=== PATIENT | male | born 1945 | race Caucasian/White ===

== ENCOUNTER 2017-10-30 01:39 | Emergency (ER) | payer MEDICARE ==
[~2017-10-30] VITALS: Ht 177.8 cm; Wt 95.3 kg
--- OUTSIDE RECORDS SUMMARY | ~2017-10-30 | XMS | Clinical Summary ---
Demographics + + + | Address | [address] | | | [place] [address] | + + + | Home Phone | | + + + | Preferred Language | Unknown | + + + | Marital Status | | + + + | Taoist Affiliation | 1076 | + + + | Race | Unknown | + + + | Ethnic Group | Unknown | + + + Author + + + | Author | [facility] | | | and [place] | + + + | Organization | [facility] | | | and [place] | + + + | Address | Unknown | + + + | Phone | Unavailable | + + + Support + + + + + | Name | Relationship | Address | Phone | + + + + + | José Amezquita | ECON | [place] | | | | | [address] | | + + + + + | Jessica Amezquita E | ECON | [address] | | | | | [place] | | | | | [address] | | + + + + + Care Team Providers + +------+ + | Care Wax Machine Operator Name | Role | Phone | + +------+ + | Dian Lr NP | PP | | + +------+ + Allergies Not on File Current Medications Not on file Active Problems Not on file Social History + +-------+ +--------+------+ | Tobacco [...] on file | | + + + Plan of Treatment + + + + + | Health Maintenance | Due Date | Last Done | Comments | + + + + + | Vaccine: | | | | | Dtap/Tdap/Td (1 - | 6 | | | | Tdap) | | | | + + + + + | Vaccine: | | | | | Pneumococcal 65+ | 2 | | | | Low/Medium Risk (1 | | | | | of 2 - PCV13) | | | | + + + + + | Vaccine: Influenza | | | | | (#1) | 8 | | | + + + + + Results Not on filefrom Last 3 Months Insurance + +--------+ +--------+-------+---------+ | Payer | Benefi | Subscriber | Type | Phone | Address | | | t Plan | ID | | | | | | / | | | | | | | Group | | | | | + +--------+ +--------+-------+---------+ | GOVERNMENT OTHER | GOVERN | [id number] | Indemn | | | | | MENT | | ity | | | | | OTHER | | | | | + +--------+ +--------+-------+---------+ + +--------+ +--------+ + + | Guarantor Name | Accoun | Relation to | Date | Phone | Billing Address | | | t Type | Patient | of | | | | | | | | | | + +--------+ +--------+ + + | SAROJ AMEZQUITA | Person | Self | [birth year] | Home: | [address] | | | al/Fam | | 1945 | [phone] | [place] | | | [place] | | | [phone] | [phone] | + +--------+ +--------+ + +"
--- OUTSIDE RECORDS SUMMARY | ~2017-10-30 | XMS | Clinical Summary ---
Demographics + + + | Address | [address] | | | [place] [address] | + + + | Home Phone | | + + + | Preferred Language | Unknown | + + + | Marital Status | | + + + | Tenriism Affiliation | 1076 | + + + | Race | Unknown | + + + | Ethnic Group | Unknown | + + + Author + + + | Author | [facility] | + + + | Organization | [facility] | + + + | Address | Unknown | + + + | Phone | Unavailable | + + + Support + + +---------+ + | Name | Relationship | Address | Phone | + + +---------+ + | Jessica Amezquita | ECON | Unknown | | + + +---------+ + Care Team Providers + +------+ + | Care Awnings Mechanic Name | Role | Phone | + [...] + + | MEDICARE | MEDICA | [id number] | | | [address] | | | RE | | | | [place] [address] | | | IP-OP | | | | | + +--------+ +------+ + + | VETERANS | [place] | [id number] | | [phone] | [address]EE [address] | | ADMINISTRATION | [place] | | | [phone] | | | ADMIN[address] | | | | [address] [place] | | | [place] | | | | [phone] | | | ON | | | [...] | Self | [birth year] | Home: | [address] | | | al/Chris | | 1945 | [phone] | [place] | | | carlos | | | [phone] | [phone] | + +--------+ +--------+ + + | SAROJ AMEZQUITA | [place] | Self | [birth year] | Home: | [address] | | | ns | | 1945 | [phone] | [place] | | | Admini | | | [phone] | [phone] | | | rohitti | | | | | | | on | | | | | + +--------+ +--------+ + +
--- OUTSIDE RECORDS SUMMARY | ~2017-10-30 | XMS | Clinical Summary ---
Demographics + + + | Address | [address] | | | [place] [address] | + + + | Home Phone | | + + + | Preferred Language | Unknown | + + + | Marital Status | | + + + | Zoroastrianism Affiliation | 1076 | + + + | Race | Unknown | + + + | Ethnic Group | Unknown | + + + Author + + + | Author | [facility] | + + + | Organization | [facility] | + + + | Address | Unknown | + + + | Phone | Unavailable | + + + Support + + +---------+ + | Name | Relationship | Address | Phone | + + +---------+ + | Jessica Amezquita | ECON | Unknown | | + + +---------+ + Care Team Providers + +------+ + | Care Reimbursement Representative Name | Role | Phone | [...] + + + | Moderate protein-calorie malnutrition ([facility]) | 05/14/2016 | + + + Social [...] + + | MEDICARE | MEDICA | [id number] | | | [address] | | | RE | | | | [place] [address] | | | IP-OP | | | | | + +--------+ +------+ + + | VETERANS | V[place] | [id number] | | [phone] | FEE SERVICES [address] | | ADMINISTRATION | [place] | | | [phone] | [phone] | | | ADMINI | | | | [address] [place] | | | [place] | | | | [phone] | | | ON | | | [...] | Self | [birth year] | Home: | [address] | | | al/Chris | | 1945 | [phone] | [place] | | | [place] | | | [phone] | [phone] | + +--------+ +--------+ + + | SAROJ AMEZQUITA | [place] | Self | [birth year] | Home: | [address] | | | ns | | 1945 | [phone] | [place] | | | Admini | | | [phone] | [phone] | | | rohitti | | | | | | | on | | | | | + +--------+ +--------+ + +
--- OUTSIDE RECORDS SUMMARY | ~2017-10-30 | XMS | Clinical Summary ---
Demographics + + + | Address | [address] | | | [place] [address] | + + + | Home Phone [...] [place] | | | | | [address] | | + + + + + | Jessica Amezquita E | ECON | [address] | | | | | [place] | | | | | [address] | | + + + + + Care Team Providers + +------+ + | Care Business Services Analyst Name | Role | Phone | [...] +--------+-------+---------+ | GOVERNMENT OTHER | GOVERN | [id number] | Indemn | | | | | [...] | Self | [birth year] | Home: | [address] | | | al/Fam | | 1945 | [phone] | [place] | | | [place] | | | [phone] | [phone] | + +--------+ +--------+ + +"
[~2017-10-30 01:39] MED LIST: ACETAMINOPHEN325 M1 PO; ALLER-CHLOR4 MG PO; ANALGESIC BALM28 GM TOP; ASPIR-TRIN325 MG PO; AUGMENTIN 875-1 EACH PO; CALCARB 600 WI1 EACH PO; CALCIUM 600 +1 EACH PO; DOCUSATE SODIU250 MG PO; ERGOCALCIF50000 UNIT PO; FENOFIBRATE145 MG PO; FERROUS SULFAT325 MG PO; GLUCOPHAGE500 MG; GLUCOPHAGE850 MG PO; HYDROCODON-ACE1 EA10 PO; HYDROCODON-ACE1 EAC8 PO; LANTUS100 UNITS/ SUB-Q; LEVOFLOXACIN500 MG PO; MIRALAX17 GM PO; MOBIC7.5 MG PO; NEURONTIN400 MG PO; NEURONTIN800 MG PO; NORCO 10-325 T1 EACH PO; NORCO 5-325 TA1 EACH PO; NOVOLOG100 UNIT/1 SUB-Q; ONGLYZA5 MG PO; PANTOPRAZOLE SO40 MG PO; PERCOCET 10-321 EACH PO; PERCOCET 5-3251 EACH PO; PRAVACHOL40 MG PO; SALSALATE750 MG PO; SILVADENE20 GM TOP; TRADJENTA5 MG PO; VIAGRA50 MG PO; VITAMIN D1000 UNI1 PO
[2017-10-30] MEDS ORDERED: GABAPENTIN600 MG PO (01:51)
[2017-10-30] MEDS ORDERED: OMEPRAZOLE20 MG PO (01:53)
[2017-10-30] MEDS ORDERED: LIPITOR20 MG PO (01:55)
[2017-10-30] MEDS ORDERED: KEFLEX500 MG PO (03:24)
== END 2017-10-30 03:47 | disposition home or self-care (01) ==
LOC: ED 01:39
DX: T14.8XXA Other injury of unspecified body region, initial encounter (principal); L08.9 Local infection of the skin and subcutaneous tissue, unspecified; E11.9 Type 2 diabetes mellitus without complications; Z87.891 Personal history of nicotine dependence; Z79.4 Long term (current) use of insulin; Z79.82 Long term (current) use of aspirin; Z79.899 Other long term (current) drug therapy; X58.XXXA Exposure to other specified factors, initial encounter
CPT/HCPCS: 73590; 87070; 87077; 87186; 87205; 99283

== ENCOUNTER 2018-03-10 23:32 | Inpatient (IN) | payer MEDICARE ==
[~2018-03-10] VITALS: Ht 177.8 cm; Wt 104.4 kg
[~2018-03-10 23:32] MED LIST changes: +KEFLEX500 MG PO; +LIPITOR40 MG PO; +OMEPRAZOLE20 MG PO
--- OUTSIDE RECORDS SUMMARY | 2018-03-10 23:36 | XMS ---
PreManage Notification: SAROJ AMEZQUITA Security Cellophane Wrapping Examiner Events No recent Security Events currently on file CRITERIA MET - GABRIELP CARE PROVIDERS Leonard Lopez DO Treatment Current PHONE: Unknown Jalen has no Care Guidelines for this patient. EMiguel Angel VISIT COUNT (12 MO.) 1 Flor Miranda M.C[facility] 2 [facility] [place] TOTAL 3 NOTE: Visits indicate total known visits. ED/UCC VISIT TRACKING (12 MO.) 03/10/2018 23:32 [place] [place] TYPE: Emergency COMPLAINT: - L HIP PAIN [facility]19[facility]2017 [facility] DIAGNOSES: - Fever, unspecified - Hip Pain - Shoulder Pain - Unspecified fall, initial encounter - Pneumonia, unspecified organism 10/30/2017 01:40 [facility] [place] TYPE: Emergency COMPLAINT: - R LEG LACERATION DIAGNOSES: - Other roasterman (current) drug therapy - Personal history of nicotine dependence - Other injury of unspecified body region, initial encounter - Exposure to other specified factors, initial encounter - Local infection of the skin and subcutaneous tissue, unspecified - Type 2 diabetes mellitus without complications - keno terminal operator (current) use of insulin - custodial (current) use of aspirin - Unspecified injury of right lower leg, initial encounter INPATIENT VISIT TRACKING (12 MO.) 11/19/2017 13:19 [facility] Kierra [facility] TYPE: Medical Surgical DIAGNOSES: - Type 2 diabetes mellitus without complications - Unspecified fall, initial encounter - Pneumonia, unspecified organism - Sepsis, unspecified organism - keno terminal operator (current) use of insulin - Fever, unspecified - Other chronic osteomyelitis, right ankle and foot - Peripheral vascular disease, unspecified [email or web address]
[2018-03-10] MEDS ORDERED: BASAGLAR K100 UNIT/1 SQ (23:45)
[2018-03-10] MEDS ORDERED: DULOXETINE HCL30 MG PO (23:45)
[2018-03-10] MEDS ORDERED: NORVASC10 MG PO (23:45)
[2018-03-15] MEDS ORDERED: HUMALOG100 UNITS/ SUB-Q (07:23)
[2018-03-15] MEDS ORDERED: PROBIOTIC1 EAC3 PO (07:25)
[2018-03-15] MEDS ORDERED: TYLENOL325 MG PO (07:29)
[2018-03-15] MEDS ORDERED: ASPERCREME 1035.4 GM TOP (07:34)
[2018-03-15] MEDS ORDERED: DULCOLAX10 MG TOP (07:35)
[2018-03-15] MEDS ORDERED: IPRAT-ALBUT 0.5-3 ML INH (07:41)
[2018-03-15] MEDS ORDERED: FLEET ENEMA133 ML PR (07:42)
[2018-03-15] MEDS ORDERED: MILK OF MA400 MG/5 M PO (07:44)
[2018-03-15] MEDS ORDERED: SENNA8.6 MG PO (07:45)
[2018-03-15] MEDS ORDERED: PREPARATION H1 EAC1 TOP (07:46)
--- NOTE | 2018-03-18 08:54 | OR ---
[facility] [address] [place], [place] [address] Signed DATE OF OPERATION: 03/17/2018 SURGEON: Caitlin Ceballos DPM PREOPERATIVE DIAGNOSIS: Osteomyelitis, right foot. POSTOPERATIVE DIAGNOSIS: Osteomyelitis, right foot. MUFFLER HAND: Jurgen Koo DPM. NURSE REGIONAL ECONOMIST: Fernando Glaser. PROCEDURE PERFORMED: Excision of necrotic bone, bone biopsy, and placement of antimicrobial beads. ANESTHESIA: MAC. HEMOSTASIS: With an ankle tourniquet. ESTIMATED BLOOD LOSS: Less than 5 mL or minimal. MATERIAL UTILIZED: 3-0 nylon, calcium sulfate beads that were mixed with 1/3rd gram of vancomycin. PROCEDURE IN DETAIL: The patient was brought into the operating room and placed upon the operating table. The right foot was then scrubbed, prepped, and draped in the usual sterile technique. Following administration of anesthesia, approximately a 4-cm incision was performed over the base of the 4th metatarsal cuboid joint region. Incision was then deepened down through the subcutaneous tissue with care being taken to identify and retract the vital neurovascular structures. These were cauterized and ligated as necessary. Careful dissection continued down to the level of the base of the 4th metatarsal cuboid region and also down to the remaining proximal portion of the 5th metatarsal. Examination of Electronically Signed By: CAITLIN CEBALLOS DPM 03/18/18 0854 PATIENT NAME: SAROJ AMEZQUITA OPERATIVE REPORT DATE OF : 49 REPORT #: [id number] PHYSICIAN: CAITLIN CEBALLOS DPM PCP: IMANI JONES DO REPORT IS CONFIDENTIAL AND NOT TO BE RELEASED WITHOUT AUTHORIZATION [facility] [address] [place], [place] [address] Signed this area found scar tissue formation from previous surgery. There was a small pocket of necrotic tissue located around the cuboid region, which was the prior area of the 5th metatarsal base. Seem to be some tunneling and some bony decay into the cuboid region. Inspection of the area around the surgical site of the 5th metatarsal revealed firm bone as well as adjacent 4th metatarsal with decent coloration noted in this area. Most of the questionable area was associated with the cuboid. This was cleaned out, curetted out, and then calcium sulfate beads were mixed with 1/3rd gram of vancomycin. These beads were formed and then the area that was curetted was packed with the use of vancomycin beads as well as along the 5th metatarsal and 4th metatarsal base area. Cultures were obtained. Specimen was sent to Pathology for microscopic examination. Area was flushed with copious amounts of sterile normal saline prior to placement of the beads. The integument was reapproximated and coapted utilizing 3-0 nylon in the horizontal mattress and simple interrupted suture technique. Mepilex was utilized to place over the surgical site followed by cast pad and a very light Coban wrap. Ankle tourniquet was removed and hyperemic response was noted to the patient's right foot. The patient was then escorted to the PACU with vital signs stable. The patient to be readmitted to the medical floor for continued IV antibiotics and observation of ongoing infection. Caitlin Ceballos DPM TM/MODL /[id number] Copies: ~ Electronically Signed By: CAITLIN CEBALLOS DPM 03/18/18 0854 PATIENT NAME: SAROJ AMEZQUITA OPERATIVE REPORT DATE OF : [birth year] REPORT #: [id number] PHYSICIAN: CAITLIN CEBALLOS DPM PCP: IMANI JONES DO REPORT IS CONFIDENTIAL AND NOT TO BE RELEASED WITHOUT AUTHORIZATION
[2018-03-24] MEDS ORDERED: OXYCODONE HCL5 MG PO (14:32)
== END 2018-03-24 15:59 | disposition home or self-care (01) | DRG 853 ==
LOC: ED 23:32 → MS 23:33
PROVIDERS: Podiatrist Foot & Ankle Surgery; ADMIT Student in an Organized Health Care Education/Training Program
PROC: 0KBW0ZZ Excision of Left Foot Muscle, Open Approach (ICD-10-PCS; 2018-03-17)
PROC: 0QBP3ZX Excision of Left Metatarsal, Percutaneous Approach, Diagnostic (ICD-10-PCS; principal; 2018-03-17 15:00)
DX: A41.9 Sepsis, unspecified organism (principal); L89.613 Pressure ulcer of right heel, stage 3; L03.115 Cellulitis of right lower limb; M86.10 Other acute osteomyelitis, unspecified site; E11.621 Type 2 diabetes mellitus with foot ulcer; I10 Essential (primary) hypertension; I25.10 Atherosclerotic heart disease of native coronary artery without angina pectoris; E11.51 Type 2 diabetes mellitus with diabetic peripheral angiopathy without gangrene; Z79.4 Long term (current) use of insulin; K21.9 Gastro-esophageal reflux disease without esophagitis; G89.4 Chronic pain syndrome; M41.9 Scoliosis, unspecified; Z87.891 Personal history of nicotine dependence; E11.69 Type 2 diabetes mellitus with other specified complication
CPT/HCPCS: 01482; 36415; 36569; 51701; 71045; 73502; 73620; 73630; 73723; 74177; 80048; 80053; 80202; 81001; 82550; 83036; 83605; 83690; 83735; 85025; 85651; 87040; 87070; 87075; 87205; 88307; 88311; 96365; 96366; 96375; 97110; 97112; 97116; 97163; 97166; 97168; 97530; 97535; 99285-25; A9579; C1713; C1751; G8978; G8979; J0692; J1650; J1815; J1885; J2250; J2405; J2704; J2765; J2795; J3010; J3370; J7030; J7060; J7120; Q9967

== ENCOUNTER 2018-06-05 20:34 | Inpatient (IN) | payer MEDICARE ==
[~2018-06-05] VITALS: Ht 177.8 cm; Wt 99.9 kg
--- OUTSIDE RECORDS SUMMARY | ~2018-06-05 | XMS | Clinical Summary ---
Demographics + + + | Address | [address] | | | [place] [address] | + + + | Home Phone | | + + + | Preferred Language | Unknown | + + + | Marital Status | | + + + | Adventism Affiliation | 1076 | + + + | Race | Unknown | + + + | Ethnic Group | Unknown | + + + Author + + + | Author | [facility] | + + + | Organization | [facility] | + + + | Address | Unknown | + + + | Phone | Unavailable | + + + Support + + +---------+ + | Name | Relationship | Address | Phone | + + +---------+ + | Jessica Amezquita | ECON | Unknown | | + + +---------+ + Care Team Providers + +------+ + | Care Geothermal Hvac Technician Name | Role | Phone | + +------+ + | Saurabh Fritz | PP | | + +------+ + Allergies No Known Allergies Current Medications + + +---------+---------+------+------+-------+ | Prescription | Sig. | Disp. | Refills | Star | End | Statu | | | | | | t | Date | s | | | | | | Date | | | + + +---------+---------+------+------+-------+ | gabapentin | Take 1,200 mg by | | | | | Activ | | (NEURONTIN) 400 MG | mouth 3 (three) | | | | | e | | capsule | times daily. | | | | | | + + +---------+---------+------+------+-------+ | saxagliptin | Take 5 mg by mouth | | | | | Activ | | (ONGLYZA) 5 MG | daily. | | | | | e | | tablet | | | | | | | + + +---------+---------+------+------+-------+ | aspirin 325 MG | Take 325 mg by mouth | | | | | Activ | | tablet | daily with | | | | | e | | | breakfast. | | | | | | + + +---------+---------+------+------+-------+ | cholecalciferol | Take 2,000 Units by | | | | | Activ | | (VITAMIN D-3) 1000 | mouth daily. | | | | | e | | UNITS | Indications: Take 2 | | | | | | | tabletIndications: | X 1000mg tabs Daily | | | | | | | Take 2 X 1000mg tabs | | | | | | | | Daily | | | | | | | + + +---------+---------+------+------+-------+ | Ergocalciferol | Take 50,000 Units by | | | | | Activ | | (VITAMIN D2) 2000 | mouth once a week. | | | | | e | | UNITS TABS | | | | | | | + + +---------+---------+------+------+-------+ | pantoprazole | Take 40 mg by mouth | | | | | Activ | | (PROTONIX) 40 MG | 2 (two) times daily. | | | | | e | | tablet | | | | | | | + + +---------+---------+------+------+-------+ | Calcium | Take 2 tablets by | | | | | Activ | | Carbonate-Vitamin D | mouth daily. | | | | | e | | 600-200 MG-UNIT CAPS | | | | | | | + + +---------+---------+------+------+-------+ | chlorpheniramine | Take 8 mg by mouth | | | | | Activ | | (CHLOR-TRIMETON) 4 | every 6 (six) hours | | | | | e | | MG tablet | as needed for | | | | | | | | Allergies. | | | | | | + + +---------+---------+------+------+-------+ | senna-docusate | Take 2 tablets by | | | | | Activ | | (PERICOLACE) 8.6-50 | mouth daily. | | | | | e | | MG per tablet | | | | | | | + + +---------+---------+------+------+-------+ | docusate sodium | Take 500 mg by mouth | | | | | Activ | | (COLACE) 250 MG | daily. | | | | | e | | capsule | | | | | | | + + +---------+---------+------+------+-------+ | atorvastatin | Take 1 tablet by | 30 | 0 | 03/0 | | Activ | | (LIPITOR) 40 MG | mouth nightly. | tablet | | 1/20 | | e | | tablet | | | | 17 | | | + + +---------+---------+------+------+-------+ | | Take 1 tablet by | 30 | 0 | 03/0 | | Activ | | HYDROcodone-acetamin | mouth every 6 (six) | tablet | | 1/20 | | e | | ophen (NORCO) 10-325 | hours as needed for | | | 17 | | | | MG per tablet | Pain. | | | | | | + + +---------+---------+------+------+-------+ | insulin glargine | Inject 20 Units into | 15 mL | 12 | 03/0 | | Activ | | (LANTUS) 100 UNIT/ML | the skin 2 (two) | | | 1/20 | | e | | injection | times daily. | | | 17 | | | + + +---------+---------+------+------+-------+ Active Problems + + + | Problem | Noted Date | + + + | GERD (gastroesophageal reflux disease) | 05/15/2016 | + + + | Hypokalemia | 05/15/2016 | + + + | Essential hypertension, benign | 05/15/2016 | + + + | Received intravenous tissue plasminogen activator (tPA) in | 05/14/2016 | | emergency department | | + + + | Acute left hemiparesis (HCC) | 05/14/2016 | + + + | Type 2 diabetes mellitus with hyperglycemia, with long-term | 05/14/2016 | | current use of insulin (HCC) | | + + + | Ischemic stroke diagnosed during current admission (HCC) | 05/14/2016 | + + + | Type 2 diabetes mellitus with diabetic neuropathy, with long-term | 05/14/2016 | | current use of insulin (HCC) | | + + + | Moderate protein-calorie malnutrition ([facility]) | 05/14/2016 | + + + Social [...] | | | + +---+---+---+ + + + | Sex Assigned at | Date Recorded | | | | + + + | Not on file | | + + + Last Filed Vital Signs + + + + | Vital Sign | Reading | Time Taken | + + + + | Blood Pressure | 121/65 | 05/19/2016 11:30 AM PST | + + + + | Pulse | 79 | 05/19/2016 11:30 AM PST | + + + + | Temperature | 36.7 C (98.1 F) | 05/19/2016 11:30 AM PST | + + + + | Respiratory Rate | 18 | 05/19/2016 11:30 AM PST | + + + + | Oxygen Saturation | 94% | 05/19/2016 11:30 AM PST | + + + + | Inhaled Oxygen | - | - | | Concentration | | | + + + + | Weight | 85 kg (187 lb 6.3 | 05/19/2016 3:36 AM PST | | | oz) | | + + + + | Height | 180.3 cm (5' 11") | 05/14/2016 5:00 AM PST | + + + + | Body Mass Index | 26.14 | 05/19/2016 3:36 AM PST | + + + + Plan of Treatment Not on file Results Not on filefrom Last 3 Months Insurance + +--------+ +------+ + + | Payer | Benefi | Subscriber | Type | Phone | Address | | | t Plan | ID | | | | | | / | | | | | | | Group | | | | | + +--------+ +------+ + + | MEDICARE | MEDICA | [id number] | | | [address] | | | RE | | | | [place] [phone] | | | IP-OP | | | | | + +--------+ +------+ + + | VETERANS | VETERA | [id number] | | [phone] | FEE SERVICES [address] | | ADMINISTRATION | [place] | | | [phone] | | | [address]MINI | | | | [address] [place] | | | [place] | | | | [phone] | | | ON | | | | | + +--------+ +------+ + + + +--------+ +--------+ + + | Guarantor Name | Accoun | Relation to | Date | Phone | Billing Address | | | t Type | Patient | of | | | | | | | | | | + +--------+ +--------+ + + | SAROJ AMEZQUITA | Person | Self [birth year] | Home: | [address] | | | al/Chris | | 1945 | [phone] | [place] | | | car[place] | | | [phone] | [phone] | + +--------+ +--------+ + + | SAROJ AMEZQUITA | [place]ana | Self | [birth year] | Home: | [address] | | | ns | | 1945 | [phone] | [place] | | | Admini | | | [phone] | [phone] | | | [place] | | | | | | | on | | | | | + +--------+ +--------+ + +
--- OUTSIDE RECORDS SUMMARY | ~2018-06-05 | XMS | Clinical Summary ---
Demographics + + + | Address | [address] | | | [place] [address] | + + + | Home Phone [...] + + + | Author | [facility] | + + + | Organization | [facility] | + + + | Address | Unknown | + + + | Phone | Unavailable | + + + Support + + +---------+ + | Name | Relationship | Address | Phone | + + +---------+ + | Jessica Amezquita | ECON | Unknown | | + + +---------+ + Care Team Providers + +------+ + | Care Patrol Sergeant Sheriff'S Office Name | Role | Phone | + [...] + + + | Moderate protein-calorie malnutrition ([facility]) | 05/14/2016 | + + + Social [...] + + | MEDICARE | MEDICA | [id number] | | | [address] | | | RE | | | | [place] [address] | | | IP-OP | | | | | + +--------+ +------+ + + | VETERANS | VETER[place] | [id number] | | [phone] | FEE SERVICES [address] | | ADMINISTRATION | [place] | | | [phone] | [phone] | | | ADMIN[address] | | | | [address] [place] | | | [place] | | | | [phone] | | | ON | | | [...] | Self [birth year] | Home: | [address] | | | al/Chris | | 1945 | [phone] | [place] | | | [place] | | | [phone] | [phone] | + +--------+ +--------+ + + | SAROJ AMEZQUITA | [place]ana | Self | [birth year] | Home: | [address] | | | ns | | 1945 | [phone] | [place] | | | Admini | | | [phone] | [phone] | | | [place] | | | | | | | on | | | | | + +--------+ +--------+ + +
--- OUTSIDE RECORDS SUMMARY | ~2018-06-05 | XMS | Clinical Summary ---
Demographics + + + | Address | [address] | | | [place] [address] | + + + | Home Phone [...] + | Jessica Amezquita | ECON | [address] | | | | | [place] | | | | | [address] | | + + + + + | [employer] | ECON | Unknown | | + + + + + | José Amezquita | ECON | [place] | | | | | [phone] | | + + + + + Care Team Providers + +------+ + | Care Operations Accountant Name | Role | Phone | + +------+ + | Dian Lr NP | PP | | + +------+ + Allergies No Known Allergies Current Medications + + + +---------+------+------+-------+ | Prescription | Sig. | Disp. | Refills | Star | End | Statu | | | | | | t | Date | s | | | | | | Date | | | + + + +---------+------+------+-------+ | docusate-senna | Take 1 tablet by | | | | | Activ | | (SENOKOT-S) 50-8.6 | mouth Daily. | | | | | e | | mg per tablet | | | | | | | + + + +---------+------+------+-------+ | gabapentin | Take 800 mg by mouth | | | | | Activ | | (NEURONTIN) 400 mg | 3 times daily. | | | | | e | | capsule | | | | | | | + + + +---------+------+------+-------+ | DULoxetine | Take 30 mg by mouth | | | | | Activ | | (CYMBALTA) [address] | 2 times daily. | | | | | e | | capsule | | | | | | | + + + +---------+------+------+-------+ | atorvaSTATin | Take 40 mg by mouth | | | | | Activ | | (LIPITOR) 40 mg | nightly. | | | | | e | | tablet | | | | | | | + + + +---------+------+------+-------+ | omeprazole | Take 20 mg by mouth | | | | [...] glargine | Inject 30 Units | | | | | Activ | | (LANTUS) [...] Take 2 tablets by | 120 | | 09/0 | | Activ | [...] 200 mg by mouth | 30 | | 09/0 | | Activ | [...] | trolamine | Apply topically | | | 09/0 | | Activ [...] Noted Date | + + + | Essential hypertension | 11/25/2017 | + + + | Insulin dependent diabetes mellitus (HCC) | 11/22/2017 | + + + | Peripheral vascular disease (HCC) | 11/22/2017 | + + + | Osteomyelitis of right foot (HCC) | 11/22/2017 | + + + | Class 1 obesity with serious comorbidity in adult | 11/22/2017 | + + + | Sepsis (HCC) | 11/19/2017 | + + + Social History + [...] + | Blood Pressure | 112/62 | 11/26/20171245 PDT | + + + + | Pulse | 72 | 11/26/20171245 PDT | + + + + | Temperature | 36.6 C (97.9 F) | 11/26/2017 1059 PDT | + + + + | Respiratory Rate | 18 | 11/26/20171245 PDT | + + + + | Oxygen Saturation | 93% | 11/26/2017 1059 PDT | + + + + | Inhaled Oxygen | - | - | | Concentration | | | + + + + | Weight | 109.4 kg (241 lb 2.9 | 11/19/20171744 PDT | | | oz) | | + + + + | Height | 177.8 cm (5' 10") | 11/19/20179 PDT | + + + + | Body Mass Index | 34.61 | 11/19/20171744 PDT | + + + + Plan [...] + + + + | Hemoglobin A1c Q3 | | | | | Months | 5 | | | + + [...] Last 3 Months Insurance + +--------+ +--------+ +---------+ | Payer | Benefi | Subscriber | Type | Phone | Address | | | t Plan | ID | | | | | | / | | | | | | | Group | | | | | + +--------+ +--------+ +---------+ | MEDICARE | MEDICA | [id number] | Medica | [phone] | | | | RE | | re | [phone] | | | | PART A | | | | | | | AND B | | | | | + +--------+ +--------+ +---------+ | [employer]MIN | VETERA | [id number] | Indemn | | | | | NS | | ity | | | | | ADMIN | | | | | | | [place] | | | | | | | [place] | | | | | + +--------+ +--------+ +---------+ + +--------+ +--------+ + + | Guarantor Name | Accoun | Relation to | Date | Phone | Billing Address | | | t Type | Patient | of | | | | | | | | | | + +--------+ +--------+ + + | SAROJ AMEZQUITA | Person | Self [birth year] | Home: | [address] | | | al/Fam | | 1945 | [phone] | [place] | | | [place] | | | [phone] | + +--------+ +--------+ + +
--- OUTSIDE RECORDS SUMMARY | ~2018-06-05 | XMS | Clinical Summary ---
Demographics + + + | Address | [address] | | | [place] [address] | + + + | Home Phone [...] + | Jessica Amezquita | ECON | [address] | | | | | [place] | | | | | [address] | | + + + + + | [employer] | ECON | Unknown | | + + + + + | José Amezquita | ECON | [place] | | | | | [phone] | | + + + + + Care Team Providers + +------+ + | Care Automobile Rental Representative Name | Role | Phone | [...] +--------+ +---------+ | MEDICARE | MEDICA | [id number] | Medica | [phone] | | | | RE | | re | [phone] | | | | PART A | | | | | | | AND B | | | | | + +--------+ +--------+ +---------+ | [employer]MIN | VETERA | [id number] | Indemn | | | | | [...] | Self | [birth year] | Home: | [address] | | | al/Fam | | 1945 | [phone] | [place] | | | [place] | | | [phone] | + +--------+ +--------+ + +
[~2018-06-05 20:34] MED LIST changes: +ASPERCREME 1035.4 GM TOP; +ASPIR 8181 MG PO; -ASPIR-TRIN325 MG PO; +BASAGLAR K100 UNIT/1 SQ; +DULCOLAX10 MG PR; +DULOXETINE HCL30 MG PO; +FLEET ENEMA133 ML PR; +HUMALOG100 UNITS/ SUB-Q; +IPRAT-ALBUT 0.5-3 ML INH; +MILK OF MA400 MG/5 M PO; +NORVASC10 MG PO; -OMEPRAZOLE20 MG PO; +OMEPRAZOLE40 MG PO; +OXYCODONE HCL5 MG PO; +PREPARATION H1 EAC1 TOP; +PROBIOTIC1 EAC3 PO; +SENNA8.6 MG PO; +TYLENOL325 MG PO
--- OUTSIDE RECORDS SUMMARY | 2018-06-05 20:36 | XMS ---
PreManage Notification: SAROJ AMEZQUITA Security Vocational Nurse Lvn Events No recent Security Events currently on file CRITERIA MET - GABRIEL CARE PROVIDERS BRIAN LOPEZ Family [facility] Current PHONE: Unknown Brian Lopez DO Treatment Current PHONE: Unknown Jalen has no Care Guidelines for this patient. Jovany VISIT COUNT (12 MO.) 1 Flor Tsai TOTAL 4 NOTE: Visits indicate total known visits. ED/UCC VISIT TRACKING (12 MO.) 06/05/2018 20:34 [facility] [place] TYPE: Emergency COMPLAINT: - SOB 03/10/2018 23:32 [facility] [place] TYPE: Emergency COMPLAINT: - L HIP PAIN [facility]2017 [facility] DIAGNOSES: - Fever, unspecified - Hip Pain - Shoulder Pain - Unspecified fall, initial encounter - Pneumonia, unspecified organism 10/30/2017 01:40 [facility] [place] TYPE: Emergency COMPLAINT: - R LEG LACERATION DIAGNOSES: - Other intermediate school teacher (current) drug therapy - Personal history of nicotine dependence - Other injury of unspecified body region, initial encounter - Exposure to other specified factors, initial encounter - Local infection of the skin and subcutaneous tissue, unspecified - Type 2 diabetes mellitus without complications - intermediate school teacher (current) use of insulin - intermediate school teacher (current) use of aspirin - Unspecified injury of right lower leg, initial encounter INPATIENT VISIT TRACKING (12 MO.) 03/11/2018 08:16 [facility] [place] TYPE: Medical Surgical COMPLAINT: - SEPSIS DIAGNOSES: - Personal history of nicotine dependence - Personal history of nicotine dependence - Type 2 diabetes mellitus with other specified complication - Pressure ulcer of right heel, stage 3 - Gastro-esophageal reflux disease without esophagitis - skilled nursing (current) use of insulin - 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 - skilled nursing (current) use of insulin - Chronic pain syndrome - Cellulitis of right lower limb - Essential (primary) hypertension - Other acute osteomyelitis, unspecified site - 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 - Other acute osteomyelitis, unspecified site - Chronic pain syndrome - Type 2 diabetes mellitus with diabetic peripheral angiopathy without gangrene - Scoliosis, unspecified - Type 2 diabetes mellitus with foot ulcer - Pressure ulcer of right heel, stage 3 - Essential (primary) hypertension - Gastro-esophageal reflux disease without esophagitis - Type 2 diabetes mellitus with foot ulcer - Scoliosis, unspecified - Type 2 diabetes mellitus with diabetic peripheral angiopathy without gangrene - Cellulitis of right lower limb - Sepsis, unspecified organism - Type 2 diabetes mellitus with other specified complication [facility]19[facility]2017 [facility] DIAGNOSES: - Type 2 diabetes mellitus without complications - Unspecified fall, initial encounter - Pneumonia, unspecified organism - Sepsis, unspecified organism - intermediate school teacher (current) use of insulin - Fever, unspecified - Other chronic osteomyelitis, right ankle and foot - Peripheral vascular disease, unspecified [email or web address]
[2018-06-05] MEDS ORDERED: CEFADROXIL500 MG PO (20:47)
--- NOTE | 2018-06-06 01:30 | NUR ---
PATIENT ARRIVED TO THE UNIT FROM ED VIA STRETCHER. 3PA TO TRANSFER TO BED. PATIENT ABLE TO HELP WITH LEFT ARM ONLY. PATIENT HAD SMALL BM, LUISITO CARE PERFORMED. BUTTOCK AREA IS RED BUT BLANCHABLE. ATTENDS IN PLACE. NO URINE AT THIS TIME. TURNED TO RIGHT SIDE. LUNGS ARE CLEAR, DIM IN THE BASED. ENOCURAGED COUGH AND DEEP BREATH. PATIENT REQUIRES 2L NC, O2 SAT 93%. PATIENT DROSWEY BUT ORIENTED. ABD IS ROUND AND FIRM, NONTENDER. BOWEL SOUNDS ACTIVE. RIGHT ARM AND LEG HAVE SIGNIFICANT NUMBNESS AND MINIMAL MOVEMENT. LEFT LEG HAS NUMBNESS & TINGLING BUT MOVEMENT IS WEAK. MULTIPLE SCABS PRESENT ON LEGS. RIGHT HEEL WOUND IS LARGE AND CIRCULAR. NO DAINAGE, WOUND BED IS CRUSTED OVER AND HARD. PICTURES WILL BE TAKEN FOR CHART. FLOATED THIS HEEL ON PILLOW. PATIENT APPEARS TO BE COMFORTABLE. DEMONSTRATES ABILITY TO USE CALL LIGHT. ALLOWED TO REST.
--- NOTE | 2018-06-06 01:56 | NUR ---
PT ADMITTED TO ROOM 110 FROM ED. 3 PERSON DEPENDENT SLIDE FROM STRETCHER TO BED, HEAVY. PT STATES HE IS DEPENDENT ON TRANSFERS TO WHEELCHAIR. ON 2 L O2, AWARE OF SURROUNDINGS, AND WHY HE IS HERE. CHANGED INCONT BM ATTENDS, SM AMOUNT STOOL, WITH VISUAL INCONT URINE.
--- NOTE | 2018-06-06 03:15 | NUR ---
PATIENT SLEEPING SOUNDLY, R 22. 2L NC, O2 SAT 90%. PATIENT'S ATTENDS DRY. IV FLUIDS PER ORDER, SITE WNL.
--- NOTE | 2018-06-06 05:37 | NUR ---
PATIENT CONTINUES TO HAVE AN ELEVATED TEMP AND APPEARS TO HAVE THE CHILLS. RR INCREASED AND O2 REQUIREMENTS INCREASED FROM 2L NC TO 5L OXYMASK. PATIENT HAS YET TO VOID. NIO TYLENOL PROVIDED. DISCUSSED WITH . NEW ORDERS FOR LR BOLUS AND MONSIVAIS PLACEMENT.
--- NOTE | 2018-06-06 06:01 | NUR ---
MONSIVAIS PLACED. PATIENT HAD SMALL AMOUNT OF URINE IN ATTEND AT THIS TIME. URINE OUTPUT FROM MONSIVAIS 100MLS, DARK JORDIN URINE. PATIENT HAD SMALL BM. ATTENDS CHANGED. REPOSITIONED PATIENT FOR COMFORT. PATIENT IS HOT TO TOUCH. ONE BLANKET ONLY APPLIED. LR BOLUS INFUSING, SITE WNL.
--- NOTE | 2018-06-06 06:12 | NUR ---
PATIENT ARRIVED AROUND 0130. AAOX3, TOTAL ASSIST TO MOVE IN BED. TEMP ELEVATED CONSISTENTLY, TYLENOL PROVIDED IN ED AND ONCE BY THIS RN. IV FLUIDS AT 125, PLUS 1L BOLUS THIS AM. PATIENT HAD NO URINE OUTPUT FOR 7+ HOURS, MONSIVAIS PLACED WITH 100MLS OUT. O2 REQUIREMENTS INCREASED FROM 2L NC TO 5L OXYMASK. WOUND ON RIGHT HEEL LEFT OPEN TO AIR, WOUND CONSULT ORDERED. TURNING PATIENT Q2H.
--- NOTE | 2018-06-06 06:44 | NUR ---
DR LOPEZ IN THE ROOM TO ASSES PATIENT. NEW VERBAL ORDER RECEIVED. VERIFIED USING THE REPEAT BACK METHOD. VITALS TAKEN AND RECORDED AGAIN PER MD ORDER.
--- NOTE | 2018-06-06 06:55 | NUR ---
URINE SMAPLE SENT. PATIENT IS RESTING IN BED. PATIENT IS ON 3L VIA OXYMASK. CALL LIGHT IN REACH. PATIENT STATED "I DONT FEEL GOOD". PATIENT CAN NOT STATE WHAT HURTS OR DOESNT FEEL GOOD. NO NEEDS NOTED. CALL LIGHT IN REACH.
--- NOTE | 2018-06-06 07:00 | NUR ---
DR CRUZ IN TO DEBRIDE WOUND TO RIGHT HEAL. PT TOLERATED WELL WITH NO PAIN. IV BOLUS INFUSING, LR AT 125ML/HR. PT REMOVED OXYGEN, SATURATIONS AT 84% ON RA. PLACED 2L NC. SATURATIONS DID NOT IMPROVE. TITRATED TO 5L. SATURATION AT 89-90%. TEMP RECEHCKED AT 101.1. CPOX IN PLACE. HEART RATE 105. WOUND TO RIGHT HEAL WITH IODAFORM, ABD, AND GAUZE WRAP IN PLACE. HELL PROTECTORS IN PLACE. CALL LIGHT IN REACH. PT VISIBLE FROM NURSING STATION.
--- NOTE | 2018-06-06 07:40 | NUR ---
PATIENT RESTING IN BED. PATIENT'S BREAKFAST ORDERED. CALL LIGHT WITHIN REACH. NO OTHER NEEDS AT THIS TIME
--- NOTE | 2018-06-06 08:16 | NUR ---
DR LOPEZ IN TO ASSESS PT.
--- NOTE | 2018-06-06 08:16 | NUR ---
DR LOPEZ IN TO ASSESS PT.
--- NOTE | 2018-06-06 08:29 | NUR ---
TITRATED TO 4L NC.
--- NOTE | 2018-06-06 09:31 | NUR ---
PATIENT SITTING UP IN BED. VITAL SIGNS AND I&O DONE. CALL LIGHT WITHIN REACH. NO OTHER NEEDS AT THIS TIME
--- NOTE | 2018-06-06 10:00 | NUR ---
TITRATED OXYGEN TO 2L NC. PT TOLERATING WELL WITH O2 SATURATION AT 92%, HEART RATE 100. CALL LIGHT IN REACH.
--- NOTE | 2018-06-06 10:26 | NUR ---
PATIENT ASKS FOR A WARM BLANKET. WARM BLANKET PROVIDED. NO OTHER NEEDS AT THIS TIME
--- NOTE | 2018-06-06 10:43 | NUR ---
2PA TO REPOSITION TO RIGHT SIDE. PT WITH 2L NC IN PLACE. FOELY IN PLACE. WOUND MRSA SWAB DONE, INFLUENZA SWAB DONE AND BOTH SENT TO LAB. VANCO STARTED. CALL LIGHT IN REACH. WARM BLANKET PROVIDED. VISIBLE FROM NURSIGNSTATION. CONTACT/DROPLET PRECAUTIONS IN PLACE.
--- NOTE | 2018-06-06 10:48 | NUR ---
PATIENT RESTING IN BED. PATIENT'S LUNCH ORDERED. CALL LIGHT WITHIN REACH. NO OTHER NEEDS AT THIS TIME
[2018-06-06] MEDS ORDERED: GLUCAGON EMERGEN1 MG INJ (11:17)
[2018-06-06] MEDS ORDERED: HUMULIN R100 UNIT/1 SUB-Q (11:21)
[2018-06-06] MEDS ORDERED: MULTI VITAMIN1 EACH PO (11:23)
[2018-06-06] MEDS ORDERED: OXYCONTIN15 MG PO (11:24)
[2018-06-06] MEDS ORDERED: ASPERCREME 1035.4 GM TOP (11:35)
[2018-06-06] MEDS ORDERED: TUMS200 MG PO (11:36)
--- NOTE | 2018-06-06 11:51 | NUR ---
PATIENT SITTING UP IN BED. RN AND IN ROOM. VITAL SIGNS DONE AFTER PATIENT VOMITED. DARRICK TEMPERATURE. RN NORIFIED. PATIENT USING A CLEAN GOWN. CALL LIGHT WITHIN REACH. NO OTHER NEEDS AT THIS TIME
--- NOTE | 2018-06-06 11:52 | NUR ---
THIS NURSE CALLED TO ROOM AFTER PT STARTED VOMITTING. SUCTION STARTED, 4MG ZOFRAN ADMINSTERED. DR LOPEZ AT BEDSIDE. PT PLACED ON 15L OXYMASK. D/T SATURATIONS BEING IN THE 80'S. EMESIS BAG PROVIDED. PT UP IN BED USING ABDOMINAL MUSCLE FOR BREATHING. RR TACHY.
--- NOTE | 2018-06-06 12:13 | NUR ---
MED REC COMPLETE
--- NOTE | 2018-06-06 12:18 | NUR ---
PATIENT VOMITED AGAIN AT 12:10 PM AND THE OXYGEN LEVEL DROP TO 83. RN NOTIFIED.
--- NOTE | 2018-06-06 12:26 | NUR ---
NAUSEA NOT IMPROVED AFTER ZOFRAN. VERBAL ORDER FROM DR LOPEZ TO ADMINSTER 12.5MG PHENERGAN Q6P. PHENERGAN ADMINSTERED. PT REPORTED NO NAUSEA AFTER PHENERGAN. HOB ELEVATED 60 DEGREES. 4L NC IN PLACE. RR 33. DR ROSS NOTIFIED, NO NEW ORDERS. O2 SATURATION 90%, HEART RAT 115. PT TO BE NPO BESIDES WATER PER SPEACH THERAPY. CALL LIGHT IN REACH. VISIBLE FROM NURSING STATION.
--- NOTE | 2018-06-06 13:05 | NUR ---
VERBAL ORDER FROM DR LOPEZ FOR VAPOTHERM TO BE PLACED. RESPITORY THERAPY CALLED.
--- NOTE | 2018-06-06 13:15 | NUR ---
PT ARRIVED TO CCU ROOM 127. PT ARRIVED AND PLACED ON VAPOTHERM. PT IS TACHYPNIC WITH RR 35-40 AT TIMES. PT IS ALERT AND ORIENTED AND IS ABLE TO SPEAK ONLY ONE WORD SENTENCES D/T DIFFICULTY BREATHING. PT IS CLAMY AND PALE WITH TEMP 100.9 ORALLY. PT APPEARS DROWSY. WILL CONTINUE TO CLOSELY MONITOR.
--- NOTE | 2018-06-06 13:22 | NUR ---
REPORT GIVEN TO CCU NURSE. PT TRANSFERED VIA STRETCHER.
--- NOTE | 2018-06-06 13:30 | NUR ---
PER MD LOPEZ PT WILL BE INTABATED D/T CONTINUED RESPIRATORY FAILURE AND FURTHER DECOMPENSATION. BULLDOZER OPERATOR NOTIFIED. SETTING UP SUPPLIES AND PREPARING FOR INTABATION.
--- NOTE | 2018-06-06 13:46 | NUR ---
PT'S CONDITION DETERIORIATING, LOTS OF STAFF IN TO HELP ASSIST TRANSFER TO CCU FOR ADDITIONAL HELP. WILL FOLLOW NEEDED
--- NOTE | 2018-06-06 14:00 | NUR ---
PT INTABATED AT 1345 BY DAVID HORAN. INTABATION WENT WELL WITH NO ISSUES. SIZE 7 ETT AND 21 AT THE GUMS. PT TOLERATED WELL. UNABLE TO PASS OG TUBE. NG TUBE INSERTED WITH NO ISSUES. X-RAY CONFIRMED PLACEMENT OF ETT AND NG TUBE. WILL CONTINUE TO CLOSELY MONITOR.
--- NOTE | 2018-06-06 15:30 | NUR ---
COMPLETE BEDDING CHANGED AND ATTENDS CHANGED. PT TOLERATED WELL. PT REMAINS ON VENILATOR. PT REPOSITIONED WITH PILLOW SUPPORT. PT IS TOLERATING WELL. MONSIVAIS CATH CHANGED TO UROMETER. WILL CONTINUE TO CLOSELY MONITOR.
--- NOTE | 2018-06-06 16:30 | NUR ---
PT RESTING IN BED. PT FIO2 DECREASED TO 40% PER MD GAGE. PT RR 15-18. SPO2 96-99%. ETCO2 39-41. HR 83-95. BP IS 100'S SYSTOLIC. PT IS RESTING ON LEFT SIDE AT THIS TIME. RIGHT LEG ELEVATED PER DR. SUMNER. DR. SUMNER WILL BE IN TO SEE PATIENT THIS EVENING. WILL CONTINUE TO CLOSELY MONITOR.
--- NOTE | 2018-06-06 16:48 | EKG ---
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
--- NOTE | 2018-06-06 18:00 | NUR ---
PT REPOSITIONED WITH PILLOW SUPPORT. ETT REMAINS UNCHANGED. RESPIRATORY THERAPY IN TO DECREASE FIO2 TO 30%. MONSIVAIS EMPTIED. MD LOPEZ IN TO SEE PATIENT ANT UPDATED ABOUT CUREENT STATUS. NO FURTHER ORDERS AT THIS TIME. PT IS TOLERATING VENTILATOR WITH ETCO2 40, SPO2 96%, HR 88, BP 108/66. RR 18. PT AT BEDSIDE AND UPDATED ABOUT CONTINUED PLAN OF CARE. NO FURTHER QUESTIONS. WILL CONTINUE TO CLOSELY MONITOR.
--- NOTE | 2018-06-06 18:30 | NUR ---
MD CRUZ IN TO SEE PATIENT AND DEBRIED RIGHT FOOT ULCER. PICTURES TAKEN AND PLACED IN THE CHART. DR. SUMNER CLEANED AND REDRESSED THE WOUND AND WILL BE BACK TOMOROW EVENING TO CLEAN AND REDRESS WOUND AGAIN. NO FURTHER ORDERS AT THIS TIME. FOOT CLEANED AND IDOFORM, GAUZE, ABD, AND KERLIX IN PLACE.
--- NOTE | 2018-06-06 18:48 | NUR ---
PT ON VENTILATOR SIMV MODE ETT SIZE 7, SECURED AND 21 AT THE GUMS. FIO2 30%, VT 500, RR-15, PEEP-5, PSUPPORT 10. PIP- 18. PT IS NOW RESTING WITH RASS -3 AT THIS TIME. GAVE FENTANYL 100MCG PER ORDER D/T PT AWAKE AND OPENING EYES. PT NODDED HEAD YES WHEN ASKED IF HAVING PAIN. WILL CONTINUE TO CLOSELY MONITOR.
--- NOTE | 2018-06-06 19:45 | NUR ---
PT MOVED FROM RM 127 TO RM 128 TO BE CLOSER TO NURSES STATION. PT NOTED TO BE SHIVERING, T [address] LOPEZ CALLED. FAMILY IN ROOM. DRSG TO R HEEL DRY AND INTACT.
--- NOTE | 2018-06-06 20:45 | NUR ---
PT WAS GIVEN 100MCG OF FENTANYL FOR COMFORT AND SEDATION. WAS GIVEN 650MG TYLENOL PER NGT FOR TEMP. TEMP RETAKEN WHEN ABG'S DONE AND NOW 103 AX. ETCO2 HAS BEEN READING 60 SINCE PT WAS TRANSFERED SO ABG'S DRAWN. PT REPOSITONED.
--- NOTE | 2018-06-06 22:30 | NUR ---
HAD TITRATED PROPOFOL UP TO 20MG/HR WHEN ABGS DRAWN HAVE NOW TITRATED IT BACK TO 10MG/HR. TYENOL WAS GIVEN PER NGT AND NGT CLAMPED. OXCONTIN GIVEN PER NGT AND THE MEDICATION CLUMPED AND CLOGGED TUBE, COLA INSTILLED AND WILL LET SIT. UPDATE TO DR LOPEZ RE THIS, IF UNABLE TO UNCLOG NGT WILL DC IT. RT INC FIO2 TO 45% AND DR LOPEZ AWARE. HE WAS ALSO INFORMED OF PT URINE OUTPUT.
--- NOTE | 2018-06-07 00:45 | NUR ---
PT REPOSITIONED AT MIDNIGHT. SUCTIONED ORALLY CHEWING ON ETT. AFTER BEING REPOSITIONED WAS GIVEN 100MCG FENTANYL FOR DISCOMFORT PULLING AT RESTRAINTS AND APPEARS TENSE. ATTEMPTED TO FLUSH NGT AND IT DID START TO FLUSH THEN AGAIN PLUGGED, ALSO ATTEMPTED TO ASPIRATED CONTENTS SEVERAL TIMES. HAVE USED FORCEPS TO COMPRESS PLUG AND IT DOES APPEAR AND FEEL SOFT. COLA AGAIN INSTILLED. WAS INSTRUCTED PER DR LOPEZ EARLIER THAT IF URINE OUTPUT DID NOT IMPROVE TO INFUSED 1 L LR AT 200ML/HR. THIS WAS STARTED.
--- NOTE | 2018-06-07 01:57 | NUR ---
STILL UNABLE TO FLUSH NGT. DC'D INTACT WITHOUT DIFFICULTY. SUCTIONED ORALLY. PROPOFOL INC TO 20MG/HR RR WAS 20'S.
--- NOTE | 2018-06-07 02:45 | NUR ---
REPOSITIONED. HAS BEEN SLEEPING IN ROOM. UPDATE GIVEN TO HER.
--- NOTE | 2018-06-07 04:42 | NUR ---
T 103.1 AX, GIVEN 650MG TYLENOL SUPP. GIVEN 100MCG FENTANYL IV FOR COMFORT AND PRIOR TO REPOSITIONING. PT INC STOOL, ATTENDS CHANGED. LIFT SHEET PLACED UNDER PT HE WAS REPOSITIONED UP IN BED AND TO L SIDE. PAULA WELL.
--- NOTE | 2018-06-07 06:06 | NUR ---
T 98.8. PT IS RESTFUL AND RELAXED. CONT ON PROPOFOL AT 20MG/HR.
--- NOTE | 2018-06-07 07:30 | NUR ---
PT SHIFT REPORT RECEIVED FROM CLINICAL APPLICATION SPECIALIST RN. PT IS RESTING I NBED AT THIS TIME WITH AT BEDSIDE. PT IS ON VENTILATOR WITH SIMV 15, VT 500, FIO2-45%, PEEP-8, PS-10. PT REMAINS ON PROPOFOL AND FENTANYL FOR SEDATION/PAIN. RESTRAINTS IN PLACE TO BILATERAL WRIST FOR TUBE POTECTION. WILL CONTINUE TO CLOSELY MONITOR.
--- NOTE | 2018-06-07 08:30 | NUR ---
SPOKE WITH MD LOPEZ. PE MD LOPEZ DECREASE IV FLUIDS TO 75MLS/HR. DO NOT REPLACE NG/OG TUBE AT THIS TIME. HOLD ALL PO MEDICATIONS. WILL TRY SEDATION VACATION AND SPONT. BREATHING TRIAL TODAY. CONTINUE WITH FENTANYL D/T CHRONIC PAIN PER MD. PT ASSESSMENT COMPLETED. PT BREATH SOUNDS CLEAR THROUGHOUT AND DIMINISHED IN THE RIGHT BASE. BOWEL TONES ACTIVE. MONSIVAIS CATH CARE PROVIDED. PT RIGHT FOOT DRESSING REMAINS C/D/I. RT IN TO DO ORAL CARE AND NEB TREATMENT. PT ETT 21 AT [facility], SIZE 7 TUBE. VENTILATOR SETTINGS REMAIN UNCHANGED. PUMPS CLEARED. WILL CONTINUE TO CLOSELY MONITOR.
--- NOTE | 2018-06-07 09:25 | NUR ---
PROPOFOL OFF AND PT OPENING EYES AND FOLLOWING COMMANDS. STARTED PATIENT ON BREATHING TRIAL OF CPAP. WILL CONTINUE TO CLOSELY MONITOR. VT 400-800 AT THIS TIME. RR 16-22. SPO2 100%. HR 95
--- NOTE | 2018-06-07 09:45 | NUR ---
PT IS TOLERATING BREATHING TRIAL AT THIS TIME. RESPIRATORY THERAPY REMAINS IN THE PATIENT ROOM MONITORING PATIENT AT THIS TIME. WILL CONTINUE TO CLOSELY MONITOR.
--- NOTE | 2018-06-07 10:05 | NUR ---
PT ON CPAP SETTING WITH PS 0 AND PEEP 5. PT HR SLOWLY TRENDING UP TO 105. MD WRIGHTO IN TO SEE PATIENT. PLACED PATIENT BACK ON SIMV. PROPOFOL RESTARTED. FENTANYL 100MCG GIVEN. PT BEGAN COUGHING AND RR HIGH 20'S BEFORE SWITCHING FROM CPAP TO SIMV. PT APPEARED TO BE WORKING HARDER TO BREATH PRIOR TO SWITCHING SETTINGS. PER MD WILL ALLOW PT TO REST NOW AT THIS TIME AND WILL ATTEMPT SEDATION HOLIDAY AND BREATHING TRIAL AGAIN TOMORROW. PER MD REPLACE NG/OG TUBE. WILL CONTINUE TO CLOSELY MONITOR.
--- NOTE | 2018-06-07 11:00 | NUR ---
PT REMAINS ON VENTILATOR WITH SIMV 15, VT-500, FIO2- 45%, PEEP-8, PS-10. TUBE REMAINS UNCHANGED. PT IS ON 25MCG/KG/MIN OF PROPOFOL. PT IS TOLERATING WELL. NG TUBE REPLACED WITH NO ISSUES. INITIAL RETURN OF GREEN BILE CONTENTS. GAVE PRN TYLENOL AND CLAMED TUBE. WILL CLAMP FOR 1 HOUR. PT REMAINS AT THE BEDSIDE AND HAS BEEN UPDATED. WILL CONTINUE TO CLOSELY MONITOR.
--- NOTE | 2018-06-07 12:00 | NUR ---
ASSESSMENT AND MEDICATION DUE. ASSESSMENT DONE. ON VENTILATOR WITH SIMV 15, VT 500, FIO2-45%, PEEP-8, PS-10. ET TUBE IN PLACE, SIZE 7, 21 CM AT THE GUMS. pt ON PROPOFOL AND FENTANYL FOR SEDATION AND PAIN. RESTRAINTS IN PLACE TO BILATERAL WRISTS FOR TUBE PROTECTION. NG TUBE IN PLACE TO LOW INT SUCTION, DRAINING GREEN. BREATH SOUNDS CLEAR, DIMINISHED IN BASES. DRESSING ON RIGHT FOOT CDI. pt OUTPUT LOW. MD NOTIFIED BY ELLIOT OMALLEY. IVF INCREASED FROM 75 MLS/HR TO 125 MLS/HR PER VERBAL ORDER. AT BEDSIDE. WILL CONTINUE TO MONITOR CLOSELY.
--- NOTE | 2018-06-07 14:00 | NUR ---
ROUNDED ON pt. IV ABX INFUSING (SEE MAR). BED BATH GIVEN. PERICARE DONE. LINENS CHANGED. SCANT YELLOW DRAINAGE NOTED ON DRESSING OF RIGHT HEEL. MONSIVAIS CARE DONE. OUTPUT IMPROVED. VENT SETTINGS UNCHANGED. ETT REMAINS IN SAME LOCATION. NG CLAMPED AT 1500 FOR MEDICATION ADMINISTRATION.
--- NOTE | 2018-06-07 16:00 | NUR ---
ASSESSMENT DONE. NEW BAG OF LR INFUSING (SEE MAR). pt RESPONDS TO NAME AND COMMANDS REFUSES TO OPEN EYES, SHAKES HEAD NO WHEN ASKED TO. NO CHANGES IN VENT SETTINGS. IVF INFUSING, IV ABX INFUSING (SEE MAR). PROPOFOL INFSING AT 15 MCG/KG/HR. DR VASQUEZ IN TO SEE pt. RT IN TO DRAW ABG.
--- NOTE | 2018-06-07 17:09 | NUR ---
ROUNDED ON pt. OPENED EYES WHEN ASKED TO. pt SHIVERING ON AND OFF. LIGHT BLANKET PROVIDED.
--- NOTE | 2018-06-07 17:15 | NUR ---
CALLED MD TO UPDATE ABOUT ABD RESULTS. NO NEW ORDERS AT THIS TIME. ALSO UPDATED THAT WE ARE UNABLE TO GET A PICC LINE TODAY, BUT THE STAFF SHOULD BE IN TOMORROW TO PLACE PICC LINE. WILL CONTINUE TO CLOSELY MONITOR.
--- NOTE | 2018-06-07 17:25 | NUR ---
TURNED pt WITH HELP FROM JUAN C AND LUIS OMALLEY. pt OPENED EYES. NODDED TO QUESTIONS ABOUT PAIN. ELLIOT IRIZARRY WILL GIVE PAIN MEDS.
--- NOTE | 2018-06-07 18:00 | NUR ---
TUBE FEEDING SUPPLIES ARRIVED. TUBE FEEDING MATERIAL CLARIFIED WITH DR. VASQUEZ BY ELLIOT OMALLEY. CAMILLE ENSURE STARTED FOR TUBE FEEDING THROUGH NG TUBE. 10 MLS/HR.
--- NOTE | 2018-06-07 18:03 | NUR ---
VERIFIED TUBE FEED ORDER WITH MD VASQUEZ. THE KITCHEN DOES NOT HAVE GLUCERNA 1.2 CHANDRIKA. PER MD GIVE REGULAR ENSURE NOW AND CONSULT PYTHON WEB DEVELOPER. WILL PLACE ORDER.
--- NOTE | 2018-06-07 20:00 | NUR ---
RECEIVED REPORT AT 1900, FOUND PT ON VENT, WITH NG-TUBE, IV SITES X2 AND SOFT WRIST RESTRAINTS PRESENT. URINE OUTPUT FROM 1900-200 WAS 150, NG-TUBE FEEDING IS GOING AT 10ML/HR WITH ENSURE. PROPOFOL WAS AT 20MCG. PT HAD A RASS OF -3. THEREFORE PROPOFOL RATE WAS CHANGE TO 15MCG TO ACHIEVE A RASS OF -1. TUBING WAS ALSO CHANGED.
--- NOTE | 2018-06-07 20:30 | NUR ---
DRESSING ON RIGHT HEEL WAS CHANGED PER ORDER. IV'S ARE BOTH PATENT. ORAL CARE WAS DONE, SOFT WRIST RESTRAINTS ARE WDL. RADIAL PULSES +2, PEDAL PULSES +1. GNERAL EDEMA PRESENT RANGING FROM +1 TO +2. ABD SOUNDS ARE HYPOACTIVE, LUNGS ARE CLEAR BUT DIMINISHED IN THE BASES. S1 S2 HEARD. RT DID NEB AND CHANGED FIO2 FROM 45% TO 21%. PT IS MAINTAINING O2 SATS AT 98%. NO NEW CONCENRS AT THIS TIME.
--- NOTE | 2018-06-07 20:30 | NUR ---
PT WAS TURNED. PT TOLERATED WELL.
--- NOTE | 2018-06-07 22:00 | NUR ---
AT START OF SHIFT PT HAD A TEMP OF 99.2 F. AT THIS TIME TEMP IS 100.0 F. WILL CONTINUE TO MONITOR. OVERALL PT IS TOLERATING FIO2 OF 21% WELL. OTHERWISE V/S ARE WDL. URINE OUTPUT IS STILL ADEQUATE, RESTRAINTS ARE WDL, ROM WAS DONE, PT WAS TURNED. RASS SCORE AT -2 AT THIS TIME. 50MCG OF IV FENTANYL WAS GIVEN DUE TO INCREASED HR AND BP. THIS WAS TAKEN A SIGN OF POSSIBLE PAIN.
--- NOTE | 2018-06-07 23:00 | NUR ---
RASS SCORE AT THIS TIME IS -1, PT NEEDED TO BE SUCTIONED, PROPOFOL RATE AT 15MCG, PT DENIES PAIN AT THIS TIME. ORAL CARE DONE. V/S WDL, URINE OUTPUT IS ADEQUATE. TEMP IS 99.9 F.
--- NOTE | 2018-06-08 | NUR ---
PROPOFOL JUST CHANGED TO 10MCG DUE TO BP OF 101/54. WILL MONITOR. RASS SCORE -1. CPOT AT THIS TIME IS A 5, 50MCG FENTANYL TO BE GIVEN. BS WAS 184, 3 UNITS OF INSULIN TO BE GIVEN PER ORDER.
--- NOTE | 2018-06-08 00:40 | NUR ---
PT STARTED TO BE AGITATED, RASS +1. PROPOFOL DRIP AGAIN AT 15MCG AT FIRST AND AT THIS TIME AT 20MCG. PT ALSO MANAGED TO DISCONNECT HOSE TO VENT PROBABLY WHILE TURNING HIS HEAD. PT WAS ALSO TURNED, PT DENIES PAIN AT THIS TIME, RASS SCORE -1 AT THIS TIME. URINE OUTPUT ONLY 23ML FROM [id number]. WILL CONTINUE TO MONITOR FOR ANOTHER HOUR AND THEN CALL MD VASQUEZ. RESTRAINTS HAVE BEEN LOOSENED. RADIAL PULSES +2, EDEMA OVERALL +2 IN LEGS, HAND AND FEET. DRESSING ON RIGHT FOOT IS C/D/I, PT WAS SUCTIONED, LOBES CLEAR, ABD SOUNDS ARE ACTIVE AT THIS TIME. PT ALSO HAD A TEMP OF 100.9, PRN PO TYLENOL WAS GIVEN AND FLUSHED WITH 70ML OF H2O.
--- NOTE | 2018-06-08 02:14 | NUR ---
CPOT AT THIS TIME IS 0, V/S ARE WDL, URINE OUPUT FOR 011-0200 ONLY 6 ML. WILL CONTINUE TO MONITOR. TEMP AT THIS TIME 99.9 F, RASS SCORE -2. URINE OUTPUT FROM [id number] WAS 50ML. PT WAS TURNED WITH HIPS FLOATED AT 0100.
--- NOTE | 2018-06-08 02:35 | NUR ---
SINCE URINE OUTPUT WAS ONLY 6ML AT 0200, A BLADDER SCAN WAS DONE. HIGHEST VOLUME FOUND WAS 38ML.
--- NOTE | 2018-06-08 03:16 | NUR ---
AT 0300 PT BECAME AGITATED AGAIN. THE BELIEVE WAS THAT PT BECAME TOO ALERT AT THAT TIME. POPOFOL WAS INCREASED FROM 20MCG TO 25MCG AND THEN TO 30MCG FOR ABOUT 5MINUTES. PT AT THIS TIME IS AT 20MCG AGAIN. PT IS PROFUSLEY. URINE OUTPUT FROM [id number] WAS 38ML. WILL CONTINUE TO MONITOR. FIO2 WAS INCREASED BY RT TO 30. PT WAS ALSO SUCTIONED SINCE IT WAS AUDIBLE THAT THERE WAS MUCUS PRESENT IN THE BACK OF HIS MOUTH. THE FEEDING PUMP WAS BRIEFLY STOPPED DUE TO POSSIBLE CONCERNS FOR ASPIRATION. NG-TUBE WAS PUT TO SUCTION FOR ABOUT A MINUTE WITH NOT MUCH FLUIDS PRESENT. THEREFORE, FEEDING WAS RESUMED AT ORDERED RATE.
--- NOTE | 2018-06-08 05:14 | NUR ---
URINE OUTPUT HAS PICKED UP SOME FROM 4405-3760 TO 65ML. PT WAS SO MUCH PERSPIRING THAT THE BED LINENS HAD TO BE CHANGED. PT ALSO RECEIVED A BED BATH, ORAL CARE WAS DONE, PT WAS TURNED AND ROM WAS DONE. V/S ARE WDL, PROPOFOL IS GOING AT 20MCG, EDEMA IN HANDS/ARMS IS +3, OVERALL GENERALIZED EDEMA +2. TEMP 98.0 F.
--- NOTE | 2018-06-08 05:35 | NUR ---
OVERALL PT DID WELL THIS SHIFT. V/S OVERALL WERE WDL WITH THE EXCEPTIONS OF HIS TEMP. IT WAS ANY WHERE FROM 99.2-100.9 FROM 1822-7791. PRN TYLENOL WAS GIVEN WHICH HELPED. PT IS AFEBRILE AT THIS TIME. POPOFOL WAS OVERALL AT 20MCG THIS SHIFT. PT NEEDED SUCTIONING AT TIMES. ORAL CARE WAS DONE SEVERAL TIMES THIS SHIFT. RASS WAS ANYWHERE FROM -1 TO -3 OVERALL. URINE OUTPUT FROM [id number] WAS INADEQUATE. PT HOWEVER DID SWEAT A LOT ONCE HIS TEMP STARTED TO GO DOWN. BED LINENS HAD TO BE CHANGED AND PT RECEIVED A BED BATH. NG-TUBE FEEDING HAS BEEN RUNNING ORDERED. DRESSING ON RIGHT HEEL WAS CHANGED AT 1999. MD CRUZ CALLED LAST NIGHT AND SAID HE WOULD BE HERE ON 06/08/18 @ 0800. PT HAS BEEN TURNED FREQUENTLY, ROM DONE. BM THIS MORNING. FENTANYL IV WAS GIVEN AT A DOSE OF USUSALLY 50MCG WHICH SEEMED TO CONTROL THE PAIN ADEQUATLEY. LOBES OVERALL HAVE BEEN CLEAR BUT VERY DIMINISHED IN THE BASES AT TIMES. ABD SOUNDS WENT FROM HYPOACTIVE TO ACTIVE DURING THIS SHIFT. EDEMA ON HANDS AND ARMS HAS INCREASED FROM +2 TO +3. JENNIFER. LEGS AND FEET HAS +2 EDEMA PRESENT. PEDIS PULSES AT THIS TIME HAVE TO BE FOUND VIA DOPPLER.
--- NOTE | 2018-06-08 09:06 | NUR ---
DR VASQUEZ IN THE DEPARTMENT, STARTED VACATION SEDITATION AT THIS TIME. AFTER SEDATION IS TURNED OFF RT CAN START CPAP. DR VASQUEZ WANTS TO FOLLOW THE SEDATION AWALENING TRAIL. PT UPDATED AT THIS TIME. AND SHE IS PRESENT IN THE ROOM DR VASQUEZ TALKED WITH HER. ALL QUESTIONS ANSWERED.
--- NOTE | 2018-06-08 09:44 | NUR ---
ALL SEDATION IS OFF AT THIS TIME, PT IS ON CPAP AT THIS TIME. HAS INCREASED PAIN FROM ET TUBE MEDICATED WITH FENTANYL 50MCG IVP AT THIS TIME. THEN PT C/O NAUASEA 4MG OF ZOFRAN IVP GIVEN.
--- NOTE | 2018-06-08 09:58 | NUR ---
pt exbuated at this time, rt and dr orozco present. pt did well. NG DC'D ALSO AT THIS TIME. PT FOLLOWED DRECTIONS WELL WITH THIS PROCESS. PT HAS BEEN ON ROOM AIR AND FIO2 IS 93 TO 100%. IS BACK AT THE BEDSIDE. RESTRAINTS REMOVED ALSO DUERING THIS TIME. AND PT WAS REPOSITIONED IN BED. BED IN THE LOW POSITION SIDE RAILS UP AND CALL LIGHT WITH IN REACH. PT WATCHING TV AT THIS TIME. WILL TRY CLEAR LIQUIDS ABOUT 11:00 THIS AM. PT WAS NAUSEA AND WAS TRYING TO VOMET WHEN ET-TUBE WAS INPLACE. CURRENTLY PT DOES NOT C/O NAUSEA 10:37.
--- NOTE | 2018-06-08 10:46 | NUR ---
PT TAKING IN SOME ICE CHIPS ASKED WHEN HE COULD HAVE REAL FOOD. EXPLAINED THAT HE COULD HAVE CLEAR LIQUIDS AT LUNCH AND TRY FULL LIQUIDS AT DINNER.
--- NOTE | 2018-06-08 11:25 | NUR ---
SPEECH AND SWOLLOW EVEUAL BEING DONE AT THIS TIME. PT IS COOPERATIVE WITH THIS PROCESS.
--- NOTE | 2018-06-08 11:55 | NUR ---
PT ATE SOME JELLO AND APPLESAUSE AND THEN C/O NAUSE AND HAVING TO HAVE A BM. STAFF GOT THINGS READY TO GET TO THE BEDSIDE, BUT PT DID NOT WANT TO GET UP AT THIS TIME. PHERGRAN 12.5 MG SLOW IV PUSH GIVEN.
--- NOTE | 2018-06-08 12:20 | NUR ---
REPOT HANDOFF OLIVIA FISHER RN, THIS NURSE ASSUMING CARE.
--- NOTE | 2018-06-08 12:58 | NUR ---
PT WAS EXTEBATED THIS MORNING, HE WAS LYING IN BED, ALERT AND ACKNOWLEDGED MY PRESENCE. I LET HIM KNOW WHO I WAS, AND THAT I KNEW IT WAS DIFFICULT RIGHT NOW, JUST WANTED TO EXTEND A BLESSING, AND LET HIM KNOW I WILL CHECK BACK AGAIN. HE THANKED ME AND WAVED. HIS WAS ASLEEP IN THE CHAIR NEXT TO PT. I WILL FOLLOW NEEDED
--- NOTE | 2018-06-08 13:40 | NUR ---
PATIENT RESTING IN BED WATCHING TELEVISION. DOES NOT WANNA BE REPOSITONED AT THIS TIME, WILL REAPPROACH AFTER DUNEB SCHEDULED AT 1400. WENT HOME AND PLANS TO RETURN THIS EVENING. NATE ZARATE TO CCU FOR PICC LINE PLACEMENT. PATIENT REFUSED AT THIS TIME AND STATED " MY CONSENTS FOR ME" UNABLE TO GET AHOLD OF THE AT THIS TIME. NATE ZARATE WILL ATTEMPT TO GET CONSENT TOMOROW, CONSENT IS ON CHART.
--- NOTE | 2018-06-08 14:33 | NUR ---
PATIENT NOW EXTUBATED. CONSULT FOR TUBE FEEDING FORMULA NO LONGER NEEDED. PATIENT ON A CLEAR LIQUID DIET AT THIS TIME. PER ST, HAS MILD OROPHARYNGEAL DYSPHAGIA WITH UPPER DENTURES AND LOWER JAW IS EDENTULOUS. THE RECOMMENDATION WHEN DIET IS ADVANCED IS TO BE SOFT AND BITE-SIZED. PATIENT HAS STAGE 3 FOOT ULCER. WILL CONTINUE TO MONITOR FOR FURTHER NUTRITION INTERVENTION WHEN DIET IS ADVANCED.
--- NOTE | 2018-06-08 14:58 | NUR ---
PATIENT REQUESTED TO SIT UP IN BED AFTER BREATHING TREATMENT AND BE POSITIONED TO LOOK OUT WINDOW. ADMINISTERED PRN OXYCONTIN AND SCHEDULED GABAPENTIN. PATIENT SWALLOWED PILLS WELL. OFFERED PATIENT SOMETHING SOFT TO EAT, REFUSED AT THIS TIME. IS DRINKING WATER, NO COMPLAINTS OF NAUSEA OR VOMITTING. O2 SATURATIONS 92% ON RA.
--- NOTE | 2018-06-08 18:58 | NUR ---
PATIENT SITTING UP IN BED, CBG 229 ADMINISERED 5 UNITS. EATING DINNER, SOFT FOODS. PAIN WELL CONTROLLED. NEW ORDER TO DC IV FLUIDS. NEB TREATMENTS NOW PRN. OXYGEN SATURATION 93% ON ROOM AIR. NO OTHER NEEDS AT THIS TIME. CALL LIGHT WITHIN REACH.
--- NOTE | 2018-06-08 19:30 | NUR ---
RECEIVED REPORT AT 1900, FOUND PT IN BED EATING DINNER. NO NEW CONCERNS AT THE MOMENT.
--- NOTE | 2018-06-08 20:25 | NUR ---
AFTER PT WAS DONE WITH DINNER, PT LOWERED THE HEAD OF THE BED AND FELL ASLEEP. WHEN I ENTERED THE ROOM AT 1999 PT WAS AWAKE BUT IN SOME RESPIRATORY DISTRESS WITH RR IN THE UPPER 20'S TO LOWER 30'S. PT STATED HE HAS SOB. PT WAS SAT UP IN BED, LEFT LOBES HAD SOME FINE CRACKLELING PRESENT IN THE FRONT. ALL LOBES HAD SOME EXPIRATORY WHEEZING PRESENT IN THE BACK. RT WAS CALLED A NEB WAS GIVEN, MD VASQUEZ WAS ALSO INFROMED. NO NEW ORDERS WERE RECEIVED VIA PHONE.
--- NOTE | 2018-06-08 20:30 | NUR ---
RECEIVED REPORT AT 1900, FOUND PT IN BED EATING DINNER. NO NEW CONCERNS NOTED AT THE MOMENT.
--- NOTE | 2018-06-08 21:00 | NUR ---
PT DENIES SOB AT THIS TIME BUT RR IS STILL IN THE MID 20'S. PT NOW IS COMPLAINING OF PAIN IN HIS BUTTOCKS BUT REFUSES TO HAVE ANY PILLOWS PLACED FOR COMFORT. OXY 5MG WAS GIVEN FOR PAIN7/10. WILL MONITOR. PO MEDS WERE GIVEN WITH PUDDING DUE TO ASPIRATION CONCERNS EARLIER IN THE SHIFT.
--- NOTE | 2018-06-08 22:00 | NUR ---
PAIN AT THIS TIME IS WELL CONTROLLED. PT WAS PUT ON BSC WITH THE MIREYA LIFT. PT HAS NO SOB AT THIS TIME. URINE OUTPUT HAS DECREASED IN THE PAST 2HRS TO 25ML/HR. PO INTAKE WAS ENCOURAGED. WILL CONTINUE TO MONITOR.
--- NOTE | 2018-06-09 | NUR ---
PT AT THIS TIME IS STILL SITTING IN CHAIR. PO INTAKE HAS ONCE BEEN ENCOURAGED. URINE OUTPUT IS A LITTLE BETTER.
--- NOTE | 2018-06-09 01:11 | NUR ---
MD VASQUEZ WAS CALLED FOR CONTINUED LOW URINE OUTPUT. NO NEW ORDERS WERE RECEIVED. WILL CONTINUE TO MONITOR AND ENCOURAGE PO FLUIDS.
--- NOTE | 2018-06-09 02:00 | NUR ---
PT AT THIS TIME IS BACK IN BED. SO FAR, OXY 5MG DOES NOT SEEM TO HELP HIS PAIN. PT HAS BEEN TURNED AND READJUSTED WITH PILLOWS BUT TO NO AVAIL. URINE OUTPUT STILL LOW.
--- NOTE | 2018-06-09 02:47 | NUR ---
PT STILL HAS NOT SLEPT SO FAR. PT JUST COMPLAINED OF SEVERE NAUSEA WITH SUDDEN ONSET. PT OVERALL SEEMS VERY ANXIOUS.
--- NOTE | 2018-06-09 04:00 | NUR ---
PT IS SLEEPING AT THIS TIME. LUNGS WHILE SITTING UP IN BED ARE DIMINISHED BUT CLEAR. PEDIS PULSES ARE +1. URINE OUTPUT FROM [id number] WAS 150ML. V/S OVERALL ARE WDL, RR IN THE LOW 20'S.
--- NOTE | 2018-06-09 05:54 | NUR ---
PT IS STILL SLEEPING AT THIS TIME. NO NEW CONCERNS NOTED. V/S ARE ALL WDL, URINE OUTPUT NOW IS ADEQUATE.
--- NOTE | 2018-06-09 05:58 | NUR ---
WITHIN THE HOUR OF SHIFT START PT BECAME SOB AND RR WAS IN THE UPPER 20'S TO LOWER 30'S, PT AT THAT TIME WAS SLEEPING AND HAD LOWERED THE HOB. PT WAS SAT UP, LEFT LOBES AT THAT TIME HAD FINE CRACKLES PRESENT AND EXPIRATORY WHEEZING WAS ALSO PRESENT. PT WAS IN SOME RESP. DISTRESS. RT ADMINISTERED NEB AND MD VASQUEZ WAS CALLED. PO MEDS AT THAT TIME WERE GIVEN WITH PUDDING AND PT TOLERATED IT WELL. PT WAS ALSO PUT IN THE CHAIR VIA MIREYA LIFT AND REMAINED THERE FOR A COUPLE OF HOURS. PT AT THAT TIME DENIED ANY SOB AND HAD NO SIGNS OD RES. DISTRESS. URINE OUTPUT STARTED TO DECREASE ALSO THE SHIFT PROGRESSED AND MD VASQUEZ WAS CALLED TO INFORM. NO NEW ORDERS WERE GIVEN. AFTER TRANSFERING PT BACK TO BED PT SHORTLY THEREAFTER BECAME NAUSEADED AND ANXIOUS/PANICKED WELL. PHENERGAN 12.5MG WAS GIVEN. PT THEN FELL ASLEEP AND PT WAS AT EASE OVERALL. V/S ALSO WERE WDL ALL AROUND. PT SINCE HAS REMAINED SLEEPING AND HAS BEEN FREQUENTLY TURNED THIS SHIFT. PT MUST REMAIN SITTING UP AT AT LEAST 30 DREGREES, OTHERWISE PT WILL GET SOB AND CRACKLES WILL BE HEARD. OTHERWISE WHILE SITING UP, LUNGS ARE CLEAR BUT DIMINISHED. PO INTAKE HAS BEEN ENOURAGED. NO NEW CONCERNS NOTED AT THIS TIME.
--- NOTE | 2018-06-09 07:30 | NUR ---
REPORT RECIEVED. PATIENT IS RESTFUL WITH HOB ELEVATED. NO DISTRESS NOTED.
--- NOTE | 2018-06-09 07:45 | NUR ---
OOB VIA MIREYA LIFT. HAVING STOOL. RECTAL AREA AND BUTTOCKS ARE VERY TENDED. TO SHOWER VIA SHOWER CHAIR.
--- NOTE | 2018-06-09 08:20 | NUR ---
TOLERATE SHOWER WELL, 2 STAFF ASSISTED PATIENT SHOWER. PATIENT IS TALKAIVE.
--- NOTE | 2018-06-09 09:00 | NUR ---
TOLERATED SHOWER WELL. BACK TO BED. READY TO EAT BREAKFAST.
--- NOTE | 2018-06-09 09:30 | NUR ---
TOOK BREAKFAST WELL. C/O SLIGHT NAUSEA. HOB REMAINS ELEVATED. WILL DC MONSIVAIS CATH AFTER PATIENT REST. STATES HE IS FEELING VERY TIRED RIGHT NOW.
--- NOTE | 2018-06-09 10:00 | NUR ---
SLEEPING, NO DISTESS NOTED.
--- NOTE | 2018-06-09 11:50 | NUR ---
DR. VASQUEZ HERE TO SEE PATIENT, PATIENT IS VERY DROWSY. ORDERS RECIEVED.
--- NOTE | 2018-06-09 12:30 | NUR ---
MEDICATIONS GIVEN PER ORDERS.
--- NOTE | 2018-06-09 13:30 | NUR ---
sitting up in bed to eat lunch. IN ROOM. PATIENT DENEIS NEED FOR PAIN MEDICATION. DROWSY.
--- NOTE | 2018-06-09 15:00 | NUR ---
SLEEPY MOST OF DAY. SHAVE GIVEN. INGRIS NOTED. PATIENT STATES PT IS TO USE CPAP AT HOME, THIS NOT USED AT HOME PATIENT NOT ABLE TO TOLERATE.
--- NOTE | 2018-06-09 17:30 | NUR ---
THIS AM FAXED UPDATED CHART NOTES TO [facility] DR VASQUEZ THINKS HE MAY BE SENDING HIM BACK TO [facility] THIS WEEKEND. THESE INCLUDED-FACE SHEET, ER NOTES AND SUMMARY H AND P, PROG NOTES, IMAGING, LAB, PT AND OT EVALS. RECIEVED FAX CONFIRMATION OF THIS.
--- NOTE | 2018-06-09 18:00 | NUR ---
MIDLINE PLACED BY BOBBY RN TO R UPPER ARM. TOLERATED WELL.
--- NOTE | 2018-06-09 18:15 | NUR ---
CALL RECEIVED FROM DEPOSIT REFUND CLERK REQUESTING INSERTION OF MIDLINE IN THIS PATIENT. PATIENT'S NURSE, ELLIOT CHAUDHARI INTERVIEWED, PATIENT QUESTIONED, EMR REVIEWED. 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 RIGHT UPPER ARM VENOUS ANATOMY IS VISUALIZED WITH SITE RITE ULTRASOUND AND BASILIC VEIN IS NOTED TO BE LARGER THAN 10 GU[place]AN. UNABLE TO THREAD GUIDEWIRE WITH 1ST VENOUS ACCESS. 2ND ATTEMPT JUST SUPERIOR OF THE 1ST ATTEMPT IS SUCCESSFUL. MIDLINE IS INSERTED USING STERILE TECHNIQUE PER PROTOCOL AND PATIENT TOLERATES THE ENTIRE PROCEDURE WELL. LINE IS FLUSHED W/10 ML NS. GOOD BLOOD RETURN AND LINE FLUSHES EASILY. PATIENT IS REPOSITIONED IN BED. CALL LIGHT IS W/IN REACH. DINNER TRAY IS PUT IN FRONT OF PATIENT AND HE IS SITTING UP EATING AND TOLERATING THAT WELL. VERBAL REPORT GIVEN TO FARA ELIAS, CCU RN.
--- NOTE | 2018-06-09 18:43 | NUR ---
OXYCODONE GIVEN FOR C/O GENERAL PAIN
--- NOTE | 2018-06-09 19:09 | NUR ---
DR. VASQUEZ HERE TO SEE PATIENT. WILL BE TRANSFERED TO MEDICL FLOOR THIS NIGHT ATTENDS CAHNGED FOR STOOL AND LARGE AMOUNT OF URINE.
--- NOTE | 2018-06-09 20:00 | NUR ---
RECEIVED REPORT AT 1900, PT WAS IN BED SLEEPING. PT AT THAT TIME ALSO RECEIVED TRANSFER ORDERS TO MED-SURG. PT TO TRANSFER IN A FEW MINUTES.
--- NOTE | 2018-06-09 21:53 | NUR ---
VITALS DONE AND CHARTED.
--- NOTE | 2018-06-09 22:49 | NUR ---
ASSESSMENT AND MEDICATIONS DUE. ASSESSMENT DONE. pt STATED PAIN 5/10 "IMPROVED" FROM EARLIER. REPORTED PAIN IN LEFT CALF. NO REDNESS OR SWELLING NOTED, NOT WARM TO TOUCH. pt REPORTED THAT THE PAIN BEGAN THIS MORNING AND HAS NOT IMPROVED. CALF MEASURED 35.5CM. MEDICATIONS GIVEN (SEE MAR). pt WATCHING TV IN BED. NO REQUESTS AT THIS TIME. CALL LIGHT WITHIN REACH.
--- NOTE | 2018-06-09 23:15 | NUR ---
IV ABX COMPLETE. SL. CALL LIGHT WITHIN REACH. NO REQUESTS AT THIS TIME.
--- NOTE | 2018-06-09 23:55 | NUR ---
MD AWARE OF PAIN IN pt's LEFT CALF. NO NEW ORDERS AT THIS TIME.
--- NOTE | 2018-06-10 00:13 | NUR ---
CALL LIGHT ON. QUESTION ANSWERED. NO FURTHER REQUESTS. CALL LIGHT WITHIN REACH.
--- NOTE | 2018-06-10 02:28 | NUR ---
MEDICATION GIVEN (SEE MAR). ASSESSMENT DONE. pt RESTING WITH EYES CLOSED. RESPIRATIONS REGULAR. DID NOT WAKE DURING ASSESSMENT. NO CHANGES IN LEFT CALF, NO REDNESS, SWELLING OR WARMTH. CALL LIGHT WITHIN REACH.
--- NOTE | 2018-06-10 05:08 | NUR ---
pt RESTED ON AND OFF DURING SHIFT. ACCU CHECKS AND SLIDING SCALE. INCONTINENT. MIREYA. IVS AND MIDLINE SL, IV ABX. PAIN CONTROLLED WITH PRN MEDS. TOLERATING DIET. ASPIRATIONS PRECAUTIONS. USES CALL LIGHT APPROPRIATELY.
--- NOTE | 2018-06-10 06:24 | NUR ---
MEDICATION GIVEN (SEE MAR). pt CHANGED WITH ASSISTANCE FROM ELLIOT HANEY. EAL. CPOX. COLTON 92 ON RA. CALL LIGHT WITHIN REACH.
--- NOTE | 2018-06-10 06:43 | NUR ---
IV ABX COMPLETE, PT CALLED BECAUSE IV PUMP WAS BEEPING. IV IS SL NOW AND PT DENIES FURTHER NEEDS. CALL LIGHT IS WITHIN REACH.
--- NOTE | 2018-06-10 07:15 | NUR ---
REPORT RECEIVED FROM LUBA ZARATE. PT AWAKEN AND STATES "I'M TIRED AND WANT TO SLEEP A LITTLE MORE." PULSE OX READS 92% ON ROOM AIR, HR = 79. BED RAILS UP. CALL LIGHT WITHIN REACH.
--- NOTE | 2018-06-10 08:15 | NUR ---
MORNING ASSESSMENT AND MEDICAITONS DUE. THIS RN TO BEDSIDE. PT RESTING WITH EYES CLOSED. AWAKENS TO MOVEMENT IN THE ROOM. PT REPORTS 7/10 HEADACHE. SEE MAR FOR MEDICATION GIVEN. COOL CLOTHER OFFERED, DECLINED. ASSESSMENT DONE. MEDICATIONS GIVEN (SEE MAR). PIV'S NOTED TO BE PAST 3 DAYS, CHARGE NURSE INFOMRED. MD WILL BE CONSULTED BEFORE REMOVING PIV'S. MID LINE ASSESSED, BRISK BLOOD RETURN NOTED. MID LINE HEPARIN LOCKED PER PROTOCOL. DEPENDS SOILED WITH BM. CHANGED, LUISITO CARE DONE, BARRIER CREAM APPLIED. PT MIREYA LIFTED UP TO CHAIR FOR BREAKFAST. LINENES CHANGED. NO ADDITIONAL REQUESTS OR COMPLAINTS AT THIS TIME. CALL LIGHT WITHIN REACH. GYROSCOPE REPAIRER AT BEDSIDE WORKING WITH PT.
--- NOTE | 2018-06-10 10:12 | NUR ---
PATIENT SITTING UP IN CHAIR. VITAL SIGNS AND I&O DONE. CALL LIGHT WITHIN REACH. NO OTHER NEEDS AT THIS TIME
--- NOTE | 2018-06-10 10:28 | NUR ---
ABX DUE. THIS RN TO BEDSIDE. PT UP TO CHAIR. PT CONTINUES TO REPORT 7/10 HEADACHE PAIN. PT STATE HE WOULD NORMALY WALK AOURND TO HELP THE HEADACHE. COOL CLOTH PROVIDED. MID LINE ASSESSED, BRISK BLOOD RETURN NOTED. HEPARIN REMOVED FROM LINE. ABX STARTED (SEE MAY). PT RESTING IN CHAIR, WATCHING TV. LIGHT DIMMED. CALL LIGHT WITIN REACH. NO ADDITIONAL REQUESTS OR COMPLAINTS AT THIS TIME.
--- NOTE | 2018-06-10 10:52 | NUR ---
THIS RN TO BEDSIDE FOR ROUNDS WITH MD. PT AWAKE AND ALERT. PT UPDATED ON PLAN OF CARE. PLANNING TO WORK WITH PHYSICAL THERAPY. CALL LIGHT WITHIN REACH.
--- NOTE | 2018-06-10 11:52 | NUR ---
PHYSICAL THERPIST TO BESIDE, THIS RN PRESENT TO ASSIST. PT COMPLETES IN CHAIR ACTIVIES. PT SLIPPING FROM CHAIR. PT TRANSFERED BY MIREYA LIFT BACK TO BED. DEPENDS SOILED, CHANGED, LUISITO CARE DONE, BARRIER CREAM APPLIED. PT ATTEMPTS TO SIT ON EDGE OF BED WITH PHYSIAL THERAPY, UNABLE TO SIT UP WITHOUT 2PA. PT TRANSFERED BACK TO CHAIR WITH MIREYA LIFT. ASSESSMENT DONE. SWELLING, CONTINUES IN EXTREMITIES. PT REPORTS NAUSEA AND PAIN OF 7/10 IN HEAD AND LEFT HIP (SEE MAR FOR MEDICATION GIVEN). MEDICATIONS GIVEN. ABX INFUSION COMPLETE, MID LINE HEPARIN LOCKED PER PROTOCOL. PIV'S NO LONGER NEEDED, DC'D PER PROTOCOL AND MD ORDER. GAUZE AND COBAN APPLIED. PT REACHES 750 ON INCENTIVE SPIROMETER. PT WATCHING TV AND EATING LUNCH. NO ADDITIONAL REQUESTS OR COMPLAINTS AT THIS TIME. CALL LIGHT WITHIN REACH.
--- NOTE | 2018-06-10 13:30 | NUR ---
THIS RN TO ROOM TO CHECK ON PT. PT BACK TO BED "FOR A NAP." PT RATES PAIN AT 6/10 AND STATES "I'M JUST FINE NOW." SUPERVISOR PARKING LOT AT BEDSIDE FOR VITALS. BED RAILS UP. CALL LIGHT WITHIN REACH.
--- NOTE | 2018-06-10 13:36 | NUR ---
PATIENT RESTING IN BED. VITAL SIGNS AND I&O DONE. CALL LIGHT WITHIN REACH. NO OTHER NEEDS AT THIS TIME
--- NOTE | 2018-06-10 13:48 | NUR ---
ABX DUE. THIS RN TO BEDSIDE. HEPARIN REMOVED FROM MID LINE, BRISK BLOOD RETURN NOTED. ABX STARTED (SEE MAR). PT RESTING IN BED. NO REQUESTS OR COMPLAINTS AT THIS TIME. BED RAILS UP. CALL LIGHT WITHIN REACH.
--- NOTE | 2018-06-10 14:19 | NUR ---
PUMP ALARMING, INFUSION AND FLUSH COMPLETE. MID LINE ASSESSED, BRISK BLOOD REUTRN NOTED. MID LINE HEPARIN LOCKED PER PROTOCOL. PT DEPENDS SOILED. DEPENDS CHANGED, LUISITO CARE DONE, BARRIER CREAM APPLIED. BED RAILS UP. CALL LIGHT WITHIN REACH.
--- NOTE | 2018-06-10 17:27 | NUR ---
PATIENT RESTING IN BED. PATIENT'S DEPEND CHANGED. TWO PERSON ASSISTING. VITAL SIGNS AND I&O DONE. ICE WATER GIVEN. CALL LIGHT WITHIN REACH. NO OTHER NEEDS AT THIS TIME
--- NOTE | 2018-06-10 17:27 | NUR ---
AFTERNOON ASSESSMENT AND MEDICATIONS DUE. PT RESTING IN BED. PT REPORTS 7/10 PAIN IN BACK. PT REPOSITIONED, SEE MAR FOR MEDICATION GIVEN. DEPENDS SOILED, DEPENDS CHAGNED, LUISITO CARE DONE, BARRIER CREAM APPLIED. ASSESSMENT DONE. EDEMA CONTINUES. FEET/LEGS NOW PALE AND COOL WITH EXCEPTION OF AREAS WITH ABRASIONS. RIGHT LEG DRESSING C/D/I. PULSE OX READS 94% WITH HR OF 80. MEDICATIONS GIVEN (SEE MAR). PT DEMONSTRATES USE OF INCENTVE SPIROMETER, REACHING 1000. PT ENCORUAGED TO GET UP TO CHAIR FOR DINNER, REFUSES AT THIS TIME STATING "I'M TOO TIRED." PT LISTING TO LEFT SIDE. PT EATING DINNER. NO ADDITIONAL REQUESTS OR COMPLAINTS AT THIS TIME. BED RAILS UP. CALL LIGHT WITHIN REACH.
--- NOTE | 2018-06-10 18:24 | NUR ---
PT HERE FOR SEPSIS R/T BILATERAL LOWER LOBE PNEUMONIA. MIREYA LIFT THIS SHIFT UP TO CHAIR. PHYSIAL THERAPY ASSESSMENT THIS SHIFT. PT UNABLE TO STAND OR SIT INDEPENDANTLY AT THIS TIME. PT LISTS TO LEFT SIDE. PT TOLERATING 60G CARBOHYDRATE LIMIT. LASIX GIVEN TODAY FOR CONTINUED EDEMA. PT VOIDING QUANTITY SUFFICIENT. FREQUENT DEPENDS CHANGES. RIGHT FOOT DIABETIC FOOT ULCER WNL THIS SHIFT, DRESSING C/D/I. PIV'S DC'D PER PROTOCOL. MID LINE HEPARIN LOCKED. INSLUINE GARGINE DOSE INCREASED THIS SHIFT. BLOOD SUGAR CHECKS AND SLIDING SCALE INSLUIN. CONTINIOUS PULSE OX. PT USES CALL LIGHT APPROPRIATLY.
--- NOTE | 2018-06-10 18:37 | NUR ---
THIS RN TO ROOM TO CHECK ON PT. PT REPORTS PAIN NOW AT 6/10 ERIC. PT STATES PAIN IS TOLERABLE AND DENIES NEED FOR ADDITIONAL PAIN MEDICAITON AT THIS TIME. PT WATCHING TV. NO ADDITIONAL REQUESTS OR COMPLAINTS AT THIS TIME. BED RAILS UP. CALL LIGHT WITHIN REACH.
--- NOTE | 2018-06-10 19:05 | NUR ---
RECEIVED REPORT FROM ELLIOT HEARD. pt RESTING WITH EYES CLOSED, RESPIRATIONS REGULAR. WHITEBOARD UPDATED.
--- NOTE | 2018-06-10 21:40 | NUR ---
ASSESSMENT AND MEDICATIONS DUE. VITAL SIGNS DONE. pt CHANGED. ASSESSMENT DONE. pt RATED PAIN 7/10 PRN MEDICATION GIVEN (SEE MAR). pt REPORTED MUSCLE PAIN IN HIS RIGHT ARM. MASSAGED ARM. pt REQUESTED ASPERCREME. MD NOTIFIED, ORDER ENTERED. MEDICATIONS GIVEN (SEE MAR). CALL LIGHT WITHIN REACH.
--- NOTE | 2018-06-10 23:03 | NUR ---
ASPERCREME APPLIED. pt REPORTED NAUSEA, ZOFRAN GIVEN (SEE MAR). LINE HEP LOCKED PER PROTOCOL. pt TURNED ON RIGHT SIDE. NO FURTHER REQUESTS AT THIS TIME. CALL LIGHT WITHIN REACH.
--- NOTE | 2018-06-11 00:06 | NUR ---
ROUNDED ON pt. AWAKE WATCHING TV. REPORT PAIN 09/27, NO CHANGE SINCE PRN PAIN MED. TURNED. CHANGED DEPENDS WITH June,. NO FURTHER REQUESTS AT THIS TIME. CALL LIGHT WITHIN REACH.
--- NOTE | 2018-06-11 00:10 | NUR ---
WITH THE HELP OF ELLIOT VERDUZCO WE CHANGED THE PT'S ATTEND INCONTINET OF URINE AND BM. BEDSIDE TABLE AND CALL LIGHT IN REACH.
--- NOTE | 2018-06-11 02:20 | NUR ---
WITH THE HELP OF ELLIOT VERDUZCO WE CHANGED PT'S ATTEND INCONTINENT OF URINE AND A BM. BEDSIDE TABLE AND CALL LIGHT IN REACH.
--- NOTE | 2018-06-11 03:07 | NUR ---
ASSESSMENT DONE. MEDICATION GIVEN (SEE MAR). INFUSION COMPLETE. MIDLINE HEP LOCK PER PROTOCOL. pt REPOSITIONED. WARM BLANKET PROVIDED. PRN PAIN MED FOR HEADACHE GIVEN (SEE MAR). NO FURTHER REQUESTS AT THIS TIME. CALL LIGHT WITHIN REACH.
--- NOTE | 2018-06-11 04:47 | NUR ---
ROUNDED ON pt. pt WATCHING TV. REFUSED PAIN MEDICATION AT THIS TIME. PROVIDED SUGAR FREE JELLO. NO FURTHER REQUESTS AT THIS TIME. CALL LIGHT WITHIN REACH.
--- NOTE | 2018-06-11 04:50 | NUR ---
pt DID NOT SLEEP DURING SHIFT. PRN PAIN MEDS X2. PRN NAUSEA MEDS X1. BM X2. INCONTINENT VOIDING, DEPENDS IN PLACE. MIREYA LIFT. ACCU CHECKS. MIDLINE HEP LOCKED, IV ABX. TOLERATING DIET. CPOX, MAINTAINING SATS>90 ON ROOM AIR. DRESSING ON RIGHT FOOT CDI. pt USES CALL LIGHT APPROPRIATELY.
--- NOTE | 2018-06-11 06:02 | NUR ---
MEDICATION DUE. INFUSION STARTED (SEE MAR). LAB IN ROOM.
--- NOTE | 2018-06-11 06:34 | NUR ---
WITH THE HELP OF CRISS VIRGEN WE CHANGED PT'S ATTEND INCONTINENT OF URINE AND STOOL. BEDSIDE TABLE AND CALL LIGHT IN REACH. FRESH ICE WATER AND WARM BLANKET GIVEN.
--- NOTE | 2018-06-11 06:37 | NUR ---
Patients breif was changed by CRSIS June and myself.
--- NOTE | 2018-06-11 06:49 | NUR ---
INFUSION COMPLETE. HEP LOCK PER PROTOCOL. NO REQUESTS AT THIS TIME. CALL LIGHT WITHIN REACH.
--- NOTE | 2018-06-11 08:05 | NUR ---
Report received from shift production supervisor RN. Patient laying in bed and talkative.
--- NOTE | 2018-06-11 08:46 | NUR ---
PATIENT RESTING IN BED, HAS REQUESTED TO LEAVE LIGHTS OFF. PATIENT STATES HE IS HAVING A BOWEL MOVEMENT AT THE MOMENT AND WILL NEED CHANGED SOON BUT HE WILL CALL WHEN HE IS READY. PATIENT HAS REFUSED TO USE BEDPAN OR BE HOYERED TO A COMMODE. PATIENT GIVEN WARM WASH CLOTH TO WASH HANDS AND FACE WITH. PATIENT CALL LIGHT IN REACH, NO OTHER NEEDS AT THIS TIME .
--- NOTE | 2018-06-11 10:22 | NUR ---
CHANGED GOWN AND SOILED ATTENDS. VERY WET WITH URINE AND HAD A SMALL LOOSE BM. LUISITO CARE DONE. NEW ATTENDS PLACED AND BARRRIER CREAM APPLIED.
--- NOTE | 2018-06-11 12:18 | NUR ---
BEDBATH COMPLETE WITH RN AND SQUADRON WORKER. PT HOYERED TO CHAIR. PT RESTING COMFORTABLY. LINEN CHANGED ON BED AND NEW GOWN ON PT.
--- NOTE | 2018-06-11 12:18 | NUR ---
continues to be up in chair, just finishing lunch. Had some nausea and I gave him PRN jeffreyfran.
--- NOTE | 2018-06-11 12:29 | NUR ---
PT HOYERED BACK TO BED WITH TWO PERSON ASSIST.
--- NOTE | 2018-06-11 13:45 | NUR ---
DR Cary in to see patient.
--- NOTE | 2018-06-11 15:48 | NUR ---
AFTER IV ABX COMPLETED, FLUSHED WITH 10ML NS FOLLOWED BY 5 ML OF 5 UNITS/ML OF HEPARIN.
--- NOTE | 2018-06-11 17:40 | NUR ---
PATIENT HAD LARGE URINARY INCONTINENCE AND BOWEL MOVEMENT, THIS HEAD OF MEASUREMENT & INSIGHTS AND ELLIOT IRIZARRY ASSISTED TO CHANGE PATIENTS ATTENDS AND GOWNS AND MIREYA PATIENT TO BEDSIDE RECLINER FOR DINNER. LINENS CHANGED. CALL LIGHT IN REACH. ELLIOT IRIZARRY PERFORMED PERICARE AND APPLIED BARRIER CREAM NEEDED TO RED AREAS. PATIENT EATING DINNER AT THIS TIME.
--- NOTE | 2018-06-11 18:28 | NUR ---
ceiling lift to get patient back to bed.
--- NOTE | 2018-06-11 19:09 | NUR ---
RECEIVED REPORT FROM ELLIOT IRIZARRY. pt IN BED RESTING. NO REQUESTS AT THIS TIME. MIDLINE HEP LOCKED POST ABX BY JUAN C. CALL LIGHT WITHIN REACH. WHITEBOARD UPDATED.
--- NOTE | 2018-06-11 21:53 | NUR ---
ROUNDED CHARGE. PATIENT DENIES ANY COMMENTS, QUESTIONS OR CONCERNS. ASSISTED LUBA RN WITH ATTEND CHANGE. PATIENT DENIES ANY NEEDS. CALL LIGHT IN REACH. LUBA RN REMAINS IN THE ROOM.
--- NOTE | 2018-06-11 21:59 | NUR ---
ASSESSMENT AND MEDICATIONS DUE. pt RESTING IN BED WATCHING. TV. DEPENDS CHANGED. ASSESSMENT DONE. JELLO PROVIDED. MEDICATIONS GIVEN (SEE MAR). CALL LIGHT WITHIN REACH. NO FURTHER REQUESTS AT THIS TIME. STATED PAIN 08/28 WILL CALL WHEN READY FOR PAIN MEDICATION.
--- NOTE | 2018-06-11 22:38 | NUR ---
INFUSION COMPLETE. MIDLINE HEP LOCKED PER PROTOCOL. NO REQUESTS AT THIS TIME. CALL LIGHT WITHIN REACH.
--- NOTE | 2018-06-12 00:20 | NUR ---
ROUNDED ON pt. RESTING WITH EYES CLOSED, RESPIRATIONS REGULAR IN RATE AND RHYTHM. CALL LIGHT WITHIN REACH.
--- NOTE | 2018-06-12 02:08 | NUR ---
MEDICATION ADMINSTERED (SEE MAR). pt RESTING WITH EYES CLOSED. CALL LIGHT WITHIN REACH. RESPIRATIONS REGULAR.
--- NOTE | 2018-06-12 06:30 | NUR ---
MRI ARRIVED TO TAKE pt. ABX INFUSION COMPLETE. HEP LOCKED PER PROTOCOL. pt MOVED TO STRETCHER. OFF FLOOR.
--- NOTE | 2018-06-12 06:31 | NUR ---
MRI TOOK HIM WE WERE TRYING TO DO VITALS, ONLY HAD TIME FOR 02, PULSE, RESPERATIONS AND WEIGHT.
--- NOTE | 2018-06-12 06:36 | NUR ---
pt RESTED DURING SHIFT. MRI THIS AM. NO PRN MEDS. BM. INCONTINENT VOIDING. DEPENDS IN PLACE. MIREYA LIFT. ACCU CHECKS, SLIDING SCALE. MIDLINE HEP LOCKED. IV ABX. TOLERATING DIET. CPOX, MAINTAINING SATS ON RA. DRESSING ON RIGHT FOOT, NO NEW DRAINAGE. pt USES CALL LIGHT APPROPRIATELY.
--- NOTE | 2018-06-12 07:16 | NUR ---
REPORT RECEIVED FROM ELLIOT VERDUZCO. PT OFF FLOOR FOR MRI SCAN.
--- NOTE | 2018-06-12 07:40 | NUR ---
RECEIVED CALL FROM DR CRUZ. PATIENT HAD REFUSED A NEW IV TO BE STARTED YOU CANT RUN CONTRAST THROUGH MIDLINE. PATIENT REFUSED NEW IV AND THE MRI TO BE COMPLETED. INFORMED DR CRUZ OF PATIENTS REFUSAL. NO NEW ORDERS. DR SUMNER TO BE IN AFTER 11 TO SEE PATIENT.
--- NOTE | 2018-06-12 09:33 | NUR ---
MORNING ASSESSMENT AND MEDICAITONS DUE. THIS RN TO BEDSIDE. PT RESTING IN BED. PT DENIES PAIN AND NAUSEA. DEPENDS CHANGED, LUISITO CARE DONE, BARRIER CREAM APPLIED. MIREYA LIFT UP TO CHAIR. PT REPORTS 6/10 BACK PAIN AFTER MOVING, PT DENIES NEED FOR MEDICAITON AT THIS TIME. PT REPORTS "FEELING SLEEPY." ASSESSMETN DONE. EDEMA IMPROVED SINCE Tuesday06/10/18. MEDICATION GIVEN. PT WATCHING TV. CALL LIGHT WITHIN REACH.
--- NOTE | 2018-06-12 10:06 | NUR ---
ABX DUE. MID LINE ASSESSED, HEPARIN REMOVED FROM LINE. BRISK BLOOD RETURN NOTED. LINE FLUSHED WITH 10ML NS. ABX STARTED (SEE MAR). PT RESTING WITH EYES CLOSED, RR = 20BPM. NO REQUESTS OR COMPLAINTS. CALL LIGHT WITHIN REACH.
--- NOTE | 2018-06-12 10:41 | NUR ---
PATIENT IN CHAIR, PT IN ROOM. FRESH WATER GIVEN. CALL LIGHT IN REACH. NO FURTHER NEEDS AT THIS TIME.
--- NOTE | 2018-06-12 11:04 | NUR ---
IV ABX INFUSION COMPLETE. MID LINE ASSESSED, WNL, BRISK BLOOD RETURN NOTED. MID LINE HEPARIN LOCKED PER PROTOCOL. SOCKS PLACED PER PT REQUEST. PT REPOSITIONED IN CHAIR. PT WATCHING TV. CALL LIGHT WITIN REACH.
--- NOTE | 2018-06-12 11:40 | NUR ---
FAXED ORDERS TO [facility] FOR PT. INCLUDING ORDERS AND PASRR. RECIEVED FAX CONFIRMATION, IN PT PACKET INCLUDED INFORMATION ON THE PT MIDLINE CATH AND THE HOW TO'S OF CARING FOR IT. ALSO UPDATED CLINICALS FOR OVER THE WEEKEND. I CALLED ANGIE AND TOLD HER SPECIFICALLY THAT THE PT NEEDS AN APPT WITH DR CRUZ NEXT WEEK AND ALSO AT DAY SURGERY IN 2 WEEKS TO HAVE THE MIDLINE CHANGED. SHE STATED UNDERSTANDING.
--- NOTE | 2018-06-12 11:50 | NUR ---
NOON ASSESSMENT AND MEDICATION DUE. THIS RN TO BEDSIDE. PT COMPLAINS OF "PAIN IN MY BUTT." PT TRANSFERED BACK TO BED, DEPENDS SOILED, DEPENDS CHAGNED. PT MIREYA LIFTED BACK TO CHAIR. CBG TAKEN. ASSESSMENT DONE. DR. CRUZ TO BEDSIDE. RIGHT HEEL WOUND ASSESSED, NEW DRESSING (IODINE SATURATED GAUZE AND KERLIX) APPLIED BY DR. CRUZ. PT EATING LUNCH. PT REPORTS NAUSEA. SEE MAR FOR MEDICAITON GIVEN. CALL LIGHT WITHIN REACH.
--- NOTE | 2018-06-12 13:41 | NUR ---
ABX DUE. THIS RN TO BEDSIDE. DEPENDS SOILED, DEPENDS CHAGNED, LUISITO CARE DONE, BARRIER CREAM APPLIED. HEPARIN REMOVED FROM MID LINE, LINE FLUSHED, BRISK BLOOD RETURN NOTED. ABX STARTED (SEE MAR). PT RESTING IN BED WATCHING TV. BED RAILS UP. CALL LIGHT WITHIN REACH.
[2018-06-12] MEDS ORDERED: CEFTRIAXONE2 G1 IV (13:43)
[2018-06-12] MEDS ORDERED: AMPICILLIN SODIU2 GM INJ (13:44)
[2018-06-12] MEDS ORDERED: HEPARIN 5010 UNIT/1 IV (13:45)
[2018-06-12] MEDS ORDERED: NORVASC10 MG PO (13:46)
[2018-06-12] MEDS ORDERED: GABAPENTIN300 MG PO (13:47)
[2018-06-12] MEDS ORDERED: OXYCODONE HCL5 MG PO (13:47)
[2018-06-12] MEDS ORDERED: DULOXETINE HCL60 MG PO (13:48)
[2018-06-12] MEDS ORDERED: BASAGLAR K100 UNIT/1 SQ (13:49)
[2018-06-12] MEDS ORDERED: ONDANSETRON ODT4 MG SL (13:50)
--- NOTE | 2018-06-12 13:54 | NUR ---
PATIENT IN BED WATCHING TV. DEPENDS CHECKED. CALL LIGHT IN REACH. NO FURTHER NEEDS AT THIS TIME.
--- NOTE | 2018-06-12 15:15 | NUR ---
TRANSPORT JOSE M ARRIVED TO ESCORT PT TO [facility]. THIS RN TO BEDSIDE. VITALS TAKEN. DEPENDS CHANGED. DISCHARGE PLAN REVIEWED WITH PT. PT VERBALIZES UNDERSTANDING OF DISCHARGE PLAN. MID LINE IS HEPARIN LOCKED AND REMAINS IN PLACE FOR IV ABX TO BE GIVEN AT [facility]. PT TRANSFERED TO WHEELCHAIR BY MIREYA LIFT ADN 3PA. TRANSFER PACKET GIVEN TO TRANFER JOSE M. PT WHEELD FROM CLINIC. REPORT CALLED TO ELLIOT ZULETA WHO STATES ALL HER QUESTIONS HAVE BEEN ANSWERED.
== END 2018-06-12 15:10 | DRG 871 ==
LOC: ED 20:34 → MS 20:35 → CCU 06-06 08:32 → MS 06-09 14:47 → CCU 06-09 14:48 → MS 06-09 20:39
PROVIDERS: ADMIT Student in an Organized Health Care Education/Training Program
DX: A41.9 Sepsis, unspecified organism (principal); J96.01 Acute respiratory failure with hypoxia; J15.8 Pneumonia due to other specified bacteria; I69.354 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cting left non-dominant side; M86.9 Osteomyelitis, unspecified; K21.9 Gastro-esophageal reflux disease without esophagitis; I10 Essential (primary) hypertension; E11.42 Type 2 diabetes mellitus with diabetic polyneuropathy; Z79.4 Long term (current) use of insulin; F11.21 Opioid dependence, in remission; E11.69 Type 2 diabetes mellitus with other specified complication
CPT/HCPCS: 31500; 31720; 36415; 36569; 36600; 51798; 71045; 73630; 73721; 80048; 80053; 80069; 80202; 81001; 82607; 82728; 82746; 82803; 83036; 83540; 83605; 83735; 83880; 84100; 84466; 85025; 85045; 86850; 86900; 86901; 87040; 87070; 87077; 87186; 87205; 87502; 93005; 93010; 94002; 94003; 94640; 94762; 94799; 96365; 96366; 96367; 97110; 97163; 99285-25; C1751; C9113; J0290; J0692; J0696; J1650; J1815; J2405; J2550; J2704; J3010; J3370; J3475; J7030; J7060; J7120

== ENCOUNTER 2019-01-06 00:09 | Emergency (ER) | payer MEDICARE, OTHER ==
[~2019-01-06] VITALS: Ht 177.8 cm; Wt 99.9 kg
--- OUTSIDE RECORDS SUMMARY | ~2019-01-06 | XMS | Clinical Summary ---
Demographics + + + | Address | [address] | | | [place] [address] | + + + | Home Phone | | + + + | Preferred Language | Unknown | + + + | Marital Status | | + + + | Worship Affiliation | 1076 | + + + | Race | Unknown | + + + | Ethnic Group | Unknown | + + + Author + + + | Author | [facility] [employer] (Historical as of | | | 11-04-18) | + + + | Organization | [facility] (Historical as of | | | 11-04-18) | + + + | Address | Unknown | + + + | Phone | Unavailable | + + + Support + + +---------+ + | Name | Relationship | Address | Phone | + + +---------+ + | Jessica Amezquita | ECON | Unknown | | + + +---------+ + Care Team Providers + +------+ + | Care Building Components Designer Name | Role | Phone | + +------+ + | Saurabh Fritz DO | PP | | + +------+ + [...] | | | + + +---------+---------+------+------+-------+ | acetaminophen | Take 650 mg by | | | 09/0 | | Activ | | (TYLENOL) 325 MG | mouth. | | | 7/20 | | e | | tablet | | | | 18 | | | + + +---------+---------+------+------+-------+ | amLODIPine | Take 5 mg by mouth. | | | 09/0 | | Activ | | (NORVASC) 5 MG | | | | 7/20 | | e | | tablet | | | | 18 | | | + + +---------+---------+------+------+-------+ | | Inhale 3 mLs into | | | 09/0 | | Activ | | ipratropium-albutero | the lungs. | | | 7/20 | | e | | l (DUO-NEB) 0.5-2.5 | | | | 18 | | | | mg/3mL | | | | | | | + + +---------+---------+------+------+-------+ | DULoxetine | Take 30 mg by mouth. | | | | | Activ | | (CYMBALTA) 30 MG | | | | | | e | | capsule | | | | | | | + + +---------+---------+------+------+-------+ | insulin lispro, | Inject into the | | | 09/0 | | Activ | | human, (HUMALOG | skin. | | | 10/07 | | e | | KWIKPEN) 100 UNIT/ML | | | | 18 | | | | injection | | | | | | | + + +---------+---------+------+------+-------+ | omeprazole | Take 20 mg by mouth. | | | | | Activ | | (PRILOSEC) 20 MG | | | | | | e | | capsule | | | | | | | + + +---------+---------+------+------+-------+ | senna (SENOKOT) | Take 8.6 mg by | | | 09/0 | | Activ | | 8.6 MG tablet | mouth. | | | 20 | | e | | | | | | 18 | | | + + +---------+---------+------+------+-------+ | trolamine | Apply topically. | | | 09/0 | | Activ | | salicylate | | | | 7/20 | | e | | (ASPERCREME) 10 % | | | | 18 | | | | cream | | | | | | | + + +---------+---------+------+------+-------+ | oxyCODONE | Take 5 mg by mouth | | | | | Activ | | (ROXICODONE) 5 MG | every 8 (eight) | | | | | e | | immediate release | hours. | | | | | | | tablet | | | | | | | + + +---------+---------+------+------+-------+ Active Problems + + + | Problem | Noted Date | + + + | Acute osteomyelitis of calcaneum, right (HCC) | 07/14/2018 | + + + | GERD (gastroesophageal reflux disease) | 05/15/2016 | + + + | Hypokalemia | 05/15/2016 | + + + | Essential hypertension, benign | 05/15/2016 | + + + | Received intravenous tissue plasminogen activator (tPA) in | 05/14/2016 | | emergency department | | + + + + + | Overview: Problem List Compensation/Benefits Specialist Utility | + + + + + | Acute left hemiparesis (HCC) | 05/14/2016 | + + + | Type 2 diabetes mellitus with hyperglycemia, with long-term | 05/14/2016 | | current use of insulin ([facility]) | | + + + | Ischemic stroke diagnosed during current admission (HCC) | 05/14/2016 | + + + | Type 2 diabetes mellitus with diabetic neuropathy, with long-term | 05/14/2016 | | current use of insulin (HCC) | | + + + | Moderate protein-calorie malnutrition (HCC) | 05/14/2016 | + + + Social [...] | Blood Pressure | 122/81 | 08/01/2018 3:50 PM PDT | + + + + | Pulse | 81 | 08/01/2018 3:50 PM PDT | + + + + | Temperature | 36.2 C (97.1 F) | 08/01/2018 3:50 PM PDT | + + + + | Respiratory Rate | 16 | 08/01/2018 3:50 PM PDT | + + + + | Oxygen Saturation | 96% | 08/01/2018 3:50 PM PDT | + + + + | Inhaled [...] Exam | | | | | | 7 | | | + + + + + | Diabetic Foot Exam | | | | | | 7 | | | + + + + + | Microalbumin | | | | | Screening | 7 | | | + + + + + | Vaccine: | | | | | Dtap/Tdap/Td (1 - | 6 | | | | Tdap) | | | | + + + + + | Colon Cancer | | | | | Screening [...] | + + + + + | Statin Therapy | | | | | (optimal intensity) | 7 | | | + + + + + | Hemoglobin A1c | | 05/15/2016 | | | | 7 | | | + + [...] + + | MEDICARE | MEDICA | [id number] | | | [address] | | | RE | | | | [place] [phone] | | | IP-OP | | | | | + +--------+ +------+ + + | VETERANS | VETERA | [id number] | | [phone] FEE SERVICES [id number] | | ADMINISTRATION | [place] | | | [phone] | | | ADMINI | | | | [place] | | | [place] | | | | [phone] | | | [place] | | | [...] | Self | [birth year] | Home: | [address] | | | al/Fam | | 7 | +- | [place] | | | carlos | | | [phone] | [phone] | + +--------+ +--------+ + + | SAROJ AMEZQUITA | Vetera | Self | [birth year] | Home: | [address] | | | ns | | 1944 | +- | [place] | | | Admini | | | [phone] | [phone] | | | strati | | | | | | | on | | | | | + +--------+ +--------+ + +
--- OUTSIDE RECORDS SUMMARY | ~2019-01-06 | XMS | Clinical Summary ---
Demographics + + + | Address | [address] | | | [place] [address] | + + + | Home Phone | | + + + | Preferred Language | Unknown | + + + | Marital Status | | + + + | Hinduism Affiliation | 1076 | + + + [...] + | Jessica Shepard | ECON | [address] | | | | | [place] | | | | | [address] | | + + + + + | Bel Solis | ECON | Unknown | | + + + + + | José Shepard | ECON | [place] | | | | | [address] | | + + + + + | Jessica Shepard | ECON | Unknown | | + + + + + Care Team Providers + +------+ + | Care Educational Resource Center Teacher Name | Role | Phone | + +------+ + | Dian Lr PROFILING MACHINE SETUP OPERATOR | PCP | | + +------+ + [...] + + + | Overview: Problem List Business Solution Analyst Utility | + + + + + | Type 2 diabetes mellitus | 05/14/2016 | + + + Encounters +--------+ + + + + | Date | Type | Specialty | Care Team | Description | +--------+ + + + + | 10/16/ | Orders Only | | Provider, | Other acute | | 2019 | | | Historical, MD | osteomyelitis, right | | | | | | ankle and foot | | | | | | (HCC) | +--------+ + + + + from [...] + +---------+ + | Alcohol Use | Drinks/We | oz/Week | Comments | | | ek | | | + + +---------+ + | No [...] + | Blood Pressure | 122/81 | 08/01/20181552 PDT | + + + + | Pulse | 81 | 08/01/20181552 PDT | + + + + | Temperature | 36.2 C (97.1 F) | 08/01/20181552 PDT | + + + + | Respiratory Rate | 16 | 08/01/2018 1553 PDT | + + + + | Oxygen Saturation | 93% | 11/26/2017 1059 PDT | + + + + | Inhaled Oxygen | - | - | | Concentration | | | + + + + | Weight | 109.4 kg (241 lb 2.9 | 11/19/2017 1745 PDT | | | oz) | | + + + + | Height | 177.8 cm (5' 10") | 11/19/20171328 PDT | + + + + | Body Mass Index | 34.61 | 11/19/2017 1329 PDT | + + + + Plan of [...] +--------+ +---------+--------+ | MEDICARE | MEDICA | [id number] | | [phone] | | Medica | | | RE | | 012-Pr | 5 | | re | | | PART A | | esent | | | | | | AND B | | | | | | + +--------+ +--------+ +---------+--------+ | VETERANS ADMIN | VETERA | [id number] | | | | Indemn | | | [place] | | 018-Pr | | | ity | | | ADMIN | | esent | | | | | | [place] | | | | | | [place] | | | | | | + +--------+ +--------+ +---------+--------+ | MEDICARE | MEDICA | [id number] | | [phone] | | Medica | [...] Person | Self | [birth year] | | [address] | | | al/Fam | | 1945 | [phone] | [employer] , [place] | | | carlos | | | 2 (Home) | [phone] | + +--------+ +--------+ + + | Reagan Shepard | Person | Self | [birth year] | | [address] | | | al/Fam | | 1945 | [phone] | [employer] , [place] | | | car[place] | | | 2 (Home) | [address] | + +--------+ +--------+ + + Advance Directives Patient has advance care planning documents, and code status on file. For more information, please contact:[facility] [place] [facility] [place] [address] + + + + + | Code Status | Date | Date | Comments | | | Activated | Inactivated | | + + + + + | Full Code | 11/21/2017 | 11/25/2017 | | | | 12:45 | 19:02 | | + + + + + + + + +---+ | | | | | + + + +---+ | Full Code | 11/21/2017 | 11/21/2017 | | | | 11:27 | 12:45 | | + + + +---+ + + + +---+ | | | | | + + + +---+ | Full Code | 11/19/2017 | 11/21/2017 | | | by default | 17:27 | 11:27 | | | - TBD | | | | + + + +---+
--- OUTSIDE RECORDS SUMMARY | ~2019-01-06 | XMS | Encounter Summary ---
Demographics + + + | Address | [address] | | | [place] [address] | + + + | Home Phone [...] + | Jessica Shepard | ECON | [address] | | | | | [place] | | | | | [address] | | + + + + + | Bel Solis | ECON | Unknown | | + + + + + | José Shepard | ECON | [place] | | | | | [address] | | + + + + + | Jessica Shepard | ECON | Unknown | | + + + + + Care Team Providers + +------+ + | Care A P Mechanic Name | Role | Phone | + +------+ + | Dian Lr CLOTH WASHER OPERATOR | PCP | | + +------+ + Encounter Details +--------+ + + + + | Date | Type | Department | Care Team | Description | +--------+ + + + + | 10/16/ | Orders Only | [facility] | Provider, | Other acute | | 2019 | | SYSTEM GENERIC OP | MD [address] | osteomyelitis, right | | | | CONVERSION [address] | [address] | ankle and foot | | | | [address] [place], [place] | [place] [address] | ([facility]) | | | | [address] | | | | | | [phone] | | | +--------+ + + + [...] of this encounter Plan of Treatment + +--------+ + + | Name | Priori | Associated Diagnoses | Order Schedule | | | ty | | | + +--------+ + + | CBC with Differential | Routin | Other acute | Expected: | | | e | osteomyelitis, right | 07/14/2018, Expires: | | | | ankle and foot | 07/14/2019 | | | | (HCC) | | + +--------+ + + | Comprehensive Metabolic Panel | Routin | Other acute | Expected: | | | e | osteomyelitis, right | 07/14/2018, Expires: | | | | ankle and foot | 07/14/2019 | | | | (HCC) | | + +--------+ + + | Sedimentation Rate | Routin | Other acute | Expected: | | | e | osteomyelitis, right | 07/14/2018, Expires: | | | | ankle and foot | 07/14/2019 | | | | (HCC) | | + +--------+ + + | C-Reactive Protein | Routin | Other acute | Expected: | | | e | osteomyelitis, right | 07/14/2018, Expires: | | | | ankle and foot | 07/14/2019 | | | | (HCC) | | + +--------+ + + | C-Reactive Protein | Routin | Other acute | Expected: | | | e | osteomyelitis, right | 08/01/2018, Expires: | | | | ankle and foot | 08/02/2019 | | | | (HCC) | | + +--------+ + + | CBC with Differential | Routin | Other acute | Expected: | | | e | osteomyelitis, right | 08/01/2018, Expires: | | | | ankle and foot | 08/02/2019 | | | | (HCC) | | + +--------+ + + | Sedimentation Rate | Routin | Other acute | Expected: | | | e | osteomyelitis, right | 08/01/2018, Expires: | | | | ankle and foot | 08/02/2019 | | | | (HCC) | | + +--------+ + + documented as of this encounter Visit Diagnoses + + | Diagnosis | + + | Other acute osteomyelitis, right ankle and foot (HCC) | + + documented in this encounter"
--- OUTSIDE RECORDS SUMMARY | ~2019-01-06 | XMS | Clinical Summary ---
Demographics + + + | Address | [address] | | | [place] [address] | + + + | Home Phone | | + + + | Preferred Language | Unknown | + + + | Marital Status | | + + + | Christian Affiliation | 1076 | + + + [...] + | Jessica Shepard | ECON | [address] | | | | | [place] | | | | | [address] | | + + + + + | Bel Solis | ECON | Unknown | | + + + + + | José Shepard | ECON | [place] | | | | | [address] | | + + + + + | Jessica Shepard | ECON | Unknown | | + + + + + Care Team Providers + +------+ + | Care Customs Compliance Specialist Name | Role | Phone | + +------+ + | Dian Lr PAID SEARCH SPECIALIST | PCP | | + +------+ + [...] + + + | Overview: Problem List Powder Worker Utility | + + + + + [...] +--------+ +---------+--------+ | MEDICARE | MEDICA | [id number] | | [phone] | | Medica | | | RE | | 012-Pr | 5 | | re | | | PART A | | esent | | | | | | AND B | | | | | | + +--------+ +--------+ +---------+--------+ | VETERANS ADMIN | VETERA | [id number] | | | | Indemn | | | [place] | | 018-Pr | | | ity | | | ADMIN | | esent | | | | | | [place] | | | | | | | [place] | | | | | | + +--------+ +--------+ +---------+--------+ | MEDICARE | MEDICA | [id number] | | [phone] | | Medica | [...] Person | Self | [birth year] | | [address] | | | al/Fam | | 1945 | [phone] | 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 For more information, please contact:[facility] [place] [facility] [place] [address] + + + + + | Code [...]
--- OUTSIDE RECORDS SUMMARY | ~2019-01-06 | XMS | Clinical Summary ---
Demographics + + + | Address | [address] | | | [place] [address] | + + + | Home Phone [...] | Author | [facility] [employer] (Historical as of | | | 11-04-18) | + + + | Organization | [facility] (Historical as of | | | [...] Team Providers + +------+ + | Care Pharmacy Consultant Name | Role | Phone | [...] + + + | Overview: Problem List Data Sme Utility | + + + + + | Acute left hemiparesis (HCC) | 05/14/2016 | + + + | Type 2 diabetes mellitus with hyperglycemia, with long-term | 05/14/2016 | | current use of insulin ([facility]) | | + + + [...] + + | MEDICARE | MEDICA | [id number] | | | [address] | | | RE | | | | [place] [phone] | | | IP-OP | | | | | + +--------+ +------+ + + | VETERANS | VETERA | [id number] | | [phone] FEE SERVICES [id number] | | ADMINISTRATION | [place] | | | [phone] | [phone] | | | ADMINI | | | | [place] | | | [place] | | | | [phone] | | | ON | | | | | + +--------+ +------+ + + + +--------+ +--------+ + + | Guarantor Name | Accoun | Relation to | Date | Phone | Billing Address | | | t Type | Patient | of | | | | | | | | | | + +--------+ +--------+ + + | SRAOJ AMEZQUITA | Person | Self [birth year] | Home: | [address] | | | al/Fam | | 7 | +- | [place] | | | carlos | | | [phone] | [phone] | + +--------+ +--------+ + + | SAROJ AMEZQUITA | Vetera | Self | [birth year] | Home: | [address] | | | ns | | 1944 | +- | [place] | | | Admini | | | [address] | [phone] | | | strati | | | | | | | on | | | | | + +--------+ +--------+ + +
--- OUTSIDE RECORDS SUMMARY | ~2019-01-06 | XMS | Encounter Summary ---
Demographics + + + | Address | [address] | | | [place] [address] | + + + | Home Phone [...] + | Jessica Shepard | ECON | [address] | | | | | [place] | | | | | [address] | | + + + + + | Bel Solis | ECON | Unknown | | + + + + + | José Shepard | ECON | [place] | | | | | [address] | | + + + + + | Jessica Shepard | ECON | Unknown | | + + + + + Care Team Providers + +------+ + | Care Business Control Manager Name | Role | Phone | + +------+ + | Dian Lr GUARD RANGE | PCP | | + +------+ + Encounter Details +--------+ + + + + | Date | Type | Department | Care Team | Description | +--------+ + + + + | 10/16/ | Orders Only | [facility] | Provider, | Other acute | | 2019 | | SYSTEM GENERIC OP | MD [address] | osteomyelitis, right | | | | CONVERSION [address] | [address] | ankle and foot | | | | [address] [address] [place], [place] | [place] [address] | ([facility]) | | | | [phone] | | | | | | [phone] | | | +--------+ + + + [...]
[~2019-01-06 00:09] MED LIST changes: +AMPICILLIN SODIU2 GM INJ; +CEFADROXIL500 MG PO; +CEFTRIAXONE2 G1 IV; +DULOXETINE HCL60 MG PO; +GABAPENTIN300 MG PO; +GLUCAGON EMERGEN1 MG INJ; +HEPARIN 5010 UNIT/1 IV; +HUMULIN R100 UNIT/1 SUB-Q; +MULTI VITAMIN1 EACH PO; +ONDANSETRON ODT4 MG SL; +OXYCONTIN15 MG PO; +TUMS200 MG PO
--- OUTSIDE RECORDS SUMMARY | 2019-01-06 00:12 | XMS ---
PreManage Notification: SAROJ AMEZQUITA Security Adviser Sales Events No recent Security Events currently on file CRITERIA MET - PDMP CARE PROVIDERS Name Unknown Shelter Facility Current PHONE: [phone] Leonard Lopez DO [facility] Current PHONE: Unknown Leonard Lopez DO Treatment Current PHONE: Unknown Jalen has no Care Guidelines for this patient. EMiguel Angel VISIT COUNT (12 MO.) [address] [facility] TOTAL 3 NOTE: Visits indicate total known visits. ED/UCC VISIT TRACKING (12 MO.) 01/06/2019 00:10 [facility] [place] TYPE: Emergency COMPLAINT: - POST OP PROBLEM 06/05/2018 20:34 [facility] [place] TYPE: Emergency COMPLAINT: - SOB 03/10/2018 23:32 [facility] [place] TYPE: Emergency COMPLAINT: - L HIP PAIN INPATIENT VISIT TRACKING (12 MO.) 06/06/2018 08:32 [facility] [place] TYPE: [facility] COMPLAINT: - SEPSIS DIAGNOSES: - Acute respiratory failure with hypoxia - Acute respiratory failure with hypoxia - Opioid dependence, in remission - Essential (primary) hypertension - Pneumonia due to other specified bacteria - Hemiplga following cerebral infrc affecting left nondom side - Opioid dependence, in remission - 1 Type 2 diabetes mellitus with other specified complication - 1 Type 2 diabetes mellitus with diabetic polyneuropathy - 1 Type 2 diabetes mellitus with other specified complication - Gastro-esophageal reflux disease without esophagitis - Pneumonia due to other specified bacteria - Osteomyelitis, unspecified - Hemiplga following cerebral infrc affecting left nondom side - Gastro-esophageal reflux disease without esophagitis - Sepsis, unspecified organism Sepsis, u - casualty underwriter (current) use of insulin - [facility] (current) use of insulin - 1 Type 2 diabetes mellitus with diabetic polyneuropathy - Essential (primary) hypertension - Osteomyelitis, unspecified 03/11/2018 08:[address] [facility] [place] TYPE: Medical Surgical COMPLAINT: - SEPSIS DIAGNOSES: - Personal history of nicotine dependence - Personal history of nicotine dependence - 1 Type 2 diabetes mellitus with other specified complication - 1 Pressure ulcer of right heel, stage - Gastro-esophageal reflux disease without esophagitis - casualty underwriter (current) use of insulin - Athscl heart disease of [place] coronary artery w/o ang pctrs - casualty underwriter (current) use of insulin - Chronic pain syndrome - Cellulitis of right lower limb - Essential (primary) hypertension - Other acute osteomyelitis, unspecified site - Athscl heart disease of [place] coronary artery w/o ang pctrs - Other acute osteomyelitis, unspecified site - Chronic pain syndrome - 1 Type 2 diabetes w diabetic peripheral angiopath w/o gangren - Scoliosis, unspecified - 1 Type 2 diabetes mellitus with foot ulcer - 1 Pressure ulcer of right heel, stage - Essential (primary) hypertension - Gastro-esophageal reflux disease without esophagitis - 1 Type 2 diabetes mellitus with foot ulcer - Scoliosis, unspecified - 1 Type 2 diabetes w diabetic peripheral angiopath w/o gangren - Cellulitis of right lower limb - Sepsis, unspecified organism Sepsis, u - 1 Type 2 diabetes mellitus with other specified complication [email or web address]
== END 2019-01-06 01:42 | disposition home or self-care (01) ==
LOC: ED 00:09
DX: Z48.01 Encounter for change or removal of surgical wound dressing (principal); E11.40 Type 2 diabetes mellitus with diabetic neuropathy, unspecified; Z87.891 Personal history of nicotine dependence; Z79.4 Long term (current) use of insulin; Z79.82 Long term (current) use of aspirin; Z79.899 Other long term (current) drug therapy
CPT/HCPCS: 99283

== ENCOUNTER 2019-03-28 09:43 | Inpatient (IN) | payer OTHER, MEDICARE ==
[~2019-03-28] VITALS: Ht 177.8 cm; Wt 113.8 kg
--- OUTSIDE RECORDS SUMMARY | ~2019-03-28 | XMS | Encounter Summary ---
Demographics + + + | Address | [address] | | | [place] [address] | + + + | Home Phone | | + + + | Preferred Language | Unknown | + + + | Marital Status | | + + + | Latter-Day Affiliation | 1076 | + + + | Race | Unknown | + + + | Ethnic Group | Unknown | + + + Author + + + | Author | [facility] | | | and [place] | + + + | Organization | [facility] | | | and [place] | + + + | Address | Unknown | + + + | Phone | Unavailable | + + + Support + + + + + | Name | Relationship | Address | Phone | + + + + + | Jessica Shepard | ECON | [address] | | | | | [place] | | | | | [address] | | + + + + + | Bel Solis | ECON | Unknown | | + + + + + | José Shepard | ECON | [place] | | | | | [address] | | + + + + + | Jessica Shepard | ECON | Unknown | | + + + + + Care Team Providers + +------+ + | Care Manager Outreach Name | Role | Phone | + +------+ + PCP | Unavailable | + +------+ + Encounter Details +--------+ + + + + | Date | Type | Department | Care Team | Description | +--------+ + + + + | 12/08/ | Hospital | [facility] | | | | 1999 | Encounter | MED CTR XRAY [address] | | | | | | [place] | | | | | | [place] [phone] | | | | | | [phone] | | | +--------+ + + + [...] Visit Diagnoses Not on filedocumented in this encounter"
--- OUTSIDE RECORDS SUMMARY | ~2019-03-28 | XMS | Encounter Summary ---
Demographics + + + | Address | [address] | | | [place] [address] | + + + | Home Phone | | + + + | Preferred Language | Unknown | + + + | Marital Status | | + + + | Tenriism Affiliation | 1076 | + + + | Race | Unknown | + + + | Ethnic Group | Unknown | + + + Author + + + | Author | [facility] | | | and [place] | + + + | Organization | [facility] | | | and [place] | + + + | Address | Unknown | + + + | Phone | Unavailable | + + + Support + + + + + | Name | Relationship | Address | Phone | + + + + + | Jessica Shepard | ECON | [address] | | | | | [place] | | | | | [address] | | + + + + + | Bel Solis | ECON | Unknown | | + + + + + | José Shepard | ECON | [place] | | | | | [address] | | + + + + + | Jessica Shepard | ECON | Unknown | | + + + + + Care Team Providers + +------+ + | Care Screen Tacker Name | Role | Phone | + +------+ + | Dian Lr NP | PCP | | + +------+ + Encounter Details +--------+ + + + + | Date | Type | Department | Care Team | Description | +--------+ + + + + | 04/05/ | Hospital | [facility] | Christina Da Silva | | | 2013 - | Encounter | [facility] | [facility] [place] [address] | | | | | [address] | [facility], | | | 04/06/ | | [place] | [place] [address] | | | 2013 | | [address] | [phone] | | | | | [phone] | | | +--------+ + + + [...] + +--------+ + + + | US ABDOMEN LIMITED | Routin | 04/06/2013 | | Results for this | | | e | 8:27 AM | | procedure are in the | | | | PST | | results section. | + +--------+ + + + | CT ABDOMEN PELVIS W | Routin | 04/06/2013 | | Results for this | | CONTRAST | e | 7:25 AM | | procedure are in the | | | | PST | | results section. | + +--------+ + + + | URINALYSIS, REFLEX | Routin | 04/05/2013 | | Results for this | | MICROSCOPIC AND/OR | e | 9:07 PM | | procedure are in the | | CULTURE | | PST | | results section. | + +--------+ + + + | CBC WITH | Routin | 04/05/2013 | | Results for this | | DIFFERENTIAL | e | 6:57 PM | | procedure are in the | | | | PST | | results section. | + +--------+ + + + | LIPASE | Routin | 04/05/2013 | | Results for this | | | e | 6:57 PM | | procedure are in the | | | | PST | | results section. | + +--------+ + + + | COMPREHENSIVE | Routin | 04/05/2013 | | Results for this | | METABOLIC PANEL | e | 6:57 PM | | procedure are in the | | | | PST | | results section. | + +--------+ + + + | CLOSTRIDIUM | Routin | 04/05/2013 | | Results for this | | DIFFICILE TOXIN | e | 6:48 PM | | procedure are in the | | | | PST | | results section. | + +--------+ + + + documented in this encounter Results Abdomen Limited (04/06/2013 8:27 AM PST) + + | Specimen | + + | | + + + + + | Narrative | Performed At | + + + | [facility] | [place] | | Department [address] [facility] [place] | [facility] | | [ rep [address]] [ rep [facility] | | st zip] Signed | - IMAGING | | | | | Patient Name: KELSILINDAVALARIEREAGAN Physician: | | | SCHR.01 : 1945 Age: 68 Sex: M Unit #: [id number] | | | Exam Date: 04/05/13 Location: ER | | | Report #: [id number] Page: | | | %(RAD)RES..mtdd.print.filter("pg") of %(RAD) | | | RES..mtdd.print.filter("tpg") | | | | | | Accession Number: [id number] | | | ULTRASOUND OF THE ABDOMEN CLINICAL HISTORY: ABDOMINAL | | | PAIN. COMPARISON: CT scan dated 04/05/2013. | | | PROTOCOL: Gore-scale and Doppler images of the abdomen. | | | FINDINGS: The gallbladder demonstrates at least three small | | | mobile stones with the largest measuring 0.3 cm. Wall thickness of | | | the gallbladder is 1.4 mm, which is normal. No sonographic Donaldson's | | | sign was observed. Common bile duct is 4.1 mm, normal. Common | | | hepatic duct was not measured. The liver demonstrates | | | increased echogenicity consistent with fat infiltration. There is | | | increased size of the liver measuring up to 19.0 cm. | | | Pancreas is normal. The right kidney is 12.2 x 4.4 x 3.8 | | | cm. Parenchyma is normal. There is no hydronephrosis. | | | There is normal color flow in the IVC, portal veins, hepatic veins | | | and splenic vein. Lateral and anterior to the liver a | | | bulge is at a site of previously failed hernia repair. There | | | appears to be fat within this lump and could potentially represent an | | | abdominal wall hernia. The bulge reduced and the pain eased by | | | rolling the patient onto the left anterior oblique position. | | | IMPRESSION: 1. MULTIPLE SMALL GALLSTONES WITH NO EVIDENCE | | | FOR CHOLECYSTITIS. 2. ENLARGED FATTY LIVER. | | | 3. LATERAL AND ANTERIOR TO THE LIVER IS APPARENT HERNIA CONTAINING | | | FAT WITHIN THE ABDOMINAL WALL. Dictated Date/Time: | | | 04/06/2013 08:27 Transcribed Date/Time: 04/06/2013 08:35 | | | Garbage Truck Driver: <<Signature on File>> | | | | | | Rico Santiago MD04/06/13 1619 <Electronically signed by Rico Santiago | | | MD> Rico Santiago MD 04/06/13 0827 Garbage Truck Driver: | | | [employer] [id number] Christina Da Silva, | | | MD | | + + + + + + + + | Performing | Address | City/State/Zipcode | Phone Number | | Organization | | | | + + + + + | [facility] | [address] | [place], [place] | [phone] | | [facility] | | [address] | | | - IMAGING | | | | + + + + + CT Abdomen Pelvis w Contrast (04/06/2013 7:25 AM PST) + + | Specimen | + + | | + + + + + | Narrative | Performed At | + + + | [facility] | [place] | | Department [address] [place] [address] | [facility] | | [ rep ct [address]] [ rep [facility] | | st zip] Signed | - IMAGING | | | | | Patient Name: BIAREAGAN Physician: | | | SCHR.01 : 1945 Age: 68 Sex: M Unit #: [id number] | | | Exam Date: 04/05/13 Location: ER | | | Report #: [id number] Page: | | | %(RAD)RES..mtdd.print.filter("pg") of %(RAD) | | | RES..mtdd.print.filter("tpg") | | | | | | Accession Number: [id number] | | | ENHANCED CT ABDOMEN AND PELVIS, 04/05/2013 AT 2053 HOURS | | | CLINICAL HISTORY: RIGHT-SIDED ABDOMINAL PAIN. | | | COMPARISON: CT abdomen and pelvis 04/21/2012. | | | TECHNIQUE: Axial images are performed through the abdomen and pelvis | | | following the uneventful intravenous administration of 100 mL | | | Isovue 370 contrast, as well as oral contrast. Coronal and | | | sagittal reformations are also performed. ABDOMEN | | | FINDINGS: Scattered band-like opacities in the imaged lung bases are | | | consistent with atelectasis/scar. Coronary arterial calcification | | | is noted. There is generalized hypoattenuation of the liver, | | | consistent with fatty infiltration. A tiny rounded, mildly | | | hyperattenuating structure is noted in the neck of the gallbladder, | | | raising suspicion for cholelithiasis, appearing similar to previous | | | CT. No obvious gallbladder wall thickening or adjacent stranding is | | | evident. There is no biliary ductal dilation. There is similar | | | enlargement of the spleen up to a long axis dimension of 15.8 cm. | | | The pancreas, adrenal glands, and kidneys are unremarkable. There | | | is no visible renal or ureteral calculus or hydronephrosis. A | | | small contrast-filled diverticulum arises from the superior, medial | | | aspect of the gastric fundus. Few left colonic diverticula are | | | present, without evidence of diverticulitis. The appendix is not | | | visualized and appears to be absent. The bowel is otherwise | | | unremarkable, without evidence of obstruction. No free air or free | | | fluid is evident. There are stable ihpnsiocuo-qd-byzmgd enlarged | | | kierra caval lymph nodes measuring up to 1.5 cm in short axis on | | | image 45. No newly enlarged nodes are evident. A tiny, | | | fat-containing umbilical hernia persists, and an additional tiny | | | fat-containing presumed incisional hernia is again visible in the | | | supraumbilical region. There is extensive aortoiliac | | | calcification. There is S-shaped thoracolumbar curvature with | | | multilevel degenerative disc disease and spondylosis. Mild wedging | | | deformity of several lower thoracic vertebral bodies persists | | | unchanged, in the setting of multilevel Schmorl's node formation. | | | Asymmetric right neural foraminal stenosis is noted in the lower | | | lumbar spine, along with moderate- appearing central canal stenosis. | | | PELVIS FINDINGS: The mostly decompressed bladder, | | | prostate, and seminal vesicles are unremarkable. No free air, free | | | fluid, pathologic lymph node enlargement, or hernia is evident. | | | Small sclerotic foci in both femoral heads as well as the | | | posterior acetabula are stable and consistent with bone islands. | | | There is a stable small rounded lucency in the anterolateral right | | | femoral head, consistent with a synovial herniation pit. | | | IMPRESSION: 1. PROBABLE CHOLELITHIASIS WITHOUT OTHER | | | EVIDENT BILIARY ABNORMALITY. CONSIDER FOLLOWUP SONOGRAPHY | | | INDICATED. 2. HYPOATTENUATION OF THE LIVER CONSISTENT | | | WITH FATTY INFILTRATION. 3. STABLE SPLENOMEGALY. | | | 4. STABLE IPAAZOMVQQ-YL-ZKNJKD ENLARGED KIERRA CAVAL LYMPH | | | NODES. 5. SCATTERED COLONIC DIVERTICULOSIS WITHOUT | | | EVIDENCE OF DIVERTICULITIS. APPENDIX IS NOT VISUALIZED AND IS | | | LIKELY ABSENT. 6. SMALL FAT-CONTAINING UMBILICAL AND | | | SUPRAUMBILICAL HERNIAS. 7. ATHEROSCLEROSIS, SCOLIOSIS, | | | AND MULTILEVEL DEGENERATIVE DISC DISEASE AND SPONDYLOSIS. | | | COMMENT: Preliminary results of the study were communicated to the ER | | | staff by the [facility] radiologist on 04/05/2013 at 2147 hours. | | | Dictated Date/Time: 04/06/2013 07:25 Transcribed | | | Date/Time: 04/06/2013 07:40 Garbage Truck Driver: | | | <<Signature on File>> | | | Tez Jacobo | | | MD Yossi04/06/13 1051 <Electronically signed by Tez Sy MD> | | | Tez Sy MD 04/06/13 0725 Garbage Truck Driver: | | | [employer] [id number] Christina Da Silva, | | | MD | | + + + + + + + + | Performing | Address | City/State/Zipcode | Phone Number | | Organization | | | | + + + + + | [facility] | [address] | [place] | [phone] | | [facility] | | [address] | | | - IMAGING | | | | + + + + + Urinalysis, Reflex Microscopic and/or Culture (04/05/2013 9:07 PM PST) + + + + + + | Component | Value | Ref Range | Performed | Pathologist | | | | | At | Signature | + + + + + + | COLLECTION | VOID | | [facility] | | | [facility] | | | [facility] | | | | | | MEDICAL | | | | | | CENTER - | | | | | | LABORATORY | | + + + + + + | Color, | YELLOW | | [facility] | | | Urine | | | [facility] | | | | | | MEDICAL | | | | | | CENTER - | | | | | | LABORATORY | | + + + + + + | Clarity | CLEAR | | [facility] | | | | | | [facility] | | | | | | MEDICAL | | | | | | CENTER - | | | | | | LABORATORY | | + + + + + + | Glucose, | >=1000 | NEGATIVE mg/dL | [facility] | | | Urine | | | [facility] | | | | | | MEDICAL | | | | | | CENTER - | | | | | | LABORATORY | | + + + + + + | Bilirubin, | NEGATIVE | NEGATIVE | [facility] | | | Urine | | | [facility] | | | | | | MEDICAL | | | | | | CENTER - | | | | | | LABORATORY | | + + + + + + | Ketones, | NEGATIVE | NEGATIVE | [facility] | | | Urine | | | [facility] | | | | | | MEDICAL | | | | | | CENTER - | | | | | | LABORATORY | | + + + + + + | Specific | 1.010 | 1.001 - 1.030 | [facility] | | | [place] | | | [facility] | | | | | | MEDICAL | | | | | | CENTER - | | | | | | LABORATORY | | + + + + + + | Blood, | NEGATIVE | NEGATIVE | [facility] | | | Urine | | | [facility] | | | | | | MEDICAL | | | | | | CENTER - | | | | | | LABORATORY | | + + + + + + | pH, Urine | 7.0 | 5.0 - 8.0 | [facility] | | | | | | [facility] | | | | | | MEDICAL | | | | | | CENTER - | | | | | | LABORATORY | | + + + + + + | Protein, | NEGATIVE | NEGATIVE mg/dL | [facility] | | | Urine | | | [facility] | | | | | | MEDICAL | | | | | | CENTER - | | | | | | LABORATORY | | + + + + + + | Urobilinoge | NORMAL | NORMAL EU/dL | [facility] | | | n, Urine | | | [facility] | | | | | | MEDICAL | | | | | | CENTER - | | | | | | LABORATORY | | + + + + + + | Nitrite, | NEGATIVE | NEGATIVE | [facility] | | | Urine | | | [facility] | | | | | | MEDICAL | | | | | | CENTER - | | | | | | LABORATORY | | + + + + + + | Leukocyte | NEGATIVE | NEGATIVE | [facility] | | | Esterase, | | | [facility] | | | Urine | | | MEDICAL | | | | | | CENTER - | | | | | | LABORATORY | | + + + + + + | WBC UA | NONE | 0 - 5 /hpf | [facility] | | | | | | [facility] | | | | | | MEDICAL | | | | | | CENTER - | | | | | | LABORATORY | | + + + + + + | RBC UA | NONE | 0 - 3 /hpf | [facility] | | | | | | [facility] | | | | | | MEDICAL | | | | | | CENTER - | | | | | | LABORATORY | | + + + + + + | SQUAMOUS | NONE | FEW /hpf | [facility] | | | EPITHELIAL | | | [facility] | | | UA | | | MEDICAL | | | | | | CENTER - | | | | | | LABORATORY | | + + + + + + | BACTERIA UA | NONE | NONE /hpf | [facility] | | | | | | [facility] | | | | | | MEDICAL | | | | | | CENTER - | | | | | | LABORATORY | | + + + + + + | Culture | NO | | [facility] | | | Indicated | | | [facility] | | | | | | MEDICAL | | | | | | CENTER - | | | | | | LABORATORY | | + + + + + + + + | Specimen | + + | | + + + + + + + | Performing | Address | City/State/Zipcode | Phone Number | | Organization | | | | + + + + + | [facility] | [address] | [place] | [phone] | | [facility] | | [address] | | | - LABORATORY | | | | + + + + + | [facility] | [address] | [place] | | | [facility] | | [address] | | | - LABORATORY | | | | + + + + + CBC with Differential (04/05/2013 6:57 PM PST) + + + + + + | Component | Value | Ref Range | Performed | Pathologist | | | | | At | Signature | + + + + + + | MANUAL | NO | | [facility] | | | DIFFERENTIA | | | [facility] | | | L ? | | | MEDICAL | | | | | | CENTER - | | | | | | LABORATORY | | + + + + + + | WBC | 10.3 | 4.0 - 11.0 K/uL | [facility] | | | | | | [facility] | | | | | | MEDICAL | | | | | | CENTER - | | | | | | LABORATORY | | + + + + + + | RBC | 5.36 | 4.30 - 5.70 | [facility] | | | | | M/uL | [facility] | | | | | | MEDICAL | | | | | | CENTER - | | | | | | LABORATORY | | + + + + + + | Hemoglobin | 13.0 (L) | 13.5 - 18.0 | [facility] | | | | | gm/dL | [facility] | | | | | | MEDICAL | | | | | | CENTER - | | | | | | LABORATORY | | + + + + + + | Hematocrit | 40.3 | 40.0 - 51.0 % | [facility] | | | | | | [facility] | | | | | | MEDICAL | | | | | | CENTER - | | | | | | LABORATORY | | + + + + + + | MCV | 75.1 (L) | 83.0 - 101.0 fL | [facility] | | | | | | [facility] | | | | | | MEDICAL | | | | | | CENTER - | | | | | | LABORATORY | | + + + + + + | MCH | 24.2 (L) | 28.0 - 35.0 pg | [facility] | | | | | | [facility] | | | | | | MEDICAL | | | | | | CENTER - | | | | | | LABORATORY | | + + + + + + | MCHC | 32.3 | 32.0 - 36.0 | [facility] | | | | | g/dL | [facility] | | | | | | MEDICAL | | | | | | CENTER - | | | | | | LABORATORY | | + + + + + + | RDW-CV | 15.6 (H) | <15.0 % | [facility] | | | | | | [facility] | | | | | | MEDICAL | | | | | | CENTER - | | | | | | LABORATORY | | + + + + + + | Platelet | 324 | 140 - 440 K/uL | [facility] | | | Count | | | [facility] | | | | | | MEDICAL | | | | | | CENTER - | | | | | | LABORATORY | | + + + + + + | % | 64.9 | 45 - 82 % | [facility] | | | Neutrophils | | | [facility] | | | | | | MEDICAL | | | | | | CENTER - | | | | | | LABORATORY | | + + + + + + | % | 25.6 | 20 - 45 % | [facility] | | | Lymphocytes | | | [facility] | | | | | | MEDICAL | | | | | | CENTER - | | | | | | LABORATORY | | + + + + + + | % Monocytes | 9.5 | 4 - 12 % | [facility] | | | | | | [facility] | | | | | | MEDICAL | | | | | | CENTER - | | | | | | LABORATORY | | + + + + + + | Absolute | 6.7 | 1.8 - 8.5 K/uL | [facility] | | | Neutrophils | | | [facility] | | | | | | MEDICAL | | | | | | CENTER - | | | | | | LABORATORY | | + + + + + + | Absolute | 2.6 | 0.6 - 3.2 K/uL | [facility] | | | Lymphocytes | | | [facility] | | | | | | MEDICAL | | | | | | CENTER - | | | | | | LABORATORY | | + + + + + + | Absolute | 1.0 | 0.0 - 1.0 K/uL | [facility] | | | Monocytes | | | [facility] | | | | | | MEDICAL | | | | | | CENTER - | | | | | | LABORATORY | | + + + + + + + + | Specimen | + + | | + + + + + + + | Performing | Address | City/State/Zipcode | Phone Number | | Organization | | | | + + + + + | [facility] | [address] | [place], [place] | [phone] | | [facility] | | [address] | | | - LABORATORY | | | | + + + + + | [facility] | [address] | [place], [place] | | | [facility] | | [address] | | | - LABORATORY | | | | + + + + + Comprehensive Metabolic Panel (04/05/2013 6:57 PM PST) + + + + + + | Component | Value | Ref Range | Performed | Pathologist | | | | | At | Signature | + + + + + + | Glucose | 421 (H) | 70 - 109 mg/dL | [facility] | | | | | | [facility] | | | | | | MEDICAL | | | | | | CENTER - | | | | | | LABORATORY | | + + + + + + | Calcium | 8.5 | 8.3 - 10.5 | [facility] | | | | | mg/dL | [facility] | | | | | | MEDICAL | | | | | | CENTER - | | | | | | LABORATORY | | + + + + + + | Alkaline | 68 | 40 - 110 IU/L | [facility] | | | Phosphatase | | | [facility] | | | | | | MEDICAL | | | | | | CENTER - | | | | | | LABORATORY | | + + + + + + | AST | 32 | 10 - 42 IU/L | [facility] | | | | | | [facility] | | | | | | MEDICAL | | | | | | CENTER - | | | | | | LABORATORY | | + + + + + + | ALT | 22 | 6 - 45 IU/L | [facility] | | | | | | [facility] | | | | | | MEDICAL | | | | | | CENTER - | | | | | | LABORATORY | | + + + + + + | Bilirubin | 1.1 (H) | 0.2 - 1.0 mg/dL | [facility] | | | Total | | | [facility] | | | | | | MEDICAL | | | | | | CENTER - | | | | | | LABORATORY | | + + + + + + | Total | 6.5 | 6.0 - 7.8 gm/dL | [facility] | | | Protein | | | [facility] | | | | | | MEDICAL | | | | | | CENTER - | | | | | | LABORATORY | | + + + + + + | Albumin | 3.7 | 3.2 - 5.0 gm/dL | [facility] | | | | | | [facility] | | | | | | MEDICAL | | | | | | CENTER - | | | | | | LABORATORY | | + + + + + + | BUN | 16 | 7 - 18 mg/dL | [facility] | | | | | | [facility] | | | | | | MEDICAL | | | | | | CENTER - | | | | | | LABORATORY | | + + + + + + | Creatinine | 1.08 | 0.60 - 1.30 | [facility] | | | | | mg/dL | [facility] | | | | | | MEDICAL | | | | | | CENTER - | | | | | | LABORATORY | | + + + + + + | Estimated | >60Comment: For | >60 mL/min/A | [facility] | | | GFR | -Americans, | | . [facility] | | | | please multiply the | | MEDICAL | | | | result by 1.210 | | CENTER - | | | | This is an estimated | | LABORATORY | | | | GFR and is based on a | | | | | | standard adult | | | | | | body mass (A=1.73m2) and | | | | | | serum creatinine | | | | + + + + + + | BUN/Creatin | 14.8 | 12 - 20 | [facility] | | | ine Ratio | | | [facility] | | | | | | MEDICAL | | | | | | CENTER - | | | | | | LABORATORY | | + + + + + + | Na | 130 (L) | 136 - 149 mEq/L | [facility] | | | | | | [facility] | | | | | | MEDICAL | | | | | | CENTER - | | | | | | LABORATORY | | + + + + + + | K | 4.5 | 3.5 - 5.1 mEq/l | [facility] | | | | | | [facility] | | | | | | MEDICAL | | | | | | CENTER - | | | | | | LABORATORY | | + + + + + + | Cl | 97 (L) | 98 - 109 mEq/l | [facility] | | | | | | [facility] | | | | | | MEDICAL | | | | | | CENTER - | | | | | | LABORATORY | | + + + + + + | CO2 | 23 (L) | 24 - 31 mEq/L | [facility] | | | | | | [facility] | | | | | | MEDICAL | | | | | | CENTER - | | | | | | LABORATORY | | + + + + + + | Anion Gap | 14.5 | 6.0 - 17.0 | [facility] | | | | | | [facility] | | | | | | MEDICAL | | | | | | CENTER - | | | | | | LABORATORY | | + + + + + + + + | Specimen | + + | | + + + + + + + | Performing | Address | City/State/Zipcode | Phone Number | | Organization | | | | + + + + + | [facility] | [address] | [place], [place] | [phone] | | [facility] | | [address] | | | - LABORATORY | | | | + + + + + | [facility] | [address] | [place] | | | [facility] | | [address] | | | - LABORATORY | | | | + + + + + Lipase (04/05/2013 6:57 PM PST) + +-------+ + + + | Component | Value | Ref Range | Performed | Pathologist | | | | | At | Signature | + +-------+ + + + | Lipase | 43 | 0 - 60 U/L | [facility] | | | | | | [facility] | | | | | | MEDICAL | | | | | | CENTER - | | | | | | LABORATORY | | + +-------+ + + + + + | Specimen | + + | | + + + + + + + | Performing | Address | City/State/Zipcode | Phone Number | | Organization | | | | + + + + + | [facility] | [address] | [place], [place] | [phone] | | [facility] | | [address] | | | - LABORATORY | | | | + + + + + | [facility] | [address] | [place], [place] | | | [facility] | | [address] | | | - LABORATORY | | | | + + + + + Clostridium difficile Toxin (04/05/2013 6:48 PM PST) + + + +-- + + | Component | Value | Ref Range | P erformed | Pathologist | | | | | A t | Signature | + + + +-- + + | C difficile | No Clostridium Difficile | | P [facility] | | | Toxins | toxin detected. Up to 3 | | [facility] | | | A+B, EIA | stool specimens (not | | M EDICAL | | | | more than 1 per day) | | C ENTER - | | | | tested per patient. | | L ABORATORY | | | | NEGATIVE Comment: PHONED | | | | | | REPORT TO [facility] | | | | | | 04/05/13 @ 192 by | | | | | | SHANE | | | | | | Comment: PHONED REPORT TO [facility] 04/05/13 @ 1919 by SHANE | | | | + + + +-- + + + + | Specimen | + + | | + + + + + + + | Performing | Address | City/State/Zipcode | Phone Number | | Organization | | | | + + + + + | [facility] | [address] | [place] | [phone] | | [facility] | | [address] | | | - LABORATORY | | | | + + + + + | [facility] | [address] | [place] | | | [facility] | | [address] | | | - LABORATORY | | | | + + + + + documented in this encounter Visit Diagnoses Not on filedocumented in this encounter
--- OUTSIDE RECORDS SUMMARY | ~2019-03-28 | XMS | Encounter Summary ---
Demographics + + + | Address | [address] | | | [place] [address] | + + + | Home Phone | | + + + | Preferred Language | Unknown | + + + | Marital Status | | + + + | Caodaism Affiliation | 1076 | + + + | Race | Unknown | + + + | Ethnic Group | Unknown | + + + Author + + + | Author | [facility] | | | and [place] | + + + | Organization | [facility] | | | and [place] | + + + | Address | Unknown | + + + | Phone | Unavailable | + + + Support + + + + + | Name | Relationship | Address | Phone | + + + + + | Jessica Shepard | ECON | [address] | | | | | [place] | | | | | [address] | | + + + + + | Bel Solis | ECON | Unknown | | + + + + + | José Shepard | ECON | [place] | | | | | [phone] | | + + + + + | Jessica Shepard | ECON | Unknown | | + + + + + Care Team Providers + +------+ + | Care Restaurant Assistant Manager Name | Role | Phone | + +------+ + PCP | Unavailable | + +------+ + Encounter Details +--------+ + + + + | Date | Type | Department | Care Team | Description | +--------+ + + + + | 12/08/ | Hospital | [facility] | | | | 1999 | Encounter | [facility] [address] | | | | | | [address] | | | | | | [place] [id number] | | | | | | [phone] | | | +--------+ + + + [...]
--- OUTSIDE RECORDS SUMMARY | ~2019-03-28 | XMS | Clinical Summary ---
Demographics + + + | Address | [address] | | | [place] [address] | + + + | Home Phone | | + + + | Preferred Language | Unknown | + + + | Marital Status | | + + + | Muslim Affiliation | 1076 | + + + | Race | Unknown | + + + | Ethnic Group | Unknown | + + + Author + + + | Author | [facility] | | | and [place] | + + + | Organization | [facility] | | | and [place] | + + + | Address | Unknown | + + + | Phone | Unavailable | + + + Support + + + + + | Name | Relationship | Address | Phone | + + + + + | Jessica Shepard | ECON | [address] | | | | | [place] | | | | | [address] | | + + + + + | Bel Solis | ECON | Unknown | | + + + + + | José Shepard | ECON | [place] | | | | | [address] | | + + + + + | Jessica Shepard | ECON | Unknown | | + + + + + Care Team Providers + +------+ + | Care Hoop Rolls Operator Name | Role | Phone | + +------+ + | Dian Lr RADIOLOGY ASSISTANT | PCP | | + +------+ + Allergies No Known Allergies Medications + + + +---------+------+------+-------+ | Medication | Sig | Dispensed | Refills | Star | End | Statu | | | | | | t | Date | s | | | | | | Date | | | + + + +---------+------+------+-------+ | docusate-senna | Take 1 tablet by | | 0 | | | Activ | | (SENOKOT-S) 50-8.6 | mouth Daily. | | | | | e | | mg per tablet | | | | | | | + + + +---------+------+------+-------+ | gabapentin | Take 800 mg by mouth | | 0 | | | Activ | | (NEURONTIN) 400 mg | 3 times daily. | | | | | e | | capsule | | | | | | | + + + +---------+------+------+-------+ | DULoxetine | Take 30 mg by mouth | | 0 | | | Activ | | (CYMBALTA) [address] | 2 times daily. | | | | | e | | capsule | | | | | | | + + + +---------+------+------+-------+ | atorvaSTATin | Take 40 mg by mouth | | 0 | | | Activ | | (LIPITOR) 40 mg | nightly. | | | | | e | | tablet | | | | | | | + + + +---------+------+------+-------+ | omeprazole | Take 20 mg by mouth | | 0 | | | Activ | | (PRILOSEC) 20 mg | every morning | | | | | e | | capsule | (before breakfast). | | | | | | + + + +---------+------+------+-------+ | aspirin 325 mg | Take 325 mg by mouth | | 0 | | | Activ | | tablet | Daily. | | | | | e | + + + +---------+------+------+-------+ | sAXagliptin | Take 5 mg by mouth | | 0 | | | Activ | | (ONGLYZA) 5 mg TABS | Daily. | | | | | e | | tablet | | | | | | | + + + +---------+------+------+-------+ | insulin glargine | Inject 30 Units | | 0 | | | Activ | | (LANTUS) 100 | under the skin 2 | | | | | e | | units/mL injection | times daily. | | | | | | | (vial) | | | | | | | + + + +---------+------+------+-------+ | | Take 1 tablet by | 25 | 0 | 09/0 | | Activ | | HYDROcodone-acetamin | mouth 4 times daily | tablet | | 7/20 | | e | | ophen (NORCO) 10-325 | as needed for Pain. | | | 18 | | | | mg per tablet | | | | | | | + + + +---------+------+------+-------+ | acetaminophen | Take 2 tablets by | 120 | 0 | 09/0 | | Activ | | (TYLENOL) 325 mg | mouth every 4 hours | tablet | | 7/20 | | e | | tablet | as needed for Pain | | | 18 | | | | | (or fever >= 38.6 C | | | | | | | | (101.5 F)). | | | | | | + + + +---------+------+------+-------+ | | Take 3 mLs by | 360 mL | 0 | 09/0 | | Activ | | albuterol-ipratropiu | nebulization every 4 | | | 7/20 | | e | | m 2.5-0.5 mg/3 mL | hours as needed. | | | 18 | | | | SOLN | | | | | | | + + + +---------+------+------+-------+ | amLODIPine | Take 1 tablet by | 30 | 1 | 09/0 | | Activ | | (NORVASC) 5 mg | mouth Daily. | tablet | | 7/20 | | e | | tablet | | | | 18 | | | + + + +---------+------+------+-------+ | docusate sodium | Take 200 mg by mouth | 30 | 0 | 09/0 | | Activ | | (COLACE) 100 MG | Daily. | capsule | | 8/20 | | e | | capsule | | | | 18 | | | + + + +---------+------+------+-------+ | senna (SENOKOT) | Take 1 tablet by | 120 | 0 | 09/0 | | Activ | | 8.6 mg tablet | mouth Twice daily | tablet | | 7/20 | | e | | | as needed for | | | 18 | | | | | Constipation. | | | | | | + + + +---------+------+------+-------+ | trolamine | Apply topically | | 0 | 09/0 | | Activ | | salicylate | every 4 hours as | | | 7/20 | | e | | (ASPERCREME) 10% | needed for Pain. | | | 18 | | | | cream | | | | | | | + + + +---------+------+------+-------+ | insulin lispro | Inject 0-12 Units | 3 mL | 0 | 09/0 | | Activ | | (HUMALOG KWIKPEN) | under the skin 4 | | | 7/20 | | e | | 100 units/mL | times daily (with | | | 18 | | | | injection (pen) | [...] units | | | | | | + + + +---------+------+------+-------+ | senna (SENNA) 8.6 | Take 8.6 mg by | | 0 | 09/0 | | Activ | | mg tablet | mouth. | | | 7/20 | | e | | | | | | 18 | | | + + + +---------+------+------+-------+ | acetaminophen | Take 650 mg by | | 0 | 09/0 | | Activ | | (TYLENOL) 325 mg | mouth. | | | 7/20 | | e | | tablet | | | | 18 | | | + + + +---------+------+------+-------+ | oxyCODONE | Take 5 mg by mouth | | 0 | | | Activ | | (ROXICODONE) 5 mg | every 8 (eight) | | | | | e | | tablet | hours. | | | | | | + + + +---------+------+------+-------+ Active Problems + + + | Problem | Noted Date | + + + | Acute osteomyelitis of calcaneum, right | 07/14/2018 | + + + | Essential hypertension | 11/25/2017 | + + + | Insulin dependent diabetes mellitus | 11/22/2017 | + + + | Peripheral vascular disease | 11/22/2017 | + + + | Osteomyelitis of right foot | 11/22/2017 | + + + | Class 1 obesity with serious comorbidity in adult | 11/22/2017 | + + + | Sepsis | 11/19/2017 | + + + | Hypokalemia | 05/15/2016 | + + + | GERD (gastroesophageal reflux disease) | 05/15/2016 | + + + | Acute left hemiparesis | 05/14/2016 | + + + | Ischemic stroke diagnosed during current admission | 05/14/2016 | + + + | Moderate protein-calorie malnutrition | 05/14/2016 | + + + | Received intravenous tissue plasminogen activator (tPA) in | 05/14/2016 | | emergency department | | + + + + + | Overview: Problem List Mix [employer] Utility | + + + + + | Type 2 diabetes mellitus | 05/14/2016 | + + + Social History + +-------+ [...] recent travel history available. | + + Last Filed Vital Signs + + + + + | Vital Sign | Reading | Time Taken | Comments | + + + + + | Blood Pressure | 122/81 | 08/01/2018 3:53 PM | | | | | PDT | | + + + + + | Pulse | 81 | 08/01/2018 3:53 PM | | | | | PDT | | + + + + + | Temperature | 36.2 C (97.1 F) | 08/01/2018 3:53 PM | | | | | PDT | | + + + + + | Respiratory Rate | 16 | 08/01/2018 3:53 PM | | | | | PDT | | + + + + + | Oxygen Saturation | 93% | 11/26/2017 10:59 AM | | | | | PDT | | + + + + + | Inhaled Oxygen | - | - | | | Concentration | | | | + + + + + | Weight | 109.4 kg (241 lb 2.9 | 11/19/2017 5:45 PM | | | | oz) | PDT | | + + + + + | Height | 177.8 cm (5' 10") | 11/19/2017 1:29 PM | | | | | PDT | | + + + + + | Body Mass Index | 34.61 | 11/19/2017 1:29 PM | | | | | PDT | | + + + + + Plan of Treatment + + + + + | Health Maintenance | Due Date | Last Done | Comments | + + + + + | Hepatitis C | | | | | Screening | 7 | | | + + + + + | Vaccine: | | | | | Dtap/Tdap/Td (1 - | 8 | | | | Tdap) | | | | + + + + + | Diabetic Eye Exam | | | | | | 5 | | | + + + + + | Diabetic Foot Exam | | | | | | 5 | | | + + + + + | Colorectal Cancer | | | | | Screening | 7 | | | | (Colonoscopy) | | | | + + + + + | Vaccine: Zoster (1 | | | | | of 2) | 7 | | | + + + + + | Vaccine: | | | | | Pneumococcal 65+ (1 | 2 | | | | of 2 - PCV13) | | | | + + + + + | Hemoglobin A1c | | 05/15/2016 | | | Screening | 7 | | | + + + + + | Adult Annual | | | | | Wellness Visit | 8 | | | + + + + + | Microalbumin | | | | | Screening | 8 | | | + + + + + | Vaccine: Influenza | | | | | (#1) | 9 | | | + + + + + | AAA Screening | Completed | 04/06/2013, 04/22/2012 | | + + + + + Results Not on filefrom Last 3 Months Insurance + +--------+ +--------+ +---------+--------+ | Payer | Benefi | Subscriber | Effect | Phone | Address | Type | | | t Plan | ID | erum | | | | | | / | | Dates | | | | | | Group | | | | | | + +--------+ +--------+ +---------+--------+ | MEDICARE | MEDICA | [id number] | | [phone] | | Medica | | | RE | | 012-Pr | 5 | | re | | | PART A | | esent | | | | | | AND B | | | | | | + +--------+ +--------+ +---------+--------+ | VETERANS ADMIN | VETERA | [id number] | | | | Indemn | | | NS | | 018-Pr | | | ity | | | ADMIN | | esent | | | | | | [place] | | | | | | | | [place] | | | | | | + +--------+ +--------+ +---------+--------+ | MEDICARE | MEDICA | [id number] | | [phone] | | Medica | | | RE | | 012-Pr | 5 | | re | | | PART A | | esent | | | | | | AND B | | | | | | + +--------+ +--------+ +---------+--------+ + +--------+ +--------+ + + | Guarantor Name | Accoun | Relation to | Date | Phone | Billing Address | | | t Type | Patient | of | | | | | | | | | | + +--------+ +--------+ + + | Reagan Shepard | Person | Self [birth year] | [address] | | | al/Fam | | 1945 | [phone] | [place] | | | carlos | | | 2 (Home) | [phone] | + +--------+ +--------+ + + | Reagan Shepard | Person | Self [birth year] | [address] | | | al/Fam | | 1945 | [phone] | [place], [place] | | | [place] | | | 2 (Home) | [phone] | + +--------+ +--------+ + + Advance Directives + + + + + | Type | Date Recorded | Patient | Explanation | | | | Helper Maintenance Cleaning | | + + + + + | Power of | | | | | Radio Interference Investigator | | | | + + + + + | Advance | 11/19/2017 1:54 | | | | Directive | PM | | | + + + + + + + + + + | Code Status | Date | Date | Comments | | | Activated | Inactivated | | + + + + + | Full Code | 11/21/2017 | 11/25/2017 | | | | 12:45 PM | 7:02 PM | | + + + + + + + + +---+ | | | | | + + + +---+ | Full Code | 11/21/2017 | 11/21/2017 | | | | 11:27 AM | 12:45 PM | | + + + +---+ + + + +---+ | | | | | + + + +---+ | Full Code | 11/19/2017 | 11/21/2017 | | | by default | 5:27 PM | 11:27 AM | | | - TBD | | | | + + + +---+
--- OUTSIDE RECORDS SUMMARY | ~2019-03-28 | XMS | Encounter Summary ---
Demographics + + + | Address | [address] | | | [place] [address] | + + + | Home Phone | | + + + | Preferred Language | Unknown | + + + | Marital Status | | + + + | Restoration Affiliation | 1076 | + + + | Race | Unknown | + + + | Ethnic Group | Unknown | + + + Author + + + | Author | [facility] | | | and [place] | + + + | Organization | [facility] | | | and [place] | + + + | Address | Unknown | + + + | Phone | Unavailable | + + + Support + + + + + | Name | Relationship | Address | Phone | + + + + + | Jessica Shepard | ECON | [address] | | | | | [place] | | | | | [address] | | + + + + + | Bel Solis | ECON | Unknown | | + + + + + | José Shepard | ECON | [place] | | | | | [address] | | + + + + + | Jessica Shepard | ECON | Unknown | | + + + + + Care Team Providers + +------+ + | Care Porcelain Enamel Sprayer Name | Role | Phone | + +------+ + | Dian Lr NP | PCP | | + +------+ + Encounter Details +--------+ + + + + | Date | Type | Department | Care Team | Description | +--------+ + + + + | 07/31/ | Orders Only | [facility] | Conversion | | | 2019 | | INFECTIOUS DISEASE | Transaction, | | | | | [address] | Provider Unknown | | | | | [place] | [phone] | | | | | [address] | | | | | | [phone] | | | +--------+ + + + [...] | EXTERNAL LAB: CBC | Routin | 07/31/2018 | | Results for this | | | e | 12:00 AM | | procedure are in the | | | | PDT | | results section. | + +--------+ + + + | SEDIMENTATION RATE, | Routin | 07/31/2018 | | Results for this | | AUTOMATED | e | 12:00 AM | | procedure are in the | | | | PDT | | results section. | + +--------+ + + + | C-REACTIVE PROTEIN | Routin | 07/31/2018 | | Results for this | | | e | 12:00 AM | | procedure are in the | | | | PDT | | results section. | + +--------+ + + + | COMPREHENSIVE | Routin | 07/31/2018 | | Results for this | | METABOLIC PANEL | e | 12:00 AM | | procedure are in the | | | | PDT | | results section. | + +--------+ + + + documented in this encounter Results Sedimentation rate, automated (07/31/2018 12:00 AM PDT) + +--------+ + + + | Component | Value | Ref Range | Performed | Pathologist | | | | | At | Signature | + +--------+ + + + | Sed Rate | 33 (A) | 0 - 15 | EXTERNAL | | | | | | LAB | | + +--------+ + + + + + | Specimen | + + | Blood specimen | | (specimen) | + + + +---------+ + + | Performing | Address | City/State/Zipcode | Phone Number | | Organization | | | | + +---------+ + + | EXTERNAL LAB | | | | + +---------+ + + External Lab: CBC (07/31/2018 12:00 AM PDT) + + + + + + | Component | Value | Ref Range | Performed | Pathologist | | | | | At | Signature | + + + + + + | WBC | 14.5 | 4.5 10 | EXTERNAL | | | | | | LAB | | + + + + + + | RED CELL | 5.27 | 10 | EXTERNAL | | | COUNT | | | LAB | | + + + + + + | Hgb | 11.1 (A) | 13.5 - 18.0 | EXTERNAL | | | | | g/dL | LAB | | + + + + + + | Hematocrit, | 35.4 (A) | 41 - 50 % | EXTERNAL | | | POC | | | LAB | | + + + + + + | MCV | 67.1 (A) | 81 - 99 fL | EXTERNAL | | | | | | LAB | | + + + + + + | MCH | 21 (A) | 27 - 33 pg | EXTERNAL | | | | | | LAB | | + + + + + + | MCHC | 31 | g/dL | EXTERNAL | | | | | | LAB | | + + + + + + | Platelet | 316 | K/ L | EXTERNAL | | | Count | | | LAB | | | Plasma | | | | | + + + + + + | RDW-CV | 27.4 (A) | 10.5 - 15.0 % | [...] + + + | % Segmented | 66.3 | % | EXTERNAL | | | | | | LAB | | | Neutrophils | | | | | + + + + + + | % | 16.2 (A) | 24 - 44 % | EXTERNAL | | | Lymphocytes | | | LAB | | + + + + + + | % Monocytes | 8.6 | % | EXTERNAL | | | | | | LAB | | + + + + + + | % | 7.5 (A) | 0 - 6 % | EXTERNAL | | | Eosinophils | | | LAB | | + + + + + + | % Basophils | 1.4 | % | EXTERNAL | | | [...] | + +---------+ + + C-Reactive Protein (07/31/2018 12:00 AM PDT) + +---------+ + + + | Component | Value | Ref Range | Performed | Pathologist | | | | | At | Signature | + +---------+ + + + | CRP | 7.4 (A) | 0 - 5 mg/dL | [...] + +---------+ + + Comprehensive Metabolic Panel (07/31/2018 12:00 AM PDT) + + + + + + | Component | Value | Ref Range | Performed | Pathologist | | | | | At | Signature | + + + + + + | Glucose, | 154 (A) | 70 - 100 mg/dL | EXTERNAL | | | Fasting | | | LAB | | + + + + + + | BUN | 19 | mg/dL | EXTERNAL | | | | | | LAB | | + + + + + + | Creatinine | 0.66 (A) | 0.70 - 1.18 | EXTERNAL | | | | | mg/dL | LAB | | + + + + + + | BUN/Creatin | 28.8 (A) | 6.0 - 28.6 | EXTERNAL | | | ine Ratio | | | LAB | | + + + + + + | Calcium | 9.2 | mg/dL | EXTERNAL | | | | | | LAB | | + + + + + + | Protein, | 7.3 | g/dL | EXTERNAL | | | Total | | | LAB | | + + + + + + | Albumin | 3.6 | | EXTERNAL | | | | | | LAB | | + + + + + + | Globulin | 3.7 (A) | 1.8 - 3.5 | EXTERNAL | | | | | | LAB | | + + + + + + | A/G Ratio | 1.0 (A) | 1.1 - 2.4 | EXTERNAL | | | | | | LAB | | + + + + + + | Bilirubin | 0.5 | mg/dL | EXTERNAL | | | Total | | | LAB | | + + + + + + | ALP, | 78 | | EXTERNAL | | | External | | | LAB | | + + + + + + | ALT | 21 | U/L | EXTERNAL | | | | | | LAB | | + + + + + + | AST | 24 | U/L | EXTERNAL | | | | | | LAB | | + + + + + + | Na | 137 | mmol/L | EXTERNAL | | | | | | LAB | | + + + + + + | K | 4.4 | mmol/L | EXTERNAL | | | | | | LAB | | + + + + + + | Cl | 100 | mmol/L | EXTERNAL | | | | | | LAB | | + + + + + + | CO2 | 27 | mmol/L | EXTERNAL | | | | | | LAB | | + + + + + + | Anion Gap | 14.4 | mmol/L | EXTERNAL | | | | | | LAB | | + + + + + + | Estimated | 119 | mg/dL | EXTERNAL | | | [...]
--- OUTSIDE RECORDS SUMMARY | ~2019-03-28 | XMS | Encounter Summary ---
Demographics + + + | Address | [address] | | | [place] [address] | + + + | Home Phone | | + + + | Preferred Language | Unknown | + + + | Marital Status | | + + + | Evangelical Affiliation | 1076 | + + + | Race | Unknown | + + + | Ethnic Group | Unknown | + + + Author + + + | Author | [facility] | | | and [place] | + + + | Organization | [facility] | | | and [place] | + + + | Address | Unknown | + + + | Phone | Unavailable | + + + Support + + + + + | Name | Relationship | Address | Phone | + + + + + | Jessica Amezquita | ECON | [address] | | | | | [place] | | | | | [address] | | + + + + + | Bel Solis | ECON | Unknown | | + + + + + | José Amezquita | ECON | [place] | | | | | [address] | | + + + + + | Jessica Amezquita | ECON | Unknown | | + + + + + Care Team Providers + +------+ + | Care Engineer First Assistant Name | Role | Phone | + +------+ + PCP | Unavailable | + +------+ + Encounter Details +--------+ + + + + | Date | Type | Department | Care Team | Description | +--------+ + + + + | 04/21/ | Hospital | [facility] | Christina Da Silva | | | 2012 | Encounter | MED [facility] | MD [place] [address] | | | | | [place] [address] | [facility] | | | | | [place], [place] | [place] [address] | | | | | [address] | [phone] | | | | | [phone] | | | | | | | Cody Goodwin | | | | | | MD Evelia [address] | | | | | | [place], [place] | | | | | | [address] | | | | | | [phone] | | | | | | | [...] | XR ABDOMEN AP | Routin | 04/22/2012 | | Results for this | | | e | 2:24 PM | | procedure are in the | | | | PST | | results section. | + +--------+ + + + | CT ABDOMEN PELVIS W | Routin | 04/22/2012 | | Results for this | | CONTRAST | e | 11:43 AM | | procedure are in the | | | | PST | | results section. | + +--------+ + + + | CBC WITH | Routin | 04/21/2012 | | Results for this | | DIFFERENTIAL | e | 7:28 PM | | procedure are in the | | | | PST | | results section. | + +--------+ + + + | COMPREHENSIVE | Routin | 04/21/2012 | | Results for this | | METABOLIC PANEL | e | 7:28 PM | | procedure are in the | | | | PST | | results section. | + +--------+ + + + documented in this encounter Results XR Abdomen AP (04/22/2012 2:24 PM PST) + + | Specimen | + + | | + + + + + | Narrative | Performed At | + + + | [facility] | [place] | | Department [address] [facility] | [facility] | | [ rep [address]] [ rep [facility] | | [facility]] Signed | - IMAGING | | | | | Patient Name: REAGAN AMEZQUITA Physician: | | | BILL. : 1945 Age: 67 Sex: M Unit #: [id number] | | | Exam Date: 04/21/12 Location: ER | | | Report #: [id number] Page: | | | %(RAD)RES..mtdd.print.filter("pg") of %(RAD) | | | RES..mtdd.print.filter("tpg") | | | | | | Accession Number: [id number] | | | ABDOMEN ONE VIEW 04/22/2012 CLINICAL HISTORY: RIGHT | | | ABDOMINAL PAIN. COMPARISON: CT scan dated 04/21/12. | | | FINDINGS: AP view of the abdomen/pelvis was obtained. There is a | | | nonobstructive bowel gas pattern. Moderate stool is seen throughout | | | the colon consistent with constipation. Mild dextroscoliosis is | | | present of the lumbar spine. Moderate degenerative change are noted of | | | the bilateral hips. IMPRESSION: CONSTIPATION. | | | Dictated Date/Time: 04/22/2012 14:24 Transcribed Date/Time: | | | 04/22/2012 18:46 Manometer Technician: | | | <<Signature on File>> | | | Rico | | | MD Jack04/23/12 0933 <Electronically signed by Rico Santiago MD> | | | Rico Santiago MD 04/22/12 1424 Manometer Technician: Abhishek | | | [id number]/02/13 1846 Cody Goodwin MD | | | | | + + + + + + + + | Performing | Address | City/State/Zipcode | Phone Number | | Organization | | | | + + + + + | [facility] | [address] | [place] | [phone] | | [facility] | | [address] | | | - IMAGING | | | | + + + + + CT Abdomen Pelvis w Contrast (04/22/2012 11:43 AM PST) + + | Specimen | + + | | + + + + + | Narrative | Performed At | + + + | [facility] | [place] | | Department [address] [facility] [place] | [facility] | | [ rep ct [address]] [ rep ct [facility] | | st zip] Signed | - IMAGING | | | | | Patient Name: REAGAN AMEZQUITA Jeovany Physician: | | | BILL.[birth year] : 1945 Age: 67 Sex: M Unit #: [id number] | | | Exam Date: 04/21/12 Location: ER | | | Report #: [id number] Page: | | | %(RAD)RES..mtdd.print.filter("pg") of %(RAD) | | | RES..mtdd.print.filter("tpg") | | | | | | Accession Number: [id number] | | | CT SCAN OF THE ABDOMEN AND PELVIS 04/22/2012 CLINICAL | | | HISTORY: ABDOMINAL PAIN. PREVIOUS APPENDECTOMY. | | | COMPARISON: KUB obtained earlier the same day. PROTOCOL: | | | Axial CT images of the abdomen and pelvis were obtained after 80 mL of | | | Isovue 370 with reconstruction views. FINDINGS: | | | There is some mild scar involving the bilateral lung bases. Moderate | | | elevation of the left hemidiaphragm is seen. Moderate coronary | | | artery calcifications are visualized of the heart. The heart is of | | | normal size. The liver is enlarged, measuring 22.9 cm | | | craniocaudally. No focal abnormalities are seen. There is a tiny | | | gallstone in the region of the gallbladder neck that measures 0.6 cm. | | | However, there is no evidence for cholecystitis at this time. | | | Biliary ducts are otherwise normal. The spleen is enlarged, | | | measuring 17.0 cm in the greatest dimension. No focal abnormalities | | | are visualized. Pancreas and adrenals are normal. There | | | is a tiny cyst in the inferior pole of the right kidney that is too | | | small to fully characterize. The right ureter is normal. A tiny cyst | | | is seen in the inferior pole of the left kidney along the medial | | | aspect that is too small to fully characterize. The left ureter is | | | normal. Stomach, small bowel, and terminal ileum are | | | normal. The appendix is not seen, consistent with previous | | | appendectomy. The colon demonstrates moderate stool. There | | | is extensive atherosclerosis of the aorta. IVC is normal. Some | | | prominent portocaval lymph nodes are seen with the largest measuring | | | 1.5 cm (image 43). Several prominent omental lymph nodes are noted | | | in the left abdomen with the largest measuring 1.5 cm (image 45). No | | | enlarged lymph nodes are seen in the retroperitoneum. | | | There is mild dextroscoliosis of the lumbar spine. Mild wedging is | | | noted at several levels of the lower thoracic spine of indeterminate | | | age. There is mild to moderate spondylosis of the lumbar. Mild disk | | | height loss is present at L3-4. PELVIS FINDINGS: | | | Bladder and prostate are normal. Seminal vesicles are normal. | | | There is advanced atherosclerosis of the iliac arteries. No | | | enlarged lymph nodes are noted in the pelvis. There is a | | | small umbilical hernia of fat. No acute osseous | | | abnormalities are seen. IMPRESSION: 1. STATUS POST | | | APPENDECTOMY BASED ON HISTORY. 2. HEPATOMEGALY AND SPLENOMEGALY. | | | 3. BORDERLINE LYMPH NODES IN THE PORTOCAVAL REGIONS WELL IN | | | THE LEFT ABDOMEN OMENTUM. 4. MODERATE ELEVATION OF THE LEFT | | | HEMIDIAPHRAGM. 5. SMALL GALLSTONE AT THE GALLBLADDER NECK, NO | | | EVIDENCE FOR CHOLECYSTITIS. FURTHER INFORMATION MAY BE OBTAINED WITH | | | ULTRASOUND IF CLINICALLY INDICATED. 6. MILD WEDGING OF SEVERAL | | | LOWER THORACIC VERTEBRAL BODIES OF INDETERMINATE AGE. MRI CAN BE | | | OBTAINED FOR FURTHER EVALUATION IF CLINICALLY INDICATED. A | | | PRELIMINARY REPORT WAS SENT BY [employer] AT 10:02 P.M. ON | | | 04/21/12. Dictated Date/Time: 04/22/2012 11:43 | | | Transcribed Date/Time: 04/22/2012 15:29 Manometer Technician: | | | <<Signature on File>> | | | Rico | | | MD Jack04/23/12 0933 <Electronically signed by Rico Santiago MD> | | | Rico Santiago MD 04/22/12 1143 Manometer Technician: Abhishek | | | [id number]/02/13 1529 Cody Goodwin MD | | | | | + + + + + + + + | Performing | Address | City/State/Zipcode | Phone Number | | Organization | | | | + + + + + | [facility] | [address] | [place] | [phone] | | [facility] | | [address] | | | - IMAGING | | | | + + + + + CBC with Differential (04/21/2012 7:28 PM PST) + + + + + [...] + + + + | WBC | 7.6 | 4.0 - 11.0 K/uL | [facility] | | | | | | [facility] | | | | | | MEDICAL | | | | | | CENTER - | | | | | | LABORATORY | | + + + + + + | RBC | 5.27 | 4.30 - 5.70 | [facility] | | | | | M/uL | [facility] | | | | | | MEDICAL | | | | | | CENTER - | | | | | | LABORATORY | | + + + + + + | Hemoglobin | 13.6 | 13.5 - 18.0 | [facility] | | | | | gm/dL | [facility] | | | | | | [facility]ICAL | | | | | | CENTER - | | | | | | LABORATORY | | + + + + + + | Hematocrit | 41.7 | 40.0 - 51.0 % | [facility] | | | | | | [facility] | | | | | | MEDICAL | | | | | | CENTER - | | | | | | LABORATORY | | + + + + + + | MCV | 79.1 (L) | 83.0 - 101.0 fL | [facility] | | | | | | [facility] | | | | | | MEDICAL | | | | | | CENTER - | | | | | | LABORATORY | | + + + + + + | MCH | 25.7 (L) | 28.0 - 35.0 pg | [facility] | | | | | | [facility] | | | | | | MEDICAL | | | | | | CENTER - | | | | | | LABORATORY | | + + + + + + | MCHC | 32.5 | 32.0 - 36.0 | [facility] | | | | | g/dL | [facility] | | | | | | MEDICAL | | | | | | CENTER - | | | | | | LABORATORY | | + + + + + + | RDW-CV | 15.2 (H) | <15.0 % | [facility] | | | | | | [facility] | | | | | | MEDICAL | | | | | | CENTER - | | | | | | LABORATORY | | + + + + + + | Platelet | 221 | 140 - 440 K/uL | [facility] | | | Count | | | [facility] | | | | | | MEDICAL | | | | | | CENTER - | | | | | | LABORATORY | | + + + + + + | % | 71.5 | 45 - 75 % | [facility] | | | Neutrophils | | | [facility] | | | | | | MEDICAL | | | | | | CENTER - | | | | | | LABORATORY | | + + + + + + | % | 18.5 (L) | 20 - 45 % | [facility] | | | Lymphocytes | | | [facility] | | | | | | MEDICAL | | | | | | CENTER - | | | | | | LABORATORY | | + + + + + + | % Monocytes | 8.4 | 4 - 12 % | [facility] | | | | | | [facility] | | | | | | MEDICAL | | | | | | CENTER - | | | | | | LABORATORY | | + + + + + + | % | 1.1 | 0 - 5 % | [facility] | | | Eosinophils | | | [facility] | | | | | | MEDICAL | | | | | | CENTER - | | | | | | LABORATORY | | + + + + + + | % Basophils | 0.5 | 0 - 1 % | [facility] | | | | | | [facility] | | | | | | MEDICAL | | | | | | CENTER - | | | | | | LABORATORY | | + + + + + + | Absolute | 5.5 | 1.5 - 6.6 K/uL | [facility] | | | Neutrophils | | | [facility] | | | | | | MEDICAL | | | | | | CENTER - | | | | | | LABORATORY | | + + + + + + | Absolute | 1.4 | 0.6 - 3.2 K/uL | [facility] | | | Lymphocytes | | | [facility] | | | | | | MEDICAL | | | | | | CENTER - | | | | | | LABORATORY | | + + + + + + | Absolute | 0.6 | 0.0 - 1.0 K/uL | [facility] | | | Monocytes | | | [facility] | | | | | | MEDICAL | | | | | | CENTER - | | | | | | LABORATORY | | + + + + + + | Absolute | 0.1 | 0.0 - 0.4 K/uL | [facility] | | | Eosinophils | | | [facility] | | | | | | MEDICAL | | | | | | CENTER - | | | | | | LABORATORY | | + + + + + + | Absolute | 0.0 | 0.0 - 0.1 K/uL | [facility] | | | Basophils | | | [facility] | | [...] + | [facility] | [address] | [place] | [phone] | | [facility] | | [address] | | | - LABORATORY | | | | + + + + + | [facility] | [address] | [place] | | | [facility] | | [address] | | | - LABORATORY | | | | + + + + + Comprehensive Metabolic Panel (04/21/2012 7:28 PM PST) + + + + + + | Component | Value | Ref Range | Performed | Pathologist | | | | | At | Signature | + + + + + + | Glucose | 252 (H) | 70 - 109 mg/dL | [facility] | | | | | | [facility] | | | | | | MEDICAL | | | | | | CENTER - | | | | | | LABORATORY | | + + + + + + | Calcium | 8.9 | 8.3 - 10.5 | [facility] | | | | | mg/dL | [facility] | | | | | | MEDICAL | | | | | | CENTER - | | | | | | LABORATORY | | + + + + + + | Alkaline | 59 | 40 - 110 IU/L | [facility] | | | Phosphatase | | | [facility] | | | | | | MEDICAL | | | | | | CENTER - | | | | | | LABORATORY | | + + + + + + | AST | 75 (H) | 10 - 42 IU/L | [facility] | | | | | | [facility] | | | | | | MEDICAL | | | | | | CENTER - | | | | | | LABORATORY | | + + + + + + | ALT | 40 | 6 - 45 IU/L | [facility] | | | | | | [facility] | | | | | | MEDICAL | | | | | | CENTER - | | | | | | LABORATORY | | + + + + + + | Bilirubin | 1.0 | 0.2 - 1.0 mg/dL | [facility] | | | Total | | | [facility] | | | | | | MEDICAL | | | | | | CENTER - | | | | | | LABORATORY | | + + + + + + | Total | 6.4 | 6.0 - 7.8 gm/dL | [facility] | | | Protein | | | [facility] | | | | | | MEDICAL | | | | | | CENTER - | | | | | | LABORATORY | | + + + + + + | Albumin | 3.9 | 3.2 - 5.0 gm/dL | [facility] | | | | | | [facility] | | | | | | MEDICAL | | | | | | CENTER - | | | | | | LABORATORY | | + + + + + + | BUN | 8 | 7 - 18 mg/dL | [facility] | | | | | | [facility] | | | | | | MEDICAL | | | | | | CENTER - | | | | | | LABORATORY | | + + + + + + | Creatinine | 1.03 | 0.60 - 1.30 | [facility] | | | | | mg/dL | [facility] | | | | | | MEDICAL | | | | | | CENTER - | | | | | | LABORATORY | | + + + + + + | Estimated | >60Comment: For | >60 mL/min/A | [facility] | | | GFR | -Americans, | | [facility] | | | | please multiply [...] + + + + | BUN/Creatin | 7.8 (L) | 12 - 20 | [facility] | | | ine Ratio | | | [facility] | | | | | | MEDICAL | | | | | | CENTER - | | | | | | LABORATORY | | + + + + + + | Na | 133 (L) | 136 - 149 mEq/L | [facility] | | | | | | [facility] | | | | | | MEDICAL | | | | | | CENTER - | | | | | | LABORATORY | | + + + + + + | K | 4.3 | 3.5 - 5.1 mEq/l | [facility] | | | | | | [facility] | | | | | | MEDICAL | | | | | | CENTER - | | | | | | LABORATORY | | + + + + + + | Cl | 101 | 98 - 109 mEq/l | [facility] | | | | | | [facility] | | | | | | MEDICAL | | | | | | CENTER - | | | | | | LABORATORY | | + + + + + + | CO2 | 25 | 24 - 31 mEq/L | [facility] | | | | | | [facility] | | | | | | MEDICAL | | | | | | CENTER - | | | | | | LABORATORY | | + + + + + + | Anion Gap | 11.3 | 6.0 - 17.0 | [facility] | | | | | | [facility] | | | | | | [...] + | [facility] | [address] | [place] | [phone] | | [facility] | | [address] | | | - LABORATORY | | | | + + + + + | [facility] | [address] | [place] | | | [facility] | | [address] | | | - LABORATORY | | | | + + + + + documented in this encounter Visit Diagnoses Not on filedocumented in this encounter
--- OUTSIDE RECORDS SUMMARY | ~2019-03-28 | XMS | Encounter Summary ---
Demographics + + + | Address | [address] | | | [place] [address] | + + + | Home Phone | | + + + | Preferred Language | Unknown | + + + | Marital Status | | + + + | Orthodox Affiliation | [id number] | + + + | Race | Unknown | + + + | Ethnic Group | Unknown | + + + Author + + + | Author | [facility] | | | and [place] | + + + | Organization | [facility] | | | and [place] | + + + | Address | Unknown | + + + | Phone | Unavailable | + + + Support + + + + + | Name | Relationship | Address | Phone | + + + + + | Jessica Shepard | ECON | [phone] | | | | | [place] | | | | | [phone] | | + + + + + | Bel Solis | ECON | Unknown | | + + + + + | José Shepard | ECON | [place] | | | | | [phone] | | + + + + + | Jessica Shepard | ECON | Unknown | | + + + + + Care Team Providers + +------+ + | Care Polymerization Oven Tender Name | Role | Phone | + +------+ + | Dian Lr NP | PCP | | + +------+ + Reason for Visit + + + | Reason | Comments | + + + | Shoulder Pain | left | + + + | Hip Pain | Left | + + + Auth/Cert +--------+--------+ + + + + | Status | Reason | Specialty | Diagnoses / | Referred By | Referred To | | | | | Procedures | Contact | Contact | +--------+--------+ + + + + | | | | Diagnoses | | | | | | | Fall, | | | | | | | initial | | | | | | | encounter | | | | | | | Fever, | | | | | | | unspecified | | | | | | | fever cause | | | | | | | Pneumonia | | | | | | | due to | | | | | | | infectious | | | | | | | organism, | | | | | | | unspecified | | | | | | | laterality, | | | | | | | unspecified | | | | | | | part of lung | | | | | | | 5th | | | | | | | metatarsal | | | | | | | diabetic | | | | | | | infection | | | | | | | Procedures | | | | | | | AMPUTATION | | | | | | | TOE | | | +--------+--------+ + + + + Encounter Details +--------+ + + + + | Date | Type | Department | Care Team | Description | +--------+ + + + + | 11/19/ | Hospital | [facility] | Jurgen Casiano | initial | | 2018 - | Encounter | [facility] | MD Shayne [address] | encounter (Primary | | | | [address] [place] | [address] [place] | Dx); Fever, | | 11/25/ | | [place] [address] | [place] [address] | unspecified fever | | 2018 | | [phone] | [phone] | cause; Pneumonia due | | | | | | to infectious | | | | | Gray Perea MD | organism, | | | | | [address] | unspecified | | | | | [place], [place] | laterality, | | | | | [id number] | unspecified part of | | | | | | lung; Sepsis, due to | | | | | Mil Sandoval MD | unspecified | | | | | [address] | organism (HCC); | | | | | [place], [place] | Insulin dependent | | | | | [id number] | diabetes mellitus | | | | | | ([facility]); Other chronic | | | | | | osteomyelitis of | | | | | | right foot ([facility]); | | | | | | Peripheral vascular | | | | | | disease ([facility]) | +--------+ + + + + Social [...] + + + | Blood Pressure | 144/75 | 11/25/2017 3:45 PM | | | | | PDT | | + + + + + | Pulse | 86 | 11/25/2017 3:45 PM | | | | | PDT | | + + + + + | Temperature | 36.6 C (97.9 F) | 11/25/2017 3:45 PM | | | | | PDT | | + + + + + | Respiratory Rate | 28 | 11/25/2017 3:45 PM | | | | | PDT | | + + + + + | Oxygen Saturation | 93% | 11/25/2017 3:45 PM | | | | | PDT [...] documented as of this encounter Discharge Summaries Justin Reyna MD - 11/25/2017 1:01 PM PDTFormatting of this note might be different f rom the original. DISCHARGE SUMMARY Patient Name: Reagan Shepard : 1945 Date of Admission: 11/19/2017 Date of Discharge: 11/25/17 Admitting Physician: Mil Sandoval MD Discharging Physician: Justin Reyna MD Primary Care Provider: Dian Lr NP Discharge Diagnoses: Principal Problem: Sepsis Active Problems: Insulin dependent diabetes mellitus Peripheral vascular disease Osteomyelitis of right foot Class 1 obesity with serious comorbidity in adult Essential hypertension Resolved Problems: * No resolved hospital problems. * Patient Active Problem List Diagnosis Sepsis Insulin dependent diabetes mellitus Peripheral vascular disease Osteomyelitis of right foot Class 1 obesity with serious comorbidity in adult Essential hypertension Consultants: Dr. Simone Aceves of podiatry Procedures: 11/19 CXR: Findings: The heart is enlarged. Aorta is normal. Mediastinum is unremarkable. Pulmonary vasculature is prominent with cephalization. Mild diffuse pulmonary edema is seen. Probable small bilateral pleural effusions are observed along with moderate left compressive atelectasis. Moderate right curvature of the thoracic spine is seen. IMPRESSION - Findings consistent with CHF or fluid overload. 11/19 Left hip xray: FINDINGS: The left hip shows no acute findings. There are moderate degenerative changes of the bilateral hips. Right curvature of the lumbar spine is partially imaged along with moderate spondylosis. Bone mineralization is decreased. There is moderate atherosclerosis. IMPRESSION - No acute osseous findings. 11/19 Lt shoulder xray: FINDINGS: There are no acute osseous findings. There are mild degenerative changes of the AC joint. The glenohumeral joint is intact. Bone mineralization is decreased. Soft tissue structures are unremarkable. IMPRESSION - Mild degenerative changes of the AC joint. 11/20 Right foot MRI: FINDINGS: A soft tissue ulcer is observed along the lateral midfoot. Associated signal alteration is observed at the base of the fifth metatarsal with abnormal enhancement consistent with osteomyelitis. No significant destructive change is observed at this time. There is mild diffuse edema suggestive of cellulitis. The ankle anterior, posterior, lateral, and Achilles tendons are intact. The plantar fascia images normal signal. The tibiofibular ligaments, talofibular ligaments, calcaneofibular ligament, and deltoid ligaments are intact. The sinus tarsi shows normal signal. IMPRESSION - Soft tissue ulcer along the lateral midfoot with associated signal alteration at the base of the fifth metatarsal showing abnormal enhancement, consistent with osteomyelitis. No significant destructive change is observed at this time. There is mild diffuse edema of the foot suggestive of cellulitis. 11/20 CT Chest: FINDINGS: Neck base is normal. Heart is mildly enlarged. Extensive coronary calcium is visualized. There is mild to moderate atherosclerosis of the aorta extending into the branches. The pulmonary arteries are unremarkable. SVC is normal. No enlarged lymph nodes are seen in the mediastinum, juan, or axillae. Trachea and esophagus demonstrate no acute findings. Diffuse interstitial thickening are visualized of the bilateral lungs consistent with pulmonary congestion. Moderate patchy groundglass opacities are seen of the bilateral lungs consistent with pulmonary edema. These findings are most consistent with CHF or fluid overload. No definite focal pneumonia is observed. Mild to moderate linear atelectasis are in the left lung lingula and left lower lobe. There are cholecystectomy clips. Chest wall structures are normal. Moderate levoscoliosis of the thoracolumbar spine is present. There is moderate spondylosis. Multilevel mild to moderate disc narrowing are seen with vacuum disc phenomenon. Motion is observed in the region of the sternum that limits evaluation. IMPRESSION - No definite evidence for focal pneumonia. Findings consistent with CHF or fluid overload. Overlapping pneumonitis cannot entirely be excluded. Extensive coronary calcium. Recommend clinical correlation for possible ischemia heart disease. 11/21 Right foot surgery: INDICATIONS FOR PROCEDURE: This is a 72-year-old male who was admitted to the hospital wit h sepsis with high white blood cell count, high C-reactive protein fever, found to have a no nhealing ulcer that probed the bone with cellulitis, signs of infection in the right foot, M RI confirmed osteomyelitis over the styloid process and proximal base of the 5th metatarsal, now presents for operative intervention. PROCEDURE: Chart has been reviewed and informed consent had been obtained, the patient was taken the operating room, placed on the table in supine manner positioned and padded and th en anesthesia monitors were applied, 20 mL of 0.25 percent Marcaine plain were used for loca l infiltrative block to the right foot. No other anesthesia was used during the case. [facility] lower extremity was then scrubbed, prepped and draped in an aseptic manner. A well-padde d calf tourniquet was inflated to 250 mmHg. Attention was then directed to the lateral aspe ct of the right foot. Incision was made along the lateral side of the 5th metatarsal shaft. There is a 1 inch diameter ulceration present over the styloid process with exposed bone. Dissection was carried distally and then a sagittal saw utilized to transect the 5th metata rsal. Using sharp dissection, the base of the 5th metatarsal was freed of its extensive so ft tissue attachments. The soft bone at the styloid process is trimmed with a clean bone cu tter and 2 small bone cultures are obtained 1 aerobic and 1 anaerobic. The space created by the vacated bone is explored, found some tracking in the soft tissues underneath the 5th me tatarsal. This was carefully opened and debrided sharply with both rongeur and tissue force ps. This extended about 1 inch. A small near breakdown was noted plantarly and this area was excised as well to communicate to this open space. Then, 3 liters of pulse lavage irrig ation are used to wash out this entire area it was felt the remaining tissue looked clean. The distal incisional portion was resutured with 3-0 nylon in a simple interrupted suture te chnique, then quarter-inch iodoform gauze was packed into all the recesses and a space for t he 5th metatarsal was in a saline-moistened gauze, fluffs, Kerlix and Coban utilized to fas hion a dry sterile compressive dressing. A Telfa dressing was placed along some shallow par tial thickness ulceration on the anterior distal alanis. The calf tourniquet was released wit h good digital reperfusion noted. The patient tolerated the procedure and the local anesthe jaja well. The patient was transported back to the hospitalist service and will continue est imated 6 weeks of IV antibiotic therapy. No results found. Labs in the last 24 hours: Recent Results (from the past 24 hour(s)) POC Glucose Result Value Ref Range Glucose, POC 211 (H) 70 - 109 mg/dL POC Glucose Result Value Ref Range Glucose, POC 219 (H) 70 - 109 mg/dL CBC with Differential Result Value Ref Range WBC 14.8 (H) 4.0 - 11.0 K/uL RBC 4.60 4.30 - 5.70 M/uL Hgb 11.0 (L) 13.5 - 18.0 g/dL Hct 34.1 (L) 40.0 - 51.0 % MCV 74.0 (L) 83.0 - 101.0 fL MCH 23.8 (L) 28.0 - 35.0 pg MCHC 32.2 32.0 - 36.0 g/dL RDW-CV 15.9 (H) <15.0 % Platelet Count 312 140 - 440 K/uL MPV 8.3 fL % Neutrophils 78.2 45.0 - 82.0 % % Lymphocytes 9.3 (L) 20.0 - 45.0 % % Monocytes 8.4 4.0 - 12.0 % % Eosinophils 3.3 0.0 - 5.0 % % Basophils 0.8 0.0 - 1.0 % Absolute Neutrophils 11.60 (H) 1.80 - 8.50 K/uL Absolute Lymphocytes 1.40 0.60 - 3.20 K/uL Absolute Monocytes 1.20 (H) 0.00 - 1.00 K/uL Absolute Eosinophils 0.50 (H) 0.00 - 0.40 K/uL Absolute Basophils 0.10 0.00 - 0.10 K/uL Basic Metabolic Panel Result Value Ref Range NA 133 (L) 136 - 149 mmol/L K 4.6 3.5 - 5.1 mmol/L CL 98 98 - 109 mmol/L CO2 27 24 - 31 mmol/L ANION GAP 8 3 - 16 mmol/L GLUCOSE 255 (H) 70 - 109 mg/dL BUN 15 7 - 18 mg/dL Creatinine, Serum/Plasma 0.91 0.60 - 1.30 mg/dL eGFR if not >60 >=60 mL/min/1.73m2 CALCIUM 8.1 (L) 8.3 - 10.5 mg/dL BUN/CREA 16.5 POC Glucose Result Value Ref Range Glucose, POC 217 (H) 70 - 109 mg/dL POC Glucose Result Value Ref Range Glucose, POC 196 (H) 70 - 109 mg/dL Reason for Admission: Please refer to the H&P for full details. In short, this is a 72 y.o. male with a history of uncontrolled diabetes, morbid obesity, severe deconditioning, hypertension, who presented with fall and fevers, found to have osteomyelitis associated with chronic right lateral trisha t diabetic ulcer. Problem-Oriented Hospital Course: Acute osteomyelitis - Arrived with WBC 23.6. Lactic acid 1.3. Febrile on 11/19 with sepsis - R foot ulceration able to be probed to bone, concerning for osteomyelitis, which appeared to be the cause of his sepsis on arrival. - CT chest 11/20 fluid overload, no PNA, blood cx 11/19 NGTD, Urine culture 11/19 10,000 mixed gr am positive salvador -Wound culture 11/19 enterobacter aerogenes, MSSA, tissue culture also growing enterobacter -MRI 11/20 showed inflammation in 5th metatarsal consistent with osteomyelitis - Had I & D/partial 5th metatarsal resection 11/[address] Aceves - Discussed with antimicrobial stewardshipteam 11/22, will stop vancomycin/cipro and start ertapenem based on cultures, PICC line placed 11/22 - Discussed with Dr. Aceves, no plan on wound vac while here, but may need one as outpatien t, wound care will be daily wet to dry dressings for now, plan for 6 weeks of antibiotics in itially, needs to follow up with Dr. Aceves next week IDDM with hyperglycemia -Uncontrolled BS in the 300's in the setting of infection/surgery, increased glargine to 60 units daily, sliding scale, significant improvement with BS in the high 100's-low 200's - Continue glargine, sliding scale, may need to provide scheduled insulin with meals if BS remain high ?CAD No acute symptoms. CT chest shows vascular congestion with severe coronary artery disease. TTE 11/20 showed mod LVH with normal EF with mild apical hypokinesis. -Hold lasix for now, BNP 57, as per TTE -Can be referred for outpatient stress test Essential hypertension: - BP elevated, started amlodipine - Did not feel comfortable starting DK in setting of acute infection/osteomyelitis, but sh ould eventually be on lisinopril for renal protection, BP control in the setting of chronic diabetes CVA history -Cont Asa and statin Chronic Pain -Cont norco PRN,gabapentin, cymbalta GERD -Cont pantoprazole Mechanical fall -PT/OT ordered Code Status: Full Code Disposition: [facility] Discharge Condition: Stable, very deconditioned and weak at baseline Pleasant, no distress RRR, no m/r/g CTA bilaterally Soft, obese, NT Ext WWP, right foot ulcer with deep wound, slight purulent drainage Contact information for after-discharge care Placement Destination [facility] . Specialty: Sn[facility] Facility Contact information: [address] [place] [address] Discharge Medications New Medications Details acetaminophen 325 mg tablet Take 2 tablets by mouth every 4 hours as needed for Pain (or fever >= 38.6 C (101.5 F)). aka: TYLENOL albuterol-ipratropium 2.5-0.5 mg/3 mL Soln Take 3 mLs by nebulization every 4 hours as needed. amLODIPine 5 mg tablet Take 1 tablet by mouth Daily. aka: NORVASC docusate sodium 100 MG capsule Take 200 mg by mouth Daily. aka: COLACE ertapenem (INVanz) 1 g in sodium chloride 0.9% 50 mL IVPB Inject 1 g into the vein every 24 hours for 38 days. Indications: Infection of Foot in Donya betic Patient insulin lispro 100 units/mL injection (pen) Inject 0-12 Units under the skin 4 times daily (with meals and nightly). Blood Glucose (BG ) < 150:None BG 150-200: DAY: 2 units.NIGHT: 0 units BG 201-250: DAY: 4 units.NIGHT: 2 units BG 251-300: DAY: 6 units.NI GHT: 4 units BG 301-350: DAY: 8 units.NIGHT: 6 units BG 351-400: DAY: 10 uni ts.NIGHT: 8 units BG > 400 : DAY: 12 units.NIGHT: 10 units aka: humaLOG KWIKPEN senna 8.6 mg tablet Take 1 tablet by mouth Twice daily as needed for Constipation. aka: SENOKOT trolamine salicylate 10% cream Apply topically every 4 hours as needed for Pain. aka: ASPERCREME Unchanged Medications Details aspirin 325 mg tablet Take 325 mg by mouth Daily. atorvaSTATin 40 mg tablet Take 40 mg by mouth nightly. aka: LIPITOR docusate-senna 50-8.6 mg per tablet Take 1 tablet by mouth Daily. aka: SENOKOT-S DULoxetine [address] capsule Take 30 mg by mouth 2 times daily. aka: CYMBALTA gabapentin 400 mg capsule Take 800 mg by mouth 3 times daily. aka: NEURONTIN HYDROcodone-acetaminophen 10-325 mg per tablet Take 1 tablet by mouth 4 times daily as needed for Pain. aka: NORCO insulin glargine 100 units/mL injection (vial) Inject 30 Units under the skin 2 times daily. aka: LANTUS omeprazole 20 mg capsule Take 20 mg by mouth every morning (before breakfast). aka: priLOSEC sAXagliptin 5 mg Tabs tablet Take 5 mg by mouth Daily. aka: ONGLYZA Studies With Pending Results: None Greater than 30 minutes were spent on discharge and coordination of post-hospital care. Electronically signed by: Justin Reyna MD, 11/25/2017 13:01 [facility] documented in this encounter Medications at Time [...] Units | 3 mL | 0 | 09/07/20 | | | (HUMALOG KWIKPEN) | under [...] documented as of this encounter Progress Notes Justin Reyna MD - 11/24/2017 6:16 PM PDTFormatting of this note might be different f rom the original. [facility] Hospitalist Progress Note Reagan Shepard is a 72 y.o. male SUBJECTIVE: No significant right foot pain. Working well with PT/OT today. Doesn't like food, but g ood appetite. No chest pain or shortness of breath. VITALS: Temp: 36.6 C (97.9 F), Pulse: 90, Resp: 20, BP: 169/73, SpO2 93 % on room air Temp Min : 36.6 C (97.9 F) Max: 36.7 C (98.1 F) Weight: 103.7 kg (228 lb 9.6 oz) Intake/Output Summary (Last 24 hours) at 11/24/171815 Last data filed at 11/24/17 1300 Gross per 24 hour Intake 1640 ml Output 0 ml Net 1640 ml PHYSICAL EXAM: General: Alert, no distress, comfortable Cardiovascular: RRR Respiratory: CTA bilaterally Abdomen: Soft, obese, NT, bowel sounds present Extremities: WWP, right foot wrapped Miller catheter present: No DIAGNOSTIC STUDIES: Available data and images were reviewed personally. Significant results and findings are a ddressed here or in the Assessment and Plan. Recent Results (from the past 24 hour(s)) POC Glucose Result Value Ref Range Glucose, POC 280 (H) 70 - 109 mg/dL POC Glucose Result Value Ref Range Glucose, POC 296 (H) 70 - 109 mg/dL CBC with Differential Result Value Ref Range WBC 14.7 (H) 4.0 - 11.0 K/uL RBC 4.59 4.30 - 5.70 M/uL Hgb 11.2 (L) 13.5 - 18.0 g/dL Hct 33.8 (L) 40.0 - 51.0 % MCV 73.6 (L) 83.0 - 101.0 fL MCH 24.5 (L) 28.0 - 35.0 pg MCHC 33.3 32.0 - 36.0 g/dL RDW-CV 15.8 (H) <15.0 % Platelet Count 278 140 - 440 K/uL MPV 8.2 fL % Neutrophils 77.0 45.0 - 82.0 % % Lymphocytes 9.1 (L) 20.0 - 45.0 % % Monocytes 9.7 4.0 - 12.0 % % Eosinophils 3.3 0.0 - 5.0 % % Basophils 0.9 0.0 - 1.0 % Absolute Neutrophils 11.30 (H) 1.80 - 8.50 K/uL Absolute Lymphocytes 1.30 0.60 - 3.20 K/uL Absolute Monocytes 1.40 (H) 0.00 - 1.00 K/uL Absolute Eosinophils 0.50 (H) 0.00 - 0.40 K/uL Absolute Basophils 0.10 0.00 - 0.10 K/uL Basic Metabolic Panel Result Value Ref Range NA 131 (L) 136 - 149 mmol/L K 4.7 3.5 - 5.1 mmol/L CL 98 98 - 109 mmol/L CO2 25 24 - 31 mmol/L ANION GAP 8 3 - 16 mmol/L GLUCOSE 308 (H) 70 - 109 mg/dL BUN 16 7 - 18 mg/dL Creatinine, Serum/Plasma 0.91 0.60 - 1.30 mg/dL eGFR if not >60 >=60 mL/min/1.73m2 CALCIUM 7.9 (L) 8.3 - 10.5 mg/dL BUN/CREA 17.6 POC Glucose Result Value Ref Range Glucose, POC 270 (H) 70 - 109 mg/dL POC Glucose Result Value Ref Range Glucose, POC 256 (H) 70 - 109 mg/dL POC Glucose Result Value Ref Range Glucose, POC 211 (H) 70 - 109 mg/dL No results found. ASSESSMENT and PLAN: Active Hospital Problems Diagnosis Insulin dependent diabetes mellitus Peripheral vascular disease Osteomyelitis of right foot Class 1 obesity with serious comorbidity in adult *Sepsis Resolved Hospital Problems Diagnosis Date Noted Date Resolved No resolved problems to display. Acute osteomyelitis - Arrived with WBC 23.6. Lactic acid 1.3. Febrile on 11/19. - R foot ulceration able to be probed to bone, concerning for osteomyelitis. CT chest 11/20 f luid overload, no PNA -blood cx 11/19 NGTD, Urine culture 11/19 10,000 mixed gram positive salvador -Wound culture 11/19 enterobacter aerogenes, MSSA, tissue culture also growing enterobacter -MRI 11/20 showed inflammation in 5th metatarsal consistent with osteomyelitis - Had I & D/partial 5th metatarsal resection 11/21 - Discussed with antimicrobial stewardship team 11/22, will stop vancomycin/cipro and start e rtapenem based on cultures, PICC line placed 11/22 - Discussed with Dr. Aceves today, no plan on wound vac while here, but may need one as out patient, wound care will be daily wet to dry dressings for now, plan for 6 weeks of antibiot ics IDDM -Uncontrolled BS in the 300's in the setting of infection/surgery, increased glargine to 60 units daily, sliding scale, mild improvement with BS in the low 200's ?CAD No acute symptoms. CT chest shows vascular congestion with severe coronary artery disease. TTE 11/20 showed mod LVH with normal EF with mild apical hypokinesis. -Hold lasix for now, BNP 57, as per TTE -Can be referred for outpatient stress test CVA history -Cont Asa and statin Chronic Pain -Cont norco PRN,gabapentin, cymbalta GERD -Cont pantoprazole Mechanical fall -PT/OT ordered Disposition : [facility] as soon as 11/25 Prophylaxis : heparin Current Facility-Administered Medications: acetaminophen 650 mg Oral Q4H PRN albuterol-ipratropium 3 mL Nebulization RT Q6H aspirin 325 mg Oral Daily atorvaSTATin 40 mg Oral Nightly dextrose 12.5 g Intravenous PRN docusate sodium 200 mg Oral Daily DULoxetine 30 mg Oral BID ertapenem 1 g Intravenous Daily gabapentin 800 mg Oral TID heparin 5,000 Units Subcutaneous 2 times per day HYDROcodone-acetaminophen 1-2 tablet Oral Q4H PRN HYDROmorphone 0.25-1 mg Intravenous Q4H PRN insulin glargine 30 Units Subcutaneous 2 times per day insulin lispro 0-18 Units Subcutaneous 4x Daily WC and HS insulin lispro 8 Units Subcutaneous TID WC labetalol 20-40 mg Intravenous Q4H PRN ondansetron 4 mg Oral Q6H PRN pantoprazole 40 mg Oral QAM AC phenylephrine-mineral oil-petrolatum Rectal 4x Daily PRN senna 17.2 mg Oral QAM trolamine salicylate Topical 4x Daily PRN Total time of approximately 15 minutes was spent with the patient and/or patient's family, and/or on the patient's floor/unit, of which more than 50% was spent counseling and/or coord ination the patient's care as outlined above. Justin Reyna 11/24/2017 18:16 [facility] Sang Duff MD - 11/24/2017 1:59 PM PDTWe are evaluating the patient for further medical rehabilitatio n services. He does not qualify per CMS guidelines for full inpatient rehab . I recommend he be transferred to SNF for further skilled therapies once he is cleared acute ly. Justin Rodriguez MD - 11/23/2017 2:24 PM PDT [facility] Hospitalist Progress Note Reagan Shepard is a 72 y.o. male SUBJECTIVE: Chronic pain in left leg, no particular pain in right foot at this time. No chest pain o r shortness of breath. VITALS: Temp: 35.5 C (95.9 F), Pulse: 91, Resp: 20, BP: 176/86, SpO2 94 % on room air Temp Min : 35.5 C (95.9 F) Max: 37 C (98.6 F) Weight: 103.7 kg (228 lb 9.6 oz) Intake/Output Summary (Last 24 hours) at 11/23/17 1424 Last data filed at 11/23/17 1247 Gross per 24 hour Intake 1227 ml Output 380 ml Net 847 ml PHYSICAL EXAM: General: Alert, no distress, sitting up, appropriate, joking Cardiovascular: RRR Respiratory: CTA bilaterally Abdomen: Soft, obese, NT Extremities: WWP, right foot wrapped Miller catheter present: No DIAGNOSTIC STUDIES: Available data and images were reviewed personally. Significant results and findings are a ddressed here or in the Assessment and Plan. Recent Results (from the past 24 hour(s)) POC Glucose Result Value Ref Range Glucose, POC 387 (H) 70 - 109 mg/dL POC Glucose Result Value Ref Range Glucose, POC 333 (H) 70 - 109 mg/dL POC Glucose Result Value Ref Range Glucose, POC 245 (H) 70 - 109 mg/dL CBC with Differential Result Value Ref Range WBC 14.5 (H) 4.0 - 11.0 K/uL RBC 4.55 4.30 - 5.70 M/uL Hgb 10.9 (L) 13.5 - 18.0 g/dL Hct 33.7 (L) 40.0 - 51.0 % MCV 74.2 (L) 83.0 - 101.0 fL MCH 24.1 (L) 28.0 - 35.0 pg MCHC 32.4 32.0 - 36.0 g/dL RDW-CV 16.1 (H) <15.0 % Platelet Count 273 140 - 440 K/uL MPV 8.9 fL % Neutrophils 72.3 45.0 - 82.0 % % Lymphocytes 12.0 (L) 20.0 - 45.0 % % Monocytes 12.8 (H) 4.0 - 12.0 % % Eosinophils 2.5 0.0 - 5.0 % % Basophils 0.4 0.0 - 1.0 % Absolute Neutrophils 10.50 (H) 1.80 - 8.50 K/uL Absolute Lymphocytes 1.70 0.60 - 3.20 K/uL Absolute Monocytes 1.80 (H) 0.00 - 1.00 K/uL Absolute Eosinophils 0.40 0.00 - 0.40 K/uL Absolute Basophils 0.10 0.00 - 0.10 K/uL Basic Metabolic Panel Result Value Ref Range NA 133 (L) 136 - 149 mmol/L K 4.3 3.5 - 5.1 mmol/L CL 96 (L) 98 - 109 mmol/L CO2 27 24 - 31 mmol/L ANION GAP 10 3 - 16 mmol/L GLUCOSE 245 (H) 70 - 109 mg/dL BUN 14 7 - 18 mg/dL Creatinine, Serum/Plasma 0.87 0.60 - 1.30 mg/dL eGFR if not >60 >=60 mL/min/1.73m2 CALCIUM 8.1 (L) 8.3 - 10.5 mg/dL BUN/CREA 16.1 POC Glucose Result Value Ref Range Glucose, POC 229 (H) 70 - 109 mg/dL POC Glucose Result Value Ref Range Glucose, POC 306 (H) 70 - 109 mg/dL Xr Chest Ap Portable Result Date: 11/22/2017 XR CHEST AP PORTABLE 11/22/2017 10:07 AM HISTORY: picc line placement. COMPARISON: Multiple p riors. Findings: There has been interval placement of a right PICC line with tip in the mid SVC about 5.2 cm above the rubin. The heart remains enlarged. Aorta is normal. Mediastinum is unremarkable. Pulmonary vasculature is prominent with cephalization. Mild diffuse pulmona ry edema is seen. There is moderate atelectasis in the left lung base. Moderate right curvat ure of the thoracic spine is seen. IMPRESSION - Interval placement of right PICC line with t ip in mid SVC about 5.2 cm above rubin. Findings consistent with CHF or fluid overload. The se findings were discussed with infusion services. Dictated and Signed by: Rico Santiago MD Electronically signed: 11/22/2017 10:16 AM ASSESSMENT and PLAN: Active Hospital Problems Diagnosis Insulin dependent diabetes mellitus Peripheral vascular disease Osteomyelitis of right foot Class 1 obesity with serious comorbidity in adult *Sepsis Resolved Hospital Problems Diagnosis Date Noted Date Resolved No resolved problems to display. Acute osteomyelitis - Arrived with WBC 23.6. Lactic acid 1.3. Febrile on 11/19. - R foot ulceration able to be probed to bone, concerning for osteomyelitis. CT chest 11/20 f luid overload, no PNA -blood cx 11/19 NGTD, Urine culture 11/19 10,000 mixed gram positive salvador -Wound culture 11/19 enterobacter aerogenes, MSSA, tissue culture also growing enterobacter -MRI 11/20 showed inflammation in 5th metatarsal consistent with osteomyelitis - Had I & D/partial 5th metatarsal resection 11/21 - Discussed with antimicrobial stewardship team 11/22, will stop vancomycin/cipro and start e rtapenem based on cultures, PICC line placed 11/22 - Discussed with Dr. Aceves today, no plan on wound vac while here, but may need one as out patient, wound care will be daily wet to dry dressings for now IDDM Home regimen: lantus 23 units at night, saxagliptin -Uncontrolled BS in the 's in the setting of infection/surgery, increased glargine to 40 units nightly, increase to high-dose sliding scale, schedule lispro with meals ?CAD No acute symptoms. CT chest shows vascular congestion with severe coronary artery disease. TTE 11/20 showed mod LVH with normal EF with mild apical hypokinesis. -Hold lasix for now, BNP 57, as per TTE -Can be referred for outpatient stress test CVA history -Cont Asa and statin Chronic Pain -Cont norco PRN,gabapentin, cymbalta GERD -Cont pantoprazole Mechanical fall -PT/OT ordered Disposition : SNF as soon as tomorrow Prophylaxis : heparin Current Facility-Administered Medications: acetaminophen 650 mg Oral Q4H PRN albuterol-ipratropium 3 mL Nebulization RT Q6H aspirin 325 mg Oral Daily atorvaSTATin 40 mg Oral Nightly dextrose 12.5 g Intravenous PRN docusate sodium 200 mg Oral Daily DULoxetine 30 mg Oral BID ertapenem 1 g Intravenous Daily gabapentin 800 mg Oral TID heparin 5,000 Units Subcutaneous 2 times per day HYDROcodone-acetaminophen 1-2 tablet Oral Q4H PRN HYDROmorphone 0.25-1 mg Intravenous Q4H PRN insulin glargine 30 Units Subcutaneous Nightly insulin lispro 0-18 Units Subcutaneous 4x Daily WC and HS ondansetron 4 mg Oral Q6H PRN pantoprazole 40 mg Oral QAM AC phenylephrine-mineral oil-petrolatum Rectal 4x Daily PRN senna 17.2 mg Oral QAM trolamine salicylate Topical 4x Daily PRN Total time of approximately 25 minutes was spent with the patient and/or patient's family, and/or on the patient's floor/unit, of which more than 50% was spent counseling and/or coord ination the patient's care as outlined above. Justin Reyna 11/23/2017 14:24 [facility] ornia, Simone Voss DPM - 11/23/2017 1:58 PM PDT Foot & Ankle Surgery Progress Note Simone Aceves DPM Reagan Shepard Age/Gender 72 y.o. male Location [facility] Attending Mil Sandoval MD Hosp Day # 4 PCP Dian Lr NP Date of Surgery: 11/21/17 Post Operative Day: 3 Procedure: I&D with partial 5th met resection R foot Subjective: Pt reports feeling better overall. Denies f/c/n/v/cp/sob. Objective: VASC: DP is 0/4; PT is 0/4; CFT is 2-3 seconds. 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 Packing in place. Surrounding redness improved. Recent Labs 11/23/17 0426 11/22/17 0447 11/21/17 0408 WBC 14.5* 16.1* 15.0* HCT 33.7* 34.6* 35.0* HGB 10.9* 11.3* 11.4* PLT 273 263 Adequate | 283 ESR -- -- 67* CRP -- -- 165.00* GLU 245* 269* 301* Microbiology Results (24 hrs) Procedure Component Value Units Date/Time Culture, Wound, Smear, w/Anaerobe [[id number]] Collected: 11/21/171207 Order Status: Sent Lab Status: In process Updated: 11/21/17 125 Specimen: Tissue from Toe, Fifth/Small, Right Narrative: The following orders were created for panel order Culture, Wound, Smear, w/Anaerobe. Procedure Abnormality Status --------- ------ Culture, Wound, Smear[[id number]] In process Culture, Anaerobic[[id number]] In process Please view results for these tests on the individual orders. Culture, Wound, Smear [[id number]] Collected: 11/21/171207 Order Status: Sent Lab Status: In process Updated: 11/21/17 125 Specimen: Tissue from Toe, Fifth/Small, Right Culture, Anaerobic [[id number]] Collected: 11/21/171207 Order Status: Sent Lab Status: In process Updated: 11/21/17 125 Specimen: Tissue from Toe, Fifth/Small, Right Assessment: Reagan Shepard is a 72 y.o. male Postop I&D and partial 5th met resection for osteomyeliti s. Plan: Recommend IV antibiotics based on bone cultures for 6 weeks. Consider wound VAC therapy. Sterile dressing change performed. Packing is removed. Perform daily wet to dry dressing changes. Dispo: Likely a SNF Simone Aceves DPM 13:58; 11/23/2017 Irasema Dominguez, Clothes Presser - 11/23/2017 9:43 AM PDT PHARMACY SERVICES: ADMISSION MEDICATION REVIEW Reagan Shepard is a 72 y.o. male admitted on 11/19/2017. Patient is Somewhat a reliable historian. Location of Patient when reviewed: ED X Medical Floor Patient s prior to admit medication and over the counter (OTC) medications/herbal supplem ents list obtained from: X Verbal interview X Patient able to recall SOME Name, strength, and directions X Pharmacy list names: [facility] X [employer] insurance reported information X Care Everywhere X Outside Information X Other sources: was able to complete medication list over the phone she read bottles off to me Vaccines up to date? Yes No Unsure Influenza x Pneumococcal x Tdap x Shingles x Noted medications discrepancies or medication-related issues: Dosage change: Medication: Prior to Admission Sig: Correct sig: Insulin glargine 100 units/mL Inject 23 units under the skin nightly Inject 30 units under the skin twice daily Other: Medication: Prior to Admission Sig: Patient taking differently BUTTONHOLER as: Hydrocodone-acetaminophen 10-325 mg Take one tablet by mouth four times daily as needed fo r pain Patient taking 1 tablet three times daily as a scheduled dose Best possible BUTTONHOLER medication list after pharmacy review: PT REPORTED TAKING NOT TAKING Medication Sig Last Dose Dispense Chris. Provider aspirin 325 mg tablet Take 325 mg by mouth Daily. Taking Historical Provider, atorvaSTATin (LIPITOR) 40 mg tablet Take 40 mg by mouth nightly. Taking Historical Provid er, docusate-senna (SENOKOT-S) 50-8.6 mg per tablet Take 1 tablet by mouth Daily. Taking Hist orical ProviderMD DULoxetine (CYMBALTA) [address] capsule Take 30 mg by mouth 2 times daily. Taking Historic al ProviderMD gabapentin (NEURONTIN) 400 mg capsule Take 800 mg by mouth 3 times daily. Taking Historic al ProviderMD HYDROcodone-acetaminophen (NORCO) 10-325 mg per tablet Take 1 tablet by mouth 4 times simone y as needed for Pain. Taking Differently Historical ProviderMD insulin glargine (LANTUS) 100 units/mL injection (vial) Inject 30 Units under the skin 2 t imes daily. Taking Historical ProviderMD omeprazole (PRILOSEC) 20 mg capsule Take 20 mg by mouth every morning (before breakfast). Taking Historical ProviderMD sAXagliptin (ONGLYZA) 5 mg TABS tablet Take 5 mg by mouth Daily. Taking Historical Provid erMD Medication review performed and electronically signed by Blanquita Bertrand, Instrument/Control Technician 11/22/2017 8:38 Electronically signed by: Irasema Moyer, Clothes Presser 11/23/2017 9:43 Justin Rodriguez MD - 11/22/2017 5:22 PM PDT [facility] Hospitalist Progress Note Reagan Shepard is a 72 y.o. male SUBJECTIVE: Foot feels better than yesterday, no acute pain in the foot. No chest pain or shortness of breath. Stated he was too tired to work with PT/OT today. Partial fifth metatarsal resection with I & D 11/21, packing and wraps in place. VITALS: Temp: 36.6 C (97.8 F), Pulse: 84, Resp: 18, BP: 121/76, SpO2 95 % on room air Temp Min : 36.6 C (97.8 F) Max: 37.8 C (100 F) Weight: 103.7 kg (228 lb 9.6 oz) Intake/Output Summary (Last 24 hours) at 11/22/17 1740 Last data filed at 11/22/17 1100 Gross per 24 hour Intake 2280 ml Output 10 ml Net 2270 ml PHYSICAL EXAM: General: Drowsy but easily arousable, no distress Cardiovascular: RRR Respiratory: CTA bilaterally Abdomen: Soft, obese, NT Extremities: WWP, right foot wrapped Miller catheter present: No DIAGNOSTIC STUDIES: Available data and images were reviewed personally. Significant results and findings are a ddressed here or in the Assessment and Plan. Recent Results (from the past 24 hour(s)) POC Glucose Result Value Ref Range Glucose, POC 363 (H) 70 - 109 mg/dL POC Glucose Result Value Ref Range Glucose, POC 257 (H) 70 - 109 mg/dL Basic Metabolic Panel Result Value Ref Range NA 133 (L) 136 - 149 mmol/L K 4.5 3.5 - 5.1 mmol/L CL 99 98 - 109 mmol/L CO2 27 24 - 31 mmol/L ANION GAP 7 3 - 16 mmol/L GLUCOSE 269 (H) 70 - 109 mg/dL BUN 14 7 - 18 mg/dL Creatinine, Serum/Plasma 1.04 0.60 - 1.30 mg/dL eGFR if not >60 >=60 mL/min/1.73m2 CALCIUM 8.0 (L) 8.3 - 10.5 mg/dL BUN/CREA 13.5 CBC with Differential Result Value Ref Range WBC 16.1 (H) 4.0 - 11.0 K/uL RBC 4.69 4.30 - 5.70 M/uL Hgb 11.3 (L) 13.5 - 18.0 g/dL Hct 34.6 (L) 40.0 - 51.0 % MCV 73.7 (L) 83.0 - 101.0 fL MCH 24.0 (L) 28.0 - 35.0 pg MCHC 32.6 32.0 - 36.0 g/dL RDW-CV 15.9 (H) <15.0 % Platelet Count 263 140 - 440 K/uL MPV 8.7 fL % Neutrophils 76.2 45.0 - 82.0 % % Lymphocytes 10.7 (L) 20.0 - 45.0 % % Monocytes 10.8 4.0 - 12.0 % % Eosinophils 1.8 0.0 - 5.0 % % Basophils 0.5 0.0 - 1.0 % Absolute Neutrophils 12.30 (H) 1.80 - 8.50 K/uL Absolute Lymphocytes 1.70 0.60 - 3.20 K/uL Absolute Monocytes 1.70 (H) 0.00 - 1.00 K/uL Absolute Eosinophils 0.30 0.00 - 0.40 K/uL Absolute Basophils 0.10 0.00 - 0.10 K/uL Magnesium Result Value Ref Range MG 1.9 1.8 - 2.5 mg/dL POC Glucose Result Value Ref Range Glucose, POC 259 (H) 70 - 109 mg/dL POC Glucose Result Value Ref Range Glucose, POC 383 (H) 70 - 109 mg/dL POC Glucose Result Value Ref Range Glucose, POC 387 (H) 70 - 109 mg/dL Xr Chest Ap Portable Result Date: 11/22/2017 XR CHEST AP PORTABLE 11/22/2017 10:07 AM HISTORY: picc line placement. COMPARISON: Multiple p riors. Findings: There has been interval placement of a right PICC line with tip in the mid SVC about 5.2 cm above the rubin. The heart remains enlarged. Aorta is normal. Mediastinum is unremarkable. Pulmonary vasculature is prominent with cephalization. Mild diffuse pulmona ry edema is seen. There is moderate atelectasis in the left lung base. Moderate right curvat ure of the thoracic spine is seen. IMPRESSION - Interval placement of right PICC line with t ip in mid SVC about 5.2 cm above rubin. Findings consistent with CHF or fluid overload. The se findings were discussed with infusion services. Dictated and Signed by: Rico Santiago MD Electronically signed: 11/22/2017 10:16 AM ASSESSMENT and PLAN: Active Hospital Problems Diagnosis Insulin dependent diabetes mellitus Peripheral vascular disease Osteomyelitis of right foot Class 1 obesity with serious comorbidity in adult *Sepsis Resolved Hospital Problems Diagnosis Date Noted Date Resolved No resolved problems to display. Acute osteomyelitis - Arrived with WBC 23.6. Lactic acid 1.3. Febrile on 11/19. - R foot ulceration able to be probed to bone, concerning for osteomyelitis. CT chest 11/20 f luid overload, no PNA, extensive coronary artery disease. -blood cx 11/19 NGTD, Urine culture 11/19 10,000 mixed gram positive salvador -Wound culture 11/19 enterobacter aerogenes, MSSA -MRI 11/20 showed 5th metatarsal consistent with osteomyelitis - Tissue culture 11/21 growing GNR - Had I & D/partial 5th metatarsal resection 11/21 - Discussed with antibiotic management team 11/22, will stop vancomycin/cipro and start ertap enem based on cultures, PICC line placed 11/22 IDDM Home regimen: lantus 23 units at night, saxagliptin -Uncontrolled BS in the 300's in the setting of infection/surgery, increase glargine to 30 units nightly, increase to high-dose sliding scale ?CAD No acute symptoms. CT chest shows vascular congestion with severe coronary artery disease. TTE 11/20 showed mod LVH with normal EF with mild apical hypokinesis. -Hold lasix for now, BNP 57, as per TTE -Should be referred with outpatient stress test CVA history -Cont Asa and statin Chronic Pain -Cont norco PRN,gabapentin, cymbalta GERD -Cont pantoprazole Mechanical fall -PT/OT ordered Disposition : Likely to SNF for rehab/IV abx when stable Prophylaxis : heparin Current Facility-Administered Medications: acetaminophen 650 mg Oral Q4H PRN albuterol-ipratropium 3 mL Nebulization RT Q6H aspirin 325 mg Oral Daily atorvaSTATin 40 mg Oral Nightly dextrose 12.5 g Intravenous PRN docusate sodium 200 mg Oral Daily DULoxetine 30 mg Oral BID ertapenem 1 g Intravenous Daily gabapentin 800 mg Oral TID heparin 5,000 Units Subcutaneous 2 times per day HYDROcodone-acetaminophen 1-2 tablet Oral Q4H PRN HYDROmorphone 0.25-1 mg Intravenous Q4H PRN insulin glargine 23 Units Subcutaneous Nightly insulin lispro 0-12 Units Subcutaneous 4x Daily WC and HS ondansetron 4 mg Oral Q6H PRN pantoprazole 40 mg Oral QAM AC phenylephrine-mineral oil-petrolatum Rectal 4x Daily PRN senna 17.2 mg Oral QAM Total time of approximately 25 minutes was spent with the patient and/or patient's family, and/or on the patient's floor/unit, of which more than 50% was spent counseling and/or coord ination the patient's care as outlined above. Justin Reyna 11/22/2017 17:40 [facility] anielle Guillermo, Hatchery Supervisor - 11/22/2017 2:13 PM PDTFormatting of this note might be different from t he original. VANCOMYCIN PER PHARMACY PROTOCOL: AMS/Drug Name - vancomycin, zosyn Patient: Reagan Shepard [id number] Admit: 11/19/2017 13:19 RELEVANT ALLERGIES: none 72 yrs old male patient admitted on 11/19/2017 for sepsis Patient is receiving vancomycin s tarting on 11/19/2017 for bacteremia. 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 No risk factors for MDR organisms. HPI: history of DM, presented with fatigue and slipped wearing socks/falling backwards at h ome w/ left hip/shoulder pain thereafter. No LOC. No dysuria. Fever yesterday, cough with lo ose nonproductive x few days, fatigue and malaise last few days. Chronic right lower alanis wo und [facility]. Antimicrobials - Current Antibiotic Dates of Therapy vancomycin 11/19- ciprofloxacin 11/21- Antimicrobials - Discontinued Antibiotic Dates of Therapy Zosyn 11/19-3 Historical Vancomycin dosing (previous & current encounter): none Micro/Cultures/Diagnostics: Microbiology Results (Last 14 Days by Collected Date with Culture/Sensitivity) Procedure Component Value Units Date/Time Culture, Wound, Smear, w/Anaerobe [[id number]] Collected: 11/21/17 1208 Order Status: Sent Lab Status: In process Updated: 11/21/17 1250 Specimen: Tissue from Toe, Fifth/Small, Right Narrative: The following orders were created for panel order Culture, Wound, Smear, w/Anaerobe. Procedure Abnormality Status --------- ------ Culture, Wound, Smear[[id number]] Preliminary result Culture, Anaerobic[[id number]] In process Please view results for these tests on the individual orders. Culture, Wound, Smear [[id number]] Collected: 11/21/17 1208 Order Status: Completed Lab Status: Preliminary result Updated: 11/22/17 1021 Specimen: Tissue from Toe, Fifth/Small, Right Culture 2+ Lactose Fermenting Gram Negative Bacilli Comment: Identification and susceptibility to follow. Gram Stain Result 2+ White Blood Cells 1+ Epithelial cells 2+ Gram negative rods Culture, Anaerobic [[id number]] Collected: 11/21/17 1208 Order Status: Sent Lab Status: In process Updated: 11/21/17 1250 Specimen: Tissue from Toe, Fifth/Small, Right Respiratory Virus Panel, NAAT [[id number]] Collected: 11/20/17 1257 Order Status: Completed Lab Status: Final result Updated: 11/22/17 1008 Specimen: Tissue from Nasopharynx INFLUENZA A Not Detected Influenza Virus A H1 RNA Not Detected Influenza Virus A H3 RNA Not Detected ADENOVIRUS Not Detected Coronavirus HKU1 Not Detected Coronavirus NL63 Not Detected Coronavirus 229E Not Detected Coronavirus OC43 Not Detected Human Metapneumovirus Not Detected Rhinovirus/Enterovirus Not Detected Influenza A 2009 H1 Not Detected Influenza B Not Detected Parainfluenza 1 Not Detected Parainfluenza 2 Not Detected Parainfluenza 3 Not Detected Parainfluenza 4 Not Detected RSV Not Detected Bordetella pertussis DNA Not Detected Chlamydophila pneumoniae DNA Not Detected Mycoplasma pneumoniae DNA Not Detected Narrative: Performed at: [address] [place] [id number] Heavy Machinery Assembler: Jurgen Costa MD, Phone: [phone] Culture, Wound, Smear [[id number]] (Susceptibility) Collected: 11/20/17 0825 Order Status: Completed Lab Status: Preliminary result Updated: 11/22/17 1204 Specimen: Tissue from Foot, Right Culture 1+ Enterobacter aerogenes Comment: Consider combination therapy for serious infections. This organism is known to possess inducible beta-lactamases. Isolates may become resistant to all cephalosporins after initiation of therapy. Avoid beta-lactam/beta-lactamase inhibito ry combinations. 1+ Staphylococcus aureus Comment: Presumptive identification Identification and susceptibility to follow. Gram Stain Result 1+ White Blood Cells No organisms seen Susceptibility Enterobacter aerogenes Not Specified Cefazolin >=64 ug/mL Resistant Cefoxitin >=64 ug/mL Resistant Ceftazidime <=1 ug/mL Sensitive Ceftriaxone <=1 ug/mL Sensitive Ciprofloxacin <=0.25 ug/mL Sensitive Ertapenem <=0.5 ug/mL Sensitive Gentamicin <=1 ug/mL Sensitive Meropenem <=0.25 ug/mL Sensitive Piperacillin + Tazobactam <=4 ug/mL Sensitive Tobramycin <=1 ug/mL Sensitive Trimethoprim + Sulfamethoxazole <=20 ug/mL Sensitive Culture, Wound, Smear [[id number]] (Susceptibility) Collected: 11/19/172030 Order Status: Completed Lab Status: Final result Updated: 11/22/17 1200 Specimen: Tissue from Leg, Lower, Right Culture 2+ Enterobacter aerogenes Comment: Consider combination therapy for serious infections. This organism is known to possess inducible beta-lactamases. Isolates may become resistant to all cephalosporins after initiation of therapy. Avoid beta-lactam/beta-lactamase inhibito ry combinations. 1+ Staphylococcus aureus Gram Stain Result No white blood cells (PMNs) seen 1+ Gram negative rods Susceptibility Enterobacter aerogenes Not Specified Cefazolin >=64 ug/mL Resistant Cefoxitin >=64 ug/mL Resistant Ceftazidime <=1 ug/mL Sensitive Ceftriaxone <=1 ug/mL Sensitive Ciprofloxacin <=0.25 ug/mL Sensitive Ertapenem <=0.5 ug/mL Sensitive Gentamicin <=1 ug/mL Sensitive Meropenem <=0.25 ug/mL Sensitive Piperacillin + Tazobactam <=4 ug/mL Sensitive Tobramycin <=1 ug/mL Sensitive Trimethoprim + Sulfamethoxazole <=20 ug/mL Sensitive Susceptibility Staphylococcus aureus Not Specified Ciprofloxacin >=8 ug/mL Resistant Clindamycin 0.25 ug/mL Sensitive Levofloxacin >=8 ug/mL Resistant Linezolid 2 ug/mL Sensitive Oxacillin <=0.25 ug/mL Sensitive Penicillin G >=0.5 ug/mL Resistant Rifampin <=0.5 ug/mL Sensitive Tetracycline <=1 ug/mL Sensitive Trimethoprim + Sulfamethoxazole <=10 ug/mL Sensitive Vancomycin <=0.5 ug/mL Sensitive Susceptibility Comments Enterobacter aerogenes A previously reported component [ Ampicillin ] is no longer reported. Culture, Respiratory, Lower, Smear [[id number]] Order Status: Sent Lab Status: No result Specimen: Body Fluid from Sputum, Expectorated Culture, Wound, Smear [[id number]] Order Status: Canceled Lab Status: No result Specimen: Tissue from Leg, Left Culture, Blood [[id number]] (Normal) Collected: 11/19/17 1537 Order Status: Completed Lab Status: Preliminary result Updated: 11/20/17 0351 Specimen: Blood from Peripheral Blood Culture No growth: Monitored continually by instrument for 5 days Culture, Blood [[id number]] (Normal) Collected: 11/19/17 1506 Order Status: Completed Lab Status: Preliminary result Updated: 11/20/17 0321 Specimen: Blood from Peripheral Blood Culture No growth: Monitored continually by instrument for 5 days Culture, Urine [[id number]] Collected: 11/19/17 1416 Order Status: Completed Lab Status: Final result Updated: 11/21/17 0850 Specimen: Urine from Urine, Unspecified Source Culture 10,000 CFU/ml Mixed Gram Positive Salvador Comment: Suggests contamination with urogenital or skin salvador. No further work-up to follow. Relevant cultures from previous admits: none UA: 10,000 CFU/mL mixed gram positive salvador (comment - suggests contamination with urogenit al or skin salvador)- no further work up Admission Wt: Weight: 103.7 kg (228 lb 9.6 oz) Current Wt: Weight: 109.4 kg (241 lb 2.9 oz) Min/Max Temp past 24 hours:Temp Av.2 C (98.9 F) Min: 36.5 C (97.7 F) Max: 3 7.8 C (100 F) Estimated Creatinine Clearance: 82 mL/min (based on SCr of 1.04 mg/dL). Intake/Output Summary (Last 24 hours) at 11/22/17 1413 Last data filed at 11/22/17 1100 Gross per 24 hour Intake 2317 ml Output 12 ml Net 2305 ml Temp: [36.5 C (97.7 F)-37.8 C (100 F)] 37.1 C (98.8 F) Pulse: [85-98] 93 Resp: [17-20] 18 BP: (133-157)/(71-81) 157/81 Recent Labs Lab 11/22/17 0447 11/21/17 0408 11/20/17 1135 11/20/17 0445 11/19/17 1537 11/19/17 1506 WBC 16.1* 15.0* -- 19.4* -- 23.6* CREA 1.04 1.02 -- 0.91 -- 0.76 LACTATE -- -- -- -- 1.3 -- VANCOTROUGH -- 13.6 -- -- -- -- PROCALCITONI -- -- -- 0.08 -- -- CRP -- 165.00* 185.35* -- -- -- ESR -- 67* 59* -- -- -- Imagin/01: CXR - enlarged heart, Probable small bilateral pleural effusions are observed along with moderate left compressive atelectasis Findings consistent with CHF or fluid overload. 11/19: XR Hip - no acute osseous findings 11/19 XR Shoulder - No accute osseous findings 11/20 CT Chest- No definite evidence for focal pneumonia. Findings consistent with CHF or flu id overload. Overlapping pneumonitis cannot entirely be excluded. Extensive coronary calcium . Recommend clinical correlation for possible ischemia heart disease. 11/20 MRI Rt Foot: Soft tissue ulcer along the lateral midfoot with associated signal alterat ion at the base of the fifth metatarsal showing abnormal enhancement, consistent with osteomyelitis. No significant destructive change is observed at this time. There is mild di ffuse edema of the foot suggestive of cellulitis. 11/20 ECHO: no mention of vegetations Date 11/19 11/20 11/21 11/22 11/23 Time of Vanco level -- - 0400 -- Vancomycin level -- - 13.6 -- Serum Creatinine 0.76 0.91 1.0283 1.04 CrCl (mL/min) >100 94 82 Vanco load/bolus 1750 mg -- Vanco dose - current -- 1250 mg q12h 1250 mg q12h 1500 mg q12h Vanco dose - new 1250 mg q12hr 1500 mg q12h 1500 mg q12h Assessment: Vancomycin Day # 4 Other antibiotics: ciprofloxacin Target Trough: 15-20 mcg/ml for bacteremia, now osteo of rt foot WBC: 16.1; Renal: 1.04; Temp: febrile to 100 F overnight; Culture: 11/19 BCX x2: NGTD, wound: enterobacater aerogenes and MSSA, 11/19 wound: GNR (Not pseudomonas), GPC, 11/21 w ound: 2+ lactose fermenting GN bacilli VS: hypertensive to 157/81 and 140/94 Renal function: UOP: difficult to assess, patient incontinent multiple times yesterday 11/21: rt toe amputation 11/22 PICC placement Podiatry: recommended IV abx x 6 weeks, based on bone cultures Spoke with Dr. Bhandari: recommends Ertapenem if once daily dosing regimen preferred for O PINF. Plan: 1. Continue vancomycin 1500 mg IVPB q12h 2. Vancomycin trough ordered for 11/23/2017 @ 0400 (draw 60 minutes prior to hanging the 4t h dose) 3. Serum creatinine DAILY for first 3 days, then at least every 3 days while on vancomycin. 4. Will monitor renal function, clinical status, infection markers daily with troughs and d ose adjustment as needed. References: Vancomycin dosing protocol IDSA guidelines Procalcitonin Algorithm Per P&T-approved Vancomycin Dosing and Monitoring Protocol Electronically signed by: Danielle Guillermo, Hatchery Supervisor 11/22/2017 14:13 Associated attestation - Luther Hampton, PharmD - 11/22/2017 2:26 PM Maylin Gomez 11/22/2017 14:26 Maria De Jesus Contreras RN - 11/22/2017 10:20 AM PDTVascular access team note Following INS standards of care BARD 5fr dual-lumen inserted x 1stick, using US/MST. PICC a dvanced to 45cm and confirmed by cxr- was advanced 2cm (to 45cm total ). Ok to use. ALL lume ns draw BRB briskly and flush easily with NS. SBAR report to ELLIOT Romeo who continues care. T easton you for this referral. Electronically signed by: Maria De Jesus Contreras RN 11/22/2017 10:21 orSimone fraire DPM - 11/22/2017 8:28 AM PDT . Foot & Ankle Surgery Progress Note Simone Aceves DPM Reagan Shepard Age/Gender 72 y.o. male Location [facility] Attending Mil Sandoval MD Hosp Day # 3 PCP Dian Lr NP Date of Surgery: 11/21/17 Post Operative Day: 2 Procedure: I&D with partial 5th met resection R foot Subjective: Pt reports having a headache. Denies f/c/n/v/cp/sob. Objective: VASC: DP is 0/4; PT is 0/4; CFT is 2-3 seconds. 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 Packing in place. Surrounding redness improved. Recent Labs 11/22/17 0447 11/21/17 0408 11/20/17 1135 11/20/17 0445 11/19/17 1506 WBC 16.1* 15.0* -- 19.4* 23.6* HCT 34.6* 35.0* -- 34.5* 37.3* HGB 11.3* 11.4* -- 11.2* 12.2* PLT 263 Adequate | 283 -- 282 278 ESR -- 67* 59* -- -- CRP -- 165.00* 185.35* -- -- GLU 269* 301* -- 249* 243* Microbiology Results (24 hrs) Procedure Component Value Units Date/Time Culture, Wound, Smear, w/Anaerobe [[id number]] Collected: 11/21/17 1208 Order Status: Sent Lab Status: In process Updated: 11/21/17 1250 Specimen: Tissue from Toe, Fifth/Small, Right Narrative: The following orders were created for panel order Culture, Wound, Smear, w/Anaerobe. Procedure Abnormality Status --------- ------ Culture, Wound, Smear[[id number]] In process Culture, Anaerobic[[id number]] In process Please view results for these tests on the individual orders. Culture, Wound, Smear [[id number]] Collected: 11/21/17 1208 Order Status: Sent Lab Status: In process Updated: 11/21/17 1250 Specimen: Tissue from Toe, Fifth/Small, Right Culture, Anaerobic [[id number]] Collected: 11/21/17 1208 Order Status: Sent Lab Status: In process Updated: 11/21/17 1250 Specimen: Tissue from Toe, Fifth/Small, Right Assessment: Reagan Shepard is a 72 y.o. male Postop I&D and partial 5th met resection for osteomyeliti s. Plan: Recommend IV antibiotics based on bone cultures for 6 weeks. Consider wound VAC therapy. Sterile dressing change performed. Packing still in place. Dispo: Likely a SNF Simone Aceves DPM 8:28; 11/22/2017 hadra Walsh, Pharm D - 11/21/2017 1:35 PM PDT VANCOMYCIN PER PHARMACY PROTOCOL: AMS/Drug Name - vancomycin, zosyn Patient: Reagan Shepard [id number] Admit: 11/19/2017 13:19 RELEVANT ALLERGIES: none 72 yrs old male patient admitted on 11/19/2017 for sepsis Patient is receiving vancomycin s tarting on 11/19/2017 for bacteremia. 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 . No risk factors for MDR organisms. HPI: history of DM, presented with fatigue and slipped wearing socks/falling backwards at h ome w/ left hip/shoulder pain thereafter. No LOC. No dysuria. Fever yesterday, cough with lo ose nonproductive x few days, fatigue and malaise last few days. Chronic right lower alanis wo und [facility]. Antimicrobials - Current Antibiotic Dates of Therapy vancomycin 11/19- ciprofloxacin 11/21- Antimicrobials - Discontinued Antibiotic Dates of Therapy Zosyn 11/19-3 Historical Vancomycin dosing (previous & current encounter): none Micro/Cultures/Diagnostics: Microbiology Results (Last 14 Days by Collected Date with Culture/Sensitivity) Procedure Component Value Units Date/Time Culture, Wound, Smear, w/Anaerobe [[id number]] Collected: 11/21/17 120 Order Status: Sent Lab Status: In process Updated: 11/21/17 1250 Specimen: Tissue from Toe, Fifth/Small, Right Narrative: The following orders were created for panel order Culture, Wound, Smear, w/Anaerobe. Procedure Abnormality Status --------- ------ Culture, Wound, Smear[[id number]] In process Culture, Anaerobic[[id number]] In process Please view results for these tests on the individual orders. Culture, Wound, Smear [[id number]] Collected: 11/21/17 120 Order Status: Sent Lab Status: In process Updated: 11/21/17 1250 Specimen: Tissue from Toe, Fifth/Small, Right Culture, Anaerobic [[id number]] Collected: 11/21/171207 Order Status: Sent Lab Status: In process Updated: 11/21/17 1250 Specimen: Tissue from Toe, Fifth/Small, Right Respiratory Virus Panel, NAAT [[id number]] Collected: 11/20/17 1257 Order Status: Sent Lab Status: In process Updated: 11/20/17 1302 Specimen: Tissue from Nasopharynx Culture, Wound, Smear [[id number]] Collected: 11/20/17 0825 Order Status: Completed Lab Status: Preliminary result Updated: 11/21/17 0739 Specimen: Tissue from Foot, Right Culture 1+ Gram Negative Jayesh, NOT Pseudomonas Comment: Identification and susceptibility to follow. 1+ Gram Positive Cocci Comment: Isolating for additional information. Gram Stain Result 1+ White Blood Cells No organisms seen Culture, Wound, Smear [[id number]] (Susceptibility) Collected: 11/19/172030 Order Status: Completed Lab Status: Preliminary result Updated: 11/21/17 0856 Specimen: Tissue from Leg, Lower, Right Culture 2+ Enterobacter aerogenes Comment: Identification and susceptibility to follow. Consider combination therapy for serious infections. This organism is known to possess inducible beta-lactamases. Isolates may become resistant to all cephalosporins after initiation of therapy. Avoid beta-lactam/beta-lactamase inhibito ry combinations. 1+ Coagulase positive Staphylococcus Comment: Identification and susceptibility to follow. Gram Stain Result No white blood cells (PMNs) seen 1+ Gram negative rods Susceptibility Enterobacter aerogenes Not Specified Cefazolin >=64 ug/mL Resistant Cefoxitin >=64 ug/mL Resistant Ceftazidime <=1 ug/mL Sensitive Ceftriaxone <=1 ug/mL Sensitive Ciprofloxacin <=0.25 ug/mL Sensitive Ertapenem <=0.5 ug/mL Sensitive Gentamicin <=1 ug/mL Sensitive Meropenem <=0.25 ug/mL Sensitive Piperacillin + Tazobactam <=4 ug/mL Sensitive Tobramycin <=1 ug/mL Sensitive Trimethoprim + Sulfamethoxazole <=20 ug/mL Sensitive Culture, Respiratory, Lower, Smear [[id number]] Order Status: Sent Lab Status: No result Specimen: Body Fluid from Sputum, Expectorated Culture, Wound, Smear [[id number]] Order Status: Canceled Lab Status: No result Specimen: Tissue from Leg, Left Culture, Blood [[id number]] (Normal) Collected: 11/19/17 1537 Order Status: Completed Lab Status: Preliminary result Updated: 11/20/17 0351 Specimen: Blood from Peripheral Blood Culture No growth: Monitored continually by instrument for 5 days Culture, Blood [[id number]] (Normal) Collected: 11/19/17 1506 Order Status: Completed Lab Status: Preliminary result Updated: 11/20/17 0321 Specimen: Blood from Peripheral Blood Culture No growth: Monitored continually by instrument for 5 days Culture, Urine [[id number]] Collected: 11/19/17 1416 Order Status: Completed Lab Status: Final result Updated: 11/21/17 0850 Specimen: Urine from Urine, Unspecified Source Culture 10,000 CFU/ml Mixed Gram Positive Salvador Comment: Suggests contamination with urogenital or skin salvador. No further work-up to follow. Relevant cultures from previous admits: none UA: pending Admission Wt: Weight: 103.7 kg (228 lb 9.6 oz) Current Wt: Weight: 109.4 kg (241 lb 2.9 oz) Min/Max Temp past 24 hours:Temp Av.1 C (98.7 F) Min: 36.7 C (98.1 F) Max: 3 7.4 C (99.3 F) Estimated Creatinine Clearance: 83 mL/min (based on SCr of 1.02 mg/dL). Intake/Output Summary (Last 24 hours) at 11/21/17 1335 Last data filed at 11/21/17 0944 Gross per 24 hour Intake 1702 ml Output 70 ml Net 1632 ml Temp: [36.7 C (98.1 F)-37.4 C (99.3 F)] 37.1 C (98.8 F) Pulse: [84-92] 88 Resp: [2-24] 19 BP: (139-176)/(75-93) 150/76 Recent Labs Lab 11/21/17 0408 11/20/17 1135 11/20/17 0445 11/19/17 1537 11/19/17 1506 WBC 15.0* -- 19.4* -- 23.6* CREA 1.02 -- 0.91 -- 0.76 LACTATE -- -- -- 1.3 -- VANCOTROUGH 13.6 -- -- -- -- PROCALCITONI -- -- 0.08 -- -- CRP 165.00* 185.35* -- -- -- ESR 67* 59* -- -- -- Imagin/01: CXR - enlarged heart, Probable small bilateral pleural effusions are observed along with moderate left compressive atelectasis Findings consistent with CHF or fluid overload. 11/19: XR Hip - no acute osseous findings 11/19 XR Shoulder - No accute osseous findings 11/20 CT Chest- No definite evidence for focal pneumonia. Findings consistent with CHF or flu id overload. Overlapping pneumonitis cannot entirely be excluded. Extensive coronary calcium . Recommend clinical correlation for possible ischemia heart disease. 11/20 MRI Rt Foot: Soft tissue ulcer along the lateral midfoot with associated signal alterat ion at the base of the fifth metatarsal showing abnormal enhancement, consistent with osteomyelitis. No significant destructive change is observed at this time. There is mild di ffuse edema of the foot suggestive of cellulitis. 11/20 ECHO: no mention of vegetations Date 11/19 11/20 11/21 Time of Vanco level -- - 0400 Vancomycin level -- - 13.6 Serum Creatinine 0.76 0.91 1.0283 CrCl (mL/min) >100 94 Vanco load/bolus 1750 mg Vanco dose - current -- 1250 mg q12h 1250 mg q12h Vanco dose - new 1250 mg q12hr 1500 mg q12h Assessment: Vancomycin Day # 3 Other antibiotics: ciprofloxacin Target Trough: 15-20 mcg/ml for bacteremia, now osteo of rt foot WBC: 15.0; Renal: 1.02; Temp: 101.1; Culture: wound enterobacter aerogenes, +1staph coag positive, GPC; Blood- ngtd; urine-ngtd; Resp-pending VS: WNL Renal function: UOP: 0.1 ml/kg/hr; SCr trending upward; spoke with Dr Jimenez and he wo uld like to continue with vancomycin at this time 11/21: rt toe amputation Plan: 1. Increase vancomycin to 1500 mg IVPB q12h 2. Vancomycin trough ordered for 11/23/2017 @ 0400 (draw 60 minutes prior to hanging the 4t h dose) 3. Serum creatinine DAILY for first 3 days, then at least every 3 days while on vancomycin. 4. Will monitor renal function, clinical status, infection markers daily with troughs and d ose adjustment as needed. References: Vancomycin dosing protocol IDSA guidelines Procalcitonin Algorithm Per P&T-approved Vancomycin Dosing and Monitoring Protocol Electronically signed by: Khadra Walsh, PharmD 11/21/2017 13:35 Nasim Hoff MD - 11/21/2017 11:05 AM PDT [place], [place] HOSPITALIST PROGRESS NOTE Patient: Reagan Shepard : 1945: Age: 72 y.o. MedRec: [id number] Admission date: 11/19/2017 Hospital day # : 2 Physician author: Nasim Jimenez MD Today: 11/21/2017 Allergies: No Known Allergies Current Medications: Current Facility-Administered Medications Medication Dose Route Frequency Provider Last Rate Last Dose acetaminophen (TYLENOL) tablet 650 mg 650 mg Oral Q4H PRN Mil Sandoval MD albuterol-ipratropium 2.5-0.5 mg/3 mL nebulizer solution 3 mL 3 mL Nebulization RT Q6H Mil Sandoval MD 3 mL at 11/21/17926 aspirin tablet 325 mg 325 mg Oral Daily Mil Sandoval MD 325 mg at 11/21/17913 atorvaSTATin (LIPITOR) tablet 40 mg 40 mg Oral Nightly Mil Sandoval MD 40 mg at 05/08 dextrose 50% injection 12.5 g 12.5 g Intravenous PRN Mil Sandoval MD docusate sodium (COLACE) capsule 200 mg 200 mg Oral Daily Mil Sandoval MD 200 mg at 11/20/17 08 DULoxetine (CYMBALTA) DR capsule 30 mg 30 mg Oral BID Mil Sandoval MD 30 mg at 11/21 furosemide (LASIX) injection 20 mg 20 mg Intravenous Daily Nasim Jimenez MD 20 mg at 11/21/17912 gabapentin (NEURONTIN) capsule 800 mg 800 mg Oral TID Mil Sandoval MD 800 mg at 06/05 heparin 5,000 units/mL injection 5,000 Units 5,000 Units Subcutaneous 2 times per day Mil Sandoval MD 5,000 Units at 11/21/17 09 HYDROcodone-acetaminophen (NORCO) 5-325 mg per tablet 1-2 tablet 1-2 tablet Oral Q4H P RN Mil Sandoval MD 1 tablet at 11/20/171954 HYDROmorphone (DILAUDID) injection 0.25-1 mg 0.25-1 mg Intravenous Q4H PRN Mil Sandoval MD insulin glargine (LANTUS SOLOSTAR) 100 units/mL injection (pen) 23 Units 23 Units Subc utaneous Nightly Nasim Jimenez MD 23 Units at 11/20/17 2019 insulin lispro (humaLOG KWIKPEN) 100 units/mL injection (pen) 0-12 Units 0-12 Units Gama bcutaneous 4x Daily WC and HS Mil Sandoval MD 6 Units at 11/21/17 09 pantoprazole (PROTONIX) DR tablet 40 mg 40 mg Oral QAM AC Mil Sandoval MD 40 mg at 0 11/21/17 0623 phenylephrine-mineral oil-petrolatum (PREPARATION H) rectal ointment Rectal 4x Daily PRN Nasim Jimenez MD piperacillin-tazobactam (ZOSYN) 3.375 g in sodium chloride 0.9% 100 mL IVPB 3.375 g In travenous Q8H Mil Sandoval MD 25 mL/hr at 11/21/17 0433 3.375 g at 11/21/17 0433 senna (SENOKOT) tablet 17.2 mg 17.2 mg Oral QAM Mil Sandoval MD 17.2 mg at 11/20/17 0807 vancomycin 1,250 mg in sodium chloride 0.9% 250 mL IVPB 15 mg/kg (Adjusted) Intravenou s Q12H Danielle Montes PharmD 175 mL/hr at 11/21/17 0526 1,250 mg at 11/21/17 0526 vancomycin per pharmacy Other Pharmacy Consult Mil Sandoval MD Current Infusions: Objective Data Point of care glucose Recent Labs Lab 11/21/17 0623 11/21/17 0246 11/20/17 2016 11/20/17 1634 11/20/17 1154 11/20/17 0658 POCGLU 261* 312* 331* 292* 322* 240* Labs last 24 hours Recent Results (from the past 24 hour(s)) C-Reactive Protein Collection Time: 11/20/17 11:35 Result Value Ref Range CRP 185.35 (H) <8.00 mg/L Sedimentation Rate Collection Time: 11/20/17 11:35 Result Value Ref Range ESR 59 (H) <20 mm/hr POC Glucose Collection Time: 11/20/17 11:54 Result Value Ref Range Glucose, POC 322 (H) 70 - 109 mg/dL POC Glucose Collection Time: 11/20/17 16:34 Result Value Ref Range Glucose, POC 292 (H) 70 - 109 mg/dL ECHO Complete Collection Time: 11/20/17 18:00 Result Value Ref Range BASELINE BLOOD PRESSURE 176/86 mmHg Patient Weight (lbs) 241 lbs Patient Height 70 in LVIDd 4.46 cm LA volume 68.02 mL Ascending aorta 3.7 cm AV mean gradient 8.26 mmHg Aortic Valve Area by Continuity VTI 2.02 cm2 MV Area by P 1/2 method 2.28 cm2 IVRT 132.6 msec LVOT diameter 2.13 cm LVOT peak jose roberto 96.31 cm/s LVOT peak VTI 18.86 cm AV VTI 33.3 cm MV peak gradient 4.93 mmHg MV Pressure 1/2 time 96.56 msec LA Volume Index 30 mL/m2 AV LVOT Peak Gradient 3.18 mmHg AV LVOT Mean Gradient 2.16 mmHg LV Diastolic Length 4C 6.52 cm LV Systolic Area PSAX 13.46 cm2 LV Beckett's Biplane EF 69 % AV Acceleration Time 103.6 msec LV ED Volume (Beckett's) 60.04 ml LV ED Volume Index 27 ml/m2 LV ES Volume 18.45 ml LVOT Mean Velocity 67.93 cm/s MV E' Lateral Velocity 5.96 cm/s MV E' Septal Velocity 4.79 cm/s MV Deceleration [place] 336.24 cm/s2 MV Deceleration Time 332.96 msec MV E/A Ratio 0.77 MV Peak A-Wave 143.73 cm/s MV Peak E-Wave 110.98 cm/s AV Mean Velocity 133.92 cm/s LA/Aorta Ratio 1.23 LA Area 17.06 cm2 LA Systolic Pressure 25.28 mmHg MV E/E SEPTAL 23.17 MV E/E LATERAL 18.62 LA Major 0.333 cm LV ES Volume Index 8 ml/m2 LV Area Diastolic 18.83 cm2 Heart Rate 92 Aortic Root Diameter 3.8 cm IVS Diastolic Thickness MM 1.31 cm LVPW Diastolic Thickness MM 1.04 cm AV Cusp Seperation MM 0.59 cm LA Systolic Diameter MM 4.69 cm LVEF-TTE TRANSTHORACIC ECHO 60 % POC Glucose Collection Time: 11/20/17 20:16 Result Value Ref Range Glucose, POC 331 (H) 70 - 109 mg/dL POC Glucose Collection Time: 11/21/17 2:46 Result Value Ref Range Glucose, POC 312 (H) 70 - 109 mg/dL Vancomycin, Trough Collection Time: 11/21/17 4:08 Result Value Ref Range DATE OF LAST DOSE TIME OF LAST DOSE Vancomycin Trough 13.6 <20.0 ug/mL Basic Metabolic Panel Collection Time: 11/21/17 4:08 Result Value Ref Range NA 133 (L) 136 - 149 mmol/L K 4.3 3.5 - 5.1 mmol/L CL 99 98 - 109 mmol/L CO2 25 24 - 31 mmol/L ANION GAP 9 3 - 16 mmol/L GLUCOSE 301 (H) 70 - 109 mg/dL BUN 14 7 - 18 mg/dL Creatinine, Serum/Plasma 1.02 0.60 - 1.30 mg/dL eGFR if not >60 >=60 mL/min/1.73m2 CALCIUM 8.0 (L) 8.3 - 10.5 mg/dL BUN/CREA 13.7 CBC with Differential Collection Time: 11/21/17 4:08 Result Value Ref Range WBC 15.0 (H) 4.0 - 11.0 K/uL RBC 4.72 4.30 - 5.70 M/uL Hgb 11.4 (L) 13.5 - 18.0 g/dL Hct 35.0 (L) 40.0 - 51.0 % MCV 74.1 (L) 83.0 - 101.0 fL MCH 24.1 (L) 28.0 - 35.0 pg MCHC 32.5 32.0 - 36.0 g/dL RDW-CV 15.8 (H) <15.0 % Platelet Count 283 140 - 440 K/uL MPV 8.5 fL % Neutrophils 78.7 45.0 - 82.0 % % Lymphocytes 6.6 (L) 20.0 - 45.0 % % Monocytes 9.7 4.0 - 12.0 % % Eosinophils 3.4 0.0 - 5.0 % % Basophils 1.6 (H) 0.0 - 1.0 % Absolute Neutrophils 11.80 (H) 1.80 - 8.50 K/uL Absolute Lymphocytes 1.00 0.60 - 3.20 K/uL Absolute Monocytes 1.50 (H) 0.00 - 1.00 K/uL Absolute Eosinophils 0.50 (H) 0.00 - 0.40 K/uL Absolute Basophils 0.20 (H) 0.00 - 0.10 K/uL Magnesium Collection Time: 11/21/17 4:08 Result Value Ref Range MG 1.7 (L) 1.8 - 2.5 mg/dL C-Reactive Protein Collection Time: 11/21/17 4:08 Result Value Ref Range CRP 165.00 (H) <8.00 mg/L Sedimentation Rate Collection Time: 11/21/17 4:08 Result Value Ref Range ESR 67 (H) <20 mm/hr B Type Natriuretic Peptide Collection Time: 11/21/17 4:08 Result Value Ref Range BNP 57 <100 pg/mL Slide Review, Peripheral Smear Collection Time: 11/21/17 4:08 Result Value Ref Range WBC MORPHOLOGY Normal Platelet Estimate Adequate Adequate Platelet, Giant Present (A) Not Present HYPOCHROMIA Slight (A) (none) RBC MICROCYTES Slight (A) (none) Anisocytosis Slight (A) (none) POC Glucose Collection Time: 11/21/17 6:23 Result Value Ref Range Glucose, POC 261 (H) 70 - 109 mg/dL Micro results Microbiology Results (72 hrs) Procedure Component Value Units Date/Time Respiratory Virus Panel, NAAT [[id number]] Collected: 11/20/17 1257 Order Status: Sent Lab Status: In process Updated: 11/20/17 1302 Specimen: Tissue from Nasopharynx Culture, Wound, Smear [[id number]] Collected: 11/20/17 0825 Order Status: Completed Lab Status: Preliminary result Updated: 11/21/17 0739 Specimen: Tissue from Foot, Right Culture 1+ Gram Negative Jayesh, NOT Pseudomonas Comment: Identification and susceptibility to follow. 1+ Gram Positive Cocci Comment: Isolating for additional information. Gram Stain Result 1+ White Blood Cells No organisms seen Culture, Wound, Smear [[id number]] (Susceptibility) Collected: 11/19/172030 Order Status: Completed Lab Status: Preliminary result Updated: 11/21/17 0856 Specimen: Tissue from Leg, Lower, Right Culture 2+ Enterobacter aerogenes Comment: Identification and susceptibility to follow. Consider combination therapy for serious infections. This organism is known to possess inducible beta-lactamases. Isolates may become resistant to all cephalosporins after initiation of therapy. Avoid beta-lactam/beta-lactamase inhibito ry combinations. 1+ Coagulase positive Staphylococcus Comment: Identification and susceptibility to follow. Gram Stain Result No white blood cells (PMNs) seen 1+ Gram negative rods Susceptibility Enterobacter aerogenes Not Specified Cefazolin >=64 ug/mL Resistant Cefoxitin >=64 ug/mL Resistant Ceftazidime <=1 ug/mL Sensitive Ceftriaxone <=1 ug/mL Sensitive Ciprofloxacin <=0.25 ug/mL Sensitive Ertapenem <=0.5 ug/mL Sensitive Gentamicin <=1 ug/mL Sensitive Meropenem <=0.25 ug/mL Sensitive Piperacillin + Tazobactam <=4 ug/mL Sensitive Tobramycin <=1 ug/mL Sensitive Trimethoprim + Sulfamethoxazole <=20 ug/mL Sensitive Culture, Blood [[id number]] (Normal) Collected: 11/19/17 1537 Order Status: Completed Lab Status: Preliminary result Updated: 11/20/17 0351 Specimen: Blood from Peripheral Blood Culture No growth: Monitored continually by instrument for 5 days Culture, Blood [[id number]] (Normal) Collected: 11/19/17 1506 Order Status: Completed Lab Status: Preliminary result Updated: 11/20/17 0321 Specimen: Blood from Peripheral Blood Culture No growth: Monitored continually by instrument for 5 days Culture, Urine [[id number]] Collected: 11/19/17 1416 Order Status: Completed Lab Status: Final result Updated: 11/21/17 0850 Specimen: Urine from Urine, Unspecified Source Culture 10,000 CFU/ml Mixed Gram Positive Salvador Comment: Suggests contamination with urogenital or skin salvador. No further work-up to follow. Radiology results Ct Chest Wo Contrast Result Date: 11/20/2017 CT CHEST WO CONTRAST 11/20/2017 2:31 PM HISTORY: Evaluate for pneumonia. COMPARISON: Chest x- ray 11/19/2017. PROTOCOL: Axial images of the chest were obtained. Coronal and sagittal reform ations were acquired. FINDINGS: Neck base is normal. Heart is mildly enlarged. Extensive cor onary calcium is visualized. There is mild to moderate atherosclerosis of the aorta extendin g into the branches. The pulmonary arteries are unremarkable. SVC is normal. No enlarged lym ph nodes are seen in the mediastinum, juan, or axillae. Trachea and esophagus demonstrate no acute findings. Diffuse interstitial thickening are visualized of the bilateral lungs consi stent with pulmonary congestion. Moderate patchy groundglass opacities are seen of the bilat eral lungs consistent with pulmonary edema. These findings are most consistent with CHF or f luid overload. No definite focal pneumonia is observed. Mild to moderate linear atelectasis are in the left lung lingula and left lower lobe. There are cholecystectomy clips. Chest wal l structures are normal. Moderate levoscoliosis of the thoracolumbar spine is present. There is moderate spondylosis. Multilevel mild to moderate disc narrowing are seen with vacuum di sc phenomenon. Motion is observed in the region of the sternum that limits evaluation. IMPRE SSION - No definite evidence for focal pneumonia. Findings consistent with CHF or fluid over load. Overlapping pneumonitis cannot entirely be excluded. Extensive coronary calcium. Recom mend clinical correlation for possible ischemia heart disease. Dictated and Signed by: Rico Santiago MD Electronically signed: 11/20/2017 3:15 PM Xr Chest Ap Portable Result Date: 11/19/2017 XR CHEST AP PORTABLE 11/19/2017 1:47 PM HISTORY: SHOULDER PAIN HIP PAIN. COMPARISON: None. Fi ndings: The heart is enlarged. Aorta is normal. Mediastinum is unremarkable. Pulmonary vascu lature is prominent with cephalization. Mild diffuse pulmonary edema is seen. Probable small bilateral pleural effusions are observed along with moderate left compressive atelectasis. Moderate right curvature of the thoracic spine is seen. IMPRESSION - Findings consistent wit h CHF or fluid overload. Dictated and Signed by: Rico Santiago MD Electronically signed: 11/19 4:17 PM Mri Foot Right W Wo Contrast Result Date: 11/20/2017 MRI FOOT RIGHT W WO CONTRAST 11/20/2017 1:20 PM HISTORY: Evaluate for osteomyelitis. COMPARIS ON: None. PROTOCOL: Sagittal proton density fat sat, sagittal T1, sagittal STIR, axial T1, a xial STIR, coronal proton density fat sat, coronal STIR, coronal T1, coronal T1 fat sat post gadolinium, sagittal T1 fat sat post gadolinium, axial T1 fat sat post gadolinium. The brett ent was administered 10 cc Gadavist. FINDINGS: A soft tissue ulcer is observed along the lat eral midfoot. Associated signal alteration is observed at the base of the fifth metatarsal w ith abnormal enhancement consistent with osteomyelitis. No significant destructive change is observed at this time. There is mild diffuse edema suggestive of cellulitis. The ankle ante rior, posterior, lateral, and Achilles tendons are intact. The plantar fascia images normal signal. The tibiofibular ligaments, talofibular ligaments, calcaneofibular ligament, and del toid ligaments are intact. The sinus tarsi shows normal signal. IMPRESSION - Soft tissue ulc er along the lateral midfoot with associated signal alteration at the base of the fifth meta tarsal showing abnormal enhancement, consistent with osteomyelitis. No significant destructi ve change is observed at this time. There is mild diffuse edema of the foot suggestive of ce llulitis. Dictated and Signed by: Rico Santiago MD Electronically signed: 11/20/2017 3:25 PM Xr Shoulder Left 2 + Vw Result Date: 11/19/2017 XR SHOULDER LEFT 2 + VW 11/19/2017 1:47 PM HISTORY: SHOULDER PAIN HIP PAIN. COMPARISON: None. FINDINGS: There are no acute osseous findings. There are mild degenerative changes of the A C joint. The glenohumeral joint is intact. Bone mineralization is decreased. Soft tissue str uctures are unremarkable. IMPRESSION - Mild degenerative changes of the AC joint. Dictated a nd Signed by: Rico Santiago MD Electronically signed: 11/19/2017 4:18 PM Xr Hip Left 2-3 Views Result Date: 11/19/2017 XR HIP LEFT 2-3 VIEWS 11/19/2017 1:47 PM HISTORY: SHOULDER PAIN HIP PAIN. COMPARISON: None. F INDINGS: The left hip shows no acute findings. There are moderate degenerative changes of th e bilateral hips. Right curvature of the lumbar spine is partially imaged along with moderat e spondylosis. Bone mineralization is decreased. There is moderate atherosclerosis. IMPRESSI ON - No acute osseous findings. Dictated and Signed by: Rico Santiago MD Electronically sign ed: 11/19/2017 4:16 PM Vitals Ranges: Temp: [36.7 C (98.1 F)-37.4 C (99.3 F)] 36.9 C (98.4 F) Pulse: [84-92] 84 Resp: [2-24] 20 BP: (140-176)/(76-93) 140/93 Vitals: Temp: 36.9 C (98.4 F) BP: (!) 140/93 Pulse: 84 Resp: 20 SpO2: 96 % SpO2 96 % on nasal cannula at flow rate 1L/min Subjective Patient reports improvement today. Improved fatigue. Afebrile. Exam Gen Ian - alert, cooperative Head - Normocephalic Eyes - PERRL, conjunctiva/corneas clear ENT - mucous membranes moist Neck - supple Lungs - Mild bibasilar crackles Heart - normal rate, rhythm w/o m/r/g Abdomen - Normoactive bowel sounds Extremities - + RLE lateral foot ulceration Skin - No rashes Neurologic - Alert and oriented x 3. Assessment and Hospital Course Active Hospital Problems Diagnosis Sepsis Resolved Hospital Problems Diagnosis No resolved problems to display. Plan Acute osteomyelitis CXR with poor penetration, vascular congestion. WBC 23.6. Lactic acid 1.3. BNP 101. Procal 0.08. Febrile on 11/19. Patient has chronic leg ulcerations. R foot ulceration able to be prob ed to bone, concerning for osteomyelitis. CT chest 11/20 fluid overload, no PNA, extensive cor onary artery disease. -blood cx 11/19 NGTD, Urine culture 11/19 10,000 mixed gram positive salvador -Wound culture 11/19 enterobacter aerogenes, coagulase negative staph -Blood culture 11/19 NGTD, Urine culture 11/19 NGTD (UA negative) -Cont vancomycin/zosyn 11/19, will need 6 months of abx pending cultures, PICC line ordered -Seen by Dr. Aceves, will be taking to OR for I&D with 5th matatarsal resection R foot, ian reciate assistance with the case -Virus panel ordered in process -MRI 11/20 showed 5th metatarsal consistent with osteomyelitis IDDM Home regimen: lantus 23 units at night, saxagliptin -Cont Lantus 23 units, glucose uncontrolled in setting of infection ?CAD Patient denies CP. CT chest shows vascular congestion with severe coronary artery disease. TTE 11/20 showed mod LVH with normal EF with mild apical hypokinesis. -Hold lasix for now, BNP 57, as per TTE -Should be referred with outpatient stress test CVA history -Cont Asa and statin Chronic Pain -Cont norco PRN, gabapentin, cymbalta GERD -Cont Protonix Mechanical fall -PT/OT ordered PPX: HSQ FEN: Carb Disp: Pending OR tomorrow, will need to order PT/OT Current Facility-Administered Medications: acetaminophen 650 mg Oral Q4H PRN albuterol-ipratropium 3 mL Nebulization RT Q6H aspirin 325 mg Oral Daily atorvaSTATin 40 mg Oral Nightly dextrose 12.5 g Intravenous PRN docusate sodium 200 mg Oral Daily DULoxetine 30 mg Oral BID furosemide 20 mg Intravenous Daily gabapentin 800 mg Oral TID heparin 5,000 Units Subcutaneous 2 times per day HYDROcodone-acetaminophen 1-2 tablet Oral Q4H PRN HYDROmorphone 0.25-1 mg Intravenous Q4H PRN insulin glargine 23 Units Subcutaneous Nightly insulin lispro 0-12 Units Subcutaneous 4x Daily WC and HS pantoprazole 40 mg Oral QAM AC phenylephrine-mineral oil-petrolatum Rectal 4x Daily PRN piperacillin-tazobactam 3.375 g Intravenous Q8H senna 17.2 mg Oral QAM vancomycin 15 mg/kg (Adjusted) Intravenous Q12H vancomycin per pharmacy Other Pharmacy Consult Nasim Jimenez 11/21/2017 11:05 [facility] Nasim Hoff MD - 11/20/2017 10:04 AM PDT [facility] KELLIE GUTIERREZ HOSPITALIST PROGRESS NOTE Patient: Reagan Shepard : 1945: Age: 72 y.o. MedRec: [id number] Admission date: 11/19/2017 Hospital day # : 1 Physician author: Nasim Jimenez MD Today: 11/20/2017 Allergies: No Known Allergies Current Medications: Current Facility-Administered Medications Medication Dose Route Frequency Provider Last Rate Last Dose acetaminophen (TYLENOL) tablet 650 mg 650 mg Oral Q4H PRN Mil Sandoval MD albuterol-ipratropium 2.5-0.5 mg/3 mL nebulizer solution 3 mL 3 mL Nebulization RT Q6H Mil Sandoval MD 3 mL at 11/20/17 0950 aspirin tablet 325 mg 325 mg Oral Daily Mil Sandoval MD 325 mg at 11/20/17 08 atorvaSTATin (LIPITOR) tablet 40 mg 40 mg Oral Nightly Mil Sandoval MD 40 mg at 04/07 dextrose 50% injection 12.5 g 12.5 g Intravenous PRN Mil Sandoval MD docusate sodium (COLACE) capsule 200 mg 200 mg Oral Daily Mil Sandoval MD 200 mg at 11/20/17 08 DULoxetine (CYMBALTA) DR capsule 30 mg 30 mg Oral BID Mil Sandoval MD 30 mg at 11/20 08 gabapentin (NEURONTIN) capsule 800 mg 800 mg Oral TID Mil Sandoval MD 800 mg at 05/08 0806 heparin 5,000 units/mL injection 5,000 Units 5,000 Units Subcutaneous 2 times per day Mil Sandoval MD 5,000 Units at 11/20/17 0804 HYDROcodone-acetaminophen (NORCO) 5-325 mg per tablet 1-2 tablet 1-2 tablet Oral Q4H P RN Mil Sandoval MD 2 tablet at 11/20/17 0336 HYDROmorphone (DILAUDID) injection 0.25-1 mg 0.25-1 mg Intravenous Q4H PRN Mil Sandoval MD insulin glargine (LANTUS SOLOSTAR) 100 units/mL injection (pen) 15 Units 15 Units Subc utaneous Nightly Mil Sandoval MD insulin lispro (humaLOG KWIKPEN) 100 units/mL injection (pen) 0-12 Units 0-12 Units Gama bcutaneous 4x Daily WC and HS Mil Sandoval MD 4 Units at 11/20/17 0814 pantoprazole (PROTONIX) DR tablet 40 mg 40 mg Oral QAM AC Mil Sandoval MD 40 mg at 0 11/20/17 0655 piperacillin-tazobactam (ZOSYN) 3.375 g in sodium chloride 0.9% 100 mL IVPB 3.375 g In travenous Q8H Mil Sandoval MD 25 mL/hr at 11/20/17 0407 3.375 g at 11/20/17 0407 senna (SENOKOT) tablet 17.2 mg 17.2 mg Oral QAM Mil Sanodval MD 17.2 mg at 11/20/17 0807 vancomycin 1,250 mg in sodium chloride 0.9% 250 mL IVPB 15 mg/kg (Adjusted) Intravenou s Q12H Danielle Montes PharmD 175 mL/hr at 11/20/17 0546 1,250 mg at 11/20/17 0546 vancomycin per pharmacy Other Pharmacy Consult Mil Sandoval MD Current Infusions: Objective Data Point of care glucose Recent Labs Lab 11/20/17 0658 11/20/17 0403 11/19/17 2117 11/19/17 1911 11/19/17 1909 POCGLU 240* 253* 309* 333* 346* Labs last 24 hours Recent Results (from the past 24 hour(s)) Urinalysis with Microscopic with Culture if Indicated Collection Time: 11/19/17 14:16 Result Value Ref Range COLOR Yellow Light Yellow, Yellow, Straw CLARITY Clear Clear PH UA 5.0 5.0 - 8.0 Specific [place] 1.017 1.001 - 1.030 PROTEIN UA 30 mg/dL (A) Negative BLOOD UA Negative Negative GLUCOSE UA >=500 mg/dL (A) Negative KETONES UA Negative Negative BILIRUBIN UA Negative Negative NITRITE UA Negative Negative LEUKOCYTES ESTERASE UA Negative Negative UROBILINOGEN UA 2.0 mg/dL (A) 0.2 mg/dL, 1.0 mg/dL, Negative WBC UA 0-2 0 - 2 /HPF RBC UA 0-2 0 - 2 /HPF SQUAMOUS EPITHELIAL UA 0-2 0 - 2 /LPF BACTERIA UA Negative Negative /HPF MUCUS UA Present (A) Negative /LPF URINE COMMENT Urine Culture Not Indicated Culture, Urine Collection Time: 11/19/17 14:16 Result Value Ref Range Culture No growth to date CBC with Differential Collection Time: 11/19/17 15:06 Result Value Ref Range WBC 23.6 (H) 4.0 - 11.0 K/uL RBC 5.06 4.30 - 5.70 M/uL Hgb 12.2 (L) 13.5 - 18.0 g/dL Hct 37.3 (L) 40.0 - 51.0 % MCV 73.7 (L) 83.0 - 101.0 fL MCH 24.2 (L) 28.0 - 35.0 pg MCHC 32.8 32.0 - 36.0 g/dL RDW-CV 15.6 (H) <15.0 % Platelet Count 278 140 - 440 K/uL MPV 8.7 fL % Neutrophils 85.0 (H) 45.0 - 82.0 % % Lymphocytes 5.4 (L) 20.0 - 45.0 % % Monocytes 9.1 4.0 - 12.0 % % Eosinophils 0.2 0.0 - 5.0 % % Basophils 0.3 0.0 - 1.0 % Absolute Neutrophils 20.10 (H) 1.80 - 8.50 K/uL Absolute Lymphocytes 1.30 0.60 - 3.20 K/uL Absolute Monocytes 2.20 (H) 0.00 - 1.00 K/uL Absolute Eosinophils 0.10 0.00 - 0.40 K/uL Absolute Basophils 0.10 0.00 - 0.10 K/uL Basic Metabolic Panel Collection Time: 11/19/17 15:06 Result Value Ref Range NA 132 (L) 136 - 149 mmol/L K 4.6 3.5 - 5.1 mmol/L CL 98 98 - 109 mmol/L CO2 28 24 - 31 mmol/L ANION GAP 6 3 - 16 mmol/L GLUCOSE 243 (H) 70 - 109 mg/dL BUN 16 7 - 18 mg/dL Creatinine, Serum/Plasma 0.76 0.60 - 1.30 mg/dL eGFR if not >60 >=60 mL/min/1.73m2 CALCIUM 8.2 (L) 8.3 - 10.5 mg/dL BUN/CREA 21.1 Culture, Blood Collection Time: 11/19/17 15:06 Result Value Ref Range Culture No growth: Monitored continually by instrument for 5 days Culture, Blood Collection Time: 11/19/17 15:37 Result Value Ref Range Culture No growth: Monitored continually by instrument for 5 days Lactic Acid Collection Time: 11/19/17 15:37 Result Value Ref Range LACTATE 1.3 0.5 - 2.2 mmol/L POC Glucose Collection Time: 11/19/17 19:09 Result Value Ref Range Glucose, POC 346 (H) 70 - 109 mg/dL POC Glucose Collection Time: 11/19/17 19:11 Result Value Ref Range Glucose, POC 333 (H) 70 - 109 mg/dL Culture, Wound, Smear Collection Time: 11/19/17 20:31 Result Value Ref Range Culture 2+ Gram Negative Jayesh, NOT Pseudomonas Culture 1+ Gram Positive Cocci Gram Stain Result No white blood cells (PMNs) seen Gram Stain Result 1+ Gram negative rods POC Glucose Collection Time: 11/19/17 21:17 Result Value Ref Range Glucose, POC 309 (H) 70 - 109 mg/dL POC Glucose Collection Time: 11/20/17 4:03 Result Value Ref Range Glucose, POC 253 (H) 70 - 109 mg/dL Basic Metabolic Panel Collection Time: 11/20/17 4:45 Result Value Ref Range NA 133 (L) 136 - 149 mmol/L K 4.0 3.5 - 5.1 mmol/L CL 101 98 - 109 mmol/L CO2 24 24 - 31 mmol/L ANION GAP 8 3 - 16 mmol/L GLUCOSE 249 (H) 70 - 109 mg/dL BUN 15 7 - 18 mg/dL Creatinine, Serum/Plasma 0.91 0.60 - 1.30 mg/dL eGFR if not >60 >=60 mL/min/1.73m2 CALCIUM 8.0 (L) 8.3 - 10.5 mg/dL BUN/CREA 16.5 CBC with Differential Collection Time: 11/20/17 4:45 Result Value Ref Range WBC 19.4 (H) 4.0 - 11.0 K/uL RBC 4.69 4.30 - 5.70 M/uL Hgb 11.2 (L) 13.5 - 18.0 g/dL Hct 34.5 (L) 40.0 - 51.0 % MCV 73.7 (L) 83.0 - 101.0 fL MCH 23.9 (L) 28.0 - 35.0 pg MCHC 32.4 32.0 - 36.0 g/dL RDW-CV 15.8 (H) <15.0 % Platelet Count 282 140 - 440 K/uL MPV 8.6 fL % Neutrophils 79.9 45.0 - 82.0 % % Lymphocytes 9.3 (L) 20.0 - 45.0 % % Monocytes 9.3 4.0 - 12.0 % % Eosinophils 1.1 0.0 - 5.0 % % Basophils 0.4 0.0 - 1.0 % Absolute Neutrophils 15.50 (H) 1.80 - 8.50 K/uL Absolute Lymphocytes 1.80 0.60 - 3.20 K/uL Absolute Monocytes 1.80 (H) 0.00 - 1.00 K/uL Absolute Eosinophils 0.20 0.00 - 0.40 K/uL Absolute Basophils 0.10 0.00 - 0.10 K/uL Magnesium Collection Time: 11/20/17 4:45 Result Value Ref Range MG 1.8 1.8 - 2.5 mg/dL B Type Natriuretic Peptide Collection Time: 11/20/17 4:45 Result Value Ref Range BNP 101 (H) <100 pg/mL Procalcitonin Collection Time: 11/20/17 4:45 Result Value Ref Range Procalcitonin 0.08 <=0.50 ng/mL Comment POC Glucose Collection Time: 11/20/17 6:58 Result Value Ref Range Glucose, POC 240 (H) 70 - 109 mg/dL Micro results Microbiology Results (72 hrs) Procedure Component Value Units Date/Time Culture, Wound, Smear [[id number]] Collected: 11/20/17 0825 Order Status: Sent Lab Status: In process Updated: 11/20/17 0829 Specimen: Tissue from Foot, Right Culture, Wound, Smear [[id number]] Collected: 11/19/17 203 Order Status: Completed Lab Status: Preliminary result Updated: 11/20/17 09 Specimen: Tissue from Leg, Lower, Right Culture 2+ Gram Negative Jayesh, NOT Pseudomonas Comment: Identification and susceptibility to follow. 1+ Gram Positive Cocci Comment: Isolating for additional information. Gram Stain Result No white blood cells (PMNs) seen 1+ Gram negative rods Culture, Blood [[id number]] (Normal) Collected: 11/19/17 1537 Order Status: Completed Lab Status: Preliminary result Updated: 11/20/17 0351 Specimen: Blood from Peripheral Blood Culture No growth: Monitored continually by instrument for 5 days Culture, Blood [[id number]] (Normal) Collected: 11/19/17 1506 Order Status: Completed Lab Status: Preliminary result Updated: 11/20/17 0321 Specimen: Blood from Peripheral Blood Culture No growth: Monitored continually by instrument for 5 days Culture, Urine [[id number]] (Normal) Collected: 11/19/17 1416 Order Status: Completed Lab Status: Preliminary result Updated: 11/20/17 0831 Specimen: Urine from Urine, Unspecified Source Culture No growth to date Radiology results Xr Chest Ap Portable Result Date: 11/19/2017 XR CHEST AP PORTABLE 11/19/2017 1:47 PM HISTORY: SHOULDER PAIN HIP PAIN. COMPARISON: None. Fi ndings: The heart is enlarged. Aorta is normal. Mediastinum is unremarkable. Pulmonary vascu lature is prominent with cephalization. Mild diffuse pulmonary edema is seen. Probable small bilateral pleural effusions are observed along with moderate left compressive atelectasis. Moderate right curvature of the thoracic spine is seen. IMPRESSION - Findings consistent wit h CHF or fluid overload. Dictated and Signed by: Rico Santiago MD Electronically signed: 11/19 4:17 PM Xr Shoulder Left 2 + Vw Result Date: 11/19/2017 XR SHOULDER LEFT 2 + VW 11/19/2017 1:47 PM HISTORY: SHOULDER PAIN HIP PAIN. COMPARISON: None. FINDINGS: There are no acute osseous findings. There are mild degenerative changes of the A C joint. The glenohumeral joint is intact. Bone mineralization is decreased. Soft tissue str uctures are unremarkable. IMPRESSION - Mild degenerative changes of the AC joint. Dictated a nd Signed by: Rico Santiago MD Electronically signed: 11/19/2017 4:18 PM Xr Hip Left 2-3 Views Result Date: 11/19/2017 XR HIP LEFT 2-3 VIEWS 11/19/2017 1:47 PM HISTORY: SHOULDER PAIN HIP PAIN. COMPARISON: None. F INDINGS: The left hip shows no acute findings. There are moderate degenerative changes of th e bilateral hips. Right curvature of the lumbar spine is partially imaged along with moderat e spondylosis. Bone mineralization is decreased. There is moderate atherosclerosis. IMPRESSI ON - No acute osseous findings. Dictated and Signed by: Rico Santiago MD Electronically sign ed: 11/19/2017 4:16 PM Vitals Ranges: Temp: [36.5 C (97.7 F)-38.4 C (101.1 F)] 36.5 C (97.7 F) Pulse: [81-107] 82 Resp: [16-29] 18 BP: (101-166)/(51-89) 160/84 Vitals: Temp: 36.5 C (97.7 F) BP: 160/84 Pulse: 82 Resp: 18 SpO2: 95 % SpO2 95 % on nasal cannula at flow rate 1L/min Subjective Patient is somnolent at times. Answering questions appropriately. Exam Gen Ian - alert, cooperative Head - Normocephalic Eyes - PERRL, conjunctiva/corneas clear ENT - mucous membranes moist Neck - supple Lungs - Mild bibasilar crackles Heart - normal rate, rhythm w/o m/r/g Abdomen - Normoactive bowel sounds, non-tender non-distended Extremities - RLE with R foot lateral wound probed to bone, wound on alanis Skin - No rashes Neurologic - Alert and oriented x 3 Assessment and Hospital Course Active Hospital Problems Diagnosis Sepsis Resolved Hospital Problems Diagnosis No resolved problems to display. Plan Sepsis 2/2 to possibly RLE osteomyelitis vs CAP CXR with poor penetration, vascular congestion. WBC 23.6. Lactic acid 1.3. BNP 101. Procal 0.08. Febrile on 11/19. Patient has chronic leg ulcerations. R foot ulceration able to be prob ed to bone, concerning for osteomyelitis. -blood cx pending -Wound culture 11/19 GNR, + Cocci -Blood culture 11/19 NGTD, Urine culture 11/19 NGTD (UA negative) -Received vancomycin/zosyn 11/19 -Wound care ordered -Virus panel ordered, sputum collection not performed -Ordered RLE MRI to eval for osteo, called Dr. Aceves (Podiatry) -Ordered CT chest to eval for PNA IDDM Home regimen: lantus 23 units at night, saxagliptin -Lantus 15 units qhs, ISS currently, increased to 23 units, glucose in 200-300s CVA history -Cont Asa and statin Chronic Pain -Cont norco PRN, gabapentin, cymbalta GERD -Cont Protonix Mechanical fall -PT/OT ordered PPX: HSQ FEN: Carb Current Facility-Administered Medications: acetaminophen 650 mg Oral Q4H PRN albuterol-ipratropium 3 mL Nebulization RT Q6H aspirin 325 mg Oral Daily atorvaSTATin 40 mg Oral Nightly dextrose 12.5 g Intravenous PRN docusate sodium 200 mg Oral Daily DULoxetine 30 mg Oral BID gabapentin 800 mg Oral TID heparin 5,000 Units Subcutaneous 2 times per day HYDROcodone-acetaminophen 1-2 tablet Oral Q4H PRN HYDROmorphone 0.25-1 mg Intravenous Q4H PRN insulin glargine 15 Units Subcutaneous Nightly insulin lispro 0-12 Units Subcutaneous 4x Daily WC and HS pantoprazole 40 mg Oral QAM AC piperacillin-tazobactam 3.375 g Intravenous Q8H senna 17.2 mg Oral QAM vancomycin 15 mg/kg (Adjusted) Intravenous Q12H vancomycin per pharmacy Other Pharmacy Consult Nasim Jimenez 11/20/2017 10:05 [facility] Khadra Mac Phar mD - 11/20/2017 9:10 AM PDT VANCOMYCIN PER PHARMACY PROTOCOL: AMS/Drug Name - vancomycin, zosyn Patient: Reagan Shepard [phone] Admit: 11/19/2017 13:19 RELEVANT ALLERGIES: none 72 yrs old male patient admitted on 11/19/2017 for sepsis Patient is receiving vancomycin s tarting on 11/19/2017 for bacteremia. 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 . No risk factors for MDR organisms. HPI: history of DM, presented with fatigue and slipped wearing socks/falling backwards at h ome w/ left hip/shoulder pain thereafter. No LOC. No dysuria. Fever yesterday, cough with lo ose nonproductive x few days, fatigue and malaise last few days. Chronic right lower alanis wo und care x [facility] per [facility]. Antimicrobials - Current Antibiotic Dates of Therapy vancomycin 11/19- zosyn 11/19- Antimicrobials - Discontinued Antibiotic Dates of Therapy Historical Vancomycin dosing (previous & current encounter): none Micro/Cultures/Diagnostics: Microbiology Results (Last 14 Days by Collected Date with Culture/Sensitivity) Procedure Component Value Units Date/Time Culture, Wound, Smear [[id number]] Collected: 11/20/17 0825 Order Status: Sent Lab Status: In process Updated: 11/20/17 08 Specimen: Tissue from Foot, Right Culture, Wound, Smear [[id number]] Collected: 11/19/172030 Order Status: Completed Lab Status: Preliminary result Updated: 11/20/17 09 Specimen: Tissue from Leg, Lower, Right Culture 2+ Gram Negative Jayesh, NOT Pseudomonas Comment: Identification and susceptibility to follow. 1+ Gram Positive Cocci Comment: Isolating for additional information. Gram Stain Result No white blood cells (PMNs) seen 1+ Gram negative rods Culture, Respiratory, Lower, Smear [[id number]] Order Status: Sent Lab Status: No result Specimen: Body Fluid from Sputum, Expectorated Culture, Wound, Smear [[id number]] Order Status: Canceled Lab Status: No result Specimen: Tissue from Leg, Left Culture, Blood [[id number]] (Normal) Collected: 11/19/17 1537 Order Status: Completed Lab Status: Preliminary result Updated: 11/20/17 0351 Specimen: Blood from Peripheral Blood Culture No growth: Monitored continually by instrument for 5 days Culture, Blood [[id number]] (Normal) Collected: 11/19/17 1506 Order Status: Completed Lab Status: Preliminary result Updated: 11/20/17 0321 Specimen: Blood from Peripheral Blood Culture No growth: Monitored continually by instrument for 5 days Culture, Urine [[id number]] (Normal) Collected: 11/19/17 1416 Order Status: Completed Lab Status: Preliminary result Updated: 11/20/17 0831 Specimen: Urine from Urine, Unspecified Source Culture No growth to date Relevant cultures from previous admits: none UA: pending Admission Wt: Weight: 103.7 kg (228 lb 9.6 oz) Current Wt: Weight: 109.4 kg (241 lb 2.9 oz) Min/Max Temp past 24 hours:Temp Av.5 C (99.5 F) Min: 36.5 C (97.7 F) Max: 3 8.4 C (101.1 F) Estimated Creatinine Clearance: 94 mL/min (based on SCr of 0.91 mg/dL). Intake/Output Summary (Last 24 hours) at 11/20/17 0910 Last data filed at 11/20/17 0600 Gross per 24 hour Intake 1220 ml Output 400 ml Net 820 ml Temp: [36.5 C (97.7 F)-38.4 C (101.1 F)] 36.5 C (97.7 F) Pulse: [81-107] 81 Resp: [16-29] 20 BP: (101-166)/(51-89) 160/84 Recent Labs Lab 11/20/17 0445 11/19/17 1537 11/19/17 1506 WBC 19.4* -- 23.6* CREA 0.91 -- 0.76 LACTATE -- 1.3 -- PROCALCITONI 0.08 -- -- Imagin/01: CXR - enlarged heart, Probable small bilateral pleural effusions are observed along with moderate left compressive atelectasis Findings consistent with CHF or fluid overload. 11/19: XR Hip - no acute osseous findings 11/19 XR Shoulder - No accute osseous findings Date 11/192 9/3 Time of Vanco level -- - 0400 Vancomycin level -- - Serum Creatinine 0.76 0.91 CrCl (mL/min) >100 94 Vanco load/bolus 1750 mg Vanco dose - current -- 1250 mg q12h Vanco dose - new 1250 mg q12hr Assessment: Vancomycin Day # 2 Other antibiotics: zosyn Target Trough: 15-20 mcg/ml for bacteremia WBC: 18.6; Renal: 0.91--slight increase; Temp: 101.1; Culture: wound GPR (not pseudomona s), GPC; Blood- ngtd; urine-ngtd; Resp-pending VS: tachypneic, tachycardic Renal function: UOP:no data Plan: 1. Vancomycin load of 1750 mg (~20 mg/kg based on adjBW) IVPB x 1 given on 11/19/2017 @ 164 4, followed by maintenance vancomycin 1250 mg IVPB q12h 2. Vancomycin trough ordered for 11/21/2017 @ 0400 (draw 60 minutes prior to hanging the 4t h dose) 3. Serum creatinine DAILY for first 3 days, then at least every 3 days while on vancomycin. 4. Will monitor renal function, clinical status, infection markers daily with troughs and d ose adjustment as needed. References: Vancomycin dosing protocol IDSA guidelines Procalcitonin Algorithm Per P&T-approved Vancomycin Dosing and Monitoring Protocol Electronically signed by: Khadra Walsh, PharmMariella 11/20/2017 9:10 Kim Leal P harmD - 11/19/2017 6:59 PM PDT VANCOMYCIN PER PHARMACY PROTOCOL: AMS/Drug Name - vancomycin, zosyn Patient: Reagan Shepard [id number] Admit: 11/19/2017 13:19 RELEVANT ALLERGIES: none 72 yrs old male patient admitted on 11/19/2017 for sepsis Patient is receiving vancomycin s tarting on 11/19/2017 for bacteremia. 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 . No risk factors for MDR organisms. HPI: history of DM, presented with fatigue and slipped wearing socks/falling backwards at h ome w/ left hip/shoulder pain thereafter. No LOC. No dysuria. Fever yesterday, cough with lo ose nonproductive x few days, fatigue and malaise last few days. Chronic right lower alanis wo und [facility]. Antimicrobials - Current Antibiotic Dates of Therapy vancomycin 11/19- zosyn 11/19- Antimicrobials - Discontinued Antibiotic Dates of Therapy Historical Vancomycin dosing (previous & current encounter): none Micro/Cultures/Diagnostics: Microbiology Results (Last 14 Days by Collected Date with Culture/Sensitivity) Procedure Component Value Units Date/Time Culture, Respiratory, Lower, Smear [[id number]] Order Status: Sent Lab Status: No result Specimen: Body Fluid from Sputum, Expectorated Culture, Wound, Smear [[id number]] Order Status: Sent Lab Status: No result Specimen: Tissue from Leg, Left Culture, Blood [[id number]] Collected: 11/19/17 1537 Order Status: Sent Lab Status: In process Updated: 11/19/17 1543 Specimen: Blood from Peripheral Blood Culture, Blood [[id number]] Collected: 11/19/17 1506 Order Status: Sent Lab Status: In process Updated: 11/19/17 1511 Specimen: Blood from Peripheral Blood Culture, Urine [[id number]] Collected: 11/19/17 1416 Order Status: Sent Lab Status: In process Updated: 11/19/17 1543 Specimen: Urine from Urine, Unspecified Source Relevant cultures from previous admits: none UA: pending Admission Wt: Weight: 103.7 kg (228 lb 9.6 oz) Current Wt: Weight: 109.4 kg (241 lb 2.9 oz) Min/Max Temp past 24 hours:Temp Av.3 C (100.9 F) Min: 38.1 C (100.6 F) Max: 38.4 C (101.1 F) Estimated Creatinine Clearance: 112 mL/min (based on SCr of 0.76 mg/dL). No intake or output data in the 24 hours ending 11/19/17 185 Temp: [38.1 C (100.6 F)-38.4 C (101.1 F)] 38.1 C (100.6 F) Pulse: [93-107] 98 Resp: [16-29] 24 BP: (101-140)/(51-78) 138/76 Recent Labs Lab 11/19/17 1537 11/19/17 1506 WBC -- 23.6* CREA -- 0.76 LACTATE 1.3 -- Imagin/01: CXR - enlarged heart, Probable small bilateral pleural effusions are observed along with moderate left compressive atelectasis Findings consistent with CHF or fluid overload. 11/19: XR Hip - no acute osseous findings 11/19 XR Shoulder - No accute osseous findings Date 11/19 Time of Vanco level -- Vancomycin level -- Serum Creatinine 0.76 CrCl (mL/min) >100 Vanco load/bolus 1750 mg Vanco dose - current -- Vanco dose - new 1250 mg q12hr Assessment: Vancomycin Day # 1 Other antibiotics: zosyn Target Trough: 15-20 mcg/ml for bacteremia WBC: 23.6; Renal: 0.76; Temp: 101.1; Culture: pending; VS: RR up to 29 Renal function: UOP:no data Plan: 1. Vancomycin load of 1750 mg (~20 mg/kg based on adjBW) IVPB x 1 given on 11/19/2017 @ 164 4, followed by maintenance vancomycin 1250 mg IVPB q12h 2. Vancomycin trough ordered for 11/21/2017 @ 0400 (draw 60 minutes prior to hanging the 4t h dose) 3. Serum creatinine DAILY for first 3 days, then at least every 3 days while on vancomycin. 4. Will monitor renal function, clinical status, infection markers daily with troughs and d ose adjustment as needed. References: Vancomycin dosing protocol IDSA guidelines Procalcitonin Algorithm Per P&T-approved Vancomycin Dosing and Monitoring Protocol Electronically signed by: Kim Greco, PharmD 11/19/2017 18:59 documented in thi s encounter Plan of Treatment + +------+--------+ + + | Name | Type | Priori | Associated Diagnoses | Date/Time | | | | ty | | | + +------+--------+ + + | ED INFORMATION | DONYA | Routin | | 11/19/2017 1:21 PM | | EXCHANGE | | e | | PDT | + +------+--------+ + + documented as of this encounter Procedures + +--------+ + + + | Procedure Name | Priori | Date/Time | Associated Diagnosis | Comments | | | ty | | | | + +--------+ + + + | POC GLUCOSE | Routin | 11/25/2017 | | Results for this | | | e | 4:20 PM | | procedure are in the | | | | PDT | | results section. | + +--------+ + + + | POC GLUCOSE | Routin | 11/25/2017 | | Results for this | | | e | 12:16 PM | | procedure are in the | | | | PDT | | results section. | + +--------+ + + + | POC GLUCOSE | Routin | 11/25/2017 | | Results for this | | | e | 6:56 AM | | procedure are in the | | | | PDT | | results section. | + +--------+ + + + | CBC WITH | Routin | 11/25/2017 | | Results for this | | DIFFERENTIAL | e | 3:24 AM | | procedure are in the | | | | PDT | | results section. | + +--------+ + + + | BASIC METABOLIC | Routin | 11/25/2017 | | Results for this | | PANEL | e | 3:24 AM | | procedure are in the | | | | PDT | | results section. | + +--------+ + + + | POC GLUCOSE | Routin | 11/24/2017 | | Results for this | | | e | 9:20 PM | | procedure are in the | | | | PDT | | results section. | + +--------+ + + + | POC GLUCOSE | Routin | 11/24/2017 | | Results for this | | | e | 5:02 PM | | procedure are in the | | | | PDT | | results section. | + +--------+ + + + | POC GLUCOSE | Routin | 11/24/2017 | | Results for this | | | e | 12:06 PM | | procedure are in the | | | | PDT | | results section. | + +--------+ + + + | POC GLUCOSE | Routin | 11/24/2017 | | Results for this | | | e | 6:39 AM | | procedure are in the | | | | PDT | | results section. | + +--------+ + + + | CBC WITH | Routin | 11/24/2017 | | Results for this | | DIFFERENTIAL | e | 4:26 AM | | procedure are in the | | | | PDT | | results section. | + +--------+ + + + | BASIC METABOLIC | Routin | 11/24/2017 | | Results for this | | PANEL | e | 4:26 AM | | procedure are in the | | | | PDT | | results section. | + +--------+ + + + | POC GLUCOSE | Routin | 11/24/2017 | | Results for this | | | e | 1:37 AM | | procedure are in the | | | | PDT | | results section. | + +--------+ + + + | POC GLUCOSE | Routin | 11/23/2017 | | Results for this | | | e | 7:58 PM | | procedure are in the | | | | PDT | | results section. | + +--------+ + + + | POC GLUCOSE | Routin | 11/23/2017 | | Results for this | | | e | 4:21 PM | | procedure are in the | | | | PDT | | results section. | + +--------+ + + + | POC GLUCOSE | Routin | 11/23/2017 | | Results for this | | | e | 11:09 AM | | procedure are in the | | | | PDT | | results section. | + +--------+ + + + | POC GLUCOSE | Routin | 11/23/2017 | | Results for this | | | e | 6:43 AM | | procedure are in the | | | | PDT | | results section. | + +--------+ + + + | CBC WITH | Routin | 11/23/2017 | | Results for this | | DIFFERENTIAL | e | 4:26 AM | | procedure are in the | | | | PDT | | results section. | + +--------+ + + + | BASIC METABOLIC | Routin | 11/23/2017 | | Results for this | | PANEL | e | 4:26 AM | | procedure are in the | | | | PDT | | results section. | + +--------+ + + + | POC GLUCOSE | Routin | 11/23/2017 | | Results for this | | | e | 3:27 AM | | procedure are in the | | | | PDT | | results section. | + +--------+ + + + | POC GLUCOSE | Routin | 11/22/2017 | | Results for this | | | e | 9:19 PM | | procedure are in the | | | | PDT | | results section. | + +--------+ + + + | POC GLUCOSE | Routin | 11/22/2017 | | Results for this | | | e | 5:21 PM | | procedure are in the | | | | PDT | | results section. | + +--------+ + + + | POC GLUCOSE | Routin | 11/22/2017 | | Results for this | | | e | 12:09 PM | | procedure are in the | | | | PDT | | results section. | + +--------+ + + + | XR CHEST AP PORTABLE | MAR[facility] | 11/22/2017 | Sepsis, due to | Results for this | | | | 10:07 AM | unspecified organism | procedure are in the | | | | PDT | ([facility]) | results section. | + +--------+ + + + | POC GLUCOSE | Routin | 11/22/2017 | | Results for this | | | e | 6:29 AM | | procedure are in the | | | | PDT | | results section. | + +--------+ + + + | CBC WITH | Routin | 11/22/2017 | | Results for this | | DIFFERENTIAL | e | 4:47 AM | | procedure are in the | | | | PDT | | results section. | + +--------+ + + + | MAGNESIUM | Routin | 11/22/2017 | | Results for this | | | e | 4:47 AM | | procedure are in the | | | | PDT | | results section. | + +--------+ + + + | BASIC METABOLIC | Routin | 11/22/2017 | | Results for this | | PANEL | e | 4:47 AM | | procedure are in the | | | | PDT | | results section. | + +--------+ + + + | POC GLUCOSE | Routin | 11/22/2017 | | Results for this | | | e | 4:46 AM | | procedure are in the | | | | PDT | | results section. | + +--------+ + + + | POC GLUCOSE | Routin | 11/21/2017 | | Results for this | | | e | 9:18 PM | | procedure are in the | | | | PDT | | results section. | + +--------+ + + + | POC GLUCOSE | Routin | 11/21/2017 | | Results for this | | | e | 4:35 PM | | procedure are in the | | | | PDT | | results section. | + +--------+ + + + | CULTURE, WOUND, | Routin | 11/21/2017 | | Results for this | | SMEAR | e | 12:08 PM | | procedure are in the | | | | PDT | | results section. | + +--------+ + + + | CULTURE, WOUND, | Routin | 11/21/2017 | | Results for this | | SMEAR, W/ANAEROBE | e | 12:08 PM | | procedure are in the | | | | PDT | | results section. | + +--------+ + + + | CULTURE, ANAEROBIC | Routin | 11/21/2017 | | Results for this | | | e | 12:08 PM | | procedure are in the | | | | PDT | | results section. 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 | + +--------+ + + + | POC GLUCOSE | Routin | 11/21/2017 | | Results for this | | | e | 6:23 AM | | procedure are in the | | | | PDT | | results section. | + +--------+ + + + | SLIDE REVIEW, | Routin | 11/21/2017 | | Results for this | | PERIPHERAL SMEAR | e | 4:08 AM | | procedure are in the | | | | PDT | | results section. | + +--------+ + + + | SEDIMENTATION RATE | Routin | 11/21/2017 | | Results for this | | | e | 4:08 AM | | procedure are in the | | | | PDT | | results section. | + +--------+ + + + | CBC WITH | Routin | 11/21/2017 | | Results for this | | DIFFERENTIAL | e | 4:08 AM | | procedure are in the | | | | PDT | | results section. | + +--------+ + + + | C-REACTIVE PROTEIN | Routin | 11/21/2017 | | Results for this | | | e | 4:08 AM | | procedure are in the | | | | PDT | | results section. | + +--------+ + + + | B TYPE NATRIURETIC | Routin | 11/21/2017 | | Results for this | | PEPTIDE | e | 4:08 AM | | procedure are in the | | | | PDT | | results section. | + +--------+ + + + | MAGNESIUM | Routin | 11/21/2017 | | Results for this | | | e | 4:08 AM | | procedure are in the | | | | PDT | | results section. | + +--------+ + + + | VANCOMYCIN, TROUGH | Timed | 11/21/2017 | | Results for this | | | | 4:08 AM | | procedure are in the | | | | PDT | | results section. | + +--------+ + + + | BASIC METABOLIC | Routin | 11/21/2017 | | Results for this | | PANEL | e | 4:08 AM | | procedure are in the | | | | PDT | | results section. | + +--------+ + + + | POC GLUCOSE | Routin | 11/21/2017 | | Results for this | | | e | 2:46 AM | | procedure are in the | | | | PDT | | results section. | + +--------+ + + + | SURGICAL PATHOLOGY | Routin | 11/21/2017 | | Results for this | | EXAM | e | 12:00 AM | | procedure are in the | | | | PDT | | results section. | + +--------+ + + + | POC GLUCOSE | Routin | 11/20/2017 | | Results for this | | | e | 8:16 PM | | procedure are in the | | | | PDT | | results section. | + +--------+ + + + | ECHO COMPLETE | Routin | 11/20/2017 | | Results for this | | | e | 6:00 PM | | procedure are in the | | | | PDT | | results section. | + +--------+ + + + | POC GLUCOSE | Routin | 11/20/2017 | | Results for this | | | e | 4:34 PM | | procedure are in the | | | | PDT | | results section. | + +--------+ + + + | CT CHEST WO CONTRAST | Routin | 11/20/2017 | | Results for this | | | e | 2:31 PM | | procedure are in the | | | | PDT | | results section. | + +--------+ + + + | MRI FOOT RIGHT W WO | Routin | 11/20/2017 | | Results for this | | CONTRAST | e | 2:14 PM | | procedure are in the | | | | PDT | | results section. | + +--------+ + + + | RESPIRATORY VIRUS | Routin | 11/20/2017 | | Results for this | | PANEL, NAAT | e | 12:57 PM | | procedure are in the | | | | PDT | | results section. | + +--------+ + + + | POC GLUCOSE | Routin | 11/20/2017 | | Results for this | | | e | 11:54 AM | | procedure are in the | | | | PDT | | results section. | + +--------+ + + + | SEDIMENTATION RATE | Routin | 11/20/2017 | | Results for this | | | e | 11:35 AM | | procedure are in the | | | | PDT | | results section. | + +--------+ + + + | C-REACTIVE PROTEIN | Routin | 11/20/2017 | | Results for this | | | e | 11:35 AM | | procedure are in the | | | | PDT | | results section. | + +--------+ + + + | CULTURE, WOUND, | Routin | 11/20/2017 | | Results for this | | SMEAR | e | 8:25 AM | | procedure are in the | | | | PDT | | results section. | + +--------+ + + + | POC GLUCOSE | Routin | 11/20/2017 | | Results for this | | | e | 6:58 AM | | procedure are in the | | | | PDT | | results section. | + +--------+ + + + | PROCALCITONIN, SERUM | Routin | 11/20/2017 | | Results for this | | | e | 4:45 AM | | procedure are in the | | | | PDT | | results section. | + +--------+ + + + | CBC WITH | Routin | 11/20/2017 | | Results for this | | DIFFERENTIAL | e | 4:45 AM | | procedure are in the | | | | PDT | | results section. | + +--------+ + + + | B TYPE NATRIURETIC | Routin | 11/20/2017 | | Results for this | | PEPTIDE | e | 4:45 AM | | procedure are in the | | | | PDT | | results section. | + +--------+ + + + | MAGNESIUM | Routin | 11/20/2017 | | Results for this | | | e | 4:45 AM | | procedure are in the | | | | PDT | | results section. | + +--------+ + + + | BASIC METABOLIC | Routin | 11/20/2017 | | Results for this | | PANEL | e | 4:45 AM | | procedure are in the | | | | PDT | | results section. | + +--------+ + + + | POC GLUCOSE | Routin | 11/20/2017 | | Results for this | | | e | 4:03 AM | | procedure are in the | | | | PDT | | results section. | + +--------+ + + + | POC GLUCOSE | Routin | 11/19/2017 | | Results for this | | | e | 9:17 PM | | procedure are in the | | | | PDT | | results section. | + +--------+ + + + | JESSI SNIDER, | Routin | 11/19/2017 | | Results for this | | SMEAR | e | 8:31 PM | | procedure are in the | | | | PDT | | results section. | + +--------+ + + + | POC GLUCOSE | Routin | 11/19/2017 | | Results for this | | | e | 7:11 PM | | procedure are in the | | | | PDT | | results section. | + +--------+ + + + | POC GLUCOSE | Routin | 11/19/2017 | | Results for this | | | e | 7:09 PM | | procedure are in the | | | | PDT | | results section. | + +--------+ + + + | CULTURE, BLOOD | STAT | 11/19/2017 | | Results for this | | | | 3:37 PM | | procedure are in the | | | | PDT | | results section. | + +--------+ + + + | LACTIC ACID | STAT | 11/19/2017 | | Results for this | | | | 3:37 PM | | procedure are in the | | | | PDT | | results section. | + +--------+ + + + | CULTURE, BLOOD | STAT | 11/19/2017 | | Results for this | | | | 3:06 PM | | procedure are in the | | | | PDT | | results section. | + +--------+ + + + | CBC WITH | STAT | 11/19/2017 | | Results for this | | DIFFERENTIAL | | 3:06 PM | | procedure are in the | | | | PDT | | results section. | + +--------+ + + + | BASIC METABOLIC | STAT | 11/19/2017 | | Results for this | | PANEL | | 3:06 PM | | procedure are in the | | | | PDT | | results section. | + +--------+ + + + | XR HIP LEFT 2-3 | STAT | 11/19/2017 | | Results for this | | VIEWS | | 2:36 PM | | procedure are in the | | | | PDT | | results section. | + +--------+ + + + | XR SHOULDER LEFT 2 + | STAT | 11/19/2017 | | Results for this | | VW | | 2:36 PM | | procedure are in the | | | | PDT | | results section. | + +--------+ + + + | XR CHEST AP PORTABLE | STAT | 11/19/2017 | | Results for this | | | | 2:36 PM | | procedure are in the | | | | PDT | | results section. | + +--------+ + + + | STREPTOCOCCUS | Add-On | 11/19/2017 | | Results for this | | PNEUMONIAE AG, URINE | | 2:16 PM | | procedure are in the | | | | PDT | | results section. | + +--------+ + + + | URINALYSIS WITH | STAT | 11/19/2017 | | Results for this | | MICROSCOPIC WITH | | 2:16 PM | | procedure are in the | | CULTURE IF INDICATED | | PDT | | results section. | + +--------+ + + + | CULTURE, URINE | STAT | 11/19/2017 | | Results for this | | | | 2:16 PM | | procedure are in the | | | | PDT | | results section. | + +--------+ + + + | ED INFORMATION | Routin | 11/19/2017 | | | | EXCHANGE | e | 1:21 PM | | | | | | PDT | | | + +--------+ + + + +---+--------+ | | | | | Proced | | | ure | | | Note - | | | Elle, | | | Lab In | | | | | | Hlseve | | | n - | | | | | | 2017 | | | 1:22 | | | PM PDT | | | | | | Format | | | ting | | | of | | | this | | | note | | | might | | | be | | | differ | | | ent | | | from | | | the | | | origin | | | al.ELLE | | | E?NOTI | | | FICATI | | | ON?/ | | | | | | 8 | | | 13:19? | | | HUESTI | | | ES, | | | REAGAN | | | K?MRN: | | | | | | [id number] | | | [id number] | | | his | | | patien | | | t has | | | regist | | | ered | | | at the | | | | | | Provid | | [facility]ce | | [facility] | | | | | | Emerge | | | ncy | | | Depart | | | ment | | | For | | | more | | | inform | | | ation | | | visit: | | | | | | https: | | | //secu | | | [email or web address] | | | ecarep | | | [email or web address] | | | m/brett | | | [email or web address] | | | [id number] | | | [phone] | | | [phone] | | | [phone] | | | [phone] | | | [phone] | | | Securi | | | ty | | | Events | | | No | | | recent | | | | | | Securi | | | ty | | | Events | | | | | | curren | | | tly on | | | | | | fileED | | | Care | | | Guidel | | | inesTh | | | ere | | | are | | | curren | | | tly no | | | ED | | | Care | | | Guidel | | | elio | | | in | | | DONYA | | | for | | | this | | | patien | | | t. | | | Please | | | check | | | your | | | facili | | | ty's | | | medica | | | l | | | record | | | s | | | system | | | .Recen | | | t | | | Emerge | | | ncy | | | Depart | | | ment | | | Visit | | | Summar | | | yAdmit | | | Date | | | Facili | | | ty | | | City | | | State | | | Type | | | Major | | | Type | | | Diagno | | | ses or | | | Chief | | | | | | Compla | | | int | | | Sep 1, | | | 2018 | | | Prov[facility] | [facility] en[facility] | [facility] [place] | | | [place] | | | Emerge | | | ncy | | | Emerge | | | ncy | | | Aug | | | 12, | | | 2018 | | | [facility] | | | [place] | | | [place] | | | Emerge | | | ncy | | | Emerge | | | ncy | | | | | | Person | | | al | | | histor | | | y of | | | nicoti | | | ne | | | depend | | | ence | | | | | | Other | | | injury | | | of | | | unspec | | | ified | | | body | | | region | | | , | | | initia | | | l | | | encoun | | | ter | | | Local | | | | | | infect | | | ion of | | | the | | | skin | | | and | | | subcut | | | aneous | | | | | | tissue | | | , | | | unspec | | | ified | | | | | | Type 2 | | | | | | diabet | | | es | | | mellit | | | us | | | withou | | | t | | | compli | | | cation | | | s | | | Long | | | term | | | (curre | | | nt) | | | use of | | | | | | insuli | | | n | | | Long | | | term | | | (curre | | | nt) | | | use of | | | | | | aspiri | | | n | | | Unspec | | | ified | | | injury | | | of | | | right | | | lower | | | leg, | | | initia | | | l | | | encoun | | | ter | | | Other | | | long | | | term | | | (curre | | | nt) | | | drug | | | therap | | | y | | | Exposu | | | re to | | | other | | | specif | | | ied | | | factor | | | s, | | | initia | | | l | | | encoun | | | ter | | | E.D. | | | Visit | | | Count | | | (12 | | | mo.)Fa | | | cility | | | | | | Visits | | | Low | | | Acuity | | | | | | Provid | | | ence | | | [facility] | | | [facility] | | | 1 0 | | [facility] | | | al 1 0 | | | Total | | | 2 0 | | | Note: | | | Visits | | | | | | indica | | | te | | | total | | | known | | | visits | | | . | | | Medica | | | id Low | | | | | | Acuity | | | Dx | | | are | | | the | | | number | | | of | | | primar | | | y | | | diagno | | | ses on | | | the | | | Medica | | | id's | | | Low | | | Acuity | | | dx | | | list. | | | | | | Recent | | | | | | Inpati | | | ent | | | Visit | | | Summar | | | yNo | | | record | | | ed | | | inpati | | | ent | | | visits | | | . PDMP | | | | | | Report | | | Rx | | | Detail | | | s (6 | | | Mo.)Fi | | | ll | | | Date | | | Drug | | | Descri | | | ption | | | Qty. | | | Prescr | | | iber | | | CS MED | | | | | | 2018-0 | | | 8-13 | | | HYDROC | | | ODONE- | | | ACETAM | | | IN | | | 10-325 | | | MG | | | 112 | | | TIMOTH | | | Y | | | WALKER | | | 2 40 | | | 2018-0 | | | 7-02 | | | HYDROC | | | ODONE- | | | ACETAM | | | IN | | | 10-325 | | | MG | | | 112 | | | TIMOTH | | | Y | | | WALKER | | | 2 40 | | | 2018-0 | | | 5-29 | | | HYDROC | | | ODONE- | | | ACETAM | | | IN | | | 10-325 | | | MG | | | 112 | | | TIMOTH | | | Y | | | WALKER | | | 2 40 | | | 2018-0 | | | 3-16 | | | HYDROC | | | ODONE- | | | ACETAM | | | IN | | | 10-325 | | | MG | | | 112 | | | TIMOTH | | | Y | | | WALKER | | | 2 40 | | | Rx | | | Summar | | | y (12 | | | Mo.)Me | | | tric | | | Count | | | CS | | | II-V | | | Rx 9 | | | CS-II | | | Rx 9 | | | Quanti | | | ty | | | Dispen | | | sed | | | 1,008 | | | Unique | | | | | | Prescr | | | ibers | | | 1 | | | Unique | | | | | | Pharma | | | cies 1 | | | | | | Benzos | | | 0 | | | Opioid | | | s 9 | | | Long | | | Acting | | | | | | Opioid | | | s 0 | | | Care | | | Provid | | | ersPro | | | vider | | | PRC | | | Type | | | Phone | | | Fax | | | Servic | | | e | | | Dates | | | Oltman | | | , | | | Leonard | | | H DO | | | Treatm | | | ent | | | Curren | | | t | | | Criter | | | ia met | | | | | | PDMPKn | | | own | | | Aliase | | | sNo | | | known | | | aliase | | | s. The | | | above | | | | | | inform | | | ation | | | is | | | provid | | | ed for | | | the | | | sole | | | purpos | | | e of | | | patien | | | t | | | treatm | | | ent. | | | Use of | | | this | | | inform | | | ation | | | beyond | | | the | | | terms | | | of | | | Data | | | Sharin | | | g | | | Memora | | | ndum | | | of | | | Unders | | | tandin | | | g and | | | Licens | | | e | | | Agreem | | | ent is | | | | | | prohib | | | ited. | | | In | | | certai | | | n | | | cases | | | not | | | all | | | visits | | | may | | | be | | | repres | | | ented. | | | | | | Consul | | | t the | | | aforem | | | ention | | | ed | | | facili | | | ties | | | for | | | additi | | | onal | | | inform | | | ation. | | | ? | | | 2017 | | | Collec | | | tive | | | Medica | | | l | | | [employer] | | | logies | | | , [employer] | | | - | | | [place] | | | [place] | | | [place], | | | [place] - | | | [email or web address] | | | ollect | | | ivemed | | | icalte | | | [email or web address] | | | | +---+--------+ documented in this encounter Results POC Glucose (11/25/2017 4:20 PM PDT) + +---------+ + + + | Component | Value | Ref Range | Performed | Pathologist | | | | | At | Signature | + +---------+ + + + | Glucose, | 150 (H) | 70 - 109 mg/dL | [facility] | [facility] | | | | | | [facility] | | | | | | [facility] - | | | | | | LABORATORY | | + +---------+ + + + + + | Specimen | + + | Blood | + + + + + + + | Performing | Address | City/State/Zipcode | Phone Number | | Organization | | | | + + + + + | [facility] | [address] | [place] | [phone] | | [facility] | | [address] | | | - LABORATORY | | | | + + + + + POC Glucose (11/25/2017 12:16 PM PDT) + +---------+ + + + | Component | Value | Ref Range | Performed | Pathologist | | | | | At | Signature | + +---------+ + + + | Glucose, | 196 (H) | 70 - 109 mg/dL | [facility] | | | POC | | | [facility] | | | | | | [facility] | | | | | | C[facility] - | | | | | | LABORATORY | | + +---------+ + + + + + | Specimen | + + | Blood | + + + + + + + | Performing | Address | City/State/Zipcode | Phone Number | | Organization | | | | + + + + + | [facility] | [address] | [place] | [phone] | | [facility] | | [address] | | | - LABORATORY | | | | + + + + + POC Glucose (11/25/2017 6:56 AM PDT) + +---------+ + + + | Component | Value | Ref Range | Performed | Pathologist | | | | | At | Signature | + +---------+ + + + | Glucose, | 217 (H) | 70 - 109 mg/dL | [facility] | | | POC | | | [facility] | | | | | | [facility] | | | | | | CENTER - | | | | | | LABORATORY | | + +---------+ + + + + + | Specimen | + + | Blood | + + + + + + + | Performing | Address | City/State/Zipcode | Phone Number | | Organization | | | | + + + + + | [facility] [facility] | [address] | [place] | [phone] | | [facility] | | [address] | | | - LABORATORY | | | | + + + + + Basic Metabolic Panel (11/25/2017 3:24 AM PDT) + + + + + + | Component | Value | Ref Range | Performed | Pathologist | | | | | At | Signature | + + + + + + | Na | 133 (L) | 136 - 149 | [facility] | | | | | mmol/L | [facility] | | | [facility] | [facility] | | | [facility] - | | | | | | LABORATORY | | + + + + + + | K | 4.6 | 3.5 - 5.1 | [facility] | | | | | mmol/L | [facility] | | [facility] | [facility] | | | | | | [facility] - | | | | | | LABORATORY | | + + + + + + | Cl | 98 | 98 - 109 mmol/L | [facility] | | | | | | [facility] | [facility] | [facility] | | | | | | C[facility] - | | | | | | LABORATORY | | + + + + + + | CO2 | 27 | 24 - 31 mmol/L | [facility] | | | | | | [facility] | [facility] | | | | | | C[facility] - | | | | | | LABORATORY | | + + + + + + | Anion Gap | 8 | 3 - 16 mmol/L | [facility] | | | | | | [facility] | | [facility] | [facility] | | | | | | C[facility] - | | | | | | LABORATORY | | + + + + + + | Glucose | 255 (H) | 70 - 109 mg/dL | [facility] | | | | | | [facility] | | [facility] | [facility] | | [facility] | | | [facility] - | | | | | | LABORATORY | | + + + + + + | BUN | 15 | 7 - 18 mg/dL | [facility] | | | | | | [facility] | | | [facility] | [facility] | | [facility] | [facility] | [facility] - | | | | | | LABORATORY | | + + + + + + | Creatinine | 0.91 | 0.60 - 1.30 | [facility] | | | | | mg/dL | [facility] | | | | | | [facility] | | | | | | CENTER - | | | | | | LABORATORY | | + + + + + + | eGFR if not | >60Comment: GLOMERULAR | >=60 | [facility] | | | | FILTRATION | mL/min/1.73m2 | [facility] | | | [place]ANISH | RATE,ESTIMATED | | MEDICAL | | | | mL/min/1.45k4Okjb than | | CENTER - | | | | 60 Chronic kidney | | LABORATORY | | | | disease,if found over a | | | | | | 3-month period.Less than | | | | | | 15 Kidney failureFor | | | | | | | | | | | | Americans,multiply the | | | | | | calculated GFR by 1.21. | | | | | | | | | | + + + + + + | Calcium | 8.1 (L) | 8.3 - 10.5 | [facility] | | | | | mg/dL | [facility] | | | | | | [facility] | | | | | | CENTER - | | | | | | LABORATORY | | + + + + + + | BUN/Creatin | 16.5 | | [facility] | | | ine Ratio | | [...] | [facility] | [address] | [place] | [phone] | | [facility] | | [address] | | | - LABORATORY | | | | + + + + + CBC with Differential (11/25/2017 3:24 AM PDT) + + + + + + | Component | Value | Ref Range | Performed | Pathologist | | | | | At | Signature | + + + + + + | WBC | 14.8 (H) | 4.0 - 11.0 K/uL | [facility] | | | | | [facility] | [facility] | [facility] | | | | | | [facility] - | | | | | | LABORATORY | | + + + + + + | RBC | 4.60 | 4.30 - 5.70 | [facility] | | | | | M/uL | [facility] | | | [facility] | [facility] | | | | | | CENTER - | | | | | | LABORATORY | | + + + + + + | Hemoglobin | 11.0 (L) | 13.5 - 18.0 | [facility] | | | | | g/dL | [facility] | | | [facility] | [facility] | | | | | | CENTER - | | | | | | LABORATORY | | + + + + + + | Hematocrit | 34.1 (L) | 40.0 - 51.0 % | [facility] | | | | | [facility] | [facility] | [facility] | | | | | | C[facility] - | | | | | | LABORATORY | | + + + + + + | MCV | 74.0 (L) | 83.0 - 101.0 fL | [facility] | | | | | | [facility] | [facility] | [facility] | | | | | | C[facility] - | | | | | | LABORATORY | | + + + + + + | MCH | 23.8 (L) | 28.0 - 35.0 pg | [facility] | | | | | | [facility] | | [facility] | [facility] | | | | | | C[facility] - | | | | | | LABORATORY | | + + + + + + | MCHC | 32.2 | 32.0 - 36.0 | [facility] | | | | | g/dL | [facility] | | | [facility] | [facility] | | | | | | CENTER - | | | | | | LABORATORY | | + + + + + + | RDW-CV | 15.9 (H) | <15.0 % | [facility] | | | | | [facility] | | | [facility] | [facility] | | | | | | CENTER - | | | | | | LABORATORY | | + + + + + + | Platelet | 312 | 140 - 440 K/uL | [facility] | | | Count | | | [facility] | | | | [facility] | [facility] | | | | | | CENTER - | | | | | | LABORATORY | | + + + + + + | MPV | 8.3 | fL | [facility] | | | | | | [facility] | | | [facility] | [facility] | | | | | | CENTER - | | | | | | LABORATORY | | + + + + + + | % | 78.2 | 45.0 - 82.0 % | [facility] | | | Neutrophils | | | [facility] | | | | | | [facility] | | | | | | CENTER - | | | | | | LABORATORY | | + + + + + + | % | 9.3 (L) | 20.0 - 45.0 % | [facility] | | | Lymphocytes | | | [facility] | | | | | | [facility] | | | | | | CENTER - | | | | | | LABORATORY | | + + + + + + | % Monocytes | 8.4 | 4.0 - 12.0 % | [facility] | | | | | | [facility] | | | [facility] | [facility] | | | | | | CENTER - | | | | | | LABORATORY | | + + + + + + | % | 3.3 | 0.0 - 5.0 % | [facility] | | | Eosinophils | | | [facility] | | | | | | [facility] | | | | | | CENTER - | | | | | | LABORATORY | | + + + + + + | % Basophils | 0.8 | 0.0 - 1.0 % | [facility] | | | | | | [facility] | | | [facility] | [facility] | | | | | | CENTER - | | | | | | LABORATORY | | + + + + + + | Absolute | 11.60 (H) | 1.80 - 8.50 | [facility] | | | Neutrophils | | K/uL | [facility] | | | | [facility] | [facility] | | | | | | CENTER - | | | | | | LABORATORY | | + + + + + + | Absolute | 1.40 | 0.60 - 3.20 | [facility] | | | Lymphocytes | | K/uL | [facility] | | | [facility] | [facility] | | | | | | CENTER - | | | | | | LABORATORY | | + + + + + + | Absolute | 1.20 (H) | 0.00 - 1.00 | [facility] | | | Monocytes | | K/uL | [facility] | | | | | | [facility] | | | | | | CENTER - | | | | | | LABORATORY | | + + + + + + | Absolute | 0.50 (H) | 0.00 - 0.40 | [facility] | | | Eosinophils | | K/uL | [facility] | | | | | | [facility] | | | | | | CENTER - | | | | | | LABORATORY | | + + + + + + | Absolute | 0.10 | 0.00 - 0.10 | [facility] | | | Basophils | | K/uL | [facility] | | | | | | MED[facility] [...] | [facility] | [address] | [place] | [phone] | | [facility] | | [address] | | | - LABORATORY | | | | + + + + + POC Glucose (11/24/2017 9:20 PM PDT) + +---------+ + + + | Component | Value | Ref Range | Performed | Pathologist | | | | | At | Signature | + +---------+ + + + | Glucose, | 219 (H) | 70 - 109 mg/dL | [facility] | | | POC | | | [facility] | | | | | | MEDICAL | | | | | | CENTER - | | | | | | LABORATORY | | + +---------+ + + + + + | Specimen | + + | Blood | + + + + + + + | Performing | Address | City/State/Zipcode | Phone Number | | Organization | | | | + + + + + | [facility] | [address] | [place] | [phone] | | [facility] | | [address] | | | - LABORATORY | | | | + + + + + POC Glucose (11/24/2017 5:02 PM PDT) + +---------+ + + + | Component | Value | Ref Range | Performed | Pathologist | | | | | At | Signature | + +---------+ + + + | Glucose, | 211 (H) | 70 - 109 mg/dL | [facility] | | | POC | | | [facility] | | | | | | MEDICAL | | | | | | CENTER - | | | | | | LABORATORY | | + +---------+ + + + + + | Specimen | + + | Blood | + + + + + + + | Performing | Address | City/State/Zipcode | Phone Number | | Organization | | | | + + + + + | [facility] | [address] | [place] | [phone] | | [facility] | | [address] | | | - LABORATORY | | | | + + + + + POC Glucose (11/24/2017 12:06 PM PDT) + +---------+ + + + | Component | Value | Ref Range | Performed | Pathologist | | | | | At | Signature | + +---------+ + + + | Glucose, | 256 (H) | 70 - 109 mg/dL | [facility] | | | POC | | | [facility] | | | | | [facility] | | | | | | CENTER - | | | | | | LABORATORY | | + +---------+ + + + + + | Specimen | + + | Blood | + + + + + + + | Performing | Address | City/State/Zipcode | Phone Number | | Organization | | | | + + + + + | [facility] | [address] | [place] | [phone] | | [facility] | | [address] | | | - LABORATORY | | | | + + + + + POC Glucose (11/24/2017 6:39 AM PDT) + +---------+ + + + | Component | Value | Ref Range | Performed | Pathologist | | | | | At | Signature | + +---------+ + + + | Glucose, | 270 (H) | 70 - 109 mg/dL | [facility] | | | POC | | | [facility] | | | | [facility] | [facility] | | | | | | CENTER - | | | | | | LABORATORY | | + +---------+ + + + + + | Specimen | + + | Blood | + + + + + + + | Performing | Address | City/State/Zipcode | Phone Number | | Organization | | | | + + + + + | [facility] | [address] | [place] | [phone] | | [facility] | | [address] | | | - LABORATORY | | | | + + + + + Basic Metabolic Panel (11/24/2017 4:26 AM PDT) + + + + + + | Component | Value | Ref Range | Performed | Pathologist | | | | | At | Signature | + + + + + + | Na | 131 (L) | 136 - 149 | [facility] | | | | | mmol/L | [facility] | | | | [facility] | [facility]ICAL | | | | | | CENTER - | | | | | | LABORATORY | | + + + + + + | K | 4.7 | 3.5 - 5.1 | [facility] | | | | | mmol/L | [facility] | | | | | | [facility]ICAL | | | | | | CENTER - | | | | | | LABORATORY | | + + + + + + | Cl | 98 | 98 - 109 mmol/L | [facility] | | | | | | [facility] | | | | [facility] | [facility] | | | | | | CENTER - | | | | | | LABORATORY | | + + + + + + | CO2 | 25 | 24 - 31 mmol/L | [facility] | | | | | | [facility] | | | | [facility] | [facility] | | | | | | CENTER - | | | | | | LABORATORY | | + + + + + + | Anion Gap | 8 | 3 - 16 mmol/L | [facility] | | | | | | [facility] | | | | [facility] | [facility] | | | | | | CENTER - | | | | | | LABORATORY | | + + + + + + | Glucose | 308 (H) | 70 - 109 mg/dL | [facility] | | | | | | [facility] | | | | [facility] | [facility] | | | | | | CENTER - | | | | | | LABORATORY | | + + + + + + | BUN | 16 | 7 - 18 mg/dL | [facility] | | | | | | [facility] | | | | | | [facility] | | | | | | C[facility] - | | | | | | LABORATORY | | + + + + + + | Creatinine | 0.91 | 0.60 - 1.30 | [facility] | | | | | mg/dL | [facility] | | | | | | [facility] | | | | | | CENTER - | | | | | | LABORATORY | | + + + + + + | eGFR if not | >60Comment: GLOMERULAR | >=60 | [facility] | | | | FILTRATION | mL/min/1.73m2 | [facility] | | | DANISH | RATE,ESTIMATED | | MEDICAL | | | | mL/min/1.16f3Zpie than | | CENTER - | | | | 60 Chronic kidney | | LABORATORY | | | | disease,if found over a | | | | | | 3-month period.Less than | | | | | | 15 Kidney failureFor | | | | | | | | | | | | Americans,multiply the | | | | | | calculated GFR by 1.21. | | | | | | | | | | + + + + + + | Calcium | 7.9 (L) | 8.3 - 10.5 | [facility] | | | | | mg/dL | [facility] | | | | | | MEDICAL | | | | | | CENTER - | | | | | | LABORATORY | | + + + + + + | BUN/Creatin | 17.6 | | [facility] | | | ine Ratio [...] + | [facility] | [address] | [place] | [phone] | | [facility] | | [address] | | | - LABORATORY | | | | + + + + + CBC with Differential (11/24/2017 4:26 AM PDT) + + + + + + | Component | Value | Ref Range | Performed | Pathologist | | | | | At | Signature | + + + + + + | WBC | 14.7 (H) | 4.0 - 11.0 K/uL | [facility] | | | | | | [facility] | | | | | | [facility] | | | | | | CENTER - | | | | | | LABORATORY | | + + + + + + | RBC | 4.59 | 4.30 - 5.70 | [facility] | | | | | M/uL | [facility] | | | | | | [facility] | | | | | | CENTER - | | | | | | LABORATORY | | + + + + + + | Hemoglobin | 11.2 (L) | 13.5 - 18.0 | [facility] | | | | | g/dL | [facility] | | | | | | [facility]ICAL | | | | | | CENTER - | | | | | | LABORATORY | | + + + + + + | Hematocrit | 33.8 (L) | 40.0 - 51.0 % | [facility] | | | | | | [facility] | | | [facility] | [facility] | | | | | | CENTER - | | | | | | LABORATORY | | + + + + + + | MCV | 73.6 (L) | 83.0 - 101.0 fL | [facility] | | | | | | [facility] | | | | [facility] | [facility] | | | | | | CENTER - | | | | | | LABORATORY | | + + + + + + | MCH | 24.5 (L) | 28.0 - 35.0 pg | [facility] | | | | | | [facility] | | | [facility] | [facility] | | | | | | CENTER - | | | | | | LABORATORY | | + + + + + + | MCHC | 33.3 | 32.0 - 36.0 | [facility] | | | | | g/dL | [facility] | | | | | | [facility] | | | | | | CENTER - | | | | | | LABORATORY | | + + + + + + | RDW-CV | 15.8 (H) | <15.0 % | [facility] | | | | | | [facility] | | | [facility] | [facility] | | | | | | CENTER - | | | | | | LABORATORY | | + + + + + + | Platelet | 278 | 140 - 440 K/uL | [facility] | | | Count | | | [facility] | | | | | | [facility]ICAL | | | | | | CENTER - | | | | | | LABORATORY | | + + + + + + | MPV | 8.2 | fL | [facility] | | | | | | [facility] | | | [facility] | [facility] | | | | | | CENTER - | | | | | | LABORATORY | | + + + + + + | % | 77.0 | 45.0 - 82.0 % | [facility] | | | Neutrophils | | | [facility] | | | | | | MEDICAL | | | | | | CENTER - | | | | | | LABORATORY | | + + + + + + | % | 9.1 (L) | 20.0 - 45.0 % | [facility] | | | Lymphocytes | | | [facility] | | | | | | [facility]ICAL | | | | | | CENTER - | | | | | | LABORATORY | | + + + + + + | % Monocytes | 9.7 | 4.0 - 12.0 % | [facility] | | | | | | [facility] | | | | | | [facility]ICAL | | | | | | CENTER - | | | | | | LABORATORY | | + + + + + + | % | 3.3 | 0.0 - 5.0 % | [facility] | | | Eosinophils | | | [facility] | | | | | | [facility] | | | | | | CENTER - | | | | | | LABORATORY | | + + + + + + | % Basophils | 0.9 | 0.0 - 1.0 % | [facility] | | | | | | [facility] | | | [facility] | [facility] | | | | | | CENTER - | | | | | | LABORATORY | | + + + + + + | Absolute | 11.30 (H) | 1.80 - 8.50 | [facility] | | | Neutrophils | | K/uL | [facility] | | | | | | [facility] | | | | | | CENTER - | | | | | | LABORATORY | | + + + + + + | Absolute | 1.30 | 0.60 - 3.20 | [facility] | | | Lymphocytes | | K/uL | [facility] | | | | | | [facility] | | | | | | CENTER - | | | | | | LABORATORY | | + + + + + + | Absolute | 1.40 (H) | 0.00 - 1.00 | [facility] | | | Monocytes | | K/uL | [facility] | | | | | | [facility]ICAL | | | | | | CENTER - | | | | | | LABORATORY | | + + + + + + | Absolute | 0.50 (H) | 0.00 - 0.40 | [facility] | | | Eosinophils | | K/uL | [facility] | | | | | | [facility] | | | | | | CENTER - | | | | | | LABORATORY | | + + + + + + | Absolute | 0.10 | 0.00 - 0.10 | [facility] | | | Basophils | | K/uL | [facility] | | | | | | MEDICAL [...] | [facility] | [address] | [place] | [phone] | | [facility] | | [address] | | | - LABORATORY | | | | + + + + + POC Glucose (11/24/2017 1:37 AM PDT) + +---------+ + + + | Component | Value | Ref Range | Performed | Pathologist | | | | | At | Signature | + +---------+ + + + | Glucose, | 296 (H) | 70 - 109 mg/dL | [facility] | | | POC | | | [facility] | | [facility] | [facility] | | | | | | CENTER - | | | | | | LABORATORY | | + +---------+ + + + + + | Specimen | + + | Blood | + + + + + + + | Performing | Address | City/State/Zipcode | Phone Number | | Organization | | | | + + + + + | [facility] | [address] | [place] | [phone] | | [facility] | | [address] | | | - LABORATORY | | | | + + + + + POC Glucose (11/23/2017 7:58 PM PDT) + +---------+ + + + | Component | Value | Ref Range | Performed | Pathologist | | | | | At | Signature | + +---------+ + + + | Glucose, | 280 (H) | 70 - 109 mg/dL | [facility] | | | POC | | | [facility] | | | | | | [facility] | | | | | | CENTER - | | | | | | LABORATORY | | + +---------+ + + + + + | Specimen | + + | Blood | + + + + + + + | Performing | Address | City/State/Zipcode | Phone Number | | Organization | | | | + + + + + | [facility] | [address] | [place] | [phone] | | [facility] | | [address] | | | - LABORATORY | | | | + + + + + POC Glucose (11/23/2017 4:21 PM PDT) + +---------+ + + + | Component | Value | Ref Range | Performed | Pathologist | | | | | At | Signature | + +---------+ + + + | Glucose, | 309 (H) | 70 - 109 mg/dL | [facility] | | | POC | | | [facility] | | | | [facility] | [facility] | | | | | | CENTER - | | | | | | LABORATORY | | + +---------+ + + + + + | Specimen | + + | Blood | + + + + + + + | Performing | Address | City/State/Zipcode | Phone Number | | Organization | | | | + + + + + | [facility] | [address] | [place] | [phone] | | [facility] | | [address] | | | - LABORATORY | | | | + + + + + POC Glucose (11/23/2017 11:09 AM PDT) + +---------+ + + + | Component | Value | Ref Range | Performed | Pathologist | | | | | At | Signature | + +---------+ + + + | Glucose, | 306 (H) | 70 - 109 mg/dL | [facility] | | | POC | | | [facility] | | | | | | [facility] | | | | | | CENTER - | | | | | | LABORATORY | | + +---------+ + + + + + | Specimen | + + | Blood | + + + + + + + | Performing | Address | City/State/Zipcode | Phone Number | | Organization | | | | + + + + + | [facility] | [address] | [place] | [phone] | | [facility] | | [address] | | | - LABORATORY | | | | + + + + + POC Glucose (11/23/2017 6:43 AM PDT) + +---------+ + + + | Component | Value | Ref Range | Performed | Pathologist | | | | | At | Signature | + +---------+ + + + | Glucose, | 229 (H) | 70 - 109 mg/dL | [facility] | | | POC | | | [facility] | | | | | | [facility] | | | | | | CENTER - | | | | | | LABORATORY | | + +---------+ + + + + + | Specimen | + + | Blood | + + + + + + + | Performing | Address | City/State/Zipcode | Phone Number | | Organization | | | | + + + + + | [facility] | [address] | [place] | [phone] | | [facility] | | [address] | | | - LABORATORY | | | | + + + + + Basic Metabolic Panel (11/23/2017 4:26 AM PDT) + + + + + + | Component | Value | Ref Range | Performed | Pathologist | | | | | At | Signature | + + + + + + | Na | 133 (L) | 136 - 149 | [facility] | | | | | mmol/L | [facility] | | | | | | [facility] | | | | | | CENTER - | | | | | | LABORATORY | | + + + + + + | K | 4.3 | 3.5 - 5.1 | [facility] | | | | | mmol/L | [facility] | | | | | | [facility] | | | | | | CENTER - | | | | | | LABORATORY | | + + + + + + | Cl | 96 (L) | 98 - 109 mmol/L | [facility] | | | | | | [facility] | | | | | | [facility] | | | | | | CENTER - | | | | | | LABORATORY | | + + + + + + | CO2 | 27 | 24 - 31 mmol/L | [facility] | | | | | | [facility] | | | | [facility] | [facility] | | | | | | CENTER - | | | | | | LABORATORY | | + + + + + + | Anion Gap | 10 | 3 - 16 mmol/L | [facility] | | | | | | [facility] | | | | [facility] | [facility] | | | | | | CENTER - | | | | | | LABORATORY | | + + + + + + | Glucose | 245 (H) | 70 - 109 mg/dL | [facility] | | | | | | [facility] | | | | | | [facility] | | | | | | CENTER - | | | | | | LABORATORY | | + + + + + + | BUN | 14 | 7 - 18 mg/dL | [facility] | | | | | | [facility] | | | | | | [facility] | | | | | | CENTER - | | | | | | LABORATORY | | + + + + + + | Creatinine | 0.87 | 0.60 - 1.30 | [facility] | | | | | mg/dL | [facility] | | | | | | [facility] | | | | | | CENTER - | | | | | | LABORATORY | | + + + + + + | eGFR if not | >60Comment: GLOMERULAR | >=60 | [facility] | | | | FILTRATION | mL/min/1.73m2 | [facility] | | | [place] | RATE,ESTIMATED | | MEDICAL | | | | mL/min/1.62w9Rhvf than | | CENTER - | | | | 60 Chronic kidney | | LABORATORY | | | | disease,if found over a | | | | | | 3-month period.Less than | | | | | | 15 Kidney failureFor | | | | | | | | | | | | Americans,multiply the | | | | | | calculated GFR by 1.21. | | | | | | | | | | + + + + + + | Calcium | 8.1 (L) | 8.3 - 10.5 | [facility] | | | | | mg/dL | [facility] | | | | | | MEDICAL | | | | | | CENTER - | | | | | | LABORATORY | | + + + + + + | BUN/Creatin | 16.1 | | [facility] | | | ine Ratio [...] | [facility] | [address] | [place] | [phone] | | [facility] | | [address] | | | - LABORATORY | | | | + + + + + CBC with Differential (11/23/2017 4:26 AM PDT) + + + + + + | Component | Value | Ref Range | Performed | Pathologist | | | | | At | Signature | + + + + + + | WBC | 14.5 (H) | 4.0 - 11.0 K/uL | [facility] | | | | | | [facility] | | | [facility] | [facility] | | | | | | CENTER - | | | | | | LABORATORY | | + + + + + + | RBC | 4.55 | 4.30 - 5.70 | [facility] | | | | | M/uL | [facility] | | | | | | [facility]ICAL | | | | | | CENTER - | | | | | | LABORATORY | | + + + + + + | Hemoglobin | 10.9 (L) | 13.5 - 18.0 | [facility] | | | | | g/dL | [facility] | | | | | | [facility] | | | | | | CENTER - | | | | | | LABORATORY | | + + + + + + | Hematocrit | 33.7 (L) | 40.0 - 51.0 % | [facility] | | | | | | [facility] | | | | | | [facility] | | | | | | CENTER - | | | | | | LABORATORY | | + + + + + + | MCV | 74.2 (L) | 83.0 - 101.0 fL | [facility] | | | | | | [facility] | | | | | | [facility] | | | | | | CENTER - | | | | | | LABORATORY | | + + + + + + | MCH | 24.1 (L) | 28.0 - 35.0 pg | [facility] | | | | | | [facility] | | | | | | [facility] | | | | | | CENTER - | | | | | | LABORATORY | | + + + + + + | MCHC | 32.4 | 32.0 - 36.0 | [facility] | | | | | g/dL | [facility] | | | | | | [facility] | | | | | | [facility] - | | | | | | LABORATORY | | + + + + + + | RDW-CV | 16.1 (H) | <15.0 % | [facility] | | | | | | [facility] | | | | | | [facility] | | | | | | [facility] - | | | | | | LABORATORY | | + + + + + + | Platelet | 273 | 140 - 440 K/uL | [facility] | | | Count | | | [facility] | | | | | | [facility] | | | | | | [facility] - | | | | | | LABORATORY | | + + + + + + | MPV | 8.9 | fL | [facility] | | | | | | [facility] | | | | | | [facility] | | | | | | C[facility] - | | | | | | LABORATORY | | + + + + + + | % | 72.3 | 45.0 - 82.0 % | [facility] | | | Neutrophils | | | [facility] | | | | | | [facility] | | | | | | CENTER - | | | | | | LABORATORY | | + + + + + + | % | 12.0 (L) | 20.0 - 45.0 % | [facility] | | | Lymphocytes | | | [facility] | | | | | | [facility] | | | | | | CENTER - | | | | | | LABORATORY | | + + + + + + | % Monocytes | 12.8 (H) | 4.0 - 12.0 % | [facility] | | | | | | [facility] | | | | | | [facility] | | | | | | [facility] - | | | | | | LABORATORY | | + + + + + + | % | 2.5 | 0.0 - 5.0 % | [facility] | | | Eosinophils | | | [facility] | | | | | | [facility] | | | | | | CENTER - | | | | | | LABORATORY | | + + + + + + | % Basophils | 0.4 | 0.0 - 1.0 % | [facility] | | | | | | [facility] | | | | | | [facility] | | | | | | [facility] - | | | | | | LABORATORY | | + + + + + + | Absolute | 10.50 (H) | 1.80 - 8.50 | [facility] | | | Neutrophils | | K/uL | [facility] | | | | | | [facility] | | | | | | CENTER - | | | | | | LABORATORY | | + + + + + + | Absolute | 1.70 | 0.60 - 3.20 | [facility] | | | Lymphocytes | | K/uL | [facility] | | | | | | [facility] | | | | | | [facility]ENTER - | | | | | | LABORATORY | | + + + + + + | Absolute | 1.80 (H) | 0.00 - 1.00 | [facility] | | | Monocytes | | K/uL | [facility] | | | | | | [facility] | | | | | | CENTER - | | | | | | LABORATORY | | + + + + + + | Absolute | 0.40 | 0.00 - 0.40 | [facility] | | | Eosinophils | | K/uL | [facility] | | | | | | [facility] | | | | | | CENTER - | | | | | | LABORATORY | | + + + + + + | Absolute | 0.10 | 0.00 - 0.10 | [facility] | | | Basophils | | K/uL | [facility] | | | | | | MEDICAL [...] | [facility] | [address] | [place] | [phone] | | [facility] | | [address] | | | - LABORATORY | | | | + + + + + POC Glucose (11/23/2017 3:27 AM PDT) + +---------+ + + + | Component | Value | Ref Range | Performed | Pathologist | | | | | At | Signature | + +---------+ + + + | Glucose, | 245 (H) | 70 - 109 mg/dL | [facility] | | | POC | | | [facility] | | | | | | [facility] | | | | | | CENTER - | | | | | | LABORATORY | | + +---------+ + + + + + | Specimen | + + | Blood | + + + + + + + | Performing | Address | City/State/Zipcode | Phone Number | | Organization | | | | + + + + + | [facility] | [address] | [place] | [phone] | | [facility] | | [address] | | | - LABORATORY | | | | + + + + + POC Glucose (11/22/2017 9:19 PM PDT) + +---------+ + + + | Component | Value | Ref Range | Performed | Pathologist | | | | | At | Signature | + +---------+ + + + | Glucose, | 333 (H) | 70 - 109 mg/dL | [facility] | | | POC | | | [facility] | | | | | | [facility] | | | | | | CENTER - | | | | | | LABORATORY | | + +---------+ + + + + + | Specimen | + + | Blood | + + + + + + + | Performing | Address | City/State/Zipcode | Phone Number | | Organization | | | | + + + + + | [facility] | [address] | [place] | [phone] | | [facility] | | [address] | | | - LABORATORY | | | | + + + + + POC Glucose (11/22/2017 5:21 PM PDT) + +---------+ + + + | Component | Value | Ref Range | Performed | Pathologist | | | | | At | Signature | + +---------+ + + + | Glucose, | 387 (H) | 70 - 109 mg/dL | [facility] | | [facility] | | | [facility] | | | | | | [facility] | | | | | | [facility]ENTER - | | | | | | LABORATORY | | + +---------+ + + + + + | Specimen | + + | Blood | + + + + + + + | Performing | Address | City/State/Zipcode | Phone Number | | Organization | | | | + + + + + | [facility] | [address] | [place] | [phone] | | [facility] | | [address] | | | - LABORATORY | | | | + + + + + POC Glucose (11/22/2017 12:09 PM PDT) + +---------+ + + + | Component | Value | Ref Range | Performed | Pathologist | | | | | At | Signature | + +---------+ + + + | Glucose, | 383 (H) | 70 - 109 mg/dL | [facility] | | | POC | | | [facility] | | | | | | MEDICAL | | | | | | CENTER - | | | | | | LABORATORY | | + +---------+ + + + + + | Specimen | + + | Blood | + + + + + + + | Performing | Address | City/State/Zipcode | Phone Number | | Organization | | | | + + + + + | [facility] | [address] | [place] | [phone] | | [facility] | | [address] | | | - LABORATORY | | | | + + + + + XR Chest AP Portable (11/22/2017 10:07 AM PDT) + + | Specimen | + + | | + + + + + | Narrative | Performed At | + + + | XR CHEST AP PORTABLE 11/22/2017 10:07 AM HISTORY: picc line | [facility] | | placement. COMPARISON: Multiple priors. Findings: There has | | | been interval placement of a right PICC line with tip in the mid SVC | | | about 5.2 cm above the rubin. The heart remains enlarged. Aorta is | | | normal. Mediastinum is unremarkable. Pulmonary vasculature is | | | prominent with cephalization. Mild diffuse pulmonary edema is seen. | | | There is moderate atelectasis in the left lung base. Moderate right | | | curvature of the thoracic spine is seen. IMPRESSION - Interval | | | placement of right PICC line with tip in mid SVC about 5.2 cm above | | | rubin. Findings consistent with CHF or fluid overload. These | | | findings were discussed with infusion services. Dictated and | | | Signed by: Rico Santiago MD Electronically signed: 11/22/2017 10:16 | | | AM | | + + + + + | Procedure Note | + + | Elle, Rad Results In - 11/22/2017 10:19 AM PDT XR CHEST AP PORTABLE 11/22/2017 10:07 AM | | | | HISTORY: picc line placement. | | | | COMPARISON: Multiple priors. | | | | Findings: | | There has been interval placement of a right PICC line with tip in the mid SVC | | about 5.2 cm above the rubin. The heart remains enlarged. Aorta is normal. | | Mediastinum is unremarkable. Pulmonary vasculature is prominent with | | cephalization. Mild diffuse pulmonary edema is seen. There is moderate | | atelectasis in the left lung base. Moderate right curvature of the thoracic | | spine is seen. | | | | IMPRESSION - | | Interval placement of right PICC line with tip in mid SVC about 5.2 cm above | | rubin. | | | | Findings consistent with CHF or fluid overload. | | | | These findings were discussed with infusion services. | | | | Dictated and Signed by: Rico Santigao MD | | Electronically signed: 11/22/2017 10:16 AM | + + + +---------+ + + | Performing | Address | City/State/Zipcode | Phone Number | | Organization | | | | + +---------+ + + | [facility] | | | | + +---------+ + + POC Glucose (11/22/2017 6:29 AM PDT) + +---------+ + + + | Component | Value | Ref Range | Performed | Pathologist | | | | | At | Signature | + +---------+ + + + | Glucose, | 259 (H) | 70 - 109 mg/dL | [facility] | | | POC | | | [facility] | [facility] | [facility] | | | | | | [facility] - | | | | | | LABORATORY | | + +---------+ + + + + + | Specimen | + + | Blood | + + + + + + + | Performing | Address | City/State/Zipcode | Phone Number | | Organization | | | | + + + + + | [facility] | [address] | [place] | [phone] | | [facility] | | [address] | | | - LABORATORY | | | | + + + + + Magnesium (11/22/2017 4:47 AM PDT) + +-------+ + + + | Component | Value | Ref Range | Performed | Pathologist | | | | | At | Signature | + +-------+ + + + | Magnesium | 1.9 | 1.8 - 2.5 mg/dL | [facility] | | | | [facility] | | | | [facility] [...] + | [facility] | [address] | [place] | [phone] | | [facility] | | [address] | | | - LABORATORY | | | | + + + + + CBC with Differential (11/22/2017 4:47 AM PDT) + + + + + + | Component | Value | Ref Range | Performed | Pathologist | | | | | At | Signature | + + + + + + | WBC | 16.1 (H) | 4.0 - 11.0 K/uL | [facility] | | | | | [facility] | | [facility] | [facility] | | | | [facility] - | | | | | | LABORATORY | | + + + + + + | RBC | 4.69 | 4.30 - 5.70 | [facility] | | | | | M/uL | [facility] | | | | | | [facility] | | | | | | [facility] - | | | | | | LABORATORY | | + + + + + + | Hemoglobin | 11.3 (L) | 13.5 - 18.0 | [facility] | | | | | g/dL | [facility] | | | | | | [facility] | | | | | | [facility] - | | | | | | LABORATORY | | + + + + + + | Hematocrit | 34.6 (L) | 40.0 - 51.0 % | [facility] | | | | | | [facility] | | | | | | [facility] | | | | | | [facility] - | | | | | | LABORATORY | | + + + + + + | MCV | 73.7 (L) | 83.0 - 101.0 fL | [facility] | | | | | | [facility] | | | | | | [facility] | | | | | | [facility] - | | | | | | LABORATORY | | + + + + + + | MCH | 24.0 (L) | 28.0 - 35.0 pg | [facility] | | | | | | [facility] | | | | | | [facility] | | | | | | [facility] - | | | | | | LABORATORY | | + + + + + + | MCHC | 32.6 | 32.0 - 36.0 | [facility] | | | | | g/dL | [facility] | | | | | | [facility] | | | | | | [facility] - | | | | | | LABORATORY | | + + + + + + | RDW-CV | 15.9 (H) | <15.0 % | [facility] | | | | | | [facility] | | | | [facility] | [facility] | | | | | | [facility] - | | | | | | LABORATORY | | + + + + + + | Platelet | 263 | 140 - 440 K/uL | [facility] | | | Count | | | [facility] | | | | | | [facility] | | | | | | [facility] - | | | | | | LABORATORY | | + + + + + + | MPV | 8.7 | fL | [facility] | | | | | | [facility] | | | | | | [facility] | | | | | | [facility] - | | | | | | LABORATORY | | + + + + + + | % | 76.2 | 45.0 - 82.0 % | [facility] | | | Neutrophils | | | [facility] | | | | | | [facility] | | | | | | [facility] - | | | | | | LABORATORY | | + + + + + + | % | 10.7 (L) | 20.0 - 45.0 % | [facility] | | | Lymphocytes | | | [facility] | | | | | | [facility] | | | | | | [facility] - | | | | | | LABORATORY | | + + + + + + | % Monocytes | 10.8 | 4.0 - 12.0 % | [facility] | | | | | | [facility] | | | | | | [facility] | | | | | | [facility] - | | | | | | LABORATORY | | + + + + + + | % | 1.8 | 0.0 - 5.0 % | [facility] | | | Eosinophils | | | [facility] | | | | | | [facility] | | | | | | [facility] - | | | | | | LABORATORY | | + + + + + + | % Basophils | 0.5 | 0.0 - 1.0 % | [facility] | | | | | | [facility] | | | | | | [facility] | | | | | | [facility] - | | | | | | LABORATORY | | + + + + + + | Absolute | 12.30 (H) | 1.80 - 8.50 | [facility] | | | Neutrophils | | K/uL | [facility] | | | | | | [facility] | | | | | | CENTER - | | | | | | LABORATORY | | + + + + + + | Absolute | 1.70 | 0.60 - 3.20 | [facility] | | | Lymphocytes | | K/uL | [facility] | | | | | | [facility] | | | | | | [facility] - | | | | | | LABORATORY | | + + + + + + | Absolute | 1.70 (H) | 0.00 - 1.00 | [facility] | | | Monocytes | | K/uL | [facility] | | | | | | [facility] | | | | | | CENTER - | | | | | | LABORATORY | | + + + + + + | Absolute | 0.30 | 0.00 - 0.40 | [facility] | | | Eosinophils | | K/uL | [facility] | | | | | | [facility] | | | | | | CENTER - | | | | | | LABORATORY | | + + + + + + | Absolute | 0.10 | 0.00 - 0.10 | [facility] | | | Basophils | | K/uL | [facility] | | | | | | [facility] [...] | + + + + + | [facility] | [address] | [place] | [phone] | | [facility] | | [address] | | | - LABORATORY | | | | + + + + + Basic Metabolic Panel (11/22/2017 4:47 AM PDT) + + + + + + | Component | Value | Ref Range | Performed | Pathologist | | | | | At | Signature | + + + + + + | Na | 133 (L) | 136 - 149 | [facility] | | | | | mmol/L | [facility] | | | | | | [facility] | | | | | | [facility] - | | | | | | LABORATORY | | + + + + + + | K | 4.5 | 3.5 - 5.1 | [facility] | | | | | mmol/L | [facility] | | | | | | [facility] | | | | | | [facility] - | | | | | | LABORATORY | | + + + + + + | Cl | 99 | 98 - 109 mmol/L | [facility] | | | | | | [facility] | | | | | | [facility] | | | | | | [facility] - | | | | | | LABORATORY | | + + + + + + | CO2 | 27 | 24 - 31 mmol/L | [facility] | | | | | | [facility] | | | | | | [facility] | | | | | | [facility] - | | | | | | LABORATORY | | + + + + + + | Anion Gap | 7 | 3 - 16 mmol/L | [facility] | | | | | | [facility] | | | | | | [facility] | | | | | | [facility] - | | | | | | LABORATORY | | + + + + + + | Glucose | 269 (H) | 70 - 109 mg/dL | [facility] | | | | | | [facility] | | | | | | [facility] | | | | | | [facility] - | | | | | | LABORATORY | | + + + + + + | BUN | 14 | 7 - 18 mg/dL | [facility] | | | | | | [facility] | | | | | | [facility] | | | | | | [facility] - | | | | | | LABORATORY | | + + + + + + | Creatinine | 1.04 | 0.60 - 1.30 | [facility] | | | | | mg/dL | [facility] | | | | | | [facility] | | | | | | CENTER - | | | | | | LABORATORY | | + + + + + + | eGFR if not | >60Comment: GLOMERULAR | >=60 | [facility] | | | | FILTRATION | mL/min/1.73m2 | [facility] | | | DANISH | RATE,ESTIMATED | | MEDICAL | | | | mL/min/1.43m8Bosr than | | CENTER - | | | | 60 Chronic kidney | | LABORATORY | | | | disease,if found over a | | | | | | 3-month period.Less than | | | | | | 15 Kidney failureFor | | | | | | | | | | | | Americans,multiply the | | | | | | calculated GFR by 1.21. | | | | | | | | | | + + + + + + | Calcium | 8.0 (L) | 8.3 - 10.5 | [facility] | | | | | mg/dL | [facility] | | | | | | [facility] | | | | | | CENTER - | | | | | | LABORATORY | | + + + + + + | BUN/Creatin | 13.5 | | [facility] | | | ine Ratio | | | [facility] | | | | | | [facility] [...] | + + + + + | [facility] | [address] | [place] | [phone] | | [facility] | | [address] | | | - LABORATORY | | | | + + + + + POC Glucose (11/22/2017 4:46 AM PDT) + +---------+ + + + | Component | Value | Ref Range | Performed | Pathologist | | | | | At | Signature | + +---------+ + + + | Glucose, | 257 (H) | 70 - 109 mg/dL | [facility] | | | POC | | | [facility] | | | | | | [facility] | | | | | | CENTER - | | | | | | LABORATORY | | + +---------+ + + + + + | Specimen | + + | Blood | + + + + + + + | Performing | Address | City/State/Zipcode | Phone Number | | Organization | | | | + + + + + | [facility] | [address] | [place] | [phone] | | [facility] | | [address] | | | - LABORATORY | | | | + + + + + POC Glucose (11/21/2017 9:18 PM PDT) + +---------+ + + + | Component | Value | Ref Range | Performed | Pathologist | | | | | At | Signature | + +---------+ + + + | Glucose, | 363 (H) | 70 - 109 mg/dL | [facility] | | | POC | | | [facility] | | | | | | [facility] | | | | | | C[facility] - | | | | | | LABORATORY | | + +---------+ + + + + + | Specimen | + + | Blood | + + + + + + + | Performing | Address | City/State/Zipcode | Phone Number | | Organization | | | | + + + + + | [facility] | [address] | [place] | [phone] | | [facility] | | [address] | | | - LABORATORY | | | | + + + + + POC Glucose (11/21/2017 4:35 PM PDT) + +---------+ + + + | Component | Value | Ref Range | Performed | Pathologist | | | | | At | Signature | + +---------+ + + + | Glucose, | 377 (H) | 70 - 109 mg/dL | [facility] | | | POC | | | [facility] | | | | | | [facility] | | | | | | CENTER - | | | | | | LABORATORY | | + +---------+ + + + + + | Specimen | + + | Blood | + + + + + + + | Performing | Address | City/State/Zipcode | Phone Number | | Organization | | | | + + + + + | [facility] | [address] | [place] | [phone] | | [facility] | | [address] | | | - LABORATORY | | | | + + + + + Culture, Anaerobic (11/21/2017 12:08 PM PDT) + + + + + + | Component | Value | Ref Range | Performed | Pathologist | | | | | At | Signature | + + + + + + | Culture | No anaerobes isolated. | | [facility] | | | | | | [facility] | | | | | | [facility] | | | | | | [facility]ENTER - | | | | | | LABORATORY | | + + + + + + + + | Specimen | + + | Tissue - Structure | | of proper plantar | | digital nerve of | | fourth toe (body | | structure) | + + + + + + + | Performing | Address | City/State/Zipcode | Phone Number | | Organization | | | | + + + + + | [facility] | [address] | [place] | [phone] | | [facility] | | [address] | | | - LABORATORY | | | | + + + + + Culture, Wound, Smear (11/21/2017 12:08 PM PDT) + + + + + + | Component | Value | Ref Range | Performed | Pathologist | | | | | At | Signature | + + + + + + | Culture | 2+ Enterobacter | | [facility] | | | | aerogenesComment: | | [facility] | | | | Consider combination | | MEDICAL | | | | therapy for serious | | CENTER - | | | | infections.This organism | | LABORATORY | | | | is known to possess | | | | | | inducible | | | | | | beta-lactamases. | | | | | | Isolates may become | | | | | | resistant to all | | | | | | cephalosporins after | | | | | | initiation of therapy. | | | | | | Avoid | | | | | | beta-lactam/beta-lactama | | | | | | se inhibitory | | | | | | combinations. | | | | + + + + + + | Gram Stain | 2+ White Blood Cells | | [facility] | | | Result | | | [facility] | | | | | | [facility]ICAL | | | | | | CENTER - | | | | | | LABORATORY | | + + + + + + | Gram Stain | 1+ Epithelial cells | | [facility] | | | Result | | | [facility] | | | | | | [facility] | | | | | | CENTER - | | | | | | LABORATORY | | + + + + + + | Gram Stain | 2+ Gram negative rods | | [facility] | | | Result | | | [facility] | | | | | | [facility] | | | | | | CENTER - | | | | | | LABORATORY | | + + + + + + + + | Specimen | + + | Tissue - Structure | | of proper plantar | | digital nerve of | | fourth toe (body | | structure) | + + + + +--------+ + | Organism | Antibiotic | Method | Susceptibility | + + +--------+ + | Klebsiella | Cefazolin | | >=64 ug/mL: | | (Enterobacter) | | | Resistant | | aerogenes | | | | + + +--------+ + | Klebsiella | Cefoxitin | | >=64 ug/mL: | | (Enterobacter) | | | Resistant | | aerogenes | | | | + + +--------+ + | Klebsiella | Ceftazidime | | <=1 ug/mL: | | (Enterobacter) | | | Sensitive | | aerogenes | | | | + + +--------+ + | Klebsiella | Ceftriaxone | | <=1 ug/mL: | | (Enterobacter) | | | Sensitive | | aerogenes | | | | + + +--------+ + | Klebsiella | Ciprofloxacin | | <=0.25 ug/mL: | | (Enterobacter) | | | Sensitive | | aerogenes | | | | + + +--------+ + | Klebsiella | Ertapenem | | <=0.5 ug/mL: | | (Enterobacter) | | | Sensitive | | aerogenes | | | | + + +--------+ + | Klebsiella | Gentamicin | | <=1 ug/mL: | | (Enterobacter) | | | Sensitive | | aerogenes | | | | + + +--------+ + | Klebsiella | Meropenem | | <=0.25 ug/mL: | | (Enterobacter) | | | Sensitive | | aerogenes | | | | + + +--------+ + | Klebsiella | Piperacillin + | | <=4 ug/mL: | | (Enterobacter) | Tazobactam | | Sensitive | | aerogenes | | | | + + +--------+ + | Klebsiella | Tobramycin | | <=1 ug/mL: | | (Enterobacter) | | | Sensitive | | aerogenes | | | | + + +--------+ + | Klebsiella | Trimethoprim + | | <=20 ug/mL: | | (Enterobacter) | Sulfamethoxazole | | Sensitive | | aerogenes | | | | + + +--------+ + + + + + + | Performing | Address | City/State/Zipcode | Phone Number | | Organization | | | | + + + + + | [facility] | [address] | [place] | [phone] | | [facility] | | [address] | | | - LABORATORY | | | | + + + + + POC Glucose (11/21/2017 11:33 AM PDT) + +---------+ + + + | Component | Value | Ref Range | Performed | Pathologist | | | | | At | Signature | + +---------+ + + + | Glucose, | 367 (H) | 70 - 109 mg/dL | [facility] | | | POC | | | [facility] | | | | | | [facility] | | | | | | CENTER - | | | | | | LABORATORY | | + +---------+ + + + + + | Specimen | + + | Blood | + + + + + + + | Performing | Address | City/State/Zipcode | Phone Number | | Organization | | | | + + + + + | [facility] | [address] | [place] | [phone] | | [facility] | | [address] | | | - LABORATORY | | | | + + + + + POC Glucose (11/21/2017 6:23 AM PDT) + +---------+ + + + | Component | Value | Ref Range | Performed | Pathologist | | | | | At | Signature | + +---------+ + + + | Glucose, | 261 (H) | 70 - 109 mg/dL | [facility] | | | P[facility] | | | [facility] | | | | | | [facility] | | | | | | [facility] - | | | | | | LABORATORY | | + +---------+ + + + + + | Specimen | + + | Blood | + + + + + + + | Performing | Address | City/State/Zipcode | Phone Number | | Organization | | | | + + + + + | [facility] | [address] | [place] | [phone] | | [facility] | | [address] | | | - LABORATORY | | | | + + + + + Slide Review, Peripheral Smear (11/21/2017 4:08 AM PDT) + + + + + + | Component | Value | Ref Range | Performed | Pathologist | | | | | At | Signature | + + + + + + | WBC | Normal | | [facility] | | | Morphology | | | [facility] | | | | | | [facility] | | | | | | [facility]ENTER - | | | | | | LABORATORY | | + + + + + + | Platelet | Adequate | Adequate | [facility] | | | Estimate | | | [facility] | | [facility] | | | [facility] | | | | | | [facility]ENTER - | | | | | | LABORATORY | | + + + + + + | Giant | Present (A) | Not Present | [facility] | | | Platelets | | | [facility] | | | | | | [facility] | | | | | | CENTER - | | | | | | LABORATORY | | + + + + + + | Hypochromas | Slight (A) | (none) | [facility] | | | ia | | | [facility] | | | | | | [facility] | | | | | | CENTER - | | | | | | LABORATORY | | + + + + + + | RBC | Slight (A) | (none) | [facility] | | | Microcytes | | | [facility] | | | | | | [facility] | | | | | | CENTER - | | | | | | LABORATORY | | + + + + + + | Anisocytosi | Slight (A) | (none) | [facility] | | | s | | | [facility] | | | | | | [facility] | | | | | | CENTER - | | | | | | LABORATORY | | + + + + + + + + | Specimen | + + | Blood | + + + + + | Narrative | Performed At | + + + | No immature cells seen | [facility] | | | [facility] | | | [facility] | | | - LABORATORY | + + + + + + + + | Performing | Address | City/State/Zipcode | Phone Number | | Organization | | | | + + + + + | [facility] | [address] | [place] | [phone] | | [facility] | | [address] | | | - LABORATORY | | | | + + + + + B Type Natriuretic Peptide (11/21/2017 4:08 AM PDT) + +-------+ + + + | Component | Value | Ref Range | Performed | Pathologist | | | | | At | Signature | + +-------+ + + + | BNP | 57 | <100 pg/mL | [facility] | | | | | | [facility] [...] | + + + + + | [facility] | [address] | [place] | [phone] | | [facility] | | [address] | | | - LABORATORY | | | | + + + + + Sedimentation Rate (11/21/2017 4:08 AM PDT) + +--------+ + + + | Component | Value | Ref Range | Performed | Pathologist | | | | | At | Signature | + +--------+ + + + | ESR | 67 (H) | <20 mm/hr | [facility] | | | | | | [facility] | | | | | | [facility] | | | | | | CENTER - | | | | | | LABORATORY | | + +--------+ + + + + + | Specimen | + + | Blood | + + + + + + + | Performing | Address | City/State/Zipcode | Phone Number | | Organization | | | | + + + + + | [facility] | [address] | [place] | [phone] | | [facility] | | [address] | | | - LABORATORY | | | | + + + + + C-Reactive Protein (11/21/2017 4:08 AM PDT) + + + + + + | Component | Value | Ref Range | Performed | Pathologist | | | | | At | Signature | + + + + + + | CRP | 165.00 (H) | <8.00 mg/L | [facility] | | | | | | [facility] [...] | [facility] | [address] | [place] | [phone] | | [facility] | | [address] | | | - LABORATORY | | | | + + + + + Magnesium (11/21/2017 4:08 AM PDT) + +---------+ + + + | Component | Value | Ref Range | Performed | Pathologist | | | | | At | Signature | + +---------+ + + + | Magnesium | 1.7 (L) | 1.8 - 2.5 mg/dL | [facility] | | | | | | [facility] | | | | | | [facility] | | | | | | [facility] - | | | | | | LABORATORY | | + +---------+ + + + + + | Specimen | + + | Blood | + + + + + + + | Performing | Address | City/State/Zipcode | Phone Number | | Organization | | | | + + + + + | [facility] | [address] | [place] | [phone] | | [facility] | | [address] | | | - LABORATORY | | | | + + + + + CBC with Differential (11/21/2017 4:08 AM PDT) + + + + + + | Component | Value | Ref Range | Performed | Pathologist | | | | | At | Signature | + + + + + + | WBC | 15.0 (H) | 4.0 - 11.0 K/uL | [facility] | | | | | | [facility] | | | | | | [facility] | | | | | | CENTER - | | | | | | LABORATORY | | + + + + + + | RBC | 4.72 | 4.30 - 5.70 | [facility] | | | | | M/uL | [facility] | | | | | | [facility]ICAL | | | | | | CENTER - | | | | | | LABORATORY | | + + + + + + | Hemoglobin | 11.4 (L) | 13.5 - 18.0 | [facility] | | | | | g/dL | [facility] | | | | | | [facility] | | | | | | CENTER - | | | | | | LABORATORY | | + + + + + + | Hematocrit | 35.0 (L) | 40.0 - 51.0 % | [facility] | | | | | | [facility] | | | | | | [facility] | | | | | | CENTER - | | | | | | LABORATORY | | + + + + + + | MCV | 74.1 (L) | 83.0 - 101.0 fL | [facility] | | | | | | [facility] | | | | | | [facility] | | | | | | CENTER - | | | | | | LABORATORY | | + + + + + + | MCH | 24.1 (L) | 28.0 - 35.0 pg | [facility] | | | | | | [facility] | | | | | | [facility] | | | | | | CENTER - | | | | | | LABORATORY | | + + + + + + | MCHC | 32.5 | 32.0 - 36.0 | [facility] | | | | | g/dL | [facility] | | | | | | [facility] | | | | | | CENTER - | | | | | | LABORATORY | | + + + + + + | RDW-CV | 15.8 (H) | <15.0 % | [facility] | | | | | | [facility] | | | | | | [facility] | | | | | | CENTER - | | | | | | LABORATORY | | + + + + + + | Platelet | 283 | 140 - 440 K/uL | [facility] | | | Count | | | [facility] | | | | | | [facility] | | | | | | CENTER - | | | | | | LABORATORY | | + + + + + + | MPV | 8.5 | fL | [facility] | | | | | | [facility] | | | | | | [facility] | | | | | | CENTER - | | | | | | LABORATORY | | + + + + + + | % | 78.7 | 45.0 - 82.0 % | [facility] | | | Neutrophils | | | [facility] | | | | | | [facility] | | | | | | CENTER - | | | | | | LABORATORY | | + + + + + + | % | 6.6 (L) | 20.0 - 45.0 % | [facility] | | | Lymphocytes | | | [facility] | | | | | | [facility] | | | | | | CENTER - | | | | | | LABORATORY | | + + + + + + | % Monocytes | 9.7 | 4.0 - 12.0 % | [facility] | | | | | | [facility] | | | | | | [facility] | | | | | | CENTER - | | | | | | LABORATORY | | + + + + + + | % | 3.4 | 0.0 - 5.0 % | [facility] | | | Eosinophils | | | [facility] | | | | | | [facility] | | | | | | CENTER - | | | | | | LABORATORY | | + + + + + + | % Basophils | 1.6 (H) | 0.0 - 1.0 % | [facility] | | | | | | [facility] | | | | | | [facility] | | | | | | [facility] - | | | | | | LABORATORY | | + + + + + + | Absolute | 11.80 (H) | 1.80 - 8.50 | [facility] | | | Neutrophils | | K/uL | [facility] | | | | | | [facility] | | | | | | CENTER - | | | | | | LABORATORY | | + + + + + + | Absolute | 1.00 | 0.60 - 3.20 | [facility] | | | Lymphocytes | | K/uL | [facility] | | | | | | [facility] | | | | | | CENTER - | | | | | | LABORATORY | | + + + + + + | Absolute | 1.50 (H) | 0.00 - 1.00 | [facility] | | | Monocytes | | K/uL | [facility] | | | | | | [facility] | | | | | | CENTER - | | | | | | LABORATORY | | + + + + + + | Absolute | 0.50 (H) | 0.00 - 0.40 | [facility] | | | Eosinophils | | K/uL | [facility] | | | | | | [facility] | | | | | | CENTER - | | | | | | LABORATORY | | + + + + + + | Absolute | 0.20 (H) | 0.00 - 0.10 | [facility] | | | Basophils | | K/uL | [facility] | | | | | | MED[facility] [...] | + + + + + | [facility] | [address] | [place] Gutierrez | [phone] | | [facility] | | [id number] | | | - LABORATORY | | | | + + + + + Basic Metabolic Panel (11/21/2017 4:08 AM PDT) + + + + + + | Component | Value | Ref Range | Performed | Pathologist | | | | | At | Signature | + + + + + + | Na | 133 (L) | 136 - 149 | [facility] | | | | | mmol/L | [facility] | | | | | | [facility] | | | | | | CENTER - | | | | | | LABORATORY | | + + + + + + | K | 4.3 | 3.5 - 5.1 | [facility] | | | | | mmol/L | [facility] | | | | | | MEDICAL | | | | | | CENTER - | | | | | | LABORATORY | | + + + + + + | Cl | 99 | 98 - 109 mmol/L | [facility] | | | | | | [facility] | | | | | | [facility] | | | | | | CENTER - | | | | | | LABORATORY | | + + + + + + | CO2 | 25 | 24 - 31 mmol/L | [facility] | | | | | | [facility] | | | | | | [facility] | | | | | | CENTER - | | | | | | LABORATORY | | + + + + + + | Anion Gap | 9 | 3 - 16 mmol/L | [facility] | | | | | | [facility] | | | | | | [facility] | | | | | | CENTER - | | | | | | LABORATORY | | + + + + + + | Glucose | 301 (H) | 70 - 109 mg/dL | [facility] | | | | | | [facility] | | | | | | [facility] | | | | | | CENTER - | | | | | | LABORATORY | | + + + + + + | BUN | 14 | 7 - 18 mg/dL | [facility] | | | | | | [facility] | | | | | | [facility] | | | | | | CENTER - | | | | | | LABORATORY | | + + + + + + | Creatinine | 1.02 | 0.60 - 1.30 | [facility] | | | | | mg/dL | [facility] | | | | | | MEDICAL | | | | | | CENTER - | | | | | | LABORATORY | | + + + + + + | eGFR if not | >60Comment: GLOMERULAR | >=60 | [facility] | | | | FILTRATION | mL/min/1.73m2 | [facility] | | | [facility] | RATE,ESTIMATED | | MEDICAL | | | | mL/min/1.12e7Cdvh than | | CENTER - | | | | 60 Chronic kidney | | LABORATORY | | | | disease,if found over a | | | | | | 3-month period.Less than | | | | | | 15 Kidney failureFor | | | | | | | | | | | | Americans,multiply the | | | | | | calculated GFR by 1.21. | | | | | | | | | | + + + + + + | Calcium | 8.0 (L) | 8.3 - 10.5 | [facility] | | | | | mg/dL | [facility] | | | | | | [facility] | | | | | | [facility] - | | | | | | LABORATORY | | + + + + + + | BUN/Creatin | 13.7 | | [facility] | | | ine Ratio [...] | [facility] | [address] | [place], [place] | [phone] | | [facility] | | [address] | | | - LABORATORY | | | | + + + + + Vancomycin, Trough (11/21/2017 4:08 AM PDT) + +-------+ + + + | Component | Value | Ref Range | Performed | Pathologist | | | | | At | Signature | + +-------+ + + + | Date of | | | [facility] | | | Last Dose | | | [facility] | | | | | | [facility] - | | | | | | LABORATORY | | + +-------+ + + + | Time of | | | [facility] | | | Last Dose | | | [facility] | | [facility] | [facility] - | | | | | | LABORATORY | | + +-------+ + + + | Vancomycin | 13.6 | <20.0 ug/mL | [facility] | | | Trough | | | [facility] | | | | [facility] | [facility] [...] + | [facility] | [address] | [place] | [phone] | | [facility] | | [address] | | | - LABORATORY | | | | + + + + + POC Glucose (11/21/2017 2:46 AM PDT) + +---------+ + + + | Component | Value | Ref Range | Performed | Pathologist | | | | | At | Signature | + +---------+ + + + | Glucose, | 312 (H) | 70 - 109 mg/dL | [facility] | | | POC | | | [facility] | | | [facility] | [facility] | | | | | | C[facility] - | | | | | | LABORATORY | | + +---------+ + + + + + | Specimen | + + | Blood | + + + + + + + | Performing | Address | City/State/Zipcode | Phone Number | | Organization | | | | + + + + + | [facility] | [address] | [place], [place] | [phone] | | [facility] | | [address] | | | - LABORATORY | | | | + + + + + Surgical Pathology Exam (11/21/2017 12:00 AM PDT) + + | Specimen | + + | | + + + + + | Narrative | Performed At | + + + | SPECIMEN(S): A RIGHT 5TH MEATATRSAL SPECIMEN SOURCE: A. RIGHT [facility] | | 5TH MEATATRSAL CLINICAL HISTORY: 5th metatarsal diabetic | [facility] | | infection. FINAL PATHOLOGIC DIAGNOSIS: Right 5th metatarsal: - | | | Bone with focal serous fat necrosis with associated acute and | | | chronic inflammation suggestive of osteomyelitis. JVR:[facility]:C2NR | | | MICROSCOPIC EXAMINATION: Histologic sections of all submitted blocks | | | are examined by light microscopy. These findings, together with the | | | gross examination, support the pathologic diagnosis. GROSS | | | DESCRIPTION: The specimen is received in formalin labeled "right 5th | | | metarsal" is a 3.1 x 2.2 x 1.9 cm bony fragment with a 1.5 x 1.2 cm | | | smooth resection margin and a 2.3 x 1.5 cm ordaz-white, smooth articular | | | surface. The cut surface is tannish-yellow and trabeculated. | | | Representatively submitted in (A1) | | | | | | smooth resection margin en face, (A2) | | | | | | articular surface perpendicular (both sections decalcified in decal | | | STAT).. am:AMB:[facility] PERFORMING LABORATORY: The technical | | | component was performed by [facility], [address] [place] [address], | | | [facility] [address] (Cattle Driver: Khadra Gill MD; CLIA# | | | [id number]). Professional interpretation was performed by [facility] | | | [facility], [address] | | | [facility] [address] [place] [address] (Cattle Driver: Ambrosio | | | Madison Hall). Diagnostician: Ambrosio Hall MD | | | Pathologist Electronically Signed 11/23/2017 | | + + + + +---------+ + + | Performing | Address | City/State/Zipcode | Phone Number | | Organization | | | | + +---------+ + + | [facility] | | | | | [facility] | | | | + +---------+ + + POC Glucose (11/20/2017 8:16 PM PDT) + +---------+ + + + | Component | Value | Ref Range | Performed | Pathologist | | | | | At | Signature | + +---------+ + + + | Glucose, | 331 (H) | 70 - 109 mg/dL | [facility] | | | POC | | | [facility] | | | | | [facility] | | | | | | CENTER - | | | | | | LABORATORY | | + +---------+ + + + + + | Specimen | + + | Blood | + + + + + + + | Performing | Address | City/State/Zipcode | Phone Number | | Organization | | | | + + + + + | [facility] | [address] | [place] | [phone] | | [facility] | | [address] | | | - LABORATORY | | | | + + + + + ECHO Complete (11/20/2017 6:00 PM PDT) + +---------+ + + + | Component | Value | Ref Range | Performed | Pathologist | | | | | At | Signature | + +---------+ + + + | BASELINE | 176/86 | mmHg | [facility] | | | BLOOD | | | | | | PRESSURE | | | | | + +---------+ + + + | Patient | 241 lbs | | [facility] | | | Weight | | | | | | (lbs) | | | | | + +---------+ + + + | Patient | 70 in | | [facility] | | | Height | | | | | + +---------+ + + + | LVIDd | 4.46 | cm | [facility] | | + +---------+ + + + | LA volume | 68.02 | mL | [facility] | | + +---------+ + + + | Ascending | 3.7 | cm | [facility] | | | aorta | | | | | + +---------+ + + + | AV mean | 8.26 | mmHg | [facility] | | | gradient | | | | | + +---------+ + + + | Aortic | 2.02 | cm2 | [facility] | | | Valve Area | | | | | | by | | | | | | Continuity | | | | | | VTI | | | | | + +---------+ + + + | MV Area by | 2.28 | cm2 | [facility] | | | P 1/2 | | | | | | method | | | | | + +---------+ + + + | IVRT | 132.6 | msec | [facility] | | + +---------+ + + + | LVOT | 2.13 | cm | [facility] | | | diameter | | | | | + +---------+ + + + | LVOT peak | 96.31 | cm/s | [facility] | | | jose roberto | | | | | + +---------+ + + + | LVOT peak | 18.86 | cm | [facility] | | | VTI | | | | | + +---------+ + + + | AV VTI | 33.3 | cm | [facility] | | + +---------+ + + + | MV peak | 4.93 | mmHg | [facility] | | | gradient | | | | | + +---------+ + + + | MV Pressure | 96.56 | msec | [facility] | | | 1/2 time | | | | | + +---------+ + + + | LA Volume | 30 | mL/m2 | [facility] | | | Index | | | | | + +---------+ + + + | AV LVOT | 3.18 | mmHg | [facility] | | | Peak | | | | | | Gradient | | | | | + +---------+ + + + | AV LVOT | 2.16 | mmHg | [facility] | | | Mean | | | | | | Gradient | | | | | + +---------+ + + + | LV | 6.52 | cm | [facility] | | | Diastolic | | | | | | Length 4C | | | | | + +---------+ + + + | LV Systolic | 13.46 | cm2 | [facility] | | | Area PSAX | | | | | + +---------+ + + + | LV | 69 | % | [facility] | | | Beckett's | | | | | | Biplane EF | | | | | + +---------+ + + + | AV | 103.6 | msec | [facility] | | | Acceleratio | | | | | | n Time | | | | | + +---------+ + + + | LV ED | 60.04 | ml | [facility] | | | Volume | | | | | | (Beckett's) | | | | | + +---------+ + + + | LV ED | 27 | ml/m2 | [facility] | | | Volume | | | | | | Index | | | | | + +---------+ + + + | LV ES | 18.45 | ml | [facility] | | | Volume | | | | | + +---------+ + + + | LVOT Mean | 67.93 | cm/s | [facility] | | | Velocity | | | | | + +---------+ + + + | MV E' | 5.96 | cm/s | [facility] | | | Lateral | | | | | | Velocity | | | | | + +---------+ + + + | MV E' | 4.79 | cm/s | [facility] | | | Septal | | | | | | Velocity | | | | | + +---------+ + + + | MV | 336.24 | cm/s2 | [facility] | | | Deceleratio | | | | | | n [place] | | | | | + +---------+ + + + | MV | 332.96 | msec | [facility] | | | Deceleratio | | | | | | n Time | | | | | + +---------+ + + + | MV E/A | 0.77 | | [facility] | | | Ratio | | | | | + +---------+ + + + | MV Peak | 143.73 | cm/s | [facility] | | | A-Wave | | | | | + +---------+ + + + | MV Peak | 110.98 | cm/s | [facility] | | | E-Wave | | | | | + +---------+ + + + | AV Mean | 133.92 | cm/s | [facility] | | | Velocity | | | | | + +---------+ + + + | LA/Aorta | 1.23 | | [facility] | | | Ratio | | | | | + +---------+ + + + | LA Area | 17.06 | cm2 | [facility] | | + +---------+ + + + | LA Systolic | 25.28 | mmHg | [facility] | | | Pressure | | | | | + +---------+ + + + | MV E/E | 23.17 | | [facility] | | | SEPTAL | | | | | + +---------+ + + + | MV E/E | 18.62 | | [facility] | | | LATERAL | | | | | + +---------+ + + + | LA Major | 0.333 | cm | [facility] | | + +---------+ + + + | LV ES | 8 | ml/m2 | [facility] | | | Volume | | | | | | Index | | | | | + +---------+ + + + | LV Area | 18.83 | cm2 | [facility] | | | Diastolic | | | | | + +---------+ + + + | Heart Rate | 92 | | [facility] | | + +---------+ + + + | Aortic Root | 3.8 | cm | [facility] | | | Diameter | | | | | + +---------+ + + + | IVS | 1.31 | cm | [facility] | | | Diastolic | | | | | | Thickness | | | | | | MM | | | | | + +---------+ + + + | LVPW | 1.04 | cm | [facility] | | | Diastolic | | | | | | Thickness | | | | | | MM | | | | | + +---------+ + + + | AV Cusp | 0.59 | cm | [facility] | | | Seperation | | | | | | MM | | | | | + +---------+ + + + | LA Systolic | 4.69 | cm | [facility] | | | Diameter | | | | | | MM | | | | | + +---------+ + + + | LVEF-TTE | 60 | % | [facility] | | | TRANSTHORAC | | | | | | IC ECHO | | | | | + +---------+ + + + + + | Specimen | + + | | + + + + + | Narrative | Performed At | + + + | 1. Moderate | [facility] | | left ventricular hypertrophy with normal ejection fraction2. Mild | | | apical hypokinesis without evidence of septal outflow obstruction.3. | | | Moderate left atrial enlargement4. Normal right heart chambers and | | | valves.5. Calcification of the aortic and mitral valves.6. No | | | evidence of significant aortic stenosis or mitral regurgitation. | | |6. No evidence of significant aortic stenosis or mitral regurgitation. | | | | | | | | | | | + + + + +---------+ + + | Performing | Address | City/State/Zipcode | Phone Number | | Organization | | | | + +---------+ + + | [facility] | | | | + +---------+ + + POC Glucose (11/20/2017 4:34 PM PDT) + +---------+ + + + | Component | Value | Ref Range | Performed | Pathologist | | | | | At | Signature | + +---------+ + + + | Glucose, | 292 (H) | 70 - 109 mg/dL | [facility] | | | POC | | | [facility] | | | | | [facility] | | | | | | CENTER - | | | | | | LABORATORY | | + +---------+ + + + + + | Specimen | + + | Blood | + + + + + + + | Performing | Address | City/State/Zipcode | Phone Number | | Organization | | | | + + + + + | [facility] | [address] | [place] | [phone] | | [facility] | | [address] | | | - LABORATORY | | | | + + + + + CT Chest wo Contrast (11/20/2017 2:31 PM PDT) + + | Specimen | + + | | + + + + + | Narrative | Performed At | + + + | CT CHEST WO CONTRAST 11/20/2017 2:31 PM HISTORY: Evaluate for | [facility] | | pneumonia. COMPARISON: Chest x-ray 11/19/2017. PROTOCOL: Axial | | | images of the chest were obtained. Coronal and sagittal reformations | | | were acquired. FINDINGS: Neck base is normal. Heart is mildly | | | enlarged. Extensive coronary calcium is visualized. There is mild to | | | moderate atherosclerosis of the aorta extending into the branches. | | | The pulmonary arteries are unremarkable. SVC is normal. No | | | enlarged lymph nodes are seen in the mediastinum, juan, or axillae. | | | Trachea and esophagus demonstrate no acute findings. Diffuse | | | interstitial thickening are visualized of the bilateral lungs | | | consistent with pulmonary congestion. Moderate patchy groundglass | | | opacities are seen of the bilateral lungs consistent with pulmonary | | | edema. These findings are most consistent with CHF or fluid overload. | | | No definite focal pneumonia is observed. Mild to moderate linear | | | atelectasis are in the left lung lingula and left lower lobe. | | | There are cholecystectomy clips. Chest wall structures are normal. | | | Moderate levoscoliosis of the thoracolumbar spine is present. There | | | is moderate spondylosis. Multilevel mild to moderate disc narrowing | | | are seen with vacuum disc phenomenon. Motion is observed in the | | | region of the sternum that limits evaluation. IMPRESSION - No | | | definite evidence for focal pneumonia. Findings consistent with | | | CHF or fluid overload. Overlapping pneumonitis cannot entirely be | | | excluded. Extensive coronary calcium. Recommend clinical | | | correlation for possible ischemia heart disease. Dictated and | | | Signed by: Rico Santiago MD Electronically signed: 11/20/2017 3:15 PM | | | | | + + + + + | Procedure Note | + + | Elle, Rad Results In - 11/20/2017 3:[address] CHEST WO CONTRAST 11/20/2017 2:31 PM | | | | HISTORY: Evaluate for pneumonia. | | | | COMPARISON: Chest x-ray 11/19/2017. | | | | PROTOCOL: Axial images of the chest were obtained. Coronal and sagittal | | reformations were acquired. | | | | FINDINGS: | | Neck base is normal. | | | | Heart is mildly enlarged. Extensive coronary calcium is visualized. There is | | mild to moderate atherosclerosis of the aorta extending into the branches. The | | pulmonary arteries are unremarkable. SVC is normal. | | | | No enlarged lymph nodes are seen in the mediastinum, juan, or axillae. Trachea | | and esophagus demonstrate no acute findings. | | | | Diffuse interstitial thickening are visualized of the bilateral lungs consistent | | with pulmonary congestion. Moderate patchy groundglass opacities are seen of the | | bilateral lungs consistent with pulmonary edema. These findings are most | | consistent with CHF or fluid overload. No definite focal pneumonia is observed. | | Mild to moderate linear atelectasis are in the left lung lingula and left lower | | lobe. | | | | There are cholecystectomy clips. | | | | Chest wall structures are normal. Moderate levoscoliosis of the thoracolumbar | | spine is present. There is moderate spondylosis. Multilevel mild to moderate | | disc narrowing are seen with vacuum disc phenomenon. Motion is observed in the | | region of the sternum that limits evaluation. | | | | IMPRESSION - | | No definite evidence for focal pneumonia. | | | | Findings consistent with CHF or fluid overload. Overlapping pneumonitis cannot | | entirely be excluded. | | | | Extensive coronary calcium. Recommend clinical correlation for possible ischemia | | heart disease. | | | | Dictated and Signed by: Rico Santiago MD | | Electronically signed: 11/20/2017 3:15 PM | + + + +---------+ + + | Performing | Address | City/State/Zipcode | Phone Number | | Organization | | | | + +---------+ + + | [facility] | | | | + +---------+ + + MRI Foot Right w wo Contrast (11/20/2017 2:14 PM PDT) + + | Specimen | + + | | + + + + + | Narrative | Performed At | + + + | MRI FOOT RIGHT W WO CONTRAST 11/20/2017 1:20 PM HISTORY: Evaluate | [facility] | | for osteomyelitis. COMPARISON: None. PROTOCOL: Sagittal | | | proton density fat sat, sagittal T1, sagittal STIR, axial T1, axial | | | STIR, coronal proton density fat sat, coronal STIR, coronal T1, | | | coronal T1 fat sat post gadolinium, sagittal T1 fat sat post | | | gadolinium, axial T1 fat sat post gadolinium. The patient was | | | administered 10 cc Gadavist. FINDINGS: A soft tissue ulcer is | | | observed along the lateral midfoot. Associated signal alteration is | | | observed at the base of the fifth metatarsal with abnormal | | | enhancement consistent with osteomyelitis. No significant destructive | | | change is observed at this time. There is mild diffuse edema | | | suggestive of cellulitis. The ankle anterior, posterior, lateral, | | | and Achilles tendons are intact. The plantar fascia images normal | | | signal. The tibiofibular ligaments, talofibular ligaments, | | | calcaneofibular ligament, and deltoid ligaments are intact. The sinus | | | tarsi shows normal signal. IMPRESSION - Soft tissue ulcer along | | | the lateral midfoot with associated signal alteration at the base of | | | the fifth metatarsal showing abnormal enhancement, consistent with | | | osteomyelitis. No significant destructive change is observed at this | | | time. There is mild diffuse edema of the foot suggestive of | | | cellulitis. Dictated and Signed by: Rico Santiago MD | | | Electronically signed: 11/20/2017 3:25 PM | | + + + + + | Procedure Note | + + | Elle, Rad Results In - 11/20/2017 3:29 PM PDT MRI FOOT RIGHT W WO CONTRAST 11/20/2017 | | 1:20 PM HISTORY: Evaluate for osteomyelitis.COMPARISON: None.PROTOCOL: Sagittal proton | | density fat sat, sagittal T1, sagittal STIR, axial T1,axial STIR, coronal proton density | | fat sat, coronal STIR, coronal T1, coronal T1fat sat post gadolinium, sagittal T1 fat | | sat post gadolinium, axial T1 fat satpost gadolinium. The patient was administered 10 cc | | Gadavist.FINDINGS:A soft tissue ulcer is observed along the lateral midfoot. Associated | | signalalteration is observed at the base of the fifth metatarsal with | | abnormalenhancement consistent with osteomyelitis. No significant destructive change | | isobserved at this time. There is mild diffuse edema suggestive of cellulitis.The ankle | | anterior, posterior, lateral, and Achilles tendons are intact. Theplantar fascia images | | normal signal.The tibiofibular ligaments, talofibular ligaments, calcaneofibular | | ligament, anddeltoid ligaments are intact. The sinus tarsi shows normal | | signal.IMPRESSION -Soft tissue ulcer along the lateral midfoot with associated signal | | alteration atthe base of the fifth metatarsal showing abnormal enhancement, consistent | | withosteomyelitis. No significant destructive change is observed at this time. Thereis | | mild diffuse edema of the foot suggestive of cellulitis.Dictated and Signed by: Rico | | MD Jack Electronically signed: 11/20/2017 3:25 PM | |The ankle anterior, posterior, lateral, and Achilles tendons are intact. The | |plantar fascia images normal signal. | | | |The tibiofibular ligaments, talofibular ligaments, calcaneofibular ligament, and | |deltoid ligaments are intact. The sinus tarsi shows normal signal. | | | |IMPRESSION - | |Soft tissue ulcer along the lateral midfoot with associated signal alteration at | |the base of the fifth metatarsal showing abnormal enhancement, consistent with | |osteomyelitis. No significant destructive change is observed at this time. There | |is mild diffuse edema of the foot suggestive of cellulitis. | | | |Dictated and Signed by: Rico Santiago MD | | Electronically signed: 11/20/2017 3:25 PM | + + + +---------+ + + | Performing | Address | City/State/Zipcode | Phone Number | | Organization | | | | + +---------+ + + | [facility] | | | | + +---------+ + + Respiratory Virus Panel, NAAT (11/20/2017 12:57 PM PDT) + + + + + + | Component | Value | Ref Range | Performed | Pathologist | | | | | At | Signature | + + + + + + | Influenza a | Not Detected | Not Detected | REFERENCE | | | | | | LAB [facility] | | | | | | - BKR | | + + + + + + | Influenza | Not Detected | Not Detected | REFERENCE | | | Virus A H1 | | | [facility] | | | RNA | | | - BKR | | + + + + + + | Influenza | Not Detected | Not Detected | REFERENCE | | | Virus A H3 | | | [facility] | | | RNA | | | - BKR | | + + + + + + | ADENOVIRUS | Not Detected | Not Detected | REFERENCE | | | | | | [facility] | | | | | | - BKR | | + + + + + + | Coronavirus | Not Detected | Not Detected | REFERENCE | | | HKU1 | | | [facility] | | | | | | - BKR | | + + + + + + | Coronavirus | Not Detected | Not Detected | REFERENCE | | | NL63 | | | [facility] | | | | | | - BKR | | + + + + + + | Coronavirus | Not Detected | Not Detected | REFERENCE | | | 229E | | | [facility] | | | | | | - BKR | | + + + + + + | Coronavirus | Not Detected | Not Detected | REFERENCE | | | OC43 | | | [facility] | | | | | | - BKR | | + + + + + + | Human | Not Detected | Not Detected | REFERENCE | | | Metapneumov | | | LAB [facility] | | | irus | | | - BKR | | + + + + + + | Rhinovirus/ | Not Detected | Not Detected | REFERENCE | | | Enterovirus | | | [facility] | | | | | | - BKR | | + + + + + + | Influenza A | Not Detected | Not Detected | REFERENCE | | | 2009 H1 | | | LAB [facility] | | | | | | - BKR | | + + + + + + | Influenza B | Not Detected | Not Detected | REFERENCE | | | | | | LAB [facility] | | | | | | - BKR | | + + + + + + | Parainfluen | Not Detected | Not Detected | REFERENCE | | | za 1 | | | [facility] | | | | | | - BKR | | + + + + + + | Parainfluen | Not Detected | Not Detected | REFERENCE | | | za 2 | | | [facility] | | | | | | - BKR | | + + + + + + | Parainfluen | Not Detected | Not Detected | REFERENCE | | | za 3 | | | [facility] | | | | | | - BKR | | + + + + + + | Parainfluen | Not Detected | Not Detected | REFERENCE | | | za 4 | | | [facility] | | | | | | - BKR | | + + + + + + | RSV | Not Detected | Not Detected | REFERENCE | | | | | | [facility] | | | | | | - BKR | | + + + + + + | Bordetella | Not Detected | Not Detected | REFERENCE | | | pertussis | | | [facility] | | | DNA | | | - BKR | | + + + + + + | Chlamydophi | Not Detected | Not Detected | REFERENCE | | | la | | | LAB [facility] | | | pneumoniae | | | - BKR | | | DNA | | | | | + + + + + + | Mycoplasma | Not Detected | Not Detected | REFERENCE | | | pneumoniae | | | [facility] | | | DNA | | | - BKR | | + + + + + + + + | Specimen | + + | Tissue - Entire | | nasopharynx (body | | structure) | + + + + + | Narrative | Performed At | + + + | Performed at: 01 - [facility] [place] [address], | REFERENCE LAB | | [place], [place] [id number] [employer]inery Assembler: Jurgen Costa MD, Phone: | NIKKI MONZON | | [phone] | | + + + + + + + + | Performing | Address | City/State/Zipcode | Phone Number | | Organization | | | | + + + + + | REFERENCE LAB | [address] | [place] [address] | [phone] | | [facility] | [address] | | | + + + + + POC Glucose (11/20/2017 11:54 AM PDT) + +---------+ + + + | Component | Value | Ref Range | Performed | Pathologist | | | | | At | Signature | + +---------+ + + + | Glucose, | 322 (H) | 70 - 109 mg/dL | [facility] | | | P[facility] | | | [facility] | | | | | | [facility] | | | | | | [facility] - | | | | | | LABORATORY | | + +---------+ + + + + + | Specimen | + + | Blood | + + + + + + + | Performing | Address | City/State/Zipcode | Phone Number | | Organization | | | | + + + + + | [facility] | [address] | [place] | [phone] | | [facility] | | [address] | | | - LABORATORY | | | | + + + + + Sedimentation Rate (11/20/2017 11:35 AM PDT) + +--------+ + + + | Component | Value | Ref Range | Performed | Pathologist | | | | | At | Signature | + +--------+ + + + | ESR | 59 (H) | <20 mm/hr | [facility] | | | | | | [facility] | | | | | | [facility] | | | | | | CENTER - | | | | | | LABORATORY | | + +--------+ + + + + + | Specimen | + + | Blood | + + + + + + + | Performing | Address | City/State/Zipcode | Phone Number | | Organization | | | | + + + + + | [facility] | [address] | [place] | [phone] | | [facility] | | [address] | | | - LABORATORY | | | | + + + + + C-Reactive Protein (11/20/2017 11:35 AM PDT) + + + + + + | Component | Value | Ref Range | Performed | Pathologist | | | | | At | Signature | + + + + + + | CRP | 185.35 (H) | <8.00 mg/L | [facility] | | | | | | [facility] [...] | + + + + + | [facility] | [address] | [place] | [phone] | | [facility] | | [address] | | | - LABORATORY | | | | + + + + + Culture, Wound, Smear (11/20/2017 8:25 AM PDT) + + + + + + | Component | Value | Ref Range | Performed | Pathologist | | | | | At | Signature | + + + + + + | Culture | 1+ Enterobacter | | [facility] | | | | aerogenesComment: | | [facility] | | | | Consider combination | | MEDICAL | | | | therapy for serious | | CENTER - | | | | infections.This organism | | LABORATORY | | | | is known to possess | | | | | | inducible | | | | | | beta-lactamases. | | | | | | Isolates may become | | | | | | resistant to all | | | | | | cephalosporins after | | | | | | initiation of therapy. | | | | | | Avoid | | | | | | beta-lactam/beta-lactama | | | | | | se inhibitory | | | | | | combinations. | | | | + + + + + + | Culture | 1+ Staphylococcus aureus | | [facility] | | | | | | [facility] | | | | | | MEDICAL | | | | | | CENTER - | | | | | | LABORATORY | | + + + + + + | Culture | 1+ Enterococcus | | [facility] | | | | faecalisComment: | | [facility] | | | | Combination therapy of | | MEDICAL | | | | ampicillin, penicillin, | | CENTER - | | | | or vancomycin (for | | LABORATORY | | | | susceptible strains), | | | | | | plus an aminoglycoside, | | | | | | is usually indicated for | | | | | | serious enterococcal | | | | | | infections, such as | | | | | | endocarditis, unless | | | | | | high-level resistance to | | | | | | both gentamicin and | | | | | | streptomycin is | | | | | | documented; such | | | | | | combinations are | | | | | | predicted to result in | | | | | | synergistic killing of | | | | | | the enterococcus. | | | | + + + + + + | Gram Stain | 1+ White Blood Cells | | [facility] | | | Result | | | [facility] | [facility] | [facility] | | | | | | [facility] - | | | | | | LABORATORY | | + + + + + + | Gram Stain | No organisms seen | | [facility] | | | Result | | [facility] | | | | | | [facility] - | | | | | | LAB[facility]ATORY | | + + + + + + + + | Specimen | + + | Tissue - Entire | | right foot (body | | structure) | + + + + +--------+ + | Organism | Antibiotic | Method | Susceptibility | + + +--------+ + | Klebsiella | Cefazolin | | >=64 ug/mL: | | (Enterobacter) | | | Resistant | | aerogenes | | | | + + +--------+ + | Klebsiella | Cefoxitin | | >=64 ug/mL: | | (Enterobacter) | | | Resistant | | aerogenes | | | | + + +--------+ + | Klebsiella | Ceftazidime | | <=1 ug/mL: | | (Enterobacter) | | | Sensitive | | aerogenes | | | | + + +--------+ + | Klebsiella | Ceftriaxone | | <=1 ug/mL: | | (Enterobacter) | | | Sensitive | | aerogenes | | | | + + +--------+ + | Klebsiella | Ciprofloxacin | | <=0.25 ug/mL: | | (Enterobacter) | | | Sensitive | | aerogenes | | | | + + +--------+ + | Klebsiella | Ertapenem | | <=0.5 ug/mL: | | (Enterobacter) | | | Sensitive | | aerogenes | | | | + + +--------+ + | Klebsiella | Gentamicin | | <=1 ug/mL: | | (Enterobacter) | | | Sensitive | | aerogenes | | | | + + +--------+ + | Klebsiella | Meropenem | | <=0.25 ug/mL: | | (Enterobacter) | | | Sensitive | | aerogenes | | | | + + +--------+ + | Klebsiella | Piperacillin + | | <=4 ug/mL: | | (Enterobacter) | Tazobactam | | Sensitive | | aerogenes | | | | + + +--------+ + | Klebsiella | Tobramycin | | <=1 ug/mL: | | (Enterobacter) | | | Sensitive | | aerogenes | | | | + + +--------+ + | Klebsiella | Trimethoprim + | | <=20 ug/mL: | | (Enterobacter) | Sulfamethoxazole | | Sensitive | | aerogenes | | | | + + +--------+ + | Staphylococcus | Ciprofloxacin | | >=8 ug/mL: | | aureus | | | Resistant | + + +--------+ + | Staphylococcus | Clindamycin | | 0.25 ug/mL: | | aureus | | | Sensitive | + + +--------+ + | Staphylococcus | Levofloxacin | | >=8 ug/mL: | | aureus | | | Resistant | + + +--------+ + | Staphylococcus | Linezolid | | 2 ug/mL: Sensitive | | aureus | | | | + + +--------+ + | Staphylococcus | Oxacillin | | <=0.25 ug/mL: | | aureus | | | Sensitive | + + +--------+ + | Staphylococcus | Penicillin G | | >=0.5 ug/mL: | | aureus | | | Resistant | + + +--------+ + | Staphylococcus | Rifampin | | <=0.5 ug/mL: | | aureus | | | Sensitive | + + +--------+ + | Staphylococcus | Tetracycline | | <=1 ug/mL: | | aureus | | | Sensitive | + + +--------+ + | Staphylococcus | Trimethoprim + | | <=10 ug/mL: | | aureus | Sulfamethoxazole | | Sensitive | + + +--------+ + | Staphylococcus | Vancomycin | | <=0.5 ug/mL: | | aureus | | | Sensitive | + + +--------+ + | Enterococcus | Ampicillin | | <=2 ug/mL: | | faecalis | | | Sensitive | + + +--------+ + | Enterococcus | Penicillin G | | 2 ug/mL: Sensitive | | faecalis | | | | + + +--------+ + | Enterococcus | Vancomycin | | 1 ug/mL: Sensitive | | faecalis | | | | + + +--------+ + + + + + + | Performing | Address | City/State/Zipcode | Phone Number | | Organization | | | | + + + + + | [facility] | [address] | [place] | [phone] | | [facility] | | [address] | | | - LABORATORY | | | | + + + + + POC Glucose (11/20/2017 6:58 AM PDT) + +---------+ + + + | Component | Value | Ref Range | Performed | Pathologist | | | | | At | Signature | + +---------+ + + + | Glucose, | 240 (H) | 70 - 109 mg/dL | [facility] | | | POC | | | [facility] | | | | | | [facility] | | | | | | [facility] - | | | | | | LABORATORY | | + +---------+ + + + + + | Specimen | + + | Blood | + + + + + + + | Performing | Address | City/State/Zipcode | Phone Number | | Organization | | | | + + + + + | [facility] | [address] | [place] | [phone] | | [facility] | | [address] | | | - LABORATORY | | | | + + + + + Procalcitonin (11/20/2017 4:45 AM PDT) + + + + + + | Component | Value | Ref Range | Performed | Pathologist | | | | | At | Signature | + + + + + + | Procalciton | 0.08 | <=0.50 ng/mL | [facility] | | | in | | | [facility] | | | | | | [facility] | | | | | | CENTER - | | | | | | LABORATORY | | + + + + + + | Comment | Comment: < 0.50 | | [facility] | | | | ng/mL:Procalcitonin | | [facility] | | | | levels below 0.50 ng/mL | | MEDICAL | | | | on the first day of | | CENTER - | | | | admission represents a | | LABORATORY | | | | low risk for progression | | | | | | to severe sepsis and/or | | | | | | septic shock, however | | | | | | these do not exclude an | | | | | | infection, because | | | | | | localized infections | | | | | | (without systemic signs) | | | | | | may also be associated | | | | | | with such low levels. | | | | | | > 2.00 | | | | | | ng/mL:Procalcitonin | | | | | | levels above 2.00 ng/mL | | | | | | on the first day of | | | | | | admission represents a | | | | | | high risk for | | | | | | progression to severe | | | | | | sepsis and/or septic | | | | | | shock. If the | | | | | | procalcitonin | | | | | | measurement is performed | | | | | | shortly after the | | | | | | systemic infection | | | | | | process has started | | | | | | (usually less than 6 | | | | | | hours), these values may | | | | | | still be low. As | | | | | | various non-infectious | | | | | | conditions are known to | | | | | | induce procalcitonin as | | | | | | well, procalcitonin | | | | | | levels between 0.50 | | | | | | ng/mL and 2.00 ng/mL | | | | | | should be reviewed | | | | | | carefully to take into | | | | | | account the specific | | | | | | clinical background and | | | | | | condition(s) of the | | | | | | individual patient. | | | | + + + + + + + + | Specimen | + + | Blood | + + + + + + + | Performing | Address | City/State/Zipcode | Phone Number | | Organization | | | | + + + + + | [facility] | [address] | [place] | [phone] | | [facility] | | [address] | | | - LABORATORY | | | | + + + + + B Type Natriuretic Peptide (11/20/2017 4:45 AM PDT) + +---------+ + + + | Component | Value | Ref Range | Performed | Pathologist | | | | | At | Signature | + +---------+ + + + | BNP | 101 (H) | <100 pg/mL | [facility] | | | | | | [facility] | | | | | | [facility] | | | | | | C[facility] - | | | | | | LABORATORY | | + +---------+ + + + + + | Specimen | + + | Blood | + + + + + + + | Performing | Address | City/State/Zipcode | Phone Number | | Organization | | | | + + + + + | [facility] | [address] | [place] | [phone] | | [facility] | | [address] | | | - LABORATORY | | | | + + + + + Magnesium (11/20/2017 4:45 AM PDT) + +-------+ + + + | Component | Value | Ref Range | Performed | Pathologist | | | | | At | Signature | + +-------+ + + + | Magnesium | 1.8 | 1.8 - 2.5 mg/dL | [facility] | | | | | | [facility] [...] | [facility] | [address] | [place] | [phone] | | [facility] | | [address] | | | - LABORATORY | | | | + + + + + CBC with Differential (11/20/2017 4:45 AM PDT) + + + + + + | Component | Value | Ref Range | Performed | Pathologist | | | | | At | Signature | + + + + + + | WBC | 19.4 (H) | 4.0 - 11.0 K/uL | [facility] | | | | | | [facility] | | | | | | [facility] | | | | | | C[facility] - | | | | | | LABORATORY | | + + + + + + | RBC | 4.69 | 4.30 - 5.70 | [facility] | | | | | M/uL | [facility] | | | | | | [facility] | | | | | | CENTER - | | | | | | LABORATORY | | + + + + + + | Hemoglobin | 11.2 (L) | 13.5 - 18.0 | [facility] | | | | | g/dL | [facility] | | | | | | [facility] | | | | | | C[facility] - | | | | | | LABORATORY | | + + + + + + | Hematocrit | 34.5 (L) | 40.0 - 51.0 % | [facility] | | | | | | [facility] | | | | | | [facility] | | | | | | C[facility] - | | | | | | LABORATORY | | + + + + + + | MCV | 73.7 (L) | 83.0 - 101.0 fL | [facility] | | | | | | [facility] | | | | | | [facility] | | | | | | C[facility] - | | | | | | LABORATORY | | + + + + + + | MCH | 23.9 (L) | 28.0 - 35.0 pg | [facility] | | | | | | [facility] | | | | | | [facility] | | | | | | CENTER - | | | | | | LABORATORY | | + + + + + + | MCHC | 32.4 | 32.0 - 36.0 | [facility] | | | | | g/dL | [facility] | | | | | | [facility] | | | | | | CENTER - | | | | | | LABORATORY | | + + + + + + | RDW-CV | 15.8 (H) | <15.0 % | [facility] | | | | | | [facility] | | | | [facility] | [facility] | | | | | | CENTER - | | | | | | LABORATORY | | + + + + + + | Platelet | 282 | 140 - 440 K/uL | [facility] | | | Count | | | [facility] | | | [facility] | | [facility] | | | | | | CENTER - | | | | | | LABORATORY | | + + + + + + | MPV | 8.6 | fL | [facility] | | | | | | [facility] | | | | | | [facility] | | | | | | CENTER - | | | | | | LABORATORY | | + + + + + + | % | 79.9 | 45.0 - 82.0 % | [facility] | | | Neutrophils | | | [facility] | | | | | | MED[facility] | | | | | | CENTER - | | | | | | LABORATORY | | + + + + + + | % | 9.3 (L) | 20.0 - 45.0 % | [facility] | | | Lymphocytes | | | [facility] | | | | | | [facility]ICAL | | | | | | CENTER - | | | | | | LABORATORY | | + + + + + + | % Monocytes | 9.3 | 4.0 - 12.0 % | [facility] | | | | | | [facility] | | | | | | [facility] | | | | | | CENTER - | | | | | | LABORATORY | | + + + + + + | % | 1.1 | 0.0 - 5.0 % | [facility] | | | Eosinophils | | | [facility] | | | | | | MEDICAL | | | | | | CENTER - | | | | | | LABORATORY | | + + + + + + | % Basophils | 0.4 | 0.0 - 1.0 % | [facility] | | | | | | [facility] | | | | | | [facility] | | | | | | CENTER - | | | | | | LABORATORY | | + + + + + + | Absolute | 15.50 (H) | 1.80 - 8.50 | [facility] | | | Neutrophils | | K/uL | [facility] | | | | | | [facility]ICAL | | | | | | CENTER - | | | | | | LABORATORY | | + + + + + + | Absolute | 1.80 | 0.60 - 3.20 | [facility] | | | Lymphocytes | | K/uL | [facility] | | | | | | [facility]ICAL | | | | | | CENTER - | | | | | | LABORATORY | | + + + + + + | Absolute | 1.80 (H) | 0.00 - 1.00 | [facility] | | | Monocytes | | K/uL | [facility] | | | | | | [facility] | | | | | | CENTER - | | | | | | LABORATORY | | + + + + + + | Absolute | 0.20 | 0.00 - 0.40 | [facility] | | | Eosinophils | | K/uL | [facility] | | | | | | [facility]ICAL | | | | | | CENTER - | | | | | | LABORATORY | | + + + + + + | Absolute | 0.10 | 0.00 - 0.10 | [facility] | | | Basophils | | K/uL | [facility] | | | | [...] | + + + + + | [facility] | [address] | [place] | [phone] | | [facility] | | [address] | | | - LABORATORY | | | | + + + + + Basic Metabolic Panel (11/20/2017 4:45 AM PDT) + + + + + + | Component | Value | Ref Range | Performed | Pathologist | | | | | At | Signature | + + + + + + | Na | 133 (L) | 136 - 149 | [facility] | | | | | mmol/L | [facility] | | | | | | [facility] | | | | | | CENTER - | | | | | | LABORATORY | | + + + + + + | K | 4.0 | 3.5 - 5.1 | [facility] | | | | | mmol/L | [facility] | | | | | | [facility] | | | | | | CENTER - | | | | | | LABORATORY | | + + + + + + | Cl | 101 | 98 - 109 mmol/L | [facility] | | | | | | [facility] | | | | [facility] | [facility] | | | | | | C[facility] - | | | | | | LABORATORY | | + + + + + + | CO2 | 24 | 24 - 31 mmol/L | [facility] | | | | | | [facility] | | | | | | [facility] | | | | | | CENTER - | | | | | | LABORATORY | | + + + + + + | Anion Gap | 8 | 3 - 16 mmol/L | [facility] | | | | | | [facility] | | [facility] | [facility] | [facility] | | | | | | CENTER - | | | | | | LABORATORY | | + + + + + + | Glucose | 249 (H) | 70 - 109 mg/dL | [facility] | | | | | | [facility] | | | | | | [facility] | | | | | | CENTER - | | | | | | LABORATORY | | + + + + + + | BUN | 15 | 7 - 18 mg/dL | [facility] | | | | | | [facility] | | | | | | [facility] | | | | | | CENTER - | | | | | | LABORATORY | | + + + + + + | Creatinine | 0.91 | 0.60 - 1.30 | [facility] | | | | | mg/dL | [facility] | | | | | | [facility]ICAL | | | | | | CENTER - | | | | | | LABORATORY | | + + + + + + | eGFR if not | >60Comment: GLOMERULAR | >=60 | [facility] | | | | FILTRATION | mL/min/1.73m2 | [facility] | | | DANISH | RATE,ESTIMATED | | MEDICAL | | | | mL/min/1.85t9Tvnd than | | CENTER - | | | | 60 Chronic kidney | | LABORATORY | | | | disease,if found over a | | | | | | 3-month period.Less than | | | | | | 15 Kidney failureFor | | | | | | | | | | | | Americans,multiply the | | | | | | calculated GFR by 1.21. | | | | | | | | | | + + + + + + | Calcium | 8.0 (L) | 8.3 - 10.5 | [facility] | | | | | mg/dL | [facility] | | | | | | MEDICAL | | | | | | CENTER - | | | | | | LABORATORY | | + + + + + + | BUN/Creatin | 16.5 | | [facility] | | | ine Ratio [...] + | [facility] | [address] | [place] | [phone] | | [facility] | | [address] | | | - LABORATORY | | | | + + + + + POC Glucose (11/20/2017 4:03 AM PDT) + +---------+ + + + | Component | Value | Ref Range | Performed | Pathologist | | | | | At | Signature | + +---------+ + + + | Glucose, | 253 (H) | 70 - 109 mg/dL | [facility] | | | POC | | | [facility] | | | | | | MEDICAL | | | | | | CENTER - | | | | | | LABORATORY | | + +---------+ + + + + + | Specimen | + + | Blood | + + + + + + + | Performing | Address | City/State/Zipcode | Phone Number | | Organization | | | | + + + + + | [facility] | [address] | [place] | [phone] | | [facility] | | [address] | | | - LABORATORY | | | | + + + + + POC Glucose (11/19/2017 9:17 PM PDT) + +---------+ + + + | Component | Value | Ref Range | Performed | Pathologist | | | | | At | Signature | + +---------+ + + + | Glucose, | 309 (H) | 70 - 109 mg/dL | [facility] | | | POC | | | [facility] | | | | | | [facility] | | | | | | CENTER - | | | | | | LABORATORY | | + +---------+ + + + + + | Specimen | + + | Blood | + + + + + + + | Performing | Address | City/State/Zipcode | Phone Number | | Organization | | | | + + + + + | [facility] | [address] | [place] | [phone] | | [facility] | | [address] | | | - LABORATORY | | | | + + + + + Culture, Wound, Smear (11/19/2017 8:31 PM PDT) + + + + + + | Component | Value | Ref Range | Performed | Pathologist | | | | | At | Signature | + + + + + + | Culture | 2+ Enterobacter | | [facility] | | | | aerogenesComment: | | [facility] | | | | Consider combination | | MEDICAL | | | | therapy for serious | | CENTER - | | | | infections.This organism | | LABORATORY | | | | is known to possess | | | | | | inducible | | | | | | beta-lactamases. | | | | | | Isolates may become | | | | | | resistant to all | | | | | | cephalosporins after | | | | | | initiation of therapy. | | | | | | Avoid | | | | | | beta-lactam/beta-lactama | | | | | | se inhibitory | | | | | | combinations. | | | | + + + + + + | Culture | 1+ Staphylococcus aureus | | [facility] | | | | | | [facility] | | | | | | [facility] | | | | | | CENTER - | | | | | | LABORATORY | | + + + + + + | Gram Stain | No white blood cells | | [facility] | | | Result | (PMNs) seen | | [facility] | | | | | | [facility] | | | | | | CENTER - | | | | | | LABORATORY | | + + + + + + | Gram Stain | 1+ Gram negative rods | | [facility] | | | Result | | | [facility] | | | | | | [facility] | | | | | | CENTER - | | | | | | LABORATORY | | + + + + + + + + | Specimen | + + | Tissue - Entire | | right lower leg | | (body structure) | + + + + +--------+ + | Organism | Antibiotic | Method | Susceptibility | + + +--------+ + | Klebsiella | Cefazolin | | >=64 ug/mL: | | (Enterobacter) | | | Resistant | | aerogenes | | | | + + +--------+ + | Klebsiella | Cefoxitin | | >=64 ug/mL: | | (Enterobacter) | | | Resistant | | aerogenes | | | | + + +--------+ + | Klebsiella | Ceftazidime | | <=1 ug/mL: | | (Enterobacter) | | | Sensitive | | aerogenes | | | | + + +--------+ + | Klebsiella | Ceftriaxone | | <=1 ug/mL: | | (Enterobacter) | | | Sensitive | | aerogenes | | | | + + +--------+ + | Klebsiella | Ciprofloxacin | | <=0.25 ug/mL: | | (Enterobacter) | | | Sensitive | | aerogenes | | | | + + +--------+ + | Klebsiella | Ertapenem | | <=0.5 ug/mL: | | (Enterobacter) | | | Sensitive | | aerogenes | | | | + + +--------+ + | Klebsiella | Gentamicin | | <=1 ug/mL: | | (Enterobacter) | | | Sensitive | | aerogenes | | | | + + +--------+ + | Klebsiella | Meropenem | | <=0.25 ug/mL: | | (Enterobacter) | | | Sensitive | | aerogenes | | | | + + +--------+ + | Klebsiella | Piperacillin + | | <=4 ug/mL: | | (Enterobacter) | Tazobactam | | Sensitive | | aerogenes | | | | + + +--------+ + | Klebsiella | Tobramycin | | <=1 ug/mL: | | (Enterobacter) | | | Sensitive | | aerogenes | | | | + + +--------+ + | Klebsiella | Trimethoprim + | | <=20 ug/mL: | | (Enterobacter) | Sulfamethoxazole | | Sensitive | | aerogenes | | | | + + +--------+ + + + | Comment: A | | previously reported | | component [ | | Ampicillin ] is no | | longer reported. | + + + + +---+ + | Staphylococcus | Ciprofloxacin | | >=8 ug/mL: | | aureus | | | Resistant | + + +---+ + | Staphylococcus | Clindamycin | | 0.25 ug/mL: | | aureus | | | Sensitive | + + +---+ + | Staphylococcus | Levofloxacin | | >=8 ug/mL: | | aureus | | | Resistant | + + +---+ + | Staphylococcus | Linezolid | | 2 ug/mL: Sensitive | | aureus | | | | + + +---+ + | Staphylococcus | Oxacillin | | <=0.25 ug/mL: | | aureus | | | Sensitive | + + +---+ + | Staphylococcus | Penicillin G | | >=0.5 ug/mL: | | aureus | | | Resistant | + + +---+ + | Staphylococcus | Rifampin | | <=0.5 ug/mL: | | aureus | | | Sensitive | + + +---+ + | Staphylococcus | Tetracycline | | <=1 ug/mL: | | aureus | | | Sensitive | + + +---+ + | Staphylococcus | Trimethoprim + | | <=10 ug/mL: | | aureus | Sulfamethoxazole | | Sensitive | + + +---+ + | Staphylococcus | Vancomycin | | <=0.5 ug/mL: | | aureus | | | Sensitive | + + +---+ + + + + + + | Performing | Address | City/State/Zipcode | Phone Number | | Organization | | | | + + + + + | [facility] | [address] | [place] | [phone] | | [facility] | | [address] | | | - LABORATORY | | | | + + + + + POC Glucose (11/19/2017 7:11 PM PDT) + +---------+ + + + | Component | Value | Ref Range | Performed | Pathologist | | | | | At | Signature | + +---------+ + + + | Glucose, | 333 (H) | 70 - 109 mg/dL | [facility] | | | POC | | | [facility] | | | | | | MEDICAL | | | | | | CENTER - | | | | | | LABORATORY | | + +---------+ + + + + + | Specimen | + + | Blood | + + + + + + + | Performing | Address | City/State/Zipcode | Phone Number | | Organization | | | | + + + + + | [facility] | [address] | [place] | [phone] | | [facility] | | [address] | | | - LABORATORY | | | | + + + + + POC Glucose (11/19/2017 7:09 PM PDT) + +---------+ + + + | Component | Value | Ref Range | Performed | Pathologist | | | | | At | Signature | + +---------+ + + + | Glucose, | 346 (H) | 70 - 109 mg/dL | [facility] | | | POC | | | [facility] | | | | | | [facility] | | | | | | CENTER - | | | | | | LABORATORY | | + +---------+ + + + + + | Specimen | + + | Blood | + + + + + + + | Performing | Address | City/State/Zipcode | Phone Number | | Organization | | | | + + + + + | [facility] | [address] | [place] | [phone] | | [facility] | | [address] | | | - LABORATORY | | | | + + + + + Lactic Acid (11/19/2017 3:37 PM PDT) + +-------+ + + + | Component | Value | Ref Range | Performed | Pathologist | | | | | At | Signature | + +-------+ + + + | Lactate | 1.3 | 0.5 - 2.2 | [facility] | | | | | mmol/L | [facility] | | | | [...] | [facility] | [address] | [place] | [phone] | | [facility] | | [address] | | | - LABORATORY | | | | + + + + + Culture, Blood (11/19/2017 3:37 PM PDT) + + + + + + | Component | Value | Ref Range | Performed | Pathologist | | | | | At | Signature | + + + + + + | Culture | No growth after 5 days | | [facility] | | | | incubation. | | [facility] | | | | | | [facility] [...] | [facility] | [address] | [place] | [phone] | | [facility] | | [address] | | | - LABORATORY | | | | + + + + + Culture, Blood (11/19/2017 3:06 PM PDT) + + + + + + | Component | Value | Ref Range | Performed | Pathologist | | | | | At | Signature | + + + + + + | Culture | No growth after 5 days | | [facility] | | | | incubation. | | [facility] | | | [...] | [facility] | [address] | [place] | [phone] | | [facility] | | [address] | | | - LABORATORY | | | | + + + + + Basic Metabolic Panel (11/19/2017 3:06 PM PDT) + + + + + + | Component | Value | Ref Range | Performed | Pathologist | | | | | At | Signature | + + + + + + | Na | 132 (L) | 136 - 149 | [facility] | | | | | mmol/L | [facility] | | | | | | MEDICAL | | | | | | CENTER - | | | | | | LABORATORY | | + + + + + + | K | 4.6 | 3.5 - 5.1 | [facility] | | | | | mmol/L | [facility] | | | | | | MEDICAL | | | | | | CENTER - | | | | | | LABORATORY | | + + + + + + | Cl | 98 | 98 - 109 mmol/L | [facility] | | | | | | [facility] | | | | | | MEDICAL | | | | | | CENTER - | | | | | | LABORATORY | | + + + + + + | CO2 | 28 | 24 - 31 mmol/L | [facility] | | | | | | [facility] | | | | | | MEDICAL | | | | | | CENTER - | | | | | | LABORATORY | | + + + + + + | Anion Gap | 6 | 3 - 16 mmol/L | [facility] | | | | | | [facility] | | | | | | [facility]ICAL | | | | | | CENTER - | | | | | | LABORATORY | | + + + + + + | Glucose | 243 (H) | 70 - 109 mg/dL | [facility] | | | | | | [facility] | | | | | | MEDICAL | | | | | | CENTER - | | | | | | LABORATORY | | + + + + + + | BUN | 16 | 7 - 18 mg/dL | [facility] | | | | | | [facility] | | | | | | [facility] | | | | | | CENTER - | | | | | | LABORATORY | | + + + + + + | Creatinine | 0.76 | 0.60 - 1.30 | [facility] | | | | | mg/dL | [facility] | | | | | | MEDICAL | | | | | | CENTER - | | | | | | LABORATORY | | + + + + + + | eGFR if not | >60Comment: GLOMERULAR | >=60 | [facility] | | | | FILTRATION | mL/min/1.73m2 | [facility] | | | [facility] | RATE,ESTIMATED | | MEDICAL | | | | mL/min/1.90r8Outo than | | CENTER - | | | | 60 Chronic kidney | | LABORATORY | | | | disease,if found over a | | | | | | 3-month period.Less than | | | | | | 15 Kidney failureFor | | | | | | | | | | | | Americans,multiply the | | | | | | calculated GFR by 1.21. | | | | | | | | | | + + + + + + | Calcium | 8.2 (L) | 8.3 - 10.5 | [facility] | | | | | mg/dL | [facility] | | | [facility] | [facility] | | | | | | C[facility] - | | | | | | LABORATORY | | + + + + + + | BUN/Creatin | 21.1 | | [facility] | | | ine Ratio | | | [facility] | | | | | | [facility] [...] + | [facility] | [address] | [place] | [phone] | | [facility] | | [id number] | | | - LABORATORY | | | | + + + + + CBC with Differential (11/19/2017 3:06 PM PDT) + + + + + + | Component | Value | Ref Range | Performed | Pathologist | | | | | At | Signature | + + + + + + | WBC | 23.6 (H) | 4.0 - 11.0 K/uL | [facility] | | | | | | [facility] | | | [facility] | [facility] | | | | | | C[facility] - | | | | | | LABORATORY | | + + + + + + | RBC | 5.06 | 4.30 - 5.70 | [facility] | | | | | M/uL | [facility] | | | [facility] | | [facility] | | | | | | CENTER - | | | | | | LABORATORY | | + + + + + + | Hemoglobin | 12.2 (L) | 13.5 - 18.0 | [facility] | | | | | g/dL | [facility] | | | | | | [facility] | | | | | | CENTER - | | | | | | LABORATORY | | + + + + + + | Hematocrit | 37.3 (L) | 40.0 - 51.0 % | [facility] | | | | | | [facility] | | | | | | [facility] | | | | | | [facility] - | | | | | | LABORATORY | | + + + + + + | MCV | 73.7 (L) | 83.0 - 101.0 fL | [facility] | | | | | | [facility] | | | | | | [facility] | | | | | | [facility] - | | | | | | LABORATORY | | + + + + + + | MCH | 24.2 (L) | 28.0 - 35.0 pg | [facility] | | | | | | [facility] | | | | | | [facility] | | | | | | [facility] - | | | | | | LABORATORY | | + + + + + + | MCHC | 32.8 | 32.0 - 36.0 | [facility] | | | | | g/dL | [facility] | | | | | | [facility] | | | | | | CENTER - | | | | | | LABORATORY | | + + + + + + | RDW-CV | 15.6 (H) | <15.0 % | [facility] | | | | | | [facility] | | | | [facility] | [facility] | | | | | | [facility] - | | | | | | LABORATORY | | + + + + + + | Platelet | 278 | 140 - 440 K/uL | [facility] | | | Count | | | [facility] | [facility] | | | | [facility] | [facility] - | | | | | | LABORATORY | | + + + + + + | MPV | 8.7 | fL | [facility] | | | | | | [facility] | [facility] | [facility] | | | | | | [facility] - | | | | | | LABORATORY | | + + + + + + | % | 85.0 (H) | 45.0 - 82.0 % | [facility] | | | Neutrophils | | | [facility] | | | | | | [facility] | | | | | | C[facility] - | | | | | | LABORATORY | | + + + + + + | % | 5.4 (L) | 20.0 - 45.0 % | [facility] | | | Lymphocytes | | | [facility] | | | | | | [facility] | | | | | | CENTER - | | | | | | LABORATORY | | + + + + + + | % Monocytes | 9.1 | 4.0 - 12.0 % | [facility] | | | | | | [facility] | [facility] | [facility] | | | | | | [facility] - | | | | | | LABORATORY | | + + + + + + | % | 0.2 | 0.0 - 5.0 % | [facility] | | | Eosinophils | | | [facility] | | | | | | [facility] | | | | | | CENTER - | | | | | | LABORATORY | | + + + + + + | % Basophils | 0.3 | 0.0 - 1.0 % | [facility] | | | | | | [facility] | | [facility] | [facility] | | | | | | [facility] - | | | | | | LABORATORY | | + + + + + + | Absolute | 20.10 (H) | 1.80 - 8.50 | [facility] | | | Neutrophils | | K/uL | [facility] | | | | | | [facility] | | | | | | CENTER - | | | | | | LABORATORY | | + + + + + + | Absolute | 1.30 | 0.60 - 3.20 | [facility] | | | Lymphocytes | | K/uL | [facility] | | | | | | [facility] | | | | | | CENTER - | | | | | | LABORATORY | | + + + + + + | Absolute | 2.20 (H) | 0.00 - 1.00 | [facility] | | | Monocytes | | K/uL | [facility] | | | | | | [facility] | | | | | | CENTER - | | | | | | LABORATORY | | + + + + + + | Absolute | 0.10 | 0.00 - 0.40 | [facility] | | | Eosinophils | | K/uL | [facility] | | | | | | [facility] | | | | | | CENTER - | | | | | | LABORATORY | | + + + + + + | Absolute | 0.10 | 0.00 - 0.10 | [facility] | | | Basophils | | K/uL | [facility] | | | | | | MEDICAL [...] + | [facility] | [address] | [place] | [phone] | | [facility] | | [address] | | | - LABORATORY | | | | + + + + + XR Chest AP Portable (11/19/2017 2:36 PM PDT) + + | Specimen | + + | | + + + + + | Narrative | Performed At | + + + | XR CHEST AP PORTABLE 11/19/2017 1:47 PM HISTORY: SHOULDER PAIN | [facility] | | HIP PAIN. COMPARISON: None. Findings: The heart is enlarged. | | | Aorta is normal. Mediastinum is unremarkable. Pulmonary vasculature | | | is prominent with cephalization. Mild diffuse pulmonary edema is | | | seen. Probable small bilateral pleural effusions are observed along | | | with moderate left compressive atelectasis. Moderate right curvature | | | of the thoracic spine is seen. IMPRESSION - Findings consistent | | | with CHF or fluid overload. Dictated and Signed by: Gregorio Miguel MD Electronically signed: 11/19/2017 4:17 PM | | + + + + + | Procedure Note | + + | El[facility] Ornelas Results In - 11/19/2017 4:20 PM PDT XR CHEST AP PORTABLE 11/19/2017 1:47 PM | | | | HISTORY: SHOULDER PAIN | | HIP PAIN. | | | | COMPARISON: None. | | | | Findings: | | The heart is enlarged. Aorta is normal. Mediastinum is unremarkable. Pulmonary | | vasculature is prominent with cephalization. Mild diffuse pulmonary edema is | | seen. Probable small bilateral pleural effusions are observed along with | | moderate left compressive atelectasis. Moderate right curvature of the thoracic | | spine is seen. | | | | IMPRESSION - | | Findings consistent with CHF or fluid overload. | | | | Dictated and Signed by: Rico Santiago MD | | Electronically signed: 11/19/2017 4:17 PM | + + + +---------+ + + | Performing | Address | City/State/Zipcode | Phone Number | | Organization | | | | + +---------+ + + | [facility] | | | | + +---------+ + + XR Hip Left 2-3 Views (11/19/2017 2:36 PM PDT) + + | Specimen | + + | | + + + + + | Narrative | Performed At | + + + | XR HIP LEFT 2-3 VIEWS 11/19/2017 1:47 PM HISTORY: SHOULDER PAIN | [facility] | | HIP PAIN. COMPARISON: None. FINDINGS: The left hip shows no | | | acute findings. There are moderate degenerative changes of the | | | bilateral hips. Right curvature of the lumbar spine is partially | | | imaged along with moderate spondylosis. Bone mineralization is | | | decreased. There is moderate atherosclerosis. IMPRESSION - No | | | acute osseous findings. Dictated and Signed by: Rico Santiago MD | | | Electronically signed: 11/19/2017 4:16 PM | | + + + + + | Procedure Note | + + | Elle, Rad Results In - 11/19/2017 4:19 PM PDT XR HIP LEFT 2-3 VIEWS 11/19/2017 1:47 PM | | | | HISTORY: SHOULDER PAIN | | HIP PAIN. | | | | COMPARISON: None. | | | | FINDINGS: | | The left hip shows no acute findings. There are moderate degenerative changes of | | the bilateral hips. Right curvature of the lumbar spine is partially imaged | | along with moderate spondylosis. Bone mineralization is decreased. There is | | moderate atherosclerosis. | | | | IMPRESSION - | | No acute osseous findings. | | | | Dictated and Signed by: Rico Santiago MD | | Electronically signed: 11/19/2017 4:16 PM | + + + +---------+ + + | Performing | Address | City/State/Zipcode | Phone Number | | Organization | | | | + +---------+ + + | [facility] | | | | + +---------+ + + XR Shoulder Left 2 + Vw (11/19/2017 2:36 PM PDT) + + | Specimen | + + | | + + + + + | Narrative | Performed At | + + + | XR SHOULDER LEFT 2 + VW 11/19/2017 1:47 PM HISTORY: SHOULDER PAIN | [facility] | | HIP PAIN. COMPARISON: None. FINDINGS: There are no acute | | | osseous findings. There are mild degenerative changes of the AC | | | joint. The glenohumeral joint is intact. Bone mineralization is | | | decreased. Soft tissue structures are unremarkable. IMPRESSION - | | | Mild degenerative changes of the AC joint. Dictated and Signed | | | by: Rico Santiago MD Electronically signed: 11/19/2017 4:18 PM | | + + + + + | Procedure Note | + + | Elle, Rad Results In - 11/19/2017 4:21 PM PDT XR SHOULDER LEFT 2 + VW 11/19/2017 1:47 | | PMHISTORY: SHOULDER PAINHIP PAIN.COMPARISON: None.FINDINGS:There are no acute osseous | | findings. There are mild degenerative changes of theAC joint. The glenohumeral joint is | | intact. Bone mineralization is decreased.Soft tissue structures are unremarkable. | | IMPRESSION -Mild degenerative changes of the AC joint.Dictated and Signed by: Rico | | MD Jack Electronically signed: 11/19/2017 4:18 PM | | | |FINDINGS: | |There are no acute osseous findings. There are mild degenerative changes of the | |AC joint. The glenohumeral joint is intact. Bone mineralization is decreased. | |Soft tissue structures are unremarkable. | | | |IMPRESSION - | |Mild degenerative changes of the AC joint. | | | |Dictated and Signed by: Rico Santiago MD | | Electronically signed: 11/19/2017 4:18 PM | + + + +---------+ + + | Performing | Address | City/State/Zipcode | Phone Number | | Organization | | | | + +---------+ + + | [facility] | | | | + +---------+ + + Streptococcus Pneumoniae Ag, Urine (11/19/2017 2:16 PM PDT) + + + + + + | Component | Value | Ref Range | Performed | Pathologist | | | | | At | Signature | + + + + + + | Specimen | Urine | | REFERENCE | | | Source | | | LAB [facility] | | | | | | - [facility] | | + + + + + + | Streptococc | Negative | Negative | REFERENCE | | | us | | | LAB [facility] | | | pneumoniae | | | - [facility] | | + + + + + + | Body Fluid | Not Indicated | | REFERENCE | | | Culture, | | | LAB [facility] | | | Sterile | | | - [facility] | | + + + + + + | Organism ID | Not indicated. | | REFERENCE | | | | | | LAB [facility] | | | | | | - [facility] | | + + + + + + | Please note | CommentComment: [place] | | REFERENCE | | | | of [place] [employer] | | LAB [facility] | | | | standards require a | | - [facility] | | | | culture to beperformed | | | | | | on CSF specimens | | | | | | submitted for bacterial | | | | | | antigen testing.(CAP | | | | | | [id number]) Urine | | | | | | specimens will not be | | | | | | cultured. | | | | + + + + + + + + | Specimen | + + | Urine | + + + + + | Narrative | Performed At | + + + | Performed at: [address], | REFERENCE LAB | | [place], [place] [id number] [employer] Machinery Assembler: Christ Deal MD, Phone: | [facility] | | [phone] | | + + + + + + + + | Performing | Address | City/State/Zipcode | Phone Number | | Organization | | | | + + + + + | REFERENCE LAB | [id number] | [place] [address] | [phone] | | [facility] | [address] | | | + + + + + Culture, Urine (11/19/2017 2:16 PM PDT) + + + + + + | Component | Value | Ref Range | Performed | Pathologist | | | | | At | Signature | + + + + + + | Culture | 10,000 CFU/ml Mixed Gram | | [facility] | | | | Positive FloraComment: | | [facility] | | | | Suggests contamination | | MEDICAL | | | | with urogenital or skin | | CENTER - | | | | salvador.No further work-up | | LABORATORY | | | | to follow. | | | | + + + + + + + + | Specimen | + + | Urine - Urine | | specimen (specimen) | + + + + + + + | Performing | Address | City/State/Zipcode | Phone Number | | Organization | | | | + + + + + | [facility] | [address] | [place], [place] | [phone] | | [facility] | | [address] | | | - LABORATORY | | | | + + + + + Urinalysis with Microscopic with Culture if Indicated (11/19/2017 2:16 PM PDT) + + + + + + | Component | Value | Ref Range | Performed | Pathologist | | | | | At | Signature | + + + + + + | Color, | Yellow | Light Yellow, | [facility] | | | Urine | | Yellow, Straw | [facility] | | | | | | MEDICAL | | | | | | CENTER - | | | | | | LABORATORY | | + + + + + + | Clarity | Clear | Clear | [facility] | | | | | | [facility] | | | | | | MEDICAL | | | | | | CENTER - | | | | | | LABORATORY | | + + + + + + | pH, Urine | 5.0 | 5.0 - 8.0 | [facility] | | | | | | [facility] | | | | | | MEDICAL | | | | | | CENTER - | | | | | | LABORATORY | | + + + + + + | Specific | 1.017 | 1.001 - 1.030 | [facility] | | | [place] | | | [facility] | | | | | | MEDICAL | | | | | | CENTER - | | | | | | LABORATORY | | + + + + + + | Protein, | 30 mg/dL (A) | Negative | [facility] | | | Urine | | | [facility] | | | | | | MEDICAL | | | | | | CENTER - | | | | | | LABORATORY | | + + + + + + | Blood, | Negative | Negative | [facility] | | | Urine | | | [facility] | | | | | | MEDICAL | | | | | | CENTER - | | | | | | LABORATORY | | + + + + + + | Glucose, | >=500 mg/dL (A) | Negative | [facility] | | | Urine | | | [facility] | | | | | | MEDICAL | | | | | | CENTER - | | | | | | LABORATORY | | + + + + + + | Ketones, | Negative | Negative | [facility] | | | Urine | | | [facility] | | | | | | MEDICAL | | | | | | CENTER - | | | | | | LABORATORY | | + + + + + + | Bilirubin, | Negative | Negative | [facility] | | | Urine | | | [facility] | | | | | | MEDICAL | | | | | | CENTER - | | | | | | LABORATORY | | + + + + + + | Nitrite, | Negative | Negative | [facility] | | | Urine | | | [facility] | | | | | | MEDICAL | | | | | | CENTER - | | | | | | LABORATORY | | + + + + + + | Leukocyte | Negative | Negative | [facility] | | | Esterase, | | | [facility] | | | Urine | | | MEDICAL | | | | | | CENTER - | | | | | | LABORATORY | | + + + + + + | Urobilinoge | 2.0 mg/dL (A) | 0.2 mg/dL, 1.0 | [facility] | | | n, Urine | | mg/dL, Negative | [facility] | | | | | | MEDICAL | | | | | | CENTER - | | | | | | LABORATORY | | + + + + + + | WBC UA | 0-2 | 0 - 2 /HPF | [facility] | | | | | | [facility] | | | | | | [facility]ICAL | | | | | | CENTER - | | | | | | LABORATORY | | + + + + + + | RBC UA | 0-2 | 0 - 2 /HPF | [facility] | | | | | | [facility] | | | | | | [facility]ICAL | | | | | | CENTER - | | | | | | LABORATORY | | + + + + + + | SQUAMOUS | 0-2 | 0 - 2 /LPF | [facility] | | | EPITHELIAL | | | [facility] | | | UA | | | MEDICAL | | | | | | CENTER - | | | | | | LABORATORY | | + + + + + + | BACTERIA UA | Negative | Negative /HPF | [facility] | | | | | | [facility] | | | | | | MEDICAL | | | | | | CENTER - | | | | | | LABORATORY | | + + + + + + | MUCUS UA | Present (A) | Negative /LPF | [facility] | | | | | | [facility] | | | | | | MEDICAL | | | | | | CENTER - | | | | | | LABORATORY | | + + + + + + | URINE | Urine Culture Not | | [facility] | | | COMMENT | Indicated | | [facility] | | | [...] + | [facility] | [address] | [place] | [phone] | | [facility] | | [address] | | | - LABORATORY | | | | + + + + + documented in this encounter Visit Diagnoses + + | Diagnosis | + + | Sepsis (HCC) - Primary | + + | Fall, initial encounter | + + | Fever, unspecified fever cause | + + | Pneumonia due to infectious organism, unspecified laterality, unspecified part of lung | + + | Sepsis, due to unspecified organism | + + | Insulin dependent diabetes mellitus (HCC) Type II or unspecified type diabetes | | mellitus without mention of complication, not stated as uncontrolled | + + | Other chronic osteomyelitis of right foot (HCC) | + + | Peripheral vascular disease (HCC) Peripheral vascular disease, unspecified | + + | Osteomyelitis of right foot (HCC) Unspecified osteomyelitis, ankle and foot | + + | Class 1 obesity with serious comorbidity in adult | + + | Essential hypertension Unspecified essential hypertension | + + documented in this encounter Administered Medications + +--------+---------+------+------+------+ | Medication Order | MAR | Action | Dose | Rate | Site | | | Action | Date | | | | + +--------+---------+------+------+------+ + +---+ | acetaminophen (TYLENOL) tablet | | | 650 mg 650 mg, Oral, EVERY 4 | | | HOURS PRN, Pain, or fever >= 38.6 | | | C (101.5 F), Starting 11/19/17 | | | at 1727 | | + +---+ | | | + +---+ + +-------+ +-------+---+---+ | albuterol-ipratropium 2.5-0.5 | Given | 11/26/19 | 3 mLs | | | | mg/3 mL nebulizer solution 3 mL | | 18 3:30 | | | | | 3 mL, Nebulization, RT Q6H, First | | PM PDT | | | | | dose on 11/19/17 at 1745 | | | | | | + +-------+ +-------+---+---+ +-------+ +-------+---+---+ | Given | 11/26/19 | 3 mLs | | | | | 18 8:47 | | | | | | AM PDT | | | | +-------+ +-------+---+---+ | Given | 11/25/19 | 3 mLs | | | | | 18 8:26 | | | | | | PM PDT | | | | +-------+ +-------+---+---+ +---+---+ | | | +---+---+ + +-------+ +------+---+---+ | amLODIPine (NORVASC) tablet 5 | Given | 11/26/19 | 5 mg | | | | mg 5 mg, Oral, DAILY, First dose | | 18 3:09 | | | | | on Tue11/25/17 at 1315 | | PM PDT | | | | + +-------+ +------+---+---+ +---+---+ | | | +---+---+ + +-------+ +--------+---+---+ | aspirin tablet 325 mg 325 mg, | Given | 11/26/19 | 325 mg | | | | Oral, DAILY, First dose on Sun | | 18 8:57 | | | | | 11/20/17 at 0900 | | AM PDT | | | | + +-------+ +--------+---+---+ +-------+ +--------+---+---+ | Given | 11/25/19 | 325 mg | | | | | 18 8:44 | | | | | | AM PDT | | | | +-------+ +--------+---+---+ | Given | 11/24/19 | 325 mg | | | | | 18 8:09 | | | | | | AM PDT | | | | +-------+ +--------+---+---+ +---+---+ | | | +---+---+ + +-------+ +-------+---+---+ | atorvaSTATin (LIPITOR) tablet | Given | 11/25/19 | 40 mg | | | | 40 mg 40 mg, Oral, NIGHTLY, | | 18 9:21 | | | | | First dose on 11/19/17 at 2100 | | PM PDT | | | | + +-------+ +-------+---+---+ +-------+ +-------+---+---+ | Given | 11/24/19 | 40 mg | | | | | 18 8:11 | | | | | | PM PDT | | | | +-------+ +-------+---+---+ | Given | 11/23/19 | 40 mg | | | | | 18 9:14 | | | | | | PM PDT | | | | +-------+ +-------+---+---+ +---+---+ | | | +---+---+ + +---------+ +--------+-------+---+ | ciprofloxacin in dextrose | New Bag | 11/23/19 | 400 mg | 200 | | | (CIPRO) IVPB 400 mg 400 mg, | | 18 10:29 | | mL/hr | | | Intravenous, Administer over 1 | | AM PDT | | | | | Hours, EVERY 12 HOURS (2 times | | | | | | | per day), First dose on Tue | | | | | | | 11/21/17 at 1400, Indications: | | | | | | | Diabetic Foot Infection, | | | | | | | Osteomyelitis | | | | | | + +---------+ +--------+-------+---+ +---------+ +--------+-------+---+ | New Bag | 11/22/19 | 400 mg | 200 | | | | 18 8:29 | | mL/hr | | | | PM PDT | | | | +---------+ +--------+-------+---+ | New Bag | 11/22/19 | 400 mg | 200 | | | | 18 2:37 | | mL/hr | | | | PM PDT | | | | +---------+ +--------+-------+---+ + +---+ | | | + +---+ | dextrose 50% injection 12.5 g | | | 12.5 g, Intravenous, PRN, Low | | | Blood Sugar, Starting 11/19/17 | | | at 1727 | | + +---+ | | | + +---+ + +-------+ +--------+---+---+ | docusate sodium (COLACE) | Given | 11/26/19 | 200 mg | | | | capsule 200 mg 200 mg, Oral, | | 18 8:58 | | | | | DAILY, First dose on 11/19/17 | | AM PDT | | | | | at 1745, Hold for BM, | | | | | | + +-------+ +--------+---+---+ +-------+ +--------+---+---+ | Given | 11/25/19 | 200 mg | | | | | 18 8:44 | | | | | | AM PDT | | | | +-------+ +--------+---+---+ | Given | 11/24/19 | 200 mg | | | | | 18 8:09 | | | | | | AM PDT | | | | +-------+ +--------+---+---+ +---+---+ | | | +---+---+ + +-------+ +-------+---+---+ | DULoxetine (CYMBALTA) DR | Given | 11/26/19 | 30 mg | | | | capsule 30 mg 30 mg, Oral, 2 | | 18 8:58 | | | | | TIMES DAILY, First dose on Sat | | AM PDT | | | | | 11/19/17 at 2100, Do not open | | | | | | | capsule., | | | | | | + +-------+ +-------+---+---+ +-------+ +-------+---+---+ | Given | 11/25/19 | 30 mg | | | | | 18 9:21 | | | | | | PM PDT | | | | +-------+ +-------+---+---+ | Given | 11/25/19 | 30 mg | | | | | 18 8:43 | | | | | | AM PDT | | | | +-------+ +-------+---+---+ +---+---+ | | | +---+---+ + +---------+ +-----+-------+---+ | ertapenem (INVanz) 1 g in | New Bag | 11/26/19 | 1 g | 100 | | | sodium chloride 0.9% 50 mL IVPB | | 18 3:24 | | mL/hr | | | 1 g, Intravenous, Administer over | | PM PDT | | | | | 30 Minutes, EVERY 24 HOURS | | | | | | | (Daily), First dose on Tue11/22/17 | | | | | | | at 1530, Activate system and mix | | | | | | | before use., Indications: | | | | | | | Diabetic Foot Infection | | | | | | + +---------+ +-----+-------+---+ +---------+ +-----+-------+---+ | New Bag | 11/25/19 | 1 g | 100 | | | | 18 4:56 | | mL/hr | | | | PM PDT | | | | +---------+ +-----+-------+---+ | New Bag | 11/24/19 | 1 g | 100 | | | | 18 4:48 | | mL/hr | | | | PM PDT | | | | +---------+ +-----+-------+---+ +---+---+ | | | +---+---+ + +-------+ +-------+---+---+ | furosemide (LASIX) injection 20 | Given | 11/22/19 | 20 mg | | | | mg 20 mg, Intravenous, DAILY, | | 18 9:13 | | | | | First dose on 11/20/17 at 1615 | | AM PDT | | | | + +-------+ +-------+---+---+ +-------+ +-------+---+---+ | Given | 11/21/19 | 20 mg | | | | | 18 4:21 | | | | | | PM PDT | | | | +-------+ +-------+---+---+ +---+---+ | | | +---+---+ + +-------+ +--------+---+---+ | gabapentin (NEURONTIN) capsule | Given | 11/26/19 | 800 mg | | | | 800 mg 800 mg, Oral, 3 TIMES | | 18 3:09 | | | | | DAILY, First dose on 11/19/17 | | PM PDT | | | | | at 2100 | | | | | | + +-------+ +--------+---+---+ +-------+ +--------+---+---+ | Given | 11/26/19 | 800 mg | | | | | 18 8:57 | | | | | | AM PDT | | | | +-------+ +--------+---+---+ | Given | 11/25/19 | 800 mg | | | | | 18 9:21 | | | | | | PM PDT | | | | +-------+ +--------+---+---+ +---+---+ | | | +---+---+ + +-------+ +--------+---+---+ | gadobutrol (GADAVIST) injection | Given | 11/21/19 | 10 mLs | | | | 10 mL 10 mL, Intravenous, ONCE | | 18 2:02 | | | | | PRN, Other, Starting 11/20/17 | | PM PDT | | | | | at 1402, For 1 dose, MRI | | | | | | + +-------+ +--------+---+---+ +---+---+ | | | +---+---+ + +-------+ +--------+---+ + | heparin 5,000 units/mL | Given | 11/26/19 | 5,000 | | Abdomen- | | injection 5,000 Units 5,000 | | 18 8:58 | Units | | LLQ | | Units, Subcutaneous, EVERY 12 | | AM PDT | | | | | HOURS (2 times per day), First | | | | | | | dose on 11/19/17 at 2100 | | | | | | + +-------+ +--------+---+ + +-------+ +--------+---+ + | Given | 11/25/19 | 5,000 | | Abdomen- | | | 18 9:21 | Units | | RLQ | | | PM PDT | | | | +-------+ +--------+---+ + | Given | 11/25/19 | 5,000 | | Abdomen- | | | 18 8:43 | Units | | RLQ | | | AM PDT | | | | +-------+ +--------+---+ + +---+---+ | | | +---+---+ + +-------+ +---------+---+---+ | HYDROcodone-acetaminophen | Given | 11/26/19 | 2 | | | | (NORCO) 5-325 mg per tablet 1-2 | | 18 3:34 | tablets | | | | tablet 1-2 tablet, Oral, EVERY 4 | | AM PDT | | | | | HOURS PRN, Pain, Starting Sat | | | | | | | 11/19/17 at 1727, If ineffective | | | | | | | use [place] 10/325 if ordered. If | | | | | | | not tolerated, use Percocet then | | | | | | | Oxycodone if ordered., | | | | | | + +-------+ +---------+---+---+ +-------+ + +---+---+ | Given | 11/25/19 | 2 | | | | | 18 5:02 | tablets | | | | | PM PDT | | | | +-------+ + +---+---+ | Given | 11/25/19 | 1 tablet | | | | | 18 12:21 | | | | | | PM PDT | | | | +-------+ + +---+---+ +---+---+ | | | +---+---+ + +-------+ +--------+---+---+ | HYDROmorphone (DILAUDID) 1 | Given | 11/20/19 | 0.5 mg | | | | mg/mL injection 0.5 mg 0.5 mg, | | 18 1:57 | | | | | Intravenous, ONCE, 11/19/17 at | | PM PDT | | | | | 1345, For 1 dose | | | | | | + +-------+ +--------+---+---+ +---+---+ | | | +---+---+ + +-------+ +---------+---+---+ | HYDROmorphone (DILAUDID) | Given | 11/22/19 | 0.25 mg | | | | injection 0.25-1 mg 0.25-1 mg, | | 18 9:24 | | | | | Intravenous, EVERY 4 HOURS PRN, | | PM PDT | | | | | Severe Pain, breakthrough, | | | | | | | Starting 11/19/17 at 1727, Use | | | | | | | IV morphine first if ordered. | | | | | | | Slow IV push, not faster than | | | | | | | 0.25 mg/minute. If ineffective or | | | | | | | not tolerated and unable to take | | | | | | | oral opioid - contact MD., | | | | | | + +-------+ +---------+---+---+ +-------+ +---------+---+---+ | Given | 11/22/19 | 0.25 mg | | | | | 18 5:27 | | | | | | PM PDT | | | | +-------+ +---------+---+---+ +---+---+ | | | +---+---+ + +-------+ + +---+ + | insulin glargine (LANTUS | Given | 11/20/19 | 10 Units | | Arm-Righ | | SOLOSTAR) 100 units/mL injection | | 18 9:17 | | | t Upper | | (pen) 10 Units 10 Units (rounded | | PM PDT | | | | | from 10.37 Units = 0.1 | | | | | | | Units/kg/day | | | | | | | 103.7 kg), Subcutaneous, | | | | | | | NIGHTLY, First dose on 11/19/17 | | | | | | | at 2100, For subcutaneous use | | | | | | | only. Basal (long acting) | | | | | | | insulin., | | | | | | + +-------+ + +---+ + +---+---+ | | | +---+---+ + +-------+ + +---+ + | insulin glargine (LANTUS | Given | 11/22/19 | 23 Units | | Abdomen- | | SOLOSTAR) 100 units/mL injection | | 18 9:25 | | | LLQ | | (pen) 23 Units 23 Units, | | PM PDT | | | | | Subcutaneous, NIGHTLY, First dose | | | | | | | (after last modification) on Sun | | | | | | | 11/20/17 at 2100, For subcutaneous | | | | | | | use only. Basal (long acting) | | | | | | | insulin., | | | | | | + +-------+ + +---+ + +-------+ + +---+ + | Given | 11/21/19 | 23 Units | | Arm-Left | | | 18 8:19 | | | Upper | | | PM PDT | | | | +-------+ + +---+ + +---+---+ | | | +---+---+ + +-------+ + +---+ + | insulin glargine (LANTUS | Given | 11/23/19 | 30 Units | | Abdomen- | | SOLOSTAR) 100 units/mL injection | | 18 9:20 | | | LLQ | | (pen) 30 Units 30 Units, | | PM PDT | | | | | Subcutaneous, NIGHTLY, First dose | | | | | | | (after last modification) on Tue | | | | | | | 11/22/17 at 2100, For subcutaneous | | | | | | | use only. Basal (long acting) | | | | | | | insulin., | | | | | | + +-------+ + +---+ + +---+---+ | | | +---+---+ + +-------+ + +---+ + | insulin glargine (LANTUS | Given | 11/26/19 | 30 Units | | Abdomen- | | SOLOSTAR) 100 units/mL injection | | 18 9:09 | | | LUQ | | (pen) 30 Units 30 Units, | | AM PDT | | | | | Subcutaneous, EVERY 12 HOURS (2 | | | | | | | times per day), First dose (after | | | | | | | last modification) on [facility] 11/24/17 | | | | | | | at 1345, For subcutaneous use | | | | | | | only. Basal (long acting) | | | | | | | insulin., | | | | | | + +-------+ + +---+ + +-------+ + +---+ + | Given | 11/25/19 | 30 Units | | Abdomen- | | | 18 9:22 | | | LUQ | | | PM PDT | | | | +-------+ + +---+ + | Given | 11/25/19 | 30 Units | | Abdomen- | | | 18 2:09 | | | RUQ | | | PM PDT | | | | +-------+ + +---+ + +---+---+ | | | +---+---+ + +-------+ + +---+ + | insulin glargine (LANTUS | Given | 11/24/19 | 40 Units | | Abdomen- | | SOLOSTAR) 100 units/mL injection | | 18 8:01 | | | LLQ | | (pen) 40 Units 40 Units, | | PM PDT | | | | | Subcutaneous, NIGHTLY, First dose | | | | | | | (after last modification) on Tue | | | | | | | 11/23/17 at 2100, For subcutaneous | | | | | | | use only. Basal (long acting) | | | | | | | insulin., | | | | | | + +-------+ + +---+ + +---+---+ | | | +---+---+ + +-------+ + +---+ + | insulin lispro (humaLOG | Given | 11/23/19 | 10 Units | | Arm-Left | | KWIKPEN) 100 units/mL injection | | 18 5:21 | | | Upper | | (pen) 0-12 Units 0-12 Units, | | PM PDT | | | | | Subcutaneous, 4 TIMES DAILY WITH | | | | | | | MEALS & NIGHTLY, First dose on | | | | | | | 11/19/17 at 1745, CORRECTION | | | | | | | SCALE: Blood Glucose (BG) < | | | | | | | 150: None BG | | | | | | | 150-200: DAY: 2 units. NIGHT: | | | | | | | 0 units BG 201-250: DAY: 4 | | | | | | | units. NIGHT: 2 units BG | | [...] | | | | | | | [id number] Use NIGHT DOSE for | | | | | | | doses scheduled: HS, 3AM, | | | | | | | Nighttime [id number], | | | | | | + +-------+ + +---+ + +-------+ + +---+ + | Given | 11/23/19 | 10 Units | | Arm-Left | | | 18 12:11 | | | Upper | | | PM PDT | | | | +-------+ + +---+ + | Given | 11/23/19 | 6 Units | | Arm-Left | | | 18 8:59 | | | Upper | | | AM PDT | | | | +-------+ + +---+ + + +---+ | | | + +---+ | insulin lispro (humaLOG | | | KWWYATTPEN) 100 units/mL injection | | | (pen) 0-12 Units 0-12 Units, | | | Subcutaneous, 4 TIMES DAILY WITH | | | MEALS & NIGHTLY, First dose on | | | Tue11/25/17 at 1315, CORRECTION | | | SCALE: Blood Glucose (BG) < | | | 150: None BG | | | 150-200: DAY: 2 units. NIGHT: | | | 0 units BG 201-250: DAY: 4 | | | units. NIGHT: 2 units BG | | | 251-300: DAY: 6 units. NIGHT: | | | 4 units BG 301-350: DAY: 8 | | | units. NIGHT: 6 units BG | | | 351-400: DAY: 10 units. NIGHT: 8 | | | units BG > 400 : DAY: 12 | | | units. NIGHT: 10 units | | | AND CALL PROVIDER | | | , Use DAY DOSE for doses | | | scheduled: AC, NPO, Daytime | | | [id number] Use NIGHT DOSE for | | | doses scheduled: HS, 3AM, | | | Nighttime [id number], | | + +---+ | | | + +---+ + +-------+ +---------+---+ + | insulin lispro (humaLOG | Given | 11/26/19 | 3 Units | | Abdomen- | | KWIKPEN) 100 units/mL injection | | 18 12:21 | | | LLQ | | (pen) 0-18 Units 0-18 Units, | | PM PDT | | | | | Subcutaneous, 4 TIMES DAILY WITH | | | | | | | MEALS & NIGHTLY, First dose on | | | | | | | 11/22/17 at 2100, CORRECTION | | | | | | | SCALE: Blood Glucose (BG) < | | | | | | | 150: None BG | | | | | | | 150-200: DAY: 3 units. NIGHT: | | | | | | | 0 units BG 201-250: DAY: 6 | | | | | | | units. NIGHT: 3 units BG | | | | | | | 251-300: DAY: 9 units. NIGHT: | | | | | | | 6 units BG 301-350: DAY: 12 | | | | | | | units. NIGHT: 9 units BG | | | | | | | 351-400: DAY: 15 units. NIGHT: | | | | | | | 12 units BG > 400 : DAY: 18 | | | | | | | units. NIGHT: 15 units | | | | | | | AND CALL PROVIDER | | | | | | | Use DAY DOSE for doses | | | | | | | scheduled: AC, NPO, Daytime | | | | | | | [phone] Use NIGHT DOSE for | | | | | | | doses scheduled: HS, 3AM, | | | | | | | Nighttime [id number], | | | | | | + +-------+ +---------+---+ + +-------+ +---------+---+ + | Given | 11/26/19 | 6 Units | | Abdomen- | | | 18 9:09 | | | LUQ | | | AM PDT | | | | +-------+ +---------+---+ + | Given | 11/25/19 | 3 Units | | Abdomen- | | | 18 9:22 | | | RLQ | | | PM PDT | | | | +-------+ +---------+---+ + +---+---+ | | | +---+---+ + +-------+ +---------+---+ + | insulin lispro (humaLOG | Given | 11/25/19 | 6 Units | | Abdomen- | | KWIKPEN) 100 units/mL injection | | 18 2:03 | | | LLQ | | (pen) 6 Units 6 Units, | | AM PDT | | | | | Subcutaneous, ONCE, [facility] 11/24/17 at | | | | | | | 0215, For 1 dose | | | | | | + +-------+ +---------+---+ + +---+---+ | | | +---+---+ + +-------+ +---------+---+ + | insulin lispro (humaLOG | Given | 11/26/19 | 8 Units | | Abdomen- | | KWIKPEN) 100 units/mL injection | | 18 12:20 | | | LLQ | | (pen) 8 Units 8 Units, | | PM PDT | | | | | Subcutaneous, 3 TIMES DAILY WITH | | | | | | | MEALS, First dose on [facility] 11/24/17 | | | | | | | at 0800 | | | | | | + +-------+ +---------+---+ + +-------+ +---------+---+ + | Given | 11/26/19 | 8 Units | | Abdomen- | | | 18 9:04 | | | LUQ | | | AM PDT | | | | +-------+ +---------+---+ + | Given | 11/25/19 | 8 Units | | Abdomen- | | | 18 5:56 | | | LLQ | | | PM PDT | | | | +-------+ +---------+---+ + + +---+ | | | + +---+ | labetalol (TRANDATE) 5 mg/mL | | | injection 20-40 mg 20-40 mg, | | | Intravenous, EVERY 4 HOURS PRN, | | | SBP>175 or DBP>100, Starting Wed | | | 11/23/17 at 1831 | | + +---+ | | | + +---+ + +---------+ +-----+ +---+ | magnesium sulfate 2 g/50 mL | New Bag | 11/22/19 | 2 g | 25 mL/hr | | | IVPB 2 g 2 g, Intravenous, | | 18 1:09 | | | | | Administer over 120 Minutes, | | PM PDT | | | | | ONCE, 11/21/17 at 1145, For 1 | | | | | | | dose, Infuse over 2 hours., | | | | | | + +---------+ +-----+ +---+ + +---+ | | | + +---+ | ondansetron (ZOFRAN ODT) | | | disintegrating tablet 4 mg 4 mg, | | | Oral, EVERY 6 HOURS PRN, Nausea, | | | Vomiting, Starting 11/21/17 at | | | 1245, First line agent, | | | Post-op/Phase II | | + +---+ | | | + +---+ + +-------+ +-------+---+---+ | pantoprazole (PROTONIX) DR | Given | 11/26/19 | 40 mg | | | | tablet 40 mg 40 mg, Oral, DAILY | | 18 6:56 | | | | | BEFORE BREAKFAST, First dose on | | AM PDT | | | | | 11/19/17 at 1745, Do not cut or | | | | | | | crush., Indication: GERD | | | | | | + +-------+ +-------+---+---+ +-------+ +-------+---+---+ | Given | 11/25/19 | 40 mg | | | | | 18 6:37 | | | | | | AM PDT | | | | +-------+ +-------+---+---+ | Given | 11/24/19 | 40 mg | | | | | 18 6:44 | | | | | | AM PDT | | | | +-------+ +-------+---+---+ +---+---+ | | | +---+---+ + +-------+ +---+---+---+ | phenylephrine-mineral | Given | 11/22/19 | | | | | oil-petrolatum (PREPARATION H) | | 18 11:36 | | | | | rectal ointment Rectal, 4 TIMES | | AM PDT | | | | | DAILY PRN, Hemorrhoidal Pain, | | | | | | | Starting 11/21/17 at 0930 | | | | | | + +-------+ +---+---+---+ +---+---+ | | | +---+---+ + +---------+ +---------+ +---+ | piperacillin-tazobactam (ZOSYN) | New Bag | 11/22/19 | 3.375 g | 25 mL/hr | | | 3.375 g in sodium chloride 0.9% | | 18 1:09 | | | | | 100 mL IVPB 3.375 g, | | PM PDT | | | | | Intravenous, Administer over 4 | | | | | | | Hours, EVERY 8 HOURS INTERVAL, | | | | | | | First dose on 11/19/17 at 2030, | | | | | | | Activate system and mix before | | | | | | | use., Indications: HCAP alanis | | | | | | | wound | | | | | | + +---------+ +---------+ +---+ +---------+ +---------+ +---+ | New Bag | 11/22/19 | 3.375 g | 25 mL/hr | | | | 18 4:33 | | | | | | AM PDT | | | | +---------+ +---------+ +---+ | New Bag | 11/21/19 | 3.375 g | 25 mL/hr | | | | 18 7:46 | | | | | | PM PDT | | | | +---------+ +---------+ +---+ +---+---+ | | | +---+---+ + +---------+ +-------+-------+---+ | piperacillin-tazobactam (ZOSYN) | New Bag | 11/20/19 | 4.5 g | 200 | | | 4.5 g in sodium chloride 0.9% | | 18 4:01 | | mL/hr | | | 100 mL IVPB 4.5 g, Intravenous, | | PM PDT | | | | | Administer over 30 Minutes, ONCE, | | | | | | | 11/19/17 at 1540, For 1 dose, | | | | | | | Activate system and mix before | | | | | | | use., Indications: Pneumonia | | | | | | + +---------+ +-------+-------+---+ +---+---+ | | | +---+---+ + +-------+ +---------+---+---+ | senna (SENOKOT) tablet 17.2 mg | Given | 11/26/19 | 17.2 mg | | | | 17.2 mg, Oral, EVERY MORNING, | | 18 8:58 | | | | | First dose on 11/19/17 at 1610, | | AM PDT | | | | | Hold for BM, | | | | | | + +-------+ +---------+---+---+ +-------+ +---------+---+---+ | Given | 11/25/19 | 17.2 mg | | | | | 18 8:44 | | | | | | AM PDT | | | | +-------+ +---------+---+---+ | Given | 11/24/19 | 17.2 mg | | | | | 18 8:09 | | | | | | AM PDT | | | | +-------+ +---------+---+---+ +---+---+ | | | +---+---+ + + + +--------+-------+---+ | sodium chloride 0.9% (NS) bolus | Continue | 11/20/19 | 1,000 | 2000 | | | 1,000 mL 1,000 mL, Intravenous, | bag | 18 1:51 | mLs | mL/hr | | | Administer over 30 Minutes, | from | PM PDT | | | | | ONCE, 11/19/17 at 1355, For 1 | transfer | | | | | | dose | | | | | | + + + +--------+-------+---+ +---+---+ | | | +---+---+ + +-------+ +---+---+---+ | trolamine salicylate | Given | 11/26/19 | | | | | (ASPERCREME) 10% cream Topical, | | 18 12:22 | | | | | 4 TIMES DAILY PRN, Pain, Starting | | PM PDT | | | | | 11/23/17 at 1419 | | | | | | + +-------+ +---+---+---+ +-------+ +---+---+---+ | Given | 11/25/19 | | | | | | 18 12:21 | | | | | | PM PDT | | | | +-------+ +---+---+---+ +---+---+ | | | +---+---+ + +---------+ + +-------+---+ | vancomycin 1,250 mg in sodium | New Bag | 11/22/19 | 1,250 mg | 175 | | | chloride 0.9% 250 mL IVPB 1,250 | | 18 5:26 | | mL/hr | | | mg (rounded from 1,279.5 mg = 15 | | AM PDT | | | | | mg/kg | | | | | | | 85.3 kg Adjusted weight), | | | | | | | Intravenous, Administer over 90 | | | | | | | Minutes, EVERY 12 HOURS INTERVAL, | | | | | | | First dose on 11/20/17 at | | | | | | | 0500, Keep in refrigerator., | | | | | | | Indications: Pneumonia | | | | | | + +---------+ + +-------+---+ +---------+ + +-------+---+ | New Bag | 11/21/19 | 1,250 mg | 175 | | | | 18 5:25 | | mL/hr | | | | PM PDT | | | | +---------+ + +-------+---+ | New Bag | 11/21/19 | 1,250 mg | 175 | | | | 18 5:46 | | mL/hr | | | | AM PDT | | | | +---------+ + +-------+---+ +---+---+ | | | +---+---+ + +---------+ + +--------+---+ | vancomycin 1,500 mg in sodium | New Bag | 11/23/19 | 1,500 mg | 176.7 | | | chloride 0.9% 250 mL IVPB 1,500 | | 18 4:46 | | mL/hr | | | mg, Intravenous, Administer over | | AM PDT | | | | | 90 Minutes, EVERY 12 HOURS | | | | | | | INTERVAL, First dose (after last | | | | | | | reorder) on Tue11/21/17 at 1700, | | | | | | | Keep in refrigerator., | | | | | | | Indications: Pneumonia | | | | | | + +---------+ + +--------+---+ +---------+ + +--------+---+ | New Bag | 11/22/19 | 1,500 mg | 176.7 | | | | 18 5:18 | | mL/hr | | | | PM PDT | | | | +---------+ + +--------+---+ +---+---+ | | | +---+---+ + +---------+ + +--------+---+ | vancomycin 1,750 mg in sodium | New Bag | 11/20/19 | 1,750 mg | 258.8 | | | chloride 0.9% 500 mL IVPB ,750 | | 18 4:44 | | mL/hr | | | mg (rounded from 1,706 mg = 20 | | PM PDT | | | | | mg/kg | | | | | | | 85.3 kg Adjusted weight), | | | | | | | Intravenous, Administer over 120 | | | | | | | Minutes, ONCE, 11/19/17 at | | | | | | | 1700, For 1 dose, Keep in | | | | | | | refrigerator., Indications: | | | | | | | Pneumonia | | | | | | + +---------+ + +--------+---+ +---+---+ | | | +---+---+ documented in this encounter
--- OUTSIDE RECORDS SUMMARY | ~2019-03-28 | XMS | Encounter Summary ---
Demographics + + + | Address | [address] | | | [place] [address] | + + + | Home Phone [...] | Organization | [facility] | | | and [place] | + + + | Address | Unknown | + + + | Phone | Unavailable | + + + Support + + + + + | Name | Relationship | Address | Phone | + + + + + | Jessica Shepard | ECON | [address] | | | | | [place] | | | | | [phone] | | + + + + + | Bel Solis | ECON | Unknown | | + + + + + | José Shepard | ECON | [place] | | | | | [phone] | | + + + + + | Jessica Shepard | ECON | Unknown | | + + + + + Care Team Providers + +------+ + | Care Air Sampler Name | Role | Phone | + +------+ + | Dian Lr NP | PCP | | + +------+ + Encounter Details +--------+ + + + + | Date | Type | Department | Care Team | Description | +--------+ + + + + | 05/14/ | Hospital | [facility] | Marlin Mckeon | Received intravenous | | 2017 - | Encounter | [facility] | MD [place] [address] | tissue plasminogen | | | | CARE FLOOR [address] [place] | activator (tPA) in | | 05/19/ | | [place] | [id number] | emergency | | 2017 | | [facility] | | department; Acute | | | | [address] | | left hemiparesis | | | | [phone] | | ([facility] Date of Service: 05/19/16 105 Status: Signed Coating Technician: Jeff Corley DO (Physician) [facility] Service: Hospitalist Discharge Summary Date of Admission: [...] edema Skin - dry no erythema Disposition: USP Condition: Stable Code Status: Full Code Discharge [...] Tolerated Follow up: Saurabh Fritz, DO [address] [facility] [address] [place] [address] Medication List START taking these medications atorvastatin [...] Date of Service: 05/19/16 1231 Status: Signed Coating Technician: Sandra Cedillo RN (Registered Nurse) Report given to ELLIOT M[facility]quez at [facility]. Pt aware of transfer plan. Facility van to pick pt up at 1300. onver elder Transaction, Provider Unknown - 05/19/2016 11:41 AM PST Case Management by Lisa Hogan RN at 05/19/16 1141 Author: Lisa Hogan RN Service: (none) Author Type: Registered Nurse Filed: 05/19/16 1142 Date of Service: 05/19/16 1141 Status: Signed Coating Technician: Lisa Hogan RN (Registered Nurse) 05/19/16 1128 Anticipated Disposition Facility Type detention facility Discharge Appointment Time 1300 Medicare Important Message (ROS) Given Fdc Facility Other (comment) ([facility]) Disposition: [facility] Transportation: W/C van provided by facility All orders, signed AVS, and prescriptions have been faxed All DC paperwork completed Patient and family in agreement with discharge plan Medicare important message (Given or N/A): yes Tc to spouse Jessica who agrees with d/c plan to [facility]. Negar onver elder Transaction, Provider Unknown - 05/19/2016 11:40 AM PST Therapy Progress Note by Theresa Gonzales PT at 05/19/16 1140 Author: Theresa Gonzales PT Service: (none) Author Type: Physical Therapist Filed: 05/19/16 1140 Date of Service: 05/19/16 1140 Status: Signed Coating Technician: Theresa Gonzales PT (Physical Therapist) 05/19/16 1139 [...] Author: HARIS Lemon Service: (none) Author Type: Retail Selling Floor Leader Filed: 05/19/16 1114 Date of Service: 05/19/16 1102 Status: Signed Coating Technician: HARIS Lemon (Retail Selling Floor Leader) 05/19/16 1100 Discharge Planning Evaluation Admitting Diagnosis CVA, TPA given Anticipated Disposition Facility Type detention facility Fdc Facility Other (comment) ([facility]) STRAP BUCKLER MACHINE p/c Cheryl Bashir [facility] Coordinator, states she received phone call from [facility], asking for authorization. STRAP BUCKLER MACHINE assisted Pt and Pt (Jessica Shepard [phone]) regarding VA GEC form, assisted with form and faxed to [facility] Coordinator - Cheryl Bashir [phone] ext. [phone]. During filli ng out GEC form, Pt stated "We wanted [facility] Reed over [facility], but we were told [facility] was denied by [place]." STRAP BUCKLER MACHINE provided choice of accepting facili ties. STRAP BUCKLER MACHINE p/c Carlos with [facility] states they will accept Pt, they are VA contracted, if Pt choice. STRAP BUCKLER MACHINE met with Negar ZARATE regarding the discrepancy of information about Pt choice. STRAP BUCKLER MACHINE with Negar ZARATE met with Pt and Pt (Jessica Shepard) regarding choice, after lengthy discussion, they went back and forth regarding facilities, Pt finally chose [facility]. DCP: [facility] NAOMY GALAN, Retail Selling Floor Leader [phone] cell onver elder Transaction, Provider Unknown - 05/19/2016 8:06 AM PST Case Management by Lisa Hogan RN at 05/19/16 0806 Author: Lisa Hogan RN Service: (none) Author Type: Registered Nurse Filed: 05/19/162 Date of Service: 05/19/16805 Status: Addendum Coating Technician: Lisa Hogan RN (Registered Nurse) Related Notes: Original Note by Lisa Hogan RN (Registered Nurse) filed at 05/19/16 082 1 0800:Tc to Carlos at [facility]/[id number] re VA benefits and acceptance. Tc to Jessica, she states she rather have pt go to [facility] and not [facility]. Went to meet with pt and he spoke to Jessica over the phone and agrees with going to [facility]. Tc to Jimmy at [facility], left [facility] re acceptance. 1030: per Jimmy, they can transport pt today at 1300 via w/c van. Jimmy states they are VA contracted and pt does not have to move to another [place] facility after the 20 days of medicar e have . Pt can be transitioned to VA on the if the [facility] paperwork is submitt ed now to the VA. Notified pt and spouse Jessica as this was their concern. STRAP BUCKLER MACHINE Naomy was given referral to assist in completing the GE process. Faxed PT/MD notes to [facility] coordinator per her request. Notified primary RN and Dr Corley about d/c. Negar onver elder Transaction, Provider Unknown - 05/19/2016 5:25 AM PST Nurse Progress Note by Hero You RN at 05/19/16524 Author: Hero You RN Service: (none) Author Type: Registered Nurse Filed: 05/19/16524 Date of Service: 05/19/16524 Status: Signed Coating Technician: Hero You RN (Registered Nurse) No acute changes from previous end of shift report. Will continue monitoring. Hero You RN 05/19/2016 onver elder Transaction, Provider Unknown - 05/18/2016 6:32 PM PST Nurse Progress Note by Sandra Cedillo RN at 05/18/161831 Author: Sandra Cedillo RN Service: (none) Author Type: Registered Nurse Filed: 05/18/161833 Date of Service: 05/18/161831 Status: Signed Coating Technician: Sandra Cedillo RN (Registered Nurse) Pt had [...] Service: Hospitalist Author Type: Physician Filed: 05/18/16 1254 Date of Service: 05/18/16 1252 Status: Signed Coating Technician: Jeff Corley DO (Physician) PROGRESS NOTE 05/18/2016 [...] (tPA) in emergency department Acute left hemiparesis ([facility]) Type 2 diabetes mellitus with hyperglycemia, with long-term current use of insulin ([facility]) Type 2 diabetes mellitus with diabetic neuropathy, with long-term current use of insulin ([facility]) Moderate protein-calorie malnutrition (HCC) GERD (gastroesophageal reflux disease) Hypokalemia Essential hypertension, benign Length of stay: 4 days DVT prophylaxis: enox Code status: full code Disposition: inpatient SUBJECTIVE Patient seen/examined with rounding team, lying in bed, had an extended conversation with c ase harvesting manager about which SNF's/towns he liked and [...] Date of Service: 05/18/16 1150 Status: Signed Coating Technician: Jenn Richey RD (Registered Dietitian) 05/18/16 1057 [...] Physical Findings Digestive System (Mouth to Rectum) LEAD NUCLEAR MEDICINE TECHNOLOGIST following for dysphagia Anthropometrics Weight change Wt [...] Date of Service: 05/18/16 1131 Status: Addendum Coating Technician: Lisa Hogan RN (Registered Nurse) Related Notes: Original Note by Lisa Hogan RN (Registered Nurse) filed at 05/18/16 154 2 1000: Tc from Shara([phone] ext [phone]) with VA "Gec" program regardign snf placemen t. Per Ly, pt needs to go to a VA contracted snf if he wants the VA to provide for copay after his medicare coverage no longer pays 100%. Ly statesthese are some available VA c ontracted snfs: [facility], [facility], [facility], [facility]. [facility] nd [place] are not contracted with them. Per Ly, if paperwork(PT/MD notes and GEC form ) is submitted now, they can admit pt to a VA contracted snf under VA benefits. Informed Salo wang will discuss with pt and spouse Jessica. Per email from Sheila with I[facility], pt declined for IPR. 1130:Tc to Jinny/Char[facility], she states pt power and recovery shift engineer nurse's note, pt has been restless an d manager convention light continously and on IV fentanyl, she is not sure she has the man power to acc ept pt. 1200: Tc to spouse Jessica, , [facility] regarding snf placement. Met with pt regarding snf and VA benefits. Pt states he will discuss with spouse, but would consider going to [facility]. Sent e-referrals. Pt states Jessica will be here this evening and would like to discuss with CM options. Informed pt [facility]) has accepted pt but they are not VA contracted. 1300: per rounding with pt, he wants referral sent to [facility] too. Referral sent. Referral sent to HARIS Nichols to assist with "GEC" paperwork for the VA 1500: Tc to Carlos with [facility]([phone]), he thinks pt can be accepted when medically roseann dy, but first have to review pt's VA benefits to make sure rehab is covered. Tc to Jessica again,([phone]) left [facility] about rehab placement. Attempted to call Shonda reilly at work,[phone], busy signal. 1530: per Jimmy at [facility], they can accept pt when he is medically ready and if he wants to go there. Notified pt Dunia friedman Transaction, Provider Unknown - 05/18/2016 10:37 AM PST Progress Notes by Khadra Osman RD, DANNY at 05/18/16 1037 Author: Khadra Osman RD, CDE Service: (none) Author Type: Talent Buyer Filed: 05/18/16 1044 Date of Service: 05/18/16 1037 Status: Signed Coating Technician: Khadra Osman RD, CDE (Talent Buyer) Met with pt. Reports he's had diabetes for 6 years. He gets all medications through the [facility] for his diabetes. States his of 49 years also has insulin dependent diabetes. At [facility] he was prescribed: 50 units of [...] his blood sugar. Reports he's been through [employer] es education classes two times - but [...] the VA. Khadra Osman RD, MPH, CDE, Talent Buyer 05/18/2016 10:43 AM onver elder Transaction, Provider Unknown - 05/18/2016 4:36 AM PST Nurse Progress Note by Hero You RN at 05/18/16435 Author: Hero You RN Service: (none) Author Type: Registered Nurse Filed: 05/18/167 Date of Service: 05/18/16435 Status: Signed Coating Technician: Hero You RN (Registered Nurse) Pts VSS, [...] 05/17/161701 Date of Service: 05/17/161699 Status: Signed Coating Technician: Sandra Cedillo RN (Registered Nurse) Pt anxious [...] Date of Service: 05/17/16 1500 Status: Signed Coating Technician: Cheryl Rodney PT (Physical Therapist) 05/17/16 1500 PT Last Visit PT Received On 05/17/16 Reason for Treatment Stroke Requires PT Follow Up Yes Follow up PT Only? Yes (complexity) Assistance Required 2 person Special Warfare Combatant Crewman Needed No Precautions UE Precaution(s) LUE Precautions/WB [...] lift for transfer back to bed - RN/STEERSMAN aware of pt positioning/abilities and need for [...] Barriers to Discharge Cognitive Deficits Impacting Functional Stearns;Self-care Defici ts Impacting Functional Stearns;Physical Deficits Impacting Functional Stearns;Malik rological Impairment (see comment) Recommendation Comments Pt [...] Notes by Jeff Corley DO at 05/17/16 6398 Author: Jeff Corley DO Service: Hospitalist Author Type: Physician Filed: 05/17/16 1600 Date of Service: 05/17/16 1238 Status: Addendum Coating Technician: Jeff Corley DO (Physician) Related Notes: Original Note by Jeff Corley DO (Physician) filed at 05/17/16 7381 PROGRESS NOTE 05/17/2016 for Reagan Shepard on the hospitalist service. ASSESSMENT & PLAN Acute CVA S/p tPA, monitored in ICU, neuro stable. Continue aspirin, statin. BP has been in normal range, not an antihypertensives here or at home. Therapies working with patient, hope to transfer to [facility] pending insurance authorization (me mccann). May need [...] neuropathy, with long-term current use of insulin ([facility]) Moderate protein-calorie malnutrition (HCC) GERD (gastroesophageal [...] Date of Service: 05/17/16 1144 Status: Addendum Coating Technician: Lisa Hogan RN (Registered Nurse) Related Notes: Original Note by Lisa Hogan RN (Registered Nurse) filed at 05/17/16 130 3 Per rounding with pt, he is A&O x4. Pending IPR. Sent email to Sheila at [facility] for status. Left VM for PT regarding f/u with pt 1230:Tc to spouse Jessica regarding snf placement in case [facility] declines pt. Jessica upset as s he thought "doctor" had told her son yesterday that pt was a good candidate for IPR and was accepted to [facility]. Informed Jessica Alicia has not made decision yet as he is "following pt". Jessica wants referrals sent to [facility]. Jessica asks that we dont mention to pt snf placement yet until a decision i s made about IPR. Negar onver elder Transaction, Provider Unknown - 05/17/2016 10:05 AM PST Therapy Progress Note by TOLU Xiao/Parminder at 05/17/16 1005 Author: GABE Xiao Service: (none) Author Type: Occupational Therapist Filed: 05/17/16 1240 Date of Service: 05/17/16 1005 Status: Signed Coating Technician: GABE Xiao (Occupational Therapist) 05/17/16 1005 OT Last Visit OT Received On 05/17/16 Reason for Treatment Stroke Requires OT Follow Up Awaiting tx order OT Eval/Reassessment Date 05/17/16 Assistance Required 2 person Special Warfare Combatant Crewman Needed No Family/Caregiver Present No Precautions Other Precautions high fall risk, L hemiparesis Other Comments Comments OT eval orders received/verified. Pt willing to participate in OT this AM. Chart r ramon-relevant to OT evaluation: Left sided weakness, s/p IV rtPA with little improvement, due to right bogdan infarction, most likely [id number] in etiology related to uncontrol led DM; [...] Days Recommendation Recommendation Rehab consult Equipment Recommended Rigger Chief;Bedside commode;Elastic shoe laces;HHSH OT Ready for Discharge [...] note for PLOF Prior Function Level of Stearns Independent with functional mobility;Independent with ADLs;Independe nt [...] equipment (bed level) LE Dressing Adaptive Equipment Rigger Chief;Dressing stick Arm Goals Pt Will Tolerate SROM [...] order Recommendation Recommendation Rehab consult Equipment Recommended Rigger Chief;Bedside commode;Elastic shoe laces;HHSH OT Ready for Discharge [...] stroke, neurological resource center guide Moderate - 64364 High - 16624 History Expanded review of medical records; additional review of physical, cognitive, or ps ychosocial skills Examination Identification of 5 or more performance deficits Decision Making Presents with comorbidities; significant modification of tasks or assistan ce is needed to complete eval Clinical Decision Making Complexity: Moderate 58303 onver elder Harris Provider Unknown - 05/17/2016 5:44 AM PST Nurse Progress Note by Hero You RN at 05/17/1644 Author: Hero You RN Service: (none) Author Type: Registered Nurse Filed: 05/17/16 0550 Date of Service: 05/17/16543 Status: Signed Coating Technician: Hero You RN (Registered Nurse) Pts VSS, [...] 05/16/161652 Date of Service: 05/16/161651 Status: Addendum Coating Technician: Teena Matthew RN (Registered Nurse) Related Notes: [...] 1514 Date of Service: 05/16/161511 Status: Signed Coating Technician: Wing Nina Alicia MD (Physician) Patient seen [...] Calculation (Bezet) 05/14/2016 455 Final Calculated P [place] 05/14/2016 28 Final Calculated R [place] 05/14/2016 -3 Final Calculated T [place] 05/14/2016 38 Final Diagnosis 05/14/2016 Final Value:Normal [...] De La Garza Service: (none) Author Type: Vocal Artist Filed: 05/16/16 1213 Date of Service: 05/16/16 1205 Status: Signed Coating Technician: HARIS De La Garza (Vocal Artist) 05/16/16 1201 Discharge Planning Evaluation Admitting Diagnosis [...] Yes Name of Pharmacy [facility] [place] [place] [facility] [place] Previous home health equipment Yes;Comment (Pt uses a cane at baseline) Vascular access device No Ostomy/Drains/Appliances (TBD) Anticipated Disposition Facility Type Other (Comment) Met with patient Reagan Shepard and discussed discharge planning. 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 The patient resides with his in [facility]. The patient was alert and oriented. He [...] disease, and TBI who initially presented to [facility] with left facial droop and left-sided weakness. He had an episode of urinary incontinence and fall, EMS called and patient was brought to [facility] ED. " "Patient is also complaining of a 3-week history of intermittent left-sided weakness and fal ls. He uses a cane for ambulation." Patient's PCP is: Patient's insurance: [employer] & Medicare Coverage concerns: no Medication coverage/concerns: no Rx Bedside Delivery: Preferred Pharmacy: [facility] or [facility] [employer] [facility] resources utilized / needed: TBD Assistance in transportation: Spouse - Jessica Shepard [phone] or work [phone] Identification of any specific education / training: no Barriers to Discharge / Alternative housing needed: TBD Anticipated DCP: Home DWIGHT De La Garza John Hill MD - 05/16/2016 8:26 AM PST Progress Notes by John Murdock MD at 05/16/16825 Author: John Murdock MD Service: (none) Author Type: Physician Filed: 05/16/16 1131 Date of Service: 05/16/16825 Status: Addendum Coating Technician: John Murdock MD (Physician) Related Notes: Original Note by John Murdock MD (Physician) filed at 05/16/16 1108 [facility] Service: Hospitalist Progress Note Pt: Reagan Shepard AGE/SEX: 71 y.o. male : 1945 ROOM: [facility]/7124-1 REQUESTING PROVIDER: John Murodck MD TODAY'S DATE: 05/16/2016 Hospital Day: LOS: 2 days + past medical history of DM 2 with neuropathy, DDD and TBI Transfer from [facility] fter seen there with left facial droop and left-sided weakness.,episode of urinary incontin ence and fall, .Acute infarction in the right bogdan, CT head unremarkablMRI e, no ICH. As N IHSS score of 14 TPA Was liza marlowfer to [facility] [place] [facility] care SUBJECTIVE aprt from witness [...] hours. No results for input(s): PHART, PO2ART, GOL1IFB, L2MTBJVK, BEART in the last 168 hours. No [...] (tPA) in emergency department Acute left hemiparesis ([facility]) Type 2 diabetes mellitus with hyperglycemia, with long-term current use of insulin (HCC) Type 2 diabetes mellitus with diabetic neuropathy, with long-term current use of insulin (HCC) Moderate protein-calorie malnutrition (HCC) GERD (gastroesophageal reflux disease) Hypokalemia Essential hypertension, benign ASSESSMENT & PLAN Principal Problem: Ischemic stroke-Acute left hemiparesis ([facility]) Ischemic stroke s/p TPA (05/14) ASA [...] this point his current strok are pattern trolley worker ior circulation at this point asymtomatic carotid stenosiis Consider and need f/ up vascular at out patie nt once d/c Angelica Pearson M D - 05/16/2016 8:26 AM PST Progress Notes by Angelica Bernardo MD at 05/16/16825 Author: Angelica Bernardo MD Service: Neurology Author Type: Physician Filed: 05/16/16840 Date of Service: 05/16/16825 Status: Signed Coating Technician: Angelica Bernardo MD (Physician) Subjective: Patient seen [...] due to right bogdan infarction, most likely yytdjy-[id number]-xgzhnr in etiology related to uncontrolled DM. 2- [...] per patient and no documen tation), recommend remote computer terminal operator Holter (30 days). 8. General care including [...] 05/16/16514 Date of Service: 05/16/16512 Status: Signed Coating Technician: Hero You RN (Registered Nurse) Pt A&OX4, [...] 05/15/161938 Date of Service: 05/15/161930 Status: Addendum Coating Technician: Sandra Cedillo RN (Registered Nurse) Related Notes: [...] (none) Author Type: Physical Therapist Filed: 05/15/16 8384 Date of Service: 05/15/16 1242 Status: Signed Coating Technician: Douglas Coelho PT (Physical Therapist) 05/15/16 1242 PT Last Visit PT Received On 05/15/16 Reason for Treatment Stroke Requires PT Follow Up Awaiting tx order Follow up PT Only? Yes (complexity) PT Eval/Reassessment Date 05/15/16 Assistance Required 2 person Special Warfare Combatant Crewman Needed No Home Environment Type of Home Home two story Home Exterior Layout Entry steps none Home Interior Layout Flight one;Rail on L ascending;Lives on main level with bedroom/bathro om;Walker accessible Bathroom Shower/Tub Tub/shower unit Bathroom Toilet Standard Bathroom Equipment Hand-held shower head;Tub transfer bench Bathroom Accessibility Accessible via walker Home Equipment Walker 4 wheeled;Cane single point Prior Function Level of Stearns Independent with functional mobility;Independent with ADLs;Independe nt [...] Barriers to Discharge Cognitive Deficits Impacting Functional Stearns;Physical Deficit s Impacting Functional Stearns;Self-care Deficits Impacting Functional Stearns;Malik rological Impairment (see comment) Recommendation Comments pt. needs Max x 2 for transfers and mobility and should benefit fro m SNF to improve strength, endurance and functional mobility 05/15/16 1242 PT Last Visit PT Received On 05/15/16 Reason for Treatment Stroke Requires PT Follow Up Awaiting tx order Follow up PT Only? Yes (complexity) PT Eval/Reassessment Date 05/15/16 Assistance Required 2 person Special Warfare Combatant Crewman Needed No Precautions UE Precaution(s) LUE Precautions/WB [...] Barriers to Discharge Cognitive Deficits Impacting Functional Stearns;Physical Deficit s Impacting Functional Stearns;Self-care Deficits Impacting Functional Stearns;Malik rological Impairment (see comment) Recommendation Comments pt. needs Max x 2 for transfers and mobility and should benefit fro m SNF to improve strength, endurance and functional mobility Low - 53051 Moderate - 63889 High - 55030 History no personal factors &/or comorbidities 1-2 personal factors &/or comorbidities 3 o r more personal factors &/or comorbidities Examination 1-2 elements 3 elements 4 or more elements Clinical Presentation stable evolving unstable Clinical Decision Making Complexity: Low 08103 Moderate 76402 High 41154 Viviana Ferrer ARNP - 05/15/2016 9:41 AM PSTFormatting of this note might be different from stephanie brown original. Progress Notes by RUBEN Atkins at 05/15/16 1604 Author: RUBEN Atkins Service: Orthopedic Cast Specialist Author Type: Advanced Registered January rooney Practitioner Filed: 05/15/16 9553 Date of Service: 05/15/1673 Status: Signed Coating Technician: RUBEN Atkins (Advanced Registered Nurse Practitioner) [facility] Service: Orthopedic Cast Specialist Progress Note [facility] 71 [facility] [...] disease, and TBI who initially presented to [facility] with left facial droop and left-sided weakness. He had an episode of uri nary incontinence and fall, EMS called and patient was brought to [facility] ED. Patient was last seen normal [...] of 14. Follow up on arrival to [facility] 9. Dr. Tova marin Keep BP < 180/105 mmHg, brain MRI 24 hours post-TPA with no e/o hemorrhage. Keep normoth ermic, normoglycemic. PT/OT/LEAD NUCLEAR MEDICINE TECHNOLOGIST following. ? cardioembolic as cause for ischemic [...] On room air. GI/NUTRITION: Moderate protein-calorie malnutrition: Mont[place]-Ghent thick liquids per LEAD NUCLEAR MEDICINE TECHNOLOGIST recs. GERD: on protonix at home. Continue [...] Notes by Angelica Bernardo MD at 05/15/16 6531 Author: Angelica Bernardo MD Service: Neurology Author Type: Physician Filed: 05/15/16 4990 Date of Service: 05/15/16912 Status: Signed Coating Technician: Angelica Bernardo MD (Physician) Subjective: Patient seen [...] due to right bogdan infarction, most likely [id number] in etiology related to uncontrolled DM. 2- [...] per patient and no documen tation), recommend longterm Holter (30 days). 9. Consult PT, OT, [...] 05/14/161528 Date of Service: 05/14/161528 Status: Signed Coating Technician: Pretty Dhillon RD, CD (Registered Dietitian) 05/14/161516 [...] Fluid / Beverage Intake Oral Fluids Amount Montrose-Ghent thick liquids ad bryant. Ok for 1 [...] subcutaneous fat. Digestive System (Mouth to Rectum) LEAD NUCLEAR MEDICINE TECHNOLOGIST following for dysphagia. Skin Intact. Anthropometrics Weight [...] Estimated Energy Needs Total Energy Estimated Needs 6701-9584 kcal/day Method for Estimating Needs 25-30 kcal/kg admit wt (84.7 kg) Estimated Protein Needs Total Protein Estimated Needs 102-127 g protein/day Method for Estimating Needs 1.2-1.5 g protein/kg admit wt (84.7 kg) Recommendations Recommended energy needs Recommend adding diabetic diet restrictions to current LEAD NUCLEAR MEDICINE TECHNOLOGIST diet or nigel to help optimize glycemic [...] Therapy Progress Note by Kate Hale MA CCC-LEAD NUCLEAR MEDICINE TECHNOLOGIST at 05/14/16911 Author: Kate Hale MA CCC-LEAD NUCLEAR MEDICINE TECHNOLOGIST Service: (none) Author Type: Speech and Language Patholo gist Filed: 05/14/16 0945 Date of Service: 05/14/16911 Status: Signed Coating Technician: Kate Hale MA CCC-LEAD NUCLEAR MEDICINE TECHNOLOGIST (Speech and Language Pathologist) 05/14/16911 LEAD NUCLEAR MEDICINE TECHNOLOGIST Last Visit LEAD NUCLEAR MEDICINE TECHNOLOGIST Received On 05/14/16 Requires LEAD NUCLEAR MEDICINE TECHNOLOGIST Follow Up Yes Swallowing Assessment Eval Swallowing [...] 1/2 trials by cup, none by spoon) Mont[place]-Ghent Presentation Cup;Self Fed Oral WFL Pharyngeal Phase [...] Larynge al Elevation Recommendations Liquids Consistency Recommendations [place]-Ghent thick;Ice chips for oral comfort Diet Consistency [...] diet textures, no awareness until cued by LEAD NUCLEAR MEDICINE TECHNOLOGIST. At this time, recommen d puree diet [...] monitoring;Patient/Family education; Assessment for upgrade Dysphagia Goals Furnace Process Supervisor Goals Safe/efficient oral intake Pt will have safe/efficient oral intake Thin liquids;Mechanical soft diet;With min cues;Ne w/revised goal Short Term Goals Tolerate liquid consistency Pt will tolerate tolerate liquid consistency Mont[place]-G[place]t thick liquids;with 1:1 supervision;New /revised goal onver elder Transaction, Provider Unknown - 05/14/2016 9:12 AM PST Therapy Progress Note by Zenon Schaeffer PT at 05/14/16 0912 Author: Zenon Schaeffer PT Service: Physical Medicine and Rehab Author Type: Physical Therapist Filed: 05/14/16 1556 Date of Service: 05/14/16911 Status: Signed Coating Technician: Zenon Schaeffer PT (Physical Therapist) 05/14/16 09 PT Last Visit PT Received On 05/14/16 (Per notes received tPA around 2 a.m. Will hold PT to allow) Requires PT Follow Up On hold (24 hour therapeutic window s/p tPA) onver elder Jeoaction, Provider Unknown - 05/14/2016 5:57 AM PST [place] [id number] Author: Iggy Lee RPH Service: Pharmacy Author Type: Pharmacist Filed: 05/14/16556 Date of Service: 05/14/16556 Status: Signed Coating Technician: Iggy Lee RPH (Pharmacist) Pharmacy will renal [...] | | | Fingerstick | performed at [facility];[address] | | LAB | | | | [address];[place] | | | | | | [address] | | | | + + + [...] | | | Fingerstick | performed at [facility];[address] | | LAB | | | | [address];[place] | | | | | | [address] | | | | + + + [...] | | | Fingerstick | performed at [facility];[address] | | LAB | | | | [address];[place] | | | | | | [address] | | | | + + + [...] | | | Fingerstick | performed at [facility];[address] | | LAB | | | | [address];[place], [place] | | | | | | [address] | | | | + + + [...] | | | Fingerstick | performed at [facility];[address] | | LAB | | | | [address];[place] | | | | | | [address] | | | | + + + [...] | | | Fingerstick | performed at [facility];[address] | | LAB | | | | [address];[place], [place] | | | | | | [address] | | | | + + + [...] EXTERNAL | | | | performed at [facility], [address] | K/uL | LAB | | | | [address], | | | | | | [place] [address] | | | | + + + + + + | RED CELL | 4.96Comment: Testing | 4.20 - 5.70 | EXTERNAL | | | COUNT | performed at [facility], [address] | M/uL | LAB | | | | [address], | | | | | | [place] [address] | | | | + + + + + + | Hgb | 14.1Comment: Testing | 13.2 - 17.0 | EXTERNAL | | | | performed at [facility], [address] | g/dL | LAB | | | | [address], | | | | | | [place] [address] | | | | + + + + + + | Hematocrit, | 40.8Comment: Testing | 39.0 - 50.0 % | EXTERNAL | | | POC | performed at [facility], [address] | | LAB | | | | [address], | | | | | | [place] [address] | | | | + + + + + + | MCV | 82.3Comment: Testing | 80.0 - 100.0 fl | EXTERNAL | | | | performed at [facility], [address] | | LAB | | | | [address], | | | | | | [place] [address] | | | | + + + + + + | MCH | 28.5Comment: Testing | 27.0 - 34.0 pg | EXTERNAL | | | | performed at [facility], [address] | | LAB | | | | [address], | | | | | | [place] [address] | | | | + + + + + + | MCHC | 34.6Comment: Testing | 32.0 - 35.5 | EXTERNAL | | | | performed at [facility], [address] | g/dL | LAB | | | | [address], | | | | | | [place] [address] | | | | + + + + + + | RDW-CV | 42.0Comment: Testing | 37 - 53 fl | EXTERNAL | | | | performed at [facility], [address] | | LAB | | | | [address], | | | | | | [place] [address] | | | | + + + + + + | Platelet | 219Comment: Testing | 150 - 400 K/uL | EXTERNAL | | | Count | performed at [facility], [address] | | LAB | | | Plasma | [address], | | | | | | [place] [address] | | | | + + + + + + | MPV | 8.6Comment: Testing | fl | EXTERNAL | | | | performed at [facility], [address] | | LAB | | | | [address], | | | | | | [place] [address] | | | | + + + + + + | Differentia | AUTOMATEDComment: | | EXTERNAL | | | l Type | Testing performed at | | LAB | | | | [facility], [address] | | | | | | [place] | | | | | | [address] | | | | + + + + + + | % Segmented | 65.52Comment: Testing | % | EXTERNAL | | | | performed at [facility], [address] | | LAB | | | Neutrophils | [address], | | | | | | [place] [address] | | | | + + + + + + | % | 22.13Comment: Testing | % | EXTERNAL | | | Lymphocytes | performed at [facility], [address] | | LAB | | | | [address], | | | | | | [place] [address] | | | | + + + + + + | % Monocytes | 9.16Comment: Testing | % | EXTERNAL | | | | performed at [facility], [address] | | LAB | | | | [address], | | | | | | [place] [address] | | | | + + + + + + | % | 2.44Comment: Testing | % | EXTERNAL | | | Eosinophils | performed at [facility], [address] | | LAB | | | | [address], | | | | | | [place] [address] | | | | + + + + + + | % Basophils | 0.75Comment: Testing | % | EXTERNAL | | | | performed at [facility], [address] | | LAB | | | | [address], | | | | | | [place] [address] | | | | + + + + + + | Absolute | 6.91Comment: Testing | 1.90 - 7.40 | EXTERNAL | | | Segmented | performed at [facility], [address] | K/uL | LAB | | | Neutrophils | [address], | | | | | | [place] [address] | | | | + + + + + + | Absolute | 2.33Comment: Testing | 1.00 - 3.90 | EXTERNAL | | | Lymphocytes | performed at [facility], [address] | K/uL | LAB | | | | [address], | | | | | | [place] [address] | | | | + + + + + + | Absolute | 0.97 (H)Comment: Testing | 0.00 - 0.80 | EXTERNAL | | | Monocytes | performed at [facility], [address] | [address]/u[address] | LAB | | | | [address], | | | | | | [place] [address] | | | | + + + + + + | Absolute | 0.26Comment: Testing | 0.00 - 0.50 | EXTERNAL | | | Eosinophils | performed at [facility], [address] | K/uL | LAB | | | | [address], | | | | | | [place] [address] | | | | + + + + + + | Absolute | 0.08Comment: Testing | 0.00 - 0.10 | EXTERNAL | | | Basophils | performed at [facility], [address] | K/uL | LAB | | | | [address], | | | | | | [place] [address] | | | | + + + [...] EXTERNAL | | | | performed at [facility], [address] | | LAB | | | | [address], | | | | | | [place] [address] | | | | + + + [...] EXTERNAL | | | | performed at [facility], [address] | | LAB | | | | [address], | | | | | | [place] [address] | | | | + + + [...] EXTERNAL | | | | performed at [facility], [address] | mmol/L | LAB | | | | [address], | | | | | | [place] [address] | | | | + + + + + + | K | 4.1Comment: Testing | 3.5 - 4.9 | EXTERNAL | | | | performed at [facility], [address] | mmol/L | LAB | | | | [address], | | | | | | [place] [address] | | | | + + + + + + | Cl | 104Comment: Testing | 99 - 109 mmol/L | EXTERNAL | | | | performed at [facility], [address] | | LAB | | | | [address], | | | | | | [place] [address] | | | | + + + + + + | CO2 | 27Comment: Testing | 23 - 32 mmol/L | EXTERNAL | | | | performed at [facility], [address] | | LAB | | | | [address], | | | | | | [place] [address] | | | | + + + + + + | Anion Gap | 12Comment: Testing | 5 - 20 mmol/L | EXTERNAL | | | | performed at [facility], [address] | | LAB | | | | [address], | | | | | | [place] [address] | | | | + + + + + + | Glucose, | 143 (H)Comment: Testing | 65 - 99 mg/dL | EXTERNAL | | | Fasting | performed at [facility], [address] | | LAB | | | | [address], | | | | | | [place] [address] | | | | + + + + + + | BUN | 9Comment: Testing | 8 - 25 mg/dL | EXTERNAL | | | | performed at [facility], [address] | | LAB | | | | [address], | | | | | | [place] [address] | | | | + + + + + + | Creatinine | 0.6 (L)Comment: Testing | 0.70 - 1.30 | EXTERNAL | | | | performed at [facility], [address] | mg/dL | LAB | | | | [address], | | | | | | [place] [address] | | | | + + + + + + | BUN/Creatin | 15Comment: Testing | | EXTERNAL | | | ine Ratio | performed at [facility], [address] | | LAB | | | | [address], | | | | | | [place] [address] | | | | + + + + + + | Calcium | 8.6Comment: Testing | 8.5 - 10.5 | EXTERNAL | | | | performed at [facility], [address] | mg/dL | LAB | | | | [address], | | | | | | [place] [address] | | | | + + + [...] | | | | | [place] [address] | | | | + + + [...] | | | Fingerstick | performed at [facility];[address] | | LAB | | | [address];[place], [place] | | | | | | [address] | | | | + + + [...] | | | Fingerstick | performed at [facility];[address] | | LAB | | | | [address];[place], [place] | | | | | | [address] | | | | + + + [...] | | | Fingerstick | performed at [facility];[address] | | LAB | | | | [address];[place] | | | | | | [address] | | | | + + + [...] | | | Fingerstick | performed at [facility];[address] | | LAB | | | | [address];[place] | | | | | | [address] | | | | + + + [...] | | | | [facility], [address] | | | | | | [place] | | | | | | [address] | | | | + + + + + + | RED CELL | 4.92Comment: Testing | 4.20 - 5.70 | EXTERNAL | | | COUNT | performed at [facility], [address] | M/uL | LAB | | | | [address], | | | | | | [place] [address] | | | | + + + + + + | Hgb | 13.9Comment: Testing | 13.2 - 17.0 | EXTERNAL | | | | performed at [facility], [address] | g/dL | LAB | | | | [address], | | | | | | [place] [address] | | | | + + + + + + | Hematocrit, | 40.8Comment: Testing | 39.0 - 50.0 % | EXTERNAL | | | POC | performed at [facility], [address] | | LAB | | | | [address], | | | | | | [place] [address] | | | | + + + + + + | MCV | 83.0Comment: Testing | 80.0 - 100.0 fl | EXTERNAL | | | | performed at [facility], [address] | | LAB | | | | [address], | | | | | | [place] [address] | | | | + + + + + + | MCH | 28.3Comment: Testing | 27.0 - 34.0 pg | EXTERNAL | | | | performed at [facility], [address] | | LAB | | | | [address], | | | | | | [place] [address] | | | | + + + + + + | MCHC | 34.0Comment: Testing | 32.0 - 35.5 | EXTERNAL | | | | performed at [facility], [address] | g/dL | LAB | | | | [address], | | | | | | [place] [address] | | | | + + + + + + | RDW-CV | 42.4Comment: Testing | 37 - 53 fl | EXTERNAL | | | | performed at [facility], [address] | | LAB | | | | [address], | | | | | | [place] [address] | | | | + + + + + + | Platelet | 215Comment: Testing | 150 - 400 K/uL | EXTERNAL | | | Count | performed at [facility], [address] | | LAB | | | Plasma | [address], | | | | | | [place] [address] | | | | + + + + + + | MPV | 8.5Comment: Testing | fl | EXTERNAL | | | | performed at [facility], [address] | | LAB | | | | [address], | | | | | | [place] [address] | | | | + + + + + + | Differentia | AUTOMATEDComment: | | EXTERNAL | | | l Type | Testing performed at | | LAB | | | | [facility], [address] | | | | | | [place] | | | | | | [address] | | | | + + + + + + | % Segmented | 70.19Comment: Testing | % | EXTERNAL | | | | performed at [facility], [address] | | LAB | | | Neutrophils | [address], | | | | | | [place] [address] | | | | + + + + + + | % | 17.93Comment: Testing | % | EXTERNAL | | | Lymphocytes | performed at [facility], [address] | | LAB | | | | [address], | | | | | | [place] [address] | | | | + + + + + + | % Monocytes | 8.97Comment: Testing | % | EXTERNAL | | | | performed at [facility], [address] | | LAB | | | | [address], | | | | | | [place] [address] | | | | + + + + + + | % | 2.27Comment: Testing | % | EXTERNAL | | | Eosinophils | performed at [facility], [address] | | LAB | | | | [address], | | | | | | [place] [address] | | | | + + + + + + | % Basophils | 0.64Comment: Testing | % | EXTERNAL | | | | performed at [facility], [address] | | LAB | | | | [address], | | | | | | [place] [address] | | | | + + + + + + | Absolute | 7.86 (H)Comment: Testing | 1.90 - 7.40 | EXTERNAL | | | Segmented | performed at [facility], [address] | [address]/uL | LAB | | | Neutrophils | [address], | | | | | | [place] [address] | | | | + + + + + + | Absolute | 2.01Comment: Testing | 1.00 - 3.90 | EXTERNAL | | | Lymphocytes | performed at [facility], [address] | K/uL | LAB | | | | [address], | | | | | | [place] [address] | | | | + + + + + + | Absolute | 1.01 (H)Comment: Testing | 0.00 - 0.80 | EXTERNAL | | | Monocytes | performed at [facility], [address] | [address] | LAB | | | | [address], | | | | | | [place] [address] | | | | + + + + + + | Absolute | 0.25Comment: Testing | 0.00 - 0.50 | EXTERNAL | | | Eosinophils | performed at [facility], [address] | K/uL | LAB | | | | [address], | | | | | | [place] [address] | | | | + + + + + + | Absolute | 0.07Comment: Testing | 0.00 - 0.10 | EXTERNAL | | | Basophils | performed at [facility], [address] | K/uL | LAB | | | | [address], | | | | | | [place] [address] | | | | + + + [...] EXTERNAL | | | | performed at [facility], [address] | | LAB | | | | [address], | | | | | | [place] [address] | | | | + + + [...] | | | | | [place] [address] | | | | + + + [...] | | | | | [place] [address] | | | | + + + + + + | K | 3.9Comment: Testing | 3.5 - 4.9 | EXTERNAL | | | | performed at [facility], [address] | mmol/L | LAB | | | | [address], | | | | | | [place] [address] | | | | + + + + + + | Cl | 103Comment: Testing | 99 - 109 mmol/L | EXTERNAL | | | | performed at [facility], [address] | | LAB | | | | [address], | | | | | | [place] [address] | | | | + + + + + + | CO2 | 25Comment: Testing | 23 - 32 mmol/L | EXTERNAL | | | | performed at [facility], [address] | | LAB | | | | [address], | | | | | | [place] [address] | | | | + + + + + + | Anion Gap | 15Comment: Testing | 5 - 20 mmol/L | EXTERNAL | | | | performed at [facility], [address] | | LAB | | | | [address], | | | | | | [place] [address] | | | | + + + + + + | Glucose, | 132 (H)Comment: Testing | 65 - 99 mg/dL | EXTERNAL | | | Fasting | performed at [facility], [address] | | LAB | | | | [address], | | | | | | [place] [address] | | | | + + + + + + | BUN | 9Comment: Testing | 8 - 25 mg/dL | EXTERNAL | | | | performed at [facility], [address] | | LAB | | | | [address], | | | | | | [place] [address] | | | | + + + + + + | Creatinine | 0.5 (L)Comment: Testing | 0.70 - 1.30 | EXTERNAL | | | | performed at [facility], [address] | mg/dL | LAB | | | | [address], | | | | | | [place] [address] | | | | + + + + + + | BUN/Creatin | 18Comment: Testing | | EXTERNAL | | | ine Ratio | performed at [facility], [address] | | LAB | | | | [address], | | | | | | [place] [address] | | | | + + + + + + | Calcium | 8.4 (L)Comment: Testing | 8.5 - 10.5 | EXTERNAL | | | | performed at [facility], [address] | mg/dL | LAB | | | | [address], | | | | | | [place] [address] | | | | + + + + + + | Protein, | 6.0 (L)Comment: Testing | 6.3 - 8.2 g/dL | EXTERNAL | | | Total | performed at [facility], [address] | | LAB | | | | [address], | | | | | | [place] [address] | | | | + + + + + + | Albumin | 3.0 (L)Comment: Testing | 3.3 - 4.8 g/dL | EXTERNAL | | | | performed at [facility], [address] | | LAB | | | | [address], | | | | | | [place] [address] | | | | + + + + + + | Globulin | 3.0Comment: Testing | 1.3 - 4.9 g/dL | EXTERNAL | | | | performed at [facility], [address] | | LAB | | | | [address], | | | | | | [place] [address] | | | | + + + + + + | A/G Ratio | 1.0Comment: Testing | 1.0 - 2.4 | EXTERNAL | | | | performed at [facility], [address] | | LAB | | | | [address], | | | | | | [place] [address] | | | | + + + + + + | Bilirubin | 1.4Comment: Testing | 0.1 - 1.5 mg/dL | EXTERNAL | | | Total | performed at [facility], [address] | | LAB | | | [address], | | | | | | [place] [address] | | | | + + + + + + | ALP, | 77Comment: Testing | 35 - 115 U/L | EXTERNAL | | | External | performed at [facility], [address] | | LAB | | | | [address], | | | | | | [place] [address] | | | | + + + + + + | AST | 14Comment: Testing | 10 - 45 U/L | EXTERNAL | | | | performed at [facility], [address] | | LAB | | | | [address], | | | | | | [place] [address] | | | | + + + + + + | ALT | 13Comment: Testing | 10 - 65 U/L | EXTERNAL | | | | performed at [facility], [address] | | LAB | | | | [address], | | | | | | [place] [address] | | | | + + + [...] | | | | | | [place] [address] | | | | + + + [...] | | | Fingerstick | performed at [facility];[address] | | LAB | | | [address];[place], [place] | | | | | | [address] | | | | + + + [...] | | | Fingerstick | performed at [facility];[address] | | LAB | | | | [address];[place] | | | | | | [address] | | | | + + + [...] | | | to suboptimal images. MEASUREMENTS Assembly Mechanic: | | | KVW Authenticated by: Aleksandar [...] due to suboptimal images. MEASUREMENTS | | Assembly Mechanic: Valentinticated by: Aleksandar Pacheco Date/Time: 05-16-2016 20:59:22 [...] | |MEASUREMENTS | | | | | |Assembly Mechanic: KVW | |Authenticated by: Aleksandar Dotson | [...] | | | Fingerstick | performed at [facility];[address] | | LAB | | | | [address];[place], [place] | | | | | | [address] | | | | + + + [...] was also examined | | | with [employer] 3D software for evaluation of the cerebral [...] Conversion - 11/02/2018 6:55 AM PDT REAGAN [id number] years MaleCTA | | HEAD NECK W [...] The data set was also examined with [employer] 3D software for evaluation of the cerebral [...] [place] | | | | | | [address] | | | | + + + + + + | RED CELL | 4.77Comment: Testing | 4.20 - 5.70 | EXTERNAL | | | COUNT | performed at [facility], [address] | M/uL | LAB | | | | [address], | | | | | | [place] [address] | | | | + + + + + + | Hgb | 13.4Comment: Testing | 13.2 - 17.0 | EXTERNAL | | | | performed at [facility], [address] | g/dL | LAB | | | | [address], | | | | | | [place] [address] | | | | + + + + + + | Hematocrit, | 39.1Comment: Testing | 39.0 - 50.0 % | EXTERNAL | | | POC | performed at [facility], [address] | | LAB | | | | [address], | | | | | | [place] [address] | | | | + + + + + + | MCV | 82.0Comment: Testing | 80.0 - 100.0 fl | EXTERNAL | | | | performed at [facility], [address] | | LAB | | | | [address], | | | | | | [place] [address] | | | | + + + + + + | MCH | 28.0Comment: Testing | 27.0 - 34.0 pg | EXTERNAL | | | | performed at [facility], [address] | | LAB | | | | [address], | | | | | | [place] [address] | | | | + + + + + + | MCHC | 34.1Comment: Testing | 32.0 - 35.5 | EXTERNAL | | | | performed at [facility], [address] | g/dL | LAB | | | | [address], | | | | | | [place] [address] | | | | + + + + + + | RDW-CV | 42.9Comment: Testing | 37 - 53 fl | EXTERNAL | | | | performed at [facility], [address] | | LAB | | | | [address], | | | | | | [place] [address] | | | | + + + + + + | Platelet | 238Comment: Testing | 150 - 400 K/uL | EXTERNAL | | | Count | performed at [facility], [address] | | LAB | | | Plasma | [address], | | | | | | [place] [address] | | | | + + + + + + | MPV | 8.8Comment: Testing | fl | EXTERNAL | | | | performed at [facility], [address] | | LAB | | | | [address], | | | | | | [place] [address] | | | | + + + + + + | Differentia | AUTOMATEDComment: | | EXTERNAL | | | l Type | Testing performed at | | LAB | | | | [facility], [address], [place], [place] | | | | | | [address] | | | | + + + + + + | % Segmented | 68.92Comment: Testing | % | EXTERNAL | | | | performed at [facility], [address] | | LAB | | | Neutrophils | [address], | | | | | | [place] [address] | | | | + + + + + + | % | 18.94Comment: Testing | % | EXTERNAL | | | Lymphocytes | performed at [facility], [address] | | LAB | | | | [address], | | | | | | [place] [address] | | | | + + + + + + | % Monocytes | 10.32Comment: Testing | % | EXTERNAL | | | | performed at [facility], [address] | | LAB | | | | [address], | | | | | | [place] [address] | | | | + + + + + + | % | 1.25Comment: Testing | % | EXTERNAL | | | Eosinophils | performed at [facility], [address] | | LAB | | | | [address], | | | | | | [place] [address] | | | | + + + + + + | % Basophils | 0.57Comment: Testing | % | EXTERNAL | | | | performed at [facility], [address] | | LAB | | | | [address], | | | | | | [place] [address] | | | | + + + + + + | Absolute | 8.86 (H)Comment: Testing | 1.90 - 7.40 | EXTERNAL | | | Segmented | performed at [facility], [address] | LAB | | | [address] | [address], | | | | | | [place] [address] | | | | + + + + + + | Absolute | 2.44Comment: Testing | 1.00 - 3.90 | EXTERNAL | | | Lymphocytes | performed at [facility], [address] | LAB | | | | [address], | | | | | | [place] [address] | | | | + + + + + + | Absolute | 1.33 (H)Comment: Testing | 0.00 - 0.80 | EXTERNAL | | | Monocytes | performed at [facility], [address] | LAB | | | | [address], | | | | | | [place] [address] | | | | + + + + + + | Absolute | 0.16Comment: Testing | 0.00 - 0.50 | EXTERNAL | | | Eosinophils | performed at [facility], [address] | [address] | LAB | | | | [address], | | | | | | [place] [address] | | | | + + + + + + | Absolute | 0.07Comment: Testing | 0.00 - 0.10 | EXTERNAL | | | Basophils | performed at [facility], [address] | [address] | LAB | | | | [address], | | | | | | [place] [address] | | | | + + + [...] | | | Fingerstick | performed at [facility] [place] | | LAB | | | | [address];[place] | | | | | | [address] | | | | + + + [...] | | | | | performed at [facility], [address] | | | | | | [address], | | | | | | [place] [address] | | | | + + + [...] | | | | | performed at [facility], [address] | | | | | | Loi Jaramillo, | | | | | | [place] [address] | | | | + + + [...] | | | | | [place] [address] | | | | + + + + + + | K | 4.2Comment: SPECIMEN | 3.5 - 4.9 | EXTERNAL | | | | SLIGHTLY | mmol/L | LAB | | | | HEMOLYZEDTesting | | | | | | performed at [facility], [address] | | | | | | [address], | | | | | | [place] [address] | | | | + + + + + + | Cl | 104Comment: Testing | 99 - 109 mmol/L | EXTERNAL | | | | performed at [facility], [address] | | LAB | | | | [address], | | | | | | [place] [address] | | | | + + + + + + | CO2 | 25Comment: Testing | 23 - 32 mmol/L | EXTERNAL | | | | performed at [facility], [address] | | LAB | | | | [address], | | | | | | [place] [address] | | | | + + + + + + | Anion Gap | 14Comment: Testing | 5 - 20 mmol/L | EXTERNAL | | | | performed at [facility], [address] | | LAB | | | | [address], | | | | | | [place] [address] | | | | + + + [...] | | | | | [place] [address] | | | | + + + + + + | BUN | 9Comment: Testing | 8 - 25 mg/dL | EXTERNAL | | | | performed at [facility], [address] | | LAB | | | | [address], | | | | | | [place] [address] | | | | + + + + + + | Creatinine | 0.7Comment: SPECIMEN | 0.70 - 1.30 | EXTERNAL | | | | SLIGHTLY | mg/dL | LAB | | | | HEMOLYZEDTesting | | | | | | performed at [facility], [address] | | | | | | [address], | | | | | | [place] [address] | | | | + + + + + + | BUN/Creatin | 13Comment: Testing | | EXTERNAL | | | ine Ratio | performed at [facility], [address] | | LAB | | | | [address], | | | | | | [place] [address] | | | | + + + + + + | Calcium | 8.5Comment: Testing | 8.5 - 10.5 | EXTERNAL | | | | performed at [facility], [address] | mg/dL | LAB | | | | [address], | | | | | | [place] [address] | | | | + + + + + + | Protein, | 5.8 (L)Comment: Testing | 6.3 - 8.2 g/dL | EXTERNAL | | | Total | performed at [facility], [address] | | LAB | | | | [address], | | | | | | [place] [address] | | | | + + + + + + | Albumin | 2.8 (L)Comment: Testing | 3.3 - 4.8 g/dL | EXTERNAL | | | | performed at [facility], [address] | | LAB | | | | [address], | | | | | | [place] [address] | | | | + + + + + + | Globulin | 3.0Comment: Testing | 1.3 - 4.9 g/dL | EXTERNAL | | | | performed at [facility], [address] | | LAB | | | [address], | | | | | | [place] [address] | | | | + + + + + + | A/G Ratio | 0.9 (L)Comment: Testing | 1.0 - 2.4 | EXTERNAL | | | | performed at [facility], [address] | | LAB | | | | [address], | | | | | | [place] [address] | | | | + + + + + + | Bilirubin | 1.7 (H)Comment: SPECIMEN | 0.1 - 1.5 mg/dL | EXTERNAL | | | Total | SLIGHTLY | | LAB | | | | HEMOLYZEDTesting | | | | | | performed at [facility], [address] | | | | [address], | | | | | | [place] [address] | | | | + + + + + + | ALP, | 77Comment: Testing | 35 - 115 U/L | EXTERNAL | | | External | performed at [facility], [address] | | LAB | | | | [address], | | | | | | [place] [address] | | | | + + + + + + | AST | 18Comment: SPECIMEN | 10 - 45 U/L | EXTERNAL | | | | SLIGHTLY | | LAB | | | | HEMOLYZEDTesting | | | | | | performed at [facility], [address] | | | | | | [place], | | | | | | [place] [address] | | | | + + + + + + | ALT | 15Comment: SPECIMEN | 10 - 65 U/L | EXTERNAL | | | | SLIGHTLY | | LAB | | | | HEMOLYZEDTesting | | | | | | performed at [facility], [address] | | | | | | [place]am[address], | | | | | | [place] [address] | | | | + + + [...] | | | | | | [place] [address] | | | | + + + [...] | | | Fingerstick | performed at [facility];[address] | | LAB | | | | Bruna Jaramillo;[place] | | | | | | [address] | | | | + + + [...] | | | Fingerstick | performed at [facility];[address] | | LAB | | | | [address] Jaram[address];[place], [place] | | | | | | [address] | | | | + + + [...] | | | | | [place] [address] | | | | + + + [...] | | | Fingerstick | performed at [facility];[address] | | LAB | | | | [address];[place] | | | | | | [address] | | | | + + + [...] brain without | | | gadolinium. 3-D stch-wn-xdfubp MR angiography was also performed to | [...] the brain without gadolinium. 3-D | | lhho-ix-stgxuz MR angiography was also performed to the [...] | | | Fingerstick | performed at [facility];[address] | | LAB | | | | [address];[place], [place] | | | | | | [address] | | | | + + + [...] | | | Fingerstick | performed at [facility];[address] | | LAB | | | | [address];[place] | | | | | | [address] | | | | + + + [...] | | | Fingerstick | performed at [facility];[address] | | LAB | | | | [address];[place] | | | | | | [address] | | | | + + + [...] | | | Fingerstick | performed at [facility];[address] | | LAB | | | | Bruna Jaram[address];[place] | | | | | | [address] | | | | + + + [...] K/uL | LAB | | | | [facility], [address] [facility] | | | | | | [place] | | | | | | [address] | | | | + + + + + + | RED CELL | 5.01Comment: Testing | 4.20 - 5.70 | EXTERNAL | | | COUNT | performed at [facility], [address] | M/uL | LAB | | | | [place], | | | | | | [place] [address] | | | | + + + + + + | Hgb | 14.0Comment: Testing | 13.2 - 17.0 | EXTERNAL | | | | performed at [facility], [address] | g/dL | LAB | | | | [address], | | | | | | [place] [address] | | | | + + + + + + | Hematocrit, | 40.8Comment: Testing | 39.0 - 50.0 % | EXTERNAL | | | POC | performed at [facility], [address] | | LAB | | | | [address], | | | | | | [place] [address] | | | | + + + + + + | MCV | 81.5Comment: Testing | 80.0 - 100.0 fl | EXTERNAL | | | | performed at [facility], [address] | | LAB | | | | [address], | | | | | | [place] [address] | | | | + + + + + + | MCH | 27.9Comment: Testing | 27.0 - 34.0 pg | EXTERNAL | | | | performed at [facility], [address] | | LAB | | | | [address], | | | | | | [place] [address] | | | | + + + + + + | MCHC | 34.2Comment: Testing | 32.0 - 35.5 | EXTERNAL | | | | performed at [facility], [address] | g/dL | LAB | | | | [address], | | | | | | [place] [address] | | | | + + + + + + | RDW-CV | 42.0Comment: Testing | 37 - 53 fl | EXTERNAL | | | | performed at [facility], [address] | | LAB | | | | [address], | | | | | | [place] [address] | | | | + + + + + + | Platelet | 257Comment: Testing | 150 - 400 K/uL | EXTERNAL | | | Count | performed at [facility], [address] | | LAB | | | Plasma | [address], | | | | | | [place] [address] | | | | + + + + + + | MPV | 8.4Comment: Testing | fl | EXTERNAL | | | | performed at [facility], [address] | | LAB | | | | [address], | | | | | | [place] [address] | | | | + + + + + + | Differentia | AUTOMATEDComment: | | EXTERNAL | | | l Type | Testing performed at | | LAB | | | | [facility], [address] | | | | | | [place] | | | | | | [address] | | | | + + + + + + | % Segmented | 72.88Comment: Testing | % | EXTERNAL | | | | performed at [facility], [address] | | LAB | | | Neutrophils | [address], | | | | | | [place] [address] | | | | + + + + + + | % | 17.64Comment: Testing | % | EXTERNAL | | | Lymphocytes | performed at [facility], [address] | | LAB | | | | [address], | | | | | | [place] [address] | | | | + + + + + + | % Monocytes | 8.16Comment: Testing | % | EXTERNAL | | | | performed at [facility], [address] | | LAB | | | | [address], | | | | | | [place] [address] | | | | + + + + + + | % | 1.06Comment: Testing | % | EXTERNAL | | | Eosinophils | performed at [facility], [address] | | LAB | | | | [address], | | | | | | [place] [address] | | | | + + + + + + | % Basophils | 0.26Comment: Testing | % | EXTERNAL | | | | performed at [facility], [address] | | LAB | | | | [place], | | | | | | [place] [address] | | | | + + + + + + | Absolute | 10.84 (H)Comment: | 1.90 - 7.40 | EXTERNAL | | | Segmented | Testing performed at | K/uL | LAB | | | Neutrophils | [facility], [address] | | | | | | [place] | | | | | | [address] | | | | + + + + + + | Absolute | 2.62Comment: Testing | 1.00 - 3.90 | EXTERNAL | | | Lymphocytes | performed at [facility], [address] | K/uL | LAB | | | | [place], | | | | | | [place] [address] | | | | + + + + + + | Absolute | 1.21 (H)Comment: Testing | 0.00 - 0.80 | EXTERNAL | | | Monocytes | performed at [facility], [address] | K/uL | LAB | | | | [address], | | | | | | [place] [address] | | | | + + + + + + | Absolute | 0.16Comment: Testing | 0.00 - 0.50 | EXTERNAL | | | Eosinophils | performed at [facility], [address] | K/uL | LAB | | | | [address], | | | | | | [place] [address] | | | | + + + + + + | Absolute | 0.04Comment: Testing | 0.00 - 0.10 | EXTERNAL | | | Basophils | performed at [facility], [address] | K/uL | LAB | | | | [place], | | | | | | [place] [address] | | | | + + + [...] EXTERNAL | | | | performed at [facility], [address] | | LAB | | | | [place], | | | | | | [place] [address] | | | | + + + [...] EXTERNAL | | | | performed at [facility], [address] | | LAB | | | | [place], | | | | | | [place] [address] | | | | + + + [...] | EXTERNAL | | | A1c | [place] Diabetes | | LAB | | | [...] | | | | | performed at [facility], [address] | | | | | [address] [facility] [address], | | | | | | [place] [address] | | | | + + + [...] | | | | | performed at [facility], [address] | | | | | | [place], | | | | | | [place] [address] | | | | + + + [...] | | | | | [place] [address] | | | | + + + + + + | Triglycerid | 152 (H)Comment: Testing | mg/dL | EXTERNAL | | | es | performed at [facility], [address] | | LAB | | | | [address], | | | | | | [place] [address] | | | | + + + + + + | HDL | 31 (L)Comment: Testing | mg/dL | EXTERNAL | | | | performed at [facility], [address] | | LAB | | | | [address], | | | | | | [place] [address] | | | | + + + + + + | LDL | 47Comment: Testing | mg/dL | EXTERNAL | | | Cholesterol | performed at [facility], [address] | | LAB | | | , | [address], | | | | | Calculated, | [place] [address] | | | | | External | [...] | | | | | [place] [address] | | | | + + + + + + | K | 3.3 (L)Comment: Testing | 3.5 - 4.9 | EXTERNAL | | | | performed at [facility], [address] | mmol/L | LAB | | | [address], | | | | | | [place] [address] | | | | + + + + + + | Cl | 104Comment: Testing | 99 - 109 mmol/L | EXTERNAL | | | | performed at [facility], [address] | | LAB | | | | [address], | | | | | | [place] [address] | | | | + + + + + + | CO2 | 25Comment: Testing | 23 - 32 mmol/L | EXTERNAL | | | | performed at [facility], [address] | | LAB | | | | [address], | | | | | | [place] [address] | | | | + + + + + + | Anion Gap | 12Comment: Testing | 5 - 20 mmol/L | EXTERNAL | | | | performed at [facility], [address] | | LAB | | | | [address], | | | | | | [place] [address] | | | | + + + + + + | Glucose, | 125 (H)Comment: Testing | 65 - 99 mg/dL | EXTERNAL | | | Fasting | performed at [facility], [address] | | LAB | | | | [address], | | | | | | [place] [address] | | | | + + + + + + | BUN | 11Comment: Testing | 8 - 25 mg/dL | EXTERNAL | | | | performed at [facility], [address] | | LAB | | | | [address], | | | | | | [place] [address] | | | | + + + + + + | Creatinine | 0.7Comment: Testing | 0.70 - 1.30 | EXTERNAL | | | | performed at [facility], [address] | mg/dL | LAB | | | | [address], | | | | | | [place] [address] | | | | + + + + + + | BUN/Creatin | 16Comment: Testing | | EXTERNAL | | | ine Ratio | performed at [facility], [address] | | LAB | | | | [address], | | | | | | [place] [address] | | | | + + + + + + | Calcium | 8.3 (L)Comment: Testing | 8.5 - 10.5 | EXTERNAL | | | | performed at [facility], [address] | mg/dL | LAB | | | | [address], | | | | | | [place] [address] | | | | + + + [...] [address], | | | | | | [place] [address] | | | | + + + [...] | | | Fingerstick | performed at [facility];[address] | | LAB | | | | Bruna Jaram[address];[place] | | | | | | [address] | | | | + + + [...] | | | Fingerstick | performed at [facility];[address] | | LAB | | | | Bruna Jaram[address];[place] | | | | | | [address] | | | | + + + [...] | | | Fingerstick | performed at [facility];[address] | | LAB | | | | [address];[place] | | | | | | [address] | | | | + + + [...] | | | Fingerstick | performed at [facility];[address] | | LAB | | | | Bruna Jaram[address];[place] | | | | | | [address] | | | | + + + [...] | | | Fingerstick | performed at [facility];[address] | | LAB | | | | [address]una [address];[place], [place] | | | | | | [address] | | | | + + + [...] | | | Fingerstick | performed at [facility];[address] | | LAB | | | | [address]una [address];[place], [place] | | | | | | [address] | | | | + + + [...] | | | Fingerstick | performed at [facility];[address] | | LAB | | | [address];[place], [place] | | | | | | [address] | | | | + + + [...] | | | Fingerstick | performed at [facility];[address] | | LAB | | | | Bruna Jaram[address];[place] | | | | | | [address] | | | | + + + [...] | | | Fingerstick | performed at [facility];[address] | | LAB | | | | [place];[place] | | | | | | [address] | | | | + + + [...] | | | Fingerstick | performed at [facility];[address] | | LAB | | | | [address]una [address]am[address];[place] | | | | | | [address] | | | | + + + [...] | | | Fingerstick | performed at [facility];[address] | | LAB | | | | [place]una [place] | | | | | | [address] | | | | + + + [...] | | | Fingerstick | performed at [facility];[address] | | LAB | | | | [address];[place] | | | | | | [address] | | | | + + + [...] | | | Fingerstick | performed at [facility];[address] | | LAB | | | [address];[place], [place] | | | | | | [address] | | | | + + + [...] | | | Fingerstick | performed at [facility];[address] | | LAB | | | | [address];[place] | | | | | | [address] | | | | + + + [...] | | | Fingerstick | performed at [facility];8 | | LAB | | | | [address]una [address];[place] | | | | | | [address] | | | | + + + [...] | | | Fingerstick | performed at [facility];[address] | | LAB | | | | [address];[place], [place] | | | | | | [address] | | | | + + + [...] | | Jefe: 0.48 m/s TV Dec [place]: 3.62 m/s2 TV Dec Time: 136.62 | | | ms TV E Jefe: 0.49 m/s TV E/A Ratio: 1.02 Assembly Mechanic: TRINY | | | Authenticated by: Aleksandar [...] | Index (A-L): 25.78 ml/m2LAAs A2C: 20.06 [id number] A-L A2C: 56.80 mlLAESV MOD A2C: | | 53.98 mlLALs A2C: 6.01 cmLAAs A4C: 18.67 [id number] A-L A4C: 45.70 mlLAESV MOD A4C: | | 43.69 mlLALs A4C: 6.47 cmHR: 94.31 BPMAV maxP.45 mmHgAV meanP.54 | | mmHgAV Vmax: 1.61 m/Abilio Vmean: 1.22 m/Abilio VTI: 27.30 cmAVA Vmax: 2.68 cm2AVA | | (VTI): 2.69 mv8LWWH Vmax: 0.00 cm2/m2AVAI (VTI): 0.00 cm2/m2LVCI Dopp: 3.08 | | [id number] Dopp: 6.31 l/minHR: 85.80 BPMLVOT maxP.48 mmHgLVOT meanP.11 | | mmHgLVSI Dopp: 35.92 ml/m2LVSV Dopp: 73.65 mlLVOT Vmax: 1.36 m/sLVOT Vmean: 0.96 | | m/sLVOT VTI: 23.22 cmMCO: 392.13 msMV A Jefe: 1.50 m/sMV DecT: 213.25 msMV E | | Jefe: 0.88 m/sMV E/A Ratio: 0.59MV PHT: 74.39 msMVA By PHT: 2.95 qt4Rpaeiy e': | | 0.05 m/sSeptal E/e': 14.80RAP: 8 mmHgTV A Jefe: 0.48 m/sTV Dec [place]: 3.62 m/s2TV | | Dec Time: 136.62 msTV E Jefe: 0.49 m/sTV E/A Ratio: 1.02 Assembly Mechanic: | | GDAuthenticated by: Aleksandar HernandezraReport Date/Time: [...] A Jefe: 0.48 m/s | |TV Dec [place]: 3.62 m/s2 | |TV Dec Time: 136.62 ms | |TV E Jefe: 0.49 m/s | |TV E/A Ratio: 1.02 | | | |Assembly Mechanic: TRINY | |Authenticated by: Aleksandar Dotson | [...] EXTERNAL LAB | | Testing performed at [facility];[address] [place] [address];[place] [address] MRSA PCR | | | NEGATIVE Testing performed at | | | [address];[place] [address] | | + + + + +---------+ [...] | | | Fingerstick | performed at [facility];[address] | | LAB | | | | [address]una [place]am[address];[place] | | | | | | [address] | | | | + + + [...] + + | Historically converted procedure from [facility] environment | EXTERNAL [...] | Ischemic stroke diagnosed during current admission ([facility]) | + + | Type 2 diabetes mellitus with diabetic neuropathy, with long-term current use of | | insulin ([facility]) | + + | Moderate protein-calorie malnutrition ([facility]) Malnutrition of moderate degree | + + | Gastroesophageal reflux disease without esophagitis Esophageal reflux | + + | Hypokalemia Hypopotassemia | + + | Essential hypertension, benign | + + documented in this encounter
--- OUTSIDE RECORDS SUMMARY | ~2019-03-28 | XMS | Encounter Summary ---
Demographics + + + | Address | [address] | | | [place] [address] | + + + | Home Phone | | + + + | Preferred Language | Unknown | + + + | Marital Status | | + + + | Mosque Affiliation | 1076 | + + + | Race | Unknown | + + + | Ethnic Group | Unknown | + + + Author + + + | Author | [facility] | | | and [place] | + + + | Organization | [facility] | | | and [place] | + + + | Address | Unknown | + + + | Phone | Unavailable | + + + Support + + + + + | Name | Relationship | Address | Phone | + + + + + | Jessica Shepard | ECON | [address] | | | | | [place] | | | | | [address] | | + + + + + | Bel Solis | ECON | Unknown | | + + + + + | José Shepard | ECON | [place] | | | | | [address] | | + + + + + | Jessica Shepard | ECON | Unknown | | + + + + + Care Team Providers + +------+ + | Care Inside Outside Sales Representative Name | Role | Phone | + +------+ + | Dian Lr NP | PCP | | + +------+ + Encounter Details +--------+ + + + + | Date | Type | Department | Care Team | Description | +--------+ + + + + | 01/03/ | Lab | [facility] | Toby Ortiz | Other acute | | 2018 | Requisition | [facility] | MD [address] | osteomyelitis, right | | | | [address] [place] | [facility] | ankle and foot | | | | [place], [place] | [place] [address] | ([facility]); Diabetes | | | | [address] | [phone] | mellitus due to | | | | [phone] | | underlying condition | | | | | | with foot ulcer | | | | | | (CODE) ([facility]); Other | | | | | | exterminator termite (current) | | | | | | drug therapy | +--------+ + + + + Social [...] + | SEDIMENTATION RATE | Routin | 01/03/2018 | Other acute | Results for this | | | e | 9:45 AM | osteomyelitis, right | procedure are in the | | | | PDT | ankle and foot | results section. | | | | | ([facility]) Diabetes | | | | | | mellitus due to | | | | | | underlying condition | | | | | | with foot ulcer | | | | | | (CODE) ([facility]) Other | | | | | | jail (current) | | | | | | drug therapy | | + +--------+ + + + | CBC WITH | Routin | 01/03/2018 | Other acute | Results for this | | DIFFERENTIAL | e | 9:45 AM | osteomyelitis, right | procedure are in the | | | | PDT | ankle and foot | results section. | | | | | ([facility]) Diabetes | | | | | | mellitus due to | | | | | | underlying condition | | | | | | with foot ulcer | | | | | | (CODE) ([facility]) Other | | | | | | jail (current) | | | | | | drug therapy | | + +--------+ + + + | C-REACTIVE PROTEIN | Routin | 01/03/2018 | Other acute | Results for this | | | e | 9:45 AM | osteomyelitis, right | procedure are in the | | | | PDT | ankle and foot | results section. | | | | | ([facility]) Diabetes | | | | | | mellitus due to | | | | | | underlying condition | | | | | | with foot ulcer | | | | | | (CODE) ([facility]) Other | | | | | | exterminator termite (current) | | | | | | drug therapy | | + +--------+ + + + | COMPREHENSIVE | Routin | 01/03/2018 | Other acute | Results for this | | METABOLIC PANEL | e | 9:45 AM | osteomyelitis, right | procedure are in the | | | | PDT | ankle and foot | results section. | | | | | ([facility]) Diabetes | | | | | | mellitus due to | | | | | | underlying condition | | | | | | with foot ulcer | | | | | | (CODE) (HCC) Other | | | | | | exterminator termite (current) | | | | | | drug therapy | | + +--------+ + + + documented in this encounter Results Comprehensive Metabolic Panel (01/03/2018 9:45 AM PDT) + + + + + + | Component | Value | Ref Range | Performed | Pathologist | | | | | At | Signature | + + + + + + | Na | 137 | 136 - 149 | [facility] | | | | | mmol/L | [facility] | | | | | | [facility] | | | | | | C[facility] - | | | | | | LABORATORY | | + + + + + + | K | 4.3 | 3.5 - 5.1 | [facility] | | | | | mmol/L | [facility] | | | | | | [facility] | | | | | | CENTER - | | | | | | LABORATORY | | + + + + + + | Cl | 100 | 98 - 109 mmol/L | [facility] | | | | | | [facility] | | | | | | [facility] | | | | | | CENTER - | | | | | | LABORATORY | | + + + + + + | CO2 | 29 | 24 - 31 mmol/L | [facility] [...] + + + + | Glucose | 179 (H) | 70 - 109 mg/dL | [facility] | | | | | | [facility] | | | | | | [facility] | | | | | | CENTER - | | | | | | LABORATORY | | + + + + + + | BUN | 12 | 7 - 18 mg/dL | [facility] | | | | | | [facility] | | | | | | [facility] | | | | | | CENTER - | | | | | | LABORATORY | | + + + + + + | Creatinine | 0.63 | 0.60 - 1.30 | [facility] | [...] | | | FILTRATION | mL/min/1.73m2 | [facility] | | | [facility] | RATE,ESTIMATED | | MEDICAL | | | | mL/min/1.31q6Kknm than | | CENTER - | | [...] + + + | Calcium | 8.4 | 8.3 - 10.5 | [facility] | | | | | mg/dL | [facility] | | | | | | MEDICAL | | | | | | CENTER - | | | | | | LABORATORY | | + + + + + + | Albumin | 2.9 (L) | 3.2 - 5.0 g/dL | [facility] | | | | | | [facility] | | | | | | MEDICAL | | | | | | CENTER - | | | | | | LABORATORY | | + + + + + + | Bilirubin | 1.1 | 0.1 - 1.5 mg/dL | [facility] | | | Total | | | [facility] | | | | | | MEDICAL | | | | | | CENTER - | | | | | | LABORATORY | | + + + + + + | Total | 6.5 | 6.0 - 7.8 g/dL | [facility] | | | Protein | | | [facility] | | | | | | MEDICAL | | | | | | CENTER - | | | | | | LABORATORY | | + + + + + + | AST | 18 | 10 - 42 U/L | [facility] | | | | | | [facility] | | | | | | MEDICAL | | | | | | CENTER - | | | | | | LABORATORY | | + + + + + + | ALT | 17 | 6 - 45 U/L | [facility] | | | | | | [facility] | | | | | | MEDICAL | | | | | | CENTER - | | | | | | LABORATORY | | + + + + + + | Alkaline | 102 | 40 - 110 U/L | [facility] | | | Phosphatase | | | [facility] | | | | | | MEDICAL | | | | | | CENTER - | | | | | | LABORATORY | | + + + + + + | Globulin | 3.6 | 2.1 - 3.8 g/dL | [facility] | | | | | | [facility] | | | | | | MEDICAL | | | | | | CENTER - | | | | | | LABORATORY | | + + + + + + | Albumin/Inna | 0.8 | 0.8 - 2.0 | [facility] | | | bulin Ratio | | | [facility] | | | | | | MEDICAL | | | | | | CENTER - | | | | | | LABORATORY | | + + + + + + | BUN/Creatin | 19.0 | | [facility] | | | ine Ratio | | | [facility] | | [...] [address] | [place] | [phone] | | [facility] | | [address] | | | - LABORATORY | | | | + + + + + C-Reactive Protein (01/03/2018 9:45 AM PDT) + + + + + + | Component | Value | Ref Range | Performed | Pathologist | | | | | At | Signature | + + + + + + | CRP | 111.44 (H) | <8.00 mg/L | [facility] | | | | | [...] + | [facility] | [address] | [place] | [phone] | | [facility] | | [address] | | | - LABORATORY | | | | + + + + + Sedimentation Rate (01/03/2018 9:45 AM PDT) + +--------+ + + + | Component | Value | Ref Range | Performed | Pathologist | | | | | At | Signature | + +--------+ + + + | ESR | 49 (H) | <20 mm/hr | [facility] | | | | | | [facility] [...] + | [facility] | [address] | [place] | [phone] | | [facility] | | [address] | | | - LABORATORY | | | | + + + + + CBC with Differential (01/03/2018 9:45 AM PDT) + + + + + + | Component | Value | Ref Range | Performed | Pathologist | | | | | At | Signature | + + + + + + | WBC | 16.6 (H) | 4.0 - 11.0 K/uL | [facility] | | | | | | [facility] | | | | | | MEDICAL | | | | | | CENTER - | | | | | | LABORATORY | | + + + + + + | RBC | 4.83 | 4.30 - 5.70 | [facility] | [...] + + + + | Hematocrit | 36.4 (L) | 40.0 - 51.0 % | [facility] | | | | | | [facility] | | | | | | MEDICAL | | | | | | CENTER - | | | | | | LABORATORY | | + + + + + + | MCV | 75.4 (L) | 83.0 - 101.0 fL | [facility] | | | | | | [facility] | | [facility] | | | MEDICAL | | | | | | CENTER - | | | | | | LABORATORY | | + + + + + + | MCH | 23.4 (L) | 28.0 - 35.0 pg | [facility] | | | | | | [facility] | | | | | | MEDICAL | | | | | | CENTER - | | | | | | LABORATORY | | + + + + + + | MCHC | 31.0 (L) | 32.0 - 36.0 | [facility] | | | | | g/dL | [facility] | | | | | | MEDICAL | | | | | | CENTER - | | | | | | LABORATORY | | + + + + + + | RDW-CV | 16.7 (H) | <15.0 % | [facility] | | | | | | [facility] | | | | | | MEDICAL | | | | | | CENTER - | | | | | | LABORATORY | | + + + + + + | RDW-SD | 45.1 | 35.1 - 46.3 fL | [facility] | | | | | | [facility] | | | | | | MEDICAL | | | | | | CENTER - | | | | | | LABORATORY | | + + + + + + | Platelet | 318 | 140 - 440 K/uL | [facility] | | | Count | | | [facility] | | | | | | MEDICAL | | | | | | CENTER - | | | | | | LABORATORY | | + + + + + + | MPV | 10.2 | 6.5 - 12.4 fL | [facility] | | | | | | [facility] | | | | | | MEDICAL | | | | | | CENTER - | | | | | | LABORATORY | | + + + + + + | % | 73.4 | 45.0 - 82.0 % | [facility] | | | Neutrophils | | | [facility] | | | | | | MEDICAL | | | | | | CENTER - | | | | | | LABORATORY | | + + + + + + | % | 12.5 (L) | 20.0 - 45.0 % | [facility] | | | Lymphocytes | | | [facility] | | | | | | MEDICAL | | | | | | CENTER - | | | | | | LABORATORY | | + + + + + + | % Monocytes | 10.1 | 4.0 - 12.0 % | [facility] | | | | | | [facility] | | | | | | MEDICAL | | | | | | CENTER - | | | | | | LABORATORY | | + + + + + + | % | 2.8 | 0.0 - 5.0 % | [facility] [...] + + + + + | % Immature | 0.7 (H)Comment: | 0.0 - 0.4 % | [facility] | | | Granulocyte | Preliminary studIes have | | [facility] | | | s | indicated the IG% | | MEDICAL | | | | and/or IG# show promise | | CENTER - | | | | as an early screen for | | LABORATORY | | | | infection. | | | | + + + + + + | Absolute | 12.19 (H) | 1.80 - 8.50 | [facility] | | | Neutrophils | | K/uL | [facility] | | | | | | MEDICAL | | | | | | CENTER - | | | | | | LABORATORY | | + + + + + + | Absolute | 2.08 | 0.60 - 3.20 | [facility] | | | Lymphocytes | | K/uL | [facility] | | | | | | MEDICAL | | | | | | CENTER - | | | | | | LABORATORY | | + + + + + + | Absolute | 1.68 (H) | 0.00 - 1.00 | [facility] | | | Monocytes | | K/uL | [facility] | | | | | | MEDICAL | | | | | | CENTER - | | | | | | LABORATORY | | + + + + + + | Absolute | 0.47 (H) | 0.00 - 0.40 | [facility] | | | Eosinophils | | K/uL | [facility] | | | | | | MEDICAL | | | | | | CENTER - | | | | | | LABORATORY | | + + + + + + | Absolute | 0.09 | 0.00 - 0.10 | [facility] | | | Basophils | | K/uL | [facility] | | | | | | MEDICAL | | | | | | CENTER - | | | | | | LABORATORY | | + + + + + + | Absolute | 0.11 (H) | 0.00 - 0.03 | [facility] | | | Immature | | K/uL | [facility] | | | Granulocyte | | | MEDICAL | | | s | | | CENTER - | | | | | | LABORATORY | | + + + + + + | % nRBC | 0 | 0 - 2 per 100 | [facility] | | | | | WBC's | [facility] | | | | | | MEDICAL | | | | | | CENTER - | | | | | | LABORATORY | | + + + + + + | Absolute | 0.00 | 0.00 - 0.01 | [facility] | | | nRBC | | K/uL | 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
--- OUTSIDE RECORDS SUMMARY | ~2019-03-28 | XMS | Encounter Summary ---
Demographics + + + | Address | [address] | | | [place] [address] | + + + | Home Phone | | + + + | Preferred Language | Unknown | + + + | Marital Status | | + + + | Cheondoism Affiliation | 1076 | + + + | Race | Unknown | + + + | Ethnic Group | Unknown | + + + Author + + + | Author | [facility] | | | and [place] | + + + | Organization | [facility] | | | and [place] | + + + | Address | Unknown | + + + | Phone | Unavailable | + + + Support + + + + + | Name | Relationship | Address | Phone | + + + + + | Jessica Shepard | ECON | [address] | | | | | [place] | | | | | [address] | | + + + + + | Bel Solis | ECON | Unknown | | + + + + + | José Shepard | ECON | [place] | | | | | [address] | | + + + + + | Jessica Shepard | ECON | Unknown | | + + + + + Care Team Providers + +------+ + | Care Bowling Ball Patcher Name | Role | Phone | + +------+ + | Dian Lr NP | PCP | | + +------+ + Encounter Details +--------+ + + + + | Date | Type | Department | Care Team | Description | +--------+ + + + + | 07/21/ | Orders Only | [facility] | Conversion | | | 2019 | | INFECTIOUS DISEASE | Transaction, | | | | | [address] | Provider Unknown | | | | | [place] | [phone] | | | | | [address] | | | | | | [phone] | | | +--------+ + + + [...]
--- OUTSIDE RECORDS SUMMARY | ~2019-03-28 | XMS | Encounter Summary ---
Demographics + + + | Address | [address] | | | [place] [address] | + + + | Home Phone | | + + + | Preferred Language | Unknown | + + + | Marital Status | | + + + | Congregation Affiliation | 1076 | + + + | Race | Unknown | + + + | Ethnic Group | Unknown | + + + Author + + + | Author | [facility] | | | and [place] | + + + | Organization | [facility] | | | and [place] | + + + | Address | Unknown | + + + | Phone | Unavailable | + + + Support + + + + + | Name | Relationship | Address | Phone | + + + + + | Jessica Shepard | ECON | [address] | | | | | [place] | | | | | [address] | | + + + + + | Bel Solis | ECON | Unknown | | + + + + + | José Shepard | ECON | [place] | | | | | [address] | | + + + + + | Jessica Shepard | ECON | Unknown | | + + + + + Care Team Providers + +------+ + | Care Senior Visual Designer Name | Role | Phone | + +------+ + | Dian Lr NP | PCP | | + +------+ + Encounter Details +--------+ + + + + | Date | Type | Department | Care Team | Description | +--------+ + + + + | 11/26/ | Hospital | [facility] | Toby Ortiz | | | 2018 | Encounter | MED CTR XRAY [address] | [address] | | | | | [place] | [facility] | | | | | [place] [address] | [place] [address] | | | | | [phone] | [phone] | | | | | | | [...] the mid SVC. Dictated and Signed by: Cral | | | MD Jody Electronically signed: [...]
--- OUTSIDE RECORDS SUMMARY | ~2019-03-28 | XMS | Encounter Summary ---
Demographics + + + | Address | [address] | | | [place] [address] | + + + | Home Phone | | + + + | Preferred Language | Unknown | + + + | Marital Status | | + + + | Anabaptism Affiliation | 1076 | + + + | Race | Unknown | + + + | Ethnic Group | Unknown | + + + Author + + + | Author | [facility] | | | and [place] | + + + | Organization | [facility] | | | and [place] | + + + | Address | Unknown | + + + | Phone | Unavailable | + + + Support + + + + + | Name | Relationship | Address | Phone | + + + + + | Jessica Shepard | ECON | [address] | | | | | [place] | | | | | [address] | | + + + + + | Bel Solis | ECON | Unknown | | + + + + + | José Shepard | ECON | [place] | | | | | [address] | | + + + + + | Jessica Shepard | ECON | Unknown | | + + + + + Care Team Providers + +------+ + | Care Reading Coach Name | Role | Phone | + +------+ + | Dian Lr NP | PCP | | + +------+ + Encounter Details +--------+ + + + + | Date | Type | Department | Care Team | Description | +--------+ + + + + | 10/16/ | Orders Only | [facility] | Provider, | Other acute | | 2019 | | SYSTEM GENERIC OP | [address] | osteomyelitis, right | | | | [address] | [address] | ankle and foot | | | | [address] [place], [place] | [place] [address] | ([facility]) | | | | [address] | | | | | | [phone] | | | +--------+ + + + [...] Other acute osteomyelitis, right ankle and foot ([facility]) | + + documented in this encounter"
--- OUTSIDE RECORDS SUMMARY | ~2019-03-28 | XMS | Encounter Summary ---
Demographics + + + | Address | [address] | | | [place] [address] | + + + | Home Phone | | + + + | Preferred Language | Unknown | + + + | Marital Status | | + + + | Sabianism Affiliation | 1076 | + + + | Race | Unknown | + + + | Ethnic Group | Unknown | + + + Author + + + | Author | [facility] | | | and [place] | + + + | Organization | [facility] | | | and [place] | + + + | Address | Unknown | + + + | Phone | Unavailable | + + + Support + + + + + | Name | Relationship | Address | Phone | + + + + + | Jessica Shepard | ECON | [address] | | | | | [place] | | | | | [address] | | + + + + + | Bel Solis | ECON | Unknown | | + + + + + | José Shepard | ECON | [place] | | | | | [address] | | + + + + + | Jessica Shepard | ECON | Unknown | | + + + + + Care Team Providers + +------+ + | Care Network Intelligence Analyst Name | Role | Phone | + +------+ + PCP | Unavailable | + +------+ + Encounter Details +--------+ + + + + | Date | Type | Department | Care Team | Description | +--------+ + + + + | 09/14/ | Hospital | [facility] | | | | 2001 | Encounter | MED CTR XRAY [address] | | | | | | [place] | | | | | | [place] [address] | | | | | | [phone] | | | +--------+ + + + [...]
--- OUTSIDE RECORDS SUMMARY | ~2019-03-28 | XMS | Encounter Summary ---
Demographics + + + | Address | [address] | | | [place] [address] | + + + | Home Phone | | + + + | Preferred Language | Unknown | + + + | Marital Status | | + + + | Mormon Affiliation | 1076 | + + + | Race | Unknown | + + + | Ethnic Group | Unknown | + + + Author + + + | Author | [facility] | | | and [place] | + + + | Organization | [facility] | | | and [place] | + + + | Address | Unknown | + + + | Phone | Unavailable | + + + Support + + + + + | Name | Relationship | Address | Phone | + + + + + | Jessica Shepard | ECON | [address] | | | | | [place] | | | | | [address] | | + + + + + | Bel Solis | ECON | Unknown | | + + + + + | José Shepard | ECON | [place] | | | | | [address] | | + + + + + | Jessica Shepard | ECON | Unknown | | + + + + + Care Team Providers + +------+ + | Care Airframe Design Engineer Name | Role | Phone | + +------+ + PCP | Unavailable | + +------+ + Encounter Details +--------+ + + + + | Date | Type | Department | Care Team | Description | +--------+ + + + + | 02/22/ | Hospital | [facility] | | | | 2000 | Encounter | MED CTR XRAY [address] | | | | | | [place] | | | | | | [place] [address] | | | | | | [phone] | | | +--------+ + + + [...]
--- OUTSIDE RECORDS SUMMARY | ~2019-03-28 | XMS | Encounter Summary ---
Demographics + + + | Address | [address] | | | [place] [address] | + + + | Home Phone | | + + + | Preferred Language | Unknown | + + + | Marital Status | | + + + | Quaker Affiliation | 1076 | + + + | Race | Unknown | + + + | Ethnic Group | Unknown | + + + Author + + + | Author | [facility] | | | and [place] | + + + | Organization | [facility] | | | and [place] | + + + | Address | Unknown | + + + | Phone | Unavailable | + + + Support + + + + + | Name | Relationship | Address | Phone | + + + + + | Jessica Shepard | ECON | [address] | | | | | [place] | | | | | [address] | | + + + + + | Bel Solis | ECON | Unknown | | + + + + + | José Shepard | ECON | [place] | | | | | [address] | | + + + + + | Jessica Shepard | ECON | Unknown | | + + + + + Care Team Providers + +------+ + | Care Utility Bagger Name | Role | Phone | + +------+ + PCP | Unavailable | + +------+ + Encounter Details +--------+ + + + + | Date | Type | Department | Care Team | Description | +--------+ + + + + | 02/22/ | Hospital | [facility] | | | | 2000 | Encounter | MED CTR XRAY [address] | | | | | | [place] | | | | | | [place] [address] | | | | | | [phone] | | | +--------+ + + + [...]
--- OUTSIDE RECORDS SUMMARY | ~2019-03-28 | XMS | Encounter Summary ---
Demographics + + + | Address | [address] | | | [place] [address] | + + + | Home Phone | | + + + | Preferred Language | Unknown | + + + | Marital Status | | + + + | Samaritan Affiliation | 1076 | + + + | Race | Unknown | + + + | Ethnic Group | Unknown | + + + Author + + + | Author | [facility] | | | and [place] | + + + | Organization | [facility] | | | and [place] | + + + | Address | Unknown | + + + | Phone | Unavailable | + + + Support + + + + + | Name | Relationship | Address | Phone | + + + + + | Jessica Shepard | ECON | [address] | | | | | [place] | | | | | [address] | | + + + + + | Bel Solis | ECON | Unknown | | + + + + + | José Shepard | ECON | [place] | | | | | [address] | | + + + + + | Jessica Shepard | ECON | Unknown | | + + + + + Care Team Providers + +------+ + | Care Mess Cook Name | Role | Phone | + +------+ + | Dian Lr NP | PCP | | + +------+ + Encounter Details +--------+ + + + + | Date | Type | Department | Care Team | Description | +--------+ + + + + | 11/26/ | Hospital | [facility] | Toby Ortiz | | | 2018 | Encounter | MED CTR XRAY [address] | [address] | | | | | [place] | [facility] | | | | | [place] [address] | [place] [address] | | | | | [phone] | [phone] | | | | | | | [...]
--- OUTSIDE RECORDS SUMMARY | ~2019-03-28 | XMS | Encounter Summary ---
Demographics + + + | Address | [address] | | | [place] [address] | + + + | Home Phone [...] [facility] | | | and [place] | + + + | Address | Unknown | + + + | Phone | Unavailable | + + + Support + + + + + | Name | Relationship | Address | Phone | + + + + + | Jessica Shepard | ECON | [address] | | | | | [place] | | | | | [address] | | + + + + + | eBl Solis | ECON | Unknown | | + + + + + | José Shepard | ECON | [place] | | | | | [address] | | + + + + + | Jesisca Shepard | ECON | Unknown | | + + + + + Care Team Providers + +------+ + | Care Corporate Officer Name | Role | Phone | + +------+ + | Dian Lr NP | PCP | | + +------+ + Encounter Details +--------+ + + + + | Date | Type | Department | Care Team | Description | +--------+ + + + + | 07/21/ | Orders Only | [facility] | Conversion | | | 2019 | | INFECTIOUS DISEASE | Transaction, | | | | | [address] | Provider Unknown | | | | | [place] | [phone] | | | | | [address] | | | | | | [phone] | | | +--------+ + + + [...]
--- OUTSIDE RECORDS SUMMARY | ~2019-03-28 | XMS | Encounter Summary ---
Demographics + + + | Address | [address] | | | [place] [address] | + + + | Home Phone [...] Organization | [facility] | | | and [place] | + + + | Address | Unknown | + + + | Phone | Unavailable | + + + Support + + + + + | Name | Relationship | Address | Phone | + + + + + | Jessica Shepard | ECON | [phone] | | | | | [place] | | | | | [phone] | | + + + + + | Bel Solis | ECON | Unknown | | + + + + + | José Shepard | ECON | [place] | | | | | [phone] | | + + + + + | Jessica Shepard | ECON | Unknown | | + + + + + Care Team Providers + +------+ + | Care Spray Painter Helper Name | Role | Phone | + +------+ + | Dian Lr NP | PCP | | + +------+ + Encounter Details +--------+ + + + + | Date | Type | Department | Care Team | Description | +--------+ + + + + | 05/14/ | Hospital | [facility] | Conversion | Pain | | 2017 | Encounter | [address] | Transaction, | | | | | [address] | Provider Unknown | | | | | [place] | [phone] | | | | | [phone] | | | | | | [phone] | | | +--------+ + + + [...]
--- OUTSIDE RECORDS SUMMARY | ~2019-03-28 | XMS | Clinical Summary ---
Demographics + + + | Address | [address] | | | [place] [address] | + + + | Home Phone [...] | Author | [facility] | | | and [place] | + + + | Organization | [facility] | | | and [place] | + + + | Address | Unknown | + + + | Phone | Unavailable | + + + Support + + + + + | Name | Relationship | Address | Phone | + + + + + | Jessica Shepard | ECON | [address] | | | | | [place] | | | | | [address] | | + + + + + | Bel Solis | ECON | Unknown | | + + + + + | José Shepard | ECON | [place] | | | | | [address] | | + + + + + | Jessica Shepard | ECON | Unknown | | + + + + + Care Team Providers + +------+ + | Care Office Rental Clerk Name | Role | Phone | + +------+ + | Dian Lr PLATFORM MILL SUPERVISOR | PCP | | + +------+ + [...] + + + | Overview: 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 | + + + + + [...] +--------+ +---------+--------+ | MEDICARE | MEDICA | [id number] | | [phone] | | Medica | | | RE | | 012-Pr | 5 | | re | | | PART A | | esent | | | | | | AND B | | | | | | + +--------+ +--------+ +---------+--------+ | VETERANS ADMIN | VETERA | [id number] | | | | Indemn | | | NS | | 018-Pr | | | ity | | | ADMIN | | esent | | | | | | [place] | | | | | | | | [place] | | | | | | + +--------+ +--------+ +---------+--------+ | MEDICARE | MEDICA | [id number] | | [phone] | | Medica | [...] Person | Self | [birth year] | [address] | | | al/Fam | | 1945 | [id number] | [employer] [place] | | | carlos | | | 2 (Home) | [address] | + +--------+ +--------+ + + | Reagan Shepard | Person | Self | [birth year] | | [address] | | | al/Fam | | 1945 | [phone] | [place] | | | carlos | | | 2 (Home) | [address] | + +--------+ +--------+ + + Advance Directives + + + + + | Type | Date Recorded | Patient | Explanation | | | | Cardiograph Operator | | + + + + + | Power of | | | | | Blocker And Cutter Contact Lens | | | | + + + [...]
--- OUTSIDE RECORDS SUMMARY | ~2019-03-28 | XMS | Encounter Summary ---
Demographics + + + | Address | [address] | | | [place] [address] | + + + | Home Phone [...] | Organization | [facility] | | | and [place] | + + + | Address | Unknown | + + + | Phone | Unavailable | + + + Support + + + + + | Name | Relationship | Address | Phone | + + + + + | Jessica Shepard | ECON | [address] | | | | | [place] | | | | | [address] | | + + + + + | Bel Solis | ECON | Unknown | | + + + + + | José Shepard | ECON | [place] | | | | | [address] | | + + + + + | Jessica Shepard | ECON | Unknown | | + + + + + Care Team Providers + +------+ + | Care Architectural Practice Manager Name | Role | Phone | + +------+ + PCP | Unavailable | + +------+ + Encounter Details +--------+ + + + + | Date | Type | Department | Care Team | Description | +--------+ + + + + | 04/16/ | Hospital | [facility] | Dian Lr NP | | | 2011 | Encounter | MED CTR XRAY [address] | [address] | | | | | [place] | [place] [address] | | | | | [place] [address] | [phone] | | | | | [phone] | | | +--------+ + + + [...] for this | | STUDY EDDIE AUGUST JODY | | 11:20 AM | | procedure are in the | | ASSESSMENT | | PST | | results section. | + +--------+ + + + documented in this encounter Results DEXA Bone Density Study (04/16/2011 11:20 AM PST) + + | Specimen | + + | | + + + + + | Narrative | Performed At | + + + | [facility] Diagnostic Imaging Department | [facility] | | [address] [facility] | [facility] | | BONE DENSITY TESTING: | DIAG [...] Transcribed Date/Time: | | | 04/16/2011 14:14 Assurance Engineer: VIVEK <Electronically Signed | | | by David Guillermo MD> 04/16/11 1459 | | + + + + + | Procedure Note | + + | Eliel Ornelas Conversion - 04/27/2013 4:38 PM [facility]ly [facility] | | Diagnostic Imaging Department [address] [place] [address] | | BONE DENSITY TESTIN04/16/2011 CLINICAL HISTORY: [...] 13:48 | |Transcribed Date/Time: 04/16/2011 14:14 | |Assurance Engineer: | |<Electronically Signed by David Guillermo MD> 04/16/11 6020 | + + + +---------+ + + | Performing | Address | City/State/Zipcode | Phone Number | | Organization | | | | + +---------+ + + | [place] | | | | | [facility] | | | | + +---------+ + + documented in this encounter Visit Diagnoses Not on filedocumented in this encounter"
--- OUTSIDE RECORDS SUMMARY | ~2019-03-28 | XMS | Clinical Summary ---
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 | + + + + + | Acute left hemiparesis (HCC) | 05/14/2016 | + + + | Type 2 diabetes mellitus with hyperglycemia, with long-term | 05/14/2016 | | current use of insulin ([facility]) | | + + + [...] + + | MEDICARE | MEDICA | [id number] | | | [address] | | | RE | | | | [place] [address] | | | IP-OP | | | | | + +--------+ +------+ + + | VETERANS | VETERA | [id number] | | [phone] FEE SERVICES [id number] | | ADMINISTRATION | [place] | | | [phone] | [phone] | | | ADMINI | | | | [place] | | | [place] | | | | [address] | | | [place] | | | [...] | Self | [birth year] | Home: | [address] | | | al/Fam | | 7 | +- | [place] | | | carlos | | | [address] | [address] | + +--------+ +--------+ + + | SAROJ AMEZQUITA | Vetera | Self | [birth year] | Home: | [address] | | | ns | | 1944 | +- | [place] | | | Admini | | | [address] | [address] | | | strati | | | | | | | on | | | | | + +--------+ +--------+ + +
--- OUTSIDE RECORDS SUMMARY | ~2019-03-28 | XMS | Encounter Summary ---
Demographics + + + | Address | [address] | | | [place] [address] | + + + | Home Phone [...] | Organization | [facility] | | | and [place] | + + + | Address | Unknown | + + + | Phone | Unavailable | + + + Support + + + + + | Name | Relationship | Address | Phone | + + + + + | Jessica Shepard | ECON | [address] | | | | | [place] | | | | | [address] | | + + + + + | Bel Solis | ECON | Unknown | | + + + + + | José Shepard | ECON | [place] | | | | | [address] | | + + + + + | Jessica Shepard | ECON | Unknown | | + + + + + Care Team Providers + +------+ + | Care Investigations Manager Name | Role | Phone | + +------+ + PCP | Unavailable | + +------+ + Encounter Details +--------+ + + + + | Date | Type | Department | Care Team | Description | +--------+ + + + + | 12/27/ | Hospital | [facility] | | | | 2006 | Encounter | MED CTR XRAY [address] | | | | | | [place] | | | | | | [place] [address] | | | | | | [phone] | | | +--------+ + + + [...]
--- OUTSIDE RECORDS SUMMARY | ~2019-03-28 | XMS | Clinical Summary ---
Demographics + + + | Address | [address] | | | [place] [address] | + + + | Home Phone | | + + + | Preferred Language | Unknown | + + + | Marital Status | | + + + | Moravian Affiliation | 1076 | + + + | Race | Unknown | + + + | Ethnic Group | Unknown | + + + Author + + + | Author | [facility] (Historical as of | | | 11-04-18) | + + + | Organization | [facility] (Historical as of | | | [...] Team Providers + +------+ + | Care Ammonia Refrigeration Worker Name | Role | Phone | [...] + + + | Overview: Problem List Clinic Physician Director Utility | + + + + + | Acute left hemiparesis (HCC) | 05/14/2016 | + + + | Type 2 diabetes mellitus with hyperglycemia, with long-term | 05/14/2016 | | current use of insulin ([facility]) | | + + + | Ischemic [...] + + | MEDICARE | MEDICA | [id number] | | | [address] | | | RE | | | | [place] [address] | | | IP-OP | | | | | + +--------+ +------+ + + | VETERANS | VETERA | [id number] | | [phone] FEE SERVICES [address] | | ADMINISTRATION | [place] | | | [address] | [address] | | | ADMINI | | | | [place] | | | [place] | | | | [address] | | | ON | | | [...] | Self | [birth year] | Home: | [address] | | | al/Fam | | 7 | +- | [place] | | | carlos | | | [address] | [address] | + +--------+ +--------+ + + | SAROJ AMEZQUITA | Vetera | Self | [birth year] | Home: | [address] | | | ns | | 1944 | +- | [place] | | | Admini | | | [address] | [address] | | | strati | | | | | | | on | | | | | + +--------+ +--------+ + +
--- OUTSIDE RECORDS SUMMARY | ~2019-03-28 | XMS | Encounter Summary ---
Demographics + + + | Address | [address] | | | [place] [address] | + + + | Home Phone [...] Organization | [facility] | | | and [place] | + + + | Address | Unknown | + + + | Phone | Unavailable | + + + Support + + + + + | Name | Relationship | Address | Phone | + + + + + | Jessica Shepard | ECON | [address] | | | | | [place] | | | | | [address] | | + + + + + | Bel Solis | ECON | Unknown | | + + + + + | José Shepard | ECON | [place] | | | | | [address] | | + + + + + | Jessica Shepard | ECON | Unknown | | + + + + + Care Team Providers + +------+ + | Care Field Ring Assembler Name | Role | Phone | + +------+ + | Dian Lr NP | PCP | | + +------+ + Encounter Details +--------+ + + + + | Date | Type | Department | Care Team | Description | +--------+ + + + + | 01/03/ | Lab | [facility] | Toby Ortiz | Other acute | | 2018 | Requisition | MED CTR LABORATORY | MD [address] | osteomyelitis, right | | | | [address] [place] | [facility] | ankle and foot | | | | [place], [place] | [place] [address] | ([facility]); Diabetes | | | | [address] | [phone] | mellitus due to | | | | [phone] | | underlying condition | | | | | | with foot ulcer | | | | | | (CODE) ([facility]); Other | | | | | | belt tender (current) | | | | | | [...] results section. | | | | | ([facility]) Diabetes | | | | | | mellitus due to | | | | | | underlying condition | | | | | | with foot ulcer | | | | | | (CODE) ([facility]) Other | | | | | | senior care (current) | | | | | | drug therapy | | + +--------+ + + + | CBC WITH | Routin | 01/03/2018 | Other acute | Results for this | | DIFFERENTIAL | e | 9:45 AM | osteomyelitis, right | procedure are in the | | | | PDT | ankle and foot | results section. | | | | | ([facility]) Diabetes | | | | | | mellitus due to | | | | | | underlying condition | | | | | | with foot ulcer | | | | | | (CODE) ([facility]) Other | | | | | | senior care (current) | | | | | | drug therapy | | + +--------+ + + + | C-REACTIVE PROTEIN | Routin | 01/03/2018 | Other acute | Results for this | | | e | 9:45 AM | osteomyelitis, right | procedure are in the | | | | PDT | ankle and foot | results section. | | | | | ([facility]) Diabetes | | | | | | mellitus due to | | | | | | underlying condition | | | | | | with foot ulcer | | | | | | (CODE) ([facility]) Other | | | | | | belt tender (current) | | | | | | drug therapy | | + +--------+ + + + | COMPREHENSIVE | Routin | 01/03/2018 | Other acute | Results for this | | METABOLIC PANEL | e | 9:45 AM | osteomyelitis, right | procedure are in the | | | | PDT | ankle and foot | results section. | | | | | ([facility]) Diabetes | | | | | | mellitus due to | | | | | | underlying condition | | | | | | with foot ulcer | | | | | | (CODE) (HCC) Other | | | | | | belt tender (current) | | | | | | [...] | mL/min/1.73m2 | [facility] | | | [place] | RATE,ESTIMATED | | MEDICAL | | | | mL/min/1.07h6Rwaa than | | CENTER - | | [...] [address] | [place] | [phone] | | [facility] | | [address] | | | - LABORATORY | | [...] + | [facility] | [address] | [place] | [phone] | | [facility] | | [address] | | | - LABORATORY | | [...] + | [address] | 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
--- OUTSIDE RECORDS SUMMARY | ~2019-03-28 | XMS | Encounter Summary ---
Demographics + + + | Address | [address] | | | [place] [address] | + + + | Home Phone [...] Organization | [facility] | | | and [place] | + + + | Address | Unknown | + + + | Phone | Unavailable | + + + Support + + + + + | Name | Relationship | Address | Phone | + + + + + | Jessica Shepard | ECON | [address] | | | | | [place] | | | | | [address] | | + + + + + | Bel Solis | ECON | Unknown | | + + + + + | José Shepard | ECON | [place] | | | | | [address] | | + + + + + | Jessica Shepard | ECON | Unknown | | + + + + + Care Team Providers + +------+ + | Care End Finder Forming Department Name | Role | Phone | + [...] Metatarsal | | | | [address] | [place] | | | | | [place] | [address] | | | | | [phone] | [phone] | | | | | [phone] | | | +--------+---------+ + + + [...] was used during the case. [facility] t lower extremity was then scrubbed, [...] -PT/OT ordered Code Status: Full Code Disposition: [facility] Discharge Condition: Stable, very deconditioned and weak at baseline Pleasant, no distress RRR, no m/r/g CTA bilaterally Soft, obese, NT Ext WWP, right foot ulcer with deep wound, slight purulent drainage Contact information for after-discharge care Placement Destination [facility] . Specialty: [facility] Facility Contact information: [address] [place] [address] Discharge Medications New Medications Details acetaminophen [...] signed by: Justin Reyna MD, 11/25/2017 13:01 [facility] documented in this encounter Medications [...] might be different f rom the original. [facility] Hospitalist Progress Note Reagan Shepard [...] pantoprazole Mechanical fall -PT/OT ordered Disposition : [facility] as soon as 11/25 Prophylaxis : [...] outlined above. Justin Reyna 11/24/2017 18:16 [facility] Sang Duff MD - 11/24/2017 1:59 PM PDTWe are evaluating the patient for further medical rehabilitatio n services. He does not qualify per [facility] guidelines for full inpatient rehab . I recommend he be transferred to SNF for further skilled therapies once he is cleared acute ly. Justin Rodriguez MD - 11/23/2017 2:24 PM PDT [facility] Hospitalist Progress Note Reagan Shepard [...] outlined above. Justin Reyna 11/23/2017 14:24 [facility] Simone Roth DPM - 11/23/2017 1:58 PM PDT Foot & Ankle Surgery Progress Note Simone Shepard Age/Gender 72 y.o. male Location [facility] Attending Karuna-Hwa Lori, MD Hosp Day [...] Value Units Date/Time Culture, Wound, Smear, w/Anaerobe [[id number]] Collected: 11/21/171207 Order Status: Sent Lab Status: In process Updated: 11/21/171249 Specimen: Tissue from Toe, Fifth/Small, Right Narrative: The following orders were created for panel order Culture, Wound, Smear, w/Anaerobe. Procedure Abnormality Status --------- ------ Culture, Wound, Smear[[id number]] In process Culture, Anaerobic[[id number]] In process Please view results for these tests on the individual orders. Culture, Wound, Smear [[id number]] Collected: 11/21/171207 Order Status: Sent Lab Status: In process Updated: 11/21/171249 Specimen: Tissue from Toe, Fifth/Small, Right Culture, Anaerobic [[id number]] Collected: 11/21/171207 Order Status: Sent Lab Status: [...] Simone Aceves DPM 13:58; 11/23/2017 Irasema Dominguez, Hims Manager - 11/23/2017 9:43 AM PDT PHARMACY SERVICES: [...] list names: [facility] reported information X Care Everywhere X [...] Prior to Admission Sig: Patient taking differently ASSISTANT SPA DIRECTOR as: Hydrocodone-acetaminophen 10-325 mg Take one tablet by mouth four times daily as needed fo r pain Patient taking 1 tablet three times daily as a scheduled dose Best possible ASSISTANT SPA DIRECTOR medication list after pharmacy review: PT [...] performed and electronically signed by Blanquita Bertrand, Guide Excursion 11/22/2017 8:38 Electronically signed by: Irasema Moyer, Hims Manager 11/23/2017 9:43 Justin Rodriguez MD - 11/22/2017 5:22 PM PDT [facility] Hospitalist Progress Note Reagan Shepard [...] outlined above. Justin Reyna 11/22/2017 17:40 [facility] Danielle Claire, Asian Art Curator - 11/22/2017 2:13 PM PDTFormatting of this [...] Diabetes mellitus (HCC); Stroke (cerebrum) ([facility]); an d TBI (traumatic brain injury) ([facility]). No risk factors for MDR [...] Value Units Date/Time Culture, Wound, Smear, w/Anaerobe [[id number]] Collected: 11/21/171207 Order Status: Sent Lab Status: In process Updated: 11/21/17 1250 Specimen: Tissue from Toe, Fifth/Small, Right Narrative: The following orders were created for panel order Culture, Wound, Smear, w/Anaerobe. Procedure Abnormality Status --------- ------ Culture, Wound, Smear[[id number]] Preliminary result Culture, Anaerobic[[id number]] In process Please view results for these tests on the individual orders. Culture, Wound, Smear [[id number]] Collected: 11/21/171207 Order Status: Completed Lab Status: Preliminary result Updated: 11/22/17 1021 Specimen: Tissue from Toe, Fifth/Small, Right Culture 2+ Lactose Fermenting Gram Negative Bacilli Comment: Identification and susceptibility to follow. Gram Stain Result 2+ White Blood Cells 1+ Epithelial cells 2+ Gram negative rods Culture, Anaerobic [[id number]] Collected: 11/21/17 120 Order Status: Sent Lab Status: In process Updated: 11/21/17 1250 Specimen: Tissue from Toe, Fifth/Small, Right Respiratory Virus Panel, NAAT [[id number]] Collected: 11/20/17 1257 Order Status: Completed Lab [...] pneumoniae DNA Not Detected Narrative: Performed at: [address] [place] [id number] Excellence Manager: Jurgen Costa MD, Phone: [phone] Culture, Wound, Smear [[id number]] (Susceptibility) Collected: 11/20/17 0825 Order Status: Completed [...] Sulfamethoxazole <=20 ug/mL Sensitive Culture, Wound, Smear [[id number]] (Susceptibility) Collected: 11/19/17 2031 Order Status: Completed [...] no longer reported. Culture, Respiratory, Lower, Smear [[id number]] Order Status: Sent Lab Status: No result Specimen: Body Fluid from Sputum, Expectorated Culture, Wound, Smear [[id number]] Order Status: Canceled Lab Status: No result Specimen: Tissue from Leg, Left Culture, Blood [[id number]] (Normal) Collected: 11/19/17 1537 Order Status: Completed Lab Status: Preliminary result Updated: 11/20/17 0351 Specimen: Blood from Peripheral Blood Culture No growth: Monitored continually by instrument for 5 days Culture, Blood [[id number]] (Normal) Collected: 11/19/17 1506 Order Status: Completed Lab Status: Preliminary result Updated: 11/20/17 0321 Specimen: Blood from Peripheral Blood Culture No growth: Monitored continually by instrument for 5 days Culture, Urine [[id number]] Collected: 11/19/17 1416 Order Status: Completed Lab [...] Monitoring Protocol Electronically signed by: Danielle Guillermo, Asian Art Curator 11/22/2017 14:13 Associated attestation - Luther Hampton [...] Simone Shepard Age/Gender 72 y.o. male Location [facility] Attending Mil Sandoval MD Hosp [...] Value Units Date/Time Culture, Wound, Smear, w/Anaerobe [[id number]] Collected: 11/21/171207 Order Status: Sent Lab Status: In process Updated: 11/21/17 125 Specimen: Tissue from Toe, Fifth/Small, Right Narrative: The following orders were created for panel order Culture, Wound, Smear, w/Anaerobe. Procedure Abnormality Status --------- ------ Culture, Wound, Smear[[id number]] In process Culture, Anaerobic[[id number]] In process Please view results for these tests on the individual orders. Culture, Wound, Smear [[id number]] Collected: 11/21/171207 Order Status: Sent Lab Status: In process Updated: 11/21/17 125 Specimen: Tissue from Toe, Fifth/Small, Right Culture, Anaerobic [[id number]] Collected: 11/21/171207 Order Status: Sent Lab Status: [...] Diabetes mellitus (HCC); Stroke (cerebrum) ([facility]); an d TBI (traumatic brain injury) ([facility]). . No risk factors for [...] Value Units Date/Time Culture, Wound, Smear, w/Anaerobe [[id number]] Collected: 11/21/17 1208 Order Status: Sent Lab Status: In process Updated: 11/21/17 1250 Specimen: Tissue from Toe, Fifth/Small, Right Narrative: The following orders were created for panel order Culture, Wound, Smear, w/Anaerobe. Procedure Abnormality Status --------- ------ Culture, Wound, Smear[[id number]] In process Culture, Anaerobic[[id number]] In process Please view results for these tests on the individual orders. Culture, Wound, Smear [[id number]] Collected: 11/21/17 1208 Order Status: Sent Lab Status: In process Updated: 11/21/17 1250 Specimen: Tissue from Toe, Fifth/Small, Right Culture, Anaerobic [[id number]] Collected: 11/21/17 1208 Order Status: Sent Lab Status: In process Updated: 11/21/17 1250 Specimen: Tissue from Toe, Fifth/Small, Right Respiratory Virus Panel, NAAT [[id number]] Collected: 11/20/17 1257 Order Status: Sent Lab Status: In process Updated: 11/20/17 1302 Specimen: Tissue from Nasopharynx Culture, Wound, Smear [[id number]] Collected: 11/20/17 0825 Order Status: Completed Lab Status: Preliminary result Updated: 11/21/17 0739 Specimen: Tissue from Foot, Right Culture 1+ Gram Negative Jayesh, NOT Pseudomonas Comment: Identification and susceptibility to follow. 1+ Gram Positive Cocci Comment: Isolating for additional information. Gram Stain Result 1+ White Blood Cells No organisms seen Culture, Wound, Smear [[id number]] (Susceptibility) Collected: 11/19/172030 Order Status: Completed Lab [...] <=20 ug/mL Sensitive Culture, Respiratory, Lower, Smear [[id number]] Order Status: Sent Lab Status: No result Specimen: Body Fluid from Sputum, Expectorated Culture, Wound, Smear [[id number]] Order Status: Canceled Lab Status: No result Specimen: Tissue from Leg, Left Culture, Blood [[id number]] (Normal) Collected: 11/19/17 1537 Order Status: Completed Lab Status: Preliminary result Updated: 11/20/17 0351 Specimen: Blood from Peripheral Blood Culture No growth: Monitored continually by instrument for 5 days Culture, Blood [[id number]] (Normal) Collected: 11/19/17 1506 Order Status: Completed Lab Status: Preliminary result Updated: 11/20/17 0321 Specimen: Blood from Peripheral Blood Culture No growth: Monitored continually by instrument for 5 days Culture, Urine [[id number]] Collected: 11/19/17 1416 Order Status: Completed Lab [...] Hoff MD - 11/21/2017 11:[address] [facility] [place] HOSPITALIST PROGRESS NOTE Patient: Reagan Shepard : 1945: Age: 72 y.o. MedRec: [id number] Admission date: 11/19/2017 Hospital day # : [...] units/mL injection (pen) 0-12 Units 0-12 Units Gmaa bcutaneous 4x Daily WC and HS Mil [...] E' Septal Velocity 4.79 cm/s MV Deceleration [place] 336.24 cm/s2 MV Deceleration Time 332.96 msec [...] Value Units Date/Time Respiratory Virus Panel, NAAT [[id number]] Collected: 11/20/17 1257 Order Status: Sent Lab Status: In process Updated: 11/20/17 1302 Specimen: Tissue from Nasopharynx Culture, Wound, Smear [[id number]] Collected: 11/20/17 0825 Order Status: Completed Lab Status: Preliminary result Updated: 11/21/17 0739 Specimen: Tissue from Foot, Right Culture 1+ Gram Negative Jayesh, NOT Pseudomonas Comment: Identification and susceptibility to follow. 1+ Gram Positive Cocci Comment: Isolating for additional information. Gram Stain Result 1+ White Blood Cells No organisms seen Culture, Wound, Smear [[id number]] (Susceptibility) Collected: 11/19/17 2031 Order Status: Completed [...] + Sulfamethoxazole <=20 ug/mL Sensitive Culture, Blood [[id number]] (Normal) Collected: 11/19/17 1537 Order Status: Completed Lab Status: Preliminary result Updated: 11/20/17 0351 Specimen: Blood from Peripheral Blood Culture No growth: Monitored continually by instrument for 5 days Culture, Blood [[id number]] (Normal) Collected: 11/19/17 1506 Order Status: Completed Lab Status: Preliminary result Updated: 11/20/17 0321 Specimen: Blood from Peripheral Blood Culture No growth: Monitored continually by instrument for 5 days Culture, Urine [[id number]] Collected: 11/19/17 1416 Order Status: Completed Lab [...] Pharmacy Consult Nasim Jimenez 11/21/2017 11:05 [facility] Nasim Hoff MD - 11/20/2017 10:04 AM PDT [facility] [place] HOSPITALIST PROGRESS NOTE Patient: Reagan Shepard : 1945: Age: 72 y.o. MedRec: [id number] Admission date: 11/19/2017 Hospital day # : [...] PH UA 5.0 5.0 - 8.0 Specific Armour 1.017 1.001 - 1.030 PROTEIN UA 30 [...] Component Value Units Date/Time Culture, Wound, Smear [[id number]] Collected: 11/20/17 0825 Order Status: Sent Lab Status: In process Updated: 11/20/17 0829 Specimen: Tissue from Foot, Right Culture, Wound, Smear [[id number]] Collected: 11/19/172030 Order Status: Completed Lab Status: Preliminary result Updated: 11/20/17 09 Specimen: Tissue from Leg, Lower, Right Culture 2+ Gram Negative Jayesh, NOT Pseudomonas Comment: Identification and susceptibility to follow. 1+ Gram Positive Cocci Comment: Isolating for additional information. Gram Stain Result No white blood cells (PMNs) seen 1+ Gram negative rods Culture, Blood [[id number]] (Normal) Collected: 11/19/17 1537 Order Status: Completed Lab Status: Preliminary result Updated: 11/20/17 0351 Specimen: Blood from Peripheral Blood Culture No growth: Monitored continually by instrument for 5 days Culture, Blood [[id number]] (Normal) Collected: 11/19/17 1506 Order Status: Completed Lab Status: Preliminary result Updated: 11/20/17 0321 Specimen: Blood from Peripheral Blood Culture No growth: Monitored continually by instrument for 5 days Culture, Urine [[id number]] (Normal) Collected: 11/19/17 1416 Order Status: Completed [...] Pharmacy Consult Nasim Jimenez 11/20/2017 10:05 [facility] hadra Walsh Phar mD - 11/20/2017 9:10 [...] Diabetes mellitus (HCC); Stroke (cerebrum) ([facility]); an d TBI (traumatic brain injury) ([facility]). . No risk factors for [...] Component Value Units Date/Time Culture, Wound, Smear [[id number]] Collected: 11/20/17 0825 Order Status: Sent Lab Status: In process Updated: 11/20/17 08 Specimen: Tissue from Foot, Right Culture, Wound, Smear [[id number]] Collected: 11/19/172030 Order Status: Completed Lab Status: Preliminary result Updated: 11/20/17 09 Specimen: Tissue from Leg, Lower, Right Culture 2+ Gram Negative Jayesh, NOT Pseudomonas Comment: Identification and susceptibility to follow. 1+ Gram Positive Cocci Comment: Isolating for additional information. Gram Stain Result No white blood cells (PMNs) seen 1+ Gram negative rods Culture, Respiratory, Lower, Smear [[id number]] Order Status: Sent Lab Status: No result Specimen: Body Fluid from Sputum, Expectorated Culture, Wound, Smear [[id number]] Order Status: Canceled Lab Status: No result Specimen: Tissue from Leg, Left Culture, Blood [[id number]] (Normal) Collected: 11/19/17 1537 Order Status: Completed Lab Status: Preliminary result Updated: 11/20/17 0351 Specimen: Blood from Peripheral Blood Culture No growth: Monitored continually by instrument for 5 days Culture, Blood [[id number]] (Normal) Collected: 11/19/17 1506 Order Status: Completed Lab Status: Preliminary result Updated: 11/20/17 0321 Specimen: Blood from Peripheral Blood Culture No growth: Monitored continually by instrument for 5 days Culture, Urine [[id number]] (Normal) Collected: 11/19/17 1416 Order Status: Completed [...] Diabetes mellitus (HCC); Stroke (cerebrum) ([facility]); an d TBI (traumatic brain injury) ([facility]). . No risk factors for [...] Value Units Date/Time Culture, Respiratory, Lower, Smear [[id number]] Order Status: Sent Lab Status: No result Specimen: Body Fluid from Sputum, Expectorated Culture, Wound, Smear [[id number]] Order Status: Sent Lab Status: No result Specimen: Tissue from Leg, Left Culture, Blood [[id number]] Collected: 11/19/17 1537 Order Status: Sent Lab Status: In process Updated: 11/19/17 1543 Specimen: Blood from Peripheral Blood Culture, Blood [[id number]] Collected: 11/19/17 1506 Order Status: Sent Lab Status: In process Updated: 11/19/17 1511 Specimen: Blood from Peripheral Blood Culture, Urine [[id number]] Collected: 11/19/17 1416 Order Status: Sent Lab [...] the | | | | PDT | ([facility]) | results section. | + +--------+ + [...] K?MRN: | | | | | | [id number] | | | [id number] | | | his | | | [...] | | | ent/06 | | | [id number] | | | -9b07- | | | [...] | | | St. | | | [place] | | | y H. | | [...] | | | St. | | | [place] | | | y | | | [...] [address] | [place] | [phone] | | [facility] | | [address] | | | - LABORATORY | | [...] [address] | [place] | [phone] | | [facility] | | [address] | | | - LABORATORY | | [...] [address] | [place] | [phone] | | [facility] | | [address] | | | - LABORATORY | | [...] | | | | | mg/dL | [facility] | | | | | | MEDICAL | | | | | | CENTER - | | | | | | LABORATORY | | + + + + + + | eGFR if not | >60Comment: GLOMERULAR | >=60 | [facility] | | | | FILTRATION | mL/min/1.73m2 | [facility] | | | LIBERIAN | RATE,ESTIMATED | | MEDICAL | | | | mL/min/1.76v6Bqxb than | | CENTER - | | [...] | | | | | mg/dL | [facility] | | | | | | [...] [address] | [place] | [phone] | | [facility] | | [address] | | | - LABORATORY | | [...] (H) | 4.0 - 11.0 K/uL | [facility] | | | | | | [facility] | | | | | | MEDICAL | | | | | | CENTER - | | | | | | LABORATORY | | + + + + + + | RBC | 4.60 | 4.30 - 5.70 | [facility] | | | | | M/uL | [facility] | | | | | | [...] + | [facility] | [address] | [place] | [phone] | | [facility] | | [address] | | | - LABORATORY | | [...] ST. | [address] | [place], [place] | [phone] | | [facility] | | [address] | | | - LABORATORY | | [...] [address] | [place] | [phone] | | [facility] | | [address] | | | - LABORATORY | | [...] + | [address] | [address] | [place] | [phone] | | [facility] | | [address] | | | - LABORATORY | | [...] [address] | [place] | [phone] | | [facility] | | [address] | | | - LABORATORY | | [...] | mL/min/1.73m2 | [facility] | | | LIBERIAN | RATE,ESTIMATED | | MEDICAL | | | | mL/min/1.80x3Urzz than | | CENTER - | | [...] [address] | [place] | [phone] | | [facility] | | [address] | | | - LABORATORY | | [...] + | [address] | [address] | [place] | [phone] | | [facility] | | [address] | | | - LABORATORY | | [...] [address] | [place] | [phone] | | [facility] | | [address] | | | - LABORATORY | | [...] [address] | [place] | [phone] | | [facility] | | [address] | | | - LABORATORY | | [...] + | [facility] | [address] | [place] | [phone] | | [facility] | | [address] | | | - LABORATORY | | [...] + | [facility] | [address] | [place] | [phone] | | [facility] | | [address] | | | - LABORATORY | | [...] ST. | [address] | [place], [place] | [phone] | | [facility] | | [address] | | | - LABORATORY | | [...] | 0.87 | 0.60 - 1.30 | [facility] | | | | | mg/dL | [facility] | | | | | | MEDICAL | | | | | | CENTER - | | | | | | LABORATORY | | + + + + + + | eGFR if not | >60Comment: GLOMERULAR | >=60 | [facility] | | | | FILTRATION | mL/min/1.73m2 | [facility] | | | LIBERIAN | RATE,ESTIMATED | | MEDICAL | | | | mL/min/1.59a2Zlqp than | | CENTER - | | [...] [address] | [place] | [phone] | | [facility] | | [address] | | | - LABORATORY | | [...] | | Neutrophils | | | [facility] | | [...] + | [facility] | [address] | [place] | [phone] | | [facility] | | [address] | | | - LABORATORY | | [...] [address] | [place] | [phone] | | [facility] | | [address] | | | - LABORATORY | | [...] [address] | [place] | [phone] | | [facility] | | [address] | | | - LABORATORY | | [...] + | [facility] | [address] | [place] | [phone] | | [facility] | | [address] | | | - LABORATORY | | [...] + | [address] | [address] | [place], [place] | [phone] | | [facility] | | [address] | | | - LABORATORY | | [...] [address] | [place] | [phone] | | [facility] | | [address] | | | - LABORATORY | | [...] ST. | [address] | [place] | [phone] | | [facility] | | [address] | | | - LABORATORY | | [...] [address] | [place] | [phone] | | [facility] | | [address] | | | - LABORATORY | | [...] | 1.04 | 0.60 - 1.30 | [facility] | | | | | mg/dL | [facility] | | | | | | MEDICAL | | | | | | CENTER - | | | | | | LABORATORY | | + + + + + + | eGFR if not | >60Comment: GLOMERULAR | >=60 | [facility] | | | | FILTRATION | mL/min/1.73m2 | [facility] | | | [facility] | RATE,ESTIMATED | | MEDICAL | | | | mL/min/1.08v1Ggyx than | | CENTER - | | [...] + | [facility] | [address] | [place] | [phone] | | [facility] | | [address] | | | - LABORATORY | | [...] ST. | [address] | [place], [place] | [phone] | | [facility] | | [address] | | | - LABORATORY | | [...] [address] | [place] | [phone] | | [facility] | | [address] | | | - LABORATORY | | [...] [address] | [place] | [phone] | | [facility] | | [address] | | | - LABORATORY | | [...] [address] | [place] | [phone] | | [facility] | | [address] | | | - LABORATORY | | [...] [address] | [place] | [phone] | | [facility] | | [address] | | | - LABORATORY | | [...] + | [facility] | [address] | [place] | [phone] | | [facility] | | [address] | | | - LABORATORY | | [...] + | [facility] | [address] | [place] | [phone] | | [facility] | | [address] | | | - [...] + | [address] | [address] | [place] | [phone] | | [facility] | | [address] | | | - LABORATORY | | [...] ST. | [address] | [place] | [phone] | | [facility] | | [address] | | | - LABORATORY | | [...] ST. | [address] | [place] | [phone] | | [facility] | | [address] | | | - LABORATORY | | [...] [address] | [place] | [phone] | | [facility] | | [address] | | | - LABORATORY | | [...] + | [facility] | [address] | [place] | [phone] | | [facility] | | [address] | | | - LABORATORY | | [...] ST. | [address] | [place] | [phone] | | [facility] | | [address] | | | - LABORATORY | | [...] | | | FILTRATION | mL/min/1.73m2 | [facility] | | | LIBERIAN | RATE,ESTIMATED | | MEDICAL | | | | mL/min/1.65v5Ouxo than | | CENTER - | | [...] | | | | | mg/dL | [facility] | | | | | | [...] [address] | [place] | [phone] | | [facility] | | [address] | | | - LABORATORY | | [...] [address] | [place] | [phone] | | [facility] | | [address] | | | - LABORATORY | | [...] + | [facility] | [address] | [place] | [phone] | | [facility] | | [address] | | | - LABORATORY | | | | + + + + + Surgical Pathology Exam (11/21/2017 12:00 AM PDT) + + | Specimen | + + | | + + + + + | Narrative | Performed At | + + + | SPECIMEN(S): A RIGHT 5TH MEATATRSAL SPECIMEN SOURCE: A. RIGHT | [facility] | | 5TH MEATATRSAL CLINICAL HISTORY: 5th metatarsal diabetic | INCYTE | | infection. FINAL PATHOLOGIC DIAGNOSIS: Right 5th metatarsal: - | | | Bone with focal serous fat necrosis with associated acute and | | | chronic inflammation suggestive of osteomyelitis. JVR:[facility]:C2NR | | | MICROSCOPIC EXAMINATION: Histologic [...] decalcified in decal | | | STAT).. am:AMB:[facility] PERFORMING LABORATORY: The technical | | | component was performed by [facility], [address] [place] [address] | | | [facility] [address] (Marble Cutter Operator: Khadra Gill MD; CLIA# | | | [id number]). Professional interpretation was performed by [employer] | | | [facility], [address] | | | [facility] [address] [place] [address] (Marble Cutter Operator: Ambrosio | | | [place]). Diagnostician: Ambrosio Hall MD | | | Pathologist Electronically Signed 11/23/2017 | | + + + + +---------+ + + | Performing | Address | City/State/Zipcode | Phone Number | | Organization | | | | + +---------+ + + | [facility] | | | | | [place] | | | | + +---------+ + [...] [address] | [place] | [phone] | | [facility] | | [address] | | | - LABORATORY | | [...] | | | | | | n [place] | | | | | + +---------+ [...] [address] | [place] | [phone] | | [facility] | | [address] | | | - LABORATORY | | [...] + | Performed at: 01 - [facility] [place] [address], | REFERENCE LAB | | [place], [place] [id number] Excellence Manager: Jurgen Costa MD, Phone: | [facility] | | [phone] | | + + + + + + + + | Performing | Address | City/State/Zipcode | Phone Number | | Organization | | | | + + + + + | REFERENCE LAB | [address] | [place] [address] | [phone] | | [facility] | Drive [...] [address] | [place] | [phone] | | [facility] | | [address] | | | - LABORATORY | | [...] [address] | [place] | [phone] | | [facility] | | [address] | | | - LABORATORY | | [...] + | [facility] | [address] | [place] | [phone] | | [facility] | | [address] | | | - LABORATORY | | [...] [address] | [place] | [phone] | | [facility] | | [address] | | | - LABORATORY | | [...] + | [facility] | [address] | [place] | [phone] | | [facility] | | [address] | | | - LABORATORY | | [...] ST. | [address] | [place] | [phone] | | [facility] | | [address] | | | - LABORATORY | | [...] [address] | [place] | [phone] | | [facility] | | [address] | | | - LABORATORY | | [...] | | | | | | [place] [facility] | | | | | | MEDICAL [...] + | [facility] | [address] | [place] | [phone] | | [facility] | | [address] | | | - LABORATORY | | [...] [address] | [place] | [phone] | | [facility] | | [address] | | | - LABORATORY | | [...] | | | FILTRATION | mL/min/1.73m2 | [facility] | | | LIBERIAN | RATE,ESTIMATED | | MEDICAL | | | | mL/min/1.12w5Wjnw than | | CENTER - | | [...] | | | | | mg/dL | [facility] | | | | | | [...] [address] | [place] | [phone] | | [facility] | | [address] | | | - LABORATORY | | [...] [address] | [place] | [phone] | | [facility] | | [address] | | | - LABORATORY | | [...] + | [address] | [address] | [place] | [phone] | | [facility] | | [address] | | | - LABORATORY | | [...] ST. | [address] | [place] | [phone] | | [facility] | | [address] | | | - LABORATORY | | [...] [address] | [place] | [phone] | | [facility] | | [address] | | | - LABORATORY | | [...] + | [address] | [address] | [place] | [phone] | | [facility] | | [address] | | | - LABORATORY | | [...] + | [facility] | [address] | [place] | [phone] | | [facility] | | [address] | | | - LABORATORY | | [...] [address] | [place] | [phone] | | [facility] | | [address] | | | - LABORATORY | | [...] + | [facility] | [address] | [place] | [phone] | | [facility] | | [address] | | | - LABORATORY | | [...] | | | FILTRATION | mL/min/1.73m2 | [facility] | | | LIBERIAN | RATE,ESTIMATED | | MEDICAL | | | | mL/min/1.05r5Vswn than | | CENTER - | | [...] | | | | | mg/dL | [facility] | | | | | | [...] + + | Performing | Address | City/State/[facility] | Phone Number | | Organization | | | | + + + + + | [facility] [address]. | [address] | [place] | [phone] | | [facility] | | [address] | | | - LABORATORY | | [...] | Basophils | | K/uL | [facility] | | | | | | MEDICAL [...] [address] | [place] | [phone] | | [facility] | | [address] | | | - LABORATORY | | [...] + + | Performing | Address | City/State/[facility] | Phone Number | | Organization [...] | REFERENCE | | | | of [place] [facility] | | LAB [facility] | | | | standards require a | | - [facility] | | | | culture to beperformed | | | | | | on CSF specimens | | | | | | submitted for bacterial | | | | | | antigen testing.(CAP | | | | | | [id number]) Urine | | | | | | specimens will not be | | | | | | cultured. | | | | + + + + + + + + | Specimen | + + | Urine | + + + + + | Narrative | Performed At | + + + | Performed at: 01 - Nikki Jha [address] [facility], | REFERENCE LAB | | [place], [place] [address] Excellence Manager: Christ Deal MD, Phone: | NIKKI MONZON | | [phone] | | + + + + + + + + | Performing | Address | City/State/Zipcode | Phone Number | | Organization | | | | + + + + + | REFERENCE LAB | [address] | [place] [address] | [phone] | | NIKKI - NICOL[address] | Drive [facility] | | | + + + + [...] [address] | [place] | [phone] | | [facility] | | [address] | | | - LABORATORY | | [...] - 1.030 | [facility] | | | [place] | | | [facility] | | [...] | | Urine | | | [facility] | | [...] [address] | [place] | [phone] | | [facility] | | [address] | | | - LABORATORY | | [...] | | | | | | use Marcellus 10/325 if ordered. If | | | [...] scheduled: AC, NPO, Daytime | | | 1120-8118 Use NIGHT DOSE for | | | doses scheduled: HS, 3AM, | | | Nighttime 0004-9460, | | + +---+ | | | [...]
--- OUTSIDE RECORDS SUMMARY | ~2019-03-28 | XMS | Encounter Summary ---
Demographics + + + | Address | [address] | | | [place] [address] | + + + | Home Phone [...] | Organization | [facility] | | | and [place] | + + + | Address | Unknown | + + + | Phone | Unavailable | + + + Support + + + + + | Name | Relationship | Address | Phone | + + + + + | Jessica Shepard | ECON | [address] | | | | | [place] | | | | | [address] | | + + + + + | Bel Solis | ECON | Unknown | | + + + + + | José Shepard | ECON | [place] | | | | | [address] | | + + + + + | Jessica Shepard | ECON | Unknown | | + + + + + Care Team Providers + +------+ + | Care Air Twist Operator Name | Role | Phone | + +------+ + PCP | Unavailable | + +------+ + Encounter Details +--------+ + + + + | Date | Type | Department | Care Team | Description | +--------+ + + + + | 12/08/ | Hospital | [facility] | | | | 1999 | Encounter | MED CTR XRAY [address] | | | | | | [place] | | | | | | [place] [address] | | | | | | [phone] | | | +--------+ + + + [...]
--- OUTSIDE RECORDS SUMMARY | ~2019-03-28 | XMS | Encounter Summary ---
Demographics + + + | Address | [address] | | | [place] [address] | + + + | Home Phone | | + + + | Preferred Language | Unknown | + + + | Marital Status | | + + + | Latter-Day Affiliation | 1076 | + + + | Race | Unknown | + + + | Ethnic Group | Unknown | + + + Author + + + | Author | [facility] | | | and [place] | + + + | Organization | [facility] | | | and [place] | + + + | Address | Unknown | + + + | Phone | Unavailable | + + + Support + + + + + | Name | Relationship | Address | Phone | + + + + + | Jessica Shepard | ECON | [address] | | | | | [place] | | | | | [address] | | + + + + + | Bel Solis | ECON | Unknown | | + + + + + | José Shepard | ECON | [place] | | | | | [address] | | + + + + + | Jessica Shepard | ECON | Unknown | | + + + + + Care Team Providers + +------+ + | Care Manager Club Name | Role | Phone | + +------+ + | Dian Lr NP | PCP | | + +------+ + Encounter Details +--------+ + + + + | Date | Type | Department | Care Team | Description | +--------+ + + + + | 10/16/ | Orders Only | [facility] | Provider, | Other acute | | 2019 | | SYSTEM GENERIC OP | MD [address] | osteomyelitis, right | | | | CONVERSION [address] | [address] | ankle and foot | | | | [address] [place], [place] | [place] [address] | ([facility]) | | | | [address] | | | | | | [phone] | | | +--------+ + + + [...] Other acute osteomyelitis, right ankle and foot ([facility]) | + + documented in this encounter"
--- OUTSIDE RECORDS SUMMARY | ~2019-03-28 | XMS | Clinical Summary ---
Demographics + + + | Address | [address] | | | [place] [address] | + + + | Home Phone | | + + + | Preferred Language | Unknown | + + + | Marital Status | | + + + | Sabianism Affiliation | 1076 | + + + | Race | Unknown | + + + | Ethnic Group | Unknown | + + + Author + + + | Author | [facility] (Historical as of | | | 11-04-18) | + + + | Organization | [facility] (Historical as of | | | [...] Team Providers + +------+ + | Care Materials Scientist Name | Role | Phone | + [...] + + + | Overview: Problem List Personnel Assistant Utility | + + + + + | Acute left hemiparesis (HCC) | 05/14/2016 | + + + | Type 2 diabetes mellitus with hyperglycemia, with long-term | 05/14/2016 | | current use of insulin ([facility]) | | + + + | Ischemic [...] + + | MEDICARE | MEDICA | [id number] | | | [address] | | | RE | | | | [place] [address] | | | IP-OP | | | | | + +--------+ +------+ + + | VET[place] | VETER[employer] | [id number] | | [phone] [employer]EE [employer] [address] | | ADMINISTRATION | [place] | | | [phone] | | | ADMINI | | | | [place] | | | [place] | | | | [address] | | | ON | | | [...] | Self | [birth year] | Home: | [address] | | | al/Fam | | 7 | +- | [place] | | | carlos | | | [address] | [address] | + +--------+ +--------+ + + | SAROJ AMEZQUITA | Vetera | Self | [birth year] | Home: | [address] | | | ns | | 1944 | +- | [place] | | | Admini | | | [address] | [address] | | | strati | | | | | | | on | | | | | + +--------+ +--------+ + +
--- OUTSIDE RECORDS SUMMARY | ~2019-03-28 | XMS | Encounter Summary ---
Demographics + + + | Address | [address] | | | [place] [address] | + + + | Home Phone [...] | Organization | [facility] | | | and [place] | + + + | Address | Unknown | + + + | Phone | Unavailable | + + + Support + + + + + | Name | Relationship | Address | Phone | + + + + + | Jessica Amezquita | ECON | [address] | | | | | [place] | | | | | [address] | | + + + + + | Bel Solis | ECON | Unknown | | + + + + + | José Amezquita | ECON | [place] | | | | | [address] | | + + + + + | Jessica Amezquita | ECON | Unknown | | + + + + + Care Team Providers + +------+ + | Care Data Warehousing Specialist Name | Role | Phone | + +------+ + PCP | Unavailable | + +------+ + Encounter Details +--------+ + + + + | Date | Type | Department | Care Team | Description | +--------+ + + + + | 04/21/ | Hospital | [facility] | Christina Da Silva | | | 2012 | Encounter | MED CTR EMERGENCY | MD [address]shine [address] | | | | | [place] [address] | [facility] | | | | | [place], [place] | [place] [address] | | | | | [address] | [phone] | | | | | [phone] | | | | | | | Cody Goodwin | | | | | | MD Evelia [address] | | | | | | [place], [place] | | | | | | [address] | | | | | | [phone] | | | | | | | [...] Performed At | + + + | [facility] | [place] | | Department [address] [facility] | [facility] | | [ rep [address]] [ rep [facility] | | [facility]] Signed | - IMAGING | | | | | Patient Name: REAGAN AMEZQUITA Physician: | | | BILL. : 1945 Age: 67 Sex: M Unit #: [id number] | | | Exam Date: 04/21/12 Location: ER | | | Report #: [id number] Page: | | | %(RAD)RES..mtdd.print.filter("pg") of %(RAD) | | | RES..mtdd.print.filter("tpg") | | | | | | Accession Number: [id number] | | | ABDOMEN ONE VIEW 04/22/2012 [...] Transcribed Date/Time: | | | 04/22/2012 18:46 Weekend Receptionist: | | | <<Signature on File>> | | | Rico | | | MD Jack04/23/12 0933 <Electronically signed by Rico Santiago MD> | | | Rico Santiago MD 04/22/12 1424 Weekend Receptionist: Abhishek | | | Ndtanehiajatz89/02/13 1846 Cody Goodwin MD | | | | | + + + + + + + + | Performing | Address | City/State/Zipcode | Phone Number | | Organization | | | | + + + + + | [facility] | [address] | [place] | [phone] | | [facility] | | [address] | | | - IMAGING | | | | + + + + + CT Abdomen Pelvis w Contrast (04/22/2012 11:43 AM PST) + + | Specimen | + + | | + + + + + | Narrative | Performed At | + + + | [facility] | [place] | | Department [address] [facility] [place] | [facility] | | [ rep ct street1[address]] [ rep ct [facility] | | st zip] Signed | - IMAGING | | | | | Patient Name: REAGAN AMEZQUITA Jeovany Physician: | | | BILL.[birth year] : 1945 Age: 67 Sex: M Unit #: [id number] | | | Exam Date: 04/21/12 Location: ER | | | Report #: [id number] Page: | | | %(RAD)RES..mtdd.print.filter("pg") of %(RAD) | | | RES..mtdd.print.filter("tpg") | | | | | | Accession Number: [id number] | | | CT SCAN OF THE [...] | | PRELIMINARY REPORT WAS SENT BY [employer] AT 10:02 P.M. ON | | | 04/21/12. Dictated Date/Time: 04/22/2012 11:43 | | | Transcribed Date/Time: 04/22/2012 15:29 Weekend Receptionist: | | | <<Signature on File>> | | | Rico | | | MD Jack04/23/12 0933 <Electronically signed by Rico Santiago MD> | | | Rico Santiago MD 04/22/12 1143 Weekend Receptionist: Abhishek | | | Bbzbcdujxiipz08/02/13 1529 Cody Goodwin MD | | | | | + + + + + + + + | Performing | Address | City/State/Zipcode | Phone Number | | Organization | | | | + + + + + | [facility] | [address] | [place] | [phone] | | [facility] | | [address] | | | - IMAGING | | [...] + | [facility] | [address] | [place] | [phone] | | [facility] | | [address] | | | - LABORATORY | | | | + + + + + | [facility] [facility] | [address] | [place] | | | [facility] | | [address] | | | - LABORATORY | | [...] | | | | | | [facility] | | [...] + | [facility] | [address] | [place] | [phone] | | [facility] | | [address] | | | - LABORATORY | | | | + + + + + | [facility] | [address] | [place] | | | [facility] | | [address] | | | - LABORATORY | | | | + + + + + documented in this encounter Visit Diagnoses Not on filedocumented in this encounter
--- OUTSIDE RECORDS SUMMARY | ~2019-03-28 | XMS | Encounter Summary ---
Demographics + + + | Address | [address] | | | [place] [address] | + + + | Home Phone [...] + | Jessica Shepard | ECON | [address] | | | | | [place] | | | | | [address] | | + + + + + | Bel Solis | ECON | Unknown | | + + + + + | José Shepard | ECON | [place] | | | | | [address] | | + + + + + | Jessica Shepard | ECON | Unknown | | + + + + + Care Team Providers + +------+ + | Care Fur Examiner Name | Role | Phone | + +------+ + | Dian Lr NP | PCP | | + +------+ + Encounter Details +--------+ + + + + | Date | Type | Department | Care Team | Description | +--------+ + + + + | 05/14/ | Hospital | [facility] | Conversion | Pain | | 2017 | Encounter | CONVERSION [address] | Transaction, | | | | | [address] | Provider Unknown | | | | | [place] | [phone] | | | | | [address] | | | | | | [phone] | | | +--------+ + + + [...]
--- OUTSIDE RECORDS SUMMARY | ~2019-03-28 | XMS | Encounter Summary ---
Demographics + + + | Address | [address] | | | [place] [address] | + + + | Home Phone [...] | Organization | [facility] | | | and [place] | + + + | Address | Unknown | + + + | Phone | Unavailable | + + + Support + + + + + | Name | Relationship | Address | Phone | + + + + + | Jessica Shepard | ECON | [address] | | | | | [place] | | | | | [address] | | + + + + + | Bel Solis | ECON | Unknown | | + + + + + | José Shepard | ECON | [place] | | | | | [address] | | + + + + + | Jessica Shepard | ECON | Unknown | | + + + + + Care Team Providers + +------+ + | Care Foundation Maker Name | Role | Phone | + +------+ + PCP | Unavailable | + +------+ + Encounter Details +--------+ + + + + | Date | Type | Department | Care Team | Description | +--------+ + + + + | 04/16/ | Hospital | [facility] | Dian Lr NP | | | 2011 | Encounter | MED CTR XRAY [address] | [address] | | | | | [place] | [place] [address] | | | | | [place] [address] | [phone] | | | | | [phone] | | | +--------+ + + + [...] Performed At | + + + | [facility] Department | [facility] | | [address] [facility] | [facility] | | BONE DENSITY TESTING: [...] Transcribed Date/Time: | | | 04/16/2011 14:14 Threat Monitoring Analyst: VIVEK <Electronically Signed | | | by David Guillermo MD> 04/16/11 1459 | | + + + + + | Procedure Note | + + | Eliel Ornelas Conversion - 04/27/2013 4:38 PM [facility] | | Diagnostic Imaging Department [address] [place] [address] | | BONE DENSITY TESTIN04/16/2011 CLINICAL HISTORY: [...] 13:48 | |Transcribed Date/Time: 04/16/2011 14:14 | |Threat Monitoring Analyst: | |<Electronically Signed by David Guillermo MD> 04/16/11 9993 | + + + +---------+ + + [...]
--- OUTSIDE RECORDS SUMMARY | ~2019-03-28 | XMS | Encounter Summary ---
Demographics + + + | Address | [address] | | | [place] [address] | + + + | Home Phone [...] + | Organization | [facility] | | | and [place] | + + + | Address | Unknown | + + + | Phone | Unavailable | + + + Support + + + + + | Name | Relationship | Address | Phone | + + + + + | Jessica Shepard | ECON | [address] | | | | | [place] | | | | | [address] | | + + + + + | Bel Solis | ECON | Unknown | | + + + + + | José Shepard | ECON | [place] | | | | | [address] | | + + + + + | Jessica Shepard | ECON | Unknown | | + + + + + Care Team Providers + +------+ + | Care Graining Machine Operator Name | Role | Phone | + +------+ + | Dian Lr ENGRAVING PRESS OPERATOR | PCP | | + +------+ + Encounter Details +--------+ + + + + | Date | Type | Department | Care Team | Description | +--------+ + + + + | 11/26/ | Hospital | [facility] | Toby Ortiz | Leonel osteomyelitis | | 2018 | Encounter | MED CTR OP INFUSION | MD [address] | of right foot (HCC) | | | | [address] | [facility] | (Primary Dx) | | | | [place] | [place] [address] | | | | | [address] | [phone] | | | | | [phone] | | | +--------+ + + + [...]
--- OUTSIDE RECORDS SUMMARY | ~2019-03-28 | XMS | Encounter Summary ---
Demographics + + + | Address | [address] | | | [place] [address] | + + + | Home Phone [...] Organization | [facility] | | | and [place] | + + + | Address | Unknown | + + + | Phone | Unavailable | + + + Support + + + + + | Name | Relationship | Address | Phone | + + + + + | Jessica Shepard | ECON | [address] | | | | | [place] | | | | | [address] | | + + + + + | Bel Solis | ECON | Unknown | | + + + + + | José Shepard | ECON | [place] | | | | | [address] | | + + + + + | Jessica Shepard | ECON | Unknown | | + + + + + Care Team Providers + +------+ + | Care Bird Tender Name | Role | Phone | [...] + + | 11/19/ | Hospital | [facility] | Jurgen Casiano | initial | | 2018 - | Encounter | [facility] | MD Shayne [address] | encounter (Primary | | | | [address] [place] | [address] [place] | Dx); Fever, | | 11/25/ | | [place] [address] | [place] [address] | unspecified fever | | 2018 | | [phone] | [phone] | cause; Pneumonia due | | | | | | to infectious | | | | | Gray Perea MD | organism, | | | | | [address] | unspecified | | | | | [place], [place] | laterality, | | | | | [address] | unspecified part of | | | | | | lung; Sepsis, due to | | | | | Mil Sandoval MD | unspecified | | | | | [address] | organism (HCC); | | | | | [place], [place] | Insulin dependent | | | | | [address] | diabetes mellitus | | | | | | ([facility]); Other chronic | | | | | | osteomyelitis of | | | | | | right foot ([facility]); | | | | | | Peripheral vascular | | | | | | disease ([facility]) | +--------+ + + + [...] other anesthesia was used during the case. [facility] lower extremity was then scrubbed, prepped and [...] -PT/OT ordered Code Status: Full Code Disposition: [facility] Discharge Condition: Stable, very deconditioned and weak at baseline Pleasant, no distress RRR, no m/r/g CTA bilaterally Soft, obese, NT Ext WWP, right foot ulcer with deep wound, slight purulent drainage Contact information for after-discharge care Placement Destination [facility] . Specialty: [facility] Facility Contact information: [address] [place] [address] Discharge Medications New Medications Details acetaminophen [...] by: Justin Reyna MD, 11/25/2017 13:01 [facility] documented in this encounter Medications [...] might be different f rom the original. [facility] Hospitalist Progress Note Reagan Shepard [...] pantoprazole Mechanical fall -PT/OT ordered Disposition : [facility] as soon as 11/25 Prophylaxis : [...] as outlined above. Justin Reyna 11/24/2017 18:16 [facility] Sang Duff MD - 11/24/2017 1:59 PM PDTWe are evaluating the patient for further medical rehabilitatio n services. He does not qualify per CMS guidelines for full inpatient rehab . I recommend he be transferred to SNF for further skilled therapies once he is cleared acute ly. Justin Rodriguez MD - 11/23/2017 2:24 PM PDT [facility] Hospitalist Progress Note Reagan Shepard [...] as outlined above. Justin Reyna 11/23/2017 14:24 [facility] ornia, Simone Voss DPM - 11/23/2017 1:58 PM PDT Foot & Ankle Surgery Progress Note Simone Aceves DPM Reagan Shepard Age/Gender 72 y.o. male Location [facility] Attending Mil Sandoval MD [...] Value Units Date/Time Culture, Wound, Smear, w/Anaerobe [[id number]] Collected: 11/21/171207 Order Status: Sent Lab Status: In process Updated: 11/21/17 125 Specimen: Tissue from Toe, Fifth/Small, Right Narrative: The following orders were created for panel order Culture, Wound, Smear, w/Anaerobe. Procedure Abnormality Status --------- ------ Culture, Wound, Smear[[id number]] In process Culture, Anaerobic[[id number]] In process Please view results for these tests on the individual orders. Culture, Wound, Smear [[id number]] Collected: 11/21/171207 Order Status: Sent Lab Status: In process Updated: 11/21/17 125 Specimen: Tissue from Toe, Fifth/Small, Right Culture, Anaerobic [[id number]] Collected: 11/21/171207 Order Status: Sent Lab Status: [...] Simone Aceves DPM 13:58; 11/23/2017 Irasema Dominguez, Planer Operator / Grader - 11/23/2017 9:43 AM PDT PHARMACY SERVICES: [...] strength, and directions X Pharmacy list names: [facility] X [employer] insurance reported information X Care [...] Prior to Admission Sig: Patient taking differently ELECTRICAL TESTER as: Hydrocodone-acetaminophen 10-325 mg Take one tablet by mouth four times daily as needed fo r pain Patient taking 1 tablet three times daily as a scheduled dose Best possible ELECTRICAL TESTER medication list after pharmacy review: PT REPORTED [...] performed and electronically signed by Blanquita Bertrand, Licensed Sales Assistant 11/22/2017 8:38 Electronically signed by: Irasema Moyer, Planer Operator / Grader 11/23/2017 9:43 Justin Rodriguez MD - 11/22/2017 5:22 PM PDT [facility] Hospitalist Progress Note Reagan Shepard [...] as outlined above. Justin Reyna 11/22/2017 17:40 [facility] anielle Guillermo, Plug Paster - 11/22/2017 2:13 PM PDTFormatting of this [...] Diabetes mellitus (HCC); Stroke (cerebrum) ([facility]); an d TBI (traumatic brain injury) ([facility]). No risk factors for MDR [...] Value Units Date/Time Culture, Wound, Smear, w/Anaerobe [[id number]] Collected: 11/21/17 1208 Order Status: Sent Lab Status: In process Updated: 11/21/17 1250 Specimen: Tissue from Toe, Fifth/Small, Right Narrative: The following orders were created for panel order Culture, Wound, Smear, w/Anaerobe. Procedure Abnormality Status --------- ------ Culture, Wound, Smear[[id number]] Preliminary result Culture, Anaerobic[[id number]] In process Please view results for these tests on the individual orders. Culture, Wound, Smear [[id number]] Collected: 11/21/17 1208 Order Status: Completed Lab Status: Preliminary result Updated: 11/22/17 1021 Specimen: Tissue from Toe, Fifth/Small, Right Culture 2+ Lactose Fermenting Gram Negative Bacilli Comment: Identification and susceptibility to follow. Gram Stain Result 2+ White Blood Cells 1+ Epithelial cells 2+ Gram negative rods Culture, Anaerobic [[id number]] Collected: 11/21/17 1208 Order Status: Sent Lab Status: In process Updated: 11/21/17 1250 Specimen: Tissue from Toe, Fifth/Small, Right Respiratory Virus Panel, NAAT [[id number]] Collected: 11/20/17 1257 Order Status: Completed Lab [...] pneumoniae DNA Not Detected Narrative: Performed at: [address] [place] [id number] Corporate Communications Intern: Jurgen Costa MD, Phone: [phone] Culture, Wound, Smear [[id number]] (Susceptibility) Collected: 11/20/17 0825 Order Status: Completed [...] Sulfamethoxazole <=20 ug/mL Sensitive Culture, Wound, Smear [[id number]] (Susceptibility) Collected: 11/19/172030 Order Status: Completed Lab [...] no longer reported. Culture, Respiratory, Lower, Smear [[id number]] Order Status: Sent Lab Status: No result Specimen: Body Fluid from Sputum, Expectorated Culture, Wound, Smear [[id number]] Order Status: Canceled Lab Status: No result Specimen: Tissue from Leg, Left Culture, Blood [[id number]] (Normal) Collected: 11/19/17 1537 Order Status: Completed Lab Status: Preliminary result Updated: 11/20/17 0351 Specimen: Blood from Peripheral Blood Culture No growth: Monitored continually by instrument for 5 days Culture, Blood [[id number]] (Normal) Collected: 11/19/17 1506 Order Status: Completed Lab Status: Preliminary result Updated: 11/20/17 0321 Specimen: Blood from Peripheral Blood Culture No growth: Monitored continually by instrument for 5 days Culture, Urine [[id number]] Collected: 11/19/17 1416 Order Status: Completed Lab [...] Monitoring Protocol Electronically signed by: Danielle Guillermo, Plug Paster 11/22/2017 14:13 Associated attestation - Luther Hampton, PharmD - 11/22/2017 2:26 PM Maylin Gomez 11/22/2017 14:26 Maria De Jesus Contrreas RN - 11/22/2017 10:20 AM PDTVascular access [...] Surgery Progress Note Simone Aceves DPM Reagan hSepard Age/Gender 72 y.o. male Location [facility] Attending Mil Sandoval MD [...] Value Units Date/Time Culture, Wound, Smear, w/Anaerobe [[id number]] Collected: 11/21/17 1208 Order Status: Sent Lab Status: In process Updated: 11/21/17 1250 Specimen: Tissue from Toe, Fifth/Small, Right Narrative: The following orders were created for panel order Culture, Wound, Smear, w/Anaerobe. Procedure Abnormality Status --------- ------ Culture, Wound, Smear[[id number]] In process Culture, Anaerobic[[id number]] In process Please view results for these tests on the individual orders. Culture, Wound, Smear [[id number]] Collected: 11/21/17 1208 Order Status: Sent Lab Status: In process Updated: 11/21/17 1250 Specimen: Tissue from Toe, Fifth/Small, Right Culture, Anaerobic [[id number]] Collected: 11/21/17 1208 Order Status: Sent Lab [...] Diabetes mellitus (HCC); Stroke (cerebrum) ([facility]); an d TBI (traumatic brain injury) ([facility]). . No risk factors for [...] Value Units Date/Time Culture, Wound, Smear, w/Anaerobe [[id number]] Collected: 11/21/17 120 Order Status: Sent Lab Status: In process Updated: 11/21/17 1250 Specimen: Tissue from Toe, Fifth/Small, Right Narrative: The following orders were created for panel order Culture, Wound, Smear, w/Anaerobe. Procedure Abnormality Status --------- ------ Culture, Wound, Smear[[id number]] In process Culture, Anaerobic[[id number]] In process Please view results for these tests on the individual orders. Culture, Wound, Smear [[id number]] Collected: 11/21/17 120 Order Status: Sent Lab Status: In process Updated: 11/21/17 1250 Specimen: Tissue from Toe, Fifth/Small, Right Culture, Anaerobic [[id number]] Collected: 11/21/171207 Order Status: Sent Lab Status: In process Updated: 11/21/17 1250 Specimen: Tissue from Toe, Fifth/Small, Right Respiratory Virus Panel, NAAT [[id number]] Collected: 11/20/17 1257 Order Status: Sent Lab Status: In process Updated: 11/20/17 1302 Specimen: Tissue from Nasopharynx Culture, Wound, Smear [[id number]] Collected: 11/20/17 0825 Order Status: Completed Lab Status: Preliminary result Updated: 11/21/17 0739 Specimen: Tissue from Foot, Right Culture 1+ Gram Negative Jayesh, NOT Pseudomonas Comment: Identification and susceptibility to follow. 1+ Gram Positive Cocci Comment: Isolating for additional information. Gram Stain Result 1+ White Blood Cells No organisms seen Culture, Wound, Smear [[id number]] (Susceptibility) Collected: 11/19/172030 Order Status: Completed Lab [...] <=20 ug/mL Sensitive Culture, Respiratory, Lower, Smear [[id number]] Order Status: Sent Lab Status: No result Specimen: Body Fluid from Sputum, Expectorated Culture, Wound, Smear [[id number]] Order Status: Canceled Lab Status: No result Specimen: Tissue from Leg, Left Culture, Blood [[id number]] (Normal) Collected: 11/19/17 1537 Order Status: Completed Lab Status: Preliminary result Updated: 11/20/17 0351 Specimen: Blood from Peripheral Blood Culture No growth: Monitored continually by instrument for 5 days Culture, Blood [[id number]] (Normal) Collected: 11/19/17 1506 Order Status: Completed Lab Status: Preliminary result Updated: 11/20/17 0321 Specimen: Blood from Peripheral Blood Culture No growth: Monitored continually by instrument for 5 days Culture, Urine [[id number]] Collected: 11/19/17 1416 Order Status: Completed Lab [...] Hoff MD - 11/21/2017 11:05 AM PDT [place] HOSPITALIST PROGRESS NOTE Patient: Reagan Shepard : 1945: Age: 72 y.o. MedRec: [id number] Admission date: 11/19/2017 Hospital day # : [...] 40 mg 40 mg Oral QAM AC Mli Sandoval MD 40 mg at 0 11/21/17 [...] E' Septal Velocity 4.79 cm/s MV Deceleration [place] 336.24 cm/s2 MV Deceleration Time 332.96 msec [...] Value Units Date/Time Respiratory Virus Panel, NAAT [[id number]] Collected: 11/20/17 1257 Order Status: Sent Lab Status: In process Updated: 11/20/17 1302 Specimen: Tissue from Nasopharynx Culture, Wound, Smear [[id number]] Collected: 11/20/17 0825 Order Status: Completed Lab Status: Preliminary result Updated: 11/21/17 0739 Specimen: Tissue from Foot, Right Culture 1+ Gram Negative Jayesh, NOT Pseudomonas Comment: Identification and susceptibility to follow. 1+ Gram Positive Cocci Comment: Isolating for additional information. Gram Stain Result 1+ White Blood Cells No organisms seen Culture, Wound, Smear [[id number]] (Susceptibility) Collected: 11/19/172030 Order Status: Completed Lab [...] + Sulfamethoxazole <=20 ug/mL Sensitive Culture, Blood [[id number]] (Normal) Collected: 11/19/17 1537 Order Status: Completed Lab Status: Preliminary result Updated: 11/20/17 0351 Specimen: Blood from Peripheral Blood Culture No growth: Monitored continually by instrument for 5 days Culture, Blood [[id number]] (Normal) Collected: 11/19/17 1506 Order Status: Completed Lab Status: Preliminary result Updated: 11/20/17 0321 Specimen: Blood from Peripheral Blood Culture No growth: Monitored continually by instrument for 5 days Culture, Urine [[id number]] Collected: 11/19/17 1416 Order Status: Completed Lab [...] Other Pharmacy Consult Nasim Jimenez 11/21/2017 11:05 [facility] Nasim Hoff MD - 11/20/2017 10:04 AM PDT [facility] [place] HOSPITALIST PROGRESS NOTE Patient: Reagan Shepard : 1945: Age: 72 y.o. MedRec: [id number] Admission date: 11/19/2017 Hospital day # : [...] PH UA 5.0 5.0 - 8.0 Specific [place] 1.017 1.001 - 1.030 PROTEIN UA 30 [...] Component Value Units Date/Time Culture, Wound, Smear [[id number]] Collected: 11/20/17 0825 Order Status: Sent Lab Status: In process Updated: 11/20/17 0829 Specimen: Tissue from Foot, Right Culture, Wound, Smear [[id number]] Collected: 11/19/17 203 Order Status: Completed Lab Status: Preliminary result Updated: 11/20/17 09 Specimen: Tissue from Leg, Lower, Right Culture 2+ Gram Negative Jayesh, NOT Pseudomonas Comment: Identification and susceptibility to follow. 1+ Gram Positive Cocci Comment: Isolating for additional information. Gram Stain Result No white blood cells (PMNs) seen 1+ Gram negative rods Culture, Blood [[id number]] (Normal) Collected: 11/19/17 1537 Order Status: Completed Lab Status: Preliminary result Updated: 11/20/17 0351 Specimen: Blood from Peripheral Blood Culture No growth: Monitored continually by instrument for 5 days Culture, Blood [[id number]] (Normal) Collected: 11/19/17 1506 Order Status: Completed Lab Status: Preliminary result Updated: 11/20/17 0321 Specimen: Blood from Peripheral Blood Culture No growth: Monitored continually by instrument for 5 days Culture, Urine [[id number]] (Normal) Collected: 11/19/17 1416 Order Status: Completed [...] Other Pharmacy Consult Nasim Jimenez 11/20/2017 10:05 [facility] Khadra Mac Phar mD - 11/20/2017 9:10 [...] Diabetes mellitus (HCC); Stroke (cerebrum) ([facility]); an d TBI (traumatic brain injury) ([facility]). . No risk factors for [...] Component Value Units Date/Time Culture, Wound, Smear [[id number]] Collected: 11/20/17 0825 Order Status: Sent Lab Status: In process Updated: 11/20/17 08 Specimen: Tissue from Foot, Right Culture, Wound, Smear [[id number]] Collected: 11/19/172030 Order Status: Completed Lab Status: Preliminary result Updated: 11/20/17 09 Specimen: Tissue from Leg, Lower, Right Culture 2+ Gram Negative Jayesh, NOT Pseudomonas Comment: Identification and susceptibility to follow. 1+ Gram Positive Cocci Comment: Isolating for additional information. Gram Stain Result No white blood cells (PMNs) seen 1+ Gram negative rods Culture, Respiratory, Lower, Smear [[id number]] Order Status: Sent Lab Status: No result Specimen: Body Fluid from Sputum, Expectorated Culture, Wound, Smear [[id number]] Order Status: Canceled Lab Status: No result Specimen: Tissue from Leg, Left Culture, Blood [[id number]] (Normal) Collected: 11/19/17 1537 Order Status: Completed Lab Status: Preliminary result Updated: 11/20/17 0351 Specimen: Blood from Peripheral Blood Culture No growth: Monitored continually by instrument for 5 days Culture, Blood [[id number]] (Normal) Collected: 11/19/17 1506 Order Status: Completed Lab Status: Preliminary result Updated: 11/20/17 0321 Specimen: Blood from Peripheral Blood Culture No growth: Monitored continually by instrument for 5 days Culture, Urine [[id number]] (Normal) Collected: 11/19/17 1416 Order Status: Completed [...] d TBI (traumatic brain injury) ([facility]). . No risk factors for [...] Value Units Date/Time Culture, Respiratory, Lower, Smear [[id number]] Order Status: Sent Lab Status: No result Specimen: Body Fluid from Sputum, Expectorated Culture, Wound, Smear [[id number]] Order Status: Sent Lab Status: No result Specimen: Tissue from Leg, Left Culture, Blood [[id number]] Collected: 11/19/17 1537 Order Status: Sent Lab Status: In process Updated: 11/19/17 1543 Specimen: Blood from Peripheral Blood Culture, Blood [[id number]] Collected: 11/19/17 1506 Order Status: Sent Lab Status: In process Updated: 11/19/17 1511 Specimen: Blood from Peripheral Blood Culture, Urine [[id number]] Collected: 11/19/17 1416 Order Status: Sent Lab [...] | | | PDT | ([facility]) | results section. | + [...] K?MRN: | | | | | | [id number] | | | [id number] | | | his | | | [...] | | | ent/06 | | | [id number] | | | -9b07- | | | [...] | | | St. | | | [place] | | | y H. | | [...] | | | St. | | | [place] | | | y | | | [...] + | [facility] | [address] | [place] | [phone] | | [facility] | | [address] | | | - LABORATORY | | [...] [address] | [place] | [phone] | | [facility] | | [address] | | | - LABORATORY | | [...] + | [facility] | [address] | [place] | [phone] | | [facility] | | [address] | | | - LABORATORY | | [...] | mL/min/1.73m2 | [facility] | | | [place] | RATE,ESTIMATED | | MEDICAL | | | | mL/min/1.97q5Zjmb than | | CENTER - | | [...] [address] | [place] | [phone] | | [facility] | | [address] | | | - LABORATORY | | [...] ST. | [address] | [place] | [phone] | | [facility] | | [address] | | | - LABORATORY | | [...] | | POC | | | STMariana [facility] | | | | | | [...] [address] | [place] | [phone] | | [facility] | | [address] | | | - LABORATORY | | [...] | | POC | | | Mariana [facility] | | | | | | [...] + | [facility] | [address] | [place] | [phone] | | [facility] | | [address] | | | - LABORATORY | | [...] [address] | [place] | [phone] | | [facility] | | [address] | | | - LABORATORY | | [...] + | [facility] | [address] | [place] | [phone] | | [facility] | | [address] | | | - LABORATORY | | [...] 16 | 7 - 18 mg/dL | [facility] | | | | | | [facility] | | | | | | MEDICAL | | | | | | CENTER - | | | | | | LABORATORY | | + + + + + + | Creatinine | 0.91 | 0.60 - 1.30 | [facility] | | | | | mg/dL | [facility] | | | | | | MEDICAL | | | | | | CENTER - | | | | | | LABORATORY | | + + + + + + | eGFR if not | >60Comment: GLOMERULAR | >=60 | [facility] | | | | FILTRATION | mL/min/1.73m2 | [facility] | | | [place] | RATE,ESTIMATED | | MEDICAL | | | | mL/min/1.54k7Apgw than | | CENTER - | | [...] [address] | [place] | [phone] | | [facility] | | [address] | | | - LABORATORY | | [...] [address] | [place] | [phone] | | [facility] | | [address] | | | - LABORATORY | | [...] [address] | [place] | [phone] | | [facility] | | [address] | | | - LABORATORY | | [...] + | [facility] | [address] | [place] | [phone] | | [facility] | | [address] | | | - LABORATORY | | [...] [address] | [place] | [phone] | | [facility] | | [address] | | | - LABORATORY | | [...] [address] | [place] | [phone] | | [facility] | | [address] | | | - LABORATORY | | [...] + | [facility] | [address] | [place] | [phone] | | [facility] | | [address] | | | - LABORATORY | | [...] mL/min/1.73m2 | [facility] | | | [place] | RATE,ESTIMATED | | MEDICAL | | | | mL/min/1.25s6Mewj than | | CENTER - | | [...] [address] | [place] | [phone] | | [facility] | | [address] | | | - LABORATORY | | [...] | Basophils | | K/uL | STMariana [facility] | | | | | | [...] [address] | [place] | [phone] | | [facility] | | [address] | | | - LABORATORY | | [...] [address] | [place] | [phone] | | [facility] | | [address] | | | - LABORATORY | | [...] [address] | [place] | [phone] | | [facility] | | [address] | | | - LABORATORY | | [...] ST. | [address] | [place] | [phone] | | [facility] | | [address] | | | - LABORATORY | | [...] [address] | [place] | [phone] | | [facility] | | [address] | | | - LABORATORY | | [...] [address] | [place] | [phone] | | [facility] | | [address] | | | - LABORATORY | | [...] + | [facility] | [address] | [place] | [phone] | | [facility] | | [address] | | | - LABORATORY | | [...] [address] | [place] | [phone] | | [facility] | | [address] | | | - LABORATORY | | [...] | | | | mg/dL | [facility] | | | | | | MEDICAL | | | | | | CENTER - | | | | | | LABORATORY | | + + + + + + | eGFR if not | >60Comment: GLOMERULAR | >=60 | [facility] | | | | FILTRATION | mL/min/1.73m2 | [facility] | | | [place] | RATE,ESTIMATED | | MEDICAL | | | | mL/min/1.75v9Scsm than | | CENTER - | | [...] [address] | [place] | [phone] | | [facility] | | [address] | | | - LABORATORY | | [...] + | [facility] | [address] | [place] | [phone] | | [facility] | | [address] | | | - LABORATORY | | [...] [address] | [place] | [phone] | | [facility] | | [address] | | | - LABORATORY | | [...] | | | POC | | | [facility] | | | | | [...] [address] | [place] | [phone] | | [facility] | | [address] | | | - LABORATORY | | [...] [address] | [place] | [phone] | | [facility] | | [address] | | | - LABORATORY | | [...] | | | aerogenesComment: | | [facility] | | | | Consider combination [...] + | [facility] | [address] | [place] | [phone] | | [facility] | | [address] | | | - LABORATORY | | [...] [address] | [place] | [phone] | | [facility] | | [address] | | | - LABORATORY | | [...] [address] | [place] | [phone] | | [facility] | | [address] | | | - LABORATORY | | [...] + | No immature cells seen | [facility] | | | [facility] | | | [facility] | | | - LABORATORY | + + + + + + + + | Performing | Address | City/State/Zipcode | Phone Number | | Organization | | | | + + + + + | [facility] | [address] | [place] | [phone] | | [facility] | | [address] | | | - LABORATORY | | [...] [address] | [place] | [phone] | | [facility] | | [address] | | | - LABORATORY | | [...] + | [facility] | [address] | [place] | [phone] | | [facility] | | [address] | | | - LABORATORY | | [...] [address] | [place] | [phone] | | [facility] | | [address] | | | - LABORATORY | | [...] [address] | [place] | [phone] | | [facility] | | [address] | | | - LABORATORY | | [...] + | [facility] [facility] | [address] | [place] | [phone] | | [facility] | | [address] | | | - LABORATORY | | [...] | | | | | mmol/L | [facility] | | | | | [...] | mL/min/1.73m2 | [facility] | | | [place] | RATE,ESTIMATED | | MEDICAL | | | | mL/min/1.87w7Grnb than | | CENTER - | | [...] ST. | [address] | [place], [place] | [phone] | | [facility] | | [address] | | | - LABORATORY | | [...] + | [facility] | [address] | [place] | [phone] | | [facility] | | [address] | | | - LABORATORY | | [...] ST. | [address] | [place], [place] | [phone] | | [facility] | | [address] | | | - LABORATORY | | | | + + + + + Surgical Pathology Exam (11/21/2017 12:00 AM PDT) + + | Specimen | + + | | + + + + + | Narrative | Performed At | + + + | SPECIMEN(S): A RIGHT 5TH MEATATRSAL SPECIMEN SOURCE: A. RIGHT [facility] | | 5TH MEATATRSAL CLINICAL HISTORY: 5th metatarsal diabetic | INCYTE | | infection. FINAL PATHOLOGIC DIAGNOSIS: Right 5th metatarsal: - | | | Bone with focal serous fat necrosis with associated acute and | | | chronic inflammation suggestive of osteomyelitis. JVR:[facility]:C2NR | | | MICROSCOPIC EXAMINATION: Histologic sections [...] decal | | | STAT).. am:AMB:[facility] PERFORMING LABORATORY: The technical | | | component was performed by [email or web address] [facility] [employer], [address] [place] [address], | | | [facility] [address] (Telecom Analyst: Khadra Gill MD; CLIA# | | | [id number]). Professional interpretation was performed by [facility] | | | [facility], [address] | | | [address] [place] [address] (Telecom Analyst: Ambrosio | | | [place]). Diagnostician: [...] | | | POC | | | [facility] | | | | | [...] [address] | [place] | [phone] | | [facility] | | [address] | | | - LABORATORY | | [...] | | | | | | n [place] | | | | | + +---------+ [...] | | POC | | | STMariana LEY | | | | | | [...] | + + + + + | [facility] | [address] | [place] | [phone] | | [facility] | | [address] | | | - LABORATORY | | [...] + | Performed at: 01 - [facility] [place] [address], | REFERENCE LAB | | [place], [place] [id number] Corporate Communications Intern: Jurgen Costa MD, Phone: | NIKKI MONZON | | [phone] | | + + + + + + + + | Performing | Address | City/State/Zipcode | Phone Number | | Organization | | | | + + + + + | REFERENCE LAB | [address] | [place] [address] | [phone] | | [facility] | Drive [...] + | [facility] | [address] | [place] | [phone] | | [facility] | | [address] | | | [...] [address] | [place] | [phone] | | [facility] | | [address] | | | - LABORATORY | | [...] [address] | [place] | [phone] | | [facility] | | [address] | | | - LABORATORY | | [...] [address] | [place] | [phone] | | [facility] | | [address] | | | - LABORATORY | | [...] [address] | [place] | [phone] | | [facility] | | [address] | | | - LABORATORY | | [...] + | [facility] | [address] | [place] | [phone] | | [facility] | | [address] | | | - LABORATORY | | [...] [address] | [place] | [phone] | | [facility] | | [address] | | | - LABORATORY | | [...] [address] | [place] | [phone] | | [facility] | | [address] | | | - LABORATORY | | [...] [address] | [place] | [phone] | | [facility] | | [address] | | | - LABORATORY | | [...] 15 | 7 - 18 mg/dL | [facility] | | | | | | ST. [...] mL/min/1.73m2 | [facility] | | | [place] | RATE,ESTIMATED | | MEDICAL | | | | mL/min/1.57s2Zxfz than | | CENTER - | | [...] + | [facility] | [address] | [place] | [phone] | | [facility] | | [address] | | | - LABORATORY | | [...] | | POC | | | STMariana [facility] | | | | | | [...] [address] | [place] | [phone] | | [facility] | | [address] | | | - LABORATORY | | [...] + | [facility] | [address] | [place] | [phone] | | [facility] | | [address] | | | - LABORATORY | | [...] | | | | aerogenesComment: | | [facility] | | | | Consider [...] [address] | [place] | [phone] | | [facility] | | [address] | | | - LABORATORY | | [...] | | | POC | | | [facility] | | | | [...] + | [facility] | [address] | [place] | [phone] | | [facility] | | [address] | | | - LABORATORY | | [...] [address] | [place] | [phone] | | [facility] | | [address] | | | - LABORATORY | | [...] [address] | [place] | [phone] | | [facility] | | [address] | | | - LABORATORY | | [...] [address] | [place] | [phone] | | [facility] | | [address] | | | - LABORATORY | | [...] [address] | [place] | [phone] | | [facility] | | [address] | | | - LABORATORY | | [...] 16 | 7 - 18 mg/dL | [facility] | | | | | | [facility] | | | | | | MEDICAL | | | | | | CENTER - | | | | | | LABORATORY | | + + + + + + | Creatinine | 0.76 | 0.60 - 1.30 | [place] | | | | | mg/dL | [facility] | | | | | | MEDICAL | | | | | | CENTER - | | | | | | LABORATORY | | + + + + + + | eGFR if not | >60Comment: GLOMERULAR | >=60 | [place] | | | | FILTRATION | mL/min/1.73m2 | [facility] | | | [place] | RATE,ESTIMATED | | MEDICAL | | | | mL/min/1.47q6Qtbt than | | CENTER - | | [...] + | [facility] | [address] | [place] | [phone] | | [facility] | | [address] | | | - LABORATORY | | [...] + | [facility] | [address] | [place] | [phone] | | [facility] | | [address] | | | - LABORATORY | | [...] | REFERENCE | | | | of [facility] | | LAB [facility] | | | | standards require a | | - [facility] | | | | culture to beperformed | | | | | | on CSF specimens | | | | | | submitted for bacterial | | | | | | antigen testing.(CAP | | | | | | [id number]) Urine | | | | | | [...] Ye Carranza, | REFERENCE LAB | | [place], [place] [id number] Corporate Communications Intern: Christ Deal MD, Phone: | NIKKI - NICOLÁS | | [phone] | | + + + + + + + + | Performing | Address | City/State/Zipcode | Phone Number | | Organization | | | | + + + + + | REFERENCE LAB | [address] | [place] [address] | [phone] | | [facility] | Drive [...] + | [address] | [address] | [place], [place] | [phone] | | [facility] | | [address] | | | - LABORATORY | | [...] - 1.030 | [facility] | | | [place] | | | [facility] | | [...] [address] | [place] | [phone] | | [facility] | | [address] | | | - LABORATORY | | [...] | | | | | | use [place] 10/325 if ordered. If | | | [...] | | | last modification) on [facility] 11/24/17 | | | | | [...] | | | | | | | 9982-2205 Use NIGHT DOSE for | | | | | | | doses scheduled: HS, 3AM, | | | | | | | Nighttime 8625-3679, | | | | | | + [...] scheduled: AC, NPO, Daytime | | | 4903-2303 Use NIGHT DOSE for | | | doses scheduled: HS, 3AM, | | | Nighttime 6414-8711, | | + +---+ | | | [...] | | | | | | | 2363-1608 Use NIGHT DOSE for | | | | | | | doses scheduled: HS, 3AM, | | | | | | | Nighttime 3668-4711, | | | | | | + [...] | | | | Subcutaneous, ONCE, [facility] 11/24/17 at | | | | [...]
--- OUTSIDE RECORDS SUMMARY | ~2019-03-28 | XMS | Encounter Summary ---
Demographics + + + | Address | [address] | | | [place] [address] | + + + | Home Phone [...] Organization | [facility] | | | and [place] | + + + | Address | Unknown | + + + | Phone | Unavailable | + + + Support + + + + + | Name | Relationship | Address | Phone | + + + + + | Jessica Shepard | ECON | [address] | | | | | [place] | | | | | [address] | | + + + + + | Bel Solis | ECON | Unknown | | + + + + + | José Shepard | ECON | [place] | | | | | [address] | | + + + + + | Jessica Shepard | ECON | Unknown | | + + + + + Care Team Providers + +------+ + | Care Arch Cushion Skiving Machine Operator Name | Role | Phone | + +------+ + | Dian Lr NP | PCP | | + +------+ + Encounter Details +--------+ + + + + | Date | Type | Department | Care Team | Description | +--------+ + + + + | 05/14/ | Hospital | [facility] GENER[facility] IP | Conversion | Pain | | 2017 | Encounter | CONVERSION [address] | Transaction, | | | | | [address] | Provider Unknown | | | | | [place] | [phone] | | | | | [address] | | | | | | [phone] | | | +--------+ + + + [...]
--- OUTSIDE RECORDS SUMMARY | ~2019-03-28 | XMS | Encounter Summary ---
Demographics + + + | Address | [address] | | | [place] [address] | + + + | Home Phone [...] + | Author | [facility] | | | and [place] | + + + | Organization | [facility] | | | and [place] | + + + | Address | Unknown | + + + | Phone | Unavailable | + + + Support + + + + + | Name | Relationship | Address | Phone | + + + + + | Jessica Shepard | ECON | [address] | | | | | [place] | | | | | [address] | | + + + + + | Bel Solis | ECON | Unknown | | + + + + + | José Shepard | ECON | [place] | | | | | [address] | | + + + + + | Jessica Shepard | ECON | Unknown | | + + + + + Care Team Providers + +------+ + | Care Skip Loader Name | Role | Phone | + +------+ + | Dian Lr NP | PCP | | + +------+ + Encounter Details +--------+ + + + + | Date | Type | Department | Care Team | Description | +--------+ + + + + | 07/31/ | Orders Only | [facility] | Conversion | | | 2019 | | INFECTIOUS DISEASE | Transaction, | | | | | [address] | Provider Unknown | | | | | [place] | [phone] | | | | | [address] | | | | | | [phone] | | | +--------+ + + + [...]
--- OUTSIDE RECORDS SUMMARY | ~2019-03-28 | XMS | Encounter Summary ---
Demographics + + + | Address | [address] | | | [place] [address] | + + + | Home Phone | | + + + | Preferred Language | Unknown | + + + | Marital Status | | + + + | Hoahaoism Affiliation | 1076 | + + + | Race | Unknown | + + + | Ethnic Group | Unknown | + + + Author + + + | Author | [facility] | | | and [place] | + + + | Organization | [facility] | | | and [place] | + + + | Address | Unknown | + + + | Phone | Unavailable | + + + Support + + + + + | Name | Relationship | Address | Phone | + + + + + | Jessica Shepard | ECON | [address] | | | | | [place] | | | | | [address] | | + + + + + | Bel Solis | ECON | Unknown | | + + + + + | José Shepard | ECON | [place] | | | | | [address] | | + + + + + | Jessica Shepard | ECON | Unknown | | + + + + + Care Team Providers + +------+ + | Care Drop Hammer Pile Driver Operator Name | Role | Phone | + +------+ + | Dian Lr NP | PCP | | + +------+ + Encounter Details +--------+ + + + + | Date | Type | Department | Care Team | Description | +--------+ + + + + | 10/16/ | Orders Only | [facility] | Provider, | Other acute | | 2019 | | SYSTEM GENERIC OP | [address] | osteomyelitis, right | | | | CON[address] | [address] | ankle and foot | | | | [address] [place], [place] | [place] [address] | ([facility]) | | | | [address] | | | | | | [phone] | | | +--------+ + + + [...] Other acute osteomyelitis, right ankle and foot ([facility]) | + + documented in this encounter"
--- OUTSIDE RECORDS SUMMARY | ~2019-03-28 | XMS | Encounter Summary ---
Demographics + + + | Address | [address] | | | [place] [address] | + + + | Home Phone [...] Organization | [facility] | | | and [place] | + + + | Address | Unknown | + + + | Phone | Unavailable | + + + Support + + + + + | Name | Relationship | Address | Phone | + + + + + | Jessica Shepard | ECON | [address] | | | | | [place] | | | | | [address] | | + + + + + | Bel Solis | ECON | Unknown | | + + + + + | José Shepard | ECON | [place] | | | | | [address] | | + + + + + | Jessica Shepard | ECON | Unknown | | + + + + + Care Team Providers + +------+ + | Care Rewrite Editor Name | Role | Phone | + +------+ + | Dian Lr NP | PCP | | + +------+ + Encounter Details +--------+ + + + + | Date | Type | Department | Care Team | Description | +--------+ + + + + | 11/24/ | Telephone | [facility] | [address]da [address] | | | 2017 | | MED CTR ACUTE | | | | | | PHYSICAL THERAPY | | | | | | [address] | | | | | | [place] [address] | | | | | | [phone] | | | +--------+ + + + [...]
--- OUTSIDE RECORDS SUMMARY | ~2019-03-28 | XMS | Encounter Summary ---
Demographics + + + | Address | [address] | | | [place] [address] | + + + | Home Phone [...] | Organization | [facility] | | | and [place] | + + + | Address | Unknown | + + + | Phone | Unavailable | + + + Support + + + + + | Name | Relationship | Address | Phone | + + + + + | Jessica Shepard | ECON | [address] | | | | | [place] | | | | | [address] | | + + + + + | Bel Solis | ECON | Unknown | | + + + + + | José Shepard | ECON | [place] | | | | | [address] | | + + + + + | Jessica Shepard | ECON | Unknown | | + + + + + Care Team Providers + +------+ + | Care Insurance Verification Clerk Name | Role | Phone | + +------+ + | Dian Lr NP | PCP | | + +------+ + Encounter Details +--------+ + + + + | Date | Type | Department | Care Team | Description | +--------+ + + + + | 05/14/ | Hospital | [facility] GENER[facility] IP | Conversion | Pain | | 2017 | Encounter | CONVERSION [address] | Transaction, | | | | | [address] | Provider Unknown | | | | | [place] | [phone] | | | | | [address] | | | | | | [phone] | | | +--------+ + + + [...]
--- OUTSIDE RECORDS SUMMARY | ~2019-03-28 | XMS | Encounter Summary ---
Demographics + + + | Address | [address] | | | [place] [address] | + + + | Home Phone [...] Organization | [facility] | | | and [place] | + + + | Address | Unknown | + + + | Phone | Unavailable | + + + Support + + + + + | Name | Relationship | Address | Phone | + + + + + | Jessica Shepard | ECON | [address] | | | | | [place] | | | | | [address] | | + + + + + | Bel Solis | ECON | Unknown | | + + + + + | José Shepard | ECON | [place] | | | | | [address] | | + + + + + | Jessica Shepard | ECON | Unknown | | + + + + + Care Team Providers + +------+ + | Care Quenching Car Operator Name | Role | Phone | + +------+ + | Dian Lr NP | PCP | | + +------+ + Encounter Details +--------+ + + + + | Date | Type | Department | Care Team | Description | +--------+ + + + + | 11/24/ | Telephone | [facility] | [address] | | | 2017 | | MED CTR ACUTE | | | | | | PHYSICAL THERAPY | | | | | | [address] | | | | | | [place] [address] | | | | | | [phone] | | | +--------+ + + + [...]
--- OUTSIDE RECORDS SUMMARY | ~2019-03-28 | XMS | Encounter Summary ---
Demographics + + + | Address | [address] | | | [place] [address] | + + + | Home Phone | | + + + | Preferred Language | Unknown | + + + | Marital Status | | + + + | Sikh Affiliation | 1076 | + + + | Race | Unknown | + + + | Ethnic Group | Unknown | + + + Author + + + | Author | [facility] | | | and [place] | + + + | Organization | [facility] | | | and [place] | + + + | Address | Unknown | + + + | Phone | Unavailable | + + + Support + + + + + | Name | Relationship | Address | Phone | + + + + + | Jessica Shepard | ECON | [address] | | | | | [place] | | | | | [address] | | + + + + + | Bel Solis | ECON | Unknown | | + + + + + | José Shepard | ECON | [place] | | | | | [address] | | + + + + + | Jessica Shepard | ECON | Unknown | | + + + + + Care Team Providers + +------+ + | Care Safety Manager Name | Role | Phone | + +------+ + PCP | Unavailable | + +------+ + Encounter Details +--------+ + + + + | Date | Type | Department | Care Team | Description | +--------+ + + + + | 12/27/ | Hospital | [facility] | | | | 2006 | Encounter | MED CTR XRAY [address] | | | [address] | | | | | | [place] [address] | | | | | | [phone] | | | +--------+ + + + [...]
--- OUTSIDE RECORDS SUMMARY | ~2019-03-28 | XMS | Encounter Summary ---
Demographics + + + | Address | [address] | | | [place] [address] | + + + | Home Phone [...] | Organization | [facility] | | | and [place] | + + + | Address | Unknown | + + + | Phone | Unavailable | + + + Support + + + + + | Name | Relationship | Address | Phone | + + + + + | Jessica Shepard | ECON | [address] | | | | | [place] | | | | | [address] | | + + + + + | Bel Solis | ECON | Unknown | | + + + + + | José Shepard | ECON | [place] | | | | | [address] | | + + + + + | Jessica Shepard | ECON | Unknown | | + + + + + Care Team Providers + +------+ + | Care Fur Repairer Name | Role | Phone | [...] Metatarsal | | | | [address] | [place] | | | | | [place] | [address] | | | | | [address] | [phone] | | | | | [phone] | | | +--------+---------+ + + + [...] other anesthesia was used during the case. [facility] t lower extremity was then scrubbed, prepped [...] -PT/OT ordered Code Status: Full Code Disposition: [facility] Discharge Condition: Stable, very deconditioned and weak at baseline Pleasant, no distress RRR, no m/r/g CTA bilaterally Soft, obese, NT Ext WWP, right foot ulcer with deep wound, slight purulent drainage Contact information for after-discharge care Placement Destination [facility] . Specialty: Shelter Facility Contact information: [address] [place] [address] Discharge Medications New [...] signed by: Justin Reyna MD, 11/25/2017 13:01 [facility] documented in this encounter Medications [...] might be different f rom the original. [facility] PMG Hospitalist Progress Note Reagan Shepard [...] pantoprazole Mechanical fall -PT/OT ordered Disposition : [facility] as soon as 11/25 Prophylaxis : heparin [...] as outlined above. Justin Reyna 11/24/2017 18:16 [facility] Sang Duff MD - 11/24/2017 1:59 PM PDTWe are evaluating the patient for further medical rehabilitatio n services. He does not qualify per [facility] guidelines for full inpatient rehab . I recommend he be transferred to SNF for further skilled therapies once he is cleared acute ly. Justin Rodriguez MD - 11/23/2017 2:24 PM PDT [facility] PMG Hospitalist Progress Note Reagan Shepard [...] as outlined above. Justin Reyna 11/23/2017 14:24 [facility] Simone Roth DPM - 11/23/2017 1:58 PM PDT Foot & Ankle Surgery Progress Note Simone Shepard Age/Gender 72 y.o. male Location [facility] MEDICAL Attending Karuna-Hwa Lori, MD Hosp [...] Value Units Date/Time Culture, Wound, Smear, w/Anaerobe [[id number]] Collected: 11/21/171207 Order Status: Sent Lab Status: In process Updated: 11/21/171249 Specimen: Tissue from Toe, Fifth/Small, Right Narrative: The following orders were created for panel order Culture, Wound, Smear, w/Anaerobe. Procedure Abnormality Status --------- ------ Culture, Wound, Smear[[id number]] In process Culture, Anaerobic[[id number]] In process Please view results for these tests on the individual orders. Culture, Wound, Smear [[id number]] Collected: 11/21/171207 Order Status: Sent Lab Status: In process Updated: 11/21/171249 Specimen: Tissue from Toe, Fifth/Small, Right Culture, Anaerobic [[id number]] Collected: 11/21/171207 Order Status: Sent Lab Status: [...] Simone Aceves DPM 13:58; 11/23/2017 Irasema Dominguez, Shed Boss - 11/23/2017 9:43 AM PDT PHARMACY SERVICES: [...] [facility] information X Care Everywhere X [...] Prior to Admission Sig: Patient taking differently SHOE DYER as: Hydrocodone-acetaminophen 10-325 mg Take one tablet by mouth four times daily as needed fo r pain Patient taking 1 tablet three times daily as a scheduled dose Best possible SHOE DYER medication list after pharmacy review: PT REPORTED [...] performed and electronically signed by Blanquita Bertrand, Squirrel Man 11/22/2017 8:38 Electronically signed by: Irasema Moyer, Shed Boss 11/23/2017 9:43 Justin Rodriguez MD - 11/22/2017 5:22 PM PDT [facility] PMG Hospitalist Progress Note Reagan Shepard [...] as outlined above. Justin Reyna 11/22/2017 17:40 [facility] Danielle Claire, Border Patrol Agent - 11/22/2017 2:13 PM PDTFormatting of this [...] hemisphere; Diabetes mellitus (HCC); Stroke (cerebrum) ([facility]); an d TBI (traumatic brain injury) ([facility]). No risk factors for MDR [...] Value Units Date/Time Culture, Wound, Smear, w/Anaerobe [[id number]] Collected: 11/21/171207 Order Status: Sent Lab Status: In process Updated: 11/21/17 1250 Specimen: Tissue from Toe, Fifth/Small, Right Narrative: The following orders were created for panel order Culture, Wound, Smear, w/Anaerobe. Procedure Abnormality Status --------- ------ Culture, Wound, Smear[[id number]] Preliminary result Culture, Anaerobic[[id number]] In process Please view results for these tests on the individual orders. Culture, Wound, Smear [[id number]] Collected: 11/21/171207 Order Status: Completed Lab Status: Preliminary result Updated: 11/22/17 1021 Specimen: Tissue from Toe, Fifth/Small, Right Culture 2+ Lactose Fermenting Gram Negative Bacilli Comment: Identification and susceptibility to follow. Gram Stain Result 2+ White Blood Cells 1+ Epithelial cells 2+ Gram negative rods Culture, Anaerobic [[id number]] Collected: 11/21/17 120 Order Status: Sent Lab Status: In process Updated: 11/21/17 1250 Specimen: Tissue from Toe, Fifth/Small, Right Respiratory Virus Panel, NAAT [[id number]] Collected: 11/20/17 1257 Order Status: Completed Lab [...] pneumoniae DNA Not Detected Narrative: Performed at: [address] [place] [id number] Methodologist: Jurgen Costa MD, Phone: [phone] Culture, Wound, Smear [[id number]] (Susceptibility) Collected: 11/20/17 0825 Order Status: Completed [...] Sulfamethoxazole <=20 ug/mL Sensitive Culture, Wound, Smear [[id number]] (Susceptibility) Collected: 11/19/17 2031 Order Status: Completed [...] no longer reported. Culture, Respiratory, Lower, Smear [[id number]] Order Status: Sent Lab Status: No result Specimen: Body Fluid from Sputum, Expectorated Culture, Wound, Smear [[id number]] Order Status: Canceled Lab Status: No result Specimen: Tissue from Leg, Left Culture, Blood [[id number]] (Normal) Collected: 11/19/17 1537 Order Status: Completed Lab Status: Preliminary result Updated: 11/20/17 0351 Specimen: Blood from Peripheral Blood Culture No growth: Monitored continually by instrument for 5 days Culture, Blood [[id number]] (Normal) Collected: 11/19/17 1506 Order Status: Completed Lab Status: Preliminary result Updated: 11/20/17 0321 Specimen: Blood from Peripheral Blood Culture No growth: Monitored continually by instrument for 5 days Culture, Urine [[id number]] Collected: 11/19/17 1416 Order Status: Completed Lab [...] Monitoring Protocol Electronically signed by: Danielle Guillermo, Border Patrol Agent 11/22/2017 14:13 Associated attestation - Luther Hampton [...] Value Units Date/Time Culture, Wound, Smear, w/Anaerobe [[id number]] Collected: 11/21/171207 Order Status: Sent Lab Status: In process Updated: 11/21/17 125 Specimen: Tissue from Toe, Fifth/Small, Right Narrative: The following orders were created for panel order Culture, Wound, Smear, w/Anaerobe. Procedure Abnormality Status --------- ------ Culture, Wound, Smear[[id number]] In process Culture, Anaerobic[[id number]] In process Please view results for these tests on the individual orders. Culture, Wound, Smear [[id number]] Collected: 11/21/171207 Order Status: Sent Lab Status: In process Updated: 11/21/17 125 Specimen: Tissue from Toe, Fifth/Small, Right Culture, Anaerobic [[id number]] Collected: 11/21/171207 Order Status: Sent Lab Status: [...] hemisphere; Diabetes mellitus (HCC); Stroke (cerebrum) ([facility]); an d TBI (traumatic brain injury) ([facility]). . No risk factors for [...] Value Units Date/Time Culture, Wound, Smear, w/Anaerobe [[id number]] Collected: 11/21/17 1208 Order Status: Sent Lab Status: In process Updated: 11/21/17 1250 Specimen: Tissue from Toe, Fifth/Small, Right Narrative: The following orders were created for panel order Culture, Wound, Smear, w/Anaerobe. Procedure Abnormality Status --------- ------ Culture, Wound, Smear[[id number]] In process Culture, Anaerobic[[id number]] In process Please view results for these tests on the individual orders. Culture, Wound, Smear [[id number]] Collected: 11/21/17 1208 Order Status: Sent Lab Status: In process Updated: 11/21/17 1250 Specimen: Tissue from Toe, Fifth/Small, Right Culture, Anaerobic [[id number]] Collected: 11/21/17 1208 Order Status: Sent Lab Status: In process Updated: 11/21/17 1250 Specimen: Tissue from Toe, Fifth/Small, Right Respiratory Virus Panel, NAAT [[id number]] Collected: 11/20/17 1257 Order Status: Sent Lab Status: In process Updated: 11/20/17 1302 Specimen: Tissue from Nasopharynx Culture, Wound, Smear [[id number]] Collected: 11/20/17 0825 Order Status: Completed Lab Status: Preliminary result Updated: 11/21/17 0739 Specimen: Tissue from Foot, Right Culture 1+ Gram Negative Jayesh, NOT Pseudomonas Comment: Identification and susceptibility to follow. 1+ Gram Positive Cocci Comment: Isolating for additional information. Gram Stain Result 1+ White Blood Cells No organisms seen Culture, Wound, Smear [[id number]] (Susceptibility) Collected: 11/19/172030 Order Status: Completed Lab [...] <=20 ug/mL Sensitive Culture, Respiratory, Lower, Smear [[id number]] Order Status: Sent Lab Status: No result Specimen: Body Fluid from Sputum, Expectorated Culture, Wound, Smear [[id number]] Order Status: Canceled Lab Status: No result Specimen: Tissue from Leg, Left Culture, Blood [[id number]] (Normal) Collected: 11/19/17 1537 Order Status: Completed Lab Status: Preliminary result Updated: 11/20/17 0351 Specimen: Blood from Peripheral Blood Culture No growth: Monitored continually by instrument for 5 days Culture, Blood [[id number]] (Normal) Collected: 11/19/17 1506 Order Status: Completed Lab Status: Preliminary result Updated: 11/20/17 0321 Specimen: Blood from Peripheral Blood Culture No growth: Monitored continually by instrument for 5 days Culture, Urine [[id number]] Collected: 11/19/17 1416 Order Status: Completed Lab [...] Hoff MD - 11/21/2017 11:05 AM PDT [facility] H[facility]PITALIST PROGRESS NOTE Patient: Reagan Shepard : 1945: Age: 72 y.o. MedRec: [id number] Admission date: 11/19/2017 Hospital day # : [...] E' Septal Velocity 4.79 cm/s MV Deceleration Caroline 336.24 cm/s2 MV Deceleration Time 332.96 msec [...] Value Units Date/Time Respiratory Virus Panel, NAAT [[id number]] Collected: 11/20/17 1257 Order Status: Sent Lab Status: In process Updated: 11/20/17 1302 Specimen: Tissue from Nasopharynx Culture, Wound, Smear [[id number]] Collected: 11/20/17 0825 Order Status: Completed Lab Status: Preliminary result Updated: 11/21/17 0739 Specimen: Tissue from Foot, Right Culture 1+ Gram Negative Jayesh, NOT Pseudomonas Comment: Identification and susceptibility to follow. 1+ Gram Positive Cocci Comment: Isolating for additional information. Gram Stain Result 1+ White Blood Cells No organisms seen Culture, Wound, Smear [[id number]] (Susceptibility) Collected: 11/19/17 2031 Order Status: Completed [...] + Sulfamethoxazole <=20 ug/mL Sensitive Culture, Blood [[id number]] (Normal) Collected: 11/19/17 1537 Order Status: Completed Lab Status: Preliminary result Updated: 11/20/17 0351 Specimen: Blood from Peripheral Blood Culture No growth: Monitored continually by instrument for 5 days Culture, Blood [[id number]] (Normal) Collected: 11/19/17 1506 Order Status: Completed Lab Status: Preliminary result Updated: 11/20/17 0321 Specimen: Blood from Peripheral Blood Culture No growth: Monitored continually by instrument for 5 days Culture, Urine [[id number]] Collected: 11/19/17 1416 Order Status: Completed Lab [...] Other Pharmacy Consult Nasim Jimenez 11/21/2017 11:05 [facility] Nasim Hoff MD - 11/20/2017 10:04 AM PDT [facility] [place] HOSPITALIST PROGRESS NOTE Patient: Reagan Shepard : 1945: Age: 72 y.o. MedRec: [id number] Admission date: 11/19/2017 Hospital day # : [...] PH UA 5.0 5.0 - 8.0 Specific Wann 1.017 1.001 - 1.030 PROTEIN UA 30 [...] Component Value Units Date/Time Culture, Wound, Smear [[id number]] Collected: 11/20/17 0825 Order Status: Sent Lab Status: In process Updated: 11/20/17 0829 Specimen: Tissue from Foot, Right Culture, Wound, Smear [[id number]] Collected: 11/19/172030 Order Status: Completed Lab Status: Preliminary result Updated: 11/20/17 09 Specimen: Tissue from Leg, Lower, Right Culture 2+ Gram Negative Jayesh, NOT Pseudomonas Comment: Identification and susceptibility to follow. 1+ Gram Positive Cocci Comment: Isolating for additional information. Gram Stain Result No white blood cells (PMNs) seen 1+ Gram negative rods Culture, Blood [[id number]] (Normal) Collected: 11/19/17 1537 Order Status: Completed Lab Status: Preliminary result Updated: 11/20/17 0351 Specimen: Blood from Peripheral Blood Culture No growth: Monitored continually by instrument for 5 days Culture, Blood [[id number]] (Normal) Collected: 11/19/17 1506 Order Status: Completed Lab Status: Preliminary result Updated: 11/20/17 0321 Specimen: Blood from Peripheral Blood Culture No growth: Monitored continually by instrument for 5 days Culture, Urine [[id number]] (Normal) Collected: 11/19/17 1416 Order Status: Completed [...] Other Pharmacy Consult Nasim Jimenez 11/20/2017 10:05 [facility] hadra Walsh Phar mD - 11/20/2017 [...] hemisphere; Diabetes mellitus (HCC); Stroke (cerebrum) ([facility]); an d TBI (traumatic brain injury) ([facility]). . No risk factors for [...] Component Value Units Date/Time Culture, Wound, Smear [[id number]] Collected: 11/20/17 0825 Order Status: Sent Lab Status: In process Updated: 11/20/17 08 Specimen: Tissue from Foot, Right Culture, Wound, Smear [[id number]] Collected: 11/19/172030 Order Status: Completed Lab Status: Preliminary result Updated: 11/20/17 09 Specimen: Tissue from Leg, Lower, Right Culture 2+ Gram Negative Jayesh, NOT Pseudomonas Comment: Identification and susceptibility to follow. 1+ Gram Positive Cocci Comment: Isolating for additional information. Gram Stain Result No white blood cells (PMNs) seen 1+ Gram negative rods Culture, Respiratory, Lower, Smear [[id number]] Order Status: Sent Lab Status: No result Specimen: Body Fluid from Sputum, Expectorated Culture, Wound, Smear [[id number]] Order Status: Canceled Lab Status: No result Specimen: Tissue from Leg, Left Culture, Blood [[id number]] (Normal) Collected: 11/19/17 1537 Order Status: Completed Lab Status: Preliminary result Updated: 11/20/17 0351 Specimen: Blood from Peripheral Blood Culture No growth: Monitored continually by instrument for 5 days Culture, Blood [[id number]] (Normal) Collected: 11/19/17 1506 Order Status: Completed Lab Status: Preliminary result Updated: 11/20/17 0321 Specimen: Blood from Peripheral Blood Culture No growth: Monitored continually by instrument for 5 days Culture, Urine [[id number]] (Normal) Collected: 11/19/17 1416 Order Status: Completed [...] hemisphere; Diabetes mellitus (HCC); Stroke (cerebrum) ([facility]); an d TBI (traumatic brain injury) ([facility]). . No risk factors for [...] Value Units Date/Time Culture, Respiratory, Lower, Smear [[id number]] Order Status: Sent Lab Status: No result Specimen: Body Fluid from Sputum, Expectorated Culture, Wound, Smear [[id number]] Order Status: Sent Lab Status: No result Specimen: Tissue from Leg, Left Culture, Blood [[id number]] Collected: 11/19/17 1537 Order Status: Sent Lab Status: In process Updated: 11/19/17 1543 Specimen: Blood from Peripheral Blood Culture, Blood [[id number]] Collected: 11/19/17 1506 Order Status: Sent Lab Status: In process Updated: 11/19/17 1511 Specimen: Blood from Peripheral Blood Culture, Urine [[id number]] Collected: 11/19/17 1416 Order Status: Sent Lab [...] +------+--------+ + + | ED INFORMATION | DNOYA | Routin | | 11/19/2017 1:21 PM [...] | | | | PDT | ([facility]) | results section. | + [...] K?MRN: | | | | | | [id number] | | | [id number] | | | his | | | [...] | | | ent/06 | | | [id number] | | | -9b07- | | | [...] | | | St. | | | [place] | | | y H. | | [...] | | | St. | | | [place] | | | y | | | [...] [address] | [place] | [phone] | | [facility] | | [address] | | | - LABORATORY | | [...] [address] | [place] | [phone] | | [facility] | | [address] | | | - LABORATORY | | [...] [address] | [place] | [phone] | | [facility] | | [address] | | | - LABORATORY | | [...] | | | mg/dL | [facility] | | | | | | MEDICAL | | | | | | CENTER - | | | | | | LABORATORY | | + + + + + + | eGFR if not | >60Comment: GLOMERULAR | >=60 | [facility] | | | | FILTRATION | mL/min/1.73m2 | [facility] | | | NIGERIAN | RATE,ESTIMATED | | MEDICAL | | | | mL/min/1.71d1Dzbd than | | CENTER - | | [...] | | | mg/dL | [facility] | | | | | | [...] [address] | [place] | [phone] | | [facility] | | [address] | | | - LABORATORY | | [...] (H) | 4.0 - 11.0 K/uL | [facility] | | | | | | [facility] | | | | | | MEDICAL | | | | | | CENTER - | | | | | | LABORATORY | | + + + + + + | RBC | 4.60 | 4.30 - 5.70 | [facility] | | | | | M/uL | [facility] | | | | | | [...] + | [facility] | [address] | [place] | [phone] | | [facility] | | [address] | | | - LABORATORY | | [...] ST. | [address] | [place], [place] | [phone] | | [facility] | | [address] | | | - LABORATORY | | [...] [address] | [place] | [phone] | | [facility] | | [address] | | | - LABORATORY | | [...] + | [address] | [address] | [place] | [phone] | | [facility] | | [address] | | | - LABORATORY | | [...] [address] | [place] | [phone] | | [facility] | | [address] | | | - LABORATORY | | [...] | mL/min/1.73m2 | [facility] | | | NIGERIAN | RATE,ESTIMATED | | MEDICAL | | | | mL/min/1.83s5Qlyj than | | CENTER - | | [...] [address] | [place] | [phone] | | [facility] | | [address] | | | - LABORATORY | | [...] | | | | g/dL | [facility] | | | | [...] + | [address] | [address] | [place] | [phone] | | [facility] | | [address] | | | - LABORATORY | | [...] [address] | [place] | [phone] | | [facility] | | [address] | | | - LABORATORY | | [...] [address] | [place] | [phone] | | [facility] | | [address] | | | - LABORATORY | | [...] + | [facility] | [address] | [place] | [phone] | | [facility] | | [address] | | | - LABORATORY | | [...] + | [facility] | [address] | [place] | [phone] | | [facility] | | [address] | | | - LABORATORY | | [...] ST. | [address] | [place], [place] | [phone] | | [facility] | | [address] | | | - LABORATORY | | [...] | 0.87 | 0.60 - 1.30 | [facility] | | | | | mg/dL | [facility] | | | | | | MEDICAL | | | | | | CENTER - | | | | | | LABORATORY | | + + + + + + | eGFR if not | >60Comment: GLOMERULAR | >=60 | [facility] | | | | FILTRATION | mL/min/1.73m2 | [facility] | | | NIGERIAN | RATE,ESTIMATED | | MEDICAL | | | | mL/min/1.02u1Bluy than | | CENTER - | | [...] [address] | [place] | [phone] | | [facility] | | [address] | | | - LABORATORY | | [...] + | [facility] | [address] | [place] | [phone] | | [facility] | | [address] | | | - LABORATORY | | [...] [address] | [place] | [phone] | | [facility] | | [address] | | | - LABORATORY | | [...] ST. | [address] | [place] | [phone] | | [facility] | | [address] | | | - LABORATORY | | [...] + | [facility] | [address] | [place] | [phone] | | [facility] | | [address] | | | - LABORATORY | | [...] + | [address] | [address] | [place], [place] | [phone] | | [facility] | | [address] | | | - LABORATORY | | [...] [address] | [place] | [phone] | | [facility] | | [address] | | | - LABORATORY | | [...] ST. | [address] | [place] | [phone] | | [facility] | | [address] | | | - LABORATORY | | [...] [address] | [place] | [phone] | | [facility] | | [address] | | | - LABORATORY | | [...] | 1.04 | 0.60 - 1.30 | [facility] | | | | | mg/dL | [facility] | | | | | | MEDICAL | | | | | | CENTER - | | | | | | LABORATORY | | + + + + + + | eGFR if not | >60Comment: GLOMERULAR | >=60 | [facility] | | | | FILTRATION | mL/min/1.73m2 | [facility] | | | NIGERIAN | RATE,ESTIMATED | | MEDICAL | | | | mL/min/1.08q8Gnss than | | CENTER - | | [...] + | [facility] | [address] | [place] | [phone] | | [facility] | | [address] | | | - LABORATORY | | [...] ST. | [address] | [place], [place] | [phone] | | [facility] | | [address] | | | - LABORATORY | | [...] [address] | [place] | [phone] | | [facility] | | [address] | | | - LABORATORY | | [...] [address] | [place] | [phone] | | [facility] | | [address] | | | - LABORATORY | | [...] [address] | [place] | [phone] | | [facility] | | [address] | | | - LABORATORY | | [...] [address] | [place] | [phone] | | [facility] | | [address] | | | - LABORATORY | | [...] + | [facility] | [address] | [place] | [phone] | | [facility] | | [address] | | | - LABORATORY | | [...] + | [facility] | [address] | [place] | [phone] | | [facility] | | [address] | | | - LABORATORY | | [...] + | [address] | [address] | [place] | [phone] | | [facility] | | [address] | | | - LABORATORY | | [...] [address] | [place] | [phone] | | [facility] | | [address] | | | - LABORATORY | | [...] ST. | [address] | [place] | [phone] | | [facility] | | [address] | | | - LABORATORY | | [...] [address] | [place] | [phone] | | [facility] | | [address] | | | - LABORATORY | | [...] + | [facility] | [address] | [place] | [phone] | | [facility] | | [address] | | | - LABORATORY | | [...] ST. | [address] | [place] | [phone] | | [facility] | | [address] | | | - LABORATORY | | [...] | FILTRATION | mL/min/1.73m2 | [facility] | | | NIGERIAN | RATE,ESTIMATED | | MEDICAL | | | | mL/min/1.57n4Bztk than | | CENTER - | | [...] | | | mg/dL | [facility] | | | | | | [...] [address] | [place] | [phone] | | [facility] | | [address] | | | - LABORATORY | | [...] [address] | [place] | [phone] | | [facility] | | [address] | | | - LABORATORY | | [...] + | [facility] | [address] | [place] | [phone] | | [facility] | | [address] | | | - LABORATORY | | | | + + + + + Surgical Pathology Exam (11/21/2017 12:00 AM PDT) + + | Specimen | + + | | + + + + + | Narrative | Performed At | + + + | SPECIMEN(S): A RIGHT 5TH MEATATRSAL SPECIMEN SOURCE: A. RIGHT | [facility] | | 5TH MEATATRSAL CLINICAL HISTORY: 5th metatarsal diabetic | INCYTE | | infection. FINAL PATHOLOGIC DIAGNOSIS: Right 5th metatarsal: - | | | Bone with focal serous fat necrosis with associated acute and | | | chronic inflammation suggestive of osteomyelitis. JVR:[facility]:C2NR | | | MICROSCOPIC EXAMINATION: Histologic [...] decalcified in decal | | | STAT).. am:AMB:[facility] PERFORMING LABORATORY: The technical | | | component was performed by [facility], [address] [place] [address] | | | [facility] [address] (Retail Security Professional: Khadra Gill MD; CLIA# | | | [id number]). Professional interpretation was performed by [facility] | | | [facility], [address] | | | [facility] [address] [place] [address] (Retail Security Professional: Ambrosio | | | [place] Hall). Diagnostician: Ambrosio Hall MD | | | Pathologist Electronically Signed 11/23/2017 | | + + + + +---------+ + + | Performing | Address | City/State/Zipcode | Phone Number | | Organization | | | | + +---------+ + + | [facility] | | | | | [facility] | | | | + +---------+ + [...] [address] | [place] | [phone] | | [facility] | | [address] | | | - LABORATORY | | [...] | | | | | | n Caroline | | | | | + +---------+ [...] [address] | [place] | [phone] | | [facility] | | [address] | | | - LABORATORY | | [...] + | Performed at: 01 - [facility] [place] [address], | REFERENCE LAB | | [place], [place] [id number] Methodologist: Jurgen Costa MD, Phone: | [facility] | | [phone] | | + + + + + + + + | Performing | Address | City/State/Zipcode | Phone Number | | Organization | | | | + + + + + | REFERENCE LAB | [address] | [place] [address] | [phone] | | [facility] | [address] [...] [address] | [place] | [phone] | | [facility] | | [address] | | | - LABORATORY | | [...] [address] | [place] | [phone] | | [facility] | | [address] | | | - LABORATORY | | [...] + | [facility] | [address] | [place] | [phone] | | [facility] | | [address] | | | - LABORATORY | | [...] [address] | [place] | [phone] | | [facility] | | [address] | | | - LABORATORY | | [...] + | [facility] | [address] | [place] | [phone] | | [facility] | | [address] | | | - LABORATORY | | [...] ST. | [address] | [place] | [phone] | | [facility] | | [address] | | | - LABORATORY | | [...] [address] | [place] | [phone] | | [facility] | | [address] | | | - LABORATORY | | [...] | | | | | | [facility] | | | | | [...] + | [facility] | [address] | [place] | [phone] | | [facility] | | [address] | | | - LABORATORY | | [...] [address] | [place] | [phone] | | [facility] | | [address] | | | - LABORATORY | | [...] | | | | mmol/L | [facility] | | | | [...] | FILTRATION | mL/min/1.73m2 | [facility] | | | NIGERIAN | RATE,ESTIMATED | | MEDICAL | | | | mL/min/1.37x1Srmo than | | CENTER - | | [...] | | | mg/dL | [facility] | | | | | | [...] [address] | [place] | [phone] | | [facility] | | [address] | | | - LABORATORY | | [...] [address] | [place] | [phone] | | [facility] | | [address] | | | - LABORATORY | | [...] + | [facility] [facility] | [address] | [place] | [phone] | | [facility] | | [address] | | | - LABORATORY | | [...] ST. | [address] | [place] | [phone] | | [facility] | | [address] | | | - LABORATORY | | [...] [address] | [place] | [phone] | | [facility] | | [address] | | | - LABORATORY | | [...] + | [address] | [address] | [place] | [phone] | | [facility] | | [address] | | | - LABORATORY | | [...] + | [facility] | [address] | [place] | [phone] | | [facility] | | [address] | | | - LABORATORY | | [...] [address] | [place] | [phone] | | [facility] | | [address] | | | - LABORATORY | | [...] + | [facility] | [address] | [place] | [phone] | | [facility] | | [address] | | | - LABORATORY | | [...] | FILTRATION | mL/min/1.73m2 | [facility] | | | NIGERIAN | RATE,ESTIMATED | | MEDICAL | | | | mL/min/1.42p9Zitj than | | CENTER - | | [...] | | | mg/dL | [facility] | | | | | | [...] | Performing | Address | City/State[facility] | Phone Number | | Organization | | | | + + + + + | KIR[facility]MER. | [address] | [place] | [phone] | | [facility] | | [address] | | | - LABORATORY | | [...] | Basophils | | K/uL | [facility] | | | | | [...] [address] | [place] | [phone] | | [facility] | | [address] | | | - LABORATORY | | [...] | Performing | Address | City/State/[facility] | Phone Number | | [...] | REFERENCE | | | | [facility] | | LAB [facility] | | | | standards require a | | - [facility] | | | | culture to beperformed | | | | | | on CSF specimens | | | | | | submitted for bacterial | | | | | | antigen testing.(CAP | | | | | | [id number]) Urine | | | | | | specimens will not be | | | | | | cultured. | | | | + + + + + + + + | Specimen | + + | Urine | + + + + + | Narrative | Performed At | + + + | Performed at: 01 - [facility] [address] [facility], | REFERENCE LAB | | [place], [place] [id number] Methodologist: Christ Deal MD, Phone: | NIKKI MONZON | | [phone] | | + + + + + + + + | Performing | Address | City/State/Zipcode | Phone Number | | Organization | | | | + + + + + | REFERENCE LAB | [address] | [place] [address] | [phone] | | NIKKI - NICOL[address] | Drive [facility] | | | + + + [...] [address] | [place] | [phone] | | [facility] | | [address] | | | - LABORATORY | | [...] - 1.030 | [facility] | | | [address] | | | [facility] | | [...] [address] | [place] | [phone] | | [facility] | | [address] | | | - LABORATORY | | [...] | | | | | | use [place] 10/325 if ordered. If | | | [...] scheduled: AC, NPO, Daytime | | | 4502-6734 Use NIGHT DOSE for | | | doses scheduled: HS, 3AM, | | | Nighttime 3948-6438, | | + +---+ | | | [...]
--- OUTSIDE RECORDS SUMMARY | ~2019-03-28 | XMS | Encounter Summary ---
Demographics + + + | Address | [address] | | | [place] [address] | + + + | Home Phone [...] Organization | [facility] | | | and [place] | + + + | Address | Unknown | + + + | Phone | Unavailable | + + + Support + + + + + | Name | Relationship | Address | Phone | + + + + + | Jessica Shepard | ECON | [address] | | | | | [place] | | | | | [address] | | + + + + + | Bel Solis | ECON | Unknown | | + + + + + | José She[place] | ECON | [place] | | | | | [address] | | + + + + + | Jessica Shepard | ECON | Unknown | | + + + + + Care Team Providers + +------+ + | Care Registered Nurse Practitioner Name | Role | Phone | + +------+ + PCP | Unavailable | + +------+ + Encounter Details +--------+ + + + + | Date | Type | Department | Care Team | Description | +--------+ + + + + | 04/16/ | Hospital | [facility] | Dian Lr NP | | | 2011 | Encounter | MED CTR XRAY [address] | [address] | | | | | [place] | [place] [address] | | | | | [place] [address] | [phone] | | | | | [phone] | | | +--------+ + + + [...] Performed At | + + + | [facility] Diagnostic Imaging Department | [facility] | | [address] [facility] | [facility] | | BONE DENSITY TESTING: | [...] Transcribed Date/Time: | | | 04/16/2011 14:14 Ammonia Worker: VIVEK <Electronically Signed | | | by David Guillermo MD> 04/16/11 1459 | | + + + + + | Procedure Note | + + | Eliel Ornelas Conversion - 04/27/2013 4:38 PM [facility] | | Diagnostic Imaging Department [address] [place] [address] | | BONE DENSITY TESTIN04/16/2011 CLINICAL HISTORY: [...] 13:48 | |Transcribed Date/Time: 04/16/2011 14:14 | |Ammonia Worker: | |<Electronically Signed by David Guillermo MD> 04/16/11 1893 | + + + +---------+ + + [...]
--- OUTSIDE RECORDS SUMMARY | ~2019-03-28 | XMS | Encounter Summary ---
Demographics + + + | Address | [address] | | | [place] [address] | + + + | Home Phone [...] Organization | [facility] | | | and [place] | + + + | Address | Unknown | + + + | Phone | Unavailable | + + + Support + + + + + | Name | Relationship | Address | Phone | + + + + + | Jessica Shepard | ECON | [address] | | | | | [place] | | | | | [address] | | + + + + + | Bel Solis | ECON | Unknown | | + + + + + | José Shepard | ECON | [place] | | | | | [address] | | + + + + + | Jessica Shepard | ECON | Unknown | | + + + + + Care Team Providers + +------+ + | Care Residential Construction Instructor Name | Role | Phone | + +------+ + PCP | Unavailable | + +------+ + Encounter Details +--------+ + + + + | Date | Type | Department | Care Team | Description | +--------+ + + + + | 09/14/ | Hospital | [facility] | | | | 2001 | Encounter | MED CTR XRAY [address] | | | | | | [place] | | | | | | [place] [address] | | | | | | [phone] | | | +--------+ + + + [...]
--- OUTSIDE RECORDS SUMMARY | ~2019-03-28 | XMS | Encounter Summary ---
Demographics + + + | Address | [address] | | | [place] [address] | + + + | Home Phone [...] | Organization | [facility] | | | and [place] | + + + | Address | Unknown | + + + | Phone | Unavailable | + + + Support + + + + + | Name | Relationship | Address | Phone | + + + + + | Jessica Shepard | ECON | [address] | | | | | [place] | | | | | [address] | | + + + + + | Bel Solis | ECON | Unknown | | + + + + + | José Shepard | ECON | [place] | | | | | [address] | | + + + + + | Jessica Shepard | ECON | Unknown | | + + + + + Care Team Providers + +------+ + | Care Senior Online Marketing Manager Name | Role | Phone | [...] + + | 11/19/ | Hospital | [facility] | Jurgen Casiano | initial | | 2018 - | Encounter | [facility] | MD Shayne [address] | encounter (Primary | | | | [address] [place] | [address] [place] | Dx); Fever, | | 11/25/ | | [place] [address] | [place] [address] | unspecified fever | | 2018 | | [phone] | [phone] | cause; Pneumonia due | | | | | | to infectious | | | | | Gray Perea MD | organism, | | | | | [address] | unspecified | | | | | [place], [place] | laterality, | | | | | [address] | unspecified part of | | | | | | lung; Sepsis, due to | | | | | Mil Sandoval MD | unspecified | | | | | [address] | organism (HCC); | | | | | [place] | Insulin dependent | | | | | [address] | diabetes mellitus | | | | | | ([facility]); Other chronic | | | | | | osteomyelitis of | | | | | | right foot ([facility]); | | | | | | Peripheral vascular | | | | | | disease ([facility]) | +--------+ + + + + Social [...] other anesthesia was used during the case. [facility] lower extremity was then scrubbed, prepped [...] ordered Code Status: Full Code Disposition: [facility] Discharge Condition: Stable, very deconditioned and weak at baseline Pleasant, no distress RRR, no m/r/g CTA bilaterally Soft, obese, NT Ext WWP, right foot ulcer with deep wound, slight purulent drainage Contact information for after-discharge care Placement Destination [facility] . Specialty: [facility] Contact information: [address] [place] [address] Discharge Medications New [...] signed by: Justin Reyna MD, 11/25/2017 13:01 [facility] documented in this encounter Medications at [...] might be different f rom the original. [facility] Hospitalist Progress Note Reagan Shepard [...] Mechanical fall -PT/OT ordered Disposition : [facility] as soon as 11/25 Prophylaxis : [...] as outlined above. Justin Reyna 11/24/2017 18:16 [facility] Sang Duff MD - 11/24/2017 1:59 PM PDTWe are evaluating the patient for further medical rehabilitatio n services. He does not qualify per CMS guidelines for full inpatient rehab . I recommend he be transferred to SNF for further skilled therapies once he is cleared acute ly. Justin Rodriguez MD - 11/23/2017 2:24 PM PDT [facility] Hospitalist Progress Note Reagan Shepard [...] as outlined above. Justin Reyna 11/23/2017 14:24 [facility] ornia, Simone Voss DPM - 11/23/2017 1:58 PM PDT Foot & Ankle Surgery Progress Note Simone Aceves DPM Reagan Shepard Age/Gender 72 y.o. male Location [facility] MEDICAL Attending Mil Sandoval MD [...] Value Units Date/Time Culture, Wound, Smear, w/Anaerobe [[id number]] Collected: 11/21/171207 Order Status: Sent Lab Status: In process Updated: 11/21/17 125 Specimen: Tissue from Toe, Fifth/Small, Right Narrative: The following orders were created for panel order Culture, Wound, Smear, w/Anaerobe. Procedure Abnormality Status --------- ------ Culture, Wound, Smear[[id number]] In process Culture, Anaerobic[[id number]] In process Please view results for these tests on the individual orders. Culture, Wound, Smear [[id number]] Collected: 11/21/171207 Order Status: Sent Lab Status: In process Updated: 11/21/17 125 Specimen: Tissue from Toe, Fifth/Small, Right Culture, Anaerobic [[id number]] Collected: 11/21/171207 Order Status: Sent Lab Status: [...] Simone Aceves DPM 13:58; 11/23/2017 Irasema Dominguez, Tunnel Heading Supervisor - 11/23/2017 9:43 AM PDT PHARMACY SERVICES: [...] strength, and directions X Pharmacy list names: [facility] X [employer] insurance reported information X Care [...] Prior to Admission Sig: Patient taking differently SURVEY FIELD TECHNICIAN as: Hydrocodone-acetaminophen 10-325 mg Take one tablet by mouth four times daily as needed fo r pain Patient taking 1 tablet three times daily as a scheduled dose Best possible SURVEY FIELD TECHNICIAN medication list after pharmacy review: PT REPORTED [...] performed and electronically signed by Blanquita Bertrand, Commercial Service Technician 11/22/2017 8:38 Electronically signed by: Irasema Moyer, Tunnel Heading Supervisor 11/23/2017 9:43 Justin Rodriguez MD - 11/22/2017 5:22 PM PDT [facility] PMG Hospitalist Progress Note Reagan Shepard [...] as outlined above. Justin Reyna 11/22/2017 17:40 [facility] anielle Guillermo, Business Manager - 11/22/2017 2:13 PM PDTFormatting of [...] hemisphere; Diabetes mellitus (HCC); Stroke (cerebrum) ([facility]); an d TBI (traumatic brain injury) ([facility]). No risk factors for MDR organisms. HPI: [...] Value Units Date/Time Culture, Wound, Smear, w/Anaerobe [[id number]] Collected: 11/21/17 1208 Order Status: Sent Lab Status: In process Updated: 11/21/17 1250 Specimen: Tissue from Toe, Fifth/Small, Right Narrative: The following orders were created for panel order Culture, Wound, Smear, w/Anaerobe. Procedure Abnormality Status --------- ------ Culture, Wound, Smear[[id number]] Preliminary result Culture, Anaerobic[[id number]] In process Please view results for these tests on the individual orders. Culture, Wound, Smear [[id number]] Collected: 11/21/17 1208 Order Status: Completed Lab Status: Preliminary result Updated: 11/22/17 1021 Specimen: Tissue from Toe, Fifth/Small, Right Culture 2+ Lactose Fermenting Gram Negative Bacilli Comment: Identification and susceptibility to follow. Gram Stain Result 2+ White Blood Cells 1+ Epithelial cells 2+ Gram negative rods Culture, Anaerobic [[id number]] Collected: 11/21/17 1208 Order Status: Sent Lab Status: In process Updated: 11/21/17 1250 Specimen: Tissue from Toe, Fifth/Small, Right Respiratory Virus Panel, NAAT [[id number]] Collected: 11/20/17 1257 Order Status: Completed Lab [...] pneumoniae DNA Not Detected Narrative: Performed at: [address] [place] [id number] Plant Supervisor: Jurgen Costa MD, Phone: [phone] Culture, Wound, Smear [[id number]] (Susceptibility) Collected: 11/20/17 0825 Order Status: Completed [...] Sulfamethoxazole <=20 ug/mL Sensitive Culture, Wound, Smear [[id number]] (Susceptibility) Collected: 11/19/172030 Order Status: Completed Lab [...] no longer reported. Culture, Respiratory, Lower, Smear [[id number]] Order Status: Sent Lab Status: No result Specimen: Body Fluid from Sputum, Expectorated Culture, Wound, Smear [[id number]] Order Status: Canceled Lab Status: No result Specimen: Tissue from Leg, Left Culture, Blood [[id number]] (Normal) Collected: 11/19/17 1537 Order Status: Completed Lab Status: Preliminary result Updated: 11/20/17 0351 Specimen: Blood from Peripheral Blood Culture No growth: Monitored continually by instrument for 5 days Culture, Blood [[id number]] (Normal) Collected: 11/19/17 1506 Order Status: Completed Lab Status: Preliminary result Updated: 11/20/17 0321 Specimen: Blood from Peripheral Blood Culture No growth: Monitored continually by instrument for 5 days Culture, Urine [[id number]] Collected: 11/19/17 1416 Order Status: Completed Lab [...] Monitoring Protocol Electronically signed by: Danielle Guillermo, Business Manager 11/22/2017 14:13 Associated attestation - Luther Hampton, [...] Reagan Shepard Age/Gender 72 y.o. male Location [facility] MEDICAL Attending Mil Sandoval MD [...] Value Units Date/Time Culture, Wound, Smear, w/Anaerobe [[id number]] Collected: 11/21/17 1208 Order Status: Sent Lab Status: In process Updated: 11/21/17 1250 Specimen: Tissue from Toe, Fifth/Small, Right Narrative: The following orders were created for panel order Culture, Wound, Smear, w/Anaerobe. Procedure Abnormality Status --------- ------ Culture, Wound, Smear[[id number]] In process Culture, Anaerobic[[id number]] In process Please view results for these tests on the individual orders. Culture, Wound, Smear [[id number]] Collected: 11/21/17 1208 Order Status: Sent Lab Status: In process Updated: 11/21/17 1250 Specimen: Tissue from Toe, Fifth/Small, Right Culture, Anaerobic [[id number]] Collected: 11/21/17 1208 Order Status: Sent Lab [...] hemisphere; Diabetes mellitus (HCC); Stroke (cerebrum) ([facility]); an d TBI (traumatic brain injury) ([facility]). . No risk factors for MDR organisms. [...] Value Units Date/Time Culture, Wound, Smear, w/Anaerobe [[id number]] Collected: 11/21/17 120 Order Status: Sent Lab Status: In process Updated: 11/21/17 1250 Specimen: Tissue from Toe, Fifth/Small, Right Narrative: The following orders were created for panel order Culture, Wound, Smear, w/Anaerobe. Procedure Abnormality Status --------- ------ Culture, Wound, Smear[[id number]] In process Culture, Anaerobic[[id number]] In process Please view results for these tests on the individual orders. Culture, Wound, Smear [[id number]] Collected: 11/21/17 120 Order Status: Sent Lab Status: In process Updated: 11/21/17 1250 Specimen: Tissue from Toe, Fifth/Small, Right Culture, Anaerobic [[id number]] Collected: 11/21/171207 Order Status: Sent Lab Status: In process Updated: 11/21/17 1250 Specimen: Tissue from Toe, Fifth/Small, Right Respiratory Virus Panel, NAAT [[id number]] Collected: 11/20/17 1257 Order Status: Sent Lab Status: In process Updated: 11/20/17 1302 Specimen: Tissue from Nasopharynx Culture, Wound, Smear [[id number]] Collected: 11/20/17 0825 Order Status: Completed Lab Status: Preliminary result Updated: 11/21/17 0739 Specimen: Tissue from Foot, Right Culture 1+ Gram Negative Jayesh, NOT Pseudomonas Comment: Identification and susceptibility to follow. 1+ Gram Positive Cocci Comment: Isolating for additional information. Gram Stain Result 1+ White Blood Cells No organisms seen Culture, Wound, Smear [[id number]] (Susceptibility) Collected: 11/19/172030 Order Status: Completed Lab [...] <=20 ug/mL Sensitive Culture, Respiratory, Lower, Smear [[id number]] Order Status: Sent Lab Status: No result Specimen: Body Fluid from Sputum, Expectorated Culture, Wound, Smear [[id number]] Order Status: Canceled Lab Status: No result Specimen: Tissue from Leg, Left Culture, Blood [[id number]] (Normal) Collected: 11/19/17 1537 Order Status: Completed Lab Status: Preliminary result Updated: 11/20/17 0351 Specimen: Blood from Peripheral Blood Culture No growth: Monitored continually by instrument for 5 days Culture, Blood [[id number]] (Normal) Collected: 11/19/17 1506 Order Status: Completed Lab Status: Preliminary result Updated: 11/20/17 0321 Specimen: Blood from Peripheral Blood Culture No growth: Monitored continually by instrument for 5 days Culture, Urine [[id number]] Collected: 11/19/17 1416 Order Status: Completed Lab [...] Hoff MD - 11/21/2017 11:05 AM PDT [place], [place] HOSPITALIST PROGRESS NOTE Patient: Reagan Shepard : 1945: Age: 72 y.o. MedRec: [id number] Admission date: 11/19/2017 Hospital day # : [...] E' Septal Velocity 4.79 cm/s MV Deceleration [place] 336.24 cm/s2 MV Deceleration Time 332.96 msec [...] Value Units Date/Time Respiratory Virus Panel, NAAT [[id number]] Collected: 11/20/17 1257 Order Status: Sent Lab Status: In process Updated: 11/20/17 1302 Specimen: Tissue from Nasopharynx Culture, Wound, Smear [[id number]] Collected: 11/20/17 0825 Order Status: Completed Lab Status: Preliminary result Updated: 11/21/17 0739 Specimen: Tissue from Foot, Right Culture 1+ Gram Negative Jayesh, NOT Pseudomonas Comment: Identification and susceptibility to follow. 1+ Gram Positive Cocci Comment: Isolating for additional information. Gram Stain Result 1+ White Blood Cells No organisms seen Culture, Wound, Smear [[id number]] (Susceptibility) Collected: 11/19/172030 Order Status: Completed Lab [...] + Sulfamethoxazole <=20 ug/mL Sensitive Culture, Blood [[id number]] (Normal) Collected: 11/19/17 1537 Order Status: Completed Lab Status: Preliminary result Updated: 11/20/17 0351 Specimen: Blood from Peripheral Blood Culture No growth: Monitored continually by instrument for 5 days Culture, Blood [[id number]] (Normal) Collected: 11/19/17 1506 Order Status: Completed Lab Status: Preliminary result Updated: 11/20/17 0321 Specimen: Blood from Peripheral Blood Culture No growth: Monitored continually by instrument for 5 days Culture, Urine [[id number]] Collected: 11/19/17 1416 Order Status: Completed Lab [...] Other Pharmacy Consult Nasim Jimenez 11/21/2017 11:05 [facility] Nasim Hoff MD - 11/20/2017 10:04 AM PDT [facility] KELLIE GUTIERREZ HOSPITALIST PROGRESS NOTE Patient: Reagan Shepard : 1945: Age: 72 y.o. MedRec: [id number] Admission date: 11/19/2017 Hospital day # : [...] PH UA 5.0 5.0 - 8.0 Specific [place] 1.017 1.001 - 1.030 PROTEIN UA 30 [...] Component Value Units Date/Time Culture, Wound, Smear [[id number]] Collected: 11/20/17 0825 Order Status: Sent Lab Status: In process Updated: 11/20/17 0829 Specimen: Tissue from Foot, Right Culture, Wound, Smear [[id number]] Collected: 11/19/17 203 Order Status: Completed Lab Status: Preliminary result Updated: 11/20/17 09 Specimen: Tissue from Leg, Lower, Right Culture 2+ Gram Negative Jayesh, NOT Pseudomonas Comment: Identification and susceptibility to follow. 1+ Gram Positive Cocci Comment: Isolating for additional information. Gram Stain Result No white blood cells (PMNs) seen 1+ Gram negative rods Culture, Blood [[id number]] (Normal) Collected: 11/19/17 1537 Order Status: Completed Lab Status: Preliminary result Updated: 11/20/17 0351 Specimen: Blood from Peripheral Blood Culture No growth: Monitored continually by instrument for 5 days Culture, Blood [[id number]] (Normal) Collected: 11/19/17 1506 Order Status: Completed Lab Status: Preliminary result Updated: 11/20/17 0321 Specimen: Blood from Peripheral Blood Culture No growth: Monitored continually by instrument for 5 days Culture, Urine [[id number]] (Normal) Collected: 11/19/17 1416 Order Status: Completed [...] Other Pharmacy Consult Nasim Jimenez 11/20/2017 10:05 [facility] Khadra Mac Phar mD - 11/20/2017 [...] hemisphere; Diabetes mellitus (HCC); Stroke (cerebrum) ([facility]); an d TBI (traumatic brain injury) ([facility]). . No risk factors for MDR organisms. [...] Component Value Units Date/Time Culture, Wound, Smear [[id number]] Collected: 11/20/17 0825 Order Status: Sent Lab Status: In process Updated: 11/20/17 08 Specimen: Tissue from Foot, Right Culture, Wound, Smear [[id number]] Collected: 11/19/172030 Order Status: Completed Lab Status: Preliminary result Updated: 11/20/17 09 Specimen: Tissue from Leg, Lower, Right Culture 2+ Gram Negative Jayesh, NOT Pseudomonas Comment: Identification and susceptibility to follow. 1+ Gram Positive Cocci Comment: Isolating for additional information. Gram Stain Result No white blood cells (PMNs) seen 1+ Gram negative rods Culture, Respiratory, Lower, Smear [[id number]] Order Status: Sent Lab Status: No result Specimen: Body Fluid from Sputum, Expectorated Culture, Wound, Smear [[id number]] Order Status: Canceled Lab Status: No result Specimen: Tissue from Leg, Left Culture, Blood [[id number]] (Normal) Collected: 11/19/17 1537 Order Status: Completed Lab Status: Preliminary result Updated: 11/20/17 0351 Specimen: Blood from Peripheral Blood Culture No growth: Monitored continually by instrument for 5 days Culture, Blood [[id number]] (Normal) Collected: 11/19/17 1506 Order Status: Completed Lab Status: Preliminary result Updated: 11/20/17 0321 Specimen: Blood from Peripheral Blood Culture No growth: Monitored continually by instrument for 5 days Culture, Urine [[id number]] (Normal) Collected: 11/19/17 1416 Order Status: Completed [...] an d TBI (traumatic brain injury) ([facility]). . No risk factors for MDR organisms. [...] Value Units Date/Time Culture, Respiratory, Lower, Smear [[id number]] Order Status: Sent Lab Status: No result Specimen: Body Fluid from Sputum, Expectorated Culture, Wound, Smear [[id number]] Order Status: Sent Lab Status: No result Specimen: Tissue from Leg, Left Culture, Blood [[id number]] Collected: 11/19/17 1537 Order Status: Sent Lab Status: In process Updated: 11/19/17 1543 Specimen: Blood from Peripheral Blood Culture, Blood [[id number]] Collected: 11/19/17 1506 Order Status: Sent Lab Status: In process Updated: 11/19/17 1511 Specimen: Blood from Peripheral Blood Culture, Urine [[id number]] Collected: 11/19/17 1416 Order Status: Sent Lab [...] the | | | | PDT | ([facility]) | results section. | + +--------+ + [...] K?MRN: | | | | | | [id number] | | | [id number] | | | his | | | [...] | | | ent/06 | | | [id number] | | | -9b07- | | | [...] | | | St. | | | [place] | | | y H. | | [...] | | | St. | | | [place] | | | y | | | [...] + | [facility] | [address] | [place] | [phone] | | [facility] | | [address] | | | - LABORATORY | | [...] [address] | [place] | [phone] | | [facility] | | [address] | | | - LABORATORY | | [...] + | [facility] | [address] | [place] | [phone] | | [facility] | | [address] | | | - LABORATORY | | [...] | mL/min/1.73m2 | [facility] | | | [place] | RATE,ESTIMATED | | MEDICAL | | | | mL/min/1.55a0Ocfc than | | CENTER - | | [...] [address] | [place] | [phone] | | [facility] | | [address] | | | - LABORATORY | | [...] ST. | [address] | [place] | [phone] | | [facility] | | [address] | | | - LABORATORY | | [...] | | POC | | | [facility] | | | | | | [...] [address] | [place] | [phone] | | [facility] | | [address] | | | - LABORATORY | | [...] | | POC | | | [facility] | | | | | | [...] + | [facility] | [address] | [place] | [phone] | | [facility] | | [address] | | | - LABORATORY | | [...] [address] | [place] | [phone] | | [facility] | | [address] | | | - LABORATORY | | [...] + | [facility] | [address] | [place] | [phone] | | [facility] | | [address] | | | - LABORATORY | | [...] | 7 - 18 mg/dL | [facility] | | | | | | [facility] | | | | | | MEDICAL | | | | | | CENTER - | | | | | | LABORATORY | | + + + + + + | Creatinine | 0.91 | 0.60 - 1.30 | [facility] | | | | | mg/dL | [facility] | | | | | | MEDICAL | | | | | | CENTER - | | | | | | LABORATORY | | + + + + + + | eGFR if not | >60Comment: GLOMERULAR | >=60 | [facility] | | | | FILTRATION | mL/min/1.73m2 | [facility] | | | [place] | RATE,ESTIMATED | | MEDICAL | | | | mL/min/1.43p6Fpga than | | CENTER - | | [...] [address] | [place] | [phone] | | [facility] | | [address] | | | - LABORATORY | | [...] [address] | [place] | [phone] | | [facility] | | [address] | | | - LABORATORY | | [...] [address] | [place] | [phone] | | [facility] | | [address] | | | - LABORATORY | | [...] + | [facility] | [address] | [place] | [phone] | | [facility] | | [address] | | | - LABORATORY | | [...] [address] | [place] | [phone] | | [facility] | | [address] | | | - LABORATORY | | [...] [address] | [place] | [phone] | | [facility] | | [address] | | | - LABORATORY | | [...] + | [facility] | [address] | [place] | [phone] | | [facility] | | [address] | | | - LABORATORY | | [...] mL/min/1.73m2 | [facility] | | | [place] | RATE,ESTIMATED | | MEDICAL | | | | mL/min/1.76x0Zdka than | | CENTER - | | [...] [address] | [place] | [phone] | | [facility] | | [address] | | | - LABORATORY | | [...] | Basophils | | K/uL | [facility] | | | | | | [...] [address] | [place] | [phone] | | [facility] | | [address] | | | - LABORATORY | | [...] [address] | [place] | [phone] | | [facility] | | [address] | | | - LABORATORY | | [...] [address] | [place] | [phone] | | [facility] | | [address] | | | - LABORATORY | | [...] ST. | [address] | [place] | [phone] | | [facility] | | [address] | | | - LABORATORY | | [...] [address] | [place] | [phone] | | [facility] | | [address] | | | - LABORATORY | | [...] [address] | [place] | [phone] | | [facility] | | [address] | | | - LABORATORY | | [...] + | [facility] | [address] | [place] | [phone] | | [facility] | | [address] | | | - LABORATORY | | [...] [address] | [place] | [phone] | | [facility] | | [address] | | | - LABORATORY | | [...] mL/min/1.73m2 | [facility] | | | [place] | RATE,ESTIMATED | | MEDICAL | | | | mL/min/1.01q4Vuci than | | CENTER - | | [...] + | [facility] | [address] | [place] | [phone] | | [facility] | | [address] | | | - LABORATORY | | [...] + | [facility] | [address] | [place] | [phone] | | [facility] | | [address] | | | - LABORATORY | | [...] [address] | [place] | [phone] | | [facility] | | [address] | | | - LABORATORY | | [...] | | | POC | | | [facility] | | | | | MEDICAL [...] [address] | [place] | [phone] | | [facility] | | [address] | | | - LABORATORY | | [...] [address] | [place] | [phone] | | [facility] | | [address] | | | - LABORATORY | | [...] | | | aerogenesComment: | | [facility] | | | | Consider combination [...] + | [facility] | [address] | [place] | [phone] | | [facility] | | [address] | | | - LABORATORY | | [...] [address] | [place] | [phone] | | [facility] | | [address] | | | - LABORATORY | | [...] [address] | [place] | [phone] | | [facility] | | [address] | | | - LABORATORY | | [...] + | No immature cells seen | [facility] | | | [facility] | | | [facility] | | | - LABORATORY | + + + + + + + + | Performing | Address | City/State/Zipcode | Phone Number | | Organization | | | | + + + + + | [facility] | [address] | [place] | [phone] | | [facility] | | [address] | | | - LABORATORY | | [...] [address] | [place] | [phone] | | [facility] | | [address] | | | - LABORATORY | | [...] + | [facility] | [address] | [place] | [phone] | | [facility] | | [address] | | | - LABORATORY | | [...] [address] | [place] | [phone] | | [facility] | | [address] | | | - LABORATORY | | [...] [address] | [place] | [phone] | | [facility] | | [address] | | | - LABORATORY | | [...] + | [facility] | [address] | [place] | [phone] | | [facility] | | [address] | | | - LABORATORY | | [...] | | | | mmol/L | [facility] | | | | | | MEDICAL [...] | mL/min/1.73m2 | ELY | | | [place] | RATE,ESTIMATED | | MEDICAL | | | | mL/min/1.36x6Fdrh than | | CENTER - | | [...] ST. | [address] | [place], [place] | [phone] | | [facility] | | [address] | | | - LABORATORY | | [...] + | [facility] | [address] | [place] | [phone] | | [facility] | | [address] | | | - LABORATORY | | [...] ST. | [address] | [place], [place] | [phone] | | [facility] | | [address] | | | - LABORATORY | | | | + + + + + Surgical Pathology Exam (11/21/2017 12:00 AM PDT) + + | Specimen | + + | | + + + + + | Narrative | Performed At | + + + | SPECIMEN(S): A RIGHT 5TH MEATATRSAL SPECIMEN SOURCE: A. RIGHT [facility] | | 5TH MEATATRSAL CLINICAL HISTORY: 5th metatarsal diabetic | INCYTE | | infection. FINAL PATHOLOGIC DIAGNOSIS: Right 5th metatarsal: - | | | Bone with focal serous fat necrosis with associated acute and | | | chronic inflammation suggestive of osteomyelitis. JVR:[facility]:C2NR | | | MICROSCOPIC EXAMINATION: Histologic [...] in decal | | | STAT).. am:AMB:[facility] PERFORMING LABORATORY: The technical | | | component was performed by [facility], [address] [place] [address], | | | [facility] [address] (Chief Librarian Work With Blind: Khadra Gill MD; CLIA# | | | [id number]). Professional interpretation was performed by [facility] | | | [facility], [address] | | | [facility] [address] [place] [address] (Chief Librarian Work With Blind: Ambrosio | | | [place] Hall). Diagnostician: [...] | | | POC | | | [facility] | | | | | | MEDICAL [...] [address] | [place] | [phone] | | [facility] | | [address] | | | - LABORATORY | | [...] | | | | | | n Sheridan | | | | | + +---------+ [...] + + + | [facility] | [address] | [place] | [phone] | | [facility] | | [address] | | | - LABORATORY | | [...] + | Performed at: 01 - [facility] [place] [address], | REFERENCE LAB | | [place], [place] [id number] Plant Supervisor: Jurgen Costa MD, Phone: | NIKKI MONZON | | [phone] | | + + + + + + + + | Performing | Address | City/State/Zipcode | Phone Number | | Organization | | | | + + + + + | REFERENCE LAB | [address] | [place] [address] | [phone] | | [facility] | Drive [...] + | [facility] | [address] | [place] | [phone] | | [facility] | | [address] | | | - LABORATORY | | [...] [address] | [place] | [phone] | | [facility] | | [address] | | | - LABORATORY | | [address] | [place] | [phone] | | [facility] | | [address] | | | - LABORATORY | | [...] [address] | [place] | [phone] | | [facility] | | [address] | | | - LABORATORY | | [...] [address] | [place] | [phone] | | [facility] | | [address] | | | - LABORATORY | | [...] | | in | | | [facility] | | [...] + | [facility] | [address] | [place] | [phone] | | [facility] | | [address] | | | - LABORATORY | | [address] | [place] | [phone] | | [facility] | | [address] | | | - LABORATORY | | [...] [address] | [place] | [phone] | | [facility] | | [address] | | | - LABORATORY | | [...] [address] | [place] | [phone] | | [facility] | | [address] | | | - LABORATORY | | [...] 15 | 7 - 18 mg/dL | [facility] | | | | | | ST. [...] mL/min/1.73m2 | [facility] | | | [place] | RATE,ESTIMATED | | MEDICAL | | | | mL/min/1.56j2Tnir than | | CENTER - | | [...] + | [facility] | [address] | [place] | [phone] | | [facility] | | [address] | | | - LABORATORY | | [...] | | POC | | | [facility] | | | | | | [...] [address] | [place] | [phone] | | [facility] | | [address] | | | - LABORATORY | | [...] + | [facility] | [address] | [place] | [phone] | | [facility] | | [address] | | | - LABORATORY | | [...] | | | | aerogenesComment: | | [facility] | | | | Consider combination | [...] [address] | [place] | [phone] | | [facility] | | [address] | | | - LABORATORY | | [...] | | | POC | | | [facility] | | | | | | MEDICAL [...] + | [facility] | [address] | [place] | [phone] | | [facility] | | [address] | | | - LABORATORY | | [...] [address] | [place] | [phone] | | [facility] | | [address] | | | - LABORATORY | | [...] [address] | [place] | [phone] | | [facility] | | [address] | | | - LABORATORY | | [...] [address] | [place] | [phone] | | [facility] | | [address] | | | - LABORATORY | | [...] [address] | [place] | [phone] | | [facility] | | [address] | | | - LABORATORY | | [...] 16 | 7 - 18 mg/dL | [facility] | | | | | | [facility] | | | | | | MEDICAL | | | | | | CENTER - | | | | | | LABORATORY | | + + + + + + | Creatinine | 0.76 | 0.60 - 1.30 | [facility] | | | | | mg/dL | [facility] | | | | | | MEDICAL | | | | | | CENTER - | | | | | | LABORATORY | | + + + + + + | eGFR if not | >60Comment: GLOMERULAR | >=60 | [facility] | | | | FILTRATION | mL/min/1.73m2 | Mariana [facility] | | | [place] | RATE,ESTIMATED | | MEDICAL | | | | mL/min/1.71r6Nggy than | | CENTER - | | [...] + | [facility] | [address] | [place] | [phone] | | [facility] | | [address] | | | - LABORATORY | | [...] + | [facility] | [address] | [place] | [phone] | | [facility] | | [address] | | | - LABORATORY | | [...] | REFERENCE | | | | of [employer] | | LAB [facility] | | | | standards require a | | - [facility] | | | | culture to beperformed | | | | | | on CSF specimens | | | | | | submitted for bacterial | | | | | | antigen testing.(CAP | | | | | | [id number]) Urine | | | | | | [...] Ye Carranza, | REFERENCE LAB | | [place], [place] [id number] Plant Supervisor: Christ Deal MD, Phone: | NIKKI - NICOLÁS | | [phone] | | + + + + + + + + | Performing | Address | City/State/Zipcode | Phone Number | | Organization | | | | + + + + + | REFERENCE LAB | [address] | [place] [address] | [phone] | | [facility] | Drive [...] + | [facility] | [address] | [place], [place] | [phone] | | [facility] | | [address] | | | - LABORATORY | | [...] - 1.030 | [facility] | | | [place] | | | [facility] | | [...] [address] | [place] | [phone] | | [facility] | | [address] | | | - LABORATORY | | [...] | | | | | | use Laurel 10/325 if ordered. If | | | [...] | | | | last modification) on [facility] 11/24/17 | | | | [...] | | | | | | | 6344-9471 Use NIGHT DOSE for | | | | | | | doses scheduled: HS, 3AM, | | | | | | | Nighttime 3632-4907, | | | | | | + [...] scheduled: AC, NPO, Daytime | | | 8254-7310 Use NIGHT DOSE for | | | doses scheduled: HS, 3AM, | | | Nighttime 5714-3622, | | + +---+ | | | [...] | | | | | | | 8013-2402 Use NIGHT DOSE for | | | | | | | doses scheduled: HS, 3AM, | | | | | | | Nighttime 5512-5169, | | | | | | + [...] | | | | | Subcutaneous, ONCE, [facility] 11/24/17 at | | | | [...]
--- OUTSIDE RECORDS SUMMARY | ~2019-03-28 | XMS | Encounter Summary ---
Demographics + + + | Address | [address] | | | [place] [address] | + + + | Home Phone [...] Organization | [facility] | | | and [place] | + + + | Address | Unknown | + + + | Phone | Unavailable | + + + Support + + + + + | Name | Relationship | Address | Phone | + + + + + | Jessica Shepard | ECON | [address] | | | | | [place] | | | | | [address] | | + + + + + | Bel Solis | ECON | Unknown | | + + + + + | José Shepard | ECON | [place] | | | | | [address] | | + + + + + | Jessica Shepard | ECON | Unknown | | + + + + + Care Team Providers + +------+ + | Care Production Grip Name | Role | Phone | + +------+ + | Dian Lr NP | PCP | | + +------+ + Encounter Details +--------+ + + + + | Date | Type | Department | Care Team | Description | +--------+ + + + + | 07/31/ | Orders Only | [facility] | Conversion | | | 2019 | | INFECTIOUS DISEASE | Transaction, | | | | | [address] | Provider Unknown | | | | | [place] | [phone] | | | | | [address] | | | | | | [phone] | | | +--------+ + + + [...]
--- OUTSIDE RECORDS SUMMARY | ~2019-03-28 | XMS | Encounter Summary ---
Demographics + + + | Address | [address] | | | [place] [address] | + + + | Home Phone [...] | Organization | [facility] | | | and [place] | + + + | Address | Unknown | + + + | Phone | Unavailable | + + + Support + + + + + | Name | Relationship | Address | Phone | + + + + + | Jessica Amezquita | ECON | [address] | | | | | [place] | | | | | [address] | | + + + + + | Bel Solis | ECON | Unknown | | + + + + + | José Amezquita | ECON | [place] | | | | | [address] | | + + + + + | Jessica Amezquita | ECON | Unknown | | + + + + + Care Team Providers + +------+ + | Care Seat Cover Cutter Name | Role | Phone | + +------+ + PCP | Unavailable | + +------+ + Encounter Details +--------+ + + + + | Date | Type | Department | Care Team | Description | +--------+ + + + + | 04/21/ | Hospital | [facility] | Christina Da Silva | | | 2012 | Encounter | MED [facility] EM[facility] | MD Sunshine [address] | | | | | [place] [address] | [facility] | | | | | [place], [place] | [place] [address] | | | | | [address] | [phone] | | | | | [phone] | | | | | | | Cody Goodwin | | | | | | MD Evelia [address] | | | | | | [place], [place] | | | | | | [address] | | | | | | [phone] | | | | | | | [...] Performed At | + + + | Merged With [facility] | [place] | | Department [address] [facility] | [facility] | | [ rep [address]] [ rep [facility] | | [facility]] Signed | - IMAGING | | | | | Patient Name: REAGAN AMEZQUITA Physician: | | | BILL. : 1945 Age: 67 Sex: M Unit #: [id number] | | | Exam Date: 04/21/12 Location: ER | | | Report #: [id number] Page: | | | %(RAD)RES..mtdd.print.filter("pg") of %(RAD) | | | RES..mtdd.print.filter("tpg") | | | | | | Accession Number: [id number] | | | ABDOMEN ONE VIEW 04/22/2012 [...] Transcribed Date/Time: | | | 04/22/2012 18:46 Industrial Refrigeration Mechanic: | | | <<Signature on File>> | | | Rico | | | MD Jack04/23/12 0933 <Electronically signed by Rico Santiago MD> | | | Rico Santiago MD 04/22/12 1424 Industrial Refrigeration Mechanic: Abhishek | | | Dumhyggjzmxet36/02/13 1846 Cody Goodwin MD | | | | | + + + + + + + + | Performing | Address | City/State/Zipcode | Phone Number | | Organization | | | | + + + + + | [facility] | [address] | [place] | [phone] | | [facility] | | [address] | | | - IMAGING | | | | + + + + + CT Abdomen Pelvis w Contrast (04/22/2012 11:43 AM PST) + + | Specimen | + + | | + + + + + | Narrative | Performed At | + + + | Merged With [facility] | [place] | | Department [address] [facility] [place] | [facility] | | [ rep ct [address]] [ rep ct [facility] | | st zip] Signed | - IMAGING | | | | | Patient Name: REAGAN AMEZQUITA Jeovany Physician: | | | BILL.[birth year] : 1945 Age: 67 Sex: M Unit #: [id number] | | | Exam Date: 04/21/12 Location: ER | | | Report #: [id number] Page: | | | %(RAD)RES..mtdd.print.filter("pg") of %(RAD) | | | RES..mtdd.print.filter("tpg") | | | | | | Accession Number: [id number] | | | CT SCAN OF THE [...] | | PRELIMINARY REPORT WAS SENT BY [facility] AT 10:02 P.M. ON | | | 04/21/12. Dictated Date/Time: 04/22/2012 11:43 | | | Transcribed Date/Time: 04/22/2012 15:29 Industrial Refrigeration Mechanic: | | | <<Signature on File>> | | | Rico | | | MD Jack04/23/12 0933 <Electronically signed by Rico Santiago MD> | | | Rico Santiago MD 04/22/12 1143 Industrial Refrigeration Mechanic: Abhishek | | | Poawxshvxxxni82/02/13 1529 Cody Goodwin MD | | | | | + + + + + + + + | Performing | Address | City/State/Zipcode | Phone Number | | Organization | | | | + + + + + | [facility] | [address] | [place] | [phone] | | [facility] | | [address] | | | - IMAGING | | [...] + | [facility] | [address] | [place] | [phone] | | [facility] | | [address] | | | - LABORATORY | | | | + + + + + | [facility] | [address] | [place] | | | [facility] | | [address] | | | - LABORATORY | | [...] + | [facility] | [address] | [place] | [phone] | | [facility] | | [address] | | | - LABORATORY | | | | + + + + + | [facility] | [address] | [place] | | | [facility] | | [address] | | | - LABORATORY | | | | + + + + + documented in this encounter Visit Diagnoses Not on filedocumented in this encounter
--- OUTSIDE RECORDS SUMMARY | ~2019-03-28 | XMS | Encounter Summary ---
Demographics + + + | Address | [address] | | | [place] [address] | + + + | Home Phone [...] Organization | [facility] | | | and [place] | + + + | Address | Unknown | + + + | Phone | Unavailable | + + + Support + + + + + | Name | Relationship | Address | Phone | + + + + + | Jessica Shepard | ECON | [address] | | | | | [place] | | | | | [phone] | | + + + + + | Bel Solis | ECON | Unknown | | + + + + + | José Shepard | ECON | [place] | | | | | [phone] | | + + + + + | Jessica Shepard | ECON | Unknown | | + + + + + Care Team Providers + +------+ + | Care Visitor Use Assistant Name | Role | Phone | + +------+ + | Dian Lr NP | PCP | | + +------+ + Encounter Details +--------+ + + + + | Date | Type | Department | Care Team | Description | +--------+ + + + + | 05/14/ | Hospital | [facility] | Marlin Mckeon | Received intravenous | | 2017 - | Encounter | [facility] | MD [place] [address] | tissue plasminogen | | | | CARE FLO[address] [place] | activator (tPA) in | | 05/19/ | | [place] | [address] | emergency | | 2017 | | [facility] [place] | | department; Acute | | | | [address] | | left hemiparesis | | | | [phone] | | ([facility]); 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 | | | | | | with hyperglycemia, | | | | | | with long-term | | | | | | current use of | | | | | | insulin ([facility]); | | | | | | Ischemic stroke | | | | | | diagnosed during | | | | | | current admission | | | | | | ([facility]); 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, with | | | | | | long-term current | | | | | | use of insulin | | | | | | ([facility]); Moderate | | | | | | protein-calorie | | | | | | malnutrition ([facility]); | | | | | | Gastroesophageal [...] Date of Service: 05/19/16 105 Status: Signed Paper Guillotine Operator: Jeff Corley DO (Physician) [facility] Service: Hospitalist Discharge Summary Date of Admission: [...] edema Skin - dry no erythema Disposition: correction Condition: Stable Code Status: Full Code Discharge [...] Tolerated Follow up: Saurabh Fritz, DO [address] [facility] [address] [place] [address] Medication List START taking these medications atorvastatin [...] Date of Service: 05/19/16 1231 Status: Signed Paper Guillotine Operator: Sandra Cedillo RN (Registered Nurse) Report given to ELLIOT Márquez at [facility]. Pt aware of transfer plan. Facility van to pick pt up at 1300. onver elder Transaction, Provider Unknown - 05/19/2016 11:41 AM PST Case Management by Lisa Hogan RN at 05/19/16 1141 Author: Lisa Hogan RN Service: (none) Author Type: Registered Nurse Filed: 05/19/16 1142 Date of Service: 05/19/16 1141 Status: Signed Paper Guillotine Operator: Lisa Hogan RN (Registered Nurse) 05/19/16 1128 Anticipated Disposition Facility Type nursing home facility Discharge Appointment Time 1300 Medicare Important Message (ROS) Given Senior Care Facility Other (comment) ([facility]) Disposition: [facility] Transportation: W/C van provided by facility All orders, signed AVS, and prescriptions have been faxed All DC paperwork completed Patient and family in agreement with discharge plan Medicare important message (Given or N/A): yes Tc to spouse Jessica who agrees with d/c plan to [facility]. Negar onver elder Transaction, Provider Unknown - 05/19/2016 11:40 AM PST Therapy Progress Note by Theresa Gonzales PT at 05/19/16 1140 Author: Theresa Gonzales PT Service: (none) Author Type: Physical Therapist Filed: 05/19/16 1140 Date of Service: 05/19/16 1140 Status: Signed Paper Guillotine Operator: Theresa Gonzales PT (Physical Therapist) 05/19/16 [...] Author: HARIS Lemon Service: (none) Author Type: Information Systems Professor Filed: 05/19/16 1114 Date of Service: 05/19/16 1102 Status: Signed Paper Guillotine Operator: HARIS Lemon (Information Systems Professor) 05/19/16 1100 Discharge Planning Evaluation Admitting Diagnosis CVA, TPA given Anticipated Disposition Facility Type nursing home facility [facility] Facility Other (comment) ([facility]) SHOES HAND SEWER p/c Cheryl Bashir [facility] Coordinator, states she received phone call from [facility], asking for authorization. SHOES HAND SEWER assisted Pt and Pt (Jessica Shepard [phone]) regarding VA GEC form, assisted with form and faxed to [facility] Coordinator - Cheryl Bashir [phone] ext. [phone]. During filli ng out GEC form, Pt stated "We wanted [facility] over [facility], but we were told [facility] was denied by [place]." SHOES HAND SEWER provided choice of accepting facili ties. SHOES HAND SEWER p/c Carlos with [facility] states they will accept Pt, they are VA contracted, if Pt choice. SHOES HAND SEWER met with Negar ZARATE regarding the discrepancy of information about Pt choice. SHOES HAND SEWER with Negar ZARATE met with Pt and Pt (Jessica Shepard) regarding choice, after lengthy discussion, they went back and forth regarding facilities, Pt finally chose [facility]. DCP: [facility] NAOMY GALAN, Information Systems Professor [phone] cell onver elder Transaction, Provider Unknown - 05/19/2016 8:06 AM PST Case Management by Lisa Hogan RN at 05/19/16 0806 Author: Lisa Hogan RN Service: (none) Author Type: Registered Nurse Filed: 05/19/162 Date of Service: 05/19/16805 Status: Addendum Paper Guillotine Operator: Lisa Hogan RN (Registered Nurse) Related Notes: Original Note by Lisa Hogan RN (Registered Nurse) filed at 05/19/16 082 1 0800:Tc to Carlos at [facility]/[phone] re VA benefits and acceptance. Tc to Jessica, she states she rather have pt go to [facility] and not [facility]. Went to meet with pt and he spoke to Jessica over the phone and agrees with going to [facility]. Tc to Jimmy at [facility], [facility] re acceptance. 1030: per Jimmy, they can transport pt today at 1300 via w/c van. Jimmy states they are VA contracted and pt does not have to move to another [place] facility after the 20 days of medicar e have . Pt can be transitioned to VA on the if the [facility] paperwork is submitt ed now to the VA. Notified pt and spouse Jessica as this was their concern. SHOES HAND SEWER Naomy was given referral to assist in completing the GE process. Faxed PT/MD notes to [facility] [place] coordinator per her request. Notified primary RN and Dr Corley about d/c. Negar onver elder Transaction, Provider Unknown - 05/19/2016 5:25 AM PST Nurse Progress Note by Hero You RN at 05/19/16524 Author: Hero You RN Service: (none) Author Type: Registered Nurse Filed: 05/19/16524 Date of Service: 05/19/16524 Status: Signed Paper Guillotine Operator: Hero You RN (Registered Nurse) No acute changes from previous end of shift report. Will continue monitoring. Hero You RN 05/19/2016 onver elder Transaction, Provider Unknown - 05/18/2016 6:32 PM PST Nurse Progress Note by Sandra Cedillo RN at 05/18/161831 Author: Sandra Cedillo RN Service: (none) Author Type: Registered Nurse Filed: 05/18/161833 Date of Service: 05/18/161831 Status: Signed Paper Guillotine Operator: Sandra Cedillo RN (Registered Nurse) Pt [...] Date of Service: 05/18/16 1252 Status: Signed Paper Guillotine Operator: Jeff Corley DO (Physician) PROGRESS NOTE [...] Problem: Ischemic stroke diagnosed during current admission ([facility]) Active Problems: Received intravenous tissue plasminogen activator (tPA) in emergency department Acute left hemiparesis ([facility]) Type 2 diabetes mellitus with hyperglycemia, with long-term current use of insulin ([facility]) Type 2 diabetes mellitus with diabetic neuropathy, with long-term current use of insulin ([facility]) Moderate protein-calorie malnutrition (HCC) GERD (gastroesophageal reflux disease) Hypokalemia Essential hypertension, benign Length of stay: 4 days DVT prophylaxis: enox Code status: full code Disposition: inpatient SUBJECTIVE Patient seen/examined with rounding team, lying in bed, had an extended conversation with c ase toy department manager about which SNF's/towns he liked and [...] Date of Service: 05/18/16 1150 Status: Signed Paper Guillotine Operator: Jenn Richey RD (Registered Dietitian) 05/18/16 1057 [...] Physical Findings Digestive System (Mouth to Rectum) NARCOTICS INVESTIGATOR following for dysphagia Anthropometrics Weight change Wt [...] Date of Service: 05/18/16 1131 Status: Addendum Paper Guillotine Operator: Lisa Hogan RN (Registered Nurse) Related Notes: Original Note by Lisa Hogan RN (Registered Nurse) filed at 05/18/16 154 2 1000: Tc from Shara([phone] ext [phone]) with VA "Gec" program regardign snf placemen t. Per Ly, pt needs to go to a VA contracted snf if he wants the VA to provide for copay after his medicare coverage no longer pays 100%. Ly statesthese are some available VA c ontracted snfs: [facility], [facility], [facility], [facility]. [facility] a nd [place] are not contracted with them. Per Ly, if paperwork(PT/MD notes and GEC form ) is submitted now, they can admit pt to a VA contracted snf under VA benefits. Informed Salo wang will discuss with pt and spouse Jessica. Per email from Sheila with IPR, pt declined for IPR. 1130:Tc to Jinny/[facility], she states pt operation shift supervisor nurse's note, pt has been restless an d onboarding specialist light continously and on IV fentanyl, she is not sure she has the man power to acc ept pt. 1200: Tc to spouse Jessica, , [facility] regarding snf placement. Met with pt regarding snf and VA benefits. Pt states he will discuss with spouse, but would consider going to [facility]. Sent e-referrals. Pt states Jessica will be here this evening and would like to discuss with CM options. Informed pt [facility]) has accepted pt but they are not VA contracted. 1300: per rounding with pt, he wants referral sent to [facility] too. Referral sent. Referral sent to HARIS Nichols to assist with "GEC" paperwork for the VA 1500: Tc to Carlos with [facility]([phone]), he thinks pt can be accepted when medically roseann dy, but first have to review pt's VA benefits to make sure rehab is covered. Tc to Jessica again,([phone]) left [facility] about rehab placement. Attempted to call Shonda reilly at work,[phone], busy signal. 1530: per Jimmy at [facility], they can accept pt when he is medically ready and if he wants to go there. Notified pt Dunia friedman Transaction, Provider Unknown - 05/18/2016 10:37 AM PST Progress Notes by Khadra Osman RD, DANNY at 05/18/16 1037 Author: Khadra Osman RD, CDE Service: (none) Author Type: Cook Fry Filed: 05/18/16 1044 Date of Service: 05/18/16 1037 Status: Signed Paper Guillotine Operator: Khadra Osman RD, CDE (Cook Fry) Met with pt. Reports he's had diabetes for 6 years. He gets all medications through the [facility] A for his diabetes. States his of 49 years also has insulin dependent [facility] [...] his blood sugar. Reports he's been through [employer] es education classes two times - but [...] the VA. Khadra Osman RD, MPH, CDE, Cook Fry 05/18/2016 10:43 AM onver elder Transaction, Provider Unknown - 05/18/2016 4:36 AM PST Nurse Progress Note by Hero You RN at 05/18/16435 Author: Hero You RN Service: (none) Author Type: Registered Nurse Filed: 05/18/167 Date of Service: 05/18/16435 Status: Signed Paper Guillotine Operator: Hero You RN (Registered Nurse) Pts [...] 05/17/161701 Date of Service: 05/17/161699 Status: Signed Paper Guillotine Operator: Sandra Cedillo RN (Registered Nurse) Pt [...] Date of Service: 05/17/16 1500 Status: Signed Paper Guillotine Operator: Cheryl Rodney PT (Physical Therapist) 05/17/16 1500 PT Last Visit PT Received On 05/17/16 Reason for Treatment Stroke Requires PT Follow Up Yes Follow up PT Only? Yes (complexity) Assistance Required 2 person Tight Barrel Inspector Needed No Precautions UE Precaution(s) LUE Precautions/WB [...] lift for transfer back to bed - RN/GOLF COURSE MECHANIC aware of pt positioning/abilities and need [...] Barriers to Discharge Cognitive Deficits Impacting Functional Grundy;Self-care Defici ts Impacting Functional Grundy;Physical Deficits Impacting Functional Grundy;Malik rological Impairment (see comment) Recommendation Comments Pt [...] Notes by Jeff Corley DO at 05/17/16 2128 Author: Jeff Corley DO Service: Hospitalist Author Type: Physician Filed: 05/17/16 1600 Date of Service: 05/17/16 1238 Status: Addendum Paper Guillotine Operator: Jeff Corley DO (Physician) Related Notes: Original Note by Jeff Corley DO (Physician) filed at 05/17/16 3791 PROGRESS NOTE 05/17/2016 for Reagan Shepard on the hospitalist service. ASSESSMENT & PLAN Acute CVA S/p tPA, monitored in ICU, neuro stable. Continue aspirin, statin. BP has been in normal range, not an antihypertensives here or at home. Therapies working with patient, hope to transfer to [facility] pending insurance authorization (me mccann). May [...] Problem: Ischemic stroke diagnosed during current admission ([facility]) Active Problems: Received intravenous tissue plasminogen activator (tPA) in emergency department Acute left hemiparesis (HCC) Type 2 diabetes mellitus with hyperglycemia, with long-term current use of insulin (HCC) Type 2 diabetes mellitus with diabetic neuropathy, with long-term current use of insulin ([facility]) Moderate protein-calorie malnutrition (HCC) GERD (gastroesophageal reflux [...] Date of Service: 05/17/16 1144 Status: Addendum Paper Guillotine Operator: Lisa Hogan RN (Registered Nurse) Related Notes: Original Note by Lisa Hogan RN (Registered Nurse) filed at 05/17/16 130 3 Per rounding with pt, he is A&O x4. Pending IPR. Sent email to Sheila at [facility] for status. Left VM for PT regarding f/u with pt 1230:Tc to spouse Jessica regarding snf placement in case IPR declines pt. Jessica upset as s he thought "doctor" had told her son yesterday that pt was a good candidate for IPR and was accepted to [facility]. Informed Jessica Alicia has not made decision yet as he is "following pt". Jessica wants referrals sent to [place] and [place]. Jessica asks that we dont mention to pt snf placement yet until a decision i s made about IPR. Negar onver elder Transaction, Provider Unknown - 05/17/2016 10:05 AM PST Therapy Progress Note by TOLU Xiao/Parminder at 05/17/16 1005 Author: GABE Xiao Service: (none) Author Type: Occupational Therapist Filed: 05/17/16 1240 Date of Service: 05/17/16 1005 Status: Signed Paper Guillotine Operator: GABE Xiao (Occupational Therapist) 05/17/16 1005 OT Last Visit OT Received On 05/17/16 Reason for Treatment Stroke Requires OT Follow Up Awaiting tx order OT Eval/Reassessment Date 05/17/16 Assistance Required 2 person Tight Barrel Inspector Needed No Family/Caregiver Present No Precautions Other Precautions high fall risk, L hemiparesis Other Comments Comments OT eval orders received/verified. Pt willing to participate in OT this AM. Chart r ramon-relevant to OT evaluation: Left sided weakness, s/p IV rtPA with little improvement, due to right bogdan infarction, most likely [id number]-[id number]-facrna in etiology related to uncontrol led DM; [...] Days Recommendation Recommendation Rehab consult Equipment Recommended Health Underwriter;Bedside commode;Elastic shoe laces;HHSH OT Ready for Discharge [...] note for PLOF Prior Function Level of Grundy Independent with functional mobility;Independent with ADLs;Independe nt [...] equipment (bed level) LE Dressing Adaptive Equipment Health Underwriter;Dressing stick Arm Goals Pt Will Tolerate SROM [...] order Recommendation Recommendation Rehab consult Equipment Recommended Health Underwriter;Bedside commode;Elastic shoe laces;HHSH OT Ready for Discharge [...] stroke, neurological resource center guide Moderate - 94825 High - 27492 History Expanded review of medical records; additional review of physical, cognitive, or ps ychosocial skills Examination Identification of 5 or more performance deficits Decision Making Presents with comorbidities; significant modification of tasks or assistan ce is needed to complete eval Clinical Decision Making Complexity: Moderate [id number] onver elder Harris Provider Unknown - 05/17/2016 5:44 AM PST Nurse Progress Note by Hero You RN at 05/17/1644 Author: Hero You RN Service: (none) Author Type: Registered Nurse Filed: 05/17/16 0550 Date of Service: 05/17/16543 Status: Signed Paper Guillotine Operator: Hero You RN (Registered Nurse) Pts [...] 05/16/161652 Date of Service: 05/16/161651 Status: Addendum Paper Guillotine Operator: Teena Matthew RN (Registered Nurse) Related [...] 1514 Date of Service: 05/16/161511 Status: Signed Paper Guillotine Operator: Wing Nina Alicia MD (Physician) Patient seen [...] Calculation (Bezet) 05/14/2016 455 Final Calculated P Sav[place] 05/14/2016 28 Final Calculated R [place] 05/14/2016 -3 Final Calculated T [place] 05/14/2016 38 Final Diagnosis 05/14/2016 Final Value:Normal [...] De La Garza Service: (none) Author Type: Restuarant Crew Worker Filed: 05/16/16 1213 Date of Service: 05/16/16 1205 Status: Signed Paper Guillotine Operator: HARIS De La Garza (Restuarant Crew Worker) 05/16/16 1201 Discharge Planning Evaluation Admitting [...] Yes Name of Pharmacy [facility] [place] [place] [facility] [place] Previous home health equipment Yes;Comment (Pt uses a cane at baseline) Vascular access device No Ostomy/Drains/Appliances (TBD) Anticipated Disposition Facility Type Other (Comment) Met with patient Reagan Shepard and discussed discharge planning. 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 The patient resides with his in [facility]. The patient was alert and [...] disease, and TBI who initially presented to [facility] with left facial droop and left-sided weakness. He had an episode of urinary incontinence and fall, EMS called and patient was brought to [facility] ED. " "Patient is also complaining of a 3-week history of intermittent left-sided weakness and fal ls. He uses a cane for ambulation." Patient's PCP is: Patient's insurance: [employer] & Medicare Coverage concerns: no Medication coverage/concerns: no Rx Bedside Delivery: Preferred Pharmacy: [facility] or [facility] resources utilized / needed: TBD Assistance in transportation: Spouse - Jessica Shepard [phone] or work [phone] Identification of any specific education / training: no Barriers to Discharge / Alternative housing needed: TBD Anticipated DCP: Home DWIGHT De La Garza John Hill MD - 05/16/2016 8:26 AM PST Progress Notes by John Murdock MD at 05/16/16825 Author: John Murdock MD Service: (none) Author Type: Physician Filed: 05/16/16 1131 Date of Service: 05/16/16825 Status: Addendum Paper Guillotine Operator: John Murdock MD (Physician) Related Notes: Original Note by John Murdock MD (Physician) filed at 05/16/16 1108 [facility] Service: Hospitalist Progress Note Pt: Reagan Shepard AGE/SEX: 71 y.o. male : 1945 ROOM: [facility]/7124-1 REQUESTING PROVIDER: John Murdock MD TODAY'S DATE: 05/16/2016 Hospital Day: LOS: 2 days + past medical history of DM 2 with neuropathy, DDD and TBI Transfer from [facility] fter seen there with left facial droop and left-sided weakness.,episode of urinary incontin ence and fall, .Acute infarction in the right bogdan, CT head unremarkablMRI e, no ICH. As N IHSS score of 14 TPA Was liza marlowfer to [facility] for further care SUBJECTIVE aprt from witness [...] hours. No results for input(s): PHART, PO2ART, UXF6ESI, C2UEYJYL, BEART in the last 168 hours. No results for input(s): APTT, INR, PTT in the last 168 hours. No results for input(s): TSH, T3FREE, FREET4 in the last 168 hours. No results for input(s): CKTOTAL, TROPONINI, TROPONINT, CKMBINDEX in the last 168 hours. PROBLEM LIST Principal Problem: Ischemic stroke diagnosed during current admission ([facility]) Active Problems: Received intravenous tissue plasminogen activator (tPA) in emergency department Acute left hemiparesis ([facility]) Type 2 diabetes mellitus with hyperglycemia, with long-term current use of insulin (HCC) Type 2 diabetes mellitus with diabetic neuropathy, with long-term current use of insulin (HCC) Moderate protein-calorie malnutrition (HCC) GERD (gastroesophageal reflux disease) Hypokalemia Essential hypertension, benign ASSESSMENT & PLAN Principal Problem: Ischemic stroke-Acute left hemiparesis ([facility]) Ischemic stroke s/p TPA (05/14) ASA statin [...] this point his current strok are 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 2- [...] per patient and no documen tation), recommend oysterman Holter (30 days). 8. General care including [...] 05/16/16514 Date of Service: 05/16/16512 Status: Signed Paper Guillotine Operator: Hero You RN (Registered Nurse) Pt [...] 05/15/161938 Date of Service: 05/15/161930 Status: Addendum Paper Guillotine Operator: Sandra Cedillo RN (Registered Nurse) Related [...] (none) Author Type: Physical Therapist Filed: 05/15/16 2736 Date of Service: 05/15/16 1242 Status: Signed Paper Guillotine Operator: Douglas Coelho PT (Physical Therapist) 05/15/16 1242 PT Last Visit PT Received On 05/15/16 Reason for Treatment Stroke Requires PT Follow Up Awaiting tx order Follow up PT Only? Yes (complexity) PT Eval/Reassessment Date 05/15/16 Assistance Required 2 person Tight Barrel Inspector Needed No Home Environment Type of Home Home two story Home Exterior Layout Entry steps none Home Interior Layout Flight one;Rail on L ascending;Lives on main level with bedroom/bathro om;Walker accessible Bathroom Shower/Tub Tub/shower unit Bathroom Toilet Standard Bathroom Equipment Hand-held shower head;Tub transfer bench Bathroom Accessibility Accessible via walker Home Equipment Walker 4 wheeled;Cane single point Prior Function Level of Grundy Independent with functional mobility;Independent with ADLs;Independe nt [...] Barriers to Discharge Cognitive Deficits Impacting Functional Grundy;Physical Deficit s Impacting Functional Grundy;Self-care Deficits Impacting Functional Grundy;Malik rological Impairment (see comment) Recommendation Comments pt. needs Max x 2 for transfers and mobility and should benefit fro m SNF to improve strength, endurance and functional mobility 05/15/16 1242 PT Last Visit PT Received On 05/15/16 Reason for Treatment Stroke Requires PT Follow Up Awaiting tx order Follow up PT Only? Yes (complexity) PT Eval/Reassessment Date 05/15/16 Assistance Required 2 person Tight Barrel Inspector Needed No Precautions UE Precaution(s) LUE Precautions/WB [...] Barriers to Discharge Cognitive Deficits Impacting Functional [place];Physical Deficit s Impacting Functional [place];Self-care Deficits Impacting Functional [place];Malik rological Impairment (see comment) Recommendation Comments pt. needs Max x 2 for transfers and mobility and should benefit fro m SNF to improve strength, endurance and functional mobility Low - 61776 Moderate - 85683 High - 31133 History no personal factors &/or comorbidities 1-2 personal factors &/or comorbidities 3 o r more personal factors &/or comorbidities Examination 1-2 elements 3 elements 4 or more elements Clinical Presentation stable evolving unstable Clinical Decision Making Complexity: Low 14007 Moderate 92871 High 88917 Viviana Ferrer ARNP - 05/15/2016 9:41 AM PSTFormatting of this note might be different from stephanie brown original. Progress Notes by RUBEN Atkins at 05/15/16 0878 Author: RUBEN Atkins Service: Energy And Conservation Technician Author Type: Advanced Registered January rooney Practitioner Filed: 05/15/16 9303 Date of Service: 05/15/1647 Status: Signed Paper Guillotine Operator: RUBEN Atkins (Advanced Registered Nurse Practitioner) [facility] Service: Energy And Conservation Technician Progress Note [facility] 71 [facility] [...] disease, and TBI who initially presented to [facility] with left facial droop and left-sided weakness. He had an episode of uri nary incontinence and fall, EMS called and patient was brought to [facility] ED. Patient was last seen normal on [...] of 14. Follow up on arrival to [facility] 9. Dr. Tova marin Keep BP < 180/105 mmHg, brain MRI 24 hours post-TPA with no e/o hemorrhage. Keep normoth ermic, normoglycemic. PT/OT/NARCOTICS INVESTIGATOR following. ? cardioembolic as cause for ischemic [...] On room air. GI/NUTRITION: Moderate protein-calorie malnutrition: [place] thick liquids per NARCOTICS INVESTIGATOR recs. GERD: on protonix at home. 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 2- [...] per patient and no documen tation), recommend senior living Holter (30 days). 9. Consult PT, OT, [...] 05/14/161528 Date of Service: 05/14/161528 Status: Signed Paper Guillotine Operator: Pretty Dhillon RD, CD (Registered Dietitian) 05/14/161516 [...] Fluid / Beverage Intake Oral Fluids Amount [place] thick liquids ad bryant. Ok for 1 [...] subcutaneous fat. Digestive System (Mouth to Rectum) NARCOTICS INVESTIGATOR following for dysphagia. Skin Intact. Anthropometrics Weight [...] Estimated Energy Needs Total Energy Estimated Needs 3819-0488 kcal/day Method for Estimating Needs 25-30 kcal/kg admit wt (84.7 kg) Estimated Protein Needs Total Protein Estimated Needs 102-127 g protein/day Method for Estimating Needs 1.2-1.5 g protein/kg admit wt (84.7 kg) Recommendations Recommended energy needs Recommend adding diabetic diet restrictions to current NARCOTICS INVESTIGATOR diet or nigel to help optimize glycemic [...] Therapy Progress Note by Kate Hale MA CCC-NARCOTICS INVESTIGATOR at 05/14/16911 Author: Kate Hale MA CCC-NARCOTICS INVESTIGATOR Service: (none) Author Type: Speech and Language Patholo gist Filed: 05/14/16 0945 Date of Service: 05/14/16911 Status: Signed Paper Guillotine Operator: Kate Hale MA CCC-NARCOTICS INVESTIGATOR (Speech and Language Pathologist) 05/14/16911 NARCOTICS INVESTIGATOR Last Visit NARCOTICS INVESTIGATOR Received On 05/14/16 Requires NARCOTICS INVESTIGATOR Follow Up Yes Swallowing Assessment Eval Swallowing [...] 1/2 trials by cup, none by spoon) [place] Presentation Cup;Self Fed Oral WFL Pharyngeal Phase [...] Larynge al Elevation Recommendations Liquids Consistency Recommendations [place] thick;Ice chips for oral comfort Diet Consistency [...] diet textures, no awareness until cued by NARCOTICS INVESTIGATOR. At this time, recommen d puree diet [...] monitoring;Patient/Family education; Assessment for upgrade Dysphagia Goals Independent Living Specialist Goals Safe/efficient oral intake Pt will have safe/efficient oral intake Thin liquids;Mechanical soft diet;With min cues;Ne w/revised goal Short Term Goals Tolerate liquid consistency Pt will tolerate tolerate liquid consistency [place] thick liquids;with 1:1 supervision;New /revised goal onver elder Transaction, Provider Unknown - 05/14/2016 9:12 AM PST Therapy Progress Note by Zenon Schaeffer PT at 05/14/16 0912 Author: Zenon Schaeffer PT Service: Physical Medicine and Rehab Author Type: Physical Therapist Filed: 05/14/16 1556 Date of Service: 05/14/16911 Status: Signed Paper Guillotine Operator: Zenon Schaeffer PT (Physical Therapist) 05/14/16 09 [...] 05/14/16556 Date of Service: 05/14/16556 Status: Signed Paper Guillotine Operator: Iggy Lee RPH (Pharmacist) Pharmacy will [...] | | | Fingerstick | performed at [facility];[address] | | LAB | | | | [address];[place] | | | | | | [address] | | | | + + + [...] | | | Fingerstick | performed at [facility];[address] | | LAB | | | | [address];[place] | | | | | | [address] | | | | + + + [...] | | | Fingerstick | performed at [facility];[address] | | LAB | | | | [address];[place] | | | | | | [address] | | | | + + + [...] | | | Fingerstick | performed at [facility];[address] | | LAB | | | | [address];[place], [place] | | | | | | [address] | | | | + + + [...] | | | Fingerstick | performed at [facility];[address] | | LAB | | | | [address];[place] | | | | | | [address] | | | | + + + [...] | | | Fingerstick | performed at [facility];[address] | | LAB | | | | [address];[place], [place] | | | | | | [address] | | | | + + + [...] EXTERNAL | | | | performed at [facility], [address] | K/uL | LAB | | | | [address], | | | | | | [place] [address] | | | | + + + + + + | RED CELL | 4.96Comment: Testing | 4.20 - 5.70 | EXTERNAL | | | COUNT | performed at [facility], [address] | M/uL | LAB | | | | [address], | | | | | | [place] [address] | | | | + + + + + + | Hgb | 14.1Comment: Testing | 13.2 - 17.0 | EXTERNAL | | | | performed at [facility], [address] | g/dL | LAB | | | | [address], | | | | | | [place] [address] | | | | + + + + + + | Hematocrit, | 40.8Comment: Testing | 39.0 - 50.0 % | EXTERNAL | | | POC | performed at [facility], [address] | | LAB | | | | [address], | | | | | | [place] [address] | | | | + + + + + + | MCV | 82.3Comment: Testing | 80.0 - 100.0 fl | EXTERNAL | | | | performed at [facility], [address] | | LAB | | | | [address], | | | | | | [place] [address] | | | | + + + + + + | MCH | 28.5Comment: Testing | 27.0 - 34.0 pg | EXTERNAL | | | | performed at [facility], [address] | | LAB | | | | [address], | | | | | | [place] [address] | | | | + + + + + + | MCHC | 34.6Comment: Testing | 32.0 - 35.5 | EXTERNAL | | | | performed at [facility], [address] | g/dL | LAB | | | | [address], | | | | | | [place] [address] | | | | + + + + + + | RDW-CV | 42.0Comment: Testing | 37 - 53 fl | EXTERNAL | | | | performed at [facility], [address] | | LAB | | | | [address], | | | | | | [place] [address] | | | | + + + + + + | Platelet | 219Comment: Testing | 150 - 400 K/uL | EXTERNAL | | | Count | performed at [facility], [address] | | LAB | | | Plasma | [address], | | | | | | [place] [address] | | | | + + + + + + | MPV | 8.6Comment: Testing | fl | EXTERNAL | | | | performed at [facility], [address] | | LAB | | | | [address], | | | | | | [place] [address] | | | | + + + + + + | Differentia | AUTOMATEDComment: | | EXTERNAL | | | l Type | Testing performed at | | LAB | | | | [facility], [address] | | | | | | [place] | | | | | | [address] | | | | + + + + + + | % Segmented | 65.52Comment: Testing | % | EXTERNAL | | | | performed at [facility], [address] | | LAB | | | Neutrophils | [address], | | | | | | [place] [address] | | | | + + + + + + | % | 22.13Comment: Testing | % | EXTERNAL | | | Lymphocytes | performed at [facility], [address] | | LAB | | | | [address], | | | | | | [place] [address] | | | | + + + + + + | % Monocytes | 9.16Comment: Testing | % | EXTERNAL | | | | performed at [facility], [address] | | LAB | | | | [address], | | | | | | [place] [address] | | | | + + + + + + | % | 2.44Comment: Testing | % | EXTERNAL | | | Eosinophils | performed at [facility], [address] | | LAB | | | | [address], | | | | | | [place] [address] | | | | + + + + + + | % Basophils | 0.75Comment: Testing | % | EXTERNAL | | | | performed at [facility], [address] | | LAB | | | | [address], | | | | | | [place] [address] | | | | + + + + + + | Absolute | 6.91Comment: Testing | 1.90 - 7.40 | EXTERNAL | | | Segmented | performed at [facility], [address] | K/uL | LAB | | | Neutrophils | [address], | | | | | | [place] [address] | | | | + + + + + + | Absolute | 2.33Comment: Testing | 1.00 - 3.90 | EXTERNAL | | | Lymphocytes | performed at [facility], [address] | K/uL | LAB | | | | [address], | | | | | | [place] [address] | | | | + + + + + + | Absolute | 0.97 (H)Comment: Testing | 0.00 - 0.80 | EXTERNAL | | | Monocytes | performed at [facility], [address] | K/uL | LAB | | | | [address], | | | | | | [place] [address] | | | | + + + + + + | Absolute | 0.26Comment: Testing | 0.00 - 0.50 | EXTERNAL | | | Eosinophils | performed at [facility], [address] | K/uL | LAB | | | | [address], | | | | | | [place] [address] | | | | + + + + + + | Absolute | 0.08Comment: Testing | 0.00 - 0.10 | EXTERNAL | | | Basophils | performed at [facility], [address] | K/uL | LAB | | | | [address], | | | | | | [place] [address] | | | | + + + [...] EXTERNAL | | | | performed at [facility], [address] | | LAB | | | | [address], | | | | | | [place] [address] | | | | + + + [...] EXTERNAL | | | | performed at [facility], [address] | | LAB | | | | [address], | | | | | | [place] [address] | | | | + + + [...] EXTERNAL | | | | performed at [facility], [address] | mmol/L | LAB | | | | [address], | | | | | | [place] [address] | | | | + + + + + + | K | 4.1Comment: Testing | 3.5 - 4.9 | EXTERNAL | | | | performed at [facility], [address] | mmol/L | LAB | | | | [address], | | | | | | [place] [address] | | | | + + + + + + | Cl | 104Comment: Testing | 99 - 109 mmol/L | EXTERNAL | | | | performed at [facility], [address] | | LAB | | | | [address], | | | | | | [place] [address] | | | | + + + + + + | CO2 | 27Comment: Testing | 23 - 32 mmol/L | EXTERNAL | | | | performed at [facility], [address] | | LAB | | | | [address], | | | | | | [place] [address] | | | | + + + + + + | Anion Gap | 12Comment: Testing | 5 - 20 mmol/L | EXTERNAL | | | | performed at [facility], [address] | | LAB | | | | [address], | | | | | | [place] [address] | | | | + + + + + + | Glucose, | 143 (H)Comment: Testing | 65 - 99 mg/dL | EXTERNAL | | | Fasting | performed at [facility], [address] | | LAB | | | | [address], | | | | | | [place] [address] | | | | + + + + + + | BUN | 9Comment: Testing | 8 - 25 mg/dL | EXTERNAL | | | | performed at [facility], [address] | | LAB | | | | [address], | | | | | | [place] [address] | | | | + + + + + + | Creatinine | 0.6 (L)Comment: Testing | 0.70 - 1.30 | EXTERNAL | | | | performed at [facility], [address] | mg/dL | LAB | | | | [address], | | | | | | [place] [address] | | | | + + + + + + | BUN/Creatin | 15Comment: Testing | | EXTERNAL | | | ine Ratio | performed at [facility], [address] | | LAB | | | | [address], | | | | | | [place] [address] | | | | + + + + + + | Calcium | 8.6Comment: Testing | 8.5 - 10.5 | EXTERNAL | | | | performed at [facility], [address] | mg/dL | LAB | | | | [address], | | | | | | [place] [address] | | | | + + + [...] | | | | | [place] [address] | | | | + + + [...] | | | Fingerstick | performed at [facility];[address] | | LAB | | | [address];[place], [place] | | | | | | [address] | | | | + + + [...] | | | Fingerstick | performed at [facility];[address] | | LAB | | | | [address];[place], [place] | | | | | | [address] | | | | + + + [...] | | | Fingerstick | performed at [facility];[address] | | LAB | | | | [address];[place] | | | | | | [address] | | | | + + + [...] | | | Fingerstick | performed at [facility];[address] | | LAB | | | | [address];[place] | | | | | | [address] | | | | + + + [...] | | | | [facility], [address] | | | | | | [place] | | | | | | [address] | | | | + + + + + + | RED CELL | 4.92Comment: Testing | 4.20 - 5.70 | EXTERNAL | | | COUNT | performed at [facility], [address] | M/uL | LAB | | | | [address], | | | | | | [place] [address] | | | | + + + + + + | Hgb | 13.9Comment: Testing | 13.2 - 17.0 | EXTERNAL | | | | performed at [facility], [address] | g/dL | LAB | | | | [address], | | | | | | [place] [address] | | | | + + + + + + | Hematocrit, | 40.8Comment: Testing | 39.0 - 50.0 % | EXTERNAL | | | POC | performed at [facility], [address] | | LAB | | | | [address], | | | | | | [place] [address] | | | | + + + + + + | MCV | 83.0Comment: Testing | 80.0 - 100.0 fl | EXTERNAL | | | | performed at [facility], [address] | | LAB | | | | [address], | | | | | | [place] [address] | | | | + + + + + + | MCH | 28.3Comment: Testing | 27.0 - 34.0 pg | EXTERNAL | | | | performed at [facility], [address] | | LAB | | | | [address], | | | | | | [place] [address] | | | | + + + + + + | MCHC | 34.0Comment: Testing | 32.0 - 35.5 | EXTERNAL | | | | performed at [facility], [address] | g/dL | LAB | | | | [address], | | | | | | [place] [address] | | | | + + + + + + | RDW-CV | 42.4Comment: Testing | 37 - 53 fl | EXTERNAL | | | | performed at [facility], [address] | | LAB | | | | [address], | | | | | | [place] [address] | | | | + + + + + + | Platelet | 215Comment: Testing | 150 - 400 K/uL | EXTERNAL | | | Count | performed at [facility], [address] | | LAB | | | Plasma | [address], | | | | | | [place] [address] | | | | + + + + + + | MPV | 8.5Comment: Testing | fl | EXTERNAL | | | | performed at [facility], [address] | | LAB | | | | [address], | | | | | | [place] [address] | | | | + + + + + + | Differentia | AUTOMATEDComment: | | EXTERNAL | | | l Type | Testing performed at | | LAB | | | | [facility], [address] | | | | | | [place] | | | | | | [address] | | | | + + + + + + | % Segmented | 70.19Comment: Testing | % | EXTERNAL | | | | performed at [facility], [address] | | LAB | | | Neutrophils | [address], | | | | | | [place] [address] | | | | + + + + + + | % | 17.93Comment: Testing | % | EXTERNAL | | | Lymphocytes | performed at [facility], [address] | | LAB | | | | [address], | | | | | | [place] [address] | | | | + + + + + + | % Monocytes | 8.97Comment: Testing | % | EXTERNAL | | | | performed at [facility], [address] | | LAB | | | | [address], | | | | | | [place] [address] | | | | + + + + + + | % | 2.27Comment: Testing | % | EXTERNAL | | | Eosinophils | performed at [facility], [address] | | LAB | | | | [address], | | | | | | [place] [address] | | | | + + + + + + | % Basophils | 0.64Comment: Testing | % | EXTERNAL | | | | performed at [facility], [address] | | LAB | | | | [address], | | | | | | [place] [address] | | | | + + + + + + | Absolute | 7.86 (H)Comment: Testing | 1.90 - 7.40 | EXTERNAL | | | Segmented | performed at [facility], [address] | [address]L | LAB | | | Neutrophils | [address], | | | | | | [place] [address] | | | | + + + + + + | Absolute | 2.01Comment: Testing | 1.00 - 3.90 | EXTERNAL | | | Lymphocytes | performed at [facility], [address] | K/uL | LAB | | | | [address], | | | | | | [place] [address] | | | | + + + + + + | Absolute | 1.01 (H)Comment: Testing | 0.00 - 0.80 | EXTERNAL | | | Monocytes | performed at [facility], [address] | [address]L | LAB | | | | [address], | | | | | | [place] [address] | | | | + + + + + + | Absolute | 0.25Comment: Testing | 0.00 - 0.50 | EXTERNAL | | | Eosinophils | performed at [facility], [address] | K/uL | LAB | | | | [address], | | | | | | [place] [address] | | | | + + + + + + | Absolute | 0.07Comment: Testing | 0.00 - 0.10 | EXTERNAL | | | Basophils | performed at [facility], [address] | K/uL | LAB | | | | [address], | | | | | | [place] [address] | | | | + + + [...] EXTERNAL | | | | performed at [facility], [address] | | LAB | | | | [address], | | | | | | [place] [address] | | | | + + + [...] | | | | | [place] [address] | | | | + + + [...] | | | | | [place] [address] | | | | + + + + + + | K | 3.9Comment: Testing | 3.5 - 4.9 | EXTERNAL | | | | performed at [facility], [address] | mmol/L | LAB | | | | [address], | | | | | | [place] [address] | | | | + + + + + + | Cl | 103Comment: Testing | 99 - 109 mmol/L | EXTERNAL | | | | performed at [facility], [address] | | LAB | | | | [address], | | | | | | [place] [address] | | | | + + + + + + | CO2 | 25Comment: Testing | 23 - 32 mmol/L | EXTERNAL | | | | performed at [facility], [address] | | LAB | | | | [address], | | | | | | [place] [address] | | | | + + + + + + | Anion Gap | 15Comment: Testing | 5 - 20 mmol/L | EXTERNAL | | | | performed at [facility], [address] | | LAB | | | | [address], | | | | | | [place] [address] | | | | + + + + + + | Glucose, | 132 (H)Comment: Testing | 65 - 99 mg/dL | EXTERNAL | | | Fasting | performed at [facility], [address] | | LAB | | | | [address], | | | | | | [place] [address] | | | | + + + + + + | BUN | 9Comment: Testing | 8 - 25 mg/dL | EXTERNAL | | | | performed at [facility], [address] | | LAB | | | | [address], | | | | | | [place] [address] | | | | + + + + + + | Creatinine | 0.5 (L)Comment: Testing | 0.70 - 1.30 | EXTERNAL | | | | performed at [facility], [address] | mg/dL | LAB | | | | [address], | | | | | | [place] [address] | | | | + + + + + + | BUN/Creatin | 18Comment: Testing | | EXTERNAL | | | ine Ratio | performed at [facility], [address] | | LAB | | | | [address], | | | | | | [place] [address] | | | | + + + + + + | Calcium | 8.4 (L)Comment: Testing | 8.5 - 10.5 | EXTERNAL | | | | performed at [facility], [address] | mg/dL | LAB | | | | [address], | | | | | | [place] [address] | | | | + + + + + + | Protein, | 6.0 (L)Comment: Testing | 6.3 - 8.2 g/dL | EXTERNAL | | | Total | performed at [facility], [address] | | LAB | | | | [address], | | | | | | [place] [address] | | | | + + + + + + | Albumin | 3.0 (L)Comment: Testing | 3.3 - 4.8 g/dL | EXTERNAL | | | | performed at [facility], [address] | | LAB | | | | [address], | | | | | | [place] [address] | | | | + + + + + + | Globulin | 3.0Comment: Testing | 1.3 - 4.9 g/dL | EXTERNAL | | | | performed at [facility], [address] | | LAB | | | | [address], | | | | | | [place] [address] | | | | + + + + + + | A/G Ratio | 1.0Comment: Testing | 1.0 - 2.4 | EXTERNAL | | | | performed at [facility], [address] | | LAB | | | | [address], | | | | | | [place] [address] | | | | + + + + + + | Bilirubin | 1.4Comment: Testing | 0.1 - 1.5 mg/dL | EXTERNAL | | | Total | performed at [facility], [address] | | LAB | | | [address], | | | | | | [place] [address] | | | | + + + + + + | ALP, | 77Comment: Testing | 35 - 115 U/L | EXTERNAL | | | External | performed at [facility], [address] | | LAB | | | | [address], | | | | | | [place] [address] | | | | + + + + + + | AST | 14Comment: Testing | 10 - 45 U/L | EXTERNAL | | | | performed at [facility], [address] | | LAB | | | | [address], | | | | | | [place] [address] | | | | + + + + + + | ALT | 13Comment: Testing | 10 - 65 U/L | EXTERNAL | | | | performed at [facility], [address] | | LAB | | | | [address], | | | | | | [place] [address] | | | | + + + [...] | | | | | | [place] [address] | | | | + + + [...] | | | Fingerstick | performed at [facility];[address] | | LAB | | | [address];[place], [place] | | | | | | [address] | | | | + + + [...] | | | Fingerstick | performed at [facility];[address] | | LAB | | | | [address];[place] | | | | | | [address] | | | | + + + [...] | | | to suboptimal images. MEASUREMENTS Building Construction Professor: | | | KVW Authenticated by: Aleksandar [...] due to suboptimal images. MEASUREMENTS | | Building Construction Professor: Valentinticated by: Aleksandar Pacheco Date/Time: 05-16-2016 20:59:22 [...] | |MEASUREMENTS | | | | | |Building Construction Professor: KVW | |Authenticated by: Aleksandar Dotson | [...] | | | Fingerstick | performed at [facility];[address] | | LAB | | | | [address];[place], [place] | | | | | | [address] | | | | + + [...] was also examined | | | with [employer] 3D software for evaluation of the cerebral [...] Conversion - 11/02/2018 6:55 AM PDT REAGAN [id number] years MaleCTA | | HEAD NECK W [...] The data set was also examined with [employer]faces 3D software for evaluation of the cerebral [...] [place] | | | | | | [address] | | | | + + + + + + | RED CELL | 4.77Comment: Testing | 4.20 - 5.70 | EXTERNAL | | | COUNT | performed at [facility], [address] | M/uL | LAB | | | | [address], | | | | | | [place] [address] | | | | + + + + + + | Hgb | 13.4Comment: Testing | 13.2 - 17.0 | EXTERNAL | | | | performed at [facility], [address] | g/dL | LAB | | | | [address], | | | | | | [place] [address] | | | | + + + + + + | Hematocrit, | 39.1Comment: Testing | 39.0 - 50.0 % | EXTERNAL | | | POC | performed at [facility], [address] | | LAB | | | | [address], | | | | | | [place] [address] | | | | + + + + + + | MCV | 82.0Comment: Testing | 80.0 - 100.0 fl | EXTERNAL | | | | performed at [facility], [address] | | LAB | | | | [address], | | | | | | [place] [address] | | | | + + + + + + | MCH | 28.0Comment: Testing | 27.0 - 34.0 pg | EXTERNAL | | | | performed at [facility], [address] | | LAB | | | | [address], | | | | | | [place] [address] | | | | + + + + + + | MCHC | 34.1Comment: Testing | 32.0 - 35.5 | EXTERNAL | | | | performed at [facility], [address] | g/dL | LAB | | | | [address], | | | | | | [place] [address] | | | | + + + + + + | RDW-CV | 42.9Comment: Testing | 37 - 53 fl | EXTERNAL | | | | performed at [facility], [address] | | LAB | | | | [address], | | | | | | [place] [address] | | | | + + + + + + | Platelet | 238Comment: Testing | 150 - 400 K/uL | EXTERNAL | | | Count | performed at [facility], [address] | | LAB | | | Plasma | [address], | | | | | | [place] [address] | | | | + + + + + + | MPV | 8.8Comment: Testing | fl | EXTERNAL | | | | performed at [facility], [address] | | LAB | | | | [address], | | | | | | [place] [address] | | | | + + + + + + | Differentia | AUTOMATEDComment: | | EXTERNAL | | | l Type | Testing performed at | | LAB | | | | [facility], [address], [place], [place] | | | | | | [address] | | | | + + + + + + | % Segmented | 68.92Comment: Testing | % | EXTERNAL | | | | performed at [facility], [address] | | LAB | | | Neutrophils | [address], | | | | | | [place] [address] | | | | + + + + + + | % | 18.94Comment: Testing | % | EXTERNAL | | | Lymphocytes | performed at [facility], [address] | | LAB | | | | [address], | | | | | | [place] [address] | | | | + + + + + + | % Monocytes | 10.32Comment: Testing | % | EXTERNAL | | | | performed at [facility], [address] | | LAB | | | | [address], | | | | | | [place] [address] | | | | + + + + + + | % | 1.25Comment: Testing | % | EXTERNAL | | | Eosinophils | performed at [facility], [address] | | LAB | | | | [address], | | | | | | [place] [address] | | | | + + + + + + | % Basophils | 0.57Comment: Testing | % | EXTERNAL | | | | performed at [facility], [address] | | LAB | | | | [address], | | | | | | [place] [address] | | | | + + + + + + | Absolute | 8.86 (H)Comment: Testing | 1.90 - 7.40 | EXTERNAL | | | Segmented | performed at [facility], [address] | | | Neut[address] | [address], | | | | | | [place] [address] | | | | + + + + + + | Absolute | 2.44Comment: Testing | 1.00 - 3.90 | EXTERNAL | | | Lymphocytes | performed at [facility], [address] | [address] | LAB | | | | [address], | | | | | | [place] [address] | | | | + + + + + + | Absolute | 1.33 (H)Comment: Testing | 0.00 - 0.80 | EXTERNAL | | | Monocytes | performed at [facility], [address] | [address] | LAB | | | | [address], | | | | | | [place] [address] | | | | + + + + + + | Absolute | 0.16Comment: Testing | 0.00 - 0.50 | EXTERNAL | | | Eosinophils | performed at [facility], [address] | [address] | LAB | | | | [address], | | | | | | [place] [address] | | | | + + + + + + | Absolute | 0.07Comment: Testing | 0.00 - 0.10 | EXTERNAL | | | Basophils | performed at [facility], [address] | [address] | LAB | | | | [address], | | | | | | [place] [address] | | | | + + + [...] | | | Fingerstick | performed at [facility];[address] | | LAB | | | | [address];[place] | | | | | | [address] | | | | + + + [...] | | | performed at [facility], [address] | | | | | | [address], | | | | | | [place] [address] | | | | + + + [...] | | | performed at [facility], [address] | | | | | | [address], | | | | | | [place] [address] | | | | + + + [...] | | | | | [place] [address] | | | | + + + + + + | K | 4.2Comment: SPECIMEN | 3.5 - 4.9 | EXTERNAL | | | | SLIGHTLY | mmol/L | LAB | | | | HEMOLYZEDTesting | | | | | | performed at [facility], [address] | | | | | | [address], | | | | | | [place] [address] | | | | + + + + + + | Cl | 104Comment: Testing | 99 - 109 mmol/L | EXTERNAL | | | | performed at [facility], [address] | | LAB | | | | [address], | | | | | | [place] [address] | | | | + + + + + + | CO2 | 25Comment: Testing | 23 - 32 mmol/L | EXTERNAL | | | | performed at [facility], [address] | | LAB | | | | [address], | | | | | | [place] [address] | | | | + + + + + + | Anion Gap | 14Comment: Testing | 5 - 20 mmol/L | EXTERNAL | | | | performed at [facility], [address] | | LAB | | | | [address], | | | | | | [place] [address] | | | | + + + [...] | | | | | [place] [address] | | | | + + + + + + | BUN | 9Comment: Testing | 8 - 25 mg/dL | EXTERNAL | | | | performed at [facility], [address] | | LAB | | | | [address], | | | | | | [place] [address] | | | | + + + + + + | Creatinine | 0.7Comment: SPECIMEN | 0.70 - 1.30 | EXTERNAL | | | | SLIGHTLY | mg/dL | LAB | | | | HEMOLYZEDTesting | | | | | | performed at [facility], [address] | | | | | | [address], | | | | | | [place] [address] | | | | + + + + + + | BUN/Creatin | 13Comment: Testing | | EXTERNAL | | | ine Ratio | performed at [facility], [address] | | LAB | | | | [address], | | | | | | [place] [address] | | | | + + + + + + | Calcium | 8.5Comment: Testing | 8.5 - 10.5 | EXTERNAL | | | | performed at [facility], [address] | mg/dL | LAB | | | | [address], | | | | | | [place] [address] | | | | + + + + + + | Protein, | 5.8 (L)Comment: Testing | 6.3 - 8.2 g/dL | EXTERNAL | | | Total | performed at [facility], [address] | | LAB | | | | [address], | | | | | | [place] [address] | | | | + + + + + + | Albumin | 2.8 (L)Comment: Testing | 3.3 - 4.8 g/dL | EXTERNAL | | | | performed at [facility], [address] | | LAB | | | | [address], | | | | | | [place] [address] | | | | + + + + + + | Globulin | 3.0Comment: Testing | 1.3 - 4.9 g/dL | EXTERNAL | | | | performed at [facility], [address] | | LAB | | | [address], | | | | | | [place] [address] | | | | + + + + + + | A/G Ratio | 0.9 (L)Comment: Testing | 1.0 - 2.4 | EXTERNAL | | | | performed at [facility], [address] | | LAB | | | | [address], | | | | | | [place] [address] | | | | + + + + + + | Bilirubin | 1.7 (H)Comment: SPECIMEN | 0.1 - 1.5 mg/dL | EXTERNAL | | | Total | SLIGHTLY | | LAB | | | | HEMOLYZEDTesting | | | | | | performed at [facility], [address] | | | [address], | | | | | | [place] [address] | | | | + + + + + + | ALP, | 77Comment: Testing | 35 - 115 U/L | EXTERNAL | | | External | performed at [facility], [address] | | LAB | | | | [address], | | | | | | [place] [address] | | | | + + + + + + | AST | 18Comment: SPECIMEN | 10 - 45 U/L | EXTERNAL | | | | SLIGHTLY | | LAB | | | | HEMOLYZEDTesting | | | | | | performed at [facility], [address] | | | | | | [address], | | | | | | [place] [address] | | | | + + + + + + | ALT | 15Comment: SPECIMEN | 10 - 65 U/L | EXTERNAL | | | | SLIGHTLY | | LAB | | | | HEMOLYZEDTesting | | | | | | performed at [facility], [address] | | | | | | [address], | | | | | | [place] [address] | | | | + + + [...] | | | | | | [place] [address] | | | | + + + [...] | | | Fingerstick | performed at [facility];[address] | | LAB | | | | [address];[place] | | | | | | [address] | | | | + + + [...] | | | Fingerstick | performed at [facility];[address] | | LAB | | | | [address];[place], [place] | | | | | | [address] | | | | + + + [...] | | | | | [place] [address] | | | | + + + [...] | | | Fingerstick | performed at [facility];[address] | | LAB | | | | [address];[place] | | | | | | [address] | | | | + + + [...] brain without | | | gadolinium. 3-D cedb-oj-vcdcxs MR angiography was also performed to | [...] the brain without gadolinium. 3-D | | rfdi-yc-pbxsty MR angiography was also performed to the [...] | | | Fingerstick | performed at [facility];[address] | | LAB | | | | [address];[place], [place] | | | | | | [address] | | | | + + + [...] | | | Fingerstick | performed at [facility];[address] | | LAB | | | | [address];[place] | | | | | | [address] | | | | + + + [...] | | | Fingerstick | performed at [facility];[address] | | LAB | | | | [address];[place] | | | | | | [address] | | | | + + + [...] | | | Fingerstick | performed at [facility];[address] | | LAB | | | | [address];[place] | | | | | | [address] | | | | + + + [...] K/uL | LAB | | | | [facility], [address] [facility] | | | | | | [place] | | | | | | [address] | | | | + + + + + + | RED CELL | 5.01Comment: Testing | 4.20 - 5.70 | EXTERNAL | | | COUNT | performed at [facility], [address] | M/uL | LAB | | | | [address], | | | | | | [place] [address] | | | | + + + + + + | Hgb | 14.0Comment: Testing | 13.2 - 17.0 | EXTERNAL | | | | performed at [facility], [address] | g/dL | LAB | | | | [address], | | | | | | [place] [address] | | | | + + + + + + | Hematocrit, | 40.8Comment: Testing | 39.0 - 50.0 % | EXTERNAL | | | POC | performed at [facility], [address] | | LAB | | | | [address], | | | | | | [place] [address] | | | | + + + + + + | MCV | 81.5Comment: Testing | 80.0 - 100.0 fl | EXTERNAL | | | | performed at [facility], [address] | | LAB | | | | [address], | | | | | | [place] [address] | | | | + + + + + + | MCH | 27.9Comment: Testing | 27.0 - 34.0 pg | EXTERNAL | | | | performed at [facility], [address] | | LAB | | | | [address], | | | | | | [place] [address] | | | | + + + + + + | MCHC | 34.2Comment: Testing | 32.0 - 35.5 | EXTERNAL | | | | performed at [facility], [address] | g/dL | LAB | | | | [address], | | | | | | [place] [address] | | | | + + + + + + | RDW-CV | 42.0Comment: Testing | 37 - 53 fl | EXTERNAL | | | | performed at [facility], [address] | | LAB | | | | [address], | | | | | | [place] [address] | | | | + + + + + + | Platelet | 257Comment: Testing | 150 - 400 K/uL | EXTERNAL | | | Count | performed at [facility], [address] | | LAB | | | Plasma | [address], | | | | | | [place] [address] | | | | + + + [...] [place] | | | | | | [address] | | | | + + + + + + | % Segmented | 72.88Comment: Testing | % | EXTERNAL | | | | performed at [facility], [address] | | LAB | | | Neutrophils | [address], | | | | | | [place] [address] | | | | + + + + + + | % | 17.64Comment: Testing | % | EXTERNAL | | | Lymphocytes | performed at [facility], [address] | | LAB | | | | [address], | | | | | | [place] [address] | | | | + + + + + + | % Monocytes | 8.16Comment: Testing | % | EXTERNAL | | | | performed at [facility], [address] | | LAB | | | | [address], | | | | | | [place] [address] | | | | + + + + + + | % | 1.06Comment: Testing | % | EXTERNAL | | | Eosinophils | performed at [facility], [address] | | LAB | | | | [address], | | | | | | [place] [address] | | | | + + + + + + | % Basophils | 0.26Comment: Testing | % | EXTERNAL | | | | performed at [facility], [address] | | LAB | | | | [address], | | | | | | [place] [address] | | | | + + + + + + | Absolute | 10.84 (H)Comment: | 1.90 - 7.40 | EXTERNAL | | | Segmented | Testing performed at | K/uL | LAB | | | Neutrophils | [facility], [address] | | | | | | [place] | | | | | | [address] | | | | + + + + + + | Absolute | 2.62Comment: Testing | 1.00 - 3.90 | EXTERNAL | | | Lymphocytes | performed at [facility], [address] | K/uL | LAB | | | | [address], | | | | | | [place] [address] | | | | + + + + + + | Absolute | 1.21 (H)Comment: Testing | 0.00 - 0.80 | EXTERNAL | | | Monocytes | performed at [facility], [address] | [address] | LAB | | | | [address], | | | | | | [place] [address] | | | | + + + + + + | Absolute | 0.16Comment: Testing | 0.00 - 0.50 | EXTERNAL | | | Eosinophils | performed at [facility], [address] | [address] | LAB | | | | [address], | | | | | | [place] [address] | | | | + + + + + + | Absolute | 0.04Comment: Testing | 0.00 - 0.10 | EXTERNAL | | | Basophils | performed at [facility], [address] | [address] | LAB | | | | [address], | | | | | | [place] [address] | | | | + + + [...] EXTERNAL | | | | performed at [facility], [address] | | LAB | | | | [address], | | | | | | [place] [address] | | | | + + + [...] EXTERNAL | | | | performed at [facility], [address] | | LAB | | | | [address], | | | | | | [place] [address] | | | | + + + [...] | EXTERNAL | | | A1c | [place] [facility] | | LAB | | | [...] | | | performed at [facility], [address] | | | | | [address] [facility] [address], | | | | | | [place] [address] | | | | + + + [...] | | | performed at [facility], [address] | | | | | | [address], | | | | | | [place] [address] | | | | + + + [...] | | | | | [place] [address] | | | | + + + + + + | Triglycerid | 152 (H)Comment: Testing | mg/dL | EXTERNAL | | | es | performed at [facility], [address] | | LAB | | | | [address], | | | | | | [place] [address] | | | | + + + + + + | HDL | 31 (L)Comment: Testing | mg/dL | EXTERNAL | | | | performed at [facility], [address] | | LAB | | | | [address], | | | | | | [place] [address] | | | | + + + + + + | LDL | 47Comment: Testing | mg/dL | EXTERNAL | | | Cholesterol | performed at [facility], [address] | | LAB | | | , | [address], | | | | | Calculated, | [place] [address] | | | | | External | [...] | | | | | [place] [address] | | | | + + + + + + | K | 3.3 (L)Comment: Testing | 3.5 - 4.9 | EXTERNAL | | | | performed at [facility], [address] | mmol/L | LAB | | | [address], | | | | | | [place] [address] | | | | + + + + + + | Cl | 104Comment: Testing | 99 - 109 mmol/L | EXTERNAL | | | | performed at [facility], [address] | | LAB | | | | [address], | | | | | | [place] [address] | | | | + + + + + + | CO2 | 25Comment: Testing | 23 - 32 mmol/L | EXTERNAL | | | | performed at [facility], [address] | | LAB | | | | [address], | | | | | | [place] [address] | | | | + + + + + + | Anion Gap | 12Comment: Testing | 5 - 20 mmol/L | EXTERNAL | | | | performed at [facility], [address] | | LAB | | | | [address], | | | | | | [place] [address] | | | | + + + + + + | Glucose, | 125 (H)Comment: Testing | 65 - 99 mg/dL | EXTERNAL | | | Fasting | performed at [facility], [address] | | LAB | | | | [address], | | | | | | [place] [address] | | | | + + + + + + | BUN | 11Comment: Testing | 8 - 25 mg/dL | EXTERNAL | | | | performed at [facility], [address] | | LAB | | | | [address], | | | | | | [place] [address] | | | | + + + + + + | Creatinine | 0.7Comment: Testing | 0.70 - 1.30 | EXTERNAL | | | | performed at [facility], [address] | mg/dL | LAB | | | | [address], | | | | | | [place] [address] | | | | + + + + + + | BUN/Creatin | 16Comment: Testing | | EXTERNAL | | | ine Ratio | performed at [facility], [address] | | LAB | | | | [address], | | | | | | [place] [address] | | | | + + + + + + | Calcium | 8.3 (L)Comment: Testing | 8.5 - 10.5 | EXTERNAL | | | | performed at [facility], [address] | mg/dL | LAB | | | | [address], | | | | | | [place] [address] | | | | + + + [...] [address], | | | | | | [place] [address] | | | | + + + [...] | | | Fingerstick | performed at [facility];[address] | | LAB | | | | [address];[place] | | | | | | [address] | | | | + + + [...] | | | Fingerstick | performed at [facility];[address] | | LAB | | | | [address];[place] | | | | | | [address] | | | | + + + [...] | | | Fingerstick | performed at [facility];[address] | | LAB | | | | [address];[place] | | | | | | [address] | | | | + + + [...] | | | Fingerstick | performed at [facility];[address] | | LAB | | | | [address];[place] | | | | | | [address] | | | | + + + [...] | | | Fingerstick | performed at [facility];[address] | | LAB | | | | [address];[place], [place] | | | | | | [address] | | | | + + + [...] | | | Fingerstick | performed at [facility];[address] | | LAB | | | | [address];[place], [place] | | | | | | [address] | | | | + + + [...] | | | Fingerstick | performed at [facility];[address] | | LAB | | | [address];[place], [place] | | | | | | [address] | | | | + + + [...] | | | Fingerstick | performed at [facility];8 | | LAB | | | | [address];[place] | | | | | | [address] | | | | + + + [...] | | | Fingerstick | performed at [facility];[address] | | LAB | | | | [address];[place] | | | | | | [address] | | | | + + + [...] | | | Fingerstick | performed at [facility];[address] | | LAB | | | | [address];[place] | | | | | | [address] | | | | + + [...] | | | Fingerstick | performed at [facility];[address] | | LAB | | | | [address];[place] | | | | | | [address] | | | | + + + [...] | | | Fingerstick | performed at [facility];[address] | | LAB | | | | [address];[place] | | | | | | [address] | | | | + + + [...] | | | Fingerstick | performed at [facility];[address] | | LAB | | | [address];[place], [place] | | | | | | [address] | | | | + + + [...] | | | Fingerstick | performed at [facility];[address] | | LAB | | | | [address];[place] | | | | | | [address] | | | | + + + [...] | | | Fingerstick | performed at [facility];8 | | LAB | | | | [address];[place] | | | | | | [address] | | | | + + + [...] | | | Fingerstick | performed at [facility];[address] | | LAB | | | | [address];[place], [place] | | | | | | [address] | | | | + + + [...] | | Jefe: 0.48 m/s TV Dec Green: 3.62 m/s2 TV Dec Time: 136.62 | | | ms TV E Jefe: 0.49 m/s TV E/A Ratio: 1.02 Building Construction Professor: TRINY | | | Authenticated by: Aleksandar [...] | Index (A-L): 25.78 ml/m2LAAs A2C: 20.06 [id number] A-L A2C: 56.80 mlLAESV MOD A2C: | | 53.98 mlLALs A2C: 6.01 cmLAAs A4C: 18.67 vy2ZXQNH A-L A4C: 45.70 mlLAESV MOD A4C: | | 43.69 mlLALs A4C: 6.47 cmHR: 94.31 BPMAV maxP.45 mmHgAV meanP.54 | | mmHgAV Vmax: 1.61 m/Abilio Vmean: 1.22 m/Abilio VTI: 27.30 cmAVA Vmax: 2.68 cm2AVA | | (VTI): 2.69 [id number] Vmax: 0.00 cm2/m2AVAI (VTI): 0.00 cm2/m2LVCI Dopp: 3.08 | | l/[id number] Dopp: 6.31 l/minHR: 85.80 BPMLVOT maxP.48 mmHgLVOT meanP.11 | | mmHgLVSI Dopp: 35.92 ml/m2LVSV Dopp: 73.65 mlLVOT Vmax: 1.36 m/sLVOT Vmean: 0.96 | | m/sLVOT VTI: 23.22 cmMCO: 392.13 msMV A Jefe: 1.50 m/sMV DecT: 213.25 msMV E | | Jefe: 0.88 m/sMV E/A Ratio: 0.59MV PHT: 74.39 msMVA By PHT: 2.95 sl6Fdktuj e': | | 0.05 m/sSeptal E/e': 14.80RAP: 8 mmHgTV A Jefe: 0.48 m/sTV Dec Green: 3.62 m/s2TV | | Dec Time: 136.62 msTV E Jefe: 0.49 m/sTV E/A Ratio: 1.02 Building Construction Professor: | | GDAuthenticated by: Aleksandar HernandezraReport Date/Time: [...] A Jefe: 0.48 m/s | |TV Dec Green: 3.62 m/s2 | |TV Dec Time: 136.62 ms | |TV E Jefe: 0.49 m/s | |TV E/A Ratio: 1.02 | | | |Building Construction Professor: TRINY | |Authenticated by: Aleksandar Dotson | [...] EXTERNAL LAB | | Testing performed at [facility];[address] [place] [address];[place] [address] MRSA PCR | | | NEGATIVE Testing performed at | | | [address];[place] [address] | | + + + + +---------+ [...] | | | Fingerstick | performed at [facility];[address] | | LAB | | | | [address];[place] | | | | | | [address] | | | | + + + [...] + + | Historically converted procedure from [facility] environment | EXTERNAL LAB | + [...] | Ischemic stroke diagnosed during current admission ([facility]) | + + | Type 2 diabetes mellitus with diabetic neuropathy, with long-term current use of | | insulin ([facility]) | + + | Moderate protein-calorie malnutrition ([facility]) Malnutrition of moderate degree | + + | Gastroesophageal reflux disease without esophagitis Esophageal reflux | + + | Hypokalemia Hypopotassemia | + + | Essential hypertension, benign | + + documented in this encounter
--- OUTSIDE RECORDS SUMMARY | ~2019-03-28 | XMS | Encounter Summary ---
Demographics + + + | Address | [address] | | | [place] [address] | + + + | Home Phone [...] | Organization | [facility] | | | and [place] | + + + | Address | Unknown | + + + | Phone | Unavailable | + + + Support + + + + + | Name | Relationship | Address | Phone | + + + + + | Jessica Shepard | ECON | [address] | | | | | [place] | | | | | [address] | | + + + + + | Bel Solis | ECON | Unknown | | + + + + + | José Shepard | ECON | [place] | | | | | [address] | | + + + + + | Jessica Shepard | ECON | Unknown | | + + + + + Care Team Providers + +------+ + | Care Crawler Tractor Operator Name | Role | Phone | + +------+ + PCP | Unavailable | + +------+ + Encounter Details +--------+ + + + + | Date | Type | Department | Care Team | Description | +--------+ + + + + | 09/14/ | Hospital | [facility] | | | | 2001 | Encounter | MED CTR XRAY [address] | | | | | | [address] | | | | | | [place] [address] | | | | | | [phone] | | | +--------+ + + + [...]
--- OUTSIDE RECORDS SUMMARY | ~2019-03-28 | XMS | Encounter Summary ---
Demographics + + + | Address | [address] | | | [place] [address] | + + + | Home Phone [...] | Organization | [facility] | | | and [place] | + + + | Address | Unknown | + + + | Phone | Unavailable | + + + Support + + + + + | Name | Relationship | Address | Phone | + + + + + | Jessica Shepard | ECON | [address] | | | | | [place] | | | | | [address] | | + + + + + | Bel Solis | ECON | Unknown | | + + + + + | José Shepard | ECON | [place] | | | | | [address] | | + + + + + | Jessica Shepard | ECON | Unknown | | + + + + + Care Team Providers + +------+ + | Care Front Office Supervisor Name | Role | Phone | + +------+ + | iDan Lr NP | PCP | | + +------+ + Encounter Details +--------+ + + + + | Date | Type | Department | Care Team | Description | +--------+ + + + + | 05/14/ | Hospital | [facility] | Conversion | Pain | | 2017 | Encounter | CONVERSION DEP [address] | Transaction, | | | | | [address] | Provider Unknown | | | | | [place] | [phone] | | | | | [address] | | | | | | [phone] | | | +--------+ + + + [...]
--- OUTSIDE RECORDS SUMMARY | ~2019-03-28 | XMS | Encounter Summary ---
Demographics + + + | Address | [address] | | | [place] [address] | + + + | Home Phone [...] + | Organization | [facility] | | | and [place] | + + + | Address | Unknown | + + + | Phone | Unavailable | + + + Support + + + + + | Name | Relationship | Address | Phone | + + + + + | Jessica Shepard | ECON | [address] | | | | | [place] | | | | | [address] | | + + + + + | Bel Solis | ECON | Unknown | | + + + + + | José Shepard | ECON | [place] | | | | | [address] | | + + + + + | Jessica Shepard | ECON | Unknown | | + + + + + Care Team Providers + +------+ + | Care Rackman Name | Role | Phone | + +------+ + | Dian Lr NP | PCP | | + +------+ + Encounter Details +--------+ + + + + | Date | Type | Department | Care Team | Description | +--------+ + + + + | 04/05/ | Hospital | [facility] | Christina Da Silva | | | 2013 - | Encounter | MED CTR EMERGENCY | [address] | | | | | [address] | [facility], | | | 04/06/ | | [place] | [place] [address] | | | 2013 | | [address] | [phone] | | | | | [phone] | | | +--------+ + + + [...] At | + + + | [facility] | [place] | | Department [address] [facility], [place] | [facility] | | [ rep ct street1[address]2] [ rep [facility] | | st zip] Signed | - IMAGING | | | | | Patient Name: KELSILINDAVALARIEREAGAN Physician: | | | SCHR.01 : 1945 Age: 68 Sex: M Unit #: [id number] | | | Exam Date: 04/05/13 Location: ER | | | Report #: [id number] Page: | | | %(RAD)RES..mtdd.print.filter("pg") of %(RAD) | | | RES..mtdd.print.filter("tpg") | | | | | | Accession Number: [id number] | | | ULTRASOUND OF THE ABDOMEN [...] Transcribed Date/Time: 04/06/2013 08:35 | | | Newspaper Stuffer: <<Signature on File>> | | | | | | Rico Santiago MD04/06/13 1619 <Electronically signed by Rico Santiago | | | MD> Rico Santiago MD 04/06/13 0827 Newspaper Stuffer: | | | [facility] Luujepiqehqeg52/17/14 0835 Christina Da Silva, | | | MD | | + + + + + + + + | Performing | Address | City/State/Zipcode | Phone Number | | Organization | | | | + + + + + | [facility] | [address] | [place], [place] | [phone] | | [facility] | | [address] | | | - IMAGING | | | | + + + + + CT Abdomen Pelvis w Contrast (04/06/2013 7:25 AM PST) + + | Specimen | + + | | + + + + + | Narrative | Performed At | + + + | [facility] | [place] | | Department [address] [place] [address] | [facility] | | [ rep ct street1+2] [ rep [facility] | | st zip] Signed | - IMAGING | | | | | Patient Name: BIAREAGAN Physician: | | | SCHR.01 : 1945 Age: 68 Sex: M Unit #: [id number] | | | Exam Date: 04/05/13 Location: ER | | | Report #: [id number] Page: | | | %(RAD)RES..mtdd.print.filter("pg") of %(RAD) | | | RES..mtdd.print.filter("tpg") | | | | | | Accession Number: [id number] | | | ENHANCED CT ABDOMEN AND [...] | fluid is evident. There are stable skhbvrtxww-xs-sqbwdf enlarged | | | kierra caval lymph [...] STABLE SPLENOMEGALY. | | | 4. STABLE JCDSTPSXKM-UB-XZECPN ENLARGED KIERRA CAVAL LYMPH | | | [...] ER | | | staff by the [facility] radiologist on 04/05/2013 at 2147 hours. | | | Dictated Date/Time: 04/06/2013 07:25 Transcribed | | | Date/Time: 04/06/2013 07:40 Newspaper Stuffer: | | | <<Signature on File>> | | | Tez Jacobo | | | MD Yossi04/06/13 1051 <Electronically signed by Tez Sy MD> | | | Tez Sy MD 04/06/13 0725 Newspaper Stuffer: | | | [employer] Ungaearbvnrqv69/17/1440 Christina Da Silva, | | | MD | | + + + + + + + + | Performing | Address | City/State/Zipcode | Phone Number | | Organization | | | | + + + + + | [facility] | [address] | [place] | [phone] | | [facility] | | [address] | | | - IMAGING | | [...] - 1.030 | [facility] | | | [place] | | | [facility] | | [...] + | [facility] | [address] | [place] | [phone] | | [facility] | | [address] | | | - LABORATORY | | | | + + + + + | [facility] | [address] | [place] | | | [facility] | | [address] | | | - LABORATORY | | [...] + | [facility] | [address] | [place], [place] | [phone] | | [facility] | | [address] | | | - LABORATORY | | | | + + + + + | [facility] | [address] | [place], [place] | | | [facility] | | [address] | | | - LABORATORY | | [...] + | [facility] | [address] | [place], [place] | [phone] | | [facility] | | [address] | | | - LABORATORY | | | | + + + + + | [facility] | [address] | [place] | | | [facility] | | [address] | | | - LABORATORY | | [...] + | [facility] | [address] | [place], [place] | [phone] | | [facility] | | [address] | | | - LABORATORY | | | | + + + + + | [facility] | [address] | [place], [place] | | | [facility] | | [address] | | | - LABORATORY | | [...] | | | | | REPORT TO [facility] | | | | | | 04/05/13 @ 192 by | | | | | | SHANE | | | | | | Comment: PHONED REPORT TO [facility] 04/05/13 @ 1919 by SHANE | | [...] [address] | [place] | [phone] | | [facility] | | [address] | | | - LABORATORY | | | | + + + + + | [facility] | [address] | [place] | | | [facility] | | [address] | | | - LABORATORY | | | | + + + + + documented in this encounter Visit Diagnoses Not on filedocumented in this encounter
--- OUTSIDE RECORDS SUMMARY | ~2019-03-28 | XMS | Encounter Summary ---
Demographics + + + | Address | [address] | | | [place] [address] | + + + | Home Phone [...] | Organization | [facility] | | | and [place] | + + + | Address | Unknown | + + + | Phone | Unavailable | + + + Support + + + + + | Name | Relationship | Address | Phone | + + + + + | Jessica Shepard | ECON | [address] | | | | | [place] | | | | | [address] | | + + + + + | Bel Solis | ECON | Unknown | | + + + + + | José Shepard | ECON | [place] | | | | | [address] | | + + + + + | Jessica Shepard | ECON | Unknown | | + + + + + Care Team Providers + +------+ + | Care Accountant Certified Public Name | Role | Phone | + +------+ + | Dian Lr INDUSTRIAL SOCIOLOGIST | PCP | | + +------+ + Encounter Details +--------+ + + + + | Date | Type | Department | Care Team | Description | +--------+ + + + + | 11/26/ | Hospital | [facility] | Toby Ortiz | Leonel osteomyelitis | | 2018 | Encounter | MED CTR OP INFUSION | MD [address] | of right foot (HCC) | | | | [address] | [facility] | (Primary Dx) | | | | [place] | [place] [address] | | | | | [address] | [phone] | | | | | [phone] | | | +--------+ + + + [...]
--- OUTSIDE RECORDS SUMMARY | ~2019-03-28 | XMS | Encounter Summary ---
Demographics + + + | Address | [address] | | | [place] [address] | + + + | Home Phone [...] | Organization | [facility] | | | and [place] | + + + | Address | Unknown | + + + | Phone | Unavailable | + + + Support + + + + + | Name | Relationship | Address | Phone | + + + + + | Jessica Shepard | ECON | [address] | | | | | [place] | | | | | [address] | | + + + + + | Bel Solis | ECON | Unknown | | + + + + + | José Shepard | ECON | [place] | | | | | [address] | | + + + + + | Jessica Shepard | ECON | Unknown | | + + + + + Care Team Providers + +------+ + | Care Hogshead Opener Name | Role | Phone | + +------+ + PCP | Unavailable | + +------+ + Encounter Details +--------+ + + + + | Date | Type | Department | Care Team | Description | +--------+ + + + + | 02/22/ | Hospital | [facility] | | | | 2000 | Encounter | MED CTR XRAY [address] | | | | | | [address] | | | | | | [place] [address] | | | | | | [phone] | | | +--------+ + + + [...]
--- OUTSIDE RECORDS SUMMARY | ~2019-03-28 | XMS | Encounter Summary ---
Demographics + + + | Address | [address] | | | [place] [address] | + + + | Home Phone [...] + | Organization | [facility] | | | and [place] | + + + | Address | Unknown | + + + | Phone | Unavailable | + + + Support + + + + + | Name | Relationship | Address | Phone | + + + + + | Jessica Shepard | ECON | [address] | | | | | [place] | | | | | [address] | | + + + + + | Bel Solis | ECON | Unknown | | + + + + + | José Shepard | ECON | [place] | | | | | [address] | | + + + + + | Jessica Shepard | ECON | Unknown | | + + + + + Care Team Providers + +------+ + | Care Drive In Waiter/Waitress Name | Role | Phone | + +------+ + PCP | Unavailable | + +------+ + Encounter Details +--------+ + + + + | Date | Type | Department | Care Team | Description | +--------+ + + + + | 12/27/ | Hospital | [facility] | | | | 2006 | Encounter | MED CTR XRAY [address] | | | | | | [address] | | | | | | [place] [address] | | | | | | [phone] | | | +--------+ + + + [...]
--- OUTSIDE RECORDS SUMMARY | ~2019-03-28 | XMS | Encounter Summary ---
Demographics + + + | Address | [address] | | | [place] [address] | + + + | Home Phone [...] | Organization | [facility] | | | and [place] | + + + | Address | Unknown | + + + | Phone | Unavailable | + + + Support + + + + + | Name | Relationship | Address | Phone | + + + + + | Jessica Shepard | ECON | [address] | | | | | [place] | | | | | [address] | | + + + + + | Bel Solis | ECON | Unknown | | + + + + + | José Shepard | ECON | [place] | | | | | [address] | | + + + + + | Jessica Shepard | ECON | Unknown | | + + + + + Care Team Providers + +------+ + | Care City Collector Name | Role | Phone | + +------+ + | Dian Lr NP | PCP | | + +------+ + Encounter Details +--------+ + + + + | Date | Type | Department | Care Team | Description | +--------+ + + + + | 11/24/ | Telephone | [facility] | Nelda Dickson E | | | 2017 | | MED CTR ACUTE | | | | | | PHYSICAL THERAPY | | | | | | [address] | | | | | | [place] [address] | | | | | | [phone] | | | +--------+ + + + [...]
--- OUTSIDE RECORDS SUMMARY | ~2019-03-28 | XMS | Encounter Summary ---
Demographics + + + | Address | [address] | | | [place] [address] | + + + | Home Phone [...] Organization | [facility] | | | and [place] | + + + | Address | Unknown | + + + | Phone | Unavailable | + + + Support + + + + + | Name | Relationship | Address | Phone | + + + + + | Jessica Shepard | ECON | [address] | | | | | [place] | | | | | [address] | | + + + + + | Bel Solis | ECON | Unknown | | + + + + + | José Shepard | ECON | [place] | | | | | [address] | | + + + + + | Jessica Shepard | ECON | Unknown | | + + + + + Care Team Providers + +------+ + | Care Marine Propulsion Technician Name | Role | Phone | + +------+ + | Dian Lr SELF CONTAINED BEHAVIOR UNIT TEACHER | PCP | | + +------+ + Encounter Details +--------+ + + + + | Date | Type | Department | Care Team | Description | +--------+ + + + + | 11/26/ | Hospital | [facility] | Toby Ortiz | Leonel osteomyelitis | | 2018 | Encounter | MED CTR OP INFUSION | MD [address] | of right foot (HCC) | | | | [address] | [facility] | (Primary Dx) | | | | [place] | [place] [address] | | | | | [address] | [phone] | | | | | [phone] | | | +--------+ + + + [...]
--- OUTSIDE RECORDS SUMMARY | ~2019-03-28 | XMS | Encounter Summary ---
Demographics + + + | Address | [address] | | | [place] [address] | + + + | Home Phone [...] | [facility] | | | and [place] | + + + | Address | Unknown | + + + | Phone | Unavailable | + + + Support + + + + + | Name | Relationship | Address | Phone | + + + + + | Jessica Shepard | ECON | [address] | | | | | [place] | | | | | [address] | | + + + + + | Bel Solis | ECON | Unknown | | + + + + + | José Shepard | ECON | [place] | | | | | [address] | | + + + + + | Jessica Shepard | ECON | Unknown | | + + + + + Care Team Providers + +------+ + | Care Final Assembly Worker Name | Role | Phone | + +------+ + | Dian Lr NP | PCP | | + +------+ + Encounter Details +--------+ + + + + | Date | Type | Department | Care Team | Description | +--------+ + + + + | 01/03/ | Lab | [facility] | Toby Ortiz | Other acute | | 2018 | Requisition | MED CTR LABORATORY | [address] | osteomyelitis, right | | | | [address] [place] | [facility] | ankle and foot | | | | [place], [place] | [place] [address] | ([facility]); Diabetes | | | | [address] | [phone] | mellitus due to | | | | [phone] | | underlying condition | | | | | | with foot ulcer | | | | | | (CODE) ([facility]); Other | | | | | | long wall mining machine tender (current) | | | | | [...] section. | | | | | ([facility]) Diabetes | | | | | | mellitus due to | | | | | | underlying condition | | | | | | with foot ulcer | | | | | | (CODE) ([facility]) Other | | | | | | detention (current) | | | | | | [...] section. | | | | | ([facility]) Diabetes | | | | | | mellitus due to | | | | | | underlying condition | | | | | | with foot ulcer | | | | | | (CODE) ([facility]) Other | | | | | | detention (current) | | | | | | drug therapy | | + +--------+ + + + | C-REACTIVE PROTEIN | Routin | 01/03/2018 | Other acute | Results for this | | | e | 9:45 AM | osteomyelitis, right | procedure are in the | | | | PDT | ankle and foot | results section. | | | | | ([facility]) Diabetes | | | | | | mellitus due to | | | | | | underlying condition | | | | | | with foot ulcer | | | | | | (CODE) ([facility]) Other | | | | | | long wall mining machine tender (current) | | | | | [...] section. | | | | | ([facility]) Diabetes | | | | | | mellitus due to | | | | | | underlying condition | | | | | | with foot ulcer | | | | | | (CODE) (HCC) Other | | | | | | long wall mining machine tender (current) | | | | | [...] | mL/min/1.73m2 | [facility] | | | [facility] | RATE,ESTIMATED | | MEDICAL | | | | mL/min/1.32s3Eviq than | | CENTER - | | [...] [address] | [place] | [phone] | | [facility] | | [address] | | | - LABORATORY | | [...] + | [facility] | [address] | [place] | [phone] | | [facility] | | [address] | | | - LABORATORY | | [...] + | [facility] | 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
--- OUTSIDE RECORDS SUMMARY | ~2019-03-28 | XMS | Encounter Summary ---
Demographics + + + | Address | [address] | | | [place] [address] | + + + | Home Phone [...] | [facility] | | | and [place] | + + + | Address | Unknown | + + + | Phone | Unavailable | + + + Support + + + + + | Name | Relationship | Address | Phone | + + + + + | Jessica Shepard | ECON | [address] | | | | | [place] | | | | | [address] | | + + + + + | Bel Solis | ECON | Unknown | | + + + + + | José Shepard | ECON | [place] | | | | | [address] | | + + + + + | Jessica Shepard | ECON | Unknown | | + + + + + Care Team Providers + +------+ + | Care Poising Inspector Name | Role | Phone | + +------+ + | Dian Lr NP | PCP | | + +------+ + Encounter Details +--------+ + + + + | Date | Type | Department | Care Team | Description | +--------+ + + + + | 04/05/ | Hospital | [facility] [place] | Christina Da Silva | | | 2013 - | Encounter | MED CTR EMERGENCY | [address] | | | | | [address] | [facility], | | | 04/06/ | | [place] | [place] [address] | | | 2013 | | [address] | [phone] | | | | | [phone] | | | +--------+ + + + [...] Performed At | + + + | [facility] | [place] | | Department [address] [facility] [place] | [facility] | | [ rep ct street1+2] [ rep [facility] | | st zip] Signed | - IMAGING | | | | | Patient Name: KELSILINDAVALARIEREAGAN Physician: | | | SCHR.01 : 1945 Age: 68 Sex: M Unit #: [id number] | | | Exam Date: 04/05/13 Location: ER | | | Report #: [id number] Page: | | | %(RAD)RES..mtdd.print.filter("pg") of %(RAD) | | | RES..mtdd.print.filter("tpg") | | | | | | Accession Number: [id number] | | | ULTRASOUND OF THE ABDOMEN [...] Transcribed Date/Time: 04/06/2013 08:35 | | | Collection Development Librarian: <<Signature on File>> | | | | | | Rico Santiago MD04/06/13 1619 <Electronically signed by Rico Santiago | | | MD> Rico Santiago MD 04/06/13 0827 Collection Development Librarian: | | | [employer] Vrwdrxyczhzgv17/17/14 0835 Christina Da Silva, | | | MD | | + + + + + + + + | Performing | Address | City/State/Zipcode | Phone Number | | Organization | | | | + + + + + | [facility] | [address] | [place], [place] | [phone] | | [facility] | | [address] | | | - IMAGING | | | | + + + + + CT Abdomen Pelvis w Contrast (04/06/2013 7:25 AM PST) + + | Specimen | + + | | + + + + + | Narrative | Performed At | + + + | [facility] | [place] | | Department [address] [place] [address] | [facility] | | [ rep ct street1+2] [ rep [facility] | | st zip] Signed | - IMAGING | | | | | Patient Name: BIAREAGAN Physician: | | | SCHR.01 : 1945 Age: 68 Sex: M Unit #: [id number] | | | Exam Date: 04/05/13 Location: ER | | | Report #: [id number] Page: | | | %(RAD)RES..mtdd.print.filter("pg") of %(RAD) | | | RES..mtdd.print.filter("tpg") | | | | | | Accession Number: [id number] | | | ENHANCED CT ABDOMEN AND [...] | fluid is evident. There are stable xupttrtlfo-ff-uzfarp enlarged | | | kierra caval lymph [...] STABLE SPLENOMEGALY. | | | 4. STABLE GRDEQEEQKY-GF-PMFJVH ENLARGED KIERRA CAVAL LYMPH | | | [...] ER | | | staff by the [facility] radiologist on 04/05/2013 at 2147 hours. | | | Dictated Date/Time: 04/06/2013 07:25 Transcribed | | | Date/Time: 04/06/2013 07:40 Collection Development Librarian: | | | <<Signature on File>> | | | Tez Jacobo | | | MD Yossi04/06/13 1051 <Electronically signed by Tez Sy MD> | | | Tez Sy MD 04/06/13 0725 Collection Development Librarian: | | | [employer] Wiwcidisumnmz62/17/1440 Christina Da Silva, | | | MD | | + + + + + + + + | Performing | Address | City/State/Zipcode | Phone Number | | Organization | | | | + + + + + | [facility] | [address] | [place] | [phone] | | [facility] | | [address] | | | - IMAGING | | [...] - 1.030 | [facility] | | | [place] | | | [facility] | | [...] + | [facility] | [address] | [place] | [phone] | | [facility] | | [address] | | | - LABORATORY | | | | + + + + + | [facility] | [address] | [place] | | | [facility] | | [address] | | | - LABORATORY | | [...] + | [facility] | [address] | [place], [place] | [phone] | | [facility] | | [address] | | | - LABORATORY | | | | + + + + + | [facility] | [address] | [place], [place] | | | [facility] | | [address] | | | - LABORATORY | | [...] + | [facility] | [address] | [place], [place] | [phone] | | [facility] | | [address] | | | - LABORATORY | | | | + + + + + | [facility] | [address] | [place] | | | [facility] | | [address] | | | - LABORATORY | | [...] + | [facility] | [address] | [place], [place] | [phone] | | [facility] | | [address] | | | - LABORATORY | | | | + + + + + | [facility] | [address] | [place], [place] | | | [facility] | | [address] | | | - LABORATORY | | [...] | | | | | REPORT TO [facility] | | | | | | 04/05/13 @ 192 by | | | | | | SHANE | | | | | | Comment: PHONED REPORT TO [facility] 04/05/13 @ 1919 by [...] [address] | [place] | [phone] | | [facility] | | [address] | | | - LABORATORY | | | | + + + + + | [facility] | [address] | [place] | | | [facility] | | [address] | | | - LABORATORY | | | | + + + + + documented in this encounter Visit Diagnoses Not on filedocumented in this encounter
--- OUTSIDE RECORDS SUMMARY | ~2019-03-28 | XMS | Encounter Summary ---
Demographics + + + | Address | [address] | | | [place] [address] | + + + | Home Phone [...] | Organization | [facility] | | | and [place] | + + + | Address | Unknown | + + + | Phone | Unavailable | + + + Support + + + + + | Name | Relationship | Address | Phone | + + + + + | Jessica Shepard | ECON | [address] | | | | | [place] | | | | | [address] | | + + + + + | Bel Solis | ECON | Unknown | | + + + + + | José Shepard | ECON | [place] | | | | | [address] | | + + + + + | Jessica Shepard | ECON | Unknown | | + + + + + Care Team Providers + +------+ + | Care Senior Database Programmer Name | Role | Phone | + [...] Metatarsal | | | | [address] | [place] | | | | | [place] | [address] | | | | | [address] | [phone] | | | | | [phone] | | | +--------+---------+ + + + [...] during the case. [facility] t lower extremity was then scrubbed, prepped [...] -PT/OT ordered Code Status: Full Code Disposition: [facility] Discharge Condition: Stable, very deconditioned and weak at baseline Pleasant, no distress RRR, no m/r/g CTA bilaterally Soft, obese, NT Ext WWP, right foot ulcer with deep wound, slight purulent drainage Contact information for after-discharge care Placement Destination [facility] . Specialty: [facility] Facility Contact information: [address] [place] [address] Discharge Medications New Medications Details acetaminophen [...] signed by: Justin Reyna MD, 11/25/2017 13:01 [facility] documented in this encounter Medications at [...] might be different f rom the original. [facility] Hospitalist Progress Note Reagan Shepard is [...] pantoprazole Mechanical fall -PT/OT ordered Disposition : [facility] as soon as 11/25 Prophylaxis [...] as outlined above. Justin Reyna 11/24/2017 18:16 [facility] Sang Duff MD - 11/24/2017 1:59 PM PDTWe are evaluating the patient for further medical rehabilitatio n services. He does not qualify per [facility] guidelines for full inpatient rehab . I recommend he be transferred to SNF for further skilled therapies once he is cleared acute ly. Justin Rodriguez MD - 11/23/2017 2:24 PM PDT [facility] Hospitalist Progress Note Reagan Shepard is [...] as outlined above. Justin Reyna 11/23/2017 14:24 [facility] Simone Roth DPM - 11/23/2017 1:58 PM PDT Foot & Ankle Surgery Progress Note Simone Shepard Age/Gender 72 y.o. male Location [facility] MEDICAL Attending Karuna-Hwa Lori, MD Hosp Day [...] Value Units Date/Time Culture, Wound, Smear, w/Anaerobe [[id number]] Collected: 11/21/171207 Order Status: Sent Lab Status: In process Updated: 11/21/171249 Specimen: Tissue from Toe, Fifth/Small, Right Narrative: The following orders were created for panel order Culture, Wound, Smear, w/Anaerobe. Procedure Abnormality Status --------- ------ Culture, Wound, Smear[[id number]] In process Culture, Anaerobic[[id number]] In process Please view results for these tests on the individual orders. Culture, Wound, Smear [[id number]] Collected: 11/21/171207 Order Status: Sent Lab Status: In process Updated: 11/21/171249 Specimen: Tissue from Toe, Fifth/Small, Right Culture, Anaerobic [[id number]] Collected: 11/21/171207 Order Status: Sent Lab Status: [...] Simone Aceves DPM 13:58; 11/23/2017 Irasema Dominguez, Home Health Clinician - 11/23/2017 9:43 AM PDT PHARMACY SERVICES: [...] strength, and directions X Pharmacy list names: [facility] X Care Everywhere X [...] Prior to Admission Sig: Patient taking differently SERVICES COORDINATOR as: Hydrocodone-acetaminophen 10-325 mg Take one tablet by mouth four times daily as needed fo r pain Patient taking 1 tablet three times daily as a scheduled dose Best possible SERVICES COORDINATOR medication list after pharmacy review: PT REPORTED [...] performed and electronically signed by Blanquita Bertrand, Clinical Research Nurse 11/22/2017 8:38 Electronically signed by: Irasema Moyer, Home Health Clinician 11/23/2017 9:43 Justin Rodriguez MD - 11/22/2017 5:22 PM PDT [facility] Hospitalist Progress Note Reagan Shepard is [...] as outlined above. Justin Reyna 11/22/2017 17:40 [facility] Danielle Claire, Computer Repair Instructor - 11/22/2017 2:13 PM PDTFormatting of this [...] cerebral hemisphere; Diabetes mellitus (HCC); Stroke (cerebrum) ([facility]); an d TBI (traumatic brain injury) ([facility]). No risk factors for MDR [...] Value Units Date/Time Culture, Wound, Smear, w/Anaerobe [[id number]] Collected: 11/21/171207 Order Status: Sent Lab Status: In process Updated: 11/21/17 1250 Specimen: Tissue from Toe, Fifth/Small, Right Narrative: The following orders were created for panel order Culture, Wound, Smear, w/Anaerobe. Procedure Abnormality Status --------- ------ Culture, Wound, Smear[[id number]] Preliminary result Culture, Anaerobic[[id number]] In process Please view results for these tests on the individual orders. Culture, Wound, Smear [[id number]] Collected: 11/21/171207 Order Status: Completed Lab Status: Preliminary result Updated: 11/22/17 1021 Specimen: Tissue from Toe, Fifth/Small, Right Culture 2+ Lactose Fermenting Gram Negative Bacilli Comment: Identification and susceptibility to follow. Gram Stain Result 2+ White Blood Cells 1+ Epithelial cells 2+ Gram negative rods Culture, Anaerobic [[id number]] Collected: 11/21/17 120 Order Status: Sent Lab Status: In process Updated: 11/21/17 1250 Specimen: Tissue from Toe, Fifth/Small, Right Respiratory Virus Panel, NAAT [[id number]] Collected: 11/20/17 1257 Order Status: Completed Lab [...] pneumoniae DNA Not Detected Narrative: Performed at: [address] [place] [address] [id number] Produce Production Team Member: Jurgen Costa MD, Phone: [phone] Culture, Wound, Smear [[id number]] (Susceptibility) Collected: 11/20/17 0825 Order Status: Completed [...] Sulfamethoxazole <=20 ug/mL Sensitive Culture, Wound, Smear [[id number]] (Susceptibility) Collected: 11/19/17 2031 Order Status: Completed [...] no longer reported. Culture, Respiratory, Lower, Smear [[id number]] Order Status: Sent Lab Status: No result Specimen: Body Fluid from Sputum, Expectorated Culture, Wound, Smear [[id number]] Order Status: Canceled Lab Status: No result Specimen: Tissue from Leg, Left Culture, Blood [[id number]] (Normal) Collected: 11/19/17 1537 Order Status: Completed Lab Status: Preliminary result Updated: 11/20/17 0351 Specimen: Blood from Peripheral Blood Culture No growth: Monitored continually by instrument for 5 days Culture, Blood [[id number]] (Normal) Collected: 11/19/17 1506 Order Status: Completed Lab Status: Preliminary result Updated: 11/20/17 0321 Specimen: Blood from Peripheral Blood Culture No growth: Monitored continually by instrument for 5 days Culture, Urine [[id number]] Collected: 11/19/17 1416 Order Status: Completed Lab [...] Protocol Electronically signed by: Danielle Guillermo, Computer Repair Instructor 11/22/2017 14:13 Associated attestation - Luther Hampton [...] Value Units Date/Time Culture, Wound, Smear, w/Anaerobe [[id number]] Collected: 11/21/171207 Order Status: Sent Lab Status: In process Updated: 11/21/17 125 Specimen: Tissue from Toe, Fifth/Small, Right Narrative: The following orders were created for panel order Culture, Wound, Smear, w/Anaerobe. Procedure Abnormality Status --------- ------ Culture, Wound, Smear[[id number]] In process Culture, Anaerobic[[id number]] In process Please view results for these tests on the individual orders. Culture, Wound, Smear [[id number]] Collected: 11/21/171207 Order Status: Sent Lab Status: In process Updated: 11/21/17 125 Specimen: Tissue from Toe, Fifth/Small, Right Culture, Anaerobic [[id number]] Collected: 11/21/171207 Order Status: Sent Lab Status: [...] cerebral hemisphere; Diabetes mellitus (HCC); Stroke (cerebrum) ([facility]); an d TBI (traumatic brain injury) ([facility]). . No risk factors for [...] Value Units Date/Time Culture, Wound, Smear, w/Anaerobe [[id number]] Collected: 11/21/17 1208 Order Status: Sent Lab Status: In process Updated: 11/21/17 1250 Specimen: Tissue from Toe, Fifth/Small, Right Narrative: The following orders were created for panel order Culture, Wound, Smear, w/Anaerobe. Procedure Abnormality Status --------- ------ Culture, Wound, Smear[[id number]] In process Culture, Anaerobic[[id number]] In process Please view results for these tests on the individual orders. Culture, Wound, Smear [[id number]] Collected: 11/21/17 1208 Order Status: Sent Lab Status: In process Updated: 11/21/17 1250 Specimen: Tissue from Toe, Fifth/Small, Right Culture, Anaerobic [[id number]] Collected: 11/21/17 1208 Order Status: Sent Lab Status: In process Updated: 11/21/17 1250 Specimen: Tissue from Toe, Fifth/Small, Right Respiratory Virus Panel, NAAT [[id number]] Collected: 11/20/17 1257 Order Status: Sent Lab Status: In process Updated: 11/20/17 1302 Specimen: Tissue from Nasopharynx Culture, Wound, Smear [[id number]] Collected: 11/20/17 0825 Order Status: Completed Lab Status: Preliminary result Updated: 11/21/17 0739 Specimen: Tissue from Foot, Right Culture 1+ Gram Negative Jayesh, NOT Pseudomonas Comment: Identification and susceptibility to follow. 1+ Gram Positive Cocci Comment: Isolating for additional information. Gram Stain Result 1+ White Blood Cells No organisms seen Culture, Wound, Smear [[id number]] (Susceptibility) Collected: 11/19/172030 Order Status: Completed Lab [...] <=20 ug/mL Sensitive Culture, Respiratory, Lower, Smear [[id number]] Order Status: Sent Lab Status: No result Specimen: Body Fluid from Sputum, Expectorated Culture, Wound, Smear [[id number]] Order Status: Canceled Lab Status: No result Specimen: Tissue from Leg, Left Culture, Blood [[id number]] (Normal) Collected: 11/19/17 1537 Order Status: Completed Lab Status: Preliminary result Updated: 11/20/17 0351 Specimen: Blood from Peripheral Blood Culture No growth: Monitored continually by instrument for 5 days Culture, Blood [[id number]] (Normal) Collected: 11/19/17 1506 Order Status: Completed Lab Status: Preliminary result Updated: 11/20/17 0321 Specimen: Blood from Peripheral Blood Culture No growth: Monitored continually by instrument for 5 days Culture, Urine [[id number]] Collected: 11/19/17 1416 Order Status: Completed Lab [...] Hoff MD - 11/21/2017 11:05 AM PDT [facility] HOSPITALIST PROGRESS NOTE Patient: Reagan Shepard : 1945: Age: 72 y.o. MedRec: [id number] Admission date: 11/19/2017 Hospital day # : [...] E' Septal Velocity 4.79 cm/s MV Deceleration Stephens 336.24 cm/s2 MV Deceleration Time 332.96 msec [...] Value Units Date/Time Respiratory Virus Panel, NAAT [[id number]] Collected: 11/20/17 1257 Order Status: Sent Lab Status: In process Updated: 11/20/17 1302 Specimen: Tissue from Nasopharynx Culture, Wound, Smear [[id number]] Collected: 11/20/17 0825 Order Status: Completed Lab Status: Preliminary result Updated: 11/21/17 0739 Specimen: Tissue from Foot, Right Culture 1+ Gram Negative Jayesh, NOT Pseudomonas Comment: Identification and susceptibility to follow. 1+ Gram Positive Cocci Comment: Isolating for additional information. Gram Stain Result 1+ White Blood Cells No organisms seen Culture, Wound, Smear [[id number]] (Susceptibility) Collected: 11/19/17 2031 Order Status: Completed [...] + Sulfamethoxazole <=20 ug/mL Sensitive Culture, Blood [[id number]] (Normal) Collected: 11/19/17 1537 Order Status: Completed Lab Status: Preliminary result Updated: 11/20/17 0351 Specimen: Blood from Peripheral Blood Culture No growth: Monitored continually by instrument for 5 days Culture, Blood [[id number]] (Normal) Collected: 11/19/17 1506 Order Status: Completed Lab Status: Preliminary result Updated: 11/20/17 0321 Specimen: Blood from Peripheral Blood Culture No growth: Monitored continually by instrument for 5 days Culture, Urine [[id number]] Collected: 11/19/17 1416 Order Status: Completed Lab [...] Other Pharmacy Consult Nasim Jimenez 11/21/2017 11:05 [facility] Nasim Hoff MD - 11/20/2017 10:04 AM PDT [facility] [place] HOSPITALIST PROGRESS NOTE Patient: Reagan Shepard : 1945: Age: 72 y.o. MedRec: [id number] Admission date: 11/19/2017 Hospital day # : [...] PH UA 5.0 5.0 - 8.0 Specific [place] 1.017 1.001 - 1.030 PROTEIN UA 30 [...] Component Value Units Date/Time Culture, Wound, Smear [[id number]] Collected: 11/20/17 0825 Order Status: Sent Lab Status: In process Updated: 11/20/17 0829 Specimen: Tissue from Foot, Right Culture, Wound, Smear [[id number]] Collected: 11/19/172030 Order Status: Completed Lab Status: Preliminary result Updated: 11/20/17 09 Specimen: Tissue from Leg, Lower, Right Culture 2+ Gram Negative Jayesh, NOT Pseudomonas Comment: Identification and susceptibility to follow. 1+ Gram Positive Cocci Comment: Isolating for additional information. Gram Stain Result No white blood cells (PMNs) seen 1+ Gram negative rods Culture, Blood [[id number]] (Normal) Collected: 11/19/17 1537 Order Status: Completed Lab Status: Preliminary result Updated: 11/20/17 0351 Specimen: Blood from Peripheral Blood Culture No growth: Monitored continually by instrument for 5 days Culture, Blood [[id number]] (Normal) Collected: 11/19/17 1506 Order Status: Completed Lab Status: Preliminary result Updated: 11/20/17 0321 Specimen: Blood from Peripheral Blood Culture No growth: Monitored continually by instrument for 5 days Culture, Urine [[id number]] (Normal) Collected: 11/19/17 1416 Order Status: Completed [...] Other Pharmacy Consult Nasim Jimenez 11/20/2017 10:05 [facility] hadra Walsh Phar mD - 11/20/2017 [...] cerebral hemisphere; Diabetes mellitus (HCC); Stroke (cerebrum) ([facility]); an d TBI (traumatic brain injury) ([facility]). . No risk factors for [...] Component Value Units Date/Time Culture, Wound, Smear [[id number]] Collected: 11/20/17 0825 Order Status: Sent Lab Status: In process Updated: 11/20/17 08 Specimen: Tissue from Foot, Right Culture, Wound, Smear [[id number]] Collected: 11/19/172030 Order Status: Completed Lab Status: Preliminary result Updated: 11/20/17 09 Specimen: Tissue from Leg, Lower, Right Culture 2+ Gram Negative Jayesh, NOT Pseudomonas Comment: Identification and susceptibility to follow. 1+ Gram Positive Cocci Comment: Isolating for additional information. Gram Stain Result No white blood cells (PMNs) seen 1+ Gram negative rods Culture, Respiratory, Lower, Smear [[id number]] Order Status: Sent Lab Status: No result Specimen: Body Fluid from Sputum, Expectorated Culture, Wound, Smear [[id number]] Order Status: Canceled Lab Status: No result Specimen: Tissue from Leg, Left Culture, Blood [[id number]] (Normal) Collected: 11/19/17 1537 Order Status: Completed Lab Status: Preliminary result Updated: 11/20/17 0351 Specimen: Blood from Peripheral Blood Culture No growth: Monitored continually by instrument for 5 days Culture, Blood [[id number]] (Normal) Collected: 11/19/17 1506 Order Status: Completed Lab Status: Preliminary result Updated: 11/20/17 0321 Specimen: Blood from Peripheral Blood Culture No growth: Monitored continually by instrument for 5 days Culture, Urine [[id number]] (Normal) Collected: 11/19/17 1416 Order Status: Completed [...] cerebral hemisphere; Diabetes mellitus (HCC); Stroke (cerebrum) ([facility]); an d TBI (traumatic brain injury) ([facility]). . No risk factors for [...] Value Units Date/Time Culture, Respiratory, Lower, Smear [[id number]] Order Status: Sent Lab Status: No result Specimen: Body Fluid from Sputum, Expectorated Culture, Wound, Smear [[id number]] Order Status: Sent Lab Status: No result Specimen: Tissue from Leg, Left Culture, Blood [[id number]] Collected: 11/19/17 1537 Order Status: Sent Lab Status: In process Updated: 11/19/17 1543 Specimen: Blood from Peripheral Blood Culture, Blood [[id number]] Collected: 11/19/17 1506 Order Status: Sent Lab Status: In process Updated: 11/19/17 1511 Specimen: Blood from Peripheral Blood Culture, Urine [[id number]] Collected: 11/19/17 1416 Order Status: Sent Lab [...] the | | | | PDT | ([facility]) | results section. | + [...] K?MRN: | | | | | | [id number] | | | [id number] | | | his | | | [...] | | | ent/06 | | | b1252d | | | -9b07- | | | [...] | | | St. | | | [place] | | | y H. | | [...] | | | St. | | | [place] | | | y | | | [...] [address] | [place] | [phone] | | [facility] | | [address] | | | - LABORATORY | | [...] [address] | [place] | [phone] | | [facility] | | [address] | | | - LABORATORY | | [...] [address] | [place] | [phone] | | [facility] | | [address] | | | - LABORATORY | | [...] | | | | mg/dL | [facility] | | | | | | MEDICAL | | | | | | CENTER - | | | | | | LABORATORY | | + + + + + + | eGFR if not | >60Comment: GLOMERULAR | >=60 | [facility] | | | | FILTRATION | mL/min/1.73m2 | [facility] | | | [place]TS[place] | RATE,ESTIMATED | | MEDICAL | | | | mL/min/1.06w6Rnaq than | | CENTER - | | [...] | | | | mg/dL | [facility] | | | | | [...] [address] | [place] | [phone] | | [facility] | | [address] | | | - LABORATORY | | [...] [facility] | | | | | | [facility] | | | | | | MEDICAL | | | | | | CENTER - | | | | | | LABORATORY | | + + + + + + | RBC | 4.60 | 4.30 - 5.70 | [facility] | | | | | M/uL | [facility] | | | | | [...] + | [facility] | [address] | [place] | [phone] | | [facility] | | [address] | | | - LABORATORY | | [...] ST. | [address] | [place], [place] | [phone] | | [facility] | | [address] | | | - LABORATORY | | [...] [address] | [place] | [phone] | | [facility] | | [address] | | | - LABORATORY | | [...] + | [address] | [address] | [place] | [phone] | | [facility] | | [address] | | | - LABORATORY | | [...] [address] | [place] | [phone] | | [facility] | | [address] | | | - LABORATORY | | [...] | mL/min/1.73m2 | [facility] | | | [place] | RATE,ESTIMATED | | MEDICAL | | | | mL/min/1.35p2Vfst than | | CENTER - | | [...] [address] | [place] | [phone] | | [facility] | | [address] | | | - LABORATORY | | [...] + | [address] | [address] | [place] | [phone] | | [facility] | | [address] | | | - LABORATORY | | [...] [address] | [place] | [phone] | | [facility] | | [address] | | | - LABORATORY | | [...] [address] | [place] | [phone] | | [facility] | | [address] | | | - LABORATORY | | [...] + | [facility] | [address] | [place] | [phone] | | [facility] | | [address] | | | - LABORATORY | | [...] + | [facility] | [address] | [place] | [phone] | | [facility] | | [address] | | | - LABORATORY | | [...] ST. | [address] | [place], [place] | [phone] | | [facility] | | [address] | | | - LABORATORY | | [...] mL/min/1.73m2 | [facility] | | | [place] | RATE,ESTIMATED | | MEDICAL | | | | mL/min/1.93g7Kzmo than | | CENTER - | | [...] [address] | [place] | [phone] | | [facility] | | [address] | | | - LABORATORY | | [...] + | [facility] | [address] | [place] | [phone] | | [facility] | | [address] | | | - LABORATORY | | [...] [address] | [place] | [phone] | | [facility] | | [address] | | | - LABORATORY | | [...] [address] | [place] | [phone] | | [facility] | | [address] | | | - LABORATORY | | [...] + | [facility] | [address] | [place] | [phone] | | [facility] | | [address] | | | - LABORATORY | | [...] + | [facility] | [address] | [place], [place] | [phone] | | [facility] | | [address] | | | - LABORATORY | | [...] [address] | [place] | [phone] | | [facility] | | [address] | | | - LABORATORY | | [...] ST. | [address] | [place] | [phone] | | [facility] | | [address] | | | - LABORATORY | | [...] [address] | [place] | [phone] | | [facility] | | [address] | | | - LABORATORY | | [...] mL/min/1.73m2 | [facility] | | | [place] | RATE,ESTIMATED | | MEDICAL | | | | mL/min/1.34e4Ayub than | | CENTER - | | [...] + | [facility] | [address] | [place] | [phone] | | [facility] | | [address] | | | - LABORATORY | | [...] ST. | [address] | [place], [place] | [phone] | | [facility] | | [address] | | | - LABORATORY | | [...] [address] | [place] | [phone] | | [facility] | | [address] | | | - LABORATORY | | [...] [address] | [place] | [phone] | | [facility] | | [address] | | | - LABORATORY | | [...] [address] | [place] | [phone] | | [facility] | | [address] | | | - LABORATORY | | [...] [address] | [place] | [phone] | | [facility] | | [address] | | | - LABORATORY | | [...] + | [facility] | [address] | [place] | [phone] | | [facility] | | [address] | | | - LABORATORY | | [...] + | [facility] | [address] | [place] | [phone] | | [facility] | | [address] | | | - LABORATORY | | [...] + | [address] | [address] | [place] | [phone] | | [facility] | | [address] | | | - LABORATORY | | [...] [address] | [place] | [phone] | | [facility] | | [address] | | | - LABORATORY | | [...] ST. | [address] | [place] | [phone] | | [facility] | | [address] | | | - LABORATORY | | [...] [address] | [place] | [phone] | | [facility] | | [address] | | | - LABORATORY | | [...] + | [facility] | [address] | [place] | [phone] | | [facility] | | [address] | | | - LABORATORY | | [...] ST. | [address] | [place] | [phone] | | [facility] | | [address] | | | - LABORATORY | | [...] | | FILTRATION | mL/min/1.73m2 | [facility] | | | MONTS[place]IAN | RATE,ESTIMATED | | MEDICAL | | | | mL/min/1.56r9Qypn than | | CENTER - | | [...] | | | | mg/dL | [facility] | | | | | [...] [address] | [place] | [phone] | | [facility] | | [address] | | | - LABORATORY | | [...] [address] | [place] | [phone] | | [facility] | | [address] | | | - LABORATORY | | [...] + | [facility] | [address] | [place] | [phone] | | [facility] | | [address] | | | - LABORATORY | | | | + + + + + Surgical Pathology Exam (11/21/2017 12:00 AM PDT) + + | Specimen | + + | | + + + + + | Narrative | Performed At | + + + | SPECIMEN(S): A RIGHT 5TH MEATATRSAL SPECIMEN SOURCE: A. RIGHT | [facility] | | 5TH MEATATRSAL CLINICAL HISTORY: 5th metatarsal diabetic | INCYTE | | infection. FINAL PATHOLOGIC DIAGNOSIS: Right 5th metatarsal: - | | | Bone with focal serous fat necrosis with associated acute and | | | chronic inflammation suggestive of osteomyelitis. JVR:[facility]:C2NR | | | MICROSCOPIC [...] decalcified in decal | | | STAT).. am:AMB:[facility] PERFORMING LABORATORY: The technical | | | component was performed by [facility], [address] [place] [address] | | | [facility] [address] (Snipper: Khadra Gill MD; CLIA# | | | [id number]). Professional interpretation was performed by [employer] | | | [facility], [address] | | | [facility] [address] [place] [address] (Snipper: Ambrosio | | | Madison Hall). Diagnostician: Ambrosio Hall MD | | | Pathologist Electronically Signed 11/23/2017 | | + + + + +---------+ + + | Performing | Address | City/State/Zipcode | Phone Number | | Organization | | | | + +---------+ + + | [facility] | | | | | [place] | | | | + +---------+ + [...] [address] | [place] | [phone] | | [facility] | | [address] | | | - LABORATORY | | [...] | | | | | | n [place] | | | | | + +---------+ [...] [address] | [place] | [phone] | | [facility] | | [address] | | | - LABORATORY | | [...] + | Performed at: 01 - [facility] [place] [address], | REFERENCE LAB | | [place], [place] [id number] Produce Production Team Member: Jurgen Costa MD, Phone: | [facility] | | [phone] | | + + + + + + + + | Performing | Address | City/State/Zipcode | Phone Number | | Organization | | | | + + + + + | REFERENCE LAB | [address] | [place] [address] | [phone] | | [facility] | [address] [...] [address] | [place] | [phone] | | [facility] | | [address] | | | - LABORATORY | | [...] [address] | [place] | [phone] | | [facility] | | [address] | | | - LABORATORY | | [...] + | [facility] | [address] | [place] | [phone] | | [facility] | | [address] | | | - LABORATORY | | [...] [address] | [place] | [phone] | | [facility] | | [address] | | | - LABORATORY | | [...] + | [facility] | [address] | [place] | [phone] | | [facility] | | [address] | | | - LABORATORY | | [...] ST. | [address] | [place] | [phone] | | [facility] | | [address] | | | - LABORATORY | | [...] [address] | [place] | [phone] | | [facility] | | [address] | | | - LABORATORY | | [...] | | | | | | [facility] | | | | [...] + | [facility] | [address] | [place] | [phone] | | [facility] | | [address] | | | - LABORATORY | | [...] [address] | [place] | [phone] | | [facility] | | [address] | | | - LABORATORY | | [...] | | FILTRATION | mL/min/1.73m2 | [facility] | | | MONTSERR[place]IAN | RATE,ESTIMATED | | MEDICAL | | | | mL/min/1.86a7Luut than | | CENTER - | | [...] | | | | mg/dL | [facility] | | | | | [...] [address] | [place] | [phone] | | [facility] | | [address] | | | - LABORATORY | | [...] [address] | [place] | [phone] | | [facility] | | [address] | | | - LABORATORY | | [...] + | [facility] | [address] | [place] | [phone] | | [facility] | | [address] | | | - LABORATORY | | [...] ST. | [address] | [place] | [phone] | | [facility] | | [address] | | | - LABORATORY | | [...] [address] | [place] | [phone] | | [facility] | | [address] | | | - LABORATORY | | [...] + | [address] | [address] | [place] | [phone] | | [facility] | | [address] | | | - LABORATORY | | [...] + | [facility] | [address] | [place] | [phone] | | [facility] | | [address] | | | - LABORATORY | | [...] [address] | [place] | [phone] | | [facility] | | [address] | | | - LABORATORY | | [...] + | [facility] | [address] | [place] | [phone] | | [facility] | | [address] | | | - LABORATORY | | [...] | | FILTRATION | mL/min/1.73m2 | [facility] | | | MONTS[place]IAN | RATE,ESTIMATED | | MEDICAL | | | | mL/min/1.65q9Kcoi than | | CENTER - | | [...] | | | | mg/dL | [facility] | | | | | [...] [address] | [place] | [phone] | | [facility] | | [address] | | | - LABORATORY | | [...] | Basophils | | K/uL | [facility] | | | | [...] [address] | [place] | [phone] | | [facility] | | [address] | | | - LABORATORY | | [...] | REFERENCE | | | | of [place] Pathologists | | LAB [facility] | | | | standards require a | | - [facility] | | | | culture to beperformed | | | | | | on CSF specimens | | | | | | submitted for bacterial | | | | | | antigen testing.(CAP | | | | | | [id number]) Urine | | | | | | specimens will not be | | | | | | cultured. | | | | + + + + + + + + | Specimen | + + | Urine | + + + + + | Narrative | Performed At | + + + | Performed at: 01 - [facility] [address] [facility], | REFERENCE LAB | | [place], [place] [id number] Produce Production Team Member: Christ Deal MD, Phone: | NIKKI [facility]ZON | | [phone] | | + + + + + + + + | Performing | Address | City/State/Zipcode | Phone Number | | Organization | | | | + + + + + | REFERENCE LAB | [address] | [place] [address] | [phone] | | NIKKI - [facility] | Drive [facility] | | | + + + [...] [address] | [place] | [phone] | | [facility] | | [address] | | | - LABORATORY | | [...] - 1.030 | [facility] | | | [place] | | | [facility] | | [...] [address] | [place] | [phone] | | [facility] | | [address] | | | - LABORATORY | | [...] | | | | | | use [place] 10/325 if ordered. If | | | [...] scheduled: AC, NPO, Daytime | | | 4849-2496 Use NIGHT DOSE for | | | doses scheduled: HS, 3AM, | | | Nighttime 6084-0054, | | + +---+ | | | [...]
--- OUTSIDE RECORDS SUMMARY | ~2019-03-28 | XMS | Encounter Summary ---
Demographics + + + | Address | [address] | | | [place] [address] | + + + | Home Phone [...] Organization | [facility] | | | and [place] | + + + | Address | Unknown | + + + | Phone | Unavailable | + + + Support + + + + + | Name | Relationship | Address | Phone | + + + + + | Jessica Shepard | ECON | [address] | | | | | [place] | | | | | [address] | | + + + + + | Bel Solis | ECON | Unknown | | + + + + + | José Shepard | ECON | [place] | | | | | [address] | | + + + + + | Jessica Shepard | ECON | Unknown | | + + + + + Care Team Providers + +------+ + | Care Mobile Marketing Manager Name | Role | Phone | + +------+ + | Dian Lr NP | PCP | | + +------+ + Encounter Details +--------+ + + + + | Date | Type | Department | Care Team | Description | +--------+ + + + + | 05/14/ | Hospital | [facility] IP | Conversion | Pain | | 2017 | Encounter | CONVERSION [address]P [address] | Transaction, | | | | | [address] | Provider Unknown | | | | | [place] | [phone] | | | | | [address] | | | | | | [phone] | | | +--------+ + + + [...]
--- OUTSIDE RECORDS SUMMARY | ~2019-03-28 | XMS | Encounter Summary ---
Demographics + + + | Address | [address] | | | [place] [address] | + + + | Home Phone [...] Organization | [facility] | | | and [place] | + + + | Address | Unknown | + + + | Phone | Unavailable | + + + Support + + + + + | Name | Relationship | Address | Phone | + + + + + | Jessica Shepard | ECON | [address] | | | | | [place] | | | | | [address] | | + + + + + | Bel Solis | ECON | Unknown | | + + + + + | José Shepard | ECON | [place] | | | | | [address] | | + + + + + | Jessica Shepard | ECON | Unknown | | + + + + + Care Team Providers + +------+ + | Care Event Av Operator Name | Role | Phone | + +------+ + | Dian Lr NP | PCP | | + +------+ + Encounter Details +--------+ + + + + | Date | Type | Department | Care Team | Description | +--------+ + + + + | 05/14/ | Hospital | [facility] | Marlin Mckeon | Received intravenous | | 2017 - | Encounter | [facility] | MD [place] | tissue plasminogen | | | | CARE FLOOR [address] [place] | activator (tPA) in | | 05/19/ | | [place] | [address] | emergency | | 2017 | | [facility] [place] | | department; Acute | | | | [address] | | left hemiparesis | | | | [phone] | | ([facility]); 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 | | | | | | with hyperglycemia, | | | | | | with long-term | | | | | | current use of | | | | | | insulin ([facility]); | | | | | | Ischemic stroke | | | | | | diagnosed during | | | | | | current admission | | | | | | ([facility]); 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, with | | | | | | long-term current | | | | | | use of insulin | | | | | | ([facility]); Moderate | | | | | | protein-calorie | | | | | | malnutrition ([facility]); | | | | | | Gastroesophageal [...] Date of Service: 05/19/16 105 Status: Signed Cable Repairer: Jeff Corley DO (Physician) [facility] Service: Hospitalist Discharge Summary Date of [...] Tolerated Follow up: Saurabh Fritz, DO [address] [facility] [address] [place] [address] Medication List START taking these medications atorvastatin [...] Date of Service: 05/19/16 1231 Status: Signed Cable Repairer: Sandra Cedillo RN (Registered Nurse) Report given to ELLIOT M[facility]quez at [facility]. Pt aware of transfer plan. Facility van to pick pt up at 1300. onver elder Transaction, Provider Unknown - 05/19/2016 11:41 AM PST Case Management by Lisa Hogan RN at 05/19/16 1141 Author: Lisa Hogan RN Service: (none) Author Type: Registered Nurse Filed: 05/19/16 1142 Date of Service: 05/19/16 1141 Status: Signed Cable Repairer: Lisa Hogan RN (Registered Nurse) 05/19/16 1128 Anticipated Disposition Facility Type long term facility Discharge Appointment Time 1300 Medicare Important Message (ROS) Given Jail Facility Other (comment) ([facility]/ranson) Disposition: [facility] Transportation: W/C van provided by facility All orders, signed AVS, and prescriptions have been faxed All DC paperwork completed Patient and family in agreement with discharge plan Medicare important message (Given or N/A): yes Tc to spouse Jessica who agrees with d/c plan to [facility]. Negar onver elder Transaction, Provider Unknown - 05/19/2016 11:40 AM PST Therapy Progress Note by Theresa Gonzales PT at 05/19/16 1140 Author: Theresa Gonzales PT Service: (none) Author Type: Physical Therapist Filed: 05/19/16 1140 Date of Service: 05/19/16 1140 Status: Signed Cable Repairer: Theresa Gonzales PT (Physical Therapist) 05/19/16 1139 [...] Author: HARIS Lemon Service: (none) Author Type: Program Director/Air Personality Filed: 05/19/16 1114 Date of Service: 05/19/16 1102 Status: Signed Cable Repairer: HARIS Lemon (Program Director/Air Personality) 05/19/16 1100 Discharge Planning Evaluation Admitting Diagnosis CVA, TPA given Anticipated Disposition Facility Type long term facility Jail Facility Other (comment) ([facility]) EDITORIAL MANAGER p/c Cheryl Bashir [employer] [employer] Coordinator, states she received phone call from [facility], asking for authorization. EDITORIAL MANAGER assisted Pt and Pt (Jessica Shepard [phone]) regarding VA GEC form, assisted with form and faxed to [employer] [facility] [employer] Coordinator - Cheryl Bashir [phone] ext. [phone]. During filli ng out GEC form, Pt stated "We wanted [facility] over [facility], but we were told [facility] was denied by [place]." EDITORIAL MANAGER provided choice of accepting facili ties. EDITORIAL MANAGER p/c Carlos with [facility] states they will accept Pt, they are VA contracted, if Pt choice. EDITORIAL MANAGER met with Negar ZARATE regarding the discrepancy of information about Pt choice. EDITORIAL MANAGER with Negar ZARATE met with Pt and Pt (Jessica Shepard) regarding choice, after lengthy discussion, they went back and forth regarding facilities, Pt finally chose [facility]. DCP: [facility] NAOMY GALAN, Program Director/Air Personality [phone] cell onver elder Transaction, Provider Unknown - 05/19/2016 8:06 AM PST Case Management by Lisa Hogan RN at 05/19/16 0806 Author: Lisa Hogan RN Service: (none) Author Type: Registered Nurse Filed: 05/19/162 Date of Service: 05/19/16805 Status: Addendum Cable Repairer: Lisa Hogan RN (Registered Nurse) Related Notes: Original Note by Lisa Hogan RN (Registered Nurse) filed at 05/19/16 082 1 0800:Tc to Carlos at [facility]/[phone] re VA benefits and acceptance. Tc to Jessica, she states she rather have pt go to [facility] and not [facility]. Went to meet with pt and he spoke to Jessica over the phone and agrees with going to [facility]. Tc to Jimmy at [facility], left [facility] re acceptance. 1030: per Jimmy, they can transport pt today at 1300 via w/c van. Jimmy states they are VA contracted and pt does not have to move to another [place] facility after the 20 days of medicar e have . Pt can be transitioned to VA on the if the [employer] [employer] paperwork is submitt ed now to the VA. Notified pt and spouse Jessica as this was their concern. EDITORIAL MANAGER Naomy was given referral to assist in completing the GE process. Faxed PT/MD notes to [facility] coordinator per her request. Notified primary RN and Dr Corley about d/c. Negar onver elder Transaction, Provider Unknown - 05/19/2016 5:25 AM PST Nurse Progress Note by Hero You RN at 05/19/16524 Author: Hero You RN Service: (none) Author Type: Registered Nurse Filed: 05/19/16524 Date of Service: 05/19/16524 Status: Signed Cable Repairer: Hero You RN (Registered Nurse) No acute changes from previous end of shift report. Will continue monitoring. Hero You RN 05/19/2016 onver elder Transaction, Provider Unknown - 05/18/2016 6:32 PM PST Nurse Progress Note by Sandra Cedillo RN at 05/18/161831 Author: Sandra Cedillo RN Service: (none) Author Type: Registered Nurse Filed: 05/18/161833 Date of Service: 05/18/161831 Status: Signed Cable Repairer: Sandra Cedillo RN (Registered Nurse) Pt had [...] Service: Hospitalist Author Type: Physician Filed: 05/18/16 1252 Date of Service: 05/18/16 1252 Status: Signed Cable Repairer: Jeff Corley DO (Physician) PROGRESS NOTE 05/18/2016 [...] stroke diagnosed during current admission ([facility]) Active Problems: Received intravenous tissue plasminogen activator (tPA) in emergency department Acute left hemiparesis ([facility]) Type 2 diabetes mellitus with hyperglycemia, with long-term current use of insulin ([facility]) Type 2 diabetes mellitus with diabetic neuropathy, with long-term current use of insulin ([facility]) Moderate protein-calorie malnutrition (HCC) GERD (gastroesophageal reflux disease) Hypokalemia Essential hypertension, benign Length of stay: 4 days DVT prophylaxis: enox Code status: full code Disposition: inpatient SUBJECTIVE Patient seen/examined with rounding team, lying in bed, had an extended conversation with c ase billing manager about which SNF's/towns he liked and [...] Date of Service: 05/18/16 1150 Status: Signed Cable Repairer: Jenn Richey RD (Registered Dietitian) 05/18/16 1057 [...] Physical Findings Digestive System (Mouth to Rectum) BUTTON BRADDER following for dysphagia Anthropometrics Weight change Wt [...] Date of Service: 05/18/16 1131 Status: Addendum Cable Repairer: Lisa Hogan RN (Registered Nurse) Related Notes: Original Note by Lisa Hogan RN (Registered Nurse) filed at 05/18/16 154 2 1000: Tc from Shara([phone] ext [phone]) with VA "Gec" program regardign snf placemen t. Per Ly, pt needs to go to a VA contracted snf if he wants the VA to provide for copay after his medicare coverage no longer pays 100%. Ly statesthese are some available VA c ontracted snfs: [facility], [place], [facility], [facility]. [facility] are not contracted with them. Per Ly, if paperwork(PT/MD notes and GEC form ) is submitted now, they can admit pt to a VA contracted snf under VA benefits. Informed Salo wang will discuss with pt and spouse Jessica. Per email from Sheila with IPR, pt declined for IPR. 1130:Tc to Jinny/[facility], she states pt dial painter nurse's note, pt has been restless an d regulatory consultant light continously and on IV fentanyl, she is not sure she has the man power to acc ept pt. 1200: Tc to spouse Jessica, , [facility] regarding snf placement. Met with pt regarding snf and VA benefits. Pt states he will discuss with spouse, but would consider going to [facility]. Sent e-referrals. Pt states Jessica will be here this evening and would like to discuss with CM options. Informed pt [facility]) has accepted pt but they are not VA contracted. 1300: per rounding with pt, he wants referral sent to [facility] too. Referral sent. Referral sent to HARIS Nichols to assist with "GEC" paperwork for the VA 1500: Tc to Carlos with [facility]([phone]), he thinks pt can be accepted when medically roseann dy, but first have to review pt's VA benefits to make sure rehab is covered. Tc to Jessica again,([phone]) left [facility] about rehab placement. Attempted to call Shonda reilly at work,[phone], busy signal. 1530: per Jimmy at [facility], they can accept pt when he is medically ready and if he wants to go there. Notified pt Dunia friedman Transaction, Provider Unknown - 05/18/2016 10:37 AM PST Progress Notes by Khadra Osman RD, DANNY at 05/18/16 1037 Author: Khadra Osman RD, CDE Service: (none) Author Type: Varying Exceptionalities Teacher Filed: 05/18/16 1044 Date of Service: 05/18/16 1037 Status: Signed Cable Repairer: Khadra Osman RD, CDE (Varying Exceptionalities Teacher) Met with pt. Reports he's had diabetes for 6 years. He gets all medications through the [facility] for his diabetes. States his of 49 years also has insulin dependent diabetes. At [facility] he was prescribed: 50 units of [...] his blood sugar. Reports he's been through ulike es education classes two times - but [...] the VA. Khadra Osman RD, MPH, CDE, Varying Exceptionalities Teacher 05/18/2016 10:43 AM onver elder Transaction, Provider Unknown - 05/18/2016 4:36 AM PST Nurse Progress Note by Hero You RN at 05/18/16435 Author: Hero You RN Service: (none) Author Type: Registered Nurse Filed: 05/18/167 Date of Service: 05/18/16435 Status: Signed Cable Repairer: Hero You RN (Registered Nurse) Pts VSS, [...] 05/17/161701 Date of Service: 05/17/161699 Status: Signed Cable Repairer: Sandra Cedillo RN (Registered Nurse) Pt anxious [...] Date of Service: 05/17/16 1500 Status: Signed Cable Repairer: Cheryl Rodney PT (Physical Therapist) 05/17/16 1500 PT Last Visit PT Received On 05/17/16 Reason for Treatment Stroke Requires PT Follow Up Yes Follow up PT Only? Yes (complexity) Assistance Required 2 person Baker Bread Needed No Precautions UE Precaution(s) LUE Precautions/WB [...] lift for transfer back to bed - RN/CLOTH GRADER aware of pt positioning/abilities and need for [...] Barriers to Discharge Cognitive Deficits Impacting Functional Burnett;Self-care Defici ts Impacting Functional Burnett;Physical Deficits Impacting Functional Burnett;Malik rological Impairment (see comment) Recommendation Comments Pt [...] Notes by Jeff Corley DO at 05/17/16 2048 Author: Jeff Corley DO Service: Hospitalist Author Type: Physician Filed: 05/17/16 1600 Date of Service: 05/17/16 1238 Status: Addendum Cable Repairer: Jeff Corley DO (Physician) Related Notes: Original Note by Jeff Corley DO (Physician) filed at 05/17/16 3626 PROGRESS NOTE 05/17/2016 for Reagan Shepard on the hospitalist service. ASSESSMENT & PLAN Acute CVA S/p tPA, monitored in ICU, neuro stable. Continue aspirin, statin. BP has been in normal range, not an antihypertensives here or at home. Therapies working with patient, hope to transfer to [facility] pending insurance authorization (me mccann). May [...] stroke diagnosed during current admission ([facility]) Active Problems: Received intravenous tissue plasminogen activator (tPA) in emergency department Acute left hemiparesis (HCC) Type 2 diabetes mellitus with hyperglycemia, with long-term current use of insulin (HCC) Type 2 diabetes mellitus with diabetic neuropathy, with long-term current use of insulin ([facility]) Moderate protein-calorie malnutrition (HCC) GERD (gastroesophageal reflux [...] Date of Service: 05/17/16 1144 Status: Addendum Cable Repairer: Lisa Hogan RN (Registered Nurse) Related Notes: Original Note by Lisa Hogan RN (Registered Nurse) filed at 05/17/16 130 3 Per rounding with pt, he is A&O x4. Pending IPR. Sent email to Sheila at [facility] for status. Left VM for PT regarding f/u with pt 1230:Tc to spouse Jessica regarding snf placement in case [facility] declines pt. Jessica upset as s he thought "doctor" had told her son yesterday that pt was a good candidate for IPR and was accepted to [facility]. Informed Jessica Alicia has not made decision yet as he is "following pt". Jessica wants referrals sent to [facility] [place]. Jessica asks that we dont mention to pt snf placement yet until a decision i s made about IPR. Negar onver elder Transaction, Provider Unknown - 05/17/2016 10:05 AM PST Therapy Progress Note by TOLU Xiao/Parminder at 05/17/16 1005 Author: GABE Xiao Service: (none) Author Type: Occupational Therapist Filed: 05/17/16 1240 Date of Service: 05/17/16 1005 Status: Signed Cable Repairer: GABE Xiao (Occupational Therapist) 05/17/16 1005 OT Last Visit OT Received On 05/17/16 Reason for Treatment Stroke Requires OT Follow Up Awaiting tx order OT Eval/Reassessment Date 05/17/16 Assistance Required 2 person Baker Bread Needed No Family/Caregiver Present No Precautions Other Precautions high fall risk, L hemiparesis Other Comments Comments OT eval orders received/verified. Pt willing to participate in OT this AM. Chart r ramon-relevant to OT evaluation: Left sided weakness, s/p IV rtPA with little improvement, due to right bogdan infarction, most likely [id number] in etiology related to uncontrol led DM; [...] Days Recommendation Recommendation Rehab consult Equipment Recommended Saw Superintendent;Bedside commode;Elastic shoe laces;HHSH OT Ready for Discharge [...] note for PLOF Prior Function Level of Burnett Independent with functional mobility;Independent with ADLs;Independe nt [...] equipment (bed level) LE Dressing Adaptive Equipment Saw Superintendent;Dressing stick Arm Goals Pt Will Tolerate SROM [...] order Recommendation Recommendation Rehab consult Equipment Recommended Saw Superintendent;Bedside commode;Elastic shoe laces;HHSH OT Ready for Discharge [...] stroke, neurological resource center guide Moderate - 73474 High - 61063 History Expanded review of medical records; additional review of physical, cognitive, or ps ychosocial skills Examination Identification of 5 or more performance deficits Decision Making Presents with comorbidities; significant modification of tasks or assistan ce is needed to complete eval Clinical Decision Making Complexity: Moderate 04175 onver elder Harris Provider Unknown - 05/17/2016 5:44 AM PST Nurse Progress Note by Hero You RN at 05/17/1644 Author: Hero You RN Service: (none) Author Type: Registered Nurse Filed: 05/17/16 0550 Date of Service: 05/17/16543 Status: Signed Cable Repairer: Hero You RN (Registered Nurse) Pts VSS, [...] 05/16/161652 Date of Service: 05/16/161651 Status: Addendum Cable Repairer: Teena Matthew RN (Registered Nurse) Related Notes: [...] 1514 Date of Service: 05/16/161511 Status: Signed Cable Repairer: Wing Nina Alicia MD (Physician) Patient seen [...] Calculation (Bezet) 05/14/2016 455 Final Calculated P Castile 05/14/2016 28 Final Calculated R Castile 05/14/2016 -3 Final Calculated T Castile 05/14/2016 38 Final Diagnosis 05/14/2016 Final Value:Normal [...] De La Garza Service: (none) Author Type: Sugar Mill Worker Filed: 05/16/16 1213 Date of Service: 05/16/16 1205 Status: Signed Cable Repairer: HARIS De La Garza (Sugar Mill Worker) 05/16/16 1201 Discharge Planning Evaluation Admitting [...] Yes Name of Pharmacy [facility] [place] [place] [facility] [place] Previous home health equipment Yes;Comment (Pt uses a cane at baseline) Vascular access device No Ostomy/Drains/Appliances (TBD) Anticipated Disposition Facility Type Other (Comment) Met with patient Reagan Shepard and discussed discharge planning. 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 The patient resides with his in [facility]. The patient was alert and oriented. [...] disease, and TBI who initially presented [facility] with left facial droop and left-sided weakness. He had an episode of urinary incontinence and fall, EMS called and patient was brought to [facility] ED. " "Patient is also complaining of a 3-week history of intermittent left-sided weakness and fal ls. He uses a cane for ambulation." Patient's PCP is: Patient's insurance: [employer] & Medicare Coverage concerns: no Medication coverage/concerns: no Rx Bedside Delivery: Preferred Pharmacy: [facility] [employer] [facility] resources utilized / needed: TBD Assistance in transportation: Spouse - Jessica Shepard [phone] or work [phone] Identification of any specific education / training: no Barriers to Discharge / Alternative housing needed: TBD Anticipated DCP: Home [facility] De La Garza John Hill MD - 05/16/2016 8:26 AM PST Progress Notes by John Murdock MD at 05/16/16825 Author: John Murdock MD Service: (none) Author Type: Physician Filed: 05/16/16 1131 Date of Service: 05/16/16825 Status: Addendum Cable Repairer: John Murdock MD (Physician) Related Notes: Original Note by John Murdock MD (Physician) filed at 05/16/16 1108 [facility] Service: Hospitalist Progress Note Pt: Reagan Shepard AGE/SEX: 71 y.o. male : 1945 ROOM: [facility]/7124-1 REQUESTING PROVIDER: John Murdock MD TODAY'S DATE: 05/16/2016 Hospital Day: LOS: 2 days + past medical history of DM 2 with neuropathy, DDD and TBI Transfer from [facility] A fter seen there with left facial droop and left-sided weakness.,episode of urinary incontin ence and fall, .Acute infarction in the right bogdan, CT head unremarkablMRI e, no ICH. As N IHSS score of 14 TPA Was liza marlowfer to [facility] for further care SUBJECTIVE aprt [...] hours. No results for input(s): PHART, PO2ART, NKO1QLS, N9WLWAGI, BEART in the last 168 hours. No results for input(s): APTT, INR, PTT in the last 168 hours. No results for input(s): TSH, T3FREE, FREET4 in the last 168 hours. No results for input(s): CKTOTAL, TROPONINI, TROPONINT, CKMBINDEX in the last 168 hours. PROBLEM LIST Principal Problem: Ischemic stroke diagnosed during current admission ([facility]) Active Problems: Received intravenous tissue plasminogen activator (tPA) in emergency department Acute left hemiparesis ([facility]) Type 2 diabetes mellitus with hyperglycemia, with long-term current use of insulin (HCC) Type 2 diabetes mellitus with diabetic neuropathy, with long-term current use of insulin (HCC) Moderate protein-calorie malnutrition (HCC) GERD (gastroesophageal reflux disease) Hypokalemia Essential hypertension, benign ASSESSMENT & PLAN Principal Problem: Ischemic stroke-Acute left hemiparesis ([facility]) Ischemic stroke s/p TPA (05/14) ASA statin [...] this point his current strok are pattern network cable installer ior circulation at this point asymtomatic carotid stenosiis Consider and need f/ up vascular at out patie nt once d/c Angelica Pearson M D - 05/16/2016 8:26 AM PST Progress Notes by Angelica Bernardo MD at 05/16/16825 Author: Angelica Bernardo MD Service: Neurology Author Type: Physician Filed: 05/16/16840 Date of Service: 05/16/16825 Status: Signed Cable Repairer: Angelica Bernardo MD (Physician) Subjective: Patient seen [...] due to right bogdan infarction, most likely [id number] in etiology related to uncontrolled DM. 2- [...] patient and no documen tation), recommend terminal press operator Holter (30 days). 8. General care [...] 05/16/16514 Date of Service: 05/16/16512 Status: Signed Cable Repairer: Hero You RN (Registered Nurse) Pt A&OX4, [...] 05/15/161938 Date of Service: 05/15/161930 Status: Addendum Cable Repairer: Sandra Cedillo RN (Registered Nurse) Related Notes: [...] (none) Author Type: Physical Therapist Filed: 05/15/16 1279 Date of Service: 05/15/16 1242 Status: Signed Cable Repairer: Douglas Coelho PT (Physical Therapist) 05/15/16 1242 PT Last Visit PT Received On 05/15/16 Reason for Treatment Stroke Requires PT Follow Up Awaiting tx order Follow up PT Only? Yes (complexity) PT Eval/Reassessment Date 05/15/16 Assistance Required 2 person Baker Bread Needed No Home Environment Type of Home Home two story Home Exterior Layout Entry steps none Home Interior Layout Flight one;Rail on L ascending;Lives on main level with bedroom/bathro om;Walker accessible Bathroom Shower/Tub Tub/shower unit Bathroom Toilet Standard Bathroom Equipment Hand-held shower head;Tub transfer bench Bathroom Accessibility Accessible via walker Home Equipment Walker 4 wheeled;Cane single point Prior Function Level of Burnett Independent with functional mobility;Independent with ADLs;Independe nt [...] Barriers to Discharge Cognitive Deficits Impacting Functional Burnett;Physical Deficit s Impacting Functional Burnett;Self-care Deficits Impacting Functional Burnett;Malik rological Impairment (see comment) Recommendation Comments pt. needs Max x 2 for transfers and mobility and should benefit fro m SNF to improve strength, endurance and functional mobility 05/15/16 1242 PT Last Visit PT Received On 05/15/16 Reason for Treatment Stroke Requires PT Follow Up Awaiting tx order Follow up PT Only? Yes (complexity) PT Eval/Reassessment Date 05/15/16 Assistance Required 2 person Baker Bread Needed No Precautions UE Precaution(s) LUE Precautions/WB [...] Barriers to Discharge Cognitive Deficits Impacting Functional Burnett;Physical Deficit s Impacting Functional Burnett;Self-care Deficits Impacting Functional Burnett;Malik rological Impairment (see comment) Recommendation Comments pt. needs Max x 2 for transfers and mobility and should benefit fro m SNF to improve strength, endurance and functional mobility Low - 06748 Moderate - 31350 High - 77108 History no personal factors &/or comorbidities 1-2 personal factors &/or comorbidities 3 o r more personal factors &/or comorbidities Examination 1-2 elements 3 elements 4 or more elements Clinical Presentation stable evolving unstable Clinical Decision Making Complexity: Low 45678 Moderate 68356 High 23227 Viviana Ferrer ARNP - 05/15/2016 9:41 AM PSTFormatting of this note might be different from stephanie brown original. Progress Notes by RUBEN Atkins at 05/15/16 8591 Author: RUBEN Atkins Service: Pastry Baker Author Type: Advanced Registered January rooney Practitioner Filed: 05/15/16 0395 Date of Service: 05/15/1605 Status: Signed Cable Repairer: RUBNE Atkins (Advanced Registered Nurse Practitioner) [facility] Service: Pastry Baker Progress Note Reagna Shepard 71 y.o. Hospital Day: LOS: 1 [...] disease, and TBI who initially presented to [facility] with left facial droop and left-sided weakness. He had an episode of uri nary incontinence and fall, EMS called and patient was brought to [facility] ED. Patient was last seen normal [...] of 14. Follow up on arrival to [facility] 9. Dr. Tova marin Keep BP < 180/105 mmHg, brain MRI 24 hours post-TPA with no e/o hemorrhage. Keep normoth ermic, normoglycemic. PT/OT/BUTTON BRADDER following. ? cardioembolic as cause for ischemic [...] On room air. GI/NUTRITION: Moderate protein-calorie malnutrition: [place] thick liquids per BUTTON BRADDER recs. GERD: on protonix at home. 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 2- [...] 05/14/161528 Date of Service: 05/14/161528 Status: Signed Cable Repairer: Pretty Dhillon RD, CD (Registered Dietitian) 05/14/161516 [...] Fluid / Beverage Intake Oral Fluids Amount [place] thick liquids ad bryant. Ok for 1 [...] subcutaneous fat. Digestive System (Mouth to Rectum) BUTTON BRADDER following for dysphagia. Skin Intact. Anthropometrics Weight [...] Estimated Energy Needs Total Energy Estimated Needs 8828-7015 kcal/day Method for Estimating Needs 25-30 kcal/kg admit wt (84.7 kg) Estimated Protein Needs Total Protein Estimated Needs 102-127 g protein/day Method for Estimating Needs 1.2-1.5 g protein/kg admit wt (84.7 kg) Recommendations Recommended energy needs Recommend adding diabetic diet restrictions to current BUTTON BRADDER diet or nigel to help optimize glycemic [...] Therapy Progress Note by Kate Hale MA CCC-BUTTON BRADDER at 05/14/16911 Author: Kate Hale MA CCC-BUTTON BRADDER Service: (none) Author Type: Speech and Language Patholo gist Filed: 05/14/16 0945 Date of Service: 05/14/16911 Status: Signed Cable Repairer: Kate Hale MA CCC-BUTTON BRADDER (Speech and Language Pathologist) 05/14/16911 BUTTON BRADDER Last Visit BUTTON BRADDER Received On 05/14/16 Requires BUTTON BRADDER Follow Up Yes Swallowing Assessment Eval Swallowing [...] 1/2 trials by cup, none by spoon) [place] Presentation Cup;Self Fed Oral WFL Pharyngeal Phase [...] Larynge al Elevation Recommendations Liquids Consistency Recommendations [place] thick;Ice chips for oral comfort Diet Consistency [...] diet textures, no awareness until cued by BUTTON BRADDER. At this time, recommen d puree diet [...] monitoring;Patient/Family education; Assessment for upgrade Dysphagia Goals Python Django Developer Goals Safe/efficient oral intake Pt will have safe/efficient oral intake Thin liquids;Mechanical soft diet;With min cues;Ne w/revised goal Short Term Goals Tolerate liquid consistency Pt will tolerate tolerate liquid consistency [place] thick liquids;with 1:1 supervision;New /revised goal onver elder Transaction, Provider Unknown - 05/14/2016 9:12 AM PST Therapy Progress Note by Zenon Schaeffer PT at 05/14/16 0912 Author: Zenon Schaeffer PT Service: Physical Medicine and Rehab Author Type: Physical Therapist Filed: 05/14/16 1556 Date of Service: 05/14/16911 Status: Signed Cable Repairer: Zenon Schaeffer PT (Physical Therapist) 05/14/16 09 [...] 05/14/16556 Date of Service: 05/14/16556 Status: Signed Cable Repairer: Iggy Lee RPH (Pharmacist) Pharmacy will renal [...] Fingerstick | performed at [facility];[address] | | LAB | | | | [address];[place] | | | | | | [address] | | | | + + + [...] Fingerstick | performed at [facility];[address] | | LAB | | | | [address];[place] | | | | | | [address] | | | | + + + [...] Fingerstick | performed at [facility];[address] | | LAB | | | | [address];[place] | | | | | | [address] | | | | + + + [...] Fingerstick | performed at [facility];[address] | | LAB | | | | [address];[place], [place] | | | | | | [address] | | | | + + + [...] Fingerstick | performed at [facility];[address] | | LAB | | | | [address];[place] | | | | | | [address] | | | | + + + [...] Fingerstick | performed at [facility];[address] | | LAB | | | | [address];[place], [place] | | | | | | [address] | | | | + + + [...] | | | | | [place] [address] | | | | + + + + + + | RED CELL | 4.96Comment: Testing | 4.20 - 5.70 | EXTERNAL | | | COUNT | performed at [facility], [address] | M/uL | LAB | | | | [address], | | | | | | [place] [address] | | | | + + + + + + | Hgb | 14.1Comment: Testing | 13.2 - 17.0 | EXTERNAL | | | | performed at [facility], [address] | g/dL | LAB | | | | [address], | | | | | | [place] [address] | | | | + + + + + + | Hematocrit, | 40.8Comment: Testing | 39.0 - 50.0 % | EXTERNAL | | | POC | performed at [facility], [address] | | LAB | | | | [address], | | | | | | [place] [address] | | | | + + + + + + | MCV | 82.3Comment: Testing | 80.0 - 100.0 fl | EXTERNAL | | | | performed at [facility], [address] | | LAB | | | | [address], | | | | | | [place] [address] | | | | + + + + + + | MCH | 28.5Comment: Testing | 27.0 - 34.0 pg | EXTERNAL | | | | performed at [facility], [address] | | LAB | | | | [address], | | | | | | [place] [address] | | | | + + + + + + | MCHC | 34.6Comment: Testing | 32.0 - 35.5 | EXTERNAL | | | | performed at [facility], [address] | g/dL | LAB | | | | [address], | | | | | | [place] [address] | | | | + + [...] | | | | | [place] [address] | | | | + + + + + + | MPV | 8.6Comment: Testing | fl | EXTERNAL | | | | performed at [facility], [address] | | LAB | | | | [address], | | | | | | [place] [address] | | | | + + + + + + | Differentia | AUTOMATEDComment: | | EXTERNAL | | | l Type | Testing performed at | | LAB | | | | [facility], [address] | | | | | | [place] | | | | | | [address] | | | | + + + + + + | % Segmented | 65.52Comment: Testing | % | EXTERNAL | | | | performed at [facility], [address] | | LAB | | | Neutrophils | [address], | | | | | | [place] [address] | | | | + + + + + + | % | 22.13Comment: Testing | % | EXTERNAL | | | Lymphocytes | performed at [facility], [address] | | LAB | | | | [address], | | | | | | [place] [address] | | | | + + + + + + | % Monocytes | 9.16Comment: Testing | % | EXTERNAL | | | | performed at [facility], [address] | | LAB | | | | [address], | | | | | | [place] [address] | | | | + + + + + + | % | 2.44Comment: Testing | % | EXTERNAL | | | Eosinophils | performed at [facility], [address] | | LAB | | | | [address], | | | | | | [place] [address] | | | | + + + + + + | % Basophils | 0.75Comment: Testing | % | EXTERNAL | | | | performed at [facility], [address] | | LAB | | | | [address], | | | | | | [place] [address] | | | | + + + + + + | Absolute | 6.91Comment: Testing | 1.90 - 7.40 | EXTERNAL | | | Segmented | performed at [facility], [address] | K/uL | LAB | | | Neutrophils | [address], | | | | | | [place] [address] | | | | + + + + + + | Absolute | 2.33Comment: Testing | 1.00 - 3.90 | EXTERNAL | | | Lymphocytes | performed at [facility], [address] | K/uL | LAB | | | | [address], | | | | | | [place] [address] | | | | + + + + + + | Absolute | 0.97 (H)Comment: Testing | 0.00 - 0.80 | EXTERNAL | | | Monocytes | performed at [facility], [address] | K/uL | LAB | | | | [address], | | | | | | [place] [address] | | | | + + + + + + | Absolute | 0.26Comment: Testing | 0.00 - 0.50 | EXTERNAL | | | Eosinophils | performed at [facility], [address] | K/uL | LAB | | | | [address], | | | | | | [place] [address] | | | | + + + + + + | Absolute | 0.08Comment: Testing | 0.00 - 0.10 | EXTERNAL | | | Basophils | performed at [facility], [address] | K/uL | LAB | | | | [address], | | | | | | [place] [address] | | | | + + + [...] [address], | | | | | | [place] [address] | | | | + + + [...] | | | | | [place] [address] | | | | + + + [...] [facility], [address] | mmol/L | LAB | | | | [address], | | | | | | [place] [address] | | | | + + + + + + | K | 4.1Comment: Testing | 3.5 - 4.9 | EXTERNAL | | | | performed at [facility], [address] | mmol/L | LAB | | | | [address], | | | | | | [place] [address] | | | | + + + + + + | Cl | 104Comment: Testing | 99 - 109 mmol/L | EXTERNAL | | | | performed at [facility], [address] | | LAB | | | | [address], | | | | | | [place] [address] | | | | + + + + + + | CO2 | 27Comment: Testing | 23 - 32 mmol/L | EXTERNAL | | | | performed at [facility], [address] | | LAB | | | | [address], | | | | | | [place] [address] | | | | + + + + + + | Anion Gap | 12Comment: Testing | 5 - 20 mmol/L | EXTERNAL | | | | performed at [facility], [address] | | LAB | | | | [address], | | | | | | [place] [address] | | | | + + + + + + | Glucose, | 143 (H)Comment: Testing | 65 - 99 mg/dL | EXTERNAL | | | Fasting | performed at [facility], [address] | | LAB | | | | [address], | | | | | | [place] [address] | | | | + + + + + + | BUN | 9Comment: Testing | 8 - 25 mg/dL | EXTERNAL | | | | performed at [facility], [address] | | LAB | | | | [address], | | | | | | [place] [address] | | | | + + + + + + | Creatinine | 0.6 (L)Comment: Testing | 0.70 - 1.30 | EXTERNAL | | | | performed at [facility], [address] | mg/dL | LAB | | | | [address], | | | | | | [place] [address] | | | | + + + + + + | BUN/Creatin | 15Comment: Testing | | EXTERNAL | | | ine Ratio | performed at [facility], [address] | | LAB | | | | [address], | | | | | | [place] [address] | | | | + + + + + + | Calcium | 8.6Comment: Testing | 8.5 - 10.5 | EXTERNAL | | | | performed at [facility], [address] | mg/dL | LAB | | | | [address], | | | | | | [place] [address] | | | | + + + [...] | | | | | [place] [address] | | | | + + + [...] Fingerstick | performed at [facility];[address] | | LAB | | | | [address];[place], [place] | | | | | | [address] | | | | + + + [...] Fingerstick | performed at [facility];[address] | | LAB | | | | [address];[place], [place] | | | | | | [address] | | | | + + + [...] Fingerstick | performed at [facility];[address] | | LAB | | | | [address];[place] | | | | | | [address] | | | | + + + [...] Fingerstick | performed at [facility];[address] | | LAB | | | | [address];[place] | | | | | | [address] | | | | + + + [...] | | | | [facility], [address] | | | | | | [place] | | | | | | [address] | | | | + + + + + + | RED CELL | 4.92Comment: Testing | 4.20 - 5.70 | EXTERNAL | | | COUNT | performed at [facility], [address] | M/uL | LAB | | | | [address], | | | | | | [place] [address] | | | | + + + + + + | Hgb | 13.9Comment: Testing | 13.2 - 17.0 | EXTERNAL | | | | performed at [facility], [address] | g/dL | LAB | | | | [address], | | | | | | [place] [address] | | | | + + + + + + | Hematocrit, | 40.8Comment: Testing | 39.0 - 50.0 % | EXTERNAL | | | POC | performed at [facility], [address] | | LAB | | | | [address], | | | | | | [place] [address] | | | | + + + + + + | MCV | 83.0Comment: Testing | 80.0 - 100.0 fl | EXTERNAL | | | | performed at [facility], [address] | | LAB | | | | [address], | | | | | | [place] [address] | | | | + + + [...] | | | | | [place] [address] | | | | + + + + + + | RDW-CV | 42.4Comment: Testing | 37 - 53 fl | EXTERNAL | | | | performed at [facility], [address] | | LAB | | | | [address], | | | | | | [place] [address] | | | | + + + + + + | Platelet | 215Comment: Testing | 150 - 400 K/uL | EXTERNAL | | | Count | performed at [facility], [address] | | LAB | | | Plasma | [address], | | | | | | [place] [address] | | | | + + + + + + | MPV | 8.5Comment: Testing | fl | EXTERNAL | | | | performed at [facility], [address] | | LAB | | | | [address], | | | | | | [place] [address] | | | | + + + + + + | Differentia | AUTOMATEDComment: | | EXTERNAL | | | l Type | Testing performed at | | LAB | | | | [facility], [address] | | | | | | [place] | | | | | | [address] | | | | + + + + + + | % Segmented | 70.19Comment: Testing | % | EXTERNAL | | | | performed at [facility], [address] | | LAB | | | Neutrophils | [address], | | | | | | [place] [address] | | | | + + + + + + | % | 17.93Comment: Testing | % | EXTERNAL | | | Lymphocytes | performed at [facility], [address] | | LAB | | | | [address], | | | | | | [place] [address] | | | | + + + + + + | % Monocytes | 8.97Comment: Testing | % | EXTERNAL | | | | performed at [facility], [address] | | LAB | | | | [address], | | | | | | [place] [address] | | | | + + + + + + | % | 2.27Comment: Testing | % | EXTERNAL | | | Eosinophils | performed at [facility], [address] | | LAB | | | | [address], | | | | | | [place] [address] | | | | + + + + + + | % Basophils | 0.64Comment: Testing | % | EXTERNAL | | | | performed at [facility], [address] | | LAB | | | | [address], | | | | | | [place] [address] | | | | + + + + + + | Absolute | 7.86 (H)Comment: Testing | 1.90 - 7.40 | EXTERNAL | | | Segmented | performed at [facility], [address] | K/uL | LAB | | | Neutrophils | [address], | | | | | | [place] [address] | | | | + + + + + + | Absolute | 2.01Comment: Testing | 1.00 - 3.90 | EXTERNAL | | | Lymphocytes | performed at [facility], [address] | K/uL | LAB | | | | [address], | | | | | | [place] [address] | | | | + + + + + + | Absolute | 1.01 (H)Comment: Testing | 0.00 - 0.80 | EXTERNAL | | | Monocytes | performed at [facility], [address] | K/uL | LAB | | | | [address], | | | | | | [place] [address] | | | | + + + + + + | Absolute | 0.25Comment: Testing | 0.00 - 0.50 | EXTERNAL | | | Eosinophils | performed at [facility], [address] | K/uL | LAB | | | | [address], | | | | | | [place] [address] | | | | + + + + + + | Absolute | 0.07Comment: Testing | 0.00 - 0.10 | EXTERNAL | | | Basophils | performed at [facility], [address] | K/uL | LAB | | | | [address], | | | | | | [place] [address] | | | | + + + [...] [address], | | | | | | [place] [address] | | | | + + + [...] | | | | | [place] [address] | | | | + + + [...] | | | | | [place] [address] | | | | + + + + + + | K | 3.9Comment: Testing | 3.5 - 4.9 | EXTERNAL | | | | performed at [facility], [address] | mmol/L | LAB | | | | [address], | | | | | | [place] [address] | | | | + + + + + + | Cl | 103Comment: Testing | 99 - 109 mmol/L | EXTERNAL | | | | performed at [facility], [address] | | LAB | | | | [address], | | | | | | [place] [address] | | | | + + + [...] | | | | | [place] [address] | | | | + + + + + + | Glucose, | 132 (H)Comment: Testing | 65 - 99 mg/dL | EXTERNAL | | | Fasting | performed at [facility], [address] | | LAB | | | | [address], | | | | | | [place] [address] | | | | + + + + + + | BUN | 9Comment: Testing | 8 - 25 mg/dL | EXTERNAL | | | | performed at [facility], [address] | | LAB | | | | [address], | | | | | | [place] [address] | | | | + + + + + + | Creatinine | 0.5 (L)Comment: Testing | 0.70 - 1.30 | EXTERNAL | | | | performed at [facility], [address] | mg/dL | LAB | | | | [address], | | | | | | [place] [address] | | | | + + + + + + | BUN/Creatin | 18Comment: Testing | | EXTERNAL | | | ine Ratio | performed at [facility], [address] | | LAB | | | | [address], | | | | | | [place] [address] | | | | + + + + + + | Calcium | 8.4 (L)Comment: Testing | 8.5 - 10.5 | EXTERNAL | | | | performed at [facility], [address] | mg/dL | LAB | | | | [address], | | | | | | [place] [address] | | | | + + + + + + | Protein, | 6.0 (L)Comment: Testing | 6.3 - 8.2 g/dL | EXTERNAL | | | Total | performed at [facility], [address] | | LAB | | | | [address], | | | | | | [place] [address] | | | | + + + + + + | Albumin | 3.0 (L)Comment: Testing | 3.3 - 4.8 g/dL | EXTERNAL | | | | performed at [facility], [address] | | LAB | | | | [address], | | | | | | [place] [address] | | | | + + + + + + | Globulin | 3.0Comment: Testing | 1.3 - 4.9 g/dL | EXTERNAL | | | | performed at [facility], [address] | | LAB | | | | [address], | | | | | | [place] [address] | | | | + + + + + + | A/G Ratio | 1.0Comment: Testing | 1.0 - 2.4 | EXTERNAL | | | | performed at [facility], [address] | | LAB | | | | [address], | | | | | | [place] [address] | | | | + + + + + + | Bilirubin | 1.4Comment: Testing | 0.1 - 1.5 mg/dL | EXTERNAL | | | Total | performed at [facility], [address] | | LAB | | | | [address], | | | | | | [place] [address] | | | | + + + + + + | ALP, | 77Comment: Testing | 35 - 115 U/L | EXTERNAL | | | External | performed at [facility], [address] | | LAB | | | | [address], | | | | | | [place] [address] | | | | + + + + + + | AST | 14Comment: Testing | 10 - 45 U/L | EXTERNAL | | | | performed at [facility], [address] | | LAB | | | | [address], | | | | | | [place] [address] | | | | + + + + + + | ALT | 13Comment: Testing | 10 - 65 U/L | EXTERNAL | | | | performed at [facility], [address] | | LAB | | | | [address], | | | | | | [place] [address] | | | | + + + [...] | | | | | [place] [address] | | | | + + + [...] Fingerstick | performed at [facility];[address] | | LAB | | | | [address];[place], [place] | | | | | | [address] [...] Fingerstick | performed at [facility];[address] | | LAB | | | | [address];[place] | | | | | | [address] | | | | + + + [...] | | | to suboptimal images. MEASUREMENTS Stock Supervisor: | | | KVW Authenticated by: [...] due to suboptimal images. MEASUREMENTS | | Stock Supervisor: Valentinticated by: Aleksandar Pacheco Date/Time: 05-16-2016 20:59:22 [...] | |MEASUREMENTS | | | | | |Stock Supervisor: KVW | |Authenticated by: Aleksandar Dotson | [...] Fingerstick | performed at [facility];[address] | | LAB | | | | [address];[place], [place] | | | | | | [address] | | | | + + + [...] was also examined | | | with [employer] 3D software for evaluation of the cerebral [...] Conversion - 11/02/2018 6:55 AM PDT REAGAN AGLTAIIS14[id number] years MaleCTA | | HEAD NECK W [...] The data set was also examined with [employer] 3D software for evaluation of the cerebral [...] [place] | | | | | | [address] | | | | + + + + + + | RED CELL | 4.77Comment: Testing | 4.20 - 5.70 | EXTERNAL | | | COUNT | performed at [facility], [address] | M/uL | LAB | | | | [address], | | | | | | [place] [address] | | | | + + + + + + | Hgb | 13.4Comment: Testing | 13.2 - 17.0 | EXTERNAL | | | | performed at [facility], [address] | g/dL | LAB | | | | [address], | | | | | | [place] [address] | | | | + + + + + + | Hematocrit, | 39.1Comment: Testing | 39.0 - 50.0 % | EXTERNAL | | | POC | performed at [facility], [address] | | LAB | | | | [address], | | | | | | [place] [address] | | | | + + + + + + | MCV | 82.0Comment: Testing | 80.0 - 100.0 fl | EXTERNAL | | | | performed at [facility], [address] | | LAB | | | | [address], | | | | | | [place] [address] | | | | + + + + + + | MCH | 28.0Comment: Testing | 27.0 - 34.0 pg | EXTERNAL | | | | performed at [facility], [address] | | LAB | | | | [address], | | | | | | [place] [address] | | | | + + + + + + | MCHC | 34.1Comment: Testing | 32.0 - 35.5 | EXTERNAL | | | | performed at [facility], [address] | g/dL | LAB | | | | [address], | | | | | | [place] [address] | | | | + + + + + + | RDW-CV | 42.9Comment: Testing | 37 - 53 fl | EXTERNAL | | | | performed at [facility], [address] | | LAB | | | | [address], | | | | | | [place] [address] | | | | + + + + + + | Platelet | 238Comment: Testing | 150 - 400 K/uL | EXTERNAL | | | Count | performed at [facility], [address] | | LAB | | | Plasma | [address], | | | | | | [place] [address] | | | | + + + + + + | MPV | 8.8Comment: Testing | fl | EXTERNAL | | | | performed at [facility], [address] | | LAB | | | | [address], | | | | | | [place] [address] | | | | + + + + + + | Differentia | AUTOMATEDComment: | | EXTERNAL | | | l Type | Testing performed at | | LAB | | | | [facility], [address], [place], [place] | | | | | | [address] | | | | + + + + + + | % Segmented | 68.92Comment: Testing | % | EXTERNAL | | | | performed at [facility], [address] | | LAB | | | Neutrophils | [address], | | | | | | [place] [address] | | | | + + + + + + | % | 18.94Comment: Testing | % | EXTERNAL | | | Lymphocytes | performed at [facility], [address] | | LAB | | | | [address], | | | | | | [place] [address] | | | | + + + + + + | % Monocytes | 10.32Comment: Testing | % | EXTERNAL | | | | performed at [facility], [address] | | LAB | | | | [address], | | | | | | [place] [address] | | | | + + + + + + | % | 1.25Comment: Testing | % | EXTERNAL | | | Eosinophils | performed at [facility], [address] | | LAB | | | | [address], | | | | | | [place] [address] | | | | + + + + + + | % Basophils | 0.57Comment: Testing | % | EXTERNAL | | | | performed at [facility], [address] | | LAB | | | | [address], | | | | | | [place] [address] | | | | + + + + + + | Absolute | 8.86 (H)Comment: Testing | 1.90 - 7.40 | EXTERNAL | | | Segmented | performed at [facility], [address] | K/uL | LAB | | | Neutrophils | [address], | | | | | | [place] [address] | | | | + + + + + + | Absolute | 2.44Comment: Testing | 1.00 - 3.90 | EXTERNAL | | | Lymphocytes | performed at [facility], [address] | K/uL | LAB | | | | [address], | | | | | | [place] [address] | | | | + + + + + + | Absolute | 1.33 (H)Comment: Testing | 0.00 - 0.80 | EXTERNAL | | | Monocytes | performed at [facility], [address] | LAB | | | | [address], | | | | | | [place] [address] | | | | + + + + + + | Absolute | 0.16Comment: Testing | 0.00 - 0.50 | EXTERNAL | | | Eosinophils | performed at [facility], [address] | LAB | | | | [address], | | | | | | [place] [address] | | | | + + + + + + | Absolute | 0.07Comment: Testing | 0.00 - 0.10 | EXTERNAL | | | Basophils | performed at [facility], [address] | [address] | LAB | | | | [address], | | | | | | [place] [address] | | | | + + + [...] Fingerstick | performed at [facility];[address] | | LAB | | | | [address];[place] | | | | | | [address] | | | | + + + [...] [address], | | | | | | [place] [address] | | | | + + + [...] | | | | | [place] [address] | | | | + + + [...] | | | | | [place] [address] | | | | + + + + + + | K | 4.2Comment: SPECIMEN | 3.5 - 4.9 | EXTERNAL | | | | SLIGHTLY | mmol/L | LAB | | | | HEMOLYZEDTesting | | | | | | performed at [facility], [address] | | | | | | [address], | | | | | | [place] [address] | | | | + + + + + + | Cl | 104Comment: Testing | 99 - 109 mmol/L | EXTERNAL | | | | performed at [facility], [address] | | LAB | | | | [address], | | | | | | [place] [address] | | | | + + + + + + | CO2 | 25Comment: Testing | 23 - 32 mmol/L | EXTERNAL | | | | performed at [facility], [address] | | LAB | | | | [address], | | | | | | [place] [address] | | | | + + + + + + | Anion Gap | 14Comment: Testing | 5 - 20 mmol/L | EXTERNAL | | | | performed at [facility], [address] | | LAB | | | | [address], | | | | | | [place] [address] | | | | + + + [...] | | | | | [place] [address] | | | | + + + + + + | BUN | 9Comment: Testing | 8 - 25 mg/dL | EXTERNAL | | | | performed at [facility], [address] | | LAB | | | | [address], | | | | | | [place] [address] | | | | + + + + + + | Creatinine | 0.7Comment: SPECIMEN | 0.70 - 1.30 | EXTERNAL | | | | SLIGHTLY | mg/dL | LAB | | | | HEMOLYZEDTesting | | | | | | performed at [facility], [address] | | | | | | [address], | | | | | | [place] [address] | | | | + + + + + + | BUN/Creatin | 13Comment: Testing | | EXTERNAL | | | ine Ratio | performed at [facility], [address] | | LAB | | | | [address], | | | | | | [place] [address] | | | | + + + + + + | Calcium | 8.5Comment: Testing | 8.5 - 10.5 | EXTERNAL | | | | performed at [facility], [address] | mg/dL | LAB | | | | [address], | | | | | | [place] [address] | | | | + + + + + + | Protein, | 5.8 (L)Comment: Testing | 6.3 - 8.2 g/dL | EXTERNAL | | | Total | performed at [facility], [address] | | LAB | | | | [address], | | | | | | [place] [address] | | | | + + + + + + | Albumin | 2.8 (L)Comment: Testing | 3.3 - 4.8 g/dL | EXTERNAL | | | | performed at [facility], [address] | | LAB | | | | [address], | | | | | | [place] [address] | | | | + + + + + + | Globulin | 3.0Comment: Testing | 1.3 - 4.9 g/dL | EXTERNAL | | | | performed at [facility], [address] | | LAB | | | [address], | | | | | | [place] [address] | | | | + + + + + + | A/G Ratio | 0.9 (L)Comment: Testing | 1.0 - 2.4 | EXTERNAL | | | | performed at [facility], [address] | | LAB | | | | [address], | | | | | | [place] [address] | | | | + + + [...] Blvd, | | | | | | [place] [address] | | | | + + + + + + | ALP, | 77Comment: Testing | 35 - 115 U/L | EXTERNAL | | | External | performed at [facility], [address] | | LAB | | | | [address], | | | | | | [place] [address] | | | | + + + + + + | AST | 18Comment: SPECIMEN | 10 - 45 U/L | EXTERNAL | | | | SLIGHTLY | | LAB | | | | HEMOLYZEDTesting | | | | | | performed at [facility], [address] | | | | | | [address], | | | | | | [place] [address] | | | | + + + + + + | ALT | 15Comment: SPECIMEN | 10 - 65 U/L | EXTERNAL | | | | SLIGHTLY | | LAB | | | | HEMOLYZEDTesting | | | | | | performed at [facility], [address] | | | | | | [address], | | | | | | [place] [address] | | | | + + + [...] | | | | | [place] [address] | | | | + + + [...] Fingerstick | performed at [facility];[address] | | LAB | | | | [address];[place] | | | | | | [address] | | | | + + + [...] Fingerstick | performed at [facility];[address] | | LAB | | | | [address];[place], [place] | | | | | | [address] | | | | + + + [...] | | | | | [place] [address] | | | | + + [...] Fingerstick | performed at [facility];[address] | | LAB | | | | [address];[place] | | | | | | [address] | | | | + + + [...] brain without | | | gadolinium. 3-D etxs-si-wzaosn MR angiography was also performed to | [...] the brain without gadolinium. 3-D | | [id number] MR angiography was also performed to the [...] Fingerstick | performed at [facility];[address] | | LAB | | | | [address];[place], [place] | | | | | | [address] | | | | + + + [...] Fingerstick | performed at [facility];[address] | | LAB | | | | [address];[place] | | | | | | [address] | | | | + + + [...] Fingerstick | performed at [facility];[address] | | LAB | | | | [address];[place] | | | | | | [address] | | | | + + [...] Fingerstick | performed at [facility];[address] | | LAB | | | | [address];[place] | | | | | | [address] | | | | + + + [...] K/uL | LAB | | | | [facility], [address] [facility] | | | | | | [place] | | | | | | [address] | | | | + + + + + + | RED CELL | 5.01Comment: Testing | 4.20 - 5.70 | EXTERNAL | | | COUNT | performed at [facility], [address] | M/uL | LAB | | | | [address], | | | | | | [place] [address] | | | | + + + + + + | Hgb | 14.0Comment: Testing | 13.2 - 17.0 | EXTERNAL | | | | performed at [facility], [address] | g/dL | LAB | | | | [address], | | | | | | [place] [address] | | | | + + + + + + | Hematocrit, | 40.8Comment: Testing | 39.0 - 50.0 % | EXTERNAL | | | POC | performed at [facility], [address] | | LAB | | | | [address], | | | | | | [place] [address] | | | | + + + + + + | MCV | 81.5Comment: Testing | 80.0 - 100.0 fl | EXTERNAL | | | | performed at [facility], [address] | | LAB | | | | [address], | | | | | | [place] [address] | | | | + + + + + + | MCH | 27.9Comment: Testing | 27.0 - 34.0 pg | EXTERNAL | | | | performed at [facility], [address] | | LAB | | | | [address], | | | | | | [place] [address] | | | | + + + + + + | MCHC | 34.2Comment: Testing | 32.0 - 35.5 | EXTERNAL | | | | performed at [facility], [address] | g/dL | LAB | | | | [address], | | | | | | [place] [address] | | | | + + + + + + | RDW-CV | 42.0Comment: Testing | 37 - 53 fl | EXTERNAL | | | | performed at [facility], [address] | | LAB | | | | [address], | | | | | | [place] [address] | | | | + + + + + + | Platelet | 257Comment: Testing | 150 - 400 K/uL | EXTERNAL | | | Count | performed at [facility], [address] | | LAB | | | Plasma | [address], | | | | | | [place] [address] | | | | + + + + + + | MPV | 8.4Comment: Testing | fl | EXTERNAL | | | | performed at [facility], [address] | | LAB | | | | [address], | | | | | | [place] [address] | | | | + + + + + + | Differentia | AUTOMATEDComment: | | EXTERNAL | | | l Type | Testing performed at | | LAB | | | | [facility], [address] | | | | | | [place] | | | | | | [address] | | | | + + + + + + | % Segmented | 72.88Comment: Testing | % | EXTERNAL | | | | performed at [facility], [address] | | LAB | | | Neutrophils | [address], | | | | | | [place] [address] | | | | + + + + + + | % | 17.64Comment: Testing | % | EXTERNAL | | | Lymphocytes | performed at [facility], [address] | | LAB | | | | [address], | | | | | | [place] [address] | | | | + + + + + + | % Monocytes | 8.16Comment: Testing | % | EXTERNAL | | | | performed at [facility], [address] | | LAB | | | | [address], | | | | | | [place] [address] | | | | + + + + + + | % | 1.06Comment: Testing | % | EXTERNAL | | | Eosinophils | performed at [facility], [address] | | LAB | | | | [address], | | | | | | [place] [address] | | | | + + + + + + | % Basophils | 0.26Comment: Testing | % | EXTERNAL | | | | performed at [facility], [address] | | LAB | | | | [address], | | | | | | [place] [address] | | | | + + + + + + | Absolute | 10.84 (H)Comment: | 1.90 - 7.40 | EXTERNAL | | | Segmented | Testing performed at | K/uL | LAB | | | Neutrophils | [facility], [address] | | | | | | [place] | | | | | | [address] | | | | + + + + + + | Absolute | 2.62Comment: Testing | 1.00 - 3.90 | EXTERNAL | | | Lymphocytes | performed at [facility], [address] | K/uL | LAB | | | | [address], | | | | | | [place] [address] | | | | + + + + + + | Absolute | 1.21 (H)Comment: Testing | 0.00 - 0.80 | EXTERNAL | | | Monocytes | performed at [facility], [address] | K/uL | LAB | | | | [address], | | | | | | [place] [address] | | | | + + + + + + | Absolute | 0.16Comment: Testing | 0.00 - 0.50 | EXTERNAL | | | Eosinophils | performed at [facility], [address] | K/uL | LAB | | | | [address], | | | | | | [place] [address] | | | | + + + + + + | Absolute | 0.04Comment: Testing | 0.00 - 0.10 | EXTERNAL | | | Basophils | performed at [facility], [address] | K/uL | LAB | | | | [address], | | | | | | [place] [address] | | | | + + + [...] | | | | | [place] [address] | | | | + + + [...] | EXTERNAL | | | A1c | [facility] | | LAB | | | [...] [facility], [address] | | | | | [address] [facility], | | | | | | [place] [address] | | | | + + + [...] | | | | | [place] [address] | | | | + + + [...] | | | | | [place] [address] | | | | + + + + + + | Triglycerid | 152 (H)Comment: Testing | mg/dL | EXTERNAL | | | es | performed at [facility], [address] | | LAB | | | | [address], | | | | | | [place] [address] | | | | + + + + + + | HDL | 31 (L)Comment: Testing | mg/dL | EXTERNAL | | | | performed at [facility], [address] | | LAB | | | | [address], | | | | | | [place] [address] | | | | + + + + + + | LDL | 47Comment: Testing | mg/dL | EXTERNAL | | | Cholesterol | performed at [facility], [address] | | LAB | | | , | [address], | | | | | Calculated, | [place] [address] | | | | | External | [...] | | | | | [place] [address] | | | | + + + + + + | K | 3.3 (L)Comment: Testing | 3.5 - 4.9 | EXTERNAL | | | | performed at [facility], [address] | mmol/L | LAB | | | | [address], | | | | | | [place] [address] | | | | + + + + + + | Cl | 104Comment: Testing | 99 - 109 mmol/L | EXTERNAL | | | | performed at [facility], [address] | | LAB | | | | [address], | | | | | | [place] [address] | | | | + + + + + + | CO2 | 25Comment: Testing | 23 - 32 mmol/L | EXTERNAL | | | | performed at [facility], [address] | | LAB | | | | [address], | | | | | | [place] [address] | | | | + + + + + + | Anion Gap | 12Comment: Testing | 5 - 20 mmol/L | EXTERNAL | | | | performed at [facility], [address] | | LAB | | | | [address], | | | | | | [place] [address] | | | | + + + + + + | Glucose, | 125 (H)Comment: Testing | 65 - 99 mg/dL | EXTERNAL | | | Fasting | performed at [facility], [address] | | LAB | | | | [address], | | | | | | [place] [address] | | | | + + + + + + | BUN | 11Comment: Testing | 8 - 25 mg/dL | EXTERNAL | | | | performed at [facility], [address] | | LAB | | | | [address], | | | | | | [place] [address] | | | | + + + + + + | Creatinine | 0.7Comment: Testing | 0.70 - 1.30 | EXTERNAL | | | | performed at [facility], [address] | mg/dL | LAB | | | | [address], | | | | | | [place] [address] | | | | + + + + + + | BUN/Creatin | 16Comment: Testing | | EXTERNAL | | | ine Ratio | performed at [facility], [address] | | LAB | | | | [address], | | | | | | [place] [address] | | | | + + + + + + | Calcium | 8.3 (L)Comment: Testing | 8.5 - 10.5 | EXTERNAL | | | | performed at [facility], [address] | mg/dL | LAB | | | | [address], | | | | | | [place] [address] | | | | + + + [...] [address], | | | | | | [place] [address] | | | | + + + [...] Fingerstick | performed at [facility];[address] | | LAB | | | | [address];[place] | | | | | | [address] | | | | + + + [...] Fingerstick | performed at [facility];[address] | | LAB | | | | [address];[place] | | | | | | [address] | | | | + + + [...] Fingerstick | performed at [facility];[address] | | LAB | | | | [address];[place] | | | | | | [address] | | | | + + + [...] Fingerstick | performed at [facility];[address] | | LAB | | | | [address];[place] | | | | | | [address] | | | | + + + [...] Fingerstick | performed at [facility];[address] | | LAB | | | | [address];[place], [place] | | | | | | [address] | | | | + + + [...] Fingerstick | performed at [facility];[address] | | LAB | | | | [address];[place], [place] | | | | | | [address] | | | | + + + [...] Fingerstick | performed at [facility];[address] | | LAB | | | [address];[place], [place] | | | | | | [address] | | | | + + [...] Fingerstick | performed at [facility];8 | | LAB | | | | [address];[place] | | | | | | [address] | | | | + + + [...] Fingerstick | performed at [facility];[address] | | LAB | | | | [address];[place] | | | | | | [address] | | | | + + + [...] Fingerstick | performed at [facility];[address] | | LAB | | | | [address];[place] | | | | | | [address] | | | | + + + [...] Fingerstick | performed at [facility];[address] | | LAB | | | | [address];[place] | | | | | | [address] | | | | + + + [...] Fingerstick | performed at [facility];[address] | | LAB | | | | [address];[place] | | | | | | [address] [...] Fingerstick | performed at [facility];[address] | | LAB | | | | [address];[place], [place] | | | | | | [address] | | | | + + + [...] Fingerstick | performed at [facility];[address] | | LAB | | | | [address];[place] | | | | | | [address] | | | | + + + [...] Fingerstick | performed at [facility];8 | | LAB | | | | [address];[place] | | | | | | [address] | | | | + + + [...] Fingerstick | performed at [facility];[address] | | LAB | | | | [address];[place], [place] | | | | | | [address] | | | | + + + [...] | | Jefe: 0.48 m/s TV Dec [place]: 3.62 m/s2 TV Dec Time: 136.62 | | | ms TV E Jefe: 0.49 m/s TV E/A Ratio: 1.02 Stock Supervisor: TRINY | | | Authenticated by: [...] | Index (A-L): 25.78 ml/m2LAAs A2C: 20.06 [id number] A-L A2C: 56.80 mlLAESV MOD A2C: | | 53.98 mlLALs A2C: 6.01 cmLAAs A4C: 18.67 [id number] A-L A4C: 45.70 mlLAESV MOD A4C: | | 43.69 mlLALs A4C: 6.47 cmHR: 94.31 BPMAV maxP.45 mmHgAV meanP.54 | | mmHgAV Vmax: 1.61 m/Abilio Vmean: 1.22 m/Abilio VTI: 27.30 cmAVA Vmax: 2.68 cm2AVA | | (VTI): 2.69 [id number] Vmax: 0.00 cm2/m2AVAI (VTI): 0.00 cm2/m2LVCI Dopp: 3.08 | | [id number] Dopp: 6.31 l/minHR: 85.80 BPMLVOT maxP.48 mmHgLVOT meanP.11 | | mmHgLVSI Dopp: 35.92 ml/m2LVSV Dopp: 73.65 mlLVOT Vmax: 1.36 m/sLVOT Vmean: 0.96 | | m/sLVOT VTI: 23.22 cmMCO: 392.13 msMV A Jefe: 1.50 m/sMV DecT: 213.25 msMV E | | Jefe: 0.88 m/sMV E/A Ratio: 0.59MV PHT: 74.39 msMVA By PHT: 2.95 [id number] e': | | 0.05 m/sSeptal E/e': 14.80RAP: 8 mmHgTV A Jefe: 0.48 m/sTV Dec [place]: 3.62 m/s2TV | | Dec Time: 136.62 msTV E Jefe: 0.49 m/sTV E/A Ratio: 1.02 Stock Supervisor: | | GDAuthenticated by: Aleksandar HernandezraReport Date/Time: [...] A Jefe: 0.48 m/s | |TV Dec [place]: 3.62 m/s2 | |TV Dec Time: 136.62 ms | |TV E Jefe: 0.49 m/s | |TV E/A Ratio: 1.02 | | | |Stock Supervisor: TRINY | |Authenticated by: Aleksandar Dotson [...] EXTERNAL LAB | | Testing performed at [facility];[address] [place] [address];[place] [address] MRSA PCR | | | NEGATIVE Testing performed at | | | [address];[place] [address] | | + + + + +---------+ [...] Fingerstick | performed at [facility];[address] | | LAB | | | | [address];[place] | | | | | | [address] | | | | + + + [...] + + | Historically converted procedure from [facility] environment | EXTERNAL LAB | + [...] | Ischemic stroke diagnosed during current admission ([facility]) | + + | Type 2 diabetes mellitus with diabetic neuropathy, with long-term current use of | | insulin ([facility]) | + + | Moderate protein-calorie malnutrition ([facility]) Malnutrition of moderate degree | + + | Gastroesophageal reflux disease without esophagitis Esophageal reflux | + + | Hypokalemia Hypopotassemia | + + | Essential hypertension, benign | + + documented in this encounter
--- OUTSIDE RECORDS SUMMARY | ~2019-03-28 | XMS | Encounter Summary ---
Demographics + + + | Address | [address] | | | [place] [address] | + + + | Home Phone [...] | Organization | [facility] | | | and [place] | + + + | Address | Unknown | + + + | Phone | Unavailable | + + + Support + + + + + | Name | Relationship | Address | Phone | + + + + + | Jessica Shepard | ECON | [address] | | | | | [place] | | | | | [address] | | + + + + + | Bel Solis | ECON | Unknown | | + + + + + | [place] | ECON | [place] | | | | | [address] | | + + + + + | [place] | ECON | Unknown | | + + + + + Care Team Providers + +------+ + | Care Straightedge Worker Name | Role | Phone | + +------+ + | Dian Lr NP | PCP | | + +------+ + Encounter Details +--------+ + + + + | Date | Type | Department | Care Team | Description | +--------+ + + + + | 07/21/ | Orders Only | [facility] | Conversion | | | 2019 | | INFECTIOUS DISEASE | Transaction, | | | | | [address] | Provider Unknown | | | | | [place] | [phone] | | | | | [address] | | | | | | [phone] | | | +--------+ + + + [...]
--- OUTSIDE RECORDS SUMMARY | ~2019-03-28 | XMS | Encounter Summary ---
Demographics + + + | Address | [address] | | | [place] [address] | + + + | Home Phone [...] | Organization | [facility] | | | and [place] | + + + | Address | Unknown | + + + | Phone | Unavailable | + + + Support + + + + + | Name | Relationship | Address | Phone | + + + + + | Jessica Shepard | ECON | [address] | | | | | [place] | | | | | [address] | | + + + + + | Bel Solis | ECON | Unknown | | + + + + + | José [place] | ECON | [place] | | | | | [address] | | + + + + + | Jessica Shepard | ECON | Unknown | | + + + + + Care Team Providers + +------+ + | Care Apartment Leasing Manager Name | Role | Phone | + +------+ + | Dian Lr NP | PCP | | + +------+ + Encounter Details +--------+ + + + + | Date | Type | Department | Care Team | Description | +--------+ + + + + | 11/26/ | Hospital | [facility] | Toby Ortiz | | | 2018 | Encounter | MED CTR XRAY [address] | [address] | | | | | [address] | [facility] | | | | | [place] [address] | [place] [address] | | | | | [phone] | [phone] | | | | | | | [...]
--- OUTSIDE RECORDS SUMMARY | ~2019-03-28 | XMS | Clinical Summary ---
Demographics + + + | Address | [address] | | | [place] [address] | + + + | Home Phone [...] + | Organization | [facility] | | | and [place] | + + + | Address | Unknown | + + + | Phone | Unavailable | + + + Support + + + + + | Name | Relationship | Address | Phone | + + + + + | Jessica Shepard | ECON | [address] | | | | | [place] | | | | | [address] | | + + + + + | Bel Solis | ECON | Unknown | | + + + + + | José [place] | ECON | [place] | | | | | [address] | | + + + + + | Jessica Shepard | ECON | Unknown | | + + + + + Care Team Providers + +------+ + | Care Personal Secretary Name | Role | Phone | + +------+ + | Dian Lr DRYING TUNNEL OPERATOR | PCP | | + +------+ [...] + + + | 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 | + + + + + [...] +--------+ +---------+--------+ | MEDICARE | MEDICA | [id number] | | [phone] | | Medica | | | RE | | 012-Pr | 5 | | re | | | PART A | | esent | | | | | | AND B | | | | | | + +--------+ +--------+ +---------+--------+ | VETERANS ADMIN | VETERA | [id number] | | | | Indemn | | | NS | | 018-Pr | | | ity | | | ADMIN | | esent | | | | | | [place] | | | | | | | | [place] | | | | | | + +--------+ +--------+ +---------+--------+ | MEDICARE | MEDICA | [id number] | | [phone] | | Medica | [...] Person | Self [birth year] | [address] | | | al/Fam | | 1945 | [phone] | [place] | | | carlos | | | 2 (Home) | [address] | + +--------+ +--------+ + + | Reagan Shepard | Person | Self | [birth year] | [address] | | | al/Fam | | 1945 | [phone] | [place], [place] | | | [place] | | | 2 (Home) | [address] | + +--------+ +--------+ + + Advance Directives + + + + + | Type | Date Recorded | Patient | Explanation | | | | Cook Syrup Maker | | + + + + + | Power of | | | | | Ware Dresser | | | | + + + [...]
[~2019-03-28 09:43] MED LIST changes: +LANTUS SOL100 UNIT/1 SUB-Q; +LASIX20 MG PO; +OMEPRAZOLE20 MG PO; -OMEPRAZOLE40 MG PO; +POTASSIUM CHLO10 MEQ PO
--- OUTSIDE RECORDS SUMMARY | 2019-03-28 09:48 | XMS ---
PreManage Notification: SAROJ AMEZQUITA Security Director Of Admissions Events No recent Security Events currently on file CRITERIA MET - [facility] - 2 Visits in 30 Days CARE PROVIDERS Name [facility] Current PHONE: [phone] [facility] 01/08/2019-Current PHONE: [phone] Leonard Lopez DO [facility] Current PHONE: Unknown Name Unknown Clinic/Center: [facility] 03/27/2019-Current PHONE: [phone] Leonard Lopez DO Treatment Current PHONE: Unknown Jalen has no Care Guidelines for this patient. Care History Medical/Surgical 03/27/2019 [facility] - PATIENT HAS PCP-DR ROSLYN JONES AT [facility] HIS PCP- - LAST VISIT WITH DR JONES WAS ON 02/05/19 AND PT WAS SCHEDULED FOR PATIENT- PATIENT WAS SUPPOSED TO BE SEEN ON 03/22/2019 FOR PT - PROVIDER DOES NOT HAVE RECORDS. - PATIENT RECENTLY HAD A GEC DONE BY THE [facility] PROVIDER IN OCTOBER 2018. - [facility] WILL HAVE ALL RECENT ED RECORDS SENT TO PCP AT THE [facility]-PATIENT DOES NOT HAVE DR [facility] PCP. E.Ian VISIT COUNT (12 MO.) [address] [facility]. TOTAL 5 NOTE: Visits indicate total known visits. 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 - 1 Type 2 diabetes mellitus with foot ulcer - intermediate (current) use of insulin - Personal history of nicotine dependence - Non-prs chronic ulcer oth prt right foot w unsp severity - Encounter for change or removal of surgical wound dressing - 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
--- NOTE | 2019-03-28 15:20 | NUR ---
RECEIVED PT FROM THE ED AT THIS TIME, FOUR PERSON TRANSFER FROM STREACHER TO BED, PT ABLE TO TALK WITH STAFF SOME, LUISITO CARE COMPLETED AND TURNED TO HIS LEFT SIDE FOR ECHO AT THIS TIME 16:00
--- NOTE | 2019-03-28 17:15 | NUR ---
In and spoke with Jessica, , as Reagan is on Bipap. This family is well known to me. Reagan is currently living at home following SNF stay. [employer] caregivers are working in the home. They have now installed a lift as bedrooms are upstairs, as well as a ramp. Jessica states he continues with frequent multiple sores on lower extremties. He is scheduled for vascular surgery ballooning with a DrMariana at [facility]. 'w preference is for patient to discharge to home when improved.
--- NOTE | 2019-03-28 17:28 | NUR ---
DR RAGSDALE NOTIFIED OF PT TEMP AND NEW ORDERS AT THIS TIME.
--- NOTE | 2019-03-28 17:45 | NUR ---
PT GIVEN RECTAL SUPP DUE TO INCREASE IN TEMP VIA TEMP PROB MONSIVAIS. THEN PT TURNED TO HIS RIGHT SIDE.
--- NOTE | 2019-03-28 18:13 | NUR ---
PT TEMP PER TEMP PROB MONSIVAIS REMAINS 102.2, AXILLARY 97.9, BUT PT FEELS VERY WARM TO TOUCH. PT CONTIOUES TO BE ON BIPAP AT THIS TIME.
--- NOTE | 2019-03-28 18:38 | NUR ---
PT CONTIOUES TO PULL OFF BIPAP AT THIS TIME AND YELLS "I WANT WATER" WITH BIPAP OFF HIS SPO2 DECREASE TO 86% BUT CONTIOUES TO YELL " I WANT WATER" WHEN PLACED ON 2'L VIA NC HIS SPO2 88%. DR RAGSDALE NOTIFIED AND NEW ORDERS RECEIVED.
--- NOTE | 2019-03-28 19:05 | NUR ---
LEVOPHED DRIP STARTED AT THIS TIME.
--- NOTE | 2019-03-28 19:10 | NUR ---
PT YELLING "I AM DRY" MOUTH MOISTENED WITH GREEN SPONGE AT THIS TIME, BP INCREASED WITH TURNING PT TO HIS BACK AND YELLING AT STAFF 106/55 (66). MONSIVAIS DRAINING CLEAR YELLOW URINE, OUTPUT HAS DECREASED THIS PAST HOUR.
--- NOTE | 2019-03-28 19:45 | NUR ---
LEVOPHED DECREASED TO 2 MCG/MIN. BP 138/71 (88), HR 91. PATIENT ALERT, ASKING FOR MOUTH SWABS. FAMILY AT BEDSIDE. DISCUSSED INDICATION FOR WEARING BIPAP AND NOT HAVING WATER, WHICH THE PATIENT IS REQUESTING. BIPAP MASK POORLY FITTING, RT IN ROOM TO REPLACE FOR LARGER SIZE. PATIENT AND FAMILY VERBALIZE UNDERSTANDING. MONSIVAIS TEMP 102.0. AXILLARY TEMP 101.7 F. PATIENT REPORTS FEELING WARM. ROOM TEMP DECREASED.
--- NOTE | 2019-03-28 20:33 | NUR ---
PATIENT IS DROSWY. ALERT AND ORIENTED X4. REQUESTING FREQUENT ORAL SWABS. BIPAP HUMIDITY TURNED OFF DUE TO PATIENT'S TEMP AND FEELING HOT. PATIENT AGREEABLE TO HAVING IT TURNED BACK ON TO ASSIST WITH DRY MOUTH. COOL WASH CLOTH APPLIED TO FOREHEAD. SMALL FAN PLACED AT BEDSIDE. PATIENT REPORTS FEELING MORE COMFORTABLE. TOLERATING BIPAP, WITH RR 18-20. O2 SAT 100% ON 21% Fi02. LUNGS ARE CLEAR IN UPPER LOBES, DIM IN THE BASES. PATIENT DENIES ANY PAIN. MONSIVAIS OUTPUT 25 ML FOR LAST HOUR. APPEARS CONCENTRATED. WEEPING EDEMA NOTED IN JENNIFER LOWER EXTREMITITES. DRESSINGS PLACED ON JENNIFER FOOT WOUNDS BY LEFT IN PLACE. PATIENT'S BP CONTINUES TO BE ADEQUATE ON 2 MCG/MIN LEVOPHED, PROVIDED VERBAL INSTRUCTIONS TO LEAVE IT AT THIS RATE VS TURNING IT OFF. PATIENT PROVIDED WITH CALL LIGHT. LIGHTS OFF PER REQUEST.
--- NOTE | 2019-03-28 22:40 | NUR ---
PATIENT CALLED TO REQUEST WATER. MOUTH SWABS PROVIDED. PATIENT DESAT TO LOW 80% ON ROOM AIR. BIPAP BACK IN PLACE WITH 21% Fi02. O2 SAT INCREASED TO 95%. PATIENT REPOSITIONED TO LEFT SIDE. ARMS SUPPORTED ON PILLOWS. HEELS FLOATED. AXILLARY TEMP 99.9 F. PATIENT COMPLAINS OF BEING HOT, COOL WASH CLOTH APPLIED TO FOREHEAD. BP 172/84 (108), HR 96. LEVOPHED PLACED IN STAND-BY. URINE OUTPUT ADEQUATE.
--- NOTE | 2019-03-28 23:30 | NUR ---
PATIENT TOLERATING BIPAP. O2 SAT 95% ON 21% Fi02. PATIENT IS ORIENTED. REPORTS CHEST AND BACK PAIN, WORSENED WITH MOVEMENT. PATIENT REPOSITIONED FOR COMFORT. VS STABLE. URINE OUTPUT QS.
--- NOTE | 2019-03-29 00:02 | NUR ---
DISCUSSED PATIENT'S ONGOING BACK/CHEST PAIN WITH . ORDERS RECEIVED FOR PO TYLENOL AND PATIENT'S HOME DOSE OF GABAPENTIN.
--- NOTE | 2019-03-29 00:28 | NUR ---
PATIENT TOLERATED ORAL MEDS WITH SIPS OF WATER. BIPAP REMOVED. 4L NC IN PLACE. O2 SAT >92%. PATIENT REPOSITIONED TO HIGH LEFT SIDE PER REQUEST. PATIENT MOANS AND GRUNTS FREQUENTLY. APPEARS UNCOMFORTABLE. REPORTS BACK PAIN 5/10. PRN TYLENOL AND SCHEDULED GABAPENTIN PROVIDED. URINE OUTPUT QS. VS STABLE.
--- NOTE | 2019-03-29 00:47 | NUR ---
PATIENT CONTINUES TO MOAN AND CALL OUT. APPEARS UNCOMFORTABLE. REPORTS ONGOING BACK SPASM LIKE PAIN. REPOSITIONED PER REQUEST TO RIGHT SIDE. O2 SAT 88% ON 4L NC. PATIENT GIVEN SIPS OF WATER AND BIPAP MASK PUT IN PLACE. PATIENT REQUESTING FOOD AND A SODA. ENCOURAGED HIM TO REST AND WAIT UNTIL SEES HIM IN THE MORNING. HE IS AGREEABLE TO THIS. HR SLIGHTLY ELEVATED 110. PATIENT FEELS CHILLED. AXILLARY TEMP 99.6 F. WARM BLANKET PROVIDED.
--- NOTE | 2019-03-29 02:15 | NUR ---
PATIENT NOT TOLERATING BIPAP. CONTINUES TO REMOVE MASK EVEN AFTER DISCUSSING THE INDICATION FOR WEARING BIPAP AND AGREEING TO IT. 4L NC IN PLACE. O2 SAT >90%. PATIENT'S TEMP HAS INCREASED, 103.3 F BY MONSIVAIS TEMP PROBE AND 102.6 F AXILLARY. PATIENT FEELS WARM AND REQUEST BLANKETS BE REMOVED. REPOSITIONED PATIENT TO HIS BACK PER REQUEST. BP HAS DROPPED TO 89/64 (70). URINE OUTPUT HAS SLOWED. LEVOPHED STARTED AGAIN AT 2 MCG/MIN. IV ABX INFUSING. IV SITES WNL X2. PATIENT'S LOWER EXTREMITIES ARE WEEPING THROUGH DRESSINGS. ELEAVTED ON PILLOWS WITH ABSORBANT CHUCKS UNDER EACH LEG. PATIENT REQUESTING SODA. PROVIDED WITH MOUTH SWABS AT THIS TIME.
--- NOTE | 2019-03-29 04:00 | NUR ---
PATIENT TOLERATING 4L NC. UNABLE TO TOLERATE BIPAP AT THIS TIME. FREQUENTLY COMPLAINS OF THIRST, ORAL SWABS PROVIDED. PATIENT REPOSITIONED TO RIGHT SIDE. REPORTS IMPROVED BACK PAIN. LUNG SOUNDS ARE CLEAR IN UPPER LOBES, DIMINISHED IN JENNIFER BASES. PATIENT IS DIAPHORETIC WITH MONSIVAIS TEMP READING OF 102.0 F. COOL WASH CLOTH PROVIDED AND SMALL FAN ON. BP CONTINUE TO BE SOFT, 2 MCG/MIN LEVOPHED INFUSING. SITE WNL.
--- NOTE | 2019-03-29 05:49 | NUR ---
PATIENT CONTINUES TO BE FEBRILE. SHALLOW BREATHING WITH RR >20, PATIENT UNABLE TO KEEP O2 SAT >90% ON 3L NC. PATIENT PROVIDED WITH MOUTH SWABS AND BIPAP PLACED ON PATIENT.
--- NOTE | 2019-03-29 06:10 | NUR ---
PATIENT PROVIDED WITH PRN TYLENOL FOR FEVER, 101.0 F PER AXILLARY.
--- NOTE | 2019-03-29 06:34 | NUR ---
DISCUSSED PATIENT'S CURRENT VS AND URINE OUTPUT WITH MD. NO NEW ORDERS.
--- NOTE | 2019-03-29 08:06 | NUR ---
CALL FROM LAB REGARDING POSITIVE BLOOD CULTURES. GRAM POSITIVE COCCI IN ANAEROBIC BOTTLES IN BOTH SETS. DR RAGSDALE AND PRIMARY NURSE NOTIFIED. ALSO NOTIFIED DR RAGSDALE OF INCREASE IN TEMP AND CONFUSION. ORDER TO GO AHEAD WITH COOLING BLANKET.
--- NOTE | 2019-03-29 08:17 | NUR ---
full bed changed done. [facility] cath cares done on pt. pt is very diaphoretic, temp is elevated at 104.3, ice packs applied to groin and arm pits. pt is talking nonsense, however cooperative. noted that pt is incontinent of small amount of loose stool. bedbath done. pt repositioned up in bed for comfort.
--- NOTE | 2019-03-29 08:44 | NUR ---
PT ATTACHED TO [facility] COOLING BLANKET PER DR.RASCH MCDONALD. PT SET ON MODERATE COOL SPEED WITH A GOAL TEMP OF 98.7. PT CURRENTLY HAS BIPAP ON AND IS PAULA WELL, RESTING WITH EYES CLOSED. LEVOPHED DRIP IS AT 2 MCG/MIN, BP IS 90/53 WITH A MAP OF 62.
--- NOTE | 2019-03-29 09:08 | NUR ---
LEVOPHED DRIP TITRATED UP TO 4 MCG/MIN FOR A BP OF 90/43 (54).
--- NOTE | 2019-03-29 09:34 | NUR ---
LEVO DRIP TITRATED DOWN TO 3 MCG/MIN PER BP 122/61
--- NOTE | 2019-03-29 10:48 | NUR ---
LEVO GGT TITRATED TO 3 MCG/MIN FROM 4 MCG/MIN FOR A BP OF 129/78(90).
--- NOTE | 2019-03-29 11:06 | NUR ---
levophed ggt titrated down to 2 mcg/min for bp of 127/63 (79)
[2019-03-29] MEDS ORDERED: CLEOCIN HCL300 MG PO (11:40)
--- NOTE | 2019-03-29 12:30 | NUR ---
IV SITES ARE INTACT, NO REDNESS OR SWELLING NOTED, FLUIDS AND FLUSHES INFUSE EASILY.
--- NOTE | 2019-03-29 12:49 | NUR ---
PT RESTING IN SEMIFOWLERS POSITION IN BED. PT ALERT AND ORIENTED. REPORT RECEIVED FROM ELLOIT OMALLEY. PT ASSESSMENT COMPLETED. CALL LIGHT AND H2O IN REACH. PT DENIES SOB, PAIN, NAUSEA OR OTHER SYMPTOMS. NO NEEDS OR CONCERNS VOICED AND PT CURRENTLY SIPPING SECONG BOTTLE OF BOWEL PREP AT THIS TIME.
--- NOTE | 2019-03-29 13:25 | NUR ---
PT SLEEPING SOUNDLY AT THIS TIME, [facility] COOLING BLANKET IN PLACE, LEVOPHED DRIP IS RUNNING AT 2 MCG/MIN.
--- NOTE | 2019-03-29 14:36 | EKG ---
[facility] [address] [facility] [place], [place] [address] Signed Sinus tachycardia Cannot rule out Inferior infarct (cited on or before 14-MAY-2016) ST \T\ T wave abnormality, consider lateral ischemia Abnormal ECG When compared with ECG of 28-MAR-2019 09:48, No significant change was found Confirmed by LEXIE RAGSDALE MD ([id number]) on 03/29/2019 2:36:17 PM Electronically Signed By: LEXIE RAGSDALE MD 03/29/19 1436 PATIENT NAME: SAROJ AMEZQUITA Electrocardiogram DATE OF : 49 PHYSICIAN: LEXIE RAGSDALE MD REPORT #: [id number] REPORT IS CONFIDENTIAL AND NOT TO BE RELEASED WITHOUT AUTHORIZATION
--- NOTE | 2019-03-29 14:50 | NUR ---
PT OFF BIPAP FOR A BREAK AND TO TAKE PO MEDICATION. 3L O2 VIA NC PLACED.
--- NOTE | 2019-03-29 15:15 | NUR ---
PT REPOSITIONED IN BED, ALL LINENS CHANGED. PT INCONTINENT OF LARGE SOFT BROWN STOOL, LUISITO CARES DONE, BARRIER CREAM APPLIED. PT ABLE TO GIVE MINIMAL HELP WITH ROLLING FROM SIDE TO SIDE. PT IS COOPERATIVE AND POLITE.
[2019-03-29] MEDS ORDERED: NORVASC10 MG PO (15:59)
[2019-03-29] MEDS ORDERED: CYMBALTA60 MG PO (16:01)
--- NOTE | 2019-03-29 16:02 | NUR ---
LEVOFED GGT OFF AT THIS TIME FOR BP OF 143/78 (95). PT HAS BIPAP BACK IN PLACE. LAYING IN BED WATCHING TV. PT ALERT AND ORIENTED X4, ANSWERS QUESTIONS APPROPRIATLY. PT STATES "I FEEL BETTER THAN I DID THIS MORNING". PT C/O PAIN IN LOW BACK, 650 MG PO TYLENOL GIVEN. PT ABLE TO DRINK FLUIDS EASILY, TAKES PILLS EASILY.
[2019-03-29] MEDS ORDERED: LANTUS SOL100 UNIT/1 SUB-Q (16:07)
[2019-03-29] MEDS ORDERED: VITAMIN D325 MC1 PO (16:36)
--- NOTE | 2019-03-29 16:37 | NUR ---
MED REC COMPLETE
--- NOTE | 2019-03-29 16:57 | NUR ---
Pt sleeping, not awakened. Per nurses pt ran 105.7 fever and was placed on cooling blanket. Fever is now at 100.3. Will cont. to monitor before determining dc plan.
--- NOTE | 2019-03-29 18:59 | NUR ---
PT REPOSITIONED UP IN BED FOR COMFORT. LINENS AND ATTENDS CHANGED PER INCONTINENCE OF LARGE SOFT STOOL. PT PAULA ICE CHIPS WITH ENTHUSIASM. PT ABLE TO ASSIST MORE WITH ROLLING FROM SIDE TO SIDE DURING LUISITO CARE. PT THEN HAD BIPAP BACK IN PLACE, PT TAKEN OFF BIPAP AT 1816 FOR A BREAK. PT IS ALERT AND ORIENTED X4, COOPERATIVE AND POLITED.
--- NOTE | 2019-03-29 20:41 | NUR ---
PATIENT SLEEPING SOUNDLY WITH BIPAP IN PLACE. ALLOWED TO REST AT THIS TIME. PATIENT'S AT BEDSIDE. RR 26, O2 SAT 99% ON 28% Fi02. LUNG SOUNDS ARE CLEAR, DIMINISHED IN THE BASES. ABD SOFT, BOWEL SOUNDS ACTIVE. URINE OUTPUT, 34 MLS THE LAST HOUR. JENNIFER LOWER EXTREMITITES HAVE 2+ PITTING EDEMA. WOUNDS WRAPPED FROM DR. CRUZ. STATES THE DRESSINGS ARE DUE TO BE CHANGED TOMORROW AND THAT DR. CRUZ IS AWARE THE PATIENT IS INPATIENT AT THIS TIME. NO NEW DRAINAGE NOTED ON DRESSINGS. ELEVATED ON PILLOWS TO FLOAT HEELS. MONSIVAIS TEMP READS 100.9 F. PATIENT FEELS COOL TO THE TOUCH. CALL LIGHT IN REACH.
--- NOTE | 2019-03-29 21:14 | NUR ---
SYSTOLIC BLOOD PRESSURES HAVE BEEN LESS THAN 100 X3, MAPS < 65. LEVOPHED STARTED AT 2 MCG/MIN. VS TO CYCLE AT 15MIN INTERVALS. IV SITE WNL.
--- NOTE | 2019-03-29 21:45 | NUR ---
LEVOPHED INCREASED TO 4 MCG/MIN. SEE VS FOR TREND.
--- NOTE | 2019-03-29 22:11 | NUR ---
PT REQUESTS ENSURE. ENSURE DRINK PROVIDED. NO OTHER NEEDS AT THIS TIME. CURTAIN OPEN FOR OBSERVATION.
--- NOTE | 2019-03-30 00:30 | NUR ---
PATIENT SLEEPING SOUNDLY. IV ABX STARTED PER ORDER. PATIENT CONTINUES TO REQUIRE 4 MCG/MIN LEVOPHED, LAST BP 129/70 (84). HR 80'S. TOLEATING BIPAP, 99% O2 SAT WITH 28% Fi02. MONSIVAIS TEMP 100.3 F. URINE OUTPUT 20ML THE LAST HOUR. MD AWARE OF MINIMAL URINE OUTPUT.
--- NOTE | 2019-03-30 03:19 | NUR ---
PATIENT INCONTINENT OF MEDIUM AMOUNT OF SOFT STOOL, LUISITO CARE DONE. PATIENT REPOSITIONED TO LEFT SIDE. PROVIDED WITH ICE CHIPS. PATIENT ORIENTED TO LOCATION AND DATE. REQUESTING FOOD. DISCUSSED PLAN TO EVALUATE PATIENT'S ABILITY TO TOLERATE ORAL INTAKE IN THE MORNING. PATIENT AGREEABLE. BIPAP BACK IN PLACE. PATIENT REPORTS BEING COMFORTABLE. CALL LIGHT IN HAND.
--- NOTE | 2019-03-30 05:58 | NUR ---
PATIENT TOLERATING BIPAP, SLEEPING SOUNDLY. LEVOPHED AT 2 MCG/MIN. LAST BP 127/73 (86). IV SITE WNL.
--- NOTE | 2019-03-30 08:15 | NUR ---
In to see pt, sleeping in bed. Not awakened.
--- NOTE | 2019-03-30 08:20 | NUR ---
IV SITES ARE INTACT, NO REDNESS OR SWELLING NOTED. PT DENIES PAIN AT EITHER SITE, FLUIDS AND FLUSHES INFUSE EASILY. PT IS ALERT AND ORIENTED X4, DENIES NAUSEA REPORTS SOME SOB WITH BIPAP OFF. PT ABLE TO EAT 100% OF HIS BREAKFAST WITH ASSISTANCE. VITALS ARE WNL, LEVOPHED GGT TURNED OFF AT 0716 FOR A BP OF 126/71 (84). PT ABLE TO PAULA PO INTAKE WELL, SWALLOWS PILLS EASILY.
--- NOTE | 2019-03-30 10:12 | NUR ---
PT TRANSFERED TO THE CHAIR FROM THE BED VIA OVERHEAD LIFT AND GREEN SHEET. PT PAULA ACTIVITY WELL. PT REPORTS SOME SOB WHILE OFF THE BIPAP AND ON NC AT 3L O2, O2 SATS REMAIN IN MID 90%. BIPAP PLACED BACK ON PT FOR COMFORT. ALL LINENS CHANGED ON BED. PT HAS CALL LIGHT WITHIN REACH.
--- NOTE | 2019-03-30 11:35 | NUR ---
PT C/O 9/10 CHEST PAIN, EKG ORDERED AND DONE, PT GIVEN NEB TREATMENT. PT IS ALERT AND ORIENTED X4, VITALS ARE WNL AT THIS TIME.
--- NOTE | 2019-03-30 11:45 | NUR ---
PT PLACED BACK ON BIPAP. 650 MG PO TYLENOL GIVEN AT 1140.
--- NOTE | 2019-03-30 12:00 | NUR ---
NITRO DRIP - 1140 DRIP STARTED AT 5 MCG/MIN 1145 TITRATED TO 10 MCG/MIN 1150 TITRATED TO 15 MCG/MIN 1200 TITRATED TO 20 MCG/MIN
--- NOTE | 2019-03-30 12:43 | NUR ---
CHEST X-RAY JUST FINISHED, PT PAULA WELL.
--- NOTE | 2019-03-30 13:42 | NUR ---
PT SITTING UP IN CHAIR, NO FAMILY IN ROOM AT THIS TIME. 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 WILL CHECK AT ANOTHER TIME.
--- NOTE | 2019-03-30 15:20 | NUR ---
transfered pt back to bed from chair via overhead lift. osmani and armstrong cares done, pt incontinent of large soft stool. barrier cream applied to scrotal and osmani area. clean attends, linens, and gown placed. pt given bedbath. pt requests to be back on bipap, and deo well. pt able to assist more with rolling from side to side in bed than yesterday. pt vitals remain stable.
--- NOTE | 2019-03-30 16:15 | NUR ---
CALLED 'S OFFICE, SPOKE WITH BIOLOGICAL SCIENTIST PEDIATRIST , HE STATED HE WOULD DISCUSS THE PLAN WITH .
--- NOTE | 2019-03-30 18:16 | EKG ---
[facility] [address] [place] [address] Signed Normal sinus rhythm Minimal voltage criteria for LVH, may be normal variant Cannot rule out Inferior infarct (cited on or before 14-MAY-2016) Abnormal ECG When compared with ECG of 29-MAR-2019 07:37, No significant change was found Confirmed by LEXIE RAGSDALE MD ([id number]) on 03/30/2019 6:15:59 PM Electronically Signed By: LEXIE RAGSDALE MD 03/30/19 1816 PATIENT NAME: SAROJ AMEZQUITA Electrocardiogram DATE OF : 49 PHYSICIAN: LEXIE RAGSDALE MD REPORT #: [id number] REPORT IS CONFIDENTIAL AND NOT TO BE RELEASED WITHOUT AUTHORIZATION
--- NOTE | 2019-03-30 18:33 | NUR ---
NITRO DRIP - PER DISCUSSION WITH AT 1809 VIA PHONE BEGAN TITRATING NITRO DRIP OFF: 1813 - TITRATED DOWN TO 15 MCG/MIN FROM 20 MCG/MIN 1819 - TITRATED DOWN TO 10 MCG/MIN 1830 - TITRATED DOWN TO 5 MCG/MIN
--- NOTE | 2019-03-30 18:51 | NUR ---
IV SITES ARE INTACT, NO REDNESS OR SWELLING NOTED, PT DENIES PAIN AT EITHER SITE, FLUIDS AND FLUSHES INFUSE EASILY. PT REPORTS IMPROVEMENT IN BACK PAIN WITH APPLICATION OF HOT PACK.
--- NOTE | 2019-03-30 19:25 | NUR ---
PT REPORT RECIEVED FROM CCU RN. CARE OF PATIENT ASSUMED AT THIS TIME. PT RESTING ON BIPAP, CALL LIGHT WITHIN REACH. NO NEEDS AT THIS TIME.
--- NOTE | 2019-03-30 20:15 | NUR ---
IN TO ASSESS PATIENT, REPORTS 8/10 BACK PAIN. PRN PAIN MEDICATION GIVEN, ASSISTED WITH REPOSITIONING IN BED. PT DENIES SHORTNESS OF BREATH. LUNG SOUNDS DIMINISHED IN BOTH BASES. O2 SATURATIONS 100 PERCENT ON 3 L NC AT THIS TIME.
--- NOTE | 2019-03-30 20:35 | NUR ---
PT REPORTS PAIN CONTINUES TO BE AT 8/10 IN BACK. PT IS MOANING. ASSISTED WITH REPOSITIONING AGAIN. CALL LIGHT WITHIN REACH.
--- NOTE | 2019-03-30 21:50 | NUR ---
IN ROOM FOR MEDICATION ADMINISTRATION. PT WAS INCONTINENT OF BOWELS, BED CHANGE REQUIRED. ASSISTED PT WITH REPOSITIONING IN BED, LIDODERM PLACED ON BACK. PT PLACED ON BIPAP AT THIS TIME. CALL LIGHT WITHIN REACH. WILL CONTINUE TO MONITOR.
--- NOTE | 2019-03-30 22:04 | NUR ---
PHONE CALL PLACED TO DR RAGSDALE FOR AN UPDATE IN PATIENTS INCREASED BACK PAIN. ORDERS RECIEVED AT THIS TIME (SEE EMAR).
--- NOTE | 2019-03-30 23:30 | NUR ---
ASSISTED PT WITH REPOSITIONING IN STRETCHER. PT COMPLAINS PAIN IS STILL 6/10 IN BACK. WILL CONTINUE TO MONITOR.
--- NOTE | 2019-03-31 00:16 | NUR ---
IN ROOM FOR ASSESSMENT. PT REPOSITIONED ONTO LEFT SIDE. CONTINUES TO COMPLAIN OF MID BACK PAIN. PRN MEDICATION GIVEN ( SEE EMAR). CALL LIGHT WITHIN REACH.
--- NOTE | 2019-03-31 01:30 | NUR ---
PT MOANING IN ROOM. REPORTS PAIN IS STILL 6/10 IN MID BACK. NO OTHER SYMPTOMS. DENIES SHORTNESS OF BREATH, CHEST PAIN, OR OTHER SYMPTOMS. ASSISTED WITH REPOSITIONING. SATURATIONS 98 PERCENT ON 3 L NC. WILL CONTINUE TO MONITOR.
--- NOTE | 2019-03-31 02:45 | NUR ---
PT APPEARS TO BE SLEEPING AT THIS TIME. NO LONGER MOANING. BREATHING EVEN AND UNLABORED. OXYGEN SATURATIONS REMAIN IN THE HIGH 90'S ON 3 L NC. CALL LIGHT WITHIN REACH. NO FURTHER NEEDS AT THIS TIME.
--- NOTE | 2019-03-31 04:30 | NUR ---
IN ROOM TO ASSESS PATIENT. STATES PAIN IS NOW BACK UP TO A 8/10. PT HAD ANOTHER LARGE STOOL. INCONTINENCE CARE COMPLETED. REPOSITIONED PATIENT AND GAVE PRN MEDICATION FOR PAIN. ASSESSMENT COMPLETED. PATIENT DENIES ANY OTHER NEEDS AT THIS TIME.
--- NOTE | 2019-03-31 09:15 | NUR ---
PATIENT IN EXTREME PAIN IN HIS BACK AND HAS BEEN THROUGH THE NIGHT. NEW LIDOCAIN PATCH PLACED ON AREA. PT STATES, "IT HURTS RIGHT BEHIND MY HEART." PATIENT STATES THIS IS A NEW PAIN AND NOT A PAIN THAT HE NORMALLY HAS AT HOME. PATIENT ALSO GIVEN A WARM PACK FOR HIS MID BACK AREA, AND BACK RUBBED BY THIS RN FOR PATIENT. PATIENT STATES IT FEELS LIKE MUSCULAR, AND HAVING SOMEONE RUB IT DOES HELP RELIEVE THE PAIN. PT NOT WANTING THE CURTAINS IN ROOM OPENEND, BUT DISCUSSED WITH PATIENT IMPORTANCE OF KEEPING DAYS AND NIGHTS STRAIGHT. PT STILL HAS PITTING EDEMA GENERALIZED, DEEP IN HIS HIP AND UPPER LEG DEPENDENT AREAS. IV LASIX GIVEN. IV VANCO AND CEFEPIME D/C PER KIDNEY FUNCITON - IV ROCEPHIN ORDERED. VANCO TROUGH AT 1130 TO BE DRAWN. PT TO TRANSFER TO THE MEDICAL FLOOR TODAY. DR. RAGSDALE IN ROOM TO SEE PATIENT. PATIENT'S OXYGEN NEEDS HAVE DECREASED, CURRRENTLY ONLY NEEDING 1 L OXYGEN TO MAINTAIN SP02. MONSIVAIS DRAINING YELLOW URINE. CONTINUE TO MONITOR CLOSELY. PT WILL TRNASFER WITH TELEMETRY.
--- NOTE | 2019-03-31 10:12 | NUR ---
WAITING ON DR. CRUZ TO ARRIVE FOR PATIENT'S DRESSING CHANGE. PATIENT WILL BE TRANSFERRED TO MEDICAL FLOOR ON TELEMETRY, ROOM 115.
--- NOTE | 2019-03-31 10:59 | NUR ---
DR. CRUZ HERE TO DO PATIENT'S DRESSING CHANGE. PATIENT TOLERATED THIS WELL. PT ASKING MD, "HOWS IT LOOK DOC?" BOTH LEGS REDRESSED WITH IODOFORM PASTE, GAUZE, KERLEX, AND COBAN PER DR. CRUZ. PER MD, WOUNDS TO BE DRESSEED AGAIN NEXT TUESDAY AND HE WILL RETURN TO DO THIS DRESSING FOR PATIENT. PATIENT PLACED ON TELE #2 AT THIS TIME. PT'S PAIN IS AN 8/10.
--- NOTE | 2019-03-31 11:41 | NUR ---
PT ARRIVES TO [facility] VIA BED, REPORT RECEIVED FROM CCU. PT RESTING EYES CLOSED MOANS INTERMITTANTLY WAS JUST MEDICATED WITH IV FENT PRIOR TO TRANSFER
--- NOTE | 2019-03-31 13:18 | NUR ---
PATIENT RESTING IN BED. VITAL SIGNS AND I&O DONE. PATIENT COMPLAINS ABOUT BACK PAIN. RN NOTIFIED. CALL LIGHT WITHIN REACH. NO OTHER NEEDS AT THIS TIME
--- NOTE | 2019-03-31 14:21 | NUR ---
PT BACK CONTINUES TO BE PAINFUL, INITIALLY RATED 9/10 HAS HAD SEVERAL DOSES OF FENT RATES PAIN 7/10. REQUESTED TO BE SHAVEN, BUT NOW REFUSES STATING HE IS GOING TO SLEEP. CONTINUES TO TAKE 02 OFF, INFORMED PT HIS 02 SATS DROP TO THE 70'S, CAUTIONED HIM TO KEEP [address] HE CONTINUES TO REMOVE. PT PROVIDED OXY MASK, HE AGREES THIS IS MORE COMFORTABLE THAN THE NC. PULSE OX PLACED FOR SAFETY.
--- NOTE | 2019-03-31 15:58 | NUR ---
FRESH H20 PROVIDED PT CONTINUES TO GROAN AND C/O PAIN ASSISTED TO REPOSITION FENT ADMINISTERED. PT CONTINUES TO TAKE 02 OFF SATS DROP OXIMETER ALARMS 02 REPLACED SATS RECOVER QUICKLY BUT DIP INTO THE 70'S ON RA
--- NOTE | 2019-03-31 17:20 | NUR ---
PATIENT RESTING IN BED. VITAL SIGNS AND I&O DONE. ICE WATER GIVEN. CALL LIGHT WITHIN REACH. NO OTHER NEEDS AT THIS TIME
--- NOTE | 2019-03-31 17:27 | NUR ---
PT TOLERATES FULL LIQUID MEAL THIS EVENING 100% APPEARS TO BE RESTING BETTER AT THIS TIME. PAIN MEDICATIONS CHANGED PER DR ROD
--- NOTE | 2019-03-31 19:15 | NUR ---
SHIFT REPORT RECEIVED FROM DAYSHIFT ELLIOT GUERRA AT BEDSIDE. PT RESTING IN BED, EYES CLOSED, RR WNL. O2 SAT AND HR WNL. NO DISTRESS NOTED, CALL LIGHT IN REACH. BOARD UPDATED.
--- NOTE | 2019-03-31 21:05 | NUR ---
IN ROOM TO TAKE VS AND ENTER I&O'S. BLOOD GLUCOSE IS 175 AT THIS TIME. PT DENIES FURTHER NEEDS. CALL LIGHT IS CLOSE.
--- NOTE | 2019-03-31 21:25 | NUR ---
PT CALLED WANTING TO INTRODUCE STAFF TO HIS [facility]. HE DENIES FURTHER NEEDS AT THIS TIME. CALL LIGHT IS CLOSE.
--- NOTE | 2019-03-31 21:30 | NUR ---
ASSESSMENT COMPLETE, SCHEDULED MEDS GIVEN (SEE EMAR). PT A/O TO SELF, PLACE, AND DATE. GRANDDAUGHTER IN ROOM TO VISIT. SPOKE TO DR VASQUEZ REGARDING LACK OF SLIDING SCALE ORDERS WITH INSULIN LISPRO. TELEPHONE ORDER READ BACK FOR INSULIN LISPRO SLIDING SCALE MODERATE WM[facility], 1 UNIT ADMINSITERED PER SLIDING SCALE. DRESSINGS TO BILATERAL FEET CDI, SCANT SHADOWING NOTED TO RIGHT BIG TOE DRESSING, CMS INTACT. BILATERAL PEDAL PULSES NOTED, CAP REFILL WNL. PT DENIES NUMBNESS AND TINGLING AT THIS TIME. INTERMITTENT MOANING NOTED, PT REPORTS GENERALIZED BACK PAIN, UNABLE TO GIVE PAIN MEDICATION AT THIS TIME. PT VERBALIZED UNDERSTANDING. CATH CARE COMPLETE, NO ADDITIONAL NEEDS. CALL LIGHT IN REACH.
--- NOTE | 2019-03-31 21:35 | NUR ---
IN ROOM TO RECHECK BLOOD GLUCOSE BECAUSE 30 MINUTES HAD PASSED SINCE LAST CHECK D/T A CHANGE NEEDING TO BE MADE TO INSULIN ORDER. ORDER IS NOW CORRECTED WITH S/S RANGES. PRIMARY RN JONATHON IS IN THE ROOM WITH THE PT AT THIS TIME.
--- NOTE | 2019-03-31 22:20 | NUR ---
PT CALLED REQUESTING HIS LIGHT OFF AND TO LOWER HIS HEAD. HE DENIES FURTHER NEEDS AND CALL LIGHT IS CLOSE.
--- NOTE | 2019-03-31 23:03 | NUR ---
prn oxycodone administered for 8-9/10 generalized back pain. pt a/o, 2lnc in place. o2 sat 97, hr 76. no further needs, call light in reach.
--- NOTE | 2019-04-01 | NUR ---
PT RESTING IN BED, PT AWOKE BRIEFLY. RR 18, 2LNC IN PLACE. O2 SAT IN UPPER 90'S, HR WNL. BIPAP OFFERED, PT DECLINED. EDUCATION PROVIDED, PT AGAIN REFUSED BIPAP AND STATES "I'M GOOD, THANKS THOUGH". WILL MONITOR. CALL LIGHT IN REACH.
--- NOTE | 2019-04-01 01:41 | NUR ---
CPOX ALARMING, 80%. PT HOB ELEVATED, NC PLACED BACK INTO NARES, PT EDUCATED TO TAKE SEVERAL DEEP BREATH THROUGH HIS NOSE. PT EDUCATED TO LEAVE NC IN HIS NOSE TO KEEP OXYGEN LEVEL THERAPUTIC. PT VERBALIZES UNDERSTANDING. CPOX 94%. PT DENIES PAIN AT THIS TIME. PT EDUCATED ON THE USE OF THE CALL LIGHT. NO OTHER NEEDS AT THIS TIME. CALL LIGHT IN REACH.
--- NOTE | 2019-04-01 01:42 | NUR ---
IN ROOM TO ROUND ON PT. PT MOANING IN BED, UNABLE TO ADMINISTER PAIN MEDICATION DUE TO TIME RESTRICTION. ASSISTED PT WITH REPOSITIONING AND PROVIDED PT WITH HEAT BACK TO BACK. NO FURTHER NEEDS, CALL LIGHT IN REACH.
--- NOTE | 2019-04-01 02:56 | NUR ---
PT'S CPOX WAS BEEPING, UPON ENTERING THE ROOM HIS NC WAS NOT ON. PLACED PATIENT ON 2L OXYMASK O2 SAT IS NOW WNL. PT DENIES FURTHER NEEDS. CALL LIGHT IS WITHIN REACH.
--- NOTE | 2019-04-01 03:00 | NUR ---
O2 SAT ALARMING, O2 86%. 2L OXYMASK PLACED BACK ON PT AND DISCUSSED WITH PT IMPORTANCE TO LEAVE MASK IN PLACE. PT VERBALIZED UNDERSTANDING, CALL LIGHT IN REACH.
--- NOTE | 2019-04-01 03:10 | NUR ---
PT REMOVED OXYMASK, REPLACED IT AND REMINDED PT TO KEEP IT ON. HE DENIES NEEDS AT THIS TIME. CALL LIGHT IS CLOSE.
--- NOTE | 2019-04-01 04:55 | NUR ---
ASSESSMENT COMPLETE, NO NEW CONCERNS. VSS, PT ON 2LNC, O2 SAT ABOVE 90 AND HR WNL. PT REPORTS 8/10 BACK PAIN, PRN OXYCODONE ADMINISTERED. PT A/O TO SELF, PLACE, EVENTS/SURROUNDINGS. NO CHANGE IN APPEARANCE IN BLE WOUND DRESSINGS SINCE PREVIOUS ASSEMENT. DRESSINGS CDI, BILATERAL PEDAL PULSES OBTAINED. SKIN COOL AND DRY TO THE TOUCH. FRESH WATER AND DIET APPROVED SNACK PROVIDED. CALL LIGHT IN REACH.
--- NOTE | 2019-04-01 05:58 | NUR ---
PT MOANED THROOUGHOUT SHIFT, PRN OXYCODONE ADMINISTERED Q6H FOR PAIN CONTROL. A/O TO SELF, PLACE, AND EVENTS. REPEATEDLY REMOVED NC/OXYMASK DURING SHIFT, SATS DROPPED TO 80'S ON RA. DRESSINGS TO BLE CDI, ELEVATED ON PILLOWS. ADA DIET, TOLERATING WELL. INSULIN SS. CATHETER VOIDING QS, NO BM THIS SHIFT.
--- NOTE | 2019-04-01 08:15 | NUR ---
PT LYING IN BED CRYING OUT, MOANING. REPORTS BACK PAIN. REPOSITIONED MULTIPLE TIMES. PT STATES "I NEED HELP!" BUT CAN'T SPECIFY WHAT HE NEEDS HELP WITH. PT REPEATEDLY REMOVES NASAL CANNULA, REAPPLIED. O2 SAT 84% ON RA, 95% ON 2LNC. MONSIVAIS IN PLACE PUTTING OUT QUANITY SUFFICIENT DARK YELLOW URINE.
--- NOTE | 2019-04-01 10:17 | NUR ---
ADMINSTERED PAIN MEDICATION. PT CONTINUES TO MARIA ELENA, RATES PAIN 9.5/10.
--- NOTE | 2019-04-01 10:45 | NUR ---
PT REFUSED TO EAT BREAKFAST, DRANK AN ENSURE. CONT TO MOAN AND CRY OUT. REPOSITIONED MULTIPLE TIMES. PT STATES "THAT'S OK". CALL LIGHT WITHIN REACH.
--- NOTE | 2019-04-01 13:22 | NUR ---
PT APPEARS TO BE SLEEPING. RESP EVEN AND UNLABORED. PT VISIBLE FROM NURSES STATION. CALL LIGHT WITHIN REACH.
--- NOTE | 2019-04-01 15:00 | NUR ---
PT HAD SMALL INCONTINENT BM. ATTENDS CHANGED, PT CLEANED THOROUGHLY, LUISITO CARE COMPLETEED, BARRIER CREAM APPLIED. PT REPOSITIONED. CONT TO MOAN AND C/O BACK PAIN. REFUSING TO EAT LUNCH, STATES HE IS NOT HUNGRY AND NOTHING SOUNDS GOOD. CALL LIGHT WITHIN REACH.
--- NOTE | 2019-04-01 17:00 | NUR ---
PT LYING IN BED MOAINING, REPORTING 8/10 BACK PAIN. MEDICATED WITH PRN OXY AND TYLENOL. AND GRANDDAUGHTER AT BEDSIDE. VS OBTAINED AND I&O'S COMPLETED. PT REFUSING DINNER. PT REPOSITIONED. PT YANKED OFF NC REPORTING THAT IT WAS HURTING HIS EARS. REQUESTED OXYMASK, PLACED AT THIS TIME AT 2L 02. CALL LIGHT WITHIN REACH.
--- NOTE | 2019-04-01 19:05 | NUR ---
SHIFT REPORT RECEIVED FROM DAYSHIFT ELLIOT HE AT BEDSIDE. PT RESTING IN BED, OXYMASK IN PLACE, RESPIRATIONS EVEN AND UNLABORED. NO DISTRESS NOTED. CALL LIGHT IN REACH.
--- NOTE | 2019-04-01 19:05 | NUR ---
SHIFT REPORT RECEIVED FROM DAYSFT RN YING AT BEDSIDE. PT RESTING IN BED, RESPIRATIONS EVEN AND UNLABORED. 6L OXYMASK IN PLACE, PER REPORT PT REPEATEDLY REMOVES NC/OXYMASK AND ON HIFT DEMANDED O2 BE TURNED UP SO HE COULD HEAR O2 THERAPY. NO DISTRESS NOTED AT THIS TIME, CALL LIGHT IN REACH. DRESSINGS TO BLE CDI.
--- NOTE | 2019-04-01 19:56 | NUR ---
PATIENT CALLED OUT TO STAFF. PATIENT STATED "I AM GETTING SO SICK." PATIENT GIVEN PRN NAUSEA MEDICATION. PATIENT REPOSITIONED. PATIENTS VITALS TAKEN AND RECORDED. PATIENTS MONSIVAIS EMPTIED AND MONSIVAIS CARE COMPLETED. PATIENTS BS CHECKED BY CATY KAHN. PATIENT DENIES ANY FURTHER NEEDS. CALL LIGHT IN REACH.
--- NOTE | 2019-04-01 20:08 | NUR ---
ASSESSMENT COMPLETE, SCHEDULED MEDS GIVEN (SEE EMAR). UNABLE TO GIVE PAIN MEDICATION AT THIS TIME, INTERMITTENT MOANING NOTED FROM PT. PT REPORTS TOLERABLE 6/10 PAIN IN BACK. OXY MASK OFF OF PT, EDUCATED PT ON IMPORTANCE ON LEAVING O2 THERAPY IN PLACE. VSS, NO DISTRESS NOTED. PT DOES REQUIRE FREQUENT REMINDING REGARDING O2 THERAPY. BLE DRESSINGS CDI, ELEVATED ON PILLOWS. BILATERAL PEDAL PULSES OBTAINED. NO FURTHER NEEDS AT THIS TIME, CALL LIGHT IN REACH.
--- NOTE | 2019-04-01 21:30 | NUR ---
PT CALLING OUT FOR HELP, IN ROOM TO ASSIST PT. PT HAS RIGHT LEG HANGING OUT OF BED. ASSISTED PT'S LEG BACK IN BED AND REPOSITIONED PT. ALSO PLACED OXYMASK BACK ON PT'S FACE. EDUCATED PT ON IMPORTANCE IN LEAVING O2 THERAPY IN PLACE, PT VERBALIZED UNDERSTANDING AND STATES, "OKAY". NO FURTHER NEEDS, CALL LIGHT IN REACH.
--- NOTE | 2019-04-01 21:52 | NUR ---
PT REMOVING OXYMASK FROM FACE, AGAIN REMINDED OF IMPORTANCE TO LEAVE O2 MASK IN PLACE. PT VERBALIZED UNDERSTANDING. 4LOXYMASK IN PLACE, O2 SAT MID 90'S. CALL LIGHT IN REACH.
--- NOTE | 2019-04-01 22:58 | NUR ---
PT MOANING AND HEARD FROM NURSE'S STATION. REPORTS 7/10 PAIN, PRN OXYCODONE AND TYLENOL ADMINISTERED. NO FURTHER NEEDS, CALL LIGHT IN REACH.
--- NOTE | 2019-04-01 23:22 | NUR ---
IN ROOM TO ASSIST PT. PT BOOSTED IN BED AND REPOSITIONED WITH HELP FROM CATY KAHN AND SCIENTIFIC WRITERELLIOT AGGARWAL. PT REPEATEDLY REMOVES OXYMASK, EDUCTION GIVEN. PT ON 4LOXYMASK, O2 SATS MAINTAINING MID LOW TO UPPER 90'S. HOB ELEVATED, NO FURTHER NEEDS. PT APPEARS MORE COMFORTABLE, CALL LIGHT IN REACH.
--- NOTE | 2019-04-02 00:53 | NUR ---
PT RESTING QUIELTY IN BED, EYES CLOSED. RESPIRATIONS EVEN AND UNLABORED. NO DISTRESS NOTED, CALL LIGHT IN REACH.
--- NOTE | 2019-04-02 04:02 | NUR ---
PT RESTING IN BED, EYES CLOSED. RESPIRATIONS 17, 2L OXYMASK, O2 SAT SUSTAINING IN MID TO UPPER 90'S. NO DISTRESS NOTED, CALL LIGHT IN REACH.
--- NOTE | 2019-04-02 04:35 | NUR ---
PT HAD UNEVENTFUL NIGHT, SLEPT OFF AND ON. VSS, 2L OXYMASK/NC, PERIODICALLY REMOVES FROM FACE. PAIN CONTROLLED WITH PRN TYLENOL AND OXYCODONE. ADA DIET, INSULIN SS. REPORTED NAUSEA, RESOLVED WITHOUT MEDS. MONSIVAIS CATHETER, VOIDING QS. NO BM. DRESSINGS TO BLE CDI.
--- NOTE | 2019-04-02 05:17 | NUR ---
ASSESSMENT COMPLETE. PT DROWSY, ORIENTED TO SELF. PT STATES, "I'M TIRED". VSS, PT ON 2LNC. SKIN COOL TO THE TOUCH, PRN ACCUCHECK COMPLETE, RESULT WNL. BLANKET GIVEN. OCCASSIONAL MOANING NOTED, PT DOES NOT RATE PAIN. REPOSITIONED IN BED WITH HELP FROM CRISS BYRNE. PT APPEARS COMFORTABLE AT THIS TIME, WILL MONITOR. CATHER DRAINING QS YELLOW URINE. NO CHANGE IN BLE DRESSING APPEARANCE. BILATERAL PEDAL PULSES NOTED. CALL LIGHT IN REACH.
--- NOTE | 2019-04-02 07:48 | NUR ---
PATIENT SLEEPING. CALL LIGHT WITHIN REACH. NO OTHER NEEDS AT THIS TIME
--- NOTE | 2019-04-02 08:27 | NUR ---
PT APPEARS TO BE SLEEPING SOUNDLY. RESP EVEN AND UNLABORED. 2LNC O2 IN PLACE.
--- NOTE | 2019-04-02 09:43 | NUR ---
PATIENT RESTING IN BED. VITAL SIGNS AND I&O DONE. PATIENT'S BREAKFAST ORDERED. CALL LIGHT WITHIN REACH. NO OTHER NEEDS AT THIS TIME
--- NOTE | 2019-04-02 10:45 | NUR ---
PATIENT RESTING IN BED. CATHETER CARE DONE. CALL LIGHT WITHIN REACH. NO OTHER NEEDS AT THIS TIME
--- NOTE | 2019-04-02 11:05 | NUR ---
PT CRYING OUT, MOANING. DOESN'T KNOW WHAT HE WANTS WHEN ASKED IF HE NEEDS SOMETHING. ASSISTED PT TO REPOSITION SAYS "THANK YOU, THATS BETTER." YODIT PUTTING OUT QS DARK YELLOW URINE WITH SEDIMENT. CALL LIGHT WITHIN REACH.
--- NOTE | 2019-04-02 12:24 | NUR ---
REPAIR TABLE OPERATOR CAME OUT OF ROOM AND LET ME KNOW SHE HAD LOWERED THE PATIENTS HOB PER HIS REQUEST, I RAISED HIS HOB PER RN REQUEST. CALL LIGHT IN PLACE.
--- NOTE | 2019-04-02 13:20 | NUR ---
PT SITTING UP IN BED WATCHING TV. CONT TO MOAN WHILE AWAKE. DENIES NEEDS OR CONCERNS AT THIS TIME. REPOSITIONED. DRESSINGS TO BILAT FEET REMAIN CDI. CALL LIGHT WITHIN REACH.
--- NOTE | 2019-04-02 13:49 | NUR ---
PATIENT SLEEPING. VITAL SIGNS AND I&O DONE. CALL LIGHT WITHIN REACH. NO OTHER NEEDS AT THIS TIME
--- NOTE | 2019-04-02 14:00 | NUR ---
Attempted to see patient x 2 today. Pt. is sleeping and not awakened. Attempted to call , but no answer. Would like to discuss with if she would like SNF placement as pt is requiring full assist. She initial declined SNF as she felt she had enough help with [facility] he alternate apartment hotel manager service.
--- NOTE | 2019-04-02 14:02 | NUR ---
PT ASLEEP, WILL CHECK BACK AGAIN.
--- NOTE | 2019-04-02 15:21 | NUR ---
PT LYING IN BED ON BACK, HOB 30 DEGREES. EYES CLOSED, APPEARS TO BE RESTING SOUNLY, RESP EVEN AND UNLABORED. CALL LIGHT WITHIN REACH.
--- NOTE | 2019-04-02 16:33 | NUR ---
PATIENT SLEEPING. IN ROOM. CALL LIGHT WITHIN REACH. NO OTHER NEEDS AT THIS TIME
--- NOTE | 2019-04-02 17:03 | NUR ---
Certified Heart Failure Nurse Notes: Diagnosis: ACUTE RESP FAILURE/ACUTE CHF SYSTOLIC. Pulp House Supervisor- not listed PCP Jamar Manuel MD Date of echocardiogram 03/29/19. Systolic heart failure, acute versus acute on chronic with left ventricular ejection fraction of 40% in setting of sepsis. Social support system: Spoke to spouse Jessica today while patient sleeping. She states son and family are supportive. Weight monitoring: Patient unable to perform daily weights at home due to inability to stand safely. Symptom management: Addressed monitoring and reporting changes in symptoms utilizing Zones form Transportation mode: Spouse and son drive Diet: Usual meals include home cooked food. states she purchases fresh or frozen fruits and vegetables. Avoids canned foods. Fixes salmon, tuna, and eggs for primary protein sources. Does buy lunch meats to have on hand for a quick snack. Dines out less than one times per week. Recommended <2300 mg sodium a day (unless otherwise prescribed by physician) and label reading for sodium content. Usual physical activity: Chair bound. Was participating with home physical therapy exercises in chair and bed using resistance bands. Recommend restarting when cleared by physician to maintain muscle strength. Medication routine: administers medications. No concerns. Has been counseled on minimizing/avoiding use of NSAIDs Advanced directive: Not discussed at this initial visit Recommendations prior to discharge: Unit nurses to provide and review [facility] heart failure book and Zones magnet Discharge weight less than admit weight. Discharge BNP less than admit (as per [facility] Heart Failure DC Bundle) Follow up appointment made so patient is seen within 7 days of DC Barriers to self-care include: comorbidities and lack of physical strength Follow-up plans: As per physician. This service will follow up with phone call post discharge. Patient does not qualify for cardiac rehab at this time. Teaching materials given today: [facility] contact information. Low Sodium Shopping list. Lower sodium dining list. Flavoring food handout.
--- NOTE | 2019-04-02 17:40 | NUR ---
PATIENT SITTING UP IN BED. PATIENT FED. VITAL SIGNS AND I&O DONE. ICE WATER GIVEN. CALL LIGHT WITHIN REACH. NO OTHER NEEDS AT THIS TIME
--- NOTE | 2019-04-02 18:04 | NUR ---
PT ATE SMALL AMOUNT OF DINNER WITH MINIMAL ASSIST. PT REPOSITIONED. CONT TO MOAN. LIGHTS TURNED OFF PER PT REQUEST. CALL LIGHT WITHIN REACH.
--- NOTE | 2019-04-02 19:15 | NUR ---
CHARGE NURSE REPORT RECEIVED FROM [facility]. PT IN BED, O2 IN PLACE, EYES CLOSED.
--- NOTE | 2019-04-02 19:30 | NUR ---
REPORT RECEIVED FROM DAY SHIFT RN. PT LYING IN BED MOANING AND CALLING OUT. PT HAD REMOVED OXYGEN CANNULA STATING "IT BOTHERS ME". CANNULA REPLACED. REPOSITIONED PT IN BED WITH PILLOWS AND TWO STAFF ASSIST. ASSISTED PT TO CALL , NO ONE AT HOME ANSWERED. ENCOURAGED PT TO USE NURSE CALL LIGHT INSTEAD OF CALLING OUT. CALL LIGHT WITHIN REACH.
--- NOTE | 2019-04-02 20:00 | NUR ---
PT YELLING, WANTING "PAVITHRA" THIS NURSE ASKED PT WHAT HE NEEDED, HE SAID I NEED PAVITHRA TO STAY OUT OF MY NOSE. NOTED OXYGEN TUBING OUT OF NOSE, SUGGESTED PUTTING IT BACK, HE WAVED IT AWAY SAID NO, AND THEN SAID HE WANTED TO HEAR PAVITHRA SING. TOLD PT PAVITHRA WASNT HERE, HE THEN SAID YES, ON TV. NOTED PT WAS WATCHING A SHOW ABOUT BUILDING IN [place]. REMINDED PT TO USE CALL LIGHT. DID ALLOW O2 BACK ON PRIOR TO THIS NURSE LEAVING ROOM
--- NOTE | 2019-04-02 21:50 | NUR ---
PM ASSESSMENT COMPLETE. PM MEDS GIVEN WITHOUT ISSUE. PT ALERT AND ORIENTED X 3. REPOSITIONED IN BED WITH PILLOWS AND 2PA. PRN GIVEN FOR C/O BACK PAIN. DRESSING ON BLE INTACT. MONSIVAIS PATENT, DRAINING QS, SEDIMENT NOTED. 2L/OXYMASK IN PLACE. CALL LIGHT IN REACH.
--- NOTE | 2019-04-02 23:27 | NUR ---
pt used call light to ask for some juice. I asked RN Lala since he is on an ADA diet and she stated "as long as it is diulated well." Nothing further was needed by pt.
--- NOTE | 2019-04-03 00:46 | NUR ---
PT CONTINUES TO MOAN AND CALL OUT OCCASIONALLY. IN TO ROOM TO ASSIST WITH SIPS OF WATER AND REPOSITION WITH PILLOWS. ENCOURAGED PT TO USE CALL LIGHT.
--- NOTE | 2019-04-03 01:10 | NUR ---
PT MEDICATED WITH PRN FOR C/O BACK PAIN. PT REMAINS RESTLESS AND CONTINUES MOANING AND CALLING OUT. REPOSITIONED AND OFFERED SIPS OF FLUIDS. OXYMASK 2L IN PLACE.
--- NOTE | 2019-04-03 04:22 | NUR ---
V/S AND I&O TAKEN AND CHARTED. PATIENT REPOSITIONED.
--- NOTE | 2019-04-03 04:25 | NUR ---
PT MEDICATED WITH PRN FOR C/O PAIN. ASSESSMENT COMPLETE. PT REPOSITIONED IN BED WITH 2PA AND PILLOWS.
--- NOTE | 2019-04-03 05:18 | NUR ---
patient used call light to ask to be repositioned. He did not need anything further at this time.
--- NOTE | 2019-04-03 05:18 | NUR ---
PT MOSTLY RESTLESS. ALERT AND ORIENTED FOR THE MOST PART, USES CALL LIGHT. CAN BE FORGETFUL AND NEED REORIENTATION. OXYGEN 2L OXYMASK. BLOOD SUGAR CHECKS AND SLIDING SCALE INSULIN. DR. CRUZ FOLLOWING FOR BLE ULCERS. DRESSINGS CDI. MONSIVAIS WITH SEDIMENT. IV ABX.
--- NOTE | 2019-04-03 07:45 | NUR ---
BEDSIDE REPORT RECEIVED FROM ARTURO ZARATE. WHITE BOARD UPDATED. PATIENT AWAKE LYING IN BED. COMPLAINS OF BACK PAIN. WANTED HEAD OF BED FLAT. LOWERED HEAD FOR PATIENT. NO OTHER NEEDS AT THIS TIME.
--- NOTE | 2019-04-03 07:48 | NUR ---
PATIENT RESTING IN BED. PATIENT REFUSED TO TAKE A SHOWER OR HAVE A BEDBATH TODAY. PATIENT'S BREAKFAST ORDERED. CALL LIGHT WITHIN REACH. NO OTHER NEEDS AT THIS TIME
--- NOTE | 2019-04-03 08:39 | NUR ---
PATIENT SITTING UP IN BED. PATIENT FED. PATIENT'S HANDS AND FACE CLEANED. GOWN CHANGED. WARM BLANKET PROVIDED. CALL LIGHT WITHIN REACH. NO OTHER NEEDS AT THIS TIME
--- NOTE | 2019-04-03 09:31 | NUR ---
PATIENT RESTING IN BED. VITAL SIGNS AND I&O DONE. CALL LIGHT WITHIN REACH. NO OTHER NEEDS AT THIS TIME
--- NOTE | 2019-04-03 10:32 | NUR ---
PT WORKING WITH PHYSICAL THERAPISTS AT THIS TIME.
--- NOTE | 2019-04-03 11:40 | NUR ---
PATIENT RESTING IN BED. PATIENT'S ATTENDS CHANGED. PATIENT REPOSICIOTIONED SUPINE. TWO PERSON ASSISTING CALL LIGHT WITHIN REACH. NO OTHER NEEDS AT THIS TIME
--- NOTE | 2019-04-03 11:50 | NUR ---
In to visit with Reagan. Jessica not in. Reagan talking about something under the TV. Not clear what he is refering to. Called and spoke with Jessica. Discussed his deconditioned statua and needing help to get in and out of bed. Pt requires [place] for transfers. Discussed paid pc and she states they are there a total of 6 hours, 2 x per week. She does not feel she can handle him at home. She would like him to go to [facility]. Let her know I will request a room.
--- NOTE | 2019-04-03 12:02 | NUR ---
PT RESTING IN BED, AWARE OF MY PRESENCE. CONVERSATION HAMPERED BY INTERMITTENT COUGH BY PT. HE WAS ABLE TO SAY HE SPEPT FAIRLY WELL. GAVE PT A BLESSING, WILL FOLLOW NEEDED
--- NOTE | 2019-04-03 13:22 | NUR ---
PATIENT RESTING IN BED. VITAL SIGNS AND I&O DONE. CALL LIGHT WITHIN REACH. NO OTHER NEEDS AT THIS TIME
--- NOTE | 2019-04-03 13:30 | NUR ---
Spoke with Dr. Cary. Pt will be able to dc tomorrow. Attempted to call Jessica no answer.
--- NOTE | 2019-04-03 14:00 | NUR ---
RECIEVED REPORT FROM JOANNE ZARATE. PT LYING IN BED MOANING. REPORTS CHRONIC BACK PAIN. MONSIVAIS IN PLACE PUTTING OUT CLEAR PALE YELLOW URINE. DENIES NEEDS OR CONCERNS AT THIS TIME. CALL LIGHT WITHIN REACH.
--- NOTE | 2019-04-03 14:35 | NUR ---
Was able to contact [place]. Discussed options of discharge with her. She states she does not feel she can handle him at home. Let her know he was somewhat confused when I spoke with him today. She states he was this way yesterday also. She feels SNF would be best. Offered [facility], [facility], or [facility]. She [facility] as he has been at all and [facility] is the closest. Asked if she would like me to tell him and she denies, states she will come in with her son tomorrow and talk with him. Let her know I will send the chart to t to see if they can take him.
--- NOTE | 2019-04-03 14:57 | NUR ---
PATIENT ON A 60 GRAM CONSISTENT CARB DIET FOR DIABETES. HIS INTAKE VARIES. HE ATE 100% OF BREAKFAST BUT ONLY 30% OF LUNCH TODAY. ON 04/01 HE REFUSED MEALS. HE DID DRANK AN ENSURE THOUGH. CONTINUE TO PROVIDE ENSURE HIGH PROTEIN WHICH IS THE LOWER SUGAR DRINK IF REFUSING MEALS OR ONLY EATING BITES AT A TIME.
--- NOTE | 2019-04-03 16:48 | NUR ---
PT LYING IN BED MOANING. REQUESTED TO CALL . DIALED NUMBER FOR PT AND GAVE HIM PHONE.
--- NOTE | 2019-04-03 17:36 | NUR ---
PATIENT RESTING IN BED. VITAL SIGNS AND I&O DONE. CALL LIGHT WITHIN REACH. NO OTHER NEEDS AT THIS TIME
--- NOTE | 2019-04-03 17:43 | NUR ---
PT SITTING UP IN BED EATING DINNER INDEPENDENTLY. CALL LIGHT WITHIN REACH.
--- NOTE | 2019-04-03 19:41 | NUR ---
IN ROOM FOR REPORT, PARAM ZARATE IS IN ROOM TALKING WITH PT. CALL LIGHT IS CLOSE AND BED ALARM IS ON.
--- NOTE | 2019-04-03 19:47 | NUR ---
pt calling me out by name, I went to see if he needed assistance and helped reposition pt. He needed nothing further at this time.
--- NOTE | 2019-04-03 21:23 | NUR ---
pt continues to call out for help, but upon entering the room he states he does not need anything.
--- NOTE | 2019-04-03 21:54 | NUR ---
ELLIOT Powers requested assistance rolling pt to take off patch on his lower back. Nothing further needed at this time.
--- NOTE | 2019-04-03 21:57 | NUR ---
IN ROOM TO ADMINISTER MEDICATIONS AND ASSESS PT. ADMINISTERED OXYCODONE FOR BACK PAIN. DRESSINGS ON FEET REMAIN INTACT AT THIS TIME. HE DENIES NEEDS AND BED ALARM IS ON AND CALL LIGHT IS CLOSE.
--- NOTE | 2019-04-03 23:10 | NUR ---
PT CALLED OUT HELP, UPON ENTERING THE ROOM HE WAS RAISING HIS ARM AND YELLED "I NEED THIS SPRAYED" THEN SAID "CUT THIS OFF". TOLD HIM HE NEEDS TO KEEP HIS ARM BANDS ON BECAUSE HE IS IN THE HOSPITAL. ADVISED HIM TO CALL IF HE NEEDS SOMETHING BUT HE NEEDS TO TRY TO SLEEP.
--- NOTE | 2019-04-03 23:42 | NUR ---
PT CALLED OUT OF HELP. UPON ENTERING THE ROOM HE SAYS HIS BACK HURTS. REMINDED HIM THAT HE HAD PAIN MEDICINE AND REPOSITIONED HIM IN BED. HE SAYS IT FEELS BETTER. HE DENIES FURTHER NEEDS.
--- NOTE | 2019-04-04 00:16 | NUR ---
PT CALLED OUT FOR HELP, UPON ENTERING THE ROOM HE SAID THE GIRLS ON THE TV NEED HELP WITH THEIR FEET. REMINDED THE PT HE IS IN THE HOSPITAL AND NOT TO CALL OUT FOR HELP UNLESS HE REALLY NEEDS HELP AND REMINDED HIM HOW TO USE HIS CALL LIGHT. BED ALARM IS ON.
--- NOTE | 2019-04-04 00:41 | NUR ---
PT CALLED OUT FOR HELP, ASSISTED HIM IN ROLLING ON HIS SIDE. HE DENIES FURTHER NEEDS. CALL LIGHT IS CLOSE AND BED ALARM IS ON.
--- NOTE | 2019-04-04 02:08 | NUR ---
WITH ASSIST OF ANOTHER STAFF MEMBER, PT WAS REPOSITIONED HE HAS BEEN RESTLESS, COMPLAINING HE NEEDS TO SLEEP, THEN WILL REMOVE HIS OXYGEN, CANDELARIA HELP ONLY TO DISCUSS SOMETHING ON TV. DENIES PERSONAL NEEDS. HOB ELEVATED.
--- NOTE | 2019-04-04 03:10 | NUR ---
PT USED CALL LIGHT, UPON ENTERING ROOM HE SAID "I NEED TO TASTE IT" WHEN ASKED TO CLAIRIFY HE SAID "TACO SOLIZ, I MEAN TACO TIME". REMINDED PT HE IS IN HOSPITAL AND WE DO NOT HAVE ANY TACO TIME. HE SAID "ORDER IT" REMINDED PT OF HIS SURROUNDING AND THAT WE CANNOT GET TACO TIME. ENCOURAGED PT TO TRY TO SLEEP. CALL LIGHT IS CLOSE AND ROOM IS CLOSE TO NURSES STATION.
--- NOTE | 2019-04-04 03:35 | NUR ---
ADMINISTERED TYLENOL FOR BACK PAIN. PT REMOVED NC, REPLACE O2 WITH OXYMASK. PT DENIES FURTHER NEEDS AT THIS TIME. CALL LIGHT IS WITHIN REACH.
--- NOTE | 2019-04-04 04:30 | NUR ---
PT IS RESTING WITH EYES CLOSED, RR IS EVEN AND NONLABORED. CALL LIGHT IS CLOSE.
--- NOTE | 2019-04-04 04:52 | NUR ---
ADMINISTERED OXYCODONE FOR PAIN, PT DENIES FURTHER NEEDS AT THIS TIME. CALL LIGHT IS CLOSE AND BED ALARM IS ON.
--- NOTE | 2019-04-04 05:36 | NUR ---
PT IS AWAKE IN BED, SCRAPER HAND PARAM IS TAKING VS.
--- NOTE | 2019-04-04 06:50 | NUR ---
PT IS RESTING WITH EYES CLOSED, RR IS EVEN AND NONLABORED. CALL LIGHT IS CLOSE.
--- NOTE | 2019-04-04 07:49 | NUR ---
BEDSIDE SHIFT REPORT RECEIVED FROM MEDINA ZARATE. WHITE BOARD UPDATED. PATIENT AWAKE AND VERY CONFUSED. ASKING REFRIGERATION TECH TO "PUT THE TRAY ON THE THIRD ROW" AND POINTING TO THE CEILING. OXYGEN FOUND OFF. REPLACED NASAL CANNULA 2L O2. TAPED WITH FOAM TAPE TO FACE. PATIENT STILL CALLING OUT TO STAFF. CALLING "JOANNE!". THIS RN REORIENTED PATIENT. HE IS UPSET ABOUT BEING IN THE HOSPITAL AND WANTS TO GO HOME. EXPLAINED THAT THE STAFF WAS WORKING ON GETTING HIM MORE HELP THAT HE NEEDS AND PLANNING HIS DISCHARGE. REORIENTED TO TIME OF DAY. THIS RN ASKED PATIENT TO STOP YELLING OUT. WITHIN 5 MINUTES PATIENT IS YELLING OUT "JOANNE! COME ON PLEASE."
--- NOTE | 2019-04-04 08:25 | NUR ---
DR CRUZ IN TO CHANGE BILAT FEET DRESSINGS NOW. WILL MIREYA PATIENT TO CHAIR AFTER THIS IS COMPLETED.
--- NOTE | 2019-04-04 10:13 | NUR ---
USED MIREYA TO LIFT PATIENT BACK TO BED AFTER SITTING IN CHAIR FOR >1HR. TOLERATED WELL. NC REMAINS IN PLACE. URINE OUTPUT 1100 FOR PAST 4 HOURS.
--- NOTE | 2019-04-04 11:30 | NUR ---
Notified by [facility] they can take pt today. Requesting orders farhana. Dr. Cary. notified.
--- NOTE | 2019-04-04 11:34 | NUR ---
TALKED WITH PT AND HIS REGARDING HIS DX. ABILITY OF HIMSELF TO CARE FOR SELF. STATES SHE IS GETTING AND WORKING ON LEARNING TO WATCH FOR SODIUM CONTENT IN FOODS. SHE STATES THAT SHE PACKED THE ITEMS FROM HOME THAT HE WANTED HER TO BRING--IE SHAVER, SHORTS, AND CHANGES OF CLOTHES. SHE DENIES QUESTIONS AT THIS TIME.
[2019-04-04] MEDS ORDERED: AMOX TR-K CLV1 EACH PO (12:11)
[2019-04-04] MEDS ORDERED: METOPROLOL SUCC50 MG PO (12:12)
[2019-04-04] MEDS ORDERED: ISOSORBIDE MONO30 MG PO (12:12)
[2019-04-04] MEDS ORDERED: OXYCODONE HCL5 MG PO (12:13)
[2019-04-04] MEDS ORDERED: TYLENOL EXTRA500 MG PO (12:13)
[2019-04-04] MEDS ORDERED: TRAZODONE HCL50 MG PO (12:14)
[2019-04-04] MEDS ORDERED: TORSEMIDE20 MG PO (12:14)
[2019-04-04] MEDS ORDERED: LANTUS SOL100 UNIT/1 SUB-Q (12:14)
[2019-04-04] MEDS ORDERED: HUMALOG100 UNITS/ SUB-Q (12:16)
[2019-04-04] MEDS ORDERED: LIDOCAINE1 EACH TD (12:18)
--- NOTE | 2019-04-04 12:37 | NUR ---
Orders, PASSR, notes, DC summary, H&P and rx faxed to [facility]. Chart taken and placed at nurses station. Notified at 1313 orders are cleared and transportation from [facility] will pick pt up in 30-40 min. Updated pt. and . states she is going to go home. Pt ready for dc. Notified by charge nurse, ELLIOT Gaviria notified Dr. Villanueva of pt's admission to [facility]. GEC and chart for SNF faxed to [facility] to [facility] in case pt needs further payment post 20 day admission from medicare.
--- NOTE | 2019-04-04 13:43 | NUR ---
PT TO BE DISCHARGED TO [facility]. IV REMOVED. MONSIVAIS BAG EMPTIED. 1450 ORANGE URINE OUTPUT. URINE WAS YELLOW AT 1000. GETTING PATIENT DRESSED NOW AND READY FOR TRANSPORT TO [facility].
--- NOTE | 2019-04-04 14:51 | NUR ---
PT OFF FLOOR WITH JULIA, TRANSPORTER, AT 1450. SENT WITH O2 TANK FOR TRANSPORT.
--- NOTE | 2019-04-04 19:27 | EKG ---
[facility] [address] [place], [place] [address] Signed Normal sinus rhythm Normal ECG When compared with ECG of 30-MAR-2019 11:26, No significant change was found Confirmed by CLIFTON VASQUEZ MD ([id number]) on 04/04/2019 7:27:03 PM Electronically Signed By: CLIFTON VASQUEZ MD 04/04/19 1927 PATIENT NAME: SAROJ AMEZQUITA Electrocardiogram DATE OF : 49 PHYSICIAN: CLIFTON VASQUEZ MD REPORT #: [id number] REPORT IS CONFIDENTIAL AND NOT TO BE RELEASED WITHOUT AUTHORIZATION
== END 2019-04-04 14:50 | DRG 871 ==
LOC: ED 09:43 → CCU 15:00 → MS 15:00 → CCU 15:50 → MS 03-31 11:30
PROVIDERS: ADMIT Internal Medicine
PROC: 5A09357 Assistance with Respiratory Ventilation, Less than 24 Consecutive Hours, Continuous Positive Airway Pressure (ICD-10-PCS; principal; 2019-03-28)
DX: A40.1 Sepsis due to streptococcus, group B (principal); R65.21 Severe sepsis with septic shock; I50.23 Acute on chronic systolic (congestive) heart failure; J96.01 Acute respiratory failure with hypoxia; I21.A1 Myocardial infarction type 2; I69.354 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cting left non-dominant side; N17.9 Acute kidney failure, unspecified; E87.1 Hypo-osmolality and hyponatremia; L97.423 Non-pressure chronic ulcer of left heel and midfoot with necrosis of muscle; L97.413 Non-pressure chronic ulcer of right heel and midfoot with necrosis of muscle; L97.812 Non-pressure chronic ulcer of other part of right lower leg with fat layer exposed; I11.0 Hypertensive heart disease with heart failure; E11.51 Type 2 diabetes mellitus with diabetic peripheral angiopathy without gangrene; E11.42 Type 2 diabetes mellitus with diabetic polyneuropathy; K21.9 Gastro-esophageal reflux disease without esophagitis; G89.29 Other chronic pain; M54.5 Low back pain; E11.621 Type 2 diabetes mellitus with foot ulcer; D50.9 Iron deficiency anemia, unspecified; N14.1 Nephropathy induced by other drugs, medicaments and biological substances; T50.8X5A Adverse effect of diagnostic agents, initial encounter; Y92.239 Unspecified place in hospital as the place of occurrence of the external cause; Z74.01 Bed confinement status; Z87.820 Personal history of traumatic brain injury; Z87.891 Personal history of nicotine dependence; Z79.82 Long term (current) use of aspirin; Z79.4 Long term (current) use of insulin; Z79.899 Other long term (current) drug therapy
CPT/HCPCS: 36415; 36600; 71045; 71260; 80048; 80053; 80061; 80069; 80202; 81001; 82803; 83036; 83605; 83735; 83880; 84100; 84484; 85025; 85379; 86140; 86850; 86900; 86901; 86920; 87040; 87077; 87186; 87502; 93005; 93010; 93306; 94640; 94660; 94760; 94762; 97110; 97163; 97167; 97535; 99285-25; C9113; J0692; J0696; J1650; J1815; J1940; J2270; J2405; J3010; J3370; J7060; Q9967

== ENCOUNTER → 2019-04-05 | Emergency (ER) | payer OTHER, MEDICARE ==
[~2019-04-05] VITALS: Ht 177.8 cm; Wt 114.0 kg
[~2019-04-05] MED LIST changes: +AMOX TR-K CLV1 EACH PO; +CLEOCIN HCL300 MG PO; +CYMBALTA60 MG PO; +ISOSORBIDE MONO30 MG PO; +LIDOCAINE1 EACH TD; +METOPROLOL SUCC50 MG PO; +TORSEMIDE20 MG PO; +TRAZODONE HCL50 MG PO; +TYLENOL EXTRA500 MG PO; +VITAMIN D325 MC1 PO
--- OUTSIDE RECORDS SUMMARY | ~2019-04-05 | XMS | Encounter Summary ---
Demographics + + + | Address | [address] | | | [place] [address] | + + + | Home Phone | | + + + | Preferred Language | Unknown | + + + | Marital Status | | + + + | Yazidism Affiliation | [id number] | + + + | Race | Unknown | + + + | Ethnic Group | Unknown | + + + Author + + + | Author | [facility] | | | and [place] | + + + | Organization | [facility] | | | and [place] | + + + | Address | Unknown | + + + | Phone | Unavailable | + + + Support + + + + + | Name | Relationship | Address | Phone | + + + + + | Jessica Shepard | ECON | [address] | | | | | [place] | | | | | [phone] | | + + + + + | Bel Solis | ECON | Unknown | | + + + + + | José Shepard | ECON | [place] | | | | | [phone] | | + + + + + | Jessica Shepard | ECON | Unknown | | + + + + + Care Team Providers + +------+ + | Care Avionics Supervisor Name | Role | Phone | + +------+ + | Dian Lr NP | PCP | | + +------+ + Encounter Details +--------+ + + + + | Date | Type | Department | Care Team | Description | +--------+ + + + + | 05/14/ | Hospital | [facility] | Marlin Mckeon | Received intravenous | | 2017 - | Encounter | [facility] | MD [place] [address] | tissue plasminogen | | | | CARE [address]LO[phone] [place] | activator (tPA) in | | 05/19/ | | [address] | [id number] | emergency | | 2017 | | [facility] [place] | | department; Acute | | | | [address] | | left hemiparesis | | | | [phone] | | ([facility]); 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 | | | | | | with hyperglycemia, | | | | | | with long-term | | | | | | current use of | | | | | | insulin ([facility]); | | | | | | Ischemic stroke | | | | | | diagnosed during | | | | | | current admission | | | | | | ([facility]); 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, with | | | | | | long-term current | | | | | | use of insulin | | | | | | ([facility]); Moderate | | | | | | protein-calorie | | | | | | malnutrition ([facility]); | | | | | | Gastroesophageal | | | | | | reflux disease | | | | | | without esophagitis; | | | | | | Hypokalemia; | | | | | | Essential | | | | | | hypertension, benign | +--------+ + + + + Social History + +-------+ +--------+------+ | Tobacco Use | Types | Packs/Day | Years | Date | | | | | Used | | + +-------+ +--------+------+ | Never Assessed | | | | | + +-------+ +--------+------+ + + + | Sex Assigned at [...] + + documented as of this encounter Last Filed Vital Signs + + + + + | Vital Sign | Reading | Time Taken | Comments | + + + + + | Blood Pressure | 121/65 | 05/19/2016 11:32 AM | | | | | PST | | + + + + + | Pulse | 79 | 05/19/2016 11:32 AM | | | | | PST | | + + + + + | Temperature | 36.7 C (98.1 F) | 05/19/2016 11:32 AM | | | | | PST | | + + + + + | Respiratory Rate | 18 | 05/19/2016 11:32 AM | | | | | PST | | + + + + + | Oxygen Saturation | - | - | | + + + + + | Inhaled Oxygen | - | - | | | Concentration | | | | + + + + + | Weight | 85 kg (187 lb 6.2 | 05/19/2016 11:32 AM | | | | oz) | PST | | + + + + + | Height | 180.3 cm (5' 11") | 05/19/2016 11:32 AM | | | | | PST | | + + + + + | Body Mass Index | 26.14 | 05/19/2016 11:32 AM | | | | | PST | | + + + + + documented in this encounter Discharge Summaries Jeff Corley DO - 05/19/2016 10:50 AM PST Discharge Summaries by Jeff Corley DO at 05/19/16 1050 Author: Jeff Corley DO Service: Hospitalist Author Type: Physician Filed: 05/19/16 1054 Date of Service: 05/19/16 105 Status: Signed Shale Miner: Jeff Corley DO (Physician) [facility] Service: Hospitalist Discharge Summary Date of Admission: 05/14/2016 Date of Discharge: 05/19/2016 Discharge Provider: Jeff Corley DO Treatment Team: Consulting Physician: Wing Nina Alicia MD Consulting Physician: Angelica Bernardo MD Admitting Provider: Marlin Mckeon MD Discharge Diagnoses: Principal Problem: Ischemic stroke diagnosed during current admission (HCC) Active Problems: Received intravenous tissue plasminogen activator (tPA) in emergency department Acute left hemiparesis (HCC) Type 2 diabetes mellitus with hyperglycemia, with long-term current use of insulin (HCC) Type 2 diabetes mellitus with diabetic neuropathy, with long-term current use of insulin (HCC) Moderate protein-calorie malnutrition (HCC) GERD (gastroesophageal reflux disease) Hypokalemia Essential hypertension, benign Resolved Problems: * No resolved hospital problems. * Admitted for Acute CVA Given tPA, monitored in ICU, neuro stable. Given aspirin, statin, continue same going forwa rd. BP has been in normal range, not on antihypertensives here or at home. Therapies working with patient, now planning for patient to go to SNF. May need to follow with vascular surgery as an out patient for bilateral asymptomatic ICA s tenosis. Should also be evaluated in outpatient setting with 30-day Holter monitor - no afib noted h ere on telemetry but he gives a vague possible history in distant past. He has DM2 poorly controlled Patient admits poor control at home and resolves to do better. Long-acting insulin was redu sharyn from his reported home dose - I recommend reducing the Lantus to 20 units bid and monito ring blood glucose response depending on his oral intake. He was diagnosed with Moderate protein-calorie malnutrition Improve nutritional status going forward working with outpatient providers. DISCHARGE EXAM Vital Signs: BP 90/52 mmHg | Pulse 86 | Temp(Src) 97.8 F (36.6 C) (Oral) | Resp 18 | Ht 1.803 m (5' 11") | Wt 85 kg (187 lb 6.3 oz) | BMI 26.15 kg/m2 | SpO2 96% Physical Exam NAD AOx3 HENT - MMM, conjunctivae normal Heart - RRR no murmur, no JVD, normal radial / DP pulses B/L Lungs - CTAB/L no WRR, good effort Abd - SNTND +BSx4 Ext - no tenderness or edema Skin - dry no erythema Disposition: [facility] Condition: Stable Code Status: Full Code Discharge Instructions Referral to Speech Therapy Referral Priority: Routine Referral Type: Speech Therapy Referral Reason: Specialty Services Required Requested Specialty: Speech Pathology Number of Visits Requested: 1 Referral to Physical Therapy Referral Priority: Routine Referral Type: Physical Medicine Referral Reason: Specialty Services Required Requested Specialty: Physical Therapy Number of Visits Requested: 1 Referral to Occupational Therapy Referral Priority: Routine Referral Type: Occupational Therapy Referral Reason: Specialty Services Required Requested Specialty: Occupational Therapy Number of Visits Requested: 1 Diet Diabetic Scheduling Instructions: Pureed, nectar thick liquids Activity as Tolerated Follow up: Saurabh Fritz, DO [address] [facility] [address] [place] [address] Medication List START taking these medications atorvastatin 40 MG tablet QTY: 30 tablet Refills: 0 Commonly known as: LIPITOR Take 1 tablet by mouth nightly. CHANGE how you take these medications insulin glargine 100 UNIT/ML injection QTY: 15 mL Refills: 12 Commonly known as: LANTUS Inject 20 Units into the skin 2 (two) times daily. What changed: how much to take CONTINUE taking these medications aspirin 325 MG tablet Refills: 0 Calcium Carbonate-Vitamin D 600-200 MG-UNIT Caps Refills: 0 chlorpheniramine 4 MG tablet Refills: 0 Commonly known as: CHLOR-TRIMETON cholecalciferol 1000 UNITS tablet Refills: 0 Commonly known as: VITAMIN D-3 docusate sodium 250 MG capsule Refills: 0 Commonly known as: COLACE gabapentin 400 MG capsule Refills: 0 Commonly known as: NEURONTIN HYDROcodone-acetaminophen 10-325 MG per tablet QTY: 30 tablet Refills: 0 Commonly known as: NORCO Take 1 tablet by mouth every 6 (six) hours as needed for Pain. pantoprazole 40 MG tablet Refills: 0 Commonly known as: PROTONIX saxagliptin 5 MG tablet Refills: 0 Commonly known as: ONGLYZA senna-docusate 8.6-50 MG per tablet Refills: 0 Commonly known as: PERICOLACE Vitamin D2 2000 UNITS Tabs Refills: 0 Where to Get Your Medications You can get these medications from any pharmacy Bring a paper prescription for each of these medications - atorvastatin 40 MG tablet - HYDROcodone-acetaminophen 10-325 MG per tablet Information about where to get these medications is not yet available ! Ask your nurse or doctor about these medications - insulin glargine 100 UNIT/ML injection Discharge took ~35 minutes, to include final examination, discussion of admission, and prep aration of prescriptions, instructions for on-going care, follow-up and documentation of dis charge summary. Jeff Corley DO 05/19/2016 10:50 AM documented in this enc ounter Progress Notes Conversion Transaction, Provider Unknown - 05/19/2016 12:31 PM PSTFormatting of this note m ight be different from the original. Nurse Progress Note by Sandra Cedillo RN at 05/19/16 1231 Author: Sandra Cedillo RN Service: (none) Author Type: Registered Nurse Filed: 05/19/16 1233 Date of Service: 05/19/16 1231 Status: Signed Shale Miner: Sandra Cedillo RN (Registered Nurse) Report given to ELLIOT Márquez at [facility]. Pt aware of transfer plan. Facility van to pick pt up at 1300. onver elder Transaction, Provider Unknown - 05/19/2016 11:41 AM PST Case Management by Lisa Hogan RN at 05/19/16 1141 Author: Lisa Hogan RN Service: (none) Author Type: Registered Nurse Filed: 05/19/16 1142 Date of Service: 05/19/16 1141 Status: Signed Shale Miner: Lisa Hogan RN (Registered Nurse) 05/19/16 1128 Anticipated Disposition Facility Type assisted facility Discharge Appointment Time 1300 Medicare Important Message (ROS) Given Assisted Facility Other (comment) ([facility]) Disposition: [facility] Transportation: W/C van provided by facility All orders, signed AVS, and prescriptions have been faxed All DC paperwork completed Patient and family in agreement with discharge plan Medicare important message (Given or N/A): yes Tc to spouse Jessica who agrees with d/c plan to [facility]. Negar onver elder Transaction, Provider Unknown - 05/19/2016 11:40 AM PST Therapy Progress Note by Theresa Gonzales PT at 05/19/16 1140 Author: Theresa Gonzales PT Service: (none) Author Type: Physical Therapist Filed: 05/19/16 1140 Date of Service: 05/19/16 1140 Status: Signed Shale Miner: Theresa Gonzales PT (Physical Therapist) 05/19/16 1139 PT Last Visit PT Received On 05/19/16 Reason for Treatment Stroke Requires PT Follow Up Other (comment) Other Comments Comments Attempted to tx pt today, but pt states he is leaving at 1300 and doesn't want to do any therapy at this time. He states he's tired and wants to wait until he gets to the SNF . onver elder Transaction, Provider Unknown - 05/19/2016 11:02 AM PST Case Management by HARIS Lemon at 05/19/16 1102 Author: HARIS Lemon Service: (none) Author Type: Sports Medicine Specialist Filed: 05/19/16 1114 Date of Service: 05/19/16 1102 Status: Signed Shale Miner: HARIS Lemon (Sports Medicine Specialist) 05/19/16 1100 Discharge Planning Evaluation Admitting Diagnosis CVA, TPA given Anticipated Disposition Facility Type assisted facility Assisted Facility Other (comment) ([facility]) SCREW MACHINE TENDER p/c Cheryl Bashir [facility] Coordinator, states she received phone call from [facility], asking for authorization. SCREW MACHINE TENDER assisted Pt and Pt (Jessica Shepard [phone]) regarding VA GEC form, assisted with form and faxed to [facility] Coordinator - Cheryl Bashir [phone] ext. [phone]. During filli ng out GEC form, Pt stated "We wanted [facility] over [facility], but we were told [facility] was denied by [place]." SCREW MACHINE TENDER provided choice of accepting facili ties. SCREW MACHINE TENDER p/c Carlos with [facility] states they will accept Pt, they are VA contracted, if Pt choice. SCREW MACHINE TENDER met with Negar ZARATE regarding the discrepancy of information about Pt choice. SCREW MACHINE TENDER with [facility] met with Pt and Pt (Jessica Shepard) regarding choice, after lengthy discussion, they went back and forth regarding facilities, Pt finally chose [facility]. DCP: [facility] NAOMY GALAN, Sports Medicine Specialist [phone] cell onver elder Transaction, Provider Unknown - 05/19/2016 8:06 AM PST Case Management by Lisa Hogan RN at 05/19/16 0806 Author: Lisa Hogan RN Service: (none) Author Type: Registered Nurse Filed: 05/19/162 Date of Service: 05/19/16805 Status: Addendum Shale Miner: Lisa Hogan RN (Registered Nurse) Related Notes: Original Note by Lisa Hogan RN (Registered Nurse) filed at 05/19/16 082 1 0800:Tc to Carlos at [facility]/[phone] re VA benefits and acceptance. Tc to Jessica, she states she rather have pt go to [facility] and not [facility]. Went to meet with pt and he spoke to Jessica over the phone and agrees with going to [facility]. Tc to Jimmy at [facility], [facility]. 1030: per Jimmy, they can transport pt today at 1300 via w/c van. Jimmy states they are VA contracted and pt does not have to move to another [place] facility after the 20 days of medicar e have . Pt can be transitioned to VA on the if the [facility] paperwork is submitt ed now to the VA. Notified pt and spouse Jessica as this was their concern. SCREW MACHINE TENDER Naomy was given referral to assist in completing the GE process. Faxed PT/MD notes to [facility] coordinator per her request. Notified primary RN and Dr Corley about d/c. Negar onver elder Transaction, Provider Unknown - 05/19/2016 5:25 AM PST Nurse Progress Note by Hero You RN at 05/19/16524 Author: Hero You RN Service: (none) Author Type: Registered Nurse Filed: 05/19/16524 Date of Service: 05/19/16524 Status: Signed Shale Miner: Hero You RN (Registered Nurse) No acute changes from previous end of shift report. Will continue monitoring. Hero You RN 05/19/2016 onver elder Transaction, Provider Unknown - 05/18/2016 6:32 PM PST Nurse Progress Note by Sandra Cedillo RN at 05/18/161831 Author: Sandra Cedillo RN Service: (none) Author Type: Registered Nurse Filed: 05/18/161833 Date of Service: 05/18/161831 Status: Signed Shale Miner: Sandra Cedillo RN (Registered Nurse) Pt had a good day. Stated he's looking forward to getting better. Slight improve in LLE n oted. L arm remains flaccid. Using call light appropriately. Vital signs stable. Bed alarm remains activated. Jeff Crockett DO - 05/18/2016 12:52 PM PSTFormatting of this note might be different from the ramiro ginal. Progress Notes by Jeff Corley DO at 05/18/16 1252 Author: Jeff Corley DO Service: Hospitalist Author Type: Physician Filed: 05/18/16 1256 Date of Service: 05/18/16 1252 Status: Signed Shale Miner: Jeff Corley DO (Physician) PROGRESS NOTE 05/18/2016 for Reagan Shepard on the hospitalist service. ASSESSMENT & PLAN Acute CVA S/p tPA, monitored in ICU, neuro stable. Continue aspirin, statin. BP has been in normal range, not an antihypertensives here or at home. Therapies working with patient, now planning for patient to go to SNF once he is accepted t o one contracted with VA. May need to follow with vascular surgery as an out patient for bilateral asymptomatic ICA s tenosis. Will also need 30-day Holter monitor. DM2 Patient admits poor control at home and resolves to do better. Continue insulins as ordered for now. Moderate protein-calorie malnutrition Improve nutritional status in the setting of DM2. Hypokalemia Improved. Problem list: Principal Problem: Ischemic stroke diagnosed during current admission ([facility]) Active Problems: Received intravenous tissue plasminogen activator (tPA) in emergency department Acute left hemiparesis ([facility]) Type 2 diabetes mellitus with hyperglycemia, with long-term current use of insulin ([facility]) Type 2 diabetes mellitus with diabetic neuropathy, with long-term current use of insulin ([facility]) Moderate protein-calorie malnutrition (HCC) GERD (gastroesophageal reflux disease) Hypokalemia Essential hypertension, benign Length of stay: 4 days DVT prophylaxis: enox Code status: full code Disposition: inpatient SUBJECTIVE Patient seen/examined with rounding team, lying in bed, had an extended conversation with c ase concert manager about which SNF's/towns he liked and which he didn't, no medical complaints at t his time. OBJECTIVE Temp: [97.4 F (36.3 C)-98.2 F (36.8 C)] 98.2 F (36.8 C) (05/18 1136) BP: (107-150)/(66-79) 107/66 mmHg (05/18 1136) Heart Rate: [79-86] 83 (05/18 1136) Resp: [18-20] 20 (05/18 1136) SpO2: [92 %-96 %] 96 % (05/18 1136) Weight: [85.7 kg (188 lb 15 oz)] 85.7 kg (188 lb 15 oz) (05/188) Physical exam: NAD AOx3 HENT - MMM, conjunctivae normal Heart - RRR no murmur, no JVD, normal radial / DP pulses B/L Lungs - CTAB/L no WRR, good effort Abd - SNTND +BSx4 Ext - no tenderness or edema Skin - dry no erythema CBC: Lab Results Component Value Date WBC 10.55 05/18/2016 RBC 4.96 05/18/2016 HGB 14.1 05/18/2016 HCT 40.8 05/18/2016 MCV 82.3 05/18/2016 MCH 28.5 05/18/2016 MCHC 34.6 05/18/2016 RDW 42.0 05/18/2016 PLT 219 05/18/2016 MPV 8.6 05/18/2016 DIFFTYPE AUTOMATED 05/18/2016 BMP: Lab Results Component Value Date NA 139 05/18/2016 K 4.1 05/18/2016 CL 104 05/18/2016 CO2 27 05/18/2016 ANIONGAP 12 05/18/2016 GLUF 143* 05/18/2016 BUN 9 05/18/2016 CREATININE 0.6* 05/18/2016 BCR 15 05/18/2016 CA 8.6 05/18/2016 EGFR >60 05/18/2016 MEDICATIONS aspirin 325 mg Oral Daily with breakfast Or aspirin 300 mg Rectal Daily with breakfast atorvastatin 80 mg Oral Nightly docusate sodium 100 mg Oral BID Or docusate 100 mg Per OG Tube BID enoxaparin 40 mg Subcutaneous Q24H gabapentin 1,200 mg Oral TID insulin detemir 16 Units Subcutaneous BID insulin lispro (human) 2-8 Units Subcutaneous Nightly insulin lispro (human) 4-16 Units Subcutaneous TID AC insulin lispro (human) 7 Units Subcutaneous TID AC pantoprazole 40 mg Intravenous BID dextrose PRN: acetaminophen OR acetaminophen, dextrose, dextrose, dextrose, diphenhydrAMINE, fentaNYL OR fentaNYL, glucagon, glucagon, labetalol, ondansetron OR ondansetron, sodium chlo ride 0.9 % Signature: Jeff Corley DO 05/18/2016 12:52 PM onversion Transaction , Provider Unknown - 05/18/2016 11:50 AM PST Progress Notes by Jenn Richey RD at 05/18/16 1150 Author: Jenn Richey RD Service: (none) Author Type: Registered Dietitian Filed: 05/18/16 1150 Date of Service: 05/18/16 1150 Status: Signed Shale Miner: Jenn Richey RD (Registered Dietitian) 05/18/16 1057 Subjective Timepoint Follow up Pt c/o In to f/u with pt who reports appetite to be doing well eating everything he gets an d excited diet to be advancing. Reported by Patient Diet Experience Previous Diet / Nutrition Education / Counseling Previous DM diet education in the past. Fluid / Beverage Intake Oral Fluids Amount NT liquids Food Intake Amount of Food Breakfast: 100% of 3 small waffles. Type of Food / Meals Dysphagia Pureed diet Meal / Snack Pattern House meals, pt to order snacks prn. Per flowsheets pt eating 100% of meals over the last 4 days. Nutrition-Focused Physical Findings Digestive System (Mouth to Rectum) CHEMICAL PROCESS EQUIPMENT OPERATOR following for dysphagia Anthropometrics Weight change Wt up 1 kg since admit. Per I/O's pt is fluid positive 3.3 L. Continue to mon itor. Biochemical data, medical tests, and procedures reviewed Biochemical data, medical tests, and procedures reviewed BG (H) 143-294 over the last 24 ho urs. A1c of 14.7- indicating poorly controlled DM, on insulin- CDE following. Recommendations Recommended energy needs Recommend adding DM diet restrictions to dysphagia pureed diet to better control DM. Supplements available prn. Goal is to maintain good po intake of 75-100% of meals 3 times daily. Will continue to follow. Nutritional Risk Nutritional risk Moderate Follow up date 05/23/[address] onver elder Transaction, Provider Unknown - 05/18/2016 11:31 AM PST Case Management by Lisa Hogan RN at 05/18/16 1131 Author: Lisa Hogan RN Service: (none) Author Type: Registered Nurse Filed: 05/19/16 0806 Date of Service: 05/18/16 1131 Status: Addendum Shale Miner: Lisa Hogan RN (Registered Nurse) Related Notes: Original Note by Lisa Hogan RN (Registered Nurse) filed at 05/18/16 154 2 1000: Tc from Shara([phone] ext [phone]) with VA "Gec" program regardign snf placemen t. Per Ly, pt needs to go to a VA contracted snf if he wants the VA to provide for copay after his medicare coverage no longer pays 100%. Ly statesthese are some available VA c ontracted snfs: [facility], [facility], [facility], [facility]. [facility] are not contracted with them. Per Ly, if paperwork(PT/MD notes and GEC form ) is submitted now, they can admit pt to a VA contracted snf under VA benefits. Informed Salo wang will discuss with pt and spouse Jessica. Per email from Sheila with [facility], pt declined for [facility]. 1130:Tc to Jinny[facility], she states pt slot shift manager nurse's note, pt has been restless an d construction sales representative light continously and on IV fentanyl, she is not sure she has the man power to acc ept pt. 1200: Tc to spouse Jessica, , [facility] regarding snf placement. Met with pt regarding snf and VA benefits. Pt states he will discuss with spouse, but would consider going to [facility]. Sent e-referrals. Pt states Jessica will be here this evening and would like to discuss with CM options. Informed pt [facility]) has accepted pt but they are not VA contracted. 1300: per rounding with pt, he wants referral sent to [facility] too. Referral sent. Referral sent to HARIS Nichols to assist with "GEC" paperwork for the VA 1500: Tc to Carlos with [facility]([phone]), he thinks pt can be accepted when medically roseann dy, but first have to review pt's VA benefits to make sure rehab is covered. Tc to Jessica again,([phone]) left [facility] about [facility]. Attempted to call Shonda reilly at work,[phone], busy signal. 1530: per Jimmy at [facility], they can accept pt when he is medically ready and if he wants to go there. Notified pt Dunia friedman Transaction, Provider Unknown - 05/18/2016 10:37 AM PST Progress Notes by Khadra Osman RD, DANNY at 05/18/16 1037 Author: Khadra Osman RD, CDE Service: (none) Author Type: Subscription Clerk Filed: 05/18/16 1044 Date of Service: 05/18/16 1037 Status: Signed Shale Miner: Khadra Osman RD, CDE (Subscription Clerk) Met with pt. Reports he's had diabetes for 6 years. He gets all medications through the [facility] for his diabetes. States his of 49 years also has insulin dependent diabetes. At [facility] he was prescribed: 50 units of Lantus at bedtime, 18 units of Novolog with each meal. S tates he wasn't taking the Novolog insulin "at all" and was taking the Lantus about 2-3 time s a week. He was eating what he wanted and not following a diet. Reports he has a glucometer at home - he was checking his blood sugar about 2x a month - it was always over 300. States his is very faithful in following a diet and taking her i nsulin and has been telling him "it will catch up with you". States he is now very motivated to take insulin, follow a diet and check his blood sugar. Reports he's been through [employer] es education classes two times - but he "didn't take it seriously". States he is very motivated to work with physical therapy to get stronger and get back home . Reports his appetite is "good". Elevated blood sugars here. 20 units of correctional scale insulin yesterday. Recommend: Increase to 10 units of Humalog routine with meals. Will follow for blood sugars. Per pt has all supplies needed to manage his blood sugars at home and [facility]. Khadra Osman RD, MPH, CDE, Subscription Clerk 05/18/2016 10:43 AM onver elder Transaction, Provider Unknown - 05/18/2016 4:36 AM PST Nurse Progress Note by Hero You RN at 05/18/16435 Author: Hero You RN Service: (none) Author Type: Registered Nurse Filed: 05/18/167 Date of Service: 05/18/16435 Status: Signed Shale Miner: Hero You RN (Registered Nurse) Pts VSS, Pt c/o back pain, IV fentanyl given x1. Pt calling constantly during shift to be r epositioned. No other changes at this time. Will continue monitoring. Hero You RN 017 onver elder Transaction, Provider Unknown - 05/17/2016 5:00 PM PST Nurse Progress Note by Sandra Cedillo RN at 05/17/161699 Author: Sandra Cedillo RN Service: (none) Author Type: Registered Nurse Filed: 05/17/161701 Date of Service: 05/17/161699 Status: Signed Shale Miner: Sandra Cedillo RN (Registered Nurse) Pt anxious this shift, wants staff to get him back and forth between the recliner frequentl y. Pt 2 person max assist, L side flaccid. Blood sugar elevated in the high 200's. No BM t his shift. Vital signs stable. Bed alarm remains activated. onver elder Transaction, Provider Unknown - 05/17/2016 3:00 PM PST Therapy Progress Note by Cheryl Rodney PT at 05/17/16 1500 Author: Cheryl Rodney PT Service: (none) Author Type: Physical Therapist Filed: 05/17/16 161 Date of Service: 05/17/16 1500 Status: Signed Shale Miner: Cheryl Rondey PT (Physical Therapist) 05/17/16 1500 PT Last Visit PT Received On 05/17/16 Reason for Treatment Stroke Requires PT Follow Up Yes Follow up PT Only? Yes (complexity) Assistance Required 2 person Suction Plate Roller Hand Needed No Precautions UE Precaution(s) LUE Precautions/WB LUE Sling (d/t L UE flaccidity - has good shoulder shrug, however) Other Precautions high fall risk, L hemiparesis Other Comments Comments Pt found supine/R sidelying in bed when PT arrived - pt was curled up along R side of bed against bed rail. Pt was initially asleep, but easily arousable and eager to partici perales in therapy this PM. PT re-assessed strength of B UEs/LEs -difficult to fully assess as pt appearing to be somewhat self-limiting and stating that he is unable to move his L UE/LE before even attempting. Pt does demonstrate good L Upper trap and triceps contraction, but a ppearing mostly flaccid throughout rest of L UE. Pt with good trace contraction throughout L hip flexors and quads and with 2 to 2+/5 strength of the hip extensors. Pt currently requir es modA to roll to L side and maxA to roll to R side and arise to EOB. Pt able to maintain s tatic sitting balance well for short periods at a time (about 60 seconds). Attempted sit to stand transfer at bedside, pt needing 2pA to fully arise to standing at beside. Pt able to t ransfer from bed to recliner, 2nd person needed for assist with pivoting to recliner. Once i n recliner, pt positioned in midline, utilizing pillow under L axilla to assist with maintai martell midline position while up in chair. PT/PT tech placed sling for use of ceiling lift for transfer back to bed - RN/SAP INTEGRATION ARCHITECT aware of pt positioning/abilities and need for ceiling lift f or back to bed. Pt reporting feeling less stiff while up in recliner and appreciative for th erapy this PM. Pt resting in recliner post activity, all needs met/within reach when PT left . Cognition Overall Cognitive Status WFL Orientation Level Oriented Bed Mobility Rolling Moderate assist;To left;Maximal assist;To right Sidelying to Sit Max assist (BLEs OOB & trunk to upright) Transfers Sit to/from Stand Maximal assist (to arise AND lower);x 2 person (PT blocking L knee d/t buckle risk) Bed to/from Chair Maximal assist (to arise AND lower);x 2 person (2nd person assist with pivoting toward chair) Mobility Ambulation Assistance Not performed;Safety concerns Balance Balance Yes Static Sitting Balance Static Sitting-Balance Support Right upper extremity support;Left upper extremity support;F eet supported Static Sitting-Level of Assistance Minimal assist;Standby assist;Attains midline;Doesn't ma intain midline;Leans R Static Sitting-Comment/Duration x4-5 minutes in total. Pt able to maintain sitting balance for short bouts at a time with SBA - when pt fatigues, he tends to go down to R forearm. Static Standing Balance Static Standing-Balance Support Right upper extremity support;Left upper extremity support; Trunk support Static Standing-Level of Assistance Maximal assist;Attains midline;Maintains midline Static Standing-Comment/Duration x1 minute Therapeutic Exercises Therapeutic Exercises PROM Left PROM Left Entire LE PROM Comments x15 reps - pt reporting stiffness throughout LE prior to session, reporting g ood relief of symptoms with PROM. Modalities Other Therapy Education on mobility progression and concepts of neuroplasticity in stroke r ecovery. Activity Tolerance Activity Tolerance Patient limited by fatigue Nurse Made Aware Yes Safety Devices Safety Devices in Place (Call light in reach) Restraints Initially in Place No Plan Treatment/Interventions Continue per Primary PT POC Progress Slow progress, decreased activity tolerance Recommendation Recommendations IRF Barriers to Discharge Cognitive Deficits Impacting Functional Kenedy;Self-care Defici ts Impacting Functional [place];Physical Deficits Impacting Functional [place];Malik rological Impairment (see comment) Recommendation Comments Pt demonstrating good motivation to work in therapy- currently pt w ith L hemiparesis and currently requiring maxA x 1-2 for all transfers. Pt eager to particip ate in therapy and likely could tolerate intensity of therapy required for IPR. Jeff Crockett DO - 05/17/2016 12:38 PM PSTFormatting of this note might be different from the ramiro ragsdale. Progress Notes by Jeff Corley DO at 05/17/16 3248 Author: Jeff Corley DO Service: Hospitalist Author Type: Physician Filed: 05/17/16 1600 Date of Service: 05/17/16 1238 Status: Addendum Shale Miner: Jeff Corley DO (Physician) Related Notes: Original Note by Jeff Corley DO (Physician) filed at 05/17/16 5512 PROGRESS NOTE 05/17/2016 for Reagan Sehpard on the hospitalist service. ASSESSMENT & PLAN Acute CVA S/p tPA, monitored in ICU, neuro stable. Continue aspirin, statin. BP has been in normal range, not an antihypertensives here or at home. Therapies working with patient, hope to transfer to [facility] pending insurance authorization (me mccann). May need to follow with vascular surgery as an out patient for bilateral asymptomatic ICA s tenosis. Will also need 30-day Holter monitor. Bubble study done today as well, check for results (pending). DM2 Patient admits poor control at home and resolves to do better (drank a 6-pack of Mountain D ew on the day of the stroke). Continue insulins as ordered for now. Moderate protein-calorie malnutrition Improve nutritional status in the setting of DM2. Hypokalemia Improved. Problem list: Principal Problem: Ischemic stroke diagnosed during current admission ([facility]) Active Problems: Received intravenous tissue plasminogen activator (tPA) in emergency department Acute left hemiparesis (HCC) Type 2 diabetes mellitus with hyperglycemia, with long-term current use of insulin (HCC) Type 2 diabetes mellitus with diabetic neuropathy, with long-term current use of insulin ([facility]) Moderate protein-calorie malnutrition (HCC) GERD (gastroesophageal reflux disease) Hypokalemia Essential hypertension, benign Length of stay: 3 days DVT prophylaxis: enox Code status: full code Disposition: inpatient SUBJECTIVE Patient seen/examined sitting in bed, feeling well overall, in good spirits, no questions a t this time. OBJECTIVE Temp: [97.6 F (36.4 C)-98.2 F (36.8 C)] 98.2 F (36.8 C) (05/17 114) BP: (113-177)/(60-84) 135/78 mmHg (05/17 114) Heart Rate: [81-87] 87 (05/17 114) Resp: [18-20] 20 (05/17 1148) SpO2: [92 %-99 %] 93 % (05/17 1148) Weight: [78.5 kg (173 lb 1 oz)] 78.5 kg (173 lb 1 oz) (05/17 0152) Physical exam: NAD AOx3 HENT - MMM, conjunctivae normal Heart - RRR no murmur, no JVD, normal radial / DP pulses B/L Lungs - CTAB/L no WRR, good effort Abd - SNTND +BSx4 Ext - no tenderness or edema Skin - dry no erythema CBC: Lab Results Component Value Date WBC 11.20* 05/17/2016 RBC 4.92 05/17/2016 HGB 13.9 05/17/2016 HCT 40.8 05/17/2016 MCV 83.0 05/17/2016 MCH 28.3 05/17/2016 MCHC 34.0 05/17/2016 RDW 42.4 05/17/2016 PLT 215 05/17/2016 MPV 8.5 05/17/2016 DIFFTYPE AUTOMATED 05/17/2016 BMP: Lab Results Component Value Date NA 139 05/17/2016 K 3.9 05/17/2016 CL 103 05/17/2016 CO2 25 05/17/2016 ANIONGAP 15 05/17/2016 GLUF 132* 05/17/2016 BUN 9 05/17/2016 CREATININE 0.5* 05/17/2016 BCR 18 05/17/2016 CA 8.4* 05/17/2016 EGFR >60 05/17/2016 MEDICATIONS aspirin 325 mg Oral Daily with breakfast Or aspirin 300 mg Rectal Daily with breakfast atorvastatin 80 mg Oral Nightly docusate sodium 100 mg Oral BID Or docusate 100 mg Per OG Tube BID enoxaparin 40 mg Subcutaneous Q24H gabapentin 1,200 mg Oral TID insulin detemir 16 Units Subcutaneous BID insulin lispro (human) 2-8 Units Subcutaneous Nightly insulin lispro (human) 4-16 Units Subcutaneous TID AC insulin lispro (human) 7 Units Subcutaneous TID AC pantoprazole 40 mg Intravenous BID dextrose PRN: acetaminophen OR acetaminophen, dextrose, dextrose, dextrose, diphenhydrAMINE, fentaNYL OR fentaNYL, glucagon, glucagon, labetalol, magnesium sulfate OR magnesium sulfate OR magnesium sulfate, ondansetron OR ondansetron, phosphorus OR sodium phosphate IVPB 20 mmol OR sodium phosphate IVPB 45 mmol, potassium OR potassium OR potass ium OR potassium chloride OR potassium chloride OR potassium chloride, sodium ch loride 0.9 % Signature: Jeff Corley DO 05/17/2016 12:38 PM onversion Transaction , Provider Unknown - 05/17/2016 11:44 AM PST Case Management by Lisa Hogan RN at 05/17/16 1144 Author: Lisa Hogan RN Service: (none) Author Type: Registered Nurse Filed: 05/17/16 1307 Date of Service: 05/17/16 1144 Status: Addendum Shale Miner: Lisa Hogan RN (Registered Nurse) Related Notes: Original Note by Lisa Hogan RN (Registered Nurse) filed at 05/17/16 130 3 Per rounding with pt, he is A&O x4. Pending IPR. Sent email to Sheila at [facility] for status. Left VM for PT regarding f/u with pt 1230:Tc to spouse Jessica regarding snf placement in case IPR declines pt. Jessica upset as s he thought "doctor" had told her son yesterday that pt was a good candidate for IPR and was accepted to [facility]. Informed Jessica Alicia has not made decision yet as he is "following pt". Jessica wants referrals sent to [facility] and [facility]. Jessica asks that we dont mention to pt snf placement yet until a decision i s made about IPR. Negar onver elder Transaction, Provider Unknown - 05/17/2016 10:05 AM PST Therapy Progress Note by TOLU Xiao/Parminder at 05/17/16 1005 Author: GABE Xiao Service: (none) Author Type: Occupational Therapist Filed: 05/17/16 1240 Date of Service: 05/17/16 1005 Status: Signed Shale Miner: GABE Xiao (Occupational Therapist) 05/17/16 1005 OT Last Visit OT Received On 05/17/16 Reason for Treatment Stroke Requires OT Follow Up Awaiting tx order OT Eval/Reassessment Date 05/17/16 Assistance Required 2 person Suction Plate Roller Hand Needed No Family/Caregiver Present No Precautions Other Precautions high fall risk, L hemiparesis Other Comments Comments OT eval orders received/verified. Pt willing to participate in OT this AM. Chart r ramon-relevant to OT evaluation: Left sided weakness, s/p IV rtPA with little improvement, due to right bogdan infarction, most likely [id number] in etiology related to uncontrol led DM; multifocal mild to moderate stenoses of both vertebral arteries. 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 Pt tolerated session well. Pt assisted back into recliner after lower body dressing-LUE supported with pillows. Pt may be nefit from further acute skilled OT services to further address ADLs, AE training, transfers , PROM. Additional Activities Additional Activities Comments Pt requiring 2nd person for transfers and ADLs.Pt may benefi t from rehab prior to returning home Activity Tolerance Activity Tolerance Patient limited by fatigue;Patient tolerated treatment well Safety Devices Safety Devices in Place Yes Type of Devices Chair alarm;Call lite in place;RN notified Plan Treatment Interventions ADL retraining;IADL retraining;Functional transfer training;Functio nal dynamic activities;UE strengthening;AROM;PROM;Therapeutic exercises;Endurance training;P atient/Family training;Equipment eval/education;Neuro muscular reeducation;Fine motor coordi nation activities;Compensatory technique education OT Frequency 3-5 x/wk Care Duration (Days) 10 Days Recommendation Recommendation Rehab consult Equipment Recommended Guide Dog Mobility Instructor;Bedside commode;Elastic shoe laces;HHSH OT Ready for Discharge Yes (may benefit from rehab) 05/17/16 1005 Precautions Other Precautions high fall risk, L hemiparesis Home Environment Home Exterior Layout 1-3 steps (1 step) Home Interior Layout Flight one (bdrm/bathroom upstairs) Bathroom Shower/Tub Tub/shower unit;Shower unit with threshold (typically uses tub (but has walk in shower on main level)) Bathroom Equipment Hand-held shower head (modified t/f bench for tub) Home Equipment Walker 4 wheeled;Cane single point;Shower head hand held;[place] long handl ed;Sponge long handled Additional Comments Refer to PT note for PLOF Prior Function Level of K[place] Independent with functional mobility;Independent with ADLs;Independe nt with IADLs;Driving in community Lives With Spouse Receives Help From Family ADL Assistance Independent Home ADL's Independent Employment Retired for age Leisure Hobbies-yes (Comment) (yardwork, outdoor tasks) ADL Where Eating Assessed Supine in bed, HOB elevated Eating Assistance Supervision Eating Deficit Modified diet;Thickened liquids Grooming Assistance Supervision (seated in chair, after s/u) Grooming impacted by Endurance;Safety concerns;Hemiparesis LE Dressing Assistance Dependent;x 2 person Lower body dressing impacted by Endurance;Hemiparesis;Manual dexterity;Safety concerns Toileting Assistance with Device Dependent;Per report Functional Assistance Maximal assist;x 2 person (sit to stand from recliner) Toileting transfer impacted by Hemiparesis;Manual dexterity;Endurance;Safety concerns Additional Comments Pt seated in recliner upon OT arrival. Pt limited by L hemiparesis, req uiring a 2nd person in standing. This OT blocking LLE due to buckle risk. Pt unable to supriya t with donning pants over hips. RN assisted. Pt then returned to recliner Vision-Basic Assessment Current Vision Wears glasses Patient Visual Report (watery L eye) Tracking Able to track stimulus in all quads without difficulty Acuity Other (comment) (able to read whiteboard) Cognition Overall Cognitive Status WFL Orientation Level Oriented Comments mild dysathria Sensation Additional Comments pt reports he is able to feel all light touch in LUE Perception Initiation Appears intact Motor Planning Appears intact Perseveration Not present RUE Assessment RUE Assessment WFL Hand Function Gross Grasp Functional;Impaired Functional Gross Grasp Able to hold objects in dominant hand Impaired Gross Grasp Unable to hold objects in non-dominant hand Coordination Functional;Impaired Assessment Assessment Decreased ADL status;Decreased UE ROM;Decreased UE strength;Decreased endurance; Decreased fine motor control;Decreased self-care trans;Decreased high-level ADLs Prognosis Good Goal Formulation Patient;Family ADL Goals Pt Will Perform UE Dressing With max assist Pt Will Perform LE Dressing With max assist;With adaptive equipment (bed level) LE Dressing Adaptive Equipment Guide Dog Mobility Instructor;Dressing stick Arm Goals Pt Will Tolerate SROM L UE;1 set;10 reps;With good activity tolerance;Without complain/sig n of pain Plan Treatment Interventions ADL retraining;IADL retraining;Functional transfer training;Functio nal dynamic activities;UE strengthening;AROM;PROM;Therapeutic exercises;Endurance training;P atient/Family training;Equipment eval/education;Neuro muscular reeducation;Fine motor coordi nation activities;Compensatory technique education OT Frequency 3-5 x/wk Care Duration (Days) 10 Days Requires OT Follow Up Awaiting tx order Recommendation Recommendation Rehab consult Equipment Recommended Guide Dog Mobility Instructor;Bedside commode;Elastic shoe laces;HHSH OT Ready for Discharge Yes (may benefit from rehab) Education Completed: Education Topic: OT role, ADLs, stroke folder Completed with: Patient Completed by: Verbal Education, Written Material, Demonstration Response to Education: Stated Understanding, Returned Demonstration, Reinforcement Amparo oro for Education Understanding Focus for next session: SROM, ADLs, AE training Follow up OT only? No Barriers to d/c at this time include: L hemiparesis Physical deficits impacting functional independence Self-care deficits impacting functional independence Patient and/or family educated on the following topics: Stroke Recovery: changes caused by stroke, risk factors for stroke, healthy lifestyle to pr event another stroke, stroke: taking medications, feeling tired after stroke, intimacy after stroke Stress: mood swings and depression after a stroke Promotion of a Healthy Lifestyle: preventing recurrent stroke: eating healthy and : getting active Therapeutic Skill Training: Stroke-self care, preparing your home after stroke, fall precau tions Community Networks: caregiver guide to stroke, neurological resource center guide Moderate - [id number] High - 10471 History Expanded review of medical records; additional review of physical, cognitive, or ps ychosocial skills Examination Identification of 5 or more performance deficits Decision Making Presents with comorbidities; significant modification of tasks or assistan ce is needed to complete eval Clinical Decision Making Complexity: Moderate [id number] onver elder Harris Provider Unknown - 05/17/2016 5:44 AM PST Nurse Progress Note by Hero You RN at 05/17/1644 Author: Hero You RN Service: (none) Author Type: Registered Nurse Filed: 05/17/16 0550 Date of Service: 05/17/16543 Status: Signed Shale Miner: Hero You RN (Registered Nurse) Pts VSS, pt denying pain and had multipe loose stools, pt placed on contact enteric per pro tocol. Pt repositioned as needed tonight. No other acute changes from previous end of shift report. Will continue monitoring. Hero You RN 05/17/2016 Dunia friedman Transaction, Provider Unknown - 05/16/2016 4:52 PM PST Nurse Progress Note by Teena Matthew RN at 05/16/161651 Author: Teena Matthew RN Service: (none) Author Type: Registered Nurse Filed: 05/16/161652 Date of Service: 05/16/161651 Status: Addendum Shale Miner: Teena Matthew RN (Registered Nurse) Related Notes: Original Note by Teena Matthew RN (Registered Nurse) filed at 1652 No change from previous assessment. VSS, hourly rounding, call light within reach. Bed alar m set, neuro checks unchanged. Teena Matthew RN Wing Nina Fulton MD - 05/16/2016 3:12 PM PSTFormatting of this note might be different from the orig inal. Progress Notes by Wing Nina Alicia MD at 05/16/161511 Author: Wing Nina Alicia MD Service: Physical Medicine and Rehab Author Type: Physician Filed: 05/16/16 1514 Date of Service: 05/16/161511 Status: Signed Shale Miner: Wing Nina Alicia MD (Physician) Patient seen face-face for followup He has not been seen by therapy today, yet Patient is speaking well. He is on nectar thick liquid with Puree diet BP 110/69 mmHg | Pulse 92 | Temp(Src) 96.3 F (35.7 C) (Oral) | Resp 19 | Ht 1.803 m (5' 11") | Wt 85.3 kg (188 lb 0.8 oz) | BMI 26.24 kg/m2 | SpO2 97% Lung: Clear Cardiac: Regular Abdo: Soft A/P S/p right CVA Will need clarification on his insurance situation WING Nina ALICIA MD 05/16/2016 3:12 PM Admission on 05/14/2016 Component Date Value Ref Range Status SOURCE 05/14/2016 NARES(NOSE) Final MRSA PCR 05/14/2016 NEGATIVE NEGATIVE Final Ventricular Rate 05/14/2016 90 Final Atrial Rate 05/14/2016 90 Final P-R Interval 05/14/2016 158 Final QRS Duration 05/14/2016 82 Final Q-T Interval 05/14/2016 372 Final QTC Calculation (Bezet) 05/14/2016 455 Final Calculated P [place] 05/14/2016 28 Final Calculated R [place] 05/14/2016 -3 Final Calculated T [place] 05/14/2016 38 Final Diagnosis 05/14/2016 Final Value:Normal sinus rhythm Inferior infarct , age undetermined Possible Anterolateral infarct , age undetermined Abnormal ECG No previous ECGs available Confirmed by Aleksandar Dotson ([id number]) on 05/14/2016 11:31:55 PM GLUCOSE,POC SCREEN 05/14/2016 347* 65 - 99 mg/dL Final LV EF 05/14/2016 65 50 - 70 % Final GLUCOSE,POC SCREEN 05/14/2016 273* 65 - 99 mg/dL Final GLUCOSE,POC SCREEN 05/14/2016 382* 65 - 99 mg/dL Final GLUCOSE,POC SCREEN 05/14/2016 243* 65 - 99 mg/dL Final GLUCOSE,POC SCREEN 05/14/2016 251* 65 - 99 mg/dL Final GLUCOSE,POC SCREEN 05/14/2016 202* 65 - 99 mg/dL Final GLUCOSE,POC SCREEN 05/14/2016 113* 65 - 99 mg/dL Final GLUCOSE,POC SCREEN 05/14/2016 119* 65 - 99 mg/dL Final GLUCOSE,POC SCREEN 05/14/2016 237* 65 - 99 mg/dL Final GLUCOSE,POC SCREEN 05/14/2016 251* 65 - 99 mg/dL Final WBC 05/15/2016 14.87* 3.80 - 11.00 K/uL Final RBC 05/15/2016 5.01 4.20 - 5.70 M/uL Final HGB 05/15/2016 14.0 13.2 - 17.0 g/dL Final HCT 05/15/2016 40.8 39.0 - 50.0 % Final MCV 05/15/2016 81.5 80.0 - 100.0 fl Final MCH 05/15/2016 27.9 27.0 - 34.0 pg Final MCHC 05/15/2016 34.2 32.0 - 35.5 g/dL Final RDW SD 05/15/2016 42.0 37 - 53 fl Final PLT 05/15/2016 257 150 - 400 K/uL Final MPV 05/15/2016 8.4 Final DIFF TYPE 05/15/2016 AUTOMATED Final NEUTROPHILS 05/15/2016 72.88 Final LYMPHOCYTES 05/15/2016 17.64 Final MONOCYTES 05/15/2016 8.16 Final EOSINOPHILS 05/15/2016 1.06 Final BASOPHILS 05/15/2016 0.26 Final NEUTROPHILS ABS 05/15/2016 10.84* 1.90 - 7.40 K/uL Final LYMPHOCYTES ABS 05/15/2016 2.62 1.00 - 3.90 K/uL Final MONOCYTES ABS 05/15/2016 1.21* 0.00 - 0.80 K/uL Final EOSINOPHILS ABS 05/15/2016 0.16 0.00 - 0.50 K/uL Final BASOPHILS ABS 05/15/2016 0.04 0.00 - 0.10 K/uL Final SODIUM 05/15/2016 138 135 - 145 mmol/L Final POTASSIUM 05/15/2016 3.3* 3.5 - 4.9 mmol/L Final CHLORIDE 05/15/2016 104 99 - 109 mmol/L Final CO2 05/15/2016 25 23 - 32 mmol/L Final ANION GAP AGAP 05/15/2016 12 5 - 20 mmol/L Final GLUCOSE 05/15/2016 125* 65 - 99 mg/dL Final BUN 05/15/2016 11 8 - 25 mg/dL Final CREATININE 05/15/2016 0.7 0.70 - 1.30 mg/dL Final BUN/CREAT 05/15/2016 16 Final CALCIUM 05/15/2016 8.3* 8.5 - 10.5 mg/dL Final EGFR 05/15/2016 >60 >60 mL/min/1.73m2 Final MAGNESIUM 05/15/2016 1.8 1.7 - 2.4 mg/dL Final PHOSPHORUS 05/15/2016 3.0 2.3 - 4.8 mg/dL Final HEMOGLOBIN A1C 05/15/2016 14.7* 4.0 - 6.0 % Final ESTIMATED AVG GLUCOSE 05/15/2016 375 Final CHOLESTEROL 05/15/2016 108 <200 mg/dL Final Triglycerides 05/15/2016 152* <150 mg/dL Final HDL CHOL 05/15/2016 31* >40 mg/dL Final LDL CALC 05/15/2016 47 <100 mg/dL Final GLUCOSE,POC SCREEN 05/14/2016 135* 65 - 99 mg/dL Final GLUCOSE,POC SCREEN 05/14/2016 181* 65 - 99 mg/dL Final GLUCOSE,POC SCREEN 05/14/2016 225* 65 - 99 mg/dL Final GLUCOSE,POC SCREEN 05/14/2016 109* 65 - 99 mg/dL Final GLUCOSE,POC SCREEN 05/15/2016 137* 65 - 99 mg/dL Final GLUCOSE,POC SCREEN 05/15/2016 152* 65 - 99 mg/dL Final GLUCOSE,POC SCREEN 05/15/2016 140* 65 - 99 mg/dL Final GLUCOSE,POC SCREEN 05/15/2016 118* 65 - 99 mg/dL Final GLUCOSE,POC SCREEN 05/15/2016 137* 65 - 99 mg/dL Final POTASSIUM 05/15/2016 4.2 3.5 - 4.9 mmol/L Final GLUCOSE,POC SCREEN 05/15/2016 192* 65 - 99 mg/dL Final GLUCOSE,POC SCREEN 05/15/2016 263* 65 - 99 mg/dL Final GLUCOSE,POC SCREEN 05/15/2016 244* 65 - 99 mg/dL Final GLUCOSE,POC SCREEN 05/15/2016 291* 65 - 99 mg/dL Final WBC 05/16/2016 12.85* 3.80 - 11.00 K/uL Final RBC 05/16/2016 4.77 4.20 - 5.70 M/uL Final HGB 05/16/2016 13.4 13.2 - 17.0 g/dL Final HCT 05/16/2016 39.1 39.0 - 50.0 % Final MCV 05/16/2016 82.0 80.0 - 100.0 fl Final MCH 05/16/2016 28.0 27.0 - 34.0 pg Final MCHC 05/16/2016 34.1 32.0 - 35.5 g/dL Final RDW SD 05/16/2016 42.9 37 - 53 fl Final PLT 05/16/2016 238 150 - 400 K/uL Final MPV 05/16/2016 8.8 Final DIFF TYPE 05/16/2016 AUTOMATED Final NEUTROPHILS 05/16/2016 68.92 Final LYMPHOCYTES 05/16/2016 18.94 Final MONOCYTES 05/16/2016 10.32 Final EOSINOPHILS 05/16/2016 1.25 Final BASOPHILS 05/16/2016 0.57 Final NEUTROPHILS ABS 05/16/2016 8.86* 1.90 - 7.40 K/uL Final LYMPHOCYTES ABS 05/16/2016 2.44 1.00 - 3.90 K/uL Final MONOCYTES ABS 05/16/2016 1.33* 0.00 - 0.80 K/uL Final EOSINOPHILS ABS 05/16/2016 0.16 0.00 - 0.50 K/uL Final BASOPHILS ABS 05/16/2016 0.07 0.00 - 0.10 K/uL Final MAGNESIUM 05/16/2016 2.2 1.7 - 2.4 mg/dL Final PHOSPHORUS 05/16/2016 4.5 2.3 - 4.8 mg/dL Final SODIUM 05/16/2016 139 135 - 145 mmol/L Final POTASSIUM 05/16/2016 4.2 3.5 - 4.9 mmol/L Final CHLORIDE 05/16/2016 104 99 - 109 mmol/L Final CO2 05/16/2016 25 23 - 32 mmol/L Final ANION GAP AGAP 05/16/2016 14 5 - 20 mmol/L Final GLUCOSE 05/16/2016 236* 65 - 99 mg/dL Final BUN 05/16/2016 9 8 - 25 mg/dL Final CREATININE 05/16/2016 0.7 0.70 - 1.30 mg/dL Final BUN/CREAT 05/16/2016 13 Final CALCIUM 05/16/2016 8.5 8.5 - 10.5 mg/dL Final TOTAL PROTEIN 05/16/2016 5.8* 6.3 - 8.2 g/dL Final Albumin 05/16/2016 2.8* 3.3 - 4.8 g/dL Final GLOBULIN 05/16/2016 3.0 1.3 - 4.9 g/dL Final A/G 05/16/2016 0.9* 1.0 - 2.4 Final TBIL 05/16/2016 1.7* 0.1 - 1.5 mg/dL Final ALK PHOS 05/16/2016 77 35 - 115 U/L Final AST 05/16/2016 18 10 - 45 U/L Final ALT 05/16/2016 15 10 - 65 U/L Final EGFR 05/16/2016 >60 >60 mL/min/1.73m2 Final GLUCOSE,POC SCREEN 05/15/2016 199* 65 - 99 mg/dL Final GLUCOSE,POC SCREEN 05/16/2016 225* 65 - 99 mg/dL Final GLUCOSE,POC SCREEN 05/16/2016 292* 65 - 99 mg/dL Final onversion Transaction, Provider Unknown - 05/16/2016 12:05 PM PSTFormatting of this note might be different from t he original. Case Management by HARIS De La Garza at 05/16/16 1205 Author: HARIS De La Garza Service: (none) Author Type: Lacrosse Coach Filed: 05/16/16 1213 Date of Service: 05/16/16 1205 Status: Signed Shale Miner: HARIS De La Garza (Lacrosse Coach) 05/16/16 1201 Discharge Planning Evaluation Admitting Diagnosis CVA, TPA given Readmission No Living Arrangements Spouse/significant other Support Systems Spouse/significant other Type of Residence Private residence House type House-Split level Steps to enter 10 Bathrooms on 1st Floor 1-Full Independent with ADL's Yes Independent with Mobility Yes;Other (comment) (pt uses a cane at baseline) Home Care Services No Caregiver after Discharge Other (comment) ( [place]) Mental Status Oriented Prior functional status Independent, but having multiple falls and some left-sided weakness over past few weeks. Anticipated Discharge Plan Post Acute Care Needs Other (comment) (TBD) Resources Financial concerns No Transportation issues Yes Prescription Plan Yes Name of Pharmacy [facility] [place] [place] [facility] [place] Previous home health equipment Yes;Comment (Pt uses a cane at baseline) Vascular access device No Ostomy/Drains/Appliances (TBD) Anticipated Disposition Facility Type Other (Comment) Met with patient Reagan Shepard and discussed discharge planning. 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 The patient resides with his in [facility]. The patient was alert and oriented. He said their home is a split-level house with 12 steps up and two steps down. The patient uses a cane for ambulation at baseline. The patient has a Hx of (per chart note): " The patient is a 71 y.o. male with significant past medical hist ory of DM 2 with neuropathy, degenerative disk disease, and TBI who initially presented to [facility] with left facial droop and left-sided weakness. He had an episode of urinary incontinence and fall, EMS called and patient was brought to [facility] ED. " "Patient is also complaining of a 3-week history of intermittent left-sided weakness and fal ls. He uses a cane for ambulation." Patient's PCP is: Patient's insurance: [employer] & Medicare Coverage concerns: no Medication coverage/concerns: no Rx Bedside Delivery: Preferred Pharmacy: [facility] or [facility] resources utilized / needed: TBD Assistance in transportation: Spouse - Jessica Shepard [phone] or work [phone] Identification of any specific education / training: no Barriers to Discharge / Alternative housing needed: TBD Anticipated DCP: Home DWIGHT De La Garza John Hill MD - 05/16/2016 8:26 AM PST Progress Notes by John Murdock MD at 05/16/16825 Author: John Murdock MD Service: (none) Author Type: Physician Filed: 05/16/16 1131 Date of Service: 05/16/16825 Status: Addendum Shale Miner: John Murdock MD (Physician) Related Notes: Original Note by John Murdock MD (Physician) filed at 05/16/16 1108 [facility] Service: Hospitalist Progress Note Pt: Reagan Shepard AGE/SEX: 71 y.o. male : 1945 ROOM: [facility]/7124-1 REQUESTING PROVIDER: John Murdock MD TODAY'S DATE: 05/16/2016 Hospital Day: LOS: 2 days + past medical history of DM 2 with neuropathy, DDD and TBI Transfer from [facility] A fter seen there with left facial droop and left-sided weakness.,episode of urinary incontin ence and fall, .Acute infarction in the right bogdan, CT head unremarkablMRI e, no ICH. As N IHSS score of 14 TPA Was liza marlowfer to [facility] for further care SUBJECTIVE aprt from witness fall last night No impacted controlled headache No dizziness Scheduled Medications aspirin 325 mg Oral Daily with breakfast Or aspirin 300 mg Rectal Daily with breakfast atorvastatin 80 mg Oral Nightly docusate sodium 100 mg Oral BID Or docusate 100 mg Per OG Tube BID enoxaparin 40 mg Subcutaneous Q24H gabapentin 1,200 mg Oral TID insulin detemir 12 Units Subcutaneous BID insulin lispro (human) 2-8 Units Subcutaneous Nightly insulin lispro (human) 4-16 Units Subcutaneous TID AC insulin lispro (human) 7 Units Subcutaneous TID AC pantoprazole 40 mg Intravenous BID Continuous Infusions dextrose PRN Medications acetaminophen OR acetaminophen, dextrose, dextrose, dextrose, diphenhydrAMINE, fentaNYL OR fentaNYL, glucagon, glucagon, labetalol, magnesium sulfate OR magnesium sulfate OR magnesium sulfate, ondansetron OR ondansetron, petrolatum, phosphorus OR sodi um phosphate IVPB 20 mmol OR sodium phosphate IVPB 45 mmol, potassium OR potassium * *OR potassium OR potassium chloride OR potassium chloride OR potassium chlorid e Allergy: No Known Allergies OBJECTIVE Vitals: Patient Vitals for the past 24 hrs: BP Temp Temp src Pulse Resp SpO2 Weight 05/16/16 0730 114/71 mmHg 98.2 F (36.8 C) Oral 88 20 98 % - 05/16/16 0419 121/72 mmHg 98.5 F (36.9 C) Oral 88 24 97 % - 05/15/16 2349 112/67 mmHg 97.8 F (36.6 C) Axillary 84 18 98 % - 05/15/16 1916 (!) 162/100 mmHg - - 98 20 98 % - 05/15/16 1638 - - - - - - 85.3 kg (188 lb 0.8 oz) 05/15/16 1636 149/76 mmHg 98 F (36.7 C) Oral 88 20 98 % - 05/15/16 1600 161/81 mmHg 98.1 F (36.7 C) Oral 90 16 96 % - 05/15/16 1530 175/86 mmHg - - 91 - 97 % - 05/15/16 1500 (!) 182/96 mmHg - - 95 13 - - 05/15/16 1430 (!) 168/93 mmHg - - 98 15 - - 05/15/16 1400 (!) 166/92 mmHg - - 98 19 97 % - 05/15/16 1230 158/76 mmHg - - 96 28 97 % - 05/15/16 1200 148/75 mmHg - - 90 27 98 % - 05/15/16 1130 116/71 mmHg - - 91 23 97 % - 05/15/16 1100 138/73 mmHg - - 94 30 96 % - 05/15/16 0930 140/78 mmHg - - 91 23 96 % - 05/15/16 0900 (!) 143/92 mmHg - - 94 (!) 48 98 % - 05/15/16 0830 108/68 mmHg - - 87 26 97 % - I&O Detailed Table: Intake/Output Summary (Last 24 hours) at 05/16/16 0827 Last data filed at 05/15/16 2350 Gross per 24 hour Intake 1178.1 ml Output 1150 ml Net 28.1 ml Patient Vitals for the past 96 hrs: Weight 05/15/16 1638 85.3 kg (188 lb 0.8 oz) 05/15/16 0430 90.6 kg (199 lb 11.8 oz) 05/14/16 0500 84.7 kg (186 lb 11.7 oz) Hemodynamics Last 24hrs: Examination: (nursing notereviewed). Constitutional: Appears well-developed HENT: Head: Normocephalic With Left facial droop Nose: Nose normal. Mouth/Throat: Oropharynx is clear and moist. Eyes: Conjunctivae and EOM are normal. Pupils are equal, round, and reactive to light. Neck: Normal range of motion. Neck supple. Cardiovascular: Normal rate, regular rhythm, normal heart sounds and intact distal pulses. Pulmonary/Chest: Effort normal and breath sounds normal. Abdominal: Soft. Bowel sounds are normal. Genitourinary: defer Musculoskeletal: strength upper ext left 1/5 lower ext 3/5 Rt Le rt UE 5/5 Neurological: Awake orieantation two Skin: Skin is dry. Psychiatric: has a normal mood and affect. At exam time LABS: Recent Labs Lab 05/16/16 0535 05/15/16 0359 WBC 12.85* 14.87* HGB 13.4 14.0 HCT 39.1 40.8 PLT 238 257 NEUTOPHILPCT 68.92 72.88 MONOPCT 10.32 8.16 Recent Labs Lab 05/16/16 0535 05/15/16 1249 05/15/16 0359 NA 139 -- 138 K 4.2 4.2 3.3* CL 104 -- 104 CO2 25 -- 25 BUN 9 -- 11 CREATININE 0.7 -- 0.7 PROT 5.8* -- -- BILITOT 1.7* -- -- ALT 15 -- -- AST 18 -- -- Phosphorus: Recent Labs Lab 05/16/16 0535 PHOS 4.5 Recent Labs Lab 05/16/16 0535 05/15/16 0359 MG 2.2 1.8 No results for input(s): AMYLASE in the last 168 hours. No results for input(s): PHART, PO2ART, EQD1OIR, C5KADVXW, BEART in the last 168 hours. No results for input(s): APTT, INR, PTT in the last 168 hours. No results for input(s): TSH, T3FREE, FREET4 in the last 168 hours. No results for input(s): CKTOTAL, TROPONINI, TROPONINT, CKMBINDEX in the last 168 hours. PROBLEM LIST Principal Problem: Ischemic stroke diagnosed during current admission ([facility]) Active Problems: Received intravenous tissue plasminogen activator (tPA) in emergency department Acute left hemiparesis ([facility]) Type 2 diabetes mellitus with hyperglycemia, with long-term current use of insulin (HCC) Type 2 diabetes mellitus with diabetic neuropathy, with long-term current use of insulin (HCC) Moderate protein-calorie malnutrition (HCC) GERD (gastroesophageal reflux disease) Hypokalemia Essential hypertension, benign ASSESSMENT & PLAN Principal Problem: Ischemic stroke-Acute left hemiparesis ([facility]) Ischemic stroke s/p TPA (05/14) ASA statin Permissive BP allowarnce repaet MRI Post tPA Stable PT/OT SL regarding vage h/o aF etoiology entaertain echo with bubbble reorder as yesterday he can "t position Discuss with hold of ARTIE for now holter as out patient Carotid U/S rt grade 50 -69% left 50-69% with CVA Will do CTA carotid and conulst vascular As need After result HTN- stable this am moniter Headache, 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 Controlled on pain on fentynyl Type 2 diabetes mellitus with hyperglycemia, with long-term current use of insulin (HCC ) with diabetic neuropathy, on neurotin as well A1C in 14s BS 200 this am 236 plan adjsut levemir 16 BID f/ up at lesatr traget <200 Moderate protein-calorie malnutrition (HCC) diet per ST pureed necter thick DDD -chronic pain- continue opiates bowel regim DVT pro GI pro skin care JOHN MURDOCK MD MD 05/16/2016 8:27 AM CTA review Utilizing NASCET criteria, there is 71% stenosis of the proximal left internal carotid dimas ry and 65% stenosis involving the proximal right internal carotid artery at the carotid bulb s. 4. Short segment foci of mild atherosclerosis with mild narrowing involving the left giovanny tebral artery. I disvcuss with regarding this at this point his current strok are pattern greeting card maker ior circulation at this point asymtomatic carotid stenosiis Consider and need f/ up vascular at out patie nt once d/c Angelica Pearson M D - 05/16/2016 8:26 AM PST Progress Notes by Angelica Bernardo MD at 05/16/16825 Author: Angelica Bernardo MD Service: Neurology Author Type: Physician Filed: 05/16/16840 Date of Service: 05/16/16825 Status: Signed Shale Miner: Angelica Bernardo MD (Physician) Subjective: Patient seen and examined. Reagan Shepard is a 71 y.o. male admitted to the hospital for left sided weakness. Patient Summary: please refer to H&P and My consult. Current complaints: Stable, left leg mildly better. Objective: Vitals: Temp: [97.8 F (36.6 C)-98.5 F (36.9 C)] 98.2 F (36.8 C) Heart Rate: [84-98] 88 Resp: [13-48] 20 BP: (108-182)/(67-100) 114/71 mmHg Speech: Is normal; fluent and spontaneous. Cognition: The patient is oriented to person, place, and time. Cranial Nerves: At this time, the pupils are equal, round, and reactive to light. Left faci al weakness. Normal trigeminal sensation bilaterally. Extraocular movements are intact. The tongue has normal motion. Tone: Normal muscle tone. Strength: Strength is 5/5 right, 1/5 left arm and 4/5 left leg distally and 2/5 proximally. Light Touch: Normal light touch sensation in upper and lower extremities. CURRENT MEDICATIONS: Scheduled Meds: aspirin 325 mg Oral Daily with breakfast Or aspirin 300 mg Rectal Daily with breakfast atorvastatin 80 mg Oral Nightly docusate sodium 100 mg Oral BID Or docusate 100 mg Per OG Tube BID enoxaparin 40 mg Subcutaneous Q24H gabapentin 1,200 mg Oral TID insulin detemir 12 Units Subcutaneous BID insulin lispro (human) 2-8 Units Subcutaneous Nightly insulin lispro (human) 4-16 Units Subcutaneous TID AC insulin lispro (human) 7 Units Subcutaneous TID AC pantoprazole 40 mg Intravenous BID Labs Lab Results Component Value Date WBC 12.85* 05/16/2016 HGB 13.4 05/16/2016 HCT 39.1 05/16/2016 MCV 82.0 05/16/2016 PLT 238 05/16/2016 Lab Results Component Value Date CREATININE 0.7 05/16/2016 BUN 9 05/16/2016 NA 139 05/16/2016 K 4.2 05/16/2016 CL 104 05/16/2016 CO2 25 05/16/2016 LP: 108 / 152 / 31 / 47 HGBA1c: 14.[address]: Was reported unremarkable for acute pathology but small vessels disease and sinus disease. Brain MRI: 1. Acute infarction in the right bogdan, as above. 2. Mild diffuse atrophy and minimal chronic microvascular disease noted. 3. 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 However, no clinical h/o stroke or hemorrhage p er patient. 4. Multifocal intracranial arterial stenoses. There are multifocal mild to moderate stenoses of both vertebral arteries. There are multif ocal high-grade stenoses of the right posterior cerebral artery. There is a mild to moderate stenosis involving the lower basilar artery. There is a mild to moderate stenosis of the le ft internal carotid artery at the skull base. There is mild stenosis of the left internal ca rotid artery siphon. Carotid US: 1. Right ICA: Grade 3 (50-69%). 2. Left ICA: Grade 3 (50-69%). 3. The vertebral arteries demonstrate normal antegrade flow and velocities bilaterally. Echo: 1. This was a technically difficult study with suboptimal views. 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 Patient not able to cooperate with positionin g and low tolerance for exam. 2. The left ventricle appears to be normal in size with normal systolic function EF 60-65%. 3. Aortic valve with limited veiws, however from short axis, severely decreased cusp excurs ion sugestive of aortic stenosis, no detailed doppler evaluation. 4. There is no pericardial effusion. 5- Bubble study not performed due to poor image quality and patients inability to lie still . EKG NSR. Telemetry: No clear arrhythmia. Assessment: 1- Left sided weakness, s/p IV rtPA with little improvement, due to right bogdan infarction, most likely [id number] in etiology related to uncontrolled DM. 2- DM, uncontrolled. 3- Possible HTN and HLD. 4- Vague h/o a-fib. Plan: 1. Telemetry bed with good hydration. 2. Neurocheck every 4 hours. Temperature every 4 hours and treat any temperature greater th an 100 (37.8). 3. After the first 24-72 hours of symptoms onset and if the patient is stable neurologicall y, we may start controlling BP by 10-15% per 24 hours toward 120-140/70. Avoid hypotension a nd keep MAP greater than 80-90. 4. Aspirin: 81 - 325 mg daily and statin to keep LDL-C level of <100 close to 70 mg/dL to o btain maximum benefit. 5. May need to follow with vascular surgery as an out patient for bilateral asymptomatic IC A stenosis. Continue medical therapy (Antiplatelates and statin). 6. Plan is to repeat echo for bubble study. He has a h/o cerebellar hemorrhage (per MRI) an d not sure if he will be a good candidate for anticoagulation. 7. 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 8. General care including GI and DVT prophylaxis and risk factors modification per primary team. Need to communicate with PCP for h/o a-fib. Thank you for allowing us to participate in your patient care. Please call with questions. Case and plan were discussed with patient and primary team in detail. onversion Transacti on, Provider Unknown - 05/16/2016 5:13 AM PSTFormatting of this note might be different fro m the original. Nurse Progress Note by Hero You RN at 05/16/16512 Author: Hero You RN Service: (none) Author Type: Registered Nurse Filed: 05/16/16514 Date of Service: 05/16/16512 Status: Signed Shale Miner: Hero You RN (Registered Nurse) Pt A&OX4, VSS. Pt denying pain at this time. Pt experienced a fall during shift change but was not hurt. Dr. Louise notifed and suggested a sitter. Pt sleeping throughout night, not ch anges in neurological status. Hero You RN 05/16/2016 onver elder Transaction, Provider Unknown - 05/15/2016 7:31 PM PST Nurse Progress Note by Sandra Cedillo RN at 05/15/161930 Author: Sandra Cedillo RN Service: (none) Author Type: Registered Nurse Filed: 05/15/161938 Date of Service: 05/15/161930 Status: Addendum Shale Miner: Sandra Cedillo RN (Registered Nurse) Related Notes: Original Note by Sandra Cedillo RN (Registered Nurse) filed at 05/15/161933 Patient had a witnessed fall from bed at 1920. Bed alarm and rails were up. Pt appeared t o slide down the side of the bed with all the blankets and bedding. Pt did not appear to hi t his head or sustain any injury. Vital signs stable. Dr. Louise notified and ordered for a sitter. Neuro check unchanged from previous assessments. onver elder Transaction, Provider Unknown - 05/15/2016 12:42 PM PST Therapy Progress Note by Douglas Coelho PT at 05/15/16 1242 Author: Douglas Coelho PT Service: (none) Author Type: Physical Therapist Filed: 05/15/16 1084 Date of Service: 05/15/16 1242 Status: Signed Shale Miner: Douglas Coelho PT (Physical Therapist) 05/15/16 1242 PT Last Visit PT Received On 05/15/16 Reason for Treatment Stroke Requires PT Follow Up Awaiting tx order Follow up PT Only? Yes (complexity) PT Eval/Reassessment Date 05/15/16 Assistance Required 2 person Suction Plate Roller Hand Needed No Home Environment Type of Home Home two story Home Exterior Layout Entry steps none Home Interior Layout Flight one;Rail on L ascending;Lives on main level with bedroom/bathro om;Walker accessible Bathroom Shower/Tub Tub/shower unit Bathroom Toilet Standard Bathroom Equipment Hand-held shower head;Tub transfer bench Bathroom Accessibility Accessible via walker Home Equipment Walker 4 wheeled;Cane single point Prior Function Level of [place] Independent with functional mobility;Independent with ADLs;Independe nt with IADLs;Driving in community Falls in Past Year Yes (three) Lives With Spouse ( takes care of him) ADL Assistance Independent Home ADL's Independent Employment Retired for age RUE Assessment RUE Assessment X (has anti-gravity movement, but weakness) LUE Assessment LUE Assessment X RLE Assessment RLE Assessment X (grossly weak) LLE Assessment LLE Assessment X Cognition Overall Cognitive Status WFL Orientation Level Oriented Comments slightly impulsive Sensation Light Touch Deficit apparent LLE Deficit Severe deficit Perception Inattention/Neglect Instruction to attend left visual field;Instruction to attend to left s evi of body Vision-Basic Assessment Current Vision Wears glasses Assessment of Patient Status Assessment of Patient Status Decreased UE strength;Decreased LE strength;Decreased functio nal mobility;Decreased ADL status;Impaired proprioception Prognosis Should progress with skilled therapy intervention Safety Devices Safety Devices in Place (call light in reach) Restraints Initially in Place No Precautions UE Precaution(s) LUE Precautions/WB LUE Sling (pt. is flacid LUE, benefit from sling ) Other Precautions High fall risk, L sided neglect Activity Tolerance Endurance Poor Sitting Balance Supports self with 25-50% effort using upper extremity, requires therapist assistance Plan Treatment/Interventions Bed mobility training;Balance training;Family training;Gait trainin g;Therapeutic exercise;Transfer training;W/C training PT Frequency 5-7x/wk;Once per day;Twice a day Care Duration (# of days) 7 # of days Recommendation Recommendations SNF Equipment Recommended (TBD) Barriers to Discharge Cognitive Deficits Impacting Functional [place];Physical Deficit s Impacting Functional [place];Self-care Deficits Impacting Functional [place];Malik rological Impairment (see comment) Recommendation Comments pt. needs Max x 2 for transfers and mobility and should benefit fro m SNF to improve strength, endurance and functional mobility 05/15/16 1242 PT Last Visit PT Received On 05/15/16 Reason for Treatment Stroke Requires PT Follow Up Awaiting tx order Follow up PT Only? Yes (complexity) PT Eval/Reassessment Date 05/15/16 Assistance Required 2 person Suction Plate Roller Hand Needed No Precautions UE Precaution(s) LUE Precautions/WB LUE Sling (pt. is flacid LUE, benefit from sling ) Other Precautions High fall risk, L sided neglect Other Comments Comments Chart reviewed pt, pt is a 71 year old male that presented to the hospital for a s troke. Completed home assessment and PLOF with pt. HR 97BPM, O2 97%, BP 119/78. pt. wanted to get to commode when therapist arrived, got comode for pt and transferred pt. to his R (s saida side) and was a Max (heavy) A squat Pivot. pt. had a BM and then sit to stand from co mmode Max A unable to get full stand but able to stand enough so PT tech could perform peric are. pt. sat back on commode after getting cleaned up and then was a Max A x 2 going to his left (very heavy) Nursing staff to use sling/ceiling lift to get pt. up at this time. pt. having neglect on L side body and spatial. pt. supine in bed at end of session with call tavo penny in reach. Cognition Overall Cognitive Status WFL Orientation Level Oriented Comments slightly impulsive Bed Mobility Supine to Sit Max assist (BLEs OOB & trunk to upright);x 2 person Sit to Supine Max assist (BLEs into bed & trunk to lower);x 2 person Scooting Maximal assist;x 2 person Transfers Sit to/from Stand Maximal assist (to arise AND lower);x 2 person;x 1 person Bed to/from Chair Maximal assist (to arise AND lower);x 2 person Squat Pivot Transfers Maximal assist (to arise AND lower);x 2 person Mobility Ambulation Assistance Not performed;Safety concerns Modalities Modalities Other therapy Other Therapy ed. on safe mobility, goals and POC Activity Tolerance Activity Tolerance Treatment limited secondary to medical complications Nurse Made Aware yes Safety Devices Safety Devices in Place (call light in reach) Restraints Initially in Place No Plan Treatment/Interventions Bed mobility training;Balance training;Family training;Gait trainin g;Therapeutic exercise;Transfer training;W/C training PT Frequency 5-7x/wk;Once per day;Twice a day Care Duration (# of days) 7 # of days Recommendation Recommendations SNF Equipment Recommended (TBD) Barriers to Discharge Cognitive Deficits Impacting Functional [place];Physical Deficit s Impacting Functional [place];Self-care Deficits Impacting Functional [place];Malki rological Impairment (see comment) Recommendation Comments pt. needs Max x 2 for transfers and mobility and should benefit fro m SNF to improve strength, endurance and functional mobility Low - 19694 Moderate - 82602 High - 92626 History no personal factors &/or comorbidities 1-2 personal factors &/or comorbidities 3 o r more personal factors &/or comorbidities Examination 1-2 elements 3 elements 4 or more elements Clinical Presentation stable evolving unstable Clinical Decision Making Complexity: Low 84722 Moderate 25827 High 11425 Viviana Ferrer ARNP - 05/15/2016 9:41 AM PSTFormatting of this note might be different from stephanie brown original. Progress Notes by RUBEN Atkins at 05/15/16 4140 Author: RUBEN Atkins Service: Senior Systems Administrator Author Type: Advanced Registered January rooney Practitioner Filed: 05/15/16 6550 Date of Service: 05/15/1645 Status: Signed Shale Miner: RUBEN Atkins (Advanced Registered Nurse Practitioner) [facility] Service: Senior Systems Administrator Progress Note Reagan Shepard 71 y.o. Hospital Day: LOS: 1 day Post-Op Day: * No surgery found * Consulting Physicians Treatment Team: Consulting Physician: Wing Nina Alicia MD Consulting Physician: Angelica Bernardo MD Admitting Provider: Marlin Mckeon MD SUBJECTIVE Patient Summary: The patient is a 71 y.o. male with significant past medical history of DM 2 with neuropathy, degenerative disk disease, and TBI who initially presented to [facility] with left facial droop and left-sided weakness. He had an episode of uri nary incontinence and fall, EMS called and patient was brought to [facility] ED. Patient was last seen normal on 05/13/16 at 22:00. CT head unremarkable, no ICH. Initial NIHSS score of 14 and TPA administered at 2:28 am. Patient is also complaining of a 3-week history of intermittent left-sided weakness and fal ls. He uses a cane for ambulation. Denies any fever or chills, no changes in vision, no nausea and vomiting. Complains of 5/10 generalized headache which is usual for him with his hx of TBI. Labs: negative drug screen, BG 473, Na 129 - corrected 135, K 4.7, BUN 14, Crea 0.86, Hb 15 .4. ICU Timeline: 05/14: Admitted to ICU. Endotool started. Close neuro checks. Events Overnight: Intermittent headache controlled with fentanyl. SCHEDULED MEDICATIONS aspirin 325 mg Oral Daily with breakfast Or aspirin 300 mg Rectal Daily with breakfast atorvastatin 80 mg Oral Nightly chlorhexidine gluconate 15 mL Mouth/Throat Q12H docusate sodium 100 mg Oral BID Or docusate 100 mg Per OG Tube BID insulin detemir 12 Units Subcutaneous BID insulin lispro (human) 2-8 Units Subcutaneous Nightly insulin lispro (human) 4-16 Units Subcutaneous TID AC insulin lispro (human) 7 Units Subcutaneous TID AC pantoprazole 40 mg Intravenous BID CONTINUOUS INFUSIONS dextrose niCARdipine in NaCl OBJECTIVE VITAL SIGNS Temp: [97.7 F (36.5 C)-98.4 F (36.9 C)] 97.7 F (36.5 C) Heart Rate: [81-97] 94 Resp: [12-48] 48 BP: (103-181)/(60-112) 143/92 mmHg Intake/Output Summary (Last 24 hours) at 05/15/16 0941 Last data filed at 02/25/17 0800 Gross per 24 hour Intake 3509.2 ml Output 1000 ml Net 2509.2 ml EXAM GEN: awake, alert, oriented x3, NAD NEURO: following commands Cranial nerves: PERRLA, EOMI, left facial droop Motors: right upper extremity 5/5, right lower extremity 5/5, left upper extremity 1/5, lef t lower extremity 3/5 (able to push against gravity and slightly lift LLE off the bed) Sensory: bilateral lower extremity paresthesias Cerebellar: no dysmetria, no nystagmus GCS: 15 HEENT: sclerae clear, nonicteric, oral mmm, pink, no exudates NECK: supple, trachea midline CV: RRR, S1/S2, no murmur, rub or gallop, peripheral pulses palpable, cap refill brisk LUNGS: clear b/l, no wheezing, rales or rhonchi, symmetric chest expansion, even/unlabored respirations ABD: soft, nondistended, nontender to palpation, no masses EXTR: no edema, clubbing or cyanosis SKIN: warm, dry, no rash or mottling; no e/o skin breakdown over the occiput, scapulae, elb ows, sacrum or heels LINES/TUBES: PIV DATA Recent Labs Lab 05/15/16 0359 WBC 14.87* RBC 5.01 HGB 14.0 HCT 40.8 MCV 81.5 MCH 27.9 MCHC 34.2 RDW 42.0 PLT 257 MPV 8.4 NEUTROABS 10.84* LYMPHSABS 2.62 MONOSABS 1.21* BASOSABS 0.04 EOSABS 0.16 Recent Labs Lab 05/15/16 0359 NA 138 K 3.3* CL 104 CO2 25 ANIONGAP 12 GLUF 125* BUN 11 CREATININE 0.7 BCR 16 CA 8.3* EGFR >60 PHOS 3.0 MG 1.8 No results for input(s): INR in the last 168 hours. IMAGING Echo Cardiac Adult Complete 05/14/2016 1. This was a technically difficult study with suboptimal views. Patient with l eft sided paralysis with obstruction of apical window. Patient not able to cooperate with p ositioning and low tolerance for exam. 2. The left ventricle appears to be normal in size wi th normal systolic function EF 60-65%. 3. Aortic valve with limited veiws, however from shor t axis, severely decreased cusp excursion sugestive of aortic stenosis, no detailed doppler evaluation. 4. There is no pericardial effusion. Mri Brain Wo Contrast And Mra Head 05/15/2016 1. Acute infarction in the right bogdan, as above. 2. Mild diffuse atrophy and m inimal chronic microvascular disease noted. 3. 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 4. M ultifocal intracranial arterial stenoses, as above. LEM LIST Principal Problem: Ischemic stroke diagnosed during current admission (HCC) Active Problems: Received intravenous tissue plasminogen activator (tPA) in emergency department Acute left hemiparesis (HCC) Type 2 diabetes mellitus with hyperglycemia, with long-term current use of insulin (HCC) Type 2 diabetes mellitus with diabetic neuropathy, with long-term current use of insulin (HCC) Moderate protein-calorie malnutrition (HCC) GERD (gastroesophageal reflux disease) Hypokalemia Essential hypertension, benign Resolved Problems: * No resolved hospital problems. * ASSESSMENT & PLAN NEURO: Ischemic stroke s/p TPA (05/14@0228). Seen by Dr. Montez -Stroke Neurologist. Giselle lopez NIHSS of 14. Follow up on arrival to [facility] 9. Dr. Tova marin Keep BP < 180/105 mmHg, brain MRI 24 hours post-TPA with no e/o hemorrhage. Keep normoth ermic, normoglycemic. PT/OT/CHEMICAL PROCESS EQUIPMENT OPERATOR following. ? cardioembolic as cause for ischemic stroke: TTE (05/14) unable to visualize PFO, thromb us. Patient unable to tolerate exam and positioning. Need to assess for thrombus - will need to obtain ARTIE under sedation. Carotid U/S to rule out stenosis pending. 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 Controlled on pain medications DM Neuropathy - resume gabapentin DDD -chronic pain- continue opiates CV: Hypertension: Strict BP control s/p TPA. PRN nicardipine and labetalol ordered. Controll ed on labetalol, currently not requiring nicardipine Possible paroxysmal atrial fibrillation: EKG - normal sinus rhythm on admit. Tele with S R. Plan to contact PCP re previous medical history on Tuesday (05/17). Cont to monitor on tele metry. PULM: Able to protect airway. On room air. GI/NUTRITION: Moderate protein-calorie malnutrition: [place] thick liquids per CHEMICAL PROCESS EQUIPMENT OPERATOR recs. GERD: on protonix at home. Continue PPI RENAL/LYTES: Hypokalemia: monitor electrolytes and replace as needed Renal function normal - crea 0.86: Avoid nephrotoxins and renally dose medications ID: No active ID issues HEME: Monitor CBCs and coags. Hb 15.4, INR 0.9, APTT 31 Transfusion goal <7 g/dL. Start full dose ASA s/p TPA -repeat MRI/MRA with no e/o hemorrhagic transformation. ENDO: Poorly controlled DM - A1C:14.7 Blood glucose goal 100-180 mg/dL, controlled on sliding scale. Start Endotool if BG >180 x 2 MUSC/SKIN: Reviewed skin cares with nursing. Mobilize when able Turns q2h to prevent pressure ulcers PT/OT PROPHYLAXIS: Stress ulcer prophylaxis: Protonix DVT prophylaxis: SCDs, lovenox VAP bundle: N/A Disposition: ICU cares as above. Plan to transfer to hospitalist service. Follow up carot id dopplers and ARTIE. Plan of care discussed with patient. Code Status: Full Code *Please bill 55 minutes of critical care time spent evaluating the patient, reviewing the d kourtney and formulating a plan exclusive of all other procedures. RUBEN Atkins 05/15/2016 Angelica Pearson MD - 05/15/2016 9:13 AM PST Progress Notes by Angelica Bernardo MD at 05/15/16 4375 Author: Angelica Bernardo MD Service: Neurology Author Type: Physician Filed: 05/15/16 0538 Date of Service: 05/15/16912 Status: Signed Shale Miner: Angelica Bernardo MD (Physician) Subjective: Patient seen and examined. Reagan Shepard is a 71 y.o. male admitted to the hospital for left sided weakness. Patient Summary: please refer to H&P and My consult. Current complaints: Stable, left leg mildly better. Objective: Vitals: Temp: [97.7 F (36.5 C)-98.4 F (36.9 C)] 97.7 F (36.5 C) Heart Rate: [80-97] 94 Resp: [12-48] 48 BP: (103-181)/(60-112) 143/92 mmHg Speech: Is normal; fluent and spontaneous. Cognition: The patient is oriented to person, place, and time. Cranial Nerves: At this time, the pupils are equal, round, and reactive to light. Visual fi elds are full to finger confrontation. Extraocular movements are intact. Voice is normal. Th e tongue has normal motion. Tone: Normal muscle tone. Strength: Strength is 5/5 right, 1/5 left arm and 4/5 left leg. Light Touch: Normal light touch sensation in upper and lower extremities. CURRENT MEDICATIONS: Scheduled Meds: aspirin 325 mg Oral Daily with breakfast Or aspirin 300 mg Rectal Daily with breakfast atorvastatin 80 mg Oral Nightly chlorhexidine gluconate 15 mL Mouth/Throat Q12H docusate sodium 100 mg Oral BID Or docusate 100 mg Per OG Tube BID insulin detemir 12 Units Subcutaneous BID insulin lispro (human) 2-8 Units Subcutaneous Nightly insulin lispro (human) 4-16 Units Subcutaneous TID AC insulin lispro (human) 7 Units Subcutaneous TID AC pantoprazole 40 mg Intravenous BID Labs Lab Results Component Value Date WBC 14.87* 05/15/2016 HGB 14.0 05/15/2016 HCT 40.8 05/15/2016 MCV 81.5 05/15/2016 PLT 257 05/15/2016 Lab Results Component Value Date CREATININE 0.7 05/15/2016 BUN 11 05/15/2016 NA 138 05/15/2016 K 3.3* 05/15/2016 CL 104 05/15/2016 CO2 25 05/15/2016 LP: 108 / 152 / 31 / 47 HGBA1c: 14.[address]: Was reported unremarkable for acute pathology but small vessels disease and sinus disease. Brain MRI: 1. Acute infarction in the right bogdan, as above. 2. Mild diffuse atrophy and minimal chronic microvascular disease noted. 3. 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 4. Multifocal intracranial arterial stenoses, as above. There are multifocal mild to moderate stenoses of both vertebral arteries. There are multif ocal high-grade stenoses of the right posterior cerebral artery. There is a mild to moderate stenosis involving the lower basilar artery. There is a mild to moderate stenosis of the le ft internal carotid artery at the skull base. There is mild stenosis of the left internal ca rotid artery siphon. Carotid US: P Echo: 1. This was a technically difficult study with suboptimal views. 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 Patient not able to cooperate with positionin g and low tolerance for exam. 2. The left ventricle appears to be normal in size with normal systolic function EF 60-65%. 3. Aortic valve with limited veiws, however from short axis, severely decreased cusp excurs ion sugestive of aortic stenosis, no detailed doppler evaluation. 4. There is no pericardial effusion. 5- Bubble study not performed due to poor image quality and patients inability to lie still . EKG NSR. Telemetry: Sinus rhythm. Assessment: 1- Left sided weakness, s/p IV rtPA with little improvement, due to right bogdan infarction, most likely [id number] in etiology related to uncontrolled DM. 2- DM, uncontrolled. 3- Possible HTN and HLD. 4- Vague h/o a-fib. Plan: 1. Telemetry bed with good hydration (avoid hypotonic fluids). 2. Neurocheck every 2 hours. 3. Temperature every 4 hours and treat any temperature greater than 100 (37.8). 4. Glucose finger stick every 6 hours if patient is NPO or AC and HS if patient has a diet ordered. Treat aggressively blood glucose concentrations >140 to 185 mg/dL. 5. After the first 24-72 hours of symptoms onset and if the patient is stable neurologicall y, we may start controlling BP by 10-15% per 24 hours toward 120-140/70. Avoid hypotension a nd keep MAP greater than 80-90. 6. Aspirin: 81 - 325 mg daily and statin to keep LDL-C level of <100 close to 70 mg/dL to o btain maximum benefit. 7. Carotid US is pending. 8. With vague history of A-fib from 1979 (no clinical recurrence per patient and no documen tation), recommend retirement Holter (30 days). 9. Consult PT, OT, Speech therapy and IPR if felt to be indicated. 10. General care including GI and DVT prophylaxis and risk factors modification per primary team. Need to communicate with PCP for h/o a-fib. Thank you for allowing us to participate in your patient care. Please call with questions. onversion Transacti on, Provider Unknown - 05/14/2016 3:29 PM PSTFormatting of this note might be different fro m the original. Progress Notes by Pretty Dhillon RD, ROYAL at 05/14/161528 Author: Pretty Dhillon RD, CD Service: (none) Author Type: Registered Dietitian Filed: 05/14/161528 Date of Service: 05/14/161528 Status: Signed Shale Miner: Pretty Dhillon RD, CD (Registered Dietitian) 05/14/161516 Subjective Timepoint Admit (dysphagia) Pt c/o Pt was admitted with ischemic stroke, s/p tPA. Pt had acute left hemiparesis which h as been improving. Reports that his appetite had been poor for at least the past couple of m onths. Diet Experience Self-selected diet(s) followed Pt reports that he and his share the cooking responsibi lities at home. They often eat out and pt has recently not been following any special diet o r managing his diabetes despite diabetes education in the past. Pt states that is also familiar with the diabetic diet as she has diabetes and both her parents from diabetes complications. Pt has a BG meter at home but has not been checking his BG levels or taking h is DM meds. Pt reports that he typically eats only 2 meals/day. Has been eating much smaller portions than usual over the past 2 months. Fluid / Beverage Intake Oral Fluids Amount [place] thick liquids ad bryant. Ok for 1 ice chip at a time. Food Intake Amount of Food Pt ate the majority of lunch today. Type of Food / Meals Dysphagia pureed diet. Meal / Snack Pattern House diet. Parenteral Nutrition Intake Rate/Solution On IV fluids of NS at 30 mL/hr. Nutrition-Focused Physical Findings Overall Appearance Noted to have mild muscle wasting (temporal, shoulder, clavicular) and l oss of subcutaneous fat. Digestive System (Mouth to Rectum) CHEMICAL PROCESS EQUIPMENT OPERATOR following for dysphagia. Skin Intact. Anthropometrics Weight change Pt reports that lost about 80# over the past year due to decreased intake. Wt loss of 30.1% over a 1-year time frame is considered severe. Further wt loss to be avoided. Biochemical data, medical tests, and procedures reviewed Biochemical data, medical tests, and procedures reviewed BG has been elevated in the 200s-3 00s. EndoTool insulin drip ordered. HgbA1c pending. Estimated Energy Needs Total Energy Estimated Needs 8865-7888 kcal/day Method for Estimating Needs 25-30 kcal/kg admit wt (84.7 kg) Estimated Protein Needs Total Protein Estimated Needs 102-127 g protein/day Method for Estimating Needs 1.2-1.5 g protein/kg admit wt (84.7 kg) Recommendations Recommended energy needs Recommend adding diabetic diet restrictions to current CHEMICAL PROCESS EQUIPMENT OPERATOR diet or nigel to help optimize glycemic control and encourage adherence to a diabetic diet. Will eulogio nue to monitor adequacy of PO intake. Appetite seems to be improving. Supplements available PRN. Recommend CDE consult. Per pt request, will f/u when pt's is present to offer diab etic diet education prior to discharge. Further nutrition recs to follow as needed. Nutritional Risk Nutritional risk Moderate / high Follow up date 05/18/16 Malnutrition Evaluation Estimated energy intake time frame 1 Month Estimated % energy intake last 1 month 75 % RD Assessed Weight 84.7 kg (186 lb 11.7 oz) Weight Loss time frame 12 Months Weight 12 months ago 121.1 kg (266 lb 15.6 oz) % weight loss from 12 months ago (!) -30.06 % Malnutrition in the Context Of Chronic Illness Clinical Characteristics indicative of moderate malnutrition Mild body fat depletion;Mild m uscle mass depletion;less than 75% of EER within 1 month Clinical Characteristics indicative of severe malnutrition >20% weight loss over 1 year Protein-Calorie Malnutrition Type (!) Moderate Pretty Dhillon, AYESHA, CD, CNSC 05/14/2016 onver elder Transaction, Provider Unknown - 05/14/2016 9:12 AM PST Therapy Progress Note by Kate Hale MA CCC-CHEMICAL PROCESS EQUIPMENT OPERATOR at 05/14/16911 Author: Kate Hale MA CCC-CHEMICAL PROCESS EQUIPMENT OPERATOR Service: (none) Author Type: Speech and Language Patholo gist Filed: 05/14/16 0945 Date of Service: 05/14/16911 Status: Signed Shale Miner: Kate Hale MA CCC-CHEMICAL PROCESS EQUIPMENT OPERATOR (Speech and Language Pathologist) 05/14/16911 CHEMICAL PROCESS EQUIPMENT OPERATOR Last Visit CHEMICAL PROCESS EQUIPMENT OPERATOR Received On 05/14/16 Requires CHEMICAL PROCESS EQUIPMENT OPERATOR Follow Up Yes Swallowing Assessment Eval Swallowing Evaluation Yes Initial Swallow Assessment Respiratory Status Room air Behavior/Cognition Alert;Cooperative Dentition Dentures upper;Other (Comment) (no teeth lower doesn't wear lower set) Vision Functional for self-feeding;Other (comment) (left paresis difficult to feed himself) Patient Positioning Upright in bed Baseline Vocal Quality Weak Volitional Cough Weak Volitional Swallow Delayed Oral Motor Exam Labial ROM Reduced left Labial Symmetry Abnormal symmetry left Labial Strength Reduced Lingual ROM WFL Lingual Symmetry WFL Lingual Strength WFL Facial Symmetry Left droop Vocal Quality Weak Consistencies Consistencies Assessed Yes Ice Chips Presentation Spoon Oral Phase Prolonged mastication Pharyngeal Phase No overt signs or symptoms of aspirations;Delayed swallow initiation;Decre ased laryngeal elevation upon palpation Thin Presentation Cup;Spoon;Self Fed Oral Phase Thin WFL Pharyngeal Phase Decreased laryngeal elevation upon palpation;Delayed swallow initiated;Cou gh - immediate;Other (Comment) (immediate cough by 1/2 trials by cup, none by spoon) [place] Presentation Cup;Self Fed Oral WFL Pharyngeal Phase Delayed swallow initiated;Decreased laryngeal elevation upon palpation;Spo ntaneous double swallow;Cough - delayed;Other (comments) (1 cough delayed with 8oz on large drink ) Puree Presentation Spoon Oral Phase WFL Pharyngeal No overt signs or symptoms of aspiration;Delayed Swallow;Decreased Laryngeal Esme vation Dysphagia Mechanically Altered Presentation Spoon Oral Phase Pocketing Right;Decreased oral transit Pharyngeal Phase Delayed Swallow;No overt signs or symptoms of aspiration;Decreased Larynge al Elevation Recommendations Liquids Consistency Recommendations [place] thick;Ice chips for oral comfort Diet Consistency Recommendation Pureed Recommendations Dysphagia treatment;1:1 supervision;Feeding assist;Set up with meals Risk for Aspiration Moderate Compensatory Swallowing Strategies Upright as possible for all oral intake;Remain upright f or 30 minutes after meals;Swallow 2 times per bite/sip;Slow rate presentation;No straws;Smal l bites/sips;Eat/feed slowly;Effortful swallow;Check for pocketing Recommended Form of Meds Meds floated in puree;Meds crushed in puree Summary Pt agreeable for swallow evaluation. Spouse reports pt's left sided facial weakness has been improving. Pt's speech was 100% intelligible; however, pt spoke in short phrases a nd sentences with low volume. Suspect mild dysarthria due to left sided labial and facial we akness. Pt demo'd immediate coughing with thin liquids via cup. Pt demo'd one cough with nec tar thick liquids via cup taking a large drink, cough was delayed. Pt appeared to tolerate p uree diet textures with no overt s/sx of aspiration. Pt demo'd left cheek pocketed bolus wit h dysphagia mechanical diet textures, no awareness until cued by CHEMICAL PROCESS EQUIPMENT OPERATOR. At this time, recommen d puree diet with nectar thick liquids. ST to follow to ensure diet tolerance and swallow sa fety. Pt requires 1:1 supervision and no straws. Ice chips okay. Staff Notified MD;RN Plan of Care Treatment Plan ST to follow;Dysphagia treatment;Speech language evaluation/treatment Treatment Frequency 4-6 x/week Care Duration (Days) 10 Days Follow up treatments Swallow strategies;Diet tolerance monitoring;Patient/Family education; Assessment for upgrade Dysphagia Goals Enterprise Account Executive Goals Safe/efficient oral intake Pt will have safe/efficient oral intake Thin liquids;Mechanical soft diet;With min cues;Ne w/revised goal Short Term Goals Tolerate liquid consistency Pt will tolerate tolerate liquid consistency [place] thick liquids;with 1:1 supervision;New /revised goal onver elder Transaction, Provider Unknown - 05/14/2016 9:12 AM PST Therapy Progress Note by Zenon Schaeffer PT at 05/14/16 0912 Author: Zenon Schaeffer PT Service: Physical Medicine and Rehab Author Type: Physical Therapist Filed: 05/14/16 1556 Date of Service: 05/14/16911 Status: Signed Shale Miner: Zenon Schaeffer PT (Physical Therapist) 05/14/16 09 PT Last Visit PT Received On 05/14/16 (Per notes received tPA around 2 a.m. Will hold PT to allow) Requires PT Follow Up On hold (24 hour therapeutic window s/p tPA) onver elder Joeaction, Provider Unknown - 05/14/2016 5:57 AM PST [place] [id number] Author: Iggy Lee RPH Service: Pharmacy Author Type: Pharmacist Filed: 05/14/16556 Date of Service: 05/14/16556 Status: Signed Shale Miner: Iggy Lee RPH (Pharmacist) Pharmacy will renal dose as needed once labs are available. docume nted in this encounter Plan of Treatment Not on filedocumented as of this encounter Procedures + +--------+ + + + | Procedure Name | Priori | Date/Time | Associated Diagnosis | Comments | | | ty | | | | + +--------+ + + + | POC GLUCOSE | Routin | 05/19/2016 | | Results for this | | | e | 11:30 AM | | procedure are in the | | | | PST | | results section. | + +--------+ + + + | POC GLUCOSE | Routin | 05/19/2016 | | Results for this | | | e | 5:28 AM | | procedure are in the | | | | PST | | results section. | + +--------+ + + + | POC GLUCOSE | Routin | 05/18/2016 | | Results for this | | | e | 9:19 PM | | procedure are in the | | | | PST | | results section. | + +--------+ + + + | POC GLUCOSE | Routin | 05/18/2016 | | Results for this | | | e | 4:19 PM | | procedure are in the | | | | PST | | results section. | + +--------+ + + + | POC GLUCOSE | Routin | 05/18/2016 | | Results for this | | | e | 11:38 AM | | procedure are in the | | | | PST | | results section. | + +--------+ + + + | POC GLUCOSE | Routin | 05/18/2016 | | Results for this | | | e | 5:41 AM | | procedure are in the | | | | PST | | results section. | + +--------+ + + + | EXTERNAL LAB: CBC | Routin | 05/18/2016 | | Results for this | | | e | 5:22 AM | | procedure are in the | | | | PST | | results section. | + +--------+ + + + | PHOSPHORUS | Routin | 05/18/2016 | | Results for this | | | e | 5:22 AM | | procedure are in the | | | | PST | | results section. | + +--------+ + + + | MAGNESIUM | Routin | 05/18/2016 | | Results for this | | | e | 5:22 AM | | procedure are in the | | | | PST | | results section. | + +--------+ + + + | BASIC METABOLIC | Routin | 05/18/2016 | | Results for this | | PANEL | e | 5:22 AM | | procedure are in the | | | | PST | | results section. | + +--------+ + + + | POC GLUCOSE | Routin | 05/17/2016 | | Results for this | | | e | 9:05 PM | | procedure are in the | | | | PST | | results section. | + +--------+ + + + | POC GLUCOSE | Routin | 05/17/2016 | | Results for this | | | e | 4:13 PM | | procedure are in the | | | | PST | | results section. | + +--------+ + + + | POC GLUCOSE | Routin | 05/17/2016 | | Results for this | | | e | 11:30 AM | | procedure are in the | | | | PST | | results section. | + +--------+ + + + | POC GLUCOSE | Routin | 05/17/2016 | | Results for this | | | e | 5:47 AM | | procedure are in the | | | | PST | | results section. | + +--------+ + + + | EXTERNAL LAB: CBC | Routin | 05/17/2016 | | Results for this | | | e | 5:25 AM | | procedure are in the | | | | PST | | results section. | + +--------+ + + + | PHOSPHORUS | Routin | 05/17/2016 | | Results for this | | | e | 5:25 AM | | procedure are in the | | | | PST | | results section. | + +--------+ + + + | MAGNESIUM | Routin | 05/17/2016 | | Results for this | | | e | 5:25 AM | | procedure are in the | | | | PST | | results section. | + +--------+ + + + | COMPREHENSIVE | Routin | 05/17/2016 | | Results for this | | METABOLIC PANEL | e | 5:25 AM | | procedure are in the | | | | PST | | results section. | + +--------+ + + + | POC GLUCOSE | Routin | 05/16/2016 | | Results for this | | | e | 9:12 PM | | procedure are in the | | | | PST | | results section. | + +--------+ + + + | POC GLUCOSE | Routin | 05/16/2016 | | Results for this | | | e | 4:05 PM | | procedure are in the | | | | PST | | results section. | + +--------+ + + + | ECHO LIMITED | Routin | 05/16/2016 | | Results for this | | | e | 12:20 PM | | procedure are in the | | | | PST | | results section. | + +--------+ + + + | POC GLUCOSE | Routin | 05/16/2016 | | Results for this | | | e | 11:36 AM | | procedure are in the | | | | PST | | results section. | + +--------+ + + + | CT ANGIOGRAM HEAD | Routin | 05/16/2016 | | Results for this | | NECK W CONTRAST | e | 9:59 AM | | procedure are in the | | | | PST | | results section. | + +--------+ + + + | EXTERNAL LAB: CBC | Routin | 05/16/2016 | | Results for this | | | e | 5:35 AM | | procedure are in the | | | | PST | | results section. | + +--------+ + + + | POC GLUCOSE | Routin | 05/16/2016 | | Results for this | | | e | 5:35 AM | | procedure are in the | | | | PST | | results section. | + +--------+ + + + | PHOSPHORUS | Routin | 05/16/2016 | | Results for this | | | e | 5:35 AM | | procedure are in the | | | | PST | | results section. | + +--------+ + + + | MAGNESIUM | Routin | 05/16/2016 | | Results for this | | | e | 5:35 AM | | procedure are in the | | | | PST | | results section. | + +--------+ + + + | COMPREHENSIVE | Routin | 05/16/2016 | | Results for this | | METABOLIC PANEL | e | 5:35 AM | | procedure are in the | | | | PST | | results section. | + +--------+ + + + | POC GLUCOSE | Routin | 05/15/2016 | | Results for this | | | e | 9:42 PM | | procedure are in the | | | | PST | | results section. | + +--------+ + + + | POC GLUCOSE | Routin | 05/15/2016 | | Results for this | | | e | 5:38 PM | | procedure are in the | | | | PST | | results section. | + +--------+ + + + | VAS CAROTID DUPLEX | Routin | 05/15/2016 | | Results for this | | BILATERAL | e | 4:20 PM | | procedure are in the | | | | PST | | results section. | + +--------+ + + + | POTASSIUM | Routin | 05/15/2016 | | Results for this | | | e | 12:49 PM | | procedure are in the | | | | PST | | results section. | + +--------+ + + + | POC GLUCOSE | Routin | 05/15/2016 | | Results for this | | | e | 11:42 AM | | procedure are in the | | | | PST | | results section. | + +--------+ + + + | MRI BRAIN WO | Routin | 05/15/2016 | | Results for this | | CONTRAST ANGIOGRAM | e | 10:47 AM | | procedure are in the | | HEAD WO CONTRAST | | PST | | results section. | + +--------+ + + + | POC GLUCOSE | Routin | 05/15/2016 | | Results for this | | | e | 9:11 AM | | procedure are in the | | | | PST | | results section. | + +--------+ + + + | POC GLUCOSE | Routin | 05/15/2016 | | Results for this | | | e | 7:54 AM | | procedure are in the | | | | PST | | results section. | + +--------+ + + + | POC GLUCOSE | Routin | 05/15/2016 | | Results for this | | | e | 5:10 AM | | procedure are in the | | | | PST | | results section. | + +--------+ + + + | POC GLUCOSE | Routin | 05/15/2016 | | Results for this | | | e | 4:02 AM | | procedure are in the | | | | PST | | results section. | + +--------+ + + + | EXTERNAL LAB: CBC | Routin | 05/15/2016 | | Results for this | | | e | 3:59 AM | | procedure are in the | | | | PST | | results section. | + +--------+ + + + | LIPID PANEL | Routin | 05/15/2016 | | Results for this | | | e | 3:59 AM | | procedure are in the | | | | PST | | results section. | + +--------+ + + + | PHOSPHORUS | Routin | 05/15/2016 | | Results for this | | | e | 3:59 AM | | procedure are in the | | | | PST | | results section. | + +--------+ + + + | MAGNESIUM | Routin | 05/15/2016 | | Results for this | | | e | 3:59 AM | | procedure are in the | | | | PST | | results section. | + +--------+ + + + | HEMOGLOBIN A1C | Routin | 05/15/2016 | | Results for this | | | e | 3:59 AM | | procedure are in the | | | | PST | | results section. | + +--------+ + + + | BASIC METABOLIC | Routin | 05/15/2016 | | Results for this | | PANEL | e | 3:59 AM | | procedure are in the | | | | PST | | results section. | + +--------+ + + + | POC GLUCOSE | Routin | 05/15/2016 | | Results for this | | | e | 2:44 AM | | procedure are in the | | | | PST | | results section. | + +--------+ + + + | POC GLUCOSE | Routin | 05/15/2016 | | Results for this | | | e | 1:38 AM | | procedure are in the | | | | PST | | results section. | + +--------+ + + + | POC GLUCOSE | Routin | 05/15/2016 | | Results for this | | | e | 12:37 AM | | procedure are in the | | | | PST | | results section. | + +--------+ + + + | POC GLUCOSE | Routin | 05/14/2016 | | Results for this | | | e | 11:28 PM | | procedure are in the | | | | PST | | results section. | + +--------+ + + + | POC GLUCOSE | Routin | 05/14/2016 | | Results for this | | | e | 10:22 PM | | procedure are in the | | | | PST | | results section. | + +--------+ + + + | POC GLUCOSE | Routin | 05/14/2016 | | Results for this | | | e | 9:17 PM | | procedure are in the | | | | PST | | results section. | + +--------+ + + + | POC GLUCOSE | Routin | 05/14/2016 | | Results for this | | | e | 8:04 PM | | procedure are in the | | | | PST | | results section. | + +--------+ + + + | POC GLUCOSE | Routin | 05/14/2016 | | Results for this | | | e | 6:40 PM | | procedure are in the | | | | PST | | results section. | + +--------+ + + + | POC GLUCOSE | Routin | 05/14/2016 | | Results for this | | | e | 6:18 PM | | procedure are in the | | | | PST | | results section. | + +--------+ + + + | POC GLUCOSE | Routin | 05/14/2016 | | Results for this | | | e | 5:13 PM | | procedure are in the | | | | PST | | results section. | + +--------+ + + + | POC GLUCOSE | Routin | 05/14/2016 | | Results for this | | | e | 3:59 PM | | procedure are in the | | | | PST | | results section. | + +--------+ + + + | POC GLUCOSE | Routin | 05/14/2016 | | Results for this | | | e | 2:53 PM | | procedure are in the | | | | PST | | results section. | + +--------+ + + + | POC GLUCOSE | Routin | 05/14/2016 | | Results for this | | | e | 1:50 PM | | procedure are in the | | | | PST | | results section. | + +--------+ + + + | POC GLUCOSE | Routin | 05/14/2016 | | Results for this | | | e | 1:08 PM | | procedure are in the | | | | PST | | results section. | + +--------+ + + + | POC GLUCOSE | Routin | 05/14/2016 | | Results for this | | | e | 11:19 AM | | procedure are in the | | | | PST | | results section. | + +--------+ + + + | POC GLUCOSE | Routin | 05/14/2016 | | Results for this | | | e | 9:01 AM | | procedure are in the | | | | PST | | results section. | + +--------+ + + + | ECHO COMPLETE | Routin | 05/14/2016 | | Results for this | | | e | 8:22 AM | | procedure are in the | | | | PST | | results section. | + +--------+ + + + | MRSA NAAT | Routin | 05/14/2016 | | Results for this | | | e | 6:03 AM | | procedure are in the | | | | PST | | results section. | + +--------+ + + + | POC GLUCOSE | Routin | 05/14/2016 | | Results for this | | | e | 5:48 AM | | procedure are in the | | | | PST | | results section. | + +--------+ + + + | ECG 12 LEAD | Routin | 05/14/2016 | | Results for this | | | e | 4:58 AM | | procedure are in the | | | | PST | | results section. | + +--------+ + + + documented in this encounter Results POC Glucose (05/19/2016 11:30 AM PST) + + + + + + | Component | Value | Ref Range | Performed | Pathologist | | | | | At | Signature | + + + + + + | Glucose, | 262 (H)Comment: Testing | 65 - 99 mg/dL | EXTERNAL | | | Fingerstick | performed at [facility];[address] | | LAB | | | | [address];[place] | | | | | | [address] | | | | + + + + + + + + | Specimen | + + | | + + + +---------+ + + | Performing | Address | City/State/Zipcode | Phone Number | | Organization | | | | + +---------+ + + | EXTERNAL LAB | | | | + +---------+ + + POC Glucose (05/19/2016 5:28 AM PST) + + + + + + | Component | Value | Ref Range | Performed | Pathologist | | | | | At | Signature | + + + + + + | Glucose, | 153 (H)Comment: Testing | 65 - 99 mg/dL | EXTERNAL | | | Fingerstick | performed at [facility];[address] | | LAB | | | | [address];[place] | | | | | | [address] | | | | + + + + + + + + | Specimen | + + | | + + + +---------+ + + | Performing | Address | City/State/Zipcode | Phone Number | | Organization | | | | + +---------+ + + | EXTERNAL LAB | | | | + +---------+ + + POC Glucose (05/18/2016 9:19 PM PST) + + + + + + | Component | Value | Ref Range | Performed | Pathologist | | | | | At | Signature | + + + + + + | Glucose, | 231 (H)Comment: Testing | 65 - 99 mg/dL | EXTERNAL | | | Fingerstick | performed at [facility];[address] | | LAB | | | | [address];[place] | | | | | | [address] | | | | + + + + + + + + | Specimen | + + | | + + + +---------+ + + | Performing | Address | City/State/Zipcode | Phone Number | | Organization | | | | + +---------+ + + | EXTERNAL LAB | | | | + +---------+ + + POC Glucose (05/18/2016 4:19 PM PST) + + + + + + | Component | Value | Ref Range | Performed | Pathologist | | | | | At | Signature | + + + + + + | Glucose, | 203 (H)Comment: Testing | 65 - 99 mg/dL | EXTERNAL | | | Fingerstick | performed at [facility];[address] | | LAB | | | | [address];[place], [place] | | | | | | [address] | | | | + + + + + + + + | Specimen | + + | | + + + +---------+ + + | Performing | Address | City/State/Zipcode | Phone Number | | Organization | | | | + +---------+ + + | EXTERNAL LAB | | | | + +---------+ + + POC Glucose (05/18/2016 11:38 AM PST) + + + + + + | Component | Value | Ref Range | Performed | Pathologist | | | | | At | Signature | + + + + + + | Glucose, | 223 (H)Comment: Testing | 65 - 99 mg/dL | EXTERNAL | | | Fingerstick | performed at [facility];[address] | | LAB | | | | [address];[place] | | | | | | [address] | | | | + + + + + + + + | Specimen | + + | | + + + +---------+ + + | Performing | Address | City/State/Zipcode | Phone Number | | Organization | | | | + +---------+ + + | EXTERNAL LAB | | | | + +---------+ + + POC Glucose (05/18/2016 5:41 AM PST) + + + + + + | Component | Value | Ref Range | Performed | Pathologist | | | | | At | Signature | + + + + + + | Glucose, | 152 (H)Comment: Testing | 65 - 99 mg/dL | EXTERNAL | | | Fingerstick | performed at [facility];[address] | | LAB | | | | [address];[place], [place] | | | | | | [address] | | | | + + + + + + + + | Specimen | + + | | + + + +---------+ + + | Performing | Address | City/State/Zipcode | Phone Number | | Organization | | | | + +---------+ + + | EXTERNAL LAB | | | | + +---------+ + + External Lab: CBC (05/18/2016 5:22 AM PST) + + + + + + | Component | Value | Ref Range | Performed | Pathologist | | | | | At | Signature | + + + + + + | WBC | 10.55Comment: Testing | 3.80 - 11.00 | EXTERNAL | | | | performed at [facility], [address] | K[address] | LAB | | | | [address], | | | | | | [place] [address] | | | | + + + + + + | RED CELL | 4.96Comment: Testing | 4.20 - 5.70 | EXTERNAL | | | COUNT | performed at [facility], [address] | M/[address]L | LAB | | | | [address], | | | | | | [place] [address] | | | | + + + + + + | Hgb | 14.1Comment: Testing | 13.2 - 17.0 | EXTERNAL | | | | performed at [facility], [address] | g/dL | LAB | | | | [address], | | | | | | [place] [address] | | | | + + + + + + | Hematocrit, | 40.8Comment: Testing | 39.0 - 50.0 % | EXTERNAL | | | POC | performed at [facility], [address] | | LAB | | | | [address], | | | | | | [place] [address] | | | | + + + + + + | MCV | 82.3Comment: Testing | 80.0 - 100.0 fl | EXTERNAL | | | | performed at [facility], [address] | | LAB | | | | [address], | | | | | | [place] [address] | | | | + + + + + + | MCH | 28.5Comment: Testing | 27.0 - 34.0 pg | EXTERNAL | | | | performed at [facility], [address] | | LAB | | | | [address], | | | | | | [place] [address] | | | | + + + + + + | MCHC | 34.6Comment: Testing | 32.0 - 35.5 | EXTERNAL | | | | performed at [facility], [address] | g/dL | LAB | | | | [address], | | | | | | [place] [address] | | | | + + + + + + | RDW-CV | 42.0Comment: Testing | 37 - 53 fl | EXTERNAL | | | | performed at [facility], [address] | | LAB | | | | [address], | | | | | | [place] [address] | | | | + + + + + + | Platelet | 219Comment: Testing | 150 - 400 K/uL | EXTERNAL | | | Count | performed at [facility], [address] | | LAB | | | Plasma | [address], | | | | | | [place] [address] | | | | + + + + + + | MPV | 8.6Comment: Testing | fl | EXTERNAL | | | | performed at [facility], [address] | | LAB | | | | [address], | | | | | | [place] [address] | | | | + + + + + + | Differentia | AUTOMATEDComment: | | EXTERNAL | | | l Type | Testing performed at | | LAB | | | | [facility], [address] | | | | | | [place] | | | | | | [address] | | | | + + + + + + | % Segmented | 65.52Comment: Testing | % | EXTERNAL | | | | performed at [facility], [address] | | LAB | | | Neutrophils | [address], | | | | | | [place] [address] | | | | + + + + + + | % | 22.13Comment: Testing | % | EXTERNAL | | | Lymphocytes | performed at [facility], [address] | | LAB | | | | [address], | | | | | | [place] [address] | | | | + + + + + + | % Monocytes | 9.16Comment: Testing | % | EXTERNAL | | | | performed at [facility], [address] | | LAB | | | | [address], | | | | | | [place] [address] | | | | + + + + + + | % | 2.44Comment: Testing | % | EXTERNAL | | | Eosinophils | performed at [facility], [address] | | LAB | | | | [address], | | | | | | [place] [address] | | | | + + + + + + | % Basophils | 0.75Comment: Testing | % | EXTERNAL | | | | performed at [facility], [address] | | LAB | | | | [address], | | | | | | [place] [address] | | | | + + + + + + | Absolute | 6.91Comment: Testing | 1.90 - 7.40 | EXTERNAL | | | Segmented | performed at [facility], [address] | K/uL | LAB | | | Neutrophils | [address], | | | | | | [place] [address] | | | | + + + + + + | Absolute | 2.33Comment: Testing | 1.00 - 3.90 | EXTERNAL | | | Lymphocytes | performed at [facility], [address] | K/[address] | LAB | | | | [address], | | | | | | [place] [address] | | | | + + + + + + | Absolute | 0.97 (H)Comment: Testing | 0.00 - 0.80 | EXTERNAL | | | Monocytes | performed at [facility], [address] | [address] | LAB | | | | [address], | | | | | | [place] [address] | | | | + + + + + + | Absolute | 0.26Comment: Testing | 0.00 - 0.50 | EXTERNAL | | | Eosinophils | performed at [facility], [address] | K/uL | LAB | | | | [address], | | | | | | [place] [address] | | | | + + + + + + | Absolute | 0.08Comment: Testing | 0.00 - 0.10 | EXTERNAL | | | Basophils | performed at [facility], [address] | K/[address] | LAB | | | | [address], | | | | | | [place] [address] | | | | + + + + + + + + | Specimen | + + | Blood specimen | | (specimen) | + + + +---------+ + + | Performing | Address | City/State/Zipcode | Phone Number | | Organization | | | | + +---------+ + + | EXTERNAL LAB | | | | + +---------+ + + Phosphorus (05/18/2016 5:22 AM PST) + + + + + + | Component | Value | Ref Range | Performed | Pathologist | | | | | At | Signature | + + + + + + | PHOSPHORUS | 4.0Comment: Testing | 2.3 - 4.8 mg/dL | EXTERNAL | | | | performed at [facility], [address] | | LAB | | | | [address], | | | | | | [place] [address] | | | | + + + + + + + + | Specimen | + + | Blood specimen | | (specimen) | + + + +---------+ + + | Performing | Address | City/State/Zipcode | Phone Number | | Organization | | | | + +---------+ + + | EXTERNAL LAB | | | | + +---------+ + + Magnesium (05/18/2016 5:22 AM PST) + + + + + + | Component | Value | Ref Range | Performed | Pathologist | | | | | At | Signature | + + + + + + | Magnesium | 2.0Comment: Testing | 1.7 - 2.4 mg/dL | EXTERNAL | | | | performed at [facility], [address] | | LAB | | | | [address], | | | | | | [place] [address] | | | | + + + + + + + + | Specimen | + + | Blood specimen | | (specimen) | + + + +---------+ + + | Performing | Address | City/State/Zipcode | Phone Number | | Organization | | | | + +---------+ + + | EXTERNAL LAB | | | | + +---------+ + + Basic Metabolic Panel (05/18/2016 5:22 AM PST) + + + + + + | Component | Value | Ref Range | Performed | Pathologist | | | | | At | Signature | + + + + + + | Na | 139Comment: Testing | 135 - 145 | EXTERNAL | | | | performed at [facility], [address] | mmol/L | LAB | | | | [address], | | | | | | [place] [address] | | | | + + + + + + | K | 4.1Comment: Testing | 3.5 - 4.9 | EXTERNAL | | | | performed at [facility], [address] | mmol/L | LAB | | | | [address], | | | | | | [place] [address] | | | | + + + + + + | Cl | 104Comment: Testing | 99 - 109 mmol/L | EXTERNAL | | | | performed at [facility], [address] | | LAB | | | | [address], | | | | | | [place] [address] | | | | + + + + + + | CO2 | 27Comment: Testing | 23 - 32 mmol/L | EXTERNAL | | | | performed at [facility], [address] | | LAB | | | | [address], | | | | | | [place] [address] | | | | + + + + + + | Anion Gap | 12Comment: Testing | 5 - 20 mmol/L | EXTERNAL | | | | performed at [facility], [address] | | LAB | | | | [address], | | | | | | [place] [address] | | | | + + + + + + | Glucose, | 143 (H)Comment: Testing | 65 - 99 mg/dL | EXTERNAL | | | Fasting | performed at [facility], [address] | | LAB | | | | [address], | | | | | | [place] [address] | | | | + + + + + + | BUN | 9Comment: Testing | 8 - 25 mg/dL | EXTERNAL | | | | performed at [facility], [address] | | LAB | | | | [address], | | | | | | [place] [address] | | | | + + + + + + | Creatinine | 0.6 (L)Comment: Testing | 0.70 - 1.30 | EXTERNAL | | | | performed at [facility], [address] | mg/dL | LAB | | | | [address], | | | | | | [place] [address] | | | | + + + + + + | BUN/Creatin | 15Comment: Testing | | EXTERNAL | | | ine Ratio | performed at [facility], [address] | | LAB | | | | [address], | | | | | | [place] [address] | | | | + + + + + + | Calcium | 8.6Comment: Testing | 8.5 - 10.5 | EXTERNAL | | | | performed at [facility], [address] | mg/dL | LAB | | | | [address], | | | | | | [place] [address] | | | | + + + + + + | Estimated | >60Comment: GFR <60: | mL/min/1.73m2 | EXTERNAL | | | GFR | CHRONIC KIDNEY DISEASE, | | LAB | | | | IF FOUND OVER A 3 MONTH | | | | | | PERIOD.GFR <15: KIDNEY | | | | | | FAILURE.FOR | | | | | | AMERICANS, MULTIPLY THE | | | | | | CALCULATED GFR BY | | | | | | 1.210.Testing performed | | | | | | at [facility], [address] | | | | | | [address], | | | | | | [place] [address] | | | | + + + + + + + + | Specimen | + + | Blood specimen | | (specimen) | + + + +---------+ + + | Performing | Address | City/State/Zipcode | Phone Number | | Organization | | | | + +---------+ + + | EXTERNAL LAB | | | | + +---------+ + + POC Glucose (05/17/2016 9:05 PM PST) + + + + + + | Component | Value | Ref Range | Performed | Pathologist | | | | | At | Signature | + + + + + + | Glucose, | 172 (H)Comment: Testing | 65 - 99 mg/dL | EXTERNAL | | | Fingerstick | performed at [facility];[address] | | LAB | | | [address];[place], [place] | | | | | | [address] | | | | + + + + + + + + | Specimen | + + | | + + + +---------+ + + | Performing | Address | City/State/Zipcode | Phone Number | | Organization | | | | + +---------+ + + | EXTERNAL LAB | | | | + +---------+ + + POC Glucose (05/17/2016 4:13 PM PST) + + + + + + | Component | Value | Ref Range | Performed | Pathologist | | | | | At | Signature | + + + + + + | Glucose, | 226 (H)Comment: Testing | 65 - 99 mg/dL | EXTERNAL | | | Fingerstick | performed at [facility];[address] | | LAB | | | | [address];[place], [place] | | | | | | [address] | | | | + + + + + + + + | Specimen | + + | | + + + +---------+ + + | Performing | Address | City/State/Zipcode | Phone Number | | Organization | | | | + +---------+ + + | EXTERNAL LAB | | | | + +---------+ + + POC Glucose (05/17/2016 11:30 AM PST) + + + + + + | Component | Value | Ref Range | Performed | Pathologist | | | | | At | Signature | + + + + + + | Glucose, | 294 (H)Comment: Testing | 65 - 99 mg/dL | EXTERNAL | | | Fingerstick | performed at [facility];[address] | | LAB | | | | [address];[place] | | | | | | [address] | | | | + + + + + + + + | Specimen | + + | | + + + +---------+ + + | Performing | Address | City/State/Zipcode | Phone Number | | Organization | | | | + +---------+ + + | EXTERNAL LAB | | | | + +---------+ + + POC Glucose (05/17/2016 5:47 AM PST) + + + + + + | Component | Value | Ref Range | Performed | Pathologist | | | | | At | Signature | + + + + + + | Glucose, | 130 (H)Comment: Testing | 65 - 99 mg/dL | EXTERNAL | | | Fingerstick | performed at [facility];[address] | | LAB | | | | [address];[place] | | | | | | [address] | | | | + + + + + + + + | Specimen | + + | | + + + +---------+ + + | Performing | Address | City/State/Zipcode | Phone Number | | Organization | | | | + +---------+ + + | EXTERNAL LAB | | | | + +---------+ + + External Lab: CBC (05/17/2016 5:25 AM PST) + + + + + + | Component | Value | Ref Range | Performed | Pathologist | | | | | At | Signature | + + + + + + | WBC | 11.20 (H)Comment: | 3.80 - 11.00 | EXTERNAL | | | | Testing performed at | K/uL | LAB | | | | [facility], [address] | | | | | | [place] | | | | | | [address] | | | | + + + + + + | RED CELL | 4.92Comment: Testing | 4.20 - 5.70 | EXTERNAL | | | COUNT | performed at [facility], [address] | M/uL | LAB | | | | [address], | | | | | | [place] [address] | | | | + + + + + + | Hgb | 13.9Comment: Testing | 13.2 - 17.0 | EXTERNAL | | | | performed at [facility], [address] | g/dL | LAB | | | | [address], | | | | | | [place] [address] | | | | + + + + + + | Hematocrit, | 40.8Comment: Testing | 39.0 - 50.0 % | EXTERNAL | | | POC | performed at [facility], [address] | | LAB | | | [address], | | | | | | [place] [address] | | | | + + + + + + | MCV | 83.0Comment: Testing | 80.0 - 100.0 fl | EXTERNAL | | | | performed at [facility], [address] | | LAB | | | | [address], | | | | | | [place] [address] | | | | + + + + + + | MCH | 28.3Comment: Testing | 27.0 - 34.0 pg | EXTERNAL | | | | performed at [facility], [address] | | LAB | | | | [address], | | | | | | [place] [address] | | | | + + + + + + | MCHC | 34.0Comment: Testing | 32.0 - 35.5 | EXTERNAL | | | | performed at [facility], [address] | g/dL | LAB | | | | [address], | | | | | | [place] [address] | | | | + + + + + + | RDW-CV | 42.4Comment: Testing | 37 - 53 fl | EXTERNAL | | | | performed at [facility], [address] | | LAB | | | | [address], | | | | | | [place] [address] | | | | + + + + + + | Platelet | 215Comment: Testing | 150 - 400 K/uL | EXTERNAL | | | Count | performed at [facility], [address] | | LAB | | | Plasma | [address], | | | | | | [place] [address] | | | | + + + + + + | MPV | 8.5Comment: Testing | fl | EXTERNAL | | | | performed at [facility], [address] | | LAB | | | | [address], | | | | | | [place] [address] | | | | + + + + + + | Differentia | AUTOMATEDComment: | | EXTERNAL | | | l Type | Testing performed at | | LAB | | | | [facility], [address] | | | | | | [place] | | | | | | [address] | | | | + + + + + + | % Segmented | 70.19Comment: Testing | % | EXTERNAL | | | | performed at [facility], [address] | | LAB | | | Neutrophils | [address], | | | | | | [place] [address] | | | | + + + + + + | % | 17.93Comment: Testing | % | EXTERNAL | | | Lymphocytes | performed at [facility], [address] | | LAB | | | | [address], | | | | | | [place] [address] | | | | + + + + + + | % Monocytes | 8.97Comment: Testing | % | EXTERNAL | | | | performed at [facility], [address] | | LAB | | | | [address], | | | | | | [place] [address] | | | | + + + + + + | % | 2.27Comment: Testing | % | EXTERNAL | | | Eosinophils | performed at [facility], [address] | | LAB | | | | [address], | | | | | | [place] [address] | | | | + + + + + + | % Basophils | 0.64Comment: Testing | % | EXTERNAL | | | | performed at [facility], [address] | | LAB | | | | [address], | | | | | | [place] [address] | | | | + + + + + + | Absolute | 7.86 (H)Comment: Testing | 1.90 - 7.40 | EXTERNAL | | | Segmented | performed at [facility], [address] | [address] | LAB | | | Neutrophils | [address], | | | | | | [place] [address] | | | | + + + + + + | Absolute | 2.01Comment: Testing | 1.00 - 3.90 | EXTERNAL | | | Lymphocytes | performed at [facility], [address] | [address] | LAB | | | | [address], | | | | | | [place] [address] | | | | + + + + + + | Absolute | 1.01 (H)Comment: Testing | 0.00 - 0.80 | EXTERNAL | | | Monocytes | performed at [facility], [address] | [address] | LAB | | | | [address], | | | | | | [place] [address] | | | | + + + + + + | Absolute | 0.25Comment: Testing | 0.00 - 0.50 | EXTERNAL | | | Eosinophils | performed at [facility], [address] | [address] | LAB | | | | [address], | | | | | | [place] [address] | | | | + + + + + + | Absolute | 0.07Comment: Testing | 0.00 - 0.10 | EXTERNAL | | | Basophils | performed at [facility], [address] | [address] | LAB | | | | [address], | | | | | | [place] [address] | | | | + + + + + + + + | Specimen | + + | Blood specimen | | (specimen) | + + + +---------+ + + | Performing | Address | City/State/Zipcode | Phone Number | | Organization | | | | + +---------+ + + | EXTERNAL LAB | | | | + +---------+ + + Phosphorus (05/17/2016 5:25 AM PST) + + + + + + | Component | Value | Ref Range | Performed | Pathologist | | | | | At | Signature | + + + + + + | PHOSPHORUS | 3.6Comment: Testing | 2.3 - 4.8 mg/dL | EXTERNAL | | | | performed at [facility], [address] | | LAB | | | | [address], | | | | | | [place] [address] | | | | + + + + + + + + | Specimen | + + | Blood specimen | | (specimen) | + + + +---------+ + + | Performing | Address | City/State/Zipcode | Phone Number | | Organization | | | | + +---------+ + + | EXTERNAL LAB | | | | + +---------+ + + Magnesium (05/17/2016 5:25 AM PST) + + + + + + | Component | Value | Ref Range | Performed | Pathologist | | | | | At | Signature | + + + + + + | Magnesium | 2.0Comment: Testing | 1.7 - 2.4 mg/dL | EXTERNAL | | | | performed at [facility], [address] | | LAB | | | | [address], | | | | | | [place] [address] | | | | + + + + + + + + | Specimen | + + | Blood specimen | | (specimen) | + + + +---------+ + + | Performing | Address | City/State/Zipcode | Phone Number | | Organization | | | | + +---------+ + + | EXTERNAL LAB | | | | + +---------+ + + Comprehensive Metabolic Panel (05/17/2016 5:25 AM PST) + + + + + + | Component | Value | Ref Range | Performed | Pathologist | | | | | At | Signature | + + + + + + | Na | 139Comment: Testing | 135 - 145 | EXTERNAL | | | | performed at [facility], [address] | mmol/L | LAB | | | | [address], | | | | | | [place] [address] | | | | + + + + + + | K | 3.9Comment: Testing | 3.5 - 4.9 | EXTERNAL | | | | performed at [facility], [address] | mmol/L | LAB | | | | [address], | | | | | | [place] [address] | | | | + + + + + + | Cl | 103Comment: Testing | 99 - 109 mmol/L | EXTERNAL | | | | performed at [facility], [address] | | LAB | | | | [address], | | | | | | [place] [address] | | | | + + + + + + | CO2 | 25Comment: Testing | 23 - 32 mmol/L | EXTERNAL | | | | performed at [facility], [address] | | LAB | | | | [address], | | | | | | [place] [address] | | | | + + + + + + | Anion Gap | 15Comment: Testing | 5 - 20 mmol/L | EXTERNAL | | | | performed at [facility], [address] | | LAB | | | | [address], | | | | | | [place] [address] | | | | + + + + + + | Glucose, | 132 (H)Comment: Testing | 65 - 99 mg/dL | EXTERNAL | | | Fasting | performed at [facility], [address] | | LAB | | | | [address], | | | | | | [place] [address] | | | | + + + + + + | BUN | 9Comment: Testing | 8 - 25 mg/dL | EXTERNAL | | | | performed at [facility], [address] | | LAB | | | | [address], | | | | | | [place] [address] | | | | + + + + + + | Creatinine | 0.5 (L)Comment: Testing | 0.70 - 1.30 | EXTERNAL | | | | performed at [facility], [address] | mg/dL | LAB | | | | [address], | | | | | | [place] [address] | | | | + + + + + + | BUN/Creatin | 18Comment: Testing | | EXTERNAL | | | ine Ratio | performed at [facility], [address] | | LAB | | | | [address], | | | | | | [place] [address] | | | | + + + + + + | Calcium | 8.4 (L)Comment: Testing | 8.5 - 10.5 | EXTERNAL | | | | performed at [facility], [address] | mg/dL | LAB | | | | [address], | | | | | | [place] [address] | | | | + + + + + + | Protein, | 6.0 (L)Comment: Testing | 6.3 - 8.2 g/dL | EXTERNAL | | | Total | performed at [facility], [address] | | LAB | | | | [address], | | | | | | [place] [address] | | | | + + + + + + | Albumin | 3.0 (L)Comment: Testing | 3.3 - 4.8 g/dL | EXTERNAL | | | | performed at [facility], [address] | | LAB | | | [address], | | | | | | [place] [address] | | | | + + + + + + | Globulin | 3.0Comment: Testing | 1.3 - 4.9 g/dL | EXTERNAL | | | | performed at [facility], [address] | | LAB | | | | [address], | | | | | | [place] [address] | | | | + + + + + + | A/G Ratio | 1.0Comment: Testing | 1.0 - 2.4 | EXTERNAL | | | | performed at [facility], [address] | | LAB | | | | [address], | | | | | | [place] [address] | | | | + + + + + + | Bilirubin | 1.4Comment: Testing | 0.1 - 1.5 mg/dL | EXTERNAL | | | Total | performed at [facility], [address] | | LAB | | | [address], | | | | | | [place] [address] | | | | + + + + + + | ALP, | 77Comment: Testing | 35 - 115 U/L | EXTERNAL | | | External | performed at [facility], [address] | | LAB | | | | [address], | | | | | | [place] [address] | | | | + + + + + + | AST | 14Comment: Testing | 10 - 45 U/L | EXTERNAL | | | | performed at [facility], [address] | | LAB | | | | [address], | | | | | | [place] [address] | | | | + + + + + + | ALT | 13Comment: Testing | 10 - 65 U/L | EXTERNAL | | | | performed at [facility], [address] | | LAB | | | [address], | | | | | | [place] [address] | | | | + + + + + + | Estimated | >60Comment: GFR <60: | mL/min/1.73m2 | EXTERNAL | | | GFR | CHRONIC KIDNEY DISEASE, | | LAB | | | | IF FOUND OVER A 3 MONTH | | | | | | PERIOD.GFR <15: KIDNEY | | | | | | FAILURE.FOR | | | | | | AMERICANS, MULTIPLY THE | | | | | | CALCULATED GFR BY | | | | | | 1.210.Testing performed | | | | | | at [facility], [address] | | | | | [address], | | | | | | [place] [address] | | | | + + + + + + + + | Specimen | + + | Blood specimen | | (specimen) | + + + +---------+ + + | Performing | Address | City/State/Zipcode | Phone Number | | Organization | | | | + +---------+ + + | EXTERNAL LAB | | | | + +---------+ + + POC Glucose (05/16/2016 9:12 PM PST) + + + + + + | Component | Value | Ref Range | Performed | Pathologist | | | | | At | Signature | + + + + + + | Glucose, | 229 (H)Comment: Testing | 65 - 99 mg/dL | EXTERNAL | | | Fingerstick | performed at [facility];[address] | | LAB | | | [address];[place], [place] | | | | | | [address] | | | | + + + + + + + + | Specimen | + + | | + + + +---------+ + + | Performing | Address | City/State/Zipcode | Phone Number | | Organization | | | | + +---------+ + + | EXTERNAL LAB | | | | + +---------+ + + POC Glucose (05/16/2016 4:05 PM PST) + + + + + + | Component | Value | Ref Range | Performed | Pathologist | | | | | At | Signature | + + + + + + | Glucose, | 271 (H)Comment: Testing | 65 - 99 mg/dL | EXTERNAL | | | Fingerstick | performed at [facility];[address] | | LAB | | | | [address];[place] | | | | | | [address] | | | | + + + + + + + + | Specimen | + + | | + + + +---------+ + + | Performing | Address | City/State/Zipcode | Phone Number | | Organization | | | | + +---------+ + + | EXTERNAL LAB | | | | + +---------+ + + Echo Limited (05/16/2016 12:20 PM PST) + + | Specimen | + + | | + + + + + | Impressions | Performed At | + + + | 1. Agitated Saline evaluation for shunt: Inconclusive due to | | | suboptimal images. | | + + + + + + | Narrative | Performed At | + + + | Patient Name: REAGAN SHEPARD Date of : 1945 | | | Performing Physician: Aleksandar Dotson | | | | | | INDICATIONS CVA CONCLUSIONS 1. | | | Agitated Saline evaluation for shunt: Inconclusive due to suboptimal | | | images. FINDINGS -------- ECG rhythm: Sinus rhythm. Study: This | | | was a technically difficult study with suboptimal views. Contrast: | | | Contrast study was performed with 2 iv injections of 8 ccs of agitated | | | normal saline, at rest, and with cough. Contrast: Inconclusive due | | | to suboptimal images. MEASUREMENTS Core Composer Feeder: | | | KVW Authenticated by: Aleksandar Dotson Report Date/Time: 05-16-2016 | | | 20:59:22 | | + + + + + | Procedure Note | + + | Johnson, Rad Conversion - 11/02/2018 6:55 AM PDT Patient Name: Aria SHEPARD of | | : 1945 Performing Physician: Aleksandar | | Mauri INDICATIONS------ | | -----CVA CONCLUSIONS 1. Agitated Saline evaluation for shunt: Inconclusive due | | to suboptimal images. FINDINGS--------ECG rhythm: Sinus rhythm.Study: This was a | | technically difficult study with suboptimal views.Contrast: Contrast study was performed | | with 2 iv injections of 8 ccs of agitated normal saline, at rest, and with | | cough.Contrast: Inconclusive due to suboptimal images. MEASUREMENTS | | Core Composer Feeder: Valentinticated by: Aleksandar Pacheco Date/Time: 05-16-2016 20:59:22 | | IMPRESSION: 1. Agitated Saline evaluation for shunt: Inconclusive due to suboptimal | | images. | | | |CONCLUSIONS | | | |1. Agitated Saline evaluation for shunt: Inconclusive due to suboptimal images. | | | |FINDINGS | |-------- | |ECG rhythm: Sinus rhythm. | |Study: This was a technically difficult study with suboptimal views. | |Contrast: Contrast study was performed with 2 iv injections of 8 ccs of agitated normal tanvir ine, at rest, and with cough. | |Contrast: Inconclusive due to suboptimal images. | | | |MEASUREMENTS | | | | | |Core Composer Feeder: KVW | |Authenticated by: Aleksandar Dotson | |Report Date/Time: 05-16-2016 20:59:22 | | | |IMPRESSION: | |1. Agitated Saline evaluation for shunt: Inconclusive due to suboptimal images. | + + POC Glucose (05/16/2016 11:36 AM PST) + + + + + + | Component | Value | Ref Range | Performed | Pathologist | | | | | At | Signature | + + + + + + | Glucose, | 292 (H)Comment: Testing | 65 - 99 mg/dL | EXTERNAL | | | Fingerstick | performed at [facility];[address] | | LAB | | | | [address];[place], [place] | | | | | | [address] | | | | + + + + + + + + | Specimen | + + | | + + + +---------+ + + | Performing | Address | City/State/Zipcode | Phone Number | | Organization | | | | + +---------+ + + | EXTERNAL LAB | | | | + +---------+ + + CT Angiogram Head and Neck w Contrast (05/16/2016 9:59 AM PST) + + | Specimen | + + | | + + + + + | Impressions | Performed At | + + + | 1. Subtle right pontine hypodensity seen, corresponding to known | | | acute/subacute infarct seen on the previous MRI. 2. Focal moderate | | | atherosclerosis with mild narrowing involving the intracranial right | | | vertebral artery. 3. Utilizing NASCET criteria, there is 71% | | | stenosis of the proximal left internal carotid artery and 65% stenosis | | | involving the proximal right internal carotid artery at the carotid | | | bulbs. 4. Short segment foci of mild atherosclerosis with mild | | | narrowing involving the left vertebral artery. 5. Mild irregularity | | | of the basilar artery which appears patent throughout. | | | | | + + + + + + | Narrative | Performed At | + + + | REAGAN KELSIIRENE 1945 71 years Male CTA HEAD NECK W WO CONTRAST | | | 05/16/2016 9:59 AM INDICATION: Stroke. Carotid stenosis. | | | COMPARISON: MRI brain 05/15/2016. TECHNIQUE: 5-mm axial | | | pre-contrast and post-contrast images of the head were acquired from | | | the foramen magnum through the cranial vertex. Axial 0.625-mm images | | | were acquired from the skull base to the cranial vertex and then axial | | | 1.25 mm arterial phase images were acquired through the neck | | | according to a CT angiography protocol. Multiplanar CT angiographic | | | MIP reconstructions were performed. The data set was also examined | | | with Segopotso 3D software for evaluation of the cerebral vasculature. | | | Radiation dose reduction performed with automated exposure | | | control. IV contrast: 100 mL Isovue-370 FINDINGS: CT HEAD: | | | Subtle hypodensity noted within the right aspect of the bogdan, | | | consistent with known acute/subacute infarct seen on the previous MRI. | | | Diffuse mild bilateral cerebral volume loss. Gore-white | | | differentiation appears to be maintained. Osseous structures appear | | | unremarkable. Mastoid air cells and paranasal sinuses are clear. | | | Orbits appear unremarkable. CT ANGIOGRAM HEAD: Moderate | | | atherosclerosis involving the cavernous portions of the internal | | | carotid arteries with mild narrowing. No narrowing seen involving the | | | middle cerebral arteries. Incidental note is made of an accessory | | | anterior cerebral artery. No narrowing noted involving the anterior | | | cerebral arteries. There is focal moderate atherosclerosis seen | | | with mild narrowing of the intracranial right vertebral artery seen on | | | series 6, image 89. The rest of the vertebral artery appears patent | | | throughout. Short segment foci of mild atherosclerosis noted scattered | | | in the left vertebral artery with mild narrowing. Mild irregularity | | | of the basilar artery which appears patent throughout. No narrowing | | | seen involving the posterior cerebral arteries. No aneurysm seen. | | | CTA NECK: Moderate amount of calcified atherosclerotic plaque seen at | | | the right carotid bulb. Utilizing NASCET criteria there is 65 % | | | stenosis identified involving the proximal right internal carotid | | | artery. Within the left side, moderate amount of calcified and | | | soft plaque seen with 71% stenosis involving the proximal left | | | internal carotid artery utilizing NASCET criteria. Moderate | | | atherosclerosis involving the aortic arch. There is a 2 vessel | | | left-sided aortic arch. No narrowing seen involving the | | | brachiocephalic and the subclavian arteries. No narrowing seen | | | involving the common carotid arteries. No narrowing seen involving | | | the vertebral arteries. Visualized lung apices demonstrate small | | | amount of atelectasis. No acute or destructive osseous process seen. | | | | | + + + + -------+ | Procedure Note | + -------+ | Johnson, Rad Conversion - 11/02/2018 6:55 AM PDT REAGAN [id number] years MaleCTA | | HEAD NECK W WO CONTRAST05/16/2016 9:59 AM INDICATION: Stroke. Carotid stenosis. | | COMPARISON: MRI brain 05/15/2016. TECHNIQUE:5-mm axial pre-contrast and post-contrast | | images of the head were acquired from the foramen magnum through the cranial vertex. | | Axial 0.625-mm images were acquired from the skull base to the cranial vertex and then | | axial 1.25 mm arterial phase images were acquired through the neck according to a CT | | angiography protocol. Multiplanar CT angiographic MIP reconstructions were performed. | | The data set was also examined with Segopotso 3D software for evaluation of the cerebral | | vasculature. Radiation dose reduction performed with automated exposure control.IV | | contrast: 100 mL Isovue-370 FINDINGS: CT HEAD: Subtle hypodensity noted within the right | | aspect of the bogdan, consistent with known acute/subacute infarct seen on the previous | | MRI. Diffuse mild bilateral cerebral volume loss. Gore-white differentiation appears to | | be maintained. Osseous structures appear unremarkable. Mastoid air cells and paranasal | | sinuses are clear. Orbits appear unremarkable. CT ANGIOGRAM HEAD: Moderate | | atherosclerosis involving the cavernous portions of the internal carotid arteries with | | mild narrowing. No narrowing seen involving the middle cerebral arteries. Incidental | | note is made of an accessory anterior cerebral artery. No narrowing noted involving the | | anterior cerebral arteries. There is focal moderate atherosclerosis seen with mild | | narrowing of the intracranial right vertebral artery seen on series 6, image 89. The | | rest of the vertebral artery appears patent throughout. Short segment foci of mild | | atherosclerosis noted scattered in the left vertebral artery with mild narrowing. Mild | | irregularity of the basilar artery which appears patent throughout. No narrowing seen | | involving the posterior cerebral arteries. No aneurysm seen. CTA NECK: Moderate amount | | of calcified atherosclerotic plaque seen at the right carotid bulb. Utilizing NASCET | | criteria there is 65 % stenosis identified involving the proximal right internal carotid | | artery. Within the left side, moderate amount of calcified and soft plaque seen with | | 71% stenosis involving the proximal left internal carotid artery utilizing NASCET | | criteria. Moderate atherosclerosis involving the aortic arch. There is a 2 vessel | | left-sided aortic arch. No narrowing seen involving the brachiocephalic and the | | subclavian arteries. No narrowing seen involving the common carotid arteries. No | | narrowing seen involving the vertebral arteries. Visualized lung apices demonstrate | | small amount of atelectasis. No acute or destructive osseous process seen. IMPRESSION: | | 1. Subtle right pontine hypodensity seen, corresponding to known acute/subacute infarct | | seen on the previous MRI.2. Focal moderate atherosclerosis with mild narrowing | | involving the intracranial right vertebral artery.3. Utilizing NASCET criteria, there | | is 71% stenosis of the proximal left internal carotid artery and 65% stenosis involving | | the proximal right internal carotid artery at the carotid bulbs.4. Short segment foci | | of mild atherosclerosis with mild narrowing involving the left vertebral artery.5. Mild | | irregularity of the basilar artery which appears patent throughout. Electronically | | signed by Armaan Merino MD on 05/16/2016 10:23 AM | |3. Utilizing NASCET criteria, there is 71% stenosis of the proximal left internal carotid artery and 65% stenosis involving the proximal right internal carotid artery at the carotid bulbs. | |4. Short segment foci of mild atherosclerosis with mild narrowing involving the left vert ebral artery. | |5. Mild irregularity of the basilar artery which appears patent throughout. | | | | | + -------+ External Lab: CBC (05/16/2016 5:35 AM PST) + + + + + + | Component | Value | Ref Range | Performed | Pathologist | | | | | At | Signature | + + + + + + | WBC | 12.85 (H)Comment: | 3.80 - 11.00 | EXTERNAL | | | | Testing performed at | K/uL | LAB | | | | [facility], [address] | | | | | | [place] | | | | | | [address] | | | | + + + + + + | RED CELL | 4.77Comment: Testing | 4.20 - 5.70 | EXTERNAL | | | COUNT | performed at [facility], [address] | [address] | LAB | | | | [address], | | | | | | [place] [address] | | | | + + + + + + | Hgb | 13.4Comment: Testing | 13.2 - 17.0 | EXTERNAL | | | | performed at [facility], [address] | g/dL | LAB | | | | [address], | | | | | | [place] [address] | | | | + + + + + + | Hematocrit, | 39.1Comment: Testing | 39.0 - 50.0 % | EXTERNAL | | | POC | performed at [facility], [address] | | LAB | | | | [address], | | | | | | [place] [address] | | | | + + + + + + | MCV | 82.0Comment: Testing | 80.0 - 100.0 fl | EXTERNAL | | | | performed at [facility], [address] | | LAB | | | | [address], | | | | | | [place] [address] | | | | + + + + + + | MCH | 28.0Comment: Testing | 27.0 - 34.0 pg | EXTERNAL | | | | performed at [facility], [address] | | LAB | | | | [address], | | | | | | [place] [address] | | | | + + + + + + | MCHC | 34.1Comment: Testing | 32.0 - 35.5 | EXTERNAL | | | | performed at [facility], [address] | g/dL | LAB | | | | [address], | | | | | | [place] [address] | | | | + + + + + + | RDW-CV | 42.9Comment: Testing | 37 - 53 fl | EXTERNAL | | | | performed at [facility], [address] | | LAB | | | | [address], | | | | | | [place] [address] | | | | + + + + + + | Platelet | 238Comment: Testing | 150 - 400 K/uL | EXTERNAL | | | Count | performed at [facility], [address] | | LAB | | | Plasma | [address], | | | | | | [place] [address] | | | | + + + + + + | MPV | 8.8Comment: Testing | fl | EXTERNAL | | | | performed at [facility], [address] | | LAB | | | | [address], | | | | | | [place] [address] | | | | + + + + + + | Differentia | AUTOMATEDComment: | | EXTERNAL | | | l Type | Testing performed at | | LAB | | | | [facility], [address], [place], [place] | | | | | | [address] | | | | + + + + + + | % Segmented | 68.92Comment: Testing | % | EXTERNAL | | | | performed at [facility], [address] | | LAB | | | Neutrophils | [address], | | | | | | [place] [address] | | | | + + + + + + | % | 18.94Comment: Testing | % | EXTERNAL | | | Lymphocytes | performed at [facility], [address] | | LAB | | | | [address], | | | | | | [place] [address] | | | | + + + + + + | % Monocytes | 10.32Comment: Testing | % | EXTERNAL | | | | performed at [facility], [address] | | LAB | | | | [address], | | | | | | [place] [address] | | | | + + + + + + | % | 1.25Comment: Testing | % | EXTERNAL | | | Eosinophils | performed at [facility], [address] | | LAB | | | | [address], | | | | | | [place] [address] | | | | + + + + + + | % Basophils | 0.57Comment: Testing | % | EXTERNAL | | | | performed at [facility], [address] | | LAB | | | | [address], | | | | | | [place] [address] | | | | + + + + + + | Absolute | 8.86 (H)Comment: Testing | 1.90 - 7.40 | EXTERNAL | | | Segmented | performed at [facility], [address] | [address] | LAB | | | Neutrophils | [address], | | | | | | [place] [address] | | | | + + + + + + | Absolute | 2.44Comment: Testing | 1.00 - 3.90 | EXTERNAL | | | Lymphocytes | performed at [facility], [address] | [address] | LAB | | | | [address], | | | | | | [place] [address] | | | | + + + + + + | Absolute | 1.33 (H)Comment: Testing | 0.00 - 0.80 | EXTERNAL | | | Monocytes | performed at [facility], [address] | [address] | LAB | | | | [address], | | | | | | [place] [address] | | | | + + + + + + | Absolute | 0.16Comment: Testing | 0.00 - 0.50 | EXTERNAL | | | Eosinophils | performed at [facility], [address] | K[address] | LAB | | | | [address], | | | | | | [place] [address] | | | | + + + + + + | Absolute | 0.07Comment: Testing | 0.00 - 0.10 | EXTERNAL | | | Basophils | performed at [facility], [address] | K[address] | LAB | | | | [address], | | | | | | [place] [address] | | | | + + + + + + + + | Specimen | + + | Blood specimen | | (specimen) | + + + +---------+ + + | Performing | Address | City/State/Zipcode | Phone Number | | Organization | | | | + +---------+ + + | EXTERNAL LAB | | | | + +---------+ + + POC Glucose (05/16/2016 5:35 AM PST) + + + + + + | Component | Value | Ref Range | Performed | Pathologist | | | | | At | Signature | + + + + + + | Glucose, | 225 (H)Comment: Testing | 65 - 99 mg/dL | EXTERNAL | | | Fingerstick | performed at [facility];[address] | | LAB | | | | [address];[place] | | | | | | [address] | | | | + + + + + + + + | Specimen | + + | | + + + +---------+ + + | Performing | Address | City/State/Zipcode | Phone Number | | Organization | | | | + +---------+ + + | EXTERNAL LAB | | | | + +---------+ + + Phosphorus (05/16/2016 5:35 AM PST) + + + + + + | Component | Value | Ref Range | Performed | Pathologist | | | | | At | Signature | + + + + + + | PHOSPHORUS | 4.5Comment: SPECIMEN | 2.3 - 4.8 mg/dL | EXTERNAL | | | | SLIGHTLY | | LAB | | | | HEMOLYZEDTesting | | | | | | performed at [facility], [address] | | | | | | [address], | | | | | | [place] [address] | | | | + + + + + + + + | Specimen | + + | Blood specimen | | (specimen) | + + + +---------+ + + | Performing | Address | City/State/Zipcode | Phone Number | | Organization | | | | + +---------+ + + | EXTERNAL LAB | | | | + +---------+ + + Magnesium (05/16/2016 5:35 AM PST) + + + + + + | Component | Value | Ref Range | Performed | Pathologist | | | | | At | Signature | + + + + + + | Magnesium | 2.2Comment: SPECIMEN | 1.7 - 2.4 mg/dL | EXTERNAL | | | | SLIGHTLY | | LAB | | | | HEMOLYZEDTesting | | | | | | performed at [facility], [address] | | | | | | [address], | | | | | | [place] [address] | | | | + + + + + + + + | Specimen | + + | Blood specimen | | (specimen) | + + + +---------+ + + | Performing | Address | City/State/Zipcode | Phone Number | | Organization | | | | + +---------+ + + | EXTERNAL LAB | | | | + +---------+ + + Comprehensive Metabolic Panel (05/16/2016 5:35 AM PST) + + + + + + | Component | Value | Ref Range | Performed | Pathologist | | | | | At | Signature | + + + + + + | Na | 139Comment: Testing | 135 - 145 | EXTERNAL | | | | performed at [facility], [address] | mmol/L | LAB | | | | [address], | | | | | | [place] [address] | | | | + + + + + + | K | 4.2Comment: SPECIMEN | 3.5 - 4.9 | EXTERNAL | | | | SLIGHTLY | mmol/L | LAB | | | | [facility] | | | | | | performed at [facility], [address] | | | | | | [address], | | | | | | [place] [address] | | | | + + + + + + | Cl | 104Comment: Testing | 99 - 109 mmol/L | EXTERNAL | | | | performed at [facility], [address] | | LAB | | | | [address], | | | | | | [place] [address] | | | | + + + + + + | CO2 | 25Comment: Testing | 23 - 32 mmol/L | EXTERNAL | | | | performed at [facility], [address] | | LAB | | | | [address], | | | | | | [place] [address] | | | | + + + + + + | Anion Gap | 14Comment: Testing | 5 - 20 mmol/L | EXTERNAL | | | | performed at [facility], [address] | | LAB | | | | [address], | | | | | | [place] [address] | | | | + + + + + + | Glucose, | 236 (H)Comment: SPECIMEN | 65 - 99 mg/dL | EXTERNAL | | | Fasting | SLIGHTLY | | LAB | | | | [facility] | | | | | | performed at [facility], [address] | | | | | | [address], | | | | | | [place] [address] | | | | + + + + + + | BUN | 9Comment: Testing | 8 - 25 mg/dL | EXTERNAL | | | | performed at [facility], [address] | | LAB | | | | [address], | | | | | | [place] [address] | | | | + + + + + + | Creatinine | 0.7Comment: SPECIMEN | 0.70 - 1.30 | EXTERNAL | | | | SLIGHTLY | mg/dL | LAB | | | | [facility] | | | | | | performed at [facility], [address] | | | | | | [address], | | | | | | [place] [address] | | | | + + + + + + | BUN/Creatin | 13Comment: Testing | | EXTERNAL | | | ine Ratio | performed at [facility], [address] | | LAB | | | | [address], | | | | | | [place] [address] | | | | + + + + + + | Calcium | 8.5Comment: Testing | 8.5 - 10.5 | EXTERNAL | | | | performed at [facility], [address] | mg/dL | LAB | | | | [address], | | | | | | [place] [address] | | | | + + + + + + | Protein, | 5.8 (L)Comment: Testing | 6.3 - 8.2 g/dL | EXTERNAL | | | Total | performed at [facility], [address] | | LAB | | | | [address], | | | | | | [place] [address] | | | | + + + + + + | Albumin | 2.8 (L)Comment: Testing | 3.3 - 4.8 g/dL | EXTERNAL | | | | performed at [facility], [address] | | LAB | | | | [address], | | | | | | [place] [address] | | | | + + + + + + | Globulin | 3.0Comment: Testing | 1.3 - 4.9 g/dL | EXTERNAL | | | | performed at [facility], [address] | | LAB | | | [address], | | | | | | [place] [address] | | | | + + + + + + | A/G Ratio | 0.9 (L)Comment: Testing | 1.0 - 2.4 | EXTERNAL | | | | performed at [facility], [address] | | LAB | | | | [address], | | | | | | [place] [address] | | | | + + + + + + | Bilirubin | 1.7 (H)Comment: SPECIMEN | 0.1 - 1.5 mg/dL | EXTERNAL | | | Total | SLIGHTLY | | LAB | | | | [facility] | | | | | | performed at [facility], [address] | | | | [address], | | | | | | [place] [address] | | | | + + + + + + | ALP, | 77Comment: Testing | 35 - 115 U/L | EXTERNAL | | | External | performed at [facility], [address] | | LAB | | | | [address], | | | | | | [place] [address] | | | | + + + + + + | AST | 18Comment: SPECIMEN | 10 - 45 U/L | EXTERNAL | | | | SLIGHTLY | | LAB | | | | [facility] | | | | | | performed at [facility], [address] | | | | | | [address], | | | | | | [place] [address] | | | | + + + + + + | ALT | 15Comment: SPECIMEN | 10 - 65 U/L | EXTERNAL | | | | SLIGHTLY | | LAB | | | | [facility] | | | | | | performed at [facility], [address] | | | | | | [address], | | | | | | [place] [address] | | | | + + + + + + | Estimated | >60Comment: GFR <60: | mL/min/1.73m2 | EXTERNAL | | | GFR | CHRONIC KIDNEY DISEASE, | | LAB | | | | IF FOUND OVER A 3 MONTH | | | | | | PERIOD.GFR <15: KIDNEY | | | | | | FAILURE.FOR | | | | | | AMERICANS, MULTIPLY THE | | | | | | CALCULATED GFR BY | | | | | | 1.210.Testing performed | | | | | | at [facility], [address] | | | | | | [address], | | | | | | [place] [address] | | | | + + + + + + + + | Specimen | + + | Blood specimen | | (specimen) | + + + +---------+ + + | Performing | Address | City/State/Zipcode | Phone Number | | Organization | | | | + +---------+ + + | EXTERNAL LAB | | | | + +---------+ + + POC Glucose (05/15/2016 9:42 PM PST) + + + + + + | Component | Value | Ref Range | Performed | Pathologist | | | | | At | Signature | + + + + + + | Glucose, | 199 (H)Comment: Testing | 65 - 99 mg/dL | EXTERNAL | | | Fingerstick | performed at [facility];[address] | | LAB | | | | [address];[place] | | | | | | [address] | | | | + + + + + + + + | Specimen | + + | | + + + +---------+ + + | Performing | Address | City/State/Zipcode | Phone Number | | Organization | | | | + +---------+ + + | EXTERNAL LAB | | | | + +---------+ + + POC Glucose (05/15/2016 5:38 PM PST) + + + + + + | Component | Value | Ref Range | Performed | Pathologist | | | | | At | Signature | + + + + + + | Glucose, | 291 (H)Comment: Testing | 65 - 99 mg/dL | EXTERNAL | | | Fingerstick | performed at [facility];[address] | | LAB | | | | [address];[place], [place] | | | | | | [address] | | | | + + + + + + + + | Specimen | + + | | + + + +---------+ + + | Performing | Address | City/State/Zipcode | Phone Number | | Organization | | | | + +---------+ + + | EXTERNAL LAB | | | | + +---------+ + + VAS Carotid Duplex Bilateral (05/15/2016 4:20 PM PST) + + | Specimen | + + | | + + + + + | Impressions | Performed At | + + + | 1. Right ICA: Grade 3 (50-69%). 2. Left ICA: Grade 3 (50-69%). | | | 3. The vertebral arteries demonstrate normal antegrade flow and | | | velocities bilaterally. | | + + + + + + | Narrative | Performed At | + + + | REAGAN SHEPARD US CAROTID DOPPLER, BILATERAL 05/15/2016 4:20 PM | | | HISTORY: 71 years. Male. Stroke TECHNIQUE: Imaging was | | | performed with a linear array transducer. A duplex exam was | | | performed including grayscale, color flow and pulsed wave spectral | | | Doppler techniques. COMPARISON: None. FINDINGS: RIGHT SIDE: | | | Moderate plaque at the carotid bifurcation proximal internal carotid | | | artery. CCA-PROX PSV: 49 (cm/s) CCA-DIST PSV: 69.1 | | | (cm/s) ICA-PROX PSV: 180.9 (cm/s) ICA-MID PSV: 39.7 | | | (cm/s) ICA-DIST PSV: 54.2 (cm/s) ECA-PROX PSV:386.1 | | | (cm/s) VERTEBRAL PSV: 62(cm/s) RATIO ICA/CCA: PSV: 2.6 | | | VERTEBRAL FLOW:antegrade flow LEFT SIDE: Mild to moderate | | | heterogeneous plaque the left carotid bifurcation and proximal | | | internal carotid artery. CCA-PROX PSV: 83.3 (cm/s) CCA-DIST | | | PSV: 69.4 (cm/s) ICA-PROX PSV: 230.2 (cm/s) ICA-MID | | | PSV: 72.1 (cm/s) ICA-DIST PSV: 55.6 (cm/s) ECA-PROX | | | PSV: 263.8 (cm/s) VERTEBRAL PSV:47(cm/s) RATIO ICA/CCA: | | | PSV:3.3 VERTEBRAL FLOW:antegrade flow Moderate narrowing of the | | | proximal bilateral external carotid arteries, greater on the right | | | side. GRADING SYSTEM: Grade 1: Normal PSV <125 cm/s (No | | | visible plaque or intimal thickening) Grade 2: <50% PSV <125 cm/s | | | (Visible plaque or intimal thickening) Grade 3: 50-69% PSV >125 | | | cm/s (Visible plaque) Grade 4: > or =70% to near occlusion PSV | | | >230 cm/s (Visible plaque) Grade 5: Near Occlusion (Markedly narrowed | | | lumen at color Doppler US) Grade 6: Total Occlusion (No detectable | | | patent lumen at gore-scale US and no flow at spectral, power, and | | | color Doppler US) validated velocity measurements with | | | angiographic measurements, velocity criteria are extrapolated from | | | diameter data as defined by the Society of Radiologists in Ultrasound | | | Consensus Conference Radiology 2003; 229; 340-346. | | + + + + + | Procedure Note | + + | Eliel Ornelas Conversion - 11/02/2018 6:55 AM PATRICIA PIERSON CAROTID DOPPLER, | | BILATERAL05/15/2016 4:20 PM HISTORY:71 years. Male. Stroke TECHNIQUE:Imaging was | | performed with a linear array transducer. A duplex exam was performed including | | grayscale, color flow and pulsed wave spectral Doppler techniques. COMPARISON:None. | | FINDINGS:RIGHT SIDE:Moderate plaque at the carotid bifurcation proximal internal carotid | | artery. CCA-PROX PSV: 49 (cm/s)CCA-DIST PSV: 69.1 (cm/s)ICA-PROX PSV: 180.9 | | (cm/s)ICA-MID PSV: 39.7 (cm/s)ICA-DIST PSV: 54.2 (cm/s)ECA-PROX PSV:386.1 | | (cm/s)VERTEBRAL PSV: 62(cm/s)RATIO ICA/CCA: PSV: 2.6VERTEBRAL FLOW:antegrade flow | | LEFT SIDE:Mild to moderate heterogeneous plaque the left carotid bifurcation and | | proximal internal carotid artery. CCA-PROX PSV: 83.3 (cm/s)CCA-DIST PSV: 69.4 | | (cm/s)ICA-PROX PSV: 230.2 (cm/s)ICA-MID PSV: 72.1 (cm/s)ICA-DIST PSV: 55.6 | | (cm/s)ECA-PROX PSV: 263.8 (cm/s)VERTEBRAL PSV:47(cm/s)RATIO ICA/CCA: | | PSV:3.3VERTEBRAL FLOW:antegrade flow Moderate narrowing of the proximal bilateral | | external carotid arteries, greater on the right side. GRADING SYSTEM:Grade 1: Normal | | PSV <125 cm/s (No visible plaque or intimal thickening)Grade 2: <50% PSV <125 cm/s | | (Visible plaque or intimal thickening)Grade 3: 50-69% PSV >125 cm/s (Visible | | plaque)Grade 4: > or =70% to near occlusion PSV >230 cm/s (Visible plaque)Grade 5: | | Near Occlusion (Markedly narrowed lumen at color Doppler US)Grade 6: Total Occlusion (No | | detectable patent lumen at gore-scale US and no flow at spectral, power, and color | | Doppler US) validated velocity measurements with angiographic measurements, velocity | | criteria are extrapolated from diameter data as defined by the Society of Radiologists | | in Ultrasound Consensus Conference Radiology 2003; 229; 340-346. IMPRESSION: 1. Right | | ICA: Grade 3 (50-69%).2. Left ICA: Grade 3 (50-69%).3. The vertebral arteries | | demonstrate normal antegrade flow and velocities bilaterally. | |VERTEBRAL FLOW:antegrade flow | | | |LEFT SIDE: | |Mild to moderate heterogeneous plaque the left carotid bifurcation and proximal internal ca rotid artery. | | | |CCA-PROX PSV: 83.3 (cm/s) | |CCA-DIST PSV: 69.4 (cm/s) | |ICA-PROX PSV: 230.2 (cm/s) | |ICA-MID PSV: 72.1 (cm/s) | |ICA-DIST PSV: 55.6 (cm/s) | |ECA-PROX PSV: 263.8 (cm/s) | |VERTEBRAL PSV:47(cm/s) | |RATIO ICA/CCA: PSV:3.3 | |VERTEBRAL FLOW:antegrade flow | | | |Moderate narrowing of the proximal bilateral external carotid arteries, greater on the righ t side. | | | |GRADING SYSTEM: | |Grade 1: Normal PSV <125 cm/s (No visible plaque or intimal thickening) | |Grade 2: <50% PSV <125 cm/s (Visible plaque or intimal thickening) | |Grade 3: 50-69% PSV >125 cm/s (Visible plaque) | |Grade 4: > or =70% to near occlusion PSV >230 cm/s (Visible plaque) | |Grade 5: Near Occlusion (Markedly narrowed lumen at color Doppler US) | |Grade 6: Total Occlusion (No detectable patent lumen at gore-scale US and no flow at spectr al, power, and color Doppler US) | | | |validated velocity measurements with angiographic measurements, velocity criteria are extra polated from diameter data as defined by the Society of Radiologists in Ultrasound Consensus Conference Radiology 2003; 229; 340-346. | | | |IMPRESSION: | |1. Right ICA: Grade 3 (50-69%). | |2. Left ICA: Grade 3 (50-69%). | |3. The vertebral arteries demonstrate normal antegrade flow and velocities bilaterally. | | | | | + + Potassium (05/15/2016 12:49 PM PST) + + + + + + | Component | Value | Ref Range | Performed | Pathologist | | | | | At | Signature | + + + + + + | K | 4.2Comment: Testing | 3.5 - 4.9 | EXTERNAL | | | | performed at [facility], [address] | mmol/L | LAB | | | | [address], | | | | | | [place] [address] | | | | + + + + + + + + | Specimen | + + | Blood specimen | | (specimen) | + + + +---------+ + + | Performing | Address | City/State/Zipcode | Phone Number | | Organization | | | | + +---------+ + + | EXTERNAL LAB | | | | + +---------+ + + POC Glucose (05/15/2016 11:42 AM PST) + + + + + + | Component | Value | Ref Range | Performed | Pathologist | | | | | At | Signature | + + + + + + | Glucose, | 244 (H)Comment: Testing | 65 - 99 mg/dL | EXTERNAL | | | Fingerstick | performed at [facility];[address] | | LAB | | | | [address];[place] | | | | | | [address] | | | | + + + + + + + + | Specimen | + + | | + + + +---------+ + + | Performing | Address | City/State/Zipcode | Phone Number | | Organization | | | | + +---------+ + + | EXTERNAL LAB | | | | + +---------+ + + MRI Brain Wo MRA Head Wo (05/15/2016 10:47 AM PST) + + | Specimen | + + | | + + + + + | Impressions | Performed At | + + + | 1. Acute infarction in the right bogdan, as above. 2. Mild | | | diffuse atrophy and minimal chronic microvascular disease noted. 3. 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 4. Multifocal intracranial | | | arterial stenoses, as above. | | + + + + + + | Narrative | Performed At | + + + | REAGAN BIA MRI BRAIN WO AND MRA HEAD 05/15/2016 10:47 AM | | | HISTORY: Stroke. Status post TPA administration. TECHNIQUE: | | | Multiplanar MR imaging was performed through the brain without | | | gadolinium. 3-D lruz-fx-[id number] MR angiography was also performed to | | | the brain. A sagittal T2 FLAIR sequences could not be completed as the | | | patient refused further imaging. FINDINGS: Compared to a head CT | | | of 05/14/2016. Scans are somewhat compromised by patient motion. | | | There is restricted diffusion within the right bogdan, consistent | | | with an acute infarction that measures 8.8 x 13.8 mm on series 4 image | | | 42. There is a focus of hemosiderin in the left cerebellum measuring | | | 11 mm on series 6 image 18, consistent with an old hemorrhage. | | | No midline shift. There is mild diffuse enlargement of ventricles and | | | sulci, consistent with mild diffuse atrophy. There are a few foci | | | of T2 hyperintensity in the deep white matter, probably minimal | | | chronic microvascular disease in view of the patient's age. MRA: | | | There are multifocal mild to moderate stenoses of both vertebral | | | arteries. There are multifocal high-grade stenoses of the right | | | posterior cerebral artery. There is a mild to moderate stenosis | | | involving the lower basilar artery. There is a mild to moderate | | | stenosis of the left internal carotid artery at the skull base. There | | | is mild stenosis of the left internal carotid artery siphon. | | + + + + + | Procedure Note | + + | Eliel Ornelas Conversion - 11/02/2018 6:55 AM PATRICIA MEHTA BRAIN WO AND MRA | | HEAD05/15/2016 10:47 AM HISTORY:Stroke. Status post TPA administration. | | TECHNIQUE:Multiplanar MR imaging was performed through the brain without gadolinium. 3-D | | ojhl-yw-ilkrbw MR angiography was also performed to the brain. A sagittal T2 FLAIR | | sequences could not be completed as the patient refused further imaging. | | FINDINGS:Compared to a head CT of 05/14/2016. Scans are somewhat compromised by patient | | motion. There is restricted diffusion within the right bogdan, consistent with an acute | | infarction that measures 8.8 x 13.8 mm on series 4 image 42. There is a focus of | | hemosiderin in the left cerebellum measuring 11 mm on series 6 image 18, consistent with | | an old hemorrhage. No midline shift. There is mild diffuse enlargement of ventricles | | and sulci, consistent with mild diffuse atrophy. There are a few foci of T2 | | hyperintensity in the deep white matter, probably minimal chronic microvascular disease | | in view of the patient's age. MRA: There are multifocal mild to moderate stenoses of | | both vertebral arteries. There are multifocal high-grade stenoses of the right posterior | | cerebral artery. There is a mild to moderate stenosis involving the lower basilar | | artery. There is a mild to moderate stenosis of the left internal carotid artery at the | | skull base. There is mild stenosis of the left internal carotid artery siphon. | | IMPRESSION: 1. Acute infarction in the right bogdan, as above.2. Mild diffuse atrophy | | and minimal chronic microvascular disease noted.3. Old hemorrhage in the left | | cerebellum.4. Multifocal intracranial arterial stenoses, as above. Electronically | | signed by Lucas Enciso MD on 05/15/2016 11:03 AM | |There are a few foci of T2 hyperintensity in the deep white matter, probably minimal chroni c microvascular disease in view of the patient's age. | | | |MRA: There are multifocal mild to moderate stenoses of both vertebral arteries. There are m ultifocal high-grade stenoses of the right posterior cerebral artery. There is a mild to mod erate stenosis involving the lower | |basilar artery. There is a mild to | |moderate stenosis of the left internal carotid artery at the skull base. There is mild sten osis of the left internal carotid artery siphon. | | | |IMPRESSION: | |1. Acute infarction in the right bogdan, as above. | |2. Mild diffuse atrophy and minimal chronic microvascular disease noted. | |3. 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 | |4. Multifocal intracranial arterial stenoses, as above. | | | | | + + POC Glucose (05/15/2016 9:11 AM PST) + + + + + + | Component | Value | Ref Range | Performed | Pathologist | | | | | At | Signature | + + + + + + | Glucose, | 263 (H)Comment: Testing | 65 - 99 mg/dL | EXTERNAL | | | Fingerstick | performed at [facility];[address] | | LAB | | | | [address];[place], [place] | | | | | | [address] | | | | + + + + + + + + | Specimen | + + | | + + + +---------+ + + | Performing | Address | City/State/Zipcode | Phone Number | | Organization | | | | + +---------+ + + | EXTERNAL LAB | | | | + +---------+ + + POC Glucose (05/15/2016 7:54 AM PST) + + + + + + | Component | Value | Ref Range | Performed | Pathologist | | | | | At | Signature | + + + + + + | Glucose, | 192 (H)Comment: Testing | 65 - 99 mg/dL | EXTERNAL | | | Fingerstick | performed at [facility];[address] | | LAB | | | [address];[place] | | | | | | [address] | | | | + + + + + + + + | Specimen | + + | | + + + +---------+ + + | Performing | Address | City/State/Zipcode | Phone Number | | Organization | | | | + +---------+ + + | EXTERNAL LAB | | | | + +---------+ + + POC Glucose (05/15/2016 5:10 AM PST) + + + + + + | Component | Value | Ref Range | Performed | Pathologist | | | | | At | Signature | + + + + + + | Glucose, | 137 (H)Comment: Testing | 65 - 99 mg/dL | EXTERNAL | | | Fingerstick | performed at [facility];[address] | | LAB | | | | [address];[place] | | | | | | [address] | | | | + + + + + + + + | Specimen | + + | | + + + +---------+ + + | Performing | Address | City/State/Zipcode | Phone Number | | Organization | | | | + +---------+ + + | EXTERNAL LAB | | | | + +---------+ + + POC Glucose (05/15/2016 4:02 AM PST) + + + + + + | Component | Value | Ref Range | Performed | Pathologist | | | | | At | Signature | + + + + + + | Glucose, | 118 (H)Comment: Testing | 65 - 99 mg/dL | EXTERNAL | | | Fingerstick | performed at [facility];[address] | | LAB | | | | [address];[place] | | | | | | [address] | | | | + + + + + + + + | Specimen | + + | | + + + +---------+ + + | Performing | Address | City/State/Zipcode | Phone Number | | Organization | | | | + +---------+ + + | EXTERNAL LAB | | | | + +---------+ + + External Lab: CBC (05/15/2016 3:59 AM PST) + + + + + + | Component | Value | Ref Range | Performed | Pathologist | | | | | At | Signature | + + + + + + | WBC | 14.87 (H)Comment: | 3.80 - 11.00 | EXTERNAL | | | | Testing performed at | K/uL | LAB | | | | [facility], [address] [facility] | | | | | | [place] | | | | | | [address] | | | | + + + + + + | RED CELL | 5.01Comment: Testing | 4.20 - 5.70 | EXTERNAL | | | COUNT | performed at [facility], [address] | M/uL | LAB | | | | [address], | | | | | | [place] [address] | | | | + + + + + + | Hgb | 14.0Comment: Testing | 13.2 - 17.0 | EXTERNAL | | | | performed at [facility], [address] | g/dL | LAB | | | | [address], | | | | | | [place] [address] | | | | + + + + + + | Hematocrit, | 40.8Comment: Testing | 39.0 - 50.0 % | EXTERNAL | | | POC | performed at [facility], [address] | | LAB | | | | [address], | | | | | | [place] [address] | | | | + + + + + + | MCV | 81.5Comment: Testing | 80.0 - 100.0 fl | EXTERNAL | | | | performed at [facility], [address] | | LAB | | | | [address], | | | | | | [place] [address] | | | | + + + + + + | MCH | 27.9Comment: Testing | 27.0 - 34.0 pg | EXTERNAL | | | | performed at [facility], [address] | | LAB | | | | [address], | | | | | | [place] [address] | | | | + + + + + + | MCHC | 34.2Comment: Testing | 32.0 - 35.5 | EXTERNAL | | | | performed at [facility], [address] | g/dL | LAB | | | | [address], | | | | | | [place] [address] | | | | + + + + + + | RDW-CV | 42.0Comment: Testing | 37 - 53 fl | EXTERNAL | | | | performed at [facility], [address] | | LAB | | | | [address], | | | | | | [place] [address] | | | | + + + + + + | Platelet | 257Comment: Testing | 150 - 400 K/uL | EXTERNAL | | | Count | performed at [facility], [address] | | LAB | | | Plasma | [address], | | | | | | [place] [address] | | | | + + + + + + | MPV | 8.4Comment: Testing | fl | EXTERNAL | | | | performed at [facility], [address] | | LAB | | | | [address], | | | | | | [place] [address] | | | | + + + + + + | Differentia | AUTOMATEDComment: | | EXTERNAL | | | l Type | Testing performed at | | LAB | | | | [facility], [address] | | | | | | [place] | | | | | | [address] | | | | + + + + + + | % Segmented | 72.88Comment: Testing | % | EXTERNAL | | | | performed at [facility], [address] | | LAB | | | Neutrophils | [address], | | | | | | [place] [address] | | | | + + + + + + | % | 17.64Comment: Testing | % | EXTERNAL | | | Lymphocytes | performed at [facility], [address] | | LAB | | | | [address], | | | | | | [place] [address] | | | | + + + + + + | % Monocytes | 8.16Comment: Testing | % | EXTERNAL | | | | performed at [facility], [address] | | LAB | | | | [address], | | | | | | [place] [address] | | | | + + + + + + | % | 1.06Comment: Testing | % | EXTERNAL | | | Eosinophils | performed at [facility], [address] | | LAB | | | | [address], | | | | | | [place] [address] | | | | + + + + + + | % Basophils | 0.26Comment: Testing | % | EXTERNAL | | | | performed at [facility], [address] | | LAB | | | | [address], | | | | | | [place] [address] | | | | + + + + + + | Absolute | 10.84 (H)Comment: | 1.90 - 7.40 | EXTERNAL | | | Segmented | Testing performed at | K/uL | LAB | | | Neutrophils | [facility], [address] | | | | | | [place] | | | | | | [address] | | | | + + + + + + | Absolute | 2.62Comment: Testing | 1.00 - 3.90 | EXTERNAL | | | Lymphocytes | performed at [facility], [address] | K/uL | LAB | | | | [address], | | | | | | [place] [address] | | | | + + + + + + | Absolute | 1.21 (H)Comment: Testing | 0.00 - 0.80 | EXTERNAL | | | Monocytes | performed at [facility], [address] | K/uL | LAB | | | | [address], | | | | | | [place] [address] | | | | + + + + + + | Absolute | 0.16Comment: Testing | 0.00 - 0.50 | EXTERNAL | | | Eosinophils | performed at [facility], [address] | K/uL | LAB | | | | [address], | | | | | | [place] [address] | | | | + + + + + + | Absolute | 0.04Comment: Testing | 0.00 - 0.10 | EXTERNAL | | | Basophils | performed at [facility], [address] | K/uL | LAB | | | | [address], | | | | | | [place] [address] | | | | + + + + + + + + | Specimen | + + | Blood specimen | | (specimen) | + + + +---------+ + + | Performing | Address | City/State/Zipcode | Phone Number | | Organization | | | | + +---------+ + + | EXTERNAL LAB | | | | + +---------+ + + Phosphorus (05/15/2016 3:59 AM PST) + + + + + + | Component | Value | Ref Range | Performed | Pathologist | | | | | At | Signature | + + + + + + | PHOSPHORUS | 3.0Comment: Testing | 2.3 - 4.8 mg/dL | EXTERNAL | | | | performed at [facility], [address] | LAB | | | | [address], | | | | | | [place] [address] | | | | + + + + + + + + | Specimen | + + | Blood specimen | | (specimen) | + + + +---------+ + + | Performing | Address | City/State/Zipcode | Phone Number | | Organization | | | | + +---------+ + + | EXTERNAL LAB | | | | + +---------+ + + Magnesium (05/15/2016 3:59 AM PST) + + + + + + | Component | Value | Ref Range | Performed | Pathologist | | | | | At | Signature | + + + + + + | Magnesium | 1.8Comment: Testing | 1.7 - 2.4 mg/dL | EXTERNAL | | | | performed at [facility], [address] | | LAB | | | | [address], | | | | | | [place] [address] | | | | + + + + + + + + | Specimen | + + | Blood specimen | | (specimen) | + + + +---------+ + + | Performing | Address | City/State/Zipcode | Phone Number | | Organization | | | | + +---------+ + + | EXTERNAL LAB | | | | + +---------+ + + Hemoglobin A1C (05/15/2016 3:59 AM PST) + + + + + + | Component | Value | Ref Range | Performed | Pathologist | | | | | At | Signature | + + + + + + | Hemoglobin | 14.7 (H)Comment: The | 4.0 - 6.0 % | EXTERNAL | | | A1c | [place] [employer] | | LAB | | | | Association considers a | | | | | | hemoglobin A1c result of | | | | | | <7.0% to be the goal of | | | | | | diabetic therapy. | | | | | | When results are | | | | | | consistently >8.0%, the | | | | | | ADA suggests | | | | | | reevaluation of the | | | | | | treatment regimen. The | | | | | | testing method used is | | | | | | certified traceable to | | | | | | the Diabetes Control and | | | | | | Complications Trial | | | | | | reference method.Testing | | | | | | performed at [facility], [address], | | | | | | [place] [address] | | | | + + + + + + | Glycohemogl | 375Comment: The ADA | mg/dL | EXTERNAL | | | obin | considers an eAG result | | LAB | | | (GHb),Total | of LT 154 mg/dL to be | | | | | | the goal of diabetic | | | | | | therapy. Estimated | | | | | | Average Glucose | | | | | | calculated from | | | | | | hemoglobin A1c by use of | | | | | | the ADA recommended | | | | | | formula.Testing | | | | | | performed at [facility], [address] | | | | | | [address], | | | | | | [place] [address] | | | | + + + + + + + + | Specimen | + + | Blood specimen | | (specimen) | + + + +---------+ + + | Performing | Address | City/State/Zipcode | Phone Number | | Organization | | | | + +---------+ + + | EXTERNAL LAB | | | | + +---------+ + + Lipid Panel (05/15/2016 3:59 AM PST) + + + + + + | Component | Value | Ref Range | Performed | Pathologist | | | | | At | Signature | + + + + + + | Cholesterol | 108Comment: Testing | mg/dL | EXTERNAL | | | | performed at [facility], [address] | | LAB | | | | [address], | | | | | | [place] [address] | | | | + + + + + + | Triglycerid | 152 (H)Comment: Testing | mg/dL | EXTERNAL | | | es | performed at [facility], [address] | | LAB | | | | [address], | | | | | | [place] [address] | | | | + + + + + + | HDL | 31 (L)Comment: Testing | mg/dL | EXTERNAL | | | | performed at [facility], [address] | | LAB | | | | [address], | | | | | | [place] [address] | | | | + + + + + + | LDL | 47Comment: Testing | mg/dL | EXTERNAL | | | Cholesterol | performed at [facility], [address] | | LAB | | | , | [address], | | | | | Calculated, | [place] [address] | | | | | External | | | | | + + + + + + + + | Specimen | + + | Blood specimen | | (specimen) | + + + +---------+ + + | Performing | Address | City/State/Zipcode | Phone Number | | Organization | | | | + +---------+ + + | EXTERNAL LAB | | | | + +---------+ + + Basic Metabolic Panel (05/15/2016 3:59 AM PST) + + + + + + | Component | Value | Ref Range | Performed | Pathologist | | | | | At | Signature | + + + + + + | Na | 138Comment: Testing | 135 - 145 | EXTERNAL | | | | performed at [facility], [address] | mmol/L | LAB | | | | [address], | | | | | | [place] [address] | | | | + + + + + + | K | 3.3 (L)Comment: Testing | 3.5 - 4.9 | EXTERNAL | | | | performed at [facility], [address] | mmol/L | LAB | | | | [address], | | | | | | [place] [address] | | | | + + + + + + | Cl | 104Comment: Testing | 99 - 109 mmol/L | EXTERNAL | | | | performed at [facility], [address] | | LAB | | | | [address], | | | | | | [place] [address] | | | | + + + + + + | CO2 | 25Comment: Testing | 23 - 32 mmol/L | EXTERNAL | | | | performed at [facility], [address] | | LAB | | | | [address], | | | | | | [place] [address] | | | | + + + + + + | Anion Gap | 12Comment: Testing | 5 - 20 mmol/L | EXTERNAL | | | | performed at [facility], [address] | | LAB | | | | [address], | | | | | | [place] [address] | | | | + + + + + + | Glucose, | 125 (H)Comment: Testing | 65 - 99 mg/dL | EXTERNAL | | | Fasting | performed at [facility], [address] | | LAB | | | | [address], | | | | | | [place] [address] | | | | + + + + + + | BUN | 11Comment: Testing | 8 - 25 mg/dL | EXTERNAL | | | | performed at [facility], [address] | | LAB | | | | [address], | | | | | | [place] [address] | | | | + + + + + + | Creatinine | 0.7Comment: Testing | 0.70 - 1.30 | EXTERNAL | | | | performed at [facility], [address] | mg/dL | LAB | | | | [address], | | | | | | [place] [address] | | | | + + + + + + | BUN/Creatin | 16Comment: Testing | | EXTERNAL | | | ine Ratio | performed at [facility], [address] | | LAB | | | | [address], | | | | | | [place] [address] | | | | + + + + + + | Calcium | 8.3 (L)Comment: Testing | 8.5 - 10.5 | EXTERNAL | | | | performed at [facility], [address] | mg/dL | LAB | | | | [address], | | | | | | [place] [address] | | | | + + + + + + | Estimated | >60Comment: GFR <60: | mL/min/1.73m2 | EXTERNAL | | | GFR | CHRONIC KIDNEY DISEASE, | | LAB | | | | IF FOUND OVER A 3 MONTH | | | | | | PERIOD.GFR <15: KIDNEY | | | | | | FAILURE.FOR | | | | | | AMERICANS, MULTIPLY THE | | | | | | CALCULATED GFR BY | | | | | | 1.210.Testing performed | | | | | | at [facility], [address] | | | | | | [address], | | | | | | [place] [address] | | | | + + + + + + + + | Specimen | + + | Blood specimen | | (specimen) | + + + +---------+ + + | Performing | Address | City/State/Zipcode | Phone Number | | Organization | | | | + +---------+ + + | EXTERNAL LAB | | | | + +---------+ + + POC Glucose (05/15/2016 2:44 AM PST) + + + + + + | Component | Value | Ref Range | Performed | Pathologist | | | | | At | Signature | + + + + + + | Glucose, | 140 (H)Comment: Testing | 65 - 99 mg/dL | EXTERNAL | | | Fingerstick | performed at [facility];[address] | | LAB | | | | [address];[place] | | | | | | [address] | | | | + + + + + + + + | Specimen | + + | | + + + +---------+ + + | Performing | Address | City/State/Zipcode | Phone Number | | Organization | | | | + +---------+ + + | EXTERNAL LAB | | | | + +---------+ + + POC Glucose (05/15/2016 1:38 AM PST) + + + + + + | Component | Value | Ref Range | Performed | Pathologist | | | | | At | Signature | + + + + + + | Glucose, | 152 (H)Comment: Testing | 65 - 99 mg/dL | EXTERNAL | | | Fingerstick | performed at [facility];[address] | | LAB | | | | [address];[place] | | | | | | [address] | | | | + + + + + + + + | Specimen | + + | | + + + +---------+ + + | Performing | Address | City/State/Zipcode | Phone Number | | Organization | | | | + +---------+ + + | EXTERNAL LAB | | | | + +---------+ + + POC Glucose (05/15/2016 12:37 AM PST) + + + + + + | Component | Value | Ref Range | Performed | Pathologist | | | | | At | Signature | + + + + + + | Glucose, | 137 (H)Comment: Testing | 65 - 99 mg/dL | EXTERNAL | | | Fingerstick | performed at [facility];[address] | | LAB | | | | [address];[place] | | | | | | [address] | | | | + + + + + + + + | Specimen | + + | | + + + +---------+ + + | Performing | Address | City/State/Zipcode | Phone Number | | Organization | | | | + +---------+ + + | EXTERNAL LAB | | | | + +---------+ + + POC Glucose (05/14/2016 11:28 PM PST) + + + + + + | Component | Value | Ref Range | Performed | Pathologist | | | | | At | Signature | + + + + + + | Glucose, | 109 (H)Comment: Testing | 65 - 99 mg/dL | EXTERNAL | | | Fingerstick | performed at [facility];[address] | | LAB | | | | [address];[place] | | | | | | [address] | | | | + + + + + + + + | Specimen | + + | | + + + +---------+ + + | Performing | Address | City/State/Zipcode | Phone Number | | Organization | | | | + +---------+ + + | EXTERNAL LAB | | | | + +---------+ + + POC Glucose (05/14/2016 10:22 PM PST) + + + + + + | Component | Value | Ref Range | Performed | Pathologist | | | | | At | Signature | + + + + + + | Glucose, | 225 (H)Comment: Testing | 65 - 99 mg/dL | EXTERNAL | | | Fingerstick | performed at [facility];[address] | | LAB | | | | [address];[place], [place] | | | | | | [address] | | | | + + + + + + + + | Specimen | + + | | + + + +---------+ + + | Performing | Address | City/State/Zipcode | Phone Number | | Organization | | | | + +---------+ + + | EXTERNAL LAB | | | | + +---------+ + + POC Glucose (05/14/2016 9:17 PM PST) + + + + + + | Component | Value | Ref Range | Performed | Pathologist | | | | | At | Signature | + + + + + + | Glucose, | 181 (H)Comment: Testing | 65 - 99 mg/dL | EXTERNAL | | | Fingerstick | performed at [facility];[address] | | LAB | | | | [address];[place], [place] | | | | | | [address] | | | | + + + + + + + + | Specimen | + + | | + + + +---------+ + + | Performing | Address | City/State/Zipcode | Phone Number | | Organization | | | | + +---------+ + + | EXTERNAL LAB | | | | + +---------+ + + POC Glucose (05/14/2016 8:04 PM PST) + + + + + + | Component | Value | Ref Range | Performed | Pathologist | | | | | At | Signature | + + + + + + | Glucose, | 135 (H)Comment: Testing | 65 - 99 mg/dL | EXTERNAL | | | Fingerstick | performed at [facility];[address] | | LAB | | | | [address];[place], [place] | | | | | | [address] | | | | + + + + + + + + | Specimen | + + | | + + + +---------+ + + | Performing | Address | City/State/Zipcode | Phone Number | | Organization | | | | + +---------+ + + | EXTERNAL LAB | | | | + +---------+ + + POC Glucose (05/14/2016 6:40 PM PST) + + + + + + | Component | Value | Ref Range | Performed | Pathologist | | | | | At | Signature | + + + + + + | Glucose, | 251 (H)Comment: Testing | 65 - 99 mg/dL | EXTERNAL | | | Fingerstick | performed at [facility];[address] | | LAB | | | | [address];[place] | | | | | | [address] | | | | + + + + + + + + | Specimen | + + | | + + + +---------+ + + | Performing | Address | City/State/Zipcode | Phone Number | | Organization | | | | + +---------+ + + | EXTERNAL LAB | | | | + +---------+ + + POC Glucose (05/14/2016 6:18 PM PST) + + + + + + | Component | Value | Ref Range | Performed | Pathologist | | | | | At | Signature | + + + + + + | Glucose, | 237 (H)Comment: Testing | 65 - 99 mg/dL | EXTERNAL | | | Fingerstick | performed at [facility];[address] | | LAB | | | | [address];[place] | | | | | | [address] | | | | + + + + + + + + | Specimen | + + | | + + + +---------+ + + | Performing | Address | City/State/Zipcode | Phone Number | | Organization | | | | + +---------+ + + | EXTERNAL LAB | | | | + +---------+ + + POC Glucose (05/14/2016 5:13 PM PST) + + + + + + | Component | Value | Ref Range | Performed | Pathologist | | | | | At | Signature | + + + + + + | Glucose, | 119 (H)Comment: Testing | 65 - 99 mg/dL | EXTERNAL | | | Fingerstick | performed at [facility];[address] | | LAB | | | | [address];[place] | | | | | | [address] | | | | + + + + + + + + | Specimen | + + | | + + + +---------+ + + | Performing | Address | City/State/Zipcode | Phone Number | | Organization | | | | + +---------+ + + | EXTERNAL LAB | | | | + +---------+ + + POC Glucose (05/14/2016 3:59 PM PST) + + + + + + | Component | Value | Ref Range | Performed | Pathologist | | | | | At | Signature | + + + + + + | Glucose, | 113 (H)Comment: Testing | 65 - 99 mg/dL | EXTERNAL | | | Fingerstick | performed at [facility];[address] | | LAB | | | | [address];[place] | | | | | | [address] | | | | + + + + + + + + | Specimen | + + | | + + + +---------+ + + | Performing | Address | City/State/Zipcode | Phone Number | | Organization | | | | + +---------+ + + | EXTERNAL LAB | | | | + +---------+ + + POC Glucose (05/14/2016 2:53 PM PST) + + + + + + | Component | Value | Ref Range | Performed | Pathologist | | | | | At | Signature | + + + + + + | Glucose, | 202 (H)Comment: Testing | 65 - 99 mg/dL | EXTERNAL | | | Fingerstick | performed at [facility];[address] | | LAB | | | | [address];[place] | | | | | | [address] | | | | + + + + + + + + | Specimen | + + | | + + + +---------+ + + | Performing | Address | City/State/Zipcode | Phone Number | | Organization | | | | + +---------+ + + | EXTERNAL LAB | | | | + +---------+ + + POC Glucose (05/14/2016 1:50 PM PST) + + + + + + | Component | Value | Ref Range | Performed | Pathologist | | | | | At | Signature | + + + + + + | Glucose, | 251 (H)Comment: Testing | 65 - 99 mg/dL | EXTERNAL | | | Fingerstick | performed at [facility];[address] | | LAB | | | | [address];[place], [place] | | | | | | [address] | | | | + + + + + + + + | Specimen | + + | | + + + +---------+ + + | Performing | Address | City/State/Zipcode | Phone Number | | Organization | | | | + +---------+ + + | EXTERNAL LAB | | | | + +---------+ + + POC Glucose (05/14/2016 1:08 PM PST) + + + + + + | Component | Value | Ref Range | Performed | Pathologist | | | | | At | Signature | + + + + + + | Glucose, | 243 (H)Comment: Testing | 65 - 99 mg/dL | EXTERNAL | | | Fingerstick | performed at [facility];[address] | | LAB | | | | [address];[place] | | | | | | [address] | | | | + + + + + + + + | Specimen | + + | | + + + +---------+ + + | Performing | Address | City/State/Zipcode | Phone Number | | Organization | | | | + +---------+ + + | EXTERNAL LAB | | | | + +---------+ + + POC Glucose (05/14/2016 11:19 AM PST) + + + + + + | Component | Value | Ref Range | Performed | Pathologist | | | | | At | Signature | + + + + + + | Glucose, | 382 (H)Comment: Testing | 65 - 99 mg/dL | EXTERNAL | | | Fingerstick | performed at [facility];[address] | | LAB | | | | [address];[place] | | | | | | [address] | | | | + + + + + + + + | Specimen | + + | | + + + +---------+ + + | Performing | Address | City/State/Zipcode | Phone Number | | Organization | | | | + +---------+ + + | EXTERNAL LAB | | | | + +---------+ + + POC Glucose (05/14/2016 9:01 AM PST) + + + + + + | Component | Value | Ref Range | Performed | Pathologist | | | | | At | Signature | + + + + + + | Glucose, | 273 (H)Comment: Testing | 65 - 99 mg/dL | EXTERNAL | | | Fingerstick | performed at [facility];[address] | | LAB | | | | [address];[place], [place] | | | | | | [address] | | | | + + + + + + + + | Specimen | + + | | + + + +---------+ + + | Performing | Address | City/State/Zipcode | Phone Number | | Organization | | | | + +---------+ + + | EXTERNAL LAB | | | | + +---------+ + + ECHO Complete (05/14/2016 8:22 AM PST) + + | Specimen | + + | | + + + + + | Impressions | Performed At | + + + | 1. This was a technically difficult study with suboptimal views. 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 | | | Patient not able to cooperate with positioning and low tolerance | | | for exam. 2. The left ventricle appears to be normal in size with | | | normal systolic function EF 60-65%. 3. Aortic valve with limited | | | veiws, however from short axis, severely decreased cusp excursion | | | sugestive of aortic stenosis, no detailed doppler evaluation. 4. | | | There is no pericardial effusion. | | + + + + + + | Narrative | Performed At | + + + | Patient Name: REAGAN SHEPARD Date of : 1945 | | | Performing Physician: Aleksandar Dotson | | | | | | INDICATIONS stroke CONCLUSIONS 1. This | | | was a technically difficult study with suboptimal views. Patient | | | with left sided paralysis with obstruction of apical window. Patient | | | not able to cooperate with positioning and low tolerance for exam. | | | 2. The left ventricle appears to be normal in size with normal | | | systolic function EF 60-65%. 3. Aortic valve with limited veiws, | | | however from short axis, severely decreased cusp excursion sugestive | | | of aortic stenosis, no detailed doppler evaluation. 4. There is no | | | pericardial effusion. FINDINGS -------- ECG rhythm: Sinus | | | rhythm. Study: A 2-dimensional transthoracic echocardiogram with | | | m-mode, spectral and color flow Doppler was perfomed. Study: This was | | | a technically difficult study with suboptimal views. Patient with | | | left sided paralysis with obstruction of apical window. Patient not | | | able to cooperate with positioning and low tolerance for exam. Left | | | Ventricle: Overall left ventricular systolic function is normal with, | | | an EF between 60 - 65 %. Left Ventricle: The left ventricle cavity | | | size is normal. Left Ventricle: Left ventricular wall thickness is | | | normal. Left Ventricle: Poor tissue doppler signal prevents accurate | | | assessment of diastolic function. Right Ventricle: The RV was not | | | well visualized. Left Atrium: The left atrial size is normal. Right | | | Atrium: The right atrium was not well visualized. Aortic Valve: The | | | aortic valve was not well visualized. Aortic Valve: The aortic valve | | | is mildly calcified. Aortic Valve: Limited veiws, however from short | | | axis, severely decreased cusp excursion sugestive of aortic stenosis, | | | no detailed doppler evaluation. Mitral Valve: The mitral valve was | | | not well visualized. Tricuspid Valve: The tricuspid valve was not | | | well visualized. Tricuspid Valve: The poor TR signal prevents | | | accurate estimation of pulmonary pressures. Pulmonic Valve: The | | | pulmonic valve was not well visualized. Pericardium: There is no | | | pericardial effusion. IVC/Hepatic Veins: The IVC is normal size | | | (1.5-2.5cm) and collapses >50% with sniff, consistent with central | | | venous pressures of 5-10mmHg. Contrast: Bubble study not performed | | | due to poor image quality and patients inability to lie still. | | | MEASUREMENTS Ao asc: 3.42 cm IVC: 2.44 cm LA | | | Major: 6.47 cm EDV(Teich): 14.28 ml IVSd: 1.14 cm LVIDd: | | | 2.09 cm LVPWd: 1.08 cm LVOT Diam: 2.00 cm %FS: 29.65 % | | | EF(Teich): 59.60 % ESV(Teich): 5.76 ml IVSs: 1.08 cm | | | LVIDs: 1.47 cm LVPWs: 1.12 cm SV(Teich): 8.51 ml | | | LAESV(A-L): 52.85 ml LAESV Index (A-L): 25.78 ml/m2 LAAs A2C: | | | 20.06 cm2 LAESV A-L A2C: 56.80 ml LAESV MOD A2C: 53.98 ml | | | LALs A2C: 6.01 cm LAAs A4C: 18.67 cm2 LAESV A-L A4C: 45.70 | | | ml LAESV MOD A4C: 43.69 ml LALs A4C: 6.47 cm HR: 94.31 BPM | | | AV maxP.45 mmHg AV meanP.54 mmHg AV Vmax: 1.61 | | | m/s AV Vmean: 1.22 m/s AV VTI: 27.30 cm STEVEN Vmax: 2.68 cm2 | | | STEVEN (VTI): 2.69 cm2 AVAI Vmax: 0.00 cm2/m2 AVAI (VTI): | | | 0.00 cm2/m2 LVCI Dopp: 3.08 l/minm2 LVCO Dopp: 6.31 l/min HR: | | | 85.80 BPM LVOT maxP.48 mmHg LVOT meanP.11 mmHg | | | LVSI Dopp: 35.92 ml/m2 LVSV Dopp: 73.65 ml LVOT Vmax: 1.36 | | | m/s LVOT Vmean: 0.96 m/s LVOT VTI: 23.22 cm MCO: 392.13 ms | | | MV A Jefe: 1.50 m/s MV DecT: 213.25 ms MV E Jefe: 0.88 m/s | | | MV E/A Ratio: 0.59 MV PHT: 74.39 ms MVA By PHT: 2.95 cm2 | | | Septal e': 0.05 m/s Septal E/e': 14.80 RAP: 8 mmHg TV A | | | Jefe: 0.48 m/s TV Dec [place]: 3.62 m/s2 TV Dec Time: 136.62 | | | ms TV E Jefe: 0.49 m/s TV E/A Ratio: 1.02 Core Composer Feeder: [email or web address] | | | Authenticated by: Aleksandar Dotson Report Date/Time: 05-14-2016 | | | 17:14:37 | | + + + + + | Procedure Note | + + | Eliel Ornelas Conversion - 11/02/2018 6:55 AM PDT Patient Name: Aria SHEPARD of | | : 1945 Performing Physician: Aleksandar | | Mauri INDICATIONS------ | | -----stroke CONCLUSIONS 1. This was a technically difficult study with | | suboptimal views. 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 | | Patient not able to cooperate with positioning and low tolerance for exam.2. The left | | ventricle appears to be normal in size with normal systolic function EF 60-65%.3. Aortic | | valve with limited veiws, however from short axis, severely decreased cusp excursion | | sugestive of aortic stenosis, no detailed doppler evaluation.4. There is no pericardial | | effusion. FINDINGS--------ECG rhythm: Sinus rhythm.Study: A 2-dimensional transthoracic | | echocardiogram with m-mode, spectral and color flow Doppler was perfomed.Study: This was | | a technically difficult study with suboptimal views. Patient with left sided paralysis | | with obstruction of apical window. Patient not able to cooperate with positioning and | | low tolerance for exam.Left Ventricle: Overall left ventricular systolic function is | | normal with, an EF between 60 - 65 %.Left Ventricle: The left ventricle cavity size is | | normal.Left Ventricle: Left ventricular wall thickness is normal.Left Ventricle: Poor | | tissue doppler signal prevents accurate assessment of diastolic function.Right | | Ventricle: The RV was not well visualized.Left Atrium: The left atrial size is | | normal.Right Atrium: The right atrium was not well visualized.Aortic Valve: The aortic | | valve was not well visualized.Aortic Valve: The aortic valve is mildly calcified.Aortic | | Valve: Limited veiws, however from short axis, severely decreased cusp excursion | | sugestive of aortic stenosis, no detailed doppler evaluation.Mitral Valve: The mitral | | valve was not well visualized.Tricuspid Valve: The tricuspid valve was not well | | visualized.Tricuspid Valve: The poor TR signal prevents accurate estimation of pulmonary | | pressures.Pulmonic Valve: The pulmonic valve was not well visualized.Pericardium: There | | is no pericardial effusion.IVC/Hepatic Veins: The IVC is normal size (1.5-2.5cm) and | | collapses >50% with sniff, consistent with central venous pressures of | | 5-10mmHg.Contrast: Bubble study not performed due to poor image quality and patients | | inability to lie still. MEASUREMENTS Ao asc: 3.42 cmIVC: 2.44 cmLA | | Major: 6.47 cmEDV(Teich): 14.28 mlIVSd: 1.14 cmLVIDd: 2.09 cmLVPWd: 1.08 | | cmLVOT Diam: 2.00 cm%FS: 29.65 %EF(Teich): 59.60 %ESV(Teich): 5.76 mlIVSs: | | 1.08 cmLVIDs: 1.47 cmLVPWs: 1.12 cmSV(Teich): 8.51 mlLAESV(A-L): 52.85 mlLAESV | | Index (A-L): 25.78 ml/m2LAAs A2C: 20.06 [id number] A-L A2C: 56.80 mlLAESV MOD A2C: | | 53.98 mlLALs A2C: 6.01 cmLAAs A4C: 18.67 [id number] A-L A4C: 45.70 mlLAESV MOD A4C: | | 43.69 mlLALs A4C: 6.47 cmHR: 94.31 BPMAV maxP.45 mmHgAV meanP.54 | | mmHgAV Vmax: 1.61 m/Abilio Vmean: 1.22 m/Abilio VTI: 27.30 cmAVA Vmax: 2.68 cm2AVA | | (VTI): 2.69 [id number] Vmax: 0.00 cm2/m2AVAI (VTI): 0.00 cm2/m2LVCI Dopp: 3.08 | | [id number] Dopp: 6.31 l/minHR: 85.80 BPMLVOT maxP.48 mmHgLVOT meanP.11 | | mmHgLVSI Dopp: 35.92 ml/m2LVSV Dopp: 73.65 mlLVOT Vmax: 1.36 m/sLVOT Vmean: 0.96 | | m/sLVOT VTI: 23.22 cmMCO: 392.13 msMV A Jefe: 1.50 m/sMV DecT: 213.25 msMV E | | Jefe: 0.88 m/sMV E/A Ratio: 0.59MV PHT: 74.39 msMVA By PHT: 2.95 [id number] e': | | 0.05 m/sSeptal E/e': 14.80RAP: 8 mmHgTV A Jefe: 0.48 m/sTV Dec [place]: 3.62 m/s2TV | | Dec Time: 136.62 msTV E Jefe: 0.49 m/sTV E/A Ratio: 1.02 Core Composer Feeder: | | GDAuthenticated by: Aleksandar HernandezraReport Date/Time: 05-14-2016 17:14:37 IMPRESSION: 1. | | This was a technically difficult study with suboptimal views. Patient with left sided | | paralysis with obstruction of apical window. Patient not able to cooperate with | | positioning and low tolerance for exam.2. The left ventricle appears to be normal in | | size with normal systolic function EF 60-65%.3. Aortic valve with limited veiws, however | | from short axis, severely decreased cusp excursion sugestive of aortic stenosis, no | | detailed doppler evaluation.4. There is no pericardial effusion. | |LVPWd: 1.08 cm | |LVOT Diam: 2.00 cm | |%FS: 29.65 % | |EF(Teich): 59.60 % | |ESV(Teich): 5.76 ml | |IVSs: 1.08 cm | |LVIDs: 1.47 cm | |LVPWs: 1.12 cm | |SV(Teich): 8.51 ml | |LAESV(A-L): 52.85 ml | |LAESV Index (A-L): 25.78 ml/m2 | |LAAs A2C: 20.06 cm2 | |LAESV A-L A2C: 56.80 ml | |LAESV MOD A2C: 53.98 ml | |LALs A2C: 6.01 cm | |LAAs A4C: 18.67 cm2 | |LAESV A-L A4C: 45.70 ml | |LAESV MOD A4C: 43.69 ml | |LALs A4C: 6.47 cm | |HR: 94.31 BPM | |AV maxP.45 mmHg | |AV meanP.54 mmHg | |AV Vmax: 1.61 m/s | |AV Vmean: 1.22 m/s | |AV VTI: 27.30 cm | |STEVEN Vmax: 2.68 cm2 | |STEVEN (VTI): 2.69 cm2 | |AVAI Vmax: 0.00 cm2/m2 | |AVAI (VTI): 0.00 cm2/m2 | |LVCI Dopp: 3.08 l/minm2 | |LVCO Dopp: 6.31 l/min | |HR: 85.80 BPM | |LVOT maxP.48 mmHg | |LVOT meanP.11 mmHg | |LVSI Dopp: 35.92 ml/m2 | |LVSV Dopp: 73.65 ml | |LVOT Vmax: 1.36 m/s | |LVOT Vmean: 0.96 m/s | |LVOT VTI: 23.22 cm | |MCO: 392.13 ms | |MV A Jefe: 1.50 m/s | |MV DecT: 213.25 ms | |MV E Jefe: 0.88 m/s | |MV E/A Ratio: 0.59 | |MV PHT: 74.39 ms | |MVA By PHT: 2.95 cm2 | |Septal e': 0.05 m/s | |Septal E/e': 14.80 | |RAP: 8 mmHg | |TV A Jefe: 0.48 m/s | |TV Dec [place]: 3.62 m/s2 | |TV Dec Time: 136.62 ms | |TV E Jefe: 0.49 m/s | |TV E/A Ratio: 1.02 | | | |Core Composer Feeder: TRINY | |Authenticated by: Aleksandar Dotson | |Report Date/Time: 05-14-2016 17:14:37 | | | |IMPRESSION: | |1. This was a technically difficult study with suboptimal views. Patient with left sided p aralysis with obstruction of apical window. Patient not able to cooperate with positioning and low tolerance for exam. | |2. The left ventricle appears to be normal in size with normal systolic function EF 60-65%. | |3. Aortic valve with limited veiws, however from short axis, severely decreased cusp excurs ion sugestive of aortic stenosis, no detailed doppler evaluation. | |4. There is no pericardial effusion. | + + MRSA NAAT (05/14/2016 6:03 AM PST) + + | Specimen | + + | | + + + + + | Narrative | Performed At | + + + | S[facility](NOSE) | EXTERNAL LAB | | Testing performed at [facility];[address] [place] [address];[place] [address] MRSA PCR | | | NEGATIVE Testing performed at | | | [address];[place] [address] | | + + + + +---------+ + + | Performing | Address | City/State/Zipcode | Phone Number | | Organization | | | | + +---------+ + + | EXTERNAL LAB | | | | + +---------+ + + POC Glucose (05/14/2016 5:48 AM PST) + + + + + + | Component | Value | Ref Range | Performed | Pathologist | | | | | At | Signature | + + + + + + | Glucose, | 347 (H)Comment: Testing | 65 - 99 mg/dL | EXTERNAL | | | Fingerstick | performed at [facility];[address] | | LAB | | | | [address];[place] | | | | | | [address] | | | | + + + + + + + + | Specimen | + + | | + + + +---------+ + + | Performing | Address | City/State/Zipcode | Phone Number | | Organization | | | | + +---------+ + + | EXTERNAL LAB | | | | + +---------+ + + ECG 12 lead (05/14/2016 4:58 AM PST) + + + + + + | Component | Value | Ref Range | Performed | Pathologist | | | | | At | Signature | + + + + + + | DIAGNOSIS: | Normal sinus | | EXTERNAL | | | | rhythmInferior infarct , | | LAB | | | | age | | | | | | undeterminedPossible | | | | | | Anterolateral infarct , | | | | | | age undeterminedAbnormal | | | | | | ECGNo previous ECGs | | | | | | availableConfirmed by | | | | | | Aleksandar Dotson ([id number]) | | | | | | on 05/14/2016 11:31:55 PM | | | | | | | | | | + + + + + + + + | Specimen | + + | | + + + + + | Narrative | Performed At | + + + | Historically converted procedure from [facility] environment | EXTERNAL LAB | + + + + +---------+ + + | Performing | Address | City/State/Zipcode | Phone Number | | Organization | | | | + +---------+ + + | EXTERNAL LAB | | | | + +---------+ + + documented in this encounter Visit Diagnoses + + | Diagnosis | + + | Received intravenous tissue plasminogen activator (tPA) in emergency department | + + | Acute left hemiparesis (HCC) Hemiplegia, unspecified, affecting unspecified side | + + | Type 2 diabetes mellitus with hyperglycemia, with long-term current use of insulin | | (HCC) | + + | Ischemic stroke diagnosed during current admission ([facility]) | + + | Type 2 diabetes mellitus with diabetic neuropathy, with long-term current use of | | insulin ([facility]) | + + | Moderate protein-calorie malnutrition ([facility]) Malnutrition of moderate degree | + + | Gastroesophageal reflux disease without esophagitis Esophageal reflux | + + | Hypokalemia Hypopotassemia | + + | Essential hypertension, benign | + + documented in this encounter
--- OUTSIDE RECORDS SUMMARY | ~2019-04-05 | XMS | Encounter Summary ---
Demographics + + + | Address | [address] | | | [place] [address] | + + + | Home Phone | | + + + | Preferred Language | Unknown | + + + | Marital Status | | + + + | Mormon Affiliation | 1076 | + + + | Race | Unknown | + + + | Ethnic Group | Unknown | + + + Author + + + | Author | [facility] | | | and [place] | + + + | Organization | [facility] | | | and [place] | + + + | Address | Unknown | + + + | Phone | Unavailable | + + + Support + + + + + | Name | Relationship | Address | Phone | + + + + + | Jessica Shepard | ECON | [address] | | | | | [place] | | | | | [address] | | + + + + + | Bel Solis | ECON | Unknown | | + + + + + | José Shepard | ECON | [place] | | | | | [address] | | + + + + + | Jessica Shepard | ECON | Unknown | | + + + + + Care Team Providers + +------+ + | Care Allergist/Immunologist Name | Role | Phone | + +------+ + | Dian Lr NP | PCP | | + +------+ + Encounter Details +--------+ + + + + | Date | Type | Department | Care Team | Description | +--------+ + + + + | 10/16/ | Orders Only | [facility] | Provider, | Other acute | | 2019 | | SYSTEM GENERIC OP | [address] | osteomyelitis, right | | | | CON[address] | [address] | ankle and foot | | | | [address] [place], [place] | [place] [address] | ([facility]) | | | | [address] | | | | | | [phone] | | | +--------+ + + + [...] as of this encounter Plan of Treatment + +------+--------+ + + | Name | Type | Priori | Associated Diagnoses | Order Schedule | | | | ty | | | + +------+--------+ + + | CBC with | Lab | Routin | Other acute | Expected: | | Differential | | e | osteomyelitis, right | 07/14/2018, Expires: | | | | | ankle and foot | 07/14/2019 | | | | | (HCC) | | + +------+--------+ + + | Comprehensive | Lab | Routin | Other acute | Expected: | | Metabolic Panel | | e | osteomyelitis, right | 07/14/2018, Expires: | | | | | ankle and foot | 07/14/2019 | | | | | (HCC) | | + +------+--------+ + + | Sedimentation Rate | Lab | Routin | Other acute | Expected: | | | | e | osteomyelitis, right | 07/14/2018, Expires: | | | | | ankle and foot | 07/14/2019 | | | | | (HCC) | | + +------+--------+ + + | C-Reactive Protein | Lab | Routin | Other acute | Expected: | | | | e | osteomyelitis, right | 07/14/2018, Expires: | | | | | ankle and foot | 07/14/2019 | | | | | (HCC) | | + +------+--------+ + + | C-Reactive Protein | Lab | Routin | Other acute | Expected: | | | | e | osteomyelitis, right | 08/01/2018, Expires: | | | | | ankle and foot | 08/02/2019 | | | | | (HCC) | | + +------+--------+ + + | CBC with | Lab | Routin | Other acute | Expected: | | Differential | | e | osteomyelitis, right | 08/01/2018, Expires: | | | | | ankle and foot | 08/02/2019 | | | | | (HCC) | | + +------+--------+ + + | Sedimentation Rate | Lab | Routin | Other acute | Expected: | | | | e | osteomyelitis, right | 08/01/2018, Expires: | | | | | ankle and foot | 08/02/2019 | | | | | (HCC) | | + +------+--------+ + + documented as of this encounter Visit Diagnoses + + | Diagnosis | + + | Other acute osteomyelitis, right ankle and foot ([facility]) | + + documented in this encounter"
--- OUTSIDE RECORDS SUMMARY | ~2019-04-05 | XMS | Encounter Summary ---
Demographics + + + | Address | [address] | | | [place] [address] | + + + | Home Phone | | + + + | Preferred Language | Unknown | + + + | Marital Status | | + + + | Yazidi Affiliation | 1076 | + + + | Race | Unknown | + + + | Ethnic Group | Unknown | + + + Author + + + | Author | [facility] | | | and [place] | + + + | Organization | [facility] | | | and [place] | + + + | Address | Unknown | + + + | Phone | Unavailable | + + + Support + + + + + | Name | Relationship | Address | Phone | + + + + + | Jessica Shepard | ECON | [address] | | | | | [place] | | | | | [address] | | + + + + + | Bel Solis | ECON | Unknown | | + + + + + | José Shepard | ECON | [place] | | | | | [address] | | + + + + + | Jessica Shepard | ECON | Unknown | | + + + + + Care Team Providers + +------+ + | Care Cupola Melting Supervisor Name | Role | Phone | + +------+ + | Dian Lr NP | PCP | | + +------+ + Encounter Details +--------+ + + + + | Date | Type | Department | Care Team | Description | +--------+ + + + + | 11/24/ | Telephone | [facility] | Nelda [address]icks[address] | | | 2017 | | MED CTR ACUTE | | | | | | PHYSICAL THERAPY | | | | | | [address] | | | | | | [place] [address] | | | | | | [phone] | | | +--------+ + + + [...]
--- OUTSIDE RECORDS SUMMARY | ~2019-04-05 | XMS | Encounter Summary ---
Demographics + + + | Address | [address] | | | [place] [address] | + + + | Home Phone | | + + + | Preferred Language | Unknown | + + + | Marital Status | | + + + | Baptism Affiliation | 1076 | + + + | Race | Unknown | + + + | Ethnic Group | Unknown | + + + Author + + + | Author | [facility] | | | and [place] | + + + | Organization | [facility] | | | and [place] | + + + | Address | Unknown | + + + | Phone | Unavailable | + + + Support + + + + + | Name | Relationship | Address | Phone | + + + + + | Jessica Shepard | ECON | [address] | | | | | [place] | | | | | [address] | | + + + + + | Bel Solis | ECON | Unknown | | + + + + + | José Shepard | ECON | [place] | | | | | [address] | | + + + + + | Jessica Shepard | ECON | Unknown | | + + + + + Care Team Providers + +------+ + | Care Carpenter'S Helper Name | Role | Phone | + +------+ + PCP | Unavailable | + +------+ + Encounter Details +--------+ + + + + | Date | Type | Department | Care Team | Description | +--------+ + + + + | 02/22/ | Hospital | [facility] | | | | 2000 | Encounter | MED CTR XRAY [address] | | | | | | [address] | | | | | | [place] [address] | | | | | | [phone] | | | +--------+ + + + [...]
--- OUTSIDE RECORDS SUMMARY | ~2019-04-05 | XMS | Encounter Summary ---
Demographics + + + | Address | [address] | | | [place] [address] | + + + | Home Phone [...] | Organization | [facility] | | | and [place] | + + + | Address | Unknown | + + + | Phone | Unavailable | + + + Support + + + + + | Name | Relationship | Address | Phone | + + + + + | Jessica Shepard | ECON | [address] | | | | | [place] | | | | | [address] | | + + + + + | Bel Solis | ECON | Unknown | | + + + + + | José Shepard | ECON | [place] | | | | | [address] | | + + + + + | Jessica Shepard | ECON | Unknown | | + + + + + Care Team Providers + +------+ + | Care Hand Icer Name | Role | Phone | + +------+ + | Dian Lr NP | PCP | | + +------+ + Encounter Details +--------+ + + + + | Date | Type | Department | Care Team | Description | +--------+ + + + + | 11/26/ | Hospital | [facility] | Toby Ortiz | | | 2018 | Encounter | MED CTR XRAY [address] | [address] | | | | | [address] | [facility] | | | | | [place] [address] | [place] [address] | | | | | [phone] | [phone] | | | | | | | | +--------+ + + + [...] | mouth. | | | 18 | | | tablet | | | [...] by | 360 mL | 0 | 0907/20 | | | albuterol-ipratropiu | nebulization every [...] Daily. | tablet | | 18 | | | tablet | | | | | | + + + +---------+ + + | aspirin 325 mg | Take 325 mg by mouth | | 0 | | | | tablet | Daily. | | | | | + + [...] | mouth Daily. | | | | | | mg [...] tablet | | 18 | | | ophen (NORCO) 10-325 | as [...] | mouth. | | | 18 | | + + + +---------+ + [...]
--- OUTSIDE RECORDS SUMMARY | ~2019-04-05 | XMS | Encounter Summary ---
Demographics + + + | Address | [address] | | | [place] [address] | + + + | Home Phone | | + + + | Preferred Language | Unknown | + + + | Marital Status | | + + + | Jehovah'S Witness Affiliation | 1076 | + + + | Race | Unknown | + + + | Ethnic Group | Unknown | + + + Author + + + | Author | [facility] | | | and [place] | + + + | Organization | [facility] | | | and [place] | + + + | Address | Unknown | + + + | Phone | Unavailable | + + + Support + + + + + | Name | Relationship | Address | Phone | + + + + + | Jessica Shepard | ECON | [address] | | | | | [place] | | | | | [address] | | + + + + + | Bel Solis | ECON | Unknown | | + + + + + | José Shepard | ECON | [place] | | | | | [address] | | + + + + + | Jessica Shepard | ECON | Unknown | | + + + + + Care Team Providers + +------+ + | Care Power Press Supervisor Name | Role | Phone | + +------+ + PCP | Unavailable | + +------+ + Encounter Details +--------+ + + + + | Date | Type | Department | Care Team | Description | +--------+ + + + + | 09/14/ | Hospital | [facility] | | | | 2001 | Encounter | MED CTR XRAY [address] | | | | | | [address] | | | | | | [place] [address] | | | | | | [phone] | | | +--------+ + + + [...]
--- OUTSIDE RECORDS SUMMARY | ~2019-04-05 | XMS | Encounter Summary ---
Demographics + + + | Address | [address] | | | [place] [address] | + + + | Home Phone | | + + + | Preferred Language | Unknown | + + + | Marital Status | | + + + | Catholic Affiliation | 1076 | + + + | Race | Unknown | + + + | Ethnic Group | Unknown | + + + Author + + + | Author | [facility] | | | and [place] | + + + | Organization | [facility] | | | and [place] | + + + | Address | Unknown | + + + | Phone | Unavailable | + + + Support + + + + + | Name | Relationship | Address | Phone | + + + + + | Jessica Shepard | ECON | [address] | | | | | [place] | | | | | [address] | | + + + + + | Bel Soils | ECON | Unknown | | + + + + + | José Shepard | ECON | [place] | | | | | [address] | | + + + + + | Jessica Shepard | ECON | Unknown | | + + + + + Care Team Providers + +------+ + | Care Boat Puller Name | Role | Phone | + +------+ + | Dian Lr NP | PCP | | + +------+ + Encounter Details +--------+ + + + + | Date | Type | Department | Care Team | Description | +--------+ + + + + | 07/21/ | Orders Only | [facility] | Conversion | | | 2019 | | INFECTIOUS DISEASE | Transaction, | | | | | [address] | Provider Unknown | | | | | [place] | [phone] | | | | | [address] | | | | | | [phone] | | | +--------+ + + + [...] + + + | RED CELL | 4.68 | 10 | EXTERNAL | | | COUNT | | | LAB | | + + + + + + | Hgb | 9.4 (A) | 13.5 - 18.0 [...]
--- OUTSIDE RECORDS SUMMARY | ~2019-04-05 | XMS | Encounter Summary ---
Demographics + + + | Address | [address] | | | [place] [address] | + + + | Home Phone [...] Organization | [facility] | | | and [place] | + + + | Address | Unknown | + + + | Phone | Unavailable | + + + Support + + + + + | Name | Relationship | Address | Phone | + + + + + | Jessica Shepard | ECON | [address] | | | | | [place] | | | | | [address] | | + + + + + | Bel Solis | ECON | Unknown | | + + + + + | José Shepard | ECON | [place] | | | | | [address] | | + + + + + | Jessica Shepard | ECON | Unknown | | + + + + + Care Team Providers + +------+ + | Care Wound Nurse Name | Role | Phone | + +------+ + | Dian Lr NP | PCP | | + +------+ + Encounter Details +--------+ + + + + | Date | Type | Department | Care Team | Description | +--------+ + + + + | 07/21/ | Orders Only | [facility] | Conversion | | | 2019 | | INFECTIOUS DISEASE | Transaction, | | | | | [address] | Provider Unknown | | | | | [place] | [phone] | | | | | [address] | | | | | | [phone] | | | +--------+ + + + [...]
--- OUTSIDE RECORDS SUMMARY | ~2019-04-05 | XMS | Encounter Summary ---
Demographics + + + | Address | [address] | | | [place] [address] | + + + | Home Phone | | + + + | Preferred Language | Unknown | + + + | Marital Status | | + + + | Pentecostalism Affiliation | 1076 | + + + | Race | Unknown | + + + | Ethnic Group | Unknown | + + + Author + + + | Author | [facility] | | | and [place] | + + + | Organization | [facility] | | | and [place] | + + + | Address | Unknown | + + + | Phone | Unavailable | + + + Support + + + + + | Name | Relationship | Address | Phone | + + + + + | Jessica Shepard | ECON | [address] | | | | | [place] | | | | | [address] | | + + + + + | Bel Solis | ECON | Unknown | | + + + + + | José Shepard | ECON | [place] | | | | | [address] | | + + + + + | Jessica Shepard | ECON | Unknown | | + + + + + Care Team Providers + +------+ + | Care Ophthalmic Aide Name | Role | Phone | + +------+ + | Dian Lr NP | PCP | | + +------+ + Encounter Details +--------+ + + + + | Date | Type | Department | Care Team | Description | +--------+ + + + + | 04/05/ | Hospital | [facility] | Christina Da Silva | | | 2013 - | Encounter | MED CTR EMERGENCY | MD [address] | | | | | [address] | [facility], | | | 04/06/ | | [place] | [place] [address] | | | 2013 | | [address] | [phone] | | | | | [phone] | | | +--------+ + + + [...] Performed At | + + + | [facility] Diagnostic Imaging | RYDE | | Department [address] [facility] [place] | [facility] | | [ rep [address]] [ rep [facility] | | st zip] Signed | - IMAGING | | | | | Patient Name: KELSILINDAVALARIEREAGAN Physician: | | | SCHR.[birth year] : 1945 Age: 68 Sex: M Unit #: [id number] | | | Exam Date: 04/05/13 Location: ER | | | Report #: [id number] Page: | | | %(RAD)RES..mtdd.print.filter("pg") of %(RAD) | | | RES..mtdd.print.filter("tpg") | | | | | | Accession Number: [id number] | | | ULTRASOUND OF THE ABDOMEN [...] Transcribed Date/Time: 04/06/2013 08:35 | | | Monologist: <<Signature on File>> | | | | | | Rico Santiago MD04/06/13 1619 <Electronically signed by Rico Santiago | | | MD> Rico Santiago MD 04/06/13 0827 Monologist: | | | [employer] [id number]/17/14 0835 Christina Da Silva, | | | MD | | + + + + + + + + | Performing | Address | City/State/Zipcode | Phone Number | | Organization | | | | + + + + + | [facility] | [address] | [place], [place] | [phone] | | [facility] | | [address] | | | - IMAGING | | | | + + + + + CT Abdomen Pelvis w Contrast (04/06/2013 7:25 AM PST) + + | Specimen | + + | | + + + + + | Narrative | Performed At | + + + | [facility] Diagnostic Imaging | RYDE | | Department [address] [place] [address] | [facility] | | [ rep [address]] [ rep [facility] | | st zip] Signed | - IMAGING | | | | | Patient Name: BIAREAGAN Physician: | | | SCHR.01 : 1945 Age: 68 Sex: M Unit #: [id number] | | | Exam Date: 04/05/13 Location: ER | | | Report #: [id number] Page: | | | %(RAD)RES..mtdd.print.filter("pg") of %(RAD) | | | RES..mtdd.print.filter("tpg") | | | | | | Accession Number: [id number] | | | ENHANCED CT ABDOMEN AND [...] | fluid is evident. There are stable hamjbkxntp-vu-iharmr enlarged | | | kierra caval lymph [...] STABLE SPLENOMEGALY. | | | 4. STABLE AMLEDZFWWA-KF-NMNLPZ ENLARGED KIERRA CAVAL LYMPH | | | [...] ER | | | staff by the [facility] radiologist on 04/05/2013 at 2147 hours. | | | Dictated Date/Time: 04/06/2013 07:25 Transcribed | | | Date/Time: 04/06/2013 07:40 Monologist: | | | <<Signature on File>> | | | Tez Jacobo | | | MD Yossi04/06/13 1051 <Electronically signed by Tez Sy MD> | | | Tez Sy MD 04/06/13 0725 Monologist: | | | [facility] [id number]/17/1440 Christina Da Silva, | | | MD | | + + + + + + + + | Performing | Address | City/State/Zipcode | Phone Number | | Organization | | | | + + + + + | [facility] | [address] | [place] | [phone] | | [facility] | | [address] | | | - IMAGING | | [...] - 1.030 | [facility] | | | [place] | | | [facility] | | [...] + | [facility] | [address] | [place] | [phone] | | [facility] | | [address] | | | - LABORATORY | | | | + + + + + | [facility] | [address] | [place] | | | [facility] | | [address] | | | - LABORATORY | | [...] + | [facility] | [address] | [place], [place] | [phone] | | [facility] | | [address] | | | - LABORATORY | | | | + + + + + | [facility] | [address] | [place], [place] | | | [facility] | | [address] | | | - LABORATORY | | [...] + | [facility] | [address] | [place], [place] | [phone] | | [facility] | | [address] | | | - LABORATORY | | | | + + + + + | [facility] | [address] | [place] | | | [facility] | | [address] | | | - LABORATORY | | [...] + | [facility] | [address] | [place], [place] | [phone] | | [facility] | | [address] | | | - LABORATORY | | | | + + + + + | [facility] | [address] | [place], [place] | | | [facility] | | [address] | | | - LABORATORY | | [...] | | | | | RE[place] [facility] | | | | | | 04/05/13 @ 192 by | | | | | | SHANE | | | | | | Comment: PHONED REPORT [place] [facility] 04/05/13 @ 1919 by SHANE | | [address] | [place] | [phone] | | [facility] | | [address] | | | - LABORATORY | | | | + + + + + | [facility] | [address] | [place] | | | [facility] | | [address] | | | - LABORATORY | | | | + + + + + documented in this encounter Visit Diagnoses Not on filedocumented in this encounter
--- OUTSIDE RECORDS SUMMARY | ~2019-04-05 | XMS | Encounter Summary ---
Demographics + + + | Address | [address] | | | [place] [address] | + + + | Home Phone | | + + + | Preferred Language | Unknown | + + + | Marital Status | | + + + | Tenriism Affiliation | 1076 | + + + | Race | Unknown | + + + | Ethnic Group | Unknown | + + + Author + + + | Author | Located Within [facility] | | | and [place] | + + + | Organization | Located Within [facility] | | | and [place] | + + + | Address | Unknown | + + + | Phone | Unavailable | + + + Support + + + + + | Name | Relationship | Address | Phone | + + + + + | Jessica Shepard | ECON | [address] | | | | | [place] | | | | | [address] | | + + + + + | Bel Solis | ECON | Unknown | | + + + + + | José Shepard | ECON | [place] | | | | | [address] | | + + + + + | Jessica Shepard | ECON | Unknown | | + + + + + Care Team Providers + +------+ + | Care Engineering And Operations Director Name | Role | Phone | + +------+ + | Dian Lr NP | PCP | | + +------+ + Encounter Details +--------+ + + + + | Date | Type | Department | Care Team | Description | +--------+ + + + + | 04/05/ | Hospital | [facility] | Christina Da Silva | | | 2013 - | Encounter | [facility] EM[facility] | MD [place] | | | | | [address] | [facility], | | | 04/06/ | | [place] | [place] [address] | | | 2013 | | [address] | [phone] | | | | | [phone] | | | +--------+ + + + [...] Performed At | + + + | [facility] | [place] | | Department [address] [facility] [place] | [facility] | | [ rep [address]] [ rep [facility] | | st zip] Signed | - IMAGING | | | | | Patient Name: KELSILINDAVALARIEREAGAN Physician: | | | SCHR.01 : 1945 Age: 68 Sex: M Unit #: [id number] | | | Exam Date: 04/05/13 Location: ER | | | Report #: [id number] Page: | | | %(RAD)RES..mtdd.print.filter("pg") of %(RAD) | | | RES..mtdd.print.filter("tpg") | | | | | | Accession Number: [id number] | | | ULTRASOUND OF THE ABDOMEN [...] Transcribed Date/Time: 04/06/2013 08:35 | | | Area Coordinator: <<Signature on File>> | | | | | | Rico Santiago MD04/06/13 1619 <Electronically signed by Rico Santiago | | | MD> Rico Santiago MD 04/06/13 0827 Area Coordinator: | | | [facility] Tambkxjcbenve68/17/14 0835 Christina Da Silva, | | | MD | | + + + + + + + + | Performing | Address | City/State/Zipcode | Phone Number | | Organization | | | | + + + + + | [facility] | [address] | [place], [place] | [phone] | | [facility] | | [address] | | | - IMAGING | | | | + + + + + CT Abdomen Pelvis w Contrast (04/06/2013 7:25 AM PST) + + | Specimen | + + | | + + + + + | Narrative | Performed At | + + + | [facility] | [place] | | Department [address] [place] [address] | [facility]) | | [ rep ct street1+2] [ rep [facility] | | st zip] Signed | - IMAGING | | | | | Patient Name: BIAREAGAN Physician: | | | SCHR.01 : 1945 Age: 68 Sex: M Unit #: [id number] | | | Exam Date: 04/05/13 Location: ER | | | Report #: [id number] Page: | | | %(RAD)RES..mtdd.print.filter("pg") of %(RAD) | | | RES..mtdd.print.filter("tpg") | | | | | | Accession Number: [id number] | | | ENHANCED CT ABDOMEN AND [...] | fluid is evident. There are stable ufnskqhxec-by-uojuol enlarged | | | kierra caval lymph [...] STABLE SPLENOMEGALY. | | | 4. STABLE ALICCVXWGA-AP-MXUXUY ENLARGED KIERRA CAVAL LYMPH | | | [...] ER | | | staff by the [facility] radiologist on 04/05/2013 at 2147 hours. | | | Dictated Date/Time: 04/06/2013 07:25 Transcribed | | | Date/Time: 04/06/2013 07:40 Area Coordinator: | | | <<Signature on File>> | | | Tez Jacobo | | | MD Yossi04/06/13 1051 <Electronically signed by Tez Sy MD> | | | Tez Sy MD 04/06/13 0725 Area Coordinator: | | | [facility] Ojnnqynjlzrph58/17/1440 Christina Da Silva, | | | MD | | + + + + + + + + | Performing | Address | City/State/Zipcode | Phone Number | | Organization | | | | + + + + + | [facility] | [address] | [place] | [phone] | | [facility] | | [address] | | | - IMAGING | | [...] - 1.030 | [facility] | | | [place] | | | [facility] | | [...] + | [facility] | [address] | [place] | [phone] | | [facility] | | [address] | | | - LABORATORY | | | | + + + + + | [facility] | [address] | [place] | | | [facility] | | [address] | | | - LABORATORY | | [...] + | [facility] | [address] | [place], [place] | [phone] | | [facility] | | [address] | | | - LABORATORY | | | | + + + + + | [facility] | [address] | [place], [place] | | | [facility] | | [address] | | | - LABORATORY | | [...] + | [facility] | [address] | [place], [place] | [phone] | | [facility] | | [address] | | | - LABORATORY | | | | + + + + + | [facility] | [address] | [place] | | | [facility] | | [address] | | | - LABORATORY | | [...] + | [facility] | [address] | [place], [place] | [phone] | | [facility] | | [address] | | | - LABORATORY | | | | + + + + + | [facility] | [address] | [place], [place] | | | [facility] | | [address] | | | - LABORATORY | | [...] | | | | | REPORT TO [facility] | | | | | | 04/05/13 @ 192 by | | | | | | SHANE | | | | | | Comment: PHONED REPORT TO [facility] 04/05/13 @ 1919 by SHANE | | [...] [address] | [place] | [phone] | | [facility] | | [address] | | | - LABORATORY | | | | + + + + + | [facility] | [address] | [place] | | | [facility] | | [address] | | | - LABORATORY | | | | + + + + + documented in this encounter Visit Diagnoses Not on filedocumented in this encounter
--- OUTSIDE RECORDS SUMMARY | ~2019-04-05 | XMS | Clinical Summary ---
Demographics + + + | Address | [address] | | | [place] [address] | + + + | Home Phone | | + + + | Preferred Language | Unknown | + + + | Marital Status | | + + + | Christianity Affiliation | 1076 | + + + | Race | Unknown | + + + | Ethnic Group | Unknown | + + + Author + + + | Author | 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 | + + + + + | Acute left hemiparesis (HCC) | 05/14/2016 | + + + | Type 2 diabetes mellitus with hyperglycemia, with long-term | 05/14/2016 | | current use of insulin ([facility]) | | + + + | Ischemic [...] + + | MEDICARE | MEDICA | [id number] | | | [address] | | | RE | | | | [place] [address] | | | IP-OP | | | | | + +--------+ +------+ + + | [employer] | [employer] | [id number] | | [phone] [employer] [id number] | | ADMINISTRATION | [place] | | | [phone] | | | ADMINI | | | | [place] | | | [place] | | | | [phone] | | | [place] | | | [...] | Self | [birth year] | Home: | [address] | | | al/Fam | | 7 | +- | [place] | | | carlos | | | [phone] | [phone] | + +--------+ +--------+ + + | SAROJ AMEZQUITA | Vetera | Self | [birth year] | Home: | [address] | | | ns | | 1944 | +- | [place] | | | Admini | | | [phone] | [address] | | | strati | | | | | | | on | | | | | + +--------+ +--------+ + +
--- OUTSIDE RECORDS SUMMARY | ~2019-04-05 | XMS | Encounter Summary ---
Demographics + + + | Address | [address] | | | [place] [address] | + + + | Home Phone | | + + + | Preferred Language | Unknown | + + + | Marital Status | | + + + | Sikhism Affiliation | 1076 | + + + | Race | Unknown | + + + | Ethnic Group | Unknown | + + + Author + + + | Author | [facility] | | | and [place] | + + + | Organization | [facility] | | | and [place] | + + + | Address | Unknown | + + + | Phone | Unavailable | + + + Support + + + + + | Name | Relationship | Address | Phone | + + + + + | Jessica Shepard | ECON | [address] | | | | | [place] | | | | | [address] | | + + + + + | Bel Solis | ECON | Unknown | | + + + + + | José Shepard | ECON | [place] | | | | | [address] | | + + + + + | Jessica Shepard | ECON | Unknown | | + + + + + Care Team Providers + +------+ + | Care Apparel Patternmaker Name | Role | Phone | + +------+ + | Dian Lr NP | PCP | | + +------+ + Encounter Details +--------+ + + + + | Date | Type | Department | Care Team | Description | +--------+ + + + + | 01/03/ | Lab | [facility] | Toby Ortiz | Other acute | | 2018 | Requisition | MED CTR LABORATORY | MD [address] | osteomyelitis, right | | | | [address] [place] | [facility] | ankle and foot | | | | [place], [place] | [place] [address] | ([facility]); Diabetes | | | | [address] | [phone] | mellitus due to | | | | [phone] | | underlying condition | | | | | | with foot ulcer | | | | | | (CODE) ([facility]); 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 | | | | | ([facility]) Diabetes | | | | | | mellitus due to | | | | | | underlying condition | | | | | | with foot ulcer | | | | | | (CODE) ([facility]) Other | | | | | | shelter (current) | | | | | | drug therapy | | + +--------+ + + + | CBC WITH | Routin | 01/03/2018 | Other acute | Results for this | | DIFFERENTIAL | e | 9:45 AM | osteomyelitis, right | procedure are in the | | | | PDT | ankle and foot | results section. | | | | | ([facility]) Diabetes | | | | | | mellitus due to | | | | | | underlying condition | | | | | | with foot ulcer | | | | | | (CODE) ([facility]) Other | | | | | | shelter (current) | | | | | | drug therapy | | + +--------+ + + + | C-REACTIVE PROTEIN | Routin | 01/03/2018 | Other acute | Results for this | | | e | 9:45 AM | osteomyelitis, right | procedure are in the | | | | PDT | ankle and foot | results section. 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 | [address] | [place] | [phone] | | [facility] | | [address] | | | - LABORATORY | | [...] + | [facility] | 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
--- OUTSIDE RECORDS SUMMARY | ~2019-04-05 | XMS | Encounter Summary ---
Demographics + + + | Address | [address] | | | [place] [address] | + + + | Home Phone [...] + | Author | [facility] | | | and [place] | + + + | Organization | [facility] | | | and [place] | + + + | Address | Unknown | + + + | Phone | Unavailable | + + + Support + + + + + | Name | Relationship | Address | Phone | + + + + + | Jessica Shepard | ECON | [address] | | | | | [place] | | | | | [address] | | + + + + + | Bel Solis | ECON | Unknown | | + + + + + | José Shepard | ECON | [place] | | | | | [address] | | + + + + + | Jessica Shepard | ECON | Unknown | | + + + + + Care Team Providers + +------+ + | Care Physician Pediatrician Name | Role | Phone | + [...] + + | 11/21/ | Surgery | [facility] | Simone Aceves T, | Amputation Right 5th | | 2018 | | [facility] | DPM [address] | Metatarsal | | | | [address] | [place] | | | | | [place] | [address] | | | | | [address] | [phone] | | | | | [phone] | | | +--------+---------+ + + + [...] other anesthesia was used during the case. [facility] t lower extremity was then scrubbed, prepped [...] -PT/OT ordered Code Status: Full Code Disposition: [facility] Discharge Condition: Stable, very deconditioned and weak at baseline Pleasant, no distress RRR, no m/r/g CTA bilaterally Soft, obese, NT Ext WWP, right foot ulcer with deep wound, slight purulent drainage Contact information for after-discharge care Placement Destination [facility] . Specialty: Intermediate Facility Contact information: [address] [place] [address] Discharge Medications New Medications Details acetaminophen [...] signed by: Justin Reyna MD, 11/25/2017 13:01 [facility] documented in this encounter Medications at [...] might be different f rom the original. [facility] Hospitalist Progress Note Reagan Shepard is [...] pantoprazole Mechanical fall -PT/OT ordered Disposition : [facility] as soon as 11/25 Prophylaxis : [...] as outlined above. Justin Reyna 11/24/2017 18:16 [facility] Sang Duff MD - 11/24/2017 1:59 PM PDTWe are evaluating the patient for further medical rehabilitatio n services. He does not qualify per [facility] guidelines for full inpatient rehab . I recommend he be transferred to SNF for further skilled therapies once he is cleared acute ly. Justin Rodriguez MD - 11/23/2017 2:24 PM PDT [facility] Hospitalist Progress Note Reagan Shepard is [...] as outlined above. Justin Reyna 11/23/2017 14:24 [facility] Simone Roth DPM - 11/23/2017 1:58 PM PDT Foot & Ankle Surgery Progress Note Simone Shepard Age/Gender 72 y.o. male Location [facility] Attending Karuna-Hwa Lori, MD Hosp Day # 4 PCP Dian [...] Value Units Date/Time Culture, Wound, Smear, w/Anaerobe [[id number]] Collected: 11/21/171207 Order Status: Sent Lab Status: In process Updated: 11/21/171249 Specimen: Tissue from Toe, Fifth/Small, Right Narrative: The following orders were created for panel order Culture, Wound, Smear, w/Anaerobe. Procedure Abnormality Status --------- ------ Culture, Wound, Smear[[id number]] In process Culture, Anaerobic[[id number]] In process Please view results for these tests on the individual orders. Culture, Wound, Smear [[id number]] Collected: 11/21/171207 Order Status: Sent Lab Status: In process Updated: 11/21/171249 Specimen: Tissue from Toe, Fifth/Small, Right Culture, Anaerobic [[id number]] Collected: 11/21/171207 Order Status: Sent Lab Status: In process Updated: 11/21/171249 Specimen: Tissue from Toe, Fifth/Small, Right Assessment: [...] Simone Aceves DPM 13:58; 11/23/2017 Irasema Dominguez, Radio Time Salesperson - 11/23/2017 9:43 AM PDT PHARMACY SERVICES: [...] strength, and directions X Pharm[facility] list names[facility] reported information X Care Everywhere X [...] Prior to Admission Sig: 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 Provider aspirin 325 mg tablet Take 325 mg by mouth Daily. Taking Historical Provider, atorvaSTATin (LIPITOR) 40 mg tablet Take 40 mg by mouth nightly. Taking Historical Provid er, MD medleyte-senna (SENOKOT-S) 50-8.6 mg per tablet Take 1 [...] as needed for Pain. Taking Differently Historical Provider, insulin glargine (LANTUS) 100 units/mL injection (vial) Inject 30 Units under the skin 2 t imes daily. Taking Historical Provider, omeprazole (PRILOSEC) 20 mg capsule Take 20 mg by mouth every morning (before breakfast). Taking Historical Provider, sAXagliptin (ONGLYZA) 5 mg TABS tablet Take 5 mg by mouth Daily. Taking Historical Provid MD jurgen Medication review performed and electronically signed by Blanquita Bertrand, Consumer Marketing Manager 11/22/2017 8:38 Electronically signed by: Irasema Moyer, Radio Time Salesperson 11/23/2017 9:43 Justin Rodriguez MD - 11/22/2017 5:22 PM PDT [facility] Hospitalist Progress Note Reagan Shepard is [...] as outlined above. Justin Reyna 11/22/2017 17:40 [facility] Danielle Claire, Executive Account Manager - 11/22/2017 2:13 PM PDTFormatting of this [...] cerebral hemisphere; Diabetes mellitus (HCC); Stroke (cerebrum) ([facility]); an d TBI (traumatic brain injury) ([facility]). No risk factors for MDR organisms. HPI: [...] Value Units Date/Time Culture, Wound, Smear, w/Anaerobe [[id number]] Collected: 11/21/171207 Order Status: Sent Lab Status: In process Updated: 11/21/17 1250 Specimen: Tissue from Toe, Fifth/Small, Right Narrative: The following orders were created for panel order Culture, Wound, Smear, w/Anaerobe. Procedure Abnormality Status --------- ------ Culture, Wound, Smear[[id number]] Preliminary result Culture, Anaerobic[[id number]] In process Please view results for these tests on the individual orders. Culture, Wound, Smear [[id number]] Collected: 11/21/171207 Order Status: Completed Lab Status: Preliminary result Updated: 11/22/17 1021 Specimen: Tissue from Toe, Fifth/Small, Right Culture 2+ Lactose Fermenting Gram Negative Bacilli Comment: Identification and susceptibility to follow. Gram Stain Result 2+ White Blood Cells 1+ Epithelial cells 2+ Gram negative rods Culture, Anaerobic [[id number]] Collected: 11/21/17 120 Order Status: Sent Lab Status: In process Updated: 11/21/17 1250 Specimen: Tissue from Toe, Fifth/Small, Right Respiratory Virus Panel, NAAT [[id number]] Collected: 11/20/17 1257 Order Status: Completed Lab [...] pneumoniae DNA Not Detected Narrative: Performed at: [address] [place] [id number] Steel Plate Printer: Jurgen Costa MD, Phone: [phone] Culture, Wound, Smear [[id number]] (Susceptibility) Collected: 11/20/17 0825 Order Status: Completed [...] Sulfamethoxazole <=20 ug/mL Sensitive Culture, Wound, Smear [[id number]] (Susceptibility) Collected: 11/19/17 2031 Order Status: Completed [...] no longer reported. Culture, Respiratory, Lower, Smear [[id number]] Order Status: Sent Lab Status: No result Specimen: Body Fluid from Sputum, Expectorated Culture, Wound, Smear [[id number]] Order Status: Canceled Lab Status: No result Specimen: Tissue from Leg, Left Culture, Blood [[id number]] (Normal) Collected: 11/19/17 1537 Order Status: Completed Lab Status: Preliminary result Updated: 11/20/17 0351 Specimen: Blood from Peripheral Blood Culture No growth: Monitored continually by instrument for 5 days Culture, Blood [[id number]] (Normal) Collected: 11/19/17 1506 Order Status: Completed Lab Status: Preliminary result Updated: 11/20/17 0321 Specimen: Blood from Peripheral Blood Culture No growth: Monitored continually by instrument for 5 days Culture, Urine [[id number]] Collected: 11/19/17 1416 Order Status: Completed Lab [...] Monitoring Protocol Electronically signed by: Danielle Guillermo, Executive Account Manager 11/22/2017 14:13 Associated attestation - Luther Hampton PharmD - 11/22/2017 2:26 PM PDTBreMaylin Mcfarland rmD 11/22/2017 14:26 [facility] Contre[facility] [...] Simone Shepard Age/Gender 72 y.o. male Location [facility] Attending Mil Sandoval MD Hosp Day [...] Value Units Date/Time Culture, Wound, Smear, w/Anaerobe [[id number]] Collected: 11/21/171207 Order Status: Sent Lab Status: In process Updated: 11/21/17 125 Specimen: Tissue from Toe, Fifth/Small, Right Narrative: The following orders were created for panel order Culture, Wound, Smear, w/Anaerobe. Procedure Abnormality Status --------- ------ Culture, Wound, Smear[[id number]] In process Culture, Anaerobic[[id number]] In process Please view results for these tests on the individual orders. Culture, Wound, Smear [[id number]] Collected: 11/21/171207 Order Status: Sent Lab Status: In process Updated: 11/21/17 125 Specimen: Tissue from Toe, Fifth/Small, Right Culture, Anaerobic [[id number]] Collected: 11/21/171207 Order Status: Sent Lab Status: [...] place. Dispo: Likely a SNF Simone Aceves DPSunshine 8:28; 11/22/2017 hadra Walsh, Pharm D - [...] cerebral hemisphere; Diabetes mellitus (HCC); Stroke (cerebrum) ([facility]); an d TBI (traumatic brain injury) ([facility]). . No risk factors for MDR organisms. [...] Value Units Date/Time Culture, Wound, Smear, w/Anaerobe [[id number]] Collected: 11/21/17 1208 Order Status: Sent Lab Status: In process Updated: 11/21/17 1250 Specimen: Tissue from Toe, Fifth/Small, Right Narrative: The following orders were created for panel order Culture, Wound, Smear, w/Anaerobe. Procedure Abnormality Status --------- ------ Culture, Wound, Smear[[id number]] In process Culture, Anaerobic[[id number]] In process Please view results for these tests on the individual orders. Culture, Wound, Smear [[id number]] Collected: 11/21/17 1208 Order Status: Sent Lab Status: In process Updated: 11/21/17 1250 Specimen: Tissue from Toe, Fifth/Small, Right Culture, Anaerobic [[id number]] Collected: 11/21/17 1208 Order Status: Sent Lab Status: In process Updated: 11/21/17 1250 Specimen: Tissue from Toe, Fifth/Small, Right Respiratory Virus Panel, NAAT [[id number]] Collected: 11/20/17 1257 Order Status: Sent Lab Status: In process Updated: 11/20/17 1302 Specimen: Tissue from Nasopharynx Culture, Wound, Smear [[id number]] Collected: 11/20/17 0825 Order Status: Completed Lab Status: Preliminary result Updated: 11/21/17 0739 Specimen: Tissue from Foot, Right Culture 1+ Gram Negative Jayesh, NOT Pseudomonas Comment: Identification and susceptibility to follow. 1+ Gram Positive Cocci Comment: Isolating for additional information. Gram Stain Result 1+ White Blood Cells No organisms seen Culture, Wound, Smear [[id number]] (Susceptibility) Collected: 11/19/172030 Order Status: Completed Lab [...] <=20 ug/mL Sensitive Culture, Respiratory, Lower, Smear [[id number]] Order Status: Sent Lab Status: No result Specimen: Body Fluid from Sputum, Expectorated Culture, Wound, Smear [[id number]] Order Status: Canceled Lab Status: No result Specimen: Tissue from Leg, Left Culture, Blood [[id number]] (Normal) Collected: 11/19/17 1537 Order Status: Completed Lab Status: Preliminary result Updated: 11/20/17 0351 Specimen: Blood from Peripheral Blood Culture No growth: Monitored continually by instrument for 5 days Culture, Blood [[id number]] (Normal) Collected: 11/19/17 1506 Order Status: Completed Lab Status: Preliminary result Updated: 11/20/17 0321 Specimen: Blood from Peripheral Blood Culture No growth: Monitored continually by instrument for 5 days Culture, Urine [[id number]] Collected: 11/19/17 1416 Order Status: Completed Lab [...] Protocol Electronically signed by: Khadra Walsh, Deneen 11/21/2017 13:35 Nasim Hoff MD - 11/21/2017 11:05 AM PDT [facility] HOSPITALIST PROGRESS NOTE Patient: Reagan Shepard : 1945: Age: 72 y.o. MedRec: [id number] Admission date: 11/19/2017 Hospital day # : [...] Daily Mil Sandoval MD 200 mg at 11/20/17805 DULoxetine (CYMBALTA) DR capsule 30 mg 30 mg Oral BID Mil Sandoval MD 30 mg at 11/21 furosemide (LASIX) injection 20 mg 20 mg Intravenous Daily Nasim Jimenez MD 20 mg at 11/21/17912 gabapentin (NEURONTIN) capsule 800 mg 800 mg Oral TID Mil Sandoval MD 800 mg at 0 06/05 0914 heparin 5,000 units/mL injection 5,000 [...] E' Septal Velocity 4.79 cm/s MV Deceleration [place] 336.24 cm/s2 MV Deceleration Time 332.96 msec [...] Value Units Date/Time Respiratory Virus Panel, NAAT [[id number]] Collected: 11/20/17 1257 Order Status: Sent Lab Status: In process Updated: 11/20/17 1302 Specimen: Tissue from Nasopharynx Culture, Wound, Smear [[id number]] Collected: 11/20/17 0825 Order Status: Completed Lab Status: Preliminary result Updated: 11/21/17 0739 Specimen: Tissue from Foot, Right Culture 1+ Gram Negative Jayesh, NOT Pseudomonas Comment: Identification and susceptibility to follow. 1+ Gram Positive Cocci Comment: Isolating for additional information. Gram Stain Result 1+ White Blood Cells No organisms seen Culture, Wound, Smear [[id number]] (Susceptibility) Collected: 11/19/17 2031 Order Status: Completed Lab Status: Preliminary result [...] + Sulfamethoxazole <=20 ug/mL Sensitive Culture, Blood [[id number]] (Normal) Collected: 11/19/17 1537 Order Status: Completed Lab Status: Preliminary result Updated: 11/20/17 0351 Specimen: Blood from Peripheral Blood Culture No growth: Monitored continually by instrument for 5 days Culture, Blood [[id number]] (Normal) Collected: 11/19/17 1506 Order Status: Completed Lab Status: Preliminary result Updated: 11/20/17 0321 Specimen: Blood from Peripheral Blood Culture No growth: Monitored continually by instrument for 5 days Culture, Urine [[id number]] Collected: 11/19/17 1416 Order Status: Completed Lab [...] Other Pharmacy Consult Nasim Jimenez 11/21/2017 11:05 [facility] Nasim Hoff MD - 11/20/2017 10:04 AM PDT [facility] [place] HOSPITALIST PROGRESS NOTE Patient: Reagan Shepard : 1945: Age: 72 y.o. MedRec: [id number] Admission date: 11/19/2017 Hospital day # : [...] Nightly Mil Sandoval MD 40 mg at 0904/07 dextrose 50% injection 12.5 g 12.5 g [...] vancomycin per pharmacy Other Pharmacy Consult Mil Sadnoval MD Current Infusions: Objective Data Point of [...] PH UA 5.0 5.0 - 8.0 Specific [place] 1.017 1.001 - 1.030 PROTEIN UA 30 [...] Component Value Units Date/Time Culture, Wound, Smear [[id number]] Collected: 11/20/17 0825 Order Status: Sent Lab Status: In process Updated: 11/20/17 0829 Specimen: Tissue from Foot, Right Culture, Wound, Smear [[id number]] Collected: 11/19/172030 Order Status: Completed Lab Status: Preliminary result Updated: 11/20/17 09 Specimen: Tissue from Leg, Lower, Right Culture 2+ Gram Negative Jayesh, NOT Pseudomonas Comment: Identification and susceptibility to follow. 1+ Gram Positive Cocci Comment: Isolating for additional information. Gram Stain Result No white blood cells (PMNs) seen 1+ Gram negative rods Culture, Blood [[id number]] (Normal) Collected: 11/19/17 1537 Order Status: Completed Lab Status: Preliminary result Updated: 11/20/17 0351 Specimen: Blood from Peripheral Blood Culture No growth: Monitored continually by instrument for 5 days Culture, Blood [[id number]] (Normal) Collected: 11/19/17 1506 Order Status: Completed Lab Status: Preliminary result Updated: 11/20/17 0321 Specimen: Blood from Peripheral Blood Culture No growth: Monitored continually by instrument for 5 days Culture, Urine [[id number]] (Normal) Collected: 11/19/17 1416 Order Status: Completed [...] Other Pharmacy Consult Nasim Jimenez 11/20/2017 10:05 [facility] hadra Walsh Phar mD - 11/20/2017 9:10 AM PDT [...] cerebral hemisphere; Diabetes mellitus (HCC); Stroke (cerebrum) ([facility]); an d TBI (traumatic brain injury) ([facility]). . No risk factors for MDR organisms. [...] Component Value Units Date/Time Culture, Wound, Smear [[id number]] Collected: 11/20/17 0825 Order Status: Sent Lab Status: In process Updated: 11/20/17 08 Specimen: Tissue from Foot, Right Culture, Wound, Smear [[id number]] Collected: 11/19/172030 Order Status: Completed Lab Status: Preliminary result Updated: 11/20/17 09 Specimen: Tissue from Leg, Lower, Right Culture 2+ Gram Negative Jayesh, NOT Pseudomonas Comment: Identification and susceptibility to follow. 1+ Gram Positive Cocci Comment: Isolating for additional information. Gram Stain Result No white blood cells (PMNs) seen 1+ Gram negative rods Culture, Respiratory, Lower, Smear [[id number]] Order Status: Sent Lab Status: No result Specimen: Body Fluid from Sputum, Expectorated Culture, Wound, Smear [[id number]] Order Status: Canceled Lab Status: No result Specimen: Tissue from Leg, Left Culture, Blood [[id number]] (Normal) Collected: 11/19/17 1537 Order Status: Completed Lab Status: Preliminary result Updated: 11/20/17 0351 Specimen: Blood from Peripheral Blood Culture No growth: Monitored continually by instrument for 5 days Culture, Blood [[id number]] (Normal) Collected: 11/19/17 1506 Order Status: Completed Lab Status: Preliminary result Updated: 11/20/17 0321 Specimen: Blood from Peripheral Blood Culture No growth: Monitored continually by instrument for 5 days Culture, Urine [[id number]] (Normal) Collected: 11/19/17 1416 Order Status: Completed [...] and Monitoring Protocol Electronically signed by: Khadra Walsh PharmMariella 11/20/2017 9:10 ICIAMarionvinKim P harmD - 11/19/2017 6:59 PM PDT [...] cerebral hemisphere; Diabetes mellitus (HCC); Stroke (cerebrum) ([facility]); an d TBI (traumatic brain injury) ([facility]). . No risk factors for MDR organisms. [...] Value Units Date/Time Culture, Respiratory, Lower, Smear [[id number]] Order Status: Sent Lab Status: No result Specimen: Body Fluid from Sputum, Expectorated Culture, Wound, Smear [[id number]] Order Status: Sent Lab Status: No result Specimen: Tissue from Leg, Left Culture, Blood [[id number]] Collected: 11/19/17 1537 Order Status: Sent Lab Status: In process Updated: 11/19/17 1543 Specimen: Blood from Peripheral Blood Culture, Blood [[id number]] Collected: 11/19/17 1506 Order Status: Sent Lab Status: In process Updated: 11/19/17 1511 Specimen: Blood from Peripheral Blood Culture, Urine [[id number]] Collected: 11/19/17 1416 Order Status: Sent Lab [...] and Monitoring Protocol Electronically signed by: Kim Greco PharmD 11/19/2017 18:59 documented in thi s [...] the | | | | PDT | ([facility]) | results section. | + +--------+ + [...] | | | ON?09/ | | | 01/201 | | | 8 | | | 13:19? | | | HUESTI | | | ES, | | | REAGAN | | | K?MRN: | | | | | | [id number] | | | [id number] | | | his | | | [...] | | | ent/06 | | | [id number] | | | -9b07- | | | [...] | | | St. | | | [place] | | | y H. | | [...] | | | St. | | | [place] | | | y | | | [...] [address] | [place] | [phone] | | [facility] | | [address] | | | - LABORATORY | | [...] [address] | [place] | [phone] | | [facility] | | [address] | | | - LABORATORY | | [...] [address] | [place] | [phone] | | [facility] | | [address] | | | - LABORATORY | | [...] | | | | | mg/dL | [facility] | | | | | | MEDICAL | | | | | | CENTER - | | | | | | LABORATORY | | + + + + + + | eGFR if not | >60Comment: GLOMERULAR | >=60 | [facility] | | | | FILTRATION | mL/min/1.73m2 | [facility] | | | [place] | RATE,ESTIMATED | | MEDICAL | | | | mL/min/1.10p7Dssj than | | CENTER - | | [...] | | | | | mg/dL | [facility] | | | | | [...] [address] | [place] | [phone] | | [facility] | | [address] | | | - LABORATORY | | [...] (H) | 4.0 - 11.0 K/uL | [facility] | | | | | | [facility] | | | | | | MEDICAL | | | | | | CENTER - | | | | | | LABORATORY | | + + + + + + | RBC | 4.60 | 4.30 - 5.70 | [facility] | | | | | M/uL | [facility] | | | | | [...] + | [facility] | [address] | [place] | [phone] | | [facility] | | [address] | | | - LABORATORY | | [...] ST. | [address] | [place], [place] | [phone] | | [facility] | | [address] | | | - LABORATORY | | [...] [address] | [place] | [phone] | | [facility] | | [address] | | | - LABORATORY | | [...] + | [address] | [address] | [place] | [phone] | | [facility] | | [address] | | | - LABORATORY | | [...] [address] | [place] | [phone] | | [facility] | | [address] | | | - LABORATORY | | [...] | mL/min/1.73m2 | [facility] | | | [place] | RATE,ESTIMATED | | MEDICAL | | | | mL/min/1.21p6Xnvm than | | CENTER - | | [...] | ine Ratio | | | [facility] | | [...] [address] | [place] | [phone] | | [facility] | | [address] | | | - LABORATORY | | [...] + | [address] | [address] | [place] | [phone] | | [facility] | | [address] | | | - LABORATORY | | [...] [address] | [place] | [phone] | | [facility] | | [address] | | | - LABORATORY | | [...] [address] | [place] | [phone] | | [facility] | | [address] | | | - LABORATORY | | [...] + | [facility] | [address] | [place] | [phone] | | [facility] | | [address] | | | - LABORATORY | | [...] + | [facility] | [address] | [place] | [phone] | | [facility] | | [address] | | | - LABORATORY | | [...] ST. | [address] | [place], [place] | [phone] | | [facility] | | [address] | | | - LABORATORY | | [...] | 0.87 | 0.60 - 1.30 | [facility] | | | | | mg/dL | [facility] | | | | | | MEDICAL | | | | | | CENTER - | | | | | | LABORATORY | | + + + + + + | eGFR if not | >60Comment: GLOMERULAR | >=60 | [facility] | | | | FILTRATION | mL/min/1.73m2 | [facility] | | | [place] | RATE,ESTIMATED | | MEDICAL | | | | mL/min/1.28j0Raqy than | | CENTER - | | [...] | | | | | mg/dL | [facility] | | | | [...] [address] | [place] | [phone] | | [facility] | | [address] | | | - LABORATORY | | [...] | | | Lymphocytes | | | [facility] | | [...] + | [facility] | [address] | [place] | [phone] | | [facility] | | [address] | | | - LABORATORY | | [...] [address] | [place] | [phone] | | [facility] | | [address] | | | - LABORATORY | | [...] [address] | [place] | [phone] | | [facility] | | [address] | | | - LABORATORY | | [...] + | [facility] | [address] | [place] | [phone] | | [facility] | | [address] | | | - LABORATORY | | [...] + | [address] | [address] | [place], [place] | [phone] | | [facility] | | [address] | | | - LABORATORY | | [...] [address] | [place] | [phone] | | [facility] | | [address] | | | - LABORATORY | | [...] ST. | [address] | [place] | [phone] | | [facility] | | [address] | | | - LABORATORY | | [...] | Basophils | | K/uL | [facility] | [...] [address] | [place] | [phone] | | [facility] | | [address] | | | - LABORATORY | | [...] | 1.04 | 0.60 - 1.30 | [facility] | | | | | mg/dL | [facility] | | | | | | MEDICAL | | | | | | CENTER - | | | | | | LABORATORY | | + + + + + + | eGFR if not | >60Comment: GLOMERULAR | >=60 | [facility] | | | | FILTRATION | mL/min/1.73m2 | [facility] | | | [place] | RATE,ESTIMATED | | MEDICAL | | | | mL/min/1.22o7Gqag than | | CENTER - | | [...] + | [facility] | [address] | [place] | [phone] | | [facility] | | [address] | | | - LABORATORY | | [...] ST. | [address] | [place], [place] | [phone] | | [facility] | | [address] | | | - LABORATORY | | [...] [address] | [place] | [phone] | | [facility] | | [address] | | | - LABORATORY | | [...] [address] | [place] | [phone] | | [facility] | | [address] | | | - LABORATORY | | [...] [address] | [place] | [phone] | | [facility] | | [address] | | | - LABORATORY | | [...] [address] | [place] | [phone] | | [facility] | | [address] | | | - LABORATORY | | [...] + | [facility] | [address] | [place] | [phone] | | [facility] | | [address] | | | - LABORATORY | | [...] + | [facility] | [address] | [place] | [phone] | | [facility] | | [address] | | | - LABORATORY | | [...] Anisocytosi | Slight (A) | (none) | [facility] | | | s | | | [facility] | | [...] cells seen | [facility] | | [facility] | | | - LABORATORY | + + + + + + + + | Performing | Address | City/State/Zipcode | Phone Number | | Organization | | | | + + + + + | [facility] | [address] | [place] | [phone] | | [facility] | | [address] | | | - LABORATORY | | [...] [address] | [place] | [phone] | | [facility] | | [address] | | | - LABORATORY | | [...] ST. | [address] | [place] | [phone] | | [facility] | | [address] | | | - LABORATORY | | [...] [address] | [place] | [phone] | | [facility] | | [address] | | | - LABORATORY | | [...] KIRIT | | | | | | Mariana [...] + | [facility] | [address] | [place] | [phone] | | [facility] | | [address] | | | - LABORATORY | | [...] | | | | M/uL | [facility] | | | | | | MEDICAL | | | | | | CENTER - | | | | | | LABORATORY | | + + + + + + | Hemoglobin | 11.4 (L) | 13.5 - 18.0 | [facility] | | | | | g/dL | [facility] | | | | [...] | Basophils | | K/uL | [facility] | [...] ST. | [address] | [place] | [phone] | | [facility] | | [address] | | | - LABORATORY | | [...] | | | FILTRATION | mL/min/1.73m2 | [facility] | | | SOLOMON ISLANDER | RATE,ESTIMATED | | MEDICAL | | | | mL/min/1.18p8Oorx than | | CENTER - | | [...] | | | | | mg/dL | [facility] | | | | | [...] [address] | [place] | [phone] | | [facility] | | [address] | | | - LABORATORY | | [...] [address] | [place] | [phone] | | [facility] | | [address] | | | - LABORATORY | | [...] + | [facility] | [address] | [place] | [phone] | | [facility] | | [address] | | | - LABORATORY | | | | + + + + + Surgical Pathology Exam (11/21/2017 12:00 AM PDT) + + | Specimen | + + | | + + + + + | Narrative | Performed At | + + + | SPECIMEN(S): A RIGHT 5TH MEATATRSAL SPECIMEN SOURCE: A. RIGHT | [place] [facility] | | 5TH MEATATRSAL CLINICAL HISTORY: 5th metatarsal diabetic | [facility] | | infection. FINAL PATHOLOGIC DIAGNOSIS: Right 5th metatarsal: - | | | Bone with focal serous fat necrosis with associated acute and | | | chronic inflammation suggestive of osteomyelitis. JVR:[facility]:C2NR | | | MICROSCOPIC EXAMINATION: Histologic sections [...] decalcified in decal | | | STAT).. am:AMB:[facility] PERFORMING LABORATORY: The technical | | | component was performed by [employer], [address] [place] [address] | | | [facility] [address] (Pressure Control Supervisor: Khadra Gill MD; CLIA# | | | [id number]). Professional interpretation was performed by [facility] | | | [place], [address] | | | [facility] [address] [place] [address] (Pressure Control Supervisor: Ambrosio | | | [place]). Diagnostician: Ambrosio Hall MD | | | Pathologist Electronically Signed 11/23/2017 | | + + + + +---------+ + + | Performing | Address | City/State/Zipcode | Phone Number | | Organization | | | | + +---------+ + + | [facility] | | | | | [place] | | | | + +---------+ + [...] [address] | [place] | [phone] | | [facility] | | [address] | | | - LABORATORY | | [...] | | | | | | n [place] | | | | | + +---------+ [...] [address] | [place] | [phone] | | [facility] | | [address] | | | - LABORATORY | | [...] + | Performed at: 01 - [facility] [place] [address], | REFERENCE LAB | | [place], [place] [address] Steel Plate Printer: Jurgen Costa MD, Phone: | [facility] | | [phone] | | + + + + + + + + | Performing | Address | City/State/Zipcode | Phone Number | | Organization | | | | + + + + + | REFERENCE LAB | [address] | [place] [address] | [phone] | | [facility] | Drive [...] [address] | [place] | [phone] | | [facility] | | [address] | | | - LABORATORY | | | | + + + + + Sedimentation Rate (11/20/2017 11:35 AM PDT) + +--------+ + + + | Component | Value | Ref Range | Performed | Pathologist | | | | | At | Signature | + +--------+ + + + | ESR | 59 (H) | <20 mm/hr | [facility] | | | | | [...] [address] | [place] | [phone] | | [facility] | | [address] | | | - LABORATORY | | | | + + + + + C-Reactive Protein (11/20/2017 11:35 AM PDT) + + + + + + | Component | Value | Ref Range | Performed | Pathologist | | | | | At | Signature | + + + + + + | CRP | 185.35 (H) | <8.00 mg/L | [facility] | | | | | [...] + | [facility] | [address] | [place] | [phone] | | [facility] | | [address] | | | - LABORATORY | | [...] + + | [facility] | [address] | [place] | [phone] | | [facility] | | [address] | | | - LABORATORY | | [...] + | [facility] | [address] | [place] | [phone] | | [facility] | | [address] | | | - LABORATORY | | [...] ST. | [address] | [place] | [phone] | | [facility] | | [address] | | | - LABORATORY | | [...] [address] | [place] | [phone] | | [facility] | | [address] | | | - LABORATORY | | [...] KIRIT | | | | | | [facility] | | | | | | MEDICAL [...] + | [facility] | [address] | [place] | [phone] | | [facility] | | [address] | | | - LABORATORY | | [...] [address] | [place] | [phone] | | [facility] | | [address] | | | - LABORATORY | | [...] | | | FILTRATION | mL/min/1.73m2 | [facility] | | | SOLOMON ISLANDER | RATE,ESTIMATED | | MEDICAL | | | | mL/min/1.68v0Hfie than | | CENTER - | | [...] | | | | | mg/dL | [facility] | | | | | [...] [address] | [place] | [phone] | | [facility] | | [address] | | | - LABORATORY | | [...] [address] | [place] | [phone] | | [facility] | | [address] | | | - LABORATORY | | [...] + | [facility] | [address] | [place] | [phone] | | [facility] | | [address] | | | - LABORATORY | | [...] ST. | [address] | [place] | [phone] | | [facility] | | [address] | | | - LABORATORY | | [...] [address] | [place] | [phone] | | [facility] | | [address] | | | - LABORATORY | | [...] + | [facility] | [address] | [place] | [phone] | | [facility] | | [address] | | | - LABORATORY | | [...] + | [facility] | [address] | [place] | [phone] | | [facility] | | [address] | | | - LABORATORY | | [...] | | | | incubation. | | [facility] | | | [...] [address] | [place] | [phone] | | [facility] | | [address] | | | - LABORATORY | | [...] + | [facility] | [address] | [place] | [phone] | | [facility] | | [address] | | | - LABORATORY | | [...] | | | FILTRATION | mL/min/1.73m2 | [facility] | | | SOLOMON ISLANDER | RATE,ESTIMATED | | MEDICAL | | | | mL/min/1.74q4Pfcc than | | CENTER - | | [...] | | | | | mg/dL | [facility] | | | | | [...] + + | Performing | Address | City/State/[facility]code | Phone Number | | Organization | | | | + + + + + | [facility]. | [address] | [place] | [phone] | | [facility] | | [address] | | | - LABORATORY | | [...] | | | | | g/dL | . [facility] | | | | [...] | Basophils | | K/uL | [facility] | | | | | | MEDICAL [...] [address] | [place] | [phone] | | [facility] | | [address] | | | - LABORATORY | | [...] or fluid overload. Dictated and Signed by: iRco Santiago | | | Electronically signed: 11/19/2017 [...] | Eliel Ornelas Results In - 11/19/2017 4:21 PM PDT [...] + + | Performing | Address | City/State/[place] Service Unitcode | Phone Number | | Organization | [...] | REFERENCE | | | | of [place] | | LAB [facility] | | | | standards require a | | - [facility] | | | | culture to beperformed | | | | | | on CSF specimens | | | | | | submitted for bacterial | | | | | | antigen testing.(CAP | | | | | | [id number]) Urine | | | | | | specimens will not be | | | | | | cultured. | | | | + + + + + + + + | Specimen | + + | Urine | + + + + + | Narrative | Performed At | + + + | Performed at: 01 - [facility] [address] [facility], | REFERENCE LAB | | [place], [place] [address] Steel Plate Printer: Christ Deal MD, Phone: | NIKKI MONZON | | [phone] | | + + + + + + + + | Performing | Address | City/State/Zipcode | Phone Number | | Organization | | | | + + + + + | REFERENCE LAB | [address] | [place] [address] | [phone] | | NIKKI - N[place] | Drive [facility] | | | + + + + [...] | | | Positive FloraComment: | | [facility] | | | | Suggests contamination [...] [address] | [place] | [phone] | | [facility] | | [address] | | | - LABORATORY | | [...] - 1.030 | [facility] | | | [place] | | | [facility] | | [...] n, Urine | | mg/dL, Negative | [facility] | | | | [...] | | COMMENT | Indicated | | [facility] | | | [...] PALMER. | [address] | [place] | [phone] | | [facility] | | [address] | | | - LABORATORY | | [...] | | | | | | use [place] 10/325 if ordered. If | | | [...] scheduled: AC, NPO, Daytime | | | 9816-4337 Use NIGHT DOSE for | | | doses scheduled: HS, 3AM, | | | Nighttime 6878-8786, | | + +---+ | | | [...]
--- OUTSIDE RECORDS SUMMARY | ~2019-04-05 | XMS | Encounter Summary ---
Demographics + + + | Address | [address] | | | [place] [address] | + + + | Home Phone [...] | Organization | [facility] | | | and [place] | + + + | Address | Unknown | + + + | Phone | Unavailable | + + + Support + + + + + | Name | Relationship | Address | Phone | + + + + + | Jessica Shepard | ECON | [address] | | | | | [place] | | | | | [address] | | + + + + + | Bel Solis | ECON | Unknown | | + + + + + | José Shepard | ECON | [place] | | | | | [address] | | + + + + + | Jessica Shepard | ECON | Unknown | | + + + + + Care Team Providers + +------+ + | Care Ostrich Farmer Name | Role | Phone | + +------+ + | Dian Lr NP | PCP | | + +------+ + Encounter Details +--------+ + + + + | Date | Type | Department | Care Team | Description | +--------+ + + + + | 07/31/ | Orders Only | [facility] | Conversion | | | 2019 | | INFECTIOUS DISEASE | Transaction, | | | | | [address] | Provider Unknown | | | | | [place] | [phone] | | | | | [address] | | | | | | [phone] | | | +--------+ + + + [...]
--- OUTSIDE RECORDS SUMMARY | ~2019-04-05 | XMS | Encounter Summary ---
Demographics + + + | Address | [address] | | | [place] [address] | + + + | Home Phone | | + + + | Preferred Language | Unknown | + + + | Marital Status | | + + + | Spiritism Affiliation | 1076 | + + + | Race | Unknown | + + + | Ethnic Group | Unknown | + + + Author + + + | Author | [facility] | | | and [place] | + + + | Organization | [facility] | | | and [place] | + + + | Address | Unknown | + + + | Phone | Unavailable | + + + Support + + + + + | Name | Relationship | Address | Phone | + + + + + | Jessica Shepard | ECON | [address] | | | | | [place] | | | | | [address] | | + + + + + | Bel Solis | ECON | Unknown | | + + + + + | José Shepard | ECON | [place] | | | | | [address] | | + + + + + | Jessica Shepard | ECON | Unknown | | + + + + + Care Team Providers + +------+ + | Care Siding Applicator Name | Role | Phone | + +------+ + | Dian Lr NP | PCP | | + +------+ + Encounter Details +--------+ + + + + | Date | Type | Department | Care Team | Description | +--------+ + + + + | 05/14/ | Hospital | [facility] | Conversion | Pain | | 2017 | Encounter | CONVERSION [address] | Transaction, | | | | | [address] | Provider Unknown | | | | | [place] | [phone] | | | | | [address] | | | | | | [phone] | | | +--------+ + + + [...]
--- OUTSIDE RECORDS SUMMARY | ~2019-04-05 | XMS | Clinical Summary ---
Demographics + + + | Address | [address] | | | [place] [address] | + + + | Home Phone | | + + + | Preferred Language | Unknown | + + + | Marital Status | | + + + | Bahai Affiliation | 1076 | + + + | Race | Unknown | + + + | Ethnic Group | Unknown | + + + Author + + + | Author | [facility] (Historical as of | | | 11-04-18) | + + + | Organization | [facility] (Historical as of | | | [...] Team Providers + +------+ + | Care Combat Systems Engineer Name | Role | Phone | [...] + + + | Overview: Problem List Rn Teacher Utility | + + + + + | Acute left hemiparesis (HCC) | 05/14/2016 | + + + | Type 2 diabetes mellitus with hyperglycemia, with long-term | 05/14/2016 | | current use of insulin ([facility]) | | + + + | Ischemic [...] + + | MEDICARE | MEDICA | [id number] | | | [address] | | | RE | | | | [place] [address] | | | IP-OP | | | | | + +--------+ +------+ + + | [employer] | V[employer] | [id number] | | [phone] [employer] [id number] | | ADMINISTRATION | [place] | | | [phone] | | | ADMINI | | | | [place] | | | [place] | | | | [phone] | | | ON | | | [...] | Self | [birth year] | Home: | [address] | | | al/Fam | | 7 | +- | [place] | | | carlos | | | [phone] | [address] | + +--------+ +--------+ + + | SAROJ AMEZQUITA | Vetera | Self | [birth year] | Home: | [address] | | | ns | | 1944 | +- | [place] | | | Admini | | | [phone] | [phone] | | | strati | | | | | | | on | | | | | + +--------+ +--------+ + +
--- OUTSIDE RECORDS SUMMARY | ~2019-04-05 | XMS | Encounter Summary ---
Demographics + + + | Address | [address] | | | [place] [address] | + + + | Home Phone | | + + + | Preferred Language | Unknown | + + + | Marital Status | | + + + | Scientologist Affiliation | [id number] | + + + | Race | Unknown | + + + | Ethnic Group | Unknown | + + + Author + + + | Author | [facility] | | | and [place] | + + + | Organization | [facility] | | | and [place] | + + + | Address | Unknown | + + + | Phone | Unavailable | + + + Support + + + + + | Name | Relationship | Address | Phone | + + + + + | Jessica Shepard | ECON | [address] | | | | | [place] | | | | | [address] | | + + + + + | Bel Solis | ECON | Unknown | | + + + + + | José Shepard | ECON | [place] | | | | | [address] | | + + + + + | Jessica Shepard | ECON | Unknown | | + + + + + Care Team Providers + +------+ + | Care Customer Complaint Clerk Name | Role | Phone | [...] + + | 11/19/ | Hospital | [facility] | Jurgen Casiano | initial | | 2018 - | Encounter | [facility] | MD Shayne [address] | encounter (Primary | | | | [address] [place] | [address] [place] | Dx); Fever, | | 11/25/ | | [place] [address] | [place] [address] | unspecified fever | | 2018 | | [phone] | [phone] | cause; Pneumonia due | | | | | | to infectious | | | | | Gray Perea MD | organism, | | | | | [address] | unspecified | | | | | [place], [place] | laterality, | | | | | [address] | unspecified part of | | | | | | lung; Sepsis, due to | | | | | Mil Sandoval MD | unspecified | | | | | [address] | organism (HCC); | | | | | [place], [place] | Insulin dependent | | | | | [address] | diabetes mellitus | | | | | | ([facility]); Other chronic | | | | | | osteomyelitis of | | | | | | right foot ([facility]); | | | | | | Peripheral vascular | | | | | | disease ([facility]) | +--------+ + + + + [...] other anesthesia was used during the case. [facility] lower extremity was then scrubbed, prepped [...] -PT/OT ordered Code Status: Full Code Disposition: [facility] Discharge Condition: Stable, very deconditioned and weak at baseline Pleasant, no distress RRR, no m/r/g CTA bilaterally Soft, obese, NT Ext WWP, right foot ulcer with deep wound, slight purulent drainage Contact information for after-discharge care Placement Destination [facility] . Specialty: [facility] Facility Contact information: [address] [place] [address] Discharge Medications New Medications Details acetaminophen [...] signed by: Justin Reyna MD, 11/25/2017 13:01 [facility] documented in this encounter Medications at Time [...] might be different f rom the original. [facility] Hospitalist Progress Note Reagan Shepard is [...] pantoprazole Mechanical fall -PT/OT ordered Disposition : [facility] as soon as 11/25 Prophylaxis : [...] as outlined above. Justin Reyna 11/24/2017 18:16 [facility] Sang Duff MD - 11/24/2017 1:59 PM PDTWe are evaluating the patient for further medical rehabilitatio n services. He does not qualify per CMS guidelines for full inpatient rehab . I recommend he be transferred to SNF for further skilled therapies once he is cleared acute ly. Justin Rodriguez MD - 11/23/2017 2:24 PM PDT [facility] Hospitalist Progress Note Reagan Shepard is [...] as outlined above. Justin Reyna 11/23/2017 14:24 [facility] ornia, Simone Voss DPM - 11/23/2017 1:58 PM PDT Foot & Ankle Surgery Progress Note Simone Aceves DPM Reagan Shepard Age/Gender 72 y.o. male Location [facility] Attending Mil Sandoval MD Hosp [...] Value Units Date/Time Culture, Wound, Smear, w/Anaerobe [[id number]] Collected: 11/21/171207 Order Status: Sent Lab Status: In process Updated: 11/21/17 125 Specimen: Tissue from Toe, Fifth/Small, Right Narrative: The following orders were created for panel order Culture, Wound, Smear, w/Anaerobe. Procedure Abnormality Status --------- ------ Culture, Wound, Smear[[id number]] In process Culture, Anaerobic[[id number]] In process Please view results for these tests on the individual orders. 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 Justin Reyna 11/22/2017 17:40 [facility] anielle Guillermo, Case Advocate - 11/22/2017 2:13 PM PDTFormatting of this [...] Diabetes mellitus (HCC); Stroke (cerebrum) ([facility]); an d TBI (traumatic brain injury) ([facility]). No risk factors for MDR organisms. [...] Value Units Date/Time Culture, Wound, Smear, w/Anaerobe [[id number]] Collected: 11/21/17 1208 Order Status: Sent Lab Status: In process Updated: 11/21/17 1250 Specimen: Tissue from Toe, Fifth/Small, Right Narrative: The following orders were created for panel order Culture, Wound, Smear, w/Anaerobe. Procedure Abnormality Status --------- ------ Culture, Wound, Smear[[id number]] Preliminary result Culture, Anaerobic[[id number]] In process Please view results for these tests on the individual orders. Culture, Wound, Smear [[id number]] Collected: 11/21/17 1208 Order Status: Completed Lab Status: Preliminary result Updated: 11/22/17 1021 Specimen: Tissue from Toe, Fifth/Small, Right Culture 2+ Lactose Fermenting Gram Negative Bacilli Comment: Identification and susceptibility to follow. Gram Stain Result 2+ White Blood Cells 1+ Epithelial cells 2+ Gram negative rods Culture, Anaerobic [[id number]] Collected: 11/21/17 1208 Order Status: Sent Lab Status: In process Updated: 11/21/17 1250 Specimen: Tissue from Toe, Fifth/Small, Right Respiratory Virus Panel, NAAT [[id number]] Collected: 11/20/17 1257 Order Status: Completed Lab [...] pneumoniae DNA Not Detected Narrative: Performed at: [address] [place] [address] [id number] Copywriter: Jurgen Costa MD, Phone: [phone] Culture, Wound, Smear [[id number]] (Susceptibility) Collected: 11/20/17 0825 Order Status: Completed [...] Sulfamethoxazole <=20 ug/mL Sensitive Culture, Wound, Smear [[id number]] (Susceptibility) Collected: 11/19/172030 Order Status: Completed Lab [...] no longer reported. Culture, Respiratory, Lower, Smear [[id number]] Order Status: Sent Lab Status: No result Specimen: Body Fluid from Sputum, Expectorated Culture, Wound, Smear [[id number]] Order Status: Canceled Lab Status: No result Specimen: Tissue from Leg, Left Culture, Blood [[id number]] (Normal) Collected: 11/19/17 1537 Order Status: Completed Lab Status: Preliminary result Updated: 11/20/17 0351 Specimen: Blood from Peripheral Blood Culture No growth: Monitored continually by instrument for 5 days Culture, Blood [[id number]] (Normal) Collected: 11/19/17 1506 Order Status: Completed Lab Status: Preliminary result Updated: 11/20/17 0321 Specimen: Blood from Peripheral Blood Culture No growth: Monitored continually by instrument for 5 days Culture, Urine [[id number]] Collected: 11/19/17 1416 Order Status: Completed Lab [...] Monitoring Protocol Electronically signed by: Danielle Guillermo, Case Advocate 11/22/2017 14:13 Associated attestation - Luther Hampton, [...] Reagan Shepard Age/Gender 72 y.o. male Location [facility] Attending Mil Sandoval MD Hosp [...] Value Units Date/Time Culture, Wound, Smear, w/Anaerobe [[id number]] Collected: 11/21/17 1208 Order Status: Sent Lab Status: In process Updated: 11/21/17 1250 Specimen: Tissue from Toe, Fifth/Small, Right Narrative: The following orders were created for panel order Culture, Wound, Smear, w/Anaerobe. Procedure Abnormality Status --------- ------ Culture, Wound, Smear[[id number]] In process Culture, Anaerobic[[id number]] In process Please view results for these tests on the individual orders. Culture, Wound, Smear [[id number]] Collected: 11/21/17 1208 Order Status: Sent Lab Status: In process Updated: 11/21/17 1250 Specimen: Tissue from Toe, Fifth/Small, Right Culture, Anaerobic [[id number]] Collected: 11/21/17 1208 Order Status: Sent Lab [...] Diabetes mellitus (HCC); Stroke (cerebrum) ([facility]); an d TBI (traumatic brain injury) ([facility]). . No risk factors for MDR [...] Value Units Date/Time Culture, Wound, Smear, w/Anaerobe [[id number]] Collected: 11/21/17 120 Order Status: Sent Lab Status: In process Updated: 11/21/17 1250 Specimen: Tissue from Toe, Fifth/Small, Right Narrative: The following orders were created for panel order Culture, Wound, Smear, w/Anaerobe. Procedure Abnormality Status --------- ------ Culture, Wound, Smear[[id number]] In process Culture, Anaerobic[[id number]] In process Please view results for these tests on the individual orders. Culture, Wound, Smear [[id number]] Collected: 11/21/17 120 Order Status: Sent Lab Status: In process Updated: 11/21/17 1250 Specimen: Tissue from Toe, Fifth/Small, Right Culture, Anaerobic [[id number]] Collected: 11/21/171207 Order Status: Sent Lab Status: In process Updated: 11/21/17 1250 Specimen: Tissue from Toe, Fifth/Small, Right Respiratory Virus Panel, NAAT [[id number]] Collected: 11/20/17 1257 Order Status: Sent Lab Status: In process Updated: 11/20/17 1302 Specimen: Tissue from Nasopharynx Culture, Wound, Smear [[id number]] Collected: 11/20/17 0825 Order Status: Completed Lab Status: Preliminary result Updated: 11/21/17 0739 Specimen: Tissue from Foot, Right Culture 1+ Gram Negative Jayesh, NOT Pseudomonas Comment: Identification and susceptibility to follow. 1+ Gram Positive Cocci Comment: Isolating for additional information. Gram Stain Result 1+ White Blood Cells No organisms seen Culture, Wound, Smear [[id number]] (Susceptibility) Collected: 11/19/172030 Order Status: Completed Lab [...] <=20 ug/mL Sensitive Culture, Respiratory, Lower, Smear [[id number]] Order Status: Sent Lab Status: No result Specimen: Body Fluid from Sputum, Expectorated Culture, Wound, Smear [[id number]] Order Status: Canceled Lab Status: No result Specimen: Tissue from Leg, Left Culture, Blood [[id number]] (Normal) Collected: 11/19/17 1537 Order Status: Completed Lab Status: Preliminary result Updated: 11/20/17 0351 Specimen: Blood from Peripheral Blood Culture No growth: Monitored continually by instrument for 5 days Culture, Blood [[id number]] (Normal) Collected: 11/19/17 1506 Order Status: Completed Lab Status: Preliminary result Updated: 11/20/17 0321 Specimen: Blood from Peripheral Blood Culture No growth: Monitored continually by instrument for 5 days Culture, Urine [[id number]] Collected: 11/19/17 1416 Order Status: Completed Lab [...] Hoff MD - 11/21/2017 11:05 AM PDT [place], [place] HOSPITALIST PROGRESS NOTE Patient: Reagan Shepard : 1945: Age: 72 y.o. MedRec: [id number] Admission date: 11/19/2017 Hospital day # : [...] H) rectal ointment Rectal 4x Daily PRN aNsim Jimenez MD piperacillin-tazobactam (ZOSYN) 3.375 g in [...] E' Septal Velocity 4.79 cm/s MV Deceleration Morris 336.24 cm/s2 MV Deceleration Time 332.96 msec [...] Value Units Date/Time Respiratory Virus Panel, NAAT [[id number]] Collected: 11/20/17 1257 Order Status: Sent Lab Status: In process Updated: 11/20/17 1302 Specimen: Tissue from Nasopharynx Culture, Wound, Smear [[id number]] Collected: 11/20/17 0825 Order Status: Completed Lab Status: Preliminary result Updated: 11/21/17 0739 Specimen: Tissue from Foot, Right Culture 1+ Gram Negative Jayesh, NOT Pseudomonas Comment: Identification and susceptibility to follow. 1+ Gram Positive Cocci Comment: Isolating for additional information. Gram Stain Result 1+ White Blood Cells No organisms seen Culture, Wound, Smear [[id number]] (Susceptibility) Collected: 11/19/172030 Order Status: Completed Lab [...] + Sulfamethoxazole <=20 ug/mL Sensitive Culture, Blood [[id number]] (Normal) Collected: 11/19/17 1537 Order Status: Completed Lab Status: Preliminary result Updated: 11/20/17 0351 Specimen: Blood from Peripheral Blood Culture No growth: Monitored continually by instrument for 5 days Culture, Blood [[id number]] (Normal) Collected: 11/19/17 1506 Order Status: Completed Lab Status: Preliminary result Updated: 11/20/17 0321 Specimen: Blood from Peripheral Blood Culture No growth: Monitored continually by instrument for 5 days Culture, Urine [[id number]] Collected: 11/19/17 1416 Order Status: Completed Lab [...] Other Pharmacy Consult Nasim Jimenez 11/21/2017 11:05 [facility] Nasim Hoff MD - 11/20/2017 10:04 AM PDT [facility] H[facility]ITAL[facility] PROGRESS NOTE Patient: Reagan Shepard : 1945: Age: 72 y.o. MedRec: [id number] Admission date: 11/19/2017 Hospital day # : [...] PH UA 5.0 5.0 - 8.0 Specific [place] 1.017 1.001 - 1.030 PROTEIN UA 30 [...] Component Value Units Date/Time Culture, Wound, Smear [[id number]] Collected: 11/20/17 0825 Order Status: Sent Lab Status: In process Updated: 11/20/17 0829 Specimen: Tissue from Foot, Right Culture, Wound, Smear [[id number]] Collected: 11/19/17 203 Order Status: Completed Lab Status: Preliminary result Updated: 11/20/17 09 Specimen: Tissue from Leg, Lower, Right Culture 2+ Gram Negative Jayesh, NOT Pseudomonas Comment: Identification and susceptibility to follow. 1+ Gram Positive Cocci Comment: Isolating for additional information. Gram Stain Result No white blood cells (PMNs) seen 1+ Gram negative rods Culture, Blood [[id number]] (Normal) Collected: 11/19/17 1537 Order Status: Completed Lab Status: Preliminary result Updated: 11/20/17 0351 Specimen: Blood from Peripheral Blood Culture No growth: Monitored continually by instrument for 5 days Culture, Blood [[id number]] (Normal) Collected: 11/19/17 1506 Order Status: Completed Lab Status: Preliminary result Updated: 11/20/17 0321 Specimen: Blood from Peripheral Blood Culture No growth: Monitored continually by instrument for 5 days Culture, Urine [[id number]] (Normal) Collected: 11/19/17 1416 Order Status: Completed [...] Other Pharmacy Consult Nasim Jimenez 11/20/2017 10:05 [facility] Khadra Mac Phar mD - 11/20/2017 [...] Diabetes mellitus (HCC); Stroke (cerebrum) ([facility]); an d TBI (traumatic brain injury) ([facility]). . No risk factors for MDR [...] Component Value Units Date/Time Culture, Wound, Smear [[id number]] Collected: 11/20/17 0825 Order Status: Sent Lab Status: In process Updated: 11/20/17 08 Specimen: Tissue from Foot, Right Culture, Wound, Smear [[id number]] Collected: 11/19/172030 Order Status: Completed Lab Status: Preliminary result Updated: 11/20/17 09 Specimen: Tissue from Leg, Lower, Right Culture 2+ Gram Negative Jayesh, NOT Pseudomonas Comment: Identification and susceptibility to follow. 1+ Gram Positive Cocci Comment: Isolating for additional information. Gram Stain Result No white blood cells (PMNs) seen 1+ Gram negative rods Culture, Respiratory, Lower, Smear [[id number]] Order Status: Sent Lab Status: No result Specimen: Body Fluid from Sputum, Expectorated Culture, Wound, Smear [[id number]] Order Status: Canceled Lab Status: No result Specimen: Tissue from Leg, Left Culture, Blood [[id number]] (Normal) Collected: 11/19/17 1537 Order Status: Completed Lab Status: Preliminary result Updated: 11/20/17 0351 Specimen: Blood from Peripheral Blood Culture No growth: Monitored continually by instrument for 5 days Culture, Blood [[id number]] (Normal) Collected: 11/19/17 1506 Order Status: Completed Lab Status: Preliminary result Updated: 11/20/17 0321 Specimen: Blood from Peripheral Blood Culture No growth: Monitored continually by instrument for 5 days Culture, Urine [[id number]] (Normal) Collected: 11/19/17 1416 Order Status: Completed [...] d TBI (traumatic brain injury) ([facility]). . No risk factors for MDR [...] Value Units Date/Time Culture, Respiratory, Lower, Smear [[id number]] Order Status: Sent Lab Status: No result Specimen: Body Fluid from Sputum, Expectorated Culture, Wound, Smear [[id number]] Order Status: Sent Lab Status: No result Specimen: Tissue from Leg, Left Culture, Blood [[id number]] Collected: 11/19/17 1537 Order Status: Sent Lab Status: In process Updated: 11/19/17 1543 Specimen: Blood from Peripheral Blood Culture, Blood [[id number]] Collected: 11/19/17 1506 Order Status: Sent Lab Status: In process Updated: 11/19/17 1511 Specimen: Blood from Peripheral Blood Culture, Urine [[id number]] Collected: 11/19/17 1416 Order Status: Sent Lab [...] | | | PDT | ([facility]) | results section. | + +--------+ [...] K?MRN: | | | | | | [id number] | | | [id number] | | | his | | | [...] | | | ent/06 | | | u4199q | | | -9b07- | | | [...] | | | St. | | | [place] | | | y H. | | [...] | | | St. | | | [place] | | | y | | | [...] + | [facility] | [address] | [place] | [phone] | | [facility] | | [address] | | | - LABORATORY | | [...] [address] | [place] | [phone] | | [facility] | | [address] | | | - LABORATORY | | [...] + | [facility] | [address] | [place] | [phone] | | [facility] | | [address] | | | - LABORATORY | | [...] | mL/min/1.73m2 | [facility] | | | SWAZI | RATE,ESTIMATED | | MEDICAL | | | | mL/min/1.37p3Qncb than | | CENTER - | | [...] [address] | [place] | [phone] | | [facility] | | [address] | | | - LABORATORY | | [...] | Basophils | | K/uL | [facility] | | | | [...] ST. | [address] | [place] | [phone] | | [facility] | | [address] | | | - LABORATORY | | [...] | | POC | | | [facility]ariana [facility] | | | | [...] [address] | [place] | [phone] | | [facility] | | [address] | | | - LABORATORY | | [...] | | POC | | | Mariana [facility] | | | | [...] + | [facility] | [address] | [place] | [phone] | | [facility] | | [address] | | | - LABORATORY | | [...] [address] | [place] | [phone] | | [facility] | | [address] | | | - LABORATORY | | [...] + | [facility] | [address] | [place] | [phone] | | [facility] | | [address] | | | - LABORATORY | | [...] 16 | 7 - 18 mg/dL | [facility] | | | | | | [facility]iana [facility] | | | | | | MEDICAL | | | | | | CENTER - | | | | | | LABORATORY | | + + + + + + | Creatinine | 0.91 | 0.60 - 1.30 | [facility] | | | | | mg/dL [...] mL/min/1.73m2 | [facility] | | | SWAZI | RATE,ESTIMATED | | MEDICAL | | | | mL/min/1.44q2Wdom than | | CENTER - | | [...] [address] | [place] | [phone] | | [facility] | | [address] | | | - LABORATORY | | [...] | | Count | | | [facility] | | [...] [address] | [place] | [phone] | | [facility] | | [address] | | | - LABORATORY | | [...] [address] | [place] | [phone] | | [facility] | | [address] | | | - LABORATORY | | [...] + | [facility] | [address] | [place] | [phone] | | [facility] | | [address] | | | - LABORATORY | | [...] [address] | [place] | [phone] | | [facility] | | [address] | | | - LABORATORY | | [...] [address] | [place] | [phone] | | [facility] | | [address] | | | - LABORATORY | | [...] + | [facility] | [address] | [place] | [phone] | | [facility] | | [address] | | | - LABORATORY | | [...] mL/min/1.73m2 | [facility] | | | SWAZI | RATE,ESTIMATED | | MEDICAL | | | | mL/min/1.98e1Cptz than | | CENTER - | | [...] [address] | [place] | [phone] | | [facility] | | [address] | | | - LABORATORY | | [...] | Basophils | | K/uL | [facility]ariana [facility] | | | | [...] [address] | [place] | [phone] | | [facility] | | [address] | | | - LABORATORY | | [...] [address] | [place] | [phone] | | [facility] | | [address] | | | - LABORATORY | | [...] [address] | [place] | [phone] | | [facility] | | [address] | | | - LABORATORY | | [...] ST. | [address] | [place] | [phone] | | [facility] | | [address] | | | - LABORATORY | | [...] [address] | [place] | [phone] | | [facility] | | [address] | | | - LABORATORY | | [...] [address] | [place] | [phone] | | [facility] | | [address] | | | - LABORATORY | | [...] + | [facility] | [address] | [place] | [phone] | | [facility] | | [address] | | | - LABORATORY | | [...] [address] | [place] | [phone] | | [facility] | | [address] | | | - LABORATORY | | [...] mL/min/1.73m2 | [facility] | | | SWAZI | RATE,ESTIMATED | | MEDICAL | | | | mL/min/1.63r5Adtg than | | CENTER - | | [...] [address] | [place] | [phone] | | [facility] | | [address] | | | - LABORATORY | | [...] + | [facility] | [address] | [place] | [phone] | | [facility] | | [address] | | | - LABORATORY | | [...] [address] | [place] | [phone] | | [facility] | | [address] | | | - LABORATORY | | [...] | | | POC | | | [facility] | | | | [...] [address] | [place] | [phone] | | [facility] | | [address] | | | - LABORATORY | | [...] [address] | [place] | [phone] | | [facility] | | [address] | | | - LABORATORY | | [...] | | | aerogenesComment: | | [facility] | | | | Consider [...] + | [facility] | [address] | [place] | [phone] | | [facility] | | [address] | | | - LABORATORY | | [...] [address] | [place] | [phone] | | [facility] | | [address] | | | - LABORATORY | | [...] [address] | [place] | [phone] | | [facility] | | [address] | | | - LABORATORY | | [...] + | No immature cells seen | [facility] | | | [facility] | | | [facility] | | | - LABORATORY | + + + + + + + + | Performing | Address | City/State/Zipcode | Phone Number | | Organization | | | | + + + + + | [facility] | [address] | [place] | [phone] | | [facility] | | [address] | | | - LABORATORY | | [...] [address] | [place] | [phone] | | [facility] | | [address] | | | - LABORATORY | | [...] + | [facility] | [address] | [place] | [phone] | | [facility] | | [address] | | | - LABORATORY | | [...] [address] | [place] | [phone] | | [facility] | | [address] | | | - LABORATORY | | [...] [address] | [place] | [phone] | | [facility] | | [address] | | | - LABORATORY | | [...] + | [facility] | [address] | [place] Gutier[place] | [phone] | | [facility] | | [address] | | | - LABORATORY | | [...] | | | | | mmol/L | [facility] | | | | [...] | mL/min/1.73m2 | ELY | | | SWAZI | RATE,ESTIMATED | | MEDICAL | | | | mL/min/1.35n7Mcuy than | | CENTER - | | [...] ST. | [address] | [place], [place] | [phone] | | [facility] | | [address] | | | - LABORATORY | | [...] + | [facility] | [address] | [place] | [phone] | | [facility] | | [address] | | | - LABORATORY | | [...] ST. | [address] | [place], [place] | [phone] | | [facility] | | [address] | | | - LABORATORY | | | | + + + + + Surgical Pathology Exam (11/21/2017 12:00 AM PDT) + + | Specimen | + + | | + + + + + | Narrative | Performed At | + + + | SPECIMEN(S): A RIGHT 5TH MEATATRSAL SPECIMEN SOURCE: A. RIGHT [facility] | | 5TH MEATATRSAL CLINICAL HISTORY: 5th metatarsal diabetic | INCYTE | | infection. FINAL PATHOLOGIC DIAGNOSIS: Right 5th metatarsal: - | | | Bone with focal serous fat necrosis with associated acute and | | | chronic inflammation suggestive of osteomyelitis. JVR:[facility]:C2NR | | | MICROSCOPIC EXAMINATION: Histologic sections [...] decal | | | STAT).. am:AMB:[facility] PERFORMING LABORATORY: The technical | | | component was performed by [facility], [address] [place] [address], | | | [facility] [address] (Cyberathlete: Khadra Gill MD; CLIA# | | | [id number]). Professional interpretation was performed by [facility] | | | [facility], [address] | | | [address] [place] [address] (Cyberathlete: Ambrosio | | | [place]). Diagnostician: [...] | | | POC | | | [facility] | | | | [...] [address] | [place] | [phone] | | [facility] | | [address] | | | - LABORATORY | | [...] | | | | | | n Morris | | | | | + +---------+ [...] + + + + | [facility] | [address] | [place] | [phone] | | [facility] | | [address] | | | - LABORATORY | | [...] + | Performed at: 01 - [facility] [place] [address], | REFERENCE LAB | | [place], [place] [id number] Copywriter: Jurgen Costa MD, Phone: | NIKKI MONZON | | [phone] | | + + + + + + + + | Performing | Address | City/State/Zipcode | Phone Number | | Organization | | | | + + + + + | REFERENCE LAB | [address] | [place] [address] | [phone] | | [facility] | Drive [...] + | [facility] | [address] | [place] | [phone] | | [facility] | | [address] | | | - LABORATORY | | [address] | [place] | [phone] | | [facility] | | [address] | | | - LABORATORY | | [...] [address] | [place] | [phone] | | [facility] | | [address] | | | - LABORATORY | | [address] | [place] | [phone] | | [facility] | | [address] | | | - LABORATORY | | [...] [address] | [place] | [phone] | | [facility] | | [address] | | | - LABORATORY | | [...] + | [facility] | [address] | [place] | [phone] | | [facility] | | [address] | | | - LABORATORY | | [address] | [place] | [phone] | | [facility] | | [address] | | | - LABORATORY | | [...] [address] | [place] | [phone] | | [facility] | | [address] | | | - LABORATORY | | [...] [address] | [place] | [phone] | | [facility] | | [address] | | | - LABORATORY | | [...] 15 | 7 - 18 mg/dL | [facility] | | | | | | [facility] | | | | | | MEDICAL | | | | | | CENTER - | | | | | | LABORATORY | | + + + + + + | Creatinine | 0.91 | 0.60 - 1.30 | [facility] | | | | | mg/dL | [facility] | | | | | | MEDICAL | | | | | | CENTER - | | | | | | LABORATORY | | + + + + + + | eGFR if not | >60Comment: GLOMERULAR | >=60 | [facility] | | | | FILTRATION | mL/min/1.73m2 | [facility] | | | SWAZI | RATE,ESTIMATED | | MEDICAL | | | | mL/min/1.62s5Zgps than | | CENTER - | | [...] + | [facility] | [address] | [place] | [phone] | | [facility] | | [address] | | | - LABORATORY | | [...] | | POC | | | [facility] | | | | [address] | [place] | [phone] | | [facility] | | [address] | | | - LABORATORY | | [...] + | [facility] | [address] | [place] | [phone] | | [facility] | | [address] | | | - LABORATORY | | [...] | | | | aerogenesComment: | | [facility] | | | | Consider [...] [address] | [place] | [phone] | | [facility] | | [address] | | | - LABORATORY | | [...] | | | POC | | | [facility] | | | | | | MEDICAL [...] + | [facility] | [address] | [place] | [phone] | | [facility] | | [address] | | | - LABORATORY | | [...] [address] | [place] | [phone] | | [facility] | | [address] | | | - LABORATORY | | [...] [address] | [place] | [phone] | | [facility] | | [address] | | | - LABORATORY | | [...] [address] | [place] | [phone] | | [facility] | | [address] | | | - LABORATORY | | [...] [address] | [place] | [phone] | | [facility] | | [address] | | | - LABORATORY | | [...] 16 | 7 - 18 mg/dL | [facility] | | | | | | [facility] | | | | | | MEDICAL | | | | | | CENTER - | | | | | | LABORATORY | | + + + + + + | Creatinine | 0.76 | 0.60 - 1.30 | [place] | | | | | mg/dL | [facility] | | | | | | MEDICAL | | | | | | CENTER - | | | | | | LABORATORY | | + + + + + + | eGFR if not | >60Comment: GLOMERULAR | >=60 | [place] | | | | FILTRATION | mL/min/1.73m2 | Mariana [facility] | | | SWAZI | RATE,ESTIMATED | | MEDICAL | | | | mL/min/1.99f2Rqme than | | CENTER - | | [...] + | [facility] | [address] | [place] | [phone] | | [facility] | | [address] | | | - LABORATORY | | [...] + | [facility] | [address] | [place] | [phone] | | [facility] | | [address] | | | - LABORATORY | | [...] | REFERENCE | | | | of [place] Pathologists | | LAB [facility] | | | | standards require a | | - [facility] | | | | culture to beperformed | | | | | | on CSF specimens | | | | | | submitted for bacterial | | | | | | antigen testing.(CAP | | | | | | [id number]) Urine | | | | | | [...] Ye Carranza, | REFERENCE LAB | | [place], [place] [id number] Copywriter: Christ Deal MD, Phone: | NIKKI - NICOLÁS | | [phone] | | + + + + + + + + | Performing | Address | City/State/Zipcode | Phone Number | | Organization | | | | + + + + + | REFERENCE LAB | [address] | [place] [address] | [phone] | | [facility] | Drive [...] + | [facility] | [address] | [place], [place] | [phone] | | [facility] | | [address] | | | - LABORATORY | | [...] - 1.030 | [facility] | | | [place] | | | [facility] | | [...] [address] | [place] | [phone] | | [facility] | | [address] | | | - LABORATORY | | [...] | | | | | | use [place] 10/325 if ordered. If | | | [...] | | | | last modification) on [facility] 11/24/17 | | | | | | [...] | | | | | | | [phone] Use NIGHT DOSE for | | | | | | | doses scheduled: HS, 3AM, | | | | | | | Nighttime 3487-5368, | | | | | | + [...] scheduled: AC, NPO, Daytime | | | 0514-6851 Use NIGHT DOSE for | | | doses scheduled: HS, 3AM, | | | Nighttime 1268-3952, | | + +---+ | | | [...] | | | | | | | 5783-7185 Use NIGHT DOSE for | | | | | | | doses scheduled: HS, 3AM, | | | | | | | Nighttime 2753-4248, | | | | | | + [...] | | | | | Subcutaneous, ONCE, [facility] 11/24/17 at | | | | | [...]
--- OUTSIDE RECORDS SUMMARY | ~2019-04-05 | XMS | Encounter Summary ---
Demographics + + + | Address | [address] | | | [place] [address] | + + + | Home Phone [...] + | Organization | [facility] | | | and [place] | + + + | Address | Unknown | + + + | Phone | Unavailable | + + + Support + + + + + | Name | Relationship | Address | Phone | + + + + + | Jessica Shepard | ECON | [address] | | | | | [place] | | | | | [address] | | + + + + + | Bel Solis | ECON | Unknown | | + + + + + | José Shepard | ECON | [place] | | | | | [address] | | + + + + + | Jessica Shepard | ECON | Unknown | | + + + + + Care Team Providers + +------+ + | Care Log Driver Name | Role | Phone | + +------+ + PCP | Unavailable | + +------+ + Encounter Details +--------+ + + + + | Date | Type | Department | Care Team | Description | +--------+ + + + + | 12/08/ | Hospital | [facility] | | | | 1999 | Encounter | MED CTR XRAY [address] | | | | | | [address] | | | | | | [place] [address] | | | | | | [phone] | | | +--------+ + + + [...]
--- OUTSIDE RECORDS SUMMARY | ~2019-04-05 | XMS | Encounter Summary ---
Demographics + + + | Address | [address] | | | [place] [address] | + + + | Home Phone | | + + + | Preferred Language | Unknown | + + + | Marital Status | | + + + | Tenriism Affiliation | 1076 | + + + | Race | Unknown | + + + | Ethnic Group | Unknown | + + + Author + + + | Author | [facility] | | | and [place] | + + + | Organization | [facility] | | | and [place] | + + + | Address | Unknown | + + + | Phone | Unavailable | + + + Support + + + + + | Name | Relationship | Address | Phone | + + + + + | Jessica Shepard | ECON | [address] | | | | | [place] | | | | | [address] | | + + + + + | Bel Solis | ECON | Unknown | | + + + + + | José Shepard | ECON | [place] | | | | | [address] | | + + + + + | Jessica Shepard | ECON | Unknown | | + + + + + Care Team Providers + +------+ + | Care Service Advisor Name | Role | Phone | + +------+ + | Dian Lr SECTION WEAVER | PCP | | + +------+ + Encounter Details +--------+ + + + + | Date | Type | Department | Care Team | Description | +--------+ + + + + | 11/26/ | Hospital | [facility] | Toby Ortiz | 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 oMaria De Jesus Ontiveros RN - 11/26/2017 12:44 PM PDTVascular access team note- Following Infusion Nurses Society standards of care; a BARD 4fr single-lumen PICC inserted x 1 stick, using Ultrasound/ modified Seldinger technique. PICC advanced to 44cm and confirm ed by cxr. Ok to use. All lumens draw bright red blood briskly and flush easily with normal saline. SBAR report to ELLIOT Ramirez @ [facility] who continues care. Dressing will Need to be changed tomorrow d/t slight oozing at insertion site- ELLIOT Ramirez aware. Thank you for th is referral. Ignacia and 2 assist back into wheelchair. Electronically signed by: Maria De Jesus Contreras RN 11/26/2017 12:44 ike banegas, Maria De Jesus Camacho RN - 11/26/2017 10:57 AM PDTThere were no vitals filed for this visit. Reagan Shepard received into room 443, wheelchair transport/non weight bearing, accompanied by transport staff. States here for picc line placement. Reports no change in condition, pl an of care since last MD visit. Alert, oriented x 4, Unsure if medication list is accurate, cooperative. Ignacia sling and 2 assist to zafaryanci for procedure. Electronically signed by: Maria De [...]
--- OUTSIDE RECORDS SUMMARY | ~2019-04-05 | XMS | Encounter Summary ---
Demographics + + + | Address | [address] | | | [place] [address] | + + + | Home Phone [...] + | Organization | [facility] | | | and [place] | + + + | Address | Unknown | + + + | Phone | Unavailable | + + + Support + + + + + | Name | Relationship | Address | Phone | + + + + + | Jessica Shepard | ECON | [address] | | | | | [place] | | | | | [address] | | + + + + + | Bel Solis | ECON | Unknown | | + + + + + | José Shepard | ECON | [place] | | | | | [address] | | + + + + + | Jessica Shepard | ECON | Unknown | | + + + + + Care Team Providers + +------+ + | Care Compliance Engineer Products Name | Role | Phone | + +------+ + | Dian Lr NP | PCP | | + +------+ + Encounter Details +--------+ + + + + | Date | Type | Department | Care Team | Description | +--------+ + + + + | 05/14/ | Hospital | [facility] IP | Conversion | Pain | | 2017 | Encounter | CONVERSION [address] | Transaction, | | | | | [address] | Provider Unknown | | | | | [place] | [phone] | | | | | [address] | | | | | | [phone] | | | +--------+ + + + [...] Ornelas Conversion - 11/02/2018 6:55 AM PDT This is a non-reportable procedure | | without a radiologist report and isused for image storage only | + + documented in this encounter Visit Diagnoses + + | Diagnosis | + + | Pain Generalized pain | + + documented in this encounter"
--- OUTSIDE RECORDS SUMMARY | ~2019-04-05 | XMS | Encounter Summary ---
Demographics + + + | Address | [address] | | | [place] [address] | + + + | Home Phone [...] Organization | [facility] | | | and [place] | + + + | Address | Unknown | + + + | Phone | Unavailable | + + + Support + + + + + | Name | Relationship | Address | Phone | + + + + + | Jessica Shepard | ECON | [address] | | | | | [place] | | | | | [address] | | + + + + + | Bel Solis | ECON | Unknown | | + + + + + | José Shepard | ECON | [place] | | | | | [address] | | + + + + + | Jessica Shepard | ECON | Unknown | | + + + + + Care Team Providers + +------+ + | Care Eye Technician Name | Role | Phone | + +------+ + | Dian Lr NP | PCP | | + +------+ + Encounter Details +--------+ + + + + | Date | Type | Department | Care Team | Description | +--------+ + + + + | 11/24/ | Telephone | [facility] | Nelda Dickson E | | | 2017 | | MED CTR ACUTE | | | | | | PHYSICAL THERAPY | | | | | | [address] | | | | | | [place] [address] | | | | | | [phone] | | | +--------+ + + + [...]
--- OUTSIDE RECORDS SUMMARY | ~2019-04-05 | XMS | Encounter Summary ---
Demographics + + + | Address | [address] | | | [place] [address] | + + + | Home Phone [...] | Organization | [facility] | | | and [place] | + + + | Address | Unknown | + + + | Phone | Unavailable | + + + Support + + + + + | Name | Relationship | Address | Phone | + + + + + | Jessica Shepard | ECON | [address] | | | | | [place] | | | | | [address] | | + + + + + | Bel Solis | ECON | Unknown | | + + + + + | José Shepard | ECON | [place] | | | | | [address] | | + + + + + | Jessica Shepard | ECON | Unknown | | + + + + + Care Team Providers + +------+ + | Care Extrusion Die Corrector Name | Role | Phone | + +------+ + PCP | Unavailable | + +------+ + Encounter Details +--------+ + + + + | Date | Type | Department | Care Team | Description | +--------+ + + + + | 04/16/ | Hospital | [facility] | Dian Lr NP | | | 2011 | Encounter | MED CTR XRAY [address] | [address] | | | | | [address] | [place] [address] | | | | | [place] [address] | [phone] | | | | | [phone] | | | +--------+ + + + [...] At | + + + | [facility] Diagnostic Imaging Department | [facility] | | [address] [facility] | [facility] | | BONE DENSITY TESTING: | [...] Transcribed Date/Time: | | | 04/16/2011 14:14 Trimmer Helper: VIVEK <Electronically Signed | | | by David Guillermo MD> 04/16/11 1459 | | + + + + + | Procedure Note | + + | Eliel Ornelas Conversion - 04/27/2013 4:38 PM [facility] | | Diagnostic Imaging Department [address] [place] [address] | | BONE DENSITY TESTIN04/16/2011 CLINICAL HISTORY: [...] 13:48 | |Transcribed Date/Time: 04/16/2011 14:14 | |Trimmer Helper: | |<Electronically Signed by David Guillermo MD> 04/16/11 3966 | + + + +---------+ + + [...]
--- OUTSIDE RECORDS SUMMARY | ~2019-04-05 | XMS | Encounter Summary ---
Demographics + + + | Address | [address] | | | [place] [address] | + + + | Home Phone | | + + + | Preferred Language | Unknown | + + + | Marital Status | | + + + | Baptist Affiliation | 1076 | + + + | Race | Unknown | + + + | Ethnic Group | Unknown | + + + Author + + + | Author | [facility] | | | and [place] | + + + | Organization | [facility] | | | and [place] | + + + | Address | Unknown | + + + | Phone | Unavailable | + + + Support + + + + + | Name | Relationship | Address | Phone | + + + + + | Jessica Amezquita | ECON | [address] | | | | | [place] | | | | | [address] | | + + + + + | Bel Solis | ECON | Unknown | | + + + + + | José Amezquita | ECON | [place] | | | | | [address] | | + + + + + | Jessica Amezquita | ECON | Unknown | | + + + + + Care Team Providers + +------+ + | Care Supervisor Taping Name | Role | Phone | + +------+ + PCP | Unavailable | + +------+ + Encounter Details +--------+ + + + + | Date | Type | Department | Care Team | Description | +--------+ + + + + | 04/21/ | Hospital | [facility] | Christina Da Silva | | | 2012 | Encounter | MED CTR EMERGENCY | MD [place]shine [address] | | | | | [place] [address] | [facility] | | | | | [place], [place] | [place] [address] | | | | | [address] | [phone] | | | | | [phone] | | | | | | | Cody Goodwin | | | | | | MD Evelia [address] | | | | | | [place], [place] | | | | | | [address] | | | | | | [phone] | | | | | | | [...] At | + + + | [facility] Diagnostic Imaging | [facility] | | Department [address] [facility] | [facility] | | [ rep [address]] [ rep [facility] | | [facility]] Signed | - IMAGING | | | | | Patient Name: REAGAN AMEZQUITA Physician: | | | BILL. : 1945 Age: 67 Sex: M Unit #: [id number] | | | Exam Date: 04/21/12 Location: ER | | | Report #: [id number] Page: | | | %(RAD)RES..mtdd.print.filter("pg") of %(RAD) | | | RES..mtdd.print.filter("tpg") | | | | | | Accession Number: [id number] | | | ABDOMEN ONE VIEW 04/22/2012 [...] Transcribed Date/Time: | | | 04/22/2012 18:46 Dehorner: | | | <<Signature on File>> | | | Rico | | | MD Jack04/23/12 0933 <Electronically signed by Rico Santiago MD> | | | Rico Santiago MD 04/22/12 1424 Dehorner: Abhishek | | | Spyvdelacszwj72/02/13 1846 Cody Goodwin MD | | | | | + + + + + + + + | Performing | Address | City/State/Zipcode | Phone Number | | Organization | | | | + + + + + | [facility] | [address] | [place] | [phone] | | [facility] | | [address] | | | - IMAGING | | | | + + + + + CT Abdomen Pelvis w Contrast (04/22/2012 11:43 AM PST) + + | Specimen | + + | | + + + + + | Narrative | Performed At | + + + | [facility] Diagnostic Imaging | [facility] | | Department [address] [facility] [place] | [facility] | | [ rep ct [address]] [ rep ct [facility] | | st zip] Signed | - IMAGING | | | | | Patient Name: REAGAN AMEZQUITA Jeovany Physician: | | | BILL.[birth year] : 1945 Age: 67 Sex: M Unit #: [id number] | | | Exam Date: 04/21/12 Location: ER | | | Report #: [id number] Page: | | | %(RAD)RES..mtdd.print.filter("pg") of %(RAD) | | | RES..mtdd.print.filter("tpg") | | | | | | Accession Number: [id number] | | | CT SCAN OF THE [...] | | PRELIMINARY REPORT WAS SENT BY [facility] AT 10:02 P.M. ON | | | 04/21/12. Dictated Date/Time: 04/22/2012 11:43 | | | Transcribed Date/Time: 04/22/2012 15:29 Dehorner: | | | <<Signature on File>> | | | Rico | | | MD Jack04/23/12 0933 <Electronically signed by Rico Santiago MD> | | | Rico Santiago MD 04/22/12 1143 Dehorner: Abhishek | | | Ucqvvsdbfovhc16/02/13 1529 Cody Goodwin MD | | | | | + + + + + + + + | Performing | Address | City/State/Zipcode | Phone Number | | Organization | | | | + + + + + | [facility] | [address] | [place] | [phone] | | [facility] | | [address] | | | - IMAGING | | [...] | [facility] | [address] | [place] | [phone] | | [facility] | | [address] | | | - LABORATORY | | | | + + + + + | [facility] | [address] | [place] | | | [facility] | | [address] | | | - LABORATORY | | [...] + | [facility] | [address] | [place] | [phone] | | [facility] | | [address] | | | - LABORATORY | | | | + + + + + | [facility] | [address] | [place] | | | [facility] | | [address] | | | - LABORATORY | | | | + + + + + documented in this encounter Visit Diagnoses Not on filedocumented in this encounter
--- OUTSIDE RECORDS SUMMARY | ~2019-04-05 | XMS | Encounter Summary ---
Demographics + + + | Address | [address] | | | [place] [address] | + + + | Home Phone [...] Organization | [facility] | | | and [place] | + + + | Address | Unknown | + + + | Phone | Unavailable | + + + Support + + + + + | Name | Relationship | Address | Phone | + + + + + | Jessica Amezquita | ECON | [address] | | | | | [place] | | | | | [address] | | + + + + + | Bel Solis | ECON | Unknown | | + + + + + | José Amezquita | ECON | [place] | | | | | [address] | | + + + + + | Jessica Amezquita | ECON | Unknown | | + + + + + Care Team Providers + +------+ + | Care Human Resources Supervisor Name | Role | Phone | + +------+ + PCP | Unavailable | + +------+ + Encounter Details +--------+ + + + + | Date | Type | Department | Care Team | Description | +--------+ + + + + | 04/21/ | Hospital | [facility] | Christina Da Silva | | | 2012 | Encounter | [facility] | MD [place] [address] | | | | | [place] [address] | [facility] | | | | | [place], [place] | [place] [address] | | | | | [address] | [phone] | | | | | [phone] | | | | | | | Cody Goodwin | | | | | | MD Evelia [address] | | | | | | [place], [place] | | | | | | [address] | | | | | | [phone] | | | | | | | [...] Performed At | + + + | [facility] | [place] | | Department [address] [facility] | [facility] | | [ rep [address]] [ rep [facility] | | [facility]] Signed | - IMAGING | | | | | Patient Name: REAGAN AMEZQUITA Physician: | | | BILL. : 1945 Age: 67 Sex: M Unit #: [id number] | | | Exam Date: 04/21/12 Location: ER | | | Report #: [id number] Page: | | | %(RAD)RES..mtdd.print.filter("pg") of %(RAD) | | | RES..mtdd.print.filter("tpg") | | | | | | Accession Number: [id number] | | | ABDOMEN ONE VIEW 04/22/2012 [...] Transcribed Date/Time: | | | 04/22/2012 18:46 Fat Pressroom Worker: | | | <<Signature on File>> | | | Rico | | | MD Jack04/23/12 0933 <Electronically signed by Rico Santiago MD> | | | Rico Santiago MD 04/22/12 1424 Fat Pressroom Worker: Abhishek | | | Vzbkmnihdbgxa33/02/13 1846 Cody Goodwin MD | | | | | + + + + + + + + | Performing | Address | City/State/Zipcode | Phone Number | | Organization | | | | + + + + + | [facility] | [address] | [place] | [phone] | | [facility] | | [address] | | | - IMAGING | | | | + + + + + CT Abdomen Pelvis w Contrast (04/22/2012 11:43 AM PST) + + | Specimen | + + | | + + + + + | Narrative | Performed At | + + + | [facility] | [place] | | Department [address] [facility] [place] | [facility] | | [ rep [address]] [ rep ct [facility] | | st zip] Signed | - IMAGING | | | | | Patient Name: REAGAN AMEZQUITA Jeovany Physician: | | | BILL.[birth year] : 1945 Age: 67 Sex: M Unit #: [id number] | | | Exam Date: 04/21/12 Location: ER | | | Report #: [id number] Page: | | | %(RAD)RES..mtdd.print.filter("pg") of %(RAD) | | | RES..mtdd.print.filter("tpg") | | | | | | Accession Number: [id number] | | | CT SCAN OF THE [...] | | PRELIMINARY REPORT WAS SENT BY [employer] AT 10:02 P.M. ON | | | 04/21/12. Dictated Date/Time: 04/22/2012 11:43 | | | Transcribed Date/Time: 04/22/2012 15:29 Fat Pressroom Worker: | | | <<Signature on File>> | | | Rico | | | MD Jack04/23/12 0933 <Electronically signed by Rico Santiago MD> | | | Rico Santiago MD 04/22/12 1143 Fat Pressroom Worker: Abhishek | | | Yazafbvhadfuc33/02/13 1529 Cody Goodwin MD | | | | | + + + + + + + + | Performing | Address | City/State/Zipcode | Phone Number | | Organization | | | | + + + + + | [facility] | [address] | [place] | [phone] | | [facility] | | [address] | | | - IMAGING | | [...] + | [facility] | [address] | [place] | [phone] | | [facility] | | [address] | | | - LABORATORY | | | | + + + + + | [facility] | [address] | [place] | | | [facility] | | [address] | | | - LABORATORY | | [...] + | [facility] | [address] | [place] | [phone] | | [facility] | | [address] | | | - LABORATORY | | | | + + + + + | [facility] | [address] | [place] | | | [facility] | | [address] | | | - LABORATORY | | | | + + + + + documented in this encounter Visit Diagnoses Not on filedocumented in this encounter
--- OUTSIDE RECORDS SUMMARY | ~2019-04-05 | XMS | Clinical Summary ---
Demographics + + + | Address | [address] | | | [place] [address] | + + + | Home Phone [...] | Organization | [facility] | | | and [place] | + + + | Address | Unknown | + + + | Phone | Unavailable | + + + Support + + + + + | Name | Relationship | Address | Phone | + + + + + | Jessica Shepard | ECON | [address] | | | | | [place] | | | | | [address] | | + + + + + | Bel Solis | ECON | Unknown | | + + + + + | José Shepard | ECON | [place] | | | | | [address] | | + + + + + | Jessica Shepard | ECON | Unknown | | + + + + + Care Team Providers + +------+ + | Care Nutrition Technician Name | Role | Phone | + +------+ + | iDan Lr VIDEO ARCADE MANAGER | PCP | | + +------+ + [...] + + + | Overview: Problem List Bottom Polisher Utility | + + + + + [...] +--------+ +---------+--------+ | MEDICARE | MEDICA | [id number] | | [phone] | | Medica | | | RE | | 012-Pr | 5 | | re | | | PART A | | esent | | | | | | AND B | | | | | | + +--------+ +--------+ +---------+--------+ | VETERANS ADMIN | VETERA | [id number] | | | | Indemn | | | NS | | 018-Pr | | | ity | | | ADMIN | | esent | | | | | | [place] | | | | | | | | [place] | | | | | | + +--------+ +--------+ +---------+--------+ | MEDICARE | MEDICA | [id number] | | [phone] | | Medica | [...] Person | Self [birth year] | [phone] | | | al/Fam | | 1945 | [id number] | [place] | | | carlos | | | 2 (Home) | [address] | + +--------+ +--------+ + + | Reagan Shepard | Person | Self [birth year] | [address] | | | al/Fam | | 1945 | [phone] | [place], [place] | | | carlos | | | 2 (Home) | [address] | + +--------+ +--------+ + + Advance Directives + + + + + | Type | Date Recorded | Patient | Explanation | | | | Quick Sketch Artist | | + + + + + | Power of | | | | | Activities Attendant | | | | + + + [...]
--- OUTSIDE RECORDS SUMMARY | ~2019-04-05 | XMS | Encounter Summary ---
Demographics + + + | Address | [address] | | | [place] [address] | + + + | Home Phone [...] Organization | [facility] | | | and [place] | + + + | Address | Unknown | + + + | Phone | Unavailable | + + + Support + + + + + | Name | Relationship | Address | Phone | + + + + + | Jessica Shepard | ECON | [address] | | | | | [place] | | | | | [address] | | + + + + + | Bel Solis | ECON | Unknown | | + + + + + | José Shepard | ECON | [place] | | | | | [address] | | + + + + + | Jessica Shepard | ECON | Unknown | | + + + + + Care Team Providers + +------+ + | Care Remote Inpatient Coder Name | Role | Phone | + [...] Metatarsal | | | | [address] | [place] | | | | | [place] | [address] | | | | | [address] | [phone] | | | | | [phone] | | | +--------+---------+ + + + [...] other anesthesia was used during the case. [facility] t lower extremity was then scrubbed, [...] -PT/OT ordered Code Status: Full Code Disposition: [facility] Discharge Condition: Stable, very deconditioned and weak at baseline Pleasant, no distress RRR, no m/r/g CTA bilaterally Soft, obese, NT Ext WWP, right foot ulcer with deep wound, slight purulent drainage Contact information for after-discharge care Placement Destination [facility] . Specialty: Detention Facility Contact information: [address] [place] [address] Discharge Medications New Medications Details acetaminophen [...] signed by: Justin Reyna MD, 11/25/2017 13:01 [facility] documented in this encounter Medications at Time [...] be different f rom the original. [facility] PMG Hospitalist Progress Note Reagan Shepard [...] pantoprazole Mechanical fall -PT/OT ordered Disposition : [facility] as soon as 11/25 Prophylaxis : [...] as outlined above. Justin Reyna 11/24/2017 18:16 [facility] Sang Duff MD - 11/24/2017 1:59 PM PDTWe are evaluating the patient for further medical rehabilitatio n services. He does not qualify per [facility] guidelines for full inpatient rehab . I recommend he be transferred to SNF for further skilled therapies once he is cleared acute ly. Justin Rodriguez MD - 11/23/2017 2:24 PM PDT [facility] PMG Hospitalist Progress Note Reagan Shepard [...] as outlined above. Justin Reyna 11/23/2017 14:24 [facility] Simone Roth DPM - 11/23/2017 1:58 PM PDT Foot & Ankle Surgery Progress Note Simone Shepard Age/Gender 72 y.o. male Location [facility] Attending Karuna-Hwa Lori, MD Hosp [...] Value Units Date/Time Culture, Wound, Smear, w/Anaerobe [[id number]] Collected: 11/21/171207 Order Status: Sent Lab Status: In process Updated: 11/21/171249 Specimen: Tissue from Toe, Fifth/Small, Right Narrative: The following orders were created for panel order Culture, Wound, Smear, w/Anaerobe. Procedure Abnormality Status --------- ------ Culture, Wound, Smear[[id number]] In process Culture, Anaerobic[[id number]] In process Please view results for these tests on the individual orders. Culture, Wound, Smear [[id number]] Collected: 11/21/171207 Order Status: Sent Lab Status: In process Updated: 11/21/171249 Specimen: Tissue from Toe, Fifth/Small, Right Culture, Anaerobic [[id number]] Collected: 11/21/171207 Order Status: Sent Lab Status: [...] Simone Aceves DPM 13:58; 11/23/2017 Irasema Dominguez, Deputy Commissioner - 11/23/2017 9:43 AM PDT PHARMACY SERVICES: [...] strength, and directions X Pharmacy list names: [facility] information X Care Everywhere X [...] Prior to Admission Sig: Patient taking differently [employer] as: Hydrocodone-acetaminophen 10-325 mg Take one tablet by mouth four times daily as needed fo r pain Patient taking 1 tablet three times daily as a scheduled dose Best possible [employer] medication list after pharmacy review: PT REPORTED [...] performed and electronically signed by Blanquita Bertrand, Experimental Welder 11/22/2017 8:38 Electronically signed by: Irasema Moyer, Deputy Commissioner 11/23/2017 9:43 Justin Rodriguez MD - 11/22/2017 5:22 PM PDT [facility] PMG Hospitalist Progress Note Reagan Shepard [...] as outlined above. Justin Reyna 11/22/2017 17:40 [facility] Danielle Claire, Classified Copy Control Clerk - 11/22/2017 2:13 PM PDTFormatting of this [...] cerebral hemisphere; Diabetes mellitus (HCC); Stroke (cerebrum) ([facility]); an d TBI (traumatic brain injury) ([facility]). No risk factors for MDR organisms. [...] Value Units Date/Time Culture, Wound, Smear, w/Anaerobe [[id number]] Collected: 11/21/171207 Order Status: Sent Lab Status: In process Updated: 11/21/17 1250 Specimen: Tissue from Toe, Fifth/Small, Right Narrative: The following orders were created for panel order Culture, Wound, Smear, w/Anaerobe. Procedure Abnormality Status --------- ------ Culture, Wound, Smear[[id number]] Preliminary result Culture, Anaerobic[[id number]] In process Please view results for these tests on the individual orders. Culture, Wound, Smear [[id number]] Collected: 11/21/171207 Order Status: Completed Lab Status: Preliminary result Updated: 11/22/17 1021 Specimen: Tissue from Toe, Fifth/Small, Right Culture 2+ Lactose Fermenting Gram Negative Bacilli Comment: Identification and susceptibility to follow. Gram Stain Result 2+ White Blood Cells 1+ Epithelial cells 2+ Gram negative rods Culture, Anaerobic [[id number]] Collected: 11/21/17 120 Order Status: Sent Lab Status: In process Updated: 11/21/17 1250 Specimen: Tissue from Toe, Fifth/Small, Right Respiratory Virus Panel, NAAT [[id number]] Collected: 11/20/17 1257 Order Status: Completed Lab [...] pneumoniae DNA Not Detected Narrative: Performed at: [address] [place] [id number] Cuff Turner Machine Operator: Jurgen Costa MD, Phone: [phone] Culture, Wound, Smear [[id number]] (Susceptibility) Collected: 11/20/17 0825 Order Status: Completed [...] Sulfamethoxazole <=20 ug/mL Sensitive Culture, Wound, Smear [[id number]] (Susceptibility) Collected: 11/19/17 2031 Order Status: Completed [...] no longer reported. Culture, Respiratory, Lower, Smear [[id number]] Order Status: Sent Lab Status: No result Specimen: Body Fluid from Sputum, Expectorated Culture, Wound, Smear [[id number]] Order Status: Canceled Lab Status: No result Specimen: Tissue from Leg, Left Culture, Blood [[id number]] (Normal) Collected: 11/19/17 1537 Order Status: Completed Lab Status: Preliminary result Updated: 11/20/17 0351 Specimen: Blood from Peripheral Blood Culture No growth: Monitored continually by instrument for 5 days Culture, Blood [[id number]] (Normal) Collected: 11/19/17 1506 Order Status: Completed Lab Status: Preliminary result Updated: 11/20/17 0321 Specimen: Blood from Peripheral Blood Culture No growth: Monitored continually by instrument for 5 days Culture, Urine [[id number]] Collected: 11/19/17 1416 Order Status: Completed Lab [...] Monitoring Protocol Electronically signed by: Danielle Guillermo, Classified Copy Control Clerk 11/22/2017 14:13 Associated attestation - Luther Hampton [...] Simone Shepard Age/Gender 72 y.[address] male Location [facility] Attending Mil Sandoval MD Hosp [...] Value Units Date/Time Culture, Wound, Smear, w/Anaerobe [[id number]] Collected: 11/21/171207 Order Status: Sent Lab Status: In process Updated: 11/21/17 125 Specimen: Tissue from Toe, Fifth/Small, Right Narrative: The following orders were created for panel order Culture, Wound, Smear, w/Anaerobe. Procedure Abnormality Status --------- ------ Culture, Wound, Smear[[id number]] In process Culture, Anaerobic[[id number]] In process Please view results for these tests on the individual orders. Culture, Wound, Smear [[id number]] Collected: 11/21/171207 Order Status: Sent Lab Status: In process Updated: 11/21/17 125 Specimen: Tissue from Toe, Fifth/Small, Right Culture, Anaerobic [[id number]] Collected: 11/21/171207 Order Status: Sent Lab Status: [...] cerebral hemisphere; Diabetes mellitus (HCC); Stroke (cerebrum) ([facility]); an d TBI (traumatic brain injury) ([facility]). . No risk factors for MDR [...] Value Units Date/Time Culture, Wound, Smear, w/Anaerobe [[id number]] Collected: 11/21/17 1208 Order Status: Sent Lab Status: In process Updated: 11/21/17 1250 Specimen: Tissue from Toe, Fifth/Small, Right Narrative: The following orders were created for panel order Culture, Wound, Smear, w/Anaerobe. Procedure Abnormality Status --------- ------ Culture, Wound, Smear[[id number]] In process Culture, Anaerobic[[id number]] In process Please view results for these tests on the individual orders. Culture, Wound, Smear [[id number]] Collected: 11/21/17 1208 Order Status: Sent Lab Status: In process Updated: 11/21/17 1250 Specimen: Tissue from Toe, Fifth/Small, Right Culture, Anaerobic [[id number]] Collected: 11/21/17 1208 Order Status: Sent Lab Status: In process Updated: 11/21/17 1250 Specimen: Tissue from Toe, Fifth/Small, Right Respiratory Virus Panel, NAAT [[id number]] Collected: 11/20/17 1257 Order Status: Sent Lab Status: In process Updated: 11/20/17 1302 Specimen: Tissue from Nasopharynx Culture, Wound, Smear [[id number]] Collected: 11/20/17 0825 Order Status: Completed Lab Status: Preliminary result Updated: 11/21/17 0739 Specimen: Tissue from Foot, Right Culture 1+ Gram Negative Jayesh, NOT Pseudomonas Comment: Identification and susceptibility to follow. 1+ Gram Positive Cocci Comment: Isolating for additional information. Gram Stain Result 1+ White Blood Cells No organisms seen Culture, Wound, Smear [[id number]] (Susceptibility) Collected: 11/19/172030 Order Status: Completed Lab [...] <=20 ug/mL Sensitive Culture, Respiratory, Lower, Smear [[id number]] Order Status: Sent Lab Status: No result Specimen: Body Fluid from Sputum, Expectorated Culture, Wound, Smear [[id number]] Order Status: Canceled Lab Status: No result Specimen: Tissue from Leg, Left Culture, Blood [[id number]] (Normal) Collected: 11/19/17 1537 Order Status: Completed Lab Status: Preliminary result Updated: 11/20/17 0351 Specimen: Blood from Peripheral Blood Culture No growth: Monitored continually by instrument for 5 days Culture, Blood [[id number]] (Normal) Collected: 11/19/17 1506 Order Status: Completed Lab Status: Preliminary result Updated: 11/20/17 0321 Specimen: Blood from Peripheral Blood Culture No growth: Monitored continually by instrument for 5 days Culture, Urine [[id number]] Collected: 11/19/17 1416 Order Status: Completed Lab [...] Hoff MD - 11/21/2017 11:05 AM PDT [facility] HOSPITALIST PROGRESS NOTE Patient: Reagan Shepard : 1945: Age: 72 y.o. MedRec: [id number] Admission date: 11/19/2017 Hospital day # : [...] E' Septal Velocity 4.79 cm/s MV Deceleration [place] 336.24 cm/s2 MV Deceleration Time 332.96 msec [...] Value Units Date/Time Respiratory Virus Panel, NAAT [[id number]] Collected: 11/20/17 1257 Order Status: Sent Lab Status: In process Updated: 11/20/17 1302 Specimen: Tissue from Nasopharynx Culture, Wound, Smear [[id number]] Collected: 11/20/17 0825 Order Status: Completed Lab Status: Preliminary result Updated: 11/21/17 0739 Specimen: Tissue from Foot, Right Culture 1+ Gram Negative Jayesh, NOT Pseudomonas Comment: Identification and susceptibility to follow. 1+ Gram Positive Cocci Comment: Isolating for additional information. Gram Stain Result 1+ White Blood Cells No organisms seen Culture, Wound, Smear [[id number]] (Susceptibility) Collected: 11/19/17 2031 Order Status: Completed [...] + Sulfamethoxazole <=20 ug/mL Sensitive Culture, Blood [[id number]] (Normal) Collected: 11/19/17 1537 Order Status: Completed Lab Status: Preliminary result Updated: 11/20/17 0351 Specimen: Blood from Peripheral Blood Culture No growth: Monitored continually by instrument for 5 days Culture, Blood [[id number]] (Normal) Collected: 11/19/17 1506 Order Status: Completed Lab Status: Preliminary result Updated: 11/20/17 0321 Specimen: Blood from Peripheral Blood Culture No growth: Monitored continually by instrument for 5 days Culture, Urine [[id number]] Collected: 11/19/17 1416 Order Status: Completed Lab [...] Other Pharmacy Consult Nasim Jimenez 11/21/2017 11:05 [facility] Nasim Hoff MD - 11/20/2017 10:04 AM PDT [facility] [place] HOSPITALIST PROGRESS NOTE Patient: Reagan Shepard : 1945: Age: 72 y.o. MedRec: [id number] Admission date: 11/19/2017 Hospital day # : [...] PH UA 5.0 5.0 - 8.0 Specific [place] 1.017 1.001 - 1.030 PROTEIN UA 30 [...] Component Value Units Date/Time Culture, Wound, Smear [[id number]] Collected: 11/20/17 0825 Order Status: Sent Lab Status: In process Updated: 11/20/17 0829 Specimen: Tissue from Foot, Right Culture, Wound, Smear [[id number]] Collected: 11/19/172030 Order Status: Completed Lab Status: Preliminary result Updated: 11/20/17 09 Specimen: Tissue from Leg, Lower, Right Culture 2+ Gram Negative Jayesh, NOT Pseudomonas Comment: Identification and susceptibility to follow. 1+ Gram Positive Cocci Comment: Isolating for additional information. Gram Stain Result No white blood cells (PMNs) seen 1+ Gram negative rods Culture, Blood [[id number]] (Normal) Collected: 11/19/17 1537 Order Status: Completed Lab Status: Preliminary result Updated: 11/20/17 0351 Specimen: Blood from Peripheral Blood Culture No growth: Monitored continually by instrument for 5 days Culture, Blood [[id number]] (Normal) Collected: 11/19/17 1506 Order Status: Completed Lab Status: Preliminary result Updated: 11/20/17 0321 Specimen: Blood from Peripheral Blood Culture No growth: Monitored continually by instrument for 5 days Culture, Urine [[id number]] (Normal) Collected: 11/19/17 1416 Order Status: Completed [...] Other Pharmacy Consult Nasim Jimenez 11/20/2017 10:05 [facility] hadra Walsh Phar mD - 11/20/2017 9:10 [...] cerebral hemisphere; Diabetes mellitus (HCC); Stroke (cerebrum) ([facility]); an d TBI (traumatic brain injury) ([facility]). . No risk factors for MDR [...] Component Value Units Date/Time Culture, Wound, Smear [[id number]] Collected: 11/20/17 0825 Order Status: Sent Lab Status: In process Updated: 11/20/17 08 Specimen: Tissue from Foot, Right Culture, Wound, Smear [[id number]] Collected: 11/19/172030 Order Status: Completed Lab Status: Preliminary result Updated: 11/20/17 09 Specimen: Tissue from Leg, Lower, Right Culture 2+ Gram Negative Jayesh, NOT Pseudomonas Comment: Identification and susceptibility to follow. 1+ Gram Positive Cocci Comment: Isolating for additional information. Gram Stain Result No white blood cells (PMNs) seen 1+ Gram negative rods Culture, Respiratory, Lower, Smear [[id number]] Order Status: Sent Lab Status: No result Specimen: Body Fluid from Sputum, Expectorated Culture, Wound, Smear [[id number]] Order Status: Canceled Lab Status: No result Specimen: Tissue from Leg, Left Culture, Blood [[id number]] (Normal) Collected: 11/19/17 1537 Order Status: Completed Lab Status: Preliminary result Updated: 11/20/17 0351 Specimen: Blood from Peripheral Blood Culture No growth: Monitored continually by instrument for 5 days Culture, Blood [[id number]] (Normal) Collected: 11/19/17 1506 Order Status: Completed Lab Status: Preliminary result Updated: 11/20/17 0321 Specimen: Blood from Peripheral Blood Culture No growth: Monitored continually by instrument for 5 days Culture, Urine [[id number]] (Normal) Collected: 11/19/17 1416 Order Status: Completed [...] cerebral hemisphere; Diabetes mellitus (HCC); Stroke (cerebrum) ([facility]); an d TBI (traumatic brain injury) ([facility]). . No risk factors for MDR [...] Value Units Date/Time Culture, Respiratory, Lower, Smear [[id number]] Order Status: Sent Lab Status: No result Specimen: Body Fluid from Sputum, Expectorated Culture, Wound, Smear [[id number]] Order Status: Sent Lab Status: No result Specimen: Tissue from Leg, Left Culture, Blood [[id number]] Collected: 11/19/17 1537 Order Status: Sent Lab Status: In process Updated: 11/19/17 1543 Specimen: Blood from Peripheral Blood Culture, Blood [[id number]] Collected: 11/19/17 1506 Order Status: Sent Lab Status: In process Updated: 11/19/17 1511 Specimen: Blood from Peripheral Blood Culture, Urine [[id number]] Collected: 11/19/17 1416 Order Status: Sent Lab [...] the | | | | PDT | ([facility]) | results section. | + +--------+ [...] K?MRN: | | | | | | [id number] | | | [id number] | | | his | | | [...] | | | ecarep | | | rachael.co | | | m/brett | | | ent/06 | | | [id number] | | | -9b07- | | | [...] | | | St. | | | [place] | | | y H. | | [...] | | | St. | | | [place] | | | y | | | [...] [address] | [place] | [phone] | | [facility] | | [address] | | | - LABORATORY | | [...] [address] | [place] | [phone] | | [facility] | | [address] | | | - LABORATORY | | [...] [address] | [place] | [phone] | | [facility] | | [address] | | | - LABORATORY | | [...] | | | | | mg/dL | [facility] | | | | | | MEDICAL | | | | | | CENTER - | | | | | | LABORATORY | | + + + + + + | eGFR if not | >60Comment: GLOMERULAR | >=60 | [facility] | | | | FILTRATION | mL/min/1.73m2 | [facility] | | | [place] | RATE,ESTIMATED | | MEDICAL | | | | mL/min/1.41r8Qmeh than | | CENTER - | | [...] | | | | | mg/dL | [facility] | | | | | [...] [address] | [place] | [phone] | | [facility] | | [address] | | | - LABORATORY | | [...] (H) | 4.0 - 11.0 K/uL | [facility] | | | | | | [facility] | | | | | | MEDICAL | | | | | | CENTER - | | | | | | LABORATORY | | + + + + + + | RBC | 4.60 | 4.30 - 5.70 | [facility] | | | | | M/uL | [facility] | | | | | [...] + | [facility] | [address] | [place] | [phone] | | [facility] | | [address] | | | - LABORATORY | | [...] ST. | [address] | [place], [place] | [phone] | | [facility] | | [address] | | | - LABORATORY | | [...] [address] | [place] | [phone] | | [facility] | | [address] | | | - LABORATORY | | [...] + | [address] | [address] | [place] | [phone] | | [facility] | | [address] | | | - LABORATORY | | [...] [address] | [place] | [phone] | | [facility] | | [address] | | | - LABORATORY | | [...] | mL/min/1.73m2 | [facility] | | | [place] | RATE,ESTIMATED | | MEDICAL | | | | mL/min/1.64m4Vrpn than | | CENTER - | | [...] [address] | [place] | [phone] | | [facility] | | [address] | | | - LABORATORY | | [...] | | Eosinophils | | | [facility] | | [...] + | [address] | [address] | [place] | [phone] | | [facility] | | [address] | | | - LABORATORY | | [...] [address] | [place] | [phone] | | [facility] | | [address] | | | - LABORATORY | | [...] [address] | [place] | [phone] | | [facility] | | [address] | | | - LABORATORY | | [...] + | [facility] | [address] | [place] | [phone] | | [facility] | | [address] | | | - LABORATORY | | [...] + | [facility] | [address] | [place] | [phone] | | [facility] | | [address] | | | - LABORATORY | | [...] ST. | [address] | [place], [place] | [phone] | | [facility] | | [address] | | | - LABORATORY | | [...] | 0.87 | 0.60 - 1.30 | [facility] | | | | | mg/dL | [facility] | | | | | | MEDICAL | | | | | | CENTER - | | | | | | LABORATORY | | + + + + + + | eGFR if not | >60Comment: GLOMERULAR | >=60 | [facility] | | | | FILTRATION | mL/min/1.73m2 | [facility] | | | [place] | RATE,ESTIMATED | | MEDICAL | | | | mL/min/1.79b2Iswx than | | CENTER - | | [...] [address] | [place] | [phone] | | [facility] | | [address] | | | - LABORATORY | | [...] + | [facility] | [address] | [place] | [phone] | | [facility] | | [address] | | | - LABORATORY | | [...] [address] | [place] | [phone] | | [facility] | | [address] | | | - LABORATORY | | [...] [address] | [place] | [phone] | | [facility] | | [address] | | | - LABORATORY | | [...] + | [facility] | [address] | [place] | [phone] | | [facility] | | [address] | | | - LABORATORY | | [...] + | [address] | [address] | [place], [place] | [phone] | | [facility] | | [address] | | | - LABORATORY | | [...] [address] | [place] | [phone] | | [facility] | | [address] | | | - LABORATORY | | [...] ST. | [address] | [place] | [phone] | | [facility] | | [address] | | | - LABORATORY | | [...] [address] | [place] | [phone] | | [facility] | | [address] | | | - LABORATORY | | [...] | 1.04 | 0.60 - 1.30 | [facility] | | | | | mg/dL | [facility] | | | | | | MEDICAL | | | | | | CENTER - | | | | | | LABORATORY | | + + + + + + | eGFR if not | >60Comment: GLOMERULAR | >=60 | [facility] | | | | FILTRATION | mL/min/1.73m2 | [facility] | | | [place] | RATE,ESTIMATED | | MEDICAL | | | | mL/min/1.80t3Qzyg than | | CENTER - | | [...] + | [facility] | [address] | [place] | [phone] | | [facility] | | [address] | | | - LABORATORY | | [...] ST. | [address] | [place], [place] | [phone] | | [facility] | | [address] | | | - LABORATORY | | [...] [address] | [place] | [phone] | | [facility] | | [address] | | | - LABORATORY | | [...] [address] | [place] | [phone] | | [facility] | | [address] | | | - LABORATORY | | [...] [address] | [place] | [phone] | | [facility] | | [address] | | | - LABORATORY | | [...] [address] | [place] | [phone] | | [facility] | | [address] | | | - LABORATORY | | [...] + | [facility] | [address] | [place] | [phone] | | [facility] | | [address] | | | - LABORATORY | | [...] + | [facility] | [address] | [place] | [phone] | | [facility] | | [address] | | | - LABORATORY | | [...] + | [address] | [address] | [place] | [phone] | | [facility] | | [address] | | | - LABORATORY | | [...] [address] | [place] | [phone] | | [facility] | | [address] | | | - LABORATORY | | [...] ST. | [address] | [place] | [phone] | | [facility] | | [address] | | | - LABORATORY | | [...] [address] | [place] | [phone] | | [facility] | | [address] | | | - LABORATORY | | [...] + | [facility] | [address] | [place] | [phone] | | [facility] | | [address] | | | - LABORATORY | | [...] ST. | [address] | [place] | [phone] | | [facility] | | [address] | | | - LABORATORY | | [...] | | FILTRATION | mL/min/1.73m2 | [facility] | | | [place] | RATE,ESTIMATED | | MEDICAL | | | | mL/min/1.48i1Nppp than | | CENTER - | | [...] | | | | | mg/dL | [facility] | | | | | [...] [address] | [place] | [phone] | | [facility] | | [address] | | | - LABORATORY | | [...] [address] | [place] | [phone] | | [facility] | | [address] | | | - LABORATORY | | [...] + | [facility] | [address] | [place] | [phone] | | [facility] | | [address] | | | - LABORATORY | | [...] | | chronic inflammation suggestive of osteomyelitis. JVR:[facility]:C2NR | | | MICROSCOPIC EXAMINATION: Histologic sections [...] decalcified in decal | | | STAT).. am:AMB:[facility] PERFORMING LABORATORY: The technical | | | component was performed by [facility], [address] [place] [address] | | | [facility] [address] (Outdoor Recreation Specialist: Khadra Gill MD; CLIA# | | | [id number]). Professional interpretation was performed by [facility] | | | Localist, [address] | | | [facility] [address] [place] [address] (Outdoor Recreation Specialist: Ambrosio | | | [place]). Diagnostician: Ambrosio Hall MD | | | Pathologist Electronically Signed 11/23/2017 | | + + + + +---------+ + + | Performing | Address | City/State/Zipcode | Phone Number | | Organization | | | | + +---------+ + + | [place] [facility] | | | | | [employer] | | | | + +---------+ + [...] [address] | [place] | [phone] | | [facility] | | [address] | | | - LABORATORY | | [...] | | | | | | [place] | | | | | + +---------+ [...] [address] | [place] | [phone] | | [facility] | | [address] | | | - LABORATORY | | [...] + | Performed at: 01 - [facility] [place] [address], | REFERENCE LAB | | [place], [place] [address] Cuff Turner Machine Operator: Jurgen Costa MD, Phone: | [facility] | | [phone] | | + + + + + + + + | Performing | Address | City/State/Zipcode | Phone Number | | Organization | | | | + + + + + | REFERENCE LAB | [address] | [place] [address] | [phone] | | [facility] | [address] [...] [address] | [place] | [phone] | | [facility] | | [address] | | | - LABORATORY | | [...] [address] | [place] | [phone] | | [facility] | | [address] | | | - LABORATORY | | [...] + | [facility] | [address] | [place] | [phone] | | [facility] | | [address] | | | - LABORATORY | | [...] | + + + + + | [facility] | [address] | [place] | [phone] | | [facility] | | [address] | | | - LABORATORY | | [...] + | [facility] | [address] | [place] | [phone] | | [facility] | | [address] | | | - LABORATORY | | [...] | + + + + + | [facility] | [address] | [place] | [phone] | | [facility] | | [address] | | | - LABORATORY | | [...] [address] | [place] | [phone] | | [facility] | | [address] | | | - LABORATORY | | [...] | | | | | | [facility] | | | | | [...] + | [facility] | [address] | [place] | [phone] | | [facility] | | [address] | | | - LABORATORY | | [...] [address] | [place] | [phone] | | [facility] | | [address] | | | - LABORATORY | | [...] | | FILTRATION | mL/min/1.73m2 | [facility] | | | [place] | RATE,ESTIMATED | | MEDICAL | | | | mL/min/1.11u6Rzwu than | | CENTER - | | [...] | | | | | mg/dL | [facility] | | | | | [...] [address] | [place] | [phone] | | [facility] | | [address] | | | - LABORATORY | | [...] [address] | [place] | [phone] | | [facility] | | [address] | | | - LABORATORY | | [...] + | [facility] [facility] | [address] | [place] | [phone] | | [facility] | | [address] | | | - LABORATORY | | [...] ST. | [address] | [place] | [phone] | | [facility] | | [address] | | | - LABORATORY | | [...] [address] | [place] | [phone] | | [facility] | | [address] | | | - LABORATORY | | [...] + | [address] [facility] | [address] | [place] | [phone] | | [facility] | | [address] | | | - LABORATORY | | [...] + | [facility] | [address] | [place] | [phone] | | [facility] | | [address] | | | - LABORATORY | | [...] [address] | [place] | [phone] | | [facility] | | [address] | | | - LABORATORY | | [...] + | [facility] | [address] | [place] | [phone] | | [facility] | | [address] | | | - LABORATORY | | [...] | | FILTRATION | mL/min/1.73m2 | [facility] | | | [place] | RATE,ESTIMATED | | MEDICAL | | | | mL/min/1.23e9Dxma than | | CENTER - | | [...] | | | | | mg/dL | [facility] | | | | | [...] | Address | City/State/[facility] | Phone Number | | Organization | | | | + + + + + | KIRIT PALMER. | [address] | [place] | [phone] | | [facility] | | [address] | | | - LABORATORY | | [...] | Basophils | | K/uL | [facility] | | | | | [...] [address] | [place] | [phone] | | [facility] | | [address] | | | - LABORATORY | | [...] | Address | City/State/[facility] | Phone Number | [...] | REFERENCE | | | | of [place] | | LAB [facility] | | | | standards require a | | - [facility] | | | | culture to beperformed | | | | | | on CSF specimens | | | | | | submitted for bacterial | | | | | | antigen testing.(CAP | | | | | | [id number]) Urine | | | | | | specimens will not be | | | | | | cultured. | | | | + + + + + + + + | Specimen | + + | Urine | + + + + + | Narrative | Performed At | + + + | Performed at: 01 - [facility] [address] [facility], | REFERENCE LAB | | [place], [place] [address] Cuff Turner Machine Operator: Christ Deal MD, Phone: | NIKKI MONZON | | [phone] | | + + + + + + + + | Performing | Address | City/State/Zipcode | Phone Number | | Organization | | | | + + + + + | REFERENCE LAB | [address] | [place] [address] | [phone] | | NIKKI - [address] | Drive [facility] | | | + + + + [...] [address] | [place] | [phone] | | [facility] | | [address] | | | - LABORATORY | | [...] - 1.030 | [facility] | | | [place] | | | [facility] | | [...] [address] | [place] | [phone] | | [facility] | | [address] | | | - LABORATORY | | [...] | | | | | | use [place] 10/325 if ordered. If | | | [...] scheduled: AC, NPO, Daytime | | | 6259-8994 Use NIGHT DOSE for | | | doses scheduled: HS, 3AM, | | | Nighttime 9193-2476, | | + +---+ | | | [...]
--- OUTSIDE RECORDS SUMMARY | ~2019-04-05 | XMS | Encounter Summary ---
Demographics + + + | Address | [address] | | | [place] [address] | + + + | Home Phone [...] | [facility] [place] | | | and [place] | + + + | Address | Unknown | + + + | Phone | Unavailable | + + + Support + + + + + | Name | Relationship | Address | Phone | + + + + + | Jessica Shepard | ECON | [address] | | | | | [place] | | | | | [address] | | + + + + + | Bel Solis | ECON | Unknown | | + + + + + | José Shepard | ECON | [place] | | | | | [address] | | + + + + + | Jessica Shepard | ECON | Unknown | | + + + + + Care Team Providers + +------+ + | Care Mattress Maker Name | Role | Phone | + +------+ + | Dian Lr NP | PCP | | + +------+ + Encounter Details +--------+ + + + + | Date | Type | Department | Care Team | Description | +--------+ + + + + | 05/14/ | Hospital | [facility] GENER[facility] | Conversion | Pain | | 2017 | Encounter | CONVERSION [address] | Transaction, | | | | | [address] | Provider Unknown | | | | | [place] | [phone] | | | | | [address] | | | | | | [phone] | | | +--------+ + + + [...]
--- OUTSIDE RECORDS SUMMARY | ~2019-04-05 | XMS | Encounter Summary ---
Demographics + + + | Address | [address] | | | [place] [address] | + + + | Home Phone [...] | [facility] [place] | | | and [place] | + + + | Address | Unknown | + + + | Phone | Unavailable | + + + Support + + + + + | Name | Relationship | Address | Phone | + + + + + | Jessica Shepard | ECON | [address] | | | | | [place] | | | | | [address] | | + + + + + | Bel Solis | ECON | Unknown | | + + + + + | José Shepard | ECON | [place] | | | | | [address] | | + + + + + | Jessica Shepard | ECON | Unknown | | + + + + + Care Team Providers + +------+ + | Care Wax Pumper Name | Role | Phone | + +------+ + PCP | Unavailable | + +------+ + Encounter Details +--------+ + + + + | Date | Type | Department | Care Team | Description | +--------+ + + + + | 04/16/ | Hospital | [facility] | Dian Lr NP | | | 2011 | Encounter | MED CTR XRAY [address] | | | | | [place] | [place] [address] | | | | | [place] [address] | [phone] | | | | | [phone] | | | +--------+ + + + [...] Performed At | + + + | [facility] Diagnostic Imaging Department | [facility] | | [address] [facility] | [facility] | | BONE DENSITY TESTING: [...] Transcribed Date/Time: | | | 04/16/2011 14:14 Train Engineer: VIVEK <Electronically Signed | | | by David Guillermo MD> 04/16/11 1459 | | + + + + + | Procedure Note | + + | Eliel Ornelas Conversion - 04/27/2013 4:38 PM [facility] | | Diagnostic Imaging Department [address] [place] [address] | | BONE DENSITY TESTIN04/16/2011 CLINICAL HISTORY: [...] 13:48 | |Transcribed Date/Time: 04/16/2011 14:14 | |Train Engineer: | |<Electronically Signed by David Guillermo MD> 04/16/11 8023 | + + + +---------+ + + [...]
--- OUTSIDE RECORDS SUMMARY | ~2019-04-05 | XMS | Clinical Summary ---
Demographics + + + | Address | [address] | | | [place] [address] | + + + | Home Phone [...] + | Organization | [facility] [place] | | | and [place] | + + + | Address | Unknown | + + + | Phone | Unavailable | + + + Support + + + + + | Name | Relationship | Address | Phone | + + + + + | Jessica Shepard | ECON | [address] | | | | | [place] | | | | | [address] | | + + + + + | Bel Solis | ECON | Unknown | | + + + + + | José Shepard | ECON | [place] | | | | | [address] | | + + + + + | Jessiac Shepard | ECON | Unknown | | + + + + + Care Team Providers + +------+ + | Care Cut Off Sawyer Log Name | Role | Phone | + +------+ + | Dian Lr AERIAL PHOTOGRAPHER | PCP | | + +------+ + [...] + + + | Overview: Problem List Shank Breaker Utility | + + + + + [...] +--------+ +---------+--------+ | MEDICARE | MEDICA | [id number] | | [phone] | | Medica | | | RE | | 012-Pr | 5 | | re | | | PART A | | esent | | | | | | AND B | | | | | | + +--------+ +--------+ +---------+--------+ | VETERANS ADMIN | VETERA | [id number] | | | | Indemn | | | NS | | 018-Pr | | | ity | | | ADMIN | | esent | | | | | | [place] | | | | | | | | [place] | | | | | | + +--------+ +--------+ +---------+--------+ | MEDICARE | MEDICA | [id number] | | [phone] | | Medica | [...] Person | Self [birth year] | [address] | | | al/Fam | | 1945 | [id number] | [place] | | | carlos | | | 2 (Home) | [address] | + +--------+ +--------+ + + | Reagan Shepard | Person | Self [birth year] | [address] | | | al/Fam | | 1945 | [phone] | [place] | | | carlos | | | 2 (Home) | [address] | + +--------+ +--------+ + + Advance Directives + + + + + | Type | Date Recorded | Patient | Explanation | | | | Meter/Relay Craftsman | | + + + + + | Power of | | | | | Cyber Threat Analyst | | | | + + + [...]
--- OUTSIDE RECORDS SUMMARY | ~2019-04-05 | XMS | Encounter Summary ---
Demographics + + + | Address | [address] | | | [place] [address] | + + + | Home Phone [...] Organization | [facility] | | | and [place] | + + + | Address | Unknown | + + + | Phone | Unavailable | + + + Support + + + + + | Name | Relationship | Address | Phone | + + + + + | Jessica Shepard | ECON | [address] | | | | | [place] | | | | | [address] | | + + + + + | Bel Solis | ECON | Unknown | | + + + + + | José Shepard | ECON | [place] | | | | | [address] | | + + + + + | Jessica Shepard | ECON | Unknown | | + + + + + Care Team Providers + +------+ + | Care Inside Sales Account Representative Name | Role | Phone | + +------+ + | Dian Lr NP | PCP | | + +------+ + Encounter Details +--------+ + + + + | Date | Type | Department | Care Team | Description | +--------+ + + + + | 05/14/ | Hospital | [facility] | Marlin Mckeon | Received intravenous | | 2017 - | Encounter | [facility] | MD [place] [address] | tissue plasminogen | | | | CARE FLOOR [address] [place] | activator (tPA) in | | 05/19/ | | [address] | [id number] | emergency | | 2017 | | [facility] [place] | | department; Acute | | | | [address] | | left hemiparesis | | | | [phone] | | ([facility]); 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 | | | | | | with hyperglycemia, | | | | | | with long-term | | | | | | current use of | | | | | | insulin ([facility]); | | | | | | Ischemic stroke | | | | | | diagnosed during | | | | | | current admission | | | | | | ([facility]); 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, with | | | | | | long-term current | | | | | | use of insulin | | | | | | ([facility]); Moderate | | | | | | protein-calorie | | | | | | malnutrition ([facility]); | | | | | | [...] Date of Service: 05/19/16 105 Status: Signed Materials Coordinator: Jeff Corley DO (Physician) [facility] Service: Hospitalist Discharge Summary Date of [...] edema Skin - dry no erythema Disposition: custodial Condition: Stable Code Status: Full [...] Tolerated Follow up: Saurabh Fritz, DO [address] [facility] [address] [place] [address] Medication List START taking these medications atorvastatin [...] Date of Service: 05/19/16 1231 Status: Signed Materials Coordinator: Sandra Cedillo RN (Registered Nurse) Report given to ELLIOT M[facility]quez at [facility]. Pt aware of transfer plan. Facility van to pick pt up at 1300. onver elder Transaction, Provider Unknown - 05/19/2016 11:41 AM PST Case Management by Lisa Hogan RN at 05/19/16 1141 Author: Lisa Hogan RN Service: (none) Author Type: Registered Nurse Filed: 05/19/16 1142 Date of Service: 05/19/16 1141 Status: Signed Materials Coordinator: Lisa Hogan RN (Registered Nurse) 05/19/16 1128 Anticipated Disposition Facility Type [facility] facility Discharge Appointment Time 1300 Medicare Important Message (ROS) Given [facility] Care Facility Other (comment) ([facility]) Disposition: [facility] Transportation: W/C van provided by facility All orders, signed AVS, and prescriptions have been faxed All DC paperwork completed Patient and family in agreement with discharge plan Medicare important message (Given or N/A): yes Tc to spouse Jessica who agrees with d/c plan to [facility]. Negar onver elder Transaction, Provider Unknown - 05/19/2016 11:40 AM PST Therapy Progress Note by Theresa Gonzales PT at 05/19/16 1140 Author: Theresa Gonzales PT Service: (none) Author Type: Physical Therapist Filed: 05/19/16 1140 Date of Service: 05/19/16 1140 Status: Signed Materials Coordinator: Thersea Gonzales PT (Physical Therapist) 05/19/16 1139 PT [...] Author: HARIS Lemon Service: (none) Author Type: Content Management Consultant Filed: 05/19/16 1114 Date of Service: 05/19/16 1102 Status: Signed Materials Coordinator: HARIS Lemon (Content Management Consultant) 05/19/16 1100 Discharge Planning Evaluation Admitting Diagnosis CVA, TPA given Anticipated Disposition Facility Type [facility] facility [facility] Facility Other (comment) ([facility]) DOCUMENTATION MANAGER p/c Cheryl Bashir [facility] Coordinator, states she received phone call from [facility], asking for authorization. DOCUMENTATION MANAGER assisted Pt and Pt (Jessica Shepard [phone]) regarding VA GEC form, assisted with form and faxed to [facility] Coordinator - Cheryl Bashir [phone] ext. [phone]. During filli ng out GEC form, Pt stated "We wanted [facility] over [facility], but we were told [facility] [place] denied by [place]." DOCUMENTATION MANAGER provided choice of accepting facili ties. DOCUMENTATION MANAGER p/c Carlos with [facility] states they will accept Pt, they are VA contracted, if Pt choice. DOCUMENTATION MANAGER met with Negar ZARATE regarding the discrepancy of information about Pt choice. DOCUMENTATION MANAGER with Negar ZARATE met with Pt and Pt (Jessica Shepard) regarding choice, after lengthy discussion, they went back and forth regarding facilities, Pt finally chose [facility]. DCP: [facility] NAOMY GALAN, Content Management Consultant [phone] cell onver elder Transaction, Provider Unknown - 05/19/2016 8:06 AM PST Case Management by Lisa Hogan RN at 05/19/16 0806 Author: Lisa Hogan RN Service: (none) Author Type: Registered Nurse Filed: 05/19/162 Date of Service: 05/19/16805 Status: Addendum Materials Coordinator: Lisa Hogan RN (Registered Nurse) Related Notes: Original Note by Lisa Hogan RN (Registered Nurse) filed at 05/19/16 082 1 0800:Tc to Carlos at [facility]/[phone] re VA benefits and acceptance. Tc to Jessica, she states she rather have pt go to [facility] and not [facility]. Went to meet with pt and he spoke to Jessica over the phone and agrees with going to [facility]. Tc to Jimmy at [facility], left [facility] re acceptance. 1030: per Jimmy, they can transport pt today at 1300 via w/c van. Jimmy states they are VA contracted and pt does not have to move to another [place] facility after the 20 days of medicar e have . Pt can be transitioned to VA on the if the [facility] paperwork is submitt ed now to the VA. Notified pt and spouse Jessica as this was their concern. DOCUMENTATION MANAGER Naomy was given referral to assist in completing the GE process. Faxed PT/MD notes to [facility] coordinator per her request. Notified primary RN and Dr Corley about d/c. Negar onver elder Transaction, Provider Unknown - 05/19/2016 5:25 AM PST Nurse Progress Note by Hero You RN at 05/19/16524 Author: Hero You RN Service: (none) Author Type: Registered Nurse Filed: 05/19/16524 Date of Service: 05/19/16524 Status: Signed Materials Coordinator: Hero You RN (Registered Nurse) No acute changes from previous end of shift report. Will continue monitoring. Hero You RN 05/19/2016 onver elder Transaction, Provider Unknown - 05/18/2016 6:32 PM PST Nurse Progress Note by Sandra Cedillo RN at 05/18/161831 Author: Sandra Cedillo RN Service: (none) Author Type: Registered Nurse Filed: 05/18/161833 Date of Service: 05/18/161831 Status: Signed Materials Coordinator: Sandra Cedillo RN (Registered Nurse) Pt had [...] Service: Hospitalist Author Type: Physician Filed: 05/18/16 1253 Date of Service: 05/18/16 1252 Status: Signed Materials Coordinator: Jeff Corley DO (Physician) PROGRESS NOTE 05/18/2016 [...] Problem: Ischemic stroke diagnosed during current admission ([facility]) Active Problems: Received intravenous tissue plasminogen activator (tPA) in emergency department Acute left hemiparesis ([facility]) Type 2 diabetes mellitus with hyperglycemia, with long-term current use of insulin ([facility]) Type 2 diabetes mellitus with diabetic neuropathy, with long-term current use of insulin ([facility]) Moderate protein-calorie malnutrition (HCC) GERD (gastroesophageal reflux disease) Hypokalemia Essential hypertension, benign Length of stay: 4 days DVT prophylaxis: enox Code status: full code Disposition: inpatient SUBJECTIVE Patient seen/examined with rounding team, lying in bed, had an extended conversation with c ase talent solutions manager about which SNF's/towns he liked and [...] Date of Service: 05/18/16 1150 Status: Signed Materials Coordinator: Jenn Richey RD (Registered Dietitian) 05/18/16 1057 [...] Physical Findings Digestive System (Mouth to Rectum) TANK FILLER following for dysphagia Anthropometrics Weight change Wt [...] Date of Service: 05/18/16 1131 Status: Addendum Materials Coordinator: Lisa Hogan RN (Registered Nurse) Related Notes: Original Note by Lisa Hogan RN (Registered Nurse) filed at 05/18/16 154 2 1000: Tc from Shara([phone] ext [phone]) with VA "Gec" program regardign snf placemen t. Per Ly, pt needs to go to a VA contracted snf if he wants the VA to provide for copay after his medicare coverage no longer pays 100%. Ly statesthese are some available VA c ontracted snfs: [facility], [facility], [facility], [facility]. [facility] a nd [place] are not contracted with them. Per Ly, if paperwork(PT/MD notes and GEC form ) is submitted now, they can admit pt to a VA contracted snf under VA benefits. Informed Salo wang will discuss with pt and spouse Jessica. Per email from Sheila with IPR, pt declined for IPR. 1130:Tc to Jinny/[facility], she states pt operations supervisor 2nd shift nurse's note, pt has been restless an d research and evaluation manager light continously and on IV fentanyl, she is not sure she has the man power to acc ept pt. 1200: Tc to spouse Jessica, , [facility] regarding snf placement. Met with pt regarding snf and VA benefits. Pt states he will discuss with spouse, but would consider going to [facility]. Sent e-referrals. Pt states Jessica will be here this evening and would like to discuss with CM options. Informed pt [facility]) has accepted pt but they are not VA contracted. 1300: per rounding with pt, he wants referral sent to [facility] too. Referral sent. Referral sent to HARIS Nichols to assist with "GEC" paperwork for the VA 1500: Tc to Carlos with [facility]([phone]), he thinks pt can be accepted when medically roseann dy, but first have to review pt's VA benefits to make sure rehab is covered. Tc to Jessica again,([phone]) left [facility] about rehab placement. Attempted to call Shonda reilly at work,[phone], busy signal. 1530: per Jimmy at [facility], they can accept pt when he is medically ready and if he wants to go there. Notified pt Dunia friedman Transaction, Provider Unknown - 05/18/2016 10:37 AM PST Progress Notes by Khadra Osman RD, DANNY at 05/18/16 1037 Author: Khadra Osman RD, CDE Service: (none) Author Type: Risk Consultant Filed: 05/18/16 1044 Date of Service: 05/18/16 1037 Status: Signed Materials Coordinator: Khadra Osman RD, CDE (Risk Consultant) Met with pt. Reports he's had diabetes for 6 years. He gets all medications through the [facility] for his diabetes. States his of 49 years also has insulin dependent diabetes. At [facility] he was prescribed: 50 units [...] his blood sugar. Reports he's been through [employer] es education classes two times - but [...] the VA. Khadra Osman RD, MPH, CDE, Risk Consultant 05/18/2016 10:43 AM onver elder Transaction, Provider Unknown - 05/18/2016 4:36 AM PST Nurse Progress Note by Hero You RN at 05/18/16435 Author: Hero You RN Service: (none) Author Type: Registered Nurse Filed: 05/18/167 Date of Service: 05/18/16435 Status: Signed Materials Coordinator: Hero You RN (Registered Nurse) Pts VSS, [...] 05/17/161701 Date of Service: 05/17/161699 Status: Signed Materials Coordinator: Sandra Cedillo RN (Registered Nurse) Pt anxious [...] Date of Service: 05/17/16 1500 Status: Signed Materials Coordinator: Cheryl Rodney PT (Physical Therapist) 05/17/16 1500 PT Last Visit PT Received On 05/17/16 Reason for Treatment Stroke Requires PT Follow Up Yes Follow up PT Only? Yes (complexity) Assistance Required [address] Controller Needed No Precautions UE Precaution(s) LUE Precautions/WB [...] lift for transfer back to bed - RN/STAFFING COORDINATOR aware of pt positioning/abilities and need for [...] Barriers to Discharge Cognitive Deficits Impacting Functional [place];Self-care Defici ts Impacting Functional [place];Physical Deficits Impacting Functional [place];Malik rological Impairment (see comment) Recommendation Comments Pt [...] Notes by Jeff Corley DO at 05/17/16 7418 Author: Jeff Corley DO Service: Hospitalist Author Type: Physician Filed: 05/17/16 1600 Date of Service: 05/17/16 1238 Status: Addendum Materials Coordinator: Jeff Corley DO (Physician) Related Notes: Original Note by Jeff Corley DO (Physician) filed at 05/17/16 7653 PROGRESS NOTE 05/17/2016 for Reagan Shepard on the hospitalist service. ASSESSMENT & PLAN Acute CVA S/p tPA, monitored in ICU, neuro stable. Continue aspirin, statin. BP has been in normal range, not an antihypertensives here or at home. Therapies working with patient, hope to transfer to [facility] pending insurance authorization (me mccann). May [...] Problem: Ischemic stroke diagnosed during current admission ([facility]) Active Problems: Received intravenous tissue plasminogen activator (tPA) in emergency department Acute left hemiparesis (HCC) Type 2 diabetes mellitus with hyperglycemia, with long-term current use of insulin (HCC) Type 2 diabetes mellitus with diabetic neuropathy, with long-term current use of insulin ([facility]) Moderate protein-calorie malnutrition (HCC) GERD (gastroesophageal [...] Date of Service: 05/17/16 1144 Status: Addendum Materials Coordinator: Lisa Hogan RN (Registered Nurse) Related Notes: Original Note by Lisa Hogan RN (Registered Nurse) filed at 05/17/16 130 3 Per rounding with pt, he is A&O x4. Pending IPR. Sent email to Sheila at [facility] for status. Left VM for PT regarding f/u with pt 1230:Tc to spouse Jessica regarding snf placement in case I[facility] declines pt. Jessica upset as s he thought "doctor" had told her son yesterday that pt was a good candidate for IPR and was accepted to [facility]. Informed Jessica Alicia has not made decision yet as he is "following pt". Jessica wants referrals sent to [place]/[facility] and [facility]. Jessica asks that we dont mention to pt snf placement yet until a decision i s made about IPR. Negar onver elder Transaction, Provider Unknown - 05/17/2016 10:05 AM PST Therapy Progress Note by TOLU Xiao/Parminder at 05/17/16 1005 Author: GABE Xiao Service: (none) Author Type: Occupational Therapist Filed: 05/17/16 1240 Date of Service: 05/17/16 1005 Status: Signed Materials Coordinator: GABE Xiao (Occupational Therapist) 05/17/16 1005 OT Last Visit OT Received On 05/17/16 Reason for Treatment Stroke Requires OT Follow Up Awaiting tx order OT Eval/Reassessment Date 05/17/16 Assistance Required [address] Traffic Controller Needed No Family/Caregiver Present No Precautions Other Precautions high fall risk, L hemiparesis Other Comments Comments OT eval orders received/verified. Pt willing to participate in OT this AM. Chart r ramon-relevant to OT evaluation: Left sided weakness, s/p IV rtPA with little improvement, due to right bogdan infarction, most likely [id number] in etiology related to uncontrol led DM; [...] Days Recommendation Recommendation Rehab consult Equipment Recommended Rn Provider Relations;Bedside commode;Elastic shoe laces;HHSH OT Ready for Discharge [...] note for PLOF Prior Function Level of [place] Independent with functional mobility;Independent with ADLs;Independe nt [...] equipment (bed level) LE Dressing Adaptive Equipment Rn Provider Relations;Dressing stick Arm Goals Pt Will Tolerate SROM [...] order Recommendation Recommendation Rehab consult Equipment Recommended Rn Provider Relations;Bedside commode;Elastic shoe laces;HHSH OT Ready for Discharge [...] stroke, neurological resource center guide Moderate - 29508 High - 26316 History Expanded review of medical records; additional review of physical, cognitive, or ps ychosocial skills Examination Identification of 5 or more performance deficits Decision Making Presents with comorbidities; significant modification of tasks or assistan ce is needed to complete eval Clinical Decision Making Complexity: Moderate [address]2521 onver elder Harris Provider Unknown - 05/17/2016 5:44 AM PST Nurse Progress Note by Hero You RN at 05/17/1644 Author: Hero Yuo RN Service: (none) Author Type: Registered Nurse Filed: 05/17/16 0550 Date of Service: 05/17/16543 Status: Signed Materials Coordinator: Hero You RN (Registered Nurse) Pts VSS, [...] 05/16/161652 Date of Service: 05/16/161651 Status: Addendum Materials Coordinator: Teena Matthew RN (Registered Nurse) Related Notes: [...] 1514 Date of Service: 05/16/161511 Status: Signed Materials Coordinator: Wing Nina Alicia MD (Physician) Patient seen [...] Calculation (Bezet) 05/14/2016 455 Final Calculated P [place] 05/14/2016 28 Final Calculated R [place] 05/14/2016 -3 Final Calculated T [place] 05/14/2016 38 Final Diagnosis 05/14/2016 Final Value:Normal [...] De La Garza Service: (none) Author Type: Biscuit Factory Worker Filed: 05/16/16 1213 Date of Service: 05/16/16 1205 Status: Signed Materials Coordinator: HARIS De La Garza (Biscuit Factory Worker) 05/16/16 1201 Discharge Planning Evaluation Admitting Diagnosis [...] Yes Name of Pharmacy [facility] [place] [place] [facility] [place] Previous home health equipment Yes;Comment (Pt uses a cane at baseline) Vascular access device No Ostomy/Drains/Appliances (TBD) Anticipated Disposition Facility Type Other (Comment) Met with patient Reagan Shepard and discussed discharge planning. 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 The patient resides with his in [facility]. The patient was alert and oriented. [...] EMS called and patient was brought to [facility] ED. " "Patient is also complaining of a 3-week history of intermittent left-sided weakness and fal ls. He uses a cane for ambulation." Patient's PCP is: Patient's insurance: [employer] & Medicare Coverage concerns: no Medication coverage/concerns: no Rx Bedside Delivery: Preferred Pharmacy: [facility] or [facility] [employer] [facility] resources utilized / needed: TBD Assistance in transportation: Spouse - Jessica Shepard [phone] or work [phone] Identification of any specific education / training: no Barriers to Discharge / Alternative housing needed: TBD Anticipated DCP: Home [facility] [place] Garza John Hill MD - 05/16/2016 8:26 AM PST Progress Notes by John Murdock MD at 05/16/16825 Author: John Murdock MD Service: (none) Author Type: Physician Filed: 05/16/16 1131 Date of Service: 05/16/16825 Status: Addendum Materials Coordinator: John Murdock MD (Physician) Related Notes: Original Note by John Murdock MD (Physician) filed at 05/16/16 1108 [facility] Service: Hospitalist Progress Note Pt: Reagan Shepard AGE/SEX: 71 y.o. male : 1945 ROOM: [facility]/7124-1 REQUESTING PROVIDER: John Murdock MD TODAY'S DATE: 05/16/2016 Hospital Day: LOS: 2 days + past medical history of DM 2 with neuropathy, DDD and TBI Transfer from [facility] A fter seen there with left facial droop and left-sided weakness.,episode of urinary incontin ence and fall, .Acute infarction in the right bogdan, CT head unremarkablMRI e, no ICH. As N IHSS score of 14 TPA Was liza marlowfer to [facility] for further care SUBJECTIVE aprt from witness [...] hours. No results for input(s): PHART, PO2ART, SLH3ZTY, W9BRAQJR, BEART in the last 168 hours. No results for input(s): APTT, INR, PTT in the last 168 hours. No results for input(s): TSH, T3FREE, FREET4 in the last 168 hours. No results for input(s): CKTOTAL, TROPONINI, TROPONINT, CKMBINDEX in the last 168 hours. PROBLEM LIST Principal Problem: Ischemic stroke diagnosed during current admission ([facility]) Active Problems: Received intravenous tissue plasminogen activator (tPA) in emergency department Acute left hemiparesis ([facility]) Type 2 diabetes mellitus with hyperglycemia, with long-term current use of insulin (HCC) Type 2 diabetes mellitus with diabetic neuropathy, with long-term current use of insulin (HCC) Moderate protein-calorie malnutrition (HCC) GERD (gastroesophageal reflux disease) Hypokalemia Essential hypertension, benign ASSESSMENT & PLAN Principal Problem: Ischemic stroke-Acute left hemiparesis ([facility]) Ischemic stroke s/p TPA (05/14) ASA [...] this point his current strok are pattern skylights assembler ior circulation at this point asymtomatic carotid stenosiis Consider and need f/ up vascular at out patie nt once d/c Angelica Pearson M D - 05/16/2016 8:26 AM PST Progress Notes by Angelica Bernardo MD at 05/16/16825 Author: Angelica Bernardo MD Service: Neurology Author Type: Physician Filed: 05/16/16840 Date of Service: 05/16/16825 Status: Signed Materials Coordinator: Angelica Bernardo MD (Physician) Subjective: Patient seen [...] due to right bogdan infarction, most likely objzlt-ax-jjoyvf in etiology related to uncontrolled DM. 2- [...] patient and no documen tation), recommend terminal make up operator Holter (30 days). 8. General care [...] 05/16/16514 Date of Service: 05/16/16512 Status: Signed Materials Coordinator: Hero You RN (Registered Nurse) Pt A&OX4, [...] 05/15/161938 Date of Service: 05/15/161930 Status: Addendum Materials Coordinator: Sandra Cedillo RN (Registered Nurse) Related Notes: [...] (none) Author Type: Physical Therapist Filed: 05/15/16 4779 Date of Service: 05/15/16 1242 Status: Signed Materials Coordinator: oDuglas Coelho PT (Physical Therapist) 05/15/16 1242 PT Last Visit PT Received On 05/15/16 Reason for Treatment Stroke Requires PT Follow Up Awaiting tx order Follow up PT Only? Yes (complexity) PT Eval/Reassessment Date 05/15/16 Assistance Required [address] Controller Needed No Home Environment Type of Home Home two story Home Exterior Layout Entry steps none Home Interior Layout Flight one;Rail on L ascending;Lives on main level with bedroom/bathro om;Walker accessible Bathroom Shower/Tub Tub/shower unit Bathroom Toilet Standard Bathroom Equipment Hand-held shower head;Tub transfer bench Bathroom Accessibility Accessible via walker Home Equipment Walker 4 wheeled;Cane single point Prior Function Level of [place] Independent with functional mobility;Independent with ADLs;Independe nt [...] Barriers to Discharge Cognitive Deficits Impacting Functional [place];Physical Deficit s Impacting Functional [place];Self-care Deficits Impacting Functional [place];Malik rological Impairment (see comment) Recommendation Comments pt. needs Max x 2 for transfers and mobility and should benefit fro m SNF to improve strength, endurance and functional mobility 05/15/16 1242 PT Last Visit PT Received On 05/15/16 Reason for Treatment Stroke Requires PT Follow Up Awaiting tx order Follow up PT Only? Yes (complexity) PT Eval/Reassessment Date 05/15/16 Assistance Required [address] Controller Needed No Precautions UE Precaution(s) LUE Precautions/WB [...] Barriers to Discharge Cognitive Deficits Impacting Functional [place];Physical Deficit s Impacting Functional [place];Self-care Deficits Impacting Functional [place];Malik rological Impairment (see comment) Recommendation Comments pt. needs Max x 2 for transfers and mobility and should benefit fro m SNF to improve strength, endurance and functional mobility Low - 03274 Moderate - 52657 High - 56227 History no personal factors &/or comorbidities 1-2 personal factors &/or comorbidities 3 o r more personal factors &/or comorbidities Examination 1-2 elements 3 elements 4 or more elements Clinical Presentation stable evolving unstable Clinical Decision Making Complexity: Low 28908 Moderate 04461 High 11409 Viviana Ferrer ARNP - 05/15/2016 9:41 AM PSTFormatting of this note might be different from stephanie brown original. Progress Notes by RUBEN Atkins at 05/15/16 9395 Author: RUBEN Atkins Service: Coining Press Operator Author Type: Advanced Registered January rooney Practitioner Filed: 05/15/16 4393 Date of Service: 05/15/1673 Status: Signed Materials Coordinator: RUBEN Atkins (Advanced Registered Nurse Practitioner) [facility] Service: Coining Press Operator Progress Note [facility] 71 [facility] [...] EMS called and patient was brought to [facility] ED. Patient was last seen normal [...] of 14. Follow up on arrival to [facility] 9. Dr. Tova marin Keep BP < 180/105 mmHg, brain MRI 24 hours post-TPA with no e/o hemorrhage. Keep normoth ermic, normoglycemic. PT/OT/TANK FILLER following. ? cardioembolic as cause for ischemic [...] On room air. GI/NUTRITION: Moderate protein-calorie malnutrition: [place] thick liquids per TANK FILLER recs. GERD: on protonix at home. 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 2- [...] per patient and no documen tation), recommend prison Holter (30 days). 9. Consult PT, OT, [...] 05/14/161528 Date of Service: 05/14/161528 Status: Signed Materials Coordinator: Pretty Dhillon RD, CD (Registered Dietitian) 05/14/161516 [...] Fluid / Beverage Intake Oral Fluids Amount [place] thick liquids ad bryant. Ok for 1 [...] subcutaneous fat. Digestive System (Mouth to Rectum) TANK FILLER following for dysphagia. Skin Intact. Anthropometrics Weight [...] Estimated Energy Needs Total Energy Estimated Needs 3661-0499 kcal/day Method for Estimating Needs 25-30 kcal/kg admit wt (84.7 kg) Estimated Protein Needs Total Protein Estimated Needs 102-127 g protein/day Method for Estimating Needs 1.2-1.5 g protein/kg admit wt (84.7 kg) Recommendations Recommended energy needs Recommend adding diabetic diet restrictions to current TANK FILLER diet or nigel to help optimize glycemic [...] Therapy Progress Note by Kate Hale MA CCC-TANK FILLER at 05/14/16911 Author: Kate Hale MA CCC-TANK FILLER Service: (none) Author Type: Speech and Language Patholo gist Filed: 05/14/16 0945 Date of Service: 05/14/16911 Status: Signed Materials Coordinator: Kate Hale MA CCC-TANK FILLER (Speech and Language Pathologist) 05/14/16911 TANK FILLER Last Visit TANK FILLER Received On 05/14/16 Requires TANK FILLER Follow Up Yes Swallowing Assessment Eval Swallowing [...] 1/2 trials by cup, none by spoon) [place] Presentation Cup;Self Fed Oral WFL Pharyngeal Phase [...] Larynge al Elevation Recommendations Liquids Consistency Recommendations [place] thick;Ice chips for oral comfort Diet Consistency [...] diet textures, no awareness until cued by TANK FILLER. At this time, recommen d puree diet [...] monitoring;Patient/Family education; Assessment for upgrade Dysphagia Goals Marina Manager Goals Safe/efficient oral intake Pt will have safe/efficient oral intake Thin liquids;Mechanical soft diet;With min cues;Ne w/revised goal Short Term Goals Tolerate liquid consistency Pt will tolerate tolerate liquid consistency [place] thick liquids;with 1:1 supervision;New /revised goal onver elder Transaction, Provider Unknown - 05/14/2016 9:12 AM PST Therapy Progress Note by Zenon Schaeffer PT at 05/14/16 0912 Author: Zenon Schaeffer PT Service: Physical Medicine and Rehab Author Type: Physical Therapist Filed: 05/14/16 1556 Date of Service: 05/14/16911 Status: Signed Materials Coordinator: Zenon Schaeffer PT (Physical Therapist) 05/14/16 09 [...] 05/14/16556 Date of Service: 05/14/16556 Status: Signed Materials Coordinator: Iggy Lee RPH (Pharmacist) Pharmacy will renal [...] | | | Fingerstick | performed at [facility];[address] | | LAB | | | | [address];[place] | | | | | | [address] | | | | + + + [...] | | | Fingerstick | performed at [facility];[address] | | LAB | | | | [address];[place] | | | | | | [address] | | | | + + + [...] | | | Fingerstick | performed at [facility];[address] | | LAB | | | | [address];[place] | | | | | | [address] | | | | + + + [...] | | | Fingerstick | performed at [facility];[address] | | LAB | | | | [address];[place], [place] | | | | | | [address] | | | | + + + [...] | | | Fingerstick | performed at [facility];[address] | | LAB | | | | [address];[place] | | | | | | [address] | | | | + + + [...] | | | Fingerstick | performed at [facility];[address] | | LAB | | | | [address];[place], [place] | | | | | | [address] | | | | + + + [...] EXTERNAL | | | | performed at [facility], [address] | K/uL | LAB | | | | [address], | | | | | | [place] [address] | | | | + + + + + + | RED CELL | 4.96Comment: Testing | 4.20 - 5.70 | EXTERNAL | | | COUNT | performed at [facility], [address] | M/uL | LAB | | | | [address], | | | | | | [place] [address] | | | | + + + + + + | Hgb | 14.1Comment: Testing | 13.2 - 17.0 | EXTERNAL | | | | performed at [facility], [address] | g/dL | LAB | | | | [address], | | | | | | [place] [address] | | | | + + + + + + | Hematocrit, | 40.8Comment: Testing | 39.0 - 50.0 % | EXTERNAL | | | POC | performed at [facility], [address] | | LAB | | | | [address], | | | | | | [place] [address] | | | | + + + + + + | MCV | 82.3Comment: Testing | 80.0 - 100.0 fl | EXTERNAL | | | | performed at [facility], [address] | | LAB | | | | [address], | | | | | | [place] [address] | | | | + + + + + + | MCH | 28.5Comment: Testing | 27.0 - 34.0 pg | EXTERNAL | | | | performed at [facility], [address] | | LAB | | | | [address], | | | | | | [place] [address] | | | | + + + + + + | MCHC | 34.6Comment: Testing | 32.0 - 35.5 | EXTERNAL | | | | performed at [facility], [address] | g/dL | LAB | | | | [address], | | | | | | [place] [address] | | | | + + + + + + | RDW-CV | 42.0Comment: Testing | 37 - 53 fl | EXTERNAL | | | | performed at [facility], [address] | | LAB | | | | [address], | | | | | | [place] [address] | | | | + + + + + + | Platelet | 219Comment: Testing | 150 - 400 K/uL | EXTERNAL | | | Count | performed at [facility], [address] | | LAB | | | Plasma | [address], | | | | | | [place] [address] | | | | + + + + + + | MPV | 8.6Comment: Testing | fl | EXTERNAL | | | | performed at [facility], [address] | | LAB | | | | [address], | | | | | | [place] [address] | | | | + + + + + + | Differentia | AUTOMATEDComment: | | EXTERNAL | | | l Type | Testing performed at | | LAB | | | | [facility], [address] | | | | | | [place] | | | | | | [address] | | | | + + + + + + | % Segmented | 65.52Comment: Testing | % | EXTERNAL | | | | performed at [facility], [address] | | LAB | | | Neutrophils | [address], | | | | | | [place] [address] | | | | + + + + + + | % | 22.13Comment: Testing | % | EXTERNAL | | | Lymphocytes | performed at [facility], [address] | | LAB | | | | [address], | | | | | | [place] [address] | | | | + + + + + + | % Monocytes | 9.16Comment: Testing | % | EXTERNAL | | | | performed at [facility], [address] | | LAB | | | | [address], | | | | | | [place] [address] | | | | + + + + + + | % | 2.44Comment: Testing | % | EXTERNAL | | | Eosinophils | performed at [facility], [address] | | LAB | | | | [address], | | | | | | [place] [address] | | | | + + + + + + | % Basophils | 0.75Comment: Testing | % | EXTERNAL | | | | performed at [facility], [address] | | LAB | | | | [address], | | | | | | [place] [address] | | | | + + + + + + | Absolute | 6.91Comment: Testing | 1.90 - 7.40 | EXTERNAL | | | Segmented | performed at [facility], [address] | K/uL | LAB | | | Neutrophils | [address], | | | | | | [place] [address] | | | | + + + + + + | Absolute | 2.33Comment: Testing | 1.00 - 3.90 | EXTERNAL | | | Lymphocytes | performed at [facility], [address] | K/uL | LAB | | | | [address], | | | | | | [place] [address] | | | | + + + + + + | Absolute | 0.97 (H)Comment: Testing | 0.00 - 0.80 | EXTERNAL | | | Monocytes | performed at [facility], [address] | [address]/uL | LAB | | | | [address], | | | | | | [place] [address] | | | | + + + + + + | Absolute | 0.26Comment: Testing | 0.00 - 0.50 | EXTERNAL | | | Eosinophils | performed at [facility], [address] | K/uL | LAB | | | | [address], | | | | | | [place] [address] | | | | + + + + + + | Absolute | 0.08Comment: Testing | 0.00 - 0.10 | EXTERNAL | | | Basophils | performed at [facility], [address] | K/uL | LAB | | | | [address], | | | | | | [place] [address] | | | | + + + [...] EXTERNAL | | | | performed at [facility], [address] | | LAB | | | | [address], | | | | | | [place] [address] | | | | + + + [...] EXTERNAL | | | | performed at [facility], [address] | | LAB | | | | [address], | | | | | | [place] [address] | | | | + + + [...] EXTERNAL | | | | performed at [facility], [address] | mmol/L | LAB | | | | [address], | | | | | | [place] [address] | | | | + + + [...] | | | | | [place] [address] | | | | + + + + + + | CO2 | 27Comment: Testing | 23 - 32 mmol/L | EXTERNAL | | | | performed at [facility], [address] | | LAB | | | | [address], | | | | | | [place] [address] | | | | + + + + + + | Anion Gap | 12Comment: Testing | 5 - 20 mmol/L | EXTERNAL | | | | performed at [facility], [address] | | LAB | | | | [address], | | | | | | [place] [address] | | | | + + + + + + | Glucose, | 143 (H)Comment: Testing | 65 - 99 mg/dL | EXTERNAL | | | Fasting | performed at [facility], [address] | | LAB | | | | [address], | | | | | | [place] [address] | | | | + + + + + + | BUN | 9Comment: Testing | 8 - 25 mg/dL | EXTERNAL | | | | performed at [facility], [address] | | LAB | | | | [address], | | | | | | [place] [address] | | | | + + + + + + | Creatinine | 0.6 (L)Comment: Testing | 0.70 - 1.30 | EXTERNAL | | | | performed at [facility], [address] | mg/dL | LAB | | | | [address], | | | | | | [place] [address] | | | | + + + + + + | BUN/Creatin | 15Comment: Testing | | EXTERNAL | | | ine Ratio | performed at [facility], [address] | | LAB | | | | [address], | | | | | | [place] [address] | | | | + + + + + + | Calcium | 8.6Comment: Testing | 8.5 - 10.5 | EXTERNAL | | | | performed at [facility], [address] | mg/dL | LAB | | | | [address], | | | | | | [place] [address] | | | | + + + [...] | | | | | [place] [address] | | | | + + + [...] | | | Fingerstick | performed at [facility];[address] | | LAB | | | | [address];[place], [place] | | | | | | [address] | | | | + + + [...] | | | Fingerstick | performed at [facility];[address] | | LAB | | | | [address];[place], [place] | | | | | | [address] | | | | + + + [...] | | | Fingerstick | performed at [facility];[address] | | LAB | | | | [address];[place] | | | | | | [address] | | | | + + + [...] | | | Fingerstick | performed at [facility];[address] | | LAB | | | | [address];[place] | | | | | | [address] | | | | + + + [...] | | | | [facility], [address] | | | | | | [place] | | | | | | [address] | | | | + + + + + + | RED CELL | 4.92Comment: Testing | 4.20 - 5.70 | EXTERNAL | | | COUNT | performed at [facility], [address] | M/uL | LAB | | | | [address], | | | | | | [place] [address] | | | | + + + + + + | Hgb | 13.9Comment: Testing | 13.2 - 17.0 | EXTERNAL | | | | performed at [facility], [address] | g/dL | LAB | | | | [address], | | | | | | [place] [address] | | | | + + + + + + | Hematocrit, | 40.8Comment: Testing | 39.0 - 50.0 % | EXTERNAL | | | POC | performed at [facility], [address] | | LAB | | | | [address], | | | | | | [place] [address] | | | | + + + + + + | MCV | 83.0Comment: Testing | 80.0 - 100.0 fl | EXTERNAL | | | | performed at [facility], [address] | | LAB | | | | [address], | | | | | | [place] [address] | | | | + + + + + + | MCH | 28.3Comment: Testing | 27.0 - 34.0 pg | EXTERNAL | | | | performed at [facility], [address] | | LAB | | | | [address], | | | | | | [place] [address] | | | | + + + + + + | MCHC | 34.0Comment: Testing | 32.0 - 35.5 | EXTERNAL | | | | performed at [facility], [address] | g/dL | LAB | | | | [address], | | | | | | [place] [address] | | | | + + + + + + | RDW-CV | 42.4Comment: Testing | 37 - 53 fl | EXTERNAL | | | | performed at [facility], [address] | | LAB | | | | [address], | | | | | | [place] [address] | | | | + + + + + + | Platelet | 215Comment: Testing | 150 - 400 K/uL | EXTERNAL | | | Count | performed at [facility], [address] | | LAB | | | Plasma | [address], | | | | | | [place] [address] | | | | + + + + + + | MPV | 8.5Comment: Testing | fl | EXTERNAL | | | | performed at [facility], [address] | | LAB | | | | [address], | | | | | | [place] [address] | | | | + + + + + + | Differentia | AUTOMATEDComment: | | EXTERNAL | | | l Type | Testing performed at | | LAB | | | | [facility], [address] | | | | | | [place] | | | | | | [address] | | | | + + + + + + | % Segmented | 70.19Comment: Testing | % | EXTERNAL | | | | performed at [facility], [address] | | LAB | | | Neutrophils | [address], | | | | | | [place] [address] | | | | + + + + + + | % | 17.93Comment: Testing | % | EXTERNAL | | | Lymphocytes | performed at [facility], [address] | | LAB | | | | [address], | | | | | | [place] [address] | | | | + + + + + + | % Monocytes | 8.97Comment: Testing | % | EXTERNAL | | | | performed at [facility], [address] | | LAB | | | | [address], | | | | | | [place] [address] | | | | + + + + + + | % | 2.27Comment: Testing | % | EXTERNAL | | | Eosinophils | performed at [facility], [address] | | LAB | | | | [address], | | | | | | [place] [address] | | | | + + + + + + | % Basophils | 0.64Comment: Testing | % | EXTERNAL | | | | performed at [facility], [address] | | LAB | | | | [address], | | | | | | [place] [address] | | | | + + + + + + | Absolute | 7.86 (H)Comment: Testing | 1.90 - 7.40 | EXTERNAL | | | Segmented | performed at [facility], [address] | [address]/uL | LAB | | | Neutrophils | [address], | | | | | | [place] [address] | | | | + + + + + + | Absolute | 2.01Comment: Testing | 1.00 - 3.90 | EXTERNAL | | | Lymphocytes | performed at [facility], [address] | K/uL | LAB | | | | [address], | | | | | | [place] [address] | | | | + + + + + + | Absolute | 1.01 (H)Comment: Testing | 0.00 - 0.80 | EXTERNAL | | | Monocytes | performed at [facility], [address] | K/uL | LAB | | | | [address], | | | | | | [place] [address] | | | | + + + + + + | Absolute | 0.25Comment: Testing | 0.00 - 0.50 | EXTERNAL | | | Eosinophils | performed at [facility], [address] | K/uL | LAB | | | | [address], | | | | | | [place] [address] | | | | + + + + + + | Absolute | 0.07Comment: Testing | 0.00 - 0.10 | EXTERNAL | | | Basophils | performed at [facility], [address] | K/uL | LAB | | | | [address], | | | | | | [place] [address] | | | | + + + [...] EXTERNAL | | | | performed at [facility], [address] | | LAB | | | | [address], | | | | | | [place] [address] | | | | + + + [...] | | | | | [place] [address] | | | | + + + [...] | | | | | [place] [address] | | | | + + + + + + | K | 3.9Comment: Testing | 3.5 - 4.9 | EXTERNAL | | | | performed at [facility], [address] | mmol/L | LAB | | | | [address], | | | | | | [place] [address] | | | | + + + + + + | Cl | 103Comment: Testing | 99 - 109 mmol/L | EXTERNAL | | | | performed at [facility], [address] | | LAB | | | | [address], | | | | | | [place] [address] | | | | + + + + + + | CO2 | 25Comment: Testing | 23 - 32 mmol/L | EXTERNAL | | | | performed at [facility], [address] | | LAB | | | | [address], | | | | | | [place] [address] | | | | + + + + + + | Anion Gap | 15Comment: Testing | 5 - 20 mmol/L | EXTERNAL | | | | performed at [facility], [address] | | LAB | | | | [address], | | | | | | [place] [address] | | | | + + + + + + | Glucose, | 132 (H)Comment: Testing | 65 - 99 mg/dL | EXTERNAL | | | Fasting | performed at [facility], [address] | | LAB | | | | [address], | | | | | | [place] [address] | | | | + + + + + + | BUN | 9Comment: Testing | 8 - 25 mg/dL | EXTERNAL | | | | performed at [facility], [address] | | LAB | | | | [address], | | | | | | [place] [address] | | | | + + + + + + | Creatinine | 0.5 (L)Comment: Testing | 0.70 - 1.30 | EXTERNAL | | | | performed at [facility], [address] | mg/dL | LAB | | | | [address], | | | | | | [place] [address] | | | | + + + + + + | BUN/Creatin | 18Comment: Testing | | EXTERNAL | | | ine Ratio | performed at [facility], [address] | | LAB | | | | [address], | | | | | | [place] [address] | | | | + + + + + + | Calcium | 8.4 (L)Comment: Testing | 8.5 - 10.5 | EXTERNAL | | | | performed at [facility], [address] | mg/dL | LAB | | | | [address], | | | | | | [place] [address] | | | | + + + + + + | Protein, | 6.0 (L)Comment: Testing | 6.3 - 8.2 g/dL | EXTERNAL | | | Total | performed at [facility], [address] | | LAB | | | | [address], | | | | | | [place] [address] | | | | + + + + + + | Albumin | 3.0 (L)Comment: Testing | 3.3 - 4.8 g/dL | EXTERNAL | | | | performed at [facility], [address] | | LAB | | | | [address], | | | | | | [place] [address] | | | | + + + + + + | Globulin | 3.0Comment: Testing | 1.3 - 4.9 g/dL | EXTERNAL | | | | performed at [facility], [address] | | LAB | | | | [address], | | | | | | [place] [address] | | | | + + + + + + | A/G Ratio | 1.0Comment: Testing | 1.0 - 2.4 | EXTERNAL | | | | performed at [facility], [address] | | LAB | | | | [address], | | | | | | [place] [address] | | | | + + + + + + | Bilirubin | 1.4Comment: Testing | 0.1 - 1.5 mg/dL | EXTERNAL | | | Total | performed at [facility], [address] | | LAB | | | | [address], | | | | | | [place] [address] | | | | + + + + + + | ALP, | 77Comment: Testing | 35 - 115 U/L | EXTERNAL | | | External | performed at [facility], [address] | | LAB | | | | [address], | | | | | | [place] [address] | | | | + + + + + + | AST | 14Comment: Testing | 10 - 45 U/L | EXTERNAL | | | | performed at [facility], [address] | | LAB | | | | [address], | | | | | | [place] [address] | | | | + + + + + + | ALT | 13Comment: Testing | 10 - 65 U/L | EXTERNAL | | | | performed at [facility], [address] | | LAB | | | | [address], | | | | | | [place] [address] | | | | + + + [...] | | | | | | [place] [address] | | | | + + + [...] | | | Fingerstick | performed at [facility];[address] | | LAB | | | | [address];[place], [place] | | | | | | [address] | | | | + + + [...] | | | Fingerstick | performed at [facility];[address] | | LAB | | | | [address];[place] | | | | | | [address] | | | | + + + [...] | | | to suboptimal images. MEASUREMENTS Presiding Steward: | | | KVW Authenticated by: Aleksandar [...] due to suboptimal images. MEASUREMENTS | | Presiding Steward: Valentinticated by: Aleksandar Pacheco Date/Time: 05-16-2016 20:59:22 [...] | |MEASUREMENTS | | | | | |Presiding Steward: KVW | |Authenticated by: Aleksandar Dotson | [...] | | | Fingerstick | performed at [facility];[address] | | LAB | | | | [address];[place], [place] | | | | | | [address] | | | | + + + [...] was also examined | | | with [employer]eg[employer] 3D software for evaluation of the cerebral [...] Conversion - 11/02/2018 6:55 AM PDT REAGAN [id number] years MaleCTA | | HEAD NECK W [...] The data set was also examined with [employer] 3D software for evaluation of the cerebral [...] [place] | | | | | | [address] | | | | + + + + + + | RED CELL | 4.77Comment: Testing | 4.20 - 5.70 | EXTERNAL | | | COUNT | performed at [facility], [address] | M/uL | LAB | | | | [address], | | | | | | [place] [address] | | | | + + + + + + | Hgb | 13.4Comment: Testing | 13.2 - 17.0 | EXTERNAL | | | | performed at [facility], [address] | g/dL | LAB | | | | [address], | | | | | | [place] [address] | | | | + + + + + + | Hematocrit, | 39.1Comment: Testing | 39.0 - 50.0 % | EXTERNAL | | | POC | performed at [facility], [address] | | LAB | | | | [address], | | | | | | [place] [address] | | | | + + + + + + | MCV | 82.0Comment: Testing | 80.0 - 100.0 fl | EXTERNAL | | | | performed at [facility], [address] | | LAB | | | | [address], | | | | | | [place] [address] | | | | + + + + + + | MCH | 28.0Comment: Testing | 27.0 - 34.0 pg | EXTERNAL | | | | performed at [facility], [address] | | LAB | | | | [address], | | | | | | [place] [address] | | | | + + + + + + | MCHC | 34.1Comment: Testing | 32.0 - 35.5 | EXTERNAL | | | | performed at [facility], [address] | g/dL | LAB | | | | [address], | | | | | | [place] [address] | | | | + + + + + + | RDW-CV | 42.9Comment: Testing | 37 - 53 fl | EXTERNAL | | | | performed at [facility], [address] | | LAB | | | | [address], | | | | | | [place] [address] | | | | + + + + + + | Platelet | 238Comment: Testing | 150 - 400 K/uL | EXTERNAL | | | Count | performed at [facility], [address] | | LAB | | | Plasma | [address], | | | | | | [place] [address] | | | | + + + + + + | MPV | 8.8Comment: Testing | fl | EXTERNAL | | | | performed at [facility], [address] | | LAB | | | | [address], | | | | | | [place] [address] | | | | + + + + + + | Differentia | AUTOMATEDComment: | | EXTERNAL | | | l Type | Testing performed at | | LAB | | | | [facility], [address], [place], [place] | | | | | | [address] | | | | + + + + + + | % Segmented | 68.92Comment: Testing | % | EXTERNAL | | | | performed at [facility], [address] | | LAB | | | Neutrophils | [address], | | | | | | [place] [address] | | | | + + + + + + | % | 18.94Comment: Testing | % | EXTERNAL | | | Lymphocytes | performed at [facility], [address] | | LAB | | | | [address], | | | | | | [place] [address] | | | | + + + + + + | % Monocytes | 10.32Comment: Testing | % | EXTERNAL | | | | performed at [facility], [address] | | LAB | | | | [address], | | | | | | [place] [address] | | | | + + + + + + | % | 1.25Comment: Testing | % | EXTERNAL | | | Eosinophils | performed at [facility], [address] | | LAB | | | | [address], | | | | | | [place] [address] | | | | + + + + + + | % Basophils | 0.57Comment: Testing | % | EXTERNAL | | | | performed at [facility], [address] | | LAB | | | | [address], | | | | | | [place] [address] | | | | + + + + + + | Absolute | 8.86 (H)Comment: Testing | 1.90 - 7.40 | EXTERNAL | | | Segmented | performed at [facility], [address] | LAB | | | [address] | [address], | | | | | | [place] [address] | | | | + + + + + + | Absolute | 2.44Comment: Testing | 1.00 - 3.90 | EXTERNAL | | | Lymphocytes | performed at [facility], [address] | LAB | | | | [address], | | | | | | [place] [address] | | | | + + + + + + | Absolute | 1.33 (H)Comment: Testing | 0.00 - 0.80 | EXTERNAL | | | Monocytes | performed at [facility], [address] | LAB | | | | [address], | | | | | | [place] [address] | | | | + + + + + + | Absolute | 0.16Comment: Testing | 0.00 - 0.50 | EXTERNAL | | | Eosinophils | performed at [facility], [address] | [address] | LAB | | | | [address], | | | | | | [place] [address] | | | | + + + + + + | Absolute | 0.07Comment: Testing | 0.00 - 0.10 | EXTERNAL | | | Basophils | performed at [facility], [address] | [address] | LAB | | | | [address], | | | | | | [place] [address] | | | | + + + [...] | | | Fingerstick | performed at [facility];[address] | | LAB | | | | [address] Jaram[address];[place] | | | | | | [address] | | | | + + + [...] | | | | | performed at [facility], [address] | | | | | | [address], | | | | | | [place] [address] | | | | + + + [...] | | | | | performed at [facility], [address] | | | | | | [address], | | | | | | [place] [address] | | | | + + + [...] | | | | | [place] [address] | | | | + + + + + + | K | 4.2Comment: SPECIMEN | 3.5 - 4.9 | EXTERNAL | | | | SLIGHTLY | mmol/L | LAB | | | | HEMOLYZEDTesting | | | | | | performed at [facility], [address] | | | | | | [address], | | | | | | [place] [address] | | | | + + + + + + | Cl | 104Comment: Testing | 99 - 109 mmol/L | EXTERNAL | | | | performed at [facility], [address] | | LAB | | | | [address], | | | | | | [place] [address] | | | | + + + + + + | CO2 | 25Comment: Testing | 23 - 32 mmol/L | EXTERNAL | | | | performed at [facility], [address] | | LAB | | | | [address], | | | | | | [place] [address] | | | | + + + + + + | Anion Gap | 14Comment: Testing | 5 - 20 mmol/L | EXTERNAL | | | | performed at [facility], [address] | | LAB | | | | [address], | | | | | | [place] [address] | | | | + + + [...] | | | | | [place] [address] | | | | + + + + + + | BUN | 9Comment: Testing | 8 - 25 mg/dL | EXTERNAL | | | | performed at [facility], [address] | | LAB | | | | [address], | | | | | | [place] [address] | | | | + + + + + + | Creatinine | 0.7Comment: SPECIMEN | 0.70 - 1.30 | EXTERNAL | | | | SLIGHTLY | mg/dL | LAB | | | | HEMOLYZEDTesting | | | | | | performed at [facility], [address] | | | | | | [address], | | | | | | [place] [address] | | | | + + + + + + | BUN/Creatin | 13Comment: Testing | | EXTERNAL | | | ine Ratio | performed at [facility], [address] | | LAB | | | | [address], | | | | | | [place] [address] | | | | + + + + + + | Calcium | 8.5Comment: Testing | 8.5 - 10.5 | EXTERNAL | | | | performed at [facility], [address] | mg/dL | LAB | | | | [address], | | | | | | [place] [address] | | | | + + + + + + | Protein, | 5.8 (L)Comment: Testing | 6.3 - 8.2 g/dL | EXTERNAL | | | Total | performed at [facility], [address] | | LAB | | | | [address], | | | | | | [place] [address] | | | | + + + + + + | Albumin | 2.8 (L)Comment: Testing | 3.3 - 4.8 g/dL | EXTERNAL | | | | performed at [facility], [address] | | LAB | | | | [address], | | | | | | [place] [address] | | | | + + + + + + | Globulin | 3.0Comment: Testing | 1.3 - 4.9 g/dL | EXTERNAL | | | | performed at [facility], [address] | | LAB | | | [address], | | | | | | [place] [address] | | | | + + + + + + | A/G Ratio | 0.9 (L)Comment: Testing | 1.0 - 2.4 | EXTERNAL | | | | performed at [facility], [address] | | LAB | | | | [address], | | | | | | [place] [address] | | | | + + + + + + | Bilirubin | 1.7 (H)Comment: SPECIMEN | 0.1 - 1.5 mg/dL | EXTERNAL | | | Total | SLIGHTLY | | LAB | | | | HEMOLYZEDTesting | | | | | | performed at [facility], [address] | | [address], | | | | | | [place] [address] | | | | + + + + + + | ALP, | 77Comment: Testing | 35 - 115 U/L | EXTERNAL | | | External | performed at [facility], [address] | | LAB | | | | [address], | | | | | | [place] [address] | | | | + + + + + + | AST | 18Comment: SPECIMEN | 10 - 45 U/L | EXTERNAL | | | | SLIGHTLY | | LAB | | | | HEMOLYZEDTesting | | | | | | performed at [facility], [address] | | | | | | [address], | | | | | | [place] [address] | | | | + + + + + + | ALT | 15Comment: SPECIMEN | 10 - 65 U/L | EXTERNAL | | | | SLIGHTLY | | LAB | | | | HEMOLYZEDTesting | | | | | | performed at [facility], [address] | | | | | | [address], | | | | | | [place] [address] | | | | + + + [...] | | | | | | [place] [address] | | | | + + + [...] | | | Fingerstick | performed at [facility];[address] | | LAB | | | | [address];[place] | | | | | | [address] | | | | + + + [...] | | | Fingerstick | performed at [facility];[address] | | LAB | | | | [address];[place], [place] | | | | | | [address] | | | | + + + [...] | | | | | [place] [address] | | | | + + + [...] | | | Fingerstick | performed at [facility];[address] | | LAB | | | | [address];[place] | | | | | | [address] | | | | + + + [...] brain without | | | gadolinium. 3-D bcng-ft-noflzo MR angiography was also performed to | [...] the brain without gadolinium. 3-D | | dswq-fb-gboadr MR angiography was also performed to the [...] | | | Fingerstick | performed at [facility];[address] | | LAB | | | | [address];[place], [place] | | | | | | [address] | | | | + + + [...] | | | Fingerstick | performed at [facility];[address] | | LAB | | | | [address];[place] | | | | | | [address] | | | | + + + [...] | | | Fingerstick | performed at [facility];[address] | | LAB | | | | [address];[place] | | | | | | [address] | | | | + + + [...] | | | Fingerstick | performed at [facility];[address] | | LAB | | | | [address];[place] | | | | | | [address] | | | | + + + [...] K/uL | LAB | | | | [facility], [address] [facility] | | | | | | [place] | | | | | | [address] | | | | + + + + + + | RED CELL | 5.01Comment: Testing | 4.20 - 5.70 | EXTERNAL | | | COUNT | performed at [facility], [address] | M/uL | LAB | | | | [address], | | | | | | [place] [address] | | | | + + + + + + | Hgb | 14.0Comment: Testing | 13.2 - 17.0 | EXTERNAL | | | | performed at [facility], [address] | g/dL | LAB | | | | [address], | | | | | | [place] [address] | | | | + + + + + + | Hematocrit, | 40.8Comment: Testing | 39.0 - 50.0 % | EXTERNAL | | | POC | performed at [facility], [address] | | LAB | | | | [address], | | | | | | [place] [address] | | | | + + + + + + | MCV | 81.5Comment: Testing | 80.0 - 100.0 fl | EXTERNAL | | | | performed at [facility], [address] | | LAB | | | | [address], | | | | | | [place] [address] | | | | + + + + + + | MCH | 27.9Comment: Testing | 27.0 - 34.0 pg | EXTERNAL | | | | performed at [facility], [address] | | LAB | | | | [address], | | | | | | [place] [address] | | | | + + + + + + | MCHC | 34.2Comment: Testing | 32.0 - 35.5 | EXTERNAL | | | | performed at [facility], [address] | g/dL | LAB | | | | [address], | | | | | | [place] [address] | | | | + + + + + + | RDW-CV | 42.0Comment: Testing | 37 - 53 fl | EXTERNAL | | | | performed at [facility], [address] | | LAB | | | | [address], | | | | | | [place] [address] | | | | + + + + + + | Platelet | 257Comment: Testing | 150 - 400 K/uL | EXTERNAL | | | Count | performed at [facility], [address] | | LAB | | | Plasma | [address], | | | | | | [place] [address] | | | | + + + + + + | MPV | 8.4Comment: Testing | fl | EXTERNAL | | | | performed at [facility], [address] | | LAB | | | | [address], | | | | | | [place] [address] | | | | + + + + + + | Differentia | AUTOMATEDComment: | | EXTERNAL | | | l Type | Testing performed at | | LAB | | | | [facility], [address] | | | | | | [place] | | | | | | [address] | | | | + + + + + + | % Segmented | 72.88Comment: Testing | % | EXTERNAL | | | | performed at [facility], [address] | | LAB | | | Neutrophils | [address], | | | | | | [place] [address] | | | | + + + + + + | % | 17.64Comment: Testing | % | EXTERNAL | | | Lymphocytes | performed at [facility], [address] | | LAB | | | | [address], | | | | | | [place] [address] | | | | + + + + + + | % Monocytes | 8.16Comment: Testing | % | EXTERNAL | | | | performed at [facility], [address] | | LAB | | | | [address], | | | | | | [place] [address] | | | | + + + + + + | % | 1.06Comment: Testing | % | EXTERNAL | | | Eosinophils | performed at [facility], [address] | | LAB | | | | [address], | | | | | | [place] [address] | | | | + + + + + + | % Basophils | 0.26Comment: Testing | % | EXTERNAL | | | | performed at [facility], [address] | | LAB | | | | [address], | | | | | | [place] [address] | | | | + + + + + + | Absolute | 10.84 (H)Comment: | 1.90 - 7.40 | EXTERNAL | | | Segmented | Testing performed at | K/uL | LAB | | | Neutrophils | [facility], [address] | | | | | | [place] | | | | | | [address] | | | | + + + + + + | Absolute | 2.62Comment: Testing | 1.00 - 3.90 | EXTERNAL | | | Lymphocytes | performed at [facility], [address] | K/uL | LAB | | | | [address], | | | | | | [place] [address] | | | | + + + + + + | Absolute | 1.21 (H)Comment: Testing | 0.00 - 0.80 | EXTERNAL | | | Monocytes | performed at [facility], [address] | K/uL | LAB | | | | [address], | | | | | | [place] [address] | | | | + + + + + + | Absolute | 0.16Comment: Testing | 0.00 - 0.50 | EXTERNAL | | | Eosinophils | performed at [facility], [address] | K/uL | LAB | | | | [address], | | | | | | [place] [address] | | | | + + + + + + | Absolute | 0.04Comment: Testing | 0.00 - 0.10 | EXTERNAL | | | Basophils | performed at [facility], [address] | K/uL | LAB | | | | [address], | | | | | | [place] [address] | | | | + + + [...] EXTERNAL | | | | performed at [facility], [address] | | LAB | | | | [address], | | | | | | [place] [address] | | | | + + + [...] EXTERNAL | | | | performed at [facility], [address] | | LAB | | | | [address], | | | | | | [place] [address] | | | | + + + [...] | EXTERNAL | | | A1c | [place] [employer] | | LAB | | | [...] | | | | | performed at [facility], [address] | | | | | [address], | | | | | | [place] [address] | | | | + + + [...] | | | | | performed at [facility], [address] | | | | | | [address], | | | | | | [place] [address] | | | | + + + [...] | | | | | [place] [address] | | | | + + + + + + | Triglycerid | 152 (H)Comment: Testing | mg/dL | EXTERNAL | | | es | performed at [facility], [address] | | LAB | | | | [address], | | | | | | [place] [address] | | | | + + + + + + | HDL | 31 (L)Comment: Testing | mg/dL | EXTERNAL | | | | performed at [facility], [address] | | LAB | | | | [address], | | | | | | [place] [address] | | | | + + + + + + | LDL | 47Comment: Testing | mg/dL | EXTERNAL | | | Cholesterol | performed at [facility], [address] | | LAB | | | , | [address], | | | | | Calculated, | [place] [address] | | | | | External | [...] | | | | | [place] [address] | | | | + + + + + + | K | 3.3 (L)Comment: Testing | 3.5 - 4.9 | EXTERNAL | | | | performed at [facility], [address] | mmol/L | LAB | | | [address], | | | | | | [place] [address] | | | | + + + + + + | Cl | 104Comment: Testing | 99 - 109 mmol/L | EXTERNAL | | | | performed at [facility], [address] | | LAB | | | | [address], | | | | | | [place] [address] | | | | + + + + + + | CO2 | 25Comment: Testing | 23 - 32 mmol/L | EXTERNAL | | | | performed at [facility], [address] | | LAB | | | | [address], | | | | | | [place] [address] | | | | + + + + + + | Anion Gap | 12Comment: Testing | 5 - 20 mmol/L | EXTERNAL | | | | performed at [facility], [address] | | LAB | | | | [address], | | | | | | [place] [address] | | | | + + + + + + | Glucose, | 125 (H)Comment: Testing | 65 - 99 mg/dL | EXTERNAL | | | Fasting | performed at [facility], [address] | | LAB | | | | [address], | | | | | | [place] [address] | | | | + + + + + + | BUN | 11Comment: Testing | 8 - 25 mg/dL | EXTERNAL | | | | performed at [facility], [address] | | LAB | | | | [address], | | | | | | [place] [address] | | | | + + + + + + | Creatinine | 0.7Comment: Testing | 0.70 - 1.30 | EXTERNAL | | | | performed at [facility], [address] | mg/dL | LAB | | | | [address], | | | | | | [place] [address] | | | | + + + + + + | BUN/Creatin | 16Comment: Testing | | EXTERNAL | | | ine Ratio | performed at [facility], [address] | | LAB | | | | [address], | | | | | | [place] [address] | | | | + + + + + + | Calcium | 8.3 (L)Comment: Testing | 8.5 - 10.5 | EXTERNAL | | | | performed at [facility], [address] | mg/dL | LAB | | | | [address], | | | | | | [place] [address] | | | | + + + [...] [address], | | | | | | [place] [address] | | | | + + + [...] | | | Fingerstick | performed at [facility];[address] | | LAB | | | | [address];[place] | | | | | | [address] | | | | + + + [...] | | | Fingerstick | performed at [facility];[address] | | LAB | | | | [address];[place] | | | | | | [address] | | | | + + + [...] | | | Fingerstick | performed at [facility];[address] | | LAB | | | | [address];[place] | | | | | | [address] | | | | + + + [...] | | | Fingerstick | performed at [facility];[address] | | LAB | | | | [address];[place] | | | | | | [address] | | | | + + + [...] | | | Fingerstick | performed at [facility];[address] | | LAB | | | | [address];[place], [place] | | | | | | [address] | | | | + + + [...] | | | Fingerstick | performed at [facility];[address] | | LAB | | | | [address];[place], [place] | | | | | | [address] | | | | + + + [...] | | | Fingerstick | performed at [facility];[address] | | LAB | | | [address];[place], [place] | | | | | | [address] | | | | + + + [...] | | | Fingerstick | performed at [facility];8 | | LAB | | | | [address];[place] | | | | | | [address] | | | | + + + [...] | | | Fingerstick | performed at [facility];[address] | | LAB | | | | [address];[place] | | | | | | [address] | | | | + + + [...] | | | Fingerstick | performed at [facility];[address] | | LAB | | | | [address];[place] | | | | | | [address] | | | | + + + [...] | | | Fingerstick | performed at [facility];[address] | | LAB | | | | [address];[place] | | | | | | [address] | | | | + + + [...] | | | Fingerstick | performed at [facility];[address] | | LAB | | | | [address];[place] | | | | | | [address] | | | | + + + [...] | | | Fingerstick | performed at [facility];[address] | | LAB | | | | [address];[place], [place] | | | | | | [address] | | | | + + + [...] | | | Fingerstick | performed at [facility];[address] | | LAB | | | | [address];[place] | | | | | | [address] | | | | + + + [...] | | | Fingerstick | performed at [facility];8 | | LAB | | | | [address];[place] | | | | | | [address] | | | | + + + [...] | | | Fingerstick | performed at [facility];[address] | | LAB | | | | [address];[place], [place] | | | | | | [address] | | | | + + + [...] | | Jefe: 0.48 m/s TV Dec Dauphin: 3.62 m/s2 TV Dec Time: 136.62 | | | ms TV E Jefe: 0.49 m/s TV E/A Ratio: 1.02 Presiding Steward: TRINY | | | Authenticated by: Aleksandar [...] | Index (A-L): 25.78 ml/m2LAAs A2C: 20.06 [id number] A-L A2C: 56.80 mlLAESV MOD A2C: | | 53.98 mlLALs A2C: 6.01 cmLAAs A4C: 18.67 [id number] A-L A4C: 45.70 mlLAESV MOD A4C: | | 43.69 mlLALs A4C: 6.47 cmHR: 94.31 BPMAV maxP.45 mmHgAV meanP.54 | | mmHgAV Vmax: 1.61 m/Abilio Vmean: 1.22 m/Abilio VTI: 27.30 cmAVA Vmax: 2.68 cm2AVA | | (VTI): 2.69 [id number] Vmax: 0.00 cm2/m2AVAI (VTI): 0.00 cm2/m2LVCI Dopp: 3.08 | | l/eteb0IFPV Dopp: 6.31 l/minHR: 85.80 BPMLVOT maxP.48 mmHgLVOT meanP.11 | | mmHgLVSI Dopp: 35.92 ml/m2LVSV Dopp: 73.65 mlLVOT Vmax: 1.36 m/sLVOT Vmean: 0.96 | | m/sLVOT VTI: 23.22 cmMCO: 392.13 msMV A Jefe: 1.50 m/sMV DecT: 213.25 msMV E | | Jefe: 0.88 m/sMV E/A Ratio: 0.59MV PHT: 74.39 msMVA By PHT: 2.95 so6Lktebh e': | | 0.05 m/sSeptal E/e': 14.80RAP: 8 mmHgTV A Jefe: 0.48 m/sTV Dec Dauphin: 3.62 m/s2TV | | Dec Time: 136.62 msTV E Jefe: 0.49 m/sTV E/A Ratio: 1.02 Presiding Steward: | | GDAuthenticated by: Aleksandar HernandezraReport Date/Time: [...] A Jefe: 0.48 m/s | |TV Dec Dauphin: 3.62 m/s2 | |TV Dec Time: 136.62 ms | |TV E Jefe: 0.49 m/s | |TV E/A Ratio: 1.02 | | | |Presiding Steward: TRINY | |Authenticated by: Aleksandar Dotson | [...] EXTERNAL LAB | | Testing performed at [facility];[address] [place] [address];[place] [address] MRSA PCR | | | NEGATIVE Testing performed at | | | [address];[place] [address] | | + + + + +---------+ [...] | | | Fingerstick | performed at [facility];[address] | | LAB | | | | [address];[place] | | | | | | [address] | | | | + + + [...] + + | Historically converted procedure from [facility] environment | EXTERNAL LAB | + + [...] | Ischemic stroke diagnosed during current admission ([facility]) | + + | Type 2 diabetes mellitus with diabetic neuropathy, with long-term current use of | | insulin ([facility]) | + + | Moderate protein-calorie malnutrition ([facility]) Malnutrition of moderate degree | + + | Gastroesophageal reflux disease without esophagitis Esophageal reflux | + + | Hypokalemia Hypopotassemia | + + | Essential hypertension, benign | + + documented in this encounter
--- OUTSIDE RECORDS SUMMARY | ~2019-04-05 | XMS | Encounter Summary ---
Demographics + + + | Address | [address] | | | [place] [address] | + + + | Home Phone [...] Organization | [facility] | | | and [place] | + + + | Address | Unknown | + + + | Phone | Unavailable | + + + Support + + + + + | Name | Relationship | Address | Phone | + + + + + | Jessica Shepard | ECON | [address] | | | | | [place] | | | | | [address] | | + + + + + | Bel Solis | ECON | Unknown | | + + + + + | José Shepard | ECON | [place] | | | | | [address] | | + + + + + | Jessica Shepard | ECON | Unknown | | + + + + + Care Team Providers + +------+ + | Care Lining Scrubber Name | Role | Phone | + +------+ + | Dian Lr NP | PCP | | + +------+ + Encounter Details +--------+ + + + + | Date | Type | Department | Care Team | Description | +--------+ + + + + | 11/26/ | Hospital | [facility] | Toby Ortiz | | | 2018 | Encounter | MED CTR XRAY [address] | [address] | | | | | [place] | [facility] | | | | | [place] [address] | [place] [address] | | | | | [phone] | [phone] | | | | | | | [...]
--- OUTSIDE RECORDS SUMMARY | ~2019-04-05 | XMS | Encounter Summary ---
Demographics + + + | Address | [address] | | | [place] [address] | + + + | Home Phone [...] | Organization | [facility] | | | and [place] | + + + | Address | Unknown | + + + | Phone | Unavailable | + + + Support + + + + + | Name | Relationship | Address | Phone | + + + + + | Jessica Shepard | ECON | [address] | | | | | [place] | | | | | [address] | | + + + + + | Bel Solis | ECON | Unknown | | + + + + + | José Shepard | ECON | [place] | | | | | [address] | | + + + + + | Jessica Shepard | ECON | Unknown | | + + + + + Care Team Providers + +------+ + | Care Digital Ad Trafficker Name | Role | Phone | + +------+ + | Dian Lr NP | PCP | | + +------+ + Encounter Details +--------+ + + + + | Date | Type | Department | Care Team | Description | +--------+ + + + + | 01/03/ | Lab | [facility] | Toby Ortiz | Other acute | | 2018 | Requisition | MED CTR LABORATORY | [address] | osteomyelitis, right | | | | [address] [place] | [facility] | ankle and foot | | | | [place], [place] | [place] [address] | ([facility]); Diabetes | | | | [address] | [phone] | mellitus due to | | | | [phone] | | underlying condition | | | | | | with foot ulcer | | | | | | (CODE) ([facility]); 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 | | | | | ([facility]) Diabetes | | | | | | mellitus due to | | | | | | underlying condition | | | | | | with foot ulcer | | | | | | (CODE) ([facility]) Other | | | | | | prison (current) | | | | | | drug therapy | | + +--------+ + + + | CBC WITH | Routin | 01/03/2018 | Other acute | Results for this | | DIFFERENTIAL | e | 9:45 AM | osteomyelitis, right | procedure are in the | | | | PDT | ankle and foot | results section. | | | | | ([facility]) Diabetes | | | | | | mellitus due to | | | | | | underlying condition | | | | | | with foot ulcer | | | | | | (CODE) ([facility]) Other | | | | | | prison (current) | | | | | | drug therapy | | + +--------+ + + + | C-REACTIVE PROTEIN | Routin | 01/03/2018 | Other acute | Results for this | | | e | 9:45 AM | osteomyelitis, right | procedure are in the | | | | PDT | ankle and foot | results section. 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 | [address] | [place] | [phone] | | [facility] | | [address] | | | - LABORATORY | | [...] + | [address] | 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
--- OUTSIDE RECORDS SUMMARY | ~2019-04-05 | XMS | Encounter Summary ---
Demographics + + + | Address | [address] | | | [place] [address] | + + + | Home Phone [...] + | Organization | [facility] | | | and [place] | + + + | Address | Unknown | + + + | Phone | Unavailable | + + + Support + + + + + | Name | Relationship | Address | Phone | + + + + + | Jessica Shepard | ECON | [address] | | | | | [place] | | | | | [address] | | + + + + + | Bel Solis | ECON | Unknown | | + + + + + | José Shepard | ECON | [place] | | | | | [address] | | + + + + + | Jessica Shepard | ECON | Unknown | | + + + + + Care Team Providers + +------+ + | Care Bilingual Patient Support Caseworker Name | Role | Phone | + +------+ + | Dian Lr NP | PCP | | + +------+ + Encounter Details +--------+ + + + + | Date | Type | Department | Care Team | Description | +--------+ + + + + | 07/31/ | Orders Only | [facility] | Conversion | | | 2019 | | INFECTIOUS DISEASE | Transaction, | | | | | [address] | Provider Unknown | | | | | [place] | [phone] | | | | | [address] | | | | | | [phone] | | | +--------+ + + + [...]
--- OUTSIDE RECORDS SUMMARY | ~2019-04-05 | XMS | Encounter Summary ---
Demographics + + + | Address | [address] | | | [place] [address] | + + + | Home Phone | | + + + | Preferred Language | Unknown | + + + | Marital Status | | + + + | Islam Affiliation | 1076 | + + + | Race | Unknown | + + + | Ethnic Group | Unknown | + + + Author + + + | Author | [facility] | | | and [place] | + + + | Organization | [facility] | | | and [place] | + + + | Address | Unknown | + + + | Phone | Unavailable | + + + Support + + + + + | Name | Relationship | Address | Phone | + + + + + | Jessica Shepard | ECON | [address] | | | | | [place] | | | | | [address] | | + + + + + | Bel Solis | ECON | Unknown | | + + + + + | José Shepard | ECON | [place] | | | | | [address] | | + + + + + | Jessica Shepard | ECON | Unknown | | + + + + + Care Team Providers + +------+ + | Care Bunk Assembler Name | Role | Phone | + +------+ + PCP | Unavailable | + +------+ + Encounter Details +--------+ + + + + | Date | Type | Department | Care Team | Description | +--------+ + + + + | 02/22/ | Hospital | [facility] | | | | 2000 | Encounter | MED CTR XRAY [address] | | | | | | [address] | | | | | | [place] [address] | | | | | | [phone] | | | +--------+ + + + [...]
--- OUTSIDE RECORDS SUMMARY | ~2019-04-05 | XMS | Encounter Summary ---
Demographics + + + | Address | [address] | | | [place] [address] | + + + | Home Phone [...] + | Organization | [facility] | | | and [place] | + + + | Address | Unknown | + + + | Phone | Unavailable | + + + Support + + + + + | Name | Relationship | Address | Phone | + + + + + | Jessica Shepard | ECON | [address] | | | | | [place] | | | | | [address] | | + + + + + | Bel Solis | ECON | Unknown | | + + + + + | José Shepard | ECON | [place] | | | | | [address] | | + + + + + | Jessica Shepard | ECON | Unknown | | + + + + + Care Team Providers + +------+ + | Care R D Intern Name | Role | Phone | + +------+ + PCP | Unavailable | + +------+ + Encounter Details +--------+ + + + + | Date | Type | Department | Care Team | Description | +--------+ + + + + | 12/27/ | Hospital | [facility] | | | | 2006 | Encounter | MED CTR XRAY [address] | | | | | | [address] | | | | | | [place] [address] | | | | | | [phone] | | | +--------+ + + + [...]
--- OUTSIDE RECORDS SUMMARY | ~2019-04-05 | XMS | Encounter Summary ---
Demographics + + + | Address | [address] | | | [place] [address] | + + + | Home Phone [...] | Organization | [facility] | | | and [place] | + + + | Address | Unknown | + + + | Phone | Unavailable | + + + Support + + + + + | Name | Relationship | Address | Phone | + + + + + | Jessica Shepard | ECON | [address] | | | | | [place] | | | | | [address] | | + + + + + | Bel Solis | ECON | Unknown | | + + + + + | José Shepard | ECON | [place] | | | | | [address] | | + + + + + | Jessica Shepard | ECON | Unknown | | + + + + + Care Team Providers + +------+ + | Care 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
--- OUTSIDE RECORDS SUMMARY | ~2019-04-05 | XMS | Encounter Summary ---
Demographics + + + | Address | [address] | | | [place] [address] | + + + | Home Phone | | + + + | Preferred Language | Unknown | + + + | Marital Status | | + + + | Catholic Affiliation | 1076 | + + + | Race | Unknown | + + + | Ethnic Group | Unknown | + + + Author + + + | Author | [facility] | | | and [place] | + + + | Organization | [facility] | | | and [place] | + + + | Address | Unknown | + + + | Phone | Unavailable | + + + Support + + + + + | Name | Relationship | Address | Phone | + + + + + | Jessica Shepard | ECON | [address] | | | | | [place] | | | | | [address] | | + + + + + | Bel Solis | ECON | Unknown | | + + + + + | José Shepard | ECON | [place] | | | | | [address] | | + + + + + | Jessica Shepard | ECON | Unknown | | + + + + + Care Team Providers + +------+ + | Care Stopboard Assembler Name | Role | Phone | + +------+ + | Dian Lr NP | PCP | | + +------+ + Encounter Details +--------+ + + + + | Date | Type | Department | Care Team | Description | +--------+ + + + + | 05/14/ | Hospital | [facility] | Conversion | Pain | | 2017 | Encounter | [address] | Transaction, | | | | | [address] | Provider Unknown | | | | | [place] | [phone] | | | | | [address] | | | | | | [phone] | | | +--------+ + + + [...]
--- OUTSIDE RECORDS SUMMARY | ~2019-04-05 | XMS | Encounter Summary ---
Demographics + + + | Address | [address] | | | [place] [address] | + + + | Home Phone [...] | Organization | [facility] | | | and [place] | + + + | Address | Unknown | + + + | Phone | Unavailable | + + + Support + + + + + | Name | Relationship | Address | Phone | + + + + + | Jessica Shepard | ECON | [address] | | | | | [place] | | | | | [address] | | + + + + + | Bel Solis | ECON | Unknown | | + + + + + | José Shepard | ECON | [place] | | | | | [address] | | + + + + + | Jessica Shepard | ECON | Unknown | | + + + + + Care Team Providers + +------+ + | Care Open Die Inspector Name | Role | Phone | + +------+ + | Dian Lr BELT LOOP MACHINE OPERATOR | PCP | | + +------+ + Encounter Details +--------+ + + + + | Date | Type | Department | Care Team | Description | +--------+ + + + + | 11/26/ | Hospital | [facility] | Toby Ortiz | Leonel osteomyelitis | | 2018 | Encounter | MED CTR OP INFUSION | MD [address] | of right foot (HCC) | | | | [address] | [facility] | (Primary Dx) | | | | [place] [address] | [place] [address] | | | | | [address] | [phone] | | | | | [phone] | | | +--------+ + + + [...]
--- OUTSIDE RECORDS SUMMARY | ~2019-04-05 | XMS | Encounter Summary ---
Demographics + + + | Address | [address] | | | [place] [address] | + + + | Home Phone [...] | Organization | [facility] | | | and [place] | + + + | Address | Unknown | + + + | Phone | Unavailable | + + + Support + + + + + | Name | Relationship | Address | Phone | + + + + + | Jessica Shepard | ECON | [address] | | | | | [place] | | | | | [address] | | + + + + + | Bel Solis | ECON | Unknown | | + + + + + | José Shepard | ECON | [place] | | | | | [address] | | + + + + + | Jessica Shepard | ECON | Unknown | | + + + + + Care Team Providers + +------+ + | Care Cafe Team Member Name | Role | Phone | + +------+ + | Dian Lr NP | PCP | | + +------+ + Encounter Details +--------+ + + + + | Date | Type | Department | Care Team | Description | +--------+ + + + + | 10/16/ | Orders Only | [facility] | Provider, | Other acute | | 2019 | | SYSTEM GENERIC OP | [address] | osteomyelitis, right | | | | [address] | [address] | ankle and foot | | | | [address] [place], [place] | [place] [address] | ([facility]) | | | | [address] | | | | | | [phone] | | | +--------+ + + + [...] Other acute osteomyelitis, right ankle and foot ([facility]) | + + documented in this encounter"
--- OUTSIDE RECORDS SUMMARY | ~2019-04-05 | XMS | Encounter Summary ---
Demographics + + + | Address | [address] | | | [place] [address] | + + + | Home Phone [...] [facility] | [...] [place] | | | | | [address] | | + + + + + | Bel Solis | ECON | Unknown | | + + + + + | José Shepard | ECON | [place] | | | | | [address] | | + + + + + | Jessica Shepard | ECON | Unknown | | + + + + + Care Team Providers + +------+ + | Care Route Sales Representative Name | Role | Phone | + +------+ + PCP | Unavailable | + +------+ + Encounter Details +--------+ + + + + | Date | Type | Department | Care Team | Description | +--------+ + + + + | 12/08/ | Hospital | [facility] | | | | 1999 | Encounter | MED CTR XRAY [address] | | | | | | [address] | | | | | | [place] [address] | | | | | | [phone] | | | +--------+ + + + [...]
--- OUTSIDE RECORDS SUMMARY | ~2019-04-05 | XMS | Encounter Summary ---
Demographics + + + | Address | [address] | | | [place] [address] | + + + | Home Phone [...] Organization | [facility] | | | and [place] | + + + | Address | Unknown | + + + | Phone | Unavailable | + + + Support + + + + + | Name | Relationship | Address | Phone | + + + + + | Jessica Shepard | ECON | [address] | | | | | [place] | | | | | [address] | | + + + + + | Bel Solis | ECON | Unknown | | + + + + + | José Shepard | ECON | [place] | | | | | [address] | | + + + + + | Jessica Shepard | ECON | Unknown | | + + + + + Care Team Providers + +------+ + | Care Investment Associate Name | Role | Phone | + +------+ + PCP | Unavailable | + +------+ + Encounter Details +--------+ + + + + | Date | Type | Department | Care Team | Description | +--------+ + + + + | 09/14/ | Hospital | [facility] | | | | 2001 | Encounter | MED CTR XRAY [address] | | | | | | [address] | | | | | | [place] [address] | | | | | | [phone] | | | +--------+ + + + [...]
--- OUTSIDE RECORDS SUMMARY | ~2019-04-05 | XMS | Encounter Summary ---
Demographics + + + | Address | [address] | | | [place] [address] | + + + | Home Phone [...] + | Organization | [facility] | | | and [place] | + + + | Address | Unknown | + + + | Phone | Unavailable | + + + Support + + + + + | Name | Relationship | Address | Phone | + + + + + | Jessica Shepard | ECON | [address] | | | | | [place] | | | | | [address] | | + + + + + | Bel Solis | ECON | Unknown | | + + + + + | José Shepard | ECON | [place] | | | | | [address] | | + + + + + | Jessica Shepard | ECON | Unknown | | + + + + + Care Team Providers + +------+ + | Care Tubing Drier Name | Role | Phone | + [...] + + | 11/19/ | Hospital | [facility] | Jurgen Casiano | initial | | 2018 - | Encounter | [facility] | MD Shayne [address] | encounter (Primary | | | | [address] [place] | [address] [place] | Dx); Fever, | | 11/25/ | | [place] [address] | [place] [address] | unspecified fever | | 2018 | | [phone] | [phone] | cause; Pneumonia due | | | | | | to infectious | | | | | Gray Perea MD | organism, | | | | | [address] | unspecified | | | | | [place], [place] | laterality, | | | | | [address] | unspecified part of | | | | | | lung; Sepsis, due to | | | | | Mil Sandoval MD | unspecified | | | | | [address] | organism (HCC); | | | | | [place], [place] | Insulin dependent | | | | | [address] | diabetes mellitus | | | | [...] was used during the case. [facility] lower extremity was then scrubbed, prepped and [...] culture 11/19 10,000 mixed gr am positive salvaodr -Wound culture 11/19 enterobacter aerogenes, MSSA, tissue [...] -PT/OT ordered Code Status: Full Code Disposition: [facility] Discharge Condition: Stable, very deconditioned and weak at baseline Pleasant, no distress RRR, no m/r/g CTA bilaterally Soft, obese, NT Ext WWP, right foot ulcer with deep wound, slight purulent drainage Contact information for after-discharge care Placement Destination [facility] . Specialty: [facility] Facility Contact information: [address] [place] [address] Discharge Medications New Medications Details acetaminophen [...] by: Justin Reyna MD, 11/25/2017 13:01 [facility] documented in this encounter Medications at [...] might be different f rom the original. [facility] PMG Hospitalist Progress Note Reagan Shepard [...] pantoprazole Mechanical fall -PT/OT ordered Disposition : [facility] as soon as 11/25 Prophylaxis [...] as outlined above. Justin Reyna 11/24/2017 18:16 [facility] Sang Duff MD - 11/24/2017 1:59 PM PDTWe are evaluating the patient for further medical rehabilitatio n services. He does not qualify per CMS guidelines for full inpatient rehab . I recommend he be transferred to SNF for further skilled therapies once he is cleared acute ly. Justin Rodriguez MD - 11/23/2017 2:24 PM PDT [facility] PMG Hospitalist Progress Note Reagan Shepard [...] as outlined above. Justin Reyna 11/23/2017 14:24 [facility] ornia, Simone Voss DPM - 11/23/2017 1:58 PM PDT Foot & Ankle Surgery Progress Note Simone Aceves DPM Reagan Shepard Age/Gender 72 y.o. male Location [facility] Attending Mil Sandoval MD Hosp [...] Value Units Date/Time Culture, Wound, Smear, w/Anaerobe [[id number]] Collected: 11/21/171207 Order Status: Sent Lab Status: In process Updated: 11/21/17 125 Specimen: Tissue from Toe, Fifth/Small, Right Narrative: The following orders were created for panel order Culture, Wound, Smear, w/Anaerobe. Procedure Abnormality Status --------- ------ Culture, Wound, Smear[[id number]] In process Culture, Anaerobic[[id number]] In process Please view results for these tests on the individual orders. Culture, Wound, Smear [[id number]] Collected: 11/21/171207 Order Status: Sent Lab Status: In process Updated: 11/21/17 125 Specimen: Tissue from Toe, Fifth/Small, Right Culture, Anaerobic [[id number]] Collected: 11/21/171207 Order Status: Sent Lab Status: [...] Simone Aceves DPM 13:58; 11/23/2017 Irasema Dominguez, Pulley Man - 11/23/2017 9:43 AM PDT PHARMACY SERVICES: [...] directions X Pharmacy list names: [facility] X [employer] insurance reported information X [...] Prior to Admission Sig: Patient taking differently CLIENT SUPPORT ASSOCIATE as: Hydrocodone-acetaminophen 10-325 mg Take one tablet by mouth four times daily as needed fo r pain Patient taking 1 tablet three times daily as a scheduled dose Best possible CLIENT SUPPORT ASSOCIATE medication list after pharmacy review: PT REPORTED [...] performed and electronically signed by Blanquita Bertrand, Molding Utility Worker 11/22/2017 8:38 Electronically signed by: Irasema Moyer, Pulley Man 11/23/2017 9:43 Justin Rodriguez MD - 11/22/2017 5:22 PM PDT [facility] PMG Hospitalist Progress Note Reagan Shepard [...] as outlined above. Justin Reyna 11/22/2017 17:40 [facility] anielle Guillermo, Political Theory Professor - 11/22/2017 2:13 PM PDTFormatting of this [...] Value Units Date/Time Culture, Wound, Smear, w/Anaerobe [[id number]] Collected: 11/21/17 1208 Order Status: Sent Lab Status: In process Updated: 11/21/17 1250 Specimen: Tissue from Toe, Fifth/Small, Right Narrative: The following orders were created for panel order Culture, Wound, Smear, w/Anaerobe. Procedure Abnormality Status --------- ------ Culture, Wound, Smear[[id number]] Preliminary result Culture, Anaerobic[[id number]] In process Please view results for these tests on the individual orders. Culture, Wound, Smear [[id number]] Collected: 11/21/17 1208 Order Status: Completed Lab Status: Preliminary result Updated: 11/22/17 1021 Specimen: Tissue from Toe, Fifth/Small, Right Culture 2+ Lactose Fermenting Gram Negative Bacilli Comment: Identification and susceptibility to follow. Gram Stain Result 2+ White Blood Cells 1+ Epithelial cells 2+ Gram negative rods Culture, Anaerobic [[id number]] Collected: 11/21/17 1208 Order Status: Sent Lab Status: In process Updated: 11/21/17 1250 Specimen: Tissue from Toe, Fifth/Small, Right Respiratory Virus Panel, NAAT [[id number]] Collected: 11/20/17 1257 Order Status: Completed Lab [...] pneumoniae DNA Not Detected Narrative: Performed at: [address] [place] [id number] Crm Campaign Manager: Jurgen Costa MD, Phone: [phone] Culture, Wound, Smear [[id number]] (Susceptibility) Collected: 11/20/17 0825 Order Status: Completed [...] Sulfamethoxazole <=20 ug/mL Sensitive Culture, Wound, Smear [[id number]] (Susceptibility) Collected: 11/19/172030 Order Status: Completed Lab [...] no longer reported. Culture, Respiratory, Lower, Smear [[id number]] Order Status: Sent Lab Status: No result Specimen: Body Fluid from Sputum, Expectorated Culture, Wound, Smear [[id number]] Order Status: Canceled Lab Status: No result Specimen: Tissue from Leg, Left Culture, Blood [[id number]] (Normal) Collected: 11/19/17 1537 Order Status: Completed Lab Status: Preliminary result Updated: 11/20/17 0351 Specimen: Blood from Peripheral Blood Culture No growth: Monitored continually by instrument for 5 days Culture, Blood [[id number]] (Normal) Collected: 11/19/17 1506 Order Status: Completed Lab Status: Preliminary result Updated: 11/20/17 0321 Specimen: Blood from Peripheral Blood Culture No growth: Monitored continually by instrument for 5 days Culture, Urine [[id number]] Collected: 11/19/17 1416 Order Status: Completed Lab [...] Monitoring Protocol Electronically signed by: Danielle Guillermo, Political Theory Professor 11/22/2017 14:13 Associated attestation - Luther Hampton, [...] Reagan Shepard Age/Gender 72 y.o. male Location [facility] Attending Mil Sandoval MD Hosp Day # 3 PCP Dina Lr NP Date of Surgery: 11/21/17 Post [...] Value Units Date/Time Culture, Wound, Smear, w/Anaerobe [[id number]] Collected: 11/21/17 1208 Order Status: Sent Lab Status: In process Updated: 11/21/17 1250 Specimen: Tissue from Toe, Fifth/Small, Right Narrative: The following orders were created for panel order Culture, Wound, Smear, w/Anaerobe. Procedure Abnormality Status --------- ------ Culture, Wound, Smear[[id number]] In process Culture, Anaerobic[[id number]] In process Please view results for these tests on the individual orders. Culture, Wound, Smear [[id number]] Collected: 11/21/17 1208 Order Status: Sent Lab Status: In process Updated: 11/21/17 1250 Specimen: Tissue from Toe, Fifth/Small, Right Culture, Anaerobic [[id number]] Collected: 11/21/17 1208 Order Status: Sent Lab [...] Value Units Date/Time Culture, Wound, Smear, w/Anaerobe [[id number]] Collected: 11/21/17 120 Order Status: Sent Lab Status: In process Updated: 11/21/17 1250 Specimen: Tissue from Toe, Fifth/Small, Right Narrative: The following orders were created for panel order Culture, Wound, Smear, w/Anaerobe. Procedure Abnormality Status --------- ------ Culture, Wound, Smear[[id number]] In process Culture, Anaerobic[[id number]] In process Please view results for these tests on the individual orders. Culture, Wound, Smear [[id number]] Collected: 11/21/17 120 Order Status: Sent Lab Status: In process Updated: 11/21/17 1250 Specimen: Tissue from Toe, Fifth/Small, Right Culture, Anaerobic [[id number]] Collected: 11/21/171207 Order Status: Sent Lab Status: In process Updated: 11/21/17 1250 Specimen: Tissue from Toe, Fifth/Small, Right Respiratory Virus Panel, NAAT [[id number]] Collected: 11/20/17 1257 Order Status: Sent Lab Status: In process Updated: 11/20/17 1302 Specimen: Tissue from Nasopharynx Culture, Wound, Smear [[id number]] Collected: 11/20/17 0825 Order Status: Completed Lab Status: Preliminary result Updated: 11/21/17 0739 Specimen: Tissue from Foot, Right Culture 1+ Gram Negative Jayesh, NOT Pseudomonas Comment: Identification and susceptibility to follow. 1+ Gram Positive Cocci Comment: Isolating for additional information. Gram Stain Result 1+ White Blood Cells No organisms seen Culture, Wound, Smear [[id number]] (Susceptibility) Collected: 11/19/172030 Order Status: Completed Lab [...] <=20 ug/mL Sensitive Culture, Respiratory, Lower, Smear [[id number]] Order Status: Sent Lab Status: No result Specimen: Body Fluid from Sputum, Expectorated Culture, Wound, Smear [[id number]] Order Status: Canceled Lab Status: No result Specimen: Tissue from Leg, Left Culture, Blood [[id number]] (Normal) Collected: 11/19/17 1537 Order Status: Completed Lab Status: Preliminary result Updated: 11/20/17 0351 Specimen: Blood from Peripheral Blood Culture No growth: Monitored continually by instrument for 5 days Culture, Blood [[id number]] (Normal) Collected: 11/19/17 1506 Order Status: Completed Lab Status: Preliminary result Updated: 11/20/17 0321 Specimen: Blood from Peripheral Blood Culture No growth: Monitored continually by instrument for 5 days Culture, Urine [[id number]] Collected: 11/19/17 1416 Order Status: Completed Lab [...] Hoff MD - 11/21/2017 11:05 AM PDT [place], [place] HOSPITALIST PROGRESS NOTE Patient: Reagan Shepard : 1945: Age: 72 y.o. MedRec: [id number] Admission date: 11/19/2017 Hospital day # : [...] E' Septal Velocity 4.79 cm/s MV Deceleration [place] 336.24 cm/s2 MV Deceleration Time 332.96 msec [...] Value Units Date/Time Respiratory Virus Panel, NAAT [[id number]] Collected: 11/20/17 1257 Order Status: Sent Lab Status: In process Updated: 11/20/17 1302 Specimen: Tissue from Nasopharynx Culture, Wound, Smear [[id number]] Collected: 11/20/17 0825 Order Status: Completed Lab Status: Preliminary result Updated: 11/21/17 0739 Specimen: Tissue from Foot, Right Culture 1+ Gram Negative Jayesh, NOT Pseudomonas Comment: Identification and susceptibility to follow. 1+ Gram Positive Cocci Comment: Isolating for additional information. Gram Stain Result 1+ White Blood Cells No organisms seen Culture, Wound, Smear [[id number]] (Susceptibility) Collected: 11/19/172030 Order Status: Completed Lab [...] + Sulfamethoxazole <=20 ug/mL Sensitive Culture, Blood [[id number]] (Normal) Collected: 11/19/17 1537 Order Status: Completed Lab Status: Preliminary result Updated: 11/20/17 0351 Specimen: Blood from Peripheral Blood Culture No growth: Monitored continually by instrument for 5 days Culture, Blood [[id number]] (Normal) Collected: 11/19/17 1506 Order Status: Completed Lab Status: Preliminary result Updated: 11/20/17 0321 Specimen: Blood from Peripheral Blood Culture No growth: Monitored continually by instrument for 5 days Culture, Urine [[id number]] Collected: 11/19/17 1416 Order Status: Completed Lab [...] Other Pharmacy Consult Nasim Jimenez 11/21/2017 11:05 [facility] Nasim Hoff MD - 11/20/2017 10:04 AM PDT [facility] [place] HOSPITALIST PROGRESS NOTE Patient: Reagan Shepard : 1945: Age: 72 y.o. MedRec: [id number] Admission date: 11/19/2017 Hospital day # : [...] PH UA 5.0 5.0 - 8.0 Specific [place] 1.017 1.001 - 1.030 PROTEIN UA 30 [...] Component Value Units Date/Time Culture, Wound, Smear [[id number]] Collected: 11/20/17 0825 Order Status: Sent Lab Status: In process Updated: 11/20/17 0829 Specimen: Tissue from Foot, Right Culture, Wound, Smear [[id number]] Collected: 11/19/17 203 Order Status: Completed Lab Status: Preliminary result Updated: 11/20/17 09 Specimen: Tissue from Leg, Lower, Right Culture 2+ Gram Negative Jayesh, NOT Pseudomonas Comment: Identification and susceptibility to follow. 1+ Gram Positive Cocci Comment: Isolating for additional information. Gram Stain Result No white blood cells (PMNs) seen 1+ Gram negative rods Culture, Blood [[id number]] (Normal) Collected: 11/19/17 1537 Order Status: Completed Lab Status: Preliminary result Updated: 11/20/17 0351 Specimen: Blood from Peripheral Blood Culture No growth: Monitored continually by instrument for 5 days Culture, Blood [[id number]] (Normal) Collected: 11/19/17 1506 Order Status: Completed Lab Status: Preliminary result Updated: 11/20/17 0321 Specimen: Blood from Peripheral Blood Culture No growth: Monitored continually by instrument for 5 days Culture, Urine [[id number]] (Normal) Collected: 11/19/17 1416 Order Status: Completed [...] Other Pharmacy Consult Nasim Jimenez 11/20/2017 10:05 [facility] Khadra Mac Phar mD - 11/20/2017 9:10 [...] Component Value Units Date/Time Culture, Wound, Smear [[id number]] Collected: 11/20/17 0825 Order Status: Sent Lab Status: In process Updated: 11/20/17 08 Specimen: Tissue from Foot, Right Culture, Wound, Smear [[id number]] Collected: 11/19/172030 Order Status: Completed Lab Status: Preliminary result Updated: 11/20/17 09 Specimen: Tissue from Leg, Lower, Right Culture 2+ Gram Negative Jayesh, NOT Pseudomonas Comment: Identification and susceptibility to follow. 1+ Gram Positive Cocci Comment: Isolating for additional information. Gram Stain Result No white blood cells (PMNs) seen 1+ Gram negative rods Culture, Respiratory, Lower, Smear [[id number]] Order Status: Sent Lab Status: No result Specimen: Body Fluid from Sputum, Expectorated Culture, Wound, Smear [[id number]] Order Status: Canceled Lab Status: No result Specimen: Tissue from Leg, Left Culture, Blood [[id number]] (Normal) Collected: 11/19/17 1537 Order Status: Completed Lab Status: Preliminary result Updated: 11/20/17 0351 Specimen: Blood from Peripheral Blood Culture No growth: Monitored continually by instrument for 5 days Culture, Blood [[id number]] (Normal) Collected: 11/19/17 1506 Order Status: Completed Lab Status: Preliminary result Updated: 11/20/17 0321 Specimen: Blood from Peripheral Blood Culture No growth: Monitored continually by instrument for 5 days Culture, Urine [[id number]] (Normal) Collected: 11/19/17 1416 Order Status: Completed [...] Value Units Date/Time Culture, Respiratory, Lower, Smear [[id number]] Order Status: Sent Lab Status: No result Specimen: Body Fluid from Sputum, Expectorated Culture, Wound, Smear [[id number]] Order Status: Sent Lab Status: No result Specimen: Tissue from Leg, Left Culture, Blood [[id number]] Collected: 11/19/17 1537 Order Status: Sent Lab Status: In process Updated: 11/19/17 1543 Specimen: Blood from Peripheral Blood Culture, Blood [[id number]] Collected: 11/19/17 1506 Order Status: Sent Lab Status: In process Updated: 11/19/17 1511 Specimen: Blood from Peripheral Blood Culture, Urine [[id number]] Collected: 11/19/17 1416 Order Status: Sent Lab [...] the | | | | PDT | ([facility]) | results section. | + [...] K?MRN: | | | | | | [id number] | | | [id number] | | | his | | | [...] | | | ent/06 | | | [id number] | | | -9b07- | | | [...] | | | St. | | | [place] | | | y H. | | [...] | | | St. | | | [place] | | | y | | | [...] + | [facility] | [address] | [place] | [phone] | | [facility] | | [address] | | | - LABORATORY | | [...] [address] | [place] | [phone] | | [facility] | | [address] | | | - LABORATORY | | [...] + | [facility] | [address] | [place] | [phone] | | [facility] | | [address] | | | - LABORATORY | | [...] | mL/min/1.73m2 | [facility] | | | [place] | RATE,ESTIMATED | | MEDICAL | | | | mL/min/1.21r4Bhsf than | | CENTER - | | [...] [address] | [place] | [phone] | | [facility] | | [address] | | | - LABORATORY | | [...] ST. | [address] | [place] | [phone] | | [facility] | | [address] | | | - LABORATORY | | [...] | | POC | | | STMariana [facility] | | | | | | MEDICAL [...] [address] | [place] | [phone] | | [facility] | | [address] | | | - LABORATORY | | [...] | | POC | | | Mariana [facility] | | | | | | MEDICAL [...] + | [facility] | [address] | [place] | [phone] | | [facility] | | [address] | | | - LABORATORY | | [...] [address] | [place] | [phone] | | [facility] | | [address] | | | - LABORATORY | | [...] + | [facility] | [address] | [place] | [phone] | | [facility] | | [address] | | | - LABORATORY | | [...] 16 | 7 - 18 mg/dL | [facility] | | | | | | Mariana [facility] | | | | | | MEDICAL | | | | | | CENTER - | | | | | | LABORATORY | | + + + + + + | Creatinine | 0.91 | 0.60 - 1.30 | [facility] | | | | | [...] mL/min/1.73m2 | Mariana [facility] | | | [place] | RATE,ESTIMATED | | MEDICAL | | | | mL/min/1.84p0Umng than | | CENTER - | | [...] [address] | [place] | [phone] | | [facility] | | [address] | | | - LABORATORY | | [...] [address] | [place] | [phone] | | [facility] | | [address] | | | - LABORATORY | | [...] [address] | [place] | [phone] | | [facility] | | [address] | | | - LABORATORY | | [...] + | [facility] | [address] | [place] | [phone] | | [facility] | | [address] | | | - LABORATORY | | [...] [address] | [place] | [phone] | | [facility] | | [address] | | | - LABORATORY | | [...] [address] | [place] | [phone] | | [facility] | | [address] | | | - LABORATORY | | [...] + | [facility] | [address] | [place] | [phone] | | [facility] | | [address] | | | - LABORATORY | | [...] mL/min/1.73m2 | [facility] | | | [place] | RATE,ESTIMATED | | MEDICAL | | | | mL/min/1.65f4Xjlt than | | CENTER - | | [...] [address] | [place] | [phone] | | [facility] | | [address] | | | - LABORATORY | | [...] | Basophils | | K/uL | STMariana [facility] | | | | | | MEDICAL [...] | [address] | [place] | [phone] | | [facility] | | [address] | | | - LABORATORY | | [...] [address] | [place] | [phone] | | [facility] | | [address] | | | - LABORATORY | | [...] [address] | [place] | [phone] | | [facility] | | [address] | | | - LABORATORY | | [...] ST. | [address] | [place] | [phone] | | [facility] | | [address] | | | - LABORATORY | | [...] [address] | [place] | [phone] | | [facility] | | [address] | | | - LABORATORY | | [...] [address] | [place] | [phone] | | [facility] | | [address] | | | - LABORATORY | | [...] + | [facility] | [address] | [place] | [phone] | | [facility] | | [address] | | | [...] + | [facility] | [address] | [place] | [phone] | | [facility] | | [address] | | | - LABORATORY | | [...] mL/min/1.73m2 | [facility] | | | [place] | RATE,ESTIMATED | | MEDICAL | | | | mL/min/1.90o2Dvqa than | | CENTER - | | [...] [address] | [place] | [phone] | | [facility] | | [address] | | | - LABORATORY | | [...] + | [facility] | [address] | [place] | [phone] | | [facility] | | [address] | | | - LABORATORY | | [...] [address] | [place] | [phone] | | [facility] | | [address] | | | - LABORATORY | | [...] | | | POC | | | [facility] | | | | | | MEDICAL [...] [address] | [place] | [phone] | | [facility] | | [address] | | | - LABORATORY | | [...] [address] | [place] | [phone] | | [facility] | | [address] | | | - LABORATORY | | [...] | | | aerogenesComment: | | [facility] | | | | Consider combination | [...] + | [facility] | [address] | [place] | [phone] | | [facility] | | [address] | | | - LABORATORY | | [...] + | [facility] | [address] | [place] | [phone] | | [facility] | | [address] | | | - LABORATORY | | [...] [address] | [place] | [phone] | | [facility] | | [address] | | | - LABORATORY | | [...] cells seen | [facility] | | | [facility] | | | [facility] | | | - LABORATORY | + + + + + + + + | Performing | Address | City/State/Zipcode | Phone Number | | Organization | | | | + + + + + | [facility] | [address] | [place] | [phone] | | [facility] | | [address] | | | - LABORATORY | | [...] [address] | [place] | [phone] | | [facility] | | [address] | | | - LABORATORY | | [...] + | [facility] | [address] | [place] | [phone] | | [facility] | | [address] | | | - LABORATORY | | [...] [address] | [place] | [phone] | | [facility] | | [address] | | | - LABORATORY | | [...] [address] | [place] | [phone] | | [facility] | | [address] | | | - LABORATORY | | [...] + | [facility] | [address] | [place] | [phone] | | [facility] | | [address] | | | - LABORATORY | | [...] | | | | | mmol/L | [facility] | | | | | | MEDICAL [...] | mL/min/1.73m2 | [facility] | | | [place] | RATE,ESTIMATED | | MEDICAL | | | | mL/min/1.20t5Xdvj than | | CENTER - | | [...] ST. | [address] | [place], [place] | [phone] | | [facility] | | [address] | | | - LABORATORY | | [...] + | [facility] | [address] | [place] | [phone] | | [facility] | | [address] | | | - LABORATORY | | [...] ST. | [address] | [place], [place] | [phone] | | [facility] | | [address] | | | - LABORATORY | | | | + + + + + Surgical Pathology Exam (11/21/2017 12:00 AM PDT) + + | Specimen | + + | | + + + + + | Narrative | Performed At | + + + | SPECIMEN(S): A RIGHT 5TH MEATATRSAL SPECIMEN SOURCE: A. RIGHT [facility] | | 5TH MEATATRSAL CLINICAL HISTORY: 5th metatarsal diabetic | [facility] | | infection. FINAL PATHOLOGIC DIAGNOSIS: Right 5th metatarsal: - | | | Bone with focal serous fat necrosis with associated acute and | | | chronic inflammation suggestive of osteomyelitis. JVR:[facility]:C2NR | | | MICROSCOPIC EXAMINATION: Histologic [...] decalcified in decal | | | STAT).. am:AMB:[facility] PERFORMING LABORATORY: The technical | | | component was performed by [employer], [address] [place] [address], | | | [facility] [address] (Medicare Insurance Specialist: Khadra Gill MD; CLIA# | | | [id number]). Professional interpretation was performed by [facility] | | | [facility], [address] | | | [facility] [address] [place] [address] (Medicare Insurance Specialist: Ambrosio | | | [place]). [...] | | | POC | | | [facility] | | | | | | MEDICAL [...] | [address] | [place] | [phone] | | [facility] | | [address] | | | - LABORATORY | | [...] | | | | | | n [place] | | | | | + +---------+ [...] | + + + + + | [facility] | [address] | [place] | [phone] | | [facility] | | [address] | | | - LABORATORY | | [...] + | Performed at: 01 - [facility] [place] [address], | REFERENCE LAB | | [place], [place] [id number] Crm Campaign Manager: Jurgen Costa MD, Phone: | NIKKI MONZON | | [phone] | | + + + + + + + + | Performing | Address | City/State/Zipcode | Phone Number | | Organization | | | | + + + + + | REFERENCE LAB | [address] | [place] [address] | [phone] | | [facility] | Drive [...] + | [facility] | [address] | [place] | [phone] | | [facility] | | [address] | | | - LABORATORY | | [...] [address] | [place] | [phone] | | [facility] | | [address] | | | - LABORATORY | | [...] [address] | [place] | [phone] | | [facility] | | [address] | | | - LABORATORY | | [...] [address] | [place] | [phone] | | [facility] | | [address] | | | - LABORATORY | | [...] [address] | [place] | [phone] | | [facility] | | [address] | | | - LABORATORY | | [...] + | [facility] | [address] | [place] | [phone] | | [facility] | | [address] | | | - LABORATORY | | [...] [address] | [place] | [phone] | | [facility] | | [address] | | | - LABORATORY | | [...] [address] | [place] | [phone] | | [facility] | | [address] | | | - LABORATORY | | [...] [address] | [place] | [phone] | | [facility] | | [address] | | | - LABORATORY | | [...] mL/min/1.73m2 | [facility] | | | [place] | RATE,ESTIMATED | | MEDICAL | | | | mL/min/1.35y2Exnq than | | CENTER - | | [...] + | [facility] | [address] | [place] | [phone] | | [facility] | | [address] | | | - LABORATORY | | [...] | | POC | | | [facility] | | | | | | MEDICAL [...] [address] | [place] | [phone] | | [facility] | | [address] | | | - LABORATORY | | [...] + | [facility] | [address] | [place] | [phone] | | [facility] | | [address] | | | - LABORATORY | | [...] | | | | aerogenesComment: | | [facility] | | | | Consider combination | [...] [address] | [place] | [phone] | | [facility] | | [address] | | | - LABORATORY | | [...] | | | POC | | | [facility] | | | | | [...] + | [facility] | [address] | [place] | [phone] | | [facility] | | [address] | | | - LABORATORY | | [...] [address] | [place] | [phone] | | [facility] | | [address] | | | - LABORATORY | | [...] [address] | [place] | [phone] | | [facility] | | [address] | | | - LABORATORY | | [...] [address] | [place] | [phone] | | [facility] | | [address] | | | - LABORATORY | | [...] [address] | [place] | [phone] | | [facility] | | [address] | | | - LABORATORY | | [...] 16 | 7 - 18 mg/dL | [facility] | | | | | | [facility] | | | | | | MEDICAL | | | | | | CENTER - | | | | | | LABORATORY | | + + + + + + | Creatinine | 0.76 | 0.60 - 1.30 | [facility] | | | | | mg/dL | [facility] | | | | | | MEDICAL | | | | | | CENTER - | | | | | | LABORATORY | | + + + + + + | eGFR if not | >60Comment: GLOMERULAR | >=60 | [facility] | | | | FILTRATION | mL/min/1.73m2 | [facility] | | | [place] | RATE,ESTIMATED | | MEDICAL | | | | mL/min/1.72n8Vgyb than | | CENTER - | | [...] + | [facility] | [address] | [place] | [phone] | | [facility] | | [address] | | | - LABORATORY | | [...] + | [facility] | [address] | [place] | [phone] | | [facility] | | [address] | | | - LABORATORY | | [...] | REFERENCE | | | | of [employer] | | LAB [facility] | | | | standards require a | | - [facility] | | | | culture to beperformed | | | | | | on CSF specimens | | | | | | submitted for bacterial | | | | | | antigen testing.(CAP | | | | | | [id number]) Urine | | | | | | [...] Ye Carranza, | REFERENCE LAB | | [place], [place] [id number] Crm Campaign Manager: Christ Deal MD, Phone: | NIKKI - NICOLÁS | | [phone] | | + + + + + + + + | Performing | Address | City/State/Zipcode | Phone Number | | Organization | | | | + + + + + | REFERENCE LAB | [address] | [place] [address] | [phone] | | [facility] | Drive [...] + | [facility] | [address] | [place], [place] | [phone] | | [facility] | | [address] | | | - LABORATORY | | [...] - 1.030 | [facility] | | | [place] | | | [facility] | | [...] [address] | [place] | [phone] | | [facility] | | [address] | | | - LABORATORY | | [...] | | | | | | use [place] 10/325 if ordered. If | | | [...] | | | | last modification) on [facility] 11/24/17 | | | | | [...] | | | | | | | [id number] Use NIGHT DOSE for | | | | | | | doses scheduled: HS, 3AM, | | | | | | | Nighttime 4769-9768, | | | | | | + [...] scheduled: AC, NPO, Daytime | | | 8328-1052 Use NIGHT DOSE for | | | doses scheduled: HS, 3AM, | | | Nighttime 0333-5383, | | + +---+ | | | [...] | | | | | | | 3015-4201 Use NIGHT DOSE for | | | | | | | doses scheduled: HS, 3AM, | | | | | | | Nighttime 5380-0491, | | | | | | + [...] | | | | | Subcutaneous, ONCE, [facility] 11/24/17 at | | | | [...]
--- OUTSIDE RECORDS SUMMARY | 2019-04-05 15:22 | XMS ---
PreManage Notification: SAROJ AMEZQUITA Security Commutator Operator Events No recent Security Events currently on file CRITERIA MET - [facility] - [facility] - 2 Visits in 30 Days CARE PROVIDERS Name Unknown Nursing Home Facility Current PHONE: [phone] [facility] 01/08/2019-Current PHONE: [phone] Leonard Lopez DO Family Medicine Current PHONE: Unknown Name Unknown Clinic/Center: [facility] 03/27/2019-Current PHONE: [phone] Leonard Lopez DO Treatment Current PHONE: Unknown Jalen has no Care Guidelines for this patient. Care History Medical/Surgical 03/27/2019 [facility] - PATIENT HAS PCP-DR ROSLYN JONES AT THE [facility] HIS PCP- - LAST VISIT WITH DR JONES WAS ON 02/05/19 AND PT WAS SCHEDULED FOR PATIENT- PATIENT WAS SUPPOSED TO BE SEEN ON 03/22/2019 FOR PT - PROVIDER DOES NOT HAVE RECORDS. - PATIENT RECENTLY HAD A GEC DONE BY THE AL PROVIDER IN OCTOBER 2018. - [facility] WILL HAVE ALL RECENT ED RECORDS SENT TO PCP AT THE AL-PATIENT DOES NOT HAVE DR [facility] PCP. E.D. VISIT COUNT (12 MO.) 6 [facility]. TOTAL 6 NOTE: Visits indicate total known visits. ED/UCC VISIT TRACKING (12 MO.) 04/05/2019 15:20 [facility] TYPE: Emergency COMPLAINT: - SOB 03/28/2019 09:43 [facility] TYPE: Emergency COMPLAINT: - ALTERED LOC 03/22/2019 18:35 [facility] TYPE: Emergency COMPLAINT: - SOB DIAGNOSES: - Shortness of breath - Heart failure, unspecified - Other electronic publications specialist (current) drug therapy - 1 Type 2 diabetes mellitus with diabetic polyneuropathy - Personal history of nicotine dependence 03/16/2019 17:57 [facility] TYPE: Emergency COMPLAINT: - DRESSING CHANGE DIAGNOSES: - 1 Type 2 diabetes mellitus with diabetic polyneuropathy - Acquired absence of left foot - Other retirement (current) drug therapy - 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 w unsp severity - 1 Type 2 diabetes mellitus with foot ulcer - grievance manager (current) use of insulin - Personal history of nicotine dependence - Non-prs chronic ulcer oth prt right foot w unsp severity - Encounter for change or removal of surgical wound dressing - grievance manager (current) use of aspirin 01/06/2019 00:10 [facility] TYPE: Emergency COMPLAINT: - POST OP PROBLEM DIAGNOSES: - grievance manager (current) use of aspirin - Personal history of nicotine dependence - 1 Type 2 diabetes mellitus with diabetic neuropathy, unsp - Other retirement (current) drug therapy - Encounter for change or removal of surgical wound dressing - FDC (current) use of insulin 06/05/2018 20:34 [facility] TYPE: Emergency COMPLAINT: - SOB INPATIENT VISIT TRACKING (12 MO.) 03/28/2019 15:00 [facility] TYPE: Medical Surgical COMPLAINT: - ACUTE RESP FAILURE/ACUTE CHF SYSTOLIC DIAGNOSES: - Sepsis due to streptococcus, group B Sepsis du - Acute respiratory failure with hypoxia - Iron deficiency anemia, unspecified - Hypertensive heart disease with heart failure - 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 - Acute on chronic systolic (congestive) heart failure - Non-prs chronic ulcer oth prt r low leg w fat layer exposed - Personal history of nicotine dependence - Gastro-esophageal reflux disease without esophagitis - 1 Type 2 diabetes mellitus with diabetic polyneuropathy - Personal history of traumatic brain injury - FDC (current) use of insulin - Low back pain - Adverse effect of diagnostic agents, initial encounter - Low back pain - FDC (current) use of aspirin - Acute respiratory failure with hypoxia - Sepsis due to streptococcus, group B Sepsis du - Bed confinement status - Unsp place in hospital as place - Personal history of traumatic brain injury - Hypertensive heart disease with heart failure - FDC (current) use of aspirin - Non-prs chronic ulcer oth prt r low leg w fat layer exposed - 1 Type 2 diabetes w diabetic peripheral angiopath w/o gangren - Unsp place in hospital as place - Gastro-esophageal reflux disease without esophagitis - Acute on chronic systolic (congestive) heart failure - Non-prs chr ulcer of right heel and midfoot w necros muscle - Hypo-osmolality and hyponatremia - Other chronic pain - Acute kidney failure, unspecified - Severe sepsis with septic shock - 1 Type 2 diabetes mellitus with foot ulcer - 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 - Non-prs chr ulcer of right heel and midfoot w necros muscle - Other retirement (current) drug therapy - Bed confinement status - Adverse effect of diagnostic agents, initial encounter - Non-prs chr ulcer of left heel and midfoot w necros muscle - 1 Type 2 diabetes mellitus with foot ulcer - 1 Myocardial infarction type - Hemiplga following cerebral infrc affecting left nondom side - Hypo-osmolality and hyponatremia - Iron deficiency anemia, unspecified - Shortness of breath - Hemiplga following cerebral infrc affecting left nondom side - 1 Type 2 diabetes mellitus with diabetic polyneuropathy - 1 Myocardial infarction type - Acute kidney failure, unspecified - Other chronic pain - Non-prs chr ulcer of left heel and midfoot w necros muscle - Other electronic publications specialist (current) drug therapy - 1 Type 2 diabetes w diabetic peripheral angiopath w/o gangren - grievance manager (current) use of insulin - Severe sepsis with septic shock - Personal history of nicotine dependence 06/06/2018 08:[address] [facility] [place] [...] - Sepsis, unspecified organism Sepsis, u - grievance manager (current) use of insulin - grievance manager (current) use of insulin - 1 Type 2 diabetes mellitus with diabetic polyneuropathy - Essential (primary) hypertension - Osteomyelitis, unspecified [email or web address]
--- NOTE | 2019-04-06 19:46 | EKG ---
[facility] [address] [facility] [place] [address] Signed Normal sinus rhythm Moderate voltage criteria for LVH, may be normal variant Borderline ECG When compared with ECG of 05-APR-2019 18:38, (Unconfirmed) Borderline criteria for Inferior infarct are no longer present ST no longer depressed in Inferior leads Nonspecific T wave abnormality has replaced inverted T waves in Inferior leads Confirmed by HARMONY LOPEZ DO ([id number]) on 04/06/2019 7:46:30 PM Electronically Signed By: HARMONY LOPEZ DO 04/06/19 1946 PATIENT NAME: SAROJ AMEZQUITA Electrocardiogram DATE OF : 49 PHYSICIAN: HARMONY LOPEZ DO REPORT #: [id number] REPORT IS CONFIDENTIAL AND NOT TO BE RELEASED WITHOUT AUTHORIZATION
--- NOTE | 2019-04-06 19:46 | EKG ---
[facility] [address] [facility] [place], [place] [address] Signed Normal sinus rhythm Moderate voltage criteria for LVH, may be normal variant Possible Inferior infarct , age undetermined Abnormal ECG Poor data quality Confirmed by HARMONY LOPEZ DO ([id number]) on 04/06/2019 7:46:22 PM Electronically Signed By: HARMONY LOPEZ DO 04/06/19 1946 PATIENT NAME: SAROJ AMEZQUITA Electrocardiogram DATE OF : 49 PHYSICIAN: HARMONY LOPEZ DO REPORT #: [id number] REPORT IS CONFIDENTIAL AND NOT TO BE RELEASED WITHOUT AUTHORIZATION
== END ==
LOC: ED 15:19
DX: I50.23 Acute on chronic systolic (congestive) heart failure (principal); R79.89 Other specified abnormal findings of blood chemistry; E11.42 Type 2 diabetes mellitus with diabetic polyneuropathy; Z86.73 Personal history of transient ischemic attack (TIA), 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 deficits; Z87.891 Personal history of nicotine dependence; Z79.899 Other long term (current) drug therapy; Z79.4 Long term (current) use of insulin; Z79.82 Long term (current) use of aspirin
CPT/HCPCS: 36415; 71045; 80053; 83605; 83690; 83880; 84484; 85025; 93005; 93010; 99285-25

== ENCOUNTER 2019-04-24 13:13 | Emergency (ER) | payer MEDICARE ==
[~2019-04-24] VITALS: Ht 177.8 cm; Wt 114.0 kg
--- OUTSIDE RECORDS SUMMARY | 2019-04-24 13:16 | XMS ---
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 Care History Medical/Surgical 03/27/2019 [facility] - PATIENT HAS PCP-DR ROSLYN JONES AT THE [facility] HIS PCP- - LAST VISIT WITH DR JONES WAS ON 02/05/19 AND PT WAS SCHEDULED FOR PATIENT- PATIENT WAS SUPPOSED TO BE SEEN ON 03/22/2019 FOR PT - PROVIDER DOES NOT HAVE RECORDS. - PATIENT RECENTLY HAD A GEC DONE BY THE [place] PROVIDER IN OCTOBER 2018. - [facility] WILL HAVE ALL RECENT ED RECORDS SENT TO PCP AT THE [facility]-PATIENT DOES NOT HAVE DR CHI PCP. EMiguel Angel VISIT COUNT (12 MO.) [address] [place] [address]. TOTAL 7 NOTE: Visits indicate total known visits. ED/UCC VISIT TRACKING (12 MO.) 04/24/2019 13:13 [facility] [place] TYPE: Emergency COMPLAINT: - SOB 04/05/2019 15:20 [facility] [place] TYPE: Emergency COMPLAINT: - SOB DIAGNOSES: - Other specified abnormal findings of blood chemistry - nursing home (current) use of aspirin - Prsnl hx of TIA (TIA), and cereb infrc w/o resid deficits - Other group home (current) drug therapy - Personal history of nicotine dependence - nursing home (current) use of insulin - Dyspnea, unspecified - Acute on chronic systolic (congestive) heart failure - 1 Type 2 diabetes mellitus with diabetic polyneuropathy 03/28/2019 09:43 [facility] [place] TYPE: Emergency COMPLAINT: - ALTERED LOC 03/22/2019 18:35 [facility] [place] TYPE: Emergency COMPLAINT: - SOB DIAGNOSES: - Shortness of breath - Heart failure, unspecified - Other group home (current) drug therapy - 1 Type 2 diabetes mellitus with diabetic polyneuropathy - Personal history of nicotine dependence 03/16/2019 17:57 [facility] [place] TYPE: Emergency COMPLAINT: - DRESSING CHANGE DIAGNOSES: - 1 Type 2 diabetes mellitus with diabetic polyneuropathy - Acquired absence of left foot - Other group home (current) drug therapy - 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 w unsp severity - 1 Type 2 diabetes mellitus with foot ulcer - nursing home (current) use of insulin - Personal history of nicotine dependence - Non-prs chronic ulcer oth prt right foot w unsp severity - Encounter for change or removal of surgical wound dressing - intermediate designer (current) use of aspirin 01/06/2019 00:10 [facility] [place] TYPE: Emergency COMPLAINT: - POST OP PROBLEM DIAGNOSES: - nursing home (current) use of aspirin - Personal history of nicotine dependence - 1 Type 2 diabetes mellitus with diabetic neuropathy, unsp - Other long term acute care registered nurse (current) drug therapy - Encounter for change or removal of surgical wound dressing - nursing home (current) use of insulin 06/05/2018 20:34 [facility] [place] TYPE: Emergency COMPLAINT: - SOB INPATIENT VISIT TRACKING (12 MO.) [facility]: Vascular Surgery DIAGNOSES: - Other osteomyelitis, ankle and foot - Other chronic osteomyelitis, unspecified site - Bacterial infection, unspecified Bacterial - intermediate designer (current) use of insulin - Essential (primary) hypertension - NSTEMI - Peripheral vascular disease, unspecified - Chest pain, unspecified - Hemiplegia, unspecified affecting left nondominant side - Osteomyelitis, unspecified - Other acute osteomyelitis, right ankle and foot - Gangrene, not elsewhere classified - Methicillin resis staph infection, unsp site Methicill - 1 Type 2 diabetes mellitus without complications 03/28/2019 15:00 [facility] [place] TYPE: Medical [...] Personal history of traumatic brain injury - intermediate designer (current) use of insulin - Low back pain - Adverse effect of diagnostic agents, initial encounter - Low back pain - intermediate designer (current) use of aspirin - Acute respiratory failure with hypoxia - Sepsis due to streptococcus, group B Sepsis du - Bed confinement status - Unsp place in hospital as place - Personal history of traumatic brain injury - Hypertensive heart disease with heart failure - nursing home (current) use of aspirin - Non-prs chronic [...] and midfoot w necros muscle - Other group home (current) drug therapy - Bed confinement status [...] and midfoot w necros muscle - Other long term acute care registered nurse (current) drug therapy - 1 Type 2 diabetes w diabetic peripheral angiopath w/o gangren - nursing home (current) use of insulin - Severe sepsis with septic shock - Personal history of nicotine dependence 06/06/2018 08:32 [facility] [place] TYPE: Medical [...] - Sepsis, unspecified organism Sepsis, u - intermediate designer (current) use of insulin - nursing home (current) use of insulin - 1 Type 2 diabetes mellitus with diabetic polyneuropathy - Essential (primary) hypertension - Osteomyelitis, unspecified [email or web address]
[2019-04-24] MEDS ORDERED: ASPIR 8181 MG PO (13:53)
[2019-04-24] MEDS ORDERED: CLOPIDOGREL75 MG PO (13:54)
[2019-04-24] MEDS ORDERED: LIPITOR40 MG PO (13:54)
[2019-04-24] MEDS ORDERED: DOCUSATE CALCI240 MG PO (13:55)
[2019-04-24] MEDS ORDERED: AVODART0.5 MG PO (13:55)
[2019-04-24] MEDS ORDERED: KLOR-CON 1010 MEQ PO (13:55)
[2019-04-24] MEDS ORDERED: COZAAR25 MG PO (13:56)
[2019-04-24] MEDS ORDERED: ONGLYZA5 MG PO (13:57)
[2019-04-24] MEDS ORDERED: OMEPRAZOLE20 MG PO (13:57)
[2019-04-24] MEDS ORDERED: TORSEMIDE20 MG PO (13:58)
[2019-04-24] MEDS ORDERED: COREG6.25 MG PO (13:58)
[2019-04-24] MEDS ORDERED: CYMBALTA30 MG PO (13:59)
[2019-04-24] MEDS ORDERED: FLOMAX0.4 MG PO (13:59)
[2019-04-24] MEDS ORDERED: GABAPENTIN800 MG PO (13:59)
[2019-04-24] MEDS ORDERED: ZOSYN 3.373.375 GM/5 IV (14:01)
[2019-04-24] MEDS ORDERED: PAIN RELIEF650 MG PO (14:04)
[2019-04-24] MEDS ORDERED: IPRAT-ALBUT 0.5-3 ML INH (14:05)
[2019-04-24] MEDS ORDERED: OXYCODONE HCL5 MG PO (14:07)
[2019-04-24] MEDS ORDERED: ZOFRAN4 MG PO (14:07)
[2019-04-24] MEDS ORDERED: VANCOMYCIN1.75 GM/50 IV (14:08)
--- NOTE | 2019-04-25 11:47 | EKG ---
[facility] [address] [facility] [place], [place] [address] Signed Normal sinus rhythm Normal ECG When compared with ECG of 05-APR-2019 19:05, Questionable change in QRS axis Nonspecific T wave abnormality no longer evident in Inferior leads Confirmed by HARMONY LOPEZ DO ([id number]) on 04/25/2019 11:46:55 AM Electronically Signed By: HARMONY LOPEZ DO 04/25/19 1147 PATIENT NAME: SAROJ AMEZQUITA Electrocardiogram DATE OF : 49 PHYSICIAN: HARMONY LOPEZ DO REPORT #: [id number] REPORT IS CONFIDENTIAL AND NOT TO BE RELEASED WITHOUT AUTHORIZATION
== END 2019-04-24 15:55 | disposition home or self-care (01) ==
LOC: ED 13:13
DX: R09.89 Other specified symptoms and signs involving the circulatory and respiratory systems (principal); E11.40 Type 2 diabetes mellitus with diabetic neuropathy, unspecified; Z87.891 Personal history of nicotine dependence
CPT/HCPCS: 36415; 71045; 80053; 82803; 83605; 83735; 84484; 85025; 93005; 93010; 99285-25

== ENCOUNTER 2019-05-18 15:02 | Emergency (ER) | payer MEDICARE, OTHER ==
[~2019-05-18] VITALS: Ht 177.8 cm; Wt 113.9 kg
[~2019-05-18 15:02] MED LIST changes: +AVODART0.5 MG PO; +CLOPIDOGREL75 MG PO; +COREG6.25 MG PO; +COZAAR25 MG PO; +CYMBALTA30 MG PO; +DOCUSATE CALCI240 MG PO; +FLOMAX0.4 MG PO; +GABAPENTIN800 MG PO; +KLOR-CON 1010 MEQ PO; +PAIN RELIEF650 MG PO; +VANCOMYCIN1.75 GM/50 IV; +ZOFRAN4 MG PO; +ZOSYN 3.373.375 GM/5 IV
== END 2019-05-18 17:34 | disposition home or self-care (01) ==
LOC: ED 15:02
DX: M79.89 Other specified soft tissue disorders (principal); Z95.9 Presence of cardiac and vascular implant and graft, unspecified; E11.42 Type 2 diabetes mellitus with diabetic polyneuropathy; F43.10 Post-traumatic stress disorder, unspecified; Z87.891 Personal history of nicotine dependence; Z79.4 Long term (current) use of insulin; Z79.899 Other long term (current) drug therapy; Z79.82 Long term (current) use of aspirin
CPT/HCPCS: 93971; 99284-25

== ENCOUNTER 2019-08-08 14:54 | Observation (INO) | payer MEDICARE, OTHER ==
[~2019-08-08] VITALS: Ht 177.8 cm; Wt 92.7 kg
--- NOTE | ~2019-08-08 | DS ---
[facility] [address] [facility] [place], [place] [address] Draft ADMISSION DATE: 08/08/2019 DISCHARGE DATE: 08/10/2019 REASON FOR ADMISSION: This is a 74-year-old male previously living at [facility], who was sent in after being found short of breath with vomit on his shirt. He was evaluated in the Emergency Department and found to hypotensive. He also had altered mental status. ADMISSION DIAGNOSES: 1. Probable pneumonia. 2. Altered mental status. 3. Systemic inflammatory response syndrome or early sepsis. 4. Vomiting. 5. Chronic back pain. 6. Stroke. 7. Traumatic brain injury. 8. Peripheral neuropathy. 9. History of systolic heart failure. DISCHARGE DIAGNOSES: 1. Probable pneumonia. 2. Altered mental status. 3. Sepsis or systemic inflammatory response syndrome. 4. Vomiting. 5. Chronic back pain. 6. Stroke. 7. Traumatic brain injury. 8. Peripheral neuropathy. 9. History of systolic heart failure. HOSPITAL COURSE: The patient was initially admitted to the critical care unit due to hypotension. He did respond to fluids and did not require pressures. He suddenly improved with improved oxygenation. He was able to be transferred to the medical floor on 08/09/2019. There were no procedures. No consultants. The patient was discharged back to [facility] after being treated with IV Zosyn for 3 days. He was then transitioned to p.o. Augmentin. PATIENT NAME: SAROJ AMEZQUITA DISCHARGE SUMMARY DATE OF : 49 REPORT #: [id number] PHYSICIAN: LEXIE RUANO MD PCP: JAMAR JONES MD REPORT IS CONFIDENTIAL AND NOT TO BE RELEASED WITHOUT AUTHORIZATION [place] [address] [facility], [place] [address] Draft Lexie Ruano MD CR/MODL /[id number] cc: Jamar Jones MD Copies: JAMAR JONES MD ~ PATIENT NAME: SAROJ AMEZQUITA DISCHARGE SUMMARY DATE OF : 49 REPORT #: [id number] PHYSICIAN: LEXIE RUANO MD PCP: JAMAR JONES MD REPORT IS CONFIDENTIAL AND NOT TO BE RELEASED WITHOUT AUTHORIZATION
--- OUTSIDE RECORDS SUMMARY | ~2019-08-08 | XMS | Encounter Summary ---
Demographics + + + | Address | [address] | | | [place] [address] | + + + | Home Phone | | + + + | Preferred Language | Unknown | + + + | Marital Status | | + + + | Mandaeism Affiliation | [id number] | + + + | Race | Unknown | + + + | Ethnic Group | Unknown | + + + Author + + + | Author | [facility] | | | and [place] | + + + | Organization | [facility] | | | and [place] | + + + | Address | Unknown | + + + | Phone | Unavailable | + + + Support + + + + + | Name | Relationship | Address | Phone | + + + + + | Jessica Shepard | ECON | [address] | | | | | [place] | | | | | [address] | | + + + + + | Bel Solis | ECON | Unknown | | + + + + + Care Team Providers + +------+ + | Care Cage Unloader Name | Role | Phone | + +------+ + | Jamar Manuel MD | PCP | | + +------+ + Encounter Details +--------+ + + + + | Date | Type | Department | Care Team | Description | +--------+ + + + + | 05/18/ | Documentati | [facility] | [place], | | | 2020 | on | INFECTIOUS DISEASE | MD [address] | | | | | [address] | [place] | | | | | [place], [place] | [place] [address] | | | | | [address] | [phone] | | | | | [phone] | | | +--------+ + + + [...] + + documented as of this encounter Progress Notes Damaris Dolan MD - 05/18/2019 1:50 PM PSTPatient's nurse in SNF called regarding are a concerning for infiltration, bulge approximately 6 cm at site of his PICC with no erythema , warmth or tenderness. I recommended US to r/o thrombosis or fluid collection. For now, I V antibiotic Rx will be done through peripheral IV. Should further issues arise over the weekend, ID carton forming machine helper physician will be contacted.Electr onically signed by Damaris Dolan MD at 05/18/2019 1:59 PM PSTdocumented in this encoun ter Plan of Treatment Not on filedocumented as [...]
--- OUTSIDE RECORDS SUMMARY | ~2019-08-08 | XMS | Encounter Summary ---
Demographics + + + | Address | [address] | | | [place] [address] | + + + | Home Phone | | + + + | Preferred Language | Unknown | + + + | Marital Status | | + + + | Sabianism Affiliation | [id number] | + + + | Race | Unknown | + + + | Ethnic Group | Unknown | + + + Author + + + | Author | [facility] | | | and [place] | + + + | Organization | [facility] | | | and [place] | + + + | Address | Unknown | + + + | Phone | Unavailable | + + + Support + + + + + | Name | Relationship | Address | Phone | + + + + + | Jessica Shepard | ECON | [address] | | | | | [place] | | | | | [phone] | | + + + + + | Bel Solis | ECON | Unknown | | + + + + + Care Team Providers + +------+ + | Care Machine Cloth Trimmer Name | Role | Phone | + +------+ + | Jamar Manuel MD | PCP | | + +------+ + Encounter Details +--------+ + + + + | Date | Type | Department | Care Team | Description | +--------+ + + + + | 04/06/ | Hospital | [facility] | Jagdish Jimenez DO | Insulin dependent | | 2020 - | Encounter | [facility] | [address] | diabetes mellitus | | | | [address] | [place] [address] | ([facility]LY [facility]) (Primary Dx); | | 04/21/ | | [place], [place] | [phone] | Peripheral vascular | | 2020 | | [address] | | disease ([facility]); Other | | | | [phone] | Ady Yin MD | osteomyelitis of | | | | | [address] | right foot ([facility]); | | | | | [place] [address] | Essential | | | | | [phone] | hypertension; Acute | | | | | | left hemiparesis | | | | | Grover Charles MD | ([facility]); Other | | | | | [address] | osteomyelitis of | | | | | [place] [address] | right foot ([facility]); | | | | | [phone] | Chronic | | | | | | osteomyelitis ([facility]); | | | | | Scooter Davies MD | Acute osteomyelitis | | | | | [address] | of right calcaneus | | | | | [place] | ([facility]); Osteomyelitis | | | | | [address] | of metatarsal | | | | | | ([facility]); Gangrene of | | | | | | left foot ([facility]); | | | | | | Severe arterial | | | | | | insufficiency of | | | | | | lower extremity | | | | | | ([facility]); Polymicrobial | | | | | | bacterial | | | | | | infection; MRSA | | | | | | infection; Chest | | | | | | pain, unspecified | | | | | | type | +--------+ + + + + Social [...] + + + | Blood Pressure | 128/67 | 04/21/2019 11:53 AM | | | | | PST | | + + + + + | Pulse | 65 | 04/21/2019 11:53 AM | | | | | PST | | + + + + + | Temperature | 36.5 C (97.7 F) | 04/21/2019 11:53 AM | | | | | PST | | + + + + + | Respiratory Rate | 18 | 04/21/2019 11:53 AM | | | | | PST | | + + + + + | Oxygen Saturation | 96% | 04/21/2019 11:53 AM | | | | | PST | | + + + + + | Inhaled Oxygen | - | - | | | Concentration | | | | + + + + + | Weight | 105.7 kg (233 lb) | 04/21/2019 3:44 AM | | | | | PST | | + + + + + | Height | 177.8 cm (5' 10") | 04/06/2019 1:25 AM | | | | | PST | | + + + + + | Body Mass Index | 33.43 | 04/06/2019 1:25 AM | | | | | PST | | + + + + + documented in this encounter Functional Status + + + [...] + + documented as of this encounter Discharge Summaries Scooter Davies MD - 04/21/2019 11:53 AM PSTFormatting of this note might be different fr om the original. Patient: Reagan Shepard : 1945 Date of Admission: 04/06/2019 Date of Discharge: 04/21/2019 Treatment Team: Lior Trujillo MD; Aleksander Montiel MD; Simba Cheng MD; Ambrosio Barreto MD; Hai Harvey DPM; Damaris Dolan MD Discharging Provider: Scooter Davies MD Discharge Diagnoses: Principal Problem (Resolved): Bacteremia Active Problems: Insulin dependent diabetes mellitus Peripheral vascular disease Class 1 obesity with serious comorbidity in adult Essential hypertension Acute left hemiparesis GERD (gastroesophageal reflux disease) History of stroke Chronic pain Hypomagnesemia Other osteomyelitis of right foot Resolved Problems: NSTEMI (non-ST elevated myocardial infarction) Acute decompensated heart failure Acute respiratory failure Gross hematuria Procedures Performed: Procedure(s) (LRB): BYPASS GRAFT FEMORAL-TIBIAL (Right) . Chief Complaint: Shortness of breath Hospital Course: Briefly, 74-year-old male with extensive past medical history most significant for bilatera l nonhealing diabetic foot ulcers, history of stroke, TBI, insulin-dependent type 2 diabetes mellitus, chronic combined congestive heart failure and other chronic comorbidities who pre sents to [facility] on 04/06 for shortness of breath admitted with 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 The patient was admitted to regular medical floor and started on optimal medical management . On-call loan clerk (Dr. Ruelas) recommended continued medical management. Patient was eventually transitioned to torsemide, and continued on Coreg 6.25 mg p.o. twice daily and lo sartan 25 mg daily. The patient was noted to be anemic and received 2 units of packed red b lood cells on 04/15 and 1 unit of packed red blood cell on 04/16. The patient did receive IV iron x3 days, with conversion to oral iron. Hospital stay required vascular surgery consult ation as patient was noted to have critical lower limb ischemia status post femoral to per chan artery bypass surgery (04/18 Dr. Robbins). The patient was maintained on aspirin and sta tin. The patient's hospital stay was also complicated by gross hematic area requiring CBI a nd urology consultation with noted improvement. The patient's elevated troponin on admiss ion were presumed to be secondary to demand ischemia. Stress test performed on 04/16 demon strated inferior defect with partial improvement at rest nursery supervisor was i nformed by hospitalist colleague recommended continued medical management without any surg ical intervention. Of note, the patient at another facility was noted to have strep bactere josh repeat blood cultures x2 demonstrate no growth to date. ID was consulted patient started on vancomycin with outpatient follow-up in ID clinic 2 weeks after discharge. On e day of discharge, the patient was alert and oriented x3, tolerating p.o. diet without symp toms, clinically, hemodynamically from a laboratory perspective stable for discharge with ou tpatient follow-up. The patient is to follow-up with their primary care provider within [place] after discharge, follow-up with ID in 2 weeks after discharge, follow-up with vascular s minnie as per their recommendations or otherwise within 2 weeks after discharge. The patien t will need to follow-up with his outpatient loan clerk within 1 to 2 weeks after discharg e. All questions answered. The patient was able to reiterate what was discussed verbally d emonstrating understanding. Of note, a stat renal function panel was ordered prior to discharge unremarkable serum po tassium. Discharge Exam and Data: Vital Signs: BP 131/67 | Pulse 62 | Temp 35.9 C (96.7 F) (Axillary) | Resp 18 | Ht 1.778 m (5' 1 0") | Wt 105.7 kg (233 lb) | SpO2 92% | BMI 33.43 kg/m Physical Exam Vitals signs and nursing note reviewed. Constitutional: General: He is not in acute distress. Appearance: He is obese. He is not toxic-appearing. Eyes: Pupils: Pupils are equal, round, and reactive to light. Neck: Musculoskeletal: Neck supple. Cardiovascular: Rate and Rhythm: Normal rate. Pulses: Normal pulses. Pulmonary: Effort: No respiratory distress. Abdominal: General: Bowel sounds are normal. Tenderness: There is no abdominal tenderness. There is no guarding or rebound. Musculoskeletal: General: No swelling. Skin: General: Skin is warm. Neurological: General: No focal deficit present. Mental Status: He is alert and oriented to person, place, and time. Mental status is at baseline. Psychiatric: Mood and Affect: Mood normal. Recent Labs BMP 134* 101 25 183* 4.6 29 1.0 CaMgPhos 8.0* 2.1 LFT 18 70 18 2.0* CBC 12.42* 10.0* 324 30.9* Coag 34* 1.2 Last labs from current encounter as of 04/21/19-11:53 Recent Radiology Results Results Reviewed. Discharge Information: Follow up: [address] [address] Bhanu Seaman PA-C [address] [place] [id number] In 2 weeks Jamar Manuel [place] [address] Schedule an appointment as soon as possible for a visit in 1 week Hero Gaston MD [address] [facility] [id number] Schedule an appointment as soon as possible for a visit in 2 weeks Post hospital discharge follow-up Dr. New Ruelas [address] [facility] [id number] Schedule an appointment as soon as possible for a visit in 2 weeks post hospital discharg e follow-up. Current active diet order is: Diet Diet general; fat and cholesterol modified; sodium restricted 3-4 gm; Effective Now Discharge Medications New Medications Details aspirin 81 mg chewable tablet Replaces: aspirin 325 mg tablet Chew and swallow 1 tablet Daily. Start: April 22, 2019 cadexomer iodine 0.9 % gel Cleanse wounds with saline, apply gel to wound base, cover with dry gauze, followed by rol l gauze to secure. Prevalon boot. aka: IODOSORB Start: April 22, 2019 carvedilol 6.25 mg tablet Take 1 tablet by mouth 2 times daily (with breakfast & dinner). aka: COREG clopidogrel 75 mg tablet Take 1 tablet by mouth Daily. aka: PLAVIX Start: April 22, 2019 diclofenac 1% Gel Apply 4 g topically 4 times daily. aka: VOLTAREN dutasteride 0.5 mg capsule Take 1 capsule by mouth Daily. aka: AVODART losartan 25 mg tablet Take 1 tablet by mouth Daily. aka: COZAAR Start: April 22, 2019 ondansetron 4 mg disintegrating tablet Take 1-2 tablets by mouth every 6 hours as needed for Nausea or Vomiting. aka: ZOFRAN ODT piperacillin-tazobactam (ZOSYN) IVPB (custom doses) 3.375 g Inject 3.375 g into the vein every 6 hours for 33 days. Indications: Infection of Bone and Bone Marrow potassium chloride 10 mEq CR tablet Take 1 tablet by mouth Daily. aka: KLOR-CON tamsulosin 0.4 mg Caps Take 1 capsule by mouth 2 times daily. aka: FLOMAX torsemide 20 mg tablet Take 1 tablet by mouth Daily. aka: DEMADEX Start: April 22, 2019 vancomycin IVPB 1.75 g Inject 1.75 g into the vein every 24 hours for 33 days. Indications: Infection of Bone and Bone Marrow Changed Medications Details acetaminophen 325 mg tablet Take 2 tablets by mouth every 4 hours as needed for Pain (or fever >= 38.6 C (101.5 F)). What changed: Another medication with the same name was removed. Continue taking this medi cation, and follow the directions you see here. aka: TYLENOL oxyCODONE 5 mg tablet Take 1-2 tablets by mouth every 4 hours as needed for Pain. What changed: What Changed: Instructions aka: ROXICODONE senna 8.6 mg tablet Take 1 tablet by mouth Twice daily as needed for Constipation. What changed: Another medication with the same name was removed. Continue taking this medi cation, and follow the directions you see here. aka: SENOKOT Unchanged Medications Details albuterol-ipratropium 2.5-0.5 mg/3 mL Soln Take 3 mLs by nebulization every 4 hours as needed. atorvaSTATin 40 mg tablet Take 40 mg by mouth nightly. aka: LIPITOR docusate sodium 100 MG capsule Take 200 mg by mouth Daily. aka: COLACE DULoxetine [address] capsule Take 30 mg by mouth 2 times daily. aka: CYMBALTA gabapentin 400 mg capsule Take 800 mg by mouth 3 times daily. aka: NEURONTIN insulin glargine 100 units/mL injection (vial) Inject 30 Units under the skin 2 times daily. aka: LANTUS insulin lispro 100 units/mL injection (pen) Inject 0-12 Units under the skin 4 times daily (with meals and nightly). Blood Glucose (BG ) < 150:None BG 150-200: DAY: 2 units.NIGHT: 0 units BG 201-250: DAY: 4 units.NIGHT: 2 units BG 251-300: DAY: 6 units.NIGHT: 4 units BG 301-350: DAY: 8 units.NIGHT: 6 units BG 351-400: DAY: 10 units.NIGHT: 8 units BG > 400 : DAY: 12 units.NIGHT: 10 units aka: humaLOG KWIKPEN omeprazole 20 mg capsule Take 20 mg by mouth every morning (before breakfast). aka: priLOSEC sAXagliptin 5 mg Tabs tablet Take 5 mg by mouth Daily. aka: ONGLYZA trolamine salicylate 10% cream Apply topically every 4 hours as needed for Pain. aka: ASPERCREME Discontinued Medications amLODIPine 5 mg tablet aka: NORVASC aspirin 325 mg tablet Replaced by: aspirin 81 mg chewable tablet docusate-senna 50-8.6 mg per tablet aka: SENOKOT-S HYDROcodone-acetaminophen 10-325 mg per tablet aka: NORCO . Disposition: long term Condition: Stable Code Status: Full Code Discharge took 45 minutes, to include final examination, discussion of admission, and prepa ration of prescriptions, instructions for on-going care, follow-up and documentation of disc harge summary. Scooter Davies MD 11:53 AM 04/21/2019 documented in this e ncounter Discharge Instructions Instructions Bhanu Seaman PA-C - 04/21/2019Formatting of this note might be different f rom the original. Peripheral Artery Bypass Surgery Surgery to bypass a blocked leg artery can ease your symptoms. The bypass is done with a sp ecial tube (graft) that directs blood around the blockage. Attaching the graft Peripheral bypass grafts carry blood from the femoral artery in your thigh to an artery fur ther down your leg. During the surgery, a graft is stitched into the artery above and below your blockage. This creates a new passage for blood flow. The blocked section ofyour dimas ry isnot removed. After the graft is in place, your doctor closes the cuts (incisions) in yourskin with stitches or chari. Types of grafts A vein from your own legs or arms can be used as a blood vessel graft. Blood vessel linda ts often come from your own leg. Vein grafts work better in long leg blockages that start fr omyour groin and extend belowyour knee. Manmade (synthetic) grafts are materials that your bodyeasily accepts. These grafts wo rk best on arteries at or above the knee. Types of peripheral bypasses The type of bypass depends on where your artery is blocked. Risks and complications Bleeding or blood clots Urgent need for surgery again if graft is blocked by clot or debris Graft blockage Heart attack or stroke Breathing problems Infection Need for second bypass or surgery to remove tissue (amputation) Nerve damage and numbness Complications from anesthesia Date Last Reviewed: 08/20/201519994511-6445 [employer]. [address] [place] [address], [place] [address]. All righ ts reserved. This information is not intended as a substitute for professional medical care. Always follow your healthcare professional's instructions. documented in this encounter Medications at Time of Discharge + + + +---------+ + + | Medication | Sig | Dispensed | Refills | Start | End Date | | | | | | Date | | + + + +---------+ + + | acetaminophen | Take 2 tablets by | 120 | 0 | 11/26/19 | | | (TYLENOL) 325 mg | mouth every 4 hours | tablet | | 18 | | | tablet | as needed for Pain | | | | | | | (or fever >= 38.6 C | | | | | | | (101.5 F)). | | | | | + + + +---------+ + + | | Take 3 mLs by | 360 mL | 0 | 11/26/19 | | | albuterol-ipratropiu | nebulization every 4 | | | 18 | | | m 2.5-0.5 mg/3 mL | hours as needed. | | | | | | SOLN | | | | | | + + + +---------+ + + | aspirin 81 mg | Chew and swallow 1 | 30 | 1 | 04/22/19 | | | chewable tablet | tablet Daily. | tablet | | 20 | | + + + +---------+ + + | atorvaSTATin | Take 40 mg by mouth | | 0 | | | | (LIPITOR) 40 mg | nightly. | | | | | | tablet | | | | | | + + + +---------+ + + | cadexomer iodine | Cleanse wounds with | 100 g | 0 | 04/22/19 | | | (IODOSORB) 0.9 % gel | saline, apply gel to | | | 20 | | | | wound base, cover | | | | | | | with dry gauze, | | | | | | | followed by roll | | | | | | | gauze to secure. | | | | | | | Prevalon boot. | | | | | + + + +---------+ + + | carvedilol (COREG) | Take 1 tablet by | 60 | 1 | 04/21/19 | | | 6.25 mg tablet | mouth 2 times daily | tablet | | 20 | | | | (with breakfast & | | | | | | | dinner). | | | | | + + + +---------+ + + | clopidogrel | Take 1 tablet by | 30 | 1 | 04/22/19 | | | (PLAVIX) 75 mg | mouth Daily. | tablet | | 20 | | | tablet | | | | | | + + + +---------+ + + | diclofenac | Apply 4 g topically | 100 g | 1 | 04/21/19 | | | (VOLTAREN) 1% GEL | 4 times daily. | | | 20 | | + + + +---------+ + + | docusate sodium | Take 200 mg by mouth | 30 | 0 | 11/27/19 | | | (COLACE) 100 MG | Daily. | capsule | | 18 | | | capsule | | | | | | + + + +---------+ + + | DULoxetine | Take 30 mg by mouth | | 0 | | | | (CYMBALTA) [address] | 2 times daily. | | | | | | capsule | | | | | | + + + +---------+ + + | dutasteride | Take 1 capsule by | 30 | 1 | 04/21/19 | | | (AVODART) 0.5 mg | mouth Daily. | capsule | | 20 | | | capsule | | | | | | + + + +---------+ + + | gabapentin | Take 800 mg by mouth | | 0 | | | | (NEURONTIN) 400 mg | 3 times daily. | | | | | | capsule | | | | | | + + + +---------+ + + | insulin glargine | Inject 30 Units | | 0 | | | | (LANTUS) 100 | under the skin 2 | | | | | | units/mL injection | times daily. | | | | | | (vial) | | | | | | + + + +---------+ + + | insulin lispro | Inject 0-12 Units | 3 mL | 0 | 11/26/19 | | | (HUMALOG KWIKPEN) | under the skin 4 | | | 18 | | | 100 units/mL | times daily (with | | | | | | injection (pen) | meals and nightly). | | | | | | | Blood Glucose (BG) < | | | | | | | | | | | | | | 150: | | | | | | | None | | | | | | | BG 150-200: DAY: 2 | | | | | | | units. NIGHT: | | | | | | | 0 units BG | | | | | | | 201-250: DAY: 4 | | | | | | | units. NIGHT: | | | | | | | 2 units BG | | | | | | | 251-300: DAY: 6 | | | | | | | units. NIGHT: | | | | | | | 4 units BG | | | | | | | 301-350: DAY: 8 | | | | | | | units. NIGHT: | | | | | | | 6 units BG | | | | | | | 351-400: DAY: 10 | | | | | | | units. NIGHT: 8 | | | | | | | units BG > | | | | | | | 400 : DAY: | | | | | | | 12 units. NIGHT: | | | | | | | 10 units | | | | | + + + +---------+ + + | losartan (COZAAR) | Take 1 tablet by | 30 | 1 | 04/22/19 | | | 25 mg tablet | mouth Daily. | tablet | | 20 | | + + + +---------+ + + | omeprazole | Take 20 mg by mouth | | 0 | | | | (PRILOSEC) 20 mg | every morning | | | | | | capsule | (before breakfast). | | | | | + + + +---------+ + + | ondansetron | Take 1-2 tablets by | 20 | 0 | 04/21/19 | | | (ZOFRAN ODT) 4 mg | mouth every 6 hours | tablet | | 20 | | | disintegrating | as needed for Nausea | | | | | | tablet | or Vomiting. | | | | | + + + +---------+ + + | oxyCODONE | Take 1-2 tablets by | 20 | 0 | 04/21/19 | | | (ROXICODONE) 5 mg | mouth every 4 hours | tablet | | 20 | | | tablet | as needed for Pain. | | | | | + + + +---------+ + + | potassium chloride | Take 1 tablet by | 30 | 0 | 04/21/19 | | | (KLOR-CON) 10 mEq | mouth Daily. | tablet | | 20 | | | CR tablet | | | | | | + + + +---------+ + + | sAXagliptin | Take 5 mg by mouth | | 0 | | | | (ONGLYZA) 5 mg TABS | Daily. | | | | | | tablet | | | | | | + + + +---------+ + + | senna (SENOKOT) | Take 1 tablet by | 120 | 0 | 11/26/19 | | | 8.6 mg tablet | mouth Twice daily | tablet | | 18 | | | | as needed for | | | | | | | Constipation. | | | | | + + + +---------+ + + | tamsulosin | Take 1 capsule by | 60 | 0 | 04/21/19 | | | (FLOMAX) 0.4 mg CAPS | mouth 2 times daily. | capsule | | 20 | | + + + +---------+ + + | torsemide | Take 1 tablet by | 30 | 1 | 04/22/19 | | | (DEMADEX) 20 mg | mouth Daily. | tablet | | 20 | | | tablet | | | | | | + + + +---------+ + + | trolamine | Apply topically | | 0 | 11/26/19 | | | salicylate | every 4 hours as | | | 18 | | | (ASPERCREME) 10% | needed for Pain. | | | | | | cream | | | | | | + + + +---------+ + + | | Inject 3.375 g into | 1 each | 0 | 04/20/19 | | | piperacillin-tazobac | the vein every 6 | | | 20 | 0 | | guerra (ZOSYN) IVPB | hours for 33 days. | | | | | | (custom doses) 3.375 | Indications: | | | | | | gIndications: | Infection of Bone | | | | | | Osteomyelitis | and Bone Marrow | | | | | + + + +---------+ + + | vancomycin IVPB | Inject 1.75 g into | 1 each | 0 | 04/20/19 | | | 1.75 gIndications: | the vein every 24 | | | 20 | 0 | | Osteomyelitis | hours for 33 days. | | | | | | | Indications: | | | | | | | Infection of Bone | | | | | | | and Bone Marrow | | | | | + + + +---------+ + + documented as of this encounter Progress Notes Vladimir Chapin RN - 04/21/2019 2:39 PM PSTNurse to nurse report called to Dolores Sheldon, all questions addressed, pt left unit via wheelchair escort Electronically signed by: Vladimir Chapin RN 04/21/2019 2:40 PM Bhanu Wakefield PA-C - 04/21/2019 8:[address] [facility] Service: Vascular Surgery Progress Note SUBJECTIVE Patient Summary: 74 y.o. man with complex medical issues and LE ischemic ulcers, he wa s recently admitted to the [facility] from 03/28/19 to 04/04/19 where he was treated/ diagnosed with systolic heart failure, type 2 VA/NSTEMI, SHAE, ARF. O2 desaturation brought him from SNF to [facility] and current admission today with CHF and +tropo olivia. He is on IV heparin for his cardiac condition. Strep. agalactiae bacteremia, likely disseminated from patient non-healing diabetic foot ul cers. Patient currently being treated with oral Augmentin for this. Patient had undergone bedside debridement with Dr. Ceballos (podiatry). Events Overnight: POD 3 from right femoral artery to popliteal artery bypass using cry ovein. Signals intact. Plans to discharge today. WENDY drains removed today. OBJECTIVE Vital Signs: Vitals: 04/21/19 0759 BP: 131/67 Pulse: 62 Resp: 18 Temp: 35.9 C (96.7 F) Physical Exam Constitutional: Well nourished, no signs of distress HENT: Non icteric sclerae, oropharynx clear. Cardiovascular: Normal rate, regular rhythm Pulmonary/Chest: No respiratory distress. Abdominal: Soft. No abdominal distension or tenderness. No abdominal pulsatile mass noted. Musculoskeletal: Normal range of motion. No evidence of arthritis. Neurological: Alert and oriented. No muscle weakness and normal gait. VASCULAR: Palpable femoral pulse bilaterally. Wounds to bilateral feet, dressings on and dr montoya Dopplerable DP bilaterally. Right heel ulcer. Left lateral eschar. Right groin wound with dressing intact. WENDY drain to right groin with serosanguinous drainage. Right medial calf wo und with dressing intact and WENDY with serosanguinous drainage. WENDY drains removed today. Dress ings replaced. Labs: Lab Results Component Value Date WBC 12.42 (H) 04/19/2019 HGB 10.0 (L) 04/19/2019 HCT 30.9 (L) 04/19/2019 PLT 324 04/19/2019 CHOL 55 04/06/2019 TRIG 78 04/06/2019 HDL 26 (L) 04/06/2019 LDL 13 04/06/2019 ALT 18 04/09/2019 AST 18 04/09/2019 NA 134 (L) 04/19/2019 K 4.6 04/19/2019 CL 101 04/19/2019 CREA 1.0 04/19/2019 BUN 25 04/19/2019 CO2 29 04/19/2019 INR 1.2 04/06/2019 GLUF 197 (A) 08/21/2018 PROBLEM LIST Patient Active Problem List Diagnosis Date Noted POA Essential hypertension 11/25/2017 Yes Priority: High Insulin dependent diabetes mellitus 11/22/2017 Yes Priority: High Peripheral vascular disease 11/22/2017 Yes Priority: High Osteomyelitis of right foot 11/22/2017 Unknown Priority: High Class 1 obesity with serious comorbidity in adult 11/22/2017 Yes Priority: High Gross hematuria 04/08/2019 Yes Hypomagnesemia 04/07/2019 Yes NSTEMI (non-ST elevated myocardial infarction) 04/06/2019 Unknown Acute decompensated heart failure 04/06/2019 Unknown Acute respiratory failure 04/06/2019 Unknown Bacteremia 04/06/2019 Unknown History of stroke 04/06/2019 Unknown Chronic pain 04/06/2019 Unknown Other osteomyelitis of right foot 04/05/2019 Unknown Acute osteomyelitis of calcaneum, right 07/14/2018 Unknown Sepsis 11/19/2017 Unknown Hypokalemia 05/15/2016 Unknown GERD (gastroesophageal reflux disease) 05/15/2016 Yes Acute left hemiparesis 05/14/2016 Unknown Ischemic stroke diagnosed during current admission 05/14/2016 Unknown Moderate protein-calorie malnutrition 05/14/2016 Unknown Received intravenous tissue plasminogen activator (tPA) in emergency department 017 Unknown Type 2 diabetes mellitus 05/14/2016 Unknown ASSESSMENT & PLAN Peripheral arterial disease / Bilateral gangrenous wounds of feet - POD 3 from right femora l artery to below knee popliteal artery bypass using cryopreserved cadaveric vein. Signals a t right DP intact. Continue to monitor. Out of bed to chair. Continue PT/OT. Anticipate disc harge today. Stable from surgical standpoint to discharge to rehab. Continue ASA. Continue P lavix. Follow up in Vascular clinic in two weeks with ultrasound. Code Status: Full code Bhanu Seaman PA-C Vascular Surgery Regla Crum RN - 04/21/2019 6:20 AM PSTHydrocodone x 1 given PRN pain. WENDY right groin to bulb suction, o utput of 35, WENDY drain to bulb suction Rt lower leg output of 25. Miller catheter to gravity. Hourly rounding uneventful End of shift chart check complete ujj, Vladimir Stover RN - 04/20/2019 6:10 PM PSTA/O, VSS, turning/repositioning freq uently, makes needs known, IV abx, PICC RUE, d/c tomorrow Chart check complete Electronically signed by: Vladimir Chapin RN 04/20/2019 6:11 PM Hannah Holliday RN - 04/20/2019 4:[address] [facility] Service: Wound Care Follow Up Note Hospital Day: 14 Post-Op Day: 11/21/2017 SUBJECTIVE Patient Summary: Wound care in for f/u to bilateral feet ulcers. S/p right lower ext remity bypass with Dr. Robbins, anticipated discharge tomorrow back to SNF. Podiatry has re-con sulted and recommend continued wound care. Positive osteo to both wounds. OBJECTIVE 04/20/19 1609 Visit Information Visit Type Wound re-assessment Pain/Comfort Presence Of Pain denies pain/discomfort Wound 11/19/17 1720 Diabetic Ulcer Left lateral foot ulceration, arterial Placement Date/Time: 11/19/17 172 Primary Wound Type: Diabetic Ulcer Side: Left [place] ation: lateral Location: foot Wound Subtype: ulceration, arterial Additional Comments: 1 cm x 3 cm Base black eschar Periwound Area intact Wound Length (cm) 6.4 cm Wound Width (cm) 3.8 cm Wound Depth (cm) 1 cm Wound Surface Area (cm^2) 24.32 cm^2 Wound Volume (cm^3) 24.32 cm^3 Drainage Amount none Wound Cleaning cleansed with;sterile normal saline Wound Interventions off-loading;antimicrobial gel (Iodosorb) Dressing dressing changed:;antimicrobial;foam Periwound Care barrier film applied Wound Bed % Eschar 76-100% Wound Image Wound 11/19/171719 Pressure Injury Right heel Placement Date/Time: 11/19/171719 Primary Wound Type: Pressure Injury Side: Right Loca tion: heel Additional Comments: Ulcer 4x5 mm Base pink Wound Base Comment smooth/shiny; colonized Edges callused Wound Length (cm) 4.6 cm Wound Width (cm) 6 cm Wound Depth (cm) 1 cm Wound Surface Area (cm^2) 27.6 cm^2 Wound Volume (cm^3) 27.6 cm^3 Drainage Characteristics/Odor ordaz;serosanguineous Drainage Amount small Wound Cleaning cleansed with;sterile normal saline Wound Interventions off-loading;antimicrobial gel (iodosorb) Dressing foam;antimicrobial Periwound Care barrier film applied Wound Image Visit Summary Next Wound/Ostomy Visit Date 04/27/19 PROBLEM LIST Patient Active Problem List Diagnosis Sepsis Insulin dependent diabetes mellitus Peripheral vascular disease Osteomyelitis of right foot Class 1 obesity with serious comorbidity in adult Essential hypertension Acute left hemiparesis Acute osteomyelitis of calcaneum, right Hypokalemia GERD (gastroesophageal reflux disease) Ischemic stroke diagnosed during current admission Moderate protein-calorie malnutrition Received intravenous tissue plasminogen activator (tPA) in emergency department Type 2 diabetes mellitus NSTEMI (non-ST elevated myocardial infarction) Acute decompensated heart failure Acute respiratory failure Bacteremia History of stroke Chronic pain Hypomagnesemia Gross hematuria Other osteomyelitis of right foot ASSESSMENT & PLAN Continue with iodosorb to both ulcerations and prevalon boots for offloading. Thank you for allowing me to participate in the care of this patient. Hannah Anaya RN, CWON 16:41 Grover Shaver M D - 04/20/2019 2:[address] [facility] Service: Hospitalist Progress Note Pt: Reagan Shepard AGE/SEX: 74 y.o. male ROOM: 9119/9119-01 : 1945 PCP: Jamar Manuel MD ADMIT DATE: 04/06/2019 TODAY'S DATE: 04/20/2019 Hospital Day/Hospital Course: LOS: 14 days Mr. Shepard is a 74-year-old gentleman with a history of bilateral nonhealing diabetic trisha t ulcers, and history of TBI, stroke, insulin dependent DM, who presents with CHF exacerbati on with hospital course complicated by gross hematuria. Recent history notable for admit to [facility] from 03/28/19 to 04/04/2019 for CHF exacerbation with eventual dischar ge to [facility]. He then re-presented to same hospital due to worsening SOB and again found to have CHF exacerbation though this time with elevated troponin to 0.17. Dr. Ruelas w as called and accepted the patient in transfer as a consulting physician and hospitalist ser vice called to admit the patient for further work-up and treatment. Patient also found to gee ve streptococcal agalactiae bacteremia thought to be secondary to nonhealing diabetic foot u lcers. ID consulted and has been assisting with antimicrobial regimen. Dr. Ruelas recommend medical management and work-up for anemia which revealed profound iron deficiency for which he completed a course of IV iron.Vascular surgery consulted and patient underwent femoral to peroneal artery bypass surgery for critical limb ischemia on 04/[address] Robbins. Patient sub sequently re-evaluated by podiatry who recommended wound care and outpatient follow up; no d ebridement or amputation necessary. Hospital course also complicated by gross hematuria requ iring CBI and urology consult; now resolved. SUBJECTIVE: Patient feeling well today without acute complaints. Denies fevers, chest pain. Now off sup plemental oxygen. Denies dyspnea. Scheduled Medications: aspirin 81 mg Oral Daily atorvaSTATin 10 mg Oral Nightly cadexomer iodine Topical Every Other Day carvedilol 6.25 mg Oral BID WC clopidogrel 75 mg Oral Daily diclofenac 4 g Topical 4x Daily DULoxetine 60 mg Oral Daily dutasteride 0.5 mg Oral Daily gabapentin 300 mg Oral TID heparin 5,000 Units Subcutaneous 2 times per day insulin glargine 30 Units Subcutaneous QAM insulin lispro 0-18 Units Subcutaneous TID WC lidocaine 1 patch Transdermal Daily losartan 25 mg Oral Daily magnesium oxide 400 mg Oral Daily piperacillin-tazobactam 3.375 g Intravenous Q8H 27-0.8 mg multivitamin 1 tablet Oral Daily psyllium 1 packet Oral TID tamsulosin 0.4 mg Oral BID torsemide 20 mg Oral Daily vancomycin 1,750 mg Intravenous Q24H vancomycin per pharmacy Other Pharmacy Consult Continuous Infusions dextrose 10% electrolyte-A 20 mL/hr at 04/18/19 1520 phenylephrine PRN Medications acetaminophen, albuterol, Hypoglycemia Management AND POCT Glucose AND dextrose A ND dextrose 10%, dextrose, fentaNYL (PF), hydrALAZINE, HYDROcodone-acetaminophen, lactulos e, menthol throat lozenges, metoclopramide OR metoclopramide, ondansetron, ondansetron, oxyCODONE, prochlorperazine, prochlorperazine Allergy: No Known Allergies OBJECTIVE: Vitals: BP 140/64 | Pulse 80 | Temp 37.8 C (100 F) (Axillary) | Resp 24 | Ht 1.778 m (5' 10 ") | Wt 106.8 kg (235 lb 7.2 oz) | SpO2 94% | BMI 33.78 kg/m I&O Detailed Table: Intake/Output Summary (Last 24 hours) at 04/20/2019 1416 Last data filed at 04/20/2019 0930 Gross per 24 hour Intake 805 ml Output 375 ml Net 430 ml Patient Vitals for the past 96 hrs: Weight 04/20/19 0323 106.8 kg (235 lb 7.2 oz) 04/19/19 0348 103 kg (227 lb 1.2 oz) 04/18/19 0340 99.5 kg (219 lb 5.7 oz) 04/17/19 0513 99.6 kg (219 lb 9.3 oz) Physical Examination: GEN: elderly male in no apparent distress HEAD: normocephalic EYES: no conjunctival icterus or injection ENT: MMM NECK: supple CV: warm and well perfused RESP: no increased work of breathing on ambient air ABD: soft, NT/ND, BS+, no obvious masses/organomegaly SKIN: no rashes MSK: normal muscle bulk and tone PSYCH: mood is good, affect congruent NEURO: grossly non-focal LABS: BMP 134* 101 25 183* 4.6 29 1.0 CaMgPhos 8.0* 2.1 LFT 18 70 18 2.0* CBC 12.42* 10.0* 324 30.9* Coag 34* 1.2 Last labs from current encounter as of 01/31/20-14:16 IMAGING: Reviewed in [facility], no new results. PROBLEM LIST Principal Problem: Bacteremia Active Problems: Insulin dependent diabetes mellitus Peripheral vascular disease Class 1 obesity with serious comorbidity in adult Essential hypertension Acute left hemiparesis GERD (gastroesophageal reflux disease) NSTEMI (non-ST elevated myocardial infarction) Acute decompensated heart failure Acute respiratory failure History of stroke Chronic pain Hypomagnesemia Gross hematuria Other osteomyelitis of right foot Resolved Problems: * No resolved hospital problems. * ASSESSMENT & PLAN PAD Vascular surgery consulted and performed angiograms 04/11 and 04/13. Patient also underwent f emoral to peroneal artery bypass for critical limb ischemia on 04/[address] Robbins. -vascular surgery consulted -continue ASA, statin Acute hypoxic respiratory failure secondary to systolic CHF exacerbation Echo 11/2017 with normal EF. Serial xrays during this hospitalization showing hypoventillati on and volume overload. Switched to torsemide 04/14. Repeat echo 04/14 showing EF 50%, grade I I DD, severely dilated LA. Doing well and stable on room air. -continue torsemide, ARB, BB -strict Is&Os, daily weights, telemetry -IS ordered Elevated troponin Likely secondary to demand ischemia from CHF and anemia, now asymptomatic. Echo 04/14 with n oted hypokinesis of the distal inferior wall as well as part of the apex of the LV. Stress t est done 04/16 showing inferior defect with partial improvement at rest, interventional cardi ology consulted and recommend continued medical management at this time. -cardiology consulted, continue medical management -continue ASA, statin, ARB, BB Anemia Iron panel consistent with IBIS, now s/p 3 days of IV iron, stool guaiac negative. Discussed with cardiology who based on above cardiac hx recommend goal Hgb >10. -2u pRBC on 04/15 + 1u pRBC on 04/16 -goal Hgb >10 per cardiology -follow up as outpatient to ensure up to date with age appropriate cancer screening Recent strep bacteremia Received 8 days of IV antibiotics at [facility] discharged home on with augmentin, now readmitted on 04/06 at [facility] and started on rocephin after sending 2 set of bl ood cultures which remain negative. Wound culture grew Enterobacter and Enterococcus faecali s so patient broadened to zosyn. -ID consulted, antibx per them -follow up blood/wound cultures Bilateral foot ulcers Uncertain healing potential per podiatry although at this time they do not recommend furthe r debridement or amputation. They recommend ongoing wound care evaluation. -podiatry consulted -wound care consulted Gross hematuria / urinary incontinence Likely secondary to traumatic miller, s/p CBI, now resolved and patient voiding spontaneousl y without miller. Patient underwent cystoscopy with evacuation of bladder clots and placement of miller catheter with CBI by Dr. Montiel on 04/10/19. -continue flomax BID Obstipation: resolved, continue lactulose HTN: normotensive, continue above meds TII DM: HgA1c of 7.8, continue lantus 30u and LDISS PPx: SQH Code status: Full Dispo: back to [facility] pending recovery from vascular bypass surgery (okay to go [facility] vascular surgery perspective), final ID recs, tentatively planning for ~04/21 Grover Charles MD 2:16 PM 04/20/2019 Portions of this chart may have been copied from previous notes for continuity of care purp ose unshine Love R PH - 04/20/2019 1:53 PM PST Vancomycin Dosing Per Pharmacy Subjective/Objective Reagan Shepard is a 74 y.o. male started on vancomycin 04/11 for MRSA osteomyelitis o f heel. ID has been consulted for antimicrobial management. Per ID note 04/20, patient will d ischarge on vancomycin therapy with levels twice weekly. Additional antimicrobials: zosyn Quadriplegic/Paraplegic: no Diabetes: yes Baseline Serum Creatinine: 0.8 to 09 mg/dL Current Vital Signs: BP 140/64 | Pulse 80 | Temp 37.8 C (100 F) (Axillary) | Resp 24 | Ht 1.778 m (5' 10") | Wt 106.8 kg (235 lb 7.2 oz) | SpO2 94% | BMI 33.78 kg/m Recent Labs Lab 04/19/19 0527 04/18/19 0356 04/17/19 1230 04/17/19 0520 04/15/19 0752 WBC 12.42* 8.12 -- 10.10 < > -- VANCOTROUGH -- -- 17.2 -- -- 23.9* CREA 1.0 0.89 -- 0.7 < > -- < > = values in this interval not displayed. Estimated Creatinine Clearance: 82 mL/min (based on SCr of 1 mg/dL). Vancomycin Dosing History Date Dosing Regimen Admin Times Trough SCr Comments Day 04/11 2250 mg IV loading dose 1250 mg IV Q12H Planned 1130; Not Given 2348 0.9 Please note, vancomycin load of 2250 mg was ordered but never given. Per MAY, o mitted because patient unavailable. Day 2 04/12 1250 mg Q12H 1442 0.8 Dose planned for 1230 hung late due to issues with line ac cess. Loading dose ordered yesterday missed, will give one time increased dose ~12 hours fro m dose this afternoon to target trough of 15-20 mcg/mL Day 04/13 2000 mg IV ONCE 1250 mg IV Q12H 0206 1600- given late 2106 Planned @1330 - not drawn due to procedure 0.7 Spoke with RN to ask why 1330 vancomycin jessica norwoodel had not been drawn. Per RN, patient in procedure until 1500. Will time next dose for th is morning and check a level tomorrow given stable renal function. Day 04/14 1020 2126 Planned @0300 Drawn at 0453 20.6 Patient is also on Zosyn and nurses are putting off doses if Zosyn is infusing. Wo uld be really helpful if we could get a second line and I did communicate that to nurse. Also note this is an 8 hr level from last dose Day 04/15 Change to 1750 mg IV Q24H 1428 23.9 @ 0752 Patient now with PICC line and PIV The resulting level was drawn 10 hr from last dose. Increasing difficultly dosing vancomyci n due to multiple missed and late doses. Note surgery planned for Tuesday for bypass of RL E due to limb ischemia Day 6 04/16 1750 mg Q24H 1441 0.7 Day 7 04/17 1750 mg Q24H 1354 17.2 @1230 0.7 Day 8 04/18 1750 mg Q24H 1449 0.89 Called OR, confirmed patient will get dose during surgery today. Day 04/19 1750 mg Q24H 1409 1.0 Day 10 04/20 1750 mg Q24H 1344 18.3 @1300 N/A *SCr = mg/dL [vanco] = mcg/mL Assessment/Plan Vancomycin level this afternoon within goal of 15-20 mcg/mL. Continue vancomycin 1750 mg Q2 4H. Plan for level: 2/3 @1300 Pharmacy will continue to follow and make adjustments to vancomycin therapy as indicated. Thank You, Rosendo SquiresD, [facility] 04/20/19 1:52 PM Nandini Sánchez se, MD - 04/20/2019 8:[address] [facility] Service: Infectious Diseases Progress Note Hospital Day: LOS: 14 days Post-Op Day: 2 Days Post-Op CC: Follow up on osteomyelitis. SUBJECTIVE/OVERNIGHT EVENTS Continues on iv antibiotic therapy. Denies new concerns and denies side effects. Tolerating antibiotics well. No acute events over the last 24 hours. Awaiting discharge planning. Intake/Output Summary (Last 24 hours) at 04/20/2019 0856 Last data filed at 04/20/2019 0325 Gross per 24 hour Intake 1410 ml Output 375 ml Net 1035 ml REVIEW OF SYSTEMS . GI: denies diarrhea. Skin: denies skin rash. Constitutional: denies fever and chills. Respi ratory: denies difficulty breathing. MEDICATIONS: Scheduled Meds: aspirin 81 mg Oral Daily atorvaSTATin 10 mg Oral Nightly cadexomer iodine Topical Every Other Day carvedilol 6.25 mg Oral BID WC clopidogrel 75 mg Oral Daily diclofenac 4 g Topical 4x Daily DULoxetine 60 mg Oral Daily dutasteride 0.5 mg Oral Daily gabapentin 300 mg Oral TID heparin 5,000 Units Subcutaneous 2 times per day insulin glargine 30 Units Subcutaneous QAM insulin lispro 0-18 Units Subcutaneous TID lidocaine 1 patch Transdermal Daily losartan 25 mg Oral Daily magnesium oxide 400 mg Oral Daily piperacillin-tazobactam 3.375 g Intravenous Q8H 27-0.8 mg multivitamin 1 tablet Oral Daily psyllium 1 packet Oral TID tamsulosin 0.4 mg Oral BID torsemide 20 mg Oral Daily vancomycin 1,750 mg Intravenous Q24H vancomycin per pharmacy Other Pharmacy Consult Continuous Infusions: dextrose 10% electrolyte-A 20 mL/hr at 04/18/19 1520 phenylephrine PRN Meds:.acetaminophen, albuterol, Hypoglycemia Management AND POCT Glucose AND de xtrose AND dextrose 10%, dextrose, fentaNYL (PF), hydrALAZINE, HYDROcodone-acetaminophen , lactulose, menthol throat lozenges, metoclopramide OR metoclopramide, ondansetron, ond ansetron, oxyCODONE, prochlorperazine, prochlorperazine PHYSICAL EXAM Vital Signs: BP 116/59 | Pulse 81 | Temp 37.1 C (98.7 F) (Oral) | Resp 20 | Ht 1.778 m (5' 10") | Wt 106.8 kg (235 lb 7.2 oz) | SpO2 93% | BMI 33.78 kg/m Focused exam shows: General exam: No distress, cooperative with exam. HEENT: sclera non-icteric, no visible oral thrush Cardiovascular: regular rate and rhythm Lungs: no tachypnea, clear breath sounds. Mildly decreased at bases Abdomen: no distension, bowel sounds present Extremities/MSK: No edema, no joint effusions Skin: No lesions, normal turgor Neurologic: Awake, cranial nerves intact. Follows commands. Venous access: PICC. LABS: All labs were reviewed. Recent Results (from the past 24 hour(s)) POC Glucose Result Value Ref Range Glucose, POC 209 (H) 65 - 99 mg/dL POC Glucose Result Value Ref Range Glucose, POC 186 (H) 65 - 99 mg/dL POC Glucose Result Value Ref Range Glucose, POC 290 (H) 65 - 99 mg/dL POC Glucose Result Value Ref Range Glucose, POC 300 (H) 65 - 99 mg/dL Microbiology Results (Last 14 Days by Collected Date with Culture/Sensitivity) Procedure Component Value Units Date/Time Culture, Wound, Superficial [[id number]] (Abnormal) (Susceptibility) Collected: 04/06/19 1546 Order Status: Completed Lab Status: Final result Updated: 04/11/19 0828 Specimen: Body Fluid from Heel, Right Special Requests LT FOOT Special Requests Testing performed at [facility];[address] [place] [address];[place] [address] RESULT -- 1+ ENTEROCOCCUS FAECALIS Aminoglycosides (except for high-level resistance testing), cephalosporins, clindamycin, an d trimethoprim-sulfamethoxazole may appear active in vitro but they are not effective clinic ally. RESULT -- 1+ ENTEROBACTER CLOACAE COMPLEX RESULT -- 1+ METHICILLIN RESISTANT S. AUREUS (MRSA) Susceptibility Enterococcus faecalis (1) Antibiotic Interpretation Microscan Method Status Ampicillin Sensitive SUSCEPTIBLE JESSICA Final Penicillin G Sensitive SUSCEPTIBLE JESSICA Final Gent Synergy Resistant RESISTANT JESSICA Final Levofloxacin Sensitive SUSCEPTIBLE JESSICA Final Streptomycin synergy Sensitive SUSCEPTIBLE JESSICA Final Vancomycin Sensitive SUSCEPTIBLE JESSICA Final Enterobacter cloacae complex (2) Antibiotic Interpretation Microscan Method Status Cefazolin Resistant RESISTANT JESSICA Final Cefepime Sensitive SUSCEPTIBLE JESSICA Final Cefoxitin Resistant RESISTANT JESSICA Final Ceftazidime Sensitive SUSCEPTIBLE JESSICA Final Ceftriaxone Sensitive SUSCEPTIBLE JESSICA Final Ciprofloxacin Sensitive SUSCEPTIBLE JESSICA Final Gentamicin Sensitive SUSCEPTIBLE JESSICA Final Levofloxacin Sensitive SUSCEPTIBLE JESSICA Final Tobramycin Sensitive SUSCEPTIBLE JESSICA Final Trimethoprim + Sulfamethoxazole Sensitive SUSCEPTIBLE JESSICA Final Staphylococcus aureus,Methicillin resistant (MRSA) (3) Antibiotic Interpretation Microscan Method Status Clindamycin Resistant RESISTANT JESSICA Final Erythromycin Resistant RESISTANT JESSICA Final Gentamicin Sensitive SUSCEPTIBLE JESSICA Final Levofloxacin Resistant RESISTANT JESSICA Final Moxifloxacin Resistant RESISTANT JESSICA Final Oxacillin Resistant RESISTANT JESSICA Final Tetracycline Resistant RESISTANT JESSICA Final Trimethoprim + Sulfamethoxazole Resistant RESISTANT JESSICA Final Vancomycin Sensitive SUSCEPTIBLE JESSICA Final Testing performed at [facility], [address] [place] [id number] Culture, Wound, Superficial [[id number]] Collected: 04/06/19 1546 Order Status: Completed Lab Status: Final result Updated: 04/08/19 0937 Specimen: Body Fluid from Heel, Right Special Requests RIGHT FOOT Special Requests Testing performed at [facility];[address] [place] [id number] RESULT -- 1+ NORMAL SKIN CELSA ISOLATED RESULT NO FURTHER WORKUP RESULT Testing performed at [facility], [address] [place] [address] Comment: Testing performed at [facility], [address] [place] [id number] Microbiology Results (72 hrs) No results found for the last 72 hours. IMAGING: No new images for review today. ASSESSMENT & PLAN The patient is a 74 y.o.-year-old male with the following problems: Active Hospital Problems Diagnosis Date Noted Essential hypertension 11/25/2017 Priority: High Insulin dependent diabetes mellitus 11/22/2017 Priority: High Peripheral vascular disease 11/22/2017 Priority: High Class 1 obesity with serious comorbidity in adult 11/22/2017 Priority: High Gross hematuria 04/08/2019 Hypomagnesemia 04/07/2019 NSTEMI (non-ST elevated myocardial infarction) 04/06/2019 Acute decompensated heart failure 04/06/2019 Acute respiratory failure 04/06/2019 Bacteremia 04/06/2019 History of stroke 04/06/2019 Chronic pain 04/06/2019 Other osteomyelitis of right foot 04/05/2019 GERD (gastroesophageal reflux disease) 05/15/2016 Acute left hemiparesis 05/14/2016 Resolved Hospital Problems No resolved problems to display. Antibiotic therapy through May 23, 2019. Side effects, duration of therapy, monitorization, follow-up were discussed with the estuardo brown. He will return to ID clinic in 2 weeks. He will get close monitorization of vancomycin levels twice weekly as well as kidney function twice weekly. Clinically stable from ID standpoint. Continue current antibiotic regimen. Repeat CBC and CMP in the am. Follow vancomycin levels. Discussed with attending provider: Grover Charles MD Monitoring toxicity of iv antibiotic therapy, vancomycin, risk medication. Monitoring daily l labs, vancomycin levels. Pharmacy assisting with dosing and monitorization. Discussed with immigration case worker regarding OPAT. Discussed with immigration case worker regarding discharge planning. Dr. Dolan will take over ID service tomorrow. Please call if questions. Hero Richardson MD, MPH Infectious Diseases 04/20/19 heila Cabrera RN - 04/19/2019 7:20 PM PSTEnd of shift chart check complete. Sheila Cabrera RN unshine Love, [facility] - 04/19/2019 3:23 PM PSTFormatting of this note might be different from the arianaa l. Vancomycin Dosing Per Pharmacy Subjective/Objective Reagan Shepard is a 74 y.o. male started on vancomycin 04/11 for MRSA osteomyelitis o f heel. ID has been consulted for antimicrobial management. Additional antimicrobials: zosyn Quadriplegic/Paraplegic: no Diabetes: yes Baseline Serum Creatinine: 0.6 mg/dL Current Vital Signs: BP 97/54 | Pulse 67 | Temp 36.4 C (97.6 F) (Oral) | Resp 22 | Ht 1.778 m (5' 10") | Wt 103 kg (227 lb 1.2 oz) | SpO2 93% | BMI 32.58 kg/m Recent Labs Lab 04/19/19 0527 04/18/19 0356 04/17/19 1230 04/17/19 0520 04/15/19 0752 WBC 12.42* 8.12 -- 10.10 < > -- VANCOTROUGH -- -- 17.2 -- -- 23.9* CREA 1.0 0.89 -- 0.7 < > -- < > = values in this interval not displayed. Estimated Creatinine Clearance: 80 mL/min (based on SCr of 1 mg/dL). Vancomycin Dosing History Date Dosing Regimen Admin Times Trough SCr Comments Day 1 04/11 2250 mg IV loading dose 1250 mg IV Q12H Planned 1130; Not Given 2348 0.9 Please note, vancomycin load of 2250 mg was ordered but never given. Per MAY, o mitted because patient unavailable. Day 2 04/12 1250 mg Q12H 1442 0.8 Dose planned for 1230 hung late due to issues with line ac cess. Loading dose ordered yesterday missed, will give one time increased dose ~12 hours fro m dose this afternoon to target trough of 15-20 mcg/mL Day 3 04/13 2000 mg IV ONCE 1250 mg IV Q12H 0206 1600- given late 2107 Planned @1330 - not drawn due to procedure 0.7 Spoke with RN to ask why 1330 vancomycin jessica weathers had not been drawn. Per RN, patient in procedure until 1500. Will time next dose for th is morning and check a level tomorrow given stable renal function. Day 04/14 1020 2126 Planned @0300 Drawn at 0453 20.6 Patient is also on Zosyn and nurses are putting off doses if Zosyn is infusing. Wo uld be really helpful if we could get a second line and I did communicate that to nurse. Also note this is an 8 hr level from last dose Day 5 04/15 Change to 1750 mg IV Q24H 1428 23.9 @ 0752 Patient now with PICC line and PIV The resulting level was drawn 10 hr from last dose. Increasing difficultly dosing vancomyci n due to multiple missed and late doses. Note surgery planned for Tuesday for bypass of RL E due to limb ischemia Day 6 04/16 1750 mg Q24H 1441 0.7 Day 7 04/17 1750 mg Q24H 1354 17.2 @1230 0.7 Day 8 04/18 1750 mg Q24H 1449 0.89 Called OR, confirmed patient will get dose during surgery today. Day 9 04/19 1750 mg Q24H 1409 1.0 Day 10 04/20 Planned @1300 *SCr = mg/dL [vanco] = mcg/mL Assessment/Plan Current vancomycin maintenance dose: 1750 mg Q24H Scr increased by 0.3 mg/dL over past 48 hours. No urine output documented for today. Concer n for developing SHAE - Patient may need to be switched to SHAE protocol. Dose already given t zohaib, will keep plan to check level tomorrow afternoon and continue to monitor urine output and serum creatinine. Plan for level: 04/20 @1300 Pharmacy will continue to follow and make adjustments to vancomycin therapy as indicated. Thank You, Sunshine Love, PharmD, BCCCP 04/19/19 3:21 PM Grover Shaver MD - 04/19/2019 2:[address] [facility] Service: Hospitalist Progress Note Pt: Reagan Shepard AGE/SEX: 74 y.o. male ROOM: 9119/9119-01 : 1945 PCP: Jamar Manuel MD ADMIT DATE: 04/06/2019 TODAY'S DATE: 04/19/2019 Hospital Day/Hospital Course: LOS: 13 days Mr. Shepard is a 74-year-old gentleman with a history of bilateral nonhealing diabetic trisha t ulcers, and history of TBI, stroke, insulin dependent DM, who presents with CHF exacerbati on with hospital course complicated by gross hematuria. Recent history notable for admit to [facility] from 03/28/19 to 04/04/2019 for CHF exacerbation with eventual dischar ge to [facility]. He then re-presented to same hospital due to worsening SOB and again found to have CHF exacerbation though this time with elevated troponin to 0.17. Dr. Ruelas w as called and accepted the patient in transfer as a consulting physician and hospitalist ángel johnston called to admit the patient for further work-up and treatment. Patient also found to gee ve streptococcal agalactiae bacteremia thought to be secondary to nonhealing diabetic foot u lcers. ID consulted and has been assisting with antimicrobial regimen. Dr. Ruelas recommend medical management and work-up for anemia which revealed profound iron deficiency for which he was started on IV iron.Podiatry and wound care also consulted for bilateral foot ulcers . Hospital course also c/b gross hematuria requiring CBI and urology consult. SUBJECTIVE: Patient feeling well. He hopes he continues to recover following his recent surgery. Remain s on antibiotics. Denies fevers, chest pain. Currently on 2L O2 NC. Denies dyspnea. Scheduled Medications: aspirin 81 mg Oral Daily atorvaSTATin 10 mg Oral Nightly cadexomer iodine Topical Every Other Day carvedilol 6.25 mg Oral BID WC clopidogrel 75 mg Oral Daily diclofenac 4 g Topical 4x Daily DULoxetine 60 mg Oral Daily dutasteride 0.5 mg Oral Daily gabapentin 300 mg Oral TID heparin 5,000 Units Subcutaneous 2 times per day insulin glargine 30 Units Subcutaneous QAM insulin lispro 0-18 Units Subcutaneous TID WC lidocaine 1 patch Transdermal Daily losartan 25 mg Oral Daily magnesium oxide 400 mg Oral Daily piperacillin-tazobactam 3.375 g Intravenous Q8H 27-0.8 mg multivitamin 1 tablet Oral Daily psyllium 1 packet Oral TID tamsulosin 0.4 mg Oral BID torsemide 20 mg Oral Daily vancomycin 1,750 mg Intravenous Q24H vancomycin per pharmacy Other Pharmacy Consult Continuous Infusions dextrose 10% electrolyte-A 20 mL/hr at 04/18/19 1520 phenylephrine PRN Medications acetaminophen, albuterol, Hypoglycemia Management AND POCT Glucose AND dextrose A ND dextrose 10%, dextrose, fentaNYL (PF), hydrALAZINE, HYDROcodone-acetaminophen, lactulos e, menthol throat lozenges, metoclopramide OR metoclopramide, ondansetron, ondansetron, oxyCODONE, prochlorperazine, prochlorperazine Allergy: No Known Allergies OBJECTIVE: Vitals: BP 97/54 | Pulse 67 | Temp 36.4 C (97.6 F) (Oral) | Resp 22 | Ht 1.778 m (5' 10") | Wt 103 kg (227 lb 1.2 oz) | SpO2 93% | BMI 32.58 kg/m I&O Detailed Table: Intake/Output Summary (Last 24 hours) at 04/19/2019 1446 Last data filed at 04/19/2019 0600 Gross per 24 hour Intake 650 ml Output 1970 ml Net -1320 ml Patient Vitals for the past 96 hrs: Weight 04/19/19 0348 103 kg (227 lb 1.2 oz) 04/18/19 0340 99.5 kg (219 lb 5.7 oz) 04/17/19 0513 99.6 kg (219 lb 9.3 oz) 04/16/19 0526 100.3 kg (221 lb 1.9 oz) Physical Examination: GEN: elderly male in no apparent distress HEAD: normocephalic EYES: no conjunctival icterus or injection ENT: MMM NECK: supple CV: warm and well perfused RESP: no increased work of breathing on ambient air ABD: soft, NT/ND, BS+, no obvious masses/organomegaly SKIN: no rashes MSK: normal muscle bulk and tone PSYCH: mood is good, affect congruent NEURO: grossly non-focal LABS: BMP 134* 101 25 183* 4.6 29 1.0 CaMgPhos 8.0* 2.1 LFT 18 70 18 2.0* CBC 12.42* 10.0* 324 30.9* Coag 34* 1.2 Last labs from current encounter as of 04/19/19-14:46 No results for input(s): TROPONIN, BNP in the last 72 hours. IMAGING: Reviewed in EPIC, no new results. PROBLEM LIST Principal Problem: Gross hematuria Active Problems: Insulin dependent diabetes mellitus Peripheral vascular disease Class 1 obesity with serious comorbidity in adult Essential hypertension Acute left hemiparesis GERD (gastroesophageal reflux disease) NSTEMI (non-ST elevated myocardial infarction) Acute decompensated heart failure Acute respiratory failure Bacteremia History of stroke Chronic pain Hypomagnesemia Other osteomyelitis of right foot Resolved Problems: * No resolved hospital problems. * ASSESSMENT & PLAN PAD Vascular surgery consulted and performed angiograms 04/11 and 04/13. Patient also underwent f emoral to peroneal artery bypass for critical limb ischemia on 04/[address] Robbins. -vascular surgery consulted -continue ASA, statin Acute hypoxic respiratory failure secondary to systolic CHF exacerbation Echo 11/2017 with normal EF. Serial xrays during this hospitalization showing hypoventillati on and volume overload. Switched to torsemide 04/14. Repeat echo 04/14 showing EF 50%, grade I I DD, severely dilated LA. On 2L of O2 NC currently however satting high 90s and asymptomati c, does not appear volume overloaded, have asked RN to wean his O2 as able. -continue torsemide, ARB, BB -strict Is&Os, daily weights, telemetry -IS ordered Elevated troponin Likely secondary to demand ischemia from CHF and anemia, now asymptomatic. Echo 04/14 with n oted hypokinesis of the distal inferior wall as well as part of the apex of the LV. Stress t est done 04/16 showing inferior defect with partial improvement at rest, interventional cardi ology consulted and recommend continued medical management at this time. -cardiology consulted, continue medical management -continue ASA, statin, ARB, BB Anemia Iron panel consistent with IBIS, now s/p 3 days of IV iron, stool guaiac negative. Discussed with cardiology who based on above cardiac hx recommend goal Hgb >10. Hgb 9.8 today. -2u pRBC on 04/15 + 1u pRBC on 04/16 -daily cbc, goal Hgb >10 per cardiology -follow up as outpatient to ensure up to date with age appropriate cancer screening Recent strep bacteremia Received 8 days of IV antibiotics at [facility] discharged home on with augmentin, now readmitted on 04/06 at [facility] and started on rocephin after sending 2 set of bl ood cultures which remain negative. Wound culture grew Enterobacter and Enterococcus faecali s so patient broadened to zosyn. -ID consulted, antibx per them -follow up blood/wound cultures Bilateral foot ulcers Uncertain healing potential per podiatry although at this time they do not recommend furthe r debridement or amputation. They recommend ongoing wound care evaluation. -podiatry consulted -wound care consulted Gross hematuria / urinary incontinence Likely secondary to traumatic miller, s/p CBI, now resolved and patient voiding spontaneousl y without miller. Patient underwent cystoscopy with evacuation of bladder clots and placement of miller catheter with CBI by Dr. Montiel on 04/10/19. -continue flomax BID Obstipation: resolved, continue lactulose HTN: normotensive, continue above meds TII DM: HgA1c of 7.8, continue lantus 30u and LDISS PPx: SQH Code status: Full Dispo: back to [facility] pending recovery from vascular bypass surgery, final ID recs , tentatively planning for ~04/21 Grover Charles MD 2:46 PM 04/19/2019 Portions of this chart may have been copied from previous notes for continuity of care purp ose Hero Sánchez MD - 04/19/2019 9:53 AM PSTFormatting of this note might be different from the [facility]: [facility]ious Diseases Progress Note Hospital Day: LOS: 13 days Post-Op Day: 1 Day Post-Op CC: Follow up on osteomyelitis. SUBJECTIVE/OVERNIGHT EVENTS Continues on iv antibiotic therapy. Denies new concerns and denies side effects. Tolerating antibiotics well. No acute events over the last 24 hours. Patient is status post bypass surgery. His wounds are examined today. Intake/Output Summary (Last 24 hours) at 04/19/2019 0953 Last data filed at 04/19/2019 0600 Gross per 24 hour Intake 1650 ml Output 3390 ml Net -1740 ml REVIEW OF SYSTEMS . GI: denies diarrhea. Skin: denies skin rash. Constitutional: denies fever and chills. Respi ratory: denies difficulty breathing. MEDICATIONS: Scheduled Meds: aspirin 81 mg Oral Daily atorvaSTATin 10 mg Oral Nightly cadexomer iodine Topical Every Other Day carvedilol 6.25 mg Oral BID WC clopidogrel 75 mg Oral Daily diclofenac 4 g Topical 4x Daily DULoxetine 60 mg Oral Daily dutasteride 0.5 mg Oral Daily gabapentin 300 mg Oral TID heparin 5,000 Units Subcutaneous 2 times per day insulin glargine 30 Units Subcutaneous QAM insulin lispro 0-18 Units Subcutaneous TID WC lidocaine 1 patch Transdermal Daily losartan 25 mg Oral Daily magnesium oxide 400 mg Oral Daily piperacillin-tazobactam 3.375 g Intravenous Q8H 27-0.8 mg multivitamin 1 tablet Oral Daily psyllium 1 packet Oral TID tamsulosin 0.4 mg Oral BID torsemide 20 mg Oral Daily vancomycin 1,750 mg Intravenous Q24H vancomycin per pharmacy Other Pharmacy Consult Continuous Infusions: dextrose 10% electrolyte-A 20 mL/hr at 04/18/19 1520 phenylephrine PRN Meds:.acetaminophen, albuterol, Hypoglycemia Management AND POCT Glucose AND de xtrose AND dextrose 10%, dextrose, fentaNYL (PF), hydrALAZINE, HYDROcodone-acetaminophen , lactulose, menthol throat lozenges, metoclopramide OR metoclopramide, ondansetron, ond ansetron, oxyCODONE, prochlorperazine, prochlorperazine PHYSICAL EXAM Vital Signs: BP 93/63 | Pulse 67 | Temp 36.6 C (97.8 F) (Oral) | Resp 22 | Ht 1.778 m (5' 10") | Wt 103 kg (227 lb 1.2 oz) | SpO2 98% | BMI 32.58 kg/m Focused exam shows: General exam: No distress, cooperative with exam. HEENT: sclera non-icteric, no visible oral thrush Cardiovascular: regular rate and rhythm Lungs: no tachypnea, clear breath sounds. Mildly decreased at bases Abdomen: no distension, bowel sounds present Extremities/MSK: No edema, no joint effusions. The right heel has no signs of eschar forma tion. There is a large ulceration with out any visible bone. The left foot has a plantar e schar with dry gangrene over the fifth metatarsal area. The fifth toe was absent. Skin: No lesions, normal turgor Neurologic: Awake, cranial nerves intact. Follows commands. Venous access: PICC. LABS: All labs were reviewed. Recent Results (from the past 24 hour(s)) NM Nuclear Stress Test (Vasodilator) Result Value Ref Range BASELINE HEART RATE 72 bpm BASELINE BLOOD PRESSURE 169/84 mmHg PEAK HEART RATE 76 PEAK BLOOD PRESSURE 169/84 mmHG Target HR 126 Percent HR 51 Max Predicted HR 148 LVEF-SPECT NUCLEAR STRESS/VIABILITY 36 % NM stress end diastolic volume 153 NM stress end systolic volume 98 NM rest end diastolic volume 88 NM rest end systolic volume 50 TID VALUE 1.23 POC Glucose Result Value Ref Range Glucose, POC 141 (H) 65 - 99 mg/dL POC Glucose Result Value Ref Range Glucose, POC 181 (H) 65 - 99 mg/dL POC Glucose Result Value Ref Range Glucose, POC 245 (H) 65 - 99 mg/dL POC Glucose Result Value Ref Range Glucose, POC 295 (H) 65 - 99 mg/dL POC Glucose Result Value Ref Range Glucose, POC 178 (H) 65 - 99 mg/dL CBC with Differential Result Value Ref Range WBC 12.42 (H) 3.80 - 11.00 K/uL RBC 4.13 (L) 4.20 - 5.70 M/uL Hemoglobin 10.0 (L) 13.2 - 17.0 g/dL Hematocrit 30.9 (L) 39.0 - 50.0 % MCV 74.9 (L) 80.0 - 100.0 fl MCH 24.3 (L) 27.0 - 34.0 pg MCHC 32.4 32.0 - 35.5 g/dL RDW-SD 72.6 (H) 37 - 53 fl Platelet Count 324 150 - 400 K/uL MPV 9.0 fl Diff Type AUTOMATED % Neutrophils 77.73 % % Lymphocytes 9.60 % Monocyte % 12.22 % Eosinophils % 0.01 % Basophils % 0.44 % Neutrophils, Absolute 9.66 (H) 1.90 - 7.40 K/uL Absolute Lymphocytes 1.19 1.00 - 3.90 K/uL Absolute Monocytes 1.52 (H) 0.00 - 0.80 K/uL Eosinophils, Absolute 0.00 0.00 - 0.50 K/uL Basophils, Absolute 0.06 0.00 - 0.10 K/uL RBC Morphology 2+ Basic Metabolic Panel Result Value Ref Range Na 134 (L) 135 - 145 mmol/L K 4.6 3.5 - 4.9 mmol/L Cl 101 99 - 109 mmol/L CO2 29 23 - 32 mmol/L Anion Gap 9 5 - 20 mmol/L Glucose 183 (H) 65 - 99 mg/dL BUN 25 8 - 25 mg/dL Creatinine 1.0 0.70 - 1.30 mg/dL BUN/Creatinine Ratio 25 Calcium 8.0 (L) 8.5 - 10.5 mg/dL Estimated GFR >60 >60 mL/min/1.73m2 POC Glucose Result Value Ref Range Glucose, POC 176 (H) 65 - 99 mg/dL Microbiology Results (Last 14 Days by Collected Date with Culture/Sensitivity) Procedure Component Value Units Date/Time Culture, Wound, Superficial [[id number]] (Abnormal) (Susceptibility) Collected: 04/06/191545 Order Status: Completed Lab Status: Final result Updated: 04/11/1928 Specimen: Body Fluid from Heel, Right Special Requests LT FOOT Special Requests Testing performed at [facility];[address] [place] [id number] RESULT -- 1+ ENTEROCOCCUS FAECALIS Aminoglycosides (except for high-level resistance testing), cephalosporins, clindamycin, an d trimethoprim-sulfamethoxazole may appear active in vitro but they are not effective clinic ally. RESULT -- 1+ ENTEROBACTER CLOACAE COMPLEX RESULT -- 1+ METHICILLIN RESISTANT S. AUREUS (MRSA) Susceptibility Enterococcus faecalis (1) Antibiotic Interpretation Microscan Method Status Ampicillin Sensitive SUSCEPTIBLE JESSICA Final Penicillin G Sensitive SUSCEPTIBLE JESSICA Final Gent Synergy Resistant RESISTANT JESSICA Final Levofloxacin Sensitive SUSCEPTIBLE JESSICA Final Streptomycin synergy Sensitive SUSCEPTIBLE JESSICA Final Vancomycin Sensitive SUSCEPTIBLE JESSICA Final Enterobacter cloacae complex (2) Antibiotic Interpretation Microscan Method Status Cefazolin Resistant RESISTANT JESSICA Final Cefepime Sensitive SUSCEPTIBLE JESSICA Final Cefoxitin Resistant RESISTANT JESSICA Final Ceftazidime Sensitive SUSCEPTIBLE JESSICA Final Ceftriaxone Sensitive SUSCEPTIBLE JESSICA Final Ciprofloxacin Sensitive SUSCEPTIBLE JESSICA Final Gentamicin Sensitive SUSCEPTIBLE JESSICA Final Levofloxacin Sensitive SUSCEPTIBLE JESSICA Final Tobramycin Sensitive SUSCEPTIBLE JESSICA Final Trimethoprim + Sulfamethoxazole Sensitive SUSCEPTIBLE JESSICA Final Staphylococcus aureus,Methicillin resistant (MRSA) (3) Antibiotic Interpretation Microscan Method Status Clindamycin Resistant RESISTANT JESSICA Final Erythromycin Resistant RESISTANT JESSICA Final Gentamicin Sensitive SUSCEPTIBLE JESSICA Final Levofloxacin Resistant RESISTANT JESSICA Final Moxifloxacin Resistant RESISTANT JESSICA Final Oxacillin Resistant RESISTANT JESSICA Final Tetracycline Resistant RESISTANT JESSICA Final Trimethoprim + Sulfamethoxazole Resistant RESISTANT JESSICA Final Vancomycin Sensitive SUSCEPTIBLE JESSICA Final Testing performed at [facility], [address] [place] [id number] Culture, Wound, Superficial [[id number]] Collected: 04/06/191545 Order Status: Completed Lab Status: Final result Updated: 04/08/1937 Specimen: Body Fluid from Heel, Right Special Requests RIGHT FOOT Special Requests Testing performed at [facility];[address] [place] [id number] RESULT -- 1+ NORMAL SKIN CELSA ISOLATED RESULT NO FURTHER WORKUP RESULT Testing performed at [facility], [address] [place] [phone] Comment: Testing performed at [facility], [address] [place] [id number] Culture, Blood [[id number]] Collected: 04/06/19337 Order Status: Completed Lab Status: Final result Updated: 04/12/1952 Specimen: Peripheral Blood Special Requests R WRIST Special Requests Testing performed at [facility];[address] [place] [address] 76114 RESULT NO GROWTH 6 DAYS RESULT Testing performed at [facility], [address] [place] [address] Comment: Testing performed at [facility], [address] [place] [id number] Culture, Blood [[id number]] Collected: 04/06/19330 Order Status: Completed Lab Status: Final result Updated: 04/12/1952 Specimen: Peripheral Blood Special Requests L WRIST Special Requests Testing performed at [facility];[address] [place] [address] 12174 RESULT NO GROWTH 6 DAYS RESULT Testing performed at [facility], [address] [place] [address] Comment: Testing performed at [facility], [address] [place] [id number] Microbiology Results (72 hrs) No results found for the last 72 hours. IMAGING: No new images for review today. ASSESSMENT & PLAN The patient is a 74 y.o.-year-old male with the following problems: Active Hospital Problems Diagnosis Date Noted Essential hypertension 11/25/2017 Priority: High Insulin dependent diabetes mellitus 11/22/2017 Priority: High Peripheral vascular disease 11/22/2017 Priority: High Class 1 obesity with serious comorbidity in adult 11/22/2017 Priority: High Gross hematuria 04/08/2019 Hypomagnesemia 04/07/2019 NSTEMI (non-ST elevated myocardial infarction) 04/06/2019 Acute decompensated heart failure 04/06/2019 Acute respiratory failure 04/06/2019 Bacteremia 04/06/2019 History of stroke 04/06/2019 Chronic pain 04/06/2019 Other osteomyelitis of right foot 04/05/2019 GERD (gastroesophageal reflux disease) 05/15/2016 Acute left hemiparesis 05/14/2016 Resolved Hospital Problems No resolved problems to display. 1. Chronic osteomyelitis of the right calcaneus 2. Osteomyelitis of the left fifth metatarsal 3. Severe peripheral vascular disease of both lower extremities 4. Polymicrobial bacterial infection 5. Gangrene of the left foot 6. MRSA infection. Patient has not recommended additional surgical intervention at this point. He will contin ue with antibiotics for 6 weeks from the left foot osteomyelitis. Eventually, he will have to have amputation on the right due to his calcaneus chronic osteomyelitis. This will be mo nitored over time. Pending placement. Repeat CBC and CMP in the am. Follow vancomycin levels. Discussed with attending provider: Grover Charles MD Monitoring toxicity of iv antibiotic therapy, vancomycin, risk medication. Monitoring daily l labs, vancomycin levels. Pharmacy assisting with dosing and monitorization. Hero Richardson MD, MPH Infectious Diseases 04/19/19 Yeol Wakefield PA-C - 04/19/2019 9:21 AM PSTFormatting of this note might be different from the o riginal. [facility] Service: Vascular Surgery Progress Note SUBJECTIVE Patient Summary: 74 y.o. man with complex medical issues and LE ischemic ulcers, he wa s recently admitted to the [facility] from 03/28/19 to 04/04/19 where he was treated/ diagnosed with systolic heart failure, type 2 VA/NSTEMI, SHAE, ARF. O2 desaturation brought him from SNF to [facility] and current admission today with CHF and +tropo olivia. He is on IV heparin for his cardiac condition. Strep. agalactiae bacteremia, likely disseminated from patient non-healing diabetic foot ul cers. Patient currently being treated with oral Augmentin for this. Patient had undergone bedside debridement with Dr. Ceballos (podiatry). Events Overnight: POD 1 from right femoral artery to popliteal artery bypass using cry ovein. Signals intact this am but faint. OBJECTIVE Vital Signs: Vitals: 04/19/19 0842 BP: 93/63 Pulse: 67 Resp: Temp: Physical Exam Constitutional: Well nourished, no signs of distress HENT: Non icteric sclerae, oropharynx clear. Cardiovascular: Normal rate, regular rhythm Pulmonary/Chest: No respiratory distress. Abdominal: Soft. No abdominal distension or tenderness. No abdominal pulsatile mass noted. Musculoskeletal: Normal range of motion. No evidence of arthritis. Neurological: Alert and oriented. No muscle weakness and normal gait. VASCULAR: Palpable femoral pulse bilaterally. Wounds to bilateral feet, dressings on and dr lindsay Dopplerable DP bilaterally. Right heel ulcer. Left lateral eschar. Right groin wound with dressing intact. WENDY drain to right groin with serosanguinous drainage. Right medial calf wo und with dressing intact and WENDY with serosanguinous drainage. Labs: Lab Results Component Value Date WBC 12.42 (H) 04/19/2019 HGB 10.0 (L) 04/19/2019 HCT 30.9 (L) 04/19/2019 PLT 324 04/19/2019 CHOL 55 04/06/2019 TRIG 78 04/06/2019 HDL 26 (L) 04/06/2019 LDL 13 04/06/2019 ALT 18 04/09/2019 AST 18 04/09/2019 NA 134 (L) 04/19/2019 K 4.6 04/19/2019 CL 101 04/19/2019 CREA 1.0 04/19/2019 BUN 25 04/19/2019 CO2 29 04/19/2019 INR 1.2 04/06/2019 GLUF 197 (A) 08/21/2018 PROBLEM LIST Patient Active Problem List Diagnosis Date Noted POA Essential hypertension 11/25/2017 Yes Priority: High Insulin dependent diabetes mellitus 11/22/2017 Yes Priority: High Peripheral vascular disease 11/22/2017 Yes Priority: High Osteomyelitis of right foot 11/22/2017 Unknown Priority: High Class 1 obesity with serious comorbidity in adult 11/22/2017 Yes Priority: High Gross hematuria 04/08/2019 Yes Hypomagnesemia 04/07/2019 Yes NSTEMI (non-ST elevated myocardial infarction) 04/06/2019 Unknown Acute decompensated heart failure 04/06/2019 Unknown Acute respiratory failure 04/06/2019 Unknown Bacteremia 04/06/2019 Unknown History of stroke 04/06/2019 Unknown Chronic pain 04/06/2019 Unknown Other osteomyelitis of right foot 04/05/2019 Unknown Acute osteomyelitis of calcaneum, right 07/14/2018 Unknown Sepsis 11/19/2017 Unknown Hypokalemia 05/15/2016 Unknown GERD (gastroesophageal reflux disease) 05/15/2016 Yes Acute left hemiparesis 05/14/2016 Unknown Ischemic stroke diagnosed during current admission 05/14/2016 Unknown Moderate protein-calorie malnutrition 05/14/2016 Unknown Received intravenous tissue plasminogen activator (tPA) in emergency department 017 Unknown Type 2 diabetes mellitus 05/14/2016 Unknown ASSESSMENT & PLAN Peripheral arterial disease / Bilateral gangrenous wounds of feet - POD 1 from right femora l artery to below knee popliteal artery bypass using cryopreserved cadaveric vein. Signals a t right DP intact. Continue to monitor. Out of bed to chair today. Anticipate discharge in 2 days if he does well. Will need rehab placement upon discharge. Will leave WENDY drains one mo re day. Vascular will continue to follow. Continue ASA. May add plavix as well, will determi ne. Code Status: Full code Bhanu Seaman PA-C Vascular Surgery iki, Rachel Altamirano RN - 04/19/2019 5:46 AM [id number] left foot dressing change complete per order. Patient R groi n site with WENDY intact old drainage marked and unchanged patient reported burning pain BLE st ayed warm and pulses dopplered. Patient on 2L NC. Miller in place. Chart check complete. Leeanne Arias RN ujj, Vladimir Stover RN - 04/18/2019 6:40 PM PSTDrowsy at initial assessment post-op, more alert now, oriented x4, ri ght groin site with WENDY, gauze and transparent dressing in place with some serosanguineous dr dickson (area marked), RLE incision with WENDY, gauze with transparent, scant amount of drainage , dorsales pedis pulses dopplerable BLE, art line L wrist, PICC RUE, PIV x2 RUE, significant left sided weakness and BLE weakness (hx of stroke), IVF continue to infuse, o2 3L NC, fole y in place Chart check complete Electronically signed by: Vladimir Chapin RN 04/18/2019 6:45 PM Grover Shaver MD - 4:[address] [facility] Service: Hospitalist Progress Note Pt: Reagan Shepard AGE/SEX: 74 y.o. male ROOM: [facility] OR INTRA OP POOL/[facility]* : 1945 PCP: Jamar Manuel MD ADMIT DATE: 04/06/2019 TODAY'S DATE: 04/18/2019 Hospital Day/Hospital Course: LOS: 12 days Mr. Shepard is a 74-year-old gentleman with a history of bilateral nonhealing diabetic trisha t ulcers, and history of TBI, stroke, insulin dependent DM, who presents with CHF exacerbati on with hospital course complicated by gross hematuria. Recent history notable for admit to [facility] from 03/28/19 to 04/04/2019 for CHF exacerbation with eventual dischar ge to [facility]. He then re-presented to same hospital due to worsening SOB and again found to have CHF exacerbation though this time with elevated troponin to 0.17. Dr. Ruelas w as called and accepted the patient in transfer as a consulting physician and hospitalist ser vice called to admit the patient for further work-up and treatment. Patient also found to gee ve streptococcal agalactiae bacteremia thought to be secondary to nonhealing diabetic foot u lcers. ID consulted and has been assisting with antimicrobial regimen. Dr. Ruelas recommend medical management and work-up for anemia which revealed profound iron deficiency for which he was started on IV iron.Podiatry and wound care also consulted for bilateral foot ulcers . Hospital course also c/b gross hematuria requiring CBI and urology consult. SUBJECTIVE: Patient interview in AM. Reports feeling well. He is nervous for surgery today. He denies c hest pain, dyspnea. Scheduled Medications: [MAY Hold] amLODIPine 5 mg Oral Daily [MAY Hold] aspirin 81 mg Oral Daily [MAY Hold] atorvaSTATin 10 mg Oral Nightly [MAY Hold] cadexomer iodine Topical Every Other Day [MAY Hold] carvedilol 6.25 mg Oral BID WC [MAY Hold] clopidogrel 75 mg Oral Daily [MAY Hold] diclofenac 4 g Topical 4x Daily [MAY Hold] DULoxetine 60 mg Oral Daily [MAY Hold] dutasteride 0.5 mg Oral Daily [MAY Hold] gabapentin 300 mg Oral TID [MAY Hold] heparin 5,000 Units Subcutaneous 2 times per day [MAY Hold] insulin glargine 30 Units Subcutaneous QAM insulin lispro 0-18 Units Subcutaneous TID WC [May] lidocaine 1 patch Transdermal Daily [May] losartan 50 mg Oral Daily [May] magnesium oxide 400 mg Oral Daily piperacillin-tazobactam 3.375 g Intravenous Once [MAY Hold] piperacillin-tazobactam 3.375 g Intravenous Q8H [May] 27-0.8 mg multivitamin 1 tablet Oral Daily [May] psyllium 1 packet Oral TID [MAY Hold] tamsulosin 0.4 mg Oral BID [May] torsemide 20 mg Oral Daily [MAY Hold] vancomycin 1,750 mg Intravenous Q24H [May] vancomycin per pharmacy Other Pharmacy Consult Continuous Infusions [May] dextrose 10% electrolyte-A 20 mL/hr at 04/18/19 1520 phenylephrine PRN Medications [May] acetaminophen, [MAY Hold] albuterol, albuterol, Hypoglycemia Management AND POCT Glucose AND [May] dextrose AND [May] dextrose 10%, dextrose, [May d] fentaNYL (PF), fentaNYL (PF), hydrALAZINE, [May] HYDROcodone-acetaminophen, HYDROmor phone, [May] lactulose, [May] menthol throat lozenges, metoclopramide OR metoc lopramide, ondansetron OR ondansetron, oxyCODONE, prochlorperazine, prochlorperazine Allergy: No Known Allergies OBJECTIVE: Vitals: BP 134/72 | Pulse 61 | Temp 36.1 C (97 F) (Temporal) | Resp 16 | Ht 1.778 m (5' 10" ) | Wt 99.5 kg (219 lb 5.7 oz) | SpO2 94% | BMI 31.47 kg/m I&O Detailed Table: Intake/Output Summary (Last 24 hours) at 04/18/2019 1652 Last data filed at 04/18/2019 1456 Gross per 24 hour Intake 2622 ml Output 1600 ml Net 1022 ml Patient Vitals for the past 96 hrs: Weight 04/18/19 0340 99.5 kg (219 lb 5.7 oz) 04/17/19 0513 99.6 kg (219 lb 9.3 oz) 04/16/19 0526 100.3 kg (221 lb 1.9 oz) 04/15/19 0325 101.4 kg (223 lb 8.7 oz) Physical Examination: GEN: elderly male in no apparent distress HEAD: normocephalic EYES: no conjunctival icterus or injection ENT: MMM NECK: supple CV: warm and well perfused RESP: no increased work of breathing on ambient air ABD: soft, NT/ND, BS+, no obvious masses/organomegaly SKIN: no rashes MSK: normal muscle bulk and tone PSYCH: mood is good, affect congruent NEURO: grossly non-focal LABS: BMP 135 100 14 156* 4.3 31 0.89 CaMgPhos 8.0* 2.1 LFT 18 70 18 2.0* CBC 8.12 10.6* 289 33.7* Coag 34* 1.2 Last labs from current encounter as of 04/18/19-16:52 No results for input(s): TROPONIN, BNP in the last 72 hours. IMAGING: Reviewed in [facility], no new results. PROBLEM LIST Principal Problem: Gross hematuria Active Problems: Insulin dependent diabetes mellitus Peripheral vascular disease Class 1 obesity with serious comorbidity in adult Essential hypertension Acute left hemiparesis GERD (gastroesophageal reflux disease) NSTEMI (non-ST elevated myocardial infarction) Acute decompensated heart failure Acute respiratory failure Bacteremia History of stroke Chronic pain Hypomagnesemia Other osteomyelitis of right foot Resolved Problems: * No resolved hospital problems. * ASSESSMENT & PLAN PAD Vascular surgery consulted and performed angiograms 04/11 and 04/13 and now are recommending femoral to peroneal artery bypass for critical limb ischemia. -vascular surgery consulted, NPO for bypass surgery today -continue ASA, statin Acute hypoxic respiratory failure secondary to systolic CHF exacerbation Echo 11/2017 with normal EF. Serial xrays during this hospitalization showing hypoventillati on and volume overload. Switched to torsemide 04/14. Repeat echo 04/14 showing EF 50%, grade I I DD, severely dilated LA. Currently stable, on room air, asymptomatic. -continue torsemide, ARB, BB -strict Is&Os, daily weights, telemetry -IS ordered Elevated troponin Likely secondary to demand ischemia from CHF and anemia, now asymptomatic. Echo 04/14 with n oted hypokinesis of the distal inferior wall as well as part of the apex of the LV. Stress t est done 04/16 showing inferior defect with partial improvement at rest, interventional cardi ology consulted and recommend continued medical management at this time. -cardiology consulted, continue medical management -continue ASA, statin, ARB, BB Anemia Iron panel consistent with IBIS, now s/p 3 days of IV iron, stool guaiac negative. Discussed with cardiology who based on above cardiac hx recommend goal Hgb >10. Hgb 9.8 today. -2u pRBC on 04/15 + 1u pRBC on 04/16 -daily cbc, goal Hgb >10 per cardiology -follow up as outpatient to ensure up to date with age appropriate cancer screening Recent strep bacteremia Received 8 days of IV antibiotics at [facility] discharged home on with augmentin, now readmitted on 04/06 at [facility] and started on rocephin after sending 2 set of bl ood cultures which remain negative. Wound culture grew Enterobacter and Enterococcus faecali s so patient broadened to zosyn. -ID consulted -follow up blood/wound cultures Bilateral foot ulcers -podiatry consulted -wound care consulted Gross hematuria / urinary incontinence Likely secondary to traumatic miller, s/p CBI, now resolved and patient voiding spontaneousl y without miller. Patient underwent cystoscopy with evacuation of bladder clots and placement of miller catheter with CBI by Dr. Montiel on 04/10/19. -continue flomax BID Obstipation: resolved, continue lactulose HTN: normotensive, continue above meds TII DM: HgA1c of 7.8, continue lantus 30u and LDISS PPx: SQH Code status: Full Dispo: back to [facility] pending cardiac evaluation/optimization, vascular bypass donna wero, final ID recs, tentatively planning for ~04/21 Grover Charles MD 4:52 PM 04/18/2019 Portions of this chart may have been copied from previous notes for continuity of care purp ose Sunshine Chen R PH - 04/18/2019 2:45 PM PST Vancomycin Dosing Per Pharmacy Subjective/Objective Reagan Shepard is a 74 y.o. male started on vancomycin 04/11 for MRSA osteomyelitis o f heel. ID has been consulted for antimicrobial management. Additional antimicrobials: zosyn Quadriplegic/Paraplegic: no Diabetes: yes Baseline Serum Creatinine: 0.6 mg/dL Current Vital Signs: BP 178/90 | Pulse 65 | Temp 36.5 C (97.7 F) (Oral) | Resp 16 | Ht 1.778 m (5' 10") | Wt 99.5 kg (219 lb 5.7 oz) | SpO2 95% | BMI 31.47 kg/m Recent Labs Lab 04/18/19 0356 04/17/19 1230 04/17/19 0520 04/16/19 0536 04/15/19 0752 WBC 8.12 -- 10.10 11.71* -- VANCOTROUGH -- 17.2 -- -- 23.9* CREA 0.89 -- 0.7 0.7 -- Estimated Creatinine Clearance: 89 mL/min (based on SCr of 0.89 mg/dL). Vancomycin Dosing History Date Dosing Regimen Admin Times Trough SCr Comments Day 1 04/11 2250 mg IV loading dose 1250 mg IV Q12H Planned 1130; Not Given 2348 0.9 Please note, vancomycin load of 2250 mg was ordered but never given. Per MAY, o mitted because patient unavailable. Day 2 04/12 1250 mg Q12H 1442 0.8 Dose planned for 1230 hung late due to issues with line ac cess. Loading dose ordered yesterday missed, will give one time increased dose ~12 hours fro m dose this afternoon to target trough of 15-20 mcg/mL Day 3 04/13 2000 mg IV ONCE 1250 mg IV Q12H 0206 1600- given late 2106 Planned @1330 - not drawn due to procedure 0.7 Spoke with RN to ask why 1330 vancomycin l jasiel had not been drawn. Per RN, patient in procedure until 1500. Will time next dose for th is morning and check a level tomorrow given stable renal function. Day 04/14 1020 2126 Planned @0300 Drawn at 0453 20.6 Patient is also on Zosyn and nurses are putting off doses if Zosyn is infusing. Wo uld be really helpful if we could get a second line and I did communicate that to nurse. Also note this is an 8 hr level from last dose Day 5 04/15 Change to 1750 mg IV Q24H 1428 23.9 @ 0752 Patient now with PICC line and PIV The resulting level was drawn 10 hr from last dose. Increasing difficultly dosing vancomyci n due to multiple missed and late doses. Note surgery planned for Tuesday for bypass of RL E due to limb ischemia Day 6 04/16 1750 mg Q24H 1441 0.7 Day 7 04/17 1750 mg Q24H 1354 17.2 @1230 0.7 Day 8 04/18 1750 mg Q24H Planned 1400 Called OR, confirmed patient will get dose during surger y today. *SCr = mg/dL [vanco] = mcg/mL Assessment/Plan Patient in OR today for right leg bypass surgery. Continue current dosing plan. Current vancomycin maintenance dose: 1750 mg Q24H Plan for level: 04/20 @1300 Pharmacy will continue to follow and make adjustments to vancomycin therapy as indicated. Thank You, Sunshine Love, PharmD, [facility] 04/18/19 2:45 PM Syed López PTA - 04/18/2019 10:26 AM PSTFormatting of this note might be different from the origin al. 04/18/19 1026 General Information Onset of Illness/Injury 04/06/19 PT Clinical Impression PT Diagnosis Acute Decompensated HF, NSTEMI PT Visit Summary PT Visit Type Missed Visit (surgery) Next Visit Information 04/18, deconditoning PT Visit Summary PT attempted to see pt, spoke with RN pt is going down for surgery. PT mariluz l follow up as census allows. Hero Sánchez MD - 04/18/2019 10:25 AM PSTFormatting of this note might be different from t kevin original. [facility] Service: Infectious Diseases Progress Note Hospital Day: LOS: 12 days Post-Op Day: 8 Days Post-Op CC: Follow up on osteomyelitis. Follow up on MRSA infection. SUBJECTIVE/OVERNIGHT EVENTS Continues on iv antibiotic therapy. No acute events over the last 24 hours. Patient scheduled to the OR today for bypass surgery. Intake/Output Summary (Last 24 hours) at 04/18/2019 1025 Last data filed at 04/18/2019 0526 Gross per 24 hour Intake 2272 ml Output Net 2272 ml REVIEW OF SYSTEMS . GI: denies diarrhea. Skin: denies skin rash. Constitutional: denies fever and chills. Respi ratory: denies difficulty breathing. MEDICATIONS: Scheduled Meds: amLODIPine 5 mg Oral Daily aspirin 81 mg Oral Daily atorvaSTATin 10 mg Oral Nightly cadexomer iodine Topical Every Other Day carvedilol 6.25 mg Oral BID WC clopidogrel 75 mg Oral Daily diclofenac 4 g Topical 4x Daily DULoxetine 60 mg Oral Daily dutasteride 0.5 mg Oral Daily gabapentin 300 mg Oral TID heparin 5,000 Units Subcutaneous 2 times per day insulin glargine 30 Units Subcutaneous QAM insulin lispro 0-18 Units Subcutaneous TID WC lidocaine 1 patch Transdermal Daily losartan 50 mg Oral Daily magnesium oxide 400 mg Oral Daily piperacillin-tazobactam 3.375 g Intravenous Q8H 27-0.8 mg multivitamin 1 tablet Oral Daily psyllium 1 packet Oral TID tamsulosin 0.4 mg Oral BID torsemide 20 mg Oral Daily vancomycin 1,750 mg Intravenous Q24H vancomycin per pharmacy Other Pharmacy Consult Continuous Infusions: dextrose 10% PRN Meds:.acetaminophen, albuterol, Hypoglycemia Management AND POCT Glucose AND de xtrose AND dextrose 10%, fentaNYL (PF), HYDROcodone-acetaminophen, lactulose, menthol th roat lozenges, metoclopramide OR metoclopramide, ondansetron OR ondansetron, prochlo rperazine PHYSICAL EXAM Vital Signs: BP 163/79 | Pulse 59 | Temp 36.5 C (97.7 F) (Oral) | Resp 16 | Ht 1.778 m (5' 10") | Wt 99.5 kg (219 lb 5.7 oz) | SpO2 95% | BMI 31.47 kg/m Focused exam shows: General exam: No distress, cooperative with exam. HEENT: sclera non-icteric, no visible oral thrush Cardiovascular: regular rate and rhythm Lungs: no tachypnea, clear breath sounds. Mildly decreased at bases Abdomen: no distension, bowel sounds present Extremities/MSK: No edema, no joint effusions Skin: No lesions, normal turgor Neurologic: Awake, cranial nerves intact. Follows commands. Venous access: PICC. LABS: All labs were reviewed. Recent Results (from the past 24 hour(s)) POC Glucose Result Value Ref Range Glucose, POC 200 (H) 65 - 99 mg/dL Vancomycin, Trough Result Value Ref Range Vancomycin, Trough 17.2 10 - 20 ug/mL POC Glucose Result Value Ref Range Glucose, POC 178 (H) 65 - 99 mg/dL POC Glucose Result Value Ref Range Glucose, POC 183 (H) 65 - 99 mg/dL CBC with Differential Result Value Ref Range WBC 8.12 3.80 - 11.00 K/uL RBC 4.49 4.20 - 5.70 M/uL Hemoglobin 10.6 (L) 13.2 - 17.0 g/dL Hematocrit 33.7 (L) 39.0 - 50.0 % MCV 75.0 (L) 80.0 - 100.0 fl MCH 23.7 (L) 27.0 - 34.0 pg MCHC 31.5 (L) 32.0 - 35.5 g/dL RDW-SD 70.4 (H) 37 - 53 fl Platelet Count 289 150 - 400 K/uL MPV 8.5 fl Diff Type AUTOMATED % Neutrophils 67.44 % % Lymphocytes 16.82 % Monocyte % 12.30 % Eosinophils % 2.59 % Basophils % 0.85 % Neutrophils, Absolute 5.48 1.90 - 7.40 K/uL Absolute Lymphocytes 1.37 1.00 - 3.90 K/uL Absolute Monocytes 1.00 (H) 0.00 - 0.80 K/uL Eosinophils, Absolute 0.21 0.00 - 0.50 K/uL Basophils, Absolute 0.07 0.00 - 0.10 K/uL RBC Morphology 3+ Platelet Estimate ADEQUATE Basic Metabolic Panel Result Value Ref Range Na 135 135 - 145 mmol/L K 4.3 3.5 - 4.9 mmol/L Cl 100 99 - 109 mmol/L CO2 31 23 - 32 mmol/L Anion Gap 8 5 - 20 mmol/L Glucose 156 (H) 65 - 99 mg/dL BUN 14 8 - 25 mg/dL Creatinine 0.89 0.70 - 1.30 mg/dL BUN/Creatinine Ratio 16 Calcium 8.0 (L) 8.5 - 10.5 mg/dL Estimated GFR >60 >60 mL/min/1.73m2 Microbiology Results (Last 14 Days by Collected Date with Culture/Sensitivity) Procedure Component Value Units Date/Time Culture, Wound, Superficial [[id number]] (Abnormal) (Susceptibility) Collected: 04/06/191545 Order Status: Completed Lab Status: Final result Updated: 04/11/1928 Specimen: Body Fluid from Heel, Right Special Requests LT FOOT Special Requests Testing performed at [facility];[address] [place] [address] RESULT -- 1+ ENTEROCOCCUS FAECALIS Aminoglycosides (except for high-level resistance testing), cephalosporins, clindamycin, an d trimethoprim-sulfamethoxazole may appear active in vitro but they are not effective clinic ally. RESULT -- 1+ ENTEROBACTER CLOACAE COMPLEX RESULT -- 1+ METHICILLIN RESISTANT S. AUREUS (MRSA) Susceptibility Enterococcus faecalis (1) Antibiotic Interpretation Microscan Method Status Ampicillin Sensitive SUSCEPTIBLE JESSICA Final Penicillin G Sensitive SUSCEPTIBLE JESSICA Final Gent Synergy Resistant RESISTANT JESSICA Final Levofloxacin Sensitive SUSCEPTIBLE JESSICA Final Streptomycin synergy Sensitive SUSCEPTIBLE JESSICA Final Vancomycin Sensitive SUSCEPTIBLE JESSICA Final Enterobacter cloacae complex (2) Antibiotic Interpretation Microscan Method Status Cefazolin Resistant RESISTANT JESSICA Final Cefepime Sensitive SUSCEPTIBLE JESSICA Final Cefoxitin Resistant RESISTANT JESSICA Final Ceftazidime Sensitive SUSCEPTIBLE JESSICA Final Ceftriaxone Sensitive SUSCEPTIBLE JESSICA Final Ciprofloxacin Sensitive SUSCEPTIBLE JESSICA Final Gentamicin Sensitive SUSCEPTIBLE JESSICA Final Levofloxacin Sensitive SUSCEPTIBLE JESSICA Final Tobramycin Sensitive SUSCEPTIBLE JESSICA Final Trimethoprim + Sulfamethoxazole Sensitive SUSCEPTIBLE JESSICA Final Staphylococcus aureus,Methicillin resistant (MRSA) (3) Antibiotic Interpretation Microscan Method Status Clindamycin Resistant RESISTANT JESSICA Final Erythromycin Resistant RESISTANT JESSICA Final Gentamicin Sensitive SUSCEPTIBLE JESSICA Final Levofloxacin Resistant RESISTANT JESSICA Final Moxifloxacin Resistant RESISTANT JESSICA Final Oxacillin Resistant RESISTANT JESSICA Final Tetracycline Resistant RESISTANT JESSICA Final Trimethoprim + Sulfamethoxazole Resistant RESISTANT JESSICA Final Vancomycin Sensitive SUSCEPTIBLE JESSICA Final Testing performed at [facility], [address] [place] [address] Culture, Wound, Superficial [[id number]] Collected: 04/06/191545 Order Status: Completed Lab Status: Final result Updated: 04/08/19 0937 Specimen: Body Fluid from Heel, Right Special Requests RIGHT FOOT Special Requests Testing performed at [facility];[address] [place] [address] RESULT -- 1+ NORMAL SKIN CELSA ISOLATED RESULT NO FURTHER WORKUP RESULT Testing performed at [facility], [address] [place] [address] Comment: Testing performed at [facility], [address] [place] [address] Culture, Blood [[id number]] Collected: 04/06/19337 Order Status: Completed Lab Status: Final result Updated: 04/12/1952 Specimen: Peripheral Blood Special Requests R WRIST Special Requests Testing performed at [facility];[address] [place] [address] 66251 RESULT NO GROWTH 6 DAYS RESULT Testing performed at [facility], [address] [place] [address] Comment: Testing performed at [facility], [address] [place] [address] Culture, Blood [[id number]] Collected: 04/06/19330 Order Status: Completed Lab Status: Final result Updated: 04/12/1952 Specimen: Peripheral Blood Special Requests L WRIST Special Requests Testing performed at [facility];[address] [place] [address] RESULT NO GROWTH 6 DAYS RESULT Testing performed at [facility], [address] [place] [address] Comment: Testing performed at [facility], [address] [place] [id number] Microbiology Results (72 hrs) No results found for the last 72 hours. IMAGING: No new images for review today. ASSESSMENT & PLAN The patient is a 74 y.o.-year-old male with the following problems: Active Hospital Problems Diagnosis Date Noted Essential hypertension 11/25/2017 Priority: High Insulin dependent diabetes mellitus 11/22/2017 Priority: High Peripheral vascular disease 11/22/2017 Priority: High Class 1 obesity with serious comorbidity in adult 11/22/2017 Priority: High Gross hematuria 04/08/2019 Hypomagnesemia 04/07/2019 NSTEMI (non-ST elevated myocardial infarction) 04/06/2019 Acute decompensated heart failure 04/06/2019 Acute respiratory failure 04/06/2019 Bacteremia 04/06/2019 History of stroke 04/06/2019 Chronic pain 04/06/2019 Other osteomyelitis of right foot 04/05/2019 GERD (gastroesophageal reflux disease) 05/15/2016 Acute left hemiparesis 05/14/2016 Resolved Hospital Problems No resolved problems to display. Clinically stable from ID standpoint. Continue current antibiotic regimen. Repeat CBC and CMP in the am. Follow vancomycin levels. Discussed with attending provider: Grover Charles MD Monitoring toxicity of iv antibiotic therapy, vancomycin, risk medication. Monitoring daily l labs, vancomycin levels. Pharmacy assisting with dosing and monitorization. Vancomycin levels are stable. Hero Richardson MD, MPH Infectious Diseases 04/18/19 Yoel Wakefield PA-C - 04/18/2019 9:57 AM PSTFormatting of this note might be different from the o riginal. [facility] Service: Vascular Surgery Progress Note SUBJECTIVE Patient Summary: 74 y.o. man with complex medical issues and LE ischemic ulcers, he wa s recently admitted to the [facility] from 03/28/19 to 04/04/19 where he was treated/ diagnosed with systolic heart failure, type 2 VA/NSTEMI, SHAE, ARF. O2 desaturation brought him from SNF to [facility] and current admission today with CHF and +tropo olivia. He is on IV heparin for his cardiac condition. Strep. agalactiae bacteremia, likely disseminated from patient non-healing diabetic foot ul cers. Patient currently being treated with oral Augmentin for this. Patient had undergone bedside debridement with Dr. Ceballos (podiatry). Events Overnight: No acute events overnight. Plan for surgery today. OBJECTIVE Vital Signs: Vitals: 04/18/19 0816 BP: 163/79 Pulse: 59 Resp: 16 Temp: 36.5 C (97.7 F) Physical Exam Constitutional: Well nourished, no signs of distress HENT: Non icteric sclerae, oropharynx clear. Cardiovascular: Normal rate, regular rhythm Pulmonary/Chest: No respiratory distress. Abdominal: Soft. No abdominal distension or tenderness. No abdominal pulsatile mass noted. Musculoskeletal: Normal range of motion. No evidence of arthritis. Neurological: Alert and oriented. No muscle weakness and normal gait. VASCULAR: Palpable femoral pulse bilaterally. Wounds to bilateral feet, dressings on and dr lindsay Kirkable DP bilaterally. Right heel ulcer. Left lateral eschar. No drainage noted. Labs: Lab Results Component Value Date WBC 8.12 04/18/2019 HGB 10.6 (L) 04/18/2019 HCT 33.7 (L) 04/18/2019 PLT 289 04/18/2019 CHOL 55 04/06/2019 TRIG 78 04/06/2019 HDL 26 (L) 04/06/2019 LDL 13 04/06/2019 ALT 18 04/09/2019 AST 18 04/09/2019 NA 135 04/18/2019 K 4.3 04/18/2019 CL 100 04/18/2019 CREA 0.89 04/18/2019 BUN 14 04/18/2019 CO2 31 04/18/2019 INR 1.2 04/06/2019 GLUF 197 (A) 08/21/2018 PROBLEM LIST Patient Active Problem List Diagnosis Date Noted POA Essential hypertension 11/25/2017 Yes Priority: High Insulin dependent diabetes mellitus 11/22/2017 Yes Priority: High Peripheral vascular disease 11/22/2017 Yes Priority: High Osteomyelitis of right foot 11/22/2017 Unknown Priority: High Class 1 obesity with serious comorbidity in adult 11/22/2017 Yes Priority: High Gross hematuria 04/08/2019 Yes Hypomagnesemia 04/07/2019 Yes NSTEMI (non-ST elevated myocardial infarction) 04/06/2019 Unknown Acute decompensated heart failure 04/06/2019 Unknown Acute respiratory failure 04/06/2019 Unknown Bacteremia 04/06/2019 Unknown History of stroke 04/06/2019 Unknown Chronic pain 04/06/2019 Unknown Other osteomyelitis of right foot 04/05/2019 Unknown Acute osteomyelitis of calcaneum, right 07/14/2018 Unknown Sepsis 11/19/2017 Unknown Hypokalemia 05/15/2016 Unknown GERD (gastroesophageal reflux disease) 05/15/2016 Yes Acute left hemiparesis 05/14/2016 Unknown Ischemic stroke diagnosed during current admission 05/14/2016 Unknown Moderate protein-calorie malnutrition 05/14/2016 Unknown Received intravenous tissue plasminogen activator (tPA) in emergency department 017 Unknown Type 2 diabetes mellitus 05/14/2016 Unknown ASSESSMENT & PLAN Peripheral arterial disease / Bilateral gangrenous wounds of feet - [facility] Cryovein is in house and ready for surgery today. Appreciate cardiology recommendations. Risks of surgery include bleeding, infection, nerve damage, limb loss, cristofer cardial infarction, and . He understands and signed consent obtained. Please keep NPO u ntil surgery. He will likely need a miller post op for wound infection control. Code Status: Full code Bhanu Seaman PA-C Vascular Surgery ailey Castillo RN - 04/17/2019 6:28 PM PSTPatient stable throughout shift, minimal pain, patient refusing turns, says he is fine "wiggiling" in bed, also refusing pre-meal insulin. Will continue to monitor End of shift chart check review Sunshine Chen, [facility] - 04/17/2019 1:38 PM PST Vancomycin Dosing Per Pharmacy Subjective/Objective Reagan Shepard is a 74 y.o. male started on vancomycin 04/11 for MRSA osteomyelitis o f heel. ID has been consulted for antimicrobial management. Additional antimicrobials: zosyn Quadriplegic/Paraplegic: no Diabetes: yes Baseline Serum Creatinine: 0.6 mg/dL Current Vital Signs: BP 143/70 | Pulse 66 | Temp 36.6 C (97.9 F) (Oral) | Resp 20 | Ht 1.778 m (5' 10") | Wt 99.6 kg (219 lb 9.3 oz) | SpO2 95% | BMI 31.51 kg/m Recent Labs Lab 04/17/19 1230 04/17/19 0520 04/16/19 0536 04/15/19 0752 04/15/19 0636 WBC -- 10.10 11.71* -- 8.99 VANCOTROUGH 17.2 -- -- 23.9* -- CREA -- 0.7 0.7 -- 0.76 Estimated Creatinine Clearance: 113 mL/min (based on SCr of 0.7 mg/dL). Vancomycin Dosing History Date Dosing Regimen Admin Times Trough SCr Comments Day 1 04/11 2250 mg IV loading dose 1250 mg IV Q12H Planned 1130; Not Given 2348 0.9 Please note, vancomycin load of 2250 mg was ordered but never given. Per MAR, o mitted because patient unavailable. Day 2 04/12 1250 mg Q12H 1442 0.8 Dose planned for 1230 hung late due to issues with line ac cess. Loading dose ordered yesterday missed, will give one time increased dose ~12 hours fro m dose this afternoon to target trough of 15-20 mcg/mL Day 3 04/13 2000 mg IV ONCE 1250 mg IV Q12H 0206 1600- given late 2106 Planned @1330 - not drawn due to procedure 0.7 Spoke with RN to ask why 1330 vancomycin jessica weathers had not been drawn. Per RN, patient in procedure until 1500. Will time next dose for th is morning and check a level tomorrow given stable renal function. Day 4 04/14 1020 2126 Planned @0300 Drawn at 0453 20.6 Patient is also on Zosyn and nurses are putting off doses if Zosyn is infusing. Wo uld be really helpful if we could get a second line and I did communicate that to nurse. Also note this is an 8 hr level from last dose Day 5 04/15 Change to 1750 mg IV Q24H 1428 23.9 @ 0752 Patient now with PICC line and PIV The resulting level was drawn 10 hr from last dose. Increasing difficultly dosing vancomyci n due to multiple missed and late doses. Note surgery planned for Tuesday for bypass of RL E due to limb ischemia Day 6 04/16 1750 mg Q24H 1441 0.7 Day 7 04/17 1750 mg Q24H Planned 1400 17.2 @1230 0.7 *SCr = mg/dL [vanco] = mcg/mL Assessment/Plan The vancomycin level drawn this afternoon was within the therapeutic range of 15-20 mcg/mL. Continue current regimen. Will check a level after three more doses of current regimen. Current vancomycin maintenance dose: 1750 mg Q24H Plan for level: 04/20 @1300 Pharmacy will continue to follow and make adjustments to vancomycin therapy as indicated. Thank You, Sunshine Love, PharmD, [facility] 04/17/19 1:38 PM Grover Shaver MD - 04/17/2019 12:[address] [facility] Service: Hospitalist Progress Note Pt: Reagan Shepard AGE/SEX: 74 y.o. male ROOM: [id number] : 1945 PCP: Jamar Manuel MD ADMIT DATE: 04/06/2019 TODAY'S DATE: 04/17/2019 Hospital Day/Hospital Course: LOS: 11 days Mr. Shepard is a 74-year-old gentleman with a history of bilateral nonhealing diabetic trisha t ulcers, and history of TBI, stroke, insulin dependent DM, who presents with CHF exacerbati on with hospital course complicated by gross hematuria. Recent history notable for admit to [facility] from 03/28/19 to 04/04/2019 for CHF exacerbation with eventual dischar ge to [facility]. He then re-presented to same hospital due to worsening SOB and again found to have CHF exacerbation though this time with elevated troponin to 0.17. Dr. Ruelas w as called and accepted the patient in transfer as a consulting physician and hospitalist ser vice called to admit the patient for further work-up and treatment. Patient also found to gee ve streptococcal agalactiae bacteremia thought to be secondary to nonhealing diabetic foot u lcers. ID consulted and has been assisting with antimicrobial regimen. Dr. Ruelas recommend medical management and work-up for anemia which revealed profound iron deficiency for which he was started on IV iron.Podiatry and wound care also consulted for bilateral foot ulcers . Hospital course also c/b gross hematuria requiring CBI and urology consult. SUBJECTIVE: Patient reports feeling well today. He is ready for vascular surgery procedure tomorrow. He denies chest pain, dyspnea. Scheduled Medications: amLODIPine 5 mg Oral Daily aspirin 81 mg Oral Daily atorvaSTATin 10 mg Oral Nightly cadexomer iodine Topical Every Other Day carvedilol 6.25 mg Oral BID WC clopidogrel 75 mg Oral Daily diclofenac 4 g Topical 4x Daily DULoxetine 60 mg Oral Daily dutasteride 0.5 mg Oral Daily gabapentin 300 mg Oral TID heparin 5,000 Units Subcutaneous 2 times per day insulin glargine 30 Units Subcutaneous QAM insulin lispro 0-18 Units Subcutaneous TID WC lidocaine 1 patch Transdermal Daily losartan 50 mg Oral Daily magnesium oxide 400 mg Oral Daily piperacillin-tazobactam 3.375 g Intravenous Q8H 27-0.8 mg multivitamin 1 tablet Oral Daily psyllium 1 packet Oral TID tamsulosin 0.4 mg Oral BID torsemide 20 mg Oral Daily vancomycin 1,750 mg Intravenous Q24H vancomycin per pharmacy Other Pharmacy Consult Continuous Infusions dextrose 10% PRN Medications acetaminophen, albuterol, Hypoglycemia Management AND POCT Glucose AND dextrose A ND dextrose 10%, fentaNYL (PF), HYDROcodone-acetaminophen, lactulose, menthol throat lozen ges, metoclopramide OR metoclopramide, ondansetron OR ondansetron, prochlorperazine Allergy: No Known Allergies OBJECTIVE: Vitals: BP 143/70 | Pulse 66 | Temp 36.6 C (97.9 F) (Oral) | Resp 20 | Ht 1.778 m (5' 10") | Wt 99.6 kg (219 lb 9.3 oz) | SpO2 95% | BMI 31.51 kg/m I&O Detailed Table: Intake/Output Summary (Last 24 hours) at 04/17/2019 1225 Last data filed at 04/16/2019 2300 Gross per 24 hour Intake 1097 ml Output Net 1097 ml Patient Vitals for the past 96 hrs: Weight 04/17/19 0513 99.6 kg (219 lb 9.3 oz) 04/16/19 0526 100.3 kg (221 lb 1.9 oz) 04/15/19 0325 101.4 kg (223 lb 8.7 oz) 04/14/19 0332 102.4 kg (225 lb 12 oz) Physical Examination: GEN: elderly male in no apparent distress HEAD: normocephalic EYES: no conjunctival icterus or injection ENT: MMM NECK: supple CV: warm and well perfused RESP: no increased work of breathing on ambient air ABD: soft, NT/ND, BS+, no obvious masses/organomegaly SKIN: no rashes MSK: normal muscle bulk and tone PSYCH: mood is good, affect congruent NEURO: grossly non-focal LABS: BMP 136 102 14 129* 4.3 29 0.7 CaMgPhos 8.1* 2.1 LFT 18 70 18 2.0* CBC 10.10 10.4* 301 33.2* Coag 34* 1.2 Last labs from current encounter as of 04/17/19-12:25 No results for input(s): TROPONIN, BNP in the last 72 hours. IMAGING: Reviewed in EPIC, no new results. PROBLEM LIST Principal Problem: Gross hematuria Active Problems: Insulin dependent diabetes mellitus Peripheral vascular disease Class 1 obesity with serious comorbidity in adult Essential hypertension Acute left hemiparesis GERD (gastroesophageal reflux disease) NSTEMI (non-ST elevated myocardial infarction) Acute decompensated heart failure Acute respiratory failure Bacteremia History of stroke Chronic pain Hypomagnesemia Other osteomyelitis of right foot Resolved Problems: * No resolved hospital problems. * ASSESSMENT & PLAN PAD Vascular surgery consulted and performed angiograms 04/11 and 04/13 and now are recommending femoral to peroneal artery bypass for critical limb ischemia. Prior to surgery they are requ esting formal cardiology consultation for cardiac clearance/medication optimization. -vascular surgery consulted, bypass surgery tentatively planned for tomorrow, 04/18 -continue ASA, statin Acute hypoxic respiratory failure secondary to systolic CHF exacerbation Echo 11/2017 with normal EF. Serial xrays during this hospitalization showing hypoventillati on and volume overload. Switched to torsemide 04/14. Repeat echo 04/14 showing EF 50%, grade I I DD, severely dilated LA. Currently stable, on room air, asymptomatic. -continue torsemide, ARB, BB -strict Is&Os, daily weights, telemetry -IS ordered Elevated troponin Likely secondary to demand ischemia from CHF and anemia, now asymptomatic. Echo 04/14 with n oted hypokinesis of the distal inferior wall as well as part of the apex of the LV. Stress t est done 04/16 showing inferior defect with partial improvement at rest, interventional cardi ology consulted and recommend continued medical management at this time. -cardiology consulted, continue medical management -continue ASA, statin, ARB, BB Anemia Iron panel consistent with IBIS, now s/p 3 days of IV iron, stool guaiac negative. Discussed with cardiology who based on above cardiac hx recommend goal Hgb >10. Hgb 9.8 today. -2u pRBC on 04/15 + 1u pRBC on 04/16 -daily cbc, goal Hgb >10 per cardiology -follow up as outpatient to ensure up to date with age appropriate cancer screening Recent strep bacteremia Received 8 days of IV antibiotics at [facility] discharged home on with augmentin, now readmitted on 04/06 at [facility] and started on rocephin after sending 2 set of bl ood cultures which remain negative. Wound culture grew Enterobacter and Enterococcus faecali s so patient broadened to zosyn. -ID consulted -follow up blood/wound cultures Bilateral foot ulcers -podiatry consulted -wound care consulted Gross hematuria / urinary incontinence Likely secondary to traumatic miller, s/p CBI, now resolved and patient voiding spontaneousl y without miller. Patient underwent cystoscopy with evacuation of bladder clots and placement of miller catheter with CBI by Dr. Montiel on 04/10/19. -continue flomax BID Obstipation: resolved, continue lactulose HTN: normotensive, continue above meds TII DM: HgA1c of 7.8, continue lantus 30u and LDISS PPx: SQH Code status: Full Dispo: back to [facility] pending cardiac evaluation/optimization, vascular bypass donna wero, final ID recs, tentatively planning for ~04/21 Grover Charles MD 12:25 PM 04/17/2019 Portions of this chart may have been copied from previous notes for continuity of care purp ose Rico Modi MD - 11:[address] [facility] Service: Cardiology/[facility] Interventional cardiology note RE: Reagan Shepard : 1945 DATE OF SERVICE: 04/06/2019 PROVIDER:Rico Lazo MD Pt is seen for preop evaluation. SUBJECTIVE: I asked to see Reagan by Dr. Barreto. Briefly he is a 74-year-old gentleman with his tory of diabetes mellitus, peripheral vascular disease, hypertension, hyperlipidemia and jean-claude or tobacco dependence who is been evaluated for from popliteal bypass on the left leg. He w as seen by Dr. Ruelas about a week ago for evaluation of chest discomfort and mildly positiv e troponin. He was treated medically at that time. He was seen by Dr. Barreto for preop lon luation. He was noted to be significantly anemic with a low MCV. For risk stratification h e had Lexiscan Myoview test which I reviewed myself. Currently he is having no symptoms of chest discomfort or tightness. His activities is very limited and had been like this for at least 3 months. CURRENT MEDICATIONS: Scheduled Meds: amLODIPine 5 mg Oral Daily aspirin 81 mg Oral Daily atorvaSTATin 10 mg Oral Nightly cadexomer iodine Topical Every Other Day carvedilol 6.25 mg Oral BID WC clopidogrel 75 mg Oral Daily diclofenac 4 g Topical 4x Daily DULoxetine 60 mg Oral Daily dutasteride 0.5 mg Oral Daily gabapentin 300 mg Oral TID heparin 5,000 Units Subcutaneous 2 times per day insulin glargine 30 Units Subcutaneous QAM insulin lispro 0-18 Units Subcutaneous TID WC lidocaine 1 patch Transdermal Daily losartan 50 mg Oral Daily magnesium oxide 400 mg Oral Daily piperacillin-tazobactam 3.375 g Intravenous Q8H 27-0.8 mg multivitamin 1 tablet Oral Daily psyllium 1 packet Oral TID tamsulosin 0.4 mg Oral BID torsemide 20 mg Oral Daily vancomycin 1,750 mg Intravenous Q24H vancomycin per pharmacy Other Pharmacy Consult Continuous Infusions: dextrose 10% PRN Meds:.acetaminophen, albuterol, Hypoglycemia Management AND POCT Glucose AND de xtrose AND dextrose 10%, fentaNYL (PF), HYDROcodone-acetaminophen, lactulose, menthol th roat lozenges, metoclopramide OR metoclopramide, ondansetron OR ondansetron, prochlo rperazine ALLERGIES: No Known Allergies PHYSICAL EXAM: BP 174/86 | Pulse 69 | Temp 36.4 C (97.6 F) (Oral) | Resp 20 | Ht 1.778 m (5' 10") | Wt 99.6 kg (219 lb 9.3 oz) | SpO2 90% | BMI 31.51 kg/m Intake/Output Summary (Last 24 hours) at 04/17/2019 1119 Last data filed at 04/16/2019 2300 Gross per 24 hour Intake 1097 ml Output Net 1097 ml General Appearance: Alert, oriented, cooperative, no distress, appears stated age HEENT: No xanthelasmas. Extraocular movements were intact. No jaundice. NECK: no JVD, lymphadenopathy. Trachea is at midline. Thyroid is not palpable. CARDIAC: There is normal S1 and S2. No added sounds, murmurs, gallop, or rub. CHEST: Normal bilateral symmetrical chest excursion. Good bilateral air entry with no crack les or wheezing. No evidence of dullness. ABDOMEN: Nice but nontender. Soft and lax. No tenderness. No palpable organs. Active mya l sounds. EXTREMITIES: No lower extremities edema. Pedal pulses could not be felt NEURO: Alert and oriented times three with no focal deficit. Cranial nerves are grossly no rmal. SKIN: No bruises or rash. Lab Review LABORATORY RESULTS: Lab Results Component Value Date WBC 10.10 04/17/2019 HGB 10.4 (L) 04/17/2019 HCT 33.2 (L) 04/17/2019 PLT 301 04/17/2019 Lab Results Component Value Date INR 1.2 04/06/2019 PTT 34 (H) 04/06/2019 Lab Results Component Value Date NA 136 04/17/2019 K 4.3 04/17/2019 CL 102 04/17/2019 CO2 29 04/17/2019 BUN 14 04/17/2019 CREA 0.7 04/17/2019 MG 2.1 04/07/2019 AST 18 04/09/2019 ALT 18 04/09/2019 BNP 587.58 (H) 04/14/2019 Lab Results Component Value Date CHOL 55 04/06/2019 TRIG 78 04/06/2019 HDL 26 (L) 04/06/2019 LDL 13 04/06/2019 Cardiographics ECG: Imaging Chest X-Ray: Echocardiogram: The study was technically difficult Overall image quality was poor. A contrast agent was administered. Left ventricular systolic function is low normal to mildly reduced. The left ventricular ejection fraction is 50%. There is elevated left atrial pressure and grade II left ventricular diastolic dysfuncti on. Normal right ventricular systolic function. Severely dilated left atrium. Mildly dilated right atrium. Aortic valve sclerosis without stenosis Mild mitral stenosis. Trace mitral regurgitation. Unable to assess pulmonary artery systolic pressure. There is no pericardial effusion. There appears to be hypokinesis of the distal inferior wall as well as part of the apex of the left ventricle. ASSESSMENT: 1. Abnormal stress test however primarily dense fixed inferior defect with minimal reversib ility 2. Recent non-Q wave VA 3. Severe peripheral vascular disease 4. Diabetes mellitus 5. Hypertension 6. Hyperlipidemia 7. Low MCV anemia, status post blood transfusion line mild LV dysfunction ejection fraction 45 to 50% PLAN: Overall based on his presentation, risk factors and stress test I think he is at intermedia te perioperative risk for cardiac event. Having said that he is currently having no chest d iscomfort and his EKG is pretty benign. I personally looked at his stress test and I think the inferior defect is primarily fixed with minimal if any reversibility. He is mildly posi tive troponin documented last week appears to be related to demand ischemia with the anemia. With that I do not think coronary angiography or revascularization with have any significa nt impact on improving his preoperative risk. In general I think medical therapy should be intensified by maximizing his Lipitor to 80 mg p.o. daily and continuation beta-tova and calcium channel tova. Long-acting nitrate in the form of paced or tablets might be benef icial. I did explain to him these thoughts and further recommendation will be provided by Mariella Barreto *This report has been prepared using a voice recognition system. The report was reviewed fo r accuracy, however, sound-alike word errors, addition and/or deletions may occur. If there is any question about this report please contact me. Rico Lazo MD, F.A.C.C. 04/17/2019 11:19 AM Hero Sánchez MD - 04/17/2019 11:15 AM PSTFormatting of this note might be different from the heidi razo. [facility] Service: Infectious Diseases Progress Note Hospital Day: LOS: 11 days Post-Op Day: 7 Days Post-Op CC: Follow up on osteomyelitis. Follow up on MRSA infection. SUBJECTIVE/OVERNIGHT EVENTS Continues on iv antibiotic therapy. Denies new concerns and denies side effects. Tolerating antibiotics well. No acute events over the last 24 hours. There is a plan for right lower extremity bypass surgery tomorrow. Intake/Output Summary (Last 24 hours) at 04/17/2019 1116 Last data filed at 04/16/2019 2300 Gross per 24 hour Intake 1097 ml Output Net 1097 ml REVIEW OF SYSTEMS . GI: denies diarrhea. Skin: denies skin rash. Constitutional: denies fever and chills. Respi ratory: denies difficulty breathing. MEDICATIONS: Scheduled Meds: amLODIPine 5 mg Oral Daily aspirin 81 mg Oral Daily atorvaSTATin 10 mg Oral Nightly cadexomer iodine Topical Every Other Day carvedilol 6.25 mg Oral BID WC clopidogrel 75 mg Oral Daily diclofenac 4 g Topical 4x Daily DULoxetine 60 mg Oral Daily dutasteride 0.5 mg Oral Daily gabapentin 300 mg Oral TID heparin 5,000 Units Subcutaneous 2 times per day insulin glargine 30 Units Subcutaneous QAM insulin lispro 0-18 Units Subcutaneous TID WC lidocaine 1 patch Transdermal Daily losartan 50 mg Oral Daily magnesium oxide 400 mg Oral Daily piperacillin-tazobactam 3.375 g Intravenous Q8H 27-0.8 mg multivitamin 1 tablet Oral Daily psyllium 1 packet Oral TID tamsulosin 0.4 mg Oral BID torsemide 20 mg Oral Daily vancomycin 1,750 mg Intravenous Q24H vancomycin per pharmacy Other Pharmacy Consult Continuous Infusions: dextrose 10% PRN Meds:.acetaminophen, albuterol, Hypoglycemia Management AND POCT Glucose AND de xtrose AND dextrose 10%, fentaNYL (PF), HYDROcodone-acetaminophen, lactulose, menthol th roat lozenges, metoclopramide OR metoclopramide, ondansetron OR ondansetron, prochlo rperazine PHYSICAL EXAM Vital Signs: BP 174/86 | Pulse 69 | Temp 36.4 C (97.6 F) (Oral) | Resp 20 | Ht 1.778 m (5' 10") | Wt 99.6 kg (219 lb 9.3 oz) | SpO2 90% | BMI 31.51 kg/m Focused exam shows: General exam: No distress, cooperative with exam. HEENT: sclera non-icteric, no visible oral thrush Cardiovascular: regular rate and rhythm Lungs: no tachypnea, clear breath sounds. Mildly decreased at bases Abdomen: no distension, bowel sounds present Extremities/MSK: No edema, no joint effusions Skin: No lesions, normal turgor Neurologic: Awake, cranial nerves intact. Follows commands. Venous access: PICC. LABS: All labs were reviewed. Recent Results (from the past 24 hour(s)) NM Nuclear Stress Test (Vasodilator) Result Value Ref Range BASELINE HEART RATE 72 bpm BASELINE BLOOD PRESSURE 169/84 mmHg PEAK HEART RATE 76 PEAK BLOOD PRESSURE 169/84 mmHG Target HR 126 Percent HR 51 Max Predicted HR 148 LVEF-SPECT NUCLEAR STRESS/VIABILITY 36 % NM stress end diastolic volume 153 NM stress end systolic volume 98 NM rest end diastolic volume 88 NM rest end systolic volume 50 TID VALUE 1.23 POC Glucose Result Value Ref Range Glucose, POC 106 (H) 65 - 99 mg/dL POC Glucose Result Value Ref Range Glucose, POC 192 (H) 65 - 99 mg/dL POC Glucose Result Value Ref Range Glucose, POC 96 65 - 99 mg/dL CBC with Differential Result Value Ref Range WBC 10.10 3.80 - 11.00 K/uL RBC 4.44 4.20 - 5.70 M/uL Hemoglobin 10.4 (L) 13.2 - 17.0 g/dL Hematocrit 33.2 (L) 39.0 - 50.0 % MCV 74.8 (L) 80.0 - 100.0 fl MCH 23.5 (L) 27.0 - 34.0 pg MCHC 31.5 (L) 32.0 - 35.5 g/dL RDW-SD 68.7 (H) 37 - 53 fl Platelet Count 301 150 - 400 K/uL MPV 8.7 fl Diff Type AUTOMATED % Neutrophils 75.34 % % Lymphocytes 11.83 % Monocyte % 10.09 % Eosinophils % 2.05 % Basophils % 0.69 % Neutrophils, Absolute 7.61 (H) 1.90 - 7.40 K/uL Absolute Lymphocytes 1.20 1.00 - 3.90 K/uL Absolute Monocytes 1.02 (H) 0.00 - 0.80 K/uL Eosinophils, Absolute 0.21 0.00 - 0.50 K/uL Basophils, Absolute 0.07 0.00 - 0.10 K/uL RBC Morphology 2+ Basic Metabolic Panel Result Value Ref Range Na 136 135 - 145 mmol/L K 4.3 3.5 - 4.9 mmol/L Cl 102 99 - 109 mmol/L CO2 29 23 - 32 mmol/L Anion Gap 9 5 - 20 mmol/L Glucose 129 (H) 65 - 99 mg/dL BUN 14 8 - 25 mg/dL Creatinine 0.7 0.70 - 1.30 mg/dL BUN/Creatinine Ratio 20 Calcium 8.1 (L) 8.5 - 10.5 mg/dL Estimated GFR >60 >60 mL/min/1.73m2 POC Glucose Result Value Ref Range Glucose, POC 141 (H) 65 - 99 mg/dL POC Glucose Result Value Ref Range Glucose, POC 138 (H) 65 - 99 mg/dL Microbiology Results (Last 14 Days by Collected Date with Culture/Sensitivity) Procedure Component Value Units Date/Time Culture, Wound, Superficial [[id number]] (Abnormal) (Susceptibility) Collected: 04/06/191545 Order Status: Completed Lab Status: Final result Updated: 04/11/1928 Specimen: Body Fluid from Heel, Right Special Requests LT FOOT Special Requests Testing performed at [facility];[address] [place] [address];[place] [address] RESULT -- 1+ ENTEROCOCCUS FAECALIS Aminoglycosides (except for high-level resistance testing), cephalosporins, clindamycin, an d trimethoprim-sulfamethoxazole may appear active in vitro but they are not effective clinic ally. RESULT -- 1+ ENTEROBACTER CLOACAE COMPLEX RESULT -- 1+ METHICILLIN RESISTANT S. AUREUS (MRSA) Susceptibility Enterococcus faecalis (1) Antibiotic Interpretation Microscan Method Status Ampicillin Sensitive SUSCEPTIBLE JESSICA Final Penicillin G Sensitive SUSCEPTIBLE JESSICA Final Gent Synergy Resistant RESISTANT JESSICA Final Levofloxacin Sensitive SUSCEPTIBLE JESSICA Final Streptomycin synergy Sensitive SUSCEPTIBLE JESSICA Final Vancomycin Sensitive SUSCEPTIBLE JESSICA Final Enterobacter cloacae complex (2) Antibiotic Interpretation Microscan Method Status Cefazolin Resistant RESISTANT JESSICA Final Cefepime Sensitive SUSCEPTIBLE JESSICA Final Cefoxitin Resistant RESISTANT JESSICA Final Ceftazidime Sensitive SUSCEPTIBLE JESSICA Final Ceftriaxone Sensitive SUSCEPTIBLE JESSICA Final Ciprofloxacin Sensitive SUSCEPTIBLE JSESICA Final Gentamicin Sensitive SUSCEPTIBLE JESSICA Final Levofloxacin Sensitive SUSCEPTIBLE JESSICA Final Tobramycin Sensitive SUSCEPTIBLE JESSICA Final Trimethoprim + Sulfamethoxazole Sensitive SUSCEPTIBLE JESSICA Final Staphylococcus aureus,Methicillin resistant (MRSA) (3) Antibiotic Interpretation Microscan Method Status Clindamycin Resistant RESISTANT JESSICA Final Erythromycin Resistant RESISTANT JESSICA Final Gentamicin Sensitive SUSCEPTIBLE JESSICA Final Levofloxacin Resistant RESISTANT JESSICA Final Moxifloxacin Resistant RESISTANT JESSICA Final Oxacillin Resistant RESISTANT JESSICA Final Tetracycline Resistant RESISTANT JESSICA Final Trimethoprim + Sulfamethoxazole Resistant RESISTANT JESSICA Final Vancomycin Sensitive SUSCEPTIBLE JESSICA Final Testing performed at [facility], [address] [place] [address], [place] [address] Culture, Wound, Superficial [[id number]] Collected: 04/06/191545 Order Status: Completed Lab Status: Final result Updated: 04/08/19 0937 Specimen: Body Fluid from Heel, Right Special Requests RIGHT FOOT Special Requests Testing performed at [facility];[address] [place] [address];[place] [address] RESULT -- 1+ NORMAL SKIN CELSA ISOLATED RESULT NO FURTHER WORKUP RESULT Testing performed at [facility], [address] [place] [address] Comment: Testing performed at [facility], [address] [place] [address] Culture, Blood [[id number]] Collected: 04/06/19337 Order Status: Completed Lab Status: Final result Updated: 04/12/19651 Specimen: Peripheral Blood Special Requests R WRIST Special Requests Testing performed at [facility];[address] [place] [address] RESULT NO GROWTH 6 DAYS RESULT Testing performed at [facility], [address] [place] [address] Comment: Testing performed at [facility], [address] [place] [address] Culture, Blood [[id number]] Collected: 04/06/19330 Order Status: Completed Lab Status: Final result Updated: 04/12/1952 Specimen: Peripheral Blood Special Requests L WRIST Special Requests Testing performed at [facility];[address] [place] [address] RESULT NO GROWTH 6 DAYS RESULT Testing performed at [facility], [address] [place] [address] Comment: Testing performed at [facility], [address] [place] [id number] Microbiology Results (72 hrs) No results found for the last 72 hours. IMAGING: No new images for review today. ASSESSMENT & PLAN The patient is a 74 y.o.-year-old male with the following problems: Active Hospital Problems Diagnosis Date Noted Essential hypertension 11/25/2017 Priority: High Insulin dependent diabetes mellitus 11/22/2017 Priority: High Peripheral vascular disease 11/22/2017 Priority: High Class 1 obesity with serious comorbidity in adult 11/22/2017 Priority: High Gross hematuria 04/08/2019 Hypomagnesemia 04/07/2019 NSTEMI (non-ST elevated myocardial infarction) 04/06/2019 Acute decompensated heart failure 04/06/2019 Acute respiratory failure 04/06/2019 Bacteremia 04/06/2019 History of stroke 04/06/2019 Chronic pain 04/06/2019 Other osteomyelitis of right foot 04/05/2019 GERD (gastroesophageal reflux disease) 05/15/2016 Acute left hemiparesis 05/14/2016 Resolved Hospital Problems No resolved problems to display. Clinically stable from ID standpoint. Continue current antibiotic regimen. Repeat CBC and CMP in the am. Follow vancomycin levels. Discussed with attending provider: Grover Charles MD Monitoring toxicity of iv antibiotic therapy, vancomycin, risk medication. Monitoring daily l labs, vancomycin levels. Pharmacy assisting with dosing and monitorization. The patient continues to have treatment of his severe peripheral vascular disease. He is h as been scheduled for vascular surgery tomorrow. He needs reevaluation by podiatry once vascular interventions have concluded. Again, his r ight heel chronic osteomyelitis will not be curable. Left foot may be salvageable although need to reassess after vascular surgery interventions. Hero Richardson MD, MPH Infectious Diseases 04/17/19 Yoel Wakefield PA-C - 04/17/2019 10:40 AM PSTFormatting of this note might be different from the o riginal. [facility] Service: Vascular Surgery Progress Note SUBJECTIVE Patient Summary: 74 y.o. man with complex medical issues and LE ischemic ulcers, he wa s recently admitted to the [facility] from 03/28/19 to 04/04/19 where he was treated/ diagnosed with systolic heart failure, type 2 VA/NSTEMI, SHAE, ARF. O2 desaturation brought him from SNF to [facility] and current admission today with CHF and +tropo olivia. He is on IV heparin for his cardiac condition. Strep. agalactiae bacteremia, likely disseminated from patient non-healing diabetic foot ul cers. Patient currently being treated with oral Augmentin for this. Patient had undergone bedside debridement with Dr. Ceballos (podiatry). Events Overnight: Stress test yesterday. No plans for heart cath per cardiology. No a cute events overnight. Plan for surgery tomorrow. OBJECTIVE Vital Signs: Vitals: 04/17/19 0949 BP: 174/86 Pulse: 69 Resp: Temp: Physical Exam Constitutional: Well nourished, no signs of distress HENT: Non icteric sclerae, oropharynx clear. Cardiovascular: Normal rate, regular rhythm Pulmonary/Chest: No respiratory distress. Abdominal: Soft. No abdominal distension or tenderness. No abdominal pulsatile mass noted. Musculoskeletal: Normal range of motion. No evidence of arthritis. Neurological: Alert and oriented. No muscle weakness and normal gait. VASCULAR: Palpable femoral pulse bilaterally. Wounds to bilateral feet, dressings on and dr neil. Dopplerable DP bilaterally. Right heel ulcer. Left lateral eschar. No drainage noted. Labs: Lab Results Component Value Date WBC 10.10 04/17/2019 HGB 10.4 (L) 04/17/2019 HCT 33.2 (L) 04/17/2019 PLT 301 04/17/2019 CHOL 55 04/06/2019 TRIG 78 04/06/2019 HDL 26 (L) 04/06/2019 LDL 13 04/06/2019 ALT 18 04/09/2019 AST 18 04/09/2019 NA 136 04/17/2019 K 4.3 04/17/2019 CL 102 04/17/2019 CREA 0.7 04/17/2019 BUN 14 04/17/2019 CO2 29 04/17/2019 INR 1.2 04/06/2019 GLUF 197 (A) 08/21/2018 PROBLEM LIST Patient Active Problem List Diagnosis Date Noted POA Essential hypertension 11/25/2017 Yes Priority: High Insulin dependent diabetes mellitus 11/22/2017 Yes Priority: High Peripheral vascular disease 11/22/2017 Yes Priority: High Osteomyelitis of right foot 11/22/2017 Unknown Priority: High Class 1 obesity with serious comorbidity in adult 11/22/2017 Yes Priority: High Gross hematuria 04/08/2019 Yes Hypomagnesemia 04/07/2019 Yes NSTEMI (non-ST elevated myocardial infarction) 04/06/2019 Unknown Acute decompensated heart failure 04/06/2019 Unknown Acute respiratory failure 04/06/2019 Unknown Bacteremia 04/06/2019 Unknown History of stroke 04/06/2019 Unknown Chronic pain 04/06/2019 Unknown Other osteomyelitis of right foot 04/05/2019 Unknown Acute osteomyelitis of calcaneum, right 07/14/2018 Unknown Sepsis 11/19/2017 Unknown Hypokalemia 05/15/2016 Unknown GERD (gastroesophageal reflux disease) 05/15/2016 Yes Acute left hemiparesis 05/14/2016 Unknown Ischemic stroke diagnosed during current admission 05/14/2016 Unknown Moderate protein-calorie malnutrition 05/14/2016 Unknown Received intravenous tissue plasminogen activator (tPA) in emergency department 017 Unknown Type 2 diabetes mellitus 05/14/2016 Unknown ASSESSMENT & PLAN Peripheral arterial disease / Bilateral gangrenous wounds of feet - Plan for right leg bypa ss surgery on 04/18/2019. Appreciate cardiology recommendations. Nuclear stress test done yes terday, okayed for surgery per Cardiology. They did not feel coronary angiogram was necessar y. Risks of surgery include bleeding, infection, nerve damage, myocardial infarction, and de ath. He understands and signed consent obtained. Please keep NPO after midnight. Code Status: Full code Bhanu Seaman PA-C Vascular Surgery arrar, Ambrosio Tyson MD - 04/16/2019 7:41 PM PSTFormatting of this note might be different from the origin al. PATIENT NAME: Reagan Shepard : 1945: AGE: 74 y.o. ADMIT HOSP DATE: 04/06/2019 CURRENT HOSP DAY: Hospital Day: 11 PRIMARY CARE: Jamar Manuel MD PRINCIPAL HOSP PROB: Gross hematuria CODE STATUS: Full Code Ambrosio Tyson MD DAILY PROGRESS NOTE CURRENT ASSESSMENT AND PLAN Mr Shepard had Lexiscan MPI today. Dr Simmons's preliminary note Inferior Wall ischemia. Di scussed with Dr Lazo and Dr Charles. Dr Lazo to evaluate for Cath. I spoke to patient and he understands plan. Principal Problem: Gross hematuria Active Problems: Insulin dependent diabetes mellitus Peripheral vascular disease Class 1 obesity with serious comorbidity in adult Essential hypertension Acute left hemiparesis GERD (gastroesophageal reflux disease) NSTEMI (non-ST elevated myocardial infarction) Acute decompensated heart failure Acute respiratory failure Bacteremia History of stroke Chronic pain Hypomagnesemia Other osteomyelitis of right foot SCHEDULED MEDS: Current Facility-Administered Medications (Cardiac Medications) Medication Dose Route Frequency acetaminophen (TYLENOL) tablet 650 mg 650 mg Oral Q4H PRN amLODIPine (NORVASC) tablet 5 mg 5 mg Oral Daily aspirin chewable tablet 81 mg 81 mg Oral Daily atorvaSTATin (LIPITOR) tablet 10 mg 10 mg Oral Nightly carvedilol (COREG) tablet 6.25 mg 6.25 mg Oral BID WC clopidogrel (PLAVIX) tablet 75 mg 75 mg Oral Daily heparin 5,000 units/mL injection 5,000 Units 5,000 Units Subcutaneous 2 times per day losartan (COZAAR) tablet 50 mg 50 mg Oral Daily torsemide (DEMADEX) tablet 20 mg 20 mg Oral Daily Current Facility-Administered Medications (Other) Medication Dose Route Frequency albuterol 1.25 mg/3 mL nebulizer solution 1.25 mg 1.25 mg Nebulization RT Q4H PRN cadexomer iodine (IODOSORB) 0.9 % gel Topical Every Other Day dextrose 50% injection 12.5-25 g 12.5-25 g Intravenous PRN And dextrose 10% (D10W) infusion Intravenous Continuous PRN diclofenac (VOLTAREN) 1% gel 4 g 4 g Topical 4x Daily DULoxetine (CYMBALTA) DR capsule 60 mg 60 mg Oral Daily dutasteride (AVODART) capsule 0.5 mg 0.5 mg Oral Daily fentaNYL (PF) injection 25-100 mcg 25-100 mcg Intravenous Q2H PRN gabapentin (NEURONTIN) capsule 300 mg 300 mg Oral TID HYDROcodone-acetaminophen (NORCO) 5-325 mg per tablet 1-2 tablet 1-2 tablet Oral Q4H P RN insulin glargine (LANTUS SOLOSTAR) injection (pen) 30 Units 30 Units Subcutaneous QAM insulin lispro (humaLOG) injection (vial) 0-18 Units 0-18 Units Subcutaneous TID WC lactulose liquid 30 mL 30 mL Oral Daily PRN lidocaine (LIDODERM) 5% patch 1 patch 1 patch Transdermal Daily magnesium oxide (MAG-OX) tablet 400 mg 400 mg Oral Daily menthol (HALLS) lozenge 1 lozenge 1 lozenge Buccal Q2H PRN metoclopramide (REGLAN) tablet 10 mg 10 mg Oral Q4H PRN Or metoclopramide (REGLAN) 5 mg/mL injection 10 mg 10 mg Intravenous Q4H PRN ondansetron (ZOFRAN ODT) disintegrating tablet 4 mg 4 mg Oral Q6H PRN Or ondansetron (ZOFRAN) injection 4 mg 4 mg Intravenous Q6H PRN piperacillin-tazobactam (ZOSYN) IVPB 3.375 g 3.375 g Intravenous Q8H 27-0.8 mg multivitamin 1 tablet 1 tablet Oral Daily prochlorperazine tablet 5 mg 5 mg Oral Q6H PRN psyllium (METAMUCIL SMOOTH TEXTURE) 28 % packet 1 packet 1 packet Oral TID tamsulosin (FLOMAX) capsule 0.4 mg 0.4 mg Oral BID vancomycin in saline IVPB 1.75 g 1,750 mg Intravenous Q24H vancomycin per pharmacy Other Pharmacy Consult LABS Recent Results (from the past 24 hour(s)) POC Glucose Collection Time: 04/15/19 9:03 PM Result Value Ref Range Glucose, POC 171 (H) 65 - 99 mg/dL CBC with Differential Collection Time: 04/16/19 5:36 AM Result Value Ref Range WBC 11.71 (H) 3.80 - 11.00 K/uL RBC 4.22 4.20 - 5.70 M/uL Hemoglobin 9.8 (L) 13.2 - 17.0 g/dL Hematocrit 30.6 (L) 39.0 - 50.0 % MCV 72.5 (L) 80.0 - 100.0 fl MCH 23.3 (L) 27.0 - 34.0 pg MCHC 32.1 32.0 - 35.5 g/dL RDW-SD 65.2 (H) 37 - 53 fl Platelet Count 318 150 - 400 K/uL MPV 8.3 fl Diff Type AUTOMATED % Neutrophils 75.72 % % Lymphocytes 10.53 % Monocyte % 11.44 % Eosinophils % 1.37 % Basophils % 0.94 % Neutrophils, Absolute 8.87 (H) 1.90 - 7.40 K/uL Absolute Lymphocytes 1.23 1.00 - 3.90 K/uL Absolute Monocytes 1.34 (H) 0.00 - 0.80 K/uL Eosinophils, Absolute 0.16 0.00 - 0.50 K/uL Basophils, Absolute 0.11 (H) 0.00 - 0.10 K/uL RBC Morphology 2+ Basic Metabolic Panel Collection Time: 04/16/19 5:36 AM Result Value Ref Range Na 136 135 - 145 mmol/L K 3.9 3.5 - 4.9 mmol/L Cl 104 99 - 109 mmol/L CO2 29 23 - 32 mmol/L Anion Gap 7 5 - 20 mmol/L Glucose 86 65 - 99 mg/dL BUN 14 8 - 25 mg/dL Creatinine 0.7 0.70 - 1.30 mg/dL BUN/Creatinine Ratio 20 Calcium 8.3 (L) 8.5 - 10.5 mg/dL Estimated GFR >60 >60 mL/min/1.73m2 POC Glucose Collection Time: 04/16/19 7:36 AM Result Value Ref Range Glucose, POC 100 (H) 65 - 99 mg/dL NM Nuclear Stress Test (Vasodilator) Collection Time: 04/16/19 1:00 PM Result Value Ref Range BASELINE HEART RATE 72 bpm BASELINE BLOOD PRESSURE 169/84 mmHg PEAK HEART RATE 76 PEAK BLOOD PRESSURE 169/84 mmHG Target HR 126 Percent HR 51 Max Predicted HR 148 LVEF-SPECT NUCLEAR STRESS/VIABILITY 36 % NM stress end diastolic volume 153 NM stress end systolic volume 98 NM rest end diastolic volume 88 NM rest end systolic volume 50 TID VALUE 1.23 POC Glucose Collection Time: 04/16/19 1:15 PM Result Value Ref Range Glucose, POC 106 (H) 65 - 99 mg/dL POC Glucose Collection Time: 04/16/19 4:39 PM Result Value Ref Range Glucose, POC 192 (H) 65 - 99 mg/dL OBJECTIVE LATEST VITALS: BP 132/63 | Pulse 68 | Temp 36.5 C (97.7 F) (Oral) | Resp 21 | Ht 1 .778 m (5' 10") | Wt 100.3 kg (221 lb 1.9 oz) | SpO2 95% | BMI 31.73 kg/m I/O s (this shift): No intake/output data recorded. Vital sign ranges for last 24hrs: Input and output for last 24hrs: Temp: [36.5 C (97.7 F)-36.8 C (98.2 F)] 36.5 C (97.7 F) Pulse: [61-77] 68 Resp: [18-22] 21 BP: (121-171)/(63-80) 132/63 SpO2 Av % Min: 92 % Max: 96 % 04/15 07 - 04/16 1900 In: 2672 [P.O.:450; I.V.:1622] Out: - Body mass index is 31.73 kg/m.; Body surface area is 2.23 meters squared. PHYSICAL EXAM Admit Weight: Weight: 109.3 kg (240 lb 14.4 oz) Current weight: Weight: 100.3 kg (221 lb 1.9 oz) GENERAL: Pleasant, talkative in no apparent distress HEENT: Mucous membranes moist. EEOMI. NECK: JVP +/- CHEST: CTA anteriorly CARDIAC: Distant NEUROLOGIC: Non-focal. MUSCULOSKELETAL: normal ambulation Signed by: Ambrosio Tyson MD 04/16/2019, 7:41 PM Hero Sánchez MD - 04/16/2019 6:[address] [facility] Service: Infectious Diseases Progress Note Hospital Day: LOS: 10 days Post-Op Day: 6 Days Post-Op CC: Follow up on osteomyelitis. Follow up on MRSA infection. SUBJECTIVE/OVERNIGHT EVENTS Continues on iv antibiotic therapy. Denies new concerns and denies side effects. Tolerating antibiotics well. No acute events over the last 24 hours. Cardiology on board due to chest pain. Mild elevation of troponin. Intake/Output Summary (Last 24 hours) at 04/16/2019 1849 Last data filed at 04/16/2019 0526 Gross per 24 hour Intake 2222 ml Output Net 2222 ml REVIEW OF SYSTEMS . GI: denies diarrhea. Skin: denies skin rash. Constitutional: denies fever and chills. Respi ratory: denies difficulty breathing. MEDICATIONS: Scheduled Meds: amLODIPine 5 mg Oral Daily aspirin 81 mg Oral Daily atorvaSTATin 10 mg Oral Nightly cadexomer iodine Topical Every Other Day carvedilol 6.25 mg Oral BID WC clopidogrel 75 mg Oral Daily diclofenac 4 g Topical 4x Daily DULoxetine 60 mg Oral Daily dutasteride 0.5 mg Oral Daily gabapentin 300 mg Oral TID heparin 5,000 Units Subcutaneous 2 times per day insulin glargine 30 Units Subcutaneous QAM insulin lispro 0-18 Units Subcutaneous TID WC lidocaine 1 patch Transdermal Daily losartan 50 mg Oral Daily magnesium oxide 400 mg Oral Daily piperacillin-tazobactam 3.375 g Intravenous Q8H 27-0.8 mg multivitamin 1 tablet Oral Daily psyllium 1 packet Oral TID tamsulosin 0.4 mg Oral BID torsemide 20 mg Oral Daily vancomycin 1,750 mg Intravenous Q24H vancomycin per pharmacy Other Pharmacy Consult Continuous Infusions: dextrose 10% PRN Meds:.acetaminophen, albuterol, Hypoglycemia Management AND POCT Glucose AND de xtrose AND dextrose 10%, fentaNYL (PF), HYDROcodone-acetaminophen, lactulose, menthol th roat lozenges, metoclopramide OR metoclopramide, ondansetron OR ondansetron, prochlo rperazine PHYSICAL EXAM Vital Signs: BP 132/63 | Pulse 68 | Temp 36.5 C (97.7 F) (Oral) | Resp 21 | Ht 1.778 m (5' 10") | Wt 100.3 kg (221 lb 1.9 oz) | SpO2 95% | BMI 31.73 kg/m Focused exam shows: General exam: No distress, cooperative with exam. HEENT: sclera non-icteric, no visible oral thrush Cardiovascular: regular rate and rhythm Lungs: no tachypnea, clear breath sounds. Mildly decreased at bases Abdomen: no distension, bowel sounds present Extremities/MSK: No edema, no joint effusions Skin: No lesions, normal turgor Neurologic: Awake, cranial nerves intact. Follows commands. Venous access: PIV. LABS: All labs were reviewed. Recent Results (from the past 24 hour(s)) POC Glucose Result Value Ref Range Glucose, POC 171 (H) 65 - 99 mg/dL CBC with Differential Result Value Ref Range WBC 11.71 (H) 3.80 - 11.00 K/uL RBC 4.22 4.20 - 5.70 M/uL Hemoglobin 9.8 (L) 13.2 - 17.0 g/dL Hematocrit 30.6 (L) 39.0 - 50.0 % MCV 72.5 (L) 80.0 - 100.0 fl MCH 23.3 (L) 27.0 - 34.0 pg MCHC 32.1 32.0 - 35.5 g/dL RDW-SD 65.2 (H) 37 - 53 fl Platelet Count 318 150 - 400 K/uL MPV 8.3 fl Diff Type AUTOMATED % Neutrophils 75.72 % % Lymphocytes 10.53 % Monocyte % 11.44 % Eosinophils % 1.37 % Basophils % 0.94 % Neutrophils, Absolute 8.87 (H) 1.90 - 7.40 K/uL Absolute Lymphocytes 1.23 1.00 - 3.90 K/uL Absolute Monocytes 1.34 (H) 0.00 - 0.80 K/uL Eosinophils, Absolute 0.16 0.00 - 0.50 K/uL Basophils, Absolute 0.11 (H) 0.00 - 0.10 K/uL RBC Morphology 2+ Basic Metabolic Panel Result Value Ref Range Na 136 135 - 145 mmol/L K 3.9 3.5 - 4.9 mmol/L Cl 104 99 - 109 mmol/L CO2 29 23 - 32 mmol/L Anion Gap 7 5 - 20 mmol/L Glucose 86 65 - 99 mg/dL BUN 14 8 - 25 mg/dL Creatinine 0.7 0.70 - 1.30 mg/dL BUN/Creatinine Ratio 20 Calcium 8.3 (L) 8.5 - 10.5 mg/dL Estimated GFR >60 >60 mL/min/1.73m2 POC Glucose Result Value Ref Range Glucose, POC 100 (H) 65 - 99 mg/dL NM Nuclear Stress Test (Vasodilator) Result Value Ref Range BASELINE HEART RATE 72 bpm BASELINE BLOOD PRESSURE 169/84 mmHg PEAK HEART RATE 76 PEAK BLOOD PRESSURE 169/84 mmHG Target HR 126 Percent HR 51 Max Predicted HR 148 LVEF-SPECT NUCLEAR STRESS/VIABILITY 36 % NM stress end diastolic volume 153 NM stress end systolic volume 98 NM rest end diastolic volume 88 NM rest end systolic volume 50 TID VALUE 1.23 POC Glucose Result Value Ref Range Glucose, POC 106 (H) 65 - 99 mg/dL POC Glucose Result Value Ref Range Glucose, POC 192 (H) 65 - 99 mg/dL Microbiology Results (Last 14 Days by Collected Date with Culture/Sensitivity) Procedure Component Value Units Date/Time Culture, Wound, Superficial [[id number]] (Abnormal) (Susceptibility) Collected: 04/06/19 1546 Order Status: Completed Lab Status: Final result Updated: 04/11/19 0728 Specimen: Body Fluid from Heel, Right Special Requests LT FOOT Special Requests Testing performed at [facility];[address] [place] [address];[place] [address] RESULT -- 1+ ENTEROCOCCUS FAECALIS Aminoglycosides (except for high-level resistance testing), cephalosporins, clindamycin, an d trimethoprim-sulfamethoxazole may appear active in vitro but they are not effective clinic ally. RESULT -- 1+ ENTEROBACTER CLOACAE COMPLEX RESULT -- 1+ METHICILLIN RESISTANT S. AUREUS (MRSA) Susceptibility Enterococcus faecalis (1) Antibiotic Interpretation Microscan Method Status Ampicillin Sensitive SUSCEPTIBLE JESSICA Final Penicillin G Sensitive SUSCEPTIBLE JESSICA Final Gent Synergy Resistant RESISTANT JESSICA Final Levofloxacin Sensitive SUSCEPTIBLE JESSICA Final Streptomycin synergy Sensitive SUSCEPTIBLE JESSICA Final Vancomycin Sensitive SUSCEPTIBLE JESSICA Final Enterobacter cloacae complex (2) Antibiotic Interpretation Microscan Method Status Cefazolin Resistant RESISTANT JESSICA Final Cefepime Sensitive SUSCEPTIBLE JESSICA Final Cefoxitin Resistant RESISTANT JESSICA Final Ceftazidime Sensitive SUSCEPTIBLE JESSICA Final Ceftriaxone Sensitive SUSCEPTIBLE JESSICA Final Ciprofloxacin Sensitive SUSCEPTIBLE JESSICA Final Gentamicin Sensitive SUSCEPTIBLE JESSICA Final Levofloxacin Sensitive SUSCEPTIBLE JESSICA Final Tobramycin Sensitive SUSCEPTIBLE JESSICA Final Trimethoprim + Sulfamethoxazole Sensitive SUSCEPTIBLE JESSICA Final Staphylococcus aureus,Methicillin resistant (MRSA) (3) Antibiotic Interpretation Microscan Method Status Clindamycin Resistant RESISTANT JESSICA Final Erythromycin Resistant RESISTANT JESSICA Final Gentamicin Sensitive SUSCEPTIBLE JESSICA Final Levofloxacin Resistant RESISTANT JESSICA Final Moxifloxacin Resistant RESISTANT JESSICA Final Oxacillin Resistant RESISTANT JESSICA Final Tetracycline Resistant RESISTANT JESSICA Final Trimethoprim + Sulfamethoxazole Resistant RESISTANT JESSICA Final Vancomycin Sensitive SUSCEPTIBLE JESSICA Final Testing performed at [facility], [address] [place] [address] Culture, Wound, Superficial [[id number]] Collected: 04/06/19 1546 Order Status: Completed Lab Status: Final result Updated: 04/08/1937 Specimen: Body Fluid from Heel, Right Special Requests RIGHT FOOT Special Requests Testing performed at [facility];[address] [place] [address] RESULT -- 1+ NORMAL SKIN CELSA ISOLATED RESULT NO FURTHER WORKUP RESULT Testing performed at [facility], [address] [place] [address] Comment: Testing performed at [facility], [address] [place] [address] Culture, Blood [[id number]] Collected: 04/06/19337 Order Status: Completed Lab Status: Final result Updated: 04/12/1952 Specimen: Peripheral Blood Special Requests R WRIST Special Requests Testing performed at [facility];[address] [place] [address] RESULT NO GROWTH 6 DAYS RESULT Testing performed at [facility], [address] [place] [address] Comment: Testing performed at [facility], [address] [place] [address] Culture, Blood [[id number]] Collected: 04/06/19 0331 Order Status: Completed Lab Status: Final result Updated: 04/12/19 0652 Specimen: Peripheral Blood Special Requests L WRIST Special Requests Testing performed at [facility];[address] [place] [address];[place] [address] RESULT NO GROWTH 6 DAYS RESULT Testing performed at [facility], [address] [place] [address] Comment: Testing performed at [facility], [address] [facility], [place] [address] Microbiology Results (72 hrs) No results found for the last 72 hours. IMAGING: No new images for review today. ASSESSMENT & PLAN The patient is a 74 y.o.-year-old male with the following problems: Active Hospital Problems Diagnosis Date Noted Essential hypertension 11/25/2017 Priority: High Insulin dependent diabetes mellitus 11/22/2017 Priority: High Peripheral vascular disease 11/22/2017 Priority: High Class 1 obesity with serious comorbidity in adult 11/22/2017 Priority: High Gross hematuria 04/08/2019 Hypomagnesemia 04/07/2019 NSTEMI (non-ST elevated myocardial infarction) 04/06/2019 Acute decompensated heart failure 04/06/2019 Acute respiratory failure 04/06/2019 Bacteremia 04/06/2019 History of stroke 04/06/2019 Chronic pain 04/06/2019 Other osteomyelitis of right foot 04/05/2019 GERD (gastroesophageal reflux disease) 05/15/2016 Acute left hemiparesis 05/14/2016 Resolved Hospital Problems No resolved problems to display. Clinically stable from ID standpoint. Continue current antibiotic regimen. Repeat CBC and CMP in the am. Follow vancomycin levels. Discussed with attending provider: Grover Charles MD Monitoring toxicity of iv antibiotic therapy, vancomycin, risk medication. Monitoring daily l labs, vancomycin levels. Pharmacy assisting with dosing and monitorization. Hero Richardson MD, MPH Infectious Diseases 04/16/19 rista Sutherland RN - 04/16/2019 5:19 PM PSTPt vitals stable. . No changes in peripheral pulses. Pt n ot requiring oxygen. Pt denies chest pain and feeling short of breath. Needs and concerns a ddressed with pt. End of shift audit complete. Crista Sutherland RN rover Charles MD - 04/16/2019 5:02 PM PSTFormatti ng of this note might be different from the original. [facility] Service: Hospitalist Progress Note Pt: Reagan Shepard AGE/SEX: 74 y.o. male ROOM: 4452/4452-01 : 1945 PCP: Jamar Manuel MD ADMIT DATE: 04/06/2019 TODAY'S DATE: 04/16/2019 Hospital Day/Hospital Course: LOS: 10 days Mr. Shepard is a 74-year-old gentleman with a history of bilateral nonhealing diabetic trisha t ulcers, and history of TBI, stroke, insulin dependent DM, who presents with CHF exacerbati on with hospital course complicated by gross hematuria. Recent history notable for admit to [facility] from 03/28/19 to 04/04/2019 for CHF exacerbation with eventual dischar ge to [facility]. He then re-presented to same hospital due to worsening SOB and again found to have CHF exacerbation though this time with elevated troponin to 0.17. Dr. Ruelas w as called and accepted the patient in transfer as a consulting physician and hospitalist ser vice called to admit the patient for further work-up and treatment. Patient also found to gee ve streptococcal agalactiae bacteremia thought to be secondary to nonhealing diabetic foot u lcers. ID consulted and has been assisting with antimicrobial regimen. Dr. Ruelas recommend medical management and work-up for anemia which revealed profound iron deficiency for which he was started on IV iron.Podiatry and wound care also consulted for bilateral foot ulcers . Hospital course also c/b gross hematuria requiring CBI and urology consult. SUBJECTIVE: Patient reports feeling well today. Underwent stress test earlier this morning. He states s tress test uneventful. He denies chest pain, dyspnea. Scheduled Medications: amLODIPine 5 mg Oral Daily aspirin 81 mg Oral Daily atorvaSTATin 10 mg Oral Nightly cadexomer iodine Topical Every Other Day carvedilol 6.25 mg Oral BID WC clopidogrel 75 mg Oral Daily diclofenac 4 g Topical 4x Daily DULoxetine 60 mg Oral Daily dutasteride 0.5 mg Oral Daily gabapentin 300 mg Oral TID heparin 5,000 Units Subcutaneous 2 times per day insulin glargine 30 Units Subcutaneous QAM insulin lispro 0-18 Units Subcutaneous TID WC lidocaine 1 patch Transdermal Daily losartan 50 mg Oral Daily magnesium oxide 400 mg Oral Daily piperacillin-tazobactam 3.375 g Intravenous Q8H 27-0.8 mg multivitamin 1 tablet Oral Daily psyllium 1 packet Oral TID tamsulosin 0.4 mg Oral BID torsemide 20 mg Oral Daily vancomycin 1,750 mg Intravenous Q24H vancomycin per pharmacy Other Pharmacy Consult Continuous Infusions dextrose 10% PRN Medications acetaminophen, albuterol, Hypoglycemia Management AND POCT Glucose AND dextrose A ND dextrose 10%, fentaNYL (PF), HYDROcodone-acetaminophen, lactulose, menthol throat lozen ges, metoclopramide OR metoclopramide, ondansetron OR ondansetron, prochlorperazine Allergy: No Known Allergies OBJECTIVE: Vitals: BP 132/63 | Pulse 68 | Temp 36.5 C (97.7 F) (Oral) | Resp 21 | Ht 1.778 m (5' 10") | Wt 100.3 kg (221 lb 1.9 oz) | SpO2 95% | BMI 31.73 kg/m I&O Detailed Table: Intake/Output Summary (Last 24 hours) at 04/16/2019 1702 Last data filed at 04/16/2019 0526 Gross per 24 hour Intake 2222 ml Output Net 2222 ml Patient Vitals for the past 96 hrs: Weight 04/16/19 0526 100.3 kg (221 lb 1.9 oz) 04/15/19 0325 101.4 kg (223 lb 8.7 oz) 04/14/19 0332 102.4 kg (225 lb 12 oz) 04/13/19 0331 101.8 kg (224 lb 6.9 oz) Physical Examination: GEN: elderly male in no apparent distress HEAD: normocephalic EYES: no conjunctival icterus or injection ENT: MMM NECK: supple CV: warm and well perfused RESP: no increased work of breathing on ambient air ABD: soft, NT/ND, BS+, no obvious masses/organomegaly SKIN: no rashes MSK: normal muscle bulk and tone PSYCH: mood is good, affect congruent NEURO: grossly non-focal LABS: BMP 136 104 14 86 3.9 29 0.7 CaMgPhos 8.3* 2.1 LFT 18 70 18 2.0* CBC 11.71* 9.8* 318 30.6* Coag 34* 1.2 Last labs from current encounter as of 04/16/19-17:02 Recent Labs 04/14/19 0629 BNP 587.58* IMAGING: Reviewed in EPIC, no new results. PROBLEM LIST Principal Problem: Gross hematuria Active Problems: Insulin dependent diabetes mellitus Peripheral vascular disease Class 1 obesity with serious comorbidity in adult Essential hypertension Acute left hemiparesis GERD (gastroesophageal reflux disease) NSTEMI (non-ST elevated myocardial infarction) Acute decompensated heart failure Acute respiratory failure Bacteremia History of stroke Chronic pain Hypomagnesemia Other osteomyelitis of right foot Resolved Problems: * No resolved hospital problems. * ASSESSMENT & PLAN PAD Vascular surgery consulted and performed angiograms 04/11 and 04/13 and now are recommending femoral to peroneal artery bypass for critical limb ischemia. Prior to surgery they are requ esting formal cardiology consultation for cardiac clearance/medication optimization. -vascular surgery consulted, bypass surgery tentatively planned for 04/18 -continue ASA, statin Acute hypoxic respiratory failure secondary to systolic CHF exacerbation Echo 11/2017 with normal EF. Serial xrays during this hospitalization showing hypoventillati on and volume overload. Switched to torsemide 04/14. Repeat echo 04/14 showing EF 50%, grade I I DD, severely dilated LA. -continue torsemide, ARB, BB -strict Is&Os, daily weights, telemetry -IS ordered Elevated troponin Likely secondary to demand ischemia from CHF and anemia, now asymptomatic. Echo 04/14 with n oted hypokinesis of the distal inferior wall as well as part of the apex of the LV. Discusse d with cardiology who recommend nuclear medicine stress test for further risk stratification . -cardiology consulted, awaiting nuclear stress test, test done, read pending -continue ASA, statin, ARB, BB Anemia Iron panel consistent with IBIS, now s/p 3 days of IV iron, stool guaiac negative. Discussed with cardiology who based on above cardiac hx recommend goal Hgb >10. Hgb 9.8 today. -2u pRBC on 04/15, 1u today -follow up cbc in AM -follow up as outpatient to ensure up to date with age appropriate cancer screening Recent strep bacteremia Received 8 days of IV antibiotics at [facility] discharged home on with augmentin, now readmitted on 04/06 at [facility] and started on rocephin after sending 2 set of bl ood cultures which remain negative. Wound culture grew Enterobacter and Enterococcus faecali s so patient broadened to zosyn. -ID consulted -follow up blood/wound cultures Bilateral foot ulcers -podiatry consulted -wound care consulted Gross hematuria / urinary incontinence Likely secondary to traumatic miller, s/p CBI, now resolved and patient voiding spontaneousl y without miller. Patient underwent cystoscopy with evacuation of bladder clots and placement of miller catheter with CBI by Dr. Montiel on 04/10/19. -continue flomax BID Obstipation: resolved, continue lactulose HTN: normotensive, continue above meds TII DM: HgA1c of 7.8, continue lantus 30u and LDISS PPx: SQH Code status: Full Dispo: back to [facility] pending cardiac evaluation/optimization, vascular bypass donna wero, final ID recs, likely 4-5 more days in hospital Grover Charles MD 5:02 PM 04/16/2019 Portions of this chart may have been copied from previous notes for continuity of care purp ose oncetta Rodrigez RD - 04/16/2019 3:20 PM PST NUTRITION NOTE Summary Low risk follow up. Pt reports he passed his stress test today. Fluid/Beverage Intake Oral Fluids Amount: Clear liquids ad bryant. Food Intake Amount of Food: Pt reports he has been eating well, 3 meals per day and he is hungry. RN or dered pt a clear liquid tray. Per pt he doesn't like chicken or rice. Notified kitchen. Per charting pt has been eating 75-100% of meals. Type of Food/Meals: CLD (Pt was previously on a diabetic diet). Nutritionally Relevant Medications Mg, MV, Torsemide ordered Nutrition-Focused Physical Findings Skin: Wound care following. Anthropometrics Current wt: 100.3 kg. Wt is down 9 kg since admit. Per I/O's pt is 8315 ml fluid negative. Continue to monitor wt trend. Biochemical Data, Medical Test, and Procedures Recent Labs 04/16/19 0536 NA 136 K 3.9 GLU 86 BUN 14 CREA 0.7 Recommendations ADAT to DM Maintenance diet. Encourage po intake with protein rich foods. Monitor and follow as indicated. Nutritional Risk Required Follow Up: (L; 2/3) Concetta Rodrigez RD 04/16/2019 3:21 PM Sunshine Chen, [facility] - 04/16/2019 12:18 PM PST Vancomycin Dosing Per Pharmacy Subjective/Objective Reagan Shepard is a 74 y.o. male started on vancomycin 04/11 for MRSA osteomyelitis o f heel. ID has been consulted for antimicrobial management. Additional antimicrobials: zosyn Quadriplegic/Paraplegic: no Diabetes: yes Baseline Serum Creatinine: 0.6 mg/dL Current Vital Signs: BP 152/73 | Pulse 66 | Temp 36.6 C (97.8 F) (Oral) | Resp 21 | Ht 1.778 m (5' 10") | Wt 100.3 kg (221 lb 1.9 oz) | SpO2 95% | BMI 31.73 kg/m Recent Labs Lab 04/16/19 0536 04/15/19 0752 04/15/19 0636 04/14/19 0629 04/14/19 0509 WBC 11.71* -- 8.99 9.89 -- VANCOTROUGH -- 23.9* -- -- -- CREA 0.7 -- 0.76 -- 0.74 Estimated Creatinine Clearance: 113 mL/min (based on SCr of 0.7 mg/dL). Vancomycin Dosing History Date Dosing Regimen Admin Times Trough SCr Comments Day 1 04/11 2250 mg IV loading dose 1250 mg IV Q12H Planned 1130; Not Given 2348 0.9 Please note, vancomycin load of 2250 mg was ordered but never given. Per MAY, o mitted because patient unavailable. Day 2 04/12 1250 mg Q12H 1442 0.8 Dose planned for 1230 hung late due to issues with line ac cess. Loading dose ordered yesterday missed, will give one time increased dose ~12 hours fro m dose this afternoon to target trough of 15-20 mcg/mL Day 3 04/13 2000 mg IV ONCE 1250 mg IV Q12H 0206 1600- given late 2106 Planned @1330 - not drawn due to procedure 0.7 Spoke with RN to ask why 1330 vancomycin jessica weathers had not been drawn. Per RN, patient in procedure until 1500. Will time next dose for th is morning and check a level tomorrow given stable renal function. Day 4 04/14 1020 2126 Planned @0300 Drawn at 0453 20.6 Patient is also on Zosyn and nurses are putting off doses if Zosyn is infusing. Wo bonifaciod be really helpful if we could get a second line and I did communicate that to nurse. Also note this is an 8 hr level from last dose Day 5 04/15 Change to 1750 mg IV Q24H 1428 23.9 @ 0752 Patient now with PICC line and PIV The resulting level was drawn 10 hr from last dose. Increasing difficultly dosing vancomyci n due to multiple missed and late doses. Note surgery planned for Tuesday for bypass of RL E due to limb ischemia Day 6 04/16 1750 mg Q24H Due 1300 0.7 Day 7 04/17 Planned @1200 *SCr = mg/dL [vanco] = mcg/mL Assessment/Plan Renal function remains stable. Patient was transitioned to vancomycin 1750 mg Q24H yesterda y due to age, anticipated prolonged course and issues with missed/late doses. Continue vanco mycin 1750 mg Q24H. Plan for level: 04/17 @ 1200 (will check prior to 3rd dose given patient age and risk of acc umulation with BMI>30 kg/m2; also surgery is scheduled for 04/18 so increased likelyhood of m issed level/dose) Pharmacy will continue to follow and make adjustments to vancomycin therapy as indicated. Thank You, Sunshine Love, PharmD, BCCCP 04/16/19 12:16 PM Delia Bartlett RN - 04/16/2019 10:09 AM PSTPatient was educated on Congestive Heart Failure including di sease process, causes and how it will affect daily living. Discussed controlling major risk factors. Patient was told to avoid alcohol and any tobacco use. Emphasized salt restriction and reviewed how to read food labels for sodium content. Encouraged daily monitoring of the patient's weight. Magnet provided that displays heart failure zones and when to contact prov ider with complications. Discussed the benefit of physical activity and regular exercise wit h a gradual increase in activity as tolerated. Heart Failure medications discussed including usage instructions, dosages, frequencies and potential side effects. Patient encouraged to discuss medication changes with loan clerk ragini stanley to stopping medications or making any changes. Patient's questions answered. Heart Fail ure Hot Line number provided to patient. Face to face time was spent with patient providing counseling and education for congestive heart failure. Bhanu Wakefield P A-C - 04/16/2019 8:[address] [facility] Service: Vascular Surgery Progress Note SUBJECTIVE Patient Summary: 74 y.o. man with complex medical issues and LE ischemic ulcers, he wa s recently admitted to the [facility] from 03/28/19 to 04/04/19 where he was treated/ diagnosed with systolic heart failure, type 2 VA/NSTEMI, SHAE, ARF. O2 desaturation brought him from SNF to [facility] and current admission today with CHF and +tropo olivia. He is on IV heparin for his cardiac condition. Strep. agalactiae bacteremia, likely disseminated from patient non-healing diabetic foot ul cers. Patient currently being treated with oral Augmentin for this. Patient had undergone bedside debridement with Dr. Ceballos (podiatry). Events Overnight: Scheduled for nuclear stress test. NPO since midnight. OBJECTIVE Vital Signs: Vitals: 04/16/19 0735 BP: 152/73 Pulse: 66 Resp: 21 Temp: 36.6 C (97.8 F) Physical Exam Constitutional: Well nourished, no signs of distress HENT: Non icteric sclerae, oropharynx clear. Cardiovascular: Normal rate, regular rhythm Pulmonary/Chest: No respiratory distress. Abdominal: Soft. No abdominal distension or tenderness. No abdominal pulsatile mass noted. Musculoskeletal: Normal range of motion. No evidence of arthritis. Neurological: Alert and oriented. No muscle weakness and normal gait. VASCULAR: Palpable femoral pulse bilaterally. Wounds to bilateral feet, dressings on and dr montoya Dopplerable DP bilaterally. Right heel ulcer. Left lateral eschar. No drainage noted. Labs: Lab Results Component Value Date WBC 11.71 (H) 04/16/2019 HGB 9.8 (L) 04/16/2019 HCT 30.6 (L) 04/16/2019 PLT 318 04/16/2019 CHOL 55 04/06/2019 TRIG 78 04/06/2019 HDL 26 (L) 04/06/2019 LDL 13 04/06/2019 ALT 18 04/09/2019 AST 18 04/09/2019 NA 136 04/16/2019 K 3.9 04/16/2019 CL 104 04/16/2019 CREA 0.7 04/16/2019 BUN 14 04/16/2019 CO2 29 04/16/2019 INR 1.2 04/06/2019 GLUF 197 (A) 08/21/2018 PROBLEM LIST Patient Active Problem List Diagnosis Date Noted POA Essential hypertension 11/25/2017 Yes Priority: High Insulin dependent diabetes mellitus 11/22/2017 Yes Priority: High Peripheral vascular disease 11/22/2017 Yes Priority: High Osteomyelitis of right foot 11/22/2017 Unknown Priority: High Class 1 obesity with serious comorbidity in adult 11/22/2017 Yes Priority: High Gross hematuria 04/08/2019 Yes Hypomagnesemia 04/07/2019 Yes NSTEMI (non-ST elevated myocardial infarction) 04/06/2019 Unknown Acute decompensated heart failure 04/06/2019 Unknown Acute respiratory failure 04/06/2019 Unknown Bacteremia 04/06/2019 Unknown History of stroke 04/06/2019 Unknown Chronic pain 04/06/2019 Unknown Other osteomyelitis of right foot 04/05/2019 Unknown Acute osteomyelitis of calcaneum, right 07/14/2018 Unknown Sepsis 11/19/2017 Unknown Hypokalemia 05/15/2016 Unknown GERD (gastroesophageal reflux disease) 05/15/2016 Yes Acute left hemiparesis 05/14/2016 Unknown Ischemic stroke diagnosed during current admission 05/14/2016 Unknown Moderate protein-calorie malnutrition 05/14/2016 Unknown Received intravenous tissue plasminogen activator (tPA) in emergency department 017 Unknown Type 2 diabetes mellitus 05/14/2016 Unknown ASSESSMENT & PLAN Peripheral arterial disease / Bilateral gangrenous wounds of feet - Plan for right leg bypa ss surgery on 04/18/2019. Stress test today for cardiac clearance. Appreciate recommendations .. Continue medical optimization for surgery. Cryovein ordered and will be at hospital by . Anemia resolving post 2 units PRBC. Vascular will continue to follow. Code Status: Full code Bhanu Seaman PA-C Vascular Surgery rista Sutherland RN - 04/15/2019 7:21 PM PSTPt vitals stable. Wound care completed per order. PRN pain meds and diclofenac gel applied for back pain. 1 of 2 units of PBRCs started. Pt denies chest pain. N eeds and concerns addressed with pt. End of shift audit complete. Crista Sutherland RN Electron ically signed by Crista Sutherland RN at 04/15/2019 7:23 PM PSTGrover Charles MD - 04/15/2019 1 2:[address] [facility] Service: Hospitalist Progress Note Pt: Reagan Shepard AGE/SEX: 74 y.o. male ROOM: [address] [place] [address] : 1945 PCP: Jamar Manuel MD ADMIT DATE: 04/06/2019 TODAY'S DATE: 04/15/2019 Hospital Day/Hospital Course: LOS: 9 days Mr. Shepard is a 74-year-old gentleman with a history of bilateral nonhealing diabetic trisha t ulcers, and history of TBI, stroke, insulin dependent DM, who presents with CHF exacerbati on with hospital course complicated by gross hematuria. Recent history notable for admit to [facility] from 03/28/19 to 04/04/2019 for CHF exacerbation with eventual dischar ge to [facility]. He then re-presented to same hospital due to worsening SOB and again found to have CHF exacerbation though this time with elevated troponin to 0.17. Dr. Ruelas w as called and accepted the patient in transfer as a consulting physician and hospitalist ser vice called to admit the patient for further work-up and treatment. Patient also found to gee ve streptococcal agalactiae bacteremia thought to be secondary to nonhealing diabetic foot u lcers. ID consulted and has been assisting with antimicrobial regimen. Dr. Ruelas recommend medical management and work-up for anemia which revealed profound iron deficiency for which he was started on IV iron.Podiatry and wound care also consulted for bilateral foot ulcers . Hospital course also c/b gross hematuria requiring CBI and urology consult. SUBJECTIVE: Patient reporting back pain today. Bedside RN requests diclofenac gel. He otherwise feels w ell and denies chest pain, dyspnea. Remains on room air. Scheduled Medications: amLODIPine 5 mg Oral Daily aspirin 81 mg Oral Daily atorvaSTATin 10 mg Oral Nightly cadexomer iodine Topical Every Other Day carvedilol 6.25 mg Oral BID WC clopidogrel 75 mg Oral Daily DULoxetine 60 mg Oral Daily dutasteride 0.5 mg Oral Daily gabapentin 300 mg Oral TID heparin 5,000 Units Subcutaneous 2 times per day insulin glargine 30 Units Subcutaneous QAM insulin lispro 0-18 Units Subcutaneous TID WC lidocaine 1 patch Transdermal Daily losartan 50 mg Oral Daily magnesium oxide 400 mg Oral Daily piperacillin-tazobactam 3.375 g Intravenous Q8H 27-0.8 mg multivitamin 1 tablet Oral Daily psyllium 1 packet Oral TID tamsulosin 0.4 mg Oral BID torsemide 20 mg Oral Daily vancomycin 1,750 mg Intravenous Q24H vancomycin per pharmacy Other Pharmacy Consult Continuous Infusions dextrose 10% PRN Medications acetaminophen, albuterol, Hypoglycemia Management AND POCT Glucose AND dextrose A ND dextrose 10%, diclofenac, fentaNYL (PF), HYDROcodone-acetaminophen, lactulose, menthol throat lozenges, metoclopramide OR metoclopramide, ondansetron OR ondansetron, proch lorperazine Allergy: No Known Allergies OBJECTIVE: Vitals: BP 145/67 | Pulse 68 | Temp 36.7 C (98 F) (Oral) | Resp 16 | Ht 1.778 m (5' 10") | Wt 101.4 kg (223 lb 8.7 oz) | SpO2 97% | BMI 32.08 kg/m I&O Detailed Table: Intake/Output Summary (Last 24 hours) at 04/15/2019 1248 Last data filed at 04/15/2019 0922 Gross per 24 hour Intake 2069 ml Output 1176 ml Net 893 ml Patient Vitals for the past 96 hrs: Weight 04/15/19 0325 101.4 kg (223 lb 8.7 oz) 04/14/19 0332 102.4 kg (225 lb 12 oz) 04/13/19 0331 101.8 kg (224 lb 6.9 oz) 04/12/19 0418 102 kg (224 lb 13.9 oz) Physical Examination: GEN: elderly male in no apparent distress HEAD: normocephalic EYES: no conjunctival icterus or injection ENT: MMM NECK: supple CV: warm and well perfused RESP: no increased work of breathing on ambient air ABD: soft, NT/ND, BS+, no obvious masses/organomegaly SKIN: no rashes MSK: normal muscle bulk and tone PSYCH: mood is good, affect congruent NEURO: grossly non-focal LABS: BMP 136 99 14 145* 3.8 31 0.76 CaMgPhos 8.1* 2.1 LFT 18 70 18 2.0* CBC 8.99 8.2* 303 25.6* Coag 34* 1.2 Last labs from current encounter as of 04/15/19-12:48 Recent Labs 04/14/19 0629 BNP 587.58* IMAGING: Reviewed in [facility], no new results. PROBLEM LIST Principal Problem: Gross hematuria Active Problems: Insulin dependent diabetes mellitus Peripheral vascular disease Class 1 obesity with serious comorbidity in adult Essential hypertension Acute left hemiparesis GERD (gastroesophageal reflux disease) NSTEMI (non-ST elevated myocardial infarction) Acute decompensated heart failure Acute respiratory failure Bacteremia History of stroke Chronic pain Hypomagnesemia Other osteomyelitis of right foot Resolved Problems: * No resolved hospital problems. * ASSESSMENT & PLAN PAD Vascular surgery consulted and performed angiograms 04/11 and 04/13 and now are recommending femoral to peroneal artery bypass for critical limb ischemia. Prior to surgery they are requ esting formal cardiology consultation for cardiac clearance/medication optimization. -vascular surgery consutled -continue ASA, statin Acute hypoxic respiratory failure secondary to systolic CHF exacerbation Echo 11/2017 with normal EF. Serial xrays during this hospitalization showing hypoventillati on and volume overload. Switched to torsemide 04/14. Repeat echo 04/14 showing EF 50%, grade I I DD, severely dilated LA. -continue torsemide, ARB, BB -strict Is&Os, daily weights, telemetry -IS ordered Elevated troponin Likely secondary to demand ischemia from CHF and anemia, now asymptomatic. Echo 04/14 with n oted hypokinesis of the distal inferior wall as well as part of the apex of the LV. Discusse d with cardiology who recommend nuclear medicine stress test for further risk stratification . -cardiology consulted -NPO at [facility] for nuc med stress test in morning -continue ASA, statin, ARB, BB Anemia Iron panel consistent with IBIS, now s/p 3 days of IV iron, stool guaiac negative. Discussed with cardiology who based on above cardiac hx recommend goal Hgb >10. Hgb today 8.2. -2u pRBC now -follow up cbc in AM -follow up as outpatient to ensure up to date with age appropriate cancer screening Recent strep bacteremia Received 8 days of IV antibiotics at [facility] discharged home on with augmentin, now readmitted on 04/06 at [facility] and started on rocephin after sending 2 set of bl ood cultures which remain negative. Wound culture grew Enterobacter and Enterococcus faecali s so patient broadened to zosyn. -ID consulted -follow up blood/wound cultures Bilateral foot ulcers -podiatry consulted -wound care consulted Gross hematuria / urinary incontinence Likely secondary to traumatic miller, s/p CBI, now resolved and patient voiding spontaneousl y without miller. Patient underwent cystoscopy with evacuation of bladder clots and placement of miller catheter with CBI by Dr. Montiel on 04/10/19. -continue flomax BID Obstipation: resolved, continue lactulose HTN: normotensive, continue above meds TII DM: HgA1c of 7.8, continue lantus 30u and LDISS PPx: SQH Code status: Full Dispo: back to [facility] pending cardiac evaluation/optimization, vascular bypass donna wero, final ID recs, likely 4-5 more days in hospital Grover Charles MD 12:48 PM 04/15/2019 Portions of this chart may have been copied from previous notes for continuity of care purp ose roctor, Sheila Brown [facility] - 04/15/2019 10:55 AM PST Vancomycin Dosing Per Pharmacy Subjective/Objective Reagan Shepard is a 74 y.o. male started on vancomycin 04/11 for MRSA osteomyelitis o f heel. ID has been consulted for antimicrobial management. Additional antimicrobials: zosyn Quadriplegic/Paraplegic: no Diabetes: yes Baseline Serum Creatinine: 0.6 mg/dL Current Vital Signs: BP 140/65 | Pulse 65 | Temp 36.6 C (97.8 F) (Oral) | Resp 16 | Ht 1.778 m (5' 10") | Wt 101.4 kg (223 lb 8.7 oz) | SpO2 97% | BMI 32.08 kg/m Recent Labs Lab 04/15/19 0752 04/15/19 0636 04/14/19 0629 04/14/19 0509 04/13/19 0638 WBC -- 8.99 9.89 -- 11.15* VANCOTROUGH 23.9* -- -- -- -- CREA -- 0.76 -- 0.74 0.7 Estimated Creatinine Clearance: 105 mL/min (based on SCr of 0.76 mg/dL). Microbiology Results (72 hrs) No results found for the last 72 hours. Vancomycin Dosing History Date Dosing Regimen Admin Times Trough SCr Comments Day 1 04/11 2250 mg IV loading dose 1250 mg IV Q12H Planned 1130; Not Given 2348 0.9 Please note, vancomycin load of 2250 mg was ordered but never given. Per MAY, o mitted because patient unavailable. Day 2 04/12 1250 mg Q12H 1442 0.8 Dose planned for 1230 hung late due to issues with line ac cess. Loading dose ordered yesterday missed, will give one time increased dose ~12 hours fro m dose this afternoon to target trough of 15-20 mcg/mL Day 3 04/13 2000 mg IV ONCE 1250 mg IV Q12H 0206 1600- given late 2106 Planned @1330 - not drawn due to procedure 0.7 Spoke with RN to ask why 1330 vancomycin jessica weathers had not been drawn. Per RN, patient in procedure until 1500. Will time next dose for th is morning and check a level tomorrow given stable renal function. Day 04/14 1020 2126 Planned @0300 Drawn at 0453 20.6 Patient is also on Zosyn and nurses are putting off doses if Zosyn is infusing. Wo uld be really helpful if we could get a second line and I did communicate that to nurse. Also note this is an 8 hr level from last dose Day 5 04/15 Change to 1750 mg IV Q24H due 1300 23.9 @ 0752 Patient now with PICC line and P IV The resulting level was drawn 10 hr from last dose. Increasing difficultly dosing vancomyci n due to multiple missed and late doses. Note surgery planned for Tuesday for bypass of RL E due to limb ischemia *SCr = mg/dL [vanco] = mcg/mL Assessment/Plan Current Maintenance Dose: 1250 mg IV q12h New Maintenance Dose: 1750 mg IV q24h (will push out dose 5 hr from trough to allow for add itional vancomycin clearance) Rationale: Based on protocol patient would meet criteria for changing interval to q18H. Gi leslee indication (osteomyelitis) and patient likely needing extended duration of IV therapy (P ICC inserted) I am opting to decrease the dose to 1750 mg IV q24h instead of 1250 mg IV q18h r. This will provide a similar total daily dose and increase convenience of administration ( considering patient has had several missed/late doses as well). Target trough: 15-20 mcg/ml Concurrent potentially nephrotoxic medications: zosyn is known to increase risk of SHAE in c ombination with vancomycin. Culture monitoring: Will monitor culture(s) for growth, identification, and sensitivities. Plan for level: 04/17 @ 1200 (will check prior to 3rd dose given patient age and risk of acc umulation with BMI>30 kg/m2) Pharmacy will continue to follow and make adjustments to vancomycin therapy as indicated. Thank You, Sheila Ahuja, PharmD, [facility] 04/15/2019, 10:41 AM Simba Fenton MD - 04/15/2019 8:48 AM PSTDiscussion held with patient about needing a bypass for right lower extremity due to critical limb ischemia. Patient agreeable to surgery. Will need cardiac clearance prior to surgery. Cryovein has been ordered for surgery. Surgery planned for Tue. Please feel free to call with any questions or concerns. Simba Cheng MD upDebby bower RN - 04/14/2019 6:38 PM PSTPt had dual lumen PICC placed today. Miller was removed, 1175 o utput for shift. Pt due to void by 2300. Pt refused to get out of bed into the chair today a nd refused some of his turns. Wound care completed this afternoon, medicated x1 for pain. No other shift events. Chart check complete. Debby Borjas RN ero Kowalski MD - 04/14/2019 3:10 PM PSTFormatting of this note might be differ ent from the original. [facility] Service: Infectious Diseases Progress Note Hospital Day: LOS: 8 days Post-Op Day: 4 Days Post-Op CC: Follow up on osteomyelitis. Follow up on MRSA infection. SUBJECTIVE/OVERNIGHT EVENTS Continues on iv antibiotic therapy. Denies new concerns and denies side effects. No acute e vents over the last 24 hours. Intake/Output Summary (Last 24 hours) at 04/14/2019 1511 Last data filed at 04/14/2019 0338 Gross per 24 hour Intake 680 ml Output 1000 ml Net -320 ml REVIEW OF SYSTEMS . GI: denies diarrhea. Skin: denies skin rash. Constitutional: denies fever and chills. MEDICATIONS: Scheduled Meds: amLODIPine 5 mg Oral Daily aspirin 81 mg Oral Daily atorvaSTATin 10 mg Oral Nightly cadexomer iodine Topical Every Other Day carvedilol 6.25 mg Oral BID WC clopidogrel 75 mg Oral Daily DULoxetine 60 mg Oral Daily dutasteride 0.5 mg Oral Daily gabapentin 300 mg Oral TID heparin 5,000 Units Subcutaneous 2 times per day insulin glargine 30 Units Subcutaneous QAM insulin lispro 0-18 Units Subcutaneous TID WC lidocaine 1 patch Transdermal Daily losartan 50 mg Oral Daily magnesium oxide 400 mg Oral Daily piperacillin-tazobactam 3.375 g Intravenous Q8H 27-0.8 mg multivitamin 1 tablet Oral Daily psyllium 1 packet Oral TID tamsulosin 0.4 mg Oral BID torsemide 20 mg Oral Daily vancomycin 1,250 mg Intravenous Q12H vancomycin per pharmacy Other Pharmacy Consult Continuous Infusions: dextrose 10% PRN Meds:.acetaminophen, albuterol, Hypoglycemia Management AND POCT Glucose AND de xtrose AND dextrose 10%, fentaNYL (PF), HYDROcodone-acetaminophen, lactulose, menthol th roat lozenges, metoclopramide OR metoclopramide, ondansetron OR ondansetron, prochlo rperazine PHYSICAL EXAM Vital Signs: BP 157/74 | Pulse 72 | Temp 37.1 C (98.7 F) (Oral) | Resp 18 | Ht 1.778 m (5' 10") | Wt 102.4 kg (225 lb 12 oz) | SpO2 93% | BMI 32.39 kg/m Focused exam shows: General exam: No distress, cooperative with exam. HEENT: sclera non-icteric, no visible oral thrush Cardiovascular: regular rate and rhythm Lungs: no tachypnea, clear breath sounds. Mildly decreased at bases Abdomen: no distension, bowel sounds present Extremities/MSK: No edema, no joint effusions Skin: No lesions, normal turgor Neurologic: Awake, cranial nerves intact. Follows commands. Venous access: PIV. LABS: All labs were reviewed. Recent Results (from the past 24 hour(s)) POC Glucose Result Value Ref Range Glucose, POC 109 (H) 65 - 99 mg/dL POC Glucose Result Value Ref Range Glucose, POC 143 (H) 65 - 99 mg/dL ECG 12 lead Result Value Ref Range VENTRICULAR RATE EKG 62 BPM ATRIAL RATE 62 BPM P-R INTERVAL 172 ms QRS DURATION 84 ms Q-T INTERVAL 454 ms Q-T INTERVAL (CORRECTED) 460 ms P WAVE AXIS 51 degrees QRS AXIS 49 degrees T AXIS 52 degrees INTERPRETATION TEXT Normal sinus rhythm Nonspecific ST and/or T wave abnormalities There are nondiagnostic Q waves in 2, 3, and aVF. Borderline ECG When compared with ECG of 06-APR-2019 04:10, No significant change since previous ECG Confirmed by JOLEEN GRIGGS MD ([id number]) on 04/14/2019 8:20:00 AM Troponin I Result Value Ref Range Troponin I 0.015 0.00 - 0.04 ng/mL POC Glucose Result Value Ref Range Glucose, POC 166 (H) 65 - 99 mg/dL Vancomycin Level Result Value Ref Range Vancomycin Random, Serum 20.6 ug/mL Basic Metabolic Panel Result Value Ref Range Na 137 135 - 145 mmol/L K 4.2 3.5 - 4.9 mmol/L Cl 101 99 - 109 mmol/L CO2 30 23 - 32 mmol/L Anion Gap 10 5 - 20 mmol/L Glucose 123 (H) 65 - 99 mg/dL BUN 10 8 - 25 mg/dL Creatinine 0.74 0.70 - 1.30 mg/dL BUN/Creatinine Ratio 14 Calcium 8.0 (L) 8.5 - 10.5 mg/dL Estimated GFR >60 >60 mL/min/1.73m2 Troponin I Result Value Ref Range Troponin I 0.014 0.00 - 0.04 ng/mL CBC with Differential Result Value Ref Range WBC 9.89 3.80 - 11.00 K/uL RBC 3.72 (L) 4.20 - 5.70 M/uL Hemoglobin 8.0 (L) 13.2 - 17.0 g/dL Hematocrit 25.4 (L) 39.0 - 50.0 % MCV 68.5 (L) 80.0 - 100.0 fl MCH 21.5 (L) 27.0 - 34.0 pg MCHC 31.3 (L) 32.0 - 35.5 g/dL RDW-SD 51.2 37 - 53 fl Platelet Count 349 150 - 400 K/uL MPV 8.1 fl Diff Type AUTOMATED % Neutrophils 73.22 % % Lymphocytes 12.24 % Monocyte % 13.04 % Eosinophils % 0.64 % Basophils % 0.86 % Neutrophils, Absolute 7.24 1.90 - 7.40 K/uL Absolute Lymphocytes 1.21 1.00 - 3.90 K/uL Absolute Monocytes 1.29 (H) 0.00 - 0.80 K/uL Eosinophils, Absolute 0.06 0.00 - 0.50 K/uL Basophils, Absolute 0.09 0.00 - 0.10 K/uL RBC Morphology 1+ Platelet Estimate ADEQUATE B Type Natriuretic Peptide Result Value Ref Range BNP 587.58 (H) 0 - 100 pg/mL POC Glucose Result Value Ref Range Glucose, POC 126 (H) 65 - 99 mg/dL ECHO Complete w Contrast Result Value Ref Range LVEF-TTE TRANSTHORACIC ECHO 50 % Inferior Vena Cava Diameter at Expiration 2.67 cm RA PRESSURE 15 mmHg LVIDd 4.38 cm FS 15 % LA volume 95.49 mL AV mean gradient 13.63 mmHg Aortic Valve Area by Continuity VTI 2.17 cm2 MV mean gradient 7.22 mmHg MV Area by P 1/2 method 2.27 cm2 MV Area by Continuity Equation 1.86 cm2 PV peak gradient 2.92 mmHg LVOT diameter 2.42 cm LVOT peak jose roberto 100.12 cm/s LVOT peak VTI 26.72 cm AV peak jose roberto 240.91 cm/s AV VTI 56.64 cm AV peak gradient 23.22 mmHg MV peak gradient 16.33 mmHg PV mean gradient 1.65 mmHg MV Pressure 1/2 time 96.79 msec LA Volume Index 61 mL/m2 AV LVOT Peak Gradient 4.01 mmHg AV LVOT Mean Gradient 2.26 mmHg PI Peak Velocity 85.51 cm/s LV Diastolic Length 4C 9.73 cm RV Diastolic Basal Diameter 4.16 cm LV Beckett's Biplane EF 53 % LV ED Volume (Beckett's) 126.35 ml LV ED Volume Index 80 ml/m2 LV ES Volume 58.84 ml LVOT Mean Velocity 71.18 cm/s MV Deceleration Time 292.28 msec MV E/A Ratio 1.1 MV Mean Velocity 127.5 cm/s MV Peak A-Wave 139.48 cm/s MV Peak E-Wave 152.81 cm/s PV Mean Velocity 61.18 cm/s AV Mean Velocity 177.2 cm/s LA Area 29.83 cm2 LA Major 0.5664 cm LV ES Volume Index 37 ml/m2 Vitals Heart Rate Rest 83 IVS Diastolic Thickness MM 1.35 cm LVPW Diastolic Thickness MM 1.27 cm IVS Systolic Thickness MM 1.38 cm LV Systolic Diameter MM 3.71 cm LVPW Systolic Thickness MM 1.45 cm TAPSE 2.25 cm POC Glucose Result Value Ref Range Glucose, POC 153 (H) 65 - 99 mg/dL Microbiology Results (Last 14 Days by Collected Date with Culture/Sensitivity) Procedure Component Value Units Date/Time Culture, Wound, Superficial [[id number]] (Abnormal) (Susceptibility) Collected: 04/06/19 1546 Order Status: Completed Lab Status: Final result Updated: 04/11/19 8475 Specimen: Body Fluid from Heel, Right Special Requests LT FOOT Special Requests Testing performed at [facility];[address] [place] [address];[place] [address] RESULT -- 1+ ENTEROCOCCUS FAECALIS Aminoglycosides (except for high-level resistance testing), cephalosporins, clindamycin, an d trimethoprim-sulfamethoxazole may appear active in vitro but they are not effective clinic ally. RESULT -- 1+ ENTEROBACTER CLOACAE COMPLEX RESULT -- 1+ METHICILLIN RESISTANT S. AUREUS (MRSA) Susceptibility Enterococcus faecalis (1) Antibiotic Interpretation Microscan Method Status Ampicillin Sensitive SUSCEPTIBLE JESSICA Final Penicillin G Sensitive SUSCEPTIBLE JESSICA Final Gent Synergy Resistant RESISTANT JESSICA Final Levofloxacin Sensitive SUSCEPTIBLE JESSICA Final Streptomycin synergy Sensitive SUSCEPTIBLE JESSICA Final Vancomycin Sensitive SUSCEPTIBLE JESSICA Final Enterobacter cloacae complex (2) Antibiotic Interpretation Microscan Method Status Cefazolin Resistant RESISTANT JESSICA Final Cefepime Sensitive SUSCEPTIBLE JESSICA Final Cefoxitin Resistant RESISTANT JESSICA Final Ceftazidime Sensitive SUSCEPTIBLE JESSICA Final Ceftriaxone Sensitive SUSCEPTIBLE JESSICA Final Ciprofloxacin Sensitive SUSCEPTIBLE JESSICA Final Gentamicin Sensitive SUSCEPTIBLE JESSICA Final Levofloxacin Sensitive SUSCEPTIBLE JESSICA Final Tobramycin Sensitive SUSCEPTIBLE JESSICA Final Trimethoprim + Sulfamethoxazole Sensitive SUSCEPTIBLE JESSICA Final Staphylococcus aureus,Methicillin resistant (MRSA) (3) Antibiotic Interpretation Microscan Method Status Clindamycin Resistant RESISTANT JESSICA Final Erythromycin Resistant RESISTANT JESSICA Final Gentamicin Sensitive SUSCEPTIBLE JESSICA Final Levofloxacin Resistant RESISTANT JESSICA Final Moxifloxacin Resistant RESISTANT JESSICA Final Oxacillin Resistant RESISTANT JESSICA Final Tetracycline Resistant RESISTANT JESSICA Final Trimethoprim + Sulfamethoxazole Resistant RESISTANT JESSICA Final Vancomycin Sensitive SUSCEPTIBLE JESSICA Final Testing performed at [facility], [address] [place] [address] Culture, Wound, Superficial [[id number]] Collected: 04/06/19 1546 Order Status: Completed Lab Status: Final result Updated: 04/08/19 0937 Specimen: Body Fluid from Heel, Right Special Requests RIGHT FOOT Special Requests Testing performed at [facility];[address] [place] [address] RESULT -- 1+ NORMAL SKIN CELSA ISOLATED RESULT NO FURTHER WORKUP RESULT Testing performed at [facility], [address] [place] [address] Comment: Testing performed at [facility], [address] [place] [address] Culture, Blood [[id number]] Collected: 04/06/198 Order Status: Completed Lab Status: Final result Updated: 04/12/19 0652 Specimen: Peripheral Blood Special Requests R WRIST Special Requests Testing performed at [facility];[address] [place] [address] RESULT NO GROWTH 6 DAYS RESULT Testing performed at [facility], [address] [place] [address] Comment: Testing performed at [facility], [address] [place] [id number] Culture, Blood [[id number]] Collected: 04/06/19 033 Order Status: Completed Lab Status: Final result Updated: 04/12/19 0652 Specimen: Peripheral Blood Special Requests L WRIST Special Requests Testing performed at [facility];[address] [facility];[place] [address] RESULT NO GROWTH 6 DAYS RESULT Testing performed at [facility], [address] [place] [address] Comment: Testing performed at [facility], [address] [place] [address] Microbiology Results (72 hrs) No results found for the last 72 hours. IMAGING: No new images for review today. ASSESSMENT & PLAN The patient is a 74 y.o.-year-old male with the following problems: Active Hospital Problems Diagnosis Date Noted Essential hypertension 11/25/2017 Priority: High Insulin dependent diabetes mellitus 11/22/2017 Priority: High Peripheral vascular disease 11/22/2017 Priority: High Class 1 obesity with serious comorbidity in adult 11/22/2017 Priority: High Gross hematuria 04/08/2019 Hypomagnesemia 04/07/2019 NSTEMI (non-ST elevated myocardial infarction) 04/06/2019 Acute decompensated heart failure 04/06/2019 Acute respiratory failure 04/06/2019 Bacteremia 04/06/2019 History of stroke 04/06/2019 Chronic pain 04/06/2019 Other osteomyelitis of right foot 04/05/2019 GERD (gastroesophageal reflux disease) 05/15/2016 Acute left hemiparesis 05/14/2016 Resolved Hospital Problems No resolved problems to display. Clinically stable from ID standpoint. Continue current antibiotic regimen. Repeat CBC and CMP in the am. Follow vancomycin levels. Discussed with attending provider: Grover Charles MD Monitoring toxicity of iv antibiotic therapy, vancomycin, risk medication. Monitoring daily l labs, vancomycin levels. Pharmacy assisting with dosing and monitorization. Hero Richardson MD, MPH Infectious Diseases 04/14/19 Kady Strong RN - 04/14/2019 2:11 PM PSTWhile assessing pt pre PICC insertion pt reports having history of DVT in Rt arm in the 70s. He is noted to have Lt arm hemiparesis from previous C [facility]. Discussed this with Dr Charles and he is in agreement with double lumen PICC insertion in Rt arm. lliott, Kady Ferrell RN - 04/14/2019 1:[address] Richardson who is in agreement with double lumen PI CC insertion. elvin, Zachary gan MD - 04/14/2019 1:29 PM PSTFormatting of this note might be different from the origin [facility] Service: Hospitalist Progress Note Pt: Reagan Shepard AGE/SEX: 74 y.o. male ROOM: [facility]/4452- : 1945 PCP: Jamar Manuel MD ADMIT DATE: 04/06/2019 TODAY'S DATE: 04/14/2019 Hospital Day/Hospital Course: LOS: 8 days Mr. Shepard is a 74-year-old gentleman with a history of bilateral nonhealing diabetic trisha t ulcers, and history of TBI, stroke, insulin dependent DM, who presents with CHF exacerbati on with hospital course complicated by gross hematuria. Recent history notable for admit to [facility] from 03/28/19 to 04/04/2019 for CHF exacerbation with eventual dischar ge to [facility]. He then re-presented to same hospital due to worsening SOB and again found to have CHF exacerbation though this time with elevated troponin to 0.17. Dr. Ruelas w as called and accepted the patient in transfer as a consulting physician and hospitalist ser vice called to admit the patient for further work-up and treatment. Patient also found to gee ve streptococcal agalactiae bacteremia thought to be secondary to nonhealing diabetic foot u lcer for which she was treated with 8 days of IV antibiotics then discharged home on oral Au gmentin. Patient started on Rocephin IV, wound culture grew Enterobacter and enterococcal an d then antibiotics changed to Zosyn on 09 April after talking to infectious disease. Dr. Ruelas recommend medical management and work-up for anemia which revealed profound iron def iciency for which he was started on IV iron.Podiatry and wound care also consulted for karen ateral foot ulcers. Hospital course also c/b gross hematuria requiring CBI and urology consu lt. SUBJECTIVE: Patient reports feeling okay. Dyspnea from yesterday is a bit improved. Denies chest pain. States he hopes his procedure on Tuesday goes well. Scheduled Medications: amLODIPine 5 mg Oral Daily aspirin 81 mg Oral Daily atorvaSTATin 10 mg Oral Nightly cadexomer iodine Topical Every Other Day carvedilol 6.25 mg Oral BID WC clopidogrel 75 mg Oral Daily DULoxetine 60 mg Oral Daily dutasteride 0.5 mg Oral Daily gabapentin 300 mg Oral TID heparin 5,000 Units Subcutaneous 2 times per day insulin glargine 30 Units Subcutaneous QAM insulin lispro 0-18 Units Subcutaneous TID WC lidocaine 1 patch Transdermal Daily losartan 50 mg Oral Daily magnesium oxide 400 mg Oral Daily piperacillin-tazobactam 3.375 g Intravenous Q8H 27-0.8 mg multivitamin 1 tablet Oral Daily psyllium 1 packet Oral TID tamsulosin 0.4 mg Oral BID torsemide 20 mg Oral Daily vancomycin 1,250 mg Intravenous Q12H vancomycin per pharmacy Other Pharmacy Consult Continuous Infusions dextrose 10% PRN Medications acetaminophen, albuterol, Hypoglycemia Management AND POCT Glucose AND dextrose A ND dextrose 10%, fentaNYL (PF), HYDROcodone-acetaminophen, lactulose, menthol throat lozen ges, metoclopramide OR metoclopramide, ondansetron OR ondansetron, prochlorperazine Allergy: No Known Allergies OBJECTIVE: Vitals: BP 157/74 | Pulse 72 | Temp 37.1 C (98.7 F) (Oral) | Resp 18 | Ht 1.778 m (5' 10") | Wt 102.4 kg (225 lb 12 oz) | SpO2 93% | BMI 32.39 kg/m I&O Detailed Table: Intake/Output Summary (Last 24 hours) at 04/14/2019 1329 Last data filed at 04/14/2019 0338 Gross per 24 hour Intake 680 ml Output 1000 ml Net -320 ml Patient Vitals for the past 96 hrs: Weight 04/14/19 0332 102.4 kg (225 lb 12 oz) 04/13/19 0331 101.8 kg (224 lb 6.9 oz) 04/12/19 0418 102 kg (224 lb 13.9 oz) 04/11/19 0326 113.3 kg (249 lb 12.5 oz) Physical Examination: GEN: elderly male in no apparent distress HEAD: normocephalic EYES: no conjunctival icterus or injection ENT: MMM NECK: supple CV: warm and well perfused RESP: no increased work of breathing on ambient air ABD: soft, NT/ND, BS+, no obvious masses/organomegaly : miller in place with miller bag draining clear/yellow urine SKIN: no rashes MSK: normal muscle bulk and tone PSYCH: mood is good, affect congruent NEURO: grossly non-focal LABS: BMP 137 101 10 123* 4.2 30 0.74 CaMgPhos 8.0* 2.1 LFT 18 70 18 2.0* CBC 9.89 8.0* 349 25.4* Coag 34* 1.2 Last labs from current encounter as of 04/14/19-13:29 Recent Labs 04/14/19 0629 BNP 587.58* IMAGING: Reviewed in EPIC, no new results. PROBLEM LIST Principal Problem: Gross hematuria Active Problems: Insulin dependent diabetes mellitus Peripheral vascular disease Class 1 obesity with serious comorbidity in adult Essential hypertension Acute left hemiparesis GERD (gastroesophageal reflux disease) NSTEMI (non-ST elevated myocardial infarction) Acute decompensated heart failure Acute respiratory failure Bacteremia History of stroke Chronic pain Hypomagnesemia Other osteomyelitis of right foot Resolved Problems: * No resolved hospital problems. * ASSESSMENT & PLAN Acute hypoxic respiratory failure secondary to systolic CHF exacerbation Echo 11/2017 with normal EF. Serial xrays during this hospitalization with hypoventillation and volume overload. Reported new shortness of breath yesterday with repeat xray again showi ng volume overload. UOP only 1350/24h, suspect not diuresing to lasix, switch to torsemide t zohaib and will follow up echo which has been ordered. -continue torsemide, ARB, BB -follow up echo -strict Is&Os, daily weights, telemetry -IS ordered Recent strep bacteremia Received 8 days of IV antibiotics at [facility] discharged home on with augmentin, now readmitted on 04/06 at [facility] and started on rocephin after sending 2 set of bl ood cultures which remain negative. Wound culture grew Enterobacter and Enterococcus faecali s so patient broadened to zosyn. -ID consulted -follow up blood/wound cultures PAD -vascular surgery consulted, patient to need femoral to peroneal artery bypass for critical limb ischemia -angiograms 04/11 and 04/16 -continue ASA, statin Bilateral foot ulcers -podiatry consulted -wound care consulted Gross hematuria / urinary incontinence Likely secondary to traumatic miller, s/p CBI, now resolved. Patient underwent cystoscopy wi th evacuation of bladder clots and placement of miller catheter with CBI by Dr. Montiel on 03/22 04/09. -remove miller today, voiding trial per protocol -continue flomax BID Elevated troponin Likely secondary to demand ischemia from CHF and anemia, now asymptomatic. -cardiology consulted and recommended medical management -continue ASA, statin, ARB, BB Obstipation: resolved, continue lactulose HTN: normotensive, continue above meds TII DM: HgA1c of 7.8, continue lantus 30u and LDISS Iron deficiency anemia: s/p 3 days of IV iron, guaiac stool negative, follow up outpatient to ensure up to date with age appropriate cancer screening PPx: [facility] Code status: Full Dispo: back to [facility] pending improvement in gross hematuria, CHF exacerbation, re peat angiogram, final ID recs, likely 4-5 more days in hospital Grover Charles MD 1:29 PM 04/14/2019 Portions of this chart may have been copied from previous notes for continuity of care purp ose Lyric Molina RN - 04/14/2019 1:[address] [facility] Service: Wound Care Follow Up Note Hospital Day: 8 Post-Op Day: 11/21/2017 SUBJECTIVE Patient Summary: Wound care came to see Reagan today to follow up on his bilateral foot wounds. OBJECTIVE 04/14/19 1327 Visit Information Visit Type Wound re-assessment Missed Treatment Declined PROBLEM LIST Patient Active Problem List Diagnosis Sepsis Insulin dependent diabetes mellitus Peripheral vascular disease Osteomyelitis of right foot Class 1 obesity with serious comorbidity in adult Essential hypertension Acute left hemiparesis Acute osteomyelitis of calcaneum, right Hypokalemia GERD (gastroesophageal reflux disease) Ischemic stroke diagnosed during current admission Moderate protein-calorie malnutrition Received intravenous tissue plasminogen activator (tPA) in emergency department Type 2 diabetes mellitus NSTEMI (non-ST elevated myocardial infarction) Acute decompensated heart failure Acute respiratory failure Bacteremia History of stroke Chronic pain Hypomagnesemia Gross hematuria Other osteomyelitis of right foot ASSESSMENT & PLAN Pt declined assessment because the dressing had just been changed and he didn't want me "me ssing with it". No change to wound care recommendations at this time and f/u early next week to reassess wounds. I will continue to follow with you. Please call if there are any additional questions. Lyric Mclain RN, CMSRN, [facility] Inpatient Wound Ostomy Care [phone] 04/14/2019 1:29 PM Dheeraj Barraza, PT - 04/14/2019 12:57 PM PSTMISSED THERAPY VISIT Physical Therapy attempted to see the following patient today: Reagan Shepard Missed Visit (patient declined) Pt declined therapy today stating that "I have already been up to a chair yesterday and tod ay and I don't want to be up today". Advised pt that being up is going to help him improve a nd he continued to decline therapy. Vandana Peterson RN - 04/14/2019 7:47 AM PSTLeft groin site soft pulse continue to be faint by doppler. 3 IV attempts unsuccessful. Will ask Day RN to look into a dual lumen PICC Pharm. Aware of delay to vanco. Newest trough is 20.5 pharm recommend to push back next dose till 10:00am. Patien t does not like to be turned dressing are clean dry and intact urine is still pink and overn ight chest pain resolved with negative trops and ekg so far vs stable.Vandana Luciano RN Meghan Alejandre [facility] - 04/14/2019 6:31 AM PST Vancomycin Dosing Per Pharmacy Subjective/Objective Reagan Shepard is a 74 y.o. male started on vancomycin 04/11 for osteomyelitis of omar l. Additional antimicrobials: zosyn Quadriplegic/Paraplegic: no Diabetes: yes Baseline Serum Creatinine: 0.6 mg/dL Current Vital Signs: BP 135/64 | Pulse 58 | Temp 36.2 C (97.2 F) (Oral) | Resp 19 | Ht 1.778 m (5' 10") | Wt 102.4 kg (225 lb 12 oz) | SpO2 95% | BMI 32.39 kg/m Recent Labs Lab 04/14/19 0509 04/13/19 0638 04/12/19 0620 04/11/19 0548 WBC -- 11.15* 10.54 12.50* CREA 0.74 0.7 0.8 0.9 Estimated Creatinine Clearance: 108 mL/min (based on SCr of 0.74 mg/dL). Microbiology Results (72 hrs) No results found for the last 72 hours. Vancomycin Dosing History Date Dosing Regimen Admin Times Trough SCr Comments Day 1 04/11 2250 mg IV loading dose 1250 mg IV Q12H Planned 1130; Not Given 2348 0.9 Please note, vancomycin load of 2250 mg was ordered but never given. Per MAY, o mitted because patient unavailable. Day 2 04/12 1250 mg Q12H 1430 0.8 Dose planned for 1230 hung late due to issues with line ac cess. Loading dose ordered yesterday missed, will give one time increased dose ~12 hours fro m dose this afternoon to target trough of 15-20 mcg/mL Day 3 04/13 2000 mg IV ONCE 1250 mg IV Q12H 0206 1600 Planned @1330 - not drawn due to procedure 0.7 Spoke with RN to ask why 1330 vancomycin jessica weathers had not been drawn. Per RN, patient in procedure until 1500. Will time next dose for th is morning and check a level tomorrow given stable renal function. Day 4 04/14 0900 Planned @0300 Drawn at 0453 20.6 Patient is also on Zosyn and nurses are putting off doses if Zosyn is infusing. Wo uld be really helpful if we could get a second line and I did communicate that to nurse. Day 5 *SCr = mg/dL [vanco] = mcg/mL Assessment/Plan Maintenance Dose: 1250 mg IV q12h Rationale: Based on Kadlec dosing nomogram, current renal function, and desired trough. Christoph peres received a load 26 hours before this level since original load was missed. I am pushi ng out the next dose a few hours to get below 20 and then will continue current dosing. The level was drawn only 8 hours after the last dose. Target trough: 15-20 mcg/ml Concurrent potentially nephrotoxic medications: zosyn Culture monitoring: Will monitor culture(s) for growth, identification, and sensitivities. Plan for level: 04/15/2019 at 0800. Pharmacy will continue to follow and make adjustments to vancomycin therapy as indicated. Thank You, Meghan Calvillo, Pharm D, BCPS 04/14/2019, 6:19 AM Vancomycin Dosing History Date Dosing Regimen Admin Times Trough SCr Comments Day 1 04/11 2250 mg IV loading dose 1250 mg IV Q12H Planned 1130; Not Given 2348 0.9 Please note, vancomycin load of 2250 mg was ordered but never given. Per MAY, o mitted because patient unavailable. Day 2 04/12 1250 mg Q12H 1430 0.8 Dose planned for 1230 hung late due to issues with line ac cess. Loading dose ordered yesterday missed, will give one time increased dose ~12 hours fro m dose this afternoon to target trough of 15-20 mcg/mL Day 3 04/13 2000 mg IV ONCE 1250 mg IV Q12H 0206 1600 Planned @1330 - not drawn due to procedure 0.7 Spoke with RN to ask why 1330 vancomycin l evel had not been drawn. Per RN, patient in procedure until 1500. Will time next dose for th is morning and check a level tomorrow given stable renal function. Day 4 04/14 Planned @0300 Day 5 *SCr = mg/dL [vanco] = mcg/mL Deirdre Stallings R N - 04/13/2019 6:36 PM PSTSafety precautions continued. Alert and oriented x3. Intermittent restlessness. Bedrest and to keep LLE immobile and straight until 1930. L groin site mynx, dressing stained. However, site is clean and dry, no bruising or oozing. Site is soft to the touch. BLE pulses are weak. Denies pain when asked. Vital signs are stable throughout shif t. Call button within reach. Will continue to monitor patient. End of shift chart check complete. Grover Shaver MD - 04/13/2019 4:[address] [facility] Service: Hospitalist Progress Note Pt: Reagan Shepard AGE/SEX: 74 y.o. male ROOM: 4452/4452-01 : 1945 PCP: Jamar Manuel MD ADMIT DATE: 04/06/2019 TODAY'S DATE: 04/13/2019 Hospital Day/Hospital Course: LOS: 7 days Mr. Shepard is a 74-year-old gentleman with a history of bilateral nonhealing diabetic trisha t ulcers, and history of TBI, stroke, insulin dependent DM, who presents with CHF exacerbati on with hospital course complicated by gross hematuria. Recent history notable for admit to [facility] from 03/28/19 to 04/04/2019 for CHF exacerbation with eventual dischar ge to [facility]. He then re-presented to same hospital due to worsening SOB and again found to have CHF exacerbation though this time with elevated troponin to 0.17. Dr. Ruelas w as called and accepted the patient in transfer as a consulting physician and hospitalist ser vice called to admit the patient for further work-up and treatment. Patient also found to gee ve streptococcal agalactiae bacteremia thought to be secondary to nonhealing diabetic foot u lcer for which she was treated with 8 days of IV antibiotics then discharged home on oral Au gmentin. Patient started on Rocephin IV, wound culture grew Enterobacter and enterococcal an d then antibiotics changed to Zosyn on 09 April after talking to infectious disease. Dr. Ruelas recommend medical management and work-up for anemia which revealed profound iron def iciency for which he was started on IV iron.Podiatry and wound care also consulted for kraen ateral foot ulcers. Hospital course also c/b gross hematuria requiring CBI and urology consu lt. SUBJECTIVE: Patient feels okay today. He is awaiting his angiogram procedure. States he has some shortn ess of breath today. Denies orthopnea. Remains on room air. Scheduled Medications: amLODIPine 5 mg Oral Daily aspirin 81 mg Oral Daily atorvaSTATin 10 mg Oral Nightly cadexomer iodine Topical Every Other Day carvedilol 6.25 mg Oral BID WC clopidogrel 75 mg Oral Daily DULoxetine 60 mg Oral Daily dutasteride 0.5 mg Oral Daily furosemide 40 mg Oral Daily gabapentin 300 mg Oral TID heparin 5,000 Units Subcutaneous 2 times per day insulin glargine 30 Units Subcutaneous QAM insulin lispro 0-12 Units Subcutaneous 4x Daily WC and HS lidocaine 1 patch Transdermal Daily losartan 50 mg Oral Daily magnesium oxide 400 mg Oral Daily piperacillin-tazobactam 3.375 g Intravenous Q8H 27-0.8 mg multivitamin 1 tablet Oral Daily psyllium 1 packet Oral TID tamsulosin 0.4 mg Oral Nightly vancomycin 1,250 mg Intravenous Q12H vancomycin per pharmacy Other Pharmacy Consult Continuous Infusions dextrose 10% PRN Medications acetaminophen, albuterol, Hypoglycemia Management AND POCT Glucose AND dextrose A ND dextrose 10%, fentaNYL (PF), HYDROcodone-acetaminophen, lactulose, menthol throat lozen ges, metoclopramide OR metoclopramide, morphine, ondansetron OR ondansetron, oxyCODO NE, prochlorperazine Allergy: No Known Allergies OBJECTIVE: Vitals: BP 169/77 | Pulse 67 | Temp 36.8 C (98.2 F) (Oral) | Resp 18 | Ht 1.778 m (5' 10") | Wt 101.8 kg (224 lb 6.9 oz) | SpO2 93% | BMI 32.20 kg/m I&O Detailed Table: Intake/Output Summary (Last 24 hours) at 04/13/2019 1602 Last data filed at 04/13/2019 1000 Gross per 24 hour Intake 1265 ml Output 850 ml Net 415 ml Patient Vitals for the past 96 hrs: Weight 04/13/19 0331 101.8 kg (224 lb 6.9 oz) 04/12/19 0418 102 kg (224 lb 13.9 oz) 04/11/19 0326 113.3 kg (249 lb 12.5 oz) Physical Examination: GEN: elderly male in no apparent distress HEAD: normocephalic EYES: no conjunctival icterus or injection ENT: MMM NECK: supple CV: warm and well perfused RESP: no increased work of breathing on ambient air ABD: soft, NT/ND, BS+, no obvious masses/organomegaly : miller in place with CBI with miller bag draining clear/yellow urine SKIN: no rashes MSK: normal muscle bulk and tone PSYCH: mood is good, affect congruent NEURO: grossly non-focal LABS: BMP 137 101 18 113* 3.8 33* 0.7 CaMgPhos 8.2* 2.1 LFT 18 70 18 2.0* CBC 11.15* 8.0* 359 25.5* Coag 34* 1.2 Last labs from current encounter as of 04/13/19-16:02 Recent Labs 04/11/19 0548 BNP 220.45* No results for input(s): APTT, INR, PTT in the last 168 hours. IMAGING: Reviewed in EPIC, no new results. PROBLEM LIST Principal Problem: Gross hematuria Active Problems: Insulin dependent diabetes mellitus Peripheral vascular disease Class 1 obesity with serious comorbidity in adult Essential hypertension Acute left hemiparesis GERD (gastroesophageal reflux disease) NSTEMI (non-ST elevated myocardial infarction) Acute decompensated heart failure Acute respiratory failure Bacteremia History of stroke Chronic pain Hypomagnesemia Other osteomyelitis of right foot Resolved Problems: * No resolved hospital problems. * ASSESSMENT & PLAN Acute hypoxic respiratory failure secondary to systolic CHF exacerbation Echo 11/2017 with normal EF. Serial xrays during this hospitalization with hypoventillation and possible volume overload. Now weaned from oxygen. Reporting new shortness of breath toda y, will obtain repeat chest radiograph. -continue lasix, ARB, BB -IS ordered -follow up repeat CXR -strict Is&Os, daily weights, telemetry Recent strep bacteremia Received 8 days of IV antibiotics at [facility] discharged home on with augmentin, now readmitted on 04/06 at [facility] and started on rocephin after sending 2 set of bl ood cultures which remain negative. Wound culture grew Enterobacter and Enterococcus faecali s so patient broadened to zosyn. -ID consulted -follow up blood/wound cultures PAD -vascular surgery consulted -angiogram 04/11 and again today 04/16 -continue ASA, statin Bilateral foot ulcers -podiatry consulted -wound care consulted Gross hematuria / urinary incontinence Likely secondary to traumatic miller, s/p CBI, now resolved. Patient underwent cystoscopy wi th evacuation of bladder clots and placement of miller catheter with CBI by Dr. Montiel on 03/22 04/09. -urology consulted, miller in place (okay to remove tomorrow) -continue flomax -> change to BID per discussion with urology Elevated troponin Likely secondary to demand ischemia from CHF and anemia, now asymptomatic. -cardiology consulted and recommended medical management -continue ASA, statin, ARB, BB Obstipation: resolved, continue lactulose HTN: normotensive, continue above meds TII DM: HgA1c of 7.8, continue lantus 30u and LDISS Iron deficiency anemia: s/p 3 days of IV iron, guaiac stool negative, follow up outpatient to ensure up to date with age appropriate cancer screening PPx: [facility] Code status: Full Dispo: back to [facility] pending improvement in gross hematuria, CHF exacerbation, re peat angiogram, final ID recs, likely 4-5 more days in hospital Grover Charles MD 4:02 PM 04/13/2019 Portions of this chart may have been copied from previous notes for continuity of care purp ose Sunshine Chen R PH - 04/13/2019 3:20 PM PST Vancomycin Dosing Per Pharmacy Subjective/Objective Reagan Shepard is a 74 y.o. 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 Additional antimicrobials: zosyn Quadriplegic/Paraplegic: no Diabetes: yes Baseline Serum Creatinine: 0.6 mg/dL Actual weight: 113.3 kg Adjusted body weight: 89.1 kg Agency body weight: 73 kg Current Vital Signs: BP 169/77 | Pulse 69 | Temp 36.8 C (98.2 F) (Oral) | Resp 18 | Ht 1.778 m (5' 10") | Wt 101.8 kg (224 lb 6.9 oz) | SpO2 93% | BMI 32.20 kg/m Recent Labs Lab 04/13/19 0638 04/12/19 0620 04/11/19 0548 WBC 11.15* 10.54 12.50* CREA 0.7 0.8 0.9 Estimated Creatinine Clearance: 114 mL/min (based on SCr of 0.7 mg/dL). Vancomycin Dosing History Date Dosing Regimen Admin Times Trough SCr Comments Day 1 04/11 2250 mg IV loading dose 1250 mg IV Q12H Planned 1130; Not Given 2348 0.9 Please note, vancomycin load of 2250 mg was ordered but never given. Per MAR, o mitted because patient unavailable. Day 2 04/12 1250 mg Q12H 1430 0.8 Dose planned for 1230 hung late due to issues with line ac cess. Loading dose ordered yesterday missed, will give one time increased dose ~12 hours fro m dose this afternoon to target trough of 15-20 mcg/mL Day 3 04/13 2000 mg IV ONCE 1250 mg IV Q12H 0206 1600 Planned @1330 - not drawn due to procedure 0.7 Spoke with RN to ask why 1330 vancomycin l evel had not been drawn. Per RN, patient in procedure until 1500. Will time next dose for th is morning and check a level tomorrow given stable renal function. Day 04/14 Planned @0300 Day 5 *SCr = mg/dL [vanco] = mcg/mL Assessment/Plan Vancomycin level planned for this afternoon was not drawn due to patient being away at a [facility]. Drawing a level once the patient returns will not provide an accurate assessment of Q12H dosing regimen. The patient's renal function remains stable, so I will order a mainten ance dose of 1250 mg Q12H with the first dose to be given now and check a level tomorrow mor martell. Culture monitoring: Will monitor culture(s) for growth, identification, and sensitivities. Plan for level: 04/14 @0300 Pharmacy will continue to follow and make adjustments to vancomycin therapy as indicated. Thank You, Sunshine Love, PharmD, [facility] 04/13/19 3:20 PM Nandini Sánchez se, MD - 04/13/2019 10:[address] [facility] Service: Infectious Diseases Progress Note Hospital Day: LOS: 7 days Post-Op Day: 3 Days Post-Op CC: Follow up on osteomyelitis. Follow up on MRSA infection. SUBJECTIVE/OVERNIGHT EVENTS Continues on iv antibiotic therapy. Denies new concerns and denies side effects. Tolerating antibiotics well. No acute events over the last 24 hours. Intake/Output Summary (Last 24 hours) at 04/13/2019 1054 Last data filed at 04/13/2019 1000 Gross per 24 hour Intake 1465 ml Output 1350 ml Net 115 ml REVIEW OF SYSTEMS . GI: denies diarrhea. Skin: denies skin rash. Constitutional: denies fever and chills. Respi ratory: denies difficulty breathing. MEDICATIONS: Scheduled Meds: amLODIPine 5 mg Oral Daily aspirin 81 mg Oral Daily atorvaSTATin 10 mg Oral Nightly cadexomer iodine Topical Every Other Day carvedilol 6.25 mg Oral BID WC clopidogrel 75 mg Oral Daily DULoxetine 60 mg Oral Daily dutasteride 0.5 mg Oral Daily furosemide 40 mg Oral Daily gabapentin 300 mg Oral TID heparin 5,000 Units Subcutaneous 2 times per day insulin glargine 30 Units Subcutaneous QAM insulin lispro 0-12 Units Subcutaneous 4x Daily WC and HS lidocaine 1 patch Transdermal Daily losartan 50 mg Oral Daily magnesium oxide 400 mg Oral Daily piperacillin-tazobactam 3.375 g Intravenous Q8H 27-0.8 mg multivitamin 1 tablet Oral Daily psyllium 1 packet Oral TID tamsulosin 0.4 mg Oral Nightly vancomycin per pharmacy Other Pharmacy Consult Continuous Infusions: dextrose 10% PRN Meds:.acetaminophen, albuterol, Hypoglycemia Management AND POCT Glucose AND de xtrose AND dextrose 10%, fentaNYL (PF), HYDROcodone-acetaminophen, lactulose, menthol th roat lozenges, metoclopramide OR metoclopramide, morphine, ondansetron OR ondansetro n, oxyCODONE, prochlorperazine PHYSICAL EXAM Vital Signs: BP 165/80 | Pulse 64 | Temp 36.2 C (97.1 F) (Axillary) | Resp 20 | Ht 1.778 m (5' 1 0") | Wt 101.8 kg (224 lb 6.9 oz) | SpO2 98% | BMI 32.20 kg/m Focused exam shows: General exam: No distress, cooperative with exam. HEENT: sclera non-icteric, no visible oral thrush Cardiovascular: regular rate and rhythm Lungs: no tachypnea, clear breath sounds. Mildly decreased at bases Abdomen: no distension, bowel sounds present Extremities/MSK: No edema, no joint effusions Skin: No lesions, normal turgor Neurologic: Awake, cranial nerves intact. Follows commands. Venous access: PIV. LABS: All labs were reviewed. Recent Results (from the past 24 hour(s)) POC Glucose Result Value Ref Range Glucose, POC 162 (H) 65 - 99 mg/dL POC Glucose Result Value Ref Range Glucose, POC 211 (H) 65 - 99 mg/dL POC Glucose Result Value Ref Range Glucose, POC 183 (H) 65 - 99 mg/dL POC Glucose Result Value Ref Range Glucose, POC 147 (H) 65 - 99 mg/dL CBC with Differential Result Value Ref Range WBC 11.15 (H) 3.80 - 11.00 K/uL RBC 3.70 (L) 4.20 - 5.70 M/uL Hemoglobin 8.0 (L) 13.2 - 17.0 g/dL Hematocrit 25.5 (L) 39.0 - 50.0 % MCV 68.8 (L) 80.0 - 100.0 fl MCH 21.6 (L) 27.0 - 34.0 pg MCHC 31.5 (L) 32.0 - 35.5 g/dL RDW-SD 51.2 37 - 53 fl Platelet Count 359 150 - 400 K/uL MPV 8.5 fl Diff Type AUTOMATED % Neutrophils 75.90 % % Lymphocytes 10.49 % Monocyte % 11.55 % Eosinophils % 1.38 % Basophils % 0.68 % Neutrophils, Absolute 8.46 (H) 1.90 - 7.40 K/uL Absolute Lymphocytes 1.17 1.00 - 3.90 K/uL Absolute Monocytes 1.29 (H) 0.00 - 0.80 K/uL Eosinophils, Absolute 0.15 0.00 - 0.50 K/uL Basophils, Absolute 0.08 0.00 - 0.10 K/uL RBC Morphology 1+ Basic Metabolic Panel Result Value Ref Range Na 137 135 - 145 mmol/L K 3.8 3.5 - 4.9 mmol/L Cl 101 99 - 109 mmol/L CO2 33 (H) 23 - 32 mmol/L Anion Gap 7 5 - 20 mmol/L Glucose 113 (H) 65 - 99 mg/dL BUN 18 8 - 25 mg/dL Creatinine 0.7 0.70 - 1.30 mg/dL BUN/Creatinine Ratio 26 Calcium 8.2 (L) 8.5 - 10.5 mg/dL Estimated GFR >60 >60 mL/min/1.73m2 POC Glucose Result Value Ref Range Glucose, POC 124 (H) 65 - 99 mg/dL Microbiology Results (Last 14 Days by Collected Date with Culture/Sensitivity) Procedure Component Value Units Date/Time Culture, Wound, Superficial [[id number]] (Abnormal) (Susceptibility) Collected: 04/06/19 1546 Order Status: Completed Lab Status: Final result Updated: 04/11/1928 Specimen: Body Fluid from Heel, Right Special Requests LT FOOT Special Requests Testing performed at [facility];[address] [place] [address];[place] [address] RESULT -- 1+ ENTEROCOCCUS FAECALIS Aminoglycosides (except for high-level resistance testing), cephalosporins, clindamycin, an d trimethoprim-sulfamethoxazole may appear active in vitro but they are not effective clinic ally. RESULT -- 1+ ENTEROBACTER CLOACAE COMPLEX RESULT -- 1+ METHICILLIN RESISTANT S. AUREUS (MRSA) Susceptibility Enterococcus faecalis (1) Antibiotic Interpretation Microscan Method Status Ampicillin Sensitive SUSCEPTIBLE JESSICA Final Penicillin G Sensitive SUSCEPTIBLE JESSICA Final Gent Synergy Resistant RESISTANT JESSICA Final Levofloxacin Sensitive SUSCEPTIBLE JESSICA Final Streptomycin synergy Sensitive SUSCEPTIBLE JESSICA Final Vancomycin Sensitive SUSCEPTIBLE JESSICA Final Enterobacter cloacae complex (2) Antibiotic Interpretation Microscan Method Status Cefazolin Resistant RESISTANT JESSICA Final Cefepime Sensitive SUSCEPTIBLE JESSICA Final Cefoxitin Resistant RESISTANT JESSICA Final Ceftazidime Sensitive SUSCEPTIBLE JESSICA Final Ceftriaxone Sensitive SUSCEPTIBLE JESSICA Final Ciprofloxacin Sensitive SUSCEPTIBLE JESSICA Final Gentamicin Sensitive SUSCEPTIBLE JESSICA Final Levofloxacin Sensitive SUSCEPTIBLE JESSICA Final Tobramycin Sensitive SUSCEPTIBLE JESSICA Final Trimethoprim + Sulfamethoxazole Sensitive SUSCEPTIBLE JESSICA Final Staphylococcus aureus,Methicillin resistant (MRSA) (3) Antibiotic Interpretation Microscan Method Status Clindamycin Resistant RESISTANT JESSICA Final Erythromycin Resistant RESISTANT JESSICA Final Gentamicin Sensitive SUSCEPTIBLE JESSICA Final Levofloxacin Resistant RESISTANT JESSICA Final Moxifloxacin Resistant RESISTANT JESSICA Final Oxacillin Resistant RESISTANT JESSICA Final Tetracycline Resistant RESISTANT JESSICA Final Trimethoprim + Sulfamethoxazole Resistant RESISTANT JESSICA Final Vancomycin Sensitive SUSCEPTIBLE JESSICA Final Testing performed at [facility], [address] [place] [address], [place] [address] Culture, Wound, Superficial [[id number]] Collected: 04/06/19 1546 Order Status: Completed Lab Status: Final result Updated: 04/08/19 0937 Specimen: Body Fluid from Heel, Right Special Requests RIGHT FOOT Special Requests Testing performed at [facility];[address] [place] [id number] RESULT -- 1+ NORMAL SKIN CELSA ISOLATED RESULT NO FURTHER WORKUP RESULT Testing performed at [facility], [address] [place] [id number] Comment: Testing performed at [facility], [address] [place] [address] Culture, Blood [[id number]] Collected: 04/06/19 0338 Order Status: Completed Lab Status: Final result Updated: 04/12/19 0652 Specimen: Peripheral Blood Special Requests R WRIST Special Requests Testing performed at [facility];[address] [place] [id number] RESULT NO GROWTH 6 DAYS RESULT Testing performed at [facility], [address] [place] [phone] Comment: Testing performed at [facility], [address] [place] [id number] Culture, Blood [[id number]] Collected: 04/06/19 0331 Order Status: Completed Lab Status: Final result Updated: 04/12/19 0652 Specimen: Peripheral Blood Special Requests L WRIST Special Requests Testing performed at [facility];[address] [place] [id number] RESULT NO GROWTH 6 DAYS RESULT Testing performed at [facility], [address] [place] [phone] Comment: Testing performed at [facility], [address] [place] [phone] Microbiology Results (72 hrs) No results found for the last 72 hours. IMAGING: No new images for review today. ASSESSMENT & PLAN The patient is a 74 y.o.-year-old male with the following problems: Active Hospital Problems Diagnosis Date Noted Essential hypertension 11/25/2017 Priority: High Insulin dependent diabetes mellitus 11/22/2017 Priority: High Peripheral vascular disease 11/22/2017 Priority: High Class 1 obesity with serious comorbidity in adult 11/22/2017 Priority: High Gross hematuria 04/08/2019 Hypomagnesemia 04/07/2019 NSTEMI (non-ST elevated myocardial infarction) 04/06/2019 Acute decompensated heart failure 04/06/2019 Acute respiratory failure 04/06/2019 Bacteremia 04/06/2019 History of stroke 04/06/2019 Chronic pain 04/06/2019 Other osteomyelitis of right foot 04/05/2019 GERD (gastroesophageal reflux disease) 05/15/2016 Acute left hemiparesis 05/14/2016 Resolved Hospital Problems No resolved problems to display. Clinically stable from ID standpoint. Continue current antibiotic regimen. Follow vancomycin levels. Discussed with attending provider: Grover Charles MD Monitoring toxicity of iv antibiotic therapy, vancomycin, risk medication. Monitoring daily l labs, vancomycin levels. Pharmacy assisting with dosing and monitorization. Hero Richardson MD, MPH Infectious Diseases 04/13/19 Ashu, Yoel car PA-C - 04/13/2019 7:47 AM PSTFormatting of this note might be different from the o riginal. [facility] Service: Vascular Surgery Progress Note SUBJECTIVE Patient Summary: 74 y.o. man with complex medical issues and LE ischemic ulcers, he wa s recently admitted to the [facility] from 03/28/19 to 04/04/19 where he was treated/ diagnosed with systolic heart failure, type 2 VA/NSTEMI, SHAE, ARF. O2 desaturation brought him from SNF to [facility] and current admission today with CHF and +tropo olivia. He is on IV heparin for his cardiac condition. Strep. agalactiae bacteremia, likely disseminated from patient non-healing diabetic foot ul cers. Patient currently being treated with oral Augmentin for this. Patient had undergone bedside debridement with Dr. Ceballos (podiatry). Events Overnight: PPD 2. NPO since midnight. Renal function good. Plan for angio toda y. OBJECTIVE Vital Signs: Vitals: 04/13/19 0331 BP: 146/67 Pulse: 62 Resp: 20 Temp: 36.9 C (98.4 F) Physical Exam Constitutional: Well nourished, no signs of distress HENT: Non icteric sclerae, oropharynx clear. Cardiovascular: Normal rate, regular rhythm Pulmonary/Chest: No respiratory distress. Abdominal: Soft. No abdominal distension or tenderness. No abdominal pulsatile mass noted. Musculoskeletal: Normal range of motion. No evidence of arthritis. Neurological: Alert and oriented. No muscle weakness and normal gait. VASCULAR: Palpable femoral pulse bilaterally. Wounds to bilateral feet, dressings on and dr rashaad. Dopplerable DP bilaterally. Right heel ulcer. Left lateral eschar. No drainage noted. Labs: Lab Results Component Value Date WBC 11.15 (H) 04/13/2019 HGB 8.0 (L) 04/13/2019 HCT 25.5 (L) 04/13/2019 PLT 359 04/13/2019 CHOL 55 04/06/2019 TRIG 78 04/06/2019 HDL 26 (L) 04/06/2019 LDL 13 04/06/2019 ALT 18 04/09/2019 AST 18 04/09/2019 NA 137 04/13/2019 K 3.8 04/13/2019 CL 101 04/13/2019 CREA 0.7 04/13/2019 BUN 18 04/13/2019 CO2 33 (H) 04/13/2019 INR 1.2 04/06/2019 GLUF 197 (A) 08/21/2018 PROBLEM LIST Patient Active Problem List Diagnosis Date Noted POA Essential hypertension 11/25/2017 Yes Priority: High Insulin dependent diabetes mellitus 11/22/2017 Yes Priority: High Peripheral vascular disease 11/22/2017 Yes Priority: High Osteomyelitis of right foot 11/22/2017 Unknown Priority: High Class 1 obesity with serious comorbidity in adult 11/22/2017 Yes Priority: High Gross hematuria 04/08/2019 Yes Hypomagnesemia 04/07/2019 Yes NSTEMI (non-ST elevated myocardial infarction) 04/06/2019 Unknown Acute decompensated heart failure 04/06/2019 Unknown Acute respiratory failure 04/06/2019 Unknown Bacteremia 04/06/2019 Unknown History of stroke 04/06/2019 Unknown Chronic pain 04/06/2019 Unknown Other osteomyelitis of right foot 04/05/2019 Unknown Acute osteomyelitis of calcaneum, right 07/14/2018 Unknown Sepsis 11/19/2017 Unknown Hypokalemia 05/15/2016 Unknown GERD (gastroesophageal reflux disease) 05/15/2016 Yes Acute left hemiparesis 05/14/2016 Unknown Ischemic stroke diagnosed during current admission 05/14/2016 Unknown Moderate protein-calorie malnutrition 05/14/2016 Unknown Received intravenous tissue plasminogen activator (tPA) in emergency department 017 Unknown Type 2 diabetes mellitus 05/14/2016 Unknown ASSESSMENT & PLAN Peripheral arterial disease / Bilateral gangrenous wounds of feet - PPD 2 from left leg ang iogram. Continue NPO. Risks of right leg angiography include bleeding, infection, nerve genny ge, arterial occlusion, myocardial infarction, and . He understands these risks. Signed consent obtained. Will proceed to [facility] today for right leg angiogram. Moderate Sedation Presedation Assessment completed. ASA Classification: ASA 4: Patient with a severe systemic disease that is a constant threa t to life Mallampati Classification: 2: Visibility of hard and soft palate, upper portion of tonsils and uvula Code Status: Full code Bhanu Seaman PA-C Vascular Surgery Hero Sánchez MD - 04/12/2019 7:15 PM PSTFormatting of this note might be different from the o riginal. [facility] Service: Infectious Diseases Progress Note Hospital Day: LOS: 6 days Post-Op Day: 2 Days Post-Op CC: Follow up on osteomyelitis. SUBJECTIVE/OVERNIGHT EVENTS Continues on iv antibiotic therapy. Denies new concerns and denies side effects. Tolerating antibiotics well. No acute events over the last 24 hours. Intake/Output Summary (Last 24 hours) at 04/12/20191914 Last data filed at 04/12/2019 1600 Gross per 24 hour Intake 1440 ml Output 2200 ml Net -760 ml REVIEW OF SYSTEMS . GI: denies diarrhea. Skin: denies skin rash. Constitutional: denies fever and chills. Respi ratory: denies difficulty breathing. MEDICATIONS: Scheduled Meds: amLODIPine 5 mg Oral Daily aspirin 81 mg Oral Daily atorvaSTATin 10 mg Oral Nightly cadexomer iodine Topical Every Other Day carvedilol 6.25 mg Oral BID WC clopidogrel 75 mg Oral Daily DULoxetine 60 mg Oral Daily dutasteride 0.5 mg Oral Daily furosemide 40 mg Oral Daily gabapentin 300 mg Oral TID heparin 5,000 Units Subcutaneous 2 times per day insulin glargine 30 Units Subcutaneous QAM insulin lispro 0-12 Units Subcutaneous 4x Daily WC and HS lidocaine 1 patch Transdermal Daily losartan 50 mg Oral Daily magnesium oxide 400 mg Oral Daily piperacillin-tazobactam 3.375 g Intravenous Q8H 27-0.8 mg multivitamin 1 tablet Oral Daily psyllium 1 packet Oral TID tamsulosin 0.4 mg Oral Nightly [START ON 04/13/2019] vancomycin 2,000 mg Intravenous Once vancomycin per pharmacy Other Pharmacy Consult Continuous Infusions: dextrose 10% PRN Meds:.acetaminophen, albuterol, Hypoglycemia Management AND POCT Glucose AND de xtrose AND dextrose 10%, fentaNYL (PF), HYDROcodone-acetaminophen, lactulose, metoclopra mide OR metoclopramide, morphine, ondansetron OR ondansetron, oxyCODONE, prochlorper azine PHYSICAL EXAM Vital Signs: BP 130/60 | Pulse 62 | Temp 36.4 C (97.6 F) (Oral) | Resp 18 | Ht 1.778 m (5' 10") | Wt 102 kg (224 lb 13.9 oz) | SpO2 92% | BMI 32.27 kg/m Focused exam shows: General exam: No distress, cooperative with exam. HEENT: sclera non-icteric, no visible oral thrush Cardiovascular: regular rate and rhythm Lungs: no tachypnea, clear breath sounds. Mildly decreased at bases Abdomen: no distension, bowel sounds present Extremities/MSK: No edema, no joint effusions Skin: No lesions, normal turgor Neurologic: Awake, cranial nerves intact. Follows commands. Venous access: PIV. LABS: All labs were reviewed. Recent Results (from the past 24 hour(s)) POC Glucose Result Value Ref Range Glucose, POC 199 (H) 65 - 99 mg/dL CBC with Differential Result Value Ref Range WBC 10.54 3.80 - 11.00 K/uL RBC 3.74 (L) 4.20 - 5.70 M/uL Hemoglobin 8.0 (L) 13.2 - 17.0 g/dL Hematocrit 25.4 (L) 39.0 - 50.0 % MCV 67.9 (L) 80.0 - 100.0 fl MCH 21.5 (L) 27.0 - 34.0 pg MCHC 31.6 (L) 32.0 - 35.5 g/dL RDW-SD 50.8 37 - 53 fl Platelet Count 328 150 - 400 K/uL MPV 7.9 fl Diff Type AUTOMATED % Neutrophils 70.13 % % Lymphocytes 15.96 % Monocyte % 11.68 % Eosinophils % 1.53 % Basophils % 0.70 % Neutrophils, Absolute 7.40 1.90 - 7.40 K/uL Absolute Lymphocytes 1.68 1.00 - 3.90 K/uL Absolute Monocytes 1.23 (H) 0.00 - 0.80 K/uL Eosinophils, Absolute 0.16 0.00 - 0.50 K/uL Basophils, Absolute 0.07 0.00 - 0.10 K/uL RBC Morphology 1+ Basic Metabolic Panel Result Value Ref Range Na 136 135 - 145 mmol/L K 3.7 3.5 - 4.9 mmol/L Cl 100 99 - 109 mmol/L CO2 33 (H) 23 - 32 mmol/L Anion Gap 7 5 - 20 mmol/L Glucose 140 (H) 65 - 99 mg/dL BUN 21 8 - 25 mg/dL Creatinine 0.8 0.70 - 1.30 mg/dL BUN/Creatinine Ratio 26 Calcium 8.2 (L) 8.5 - 10.5 mg/dL Estimated GFR >60 >60 mL/min/1.73m2 POC Glucose Result Value Ref Range Glucose, POC 171 (H) 65 - 99 mg/dL POC Glucose Result Value Ref Range Glucose, POC 162 (H) 65 - 99 mg/dL POC Glucose Result Value Ref Range Glucose, POC 211 (H) 65 - 99 mg/dL Microbiology Results (Last 14 Days by Collected Date with Culture/Sensitivity) Procedure Component Value Units Date/Time Culture, Wound, Superficial [[id number]] (Abnormal) (Susceptibility) Collected: 04/06/19 1546 Order Status: Completed Lab Status: Final result Updated: 04/11/19 0728 Specimen: Body Fluid from Heel, Right Special Requests LT FOOT Special Requests Testing performed at [facility];[address] [place] [address];[place] [address] RESULT -- 1+ ENTEROCOCCUS FAECALIS Aminoglycosides (except for high-level resistance testing), cephalosporins, clindamycin, an d trimethoprim-sulfamethoxazole may appear active in vitro but they are not effective clinic ally. RESULT -- 1+ ENTEROBACTER CLOACAE COMPLEX RESULT -- 1+ METHICILLIN RESISTANT S. AUREUS (MRSA) Susceptibility Enterococcus faecalis (1) Antibiotic Interpretation Microscan Method Status Ampicillin Sensitive SUSCEPTIBLE JESSICA Final Penicillin G Sensitive SUSCEPTIBLE JESSICA Final Gent Synergy Resistant RESISTANT JESSICA Final Levofloxacin Sensitive SUSCEPTIBLE JESSICA Final Streptomycin synergy Sensitive SUSCEPTIBLE JESSICA Final Vancomycin Sensitive SUSCEPTIBLE JESSICA Final Enterobacter cloacae complex (2) Antibiotic Interpretation Microscan Method Status Cefazolin Resistant RESISTANT JESSICA Final Cefepime Sensitive SUSCEPTIBLE JESSICA Final Cefoxitin Resistant RESISTANT JESSICA Final Ceftazidime Sensitive SUSCEPTIBLE JESSICA Final Ceftriaxone Sensitive SUSCEPTIBLE JESSICA Final Ciprofloxacin Sensitive SUSCEPTIBLE JESSICA Final Gentamicin Sensitive SUSCEPTIBLE JESSICA Final Levofloxacin Sensitive SUSCEPTIBLE JESSICA Final Tobramycin Sensitive SUSCEPTIBLE JESSICA Final Trimethoprim + Sulfamethoxazole Sensitive SUSCEPTIBLE JESSICA Final Staphylococcus aureus,Methicillin resistant (MRSA) (3) Antibiotic Interpretation Microscan Method Status Clindamycin Resistant RESISTANT JESSICA Final Erythromycin Resistant RESISTANT JESSICA Final Gentamicin Sensitive SUSCEPTIBLE JESSICA Final Levofloxacin Resistant RESISTANT JESSICA Final Moxifloxacin Resistant RESISTANT JESSICA Final Oxacillin Resistant RESISTANT JESSICA Final Tetracycline Resistant RESISTANT JESSICA Final Trimethoprim + Sulfamethoxazole Resistant RESISTANT JESSICA Final Vancomycin Sensitive SUSCEPTIBLE JESSICA Final Testing performed at [facility], [address] [place] [id number] Culture, Wound, Superficial [[id number]] Collected: 04/06/19 1546 Order Status: Completed Lab Status: Final result Updated: 04/08/1937 Specimen: Body Fluid from Heel, Right Special Requests RIGHT FOOT Special Requests Testing performed at [facility];[address] [place] [id number] RESULT -- 1+ NORMAL SKIN CELSA ISOLATED RESULT NO FURTHER WORKUP RESULT Testing performed at [facility], [address] [place] [address] Comment: Testing performed at [facility], [address] [place] [address] Culture, Blood [[id number]] Collected: 04/06/19337 Order Status: Completed Lab Status: Final result Updated: 04/12/1952 Specimen: Peripheral Blood Special Requests R WRIST Special Requests Testing performed at [facility];[address] [place] [address] RESULT NO GROWTH 6 DAYS RESULT Testing performed at [facility], [address] [place] [address] Comment: Testing performed at [facility], [address] [place] [address] Culture, Blood [[id number]] Collected: 04/06/19 0331 Order Status: Completed Lab Status: Final result Updated: 04/12/1952 Specimen: Peripheral Blood Special Requests L WRIST Special Requests Testing performed at [facility];[address] [place] [id number] RESULT NO GROWTH 6 DAYS RESULT Testing performed at [facility], [address] [place] [address] Comment: Testing performed at [facility], [address] [place] [address] Microbiology Results (72 hrs) No results found for the last 72 hours. IMAGING: No new images for review today. ASSESSMENT & PLAN The patient is a 74 y.o.-year-old male with the following problems: Active Hospital Problems Diagnosis Date Noted Essential hypertension 11/25/2017 Priority: High Insulin dependent diabetes mellitus 11/22/2017 Priority: High Peripheral vascular disease 11/22/2017 Priority: High Class 1 obesity with serious comorbidity in adult 11/22/2017 Priority: High Gross hematuria 04/08/2019 Hypomagnesemia 04/07/2019 NSTEMI (non-ST elevated myocardial infarction) 04/06/2019 Acute decompensated heart failure 04/06/2019 Acute respiratory failure 04/06/2019 Bacteremia 04/06/2019 History of stroke 04/06/2019 Chronic pain 04/06/2019 Other osteomyelitis of right foot 04/05/2019 GERD (gastroesophageal reflux disease) 05/15/2016 Acute left hemiparesis 05/14/2016 Resolved Hospital Problems No resolved problems to display. Clinically stable from ID standpoint. Continue current antibiotic regimen. Follow vancomycin levels. Discussed with attending provider: Grover Charles MD Monitoring toxicity of iv antibiotic therapy, vancomycin, risk medication. Monitoring daily l labs, vancomycin levels. Pharmacy assisting with dosing and monitorization. Hero Richardson MD, MPH Infectious Diseases 04/12/19 Evelia Shaver MD - 04/12/2019 4:43 PM PSTFormatting of this note might be different from the [facility] mental [facility] Service: Hospitalist Progress Note Pt: Reagan Shepard AGE/SEX: 74 y.o. male ROOM: 4452/4452-01 : 1945 PCP: Jamar Manuel MD ADMIT DATE: 04/06/2019 TODAY'S DATE: 04/12/2019 Hospital Day/Hospital Course: LOS: 6 days Mr. Shepard is a 74-year-old gentleman with a history of bilateral nonhealing diabetic trisha t ulcers, and history of TBI, stroke, insulin dependent DM, who presents with CHF exacerbati on with hospital course complicated by gross hematuria. Recent history notable for admit to [facility] from 03/28/19 to 04/04/2019 for CHF exacerbation with eventual dischar ge to [facility]. He then re-presented to same hospital due to worsening SOB and again found to have CHF exacerbation though this time with elevated troponin to 0.17. Dr. Ruelas w as called and accepted the patient in transfer as a consulting physician and hospitalist ser vice called to admit the patient for further work-up and treatment. Patient also found to gee ve streptococcal agalactiae bacteremia thought to be secondary to nonhealing diabetic foot u lcer for which she was treated with 8 days of IV antibiotics then discharged home on oral Au gmentin. Patient started on Rocephin IV, wound culture grew Enterobacter and enterococcal an d then antibiotics changed to Zosyn on 09 April after talking to infectious disease. Dr. Ruelas recommend medical management and work-up for anemia which revealed profound iron def iciency for which he was started on IV iron.Podiatry and wound care also consulted for karen ateral foot ulcers. Hospital course also c/b gross hematuria requiring CBI and urology consu lt. SUBJECTIVE: Patient feels well today. States leg pain is manageable. Remains on room air. Denies chest pain, dyspnea. Miller remains in place, hopes it can come out soon. Denies pain with urinatio n. Urine remains clear/yellow. Scheduled Medications: amLODIPine 5 mg Oral Daily aspirin 81 mg Oral Daily atorvaSTATin 10 mg Oral Nightly cadexomer iodine Topical Every Other Day carvedilol 6.25 mg Oral BID WC clopidogrel 75 mg Oral Daily DULoxetine 60 mg Oral Daily dutasteride 0.5 mg Oral Daily furosemide 40 mg Oral Daily gabapentin 300 mg Oral TID insulin glargine 30 Units Subcutaneous QAM insulin lispro 0-12 Units Subcutaneous 4x Daily WC and HS lidocaine 1 patch Transdermal Daily losartan 50 mg Oral Daily magnesium oxide 400 mg Oral Daily piperacillin-tazobactam 3.375 g Intravenous Q8H 27-0.8 mg multivitamin 1 tablet Oral Daily psyllium 1 packet Oral TID tamsulosin 0.4 mg Oral Nightly [START ON 04/13/2019] vancomycin 2,000 mg Intravenous Once vancomycin per pharmacy Other Pharmacy Consult Continuous Infusions dextrose 10% PRN Medications acetaminophen, albuterol, Hypoglycemia Management AND POCT Glucose AND dextrose A ND dextrose 10%, fentaNYL (PF), HYDROcodone-acetaminophen, lactulose, metoclopramide OR* * metoclopramide, morphine, ondansetron OR ondansetron, oxyCODONE, prochlorperazine Allergy: No Known Allergies OBJECTIVE: Vitals: BP 130/60 | Pulse 62 | Temp 36.4 C (97.6 F) (Oral) | Resp 18 | Ht 1.778 m (5' 10") | Wt 102 kg (224 lb 13.9 oz) | SpO2 92% | BMI 32.27 kg/m I&O Detailed Table: Intake/Output Summary (Last 24 hours) at 04/12/2019 1643 Last data filed at 04/12/2019 1600 Gross per 24 hour Intake 1440 ml Output 2200 ml Net -760 ml Patient Vitals for the past 96 hrs: Weight 04/12/19 0418 102 kg (224 lb 13.9 oz) 04/11/19 0326 113.3 kg (249 lb 12.5 oz) 04/09/19 0256 108.4 kg (238 lb 15.7 oz) Physical Examination: GEN: elderly male in no apparent distress HEAD: normocephalic EYES: no conjunctival icterus or injection ENT: MMM NECK: supple CV: warm and well perfused RESP: no increased work of breathing on ambient air ABD: soft, NT/ND, BS+, no obvious masses/organomegaly : miller in place with CBI with miller bag draining clear/yellow urine SKIN: no rashes MSK: normal muscle bulk and tone PSYCH: mood is good, affect congruent NEURO: grossly non-focal LABS: BMP 136 100 21 140* 3.7 33* 0.8 CaMgPhos 8.2* 2.1 LFT 18 70 18 2.0* CBC 10.54 8.0* 328 25.4* Coag 34* 1.2 Last labs from current encounter as of 04/12/19-16:43 Recent Labs 04/11/19 0548 BNP 220.45* Recent Labs Lab 04/06/19 0248 INR 1.2 PTT 34* IMAGING: Reviewed in EPIC, no new results. PROBLEM LIST Principal Problem: Gross hematuria Active Problems: Insulin dependent diabetes mellitus Peripheral vascular disease Class 1 obesity with serious comorbidity in adult Essential hypertension Acute left hemiparesis GERD (gastroesophageal reflux disease) NSTEMI (non-ST elevated myocardial infarction) Acute decompensated heart failure Acute respiratory failure Bacteremia History of stroke Chronic pain Hypomagnesemia Other osteomyelitis of right foot Resolved Problems: * No resolved hospital problems. * ASSESSMENT & PLAN Acute hypoxic respiratory failure secondary to systolic CHF exacerbation Echo 11/2017 with normal EF. Serial xrays during this hospitalization with hypoventillation and possible volume overload. Now weaned from oxygen and asymptomatic. -continue lasix, ARB, BB -IS ordered -strict Is&Os, daily weights, telemetry Recent strep bacteremia Received 8 days of IV antibiotics at [facility] discharged home on with augmentin, now readmitted on 04/06 at [facility] and started on rocephin after sending 2 set of bl ood cultures which remain negative. Wound culture grew Enterobacter and Enterococcus faecali s so patient broadened to zosyn. -ID consulted -follow up blood/wound cultures PAD -vascular surgery consulted -angiogram 04/11 and next one scheduled for 04/16 -restart ASA -continue statin Bilateral foot ulcers -podiatry consulted -wound care consulted Gross hematuria Likely secondary to traumatic miller, s/p CBI, now resolved. Patient underwent cystoscopy wi th evacuation of bladder clots and placement of miller catheter with CBI by Dr. Montiel on 03/22 04/09. -urology consulted, miller in place Elevated troponin Likely secondary to demand ischemia from CHF and anemia, now asymptomatic. -cardiology consulted and recommended medical management -continue statin, ARB, BB -restart ASA Obstipation: resolved, continue lactulose HTN: normotensive, continue above meds TII DM: HgA1c of 7.8, continue lantus 30u and LDISS Iron deficiency anemia: s/p 3 days of IV iron, guaiac stool negative, follow up outpatient to ensure up to date with age appropriate cancer screening PPx: restart H Code status: Full Dispo: back to [facility] pending improvement in gross hematuria, CHF exacerbation, re peat angiogram, final ID recs, likely 4-5 more days in hospital Grover Charles MD 4:43 PM 04/12/2019 Portions of this chart may have been copied from previous notes for continuity of care purp ose Bhanu Wakefield PA-C - 04/12/2019 4:[address] [facility] Service: Vascular Surgery Progress Note SUBJECTIVE Patient Summary: 74 y.o. man with complex medical issues and LE ischemic ulcers, he wa s recently admitted to the [facility] from 03/28/19 to 04/04/19 where he was treated/ diagnosed with systolic heart failure, type 2 VA/NSTEMI, SHAE, ARF. O2 desaturation brought him from SNF to [facility] and current admission today with CHF and +tropo olivia. He is on IV heparin for his cardiac condition. Strep. agalactiae bacteremia, likely disseminated from patient non-healing diabetic foot ul cers. Patient currently being treated with oral Augmentin for this. Patient had undergone bedside debridement with Dr. Ceballos (podiatry). Events Overnight: PPD 1. First angio done yesterday. Plan for other leg tomorrow. OBJECTIVE Vital Signs: Vitals: 04/12/19 1151 BP: 150/70 Pulse: 63 Resp: 22 Temp: 36.6 C (97.8 F) Physical Exam Constitutional: Well nourished, no signs of distress HENT: Non icteric sclerae, oropharynx clear. Cardiovascular: Normal rate, regular rhythm Pulmonary/Chest: No respiratory distress. Abdominal: Soft. No abdominal distension or tenderness. No abdominal pulsatile mass noted. Musculoskeletal: Normal range of motion. No evidence of arthritis. Neurological: Alert and oriented. No muscle weakness and normal gait. VASCULAR: Palpable femoral pulse bilaterally. Wounds to bilateral feet, dressings on and dr lindsay Kirkable DP bilaterally. Right heel ulcer. Left lateral eschar. No drainage noted. Labs: Lab Results Component Value Date WBC 10.54 04/12/2019 HGB 8.0 (L) 04/12/2019 HCT 25.4 (L) 04/12/2019 PLT 328 04/12/2019 CHOL 55 04/06/2019 TRIG 78 04/06/2019 HDL 26 (L) 04/06/2019 LDL 13 04/06/2019 ALT 18 04/09/2019 AST 18 04/09/2019 NA 136 04/12/2019 K 3.7 04/12/2019 CL 100 04/12/2019 CREA 0.8 04/12/2019 BUN 21 04/12/2019 CO2 33 (H) 04/12/2019 INR 1.2 04/06/2019 GLUF 197 (A) 08/21/2018 PROBLEM LIST Patient Active Problem List Diagnosis Date Noted POA Essential hypertension 11/25/2017 Yes Priority: High Insulin dependent diabetes mellitus 11/22/2017 Yes Priority: High Peripheral vascular disease 11/22/2017 Yes Priority: High Osteomyelitis of right foot 11/22/2017 Unknown Priority: High Class 1 obesity with serious comorbidity in adult 11/22/2017 Yes Priority: High Gross hematuria 04/08/2019 Yes Hypomagnesemia 04/07/2019 Yes NSTEMI (non-ST elevated myocardial infarction) 04/06/2019 Unknown Acute decompensated heart failure 04/06/2019 Unknown Acute respiratory failure 04/06/2019 Unknown Bacteremia 04/06/2019 Unknown History of stroke 04/06/2019 Unknown Chronic pain 04/06/2019 Unknown Other osteomyelitis of right foot 04/05/2019 Unknown Acute osteomyelitis of calcaneum, right 07/14/2018 Unknown Sepsis 11/19/2017 Unknown Hypokalemia 05/15/2016 Unknown GERD (gastroesophageal reflux disease) 05/15/2016 Yes Acute left hemiparesis 05/14/2016 Unknown Ischemic stroke diagnosed during current admission 05/14/2016 Unknown Moderate protein-calorie malnutrition 05/14/2016 Unknown Received intravenous tissue plasminogen activator (tPA) in emergency department 017 Unknown Type 2 diabetes mellitus 05/14/2016 Unknown ASSESSMENT & PLAN Peripheral arterial disease / Bilateral gangrenous wounds of feet - PPD 1 from left leg ang iogram. Keep NPO after midnight for right leg angiogram tomorrow. Continue ASA and statin. S igned consent obtained. Code Status: Full code Bhanu Seaman PA-C Vascular Surgery unshine Love, [facility] - 04/12/2019 12:27 PM PST Vancomycin Dosing Per Pharmacy Subjective/Objective Reagan Shepard is a 74 y.o. 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 Additional antimicrobials: zosyn Quadriplegic/Paraplegic: no Diabetes: yes Baseline Serum Creatinine: 0.6 mg/dL Actual weight: 113.3 kg Adjusted body weight: 89.1 kg Agency body weight: 73 kg Current Vital Signs: BP 147/70 | Pulse 63 | Temp 36.6 C (97.9 F) (Oral) | Resp 20 | Ht 1.778 m (5' 10") | Wt 102 kg (224 lb 13.9 oz) | SpO2 95% | BMI 32.27 kg/m Recent Labs Lab 04/12/19 0620 04/11/19 0548 04/10/19 0525 04/09/19 0616 WBC 10.54 12.50* 16.34* 16.61* CREA 0.8 0.9 -- 0.8 Estimated Creatinine Clearance: 100 mL/min (based on SCr of 0.8 mg/dL). Vancomycin Dosing History Date Dosing Regimen Admin Times Trough SCr Comments Day 1 04/11 2250 mg IV loading dose 1250 mg IV Q12H Planned 1130; Not Given 2348 0.9 Please note, vancomycin load of 2250 mg was ordered but never given. Per MAY, mitted because patient unavailable. Day 2 04/12 1250 mg Q12H 1430 0.8 Dose planned for 1230 hung late due to issues with line ac cess. Loading dose ordered yesterday missed, will give one time increased dose ~12 hours fro m dose this afternoon to target trough of 15-20 mcg/mL Day 3 04/13 2000 mg IV ONCE 0230 Planned @1330 Day 4 Day 5 *SCr = mg/dL [vanco] = mcg/mL Assessment/Plan Vancomycin Load: 2250 mg (25 mg/kg) IV x 1. Was ordered but never given. Patient received 1250 mg Q12H x 2 doses, last dose today at 1430. For the next dose, I will order a one time dose of vancomycin 2000 mg IV to compensate for missed loading dose, then plan to check a level in 12 hours, prior to the 4th total dose of vancomycin. If level is wi thin range, will continue with maintenance dose of 1250 mg Q12H. Target trough: 15-20 mcg/ml Concurrent potentially nephrotoxic medications: none at this time Culture monitoring: Will monitor culture(s) for growth, identification, and sensitivities. Plan for level: 04/13 @1330, prior to 4th total vanco dose. Pharmacy will continue to follow and make adjustments to vancomycin therapy as indicated. Thank You, Sunshine Love, [employer], [facility] 04/12/19 3:27 PM Grover Shaver MD - 04/11/2019 5:[address] [facility] Service: Hospitalist Progress Note Pt: Reagan Shepard AGE/SEX: 74 y.o. male ROOM: [id number] : 1945 PCP: Jamar Manuel MD ADMIT DATE: 04/06/2019 TODAY'S DATE: 04/11/2019 Hospital Day/Hospital Course: LOS: 5 days Mr. Shepard is a 74-year-old gentleman with a history of bilateral nonhealing diabetic trisha t ulcers, and history of TBI, stroke, insulin dependent DM, who presents with CHF exacerbati on with hospital course complicated by gross hematuria. Recent history notable for admit to [facility] from 03/28/19 to 04/04/2019 for CHF exacerbation with eventual dischar ge to [facility]. He then re-presented to same hospital due to worsening SOB and again found to have CHF exacerbation though this time with elevated troponin to 0.17. Dr. Ruelas w as called and accepted the patient in transfer as a consulting physician and hospitalist ser vice called to admit the patient for further work-up and treatment. Patient also found to gee ve streptococcal agalactiae bacteremia thought to be secondary to nonhealing diabetic foot u lcer for which she was treated with 8 days of IV antibiotics then discharged home on oral Au gmentin. Patient started on Rocephin IV, wound culture grew Enterobacter and enterococcal an d then antibiotics changed to Zosyn on 09 April after talking to infectious disease. Dr. Ruelas recommend medical management and work-up for anemia which revealed profound iron def iciency for which he was started on IV iron.Podiatry and wound care also consulted for karen ateral foot ulcers. Hospital course also c/b gross hematuria requiring CBI and urology consu lt. SUBJECTIVE: Patient feels better this morning. He is about to go off for angiogram today. He has been w eaned from oxygen, currently on room air and denies any fevers, chills, chest pain, dyspnea. Miller remains in place and he denies any hematuria or pain with urination. Scheduled Medications: amLODIPine 5 mg Oral Daily atorvaSTATin 10 mg Oral Nightly cadexomer iodine Topical Every Other Day carvedilol 6.25 mg Oral BID WC [START ON 04/12/2019] clopidogrel 75 mg Oral Daily DULoxetine 60 mg Oral Daily dutasteride 0.5 mg Oral Daily furosemide 40 mg Oral Daily gabapentin 300 mg Oral TID insulin glargine 30 Units Subcutaneous QAM insulin lispro 0-12 Units Subcutaneous 4x Daily WC and HS insulin lispro 0-18 Units Subcutaneous TID WC lidocaine 1 patch Transdermal Daily losartan 50 mg Oral Daily magnesium oxide 400 mg Oral Daily piperacillin-tazobactam 3.375 g Intravenous Q8H 27-0.8 mg multivitamin 1 tablet Oral Daily psyllium 1 packet Oral TID tamsulosin 0.4 mg Oral Nightly vancomycin 25 mg/kg (Adjusted) Intravenous Once [START ON 04/12/2019] vancomycin 15 mg/kg (Adjusted) Intravenous Q12H vancomycin per pharmacy Other Pharmacy Consult Continuous Infusions dextrose 10% PRN Medications acetaminophen, albuterol, Hypoglycemia Management AND POCT Glucose AND dextrose A ND dextrose 10%, fentaNYL (PF), HYDROcodone-acetaminophen, lactulose, metoclopramide OR* * metoclopramide, morphine, ondansetron OR ondansetron, oxyCODONE, prochlorperazine Allergy: No Known Allergies OBJECTIVE: Vitals: BP 103/56 | Pulse 72 | Temp 36.9 C (98.4 F) (Oral) | Resp 22 | Ht 1.778 m (5' 10") | Wt 113.3 kg (249 lb 12.5 oz) | SpO2 92% | BMI 35.84 kg/m I&O Detailed Table: Intake/Output Summary (Last 24 hours) at 04/11/2019 1706 Last data filed at 04/11/2019 0503 Gross per 24 hour Intake 300 ml Output 425 ml Net -125 ml Patient Vitals for the past 96 hrs: Weight 04/11/19 0326 113.3 kg (249 lb 12.5 oz) 04/09/19 0256 108.4 kg (238 lb 15.7 oz) Physical Examination: GEN: elderly male in no apparent distress HEAD: normocephalic EYES: no conjunctival icterus or injection ENT: MMM NECK: supple CV: warm and well perfused RESP: no increased work of breathing on ambient air ABD: soft, NT/ND, BS+, no obvious masses/organomegaly : miller in place with CBI with miller bag draining clear/yellow urine SKIN: no rashes MSK: normal muscle bulk and tone PSYCH: mood is good, affect congruent NEURO: grossly non-focal LABS: BMP 133* 97* 26* 158* 3.8 32 0.9 CaMgPhos 8.1* 2.1 LFT 18 70 18 2.0* CBC 12.50* 8.8* 331 29.2* Coag 34* 1.2 Last labs from current encounter as of 04/11/19-17:06 Recent Labs 04/11/19 0548 BNP 220.45* Recent Labs Lab 04/06/19 0248 INR 1.2 PTT 34* IMAGING: Reviewed in EPIC, no new results. PROBLEM LIST Principal Problem: Gross hematuria Active Problems: Insulin dependent diabetes mellitus Peripheral vascular disease Class 1 obesity with serious comorbidity in adult Essential hypertension Acute left hemiparesis GERD (gastroesophageal reflux disease) NSTEMI (non-ST elevated myocardial infarction) Acute decompensated heart failure Acute respiratory failure Bacteremia History of stroke Chronic pain Hypomagnesemia Other osteomyelitis of right foot Resolved Problems: * No resolved hospital problems. * ASSESSMENT & PLAN Gross hematuria Likely secondary to traumatic miller, much improved with CBI. Patient s/p cystoscopy with ev acuation of bladder clots and placement of miller catheter with CBI by Dr. Montiel on 04/10/19. -urology consulted -hold ASA and SQH for now Acute hypoxic respiratory failure secondary to systolic CHF exacerbation Echo 11/2017 with normal EF. Serial xrays during this hospitalization with hypoventillation and possible volume overload. Now weaned from oxygen. -continue lasix, ARB, BB -IS ordered -strict Is&Os, daily weights, telemetry Recent strep bacteremia Received 8 days of IV antibiotics at [facility] discharged home on with augmentin, now readmitted on 04/06 at [facility] and started on rocephin after sending 2 set of bl ood cultures which remain negative. Wound culture grew Enterobacter and Enterococcus faecali s so patient broadened to zosyn. -ID consulted -follow up blood/wound cultures PAD -vascular surgery consulted -angiogram today and next one scheduled for 04/16 -hold ASA -continue statin Bilateral foot ulcers -podiatry consulted -wound care consulted Elevated troponin Likely secondary to demand ischemia from CHF and anemia, now asymptomatic. -cardiology consulted and recommended medical management -continue statin, ARB, BB -holding aspirin Obstipation: resolved, continue lactulos HTN: normotensive, continue above meds TII DM: HgA1c of 7.8, continue lantus 30u and LDISS Iron deficiency anemia: s/p 3 days of IV iron, guaiac stool negative, follow up outpatient to ensure up to date with age appropriate cancer screening PPx: SQH (currently holding due to gross hematuria as above) Code status: Full Dispo: back to [facility] pending improvement in gross hematuria and CHF exacerbation Grover Charles MD 5:06 PM 04/11/2019 Portions of this chart may have been copied from previous notes for continuity of care purp ose roctor, Sheila Brown [facility] - 04/11/2019 2:03 PM PST Vancomycin Dosing Per Pharmacy Subjective/Objective Reagan Shepard is a 74 y.o. 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 Additional antimicrobials: zosyn Quadriplegic/Paraplegic: no Diabetes: yes Baseline Serum Creatinine: 0.6 mg/dL Actual weight: 113.3 kg Adjusted body weight: 89.1 kg Agency body weight: 73 kg Current Vital Signs: BP 130/62 | Pulse 73 | Temp 37 C (98.6 F) (Oral) | Resp 22 | H t 1.778 m (5' 10") | Wt 113.3 kg (249 lb 12.5 oz) | SpO2 95% | BMI 35.84 kg/m Recent Labs Lab 04/11/19 0548 04/10/19 0525 04/09/19 0616 04/08/19 0545 WBC 12.50* 16.34* 16.61* 10.47 CREA 0.9 -- 0.8 0.8 Estimated Creatinine Clearance: 94 mL/min (based on SCr of 0.9 mg/dL). Vancomycin Dosing History Date Dosing Regimen Admin Times Trough SCr Comments Day 1 04/11 Vancomycin 2250 mg IV x1 LD then 1250 mg IV q12h Due 1100 0.9 Day 2 Day 3 (check cx on day 3) Level @ 1130 (Discontinue if cultures negative) Day 4 Day 5 *SCr = mg/dL [vanco] = mcg/mL Assessment/Plan Vancomycin Load: 2250 mg (25 mg/kg) IV x 1. Was sufficient Maintenance Dose: 1250 mg IV q12h (14 mg/kg/dose) Rationale: Based on [facility] dosing nomogram, current renal function, and desired trough. Bas ed on patient history, vancomycin 1250 mg IV q12h in 2018 (without sufficient load) with tro ugh of 13.6 mcg/mL with similar renal function. Will start with this dose conservatively per protocol with sufficient load. Target trough: 15-20 mcg/ml Concurrent potentially nephrotoxic medications: zosyn is known to increase risk of SHAE in c ombination with vancomycin. Culture monitoring: Will monitor culture(s) for growth, identification, and sensitivities. Plan for level: Before 5th dose. On 04/13@ 1130 (will avoid PM sleep interruption) Pharmacy will continue to follow and make adjustments to vancomycin therapy as indicated. Thank You, Sheila Ahuja RPH, 04/11/2019, 1:51 PM Hero Sánchez MD - 04/11/2019 10:09 AM PSTFormatting of this note might be different from stephanie brown original. [facility] Service: Infectious Diseases Progress Note Hospital Day: LOS: 5 days Post-Op Day: 1 Day Post-Op CC: Follow up on osteomyelitis. SUBJECTIVE/OVERNIGHT EVENTS Continues on iv antibiotic therapy. Denies new concerns and denies side effects. Tolerating antibiotics well. No acute events over the last 24 hours. MRSA found on wound cultures. Intake/Output Summary (Last 24 hours) at 04/11/2019 1010 Last data filed at 04/11/2019 0503 Gross per 24 hour Intake 775 ml Output 1525 ml Net -750 ml REVIEW OF SYSTEMS . GI: denies diarrhea. Skin: denies skin rash. Constitutional: denies fever and chills. Respi ratory: denies difficulty breathing. MEDICATIONS: Scheduled Meds: amLODIPine 5 mg Oral Daily atorvaSTATin 10 mg Oral Nightly cadexomer iodine Topical Every Other Day carvedilol 6.25 mg Oral BID WC DULoxetine 60 mg Oral Daily dutasteride 0.5 mg Oral Daily furosemide 40 mg Oral Daily gabapentin 300 mg Oral TID insulin glargine 30 Units Subcutaneous QAM insulin lispro 0-12 Units Subcutaneous 4x Daily WC and HS lidocaine 1 patch Transdermal Daily losartan 50 mg Oral Daily magnesium oxide 400 mg Oral Daily piperacillin-tazobactam 3.375 g Intravenous Q8H 27-0.8 mg multivitamin 1 tablet Oral Daily psyllium 1 packet Oral TID tamsulosin 0.4 mg Oral Nightly vancomycin per pharmacy Other Pharmacy Consult Continuous Infusions: dextrose 10% PRN Meds:.acetaminophen, albuterol, Hypoglycemia Management AND POCT Glucose AND de xtrose AND dextrose 10%, lactulose, morphine, ondansetron, oxyCODONE PHYSICAL EXAM Vital Signs: BP 145/62 | Pulse 71 | Temp 36.8 C (98.3 F) (Oral) | Resp 22 | Ht 1.778 m (5' 10") | Wt 113.3 kg (249 lb 12.5 oz) | SpO2 93% | BMI 35.84 kg/m Focused exam shows: General exam: No distress, cooperative with exam. HEENT: sclera non-icteric, no visible oral thrush Cardiovascular: regular rate and rhythm Lungs: no tachypnea, clear breath sounds. Mildly decreased at bases Abdomen: no distension, bowel sounds present Extremities/MSK: No edema, no joint effusions Skin: No lesions, normal turgor Neurologic: Awake, cranial nerves intact. Follows commands. Venous access: PIV. LABS: All labs were reviewed. Recent Results (from the past 24 hour(s)) POC Glucose Result Value Ref Range Glucose, POC 176 (H) 65 - 99 mg/dL POC Glucose Result Value Ref Range Glucose, POC 127 (H) 65 - 99 mg/dL CBC with Differential Result Value Ref Range WBC 12.50 (H) 3.80 - 11.00 K/uL RBC 4.24 4.20 - 5.70 M/uL Hemoglobin 8.8 (L) 13.2 - 17.0 g/dL Hematocrit 29.2 (L) 39.0 - 50.0 % MCV 69.0 (L) 80.0 - 100.0 fl MCH 20.8 (L) 27.0 - 34.0 pg MCHC 30.2 (L) 32.0 - 35.5 g/dL RDW-SD 49.9 37 - 53 fl Platelet Count 331 150 - 400 K/uL MPV 7.8 fl Diff Type AUTOMATED % Neutrophils 79.29 % % Lymphocytes 9.29 % Monocyte % 9.89 % Eosinophils % 1.05 % Basophils % 0.48 % Neutrophils, Absolute 9.91 (H) 1.90 - 7.40 K/uL Absolute Lymphocytes 1.16 1.00 - 3.90 K/uL Absolute Monocytes 1.24 (H) 0.00 - 0.80 K/uL Eosinophils, Absolute 0.13 0.00 - 0.50 K/uL Basophils, Absolute 0.06 0.00 - 0.10 K/uL RBC Morphology 2+ Basic Metabolic Panel Result Value Ref Range Na 133 (L) 135 - 145 mmol/L K 3.8 3.5 - 4.9 mmol/L Cl 97 (L) 99 - 109 mmol/L CO2 32 23 - 32 mmol/L Anion Gap 8 5 - 20 mmol/L Glucose 158 (H) 65 - 99 mg/dL BUN 26 (H) 8 - 25 mg/dL Creatinine 0.9 0.70 - 1.30 mg/dL BUN/Creatinine Ratio 29 Calcium 8.1 (L) 8.5 - 10.5 mg/dL Estimated GFR >60 >60 mL/min/1.73m2 B Type Natriuretic Peptide Result Value Ref Range BNP 220.45 (H) 0 - 100 pg/mL POC Glucose Result Value Ref Range Glucose, POC 217 (H) 65 - 99 mg/dL Microbiology Results (Last 14 Days by Collected Date with Culture/Sensitivity) Procedure Component Value Units Date/Time Culture, Wound, Superficial [[id number]] (Abnormal) (Susceptibility) Collected: 04/06/191545 Order Status: Completed Lab Status: Final result Updated: 04/11/19 0728 Specimen: Body Fluid from Heel, Right Special Requests LT FOOT Special Requests Testing performed at [facility];[address] [place] [address] RESULT -- 1+ ENTEROCOCCUS FAECALIS Aminoglycosides (except for high-level resistance testing), cephalosporins, clindamycin, an d trimethoprim-sulfamethoxazole may appear active in vitro but they are not effective clinic ally. RESULT -- 1+ ENTEROBACTER CLOACAE COMPLEX RESULT -- 1+ METHICILLIN RESISTANT S. AUREUS (MRSA) Susceptibility Enterococcus faecalis (1) Antibiotic Interpretation Microscan Method Status Ampicillin Sensitive SUSCEPTIBLE JESSICA Final Penicillin G Sensitive SUSCEPTIBLE JESSICA Final Gent Synergy Resistant RESISTANT JESSICA Final Levofloxacin Sensitive SUSCEPTIBLE JESSICA Final Streptomycin synergy Sensitive SUSCEPTIBLE JESSICA Final Vancomycin Sensitive SUSCEPTIBLE JESSICA Final Enterobacter cloacae complex (2) Antibiotic Interpretation Microscan Method Status Cefazolin Resistant RESISTANT JESSICA Final Cefepime Sensitive SUSCEPTIBLE JESSICA Final Cefoxitin Resistant RESISTANT JESSICA Final Ceftazidime Sensitive SUSCEPTIBLE JESSICA Final Ceftriaxone Sensitive SUSCEPTIBLE JESSICA Final Ciprofloxacin Sensitive SUSCEPTIBLE JESSICA Final Gentamicin Sensitive SUSCEPTIBLE JESSICA Final Levofloxacin Sensitive SUSCEPTIBLE JESSICA Final Tobramycin Sensitive SUSCEPTIBLE JESSICA Final Trimethoprim + Sulfamethoxazole Sensitive SUSCEPTIBLE JESSICA Final Staphylococcus aureus,Methicillin resistant (MRSA) (3) Antibiotic Interpretation Microscan Method Status Clindamycin Resistant RESISTANT JESSICA Final Erythromycin Resistant RESISTANT JESSICA Final Gentamicin Sensitive SUSCEPTIBLE JESSICA Final Levofloxacin Resistant RESISTANT JESSICA Final Moxifloxacin Resistant RESISTANT JESSICA Final Oxacillin Resistant RESISTANT JESSICA Final Tetracycline Resistant RESISTANT JESSICA Final Trimethoprim + Sulfamethoxazole Resistant RESISTANT JESSICA Final Vancomycin Sensitive SUSCEPTIBLE JESSICA Final Testing performed at [facility], [address] [place] [address] Culture, Wound, Superficial [[id number]] Collected: 04/06/191545 Order Status: Completed Lab Status: Final result Updated: 04/08/19 0937 Specimen: Body Fluid from Heel, Right Special Requests RIGHT FOOT Special Requests Testing performed at [facility];[address] [place] [address] RESULT -- 1+ NORMAL SKIN CELSA ISOLATED RESULT NO FURTHER WORKUP RESULT Testing performed at [facility], [address] [place] [address] Comment: Testing performed at [facility], [address] [place] [address] Culture, Blood [[id number]] Collected: 04/06/19337 Order Status: Completed Lab Status: Preliminary result Updated: 04/07/19812 Specimen: Peripheral Blood Special Requests R WRIST Special Requests Testing performed at [facility];[address] [place] [address] RESULT NO GROWTH AT THIS TIME RESULT Testing performed at [facility], [address] [place] [address] Comment: Testing performed at [facility], [address] [place] [address] Culture, Blood [[id number]] Collected: 04/06/19330 Order Status: Completed Lab Status: Preliminary result Updated: 04/07/19812 Specimen: Peripheral Blood Special Requests L WRIST Special Requests Testing performed at [facility];[address] [place] [address] RESULT NO GROWTH AT THIS TIME RESULT Testing performed at [facility], [address] [place] [id number] Comment: Testing performed at [facility], [address] [place] [address] Microbiology Results (72 hrs) No results found for the last 72 hours. IMAGING: No new images for review today. ASSESSMENT & PLAN The patient is a 74 y.o.-year-old male with the following problems: Active Hospital Problems Diagnosis Date Noted Essential hypertension 11/25/2017 Priority: High Insulin dependent diabetes mellitus 11/22/2017 Priority: High Peripheral vascular disease 11/22/2017 Priority: High Class 1 obesity with serious comorbidity in adult 11/22/2017 Priority: High Gross hematuria 04/08/2019 Hypomagnesemia 04/07/2019 NSTEMI (non-ST elevated myocardial infarction) 04/06/2019 Acute decompensated heart failure 04/06/2019 Acute respiratory failure 04/06/2019 Bacteremia 04/06/2019 History of stroke 04/06/2019 Chronic pain 04/06/2019 Other osteomyelitis of right foot 04/05/2019 GERD (gastroesophageal reflux disease) 05/15/2016 Acute left hemiparesis 05/14/2016 Resolved Hospital Problems No resolved problems to display. New problem: MRSA infection. Start vancomycin. Pharmacy to dose. Clinically stable from ID standpoint. Continue current antibiotic regimen. Follow vancomycin levels. Patient updated on his/her condition today. Awaiting amputation RLE. Pending vascular results for LLE prognosis. Discussed with attending provider: Grover Charles MD Monitoring toxicity of iv antibiotic therapy, vancomycin, risk medication. Monitoring daily l labs, vancomycin levels. Pharmacy assisting with dosing and monitorization. Hero Richardson MD, MPH Infectious Diseases 04/11/19 elon Chase RN - 04/11/2019 12:15 AM PSTReport given to yunier ZARATE who is to assume care at t his time. Pelon Chase RN Grover Shaver MD - 04/10/2019 4:[address] [facility] Service: Hospitalist Progress Note Pt: Reagan Shepard AGE/SEX: 74 y.o. male ROOM: [id number] : 1945 PCP: Jamar Maunel MD ADMIT DATE: 04/06/2019 TODAY'S DATE: 04/10/2019 Hospital Day/Hospital Course: LOS: 4 days Mr. Shepard is a 74-year-old gentleman with a history of bilateral nonhealing diabetic trisha t ulcers, and history of TBI, stroke, insulin dependent DM, who presents with CHF exacerbati on with hospital course complicated by gross hematuria. Recent history notable for admit to [facility] from 03/28/19 to 04/04/2019 for CHF exacerbation with eventual dischar ge to [facility]. He then re-presented to same hospital due to worsening SOB and again found to have CHF exacerbation though this time with elevated troponin to 0.17. Dr. Jessenia lawson called and accepted the patient in transfer as a consulting physician and hospitalist ser vice called to admit the patient for further work-up and treatment. Patient also found to gee ve streptococcal agalactiae bacteremia thought to be secondary to nonhealing diabetic foot u lcer for which she was treated with 8 days of IV antibiotics then discharged home on oral Au gmentin. Patient started on Rocephin IV, wound culture grew Enterobacter and enterococcal an d then antibiotics changed to Zosyn on 09 April after talking to infectious disease. Dr. Ruelas recommend medical management and work-up for anemia which revealed profound iron def iciency for which he was started on IV iron.Podiatry and wound care also consulted for karen ateral foot ulcers. Hospital course also c/b gross hematuria requiring CBI and urology consu lt. SUBJECTIVE: Patient feels tired this morning. Denies chest pain, dyspnea, Remains on 2L O2 NC. Spoke wi th bedside RN who said he was awake and alert earlier today and actually a bit grumpy so I d ecided to let him rest prior to his surgical intervention with urology today. Scheduled Medications: amLODIPine 5 mg Oral Daily atorvaSTATin 10 mg Oral Nightly cadexomer iodine Topical Every Other Day carvedilol 6.25 mg Oral BID WC DULoxetine 60 mg Oral Daily dutasteride 0.5 mg Oral Daily ferric gluconate 250 mg Intravenous Daily furosemide 40 mg Oral Daily gabapentin 300 mg Oral TID insulin glargine 30 Units Subcutaneous QAM insulin lispro 0-12 Units Subcutaneous 4x Daily WC and HS lidocaine 1 patch Transdermal Daily losartan 50 mg Oral Daily magnesium oxide 400 mg Oral Daily piperacillin-tazobactam 3.375 g Intravenous Q8H 27-0.8 mg multivitamin 1 tablet Oral Daily psyllium 1 packet Oral TID tamsulosin 0.4 mg Oral Nightly Continuous Infusions dextrose 10% PRN Medications acetaminophen, Hypoglycemia Management AND POCT Glucose AND dextrose AND dextro se 10%, lactulose, morphine, ondansetron, oxyCODONE Allergy: No Known Allergies OBJECTIVE: Vitals: BP 117/58 | Pulse (!) 6 | Temp 36.7 C (98 F) (Oral) | Resp 23 | Ht 1.778 m (5' 10") | Wt 108.4 kg (238 lb 15.7 oz) | SpO2 94% | BMI 34.29 kg/m I&O Detailed Table: Intake/Output Summary (Last 24 hours) at 04/10/2019 1651 Last data filed at 04/10/2019 1600 Gross per 24 hour Intake 725 ml Output 4525 ml Net -3800 ml Patient Vitals for the past 96 hrs: Weight 04/09/19 0256 108.4 kg (238 lb 15.7 oz) Physical Examination: GEN: elderly male in no apparent distress HEAD: normocephalic EYES: no conjunctival icterus or injection ENT: MMM, O2 NC in place NECK: supple CV: warm and well perfused RESP: no increased work of breathing on ambient air ABD: soft, NT/ND, BS+, no obvious masses/organomegaly : miller in place with CBI with miller bag draining clear/yellow urine SKIN: no rashes MSK: normal muscle bulk and tone PSYCH: mood is good, affect congruent NEURO: grossly non-focal LABS: BMP 134* 96* 18 163* 4.1 34* 0.8 CaMgPhos 8.3* 2.1 LFT 18 70 18 2.0* CBC 16.34* 8.6* 354 27.6* Coag 34* 1.2 Last labs from current encounter as of 04/10/19-16:51 Recent Labs 04/08/19 0545 BNP 580.26* Recent Labs Lab 04/06/19 0248 INR 1.2 PTT 34* IMAGING: Reviewed in EPIC, no new results. PROBLEM LIST Principal Problem: Gross hematuria Active Problems: Insulin dependent diabetes mellitus Peripheral vascular disease Class 1 obesity with serious comorbidity in adult Essential hypertension Acute left hemiparesis GERD (gastroesophageal reflux disease) NSTEMI (non-ST elevated myocardial infarction) Acute decompensated heart failure Acute respiratory failure Bacteremia History of stroke Chronic pain Hypomagnesemia Other osteomyelitis of right foot Resolved Problems: * No resolved hospital problems. * ASSESSMENT & PLAN Gross hematuria Likely secondary to traumatic miller, much improved with CBI. -urology consulted, continue CBI, patient NPO for cystoscopy today -hold ASA and SQH for now Acute hypoxic respiratory failure secondary to systolic CHF exacerbation Echo 11/2017 with normal EF. Serial xrays during this hospitalization with hypoventillation and possible volume overload. -continue lasix, ARB, BB -IS ordered -strict Is&Os, daily weights, telemetry Recent strep bacteremia Received 8 days of IV antibiotics at [facility] discharged home on with augmentin, now readmitted on 04/06 at [facility] and started on rocephin after sending 2 set of bl ood cultures which remain negative. Wound culture grew Enterobacter and Enterococcus faecali s so patient broadened to zosyn. -ID consulted -follow up blood/wound cultures PAD -vascular surgery consulted -angiograms scheduled for 04/12 and 04/16 for bilateral LE's -continue ASA, statin Bilateral foot ulcers -podiatry consulted -wound care consulted Elevated troponin Likely secondary to demand ischemia from CHF and anemia, now asymptomatic. -cardiology consulted and recommended medical management -continue ASA, statin, ARB, BB Obstipation: resolved, continue lactulos HTN: normotensive, continue above meds TII DM: HgA1c of 7.8, continue lantus 30u and LDISS Iron deficiency anemia: s/p 3 days of IV iron, guaiac stool negative, follow up outpatient to ensure up to date with age appropriate cancer screening PPx: SQH (currently holding due to gross hematuria as above) Code status: Full Dispo: back to [facility] pending improvement in gross hematuria and CHF exacerbation Grover Charles MD 4:51 PM 04/10/2019 Portions of this chart may have been copied from previous notes for continuity of care purp ose Hero Sánchez MD - 04/10/2019 2:27 PM PSTFormatting of this note might be different from the [facility] Progress Note Hospital Day: LOS: 4 days Post-Op Day: * No surgery date entered * CC: Follow up on osteomyelitis. SUBJECTIVE/OVERNIGHT EVENTS Continues on iv antibiotic therapy. Denies new concerns and denies side effects. Tolerating antibiotics well. Intake/Output Summary (Last 24 hours) at 04/10/2019 1427 Last data filed at 04/10/2019 0700 Gross per 24 hour Intake Output 4425 ml Net -4425 ml REVIEW OF SYSTEMS . GI: denies diarrhea. Skin: denies skin rash. Constitutional: denies fever and chills. MEDICATIONS: Scheduled Meds: amLODIPine 5 mg Oral Daily atorvaSTATin 10 mg Oral Nightly cadexomer iodine Topical Every Other Day carvedilol 6.25 mg Oral BID WC DULoxetine 60 mg Oral Daily dutasteride 0.5 mg Oral Daily ferric gluconate 250 mg Intravenous Daily furosemide 40 mg Oral Daily gabapentin 300 mg Oral TID insulin glargine 30 Units Subcutaneous QAM insulin lispro 0-12 Units Subcutaneous 4x Daily WC and HS lidocaine 1 patch Transdermal Daily losartan 50 mg Oral Daily magnesium oxide 400 mg Oral Daily piperacillin-tazobactam 3.375 g Intravenous Q8H 27-0.8 mg multivitamin 1 tablet Oral Daily psyllium 1 packet Oral TID tamsulosin 0.4 mg Oral Nightly Continuous Infusions: dextrose 10% PRN Meds:.acetaminophen, Hypoglycemia Management AND POCT Glucose AND dextrose AN D dextrose 10%, lactulose, morphine, ondansetron, oxyCODONE PHYSICAL EXAM Vital Signs: BP 95/51 | Pulse 70 | Temp 36.7 C (98 F) (Oral) | Resp 22 | Ht 1.778 m (5' 10") | Wt 108.4 kg (238 lb 15.7 oz) | SpO2 92% | BMI 34.29 kg/m Focused exam shows: General exam: No distress, cooperative with exam. HEENT: sclera non-icteric, no visible oral thrush Cardiovascular: regular rate and rhythm Lungs: no tachypnea, clear breath sounds. Mildly decreased at bases Abdomen: no distension, bowel sounds present Extremities/MSK: No edema, no joint effusions Skin: No lesions, normal turgor Neurologic: Awake, cranial nerves intact. Follows commands. Venous access: PIV. LABS: All labs were reviewed. Recent Results (from the past 24 hour(s)) POC Glucose Result Value Ref Range Glucose, POC 169 (H) 65 - 99 mg/dL POC Glucose Result Value Ref Range Glucose, POC 151 (H) 65 - 99 mg/dL CBC no Differential Result Value Ref Range WBC 16.34 (H) 3.80 - 11.00 K/uL RBC 4.10 (L) 4.20 - 5.70 M/uL Hemoglobin 8.6 (L) 13.2 - 17.0 g/dL Hematocrit 27.6 (L) 39.0 - 50.0 % MCV 67.1 (L) 80.0 - 100.0 fl MCH 21.0 (L) 27.0 - 34.0 pg MCHC 31.3 (L) 32.0 - 35.5 g/dL RDW-SD 49.0 37 - 53 fl Platelet Count 354 150 - 400 K/uL MPV 8.3 fl POC Glucose Result Value Ref Range Glucose, POC 131 (H) 65 - 99 mg/dL Microbiology Results (Last 14 Days by Collected Date with Culture/Sensitivity) Procedure Component Value Units Date/Time Culture, Wound, Superficial [[id number]] (Abnormal) (Susceptibility) Collected: 04/06/19 1546 Order Status: Completed Lab Status: Preliminary result Updated: 04/10/19 0930 Specimen: Body Fluid from Heel, Right Special Requests LT FOOT Special Requests Testing performed at [facility];[address] [place] [id number] RESULT -- 1+ ENTEROCOCCUS FAECALIS Aminoglycosides (except for high-level resistance testing), cephalosporins, clindamycin, an d trimethoprim-sulfamethoxazole may appear active in vitro but they are not effective clinic ally. RESULT -- 1+ ENTEROBACTER CLOACAE COMPLEX RESULT -- 1+ STAPHYLOCOCCUS AUREUS RESULT SUSCEPTIBILITY TO FOLLOW RESULT Testing performed at [facility], [address] [place] [id number] Susceptibility Enterococcus faecalis (1) Antibiotic Interpretation Microscan Method Status Ampicillin Sensitive SUSCEPTIBLE JESSICA Preliminary Penicillin G Sensitive SUSCEPTIBLE JESSICA Preliminary Gent Synergy Resistant RESISTANT JESSICA Preliminary Levofloxacin Sensitive SUSCEPTIBLE JESSICA Preliminary Streptomycin synergy Sensitive SUSCEPTIBLE JESSICA Preliminary Vancomycin Sensitive SUSCEPTIBLE JESSICA Preliminary Enterobacter cloacae complex (2) Antibiotic Interpretation Microscan Method Status Cefazolin Resistant RESISTANT JESSICA Preliminary Cefepime Sensitive SUSCEPTIBLE JESSICA Preliminary Cefoxitin Resistant RESISTANT JESSICA Preliminary Ceftazidime Sensitive SUSCEPTIBLE JESSICA Preliminary Ceftriaxone Sensitive SUSCEPTIBLE JESSICA Preliminary Ciprofloxacin Sensitive SUSCEPTIBLE JESSICA Preliminary Gentamicin Sensitive SUSCEPTIBLE JESSICA Preliminary Levofloxacin Sensitive SUSCEPTIBLE JESSICA Preliminary Tobramycin Sensitive SUSCEPTIBLE JESSICA Preliminary Trimethoprim + Sulfamethoxazole Sensitive SUSCEPTIBLE JESSICA Preliminary Testing performed at [facility], [address] [place] [id number] Culture, Wound, Superficial [[id number]] Collected: 04/06/191545 Order Status: Completed Lab Status: Final result Updated: 04/08/19 0937 Specimen: Body Fluid from Heel, Right Special Requests RIGHT FOOT Special Requests Testing performed at [facility];[address] [place] [address] 280[address] RESULT -- 1+ NORMAL SKIN CELSA ISOLATED RESULT NO FURTHER WORKUP RESULT Testing performed at [facility], [address] [place] [phone] Comment: Testing performed at [facility], [address] [place] [id number] Culture, Blood [[id number]] Collected: 01/337 Order Status: Completed Lab Status: Preliminary result Updated: 04/07/19812 Specimen: Peripheral Blood Special Requests R WRIST Special Requests Testing performed at [facility];[address] [place] [id number] RESULT NO GROWTH AT THIS TIME RESULT Testing performed at [facility], [address] [place] [id number] Comment: Testing performed at [facility], [address] [place] [address]08 Culture, Blood [[id number]] Collected: 04/06/19330 Order Status: Completed Lab Status: Preliminary result Updated: 04/07/19812 Specimen: Peripheral Blood Special Requests L WRIST Special Requests Testing performed at [facility];[address] [place] [address] 52536 RESULT NO GROWTH AT THIS TIME RESULT Testing performed at [facility], [address] [place] [phone] Comment: Testing performed at [facility], [address] [place] [id number] Microbiology Results (72 hrs) No results found for the last 72 hours. IMAGING: No new images for review today. ASSESSMENT & PLAN The patient is a 74 y.o.-year-old male with the following problems: Active Hospital Problems Diagnosis Date Noted Essential hypertension 11/25/2017 Priority: High Insulin dependent diabetes mellitus 11/22/2017 Priority: High Peripheral vascular disease 11/22/2017 Priority: High Class 1 obesity with serious comorbidity in adult 11/22/2017 Priority: High Gross hematuria 04/08/2019 Hypomagnesemia 04/07/2019 NSTEMI (non-ST elevated myocardial infarction) 04/06/2019 Acute decompensated heart failure 04/06/2019 Acute respiratory failure 04/06/2019 Bacteremia 04/06/2019 History of stroke 04/06/2019 Chronic pain 04/06/2019 Other osteomyelitis of right foot 04/05/2019 GERD (gastroesophageal reflux disease) 05/15/2016 Acute left hemiparesis 05/14/2016 Resolved Hospital Problems No resolved problems to display. Clinically stable from ID standpoint. Continue current antibiotic regimen. Repeat CBC and CMP in the am. Awaiting vascular studies and amputation. Discussed with attending provider: Grover Charles MD . Hero Richardson MD, MPH Infectious Diseases 04/10/19 Aleksander Lujan MD - 04/10/2019 1:26 PM PSTFormatting of this note might be different from the ramiro [facility] Service: Urology Progress Note Hospital Day: LOS: 4 days Post-Op Day: * No surgery date entered * SUBJECTIVE Events Overnight: This is a 74-year-old gentleman who has nonhealing bilateral diabet ic foot ulcers with a history of osteomyelitis, history of stroke, insulin-dependent diabete s, CHF exacerbation, was noted to have gross hematuria. He is also in urinary retention and had Miller catheter placed in. Because of his incidence of gross hematuria, which resolved, subsequent to starting saline CBI. I worked him up with a renal ultrasound for the upper t ract. This showed normal-appearing kidneys and no signs of tumor, stone, hydronephrosis or other pathology. I came down to discuss the option of diagnostic cystoscopy and if necessa ry perform biopsy of any suspicious lesions with the patient. Scheduled Medications amLODIPine 5 mg Oral Daily atorvaSTATin 10 mg Oral Nightly cadexomer iodine Topical Every Other Day carvedilol 6.25 mg Oral BID WC DULoxetine 60 mg Oral Daily dutasteride 0.5 mg Oral Daily ferric gluconate 250 mg Intravenous Daily furosemide 40 mg Oral Daily gabapentin 300 mg Oral TID insulin glargine 30 Units Subcutaneous QAM insulin lispro 0-12 Units Subcutaneous 4x Daily WC and HS lidocaine 1 patch Transdermal Daily losartan 50 mg Oral Daily magnesium oxide 400 mg Oral Daily piperacillin-tazobactam 3.375 g Intravenous Q8H 27-0.8 mg multivitamin 1 tablet Oral Daily psyllium 1 packet Oral TID tamsulosin 0.4 mg Oral Nightly Continuous Infusions dextrose 10% PRN Medications acetaminophen, Hypoglycemia Management AND POCT Glucose AND dextrose AND dextro se 10%, lactulose, morphine, ondansetron, oxyCODONE OBJECTIVE Vital Signs: BP 95/51 | Pulse 70 | Temp 36.7 C (98 F) (Oral) | Resp 22 | Ht 1.778 m (5' 10") | Wt 108.4 kg (238 lb 15.7 oz) | SpO2 92% | BMI 34.29 kg/m Temp: [36.5 C (97.7 F)-36.9 C (98.5 F)] 36.7 C (98 F) Pulse: [64-70] 70 Resp: [18-22] 22 BP: (95-136)/(51-71) 95/51 General Appearance: Alert, cooperative, no distress, appears stated age Head: Normocephalic, without obvious abnormality, atraumatic Eyes: PERRL, conjunctiva/corneas clear, EOM's intact, fundi benign, both eyes Back: Symmetric, no curvature, ROM normal, no CVA tenderness Lungs: Clear to auscultation bilaterally, respirations unlabored Chest Wall: No tenderness or deformity Heart: Regular rate and rhythm, S1 and S2 normal, no murmur, rub or gallop Genitalia: normal, miller catheter in place and no active bleeding at this time Abdomen: Soft, non-tender, bowel sounds active all four quadrants, no masses, no organomegaly Extremities: Extremities normal, atraumatic, no cyanosis or edema Pulses: 2+ and symmetric all extremities Skin: Skin color, texture, turgor normal, no rashes or lesions Neurologic: CNII-XII intact, normal strength, sensation and reflexes Throughout DATA Recent Results (from the past 24 hour(s)) POC Glucose Result Value Ref Range Glucose, POC 169 (H) 65 - 99 mg/dL POC Glucose Result Value Ref Range Glucose, POC 151 (H) 65 - 99 mg/dL CBC no Differential Result Value Ref Range WBC 16.34 (H) 3.80 - 11.00 K/uL RBC 4.10 (L) 4.20 - 5.70 M/uL Hemoglobin 8.6 (L) 13.2 - 17.0 g/dL Hematocrit 27.6 (L) 39.0 - 50.0 % MCV 67.1 (L) 80.0 - 100.0 fl MCH 21.0 (L) 27.0 - 34.0 pg MCHC 31.3 (L) 32.0 - 35.5 g/dL RDW-SD 49.0 37 - 53 fl Platelet Count 354 150 - 400 K/uL MPV 8.3 fl POC Glucose Result Value Ref Range Glucose, POC 131 (H) 65 - 99 mg/dL Recent Results (from the past 360 hour(s)) XR Chest AP Portable Narrative CHEST PORTABLE ONE VIEW CLINICAL INFORMATION: Respiratory failure. COMPARISON: XR CHEST AP PORTABLE (11/26/2017); XR CHEST AP PORTABLE (11/22/2017); CT CHEST WO CONTRAST (11/20/2017); FINDINGS/IMPRESSION: 1. No lines or tubes. 2. Persistent hypoinflation of lungs with streaky parenchymal density in both lung bases and left suprahilar region and right osmani and suprahilar regions. Findings suggests diffuse bilateral atelectasis although pneumonia can not be entirely excluded. Diffuse interstitial prominence has increased since the prior exams and could represent interstitial edema. Probable small bilateral pleural effusions. No pneumothorax. 3. Cardiomediastinal contours are stable. Mild prominence of the cardiac silhouette is exaggerated by the hypoinflation. 4. No pneumothorax. Signed by: Madison Houser, Toby Sign Date/Time: 04/06/2019 6:40 AM VAS Lower Extremity Arteries Bilateral Narrative ULTRASOUND ARTERIAL DUPLEX, BILATERAL; LOWER EXTREMITY WITH COLOR DOPPLER CLINICAL INFORMATION: Nonhealing ulcers, bilateral feet. Diabetic. COMPARISON: None PROCEDURE: Duplex and color Doppler evaluation of the arteries of the lower extremities. FINDINGS: Peak systolic velocity and waveforms. All velocities in cm/sec. Right: Common Femoral Artery: 64, triphasic Profunda Femoral Artery: 111, triphasic Femoral Artery: Proximal: 253, biphasic Mid: 70, biphasic Distal: 72, biphasic Popliteal Artery: 69, biphasic Anterior Tibial Artery: 41, monophasic Posterior Tibial Artery: 106, monophasic (absent distally) Peroneal Artery: 57, monophasic Gore Scale Findings: Diffuse calcific plaque is identified throughout the right lower extremity. There is greater than 60% stenosis involving the proximal SFA. Left: Common Femoral Artery: 86, triphasic Profunda Femoral Artery: 86, triphasic Femoral Artery: Proximal: 72, triphasic Mid: 430, biphasic Distal: 65, biphasic Popliteal Artery: 125, biphasic Anterior Tibial Artery: 52, biphasic Posterior Tibial Artery: Absent Peroneal Artery: 36, biphasic Gore Scale Findings: Diffuse calcific plaque present throughout. There is greater than 70% stenosis involving the mid SFA. There is greater than 50% stenosis involving the proximal popliteal artery. There is near 50% stenosis involving the distal popliteal artery. Impression Right lower extremity: Significant proximal SFA stenosis. Monophasic waveforms demonstrated in the runoff vessels in the calf. No flow demonstrated distal posterior tibial artery. Left lower extremity: Significant stenoses identified in the mid SFA and proximal popliteal arteries. No flow demonstrated in the posterior tibial artery in the left calf. Signed by: Madison Jimenez Cameron Sign Date/Time: 04/06/2019 11:39 AM XR Foot Left 3 + Vw Narrative RIGHT FOOT THREE VIEWS; LEFT FOOT THREE VIEWS CLINICAL INFORMATION: Heel wound. Osteomyelitis.; Foot wound. Osteomyelitis. COMPARISON: MRI FOOT RIGHT W WO CONTRAST (11/20/2017); FINDINGS: RIGHT FOOT: Compared to the MRI from 11/2017, the posterior calcaneus is dysmorphic and truncated with cephalad directed osteophytosis. The plantar adjacent soft tissues are uniformly dense, irregular, and swollen. The undersurface of the bone is irregular, lytic and favor osteomyelitis. The nearby bone is sclerotic. The base of the 5th metatarsal is attenuated/truncated, a site of previous infection. The more distal bones are dysmorphic and demineralized and there is periosteal thickening of the mid diaphyses of the 4th and 3rd metatarsals also. LEFT FOOT: Destruction and malalignment across the 5th metatarsophalangeal joint of the left foot. Ulcer immediately adjacent. There is demineralization throughout and the 3rd digit is absent, with smooth tapering/truncation of the midbody of the 3rd metatarsal. Impression 1. Lysis of the plantar surface of the RIGHT calcaneus, compatible with osteomyelitis. Disease may be more fully mapped with MRI-which should be considered if a difference intervention is contemplated 2. Dysmorphic demineralized and nonacute appearing changes to bone throughout the right foot as above 3. Osteolysis and malalignment on both sides of the LEFT 5th metatarsophalangeal joint. Consistent with osteomyelitis and/or septic arthropathy there. Again, consider MRI Signed by: Madison Argueta Timothy Sign Date/Time: 04/07/2019 1:43 PM XR Foot Right 3 + Vw Narrative RIGHT FOOT THREE VIEWS; LEFT FOOT THREE VIEWS CLINICAL INFORMATION: Heel wound. Osteomyelitis.; Foot wound. Osteomyelitis. COMPARISON: MRI FOOT RIGHT W WO CONTRAST (11/20/2017); FINDINGS: RIGHT FOOT: Compared to the MRI from 11/2017, the posterior calcaneus is dysmorphic and truncated with cephalad directed osteophytosis. The plantar adjacent soft tissues are uniformly dense, irregular, and swollen. The undersurface of the bone is irregular, lytic and favor osteomyelitis. The nearby bone is sclerotic. The base of the 5th metatarsal is attenuated/truncated, a site of previous infection. The more distal bones are dysmorphic and demineralized and there is periosteal thickening of the mid diaphyses of the 4th and 3rd metatarsals also. LEFT FOOT: Destruction and malalignment across the 5th metatarsophalangeal joint of the left foot. Ulcer immediately adjacent. There is demineralization throughout and the 3rd digit is absent, with smooth tapering/truncation of the midbody of the 3rd metatarsal. Impression 1. Lysis of the plantar surface of the RIGHT calcaneus, compatible with osteomyelitis. Disease may be more fully mapped with MRI-which should be considered if a difference intervention is contemplated 2. Dysmorphic demineralized and nonacute appearing changes to bone throughout the right foot as above 3. Osteolysis and malalignment on both sides of the LEFT 5th metatarsophalangeal joint. Consistent with osteomyelitis and/or septic arthropathy there. Again, consider MRI Signed by: Madison Argueta Timothy Sign Date/Time: 04/07/2019 1:43 PM XR Chest AP Portable Narrative CHEST PORTABLE ONE VIEW CLINICAL INFORMATION: Shortness of breath. COMPARISON: XR CHEST AP PORTABLE (04/06/2019); XR CHEST AP PORTABLE (11/26/2017); XR CHEST AP PORTABLE (11/22/2017); FINDINGS: Lung volume remains low or is convex right thoracolumbar curvature process. The aorta is mildly calcified 5th opacity obscures the left hemidiaphragm she. A opacity in both lung bases similar the prior exam. No pneumothorax is demonstrated. Impression 1. No lines or tubes. 2. Bilateral basilar opacities may represent consolidation, pleural effusion, atelectasis, or a combination of these. 3. Low lung volumes done for scoliosis. Signed by: Madison Acosta, Ling Luis Sign Date/Time: 04/08/2019 9:32 AM XR Abdomen AP Narrative ABDOMEN ONE VIEW (KUB) CLINICAL INFORMATION: Abdominal pain COMPARISON: CT Abdomen/Pelvis w/IV (04/05/2013); GALLBLADDER ULTRASOUND (04/05/2013); Abdomen 1 View (04/22/2012); FINDINGS: Bowel gas pattern normal. No plain film evidence of ascites or mass. No abnormal calcifications. No significant bone abnormality. Impression Negative abdomen. Signed by: Madison Acosta C. Mark Sign Date/Time: 04/08/2019 2:53 PM XR Chest AP Portable Narrative CHEST PORTABLE ONE VIEW CLINICAL INFORMATION: Shortness of breath. COMPARISON: XR CHEST AP PORTABLE (04/08/2019); XR CHEST AP PORTABLE (04/06/2019); FINDINGS: The exam is hypoventilatory. Bilateral hilar prominence again noted presumably due to pulmonary arterial hypertension. No focal parenchymal opacities are noted. There is eventration of the left diaphragm. It would be difficult to exclude an element of congestive failure. No definite pneumothorax or pleural effusion identified. Impression Hypoventilatory exam, it would be difficult to exclude an element of congestive failure. Signed by: Madison Solis Sarsfield Sign Date/Time: 04/09/2019 9:25 AM US Renal Complete Narrative ULTRASOUND KIDNEYS AND BLADDER CLINICAL INFORMATION: Hematuria. COMPARISON: None PROCEDURE: Evaluation of the kidneys and urinary bladder. FINDINGS: Right kidney: 11.2 x 5.3 x 4.9 cm. No solid renal mass, hydronephrosis or definitive calculi. Left kidney: 12.1 x 5.0 x 5.7 cm. No solid renal mass, hydronephrosis or definitive calculi. The lower pole is poorly visualized due to bowel gas. Bladder: The bladder is collapsed around a Miller catheter balloon. Impression 1. Normal appearance of the kidneys. 2. Bladder is collapsed around a Miller catheter. Signed by: Karine Christina Edward Sign Date/Time: 04/10/2019 12:10 PM PROBLEM LIST Patient Active Problem List Diagnosis Sepsis Insulin dependent diabetes mellitus Peripheral vascular disease Osteomyelitis of right foot Class 1 obesity with serious comorbidity in adult Essential hypertension Acute left hemiparesis Acute osteomyelitis of calcaneum, right Hypokalemia GERD (gastroesophageal reflux disease) Ischemic stroke diagnosed during current admission Moderate protein-calorie malnutrition Received intravenous tissue plasminogen activator (tPA) in emergency department Type 2 diabetes mellitus NSTEMI (non-ST elevated myocardial infarction) Acute decompensated heart failure Acute respiratory failure Bacteremia History of stroke Chronic pain Hypomagnesemia Gross hematuria Other osteomyelitis of right foot ASSESSMENT & PLAN In summary, this is a 74-year-old gentleman who has a known history of obesity, essential h ypertension, insulin-dependent diabetes, history of VA, GERD, ischemic stroke, diffuse signi ficant peripheral vascular disease, bilateral nonhealing foot ulcers and osteomyelitis. He is catheter dependent and also had a gross hematuria. His initial workup with renal ultraso und showed those to be negative. I counseled the patient about possible need for cystoscop y. He understood the diagnostic nature of this procedure. The benefits, risks and alternat verna were discussed including possibility of bleeding, infection, bladder injury, bladder pe rforation, finding bladder cancer, needing for biopsy of any suspicious areas in the bladder as well as anesthetic risk factors. He willingly signed the consent and asked us to procee d. Code Status: Full Code Aleksander Montiel MD 04/10/2019 Nunu Gray RN - 04/10/2019 9:04 AM PSTPt is being followed by vascular surgery and is planning int erventions for 04/12/2019 and 04/16/2019 for angioplasty for both legs due to severe arterial disease. Please continue current wound care recommendations and wound care will follow up on 04/13/2019 after angioplasty has been completed for updating of POC. Right heel: Versatel, Aquacel AG, non-bordered foam and roll gauze. Stockinette to secure. Left foot: iodosorb ordered. Prevalon boots to both heels. QUYEN Elliott RN CWON 04/10/19 09:06 Brianda Marshall RN - 04/10/2019 5:25 AM PSTNo acute events. VSS. Continued with Q2 T&P. Continued with CBI urine is yellow with very little pink tinged no blood clots. Chart check complete Brianda Moses RN Aleksander Lujan MD - 04/09/2019 6:[address] [facility] Service: Urology Progress Note Hospital Day: LOS: 3 days Post-Op Day: * No surgery found * SUBJECTIVE Events Overnight: This 74-year-old gentleman with a known history of insulin-dependen t diabetes mellitus, advanced peripheral vascular disease, osteomyelitis of right foot, diab etic foot ulcers which are significant and advanced in both feet, left hemiparesis, essentia l hypertension, hyperkalemia, history of GERD and non-STEMI VA, history of bacteremia, histo ry of stroke. The patient had an episode of gross hematuria and has been resolved with the use of continuous bladder irrigation. His continuous bladder irrigation is running at a giovanny y low rate and no significant bleeding was noted overnight and during the day. Scheduled Medications amLODIPine 5 mg Oral Daily atorvaSTATin 10 mg Oral Nightly cadexomer iodine Topical Every Other Day carvedilol 6.25 mg Oral BID WC DULoxetine 60 mg Oral Daily dutasteride 0.5 mg Oral Daily ferric gluconate 250 mg Intravenous Daily [START ON 04/10/2019] furosemide 40 mg Oral Daily gabapentin 300 mg Oral TID insulin glargine 30 Units Subcutaneous QAM insulin lispro 0-12 Units Subcutaneous 4x Daily WC and HS lidocaine 1 patch Transdermal Daily losartan 50 mg Oral Daily magnesium oxide 400 mg Oral Daily piperacillin-tazobactam 3.375 g Intravenous Q8H 27-0.8 mg multivitamin 1 tablet Oral Daily tamsulosin 0.4 mg Oral Nightly Continuous Infusions dextrose 10% PRN Medications acetaminophen, Hypoglycemia Management AND POCT Glucose AND dextrose AND dextro se 10%, [START ON 04/10/2019] lactulose, morphine, ondansetron, oxyCODONE OBJECTIVE Vital Signs: BP 126/60 | Pulse 68 | Temp 36.9 C (98.5 F) (Oral) | Resp 18 | Ht 1.778 m (5' 10") | Wt 108.4 kg (238 lb 15.7 oz) | SpO2 95% | BMI 34.29 kg/m Temp: [36.7 C (98 F)-37 C (98.6 F)] 36.9 C (98.5 F) Pulse: [64-72] 68 Resp: [18-20] 18 BP: (99-159)/(52-75) 126/60 General Appearance: Alert, cooperative, no distress, appears stated age Head: Normocephalic, without obvious abnormality, atraumatic Eyes: PERRL, conjunctiva/corneas clear, EOM's intact, fundi benign, both eyes Back: Symmetric, no curvature, ROM normal, no CVA tenderness Lungs: Clear to auscultation bilaterally, respirations unlabored Chest Wall: No tenderness or deformity Heart: Regular rate and rhythm, S1 and S2 normal, no murmur, rub or gallop Genitalia: normal, miller cath with low rate CBI alnd drainage is clear as water Abdomen: Soft, non-tender, bowel sounds active all four quadrants, no masses, no organomegaly Extremities: Extremities normal, atraumatic, no cyanosis or edema Pulses: 2+ and symmetric all extremities Skin: Skin color, texture, turgor normal, no rashes or lesions Neurologic: CNII-XII intact, normal strength, sensation and reflexes Throughout DATA Recent Results (from the past 24 hour(s)) POC Glucose Result Value Ref Range Glucose, POC 179 (H) 65 - 99 mg/dL Fecal Hemoglobin Result Value Ref Range FECAL OCCULT BLD NEGATIVE NEG POC Glucose Result Value Ref Range Glucose, POC 168 (H) 65 - 99 mg/dL CBC no Differential Result Value Ref Range WBC 16.61 (H) 3.80 - 11.00 K/uL RBC 4.27 4.20 - 5.70 M/uL Hemoglobin 8.9 (L) 13.2 - 17.0 g/dL Hematocrit 29.0 (L) 39.0 - 50.0 % MCV 68.0 (L) 80.0 - 100.0 fl MCH 20.9 (L) 27.0 - 34.0 pg MCHC 30.7 (L) 32.0 - 35.5 g/dL RDW-SD 49.4 37 - 53 fl Platelet Count 419 (H) 150 - 400 K/uL MPV 8.1 fl Comprehensive Metabolic Panel Result Value Ref Range Na 134 (L) 135 - 145 mmol/L K 4.1 3.5 - 4.9 mmol/L Cl 96 (L) 99 - 109 mmol/L CO2 34 (H) 23 - 32 mmol/L Anion Gap 8 5 - 20 mmol/L Glucose 163 (H) 65 - 99 mg/dL BUN 18 8 - 25 mg/dL Creatinine 0.8 0.70 - 1.30 mg/dL BUN/Creatinine Ratio 23 Calcium 8.3 (L) 8.5 - 10.5 mg/dL Protein, Total 7.5 6.3 - 8.2 g/dL Albumin 2.0 (L) 3.3 - 4.8 g/dL Globulin 5.5 (H) 1.3 - 4.9 g/dL A/G Ratio 0.4 (L) 1.0 - 2.4 BILIRUBIN, TOTAL 0.6 0.1 - 1.5 mg/dL ALK PHOS 70 35 - 115 U/L AST 18 10 - 45 U/L ALT 18 10 - 65 U/L Estimated GFR >60 >60 mL/min/1.73m2 Sedimentation Rate Result Value Ref Range ESR 91 (H) 0 - 20 mm/Hr Urinalysis, Reflex Microscopic and/or Culture Result Value Ref Range Color, UA STRAW Clarity, UA CLEAR Specific [place], Urine 1.006 1.002 - 1.030 Leukocyte esterase, UA NEGATIVE NEG Nitrite, UA NEGATIVE NEG Urobilinogen, Ur <1.6 <1.6 mg/dL Protein, Urine (mg/dL) NEGATIVE NEG mg/dL pH, Urine 5.0 5.0 - 8.0 Blood, UA LARGE (A) NEG Ketones, UA NEGATIVE NEG mg/dL Bilirubin, UA NEGATIVE NEG Glucose, Ur NEGATIVE NEG mg/dL Urinalysis, Microscopic Only Result Value Ref Range WBC UA 3-5 0 - 5 /hpf RBC UA >100 0 - 2 /hpf SQUAMOUS EPITHELIAL UA NONE SEEN /lpf BACTERIA UA 1+ (A) NONE POC Glucose Result Value Ref Range Glucose, POC 149 (H) 65 - 99 mg/dL POC Glucose Result Value Ref Range Glucose, POC 169 (H) 65 - 99 mg/dL Recent Results (from the past 360 hour(s)) XR Chest AP Portable Narrative CHEST PORTABLE ONE VIEW CLINICAL INFORMATION: Respiratory failure. COMPARISON: XR CHEST AP PORTABLE (11/26/2017); XR CHEST AP PORTABLE (11/22/2017); CT CHEST WO CONTRAST (11/20/2017); FINDINGS/IMPRESSION: 1. No lines or tubes. 2. Persistent hypoinflation of lungs with streaky parenchymal density in both lung bases and left suprahilar region and right osmani and suprahilar regions. Findings suggests diffuse bilateral atelectasis although pneumonia can not be entirely excluded. Diffuse interstitial prominence has increased since the prior exams and could represent interstitial edema. Probable small bilateral pleural effusions. No pneumothorax. 3. Cardiomediastinal contours are stable. Mild prominence of the cardiac silhouette is exaggerated by the hypoinflation. 4. No pneumothorax. Signed by: Madison Houser Mark Sign Date/Time: 04/06/2019 6:40 AM VAS Lower Extremity Arteries Bilateral Narrative ULTRASOUND ARTERIAL DUPLEX, BILATERAL; LOWER EXTREMITY WITH COLOR DOPPLER CLINICAL INFORMATION: Nonhealing ulcers, bilateral feet. Diabetic. COMPARISON: None PROCEDURE: Duplex and color Doppler evaluation of the arteries of the lower extremities. FINDINGS: Peak systolic velocity and waveforms. All velocities in cm/sec. Right: Common Femoral Artery: 64, triphasic Profunda Femoral Artery: 111, triphasic Femoral Artery: Proximal: 253, biphasic Mid: 70, biphasic Distal: 72, biphasic Popliteal Artery: 69, biphasic Anterior Tibial Artery: 41, monophasic Posterior Tibial Artery: 106, monophasic (absent distally) Peroneal Artery: 57, monophasic Gore Scale Findings: Diffuse calcific plaque is identified throughout the right lower extremity. There is greater than 60% stenosis involving the proximal SFA. Left: Common Femoral Artery: 86, triphasic Profunda Femoral Artery: 86, triphasic Femoral Artery: Proximal: 72, triphasic Mid: 430, biphasic Distal: 65, biphasic Popliteal Artery: 125, biphasic Anterior Tibial Artery: 52, biphasic Posterior Tibial Artery: Absent Peroneal Artery: 36, biphasic Gore Scale Findings: Diffuse calcific plaque present throughout. There is greater than 70% stenosis involving the mid SFA. There is greater than 50% stenosis involving the proximal popliteal artery. There is near 50% stenosis involving the distal popliteal artery. Impression Right lower extremity: Significant proximal SFA stenosis. Monophasic waveforms demonstrated in the runoff vessels in the calf. No flow demonstrated distal posterior tibial artery. Left lower extremity: Significant stenoses identified in the mid SFA and proximal popliteal arteries. No flow demonstrated in the posterior tibial artery in the left calf. Signed by: Madison Jimenez Cameron Sign Date/Time: 04/06/2019 11:39 AM XR Foot Left 3 + Vw Narrative RIGHT FOOT THREE VIEWS; LEFT FOOT THREE VIEWS CLINICAL INFORMATION: Heel wound. Osteomyelitis.; Foot wound. Osteomyelitis. COMPARISON: MRI FOOT RIGHT W WO CONTRAST (11/20/2017); FINDINGS: RIGHT FOOT: Compared to the MRI from 11/2017, the posterior calcaneus is dysmorphic and truncated with cephalad directed osteophytosis. The plantar adjacent soft tissues are uniformly dense, irregular, and swollen. The undersurface of the bone is irregular, lytic and favor osteomyelitis. The nearby bone is sclerotic. The base of the 5th metatarsal is attenuated/truncated, a site of previous infection. The more distal bones are dysmorphic and demineralized and there is periosteal thickening of the mid diaphyses of the 4th and 3rd metatarsals also. LEFT FOOT: Destruction and malalignment across the 5th metatarsophalangeal joint of the left foot. Ulcer immediately adjacent. There is demineralization throughout and the 3rd digit is absent, with smooth tapering/truncation of the midbody of the 3rd metatarsal. Impression 1. Lysis of the plantar surface of the RIGHT calcaneus, compatible with osteomyelitis. Disease may be more fully mapped with MRI-which should be considered if a difference intervention is contemplated 2. Dysmorphic demineralized and nonacute appearing changes to bone throughout the right foot as above 3. Osteolysis and malalignment on both sides of the LEFT 5th metatarsophalangeal joint. Consistent with osteomyelitis and/or septic arthropathy there. Again, consider MRI Signed by: Madison Argueta, Jamar Sign Date/Time: 04/07/2019 1:43 PM XR Foot Right 3 + Vw Narrative RIGHT FOOT THREE VIEWS; LEFT FOOT THREE VIEWS CLINICAL INFORMATION: Heel wound. Osteomyelitis.; Foot wound. Osteomyelitis. COMPARISON: MRI FOOT RIGHT W WO CONTRAST (11/20/2017); FINDINGS: RIGHT FOOT: Compared to the MRI from 11/2017, the posterior calcaneus is dysmorphic and truncated with cephalad directed osteophytosis. The plantar adjacent soft tissues are uniformly dense, irregular, and swollen. The undersurface of the bone is irregular, lytic and favor osteomyelitis. The nearby bone is sclerotic. The base of the 5th metatarsal is attenuated/truncated, a site of previous infection. The more distal bones are dysmorphic and demineralized and there is periosteal thickening of the mid diaphyses of the 4th and 3rd metatarsals also. LEFT FOOT: Destruction and malalignment across the 5th metatarsophalangeal joint of the left foot. Ulcer immediately adjacent. There is demineralization throughout and the 3rd digit is absent, with smooth tapering/truncation of the midbody of the 3rd metatarsal. Impression 1. Lysis of the plantar surface of the RIGHT calcaneus, compatible with osteomyelitis. Disease may be more fully mapped with MRI-which should be considered if a difference intervention is contemplated 2. Dysmorphic demineralized and nonacute appearing changes to bone throughout the right foot as above 3. Osteolysis and malalignment on both sides of the LEFT 5th metatarsophalangeal joint. Consistent with osteomyelitis and/or septic arthropathy there. Again, consider MRI Signed by: Madison Argueta Timothy Sign Date/Time: 04/07/2019 1:43 PM XR Chest AP Portable Narrative CHEST PORTABLE ONE VIEW CLINICAL INFORMATION: Shortness of breath. COMPARISON: XR CHEST AP PORTABLE (04/06/2019); XR CHEST AP PORTABLE (11/26/2017); XR CHEST AP PORTABLE (11/22/2017); FINDINGS: Lung volume remains low or is convex right thoracolumbar curvature process. The aorta is mildly calcified 5th opacity obscures the left hemidiaphragm she. A opacity in both lung bases similar the prior exam. No pneumothorax is demonstrated. Impression 1. No lines or tubes. 2. Bilateral basilar opacities may represent consolidation, pleural effusion, atelectasis, or a combination of these. 3. Low lung volumes done for scoliosis. Signed by: Madison Acosta, Ling Luis Sign Date/Time: 04/08/2019 9:32 AM XR Abdomen AP Narrative ABDOMEN ONE VIEW (KUB) CLINICAL INFORMATION: Abdominal pain COMPARISON: CT Abdomen/Pelvis w/IV (04/05/2013); GALLBLADDER ULTRASOUND (04/05/2013); Abdomen 1 View (04/22/2012); FINDINGS: Bowel gas pattern normal. No plain film evidence of ascites or mass. No abnormal calcifications. No significant bone abnormality. Impression Negative abdomen. Signed by: Madison Acosta, Ling Luis Sign Date/Time: 04/08/2019 2:53 PM XR Chest AP Portable Narrative CHEST PORTABLE ONE VIEW CLINICAL INFORMATION: Shortness of breath. COMPARISON: XR CHEST AP PORTABLE (04/08/2019); XR CHEST AP PORTABLE (04/06/2019); FINDINGS: The exam is hypoventilatory. Bilateral hilar prominence again noted presumably due to pulmonary arterial hypertension. No focal parenchymal opacities are noted. There is eventration of the left diaphragm. It would be difficult to exclude an element of congestive failure. No definite pneumothorax or pleural effusion identified. Impression Hypoventilatory exam, it would be difficult to exclude an element of congestive failure. Signed by: Madison Solis, [facility] Sign Date/Time: 04/09/2019 9:25 AM PROBLEM LIST Patient Active Problem List Diagnosis Sepsis Insulin dependent diabetes mellitus Peripheral vascular disease Osteomyelitis of right foot Class 1 obesity with serious comorbidity in adult Essential hypertension Acute left hemiparesis Acute osteomyelitis of calcaneum, right Hypokalemia GERD (gastroesophageal reflux disease) Ischemic stroke diagnosed during current admission Moderate protein-calorie malnutrition Received intravenous tissue plasminogen activator (tPA) in emergency department Type 2 diabetes mellitus NSTEMI (non-ST elevated myocardial infarction) Acute decompensated heart failure Acute respiratory failure Bacteremia History of stroke Chronic pain Hypomagnesemia Gross hematuria ASSESSMENT & PLAN In conclusion, this is a 74-year-old gentleman with history of advanced diabetic foot ulcer s, osteomyelitis of right foot, has longstanding history of diabetes, hypertension, GERD, ac huslia left hemiparesis, essential hypertension and very advanced peripheral vascular disease. He was noted to have significant hematuric episode, which resolved with starting continuous bladder irrigation. I came down and counseled him about the possibility of undergoing diagnostic cystoscopy and limited upper tract workup. The options were discussed including renal ultrasound and CT s can. The patient would like to undergo renal ultrasound and this study will be ordered. I will also rediscuss indications for cystoscopy and informed consent with him. He will be ke pt nothing by mouth after breakfast in the morning. Code Status: Full Code Aleksander Montiel MD 04/09/[address] - 04/09/2019 5:14 PM PST . NUTRITION NOTE Summary Pt admitted for sxs HF with hx T2DM on insulin, DFUs and osteomyelitis, stroke/TBI. Pt mariluz l have angio of both LEs and then POC will be developed for treatment. Uncertain if Devin w ound healing supplement will be effective if vascular disease if preventing good blood flow to bring essential nutrients to the wounds. Will f/u after POC for treatment is revealed. Diet Experience Self-Selected Diet: good oral intake, doing his best to maintain good BG control, A1c is im proved over last 3 years from 14.7 to 7.8 Fluid/Beverage Intake Oral Fluids Amount: ad bryant Food Intake Amount of Food: 50-100% meals Type of Food/Meals: Current active diet order is: Diet Diet general; consistent carbohydrate; Effective Now Nourishments: indicated for Devin if thought pt will benefit - will confer with vascular surgery Nutrition-Focused Physical Findings Overall Appearance: Class I obesity - no s/sxs malnutrition by exam Body Language: cooperative Extremities, Muscles and Bones: no edema observed Digestive System (Mouth to Rectum): no chew/swalow deficits; +BM, Type 4 today Nerves and Cognition: alert, forgetful, poor historian Skin: WOC, podiatry, vascular surgery - all following for DFUs and osteomyelitis BLE Anthropometrics stable Current Weight: 108.4 kg (238 lb 15.7 oz) Admit Weight: 109.3 kg (240 lb 14.4 oz) Biochemical Data, Medical Test, and Procedures Recent Labs 04/09/19 0616 04/07/19 0502 NA 134* < > 134* K 4.1 < > 4.6 GLU 163* < > 205* BUN 18 < > 21 CREA 0.8 < > 0.9 MG -- -- 2.1 < > = values in this interval not displayed. Recommendations Nutrition Prescription Ordered Nutrition Order Comments: No nutrition dx at this time. Continue current diet as Rx'd. Mariluz lopez follow progress/course and offer wound healing supplements as indicated when POC/GOC are k nown. Following with team. Nutritional Risk Required Follow Up: (L 04/16/2019) Radha Anaya RD 04/09/2019 5:14 PM Beatrice Wakefield PA-C - 04/09/2019 1:55 PM PSTFormatting of this note might be different from the [facility] Service: Vascular Surgery Progress Note SUBJECTIVE Patient Summary: 74 y.o. man with complex medical issues and LE ischemic ulcers, he wa s recently admitted to the [facility] from 03/28/19 to 04/04/19 where he was treated/ diagnosed with systolic heart failure, type 2 VA/NSTEMI, SHAE, ARF. O2 desaturation brought him from SNF to [facility] and current admission today with CHF and +tropo olivia. He is on IV heparin for his cardiac condition. Strep. agalactiae bacteremia, likely disseminated from patient non-healing diabetic foot ul cers. Patient currently being treated with oral Augmentin for this. Patient had undergone bedside debridement with Dr. Ceballos (podiatry). Events Overnight: No acute events overnight. No plans for further intervention per po diatry. OBJECTIVE Vital Signs: Vitals: 04/09/19 1311 BP: 99/52 Pulse: Resp: Temp: Physical Exam Constitutional: Well nourished, no signs of distress HENT: Non icteric sclerae, oropharynx clear. Cardiovascular: Normal rate, regular rhythm Pulmonary/Chest: No respiratory distress. Abdominal: Soft. No abdominal distension or tenderness. No abdominal pulsatile mass noted. Musculoskeletal: Normal range of motion. No evidence of arthritis. Neurological: Alert and oriented. No muscle weakness and normal gait. VASCULAR: Palpable femoral pulse bilaterally. Wounds to bilateral feet, dressings on and dr rashaad. Dopplerable DP bilaterally. Right heel ulcer. Left lateral eschar. No drainage noted. Labs: Lab Results Component Value Date WBC 16.61 (H) 04/09/2019 HGB 8.9 (L) 04/09/2019 HCT 29.0 (L) 04/09/2019 PLT 419 (H) 04/09/2019 CHOL 55 04/06/2019 TRIG 78 04/06/2019 HDL 26 (L) 04/06/2019 LDL 13 04/06/2019 ALT 18 04/09/2019 AST 18 04/09/2019 NA 134 (L) 04/09/2019 K 4.1 04/09/2019 CL 96 (L) 04/09/2019 CREA 0.8 04/09/2019 BUN 18 04/09/2019 CO2 34 (H) 04/09/2019 INR 1.2 04/06/2019 GLUF 197 (A) 08/21/2018 PROBLEM LIST Patient Active Problem List Diagnosis Date Noted POA Essential hypertension 11/25/2017 Yes Priority: High Insulin dependent diabetes mellitus 11/22/2017 Yes Priority: High Peripheral vascular disease 11/22/2017 Yes Priority: High Osteomyelitis of right foot 11/22/2017 Unknown Priority: High Class 1 obesity with serious comorbidity in adult 11/22/2017 Yes Priority: High Gross hematuria 04/08/2019 Yes Hypomagnesemia 04/07/2019 Yes NSTEMI (non-ST elevated myocardial infarction) 04/06/2019 Unknown Acute decompensated heart failure 04/06/2019 Unknown Acute respiratory failure 04/06/2019 Unknown Bacteremia 04/06/2019 Unknown History of stroke 04/06/2019 Unknown Chronic pain 04/06/2019 Unknown Acute osteomyelitis of calcaneum, right 07/14/2018 Unknown Sepsis 11/19/2017 Unknown Hypokalemia 05/15/2016 Unknown GERD (gastroesophageal reflux disease) 05/15/2016 Yes Acute left hemiparesis 05/14/2016 Unknown Ischemic stroke diagnosed during current admission 05/14/2016 Unknown Moderate protein-calorie malnutrition 05/14/2016 Unknown Received intravenous tissue plasminogen activator (tPA) in emergency department 017 Unknown Type 2 diabetes mellitus 05/14/2016 Unknown ASSESSMENT & PLAN Peripheral arterial disease / Bilateral gangrenous wounds of feet - The patient will requir e angiogram with intervention in order to increase his chances of healing after any podiatry intervention. He will need to have both legs done given his severe disease and bilateral wo unds. We will have him scheduled for 04/12/2019 at [facility] Inspector for his first leg, then will plan the other leg for Tuesday04/16/2019. In between angiograms, he will require hy dration to flush the contrast. For now, continue pain management and antibiotics. Vascular w ill continue to follow. Code Status: Full code Bhanu Seaman PA-C Vascular Surgery Anu Dudley P T - 04/09/2019 1:30 PM PSTMISSED THERAPY VISIT Physical Therapy attempted to see the following patient today: Reagan Shepard Missed Visit (patient declined) (P) Pt in bed, BP noted to be soft 90's systolic. RN notified. Pt adimately refusing mobi lity "I'm pooped". Ed on importance of mobility/ther ex, continues to refuse. Recommend OO B w/angeles lift until BLE WB status clarfied. WIll continue mobility attempts as census perm its. Ady Hobbs MD - 04/09/2019 12:32 PM PST Hospitalist Progress Note Reagan Shepard 74 y.o. [id number] male Jamar Manuel MD Hospital Day: LOS: 3 days Patient Summary: 74-year-old gentleman with past medical history of bilateral nonheali ng diabetic foot ulcer, and history of traumatic brain injury, stroke, diabetes mellitus typ e 2 insulin-dependent who was recently admitted to [facility] from 03/28/21 020 with acute hypoxic respiratory failure secondary to systolic CHF exacerbation with eject ion fraction of 40%, CTA chest negative for PE, troponin was minimally elevated 0.44 treated conservatively with medical therapy discharge to [facility] who went back to [facility] emergency department with worsening shortness of breath secondary to acute hyp oxic respiratory failure from congestive heart failure, found to have elevated troponin of 0 .17, elevated BNP and required 2 to 3 L of oxygen to maintain oxygen saturation more than 90 %. Dr. New Ruelas was called who accepted the patient in transfer as a consultin g physician and hospitalist service called to admit the patient for further work-up and noe tment. Patient also found to have streptococcal agalactiae bacteremia thought to be seconda ry to nonhealing diabetic foot ulcer for which she was treated with 8 days of IV antibiotic then discharged home on oral Augmentin. Patient started on Rocephin IV, wound culture grew Enterobacter and enterococcal hence antibiotic changed to Zosyn on 09 April after talkin g to infectious disease. Patient was evaluated by Dr. New Ruelas from cardiology who recommend medical ma nagement and work-up for anemia. Patient doing well on aspirin, metoprolol, lisinopril, sta tin. His anemia work-up showed profound iron deficiency started on IV iron, B12 folate with in normal limits. Streptococcal agalactiae bacteremia for which he was treated with IV antibiotic for 8 days discharged home on Augmentin and restarted on Rocephin 2 g IV daily on repeat blood cu lture from remain negative. Peripheral artery disease: Ultrasound vascular of lower extremity showed significant proxim al SFA stenosis. Monophasic waveform demonstrated in the runoff vessels in the calf no flow demonstrated distal posterior tibial artery Left lower extremity showed significant stenosis identified in the mid SFA and proximal pop liteal arteries. No flow demonstrated in the posterior tibial artery in the left cough. Vascular surgery on board Bilateral foot ulcer for which wound care and podiatry following the patient 04/08 with gross hematuria likely secondary to traumatic Miller, heparin and aspirin held and started on continuous bladder irrigation with resolution of hematuria, urology on board SUBJECTIVE and Events Overnight: Patient seen and examine. Patient had episode of gross hematuria last night again improved with bladder irrigation still having very tinge of blood in the urine. Patient denied any chest pain no shortness of breath no nausea no vomiting and his constipation resolved no blo od per rectum scheduled Medications amLODIPine 5 mg Oral Daily atorvaSTATin 10 mg Oral Nightly cadexomer iodine Topical Every Other Day carvedilol 12.5 mg Oral BID WC DULoxetine 60 mg Oral Daily dutasteride 0.5 mg Oral Daily ferric gluconate 250 mg Intravenous Daily furosemide 40 mg Intravenous BID (8 and 16) gabapentin 300 mg Oral TID insulin glargine 30 Units Subcutaneous QAM insulin lispro 0-12 Units Subcutaneous 4x Daily WC and HS lactulose 30 mL Oral 4x Daily lidocaine 1 patch Transdermal Daily losartan 50 mg Oral Daily magnesium oxide 400 mg Oral Daily piperacillin-tazobactam 3.375 g Intravenous Once piperacillin-tazobactam 3.375 g Intravenous Q8H 27-0.8 mg multivitamin 1 tablet Oral Daily tamsulosin 0.4 mg Oral Nightly Continuous Infusions dextrose 10% PRN Medications acetaminophen, Hypoglycemia Management AND POCT Glucose AND dextrose AND dextro se 10%, morphine, ondansetron, oxyCODONE Allergy: No Known Allergies OBJECTIVE Vital Signs: BP 100/75 | Pulse 64 | Temp 36.7 C (98 F) (Oral) | Resp 18 | Ht 1.778 m (5' 10") | Wt 108.4 kg (238 lb 15.7 oz) | SpO2 93% | BMI 34.29 kg/m @VSRANGES2@ I&O Detailed Table: Intake/Output Summary (Last 24 hours) at 04/09/2019 1232 Last data filed at 04/09/2019 1044 Gross per 24 hour Intake 88639 ml Output 9850 ml Net 856 ml Hemodynamics Last 24hrs: Examination: Constitutional: Alert and oriented to person, place, and time. Cardiovascular: Normal rate, regular rhythm, normal heart sounds and intact distal pulses. Exam reveals no gallop and no friction rub. Pulmonary/Chest: Effort normal and breath sounds normal. No stridor. No respiratory distres s. - wheezes. no rales. exhibits no tenderness. Except decreased breath sound at the bases Abdominal: Soft. Bowel sounds are normal. exhibits no distension and no mass. There is no t enderness. There is no rebound and no guarding. Musculoskeletal: Normal range of motion.exhibits no tenderness. exhibits no edema. Neurological: Alert and oriented to person, place, and time. Has normal reflexes. display s normal reflexes. Skin: Multiple healing ulcers on lower extremities and in both foot ulcers with dressing i n place Psychiatric: Has a normal mood and affect. Behavior is normal. Judgment fair Laboratory: Glucose: No results for input(s): GLUF in the last 72 hours. CBC: Lab Results Component Value Date WBC 16.61 (H) 04/09/2019 RBC 4.27 04/09/2019 RBC 5.12 08/21/2018 HGB 8.9 (L) 04/09/2019 HCT 29.0 (L) 04/09/2019 MCV 68.0 (L) 04/09/2019 MCH 20.9 (L) 04/09/2019 MCHC 30.7 (L) 04/09/2019 PLT 419 (H) 04/09/2019 MPV 8.1 04/09/2019 DIFFTYPE MANUAL 04/06/2019 CMP: Lab Results Component Value Date NA 134 (L) 04/09/2019 K 4.1 04/09/2019 CL 96 (L) 04/09/2019 CO2 34 (H) 04/09/2019 ANIONGAP 8 04/09/2019 GLUF 197 (A) 08/21/2018 BUN 18 04/09/2019 GLOB 3.2 08/21/2018 AGRATIO 0.4 (L) 04/09/2019 BILITOT 0.5 08/21/2018 AST 18 04/09/2019 ALT 18 04/09/2019 EGFR >60 04/09/2019 Magnesium: Lab Results Component Value Date MG 2.1 04/07/2019 Phosphorus: No results found for: PHOS PT/INR: Lab Results Component Value Date INR 1.2 04/06/2019 Last 3 Troponin: No components found for: TROPONINI ABG: No results found for: POCTEMP, POCFIO2, POCPO2, BEART @RISRESULT@ PROBLEM LIST Principal Problem: Gross hematuria Active Problems: Insulin dependent diabetes mellitus Peripheral vascular disease Class 1 obesity with serious comorbidity in adult Essential hypertension GERD (gastroesophageal reflux disease) NSTEMI (non-ST elevated myocardial infarction) Acute decompensated heart failure Acute respiratory failure Bacteremia History of stroke Chronic pain Hypomagnesemia ASSESSMENT & PLAN Acute hypoxic respiratory failure secondary to systolic CHF exacerbation with most recent e jection fraction of 40% doing better Plan continue patient on Coreg, losartan, change Lasix 40 mg IV twice daily to Lasix p.o. d aily Gross hematuria: Likely secondary to traumatic Miller resolved with continuous bladder irrig ation will still have very light pink color urine Plan hold heparin and aspirin which can be restarted if no hematuria in next 24-hour Urology on board Obstipation: resolved after patient started on lactulose Elevated troponin thought to be secondary demand ischemia from CHF and anemia currently asy mptomatic chest pain-free Plan continue patient on aspirin, Coreg, atorvastatin and patient evaluated by cardiology w ho recommended medical management only Hypertension highly elevated Plan increase to 12.5 mg twice daily, continue losartan and amlodipine gram added Diabetes mellitus type 2 with A1c of 7.8 suggest poorly controlled diabetes blood sugar sti ll running in 200s Plan increase Lantus to 30 units and continue insulin sliding scale Peripheral artery disease on aspirin, atorvastatin and vascular surgery on board Bilateral foot ulcer: Being managed by wound care and appreciate podiatry input Recent history of streptococcal bacteremia who received 8 days of IV antibiotic at [facility] discharged home on on Augmentin readmitted on at [facility] and started on Rocephin after sending 2 set of blood cultures which remain negative. Wound culture gre w Enterobacter and Enterococcus faecalis Plan antibiotic changed to Zosyn, Rocephin discontinued Infectious disease consulted Anemia secondary to iron deficiency Plan continue on IV iron day 3, guaiac stools -ve Hypomagnesemia repleted DVT prophylaxis on heparin currently on hold due to hematuria Ady Yin MD 04/09/2019 Sallie Da Silva DPM - 04/09/2019 7:05 AM PSTFormatting of this note might be different from the o sheryl. [facility] Service: Podiatry Progress Note Hospital Day: LOS: 3 days Post-Op Day: * No surgery found * SUBJECTIVE Patient Summary: The patient is 74 y.o. male with significant cardiac and IDDM2 past medical history with recent admissions to [facility] where he was found to have el evated troponin level and he became decompensated and desaturated and was transferred to [facility] for a higher level of care. Although the concern was for elevated troponin heart attack the patient is also septic upon admission. While the patient is being worked up by cardiac and vascular, he was diagnosed with strep which the hospitalist felt may be coming from his nonhealing diabetic foot ulcers, in which I was consulted for recommendations. Patient appears to be currently treated with oral Augmentin. Lower extremity ultrasound te stings showed severe stenosis at multiple levels of both lower extremities. There appears t o be poor or no flow demonstrated to the distal arteries. Interval Events: X-rays from Tuesday show osteomyelitis to both feet in the areas of ulceration, likely acute on chronic for the left foot if it is experiencing drainage and pur ulence. Scheduled Medications amLODIPine 5 mg Oral Daily atorvaSTATin 10 mg Oral Nightly cadexomer iodine Topical Every Other Day carvedilol 12.5 mg Oral BID WC cefTRIAXone 2 g Intravenous Daily DULoxetine 60 mg Oral Daily dutasteride 0.5 mg Oral Daily ferric gluconate 250 mg Intravenous Daily furosemide 40 mg Intravenous BID (8 and 16) gabapentin 300 mg Oral TID insulin glargine 30 Units Subcutaneous QAM insulin lispro 0-12 Units Subcutaneous 4x Daily WC and HS lactulose 30 mL Oral 4x Daily lidocaine 1 patch Transdermal Daily losartan 50 mg Oral Daily magnesium oxide 400 mg Oral Daily 27-0.8 mg multivitamin 1 tablet Oral Daily tamsulosin 0.4 mg Oral Nightly Continuous Infusions dextrose 10% PRN Medications acetaminophen, Hypoglycemia Management AND POCT Glucose AND dextrose AND dextro se 10%, morphine, ondansetron, oxyCODONE OBJECTIVE Vital Signs: Vitals: 04/09/19 0256 BP: 159/72 Pulse: 72 Resp: 18 Temp: 37 C (98.6 F) Physical Exam Constitutional: Oriented to person, place, and time. appears well-developed and well-nouris hed.Obese Cardiovascular: Normal rate, regular rhythm, normal heart sounds with S1 and S2. Exam rev eals no gallop and no friction rub. Systolic murmur possibly heard. Pulmonary/Chest: Effort increased and breath soundscourse at bases. No stridor. No respir atory distress. no rales. exhibits no tenderness. Abdominal:Soft. Bowel sounds are normal. exhibits no distension and no mass. There is no tenderness. There is no rebound and no guarding. Neurological: Alert and oriented to person, but not place and time.Has normal reflexes. No cranial nerve deficit. Exhibits normal muscle tone. Coordination normal. Skin: Skin is warm and dry. No rash noted. No erythema. No pallor. Psychiatric:Patient somewhat agitated, requesting food. Focused lower extremity exam: Pedal pulses non-palpable, 2+ pre-tibial edema, CFTs slow. Gross sensation absent. Bilateral muscle strength 4/5 bilateral to all groups, ROM decreased. Skin cool to touch and very thin, atrophic, and pigmented. Ulcerations are bandaged today, c/d/i, no strikethrough. DATA Recent Results (from the past 24 hour(s)) POC Glucose Collection Time: 04/08/19 11:25 AM Result Value Ref Range Glucose, POC 266 (H) 65 - 99 mg/dL POC Glucose Collection Time: 04/08/19 6:34 PM Result Value Ref Range Glucose, POC 179 (H) 65 - 99 mg/dL Fecal Hemoglobin Collection Time: 04/08/19 7:27 PM Result Value Ref Range FECAL OCCULT BLD NEGATIVE NEG POC Glucose Collection Time: 04/08/19 10:09 PM Result Value Ref Range Glucose, POC 168 (H) 65 - 99 mg/dL PROBLEM LIST Principal Problem: Gross hematuria Active Problems: Insulin dependent diabetes mellitus Peripheral vascular disease Class 1 obesity with serious comorbidity in adult Essential hypertension GERD (gastroesophageal reflux disease) NSTEMI (non-ST elevated myocardial infarction) Acute decompensated heart failure Acute respiratory failure Bacteremia History of stroke Chronic pain Hypomagnesemia ASSESSMENT & PLAN 1. PVD 2. Bilateral foot ulcerations 3. Osteomyelitis, both feet Patient followed by vascular, poor surgical candidate due to his cardiac history. Likely w ill not be getting revascularized anytime soon, which means he has poor vascular status to d istal lower extremities in which we will not be doing any surgical intervention to the feet to prevent creating larger, worsening non-healing wounds and create an increased infection r isk. If acute osteomyelitis is a concern for his sepsis, he will likely need above or below knee amputation depending on vascular status. Wound culture of right heel shows normal celsa, left foot still pending. X-rays showed bony destruction to the areas of open ulceration on both feet, looks more chronic than acute, bu t may still be the source of his sepsis. Wounds are being managed well by wound care team, podiatry will sign off. Please re-consult if patient receives vascular intervention and surgical intervention is needed/indicated. Code Status: Full Code Duong Ramírez DPM 04/09/2019 Ady Mata RN - 04/08/2019 9:49 PM [id number]: pt a/o to all, vss. cbi in place output is l ight pink in color with no clotting present. C/o pain in back and abd, tx with morphine prn per orders. Pulses ble dopplered. guaic resulted negative today. Iv sl and patent. Pt incont of bm's, changed prn. Miller care completed with gown/sheet change. Turning as pt allows wit h pressure relief using pillows. prevalon boots in place. 0200: pt awake most of shift. Denies wanting anything to assist with rest, denies wanting p ain medication for moderate general pain. Urine clear, light yellow in color. End of shift chart review complete Ady Hobbs MD - 04/08/2019 1:18 PM PST Hospitalist Progress Note Reagan Shepard 74 y.o. [id number] male Jamar Manuel MD Hospital Day: LOS: 2 days Patient Summary: 74-year-old gentleman with past medical history of bilateral nonheali ng diabetic foot ulcer, and history of traumatic brain injury, stroke, diabetes mellitus typ e 2 insulin-dependent who was recently admitted to [facility] from 03/28/21 020 with acute hypoxic respiratory failure secondary to systolic CHF exacerbation with eject ion fraction of 40%, CTA chest negative for PE, troponin was minimally elevated 0.44 treated conservatively with medical therapy discharge to [facility] who went back to [facility] emergency department with worsening shortness of breath secondary to acute hyp oxic respiratory failure from congestive heart failure, found to have elevated troponin of 0 .17, elevated BNP and required 2 to 3 L of oxygen to maintain oxygen saturation more than 90 %. Dr. New Ruelas was called who accepted the patient in transfer as a consultin g physician and hospitalist service called to admit the patient for further work-up and noe tment. Patient also found to have streptococcal agalactiae bacteremia thought to be seconda ry to nonhealing diabetic foot ulcer for which she was treated with 8 days of IV antibiotic then discharged home on oral Augmentin. Patient was evaluated by Dr. New Ruelas from cardiology who recommend medical ma nagement and work-up for anemia. Patient doing well on aspirin, metoprolol, lisinopril, sta tin. His anemia work-up showed profound iron deficiency started on IV iron, B12 folate with in normal limits. Streptococcal agalactiae bacteremia for which he was treated with IV antibiotic for 8 days discharged home on Augmentin and restarted on Rocephin 2 g IV daily on repeat blood cu lture from remain negative. Peripheral artery disease: Ultrasound vascular of lower extremity showed significant proxim al SFA stenosis. Monophasic waveform demonstrated in the runoff vessels in the calf no flow demonstrated distal posterior tibial artery Left lower extremity showed significant stenosis identified in the mid SFA and proximal pop liteal arteries. No flow demonstrated in the posterior tibial artery in the left cough. Vascular surgery on board Bilateral foot ulcer for which wound care and podiatry following the patient 04/08 with gross hematuria likely secondary to traumatic Miller, heparin and aspirin held and started on continuous bladder irrigation with resolution of hematuria, urology on board SUBJECTIVE and Events Overnight: Patient seen and examine. No acute over night event except patient has gross hematuria sinc e last night and complaining of constipation no BM since admission. Patient shortness of br eath is getting better, denied any chest pain no dizziness no lightheadedness or any other c omplaint Scheduled Medications atorvaSTATin 10 mg Oral Nightly cadexomer iodine Topical Every Other Day carvedilol 12.5 mg Oral BID WC cefTRIAXone 2 g Intravenous Daily DULoxetine 60 mg Oral Daily dutasteride 0.5 mg Oral Daily ferric gluconate 250 mg Intravenous Daily furosemide 40 mg Intravenous BID (8 and 16) gabapentin 300 mg Oral TID [START ON 04/09/2019] insulin glargine 30 Units Subcutaneous QAM insulin lispro 0-12 Units Subcutaneous 4x Daily WC and HS lactulose 30 mL Oral BID lidocaine 1 patch Transdermal Daily lisinopril 10 mg Oral Daily magnesium oxide 400 mg Oral Daily 27-0.8 mg multivitamin 1 tablet Oral Daily tamsulosin 0.4 mg Oral Nightly Continuous Infusions dextrose 10% PRN Medications acetaminophen, Hypoglycemia Management AND POCT Glucose AND dextrose AND dextro se 10%, morphine, ondansetron, oxyCODONE Allergy: No Known Allergies OBJECTIVE Vital Signs: BP 160/78 | Pulse 69 | Temp 37 C (98.6 F) (Oral) | Resp 18 | Ht 1.778 m (5' 10") | Wt 109.3 kg (240 lb 14.4 oz) | SpO2 98% | BMI 34.57 kg/m @VSRANGES2@ I&O Detailed Table: Intake/Output Summary (Last 24 hours) at 04/08/2019 1318 Last data filed at 04/08/2019 1129 Gross per 24 hour Intake 525 ml Output 3100 ml Net -2575 ml Hemodynamics Last 24hrs: Examination: Constitutional: Alert and oriented to person, place, and time. Cardiovascular: Normal rate, regular rhythm, normal heart sounds and intact distal pulses. Exam reveals no gallop and no friction rub. Pulmonary/Chest: Effort normal and breath sounds normal. No stridor. No respiratory distres s. + wheezes. no rales. exhibits no tenderness. Except bibasilar crackles Abdominal: Soft. Bowel sounds are normal. exhibits no distension and no mass. There is no t enderness. There is no rebound and no guarding. Musculoskeletal: Normal range of motion.exhibits no tenderness. exhibits no edema. Neurological: Alert and oriented to person, place, and time. Has normal reflexes. display s normal reflexes. Skin: Multiple healing ulcers on lower extremities and is both foot ulcers with dressing in place Psychiatric: Has a normal mood and affect. Behavior is normal. Judgment fair Laboratory: Glucose: No results for input(s): GLUF in the last 72 hours. CBC: Lab Results Component Value Date WBC 10.47 04/08/2019 RBC 4.14 (L) 04/08/2019 RBC 5.12 08/21/2018 HGB 8.8 (L) 04/08/2019 HCT 28.1 (L) 04/08/2019 MCV 68.0 (L) 04/08/2019 MCH 21.2 (L) 04/08/2019 MCHC 31.2 (L) 04/08/2019 PLT 376 04/08/2019 MPV 8.2 04/08/2019 DIFFTYPE MANUAL 04/06/2019 CMP: Lab Results Component Value Date NA 134 (L) 04/08/2019 K 5.0 (H) 04/08/2019 CL 97 (L) 04/08/2019 CO2 34 (H) 04/08/2019 ANIONGAP 8 04/08/2019 GLUF 197 (A) 08/21/2018 BUN 18 04/08/2019 GLOB 3.2 08/21/2018 AGRATIO 0.4 (L) 04/08/2019 BILITOT 0.5 08/21/2018 AST 19 04/08/2019 ALT 20 04/08/2019 EGFR >60 04/08/2019 Magnesium: Lab Results Component Value Date MG 2.1 04/07/2019 Phosphorus: No results found for: PHOS PT/INR: Lab Results Component Value Date INR 1.2 04/06/2019 Last 3 Troponin: No components found for: TROPONINI ABG: No results found for: POCTEMP, POCFIO2, POCPO2, BEART @RISRESULT@ PROBLEM LIST Principal Problem: Gross hematuria Active Problems: Insulin dependent diabetes mellitus Peripheral vascular disease Class 1 obesity with serious comorbidity in adult Essential hypertension GERD (gastroesophageal reflux disease) NSTEMI (non-ST elevated myocardial infarction) Acute decompensated heart failure Acute respiratory failure Bacteremia History of stroke Chronic pain Hypomagnesemia ASSESSMENT & PLAN Acute hypoxic respiratory failure secondary to systolic CHF exacerbation with most recent e jection fraction of 40% doing better Plan continue patient on Coreg, lisinopril changed to losartan, Lasix 40 mg IV twice daily Gross hematuria: Likely secondary to traumatic Miller resolved with continuous bladder irrig ation Plan hold heparin and aspirin today which can be restarted if no hematuria in next 24-hour Urology consulted Obstipation: Obtain abdominal x-ray and start on lactulose Elevated troponin thought to be secondary demand ischemia from CHF and anemia currently asy mptomatic chest pain-free Plan continue patient on aspirin, Coreg, atorvastatin and patient evaluated by cardiology erin singh recommend medical management only Hypertension highly elevated Plan increase to 12.5 mg twice daily, continue losartan and amlodipine gram added Diabetes mellitus type 2 with A1c of 7.8 suggest poorly controlled diabetes blood sugar sti ll running in 200s Plan increase Lantus to 30 units and continue insulin sliding scale Peripheral artery disease on aspirin, atorvastatin and vascular surgery on board Bilateral foot ulcer: Management per wound care and podiatry Recent history of streptococcal bacteremia who received 8 days of IV antibiotic at [facility] discharged home on on Augmentin readmitted on at [facility] and started on Rocephin after sending 2 set of blood cultures which remain negative. We will continue the patient on Rocephin IV while in the hospital then discharge home on Augmentin Anemia secondary to iron deficiency Plan continue on IV iron to, guaiac stools pending Hypomagnesemia repleted DVT prophylaxis on heparin currently on hold due to hematuria Ady Yin MD 04/08/2019 avage, Brayden Jennings MD - 04/08/2019 10:47 AM PSTFormatting of this note might be different from trina allne original. [facility] Service: Cardiology Progress Note Hospital Day: LOS: 2 days Post-Op Day: * No surgery found * SUBJECTIVE Patient Summary: 74 WM with anemia. Minimal elevation of troponin without symptoms of new cardiac issues. Events Overnight: Hematuria noted. Patient states he wants to go home today. OBJECTIVE Vital Signs: BP 147/70 | Pulse 74 | Temp 36.7 C (98 F) (Oral) | Resp 18 | Ht 1.778 m (5' 10") | Wt 109.3 kg (240 lb 14.4 oz) | SpO2 95% | BMI 34.57 kg/m Physical Exam GENERAL: Pleasant, talkative in no apparent distress CHEST: Good inspiratory effort with no crackles, ronchi, or wheezes. CARDIAC: No lifts/heaves. PMI is discrete and non-displaced. Normal S1 and S2. No murmur s, rubs or gallops. ABDOMEN: Soft, non-tender, nondistended with normal, active bowel sounds. Normal abdominal pulsation without bruit. EXTREMITIES: No clubbing, cyanosis, or edema. PULSES: Right: radial 2+, femoral 2+ DP 2+, PT 2+ Left: radial 2+, femoral 2+ DP 2+, PT 2+ DATA 1. Recent Labs Lab 04/08/19 0545 04/07/19 0502 04/06/19 0248 HGB 8.8* 9.2* 8.8* WBC 10.47 12.29* 13.24* ASSESSMENT & PLAN Cardiac status stable. Will sign off. G/U work up in progress. New Ruelas MD 04/08/2019 Nandini Barboza RN - 04/07/2019 10:48 PM [id number]: pt a/o to all, occasionally forgetful, vss. preval on boots in place bilat lower extremities, good cap refill, cool to touch. Lidocaine patch o n l side removed per orders. Assisting pt with turning in bed as pt allows. 2L NC O2, baseli ne reported. prevalon boots in place for wounds/skin integrity. 0100: pt sleeping well after pain managed with iv morphine. 0630: pt urine tinged pink, will pass onto day shift to discuss with hospitalist. 0700: aware, CBI to be initiated, day RN report completed. End of shift chart review complete Ady Hobbs MD - 04/07/2019 2:29 PM PST Hospitalist Progress Note Reagna Shepard 74 y.o. [id number] male Jamar Manuel MD Hospital Day: LOS: 1 day Patient Summary: 74-year-old gentleman with past medical history of bilateral nonheali ng diabetic foot ulcer, and history of traumatic brain injury, stroke, diabetes mellitus typ e 2 insulin-dependent who was recently admitted to [facility] from 03/28/21 020 with acute hypoxic respiratory failure secondary to systolic CHF exacerbation with eject ion fraction of 40%, CTA chest negative for PE, troponin was minimally elevated 0.44 treated conservatively with medical therapy discharge to [facility] who went back to [facility] emergency department with worsening shortness of breath secondary to acute hyp oxic respiratory failure from congestive heart failure, found to have elevated troponin of 0 .17, elevated BNP and required 2 to 3 L of oxygen to maintain oxygen saturation more than 90 %. Dr. New Ruelas was called who accepted the patient in transfer as a consultin g physician and hospitalist service called to admit the patient for further work-up and noe tment. Patient also found to have streptococcal agalactiae bacteremia thought to be seconda ry to nonhealing diabetic foot ulcer for which she was treated with 8 days of IV antibiotic then discharged home on oral Augmentin. Patient was evaluated by Dr. New Ruelas from cardiology who recommend medical ma nagement and work-up for anemia. Patient doing well on aspirin, metoprolol, lisinopril, sta tin. His anemia work-up showed profound iron deficiency started on IV iron, B12 folate with in normal limits. Streptococcal agalactiae bacteremia for which he was treated with IV antibiotic for 8 days discharged home on Augmentin and restarted on Rocephin 2 g IV daily on repeat blood cu lture from remain negative. Peripheral artery disease: Ultrasound vascular of lower extremity showed significant proxim al SFA stenosis. Monophasic waveform demonstrated in the runoff vessels in the calf no flow demonstrated distal posterior tibial artery Left lower extremity showed significant stenosis identified in the mid SFA and proximal pop liteal arteries. No flow demonstrated in the posterior tibial artery in the left cough. Vascular surgery on board Bilateral foot ulcer for which wound care and podiatry following the patient SUBJECTIVE and Events Overnight: Patient seen and examine. No acute over night event. She resting comfortably on the bed co mplaining of feeling weak otherwise shortness of breath is significantly better denied any d izziness no lightheadedness no nausea no vomiting no diarrhea no constipation Scheduled Medications aspirin 81 mg Oral Daily atorvaSTATin 10 mg Oral Nightly cadexomer iodine Topical Every Other Day cefTRIAXone 2 g Intravenous Daily DULoxetine 60 mg Oral Daily ferric gluconate 250 mg Intravenous Daily furosemide 40 mg Intravenous BID (8 and 16) gabapentin 300 mg Oral TID heparin 5,000 Units Subcutaneous 3 times per day [START ON 04/08/2019] insulin glargine 20 Units Subcutaneous QAM insulin glargine 5 Units Subcutaneous Once insulin lispro 0-12 Units Subcutaneous 4x Daily WC and HS lidocaine 1 patch Transdermal Daily lisinopril 10 mg Oral Daily magnesium oxide 400 mg Oral Daily metoprolol succinate 25 mg Oral Daily 27-0.8 mg multivitamin 1 tablet Oral Daily Continuous Infusions dextrose 10% PRN Medications acetaminophen, Hypoglycemia Management AND POCT Glucose AND dextrose AND dextro se 10%, morphine, ondansetron, oxyCODONE Allergy: No Known Allergies OBJECTIVE Vital Signs: BP 171/77 | Pulse 71 | Temp 36.7 C (98.1 F) (Oral) | Resp 20 | Ht 1.778 m (5' 10") | Wt 109.3 kg (240 lb 14.4 oz) | SpO2 98% | BMI 34.57 kg/m @VSRANGES2@ I&O Detailed Table: Intake/Output Summary (Last 24 hours) at 04/07/2019 1438 Last data filed at 04/07/2019 0601 Gross per 24 hour Intake 354 ml Output 1850 ml Net -1496 ml Hemodynamics Last 24hrs: Examination: Constitutional: Alert and oriented to person, place, and time. Cardiovascular: Normal rate, regular rhythm, normal heart sounds and intact distal pulses. Exam reveals no gallop and no friction rub. Pulmonary/Chest: Effort normal and breath sounds normal. No stridor. No respiratory distres s. no wheezes. no rales. exhibits no tenderness. Except bilateral crackles Abdominal: Soft. Bowel sounds are normal. exhibits no distension and no mass. There is no t enderness. There is no rebound and no guarding. Musculoskeletal: Normal range of motion.exhibits no tenderness. exhibits no edema. Neurological: Alert and oriented to person, place, and time. Has normal reflexes. display s normal reflexes. Skin: Multiple healing ulcers on lower extremities and is both foot ulcers with dressing in place Psychiatric: Has a normal mood and affect. Behavior is normal. Judgment fair Laboratory: Glucose: No results for input(s): GLUF in the last 72 hours. CBC: Lab Results Component Value Date WBC 12.29 (H) 04/07/2019 RBC 4.48 04/07/2019 RBC 5.12 08/21/2018 HGB 9.2 (L) 04/07/2019 HCT 30.2 (L) 04/07/2019 MCV 67.4 (L) 04/07/2019 MCH 20.5 (L) 04/07/2019 MCHC 30.3 (L) 04/07/2019 PLT 398 04/07/2019 MPV 7.8 04/07/2019 DIFFTYPE MANUAL 04/06/2019 CMP: Lab Results Component Value Date NA 134 (L) 04/07/2019 K 4.6 04/07/2019 CL 98 (L) 04/07/2019 CO2 36 (H) 04/07/2019 ANIONGAP 5 04/07/2019 GLUF 197 (A) 08/21/2018 BUN 21 04/07/2019 GLOB 3.2 08/21/2018 AGRATIO 0.4 (L) 04/07/2019 BILITOT 0.5 08/21/2018 AST 25 04/07/2019 ALT 25 04/07/2019 EGFR >60 04/07/2019 Magnesium: Lab Results Component Value Date MG 1.4 (L) 04/06/2019 Phosphorus: No results found for: PHOS PT/INR: Lab Results Component Value Date INR 1.2 04/06/2019 Last 3 Troponin: No components found for: TROPONINI ABG: No results found for: POCTEMP, POCFIO2, POCPO2, BEART @RISRESULT@ PROBLEM LIST Principal Problem: Acute decompensated heart failure Active Problems: Insulin dependent diabetes mellitus Peripheral vascular disease Class 1 obesity with serious comorbidity in adult Essential hypertension GERD (gastroesophageal reflux disease) NSTEMI (non-ST elevated myocardial infarction) Acute respiratory failure Bacteremia History of stroke Chronic pain Hypomagnesemia ASSESSMENT & PLAN Acute hypoxic respiratory failure secondary to systolic CHF exacerbation with most recent e jection fraction of 40% doing better Plan continue patient on Coreg, lisinopril, Lasix 40 mg IV twice daily Elevated troponin thought to be secondary demand ischemia from CHF and anemia currently asy mptomatic chest pain-free Plan continue patient on aspirin, Coreg, atorvastatin and patient evaluated by cardiology w francisco recommend medical management only Hypertension uncontrolled Plan change metoprolol to Coreg, continue lisinopril and amlodipine Diabetes mellitus type 2 with A1c of 7.8 suggest poorly controlled diabetes Plan increase Lantus to 20 units and continue insulin sliding scale Peripheral artery disease on aspirin, atorvastatin and vascular surgery on board Bilateral foot ulcer: Management per wound care and podiatry Recent history of streptococcal bacteremia who received 8 days of IV antibiotic at [facility] discharged home on on Augmentin readmitted on at [facility] and started on Rocephin after sending 2 set of blood cultures which remain negative. We will continue the patient on Rocephin IV while in the hospital then discharge home on Augmentin Anemia secondary to iron deficiency Plan start the patient on IV iron, guaiac stools pending Hypomagnesemia repleted DVT prophylaxis on heparin Ady Yin MD 04/07/2019 Brayedn Ashley MD - 04/07/2019 11:06 AM PSTFormatting of this note might be different from trina allen original. [facility] Service: Cardiology Progress Note Hospital Day: LOS: 1 day Post-Op Day: * No surgery found * SUBJECTIVE Patient Summary: 74 WM with anemia. Minimal elevation of troponin without symptoms of new cardiac issues. Events Overnight: None. Patient states he wants to go home today. OBJECTIVE Vital Signs: BP 157/70 | Pulse 72 | Temp 36.7 C (98.1 F) (Oral) | Resp 20 | Ht 1.778 m (5' 10") | Wt 109.3 kg (240 lb 14.4 oz) | SpO2 98% | BMI 34.57 kg/m Physical Exam GENERAL: Pleasant, talkative in no apparent distress CHEST: Good inspiratory effort with no crackles, ronchi, or wheezes. CARDIAC: Unremarkable auscultation. DATA 1. Recent Labs Lab 04/07/19 0502 04/06/19 0248 HGB 9.2* 8.8* WBC 12.29* 13.24* ASSESSMENT & PLAN Hgb up slightly work up in progress. Troponins remain flat and unimpressive. New Ruelas MD 04/07/2019 Andrés Novoa RN - 04/06/2019 10:15 AM [facility] Service: Wound/Ostomy Care Progress Note Wound care stopped by for evaluation of bilateral feet. Floor RN requested we come back steffany adele due to patient's health status. Thank you for allowing me to participate in the care of this patient. I will continue to follow with you. Please call if there are any additional questions. Blanquita Nieves RN 04/06/19 10:16 AM Jessica Uriarte, PT - 04/06/2019 7:58 AM PSTMISSED THERAPY VISIT Physical Therapy attempted to see the following patient today: Reagan Shepard Missed Visit (treatment on hold) Pt admitted early this morning with elevated troponin. Pt awaiting cardiology and likely ca th per H&P. Hold P.T. for today to allow for further workup. documented in this e ncounter Plan of Treatment + +---------+--------+ + + | Name | Type | Priori | Associated Diagnoses | Date/Time | | | | ty | | | + +---------+--------+ + + | STORED IMAGE UROLOGY | Imaging | Routin | | 04/10/2019 7:04 PM | | | | e | | PST | + +---------+--------+ + + + +---------+--------+ + + | Name | Type | Priori | Associated Diagnoses | Order Schedule | | | | ty | | | + +---------+--------+ + + | STORED IMAGE UROLOGY | Imaging | Routin | | One time imaging One | | | | e | | time imaging for 1 | | | | | | Occurrences starting | | | | | | 04/10/2019 until | | | | | | 04/10/2019 | + +---------+--------+ + + | CBC with | Lab | Routin | Other | Weekly for 6 | | Differential | | e | osteomyelitis of | Occurrences starting | | | | | right foot (HCC) | 04/20/2019 until | | | | | | 04/20/2020 | + +---------+--------+ + + | Comprehensive | Lab | Routin | Other | Weekly for 2 | | Metabolic Panel | | e | osteomyelitis of | Occurrences starting | | | | | right foot ([facility]) | 04/20/2019 until | | | | | | 04/20/2020 | + +---------+--------+ + + | C-Reactive Protein | Lab | Routin | Other | Weekly for 6 | | | | e | osteomyelitis of | Occurrences starting | | | | | right foot ([facility]) | 04/20/2019 until | | | | | | 04/20/2020 | + +---------+--------+ + + | Sedimentation Rate | Lab | Routin | Other | Weekly for 6 | | | | e | osteomyelitis of | Occurrences starting | | | | | right foot ([facility]) | 04/20/2019 until | | | | | | 04/20/2020 | + +---------+--------+ + + documented as of this encounter Procedures + +--------+ + + + | Procedure Name | Priori | Date/Time | Associated Diagnosis | Comments | | | ty | | | | + +--------+ + + + | RENAL FUNCTION PANEL | STAT | 04/21/2019 | | Results for this | | | | 11:59 AM | | procedure are in the | | | | PST | | results section. | + +--------+ + + + | POC GLUCOSE (NON | Routin | 04/21/2019 | | Results for this | | ORD) | e | 11:54 AM | | procedure are in the | | | | PST | | results section. | + +--------+ + + + | POC GLUCOSE (NON | Routin | 04/21/2019 | | Results for this | | ORD) | e | 8:10 AM | | procedure are in the | | | | PST | | results section. | + +--------+ + + + | POC GLUCOSE (NON | Routin | 04/21/2019 | | Results for this | | ORD) | e | 5:12 AM | | procedure are in the | | | | PST | | results section. | + +--------+ + + + | POC GLUCOSE (NON | Routin | 04/20/2019 | | Results for this | | ORD) | e | 9:08 PM | | procedure are in the | | | | PST | | results section. | + +--------+ + + + | POC GLUCOSE (NON | Routin | 04/20/2019 | | Results for this | | ORD) | e | 5:30 PM | | procedure are in the | | | | PST | | results section. | + +--------+ + + + | POC GLUCOSE (NON | Routin | 04/20/2019 | | Results for this | | ORD) | e | 5:04 PM | | procedure are in the | | | | PST | | results section. | + +--------+ + + + | POC GLUCOSE (NON | Routin | 04/20/2019 | | Results for this | | ORD) | e | 12:44 PM | | procedure are in the | | | | PST | | results section. | + +--------+ + + + | VANCOMYCIN LEVEL | [facility] | 04/20/2019 | | Results for this | | | | 12:39 PM | | procedure are in the | | | | PST | | results section. | + +--------+ + + + | POC GLUCOSE (NON | Routin | 04/20/2019 | | Results for this | | ORD) | e | 8:58 AM | | procedure are in the | | | | PST | | results section. | + +--------+ + + + | POC GLUCOSE (NON | Routin | 04/20/2019 | | Results for this | | ORD) | e | 8:16 AM | | procedure are in the | | | | PST | | results section. | + +--------+ + + + | POC GLUCOSE (NON | Routin | 04/19/2019 | | Results for this | | ORD) | e | 9:07 PM | | procedure are in the | | | | PST | | results section. | + +--------+ + + + | POC GLUCOSE (NON | Routin | 04/19/2019 | | Results for this | | ORD) | e | 6:12 PM | | procedure are in the | | | | PST | | results section. | + +--------+ + + + | POC GLUCOSE (NON | Routin | 04/19/2019 | | Results for this | | ORD) | e | 12:44 PM | | procedure are in the | | | | PST | | results section. | + +--------+ + + + | POC GLUCOSE (NON | Routin | 04/19/2019 | | Results for this | | ORD) | e | 8:13 AM | | procedure are in the | | | | PST | | results section. | + +--------+ + + + | CBC WITH | Routin | 04/19/2019 | | Results for this | | DIFFERENTIAL | e | 5:27 AM | | procedure are in the | | | | PST | | results section. | + +--------+ + + + | BASIC METABOLIC | Routin | 04/19/2019 | | Results for this | | PANEL | e | 5:27 AM | | procedure are in the | | | | PST | | results section. | + +--------+ + + + | POC GLUCOSE (NON | Routin | 04/19/2019 | | Results for this | | ORD) | e | 4:11 AM | | procedure are in the | | | | PST | | results section. | + +--------+ + + + | POC GLUCOSE (NON | Routin | 04/18/2019 | | Results for this | | ORD) | e | 9:02 PM | | procedure are in the | | | | PST | | results section. | + +--------+ + + + | POC GLUCOSE (NON | Routin | 04/18/2019 | | Results for this | | ORD) | e | 8:01 PM | | procedure are in the | | | | PST | | results section. | + +--------+ + + + | POC GLUCOSE (NON | Routin | 04/18/2019 | | Results for this | | ORD) | e | 6:08 PM | | procedure are in the | | | | PST | | results section. | + +--------+ + + + | POC GLUCOSE (NON | Routin | 04/18/2019 | | Results for this | | ORD) | e | 3:27 PM | | procedure are in the | | | | PST | | results section. | + +--------+ + + + | NM NUCLEAR STRESS | Routin | 04/18/2019 | | Results for this | | TEST (PHARMACOLOGIC | e | 3:20 PM | | procedure are in the | | - VASODILATOR) | | PST | | results section. | + +--------+ + + + | BYPASS GRAFT | | 04/18/2019 | Peripheral | | | FEMORAL-TIBIAL | | 12:18 PM | vascular disease | | | | | PST | (HCC) | | + +--------+ + + + +---+--------+ | | | | | Specia | | | l | | | Needs | | | Cryo | | | vein(R | | | achel | | | gave | | | detail | | | s | | | direct | | | ly to | | | the | | | Rep.) | | | pt in | | | rm | | | 4452-1 | +---+--------+ + +--------+ + + + | POC GLUCOSE (NON | Routin | 04/18/2019 | | Results for this | | ORD) | e | 8:15 AM | | procedure are in the | | | | PST | | results section. | + +--------+ + + + | CBC WITH | Routin | 04/18/2019 | | Results for this | | DIFFERENTIAL | e | 3:56 AM | | procedure are in the | | | | PST | | results section. | + +--------+ + + + | BASIC METABOLIC | Routin | 04/18/2019 | | Results for this | | PANEL | e | 3:56 AM | | procedure are in the | | | | PST | | results section. | + +--------+ + + + | POC GLUCOSE (NON | Routin | 04/17/2019 | | Results for this | | ORD) | e | 8:41 PM | | procedure are in the | | | | PST | | results section. | + +--------+ + + + | POC GLUCOSE (NON | Routin | 04/17/2019 | | Results for this | | ORD) | e | 4:24 PM | | procedure are in the | | | | PST | | results section. | + +--------+ + + + | VANCOMYCINEDDIE | [facility] | 04/17/2019 | | Results for this | | | | 12:30 PM | | procedure are in the | | | | PST | | results section. | + +--------+ + + + | POC GLUCOSE (NON | Routin | 04/17/2019 | | Results for this | | ORD) | e | 12:05 PM | | procedure are in the | | | | PST | | results section. | + +--------+ + + + | POC GLUCOSE (NON | Routin | 04/17/2019 | | Results for this | | ORD) | e | 10:11 AM | | procedure are in the | | | | PST | | results section. | + +--------+ + + + | POC GLUCOSE (NON | Routin | 04/17/2019 | | Results for this | | ORD) | e | 7:54 AM | | procedure are in the | | | | PST | | results section. | + +--------+ + + + | CBC WITH | Routin | 04/17/2019 | | Results for this | | DIFFERENTIAL | e | 5:20 AM | | procedure are in the | | | | PST | | results section. | + +--------+ + + + | BASIC METABOLIC | Routin | 04/17/2019 | | Results for this | | PANEL | e | 5:20 AM | | procedure are in the | | | | PST | | results section. | + +--------+ + + + | TRANSFUSE 1 UNIT RED | Routin | 04/16/2019 | | | | BLOOD CELLS | e | 11:08 PM | | | | | | PST | | | + +--------+ + + + | POC GLUCOSE (NON | Routin | 04/16/2019 | | Results for this | | ORD) | e | 8:57 PM | | procedure are in the | | | | PST | | results section. | + +--------+ + + + | POC GLUCOSE (NON | Routin | 04/16/2019 | | Results for this | | ORD) | e | 4:39 PM | | procedure are in the | | | | PST | | results section. | + +--------+ + + + | POC GLUCOSE (NON | Routin | 04/16/2019 | | Results for this | | ORD) | e | 1:15 PM | | procedure are in the | | | | PST | | results section. | + +--------+ + + + | POC GLUCOSE (NON | Routin | 04/16/2019 | | Results for this | | ORD) | e | 7:36 AM | | procedure are in the | | | | PST | | results section. | + +--------+ + + + | CBC WITH | Routin | 04/16/2019 | | Results for this | | DIFFERENTIAL | e | 5:36 AM | | procedure are in the | | | | PST | | results section. | + +--------+ + + + | BASIC METABOLIC | Routin | 04/16/2019 | | Results for this | | PANEL | e | 5:36 AM | | procedure are in the | | | | PST | | results section. | + +--------+ + + + | TRANSFUSE 2 UNITS | Routin | 04/16/2019 | | | | RED BLOOD CELLS | e | 12:22 AM | | | | | | PST | | | + +--------+ + + + | POC GLUCOSE (NON | Routin | 04/15/2019 | | Results for this | | ORD) | e | 9:03 PM | | procedure are in the | | | | PST | | results section. | + +--------+ + + + | TRANSFUSE 2 UNITS | Routin | 04/15/2019 | | | | RED BLOOD CELLS | e | 8:59 PM | | | | | | PST | | | + +--------+ + + + | POC GLUCOSE (NON | Routin | 04/15/2019 | | Results for this | | ORD) | e | 4:51 PM | | procedure are in the | | | | PST | | results section. | + +--------+ + + + | POC GLUCOSE (NON | Routin | 04/15/2019 | | Results for this | | ORD) | e | 1:19 PM | | procedure are in the | | | | PST | | results section. | + +--------+ + + + | TYPE AND SCREEN | [facility] | 04/15/2019 | | Results for this | | | | 1:15 PM | | procedure are in the | | | | PST | | results section. | + +--------+ + + + | PRODUCT: RBC | [facility] | 04/15/2019 | | Results for this | | | | 1:14 PM | | procedure are in the | | | | PST | | results section. | + +--------+ + + + | POC GLUCOSE (NON | Routin | 04/15/2019 | | Results for this | | ORD) | e | 9:11 AM | | procedure are in the | | | | PST | | results section. | + +--------+ + + + | VANCOMYCIN, TROUGH | [facility] | 04/15/2019 | | Results for this | | | | 7:52 AM | | procedure are in the | | | | PST | | results section. | + +--------+ + + + | CBC WITH | Routin | 04/15/2019 | | Results for this | | DIFFERENTIAL | e | 6:36 AM | | procedure are in the | | | | PST | | results section. | + +--------+ + + + | BASIC METABOLIC | Routin | 04/15/2019 | | Results for this | | PANEL | e | 6:36 AM | | procedure are in the | | | | PST | | results section. | + +--------+ + + + | POC GLUCOSE (NON | Routin | 04/14/2019 | | Results for this | | ORD) | e | 8:15 PM | | procedure are in the | | | | PST | | results section. | + +--------+ + + + | POC GLUCOSE (NON | Routin | 04/14/2019 | | Results for this | | ORD) | e | 4:58 PM | | procedure are in the | | | | PST | | results section. | + +--------+ + + + | POC GLUCOSE (NON | Routin | 04/14/2019 | | Results for this | | ORD) | e | 11:43 AM | | procedure are in the | | | | PST | | results section. | + +--------+ + + + | ECHO COMPLETE W | Routin | 04/14/2019 | | Results for this | | CONTRAST | e | 11:21 AM | | procedure are in the | | | | PST | | results section. | + +--------+ + + + | POC GLUCOSE (NON | Routin | 04/14/2019 | | Results for this | | ORD) | e | 7:57 AM | | procedure are in the | | | | PST | | results section. | + +--------+ + + + | TROPONIN I | Timed | 04/14/2019 | | Results for this | | | | 6:29 AM | | procedure are in the | | | | PST | | results section. | + +--------+ + + + | CBC WITH | Routin | 04/14/2019 | | Results for this | | DIFFERENTIAL | e | 6:29 AM | | procedure are in the | | | | PST | | results section. | + +--------+ + + + | B TYPE NATRIURETIC | Routin | 04/14/2019 | | Results for this | | PEPTIDE | e | 6:29 AM | | procedure are in the | | | | PST | | results section. | + +--------+ + + + | BASIC METABOLIC | Routin | 04/14/2019 | | Results for this | | PANEL | e | 5:09 AM | | procedure are in the | | | | PST | | results section. | + +--------+ + + + | VANCOMYCIN LEVEL | [facility] | 04/14/2019 | | Results for this | | | | 4:53 AM | | procedure are in the | | | | PST | | results section. | + +--------+ + + + | POC GLUCOSE (NON | Routin | 04/14/2019 | | Results for this | | ORD) | e | 1:46 AM | | procedure are in the | | | | PST | | results section. | + +--------+ + + + | TROPONIN I | Timed | 04/14/2019 | | Results for this | | | | 1:19 AM | | procedure are in the | | | | PST | | results section. | + +--------+ + + + | ECG 12 LEAD | STAT | 04/14/2019 | | Results for this | | | | 12:12 AM | | procedure are in the | | | | PST | | results section. | + +--------+ + + + | POC GLUCOSE (NON | Routin | 04/13/2019 | | Results for this | | ORD) | e | 9:16 PM | | procedure are in the | | | | PST | | results section. | + +--------+ + + + | POC GLUCOSE (NON | Routin | 04/13/2019 | | Results for this | | ORD) | e | 4:19 PM | | procedure are in the | | | | PST | | results section. | + +--------+ + + + | XR CHEST AP PORTABLE | [facility] | 04/13/2019 | | Results for this | | | | 3:50 PM | | procedure are in the | | | | PST | | results section. | + +--------+ + + + | IR ANGIOGRAM LOWER | Routin | 04/13/2019 | | Results for this | | EXTREMITY RIGHT | e | 3:14 PM | | procedure are in the | | | | PST | | results section. | + +--------+ + + + | POC GLUCOSE (NON | Routin | 04/13/2019 | | Results for this | | ORD) | e | 11:49 AM | | procedure are in the | | | | PST | | results section. | + +--------+ + + + | POC GLUCOSE (NON | Routin | 04/13/2019 | | Results for this | | ORD) | e | 7:59 AM | | procedure are in the | | | | PST | | results section. | + +--------+ + + + | CBC WITH | Routin | 04/13/2019 | | Results for this | | DIFFERENTIAL | e | 6:38 AM | | procedure are in the | | | | PST | | results section. | + +--------+ + + + | BASIC METABOLIC | Routin | 04/13/2019 | | Results for this | | PANEL | e | 6:38 AM | | procedure are in the | | | | PST | | results section. | + +--------+ + + + | POC GLUCOSE (NON | Routin | 04/13/2019 | | Results for this | | ORD) | e | 3:30 AM | | procedure are in the | | | | PST | | results section. | + +--------+ + + + | POC GLUCOSE (NON | Routin | 04/12/2019 | | Results for this | | ORD) | e | 9:14 PM | | procedure are in the | | | | PST | | results section. | + +--------+ + + + | POC GLUCOSE (NON | Routin | 04/12/2019 | | Results for this | | ORD) | e | 4:28 PM | | procedure are in the | | | | PST | | results section. | + +--------+ + + + | POC GLUCOSE (NON | Routin | 04/12/2019 | | Results for this | | ORD) | e | 11:53 AM | | procedure are in the | | | | PST | | results section. | + +--------+ + + + | POC GLUCOSE (NON | Routin | 04/12/2019 | | Results for this | | ORD) | e | 7:56 AM | | procedure are in the | | | | PST | | results section. | + +--------+ + + + | CBC WITH | Routin | 04/12/2019 | | Results for this | | DIFFERENTIAL | e | 6:20 AM | | procedure are in the | | | | PST | | results section. | + +--------+ + + + | BASIC METABOLIC | Routin | 04/12/2019 | | Results for this | | PANEL | e | 6:20 AM | | procedure are in the | | | | PST | | results section. | + +--------+ + + + | POC GLUCOSE (NON | Routin | 04/11/2019 | | Results for this | | ORD) | e | 9:20 PM | | procedure are in the | | | | PST | | results section. | + +--------+ + + + | POC GLUCOSE (NON | Routin | 04/11/2019 | | Results for this | | ORD) | e | 6:01 PM | | procedure are in the | | | | PST | | results section. | + +--------+ + + + | POC GLUCOSE (NON | Routin | 04/11/2019 | | Results for this | | ORD) | e | 3:22 PM | | procedure are in the | | | | PST | | results section. | + +--------+ + + + | IR ANGIOGRAM LOWER | Routin | 04/11/2019 | | Results for this | | EXTREMITY LEFT | e | 1:58 PM | | procedure are in the | | | | PST | | results section. | + +--------+ + + + | POC GLUCOSE (NON | Routin | 04/11/2019 | | Results for this | | ORD) | e | 8:29 AM | | procedure are in the | | | | PST | | results section. | + +--------+ + + + | CBC WITH | Routin | 04/11/2019 | | Results for this | | DIFFERENTIAL | e | 5:48 AM | | procedure are in the | | | | PST | | results section. | + +--------+ + + + | B TYPE NATRIURETIC | Add-On | 04/11/2019 | | Results for this | | PEPTIDE | | 5:48 AM | | procedure are in the | | | | PST | | results section. | + +--------+ + + + | BASIC METABOLIC | Routin | 04/11/2019 | | Results for this | | PANEL | e | 5:48 AM | | procedure are in the | | | | PST | | results section. | + +--------+ + + + | POC GLUCOSE (NON | Routin | 04/10/2019 | | Results for this | | ORD) | e | 9:22 PM | | procedure are in the | | | | PST | | results section. | + +--------+ + + + | CYSTOSCOPY | | 04/10/2019 | Insulin dependent | | | | | 6:15 PM | diabetes mellitus | | | | | PST | ([facility]) Peripheral | | | | | | vascular disease | | | | | | ([facility]) Other | | | | | | osteomyelitis of | | | | | | right foot ([facility]) | | | | | | Essential | | | | | | hypertension Acute | | | | | | left hemiparesis | | | | | | ([facility]) | | + +--------+ + + + | POC GLUCOSE (NON | Routin | 04/10/2019 | | Results for this | | ORD) | e | 2:33 PM | | procedure are in the | | | | PST | | results section. | + +--------+ + + + | US RENAL COMPLETE | Routin | 04/10/2019 | | Results for this | | | e | 11:21 AM | | procedure are in the | | | | PST | | results section. | + +--------+ + + + | POC GLUCOSE (NON | Routin | 04/10/2019 | | Results for this | | ORD) | e | 7:31 AM | | procedure are in the | | | | PST | | results section. | + +--------+ + + + | CBC NO DIFFERENTIAL | Routin | 04/10/2019 | | Results for this | | | e | 5:25 AM | | procedure are in the | | | | PST | | results section. | + +--------+ + + + | POC GLUCOSE (NON | Routin | 04/09/2019 | | Results for this | | ORD) | e | 9:57 PM | | procedure are in the | | | | PST | | results section. | + +--------+ + + + | POC GLUCOSE (NON | Routin | 04/09/2019 | | Results for this | | ORD) | e | 5:06 PM | | procedure are in the | | | | PST | | results section. | + +--------+ + + + | POC GLUCOSE (NON | Routin | 04/09/2019 | | Results for this | | ORD) | e | 12:42 PM | | procedure are in the | | | | PST | | results section. | + +--------+ + + + | XR CHEST AP PORTABLE | Routin | 04/09/2019 | | Results for this | | | e | 9:02 AM | | procedure are in the | | | | PST | | results section. | + +--------+ + + + | URINALYSIS, REFLEX | Routin | 04/09/2019 | | Results for this | | MICROSCOPIC AND/OR | e | 8:48 AM | | procedure are in the | | CULTURE | | PST | | results section. | + +--------+ + + + | URINALYSIS, | Routin | 04/09/2019 | | Results for this | | MICROSCOPIC ONLY | e | 8:48 AM | | procedure are in the | | | | PST | | results section. | + +--------+ + + + | SEDIMENTATION RATE | Add-On | 04/09/2019 | | Results for this | | | | 6:16 AM | | procedure are in the | | | | PST | | results section. | + +--------+ + + + | CBC NO DIFFERENTIAL | Routin | 04/09/2019 | | Results for this | | | e | 6:16 AM | | procedure are in the | | | | PST | | results section. | + +--------+ + + + | COMPREHENSIVE | Routin | 04/09/2019 | | Results for this | | METABOLIC PANEL | e | 6:16 AM | | procedure are in the | | | | PST | | results section. | + +--------+ + + + | POC GLUCOSE (NON | Routin | 04/08/2019 | | Results for this | | ORD) | e | 10:09 PM | | procedure are in the | | | | PST | | results section. | + +--------+ + + + | HC OCCULT BLD FECES | Routin | 04/08/2019 | | Results for this | | 1-3 TESTS | e | 7:27 PM | | procedure are in the | | | | PST | | results section. | + +--------+ + + + | POC GLUCOSE (NON | Routin | 04/08/2019 | | Results for this | | ORD) | e | 6:34 PM | | procedure are in the | | | | PST | | results section. | + +--------+ + + + | XR ABDOMEN AP | Routin | 04/08/2019 | | Results for this | | | e | 2:41 PM | | procedure are in the | | | | PST | | results section. | + +--------+ + + + | POC GLUCOSE (NON | Routin | 04/08/2019 | | Results for this | | ORD) | e | 11:25 AM | | procedure are in the | | | | PST | | results section. | + +--------+ + + + | XR CHEST AP PORTABLE | Routin | 04/08/2019 | | Results for this | | | e | 9:25 AM | | procedure are in the | | | | PST | | results section. | + +--------+ + + + | POC GLUCOSE (NON | Routin | 04/08/2019 | | Results for this | | ORD) | e | 6:32 AM | | procedure are in the | | | | PST | | results section. | + +--------+ + + + | CBC NO DIFFERENTIAL | Routin | 04/08/2019 | | Results for this | | | e | 5:45 AM | | procedure are in the | | | | PST | | results section. | + +--------+ + + + | B TYPE NATRIURETIC | Add-On | 04/08/2019 | | Results for this | | PEPTIDE | | 5:45 AM | | procedure are in the | | | | PST | | results section. | + +--------+ + + + | COMPREHENSIVE | Routin | 04/08/2019 | | Results for this | | METABOLIC PANEL | e | 5:45 AM | | procedure are in the | | | | PST | | results section. | + +--------+ + + + | POC GLUCOSE (NON | Routin | 04/07/2019 | | Results for this | | ORD) | e | 8:36 PM | | procedure are in the | | | | PST | | results section. | + +--------+ + + + | POC GLUCOSE (NON | Routin | 04/07/2019 | | Results for this | | ORD) | e | 4:25 PM | | procedure are in the | | | | PST | | results section. | + +--------+ + + + | POC GLUCOSE (NON | Routin | 04/07/2019 | | Results for this | | ORD) | e | 12:40 PM | | procedure are in the | | | | PST | | results section. | + +--------+ + + + | XR FOOT RIGHT 3 + VW | Routin | 04/07/2019 | | Results for this | | | e | 11:05 AM | | procedure are in the | | | | PST | | results section. | + +--------+ + + + | XR FOOT LEFT 3 + VW | Routin | 04/07/2019 | | Results for this | | | e | 11:04 AM | | procedure are in the | | | | PST | | results section. | + +--------+ + + + | POC GLUCOSE (NON | Routin | 04/07/2019 | | Results for this | | ORD) | e | 8:49 AM | | procedure are in the | | | | PST | | results section. | + +--------+ + + + | CBC NO DIFFERENTIAL | Routin | 04/07/2019 | | Results for this | | | e | 5:02 AM | | procedure are in the | | | | PST | | results section. | + +--------+ + + + | MAGNESIUM | Add-On | 04/07/2019 | | Results for this | | | | 5:02 AM | | procedure are in the | | | | PST | | results section. | + +--------+ + + + | IRON, TOTAL | Add-On | 04/07/2019 | | Results for this | | | | 5:02 AM | | procedure are in the | | | | PST | | results section. | + +--------+ + + + | COMPREHENSIVE | Routin | 04/07/2019 | | Results for this | | METABOLIC PANEL | e | 5:02 AM | | procedure are in the | | | | PST | | results section. | + +--------+ + + + | POC GLUCOSE (NON | Routin | 04/06/2019 | | Results for this | | ORD) | e | 8:54 PM | | procedure are in the | | | | PST | | results section. | + +--------+ + + + | POC GLUCOSE (NON | Routin | 04/06/2019 | | Results for this | | ORD) | e | 4:29 PM | | procedure are in the | | | | PST | | results section. | + +--------+ + + + | HC BACTERIAL CULTURE | Routin | 04/06/2019 | | Results for this | | - OTHR SOURCE | e | 3:46 PM | | procedure are in the | | | | PST | | results section. | + +--------+ + + + | HC BACTERIAL CULTURE | Routin | 04/06/2019 | | Results for this | | - OTHR SOURCE | e | 3:46 PM | | procedure are in the | | | | PST | | results section. | + +--------+ + + + | HC VITAMIN B-12 | Add-On | 04/06/2019 | | Results for this | | | | 2:30 PM | | procedure are in the | | | | PST | | results section. | + +--------+ + + + | TROPONIN I | STAT | 04/06/2019 | | Results for this | | | | 2:30 PM | | procedure are in the | | | | PST | | results section. | + +--------+ + + + | FERRITIN | Add-On | 04/06/2019 | | Results for this | | | | 2:30 PM | | procedure are in the | | | | PST | | results section. | + +--------+ + + + | POC GLUCOSE (NON | Routin | 04/06/2019 | | Results for this | | ORD) | e | 11:28 AM | | procedure are in the | | | | PST | | results section. | + +--------+ + + + | VAS LOWER EXTREMITY | Routin | 04/06/2019 | | Results for this | | ARTERIES BILATERAL | e | 11:01 AM | | procedure are in the | | | | PST | | results section. | + +--------+ + + + | POC GLUCOSE (NON | Routin | 04/06/2019 | | Results for this | | ORD) | e | 9:10 AM | | procedure are in the | | | | PST | | results section. | + +--------+ + + + | TROPONIN I | STAT | 04/06/2019 | | Results for this | | | | 8:31 AM | | procedure are in the | | | | PST | | results section. | + +--------+ + + + | XR CHEST AP PORTABLE | Routin | 04/06/2019 | | Results for this | | | e | 5:20 AM | | procedure are in the | | | | PST | | results section. | + +--------+ + + + | CULTURE, BLOOD | STAT | 04/06/2019 | | Results for this | | | | 3:38 AM | | procedure are in the | | | | PST | | results section. | + +--------+ + + + | CULTURE, BLOOD | STAT | 04/06/2019 | | Results for this | | | | 3:31 AM | | procedure are in the | | | | PST | | results section. | + +--------+ + + + | LIPID PANEL | Routin | 04/06/2019 | | Results for this | | | e | 2:48 AM | | procedure are in the | | | | PST | | results section. | + +--------+ + + + | TROPONIN I | STAT | 04/06/2019 | | Results for this | | | | 2:48 AM | | procedure are in the | | | | PST | | results section. | + +--------+ + + + | PTT | STAT | 04/06/2019 | | Results for this | | | | 2:48 AM | | procedure are in the | | | | PST | | results section. | + +--------+ + + + | PROTIME INR | STAT | 04/06/2019 | | Results for this | | | | 2:48 AM | | procedure are in the | | | | PST | | results section. | + +--------+ + + + | CBC WITH | Routin | 04/06/2019 | | Results for this | | DIFFERENTIAL | e | 2:48 AM | | procedure are in the | | | | PST | | results section. | + +--------+ + + + | B TYPE NATRIURETIC | Routin | 04/06/2019 | | Results for this | | PEPTIDE | e | 2:48 AM | | procedure are in the | | | | PST | | results section. | + +--------+ + + + | MAGNESIUM | Routin | 04/06/2019 | | Results for this | | | e | 2:48 AM | | procedure are in the | | | | PST | | results section. | + +--------+ + + + | HEMOGLOBIN A1C | Routin | 04/06/2019 | | Results for this | | | e | 2:48 AM | | procedure are in the | | | | PST | | results section. | + +--------+ + + + | COMPREHENSIVE | Routin | 04/06/2019 | | Results for this | | METABOLIC PANEL | e | 2:48 AM | | procedure are in the | | | | PST | | results section. | + +--------+ + + + documented in this encounter Results Renal Function Panel (04/21/2019 11:59 AM PST) + + + + + + | Component | Value | Ref Range | Performed | Pathologist | | | | | At | Signature | + + + + + + | Na | 135 | 135 - 145 | [facility] | | | | | mmol/L | LABORATORY | | + + + + + + | K | 4.2 | 3.5 - 4.9 | [facility] | | | | | mmol/L | LABORATORY | | + + + + + + | Cl | 100 | 99 - 109 mmol/L | [facility] | | | | | | LABORATORY | | + + + + + + | CO2 | 29 | 23 - 32 mmol/L | [facility] | | | | | | LABORATORY | | + + + + + + | Anion Gap | 10 | 5 - 20 mmol/L | [facility] | | | | | | LABORATORY | | + + + + + + | Glucose | 156 (H) | 65 - 99 mg/dL | [facility] | | | | | | LABORATORY | | + + + + + + | BUN | 20 | 8 - 25 mg/dL | [facility] | | | | | | LABORATORY | | + + + + + + | Creatinine | 0.84 | 0.70 - 1.30 | [facility] | | | | | mg/dL | LABORATORY | | + + + + + + | Calcium | 8.1 (L) | 8.5 - 10.5 | [facility] | | | | | mg/dL | LABORATORY | | + + + + + + | Albumin | 3.0 (L) | 3.3 - 4.8 g/dL | [facility] | | | | | | LABORATORY | | + + + + + + | Phosphorus | 3.6 | 2.3 - 4.8 mg/dL | [facility] | | | | | [facility]AT[facility] | | + + + + + + | Estimated | >60Comment: GFR <60: | >60 | [facility] | | | GFR | CHRONIC KIDNEY DISEASE, | mL/min/1.73m2 | LABORATORY | | | | IF FOUND OVER A 3 MONTH | | | | | | PERIOD.GFR <15: KIDNEY | | | | | | FAILURE.FOR | | | | | | AMERICANS, MULTIPLY THE | | | | | | CALCULATED GFR BY | | | | | | 1.210.This eGFR is | | | | | | calculated using the | | | | | | MDRD [facility] traceable | | | | | | equation.Testing | | | | | | performed at [facility] | | | | | | [facility];[place], [place] | | | | | | [address] | | | | + + + + + + + + | Specimen | + + | Blood | + + + + + + + | Performing | Address | City/State/Zipcode | Phone Number | | Organization | | | | + + + + + | [facility] | [address] | [place] [address] | [phone] | + + + + + POC Glucose (04/21/2019 11:54 AM PST) + + + + + + | Component | Value | Ref Range | Performed | Pathologist | | | | | At | Signature | + + + + + + | Glucose, | 164 (H)Comment: Testing | 65 - 99 mg/dL | [facility] | | | POC | performed at [facility];[address] | | LABORATORY | | | | [address];[place], [place] | | | | | | [address] | | | | + + + + + + + + | Specimen | + + | | + + + + + + + | Performing | Address | City/State/Zipcode | Phone Number | | Organization | | | | + + + + + | [facility] | [address] | [place] [address] | [phone] | + + + + + POC Glucose (04/21/2019 8:10 AM PST) + + + + + + | Component | Value | Ref Range | Performed | Pathologist | | | | | At | Signature | + + + + + + | Glucose, | 131 (H)Comment: Testing | 65 - 99 mg/dL | [facility] | | | POC | performed at [facility];[address] | | LABORATORY | | | | [address];[place] | | | | | | [address] | | | | + + + + + + + + | Specimen | + + | | + + + + + + + | Performing | Address | City/State/Zipcode | Phone Number | | Organization | | | | + + + + + | [facility] | [address] | [place] [address] | [phone] | + + + + + POC Glucose (04/21/2019 5:12 AM PST) + + + + + + | Component | Value | Ref Range | Performed | Pathologist | | | | | At | Signature | + + + + + + | Glucose, | 146 (H)Comment: Testing | 65 - 99 mg/dL | [facility] | | | POC | performed at [facility];[address] | | LABORATORY | | | | [address];[place], [place] | | | | | | [address] | | | | + + + + + + + + | Specimen | + + | | + + + + + + + | Performing | Address | City/State/Zipcode | Phone Number | | Organization | | | | + + + + + | [facility] | [address] | [place] [address] | [phone] | + + + + + POC Glucose (04/20/2019 9:08 PM PST) + + + + + + | Component | Value | Ref Range | Performed | Pathologist | | | | | At | Signature | + + + + + + | Glucose, | 157 (H)Comment: Testing | 65 - 99 mg/dL | [facility] | | | POC | performed at [facility];[address] | | LABORATORY | | | | [address];[place] | | | | | | [address] | | | | + + + + + + + + | Specimen | + + | | + + + + + + + | Performing | Address | City/State/Zipcode | Phone Number | | Organization | | | | + + + + + | [facility] | [address] | [place] [address] | [phone] | + + + + + POC Glucose (04/20/2019 5:30 PM PST) + + + + + + | Component | Value | Ref Range | Performed | Pathologist | | | | | At | Signature | + + + + + + | Glucose, | 220 (H)Comment: Testing | 65 - 99 mg/dL | [facility] | | | POC | performed at [facility];[address] | | LABORATORY | | | | [address];[place], [place] | | | | | | [address] | | | | + + + + + + + + | Specimen | + + | | + + + + + + + | Performing | Address | City/State/Zipcode | Phone Number | | Organization | | | | + + + + + | [facility] | [address] | [place] [address] | [phone] | + + + + + POC Glucose (04/20/2019 5:04 PM PST) + + + + + + | Component | Value | Ref Range | Performed | Pathologist | | | | | At | Signature | + + + + + + | Glucose, | 199 (H)Comment: Testing | 65 - 99 mg/dL | [facility] | | | POC | performed at [facility];[address] | | LABORATORY | | | | [address];[place], [place] | | | | | | [address] | | | | + + + + + + + + | Specimen | + + | | + + + + + + + | Performing | Address | City/State/Zipcode | Phone Number | | Organization | | | | + + + + + | [facility] | [address] | [place] [address] | [phone] | + + + + + POC Glucose (04/20/2019 12:44 PM PST) + + + + + + | Component | Value | Ref Range | Performed | Pathologist | | | | | At | Signature | + + + + + + | Glucose, | 273 (H)Comment: Testing | 65 - 99 mg/dL | [facility] | | | POC | performed at [facility];[address] | | LABORATORY | | | | [address];[place], [place] | | | | | | [address] | | | | + + + + + + + + | Specimen | + + | | + + + + + + + | Performing | Address | City/State/Zipcode | Phone Number | | Organization | | | | + + + + + | [facility] | [address] | [place] [address] | [phone] | + + + + + Vancomycin Level (04/20/2019 12:39 PM PST) + + + + + + | Component | Value | Ref Range | Performed | Pathologist | | | | | At | Signature | + + + + + + | Vancomycin | 18.3Comment: Testing | ug/mL | [facility] | | | Random, | performed at [facility];[address] | | LABORATORY | | | Serum | [address];[place] | | | | | | [address] | | | | + + + + + + + + | Specimen | + + | Blood | + + + + + + + | Performing | Address | City/State/Zipcode | Phone Number | | Organization | | | | + + + + + | [facility] | [address] | [place] [address] | [phone] | + + + + + POC Glucose (04/20/2019 8:58 AM PST) + + + + + + | Component | Value | Ref Range | Performed | Pathologist | | | | | At | Signature | + + + + + + | Glucose, | 244 (H)Comment: Testing | 65 - 99 mg/dL | [facility] | | | POC | performed at [facility];[address] | | LABORATORY | | | | [address];[place] | | | | | | [address] | | | | + + + + + + + + | Specimen | + + | | + + + + + + + | Performing | Address | City/State/Zipcode | Phone Number | | Organization | | | | + + + + + | [facility] | [address] | [place] [address] | [phone] | + + + + + POC Glucose (04/20/2019 8:16 AM PST) + + + + + + | Component | Value | Ref Range | Performed | Pathologist | | | | | At | Signature | + + + + + + | Glucose, | 300 (H)Comment: Testing | 65 - 99 mg/dL | [facility] | | | POC | performed at [facility];[address] | | LABORATORY | | | | [address];[place] | | | | | | [address] | | | | + + + + + + + + | Specimen | + + | | + + + + + + + | Performing | Address | City/State/Zipcode | Phone Number | | Organization | | | | + + + + + | [facility] | [address] | [place] [address] | [phone] | + + + + + POC Glucose (04/19/2019 9:07 PM PST) + + + + + + | Component | Value | Ref Range | Performed | Pathologist | | | | | At | Signature | + + + + + + | Glucose, | 290 (H)Comment: Testing | 65 - 99 mg/dL | [facility] | | | POC | performed at [facility];[address] | | LABORATORY | | | | [address];[place], [place] | | | | | | [address] | | | | + + + + + + + + | Specimen | + + | | + + + + + + + | Performing | Address | City/State/Zipcode | Phone Number | | Organization | | | | + + + + + | [facility] | [address] | [place] [address] | [phone] | + + + + + POC Glucose (04/19/2019 6:12 PM PST) + + + + + + | Component | Value | Ref Range | Performed | Pathologist | | | | | At | Signature | + + + + + + | Glucose, | 186 (H)Comment: Testing | 65 - 99 mg/dL | [facility] | | | POC | performed at [facility];[address] | | LABORATORY | | | | [address];[place] | | | | | | [address] | | | | + + + + + + + + | Specimen | + + | | + + + + + + + | Performing | Address | City/State/Zipcode | Phone Number | | Organization | | | | + + + + + | [facility] | [address] | [place] [address] | [phone] | + + + + + POC Glucose (04/19/2019 12:44 PM PST) + + + + + + | Component | Value | Ref Range | Performed | Pathologist | | | | | At | Signature | + + + + + + | Glucose, | 209 (H)Comment: Testing | 65 - 99 mg/dL | [facility] | | | POC | performed at [facility];[address] | | LABORATORY | | | | [address];[place], [place] | | | | | | [address] | | | | + + + + + + + + | Specimen | + + | | + + + + + + + | Performing | Address | City/State/Zipcode | Phone Number | | Organization | | | | + + + + + | [facility] | [address] | [place] [address] | [phone] | + + + + + POC Glucose (04/19/2019 8:13 AM PST) + + + + + + | Component | Value | Ref Range | Performed | Pathologist | | | | | At | Signature | + + + + + + | Glucose, | 176 (H)Comment: Testing | 65 - 99 mg/dL | [facility] | | | POC | performed at [facility];[address] | | LABORATORY | | | | [address];[place], [place] | | | | | | [address] | | | | + + + + + + + + | Specimen | + + | | + + + + + + + | Performing | Address | City/State/Zipcode | Phone Number | | Organization | | | | + + + + + | [facility] | [address] | [place] [address] | [phone] | + + + + + Basic Metabolic Panel (04/19/2019 5:27 AM PST) + + + + + + | Component | Value | Ref Range | Performed | Pathologist | | | | | At | Signature | + + + + + + | Na | 134 (L) | 135 - 145 | [facility] | | | | | mmol/L | LABORATORY | | + + + + + + | K | 4.6 | 3.5 - 4.9 | [facility] | | | | | mmol/L | LABORATORY | | + + + + + + | Cl | 101 | 99 - 109 mmol/L | [facility] | | | | | | LABORATORY | | + + + + + + | CO2 | 29 | 23 - 32 mmol/L | [facility] | | | | | | LABORATORY | | + + + + + + | Anion Gap | 9 | 5 - 20 mmol/L | [facility] | | | | | | LABORATORY | | + + + + + + | Glucose | 183 (H) | 65 - 99 mg/dL | [facility] | | | | | | LABORATORY | | + + + + + + | BUN | 25 | 8 - 25 mg/dL | [facility] | | | | | | LABORATORY | | + + + + + + | Creatinine | 1.0 | 0.70 - 1.30 | [facility] | | | | | mg/dL | LABORATORY | | + + + + + + | BUN/Creatin | 25 | | [facility] | | | ine Ratio | | | LABORATORY | | + + + + + + | Calcium | 8.0 (L) | 8.5 - 10.5 | [facility] | | | | | mg/dL | LABORATORY | | + + + + + + | Estimated | >60Comment: GFR <60: | >60 | [facility] | | | GFR | CHRONIC KIDNEY DISEASE, | mL/min/1.73m2 | LABORATORY | | | | IF FOUND OVER A 3 MONTH | | | | | | PERIOD.GFR <15: KIDNEY | | | | | | FAILURE.FOR | | | | | | AMERICANS, MULTIPLY THE | | | | | | CALCULATED GFR BY | | | | | | 1.210.This eGFR is | | | | | | calculated using the | | | | | | [facility]D [facility] traceable | | | | | | equation.Testing | | | | | | performed at [facility], [address] | | | | | | [facility], | | | | | | [place] [address] | | | | + + + + + + + + | Specimen | + + | Blood | + + + + + + + | Performing | Address | City/State/Zipcode | Phone Number | | Organization | | | | + + + + + | [facility] | [address] | [place] [address] | [phone] | + + + + + CBC with Differential (04/19/2019 5:27 AM PST) + + +---- + + + | Component | Value | Ref Range | Performed | Pathologist | | | | | At | Signature | + + +---- + + + | WBC | 12.42 (H) | 3.8 0 - 11.00 | [facility] | | | | | K/u L | LABORATORY | | + + +---- + + + | RBC | 4.13 (L) | 4.2 0 - 5.70 | [facility] | | | | | M/u L | LABORATORY | | + + +---- + + + | Hemoglobin | 10.0 (L) | 13. 2 - 17.0 | [facility] | | | | | g/d L | LABORATORY | | + + +---- + + + | Hematocrit | 30.9 (L) | 39. 0 - 50.0 % | [facility] | | | | | | LABORATORY | | + + +---- + + + | MCV | 74.9 (L) | 80. 0 - 100.0 fl | [facility] | | | | | | LABORATORY | | + + +---- + + + | MCH | 24.3 (L) | 27. 0 - 34.0 pg | [facility] | | | | | | LABORATORY | | + + +---- + + + | MCHC | 32.4 | 32. 0 - 35.5 | [facility] | | | | | g/d L | LABORATORY | | + + +---- + + + | RDW-SD | 72.6 (H) | 37 - 53 fl | [facility] | | | | | | LABORATORY | | + + +---- + + + | Platelet | 324 | 150 - 400 K/uL | [facility] | | | Count | | | LABORATORY | | + + +---- + + + | MPV | 9.0 | fl | [facility] | | | | | | LABORATORY | | + + +---- + + + | Diff Type | AUTOMATED | | [facility] | | | | | | LABORATORY | | + + +---- + + + | % | 77.73 | % | [facility] | | | Neutrophils | | | LABORATORY | | + + +---- + + + | % | 9.60 | % | [facility] | | | Lymphocytes | | | LABORATORY | | + + +---- + + + | Monocyte % | 12.22 | % | [facility] | | | | | | LABORATORY | | + + +---- + + + | Eosinophils | 0.01 | % | [facility] | | | % | | | LABORATORY | | + + +---- + + + | Basophils % | 0.44 | % | [facility] | | | | | | LABORATORY | | + + +---- + + + | Neutrophils | 9.66 (H) | 1.9 0 - 7.40 | [facility] | | | , Absolute | | K/u L | LABORATORY | | + + +---- + + + | Absolute | 1.19 | 1.0 0 - 3.90 | [facility] | | | Lymphocytes | | K/u L | LABORATORY | | + + +---- + + + | Absolute | 1.52 (H) | 0.0 0 - 0.80 | [facility] | | | Monocytes | | K/u L | LABORATORY | | + + +---- + + + | Eosinophils | 0.00 | 0.0 0 - 0.50 | [facility] | | | , Absolute | | K/u L | LABORATORY | | + + +---- + + + | Basophils, | 0.06 | 0.0 0 - 0.10 | [facility] | | | Absolute | | K/u L | LABORATORY | | + + +---- + + + | RBC | 2+Comment: | | [facility] | | | Morphology | ANISO2+HYPO2+MICRONORMAL | | LABORATORY | | | | PLT MORPHTesting | | | | | | performed at [facility], [address] | | | | | | [facility], | | | | | | [place] [address] | | | | | |MICRO | | | | | |NORMAL PLT MORPH | | | | | |Testing performed at [facility], [address] [facility], [place] [address] | | | | | | | | | | + + +---- + + + + + | Specimen | + + | Blood | + + + + + + + | Performing | Address | City/State/Zipcode | Phone Number | | Organization | | | | + + + + + | [facility] | [address] | [place] [address] | [phone] | + + + + + POC Glucose (04/19/2019 4:11 AM PST) + + + + + + | Component | Value | Ref Range | Performed | Pathologist | | | | | At | Signature | + + + + + + | Glucose, | 178 (H)Comment: Testing | 65 - 99 mg/dL | [facility] | | | POC | performed at [facility];[address] | | LABORATORY | | | | [address];[place] | | | | | | [address] | | | | + + + + + + + + | Specimen | + + | | + + + + + + + | Performing | Address | City/State/Zipcode | Phone Number | | Organization | | | | + + + + + | [facility] | [address] | [place] [address] | [phone] | + + + + + POC Glucose (04/18/2019 9:02 PM PST) + + + + + + | Component | Value | Ref Range | Performed | Pathologist | | | | | At | Signature | + + + + + + | Glucose, | 295 (H)Comment: Testing | 65 - 99 mg/dL | [facility] | | | POC | performed at [facility];[address] | LABORATORY | | [address];[place] | | | | | | [address] | | | | + + + + + + + + | Specimen | + + | | + + + + + + + | Performing | Address | City/State/Zipcode | Phone Number | | Organization | | | | + + + + + | [facility] | [address] | [place] [address] | [phone] | + + + + + POC Glucose (04/18/2019 8:01 PM PST) + + + + + + | Component | Value | Ref Range | Performed | Pathologist | | | | | At | Signature | + + + + + + | Glucose, | 245 (H)Comment: Testing | 65 - 99 mg/dL | [facility] | | | POC | performed at [facility];[address] | | LABORATORY | | | | [address];[place] | | | | | | [address] | | | | + + + + + + + + | Specimen | + + | | + + + + + + + | Performing | Address | City/State/Zipcode | Phone Number | | Organization | | | | + + + + + | [facility] | [address] | [place] [address] | [phone] | + + + + + POC Glucose (04/18/2019 6:08 PM PST) + + + + + + | Component | Value | Ref Range | Performed | Pathologist | | | | | At | Signature | + + + + + + | Glucose, | 181 (H)Comment: Testing | 65 - 99 mg/dL | [facility] | | | POC | performed at [facility];[address] | | LABORATORY | | | | [address];[place], [place] | | | | | | [address] | | | | + + + + + + + + | Specimen | + + | | + + + + + + + | Performing | Address | City/State/Zipcode | Phone Number | | Organization | | | | + + + + + | [facility] | [address] | [place] [address] | [phone] | + + + + + POC Glucose (04/18/2019 3:27 PM PST) + + + + + + | Component | Value | Ref Range | Performed | Pathologist | | | | | At | Signature | + + + + + + | Glucose, | 141 (H)Comment: Testing | 65 - 99 mg/dL | [facility] | | | POC | performed at [facility];[address] | | LABORATORY | | | | [address];[place] | | | | | | [address] | | | | + + + + + + + + | Specimen | + + | | + + + + + + + | Performing | Address | City/State/Zipcode | Phone Number | | Organization | | | | + + + + + | [facility] | [address] | [place] [address] | [phone] | + + + + + NM Nuclear Stress Test (Vasodilator) (04/18/2019 3:20 PM PST) + +--------+ + + + | Component | Value | Ref Range | Performed | Pathologist | | | | | At | Signature | + +--------+ + + + | BASELINE | 72 | bpm | [facility] | | | HEART RATE | | | | | + +--------+ + + + | BASELINE | 169/84 | mmHg | [facility] | | | BLOOD | | | | | | PRESSURE | | | | | + +--------+ + + + | PEAK HEART | 76 | | [facility] | | | RATE | | | | | + +--------+ + + + | PEAK BLOOD | 169/84 | mmHG | [facility] | | | PRESSURE | | | | | + +--------+ + + + | Target HR | 126 | | [facility] | | + +--------+ + + + | Percent HR | 51 | | [facility] | | + +--------+ + + + | Max | 148 | | [facility] | | | Predicted | | | | | | HR | | | | | + +--------+ + + + | LVEF-SPECT | 36 | % | [facility] | | | NUCLEAR | | | | | | STRESS/VIAB | | | | | | ILITY | | | | | + +--------+ + + + | NM stress | 153 | | [facility] | | | end | | | | | | diastolic | | | | | | volume | | | | | + +--------+ + + + | NM stress | 98 | | [facility] | | | end | | | | | | systolic | | | | | | volume | | | | | + +--------+ + + + | NM rest end | 88 | | [facility] | | | diastolic | | | | | | volume | | | | | + +--------+ + + + | NM rest end | 50 | | [facility] | | | systolic | | | | | | volume | | | | | + +--------+ + + + | TID VALUE | 1.23 | | [facility] | | + +--------+ + + + + + | Specimen | + + | | + + + + + | Narrative | Performed At | + + + | [facility] | [facility] | | chemical stress infusionAbnormal SPECT study showing a large inferior | | | defect that undergoes partial improvementRight ventricular uptake of | | | tracer notedLV dysfunction with post-rest ejection fraction of 36% | | |LV dysfunction with post-rest ejection fraction of 36% | | | | | + + + + + | Procedure Note | + + | Noe Simmons MD - 04/18/2019 3:20 PM PST [facility] chemical stress infusion | | Abnormal SPECT study showing a large inferior defect that undergoes partial improvement | | Right ventricular uptake of tracer noted | | LV dysfunction with post-rest ejection fraction of 36% | + + + +---------+ + + | Performing | Address | City/State/Zipcode | Phone Number | | Organization | | | | + +---------+ + + | [facility] | | | | + +---------+ + + POC Glucose (04/18/2019 8:15 AM PST) + + + + + + | Component | Value | Ref Range | Performed | Pathologist | | | | | At | Signature | + + + + + + | Glucose, | 118 (H)Comment: Testing | 65 - 99 mg/dL | [facility] | | | POC | performed at [facility];[address] | | LABORATORY | | | | [address];[place], [place] | | | | | | [address] | | | | + + + + + + + + | Specimen | + + | | + + + + + + + | Performing | Address | City/State/Zipcode | Phone Number | | Organization | | | | + + + + + | [facility] | [address] | [place] [address] | [phone] | + + + + + Basic Metabolic Panel (04/18/2019 3:56 AM PST) + + + + + + | Component | Value | Ref Range | Performed | Pathologist | | | | | At | Signature | + + + + + + | Na | 135 | 135 - 145 | [facility] | | | | | mmol/L | LABORATORY | | + + + + + + | K | 4.3 | 3.5 - 4.9 | [facility] | | | | | mmol/L | LABORATORY | | + + + + + + | Cl | 100 | 99 - 109 mmol/L | [facility] | | | | | | LABORATORY | | + + + + + + | CO2 | 31 | 23 - 32 mmol/L | [facility] | | | | | | LABORATORY | | + + + + + + | Anion Gap | 8 | 5 - 20 mmol/L | [facility] | | | | | | LABORATORY | | + + + + + + | Glucose | 156 (H) | 65 - 99 mg/dL | [facility] | | | | | | LABORATORY | | + + + + + + | BUN | 14 | 8 - 25 mg/dL | [facility] | | | | | | LABORATORY | | + + + + + + | Creatinine | 0.89 | 0.70 - 1.30 | [facility] | | | | | mg/dL | LABORATORY | | + + + + + + | BUN/Creatin | 16 | | [facility] | | | ine Ratio | | | LABORATORY | | + + + + + + | Calcium | 8.0 (L) | 8.5 - 10.5 | [facility] | | | | | mg/dL | LABORATORY | | + + + + + + | Estimated | >60Comment: GFR <60: | >60 | [facility] | | | GFR | CHRONIC KIDNEY DISEASE, | mL/min/1.73m2 | LABORATORY | | | | IF FOUND OVER A 3 MONTH | | | | | | PERIOD.GFR <15: KIDNEY | | | | | | FAILURE.FOR | | | | | | AMERICANS, MULTIPLY THE | | | | | | CALCULATED GFR BY | | | | | | 1.210.This eGFR is | | | | | | calculated using the | | | | | | MDRD IDMS traceable | | | | | | equation.Testing | | | | | | performed at [facility] | | | | | | [facility];[place], [place] | | | | | | [address] | | | | + + + + + + + + | Specimen | + + | Blood | + + + + + + + | Performing | Address | City/State/Zipcode | Phone Number | | Organization | | | | + + + + + | [facility] | [address] | [place] [address] | [phone] | + + + + + CBC with Differential (04/18/2019 3:56 AM PST) + + + + + + | Component | Value | Ref Range | Performed | Pathologist | | | | | At | Signature | + + + + + + | WBC | 8.12 | 3.80 - 11.00 | [facility] | | | | | K/uL | LABORATORY | | + + + + + + | RBC | 4.49 | 4.20 - 5.70 | [facility] | | | | | M/uL | LABORATORY | | + + + + + + | Hemoglobin | 10.6 (L) | 13.2 - 17.0 | [facility] | | | | | g/dL | LABORATORY | | + + + + + + | Hematocrit | 33.7 (L) | 39.0 - 50.0 % | [facility] | | | | | | LABORATORY | | + + + + + + | MCV | 75.0 (L) | 80.0 - 100.0 fl | [facility] | | | | | | LABORATORY | | + + + + + + | MCH | 23.7 (L) | 27.0 - 34.0 pg | [facility] | | | | | | LABORATORY | | + + + + + + | MCHC | 31.5 (L) | 32.0 - 35.5 | [facility] | | | | | g/dL | LABORATORY | | + + + + + + | RDW-SD | 70.4 (H) | 37 - 53 fl | [facility] | | | | | | LABORATORY | | + + + + + + | Platelet | 289 | 150 - 400 K/uL | [facility] | | | Count | | | LABORATORY | | + + + + + + | MPV | 8.5 | fl | [facility] | | | | | | LABORATORY | | + + + + + + | Diff Type | AUTOMATED | | [facility] | | | | | | LABORATORY | | + + + + + + | % | 67.44 | % | [facility] | | | Neutrophils | | | LABORATORY | | + + + + + + | % | 16.82 | % | [facility] | | | Lymphocytes | | | LABORATORY | | + + + + + + | Monocyte % | 12.30 | % | [facility] | | | | | | LABORATORY | | + + + + + + | Eosinophils | 2.59 | % | [facility] | | | % | | | LABORATORY | | + + + + + + | Basophils % | 0.85 | % | [facility] | | | | | | LABORATORY | | + + + + + + | Neutrophils | 5.48 | 1.90 - 7.40 | [facility] | | | , Absolute | | K/uL | LABORATORY | | + + + + + + | Absolute | 1.37 | 1.00 - 3.90 | [facility] | | | Lymphocytes | | K/uL | LABORATORY | | + + + + + + | Absolute | 1.00 (H) | 0.00 - 0.80 | [facility] | | | Monocytes | | K/uL | LABORATORY | | + + + + + + | Eosinophils | 0.21 | 0.00 - 0.50 | [facility] | | | , Absolute | | K/uL | LABORATORY | | + + + + + + | Basophils, | 0.07 | 0.00 - 0.10 | [facility] | | | Absolute | | K/uL | LABORATORY | | + + + + + + | RBC | 3+ | | [facility] | | | Morphology | Comment: | | LABORATORY | | | | ANISO | | | | | | 1+ | | | | | | HYPO | | | | | | 2+ | | | | | | MICRO | | | | | | 1+ | | | | | | GIANT PLATELETS | | | | | | | | | | + + + + + + | Platelet | ADEQUATEComment: Testing | | ARTEMIO | | | Estimate | performed at [facility];[address] | | LABORATORY | | | | [address];[place] | | | | | | [address] | | | | + + + + + + + + | Specimen | + + | Blood | + + + + + + + | Performing | Address | City/State/Zipcode | Phone Number | | Organization | | | | + + + + + | [facility] | [address] | [place] [address] | [phone] | + + + + + POC Glucose (04/17/2019 8:41 PM PST) + + + + + + | Component | Value | Ref Range | Performed | Pathologist | | | | | At | Signature | + + + + + + | Glucose, | 183 (H)Comment: Testing | 65 - 99 mg/dL | [facility] | | | POC | performed at [facility];[address] | | LABORATORY | | | | [address];[place], [place] | | | | | | [address] | | | | + + + + + + + + | Specimen | + + | | + + + + + + + | Performing | Address | City/State/Zipcode | Phone Number | | Organization | | | | + + + + + | [facility] | [address] | [place] [address] | [phone] | + + + + + POC Glucose (04/17/2019 4:24 PM PST) + + + + + + | Component | Value | Ref Range | Performed | Pathologist | | | | | At | Signature | + + + + + + | Glucose, | 178 (H)Comment: Testing | 65 - 99 mg/dL | [facility] | | | POC | performed at [facility];[address] | | LABORATORY | | | | [address];[place] | | | | | | [address] | | | | + + + + + + + + | Specimen | + + | | + + + + + + + | Performing | Address | City/State/Zipcode | Phone Number | | Organization | | | | + + + + + | [facility] | [address] | [place] [address] | [phone] | + + + + + Vancomycin, Trough (04/17/2019 12:30 PM PST) + + + + + + | Component | Value | Ref Range | Performed | Pathologist | | | | | At | Signature | + + + + + + | Vancomycin, | 17.2Comment: 15 to 20 | 10 - 20 ug/mL | [facility] | | | Trough | ug/mL for meningitis, | | LABORATORY | | | | osteomyelitis, | | | | | | endocarditis, sepsis, | | | | | | orhealthcare associated | | | | | | pneumonia, or an JESSICA | | | | | | equal to or greater than | | | | | | 1.0 ug/mLTesting | | | | | | performed at [facility] | | | | | | [facility];[place], [place] | | | | | | [address] | | | | + + + + + + + + | Specimen | + + | Blood | + + + + + + + | Performing | Address | City/State/Zipcode | Phone Number | | Organization | | | | + + + + + | [facility] | [address] | [place] [address] | [phone] | + + + + + POC Glucose (04/17/2019 12:05 PM PST) + + + + + + | Component | Value | Ref Range | Performed | Pathologist | | | | | At | Signature | + + + + + + | Glucose, | 200 (H)Comment: Testing | 65 - 99 mg/dL | [facility] | | | POC | performed at [facility];[address] | | LABORATORY | | | | [address];[place] | | | | | | [address] | | | | + + + + + + + + | Specimen | + + | | + + + + + + + | Performing | Address | City/State/Zipcode | Phone Number | | Organization | | | | + + + + + | [facility] | [address] | [place] [address] | [phone] | + + + + + POC Glucose (04/17/2019 10:11 AM PST) + + + + + + | Component | Value | Ref Range | Performed | Pathologist | | | | | At | Signature | + + + + + + | Glucose, | 138 (H)Comment: Testing | 65 - 99 mg/dL | [facility] | | | POC | performed at [facility];[address] | | LABORATORY | | | | [address];[place] | | | | | | [address] | | | | + + + + + + + + | Specimen | + + | | + + + + + + + | Performing | Address | City/State/Zipcode | Phone Number | | Organization | | | | + + + + + | [facility] | [address] | [place] [address] | [phone] | + + + + + POC Glucose (04/17/2019 7:54 AM PST) + + + + + + | Component | Value | Ref Range | Performed | Pathologist | | | | | At | Signature | + + + + + + | Glucose, | 141 (H)Comment: Testing | 65 - 99 mg/dL | [facility] | | | POC | performed at [facility];[address] | | LABORATORY | | | | [address];[place], [place] | | | | | | [address] | | | | + + + + + + + + | Specimen | + + | | + + + + + + + | Performing | Address | City/State/Zipcode | Phone Number | | Organization | | | | + + + + + | [facility] | [address] | [place] [address] | [phone] | + + + + + Basic Metabolic Panel (04/17/2019 5:20 AM PST) + + + + + + | Component | Value | Ref Range | Performed | Pathologist | | | | | At | Signature | + + + + + + | Na | 136 | 135 - 145 | [facility] | | | | | mmol/L | LABORATORY | | + + + + + + | K | 4.3 | 3.5 - 4.9 | [facility] | | | | | mmol/L | LABORATORY | | + + + + + + | Cl | 102 | 99 - 109 mmol/L | [facility] | | | | | | LABORATORY | | + + + + + + | CO2 | 29 | 23 - 32 mmol/L | [facility] | | | | | | LABORATORY | | + + + + + + | Anion Gap | 9 | 5 - 20 mmol/L | [facility] | | | | | | LABORATORY | | + + + + + + | Glucose | 129 (H) | 65 - 99 mg/dL | [facility] | | | | | | LABORATORY | | + + + + + + | BUN | 14 | 8 - 25 mg/dL | [facility] | | | | | | LABORATORY | | + + + + + + | Creatinine | 0.7 | 0.70 - 1.30 | [facility] | | | | | mg/dL | LABORATORY | | + + + + + + | BUN/Creatin | 20 | | [facility] | | | ine Ratio | | | LABORATORY | | + + + + + + | Calcium | 8.1 (L) | 8.5 - 10.5 | [facility] | | | | | mg/dL | LABORATORY | | + + + + + + | Estimated | >60Comment: GFR <60: | >60 | [facility] | | | GFR | CHRONIC KIDNEY DISEASE, | mL/min/1.73m2 | LABORATORY | | | | IF FOUND OVER A 3 MONTH | | | | | | PERIOD.GFR <15: KIDNEY | | | | | | FAILURE.FOR | | | | | | AMERICANS, MULTIPLY THE | | | | | | CALCULATED GFR BY | | | | | | 1.210.This eGFR is | | | | | | calculated using the | | | | | | MDRD IDMS traceable | | | | | | equation.Testing | | | | | | performed at [facility], [address] | | | | | | [facility], | | | | | | [place] [address] | | | | + + + + + + + + | Specimen | + + | Blood | + + + + + + + | Performing | Address | City/State/Zipcode | Phone Number | | Organization | | | | + + + + + | [facility] | [address] | [place] [address] | [phone] | + + + + + CBC with Differential (04/17/2019 5:20 AM PST) + + +---- + + + | Component | Value | Ref Range | Performed | Pathologist | | | | | At | Signature | + + +---- + + + | WBC | 10.10 | 3.8 0 - 11.00 | [facility] | | | | | K/u L | LABORATORY | | + + +---- + + + | RBC | 4.44 | 4.2 0 - 5.70 | [facility] | | | | | M/u L | LABORATORY | | + + +---- + + + | Hemoglobin | 10.4 (L) | 13. 2 - 17.0 | [facility] | | | | | g/d L | LABORATORY | | + + +---- + + + | Hematocrit | 33.2 (L) | 39. 0 - 50.0 % | [facility] | | | | | | LABORATORY | | + + +---- + + + | MCV | 74.8 (L) | 80. 0 - 100.0 fl | [facility] | | | | | | LABORATORY | | + + +---- + + + | MCH | 23.5 (L) | 27. 0 - 34.0 pg | [facility] | | | | | | LABORATORY | | + + +---- + + + | MCHC | 31.5 (L) | 32. 0 - 35.5 | [facility] | | | | | g/d L | LABORATORY | | + + +---- + + + | RDW-SD | 68.7 (H) | 37 - 53 fl | [facility] | | | | | | LABORATORY | | + + +---- + + + | Platelet | 301 | 150 - 400 K/uL | [facility] | | | Count | | | LABORATORY | | + + +---- + + + | MPV | 8.7 | fl | [facility] | | | | | | LABORATORY | | + + +---- + + + | Diff Type | AUTOMATED | | [facility] | | | | | | LABORATORY | | + + +---- + + + | % | 75.34 | % | [facility] | | | Neutrophils | | | LABORATORY | | + + +---- + + + | % | 11.83 | % | [facility] | | | Lymphocytes | | | LABORATORY | | + + +---- + + + | Monocyte % | 10.09 | % | [facility] | | | | | | LABORATORY | | + + +---- + + + | Eosinophils | 2.05 | % | [facility] | | | % | | | LABORATORY | | + + +---- + + + | Basophils % | 0.69 | % | [facility] | | | | | | LABORATORY | | + + +---- + + + | Neutrophils | 7.61 (H) | 1.9 0 - 7.40 | [facility] | | | , Absolute | | K/u L | LABORATORY | | + + +---- + + + | Absolute | 1.20 | 1.0 0 - 3.90 | [facility] | | | Lymphocytes | | K/u L | LABORATORY | | + + +---- + + + | Absolute | 1.02 (H) | 0.0 0 - 0.80 | [facility] | | | Monocytes | | K/u L | LABORATORY | | + + +---- + + + | Eosinophils | 0.21 | 0.0 0 - 0.50 | [facility] | | | , Absolute | | K/u L | LABORATORY | | + + +---- + + + | Basophils, | 0.07 | 0.0 0 - 0.10 | [facility] | | | Absolute | | K/u L | LABORATORY | | + + +---- + + + | RBC | 2+Comment: | | [facility] | | | Morphology | ANISO2+HYPO2+MICRONORMAL | | LABORATORY | | | | PLT MORPHTesting | | | | | | performed at [facility], [facility] [address] | | | | | | [facility], | | | | | | [place] [address] | | | | | |MICRO | | | | | |NORMAL PLT MORPH | | | | | |Testing performed at [facility], [facility] [place] [address] | | | | | | | | | | + + +---- + + + + + | Specimen | + + | Blood | + + + + + + + | Performing | Address | City/State/Zipcode | Phone Number | | Organization | | | | + + + + + | [facility] | [address] | [place] [address] | [phone] | + + + + + POC Glucose (04/16/2019 8:57 PM PST) + + + + + + | Component | Value | Ref Range | Performed | Pathologist | | | | | At | Signature | + + + + + + | Glucose, | 96Comment: Testing | 65 - 99 mg/dL | [facility] | | | POC | performed at [facility];[address] | | LABORATORY | | | | [address];[place] | | | | | | [address] | | | | + + + + + + + + | Specimen | + + | | + + + + + + + | Performing | Address | City/State/Zipcode | Phone Number | | Organization | | | | + + + + + | [facility] | [address] | [place] [address] | [phone] | + + + + + POC Glucose (04/16/2019 4:39 PM PST) + + + + + + | Component | Value | Ref Range | Performed | Pathologist | | | | | At | Signature | + + + + + + | Glucose, | 192 (H)Comment: Testing | 65 - 99 mg/dL | [facility] | | | POC | performed at [facility];[address] | | LABORATORY | | | | [address];[place], [place] | | | | | | [address] | | | | + + + + + + + + | Specimen | + + | | + + + + + + + | Performing | Address | City/State/Zipcode | Phone Number | | Organization | | | | + + + + + | [facility] | [address] | [place] [address] | [phone] | + + + + + POC Glucose (04/16/2019 1:15 PM PST) + + + + + + | Component | Value | Ref Range | Performed | Pathologist | | | | | At | Signature | + + + + + + | Glucose, | 106 (H)Comment: Testing | 65 - 99 mg/dL | [facility] | | | POC | performed at [facility];[address] | | LABORATORY | | | | [address];[place], [place] | | | | | | [address] | | | | + + + + + + + + | Specimen | + + | | + + + + + + + | Performing | Address | City/State/Zipcode | Phone Number | | Organization | | | | + + + + + | [facility] | [address] | [place] [address] | [phone] | + + + + + POC Glucose (04/16/2019 7:36 AM PST) + + + + + + | Component | Value | Ref Range | Performed | Pathologist | | | | | At | Signature | + + + + + + | Glucose, | 100 (H)Comment: Testing | 65 - 99 mg/dL | [facility] | | | POC | performed at [facility];[address] | | LABORATORY | | | | [address];[place], [place] | | | | | | [address] | | | | + + + + + + + + | Specimen | + + | | + + + + + + + | Performing | Address | City/State/Zipcode | Phone Number | | Organization | | | | + + + + + | [facility] | [address] | [place] [address] | [phone] | + + + + + CBC with Differential (04/16/2019 5:36 AM PST) + + +---- + + + | Component | Value | Ref Range | Performed | Pathologist | | | | | At | Signature | + + +---- + + + | WBC | 11.71 (H) | 3.8 0 - 11.00 | [facility] | | | | | K/u L | LABORATORY | | + + +---- + + + | RBC | 4.22 | 4.2 0 - 5.70 | [facility] | | | | | M/u L | LABORATORY | | + + +---- + + + | Hemoglobin | 9.8 (L) | 13. 2 - 17.0 | [facility] | | | | | g/d L | LABORATORY | | + + +---- + + + | Hematocrit | 30.6 (L) | 39. 0 - 50.0 % | [facility] | | | | | | LABORATORY | | + + +---- + + + | MCV | 72.5 (L) | 80. 0 - 100.0 fl | [facility] | | | | | | LABORATORY | | + + +---- + + + | MCH | 23.3 (L) | 27. 0 - 34.0 pg | [facility] | | | | | | LABORATORY | | + + +---- + + + | MCHC | 32.1 | 32. 0 - 35.5 | [facility] | | | | | g/d L | LABORATORY | | + + +---- + + + | RDW-SD | 65.2 (H) | 37 - 53 fl | [facility] | | | | | | LABORATORY | | + + +---- + + + | Platelet | 318 | 150 - 400 K/uL | [facility] | | | Count | | | LABORATORY | | + + +---- + + + | MPV | 8.3 | fl | [facility] | | | | | | LABORATORY | | + + +---- + + + | Diff Type | AUTOMATED | | [facility] | | | | | | LABORATORY | | + + +---- + + + | % | 75.72 | % | [facility] | | | Neutrophils | | | LABORATORY | | + + +---- + + + | % | 10.53 | % | [facility] | | | Lymphocytes | | | LABORATORY | | + + +---- + + + | Monocyte % | 11.44 | % | [facility] | | | | | | LABORATORY | | + + +---- + + + | Eosinophils | 1.37 | % | [facility] | | | % | | | LABORATORY | | + + +---- + + + | Basophils % | 0.94 | % | [facility] | | | | | | LABORATORY | | + + +---- + + + | Neutrophils | 8.87 (H) | 1.9 0 - 7.40 | [facility] | | | , Absolute | | K/u L | LABORATORY | | + + +---- + + + | Absolute | 1.23 | 1.0 0 - 3.90 | [facility] | | | Lymphocytes | | K/u L | LABORATORY | | + + +---- + + + | Absolute | 1.34 (H) | 0.0 0 - 0.80 | [facility] | | | Monocytes | | K/u L | LABORATORY | | + + +---- + + + | Eosinophils | 0.16 | 0.0 0 - 0.50 | [facility] | | | , Absolute | | K/u L | LABORATORY | | + + +---- + + + | Basophils, | 0.11 (H) | 0.0 0 - 0.10 | [facility] | | | Absolute | | K/u L | LABORATORY | | + + +---- + + + | RBC | 2+Comment: | | [facility] | | | Morphology | ANISO2+HYPO2+MICRONORMAL | | LABORATORY | | | | PLT MORPHTesting | | | | | | performed at [facility], [address] | | | | | | [facility], | | | | | | [place] [address] | | | | | |MICRO | | | | | |NORMAL PLT MORPH | | | | | |Testing performed at [facility], [address] [facility], [place] [address] | | | | | | | | | | + + +---- + + + + + | Specimen | + + | Blood | + + + + + + + | Performing | Address | City/State/Zipcode | Phone Number | | Organization | | | | + + + + + | [facility] | [address] | [place] [address] | [phone] | + + + + + Basic Metabolic Panel (04/16/2019 5:36 AM PST) + + + + + + | Component | Value | Ref Range | Performed | Pathologist | | | | | At | Signature | + + + + + + | Na | 136 | 135 - 145 | [facility] | | | | | mmol/L | LABORATORY | | + + + + + + | K | 3.9 | 3.5 - 4.9 | [facility] | | | | | mmol/L | LABORATORY | | + + + + + + | Cl | 104 | 99 - 109 mmol/L | [facility] | | | | | | LABORATORY | | + + + + + + | CO2 | 29 | 23 - 32 mmol/L | [facility] | | | | | | LABORATORY | | + + + + + + | Anion Gap | 7 | 5 - 20 mmol/L | [facility] | | | | | | LABORATORY | | + + + + + + | Glucose | 86 | 65 - 99 mg/dL | [facility] | | | | | | LABORATORY | | + + + + + + | BUN | 14 | 8 - 25 mg/dL | [facility] | | | | | | LABORATORY | | + + + + + + | Creatinine | 0.7 | 0.70 - 1.30 | [facility] | | | | | mg/dL | LABORATORY | | + + + + + + | BUN/Creatin | 20 | | [facility] | | | ine Ratio | | | LABORATORY | | + + + + + + | Calcium | 8.3 (L) | 8.5 - 10.5 | [facility] | | | | | mg/dL | LABORATORY | | + + + + + + | Estimated | >60Comment: GFR <60: | >60 | [facility] | | | GFR | CHRONIC KIDNEY DISEASE, | mL/min/1.73m2 | LABORATORY | | | | IF FOUND OVER A 3 MONTH | | | | | | PERIOD.GFR <15: KIDNEY | | | | | | FAILURE.FOR | | | | | | AMERICANS, MULTIPLY THE | | | | | | CALCULATED GFR BY | | | | | | 1.210.This eGFR is | | | | | | calculated using the | | | | | | MDRD IDMS traceable | | | | | | equation.Testing | | | | | | performed at [facility], [address] | | | | | | [facility], | | | | | | [place] [address] | | | | + + + + + + + + | Specimen | + + | Blood | + + + + + + + | Performing | Address | City/State/Zipcode | Phone Number | | Organization | | | | + + + + + | [facility] | [address] | [place] [address] | [phone] | + + + + + POC Glucose (04/15/2019 9:03 PM PST) + + + + + + | Component | Value | Ref Range | Performed | Pathologist | | | | | At | Signature | + + + + + + | Glucose, | 171 (H)Comment: Testing | 65 - 99 mg/dL | [facility] | | | POC | performed at [facility];[id number] | LABORATORY | | | [address];[place], [place] | | | | | | [address] | | | | + + + + + + + + | Specimen | + + | | + + + + + + + | Performing | Address | City/State/Zipcode | Phone Number | | Organization | | | | + + + + + | [facility] | [address] | [place] [address] | [phone] | + + + + + POC Glucose (04/15/2019 4:51 PM PST) + + + + + + | Component | Value | Ref Range | Performed | Pathologist | | | | | At | Signature | + + + + + + | Glucose, | 239 (H)Comment: Testing | 65 - 99 mg/dL | [facility] | | | POC | performed at [facility];[address] | | LABORATORY | | | | [address];[place], [place] | | | | | | [address] | | | | + + + + + + + + | Specimen | + + | | + + + + + + + | Performing | Address | City/State/Zipcode | Phone Number | | Organization | | | | + + + + + | [facility] | [address] | [place] [address] | [phone] | + + + + + POC Glucose (04/15/2019 1:19 PM PST) + + + + + + | Component | Value | Ref Range | Performed | Pathologist | | | | | At | Signature | + + + + + + | Glucose, | 227 (H)Comment: Testing | 65 - 99 mg/dL | [facility] | | | POC | performed at [facility];[address] | | LABORATORY | | | | [address];[place], [place] | | | | | | [address] | | | | + + + + + + + + | Specimen | + + | | + + + + + + + | Performing | Address | City/State/Zipcode | Phone Number | | Organization | | | | + + + + + | [facility] | [address] | [place] [address] | [phone] | + + + + + Type and Screen (04/15/2019 1:15 PM PST) + + + + + + | Component | Value | Ref Range | Performed | Pathologist | | | | | At | Signature | + + + + + + | ABO Rh | O POSITIVE | | [facility] | | | | | | LABORATORY | | + + + + + + | Antibody | NEGATIVE | | [facility] | | | Screen | | | LABORATORY | | + + + + + + | BB BAND | [id number] | | [facility] | | | | | | LABORATORY | | + + + + + + | UNIT # | [id number] | | [facility] | | | | | | LABORATORY | | + + + + + + | Product | LEUKODEPLETED PC | | [facility] | | | Code | | | LABORATORY | | + + + + + + | Unit | 00 | | [facility] | | | Division | | | LABORATORY | | + + + + + + | Unit Status | ISSUED,FINAL | | [facility] | | | | | | LABORATORY | | + + + + + + | Transfusion | OK TO TRANSFUSE | | [facility] | | | Status | | | LABORATORY | | + + + + + + | CROSSMATCH | COMPATIBLE | | [facility] | | | RESULT | | | LABORATORY | | + + + + + + | UNIT # | [id number] | | [facility] | | | | | | LABORATORY | | + + + + + + | Product | LEUKODEPLETED PC | | [facility] | | | Code | | | LABORATORY | | + + + + + + | Unit | 00 | | [facility] | | | Division | | | LABORATORY | | + + + + + + | Unit Status | ISSUED,FINAL | | [facility] | | | | | | LABORATORY | | + + + + + + | Transfusion | OK TO TRANSFUSE | | [facility] | | | Status | | | LABORATORY | | + + + + + + | CROSSMATCH | COMPATIBLE | | [facility] | | | RESULT | | | LABORATORY | | + + + + + + | UNIT # | [id number] | | [facility] | | | | | | LABORATORY | | + + + + + + | Product | LEUKODEPLETED PC | | [facility] | | | Code | | | LABORATORY | | + + + + + + | Unit | 00 | | [facility] | | | Division | | | LABORATORY | | + + + + + + | Unit Status | ISSUED,FINAL | | [facility] | | | | | | LABORATORY | | + + + + + + | Transfusion | OK TO TRANSFUSE | | [facility] | | | Status | | | LABORATORY | | + + + + + + | CROSSMATCH | COMPATIBLETesting | | [facility] | | | RESULT | performed at [facility];[address] | | LABORATORY | | | | [address];[place] | | | | | | [address] | | | | + + + + + + + + | Specimen | + + | Blood | + + + + + + + | Performing | Address | City/State/Zipcode | Phone Number | | Organization | | | | + + + + + | [facility] | [address] | [place] [address] | [phone] | + + + + + Red Blood Cells (PRBC) - Crossmatch (04/15/2019 1:14 PM PST) + + + + + + | Component | Value | Ref Range | Performed | Pathologist | | | | | At | Signature | + + + + + + | Product | RED CELL GROUP | | [facility] | | | Code | | | LABORATORY | | + + + + + + | Units | 3 | | [facility] | | | ordered | | | LABORATORY | | + + + + + + | BLOOD BANK | ORDER RECEIVED IN BLOOD | | [facility] | | | COMMENT | BANK. | | LABORATORY | | + + + + + + | BLOOD BANK | Testing performed at | | [facility] | | | COMMENT | [facility];[address] | | LABORATORY | | | | [address];[place] [address] | | | | + + + + + + + + | Specimen | + + | | + + + + + + + | Performing | Address | City/State/Zipcode | Phone Number | | Organization | | | | + + + + + | [facility] | [address] | [place] [address] | [phone] | + + + + + POC Glucose (04/15/2019 9:11 AM PST) + + + + + + | Component | Value | Ref Range | Performed | Pathologist | | | | | At | Signature | + + + + + + | Glucose, | 165 (H)Comment: Testing | 65 - 99 mg/dL | [facility] | | | POC | performed at [facility];[address] | | LABORATORY | | | | [address];[place], [place] | | | | | | [address] | | | | + + + + + + + + | Specimen | + + | | + + + + + + + | Performing | Address | City/State/Zipcode | Phone Number | | Organization | | | | + + + + + | [facility] | [address] | [place] [address] | [phone] | + + + + + Vancomycin, Trough (04/15/2019 7:52 AM PST) + + + + + + | Component | Value | Ref Range | Performed | Pathologist | | | | | At | Signature | + + + + + + | Vancomycin, | 23.9 ()Comment: 15 to | 10 - 20 ug/mL | [facility] | | | Trough | 20 ug/mL for meningitis, | | LABORATORY | | | | osteomyelitis, | | | | | | endocarditis, sepsis, | | | | | | orhealthcare associated | | | | | | pneumonia, or an JESSICA | | | | | | equal to or greater than | | | | | | 1.0 ug/mLRESULTS CALLED | | | | | | TO CRISTA G/4RP | | | | | | 0829T,JBREAD BACK | | | | | | RESULTS VERIFIEDTesting | | | | | | performed at [facility];[address] | | | | | | [address];[place] | | | | | | [address] | | | | + + + + + + + + | Specimen | + + | Blood | + + + + + + + | Performing | Address | City/State/Zipcode | Phone Number | | Organization | | | | + + + + + | [facility] | [address] | [place] [address] | [phone] | + + + + + CBC with Differential (04/15/2019 6:36 AM PST) + + + + + + | Component | Value | Ref Range | Performed | Pathologist | | | | | At | Signature | + + + + + + | WBC | 8.99 | 3.80 - 11.00 | [facility] | | | | | K/uL | LABORATORY | | + + + + + + | RBC | 3.73 (L) | 4.20 - 5.70 | [facility] | | | | | M/uL | LABORATORY | | + + + + + + | Hemoglobin | 8.2 (L) | 13.2 - 17.0 | [facility] | | | | | g/dL | LABORATORY | | + + + + + + | Hematocrit | 25.6 (L) | 39.0 - 50.0 % | [facility] | | | | | | LABORATORY | | + + + + + + | MCV | 68.6 (L) | 80.0 - 100.0 fl | [facility] | | | | | | LABORATORY | | + + + + + + | MCH | 22.0 (L) | 27.0 - 34.0 pg | [facility] | | | | | | LABORATORY | | + + + + + + | MCHC | 32.0 | 32.0 - 35.5 | [facility] | | | | | g/dL | LABORATORY | | + + + + + + | RDW-SD | 52.9 | 37 - 53 fl | [facility] | | | | | | LABORATORY | | + + + + + + | Platelet | 303 | 150 - 400 K/uL | [facility] | | | Count | | | LABORATORY | | + + + + + + | MPV | 8.5 | fl | [facility] | | | | | | LABORATORY | | + + + + + + | Diff Type | AUTOMATED | | [facility] | | | | | | LABORATORY | | + + + + + + | % | 69.35 | % | [facility] | | | Neutrophils | | | LABORATORY | | + + + + + + | % | 14.71 | % | [facility] | | | Lymphocytes | | | LABORATORY | | + + + + + + | Monocyte % | 13.51 | % | [facility] | | | | | | LABORATORY | | + + + + + + | Eosinophils | 1.70 | % | [facility] | | | % | | | LABORATORY | | + + + + + + | Basophils % | 0.73 | % | [facility] | | | | | | LABORATORY | | + + + + + + | Neutrophils | 6.24 | 1.90 - 7.40 | [facility] | | | , Absolute | | K/uL | LABORATORY | | + + + + + + | Absolute | 1.32 | 1.00 - 3.90 | [facility] | | | Lymphocytes | | K/uL | LABORATORY | | + + + + + + | Absolute | 1.22 (H) | 0.00 - 0.80 | [facility] | | | Monocytes | | K/uL | LABORATORY | | + + + + + + | Eosinophils | 0.15 | 0.00 - 0.50 | [facility] | | | , Absolute | | K/uL | LABORATORY | | + + + + + + | Basophils, | 0.07 | 0.00 - 0.10 | [facility] | | | Absolute | | K/uL | LABORATORY | | + + + + + + | RBC | 1+ | | [facility] | | | Morphology | Comment: | | LABORATORY | | | | HYPO | | | | | | 3+ | | | | | | MICRO | | | | | | 1+ | | | | | | ANISO | | | | | | NORMAL PLT MORPH | | | | | | 1+ | | | | | | OVALO | | | | | | | | | | + + + + + + | Platelet | ADEQUATEComment: Testing | | [facility] | | | Estimate | performed at [facility] | | LABORATORY | | | | [address];[place] | | | | | | [address] | | | | + + + + + + + + | Specimen | + + | Blood | + + + + + + + | Performing | Address | City/State/Zipcode | Phone Number | | Organization | | | | + + + + + | [facility] | [address] | [place] [address] | [phone] | + + + + + Basic Metabolic Panel (04/15/2019 6:36 AM PST) + + + + + + | Component | Value | Ref Range | Performed | Pathologist | | | | | At | Signature | + + + + + + | Na | 136 | 135 - 145 | [facility] | | | | | mmol/L | LABORATORY | | + + + + + + | K | 3.8 | 3.5 - 4.9 | [facility] | | | | | mmol/L | LABORATORY | | + + + + + + | Cl | 99 | 99 - 109 mmol/L | [facility] | | | | | | LABORATORY | | + + + + + + | CO2 | 31 | 23 - 32 mmol/L | [facility] | | | | | | LABORATORY | | + + + + + + | Anion Gap | 10 | 5 - 20 mmol/L | [facility] | | | | | | LABORATORY | | + + + + + + | Glucose | 145 (H) | 65 - 99 mg/dL | [facility] | | | | | | LABORATORY | | + + + + + + | BUN | 14 | 8 - 25 mg/dL | [facility] | | | | | | LABORATORY | | + + + + + + | Creatinine | 0.76 | 0.70 - 1.30 | [facility] | | | | | mg/dL | LABORATORY | | + + + + + + | BUN/Creatin | 18 | | [facility] | | | ine Ratio | | | LABORATORY | | + + + + + + | Calcium | 8.1 (L) | 8.5 - 10.5 | [facility] | | | | | mg/dL | LABORATORY | | + + + + + + | Estimated | >60Comment: GFR <60: | >60 | [facility] | | | GFR | CHRONIC KIDNEY DISEASE, | mL/min/1.73m2 | LABORATORY | | | | IF FOUND OVER A 3 MONTH | | | | | | PERIOD.GFR <15: KIDNEY | | | | | | FAILURE.FOR | | | | | | AMERICANS, MULTIPLY THE | | | | | | CALCULATED GFR BY | | | | | | 1.210.This eGFR is | | | | | | calculated using the | | | | | | MDRD IDUT traceable | | | | | | equation.Testing | | | | | | performed at [facility];[address] | | | | | | [facility];[place], [place] | | | | | | [address] | | | | + + + + + + + + | Specimen | + + | Blood | + + + + + + + | Performing | Address | City/State/Zipcode | Phone Number | | Organization | | | | + + + + + | [facility] | [address] | [place] [address] | [phone] | + + + + + POC Glucose (04/14/2019 8:15 PM PST) + + + + + + | Component | Value | Ref Range | Performed | Pathologist | | | | | At | Signature | + + + + + + | Glucose, | 159 (H)Comment: Testing | 65 - 99 mg/dL | [facility] | | | POC | performed at [facility];[address] | | LABORATORY | | | | [address];[place] | | | | | | [address] | | | | + + + + + + + + | Specimen | + + | | + + + + + + + | Performing | Address | City/State/Zipcode | Phone Number | | Organization | | | | + + + + + | [facility] | [address] [facility] | [place] [address] | [phone] | + + + + + POC Glucose (04/14/2019 4:58 PM PST) + + + + + + | Component | Value | Ref Range | Performed | Pathologist | | | | | At | Signature | + + + + + + | Glucose, | 175 (H)Comment: Testing | 65 - 99 mg/dL | [facility] | | | POC | performed at [facility];[address] | | LABORATORY | | | | [address];[place], [place] | | | | | | [address] | | | | + + + + + + + + | Specimen | + + | | + + + + + + + | Performing | Address | City/State/Zipcode | Phone Number | | Organization | | | | + + + + + | [facility] | [address] | [place] [address] | [phone] | + + + + + POC Glucose (04/14/2019 11:43 AM PST) + + + + + + | Component | Value | Ref Range | Performed | Pathologist | | | | | At | Signature | + + + + + + | Glucose, | 153 (H)Comment: Testing | 65 - 99 mg/dL | [facility] | | | POC | performed at [facility];[address] | | LABORATORY | | | | [address];[place] | | | | | | [address] | | | | + + + + + + + + | Specimen | + + | | + + + + + + + | Performing | Address | City/State/Zipcode | Phone Number | | Organization | | | | + + + + + | [facility] | [address] | [place] [address] | [phone] | + + + + + ECHO Complete w Contrast (04/14/2019 11:21 AM PST) + +--------+ + + + | Component | Value | Ref Range | Performed | Pathologist | | | | | At | Signature | + +--------+ + + + | LVEF-TTE | 50 | % | [facility] | | | TRANSTHORAC | | | | | | IC ECHO | | | | | + +--------+ + + + | Inferior | 2.67 | cm | [facility] | | | Vena Cava | | | | | | Diameter at | | | | | | Expiration | | | | | + +--------+ + + + | RA PRESSURE | 15 | mmHg | [facility] | | + +--------+ + + + | LVIDd | 4.38 | cm | [facility] | | + +--------+ + + + | FS | 15 | % | [facility] | | + +--------+ + + + | LA volume | 95.49 | mL | [facility] | | + +--------+ + + + | AV mean | 13.63 | mmHg | [facility] | | | gradient | | | | | + +--------+ + + + | Aortic | 2.17 | cm2 | [facility] | | | Valve Area | | | | | | by | | | | | | Continuity | | | | | | VTI | | | | | + +--------+ + + + | MV mean | 7.22 | mmHg | [facility] | | | gradient | | | | | + +--------+ + + + | MV Area by | 2.27 | cm2 | [facility] | | | P 1/2 | | | | | | method | | | | | + +--------+ + + + | MV Area by | 1.86 | cm2 | [facility] | | | Continuity | | | | | | Equation | | | | | + +--------+ + + + | PV peak | 2.92 | mmHg | [facility] | | | gradient | | | | | + +--------+ + + + | LVOT | 2.42 | cm | [facility] | | | diameter | | | | | + +--------+ + + + | LVOT peak | 100.12 | cm/s | [facility] | | | jose roberto | | | | | + +--------+ + + + | LVOT peak | 26.72 | cm | [facility] | | | VTI | | | | | + +--------+ + + + | AV peak jose roberto | 240.91 | cm/s | [facility] | | + +--------+ + + + | AV VTI | 56.64 | cm | [facility] | | + +--------+ + + + | AV peak | 23.22 | mmHg | [facility] | | | gradient | | | | | + +--------+ + + + | MV peak | 16.33 | mmHg | [facility] | | | gradient | | | | | + +--------+ + + + | PV mean | 1.65 | mmHg | [facility] | | | gradient | | | | | + +--------+ + + + | MV Pressure | 96.79 | msec | [facility] | | | 1/2 time | | | | | + +--------+ + + + | LA Volume | 61 | mL/m2 | [facility] | | | Index | | | | | + +--------+ + + + | AV LVOT | 4.01 | mmHg | [facility] | | | Peak | | | | | | Gradient | | | | | + +--------+ + + + | AV LVOT | 2.26 | mmHg | [facility] | | | Mean | | | | | | Gradient | | | | | + +--------+ + + + | PI Peak | 85.51 | cm/s | [facility] | | | Velocity | | | | | + +--------+ + + + | LV | 9.73 | cm | [facility] | | | Diastolic | | | | | | Length 4C | | | | | + +--------+ + + + | RV | 4.16 | cm | [facility] | | | Diastolic | | | | | | Basal | | | | | | Diameter | | | | | + +--------+ + + + | LV | 53 | % | [facility] | | | Beckett's | | | | | | Biplane EF | | | | | + +--------+ + + + | LV ED | 126.35 | ml | [facility] | | | Volume | | | | | | (Beckett's) | | | | | + +--------+ + + + | LV ED | 80 | ml/m2 | [facility] | | | Volume | | | | | | Index | | | | | + +--------+ + + + | LV ES | 58.84 | ml | [facility] | | | Volume | | | | | + +--------+ + + + | LVOT Mean | 71.18 | cm/s | [facility] | | | Velocity | | | | | + +--------+ + + + | MV | 292.28 | msec | [facility] | | | Deceleratio | | | | | | n Time | | | | | + +--------+ + + + | MV E/A | 1.1 | | [facility] | | | Ratio | | | | | + +--------+ + + + | MV Mean | 127.5 | cm/s | [facility] | | | Velocity | | | | | + +--------+ + + + | MV Peak | 139.48 | cm/s | [facility] | | | A-Wave | | | | | + +--------+ + + + | MV Peak | 152.81 | cm/s | [facility] | | | E-Wave | | | | | + +--------+ + + + | PV Mean | 61.18 | cm/s | [facility] | | | Velocity | | | | | + +--------+ + + + | AV Mean | 177.2 | cm/s | [facility] | | | Velocity | | | | | + +--------+ + + + | LA Area | 29.83 | cm2 | [facility] | | + +--------+ + + + | LA Major | 0.5664 | cm | [facility] | | + +--------+ + + + | LV ES | 37 | ml/m2 | [facility] | | | Volume | | | | | | Index | | | | | + +--------+ + + + | Vitals | 83 | | [facility] | | | Heart Rate | | | | | | Rest | | | | | + +--------+ + + + | IVS | 1.35 | cm | [facility] | | | Diastolic | | | | | | Thickness | | | | | | MM | | | | | + +--------+ + + + | LVPW | 1.27 | cm | [facility] | | | Diastolic | | | | | | Thickness | | | | | | MM | | | | | + +--------+ + + + | IVS | 1.38 | cm | [facility] | | | Systolic | | | | | | Thickness | | | | | | MM | | | | | + +--------+ + + + | LV Systolic | 3.71 | cm | [facility] | | | Diameter | | | | | | MM | | | | | + +--------+ + + + | LVPW | 1.45 | cm | [facility] | | | Systolic | | | | | | Thickness | | | | | | MM | | | | | + +--------+ + + + | TAPSE | 2.25 | cm | [facility] | | + +--------+ + + + + + | Specimen | + + | | + + + + + | Narrative | Performed At | + + + | The study | [facility] | | was technically difficult Overall image quality was poor. A | | | contrast agent was administered. Left ventricular systolic function | | | is low normal to mildly reduced. The left ventricular ejection | | | fraction is 50%. There is elevated left atrial pressure and grade II | | | left ventricular diastolic dysfunction. Normal right ventricular | | | systolic function. Severely dilated left atrium. Mildly dilated | | | right atrium. Aortic valve sclerosis without stenosis Mild mitral | | | stenosis. Trace mitral regurgitation. Unable to assess pulmonary | | | artery systolic pressure. There is no pericardial effusion. There | | | appears to be hypokinesis of the distal inferior wall as well as part | | | of the apex of the left ventricle. | | | Trace mitral regurgitation. | | | Unable to assess pulmonary artery systolic pressure. | | | There is no pericardial effusion. | | | There appears to be hypokinesis of the distal inferior wall as well as | | |part of the apex of the left ventricle. | | | | | + + + + +---------+ + + | Performing | Address | City/State/[facility] | Phone Number | | Organization | | | | + +---------+ + + | [facility] | | | | + +---------+ + + POC Glucose (04/14/2019 7:57 AM PST) + + + + + + | Component | Value | Ref Range | Performed | Pathologist | | | | | At | Signature | + + + + + + | Glucose, | 126 (H)Comment: Testing | 65 - 99 mg/dL | [facility] | | | POC | performed at [facility];[address] | | LABORATORY | | | | [address];[place] | | | | | | [address] | | | | + + + + + + + + | Specimen | + + | | + + + + + + + | Performing | Address | City/State/Zipcode | Phone Number | | Organization | | | | + + + + + | [facility] | [address] | [place] [address] | [phone] | + + + + + B Type Natriuretic Peptide (04/14/2019 6:29 AM PST) + + + + + + | Component | Value | Ref Range | Performed | Pathologist | | | | | At | Signature | + + + + + + | BNP | 587.58 (H)Comment: | 0 - 100 pg/mL | [facility] | | | | Testing performed at | | LABORATORY | | | | [facility];[address];[place] [address] | | | | + + + + + + + + | Specimen | + + | | + + + + + + + | Performing | Address | City/State/Zipcode | Phone Number | | Organization | | | | + + + + + | [facility] | [address] | [place] [address] | [phone] | + + + + + CBC with Differential (04/14/2019 6:29 AM PST) + + + + + + | Component | Value | Ref Range | Performed | Pathologist | | | | | At | Signature | + + + + + + | WBC | 9.89 | 3.80 - 11.00 | [facility] | | | | | K/uL | LABORATORY | | + + + + + + | RBC | 3.72 (L) | 4.20 - 5.70 | [facility] | | | | | M/uL | LABORATORY | | + + + + + + | Hemoglobin | 8.0 (L) | 13.2 - 17.0 | [facility] | | | | | g/dL | LABORATORY | | + + + + + + | Hematocrit | 25.4 (L) | 39.0 - 50.0 % | [facility] | | | | | | LABORATORY | | + + + + + + | MCV | 68.5 (L) | 80.0 - 100.0 fl | [facility] | | | | | | LABORATORY | | + + + + + + | MCH | 21.5 (L) | 27.0 - 34.0 pg | [facility] | | | | | | LABORATORY | | + + + + + + | MCHC | 31.3 (L) | 32.0 - 35.5 | [facility] | | | | | g/dL | LABORATORY | | + + + + + + | RDW-SD | 51.2 | 37 - 53 fl | [facility] | | | | | | LABORATORY | | + + + + + + | Platelet | 349 | 150 - 400 K/uL | [facility] | | | Count | | | LABORATORY | | + + + + + + | MPV | 8.1 | fl | [facility] | | | | | | LABORATORY | | + + + + + + | Diff Type | AUTOMATED | | [facility] | | | | | | LABORATORY | | + + + + + + | % | 73.22 | % | [facility] | | | Neutrophils | | | LABORATORY | | + + + + + + | % | 12.24 | % | [facility] | | | Lymphocytes | | | LABORATORY | | + + + + + + | Monocyte % | 13.04 | % | [facility] | | | | | | LABORATORY | | + + + + + + | Eosinophils | 0.64 | % | [facility] | | | % | | | LABORATORY | | + + + + + + | Basophils % | 0.86 | % | [facility] | | | | | | LABORATORY | | + + + + + + | Neutrophils | 7.24 | 1.90 - 7.40 | [facility] | | | , Absolute | | K/uL | LABORATORY | | + + + + + + | Absolute | 1.21 | 1.00 - 3.90 | [facility] | | | Lymphocytes | | K/uL | LABORATORY | | + + + + + + | Absolute | 1.29 (H) | 0.00 - 0.80 | [facility] | | | Monocytes | | K/uL | LABORATORY | | + + + + + + | Eosinophils | 0.06 | 0.00 - 0.50 | [facility] | | | , Absolute | | K/uL | LABORATORY | | + + + + + + | Basophils, | 0.09 | 0.00 - 0.10 | [facility] | | | Absolute | | K/uL | LABORATORY | | + + + + + + | RBC | 1+ | | [facility] | | | Morphology | Comment: | | LABORATORY | | | | ANISO | | | | | | 3+ | | | | | | MICRO | | | | | | PLATELET ANISOCYTOSIS | | | | | | 1+ | | | | | | HYPO | | | | | | | | | | + + + + + + | Platelet | ADEQUATEComment: Testing | | [facility] | | | Estimate | performed at [facility] | | LABORATORY | | | | Kiara Jaramillo;[place], [place] | | | | | | [address] | | | | + + + + + + + + | Specimen | + + | | + + + + + + + | Performing | Address | City/State/Zipcode | Phone Number | | Organization | | | | + + + + + | [facility] | [address] | [place] [address] | [phone] | + + + + + Troponin I (04/14/2019 6:29 AM PST) + + + + + + | Component | Value | Ref Range | Performed | Pathologist | | | | | At | Signature | + + + + + + | Troponin I | 0.014Comment: 0.04 | 0.00 - 0.04 | [facility] | | | | ng/mL or less | ng/mL | LABORATORY | | | | Negative, repeat | | | | | | testing in four to six | | | | | | hour ifclinically | | | | | | indicted0.05 to 0.77 | | | | | | ng/mL | | | | | | Suspicious for | | | | | | myocardial injury. | | | | | | Serial measurementsmay | | | | | | be necessary to confirm | | | | | | or exclude the diagnosis | | | | | | of acute | | | | | | coronarysyndrome. Repeat | | | | | | testing in four to six | | | | | | hours if indicated.0.78 | | | | | | or greater ng/mL | | | | | | Consistent with | | | | | | myocardial injury. | | | | | | Clinical andlaboratory | | | | | | correlation recommended. | | | | | | Testing performed at | | | | | | [facility];[address];[place] [address] | | | | + + + + + + + + | Specimen | + + | Blood | + + + + + + + | Performing | Address | City/State/Zipcode | Phone Number | | Organization | | | | + + + + + | [facility] | [address] | [place] [address] | [phone] | + + + + + Basic Metabolic Panel (04/14/2019 5:09 AM PST) + + + + + + | Component | Value | Ref Range | Performed | Pathologist | | | | | At | Signature | + + + + + + | Na | 137 | 135 - 145 | [facility] | | | | | mmol/L | LABORATORY | | + + + + + + | K | 4.2 | 3.5 - 4.9 | [facility] | | | | | mmol/L | LABORATORY | | + + + + + + | Cl | 101 | 99 - 109 mmol/L | [facility] | | | | | | LABORATORY | | + + + + + + | CO2 | 30 | 23 - 32 mmol/L | [facility] | | | | | | LABORATORY | | + + + + + + | Anion Gap | 10 | 5 - 20 mmol/L | [facility] | | | | | | LABORATORY | | + + + + + + | Glucose | 123 (H) | 65 - 99 mg/dL | [facility] | | | | | | LABORATORY | | + + + + + + | BUN | 10 | 8 - 25 mg/dL | [facility] | | | | | | LABORATORY | | + + + + + + | Creatinine | 0.74 | 0.70 - 1.30 | [facility] | | | | | mg/dL | LABORATORY | | + + + + + + | BUN/Creatin | 14 | | [facility] | | | ine Ratio | | | LABORATORY | | + + + + + + | Calcium | 8.0 (L) | 8.5 - 10.5 | [facility] | | | | | mg/dL | LABORATORY | | + + + + + + | Estimated | >60Comment: GFR <60: | >60 | [facility] | | | GFR | CHRONIC KIDNEY DISEASE, | mL/min/1.73m2 | LABORATORY | | | | IF FOUND OVER A 3 MONTH | | | | | | PERIOD.GFR <15: KIDNEY | | | | | | FAILURE.FOR | | | | | | AMERICANS, MULTIPLY THE | | | | | | CALCULATED GFR BY | | | | | | 1.210.This eGFR is | | | | | | calculated using the | | | | | | [facility] traceable | | | | | | equation.Testing | | | | | | performed at [facility];[address] | | | | | | [address] [facility];[place], [place] | | | | | | [address] | | | | + + + + + + + + | Specimen | + + | Blood | + + + + + + + | Performing | Address | City/State/Zipcode | Phone Number | | Organization | | | | + + + + + | [facility] | [address] | [place] [address] | [phone] | + + + + + Vancomycin Level (04/14/2019 4:53 AM PST) + + + + + + | Component | Value | Ref Range | Performed | Pathologist | | | | | At | Signature | + + + + + + | Vancomycin | 20.6Comment: Testing | ug/mL | [facility] | | | Random, | performed at [facility];[address] | | LABORATORY | | | Serum | [facility];[place], [place] | | | | | | [address] | | | | + + + + + + + + | Specimen | + + | Blood | + + + + + + + | Performing | Address | City/State/Zipcode | Phone Number | | Organization | | | | + + + + + | [facility] | [address] | [place] [address] | [phone] | + + + + + POC Glucose (04/14/2019 1:46 AM PST) + + + + + + | Component | Value | Ref Range | Performed | Pathologist | | | | | At | Signature | + + + + + + | Glucose, | 166 (H)Comment: Testing | 65 - 99 mg/dL | [facility] | | | POC | performed at [facility];[address] | | LABORATORY | | | | [address];[place] | | | | | | [address] | | | | + + + + + + + + | Specimen | + + | | + + + + + + + | Performing | Address | City/State/Zipcode | Phone Number | | Organization | | | | + + + + + | [facility] | [address] | [place] [address] | [phone] | + + + + + Troponin I (04/14/2019 1:19 AM PST) + + + + + + | Component | Value | Ref Range | Performed | Pathologist | | | | | At | Signature | + + + + + + | Troponin I | 0.015Comment: 0.04 | 0.00 - 0.04 | [facility] | | | | ng/mL or less | ng/mL | LABORATORY | | | | Negative, repeat | | | | | | testing in four to six | | | | | | hour ifclinically | | | | | | indicted0.05 to 0.77 | | | | | | ng/mL | | | | | | Suspicious for | | | | | | myocardial injury. | | | | | | Serial measurementsmay | | | | | | be necessary to confirm | | | | | | or exclude the diagnosis | | | | | | of acute | | | | | | coronarysyndrome. Repeat | | | | | | testing in four to six | | | | | | hours if indicated.0.78 | | | | | | or greater ng/mL | | | | | | Consistent with | | | | | | myocardial injury. | | | | | | Clinical andlaboratory | | | | | | correlation recommended. | | | | | | Testing performed at | | | | | | [facility];[address] | | | | | | [address];[place] [address] | | | | + + + + + + + + | Specimen | + + | Blood | + + + + + + + | Performing | Address | City/State/Zipcode | Phone Number | | Organization | | | | + + + + + | [facility] | [address] | [place] [address] | [phone] | + + + + + ECG 12 lead (04/14/2019 12:12 AM PST) + + + + + + | Component | Value | Ref Range | Performed | Pathologist | | | | | At | Signature | + + + + + + | VENTRICULAR | 62 | BPM | [facility] | | | RATE EKG | | | | | + + + + + + | ATRIAL RATE | 62 | BPM | [facility] | | + + + + + + | P-R | 172 | ms | [facility] | | | INTERVAL | | | | | + + + + + + | QRS | 84 | ms | [facility] | | | DURATION | | | | | + + + + + + | Q-T | 454 | ms | [facility] | | | INTERVAL | | | | | + + + + + + | Q-T | 460 | ms | [facility] | | | INTERVAL | | | | | | (CORRECTED) | | | | | + + + + + + | P WAVE AXIS | 51 | degrees | [facility] | | + + + + + + | QRS AXIS | 49 | degrees | [facility] | | + + + + + + | T AXIS | 52 | degrees | [facility] | | + + + + + + | INTERPRETAT | Normal sinus | | [facility] | | | ION TEXT | rhythmNonspecific ST | | | | | | and/or T wave | | | | | | abnormalitiesThere are | | | | | | nondiagnostic Q waves in | | | | | | 2, 3, and | | | | | | aVF.Borderline ECGWhen | | | | | | compared with ECG of | | | | | | 06-APR-2019 04:10,No | | | | | | significant change since | | | | | | previous ECG Confirmed | | | | | | by JOLEEN GRIGGS MD | | | | | | ([id number]) on 04/14/2019 | | | | | | 8:20:00 AM | | | | + + + + + + + + | Specimen | + + | | + + + + + | Narrative | Performed At | + + + | | | + + + + +---------+ + + | Performing | Address | City/State/Zipcode | Phone Number | | Organization | | | | + +---------+ + + | [facility] | | | | + +---------+ + + POC Glucose (04/13/2019 9:16 PM PST) + + + + + + | Component | Value | Ref Range | Performed | Pathologist | | | | | At | Signature | + + + + + + | Glucose, | 143 (H)Comment: Testing | 65 - 99 mg/dL | [facility] | | | POC | performed at [facility];[address] | | LABORATORY | | | | [address];[place] | | | | | | [address] | | | | + + + + + + + + | Specimen | + + | | + + + + + + + | Performing | Address | City/State/Zipcode | Phone Number | | Organization | | | | + + + + + | [facility] | [address] | [place] [address] | [phone] | + + + + + POC Glucose (04/13/2019 4:19 PM PST) + + + + + + | Component | Value | Ref Range | Performed | Pathologist | | | | | At | Signature | + + + + + + | Glucose, | 109 (H)Comment: Testing | 65 - 99 mg/dL | [facility] | | | POC | performed at [facility];[address] | | LABORATORY | | | | [address];[place] | | | | | | [address] | | | | + + + + + + + + | Specimen | + + | | + + + + + + + | Performing | Address | City/State/Zipcode | Phone Number | | Organization | | | | + + + + + | [facility] | [address] | [place] [address] | [phone] | + + + + + XR Chest AP Portable (04/13/2019 3:50 PM PST) + + | Specimen | + + | | + + + + + | Impressions | Performed At | + + + | CHF with cardiomegaly, interstitial edema and probable pleural | [facility] | | effusions. Signed by: Karine Bergman Jade Sign Date/Time: | | | 04/13/2019 4:41 PM | | + + + + + + | Narrative | Performed At | + + + | CHEST PORTABLE ONE VIEW CLINICAL INFORMATION: Shortness of | [facility] | | breath, evaluate for volume overload COMPARISON: XR CHEST AP | | | PORTABLE (04/09/2019); FINDINGS: AP supine portable technique. | | | Enlarged cardiac silhouette. Engorged central pulmonary vessels. | | | Thickened interstitial markings with peribronchial cuffing | | | throughout. Low lung volumes with atelectasis and probable pleural | | | effusions. | | + + + + + | Procedure Note | + + | Eliel Ornelas Results In - 04/13/2019 4:45 PM PST | | CHEST PORTABLE ONE VIEW | | | | CLINICAL INFORMATION: | | Shortness of breath, evaluate for volume overload | | | | COMPARISON: | | XR CHEST AP PORTABLE (04/09/2019); | | | | FINDINGS: | | AP supine portable technique. Enlarged cardiac silhouette. Engorged | | central pulmonary vessels. Thickened interstitial markings with | | peribronchial cuffing throughout. Low lung volumes with atelectasis | | and probable pleural effusions. | | | | IMPRESSION: | | CHF with cardiomegaly, interstitial edema and probable pleural | | effusions. | | | | | | | | Signed by: Karine Bergman Jade | | Sign Date/Time: 04/13/2019 4:41 PM | + + + +---------+ + + | Performing | Address | City[facility] | Phone Number | | Organization | | | | + +---------+ + + | [facility] | | | | + +---------+ + + IR Angiogram Lower Extremity Right (04/13/2019 3:14 PM PST) + + | Specimen | + + | | + + + + --+ | Narrative | Performed At | + + --+ | LOWER | [facility] | | EXTREMITY ARTERIOGRAM, Unilateral PREOPERATIVE DIAGNOSIS: Critical | | | limb ischemia with wounds bilaterally POSTOPERATIVE DIAGNOSIS: Same | | | PROCEDURE: 1. Moderate conscious sedation2. Ultrasound guided access | | | of the left common femoral artery3. Selective right common femoral | | | artery catheterization with right leg runoff4. Right SFA [employer] | | | crossing and atherectomy using Bard 14 S crossing catheter SURGEON: | | | Simba Cheng MD FOUNDATION DIRECTOR: None ANESTHESIA: Moderate sedation and local | | | anesthesia Informed consent was obtained from the patient. | | | Continuous cardiac monitoring was performed throughout the procedure. | | | Conscious sedation was provided by the nursing staff during the | | | procedure under my supervision. 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 Occlusion | | | was heavily calcific and required 14 S crossing catheter to cross | | | calcific lesion. However, catheter only passed in subintimal manner. | | | Attempted reentry of wire into true lumen using an Outback catheter | | | but this proved unsuccessful. There was poor filling of the | | | tibioperoneal trunk due to contrast washout. Will need either a | | | right common femoral to popliteal bypass versus right common femoral | | | to peroneal artery bypass. Will get cardiac clearance prior to | | | surgery. DESCRIPTION OF PROCEDURE: The patient was properly | | | identified and brought to the Floor Inspector. The patient was placed supine | | | on the catheter table and patient was given moderate sedation by | | | nursing staff under my supervision. Patient's bilateral groins were | | | then prepped and draped in the usual sterile fashion. Local anesthetic | | | was given to the left groin and the left common femoral artery was | | | accessed under ultrasound guidance using a micropuncture needle. A | | | micropuncture sheath was inserted over a wire and up sized to a 4 | | | Scottish sheath. A Omni flush catheter was then inserted into the distal | | | aorta and the Omni Flush catheter was then used to guide a Glidewire | | | into the right common femoral artery and then the catheter was then | | | advanced over the wire. A right lower extremity runoff was then | | | performed with the findings as described above. Next, an Amplatzer | | | wire was then inserted over the catheter and the 4 Scottish sheath was | | | removed. A 7 Scottish destination sheath was then inserted over the wire | | | with the tip of the sheath being placed into the right common femoral | | | artery. A vertebral catheter was inserted over the wire and the wire | | | was then removed. A Glidewire was then placed into the vertebral | | | catheter and used to attempt crossing of occluded left SFA. Upper, | | | due to heavy calcium, wire would not passed through occlusion. | | | Therefore, a 14 S catheter was used to cross and atherectomized the | | | heavily calcific SFA lesion. However, catheter passed in a | | | subintimal manner and reentry into the true lumen was attempted with | | | Outback catheter which proved unsuccessful. A final arteriogram was | | | then performed through the sheath. The destination sheath was then | | | removed and a Mynx closure device was then used on the left common | | | femoral artery and hemostasis was ensured. The patient was then taken | | | to the observation unit for further monitoring. IMPRESSION: 1. 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 Reconstitution of popliteal artery by collaterals but | | | poor filling of tibioperoneal trunk due to contrast washout.3. | | | Single-vessel runoff via right peroneal artery to right foot.4. | | | Will need either right femoropopliteal bypass graft versus right | | | femoral to peroneal artery bypass. | | |over the wire with the tip of the sheath being placed into the right | | |common femoral artery. A vertebral catheter was inserted over the wire and | | |the wire was then removed. A Glidewire was then placed into the vertebral | | |catheter and used to attempt crossing of occluded left SFA. Upper, due to | | |heavy calcium, wire would not passed through occlusion. Therefore, a 14 S | | |catheter was used to cross and atherectomized the heavily calcific SFA | | |lesion. However, catheter passed in a subintimal manner and reentry into | | |the true lumen was attempted with Outback catheter which proved | | |unsuccessful. | | | | | |A final arteriogram was then performed through the sheath. The destination | | |sheath was then removed and a Mynx closure device was then used on the | | |left common femoral artery and hemostasis was ensured. The patient was | | |then taken to the observation unit for further monitoring. | | | | | |IMPRESSION: | | | | | |1. 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 | | |2. Reconstitution of popliteal artery by collaterals but poor filling of | | |tibioperoneal trunk due to contrast washout. | | |3. Single-vessel runoff via right peroneal artery to right foot. | | |4. Will need either right femoropopliteal bypass graft versus right | | |femoral to peroneal artery bypass. | | + + --+ + +---------+ + + | Performing | Address | City/State/Zipcode | Phone Number | | Organization | | | | + +---------+ + + | [facility] | | | | + +---------+ + + POC Glucose (04/13/2019 11:49 AM PST) + + + + + + | Component | Value | Ref Range | Performed | Pathologist | | | | | At | Signature | + + + + + + | Glucose, | 135 (H)Comment: Testing | 65 - 99 mg/dL | [facility] | | | POC | performed at [facility];[address] | | LABORATORY | | | | [address];[place] | | | | | | [address] | | | | + + + + + + + + | Specimen | + + | | + + + + + + + | Performing | Address | City/State/Zipcode | Phone Number | | Organization | | | | + + + + + | [facility] | [address] | [place] [address] | [phone] | + + + + + POC Glucose (04/13/2019 7:59 AM PST) + + + + + + | Component | Value | Ref Range | Performed | Pathologist | | | | | At | Signature | + + + + + + | Glucose, | 124 (H)Comment: Testing | 65 - 99 mg/dL | [facility] | | | POC | performed at [facility];[address] | | LABORATORY | | | | [address];[place] | | | | | | [address] | | | | + + + + + + + + | Specimen | + + | | + + + + + + + | Performing | Address | City/State/Zipcode | Phone Number | | Organization | | | | + + + + + | [facility] | [address] | [place] [address] | [phone] | + + + + + Basic Metabolic Panel (04/13/2019 6:38 AM PST) + + + + + + | Component | Value | Ref Range | Performed | Pathologist | | | | | At | Signature | + + + + + + | Na | 137 | 135 - 145 | [facility] | | | | | mmol/L | LABORATORY | | + + + + + + | K | 3.8 | 3.5 - 4.9 | [facility] | | | | | mmol/L | LABORATORY | | + + + + + + | Cl | 101 | 99 - 109 mmol/L | [facility] | | | | | | LABORATORY | | + + + + + + | CO2 | 33 (H) | 23 - 32 mmol/L | [facility] | | | | | | LABORATORY | | + + + + + + | Anion Gap | 7 | 5 - 20 mmol/L | [facility] | | | | | | LABORATORY | | + + + + + + | Glucose | 113 (H) | 65 - 99 mg/dL | [facility] | | | | | | LABORATORY | | + + + + + + | BUN | 18 | 8 - 25 mg/dL | [facility] | | | | | | LABORATORY | | + + + + + + | Creatinine | 0.7 | 0.70 - 1.30 | [facility] | | | | | mg/dL | LABORATORY | | + + + + + + | BUN/Creatin | 26 | | [facility] | | | ine Ratio | | | LABORATORY | | + + + + + + | Calcium | 8.2 (L) | 8.5 - 10.5 | [facility] | | | | | mg/dL | LABORATORY | | + + + + + + | Estimated | >60Comment: GFR <60: | >60 | [facility] | | | GFR | CHRONIC KIDNEY DISEASE, | mL/min/1.73m2 | LABORATORY | | | | IF FOUND OVER A 3 MONTH | | | | | | PERIOD.GFR <15: KIDNEY | | | | | | FAILURE.FOR | | | | | | AMERICANS, MULTIPLY THE | | | | | | CALCULATED GFR BY | | | | | | 1.210.This eGFR is | | | | | | calculated using the | | | | | | MDRD IDMS traceable | | | | | | equation.Testing | | | | | | performed at [facility], [address] | | | | | | [address], | | | | | | [place] [address] | | | | + + + + + + + + | Specimen | + + | Blood | + + + + + + + | Performing | Address | City/State/Zipcode | Phone Number | | Organization | | | | + + + + + | [facility] | [address] | [place] [address] | [phone] | + + + + + CBC with Differential (04/13/2019 6:38 AM PST) + + +---- + + + | Component | Value | Ref Range | Performed | Pathologist | | | | | At | Signature | + + +---- + + + | WBC | 11.15 (H) | 3.8 0 - 11.00 | [facility] | | | | | K/u L | LABORATORY | | + + +---- + + + | RBC | 3.70 (L) | 4.2 0 - 5.70 | [facility] | | | | | M/u L | LABORATORY | | + + +---- + + + | Hemoglobin | 8.0 (L) | 13. 2 - 17.0 | [facility] | | | | | g/d L | LABORATORY | | + + +---- + + + | Hematocrit | 25.5 (L) | 39. 0 - 50.0 % | [facility] | | | | | | LABORATORY | | + + +---- + + + | MCV | 68.8 (L) | 80. 0 - 100.0 fl | [facility] | | | | | | LABORATORY | | + + +---- + + + | MCH | 21.6 (L) | 27. 0 - 34.0 pg | [facility] | | | | | | LABORATORY | | + + +---- + + + | MCHC | 31.5 (L) | 32. 0 - 35.5 | [facility] | | | | | g/d L | LABORATORY | | + + +---- + + + | RDW-SD | 51.2 | 37 - 53 fl | [facility] | | | | | | LABORATORY | | + + +---- + + + | Platelet | 359 | 150 - 400 K/uL | [facility] | | | Count | | | LABORATORY | | + + +---- + + + | MPV | 8.5 | fl | [facility] | | | | | | LABORATORY | | + + +---- + + + | Diff Type | AUTOMATED | | [facility] | | | | | | LABORATORY | | + + +---- + + + | % | 75.90 | % | [facility] | | | Neutrophils | | | LABORATORY | | + + +---- + + + | % | 10.49 | % | [facility] | | | Lymphocytes | | | LABORATORY | | + + +---- + + + | Monocyte % | 11.55 | % | [facility] | | | | | | LABORATORY | | + + +---- + + + | Eosinophils | 1.38 | % | [facility] | | | % | | | LABORATORY | | + + +---- + + + | Basophils % | 0.68 | % | [facility] | | | | | | LABORATORY | | + + +---- + + + | Neutrophils | 8.46 (H) | 1.9 0 - 7.40 | [facility] | | | , Absolute | | K/u L | LABORATORY | | + + +---- + + + | Absolute | 1.17 | 1.0 0 - 3.90 | [facility] | | | Lymphocytes | | K/u L | LABORATORY | | + + +---- + + + | Absolute | 1.29 (H) | 0.0 0 - 0.80 | [facility] | | | Monocytes | | K/u L | LABORATORY | | + + +---- + + + | Eosinophils | 0.15 | 0.0 0 - 0.50 | [facility] | | | , Absolute | | K/u L | LABORATORY | | + + +---- + + + | Basophils, | 0.08 | 0.0 0 - 0.10 | [facility] | | | Absolute | | K/u L | LABORATORY | | + + +---- + + + | RBC | 1+Comment: | | [facility] | | | Morphology | ANISO2+HYPO2+MICRONORMAL | | LABORATORY | | | | PLT MORPHTesting | | | | | | performed at [facility], [facility] [address] | | | | | | [facility], | | | | | | [place] [address] | | | | | |MICRO | | | | | |NORMAL PLT MORPH | | | | | |Testing performed at [facility], [facility] [place] [address] | | | | | | | | | | + + +---- + + + + + | Specimen | + + | Blood | + + + + + + + | Performing | Address | City/State/Zipcode | Phone Number | | Organization | | | | + + + + + | [facility] | [address] | [place] [address] | [phone] | + + + + + POC Glucose (04/13/2019 3:30 AM PST) + + + + + + | Component | Value | Ref Range | Performed | Pathologist | | | | | At | Signature | + + + + + + | Glucose, | 147 (H)Comment: Testing | 65 - 99 mg/dL | [facility] | | | POC | performed at [facility];[address] | | LABORATORY | | | | [address];[place], [place] | | | | | | [address] | | | | + + + + + + + + | Specimen | + + | | + + + + + + + | Performing | Address | City/State/Zipcode | Phone Number | | Organization | | | | + + + + + | [facility] | [address] | [place] [address] | [phone] | + + + + + POC Glucose (04/12/2019 9:14 PM PST) + + + + + + | Component | Value | Ref Range | Performed | Pathologist | | | | | At | Signature | + + + + + + | Glucose, | 183 (H)Comment: Testing | 65 - 99 mg/dL | [facility] | | | POC | performed at [facility];[address] | | LABORATORY | | | | [address];[place], [place] | | | | | | [address] | | | | + + + + + + + + | Specimen | + + | | + + + + + + + | Performing | Address | City/State/Zipcode | Phone Number | | Organization | | | | + + + + + | [facility] | [address] | [place] [address] | [phone] | + + + + + POC Glucose (04/12/2019 4:28 PM PST) + + + + + + | Component | Value | Ref Range | Performed | Pathologist | | | | | At | Signature | + + + + + + | Glucose, | 211 (H)Comment: Testing | 65 - 99 mg/dL | [facility] | | | POC | performed at [facility];[address] | | LABORATORY | | | | [address];[place] | | | | | | [address] | | | | + + + + + + + + | Specimen | + + | | + + + + + + + | Performing | Address | City/State/Zipcode | Phone Number | | Organization | | | | + + + + + | [facility] | [address] | [place] [address] | [phone] | + + + + + POC Glucose (04/12/2019 11:53 AM PST) + + + + + + | Component | Value | Ref Range | Performed | Pathologist | | | | | At | Signature | + + + + + + | Glucose, | 162 (H)Comment: Testing | 65 - 99 mg/dL | [facility] | | | POC | performed at [facility];[address] | | LABORATORY | | | | [address];[place], [place] | | | | | | [address] | | | | + + + + + + + + | Specimen | + + | | + + + + + + + | Performing | Address | City/State/Zipcode | Phone Number | | Organization | | | | + + + + + | [facility] | [address] | [place] [address] | [phone] | + + + + + POC Glucose (04/12/2019 7:56 AM PST) + + + + + + | Component | Value | Ref Range | Performed | Pathologist | | | | | At | Signature | + + + + + + | Glucose, | 171 (H)Comment: Testing | 65 - 99 mg/dL | [facility] | | | POC | performed at [facility];[address] | | LABORATORY | | | | [address];[place], [place] | | | | | | [address] | | | | + + + + + + + + | Specimen | + + | | + + + + + + + | Performing | Address | City/State/Zipcode | Phone Number | | Organization | | | | + + + + + | [facility] | [address] | [place] [address] | [phone] | + + + + + Basic Metabolic Panel (04/12/2019 6:20 AM PST) + + + + + + | Component | Value | Ref Range | Performed | Pathologist | | | | | At | Signature | + + + + + + | Na | 136 | 135 - 145 | [facility] | | | | | mmol/L | LABORATORY | | + + + + + + | K | 3.7 | 3.5 - 4.9 | [facility] | | | | | mmol/L | LABORATORY | | + + + + + + | Cl | 100 | 99 - 109 mmol/L | [facility] | | | | | | LABORATORY | | + + + + + + | CO2 | 33 (H) | 23 - 32 mmol/L | [facility] | | | | | | LABORATORY | | + + + + + + | Anion Gap | 7 | 5 - 20 mmol/L | [facility] | | | | | | LABORATORY | | + + + + + + | Glucose | 140 (H) | 65 - 99 mg/dL | [facility] | | | | | | LABORATORY | | + + + + + + | BUN | 21 | 8 - 25 mg/dL | [facility] | | | | | | LABORATORY | | + + + + + + | Creatinine | 0.8 | 0.70 - 1.30 | [facility] | | | | | mg/dL | LABORATORY | | + + + + + + | BUN/Creatin | 26 | | [facility] | | | ine Ratio | | | LABORATORY | | + + + + + + | Calcium | 8.2 (L) | 8.5 - 10.5 | [facility] | | | | | mg/dL | LABORATORY | | + + + + + + | Estimated | >60Comment: GFR <60: | >60 | [facility] | | | GFR | CHRONIC KIDNEY DISEASE, | mL/min/1.73m2 | LABORATORY | | | | IF FOUND OVER A 3 MONTH | | | | | | PERIOD.GFR <15: KIDNEY | | | | | | FAILURE.FOR | | | | | | AMERICANS, MULTIPLY THE | | | | | | CALCULATED GFR BY | | | | | | 1.210.This eGFR is | | | | | | calculated using the | | | | | | MDRD IDUT traceable | | | | | | equation.Testing | | | | | | performed at [facility], [address] | | | | | | [facility], | | | | | | [place] [address] | | | | + + + + + + + + | Specimen | + + | Blood | + + + + + + + | Performing | Address | City/State/Zipcode | Phone Number | | Organization | | | | + + + + + | [facility] | [address] | [place] [address] | [phone] | + + + + + CBC with Differential (04/12/2019 6:20 AM PST) + + +---- + + + | Component | Value | Ref Range | Performed | Pathologist | | | | | At | Signature | + + +---- + + + | WBC | 10.54 | 3.8 0 - 11.00 | [facility] | | | | | K/u L | LABORATORY | | + + +---- + + + | RBC | 3.74 (L) | 4.2 0 - 5.70 | [facility] | | | | | M/u L | LABORATORY | | + + +---- + + + | Hemoglobin | 8.0 (L) | 13. 2 - 17.0 | [facility] | | | | | g/d L | LABORATORY | | + + +---- + + + | Hematocrit | 25.4 (L) | 39. 0 - 50.0 % | [facility] | | | | | | LABORATORY | | + + +---- + + + | MCV | 67.9 (L) | 80. 0 - 100.0 fl | [facility] | | | | | | LABORATORY | | + + +---- + + + | [facility] | 21.5 (L) | 27. 0 - 34.0 pg | [facility] | | | | | | LABORATORY | | + + +---- + + + | MCHC | 31.6 (L) | 32. 0 - 35.5 | [facility] | | | | | g/d L | LABORATORY | | + + +---- + + + | RDW-SD | 50.8 | 37 - 53 fl | [facility] | | | | | | LABORATORY | | + + +---- + + + | Platelet | 328 | 150 - 400 K/uL | [facility] | | | Count | | | LABORATORY | | + + +---- + + + | MPV | 7.9 | fl | [facility] | | | | | | LABORATORY | | + + +---- + + + | Diff Type | AUTOMATED | | [facility] | | | | | | LABORATORY | | + + +---- + + + | % | 70.13 | % | [facility] | | | Neutrophils | | | LABORATORY | | + + +---- + + + | % | 15.96 | % | [facility] | | | Lymphocytes | | | LABORATORY | | + + +---- + + + | Monocyte % | 11.68 | % | [facility] | | | | | | LABORATORY | | + + +---- + + + | Eosinophils | 1.53 | % | [facility] | | | % | | | LABORATORY | | + + +---- + + + | Basophils % | 0.70 | % | [facility] | | | | | | LABORATORY | | + + +---- + + + | Neutrophils | 7.40 | 1.9 0 - 7.40 | [facility] | | | , Absolute | | K/u L | LABORATORY | | + + +---- + + + | Absolute | 1.68 | 1.0 0 - 3.90 | [facility] | | | Lymphocytes | | K/u L | LABORATORY | | + + +---- + + + | Absolute | 1.23 (H) | 0.0 0 - 0.80 | [facility] | | | Monocytes | | K/u L | LABORATORY | | + + +---- + + + | Eosinophils | 0.16 | 0.0 0 - 0.50 | [facility] | | | , Absolute | | K/u L | LABORATORY | | + + +---- + + + | Basophils, | 0.07 | 0.0 0 - 0.10 | [facility] | | | Absolute | | K/u L | LABORATORY | | + + +---- + + + | RBC | 1+Comment: | | [facility] | | | Morphology | ANISO2+HYPO2+MICRONORMAL | | LABORATORY | | | | PLT MORPHTesting | | | | | | performed at [facility], [facility] [address] | | | | | | [facility], | | | | | | [place] [address] | | | | | |MICRO | | | | | |NORMAL PLT MORPH | | | | | |Testing performed at [facility], [facility] [place] [address] | | | | | | | | | | + + +---- + + + + + | Specimen | + + | Blood | + + + + + + + | Performing | Address | City/State/Zipcode | Phone Number | | Organization | | | | + + + + + | [facility] | [address] | [place] [address] | [phone] | + + + + + POC Glucose (04/11/2019 9:20 PM PST) + + + + + + | Component | Value | Ref Range | Performed | Pathologist | | | | | At | Signature | + + + + + + | Glucose, | 199 (H)Comment: Testing | 65 - 99 mg/dL | [facility] | | | POC | performed at [facility];[address] | | LABORATORY | | | | [address];[place] | | | | | | [address] | | | | + + + + + + + + | Specimen | + + | | + + + + + + + | Performing | Address | City/State/Zipcode | Phone Number | | Organization | | | | + + + + + | [facility] | [address] | [place] [address] | [phone] | + + + + + POC Glucose (04/11/2019 6:01 PM PST) + + + + + + | Component | Value | Ref Range | Performed | Pathologist | | | | | At | Signature | + + + + + + | Glucose, | 206 (H)Comment: Testing | 65 - 99 mg/dL | [facility] | | | POC | performed at [facility];[address] | | LABORATORY | | | | [address];[place] | | | | | | [address] | | | | + + + + + + + + | Specimen | + + | | + + + + + + + | Performing | Address | City/State/Zipcode | Phone Number | | Organization | | | | + + + + + | [facility] | [address] | [place] [address] | [phone] | + + + + + POC Glucose (04/11/2019 3:22 PM PST) + + + + + + | Component | Value | Ref Range | Performed | Pathologist | | | | | At | Signature | + + + + + + | Glucose, | 168 (H)Comment: Testing | 65 - 99 mg/dL | [facility] | | | POC | performed at [facility];[address] | | LABORATORY | | | | [address];[place] | | | | | | [address] | | | | + + + + + + + + | Specimen | + + | | + + + + + + + | Performing | Address | City/State/Zipcode | Phone Number | | Organization | | | | + + + + + | [facility] | [address] | [place] [address] | [phone] | + + + + + IR Angiogram Lower Extremity Left (04/11/2019 1:58 PM PST) + + | Specimen | + + | | + + + + --+ | Narrative | Performed At | + + --+ | LOWER | [facility] | | EXTREMITY ARTERIOGRAM, Unilateral PREOPERATIVE DIAGNOSIS: 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 Moderate conscious sedation2. Ultrasound guided access | | | of the right common femoral artery3. Aortogram4. Selective left | | | common femoral artery catheterization with left leg runoff5. Left | | | tibioperoneal trunk and peroneal artery atherectomy using 2 mm | | | Rotablator6. Left tibioperoneal trunk and peroneal artery | | | angioplasty using 2.5 x 220 mm angioplasty balloon7. Left anterior | | | tibial artery atherectomy using 2 mm Rotablator8. Left anterior | | | tibial artery angioplasty using 2.5 x 220 mm angioplasty balloon9. | | | Left SFA and popliteal artery angioplasty using 6 x 150 mm | | | angioplasty [id number]. Left SFA stenting using 7 x 120 mm | | | self-expanding stent SURGEON: Simba Cheng MD [facility] DIRECTOR: None ANESTHESIA: | | | Moderate sedation and local anesthesia Informed consent was | | | obtained from the patient. Continuous cardiac monitoring was performed | | | throughout the procedure. Conscious sedation was provided by the | | | nursing staff during the procedure under my supervision. | | | Sedation time: 63 minutes Medications: 2 mg Versed IV, 75 | | | Mcg Fentanyl IV ESTIMATED BLOOD LOSS: Minimal CONTRAST: 51 mL of | | | Omnipaque 240 INDICATIONS: See preoperative history and physical | | | FINDINGS: Mild stenosis of the bilateral common iliac arteries. Left | | | SFA with tandem, near occlusive stenoses. There was occlusion of | | | all 3 tibial arteries with reconstitution of peroneal artery and | | | anterior tibial artery and mid calf. After atherectomy and | | | angioplasty, good two-vessel runoff seen to left foot. Due to bulky | | | disease in left SFA, required left SFA stenting with good angiographic | | | results. DESCRIPTION OF PROCEDURE: The patient was properly | | | identified and brought to the Floor Inspector. The patient was placed supine | | | on the catheter table and patient was given moderate sedation by | | | nursing staff under my supervision. Patient's bilateral groins were | | | then prepped and draped in the usual sterile fashion. Local anesthetic | | | was given to the right groin and the right common femoral artery was | | | accessed under ultrasound guidance using a micropuncture needle. A | | | micropuncture sheath was inserted over a wire and up sized to a 4 | | | Scottish sheath. A Omni flush catheter was then inserted into the distal | | | aorta and aortogram was then performed with the findings as described | | | above. The Omni Flush catheter was then used to guide a Glidewire | | | into the left common femoral artery and then the catheter was then | | | advanced over the wire. A left lower extremity runoff was then | | | performed with the findings as described above. Next, an Amplatzer | | | wire was then inserted over the catheter and the 4 Scottish sheath was | | | removed. A 7 Scottish destination sheath was then inserted over the wire | | | with the tip of the sheath being placed into the left common femoral | | | artery. A vertebral catheter was inserted over the wire and the wire | | | was then removed. A Glidewire was then placed into the vertebral | | | catheter and used to cross through the occluded proximal left | | | tibioperoneal trunk and peroneal artery. Next, 0.009 wire was passed | | | to the catheter with the tip of the wire in the distal peroneal | | | artery. Atherectomy of the left tibioperoneal trunk and peroneal | | | artery was then performed using 2 mm Rotablator. These arteries were | | | then postdilated using 2.5 x 220 mm angioplasty balloon. Next, the | | | left anterior tibial artery occlusion was then crossed using a | | | Glidewire and Bisbee catheter. A 0.009 wire was then passed through | | | the catheter and into the distal anterior tibial artery. | | | Atherectomy of the left anterior tibial artery was then performed | | | using the 2 mm Rotablator and postdilated using 2.5 x 220 mm | | | angioplasty balloon. The left SFA and popliteal artery were then | | | angioplastied using 6 x 150 mm angioplasty balloon. Due to bulky | | | plaque, the left SFA was then stented using 7 x 120 mm self-expanding | | | stent. A final arteriogram was then performed through the sheath. The | | | destination sheath was then removed and a Mynx closure device was then | | | used on the right common femoral artery and hemostasis was ensured. | | | The patient was then taken to the observation unit for further | | | monitoring. IMPRESSION: 1. Mild stenoses of bilateral common iliac | | | arteries.2. Left SFA with tandem, near occlusive stenoses.3. There | | | was occlusion of all 3 tibial arteries with reconstitution of | | | peroneal artery and anterior tibial artery in mid calf.4. After | | | atherectomy and angioplasty, good two-vessel runoff seen to left | | | foot.5. Due to bulky disease, left SFA required angioplasty and | | | stenting with good angiographic results. | | |Atherectomy of the left tibioperoneal trunk and peroneal artery was then | | |performed using 2 mm Rotablator. These arteries were then postdilated | | |using 2.5 x 220 mm angioplasty balloon. | | | | | |Next, the left anterior tibial artery occlusion was then crossed using a | | |Glidewire and Bisbee catheter. A 0.009 wire was then passed through the | | |catheter and into the distal anterior tibial artery. Atherectomy of the | | |left anterior tibial artery was then performed using the 2 mm Rotablator | | |and postdilated using 2.5 x 220 mm angioplasty balloon. The left SFA and | | |popliteal artery were then angioplastied using 6 x 150 mm angioplasty | | |balloon. Due to bulky plaque, the left SFA was then stented using 7 x 120 | | |mm self-expanding stent. | | | | | |A final arteriogram was then performed through the sheath. The destination | | |sheath was then removed and a Mynx closure device was then used on the | | |right common femoral artery and hemostasis was ensured. The patient was | | |then taken to the observation unit for further monitoring. | | | | | |IMPRESSION: | | | | | |1. 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 | | |2. Left SFA with tandem, near occlusive stenoses. | | |3. There was occlusion of all 3 tibial arteries with reconstitution of | | |peroneal artery and anterior tibial artery in mid calf. | | |4. After atherectomy and angioplasty, good two-vessel runoff seen to left | | |foot. | | |5. Due to bulky disease, left SFA required angioplasty and stenting with | | |good angiographic results. | | | | | + + --+ + +---------+ + + | Performing | Address | City/State/Zipcode | Phone Number | | Organization | | | | + +---------+ + + | [facility] | | | | + +---------+ + + POC Glucose (04/11/2019 8:29 AM PST) + + + + + + | Component | Value | Ref Range | Performed | Pathologist | | | | | At | Signature | + + + + + + | Glucose, | 217 (H)Comment: Testing | 65 - 99 mg/dL | [facility] | | | POC | performed at [facility];[address] | | LABORATORY | | | | [address];[place], [place] | | | | | | [address] | | | | + + + + + + + + | Specimen | + + | | + + + + + + + | Performing | Address | City/State/Zipcode | Phone Number | | Organization | | | | + + + + + | [facility] | [address] | [place] [address] | [phone] | + + + + + B Type Natriuretic Peptide (04/11/2019 5:48 AM PST) + + + + + + | Component | Value | Ref Range | Performed | Pathologist | | | | | At | Signature | + + + + + + | BNP | 220.45 (H)Comment: | 0 - 100 pg/mL | [facility] | | | | Testing performed at | | LABORATORY | | | | [facility];[address];[place] [address] | | | | + + + + + + + + | Specimen | + + | Blood | + + + + + + + | Performing | Address | City/State/Zipcode | Phone Number | | Organization | | | | + + + + + | [facility] | [address] | [place] [address] | [phone] | + + + + + Basic Metabolic Panel (04/11/2019 5:48 AM PST) + + + + + + | Component | Value | Ref Range | Performed | Pathologist | | | | | At | Signature | + + + + + + | Na | 133 (L) | 135 - 145 | [facility] | | | | | mmol/L | LABORATORY | | + + + + + + | K | 3.8 | 3.5 - 4.9 | [facility] | | | | | mmol/L | LABORATORY | | + + + + + + | Cl | 97 (L) | 99 - 109 mmol/L | [facility] | | | | | | LABORATORY | | + + + + + + | CO2 | 32 | 23 - 32 mmol/L | [facility] | | | | | | LABORATORY | | + + + + + + | Anion Gap | 8 | 5 - 20 mmol/L | [facility] | | | | | | LABORATORY | | + + + + + + | Glucose | 158 (H) | 65 - 99 mg/dL | [facility] | | | | | | LABORATORY | | + + + + + + | BUN | 26 (H) | 8 - 25 mg/dL | [facility] | | | | | | LABORATORY | | + + + + + + | Creatinine | 0.9 | 0.70 - 1.30 | [facility] | | | | | mg/dL | LABORATORY | | + + + + + + | BUN/Creatin | 29 | | [facility] | | | ine Ratio | | | LABORATORY | | + + + + + + | Calcium | 8.1 (L) | 8.5 - 10.5 | [facility] | | | | | mg/dL | LABORATORY | | + + + + + + | Estimated | >60Comment: GFR <60: | >60 | [facility] | | | GFR | CHRONIC KIDNEY DISEASE, | mL/min/1.73m2 | LABORATORY | | | | IF FOUND OVER A 3 MONTH | | | | | | PERIOD.GFR <15: KIDNEY | | | | | | FAILURE.FOR | | | | | | AMERICANS, MULTIPLY THE | | | | | | CALCULATED GFR BY | | | | | | 1.210.This eGFR is | | | | | | calculated using the | | | | | | MDRD IDMS traceable | | | | | | equation.Testing | | | | | | performed at [facility], [address] | | | | | | [address], | | | | | | [place] [address] | | | | + + + + + + + + | Specimen | + + | Blood | + + + + + + + | Performing | Address | City/State/Zipcode | Phone Number | | Organization | | | | + + + + + | [facility] | [address] | [place] [address] | [phone] | + + + + + CBC with Differential (04/11/2019 5:48 AM PST) + + +---- + + + | Component | Value | Ref Range | Performed | Pathologist | | | | | At | Signature | + + +---- + + + | WBC | 12.50 (H) | 3.8 0 - 11.00 | [facility] | | | | | K/u L | LABORATORY | | + + +---- + + + | RBC | 4.24 | 4.2 0 - 5.70 | [facility] | | | | | M/u L | LABORATORY | | + + +---- + + + | Hemoglobin | 8.8 (L) | 13. 2 - 17.0 | [facility] | | | | | g/d L | LABORATORY | | + + +---- + + + | Hematocrit | 29.2 (L) | 39. 0 - 50.0 % | [facility] | | | | | | LABORATORY | | + + +---- + + + | MCV | 69.0 (L) | 80. 0 - 100.0 fl | [facility] | | | | | | LABORATORY | | + + +---- + + + | MCH | 20.8 (L) | 27. 0 - 34.0 pg | [facility] | | | | | | LABORATORY | | + + +---- + + + | MCHC | 30.2 (L) | 32. 0 - 35.5 | [facility] | | | | | g/d L | LABORATORY | | + + +---- + + + | RDW-SD | 49.9 | 37 - 53 fl | [facility] | | | | | | LABORATORY | | + + +---- + + + | Platelet | 331 | 150 - 400 K/uL | [facility] | | | Count | | | LABORATORY | | + + +---- + + + | MPV | 7.8 | fl | [facility] | | | | | | LABORATORY | | + + +---- + + + | Diff Type | AUTOMATED | | [facility] | | | | | | LABORATORY | | + + +---- + + + | % | 79.29 | % | [facility] | | | Neutrophils | | | LABORATORY | | + + +---- + + + | % | 9.29 | % | [facility] | | | Lymphocytes | | | LABORATORY | | + + +---- + + + | Monocyte % | 9.89 | % | [facility] | | | | | | LABORATORY | | + + +---- + + + | Eosinophils | 1.05 | % | [facility] | | | % | | | LABORATORY | | + + +---- + + + | Basophils % | 0.48 | % | [facility] | | | | | | LABORATORY | | + + +---- + + + | Neutrophils | 9.91 (H) | 1.9 0 - 7.40 | [facility] | | | , Absolute | | K/u L | LABORATORY | | + + +---- + + + | Absolute | 1.16 | 1.0 0 - 3.90 | [facility] | | | Lymphocytes | | K/u L | LABORATORY | | + + +---- + + + | Absolute | 1.24 (H) | 0.0 0 - 0.80 | [facility] | | | Monocytes | | K/u L | LABORATORY | | + + +---- + + + | Eosinophils | 0.13 | 0.0 0 - 0.50 | [facility] | | | , Absolute | | K/u L | LABORATORY | | + + +---- + + + | Basophils, | 0.06 | 0.0 0 - 0.10 | [facility] | | | Absolute | | K/u L | LABORATORY | | + + +---- + + + | RBC | 2+Comment: | | [facility] | | | Morphology | HYPO2+MICRONORMAL PLT | | LABORATORY | | | | MORPHTesting performed | | | | | | at [facility], [address] | | | | | [facility], | | | | | | [place] [address] | | | | | |Testing performed at [facility], [address] [facility], [place] [address] | | | | | | | | | | + + +---- + + + + + | Specimen | + + | Blood | + + + + + + + | Performing | Address | City/State/Zipcode | Phone Number | | Organization | | | | + + + + + | [facility] | [address] | [place] [address] | [phone] | + + + + + POC Glucose (04/10/2019 9:22 PM PST) + + + + + + | Component | Value | Ref Range | Performed | Pathologist | | | | | At | Signature | + + + + + + | Glucose, | 127 (H)Comment: Testing | 65 - 99 mg/dL | [facility] | | | POC | performed at [facility];[address] | | LABORATORY | | | | [address];[place] | | | | | | [address] | | | | + + + + + + + + | Specimen | + + | | + + + + + + + | Performing | Address | City/State/Zipcode | Phone Number | | Organization | | | | + + + + + | [facility] | [address] | [place] [address] | [phone] | + + + + + POC Glucose (04/10/2019 2:33 PM PST) + + + + + + | Component | Value | Ref Range | Performed | Pathologist | | | | | At | Signature | + + + + + + | Glucose, | 176 (H)Comment: Testing | 65 - 99 mg/dL | [facility] | | | POC | performed at [facility];[address] | | LABORATORY | | | | [address];[place] | | | | | | [address] | | | | + + + + + + + + | Specimen | + + | | + + + + + + + | Performing | Address | City/State/Zipcode | Phone Number | | Organization | | | | + + + + + | [facility] | [address] | [place] [address] | [phone] | + + + + + US Renal Complete (04/10/2019 11:21 AM PST) + + | Specimen | + + | | + + + + + | Impressions | Performed At | + + + | 1. Normal appearance of the kidneys. 2. Bladder is collapsed around | [facility] | | a Miller catheter. Signed by: Karine Christina Edward Sign | | | Date/Time: 04/10/2019 12:10 PM | | + + + + + + | Narrative | Performed At | + + + | ULTRASOUND KIDNEYS AND BLADDER CLINICAL INFORMATION: | [facility] | | Hematuria. COMPARISON: None PROCEDURE: Evaluation of the | | | kidneys and urinary bladder. FINDINGS: Right kidney: 11.2 x 5.3 x | | | 4.9 cm. No solid renal mass, hydronephrosis or definitive calculi. | | | Left kidney: 12.1 x 5.0 x 5.7 cm. No solid renal mass, | | | hydronephrosis or definitive calculi. The lower pole is poorly | | | visualized due to bowel gas. Bladder: The bladder is collapsed | | | around a Miller catheter balloon. | | + + + + + | Procedure Note | + + | Johnson, Eliel Results In 04/10/2019 12:13 PM PST | | ULTRASOUND KIDNEYS AND BLADDER | | | | CLINICAL INFORMATION: | | Hematuria. | | | | COMPARISON: | | None | | | | PROCEDURE: | | Evaluation of the kidneys and urinary bladder. | | | | FINDINGS: | | Right kidney: 11.2 x 5.3 x 4.9 cm. No solid renal mass, hydronephrosis | | or definitive calculi. | | | | Left kidney: 12.1 x 5.0 x 5.7 cm. No solid renal mass, hydronephrosis | | or definitive calculi. The lower pole is poorly visualized due to | | bowel gas. | | | | Bladder: The bladder is collapsed around a Miller catheter balloon. | | | | IMPRESSION: | | 1. Normal appearance of the kidneys. | | 2. Bladder is collapsed around a Miller catheter. | | | | | | | | | | Signed by: Karine Christina Edward | | Sign Date/Time: 04/10/2019 12:10 PM | + + + +---------+ + + | Performing | Address | City/State/Zipcode | Phone Number | | Organization | | | | + +---------+ + + | [facility] | | | | + +---------+ + + POC Glucose (04/10/2019 7:31 AM PST) + + + + + + | Component | Value | Ref Range | Performed | Pathologist | | | | | At | Signature | + + + + + + | Glucose, | 131 (H)Comment: Testing | 65 - 99 mg/dL | [facility] | | | POC | performed at [facility];[address] | | LABORATORY | | | | [address];[place] | | | | | | [address] | | | | + + + + + + + + | Specimen | + + | | + + + + + + + | Performing | Address | City/State/Zipcode | Phone Number | | Organization | | | | + + + + + | [facility] | [address] | [place] [address] | [phone] | + + + + + CBC no Differential (04/10/2019 5:25 AM PST) + + + + + + | Component | Value | Ref Range | Performed | Pathologist | | | | | At | Signature | + + + + + + | WBC | 16.34 (H) | 3.80 - 11.00 | [facility] | | | | | K/uL | LABORATORY | | + + + + + + | RBC | 4.10 (L) | 4.20 - 5.70 | [facility] | | | | | M/uL | LABORATORY | | + + + + + + | Hemoglobin | 8.6 (L) | 13.2 - 17.0 | [facility] | | | | | g/dL | LABORATORY | | + + + + + + | Hematocrit | 27.6 (L) | 39.0 - 50.0 % | [facility] | | | | | | LABORATORY | | + + + + + + | MCV | 67.1 (L) | 80.0 - 100.0 fl | [facility] | | | | | | LABORATORY | | + + + + + + | MCH | 21.0 (L) | 27.0 - 34.0 pg | [facility] | | | | | | LABORATORY | | + + + + + + | MCHC | 31.3 (L) | 32.0 - 35.5 | [facility] | | | | | g/dL | LABORATORY | | + + + + + + | RDW-SD | 49.0 | 37 - 53 fl | [facility] | | | | | | LABORATORY | | + + + + + + | Platelet | 354 | 150 - 400 K/uL | [facility] | | | Count | | | LABORATORY | | + + + + + + | MPV | 8.3Comment: Testing | fl | [facility] | | | | performed at [facility], [address] | | LABORATORY | | | | [address], | | | | | | [place] [address] | | | | + + + + + + + + | Specimen | + + | Blood | + + + + + + + | Performing | Address | City/State/Zipcode | Phone Number | | Organization | | | | + + + + + | [facility] | [address] | [place] [address] | [phone] | + + + + + POC Glucose (04/09/2019 9:57 PM PST) + + + + + + | Component | Value | Ref Range | Performed | Pathologist | | | | | At | Signature | + + + + + + | Glucose, | 151 (H)Comment: Testing | 65 - 99 mg/dL | [facility] | | | POC | performed at [facility];[address] | | LABORATORY | | | | [address];[place] | | | | | | [address] | | | | + + + + + + + + | Specimen | + + | | + + + + + + + | Performing | Address | City/State/Zipcode | Phone Number | | Organization | | | | + + + + + | [facility] | [address] | [place] [address] | [phone] | + + + + + POC Glucose (04/09/2019 5:06 PM PST) + + + + + + | Component | Value | Ref Range | Performed | Pathologist | | | | | At | Signature | + + + + + + | Glucose, | 169 (H)Comment: Testing | 65 - 99 mg/dL | [facility] | | | POC | performed at [facility];[address] | | LABORATORY | | | | [address];[place], [place] | | | | | | [address] | | | | + + + + + + + + | Specimen | + + | | + + + + + + + | Performing | Address | City/State/Zipcode | Phone Number | | Organization | | | | + + + + + | [facility] | [address] | [place] [address] | [phone] | + + + + + POC Glucose (04/09/2019 12:42 PM PST) + + + + + + | Component | Value | Ref Range | Performed | Pathologist | | | | | At | Signature | + + + + + + | Glucose, | 149 (H)Comment: Testing | 65 - 99 mg/dL | [facility] | | | POC | performed at [facility];[address] | | LABORATORY | | | | [address];[place] | | | | | | [address] | | | | + + + + + + + + | Specimen | + + | | + + + + + + + | Performing | Address | City/State/Zipcode | Phone Number | | Organization | | | | + + + + + | [facility] | [address] | [place] [address] | [phone] | + + + + + XR Chest AP Portable (04/09/2019 9:02 AM PST) + + | Specimen | + + | | + + + + + | Impressions | Performed At | + + + | Hypoventilatory exam, it would be difficult to exclude an element of | [facility] | | congestive failure. Signed by: Madison Solis, [facility] [place] [facility] | | | Sign Date/Time: 04/09/2019 9:25 AM | | + + + + + + | Narrative | Performed At | + + + | CHEST PORTABLE ONE VIEW CLINICAL INFORMATION: Shortness of | [facility] | | breath. COMPARISON: XR CHEST AP PORTABLE (04/08/2019); XR CHEST AP | | | PORTABLE (04/06/2019); FINDINGS: The exam is hypoventilatory. | | | Bilateral hilar prominence again noted presumably due to pulmonary | | | arterial hypertension. No focal parenchymal opacities are noted. | | | There is eventration of the left diaphragm. It would be difficult | | | to exclude an element of congestive failure. No definite | | | pneumothorax or pleural effusion identified. | | + + + + + | Procedure Note | + + | Johnson, Rad Results In 04/09/2019 9:29 AM PST | | CHEST PORTABLE ONE VIEW | | | | CLINICAL INFORMATION: | | Shortness of breath. | | | | COMPARISON: | | XR CHEST AP PORTABLE (04/08/2019); XR CHEST AP PORTABLE (04/06/2019); | | | | FINDINGS: | | The exam is hypoventilatory. Bilateral hilar prominence again noted | | presumably due to pulmonary arterial hypertension. No focal | | parenchymal opacities are noted. There is eventration of the left | | diaphragm. It would be difficult to exclude an element of congestive | | failure. No definite pneumothorax or pleural effusion identified. | | | | IMPRESSION: | | Hypoventilatory exam, it would be difficult to exclude an element of | | congestive failure. | | | | | | | | Signed by: Madison Solis Sarsfield | | Sign Date/Time: 04/09/2019 9:25 AM | + + + +---------+ + + | Performing | Address | City/State/Zipcode | Phone Number | | Organization | | | | + +---------+ + + | [facility] | | | | + +---------+ + + Urinalysis, Microscopic Only (04/09/2019 8:48 AM PST) + + + + + + | Component | Value | Ref Range | Performed | Pathologist | | | | | At | Signature | + + + + + + | WBC UA | 3-5 | 0 - 5 /hpf | [facility] | | | | | | LABORATORY | | + + + + + + | Red Blood | >100 | 0 - 2 /hpf | [facility] | | | Cells, | | | LABORATORY | | | Urine | | | | | + + + + + + | Squamous | NONE SEEN | /lpf | [facility] | | | Epithelial | | | LABORATORY | | | Cells, | | | | | | Urine | | | | | + + + + + + | Bacteria, | 1+ (A)Comment: Testing | NONE | [facility] | | | Urine | performed at [facility], [address] | | LABORATORY | | | | [address], | | | | | | [place] [address] | | | | + + + + + + + + | Specimen | + + | | + + + + + + + | Performing | Address | City/State/Zipcode | Phone Number | | Organization | | | | + + + + + | [facility] | [address] | [place] [address] | [phone] | + + + + + Urinalysis, Reflex Microscopic and/or Culture (04/09/2019 8:48 AM PST) + + + + + + | Component | Value | Ref Range | Performed | Pathologist | | | | | At | Signature | + + + + + + | Color, UA | STRAW | | [facility] | | | | | | LABORATORY | | + + + + + + | Clarity, UA | CLEAR | | [facility] | | | | | | LABORATORY | | + + + + + + | Specific | 1.006 | 1.002 - 1.030 | [facility] | | | [place], | | | LABORATORY | | | Urine | | | | | + + + + + + | Leukocyte | NEGATIVE | NEG | [facility] | | | esterase, | | | LABORATORY | | | UA | | | | | + + + + + + | Nitrite, UA | NEGATIVE | NEG | [facility] | | | | | | LABORATORY | | + + + + + + | Urobilinoge | <1.6 | <1.6 mg/dL | [facility] | | | n, Ur | | | LABORATORY | | + + + + + + | Protein, | NEGATIVE | NEG mg/dL | [facility] | | | Urine | | | LABORATORY | | | (mg/dL) | | | | | + + + + + + | pH, Urine | 5.0 | 5.0 - 8.0 | [facility] | | | | | | LABORATORY | | + + + + + + | Blood, UA | LARGE (A) | NEG | [facility] | | | | | | LABORATORY | | + + + + + + | Ketones, UA | NEGATIVE | NEG mg/dL | [facility] | | | | | | LABORATORY | | + + + + + + | Bilirubin, | NEGATIVE | NEG | [facility] | | | UA | | | LABORATORY | | + + + + + + | Glucose, Ur | NEGATIVE | NEG mg/dL | [facility] | | | | | | LABORATORY | | + + + + + + + + | Specimen | + + | Urine - Urine | | specimen obtained by | | clean catch | | procedure (specimen) | + + + + + + + | Performing | Address | City/State/Zipcode | Phone Number | | Organization | | | | + + + + + | [facility] | [address] | [place] [address] | [phone] | + + + + + Sedimentation Rate (04/09/2019 6:16 AM PST) + + + + + + | Component | Value | Ref Range | Performed | Pathologist | | | | | At | Signature | + + + + + + | ESR | 91 (H)Comment: Testing | 0 - 20 mm/Hr | [facility] | | | | performed at [facility], [address] | | LABORATORY | | | | [address], | | | | | | [place] [address] | | | | + + + + + + + + | Specimen | + + | Blood | + + + + + + + | Performing | Address | City/State/Zipcode | Phone Number | | Organization | | | | + + + + + | [facility] | [address] | [place] [address] | [phone] | + + + + + CBC no Differential (04/09/2019 6:16 AM PST) + + + + + + | Component | Value | Ref Range | Performed | Pathologist | | | | | At | Signature | + + + + + + | WBC | 16.61 (H) | 3.80 - 11.00 | [facility] | | | | | K/uL | LABORATORY | | + + + + + + | RBC | 4.27 | 4.20 - 5.70 | [facility] | | | | | M/uL | LABORATORY | | + + + + + + | Hemoglobin | 8.9 (L) | 13.2 - 17.0 | [facility] | | | | | g/dL | LABORATORY | | + + + + + + | Hematocrit | 29.0 (L) | 39.0 - 50.0 % | [facility] | | | | | | LABORATORY | | + + + + + + | MCV | 68.0 (L) | 80.0 - 100.0 fl | [facility] | | | | | | LABORATORY | | + + + + + + | MCH | 20.9 (L) | 27.0 - 34.0 pg | [facility] | | | | | | LABORATORY | | + + + + + + | MCHC | 30.7 (L) | 32.0 - 35.5 | [facility] | | | | | g/dL | LABORATORY | | + + + + + + | RDW-SD | 49.4 | 37 - 53 fl | [facility] | | | | | | LABORATORY | | + + + + + + | Platelet | 419 (H) | 150 - 400 K/uL | [facility] | | | Count | | | LABORATORY | | + + + + + + | MPV | 8.1Comment: Testing | fl | [facility] | | | | performed at [facility], [address] | | LABORATORY | | | | [address], | | | | | | [place] [address] | | | | + + + + + + + + | Specimen | + + | Blood | + + + + + + + | Performing | Address | City/State/Zipcode | Phone Number | | Organization | | | | + + + + + | [facility] | [address] | [place] [address] | [phone] | + + + + + Comprehensive Metabolic Panel (04/09/2019 6:16 AM PST) + + + + + + | Component | Value | Ref Range | Performed | Pathologist | | | | | At | Signature | + + + + + + | Na | 134 (L) | 135 - 145 | [facility] | | | | | mmol/L | LABORATORY | | + + + + + + | K | 4.1 | 3.5 - 4.9 | [facility] | | | | | mmol/L | LABORATORY | | + + + + + + | Cl | 96 (L) | 99 - 109 mmol/L | [facility] | | | | | | LABORATORY | | + + + + + + | CO2 | 34 (H) | 23 - 32 mmol/L | [facility] | | | | | | LABORATORY | | + + + + + + | Anion Gap | 8 | 5 - 20 mmol/L | [facility] | | | | | | LABORATORY | | + + + + + + | Glucose | 163 (H) | 65 - 99 mg/dL | [facility] | | | | | | LABORATORY | | + + + + + + | BUN | 18 | 8 - 25 mg/dL | [facility] | | | | | | LABORATORY | | + + + + + + | Creatinine | 0.8 | 0.70 - 1.30 | [facility] | | | | | mg/dL | LABORATORY | | + + + + + + | BUN/Creatin | 23 | | [facility] | | | ine Ratio | | | LABORATORY | | + + + + + + | Calcium | 8.3 (L) | 8.5 - 10.5 | [facility] | | | | | mg/dL | LABORATORY | | + + + + + + | Protein, | 7.5 | 6.3 - 8.2 g/dL | [facility] | | | Total | | | LABORATORY | | + + + + + + | Albumin | 2.0 (L) | 3.3 - 4.8 g/dL | [facility] | | | | | | LABORATORY | | + + + + + + | Globulin | 5.5 (H) | 1.3 - 4.9 g/dL | [facility] | | | | | | LABORATORY | | + + + + + + | A/G Ratio | 0.4 (L) | 1.0 - 2.4 | [facility] | | | | | | LABORATORY | | + + + + + + | BILIRUBIN, | 0.6 | 0.1 - 1.5 mg/dL | [facility] | | | TOTAL | | | LABORATORY | | + + + + + + | ALK PHOS | 70 | 35 - 115 U/L | [facility] | | | | | | LABORATORY | | + + + + + + | AST | 18 | 10 - 45 U/L | [facility] | | | | | | LABORATORY | | + + + + + + | ALT | 18 | 10 - 65 U/L | [facility] | | | | | | LABORATORY | | + + + + + + | Estimated | >60Comment: GFR <60: | >60 | [facility] | | | GFR | CHRONIC KIDNEY DISEASE, | mL/min/1.73m2 | LABORATORY | | | | IF FOUND OVER A 3 MONTH | | | | | | PERIOD.GFR <15: KIDNEY | | | | | | FAILURE.FOR | | | | | | AMERICANS, MULTIPLY THE | | | | | | CALCULATED GFR BY | | | | | | 1.210.This eGFR is | | | | | | calculated using the | | | | | | MDRD IDMS traceable | | | | | | equation.Testing | | | | | | performed at [facility], [address] | | | | | | [facility], | | | | | | [place] [address] | | | | + + + + + + + + | Specimen | + + | Blood | + + + + + + + | Performing | Address | City/State/Zipcode | Phone Number | | Organization | | | | + + + + + | [facility] | [address] | [place] [address] | [phone] | + + + + + POC Glucose (04/08/2019 10:09 PM PST) + + + + + + | Component | Value | Ref Range | Performed | Pathologist | | | | | At | Signature | + + + + + + | Glucose, | 168 (H)Comment: Testing | 65 - 99 mg/dL | [facility] | | | POC | performed at [facility];[address] | | LABORATORY | | | | [address];[place] | | | | | | [address] | | | | + + + + + + + + | Specimen | + + | | + + + + + + + | Performing | Address | City/State/Zipcode | Phone Number | | Organization | | | | + + + + + | [facility] | [address] | [place] [address] | [phone] | + + + + + Fecal Hemoglobin (04/08/2019 7:27 PM PST) + + + + + + | Component | Value | Ref Range | Performed | Pathologist | | | | | At | Signature | + + + + + + | FECAL | NEGATIVEComment: Testing | NEG | [facility] | | | OCCULT BLD | performed at [facility];[address] | | LABORATORY | | | | [address];[place] | | | | | | [address] | | | | + + + + + + + + | Specimen | + + | Stool - Stool | | specimen (specimen) | + + + + + + + | Performing | Address | City/State/Zipcode | Phone Number | | Organization | | | | + + + + + | [facility] | [address] | [place] [address] | [phone] | + + + + + POC Glucose (04/08/2019 6:34 PM PST) + + + + + + | Component | Value | Ref Range | Performed | Pathologist | | | | | At | Signature | + + + + + + | Glucose, | 179 (H)Comment: Testing | 65 - 99 mg/dL | [facility] | | | POC | performed at [facility];[address] | | LABORATORY | | | | [address];[place], [place] | | | | | | [address] | | | | + + + + + + + + | Specimen | + + | | + + + + + + + | Performing | Address | City/State/Zipcode | Phone Number | | Organization | | | | + + + + + | [facility] | [address] | [place] [address] | [phone] | + + + + + XR Abdomen AP (04/08/2019 2:41 PM PST) + + | Specimen | + + | | + + + + + | Impressions | Performed At | + + + | Negative abdomen. Signed by: Madison Acosta, Ling Luis Sign | [facility] | | Date/Time: 04/08/2019 2:53 PM | | + + + + + + | Narrative | Performed At | + + + | ABDOMEN ONE VIEW (KUB) CLINICAL INFORMATION: Abdominal pain | [facility] | | COMPARISON: CT Abdomen/Pelvis w/IV (04/05/2013); GALLBLADDER | | | ULTRASOUND (04/05/2013); Abdomen 1 View (04/22/2012); FINDINGS: | | | Bowel gas pattern normal. No plain film evidence of ascites or mass. | | | No abnormal calcifications. No significant bone abnormality. | | + + + + + | Procedure Note | + + | Johnson, Rad Results In 04/08/2019 2:56 PM PST | | ABDOMEN ONE VIEW (KUB) | | | | CLINICAL INFORMATION: | | Abdominal pain | | | | COMPARISON: | | CT Abdomen/Pelvis w/IV (04/05/2013); GALLBLADDER ULTRASOUND (04/05/2013); | | Abdomen 1 View (04/22/2012); | | | | FINDINGS: | | Bowel gas pattern normal. No plain film evidence of ascites or mass. No | | abnormal calcifications. No significant bone abnormality. | | | | IMPRESSION: | | Negative abdomen. | | | | | | | | Signed by: Madison Acosta C. Mark | | Sign Date/Time: 04/08/2019 2:53 PM | + + + +---------+ + + | Performing | Address | City/State/Zipcode | Phone Number | | Organization | | | | + +---------+ + + | [facility] | | | | + +---------+ + + POC Glucose (04/08/2019 11:25 AM PST) + + + + + + | Component | Value | Ref Range | Performed | Pathologist | | | | | At | Signature | + + + + + + | Glucose, | 266 (H)Comment: Testing | 65 - 99 mg/dL | [facility] | | | POC | performed at [facility];[address] | | LABORATORY | | | | [address];[place], [place] | | | | | | [address] | | | | + + + + + + + + | Specimen | + + | | + + + + + + + | Performing | Address | City/State/Zipcode | Phone Number | | Organization | | | | + + + + + | [facility] | [address] | [place] [address] | [phone] | + + + + + XR Chest AP Portable (04/08/2019 9:25 AM PST) + + | Specimen | + + | | + + + + + | Impressions | Performed At | + + + | 1. No lines or tubes. 2. Bilateral basilar opacities may represent | [facility] | | consolidation, pleural effusion, atelectasis, or a combination of | | | these. 3. Low lung volumes done for scoliosis. Signed | | | by: Madison Acosta, Ling Luis Sign Date/Time: 04/08/2019 9:32 AM | | + + + + + + | Narrative | Performed At | + + + | CHEST PORTABLE ONE VIEW CLINICAL INFORMATION: Shortness of | [facility] | | breath. COMPARISON: XR CHEST AP PORTABLE (04/06/2019); XR CHEST AP | | | PORTABLE (11/26/2017); XR CHEST AP PORTABLE (11/22/2017); FINDINGS: | | | Lung volume remains low or is convex right thoracolumbar curvature | | | process. The aorta is mildly calcified 5th opacity obscures the left | | | hemidiaphragm she. A opacity in both lung bases similar the prior | | | exam. No pneumothorax is demonstrated. | | + + + + + | Procedure Note | + + | Eliel Ornelas Results In 04/08/2019 9:35 AM PST | | CHEST PORTABLE ONE VIEW | | | | CLINICAL INFORMATION: | | Shortness of breath. | | | | COMPARISON: | | XR CHEST AP PORTABLE (04/06/2019); XR CHEST AP PORTABLE (11/26/2017); XR | | CHEST AP PORTABLE (11/22/2017); | | | | FINDINGS: | | Lung volume remains low or is convex right thoracolumbar curvature | | process. The aorta is mildly calcified 5th opacity obscures the left | | hemidiaphragm she. A opacity in both lung bases similar the prior | | exam. No pneumothorax is demonstrated. | | | | IMPRESSION: | | 1. No lines or tubes. | | 2. Bilateral basilar opacities may represent consolidation, pleural | | effusion, atelectasis, or a combination of these. | | 3. Low lung volumes done for scoliosis. | | | | | | | | | | Signed by: Madison Acosta C. Mark | | Sign Date/Time: 04/08/2019 9:32 AM | + + + +---------+ + + | Performing | Address | City/State/Zipcode | Phone Number | | Organization | | | | + +---------+ + + | [facility] | | | | + +---------+ + + POC Glucose (04/08/2019 6:32 AM PST) + + + + + + | Component | Value | Ref Range | Performed | Pathologist | | | | | At | Signature | + + + + + + | Glucose, | 278 (H)Comment: Testing | 65 - 99 mg/dL | [facility] | | | POC | performed at [facility];[address] | | LABORATORY | | | | [address];[place], [place] | | | | | | [address] | | | | + + + + + + + + | Specimen | + + | | + + + + + + + | Performing | Address | City/State/Zipcode | Phone Number | | Organization | | | | + + + + + | [facility] | [address] | [place] [address] | [phone] | + + + + + B Type Natriuretic Peptide (04/08/2019 5:45 AM PST) + + + + + + | Component | Value | Ref Range | Performed | Pathologist | | | | | At | Signature | + + + + + + | BNP | 580.26 (H)Comment: | 0 - 100 pg/mL | [facility] | | | | Testing performed at | | LABORATORY | | | | [facility];[address];[place] [address] | | | | + + + + + + + + | Specimen | + + | Blood | + + + + + + + | Performing | Address | City/State/Zipcode | Phone Number | | Organization | | | | + + + + + | [facility] | [address] | [place] [address] | [phone] | + + + + + CBC no Differential (04/08/2019 5:45 AM PST) + + + + + + | Component | Value | Ref Range | Performed | Pathologist | | | | | At | Signature | + + + + + + | WBC | 10.47 | 3.80 - 11.00 | [facility] | | | | | K/uL | LABORATORY | | + + + + + + | RBC | 4.14 (L) | 4.20 - 5.70 | [facility] | | | | | M/uL | LABORATORY | | + + + + + + | Hemoglobin | 8.8 (L) | 13.2 - 17.0 | [facility] | | | | | g/dL | LABORATORY | | + + + + + + | Hematocrit | 28.1 (L) | 39.0 - 50.0 % | [facility] | | | | | | LABORATORY | | + + + + + + | MCV | 68.0 (L) | 80.0 - 100.0 fl | [facility] | | | | | | LABORATORY | | + + + + + + | MCH | 21.2 (L) | 27.0 - 34.0 pg | [facility] | | | | | | LABORATORY | | + + + + + + | MCHC | 31.2 (L) | 32.0 - 35.5 | [facility] | | | | | g/dL | LABORATORY | | + + + + + + | RDW-SD | 50.3 | 37 - 53 fl | [facility] | | | | | | LABORATORY | | + + + + + + | Platelet | 376 | 150 - 400 K/uL | [facility] | | | Count | | | LABORATORY | | + + + + + + | MPV | 8.2Comment: Testing | fl | [facility] | | | | performed at [facility], [address] | | LABORATORY | | | | [address], | | | | | | [place] [address] | | | | + + + + + + + + | Specimen | + + | Blood | + + + + + + + | Performing | Address | City/State/Zipcode | Phone Number | | Organization | | | | + + + + + | [facility] | [address] | [place] [address] | [phone] | + + + + + Comprehensive Metabolic Panel (04/08/2019 5:45 AM PST) + + + + + + | Component | Value | Ref Range | Performed | Pathologist | | | | | At | Signature | + + + + + + | Na | 134 (L) | 135 - 145 | [facility] | | | | | mmol/L | LABORATORY | | + + + + + + | K | 5.0 (H) | 3.5 - 4.9 | [facility] | | | | | mmol/L | LABORATORY | | + + + + + + | Cl | 97 (L) | 99 - 109 mmol/L | [facility] | | | | | | LABORATORY | | + + + + + + | CO2 | 34 (H) | 23 - 32 mmol/L | [facility] | | | | | | LABORATORY | | + + + + + + | Anion Gap | 8 | 5 - 20 mmol/L | [facility] | | | | | | LABORATORY | | + + + + + + | Glucose | 258 (H) | 65 - 99 mg/dL | [facility] | | | | | | LABORATORY | | + + + + + + | BUN | 18 | 8 - 25 mg/dL | [facility] | | | | | | LABORATORY | | + + + + + + | Creatinine | 0.8 | 0.70 - 1.30 | [facility] | | | | | mg/dL | LABORATORY | | + + + + + + | BUN/Creatin | 23 | | [facility] | | | ine Ratio | | | LABORATORY | | + + + + + + | Calcium | 8.3 (L) | 8.5 - 10.5 | [facility] | | | | | mg/dL | LABORATORY | | + + + + + + | Protein, | 7.4 | 6.3 - 8.2 g/dL | [facility] | | | Total | | | LABORATORY | | + + + + + + | Albumin | 2.0 (L) | 3.3 - 4.8 g/dL | [facility] | | | | | | LABORATORY | | + + + + + + | Globulin | 5.4 (H) | 1.3 - 4.9 g/dL | [facility] | | | | | | LABORATORY | | + + + + + + | A/G Ratio | 0.4 (L) | 1.0 - 2.4 | [facility] | | | | | | LABORATORY | | + + + + + + | BILIRUBIN, | 0.4 | 0.1 - 1.5 mg/dL | [facility] | | | TOTAL | | | LABORATORY | | + + + + + + | ALK PHOS | 79 | 35 - 115 U/L | [facility] | | | | | | LABORATORY | | + + + + + + | AST | 19 | 10 - 45 U/L | [facility] | | | | | | LABORATORY | | + + + + + + | ALT | 20 | 10 - 65 U/L | [facility] | | | | | | LABORATORY | | + + + + + + | Estimated | >60Comment: GFR <60: | >60 | [facility] | | | GFR | CHRONIC KIDNEY DISEASE, | mL/min/1.73m2 | LABORATORY | | | | IF FOUND OVER A 3 MONTH | | | | | | PERIOD.GFR <15: KIDNEY | | | | | | FAILURE.FOR | | | | | | AMERICANS, MULTIPLY THE | | | | | | CALCULATED GFR BY | | | | | | 1.210.This eGFR is | | | | | | calculated using the | | | | | | MDRD IDMS traceable | | | | | | equation.Testing | | | | | | performed at [facility], [address] | | | | | | [address], | | | | | | [place] [address] | | | | + + + + + + + + | Specimen | + + | Blood | + + + + + + + | Performing | Address | City/State/Zipcode | Phone Number | | Organization | | | | + + + + + | [facility] | [address] | [place] [address] | [phone] | + + + + + POC Glucose (04/07/2019 8:36 PM PST) + + + + + + | Component | Value | Ref Range | Performed | Pathologist | | | | | At | Signature | + + + + + + | Glucose, | 282 (H)Comment: Testing | 65 - 99 mg/dL | [facility] | | | POC | performed at [facility];[address] | | LABORATORY | | | | [address];[place], [place] | | | | | | [address] | | | | + + + + + + + + | Specimen | + + | | + + + + + + + | Performing | Address | City/State/Zipcode | Phone Number | | Organization | | | | + + + + + | [facility] | [address] | [place] [address] | [phone] | + + + + + POC Glucose (04/07/2019 4:25 PM PST) + + + + + + | Component | Value | Ref Range | Performed | Pathologist | | | | | At | Signature | + + + + + + | Glucose, | 187 (H)Comment: Testing | 65 - 99 mg/dL | [facility] | | | POC | performed at [facility];[address] | | LABORATORY | | | | [address];[place] | | | | | | [address] | | | | + + + + + + + + | Specimen | + + | | + + + + + + + | Performing | Address | City/State/Zipcode | Phone Number | | Organization | | | | + + + + + | [facility] | [address] | [place] [address] | [phone] | + + + + + POC Glucose (04/07/2019 12:40 PM PST) + + + + + + | Component | Value | Ref Range | Performed | Pathologist | | | | | At | Signature | + + + + + + | Glucose, | 252 (H)Comment: Testing | 65 - 99 mg/dL | [facility] | | | POC | performed at [facility];[address] | | LABORATORY | | | | [address];[place], [place] | | | | | | [address] | | | | + + + + + + + + | Specimen | + + | | + + + + + + + | Performing | Address | City/State/Zipcode | Phone Number | | Organization | | | | + + + + + | [facility] | [address] | [place] [address] | [phone] | + + + + + XR Foot Right 3 + Vw (04/07/2019 11:05 AM PST) + + | Specimen | + + | | + + + + + | Impressions | Performed At | + + + | 1. Lysis of the plantar surface of the RIGHT calcaneus, compatible | [facility] | | with osteomyelitis. Disease may be more fully mapped with | | | MRI-which should be considered if a difference intervention is | | | contemplated 2. Dysmorphic demineralized and nonacute appearing | | | changes to bone throughout the right foot as above 3. | | | Osteolysis and malalignment on both sides of the LEFT 5th | | | metatarsophalangeal joint. Consistent with osteomyelitis and/or | | | septic arthropathy there. Again, consider MRI Signed | | | by: Madison Argueta, Jamar Sign Date/Time: 04/07/2019 1:43 PM | | + + + + + + | Narrative | Performed At | + + + | RIGHT FOOT THREE VIEWS; LEFT FOOT THREE VIEWS CLINICAL | [facility] | | INFORMATION: Heel wound. Osteomyelitis.; Foot wound. Osteomyelitis. | | | COMPARISON: MRI FOOT RIGHT W WO CONTRAST (11/20/2017); FINDINGS: | | | RIGHT FOOT: Compared to the MRI from 11/2017, the posterior calcaneus | | | is dysmorphic and truncated with cephalad directed osteophytosis. | | | The plantar adjacent soft tissues are uniformly dense, irregular, | | | and swollen. The undersurface of the bone is irregular, lytic and | | | favor osteomyelitis. The nearby bone is sclerotic. The base of | | | the 5th metatarsal is attenuated/truncated, a site of previous | | | infection. The more distal bones are dysmorphic and demineralized | | | and there is periosteal thickening of the mid diaphyses of the 4th | | | and 3rd metatarsals also. LEFT FOOT: Destruction and malalignment | | | across the 5th metatarsophalangeal joint of the left foot. Ulcer | | | immediately adjacent. There is demineralization throughout and the | | | 3rd digit is absent, with smooth tapering/truncation of the midbody | | | of the 3rd metatarsal. | | + + + + + | Procedure Note | + + | Johnson, Rad Results In 04/07/2019 1:47 PM PST | | RIGHT FOOT THREE VIEWS; LEFT FOOT THREE VIEWS | | | | CLINICAL INFORMATION: | | Heel wound. Osteomyelitis.; Foot wound. Osteomyelitis. | | | | COMPARISON: | | MRI FOOT RIGHT W WO CONTRAST (11/20/2017); | | | | FINDINGS: | | RIGHT FOOT: Compared to the MRI from 11/2017, the posterior calcaneus is | | dysmorphic and truncated with cephalad directed osteophytosis. The | | plantar adjacent soft tissues are uniformly dense, irregular, and | | swollen. | | | | The undersurface of the bone is irregular, lytic and favor | | osteomyelitis. The nearby bone is sclerotic. | | | | The base of the 5th metatarsal is attenuated/truncated, a site of | | previous infection. The more distal bones are dysmorphic and | | demineralized and there is periosteal thickening of the mid diaphyses | | of the 4th and 3rd metatarsals also. | | | | LEFT FOOT: Destruction and malalignment across the 5th | | metatarsophalangeal joint of the left foot. Ulcer immediately adjacent. | | | | There is demineralization throughout and the 3rd digit is absent, with | | smooth tapering/truncation of the midbody of the 3rd metatarsal. | | | | IMPRESSION: | | 1. Lysis of the plantar surface of the RIGHT calcaneus, compatible | | with osteomyelitis. | | | | Disease may be more fully mapped with MRI-which should be considered if | | a difference intervention is contemplated | | | | 2. Dysmorphic demineralized and nonacute appearing changes to bone | | throughout the right foot as above | | | | 3. Osteolysis and malalignment on both sides of the LEFT 5th | | metatarsophalangeal joint. Consistent with osteomyelitis and/or septic | | arthropathy there. | | | | Again, consider MRI | | | | | | | | Signed by: Madison Argueta Timothy | | Sign Date/Time: 04/07/2019 1:43 PM | + + + +---------+ + + | Performing | Address | City/State/Zipcode | Phone Number | | Organization | | | | + +---------+ + + | [facility] | | | | + +---------+ + + XR Foot Left 3 + Vw (04/07/2019 11:04 AM PST) + + | Specimen | + + | | + + + + + | Impressions | Performed At | + + + | 1. Lysis of the plantar surface of the RIGHT calcaneus, compatible | [facility] | | with osteomyelitis. Disease may be more fully mapped with | | | MRI-which should be considered if a difference intervention is | | | contemplated 2. Dysmorphic demineralized and nonacute appearing | | | changes to bone throughout the right foot as above 3. | | | Osteolysis and malalignment on both sides of the LEFT 5th | | | metatarsophalangeal joint. Consistent with osteomyelitis and/or | | | septic arthropathy there. Again, consider MRI Signed | | | by: Madison Argueta, Jamar Sign Date/Time: 04/07/2019 1:43 PM | | + + + + + + | Narrative | Performed At | + + + | RIGHT FOOT THREE VIEWS; LEFT FOOT THREE VIEWS CLINICAL | [facility] | | INFORMATION: Heel wound. Osteomyelitis.; Foot wound. Osteomyelitis. | | | COMPARISON: MRI FOOT RIGHT W WO CONTRAST (11/20/2017); FINDINGS: | | | RIGHT FOOT: Compared to the MRI from 11/2017, the posterior calcaneus | | | is dysmorphic and truncated with cephalad directed osteophytosis. | | | The plantar adjacent soft tissues are uniformly dense, irregular, | | | and swollen. The undersurface of the bone is irregular, lytic and | | | favor osteomyelitis. The nearby bone is sclerotic. The base of | | | the 5th metatarsal is attenuated/truncated, a site of previous | | | infection. The more distal bones are dysmorphic and demineralized | | | and there is periosteal thickening of the mid diaphyses of the 4th | | | and 3rd metatarsals also. LEFT FOOT: Destruction and malalignment | | | across the 5th metatarsophalangeal joint of the left foot. Ulcer | | | immediately adjacent. There is demineralization throughout and the | | | 3rd digit is absent, with smooth tapering/truncation of the midbody | | | of the 3rd metatarsal. | | + + + + + | Procedure Note | + + | Johnson, Rad Results In 04/07/2019 1:47 PM PST | | RIGHT FOOT THREE VIEWS; LEFT FOOT THREE VIEWS | | | | CLINICAL INFORMATION: | | Heel wound. Osteomyelitis.; Foot wound. Osteomyelitis. | | | | COMPARISON: | | MRI FOOT RIGHT W WO CONTRAST (11/20/2017); | | | | FINDINGS: | | RIGHT FOOT: Compared to the MRI from 11/2017, the posterior calcaneus is | | dysmorphic and truncated with cephalad directed osteophytosis. The | | plantar adjacent soft tissues are uniformly dense, irregular, and | | swollen. | | | | The undersurface of the bone is irregular, lytic and favor | | osteomyelitis. The nearby bone is sclerotic. | | | | The base of the 5th metatarsal is attenuated/truncated, a site of | | previous infection. The more distal bones are dysmorphic and | | demineralized and there is periosteal thickening of the mid diaphyses | | of the 4th and 3rd metatarsals also. | | | | LEFT FOOT: Destruction and malalignment across the 5th | | metatarsophalangeal joint of the left foot. Ulcer immediately adjacent. | | | | There is demineralization throughout and the 3rd digit is absent, with | | smooth tapering/truncation of the midbody of the 3rd metatarsal. | | | | IMPRESSION: | | 1. Lysis of the plantar surface of the RIGHT calcaneus, compatible | | with osteomyelitis. | | | | Disease may be more fully mapped with MRI-which should be considered if | | a difference intervention is contemplated | | | | 2. Dysmorphic demineralized and nonacute appearing changes to bone | | throughout the right foot as above | | | | 3. Osteolysis and malalignment on both sides of the LEFT 5th | | metatarsophalangeal joint. Consistent with osteomyelitis and/or septic | | arthropathy there. | | | | Again, consider MRI | | | | | | | | Signed by: Madison Argueta, Jamar | | Sign Date/Time: 04/07/2019 1:43 PM | + + + +---------+ + + | Performing | Address | City/State/Zipcode | Phone Number | | Organization | | | | + +---------+ + + | [facility] | | | | + +---------+ + + POC Glucose (04/07/2019 8:49 AM PST) + + + + + + | Component | Value | Ref Range | Performed | Pathologist | | | | | At | Signature | + + + + + + | Glucose, | 301 (H)Comment: Testing | 65 - 99 mg/dL | [facility] | | | POC | performed at [facility];[address] | | LABORATORY | | | | [address];[place] | | | | | | [address] | | | | + + + + + + + + | Specimen | + + | | + + + + + + + | Performing | Address | City/State/Zipcode | Phone Number | | Organization | | | | + + + + + | [facility] | [address] | [place] [address] | [phone] | + + + + + Magnesium (04/07/2019 5:02 AM PST) + + + + + + | Component | Value | Ref Range | Performed | Pathologist | | | | | At | Signature | + + + + + + | Magnesium | 2.1Comment: Testing | 1.7 - 2.4 mg/dL | [facility] | | | | performed at [facility], [address] | | LABORATORY | | | | [address], | | | | | | [place] [address] | | | | + + + + + + + + | Specimen | + + | Blood | + + + + + + + | Performing | Address | City/State/Zipcode | Phone Number | | Organization | | | | + + + + + | [facility] | [address] | [place] [address] | [phone] | + + + + + CBC no Differential (04/07/2019 5:02 AM PST) + + + + + + | Component | Value | Ref Range | Performed | Pathologist | | | | | At | Signature | + + + + + + | WBC | 12.29 (H) | 3.80 - 11.00 | [facility] | | | | | K/uL | LABORATORY | | + + + + + + | RBC | 4.48 | 4.20 - 5.70 | [facility] | | | | | M/uL | LABORATORY | | + + + + + + | Hemoglobin | 9.2 (L) | 13.2 - 17.0 | [facility] | | | | | g/dL | LABORATORY | | + + + + + + | Hematocrit | 30.2 (L) | 39.0 - 50.0 % | [facility] | | | | | | LABORATORY | | + + + + + + | MCV | 67.4 (L) | 80.0 - 100.0 fl | [facility] | | | | | | LABORATORY | | + + + + + + | MCH | 20.5 (L) | 27.0 - 34.0 pg | [facility] | | | | | | LABORATORY | | + + + + + + | MCHC | 30.3 (L) | 32.0 - 35.5 | [facility] | | | | | g/dL | LABORATORY | | + + + + + + | RDW-SD | 49.9 | 37 - 53 fl | [facility] | | | | | | LABORATORY | | + + + + + + | Platelet | 398 | 150 - 400 K/uL | [facility] | | | Count | | | LABORATORY | | + + + + + + | MPV | 7.8Comment: Testing | fl | I[facility] | | | | performed at [facility];[address] | | LABORATORY | | | | [address];[place] | | | | | | [address] | | | | + + + + + + + + | Specimen | + + | Blood | + + + + + + + | Performing | Address | City/State/Zipcode | Phone Number | | Organization | | | | + + + + + | [facility] | [address] | [place] [address] | [phone] | + + + + + Comprehensive Metabolic Panel (04/07/2019 5:02 AM PST) + + + + + + | Component | Value | Ref Range | Performed | Pathologist | | | | | At | Signature | + + + + + + | Na | 134 (L) | 135 - 145 | [facility] | | | | | mmol/L | LABORATORY | | + + + + + + | K | 4.6 | 3.5 - 4.9 | [facility] | | | | | mmol/L | LABORATORY | | + + + + + + | Cl | 98 (L) | 99 - 109 mmol/L | [facility] | | | | | | LABORATORY | | + + + + + + | CO2 | 36 (H) | 23 - 32 mmol/L | [facility] | | | | | | LABORATORY | | + + + + + + | Anion Gap | 5 | 5 - 20 mmol/L | [facility] | | | | | | LABORATORY | | + + + + + + | Glucose | 205 (H) | 65 - 99 mg/dL | [facility] | | | | | | LABORATORY | | + + + + + + | BUN | 21 | 8 - 25 mg/dL | [facility] | | | | | | LABORATORY | | + + + + + + | Creatinine | 0.9 | 0.70 - 1.30 | [facility] | | | | | mg/dL | LABORATORY | | + + + + + + | BUN/Creatin | 23 | | [facility] | | | ine Ratio | | | LABORATORY | | + + + + + + | Calcium | 8.4 (L) | 8.5 - 10.5 | [facility] | | | | | mg/dL | LABORATORY | | + + + + + + | Protein, | 7.6 | 6.3 - 8.2 g/dL | [facility] | | | Total | | | LABORATORY | | + + + + + + | Albumin | 2.0 (L) | 3.3 - 4.8 g/dL | [facility] | | | | | | LABORATORY | | + + + + + + | Globulin | 5.6 (H) | 1.3 - 4.9 g/dL | [facility] | | | | | | LABORATORY | | + + + + + + | A/G Ratio | 0.4 (L) | 1.0 - 2.4 | [facility] | | | | | | LABORATORY | | + + + + + + | BILIRUBIN, | 0.5 | 0.1 - 1.5 mg/dL | [facility] | | | TOTAL | | | LABORATORY | | + + + + + + | ALK PHOS | 73 | 35 - 115 U/L | [facility] | | | | | | LABORATORY | | + + + + + + | AST | 25 | 10 - 45 U/L | [facility] | | | | | | LABORATORY | | + + + + + + | ALT | 25 | 10 - 65 U/L | [facility] | | | | | | LABORATORY | | + + + + + + | Estimated | >60Comment: GFR <60: | >60 | [facility] | | | GFR | CHRONIC KIDNEY DISEASE, | mL/min/1.73m2 | LABORATORY | | | | IF FOUND OVER A 3 MONTH | | | | | | PERIOD.GFR <15: KIDNEY | | | | | | FAILURE.FOR | | | | | | AMERICANS, MULTIPLY THE | | | | | | CALCULATED GFR BY | | | | | | 1.210.This eGFR is | | | | | | calculated using the | | | | | | MDRD IDMS traceable | | | | | | equation.Testing | | | | | | performed at [facility], [address] | | | | | | [facility], | | | | | | [place] [address] | | | | + + + + + + + + | Specimen | + + | Blood | + + + + + + + | Performing | Address | City/State/Zipcode | Phone Number | | Organization | | | | + + + + + | [facility] | [address] | [place] [address] | [phone] | + + + + + Iron, Total (04/07/2019 5:02 AM PST) + + + + + + | Component | Value | Ref Range | Performed | Pathologist | | | | | At | Signature | + + + + + + | Iron | 23 (L)Comment: Testing | 45 - 190 ug/dL | [facility] | | | | performed at [facility], [address] | | LABORATORY | | | | [address], | | | | | | [place] [address] | | | | + + + + + + + + | Specimen | + + | Blood | + + + + + + + | Performing | Address | City/State/Zipcode | Phone Number | | Organization | | | | + + + + + | [facility] | [address] | [place] [address] | [phone] | + + + + + POC Glucose (04/06/2019 8:54 PM PST) + + + + + + | Component | Value | Ref Range | Performed | Pathologist | | | | | At | Signature | + + + + + + | Glucose, | 216 (H)Comment: Testing | 65 - 99 mg/dL | [facility] | | | POC | performed at [facility];[address] | | LABORATORY | | | | [address];[place], [place] | | | | | | [address] | | | | + + + + + + + + | Specimen | + + | | + + + + + + + | Performing | Address | City/State/Zipcode | Phone Number | | Organization | | | | + + + + + | [facility] | [address] | [place] [address] | [phone] | + + + + + POC Glucose (04/06/2019 4:29 PM PST) + + + + + + | Component | Value | Ref Range | Performed | Pathologist | | | | | At | Signature | + + + + + + | Glucose, | 173 (H)Comment: Testing | 65 - 99 mg/dL | [facility] | | | POC | performed at [facility];[address] | | LABORATORY | | | | [address];[place] | | | | | | [address] | | | | + + + + + + + + | Specimen | + + | | + + + + + + + | Performing | Address | City/State/Zipcode | Phone Number | | Organization | | | | + + + + + | [facility] | [address] | [place] [address] | [phone] | + + + + + Culture, Wound, Superficial (04/06/2019 3:46 PM PST) + + + + + + | Component | Value | Ref Range | Performed | Pathologist | | | | | At | Signature | + + + + + + | Special | RIGHT FOOT | | [facility] | | | Requests | | | LABORATORY | | + + + + + + | Special | Testing performed at | | [facility] | | | Requests | [facility];[address] | | LABORATORY | | | | [address];[place] [address] | | | | + + + + + + | RESULT | 1+NORMAL SKIN CELSA | | [facility] | | | | ISOLATED | | LABORATORY | | | | | | | | + + + + + + | RESULT | NO FURTHER WORKUP | | [facility] | | | | | | LABORATORY | | + + + + + + | RESULT | Testing performed at | | [facility] | | | | [facility], [address] | | LABORATORY | | | | [place], [place] | | | | | | [id number]: Testing | | | | | | performed at [facility], [address] | | | | [address], [place] | | | | | | [address] | | | | + + + + + + + + | Specimen | + + | Body Fluid - Entire | | heel (body | | structure) | + + + + + + + | Performing | Address | City/State/Zipcode | Phone Number | | Organization | | | | + + + + + | [facility] | [address] | [place] [address] | [phone] | + + + + + Culture, Wound, Superficial (04/06/2019 3:46 PM PST) + + + + + + | Component | Value | Ref Range | Performed | Pathologist | | | | | At | Signature | + + + + + + | Special | LT FOOT | | [facility] | | | Requests | | | LABORATORY | | + + + + + + | Special | Testing performed at | | [facility] | | | Requests | [facility];[address] | LABORATORY | | | | [address];[place] [address] | | | | + + + + + + | RESULT | 1+ENTEROCOCCUS | | [facility] | | | | FAECALISAminoglycosides | | LABORATORY | | | | (except for high-level | | | | | | resistance testing), | | | | | | cephalosporins, | | | | | | clindamycin, and | | | | | | trimethoprim-sulfamethox | | | | | | azole may appear active | | | | | | in vitro but they are | | | | | | not effective | | | | | | clinically. (A) | | | | + + + + + + | RESULT | 1+ENTEROBACTER CLOACAE | | [facility] | | | | COMPLEX (A) | | LABORATORY | | | | (A) | | | | + + + + + + | RESULT | 1+METHICILLIN RESISTANT | | [facility] | | | | S. AUREUS (MRSA) (A) | | LABORATORY | | | | (A) | | | | + + + + + + + + | Specimen | + + | Body Fluid - Entire | | heel (body | | structure) | + + + + +--------+ + | Organism | Antibiotic | Method | Susceptibility | + + +--------+ + | Enterococcus | Ampicillin | JESSICA | SUSCEPTIBLE: | | faecalis | | | Sensitive | + + +--------+ + | Enterococcus | Penicillin G | JESSICA | SUSCEPTIBLE: | | faecalis | | | Sensitive | + + +--------+ + | Enterococcus | Gent Synergy | JESSICA | RESISTANT: | | faecalis | | | Resistant | + + +--------+ + | Enterococcus | Levofloxacin | JESSICA | SUSCEPTIBLE: | | faecalis | | | Sensitive | + + +--------+ + | Enterococcus | Streptomycin synergy | JESSICA | SUSCEPTIBLE: | | faecalis | | | Sensitive | + + +--------+ + | Enterococcus | Vancomycin | JESSICA | SUSCEPTIBLE: | | faecalis | | | Sensitive | + + +--------+ + | Enterobacter cloacae | Cefazolin | JESSICA | RESISTANT: | | complex | | | Resistant | + + +--------+ + | Enterobacter cloacae | Cefepime | JESSICA | SUSCEPTIBLE: | | complex | | | Sensitive | + + +--------+ + | Enterobacter cloacae | Cefoxitin | JESSICA | RESISTANT: | | complex | | | Resistant | + + +--------+ + | Enterobacter cloacae | Ceftazidime | JESSICA | SUSCEPTIBLE: | | complex | | | Sensitive | + + +--------+ + | Enterobacter cloacae | Ceftriaxone | JESSICA | SUSCEPTIBLE: | | complex | | | Sensitive | + + +--------+ + | Enterobacter cloacae | Ciprofloxacin | JESSICA | SUSCEPTIBLE: | | complex | | | Sensitive | + + +--------+ + | Enterobacter cloacae | Gentamicin | JESSICA | SUSCEPTIBLE: | | complex | | | Sensitive | + + +--------+ + | Enterobacter cloacae | Levofloxacin | JESSICA | SUSCEPTIBLE: | | complex | | | Sensitive | + + +--------+ + | Enterobacter cloacae | Tobramycin | JESSICA | SUSCEPTIBLE: | | complex | | | Sensitive | + + +--------+ + | Enterobacter cloacae | Trimethoprim + | JESSICA | SUSCEPTIBLE: | | complex | Sulfamethoxazole | | Sensitive | + + +--------+ + | Staphylococcus | Clindamycin | JESSICA | RESISTANT: | | aureus,Methicillin | | | Resistant | | resistant (MRSA) | | | | + + +--------+ + | Staphylococcus | Erythromycin | JESSICA | RESISTANT: | | aureus,Methicillin | | | Resistant | | resistant (MRSA) | | | | + + +--------+ + | Staphylococcus | Gentamicin | JESSICA | SUSCEPTIBLE: | | aureus,Methicillin | | | Sensitive | | resistant (MRSA) | | | | + + +--------+ + | Staphylococcus | Levofloxacin | JESSICA | RESISTANT: | | aureus,Methicillin | | | Resistant | | resistant (MRSA) | | | | + + +--------+ + | Staphylococcus | Moxifloxacin | JESSICA | RESISTANT: | | aureus,Methicillin | | | Resistant | | resistant (MRSA) | | | | + + +--------+ + | Staphylococcus | Oxacillin | JESSICA | RESISTANT: | | aureus,Methicillin | | | Resistant | | resistant (MRSA) | | | | + + +--------+ + | Staphylococcus | Tetracycline | JESSICA | RESISTANT: | | aureus,Methicillin | | | Resistant | | resistant (MRSA) | | | | + + +--------+ + | Staphylococcus | Trimethoprim + | JESSICA | RESISTANT: | | aureus,Methicillin | Sulfamethoxazole | | Resistant | | resistant (MRSA) | | | | + + +--------+ + | Staphylococcus | Vancomycin | JESSICA | SUSCEPTIBLE: | | aureus,Methicillin | | | Sensitive | | resistant (MRSA) | | | | + + +--------+ + +---+ + | | Comment: Testing | | | performed at [facility], | | | [address], | | | [place] [address] | +---+ + + + + + + | Performing | Address | City/State/Zipcode | Phone Number | | Organization | | | | + + + + + | [facility] | [address] | [place] [address] | [phone] | + + + + + Ferritin (04/06/2019 2:30 PM PST) + + + + + + | Component | Value | Ref Range | Performed | Pathologist | | | | | At | Signature | + + + + + + | Ferritin | 62Comment: Testing | 11 - 450 ng/mL | [facility] | | | | performed at [facility], [address] | | LABORATORY | | | | [address], | | | | | | [place] [address] | | | | + + + + + + + + | Specimen | + + | Blood | + + + + + + + | Performing | Address | City/State/Zipcode | Phone Number | | Organization | | | | + + + + + | [facility] | [address] | [place] [address] | [phone] | + + + + + Vitamin B-12 and Folate (04/06/2019 2:30 PM PST) + + + + + + | Component | Value | Ref Range | Performed | Pathologist | | | | | At | Signature | + + + + + + | VITAMIN | 1,265 | 254 - 1,320 | [facility] | | | B-12 | | pg/mL | LABORATORY | | + + + + + + | FOLATE | 12.3Comment: Testing | >5.4 ng/mL | [facility] | | | | performed at [facility], [address] | | LABORATORY | | | | [address], | | | | | | [place] [address] | | | | + + + + + + + + | Specimen | + + | Blood | + + + + + + + | Performing | Address | City/State/Zipcode | Phone Number | | Organization | | | | + + + + + | [facility] | [address] | [place] [address] | [phone] | + + + + + Troponin I (04/06/2019 2:30 PM PST) + + + + + + | Component | Value | Ref Range | Performed | Pathologist | | | | | At | Signature | + + + + + + | Troponin I | 0.161 (H)Comment: 0.04 | 0.00 - 0.04 | [facility] | | | | ng/mL or less | ng/mL | LABORATORY | | | | Negative, repeat | | | | | | testing in four to six | | | | | | hour ifclinically | | | | | | indicted0.05 to 0.77 | | | | | | ng/mL | | | | | | Suspicious for | | | | | | myocardial injury. | | | | | | Serial measurementsmay | | | | | | be necessary to confirm | | | | | | or exclude the diagnosis | | | | | | of acute | | | | | | coronarysyndrome. Repeat | | | | | | testing in four to six | | | | | | hours if indicated.0.78 | | | | | | or greater ng/mL | | | | | | Consistent with | | | | | | myocardial injury. | | | | | | Clinical andlaboratory | | | | | | correlation recommended. | | | | | | Testing performed at | | | | | | [facility];[address] | | | | | | [facility];[place] [address] | | | | + + + + + + + + | Specimen | + + | Blood | + + + + + + + | Performing | Address | City/State/Zipcode | Phone Number | | Organization | | | | + + + + + | [facility] | [address] | [place] [address] | [phone] | + + + + + POC Glucose (04/06/2019 11:28 AM PST) + + + + + + | Component | Value | Ref Range | Performed | Pathologist | | | | | At | Signature | + + + + + + | Glucose, | 175 (H)Comment: Testing | 65 - 99 mg/dL | [facility] | | | POC | performed at [facility];[address] | | LABORATORY | | | | [address];[place], [place] | | | | | | [address] | | | | + + + + + + + + | Specimen | + + | | + + + + + + + | Performing | Address | City/State/Zipcode | Phone Number | | Organization | | | | + + + + + | [facility] | [address] | [place] [address] | [phone] | + + + + + VAS Lower Extremity Arteries Bilateral (04/06/2019 11:01 AM PST) + + | Specimen | + + | | + + + + + | Impressions | Performed At | + + + | Right lower extremity: Significant proximal SFA stenosis. | [facility] | | Monophasic waveforms demonstrated in the runoff vessels in the | | | calf. No flow demonstrated distal posterior tibial artery. Left | | | lower extremity: Significant stenoses identified in the mid SFA and | | | proximal popliteal arteries. No flow demonstrated in the posterior | | | tibial artery in the left calf. Signed by: Madison Jimenez, | | | Jose Sign Date/Time: 04/06/2019 11:39 AM | | + + + + + + | Narrative | Performed At | + + + | ULTRASOUND ARTERIAL DUPLEX, BILATERAL; LOWER EXTREMITY WITH COLOR | [facility] | | DOPPLER CLINICAL INFORMATION: Nonhealing ulcers, bilateral | | | feet. Diabetic. COMPARISON: None PROCEDURE: Duplex and color | | | Doppler evaluation of the arteries of the lower extremities. | | | FINDINGS: Peak systolic velocity and waveforms. All velocities in | | | cm/sec. Right: Common Femoral Artery: 64, triphasic Profunda | | | Femoral Artery: 111, triphasic Femoral Artery: Proximal: 253, | | | biphasic Mid: 70, biphasic Distal: 72, biphasic Popliteal Artery: | | | 69, biphasic Anterior Tibial Artery: 41, monophasic Posterior Tibial | | | Artery: 106, monophasic (absent distally) Peroneal Artery: 57, | | | monophasic Gore Scale Findings: Diffuse calcific plaque is | | | identified throughout the right lower extremity. There is greater | | | than 60% stenosis involving the proximal SFA. Left: Common | | | Femoral Artery: 86, triphasic Profunda Femoral Artery: 86, triphasic | | | Femoral Artery: Proximal: 72, triphasic Mid: 430, biphasic Distal: | | | 65, biphasic Popliteal Artery: 125, biphasic Anterior Tibial | | | Artery: 52, biphasic Posterior Tibial Artery: Absent Peroneal | | | Artery: 36, biphasic Gore Scale Findings: Diffuse calcific plaque | | | present throughout. There is greater than 70% stenosis involving | | | the mid SFA. There is greater than 50% stenosis involving the | | | proximal popliteal artery. There is near 50% stenosis involving the | | | distal popliteal artery. | | + + + + + | Procedure Note | + + | Johnson, Rad Results In 04/06/2019 11:42 AM PST | | ULTRASOUND ARTERIAL DUPLEX, BILATERAL; LOWER EXTREMITY WITH COLOR | | DOPPLER | | | | CLINICAL INFORMATION: | | Nonhealing ulcers, bilateral feet. Diabetic. | | | | COMPARISON: | | None | | | | PROCEDURE: | | Duplex and color Doppler evaluation of the arteries of the lower | | extremities. | | | | FINDINGS: | | Peak systolic velocity and waveforms. All velocities in cm/sec. | | | | Right: | | Common Femoral Artery: 64, triphasic | | Profunda Femoral Artery: 111, triphasic | | Femoral Artery: | | Proximal: 253, biphasic | | Mid: 70, biphasic | | Distal: 72, biphasic | | Popliteal Artery: 69, biphasic | | Anterior Tibial Artery: 41, monophasic | | Posterior Tibial Artery: 106, monophasic (absent distally) | | Peroneal Artery: 57, monophasic | | | | Gore Scale Findings: Diffuse calcific plaque is identified throughout | | the right lower extremity. There is greater than 60% stenosis | | involving the proximal SFA. | | | | Left: | | Common Femoral Artery: 86, triphasic | | Profunda Femoral Artery: 86, triphasic | | Femoral Artery: | | Proximal: 72, triphasic | | Mid: 430, biphasic | | Distal: 65, biphasic | | Popliteal Artery: 125, biphasic | | Anterior Tibial Artery: 52, biphasic | | Posterior Tibial Artery: Absent | | Peroneal Artery: 36, biphasic | | | | Gore Scale Findings: Diffuse calcific plaque present throughout. There | | is greater than 70% stenosis involving the mid SFA. There is greater | | than 50% stenosis involving the proximal popliteal artery. There is | | near 50% stenosis involving the distal popliteal artery. | | | | IMPRESSION: | | Right lower extremity: Significant proximal SFA stenosis. Monophasic | | waveforms demonstrated in the runoff vessels in the calf. No flow | | demonstrated distal posterior tibial artery. | | | | Left lower extremity: Significant stenoses identified in the mid SFA | | and proximal popliteal arteries. No flow demonstrated in the posterior | | tibial artery in the left calf. | | | | | | | | Signed by: Madison Jimenez Cameron | | Sign Date/Time: 04/06/2019 11:39 AM | + + + +---------+ + + | Performing | Address | City/State/Zipcode | Phone Number | | Organization | | | | + +---------+ + + | [facility] | | | | + +---------+ + + POC Glucose (04/06/2019 9:10 AM PST) + + + + + + | Component | Value | Ref Range | Performed | Pathologist | | | | | At | Signature | + + + + + + | Glucose, | 144 (H)Comment: Testing | 65 - 99 mg/dL | [facility] | | | POC | performed at [facility];[address] | | LABORATORY | | | | [address];[place], [place] | | | | | | [address] | | | | + + + + + + + + | Specimen | + + | | + + + + + + + | Performing | Address | City/State/Zipcode | Phone Number | | Organization | | | | + + + + + | [facility] | [address] | [place] [address] | [phone] | + + + + + Troponin I (04/06/2019 8:31 AM PST) + + + + + + | Component | Value | Ref Range | Performed | Pathologist | | | | | At | Signature | + + + + + + | Troponin I | 0.19 (H)Comment: 0.04 | 0.00 - 0.04 | [facility] | | | | ng/mL or less | ng/mL | LABORATORY | | | | Negative, repeat | | | | | | testing in four to six | | | | | | hour ifclinically | | | | | | indicted0.05 to 0.77 | | | | | | ng/mL | | | | | | Suspicious for | | | | | | myocardial injury. | | | | | | Serial measurementsmay | | | | | | be necessary to confirm | | | | | | or exclude the diagnosis | | | | | | of acute | | | | | | coronarysyndrome. Repeat | | | | | | testing in four to six | | | | | | hours if indicated.0.78 | | | | | | or greater ng/mL | | | | | | Consistent with | | | | | | myocardial injury. | | | | | | Clinical andlaboratory | | | | | | correlation recommended. | | | | | | Testing performed at | | | | | | [facility];[address] | | | | | | [facility];[place] [address] | | | | + + + + + + + + | Specimen | + + | Blood | + + + + + + + | Performing | Address | City/State/Zipcode | Phone Number | | Organization | | | | + + + + + | [facility] | [address] | [place] [address] | [phone] | + + + + + XR Chest AP Portable (04/06/2019 5:20 AM PST) + + | Specimen | + + | | + + + + + | Narrative | Performed At | + + + | CHEST PORTABLE ONE VIEW CLINICAL INFORMATION: Respiratory | [facility] | | failure. COMPARISON: XR CHEST AP PORTABLE (11/26/2017); XR CHEST AP | | | PORTABLE (11/22/2017); CT CHEST WO CONTRAST (11/20/2017); | | | FINDINGS/IMPRESSION: 1. No lines or tubes. 2. Persistent | | | hypoinflation of lungs with streaky parenchymal density in both lung | | | bases and left suprahilar region and right osmani and suprahilar | | | regions. Findings suggests diffuse bilateral atelectasis although | | | pneumonia can not be entirely excluded. Diffuse interstitial | | | prominence has increased since the prior exams and could represent | | | interstitial edema. Probable small bilateral pleural effusions. No | | | pneumothorax. 3. Cardiomediastinal contours are stable. Mild | | | prominence of the cardiac silhouette is exaggerated by the | | | hypoinflation. 4. No pneumothorax. Signed by: | | | Madison Houser, Toby Sign Date/Time: 04/06/2019 6:40 AM | | + + + + + | Procedure Note | + + | Johnson, Rad Results In - 04/06/2019 6:43 AM PST | | CHEST PORTABLE ONE VIEW | | | | CLINICAL INFORMATION: | | Respiratory failure. | | | | COMPARISON: | | XR CHEST AP PORTABLE (11/26/2017); XR CHEST AP PORTABLE (11/22/2017); CT | | CHEST WO CONTRAST (11/20/2017); | | | | FINDINGS/IMPRESSION: | | 1. No lines or tubes. | | 2. Persistent hypoinflation of lungs with streaky parenchymal density | | in both lung bases and left suprahilar region and right osmani and | | suprahilar regions. Findings suggests diffuse bilateral atelectasis | | although pneumonia can not be entirely excluded. Diffuse interstitial | | prominence has increased since the prior exams and could represent | | interstitial edema. Probable small bilateral pleural effusions. No | | pneumothorax. | | 3. Cardiomediastinal contours are stable. Mild prominence of the | | cardiac silhouette is exaggerated by the hypoinflation. | | 4. No pneumothorax. | | | | | | | | | | | | Signed by: Madison Houser Mark | | Sign Date/Time: 04/06/2019 6:40 AM | + + + +---------+ + + | Performing | Address | City/State/Zipcode | Phone Number | | Organization | | | | + +---------+ + + | [facility] | | | | + +---------+ + + Culture, Blood (04/06/2019 3:38 AM PST) + + + + + + | Component | Value | Ref Range | Performed | Pathologist | | | | | At | Signature | + + + + + + | Special | R WRIST | | [facility] | | | Requests | | | LABORATORY | | + + + + + + | Special | Testing performed at | | [facility] | | | Requests | [facility];[address] | | LABORATORY | | | | [address];[place] [address] | | | | + + + + + + | RESULT | NO GROWTH 6 DAYS | | [facility] | | | | | | LABORATORY | | + + + + + + | RESULT | Testing performed at | | [facility] | | | | [facility], [address] | | LABORATORY | | | | [place] | | | | | | [id number]: Testing | | | | | | performed at [facility], [address] | | | | | | [address], [place], [place] | | | | | | [address] | | | | + + + + + + + + | Specimen | + + | Blood - Peripheral | | blood specimen | | (specimen) | + + + + + + + | Performing | Address | City/State/Zipcode | Phone Number | | Organization | | | | + + + + + | [facility] | [address] | [place] [address] | [phone] | + + + + + Culture, Blood (04/06/2019 3:31 AM PST) + + + + + + | Component | Value | Ref Range | Performed | Pathologist | | | | | At | Signature | + + + + + + | Special | L WRIST | | [facility] | | | Requests | | | LABORATORY | | + + + + + + | Special | Testing performed at | | [facility] | | | Requests | [facility];[address] | | LABORATORY | | | | [address];[place] [address] | | | | + + + + + + | RESULT | NO GROWTH 6 DAYS | | [facility] | | | | | | LABORATORY | | + + + + + + | RESULT | Testing performed at | | [facility] | | | | [facility], [address] | | LABORATORY | | | | [place], [place] | | | | | | [id number]: Testing | | | | | | performed at [facility], [address] | | | | | | [address], [place], [place] | | | | | | [address] | | | | + + + + + + + + | Specimen | + + | Blood - Peripheral | | blood specimen | | (specimen) | + + + + + + + | Performing | Address | City/State/Zipcode | Phone Number | | Organization | | | | + + + + + | [facility] | [address] | [place] [address] | [phone] | + + + + + B Type Natriuretic Peptide (04/06/2019 2:48 AM PST) + + + + + + | Component | Value | Ref Range | Performed | Pathologist | | | | | At | Signature | + + + + + + | BNP | 683.69 (H)Comment: | 0 - 100 pg/mL | [facility] | | | | Testing performed at | | LABORATORY | | | | [facility];[address] [address] | | | | | | [address];[place] [address] | | | | + + + + + + + + | Specimen | + + | | + + + + + + + | Performing | Address | City/State/Zipcode | Phone Number | | Organization | | | | + + + + + | [facility] | [address] | [place] [address] | [phone] | + + + + + Lipid Panel (04/06/2019 2:48 AM PST) + + + + + + | Component | Value | Ref Range | Performed | Pathologist | | | | | At | Signature | + + + + + + | Cholesterol | 55 | <200 mg/dL | [facility] | | | | | | LAB[facility]AT[facility] | | + + + + + + | Triglycerid | 78 | <150 mg/dL | [facility] | | | es | | | LABORATORY | | + + + + + + | HDL | 26 (L) | >40 mg/dL | [facility] | | | | | | LABORATORY | | + + + + + + | LDL, | 13Comment: Testing | <100 mg/dL | [facility] | | | Calculated | performed at [facility], [address] | | LABORATORY | | | | [address], | | | | | | [place] [address] | | | | + + + + + + + + | Specimen | + + | Blood | + + + + + + + | Performing | Address | City/State/Zipcode | Phone Number | | Organization | | | | + + + + + | [facility] | [address] | [place] [address] | [phone] | + + + + + Hemoglobin A1C (04/06/2019 2:48 AM PST) + + + + + + | Component | Value | Ref Range | Performed | Pathologist | | | | | At | Signature | + + + + + + | Hemoglobin | 7.8 (H)Comment: HbA1c | 4.0 - 6.0 % | [facility] | | | A1c | method is certified by | | LABORATORY | | | | NGSP and traceable to | | | | | | the DCCT reference | | | | | | method.ADA guidelines | | | | | | indicate: | | | | | | Prediabetes: 5.7 - 6.4 | | | | | | Diabetes: >6.4 | | | | | | Glycemic control for | | | | | | adults with diabetes: | | | | | | <7.0Effective 04/05/2018: | | | | | | Note New Method | | | | + + + + + + | Estimated | 177 (H)Comment: | <154 mg/dL | [facility] | | | Average | Estimated Average | | LABORATORY | | | Glucose | Glucose calculated from | | | | | | hemoglobin A1c by use of | | | | | | the ADArecommended | | | | | | formula.Testing | | | | | | performed at [facility], [address] | | | | | | [facility], | | | | | | [place] [address] | | | | + + + + + + + + | Specimen | + + | Blood | + + + + + + + | Performing | Address | City/State/Zipcode | Phone Number | | Organization | | | | + + + + + | [facility] | [address] | [place] [address] | [phone] | + + + + + Magnesium (04/06/2019 2:48 AM PST) + + + + + + | Component | Value | Ref Range | Performed | Pathologist | | | | | At | Signature | + + + + + + | Magnesium | 1.4 (L)Comment: Testing | 1.7 - 2.4 mg/dL | [facility] | | | | performed at [facility], [address] | | LABORATORY | | | | [address], | | | | | | [place] [address] | | | | + + + + + + + + | Specimen | + + | Blood | + + + + + + + | Performing | Address | City/State/Zipcode | Phone Number | | Organization | | | | + + + + + | [facility] | [address] | [place] [address] | [phone] | + + + + + Comprehensive Metabolic Panel (04/06/2019 2:48 AM PST) + + + + + + | Component | Value | Ref Range | Performed | Pathologist | | | | | At | Signature | + + + + + + | Na | 140 | 135 - 145 | [facility] | | | | | mmol/L | LABORATORY | | + + + + + + | K | 3.7 | 3.5 - 4.9 | [facility] | | | | | mmol/L | LABORATORY | | + + + + + + | Cl | 102 | 99 - 109 mmol/L | [facility] | | | | | | LABORATORY | | + + + + + + | CO2 | 34 (H) | 23 - 32 mmol/L | [facility] | | | | | | LABORATORY | | + + + + + + | Anion Gap | 8 | 5 - 20 mmol/L | [facility] | | | | | | LABORATORY | | + + + + + + | Glucose | 142 (H) | 65 - 99 mg/dL | [facility] | | | | | | LABORATORY | | + + + + + + | BUN | 23 | 8 - 25 mg/dL | [facility] | | | | | | LABORATORY | | + + + + + + | Creatinine | 0.9 | 0.70 - 1.30 | [facility] | | | | | mg/dL | LABORATORY | | + + + + + + | BUN/Creatin | 26 | | [facility] | | | ine Ratio | | | LABORATORY | | + + + + + + | Calcium | 7.5 (L) | 8.5 - 10.5 | [facility] | | | | | mg/dL | LABORATORY | | + + + + + + | Protein, | 7.3 | 6.3 - 8.2 g/dL | [facility] | | | Total | | | LABORATORY | | + + + + + + | Albumin | 2.0 (L) | 3.3 - 4.8 g/dL | [facility] | | | | | | LABORATORY | | + + + + + + | Globulin | 5.3 (H) | 1.3 - 4.9 g/dL | [facility] | | | | | | LABORATORY | | + + + + + + | A/G Ratio | 0.4 (L) | 1.0 - 2.4 | [facility] | | | | | | LABORATORY | | + + + + + + | BILIRUBIN, | 0.6 | 0.1 - 1.5 mg/dL | [facility] | | | TOTAL | | | LABORATORY | | + + + + + + | ALK PHOS | 66 | 35 - 115 U/L | [facility] | | | | | | LABORATORY | | + + + + + + | AST | 21 | 10 - 45 U/L | [facility] | | | | | | LABORATORY | | + + + + + + | ALT | 21 | 10 - 65 U/L | [facility] | | | | | | LAB[facility]ATORY | | + + + + + + | Estimated | >60Comment: GFR <60: | >60 | [facility] | | | GFR | CHRONIC KIDNEY DISEASE, | mL/min/1.73m2 | LABORATORY | | | | IF FOUND OVER A 3 MONTH | | | | | | PERIOD.GFR <15: KIDNEY | | | | | | FAILURE.FOR | | | | | | AMERICANS, MULTIPLY THE | | | | | | CALCULATED GFR BY | | | | | | 1.210.This eGFR is | | | | | | calculated using the | | | | | | MDRD IDMS traceable | | | | | | equation.Testing | | | | | | performed at [facility], [address] | | | | | | [facility], | | | | | | [place] [address] | | | | + + + + + + + + | Specimen | + + | Blood | + + + + + + + | Performing | Address | City/State/Zipcode | Phone Number | | Organization | | | | + + + + + | [facility] | [address] | [place] [address] | [phone] | + + + + + CBC with Differential (04/06/2019 2:48 AM PST) + + + + + + | Component | Value | Ref Range | Performed | Pathologist | | | | | At | Signature | + + + + + + | WBC | 13.24 (H) | 3.80 - 11.00 | [facility] | | | | | K/uL | LABORATORY | | + + + + + + | RBC | 4.18 (L) | 4.20 - 5.70 | [facility] | | | | | M/uL | LABORATORY | | + + + + + + | Hemoglobin | 8.8 (L) | 13.2 - 17.0 | [facility] | | | | | g/dL | LABORATORY | | + + + + + + | Hematocrit | 27.6 (L) | 39.0 - 50.0 % | [facility] | | | | | | LABORATORY | | + + + + + + | MCV | 66.1 (L) | 80.0 - 100.0 fl | [facility] | | | | | | LABORATORY | | + + + + + + | MCH | 21.1 (L) | 27.0 - 34.0 pg | [facility] | | | | | | LABORATORY | | + + + + + + | MCHC | 31.9 (L) | 32.0 - 35.5 | [facility] | | | | | g/dL | LABORATORY | | + + + + + + | RDW-SD | 47.7 | 37 - 53 fl | [facility] | | | | | | LABORATORY | | + + + + + + | Platelet | 426 (H) | 150 - 400 K/uL | [facility] | | | Count | | | LABORATORY | | + + + + + + | MPV | 7.4 | fl | [facility] | | | | | | LABORATORY | | + + + + + + | Diff Type | MANUAL | | [facility] | | | | | | LABORATORY | | + + + + + + | % Segmented | 78 | % | [facility] | | | | | | LABORATORY | | | Neutrophils | | | | | + + + + + + | % | 10 | % | [facility] | | | Lymphocytes | | | LABORATORY | | + + + + + + | % Monocytes | 12 | % | [facility] | | | | | | LABORATORY | | + + + + + + | Neutrophils | 10.33 (H) | 1.90 - 7.40 | [facility] | | | , Absolute | | K/uL | LABORATORY | | + + + + + + | Absolute | 1.32 | 1.00 - 3.90 | [facility] | | | Lymphocytes | | K/uL | LABORATORY | | + + + + + + | Absolute | 1.59 (H) | 0.00 - 0.80 | [facility] | | | Monocytes | | K/uL | LABORATORY | | + + + + + + | RBC | 3+Comment: | | [facility] | | | Morphology | MICRO2+HYPONORMAL PLT | | LABORATORY | | | | MORPHTesting performed | | | | | | at [facility];[address] | | | | [address];[place] [address] | | | | | |NORMAL PLT MORPH | | | | | |Testing performed at [facility];[address];[place] [address] | | | | | | | | | | + + + + + + + + | Specimen | + + | Blood | + + + + + + + | Performing | Address | City/State/Zipcode | Phone Number | | Organization | | | | + + + + + | [facility] | [address] | [place] [address] | [phone] | + + + + + Protime INR (04/06/2019 2:48 AM PST) + + + + + + | Component | Value | Ref Range | Performed | Pathologist | | | | | At | Signature | + + + + + + | INR | 1.2Comment: REFERENCE | | [facility] | | | | RANGE:0.9 - 1.2 | | LABORATORY | | | | NON-ANTICOAGULATED2.0 | | | | | | - 3.0 ALL OTHER | | | | | | THERAPEUTIC | | | | | | INDICATIONS2.5 - 3.5 | | | | | | MECHANICAL HEART VALVES, | | | | | | RECURRENT OR SYSTEMIC | | | | | | EMBOLISMTesting | | | | | | performed at [facility];[address];[place] | | | | | | [address] | | | | + + + + + + + + | Specimen | + + | Blood | + + + + + + + | Performing | Address | City/State/Zipcode | Phone Number | | Organization | | | | + + + + + | [facility] | [address] | [place] [address] | [phone] | + + + + + PTT (04/06/2019 2:48 AM PST) + + + + + + | Component | Value | Ref Range | Performed | Pathologist | | | | | At | Signature | + + + + + + | PTT | 34 (H)Comment: Testing | 23 - 32 seconds | [facility] | | | | performed at [facility];[address] | | LABORATORY | | | | [address];[place] | | | | | | [address] | | | | + + + + + + + + | Specimen | + + | Blood | + + + + + + + | Performing | Address | City/State/Zipcode | Phone Number | | Organization | | | | + + + + + | [facility] | [address] | [place] [address] | [phone] | + + + + + Troponin I (04/06/2019 2:48 AM PST) + + + + + + | Component | Value | Ref Range | Performed | Pathologist | | | | | At | Signature | + + + + + + | Troponin I | 0.198 (H)Comment: 0.04 | 0.00 - 0.04 | [facility] | | | | ng/mL or less | ng/mL | LABORATORY | | | | Negative, repeat | | | | | | testing in four to six | | | | | | hour ifclinically | | | | | | indicted0.05 to 0.77 | | | | | | ng/mL | | | | | | Suspicious for | | | | | | myocardial injury. | | | | | | Serial measurementsmay | | | | | | be necessary to confirm | | | | | | or exclude the diagnosis | | | | | | of acute | | | | | | coronarysyndrome. Repeat | | | | | | testing in four to six | | | | | | hours if indicated.0.78 | | | | | | or greater ng/mL | | | | | | Consistent with | | | | | | myocardial injury. | | | | | | Clinical andlaboratory | | | | | | correlation recommended. | | | | | | Testing performed at | | | | | | [facility];[address] | | | | | | [address];[place] [address] | | | | + + + + + + + + | Specimen | + + | Blood | + + + + + + + | Performing | Address | City/State/Zipcode | Phone Number | | Organization | | | | + + + + + | [facility] | [address] | [place] [address] | [phone] | + + + + + documented in this encounter Visit Diagnoses + + | Diagnosis | + + | Bacteremia - Primary | + + | Insulin dependent diabetes mellitus Type II or unspecified type diabetes mellitus | | without mention of complication, not stated as uncontrolled | + + | Peripheral vascular disease (HCC) Peripheral vascular disease, unspecified | + + | Other osteomyelitis of right foot (HCC) | + + | Essential hypertension Unspecified essential hypertension | + + | Acute left hemiparesis (HCC) Hemiplegia, unspecified, affecting unspecified side | + + | Chronic osteomyelitis (HCC) Chronic osteomyelitis, site unspecified | + + | Acute osteomyelitis of right calcaneus (HCC) | + + | Osteomyelitis of metatarsal (HCC) Unspecified osteomyelitis, ankle and foot | + + | Gangrene of left foot (HCC) | + + | Severe arterial insufficiency of lower extremity (HCC) | + + | Polymicrobial bacterial infection | + + | MRSA infection Methicillin resistant Staphylococcus aureus in conditions classified | | elsewhere and of unspecified site | + + | Chest pain, unspecified type | + + | Insulin dependent diabetes mellitus Type II or unspecified type diabetes mellitus | | without mention of complication, not stated as uncontrolled | + + | Class 1 obesity with serious comorbidity in adult | + + | GERD (gastroesophageal reflux disease) Esophageal reflux | + + | NSTEMI (non-ST elevated myocardial infarction) (HCC) Acute myocardial infarction, | | subendocardial infarction, episode of care unspecified | + + | Acute decompensated heart failure (HCC) | + + | Acute respiratory failure (HCC) Acute respiratory failure | + + | History of stroke Transient ischemic attack (TIA), and cerebral infarction without | | residual deficits | + + | Chronic pain Other chronic pain | + + | Hypomagnesemia Disorders of magnesium metabolism | + + | Gross hematuria | + + documented in this encounter Admitting Diagnoses + + | Diagnosis | + + | Acute left hemiparesis (HCC) Hemiplegia, unspecified, affecting unspecified side | + + | Other osteomyelitis of right foot (HCC) | + + documented in this encounter Administered Medications + +--------+ +--------+------+------+ | Medication Order | MAR | Action | Dose | Rate | Site | | | Action | Date | | | | + +--------+ +--------+------+------+ | acetaminophen (TYLENOL) tablet | Given | 04/15/19 | 650 mg | | | | 650 mg 650 mg, Oral, EVERY 4 | | 20 3:30 | | | | | HOURS PRN, Pain, or fever >= 38.6 | | AM PST | | | | | C (101.5 F), Starting Fri | | | | | | | 04/06/19 at 0205 | | | | | | + +--------+ +--------+------+------+ +-------+ +--------+---+---+ | Given | 04/11/19 | 650 mg | | | | | 20 9:46 | | | | | | PM PST | | | | +-------+ +--------+---+---+ | Given | 04/11/19 | 650 mg | | | | | 20 9:29 | | | | | | AM PST | | | | +-------+ +--------+---+---+ +---+---+ | | | +---+---+ + +-------+ +---------+---+---+ | albuterol 1.25 mg/3 mL | Given | 04/16/19 | 1.25 mg | | | | nebulizer solution 1.25 mg 1.25 | | 20 6:08 | | | | | mg, Nebulization, RT EVERY 4 | | AM PST | | | | | HOURS PRN, Shortness of Breath, | | | | | | | Starting 04/10/19 at 2121, RT | | | | | | | will administer., | | | | | | + +-------+ +---------+---+---+ +---+---+ | | | +---+---+ + +-------+ +------+---+---+ | amLODIPine (NORVASC) tablet 5 | Given | 04/17/19 | 5 mg | | | | mg 5 mg, Oral, DAILY, First dose | | 20 9:52 | | | | | on 04/08/19 at 1430 | | AM PST | | | | + +-------+ +------+---+---+ +-------+ +------+---+---+ | Given | 04/16/19 | 5 mg | | | | | 20 1:26 | | | | | | PM PST | | | | +-------+ +------+---+---+ | Given | 04/15/19 | 5 mg | | | | | 20 8:58 | | | | | | AM PST | | | | +-------+ +------+---+---+ +---+---+ | | | +---+---+ + +-------+ +------+---+---+ | amLODIPine (NORVASC) tablet 5 | Given | 04/18/19 | 5 mg | | | | mg 5 mg, Oral, ONCE, 04/18/19 | | 20 12:18 | | | | | at 1215, For 1 dose | | PM PST | | | | + +-------+ +------+---+---+ +---+---+ | | | +---+---+ + +-------+ +-------+---+---+ | aspirin chewable tablet 81 mg | Given | 04/07/19 | 81 mg | | | | 81 mg, Oral, DAILY, First dose on | | 20 8:48 | | | | | 04/06/19 at 0900 | | AM PST | | | | + +-------+ +-------+---+---+ +-------+ +-------+---+---+ | Given | 04/06/19 | 81 mg | | | | | 20 9:35 | | | | | | AM PST | | | | +-------+ +-------+---+---+ +---+---+ | | | +---+---+ + +-------+ +-------+---+---+ | aspirin chewable tablet 81 mg | Given | 04/21/19 | 81 mg | | | | 81 mg, Oral, DAILY, First dose on | | 20 9:54 | | | | | Digna 04/12/19 at 0900 | | AM PST | | | | + +-------+ +-------+---+---+ +-------+ +-------+---+---+ | Given | 04/20/19 | 81 mg | | | | | 20 8:08 | | | | | | AM PST | | | | +-------+ +-------+---+---+ | Given | 04/19/19 | 81 mg | | | | | 20 8:37 | | | | | | AM PST | | | | +-------+ +-------+---+---+ +---+---+ | | | +---+---+ + +-------+ +-------+---+---+ | aspirin EC tablet 81 mg 81 mg, | Given | 04/18/19 | 81 mg | | | | Oral, ONCE, 04/18/19 at 1215, | | 20 12:16 | | | | | For 1 dose | | PM PST | | | | + +-------+ +-------+---+---+ +---+---+ | | | +---+---+ + +-------+ +-------+---+---+ | atorvaSTATin (LIPITOR) tablet | Given | 04/20/19 | 10 mg | | | | 10 mg 10 mg, Oral, NIGHTLY, | | 20 8:12 | | | | | First dose (after last | | PM PST | | | | | modification) on 04/07/19 at | | | | | | | 2100 | | | | | | + +-------+ +-------+---+---+ +-------+ +-------+---+---+ | Given | 04/19/19 | 10 mg | | | | | 20 10:00 | | | | | | PM PST | | | | +-------+ +-------+---+---+ | Given | 04/18/19 | 10 mg | | | | | 20 8:05 | | | | | | PM PST | | | | +-------+ +-------+---+---+ +---+---+ | | | +---+---+ + +-------+ +-------+---+---+ | atorvaSTATin (LIPITOR) tablet | Given | 04/06/19 | 80 mg | | | | 80 mg 80 mg, Oral, NIGHTLY, | | 20 8:18 | | | | | First dose on 04/06/19 at 0345 | | PM PST | | | | + +-------+ +-------+---+---+ +---+---+ | | | +---+---+ + +-------+ +---+---+---+ | cadexomer iodine (IODOSORB) 0.9 | Given | 04/20/19 | | | | | % gel Topical, EVERY OTHER DAY, | | 20 8:10 | | | | | First dose on Tue04/06/19 at | | AM PST | | | | | 1700, Cleanse wound with saline, | | | | | | | Iodosorb gel to wound base, cover | | | | | | | with dry gauze, followed by roll | | | | | | | gauze to secure. Prevalon boot, | | | | | | | Apply to: Other (Comment), Other | | | | | | | location: left foot | | | | | | + +-------+ +---+---+---+ +-------+ +---+---+---+ | Given | 04/16/19 | | | | | | 20 10:07 | | | | | | AM PST | | | | +-------+ +---+---+---+ | Given | 04/14/19 | | | | | | 20 11:49 | | | | | | AM PST | | | | +-------+ +---+---+---+ + +---+ | | | + +---+ | cadexomer iodine (IODOSORB) 0.9 | | | % gel Topical, EVERY OTHER DAY, | | | First dose (after last | | | modification) on 04/22/19 at | | | 0900, Cleanse wounds with saline, | | | Iodosorb gel to wound base, | | | cover with dry gauze, followed by | | | roll gauze to secure. Prevalon | | | boot, Apply to: Other (Comment), | | | Other location: right and left | | | foot ulcers | | + +---+ | | | + +---+ + +-------+ +---------+---+---+ | carvedilol (COREG) tablet 12.5 | Given | 04/09/19 | 12.5 mg | | | | mg 12.5 mg, Oral, 2 TIMES DAILY | | 20 8:14 | | | | | WITH BREAKFAST & DINNER, First | | AM PST | | | | | dose on 04/07/19 at 2045 | | | | | | + +-------+ +---------+---+---+ +-------+ +---------+---+---+ | Given | 04/08/19 | 12.5 mg | | | | | 20 4:19 | | | | | | PM PST | | | | +-------+ +---------+---+---+ | Given | 04/08/19 | 12.5 mg | | | | | 20 8:09 | | | | | | AM PST | | | | +-------+ +---------+---+---+ +---+---+ | | | +---+---+ + +-------+ +---------+---+---+ | carvedilol (COREG) tablet 6.25 | Given | 04/07/19 | 6.25 mg | | | | mg 6.25 mg, Oral, ONCE, Sat | | 20 3:51 | | | | | 04/07/19 at 1500, For 1 dose | | PM PST | | | | + +-------+ +---------+---+---+ +---+---+ | | | +---+---+ + +-------+ +---------+---+---+ | carvedilol (COREG) tablet 6.25 | Given | 04/21/19 | 6.25 mg | | | | mg 6.25 mg, Oral, 2 TIMES DAILY | | 20 9:54 | | | | | WITH BREAKFAST & DINNER, First | | AM PST | | | | | dose (after last modification) on | | | | | | | 04/09/19 at 1700 | | | | | | + +-------+ +---------+---+---+ +-------+ +---------+---+---+ | Given | 04/20/19 | 6.25 mg | | | | | 20 5:27 | | | | | | PM PST | | | | +-------+ +---------+---+---+ | Given | 04/20/19 | 6.25 mg | | | | | 20 8:08 | | | | | | AM PST | | | | +-------+ +---------+---+---+ +---+---+ | | | +---+---+ + +-------+ +---------+---+---+ | carvedilol (COREG) tablet 6.25 | Given | 04/18/19 | 6.25 mg | | | | mg 6.25 mg, Oral, ONCE, Wed | | 20 12:17 | | | | | 04/18/19 at 1215, For 1 dose | | PM PST | | | | + +-------+ +---------+---+---+ +---+---+ | | | +---+---+ + +---------+ +-----+-------+---+ | cefTRIAXone (ROCEPHIN) IVPB 2 g | New Bag | 04/06/19 | 2 g | 100 | | | 2 g, Intravenous, Administer | | 20 9:13 | | mL/hr | | | over 30 Minutes, EVERY 24 HOURS | | AM PST | | | | | (Daily), First dose on Tue | | | | | | | 04/06/19 at 0900, Keep in | | | | | | | refrigerator., Indications: | | | | | | | Bacteremia | | | | | | + +---------+ +-----+-------+---+ +---+---+ | | | +---+---+ + +---------+ +-----+-------+---+ | cefTRIAXone (ROCEPHIN) IVPB 2 g | New Bag | 04/09/19 | 2 g | 100 | | | 2 g, Intravenous, Administer | | 20 8:13 | | mL/hr | | | over 30 Minutes, EVERY 24 HOURS | | AM PST | | | | | (Daily), First dose (after last | | | | | | | modification) on 04/07/19 at | | | | | | | 0900, Keep in refrigerator., | | | | | | | Indications: Bacteremia | | | | | | + +---------+ +-----+-------+---+ +---------+ +-----+-------+---+ | New Bag | 04/08/19 | 2 g | 100 | | | | 20 10:00 | | mL/hr | | | | AM PST | | | | +---------+ +-----+-------+---+ | New Bag | 04/07/19 | 2 g | 100 | | | | 20 9:03 | | mL/hr | | | | AM PST | | | | +---------+ +-----+-------+---+ +---+---+ | | | +---+---+ + +-------+ +-------+---+---+ | clopidogrel (PLAVIX) tablet 75 | Given | 04/21/19 | 75 mg | | | | mg 75 mg, Oral, DAILY, First | | 20 9:54 | | | | | dose on [facility] 04/12/19 at 0900 | | AM PST | | | | + +-------+ +-------+---+---+ +-------+ +-------+---+---+ | Given | 04/20/19 | 75 mg | | | | | 20 8:08 | | | | | | AM PST | | | | +-------+ +-------+---+---+ | Given | 04/19/19 | 75 mg | | | | | 20 8:37 | | | | | | AM PST | | | | +-------+ +-------+---+---+ +---+---+ | | | +---+---+ + +-------+ +-------+---+---+ | clopidogrel (PLAVIX) tablet 75 | Given | 04/18/19 | 75 mg | | | | mg 75 mg, Oral, ONCE, Wed | | 20 12:17 | | | | | 04/18/19 at 1215, For 1 dose | | PM PST | | | | + +-------+ +-------+---+---+ +---+---+ | | | +---+---+ + +-------+ +--------+---+---+ | clopidogrel (PLAVIX) tablet | Given | 04/11/19 | 300 mg | | | | Oral, PRN, Starting 04/11/19 | | 20 1:49 | | | | | at 1349 | | PM PST | | | | + +-------+ +--------+---+---+ + +---+ | | | + +---+ | dextrose 10% (D10W) infusion | | | at 50 mL/hr, Intravenous, | | | CONTINUOUS PRN, hypoglycemia, | | | Starting 04/06/19 at 0207, | | | Start infusion if unable to | | | maintain blood glucose greater | | | than 70 mg/dL after two rounds of | | | hypoglycemia treatment. Recheck | | | blood glucose 30 minutes after | | | starting D10W then at least | | | hourly and PRN until it is | | | discontinued. Call provider to | | | discuss parameters for D10W | | | discontinuation., | | + +---+ | | | + +---+ | dextrose 50% injection 12.5-25 | | | g 12.5-25 g, Intravenous, PRN, | | | Low Blood Sugar, Starting Fri | | | 04/06/19 at 0207, For blood | | | glucose 50-69 mg/dl - give 12.5 g | | | For blood glucose less than 50 | | | mg/dl - give 25 g, | | + +---+ | | | + +---+ | dextrose 50% injection 12.5-25 | | | g 12.5-25 g, Intravenous, EVERY | | | 15 MIN PRN, Low Blood Sugar, For | | | hypoglycemia. Give 12.5g (25ml) | | | IV if blood glucose 50-69 | | | mg/dL. Give 25g (50ml) IV if | | | blood glucose < 50, Starting Wed | | | 04/18/19 at 1456, Give over 2 min. | | | Repeat in 15 min if blood | | | glucose remains < 70 mg/dL. | | | Repeat blood glucose in 30 min | | | once blood glucose > 70., | | + +---+ | | | + +---+ + +-------+ +-----+---+---+ | diclofenac (VOLTAREN) 1% gel 4 | Given | 04/21/19 | 4 g | | | | g 4 g, Topical, 4 TIMES DAILY, | | 20 12:17 | | | | | First dose on 04/15/19 at | | PM PST | | | | | 1700, Do not cover area with | | | | | | | occlusive dressings or wash area | | | | | | | for 1 hour after application. Use | | | | | | | the dosing card to correctly | | | | | | | measure each dose. (2 g = 2.25 | | | | | | | inches, 4 g = 4.5 inches) After | | | | | | | using the dosing card, hold end | | | | | | | with fingertips, rinse and dry. | | | | | | | Store dosing card until next | | | | | | | use., Apply to: Back-Lower | | | | | | + +-------+ +-----+---+---+ +-------+ +-----+---+---+ | Given | 04/21/19 | 4 g | | | | | 20 9:54 | | | | | | AM PST | | | | +-------+ +-----+---+---+ | Given | 04/20/19 | 4 g | | | | | 20 8:13 | | | | | | PM PST | | | | +-------+ +-----+---+---+ +---+---+ | | | +---+---+ + +-------+ +-------+---+---+ | DULoxetine (CYMBALTA) DR | Given | 04/21/19 | 60 mg | | | | capsule 60 mg 60 mg, Oral, | | 20 9:53 | | | | | DAILY, First dose on Tue04/06/19 | | AM PST | | | | | at 0900, Do not open capsule., | | | | | | + +-------+ +-------+---+---+ +-------+ +-------+---+---+ | Given | 04/20/19 | 60 mg | | | | | 20 8:08 | | | | | | AM PST | | | | +-------+ +-------+---+---+ | Given | 04/19/19 | 60 mg | | | | | 20 8:36 | | | | | | AM PST | | | | +-------+ +-------+---+---+ +---+---+ | | | +---+---+ + +-------+ +--------+---+---+ | dutasteride (AVODART) capsule | Given | 04/20/19 | 0.5 mg | | | | 0.5 mg 0.5 mg, Oral, DAILY, | | 20 1:44 | | | | | First dose on 04/08/19 at | | PM PST | | | | | 1430, Reproductive Risk: Use | | | | | | | appropriate handling precautions. | | | | | | | Women of childbearing age should | | | | | | | avoid direct contact with | | | | | | | capsules. Do not open capsules., | | | | | | + +-------+ +--------+---+---+ +-------+ +--------+---+---+ | Given | 04/19/19 | 0.5 mg | | | | | 20 2:08 | | | | | | PM PST | | | | +-------+ +--------+---+---+ | Given | 04/17/19 | 0.5 mg | | | | | 20 1:53 | | | | | | PM PST | | | | +-------+ +--------+---+---+ +---+---+ | | | +---+---+ + + + +---+ +---+ | electrolyte-A (PLASMALYTE-A) | Continue | 04/18/19 | | 20 mL/hr | | | infusion at 30 mL/hr, | d Bag | 20 3:20 | | | | | Intravenous, CONTINUOUS, Starting | | PM PST | | | | | 04/18/19 at 1100 | | | | | | + + + +---+ +---+ +-------+ +---------+---+---+ | Given | 04/18/19 | 300 mLs | | | | | 20 2:55 | | | | | | PM PST | | | | +-------+ +---------+---+---+ | Given | 04/18/19 | 100 mLs | | | | | 20 2:08 | | | | | | PM PST | | | | +-------+ +---------+---+---+ +---+---+ | | | +---+---+ + +-------+ +--------+---+---+ | fentaNYL (PF) injection 25-100 | Given | 04/18/19 | 50 mcg | | | | mcg 25-100 mcg, Intravenous, | | 20 3:21 | | | | | EVERY 2 HOURS PRN, Pain, Starting | | PM PST | | | | | 04/11/19 at 1445 | | | | | | + +-------+ +--------+---+---+ +-------+ +---------+---+---+ | Given | 04/18/19 | 50 mcg | | | | | 20 1:41 | | | | | | PM PST | | | | +-------+ +---------+---+---+ | Given | 04/18/19 | 100 mcg | | | | | 20 12:39 | | | | | | PM PST | | | | +-------+ +---------+---+---+ +---+---+ | | | +---+---+ + +-------+ +--------+---+---+ | fentaNYL (PF) injection 25-50 | Given | 04/18/19 | 50 mcg | | | | mcg 25-50 mcg, Intravenous, | | 20 4:24 | | | | | EVERY 5 MIN PRN, Pain, Initial | | PM PST | | | | | postop medication for URGENT PAIN | | | | | | | OR ESCALATING PAIN, Starting Wed | | | | | | | 04/18/19 at 1456, For 4 doses, | | | | | | | First dose must be lowest dose. | | | | | | | Use Pasero Sedation Scale. | | | | | | | [Opioid tolerant = One week or | | | | | | | longer, [id number]-[id number] use of | | | | | | | at least the following DAILY | | | | | | | dose: 60mg oral morphine, 60mg | | | | | | | oral hydrocodone, 30mg oral | | | | | | | oxycodone, 8mg oral | | | | | | | hydromorphone, fentanyl patch | | | | | | | 25mcg/hr, or equivalent dose of | | | | | | | another opioid], | | | | | | + +-------+ +--------+---+---+ +-------+ +--------+---+---+ | Given | 04/18/19 | 25 mcg | | | | | 20 4:15 | | | | | | PM PST | | | | +-------+ +--------+---+---+ +---+---+ | | | +---+---+ + +-------+ +--------+---+---+ | fentaNYL (PF) injection | Given | 04/11/19 | 25 mcg | | | | Intravenous, PRN, Starting Wed | | 20 1:29 | | | | | 04/11/19 at 1233 | | PM PST | | | | + +-------+ +--------+---+---+ +-------+ +--------+---+---+ | Given | 04/11/19 | 50 mcg | | | | | 20 12:33 | | | | | | PM PST | | | | +-------+ +--------+---+---+ +---+---+ | | | +---+---+ + +-------+ +--------+---+---+ | fentaNYL (PF) injection | Given | 04/13/19 | 50 mcg | | | | Intravenous, PRN, Starting Fri | | 20 3:00 | | | | | 04/13/19 at 1330 | | PM PST | | | | + +-------+ +--------+---+---+ +-------+ +--------+---+---+ | Given | 04/13/19 | 50 mcg | | | | | 20 2:32 | | | | | | PM PST | | | | +-------+ +--------+---+---+ | Given | 04/13/19 | 50 mcg | | | | | 20 2:03 | | | | | | PM PST | | | | +-------+ +--------+---+---+ +---+---+ | | | +---+---+ + +---------+ +--------+ +---+ | ferric gluconate (FERRLECIT) | New Bag | 04/10/19 | 250 mg | 40 mL/hr | | | 250 mg in sodium chloride 0.9% | | 20 11:52 | | | | | 100 mL IVPB 250 mg, Intravenous, | | PM PST | | | | | Administer over 3 Hours, DAILY, | | | | | | | First dose on 04/07/19 at | | | | | | | 1600, For 4 doses | | | | | | + +---------+ +--------+ +---+ +---------+ +--------+ +---+ | New Bag | 04/09/19 | 250 mg | 40 mL/hr | | | | 20 10:12 | | | | | | PM PST | | | | +---------+ +--------+ +---+ | New Bag | 04/08/19 | 250 mg | 40 mL/hr | | | | 20 4:46 | | | | | | PM PST | | | | +---------+ +--------+ +---+ +---+---+ | | | +---+---+ + +-------+ +-------+---+---+ | furosemide (LASIX) injection 40 | Given | 04/09/19 | 40 mg | | | | mg 40 mg, Intravenous, 2 TIMES | | 20 8:13 | | | | | DAILY 0800 & 1600, First dose | | AM PST | | | | | (after last modification) on Fri | | | | | | | 04/06/19 at 0845 | | | | | | + +-------+ +-------+---+---+ +-------+ +-------+---+---+ | Given | 04/08/19 | 40 mg | | | | | 20 4:18 | | | | | | PM PST | | | | +-------+ +-------+---+---+ | Given | 04/08/19 | 40 mg | | | | | 20 8:09 | | | | | | AM PST | | | | +-------+ +-------+---+---+ +---+---+ | | | +---+---+ + +-------+ +-------+---+---+ | furosemide (LASIX) tablet 40 mg | Given | 04/12/19 | 40 mg | | | | 40 mg, Oral, DAILY, First dose | | 20 9:18 | | | | | on 04/10/19 at 0900 | | AM PST | | | | + +-------+ +-------+---+---+ +-------+ +-------+---+---+ | Given | 04/11/19 | 40 mg | | | | | 20 9:31 | | | | | | AM PST | | | | +-------+ +-------+---+---+ | Given | 04/10/19 | 40 mg | | | | | 20 7:55 | | | | | | AM PST | | | | +-------+ +-------+---+---+ +---+---+ | | | +---+---+ + +-------+ +-------+---+---+ | furosemide (LASIX) tablet 40 mg | Given | 04/13/19 | 40 mg | | | | 40 mg, Oral, 2 TIMES DAILY 0800 | | 20 6:00 | | | | | & 1600, First dose (after last | | PM PST | | | | | modification) on Tue04/13/19 at | | | | | | | 1715 | | | | | | + +-------+ +-------+---+---+ +---+---+ | | | +---+---+ + +-------+ +--------+---+---+ | gabapentin (NEURONTIN) capsule | Given | 04/21/19 | 300 mg | | | | 300 mg 300 mg, Oral, 3 TIMES | | 20 9:53 | | | | | DAILY, First dose on Tue04/06/19 | | AM PST | | | | | at 0900 | | | | | | + +-------+ +--------+---+---+ +-------+ +--------+---+---+ | Given | 04/20/19 | 300 mg | | | | | 20 8:12 | | | | | | PM PST | | | | +-------+ +--------+---+---+ | Given | 04/20/19 | 300 mg | | | | | 20 1:44 | | | | | | PM PST | | | | +-------+ +--------+---+---+ +---+---+ | | | +---+---+ + +-------+ +--------+---+---+ | gabapentin (NEURONTIN) capsule | Given | 04/18/19 | 300 mg | | | | 300 mg 300 mg, Oral, ONCE, Wed | | 20 12:16 | | | | | 04/18/19 at 1215, For 1 dose | | PM PST | | | | + +-------+ +--------+---+---+ +---+---+ | | | +---+---+ + +-------+ +--------+---+---+ | heparin 1,000 units/mL | Given | 04/11/19 | 2,000 | | | | injection Intravenous, PRN, | | 20 1:14 | Units | | | | Starting 04/11/19 at 1245 | | PM PST | | | | + +-------+ +--------+---+---+ +-------+ +--------+---+---+ | Given | 04/11/19 | 7,000 | | | | | 20 12:45 | Units | | | | | PM PST | | | | +-------+ +--------+---+---+ +---+---+ | | | +---+---+ + +-------+ +--------+---+---+ | heparin 1,000 units/mL | Given | 04/13/19 | 2,000 | | | | injection Intravenous, PRN, | | 20 2:22 | Units | | | | Starting 04/13/19 at 1342 | | PM PST | | | | + +-------+ +--------+---+---+ +-------+ +--------+---+---+ | Given | 04/13/19 | 7,000 | | | | | 20 1:42 | Units | | | | | PM PST | | | | +-------+ +--------+---+---+ +---+---+ | | | +---+---+ + +-------+ +--------+---+ + | heparin 5,000 units/mL | Given | 04/08/19 | 5,000 | | Abdomen- | | injection 5,000 Units 5,000 | | 20 6:02 | Units | | RLQ | | Units, Subcutaneous, EVERY 8 | | AM PST | | | | | HOURS (3 times per day), First | | | | | | | dose on Tue04/06/19 at 0600 | | | | | | + +-------+ +--------+---+ + +-------+ +--------+---+ + | Given | 04/07/19 | 5,000 | | Abdomen- | | | 20 8:38 | Units | | LLQ | | | PM PST | | | | +-------+ +--------+---+ + | Given | 04/07/19 | 5,000 | | Abdomen- | | | 20 2:54 | Units | | LLQ | | | PM PST | | | | +-------+ +--------+---+ + +---+---+ | | | +---+---+ + +-------+ +--------+---+ + | heparin 5,000 units/mL | Given | 04/21/19 | 5,000 | | Abdomen- | | injection 5,000 Units 5,000 | | 20 9:54 | Units | | LLQ | | Units, Subcutaneous, EVERY 12 | | AM PST | | | | | HOURS (2 times per day), First | | | | | | | dose on [facility] 04/12/19 at 2100 | | | | | | + +-------+ +--------+---+ + +-------+ +--------+---+ + | Given | 04/20/19 | 5,000 | | Abdomen- | | | 20 8:12 | Units | | RUQ | | | PM PST | | | | +-------+ +--------+---+ + | Given | 04/20/19 | 5,000 | | Abdomen- | | | 20 8:11 | Units | | LLQ | | | AM PST | | | | +-------+ +--------+---+ + +---+---+ | | | +---+---+ + +-------+ +-------+---+---+ | hydrALAZINE (APRESOLINE) | Given | 04/16/19 | 10 mg | | | | injection 10 mg 10 mg, | | 20 3:25 | | | | | Intravenous, ONCE, 04/16/19 at | | AM PST | | | | | 0315, For 1 dose | | | | | | + +-------+ +-------+---+---+ + +---+ | | | + +---+ | hydrALAZINE (APRESOLINE) | | | injection 5 mg 5 mg, | | | Intravenous, EVERY 20 MINUTES | | | PRN, For SBP > 160, DBP > 100, | | | Starting 04/18/19 at 1456, For | | | 5 doses, Hold if HR > 100. | | | Maximum total dose 40 mg. Use | | | labetalol first if available., | | + +---+ | | | + +---+ + +-------+ + +---+---+ | HYDROcodone-acetaminophen | Given | 04/20/19 | 1 tablet | | | | (NORCO) 5-325 mg per tablet 1-2 | | 20 8:12 | | | | | tablet 1-2 tablet, Oral, EVERY 4 | | PM PST | | | | | HOURS PRN, Pain, Starting Wed | | | | | | | 04/11/19 at 1445 | | | | | | + +-------+ + +---+---+ +-------+ + +---+---+ | Given | 04/17/19 | 2 | | | | | 20 10:26 | tablets | | | | | PM PST | | | | +-------+ + +---+---+ | Given | 04/16/19 | 1 tablet | | | | | 20 1:41 | | | | | | PM PST | | | | +-------+ + +---+---+ +---+---+ | | | +---+---+ + +-------+ + +---+ + | insulin glargine (LANTUS | Given | 04/08/19 | 10 Units | | Arm-Righ | | SOLOSTAR) injection (pen) | | 20 11:50 | | | t Upper | | Units 10 Units, Subcutaneous, | | AM PST | | | | | ONCE, 04/08/19 at 1200, For 1 | | | | | | | dose, For subcutaneous use only. | | | | | | | Basal (long acting) insulin., If | | | | | | | NPO: Decrease dose, by: 50% | | | | | | + +-------+ + +---+ + +---+---+ | | | +---+---+ + +-------+ + +---+ + | insulin glargine (LANTUS | Given | 04/07/19 | 15 Units | | Abdomen- | | SOLOSTAR) injection (pen) | | 8:39 | | | LLQ | | Units 15 Units, Subcutaneous, | | AM PST | | | | | EVERY MORNING, First dose (after | | | | | | | last modification) on Tue04/06/19 | | | | | | | at 0900, For subcutaneous use | | | | | | | only. Basal (long acting) | | | | | | | insulin., If NPO: Give dose as | | | | | | | ordered. | | | | | | + +-------+ + +---+ + +-------+ + +---+ + | Given | 04/06/19 | 15 Units | | Abdomen- | | | 20 9:40 | | | RLQ | | | AM PST | | | | +-------+ + +---+ + +---+---+ | | | +---+---+ + +-------+ + +---+ + | insulin glargine (LANTUS | Given | 04/08/19 | 20 Units | | Arm-Left | | SOLOSTAR) injection (pen) 20 | | 20 8:09 | | | Upper | | Units 20 Units, Subcutaneous, | | AM PST | | | | | EVERY MORNING, First dose (after | | | | | | | last modification) on 04/08/19 | | | | | | | at 0900, For subcutaneous use | | | | | | | only. Basal (long acting) | | | | | | | insulin., If NPO: Give dose as | | | | | | | ordered. | | | | | | + +-------+ + +---+ + +---+---+ | | | +---+---+ + +-------+ + +---+ + | insulin glargine (LANTUS | Given | 04/21/19 | 30 Units | | Abdomen- | | SOLOSTAR) injection (pen) | | 20 9:55 | | | LUQ | | Units 30 Units, Subcutaneous, | | AM PST | | | | | EVERY MORNING, First dose (after | | | | | | | last modification) on 04/09/19 | | | | | | | at 0900, For subcutaneous use | | | | | | | only. Basal (long acting) | | | | | | | insulin., If NPO: Give dose as | | | | | | | ordered. | | | | | | + +-------+ + +---+ + +-------+ + +---+ + | Given | 04/20/19 | 30 Units | | Abdomen- | | | 20 8:11 | | | LUQ | | | AM PST | | | | +-------+ + +---+ + | Given | 04/19/19 | 30 Units | | Abdomen- | | | 20 11:03 | | | RLQ | | | AM PST | | | | +-------+ + +---+ + +---+---+ | | | +---+---+ + +-------+ +---------+---+ + | insulin glargine (LANTUS | Given | 04/07/19 | 5 Units | | Abdomen- | | SOLOSTAR) injection (pen) 5 Units | | 20 3:51 | | | LLQ | | 5 Units, Subcutaneous, ONCE, | | PM PST | | | | | 04/07/19 at 1445, For 1 dose, | | | | | | | For subcutaneous use only. Basal | | | | | | | (long acting) insulin., If NPO: | | | | | | | Decrease dose, by: 50% | | | | | | + +-------+ +---------+---+ + +---+---+ | | | +---+---+ + +-------+ +---------+---+ + | insulin lispro (humaLOG) | Given | 04/12/19 | 4 Units | | Abdomen- | | injection (vial) 0-12 Units 0-12 | | 20 4:40 | | | RUQ | | Units, Subcutaneous, 4 TIMES | | PM PST | | | | | DAILY WITH MEALS & NIGHTLY, First | | | | | | | dose on Tue04/06/19 at 0800, | | | | | | | CORRECTION SCALE: Blood Glucose | | | | | | | (BG) < 150: None | | | | | | | BG 150-200: DAY: 2 units. | | | | | | | NIGHT: 0 units BG 201-250: DAY: | | | | | | | 4 units. NIGHT: 2 units BG | | | | | | | 251-300: DAY: 6 units. NIGHT: | | | | | | | 4 units BG 301-350: DAY: 8 | | | | | | | units. NIGHT: 6 units BG | | | | | | | 351-400: DAY: 10 units. NIGHT: 8 | | | | | | | units BG > 400 : DAY: 12 | | | | | | | units. NIGHT: 10 units | | | | | | | AND CALL PROVIDER | | | | | | | , Use DAY DOSE for doses | | | | | | | scheduled: AC, NPO, Daytime | | | | | | | [id number] Use NIGHT DOSE for | | | | | | | doses scheduled: HS, 3AM, | | | | | | | Nighttime [id number] If the BG is | | | | | | | not checked before the patient | | | | | | | starts eating, do not give | | | | | | | correction insulin. If HS insulin | | | | | | | given, check blood glucose at | | | | | | | 3AM. Only for use with U-100 | | | | | | | insulin syringe., | | | | | | + +-------+ +---------+---+ + +-------+ +---------+---+ + | Given | 04/12/19 | 1 Units | | Abdomen- | | | 20 12:59 | | | RUQ | | | PM PST | | | | +-------+ +---------+---+ + | Given | 04/11/19 | 4 Units | | Arm-Left | | | 20 6:49 | | | Upper | | | PM PST | | | | +-------+ +---------+---+ + +---+---+ | | | +---+---+ + +-------+ +---------+---+ + | insulin lispro (humaLOG) | Given | 04/21/19 | 3 Units | | Abdomen- | | injection (vial) 0-18 Units 0-18 | | 20 12:16 | | | LLQ | | Units, Subcutaneous, 3 TIMES | | PM PST | | | | | DAILY WITH MEALS, First dose on | | | | | | | 04/13/19 at 1700, CORRECTION | | | | | | | INSULIN Give at mealtime | | | | | | | regardless of oral intake - even | | | | | | | if NPO FSBG less than 150 = | | | | | | | none 151 - 200 | | | | | | | = 3 units 201 | | | | | | | - 250 = 6 units | | | | | | | 251 - 300 = 9 units | | | | | | | 301 - 350 = 12 units | | | | | | | 351 - 400 = 15 | | | | | | | units greater than 400 = | | | | | | | 18 units Only for use with U-100 | | | | | | | insulin syringe., | | | | | | + +-------+ +---------+---+ + +-------+ +---------+---+ + | Given | 04/20/19 | 6 Units | | Abdomen- | | | 20 5:31 | | | LLQ | | | PM PST | | | | +-------+ +---------+---+ + | Given | 04/20/19 | 9 Units | | Arm-Left | | | 20 12:44 | | | Upper | | | PM PST | | | | +-------+ +---------+---+ + +---+---+ | | | +---+---+ + +-------+ +--------+---+---+ | iohexol (OMNIPAQUE 240) 240 | Given | 04/11/19 | 51 mLs | | | | mg/mL injection Intravenous, | | 20 1:52 | | | | | PRN, Starting 04/11/19 at 1352 | | PM PST | | | | + +-------+ +--------+---+---+ +---+---+ | | | +---+---+ + +-------+ +--------+---+---+ | iohexol (OMNIPAQUE 240) 240 | Given | 04/13/19 | 52 mLs | | | | mg/mL injection Intravenous, | | 20 3:06 | | | | | PRN, Starting 04/13/19 at 1506 | | PM PST | | | | + +-------+ +--------+---+---+ +---+---+ | | | +---+---+ + +-------+ +--------+---+---+ | lactulose liquid 30 mL 30 mL, | Given | 04/08/19 | 30 mLs | | | | Oral, 2 TIMES DAILY, First dose | | 20 10:17 | | | | | on 04/08/19 at 0930 | | AM PST | | | | + +-------+ +--------+---+---+ +---+---+ | | | +---+---+ + +-------+ +--------+---+---+ | lactulose liquid 30 mL 30 mL, | Given | 04/09/19 | 30 mLs | | | | Oral, 4 TIMES DAILY, First dose | | 20 8:12 | | | | | (after last modification) on Sun | | AM PST | | | | | 04/08/19 at 1700 | | | | | | + +-------+ +--------+---+---+ +-------+ +--------+---+---+ | Given | 04/08/19 | 30 mLs | | | | | 20 8:22 | | | | | | PM PST | | | | +-------+ +--------+---+---+ | Given | 04/08/19 | 30 mLs | | | | | 20 4:19 | | | | | | PM PST | | | | +-------+ +--------+---+---+ + +---+ | | | + +---+ | lactulose liquid 30 mL 30 mL, | | | Oral, DAILY PRN, Constipation, | | | Starting 04/10/19 at 0000 | | + +---+ | | | + +---+ + +---------+ +---------+---+ + | lidocaine (LIDODERM) 5% patch 1 | Patch | 04/08/19 | 1 patch | | Back-Lef | | patch 1 patch, Transdermal, | Applied | 20 10:00 | | | t Middle | | DAILY, First dose on Tue04/06/19 | | AM PST | | | | | at 0900, Apply for 12 hours, then | | | | | | | remove for 12 hours., Time to | | | | | | | remove patch: 9:00 PM | | | | | | + +---------+ +---------+---+ + + + +---------+---+ + | Patch Applied | 04/07/19 | 1 patch | | Back-Lef | | | 20 8:41 | | | t Middle | | | AM PST | | | | + + +---------+---+ + +---+---+ | | | +---+---+ + +-------+ +--------+---+---+ | lidocaine 1% injection PRN, | Given | 04/11/19 | 10 mLs | | | | Starting 04/11/19 at 1233 | | 20 12:33 | | | | | | | PM PST | | | | + +-------+ +--------+---+---+ +---+---+ | | | +---+---+ + +-------+ +--------+---+---+ | lidocaine 1% injection PRN, | Given | 04/13/19 | 10 mLs | | | | Starting 04/13/19 at 1330 | | 20 1:30 | | | | | | | PM PST | | | | + +-------+ +--------+---+---+ +---+---+ | | | +---+---+ + +-------+ +-------+---+---+ | lisinopril (PRINIVIL, ZESTRIL) | Given | 04/08/19 | 10 mg | | | | tablet 10 mg 10 mg, Oral, DAILY, | | 20 8:00 | | | | | First dose on Tue04/06/19 at | | AM PST | | | | | 0900 | | | | | | + +-------+ +-------+---+---+ +-------+ +-------+---+---+ | Given | 04/07/19 | 10 mg | | | | | 20 8:48 | | | | | | AM PST | | | | +-------+ +-------+---+---+ | Given | 04/06/19 | 10 mg | | | | | 20 9:35 | | | | | | AM PST | | | | +-------+ +-------+---+---+ +---+---+ | | | +---+---+ + +-------+ +-------+---+---+ | losartan (COZAAR) tablet 25 mg | Given | 04/21/19 | 25 mg | | | | 25 mg, Oral, DAILY, First dose | | 20 9:54 | | | | | (after last modification) on [facility]ign[facility] | | AM PST | | | | | 04/19/19 at 0900 | | | | | | + +-------+ +-------+---+---+ +-------+ +-------+---+---+ | Given | 04/20/19 | 25 mg | | | | | 20 8:08 | | | | | | AM PST | | | | +-------+ +-------+---+---+ | Given | 04/19/19 | 25 mg | | | | | 20 8:42 | | | | | | AM PST | | | | +-------+ +-------+---+---+ +---+---+ | | | +---+---+ + +-------+ +-------+---+---+ | losartan (COZAAR) tablet 50 mg | Given | 04/17/19 | 50 mg | | | | 50 mg, Oral, DAILY, First dose | | 20 9:49 | | | | | on 04/09/19 at 0900 | | AM PST | | | | + +-------+ +-------+---+---+ +-------+ +-------+---+---+ | Given | 04/16/19 | 50 mg | | | | | 20 1:26 | | | | | | PM PST | | | | +-------+ +-------+---+---+ | Given | 04/15/19 | 50 mg | | | | | 20 8:58 | | | | | | AM PST | | | | +-------+ +-------+---+---+ +---+---+ | | | +---+---+ + +-------+ +--------+---+---+ | magnesium oxide (MAG-OX) tablet | Given | 04/21/19 | 400 mg | | | | 400 mg 400 mg, Oral, DAILY, | | 20 9:53 | | | | | First dose on 04/07/19 at 1445 | | AM PST | | | | + +-------+ +--------+---+---+ +-------+ +--------+---+---+ | Given | 04/20/19 | 400 mg | | | | | 20 8:08 | | | | | | AM PST | | | | +-------+ +--------+---+---+ | Given | 04/19/19 | 400 mg | | | | | 20 8:37 | | | | | | AM PST | | | | +-------+ +--------+---+---+ +---+---+ | | | +---+---+ + +---------+ +-----+ +---+ | magnesium sulfate 4 g/100 mL | New Bag | 04/06/19 | 4 g | 25 mL/hr | | | IVPB 4 g 4 g, Intravenous, | | 20 10:12 | | | | | Administer over 240 Minutes, | | AM PST | | | | | ONCE, 04/06/19 at 0845, For 1 | | | | | | | dose, Maximum recommended | | | | | | | infusion rate = 1 gram/hour., | | | | | | + +---------+ +-----+ +---+ + +---+ | | | + +---+ | menthol (HALLS) lozenge 1 | | | lozenge 1 maria c, Buccal, EVERY | | | 2 HOURS PRN, Sore Throat, | | | Starting [facility] 04/12/19 at 2120 | | + +---+ | | | + +---+ | metoclopramide (REGLAN) 5 mg/mL | | | injection 10 mg 10 mg, | | | Intravenous, EVERY 4 HOURS PRN, | | | Nausea, Vomiting, Starting Fri | | | 04/13/19 at 1636, Use if | | | ondansetron and prochlorperazine | | | ineffective after 30min or not | | | ordered. Use PO option unless NPO | | | status or unable to tolerate. | | | Protect from light., | | + +---+ | | | + +---+ | metoclopramide (REGLAN) tablet | | | 10 mg 10 mg, Oral, EVERY 4 HOURS | | | PRN, Nausea, Vomiting, Starting | | | 04/13/19 at 1636, Use if | | | ondansetron and prochlorperazine | | | ineffective after 30min or not | | | ordered, | | + +---+ | | | + +---+ + +-------+ +-------+---+---+ | metoprolol succinate | Given | 04/07/19 | 25 mg | | | | (TOPROL-XL) ER tablet 25 mg 25 | | 20 8:48 | | | | | mg, Oral, DAILY, First dose on | | AM PST | | | | | 04/06/19 at 0845, Tablet may | | | | | | | be cut where scored but do not | | | | | | | crush., | | | | | | + +-------+ +-------+---+---+ +-------+ +-------+---+---+ | Given | 04/06/19 | 25 mg | | | | | 20 9:35 | | | | | | AM PST | | | | +-------+ +-------+---+---+ +---+---+ | | | +---+---+ + +-------+ +------+---+---+ | midazolam (VERSED) 1 mg/mL | Given | 04/11/19 | 1 mg | | | | injection Intravenous, PRN, | | 20 1:29 | | | | | Starting 04/11/19 at 1233 | | PM PST | | | | + +-------+ +------+---+---+ +-------+ +------+---+---+ | Given | 04/11/19 | 1 mg | | | | | 20 12:33 | | | | | | PM PST | | | | +-------+ +------+---+---+ +---+---+ | | | +---+---+ + +-------+ +------+---+---+ | midazolam (VERSED) 1 mg/mL | Given | 04/13/19 | 1 mg | | | | injection Intravenous, PRN, | | 20 3:00 | | | | | Starting 04/13/19 at 1330 | | PM PST | | | | + +-------+ +------+---+---+ +-------+ +------+---+---+ | Given | 04/13/19 | 1 mg | | | | | 20 2:32 | | | | | | PM PST | | | | +-------+ +------+---+---+ | Given | 04/13/19 | 1 mg | | | | | 20 2:03 | | | | | | PM PST | | | | +-------+ +------+---+---+ +---+---+ | | | +---+---+ + +-------+ +------+---+---+ | morphine injection 2-6 mg 2-6 | Given | 04/09/19 | 2 mg | | | | mg, Intravenous, EVERY 2 HOURS | | 20 3:30 | | | | | PRN, Pain, Starting 04/06/19 | | AM PST | | | | | at 0205, Slow IV push, not faster | | | | | | | than 2 mg/minute. If ineffective | | | | | | | or not tolerated, use | | | | | | | hydromorphone IV if ordered., | | | | | | + +-------+ +------+---+---+ +-------+ +------+---+---+ | Given | 04/08/19 | 2 mg | | | | | 20 7:49 | | | | | | PM PST | | | | +-------+ +------+---+---+ | Given | 04/07/19 | 2 mg | | | | | 20 11:43 | | | | | | PM PST | | | | +-------+ +------+---+---+ +---+---+ | | | +---+---+ + +-------+ +---------+---+---+ | nitroglycerin injection | Given | 04/11/19 | 200 mcg | | | | Intravenous, PRN, Starting Wed | | 20 1:35 | | | | | 04/11/19 at 1335 | | PM PST | | | | + +-------+ +---------+---+---+ +---+---+ | | | +---+---+ + +-------+ +------+---+---+ | ondansetron (ZOFRAN) injection | Given | 04/09/19 | 4 mg | | | | 4 mg 4 mg, Intravenous, EVERY 6 | | 20 9:01 | | | | | HOURS PRN, Nausea, Vomiting, | | PM PST | | | | | Starting 04/06/19 at 0205, | | | | | | | First line agent, | | | | | | + +-------+ +------+---+---+ +---+---+ | | | +---+---+ + +-------+ +------+---+---+ | ondansetron (ZOFRAN) injection | Given | 04/18/19 | 4 mg | | | | 4 mg 4 mg, Intravenous, EVERY 6 | | 20 2:43 | | | | | HOURS PRN, Nausea, Vomiting, | | PM PST | | | | | Starting 04/13/19 at 1636, | | | | | | | First line agent. Use PO option | | | | | | | unless NPO status or unable to | | | | | | | tolerate., | | | | | | + +-------+ +------+---+---+ +-------+ +------+---+---+ | Given | 04/16/19 | 4 mg | | | | | 20 5:35 | | | | | | AM PST | | | | +-------+ +------+---+---+ +---+---+ | | | +---+---+ + +-------+ +------+---+---+ | ondansetron (ZOFRAN) injection | Given | 04/18/19 | 4 mg | | | | 4 mg 4 mg, Intravenous, ONCE | | 20 4:16 | | | | | PRN, Nausea, Vomiting, Starting | | PM PST | | | | | 04/18/19 at 1513, For 1 dose, | | | | | | | Recovery/Phase I | | | | | | + +-------+ +------+---+---+ +---+---+ | | | +---+---+ + +-------+ +------+---+---+ | ondansetron (ZOFRAN) injection | Given | 04/21/19 | 4 mg | | | | 4-8 mg 4-8 mg, Intravenous, | | 20 4:00 | | | | | EVERY 6 HOURS PRN, Nausea, | | AM PST | | | | | Vomiting, Starting 04/18/19 at | | | | | | | 1745 | | | | | | + +-------+ +------+---+---+ +---+---+ | | | +---+---+ + +-------+ +------+---+---+ | oxyCODONE (ROXICODONE) tablet | Given | 04/09/19 | 5 mg | | | | 5-10 mg 5-10 mg, Oral, EVERY 4 | | 20 9:01 | | | | | HOURS PRN, Pain, back pain, | | PM PST | | | | | Starting 04/06/19 at 0330 | | | | | | + +-------+ +------+---+---+ +-------+ +------+---+---+ | Given | 04/08/19 | 5 mg | | | | | 20 9:39 | | | | | | AM PST | | | | +-------+ +------+---+---+ | Given | 04/07/19 | 5 mg | | | | | 20 4:37 | | | | | | PM PST | | | | +-------+ +------+---+---+ +---+---+ | | | +---+---+ + +-------+ +-------+---+---+ | perflutren lipid microspheres | Given | 04/14/19 | 2 mLs | | | | (DEFINITY) injection 2 mL 2 mL, | | 20 11:20 | | | | | Intravenous, ONCE PRN, Other, | | AM PST | | | | | Starting 04/14/19 at 1142, For | | | | | | | 1 dose, Echo | | | | | | + +-------+ +-------+---+---+ + +---+ | | | + +---+ | piperacillin-tazobactam (ZOSYN) | | | 3.375 g in sodium chloride 0.9% | | | 100 mL IVPB 3.375 g, | | | Intravenous, Administer over 4 | | | Hours, EVERY 8 HOURS INTERVAL, | | | First dose (after last reorder) | | | on 04/21/19 at 1330, | | | Extended-Infusion Zosyn Protocol: | | | infuse over 4 hours when | | | maintenance dose has a frequency | | | of Q8H (or Q12H for renal dose | | | adjustment). Activate system and | | | mix before use., Indications: | | | NON-PURULENT SKIN AND SOFT TISSUE | | | INFECTION | | + +---+ | | | + +---+ + +---------+ +---------+-------+---+ | piperacillin-tazobactam (ZOSYN) | New Bag | 04/09/19 | 3.375 g | 100 | | | IVPB 3.375 g 3.375 g, | | 20 5:03 | | mL/hr | | | Intravenous, Administer over 0.5 | | PM PST | | | | | Hours, ONCE, 04/09/19 at 1400, | | | | | | | For 1 dose, Extended-Infusion | | | | | | | Zosyn Protocol: infuse bolus over | | | | | | | 30 minutes, followed in 4 hours | | | | | | | by maintenance dosing. Keep in | | | | | | | refrigerator., Indications: | | | | | | | Bacteremia, NON-PURULENT SKIN AND | | | | | | | SOFT TISSUE INFECTION | | | | | | + +---------+ +---------+-------+---+ +---+---+ | | | +---+---+ + +---------+ +---------+-------+---+ | piperacillin-tazobactam (ZOSYN) | New Bag | 04/21/19 | 3.375 g | 12.5 | | | IVPB 3.375 g 3.375 g, | | 20 4:39 | | mL/hr | | | Intravenous, Administer over 4 | | AM PST | | | | | Hours, EVERY 8 HOURS INTERVAL, | | | | | | | First dose on Tue04/09/19 at | | | | | | | 1830, Extended-Infusion Zosyn | | | | | | | Protocol: infuse over 4 hours | | | | | | | when maintenance dose has a | | | | | | | frequency of Q8H (or Q12H for | | | | | | | renal dose adjustment). Keep in | | | | | | | refrigerator., Indications: | | | | | | | NON-PURULENT SKIN AND SOFT TISSUE | | | | | | | INFECTION | | | | | | + +---------+ +---------+-------+---+ +---------+ +---------+-------+---+ | New Bag | 04/20/19 | 3.375 g | 12.5 | | | | 20 8:12 | | mL/hr | | | | PM PST | | | | +---------+ +---------+-------+---+ | New Bag | 04/20/19 | 3.375 g | 12.5 | | | | 20 12:33 | | mL/hr | | | | PM PST | | | | +---------+ +---------+-------+---+ +---+---+ | | | +---+---+ + +-------+ +--------+---+---+ | potassium chloride (KLOR-CON) | Given | 04/06/19 | 40 mEq | | | | ER tablet 40 mEq 40 mEq, Oral, | | 20 9:35 | | | | | ONCE, 04/06/19 at 0845, For 1 | | AM PST | | | | | dose, May take with food to | | | | | | | decrease GI upset., | | | | | | + +-------+ +--------+---+---+ +---+---+ | | | +---+---+ + +-------+ +--------+---+---+ | potassium chloride (KLOR-CON) | Given | 04/07/19 | 40 mEq | | | | ER tablet 40 mEq 40 mEq, Oral, 2 | | 20 8:47 | | | | | TIMES DAILY, First dose (after | | AM PST | | | | | last reorder) on Tue04/06/19 at | | | | | | | 1830, May take with food to | | | | | | | decrease GI upset., | | | | | | + +-------+ +--------+---+---+ +-------+ +--------+---+---+ | Given | 04/06/19 | 40 mEq | | | | | 20 5:41 | | | | | | PM PST | | | | +-------+ +--------+---+---+ +---+---+ | | | +---+---+ + +-------+ + +---+---+ | 27-0.8 mg multivitamin | Given | 04/21/19 | 1 tablet | | | | 1 tablet 1 tablet, Oral, DAILY, | | 20 9:54 | | | | | First dose on 04/07/19 at | | AM PST | | | | | 1445 | | | | | | + +-------+ + +---+---+ +-------+ + +---+---+ | Given | 04/20/19 | 1 tablet | | | | | 20 8:08 | | | | | | AM PST | | | | +-------+ + +---+---+ | Given | 04/19/19 | 1 tablet | | | | | 20 8:37 | | | | | | AM PST | | | | +-------+ + +---+---+ + +---+ | | | + +---+ | prochlorperazine (COMPAZINE) | | | injection 10 mg 10 mg, | | | Intravenous, ONCE PRN, Nausea, | | | Vomiting, Starting 04/18/19 at | | | 1550, For 1 dose, Use | | | Ondansetron first if both are | | | ordered., | | + +---+ | | | + +---+ + +-------+ +-------+---+---+ | protamine injection PRN, | Given | 04/13/19 | 30 mg | | | | Starting 04/13/19 at 1512 | | 20 3:12 | | | | | | | PM PST | | | | + +-------+ +-------+---+---+ +---+---+ | | | +---+---+ + +-------+ + +---+---+ | psyllium (METAMUCIL SMOOTH | Given | 04/21/19 | 1 packet | | | | TEXTURE) 28 % packet 1 packet 1 | | 20 9:56 | | | | | packet, Oral, 3 TIMES DAILY, | | AM PST | | | | | First dose on Tue04/10/19 at | | | | | | | 0945, Mix with 8 oz. water or | | | | | | | other liquid., | | | | | | + +-------+ + +---+---+ +-------+ + +---+---+ | Given | 04/20/19 | 1 packet | | | | | 20 1:44 | | | | | | PM PST | | | | +-------+ + +---+---+ | Given | 04/20/19 | 1 packet | | | | | 20 8:18 | | | | | | AM PST | | | | +-------+ + +---+---+ +---+---+ | | | +---+---+ + +-------+ +--------+---+---+ | regadenoson (LEXISCAN) | Given | 04/16/19 | 0.4 mg | | | | injection 0.4 mg 0.4 mg, | | 20 11:30 | | | | | Intravenous, ONCE, 04/16/19 at | | AM PST | | | | | 1130, For 1 dose, Give IV push | | | | | | | over 10 seconds, then follow | | | | | | | immediately with 5 mL saline | | | | | | | flush., Nuclear Medicine | | | | | | + +-------+ +--------+---+---+ +---+---+ | | | +---+---+ + +-------+ +--------+---+---+ | tamsulosin (FLOMAX) capsule 0.4 | Given | 04/12/19 | 0.4 mg | | | | mg 0.4 mg, Oral, NIGHTLY, First | | 20 8:18 | | | | | dose on 04/08/19 at 2100, Do | | PM PST | | | | | not crush or chew capsule. If | | | | | | | unable to swallow, may open | | | | | | | capsule and sprinkle over acidic | | | | | | | soft food (applesauce, yogurt) or | | | | | | | in a small quantity of acidic | | | | | | | fruit juice (orange, grape). | | | | | | | Administer immediately (do not | | | | | | | allow granules to dissolve). Do | | | | | | | not administer via tube routes., | | | | | | + +-------+ +--------+---+---+ +-------+ +--------+---+---+ | Given | 04/11/19 | 0.4 mg | | | | | 20 9:38 | | | | | | PM PST | | | | +-------+ +--------+---+---+ | Given | 04/10/19 | 0.4 mg | | | | | 20 10:05 | | | | | | PM PST | | | | +-------+ +--------+---+---+ +---+---+ | | | +---+---+ + +-------+ +--------+---+---+ | tamsulosin (FLOMAX) capsule 0.4 | Given | 04/21/19 | 0.4 mg | | | | mg 0.4 mg, Oral, 2 TIMES DAILY, | | 20 9:53 | | | | | First dose (after last | | AM PST | | | | | modification) on Tue04/13/19 at | | | | | | | 2100, Do not crush or chew | | | | | | | capsule. If unable to swallow, | | | | | | | may open capsule and sprinkle | | | | | | | over acidic soft food | | | | | | | (applesauce, yogurt) or in a | | | | | | | small quantity of acidic fruit | | | | | | | juice (orange, grape). Administer | | | | | | | immediately (do not allow | | | | | | | granules to dissolve). Do not | | | | | | | administer via tube routes., | | | | | | + +-------+ +--------+---+---+ +-------+ +--------+---+---+ | Given | 04/20/19 | 0.4 mg | | | | | 20 8:12 | | | | | | PM PST | | | | +-------+ +--------+---+---+ | Given | 04/20/19 | 0.4 mg | | | | | 20 8:08 | | | | | | AM PST | | | | +-------+ +--------+---+---+ +---+---+ | | | +---+---+ + +-------+ + +---+---+ | technetium TC-99M sestamibi | Given | 04/16/19 | 10 | | | | (CARDIOLITE) injection 10 | | 20 10:00 | millicur | | | | millicurie 10 millicurie, | | AM PST | ies | | | | Intravenous, ONCE, 04/16/19 at | | | | | | | 1000, For 1 dose, Nuclear | | | | | | | Medicine | | | | | | + +-------+ + +---+---+ +---+---+ | | | +---+---+ + +-------+ + +---+---+ | technetium TC-99M sestamibi | Given | 04/16/19 | 30 | | | | (CARDIOLITE) injection 30 | | 20 12:59 | millicur | | | | millicurie 30 millicurie, | | PM PST | ies | | | | Intravenous, ONCE, 04/16/19 at | | | | | | | 1130, For 1 dose, Nuclear | | | | | | | Medicine | | | | | | + +-------+ + +---+---+ +---+---+ | | | +---+---+ + +-------+ +-------+---+---+ | torsemide (DEMADEX) tablet 20 | Given | 04/21/19 | 20 mg | | | | mg 20 mg, Oral, DAILY, First | | 20 10:02 | | | | | dose on 04/14/19 at 0900, Hold | | AM PST | | | | | SBP less than 90, | | | | | | + +-------+ +-------+---+---+ +-------+ +-------+---+---+ | Given | 04/20/19 | 20 mg | | | | | 20 8:08 | | | | | | AM PST | | | | +-------+ +-------+---+---+ | Given | 04/17/19 | 20 mg | | | | | 20 9:51 | | | | | | AM PST | | | | +-------+ +-------+---+---+ +---+---+ | | | +---+---+ + +-------+ +-------+---+---+ | torsemide (DEMADEX) tablet 20 | Given | 04/18/19 | 20 mg | | | | mg 20 mg, Oral, ONCE, Tue | | 20 12:18 | | | | | 04/18/19 at 1215, For 1 dose | | PM PST | | | | + +-------+ +-------+---+---+ +---+---+ | | | +---+---+ + +---------+ + +--------+---+ | vancomycin in NS (VANCOCIN) | New Bag | 04/12/19 | 1,250 mg | 166.7 | | | IVPB 1,250 mg 1,250 mg (rounded | | 20 2:42 | | mL/hr | | | from 1,336.5 mg = 15 mg/kg | | PM PST | | | | | 89.1 kg Adjusted weight), | | | | | | | Intravenous, Administer over 90 | | | | | | | Minutes, EVERY 12 HOURS INTERVAL, | | | | | | | First dose on [facility]ign[facility] 04/12/19 at | | | | | | | 0030, Keep in refrigerator., | | | | | | | Indications: | | | | | | | 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 | | | | | | + +---------+ + +--------+---+ +---------+ + +--------+---+ | New Bag | 04/11/19 | 1,250 mg | 166.7 | | | | 20 11:48 | | mL/hr | | | | PM PST | | | | +---------+ + +--------+---+ +---+---+ | | | +---+---+ + +---------+ + +--------+---+ | vancomycin in NS (VANCOCIN) | New Bag | 04/14/19 | 1,250 mg | 166.7 | | | IVPB 1,250 mg 1,250 mg, | | 20 9:26 | | mL/hr | | | Intravenous, Administer over 90 | | PM PST | | | | | Minutes, EVERY 12 HOURS INTERVAL, | | | | | | | First dose on Tue04/13/19 at | | | | | | | 1600, Level due 04/14 @0300 - | | | | | | | please do not give 0400 dose | | | | | | | until level resulted and | | | | | | | discussed with [facility]. Thank you. | | | | | | | Keep in refrigerator., | | | | | | | Indications: Osteomyelitis | | | | | | + +---------+ + +--------+---+ +---------+ + +--------+---+ | New Bag | 04/14/19 | 1,250 mg | 166.7 | | | | 20 10:20 | | mL/hr | | | | AM PST | | | | +---------+ + +--------+---+ | New Bag | 04/13/19 | 1,250 mg | 166.7 | | | | 20 9:07 | | mL/hr | | | | PM PST | | | | +---------+ + +--------+---+ +---+---+ | | | +---+---+ + +---------+ +--------+-------+---+ | vancomycin in saline IVPB 1.75 | New Bag | 04/16/19 | 1.75 g | 250 | | | g 1.75 g (1,750 mg), | | 20 2:41 | | mL/hr | | | Intravenous, Administer over 120 | | PM PST | | | | | Minutes, EVERY 24 HOURS INTERVAL, | | | | | | | First dose on 04/15/19 at | | | | | | | 1300, Keep in refrigerator., | | | | | | | Indications: | | | | | | | 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, | | | | | | | Osteomyelitis | | | | | | + +---------+ +--------+-------+---+ +---------+ +--------+-------+---+ | New Bag | 04/15/19 | 1.75 g | 250 | | | | 20 2:28 | | mL/hr | | | | PM PST | | | | +---------+ +--------+-------+---+ +---+---+ | | | +---+---+ + +---------+ +--------+-------+---+ | vancomycin in saline IVPB 1.75 | New Bag | 04/20/19 | 1.75 g | 250 | | | g 1.75 g (1,750 mg), | | 20 1:44 | | mL/hr | | | Intravenous, Administer over 120 | | PM PST | | | | | Minutes, EVERY 24 HOURS INTERVAL, | | | | | | | First dose (after last reorder) | | | | | | | on 04/17/19 at 1400, Vanomycin | | | | | | | trough planned for 04/23 @1300, | | | | | | | prior to 1400 dose. Do note give | | | | | | | 04/23 1400 dose until this trough | | | | | | | has resulted and been discussed | | | | | | | with the pharmacist. 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, | | | | | | | Osteomyelitis | | | | | | + +---------+ +--------+-------+---+ + + +--------+-------+---+ | New Bag | 04/19/19 | 1.75 g | 250 | | | | 20 2:09 | | mL/hr | | | | PM PST | | | | + + +--------+-------+---+ | Continued Bag | 04/18/19 | 1.75 g | 250 | | | | 20 3:20 | | mL/hr | | | | PM PST | | | | + + +--------+-------+---+ +---+---+ | | | +---+---+ + +---------+ +-----+-------+---+ | vancomycin in saline IVPB 2 g | New Bag | 04/13/19 | 2 g | 250 | | | 2 g (2,000 mg), Intravenous, | | 20 2:06 | | mL/hr | | | Administer over 120 Minutes, | | AM PST | | | | | ONCE, 04/13/19 at 0230, For 1 | | | | | | | dose, One time dose to make up | | | | | | | for loading dose that was not | | | | | | | given on 04/11. Keep in | | | | | | | refrigerator., Indications: | | | | | | | Osteomyelitis | | | | | | + +---------+ +-----+-------+---+ + +---+ | | | + +---+ | vancomycin per pharmacy | | | PHARMACY CONSULT, Starting Wed | | | 04/11/19 at 0952, Indications: | | | Methicillin-Resistant | | | Staphylococcus Aureus Infection | | + +---+ | | | + +---+ + +-------+ +------+---+---+ | verapamil injection | Given | 04/11/19 | 2 mg | | | | Intravenous, PRN, Starting Wed | | 20 1:34 | | | | | 04/11/19 at 1334 | | PM PST | | | | + +-------+ +------+---+---+ +---+---+ | | | +---+---+ documented in this encounter Additional Health Concerns + + + + | Infection | Noted Time | Resolved Time | + + + + | Methicillin-resistant Staphylococcus aureus | 04/11/2019 2:01 PM | | | | PST | | + + + + documented as of this encounter
--- OUTSIDE RECORDS SUMMARY | ~2019-08-08 | XMS | Encounter Summary ---
Demographics + + + | Address | [address] | | | [place] [address] | + + + | Home Phone | | + + + | Preferred Language | Unknown | + + + | Marital Status | | + + + | Oriental Orthodox Affiliation | 1076 | + + + | Race | Unknown | + + + | Ethnic Group | Unknown | + + + Author + + + | Author | [facility] | | | and [place] | + + + | Organization | [facility] | | | and [place] | + + + | Address | Unknown | + + + | Phone | Unavailable | + + + Support + + + + + | Name | Relationship | Address | Phone | + + + + + | Jessica Shepard | ECON | [address] | | | | | [place] | | | | | [phone] | | + + + + + | Bel Solis | ECON | Unknown | | + + + + + Care Team Providers + +------+ + | Care Drafting Teacher Name | Role | Phone | + +------+ + PCP | Unavailable | + +------+ + Encounter Details +--------+ + + + + | Date | Type | Department | Care Team | Description | +--------+ + + + + | 12/08/ | Hospital | [facility] | | | | 1999 | Encounter | [facility] [address] | | | | | | [place] | | | | | | [place] [address] | | | | | | [phone] | | | +--------+ + + + [...]
--- OUTSIDE RECORDS SUMMARY | ~2019-08-08 | XMS | Encounter Summary ---
Demographics + + + | Address | [address] | | | [place] [address] | + + + | Home Phone | | + + + | Preferred Language | Unknown | + + + | Marital Status | | + + + | Roman Catholic Affiliation | 1076 | + + + | Race | Unknown | + + + | Ethnic Group | Unknown | + + + Author + + + | Author | [facility] | | | and [place] | + + + | Organization | [facility] | | | and [place] | + + + | Address | Unknown | + + + | Phone | Unavailable | + + + Support + + + + + | Name | Relationship | Address | Phone | + + + + + | Jessica Shepard | ECON | [address] | | | | | [place] | | | | | [address] | | + + + + + | Bel Solis | ECON | Unknown | | + + + + + Care Team Providers + +------+ + | Care Mortgage Clerk Name | Role | Phone | + +------+ + | Jamar Manuel MD | PCP | | + +------+ + Reason for Visit + + + | Reason | Comments | + + + | CHF Management | CHF quality measures | + + + Encounter Details +--------+ + + + + | Date | Type | Department | Care Team | Description | +--------+ + + + + | 05/18/ | Telephone | [facility] | Libra Weaver RN | CHF Management (CHF | | 2020 | | [phone] | | quality measures) | | | | [place] | | | | | | [address] | | | | | | [phone] | | | +--------+ + + + [...]
--- OUTSIDE RECORDS SUMMARY | ~2019-08-08 | XMS | Encounter Summary ---
Demographics + + + | Address | [address] | | | [place] [address] | + + + | Home Phone | | + + + | Preferred Language | Unknown | + + + | Marital Status | | + + + | Synagogue Affiliation | 1076 | + + + | Race | Unknown | + + + | Ethnic Group | Unknown | + + + Author + + + | Author | [facility] | | | and [place] | + + + | Organization | [facility] | | | and [place] | + + + | Address | Unknown | + + + | Phone | Unavailable | + + + Support + + + + + | Name | Relationship | Address | Phone | + + + + + | Jessica Shepard | ECON | [address] | | | | | [place] | | | | | [address] | | + + + + + | Bel Solis | ECON | Unknown | | + + + + + Care Team Providers + +------+ + | Care Child Nutrition Manager Name | Role | Phone | + +------+ + | Jamar Manuel MD | PCP | | + +------+ + Reason for Visit + + + | Reason | Comments | + + + | Hospital Follow-up | Osteomyelitis | + + + Encounter Details +--------+---------+ + + + | Date | Type | Department | Care Team | Description | +--------+---------+ + + + | 05/15/ | Office | [facility] | Dylan Gaston, | Chronic | | 2020 | Visit | INFECTIOUS DISEASE | Hero Malave MD | osteomyelitis of | | | | [address] | [address] | right foot (HCC) | | | | [place], [place] | [place] [address] | (Primary Dx); Acute | | | | [address] | [phone] | osteomyelitis of | | | | [phone] | | metatarsal bone, | | | | | | left (HCC); MRSA | | | | | | infection; | | | | | | Polymicrobial | | | | | | bacterial infection; | | | | | | Gangrene of left | | | | | | foot (HCC); Long | | | | | | term (current) use | | | | | | of antibiotics; | | | | | | Other osteomyelitis | | | | | | of right foot (HCC) | +--------+---------+ + + + Social History + +-------+ [...] + + + | Blood Pressure | 101/65 | 05/15/2019 3:32 PM | | | | | PST | | + + + + + | Pulse | 68 | 05/15/2019 3:32 PM | | | | | PST | | + + + + + | Temperature | - | - | | + + + + + | Respiratory Rate | 16 | 05/15/2019 3:32 PM | | | | | PST | | + + + + + | Oxygen Saturation | 97% | 05/15/2019 3:32 PM | | | | | PST | | + + + + + | Inhaled Oxygen | - | - | | | Concentration | | | | + + + + + | Weight | 97.5 kg (215 lb) | 05/15/2019 3:32 PM | | | | | PST | | + + + + + | Height | 177.8 cm (5' 10") | 05/15/2019 3:32 PM | | | | | PST | | + + + + + | Body Mass Index | 30.85 | 05/15/2019 3:32 PM | | | | | PST | [...] + + documented as of this encounter Patient Instructions Patient Instructions Hero Garcia MD - 05/15/2019 3:20 PM PSTFinishes ant ibiotics on 05/23/2019. Remove PICC on 05/24/2019. documented in this encounter Progress Notes Hero Garcia MD - 05/15/2019 3:20 PM PST [facility] Service: Infectious Diseases Outpatient Follow Up Note CHIEF COMPLAINT Follow up on osteomyelitis HISTORY OF PRESENT ILLNESS The patient is a 74 y.o.-year-old male presenting today for follow up. History obtained from chart review and the patient. Past medical history of non-healing diabetic foot ulcers, traumatic brain injury, stroke, t ype 2 DM on insulin, recently diagnosis of systolic heart failure, NSTEMI type 2, and respir atory failurewho presents as a transfer from [place] ED. Patient is somewhat of a poor historian so the majority of the history is obtained from the record and from the ED physic jacob. Patient had recently been admitted to the [facility] from 03/28/19 to 04/04/19 w here he was treated/diagnosed with systolic heart failure, type 2 TN/NSTEMI, SHAE, ARF. It ap pears that patient had been seen frequently in their ED. While admitted patient underwent CT A chest, negative for PE, as well as Echocardiogram. Echo showed decreased EF (40%) with fin dings suggestive of acute decompensated HF. Additionally patient had elevated troponin of 0. 444. Patient was started on aspirin, Betablocker and and Isosorbide as well as oral Torsemid e. When discharged it appears that the patient was well compensated and he was encouraged to follow up with cardiology as an outpatient, this was on the . Patient was discharged to [facility]. While there patient apparently became decompensated and desaturated into t he 80s so patient was brought the to ED at [facility] again (03/1618). Patient was found to have elevated troponin T (0.170), BNP was also elevated and reportedly worse than o n the previous admission. Patient required 2-3 L supplemental O2 to maintain O2 saturation > 90s. ED physician was concerned that the patient required higher level of care and cardiology ev aluation as the patient had acute changes noted on echo as well as evidence of ischemia (chong vated troponin) As there facility did not have cardiology coverage a call was made to the peoplesoft functional analyst geothermal installer here at [facility] (Dr. Jessenia Wallace), who recommended patient be admitted to the hospitalist service and further cardiac workup be preformed. As far as his infectious disease history, the patient has chronic ulcerations in the lower extremities. He was treated in the past for osteomyelitis of the right calcaneus with 6 wee ks of antibiotics. He was also recommended to consider amputation at that time. The patien t has also extensive peripheral vascular disease and arterial ultrasound showed right lower extremity significant proximal SFA stenosis as well as monophasic waveforms and no flow of b lood demonstrated distal to posterior tibial artery. Left lower extremity also significant stenosis in the mid SFA and proximal popliteal arteries as well as no flow demonstrated in t he posterior tibial artery in the left calf. Infectious Disease (ID) consult requested for further evaluation and management. The patient was diagnosed with chronic osteomyelitis of the right calcaneus, osteomyelitis of the left fifth metatarsal, severe peripheral arterial disease and gangrene of the left fo ot. The patient was seen by different specialties. His hospital course was complicated wit h non-STEMI. He was seen also by podiatry, vascular surgery. The patient was taken for rev ascularization procedure on April 11, 2019 as well as April 13, 2019. The patient had e ventually right common femoral to below-knee popliteal artery bypass with great saphenous Cr yoVein on April 18, 2019. Podiatry also recommended medical management only due to multip le comorbidities. The patient was treated with intravenous vancomycin and Zosyn for polymicrobial infection i ncluding Enterococcus faecalis, Enterobacter, MRSA. The patient is scheduled to finish therapy on May 23, 2019. He has been tolerating antibi otics very well. His kidney function has remained stable. The patient had recent mild elev ation of vancomycin levels. His dose was reduced. He continues on observation. PAST MEDICAL HISTORY Patient Active Problem List Diagnosis Sepsis Insulin dependent diabetes mellitus Peripheral vascular disease Osteomyelitis of right foot Class 1 obesity with serious comorbidity in adult Essential hypertension Acute left hemiparesis Acute osteomyelitis of calcaneum, right Hypokalemia GERD (gastroesophageal reflux disease) Ischemic stroke diagnosed during current admission Moderate protein-calorie malnutrition Received intravenous tissue plasminogen activator (tPA) in emergency department Type 2 diabetes mellitus History of stroke Chronic pain Hypomagnesemia Other osteomyelitis of right foot PAST SURGICAL HISTORY Past Surgical History: Procedure Laterality Date APPENDECTOMY BLADDER SURGERY N/A 04/10/2019 Procedure: CYSTOSCOPY; Surgeon: Aleksander Montiel MD; [place] [facility] [place] CHOLECYSTECTOMY FEMORAL-TIBIAL BYPASS GRAFT Right 04/18/2019 Procedure: BYPASS GRAFT FEMORAL-TIBIAL; Surgeon: Gianluca Robbins MD; [place] [facility] [place] HERNIA REPAIR TOE AMPUTATION Right 11/21/2017 Procedure: Amputation Right 5th Metatarsal; Surgeon: Simone Aceves DPM; Location: [facility] SOCIAL HISTORY Social History Socioeconomic History Marital status: Spouse name: Not on file Number of children: Not on file Years of education: Not on file Highest education level: Not on file Occupational History Not on file Social Needs Financial resource strain: Not on file Food insecurity: Worry: Not on file Inability: Not on file Transportation needs: Medical: Not on file Non-medical: Not on file Tobacco Use Smoking status: Former Smoker Smokeless tobacco: Never Used Substance and Sexual Activity Alcohol use: No Drug use: No Sexual activity: Not on file Lifestyle Physical activity: Days per week: Not on file Minutes per session: Not on file Stress: Not on file Relationships Social connections: Talks on phone: Not on file Gets together: Not on file Attends mandaeism service: Not on file Active member of club or organization: Not on file Attends meetings of clubs or organizations: Not on file Relationship status: Not on file Intimate partner violence: Fear of current or ex partner: Not on file Emotionally abused: Not on file Physically abused: Not on file Forced sexual activity: Not on file Other Topics Concern Not on file Social History Narrative Not on file FAM. HISTORY History reviewed. No pertinent family history. MEDICATIONS: Reviewed with the patient today. Reviewed as per facility MAR. Current Outpatient Medications: acetaminophen (TYLENOL) 325 mg tablet, Take 2 tablets by mouth every 4 hours as needed for Pain (or fever >= 38.6 C (101.5 F))., Disp: 120 tablet, Rfl: albuterol-ipratropium 2.5-0.5 mg/3 mL SOLN, Take 3 mLs by nebulization every 4 hours a s needed., Disp: 360 mL, Rfl: 0 aspirin 81 mg chewable tablet, Chew and swallow 1 tablet Daily., Disp: 30 tablet, Rfl: 1 atorvaSTATin (LIPITOR) 40 mg tablet, Take 40 mg by mouth nightly., Disp: , Rfl: cadexomer iodine (IODOSORB) 0.9 % gel, Cleanse wounds with saline, apply gel to wound base, cover with dry gauze, followed by roll gauze to secure. Prevalon boot. (Patient not t aking: Reported on 05/15/2019), Disp: 100 g, Rfl: 0 carvedilol (COREG) 6.25 mg tablet, Take 1 tablet by mouth 2 times daily (with breakfas t & dinner). (Patient not taking: Reported on 05/15/2019), Disp: 60 tablet, Rfl: 1 clopidogrel (PLAVIX) 75 mg tablet, Take 1 tablet by mouth Daily., Disp: 30 tablet, Rfl : 1 diclofenac (VOLTAREN) 1% GEL, Apply 4 g topically 4 times daily., Disp: 100 g, Rfl: 1 docusate sodium (COLACE) 100 MG capsule, Take 200 mg by mouth Daily., Disp: 30 capsule , Rfl: DULoxetine (CYMBALTA) [address] capsule, Take 30 mg by mouth 2 times daily., Disp: , Rf l: dutasteride (AVODART) 0.5 mg capsule, Take 1 capsule by mouth Daily., Disp: 30 capsule , Rfl: 1 gabapentin (NEURONTIN) 400 mg capsule, Take 800 mg by mouth 3 times daily., Disp: , Rf l: insulin glargine (LANTUS) 100 units/mL injection (vial), Inject 30 Units under the ski n 2 times daily., Disp: , Rfl: insulin lispro (HUMALOG KWIKPEN) 100 units/mL injection (pen), Inject 0-12 Units under the skin 4 times daily (with meals and nightly). Blood Glucose (BG) < 150: None BG 150-200: DAY: 2 units.NIGHT: 0 units BG 201-250: DAY: 4 u nits.NIGHT: 2 units BG 251-300: DAY: 6 units.NIGHT: 4 units BG 301-3 50: DAY: 8 units.NIGHT: 6 units BG 351-400: DAY: 10 units.NIGHT: 8 units BG > 400 : DAY: 12 units.NIGHT: 10 units, Disp: 3 mL, Rfl: 0 losartan (COZAAR) 25 mg tablet, Take 1 tablet by mouth Daily., Disp: 30 tablet, Rfl: 1 Multiple Vitamins-Minerals (MULTIVITAMIN ADULT PO), Take 1 tablet by mouth Daily., Dis p: , Rfl: omeprazole (PRILOSEC) 20 mg capsule, Take 20 mg by mouth every morning (before break)., Disp: , Rfl: ondansetron (ZOFRAN ODT) 4 mg disintegrating tablet, Take 1-2 tablets by mouth every 6 hours as needed for Nausea or Vomiting., Disp: 20 tablet, Rfl: 0 oxyCODONE (ROXICODONE) 5 mg tablet, Take 1-2 tablets by mouth every 4 hours as needed for Pain., Disp: 20 tablet, Rfl: 0 piperacillin-tazobactam (ZOSYN) IVPB (custom doses) 3.375 g, Inject 3.375 g into the v ein every 6 hours for 33 days. Indications: Infection of Bone and Bone Marrow, Disp: 1 each, Rfl: 0 potassium chloride (KLOR-CON) 10 mEq CR tablet, Take 1 tablet by mouth Daily., Disp: 3 0 tablet, Rfl: 0 sAXagliptin (ONGLYZA) 5 mg TABS tablet, Take 5 mg by mouth Daily., Disp: , Rfl: senna (SENOKOT) 8.6 mg tablet, Take 1 tablet by mouth Twice daily as needed for Const ipation., Disp: 120 tablet, Rfl: 0 tamsulosin (FLOMAX) 0.4 mg CAPS, Take 1 capsule by mouth 2 times daily., Disp: 60 caps ule, Rfl: 0 torsemide (DEMADEX) 20 mg tablet, Take 1 tablet by mouth Daily. (Patient not taking: R eported on 05/15/2019), Disp: 30 tablet, Rfl: 1 trolamine salicylate (ASPERCREME) 10% cream, Apply topically every 4 hours as needed for Pain., Disp: , Rfl: vancomycin IVPB 1.5 g, Inject 1.5 g into the vein every 24 hours for 8 days. Indicatio ns: Infection of Bone and Bone Marrow, Disp: 1 each, Rfl: 0 No Known Allergies REVIEW OF SYSTEMS 12+ systems reviewed. Negative except as per HPI. PHYSICAL EXAM Vital Signs: BP 101/65 | Pulse 68 | Resp 16 | Ht 1.778 m (5' 10") | Wt 97.5 kg (215 lb) | SpO2 97% | BMI 30.85 kg/m General Appearance: Alert, cooperative, no distress. Head: Normocephalic, without obvious abnormality, atraumatic. Lips, mucosa, and tongue normal; dentition normal; no thrush present. Eyes: PERRL, conjunctiva/corneas clear, EOM's intact. Throat: Oropharynx without exudates. Neck: Supple, symmetrical, trachea midline, no adenopathy; thyroid: no enlargement/tenderness/nodules; no carotid bruit or JVD Back: Symmetric, no curvature, ROM normal, no CVA tenderness Lungs: Clear to auscultation bilaterally, respirations unlabored Chest Wall: No tenderness or deformity Heart: Regular rate. No murmurs. Abdomen: Soft, non-tender, bowel sounds active all four quadrants, no masses, no organomegaly Extremities: Persistent chronic right heel ulceration which appears slightly smaller. How ever, surrounded by extensive callus. Left foot gangrene area is also with notable improvem ent. Pulses: 2+ and symmetric all extremities Skin: Skin color, texture, turgor normal, no rashes or lesions Lymph nodes: Cervical, supraclavicular, and axillary nodes normal Neurologic: Alert, oriented, no focal deficits. Venous access: Venous access: PICC. REVIEW OF LABS: All labs were reviewed. Results for orders placed or performed in visit on 05/14/19 Creatinine Result Value Ref Range Creatinine 1.10 0.70 - 1.18 GFR ESTIMATE (REF) 66 Documentation on 05/14/2019 Component Date Value Ref Range Status Creatinine 05/11/2019 1.10 0.70 - 1.18 Final GFR ESTIMATE (REF) 05/11/2019 66 Final CrCl cannot be calculated (Patient's most recent lab result is older than the maximum 3 day s allowed.). MICROBIOLOGY Microbiology Results (Last 14 Days by Collected Date with Culture/Sensitivity) No results found for the last 336 hours. IMAGING No new images for review today. ASSESSMENT AND RECOMMENDATIONS The patient is a 74 y.o.-year-old male with the following problems: Visit Diagnoses and Associated Orders: Reagan was seen today for hospital follow-up. Diagnoses and all orders for this visit: Chronic osteomyelitis of right foot (HCC) Acute osteomyelitis of metatarsal bone, left (HCC) MRSA infection Polymicrobial bacterial infection Gangrene of left foot (HCC) news content specialist (current) use of antibiotics - PICC removal clinic Other osteomyelitis of right foot (HCC) - vancomycin IVPB 1.5 g; Inject 1.5 g into the vein every 24 hours for 8 days. Indicati ons: Infection of Bone and Bone Marrow 1. Chronic osteomyelitis of the right calcaneus 2. Osteomyelitis of the left fifth metatarsal 3. Severe peripheral vascular disease of both lower extremities 4. Polymicrobial bacterial infection 5. Gangrene of the left foot 6. MRSA infection. 7. Long-term use of antibiotics. Monitoring toxicity with weekly labs on Tuesday and y. Remove PICC line at the end of therapy next week. After that, he will continue wound care, podiatry follow-up and return to clinic if needed. He remains at high risk for subsequent infection and amputation due to chronic wounds. Side effects of medications, duration of therapy, prognosis and importance of adherence wer e discussed with the patient today. Follow up in 2 months. Hero Richardson MD, MPH Infectious Diseases 05/15/2019 document ed in this encounter Plan of Treatment Not on filedocumented as of this encounter Visit Diagnoses + + | Diagnosis | + + | Chronic osteomyelitis of right foot (HCC) - Primary | + + | Acute osteomyelitis of metatarsal bone, left (HCC) | + + | MRSA infection Methicillin resistant Staphylococcus aureus in conditions classified | | elsewhere and of unspecified site | + + | Polymicrobial bacterial infection | + + | Gangrene of left foot (HCC) | + + | prison (current) use of antibiotics | + + | Other osteomyelitis of right foot (HCC) | + + documented in this encounter Additional Health Concerns + + + + | Infection | Noted Time | Resolved Time | + + + + | Methicillin-resistant Staphylococcus aureus | 04/11/2019 2:01 PM | | | | PST | | + + + + documented as of this encounter
--- OUTSIDE RECORDS SUMMARY | ~2019-08-08 | XMS | Encounter Summary ---
Demographics + + + | Address | [address] | | | [place] [address] | + + + | Home Phone | | + + + | Preferred Language | Unknown | + + + | Marital Status | | + + + | Buddhist Affiliation | 1076 | + + + | Race | Unknown | + + + | Ethnic Group | Unknown | + + + Author + + + | Author | [facility] | | | and [place] | + + + | Organization | [facility] | | | and [place] | + + + | Address | Unknown | + + + | Phone | Unavailable | + + + Support + + + + + | Name | Relationship | Address | Phone | + + + + + | Jessica Sheaprd | ECON | [address] | | | | | [place] | | | | | [address] | | + + + + + | Bel Solis | ECON | Unknown | | + + + + + Care Team Providers + +------+ + | Care Time Study Engineer Name | Role | Phone | + +------+ + | Jamar Manuel MD | PCP | | + +------+ + Encounter Details +--------+ + + + + | Date | Type | Department | Care Team | Description | +--------+ + + + + | 05/18/ | Documentati | [facility] | Kelsi, | | | 2020 | on | INFECTIOUS DISEASE | MD [address] | | | | | [address] | [place] | | | | | [place], [place] | [place] [address] | | | | | [address] | [phone] | | | | | [phone] | | | +--------+ + + + [...] further issues arise over the weekend, ID division chief physician will be contacted.Electr onically signed by [...]
--- OUTSIDE RECORDS SUMMARY | ~2019-08-08 | XMS | Encounter Summary ---
Demographics + + + | Address | [address] | | | [place] [address] | + + + | Home Phone | | + + + | Preferred Language | Unknown | + + + | Marital Status | | + + + | Adventism Affiliation | 1076 | + + + | Race | Unknown | + + + | Ethnic Group | Unknown | + + + Author + + + | Author | [facility] | | | and [place] | + + + | Organization | [facility] | | | and [place] | + + + | Address | Unknown | + + + | Phone | Unavailable | + + + Support + + + + + | Name | Relationship | Address | Phone | + + + + + | Jessica Shepard | ECON | [address] | | | | | [place] | | | | | [address] | | + + + + + | Bel Solis | ECON | Unknown | | + + + + + Care Team Providers + +------+ + | Care Solar Sales Advisor Name | Role | Phone | + +------+ + PCP | Unavailable | + +------+ + Encounter Details +--------+ + + + + | Date | Type | Department | Care Team | Description | +--------+ + + + + | 09/14/ | Hospital | [facility] | | | | 2001 | Encounter | MED CTR XRAY [address] | | | | | | [place] | | | | | | [place] [address] | | | | | | [phone] | | | +--------+ + + + [...]
--- OUTSIDE RECORDS SUMMARY | ~2019-08-08 | XMS | Encounter Summary ---
Demographics + + + | Address | [address] | | | [place] [address] | + + + | Home Phone | | + + + | Preferred Language | Unknown | + + + | Marital Status | | + + + | Synagogue Affiliation | 1076 | + + + | Race | Unknown | + + + | Ethnic Group | Unknown | + + + Author + + + | Author | [facility] | | | and [place] | + + + | Organization | [facility] | | | and [place] | + + + | Address | Unknown | + + + | Phone | Unavailable | + + + Support + + + + + | Name | Relationship | Address | Phone | + + + + + | Jessica Shepard | ECON | [address] | | | | | [place] | | | | | [address] | | + + + + + | Bel Solis | ECON | Unknown | | + + + + + Care Team Providers + +------+ + | Care Regulatory Associate Name | Role | Phone | + +------+ + PCP | Unavailable | + +------+ + Encounter Details +--------+ + + + + | Date | Type | Department | Care Team | Description | +--------+ + + + + | 12/27/ | Hospital | [facility] | | | | 2006 | Encounter | MED CTR XRAY [address] | | | | | | [place] | | | | | | [place] [address] | | | | | | [phone] | | | +--------+ + + + [...]
--- OUTSIDE RECORDS SUMMARY | ~2019-08-08 | XMS | Encounter Summary ---
Demographics + + + | Address | [address] | | | [place] [address] | + + + | Home Phone | | + + + | Preferred Language | Unknown | + + + | Marital Status | | + + + | Confucianist Affiliation | 1076 | + + + | Race | Unknown | + + + | Ethnic Group | Unknown | + + + Author + + + | Author | [facility] | | | and [place] | + + + | Organization | [facility] | | | and [place] | + + + | Address | Unknown | + + + | Phone | Unavailable | + + + Support + + + + + | Name | Relationship | Address | Phone | + + + + + | Jessica Shepard | ECON | [address] | | | | | [place] | | | | | [phone] | | + + + + + | Bel Solis | ECON | Unknown | | + + + + + Care Team Providers + +------+ + | Care Safety Tech Name | Role | Phone | + +------+ + | Dian Lr NP | PCP | | + +------+ + Encounter Details +--------+ + + + + | Date | Type | Department | Care Team | Description | +--------+ + + + + | 11/26/ | Hospital | [facility] | Toby Ortiz | Leonel osteomyelitis | | 2018 | Encounter | [facility] | MD [address] | of right foot (HCC) | | | | [address] | [facility] | (Primary Dx) | | | | [place] | [place] [address] | | | | | [address] | [phone] | | | | | [phone] | | | +--------+ + + + [...] + + + | Blood Pressure | 112/62 | 11/26/2017 12:46 PM | | | | | PDT | | + + + + + | Pulse | 72 | 11/26/2017 12:46 PM | | | | | PDT | | + + + + + | Temperature | 36.6 C (97.9 F) | 11/26/2017 10:59 AM | | | | | PDT | | + + + + + | Respiratory Rate | 18 | 11/26/2017 12:46 PM | | | | | PDT | | + + + + + | Oxygen Saturation | 93% | 11/26/2017 10:59 AM | | | | | PDT | | + + + + + | Inhaled Oxygen | - | - | | | Concentration | | | | + + + + + | Weight | - | - | | + + + + + | Height | - | - | | + + + + + | Body Mass Index | - | - | | + [...] + + documented as of this encounter Medications at Time of Discharge [...] +---------+ + + | acetaminophen | Take 650 mg by | | 0 | 11/26/19 | | | (TYLENOL) 325 mg | mouth. | | | 18 | 0 | | tablet | | | | | | + + + +---------+ + + | amLODIPine | Take 1 tablet by | 30 | 1 | 11/26/19 | | | (NORVASC) 5 mg | mouth Daily. | tablet | | 18 | 0 | | tablet | | | | | | + + + +---------+ + + | aspirin 325 mg | Take 325 mg by mouth | | 0 | | | | tablet | Daily. | | | | 0 | + + + +---------+ + + | docusate-senna | Take 1 tablet by | | 0 | | | | (SENOKOT-S) 50-8.6 | mouth Daily. | | | | 0 | | mg per tablet | | | | | | + + + +---------+ + + | ertapenem (INVanz) | Inject 1 g into the | 38 each | 0 | 11/26/19 | | | 1 g in sodium | vein every 24 hours | | | 18 | 8 | | chloride 0.9% 50 mL | for 38 days. | | | | | | IVPBIndications: | Indications: | | | | | | Diabetic Foot | Infection of Foot in | | | | | | Infection | Diabetic Patient | | | | | + + + +---------+ + + | | Take 1 tablet by | 25 | 0 | 11/26/19 | | | HYDROcodone-acetamin | mouth 4 times daily | tablet | | 18 | 0 | | ophen (NORCO) 10-325 | as needed for Pain. | | | | | | mg per tablet | | | | | | + + + +---------+ + + | senna (SENNA) 8.6 | Take 8.6 mg by | | 0 | 11/26/19 | | | mg tablet | mouth. | | | 18 | 0 | + + + +---------+ + + documented as of this encounter Progress Notes Maria De Jesus Contreras RN - 11/26/2017 1:38 PM PDTDischarged per wheelchair with transpo rt staff. Maria De Jesus Haines RN - 11/26/2017 12:44 PM PDTVascular access team note- Following Infusion Nurses Society standards of care; a BARD 4fr single-lumen PICC inserted x 1 stick, using Ultrasound/ modified Seldinger technique. PICC advanced to 44cm and confirm ed by cxr. Ok to use. All lumens draw bright red blood briskly and flush easily with normal saline. SBAR report to ELLIOT Ramirez @ [facility] who continues care. Dressing will Need to be changed tomorrow d/t slight oozing at insertion site- ELLIOT Ramirez aware. Thank you for th is referral. Ignacia and 2 assist back into wheelchair. Electronically signed by: Maria De Jesus Contreras RN 11/26/2017 12:44 Maria De Jesus Scott RN - 11/26/2017 10:57 AM PDTThere were no vitals filed for this visit. Reagan Shepard received into room 443, wheelchair transport/non weight bearing, accompanied by transport staff. States here for picc line placement. Reports no change in condition, pl an of care since last MD visit. Alert, oriented x 4, Unsure if medication list is accurate, cooperative. Ignacia paris and 2 assist to nilodamian for procedure. Electronically signed by: Maria De Jesus Contreras RN 11/26/2017 10:57 documented in this encounter Plan of Treatment Not on filedocumented as of this encounter Procedures + +--------+ + + + | Procedure Name | Priori | Date/Time | Associated Diagnosis | Comments | | | ty | | | | + +--------+ + + + | XR CHEST AP PORTABLE | MARELY | 11/26/2017 | Other | Results for this | | | | 12:27 PM | osteomyelitis of | procedure are in the | | | | PDT | right foot (HCC) | results section. | + +--------+ + + + documented in this encounter Results XR Chest AP Portable (11/26/2017 12:27 PM PDT) + + | Specimen | + + | | + + + + + | Narrative | Performed At | + + + | XR CHEST AP PORTABLE 11/26/2017 12:06 PM HISTORY: picc line | [facility] | | insertion. COMPARISON: 11/22/2017 Findings: Heart is enlarged. | | | Hypoexpanded lungs with bronchovascular crowding. Mild prominence of | | | pulmonary vasculature. No evidence pneumothorax or pleural effusion. | | | Bibasilar subsegmental atelectasis. No acute osseous abnormality. | | | IMPRESSION - Cardiomegaly and prominence of the pulmonary | | | vasculature. Hypoexpanded lungs with vascular crowding and | | | bibasilar subsegmental atelectasis. Right upper extremity PICC | | | tip terminates in the mid SVC. Dictated and Signed by: Carl | | | MD Jody Electronically signed: 11/26/2017 4:52 PM | | + + + + + | Procedure Note | + + | Johnson, Rad Results In - 11/26/2017 4:55 PM PDT XR CHEST AP PORTABLE 11/26/2017 12:06 PM | | | | HISTORY: picc line insertion. | | | | COMPARISON: 11/22/2017 | | | | Findings: Heart is enlarged. Hypoexpanded lungs with bronchovascular crowding. | | Mild prominence of pulmonary vasculature. No evidence pneumothorax or pleural | | effusion. Bibasilar subsegmental atelectasis. No acute osseous abnormality. | | | | IMPRESSION - | | Cardiomegaly and prominence of the pulmonary vasculature. | | | | Hypoexpanded lungs with vascular crowding and bibasilar subsegmental | | atelectasis. | | | | Right upper extremity PICC tip terminates in the mid SVC. | | | | Dictated and Signed by: Carl Vera MD | | Electronically signed: 11/26/2017 4:52 PM | + + + +---------+ + + | Performing | Address | City/State/Zipcode | Phone Number | | Organization | | | | + +---------+ + + | [facility] | | | | + +---------+ + + documented in this encounter Visit Diagnoses + + | Diagnosis | + + | Other osteomyelitis of right foot (HCC) - Primary | + + documented in this encounter"
--- OUTSIDE RECORDS SUMMARY | ~2019-08-08 | XMS | Encounter Summary ---
Demographics + + + | Address | [address] | | | [place] [address] | + + + | Home Phone | | + + + | Preferred Language | Unknown | + + + | Marital Status | | + + + | Bahai Affiliation | 1076 | + + + [...] + | Jessica Shepard | ECON | [address] | | | | | [place] | | | | | [address] | | + + + + + | Bel Solis | ECON | Unknown | | + + + + + Care Team Providers + +------+ + | Care Box Truck Owner Operator Name | Role | Phone | + +------+ + | Jamar Manuel MD | PCP | | + +------+ + Encounter Details +--------+ + + + + | Date | Type | Department | Care Team | Description | +--------+ + + + + | 04/18/ | Anesthesia | [facility] | Khadra Cheng, | | | 2019 | [facility] | [address] | | | | | [address]PER[address] | [place] [address] | | | | | [address] | [phone] | | | | | [place], [place] | | | | | | [address] | | | | | | [phone] | | | +--------+ + + + + Anesthesia Record + + + + + | Procedure Name | Responsible | Anesthesia Start | Anesthesia Stop Time | | | Anesthesiologist | Time | | + + + + + | BYPASS GRAFT | Khadra Cheng MD | 04/18/19 1233 | 04/18/19 1523 | | FEMORAL-TIBIAL | | | | | (Right Leg Upper) | | | | + + + + + +----+---+ + + | Da | T | Event | Comment | | te | i | | | | | m | | | | | e | | | +----+---+ + + | 01 | 1 | An Start | Reassessment prior to anesthesia induction/procedure. | | /2 | 2 | | | | 9/ | 3 | | | | 20 | 3 | | | | 20 | | | | +----+---+ + + | | 1 | Antibiotic | | | | 2 | Given | | | | 3 | | | | | 5 | | | +----+---+ + + | | 1 | An | | | | 2 | Induction | | | | 3 | | | | | 9 | | | +----+---+ + + | | 1 | An | | | | 2 | Intubation | | | | 4 | | | | | 3 | | | +----+---+ + + | | 1 | Quick Note | Artifact in SPO2 probe d/t TQ on arm for piv placement | | | 2 | | | | | 5 | | | | | 0 | | | +----+---+ + + | | 1 | Anesthesia | | | | 2 | Ready | | | | 5 | | | | | 5 | | | +----+---+ + + | | 1 | [place] | | | | 3 | 43-degrees | | | | 0 | | | | | 9 | | | +----+---+ + + | | 1 | First | | | | 3 | Inc/Proc St | | | | 1 | | | | | 5 | | | +----+---+ + + | | 1 | Extubation/ | | | | 5 | Airway LDA | | | | 0 | Removal | | | | 7 | | | +----+---+ + + | | 1 | an stop | | | | 5 | data | | | | 1 | | | | | 7 | | | +----+---+ + + | | 1 | An Stop | Patient handed off to recovery nurse. | | | 2 | | | | | 3 | | | +----+---+ + + +------+ | Meds | +------+ + + + | Name | Total | + + + | lidocaine 2% | 100 mg | + + + | rocuronium | 40 mg | + + + | dexamethasone | 8 mg | + + + | ePHEDrine | 10 mg | + + + | neostigmine | 1 mg | + + + | glycopyrrolate | 0.2 mg | + + + | piperacillin-tazobactam (ZOSYN) | 3.375 g | | 3.375 g in sodium chloride 0.9% | | | 100 mL IVPB | | + + + | fentaNYL (PF) injection 25-100 | 200 mcg | | mcg | | + + + | etomidate | 20 mg | + + + | phenylephrine | 5,610 mcg | + + + | electrolyte-A (PLASMALYTE-A) | 600 mL | | infusion | | + + + | heparin | 10,000 Units | + + + | protamine | 30 mg | + + + | ondansetron (ZOFRAN) injection 4 | 4 mg | | mg | | + + + | vancomycin in saline IVPB 1.75 g | 1.75 g | + + + | NS (Infusion) | 1,000 mL | + + + + + | Name | + + | N2O Flow Rate (L/Min) | + + | O2 Flow Rate (L/Min) | + + | Insp O2 | + + | Exp N2O | + + | Exp SEV | + + | Air Flow Rate (L/Min) | + + + + | No blood administrations on file. | + + +--------+ + + + | Type | Details | Placement | Removal | +--------+ + + + | Wound | 11/19/17; 1720; Diabetic ulc; | 11/19/17 1720 by Janny | | | | Left; lateral; foot; ulceration, | F ELLIOT Jarvis | | | | arterial; 1 cm x 3 cm | | | +--------+ + + + | Wound | 11/19/17; 1720; Pressure inj; | 11/19/17 1720 by Janny | | | | Right; heel; Ulcer 4x5 mm | Janice Jarvis RN | | +--------+ + + + | Urethr | 04/18/19; 1251; indicated due to | 04/18/19 1251 by | | | al | specific surgical procedure; | Maria De Jesus Solis RN | | | Zaid | latex; 16; None; 1; 10; 10; none; | | | | er | drainage bag to dependent | | | | | drainage | | | +--------+ + + + | Wound | 04/18/19; 1501; Incision; Right; | 04/18/19 1501 by | | | | jhin | Maria De Jesus Solis RN | | +--------+ + + + | Wound | 04/18/19; 1506; Incision; Right; | 04/18/19 1506 by | | | | leg; José Miguel | Maria De Jesus Solis RN | | +--------+ + + + | Periph | 04/12/19; Right; Anterior | 04/12/19 0000 by | 04/21/19 1436 by | | eral | (palmar), Proximal; Forearm; 20 | Saqib Cadet RN | Vladimir Chapin RN | | IV | gauge, 2 in length; 04/21/19; | | | | | 1436 | | | +--------+ + + + | PICC | 04/14/19; 1543; Purple Hub; Red | 04/14/19 1543 by | 04/19/19 1030 by | | Double | Hub; Yes; Yes; All; Patient room; | Kady Houser RN | Sheila Cabrera, | | Lumen | Purchase Order Checker; Kameron; Registered | | RN | | | nurse; Yes; New indication for | | | | | central line (e.g., hemodynamic | | | | | monitoring, fluid/medication | | | | | administration, etc.); basilic | | | | | vein (medial side of arm), right; | | | | | pressure injectable catheter, | | | | | lot number (specify) ([id number]); | | | | | 4 Fr, length (specify) (47cm | | | | | total [id number] out); | | | | | distraction, intradermal | | | | | injection, tolerated well; ECG | | | | | verification, ultrasound | | | | | visualization with modified | | | | | seldinger technique at bedside; | | | | | ecg verification; removed | | | | | inadvertently; 04/19/19; 1030 | | | +--------+ + + + | Airway | Placement Date: 04/18/19; | 04/18/19 1243 by | 04/18/19 1507 by | | | Placement Time: 1243 (created via | Khadra Cheng MD | Khadra Cheng MD | | | procedure documentation); Mask | | | | | Ventilation: EZ w/OA; Airway | | | | | Grade: 1; Successful Technique: | | | | | Mac; Laryngoscope Blade Size: 3; | | | | | Attempts: 1; Airway Type: | | | | | endotracheal; Size: 7.5; Airway | | | | | Tube Secured At: 24; Trauma: | | | | | none; Other Equipment: stylette; | | | | | Placement Check: exhaled CO2 | | | | | detection device, bilateral chest | | | | | rise, breath sounds equal | | | | | bilaterally; Removal Date: | | | | | 04/18/19; Removal Time: 1507 | | | +--------+ + + + | Periph | 04/18/19; 1251 (created via | 04/18/19 1251 by | 04/21/19 1436 by | | eral | procedure documentation); Right; | Khadra Cheng MD | Vladimir Chapin RN | | IV | Lateral; Forearm; 04/21/19; 1436 | | | +--------+ + + + | Arteri | 04/18/19; 1255 (created via | 04/18/19 1255 by | 04/19/19 1100 by | | al | procedure documentation); | Khadra Cheng MD | Sheila Cabrera, | | Line | Chlorhexidine/Isopropyl Alcohol; | | RN | | | under GA; Left; radial artery; 20 | | | | | gauge; continuous blood pressure | | | | | monitoring, frequent blood gas | | | | | measurement; landmarks; arm | | | | | board, other (see comments); no | | | | | longer indicated; R&B arterial | | | | | line discussed with patient prior | | | | | to sedation in preoperative | | | | | holding area. After induction of | | | | | anesthetic, sterile prep of left | | | | | radial area performed. 20g | | | | | catheter inserted by Dr. Robbins | | | | | during induction using pulse with | | | | | good flow of blood and good | | | | | transduced waveform on monitor. | | | | | Catheter secured using mastisol, | | | | | tegaderm, tape and arm board. No | | | | | apparent complications at time of | | | | | insertion.; 04/19/19; 1100 | | | | | (removed per Umberto Seaman PA-C) | | | +--------+ + + + | Drain/ | 04/18/19; 1452; #2; Right; lower; | 04/18/19 1452 by | 04/21/19 1437 by | | Device | leg; collapsible closed device; | Maria De Jesus Solis RN | Vladimir Chapin RN | | Site | 7 mm flat ; 04/21/19; 1437 | | | +--------+ + + + | Drain/ | 04/18/19; 1457; #1; Right; upper; | 04/18/19 1457 by | 04/21/19 1436 by | | Device | groin; collapsible closed | Maria De Jesus Solis RN | Vladimir Chapin RN | | Site | device; 7 mm flat ; 04/21/19; | | | | | 1436 | | | +--------+ + + + documented in this encounter Social History + +-------+ +--------+------+ | Tobacco [...] | + +--------+ + + + | ANE AIRWAY NOTE | Routin | 04/18/2019 | | Results for this | | | e | 1:22 PM | | procedure are in the | | | | PST | | results section. | + +--------+ + + + | ANE PERIPHERAL IV | Routin | 04/18/2019 | | Results for this | | LINE NOTE | e | 1:21 PM | | procedure are in the | | | | PST | | results section. | + +--------+ + + + | ANE ARTERIAL LINE | Routin | 04/18/2019 | | Results for this | | NOTE | e | 1:20 PM | | procedure are in the | | | | PST | | results section. | + +--------+ + + + documented in this encounter Results Airway (04/18/2019 1:22 PM PST) + + + | Narrative | Performed At | + + + | Khadra Cheng MD 04/18/2019 1:22 PM Anesthesia Airway | | | Placement 04/18/2019 12:43 PM Preprocedure check: patient | | | identified, suction, airway equipment checked, patient reassessment | | | prior to induction, airway assessed and oxygen Rapid Sequence | | | Induction: no Mask ventilation: easy with oral airway Successful | | | technique: Mac Laryngoscope blade size: 3 Airway grade: 1 (Full | | | view of glottis) Other equipment: stylette Attempts: 1 Airway type: | | | endotracheal Size: 7.5 Cuffed: cuffed Route, reference point: | | | right side of mouth Tube depth: 24 cm Tube secured with: adhesive | | | tape Trauma: none Tube placement verification: bilateral chest rise, | | | equal bilateral breath sounds and carbon dioxide detection | | | Performing provider: Khadra Cheng MD Authorizing provider: Khadra | | | Maine Cheng MD Please see intraoperative grid for any | | | additional medication documentation. | | + + + PIV (04/18/2019 1:21 PM PST) + + + | Narrative | Performed At | + + + | Khadra Cheng MD 04/18/2019 1:22 PM Intravenous Line | | | Placement 04/18/2019 12:51 PM Indication: routine Preparation: | | | chlorhexidine/isopropyl alcohol patient was: under GA Side: right | | | Orientation: lateral Vein location: forearm Localization technique: | | | landmark Securement: transparent dressing and tape Placed by: | | | Khadra Cheng MD Authorizing provider: Khadra Cheng MD | | | Please see intraoperative grid for any additional medication | | | documentation. | | + + + Flavio (04/18/2019 1:20 PM PST) + + + | Narrative | Performed At | + + + | Khadra Cheng MD 04/18/2019 1:21 PM Arterial Line | | | Placement 04/18/2019 12:55 PM Indication: acid-base/laboratory | | | analysis and continuous blood pressure monitoring Prep solution: | | | chlorhexidine/isoproplyl alcohol Patient was: under GA Laterality: | | | left Artery:radial Size: 20 g Localization technique: landmark | | | Securement: transparent dressing, tape and arm board Performed by: | | | Khadra Cheng MD Authorizing provider: Khadra Cheng MD | | | Comments: R&B arterial line discussed with patient prior to sedation | | | in preoperative holding area. After induction of anesthetic, | | | sterile prep of left radial area performed. 20g catheter inserted by | | | Dr. Robbins during induction using pulse with good flow of blood and | | | good transduced waveform on monitor. Catheter secured using | | | mastisol, tegaderm, tape and arm board. No apparent complications at | | | time of insertion. Please see intraoperative grid for any | | | additional medication documentation. | | + + + documented in this encounter Visit Diagnoses Not on filedocumented in this encounter Administered Medications + +--------+ +------+------+------+ | Medication Order | MAR | Action | Dose | Rate | Site | | | Action | Date | | | | + +--------+ +------+------+------+ | dexamethasone (DECADRON) 4 | Given | 04/18/19 | 8 mg | | | | mg/mL injection Intravenous, | | 20 1:08 | | | | | PRN, Starting Tue04/18/19 at | | PM PST | | | | | 1308, Anesthesia Intra-op | | | | | | + +--------+ +------+------+------+ +---+---+ | | | +---+---+ + + [...] | | +---+---+ + +-------+ +-------+---+---+ | ePHEDrine in saline 5 mg/mL IV | Given | 04/18/19 | 10 mg | | | | syringe Intravenous, PRN, | | 20 1:45 | | | | | Starting 04/18/19 at 1345, | | PM PST | | | | | Anesthesia Intra-op | | | | | | + +-------+ +-------+---+---+ +---+---+ | | | +---+---+ + +-------+ +-------+---+---+ | etomidate (AMIDATE) injection | Given | 04/18/19 | 20 mg | | | | Intravenous, PRN, Starting Wed | | 20 12:39 | | | | | 04/18/19 at 1239, Anesthesia | | PM PST | | | | | Intra-op | | | | | | + [...] | | +---+---+ + +-------+ +--------+---+---+ | glycopyrrolate (MARISSA) | Given | 04/18/19 | 0.2 mg | | | | injection Intravenous, PRN, | | 20 2:44 | | | | | Starting 04/18/19 at 1444, | | PM PST | | | | | Anesthesia Intra-op | | | | | | + +-------+ +--------+---+---+ +---+---+ | | | +---+---+ + +-------+ +---------+---+---+ | heparin 1,000 units/mL | Given | 04/18/19 | 10,000 | | | | injection Intravenous, PRN, | | 20 1:57 | Units | | | | Starting 04/18/19 at 1357, | | PM PST | | | | | Anesthesia Intra-op | | | | | | + +-------+ +---------+---+---+ +---+---+ | | | +---+---+ + +-------+ +--------+---+---+ | lidocaine (PF) 2% injection | Given | 04/18/19 | 100 mg | | | | Intravenous, PRN, Starting Wed | | 20 12:39 | | | | | 04/18/19 at 1239, Anesthesia | | PM PST | | | | | Intra-op | | | | | | + +-------+ +--------+---+---+ +---+---+ | | | +---+---+ + +-------+ +------+---+---+ | neostigmine (BLOXIVERZ) 1 mg/mL | Given | 04/18/19 | 1 mg | | | | injection Intravenous, PRN, | | 20 2:44 | | | | | Starting 04/18/19 at 1444, | | PM PST | | | | | Anesthesia Intra-op | | | | | | + +-------+ +------+---+---+ +---+---+ | | | +---+---+ + +-------+ +------+---+---+ | ondansetron (ZOFRAN) injection | Given | 04/18/19 | 4 mg | | | | 4 mg 4 mg, Intravenous, EVERY 6 | | 20 2:43 | | | | | HOURS PRN, Nausea, Vomiting, | | PM PST | | | | | Starting Tue04/13/19 at 1636, | | | | | [...] +------+---+---+ +---+---+ | | | +---+---+ + + + +---------+-------+---+ | phenylephrine (AFSANEH-SYNEPHRINE, | Rate/Dos | 04/18/19 | 30 | 0.2 | | | VAZCULEP) 10 mg/mL injection | e Change | 20 3:01 | mcg/min | mL/hr | | | Intravenous, CONTINUOUS PRN, | | PM PST | | | | | Starting 04/18/19 at 1239, | | | | | | | Anesthesia Intra-op | | | | | | + + + +---------+-------+---+ + + +---------+-------+---+ | Rate/Dose Change | 04/18/19 | 50 | 0.3 | | | | 20 1:58 | mcg/min | mL/hr | | | | PM PST | | | | + + +---------+-------+---+ | New Bag | 04/18/19 | 30 | 0.2 | | | | 20 12:39 | mcg/min | mL/hr | | | | PM PST | | | | + + +---------+-------+---+ +---+---+ | | | +---+---+ + +---------+ +---------+---+---+ | piperacillin-tazobactam (ZOSYN) | New Bag | 04/18/19 | 3.375 g | | | | 3.375 g in sodium chloride 0.9% | | 20 12:34 | | | | | 100 mL IVPB 3.375 g, | | PM PST | | | | | Intravenous, Administer over 30 | | | | | | | Minutes, ONCE, 04/18/19 at | | | | | | | 1200, For 1 dose, Activate system | | | | | | | and mix before use., | | | | | | | Indications: Diabetic Foot | | | | | | | Infection | | | | | | + +---------+ +---------+---+---+ +---+---+ | | | +---+---+ + +-------+ +-------+---+---+ | protamine injection | Given | 04/18/19 | 30 mg | | | | Intravenous, PRN, Starting Wed | | 20 2:39 | | | | | 04/18/19 at 1439, Anesthesia | | PM PST | | | | | Intra-op | | | | | | + +-------+ +-------+---+---+ +---+---+ | | | +---+---+ + +-------+ +-------+---+---+ | rocuronium (ZEMURON) injection | Given | 04/18/19 | 40 mg | | | | Intravenous, PRN, Starting Wed | | 20 12:40 | | | | | 04/18/19 at 1240, Anesthesia | | PM PST | | | | | Intra-op | | | | | | + +-------+ +-------+---+---+ +---+---+ | | | +---+---+ + +---------+ +---+---+---+ | sodium chloride 0.9% (NS) | New Bag | 04/18/19 | | | | | infusion Intravenous, CONTINUOUS | | 20 12:58 | | | | | PRN, Starting 04/18/19 at | | PM PST | | | | | 1258, Anesthesia Intra-op | | | | | | + +---------+ +---+---+---+ +---+---+ | | | +---+---+ + +---------+ [...] | | | | | | on Tue04/17/19 at 1400, Vanomycin | | | | [...] + +--------+-------+---+ +---+---+ | | | +---+---+ documented in this encounter Additional Health Concerns + + + + | Infection | Noted Time | Resolved Time | + + + + | Methicillin-resistant Staphylococcus aureus | 04/11/2019 2:01 PM | | | | PST | | + + + + documented as of this encounter"
--- OUTSIDE RECORDS SUMMARY | ~2019-08-08 | XMS | Encounter Summary ---
Demographics + + + | Address | [address] | | | [place] [address] | + + + | Home Phone | | + + + | Preferred Language | Unknown | + + + | Marital Status | | + + + | Amish Affiliation | 1076 | + + + | Race | Unknown | + + + | Ethnic Group | Unknown | + + + Author + + + | Author | [facility] | | | and [place] | + + + | Organization | [facility] | | | and [place] | + + + | Address | Unknown | + + + | Phone | Unavailable | + + + Support + + + + + | Name | Relationship | Address | Phone | + + + + + | Jessica Shepard | ECON | [address] | | | | | [place] | | | | | [address] | | + + + + + | Bel Solis | ECON | Unknown | | + + + + + Care Team Providers + +------+ + | Care Psychiatric Tech Name | Role | Phone | + +------+ + | Jamar Manuel MD | PCP | | + +------+ + Reason for Visit +--------+ + | Reason | Comments | +--------+ + | Other | care coordination | +--------+ + Encounter Details +--------+ + + + + | Date | Type | Department | Care Team | Description | +--------+ + + + + | 05/02/ | Telephone | [facility] | Ely Mcguire | Other (care | | 2020 | | INFECTIOUS DISEASE | Parminder RN | coordination) | | | | [address] | | | | | | [place], [place] | | | | | | [address] | | | | | | [phone] | | | +--------+ + + + [...]
--- OUTSIDE RECORDS SUMMARY | ~2019-08-08 | XMS | Encounter Summary ---
Demographics + + + | Address | [address] | | | [place] [address] | + + + | Home Phone | | + + + | Preferred Language | Unknown | + + + | Marital Status | | + + + | Adventism Affiliation | 1076 | + + + | Race | Unknown | + + + | Ethnic Group | Unknown | + + + Author + + + | Author | [facility] | | | and [place] | + + + | Organization | [facility] | | | and [place] | + + + | Address | Unknown | + + + | Phone | Unavailable | + + + Support + + + + + | Name | Relationship | Address | Phone | + + + + + | Jessica Shepard | ECON | [address] | | | | | [place] | | | | | [address] | | + + + + + | Bel Solis | ECON | Unknown | | + + + + + Care Team Providers + +------+ + | Care Elevator Supervisor Name | Role | Phone | + +------+ + | Dian Lr NP | PCP | | + +------+ + Encounter Details +--------+ + + + + | Date | Type | Department | Care Team | Description | +--------+ + + + + | 07/21/ | Orders Only | [facility] | Conversion | | | 2019 | | INFECTIOUS DISEASE | Transaction, | | | | | [address] | Provider Unknown | | | | | [place], [place] | | | | | | [address] | (Fax) | | | | | [phone] | | | +--------+ + + + [...] | EXTERNAL LAB: CBC | Routin | 07/21/2018 | | Results for this | | | e | 12:00 AM | | procedure are in the | | | | PDT | | results section. | + +--------+ + + + | SEDIMENTATION RATE, | Routin | 07/21/2018 | | Results for this | | AUTOMATED | e | 12:00 AM | | procedure are in the | | | | PDT | | results section. | + +--------+ + + + | C-REACTIVE PROTEIN | Routin | 07/21/2018 | | Results for this | | | e | 12:00 AM | | procedure are in the | | | | PDT | | results section. | + +--------+ + + + | COMPREHENSIVE | Routin | 07/21/2018 | | Results for this | | METABOLIC PANEL | e | 12:00 AM | | procedure are in the | | | | PDT | | results section. | + +--------+ + + + documented in this encounter Results Sedimentation rate, automated (07/21/2018 12:00 AM PDT) + +-------+ + + + | Component | Value | Ref Range | Performed | Pathologist | | | | | At | Signature | + +-------+ + + + | Sed Rate | 15 | 0 - 15 | EXTERNAL | | | | | | LAB | | + +-------+ + + + + + | Specimen | + + | Blood specimen | | (specimen) | + + + +---------+ + + | Performing | Address | City/State/Zipcode | Phone Number | | Organization | | | | + +---------+ + + | EXTERNAL LAB | | | | + +---------+ + + External Lab: CBC (07/21/2018 12:00 AM PDT) + + + + + + | Component | Value | Ref Range | Performed | Pathologist | | | | | At | Signature | + + + + + + | WBC | 14.3 (A) | 4.5 - 11.0 10 | EXTERNAL | | | | | | LAB | | + + + + + + | Red Blood | 4.68 | 10 | EXTERNAL | | | Cells | | | LAB | | | Counted | | | | | + + + + + + | Hemoglobin | 9.4 (A) | 13.5 - 18.0 | EXTERNAL | | | | | g/dL | LAB | | + + + + + + | Hematocrit, | 29.9 (A) | 41 - 50 % | EXTERNAL | | | POC | | | LAB | | + + + + + + | MCV | 64.0 (A) | 81 - 99 fL | EXTERNAL | | | | | | LAB | | + + + + + + | MCH | 20 (A) | 27 - 33 pg | EXTERNAL | | | | | | LAB | | + + + + + + | MCHC | 31 | g/dL | EXTERNAL | | | | | | LAB | | + + + + + + | Platelet | 283 | K/ L | EXTERNAL | | | Count | | | LAB | | | Plasma | | | | | + + + + + + | RDW-CV | 22.4 (A) | 10.5 - 15.0 % | EXTERNAL | | | | | | LAB | | + + + + + + | MPV | | fL | EXTERNAL | | | | | | LAB | | + + + + + + | Differentia | | | EXTERNAL | | | l Type | | | LAB | | + + + + + + | % Segmented | 74.9 | % | EXTERNAL | | | | | | LAB | | | Neutrophils | | | | | + + + + + + | % | 12.3 (A) | 24 - 44 % | EXTERNAL | | | Lymphocytes | | | LAB | | + + + + + + | % Monocytes | 5.8 | % | EXTERNAL | | | | | | LAB | | + + + + + + | % | 6.2 (A) | 0 - 6 % | EXTERNAL | | | Eosinophils | | | LAB | | + + + + + + | % Basophils | 0.8 | % | EXTERNAL | | | | | | LAB | | + + + + + + | Absolute | | / L | EXTERNAL | | | Segmented | | | LAB | | | Neutrophils | | | | | + + + + + + | Absolute | | / L | EXTERNAL | | | Lymphocytes | | | LAB | | + + + + + + | Absolute | | / L | EXTERNAL | | | Monocytes | | | LAB | | + + + + + + | Absolute | | / L | EXTERNAL | | | Eosinophils | | | LAB | | + + + + + + | Absolute | | / L | EXTERNAL | | | Basophils | | | LAB | | + + + + + + + + | Specimen | + + | Blood specimen | | (specimen) | + + + +---------+ + + | Performing | Address | City/State/Zipcode | Phone Number | | Organization | | | | + +---------+ + + | EXTERNAL LAB | | | | + +---------+ + + C-Reactive Protein (07/21/2018 12:00 AM PDT) + + + + + + | Component | Value | Ref Range | Performed | Pathologist | | | | | At | Signature | + + + + + + | CRP | 12.6 (A) | 0 - 5 mg/dL | EXTERNAL | | | | | | LAB | | + + + + + + + + | Specimen | + + | Blood specimen | | (specimen) | + + + +---------+ + + | Performing | Address | City/State/Zipcode | Phone Number | | Organization | | | | + +---------+ + + | EXTERNAL LAB | | | | + +---------+ + + Comprehensive Metabolic Panel (07/21/2018 12:00 AM PDT) + +---------+ + + + | Component | Value | Ref Range | Performed | Pathologist | | | | | At | Signature | + +---------+ + + + | Glucose, | 136 (A) | 70 - 100 mg/dL | EXTERNAL | | | Fasting | | | LAB | | + +---------+ + + + | BUN | 16 | mg/dL | EXTERNAL | | | | | | LAB | | + +---------+ + + + | Creatinine | 0.71 | mg/dL | EXTERNAL | | | | | | LAB | | + +---------+ + + + | BUN/Creatin | 22.5 | | EXTERNAL | | | ine Ratio | | | LAB | | + +---------+ + + + | Calcium | 8.5 | mg/dL | EXTERNAL | | | | | | LAB | | + +---------+ + + + | Protein, | 6.8 | g/dL | EXTERNAL | | | Total | | | LAB | | + +---------+ + + + | Albumin | 3.5 | | EXTERNAL | | | | | | LAB | | + +---------+ + + + | Globulin | 3.3 | | EXTERNAL | | | | | | LAB | | + +---------+ + + + | A/G Ratio | 1.1 | | EXTERNAL | | | | | | LAB | | + +---------+ + + + | Bilirubin | 0.5 | mg/dL | EXTERNAL | | | Total | | | LAB | | + +---------+ + + + | ALP, | 72 | | EXTERNAL | | | External | | | LAB | | + +---------+ + + + | ALT | 15 | U/L | EXTERNAL | | | | | | LAB | | + +---------+ + + + | AST | 20 | U/L | EXTERNAL | | | | | | LAB | | + +---------+ + + + | Na | 134 | mmol/L | EXTERNAL | | | | | | LAB | | + +---------+ + + + | K | 5.8 (A) | 3.6 - 5.1 | EXTERNAL | | | | | mmol/L | LAB | | + +---------+ + + + | Cl | 99 | mmol/L | EXTERNAL | | | | | | LAB | | + +---------+ + + + | CO2 | 29 | mmol/L | EXTERNAL | | | | | | LAB | | + +---------+ + + + | Anion Gap | 11.8 | mmol/L | EXTERNAL | | | | | | LAB | | + +---------+ + + + | Estimated | 109 | mg/dL | EXTERNAL | | | GFR | | | LAB | | + +---------+ + + + + + | Specimen [...]
--- OUTSIDE RECORDS SUMMARY | ~2019-08-08 | XMS | Encounter Summary ---
Demographics + + + | Address | [address] | | | [place] [address] | + + + | Home Phone [...] + + | Author | [facility] | | | and [place] | + + + | Organization | [facility] | | | and [place] | + + + | Address | Unknown | + + + | Phone | Unavailable | + + + Support + + + + + | Name | Relationship | Address | Phone | + + + + + | Jessica Shepard | ECON | [address] | | | | | [place] | | | | | [address] | | + + + + + | Bel Solis | ECON | Unknown | | + + + + + Care Team Providers + +------+ + | Care Other Wood Processing Machine Operator Name | Role | Phone | [...] + + | 06/24/ | Telephone | [facility] | Mika Tim DNP | Consult | | 2019 | | VASCULAR SURGERY | [address] | | | | | [address] | [place], [place] | | | | | [place], [place] | [address] | | | | | [address] | | | | | | [phone] | | | +--------+ + + + [...]
--- OUTSIDE RECORDS SUMMARY | ~2019-08-08 | XMS | Clinical Summary ---
Demographics + + + | Address | [address] | | | [place] [address] | + + + | Home Phone | | + + + | Preferred Language | Unknown | + + + | Marital Status | | + + + | Jew Affiliation | [id number] | + + + | Race | Unknown | + + + | Ethnic Group | Unknown | + + + Author + + + | Author | [facility] | | | and [place] | + + + | Organization | [facility] | | | and [place] | + + + | Address | Unknown | + + + | Phone | Unavailable | + + + Support + + + + + | Name | Relationship | Address | Phone | + + + + + | Jessica Shepard | ECON | [address] | | | | | [place] | | | | | [address] | | + + + + + | Bel Solis | ECON | Unknown | | + + + + + Care Team Providers + +------+ + | Care Slat Basket Maker Machine Name | Role | Phone | + [...] | | + + + +---------+------+------+-------+ | sAXagliptin [...] | + + + +---------+------+------+-------+ | aspirin 81 mg | Chew and swallow 1 | 30 | 1 | 02/0 | | Activ | | chewable tablet | tablet Daily. | tablet | | 2/20 | | e | | | | | | 20 | | | + + + +---------+------+------+-------+ | carvedilol (COREG) | Take 1 tablet by | 60 | 1 | 02/0 | | Activ | | 6.25 mg tablet | mouth 2 times daily | tablet | | 1/20 | | e | | | (with breakfast & | | | 20 | | | | | dinner). | | | | | | + + + +---------+------+------+-------+ | clopidogrel | Take 1 tablet by | 30 | 1 | 02/0 | | Activ | | (PLAVIX) 75 mg | mouth Daily. | tablet | | 2/20 | | e | | tablet | | | | 20 | | | + + + +---------+------+------+-------+ | losartan (COZAAR) | Take 1 tablet by | 30 | 1 | 02/0 | | Activ | | 25 mg tablet | mouth Daily. | tablet | | 2/20 | | e | | | | | | 20 | | | + + + +---------+------+------+-------+ | ondansetron | Take 1-2 tablets by | 20 | 0 | 02/0 | | Activ | | (ZOFRAN ODT) 4 mg | mouth every 6 hours | tablet | | 1/20 | | e | | disintegrating | as needed for Nausea | | | 20 | | | | tablet | or Vomiting. | | | | | | + + + +---------+------+------+-------+ | tamsulosin | Take 1 capsule by | 60 | 0 | 02/0 | | Activ | | (FLOMAX) 0.4 mg CAPS | mouth 2 times daily. | capsule | | 1/20 | | e | | | | | | 20 | | | + + + +---------+------+------+-------+ | torsemide | Take 1 tablet by | 30 | 1 | 02/0 | | Activ | | (DEMADEX) 20 mg | mouth Daily. | tablet | | 2/20 | | e | | tablet | | | | 20 | | | + + + +---------+------+------+-------+ | potassium chloride | Take 1 tablet by | 30 | 0 | 02/0 | | Activ | | (KLOR-CON) 10 mEq | mouth Daily. | tablet | | 1/20 | | e | | CR tablet | | | | 20 | | | + + + +---------+------+------+-------+ | cadexomer iodine | Cleanse wounds with | 100 g | 0 | 02/0 | | Activ | | (IODOSORB) 0.9 % gel | saline, apply gel to | | | 20 | | e | | | wound base, cover | | | 20 | | | | | with dry gauze, | | | | | | | | followed by roll | | | | | | | | gauze to secure. | | | | | | | | Prevalon boot. | | | | | | + + + +---------+------+------+-------+ +---+ + | | Additional | | | InformationPatient | | | not taking. Reported | | | on 05/15/2019 3:27 | | | PM | +---+ + + + +---------+---+------+---+-------+ | diclofenac | Apply 4 g topically | 100 g | 1 | 02/0 | | Activ | | (VOLTAREN) 1% GEL | 4 times daily. | | | /20 | | e | | | | | | 20 | | | + + +---------+---+------+---+-------+ | dutasteride | Take 1 capsule by | 30 | 1 | 02/0 | | Activ | | (AVODART) 0.5 mg | mouth Daily. | capsule | | 1/20 | | e | | capsule | | | | 20 | | | + + +---------+---+------+---+-------+ | oxyCODONE | Take 1-2 tablets by | 20 | 0 | 02/0 | | Activ | | (ROXICODONE) 5 mg | mouth every 4 hours | tablet | | 1/20 | | e | | tablet | as needed for Pain. | | | 20 | | | + + +---------+---+------+---+-------+ | Multiple | Take 1 tablet by | | 0 | | | Activ | | Vitamins-Minerals | mouth Daily. | | | | | e | | (MULTIVITAMIN ADULT | | | | | | | | PO) | | | | | | | + + +---------+---+------+---+-------+ | fluconazole | Take 150 mg by mouth | | 0 | | | Activ | | (DIFLUCAN) 150 mg | once. | | | | | e | | tablet | | | | | | | + + +---------+---+------+---+-------+ Active Problems + + + | Problem | Noted Date | + + + | Hypomagnesemia | 04/07/2019 | + + + | History of stroke | 04/06/2019 | + + + | Chronic pain | 04/06/2019 | + + + | Other osteomyelitis of right foot | 04/05/2019 | + + + + + | Overview: Added automatically from request for surgery | | [id number] | + + + + + | Acute osteomyelitis of calcaneum, right | 07/14/2018 | + + + | Essential hypertension | 11/25/2017 | + + + | Insulin dependent diabetes mellitus | 11/22/2017 | + + + + + | Overview: Problem List Developmental Psychologist Utility | + + + + + | Peripheral vascular disease [...] + + + | Overview: Problem List Developmental Psychologist Utility | + + + + + | Type 2 diabetes mellitus | 05/14/2016 | + + + Resolved Problems + + + + | Problem | Noted | Resolved | | | Date | Date | + + + + | Gross hematuria | 04/08/19 | | | | 20 | 0 | + + + + | NSTEMI (non-ST elevated myocardial infarction) | 04/06/19 | | | | 20 | 0 | + + + + | Acute decompensated heart failure | 04/06/19 | | | | 20 | 0 | + + + + | Acute respiratory failure | 04/06/19 | | | | 20 | 0 | + + + + | Bacteremia | 04/06/19 | | | | 20 | 0 | + + + + Encounters +--------+ + + + + | Date | Type | Specialty | Care Team | Description | +--------+ + + + + | 07/22/ | Telephone | Infectious Diseases | Dylan Gaston, | Other (He is | | 2020 | | | Hero Malave MD | refusing to come to | | | | | | appointment. He will | | | | | | call us back when | | | | | | he is ready.) | +--------+ + + + + | 06/25/ | Telephone | Vascular Surgery | Karyn Guerra, | Follow-up | | 2019 | | | RN | | +--------+ + + + + | 06/24/ | Telephone | Vascular Surgery | Mika Tim DNP | Consult | 2019 | | | | | +--------+ + + + + | 05/23/ | Telephone | Infectious Diseases | Nimo Westbrook, | Care Coordination | | 2019 | | | Curriculum Supervisor | (EOT??); Other (picc | | | | | | d/c) | +--------+ + + + + | 05/22/ | Documentati | Infectious Diseases | Nimo Westbrook, | Other (*Labs from | 2019 | on | | Curriculum Supervisor | [facility] | | | | | | 05/21/2019 | | | | | | (CBC,CMP,ESR,CRP,VAN | | | | | | CO TROUGH)) | +--------+ + + + + | 05/21/ | Office | Vascular Surgery | Mika Tim DNP | Peripheral vascular | 2019 | Visit | | | disease (HCC) | | | | | | (Primary Dx); S/P | | | | | | arterial stent; S/P | | | | | | femoral-popliteal | | | | | | bypass surgery; | | | | | | Class 1 obesity with | | | | | | serious comorbidity | | | | | | and body mass index | | | | | | (BMI) of 30.0 to | | | | | | 30.9 in adult, | | | | | | unspecified obesity | | | | | | type | +--------+ + + + + | 05/18/ | Documentati | Infectious Diseases | Kelsi, | | | 2019 | on | | MD Damaris | | +--------+ + + + + | 05/18/ | Telephone | Hospitalist | Libra Weaver RN | CHF Management (CHF | | 2019 | | | | quality measures) | +--------+ + + + + | 05/16/ | Documentati | Infectious Diseases | Dylan Gaston, | Results (LABS (CMP, | | 2019 | on | | Hero Malave MD | VANCO TROUGH, CRP, | | | | | | CBC, ESR | | | | | | 05/14/2019)) | +--------+ + + + + | 05/15/ | Office | Infectious Diseases | Dylan Gaston, | Chronic | | 2019 | Visit | | Hero Malave MD | osteomyelitis of | | | | | | right foot (HCC) | | | | | | (Primary Dx); Acute | | | | | | osteomyelitis of | | | | | | metatarsal bone, | | | [...] | | | | of right foot ([facility]) | +--------+ + + + + | 05/14/ | Documentati | Infectious Diseases | Nimo Westbrook, | Other (*Labs from | 2019 | on | | Curriculum Supervisor | [facility] | | | | | | 05/11/2019 | | | | | | (CREATININE WITH | | | | | | GFR)) | +--------+ + + + + | 05/11/ | Telephone | Infectious Diseases | Ely Mcguire | Other (care | 2019 | | | ELLIOT Zurita | coordination- | | | | | | vancomycin trough ) | +--------+ + + + + | 05/11/ | Documentati | Infectious Diseases | Nimo Westbrook, | Other (Labs from | 2019 | on | | Curriculum Supervisor | [facility] DOS | | | | | | 04/26/2019- | | | | | | 0) | +--------+ + + + + from Last 3 Months Social History + +-------+ +--------+------+ | Tobacco [...] Temperature | 36.5 C (97.7 F) | 05/22/2019 10:39 AM | | | | | PST [...] + + | Hemoglobin A1c | | 04/06/2019, 05/15/2016 | | | Screening | 0 | | | + + + + + | Vaccine: Influenza | | | | | (Season Ended) | 0 | | | + + + + + | Colorectal Cancer | | 04/08/2019 | | | Screening (FIT) | 1 | | | + + + + + | AAA Screening | Completed | 04/06/2013, 04/22/2012 | | + + + + + Implants + +------+--------+ +--------+--------+--------+ | Implanted | Type | Area | Manufacture | Device | Shelf | Model | | | | | r | | Expira | / | | | | | | Identi | tion | Serial | | | | | | fier | Date | / Lot | + +------+--------+ +--------+--------+--------+ | Stent Vasc Epic | | | [place] | [id number] | 10/14/ | [id number] | | [id number]: | | | SCIENTIFIC | [id number] | 2023 | [id number] | | Qty: 1 on 04/11/2019 by Prosper, | | | CHRISTIANO - BSCI | 80 | | 220 / | | [place] | | | | | | /[id number] | | | | | | | | 748 | + +------+--------+ +--------+--------+--------+ | Algrft Cv Saph Vein 80-100cm | | Right: | LEMAITRE | | 09/14/ | [id number] | | - | | Leg | VASCULAR | | 2023 | [id number] | | [id number] | | | INC - MOE | | | [id number] | | ed: Qty: 1 on 04/18/2019 by | | | | | | [id number] | | Gianluca Robbins MD at [facility] | | | | | | [id number] | | [facility] | | | | | | /NA | | CENTER | | | | | | | + +------+--------+ +--------+--------+--------+ Procedures + +--------+ + + + | Procedure Name | Priori | Date/Time | Associated Diagnosis | Comments | | | ty | | | | + +--------+ + + + | LABS - EXTERNAL SCAN | | 05/21/2019 | | Results for this | | | | 12:00 AM | | procedure are in the | | | | PST | | results section. | + +--------+ + + + | VANCOMYCIN, TROUGH | Routin | 05/21/2019 | | Results for this | | | e | | | procedure are in the | | | | | | results section. | + +--------+ + + + | C-REACTIVE PROTEIN | Routin | 05/21/2019 | | Results for this | | | e | | | procedure are in the | | | | | | results section. | + +--------+ + + + | SEDIMENTATION RATE | Routin | 05/21/2019 | | Results for this | | | e | | | procedure are in the | | | | | | results section. | + +--------+ + + + | COMPREHENSIVE | Routin | 05/21/2019 | | Results for this | | METABOLIC PANEL | e | | | procedure are in the | | | | | | results section. | + +--------+ + + + | CBC W/AUTO | Routin | 05/21/2019 | | Results for this | | DIFFERENTIAL | e | | | procedure are in the | | | | | | results section. | + +--------+ + + + | LABS - EXTERNAL SCAN | | 05/14/2019 | | Results for this | | | | 12:00 AM | | procedure are in the | | | | PST | | results section. | + +--------+ + + + | SEDIMENTATION RATE | Routin | 05/14/2019 | | Results for this | | | e | | | procedure are in the | | | | | | results section. | + +--------+ + + + | C-REACTIVE PROTEIN | Routin | 05/14/2019 | | Results for this | | | e | | | procedure are in the | | | | | | results section. | + +--------+ + + + | CBC WITH | Routin | 05/14/2019 | | Results for this | | DIFFERENTIAL | e | | | procedure are in the | | | | | | results section. | + +--------+ + + + | VANCOMYCIN, TROUGH | Routin | 05/14/2019 | | Results for this | | | e | | | procedure are in the | | | | | | results section. | + +--------+ + + + | COMPREHENSIVE | Routin | 05/14/2019 | | Results for this | | METABOLIC PANEL | e | | | procedure are in the | | | | | | results section. | + +--------+ + + + | CREATININE | Routin | 05/11/2019 | | Results for this | | | e | 3:51 PM | | procedure are in the | | | | PST | | results section. | + +--------+ + + + | LABS - EXTERNAL SCAN | | 05/11/2019 | | Results for this | | | | 12:00 AM | | procedure are in the | | | | PST | | results section. | + +--------+ + + + from Last 3 Months Results LABS - EXTERNAL SCAN (05/21/2019 12:00 AM PST)Only the most recent of 3 results within the time period is included. + + + | Narrative | Performed At | + + + | Ordered by an | | | unspecified provider. | | + + + CBC w/ Auto Differential (05/21/2019) + + + + + + | Component | Value | Ref Range | Performed | Pathologist | | | | | At | Signature | + + + + + + | WBC, | 10.7 | 4.5 - 11.00 | REFERENCE | | | External | | K/uL | LAB | | | | | | [facility] | | | | [facility] | | + + + + + + | RBC, | 4.13 (A) | 4.3 - 5.7 M/uL | REFERENCE | | | External | | | LAB | | | | | | [facility] | | | | | [facility] | | + + + + + + | HGB, | 10.2 (A) | 13.5 - 18.0 | REFERENCE | | | External | | g/dL | LAB | | | | | | [facility] | | | | | | [facility] | | + + + + + + | HCT, | 32.1 (A) | 41 - 50 % | REFERENCE | | | External | | | LAB | | | | | | [facility] | | | | | | [facility] | | + + + + + + | MCV | 77.5 (A) | 81 - 99 fl | REFERENCE | | | | | | LAB | | | | | | [facility] | | | | | | [facility] | | + + + + + + | RDW | 24.0 (A) | 10.5 - 15.0 % | REFERENCE | | | | | | LAB | | | | | | [facility] | | | | | | [facility] | | + + + + + + | MCH | 25 (A) | 27 - 33 pg | REFERENCE | | | | | | LAB | | | | | | [facility] | | | | | | [facility] | | + + + + + + | MCHC | 32 | 30 - 36 g/dL | REFERENCE | | | | | | LAB | | | | | | [facility] | | | | | | [facility] | | + + + + + + | PLT, | 201 | 140 - 440 K/uL | REFERENCE | | | External | | | LAB | | | | | | [facility] | | | | | | [facility] | | + + + + + + | Neutrophils | 59.4 | 39 - 80 % | REFERENCE | | | %, | | | LAB | | | External | | | [facility] | | | | | | [facility] | | + + + + + + | Lymphocytes | 21.2 (A) | 24 - 44 % | REFERENCE | | | %, | | | LAB | | | External | | | [facility] | | | | | | [facility] | | + + + + + + | Monocytes | 7.9 | 0 - 12 % | REFERENCE | | | %, External | | | LAB | | | | | | [facility] | | | | | | [facility] | | + + + + + + | Eosinophils | 10.9 (A) | 0 - 6 % | REFERENCE | | | %, | | | LAB | | | External | | | [facility] | | | | | | [facility] | | + + + + + + | Basophils | 0.6 | 0 - 2 % | REFERENCE | | | %, External | | | LAB | | | | | | [facility] | | | | | | [facility] | | + + + + + + | Neutrophils | 6.36 | 2.0 - 6.9 K/uL | REFERENCE | | | , Absolute, | | | LAB | | | External | | | [facility] | | | | | | [facility] | | + + + + + + | Lymphocytes | 2.27 | 0.6 - 3.4 K/uL | REFERENCE | | | , Absolute, | | | LAB | | | External | | | [facility] | | | | | | [facility] | | + + + + + + | Monocytes, | 0.85 | 0.0 - 1.1 K/uL | REFERENCE | | | Absolute, | | | LAB | | | External | | | [facility] | | | | | | [facility] | | + + + + + + | Eosinophils | 1.17 (A) | 0.0 - 0.7 K/uL | REFERENCE | | | , Absolute | | | LAB | | | | | | [facility] | | | | | | [facility] | | + + + + + + | Basophils, | 0.06 | 0.0 - 0.2 K/uL | REFERENCE | | | Absolute | | | LAB | | | | | | [facility] | | | | | | [facility] | | + + + + + + + + | Specimen | + + | Blood | + + + + + + + | Performing | Address | City/State/Zipcode | Phone Number | | Organization | | | | + + + + + | REFERENCE LAB | [address] | [place] | [phone] | | [facility] | | [address] | | + + + + + Sedimentation Rate (05/21/2019)Only the most recent of 2 results within the time period is included. + +--------+ + + + | Component | Value | Ref Range | Performed | Pathologist | | | | | At | Signature | + +--------+ + + + | Erythrocyte | 35 (A) | 0 - 15 mm/hr | REFERENCE | | | | | | LAB | | | Sedimentati | | | [facility] | | | on Rate | | | [facility] | | + +--------+ + + + + + | Specimen | + + | Blood | + + + + + + + | Performing | Address | City/State/Zipcode | Phone Number | | Organization | | | | + + + + + | REFERENCE LAB | [address] | [place] | [phone] | | [facility] | | [address] | | + + + + + C-Reactive Protein (05/21/2019)Only the most recent of 2 results within the time period is included. + + + + + + | Component | Value | Ref Range | Performed | Pathologist | | | | | At | Signature | + + + + + + | CRP | 18.0 (A) | 0 - 5 mg/L | REFERENCE | | | | | | LAB | | | | | | [facility] | | | | | | [facility] | | + + + + + + + + | Specimen | + + | Blood | + + + + + + + | Performing | Address | City/State/Zipcode | Phone Number | | Organization | | | | + + + + + | REFERENCE LAB | [facility] | [place] | [phone] | | [facility] | | [address] | | + + + + + Vancomycin, Trough (05/21/2019)Only the most recent of 2 results within the time period is included. + + + + + + | Component | Value | Ref Range | Performed | Pathologist | | | | | At | Signature | + + + + + + | Vancomycin, | 21.1 (A) | 10 - 15 ug/mL | REFERENCE | | | Trough | | | LAB | | | | | | [facility] | | | | | | [facility] | | + + + + + + + + | Specimen | + + | Blood | + + + + + + + | Performing | Address | City/State/Zipcode | Phone Number | | Organization | | | | + + + + + | REFERENCE LAB | [address] [facility] | [place] | [phone] | | [facility] | | [address] | | + + + + + Comprehensive Metabolic Panel (05/21/2019)Only the most recent of 2 results within the time period is included. + + + + + + | Component | Value | Ref Range | Performed | Pathologist | | | | | At | Signature | + + + + + + | Na | 137 | 132 - 143 | REFERENCE | | | | | mmol/L | LAB | | | | | | [facility] | | | | | | [facility] | | + + + + + + | K | 4.7 | 3.6 - 5.1 | REFERENCE | | | | | mmol/L | LAB | | | | | | [facility] | | | | | | [facility] | | + + + + + + | Cl | 98 | 95 - 112 mmol/L | REFERENCE | | | | | | LAB | | | | | | [facility] | | | | | | [facility] | | + + + + + + | CO2 | 33 (A) | 19 - 31 mmol/L | REFERENCE | | | | | | LAB | | | | | | [facility] | | | | | | [facility] | | + + + + + + | Anion Gap | 11 | 7 - 21 mmol/L | REFERENCE | | | | | | LAB | | | | | | [facility] | | | | | | [facility] | | + + + + + + | Glucose | 75 | 70 - 100 mg/dL | REFERENCE | | | | | | LAB | | | | | | [facility] | | | | | | [facility] | | + + + + + + | BUN | 37 (A) | 6 - 23 mg/dL | REFERENCE | | | | | | LAB | | | | | | [facility] | | | | | | [facility] | | + + + + + + | Creatinine | 1.08 | 0.70 - 1.18 | REFERENCE | | | | | | LAB | | | | | | [facility] | | | | | | [facility] | | + + + + + + | GFR | 67 | | REFERENCE | | | ESTIMATE | | | LAB | | | (REF) | | | [facility] | | | | | | [facility] | | + + + + + + | BUN/Creatin | 34.3 (A) | 6.0 - 28.6 | REFERENCE | | | ine Ratio | | | LAB | | | | | | [facility] | | | | | | [facility] | | + + + + + + | Calcium | 8.2 (A) | 8.5 - 10.3 | REFERENCE | | | | | | LAB | | | | | | [facility] | | | | | | [facility] | | + + + + + + | AST | 34 | 13 - 39 U/L | REFERENCE | | | | | | LAB | | | | | | [facility] | | | | | | [facility] | | + + + + + + | ALT | 35 | 7 - 52 U/L | REFERENCE | | | | | | LAB | | | | | | [facility] | | | | | | [facility] | | + + + + + + | Alkaline | 123 (A) | 31 - 120 U/L | REFERENCE | | | Phosphatase | | | LAB | | | | | | [facility] | | | | | | [facility] | | + + + + + + | Bilirubin | 0.4 | 0.0 - 1.2 mg/dL | REFERENCE | | | Total | | | LAB | | | | | | [facility] | | | | | | [facility] | | + + + + + + | Total | 6.6 | 6.0 - 8.3 g/dL | REFERENCE | | | Protein | | | LAB | | | | | | [facility] | | | | | | [facility] | | + + + + + + | Albumin | 3.0 (A) | 3.5 - 5.0 g/dL | REFERENCE | | | | | | LAB | | | | | | [facility] | | | | | | [facility] | | + + + + + + | Globulin | 3.6 (A) | 1.8 - 3.5 | REFERENCE | | | | | | LAB | | | | | | [facility] | | | | | | [facility] | | + + + + + + | A/G Ratio | 0.8 (A) | 1.1 - 2.4 | REFERENCE | | | | | | LAB | | | | | | [facility] | | | | | | [facility] | | + + + + + + + + | Specimen | + + | Blood | + + + + + + + | Performing | Address | City/State/Zipcode | Phone Number | | Organization | | | | + + + + + | REFERENCE LAB | [address] [facility] | [place] | [phone] | | [facility] | | [address] | | + + + + + CBC with Differential (05/14/2019) + + + + + + | Component | Value | Ref Range | Performed | Pathologist | | | | | At | Signature | + + + + + + | WBC | 8.9 | 4.5 - 11.0 K/uL | EXTERNAL | | | | | | LAB | | + + + + + + | RBC COUNT. | 4.10 (A) | 4.3 - 5.7 M/uL | EXTERNAL | | | | | | LAB | | + + + + + + | Hemoglobin | 10.1 (A) | 13.5 - 18.0 | EXTERNAL | | | | | g/dL | LAB | | + + + + + + | Hematocrit | 31.8 (A) | 41.0 - 50.0 % | EXTERNAL | | | | | | LAB | | + + + + + + | MCV | 77.5 (A) | 81 - 99 fl | EXTERNAL | | | | | | LAB | | + + + + + + | RDW | 25.2 (A) | 10.5 - 15.0 % | EXTERNAL | | | | | | LAB | | + + + + + + | MCH | 25 (A) | 27 - 33 pg | EXTERNAL | | | | | | LAB | | + + + + + + | MCHC | 32.0 | 30.0 - 36.0 | EXTERNAL | | | | | g/dL | LAB | | + + + + + + | Platelet | 220 | 140 - 440 K/uL | EXTERNAL | | | Count | | | LAB | | | Plasma | | | | | + + + + + + | BF % | 64 | 39 - 80 % | EXTERNAL | | | Neutrophils | | | LAB | | + + + + + + | % | 20.4 (A) | 24.0 - 44.0 % | EXTERNAL | | | Lymphocytes | | | LAB | | + + + + + + | Monocyte % | 9.5 | 0 - 12 % | EXTERNAL | | | | | | LAB | | + + + + + + | Eosinophils | 6.0 | 0 - 6 % | EXTERNAL | | | % | | | LAB | | + + + + + + | Basophils % | 0.6 | 0 - 2 % | EXTERNAL | | | | | | LAB | | + + + + + + | Neutrophils | 5.85 | 2.0 - 6.9 K/ul | EXTERNAL | | | , Absolute | | | LAB | | + + + + + + | Absolute | 0 | 0 - 1 K/uL | EXTERNAL | | | Bands | | | LAB | | + + + + + + | Absolute | 1.82 | 0.5 - 3.4 K/ul | EXTERNAL | | | Lymphocytes | | | LAB | | + + + + + + | Absolute | 0.85 | 0.0 - 1.1 K/ul | EXTERNAL | | | Monocytes | | | LAB | | + + + + + + | Eosinophils | 0.53 | 0.0 - 0.7 K/ul | EXTERNAL | | | , Absolute | | | LAB | | + + + + + + | Basophils, | 0.05 | 0 - 2 K/ul | EXTERNAL | | | Absolute | | | LAB | | + + + + + + + + | Specimen | + + | Blood | + + + +---------+ + + | Performing | Address | City/State/Zipcode | Phone Number | | Organization | | | | + +---------+ + + | EXTERNAL LAB | | | | + +---------+ + + Creatinine (05/11/2019 3:51 PM PST) + +-------+ [...] + + + | REFERENCE LAB | [address] [facility] | [place] | [phone] | | [place] | | [address] | | + + + + + from Last 3 Months Additional Health Concerns + + + + | Infection | Noted Time | Resolved Time | + + + + | Methicillin-resistant Staphylococcus aureus | 04/11/2019 2:01 PM | | | | PST | | + + + + Insurance + +--------+ +--------+ +---------+--------+ | Payer | Benefi | Subscriber | Effect | Phone | Address | Type | | | t Plan | ID | erum | | | | | | / | | Dates | | | | | | Group | | | | | | + +--------+ +--------+ +---------+--------+ | MEDICARE | MEDICA | [id number] | | [phone] | | Medica | | | RE | | 012-Pr | 5 | | re | | | PART A | | esent | | | | | | AND B | | | | | | + +--------+ +--------+ +---------+--------+ | [employer] ADMIN | V[place] | [id number] | | | | Indemn | | | NS | | 018-Pr | | | ity | | | ADMIN | | esent | | | | | | [place] | | | | | | | [place] | | | | | | + +--------+ +--------+ +---------+--------+ | MEDICARE | MEDICA | [id number] | | [phone] | | Medica | | | RE | | 012-Pr | 5 | | re | | | PART A | | esent | | | | | | AND B | | | | | | + +--------+ +--------+ +---------+--------+ | MEDICARE | MEDICA | [id number] | | [phone] | | Medica | | | RE | | 012-Pr | 5 | | re | | | PART A | | esent | | | | | | AND B | | | | | | + +--------+ +--------+ +---------+--------+ | | TRICAR | [id number] | | [phone] | | Indemn | | | E FOR | | 020-Pr | 0 | | ity | | | LIFE | | esent | | | | + +--------+ +--------+ +---------+--------+ + +--------+ +--------+ + + | Guarantor Name | Accoun | Relation to | Date | Phone | Billing Address | | | t Type | Patient | of | | | | | | | | | | + +--------+ +--------+ + + | Reagan Shepard | Person | Self [birth year] | [address] | | | al/Fam | | 1945 | [phone] | [place] | | | carlos | | | 2 (Home) | [phone] | + +--------+ +--------+ + + | Reagan Shepard | Person | Self | [birth year] | [address] | | | al/Fam | | 1945 | [phone] | [place] | | | [place] | | | 2 (Home) | [phone] | + +--------+ +--------+ + + | Reagan Shepard | Person | Self | [birth year] | [address] | | | al/Fam | | 1945 | [phone] | [place] | | | [place] | | | 2 (Home) | [phone] | + +--------+ +--------+ + + Advance Directives + + + + + | Type | Date Recorded | Patient | Explanation | | | | Waste/Materials Exchange Specialist | | + + + + + | Power of | | | | | Security Installer | | | | + + + + + | Advance | 11/19/2017 1:54 | | | | Directive | PM | | | + + + + + + + + + + | Code Status | Date | Date | Comments | | | Activated | Inactivated | | + + + + + | Full Code | 04/18/2019 | 04/21/2019 | | | | 5:45 PM | 4:22 PM | | + + + + + + + + +---+ | | | | | + + + +---+ | Full Code | 04/06/2019 | 04/18/2019 | | | | 2:10 AM | 5:45 PM | | + + + +---+ + + + +---+ | | | | | + + + +---+ | Full Code | 11/21/2017 | 11/25/2017 | | | | 12:45 PM | 7:02 PM | | + + + +---+ [...]
--- OUTSIDE RECORDS SUMMARY | ~2019-08-08 | XMS | Encounter Summary ---
Demographics + + + | Address | [address] | | | [place] [address] | + + + | Home Phone | | + + + | Preferred Language | Unknown | + + + | Marital Status | | + + + | Restorationist Affiliation | [id number] | + + + | Race | Unknown | + + + | Ethnic Group | Unknown | + + + Author + + + | Author | [facility] | | | and [place] | + + + | Organization | [facility] | | | and [place] | + + + | Address | Unknown | + + + | Phone | Unavailable | + + + Support + + + + + | Name | Relationship | Address | Phone | + + + + + | Jessica Shepard | ECON | [address] | | | | | [place] | | | | | [address] | | + + + + + | Bel Solis | ECON | Unknown | | + + + + + Care Team Providers + +------+ + | Care Sailing Officer Name | Role | Phone | + +------+ + | Jamar Manuel MD | PCP | | + +------+ + Reason for Visit +--------+ + | Reason | Comments | +--------+ + | Other | Labs from [facility] 04/26/2019-05/09/2019 | +--------+ + Encounter Details +--------+ + + + + | Date | Type | Department | Care Team | Description | +--------+ + + + + | 05/11/ | Documentati | [facility] | Nimo Westbrook, | Other (Labs from | | 2019 | on | INFECTIOUS DISEASE | [facility] | [facility] | | | | [address] | | 04/26/2019- | | | | [place] | | 0) | | | | [address] | | | | | | [phone] | | | +--------+ + + + [...] documented as of this encounter Progress Notes Nimo Westbrook, [facility] - 05/11/2019 1:36 PM PST*Labs from [facility] 08/2019 (CBC,BMP,VANCOMYCIN TROUGH).. *Labs from [facility] 05/01/2019 (CBC,CMP, ESR,CRP, VANCOMYCIN TROUGH).. *Labs from [facility] 05/03/2019 (CMP,VANCOMYCIN TROUGH). *Labs from [facility] 05/06/2019 (BMP,VANCOMYCIN TROUGH). *Labs from [facility] 05/09/2019 (BMP,VANCOMYCIN TROUGH RECEIVED: 05/10/2019 Labs were abstracted into [facility] and sent to scan. Kaye CMA Tdocumented in this encounter Plan of Treatment Not on filedocumented as of this encounter Procedures + +--------+ + + + | Procedure Name | Priori | Date/Time | Associated Diagnosis | Comments | | | ty | | | | + +--------+ + + + | VANCOMYCIN, TROUGH | Routin | 05/09/2019 | | Results for this | | | e | | | procedure are in the | | | | | | results section. | + +--------+ + + + | BASIC METABOLIC | Routin | 05/09/2019 | | Results for this | | PANEL | e | | | procedure are in the | | | | | | results section. | + +--------+ + + + | VANCOMYCIN, TROUGH | Routin | 05/06/2019 | | Results for this | | | e | | | procedure are in the | | | | | | results section. | + +--------+ + + + | BASIC METABOLIC | Routin | 05/06/2019 | | Results for this | | PANEL | e | | | procedure are in the | | | | | | results section. | + +--------+ + + + | VANCOMYCIN, TROUGH | Routin | 05/03/2019 | | Results for this | | | e | | | procedure are in the | | | | | | results section. | + +--------+ + + + | COMPREHENSIVE | Routin | 05/03/2019 | | Results for this | | METABOLIC PANEL | e | | | procedure are in the | | | | | | results section. | + +--------+ + + + | CBC W/AUTO | Routin | 05/01/2019 | | Results for this | | DIFFERENTIAL | e | | | procedure are in the | | | | | | results section. | + +--------+ + + + | SEDIMENTATION RATE | Routin | 05/01/2019 | | Results for this | | | e | | | procedure are in the | | | | | | results section. | + +--------+ + + + | C-REACTIVE PROTEIN | Routin | 05/01/2019 | | Results for this | | | e | | | procedure are in the | | | | | | results section. | + +--------+ + + + | VANCOMYCIN, TROUGH | Routin | 05/01/2019 | | Results for this | | | e | | | procedure are in the | | | | | | results section. | + +--------+ + + + | COMPREHENSIVE | Routin | 05/01/2019 | | Results for this | | METABOLIC PANEL | e | | | procedure are in the | | | | | | results section. | + +--------+ + + + | CBC W/AUTO | Routin | 04/26/2019 | | Results for this | | DIFFERENTIAL | e | | | procedure are in the | | | | | | results section. | + +--------+ + + + | VANCOMYCIN, TROUGH | Routin | 04/26/2019 | | Results for this | | | e | | | procedure are in the | | | | | | results section. | + +--------+ + + + | BASIC METABOLIC | Routin | 04/26/2019 | | Results for this | | PANEL | e | | | procedure are in the | | | | | | results section. | + +--------+ + + + documented in this encounter Results Vancomycin, Trough (05/09/2019) + + + + + + | Component | Value | Ref Range | Performed | Pathologist | | | | | At | Signature | + + + + + + | Vancomycin, | 21.5 (A) | 10 - 15 UG/ML | REFERENCE | | | Trough | [...] + | REFERENCE LAB | [address] [facility] | [place] | [phone] | | [facility] | | [address] | | + + + + + Basic Metabolic Panel (05/09/2019) + + + + + + | Component | Value | Ref Range | Performed | Pathologist | | | | | At | Signature | + + + + + + | Na | 139 | 132 - 143 | REFERENCE | | | | | mmol/L | LAB | | | | | | [facility] | | | | | [facility] | | + + + + + + | K | 3.8 | 3.6 - 5.1 | REFERENCE | | | | | mmol/L | LAB | | | | | | [facility] | | | | | [facility] | | + + + + + + | Cl | 102 | 95 - 112 mmol/L | REFERENCE | | | | | | LAB | | | | | | [facility] | | | | | [facility] | | + + + + + + | CO2 | 29 | 19 - 31 mmol/L | REFERENCE | | | | | | LAB | | | | | | [facility] | | | | | [facility] | | + + + + + + | Anion Gap | 12 | 7 - 21 mmol/L | REFERENCE | | | | | | LAB | | | | | | [facility] | | | [facility] | | + + + + + + | Glucose | 86 | 70 - 100 mg/dL | REFERENCE | | | | | | LAB | | | | | | [facility] | | | | | [facility] | | + + + + + + | Calcium | 7.9 (A) | 8.5 - 10.3 | REFERENCE | | | | | | LAB | | | | | | [facility] | | | | | [facility] | | + + + + + + | BUN | 30 (A) | 6 - 23 mg/dL | REFERENCE | | | | | | LAB | | | | | | [facility] | | | | | [facility] | | + + + + + + | Creatinine | 1.22 (A) | 0.70 - 1.18 | REFERENCE | | | | | | LAB | | | | | | [facility] | | | | | [facility] | | + + + + + + | GFR | 58 (A) | 60 | REFERENCE | | | ESTIMATE | | | LAB | | | (REF) | | | [facility] | | | | | [facility] | | + + + + + + | BUN/Creatin | 24.6 | 6.0 - 28.6 | REFERENCE | [...] + | REFERENCE LAB | [address] [facility] | [place] | [phone] | | [facility] | | [address] | | + + + + + Vancomycin, Trough (05/06/2019) + +-------+ + + + | Component | Value | Ref Range | Performed | Pathologist | | | | | At | Signature | + +-------+ + + + | Vancomycin, | 14.6 | 10 - 15 UG/ML | REFERENCE | | | Trough | [...] + + + | REFERENCE LAB | [address] [facility] | [place] | [phone] | | [facility] | | [address] | | + + + + + Basic Metabolic Panel (05/06/2019) + + + + + + | Component | Value | Ref Range | Performed | Pathologist | | | | | At | Signature | + + + + + + | Na | 141 | 132 - 143 | REFERENCE | | | | | mmol/L | LAB | | | | | | [facility] | | | | | | [facility] | | + + + + + + | K | 3.6 | 3.6 - 5.1 | REFERENCE | | | | | mmol/L | LAB | | | | | | [facility] | | | | | | [facility] | | + + + + + + | Cl | 104 | 95 - 112 mmol/L | REFERENCE | | | | | | LAB | | | | | | [facility] | | | | | | [facility] | | + + + + + + | CO2 | 31 | 19 - 31 mmol/L | REFERENCE | | | | | | LAB | | | | | | [facility] | | | | | | [facility] | | + + + + + + | Anion Gap | 10 | 7 - 21 mmol/L | REFERENCE | | | | | | LAB | | | | | | [facility] | | | | | [facility] | | + + + + + + | Glucose | 105 (A) | 70 - 100 mg/dL | REFERENCE | | | | | | LAB | | | | | | [facility] | | | | | [facility] | | + + + + + + | Calcium | 7.6 (A) | 8.5 - 10.3 | REFERENCE | | | | | | LAB | | | | | | [facility] | | | | | [facility] | | + + + + + + | BUN | 23 | 6 - 23 mg/dL | REFERENCE | | | | | | LAB | | | | | | [facility] | | | | | [facility] | | + + + + + + | Creatinine | 0.77 | 0.70 - 1.18 | REFERENCE | | | | | | LAB | | | | | | [facility] | | | | | | [facility] | | + + + + + + | GFR | 99 | | REFERENCE | | | ESTIMATE | | | LAB | | | (REF) | | | [facility] | | | | | | [facility] | | + + + + + + | BUN/Creatin | 29.9 (A) | 6.0 - 28.6 | REFERENCE [...] + | REFERENCE LAB | [address] [facility] | [place] | [phone] | | [facility] | | [address] | | + + + + + Vancomycin, Trough (05/03/2019) + + + + + + | Component | Value | Ref Range | Performed | Pathologist | | | | | At | Signature | + + + + + + | Vancomycin, | 16.3 (A) | 10 - 15 UG/ML | REFERENCE | | | Trough | [...] + + | REFERENCE LAB | [address] | [place] | [phone] | | [facility] | | [address] | | + + + + + Comprehensive Metabolic Panel (05/03/2019) + + + + + + | Component | Value | Ref Range | Performed | Pathologist | | | | | At | Signature | + + + + + + | Na | 140 | 132 - 143 | REFERENCE | | | | | mmol/L | LAB | | | | | | [facility] | | | | | [facility] | | + + + + + + | K | 3.2 (A) | 3.6 - 5.1 | REFERENCE | | | | | mmol/L | LAB | | | | | | [facility] | | | | | | [facility] | | + + + + + + | Cl | 104 | 95 - 112 mmol/L | REFERENCE | | | | | | LAB | | | | | | [facility] | | | | | [facility] | | + + + + + + | CO2 | 29 | 19 - 31 mmol/L | REFERENCE | | | | | | LAB | | | | | | [facility] | | | | | [facility] | | + + + + + + | Anion Gap | 10 | 7 - 21 mmol/L | REFERENCE | | | | | | LAB | | | | | | [facility] | | | | | [facility] | | + + + + + + | Glucose | 121 (A) | 70 - 100 mg/dL | REFERENCE | | | | | | LAB | | | | | | [facility] | | | | | [facility] | | + + + + + + | BUN | 24 (A) | 6 - 23 mg/dL | REFERENCE | | | | | | LAB | | | | | | [facility] | | | | | [facility] | | + + + + + + | Creatinine | 0.73 | 0.70 - 1.18 | REFERENCE | | | | | | LAB | | | | | | [facility] | | | | | [facility] | | + + + + + + | GFR | 106 | | REFERENCE | | | ESTIMATE | | | LAB | | | (REF) | | | [facility] | | | | | | [facility] | | + + + + + + | BUN/Creatin | 32.9 (A) | 6.0 - 28.6 | REFERENCE | | | ine Ratio | | | LAB | | | | | | [facility] | | | | | | [facility] | | + + + + + + | Calcium | 7.9 (A) | 8.5 - 10.3 | REFERENCE | | | | | | LAB | | | | | | [facility] | | | | | [facility] | | + + + + + + | AST | 17 | 13 - 39 U/L | REFERENCE | | | | | | LAB | | | | | | [facility] | | | | | [facility] | | + + + + + + | ALT | 22 | 7 - 52 U/L | REFERENCE | | | | | | LAB | | | | | | [facility] | | | | | [facility] | | + + + + + + | Alkaline | 94 | 31 - 120 U/L | REFERENCE | | | Phosphatase | | | LAB | | | | | | [facility] | | | | | | [facility] | | + + + + + + | Bilirubin | 0.5 | 0.0 - 1.2 mg/dL | REFERENCE | | | Total | | | LAB | | | | | | [facility] | | | | | [facility] | | + + + + + + | Total | 6.2 | 6.0 - 8.3 g/dL | REFERENCE | | | Protein | | | LAB | | | | | | [facility] | | | | | [facility] | | + + + + + + | Albumin | 2.7 (A) | 3.5 - 5.0 g/dL | REFERENCE | | | | | | LAB | | | | | | [facility] | | | | | [facility] | | + + + + + + | Globulin | 3.5 | 1.8 - 3.5 | REFERENCE | [...] + | REFERENCE LAB | [address] [facility] | [place], [place] | [phone] | | [facility] | | [address] | | + + + + + C-Reactive Protein (05/01/2019) + + + + + + | Component | Value | Ref Range | Performed | Pathologist | | | | | At | Signature | + + + + + + | CRP | 24.7 (A) | 0 - 5 mg/L | [...] + + | REFERENCE LAB | [address] [facility] | [place], [place] | [phone] | | [facility] | | [address] | | + + + + + Vancomycin, Trough (05/01/2019) + + + + + + | Component | Value | Ref Range | Performed | Pathologist | | | | | At | Signature | + + + + + + | Vancomycin, | 17.2 (A) | 10 - 15 UG/ML | REFERENCE | | | Trough | [...] + + | REFERENCE LAB | [address] | [place] | [phone] | | [facility] | | [address] | | + + + + + Sedimentation Rate (05/01/2019) + +--------+ + + + | Component | Value | Ref Range | Performed | Pathologist | | | | | At | Signature | + +--------+ + + + | Erythrocyte | 40 (A) | 0 - 15 mm/hr | [...] [address] | [place] | [phone] | | [facility] | | [address] | | + + + + + CBC w/ Auto Differential (05/01/2019) + + + + + + | Component | Value | Ref Range | Performed | Pathologist | | | | | At | Signature | + + + + + + | WBC, | 10.6 | 4.5 - 11.0 K/uL | REFERENCE | | | External | | | LAB | | | | | | [facility] | | | | | [facility] | | + + + + + + | RBC, | 4.04 (A) | 4.3 - 5.7 M/uL | REFERENCE | | | External | | | LAB | | | | | | [facility] | | | | | [facility] | | + + + + + + | HGB, | 9.7 (A) | 13.5 - 18.0 | REFERENCE | | | External | | g/dL | LAB | | | | | | [facility] | | | | | [facility] | | + + + + + + | HCT, | 31.1 (A) | 41 - 50 % | REFERENCE | | | External | | | LAB | | | | | | [facility] | | | | | [facility] | | + + + + + + | MCV | 77.0 (A) | 81 - 99 fl | REFERENCE | | | | | | LAB | | | | | | [facility] | | | | | [facility] | | + + + + + + | RDW | 27.5 (A) | 10.5 - 15.0 % | REFERENCE | | | | | | LAB | | | | | | [facility] | | | | | [facility] | | + + + + + + | MCH | 24 (A) | 27 - 33 pg | REFERENCE | | | | | | LAB | | | | | | [facility] | | | | | [facility] | | + + + + + + | MCHC | 31 | 30 - 36 g/dL | REFERENCE | | | | | | LAB | | | | | | [facility] | | | | [facility] | | + + + + + + | PLT, | 329 | 140 - 440 K/uL | REFERENCE | | | External | | | LAB | | | | | | [facility] | | | | | [facility] | | + + + + + + | Neutrophils | 70.4 | 39 - 80 % | REFERENCE | | | %, | | | LAB | | | External | | | [facility] | | | | | [facility] | | + + + + + + | Lymphocytes | 15.9 (A) | 24 - 44 % | REFERENCE | | | %, | | | LAB | | | External | | | [facility] | | | | | [facility] | | + + + + + + | Monocytes | 9.6 | 0 - 12 % | REFERENCE | | | %, External | | | LAB | | | | | | [facility] | | | | | | [facility] | | + + + + + + | Eosinophils | 3.5 | 0 - 6 % | REFERENCE [...] + + + + | Neutrophils | 7.46 (A) | 2.0 - 6.9 K/uL | REFERENCE | | | , Absolute, | | | LAB | | | External | | | [facility] | | | [facility] | | + + + + + + | Lymphocytes | 1.69 | 0.6 - 3.4 K/uL | REFERENCE | | | , Absolute, | | | LAB | | | External | | | [facility] | | | | [facility] | | + + + + + + | Monocytes, | 1.02 | 0.0 - 1.1 K/uL | REFERENCE | | | Absolute, | | | LAB | | | External | | | [facility] | | | | | [facility] | | + + + + + + | Eosinophils | 0.37 | 0.0 - 0.7 K/uL | REFERENCE | | | , Absolute | | | LAB | | | | | | [facility] | | | | | [facility] | | + + + + + + | Basophils, | 0.06 | 0.00 - 0.2 K/uL | REFERENCE | | [...] REFERENCE LAB | [address] | [place] | [phone] | | [facility] | | [address] | | + + + + + Comprehensive Metabolic Panel (05/01/2019) + + + + + + | Component | Value | Ref Range | Performed | Pathologist | | | | | At | Signature | + + + + + + | Na | 141 | 132 - 143 | REFERENCE | | | | | mmol/L | LAB | | | | | | [facility] | | | | | [facility] | | + + + + + + | K | 3.8 | 3.6 - 5.1 | REFERENCE | | | | | mmol/L | LAB | | | | | | [facility] | | | | | [facility] | | + + + + + + | Cl | 103 | 95 - 112 mmol/L | REFERENCE | | | | | | LAB | | | | | | [facility] | | | [facility] | | + + + + + + | CO2 | 30 | 19 - 31 mmol/L | REFERENCE | | | | | | LAB | | | | | | [facility] | | | [facility] | | + + + + + + | Anion Gap | 12 | 7 - 21 mmol/L | REFERENCE | | | | | | LAB | | | | | | [facility] | | | [facility] | | + + + + + + | Glucose | 112 (A) | 70 - 100 mg/dL | REFERENCE | | | | | | LAB | | | | | | [facility] | | | [facility] | | + + + + + + | BUN | 27 (A) | 6 - 23 mg/dL | REFERENCE | | | | | | LAB | | | | | | [facility] | | | | | [facility] | | + + + + + + | Creatinine | 0.83 | 0.70 - 1.18 | REFERENCE | | | | | | LAB | | | | | | [facility] | | | | [facility] | | + + + + + + | GFR | 91 | | REFERENCE | | | ESTIMATE | | | LAB | | | (REF) | | | [facility] | | | [facility] | | + + + + + + | BUN/Creatin | 32.5 (A) | 6.0 - 28.6 | REFERENCE | | | ine Ratio | | | LAB | | | | | | [facility] | | | | | [facility] | | + + + + + + | Calcium | 7.9 (A) | 8.5 - 10.3 | REFERENCE | | | | | | LAB | | | | | | [facility] | | | | [facility] | | + + + + + + | AST | 23 | 13 - 39 U/L | REFERENCE | | | | | | LAB | | | | | | [facility] | | | [facility] | | + + + + + + | ALT | 26 | 7 - 52 U/L | REFERENCE | | | | | | LAB | | | | | | [facility] | | | | [facility] | | + + + + + + | Alkaline | 89 | 31 - 120 U/L | REFERENCE | | | Phosphatase | | | LAB | | | | | | [facility] | | | | | [facility] | | + + + + + + | Bilirubin | 0.6 | 0.0 - 1.2 mg/dL | REFERENCE | | | Total | | | LAB | | | | | | [facility] | | | | | [facility] | | + + + + + + | Total | 6.3 | 6.0 - 8.3 g/dL | REFERENCE | | | Protein | | | LAB | | | | | | [facility] | | | | | [facility] | | + + + + + + | Albumin | 2.6 (A) | 3.5 - 5.0 g/dL | REFERENCE | | | | | | LAB | | | | | | [facility] | | | | [facility] | | + + + + + + | Globulin | 3.7 (A) | 1.8 - 3.5 | REFERENCE | | | | | | LAB | | | | | | [facility] | | | | [facility] | | + + + + + + | A/G Ratio | 0.7 (A) | 1.1 - 2.4 | REFERENCE [...] + + | REFERENCE LAB | [address] [facility] | [place] | [phone] | | [facility] | | [address] | | + + + + + Basic Metabolic Panel (04/26/2019) + + + + + + | Component | Value | Ref Range | Performed | Pathologist | | | | | At | Signature | + + + + + + | Na | 139 | 132 - 143 | REFERENCE | | | | | mmol/L | LAB | | | | | | [facility] | | | | | [facility] | | + + + + + + | K | 4.3 | 3.6 - 5.1 | REFERENCE | | | | | mmol/L | LAB | | | | | | [facility] | | | | | [facility] | | + + + + + + | Cl | 101 | 95 - 112 mmol/L | REFERENCE [...] + | Anion Gap | 9 | 7 - 21 mmol/L | REFERENCE | | | | | | LAB | | | | | | [facility] | | [facility] | | + + + + + + | Glucose | 143 (A) | 70 - 100 mg/dL | REFERENCE | | | | | | LAB | | | | | | [facility] | | | | | [facility] | | + + + + + + | Calcium | 7.8 (A) | 8.5 - 10.3 | REFERENCE | | | | | | LAB | | | | | | [facility] | | | | | [facility] | | + + + + + + | BUN | 23 | 6 - 23 mg/dL | REFERENCE | | | | | | LAB | | | | | | [facility] | | | | [facility] | | + + + + + + | Creatinine | 0.74 | 0.70 - 1.18 | REFERENCE | | | | | | LAB | | | | | | [facility] | | | | | [facility] | | + + + + + + | GFR | 104 | | REFERENCE | | | ESTIMATE | | | LAB | | | (REF) | | | [facility] | | | | [facility] | | + + + + + + | BUN/Creatin | 31.1 (A) | 6.0 - 28.6 | REFERENCE [...] + | REFERENCE LAB | [address] [facility] | [place] | [phone] | | [facility] | | [address] | | + + + + + CBC w/ Auto Differential (04/26/2019) + + + + + + | Component | Value | Ref Range | Performed | Pathologist | | | | | At | Signature | + + + + + + | WBC, | 7.9 | 4.5 - 11.00 | REFERENCE | | | External | | K/uL | LAB | | | | | | [facility] | | | | | [facility] | | + + + + + + | RBC, | 3.87 (A) | 4.3 - 5.7 M/uL | REFERENCE | | | External | | | LAB | | | | | | [facility] | | | | | [facility] | | + + + + + + | HGB, | 9.4 (A) | 13.5 - 18.0 | REFERENCE | | | External | | g/dL | LAB | | | | | | [facility] | | | | | [facility] | | + + + + + + | HCT, | 30.0 (A) | 41 - 50 % | REFERENCE | | | External | | | LAB | | | | | | [facility] | | | | | [facility] | | + + + + + + | MCV | 77.4 (A) | 81 - 99 fl | REFERENCE | | | | | | LAB | | | | | | [facility] | | | | [facility] | | + + + + + + | RDW | 28.4 (A) | 10.5 - 15.0 % | REFERENCE | | | | | | LAB | | | | | | [facility] | | | | | [facility] | | + + + + + + | MCH | 24 (A) | 27 - 33 pg | REFERENCE | | | | | | LAB | | | | | | [facility] | | | | | [facility] | | + + + + + + | MCHC | 31 | 30 - 36 g/dL | REFERENCE | | | | | | LAB | | | | | | [facility] | | | | | [facility] | | + + + + + + | PLT, | 301 | 140 - 440 K/uL | REFERENCE | | | External | | | LAB | | | | | | [facility] | | | | | [facility] | | + + + + + + | Neutrophils | 70.3 | 39 - 80 % | REFERENCE | | | %, | | | LAB | | | External | | | [facility] | | | | [facility] | | + + + + + + | Lymphocytes | 15.7 (A) | 24 - 44 % | REFERENCE | | | %, | | | LAB | | | External | | | [facility] | | | | | [facility] | | + + + + + + | Monocytes | 10.6 | 0 - 12 % | REFERENCE | | | %, External | | | LAB | | | | | | [facility] | | | | | [facility] | | + + + + + + | Eosinophils | 3.0 | 0 - 6 % | REFERENCE | | | %, | | | LAB | | | External | | | [facility] | | | | | [facility] | | + + + + + + | Basophils | 0.4 | 0 - 2 % | REFERENCE | | | %, External | | | LAB | | | | | | [facility] | | | | | [facility] | | + + + + + + | Neutrophils | 5.55 | 2.0 - 6.9 K/uL | REFERENCE | | | , Absolute, | | | LAB | | | External | | | [facility] | | | | | [facility] | | + + + + + + | Lymphocytes | 1.24 | 0.6 - 3.4 K/uL | REFERENCE | | | , Absolute, | | | LAB | | | External | | | [facility] | | | | | [facility] | | + + + + + + | Monocytes, | 0.84 | 0.00 - 1.1 K/uL | REFERENCE | | | Absolute, | | | LAB | | | External | | | [facility] | | | | | | [facility] | | + + + + + + | Eosinophils | 0.24 | 0.0 - 0.7 K/uL | REFERENCE | | | , Absolute | | | LAB | | | | | | [facility] | | | | | | [facility]KR | | + + + + + + | Basophils, | 0.03 | 0.0 - 0.2 K/uL | REFERENCE [...] + | REFERENCE LAB | [address] [facility] | [place] | [phone] | | [facility] | | [address] | | + + + + + Vancomycin, Trough (04/26/2019) + +-------+ + + + | Component | Value | Ref Range | Performed | Pathologist | | | | | At | Signature | + +-------+ + + + | Vancomycin, | 14.5 | 10 - 15 ug/mL | REFERENCE | | | Trough | | | LAB | | | | | | [facility] | | | | | | LABORATORY | | + +-------+ + + + + + | Specimen | + + | Blood | + + + + + + + | Performing | Address | City/State/Zipcode | Phone Number | | Organization | | | | + + + + + | REFERENCE LAB | [address] | [place] | [phone] | | [facility] | [address] | [address] | | | LABORATORY | | | | + + + + + | REFERENCE LAB | [address] [facility] | [place], [place] | | | [facility] | [address] | [address] | | | LABORATORY | | | | + + [...]
--- OUTSIDE RECORDS SUMMARY | ~2019-08-08 | XMS | Encounter Summary ---
Demographics + + + | Address | [address] | | | [place] [address] | + + + | Home Phone | | + + + | Preferred Language | Unknown | + + + | Marital Status | | + + + | Confucianism Affiliation | 1076 | + + + | Race | Unknown | + + + | Ethnic Group | Unknown | + + + Author + + + | Author | [facility] | | | and [place] | + + + | Organization | [facility] | | | [place] | + + + | Address | Unknown | + + + | Phone | Unavailable | + + + Support + + + + + | Name | Relationship | Address | Phone | + + + + + | Jessica Shepard | ECON | [address] | | | | | [place] | | | | | [address] | | + + + + + | Bel Solis | ECON | Unknown | | + + + + + Care Team Providers + +------+ + | Care Supervisor Fish [employer] Name | Role | Phone | + [...] + + | 06/24/ | Telephone | [facility] | Mika Tim DNP | Consult | | 2019 | | VASCULAR SURGERY | [address] | | | | | [address] | [place], [place] | | | | | [place], [place] | [address] | | | | | [address] | | | | | | [phone] | | | +--------+ + + + [...]
--- OUTSIDE RECORDS SUMMARY | ~2019-08-08 | XMS | Encounter Summary ---
Demographics + + + | Address | [address] | | | [place] [address] | + + + | Home Phone | | + + + | Preferred Language | Unknown | + + + | Marital Status | | + + + | Shinto Affiliation | 1076 | + + + | Race | Unknown | + + + | Ethnic Group | Unknown | + + + Author + + + | Author | [facility] | | | [facility] [place] | + + + | Organization | [facility] | | | [facility] [place] | + + + | Address | Unknown | + + + | Phone | Unavailable | + + + Support + + + + + | Name | Relationship | Address | Phone | + + + + + | Jessica Shepard | ECON | [address] | | | | | [place] | | | | | [address] | | + + + + + | Bel Solis | ECON | Unknown | | + + + + + Care Team Providers + +------+ + | Care Mold Making [employer] Sheets Supervisor Name | Role | Phone | [...] + + | 06/25/ | Telephone | [facility] | Karyn Guerra, | Follow-up | | 2019 | | VASCULAR SURGERY | RN | | | | | [address] | | | | | | [facility] | | | | | | [address] | | | | | | [phone] | | | +--------+ + + + [...]
--- OUTSIDE RECORDS SUMMARY | ~2019-08-08 | XMS | Encounter Summary ---
Demographics + + + | Address | [address] | | | [place] [address] | + + + | Home Phone [...] + | Jessica Shepard | ECON | [address] | | | | | [place] | | | | | [address] | | + + + + + | Bel Solis | ECON | Unknown | | + + + + + Care Team Providers + +------+ + | Care Independent Contractor Name | Role | Phone | + +------+ + | Jamar Manuel MD | PCP | | + +------+ + Encounter Details +--------+ + + + + | Date | Type | Department | Care Team | Description | +--------+ + + + + | 05/18/ | Documentati | [facility] | Kelsi, | | | 2020 | on | INFECTIOUS DISEASE | MD [address] | | | | | [address] | [place] | | | | | [place], [place] | [place] [address] | | | | | [address] | [phone] | | | | | [phone] | | | +--------+ + + + [...] further issues arise over the weekend, ID master control operator physician will be contacted.Electr onically signed by [...]
--- OUTSIDE RECORDS SUMMARY | ~2019-08-08 | XMS | Encounter Summary ---
Demographics + + + | Address | [address] | | | [place] [address] | + + + | Home Phone | | + + + | Preferred Language | Unknown | + + + | Marital Status | | + + + | Episcopalian Affiliation | 1076 | + + + | Race | Unknown | + + + | Ethnic Group | Unknown | + + + Author + + + | Author | [facility] | | | and [place] | + + + | Organization | [facility] | | | and [place] | + + + | Address | Unknown | + + + | Phone | Unavailable | + + + Support + + + + + | Name | Relationship | Address | Phone | + + + + + | Jessica Shepard | ECON | [address] | | | | | [place] | | | | | [address] | | + + + + + | Bel Solis | ECON | Unknown | | + + + + + Care Team Providers + +------+ + | Care Wrapper Hands Sprayer Name | Role | Phone | + +------+ + | Dian Lr NP | PCP | | + +------+ + Encounter Details +--------+ + + + + | Date | Type | Department | Care Team | Description | +--------+ + + + + | 05/14/ | Hospital | [facility] | Conversion | Pain | | 2017 | Encounter | CONVERSION DEP [address] | Transaction, | | | | | [address] | Provider Unknown | | | | | [place] | [phone] | | | | | [address] | | | | | | [phone] | | | +--------+ + + + [...] + +--------+ + + + | CT HEAD WO CONTRAST | Routin | 05/14/2016 | | Results for this | | | e | 3:11 AM | | procedure are in the | | | | PST | | results section. | + +--------+ + + + documented in this encounter Results CT Head wo Contrast (05/14/2016 3:11 AM PST) + + | Specimen | [...]
--- OUTSIDE RECORDS SUMMARY | ~2019-08-08 | XMS | Encounter Summary ---
Demographics + + + | Address | [address] | | | [place] [address] | + + + | Home Phone | | + + + | Preferred Language | Unknown | + + + | Marital Status | | + + + | Gnosticism Affiliation | 1076 | + + + | Race | Unknown | + + + | Ethnic Group | Unknown | + + + Author + + + | Author | [facility] | | | and [place] | + + + | Organization | [facility] | | | and [place] | + + + | Address | Unknown | + + + | Phone | Unavailable | + + + Support + + + + + | Name | Relationship | Address | Phone | + + + + + | Jessica Shepard | ECON | [address] | | | | | [place] | | | | | [address] | | + + + + + | Bel Solis | ECON | Unknown | | + + + + + Care Team Providers + +------+ + | Care Refrigeration Tech Name | Role | Phone | + +------+ + | Jamar Manuel MD | PCP | | + +------+ + Reason for Visit +---------+ + | Reason | Comments | +---------+ + | Results | CBC, CMP, ESR, CRP, Vanco Trough | +---------+ + Encounter Details +--------+ + + + + | Date | Type | Department | Care Team | Description | +--------+ + + + + | 04/25/ | Documentati | [facility] | Dylan Gaston, | Results (CBC, CMP, | | 2020 | on | INFECTIOUS DISEASE | Hero Malave MD | ESR, CRP, Vanco | | | | [address] | [address] | Trough) | | | | [place], [place] | [place] [address] | | | | | [address] | [phone] | | | | | [phone] | | | +--------+ + + + [...] documented as of this encounter Progress Notes Kady Westbrook, Shipping Agent - 04/25/2019 1:18 PM PSTReceived lab results for CBC, CMP , ESR, CRP, Vancomycin Trough. Kady Westbrook. CMA documented in this encounter Plan of Treatment Not on filedocumented as of this encounter Procedures + +--------+ + + + | Procedure Name | Priori | Date/Time | Associated Diagnosis | Comments | | | ty | | | | + +--------+ + + + | SEDIMENTATION RATE | Routin | 04/23/2019 | | Results for this | | | e | 2:22 PM | | procedure are in the | | | | PST | | results section. | + +--------+ + + + | CBC WITH | Routin | 04/23/2019 | | Results for this | | DIFFERENTIAL | e | 2:22 PM | | procedure are in the | | | | PST | | results section. | + +--------+ + + + | C-REACTIVE PROTEIN | Routin | 04/23/2019 | | Results for this | | | e | 2:22 PM | | procedure are in the | | | | PST | | results section. | + +--------+ + + + | VANCOMYCIN, TROUGH | Routin | 04/23/2019 | | Results for this | | | e | 2:22 PM | | procedure are in the | | | | PST | | results section. | + +--------+ + + + | COMPREHENSIVE | Routin | 04/23/2019 | | Results for this | | METABOLIC PANEL | e | 2:22 PM | | procedure are in the | | | | PST | | results section. | + +--------+ + + + documented in this encounter Results Vancomycin, Trough (04/23/2019 2:22 PM PST) + +-------+ + + + | Component | Value | Ref Range | Performed | Pathologist | | | | | At | Signature | + +-------+ + + + | Vancomycin, | 13.8 | 10 - 15 ug/ml | REFERENCE | | | Trough | | | LAB | | | | | | [facility] | | + +-------+ + + + + + | Specimen | + + | Blood | + + + + + + + | Performing | Address | City/State/Zipcode | Phone Number | | Organization | | | | + + + + + | REFERENCE LAB | [address] [facility] | [place], [place] | [phone] | | [facility] | | [address] | | + + + + + C-Reactive Protein (04/23/2019 2:22 PM PST) + + + + + + | Component | Value | Ref Range | Performed | Pathologist | | | | | At | Signature | + + + + + + | CRP | 57.8 (A) | 0 - 5 mg/L | REFERENCE | | | | | | LAB | | | | | | [facility] | | + + + + + + + + | Specimen | + + | Blood | + + + + + + + | Performing | Address | City/State/Zipcode | Phone Number | | Organization | | | | + + + + + | REFERENCE LAB | [address] [facility] | [place], [place] | [phone] | | [facility] | | [address] | | + + + + + Sedimentation Rate (04/23/2019 2:22 PM PST) + +--------+ + + + | Component | Value | Ref Range | Performed | Pathologist | | | | | At | Signature | + +--------+ + + + | Erythrocyte | 62 (A) | 0 - 15 mm/hr | REFERENCE | | | | | | LAB | | | Sedimentati | | | [facility] | | | on Rate | | | | | + +--------+ + + + + + | Specimen | + + | Blood | + + + + + + + | Performing | Address | City/State/Zipcode | Phone Number | | Organization | | | | + + + + + | REFERENCE LAB | [address] [facility] | [place] | [phone] | | [facility] | | [address] | | + + + + + CBC with Differential (04/23/2019 2:22 PM PST) + + + + + + | Component | Value | Ref Range | Performed | Pathologist | | | | | At | Signature | + + + + + + | WBC | 8.4 | 4.5 - 11.0 K/uL | REFERENCE | | | | | | LAB | | | | | | [facility] | | + + + + + + | RBC COUNT. | 3.68 (A) | 4.3 - 5.7 M/uL | REFERENCE | | | | | | LAB | | | | | | [facility] | | + + + + + + | Hemoglobin | 8.8 (A) | 13.5 - 18.0 | REFERENCE | | | | | g/dL | LAB | | | | | | [facility] | | + + + + + + | Hct | 28.8 (A) | 41 - 50 % | REFERENCE | | | | | | LAB | | | | | | [facility] | | + + + + + + | MCV | 18.3 (A) | 81 - 99 fl | REFERENCE | | | | | | LAB | | | | | | [facility] | | + + + + + + | RDW | 28.2 | 10.5 % | REFERENCE | | | | | | LAB | | | | | | [facility] | | + + + + + + | MCH, POC | 24 (A) | 27 - 33 pg | REFERENCE | | | | | | LAB | | | | | | [facility] | | + + + + + + | MCHC, POC | 31 | 30 - 36 g/dL | REFERENCE | | | | | | LAB | | | | | | [facility] | | + + + + + + | Platelet | 230 | 140 - 440 K/uL | REFERENCE | | | Count | | | LAB | | | | | | [facility] | | + + + + + + | NEUTROPHILS | 71.0 | 39 - 80 % | REFERENCE | | | BL | | | LAB | | | | | | [facility] | | + + + + + + | LYMPHOCYTES | 14.2 (A) | 24 - 44 % | REFERENCE | | | BL | | | LAB | | | | | | [facility] | | + + + + + + | Monocyte % | 12.0 | 0 - 12 % | REFERENCE | | | | | | LAB | | | | | | [facility] | | + + + + + + | EOSINOPHILS | 2.4 | 0 - 6 % | REFERENCE | | | BL | | | LAB | | | | | | [facility] | | + + + + + + | Basophils % | 0.4 | 0 - 2 % | REFERENCE | | | | | | LAB | | | | | | [facility] | | + + + + + + | Neutrophils | 5.96 | 2.0 - 6.9 K/uL | REFERENCE | | | , Absolute | | | LAB | | | | | | [facility] | | + + + + + + | Absolute | 0.00 | 0.00 - 0.6 K/uL | REFERENCE | | | Lymphocytes | | | LAB | | | | | | [facility] | | + + + + + + | Absolute | 1.19 | 0.6 - 3.4 K/uL | REFERENCE | | | Monocytes | | | LAB | | | | | | [facility] | | + + + + + + | Eosinophils | 0.20 | 0.0 - 0.7 K/uL | REFERENCE | | | , Absolute | | | LAB | | | | | | [facility] | | + + + + + + | Basophils, | 0.03 | 0.0 - 0.2 K/uL | REFERENCE | | | Absolute | | | LAB | | | | | | [facility] | | + + + + + + + + | Specimen | + + | Blood | + + + + + + + | Performing | Address | City/State/Zipcode | Phone Number | | Organization | | | | + + + + + | REFERENCE LAB | [address] [facility] | [place] | [phone] | | [facility] | | [address] | | + + + + + Comprehensive Metabolic Panel (04/23/2019 2:22 PM PST) + + + + + + | Component | Value | Ref Range | Performed | Pathologist | | | | | At | Signature | + + + + + + | Na | 133 | 132 - 143 | REFERENCE | | | | | mmol/L | LAB | | | | | | [facility] | | + + + + + + | K | 4.7 | 3.6 - 5.1 | REFERENCE | | | | | mmol/L | LAB | | | | | | [facility] | | + + + + + + | Cl | 97 | 95 - 112 mmol/L | REFERENCE | | | | | | LAB | | | | | | [facility] | | + + + + + + | CO2 | 29 | 19 - 31 mmol/L | REFERENCE | | | | | | LAB | | | | | | [facility] | | + + + + + + | Anion Gap | 12 | 7 - 21 mmol/L | REFERENCE | | | | | | LAB | | | | | | [facility] | | + + + + + + | Glucose | 140 (A) | 70 - 100 mg/dL | REFERENCE | | | | | | LAB | | | | | | [facility] | | + + + + + + | BUN | 33 (A) | 6 - 23 mg/dL | REFERENCE | | | | | | LAB | | | | | | [facility] | | + + + + + + | CREATININE | 0.97 | 0.70 - 1.18 | REFERENCE | | | (PAML) | | | LAB | | | | | | [facility] | | + + + + + + | GFR | 76 | 60 ml/min | REFERENCE | | | ESTIMATE | | | LAB | | | (REF) | | | [facility] | | + + + + + + | BUN/Creatin | 34.0 (A) | 6.0 - 28.6 | REFERENCE | | | ine Ratio | | | LAB | | | | | | [facility] | | + + + + + + | Calcium | 7.8 (A) | 8.5 - 10.3 | REFERENCE | | | | | mg/dL | LAB | | | | | | [facility] | | + + + + + + | AST | 15 | 13 - 39 U/L | REFERENCE | | | | | | LAB | | | | | | [facility] | | + + + + + + | ALT | 18 | 7 - 52 U/L | REFERENCE | | | | | | LAB | | | | | | [facility] | | + + + + + + | Bilirubin | 73.0 | 31.0 - 120.0 | REFERENCE | | | Total | | mg/dL | LAB | | | | | | [facility] | | + + + + + + | Total | 6.2 | 6.0 - 8.3 g/dL | REFERENCE | | | Protein | | | LAB | | | | | | [facility] | | + + + + + + | Albumin | 2.5 (A) | 3.5 - 5.0 g/dL | REFERENCE | | | | | | LAB | | | | | | [facility] | | + + + + + + | Globulin | 3.7 (A) | 1.8 - 3.5 g/dL | REFERENCE | | | | | | LAB | | | | | | [facility] | | + + + + + + | A/G Ratio | 0.7 (A) | 1.1 - 2.4 | REFERENCE | | | | | | LAB | | | | | | [facility] | | + + + + + + + + | Specimen | + + | Blood | + + + + + + + | Performing | Address | City/State/Zipcode | Phone Number | | Organization | | | | + + + + + | REFERENCE LAB | [address] [facility] | [place] | [phone] | | [facility] | | [address] | | + + + + + [...]
--- OUTSIDE RECORDS SUMMARY | ~2019-08-08 | XMS | Encounter Summary ---
Demographics + + + | Address | [address] | | | [place] [address] | + + + | Home Phone [...] + | Jessica Shepard | ECON | [address] | | | | | [place] | | | | | [address] | | + + + + + | Bel Solis | ECON | Unknown | | + + + + + Care Team Providers + +------+ + | Care Pit Recorder Name | Role | Phone | + +------+ + | Dian Lr NP | PCP | | + +------+ + Encounter Details +--------+ + + + + | Date | Type | Department | Care Team | Description | +--------+ + + + + | 05/14/ | Hospital | [facility] [place] [place] [facility] | Conversion | Pain | | 2017 | Encounter | CONVERSION [address]P [address] | Transaction, | | | | | [address] | Provider Unknown | | | | | [place] | [phone] | | | | | [address] | | | | | | [phone] | | | +--------+ + + + [...]
--- OUTSIDE RECORDS SUMMARY | ~2019-08-08 | XMS | Encounter Summary ---
Demographics + + + | Address | [address] | | | [place] [address] | + + + | Home Phone [...] + | Jessica Shepard | ECON | [address] | | | | | [place] | | | | | [address] | | + + + + + | Bel Solis | ECON | Unknown | | + + + + + Care Team Providers + +------+ + | Care Patient Service Technician Pst Name | Role | Phone | + +------+ + | Jamar Manuel MD | PCP | | + +------+ + Reason for Visit + + + | Reason | Comments | + + + | Care Coordination | EOT?? | + + + | Other | picc d/c | + + + Encounter Details +--------+ + + + + | Date | Type | Department | Care Team | Description | +--------+ + + + + | 05/23/ | Telephone | [facility] | Nimo Westbrook, | Care Coordination | | 2020 | | INFECTIOUS DISEASE | Jute Bag Sewer | (EOT??); Other (pic | | | | [address] | | d/c) | | | | [place] | | | | | | [address] | | | | | | [phone] | | | +--------+ + + + [...]
--- OUTSIDE RECORDS SUMMARY | ~2019-08-08 | XMS | Encounter Summary ---
Demographics + + + | Address | [address] | | | [place] [address] | + + + | Home Phone | | + + + | Preferred Language | Unknown | + + + | Marital Status | | + + + | Scientology Affiliation | [id number] | + + + | Race | Unknown | + + + | Ethnic Group | Unknown | + + + Author + + + | Author | [facility] | | | and [place] | + + + | Organization | [facility] | | | and [place] | + + + | Address | Unknown | + + + | Phone | Unavailable | + + + Support + + + + + | Name | Relationship | Address | Phone | + + + + + | Jessica Shepard | ECON | [address] | | | | | [place] | | | | | [address] | | + + + + + | Bel Solis | ECON | Unknown | | + + + + + Care Team Providers + +------+ + | Care Deputy Fire Marshal Name | Role | Phone | + +------+ + | Jamar Manuel MD | PCP | | + +------+ + Encounter Details +--------+---------+ + + + | Date | Type | Department | Care Team | Description | +--------+---------+ + + + | 04/10/ | Surgery | [facility] | Aleksander Montiel, | CYSTOSCOPY | | 2019 | | [facility] | MD Nash SMITH | | | | | OPERATING ROOM [address] [place], [place] | | | | | [facility] | [address] | | | | | [place], [place] | [phone] | | | | | [address] | | | | | | [phone] | | | +--------+---------+ + + + Social History [...] other chronic comorbidities who pre sents to [facility] ER on 04/06 for shortness of breath admitted with 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 The patient was admitted to regular medical floor and started on optimal medical management . On-call hand engraver (Dr. Ruelas) recommended continued medical management. Patient [...] inferior defect with partial improvement at rest dental insurance coordinator was i nformed by hospitalist colleague recommended continued medical management without any surg ical intervention. Of note, the patient at another facility was noted to have strep bactere josh repeat blood cultures x2 demonstrate no growth to date. ID was consulted patient started on vancomycin with outpatient follow-up in ID clinic 2 weeks after discharge. On day of discharge, the patient was alert and oriented x3, tolerating p.o. diet without symp toms, clinically, hemodynamically from a laboratory perspective stable for discharge with ou tpatient follow-up. The patient is to follow-up with their primary care provider within 1 w [place] after discharge, follow-up with ID in 2 weeks after discharge, follow-up with vascular s urgery as per their recommendations or otherwise within 2 weeks after discharge. The patien t will need to follow-up with his outpatient hand engraver within 1 to 2 weeks after discharg [...] Results Results Reviewed. Discharge Information: Follow up: [facility] [address] [facility] [address] Bhanu Seaman PA-C [address] [place] [facility] [address] In 2 weeks Jamar Manuel MD [address] [place] [address] Schedule an appointment as soon as possible for a visit in 1 week Hero Gaston MD [address] [facility] [address] Schedule an appointment as soon as possible for a visit in 2 weeks Post hospital discharge follow-up Dr. New Ruelas [address] [facility] [address] [facility] [address] Schedule an appointment as soon as possible [...] mg per tablet aka: NORCO . Disposition: chcf Condition: Stable Code Status: Full Code Discharge [...] numbness Complications from anesthesia Date Last Reviewed: 08/20/201519994907-[address] [employer] [place] [address]. All righ ts reserved. This information is [...] Wakefield PA-C - 04/21/2019 8:21 AM PST [facility] Service: Vascular Surgery Progress Note SUBJECTIVE Patient Summary: 74 y.o. man with complex medical issues and LE ischemic ulcers, he wa s recently admitted to the [facility] from 03/28/19 to 04/04/19 where he was treated/ diagnosed with systolic heart failure, type 2 MN/NSTEMI, SHAE, ARF. O2 desaturation brought him from SNF to [facility] and current admission today with CHF and [...] Full code Bhanu Seaman PA-C Vascular Surgery oRegla mixon RN - 04/21/2019 6:20 AM PSTHydrocodone x 1 given PRN pain. WENDY right groin to bulb suction, o utput of 35, WENDY drain to bulb suction Rt lower leg output of 25. Miller catheter to gravity. Hourly rounding uneventful End of shift chart check complete ari, Vladimir Khan RN - 04/20/2019 6:10 PM PSTA/O, VSS, turning/repositioning freq uently, makes needs known, IV abx, PICC RUE, d/c tomorrow Chart check complete Electronically signed by: Vladimir Chapin RN 04/20/2019 6:11 PM Hannah Holliday RN - 04/20/2019 4:40 PM PST [facility] Service: Wound Care Follow Up Note [...] Presence Of Pain denies pain/discomfort Wound 11/19/17 172 Diabetic Ulcer Left lateral foot ulceration, arterial Placement Date/Time: 11/19/17 172 Primary Wound Type: Diabetic Ulcer Side: Left [place] ation: lateral Location: foot Wound Subtype: ulceration, [...] M D - 04/20/2019 2:16 PM PST [facility] Service: Hospitalist Progress Note Pt: Reagan [...] hematuria. Recent history notable for admit to [facility] from 03/28/19 to 04/04/2019 for CHF exacerbation with eventual dischar ge to [facility]. He then re-presented to same hospital [...] Last labs from current encounter as of 04/20/19-14:16 IMAGING: Reviewed in [facility], no new results. PROBLEM LIST [...] Received 8 days of IV antibiotics at [facility] discharged home on with augmentin, now readmitted on 04/06 at [facility] and started on rocephin after sending 2 [...] SQH Code status: Full Dispo: back to [facility] pending recovery from vascular bypass surgery (okay to go fr om vascular surgery perspective), final ID recs, tentatively planning for ~04/21 Grover Charles MD 2:16 PM 04/20/2019 Portions of this chart may have been copied from previous notes for continuity of care purp ose Sunshine Chen R PH - 04/20/2019 1:53 PM PST [...] 1750 mg Q2 4H. Plan for level: 04/23 @1300 Pharmacy will continue to follow and make adjustments to vancomycin therapy as indicated. Thank You, Sunshine Love, PharmD, [facility] 04/20/19 1:52 PM Nandini Sánchez se, MD - 04/20/2019 8:56 AM PST [facility] Service: Infectious Diseases Progress Note Hospital [...] Component Value Units Date/Time Culture, Wound, Superficial [[id number]] (Abnormal) (Susceptibility) Collected: 04/06/191545 Order Status: Completed Lab Status: Final result Updated: 04/11/19727 Specimen: Body Fluid from Heel, Right Special Requests LT FOOT Special Requests Testing performed at [facility];[address] [place] [address] RESULT -- 1+ ENTEROCOCCUS FAECALIS Aminoglycosides (except [...] Sensitive SUSCEPTIBLE JESSICA Final Testing performed at [facility], [address] [place] [address] Culture, Wound, Superficial [[id number]] Collected: 04/06/191545 Order Status: Completed Lab Status: Final result Updated: 04/08/1937 Specimen: Body Fluid from Heel, Right Special Requests RIGHT FOOT Special Requests Testing performed at [facility];[address] [place] [address] RESULT -- 1+ NORMAL SKIN CELSA ISOLATED RESULT NO FURTHER WORKUP RESULT Testing performed at [facility], [address] [place] [address] Comment: Testing performed at [facility], [address] [place] [address] Microbiology Results (72 hrs) No results found [...] assisting with dosing and monitorization. Discussed with manager case regarding OPAT. Discussed with manager case regarding discharge planning. Dr. Dolan will take over ID service tomorrow. Please call if questions. Hero Richardson MD, MPH Infectious Diseases 04/20/19 Sheila Gage RN - 04/19/2019 7:20 PM PSTEnd of shift chart check complete. Sheila Cabrera RN Sunshine Chen, [facility] - 04/19/2019 3:23 PM PSTFormatting of this [...] Shaver MD - 04/19/2019 2:46 PM PST [facility] Service: Hospitalist Progress Note Pt: Reagan [...] hematuria. Recent history notable for admit to [facility] from 03/28/19 to 04/04/2019 for CHF exacerbation with eventual dischar ge to [facility]. He then re-presented to same hospital [...] Received 8 days of IV antibiotics at [facility] discharged home on with augmentin, now readmitted on 04/06 at [facility] and started on rocephin after sending 2 [...] SQH Code status: Full Dispo: back to [facility] pending recovery from vascular bypass surgery, final ID recs , tentatively planning for ~04/21 Grover Charles MD 2:46 PM 04/19/2019 Portions of this chart may have been copied from previous notes for continuity of care purp ose Hero Sánchez MD - 04/19/2019 9:53 AM PSTFormatting of this note might be different from the ramiro ragsdale. [facility] Service: Infectious Diseases Progress Note Hospital [...] Component Value Units Date/Time Culture, Wound, Superficial [[id number]] (Abnormal) (Susceptibility) Collected: 04/06/19 1546 Order Status: Completed Lab Status: Final result Updated: 04/11/1928 Specimen: Body Fluid from Heel, Right Special Requests LT FOOT Special Requests Testing performed at [facility];[address] [place] [address];[place] [address] RESULT -- 1+ ENTEROCOCCUS FAECALIS Aminoglycosides (except [...] Sensitive SUSCEPTIBLE JESSICA Final Testing performed at [facility], [address] [place] [address] Culture, Wound, Superficial [[id number]] Collected: 04/06/19 1546 Order Status: Completed Lab Status: Final result Updated: 04/08/1937 Specimen: Body Fluid from Heel, Right Special Requests RIGHT FOOT Special Requests Testing performed at [facility];[address] [place] [address] RESULT -- 1+ NORMAL SKIN CELSA ISOLATED RESULT NO FURTHER WORKUP RESULT Testing performed at [facility], [address] [place] [address] Comment: Testing performed at [facility], [address] [place] [address] Culture, Blood [[id number]] Collected: 04/06/19 0338 Order Status: Completed Lab Status: Final result Updated: 04/12/1952 Specimen: Peripheral Blood Special Requests R WRIST Special Requests Testing performed at [facility];[address] [place] [address] RESULT NO GROWTH 6 DAYS RESULT Testing performed at [facility], [address] [place] [address] Comment: Testing performed at [facility], [address] [place] [address] Culture, Blood [[id number]] Collected: 04/06/19 0331 Order Status: Completed Lab Status: Final result Updated: 04/12/1952 Specimen: Peripheral Blood Special Requests L WRIST Special Requests Testing performed at [facility];[address] [place] [address] RESULT NO GROWTH 6 DAYS RESULT Testing performed at [facility], [address] [place] [address] Comment: Testing performed at [facility], [address] [place] [address] Microbiology Results (72 hrs) No results found [...] Hero Richardson MD, MPH Infectious Diseases 04/19/19 Yoel Wakefield PA-C - 04/19/2019 9:21 AM PSTFormatting of this note might be different from the o sheryl. [facility] Service: Vascular Surgery Progress Note SUBJECTIVE Patient Summary: 74 y.o. man with complex medical issues and LE ischemic ulcers, he wa s recently admitted to the [facility] from 03/28/19 to 04/04/19 where he was treated/ diagnosed with systolic heart failure, type 2 MN/NSTEMI, SHAE, ARF. O2 desaturation brought him from SNF to [facility] and current admission today with CHF and [...] Full code Bhanu Seaman PA-C Vascular Surgery Rachel Patino RN - 04/19/2019 5:46 AM [id number] left foot dressing change complete per order. Patient R groi n site with WENDY intact old drainage marked and unchanged patient reported burning pain BLE st ayed warm and pulses dopplered. Patient on 2L NC. Miller in place. Chart check complete. Leeanne Arias RN unlVladimir herrmann RN - 04/18/2019 6:40 PM PSTDrowsy at [...] Grover Shaver MD - 4:52 PM PST [facility] Service: Hospitalist Progress Note Pt: Reagan Shepard AGE/SEX: 74 y.o. male ROOM: [facility] OR INTRA OP POOL/[facility]* : 1945 PCP: Jamar Manuel MD ADMIT DATE: 04/06/2019 TODAY'S DATE: 04/18/2019 Hospital Day/Hospital Course: LOS: 12 days Mr. Shepard is a 74-year-old gentleman with a history of bilateral nonhealing diabetic trisha t ulcers, and history of TBI, stroke, insulin dependent DM, who presents with CHF exacerbati on with hospital course complicated by gross hematuria. Recent history notable for admit to [facility] from 03/28/19 to 04/04/2019 for CHF exacerbation with eventual dischar ge to [facility]. He then re-presented to same hospital due to worsening SOB and again found to have CHF exacerbation though this time with elevated troponin to 0.17. Dr. Jessenia khan as called and accepted the patient in [...] denies c hest pain, dyspnea. Scheduled Medications: [MAR Hold] amLODIPine 5 mg Oral Daily [MAR Hold] aspirin 81 mg Oral Daily [MAY Hold] atorvaSTATin 10 mg Oral Nightly [MAY Hold] cadexomer iodine Topical Every Other Day [MAY Hold] carvedilol 6.25 mg Oral BID WC [May] clopidogrel 75 mg Oral Daily [MAY Hold] diclofenac 4 g Topical 4x Daily [MAY Hold] DULoxetine 60 mg Oral Daily [MAY Hold] dutasteride 0.5 mg Oral Daily [MAY Hold] gabapentin 300 mg Oral TID [MAY Hold] heparin 5,000 Units Subcutaneous 2 times per day [MAY Hold] insulin glargine 30 Units Subcutaneous QAM insulin lispro 0-18 Units Subcutaneous TID WC [MAY Hold] lidocaine 1 patch Transdermal Daily [MAY Hold] losartan 50 mg Oral Daily [May] magnesium oxide 400 mg Oral Daily piperacillin-tazobactam 3.375 g Intravenous Once [MAY Hold] piperacillin-tazobactam 3.375 g Intravenous Q8H [MAY Hold] 27-0.8 mg multivitamin 1 tablet Oral Daily [May] psyllium 1 packet Oral TID [MAY Hold] tamsulosin 0.4 mg Oral BID [MAY Hold] torsemide 20 mg Oral Daily [MAY Hold] vancomycin 1,750 mg Intravenous Q24H [MAY Hold] vancomycin per pharmacy Other Pharmacy Consult Continuous Infusions [May] dextrose 10% electrolyte-A 20 mL/hr at 04/18/19 1520 phenylephrine PRN Medications [MAY Hold] acetaminophen, [MAY Hold] albuterol, albuterol, Hypoglycemia Management AND POCT Glucose AND [May] dextrose AND [May] dextrose 10%, dextrose, [May d] fentaNYL (PF), fentaNYL (PF), hydrALAZINE, [MAY Hold] HYDROcodone-acetaminophen, HYDROmor phone, [MAY Hold] lactulose, [MAY Hold] menthol throat lozenges, metoclopramide OR metoc lopramide, [...] the last 72 hours. IMAGING: Reviewed in [facility], no new results. PROBLEM LIST [...] Received 8 days of IV antibiotics at [facility] discharged home on with augmentin, now readmitted on 04/06 at [facility] and started on rocephin after sending 2 [...] SQH Code status: Full Dispo: back to [facility] pending cardiac evaluation/optimization, vascular bypass donna [...] as indicated. Thank You, Sunshine Love, PharmD, [facility] 04/18/19 2:45 PM Syed López PTA - [...] might be different from t kevin original. [facility] Service: Infectious Diseases Progress Note Hospital [...] Component Value Units Date/Time Culture, Wound, Superficial [[id number]] (Abnormal) (Susceptibility) Collected: 04/06/19 1546 Order Status: Completed Lab Status: Final result Updated: 04/11/19 0728 Specimen: Body Fluid from Heel, Right Special Requests LT FOOT Special Requests Testing performed at [facility];[address] [place] [address];[place] [address] RESULT -- 1+ ENTEROCOCCUS FAECALIS Aminoglycosides (except [...] Sensitive SUSCEPTIBLE JESSICA Final Testing performed at [facility], [address] [place] [address] Culture, Wound, Superficial [[id number]] Collected: 04/06/19 1546 Order Status: Completed Lab Status: Final result Updated: 04/08/1937 Specimen: Body Fluid from Heel, Right Special Requests RIGHT FOOT Special Requests Testing performed at [facility];[address] [place] [address] RESULT -- 1+ NORMAL SKIN CELSA ISOLATED RESULT NO FURTHER WORKUP RESULT Testing performed at [facility], [address] [place] [address] Comment: Testing performed at [facility], [address] [place] [address] Culture, Blood [[id number]] Collected: 04/06/198 Order Status: Completed Lab Status: Final result Updated: 04/12/1952 Specimen: Peripheral Blood Special Requests R WRIST Special Requests Testing performed at [facility];[address] [place] [address] RESULT NO GROWTH 6 DAYS RESULT Testing performed at [facility], [address] [place] [address] Comment: Testing performed at [facility], [address] [place] [address] Culture, Blood [[id number]] Collected: 04/06/19330 Order Status: Completed Lab Status: Final result Updated: 04/12/1952 Specimen: Peripheral Blood Special Requests L WRIST Special Requests Testing performed at [facility];[address] [place] [address] RESULT NO GROWTH 6 DAYS RESULT Testing performed at [facility], [address] [place] [address] Comment: Testing performed at [facility], [address] [place] [address] Microbiology Results (72 hrs) No results found [...] might be different from the o riginal. [facility] Service: Vascular Surgery Progress Note SUBJECTIVE Patient Summary: 74 y.o. man with complex medical issues and LE ischemic ulcers, he wa s recently admitted to the [facility] from 03/28/19 to 04/04/19 where he was treated/ diagnosed with systolic heart failure, type 2 MN/NSTEMI, SHAE, ARF. O2 desaturation brought him from SNF to [facility] and current admission today with CHF and [...] for right leg bypa ss surgery on today. Cryominnain is in house and ready for surgery today. Appreciate cardiology recommendations. Risks of surgery include bleeding, infection, nerve damage, limb loss, rcistofer cardial infarction, and . He understands and [...] End of shift chart check review Sunshine Chen [facility] - 04/17/2019 1:38 PM PST Vancomycin Dosing [...] as indicated. Thank You, Sunshine Love, PharmD, [facility] 04/17/19 1:38 PM Grover Shaver MD - 04/17/2019 12:25 PM PST [facility] Service: Hospitalist Progress Note Pt: Reagan Shepard AGE/SEX: 74 y.o. male ROOM: [address] [place] [address] : 1945 PCP: Jamar Manuel MD ADMIT DATE: 04/06/2019 TODAY'S DATE: 04/17/2019 Hospital Day/Hospital Course: LOS: 11 days Mr. Shepard is a 74-year-old gentleman with a history of bilateral nonhealing diabetic trisha t ulcers, and history of TBI, stroke, insulin dependent DM, who presents with CHF exacerbati on with hospital course complicated by gross hematuria. Recent history notable for admit to [facility] from 03/28/19 to 04/04/2019 for CHF exacerbation with eventual dischar ge to [facility]. He then re-presented to same hospital [...] the last 72 hours. IMAGING: Reviewed in [facility], no new results. PROBLEM LIST [...] Received 8 days of IV antibiotics at [facility] discharged home on with augmentin, now readmitted on 04/06 at [facility] and started on rocephin after sending 2 [...] SQH Code status: Full Dispo: back to [facility] pending cardiac evaluation/optimization, vascular bypass donna wero, final ID recs, tentatively planning for ~04/21 Grover Charles MD 12:25 PM 04/17/2019 Portions of this chart may have been copied from previous notes for continuity of care purp ose Rico Modi MD - 11:19 AM PST [facility] Service: Cardiology/[facility] Interventional cardiology note RE: Reagan [...] with a low MCV. For risk stratification mariaelena allen had Lexiscan Myoview test which I reviewed [...] minimal reversib ility 2. Recent non-Q wave MN 3. Severe peripheral vascular disease 4. Diabetes [...] this note might be different from the origi nal. [facility] Service: Infectious Diseases Progress Note Hospital [...] Component Value Units Date/Time Culture, Wound, Superficial [[id number]] (Abnormal) (Susceptibility) Collected: 04/06/19 1546 Order Status: Completed Lab Status: Final result Updated: 04/11/19 0728 Specimen: Body Fluid from Heel, Right Special Requests LT FOOT Special Requests Testing performed at [facility];[address] [place] [address];[place] [address] RESULT -- 1+ ENTEROCOCCUS FAECALIS Aminoglycosides (except [...] Sensitive SUSCEPTIBLE JESSICA Final Testing performed at [facility], [address] [place] [address] Culture, Wound, Superficial [[id number]] Collected: 04/06/19 1546 Order Status: Completed Lab Status: Final result Updated: 04/08/19 0937 Specimen: Body Fluid from Heel, Right Special Requests RIGHT FOOT Special Requests Testing performed at [facility];[address] [place] [address] RESULT -- 1+ NORMAL SKIN CELSA ISOLATED RESULT NO FURTHER WORKUP RESULT Testing performed at [facility], [address] [place] [address] Comment: Testing performed at [facility], [address] [place] [address] Culture, Blood [[id number]] Collected: 04/06/19 0338 Order Status: Completed Lab Status: Final result Updated: 04/12/19 0652 Specimen: Peripheral Blood Special Requests R WRIST Special Requests Testing performed at [facility];[address] [place] [address] RESULT NO GROWTH 6 DAYS RESULT Testing performed at [facility], [address] [place] [address] Comment: Testing performed at [facility], [address] [place] [address] Culture, Blood [[id number]] Collected: 04/06/19 0331 Order Status: Completed Lab Status: Final result Updated: 04/12/19 0652 Specimen: Peripheral Blood Special Requests L WRIST Special Requests Testing performed at [facility];[address] [place] [address] RESULT NO GROWTH 6 DAYS RESULT Testing performed at [facility], [address] [place] [address] Comment: Testing performed at [facility], [address] [place] [address] Microbiology Results (72 hrs) No results found [...] might be different from the o sheryl. [facility] Service: Vascular Surgery Progress Note SUBJECTIVE Patient Summary: 74 y.o. man with complex medical issues and LE ischemic ulcers, he wa s recently admitted to the [facility] from 03/28/19 to 04/04/19 where he was treated/ diagnosed with systolic heart failure, type 2 MN/NSTEMI, SHAE, ARF. O2 desaturation brought him from SNF to [facility] and current admission today with CHF and [...] to bilateral feet, dressings on and dr y. Dopplerable DP bilaterally. Right heel ulcer. Left [...] Min: 92 % Max: 96 % 04/15 0701 - 04/16 1899 In: 2672 [P.O.:450; I.V.:1622] Out: - Body [...] Sánchez MD - 04/16/2019 6:49 PM PST [facility] Service: Infectious Diseases Progress Note Hospital [...] Component Value Units Date/Time Culture, Wound, Superficial [[id number]] (Abnormal) (Susceptibility) Collected: 04/06/19 1546 Order Status: Completed Lab Status: Final result Updated: 04/11/19 5341 Specimen: Body Fluid from Heel, Right Special Requests LT FOOT Special Requests Testing performed at [facility];[address] [place] [address] 42826 RESULT -- 1+ ENTEROCOCCUS FAECALIS Aminoglycosides (except [...] Sensitive SUSCEPTIBLE JESSICA Final Testing performed at [facility], [address] [place] [address]13 Culture, Wound, Superficial [[id number]] Collected: 04/06/19 1546 Order Status: Completed Lab Status: Final result Updated: 04/08/19 0937 Specimen: Body Fluid from Heel, Right Special Requests RIGHT FOOT Special Requests Testing performed at [facility];[address] [place] [address] 48389 RESULT -- 1+ NORMAL SKIN CELSA ISOLATED RESULT NO FURTHER WORKUP RESULT Testing performed at [facility], [address] [place] [address] Comment: Testing performed at [facility], [address] [place] [address] 23546 Culture, Blood [[id number]] Collected: 04/06/19 0338 Order Status: Completed Lab Status: Final result Updated: 04/12/19 0652 Specimen: Peripheral Blood Special Requests R WRIST Special Requests Testing performed at [facility];[address] [place] [address] 88604 RESULT NO GROWTH 6 DAYS RESULT Testing performed at [facility], [address] [place] [address] Comment: Testing performed at [facility], [address] [place] [address], [place] [address] Culture, Blood [[id number]] Collected: 04/06/19 0331 Order Status: Completed Lab Status: Final result Updated: 04/12/1952 Specimen: Peripheral Blood Special Requests L WRIST Special Requests Testing performed at [facility];[address] [place] [address];[place] [address] RESULT NO GROWTH 6 DAYS RESULT Testing performed at [facility], [address] [facility], [place] [address] Comment: Testing performed at [facility], [address] [place] [address], [place] [address] Microbiology Results (72 hrs) No results found [...] Hero Richardson MD, MPH Infectious Diseases 04/16/19 Crista Kaufman RN - 04/16/2019 5:19 PM PSTPt vitals stable. . No changes in peripheral pulses. Pt n ot requiring oxygen. Pt denies chest pain and feeling short of breath. Needs and concerns a ddressed with pt. End of shift audit complete. Crista Sutherland RN rover Charles MD - 04/16/2019 5:02 PM PSTFormatti ng of this note might be different from the original. [facility] Service: Hospitalist Progress Note Pt: Reagan Shepard AGE/SEX: 74 y.o. male ROOM: [address] [place] [address] : 1945 PCP: Jamar Manuel MD ADMIT DATE: 04/06/2019 TODAY'S DATE: 04/16/2019 Hospital Day/Hospital Course: LOS: 10 days Mr. Shepard is a 74-year-old gentleman with a history of bilateral nonhealing diabetic trisha t ulcers, and history of TBI, stroke, insulin dependent DM, who presents with CHF exacerbati on with hospital course complicated by gross hematuria. Recent history notable for admit to [facility] from 03/28/19 to 04/04/2019 for CHF exacerbation with eventual dischar ge to [facility]. He then re-presented to same hospital [...] Received 8 days of IV antibiotics at [facility] discharged home on with augmentin, now readmitted on 04/06 at [facility] and started on rocephin after sending 2 [...] SQH Code status: Full Dispo: back to [facility] pending cardiac evaluation/optimization, vascular bypass donna wero, final ID recs, likely 4-5 more days in hospital Grover Charles MD 5:02 PM 04/16/2019 Portions of this chart may have been copied from previous notes for continuity of care purp ose Concetta Jung RD - 04/16/2019 3:20 PM PST NUTRITION NOTE Summary Low risk follow up. Pt reports he passed his stress test today. Fluid/Beverage Intake Oral Fluids Amount: Clear liquids ad bryant. Food Intake Amount of Food: Pt reports he has been eating well, 3 meals per day and he is hungry. RN or scott pt a clear liquid tray. Per pt [...] Rodrigez RD 04/16/2019 3:21 PM Sunshine Chen, [facility] - 04/16/2019 12:18 PM PST Vancomycin Dosing [...] RN to ask why 1330 vancomycin l cucoel had not been drawn. Per RN, patient [...] Patient encouraged to discuss medication changes with hand engraver ragini stanley to stopping medications or making any changes. Patient's questions answered. Heart Fail ure Hot Line number provided to patient. Face to face time was spent with patient providing counseling and education for congestive heart failure. Bhanu Wakefield P A-C - 04/16/2019 8:43 AM PST [facility] Service: Vascular Surgery Progress Note SUBJECTIVE Patient Summary: 74 y.o. man with complex medical issues and LE ischemic ulcers, he wa s recently admitted to the [facility] from 03/28/19 to 04/04/19 where he was treated/ diagnosed with systolic heart failure, type 2 MN/NSTEMI, SHAE, ARF. O2 desaturation brought him from SNF to [facility] and current admission today with CHF and [...] Full code Bhanu Seaman PA-C Vascular Surgery rCrista villa RN - 04/15/2019 7:21 PM PSTPt vitals [...] MD - 04/15/2019 1 2:48 PM PST [facility] Service: Hospitalist Progress Note Pt: Reagan Shepard AGE/SEX: 74 y.o. male ROOM: [facility]/4452- : 1945 PCP: Jamar Manuel MD ADMIT DATE: 04/06/2019 TODAY'S DATE: 04/15/2019 Hospital Day/Hospital Course: LOS: 9 days Mr. Shepard is a 74-year-old gentleman with a history of bilateral nonhealing diabetic trisha t ulcers, and history of TBI, stroke, insulin dependent DM, who presents with CHF exacerbati on with hospital course complicated by gross hematuria. Recent history notable for admit to [facility] from 03/28/19 to 04/04/2019 for CHF exacerbation with eventual dischar ge to [facility]. He then re-presented to same hospital [...] 04/14/19 0629 BNP 587.58* IMAGING: Reviewed in [facility], no new results. PROBLEM LIST [...] risk stratification . -cardiology consulted -NPO at [place] for nuc med stress test in morning [...] Received 8 days of IV antibiotics at [facility] discharged home on with augmentin, now readmitted on 04/06 at [facility] and started on rocephin after sending 2 [...] SQH Code status: Full Dispo: back to [facility] pending cardiac evaluation/optimization, vascular bypass donna wero, final ID recs, likely 4-5 more days in hospital Grover Charles MD 12:48 PM 04/15/2019 Portions of this chart may have been copied from previous notes for continuity of care purp ose roctor, Sheila Brown [facility] - 04/15/2019 10:55 AM PST Vancomycin Dosing [...] as indicated. Thank You, Sheila Ahuja, PharmD, BCPS 04/15/2019, 10:41 AM Simba Fenton MD - 04/15/2019 8:48 AM PSTDiscussion held with patient about needing a bypass for right lower extremity due to critical limb ischemia. Patient agreeable to surgery. Will need cardiac clearance prior to surgery. Cryovein has been ordered for surgery. Surgery planned for Tue. Please feel free to call with any questions or concerns. Simba Cheng MD upper, Debby Conrad RN - 04/14/2019 6:38 PM PSTPt had dual lumen PICC placed today. Miller was removed, 1175 o utput for shift. Pt due to void by 2300. Pt refused to get out of bed into the chair today a nd refused some of his turns. Wound care completed this afternoon, medicated x1 for pain. No other shift events. Chart check complete. Debby Borjas RN Chelsea Gaston, Hero Malave MD - 04/14/2019 3:10 PM PSTFormatting of this note might be differ ent from the original. [facility] Service: Infectious Diseases Progress Note Hospital [...] Component Value Units Date/Time Culture, Wound, Superficial [[id number]] (Abnormal) (Susceptibility) Collected: 04/06/19 1546 Order Status: Completed Lab Status: Final result Updated: 04/11/19 0728 Specimen: Body Fluid from Heel, Right Special Requests LT FOOT Special Requests Testing performed at [facility];[address] [place] [address] 25030 RESULT -- 1+ ENTEROCOCCUS FAECALIS Aminoglycosides (except [...] Sensitive SUSCEPTIBLE JESSICA Final Testing performed at [facility], [address] [place] [address]397 Culture, Wound, Superficial [[id number]] Collected: 04/06/19 1546 Order Status: Completed Lab Status: Final result Updated: 04/08/19 0937 Specimen: Body Fluid from Heel, Right Special Requests RIGHT FOOT Special Requests Testing performed at [facility];[address] [place] [address] 45314 RESULT -- 1+ NORMAL SKIN CELSA ISOLATED RESULT NO FURTHER WORKUP RESULT Testing performed at [facility], [address] [place] [address] Comment: Testing performed at [facility], [address] [place] [address]999 Culture, Blood [[id number]] Collected: 04/06/19 0338 Order Status: Completed Lab Status: Final result Updated: 04/12/1952 Specimen: Peripheral Blood Special Requests R WRIST Special Requests Testing performed at [facility];[address] [place] [address] 80284 RESULT NO GROWTH 6 DAYS RESULT Testing performed at [facility], [address] [place] [address] Comment: Testing performed at [facility], [address] [place] [address] 56433 Culture, Blood [[id number]] Collected: 04/06/19 0331 Order Status: Completed Lab Status: Final result Updated: 04/12/1952 Specimen: Peripheral Blood Special Requests L WRIST Special Requests Testing performed at [facility];[address] [place] [address] 22545 RESULT NO GROWTH 6 DAYS RESULT Testing performed at [facility], [facility] [place] [address] Comment: Testing performed at [facility], [address] [place] [address] 10254 Microbiology Results (72 hrs) No results found [...] Hero Richardson MD, MPH Infectious Diseases 04/14/19 lliadri, Kady Ferrell RN - 04/14/2019 2:11 PM PSTWhile assessing pt pre PICC insertion pt reports having history of DVT in Rt arm in the 70s. He is noted to have Lt arm hemiparesis from previous [facility]. Discussed this with Dr Charles and he is in agreement with double lumen PICC insertion in Rt arm. ik, Kady Ferrell RN - 04/14/2019 1:[address] Richardson who is in agreement with double lumen PI CC insertion. achary Charles MD - 04/14/2019 1:29 PM PSTFormatting of [...] hematuria. Recent history notable for admit to [facility] from 03/28/19 to 04/04/2019 for CHF exacerbation with eventual dischar ge to [facility]. He then re-presented to same hospital [...] 04/14/19 0629 BNP 587.58* IMAGING: Reviewed in [facility], no new results. PROBLEM LIST [...] Received 8 days of IV antibiotics at [facility] discharged home on with augmentin, now readmitted on 04/06 at [facility] and started on rocephin after sending 2 [...] date with age appropriate cancer screening PPx: [facility] Code status: Full Dispo: back to [facility] pending improvement in gross hematuria, CHF exacerbation, re peat angiogram, final ID recs, likely 4-5 more days in hospital Grover Charles MD 1:29 PM 04/14/2019 Portions of this chart may have been copied from previous notes for continuity of care purp ose Lyric Molina RN - 04/14/2019 1:27 PM PST [facility] Service: Wound Care Follow Up Note [...] any additional questions. Lyric Mclain RN, CMSRN, [facility] Inpatient Wound Ostomy Care [phone] 04/14/2019 1:29 PM Dheeraj Barraza, PT - [...] Vandana Peterson RN - 04/14/2019 7:47 AM PSTLeumair groin site soft pulse continue to be [...] ekg so far vs stable.Vandana Luciano RN obrandi, Meghan Wolff, [facility] - 04/14/2019 6:31 AM PST Vancomycin Dosing [...] indicated. Thank You, Meghan Calvillo, Pharm D, [facility] 04/14/2019, 6:19 AM Vancomycin Dosing History Date [...] Shaver MD - 04/13/2019 4:02 PM PST [facility] Service: Hospitalist Progress Note Pt: Reagan Shepard AGE/SEX: 74 y.o. male ROOM: [address] [place] [address] : 1945 PCP: Jamar Manuel MD ADMIT DATE: 04/06/2019 TODAY'S DATE: 04/13/2019 Hospital Day/Hospital Course: LOS: 7 days Mr. Shepard is a 74-year-old gentleman with a history of bilateral nonhealing diabetic trisha t ulcers, and history of TBI, stroke, insulin dependent DM, who presents with CHF exacerbati on with hospital course complicated by gross hematuria. Recent history notable for admit to [facility] from 03/28/19 to 04/04/2019 for CHF exacerbation with eventual dischar ge to [facility]. He then re-presented to same hospital [...] Received 8 days of IV antibiotics at [facility] discharged home on with augmentin, now readmitted on 04/06 at [facility] and started on rocephin after sending 2 [...] CBI, now resolved. Patient underwent cystoscopy wi evacuation of bladder clots and placement of [...] date with age appropriate cancer screening PPx: [facility] Code status: Full Dispo: back to [facility] pending improvement in gross hematuria, CHF exacerbation, re peat angiogram, final ID recs, likely 4-5 more days in hospital Grover Charles MD 4:02 PM 04/13/2019 Portions of this chart may have been copied from previous notes for continuity of care purp ose unshine Love R PH - 04/13/2019 3:20 PM PST Vancomycin Dosing Per Pharmacy Subjective/Objective Reagan Shepard is a 74 y.o. 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 Additional antimicrobials: zosyn Quadriplegic/Paraplegic: no Diabetes: yes Baseline Serum Creatinine: 0.6 mg/dL Actual weight: 113.3 kg Adjusted body weight: 89.1 kg [place] body weight: 73 kg Current Vital Signs: [...] [facility] Drawing a level once the patient returns will not provide an accurate assessment of Q12H dosing regimen. The patient's renal function remains stable, so I will order a mainten ance dose of 1250 mg Q12H with the first dose to be given now and check a level tomorrow gokul bakerg. Culture monitoring: Will monitor culture(s) for growth, identification, and sensitivities. Plan for level: 04/14 @0300 Pharmacy will continue to follow and make adjustments to vancomycin therapy as indicated. Thank You, Sunshine Love, PharmD, [facility] 04/13/19 3:20 PM Nandini Sánchez se, MD - 04/13/2019 10:54 AM PST [facility] Service: Infectious Diseases Progress Note Hospital [...] Component Value Units Date/Time Culture, Wound, Superficial [[id number]] (Abnormal) (Susceptibility) Collected: 04/06/19 1546 Order Status: Completed Lab Status: Final result Updated: 04/11/19 0728 Specimen: Body Fluid from Heel, Right Special Requests LT FOOT Special Requests Testing performed at [facility];[address] [place] [address];[place] [address] RESULT -- 1+ ENTEROCOCCUS FAECALIS Aminoglycosides (except [...] Sensitive SUSCEPTIBLE JESSICA Final Testing performed at [facility], [address] [place] [address] 95902 Culture, Wound, Superficial [[id number]] Collected: 04/06/19 1546 Order Status: Completed Lab Status: Final result Updated: 04/08/1937 Specimen: Body Fluid from Heel, Right Special Requests RIGHT FOOT Special Requests Testing performed at [facility];[address] [place] [address] 54585 RESULT -- 1+ NORMAL SKIN CELSA ISOLATED RESULT NO FURTHER WORKUP RESULT Testing performed at [facility], [address] [place] [address] Comment: Testing performed at [facility], [address] [place] [address] 68892 Culture, Blood [[id number]] Collected: 04/06/198 Order Status: Completed Lab Status: Final result Updated: 04/12/1952 Specimen: Peripheral Blood Special Requests R WRIST Special Requests Testing performed at [facility];[address] [place] [address] 81768 RESULT NO GROWTH 6 DAYS RESULT Testing performed at [facility], [address] [place] [address] Comment: Testing performed at [facility], [address] [place] [address] 23970 Culture, Blood [[id number]] Collected: 04/06/19330 Order Status: Completed Lab Status: Final result Updated: 04/12/1952 Specimen: Peripheral Blood Special Requests L WRIST Special Requests Testing performed at [facility];[address] [place] [address] 51683 RESULT NO GROWTH 6 DAYS RESULT Testing performed at [facility], [address] [place] [address] Comment: Testing performed at [facility], [address] [place] [address] 68757 Microbiology Results (72 hrs) No results found [...] Hero Richardson MD, MPH Infectious Diseases 04/13/19 Yoel Wakefield PA-C - 04/13/2019 7:47 AM PSTFormatting of this note might be different from the o sheryl. [facility] Service: Vascular Surgery Progress Note SUBJECTIVE Patient Summary: 74 y.o. man with complex medical issues and LE ischemic ulcers, he wa s recently admitted to the [facility] from 03/28/19 to 04/04/19 where he was treated/ diagnosed with systolic heart failure, type 2 MN/NSTEMI, SHAE, ARF. O2 desaturation brought him from SNF to [facility] and current admission today with CHF and [...] to bilateral feet, dressings on and dr y. Dopplerable DP bilaterally. Right heel ulcer. Left [...] risks. Signed consent obtained. Will proceed to [facility] today for right leg angiogram. Moderate Sedation [...] might be different from the o riginal. [facility] Service: Infectious Diseases Progress Note Hospital Day: LOS: 6 days Post-Op Day: 2 Days Post-Op CC: Follow up on osteomyelitis. SUBJECTIVE/OVERNIGHT EVENTS Continues on iv antibiotic therapy. Denies new concerns and denies side effects. Tolerating antibiotics well. No acute events over the last 24 hours. Intake/Output Summary (Last 24 hours) at 04/12/2019 1915 Last data filed at 04/12/2019 1600 Gross [...] Component Value Units Date/Time Culture, Wound, Superficial [[id number]] (Abnormal) (Susceptibility) Collected: 04/06/19 1546 Order Status: Completed Lab Status: Final result Updated: 04/11/19 0728 Specimen: Body Fluid from Heel, Right Special Requests LT FOOT Special Requests Testing performed at [facility];[address] [place] [address];[place] [address] RESULT -- 1+ ENTEROCOCCUS FAECALIS Aminoglycosides (except [...] Sensitive SUSCEPTIBLE JESSICA Final Testing performed at [facility], [address] [place] [address] 00698 Culture, Wound, Superficial [[id number]] Collected: 04/06/19 1546 Order Status: Completed Lab Status: Final result Updated: 04/08/19 0937 Specimen: Body Fluid from Heel, Right Special Requests RIGHT FOOT Special Requests Testing performed at [facility];[address] [place] [address]341 RESULT -- 1+ NORMAL SKIN CELSA ISOLATED RESULT NO FURTHER WORKUP RESULT Testing performed at [facility], [address] [place] [address] Comment: Testing performed at [facility], [address] [place] [address] 93020 Culture, Blood [[id number]] Collected: 04/06/19 0338 Order Status: Completed Lab Status: Final result Updated: 04/12/19 0652 Specimen: Peripheral Blood Special Requests R WRIST Special Requests Testing performed at [facility];[address] [place] [address]407 RESULT NO GROWTH 6 DAYS RESULT Testing performed at [facility], [address] [place] [address] Comment: Testing performed at [facility], [address] [place] [address] Culture, Blood [[id number]] Collected: 04/06/19 0331 Order Status: Completed Lab Status: Final result Updated: 04/12/19 0652 Specimen: Peripheral Blood Special Requests L WRIST Special Requests Testing performed at [facility];[address] [place] [address];[place] [address] RESULT NO GROWTH 6 DAYS RESULT Testing performed at [facility], [address] [place] [address] Comment: Testing performed at [facility], [address] [place] [address], [place] [address] Microbiology Results (72 hrs) No results found [...] this note might be different from the origi nal. [facility] Service: Hospitalist Progress Note Pt: Reagan [...] hematuria. Recent history notable for admit to [facility] from 03/28/19 to 04/04/2019 for CHF exacerbation with eventual dischar ge to [facility]. He then re-presented to same hospital [...] Received 8 days of IV antibiotics at [facility] discharged home on with augmentin, now readmitted on 04/06 at [facility] and started on rocephin after sending 2 [...] with age appropriate cancer screening PPx: restart [facility] Code status: Full Dispo: back to [facility] pending improvement in gross hematuria, CHF exacerbation, re peat angiogram, final ID recs, likely 4-5 more days in hospital Grover Charles MD 4:43 PM 04/12/2019 Portions of this chart may have been copied from previous notes for continuity of care purp ose Bhanu Wakefield PA-C - 04/12/2019 4:00 PM PST [facility] Service: Vascular Surgery Progress Note SUBJECTIVE Patient Summary: 74 y.o. man with complex medical issues and LE ischemic ulcers, he wa s recently admitted to the [facility] from 03/28/19 to 04/04/19 where he was treated/ diagnosed with systolic heart failure, type 2 MN/NSTEMI, SHAE, ARF. O2 desaturation brought him from SNF to [facility] and current admission today with CHF and [...] Full code Bhanu Seaman PA-C Vascular Surgery roSunshine streeter, [facility] - 04/12/2019 12:27 PM PST Vancomycin Dosing Per Pharmacy Subjective/Objective Reagan Shepard is a 74 y.o. 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 Additional antimicrobials: zosyn Quadriplegic/Paraplegic: no Diabetes: yes Baseline Serum Creatinine: 0.6 mg/dL Actual weight: 113.3 kg Adjusted body weight: 89.1 kg [place] body weight: 73 kg Current Vital Signs: [...] as indicated. Thank You, Sunshine Love, PharmD, [facility] 04/12/19 3:27 PM Grover Shaver MD - 04/11/2019 5:06 PM PST [facility] Service: Hospitalist Progress Note Pt: Reagan [...] hematuria. Recent history [facility] [facility]2019 for CHF exacerbation with eventual dischar ge to [facility]. He then re-presented to same hospital [...] Received 8 days of IV antibiotics at [facility] discharged home on with augmentin, now readmitted on 04/06 at [facility] and started on rocephin after sending 2 [...] above) Code status: Full Dispo: back to [facility] pending improvement in gross hematuria and CHF exacerbation Grover Charles MD 5:06 PM 04/11/2019 Portions of this chart may have been copied from previous notes for continuity of care purp ose roctor, Sheila Brown [facility] - 04/11/2019 2:03 PM PST Vancomycin Dosing Per Pharmacy Subjective/Objective Reagan Shepard is a 74 y.o. 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 Additional antimicrobials: zosyn Quadriplegic/Paraplegic: no Diabetes: yes Baseline Serum Creatinine: 0.6 mg/dL Actual weight: 113.3 kg Adjusted body weight: 89.1 kg [place] body weight: 73 kg Current Vital Signs: [...] IV q12h (14 mg/kg/dose) Rationale: Based on Kadlec dosing nomogram, current renal function, and desired trough. [facility] ed on patient history, vancomycin 1250 mg [...] therapy as indicated. Thank You, Sheila Ahuja [facility], 04/11/2019, 1:51 PM Hero Sánchez MD - 04/11/2019 10:09 AM PSTFormatting of this note might be different from stephanie brown original. [facility] Service: Infectious Diseases Progress Note Hospital [...] Component Value Units Date/Time Culture, Wound, Superficial [[id number]] (Abnormal) (Susceptibility) Collected: 04/06/19 154 Order Status: Completed Lab Status: Final result Updated: 04/11/19727 Specimen: Body Fluid from Heel, Right Special Requests LT FOOT Special Requests Testing performed at [facility];[address] [place] [address];[place] [address] RESULT -- 1+ ENTEROCOCCUS FAECALIS Aminoglycosides (except [...] Sensitive SUSCEPTIBLE JESSICA Final Testing performed at [facility], [address] [place] [address], [place] [address] Culture, Wound, Superficial [[id number]] Collected: 04/06/19 1546 Order Status: Completed Lab Status: Final result Updated: 04/08/19936 Specimen: Body Fluid from Heel, Right Special Requests RIGHT FOOT Special Requests Testing performed at [facility];[address] [place] [address] RESULT -- 1+ NORMAL SKIN CELSA ISOLATED RESULT NO FURTHER WORKUP RESULT Testing performed at [facility], [address] [place] [address] Comment: Testing performed at [facility], [address] [place] [address] Culture, Blood [[id number]] Collected: 04/06/198 Order Status: Completed Lab Status: Preliminary result Updated: 04/07/19812 Specimen: Peripheral Blood Special Requests R WRIST Special Requests Testing performed at [facility];[address] [place] [address] RESULT NO GROWTH AT THIS TIME RESULT Testing performed at [facility], [address] [place] [address] Comment: Testing performed at [facility], [address] [place] [address] Culture, Blood [[id number]] Collected: 04/06/191 Order Status: Completed Lab Status: Preliminary result Updated: 04/07/19812 Specimen: Peripheral Blood Special Requests L WRIST Special Requests Testing performed at [facility];[address] [place] [address] RESULT NO GROWTH AT THIS TIME RESULT Testing performed at [facility], [address] [place] [address] Comment: Testing performed at [facility], [address] [place] [address] Microbiology Results (72 hrs) No results found [...] Shaver MD - 04/10/2019 4:51 PM PST [facility] Service: Hospitalist Progress Note Pt: Reagan Shepard AGE/SEX: 74 y.o. male ROOM: [facility]/4452- : 1945 PCP: Jamar Manuel MD ADMIT DATE: 04/06/2019 TODAY'S DATE: 04/10/2019 Hospital Day/Hospital Course: LOS: 4 days Mr. Shepard is a 74-year-old gentleman with a history of bilateral nonhealing diabetic trisha t ulcers, and history of TBI, stroke, insulin dependent DM, who presents with CHF exacerbati on with hospital course complicated by gross hematuria. Recent history notable for admit to [facility] from 03/28/19 to 04/04/2019 for CHF exacerbation with eventual dischar ge to [facility]. He then re-presented to same hospital [...] INR 1.2 PTT 34* IMAGING: Reviewed in [facility], no new results. PROBLEM LIST [...] Received 8 days of IV antibiotics at [facility] discharged home on with augmentin, now readmitted on 04/06 at [facility] and started on rocephin after sending 2 [...] above) Code status: Full Dispo: back to [facility] pending improvement in gross hematuria and CHF exacerbation Grover Charles MD 4:51 PM 04/10/2019 Portions of this chart may have been copied from previous notes for continuity of care purp ose Hero Sánchez MD - 04/10/2019 2:27 PM PSTFormatting of this note might be different from the ramiro [place]. [facility] Service: Infectious Diseases Progress Note Hospital [...] Component Value Units Date/Time Culture, Wound, Superficial [[id number]] (Abnormal) (Susceptibility) Collected: 04/06/191545 Order Status: Completed Lab Status: Preliminary result Updated: 04/10/19929 Specimen: Body Fluid from Heel, Right Special Requests LT FOOT Special Requests Testing performed at [facility];[address] [place] [address];[place] [address] RESULT -- 1+ ENTEROCOCCUS FAECALIS Aminoglycosides (except for high-level resistance testing), cephalosporins, clindamycin, an d trimethoprim-sulfamethoxazole may appear active in vitro but they are not effective clinic ally. RESULT -- 1+ ENTEROBACTER CLOACAE COMPLEX RESULT -- 1+ STAPHYLOCOCCUS AUREUS RESULT SUSCEPTIBILITY TO FOLLOW RESULT Testing performed at [facility], [address] [place] [address] Susceptibility Enterococcus faecalis (1) Antibiotic Interpretation Microscan [...] Sensitive SUSCEPTIBLE JESSICA Preliminary Testing performed at [facility], [address] [place] [address], [place] [address] Culture, Wound, Superficial [[id number]] Collected: 04/06/191545 Order Status: Completed Lab Status: Final result Updated: 04/08/1937 Specimen: Body Fluid from Heel, Right Special Requests RIGHT FOOT Special Requests Testing performed at [facility];[address] [place] [address] RESULT -- 1+ NORMAL SKIN CELSA ISOLATED RESULT NO FURTHER WORKUP RESULT Testing performed at [facility], [address] [place] [address] Comment: Testing performed at [facility], [address] [place] [address] Culture, Blood [[id number]] Collected: 04/06/19337 Order Status: Completed Lab Status: Preliminary result Updated: 04/07/19812 Specimen: Peripheral Blood Special Requests R WRIST Special Requests Testing performed at [facility];[address] [place] [address] RESULT NO GROWTH AT THIS TIME RESULT Testing performed at [facility], [address] [place] [address] Comment: Testing performed at [facility], [address] [place] [address] Culture, Blood [[id number]] Collected: 04/06/19330 Order Status: Completed Lab Status: Preliminary result Updated: 04/07/19812 Specimen: Peripheral Blood Special Requests L WRIST Special Requests Testing performed at [facility];[address] [place] [address] RESULT NO GROWTH AT THIS TIME RESULT Testing performed at [facility], [address] [place] [address] Comment: Testing performed at [facility], [address] [place] [address] Microbiology Results (72 hrs) No results found [...] and amputation. Discussed with attending provider: Grover Chalres MD . Hero Richardson MD, MPH Infectious Diseases 04/10/19 Aleksander Lujan MD - 04/10/2019 1:26 PM PSTFormatting of this note might be different from the [facility] Service: Urology Progress Note Hospital Day: [...] consider MRI Signed by: Madison Argueta, Jamar Norman Date/Time: 04/07/2019 1:43 PM XR Foot Right [...] consider MRI Signed by: Madison Argueta, Jamar Norman Date/Time: 04/07/2019 1:43 PM XR Chest AP [...] volumes done for scoliosis. Signed by: Madison Acosta C. Mark Sign Date/Time: 04/08/2019 9:32 AM XR Abdomen [...] of congestive failure. Signed by: Madison Solis [facility] Sign Date/Time: 04/09/2019 9:25 AM US Renal [...] essential h ypertension, insulin-dependent diabetes, history of MN, GERD, ischemic stroke, diffuse signi ficant peripheral [...] signed the consent and asked us to procetiffany d. Code Status: Full Code Aleksander Montiel [...] Lujan MD - 04/09/2019 6:21 PM PST [facility] Service: Urology Progress Note Hospital Day: LOS: 3 days Post-Op Day: * No surgery found * SUBJECTIVE Events Overnight: This 74-year-old gentleman with a known history of insulin-dependen t diabetes mellitus, advanced peripheral vascular disease, osteomyelitis of right foot, diab etic foot ulcers which are significant and advanced in both feet, left hemiparesis, essentia l hypertension, hyperkalemia, history of GERD and non-STEMI MN, history of bacteremia, histo ry of stroke. [...] Color, UA STRAW Clarity, UA CLEAR Specific [place], Urine 1.006 1.002 - 1.030 Leukocyte esterase, [...] of congestive failure. Signed by: Madison Solis, [facility] Sign Date/Time: 04/09/2019 9:25 AM PROBLEM [...] longstanding history of diabetes, hypertension, GERD, ac [place] left hemiparesis, essential hypertension and very advanced [...] time. Continue current diet as Rx'd. Mariluz l follow progress/course and offer wound healing supplements as indicated when POC/GOC are k nown. Following with team. Nutritional Risk Required Follow Up: (L 04/16/2019) Radha Anaya RD 04/09/2019 5:14 PM Beatrice Wakefield PA-C - 04/09/2019 1:55 PM PSTFormatting of this note might be different from the [facility] Service: Vascular Surgery Progress Note SUBJECTIVE Patient Summary: 74 y.o. man with complex medical issues and LE ischemic ulcers, he wa s recently admitted to the [facility] from 03/28/19 to 04/04/19 where he was treated/ diagnosed with systolic heart failure, type 2 MN/NSTEMI, SHAE, ARF. O2 desaturation brought him from SNF to [facility] and current admission today with CHF and [...] will have him scheduled for 04/12/2019 at [facility] Gang Miner for his first leg, then will plan the other leg for Tuesday04/16/2019. In between angiograms, he will require hy dration to flush the contrast. For now, continue pain management and antibiotics. Vascular w ill continue to follow. Code Status: Full code Bhanu Seaman PA-C Vascular Surgery nu Esquivel P T - 04/09/2019 1:30 PM PSTMISSED [...] Hospitalist Progress Note Reagan Shepard 74 y.o. [id number] male Jamar Manuel MD Hospital Day: LOS: 3 days Patient Summary: 74-year-old gentleman with past medical history of bilateral nonheali ng diabetic foot ulcer, and history of traumatic brain injury, stroke, diabetes mellitus typ e 2 insulin-dependent who was recently admitted to [facility] from 03/28/21 020 with acute hypoxic respiratory failure secondary to systolic CHF exacerbation with eject ion fraction of 40%, CTA chest negative for PE, troponin was minimally elevated 0.44 treated conservatively with medical therapy discharge to [facility] who went back to [facility] emergency department with worsening shortness of [...] 04/09/2019 1044 Gross per 24 hour Intake 79859 ml Output 9850 ml Net 856 ml [...] BILITOT 0.5 08/21/2018 AST 18 04/09/2019 ALT 04/09/2019 EGFR >60 04/09/2019 Magnesium: Lab Results [...] and patient evaluated by cardiology w francisco recommended medical management only Hypertension highly elevated [...] received 8 days of IV antibiotic at [facility] discharged home on on Augmentin readmitted on at [facility] and started on Rocephin after sending 2 set of blood cultures which remain negative. Wound culture gre w Enterobacter and Enterococcus faecalis Plan antibiotic changed to Zosyn, Rocephin discontinued Infectious disease consulted Anemia secondary to iron deficiency Plan continue on IV iron day 3, guaiac stools -ve Hypomagnesemia repleted DVT prophylaxis on heparin currently on hold due to hematuria Ady Yin MD 04/09/2019 hiSallie pope DPM - 04/09/2019 7:05 AM PSTFormatting of this note might be different from the o riginal. [facility] Service: Podiatry Progress Note Hospital Day: LOS: 3 days Post-Op Day: * No surgery found * SUBJECTIVE Patient Summary: The patient is 74 y.o. male with significant cardiac and IDDM2 past medical history with recent admissions to [facility] where he was found to have el evated troponin level and he became decompensated and desaturated and was transferred to [facility] for a higher level of care. Although [...] Ady Mata RN - 04/08/2019 9:49 PM [id number]: pt a/o to all, vss. cbi in [...] Hospitalist Progress Note Reagan Shepard 74 y.o. [id number] male Jamar Manuel MD Hospital Day: LOS: 2 days Patient Summary: 74-year-old gentleman with past medical history of bilateral nonheali ng diabetic foot ulcer, and history of traumatic brain injury, stroke, diabetes mellitus typ e 2 insulin-dependent who was recently admitted to [facility] from 03/28/21 020 with acute hypoxic respiratory failure secondary to systolic CHF exacerbation with eject ion fraction of 40%, CTA chest negative for PE, troponin was minimally elevated 0.44 treated conservatively with medical therapy discharge to [facility] who went back to [facility] emergency department with worsening shortness of [...] wound care and podiatry following the patient 1/19 with gross hematuria likely secondary to traumatic [...] received 8 days of IV antibiotic at [facility] discharged home on on Augmentin readmitted on at [facility] and started on Rocephin after sending 2 [...] of this note might be different from th e original. [facility] Service: Cardiology Progress Note Hospital Day: [...] Nandini Barboza RN - 04/07/2019 10:48 PM [id number]: pt a/o to all, occasionally forgetful, vss. [...] 04/07/2019 2:29 PM PST Hospitalist Progress Note Reagan Shepard 74 y.o. [id number] male Jamar Manuel MD Hospital Day: LOS: 1 day Patient Summary: 74-year-old gentleman with past medical history of bilateral nonheali ng diabetic foot ulcer, and history of traumatic brain injury, stroke, diabetes mellitus typ e 2 insulin-dependent who was recently admitted to [facility] from 03/28/21 020 with acute hypoxic respiratory failure secondary to systolic CHF exacerbation with eject ion fraction of 40%, CTA chest negative for PE, troponin was minimally elevated 0.44 treated conservatively with medical therapy discharge to [facility] who went back to [facility] emergency department with worsening shortness of [...] erin singh recommend medical management only Hypertension uncontrolled Plan [...] received 8 days of IV antibiotic at [facility] discharged home on on Augmentin readmitted on at [facility] and started on Rocephin after sending 2 set of blood cultures which remain negative. We will continue the patient on Rocephin IV while in the hospital then discharge home on Augmentin Anemia secondary to iron deficiency Plan start the patient on IV iron, guaiac stools pending Hypomagnesemia repleted DVT prophylaxis on heparin Ady Yin MD 04/07/2019 avage, Brayden Jennings MD - 04/07/2019 11:06 AM PSTFormatting of this note might be different from th e original. [facility] Service: Cardiology Progress Note Hospital Day: [...] Andrés Novoa RN - 04/06/2019 10:15 AM [facility] Service: Wound/Ostomy Care Progress Note Wound care stopped by for evaluation of bilateral feet. Floor RN requested we come back steffany orrow due to patient's health status. Thank you for allowing me to participate in the care of this patient. I will continue to follow with you. Please call if there are any additional questions. Blanquita Nieves RN 04/06/19 10:16 AM Jessica Uriarte, JAYSON - 04/06/2019 7:58 AM PSTMISSED THERAPY VISIT [...] | | | | | right foot ([facility]) | 04/20/2019 until | | | | | | 04/20/2020 | + +---------+--------+ + + | Comprehensive | Lab | Routin | Other | Weekly for 2 | | Metabolic Panel | | e | osteomyelitis of | Occurrences starting | | | | | right foot ([facility]) | 04/20/2019 until | | | | | | 04/20/2020 | + +---------+--------+ + + | C-Reactive Protein | Lab | Routin | Other | Weekly for 6 | | | | e | osteomyelitis of | Occurrences starting | | | | | right foot ([facility]) | 04/20/2019 until | | | | | | 04/20/2020 | + +---------+--------+ + + | Sedimentation Rate | Lab | Routin | Other | Weekly for 6 | | | | e | osteomyelitis of | Occurrences starting | | | | | right foot ([facility]) | 04/20/2019 until | | | [...] | + +--------+ + + + | EDDIE ISABEL | MARELY | 04/17/2019 | | Results [...] | | | | | PST | ([facility]) Peripheral | | | | | | vascular disease | | | | | | ([facility]) Other | | | | | | osteomyelitis of | | | | | | right foot ([facility]) | | | | | | Essential | | | | | | hypertension Acute | | | | | | left hemiparesis | | | | | | ([facility]) | | + +--------+ + + [...] 3.6 | 2.3 - 4.8 mg/dL | [facility] | | | | [...] | | | | | performed at [facility];[address] | | | | | | [facility];[place], [place] | | | | | | [address] | | | | + + + + + + + + | Specimen | + + | Blood | + + + + + + + | Performing | Address | City/State/Zipcode | Phone Number | | Organization | | | | + + + + + | [facility] | [address] | [place] [address] | [phone] | + + + + + POC [...] | | | POC | performed at [facility];[address] | | LAB[address]AT[address] | | | | [address];[place], [place] | | | | | | [address] | | | | + + + + + + + + | Specimen | + + | | + + + + + + + | Performing | Address | City/State/Zipcode | Phone Number | | Organization | | | | + + + + + | [facility] | [address] | [place] [address] | [phone] | + + + + + POC [...] | | | POC | performed at [facility];[address] | | LAB[address]ATORY | | | | [address];[place] | | | | | | [address] | | | | + + + + + + + + | Specimen | + + | | + + + + + + + | Performing | Address | City/State/Zipcode | Phone Number | | Organization | | | | + + + + + | [facility] | [address] | [place] [address] | [phone] | + + + + + POC Glucose (04/21/2019 5:12 AM PST) + + + + + + | Component | Value | Ref Range | Performed | Pathologist | | | | | At | Signature | + + + + + + | Glucose, | 146 (H)Comment: Testing | 65 - 99 mg/dL | [facility] | | | POC | performed at [facility];[address] | | LABORATORY | | | | [address];[place], [place] | | | | | | [address] | | | | + + + + + + + + | Specimen | + + | | + + + + + + + | Performing | Address | City/State/Zipcode | Phone Number | | Organization | | | | + + + + + | [facility] | [address] | [place] [address] | [phone] | + + + + + POC [...] | | | POC | performed at [facility];[address] | | LABORATORY | | | | [address];[place] | | | | | | [address] | | | | + + + + + + + + | Specimen | + + | | + + + + + + + | Performing | Address | City/State/Zipcode | Phone Number | | Organization | | | | + + + + + | [facility] | [address] | [place] [address] | [phone] | + + + + + POC Glucose (04/20/2019 5:30 PM PST) + + + + + + | Component | Value | Ref Range | Performed | Pathologist | | | | | At | Signature | + + + + + + | Glucose, | 220 (H)Comment: Testing | 65 - 99 mg/dL | [facility] | | | POC | performed at [facility];[address] | | LABORATORY | | | | [address];[place] | | | | | | [address] | | | | + + + + + + + + | Specimen | + + | | + + + + + + + | Performing | Address | City/State/Zipcode | Phone Number | | Organization | | | | + + + + + | [facility] | [address] | [place] [address] | [phone] | + + + + + POC Glucose (04/20/2019 5:04 PM PST) + + + + + + | Component | Value | Ref Range | Performed | Pathologist | | | | | At | Signature | + + + + + + | Glucose, | 199 (H)Comment: Testing | 65 - 99 mg/dL | [facility] | | | POC | performed at [facility];[address] | | LABORATORY | | | | [address];[place] | | | | | | [address] | | | | + + + + + + + + | Specimen | + + | | + + + + + + + | Performing | Address | City/State/Zipcode | Phone Number | | Organization | | | | + + + + + | [facility] | [address] | [place] [address] | [phone] | + + + + + POC [...] | | | POC | performed at [facility];[address] | | LABORATORY | | | | [address];[place], [place] | | | | | | [address] | | | | + + + + + + + + | Specimen | + + | | + + + + + + + | Performing | Address | City/State/Zipcode | Phone Number | | Organization | | | | + + + + + | [facility] | [address] | [place] [address] | [phone] | + + + + + Vancomycin Level (04/20/2019 12:39 PM PST) + + + + + + | Component | Value | Ref Range | Performed | Pathologist | | | | | At | Signature | + + + + + + | Vancomycin | 18.3Comment: Testing | ug/mL | [facility] | | | Random, | performed at [facility];[address] | | LABORATORY | | | Serum | [address];[place] | | | | | | [address] | | | | + + + + + + + + | Specimen | + + | Blood | + + + + + + + | Performing | Address | City/State/Zipcode | Phone Number | | Organization | | | | + + + + + | [facility] | [address] | [place] [address] | [phone] | + + + + + POC Glucose (04/20/2019 8:58 AM PST) + + + + + + | Component | Value | Ref Range | Performed | Pathologist | | | | | At | Signature | + + + + + + | Glucose, | 244 (H)Comment: Testing | 65 - 99 mg/dL | [facility] | | | POC | performed at [facility];[address] | | LABORATORY | | | | [address];[place] | | | | | | [address] | | | | + + + + + + + + | Specimen | + + | | + + + + + + + | Performing | Address | City/State/Zipcode | Phone Number | | Organization | | | | + + + + + | [facility] | [address] | [place] [address] | [phone] | + + + + + POC Glucose (04/20/2019 8:16 AM PST) + + + + + + | Component | Value | Ref Range | Performed | Pathologist | | | | | At | Signature | + + + + + + | Glucose, | 300 (H)Comment: Testing | 65 - 99 mg/dL | [facility] | | | POC | performed at [facility];[address] | | LABORATORY | | | | [address];[place], [place] | | | | | | [address] | | | | + + + + + + + + | Specimen | + + | | + + + + + + + | Performing | Address | City/State/Zipcode | Phone Number | | Organization | | | | + + + + + | [facility] | [address] | [place] [address] | [phone] | + + + + + POC [...] | | | POC | performed at [facility];888 | | LABORATORY | | | | [address];[place] | | | | | | [address] | | | | + + + + + + + + | Specimen | + + | | + + + + + + + | Performing | Address | City/State/Zipcode | Phone Number | | Organization | | | | + + + + + | [facility] | [address] | [place] [address] | [phone] | + + + + + POC [...] | | | POC | performed at [facility];[address] | | LABORATORY | | | | [address];[place], [place] | | | | | | [address] | | | | + + + + + + + + | Specimen | + + | | + + + + + + + | Performing | Address | City/State/Zipcode | Phone Number | | Organization | | | | + + + + + | [facility] | [address] | [place] [address] | [phone] | + + + + + POC Glucose (04/19/2019 12:44 PM PST) + + + + + + | Component | Value | Ref Range | Performed | Pathologist | | | | | At | Signature | + + + + + + | Glucose, | 209 (H)Comment: Testing | 65 - 99 mg/dL | [facility] | | | POC | performed at [facility];[address] | | LABORATORY | | | | [address];[place] | | | | | | [address] | | | | + + + + + + + + | Specimen | + + | | + + + + + + + | Performing | Address | City/State/Zipcode | Phone Number | | Organization | | | | + + + + + | [facility] | [address] | [place] [address] | [phone] | + + + + + POC Glucose (04/19/2019 8:13 AM PST) + + + + + + | Component | Value | Ref Range | Performed | Pathologist | | | | | At | Signature | + + + + + + | Glucose, | 176 (H)Comment: Testing | 65 - 99 mg/dL | [facility] | | | POC | performed at [facility];[address] | | LABORATORY | | | | [address];[place], [place] | | | | | | [address] | | | | + + + + + + + + | Specimen | + + | | + + + + + + + | Performing | Address | City/State/Zipcode | Phone Number | | Organization | | | | + + + + + | [facility] | [address] | [place] [address] | [phone] | + + + + + Basic [...] | | | | | performed at [facility], [address] | | | | | | [facility], | | | | | | [place] [address] | | | | + + + + + + + + | Specimen | + + | Blood | + + + + + + + | Performing | Address | City/State/Zipcode | Phone Number | | Organization | | | | + + + + + | [facility] | [address] | [place] [address] | [phone] | + + + + + CBC [...] | | | | | performed at [facility], [address] | | | | | | [employer], | | | | | | [place] [address] | | | | | |MICRO | | | | | |NORMAL PLT MORPH | | | | | |Testing performed at [facility], [address] [facility], [place] [address] | | | | | | | | | | + + +---- + + + + + | Specimen | + + | Blood | + + + + + + + | Performing | Address | City/State/Zipcode | Phone Number | | Organization | | | | + + + + + | [facility] | [address] | [place] [address] | [phone] | + + + + + POC [...] | | | POC | performed at [facility];[address] | | LABORATORY | | | | [address];[place] | | | | | | [address] | | | | + + + + + + + + | Specimen | + + | | + + + + + + + | Performing | Address | City/State/Zipcode | Phone Number | | Organization | | | | + + + + + | [facility] | [address] | [place] [address] | [phone] | + + + + + POC Glucose (04/18/2019 9:02 PM PST) + + + + + + | Component | Value | Ref Range | Performed | Pathologist | | | | | At | Signature | + + + + + + | Glucose, | 295 (H)Comment: Testing | 65 - 99 mg/dL | [facility] | | | POC | performed at [facility];[address] | | LABORATORY | | | | [address];[place] | | | | | | [address] | | | | + + + + + + + + | Specimen | + + | | + + + + + + + | Performing | Address | City/State/Zipcode | Phone Number | | Organization | | | | + + + + + | [facility] | [address] | [place] [address] | [phone] | + + + + + POC Glucose (04/18/2019 8:01 PM PST) + + + + + + | Component | Value | Ref Range | Performed | Pathologist | | | | | At | Signature | + + + + + + | Glucose, | 245 (H)Comment: Testing | 65 - 99 mg/dL | [facility] | | | POC | performed at [facility];[address] | | LABORATORY | | | | [address];[place] | | | | | | [address] | | | | + + + + + + + + | Specimen | + + | | + + + + + + + | Performing | Address | City/State/Zipcode | Phone Number | | Organization | | | | + + + + + | [facility] | [address] | [place] [address] | [phone] | + + + + + POC Glucose (04/18/2019 6:08 PM PST) + + + + + + | Component | Value | Ref Range | Performed | Pathologist | | | | | At | Signature | + + + + + + | Glucose, | 181 (H)Comment: Testing | 65 - 99 mg/dL | [facility] | | | POC | performed at [facility];[address] | | LABORATORY | | | | [address];[place], [place] | | | | | | [address] | | | | + + + + + + + + | Specimen | + + | | + + + + + + + | Performing | Address | City/State/Zipcode | Phone Number | | Organization | | | | + + + + + | [facility] | [address] | [place] [address] | [phone] | + + + + + POC [...] | | | POC | performed at [facility];[address] | | LABORATORY | | | | [address];[place], [place] | | | | | | [address] | | | | + + + + + + + + | Specimen | + + | | + + + + + + + | Performing | Address | City/State/Zipcode | Phone Number | | Organization | | | | + + + + + | [facility] | [address] | [place] [address] | [phone] | + + + + + NM [...] Testing | 65 - 99 mg/dL | [facility] | | | POC | performed at [facility];[address] | | LABORATORY | | | | [address];[place] | | | | | | [address] | | | | + + + + + + + + | Specimen | + + | | + + + + + + + | Performing | Address | City/State/Zipcode | Phone Number | | Organization | | | | + + + + + | [facility] | [address] | [place] [address] | [phone] | + + + + + Basic [...] | | | | | performed at [facility];[address] | | | | | | [address];[place], [place] | | | | | | [address] | | | | + + + + + + + + | Specimen | + + | Blood | + + + + + + + | Performing | Address | City/State/Zipcode | Phone Number | | Organization | | | | + + + + + | [facility] | [address] | [place] [address] | [phone] | + + + + + CBC [...] | | | Estimate | performed at [facility] | | LABORATORY | | | | [address];[place] | | | | | | [address] | | | | + + + + + + + + | Specimen | + + | Blood | + + + + + + + | Performing | Address | City/State/Zipcode | Phone Number | | Organization | | | | + + + + + | [facility] | [address] | [place] [address] | [phone] | + + + + + POC Glucose (04/17/2019 8:41 PM PST) + + + + + + | Component | Value | Ref Range | Performed | Pathologist | | | | | At | Signature | + + + + + + | Glucose, | 183 (H)Comment: Testing | 65 - 99 mg/dL | [facility] | | | POC | performed at [facility];[address] | | LABORATORY | | | | [address];[place], [place] | | | | | | [address] | | | | + + + + + + + + | Specimen | + + | | + + + + + + + | Performing | Address | City/State/Zipcode | Phone Number | | Organization | | | | + + + + + | [facility] | [address] | [place] [address] | [phone] | + + + + + POC [...] | | | POC | performed at [facility];[address] | | LABORATORY | | | | [address];[place] | | | | | | [address] | | | | + + + + + + + + | Specimen | + + | | + + + + + + + | Performing | Address | City/State/Zipcode | Phone Number | | Organization | | | | + + + + + | [facility] | [address] | [place] [address] | [phone] | + + + + + Vancomycin, Trough (04/17/2019 12:30 PM PST) + + + + + + | Component | Value | Ref Range | Performed | Pathologist | | | | | At | Signature | + + + + + + | Vancomycin, | 17.2Comment: 15 to 20 | 10 - 20 ug/mL | [facility] | | | Trough | ug/mL for [...] | | | | | performed at [facility];[address] | | | | | | [address];[place] | | | | | | [address] | | | | + + + + + + + + | Specimen | + + | Blood | + + + + + + + | Performing | Address | City/State/Zipcode | Phone Number | | Organization | | | | + + + + + | [facility] | [address] | [place] [address] | [phone] | + + + + + POC [...] | | | POC | performed at [facility];[address] | | LABORATORY | | | | [address];[place] | | | | | | [address] | | | | + + + + + + + + | Specimen | + + | | + + + + + + + | Performing | Address | City/State/Zipcode | Phone Number | | Organization | | | | + + + + + | [facility] | [address] | [place] [address] | [phone] | + + + + + POC [...] | | | POC | performed at [facility];[address] | | LABORATORY | | | | [address];[place] | | | | | | [address] | | | | + + + + + + + + | Specimen | + + | | + + + + + + + | Performing | Address | City/State/Zipcode | Phone Number | | Organization | | | | + + + + + | [facility] | [address] | [place] [address] | [phone] | + + + + + POC [...] | | | POC | performed at [facility];[address] | | LABORATORY | | | | [address];[place], [place] | | | | | | [address] | | | | + + + + + + + + | Specimen | + + | | + + + + + + + | Performing | Address | City/State/Zipcode | Phone Number | | Organization | | | | + + + + + | [facility] | [address] | [place] [address] | [phone] | + + + + + Basic [...] | | | | | performed at [facility], [address] | | | | | | [facility], | | | | | | [place] [address] | | | | + + + + + + + + | Specimen | + + | Blood | + + + + + + + | Performing | Address | City/State/Zipcode | Phone Number | | Organization | | | | + + + + + | [facility] | [address] | [place] [address] | [phone] | + + + + + CBC with Differential (04/17/2019 5:20 AM PST) + + +---- + + + | Component | Value | Ref Range | Performed | Pathologist | | | | | At | Signature | + + +---- + + + | WBC | 10.10 | 3.8 0 - 11.00 | [facility] [...] | | | | | performed at [facility], [address] | | | | | | [facility], | | | | | | [place] [address] | | | | | |MICRO | | | | | |NORMAL PLT MORPH | | | | | |Testing performed at [facility], [address] [facility], [place] [address] | | | | | | | | | | + + +---- + + + + + | Specimen | + + | Blood | + + + + + + + | Performing | Address | City/State/Zipcode | Phone Number | | Organization | | | | + + + + + | [facility] | [address] | [place] [address] | [phone] | + + + + + POC Glucose (04/16/2019 8:57 PM PST) + + + + + + | Component | Value | Ref Range | Performed | Pathologist | | | | | At | Signature | + + + + + + | Glucose, | 96Comment: Testing | 65 - 99 mg/dL | [facility] | | | POC | performed at [facility];[address] | | LABORATORY | | | | [address];[place] | | | | | | [address] | | | | + + + + + + + + | Specimen | + + | | + + + + + + + | Performing | Address | City/State/Zipcode | Phone Number | | Organization | | | | + + + + + | [facility] | [address] | [place] [address] | [phone] | + + + + + POC Glucose (04/16/2019 4:39 PM PST) + + + + + + | Component | Value | Ref Range | Performed | Pathologist | | | | | At | Signature | + + + + + + | Glucose, | 192 (H)Comment: Testing | 65 - 99 mg/dL | [facility] | | | POC | performed at [facility];[address] | | LABORATORY | | | | [address];[place], [place] | | | | | | [address] | | | | + + + + + + + + | Specimen | + + | | + + + + + + + | Performing | Address | City/State/Zipcode | Phone Number | | Organization | | | | + + + + + | [facility] | [address] | [place] [address] | [phone] | + + + + + POC [...] | | | POC | performed at [facility];[address] | | LABORATORY | | | | [address];[place], [place] | | | | | | [address] | | | | + + + + + + + + | Specimen | + + | | + + + + + + + | Performing | Address | City/State/Zipcode | Phone Number | | Organization | | | | + + + + + | [facility] | [address] | [place] [address] | [phone] | + + + + + POC Glucose (04/16/2019 7:36 AM PST) + + + + + + | Component | Value | Ref Range | Performed | Pathologist | | | | | At | Signature | + + + + + + | Glucose, | 100 (H)Comment: Testing | 65 - 99 mg/dL | [facility] | | | POC | performed at [facility];[address] | | LABORATORY | | | | [address];[place], [place] | | | | | | [address] | | | | + + + + + + + + | Specimen | + + | | + + + + + + + | Performing | Address | City/State/Zipcode | Phone Number | | Organization | | | | + + + + + | [facility] | [address] | [place] [address] | [phone] | + + + + + CBC [...] | | | | | performed at [facility], [address] | | | | | | [facility], | | | | | | [place] [address] | | | | | |MICRO | | | | | |NORMAL PLT MORPH | | | | | |Testing performed at [facility], [address] [place] [address] | | | | | | | | | | + + +---- + + + + + | Specimen | + + | Blood | + + + + + + + | Performing | Address | City/State/Zipcode | Phone Number | | Organization | | | | + + + + + | [facility] | [address] | [place] [address] | [phone] | + + + + + Basic [...] | >60Comment: GFR <60: | >60 | [facility] | | | GFR | CHRONIC KIDNEY [...] | | | | | performed at [facility], [address] | | | | | | [facility], | | | | | | [place] [address] | | | | + + + + + + + + | Specimen | + + | Blood | + + + + + + + | Performing | Address | City/State/Zipcode | Phone Number | | Organization | | | | + + + + + | [facility] | [address] | [place] [address] | [phone] | + + + + + POC [...] | | | POC | performed at [facility];[address] | | LABORATORY | | | | [address];[place] | | | | | | [address] | | | | + + + + + + + + | Specimen | + + | | + + + + + + + | Performing | Address | City/State/Zipcode | Phone Number | | Organization | | | | + + + + + | [facility] | [address] | [place] [address] | [phone] | + + + + + POC Glucose (04/15/2019 4:51 PM PST) + + + + + + | Component | Value | Ref Range | Performed | Pathologist | | | | | At | Signature | + + + + + + | Glucose, | 239 (H)Comment: Testing | 65 - 99 mg/dL | [facility] | | | POC | performed at [facility];[address] | | LABORATORY | | | | [address];[place] | | | | | | [address] | | | | + + + + + + + + | Specimen | + + | | + + + + + + + | Performing | Address | City/State/Zipcode | Phone Number | | Organization | | | | + + + + + | [facility] | [address] | [place] [address] | [phone] | + + + + + POC [...] | | | POC | performed at [facility];[address] | | LABORATORY | | | | [address];[place], [place] | | | | | | [address] | | | | + + + + + + + + | Specimen | + + | | + + + + + + + | Performing | Address | City/State/Zipcode | Phone Number | | Organization | | | | + + + + + | [facility] | [address] | [place] [address] | [phone] | + + + + + Type [...] + + + | BB BAND | [id number] | | [facility] | | | | | | LABORATORY | | + + + + + + | UNIT # | [id number] | | [facility] | | | | [...] + + + | UNIT # | [id number] | | [facility] | | | | [...] + + + | UNIT # | [id number] | | [facility] | | | | [...] | | | RESULT | performed at [facility];[address] | | LABORATORY | | | | [address];[place], [place] | | | | | | [address] | | | | + + + + + + + + | Specimen | + + | Blood | + + + + + + + | Performing | Address | City/State/Zipcode | Phone Number | | Organization | | | | + + + + + | [facility] | [address] | [place] [address] | [phone] | + + + + + Red [...] | ORDER RECEIVED IN BLOOD | | [facility] | | | COMMENT | BANK. | | LABORATORY | | + + + + + + | BLOOD BANK | Testing performed at | | [facility] | | | COMMENT | [facility];[address] | | LABORATORY | | | | [address];[place] [address] | | | | + + + + + + + + | Specimen | + + | | + + + + + + + | Performing | Address | City/State/Zipcode | Phone Number | | Organization | | | | + + + + + | [facility] | [address] | [place] [address] | [phone] | + + + + + POC Glucose (04/15/2019 9:11 AM PST) + + + + + + | Component | Value | Ref Range | Performed | Pathologist | | | | | At | Signature | + + + + + + | Glucose, | 165 (H)Comment: Testing | 65 - 99 mg/dL | [facility] | | | POC | performed at [facility];[address] | | LABORATORY | | | | [address];[place] | | | | | | [address] | | | | + + + + + + + + | Specimen | + + | | + + + + + + + | Performing | Address | City/State/Zipcode | Phone Number | | Organization | | | | + + + + + | [facility] | [address] | [place] [address] | [phone] | + + + + + Vancomycin, [...] | | | | | TO CRISTA Conrad/REBA | | | | | | 0829T,JBREAD BACK | | | | | | RESULTS VERIFIEDTesting | | | | | | performed at [facility];[address] | | | | | | [address];[place], [place] | | | | | | [address] | | | | + + + + + + + + | Specimen | + + | Blood | + + + + + + + | Performing | Address | City/State/Zipcode | Phone Number | | Organization | | | | + + + + + | [facility] | [address] | [place] [address] | [phone] | + + + + + CBC [...] | Platelet | ADEQUATEComment: Testing | | IDA | | | Estimate | performed at [facility];[address] | | LABORATORY | | | | [address];[place] | | | | | | [address] | | | | + + + + + + + + | Specimen | + + | Blood | + + + + + + + | Performing | Address | City/State/Zipcode | Phone Number | | Organization | | | | + + + + + | [facility] | [address] | [place] [address] | [phone] | + + + + + Basic [...] | | | | | | MDRD [facility] traceable | | | | | | equation.Testing | | | | | | performed at [facility];[address] | | | | | | [facility];[place], [place] | | | | | | [address] | | | | + + + + + + + + | Specimen | + + | Blood | + + + + + + + | Performing | Address | City/State/Zipcode | Phone Number | | Organization | | | | + + + + + | [facility] | [address] | [place] [address] | [phone] | + + + + + POC [...] | | | POC | performed at [facility];[address] | | LABORATORY | | | | [address];[place], [place] | | | | | | [address] | | | | + + + + + + + + | Specimen | + + | | + + + + + + + | Performing | Address | City/State/Zipcode | Phone Number | | Organization | | | | + + + + + | [facility] | [address] | [place] [address] | [phone] | + + + + + POC Glucose (04/14/2019 4:58 PM PST) + + + + + + | Component | Value | Ref Range | Performed | Pathologist | | | | | At | Signature | + + + + + + | Glucose, | 175 (H)Comment: Testing | 65 - 99 mg/dL | [facility] | | | POC | performed at [facility];[address] | | LABORATORY | | | | [address];[place], [place] | | | | | | [address] | | | | + + + + + + + + | Specimen | + + | | + + + + + + + | Performing | Address | City/State/Zipcode | Phone Number | | Organization | | | | + + + + + | [facility] | [address] | [place] [address] | [phone] | + + + + + POC Glucose (04/14/2019 11:43 AM PST) + + + + + + | Component | Value | Ref Range | Performed | Pathologist | | | | | At | Signature | + + + + + + | Glucose, | 153 (H)Comment: Testing | 65 - 99 mg/dL | [facility] | | | POC | performed at [facility];[address] | | LABORATORY | | | | [address];[place] | | | | | | [address] | | | | + + + + + + + + | Specimen | + + | | + + + + + + + | Performing | Address | City/State/Zipcode | Phone Number | | Organization | | | | + + + + + | [facility] | [address] | [place] [address] | [phone] | + + + + + ECHO [...] Testing | 65 - 99 mg/dL | [facility] | | | POC | performed at [facility];[address] | | LABORATORY | | | | [address];[place] | | | | | | [address] | | | | + + + + + + + + | Specimen | + + | | + + + + + + + | Performing | Address | City/State/Zipcode | Phone Number | | Organization | | | | + + + + + | [facility] | [address] | [place] [address] | [phone] | + + + + + B [...] | | LABORATORY | | | | [facility];[address] [facility] | | | | | | Blvd;[place] [address] | | | | + + + + + + + + | Specimen | + + | | + + + + + + + | Performing | Address | City/State/Zipcode | Phone Number | | Organization | | | | + + + + + | [facility] | [address] | [place] [address] | [phone] | + + + + + CBC [...] | Platelet | ADEQUATEComment: Testing | | IDA | | | Estimate | performed at [facility];[address] | | LABORATORY | | | | Kiara Jaramillo;[place] | | | | | | [address] | | | | + + + + + + + + | Specimen | + + | | + + + + + + + | Performing | Address | City/State/Zipcode | Phone Number | | Organization | | | | + + + + + | [facility] | [address] | [place] [address] | [phone] | + + + + + Troponin I (04/14/2019 6:29 AM PST) + + + + + + | Component | Value | Ref Range | Performed | Pathologist | | | | | At | Signature | + + + + + + | Troponin I | 0.014Comment: 0.04 | 0.00 - 0.04 | [facility] | | | | ng/mL or less [...] at | | | | | | [facility];[address] [place] [address] | | | | | | Bl;[place] [address] | | | | + + + + + + + + | Specimen | + + | Blood | + + + + + + + | Performing | Address | City/State/Zipcode | Phone Number | | Organization | | | | + + + + + | [facility] | [address] | [place] [address] | [phone] | + + + + + Basic [...] | | | | | performed at [facility];[address] | | | | | | [address];[place], [place] | | | | | | [address] | | | | + + + + + + + + | Specimen | + + | Blood | + + + + + + + | Performing | Address | City/State/Zipcode | Phone Number | | Organization | | | | + + + + + | [facility] | [address] | [place] [address] | [phone] | + + + + + Vancomycin Level (04/14/2019 4:53 AM PST) + + + + + + | Component | Value | Ref Range | Performed | Pathologist | | | | | At | Signature | + + + + + + | Vancomycin | 20.6Comment: Testing | ug/mL | ART[facility]IO | | | Random, | performed at [facility];[address] | | LABORATORY | | | Serum | [address];[place] | | | | | | [address] | | | | + + + + + + + + | Specimen | + + | Blood | + + + + + + + | Performing | Address | City/State/Zipcode | Phone Number | | Organization | | | | + + + + + | [facility] | [address] | [place] [address] | [phone] | + + + + + POC [...] | | | POC | performed at [facility];[address] | | LABORATORY | | | | [address];[place], [place] | | | | | | [address] | | | | + + + + + + + + | Specimen | + + | | + + + + + + + | Performing | Address | City/State/Zipcode | Phone Number | | Organization | | | | + + + + + | [facility] | [address] | [place] [address] | [phone] | + + + + + Troponin I (04/14/2019 1:19 AM PST) + + + + + + | Component | Value | Ref Range | Performed | Pathologist | | | | | At | Signature | + + + + + + | Troponin I | 0.015Comment: 0.04 | 0.00 - 0.04 | [facility] | | | | ng/mL or less [...] at | | | | | | [facility];[address] [facility] | | | | | | [facility];[place] [address] | | | | + + + + + + + + | Specimen | + + | Blood | + + + + + + + | Performing | Address | City/State/Zipcode | Phone Number | | Organization | | | | + + + + + | [facility] | [address] | [place] [address] | [phone] | + + + + + ECG [...] | | | POC | performed at [facility];[address] | | LABORATORY | | | | [address];[place], [place] | | | | | | [address] | | | | + + + + + + + + | Specimen | + + | | + + + + + + + | Performing | Address | City/State/Zipcode | Phone Number | | Organization | | | | + + + + + | [facility] | [address] | [place] [address] | [phone] | + + + + + POC Glucose (04/13/2019 4:19 PM PST) + + + + + + | Component | Value | Ref Range | Performed | Pathologist | | | | | At | Signature | + + + + + + | Glucose, | 109 (H)Comment: Testing | 65 - 99 mg/dL | [facility] | | | POC | performed at [facility];[address] | | LABORATORY | | | | [address];[place] | | | | | | [address] | | | | + + + + + + + + | Specimen | + + | | + + + + + + + | Performing | Address | City/State/Zipcode | Phone Number | | Organization | | | | + + + + + | [facility] | [address] | [place] [address] | [phone] | + + + + + XR [...] + | Johnson, Rad Results In - 04/13/2019 4:45 PM PST [...] catheterization with right leg runoff4. Right SFA HYDRAULIC PLUMBER HELPER | | | crossing and atherectomy using Bard 14 S crossing catheter SURGEON: | | | Simba Cheng MD REPAIRER: None ANESTHESIA: Moderate sedation and local | [...] | | identified and brought to the [facility]. The patient was placed supine | | [...] sized to a 4 | | | [place] sheath. A Omni flush catheter was then [...] inserted over the catheter and the 4 [place] sheath was | | | removed. A 7 [place] destination sheath was then inserted over the [...] | | | POC | performed at [facility];[address] | | LABORATORY | | | | [address];[place] | | | | | | [address] | | | | + + + + + + + + | Specimen | + + | | + + + + + + + | Performing | Address | City/State/Zipcode | Phone Number | | Organization | | | | + + + + + | [facility] | [address] | [place] [address] | [phone] | + + + + + POC Glucose (04/13/2019 7:59 AM PST) + + + + + + | Component | Value | Ref Range | Performed | Pathologist | | | | | At | Signature | + + + + + + | Glucose, | 124 (H)Comment: Testing | 65 - 99 mg/dL | [facility] | | | POC | performed at [facility];[address] | | LABORATORY | | | | [address];[place] | | | | | | [address] | | | | + + + + + + + + | Specimen | + + | | + + + + + + + | Performing | Address | City/State/Zipcode | Phone Number | | Organization | | | | + + + + + | [facility] | [address] | [place] [address] | [phone] | + + + + + Basic [...] 8.2 (L) | 8.5 - 10.5 | [facility] | | | | | mg/dL | LABORATORY | | + + + + + + | Estimated | >60Comment: GFR <60: | >60 | [facility] | | | GFR | CHRONIC KIDNEY [...] W | | | | | | [facility], | | | | | | [place] [address] | | | | + + + + + + + + | Specimen | + + | Blood | + + + + + + + | Performing | Address | City/State/Zipcode | Phone Number | | Organization | | | | + + + + + | [facility] | [address] | [place] [address] | [phone] | + + + + + CBC [...] | | | | | performed at [facility], [address] | | | | | | [facility], | | | | | | [place] [address] | | | | | |MICRO | | | | | |NORMAL PLT MORPH | | | | | |Testing performed at [facility], [address] [facility], [place] [address] | | | | | | | | | | + + +---- + + + + + | Specimen | + + | Blood | + + + + + + + | Performing | Address | City/State/Zipcode | Phone Number | | Organization | | | | + + + + + | [facility] | [address] | [place] [address] | [phone] | + + + + + POC [...] | | | POC | performed at [facility];[address] | | LABORATORY | | | | [address];[place], [place] | | | | | | [address] | | | | + + + + + + + + | Specimen | + + | | + + + + + + + | Performing | Address | City/State/Zipcode | Phone Number | | Organization | | | | + + + + + | [facility] | [address] | [place] [address] | [phone] | + + + + + POC Glucose (04/12/2019 9:14 PM PST) + + + + + + | Component | Value | Ref Range | Performed | Pathologist | | | | | At | Signature | + + + + + + | Glucose, | 183 (H)Comment: Testing | 65 - 99 mg/dL | [facility] | | | POC | performed at [facility];[address] | | LABORATORY | | | | [address];[place] | | | | | | [address] | | | | + + + + + + + + | Specimen | + + | | + + + + + + + | Performing | Address | City/State/Zipcode | Phone Number | | Organization | | | | + + + + + | [facility] | [address] | [place] [address] | [phone] | + + + + + POC Glucose (04/12/2019 4:28 PM PST) + + + + + + | Component | Value | Ref Range | Performed | Pathologist | | | | | At | Signature | + + + + + + | Glucose, | 211 (H)Comment: Testing | 65 - 99 mg/dL | [facility] | | | POC | performed at [facility];[address] | | LABORATORY | | | | [address];[place] | | | | | | [address] | | | | + + + + + + + + | Specimen | + + | | + + + + + + + | Performing | Address | City/State/Zipcode | Phone Number | | Organization | | | | + + + + + | [facility] | [address] | [place] [address] | [phone] | + + + + + POC [...] | | | POC | performed at [facility];[address] | | LABORATORY | | | | [address];[place] | | | | | | [address] | | | | + + + + + + + + | Specimen | + + | | + + + + + + + | Performing | Address | City/State/Zipcode | Phone Number | | Organization | | | | + + + + + | [facility] | [address] | [place] [address] | [phone] | + + + + + POC [...] | | | POC | performed at [facility];[address] | | LABORATORY | | | | [address];[place] | | | | | | [address] | | | | + + + + + + + + | Specimen | + + | | + + + + + + + | Performing | Address | City/State/Zipcode | Phone Number | | Organization | | | | + + + + + | [facility] | [address] [facility] | [place] [address] | [phone] | + + + + + Basic [...] | | | | | performed at [facility], [address] | | | | | | [facility], | | | | | | [place] [address] | | | | + + + + + + + + | Specimen | + + | Blood | + + + + + + + | Performing | Address | City/State/Zipcode | Phone Number | | Organization | | | | + + + + + | [facility] | [address] | [place] [address] | [phone] | + + + + + CBC [...] | | | | | performed at [facility], [address] | | | | | | [facility], | | | | | | [place] [address] | | | | | |MICRO | | | | | |NORMAL PLT MORPH | | | | | |Testing performed at [facility], [address] [facility], [place] [address] | | | | | | | | | | + + +---- + + + + + | Specimen | + + | Blood | + + + + + + + | Performing | Address | City/State/Zipcode | Phone Number | | Organization | | | | + + + + + | [facility] | [address] | [place] [address] | [phone] | + + + + + POC Glucose (04/11/2019 9:20 PM PST) + + + + + + | Component | Value | Ref Range | Performed | Pathologist | | | | | At | Signature | + + + + + + | Glucose, | 199 (H)Comment: Testing | 65 - 99 mg/dL | [facility] | | | POC | performed at [facility];[address] | | LABORATORY | | | | [address];[place] | | | | | | [address] | | | | + + + + + + + + | Specimen | + + | | + + + + + + + | Performing | Address | City/State/Zipcode | Phone Number | | Organization | | | | + + + + + | [facility] | [address] | [place] [address] | [phone] | + + + + + POC [...] | | | POC | performed at [facility];[address] | | LABORATORY | | | | [address];[place], [place] | | | | | | [address] | | | | + + + + + + + + | Specimen | + + | | + + + + + + + | Performing | Address | City/State/Zipcode | Phone Number | | Organization | | | | + + + + + | [facility] | [address] | [place] [address] | [phone] | + + + + + POC [...] | | | POC | performed at [facility];[address] | | LABORATORY | | | | [address];[place], [place] | | | | | | [address] | | | | + + + + + + + + | Specimen | + + | | + + + + + + + | Performing | Address | City/State/Zipcode | Phone Number | | Organization | | | | + + + + + | [facility] | [address] | [place] [address] | [phone] | + + + + + IR [...] x 150 mm | | | angioplasty . Left SFA stenting using 7 x 120 mm | | | self-expanding stent SURGEON: Simba Cheng MD REPAIRER: None ANESTHESIA: | | | Moderate sedation [...] | | identified and brought to the [facility]. The patient was placed supine | | [...] sized to a 4 | | | [place] sheath. A Omni flush catheter was then [...] inserted over the catheter and the 4 [place] sheath was | | | removed. A 7 [place] destination sheath was then inserted over the [...] using a | | | Glidewire and [place] catheter. A 0.009 wire was then passed [...] crossed using a | | |Glidewire and [place] catheter. A 0.009 wire was then passed [...] Testing | 65 - 99 mg/dL | [facility] | | | POC | performed at [facility];[address] | | LABORATORY | | | | [address];[place] | | | | | | [address] | | | | + + + + + + + + | Specimen | + + | | + + + + + + + | Performing | Address | City/State/Zipcode | Phone Number | | Organization | | | | + + + + + | [facility] | [address] | [place] [address] | [phone] | + + + + + B Type Natriuretic Peptide (04/11/2019 5:48 AM PST) + + + + + + | Component | Value | Ref Range | Performed | Pathologist | | | | | At | Signature | + + + + + + | BNP | 220.45 (H)Comment: | 0 - 100 pg/mL | [facility] | | | | Testing performed at | | LABORATORY | | | | [facility];[address];[place] [address] | | | | + + + + + + + + | Specimen | + + | Blood | + + + + + + + | Performing | Address | City/State/Zipcode | Phone Number | | Organization | | | | + + + + + | [facility] | [address] | [place] [address] | [phone] | + + + + + Basic [...] | >60Comment: GFR <60: | >60 | [facility] | | | GFR | CHRONIC KIDNEY [...] | | | | | | MDRD IDIL traceable | | | | | | equation.Testing | | | | | | performed at [facility], [address] | | | | | | [facility], | | | | | | [place] [address] | | | | + + + + + + + + | Specimen | + + | Blood | + + + + + + + | Performing | Address | City/State/Zipcode | Phone Number | | Organization | | | | + + + + + | [facility] | [address] | [place] [address] | [phone] | + + + + + CBC [...] | | | | | | at [facility], [address] | | | | | | [employer], | | | | | | [place] [address] | | | | | |Testing performed at [facility], [address] [facility] [place] [address] | | | | | | | | | | + + +---- + + + + + | Specimen | + + | Blood | + + + + + + + | Performing | Address | City/State/Zipcode | Phone Number | | Organization | | | | + + + + + | [facility] | [address] | [place] [address] | [phone] | + + + + + POC Glucose (04/10/2019 9:22 PM PST) + + + + + + | Component | Value | Ref Range | Performed | Pathologist | | | | | At | Signature | + + + + + + | Glucose, | 127 (H)Comment: Testing | 65 - 99 mg/dL | [facility] | | | POC | performed at [facility];[address] | | LABORATORY | | | | [address];[place] | | | | | | [address] | | | | + + + + + + + + | Specimen | + + | | + + + + + + + | Performing | Address | City/State/Zipcode | Phone Number | | Organization | | | | + + + + + | [facility] | [address] | [place] [address] | [phone] | + + + + + POC [...] | | | POC | performed at [facility];[address] | | LABORATORY | | | | [address];[place] | | | | | | [address] | | | | + + + + + + + + | Specimen | + + | | + + + + + + + | Performing | Address | City/State/Zipcode | Phone Number | | Organization | | | | + + + + + | [facility] | [address] | [place] [address] | [phone] | + + + + + [place] [...] + | Eliel Ornelas Results In - 04/10/2019 12:13 PM PST | | ULTRASOUND [...] | | | POC | performed at [facility];[address] | | LABORATORY | | | | [address];[place] | | | | | | [address] | | | | + + + + + + + + | Specimen | + + | | + + + + + + + | Performing | Address | City/State/Zipcode | Phone Number | | Organization | | | | + + + + + | [facility] | [address] | [place] [address] | [phone] | + + + + + CBC [...] [facility] | | | | performed at [facility], [address] | | LABORATORY | | | | [address], | | | | | | [place] [address] | | | | + + + + + + + + | Specimen | + + | Blood | + + + + + + + | Performing | Address | City/State/Zipcode | Phone Number | | Organization | | | | + + + + + | [facility] | [address] | [place] [address] | [phone] | + + + + + POC [...] | | | POC | performed at [facility];[address] | | LABORATORY | | | | [address];[place] | | | | | | [address] | | | | + + + + + + + + | Specimen | + + | | + + + + + + + | Performing | Address | City/State/Zipcode | Phone Number | | Organization | | | | + + + + + | [facility] | [address] | [place] [address] | [phone] | + + + + + POC Glucose (04/09/2019 5:06 PM PST) + + + + + + | Component | Value | Ref Range | Performed | Pathologist | | | | | At | Signature | + + + + + + | Glucose, | 169 (H)Comment: Testing | 65 - 99 mg/dL | [facility] | | | POC | performed at [facility];[address] | | LABORATORY | | | | [address];[place] | | | | | | [address] | | | | + + + + + + + + | Specimen | + + | | + + + + + + + | Performing | Address | City/State/Zipcode | Phone Number | | Organization | | | | + + + + + | [facility] | [address] | [place] [address] | [phone] | + + + + + POC [...] | | | POC | performed at [facility];[address] | | LABORATORY | | | | [address];[place] | | | | | | [address] | | | | + + + + + + + + | Specimen | + + | | + + + + + + + | Performing | Address | City/State/Zipcode | Phone Number | | Organization | | | | + + + + + | [facility] | [address] | [place] [address] | [phone] | + + + + + XR Chest AP Portable (04/09/2019 9:02 AM PST) + + | Specimen | + + | | + + + + + | Impressions | Performed At | + + + | Hypoventilatory exam, it would be difficult to exclude an element of | [facility] | | congestive failure. Signed by: Madison Solis [place] | | | Sign Date/Time: 04/09/2019 9:25 [...] + | Johnson, Rad Results In - 04/09/2019 9:29 AM PST | | CHEST [...] | | | | Signed by: Madison Solis, Mitch | | Sign Date/Time: 04/09/2019 9:25 AM [...] | | | Urine | performed at [facility], [address] | | LABORATORY | | | [...] | + + + + + | [facility] | [address] | [place] [address] | [phone] | + + + + + Urinalysis, [...] - 1.030 | [facility] | | | [place], | | | LABORATORY | | | [...] | + + + + + | [facility] | [address] | [place] [address] | [phone] | + + + + + Sedimentation Rate (04/09/2019 6:16 AM PST) + + + + + + | Component | Value | Ref Range | Performed | Pathologist | | | | | At | Signature | + + + + + + | ESR | 91 (H)Comment: Testing | 0 - 20 mm/Hr | [facility] | | | | performed at [facility], [address] | | LABORATORY | | | | [address], | | | | | | [place] [address] | | | | + + + + + + + + | Specimen | + + | Blood | + + + + + + + | Performing | Address | City/State/Zipcode | Phone Number | | Organization | | | | + + + + + | [facility] | [address] | [place] [address] | [phone] | + + + + + CBC [...] MPV | 8.1Comment: Testing | fl | [facility] | | | | performed at [facility], [address] | | LABORATORY | | | | [facility] [address], | | | | | | [place] [address] | | | | + + + + + + + + | Specimen | + + | Blood | + + + + + + + | Performing | Address | City/State/Zipcode | Phone Number | | Organization | | | | + + + + + | [facility] | [address] | [place] [address] | [phone] | + + + + + Comprehensive [...] 18 | 10 - 65 U/L | [facility] [...] | | | | | | MDRD IDIL traceable | | | | | | equation.Testing | | | | | | performed at [facility], [address] | | | | | | [facility], | | | | | | [place] [address] | | | | + + + + + + + + | Specimen | + + | Blood | + + + + + + + | Performing | Address | City/State/Zipcode | Phone Number | | Organization | | | | + + + + + | [facility] | [address] | [place] [address] | [phone] | + + + + + POC Glucose (04/08/2019 10:09 PM PST) + + + + + + | Component | Value | Ref Range | Performed | Pathologist | | | | | At | Signature | + + + + + + | Glucose, | 168 (H)Comment: Testing | 65 - 99 mg/dL | [facility] | | | POC | performed at [facility];[address] | | LABORATORY | | | | [address];[place] | | | | | | [address] | | | | + + + + + + + + | Specimen | + + | | + + + + + + + | Performing | Address | City/State/Zipcode | Phone Number | | Organization | | | | + + + + + | [facility] | [address] | [place] [address] | [phone] | + + + + + Fecal Hemoglobin (04/08/2019 7:27 PM PST) + + + + + + | Component | Value | Ref Range | Performed | Pathologist | | | | | At | Signature | + + + + + + | FECAL | NEGATIVEComment: Testing | NEG | [facility] | | | OCCULT BLD | performed at [facility];[address] | | LABORATORY | | | | [address];[place], [place] | | | | | | [address] | | | | + + + + + + + + | Specimen | + + | Stool - Stool | | specimen (specimen) | + + + + + + + | Performing | Address | City/State/Zipcode | Phone Number | | Organization | | | | + + + + + | [facility] | [address] | [place] [address] | [phone] | + + + + + POC [...] | | | POC | performed at [facility];[address] | | LABORATORY | | | | [address];[place] | | | | | | [address] | | | | + + + + + + + + | Specimen | + + | | + + + + + + + | Performing | Address | City/State/Zipcode | Phone Number | | Organization | | | | + + + + + | [facility] | [address] | [place] [address] | [phone] | + + + + + XR Abdomen AP (04/08/2019 2:41 PM PST) + + | Specimen | + + | | + + + + + | Impressions | Performed At | + + + | Negative abdomen. Signed by: Madison Acosta C. Mark Sign | [facility] | | Date/Time: [...] + + | Johnson, Eliel Results In - 04/08/2019 2:56 PM PST | | ABDOMEN [...] | | | | Signed by: Madison Acosta, Ling Luis | | Sign Date/Time: 04/08/2019 2:53 PM [...] | | | POC | performed at [facility];[address] | | LABORATORY | | | | [address];[place] | | | | | | [address] | | | | + + + + + + + + | Specimen | + + | | + + + + + + + | Performing | Address | City/State/Zipcode | Phone Number | | Organization | | | | + + + + + | [facility] | [address] | [place] [address] | [phone] | + + + + + XR [...] + | Johnson, Rad Results In - 04/08/2019 9:35 AM PST | | CHEST [...] | | | | Signed by: Madison Acosta, Ling Luis | | Sign Date/Time: 04/08/2019 9:32 AM [...] Testing | 65 - 99 mg/dL | [facility] | | | POC | performed at [facility];[address] | | LABORATORY | | | | [address];[place] | | | | | | [address] | | | | + + + + + + + + | Specimen | + + | | + + + + + + + | Performing | Address | City/State/Zipcode | Phone Number | | Organization | | | | + + + + + | [facility] | [address] | [place] [address] | [phone] | + + + + + B [...] | | LABORATORY | | | | [facility];[address];[place] [address] | | | | + + + + + + + + | Specimen | + + | Blood | + + + + + + + | Performing | Address | City/State/Zipcode | Phone Number | | Organization | | | | + + + + + | [facility] | [address] | [place] [address] | [phone] | + + + + + CBC [...] | | | | | [place] [address] | | | | + + + + + + + + | Specimen | + + | Blood | + + + + + + + | Performing | Address | City/State/Zipcode | Phone Number | | Organization | | | | + + + + + | [facility] | [address] | [place] [address] | [phone] | + + + + + Comprehensive [...] 20 | 10 - 65 U/L | [facility] [...] | | | | | performed at [facility], [address] | | | | | | [facility], | | | | | | [place] [address] | | | | + + + + + + + + | Specimen | + + | Blood | + + + + + + + | Performing | Address | City/State/Zipcode | Phone Number | | Organization | | | | + + + + + | [facility] | [address] | [place] [address] | [phone] | + + + + + POC [...] | | | POC | performed at [facility];[address] | | LABORATORY | | | | [address];[place] | | | | | | [address] | | | | + + + + + + + + | Specimen | + + | | + + + + + + + | Performing | Address | City/State/Zipcode | Phone Number | | Organization | | | | + + + + + | [facility] | [address] [facility] | [place] [address] | [phone] | + + + + + POC [...] | | | POC | performed at [facility];[address] | | LABORATORY | | | | [address];[place] | | | | | | [address] | | | | + + + + + + + + | Specimen | + + | | + + + + + + + | Performing | Address | City/State/Zipcode | Phone Number | | Organization | | | | + + + + + | [facility] | [address] | [place] [address] | [phone] | + + + + + POC Glucose (04/07/2019 12:40 PM PST) + + + + + + | Component | Value | Ref Range | Performed | Pathologist | | | | | At | Signature | + + + + + + | Glucose, | 252 (H)Comment: Testing | 65 - 99 mg/dL | [facility] | | | POC | performed at [facility];[address] | | LABORATORY | | | | [address];[place] | | | | | | [address] | | | | + + + + + + + + | Specimen | + + | | + + + + + + + | Performing | Address | City/State/Zipcode | Phone Number | | Organization | | | | + + + + + | [facility] | [address] | [place] [address] | [phone] | + + + + + XR [...] + | Johnson, Rad Results In - 04/07/2019 1:47 PM PST | | RIGHT [...] | | | POC | performed at [facility];[address] | | LABORATORY | | | | [address];[place] | | | | | | [address] | | | | + + + + + + + + | Specimen | + + | | + + + + + + + | Performing | Address | City/State/Zipcode | Phone Number | | Organization | | | | + + + + + | [facility] | [address] | [place] [address] | [phone] | + + + + + Magnesium (04/07/2019 5:02 AM PST) + + + + + + | Component | Value | Ref Range | Performed | Pathologist | | | | | At | Signature | + + + + + + | Magnesium | 2.1Comment: Testing | 1.7 - 2.4 mg/dL | [facility] | | | | performed at [facility], [address] | | LABORATORY | | | | [address], | | | | | | [place] [address] | | | | + + + + + + + + | Specimen | + + | Blood | + + + + + + + | Performing | Address | City/State/Zipcode | Phone Number | | Organization | | | | + + + + + | [facility] | [address] | [place] [address] | [phone] | + + + + + CBC [...] MPV | 7.8Comment: Testing | fl | [facility] | | | | performed at [facility];[address] | | LABORATORY | | | | [address];[place], [place] | | | | | | [address] | | | | + + + + + + + + | Specimen | + + | Blood | + + + + + + + | Performing | Address | City/State/Zipcode | Phone Number | | Organization | | | | + + + + + | [facility] | [address] | [place] [address] | [phone] | + + + + + Comprehensive [...] | >60Comment: GFR <60: | >60 | [facility] | | | GFR | CHRONIC KIDNEY [...] | | | | | | MDRD IDIL traceable | | | | | | equation.Testing | | | | | | performed at [facility], [address] | | | | | | [facility], | | | | | | [place] [address] | | | | + + + + + + + + | Specimen | + + | Blood | + + + + + + + | Performing | Address | City/State/Zipcode | Phone Number | | Organization | | | | + + + + + | [facility] | [address] | [place] [address] | [phone] | + + + + + Iron, Total (04/07/2019 5:02 AM PST) + + + + + + | Component | Value | Ref Range | Performed | Pathologist | | | | | At | Signature | + + + + + + | Iron | 23 (L)Comment: Testing | 45 - 190 ug/dL | [facility] | | | | performed at [facility], [address] | | LABORATORY | | | | [address], | | | | | | [place] [address] | | | | + + + + + + + + | Specimen | + + | Blood | + + + + + + + | Performing | Address | City/State/Zipcode | Phone Number | | Organization | | | | + + + + + | [facility] | [address] | [place] [address] | [phone] | + + + + + POC [...] | | | POC | performed at [facility];[address] | | LABORATORY | | | | [address];[place] | | | | | | [address] | | | | + + + + + + + + | Specimen | + + | | + + + + + + + | Performing | Address | City/State/Zipcode | Phone Number | | Organization | | | | + + + + + | [facility] | [address] | [place] [address] | [phone] | + + + + + POC [...] | | | POC | performed at [facility];[address] | | LABORATORY | | | | [address];[place], [place] | | | | | | [address] | | | | + + + + + + + + | Specimen | + + | | + + + + + + + | Performing | Address | City/State/Zipcode | Phone Number | | Organization | | | | + + + + + | [facility] | [address] | [place] [address] | [phone] | + + + + + Culture, Wound, Superficial (04/06/2019 3:46 PM PST) + + + + + + | Component | Value | Ref Range | Performed | Pathologist | | | | | At | Signature | + + + + + + | Special | RIGHT FOOT | | [facility] | | | Requests | | | LABORATORY | | + + + + + + | Special | Testing performed at | | [facility] | | | Requests | [facility];[address] [facility] | | LABORATORY | | | | [address];[place] [address] | | | | + + + + + + | RESULT | 1+NORMAL SKIN CELSA | | [facility] | | | | ISOLATED | | LABORATORY | | | | | | | | + + + + + + | RESULT | NO FURTHER WORKUP | | [facility] | | | | | | LABORATORY | | + + + + + + | RESULT | Testing performed at | | [facility] | | | | TCL, [address] [facility] | | LABORATORY | | | | [place], [place] | | | | | | [id number]: Testing | | | | | | performed at [facility], [address] | | | | | [address], [place] | | | | | | [address] | | | | + + + + + + + + | Specimen | + + | Body Fluid - Entire | | heel (body | | structure) | + + + + + + + | Performing | Address | City/State/Zipcode | Phone Number | | Organization | | | | + + + + + | [facility] | [address] | [place] [address] | [phone] | + + + + + Culture, [...] | [facility] | | | Requests | [facility];[address] [place] [address] | | LABORATORY | | | | Blvd;[place] [address] | | | | + + + [...] Comment: Testing | | | performed at [facility], | | | [address], | | | [place] [address] | +---+ + + + + + + | Performing | Address | City/State/Zipcode | Phone Number | | Organization | | | | + + + + + | [facility] | [address] | [place] [address] | [phone] | + + + + + Ferritin (04/06/2019 2:30 PM PST) + + + + + + | Component | Value | Ref Range | Performed | Pathologist | | | | | At | Signature | + + + + + + | Ferritin | 62Comment: Testing | 11 - 450 ng/mL | [facility] | | | | performed at [facility], [address] | | LABORATORY | | | | [address], | | | | | | [place] [address] | | | | + + + + + + + + | Specimen | + + | Blood | + + + + + + + | Performing | Address | City/State/Zipcode | Phone Number | | Organization | | | | + + + + + | [facility] | [address] | [place] [address] | [phone] | + + + + + Vitamin [...] | 12.3Comment: Testing | >5.4 ng/mL | [facility] | | | | performed at [facility], [address] | | LABORATORY | | | | [address], | | | | | | [place] [address] | | | | + + + + + + + + | Specimen | + + | Blood | + + + + + + + | Performing | Address | City/State/Zipcode | Phone Number | | Organization | | | | + + + + + | [facility] | [address] | [place] [address] | [phone] | + + + + + Troponin [...] at | | | | | | [facility];[address] [facility] | | | | | | [facility];[place] [address] | | | | + + + + + + + + | Specimen | + + | Blood | + + + + + + + | Performing | Address | City/State/Zipcode | Phone Number | | Organization | | | | + + + + + | [facility] | [address] | [place] [address] | [phone] | + + + + + POC Glucose (04/06/2019 11:28 AM PST) + + + + + + | Component | Value | Ref Range | Performed | Pathologist | | | | | At | Signature | + + + + + + | Glucose, | 175 (H)Comment: Testing | 65 - 99 mg/dL | [facility] | | | POC | performed at [facility];[address] | | LABORATORY | | | | [address];[place] | | | | | | [address] | | | | + + + + + + + + | Specimen | + + | | + + + + + + + | Performing | Address | City/State/Zipcode | Phone Number | | Organization | | | | + + + + + | [facility] | [address] | [place] [address] | [phone] | + + + + + VAS [...] | | | POC | performed at [facility];[address] | | LABORATORY | | | | [address];[place] | | | | | | [address] | | | | + + + + + + + + | Specimen | + + | | + + + + + + + | Performing | Address | City/State/Zipcode | Phone Number | | Organization | | | | + + + + + | [facility] | [address] | [place] [address] | [phone] | + + + + + Troponin I (04/06/2019 8:31 AM PST) + + + + + + | Component | Value | Ref Range | Performed | Pathologist | | | | | At | Signature | + + + + + + | Troponin I | 0.19 (H)Comment: 0.04 | 0.00 - 0.04 | [facility] | | | | ng/mL or less [...] at | | | | | | [facility];[address] [place] [address] | | | | | | [facility];[place] [address] | | | | + + + + + + + + | Specimen | + + | Blood | + + + + + + + | Performing | Address | City/State/Zipcode | Phone Number | | Organization | | | | + + + + + | [facility] | [address] | [place] [address] | [phone] | + + + + + XR [...] | | | | Signed by: Madison Houser, Toby | | Sign Date/Time: 04/06/2019 6:40 AM [...] Special | Testing performed at | | [facility] | | | Requests | [facility];[address] | | LABORATORY | | | | [address];[place] [address] | | | | + + + + + + | RESULT | NO GROWTH 6 DAYS | | [facility] | | | | | | LABORATORY | | + + + + + + | RESULT | Testing performed at | | [facility] | | | | TCL, [address] | | LABORATORY | | | | [place], [place] | | | | | | [address]Eceegxr: Testing | | | | | | performed at [facility], [address] | | | | | [address], [place], [place] | | | | | | [address] | | | | + + + [...] [facility] | [address] | [place] [address] | [phone] | + + + + + Culture, Blood (04/06/2019 3:31 AM PST) + + + + + + | Component | Value | Ref Range | Performed | Pathologist | | | | | At | Signature | + + + + + + | Special | L WRIST | | [facility] | | | Requests | | | LABORATORY | | + + + + + + | Special | Testing performed at | | [facility] | | | Requests | [facility];[address] | | LABORATORY | | | | [address];[place] [address] | | | | + + + + + + | RESULT | NO GROWTH 6 DAYS | | [facility] | | | | | | LABORATORY | | + + + + + + | RESULT | Testing performed at | | [facility] | | | | TCL, [address] [facility] | | LABORATORY | | | | [place], [place] | | | | | | [id number]: Testing | | | | | | performed at [facility], [facility] | | | | | | [address], [place] | | | | | | [address] | | | | + + + + + + + + | Specimen | + + | Blood - Peripheral | | blood specimen | | (specimen) | + + + + + + + | Performing | Address | City/State/Zipcode | Phone Number | | Organization | | | | + + + + + | [facility] | [address] | [place] [address] | [phone] | + + + + + B Type Natriuretic Peptide (04/06/2019 2:48 AM PST) + + + + + + | Component | Value | Ref Range | Performed | Pathologist | | | | | At | Signature | + + + + + + | BNP | 683.69 (H)Comment: | 0 - 100 pg/mL | [facility] | | | | Testing performed at | | LABORATORY | | | | [facility];[address] | | | | [address];[place] [address] | | | | + + + + + + + + | Specimen | + + | | + + + + + + + | Performing | Address | City/State/Zipcode | Phone Number | | Organization | | | | + + + + + | [facility] | [address] | [place] [address] | [phone] | + + + + + Lipid Panel (04/06/2019 2:48 AM PST) + + + + + + | Component | Value | Ref Range | Performed | Pathologist | | | | | At | Signature | + + + + + + | Cholesterol | 55 | <200 mg/dL | [facility] | | | | [...] | 13Comment: Testing | <100 mg/dL | [facility] | | | Calculated | performed at [facility], [address] | | LABORATORY | | | | [address], | | | | | | [place] [address] | | | | + + + + + + + + | Specimen | + + | Blood | + + + + + + + | Performing | Address | City/State/Zipcode | Phone Number | | Organization | | | | + + + + + | [facility] | [address] | [place] [address] | [phone] | + + + + + Hemoglobin A1C (04/06/2019 2:48 AM PST) + + + + + + | Component | Value | Ref Range | Performed | Pathologist | | | | | At | Signature | + + + + + + | Hemoglobin | 7.8 (H)Comment: HbA1c | 4.0 - 6.0 % | [facility] | | | A1c | method is [...] | 177 (H)Comment: | <154 mg/dL | [facility] | | | Average | Estimated Average | | LABORATORY | | | Glucose | Glucose calculated from | | | | | | hemoglobin A1c by use of | | | | | | the ADArecommended | | | | | | formula.Testing | | | | | | performed at [facility], [address] | | | | | | [address], | | | | | | [place] [address] | | | | + + + + + + + + | Specimen | + + | Blood | + + + + + + + | Performing | Address | City/State/Zipcode | Phone Number | | Organization | | | | + + + + + | [facility] | [address] | [place] [address] | [phone] | + + + + + Magnesium (04/06/2019 2:48 AM PST) + + + + + + | Component | Value | Ref Range | Performed | Pathologist | | | | | At | Signature | + + + + + + | Magnesium | 1.4 (L)Comment: Testing | 1.7 - 2.4 mg/dL | [facility] | | | | performed at [facility], [address] | | LABORATORY | | | | [address], | | | | | | [place] [address] | | | | + + + + + + + + | Specimen | + + | Blood | + + + + + + + | Performing | Address | City/State/Zipcode | Phone Number | | Organization | | | | + + + + + | [facility] | [address] | [place] [address] | [phone] | + + + + + Comprehensive [...] 21 | 10 - 65 U/L | [facility] [...] | | | | | performed at [facility], [address] | | | | | | [facility], | | | | | | [place] [address] | | | | + + + + + + + + | Specimen | + + | Blood | + + + + + + + | Performing | Address | City/State/Zipcode | Phone Number | | Organization | | | | + + + + + | [facility] | [address] | [place] [address] | [phone] | + + + + + CBC [...] | | | | | | at [facility];[address] | [address] | | [address];[place] [address] | | | | | |NORMAL PLT MORPH | | | | | |Testing performed at [facility];[address];[place] [address] | | | | | | | | | | + + + + + + + + | Specimen | + + | Blood | + + + + + + + | Performing | Address | City/State/Zipcode | Phone Number | | Organization | | | | + + + + + | [facility] | [address] | [place] [address] | [phone] | + + + + + Ev RENE (04/06/2019 2:48 AM PST) + + + + + + | Component | Value | Ref Range | Performed | Pathologist | | | | | At | Signature | + + + + + + | INR | 1.2Comment: REFERENCE | | [facility] | | | | RANGE:0.9 - 1.2 [...] | | | | | performed at [facility] | | | | | | [address];[place], [place] | | | | | | [address] | | | | + + + + + + + + | Specimen | + + | Blood | + + + + + + + | Performing | Address | City/State/Zipcode | Phone Number | | Organization | | | | + + + + + | [facility] | [address] | [place] [address] | [phone] | + + + + + PTT (04/06/2019 2:48 AM PST) + + + + + + | Component | Value | Ref Range | Performed | Pathologist | | | | | At | Signature | + + + + + + | PTT | 34 (H)Comment: Testing | 23 - 32 seconds | [facility] | | | | performed at [facility];[address] | | LABORATORY | | | | [address];[place] | | | | | | [address] | | | | + + + + + + + + | Specimen | + + | Blood | + + + + + + + | Performing | Address | City/State/Zipcode | Phone Number | | Organization | | | | + + + + + | [facility] | [address] | [place] [address] | [phone] | + + + + + Troponin [...] at | | | | | | [facility];[address] [place] [address] | | | | | | [facility];[place] [address] | | | | + + + + + + + + | Specimen | + + | Blood | + + + + + + + | Performing | Address | City/State/Zipcode | Phone Number | | Organization | | | | + + + + + | [facility] | [address] | [place] [address] | [phone] | + + + + + documented in this encounter Visit Diagnoses + + | Diagnosis | + + | Insulin dependent diabetes [...] unspecified, affecting unspecified side | + + documented in this encounter [...] PST | | | | +-------+ +-------+---+---+ + +---+ | | | [...] | | | | | dose on Tue04/12/19 at 0900 | | AM PST | [...] PST | | | | +-------+ +-------+---+---+ + +---+ | | | [...] | | | | | dose on [facility] 04/12/19 at 2100 | | | | [...] | | | | +-------+ +--------+---+ + + +---+ | | | + [...] | Abdomen- | | SOLOSTAR) injection (pen) 30 | | 20 9:55 | | | [...] | +---+---+ + +-------+ + +---+---+ | lidocaine (XYLOCAINE) 2% jelly | Given | 04/10/19 | 1 | | | | (uro-jet) PRN, Starting Tue | | 20 6:42 | Applicat | | | | 04/10/19 at 1842, Intra-op | | PM PST | ion | | | + +-------+ + +---+---+ [...] lozenge 1 | | | lozenge 1 lozenge, Buccal, EVERY | | | 2 HOURS PRN, Sore Throat, | | | Starting Digna 04/12/19 at 2120 | | + +---+ [...] | + +---+ + +-------+ +------+---+---+ | ondansetron (ZOFRAN) injection [...] | | | | + +-------+ +------+---+---+ + +---+ | | | + +---+ [...] + +---+ + +-------+ + +---+---+ | 27-0.8 mg [...] + +---+ + +-------+ + +---+---+ | psyllium (METAMUCIL [...] | | | | | | | 2/3 1400 dose until this trough | | [...] | | | | + + +--------+-------+---+ + +---+ | | | + +---+ | vancomycin per pharmacy | | | PHARMACY CONSULT, Starting Wed | | | 04/11/19 at 0952, Indications: | | | Methicillin-Resistant | | | Staphylococcus Aureus Infection | | + +---+ | | | + +---+ documented in this encounter Additional Health Concerns + + + + | Infection | Noted Time | Resolved Time | + + + + | Methicillin-resistant Staphylococcus aureus | 04/11/2019 2:01 PM | | | | PST | | + + + + documented as of this encounter
--- OUTSIDE RECORDS SUMMARY | ~2019-08-08 | XMS | Encounter Summary ---
Demographics + + + | Address | [address] | | | [place] [address] | + + + | Home Phone | | + + + | Preferred Language | Unknown | + + + | Marital Status | | + + + | Adventist Affiliation | 1076 | + + + [...] + | Jessica Shepard | ECON | [address] | | | | | [place] | | | | | [address] | | + + + + + | Bel Solis | ECON | Unknown | | + + + + + Care Team Providers + +------+ + | Care Creative Consultant Name | Role | Phone | + +------+ + | Jamar Manuel MD | PCP | | + +------+ + Reason for Visit + + + | Reason | Comments | + + + | Follow-up | post bypass | + + + Encounter Details +--------+---------+ + + + | Date | Type | Department | Care Team | Description | +--------+---------+ + + + | 05/08/ | Office | [facility] | Mika Tim, DNP | Peripheral vascular | | 2020 | Visit | VASCULAR SURGERY | [address] | disease (HCC) | | | | [address] | [place] | (Primary Dx) | | | | [place] | [address] | | | | | [address] | | | | | | [phone] | Bhanu Seaman, | | | | | | FRANCY [address] | | | | | | [address] | | | | | | [place] [address] | | | | | | [phone] | | | | | | | | +--------+---------+ + + + [...] this encounter Last Filed Vital Signs + +---------+ + + | Vital Sign | Reading | Time Taken | Comments | + +---------+ + + | Blood Pressure | - | - | | + +---------+ + + | Pulse | 73 | 05/08/2019 9:44 AM | | | | | PST | | + +---------+ + + | Temperature | - | - | | + +---------+ + + | Respiratory Rate | - | - | | + +---------+ + + | Oxygen Saturation | 96% | 05/08/2019 9:44 AM | | | | | PST | | + +---------+ + + | Inhaled Oxygen | - | - | | | Concentration | | | | + +---------+ + + | Weight | - | - | | + +---------+ + + | Height | - | - | | + +---------+ + + | Body Mass Index | - | - | | + +---------+ + + documented in this encounter Functional [...] + documented as of this encounter Progress Bhanu Maguire PA-C - 05/08/2019 9:30 AM [facility] [address] [place] [address] Office: [phone] DATE OF VISIT: 05/08/2019 PATIENT NAME: Reagan Shepard : 1945; AGE: 74 y.o.; Sex:M PHONE NUMBER: ; ; PROVIDER: Bhanu Seaman PA-C PRIMARY CARE / REFERRING PHYSICIAN: Mika Tim DNP / Jamar Manuel MD / [address] / [place] [address] REASON FOR EVALUATION / CHIEF COMPLAINT: Vascular Surgery Postoperative Visit for PAD The patient presents today for a Vascular Surgery post op visit. Reagan Shepard is a 74 y.o. male [...] have been stable. He is staying at [facility] in [place]. Mariaelena allen thinks his wounds are healing. His pain is still present but his meds at his facility cont rol it. No other concerns today. VITAL SIGNS: Pulse 73 | SpO2 96% PHYSICAL EXAM: Constitutional: Well nourished, no signs [...] are healing well without signs of infection. [place] intact. Ulcers on right foot in h eal and lateral foot, healing. Assessment & Plan: Peripheral arterial disease with status post right femoral to below knee popliteal artery b ypass, left SFA stenting - US showed patency of right fem pop bypass. Will need close foll ow up moving forward. I've explained to the patient that in the event he experiences acute l imb ischemia as evidenced by severe pain or coldness or new lower leg wounds, the patient orestes sampson contact me immediately to return to my clinic or go to nearby emergency room right away . Wound care instruction sent with patient, monitor for signs of infection. Avoid pressure t o bilateral feet ulcers. Follow up with design manager soon. Return to vascular clinic in 2 week s for further follow-up with arterial duplex ultrasound for surveillance study. Continue ASA , plavix, and statin therapy. Mary Abadtronically signed by Bhanu Seaman PA-C at 06/11/2019 6:49 AM PD Tdocumented in this encounter Plan of Treatment Not on filedocumented as of this encounter Visit Diagnoses + + | Diagnosis | + + | Peripheral vascular disease (HCC) - Primary Peripheral vascular disease, unspecified | + + documented in this encounter Additional Health Concerns + + + + | Infection | Noted Time | Resolved Time | + + + + | Methicillin-resistant Staphylococcus aureus | 04/11/2019 2:01 PM | | | | PST | | + + + + documented as of this encounter"
--- OUTSIDE RECORDS SUMMARY | ~2019-08-08 | XMS | Encounter Summary ---
Demographics + + + | Address | [address] | | | [place] [address] | + + + | Home Phone | | + + + | Preferred Language | Unknown | + + + | Marital Status | | + + + | Scientology Affiliation | 1076 | + + + | Race | Unknown | + + + | Ethnic Group | Unknown | + + + Author + + + | Author | [facility] | | | and [place] | + + + | Organization | [facility] | | | and [place] | + + + | Address | Unknown | + + + | Phone | Unavailable | + + + Support + + + + + | Name | Relationship | Address | Phone | + + + + + | Jessica Amezquita | ECON | [address] | | | | | [place] | | | | | [address] | | + + + + + | Bel Solis | ECON | Unknown | | + + + + + Care Team Providers + +------+ + | Care Water Trainer Name | Role | Phone | + +------+ + PCP | Unavailable | + +------+ + Encounter Details +--------+ + + + + | Date | Type | Department | Care Team | Description | +--------+ + + + + | 04/21/ | Hospital | [facility] | Christina Da Silva | | | 2012 | Encounter | MED CTR EMERGENCY | MD [address]shine [address] | | | | | [place] [address] | [facility], | | | | | [place], [place] | [place] [address] | | | | | [address] | [phone] | | | | | [phone] | | | | | | | Cody Goodwin | | | | | | MD Evelia [address] | | | | | | [place], [place] | | | | | | [address] | | | | | | [phone] | | | | | | | [...] Performed At | + + + | [facility] | [facility] | | Department [address] [facility], [place] | [facility] | | [ rep [address]] [ rep [facility] | | st zip] Signed | - IMAGING | | | | | Patient Name: BIAREAGAN Physician: | | | BILL.01 : 1945 Age: 67 Sex: M Unit #: [id number] | | | Exam Date: 04/21/12 Location: ER | | | Report #: [id number] Page: | | | %(RAD)RES..mtdd.print.filter("pg") of %(RAD) | | | RES..mtdd.print.filter("tpg") | | | | | | Accession Number: [id number] | | | ABDOMEN ONE VIEW 04/22/2012 [...] Transcribed Date/Time: | | | 04/22/2012 18:46 Certified Nursing Attendant: | | | <<Signature on File>> | | | Rico | | | MD Jack04/23/12 0933 <Electronically signed by Rico Santiago MD> | | | Rico Santiago MD 04/22/12 1424 Certified Nursing Attendant: Abhishek | | | Djggnxooldtmf51/02/13 1846 Cody Goodwin MD | | | | | + + + + + + + + | Performing | Address | City/State/[facility] | Phone Number | | Organization | | | | + + + + + | [facility] | [address] | [place], [place] | [phone] | | [facility] | | [address] | | | - IMAGING | | | | + + + + + CT Abdomen Pelvis w Contrast (04/22/2012 11:43 AM PST) + + | Specimen | + + | | + + + + + | Narrative | Performed At | + + + | [facility] | [place] | | Department [address], [place] | [facility] | | [ rep ct street1[address]] [ rep ct [facility] | | st zip] Signed | - IMAGING | | | | | Patient Name: REAGAN AMEZQUITA Physician: | | | BILL. : 1945 Age: 67 Sex: M Unit #: [id number] | | | Exam Date: 04/21/12 Location: ER | | | Report #: [id number] Page: | | | %(RAD)RES..mtdd.print.filter("pg") of %(RAD) | | | RES..mtdd.print.filter("tpg") | | | | | | Accession Number: [id number] | | | CT SCAN OF THE [...] | | PRELIMINARY REPORT WAS SENT BY [facility] AT 10:02 P.M. ON | | | 04/21/12. Dictated Date/Time: 04/22/2012 11:43 | | | Transcribed Date/Time: 04/22/2012 15:29 Certified Nursing Attendant: | | | <<Signature on File>> | | | Rico | | | MD Jack04/23/12 0933 <Electronically signed by Rico Santiago MD> | | | Rico Santiago MD 04/22/12 1143 Certified Nursing Attendant: Abhishek | | | Yugpmiylkbmbd28/02/13 1529 Cody Goodwin MD | | | | | + + + + + + + + | Performing | Address | City/State/Zipcode | Phone Number | | Organization | | | | + + + + + | [facility] | [address] | [place] | [phone] | | [facility] | | [address] | | | - IMAGING | | | | + + + + + CBC with Differential (04/21/2012 7:28 PM PST) + + + + + + | Component | Value | Ref Range | Performed | Pathologist | | | | | At | Signature | + + + + + + | MANUAL | NO | | [facility] | | | [facility]ENT[facility] | | | [facility] | | | L ? | | [...] | | | | M/uL | [facility] | | | | [...] | | Lymphocytes | | | [facility] | | | | | | MEDICAL [...] + | [facility] | [address] | [place] | [phone] | | [facility] | | [address] | | | - LABORATORY | | | | + + + + + | [facility] | [address] | [place], [place] | | | [facility] | | [address] | | | - LABORATORY | | [...] 3.9 | 3.2 - 5.0 gm/dL | [facility] | | | | | | [facility] | | | | | | MEDICAL | | | | | | CENTER - | | | | | | LABORATORY | | + + + + + + | BUN | 8 | 7 - 18 mg/dL | [facility] | | | | | | [facility] | | | | | | MEDICAL | | | | | | CENTER - | | | | | | LABORATORY | | + + + + + + | Creatinine | 1.03 | 0.60 - 1.30 | [facility] | | | | | mg/dL | [facility] | | | | | | MEDICAL | | | | | | CENTER - | | | | | | LABORATORY | | + + + + + + | Estimated | >60Comment: For | >60 mL/min/A | [facility] | | | GFR | -Americans, | | [facility] | | | | please multiply the [...] + | [facility] | [address] | [place] | [phone] | | [facility] | | [facility] | | | - LABORATORY | | | | + + + + + | [facility] | [address] | [place], [place] | | | [facility] | | [address] [place] [address] | | | - LABORATORY | | | | + + + + + documented in this encounter Visit Diagnoses Not on filedocumented in this encounter
--- OUTSIDE RECORDS SUMMARY | ~2019-08-08 | XMS | Encounter Summary ---
Demographics + + + | Address | [address] | | | [place] [address] | + + + | Home Phone | | + + + | Preferred Language | Unknown | + + + | Marital Status | | + + + | Jew Affiliation | 1076 | + + + | Race | Unknown | + + + | Ethnic Group | Unknown | + + + Author + + + | Author | [facility] | | | and [place] | + + + | Organization | [facility] | | | and [place] | + + + | Address | Unknown | + + + | Phone | Unavailable | + + + Support + + + + + | Name | Relationship | Address | Phone | + + + + + | Jessica Shepard | ECON | [address] | | | | | [place] | | | | | [address] | | + + + + + | Bel Solis | ECON | Unknown | | + + + + + Care Team Providers + +------+ + | Care Paper Cup Machine Operator Name | Role | Phone | + +------+ + | Dian Lr NP | PCP | | + +------+ + Encounter Details +--------+ + + + + | Date | Type | Department | Care Team | Description | +--------+ + + + + | 10/16/ | Orders Only | [facility] | Provider, | Other acute | | 2019 | | SYSTEM GENERIC OP | MD [address] | osteomyelitis, right | | | | CONVERSION [address] | [address] | ankle and foot | | | | [address] [place], [place] | [place] [address] | ([facility]) | | | | [address] | | | | | | [phone] | | | +--------+ + + + [...] ankle and foot (HCC) | + + documented in this encounter"
--- OUTSIDE RECORDS SUMMARY | ~2019-08-08 | XMS | Encounter Summary ---
Demographics + + + | Address | [address] | | | [place] [address] | + + + | Home Phone | | + + + | Preferred Language | Unknown | + + + | Marital Status | | + + + | Yarsani Affiliation | 1076 | + + + | Race | Unknown | + + + | Ethnic Group | Unknown | + + + Author + + + | Author | [facility] | | | and [place] | + + + | Organization | [facility] | | | and [place] | + + + | Address | Unknown | + + + | Phone | Unavailable | + + + Support + + + + + | Name | Relationship | Address | Phone | + + + + + | Jessica Amezquita | ECON | [address] | | | | | [place] | | | | | [address] | | + + + + + | Bel Solis | ECON | Unknown | | + + + + + Care Team Providers + +------+ + | Care Supervisor Feed House Name | Role | Phone | + +------+ + | Dian Lr NP | PCP | | + +------+ + Encounter Details +--------+ + + + + | Date | Type | Department | Care Team | Description | +--------+ + + + + | 04/05/ | Hospital | [facility] | Cezar Da Silvaee | | | 2014 - | Encounter | MED CTR EMERGENCY | MD [address] | | | | | [place] [address] | [facility], | | | 04/06/ | | [place] | [place] [address] | | | 2013 | | [address] | [phone] | | | | | [phone] | | | +--------+ + + + [...] + + documented in this encounter Results US Abdomen Limited (04/06/2013 8:27 AM PST) + + | Specimen | + + | | + + + + + | Narrative | Performed At | + + + | [facility] | [facility] | | Department [address] [facility] | [facility] | | [ rep ct street1+2] [ rep ct [facility] | | [facility]] Signed | - IMAGING | | | | | Patient Name: REAGAN AMEZQUITA Physician: | | | ALICJAR. : 1945 Age: 68 Sex: M Unit #: [id number] | | | Exam Date: 04/05/13 Location: ER | | | Report #: [id number] Page: | | | %(RAD)RES..mtdd.print.filter("pg") of %(RAD) | | | RES..mtdd.print.filter("tpg") | | | | | | Accession Number: [id number] | | | ULTRASOUND OF THE ABDOMEN [...] Transcribed Date/Time: 04/06/2013 08:35 | | | Customer Insight Analyst: <<Signature on File>> | | | | | | Rico Santiago MD04/06/13 1619 <Electronically signed by Rico Santiago | | | MD> Rico Santiago MD 04/06/13 0827 Customer Insight Analyst: | | | [employer] Utprcgjmryifb81/17/14 0835 Christina Da Silva, | | | | | + + + + + + + + | Performing | Address | City/State/Zipcode | Phone Number | | Organization | | | | + + + + + | [facility] | [address] | [place] | [phone] | | [facility] | | [address] | | | - IMAGING | | | | + + + + + CT Abdomen Pelvis w Contrast (04/06/2013 7:25 AM PST) + + | Specimen | + + | | + + + + + | Narrative | Performed At | + + + | [facility] | [place] | | Department [address], [place] | [facility] | | [ rep ct street1+2] [ rep ct [facility] | | st zip] Signed | - IMAGING | | | | | Patient Name: REAGAN AMEZQUITA Physician: | | | ALICJAR. : 1945 Age: 68 Sex: M Unit #: [id number] | | | Exam Date: 04/05/13 Location: ER | | | Report #: [id number] Page: | | | %(RAD)RES..mtdd.print.filter("pg") of %(RAD) | | | RES..mtdd.print.filter("tpg") | | | | | | Accession Number: [id number] | | | ENHANCED CT ABDOMEN AND [...] | fluid is evident. There are stable absndivnud-ic-zltutn enlarged | | | kierra caval lymph [...] STABLE SPLENOMEGALY. | | | 4. STABLE LYVQJSKYEF-VF-TCKASN ENLARGED KIERRA CAVAL LYMPH | | | [...] ER | | | staff by the [facility] radiologist on 04/05/2013 at 2147 hours. | | | Dictated Date/Time: 04/06/2013 07:25 Transcribed | | | Date/Time: 04/06/2013 07:40 Customer Insight Analyst: | | | <<Signature on File>> | | | Tez Jacobo | | | MD Yossi04/06/13 1051 <Electronically signed by Tez Sy MD> | | | Tez Sy MD 04/06/13 0725 Customer Insight Analyst: | | | [employer] Kdzetroiymbjs26/17/14 0740 Christina Da Silva, | | | | | + + + + + + + + | Performing | Address | City/State/Zipcode | Phone Number | | Organization | | | | + + + + + | [facility] | [address] | [place] | [phone] | | [facility] | | [address] | | | - IMAGING | | [...] - 1.030 | [facility] | | | [place], | | | [facility] | | | Urine | | | [...] | | Esterase, | | | [facility] | | | Urine | | | MEDICAL | | | | | | CENTER - | | | | | | LABORATORY | | + + + + + + | White Blood | NONE | 0 - 5 /hpf | [facility] | | | Cells, | | | [facility] | | | Urine | | | MEDICAL | | | | | | CENTER - | | | | | | LABORATORY | | + + + + + + | Red Blood | NONE | 0 - 3 /hpf | [facility] | | | Cells, | | | [facility] | | | Urine | | | MEDICAL | | | | | | CENTER - | | | | | | LABORATORY | | + + + + + + | Squamous | NONE | FEW /hpf | [facility] | | | Epithelial | | | [facility] | | | Cells, | | | MEDICAL | | | Urine | | | CENTER - | | | | | | LABORATORY | | + + + + + + | Bacteria, | NONE | NONE /hpf | [facility] | | | Urine | | | [facility] | | | | | | MEDICAL | | | | | | CENTER - | | | | | | LABORATORY | | + + + + + + | Culture | NO | | [facility] | | | Indicated | | | [facility] | | [address] | [place] | [phone] | | [facility] | | [address] | | | - LABORATORY | | | | + + + + + | [facility] | [address] | [place] | | | [facility] | | [address] | | | - LABORATORY | | [...] + | [facility] | [address] | [place] | [phone] | | [facility] | | [address] | | | - LABORATORY | | | | + + + + + | [facility] | [address] | [place], [place] | | | [facility] | | [address], [facility] | | | - LABORATORY | [...] [facility] | | | | | | [facility] | | | | | | [...] | 14.5 | 6.0 - 17.0 | [facility] | [...] + | [facility] | [address] | [place], [place] | [phone] | | [facility] | | [facility] | | | - LABORATORY | | | | + + + + + | [facility] | [address] | [place], [place] | | | [facility] | | [address] [place] [address] | | | - LABORATORY | | | | + + + + + Lipase (04/05/2013 6:57 PM PST) + +-------+ + + + | Component | Value | Ref Range | Performed | Pathologist | | | | | At | Signature | + +-------+ + + + | Lipase | 43 | 0 - 60 U/L | [facility] | | | | [address] | [place] | [phone] | | [facility] | | [address] | | | - LABORATORY | | | | + + + + + | [facility] | [address] | [place] | | | [facility] | | [address], [facility] | | | - LABORATORY | [...] | | | | | REPORT TO [facility] | | | | | | 04/05/13 @ 1919 by | | | | | | SHANE | | | | | | Comment: PHONED REPORT TO [facility] 04/05/13 @ 1919 by SHANE | | | | + + + +-- + + + + | Specimen | + + | | + + + + + + + | Performing | Address | City/State/Zipcode | Phone Number | | Organization | | | | + + + + + | [facility] | [address] | [place] | [phone] | | [facility] | | [address] | | | - LABORATORY | | | | + + + + + | [facility] | [address] | [place] | | | [facility] | | [address] | | | - LABORATORY | | | | + + + + + documented in this encounter Visit Diagnoses Not on filedocumented in this encounter
--- OUTSIDE RECORDS SUMMARY | ~2019-08-08 | XMS | Encounter Summary ---
Demographics + + + | Address | [address] | | | [place] [address] | + + + | Home Phone [...] | Organization | [facility] | | | and [place] | + + + | Address | Unknown | + + + | Phone | Unavailable | + + + Support + + + + + | Name | Relationship | Address | Phone | + + + + + | Jessica Shepard | ECON | [address] | | | | | [place] | | | | | [address] | | + + + + + | Bel Solis | ECON | Unknown | | + + + + + Care Team Providers + +------+ + | Care Community Administrator Name | Role | Phone | + +------+ + | Jamar Manuel MD | PCP | | + +------+ + Encounter Details +--------+ + + + + | Date | Type | Department | Care Team | Description | +--------+ + + + + | 04/10/ | Hospital | [facility] | Aleksander Montiel, | | | 2019 | [facility] | [facility] | MD Nash SMITH | | | | | ULTRASOUND [address] [place], [place] | | | | | [address] | [address] | | | | | [place], [place] | [phone] | | | | | [address] | | | | | | [phone] | | | +--------+ + + + [...] + + +---------+ + + | losartan (FATUMAAR) | Take 1 tablet by | 30 [...] tablet by | 30 | 0 | // | | | (KLOR-CON) 10 mEq | [...] +---------+ + + | oxyCODONE | Take 5 mg by mouth | | 0 | | | | (ROXICODONE) 5 mg | every 8 (eight) | | | | 0 | | tablet | hours. | | | | | + + [...] of this encounter Plan of Treatment + +---------+--------+ + + | Name | Type | Priori | Associated Diagnoses | Date/Time | | | | ty | | | + +---------+--------+ + + | STORED IMAGE UROLOGY | Imaging | Routin | | 04/10/2019 7:04 PM | | | | e | | PST | + +---------+--------+ + + documented as of this encounter Visit Diagnoses Not on filedocumented in this encounter"
--- OUTSIDE RECORDS SUMMARY | ~2019-08-08 | XMS | Encounter Summary ---
Demographics + + + | Address | [address] | | | [place] [address] | + + + | Home Phone | | + + + | Preferred Language | Unknown | + + + | Marital Status | | + + + | Baptist Affiliation | 1076 | + + + | Race | Unknown | + + + | Ethnic Group | Unknown | + + + Author + + + | Author | [facility] | | | and [place] | + + + | Organization | [facility] | | | and [place] | + + + | Address | Unknown | + + + | Phone | Unavailable | + + + Support + + + + + | Name | Relationship | Address | Phone | + + + + + | Jessica Shepard | ECON | [address] | | | | | [place] | | | | | [address] | | + + + + + | Bel Solis | ECON | Unknown | | + + + + + Care Team Providers + +------+ + | Care [place] Police Lieutenant Name | Role | Phone | + +------+ + | Jamar Manuel MD | PCP | | + +------+ + Encounter Details +--------+ + + + + | Date | Type | Department | Care Team | Description | +--------+ + + + + | 04/10/ | Hospital | [facility] | Aleksander Montiel, | | | 2019 | [facility] | [facility] | MD [address] | | | | | [address] [place], [place] | | | | | [address] | [address] | | | | | [place], [place] | [phone] | | | | | [address] | | | | | | [phone] | | | +--------+ + + + [...]
--- OUTSIDE RECORDS SUMMARY | ~2019-08-08 | XMS | Encounter Summary ---
Demographics + + + | Address | [address] | | | [place] [address] | + + + | Home Phone | | + + + | Preferred Language | Unknown | + + + | Marital Status | | + + + | Anglican Affiliation | 1076 | + + + | Race | Unknown | + + + | Ethnic Group | Unknown | + + + Author + + + | Author | Merged With [facility] | | | and [place] | + + + | Organization | Merged With [facility] | | | and [place] | + + + | Address | Unknown | + + + | Phone | Unavailable | + + + Support + + + + + | Name | Relationship | Address | Phone | + + + + + | Jessica Shepard | ECON | [address] | | | | | [place] | | | | | [address] | | + + + + + | Bel Solis | ECON | Unknown | | + + + + + Care Team Providers + +------+ + | Care Back Maker Name | Role | Phone | + +------+ + | Jamar Manuel MD | PCP | | + +------+ + Encounter Details +--------+---------+ + + + | Date | Type | Department | Care Team | Description | +--------+---------+ + + + | 04/18/ | Surgery | [facility] | Gianluca Robbins MD | [facility] | | 2019 | | [facility] | [address] | FEMORAL-TIBIAL | | | | OPERATING ROOM [address] | [address] [place], [place] | | | | | [address] | [address] | | | | | [place], [place] | | | | | | [address] | | | | | | [phone] | | | +--------+---------+ + + + [...] other chronic comorbidities who pre sents to [facility] ER on 04/06 for shortness of breath admitted with 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 The patient was admitted to regular medical floor and started on optimal medical management . On-call mac developer (Dr. Ruelas) recommended continued medical management. Patient [...] inferior defect with partial improvement at rest truck supervisor was i nformed by hospitalist colleague recommended continued medical management without any surg ical intervention. Of note, the patient at another facility was noted to have strep bactere josh repeat blood cultures x2 demonstrate no growth to date. ID was consulted patient started on vancomycin with outpatient follow-up in ID clinic 2 weeks after discharge. On th e day of discharge, the patient was alert and oriented x3, tolerating p.o. diet without symp toms, clinically, hemodynamically from a laboratory perspective stable for discharge with ou tpatient follow-up. The patient is to follow-up with their primary care provider within 1 w jamul after discharge, follow-up with ID in 2 weeks after discharge, follow-up with vascular s urgery as per their recommendations or otherwise within 2 weeks after discharge. The patien t will need to follow-up with his outpatient mac developer within 1 to 2 weeks after discharg [...] Results Results Reviewed. Discharge Information: Follow up: [facility] [address] [facility] [phone] Bhanu Seaman PA-C [address] [place] [facility] [address] In 2 weeks Jamar Manuel MD [address] [place] [address] Schedule an appointment as soon as possible for a visit in 1 week Hero Gaston MD [address] [facility] [address] Schedule an appointment as soon as possible for a visit in 2 weeks Post hospital discharge follow-up Dr. New Ruelas [address] [facility] [address] Schedule an appointment as soon as [...] : DAY: 12 units.NIGHT: 10 units aka: Florentino CHENG omeprazole 20 mg capsule Take 20 mg [...] mg per tablet aka: NORCO . Disposition: senior care Condition: Stable Code Status: Full Code Discharge [...] numbness Complications from anesthesia Date Last Reviewed: 08/20/201519992467-3[address] [employer] [place] [address]. All righ ts reserved. This information is [...] + + +---------+ + + | losartan (AMARISZAAR) | Take 1 tablet by | 30 [...] Wakefield PA-C - 04/21/2019 8:21 AM PST [facility]: Vascular Surgery Progress Note SUBJECTIVE Patient Summary: 74 y.o. man with complex medical issues and LE ischemic ulcers, he wa s recently admitted to the [facility] from 03/28/19 to 04/04/19 where he was treated/ diagnosed with systolic heart failure, type 2 AK/NSTEMI, SHAE, ARF. O2 desaturation brought him from SNF to [facility] and current admission today with CHF and [...] Full code Bhanu Seaman PA-C Vascular Surgery oranRegla RN - 04/21/2019 6:20 AM PSTHydrocodone x 1 given PRN pain. WENDY right groin to bulb suction, o utput of 35, WENDY drain to bulb suction Rt lower leg output of 25. Miller catheter to gravity. Hourly rounding uneventful End of shift chart check complete ujj, Vladimir Khan RN - 04/20/2019 6:10 PM PSTA/O, VSS, turning/repositioning freq uently, makes needs known, IV abx, PICC RUE, d/c tomorrow Chart check complete Electronically signed by: Vladimir Chapin RN 04/20/2019 6:11 PM annah Anaya RN - 04/20/2019 4:40 PM PST [facility]: Wound Care Follow Up Note Hospital [...] Primary Wound Type: Diabetic Ulcer Side: Left [place] ation: lateral Location: foot Wound Subtype: ulceration, [...] care of this patient. Hannah Anaya RN, CWFRED 16:41 Grover Shaver M D - 04/20/2019 2:16 PM PST [facility]: Hospitalist Progress Note Pt: Reagan [...] hematuria. Recent history notable for admit to [facility] from 03/28/19 to 04/04/2019 for CHF exacerbation with eventual dischar ge to [facility]. He then re-presented to same hospital [...] encounter as of 04/20/19-14:16 IMAGING: Reviewed in [facility], no new results. PROBLEM LIST [...] Received 8 days of IV antibiotics at [facility] discharged home on with augmentin, now readmitted on 04/06 at [facility] and started on rocephin after sending 2 [...] SQH Code status: Full Dispo: back to [facility] pending recovery from vascular bypass surgery (okay to go fr vascular surgery perspective), final ID recs, tentatively [...] vancomycin therapy as indicated. Thank You, Sunshine Loev, PharmD, [facility] 04/20/19 1:52 PM Nandini Sánchez se, MD - 04/20/2019 8:56 AM PST [facility]: Infectious Diseases Progress Note Hospital Day: [...] Component Value Units Date/Time Culture, Wound, Superficial [[id number]] (Abnormal) (Susceptibility) Collected: 04/06/191545 Order Status: Completed Lab Status: Final result Updated: 04/11/19 0728 Specimen: Body Fluid from Heel, Right Special Requests LT FOOT Special Requests Testing performed at [facility];[address] [place] [address] RESULT -- 1+ ENTEROCOCCUS FAECALIS Aminoglycosides (except [...] Sensitive SUSCEPTIBLE JESSICA Final Testing performed at [facility], [address] [place] [address] Culture, Wound, Superficial [[id number]] Collected: 04/06/191545 Order Status: Completed Lab Status: Final result Updated: 04/08/19 0937 Specimen: Body Fluid from Heel, Right Special Requests RIGHT FOOT Special Requests Testing performed at [facility];[address] [place] [address] RESULT -- 1+ NORMAL SKIN CELSA ISOLATED RESULT NO FURTHER WORKUP RESULT Testing performed at [facility], [address] [place] [address] Comment: Testing performed at [facility], [address] [place] [address] Microbiology Results (72 hrs) No results found [...] therapy, monitorization, follow-up were discussed with the bienvenido brown. He will return to ID clinic [...] assisting with dosing and monitorization. Discussed with senior case manager regarding OPAT. Discussed with senior case manager regarding discharge planning. Dr. Dolan will take over ID service tomorrow. Please call if questions. Hero Richardson MD, MPH Infectious Diseases 04/20/19 ubbard, Sheila Diallo RN - 04/19/2019 7:20 PM PSTEnd of shift chart check complete. Sheila Cabrera RN unshine Love, [facility] - 04/19/2019 3:23 PM PSTFormatting of this note might be different from the terry l. Vancomycin Dosing Per Pharmacy Subjective/Objective Reagan [...] mg IV Q12H 0206 1600- given late 210 Planned @1330 - not drawn due to [...] Shaver MD - 04/19/2019 2:46 PM PST [facility]: Hospitalist Progress Note Pt: Reagan Shepard AGE/SEX: 74 y.o. male ROOM: [facility]/9119- : 1945 PCP: Jamar Manuel MD ADMIT DATE: 04/06/2019 TODAY'S DATE: 04/19/2019 Hospital Day/Hospital Course: LOS: 13 days Mr. Shepard is a 74-year-old gentleman with a history of bilateral nonhealing diabetic trisha t ulcers, and history of TBI, stroke, insulin dependent DM, who presents with CHF exacerbati on with hospital course complicated by gross hematuria. Recent history notable for admit to [facility] from 03/28/19 to 04/04/2019 for CHF exacerbation with eventual dischar ge to [facility]. He then re-presented to same hospital [...] Received 8 days of IV antibiotics at [facility] discharged home on with augmentin, now readmitted on 04/06 at [facility] and started on rocephin after sending 2 [...] SQH Code status: Full Dispo: back to [facility] pending recovery from vascular bypass surgery, final ID recs , tentatively planning for ~04/21 Grover Charles MD 2:46 PM 04/19/2019 Portions of this chart may have been copied from previous notes for continuity of care purp ose Hero Sánchez MD - 04/19/2019 9:53 AM PSTFormatting of this note might be different from the [facility]: Infectious Diseases Progress Note Hospital Day: [...] Component Value Units Date/Time Culture, Wound, Superficial [[id number]] (Abnormal) (Susceptibility) Collected: 04/06/19 1546 Order Status: Completed Lab Status: Final result Updated: 04/11/19 0728 Specimen: Body Fluid from Heel, Right Special Requests LT FOOT Special Requests Testing performed at [facility];[address] [place] [address];[place] [address] RESULT -- 1+ ENTEROCOCCUS FAECALIS Aminoglycosides (except [...] Resistant RESISTANT JESSICA Final Cefepime Sensitive SUSCEPTIBLE JESISCA Final Cefoxitin Resistant RESISTANT EJSSICA Final Ceftazidime Sensitive SUSCEPTIBLE JESSICA Final Ceftriaxone [...] Sensitive SUSCEPTIBLE JESSICA Final Testing performed at [facility], [address] [place] [address] Culture, Wound, Superficial [[id number]] Collected: 04/06/19 1546 Order Status: Completed Lab Status: Final result Updated: 04/08/1937 Specimen: Body Fluid from Heel, Right Special Requests RIGHT FOOT Special Requests Testing performed at [facility];[address] [place] [address] RESULT -- 1+ NORMAL SKIN CELSA ISOLATED RESULT NO FURTHER WORKUP RESULT Testing performed at [facility], [address] [place] [address] Comment: Testing performed at [facility], [address] [place] [address] Culture, Blood [[id number]] Collected: 04/06/198 Order Status: Completed Lab Status: Final result Updated: 04/12/19 0652 Specimen: Peripheral Blood Special Requests R WRIST Special Requests Testing performed at [facility];[address] [place] [address] RESULT NO GROWTH 6 DAYS RESULT Testing performed at [facility], [address] [place] [address] Comment: Testing performed at [facility], [address] [place] [address] Culture, Blood [[id number]] Collected: 04/06/19330 Order Status: Completed Lab Status: Final result Updated: 04/12/1952 Specimen: Peripheral Blood Special Requests L WRIST Special Requests Testing performed at [facility];[address] [place] [address] RESULT NO GROWTH 6 DAYS RESULT Testing performed at [facility], [address] [place] [address] Comment: Testing performed at [facility], [address] [place] [address] Microbiology Results (72 hrs) No results found [...] might be different from the o riginal. [facility]: Vascular Surgery Progress Note SUBJECTIVE Patient Summary: 74 y.o. man with complex medical issues and LE ischemic ulcers, he wa s recently admitted to the [facility] from 03/28/19 to 04/04/19 where he was treated/ diagnosed with systolic heart failure, type 2 AK/NSTEMI, SHAE, ARF. O2 desaturation brought him from SNF to [facility] and current admission today with CHF and [...] Full code Bhanu Seaman PA-C Vascular Surgery edimelba, Rachel Altamirano RN - 04/19/2019 5:46 AM [id number] left foot dressing change complete per order. Patient R groi n site with WENDY intact old drainage marked and unchanged patient reported burning pain BLE st ayed warm and pulses dopplered. Patient on 2L NC. Miller in place. Chart check complete. Leeanne Arias RN ujj, Vladimir Khan RN - 04/18/2019 6:40 PM PSTDrowsy at [...] Grover Shaver MD - 4:52 PM PST [facility]: Hospitalist Progress Note Pt: Reagan Shepard AGE/SEX: 74 y.o. male ROOM: [facility] OR INTRA OP POOL/[facility]* : 1945 PCP: Jamar Manuel MD ADMIT DATE: 04/06/2019 TODAY'S DATE: 04/18/2019 Hospital Day/Hospital Course: LOS: 12 days Mr. Shepard is a 74-year-old gentleman with a history of bilateral nonhealing diabetic trisha t ulcers, and history of TBI, stroke, insulin dependent DM, who presents with CHF exacerbati on with hospital course complicated by gross hematuria. Recent history notable for admit to [facility] from 03/28/19 to 04/04/2019 for CHF exacerbation with eventual dischar ge to [facility]. He then re-presented to same hospital [...] [MAR Hold] amLODIPine 5 mg Oral Daily [MAY [...] [MAY Hold] lidocaine 1 patch Transdermal Daily [May] losartan [...] the last 72 hours. IMAGING: Reviewed in [facility], no new results. PROBLEM LIST [...] Received 8 days of IV antibiotics at [facility] discharged home on with augmentin, now readmitted on 04/06 at [facility] and started on rocephin after sending 2 [...] SQH Code status: Full Dispo: back to [facility] pending cardiac evaluation/optimization, vascular bypass donna wero, final ID recs, tentatively planning for ~04/21 Grover Charles MD 4:52 PM 04/18/2019 Portions of this chart may have been copied from previous notes for continuity of care purp ose unshine Love R PH - 04/18/2019 2:45 PM PST [...] as indicated. Thank You, Sunshine Love, PharmD, [facility] 04/18/19 2:45 PM Syed López PTA [...] might be different from t kevin original. [facility]: Infectious Diseases Progress Note Hospital Day: [...] Component Value Units Date/Time Culture, Wound, Superficial [[id number]] (Abnormal) (Susceptibility) Collected: 04/06/19 1546 Order Status: Completed Lab Status: Final result Updated: 04/11/19 0728 Specimen: Body Fluid from Heel, Right Special Requests LT FOOT Special Requests Testing performed at [facility];[address] [place] [address];[place] [address] RESULT -- 1+ ENTEROCOCCUS FAECALIS Aminoglycosides (except [...] Sensitive SUSCEPTIBLE JESSICA Final Testing performed at [facility], [address] [place] [address] Culture, Wound, Superficial [[id number]] Collected: 04/06/19 1546 Order Status: Completed Lab Status: Final result Updated: 04/08/19 0937 Specimen: Body Fluid from Heel, Right Special Requests RIGHT FOOT Special Requests Testing performed at [facility];[address] [place] [address]32 RESULT -- 1+ NORMAL SKIN CELSA ISOLATED RESULT NO FURTHER WORKUP RESULT Testing performed at [facility], [address] [place] [address] Comment: Testing performed at [facility], [address] [place] [address] Culture, Blood [[id number]] Collected: 04/06/19 0338 Order Status: Completed Lab Status: Final result Updated: 04/12/19 0652 Specimen: Peripheral Blood Special Requests R WRIST Special Requests Testing performed at [facility];[address] [place] [address] RESULT NO GROWTH 6 DAYS RESULT Testing performed at [facility], [address] [place] [address] Comment: Testing performed at [facility], [address] [place] [address] Culture, Blood [[id number]] Collected: 04/06/19 0331 Order Status: Completed Lab Status: Final result Updated: 04/12/19 0652 Specimen: Peripheral Blood Special Requests L WRIST Special Requests Testing performed at [facility];[address] [place] [address]38 RESULT NO GROWTH 6 DAYS RESULT Testing performed at [facility], [address] [place] [address] Comment: Testing performed at [facility], [address] [place] [address] Microbiology Results (72 hrs) No results found [...] might be different from the o riginal. [facility]: Vascular Surgery Progress Note SUBJECTIVE Patient Summary: 74 y.o. man with complex medical issues and LE ischemic ulcers, he wa s recently admitted to the [facility] from 03/28/19 to 04/04/19 where he was treated/ diagnosed with systolic heart failure, type 2 AK/NSTEMI, SHAE, ARF. O2 desaturation brought him from SNF to [facility] and current admission today with CHF and [...] of feet - [facility]. Cryovein is in [...] of shift chart check review Sunshine Chen [facility] - 04/17/2019 1:38 PM PST [...] mg IV Q12H 0206 1600- given late 7 Planned @1330 - not drawn due to [...] as indicated. Thank You, Sunshine Love, PharmD, [facility] 04/17/19 1:38 PM Grover Shaver MD - 04/17/2019 12:25 PM PST [facility]: Hospitalist Progress Note Pt: Reagan Shepard AGE/SEX: 74 y.o. male ROOM: [facility]-01 : 1945 PCP: Jamar Manuel MD ADMIT DATE: 04/06/2019 TODAY'S DATE: 04/17/2019 Hospital Day/Hospital Course: LOS: 11 days Mr. Shepard is a 74-year-old gentleman with a history of bilateral nonhealing diabetic trisha t ulcers, and history of TBI, stroke, insulin dependent DM, who presents with CHF exacerbati on with hospital course complicated by gross hematuria. Recent history notable for admit to [facility] from 03/28/19 to 04/04/2019 for CHF exacerbation with eventual dischar ge to [facility]. He then re-presented to same hospital [...] Received 8 days of IV antibiotics at [facility] discharged home on with augmentin, now readmitted on 04/06 at [facility] and started on rocephin after sending 2 [...] SQH Code status: Full Dispo: back to [facility] pending cardiac evaluation/optimization, vascular bypass donna wero, final ID recs, tentatively planning for ~04/21 Grover Charles MD 12:25 PM 04/17/2019 Portions of this chart may have been copied from previous notes for continuity of care purp ose Rico Modi MD - 11:19 AM PST [facility]: Cardiology/[facility] Interventional cardiology note RE: Reagan [...] minimal reversib ility 2. Recent non-Q wave AK 3. Severe peripheral vascular disease 4. Diabetes [...] this note might be different from the [facility]: Infectious Diseases Progress Note Hospital Day: [...] Component Value Units Date/Time Culture, Wound, Superficial [[id number]] (Abnormal) (Susceptibility) Collected: 04/06/19 1546 Order Status: Completed Lab Status: Final result Updated: 04/11/19 0728 Specimen: Body Fluid from Heel, Right Special Requests LT FOOT Special Requests Testing performed at [facility];[address] [place] [address];[place] [address] RESULT -- 1+ ENTEROCOCCUS FAECALIS Aminoglycosides (except [...] Sensitive SUSCEPTIBLE JESSICA Final Testing performed at [facility], [address] [place] [address] Culture, Wound, Superficial [[id number]] Collected: 04/06/19 1546 Order Status: Completed Lab Status: Final result Updated: 04/08/19936 Specimen: Body Fluid from Heel, Right Special Requests RIGHT FOOT Special Requests Testing performed at [facility];[address] [place] [address] 16064 RESULT -- 1+ NORMAL SKIN CELSA ISOLATED RESULT NO FURTHER WORKUP RESULT Testing performed at [facility], [address] [place] [address] Comment: Testing performed at [facility], [address] [place] [address]42 Culture, Blood [[id number]] Collected: 04/06/198 Order Status: Completed Lab Status: Final result Updated: 04/12/1952 Specimen: Peripheral Blood Special Requests R WRIST Special Requests Testing performed at [facility];[address] [place] [address] 23214 RESULT NO GROWTH 6 DAYS RESULT Testing performed at [facility], [address] [place] [address] Comment: Testing performed at [facility], [address] [place] [address] 28680 Culture, Blood [[id number]] Collected: 04/06/191 Order Status: Completed Lab Status: Final result Updated: 04/12/1952 Specimen: Peripheral Blood Special Requests L WRIST Special Requests Testing performed at [facility];[address] [place] [address]262 RESULT NO GROWTH 6 DAYS RESULT Testing performed at [facility], [address] [place] [address]2009 Comment: Testing performed at [facility], [address] [place] [address]141 Microbiology Results (72 hrs) No results found [...] might be different from the o riginal. [facility]: Vascular Surgery Progress Note SUBJECTIVE Patient Summary: 74 y.o. man with complex medical issues and LE ischemic ulcers, he wa s recently admitted to the [facility] from 03/28/19 to 04/04/19 where he was treated/ diagnosed with systolic heart failure, type 2 AK/NSTEMI, SHAE, ARF. O2 desaturation brought him from SNF to [facility] and current admission today with CHF and [...] Sánchez MD - 04/16/2019 6:49 PM PST [facility]: Infectious Diseases Progress Note Hospital Day: [...] Component Value Units Date/Time Culture, Wound, Superficial [[id number]] (Abnormal) (Susceptibility) Collected: 04/06/19 1546 Order Status: Completed Lab Status: Final result Updated: 04/11/19 28 Specimen: Body Fluid from Heel, Right Special Requests LT FOOT Special Requests Testing performed at [facility];[address] [place] [address]24 RESULT -- 1+ ENTEROCOCCUS FAECALIS Aminoglycosides (except [...] Sensitive SUSCEPTIBLE JESSICA Final Testing performed at [facility], [address] [place] [address] Culture, Wound, Superficial [[id number]] Collected: 04/06/19 1546 Order Status: Completed Lab Status: Final result Updated: 04/08/19 0937 Specimen: Body Fluid from Heel, Right Special Requests RIGHT FOOT Special Requests Testing performed at [facility];[address] [place] [address]303 RESULT -- 1+ NORMAL SKIN CELSA ISOLATED RESULT NO FURTHER WORKUP RESULT Testing performed at [facility], [address] [place] [address] Comment: Testing performed at [facility], [address] [place] [address]98 Culture, Blood [[id number]] Collected: 04/06/19 0338 Order Status: Completed Lab Status: Final result Updated: 04/12/19 0652 Specimen: Peripheral Blood Special Requests R WRIST Special Requests Testing performed at [facility];[address] [place] [address] 78376 RESULT NO GROWTH 6 DAYS RESULT Testing performed at [facility], [address] [place] [address]01 Comment: Testing performed at [facility], [address] [place] [address] 92740 Culture, Blood [[id number]] Collected: 04/06/19 0331 Order Status: Completed Lab Status: Final result Updated: 04/12/19 0652 Specimen: Peripheral Blood Special Requests L WRIST Special Requests Testing performed at [facility];[address] [place] [address] 45769 RESULT NO GROWTH 6 DAYS RESULT Testing performed at [facility], [address] [place] [address] Comment: Testing performed at [facility], [address] [place] [address] 44059 Microbiology Results (72 hrs) No results found [...] Hero Richardson MD, MPH Infectious Diseases 04/16/19 rdaisy, Crista Altamirano RN - 04/16/2019 5:19 PM PSTPt vitals stable. . No changes in peripheral pulses. Pt n ot requiring oxygen. Pt denies chest pain and feeling short of breath. Needs and concerns a ddressed with pt. End of shift audit complete. Crista Sutherland RN rover Charles MD - 04/16/2019 5:02 PM PSTFormatti ng of this note might be different from the original. [facility]: Hospitalist Progress Note Pt: Reagan [...] hematuria. Recent history notable for admit to [facility] from 03/28/19 to 04/04/2019 for CHF exacerbation with eventual dischar ge to [facility]. He then re-presented to same hospital [...] 102.4 kg (225 lb 12 oz) 04/13/19 033 101.8 kg (224 lb 6.9 oz) Physical [...] 04/14/19 0629 BNP 587.58* IMAGING: Reviewed in [facility], no new results. PROBLEM LIST [...] Received 8 days of IV antibiotics at [facility] discharged home on with augmentin, now readmitted on 04/06 at [facility] and started on rocephin after sending 2 [...] SQH Code status: Full Dispo: back to [facility] pending cardiac evaluation/optimization, vascular bypass donna wero, [...] Rodrigez RD 04/16/2019 3:21 PM Sunshine Chen, [facility] - 04/16/2019 12:18 PM PST [...] indicated. Thank You, Sunshine Love, PharmD, BCCCP 01/27/20 12:16 PM Delia Bartlett RN - 04/16/2019 [...] Patient encouraged to discuss medication changes with mac developer ragini stanley to stopping medications or making any changes. Patient's questions answered. Heart Fail ure Hot Line number provided to patient. Face to face time was spent with patient providing counseling and education for congestive heart failure. Bhanu Wakefield P A-C - 04/16/2019 8:43 AM PST [facility]: Vascular Surgery Progress Note SUBJECTIVE Patient Summary: 74 y.o. man with complex medical issues and LE ischemic ulcers, he wa s recently admitted to the [facility] from 03/28/19 to 04/04/19 where he was treated/ diagnosed with systolic heart failure, type 2 AK/NSTEMI, SHAE, ARF. O2 desaturation brought him from SNF to [facility] and current admission today with CHF and [...] MD - 04/15/2019 1 2:48 PM PST [facility]: Hospitalist Progress Note Pt: Reagan Shepard AGE/SEX: 74 y.o. male ROOM: [address] [place], [place] [address]- : 1945 PCP: Jamar Manuel MD ADMIT DATE: 04/06/2019 TODAY'S DATE: 04/15/2019 Hospital Day/Hospital Course: LOS: 9 days Mr. Shepard is a 74-year-old gentleman with a history of bilateral nonhealing diabetic trisha t ulcers, and history of TBI, stroke, insulin dependent DM, who presents with CHF exacerbati on with hospital course complicated by gross hematuria. Recent history notable for admit to [facility] from 03/28/19 to 04/04/2019 for CHF exacerbation with eventual dischar ge to [facility]. He then re-presented to same hospital [...] 04/14/19 0629 BNP 587.58* IMAGING: Reviewed in [facility], no new results. PROBLEM LIST [...] risk stratification . -cardiology consulted -NPO at [place] for nuc med stress test in morning [...] Received 8 days of IV antibiotics at [facility] discharged home on with augmentin, now readmitted on 04/06 at [facility] and started on rocephin after sending 2 [...] SQH Code status: Full Dispo: back to [facility] pending cardiac evaluation/optimization, vascular bypass donna wero, final ID recs, likely 4-5 more days in hospital Grover Charles MD 12:48 PM 04/15/2019 Portions of this chart may have been copied from previous notes for continuity of care purp ose roctor, Sheila Brown [facility] - 04/15/2019 10:55 AM PST [...] mg IV Q12H 0206 1600- given late 210 Planned @1330 - not drawn due to [...] events. Chart check complete. Debby Borjas RN chnora Gaston, Hero Malave MD - 04/14/2019 3:10 PM PSTFormatting of this note might be differ ent from the original. [facility]: Infectious Diseases Progress Note Hospital Day: [...] TID lidocaine 1 patch Transdermal Daily losartan 50 [...] Component Value Units Date/Time Culture, Wound, Superficial [[id number]] (Abnormal) (Susceptibility) Collected: 04/06/191545 Order Status: Completed Lab Status: Final result Updated: 04/11/19 0728 Specimen: Body Fluid from Heel, Right Special Requests LT FOOT Special Requests Testing performed at [facility];[address] [place] [address] 49425 RESULT -- 1+ ENTEROCOCCUS FAECALIS Aminoglycosides (except [...] Sensitive SUSCEPTIBLE JESSICA Final Testing performed at [facility], [address] [place] [address] 10102 Culture, Wound, Superficial [[id number]] Collected: 04/06/191545 Order Status: Completed Lab Status: Final result Updated: 04/08/19 0937 Specimen: Body Fluid from Heel, Right Special Requests RIGHT FOOT Special Requests Testing performed at [facility];[address] [place] [address] 62200 RESULT -- 1+ NORMAL SKIN CELSA ISOLATED RESULT NO FURTHER WORKUP RESULT Testing performed at [facility], [address] [place] [address] Comment: Testing performed at [facility], [address] [place] [address] 51990 Culture, Blood [[id number]] Collected: 04/06/19 0338 Order Status: Completed Lab Status: Final result Updated: 04/12/1952 Specimen: Peripheral Blood Special Requests R WRIST Special Requests Testing performed at [facility];[address] [place] [address] 34716 RESULT NO GROWTH 6 DAYS RESULT Testing performed at [facility], [address] [place] [address] 25241 Comment: Testing performed at [facility], [address] [place] [address] 59394 Culture, Blood [[id number]] Collected: 04/06/19330 Order Status: Completed Lab Status: Final result Updated: 04/12/1952 Specimen: Peripheral Blood Special Requests L WRIST Special Requests Testing performed at [facility];[address] [place] [address] 22455 RESULT NO GROWTH 6 DAYS RESULT Testing performed at [facility], [facility] [place] [address] Comment: Testing performed at [facility], [address] [place] [address] 58970 Microbiology Results (72 hrs) No results found [...] Hero Richardson MD, MPH Infectious Diseases 04/14/19 lliKady rush RN - 04/14/2019 2:11 PM PSTWhile assessing pt pre PICC insertion pt reports having history of DVT in Rt arm in the 70s. He is noted to have Lt arm hemiparesis from previous [facility]. Discussed this with Dr Charles and he is in agreement with double lumen PICC insertion in Rt arm. ady Houser RN - 04/14/2019 1:[address] Richardson who is in agreement with double lumen PI CC insertion. achary Charles MD - 04/14/2019 1:29 PM PSTFormatting of this note might be different from the origin [facility] Service: Hospitalist Progress Note Pt: Reagan Shepard [...] hematuria. Recent history notable for admit to [facility] from 03/28/19 to 04/04/2019 for CHF exacerbation with eventual dischar ge to [facility]. He then re-presented to same hospital [...] 04/14/19 0629 BNP 587.58* IMAGING: Reviewed in [facility], no new results. PROBLEM LIST [...] Received 8 days of IV antibiotics at [facility] discharged home on with augmentin, now readmitted on 04/06 at [facility] and started on rocephin after sending 2 [...] date with age appropriate cancer screening PPx: H Code status: Full Dispo: back to [facility] pending improvement in gross hematuria, CHF exacerbation, re peat angiogram, final ID recs, likely 4-5 more days in hospital Grover Charles MD 1:29 PM 04/14/2019 Portions of this chart may have been copied from previous notes for continuity of care purp ose Lyric Molina RN - 04/14/2019 1:27 PM PST [facility]: Wound Care Follow Up Note Hospital [...] any additional questions. Lyric Mclain RN, CMSRN, [facility] Inpatient Wound Ostomy Care [phone] 04/14/2019 1:29 PM Dheeraj Barraza, PT - [...] to push back next dose till 10:00am. Bienvenido brown does not like to be turned dressing are clean dry and intact urine is still pink and overn ight chest pain resolved with negative trops and ekg so far vs stable.Vandana Luciano RN obrandi, Meghan Wolff, [facility] - 04/14/2019 6:31 AM PST [...] tomorrow given stable renal function. Day 04/14 0900 Planned @0300 Drawn at 0453 [...] Shaver MD - 04/13/2019 4:02 PM PST [facility]: Hospitalist Progress Note Pt: Reagan Shepard AGE/SEX: 74 y.o. male ROOM: [facility]2/4452-01 : 1945 PCP: Jamar Manuel MD ADMIT DATE: 04/06/2019 TODAY'S DATE: 04/13/2019 Hospital Day/Hospital Course: LOS: 7 days Mr. Shepard is a 74-year-old gentleman with a history of bilateral nonhealing diabetic trisha t ulcers, and history of TBI, stroke, insulin dependent DM, who presents with CHF exacerbati on with hospital course complicated by gross hematuria. Recent history notable for admit to [facility] from 03/28/19 to 04/04/2019 for CHF exacerbation with eventual dischar ge to [facility]. He then re-presented to same hospital [...] the last 168 hours. IMAGING: Reviewed in [facility], no new results. PROBLEM LIST [...] Received 8 days of IV antibiotics at [facility] discharged home on with augmentin, now readmitted on 04/06 at [facility] and started on rocephin after sending 2 [...] date with age appropriate cancer screening PPx: [facility] Code status: Full Dispo: back to [facility] pending improvement in gross hematuria, CHF exacerbation, [...] 113.3 kg Adjusted body weight: 89.1 kg [place] body weight: 73 kg Current Vital Signs: [...] [facility] Drawing a level once the patient returns will not provide an accurate assessment of Q12H dosing regimen. The patient's renal function remains stable, so I will order a mainten ance dose of 1250 mg Q12H with the first dose to be given now and check a level tomorrow gokul moura. Culture monitoring: Will monitor culture(s) for growth, identification, and sensitivities. Plan for level: 04/14 @0300 Pharmacy will continue to follow and make adjustments to vancomycin therapy as indicated. Thank You, Sunshine Love, PharmD, [facility] 04/13/19 3:20 PM Nandini Sánchez se, MD - 04/13/2019 10:54 AM PST [facility]: Infectious Diseases Progress Note Hospital Day: [...] Component Value Units Date/Time Culture, Wound, Superficial [[id number]] (Abnormal) (Susceptibility) Collected: 04/06/19 1546 Order Status: Completed Lab Status: Final result Updated: 04/11/19 0728 Specimen: Body Fluid from Heel, Right Special Requests LT FOOT Special Requests Testing performed at [facility];[address] [place] [address];[place] [address] RESULT -- 1+ ENTEROCOCCUS FAECALIS Aminoglycosides (except [...] Sensitive SUSCEPTIBLE JESSICA Final Testing performed at [facility], [address] [place] [address] 49061 Culture, Wound, Superficial [[id number]] Collected: 04/06/19 1546 Order Status: Completed Lab Status: Final result Updated: 04/08/19936 Specimen: Body Fluid from Heel, Right Special Requests RIGHT FOOT Special Requests Testing performed at [facility];[address] [place] [address] 03773 RESULT -- 1+ NORMAL SKIN CELSA ISOLATED RESULT NO FURTHER WORKUP RESULT Testing performed at [facility], [address] [place] [address] 19271 Comment: Testing performed at [facility], [address] [place] [address] 71643 Culture, Blood [[id number]] Collected: 04/06/198 Order Status: Completed Lab Status: Final result Updated: 04/12/19651 Specimen: Peripheral Blood Special Requests R WRIST Special Requests Testing performed at [facility];[address] [place] [address] 95752 RESULT NO GROWTH 6 DAYS RESULT Testing performed at [facility], [address] [place] [address] 11818 Comment: Testing performed at [facility], [address] [place] [address] 04503 Culture, Blood [[id number]] Collected: 04/06/19 033 Order Status: Completed Lab Status: Final result Updated: 04/12/19651 Specimen: Peripheral Blood Special Requests L WRIST Special Requests Testing performed at [facility];[address] [place] [address] 21418 RESULT NO GROWTH 6 DAYS RESULT Testing performed at [facility], [address] [place] [address] 48855 Comment: Testing performed at [facility], [address] [place] [address] 83118 Microbiology Results (72 hrs) No results found [...] might be different from the o riginal. [facility]: Vascular Surgery Progress Note SUBJECTIVE Patient Summary: 74 y.o. man with complex medical issues and LE ischemic ulcers, he wa s recently admitted to the [facility] from 03/28/19 to 04/04/19 where he was treated/ diagnosed with systolic heart failure, type 2 AK/NSTEMI, SHAE, ARF. O2 desaturation brought him from SNF to [facility] and current admission today with CHF and +tropo olivia. He is on IV heparin for his cardiac condition. Strep. agalactiae bacteremia, likely disseminated from patient non-healing diabetic foot ul cers. Patient currently being treated with oral Augmentin for this. Patient had undergone bedside debridement with Dr. Ceballos (podiatry). Events Overnight: PPD 2. NPO since midnight. Renal function good. Plan for angio toelvin y. OBJECTIVE Vital Signs: Vitals: 04/13/19 0331 [...] risks. Signed consent obtained. Will proceed to [facility] today for right leg angiogram. Moderate Sedation [...] might be different from the o riginal. [facility]: Infectious Diseases Progress Note Hospital Day: [...] Component Value Units Date/Time Culture, Wound, Superficial [[id number]] (Abnormal) (Susceptibility) Collected: 04/06/19 1546 Order Status: Completed Lab Status: Final result Updated: 04/11/19 0728 Specimen: Body Fluid from Heel, Right Special Requests LT FOOT Special Requests Testing performed at [facility];[address] [place] [address] 41039 RESULT -- 1+ ENTEROCOCCUS FAECALIS Aminoglycosides (except [...] Sensitive SUSCEPTIBLE JESSICA Final Testing performed at [facility], [address] [place] [address] 97983 Culture, Wound, Superficial [[id number]] Collected: 04/06/19 1546 Order Status: Completed Lab Status: Final result Updated: 04/08/19 0937 Specimen: Body Fluid from Heel, Right Special Requests RIGHT FOOT Special Requests Testing performed at [facility];[address] [place] [address] 36184 RESULT -- 1+ NORMAL SKIN CELSA ISOLATED RESULT NO FURTHER WORKUP RESULT Testing performed at [facility], [address] [place] [address] Comment: Testing performed at [facility], [address] [place] [address] 02445 Culture, Blood [[id number]] Collected: 04/06/19 0338 Order Status: Completed Lab Status: Final result Updated: 04/12/19 0652 Specimen: Peripheral Blood Special Requests R WRIST Special Requests Testing performed at [facility];[address] [place] [address] 98528 RESULT NO GROWTH 6 DAYS RESULT Testing performed at [facility], [address] [place] [address] Comment: Testing performed at [facility], [address] [place] [address] 34720 Culture, Blood [[id number]] Collected: 04/06/19 0331 Order Status: Completed Lab Status: Final result Updated: 04/12/1952 Specimen: Peripheral Blood Special Requests L WRIST Special Requests Testing performed at [facility];[address] [place] [address] 56636 RESULT NO GROWTH 6 DAYS RESULT Testing performed at [facility], [address] [place] [address] Comment: Testing performed at [facility], [address] [place] [address] 41286 Microbiology Results (72 hrs) No results found [...] this note might be different from the [facility] Service: Hospitalist Progress Note Pt: Reagan Shepard AGE/SEX: 74 y.o. male ROOM: 4452/4452-01 : 1945 PCP: Jamar Manuel MD ADMIT DATE: 04/06/2019 TODAY'S DATE: 04/12/2019 Hospital Day/Hospital Course: LOS: 6 days Mr. hSepard is a 74-year-old gentleman with a history of bilateral nonhealing diabetic trisha t ulcers, and history of TBI, stroke, insulin dependent DM, who presents with CHF exacerbati on with hospital course complicated by gross hematuria. Recent history notable for admit to [facility] from 03/28/19 to 04/04/2019 for CHF exacerbation with eventual dischar ge to [facility]. He then re-presented to same hospital [...] Received 8 days of IV antibiotics at [facility] discharged home on with augmentin, now readmitted on 04/06 at [facility] and started on rocephin after sending 2 [...] H Code status: Full Dispo: back to [facility] pending improvement in gross hematuria, CHF exacerbation, re peat angiogram, final ID recs, likely 4-5 more days in hospital Grover Charles MD 4:43 PM 04/12/2019 Portions of this chart may have been copied from previous notes for continuity of care purp ose Bhanu Wakefield PA-C - 04/12/2019 4:00 PM PST [facility]: Vascular Surgery Progress Note SUBJECTIVE Patient Summary: 74 y.o. man with complex medical issues and LE ischemic ulcers, he wa s recently admitted to the [facility] from 03/28/19 to 04/04/19 where he was treated/ diagnosed with systolic heart failure, type 2 AK/NSTEMI, SHAE, ARF. O2 desaturation brought him from SNF to [facility] and current admission today with CHF and [...] Full code Bhanu Seaman PA-C Vascular Surgery Sunshine Chen, [facility] - 04/12/2019 12:27 PM PST Vancomycin Dosing Per Pharmacy Subjective/Objective Reagan Shepard is a 74 y.o. 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 Additional antimicrobials: zosyn Quadriplegic/Paraplegic: no Diabetes: yes Baseline Serum Creatinine: 0.6 mg/dL Actual weight: 113.3 kg Adjusted body weight: 89.1 kg [place] body weight: 73 kg Current Vital Signs: [...] as indicated. Thank You, Sunshine Love, [facility]D, [facility] 04/12/19 3:27 PM Grover Shaver MD - 04/11/2019 5:06 PM PST [facility]: Hospitalist Progress Note Pt: Reagan [...] hematuria. Recent history notable for admit to [facility] from 03/28/19 to 04/04/2019 for CHF exacerbation with eventual dischar ge to [facility]. He then re-presented to same hospital due to worsening SOB and again found to have CHF exacerbation though this time with elevated troponin to 0.17. Dr. Ravage w as called and accepted the patient [...] INR 1.2 PTT 34* IMAGING: Reviewed in [facility], no new results. PROBLEM LIST [...] Received 8 days of IV antibiotics at [facility] discharged home on with augmentin, now readmitted on 04/06 at [facility] and started on rocephin after sending 2 [...] above) Code status: Full Dispo: back to [facility] pending improvement in gross hematuria and CHF exacerbation Grover Charles MD 5:06 PM 04/11/2019 Portions of this chart may have been copied from previous notes for continuity of care purp ose roctor, Sheila Brown [facility] - 04/11/2019 2:03 PM PST Vancomycin Dosing Per Pharmacy Subjective/Objective Reagan Shepard is a 74 y.o. 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 Additional antimicrobials: zosyn Quadriplegic/Paraplegic: no Diabetes: yes Baseline Serum Creatinine: 0.6 mg/dL Actual weight: 113.3 kg Adjusted body weight: 89.1 kg [place] body weight: 73 kg Current Vital Signs: [...] nomogram, current renal function, and desired trough. [facility] ed on patient history, vancomycin 1250 mg [...] therapy as indicated. Thank You, Sheila Ahuja, [facility], 04/11/2019, 1:51 PM Hero Sánchez MD - 04/11/2019 10:09 AM PSTFormatting of this note might be different from stephanie brown original. [facility]: Infectious Diseases Progress Note Hospital Day: [...] Component Value Units Date/Time Culture, Wound, Superficial [[id number]] (Abnormal) (Susceptibility) Collected: 04/06/19 1546 Order Status: Completed Lab Status: Final result Updated: 04/11/1928 Specimen: Body Fluid from Heel, Right Special Requests LT FOOT Special Requests Testing performed at [facility];[address] [place] [address];[place] [address] RESULT -- 1+ ENTEROCOCCUS FAECALIS Aminoglycosides (except [...] Sensitive SUSCEPTIBLE JESSICA Final Testing performed at [facility], [address] [place] [address], [place] [address] Culture, Wound, Superficial [[id number]] Collected: 04/06/19 1546 Order Status: Completed Lab Status: Final result Updated: 04/08/19 0937 Specimen: Body Fluid from Heel, Right Special Requests RIGHT FOOT Special Requests Testing performed at [facility];[address] [place] [address] 75798 RESULT -- 1+ NORMAL SKIN CELSA ISOLATED RESULT NO FURTHER WORKUP RESULT Testing performed at [facility], [address] [place] [address]202 Comment: Testing performed at [facility], [address] [place] [address] 91144 Culture, Blood [[id number]] Collected: 04/06/19 0338 Order Status: Completed Lab Status: Preliminary result Updated: 04/07/19 0813 Specimen: Peripheral Blood Special Requests R WRIST Special Requests Testing performed at [facility];[address] [place] [address] 28034 RESULT NO GROWTH AT THIS TIME RESULT Testing performed at [facility], [address] [place] [address] 72993 Comment: Testing performed at [facility], [address] [place] [address] 41231 Culture, Blood [[id number]] Collected: 04/06/19 0331 Order Status: Completed Lab Status: Preliminary result Updated: 04/07/19 0813 Specimen: Peripheral Blood Special Requests L WRIST Special Requests Testing performed at [facility];[address] [place] [address] 91341 RESULT NO GROWTH AT THIS TIME RESULT Testing performed at [facility] [facility], [address] [place] [id number] Comment: Testing performed at [facility], [address] [place] [id number] Microbiology Results (72 hrs) No results found [...] Shaver MD - 04/10/2019 4:51 PM PST [facility]: Hospitalist Progress Note Pt: Reagan Shepard AGE/SEX: 74 y.o. male ROOM: [facility]2/4452-01 : 1945 PCP: Jamar Manuel MD ADMIT DATE: 04/06/2019 TODAY'S DATE: 04/10/2019 Hospital Day/Hospital Course: LOS: 4 days Mr. Shepard is a 74-year-old gentleman with a history of bilateral nonhealing diabetic trisha t ulcers, and history of TBI, stroke, insulin dependent DM, who presents with CHF exacerbati on with hospital course complicated by gross hematuria. Recent history notable for admit to [facility] from 03/28/19 to 04/04/2019 for CHF exacerbation with eventual dischar ge to [facility]. He then re-presented to same hospital [...] INR 1.2 PTT 34* IMAGING: Reviewed in [facility], no new results. PROBLEM LIST [...] Received 8 days of IV antibiotics at [facility] discharged home on with augmentin, now readmitted on 04/06 at [facility] and started on rocephin after sending 2 [...] above) Code status: Full Dispo: back to [facility] pending improvement in gross hematuria and CHF exacerbation Grover Charles MD 4:51 PM 04/10/2019 Portions of this chart may have been copied from previous notes for continuity of care purp ose Hero Sánchez MD - 04/10/2019 2:27 PM PSTFormatting of this note might be different from the [facility]: Infectious Diseases Progress Note Hospital Day: [...] Component Value Units Date/Time Culture, Wound, Superficial [[id number]] (Abnormal) (Susceptibility) Collected: 04/06/191545 Order Status: Completed Lab Status: Preliminary result Updated: 04/10/19 0993 Specimen: Body Fluid from Heel, Right Special Requests LT FOOT Special Requests Testing performed at [facility];[address] [place] [address];[place] [address] RESULT -- 1+ ENTEROCOCCUS FAECALIS Aminoglycosides (except for high-level resistance testing), cephalosporins, clindamycin, an d trimethoprim-sulfamethoxazole may appear active in vitro but they are not effective clinic ally. RESULT -- 1+ ENTEROBACTER CLOACAE COMPLEX RESULT -- 1+ STAPHYLOCOCCUS AUREUS RESULT SUSCEPTIBILITY TO FOLLOW RESULT Testing performed at [facility], [address] [place] [address] Susceptibility Enterococcus faecalis (1) Antibiotic Interpretation Microscan [...] Sensitive SUSCEPTIBLE JESSICA Preliminary Testing performed at [facility], [address] [place] [address] 56871 Culture, Wound, Superficial [[id number]] Collected: 04/06/191545 Order Status: Completed Lab Status: Final result Updated: 04/08/19936 Specimen: Body Fluid from Heel, Right Special Requests RIGHT FOOT Special Requests Testing performed at [facility];[address] [place] [address] RESULT -- 1+ NORMAL SKIN CELSA ISOLATED RESULT NO FURTHER WORKUP RESULT Testing performed at [facility], [address] [place] [address] [id number] Comment: Testing performed at [facility], [address] [place] [address]73 Culture, Blood [[id number]] Collected: 04/06/19337 Order Status: Completed Lab Status: Preliminary result Updated: 04/07/19812 Specimen: Peripheral Blood Special Requests R WRIST Special Requests Testing performed at [facility];[address] [place] [address] 994[address] RESULT NO GROWTH AT THIS TIME RESULT Testing performed at [facility], [address] [place] [address] [id number] Comment: Testing performed at [facility], [address] [place] [address] 20918 Culture, Blood [[id number]] Collected: 04/06/19330 Order Status: Completed Lab Status: Preliminary result Updated: 04/07/19812 Specimen: Peripheral Blood Special Requests L WRIST Special Requests Testing performed at [facility];[address] [place] [address] 95586 RESULT NO GROWTH AT THIS TIME RESULT Testing performed at [facility], [address] [place] [address] 16449 Comment: Testing performed at [facility], [address] [place] [address] 69970 Microbiology Results (72 hrs) No results found [...] Hero Richardson MD, MPH Infectious Diseases 04/10/19 inesh, Aleksander Brown MD - 04/10/2019 1:26 PM PSTFormatting of this note might be different from the ramiro melyssa. [facility]: Urology Progress Note Hospital Day: LOS: [...] Jamar Sign Date/Time: 04/07/2019 1:43 PM XR Chest [...] of congestive failure. Signed by: Madison Solis [facility] Sign Date/Time: 04/09/2019 9:25 AM US [...] essential h ypertension, insulin-dependent diabetes, history of AK, GERD, ischemic stroke, diffuse signi ficant peripheral [...] Lujan MD - 04/09/2019 6:21 PM PST [facility]: Urology Progress Note Hospital Day: LOS: 3 days Post-Op Day: * No surgery found * SUBJECTIVE Events Overnight: This 74-year-old gentleman with a known history of insulin-dependen t diabetes mellitus, advanced peripheral vascular disease, osteomyelitis of right foot, diab etic foot ulcers which are significant and advanced in both feet, left hemiparesis, essentia l hypertension, hyperkalemia, history of GERD and non-STEMI AK, history of bacteremia, histo ry of stroke. [...] Color, UA STRAW Clarity, UA CLEAR Specific [place], Urine 1.006 1.002 - 1.030 Leukocyte esterase, [...] Solis [place] Sign Date/Time: 04/09/2019 9:25 AM PROBLEM LIST [...] longstanding history of diabetes, hypertension, GERD, ac bindu left hemiparesis, essential hypertension and very advanced [...] this note might be different from the [facility]: Vascular Surgery Progress Note SUBJECTIVE Patient Summary: 74 y.o. man with complex medical issues and LE ischemic ulcers, he wa s recently admitted to the [facility] from 03/28/19 to 04/04/19 where he was treated/ diagnosed with systolic heart failure, type 2 AK/NSTEMI, SHAE, ARF. 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 In between angiograms, he will require hy dration to flush the contrast. For now, continue pain management and antibiotics. Vascular w ill continue to follow. Code Status: Full code Bhanu Seaman PA-C Vascular Surgery lAnu sanford P T - 04/09/2019 1:30 PM PSTMISSED [...] Hospitalist Progress Note Reagan Shepard 74 y.o. [id number] [id number] male Jamar Manuel MD Hospital Day: LOS: 3 days Patient Summary: 74-year-old gentleman with past medical history of bilateral nonheali ng diabetic foot ulcer, and history of traumatic brain injury, stroke, diabetes mellitus typ e 2 insulin-dependent who was recently admitted to [facility] from 03/28/21 020 with acute hypoxic respiratory failure secondary to systolic CHF exacerbation with eject ion fraction of 40%, CTA chest negative for PE, troponin was minimally elevated 0.44 treated conservatively with medical therapy discharge to [facility] who went back to [facility] emergency department with worsening shortness of [...] 04/09/2019 1044 Gross per 24 hour Intake 28245 ml Output 9850 ml Net 856 ml [...] and patient evaluated by cardiology erin singh recommended medical management only Hypertension highly elevated [...] received 8 days of IV antibiotic at [facility] discharged home on on Augmentin readmitted on at [facility] and started on Rocephin after sending [...] might be different from the o riginal. [facility] Service: Podiatry Progress Note Hospital Day: LOS: 3 days Post-Op Day: * No surgery found * SUBJECTIVE Patient Summary: The patient is 74 y.o. male with significant cardiac and IDDM2 past medical history with recent admissions to [facility] where he was found to have el evated troponin level and he became decompensated and desaturated and was transferred to [facility] for a higher level of care. Although [...] Ady Mata RN - 04/08/2019 9:49 PM [id number]: pt a/o to all, vss. cbi in [...] Hospitalist Progress Note Reagan Shepard 74 y.o. [id number] male Jamar Manuel MD Hospital Day: LOS: 2 days Patient Summary: 74-year-old gentleman with past medical history of bilateral nonheali ng diabetic foot ulcer, and history of traumatic brain injury, stroke, diabetes mellitus typ e 2 insulin-dependent who was recently admitted to [facility] from 03/28/21 020 with acute hypoxic respiratory failure secondary to systolic CHF exacerbation with eject ion fraction of 40%, CTA chest negative for PE, troponin was minimally elevated 0.44 treated conservatively with medical therapy discharge to [facility] who went back to [facility] emergency department with worsening shortness of [...] results found for: POCTEMP, POCFIO2, POCPO2, BEART @[facility]@ PROBLEM LIST Principal Problem: Gross hematuria Active [...] received 8 days of IV antibiotic at [facility] discharged home on on Augmentin readmitted on at [facility] and started on Rocephin after sending [...] might be different from th e original. [facility]: Cardiology Progress Note Hospital Day: LOS: [...] Nandini Barboza RN - 04/07/2019 10:48 PM [id number]: pt a/o to all, occasionally forgetful, vss. [...] completed. End of shift chart review complete 20 11:58 PM Ady Hobbs MD - 04/07/2019 2:29 PM PST Hospitalist Progress Note Reagan Shepard 74 y.o. [id number] male Jamar Manuel MD Hospital Day: LOS: 1 day Patient Summary: 74-year-old gentleman with past medical history of bilateral nonheali ng diabetic foot ulcer, and history of traumatic brain injury, stroke, diabetes mellitus typ e 2 insulin-dependent who was recently admitted to [facility] from 03/28/21 020 with acute hypoxic respiratory failure secondary to systolic CHF exacerbation with eject ion fraction of 40%, CTA chest negative for PE, troponin was minimally elevated 0.44 treated conservatively with medical therapy discharge to [facility] who went back to [facility] emergency department with worsening shortness of [...] received 8 days of IV antibiotic at [facility] discharged home on on Augmentin readmitted on at [facility] and started on Rocephin after sending [...] this note might be different from th tiffany original. [facility]: Cardiology Progress Note Hospital Day: LOS: [...] Andrés Novoa RN - 04/06/2019 10:15 AM [facility] Service: Wound/Ostomy Care Progress Note Wound [...] | | | | | right foot ([facility]) | 04/20/2019 until | | | | | | 04/20/2020 | + +---------+--------+ + + | Comprehensive | Lab | Routin | Other | Weekly for 2 | | Metabolic Panel | | e | osteomyelitis of | Occurrences starting | | | | | right foot ([facility]) | 04/20/2019 until | | | | | | 04/20/2020 | + +---------+--------+ + + | C-Reactive Protein | Lab | Routin | Other | Weekly for 6 | | | | e | osteomyelitis of | Occurrences starting | | | | | right foot ([facility]) | 04/20/2019 until | | | | | | 04/20/2020 | + +---------+--------+ + + | Sedimentation Rate | Lab | Routin | Other | Weekly for 6 | | | | e | osteomyelitis of | Occurrences starting | | | | | right foot ([facility]) | 04/20/2019 until | | | | [...] | | 4452-1 | +---+--------+ + +--------+ +---+ + | POC GLUCOSE (NON | Routin | 04/18/2019 | | Results for this | | ORD) | e | 8:15 AM | | procedure are in the | | | | PST | | results section. | + +--------+ +---+ + | CBC WITH | Routin | 04/18/2019 | | Results for this | | DIFFERENTIAL | e | 3:56 AM | | procedure are in the | | | | PST | | results section. | + +--------+ +---+ + | BASIC METABOLIC | Routin | 04/18/2019 | | Results for this | | PANEL | e | 3:56 AM | | procedure are in the | | | | PST | | results section. | + +--------+ +---+ + | POC GLUCOSE (NON | Routin | 04/17/2019 | | Results for this | | ORD) | e | 8:41 PM | | procedure are in the | | | | PST | | results section. | + +--------+ +---+ + | POC GLUCOSE (NON | Routin | 04/17/2019 | | Results for this | | ORD) | e | 4:24 PM | | procedure are in the | | | | PST | | results section. | + +--------+ +---+ + | VANCOMYCIN, TROUGH | [facility] | 04/17/2019 | | Results for this | | | | 12:30 PM | | procedure are in the | | | | PST | | results section. | + +--------+ +---+ + | POC GLUCOSE (NON | Routin | 04/17/2019 | | Results for this | | ORD) | e | 12:05 PM | | procedure are in the | | | | PST | | results section. | + +--------+ +---+ + | POC GLUCOSE (NON | Routin | 04/17/2019 | | Results for this | | ORD) | e | 10:11 AM | | procedure are in the | | | | PST | | results section. | + +--------+ +---+ + | POC GLUCOSE (NON | Routin | 04/17/2019 | | Results for this | | ORD) | e | 7:54 AM | | procedure are in the | | | | PST | | results section. | + +--------+ +---+ + | CBC WITH | Routin | 04/17/2019 | | Results for this | | DIFFERENTIAL | e | 5:20 AM | | procedure are in the | | | | PST | | results section. | + +--------+ +---+ + | BASIC METABOLIC | Routin | 04/17/2019 | | Results for this | | PANEL | e | 5:20 AM | | procedure are in the | | | | PST | | results section. | + +--------+ +---+ + | TRANSFUSE 1 UNIT RED | Routin | 04/16/2019 | | | | BLOOD CELLS | e | 11:08 PM | | | | | | PST | | | + +--------+ +---+ + | POC GLUCOSE (NON | Routin | 04/16/2019 | | Results for this | | ORD) | e | 8:57 PM | | procedure are in the | | | | PST | | results section. | + +--------+ +---+ + | POC GLUCOSE (NON | Routin | 04/16/2019 | | Results for this | | ORD) | e | 4:39 PM | | procedure are in the | | | | PST | | results section. | + +--------+ +---+ + | POC GLUCOSE (NON | Routin | 04/16/2019 | | Results for this | | ORD) | e | 1:15 PM | | procedure are in the | | | | PST | | results section. | + +--------+ +---+ + | POC GLUCOSE (NON | Routin | 04/16/2019 | | Results for this | | ORD) | e | 7:36 AM | | procedure are in the | | | | PST | | results section. | + +--------+ +---+ + | CBC WITH | Routin | 04/16/2019 | | Results for this | | DIFFERENTIAL | e | 5:36 AM | | procedure are in the | | | | PST | | results section. | + +--------+ +---+ + | BASIC METABOLIC | Routin | 04/16/2019 | | Results for this | | PANEL | e | 5:36 AM | | procedure are in the | | | | PST | | results section. | + +--------+ +---+ + | TRANSFUSE 2 UNITS | Routin | 04/16/2019 | | | | RED BLOOD CELLS | e | 12:22 AM | | | | | | PST | | | + +--------+ +---+ + | POC GLUCOSE (NON | Routin | 04/15/2019 | | Results for this | | ORD) | e | 9:03 PM | | procedure are in the | | | | PST | | results section. | + +--------+ +---+ + | TRANSFUSE 2 UNITS | Routin | 04/15/2019 | | | | RED BLOOD CELLS | e | 8:59 PM | | | | | | PST | | | + +--------+ +---+ + | POC GLUCOSE (NON | Routin | 04/15/2019 | | Results for this | | ORD) | e | 4:51 PM | | procedure are in the | | | | PST | | results section. | + +--------+ +---+ + | POC GLUCOSE (NON | Routin | 04/15/2019 | | Results for this | | ORD) | e | 1:19 PM | | procedure are in the | | | | PST | | results section. | + +--------+ +---+ + | TYPE AND SCREEN | [facility] | 04/15/2019 | | Results for this | | | | 1:15 PM | | procedure are in the | | | | PST | | results section. | + +--------+ +---+ + | PRODUCT: RBC | [facility] | 04/15/2019 | | Results for this | | | | 1:14 PM | | procedure are in the | | | | PST | | results section. | + +--------+ +---+ + | POC GLUCOSE (NON | Routin | 04/15/2019 | | Results for this | | ORD) | e | 9:11 AM | | procedure are in the | | | | PST | | results section. | + +--------+ +---+ + | VANCOMYCIN, TROUGH | [facility] | 04/15/2019 | | Results for this | | | | 7:52 AM | | procedure are in the | | | | PST | | results section. | + +--------+ +---+ + | CBC WITH | Routin | 04/15/2019 | | Results for this | | DIFFERENTIAL | e | 6:36 AM | | procedure are in the | | | | PST | | results section. | + +--------+ +---+ + | BASIC METABOLIC | Routin | 04/15/2019 | | Results for this | | PANEL | e | 6:36 AM | | procedure are in the | | | | PST | | results section. | + +--------+ +---+ + | POC GLUCOSE (NON | Routin | 04/14/2019 | | Results for this | | ORD) | e | 8:15 PM | | procedure are in the | | | | PST | | results section. | + +--------+ +---+ + | POC GLUCOSE (NON | Routin | 04/14/2019 | | Results for this | | ORD) | e | 4:58 PM | | procedure are in the | | | | PST | | results section. | + +--------+ +---+ + | POC GLUCOSE (NON | Routin | 04/14/2019 | | Results for this | | ORD) | e | 11:43 AM | | procedure are in the | | | | PST | | results section. | + +--------+ +---+ + | ECHO COMPLETE W | Routin | 04/14/2019 | | Results for this | | CONTRAST | e | 11:21 AM | | procedure are in the | | | | PST | | results section. | + +--------+ +---+ + | POC GLUCOSE (NON | Routin | 04/14/2019 | | Results for this | | ORD) | e | 7:57 AM | | procedure are in the | | | | PST | | results section. | + +--------+ +---+ + | TROPONIN I | Timed | 04/14/2019 | | Results for this | | | | 6:29 AM | | procedure are in the | | | | PST | | results section. | + +--------+ +---+ + | CBC WITH | Routin | 04/14/2019 | | Results for this | | DIFFERENTIAL | e | 6:29 AM | | procedure are in the | | | | PST | | results section. | + +--------+ +---+ + | B TYPE NATRIURETIC | Routin | 04/14/2019 | | Results for this | | PEPTIDE | e | 6:29 AM | | procedure are in the | | | | PST | | results section. | + +--------+ +---+ + | BASIC METABOLIC | Routin | 04/14/2019 | | Results for this | | PANEL | e | 5:09 AM | | procedure are in the | | | | PST | | results section. | + +--------+ +---+ + | VANCOMYCIN LEVEL | [facility] | 04/14/2019 | | Results for this | | | | 4:53 AM | | procedure are in the | | | | PST | | results section. | + +--------+ +---+ + | POC GLUCOSE (NON | Routin | 04/14/2019 | | Results for this | | ORD) | e | 1:46 AM | | procedure are in the | | | | PST | | results section. | + +--------+ +---+ + | TROPONIN I | Timed | 04/14/2019 | | Results for this | | | | 1:19 AM | | procedure are in the | | | | PST | | results section. | + +--------+ +---+ + | ECG 12 LEAD | STAT | 04/14/2019 | | Results for this | | | | 12:12 AM | | procedure are in the | | | | PST | | results section. | + +--------+ +---+ + | POC GLUCOSE (NON | Routin | 04/13/2019 | | Results for this | | ORD) | e | 9:16 PM | | procedure are in the | | | | PST | | results section. | + +--------+ +---+ + | POC GLUCOSE (NON | Routin | 04/13/2019 | | Results for this | | ORD) | e | 4:19 PM | | procedure are in the | | | | PST | | results section. | + +--------+ +---+ + | XR CHEST AP PORTABLE | [facility] | 04/13/2019 | | Results for this | | | | 3:50 PM | | procedure are in the | | | | PST | | results section. | + +--------+ +---+ + | IR ANGIOGRAM LOWER | Routin | 04/13/2019 | | Results for this | | EXTREMITY RIGHT | e | 3:14 PM | | procedure are in the | | | | PST | | results section. | + +--------+ +---+ + | POC GLUCOSE (NON | Routin | 04/13/2019 | | Results for this | | ORD) | e | 11:49 AM | | procedure are in the | | | | PST | | results section. | + +--------+ +---+ + | POC GLUCOSE (NON | Routin | 04/13/2019 | | Results for this | | ORD) | e | 7:59 AM | | procedure are in the | | | | PST | | results section. | + +--------+ +---+ + | CBC WITH | Routin | 04/13/2019 | | Results for this | | DIFFERENTIAL | e | 6:38 AM | | procedure are in the | | | | PST | | results section. | + +--------+ +---+ + | BASIC METABOLIC | Routin | 04/13/2019 | | Results for this | | PANEL | e | 6:38 AM | | procedure are in the | | | | PST | | results section. | + +--------+ +---+ + | POC GLUCOSE (NON | Routin | 04/13/2019 | | Results for this | | ORD) | e | 3:30 AM | | procedure are in the | | | | PST | | results section. | + +--------+ +---+ + | POC GLUCOSE (NON | Routin | 04/12/2019 | | Results for this | | ORD) | e | 9:14 PM | | procedure are in the | | | | PST | | results section. | + +--------+ +---+ + | POC GLUCOSE (NON | Routin | 04/12/2019 | | Results for this | | ORD) | e | 4:28 PM | | procedure are in the | | | | PST | | results section. | + +--------+ +---+ + | POC GLUCOSE (NON | Routin | 04/12/2019 | | Results for this | | ORD) | e | 11:53 AM | | procedure are in the | | | | PST | | results section. | + +--------+ +---+ + | POC GLUCOSE (NON | Routin | 04/12/2019 | | Results for this | | ORD) | e | 7:56 AM | | procedure are in the | | | | PST | | results section. | + +--------+ +---+ + | CBC WITH | Routin | 04/12/2019 | | Results for this | | DIFFERENTIAL | e | 6:20 AM | | procedure are in the | | | | PST | | results section. | + +--------+ +---+ + | BASIC METABOLIC | Routin | 04/12/2019 | | Results for this | | PANEL | e | 6:20 AM | | procedure are in the | | | | PST | | results section. | + +--------+ +---+ + | POC GLUCOSE (NON | Routin | 04/11/2019 | | Results for this | | ORD) | e | 9:20 PM | | procedure are in the | | | | PST | | results section. | + +--------+ +---+ + | POC GLUCOSE (NON | Routin | 04/11/2019 | | Results for this | | ORD) | e | 6:01 PM | | procedure are in the | | | | PST | | results section. | + +--------+ +---+ + | POC GLUCOSE (NON | Routin | 04/11/2019 | | Results for this | | ORD) | e | 3:22 PM | | procedure are in the | | | | PST | | results section. | + +--------+ +---+ + | IR ANGIOGRAM LOWER | Routin | 04/11/2019 | | Results for this | | EXTREMITY LEFT | e | 1:58 PM | | procedure are in the | | | | PST | | results section. | + +--------+ +---+ + | POC GLUCOSE (NON | Routin | 04/11/2019 | | Results for this | | ORD) | e | 8:29 AM | | procedure are in the | | | | PST | | results section. | + +--------+ +---+ + | CBC WITH | Routin | 04/11/2019 | | Results for this | | DIFFERENTIAL | e | 5:48 AM | | procedure are in the | | | | PST | | results section. | + +--------+ +---+ + | B TYPE NATRIURETIC | Add-On | 04/11/2019 | | Results for this | | PEPTIDE | | 5:48 AM | | procedure are in the | | | | PST | | results section. | + +--------+ +---+ + | BASIC METABOLIC | Routin | 04/11/2019 | | Results for this | | PANEL | e | 5:48 AM | | procedure are in the | | | | PST | | results section. | + +--------+ +---+ + | POC GLUCOSE (NON | Routin | 04/10/2019 | | Results for this | | ORD) | e | 9:22 PM | | procedure are in the | | | | PST | | results section. | + +--------+ +---+ + | POC GLUCOSE (NON | Routin | 04/10/2019 | | Results for this | | ORD) | e | 2:33 PM | | procedure are in the | | | | PST | | results section. | + +--------+ +---+ + | US RENAL COMPLETE | Routin | 04/10/2019 | | Results for this | | | e | 11:21 AM | | procedure are in the | | | | PST | | results section. | + +--------+ +---+ + | POC GLUCOSE (NON | Routin | 04/10/2019 | | Results for this | | ORD) | e | 7:31 AM | | procedure are in the | | | | PST | | results section. | + +--------+ +---+ + | CBC NO DIFFERENTIAL | Routin | 04/10/2019 | | Results for this | | | e | 5:25 AM | | procedure are in the | | | | PST | | results section. | + +--------+ +---+ + | POC GLUCOSE (NON | Routin | 04/09/2019 | | Results for this | | ORD) | e | 9:57 PM | | procedure are in the | | | | PST | | results section. | + +--------+ +---+ + | POC GLUCOSE (NON | Routin | 04/09/2019 | | Results for this | | ORD) | e | 5:06 PM | | procedure are in the | | | | PST | | results section. | + +--------+ +---+ + | POC GLUCOSE (NON | Routin | 04/09/2019 | | Results for this | | ORD) | e | 12:42 PM | | procedure are in the | | | | PST | | results section. | + +--------+ +---+ + | XR CHEST AP PORTABLE | Routin | 04/09/2019 | | Results for this | | | e | 9:02 AM | | procedure are in the | | | | PST | | results section. | + +--------+ +---+ + | URINALYSIS, REFLEX | Routin | 04/09/2019 | | Results for this | | MICROSCOPIC AND/OR | e | 8:48 AM | | procedure are in the | | CULTURE | | PST | | results section. | + +--------+ +---+ + | URINALYSIS, | Routin | 04/09/2019 | | Results for this | | MICROSCOPIC ONLY | e | 8:48 AM | | procedure are in the | | | | PST | | results section. | + +--------+ +---+ + | SEDIMENTATION RATE | Add-On | 04/09/2019 | | Results for this | | | | 6:16 AM | | procedure are in the | | | | PST | | results section. | + +--------+ +---+ + | CBC NO DIFFERENTIAL | Routin | 04/09/2019 | | Results for this | | | e | 6:16 AM | | procedure are in the | | | | PST | | results section. | + +--------+ +---+ + | COMPREHENSIVE | Routin | 04/09/2019 | | Results for this | | METABOLIC PANEL | e | 6:16 AM | | procedure are in the | | | | PST | | results section. | + +--------+ +---+ + | POC GLUCOSE (NON | Routin | 04/08/2019 | | Results for this | | ORD) | e | 10:09 PM | | procedure are in the | | | | PST | | results section. | + +--------+ +---+ + | HC OCCULT BLD FECES | Routin | 04/08/2019 | | Results for this | | 1-3 TESTS | e | 7:27 PM | | procedure are in the | | | | PST | | results section. | + +--------+ +---+ + | POC GLUCOSE (NON | Routin | 04/08/2019 | | Results for this | | ORD) | e | 6:34 PM | | procedure are in the | | | | PST | | results section. | + +--------+ +---+ + | XR ABDOMEN AP | Routin | 04/08/2019 | | Results for this | | | e | 2:41 PM | | procedure are in the | | | | PST | | results section. | + +--------+ +---+ + | POC GLUCOSE (NON | Routin | 04/08/2019 | | Results for this | | ORD) | e | 11:25 AM | | procedure are in the | | | | PST | | results section. | + +--------+ +---+ + | XR CHEST AP PORTABLE | Routin | 04/08/2019 | | Results for this | | | e | 9:25 AM | | procedure are in the | | | | PST | | results section. | + +--------+ +---+ + | POC GLUCOSE (NON | Routin | 04/08/2019 | | Results for this | | ORD) | e | 6:32 AM | | procedure are in the | | | | PST | | results section. | + +--------+ +---+ + | CBC NO DIFFERENTIAL | Routin | 04/08/2019 | | Results for this | | | e | 5:45 AM | | procedure are in the | | | | PST | | results section. | + +--------+ +---+ + | B TYPE NATRIURETIC | Add-On | 04/08/2019 | | Results for this | | PEPTIDE | | 5:45 AM | | procedure are in the | | | | PST | | results section. | + +--------+ +---+ + | COMPREHENSIVE | Routin | 04/08/2019 | | Results for this | | METABOLIC PANEL | e | 5:45 AM | | procedure are in the | | | | PST | | results section. | + +--------+ +---+ + | POC GLUCOSE (NON | Routin | 04/07/2019 | | Results for this | | ORD) | e | 8:36 PM | | procedure are in the | | | | PST | | results section. | + +--------+ +---+ + | POC GLUCOSE (NON | Routin | 04/07/2019 | | Results for this | | ORD) | e | 4:25 PM | | procedure are in the | | | | PST | | results section. | + +--------+ +---+ + | POC GLUCOSE (NON | Routin | 04/07/2019 | | Results for this | | ORD) | e | 12:40 PM | | procedure are in the | | | | PST | | results section. | + +--------+ +---+ + | XR FOOT RIGHT 3 + VW | Routin | 04/07/2019 | | Results for this | | | e | 11:05 AM | | procedure are in the | | | | PST | | results section. | + +--------+ +---+ + | XR FOOT LEFT 3 + VW | Routin | 04/07/2019 | | Results for this | | | e | 11:04 AM | | procedure are in the | | | | PST | | results section. | + +--------+ +---+ + | POC GLUCOSE (NON | Routin | 04/07/2019 | | Results for this | | ORD) | e | 8:49 AM | | procedure are in the | | | | PST | | results section. | + +--------+ +---+ + | CBC NO DIFFERENTIAL | Routin | 04/07/2019 | | Results for this | | | e | 5:02 AM | | procedure are in the | | | | PST | | results section. | + +--------+ +---+ + | MAGNESIUM | Add-On | 04/07/2019 | | Results for this | | | | 5:02 AM | | procedure are in the | | | | PST | | results section. | + +--------+ +---+ + | IRON, TOTAL | Add-On | 04/07/2019 | | Results for this | | | | 5:02 AM | | procedure are in the | | | | PST | | results section. | + +--------+ +---+ + | COMPREHENSIVE | Routin | 04/07/2019 | | Results for this | | METABOLIC PANEL | e | 5:02 AM | | procedure are in the | | | | PST | | results section. | + +--------+ +---+ + | POC GLUCOSE (NON | Routin | 04/06/2019 | | Results for this | | ORD) | e | 8:54 PM | | procedure are in the | | | | PST | | results section. | + +--------+ +---+ + | POC GLUCOSE (NON | Routin | 04/06/2019 | | Results for this | | ORD) | e | 4:29 PM | | procedure are in the | | | | PST | | results section. | + +--------+ +---+ + | HC BACTERIAL CULTURE | Routin | 04/06/2019 | | Results for this | | - OTHR SOURCE | e | 3:46 PM | | procedure are in the | | | | PST | | results section. | + +--------+ +---+ + | HC BACTERIAL CULTURE | Routin | 04/06/2019 | | Results for this | | - OTHR SOURCE | e | 3:46 PM | | procedure are in the | | | | PST | | results section. | + +--------+ +---+ + | HC VITAMIN B-12 | Add-On | 04/06/2019 | | Results for this | | | | 2:30 PM | | procedure are in the | | | | PST | | results section. | + +--------+ +---+ + | TROPONIN I | STAT | 04/06/2019 | | Results for this | | | | 2:30 PM | | procedure are in the | | | | PST | | results section. | + +--------+ +---+ + | FERRITIN | Add-On | 04/06/2019 | | Results for this | | | | 2:30 PM | | procedure are in the | | | | PST | | results section. | + +--------+ +---+ + | POC GLUCOSE (NON | Routin | 04/06/2019 | | Results for this | | ORD) | e | 11:28 AM | | procedure are in the | | | | PST | | results section. | + +--------+ +---+ + | VAS LOWER EXTREMITY | Routin | 04/06/2019 | | Results for this | | ARTERIES BILATERAL | e | 11:01 AM | | procedure are in the | | | | PST | | results section. | + +--------+ +---+ + | POC GLUCOSE (NON | Routin | 04/06/2019 | | Results for this | | ORD) | e | 9:10 AM | | procedure are in the | | | | PST | | results section. | + +--------+ +---+ + | TROPONIN I | STAT | 04/06/2019 | | Results for this | | | | 8:31 AM | | procedure are in the | | | | PST | | results section. | + +--------+ +---+ + | XR CHEST AP PORTABLE | Routin | 04/06/2019 | | Results for this | | | e | 5:20 AM | | procedure are in the | | | | PST | | results section. | + +--------+ +---+ + | CULTURE, BLOOD | STAT | 04/06/2019 | | Results for this | | | | 3:38 AM | | procedure are in the | | | | PST | | results section. | + +--------+ +---+ + | CULTURE, BLOOD | STAT | 04/06/2019 | | Results for this | | | | 3:31 AM | | procedure are in the | | | | PST | | results section. | + +--------+ +---+ + | LIPID PANEL | Routin | 04/06/2019 | | Results for this | | | e | 2:48 AM | | procedure are in the | | | | PST | | results section. | + +--------+ +---+ + | TROPONIN I | STAT | 04/06/2019 | | Results for this | | | | 2:48 AM | | procedure are in the | | | | PST | | results section. | + +--------+ +---+ + | PTT | STAT | 04/06/2019 | | Results for this | | | | 2:48 AM | | procedure are in the | | | | PST | | results section. | + +--------+ +---+ + | PROTIME INR | STAT | 04/06/2019 | | Results for this | | | | 2:48 AM | | procedure are in the | | | | PST | | results section. | + +--------+ +---+ + | CBC WITH | Routin | 04/06/2019 | | Results for this | | DIFFERENTIAL | e | 2:48 AM | | procedure are in the | | | | PST | | results section. | + +--------+ +---+ + | B TYPE NATRIURETIC | Routin | 04/06/2019 | | Results for this | | PEPTIDE | e | 2:48 AM | | procedure are in the | | | | PST | | results section. | + +--------+ +---+ + | MAGNESIUM | Routin | 04/06/2019 | | Results for this | | | e | 2:48 AM | | procedure are in the | | | | PST | | results section. | + +--------+ +---+ + | HEMOGLOBIN A1C | Routin | 04/06/2019 | | Results for this | | | e | 2:48 AM | | procedure are in the | | | | PST | | results section. | + +--------+ +---+ + | COMPREHENSIVE | Routin | 04/06/2019 | | Results for this | | METABOLIC PANEL | e | 2:48 AM | | procedure are in the | | | | PST | | results section. | + +--------+ +---+ + documented in this encounter Results Renal [...] 3.6 | 2.3 - 4.8 mg/dL | [facility] | | | | | | LABORATORY | | + + + + + + | Estimated | >60Comment: GFR <60: | >60 | [facility] | | | GFR | CHRONIC KIDNEY [...] | | | | | | MDRD IDVT traceable | | | | | | equation.Testing | | | | | | performed at [facility] | | | | | | [facility];[place], [place] | | | | | | [address] | | | | + + + + + + + + | Specimen | + + | Blood | + + + + + + + | Performing | Address | City/State/Zipcode | Phone Number | | Organization | | | | + + + + + | [facility] | [address] | [place] [address] | [phone] | + + + + + POC Glucose (04/21/2019 11:54 AM PST) + + + + + + | Component | Value | Ref Range | Performed | Pathologist | | | | | At | Signature | + + + + + + | Glucose, | 164 (H)Comment: Testing | 65 - 99 mg/dL | [facility] | | | POC | performed at [facility];[address] | | LABORATORY | | | | [address];[place] | | | | | | [address] | | | | + + + + + + + + | Specimen | + + | | + + + + + + + | Performing | Address | City/State/Zipcode | Phone Number | | Organization | | | | + + + + + | [facility] | [address] | [place] [address] | [phone] | + + + + + POC [...] | | | POC | performed at [facility];[address] | | LABORATORY | | | | [address];[place], [place] | | | | | | [address] | | | | + + + + + + + + | Specimen | + + | | + + + + + + + | Performing | Address | City/State/Zipcode | Phone Number | | Organization | | | | + + + + + | [facility] | [address] | [place] [address] | [phone] | + + + + + POC [...] | | | POC | performed at [facility];[address] | | LABORATORY | | | | [address];[place] | | | | | | [address] | | | | + + + + + + + + | Specimen | + + | | + + + + + + + | Performing | Address | City/State/Zipcode | Phone Number | | Organization | | | | + + + + + | [facility] | [address] | [place] [address] | [phone] | + + + + + POC Glucose (04/20/2019 9:08 PM PST) + + + + + + | Component | Value | Ref Range | Performed | Pathologist | | | | | At | Signature | + + + + + + | Glucose, | 157 (H)Comment: Testing | 65 - 99 mg/dL | [facility] | | | POC | performed at [facility];[address] | | LABORATORY | | | | [address];[place] | | | | | | [address] | | | | + + + + + + + + | Specimen | + + | | + + + + + + + | Performing | Address | City/State/Zipcode | Phone Number | | Organization | | | | + + + + + | [facility] | [address] | [place] [address] | [phone] | + + + + + POC [...] | | | POC | performed at [facility];[address] | | LABORATORY | | | | [address];[place], [place] | | | | | | [address] | | | | + + + + + + + + | Specimen | + + | | + + + + + + + | Performing | Address | City/State/Zipcode | Phone Number | | Organization | | | | + + + + + | [facility] | [address] | [place] [address] | [phone] | + + + + + POC Glucose (04/20/2019 5:04 PM PST) + + + + + + | Component | Value | Ref Range | Performed | Pathologist | | | | | At | Signature | + + + + + + | Glucose, | 199 (H)Comment: Testing | 65 - 99 mg/dL | [facility] | | | POC | performed at [facility];[address] | | LABORATORY | | | | [address];[place] | | | | | | [address] | | | | + + + + + + + + | Specimen | + + | | + + + + + + + | Performing | Address | City/State/Zipcode | Phone Number | | Organization | | | | + + + + + | [facility] | [address] | [place] [address] | [phone] | + + + + + POC Glucose (04/20/2019 12:44 PM PST) + + + + + + | Component | Value | Ref Range | Performed | Pathologist | | | | | At | Signature | + + + + + + | Glucose, | 273 (H)Comment: Testing | 65 - 99 mg/dL | [facility] | | | POC | performed at [facility];[address] | | LABORATORY | | | | [address];[place], [place] | | | | | | [address] | | | | + + + + + + + + | Specimen | + + | | + + + + + + + | Performing | Address | City/State/Zipcode | Phone Number | | Organization | | | | + + + + + | [facility] | [address] | [place] [address] | [phone] | + + + + + Vancomycin Level (04/20/2019 12:39 PM PST) + + + + + + | Component | Value | Ref Range | Performed | Pathologist | | | | | At | Signature | + + + + + + | Vancomycin | 18.3Comment: Testing | ug/mL | [facility] | | | Random, | performed at [facility];[address] | | LABORATORY | | | Serum | [address];[place], [place] | | | | | | [address] | | | | + + + + + + + + | Specimen | + + | Blood | + + + + + + + | Performing | Address | City/State/Zipcode | Phone Number | | Organization | | | | + + + + + | [facility] | [address] | [place] [address] | [phone] | + + + + + POC Glucose (04/20/2019 8:58 AM PST) + + + + + + | Component | Value | Ref Range | Performed | Pathologist | | | | | At | Signature | + + + + + + | Glucose, | 244 (H)Comment: Testing | 65 - 99 mg/dL | [facility] | | | POC | performed at [facility];[address] | | LABORATORY | | | | [address];[place] | | | | | | [address] | | | | + + + + + + + + | Specimen | + + | | + + + + + + + | Performing | Address | City/State/Zipcode | Phone Number | | Organization | | | | + + + + + | [facility] | [address] | [place] [address] | [phone] | + + + + + POC Glucose (04/20/2019 8:16 AM PST) + + + + + + | Component | Value | Ref Range | Performed | Pathologist | | | | | At | Signature | + + + + + + | Glucose, | 300 (H)Comment: Testing | 65 - 99 mg/dL | [facility] | | | POC | performed at [facility];[address] | | LABORATORY | | | | [address];[place] | | | | | | [address] | | | | + + + + + + + + | Specimen | + + | | + + + + + + + | Performing | Address | City/State/Zipcode | Phone Number | | Organization | | | | + + + + + | [facility] | [address] | [place] [address] | [phone] | + + + + + POC [...] | | | POC | performed at [facility];[address] | | LABORATORY | | | | [address];[place], [place] | | | | | | [address] | | | | + + + + + + + + | Specimen | + + | | + + + + + + + | Performing | Address | City/State/Zipcode | Phone Number | | Organization | | | | + + + + + | [facility] | [address] | [place] [address] | [phone] | + + + + + POC [...] | | | POC | performed at [facility];[address] | | LABORATORY | | | | [address];[place], [place] | | | | | | [address] | | | | + + + + + + + + | Specimen | + + | | + + + + + + + | Performing | Address | City/State/Zipcode | Phone Number | | Organization | | | | + + + + + | [facility] | [address] [facility] | [place] [address] | [phone] | + + + + + POC [...] | | | POC | performed at [facility];[address] | | LABORATORY | | | | [address];[place], [place] | | | | | | [address] | | | | + + + + + + + + | Specimen | + + | | + + + + + + + | Performing | Address | City/State/Zipcode | Phone Number | | Organization | | | | + + + + + | [facility] | [address] | [place] [address] | [phone] | + + + + + POC Glucose (04/19/2019 8:13 AM PST) + + + + + + | Component | Value | Ref Range | Performed | Pathologist | | | | | At | Signature | + + + + + + | Glucose, | 176 (H)Comment: Testing | 65 - 99 mg/dL | [facility] | | | POC | performed at [facility];[address] | | LABORATORY | | | | [address];[place] | | | | | | [address] | | | | + + + + + + + + | Specimen | + + | | + + + + + + + | Performing | Address | City/State/Zipcode | Phone Number | | Organization | | | | + + + + + | [facility] | [address] | [place] [address] | [phone] | + + + + + Basic [...] 8.0 (L) | 8.5 - 10.5 | [facility] | | | | | mg/dL | LABORATORY | | + + + + + + | Estimated | >60Comment: GFR <60: | >60 | [facility] | | | GFR | CHRONIC KIDNEY [...] | | | | | | MDRD IDVT traceable | | | | | | equation.Testing | | | | | | performed at [facility], [address] | | | | | | [facility], | | | | | | [place] [address] | | | | + + + + + + + + | Specimen | + + | Blood | + + + + + + + | Performing | Address | City/State/Zipcode | Phone Number | | Organization | | | | + + + + + | [facility] | [address] | [place] [address] | [phone] | + + + + + CBC [...] W | | | | | | [facility], | | | | | | [place] [address] | | | | | |MICRO | | | | | |NORMAL PLT MORPH | | | | | |Testing performed at [facility], [address] [facility], [place] [address] | | | | | | | | | | + + +---- + + + + + | Specimen | + + | Blood | + + + + + + + | Performing | Address | City/State/Zipcode | Phone Number | | Organization | | | | + + + + + | [facility] | [address] [facility] | [place] [address] | [phone] | + + + + + POC [...] | | | POC | performed at [facility];[address] | | LABORATORY | | | | [address];[place], [place] | | | | | | [address] | | | | + + + + + + + + | Specimen | + + | | + + + + + + + | Performing | Address | City/State/Zipcode | Phone Number | | Organization | | | | + + + + + | [facility] | [address] | [place] [address] | [phone] | + + + + + POC Glucose (04/18/2019 9:02 PM PST) + + + + + + | Component | Value | Ref Range | Performed | Pathologist | | | | | At | Signature | + + + + + + | Glucose, | 295 (H)Comment: Testing | 65 - 99 mg/dL | [facility] | | | POC | performed at [facility];[address] | | LABORATORY | | | | [address];[place] | | | | | | [address] | | | | + + + + + + + + | Specimen | + + | | + + + + + + + | Performing | Address | City/State/Zipcode | Phone Number | | Organization | | | | + + + + + | [facility] | [address] | [place] [address] | [phone] | + + + + + POC Glucose (04/18/2019 8:01 PM PST) + + + + + + | Component | Value | Ref Range | Performed | Pathologist | | | | | At | Signature | + + + + + + | Glucose, | 245 (H)Comment: Testing | 65 - 99 mg/dL | [facility] | | | POC | performed at [facility];[address] | | LABORATORY | | | | [address];[place] | | | | | | [address] | | | | + + + + + + + + | Specimen | + + | | + + + + + + + | Performing | Address | City/State/Zipcode | Phone Number | | Organization | | | | + + + + + | [facility] | [address] | [place] [address] | [phone] | + + + + + POC [...] | | | POC | performed at [facility];[address] | | LABORATORY | | | | [address];[place], [place] | | | | | | [address] | | | | + + + + + + + + | Specimen | + + | | + + + + + + + | Performing | Address | City/State/Zipcode | Phone Number | | Organization | | | | + + + + + | [facility] | [address] | [place] [address] | [phone] | + + + + + POC [...] | | | POC | performed at [facility];[address] | | LABORATORY | | | | [address];[place], [place] | | | | | | [address] | | | | + + + + + + + + | Specimen | + + | | + + + + + + + | Performing | Address | City/State/Zipcode | Phone Number | | Organization | | | | + + + + + | [facility] | [address] [facility] | [place] [address] | [phone] | + + + + + NM [...] | | | POC | performed at [facility];[address] | | LABORATORY | | | | [address];[place] | | | | | | [address] | | | | + + + + + + + + | Specimen | + + | | + + + + + + + | Performing | Address | City/State/Zipcode | Phone Number | | Organization | | | | + + + + + | [facility] | [address] | [place] [address] | [phone] | + + + + + Basic [...] | | | | | performed at [facility];[address] | | | | | | [facility];[place], [place] | | | | | | [address] | | | | + + + + + + + + | Specimen | + + | Blood | + + + + + + + | Performing | Address | City/State/Zipcode | Phone Number | | Organization | | | | + + + + + | [facility] | [address] | [place] [address] | [phone] | + + + + + CBC [...] | | | Estimate | performed at [facility];[address] | | LABORATORY | | | | [address];[place] | | | | | | [address] | | | | + + + + + + + + | Specimen | + + | Blood | + + + + + + + | Performing | Address | City/State/Zipcode | Phone Number | | Organization | | | | + + + + + | [facility] | [address] | [place] [address] | [phone] | + + + + + POC [...] | | | POC | performed at [facility];[address] | | LABORATORY | | | | [address];[place] | | | | | | [address] | | | | + + + + + + + + | Specimen | + + | | + + + + + + + | Performing | Address | City/State/Zipcode | Phone Number | | Organization | | | | + + + + + | [facility] | [address] | [place] [address] | [phone] | + + + + + POC [...] | | | POC | performed at [facility];[address] | | LABORATORY | | | | [address];[place], [place] | | | | | | [address] | | | | + + + + + + + + | Specimen | + + | | + + + + + + + | Performing | Address | City/State/Zipcode | Phone Number | | Organization | | | | + + + + + | [facility] | [address] | [place] [address] | [phone] | + + + + + Vancomycin, [...] | | | | | performed at [facility] | | | | | | [address];[place], [place] | | | | | | [address] | | | | + + + + + + + + | Specimen | + + | Blood | + + + + + + + | Performing | Address | City/State/Zipcode | Phone Number | | Organization | | | | + + + + + | [facility] | [address] | [place] [address] | [phone] | + + + + + POC Glucose (04/17/2019 12:05 PM PST) + + + + + + | Component | Value | Ref Range | Performed | Pathologist | | | | | At | Signature | + + + + + + | Glucose, | 200 (H)Comment: Testing | 65 - 99 mg/dL | [facility] | | | POC | performed at [facility];[address] | | LABORATORY | | | | [address];[place] | | | | | | [address] | | | | + + + + + + + + | Specimen | + + | | + + + + + + + | Performing | Address | City/State/Zipcode | Phone Number | | Organization | | | | + + + + + | [facility] | [address] | [place] [address] | [phone] | + + + + + POC Glucose (04/17/2019 10:11 AM PST) + + + + + + | Component | Value | Ref Range | Performed | Pathologist | | | | | At | Signature | + + + + + + | Glucose, | 138 (H)Comment: Testing | 65 - 99 mg/dL | [facility] | | | POC | performed at [facility];[address] | | LABORATORY | | | | [address];[place] | | | | | | [address] | | | | + + + + + + + + | Specimen | + + | | + + + + + + + | Performing | Address | City/State/Zipcode | Phone Number | | Organization | | | | + + + + + | [facility] | [address] | [place] [address] | [phone] | + + + + + POC [...] | | | POC | performed at [facility];[address] | | LABORATORY | | | | [address];[place], [place] | | | | | | [address] | | | | + + + + + + + + | Specimen | + + | | + + + + + + + | Performing | Address | City/State/Zipcode | Phone Number | | Organization | | | | + + + + + | [facility] | [address] | [place] [address] | [phone] | + + + + + Basic [...] | >60Comment: GFR <60: | >60 | [facility] | | | GFR | CHRONIC KIDNEY [...] | | | | | | MDRD IDVT traceable | | | | | | equation.Testing | | | | | | performed at [facility], [address] | | | | | | [facility], | | | | | | [place] [address] | | | | + + + + + + + + | Specimen | + + | Blood | + + + + + + + | Performing | Address | City/State/Zipcode | Phone Number | | Organization | | | | + + + + + | [facility] | [address] | [place] [address] | [phone] | + + + + + CBC [...] [address], | | | | | | [place] [address] | | | | | |MICRO | | | | | |NORMAL PLT MORPH | | | | | |Testing performed at [facility], [address] [facility], [place] [address] | | | | | | | | | | + + +---- + + + + + | Specimen | + + | Blood | + + + + + + + | Performing | Address | City/State/Zipcode | Phone Number | | Organization | | | | + + + + + | [facility] | [address] [facility] | [place] [address] | [phone] | + + + + + POC Glucose (04/16/2019 8:57 PM PST) + + + + + + | Component | Value | Ref Range | Performed | Pathologist | | | | | At | Signature | + + + + + + | Glucose, | 96Comment: Testing | 65 - 99 mg/dL | [facility] | | | POC | performed at [facility];[address] | | LABORATORY | | | | [address];[place], [place] | | | | | | [address] | | | | + + + + + + + + | Specimen | + + | | + + + + + + + | Performing | Address | City/State/Zipcode | Phone Number | | Organization | | | | + + + + + | [facility] | [address] | [place] [address] | [phone] | + + + + + POC [...] | | | POC | performed at [facility];[address] | | LABORATORY | | | | [address];[place] | | | | | | [address] | | | | + + + + + + + + | Specimen | + + | | + + + + + + + | Performing | Address | City/State/Zipcode | Phone Number | | Organization | | | | + + + + + | [facility] | [address] | [place] [address] | [phone] | + + + + + POC Glucose (04/16/2019 1:15 PM PST) + + + + + + | Component | Value | Ref Range | Performed | Pathologist | | | | | At | Signature | + + + + + + | Glucose, | 106 (H)Comment: Testing | 65 - 99 mg/dL | [facility] | | | POC | performed at [facility];[address] | | LABORATORY | | | | [address];[place] | | | | | | [address] | | | | + + + + + + + + | Specimen | + + | | + + + + + + + | Performing | Address | City/State/Zipcode | Phone Number | | Organization | | | | + + + + + | [facility] | [address] | [place] [address] | [phone] | + + + + + POC [...] | | | POC | performed at [facility];[address] | | LABORATORY | | | | [address];[place] | | | | | | [address] | | | | + + + + + + + + | Specimen | + + | | + + + + + + + | Performing | Address | City/State/Zipcode | Phone Number | | Organization | | | | + + + + + | [facility] | [address] | [place] [address] | [phone] | + + + + + CBC [...] | | | | | performed at [facility], [address] | | | | | | [address], | | | | | | [place] [address] | | | | | |MICRO | | | | | |NORMAL PLT MORPH | | | | | |Testing performed at [facility], [address] [place] [address] | | | | | | | | | | + + +---- + + + + + | Specimen | + + | Blood | + + + + + + + | Performing | Address | City/State/Zipcode | Phone Number | | Organization | | | | + + + + + | [facility] | [address] [facility] | [place] [address] | [phone] | + + + + + Basic [...] | | | | | performed at [facility], [address] | | | | | | [place], | | | | | | [place] [address] | | | | + + + + + + + + | Specimen | + + | Blood | + + + + + + + | Performing | Address | City/State/Zipcode | Phone Number | | Organization | | | | + + + + + | [facility] | [address] | [place] [address] | [phone] | + + + + + POC [...] | | | POC | performed at [facility];[address] | | LABORATORY | | | | [address];[place] | | | | | | [address] | | | | + + + + + + + + | Specimen | + + | | + + + + + + + | Performing | Address | City/State/Zipcode | Phone Number | | Organization | | | | + + + + + | [facility] | [address] | [place] [address] | [phone] | + + + + + POC Glucose (04/15/2019 4:51 PM PST) + + + + + + | Component | Value | Ref Range | Performed | Pathologist | | | | | At | Signature | + + + + + + | Glucose, | 239 (H)Comment: Testing | 65 - 99 mg/dL | [facility] | | | POC | performed at [facility];[address] | | LABORATORY | | | | [address];[place] | | | | | | [address] | | | | + + + + + + + + | Specimen | + + | | + + + + + + + | Performing | Address | City/State/Zipcode | Phone Number | | Organization | | | | + + + + + | [facility] | [address] | [place] [address] | [phone] | + + + + + POC Glucose (04/15/2019 1:19 PM PST) + + + + + + | Component | Value | Ref Range | Performed | Pathologist | | | | | At | Signature | + + + + + + | Glucose, | 227 (H)Comment: Testing | 65 - 99 mg/dL | [facility] | | | POC | performed at [facility];[address] | | LABORATORY | | | | [address];[place] | | | | | | [address] | | | | + + + + + + + + | Specimen | + + | | + + + + + + + | Performing | Address | City/State/Zipcode | Phone Number | | Organization | | | | + + + + + | [facility] | [address] | [place] [address] | [phone] | + + + + + Type [...] + + + | BB BAND | [id number] | | [facility] | | | | | | LABORATORY | | + + + + + + | UNIT # | [id number] | | [facility] | | | | [...] + + + | UNIT # | [id number] | | [facility] | | | | [...] + + + | UNIT # | [id number] | | [facility] | | | | [...] | | | RESULT | performed at [facility];[address] | | LABORATORY | | | | [address];[place], [place] | | | | | | [address] | | | | + + + + + + + + | Specimen | + + | Blood | + + + + + + + | Performing | Address | City/State/Zipcode | Phone Number | | Organization | | | | + + + + + | [facility] | [address] | [place] [address] | [phone] | + + + + + Red [...] | ORDER RECEIVED IN BLOOD | | [facility] | | | COMMENT | BANK. | | LABORATORY | | + + + + + + | BLOOD BANK | Testing performed at | | [facility] | | | COMMENT | [facility];[address] | | LABORATORY | | | | [address];[place] [address] | | | | + + + + + + + + | Specimen | + + | | + + + + + + + | Performing | Address | City/State/Zipcode | Phone Number | | Organization | | | | + + + + + | [facility] | [address] | [place] [address] | [phone] | + + + + + POC Glucose (04/15/2019 9:11 AM PST) + + + + + + | Component | Value | Ref Range | Performed | Pathologist | | | | | At | Signature | + + + + + + | Glucose, | 165 (H)Comment: Testing | 65 - 99 mg/dL | [facility] | | | POC | performed at [facility];[address] | | LABORATORY | | | | [address];[place] | | | | | | [address] | | | | + + + + + + + + | Specimen | + + | | + + + + + + + | Performing | Address | City/State/Zipcode | Phone Number | | Organization | | | | + + + + + | [facility] | [address] | [place] [address] | [phone] | + + + + + Vancomycin, [...] | | | | | performed at [facility] | | | | | | [address];[place], [place] | | | | | | [address] | | | | + + + + + + + + | Specimen | + + | Blood | + + + + + + + | Performing | Address | City/State/Zipcode | Phone Number | | Organization | | | | + + + + + | [facility] | [address] | [place] [address] | [phone] | + + + + + CBC [...] | | | Estimate | performed at [facility];[address] | | LABORATORY | | | | [address];[place] | | | | | | [address] | | | | + + + + + + + + | Specimen | + + | Blood | + + + + + + + | Performing | Address | City/State/Zipcode | Phone Number | | Organization | | | | + + + + + | [facility] | [address] | [place] [address] | [phone] | + + + + + Basic [...] | | | | | performed at [facility];[address] | | | | | | [facility], [place] | | | | | | [address] | | | | + + + + + + + + | Specimen | + + | Blood | + + + + + + + | Performing | Address | City/State/Zipcode | Phone Number | | Organization | | | | + + + + + | [facility] | [address] | [place] [address] | [phone] | + + + + + POC Glucose (04/14/2019 8:15 PM PST) + + + + + + | Component | Value | Ref Range | Performed | Pathologist | | | | | At | Signature | + + + + + + | Glucose, | 159 (H)Comment: Testing | 65 - 99 mg/dL | [facility] | | | POC | performed at [facility];[address] | | LABORATORY | | | | [address];[place] | | | | | | [address] | | | | + + + + + + + + | Specimen | + + | | + + + + + + + | Performing | Address | City/State/Zipcode | Phone Number | | Organization | | | | + + + + + | [facility] | [address] | [place] [address] | [phone] | + + + + + POC [...] | | | POC | performed at [facility];[address] | | LABORATORY | | | | [address];[place], [place] | | | | | | [address] | | | | + + + + + + + + | Specimen | + + | | + + + + + + + | Performing | Address | City/State/Zipcode | Phone Number | | Organization | | | | + + + + + | [facility] | [address] | [place] [address] | [phone] | + + + + + POC Glucose (04/14/2019 11:43 AM PST) + + + + + + | Component | Value | Ref Range | Performed | Pathologist | | | | | At | Signature | + + + + + + | Glucose, | 153 (H)Comment: Testing | 65 - 99 mg/dL | [facility] | | | POC | performed at [facility];[address] | | LABORATORY | | | | [address];[place] | | | | | | [address] | | | | + + + + + + + + | Specimen | + + | | + + + + + + + | Performing | Address | City/State/Zipcode | Phone Number | | Organization | | | | + + + + + | [facility] | [address] | [place] [address] | [phone] | + + + + + ECHO [...] +--------+ + + + | [address] peak joes roberto | 240.91 | cm/s | [facility] [...] | | | POC | performed at [facility];[address] | | LABORATORY | | | | [address];[place] | | | | | | [address] | | | | + + + + + + + + | Specimen | + + | | + + + + + + + | Performing | Address | City/State/Zipcode | Phone Number | | Organization | | | | + + + + + | [facility] | [address] | [place] [address] | [phone] | + + + + + B [...] | | LABORATORY | | | | [facility];[address];[place] [address] | | | | + + + + + + + + | Specimen | + + | | + + + + + + + | Performing | Address | City/State/Zipcode | Phone Number | | Organization | | | | + + + + + | [facility] | [address] | [place] [address] | [phone] | + + + + + CBC [...] | | | Estimate | performed at [facility];[address] | | LABORATORY | | | | [address];[place] | | | | | | [address] | | | | + + + + + + + + | Specimen | + + | | + + + + + + + | Performing | Address | City/State/Zipcode | Phone Number | | Organization | | | | + + + + + | [facility] | [address] | [place] [address] | [phone] | + + + + + Troponin [...] at | | | | | | [facility];[address] [facility] | | | | | | [facility];[place] [address] | | | | + + + + + + + + | Specimen | + + | Blood | + + + + + + + | Performing | Address | City/State/Zipcode | Phone Number | | Organization | | | | + + + + + | [facility] | [address] | [place] [address] | [phone] | + + + + + Basic [...] | >60Comment: GFR <60: | >60 | [facility] | | | GFR | CHRONIC KIDNEY [...] | | | | | | MDRD [facility] traceable | | | | | | equation.Testing | | | | | | performed at [facility] | | | | | | [facility];[place], [place] | | | | | | [address] | | | | + + + + + + + + | Specimen | + + | Blood | + + + + + + + | Performing | Address | City/State/Zipcode | Phone Number | | Organization | | | | + + + + + | [facility] | [address] | [place] [address] | [phone] | + + + + + Vancomycin Level (04/14/2019 4:53 AM PST) + + + + + + | Component | Value | Ref Range | Performed | Pathologist | | | | | At | Signature | + + + + + + | Vancomycin | 20.6Comment: Testing | ug/mL | [facility] | | | Random, | performed at [facility];[address] | | LABORATORY | | | Serum | [address];[place] | | | | | | [address] | | | | + + + + + + + + | Specimen | + + | Blood | + + + + + + + | Performing | Address | City/State/Zipcode | Phone Number | | Organization | | | | + + + + + | [facility] | [address] | [place] [address] | [phone] | + + + + + POC Glucose (04/14/2019 1:46 AM PST) + + + + + + | Component | Value | Ref Range | Performed | Pathologist | | | | | At | Signature | + + + + + + | Glucose, | 166 (H)Comment: Testing | 65 - 99 mg/dL | [facility] | | | POC | performed at [facility];[address] | | LABORATORY | | | | [address];[place] | | | | | | [address] | | | | + + + + + + + + | Specimen | + + | | + + + + + + + | Performing | Address | City/State/Zipcode | Phone Number | | Organization | | | | + + + + + | [facility] | [address] | [place] [address] | [phone] | + + + + + Troponin I (04/14/2019 1:19 AM PST) + + + + + + | Component | Value | Ref Range | Performed | Pathologist | | | | | At | Signature | + + + + + + | Troponin I | 0.015Comment: 0.04 | 0.00 - 0.04 | [facility] | | | | ng/mL or less [...] at | | | | | | [facility];[address];[place] [address] | | | | + + + + + + + + | Specimen | + + | Blood | + + + + + + + | Performing | Address | City/State/Zipcode | Phone Number | | Organization | | | | + + + + + | [facility] | [address] | [place] [address] | [phone] | + + + + + ECG [...] | | | POC | performed at [facility];[address] | | LABORATORY | | | | [address];[place] | | | | | | [address] | | | | + + + + + + + + | Specimen | + + | | + + + + + + + | Performing | Address | City/State/Zipcode | Phone Number | | Organization | | | | + + + + + | [facility] | [address] | [place] [address] | [phone] | + + + + + POC Glucose (04/13/2019 4:19 PM PST) + + + + + + | Component | Value | Ref Range | Performed | Pathologist | | | | | At | Signature | + + + + + + | Glucose, | 109 (H)Comment: Testing | 65 - 99 mg/dL | [facility] | | | POC | performed at [facility];[address] | | LABORATORY | | | | [address];[place] | | | | | | [address] | | | | + + + + + + + + | Specimen | + + | | + + + + + + + | Performing | Address | City/State/Zipcode | Phone Number | | Organization | | | | + + + + + | [facility] | [address] | [place] [address] | [phone] | + + + + + XR [...] catheterization with right leg runoff4. Right SFA MAINTENANCE MECHANIC HELPER | | | crossing and atherectomy using Bard 14 S crossing catheter SURGEON: | | | Simba Cheng MD VERTICAL BORING MILL OPERATOR: None ANESTHESIA: Moderate sedation and local | [...] | | identified and brought to the Major Assembler. The patient was placed supine | | [...] sized to a 4 | | | Niuean sheath. A Omni flush catheter was then [...] inserted over the catheter and the 4 Niuean sheath was | | | removed. A 7 Niuean destination sheath was then inserted over the [...] | | | POC | performed at [facility];[address] | | LABORATORY | | | | [address];[place], [place] | | | | | | [address] | | | | + + + + + + + + | Specimen | + + | | + + + + + + + | Performing | Address | City/State/Zipcode | Phone Number | | Organization | | | | + + + + + | [facility] | [address] | [place] [address] | [phone] | + + + + + POC [...] | | | POC | performed at [facility];[address] | | LABORATORY | | | | [address];[place], [place] | | | | | | [address] | | | | + + + + + + + + | Specimen | + + | | + + + + + + + | Performing | Address | City/State/Zipcode | Phone Number | | Organization | | | | + + + + + | [facility] | [address] | [place] [address] | [phone] | + + + + + Basic [...] | | | | | performed at [facility], [address] | | | | | | [facility], | | | | | | [place] [address] | | | | + + + + + + + + | Specimen | + + | Blood | + + + + + + + | Performing | Address | City/State/Zipcode | Phone Number | | Organization | | | | + + + + + | [facility] | [address] | [place] [address] | [phone] | + + + + + CBC [...] | | | | | performed at [facility], [facility] [address] | | | | | | [facility], | | | | | | [place] [address] | | | | | |MICRO | | | | | |NORMAL PLT MORPH | | | | | |Testing performed at [facility], [facility] [place] [address] | | | | | | | | | | + + +---- + + + + + | Specimen | + + | Blood | + + + + + + + | Performing | Address | City/State/Zipcode | Phone Number | | Organization | | | | + + + + + | [facility] | [address] | [place] [address] | [phone] | + + + + + POC Glucose (04/13/2019 3:30 AM PST) + + + + + + | Component | Value | Ref Range | Performed | Pathologist | | | | | At | Signature | + + + + + + | Glucose, | 147 (H)Comment: Testing | 65 - 99 mg/dL | [facility] | | | POC | performed at [facility];[address] | | LABORATORY | | | | [address];[place], [place] | | | | | | [address] | | | | + + + + + + + + | Specimen | + + | | + + + + + + + | Performing | Address | City/State/Zipcode | Phone Number | | Organization | | | | + + + + + | [facility] | [address] | [place] [address] | [phone] | + + + + + POC [...] | | | POC | performed at [facility];[address] | | LABORATORY | | | | [address];[place], [place] | | | | | | [address] | | | | + + + + + + + + | Specimen | + + | | + + + + + + + | Performing | Address | City/State/Zipcode | Phone Number | | Organization | | | | + + + + + | [facility] | [address] | [place] [address] | [phone] | + + + + + POC Glucose (04/12/2019 4:28 PM PST) + + + + + + | Component | Value | Ref Range | Performed | Pathologist | | | | | At | Signature | + + + + + + | Glucose, | 211 (H)Comment: Testing | 65 - 99 mg/dL | [facility] | | | POC | performed at [facility];[address] | | LABORATORY | | | | [address];[place], [place] | | | | | | [address] | | | | + + + + + + + + | Specimen | + + | | + + + + + + + | Performing | Address | City/State/Zipcode | Phone Number | | Organization | | | | + + + + + | [facility] | [address] | [place] [address] | [phone] | + + + + + POC Glucose (04/12/2019 11:53 AM PST) + + + + + + | Component | Value | Ref Range | Performed | Pathologist | | | | | At | Signature | + + + + + + | Glucose, | 162 (H)Comment: Testing | 65 - 99 mg/dL | [facility] | | | POC | performed at [facility];[address] | | LABORATORY | | | | [address];[place] | | | | | | [address] | | | | + + + + + + + + | Specimen | + + | | + + + + + + + | Performing | Address | City/State/Zipcode | Phone Number | | Organization | | | | + + + + + | [facility] | [address] | [place] [address] | [phone] | + + + + + POC [...] | | | POC | performed at [facility];[address] | | LABORATORY | | | | [address];[place], [place] | | | | | | [address] | | | | + + + + + + + + | Specimen | + + | | + + + + + + + | Performing | Address | City/State/Zipcode | Phone Number | | Organization | | | | + + + + + | [facility] | [address] | [place] [address] | [phone] | + + + + + Basic [...] 8.2 (L) | 8.5 - 10.5 | [facility] | | | | | mg/dL | LABORATORY | | + + + + + + | Estimated | >60Comment: GFR <60: | >60 | [facility] | | | GFR | CHRONIC KIDNEY [...] | | | | | | MDRD IDVT traceable | | | | | | equation.Testing | | | | | | performed at [facility], [address] | | | | | | [facility], | | | | | | [place] [address] | | | | + + + + + + + + | Specimen | + + | Blood | + + + + + + + | Performing | Address | City/State/Zipcode | Phone Number | | Organization | | | | + + + + + | [facility] | [address] | [place] [address] | [phone] | + + + + + CBC [...] | | | | | performed at [facility], [address] | | | | | | [address], | | | | | | [place] [address] | | | | | |MICRO | | | | | |NORMAL PLT MORPH | | | | | |Testing performed at [facility], [address] [facility], [place] [address] | | | | | | | | | | + + +---- + + + + + | Specimen | + + | Blood | + + + + + + + | Performing | Address | City/State/Zipcode | Phone Number | | Organization | | | | + + + + + | [facility] | [address] [facility] | [place] [address] | [phone] | + + + + + POC [...] | | | POC | performed at [facility];[address] | | LABORATORY | | | | [address];[place], [place] | | | | | | [address] | | | | + + + + + + + + | Specimen | + + | | + + + + + + + | Performing | Address | City/State/Zipcode | Phone Number | | Organization | | | | + + + + + | [facility] | [address] | [place] [address] | [phone] | + + + + + POC [...] | | | POC | performed at [facility];[address] | | LABORATORY | | | | [address];[place] | | | | | | [address] | | | | + + + + + + + + | Specimen | + + | | + + + + + + + | Performing | Address | City/State/Zipcode | Phone Number | | Organization | | | | + + + + + | [facility] | [address] | [place] [address] | [phone] | + + + + + POC Glucose (04/11/2019 3:22 PM PST) + + + + + + | Component | Value | Ref Range | Performed | Pathologist | | | | | At | Signature | + + + + + + | Glucose, | 168 (H)Comment: Testing | 65 - 99 mg/dL | [facility] | | | POC | performed at [facility];[address] | | LABORATORY | | | | [address];[place], [place] | | | | | | [address] | | | | + + + + + + + + | Specimen | + + | | + + + + + + + | Performing | Address | City/State/Zipcode | Phone Number | | Organization | | | | + + + + + | [facility] | [address] | [place] [address] | [phone] | + + + + + IR [...] | self-expanding stent SURGEON: Simba Cheng MD VERTICAL BORING MILL OPERATOR: None ANESTHESIA: | | | Moderate sedation [...] | | identified and brought to the Major Assembler. The patient was placed supine | | [...] sized to a 4 | | | Niuean sheath. A Omni flush catheter was then [...] inserted over the catheter and the 4 Niuean sheath was | | | removed. A 7 Niuean destination sheath was then inserted over the [...] using a | | | Glidewire and Evergreen catheter. A 0.009 wire was then passed [...] crossed using a | | |Glidewire and Evergreen catheter. A 0.009 wire was then passed [...] | | | POC | performed at [facility];[address] | | LABORAT[address] | | | | [address];[place], [place] | | | | | | [address] | | | | + + + + + + + + | Specimen | + + | | + + + + + + + | Performing | Address | City/State/Zipcode | Phone Number | | Organization | | | | + + + + + | [facility] | [address] | [place] [address] | [phone] | + + + + + B Type Natriuretic Peptide (04/11/2019 5:48 AM PST) + + + + + + | Component | Value | Ref Range | Performed | Pathologist | | | | | At | Signature | + + + + + + | BNP | 220.45 (H)Comment: | 0 - 100 pg/mL | [facility] | | | | Testing performed at | | LABORATORY | | | | [facility];[address] | | | | | | [place] [address] | | | | + + + + + + + + | Specimen | + + | Blood | + + + + + + + | Performing | Address | City/State/Zipcode | Phone Number | | Organization | | | | + + + + + | [facility] | [address] | [place] [address] | [phone] | + + + + + Basic [...] | | | | | performed at [facility], [address] | | | | | | [facility], | | | | | | [place] [address] | | | | + + + + + + + + | Specimen | + + | Blood | + + + + + + + | Performing | Address | City/State/Zipcode | Phone Number | | Organization | | | | + + + + + | [facility] | [address] | [place] [address] | [phone] | + + + + + CBC [...] | | | | | | at [facility], [address] | | | | | | [facility], | | | | | | [place] [address] | | | | | |Testing performed at [facility], [address] [place] [address] | | | | | | | | | | + + +---- + + + + + | Specimen | + + | Blood | + + + + + + + | Performing | Address | City/State/Zipcode | Phone Number | | Organization | | | | + + + + + | [facility] | [address] | [place] [address] | [phone] | + + + + + POC [...] | | | POC | performed at [facility];[address] | | LABORATORY | | | | [address];[place] | | | | | | [address] | | | | + + + + + + + + | Specimen | + + | | + + + + + + + | Performing | Address | City/State/Zipcode | Phone Number | | Organization | | | | + + + + + | [facility] | [address] | [place] [address] | [phone] | + + + + + POC Glucose (04/10/2019 2:33 PM PST) + + + + + + | Component | Value | Ref Range | Performed | Pathologist | | | | | At | Signature | + + + + + + | Glucose, | 176 (H)Comment: Testing | 65 - 99 mg/dL | [facility] | | | POC | performed at [facility];[address] | | LABORATORY | | | | [address];[place] | | | | | | [address] | | | | + + + + + + + + | Specimen | + + | | + + + + + + + | Performing | Address | City/State/Zipcode | Phone Number | | Organization | | | | + + + + + | [facility] | [address] | [place] [address] | [phone] | + + + + + [place] [...] | | | POC | performed at [facility];[address] | | LABORATORY | | | | [address];[place], [place] | | | | | | [address] | | | | + + + + + + + + | Specimen | + + | | + + + + + + + | Performing | Address | City/State/Zipcode | Phone Number | | Organization | | | | + + + + + | [facility] | [address] | [place] [address] | [phone] | + + + + + CBC [...] MPV | 8.3Comment: Testing | fl | [facility] | | | | performed at L, [address] | | LABORATORY | | | | [address], | | | | | | [place] [address] | | | | + + + + + + + + | Specimen | + + | Blood | + + + + + + + | Performing | Address | City/State/Zipcode | Phone Number | | Organization | | | | + + + + + | [facility] | [address] [facility] | [place] [address] | [phone] | + + + + + POC [...] | | | POC | performed at [facility];[address] | | LABORATORY | | | | [address];[place], [place] | | | | | | [address] | | | | + + + + + + + + | Specimen | + + | | + + + + + + + | Performing | Address | City/State/Zipcode | Phone Number | | Organization | | | | + + + + + | [facility] | [address] | [place] [address] | [phone] | + + + + + POC Glucose (04/09/2019 5:06 PM PST) + + + + + + | Component | Value | Ref Range | Performed | Pathologist | | | | | At | Signature | + + + + + + | Glucose, | 169 (H)Comment: Testing | 65 - 99 mg/dL | [facility] | | | POC | performed at [facility];[address] | | LABORATORY | | | | [address];[place] | | | | | | [address] | | | | + + + + + + + + | Specimen | + + | | + + + + + + + | Performing | Address | City/State/Zipcode | Phone Number | | Organization | | | | + + + + + | [facility] | [address] | [place] [address] | [phone] | + + + + + POC [...] | | | POC | performed at [facility];[address] | | LABORATORY | | | | [address];[place] | | | | | | [address] | | | | + + + + + + + + | Specimen | + + | | + + + + + + + | Performing | Address | City/State/Zipcode | Phone Number | | Organization | | | | + + + + + | [facility] | [address] | [place] [address] | [phone] | + + + + + XR [...] | 1+ (A)Comment: Testing | NONE | [facility] | | | Urine | performed at [facility], [address] | | LABORATORY | | | | [address], | | | | | | [place] [address] | | | | + + + + + + + + | Specimen | + + | | + + + + + + + | Performing | Address | City/State/Zipcode | Phone Number | | Organization | | | | + + + + + | [facility] | [address] | [place] [address] | [phone] | + + + + + Urinalysis, [...] - 1.030 | [facility] | | | [place], | | | LABORATORY | | | [...] | + + + + + | [facility] | [address] | [place] [address] | [phone] | + + + + + Sedimentation Rate (04/09/2019 6:16 AM PST) + + + + + + | Component | Value | Ref Range | Performed | Pathologist | | | | | At | Signature | + + + + + + | ESR | 91 (H)Comment: Testing | 0 - 20 mm/Hr | [facility] | | | | performed at [facility], [address] | | LABORATORY | | | | [address], | | | | | | [place] [address] | | | | + + + + + + + + | Specimen | + + | Blood | + + + + + + + | Performing | Address | City/State/Zipcode | Phone Number | | Organization | | | | + + + + + | [facility] | [address] | [place] [address] | [phone] | + + + + + CBC [...] [facility] | | | | performed at [facility], [address] | | LABORATORY | | | | [address], | | | | | | [place] [address] | | | | + + + + + + + + | Specimen | + + | Blood | + + + + + + + | Performing | Address | City/State/Zipcode | Phone Number | | Organization | | | | + + + + + | [facility] | [address] | [place] [address] | [phone] | + + + + + Comprehensive [...] | | | | | performed at [facility], [address] | | | | | | [address] [facility], | | | | | | [place] [address] | | | | + + + + + + + + | Specimen | + + | Blood | + + + + + + + | Performing | Address | City/State/Zipcode | Phone Number | | Organization | | | | + + + + + | [facility] | [address] | [place] [address] | [phone] | + + + + + POC [...] | | | POC | performed at [facility];[address] | | LABORATORY | | | | [address];[place], [place] | | | | | | [address] | | | | + + + + + + + + | Specimen | + + | | + + + + + + + | Performing | Address | City/State/Zipcode | Phone Number | | Organization | | | | + + + + + | [facility] | [address] | [place] [address] | [phone] | + + + + + Fecal Hemoglobin (04/08/2019 7:27 PM PST) + + + + + + | Component | Value | Ref Range | Performed | Pathologist | | | | | At | Signature | + + + + + + | FECAL | NEGATIVEComment: Testing | NEG | [facility] | | | OCCULT BLD | performed at [facility];[address] | | LABORATORY | | | | [address];[place] | | | | | | [address] | | | | + + + + + + + + | Specimen | + + | Stool - Stool | | specimen (specimen) | + + + + + + + | Performing | Address | City/State/Zipcode | Phone Number | | Organization | | | | + + + + + | [facility] | [address] | [place] [address] | [phone] | + + + + + POC Glucose (04/08/2019 6:34 PM PST) + + + + + + | Component | Value | Ref Range | Performed | Pathologist | | | | | At | Signature | + + + + + + | Glucose, | 179 (H)Comment: Testing | 65 - 99 mg/dL | [facility] | | | POC | performed at [facility];[address] | | LABORATORY | | | | [address];[place] | | | | | | [address] | | | | + + + + + + + + | Specimen | + + | | + + + + + + + | Performing | Address | City/State/Zipcode | Phone Number | | Organization | | | | + + + + + | [facility] | [address] | [place] [address] | [phone] | + + + + + XR [...] Testing | 65 - 99 mg/dL | [facility] | | | POC | performed at [facility];[address] | | LABORATORY | | | | [address];[place] | | | | | | [address] | | | | + + + + + + + + | Specimen | + + | | + + + + + + + | Performing | Address | City/State/Zipcode | Phone Number | | Organization | | | | + + + + + | [facility] | [address] | [place] [address] | [phone] | + + + + + XR [...] | | | POC | performed at [facility];[address] | | LABORATORY | | | | [address];[place], [place] | | | | | | [address] | | | | + + + + + + + + | Specimen | + + | | + + + + + + + | Performing | Address | City/State/Zipcode | Phone Number | | Organization | | | | + + + + + | [facility] | [address] | [place] [address] | [phone] | + + + + + B [...] | | LABORATORY | | | | [facility];[address] | | | | | | [place] [address] | | | | + + + + + + + + | Specimen | + + | Blood | + + + + + + + | Performing | Address | City/State/Zipcode | Phone Number | | Organization | | | | + + + + + | [facility] | [address] | [place] [address] | [phone] | + + + + + CBC [...] [facility] | | | | performed at [facility], [address] | | LABORATORY | | | | [facility], | | | | | | [place] [address] | | | | + + + + + + + + | Specimen | + + | Blood | + + + + + + + | Performing | Address | City/State/Zipcode | Phone Number | | Organization | | | | + + + + + | [facility] | [address] | [place] [address] | [phone] | + + + + + Comprehensive [...] | | | | | | MDRD [facility] traceable | | | | | | equation.Testing | | | | | | performed at [facility], [address] | | | | | | [facility], | | | | | | [place] [address] | | | | + + + + + + + + | Specimen | + + | Blood | + + + + + + + | Performing | Address | City/State/Zipcode | Phone Number | | Organization | | | | + + + + + | [facility] | [address] | [place] [address] | [phone] | + + + + + POC [...] | | | POC | performed at [facility];[address] | | LABORATORY | | | | [address];[place], [place] | | | | | | [address] | | | | + + + + + + + + | Specimen | + + | | + + + + + + + | Performing | Address | City/State/Zipcode | Phone Number | | Organization | | | | + + + + + | [facility] | [address] | [place] [address] | [phone] | + + + + + POC [...] | | | POC | performed at [facility];[address] | | LABORATORY | | | | [address];[place] | | | | | | [address] | | | | + + + + + + + + | Specimen | + + | | + + + + + + + | Performing | Address | City/State/Zipcode | Phone Number | | Organization | | | | + + + + + | [facility] | [address] [facility] | [place] [address] | [phone] | + + + + + POC [...] | | | POC | performed at [facility];[address] | | LABORATORY | | | | [address];[place], [place] | | | | | | [address] | | | | + + + + + + + + | Specimen | + + | | + + + + + + + | Performing | Address | City/State/Zipcode | Phone Number | | Organization | | | | + + + + + | [facility] | [address] | [place] [address] | [phone] | + + + + + XR [...] + + | Performing | Address | City/State/[facility] | Phone Number | | Organization [...] | | | POC | performed at [facility];[address] | | LABORATORY | | | | [address];[place], [place] | | | | | | [address] | | | | + + + + + + + + | Specimen | + + | | + + + + + + + | Performing | Address | City/State/Zipcode | Phone Number | | Organization | | | | + + + + + | [facility] | [address] | [place] [address] | [phone] | + + + + + Magnesium (04/07/2019 5:02 AM PST) + + + + + + | Component | Value | Ref Range | Performed | Pathologist | | | | | At | Signature | + + + + + + | Magnesium | 2.1Comment: Testing | 1.7 - 2.4 mg/dL | [facility] | | | | performed at [facility], [address] | | LABORATORY | | | | [address], | | | | | | [place] [address] | | | | + + + + + + + + | Specimen | + + | Blood | + + + + + + + | Performing | Address | City/State/Zipcode | Phone Number | | Organization | | | | + + + + + | [facility] | [address] | [place] [address] | [phone] | + + + + + CBC [...] [facility] | | | | performed at [facility];[address] | | LABORATORY | | | | [address];[place] | | | | | | [address] | | | | + + + + + + + + | Specimen | + + | Blood | + + + + + + + | Performing | Address | City/State/Zipcode | Phone Number | | Organization | | | | + + + + + | [facility] | [address] | [place] [address] | [phone] | + + + + + Comprehensive [...] [place], | | | | | | [place] [address] | | | | + + + + + + + + | Specimen | + + | Blood | + + + + + + + | Performing | Address | City/State/Zipcode | Phone Number | | Organization | | | | + + + + + | [facility] | [address] | [place] [address] | [phone] | + + + + + Iron, Total (04/07/2019 5:02 AM PST) + + + + + + | Component | Value | Ref Range | Performed | Pathologist | | | | | At | Signature | + + + + + + | Iron | 23 (L)Comment: Testing | 45 - 190 ug/dL | [facility] | | | | performed at [facility], [address] | | LABORATORY | | | | [address], | | | | | | [place] [address] | | | | + + + + + + + + | Specimen | + + | Blood | + + + + + + + | Performing | Address | City/State/Zipcode | Phone Number | | Organization | | | | + + + + + | [facility] | [address] | [place] [address] | [phone] | + + + + + POC Glucose (04/06/2019 8:54 PM PST) + + + + + + | Component | Value | Ref Range | Performed | Pathologist | | | | | At | Signature | + + + + + + | Glucose, | 216 (H)Comment: Testing | 65 - 99 mg/dL | [facility] | | | POC | performed at [facility];[address] | | LABORATORY | | | | [address];[place] | | | | | | [address] | | | | + + + + + + + + | Specimen | + + | | + + + + + + + | Performing | Address | City/State/Zipcode | Phone Number | | Organization | | | | + + + + + | [facility] | [address] | [place] [address] | [phone] | + + + + + POC Glucose (04/06/2019 4:29 PM PST) + + + + + + | Component | Value | Ref Range | Performed | Pathologist | | | | | At | Signature | + + + + + + | Glucose, | 173 (H)Comment: Testing | 65 - 99 mg/dL | [facility] | | | POC | performed at [facility];[address] | | LABORATORY | | | | [address];[place], [place] | | | | | | [address] | | | | + + + + + + + + | Specimen | + + | | + + + + + + + | Performing | Address | City/State/Zipcode | Phone Number | | Organization | | | | + + + + + | [facility] | [address] | [place] [address] | [phone] | + + + + + Culture, [...] LABORATORY | | | | Blvd;[place] [address] | | | | + + + + + + | RESULT | 1+NORMAL SKIN CELSA | | [facility] | | | | ISOLATED | | LABORATORY | | | | | | | | + + + + + + | RESULT | NO FURTHER WORKUP | | [facility] | | | | | | LABORATORY | | + + + + + + | RESULT | Testing performed at | | [facility] | | | | [facility], [address] | | LABORATORY | | | | [place] | | | | | | [address]Sufzvos: Testing | | | | | | performed at [facility], [address] | | | | [address] [place] | | | | | | [address] | | | | + + + + + + + + | Specimen | + + | Body Fluid - Entire | | heel (body | | structure) | + + + + + + + | Performing | Address | City/State/Zipcode | Phone Number | | Organization | | | | + + + + + | [facility] | [address] | [place] [address] | [phone] | + + + + + Culture, [...] | | LABORATORY | | | | Blvd;[place] [address] | | | | + + + [...] Comment: Testing | | | performed at [facility], | | | [address], | | | [place] [address] | +---+ + + + + + + | Performing | Address | City/State/Zipcode | Phone Number | | Organization | | | | + + + + + | [facility] | [address] | [place] [address] | [phone] | + + + + + Ferritin (04/06/2019 2:30 PM PST) + + + + + + | Component | Value | Ref Range | Performed | Pathologist | | | | | At | Signature | + + + + + + | Ferritin | 62Comment: Testing | 11 - 450 ng/mL | [facility] | | | | performed at [facility], [address] | | LABORATORY | | | | [address], | | | | | | [place] [address] | | | | + + + + + + + + | Specimen | + + | Blood | + + + + + + + | Performing | Address | City/State/Zipcode | Phone Number | | Organization | | | | + + + + + | [facility] | [address] | [place] [address] | [phone] | + + + + + Vitamin [...] | 12.3Comment: Testing | >5.4 ng/mL | [facility] | | | | performed at [facility], [address] | | LABORATORY | | | | [address], | | | | | | [place] [address] | | | | + + + + + + + + | Specimen | + + | Blood | + + + + + + + | Performing | Address | City/State/Zipcode | Phone Number | | Organization | | | | + + + + + | [facility] | [address] | [place] [address] | [phone] | + + + + + Troponin I (04/06/2019 2:30 PM PST) + + + + + + | Component | Value | Ref Range | Performed | Pathologist | | | | | At | Signature | + + + + + + | Troponin I | 0.161 (H)Comment: 0.04 | 0.00 - 0.04 | [facility] | | | | ng/mL or less [...] at | | | | | | [facility];[address] | | | | | | [address];[place] [address] | | | | + + + + + + + + | Specimen | + + | Blood | + + + + + + + | Performing | Address | City/State/Zipcode | Phone Number | | Organization | | | | + + + + + | [facility] | [address] | [place] [address] | [phone] | + + + + + POC [...] | | | POC | performed at [facility];[address] | | LABORATORY | | | | [address];[place] | | | | | | [address] | | | | + + + + + + + + | Specimen | + + | | + + + + + + + | Performing | Address | City/State/Zipcode | Phone Number | | Organization | | | | + + + + + | [facility] | [address] | [place] [address] | [phone] | + + + + + VAS [...] Testing | 65 - 99 mg/dL | [facility] | | | POC | performed at [facility];[address] | | LABORATORY | | | | [address];[place] | | | | | | [address] | | | | + + + + + + + + | Specimen | + + | | + + + + + + + | Performing | Address | City/State/Zipcode | Phone Number | | Organization | | | | + + + + + | [facility] | [address] | [place] [address] | [phone] | + + + + + Troponin I (04/06/2019 8:31 AM PST) + + + + + + | Component | Value | Ref Range | Performed | Pathologist | | | | | At | Signature | + + + + + + | Troponin I | 0.19 (H)Comment: 0.04 | 0.00 - 0.04 | [facility] | | | | ng/mL or less [...] at | | | | | | [facility];[address] [facility] | | | | | | [facility];[place] [address] | | | | + + + + + + + + | Specimen | + + | Blood | + + + + + + + | Performing | Address | City/State/Zipcode | Phone Number | | Organization | | | | + + + + + | [facility] | [address] | [place] [address] | [phone] | + + + + + XR [...] LABORATORY | | | | Blvd;[place] [address] | | | | + + + + + + | RESULT | NO GROWTH 6 DAYS | | [facility] | | | | | | LABORATORY | | + + + + + + | RESULT | Testing performed at | | [facility] | | | | [facility], [address] [facility] | | LABORATORY | | | | [place], [place], [place] | | | | | | [address]Yafeuwz: Testing | | | | | | performed at [facility], [address] | | | | | | [facility], [place], [place] | | | | | | [address] | | | | + + + + + + + + | Specimen | + + | Blood - Peripheral | | blood specimen | | (specimen) | + + + + + + + | Performing | Address | City/State/Zipcode | Phone Number | | Organization | | | | + + + + + | [facility] | [address] | [place] [address] | [phone] | + + + + + Culture, [...] LABORATORY | | | | Blvd;[place] [address] | | | | + + + + + + | RESULT | NO GROWTH 6 DAYS | | [facility] | | | | | | LABORATORY | | + + + + + + | RESULT | Testing performed at | | [facility] | | | | [facility], [address] | | LABORATORY | | | | [place], [place] | | | | | | [address]Sdtibir: Testing | | | | | | performed at [facility], [address] | | | | | [address] [place], [place] | | | | | | [address] | | | | + + + + + + + + | Specimen | + + | Blood - Peripheral | | blood specimen | | (specimen) | + + + + + + + | Performing | Address | City/State/Zipcode | Phone Number | | Organization | | | | + + + + + | [facility] | [address] | [place] [address] | [phone] | + + + + + B Type Natriuretic Peptide (04/06/2019 2:48 AM PST) + + + + + + | Component | Value | Ref Range | Performed | Pathologist | | | | | At | Signature | + + + + + + | BNP | 683.69 (H)Comment: | 0 - 100 pg/mL | [facility] | | | | Testing performed at | | LABORATORY | | | | [facility];[address] | | | | | | [address];[place] [address] | | | | + + + + + + + + | Specimen | + + | | + + + + + + + | Performing | Address | City/State/Zipcode | Phone Number | | Organization | | | | + + + + + | [facility] | [address] | [place] [address] | [phone] | + + + + + Lipid [...] | | | Calculated | performed at [facility], [address] | | LABORATORY | | | | [address], | | | | | | [place] [address] | | | | + + + + + + + + | Specimen | + + | Blood | + + + + + + + | Performing | Address | City/State/Zipcode | Phone Number | | Organization | | | | + + + + + | [facility] | [address] | [place] [address] | [phone] | + + + + + Hemoglobin A1C (04/06/2019 2:48 AM PST) + + + + + + | Component | Value | Ref Range | Performed | Pathologist | | | | | At | Signature | + + + + + + | Hemoglobin | 7.8 (H)Comment: HbA1c | 4.0 - 6.0 % | [facility] | | | A1c | method is [...] | 177 (H)Comment: | <154 mg/dL | [facility] | | | Average | Estimated Average | | LABORATORY | | | Glucose | Glucose calculated from | | | | | | hemoglobin A1c by use of | | | | | | the ADArecommended | | | | | | formula.Testing | | | | | | performed at [facility], [address] | | | | | | [address], | | | | | | [place] [address] | | | | + + + + + + + + | Specimen | + + | Blood | + + + + + + + | Performing | Address | City/State/Zipcode | Phone Number | | Organization | | | | + + + + + | [facility] | [address] | [place] [address] | [phone] | + + + + + Magnesium (04/06/2019 2:48 AM PST) + + + + + + | Component | Value | Ref Range | Performed | Pathologist | | | | | At | Signature | + + + + + + | Magnesium | 1.4 (L)Comment: Testing | 1.7 - 2.4 mg/dL | [facility] | | | | performed at [facility], [address] | | LABORATORY | | | | [address], | | | | | | [place] [address] | | | | + + + + + + + + | Specimen | + + | Blood | + + + + + + + | Performing | Address | City/State/Zipcode | Phone Number | | Organization | | | | + + + + + | [facility] | [address] | [place] [address] | [phone] | + + + + + Comprehensive [...] | | | | | performed at [facility], [address] | | | | | [address], | | | | | | [place] [address] | | | | + + + + + + + + | Specimen | + + | Blood | + + + + + + + | Performing | Address | City/State/Zipcode | Phone Number | | Organization | | | | + + + + + | [facility] | [address] | [place] [address] | [phone] | + + + + + CBC [...] | | | | | | at [facility];[address] | [address];[place] [address] | | | | | |NORMAL [address]T MORPH | | | | | |Testing performed at [facility];[address] [facility];[place] [address] | | | | | | | | | | + + + + + + + + | Specimen | + + | Blood | + + + + + + + | Performing | Address | City/State/Zipcode | Phone Number | | Organization | | | | + + + + + | [facility] | [address] | [place] [address] | [phone] | + + + + + Protime INR (04/06/2019 2:48 AM PST) + + + + + + | Component | Value | Ref Range | Performed | Pathologist | | | | | At | Signature | + + + + + + | INR | 1.2Comment: REFERENCE | | [facility] | | | | RANGE:0.9 - 1.2 [...] | | | | | performed at [facility];[address] | | | | | [address];[place] | | | | | | [address] | | | | + + + + + + + + | Specimen | + + | Blood | + + + + + + + | Performing | Address | City/State/Zipcode | Phone Number | | Organization | | | | + + + + + | [facility] | [address] | [place] [address] | [phone] | + + + + + PTT (04/06/2019 2:48 AM PST) + + + + + + | Component | Value | Ref Range | Performed | Pathologist | | | | | At | Signature | + + + + + + | PTT | 34 (H)Comment: Testing | 23 - 32 seconds | [facility] | | | | performed at [facility];[address] | | LABORATORY | | | | [address];[place] | | | | | | [address] | | | | + + + + + + + + | Specimen | + + | Blood | + + + + + + + | Performing | Address | City/State/Zipcode | Phone Number | | Organization | | | | + + + + + | [facility] | [address] | [place] [address] | [phone] | + + + + + Troponin I (04/06/2019 2:48 AM PST) + + + + + + | Component | Value | Ref Range | Performed | Pathologist | | | | | At | Signature | + + + + + + | Troponin I | 0.198 (H)Comment: 0.04 | 0.00 - 0.04 | [facility] | | | | ng/mL or less [...] at | | | | | | [facility];[address] | | | | | | Blvd;[place] [address] | | | | + + + + + + + + | Specimen | + + | Blood | + + + + + + + | Performing | Address | City/State/Zipcode | Phone Number | | Organization | | | | + + + + + | [facility] | [address] | [place] [address] | [phone] | + + + + + documented [...] | +---+---+ + +-------+ +---------+---+ + | heparin 5,000 units/mL 5,000 | Given | 04/18/19 | 501 mLs | | Surgical | | Units in sodium chloride (PF) | | 20 1:46 | | | Site | | 0.9% injection 500 mL Optesia | | PM PST | | | | | Mixture PRN, Starting Wed | | | | | | | 04/18/19 at 1346, Intra-op | | | | | | [...] | +---+---+ + +-------+ +---------+---+ + | heparin 5,000 units/mL | Given | 04/18/19 | 10,000 | | Surgical | | injection PRN, Starting Wed | | 20 2:24 | Units | | Site | | 04/18/19 at 1424, Intra-op | | PM PST | | | | + +-------+ +---------+---+ + + +---+ | | [...] | | SOLOSTAR) injection (pen) | | 9:55 | | | LUQ | | [...] + +---+---+ | | | +---+---+ + +---------+ +--------+---+ + | lactated ringers (LR) bolus | New Bag | 04/18/19 | 1,000 | | Surgical | | Administer over 2 Hours, | | 20 2:24 | mLs | | Site | | CONTINUOUS PRN, Starting Wed | | PM PST | | | | | 04/18/19 at 1424, Intra-op | | | | | | + +---------+ +--------+---+ + + +---+ | | | [...] | +---+---+ + +-------+ +--------+---+ + | thrombin (recombinant) | Given | 04/18/19 | 5,000 | | Surgical | | (RECOTHROM) solution PRN, | | 20 1:59 | Units | | Site | | Starting 04/18/19 at 1359, | | PM PST | | | | | Intra-op | | | | | | + +-------+ +--------+---+ + +---+---+ | | | [...]
--- OUTSIDE RECORDS SUMMARY | ~2019-08-08 | XMS | Encounter Summary ---
Demographics + + + | Address | [address] | | | [place] [address] | + + + | Home Phone | | + + + | Preferred Language | Unknown | + + + | Marital Status | | + + + | Sabianist Affiliation | [id number] | + + + | Race | Unknown | + + + | Ethnic Group | Unknown | + + + Author + + + | Author | [facility] | | | and [place] | + + + | Organization | [facility] | | | and [place] | + + + | Address | Unknown | + + + | Phone | Unavailable | + + + Support + + + + + | Name | Relationship | Address | Phone | + + + + + | Jessica Shepard | ECON | [address] | | | | | [place] | | | | | [address] | | + + + + + | Bel Solis | ECON | Unknown | | + + + + + Care Team Providers + +------+ + | Care Animal Control Officer Name | Role | Phone | + +------+ + | Jamar Manuel MD | PCP | | + +------+ + Encounter Details +--------+ + + + + | Date | Type | Department | Care Team | Description | +--------+ + + + + | 04/18/ | Anesthesia | [facility] | Khadra Cheng, | | | 2019 | [facility] | [address] | | | | | [address] | [place] [address] | | | | | [address] | [phone] | | | | | [place], [place] | | | | | | [address] | | | | | | [phone] | | | +--------+ + + + [...] +----+---+ + + | | 1 | [place] | | | | 3 | 43-degrees [...] | Sheila Cabrera, | | Lumen | Orthotics Prosthetics Assistant; [place]; Registered | | RN | | [...] | | | | lot number (specify) ([id number]); | | | | | 4 Fr, length (specify) (47cm | | | | | total [id number] out); | | | | | distraction, [...]
--- OUTSIDE RECORDS SUMMARY | ~2019-08-08 | XMS | Encounter Summary ---
Demographics + + + | Address | [address] | | | [place] [address] | + + + | Home Phone | | + + + | Preferred Language | Unknown | + + + | Marital Status | | + + + | Pentecostal Affiliation | 1076 | + + + | Race | Unknown | + + + | Ethnic Group | Unknown | + + + Author + + + | Author | [facility] | | | and [place] | + + + | Organization | [facility] | | | and [place] | + + + | Address | Unknown | + + + | Phone | Unavailable | + + + Support + + + + + | Name | Relationship | Address | Phone | + + + + + | Jessica Shepard | ECON | [address] | | | | | [place] | | | | | [address] | | + + + + + | Bel Solis | ECON | Unknown | | + + + + + Care Team Providers + +------+ + | Care Drywall Hanger Framer Name | Role | Phone | + +------+ + PCP | Unavailable | + +------+ + Encounter Details +--------+ + + + + | Date | Type | Department | Care Team | Description | +--------+ + + + + | 12/08/ | Hospital | [facility] | | | | 1999 | Encounter | MED [facility] XRAY [address] | | | | | | [place] | | | | | | [place] [address] | | | | | | [phone] | | | +--------+ + + + [...]
--- OUTSIDE RECORDS SUMMARY | ~2019-08-08 | XMS | Encounter Summary ---
Demographics + + + | Address | [address] | | | [place] [address] | + + + | Home Phone | | + + + | Preferred Language | Unknown | + + + | Marital Status | | + + + | Amish Affiliation | [id number] | + + + | Race | Unknown | + + + | Ethnic Group | Unknown | + + + Author + + + | Author | [facility] | | | and [place] | + + + | Organization | [facility] | | | and [place] | + + + | Address | Unknown | + + + | Phone | Unavailable | + + + Support + + + + + | Name | Relationship | Address | Phone | + + + + + | Jessica Shepard | ECON | [address] | | | | | [place] | | | | | [address] | | + + + + + | Bel Solis | ECON | Unknown | | + + + + + Care Team Providers + +------+ + | Care Accounts Receivable Clerk Name | Role | Phone | [...] + + | 11/19/ | Hospital | [facility] | Jurgen Casiano | [place], [place] | | 2018 - | Encounter | [facility] | MD Shayne [address] | encounter (Primary | | | | [address] [place] | [address] [place] | Dx); Fever, | | 11/25/ | | [place] [address] | [place] [address] | unspecified fever | | 2017 | | [phone] | [phone] | cause; Pneumonia due | | | | | | to infectious | | | | | Gray Perea MD | organism, | | | | | [address] | unspecified | | | | | [place], [place] | laterality, | | | | | [id number] | unspecified part of | | | | | | lung; Sepsis, due to | | | | | Mil Sandoval MD | unspecified | | | | | [address] | organism (HCC); | | | | | [place] | Insulin dependent | | | | | [id number] | diabetes mellitus | | | | | | ([facility]); Other chronic | | | | | | osteomyelitis of | | | | | | right foot ([facility]); | | | | | | Peripheral vascular | | | | | | disease ([facility]) | +--------+ + + + + Social [...] other anesthesia was used during the case. [facility] t lower extremity was then scrubbed, prepped and [...] -PT/OT ordered Code Status: Full Code Disposition: [facility] Discharge Condition: Stable, very deconditioned and weak at baseline Pleasant, no distress RRR, no m/r/g CTA bilaterally Soft, obese, NT Ext WWP, right foot ulcer with deep wound, slight purulent drainage Contact information for after-discharge care Placement Destination [facility] . Specialty: [facility] Facility Contact information: [address] [facility] [address] Discharge Medications New Medications Details acetaminophen [...] signed by: Justin Reyna MD, 11/25/2017 13:01 [facility] documented in this encounter Medications at Time [...] might be different f rom the original. [facility] PMG Hospitalist Progress Note Reaagn Shepard is a 72 y.o. male SUBJECTIVE: [...] pantoprazole Mechanical fall -PT/OT ordered Disposition : [facility] as soon as 11/25 Prophylaxis : heparin [...] as outlined above. Justin Reyna 11/24/2017 18:16 [facility] Sang Duff MD - 11/24/2017 1:59 PM PDTWe are evaluating the patient for further medical rehabilitatio n services. He does not qualify per CMS guidelines for full inpatient rehab . I recommend he be transferred to SNF for further skilled therapies once he is cleared acute ly. Justin Rodriguez MD - 11/23/2017 2:24 PM PDT [facility] PMG Hospitalist Progress Note Reagan Shepard [...] as outlined above. Justin Reyna 11/23/2017 14:24 [facility] orjuno, Simone VossARIM - 11/23/2017 1:58 PM PDT Foot & Ankle Surgery Progress Note Simone Aceves DPM Reagan Shepard Age/Gender 72 y.o. male Location [facility] Attending Mil Sandoval MD Hosp Day [...] Value Units Date/Time Culture, Wound, Smear, w/Anaerobe [[id number]] Collected: 11/21/17 1208 Order Status: Sent Lab Status: In process Updated: 11/21/17 1250 Specimen: Tissue from Toe, Fifth/Small, Right Narrative: The following orders were created for panel order Culture, Wound, Smear, w/Anaerobe. Procedure Abnormality Status --------- ------ Culture, Wound, Smear[[id number]] In process Culture, Anaerobic[[id number]] In process Please view results for these tests on the individual orders. Culture, Wound, Smear [[id number]] Collected: 11/21/171207 Order Status: Sent Lab Status: In process Updated: 11/21/17 1250 Specimen: Tissue from Toe, Fifth/Small, Right Culture, Anaerobic [[id number]] Collected: 11/21/171207 Order Status: Sent Lab Status: [...] Simone Aceves DPM 13:58; 11/23/2017 Irasema Dominguez, Credit Risk Analyst - 11/23/2017 9:43 AM PDT PHARMACY SERVICES: [...] strength, and directions X Pharmacy list names: [facility] X [employer] insurance reported information X Care [...] Prior to Admission Sig: Patient taking differently SPEECH LANGUAGE PATHOLOGY ASSISTANT as: Hydrocodone-acetaminophen 10-325 mg Take one tablet by mouth four times daily as needed fo r pain Patient taking 1 tablet three times daily as a scheduled dose Best possible SPEECH LANGUAGE PATHOLOGY ASSISTANT medication list after pharmacy review: PT REPORTED TAKING NOT TAKING Medication Sig Last Dose Dispense Doc. Provider aspirin 325 mg tablet Take 325 mg by mouth Daily. Taking Historical Provider, atorvaSTATin (LIPITOR) 40 mg tablet Take 40 mg by mouth nightly. Taking Historical Provid er, docusate-senna (SENOKOT-S) 50-8.6 mg per tablet Take 1 tablet by mouth Daily. Taking Hist orical Provider, DULoxetine (CYMBALTA) [address] capsule Take 30 mg by mouth 2 times daily. Taking Historic al Provider, gabapentin (NEURONTIN) 400 mg capsule Take 800 mg by mouth 3 times daily. Taking Historic al Provider, HYDROcodone-acetaminophen (NORCO) 10-325 mg per tablet Take 1 tablet by mouth 4 times simone y as needed for Pain. Taking Differently Historical ProviderMD insulin glargine (LANTUS) 100 units/mL injection (vial) Inject 30 Units under the skin 2 t imes daily. Taking Historical Provider, omeprazole (PRILOSEC) 20 mg capsule Take 20 mg by mouth every morning (before breakfast). Taking Historical Provider, sAXagliptin (ONGLYZA) 5 mg TABS tablet Take 5 mg by mouth Daily. Taking Historical Provid er, Medication review performed and electronically signed by Blanquita Bertrand, Boot Repairer 11/22/2017 8:38 Electronically signed by: Irasema Moyer, Credit Risk Analyst 11/23/2017 9:43 Justin Rodriguez MD - 11/22/2017 5:22 PM PDT [facility] PMG Hospitalist Progress Note Reagan Shepard [...] as outlined above. Justin Reyna 11/22/2017 17:40 [facility] anielle Guillermo, Glaze Sprayer - 11/22/2017 2:13 PM PDTFormatting of this [...] cerebral hemisphere; Diabetes mellitus (HCC); Stroke (cerebrum) ([facility]); an d TBI (traumatic brain injury) ([facility]). No risk factors for MDR organisms. HPI: [...] Value Units Date/Time Culture, Wound, Smear, w/Anaerobe [[id number]] Collected: 11/21/17 1208 Order Status: Sent Lab Status: In process Updated: 11/21/17 1250 Specimen: Tissue from Toe, Fifth/Small, Right Narrative: The following orders were created for panel order Culture, Wound, Smear, w/Anaerobe. Procedure Abnormality Status --------- ------ Culture, Wound, Smear[[id number]] Preliminary result Culture, Anaerobic[[id number]] In process Please view results for these tests on the individual orders. Culture, Wound, Smear [[id number]] Collected: 11/21/17 1208 Order Status: Completed Lab Status: Preliminary result Updated: 11/22/17 1021 Specimen: Tissue from Toe, Fifth/Small, Right Culture 2+ Lactose Fermenting Gram Negative Bacilli Comment: Identification and susceptibility to follow. Gram Stain Result 2+ White Blood Cells 1+ Epithelial cells 2+ Gram negative rods Culture, Anaerobic [[id number]] Collected: 11/21/17 1208 Order Status: Sent Lab Status: In process Updated: 11/21/17 1250 Specimen: Tissue from Toe, Fifth/Small, Right Respiratory Virus Panel, NAAT [[id number]] Collected: 11/20/17 1257 Order Status: Completed Lab [...] pneumoniae DNA Not Detected Narrative: Performed at: [address] [place] [address] [id number] Drafter Seismograph: Jurgen Costa MD, Phone: [phone] Culture, Wound, Smear [[id number]] (Susceptibility) Collected: 11/20/17 0825 Order Status: Completed [...] Sulfamethoxazole <=20 ug/mL Sensitive Culture, Wound, Smear [[id number]] (Susceptibility) Collected: 11/19/172030 Order Status: Completed Lab [...] no longer reported. Culture, Respiratory, Lower, Smear [[id number]] Order Status: Sent Lab Status: No result Specimen: Body Fluid from Sputum, Expectorated Culture, Wound, Smear [[id number]] Order Status: Canceled Lab Status: No result Specimen: Tissue from Leg, Left Culture, Blood [[id number]] (Normal) Collected: 11/19/17 1537 Order Status: Completed Lab Status: Preliminary result Updated: 11/20/17 0351 Specimen: Blood from Peripheral Blood Culture No growth: Monitored continually by instrument for 5 days Culture, Blood [[id number]] (Normal) Collected: 11/19/17 1506 Order Status: Completed Lab Status: Preliminary result Updated: 11/20/17 0321 Specimen: Blood from Peripheral Blood Culture No growth: Monitored continually by instrument for 5 days Culture, Urine [[id number]] Collected: 11/19/17 1416 Order Status: Completed Lab [...] Monitoring Protocol Electronically signed by: Danielle Guillermo, Glaze Sprayer 11/22/2017 14:13 Associated attestation - Luther Hampton PharmD - 11/22/2017 2:26 PM Maylin Gomez rmMariella 11/22/2017 14:26 Maria De Jesus Contreras RN [...] report to ELLIOT Romeo who continues care. Shanika bronson for this referral. Electronically signed by: Maria De Jesus Contreras RN 11/22/2017 10:21 Simone Roth DPM - 11/22/2017 8:28 AM PDT . Foot & Ankle Surgery Progress Note Simone Shepard Age/Gender 72 y.o. male Location [facility] Attending Mli Sandoval MD Hosp Day # 3 PCP [...] Value Units Date/Time Culture, Wound, Smear, w/Anaerobe [[id number]] Collected: 11/21/171207 Order Status: Sent Lab Status: In process Updated: 11/21/17 1250 Specimen: Tissue from Toe, Fifth/Small, Right Narrative: The following orders were created for panel order Culture, Wound, Smear, w/Anaerobe. Procedure Abnormality Status --------- ------ Culture, Wound, Smear[[id number]] In process Culture, Anaerobic[[id number]] In process Please view results for these tests on the individual orders. Culture, Wound, Smear [[id number]] Collected: 11/21/171207 Order Status: Sent Lab Status: In process Updated: 11/21/17 1250 Specimen: Tissue from Toe, Fifth/Small, Right Culture, Anaerobic [[id number]] Collected: 09/03/18 1208 Order Status: Sent Lab Status: In [...] a SNF Simone Aceves DPM 8:28; 11/22/2017 obischKhadra, Pharm D - 11/21/2017 1:35 PM PDT [...] cerebral hemisphere; Diabetes mellitus (HCC); Stroke (cerebrum) ([facility]); an d TBI (traumatic brain injury) ([facility]). . No risk factors for MDR organisms. [...] Value Units Date/Time Culture, Wound, Smear, w/Anaerobe [[id number]] Collected: 11/21/17 1208 Order Status: Sent Lab Status: In process Updated: 11/21/17 1250 Specimen: Tissue from Toe, Fifth/Small, Right Narrative: The following orders were created for panel order Culture, Wound, Smear, w/Anaerobe. Procedure Abnormality Status --------- ------ Culture, Wound, Smear[[id number]] In process Culture, Anaerobic[[id number]] In process Please view results for these tests on the individual orders. Culture, Wound, Smear [[id number]] Collected: 11/21/17 1208 Order Status: Sent Lab Status: In process Updated: 11/21/17 1250 Specimen: Tissue from Toe, Fifth/Small, Right Culture, Anaerobic [[id number]] Collected: 11/21/17 1208 Order Status: Sent Lab Status: In process Updated: 11/21/17 1250 Specimen: Tissue from Toe, Fifth/Small, Right Respiratory Virus Panel, NAAT [[id number]] Collected: 11/20/17 1257 Order Status: Sent Lab Status: In process Updated: 11/20/17 1302 Specimen: Tissue from Nasopharynx Culture, Wound, Smear [[id number]] Collected: 11/20/17 0825 Order Status: Completed Lab Status: Preliminary result Updated: 11/21/17 0739 Specimen: Tissue from Foot, Right Culture 1+ Gram Negative Jayesh, NOT Pseudomonas Comment: Identification and susceptibility to follow. 1+ Gram Positive Cocci Comment: Isolating for additional information. Gram Stain Result 1+ White Blood Cells No organisms seen Culture, Wound, Smear [[id number]] (Susceptibility) Collected: 11/19/17 203 Order Status: Completed Lab [...] <=20 ug/mL Sensitive Culture, Respiratory, Lower, Smear [[id number]] Order Status: Sent Lab Status: No result Specimen: Body Fluid from Sputum, Expectorated Culture, Wound, Smear [[id number]] Order Status: Canceled Lab Status: No result Specimen: Tissue from Leg, Left Culture, Blood [[id number]] (Normal) Collected: 11/19/17 1537 Order Status: Completed Lab Status: Preliminary result Updated: 11/20/17 0351 Specimen: Blood from Peripheral Blood Culture No growth: Monitored continually by instrument for 5 days Culture, Blood [[id number]] (Normal) Collected: 11/19/17 1506 Order Status: Completed Lab Status: Preliminary result Updated: 11/20/17 0321 Specimen: Blood from Peripheral Blood Culture No growth: Monitored continually by instrument for 5 days Culture, Urine [[id number]] Collected: 11/19/17 1416 Order Status: Completed Lab [...] Hoff MD - 11/21/2017 11:05 AM PDT [place] HOSPITALIST PROGRESS NOTE Patient: Reagan Shepard : 1945: Age: 72 y.o. MedRec: [id number] Admission date: 11/19/2017 Hospital day # : [...] Mil Sandoval MD 200 mg at 11/20/17 0806 DULoxetine (CYMBALTA) DR capsule 30 mg 30 mg Oral BID Mil Sandoval MD 30 mg at 11/21 0914 furosemide (LASIX) injection 20 mg 20 mg Intravenous Daily Nasim Jimenez MD 20 mg at 11/21/17 09 gabapentin (NEURONTIN) capsule 800 mg 800 mg Oral TID Mil Sandoval MD 800 mg at 06/05 0914 heparin 5,000 units/mL injection 5,000 Units 5,000 [...] Mil Sandoval MD 6 Units at 11/21/17 0911 pantoprazole (PROTONIX) DR tablet 40 mg 40 [...] 15 mg/kg (Adjusted) Intravenou s Q12H Danielle SmithfengcaridadDeneen 175 mL/hr at 11/21/17 0526 1,250 mg [...] E' Septal Velocity 4.79 cm/s MV Deceleration [place] 336.24 cm/s2 MV Deceleration Time 332.96 msec [...] Value Units Date/Time Respiratory Virus Panel, NAAT [[id number]] Collected: 11/20/17 1257 Order Status: Sent Lab Status: In process Updated: 11/20/17 1302 Specimen: Tissue from Nasopharynx Culture, Wound, Smear [[id number]] Collected: 11/20/17 0825 Order Status: Completed Lab Status: Preliminary result Updated: 11/21/17 0739 Specimen: Tissue from Foot, Right Culture 1+ Gram Negative Jayesh, NOT Pseudomonas Comment: Identification and susceptibility to follow. 1+ Gram Positive Cocci Comment: Isolating for additional information. Gram Stain Result 1+ White Blood Cells No organisms seen Culture, Wound, Smear [[id number]] (Susceptibility) Collected: 11/19/172030 Order Status: Completed Lab [...] + Sulfamethoxazole <=20 ug/mL Sensitive Culture, Blood [[id number]] (Normal) Collected: 11/19/17 1537 Order Status: Completed Lab Status: Preliminary result Updated: 11/20/17 0351 Specimen: Blood from Peripheral Blood Culture No growth: Monitored continually by instrument for 5 days Culture, Blood [[id number]] (Normal) Collected: 11/19/17 1506 Order Status: Completed Lab Status: Preliminary result Updated: 11/20/17 0321 Specimen: Blood from Peripheral Blood Culture No growth: Monitored continually by instrument for 5 days Culture, Urine [[id number]] Collected: 11/19/17 1416 Order Status: Completed Lab [...] Other Pharmacy Consult Nasim Jimenez 11/21/2017 11:05 [facility] Nasim Hoff MD - 11/20/2017 10:04 AM PDT [facility] [place] HOSPITALIST PROGRESS NOTE Patient: Reagan Shepard : 1945: Age: 72 y.o. MedRec: [id number] Admission date: 11/19/2017 Hospital day # : [...] Mil Sandoval MD 325 mg at 11/20/17 0807 atorvaSTATin (LIPITOR) tablet 40 mg 40 mg Oral Nightly Mil Sandoval MD 40 mg at 04/07 2113 dextrose 50% injection 12.5 g 12.5 g Intravenous PRN Mil Sandoval MD docusate sodium (COLACE) capsule 200 mg 200 mg Oral Daily Mil Sandoval MD 200 mg at 11/20/17 0806 DULoxetine (CYMBALTA) DR capsule 30 mg 30 mg Oral BID Mil Sandoval MD 30 mg at 11/20 0806 gabapentin (NEURONTIN) capsule 800 mg 800 mg [...] Units 15 Units Subc utaneous Nightly Mil Sanodval MD insulin lispro (humaLOG KWIKPEN) 100 units/mL [...] PH UA 5.0 5.0 - 8.0 Specific [place] 1.017 1.001 - 1.030 PROTEIN UA 30 [...] Component Value Units Date/Time Culture, Wound, Smear [[id number]] Collected: 11/20/17824 Order Status: Sent Lab Status: In process Updated: 11/20/17828 Specimen: Tissue from Foot, Right Culture, Wound, Smear [[id number]] Collected: 11/19/172030 Order Status: Completed Lab Status: Preliminary result Updated: 11/20/17899 Specimen: Tissue from Leg, Lower, Right Culture 2+ Gram Negative Jayesh, NOT Pseudomonas Comment: Identification and susceptibility to follow. 1+ Gram Positive Cocci Comment: Isolating for additional information. Gram Stain Result No white blood cells (PMNs) seen 1+ Gram negative rods Culture, Blood [[id number]] (Normal) Collected: 11/19/17 1537 Order Status: Completed Lab Status: Preliminary result Updated: 11/20/17 0351 Specimen: Blood from Peripheral Blood Culture No growth: Monitored continually by instrument for 5 days Culture, Blood [[id number]] (Normal) Collected: 11/19/17 1506 Order Status: Completed Lab Status: Preliminary result Updated: 11/20/17 0321 Specimen: Blood from Peripheral Blood Culture No growth: Monitored continually by instrument for 5 days Culture, Urine [[id number]] (Normal) Collected: 11/19/17 1416 Order Status: Completed [...] Other Pharmacy Consult Nasim Jimenez 11/20/2017 10:05 [facility] Khadra Mac Phar mD - 11/20/2017 [...] (HCC); an d TBI (traumatic brain injury) ([facility]). . No risk factors for MDR organisms. [...] Component Value Units Date/Time Culture, Wound, Smear [[id number]] Collected: 11/20/17 0825 Order Status: Sent Lab Status: In process Updated: 11/20/17828 Specimen: Tissue from Foot, Right Culture, Wound, Smear [[id number]] Collected: 11/19/172030 Order Status: Completed Lab Status: Preliminary result Updated: 11/20/17 09 Specimen: Tissue from Leg, Lower, Right Culture 2+ Gram Negative Jayesh, NOT Pseudomonas Comment: Identification and susceptibility to follow. 1+ Gram Positive Cocci Comment: Isolating for additional information. Gram Stain Result No white blood cells (PMNs) seen 1+ Gram negative rods Culture, Respiratory, Lower, Smear [[id number]] Order Status: Sent Lab Status: No result Specimen: Body Fluid from Sputum, Expectorated Culture, Wound, Smear [[id number]] Order Status: Canceled Lab Status: No result Specimen: Tissue from Leg, Left Culture, Blood [[id number]] (Normal) Collected: 11/19/17 1537 Order Status: Completed Lab Status: Preliminary result Updated: 11/20/17 0351 Specimen: Blood from Peripheral Blood Culture No growth: Monitored continually by instrument for 5 days Culture, Blood [[id number]] (Normal) Collected: 11/19/17 1506 Order Status: Completed Lab Status: Preliminary result Updated: 11/20/17 0321 Specimen: Blood from Peripheral Blood Culture No growth: Monitored continually by instrument for 5 days Culture, Urine [[id number]] (Normal) Collected: 11/19/17 1416 Order Status: Completed [...] - No accute osseous findings Date 11/19 11/20 11/21 Time of Vanco [...] cerebral hemisphere; Diabetes mellitus (HCC); Stroke (cerebrum) ([facility]); an d TBI (traumatic brain injury) ([facility]). . No risk factors for MDR organisms. [...] Value Units Date/Time Culture, Respiratory, Lower, Smear [[id number]] Order Status: Sent Lab Status: No result Specimen: Body Fluid from Sputum, Expectorated Culture, Wound, Smear [[id number]] Order Status: Sent Lab Status: No result Specimen: Tissue from Leg, Left Culture, Blood [[id number]] Collected: 11/19/17 1537 Order Status: Sent Lab Status: In process Updated: 11/19/17 1543 Specimen: Blood from Peripheral Blood Culture, Blood [[id number]] Collected: 11/19/17 1506 Order Status: Sent Lab Status: In process Updated: 11/19/17 1511 Specimen: Blood from Peripheral Blood Culture, Urine [[id number]] Collected: 11/19/17 1416 Order Status: Sent Lab [...] data in the 24 hours ending 11/19/17 1859 Temp: [38.1 C (100.6 F)-38.4 C (101.1 [...] the | | | | PDT | (HCC) | results section. | + +--------+ [...] + | CULTURE, WOUND, | Routin | 11/19/2017 | | Results [...] | | n - | | | 11/19/ | | | 2018 | | | 1:22 | | | [...] | | | FICATI | | | ON?09/ | | | / | | | 8 | | | 13:19? | | | HUESTI | | | ES, | | | REAGAN | | | K?MRN: | | | | | | [id number] | | | [id number] | | | his | | | [...] | | | ent/06 | | | [id number] | | | -9b07- | | | [...] | | | St. | | | [place] | | | y H. | | [...] | | | St. | | | [place] | | | y | | | [...] | | | ? | | | 2018 | | | Collec | | | [...] + | [facility] | [address] | [place] | [phone] | | [facility] | | [address] | | | - LABORATORY | | [...] [address] | [place] | [phone] | | [facility] | | [address] | | | - LABORATORY | | [...] [address] | [place] | [phone] | | [facility] | | [address] | | | - LABORATORY | | [...] 15 | 7 - 18 mg/dL | [facility] | | | | | | [facility] | | | | | | MEDICAL | | | | | | CENTER - | | | | | | LABORATORY | | + + + + + + | Creatinine | 0.91 | 0.60 - 1.30 | [facility] | | | | | mg/dL | [facility] | | | | | | MEDICAL | | | | | | CENTER - | | | | | | LABORATORY | | + + + + + + | eGFR if not | >60Comment: GLOMERULAR | >=60 | [facility] | | | | FILTRATION | mL/min/1.73m2 | [facility] | | | SAMOAN | RATE,ESTIMATED | | MEDICAL | | | | mL/min/1.29j6Cmfr than | | CENTER - | | [...] + | [facility] | [address] | [place] | [phone] | | [facility] | | [address] | | | - LABORATORY | | [...] (H) | 4.0 - 11.0 K/uL | [facility] | | | | | [...] + | [facility] | [address] | [place], [place] | [phone] | | [facility] | | [address] | | | - LABORATORY | | [...] + | Performing | Address | City/State/[facility] Cent[facility]ode | Phone Number | | Organization | | | | + + + + + | [facility] | [address] | [place] | [phone] | | [facility] | | [address] | | | - LABORATORY | | [...] [address] | [place] | [phone] | | [facility] | | [address] | | | - LABORATORY | | [...] [address] | [place] | [phone] | | [facility] | | [address] | | | - LABORATORY | | [...] [address] | [place] | [phone] | | [facility] | | [address] | | | - LABORATORY | | [...] | 0.91 | 0.60 - 1.30 | [facility] | | | | | mg/dL | [facility] | | | | | | MEDICAL | | | | | | CENTER - | | | | | | LABORATORY | | + + + + + + | eGFR if not | >60Comment: GLOMERULAR | >=60 | [facility] | | | | FILTRATION | mL/min/1.73m2 | [facility] | | | [place] | RATE,ESTIMATED | | MEDICAL | | | | mL/min/1.89v8Lfii than | | CENTER - | | [...] + | [facility] | [address] | [place] | [phone] | | [facility] | | [address] | | | - LABORATORY | | [...] + | [facility] | [address] | [place] | [phone] | | [facility] | | [address] | | | - LABORATORY | | [...] [address] | [place] | [phone] | | [facility] | | [address] | | | - LABORATORY | | [...] [address] | [place] | [phone] | | [facility] | | [address] | | | - LABORATORY | | [...] [address] | [place] | [phone] | | [facility] | | [address] | | | - LABORATORY | | [...] ST. | [address] | [place] | [phone] | | [facility] | | [address] | | | - LABORATORY | | [...] [address] | [place] | [phone] | | [facility] | | [address] | | | - LABORATORY | | [...] | | | | mmol/L | [facility] | | | | [...] 14 | 7 - 18 mg/dL | [facility] | | | | | | [facility] | | | | | | MEDICAL | | | | | | CENTER - | | | | | | LABORATORY | | + + + + + + | Creatinine | 0.87 | 0.60 - 1.30 | [facility] | | | | | mg/dL | [facility] | | | | | | MEDICAL | | | | | | CENTER - | | | | | | LABORATORY | | + + + + + + | eGFR if not | >60Comment: GLOMERULAR | >=60 | [facility] | | | | FILTRATION | mL/min/1.73m2 | [facility] | | | [place] | RATE,ESTIMATED | | MEDICAL | | | | mL/min/1.82a2Ehcu than | | CENTER - | | [...] + | [facility] | [address] | [place] | [phone] | | [facility] | | [address] | | | - LABORATORY | | [...] | | Monocytes | | K/uL | [facility] | [...] + + + + + | [facility]. | [address] | [place] | [phone] | | [facility] | | [address] | | | - LABORATORY | | [...] [address] | [place] | [phone] | | [facility] | | [address] | | | - LABORATORY | | [...] + | [facility] | [address] | [place] | [phone] | | [facility] | | [address] | | | - LABORATORY | | [...] + | [facility] | [address] | [place] | [phone] | | [facility] | | [address] | | | - LABORATORY | | [...] [address] | [place] | [phone] | | [facility] | | [address] | | | - LABORATORY | | [...] Rico Santiago MD | | Electronically signed: 11/22/2017 10:16 [...] [address] | [place] | [phone] | | [facility] | | [address] | | | - LABORATORY | | | | + + + + + Magnesium (11/22/2017 4:47 AM PDT) + +-------+ + + + | Component | Value | Ref Range | Performed | Pathologist | | | | | At | Signature | + +-------+ + + + | Magnesium | 1.9 | 1.8 - 2.5 mg/dL | KIRIT [...] [address] | [place] | [phone] | | [facility] | | [address] | | | - LABORATORY | | [...] + | [facility] | [address] | [place] | [phone] | | [facility] | | [address] | | | - LABORATORY | | [...] 14 | 7 - 18 mg/dL | [facility] | | | | | [...] mL/min/1.73m2 | [facility] | | | [place] | RATE,ESTIMATED | | MEDICAL | | | | mL/min/1.63y5Mfsq than | | CENTER - | | [...] [address] | [place] | [phone] | | [facility] | | [address] | | | - LABORATORY | | [...] [address] | [place] | [phone] | | [facility] | | [address] | | | - LABORATORY | | [...] + | [facility] | [address] | [place] | [phone] | | [facility] | | [address] | | | - LABORATORY | | [...] [address] | [place] | [phone] | | [facility] | | [address] | | | - LABORATORY | | | | + + + + + Culture, Anaerobic (11/21/2017 12:08 PM PDT) + + + + + + | Component | Value | Ref Range | Performed | Pathologist | | | | | At | Signature | + + + + + + | Culture | No anaerobes isolated. | | K[facility] | | | | | [...] [address] | [place] | [phone] | | [facility] | | [address] | | | - LABORATORY | | [...] | | | | aerogenesComment: | | [facility] | | | | Consider [...] | | Result | | | [facility] | | | | | | MEDICAL | | | | | | CENTER - | | | | | | LABORATORY | | + + + + + + | Gram Stain | 1+ Epithelial cells | | [facility] | | | Result | | | [facility] | | | | | | MEDICAL | | | | | | CENTER - | | | | | | LABORATORY | | + + + + + + | Gram Stain | 2+ Gram negative rods | | [facility] | | | Result | | | [facility] | | [...] + + + + + | [facility]. | [address] | [place] | [phone] | | [facility] | | [address] | | | - LABORATORY | | [...] + | [facility] | [address] | [place] | [phone] | | [facility] | | [address] | | | - LABORATORY | | [...] + + + + + | K[facility] PALMER. | [address] | [place] | [phone] | | [facility] | | [address] | | | - LABORATORY | | [...] + | No immature cells seen | [facility] | | | [facility] | | | - LABORATORY | + + + + + + + + | Performing | Address | City/State/Zipcode | Phone Number | | Organization | | | | + + + + + | [facility] | [address] | [place] | [phone] | | [facility] | | [address] | | | - LABORATORY | | | | + + + + + B Type Natriuretic Peptide (11/21/2017 4:08 AM PDT) + +-------+ + + + | Component | Value | Ref Range | Performed | Pathologist | | | | | At | Signature | + +-------+ + + + | BNP | 57 | <100 pg/mL | [facility] | | | | | [...] [address] | [place] | [phone] | | [facility] | | [address] | | | - LABORATORY | | | | + + + + + Sedimentation Rate (11/21/2017 4:08 AM PDT) + +--------+ + + + | Component | Value | Ref Range | Performed | Pathologist | | | | | At | Signature | + +--------+ + + + | Erythrocyte | 67 (H) | <20 mm/hr | [facility] | | | | | | [facility] | | | Sedimentati | | | MEDICAL | | | on Rate | | | CENTER - | | [...] [address] | [place] | [phone] | | [facility] | | [address] | | | - LABORATORY | | | | + + + + + C-Reactive Protein (11/21/2017 4:08 AM PDT) + + + + + + | Component | Value | Ref Range | Performed | Pathologist | | | | | At | Signature | + + + + + + | CRP | 165.00 (H) | <8.00 mg/L | [facility] | [...] | [address] | [place] | [phone] | | [facility] | | [address] | | | - LABORATORY | | | | + + + + + Magnesium (11/21/2017 4:08 AM PDT) + +---------+ + + + | Component | Value | Ref Range | Performed | Pathologist | | | | | At | Signature | + +---------+ + + + | Magnesium | 1.7 (L) | 1.8 - 2.5 mg/dL | [facility] | | | | | [...] + | [facility] | [address] | [place] | [phone] | | [facility] | | [address] | | | - LABORATORY | | [...] 0.20 (H) | 0.00 - 0.10 | [facility] | | | Basophils | | K/uL | [facility] | | | | | | [...] [address] | [place] | [phone] | | [facility] | | [address] | | | - LABORATORY | | [...] 14 | 7 - 18 mg/dL | [facility] | | | | | | [facility] | | | | | | MEDICAL | | | | | | CENTER - | | | | | | LABORATORY | | + + + + + + | Creatinine | 1.02 | 0.60 - 1.30 | [facility] | | | | | mg/dL | [facility] | | | | | | MEDICAL | | | | | | CENTER - | | | | | | LABORATORY | | + + + + + + | eGFR if not | >60Comment: GLOMERULAR | >=60 | [facility] | | | | FILTRATION | mL/min/1.73m2 | [facility] | | | [place] | RATE,ESTIMATED | | MEDICAL | | | | mL/min/1.68n3Xjxu than | | CENTER - | | [...] + | [facility] | [address] | [place] | [phone] | | [facility] | | [address] | | | - LABORATORY | | [...] Vancomycin | 13.6 | <20.0 ug/mL | [facility] | | | Trough | | | [facility] | | [...] [address] | [place] | [phone] | | [facility] | | [address] | | | - LABORATORY | | [...] ST. | [address] | [place] | [phone] | | [facility] | | [address] | | | - LABORATORY | | | | + + + + + Surgical Pathology Exam (11/21/2017 12:00 AM PDT) + + | Specimen | + + | | + + + + + | Narrative | Performed At | + + + | SPECIMEN(S): A RIGHT 5TH MEATATRSAL SPECIMEN SOURCE: A. RIGHT | [facility] | | 5TH MEATATRSAL CLINICAL HISTORY: 5th metatarsal diabetic | [facility] | | infection. FINAL PATHOLOGIC DIAGNOSIS: Right 5th metatarsal: - | | | Bone with focal serous fat necrosis with associated acute and | | | chronic inflammation suggestive of osteomyelitis. JVR:[facility]:C2NR | | | MICROSCOPIC EXAMINATION: Histologic [...] decalcified in decal | | | STAT).. am:AMB:[facility] PERFORMING LABORATORY: The technical | | | component was performed by [facility], [address] [place] [address] | | | [place] [address] (Dispenser Operator: Khadra Gill MD; CLIA# | | | [id number]). Professional interpretation was performed by [facility] | | | [facility], [address] | | | [place] [address] (Dispenser Operator: Ambrosio | | | [place]). Diagnostician: [...] [address] | [place] | [phone] | | [facility] | | [address] | | | - LABORATORY | | [...] | | | | | | n [place] | | | | | + +---------+ [...] ST. | [address] | [place] | [phone] | | [facility] | | [address] | | | - LABORATORY | | [...] + | Performing | Address | City/State/Unm Cancer Centercode | Phone Number | | Organization [...] + | Performed at: 01 - [place] [address], | REFERENCE LAB | | [place], [place] [id number] Drafter Seismograph: Jurgen Costa MD, Phone: | NIKKI - BKElba | | [phone] | | + + + + + + + + | Performing | Address | City/State/Zipcode | Phone Number | | Organization | | | | + + + + + | REFERENCE LAB | [address] | [place], [place] | [phone] | | [facility] | [address] | [address] | | + + + + + [...] + | [facility] | [address] | [place] | [phone] | | [facility] | | [address] | | | - LABORATORY | | | | + + + + + Sedimentation Rate (11/20/2017 11:35 AM PDT) + +--------+ + + + | Component | Value | Ref Range | Performed | Pathologist | | | | | At | Signature | + +--------+ + + + | Erythrocyte | 59 (H) | <20 mm/hr | [facility] | | | | | | [facility] | | | Sedimentati | | | MEDICAL | | | on Rate | | | CENTER - | | | | | | LABORATORY | | + +--------+ + + + + + | Specimen | + + | Blood | + + + + + + + | Performing | Address | City/State/Zipcode | Phone Number | | Organization | | | | + + + + + | [facility] | [address] | [place] | [phone] | | [facility] | | [address] | | | - LABORATORY | | | | + + + + + C-Reactive Protein (11/20/2017 11:35 AM PDT) + + + + + + | Component | Value | Ref Range | Performed | Pathologist | | | | | At | Signature | + + + + + + | CRP | 185.35 (H) | <8.00 mg/L | [facility] | [...] + | [facility] | [address] | [place] | [phone] | | [facility] | | [address] | | | - LABORATORY | | [...] | | Result | | | [facility] | | | | | | MEDICAL | | | | | | CENTER - | | | | | | LABORATORY | | + + + + + + | Gram Stain | No organisms seen | | [facility] | | | Result | | | [facility] | | [...] + | [facility] | [address] | [place] | [phone] | | [facility] | | [address] | | | - LABORATORY | | [...] [address] | [place] | [phone] | | [facility] | | [address] | | | - LABORATORY | | [...] [address] | [place] | [phone] | | [facility] | | [address] | | | - LABORATORY | | | | + + + + + B Type Natriuretic Peptide (11/20/2017 4:45 AM PDT) + +---------+ + + + | Component | Value | Ref Range | Performed | Pathologist | | | | | At | Signature | + +---------+ + + + | BNP | 101 (H) | <100 pg/mL | [facility] | | | | | [...] + + | [facility] | [address] | [place] | [phone] | | [facility] | | [address] | | | - LABORATORY | | | | + + + + + Magnesium (11/20/2017 4:45 AM PDT) + +-------+ + + + | Component | Value | Ref Range | Performed | Pathologist | | | | | At | Signature | + +-------+ + + + | Magnesium | 1.8 | 1.8 - 2.5 mg/dL | [facility] | | | | | [...] + | [facility] | [address] | [place], [place] | [phone] | | [facility] | | [address] | | | - LABORATORY | | [...] | | Eosinophils | | | [facility] | | [...] | | Eosinophils | | K/uL | [facility] | [...] [address] | [place] | [phone] | | [facility] | | [address] | | | - LABORATORY | | [...] 15 | 7 - 18 mg/dL | [facility] | | | | | | [facility] | | | | | | MEDICAL | | | | | | CENTER - | | | | | | LABORATORY | | + + + + + + | Creatinine | 0.91 | 0.60 - 1.30 | [facility] | | | | | mg/dL | [facility] | | | | | | MEDICAL | | | | | | CENTER - | | | | | | LABORATORY | | + + + + + + | eGFR if not | >60Comment: GLOMERULAR | >=60 | [facility] | | | | FILTRATION | mL/min/1.73m2 | [facility] | | | [place] | RATE,ESTIMATED | | MEDICAL | | | | mL/min/1.09d8Xcli than | | CENTER - | | [...] | | | | mg/dL | [facility] | | | | [...] + | [facility] | [address] | [place] | [phone] | | [facility] | | [address] | | | - LABORATORY | | [...] + + + + + | KIR[facility] PALMER. | [address] | [place] | [phone] | | [facility] | | [address] | | | - LABORATORY | | [...] [address] | [place] | [phone] | | [facility] | | [address] | | | - LABORATORY | | [...] | Result | (PMNs) seen | | [facility] | | | | | | MEDICAL | | | | | | CENTER - | | | | | | LABORATORY | | + + + + + + | Gram Stain | 1+ Gram negative rods | | [facility] | | | Result | | | [facility] | | [...] [address] | [place] | [phone] | | [facility] | | [address] | | | - LABORATORY | | [...] + | [facility] | [address] | [place] | [phone] | | [facility] | | [address] | | | - LABORATORY | | | | + + + + + POC Glucose (11/19/2017 7:09 PM PDT) + +---------+ + + + | Component | Value | Ref Range | Performed | Pathologist | | | | | At | Signature | + +---------+ + + + | Glucose, | 346 (H) | 70 - 109 mg/dL | [facility] | | | POC | | | [...] | [address] | [place] | [phone] | | [facility] | | [address] | | | - LABORATORY | | [...] [address] | [place] | [phone] | | [facility] | | [address] | | | - LABORATORY | | [...] + | [facility] | [address] | [place] | [phone] | | [facility] | | [address] | | | - LABORATORY | | | | + + + + + Culture, Blood (11/19/2017 3:06 PM PDT) + + + + + + | Component | Value | Ref Range | Performed | Pathologist | | | | | At | Signature | + + + + + + | Culture | No growth after 5 days | | [facility] | | | | incubation. | | [...] [address] | [place] | [phone] | | [facility] | | [address] | | | - LABORATORY | | [...] | 0.76 | 0.60 - 1.30 | [facility] | | | | | mg/dL | [facility] | | | | | | MEDICAL | | | | | | CENTER - | | | | | | LABORATORY | | + + + + + + | eGFR if not | >60Comment: GLOMERULAR | >=60 | [facility] | | | | FILTRATION | mL/min/1.73m2 | [facility] | | | [place] | RATE,ESTIMATED | | MEDICAL | | | | mL/min/1.98q1Yagg than | | CENTER - | | [...] | | | | | mg/dL | [facility] | | | | | [...] [address] | [place] | [phone] | | [facility] | | [address] | | | - LABORATORY | | [...] (H) | 4.0 - 11.0 K/uL | [facility] | | | | | [...] | | Eosinophils | | K/uL | [facility] | [...] [address] | [place] | [phone] | | [facility] | | [address] | | | - LABORATORY | | [...] fluid overload. Dictated and Signed by: Rico Santiago, | | | MD Electronically signed: 11/19/2017 4:17 PM | | + + + + + | Procedure Note | + + | Elle, Rad Results In - 11/19/2017 4:20 PM PDT [...] + | Performing | Address | City/State/Unm Cancer Centercode | Phone Number | | Organization [...] | REFERENCE | | | | of [place] Pathologists | | LAB [facility] | | | | standards require a | | - [facility] | | | | culture to beperformed | | | | | | on CSF specimens | | | | | | submitted for bacterial | | | | | | antigen testing.(CAP | | | | | | [id number]) Urine | | | | | | specimens will not be | | | | | | cultured. | | | | + + + + + + + + | Specimen | + + | Urine | + + + + + | Narrative | Performed At | + + + | Performed at: 01 - [address] [place] [address], | REFERENCE LAB | | [place], [place] [id number] Drafter Seismograph: Christ Deal MD, Phone: | NIKKI - NICOLÁS | | [phone] | | + + + + + + + + | Performing | Address | City/State/Zipcode | Phone Number | | Organization | | | | + + + + + | REFERENCE LAB | [address] | [place], [place] | [phone] | | [facility] | [facility] | [address] | | + + + + + [...] | | Positive FloraComment: | | [facility] | | | | Suggests contamination | [...] + | [facility] | [address] | [place] | [phone] | | [facility] | | [address] | | | - LABORATORY | | [...] - 1.030 | [facility] | | | [place], | | | [facility] | | [...] + + + | White Blood | 0-2 | 0 - 2 /HPF | [facility] | | | Cells, | | | [facility] | | | Urine | | | MEDICAL | | | | | | CENTER - | | | | | | LABORATORY | | + + + + + + | Red Blood | 0-2 | 0 - 2 /HPF | [facility] | | | Cells, | | | [facility] | | | Urine | | | MEDICAL | | | | | | CENTER - | | | | | | LABORATORY | | + + + + + + | Squamous | 0-2 | 0 - 2 /LPF | [facility] | | | Epithelial | | | [facility] | | | Cells, | | | MEDICAL | | | Urine | | | CENTER - | | | | | | LABORATORY | | + + + + + + | Bacteria, | Negative | Negative /HPF | [facility] | | | Urine | | | [facility] | | | | | | MEDICAL | | | | | | CENTER - | | | | | | LABORATORY | | + + + + + + | Mucus, | Present (A) | Negative /LPF | [facility] | | | Urine | | | [facility] | | | | | | MEDICAL | | | | | | CENTER - | | | | | | LABORATORY | | + + + + + + | Urine | Urine Culture Not | | [facility] | | | Comment | Indicated | | [facility] | | | [...] ST. 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 If | | | [...] | | | | last modification) on [facility] 11/24/17 | | | | | | [...] | | | | | | | 0838-9269 Use NIGHT DOSE for | | | | | | | doses scheduled: HS, 3AM, | | | | | | | Nighttime 5631-1890, | | | | | | + [...] | insulin lispro (humaLOG | | | KWIKPEN) 100 units/mL injection | | | (pen) [...] scheduled: AC, NPO, Daytime | | | 7136-3569 Use NIGHT DOSE for | | | doses scheduled: HS, 3AM, | | | Nighttime 1898-5819, | | + +---+ | | | [...] | | | | | | | 8172-0423 Use NIGHT DOSE for | | | | | | | doses scheduled: HS, 3AM, | | | | | | | Nighttime 6402-1240, | | | | | | + [...] | | | | | Subcutaneous, ONCE, [facility] 11/24/17 at | | | | | [...] | vancomycin 1,500 mg in sodium | | 11/23/19 | 1,500 mg | 176.7 [...] +---------+ + +--------+---+ +---------+ + +--------+---+ | | 11/22/19 | 1,500 mg | 176.7 | | | | 18 5:18 | | mL/hr | | | | PM PDT | | | | +---------+ + +--------+---+ +---+---+ | | | +---+---+ + +---------+ + +--------+---+ | vancomycin 1,750 mg in sodium | New | 11/20/19 | 1,750 mg | 258.8 [...]
--- OUTSIDE RECORDS SUMMARY | ~2019-08-08 | XMS | Encounter Summary ---
Demographics + + + | Address | [address] | | | [place] [address] | + + + | Home Phone | | + + + | Preferred Language | Unknown | + + + | Marital Status | | + + + | Hindu Affiliation | 1076 | + + + | Race | Unknown | + + + | Ethnic Group | Unknown | + + + Author + + + | Author | [facility] | | | and [place] | + + + | Organization | [facility] | | | and [place] | + + + | Address | Unknown | + + + | Phone | Unavailable | + + + Support + + + + + | Name | Relationship | Address | Phone | + + + + + | Jessica Shepard | ECON | [address] | | | | | [place] | | | | | [phone] | | + + + + + | Bel Solis | ECON | Unknown | | + + + + + Care Team Providers + +------+ + | Care Compound Specialist Name | Role | Phone | + +------+ + | Jamar Manuel MD | PCP | | + +------+ + Encounter Details +--------+---------+ + + + | Date | Type | Department | Care Team | Description | +--------+---------+ + + + | 04/10/ | Surgery | [facility] | Aleksander Montiel, | CYSTOSCOPY | | 2019 | | [facility] | MD Nash SMITH | | | | | OPERATING ROOM [address] [place], [place] | | | | | [facility] | [address] | | | | | [place], [place] | [phone] | | | | | [address] | | | | | | [phone] | | | +--------+---------+ + + + [...] other chronic comorbidities who pre sents to [facility] ER on 04/06 for shortness of breath admitted with 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 The patient was admitted to regular medical floor and started on optimal medical management . On-call qa internship (Dr. Ruelas) recommended continued medical management. Patient [...] inferior defect with partial improvement at rest accounts payable coordinator was i nformed by hospitalist colleague [...] their primary care provider within 1 w port lions after discharge, follow-up with ID in 2 weeks after discharge, follow-up with vascular s urgery as per their recommendations or otherwise within 2 weeks after discharge. The patien t will need to follow-up with his outpatient qa internship within 1 to 2 weeks after discharg [...] Results Results Reviewed. Discharge Information: Follow up: [facility] [address] [facility] [address] Bhanu Seaman PA-C [address] [place] [facility] [address] In 2 weeks Jamar Manuel MD [address] [place] [address] Schedule an appointment as soon as possible for a visit in 1 week Hero Gaston MD [address] [facility] [address] Schedule an appointment as soon as possible for a visit in 2 weeks Post hospital discharge follow-up Dr. New Ruelas [address] [facility] [address] [facility] [address] Schedule an appointment as soon as [...] mg per tablet aka: NORCO . Disposition: retirement Condition: Stable Code Status: Full Code Discharge [...] numbness Complications from anesthesia Date Last Reviewed: 08/20/201519990936-1004 [address] [place] [address]. All righ ts reserved. This information is [...] Wakefield PA-C - 04/21/2019 8:21 AM PST [facility] Service: Vascular Surgery Progress Note SUBJECTIVE Patient Summary: 74 y.o. man with complex medical issues and LE ischemic ulcers, he wa s recently admitted to the [facility] from 03/28/19 to 04/04/19 where he was treated/ diagnosed with systolic heart failure, type 2 KS/NSTEMI, SHAE, ARF. O2 desaturation brought him from SNF to [facility] and current admission today with CHF and [...] Holliday RN - 04/20/2019 4:40 PM PST [facility] Service: Wound Care Follow Up Note [...] Primary Wound Type: Diabetic Ulcer Side: Left Noel ation: lateral Location: foot Wound Subtype: ulceration, [...] M D - 04/20/2019 2:16 PM PST [facility] Service: Hospitalist Progress Note Pt: Reagan [...] hematuria. Recent history notable for admit to [facility] from 03/28/19 to 04/04/2019 for CHF exacerbation with eventual dischar ge to [facility]. He then re-presented to same hospital due [...] encounter as of 04/20/19-14:16 IMAGING: Reviewed in [facility], no new results. PROBLEM LIST Principal Problem: [...] Received 8 days of IV antibiotics at [facility] discharged home on with augmentin, now readmitted on 04/06 at [facility] and started on rocephin after sending [...] SQH Code status: Full Dispo: back to [facility] pending recovery from vascular bypass surgery (okay [...] as indicated. Thank You, Sunshine Love, PharmD, [facility] 04/20/19 1:52 PM Nandini Sánchez se, MD - 04/20/2019 8:56 AM PST [facility] Service: Infectious Diseases Progress Note Hospital [...] Component Value Units Date/Time Culture, Wound, Superficial [[id number]] (Abnormal) (Susceptibility) Collected: 04/06/191545 Order Status: Completed Lab Status: Final result Updated: 04/11/19727 Specimen: Body Fluid from Heel, Right Special Requests LT FOOT Special Requests Testing performed at [facility];[address] [place] [address] RESULT -- 1+ ENTEROCOCCUS FAECALIS Aminoglycosides (except [...] Sensitive SUSCEPTIBLE JESSICA Final Testing performed at [facility], [address] [place] [address] Culture, Wound, Superficial [[id number]] Collected: 04/06/191545 Order Status: Completed Lab Status: Final result Updated: 04/08/1937 Specimen: Body Fluid from Heel, Right Special Requests RIGHT FOOT Special Requests Testing performed at [facility];[address] [place] [address] RESULT -- 1+ NORMAL SKIN CELSA ISOLATED RESULT NO FURTHER WORKUP RESULT Testing performed at [facility], [address] [place] [address] Comment: Testing performed at [facility], [address] [place] [address] Microbiology Results (72 hrs) No results found [...] assisting with dosing and monitorization. Discussed with gearcase assembler regarding OPAT. Discussed with gearcase assembler regarding discharge planning. Dr. Dolan will take over ID service tomorrow. Please call if questions. Hero Richardson MD, MPH Infectious Diseases 04/20/19 Sheila Gage RN - 04/19/2019 7:20 PM PSTEnd of shift chart check complete. Sheila Cabrera RN Sunshine Chen, [facility] - 04/19/2019 3:23 PM PSTFormatting of [...] Shaver MD - 04/19/2019 2:46 PM PST [facility] Service: Hospitalist Progress Note Pt: Reagan [...] hematuria. Recent history notable for admit to [facility] from 03/28/19 to 04/04/2019 for CHF exacerbation with eventual dischar ge to [facility]. He then re-presented to same hospital due [...] Received 8 days of IV antibiotics at [facility] discharged home on with augmentin, now readmitted on 04/06 at [facility] and started on rocephin after sending [...] SQH Code status: Full Dispo: back to [facility] pending recovery from vascular bypass surgery, final ID recs , tentatively planning for ~04/21 Grover Charles MD 2:46 PM 04/19/2019 Portions of this chart may have been copied from previous notes for continuity of care purp ose Hero Sánchez MD - 04/19/2019 9:53 AM PSTFormatting of this note might be different from the ramiro ragsdale. [facility] Service: Infectious Diseases Progress Note Hospital [...] Component Value Units Date/Time Culture, Wound, Superficial [[id number]] (Abnormal) (Susceptibility) Collected: 04/06/19 1546 Order Status: Completed Lab Status: Final result Updated: 04/11/1928 Specimen: Body Fluid from Heel, Right Special Requests LT FOOT Special Requests Testing performed at [facility];[address] [place] [address];[place] [address] RESULT -- 1+ ENTEROCOCCUS FAECALIS Aminoglycosides (except [...] Sensitive SUSCEPTIBLE JESSICA Final Testing performed at [facility], [address] [place] [address] Culture, Wound, Superficial [[id number]] Collected: 04/06/19 1546 Order Status: Completed Lab Status: Final result Updated: 04/08/1937 Specimen: Body Fluid from Heel, Right Special Requests RIGHT FOOT Special Requests Testing performed at [facility];[address] [place] [address] RESULT -- 1+ NORMAL SKIN CELSA ISOLATED RESULT NO FURTHER WORKUP RESULT Testing performed at [facility], [address] [place] [address] Comment: Testing performed at [facility], [address] [place] [address] Culture, Blood [[id number]] Collected: 04/06/19 0338 Order Status: Completed Lab Status: Final result Updated: 04/12/1952 Specimen: Peripheral Blood Special Requests R WRIST Special Requests Testing performed at [facility];[address] [place] [address] RESULT NO GROWTH 6 DAYS RESULT Testing performed at [facility], [address] [place] [address] Comment: Testing performed at [facility], [address] [place] [address] Culture, Blood [[id number]] Collected: 04/06/19 0331 Order Status: Completed Lab Status: Final result Updated: 04/12/1952 Specimen: Peripheral Blood Special Requests L WRIST Special Requests Testing performed at [facility];[address] [place] [address] RESULT NO GROWTH 6 DAYS RESULT Testing performed at [facility], [address] [place] [address] Comment: Testing performed at [facility], [address] [place] [address] Microbiology Results (72 hrs) No results found [...] might be different from the o sheryl. [facility] Service: Vascular Surgery Progress Note SUBJECTIVE Patient Summary: 74 y.o. man with complex medical issues and LE ischemic ulcers, he wa s recently admitted to the [facility] from 03/28/19 to 04/04/19 where he was treated/ diagnosed with systolic heart failure, type 2 KS/NSTEMI, SHAE, ARF. O2 desaturation brought him from SNF to [facility] and current admission today with CHF and [...] Rachel Patino RN - 04/19/2019 5:46 AM [id number] left foot dressing change complete per order. [...] Grover Shaver MD - 4:52 PM PST [facility] Service: Hospitalist Progress Note Pt: Reagan Shepard AGE/SEX: 74 y.o. male ROOM: [facility] OR INTRA OP POOL/[facility]* : 1945 PCP: Jamar Manuel MD ADMIT DATE: 04/06/2019 TODAY'S DATE: 04/18/2019 Hospital Day/Hospital Course: LOS: 12 days Mr. Shepard is a 74-year-old gentleman with a history of bilateral nonhealing diabetic trisha t ulcers, and history of TBI, stroke, insulin dependent DM, who presents with CHF exacerbati on with hospital course complicated by gross hematuria. Recent history notable for admit to [facility] from 03/28/19 to 04/04/2019 for CHF exacerbation with eventual dischar ge to [facility]. He then re-presented to same hospital due [...] the last 72 hours. IMAGING: Reviewed in [facility], no new results. PROBLEM LIST Principal Problem: [...] Received 8 days of IV antibiotics at [facility] discharged home on with augmentin, now readmitted on 04/06 at [facility] and started on rocephin after sending [...] SQH Code status: Full Dispo: back to [facility] pending cardiac evaluation/optimization, vascular bypass donna wero, [...] as indicated. Thank You, Sunshine Love, PharmD, [facility] 04/18/19 2:45 PM Syed López PTA [...] might be different from t kevin original. [facility] Service: Infectious Diseases Progress Note Hospital [...] Component Value Units Date/Time Culture, Wound, Superficial [[id number]] (Abnormal) (Susceptibility) Collected: 04/06/19 1546 Order Status: Completed Lab Status: Final result Updated: 04/11/19 0728 Specimen: Body Fluid from Heel, Right Special Requests LT FOOT Special Requests Testing performed at [facility];[address] [place] [address];[place] [address] RESULT -- 1+ ENTEROCOCCUS FAECALIS Aminoglycosides (except [...] Sensitive SUSCEPTIBLE JESSICA Final Testing performed at [facility], [address] [place] [address] Culture, Wound, Superficial [[id number]] Collected: 04/06/19 1546 Order Status: Completed Lab Status: Final result Updated: 04/08/1937 Specimen: Body Fluid from Heel, Right Special Requests RIGHT FOOT Special Requests Testing performed at [facility];[address] [place] [address] RESULT -- 1+ NORMAL SKIN CELSA ISOLATED RESULT NO FURTHER WORKUP RESULT Testing performed at [facility], [address] [place] [address] Comment: Testing performed at [facility], [address] [place] [address] Culture, Blood [[id number]] Collected: 04/06/198 Order Status: Completed Lab Status: Final result Updated: 04/12/1952 Specimen: Peripheral Blood Special Requests R WRIST Special Requests Testing performed at [facility];[address] [place] [address] RESULT NO GROWTH 6 DAYS RESULT Testing performed at [facility], [address] [place] [address] Comment: Testing performed at [facility], [address] [place] [address] Culture, Blood [[id number]] Collected: 04/06/19330 Order Status: Completed Lab Status: Final result Updated: 04/12/1952 Specimen: Peripheral Blood Special Requests L WRIST Special Requests Testing performed at [facility];[address] [place] [address] RESULT NO GROWTH 6 DAYS RESULT Testing performed at [facility], [address] [place] [address] Comment: Testing performed at [facility], [address] [place] [address] Microbiology Results (72 hrs) No results found [...] might be different from the o riginal. [facility] Service: Vascular Surgery Progress Note SUBJECTIVE Patient Summary: 74 y.o. man with complex medical issues and LE ischemic ulcers, he wa s recently admitted to the [facility] from 03/28/19 to 04/04/19 where he was treated/ diagnosed with systolic heart failure, type 2 KS/NSTEMI, SHAE, ARF. O2 desaturation brought him from SNF to [facility] and current admission today with CHF and [...] of shift chart check review Sunshine Chen [facility] - 04/17/2019 1:38 PM PST Vancomycin [...] as indicated. Thank You, Sunshine Love, PharmD, [facility] 04/17/19 1:38 PM Grover Shaver MD - 04/17/2019 12:25 PM PST [facility] Service: Hospitalist Progress Note Pt: Reagan Shepard AGE/SEX: 74 y.o. male ROOM: [address] [place] [address] : 1945 PCP: Jamar Manuel MD ADMIT DATE: 04/06/2019 TODAY'S DATE: 04/17/2019 Hospital Day/Hospital Course: LOS: 11 days Mr. Shepard is a 74-year-old gentleman with a history of bilateral nonhealing diabetic trisha t ulcers, and history of TBI, stroke, insulin dependent DM, who presents with CHF exacerbati on with hospital course complicated by gross hematuria. Recent history notable for admit to [facility] from 03/28/19 to 04/04/2019 for CHF exacerbation with eventual dischar ge to [facility]. He then re-presented to same hospital due [...] the last 72 hours. IMAGING: Reviewed in [facility], no new results. PROBLEM LIST Principal Problem: [...] Received 8 days of IV antibiotics at [facility] discharged home on with augmentin, now readmitted on 04/06 at [facility] and started on rocephin after sending [...] SQH Code status: Full Dispo: back to [facility] pending cardiac evaluation/optimization, vascular bypass donna wero, final ID recs, tentatively planning for ~04/21 Grover Charles MD 12:25 PM 04/17/2019 Portions of this chart may have been copied from previous notes for continuity of care purp ose Rico Modi MD - 11:19 AM PST [facility] Service: Cardiology/[facility] Interventional cardiology note RE: Reagan [...] minimal reversib ility 2. Recent non-Q wave KS 3. Severe peripheral vascular disease 4. Diabetes [...] might be different from the origi nal. [facility] Service: Infectious Diseases Progress Note Hospital [...] Component Value Units Date/Time Culture, Wound, Superficial [[id number]] (Abnormal) (Susceptibility) Collected: 04/06/19 1546 Order Status: Completed Lab Status: Final result Updated: 04/11/19 0728 Specimen: Body Fluid from Heel, Right Special Requests LT FOOT Special Requests Testing performed at [facility];[address] [place] [address];[place] [address] RESULT -- 1+ ENTEROCOCCUS FAECALIS Aminoglycosides (except [...] Sensitive SUSCEPTIBLE JESSICA Final Gentamicin Sensitive SUSCEPTIBLE JESSIAC Final Levofloxacin Sensitive SUSCEPTIBLE JESSICA Final Tobramycin [...] Sensitive SUSCEPTIBLE JESSICA Final Testing performed at [facility], [address] [place] [address] Culture, Wound, Superficial [[id number]] Collected: 04/06/19 1546 Order Status: Completed Lab Status: Final result Updated: 04/08/19 0937 Specimen: Body Fluid from Heel, Right Special Requests RIGHT FOOT Special Requests Testing performed at [facility];[address] [place] [address] RESULT -- 1+ NORMAL SKIN CELSA ISOLATED RESULT NO FURTHER WORKUP RESULT Testing performed at [facility], [address] [place] [address] Comment: Testing performed at [facility], [address] [place] [address] Culture, Blood [[id number]] Collected: 04/06/19 0338 Order Status: Completed Lab Status: Final result Updated: 04/12/19 0652 Specimen: Peripheral Blood Special Requests R WRIST Special Requests Testing performed at [facility];[address] [place] [address] RESULT NO GROWTH 6 DAYS RESULT Testing performed at [facility], [address] [place] [address] Comment: Testing performed at [facility], [address] [place] [address] Culture, Blood [[id number]] Collected: 04/06/19 0331 Order Status: Completed Lab Status: Final result Updated: 04/12/19 0652 Specimen: Peripheral Blood Special Requests L WRIST Special Requests Testing performed at [facility];[address] [place] [address] RESULT NO GROWTH 6 DAYS RESULT Testing performed at [facility], [address] [place] [address] Comment: Testing performed at [facility], [address] [place] [address] Microbiology Results (72 hrs) No results found [...] might be different from the o sheryl. [facility] Service: Vascular Surgery Progress Note SUBJECTIVE Patient Summary: 74 y.o. man with complex medical issues and LE ischemic ulcers, he wa s recently admitted to the [facility] from 03/28/19 to 04/04/19 where he was treated/ diagnosed with systolic heart failure, type 2 KS/NSTEMI, SHAE, ARF. O2 desaturation brought him from SNF to [facility] and current admission today with CHF and [...] NPO after midnight. Code Status: Full code Bhaun Seaman PA-C Vascular Surgery arrar, Ambrosio Tyson [...] Sánchez MD - 04/16/2019 6:49 PM PST [facility] Service: Infectious Diseases Progress Note Hospital [...] Component Value Units Date/Time Culture, Wound, Superficial [[id number]] (Abnormal) (Susceptibility) Collected: 04/06/19 1546 Order Status: Completed Lab Status: Final result Updated: 04/11/19 8062 Specimen: Body Fluid from Heel, Right Special Requests LT FOOT Special Requests Testing performed at [facility];[address] [place] [address] RESULT -- 1+ ENTEROCOCCUS FAECALIS Aminoglycosides (except [...] Sensitive SUSCEPTIBLE JESSICA Final Testing performed at [facility], [address] [place] [address] Culture, Wound, Superficial [[id number]] Collected: 04/06/19 1546 Order Status: Completed Lab Status: Final result Updated: 04/08/19 0937 Specimen: Body Fluid from Heel, Right Special Requests RIGHT FOOT Special Requests Testing performed at [facility];[address] [place] [address] RESULT -- 1+ NORMAL SKIN CELSA ISOLATED RESULT NO FURTHER WORKUP RESULT Testing performed at [facility], [address] [place] [address] Comment: Testing performed at [facility], [address] [place] [address] Culture, Blood [[id number]] Collected: 04/06/19 0338 Order Status: Completed Lab Status: Final result Updated: 04/12/19 0652 Specimen: Peripheral Blood Special Requests R WRIST Special Requests Testing performed at [facility];[address] [place] [address] RESULT NO GROWTH 6 DAYS RESULT Testing performed at [facility], [address] [place] [address] Comment: Testing performed at [facility], [address] [place] [address], [place] [address] Culture, Blood [[id number]] Collected: 04/06/19 0331 Order Status: Completed Lab Status: Final result Updated: 04/12/1952 Specimen: Peripheral Blood Special Requests L WRIST Special Requests Testing performed at [facility];[address] [place] [address];[place] [address] RESULT NO GROWTH 6 DAYS RESULT Testing performed at [facility], [address] [facility], [place] [address] Comment: Testing performed at [facility], [address] [place] [address], [place] [address] Microbiology Results (72 hrs) No results found [...] note might be different from the original. [facility] Service: Hospitalist Progress Note Pt: Reagan Shepard AGE/SEX: 74 y.o. male ROOM: [address] [place] [address] : 1945 PCP: Jamar Manuel MD ADMIT DATE: 04/06/2019 TODAY'S DATE: 04/16/2019 Hospital Day/Hospital Course: LOS: 10 days Mr. Shepard is a 74-year-old gentleman with a history of bilateral nonhealing diabetic trisha t ulcers, and history of TBI, stroke, insulin dependent DM, who presents with CHF exacerbati on with hospital course complicated by gross hematuria. Recent history notable for admit to [facility] from 03/28/19 to 04/04/2019 for CHF exacerbation with eventual dischar ge to [facility]. He then re-presented to same hospital due [...] Received 8 days of IV antibiotics at [facility] discharged home on with augmentin, now readmitted on 04/06 at [facility] and started on rocephin after sending [...] SQH Code status: Full Dispo: back to [facility] pending cardiac evaluation/optimization, vascular bypass donna wero, [...] Rodrigez RD 04/16/2019 3:21 PM Sunshine Chen, [facility] - 04/16/2019 12:18 PM PST Vancomycin [...] Sunshine Love, PharmD, [facility] 04/16/19 12:16 PM eDlia Bartlett RN - 04/16/2019 10:09 AM PSTPatient [...] Patient encouraged to discuss medication changes with qa internship ragini stanley to stopping medications or making any changes. Patient's questions answered. Heart Fail ure Hot Line number provided to patient. Face to face time was spent with patient providing counseling and education for congestive heart failure. Bhanu Wakefield P A-C - 04/16/2019 8:43 AM PST [facility] Service: Vascular Surgery Progress Note SUBJECTIVE Patient Summary: 74 y.o. man with complex medical issues and LE ischemic ulcers, he wa s recently admitted to the [facility] from 03/28/19 to 04/04/19 where he was treated/ diagnosed with systolic heart failure, type 2 KS/NSTEMI, SHAE, ARF. O2 desaturation brought him from SNF to [facility] and current admission today with CHF and [...] MD - 04/15/2019 1 2:48 PM PST [facility] Service: Hospitalist Progress Note Pt: Reagan Shepard AGE/SEX: 74 y.o. male ROOM: [facility]/4452- : 1945 PCP: Jamar Manuel MD ADMIT DATE: 04/06/2019 TODAY'S DATE: 04/15/2019 Hospital Day/Hospital Course: LOS: 9 days Mr. Shepard is a 74-year-old gentleman with a history of bilateral nonhealing diabetic trisha t ulcers, and history of TBI, stroke, insulin dependent DM, who presents with CHF exacerbati on with hospital course complicated by gross hematuria. Recent history notable for admit to [facility] from 03/28/19 to 04/04/2019 for CHF exacerbation with eventual dischar ge to [facility]. He then re-presented to same hospital due [...] 04/14/19 0629 BNP 587.58* IMAGING: Reviewed in [facility], no new results. PROBLEM LIST Principal Problem: [...] risk stratification . -cardiology consulted -NPO at [facility] for nuc med stress test in morning [...] Received 8 days of IV antibiotics at [facility] discharged home on with augmentin, now readmitted on 04/06 at [facility] and started on rocephin after sending [...] SQH Code status: Full Dispo: back to [facility] pending cardiac evaluation/optimization, vascular bypass donna wero, final ID recs, likely 4-5 more days in hospital Grover Charles MD 12:48 PM 04/15/2019 Portions of this chart may have been copied from previous notes for continuity of care purp ose roctor, Sheila Brown [facility] - 04/15/2019 10:55 AM PST Vancomycin [...] might be differ ent from the original. [facility] Service: Infectious Diseases Progress Note Hospital [...] Component Value Units Date/Time Culture, Wound, Superficial [[id number]] (Abnormal) (Susceptibility) Collected: 04/06/19 1546 Order Status: Completed Lab Status: Final result Updated: 04/11/19 0728 Specimen: Body Fluid from Heel, Right Special Requests LT FOOT Special Requests Testing performed at [facility];[address] [place] [address] 6[address] RESULT -- 1+ ENTEROCOCCUS FAECALIS Aminoglycosides (except [...] Sensitive SUSCEPTIBLE JESSICA Final Testing performed at [facility], [address] [place] [address] 95884 Culture, Wound, Superficial [[id number]] Collected: 04/06/19 1546 Order Status: Completed Lab Status: Final result Updated: 04/08/19 0937 Specimen: Body Fluid from Heel, Right Special Requests RIGHT FOOT Special Requests Testing performed at [facility];[address] [place] [address] 81367 RESULT -- 1+ NORMAL SKIN CELSA ISOLATED RESULT NO FURTHER WORKUP RESULT Testing performed at [facility], [address] [place] [address] Comment: Testing performed at [facility], [address] [place] [address] 75977 Culture, Blood [[id number]] Collected: 04/06/19 0338 Order Status: Completed Lab Status: Final result Updated: 04/12/1952 Specimen: Peripheral Blood Special Requests R WRIST Special Requests Testing performed at [facility];[address] [place] [address] 66831 RESULT NO GROWTH 6 DAYS RESULT Testing performed at [facility], [address] [place] [address] Comment: Testing performed at [facility], [address] [place] [address] 81362 Culture, Blood [[id number]] Collected: 04/06/19 0331 Order Status: Completed Lab Status: Final result Updated: 04/12/1952 Specimen: Peripheral Blood Special Requests L WRIST Special Requests Testing performed at [facility];[address] [place] [address] 86699 RESULT NO GROWTH 6 DAYS RESULT Testing performed at [facility], [facility] [place] [address] Comment: Testing performed at [facility], [address] [place] [address] 74166 Microbiology Results (72 hrs) No results found [...] note might be different from the origin [facility] Service: Hospitalist Progress Note Pt: [...] hematuria. Recent history notable for admit to [facility] from 03/28/19 to 04/04/2019 for CHF exacerbation with eventual dischar ge to [facility]. He then re-presented to same hospital due [...] 04/14/19 0629 BNP 587.58* IMAGING: Reviewed in [facility], no new results. PROBLEM LIST Principal Problem: [...] Received 8 days of IV antibiotics at [facility] discharged home on with augmentin, now readmitted on 04/06 at [facility] and started on rocephin after sending [...] date with age appropriate cancer screening PPx: [facility] Code status: Full Dispo: back to [facility] pending improvement in gross hematuria, CHF exacerbation, re peat angiogram, final ID recs, likely 4-5 more days in hospital Grover Charles MD 1:29 PM 04/14/2019 Portions of this chart may have been copied from previous notes for continuity of care purp ose Lyric Molina RN - 04/14/2019 1:27 PM PST [facility] Service: Wound Care Follow Up Note [...] any additional questions. Lyric Mclain RN, CMSRN, [facility] Inpatient Wound Ostomy Care [phone] 04/14/2019 1:29 PM Dheeraj Barraza, PT - [...] vs stable.Vandana Luciano RN obrandi, Meghan Wolff, [facility] - 04/14/2019 6:31 AM PST Vancomycin [...] indicated. Thank You, Meghan Calvillo, Pharm D, [facility] 04/14/2019, 6:19 AM Vancomycin Dosing History Date [...] Shaver MD - 04/13/2019 4:02 PM PST [facility] Service: Hospitalist Progress Note Pt: Reagan Shepard AGE/SEX: 74 y.o. male ROOM: [address] [place] [address] : 1945 PCP: Jamar Manuel MD ADMIT DATE: 04/06/2019 TODAY'S DATE: 04/13/2019 Hospital Day/Hospital Course: LOS: 7 days Mr. Shepard is a 74-year-old gentleman with a history of bilateral nonhealing diabetic trisha t ulcers, and history of TBI, stroke, insulin dependent DM, who presents with CHF exacerbati on with hospital course complicated by gross hematuria. Recent history notable for admit to [facility] from 03/28/19 to 04/04/2019 for CHF exacerbation with eventual dischar ge to [facility]. He then re-presented to same hospital due [...] Received 8 days of IV antibiotics at [facility] discharged home on with augmentin, now readmitted on 04/06 at [facility] and started on rocephin after sending [...] date with age appropriate cancer screening PPx: [facility] Code status: Full Dispo: back to [facility] pending improvement in gross hematuria, CHF exacerbation, [...] 113.3 kg Adjusted body weight: 89.1 kg [place] body weight: 73 kg Current Vital Signs: [...] [facility]ing a level once the patient [...] as indicated. Thank You, Sunshine Love, PharmD, [facility] 04/13/19 3:20 PM Nandini Sánchez se, MD - 04/13/2019 10:54 AM PST [facility] Service: Infectious Diseases Progress Note Hospital [...] Component Value Units Date/Time Culture, Wound, Superficial [[id number]] (Abnormal) (Susceptibility) Collected: 04/06/19 1546 Order Status: Completed Lab Status: Final result Updated: 04/11/19 0728 Specimen: Body Fluid from Heel, Right Special Requests LT FOOT Special Requests Testing performed at [facility];[address] [place] [address];[place] [address] RESULT -- 1+ ENTEROCOCCUS FAECALIS Aminoglycosides (except [...] Sensitive SUSCEPTIBLE JESSICA Final Testing performed at [facility], [address] [place] [address] 06488 Culture, Wound, Superficial [[id number]] Collected: 04/06/19 1546 Order Status: Completed Lab Status: Final result Updated: 04/08/1937 Specimen: Body Fluid from Heel, Right Special Requests RIGHT FOOT Special Requests Testing performed at [facility];[address] [place] [address] 69465 RESULT -- 1+ NORMAL SKIN CELSA ISOLATED RESULT NO FURTHER WORKUP RESULT Testing performed at [facility], [address] [place] [address] Comment: Testing performed at [facility], [address] [place] [address] 36979 Culture, Blood [[id number]] Collected: 04/06/198 Order Status: Completed Lab Status: Final result Updated: 04/12/1952 Specimen: Peripheral Blood Special Requests R WRIST Special Requests Testing performed at [facility];[address] [place] [address] 50083 RESULT NO GROWTH 6 DAYS RESULT Testing performed at [facility], [address] [place] [address] Comment: Testing performed at [facility], [address] [place] [address] 88536 Culture, Blood [[id number]] Collected: 04/06/19330 Order Status: Completed Lab Status: Final result Updated: 04/12/1952 Specimen: Peripheral Blood Special Requests L WRIST Special Requests Testing performed at [facility];[address] [place] [address] 79696 RESULT NO GROWTH 6 DAYS RESULT Testing performed at [facility], [address] [place] [address] Comment: Testing performed at [facility], [address] [place] [address] 31823 Microbiology Results (72 hrs) No results found [...] might be different from the o sheryl. [facility] Service: Vascular Surgery Progress Note SUBJECTIVE Patient Summary: 74 y.o. man with complex medical issues and LE ischemic ulcers, he wa s recently admitted to the [facility] from 03/28/19 to 04/04/19 where he was treated/ diagnosed with systolic heart failure, type 2 KS/NSTEMI, SHAE, ARF. O2 desaturation brought him from SNF to [facility] and current admission today with CHF and [...] risks. Signed consent obtained. Will proceed to [facility] [employer] today for right leg angiogram. Moderate Sedation [...] might be different from the o riginal. [facility] Service: Infectious Diseases Progress Note Hospital [...] Component Value Units Date/Time Culture, Wound, Superficial [[id number]] (Abnormal) (Susceptibility) Collected: 04/06/19 1546 Order Status: Completed Lab Status: Final result Updated: 04/11/19 0728 Specimen: Body Fluid from Heel, Right Special Requests LT FOOT Special Requests Testing performed at [facility];[address] [place] [address];[place] [address] RESULT -- 1+ ENTEROCOCCUS FAECALIS Aminoglycosides (except [...] Sensitive SUSCEPTIBLE JESSICA Final Testing performed at [facility], [address] [place] [address] 90360 Culture, Wound, Superficial [[id number]] Collected: 04/06/19 1546 Order Status: Completed Lab Status: Final result Updated: 04/08/19 0937 Specimen: Body Fluid from Heel, Right Special Requests RIGHT FOOT Special Requests Testing performed at [facility];[address] [place] [address] 33092 RESULT -- 1+ NORMAL SKIN CELSA ISOLATED RESULT NO FURTHER WORKUP RESULT Testing performed at [facility], [address] [place] [address] Comment: Testing performed at [facility], [address] [place] [address] 02905 Culture, Blood [[id number]] Collected: 04/06/19 0338 Order Status: Completed Lab Status: Final result Updated: 04/12/19 0652 Specimen: Peripheral Blood Special Requests R WRIST Special Requests Testing performed at [facility];[address] [place] [address] 82443 RESULT NO GROWTH 6 DAYS RESULT Testing performed at [facility], [address] [place] [address] Comment: Testing performed at [facility], [address] [place] [address] 60629 Culture, Blood [[id number]] Collected: 04/06/19 0331 Order Status: Completed Lab Status: Final result Updated: 04/12/19 0652 Specimen: Peripheral Blood Special Requests L WRIST Special Requests Testing performed at [facility];[address] [place] [address];[place] [address] RESULT NO GROWTH 6 DAYS RESULT Testing performed at [facility], [address] [place] [address] Comment: Testing performed at [facility], [address] [place] [address], [place] [address] Microbiology Results (72 hrs) No results found [...] might be different from the origi nal. [facility] Service: Hospitalist Progress Note Pt: Reagan [...] hematuria. Recent history notable for admit to [facility] from 03/28/19 to 04/04/2019 for CHF exacerbation with eventual dischar ge to [facility]. He then re-presented to same hospital due [...] Received 8 days of IV antibiotics at [facility] discharged home on with augmentin, now readmitted on 04/06 at [facility] and started on rocephin after sending [...] SQH Code status: Full Dispo: back to [facility] pending improvement in gross hematuria, CHF exacerbation, re peat angiogram, final ID recs, likely 4-5 more days in hospital Grover Charles MD 4:43 PM 04/12/2019 Portions of this chart may have been copied from previous notes for continuity of care purp ose Bhanu Wakefield PA-C - 04/12/2019 4:00 PM PST [facility] Service: Vascular Surgery Progress Note SUBJECTIVE Patient Summary: 74 y.o. man with complex medical issues and LE ischemic ulcers, he wa s recently admitted to the [facility] from 03/28/19 to 04/04/19 where he was treated/ diagnosed with systolic heart failure, type 2 KS/NSTEMI, SHAE, ARF. O2 desaturation brought him from SNF to [facility] and current admission today with CHF and [...] Bhanu Seaman PA-C Vascular Surgery roSunshine streeter, [facility] - 04/12/2019 12:27 PM PST Vancomycin Dosing Per Pharmacy Subjective/Objective Reagan Shepard is a 74 y.o. 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 Additional antimicrobials: zosyn Quadriplegic/Paraplegic: no Diabetes: yes Baseline Serum Creatinine: 0.6 mg/dL Actual weight: 113.3 kg Adjusted body weight: 89.1 kg [place] body weight: 73 kg Current Vital Signs: [...] as indicated. Thank You, Sunshine Love, PharmD, [facility] 04/12/19 3:27 PM Grover Shaver MD - 04/11/2019 5:06 PM PST [facility] Service: Hospitalist Progress Note Pt: Reagan [...] hematuria. Recent history notable for admit to [facility] from 03/28/19 to 04/04/2019 for CHF exacerbation with eventual dischar ge to [facility]. He then re-presented to same hospital due [...] Received 8 days of IV antibiotics at [facility] discharged home on with augmentin, now readmitted on 04/06 at [facility] and started on rocephin after sending [...] above) Code status: Full Dispo: back to [facility] pending improvement in gross hematuria and CHF exacerbation Grover Charles MD 5:06 PM 04/11/2019 Portions of this chart may have been copied from previous notes for continuity of care purp ose roctor, Sheila Brown [facility] - 04/11/2019 2:03 PM PST Vancomycin Dosing Per Pharmacy Subjective/Objective Reagan Shepard is a 74 y.o. 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 Additional antimicrobials: zosyn Quadriplegic/Paraplegic: no Diabetes: yes Baseline Serum Creatinine: 0.6 mg/dL Actual weight: 113.3 kg Adjusted body weight: 89.1 kg [place] body weight: 73 kg Current Vital Signs: [...] nomogram, current renal function, and desired trough. [facility] ed on patient history, vancomycin [...] therapy as indicated. Thank You, Sheila Ahuja [facility], 04/11/2019, 1:51 PM Hero Sánchez MD - 04/11/2019 10:09 AM PSTFormatting of this note might be different from stephanie brown original. [facility] Service: Infectious Diseases Progress Note Hospital [...] Component Value Units Date/Time Culture, Wound, Superficial [[id number]] (Abnormal) (Susceptibility) Collected: 04/06/19 154 Order Status: Completed Lab Status: Final result Updated: 04/11/19727 Specimen: Body Fluid from Heel, Right Special Requests LT FOOT Special Requests Testing performed at [facility];[address] [place] [address];[place] [address] RESULT -- 1+ ENTEROCOCCUS FAECALIS Aminoglycosides (except [...] Sensitive SUSCEPTIBLE JESSICA Final Testing performed at [facility], [address] [place] [address], [place] [address] Culture, Wound, Superficial [[id number]] Collected: 04/06/19 1546 Order Status: Completed Lab Status: Final result Updated: 04/08/19936 Specimen: Body Fluid from Heel, Right Special Requests RIGHT FOOT Special Requests Testing performed at [facility];[address] [place] [address] 30556 RESULT -- 1+ NORMAL SKIN CELSA ISOLATED RESULT NO FURTHER WORKUP RESULT Testing performed at [facility], [address] [place] [address] 9[address] Comment: Testing performed at [facility], [address] [place] [address] 81107 Culture, Blood [[id number]] Collected: 04/06/198 Order Status: Completed Lab Status: Preliminary result Updated: 04/07/19812 Specimen: Peripheral Blood Special Requests R WRIST Special Requests Testing performed at [facility];[address] [place] [address] 00665 RESULT NO GROWTH AT THIS TIME RESULT Testing performed at [facility], [address] [place] [address] 80776 Comment: Testing performed at [facility], [address] [place] [address] 23026 Culture, Blood [[id number]] Collected: 04/06/191 Order Status: Completed Lab Status: Preliminary result Updated: 04/07/19812 Specimen: Peripheral Blood Special Requests L WRIST Special Requests Testing performed at [facility];[address] [place] [address] 39112 RESULT NO GROWTH AT THIS TIME RESULT Testing performed at [facility], [address] [place] [address] 40560 Comment: Testing performed at [facility], [address] [place] [address] 24277 Microbiology Results (72 hrs) No results found [...] Shaver MD - 04/10/2019 4:51 PM PST [facility] Service: Hospitalist Progress Note Pt: Reagan Shepard AGE/SEX: 74 y.o. male ROOM: [facility]/4452- : 1945 PCP: Jamar Manuel MD ADMIT DATE: 04/06/2019 TODAY'S DATE: 04/10/2019 Hospital Day/Hospital Course: LOS: 4 days Mr. Shepard is a 74-year-old gentleman with a history of bilateral nonhealing diabetic trisha t ulcers, and history of TBI, stroke, insulin dependent DM, who presents with CHF exacerbati on with hospital course complicated by gross hematuria. Recent history notable for admit to [facility] from 03/28/19 to 04/04/2019 for CHF exacerbation with eventual dischar ge to [facility]. He then re-presented to same hospital due [...] INR 1.2 PTT 34* IMAGING: Reviewed in [facility], no new results. PROBLEM LIST Principal Problem: [...] Received 8 days of IV antibiotics at [facility] discharged home on with augmentin, now readmitted on 04/06 at [facility] and started on rocephin after sending [...] above) Code status: Full Dispo: back to [facility] pending improvement in gross hematuria and CHF exacerbation Grover Charles MD 4:51 PM 04/10/2019 Portions of this chart may have been copied from previous notes for continuity of care purp ose Hero Sánchez MD - 04/10/2019 2:27 PM PSTFormatting of this note might be different from the ramiro rags[place]. [facility] Service: Infectious Diseases Progress Note Hospital [...] Component Value Units Date/Time Culture, Wound, Superficial [[id number]] (Abnormal) (Susceptibility) Collected: 04/06/191545 Order Status: Completed Lab Status: Preliminary result Updated: 04/10/19929 Specimen: Body Fluid from Heel, Right Special Requests LT FOOT Special Requests Testing performed at [facility];[address] [place] [address];[place] [address] RESULT -- 1+ ENTEROCOCCUS FAECALIS Aminoglycosides (except for high-level resistance testing), cephalosporins, clindamycin, an d trimethoprim-sulfamethoxazole may appear active in vitro but they are not effective clinic ally. RESULT -- 1+ ENTEROBACTER CLOACAE COMPLEX RESULT -- 1+ STAPHYLOCOCCUS AUREUS RESULT SUSCEPTIBILITY TO FOLLOW RESULT Testing performed at [facility], [address] [place] [address] Susceptibility Enterococcus faecalis (1) Antibiotic Interpretation Microscan [...] Sensitive SUSCEPTIBLE JESSICA Preliminary Testing performed at [facility], [address] [place] [address], [place] [address] Culture, Wound, Superficial [[id number]] Collected: 04/06/191545 Order Status: Completed Lab Status: Final result Updated: 04/08/1937 Specimen: Body Fluid from Heel, Right Special Requests RIGHT FOOT Special Requests Testing performed at [facility];[address] [place] [address] 72283 RESULT -- 1+ NORMAL SKIN CELSA ISOLATED RESULT NO FURTHER WORKUP RESULT Testing performed at [facility], [address] [place] [address]655 Comment: Testing performed at [facility], [address] [place] [address] 00702 Culture, Blood [[id number]] Collected: 04/06/19337 Order Status: Completed Lab Status: Preliminary result Updated: 04/07/19812 Specimen: Peripheral Blood Special Requests R WRIST Special Requests Testing performed at [facility];[address] [place] [address] 75132 RESULT NO GROWTH AT THIS TIME RESULT Testing performed at [facility], [address] [place] [address] 80227 Comment: Testing performed at [facility], [address] [place] [address] 59994 Culture, Blood [[id number]] Collected: 04/06/19330 Order Status: Completed Lab Status: Preliminary result Updated: 04/07/19812 Specimen: Peripheral Blood Special Requests L WRIST Special Requests Testing performed at [facility];[address] [place] [address] 38852 RESULT NO GROWTH AT THIS TIME RESULT Testing performed at [facility], [address] [place] [address] 17933 Comment: Testing performed at [facility], [address] [place] [address] 02089 Microbiology Results (72 hrs) No results found [...] this note might be different from the [facility] Service: Urology Progress Note Hospital Day: [...] of congestive failure. Signed by: Madison Solis [facility] Sign Date/Time: 04/09/2019 9:25 AM US [...] essential h ypertension, insulin-dependent diabetes, history of KS, GERD, ischemic stroke, diffuse signi ficant peripheral [...] Lujan MD - 04/09/2019 6:21 PM PST [facility] Service: Urology Progress Note Hospital Day: LOS: 3 days Post-Op Day: * No surgery found * SUBJECTIVE Events Overnight: This 74-year-old gentleman with a known history of insulin-dependen t diabetes mellitus, advanced peripheral vascular disease, osteomyelitis of right foot, diab etic foot ulcers which are significant and advanced in both feet, left hemiparesis, essentia l hypertension, hyperkalemia, history of GERD and non-STEMI KS, history of bacteremia, histo ry of stroke. [...] Color, UA STRAW Clarity, UA CLEAR Specific [place], Urine 1.006 1.002 - 1.030 Leukocyte esterase, [...] of congestive failure. Signed by: Madison Solis, [facility] Sign Date/Time: 04/09/2019 9:25 AM PROBLEM [...] longstanding history of diabetes, hypertension, GERD, ac [place] left hemiparesis, essential hypertension and very advanced [...] this note might be different from the [facility] Service: Vascular Surgery Progress Note SUBJECTIVE Patient Summary: 74 y.o. man with complex medical issues and LE ischemic ulcers, he wa s recently admitted to the [facility] from 03/28/19 to 04/04/19 where he was treated/ diagnosed with systolic heart failure, type 2 KS/NSTEMI, SHAE, ARF. O2 desaturation brought him from SNF to [facility] and current admission today with CHF and [...] will have him scheduled for 04/12/2019 at [facility] [employer] [employer] for his first leg, then will plan [...] Hospitalist Progress Note Reagan Shepard 74 y.o. [id number] male Jamar Manuel MD Hospital Day: LOS: 3 days Patient Summary: 74-year-old gentleman with past medical history of bilateral nonheali ng diabetic foot ulcer, and history of traumatic brain injury, stroke, diabetes mellitus typ e 2 insulin-dependent who was recently admitted to [facility] from 03/28/21 020 with acute hypoxic respiratory failure secondary to systolic CHF exacerbation with eject ion fraction of 40%, CTA chest negative for PE, troponin was minimally elevated 0.44 treated conservatively with medical therapy discharge to [facility] who went back to [facility] emergency department with worsening shortness of [...] 04/09/2019 1044 Gross per 24 hour Intake 98460 ml Output 9850 ml Net 856 ml [...] received 8 days of IV antibiotic at [facility] discharged home on on Augmentin readmitted on at [facility] and started on Rocephin after sending 2 [...] might be different from the o riginal. [facility] Service: Podiatry Progress Note Hospital Day: LOS: 3 days Post-Op Day: * No surgery found * SUBJECTIVE Patient Summary: The patient is 74 y.o. male with significant cardiac and IDDM2 past medical history with recent admissions to [facility] where he was found to have el evated troponin level and he became decompensated and desaturated and was transferred to [facility] for a higher level of care. [...] Ady Mata RN - 04/08/2019 9:49 PM [id number]: pt a/o to all, vss. cbi in [...] Hospitalist Progress Note Reagan Shepard 74 y.o. [id number] male Jamar Manuel MD Hospital Day: LOS: 2 days Patient Summary: 74-year-old gentleman with past medical history of bilateral nonheali ng diabetic foot ulcer, and history of traumatic brain injury, stroke, diabetes mellitus typ e 2 insulin-dependent who was recently admitted to [facility] from 03/28/21 020 with acute hypoxic respiratory failure secondary to systolic CHF exacerbation with eject ion fraction of 40%, CTA chest negative for PE, troponin was minimally elevated 0.44 treated conservatively with medical therapy discharge to [facility] who went back to [facility] emergency department with worsening shortness of [...] received 8 days of IV antibiotic at [facility] discharged home on on Augmentin readmitted on at [facility] and started on Rocephin after sending 2 [...] might be different from th e original. [facility] Service: Cardiology Progress Note Hospital Day: [...] Nandini Barboza RN - 04/07/2019 10:48 PM [id number]: pt a/o to all, occasionally forgetful, vss. [...] Hospitalist Progress Note Reagan Shepard 74 y.o. [id number] male Jamar Manuel MD Hospital Day: LOS: 1 day Patient Summary: 74-year-old gentleman with past medical history of bilateral nonheali ng diabetic foot ulcer, and history of traumatic brain injury, stroke, diabetes mellitus typ e 2 insulin-dependent who was recently admitted to [facility] from 03/28/21 020 with acute hypoxic respiratory failure secondary to systolic CHF exacerbation with eject ion fraction of 40%, CTA chest negative for PE, troponin was minimally elevated 0.44 treated conservatively with medical therapy discharge to [facility] who went back to [facility] emergency department with worsening shortness of [...] received 8 days of IV antibiotic at [facility] discharged home on on Augmentin readmitted on at [facility] and started on Rocephin after sending 2 [...] might be different from th e original. [facility] Service: Cardiology Progress Note Hospital Day: [...] Andrés Novoa RN - 04/06/2019 10:15 AM [facility] Service: Wound/Ostomy Care Progress Note Wound [...] | | | | | right foot ([facility]) | 04/20/2019 until | | | | | | 04/20/2020 | + +---------+--------+ + + | Comprehensive | Lab | Routin | Other | Weekly for 2 | | Metabolic Panel | | e | osteomyelitis of | Occurrences starting | | | | | right foot ([facility]) | 04/20/2019 until | | | | | | 04/20/2020 | + +---------+--------+ + + | C-Reactive Protein | Lab | Routin | Other | Weekly for 6 | | | | e | osteomyelitis of | Occurrences starting | | | | | right foot ([facility]) | 04/20/2019 until | | | | | | 04/20/2020 | + +---------+--------+ + + | Sedimentation Rate | Lab | Routin | Other | Weekly for 6 | | | | e | osteomyelitis of | Occurrences starting | | | | | right foot ([facility]) | 04/20/2019 until | | | | [...] | | | | | PST | ([facility]) Peripheral | | | | | | vascular disease | | | | | | ([facility]) Other | | | | | | osteomyelitis of | | | | | | right foot ([facility]) | | | | | | Essential | | | | | | hypertension Acute | | | | | | left hemiparesis | | | | | | ([facility]) | | + +--------+ + + + [...] | | | | | performed at [facility];[address] | | | | | | [facility];[place], [place] | | | | | | [address] | | | | + + + + + + + + | Specimen | + + | Blood | + + + + + + + | Performing | Address | City/State/Zipcode | Phone Number | | Organization | | | | + + + + + | [facility] | [address] | [place] [address] | [phone] | + + + + + POC [...] | | | POC | performed at [facility];[address] | | LABORATORY | | | | [address];[place], [place] | | | | | | [address] | | | | + + + + + + + + | Specimen | + + | | + + + + + + + | Performing | Address | City/State/Zipcode | Phone Number | | Organization | | | | + + + + + | [facility] | [address] | [place] [address] | [phone] | + + + + + POC [...] | | | POC | performed at [facility];[address] | | LABORATORY | | | | [address];[place] | | | | | | [address] | | | | + + + + + + + + | Specimen | + + | | + + + + + + + | Performing | Address | City/State/Zipcode | Phone Number | | Organization | | | | + + + + + | [facility] | [address] | [place] [address] | [phone] | + + + + + POC Glucose (04/21/2019 5:12 AM PST) + + + + + + | Component | Value | Ref Range | Performed | Pathologist | | | | | At | Signature | + + + + + + | Glucose, | 146 (H)Comment: Testing | 65 - 99 mg/dL | [facility] | | | POC | performed at [facility];[address] | | LABORATORY | | | | [address];[place], [place] | | | | | | [address] | | | | + + + + + + + + | Specimen | + + | | + + + + + + + | Performing | Address | City/State/Zipcode | Phone Number | | Organization | | | | + + + + + | [facility] | [address] | [place] [address] | [phone] | + + + + + POC [...] | | | POC | performed at [facility];[address] | | LABORATORY | | | | [address];[place] | | | | | | [address] | | | | + + + + + + + + | Specimen | + + | | + + + + + + + | Performing | Address | City/State/Zipcode | Phone Number | | Organization | | | | + + + + + | [facility] | [address] | [place] [address] | [phone] | + + + + + POC Glucose (04/20/2019 5:30 PM PST) + + + + + + | Component | Value | Ref Range | Performed | Pathologist | | | | | At | Signature | + + + + + + | Glucose, | 220 (H)Comment: Testing | 65 - 99 mg/dL | [facility] | | | POC | performed at [facility];[address] | | LABORATORY | | | | [address];[place] | | | | | | [address] | | | | + + + + + + + + | Specimen | + + | | + + + + + + + | Performing | Address | City/State/Zipcode | Phone Number | | Organization | | | | + + + + + | [facility] | [address] | [place] [address] | [phone] | + + + + + POC Glucose (04/20/2019 5:04 PM PST) + + + + + + | Component | Value | Ref Range | Performed | Pathologist | | | | | At | Signature | + + + + + + | Glucose, | 199 (H)Comment: Testing | 65 - 99 mg/dL | [facility] | | | POC | performed at [facility];[address] | | LABORATORY | | | | [address];[place] | | | | | | [address] | | | | + + + + + + + + | Specimen | + + | | + + + + + + + | Performing | Address | City/State/Zipcode | Phone Number | | Organization | | | | + + + + + | [facility] | [address] | [place] [address] | [phone] | + + + + + POC [...] | | | POC | performed at [facility];[address] | | LABORATORY | | | | [address];[place], [place] | | | | | | [address] | | | | + + + + + + + + | Specimen | + + | | + + + + + + + | Performing | Address | City/State/Zipcode | Phone Number | | Organization | | | | + + + + + | [facility] | [address] | [place] [address] | [phone] | + + + + + Vancomycin Level (04/20/2019 12:39 PM PST) + + + + + + | Component | Value | Ref Range | Performed | Pathologist | | | | | At | Signature | + + + + + + | Vancomycin | 18.3Comment: Testing | ug/mL | [facility] | | | Random, | performed at [facility];[address] | | LABORATORY | | | Serum | [address];[place] | | | | | | [address] | | | | + + + + + + + + | Specimen | + + | Blood | + + + + + + + | Performing | Address | City/State/Zipcode | Phone Number | | Organization | | | | + + + + + | [facility] | [address] | [place] [address] | [phone] | + + + + + POC Glucose (04/20/2019 8:58 AM PST) + + + + + + | Component | Value | Ref Range | Performed | Pathologist | | | | | At | Signature | + + + + + + | Glucose, | 244 (H)Comment: Testing | 65 - 99 mg/dL | [facility] | | | POC | performed at [facility];[address] | | LABORATORY | | | | [address];[place] | | | | | | [address] | | | | + + + + + + + + | Specimen | + + | | + + + + + + + | Performing | Address | City/State/Zipcode | Phone Number | | Organization | | | | + + + + + | [facility] | [address] | [place] [address] | [phone] | + + + + + POC Glucose (04/20/2019 8:16 AM PST) + + + + + + | Component | Value | Ref Range | Performed | Pathologist | | | | | At | Signature | + + + + + + | Glucose, | 300 (H)Comment: Testing | 65 - 99 mg/dL | [facility] | | | POC | performed at [facility];[address] | | LABORATORY | | | | [address];[place], [place] | | | | | | [address] | | | | + + + + + + + + | Specimen | + + | | + + + + + + + | Performing | Address | City/State/Zipcode | Phone Number | | Organization | | | | + + + + + | [facility] | [address] | [place] [address] | [phone] | + + + + + POC [...] | | | POC | performed at [facility];[address] | | LABORATORY | | | | [address];[place] | | | | | | [address] | | | | + + + + + + + + | Specimen | + + | | + + + + + + + | Performing | Address | City/State/Zipcode | Phone Number | | Organization | | | | + + + + + | [facility] | [address] | [place] [address] | [phone] | + + + + + POC [...] | | | POC | performed at [facility];[address] | | LABORATORY | | | | [address];[place], [place] | | | | | | [address] | | | | + + + + + + + + | Specimen | + + | | + + + + + + + | Performing | Address | City/State/Zipcode | Phone Number | | Organization | | | | + + + + + | [facility] | [address] | [place] [address] | [phone] | + + + + + POC Glucose (04/19/2019 12:44 PM PST) + + + + + + | Component | Value | Ref Range | Performed | Pathologist | | | | | At | Signature | + + + + + + | Glucose, | 209 (H)Comment: Testing | 65 - 99 mg/dL | [facility] | | | POC | performed at [facility];[address] | | LABORATORY | | | | [address];[place] | | | | | | [address] | | | | + + + + + + + + | Specimen | + + | | + + + + + + + | Performing | Address | City/State/Zipcode | Phone Number | | Organization | | | | + + + + + | [facility] | [address] | [place] [address] | [phone] | + + + + + POC Glucose (04/19/2019 8:13 AM PST) + + + + + + | Component | Value | Ref Range | Performed | Pathologist | | | | | At | Signature | + + + + + + | Glucose, | 176 (H)Comment: Testing | 65 - 99 mg/dL | [facility] | | | POC | performed at [facility];[address] | | LABORATORY | | | | [address];[place], [place] | | | | | | [address] | | | | + + + + + + + + | Specimen | + + | | + + + + + + + | Performing | Address | City/State/Zipcode | Phone Number | | Organization | | | | + + + + + | [facility] | [address] | [place] [address] | [phone] | + + + + + Basic [...] | | | | | performed at [facility], [address] | | | | | | [facility], | | | | | | [place] [address] | | | | + + + + + + + + | Specimen | + + | Blood | + + + + + + + | Performing | Address | City/State/Zipcode | Phone Number | | Organization | | | | + + + + + | [facility] | [address] | [place] [address] | [phone] | + + + + + CBC [...] | | | | | performed at [facility], [address] | | | | | | [address], | | | | | | [place] [address] | | | | | |MICRO | | | | | |NORMAL PLT MORPH | | | | | |Testing performed at [facility], [address] [facility], [place] [address] | | | | | | | | | | + + +---- + + + + + | Specimen | + + | Blood | + + + + + + + | Performing | Address | City/State/Zipcode | Phone Number | | Organization | | | | + + + + + | [facility] | [address] | [place] [address] | [phone] | + + + + + POC [...] | | | POC | performed at [facility];[address] | | LABORATORY | | | | [address];[place] | | | | | | [address] | | | | + + + + + + + + | Specimen | + + | | + + + + + + + | Performing | Address | City/State/Zipcode | Phone Number | | Organization | | | | + + + + + | [facility] | [address] | [place] [address] | [phone] | + + + + + POC Glucose (04/18/2019 9:02 PM PST) + + + + + + | Component | Value | Ref Range | Performed | Pathologist | | | | | At | Signature | + + + + + + | Glucose, | 295 (H)Comment: Testing | 65 - 99 mg/dL | [facility] | | | POC | performed at [facility];[address] | | LABORATORY | | | | [address];[place] | | | | | | [address] | | | | + + + + + + + + | Specimen | + + | | + + + + + + + | Performing | Address | City/State/Zipcode | Phone Number | | Organization | | | | + + + + + | [facility] | [address] | [place] [address] | [phone] | + + + + + POC Glucose (04/18/2019 8:01 PM PST) + + + + + + | Component | Value | Ref Range | Performed | Pathologist | | | | | At | Signature | + + + + + + | Glucose, | 245 (H)Comment: Testing | 65 - 99 mg/dL | [facility] | | | POC | performed at [facility];[address] | | LABORATORY | | | | [address];[place] | | | | | | [address] | | | | + + + + + + + + | Specimen | + + | | + + + + + + + | Performing | Address | City/State/Zipcode | Phone Number | | Organization | | | | + + + + + | [facility] | [address] | [place] [address] | [phone] | + + + + + POC Glucose (04/18/2019 6:08 PM PST) + + + + + + | Component | Value | Ref Range | Performed | Pathologist | | | | | At | Signature | + + + + + + | Glucose, | 181 (H)Comment: Testing | 65 - 99 mg/dL | [facility] | | | POC | performed at [facility];[address] | | LABORATORY | | | | [address];[place], [place] | | | | | | [address] | | | | + + + + + + + + | Specimen | + + | | + + + + + + + | Performing | Address | City/State/Zipcode | Phone Number | | Organization | | | | + + + + + | [facility] | [address] | [place] [address] | [phone] | + + + + + POC [...] | | | POC | performed at [facility];[address] | | LABORATORY | | | | [address];[place], [place] | | | | | | [address] | | | | + + + + + + + + | Specimen | + + | | + + + + + + + | Performing | Address | City/State/Zipcode | Phone Number | | Organization | | | | + + + + + | [facility] | [address] | [place] [address] | [phone] | + + + + + NM [...] Testing | 65 - 99 mg/dL | [facility] | | | POC | performed at [facility];[address] | | LABORATORY | | | | [address];[place] | | | | | | [address] | | | | + + + + + + + + | Specimen | + + | | + + + + + + + | Performing | Address | City/State/Zipcode | Phone Number | | Organization | | | | + + + + + | [facility] | [address] | [place] [address] | [phone] | + + + + + Basic [...] | | | | | performed at [facility];[address] | | | | | | [address];[place], [place] | | | | | | [address] | | | | + + + + + + + + | Specimen | + + | Blood | + + + + + + + | Performing | Address | City/State/Zipcode | Phone Number | | Organization | | | | + + + + + | [facility] | [address] | [place] [address] | [phone] | + + + + + CBC [...] | | | Estimate | performed at [facility] | | LABORATORY | | | | [address];[place] | | | | | | [address] | | | | + + + + + + + + | Specimen | + + | Blood | + + + + + + + | Performing | Address | City/State/Zipcode | Phone Number | | Organization | | | | + + + + + | [facility] | [address] | [place] [address] | [phone] | + + + + + POC Glucose (04/17/2019 8:41 PM PST) + + + + + + | Component | Value | Ref Range | Performed | Pathologist | | | | | At | Signature | + + + + + + | Glucose, | 183 (H)Comment: Testing | 65 - 99 mg/dL | [facility] | | | POC | performed at [facility];[address] | | LABORATORY | | | | [address];[place], [place] | | | | | | [address] | | | | + + + + + + + + | Specimen | + + | | + + + + + + + | Performing | Address | City/State/Zipcode | Phone Number | | Organization | | | | + + + + + | [facility] | [address] | [place] [address] | [phone] | + + + + + POC [...] | | | POC | performed at [facility];[address] | | LABORATORY | | | | [address];[place] | | | | | | [address] | | | | + + + + + + + + | Specimen | + + | | + + + + + + + | Performing | Address | City/State/Zipcode | Phone Number | | Organization | | | | + + + + + | [facility] | [address] | [place] [address] | [phone] | + + + + + Vancomycin, Trough (04/17/2019 12:30 PM PST) + + + + + + | Component | Value | Ref Range | Performed | Pathologist | | | | | At | Signature | + + + + + + | Vancomycin, | 17.2Comment: 15 to 20 | 10 - 20 ug/mL | [facility] | | | Trough | ug/mL for [...] | | | | | performed at [facility];[address] | | | | | | [address];[place] | | | | | | [address] | | | | + + + + + + + + | Specimen | + + | Blood | + + + + + + + | Performing | Address | City/State/Zipcode | Phone Number | | Organization | | | | + + + + + | [facility] | [address] | [place] [address] | [phone] | + + + + + POC [...] | | | POC | performed at [facility];[address] | | LABORATORY | | | | [address];[place] | | | | | | [address] | | | | + + + + + + + + | Specimen | + + | | + + + + + + + | Performing | Address | City/State/Zipcode | Phone Number | | Organization | | | | + + + + + | [facility] | [address] | [place] [address] | [phone] | + + + + + POC [...] | | | POC | performed at [facility];[address] | | LABORATORY | | | | [address];[place] | | | | | | [address] | | | | + + + + + + + + | Specimen | + + | | + + + + + + + | Performing | Address | City/State/Zipcode | Phone Number | | Organization | | | | + + + + + | [facility] | [address] | [place] [address] | [phone] | + + + + + POC [...] | | | POC | performed at [facility];[address] | | LABORATORY | | | | [address];[place], [place] | | | | | | [address] | | | | + + + + + + + + | Specimen | + + | | + + + + + + + | Performing | Address | City/State/Zipcode | Phone Number | | Organization | | | | + + + + + | [facility] | [address] | [place] [address] | [phone] | + + + + + Basic [...] | | | | | performed at [facility], [address] | | | | | | [facility], | | | | | | [place] [address] | | | | + + + + + + + + | Specimen | + + | Blood | + + + + + + + | Performing | Address | City/State/Zipcode | Phone Number | | Organization | | | | + + + + + | [facility] | [address] | [place] [address] | [phone] | + + + + + CBC [...] | | | | | performed at [facility], [address] | | | | | | [facility], | | | | | | [place] [address] | | | | | |MICRO | | | | | |NORMAL PLT MORPH | | | | | |Testing performed at [facility], [address] [facility], [place] [address] | | | | | | | | | | + + +---- + + + + + | Specimen | + + | Blood | + + + + + + + | Performing | Address | City/State/Zipcode | Phone Number | | Organization | | | | + + + + + | [facility] | [address] | [place] [address] | [phone] | + + + + + POC Glucose (04/16/2019 8:57 PM PST) + + + + + + | Component | Value | Ref Range | Performed | Pathologist | | | | | At | Signature | + + + + + + | Glucose, | 96Comment: Testing | 65 - 99 mg/dL | [facility] | | | POC | performed at [facility];[address] | | LABORATORY | | | | [address];[place] | | | | | | [address] | | | | + + + + + + + + | Specimen | + + | | + + + + + + + | Performing | Address | City/State/Zipcode | Phone Number | | Organization | | | | + + + + + | [facility] | [address] | [place] [address] | [phone] | + + + + + POC Glucose (04/16/2019 4:39 PM PST) + + + + + + | Component | Value | Ref Range | Performed | Pathologist | | | | | At | Signature | + + + + + + | Glucose, | 192 (H)Comment: Testing | 65 - 99 mg/dL | [facility] | | | POC | performed at [facility] [place] | [address] | | | | [address];[place], [place] | | | | | | [address] | | | | + + + + + + + + | Specimen | + + | | + + + + + + + | Performing | Address | City/State/Zipcode | Phone Number | | Organization | | | | + + + + + | [facility] | [address] | [place] [address] | [phone] | + + + + + POC [...] | | | POC | performed at [facility];[address] | | LABORATORY | | | | [address];[place], [place] | | | | | | [address] | | | | + + + + + + + + | Specimen | + + | | + + + + + + + | Performing | Address | City/State/Zipcode | Phone Number | | Organization | | | | + + + + + | [facility] | [address] | [place] [address] | [phone] | + + + + + POC Glucose (04/16/2019 7:36 AM PST) + + + + + + | Component | Value | Ref Range | Performed | Pathologist | | | | | At | Signature | + + + + + + | Glucose, | 100 (H)Comment: Testing | 65 - 99 mg/dL | [facility] | | | POC | performed at [facility];[address] | | LABORATORY | | | | [address];[place], [place] | | | | | | [address] | | | | + + + + + + + + | Specimen | + + | | + + + + + + + | Performing | Address | City/State/Zipcode | Phone Number | | Organization | | | | + + + + + | [facility] | [address] | [place] [address] | [phone] | + + + + + CBC [...] | | | | | performed at [facility], [address] | | | | | | [facility], | | | | | | [place] [address] | | | | | |MICRO | | | | | |NORMAL PLT MORPH | | | | | |Testing performed at [facility], [address] [place] [address] | | | | | | | | | | + + +---- + + + + + | Specimen | + + | Blood | + + + + + + + | Performing | Address | City/State/Zipcode | Phone Number | | Organization | | | | + + + + + | [facility] | [address] | [place] [address] | [phone] | + + + + + Basic [...] | >60Comment: GFR <60: | >60 | [facility] | | | GFR | CHRONIC [...] | | | | | performed at [facility], [address] | | | | | | [facility], | | | | | | [place] [address] | | | | + + + + + + + + | Specimen | + + | Blood | + + + + + + + | Performing | Address | City/State/Zipcode | Phone Number | | Organization | | | | + + + + + | [facility] | [address] | [place] [address] | [phone] | + + + + + POC [...] | | | POC | performed at [facility];[address] | | LABORATORY | | | | [address];[place] | | | | | | [address] | | | | + + + + + + + + | Specimen | + + | | + + + + + + + | Performing | Address | City/State/Zipcode | Phone Number | | Organization | | | | + + + + + | [facility] | [address] | [place] [address] | [phone] | + + + + + POC Glucose (04/15/2019 4:51 PM PST) + + + + + + | Component | Value | Ref Range | Performed | Pathologist | | | | | At | Signature | + + + + + + | Glucose, | 239 (H)Comment: Testing | 65 - 99 mg/dL | [facility] | | | POC | performed at [facility];[address] | | LABORATORY | | | | [address];[place] | | | | | | [address] | | | | + + + + + + + + | Specimen | + + | | + + + + + + + | Performing | Address | City/State/Zipcode | Phone Number | | Organization | | | | + + + + + | [facility] | [address] | [place] [address] | [phone] | + + + + + POC [...] | | | POC | performed at [facility];[address] | | LABORATORY | | | | [address];[place], [place] | | | | | | [address] | | | | + + + + + + + + | Specimen | + + | | + + + + + + + | Performing | Address | City/State/Zipcode | Phone Number | | Organization | | | | + + + + + | [facility] | [address] | [place] [address] | [phone] | + + + + + Type [...] + + + | BB BAND | [id number] | | [facility] | | | | | | LABORATORY | | + + + + + + | UNIT # | [id number] | | [facility] | | | | [...] + + + | UNIT # | [id number] | | [facility] | | | | [...] + + + | UNIT # | [id number] | | [facility] | | | | [...] | | | RESULT | performed at [facility];[address] | | LABORATORY | | | | [address];[place], [place] | | | | | | [address] | | | | + + + + + + + + | Specimen | + + | Blood | + + + + + + + | Performing | Address | City/State/Zipcode | Phone Number | | Organization | | | | + + + + + | [facility] | [address] | [place] [address] | [phone] | + + + + + Red [...] | [facility] | | | COMMENT | [facility];[address] | | LABORATORY | | | | [address];[place] [address] | | | | + + + + + + + + | Specimen | + + | | + + + + + + + | Performing | Address | City/State/Zipcode | Phone Number | | Organization | | | | + + + + + | [facility] | [address] | [place] [address] | [phone] | + + + + + POC Glucose (04/15/2019 9:11 AM PST) + + + + + + | Component | Value | Ref Range | Performed | Pathologist | | | | | At | Signature | + + + + + + | Glucose, | 165 (H)Comment: Testing | 65 - 99 mg/dL | [facility] | | | POC | performed at [facility];[address] | | LABORATORY | | | | [address];[place] | | | | | | [address] | | | | + + + + + + + + | Specimen | + + | | + + + + + + + | Performing | Address | City/State/Zipcode | Phone Number | | Organization | | | | + + + + + | [facility] | [address] | [place] [address] | [phone] | + + + + + Vancomycin, [...] | | | | | performed at [facility];[address] | | | | | | [address];[place], [place] | | | | | | [address] | | | | + + + + + + + + | Specimen | + + | Blood | + + + + + + + | Performing | Address | City/State/Zipcode | Phone Number | | Organization | | | | + + + + + | [facility] | [address] | [place] [address] | [phone] | + + + + + CBC [...] | | | Estimate | performed at [facility];[address] | | LABORATORY | | | | [address];[place] | | | | | | [address] | | | | + + + + + + + + | Specimen | + + | Blood | + + + + + + + | Performing | Address | City/State/Zipcode | Phone Number | | Organization | | | | + + + + + | [facility] | [address] | [place] [address] | [phone] | + + + + + Basic [...] | | | | | | MDRD [facility] traceable | | | | | | equation.Testing | | | | | | performed at [facility];[address] | | | | | | [facility];[place], [place] | | | | | | [address] | | | | + + + + + + + + | Specimen | + + | Blood | + + + + + + + | Performing | Address | City/State/Zipcode | Phone Number | | Organization | | | | + + + + + | [facility] | [address] | [place] [address] | [phone] | + + + + + POC [...] | | | POC | performed at [facility];[address] | | LABORATORY | | | | [address];[place], [place] | | | | | | [address] | | | | + + + + + + + + | Specimen | + + | | + + + + + + + | Performing | Address | City/State/Zipcode | Phone Number | | Organization | | | | + + + + + | [facility] | [address] | [place] [address] | [phone] | + + + + + POC Glucose (04/14/2019 4:58 PM PST) + + + + + + | Component | Value | Ref Range | Performed | Pathologist | | | | | At | Signature | + + + + + + | Glucose, | 175 (H)Comment: Testing | 65 - 99 mg/dL | [facility] | | | POC | performed at [facility];[address] | | LABORATORY | | | | [address];[place], [place] | | | | | | [address] | | | | + + + + + + + + | Specimen | + + | | + + + + + + + | Performing | Address | City/State/Zipcode | Phone Number | | Organization | | | | + + + + + | [facility] | [address] | [place] [address] | [phone] | + + + + + POC Glucose (04/14/2019 11:43 AM PST) + + + + + + | Component | Value | Ref Range | Performed | Pathologist | | | | | At | Signature | + + + + + + | Glucose, | 153 (H)Comment: Testing | 65 - 99 mg/dL | [facility] | | | POC | performed at [facility];[address] | | LABORATORY | | | | [address];[place] | | | | | | [address] | | | | + + + + + + + + | Specimen | + + | | + + + + + + + | Performing | Address | City/State/Zipcode | Phone Number | | Organization | | | | + + + + + | [facility] | [address] | [place] [address] | [phone] | + + + + + ECHO [...] Testing | 65 - 99 mg/dL | [facility] | | | POC | performed at [facility];[address] | | LABORATORY | | | | [address];[place] | | | | | | [address] | | | | + + + + + + + + | Specimen | + + | | + + + + + + + | Performing | Address | City/State/Zipcode | Phone Number | | Organization | | | | + + + + + | [facility] | [address] | [place] [address] | [phone] | + + + + + B [...] | | LABORATORY | | | | [facility];[address] [facility] | | | | | | Blvd;[place] [address] | | | | + + + + + + + + | Specimen | + + | | + + + + + + + | Performing | Address | City/State/Zipcode | Phone Number | | Organization | | | | + + + + + | [facility] | [address] | [place] [address] | [phone] | + + + + + CBC [...] | | | Estimate | performed at [facility];[address] | | LABORATORY | | | | [address];[place] | | | | | | [address] | | | | + + + + + + + + | Specimen | + + | | + + + + + + + | Performing | Address | City/State/Zipcode | Phone Number | | Organization | | | | + + + + + | [facility] | [address] | [place] [address] | [phone] | + + + + + Troponin I (04/14/2019 6:29 AM PST) + + + + + + | Component | Value | Ref Range | Performed | Pathologist | | | | | At | Signature | + + + + + + | Troponin I | 0.014Comment: 0.04 | 0.00 - 0.04 | [facility] | | | | ng/mL or [...] at | | | | | | [facility];[address] [place] [address] | | | | | | Bl;[place] [address] | | | | + + + + + + + + | Specimen | + + | Blood | + + + + + + + | Performing | Address | City/State/Zipcode | Phone Number | | Organization | | | | + + + + + | [facility] | [address] | [place] [address] | [phone] | + + + + + Basic [...] | | | | | performed at [facility];[address] | | | | | | [address];[place], [place] | | | | | | [address] | | | | + + + + + + + + | Specimen | + + | Blood | + + + + + + + | Performing | Address | City/State/Zipcode | Phone Number | | Organization | | | | + + + + + | [facility] | [address] | [place] [address] | [phone] | + + + + + Vancomycin Level (04/14/2019 4:53 AM PST) + + + + + + | Component | Value | Ref Range | Performed | Pathologist | | | | | At | Signature | + + + + + + | Vancomycin | 20.6Comment: Testing | ug/mL | [facility] | | | Random, | performed at [facility];[address] | | LABORATORY | | | Serum | [address];[place] | | | | | | [address] | | | | + + + + + + + + | Specimen | + + | Blood | + + + + + + + | Performing | Address | City/State/Zipcode | Phone Number | | Organization | | | | + + + + + | [facility] | [address] | [place] [address] | [phone] | + + + + + POC [...] | | | POC | performed at [facility];[address] | | LABORATORY | | | | [address];[place], [place] | | | | | | [address] | | | | + + + + + + + + | Specimen | + + | | + + + + + + + | Performing | Address | City/State/Zipcode | Phone Number | | Organization | | | | + + + + + | [facility] | [address] | [place] [address] | [phone] | + + + + + Troponin I (04/14/2019 1:19 AM PST) + + + + + + | Component | Value | Ref Range | Performed | Pathologist | | | | | At | Signature | + + + + + + | Troponin I | 0.015Comment: 0.04 | 0.00 - 0.04 | [facility] | | | | ng/mL or [...] at | | | | | | [facility];[address] [facility] | | | | | | [facility];[place] [address] | | | | + + + + + + + + | Specimen | + + | Blood | + + + + + + + | Performing | Address | City/State/Zipcode | Phone Number | | Organization | | | | + + + + + | [facility] | [address] | [place] [address] | [phone] | + + + + + ECG [...] | | | POC | performed at [facility];[address] | | LABORATORY | | | | [address];[place], [place] | | | | | | [address] | | | | + + + + + + + + | Specimen | + + | | + + + + + + + | Performing | Address | City/State/Zipcode | Phone Number | | Organization | | | | + + + + + | [facility] | [address] | [place] [address] | [phone] | + + + + + POC Glucose (04/13/2019 4:19 PM PST) + + + + + + | Component | Value | Ref Range | Performed | Pathologist | | | | | At | Signature | + + + + + + | Glucose, | 109 (H)Comment: Testing | 65 - 99 mg/dL | [facility] | | | POC | performed at [facility];[address] | | LABORATORY | | | | [address];[place] | | | | | | [address] | | | | + + + + + + + + | Specimen | + + | | + + + + + + + | Performing | Address | City/State/Zipcode | Phone Number | | Organization | | | | + + + + + | [facility] | [address] | [place] [address] | [phone] | + + + + + XR [...] catheterization with right leg runoff4. Right SFA ELDERLY CAREGIVER | | | crossing and atherectomy using Bard 14 S crossing catheter SURGEON: | | | Simba Cheng MD ESOL TEACHER: None ANESTHESIA: Moderate sedation and local | [...] | | identified and brought to the Vegetable Farmworker. The patient was placed supine | | [...] sized to a 4 | | | Mexican sheath. A Omni flush catheter was then [...] inserted over the catheter and the 4 Mexican sheath was | | | removed. A 7 Mexican destination sheath was then inserted over the [...] | | | POC | performed at [facility];[address] | | LABORATORY | | | | [address];[place] | | | | | | [address] | | | | + + + + + + + + | Specimen | + + | | + + + + + + + | Performing | Address | City/State/Zipcode | Phone Number | | Organization | | | | + + + + + | [facility] | [address] | [place] [address] | [phone] | + + + + + POC Glucose (04/13/2019 7:59 AM PST) + + + + + + | Component | Value | Ref Range | Performed | Pathologist | | | | | At | Signature | + + + + + + | Glucose, | 124 (H)Comment: Testing | 65 - 99 mg/dL | [facility] | | | POC | performed at [facility];[address] | | LABORATORY | | | | [address];[place] | | | | | | [address] | | | | + + + + + + + + | Specimen | + + | | + + + + + + + | Performing | Address | City/State/Zipcode | Phone Number | | Organization | | | | + + + + + | [facility] | [address] | [place] [address] | [phone] | + + + + + Basic [...] 8.2 (L) | 8.5 - 10.5 | [facility] | | | | | mg/dL | LABORATORY | | + + + + + + | Estimated | >60Comment: GFR <60: | >60 | [facility] | | | GFR | CHRONIC [...] W | | | | | | [facility], | | | | | | [place] [address] | | | | + + + + + + + + | Specimen | + + | Blood | + + + + + + + | Performing | Address | City/State/Zipcode | Phone Number | | Organization | | | | + + + + + | [facility] | [address] | [place] [address] | [phone] | + + + + + CBC [...] | | | | | performed at [facility], [address] | | | | | | [facility], | | | | | | [place] [address] | | | | | |MICRO | | | | | |NORMAL PLT MORPH | | | | | |Testing performed at [facility], [address] [facility], [place] [address] | | | | | | | | | | + + +---- + + + + + | Specimen | + + | Blood | + + + + + + + | Performing | Address | City/State/Zipcode | Phone Number | | Organization | | | | + + + + + | [facility] | [address] | [place] [address] | [phone] | + + + + + POC [...] | | | POC | performed at [facility];[address] | | LABORATORY | | | | [address];[place], [place] | | | | | | [address] | | | | + + + + + + + + | Specimen | + + | | + + + + + + + | Performing | Address | City/State/Zipcode | Phone Number | | Organization | | | | + + + + + | [facility] | [address] | [place] [address] | [phone] | + + + + + POC Glucose (04/12/2019 9:14 PM PST) + + + + + + | Component | Value | Ref Range | Performed | Pathologist | | | | | At | Signature | + + + + + + | Glucose, | 183 (H)Comment: Testing | 65 - 99 mg/dL | [facility] | | | POC | performed at [facility];[address] | | LABORATORY | | | | [address];[place] | | | | | | [address] | | | | + + + + + + + + | Specimen | + + | | + + + + + + + | Performing | Address | City/State/Zipcode | Phone Number | | Organization | | | | + + + + + | [facility] | [address] | [place] [address] | [phone] | + + + + + POC Glucose (04/12/2019 4:28 PM PST) + + + + + + | Component | Value | Ref Range | Performed | Pathologist | | | | | At | Signature | + + + + + + | Glucose, | 211 (H)Comment: Testing | 65 - 99 mg/dL | [facility] | | | POC | performed at [facility];[address] | | LABORATORY | | | | [address];[place] | | | | | | [address] | | | | + + + + + + + + | Specimen | + + | | + + + + + + + | Performing | Address | City/State/Zipcode | Phone Number | | Organization | | | | + + + + + | [facility] | [address] | [place] [address] | [phone] | + + + + + POC [...] | | | POC | performed at [facility];[address] | | LABORATORY | | | | [address];[place] | | | | | | [address] | | | | + + + + + + + + | Specimen | + + | | + + + + + + + | Performing | Address | City/State/Zipcode | Phone Number | | Organization | | | | + + + + + | [facility] | [address] | [place] [address] | [phone] | + + + + + POC [...] | | | POC | performed at [facility];[address] | | LABORATORY | | | | [address];[place] | | | | | | [address] | | | | + + + + + + + + | Specimen | + + | | + + + + + + + | Performing | Address | City/State/Zipcode | Phone Number | | Organization | | | | + + + + + | [facility] | [address] [facility] | [place] [address] | [phone] | + + + + + Basic [...] | | | | | performed at [facility], [address] | | | | | | [facility], | | | | | | [place] [address] | | | | + + + + + + + + | Specimen | + + | Blood | + + + + + + + | Performing | Address | City/State/Zipcode | Phone Number | | Organization | | | | + + + + + | [facility] | [address] | [place] [address] | [phone] | + + + + + CBC [...] | | | | | performed at [facility], [address] | | | | | | [facility], | | | | | | [place] [address] | | | | | |MICRO | | | | | |NORMAL PLT MORPH | | | | | |Testing performed at [facility], [address] [facility], [place] [address] | | | | | | | | | | + + +---- + + + + + | Specimen | + + | Blood | + + + + + + + | Performing | Address | City/State/Zipcode | Phone Number | | Organization | | | | + + + + + | [facility] | [address] | [place] [address] | [phone] | + + + + + POC Glucose (04/11/2019 9:20 PM PST) + + + + + + | Component | Value | Ref Range | Performed | Pathologist | | | | | At | Signature | + + + + + + | Glucose, | 199 (H)Comment: Testing | 65 - 99 mg/dL | [facility] | | | POC | performed at [facility];[address] | | LABORATORY | | | | [address];[place] | | | | | | [address] | | | | + + + + + + + + | Specimen | + + | | + + + + + + + | Performing | Address | City/State/Zipcode | Phone Number | | Organization | | | | + + + + + | [facility] | [address] | [place] [address] | [phone] | + + + + + POC [...] | | | POC | performed at [facility];[address] | | LABORATORY | | | | [address];[place], [place] | | | | | | [address] | | | | + + + + + + + + | Specimen | + + | | + + + + + + + | Performing | Address | City/State/Zipcode | Phone Number | | Organization | | | | + + + + + | [facility] | [address] | [place] [address] | [phone] | + + + + + POC [...] | | | POC | performed at [facility];[address] | | LABORATORY | | | | [address];[place], [place] | | | | | | [address] | | | | + + + + + + + + | Specimen | + + | | + + + + + + + | Performing | Address | City/State/Zipcode | Phone Number | | Organization | | | | + + + + + | [facility] | [address] | [place] [address] | [phone] | + + + + + IR [...] | self-expanding stent SURGEON: Simba Cheng MD ESOL TEACHER: None ANESTHESIA: | | | Moderate sedation [...] | | identified and brought to the Vegetable Farmworker. The patient was placed supine | | [...] sized to a 4 | | | Mexican sheath. A Omni flush catheter was then [...] inserted over the catheter and the 4 Mexican sheath was | | | removed. A 7 Mexican destination sheath was then inserted over the [...] using a | | | Glidewire and [place] catheter. A 0.009 wire was then passed [...] crossed using a | | |Glidewire and [place] catheter. A 0.009 wire was then passed [...] Testing | 65 - 99 mg/dL | [facility] | | | POC | performed at [facility];[address] | | LABORATORY | | | | [address];[place] | | | | | | [address] | | | | + + + + + + + + | Specimen | + + | | + + + + + + + | Performing | Address | City/State/Zipcode | Phone Number | | Organization | | | | + + + + + | [facility] | [address] | [place] [address] | [phone] | + + + + + B Type Natriuretic Peptide (04/11/2019 5:48 AM PST) + + + + + + | Component | Value | Ref Range | Performed | Pathologist | | | | | At | Signature | + + + + + + | BNP | 220.45 (H)Comment: | 0 - 100 pg/mL | [facility] | | | | Testing performed at | | LABORATORY | | | | [facility];[address] | | [address];[place] [address] | | | | + + + + + + + + | Specimen | + + | Blood | + + + + + + + | Performing | Address | City/State/Zipcode | Phone Number | | Organization | | | | + + + + + | [facility] | [address] | [place] [address] | [phone] | + + + + + Basic [...] | >60Comment: GFR <60: | >60 | [facility] | | | GFR | CHRONIC [...] | | | | | | MDRD IDTX traceable | | | | | | equation.Testing | | | | | | performed at [facility], [address] | | | | | [facility], | | | | | | [place] [address] | | | | + + + + + + + + | Specimen | + + | Blood | + + + + + + + | Performing | Address | City/State/Zipcode | Phone Number | | Organization | | | | + + + + + | [facility] | [address] | [place] [address] | [phone] | + + + + + CBC [...] | | | | | | at [facility], [address] | | | | | [address], | | | | | | [place] [address] | | | | | |Testing performed at [facility], [address] [place] [address] | | | | | | | | | | + + +---- + + + + + | Specimen | + + | Blood | + + + + + + + | Performing | Address | City/State/Zipcode | Phone Number | | Organization | | | | + + + + + | [facility] | [address] | [place] [address] | [phone] | + + + + + POC Glucose (04/10/2019 9:22 PM PST) + + + + + + | Component | Value | Ref Range | Performed | Pathologist | | | | | At | Signature | + + + + + + | Glucose, | 127 (H)Comment: Testing | 65 - 99 mg/dL | [facility] | | | POC | performed at [facility] [place] | [facility]ATORY | | | | [place] [address];[place] | | | | | | [address] | | | | + + + + + + + + | Specimen | + + | | + + + + + + + | Performing | Address | City/State/Zipcode | Phone Number | | Organization | | | | + + + + + | [facility] | [address] | [place] [address] | [phone] | + + + + + POC [...] | | | POC | performed at [facility];[address] | | LABORATORY | | | | [address];[place] | | | | | | [address] | | | | + + + + + + + + | Specimen | + + | | + + + + + + + | Performing | Address | City/State/Zipcode | Phone Number | | Organization | | | | + + + + + | [facility] | [address] | [place] [address] | [phone] | + + + + + [place] [...] | | | POC | performed at [facility];[address] | | LABORATORY | | | | [address];[place] | | | | | | [address] | | | | + + + + + + + + | Specimen | + + | | + + + + + + + | Performing | Address | City/State/Zipcode | Phone Number | | Organization | | | | + + + + + | [facility] | [address] | [place] [address] | [phone] | + + + + + CBC [...] [facility] | | | | performed at [facility], [address] | | LABORATORY | | | | [address], | | | | | | [place] [address] | | | | + + + + + + + + | Specimen | + + | Blood | + + + + + + + | Performing | Address | City/State/Zipcode | Phone Number | | Organization | | | | + + + + + | [facility] | [address] | [place] [address] | [phone] | + + + + + POC [...] | | | POC | performed at [facility];[address] | | LABORATORY | | | | [address];[place] | | | | | | [address] | | | | + + + + + + + + | Specimen | + + | | + + + + + + + | Performing | Address | City/State/Zipcode | Phone Number | | Organization | | | | + + + + + | [facility] | [address] | [place] [address] | [phone] | + + + + + POC Glucose (04/09/2019 5:06 PM PST) + + + + + + | Component | Value | Ref Range | Performed | Pathologist | | | | | At | Signature | + + + + + + | Glucose, | 169 (H)Comment: Testing | 65 - 99 mg/dL | [facility] | | | POC | performed at [facility];[address] | | LABORATORY | | | | [address];[place] | | | | | | [address] | | | | + + + + + + + + | Specimen | + + | | + + + + + + + | Performing | Address | City/State/Zipcode | Phone Number | | Organization | | | | + + + + + | [facility] | [address] | [place] [address] | [phone] | + + + + + POC [...] | | | POC | performed at [facility];[address] | | LABORATORY | | | | [address];[place] | | | | | | [address] | | | | + + + + + + + + | Specimen | + + | | + + + + + + + | Performing | Address | City/State/Zipcode | Phone Number | | Organization | | | | + + + + + | [facility] | [address] | [place] [address] | [phone] | + + + + + XR [...] | | | Urine | performed at [facility], [address] | | LABORATORY | | | | [address], | | | | | | [place] [address] | | | | + + + + + + + + | Specimen | + + | | + + + + + + + | Performing | Address | City/State/Zipcode | Phone Number | | Organization | | | | + + + + + | [facility] | [address] | [place] [address] | [phone] | + + + + + Urinalysis, [...] - 1.030 | [facility] | | | [place], | | | LABORATORY | | | [...] | + + + + + | [facility] | [address] | [place] [address] | [phone] | + + + + + Sedimentation Rate (04/09/2019 6:16 AM PST) + + + + + + | Component | Value | Ref Range | Performed | Pathologist | | | | | At | Signature | + + + + + + | ESR | 91 (H)Comment: Testing | 0 - 20 mm/Hr | [facility] | | | | performed at [facility], [address] | | LABORATORY | | | | [address], | | | | | | [place] [address] | | | | + + + + + + + + | Specimen | + + | Blood | + + + + + + + | Performing | Address | City/State/Zipcode | Phone Number | | Organization | | | | + + + + + | [facility] | [address] | [place] [address] | [phone] | + + + + + CBC [...] [facility] | | | | performed at [facility], [address] | | LABORATORY | | | | [address], | | | | | | [place] [address] | | | | + + + + + + + + | Specimen | + + | Blood | + + + + + + + | Performing | Address | City/State/Zipcode | Phone Number | | Organization | | | | + + + + + | [facility] | [address] | [place] [address] | [phone] | + + + + + Comprehensive [...] | | | | | | MDRD IDTX traceable | | | | | | equation.Testing | | | | | | performed at [facility], [address] | | | | | | [facility], | | | | | | [place] [address] | | | | + + + + + + + + | Specimen | + + | Blood | + + + + + + + | Performing | Address | City/State/Zipcode | Phone Number | | Organization | | | | + + + + + | [facility] | [address] | [place] [address] | [phone] | + + + + + POC Glucose (04/08/2019 10:09 PM PST) + + + + + + | Component | Value | Ref Range | Performed | Pathologist | | | | | At | Signature | + + + + + + | Glucose, | 168 (H)Comment: Testing | 65 - 99 mg/dL | [facility] | | | POC | performed at [facility];[address] | | LABORATORY | | | | [address];[place] | | | | | | [address] | | | | + + + + + + + + | Specimen | + + | | + + + + + + + | Performing | Address | City/State/Zipcode | Phone Number | | Organization | | | | + + + + + | [facility] | [address] | [place] [address] | [phone] | + + + + + Fecal Hemoglobin (04/08/2019 7:27 PM PST) + + + + + + | Component | Value | Ref Range | Performed | Pathologist | | | | | At | Signature | + + + + + + | FECAL | NEGATIVEComment: Testing | NEG | [facility] | | | OCCULT BLD | performed at [facility];[address] | | LABORATORY | | | | [address];[place], [place] | | | | | | [address] | | | | + + + + + + + + | Specimen | + + | Stool - Stool | | specimen (specimen) | + + + + + + + | Performing | Address | City/State/Zipcode | Phone Number | | Organization | | | | + + + + + | [facility] | [address] | [place] [address] | [phone] | + + + + + POC [...] | | | POC | performed at [facility];[address] | | LABORATORY | | | | [address];[place] | | | | | | [address] | | | | + + + + + + + + | Specimen | + + | | + + + + + + + | Performing | Address | City/State/Zipcode | Phone Number | | Organization | | | | + + + + + | [facility] | [address] | [place] [address] | [phone] | + + + + + XR [...] | | | POC | performed at [facility];[address] | | LABORATORY | | | | [address];[place] | | | | | | [address] | | | | + + + + + + + + | Specimen | + + | | + + + + + + + | Performing | Address | City/State/Zipcode | Phone Number | | Organization | | | | + + + + + | [facility] | [address] | [place] [address] | [phone] | + + + + + XR [...] Testing | 65 - 99 mg/dL | [facility] | | | POC | performed at [facility];[address] | | LABORATORY | | | | [address];[place] | | | | | | [address] | | | | + + + + + + + + | Specimen | + + | | + + + + + + + | Performing | Address | City/State/Zipcode | Phone Number | | Organization | | | | + + + + + | [facility] | [address] | [place] [address] | [phone] | + + + + + B [...] [address] | | | | | | [address];[place] [address] | | | | + + + + + + + + | Specimen | + + | Blood | + + + + + + + | Performing | Address | City/State/Zipcode | Phone Number | | Organization | | | | + + + + + | [facility] | [address] | [place] [address] | [phone] | + + + + + CBC [...] | | | | | [place] [address] | | | | + + + + + + + + | Specimen | + + | Blood | + + + + + + + | Performing | Address | City/State/Zipcode | Phone Number | | Organization | | | | + + + + + | [facility] | [address] | [place] [address] | [phone] | + + + + + Comprehensive [...] | | | | | performed at [facility], [address] | | | | | | [facility], | | | | | | [place] [address] | | | | + + + + + + + + | Specimen | + + | Blood | + + + + + + + | Performing | Address | City/State/Zipcode | Phone Number | | Organization | | | | + + + + + | [facility] | [address] | [place] [address] | [phone] | + + + + + POC [...] | | | POC | performed at [facility];[address] | | LABORATORY | | | | [address];[place] | | | | | | [address] | | | | + + + + + + + + | Specimen | + + | | + + + + + + + | Performing | Address | City/State/Zipcode | Phone Number | | Organization | | | | + + + + + | [facility] | [address] [facility] | [place] [address] | [phone] | + + + + + POC [...] | | | POC | performed at [facility];[address] | | LABORATORY | | | | [address];[place] | | | | | | [address] | | | | + + + + + + + + | Specimen | + + | | + + + + + + + | Performing | Address | City/State/Zipcode | Phone Number | | Organization | | | | + + + + + | [facility] | [address] | [place] [address] | [phone] | + + + + + POC Glucose (04/07/2019 12:40 PM PST) + + + + + + | Component | Value | Ref Range | Performed | Pathologist | | | | | At | Signature | + + + + + + | Glucose, | 252 (H)Comment: Testing | 65 - 99 mg/dL | [facility] | | | POC | performed at [facility];[address] | | LABORATORY | | | | [address];[place] | | | | | | [address] | | | | + + + + + + + + | Specimen | + + | | + + + + + + + | Performing | Address | City/State/Zipcode | Phone Number | | Organization | | | | + + + + + | [facility] | [address] | [place] [address] | [phone] | + + + + + XR [...] | | | POC | performed at [facility];[address] | | LABORATORY | | | | [address];[place] | | | | | | [address] | | | | + + + + + + + + | Specimen | + + | | + + + + + + + | Performing | Address | City/State/Zipcode | Phone Number | | Organization | | | | + + + + + | [facility] | [address] | [place] [address] | [phone] | + + + + + Magnesium (04/07/2019 5:02 AM PST) + + + + + + | Component | Value | Ref Range | Performed | Pathologist | | | | | At | Signature | + + + + + + | Magnesium | 2.1Comment: Testing | 1.7 - 2.4 mg/dL | [facility] | | | | performed at [facility], [address] | | LABORATORY | | | | [address], | | | | | | [place] [address] | | | | + + + + + + + + | Specimen | + + | Blood | + + + + + + + | Performing | Address | City/State/Zipcode | Phone Number | | Organization | | | | + + + + + | [facility] | [address] | [place] [address] | [phone] | + + + + + CBC [...] [facility] | | | | performed at [facility];[address] | | LABORATORY | | | | [address];[place], [place] | | | | | | [address] | | | | + + + + + + + + | Specimen | + + | Blood | + + + + + + + | Performing | Address | City/State/Zipcode | Phone Number | | Organization | | | | + + + + + | [facility] | [address] | [place] [address] | [phone] | + + + + + Comprehensive [...] | >60Comment: GFR <60: | >60 | [facility] | | | GFR | CHRONIC [...] | | | | | | MDRD IDTX traceable | | | | | | equation.Testing | | | | | | performed at [facility], [address] | | | | | | [facility], | | | | | | [place] [address] | | | | + + + + + + + + | Specimen | + + | Blood | + + + + + + + | Performing | Address | City/State/Zipcode | Phone Number | | Organization | | | | + + + + + | [facility] | [address] | [place] [address] | [phone] | + + + + + Iron, Total (04/07/2019 5:02 AM PST) + + + + + + | Component | Value | Ref Range | Performed | Pathologist | | | | | At | Signature | + + + + + + | Iron | 23 (L)Comment: Testing | 45 - 190 ug/dL | [facility] | | | | performed at [facility], [address] | | LABORATORY | | | | [address], | | | | | | [place] [address] | | | | + + + + + + + + | Specimen | + + | Blood | + + + + + + + | Performing | Address | City/State/Zipcode | Phone Number | | Organization | | | | + + + + + | [facility] | [address] | [place] [address] | [phone] | + + + + + POC [...] | | | POC | performed at [facility];[address] | | LABORATORY | | | | [address];[place] | | | | | | [address] | | | | + + + + + + + + | Specimen | + + | | + + + + + + + | Performing | Address | City/State/Zipcode | Phone Number | | Organization | | | | + + + + + | [facility] | [address] | [place] [address] | [phone] | + + + + + POC [...] | | | POC | performed at [facility];[address] | | LABORATORY | | | | [address];[place], [place] | | | | | | [address] | | | | + + + + + + + + | Specimen | + + | | + + + + + + + | Performing | Address | City/State/Zipcode | Phone Number | | Organization | | | | + + + + + | [facility] | [address] | [place] [address] | [phone] | + + + + + Culture, [...] | [facility] | | | Requests | [facility];[address] [facility] | | LABORATORY | | | | [address];[place] [address] | | | | + + + + + + | RESULT | 1+NORMAL SKIN CELSA | | [facility] | | | | ISOLATED | | LABORATORY | | | | | | | | + + + + + + | RESULT | NO FURTHER WORKUP | | [facility] | | | | | | LABORATORY | | + + + + + + | RESULT | Testing performed at | | [facility] | | | | TCL, [address] [facility] | | LABORATORY | | | | [place], [place] | | | | | | [address]Oxphwhv: Testing | | | | | | performed at [facility], [address] | | | | | [address] [place], [place] | | | | | | [address] | | | | + + + + + + + + | Specimen | + + | Body Fluid - Entire | | heel (body | | structure) | + + + + + + + | Performing | Address | City/State/Zipcode | Phone Number | | Organization | | | | + + + + + | [facility] | [address] | [place] [address] | [phone] | + + + + + Culture, [...] | [facility] | | | Requests | [facility];[address] [place] [address] | | LABORATORY | | | | Blvd;[place] [address] | | | | + + + [...] Comment: Testing | | | performed at [facility], | | | [address], | | | [place] [address] | +---+ + + + + + + | Performing | Address | City/State/Zipcode | Phone Number | | Organization | | | | + + + + + | [facility] | [address] | [place] [address] | [phone] | + + + + + Ferritin (04/06/2019 2:30 PM PST) + + + + + + | Component | Value | Ref Range | Performed | Pathologist | | | | | At | Signature | + + + + + + | Ferritin | 62Comment: Testing | 11 - 450 ng/mL | [facility] | | | | performed at [facility], [address] | | LABORATORY | | | | [address], | | | | | | [place] [address] | | | | + + + + + + + + | Specimen | + + | Blood | + + + + + + + | Performing | Address | City/State/Zipcode | Phone Number | | Organization | | | | + + + + + | [facility] | [address] | [place] [address] | [phone] | + + + + + Vitamin [...] [facility] | | | | performed at [facility], [address] | | LABORATORY | | | | [address], | | | | | | [place] [address] | | | | + + + + + + + + | Specimen | + + | Blood | + + + + + + + | Performing | Address | City/State/Zipcode | Phone Number | | Organization | | | | + + + + + | [facility] | [address] | [place] [address] | [phone] | + + + + + Troponin [...] at | | | | | | [facility];[address] [facility] | | | | | | [facility];[place] [address] | | | | + + + + + + + + | Specimen | + + | Blood | + + + + + + + | Performing | Address | City/State/Zipcode | Phone Number | | Organization | | | | + + + + + | [facility] | [address] | [place] [address] | [phone] | + + + + + POC Glucose (04/06/2019 11:28 AM PST) + + + + + + | Component | Value | Ref Range | Performed | Pathologist | | | | | At | Signature | + + + + + + | Glucose, | 175 (H)Comment: Testing | 65 - 99 mg/dL | [facility] | | | POC | performed at [facility];[address] | | LABORATORY | | | | [address];[place] | | | | | | [address] | | | | + + + + + + + + | Specimen | + + | | + + + + + + + | Performing | Address | City/State/Zipcode | Phone Number | | Organization | | | | + + + + + | [facility] | [address] | [place] [address] | [phone] | + + + + + VAS [...] | | | POC | performed at [facility];[address] | | LABORATORY | | | | [address];[place] | | | | | | [address] | | | | + + + + + + + + | Specimen | + + | | + + + + + + + | Performing | Address | City/State/Zipcode | Phone Number | | Organization | | | | + + + + + | [facility] | [address] | [place] [address] | [phone] | + + + + + Troponin I (04/06/2019 8:31 AM PST) + + + + + + | Component | Value | Ref Range | Performed | Pathologist | | | | | At | Signature | + + + + + + | Troponin I | 0.19 (H)Comment: 0.04 | 0.00 - 0.04 | [facility] | | | | ng/mL or [...] at | | | | | | [facility];[address] [place] [address] | | | | | | [facility];[place] [address] | | | | + + + + + + + + | Specimen | + + | Blood | + + + + + + + | Performing | Address | City/State/Zipcode | Phone Number | | Organization | | | | + + + + + | [facility] | [address] | [place] [address] | [phone] | + + + + + XR [...] Special | Testing performed at | | [facility] | | | Requests | [facility];[address] | | LABORATORY | | | | [address];[place] [address] | | | | + + + + + + | RESULT | NO GROWTH 6 DAYS | | [facility] | | | | | | LABORATORY | | + + + + + + | RESULT | Testing performed at | | [facility] | | | | TCL, [address] [facility] | | LABORATORY | | | | [place], [place] | | | | | | [address]Ndgibgy: Testing | | | | | | performed at [facility], [address] | | | | | [address] [place], [place], [place] | | | | | | [address] | | | | + + + [...] [facility] | [address] | [place] [address] | [phone] | + + + + + Culture, [...] Special | Testing performed at | | [facility] | | | Requests | [facility];[address] | | LABORATORY | | | | [address];[place] [address] | | | | + + + + + + | RESULT | NO GROWTH 6 DAYS | | [facility] | | | | | | LABORATORY | | + + + + + + | RESULT | Testing performed at | | [facility] | | | | TCL, [address] [facility] | | LABORATORY | | | | [place], [place] | | | | | | [address]Pdpdfbc: Testing | | | | | | performed at [facility], [facility] | | | | | | [address], [place] | | | | | | [address] | | | | + + + + + + + + | Specimen | + + | Blood - Peripheral | | blood specimen | | (specimen) | + + + + + + + | Performing | Address | City/State/Zipcode | Phone Number | | Organization | | | | + + + + + | [facility] | [address] | [place] [address] | [phone] | + + + + + B [...] | | LABORATORY | | | | [facility];[address] | | | | | | [address];[place] [address] | | | | + + + + + + + + | Specimen | + + | | + + + + + + + | Performing | Address | City/State/Zipcode | Phone Number | | Organization | | | | + + + + + | [facility] | [address] | [place] [address] | [phone] | + + + + + Lipid [...] | 13Comment: Testing | <100 mg/dL | [facility] | | | Calculated | performed at [facility], [address] | | LABORATORY | | | | [address], | | | | | | [place] [address] | | | | + + + + + + + + | Specimen | + + | Blood | + + + + + + + | Performing | Address | City/State/Zipcode | Phone Number | | Organization | | | | + + + + + | [facility] | [address] | [place] [address] | [phone] | + + + + + Hemoglobin A1C (04/06/2019 2:48 AM PST) + + + + + + | Component | Value | Ref Range | Performed | Pathologist | | | | | At | Signature | + + + + + + | Hemoglobin | 7.8 (H)Comment: HbA1c | 4.0 - 6.0 % | [facility] | | | A1c | method [...] | 177 (H)Comment: | <154 mg/dL | [facility] | | | Average | Estimated Average | | LABORATORY | | | Glucose | Glucose calculated from | | | | | | hemoglobin A1c by use of | | | | | | the ADArecommended | | | | | | formula.Testing | | | | | | performed at [facility], [address] | | | | | | [address], | | | | | | [place] [address] | | | | + + + + + + + + | Specimen | + + | Blood | + + + + + + + | Performing | Address | City/State/Zipcode | Phone Number | | Organization | | | | + + + + + | [facility] | [address] | [place] [address] | [phone] | + + + + + Magnesium (04/06/2019 2:48 AM PST) + + + + + + | Component | Value | Ref Range | Performed | Pathologist | | | | | At | Signature | + + + + + + | Magnesium | 1.4 (L)Comment: Testing | 1.7 - 2.4 mg/dL | [facility] | | | | performed at [facility], [address] | | LABORATORY | | | | [address], | | | | | | [place] [address] | | | | + + + + + + + + | Specimen | + + | Blood | + + + + + + + | Performing | Address | City/State/Zipcode | Phone Number | | Organization | | | | + + + + + | [facility] | [address] | [place] [address] | [phone] | + + + + + Comprehensive [...] | | | | | performed at [facility], [address] | | | | | | [facility], | | | | | | [place] [address] | | | | + + + + + + + + | Specimen | + + | Blood | + + + + + + + | Performing | Address | City/State/Zipcode | Phone Number | | Organization | | | | + + + + + | [facility] | [address] | [place] [address] | [phone] | + + + + + CBC [...] | | | | | | at [facility];[address];[place] [address] | | | | | |[address] [facility] | | | | | |Testing performed at [facility];[address];[place] [address] | | | | | | | | | | + + + + + + + + | Specimen | + + | Blood | + + + + + + + | Performing | Address | City/State/Zipcode | Phone Number | | Organization | | | | + + + + + | [facility] | [address] | [place] [address] | [phone] | + + + + + Ev [...] | | | | | performed at [facility];[address] | | | | | | [address];[place], [place] | | | | | | [address] | | | | + + + + + + + + | Specimen | + + | Blood | + + + + + + + | Performing | Address | City/State/Zipcode | Phone Number | | Organization | | | | + + + + + | [facility] | [address] | [place] [address] | [phone] | + + + + + PTT (04/06/2019 2:48 AM PST) + + + + + + | Component | Value | Ref Range | Performed | Pathologist | | | | | At | Signature | + + + + + + | PTT | 34 (H)Comment: Testing | 23 - 32 seconds | IDA | | | | performed at [facility];[address] | [address] | | | | [address];[place] | | | | | | [address] | | | | + + + + + + + + | Specimen | + + | Blood | + + + + + + + | Performing | Address | City/State/Zipcode | Phone Number | | Organization | | | | + + + + + | [facility] | [address] | [place] [address] | [phone] | + + + + + Troponin [...] at | | | | | | [facility];[address] [place] [address] | | | | | | [facility];[place] [address] | | | | + + + + + + + + | Specimen | + + | Blood | + + + + + + + | Performing | Address | City/State/Zipcode | Phone Number | | Organization | | | | + + + + + | [facility] | [address] | [place] [address] | [phone] | + + + + + documented [...] | | | | | dose on [facility] 04/12/19 at 2100 | | | [...]
--- OUTSIDE RECORDS SUMMARY | ~2019-08-08 | XMS | Encounter Summary ---
Demographics + + + | Address | [address] | | | [place] [address] | + + + | Home Phone [...] + | Jessica Shepard | ECON | [address] | | | | | [place] | | | | | [address] | | + + + + + [...] | +--------+ + + + + | 04/23/ | Telephone | [facility] | Dianna Hernandez, | Follow-up | | 2019 | | VASCULAR SURGERY | Home Health Nurse Licensed Practical | | | | | [address] | | | | | | [place] | | | | | | [address] | | | | | | [phone] | | | +--------+ + + + [...]
--- OUTSIDE RECORDS SUMMARY | ~2019-08-08 | XMS | Encounter Summary ---
Demographics + + + | Address | [address] | | | [place] [address] | + + + | Home Phone | | + + + | Preferred Language | Unknown | + + + | Marital Status | | + + + | Anabaptist Affiliation | 1076 | + + + [...] + | Jessica Shepard | ECON | [address] | | | | | [place] | | | | | [address] | | + + + + + | Bel Solis | ECON | Unknown | | + + + + + Care Team Providers + +------+ + | Care Lan Manager Name | Role | Phone | + +------+ + | Jamar Manuel MD | PCP | | + +------+ + Encounter Details +--------+ + + + + | Date | Type | Department | Care Team | Description | +--------+ + + + + | 11/24/ | Telephone | [facility] | [facility] | | | 2017 | | [facility] | | | | | | PHYSICAL THERAPY | | | | | | [address] | | | | | | [place] [address] | | | | | | [phone] | | | +--------+ + + + [...]
--- OUTSIDE RECORDS SUMMARY | ~2019-08-08 | XMS | Encounter Summary ---
Demographics + + + | Address | [address] | | | [place] [address] | + + + | Home Phone | | + + + | Preferred Language | Unknown | + + + | Marital Status | | + + + | Baptism Affiliation | 1076 | + + + | Race | Unknown | + + + | Ethnic Group | Unknown | + + + Author + + + | Author | [facility] | | | and [place] | + + + | Organization | [facility] | | | and [place] | + + + | Address | Unknown | + + + | Phone | Unavailable | + + + Support + + + + + | Name | Relationship | Address | Phone | + + + + + | Jessica Amezquita | ECON | [address] | | | | | [place] | | | | | [address] | | + + + + + | Bel Solis | ECON | Unknown | | + + + + + Care Team Providers + +------+ + | Care Mechanic/Welder Name | Role | Phone | + +------+ + PCP | Unavailable | + +------+ + Encounter Details +--------+ + + + + | Date | Type | Department | Care Team | Description | +--------+ + + + + | 04/21/ | Hospital | [facility] | Christina Da Silva | | | 2012 | Encounter | [facility] | MD [place] [address] | | | | | [place] [address] | [facility], | | | | | [place], [place] | [place] [address] | | | | | [address] | [phone] | | | | | [phone] | | | | | | | Cody Goodwin | | | | | | MD Evelia [address] | | | | | | [place], [place] | | | | | | [address] | | | | | | [phone] | | | | | | | [...] Performed At | + + + | [facility] | [facility] | | Department [address] [facility], [place] | [facility] | | [ rep [address]] [ rep [facility] | | st zip] Signed | - IMAGING | | | | | Patient Name: BIAREAGAN Physician: | | | BILL.[birth year] : 1945 Age: 67 Sex: M Unit #: [id number] | | | Exam Date: 04/21/12 Location: ER | | | Report #: [id number] Page: | | | %(RAD)RES..mtdd.print.filter("pg") of %(RAD) | | | RES..mtdd.print.filter("tpg") | | | | | | Accession Number: [id number] | | | ABDOMEN ONE VIEW 04/22/2012 [...] Transcribed Date/Time: | | | 04/22/2012 18:46 Vp Ancillary: | | | <<Signature on File>> | | | Rico | | | MD Jack04/23/12 0933 <Electronically signed by Rico Santiago MD> | | | Rico Santiago MD 04/22/12 1424 Vp Ancillary: Abhishek | | | Ytzvlgnwunipp29/02/13 1846 Cody Goodwin MD | | | | | + + + + + + + + | Performing | Address | City/State/[facility] | Phone Number | | Organization | | | | + + + + + | [facility] | [address] | [place], [place] | [phone] | | [facility] | | [address] | | | - IMAGING | | | | + + + + + CT Abdomen Pelvis w Contrast (04/22/2012 11:43 AM PST) + + | Specimen | + + | | + + + + + | Narrative | Performed At | + + + | [facility] | [facility] | | Department [address], [place] | [facility] | | [ rep [address]] [ rep ct [facility] | | st zip] Signed | - IMAGING | | | | | Patient Name: REAGAN AMEZQUITA Physician: | | | BILL. : 1945 Age: 67 Sex: M Unit #: [id number] | | | Exam Date: 04/21/12 Location: ER | | | Report #: [id number] Page: | | | %(RAD)RES..mtdd.print.filter("pg") of %(RAD) | | | RES..mtdd.print.filter("tpg") | | | | | | Accession Number: [id number] | | | CT SCAN OF THE [...] | | PRELIMINARY REPORT WAS SENT BY registracija vozila AT 10:02 P.M. ON | | | 04/21/12. Dictated Date/Time: 04/22/2012 11:43 | | | Transcribed Date/Time: 04/22/2012 15:29 Vp Ancillary: | | | <<Signature on File>> | | | Rico | | | MD Jack04/23/12 0933 <Electronically signed by Rico Santiago MD> | | | Rico Santiago MD 04/22/12 1143 Vp Ancillary: Abhishek | | | Luzezlcgfmfmi31/02/13 1529 Cody Goodwin MD | | | | | + + + + + + + + | Performing | Address | City/State/Zipcode | Phone Number | | Organization | | | | + + + + + | [facility] | [address] | [place] | [phone] | | [facility] | | [address] | | | - IMAGING | | [...] + | [facility] | [address] | [place] | [phone] | | [facility] | | [address] | | | - LABORATORY | | | | + + + + + | [facility] | [address] | [place], [place] | | | [facility] | | [address] | | | - LABORATORY | | [...] + | [facility] | [address] | [place] | [phone] | | [facility] | | [facility] | | | - LABORATORY | | | | + + + + + | [facility] | [address] | [place], [place] | | | [facility] | | [address] [place] [address] | | | - LABORATORY | | | | + + + + + documented in this encounter Visit Diagnoses Not on filedocumented in this encounter
--- OUTSIDE RECORDS SUMMARY | ~2019-08-08 | XMS | Encounter Summary ---
Demographics + + + | Address | [address] | | | [place] [address] | + + + | Home Phone | | + + + | Preferred Language | Unknown | + + + | Marital Status | | + + + | Druze Affiliation | 1076 | + + + | Race | Unknown | + + + | Ethnic Group | Unknown | + + + Author + + + | Author | [facility] | | | and [place] | + + + | Organization | [facility] | | | and [place] | + + + | Address | Unknown | + + + | Phone | Unavailable | + + + Support + + + + + | Name | Relationship | Address | Phone | + + + + + | Jessica Shepard | ECON | [address] | | | | | [place] | | | | | [address] | | + + + + + | Bel Solis | ECON | Unknown | | + + + + + Care Team Providers + +------+ + | Care Shell Trim Operator Name | Role | Phone | + +------+ + | Dian Lr NP | PCP | | + +------+ + Encounter Details +--------+ + + + + | Date | Type | Department | Care Team | Description | +--------+ + + + + | 07/21/ | Orders Only | [facility] | Conversion | | | 2019 | | INFECTIOUS DISEASE | Transaction, | | | | | [address] | Provider Unknown | | | | | [place], [place] | | | | | | [address] | (Fax) | | | | | [phone] | | | +--------+ + + + [...]
--- OUTSIDE RECORDS SUMMARY | ~2019-08-08 | XMS | Encounter Summary ---
Demographics + + + | Address | [address] | | | [place] [address] | + + + | Home Phone | | + + + | Preferred Language | Unknown | + + + | Marital Status | | + + + | Presybeterian Affiliation | [id number] | + + + | Race | Unknown | + + + | Ethnic Group | Unknown | + + + Author + + + | Author | [facility] | | | and [place] | + + + | Organization | [facility] | | | and [place] | + + + | Address | Unknown | + + + | Phone | Unavailable | + + + Support + + + + + | Name | Relationship | Address | Phone | + + + + + | Jessica Shepard | ECON | [address] | | | | | [place] | | | | | [address] | | + + + + + | Bel Solis | ECON | Unknown | | + + + + + Care Team Providers + +------+ + | Care Digital Media Buyer Name | Role | Phone | + [...] + + | 11/19/ | Hospital | [facility] | Jurgen Casiano | [place], initial | | 2018 - | Encounter | [facility] | MD Shayne [address] | encounter (Primary | | | | [address] [place] | [address] [place] | Dx); Fever, | | 11/25/ | | [place] [address] | [place] [address] | unspecified fever | | 2017 | | [phone] | [phone] | cause; Pneumonia due | | | | | | to infectious | | | | | Gray Perea MD | organism, | | | | | [address] | unspecified | | | | | [place], [place] | laterality, | | | | | [id number] | unspecified part of | | | | | | lung; Sepsis, due to | | | | | Mil Sandoval MD | unspecified | | | | | [address] | organism (HCC); | | | | | [place] | Insulin dependent | | | | | [address] | diabetes mellitus | | | | | | ([facility]); Other chronic | | | | | | osteomyelitis of | | | | | | right foot ([facility]); | | | | | | Peripheral vascular | | | | | | disease ([facility]) | +--------+ + + + + Social [...] other anesthesia was used during the case. [facility] t lower extremity was then [...] -PT/OT ordered Code Status: Full Code Disposition: [facility] Discharge Condition: Stable, very deconditioned and weak at baseline Pleasant, no distress RRR, no m/r/g CTA bilaterally Soft, obese, NT Ext WWP, right foot ulcer with deep wound, slight purulent drainage Contact information for after-discharge care Placement Destination [facility] . Specialty: [facility] Facility Contact information: [address] [facility] [address] Discharge Medications New Medications Details acetaminophen [...] signed by: Justin Reyna MD, 11/25/2017 13:01 [facility] documented in this encounter Medications at Time [...] might be different f rom the original. Located within [facility] PMG Hospitalist Progress Note Reagan Shepard is [...] pantoprazole Mechanical fall -PT/OT ordered Disposition : [facility] as soon as 11/25 Prophylaxis : [...] as outlined above. Justin Reyna 11/24/2017 18:16 [facility] Sang Duff MD - 11/24/2017 1:59 PM PDTWe are evaluating the patient for further medical rehabilitatio n services. He does not qualify per CMS guidelines for full inpatient rehab . I recommend he be transferred to SNF for further skilled therapies once he is cleared acute ly. Justin Rodriguez MD - 11/23/2017 2:24 PM PDT Located within [facility]G Hospitalist Progress Note Reagan Shepard is [...] as outlined above. Justin Reyna 11/23/2017 14:24 [facility] orjuno, Simone VossARIM - 11/23/2017 1:58 PM PDT Foot & Ankle Surgery Progress Note Simone Aceves DPM Reagan Shepard Age/Gender 72 y.o. male Location [facility] MEDICAL Attending Mil Sandoval MD Hosp Day [...] Value Units Date/Time Culture, Wound, Smear, w/Anaerobe [[id number]] Collected: 11/21/17 1208 Order Status: Sent Lab Status: In process Updated: 11/21/17 1250 Specimen: Tissue from Toe, Fifth/Small, Right Narrative: The following orders were created for panel order Culture, Wound, Smear, w/Anaerobe. Procedure Abnormality Status --------- ------ Culture, Wound, Smear[[id number]] In process Culture, Anaerobic[[id number]] In process Please view results for these tests on the individual orders. Culture, Wound, Smear [[id number]] Collected: 11/21/171207 Order Status: Sent Lab Status: In process Updated: 11/21/17 1250 Specimen: Tissue from Toe, Fifth/Small, Right Culture, Anaerobic [[id number]] Collected: 11/21/171207 Order Status: Sent Lab Status: [...] Simone Aceves DPM 13:58; 11/23/2017 Irasema Dominguez, Collar Stay Fuser Tender - 11/23/2017 9:43 AM PDT PHARMACY SERVICES: [...] strength, and directions X Pharmacy list names: [facility] X [employer] insurance reported information X Care [...] Prior to Admission Sig: Patient taking differently SPICE FUMIGATOR as: Hydrocodone-acetaminophen 10-325 mg Take one tablet by mouth four times daily as needed fo r pain Patient taking 1 tablet three times daily as a scheduled dose Best possible SPICE FUMIGATOR medication list after pharmacy review: PT REPORTED [...] performed and electronically signed by Blanquita Bertrand, Visual Basic Developer 11/22/2017 8:38 Electronically signed by: Irasema Moyer, Collar Stay Fuser Tender 11/23/2017 9:43 Justin Rodriguez MD - 11/22/2017 5:22 PM PDT Located within [facility] PMG Hospitalist Progress Note Reagan Shepard is [...] as outlined above. Justin Reyna 11/22/2017 17:40 [facility] anielle Guillermo, Life Skills Trainer - 11/22/2017 2:13 PM PDTFormatting of this [...] cerebral hemisphere; Diabetes mellitus (HCC); Stroke (cerebrum) ([facility]); an d TBI (traumatic brain injury) ([facility]). No risk factors for MDR organisms. HPI: [...] Value Units Date/Time Culture, Wound, Smear, w/Anaerobe [[id number]] Collected: 11/21/17 1208 Order Status: Sent Lab Status: In process Updated: 11/21/17 1250 Specimen: Tissue from Toe, Fifth/Small, Right Narrative: The following orders were created for panel order Culture, Wound, Smear, w/Anaerobe. Procedure Abnormality Status --------- ------ Culture, Wound, Smear[[id number]] Preliminary result Culture, Anaerobic[[id number]] In process Please view results for these tests on the individual orders. Culture, Wound, Smear [[id number]] Collected: 11/21/17 1208 Order Status: Completed Lab Status: Preliminary result Updated: 11/22/17 1021 Specimen: Tissue from Toe, Fifth/Small, Right Culture 2+ Lactose Fermenting Gram Negative Bacilli Comment: Identification and susceptibility to follow. Gram Stain Result 2+ White Blood Cells 1+ Epithelial cells 2+ Gram negative rods Culture, Anaerobic [[id number]] Collected: 11/21/17 1208 Order Status: Sent Lab Status: In process Updated: 11/21/17 1250 Specimen: Tissue from Toe, Fifth/Small, Right Respiratory Virus Panel, NAAT [[id number]] Collected: 11/20/17 1257 Order Status: Completed Lab [...] pneumoniae DNA Not Detected Narrative: Performed at: [address] [place] [id number] Owner/Operator: Jurgen Costa MD, Phone: [phone] Culture, Wound, Smear [[id number]] (Susceptibility) Collected: 11/20/17 0825 Order Status: Completed [...] Sulfamethoxazole <=20 ug/mL Sensitive Culture, Wound, Smear [[id number]] (Susceptibility) Collected: 11/19/172030 Order Status: Completed Lab [...] no longer reported. Culture, Respiratory, Lower, Smear [[id number]] Order Status: Sent Lab Status: No result Specimen: Body Fluid from Sputum, Expectorated Culture, Wound, Smear [[id number]] Order Status: Canceled Lab Status: No result Specimen: Tissue from Leg, Left Culture, Blood [[id number]] (Normal) Collected: 11/19/17 1537 Order Status: Completed Lab Status: Preliminary result Updated: 11/20/17 0351 Specimen: Blood from Peripheral Blood Culture No growth: Monitored continually by instrument for 5 days Culture, Blood [[id number]] (Normal) Collected: 11/19/17 1506 Order Status: Completed Lab Status: Preliminary result Updated: 11/20/17 0321 Specimen: Blood from Peripheral Blood Culture No growth: Monitored continually by instrument for 5 days Culture, Urine [[id number]] Collected: 11/19/17 1416 Order Status: Completed Lab [...] Monitoring Protocol Electronically signed by: Danielle Guillermo, Life Skills Trainer 11/22/2017 14:13 Associated attestation - Luther Hampton [...] Simone Shepard Age/Gender 72 y.o. male Location [facility] MEDICAL Attending Mil Sandoval MD Hosp Day [...] Value Units Date/Time Culture, Wound, Smear, w/Anaerobe [[id number]] Collected: 11/21/171207 Order Status: Sent Lab Status: In process Updated: 11/21/17 1250 Specimen: Tissue from Toe, Fifth/Small, Right Narrative: The following orders were created for panel order Culture, Wound, Smear, w/Anaerobe. Procedure Abnormality Status --------- ------ Culture, Wound, Smear[[id number]] In process Culture, Anaerobic[[id number]] In process Please view results for these tests on the individual orders. Culture, Wound, Smear [[id number]] Collected: 11/21/171207 Order Status: Sent Lab Status: In process Updated: 11/21/17 1250 Specimen: Tissue from Toe, Fifth/Small, Right Culture, Anaerobic [[id number]] Collected: 09/03/18 1208 Order Status: Sent Lab [...] cerebral hemisphere; Diabetes mellitus (HCC); Stroke (cerebrum) ([facility]); an d TBI (traumatic brain injury) ([facility]). . No risk factors for MDR organisms. [...] Value Units Date/Time Culture, Wound, Smear, w/Anaerobe [[id number]] Collected: 11/21/17 1208 Order Status: Sent Lab Status: In process Updated: 11/21/17 1250 Specimen: Tissue from Toe, Fifth/Small, Right Narrative: The following orders were created for panel order Culture, Wound, Smear, w/Anaerobe. Procedure Abnormality Status --------- ------ Culture, Wound, Smear[[id number]] In process Culture, Anaerobic[[id number]] In process Please view results for these tests on the individual orders. Culture, Wound, Smear [[id number]] Collected: 11/21/17 1208 Order Status: Sent Lab Status: In process Updated: 11/21/17 1250 Specimen: Tissue from Toe, Fifth/Small, Right Culture, Anaerobic [[id number]] Collected: 11/21/17 1208 Order Status: Sent Lab Status: In process Updated: 11/21/17 1250 Specimen: Tissue from Toe, Fifth/Small, Right Respiratory Virus Panel, NAAT [[id number]] Collected: 11/20/17 1257 Order Status: Sent Lab Status: In process Updated: 11/20/17 1302 Specimen: Tissue from Nasopharynx Culture, Wound, Smear [[id number]] Collected: 11/20/17 0825 Order Status: Completed Lab Status: Preliminary result Updated: 11/21/17 0739 Specimen: Tissue from Foot, Right Culture 1+ Gram Negative Jayesh, NOT Pseudomonas Comment: Identification and susceptibility to follow. 1+ Gram Positive Cocci Comment: Isolating for additional information. Gram Stain Result 1+ White Blood Cells No organisms seen Culture, Wound, Smear [[id number]] (Susceptibility) Collected: 11/19/17 203 Order Status: Completed [...] <=20 ug/mL Sensitive Culture, Respiratory, Lower, Smear [[id number]] Order Status: Sent Lab Status: No result Specimen: Body Fluid from Sputum, Expectorated Culture, Wound, Smear [[id number]] Order Status: Canceled Lab Status: No result Specimen: Tissue from Leg, Left Culture, Blood [[id number]] (Normal) Collected: 11/19/17 1537 Order Status: Completed Lab Status: Preliminary result Updated: 11/20/17 0351 Specimen: Blood from Peripheral Blood Culture No growth: Monitored continually by instrument for 5 days Culture, Blood [[id number]] (Normal) Collected: 11/19/17 1506 Order Status: Completed Lab Status: Preliminary result Updated: 11/20/17 0321 Specimen: Blood from Peripheral Blood Culture No growth: Monitored continually by instrument for 5 days Culture, Urine [[id number]] Collected: 11/19/17 1416 Order Status: Completed Lab [...] Hoff MD - 11/21/2017 11:05 AM PDT [place] HOSPITALIST PROGRESS NOTE Patient: Reagan Shepard : 1945: Age: 72 y.o. MedRec: [id number] Admission date: 11/19/2017 Hospital day # : [...] E' Septal Velocity 4.79 cm/s MV Deceleration [place] 336.24 cm/s2 MV Deceleration Time 332.96 msec [...] Value Units Date/Time Respiratory Virus Panel, NAAT [[id number]] Collected: 11/20/17 1257 Order Status: Sent Lab Status: In process Updated: 11/20/17 1302 Specimen: Tissue from Nasopharynx Culture, Wound, Smear [[id number]] Collected: 11/20/17 0825 Order Status: Completed Lab Status: Preliminary result Updated: 11/21/17 0739 Specimen: Tissue from Foot, Right Culture 1+ Gram Negative Jayesh, NOT Pseudomonas Comment: Identification and susceptibility to follow. 1+ Gram Positive Cocci Comment: Isolating for additional information. Gram Stain Result 1+ White Blood Cells No organisms seen Culture, Wound, Smear [[id number]] (Susceptibility) Collected: 11/19/172030 Order Status: Completed Lab [...] + Sulfamethoxazole <=20 ug/mL Sensitive Culture, Blood [[id number]] (Normal) Collected: 11/19/17 1537 Order Status: Completed Lab Status: Preliminary result Updated: 11/20/17 0351 Specimen: Blood from Peripheral Blood Culture No growth: Monitored continually by instrument for 5 days Culture, Blood [[id number]] (Normal) Collected: 11/19/17 1506 Order Status: Completed Lab Status: Preliminary result Updated: 11/20/17 0321 Specimen: Blood from Peripheral Blood Culture No growth: Monitored continually by instrument for 5 days Culture, Urine [[id number]] Collected: 11/19/17 1416 Order Status: Completed Lab [...] I&D with 5th matatarsal resection R foot, ain reciate assistance with the case -Virus panel [...] Other Pharmacy Consult Nasim Jimenez 11/21/2017 11:05 [facility] Nasim Hoff MD - 11/20/2017 10:04 AM PDT [facility] [place] HOSPITALIST PROGRESS NOTE Patient: Reagan Shepard : 1945: Age: 72 y.o. MedRec: [id number] Admission date: 11/19/2017 Hospital day # : [...] Units 15 Units Subc utaneous Nightly Mil Sandvoal MD insulin lispro (humaLOG KWIKPEN) 100 units/mL [...] PH UA 5.0 5.0 - 8.0 Specific [place] 1.017 1.001 - 1.030 PROTEIN UA 30 [...] Component Value Units Date/Time Culture, Wound, Smear [[id number]] Collected: 11/20/17824 Order Status: Sent Lab Status: In process Updated: 11/20/17828 Specimen: Tissue from Foot, Right Culture, Wound, Smear [[id number]] Collected: 11/19/172030 Order Status: Completed Lab Status: Preliminary result Updated: 11/20/17899 Specimen: Tissue from Leg, Lower, Right Culture 2+ Gram Negative Jayesh, NOT Pseudomonas Comment: Identification and susceptibility to follow. 1+ Gram Positive Cocci Comment: Isolating for additional information. Gram Stain Result No white blood cells (PMNs) seen 1+ Gram negative rods Culture, Blood [[id number]] (Normal) Collected: 11/19/17 1537 Order Status: Completed Lab Status: Preliminary result Updated: 11/20/17 0351 Specimen: Blood from Peripheral Blood Culture No growth: Monitored continually by instrument for 5 days Culture, Blood [[id number]] (Normal) Collected: 11/19/17 1506 Order Status: Completed Lab Status: Preliminary result Updated: 11/20/17 0321 Specimen: Blood from Peripheral Blood Culture No growth: Monitored continually by instrument for 5 days Culture, Urine [[id number]] (Normal) Collected: 11/19/17 1416 Order Status: Completed [...] Other Pharmacy Consult Nasim Jimenez 11/20/2017 10:05 [facility] Khadra Mac Phar mD - 11/20/2017 9:10 [...] (HCC); an d TBI (traumatic brain injury) ([facility]). . No risk factors for MDR organisms. [...] Component Value Units Date/Time Culture, Wound, Smear [[id number]] Collected: 11/20/17 0825 Order Status: Sent Lab Status: In process Updated: 11/20/17828 Specimen: Tissue from Foot, Right Culture, Wound, Smear [[id number]] Collected: 11/19/172030 Order Status: Completed Lab Status: Preliminary result Updated: 11/20/17 09 Specimen: Tissue from Leg, Lower, Right Culture 2+ Gram Negative Jayesh, NOT Pseudomonas Comment: Identification and susceptibility to follow. 1+ Gram Positive Cocci Comment: Isolating for additional information. Gram Stain Result No white blood cells (PMNs) seen 1+ Gram negative rods Culture, Respiratory, Lower, Smear [[id number]] Order Status: Sent Lab Status: No result Specimen: Body Fluid from Sputum, Expectorated Culture, Wound, Smear [[id number]] Order Status: Canceled Lab Status: No result Specimen: Tissue from Leg, Left Culture, Blood [[id number]] (Normal) Collected: 11/19/17 1537 Order Status: Completed Lab Status: Preliminary result Updated: 11/20/17 0351 Specimen: Blood from Peripheral Blood Culture No growth: Monitored continually by instrument for 5 days Culture, Blood [[id number]] (Normal) Collected: 11/19/17 1506 Order Status: Completed Lab Status: Preliminary result Updated: 11/20/17 0321 Specimen: Blood from Peripheral Blood Culture No growth: Monitored continually by instrument for 5 days Culture, Urine [[id number]] (Normal) Collected: 11/19/17 1416 Order Status: Completed [...] cerebral hemisphere; Diabetes mellitus (HCC); Stroke (cerebrum) ([facility]); an d TBI (traumatic brain injury) ([facility]). . No risk factors for MDR organisms. [...] Value Units Date/Time Culture, Respiratory, Lower, Smear [[id number]] Order Status: Sent Lab Status: No result Specimen: Body Fluid from Sputum, Expectorated Culture, Wound, Smear [[id number]] Order Status: Sent Lab Status: No result Specimen: Tissue from Leg, Left Culture, Blood [[id number]] Collected: 11/19/17 1537 Order Status: Sent Lab Status: In process Updated: 11/19/17 1543 Specimen: Blood from Peripheral Blood Culture, Blood [[id number]] Collected: 11/19/17 1506 Order Status: Sent Lab Status: In process Updated: 11/19/17 1511 Specimen: Blood from Peripheral Blood Culture, Urine [[id number]] Collected: 11/19/17 1416 Order Status: Sent Lab [...] K?MRN: | | | | | | [id number] | | | [id number] | | | his | | | [...] | | | ent/06 | | | [id number] | | | -9b07- | | | [...] | | | St. | | | [place] | | | y H. | | [...] | | | St. | | | [place] | | | y | | | [...] + | [facility] | [address] | [place] | [phone] | | [facility] | | [address] | | | - LABORATORY | | [...] [address] | [place] | [phone] | | [facility] | | [address] | | | - LABORATORY | | [...] [address] | [place] | [phone] | | [facility] | | [address] | | | - LABORATORY | | [...] 15 | 7 - 18 mg/dL | [facility] | | | | | | [facility] | | | | | | MEDICAL | | | | | | CENTER - | | | | | | LABORATORY | | + + + + + + | Creatinine | 0.91 | 0.60 - 1.30 | [facility] | | | | | mg/dL | [facility] | | | | | | MEDICAL | | | | | | CENTER - | | | | | | LABORATORY | | + + + + + + | eGFR if not | >60Comment: GLOMERULAR | >=60 | [facility] | | | | FILTRATION | mL/min/1.73m2 | [facility] | | | [place] | RATE,ESTIMATED | | MEDICAL | | | | mL/min/1.89p9Vogx than | | CENTER - | | [...] + | [facility] | [address] | [place] | [phone] | | [facility] | | [address] | | | - LABORATORY | | [...] + | [facility] | [address] | [place], [place] | [phone] | | [facility] | | [address] | | | - LABORATORY | | [...] + + | Performing | Address | City/State/[facility] | Phone Number | | Organization | | | | + + + + + | [facility] | [address] | [place] | [phone] | | [facility] | | [address] | | | - LABORATORY | | [...] [address] | [place] | [phone] | | [facility] | | [address] | | | - LABORATORY | | [...] [address] | [place] | [phone] | | [facility] | | [address] | | | - LABORATORY | | [...] [address] | [place] | [phone] | | [facility] | | [address] | | | - LABORATORY | | [...] | 0.91 | 0.60 - 1.30 | [facility] | | | | | mg/dL | [facility] | | | | | | MEDICAL | | | | | | CENTER - | | | | | | LABORATORY | | + + + + + + | eGFR if not | >60Comment: GLOMERULAR | >=60 | [facility] | | | | FILTRATION | mL/min/1.73m2 | [facility] | | | [place] | RATE,ESTIMATED | | MEDICAL | | | | mL/min/1.47l3Rnyh than | | CENTER - | | [...] + | [facility] | [address] | [place] | [phone] | | [facility] | | [address] | | | - LABORATORY | | [...] + | [facility] | [address] | [place] | [phone] | | [facility] | | [address] | | | - LABORATORY | | [...] [address] | [place] | [phone] | | [facility] | | [address] | | | - LABORATORY | | [...] [address] | [place] | [phone] | | [facility] | | [address] | | | - LABORATORY | | [...] [address] | [place] | [phone] | | [facility] | | [address] | | | - LABORATORY | | [...] ST. | [address] | [place] | [phone] | | [facility] | | [address] | | | - LABORATORY | | [...] [address] | [place] | [phone] | | [facility] | | [address] | | | - LABORATORY | | [...] | 0.87 | 0.60 - 1.30 | [facility] | | | | | mg/dL | [facility] | | | | | | MEDICAL | | | | | | CENTER - | | | | | | LABORATORY | | + + + + + + | eGFR if not | >60Comment: GLOMERULAR | >=60 | [facility] | | | | FILTRATION | mL/min/1.73m2 | [facility] | | | [place] | RATE,ESTIMATED | | MEDICAL | | | | mL/min/1.66e6Emku than | | CENTER - | | [...] + | [facility] | [address] | [place] | [phone] | | [facility] | | [address] | | | - LABORATORY | | [...] [address] | [place] | [phone] | | [facility] | | [address] | | | - LABORATORY | | [...] [address] | [place] | [phone] | | [facility] | | [address] | | | - LABORATORY | | [...] + | [facility] | [address] | [place] | [phone] | | [facility] | | [address] | | | - LABORATORY | | [...] + | [facility] | [address] | [place] | [phone] | | [facility] | | [address] | | | - LABORATORY | | [...] [address] | [place] | [phone] | | [facility] | | [address] | | | - LABORATORY | | [...] [address] | [place] | [phone] | | [facility] | | [address] | | | - LABORATORY | | [...] [address] | [place] | [phone] | | [facility] | | [address] | | | - LABORATORY | | [...] + | [facility] | [address] | [place] | [phone] | | [facility] | | [address] | | | - LABORATORY | | [...] mL/min/1.73m2 | [facility] | | | [place] | RATE,ESTIMATED | | MEDICAL | | | | mL/min/1.36p1Rxly than | | CENTER - | | [...] [address] | [place] | [phone] | | [facility] | | [address] | | | - LABORATORY | | [...] [address] | [place] | [phone] | | [facility] | | [address] | | | - LABORATORY | | [...] + | [facility] | [address] | [place] | [phone] | | [facility] | | [address] | | | - LABORATORY | | [...] [address] | [place] | [phone] | | [facility] | | [address] | | | - LABORATORY | | [...] [address] | [place] | [phone] | | [facility] | | [address] | | | - LABORATORY | | [...] | | | | aerogenesComment: | | [facility] | | | | Consider combination | [...] [address] | [place] | [phone] | | [facility] | | [address] | | | - LABORATORY | | [...] + | [facility] | [address] | [place] | [phone] | | [facility] | | [address] | | | - LABORATORY | | [...] [address] | [place] | [phone] | | [facility] | | [address] | | | - LABORATORY | | [...] [address] | [place] | [phone] | | [facility] | | [address] | | | - LABORATORY | | [...] [address] | [place] | [phone] | | [facility] | | [address] | | | - LABORATORY | | [...] [address] | [place] | [phone] | | [facility] | | [address] | | | - LABORATORY | | [...] [address] | [place] | [phone] | | [facility] | | [address] | | | - LABORATORY | | [...] + | [facility] | [address] | [place] | [phone] | | [facility] | | [address] | | | - LABORATORY | | [...] 0.20 (H) | 0.00 - 0.10 | [facility] | | | Basophils | | K/uL | [facility] | | | | | | MEDICAL [...] [address] | [place] | [phone] | | [facility] | | [address] | | | - LABORATORY | | [...] 14 | 7 - 18 mg/dL | [facility] | | | | | | [facility] | | | [facility] | [facility] | | | | | | [facility]ENTER - | | | | | | LABORATORY | | + + + + + + | Creatinine | 1.02 | 0.60 - 1.30 | [facility] | | | | | mg/dL | [facility] | | | | | | MEDICAL | | | | | | CENTER - | | | | | | LABORATORY | | + + + + + + | eGFR if not | >60Comment: GLOMERULAR | >=60 | [facility] | | | | FILTRATION | mL/min/1.73m2 | [facility] | | | GHANAIAN | RATE,ESTIMATED | | MEDICAL | | | | mL/min/1.90a4Eida than | | CENTER - | | [...] + | [facility] | [address] | [place] | [phone] | | [facility] | | [address] | | | - LABORATORY | | [...] [address] | [place] | [phone] | | [facility] | | [address] | | | - LABORATORY | | [...] ST. | [address] | [place] | [phone] | | [facility] | | [address] | | | - LABORATORY | | [...] | | chronic inflammation suggestive of osteomyelitis. JVR:[facility]:C2NR | | | MICROSCOPIC EXAMINATION: Histologic sections [...] decalcified in decal | | | STAT).. am:AMB:[facility] PERFORMING LABORATORY: The technical | | | component was performed by [facility], [address] [place] [address] | | | [place] [address] (Napping Machine Operator: Khadra Gill MD; CLIA# | | | [id number]). Professional interpretation was performed by [facility] | | | [facility], [address] | | | [place] [address] (Napping Machine Operator: Ambrosio | | | [place]). [...] [address] | [place] | [phone] | | [facility] | | [address] | | | - LABORATORY | | [...] | | | | | | n [place] | | | | | + +---------+ [...] ST. | [address] | [place] | [phone] | | [facility] | | [address] | | | - LABORATORY | | [...] + + | Performing | Address | City/State/[facility] Cent[facility]ode | Phone Number | | Organization [...] + | Performed at: 01 - [address] [place] [address], | REFERENCE LAB | | [place], [place] [address] Owner/Operator: Jurgen Costa MD, Phone: | NIKKI - BKElba | | [phone] | | + + + + + + + + | Performing | Address | City/State/Zipcode | Phone Number | | Organization | | | | + + + + + | REFERENCE LAB | [address] | [place], [place] | [phone] | | [facility] | [address] | [address] | | + + + + + [...] + | [facility] | [address] | [place] | [phone] | | [facility] | | [address] | | | - LABORATORY | | [...] [address] | [place] | [phone] | | [facility] | | [address] | | | - LABORATORY | | [...] + | [facility] | [address] | [place] | [phone] | | [facility] | | [address] | | | - LABORATORY | | [...] + | [address] | [address] | [place] | [phone] | | [facility] | | [address] | | | - LABORATORY | | [...] [address] | [place] | [phone] | | [facility] | | [address] | | | - LABORATORY | | [...] [address] | [place] | [phone] | | [facility] | | [address] | | | - LABORATORY | | [...] [address] | [place] | [phone] | | [facility] | | [address] | | | - LABORATORY | | [...] + | [facility] | [address] | [place], [place] | [phone] | | [facility] | | [address] | | | - LABORATORY | | [...] [address] | [place] | [phone] | | [facility] | | [address] | | | - LABORATORY | | [...] | | | | | | [facility] | | | | | | MEDICAL | | | | | | CENTER - | | | | | | LABORATORY | | + + + + + + | BUN | 15 | 7 - 18 mg/dL | [facility] | | | | | | [facility] | | | | | | MEDICAL | | | | | | CENTER - | | | | | | LABORATORY | | + + + + + + | Creatinine | 0.91 | 0.60 - 1.30 | [facility] | | | | | mg/dL | [facility] | | | | | | MEDICAL | | | | | | CENTER - | | | | | | LABORATORY | | + + + + + + | eGFR if not | >60Comment: GLOMERULAR | >=60 | [facility] | | | | FILTRATION | mL/min/1.73m2 | [facility] | | | GHANAIAN | RATE,ESTIMATED | | MEDICAL | | | | mL/min/1.52i9Vfio than | | CENTER - | | [...] + | [facility] | [address] | [place] | [phone] | | [facility] | | [address] | | | - LABORATORY | | [...] [address] | [place] | [phone] | | [facility] | | [address] | | | - LABORATORY | | [...] [address] | [place] | [phone] | | [facility] | | [address] | | | - LABORATORY | | [...] [address] | [place] | [phone] | | [facility] | | [address] | | | - LABORATORY | | [...] + | [address] | [address] | [place] | [phone] | | [facility] | | [address] | | | - LABORATORY | | [...] [address] | [place] | [phone] | | [facility] | | [address] | | | - LABORATORY | | [...] [address] | [place] | [phone] | | [facility] | | [address] | | | - LABORATORY | | [...] + | [facility] | [address] | [place] | [phone] | | [facility] | | [address] | | | - LABORATORY | | [...] [address] | [place] | [phone] | | [facility] | | [address] | | | - LABORATORY | | [...] | | | | | mg/dL | [facility] | | | | | | MEDICAL | | | | | | CENTER - | | | | | | LABORATORY | | + + + + + + | eGFR if not | >60Comment: GLOMERULAR | >=60 | [facility] | | | | FILTRATION | mL/min/1.73m2 | [facility] | | | GHANAIAN | RATE,ESTIMATED | | MEDICAL | | | | mL/min/1.30e2Syyy than | | CENTER - | | [...] | | | | | mg/dL | [facility] | | | | | | [...] [address] | [place] | [phone] | | [facility] | | [address] | | | - LABORATORY | | [...] [address] | [place] | [phone] | | [facility] | | [address] | | | - LABORATORY | | [...] + + | Performing | Address | City/State/[facility] Centercode | Phone Number | | Organization [...] | REFERENCE | | | | of [place] Pathologists | | LAB [facility] | | | | standards require a | | - [facility] | | | | culture to beperformed | | | | | | on CSF specimens | | | | | | submitted for bacterial | | | | | | antigen testing.(CAP | | | | | | [id number]) Urine | | | | | | specimens will not be | | | | | | cultured. | | | | + + + + + + + + | Specimen | + + | Urine | + + + + + | Narrative | Performed At | + + + | Performed at: 01 - Nikki Jha [address] [place] [address], | REFERENCE LAB | | [place], [place] [id number] Owner/Operator: Christ Deal MD, Phone: | NIKKI - NICOLÁS | | [phone] | | + + + + + + + + | Performing | Address | City/State/Zipcode | Phone Number | | Organization | | | | + + + + + | REFERENCE LAB | [address] | [place], [place] | [phone] | | [facility] | [facility] | [address] | | + + + + + [...] + | [facility] [facility] | [address] | [place] | [phone] | | [facility] | | [address] | | | - LABORATORY | | [...] - 1.030 | [facility] | | | [place], | | | [facility] | | [...] [address] | [place] | [phone] | | [facility] | | [address] | | | - LABORATORY | | [...] | | | | | | use Wallace 10/325 if ordered. If | | | [...] | | | | last modification) on [facility] 11/24/17 | | | | | [...] | | | | | | | 8622-0542 Use NIGHT DOSE for | | | | | | | doses scheduled: HS, 3AM, | | | | | | | Nighttime 2259-6510, | | | | | | + [...] scheduled: AC, NPO, Daytime | | | 8645-3489 Use NIGHT DOSE for | | | doses scheduled: HS, 3AM, | | | Nighttime 9316-7363, | | + +---+ | | | [...] | | | | | | | 5139-3381 Use NIGHT DOSE for | | | | | | | doses scheduled: HS, 3AM, | | | | | | | Nighttime 3145-5153, | | | | | | + [...] | | | | | Subcutaneous, ONCE, [facility] 11/24/17 at | | | | [...]
--- OUTSIDE RECORDS SUMMARY | ~2019-08-08 | XMS | Encounter Summary ---
Demographics + + + | Address | [address] | | | [place] [address] | + + + | Home Phone | | + + + | Preferred Language | Unknown | + + + | Marital Status | | + + + | Episcopal Affiliation | 1076 | + + + | Race | Unknown | + + + | Ethnic Group | Unknown | + + + Author + + + | Author | [facility] | | | and [place] | + + + | Organization | [facility] | | | and [place] | + + + | Address | Unknown | + + + | Phone | Unavailable | + + + Support + + + + + | Name | Relationship | Address | Phone | + + + + + | Jessica Shepard | ECON | [address] | | | | | [place] | | | | | [address] | | + + + + + | Bel Solis | ECON | Unknown | | + + + + + Care Team Providers + +------+ + | Care Stem Dryer Maintainer Name | Role | Phone | + +------+ + | Jamar Manuel MD | PCP | | + +------+ + Encounter Details +--------+ + + + + | Date | Type | Department | Care Team | Description | +--------+ + + + + | 04/10/ | Anesthesia | [facility] | Haroldo Ford, | | | 2019 | [facility] | NEWS COMMENTATOR [address] | | | | | [address]PER[address] | [place] [address] | | | | | [address] | [phone] | | | | | [place], [place] | | | | | | [address] | Eli Davies, | | | | | [phone] | Gina NEWS COMMENTATOR [address] | | | | | | [address] | | | | | | [place] [address] | | | | | | [phone] | | | | | | | [...] Dhara Mendez RN | | IV | [id number]-[id number] catheter system; | | | | | [...]
--- OUTSIDE RECORDS SUMMARY | ~2019-08-08 | XMS | Encounter Summary ---
Demographics + + + | Address | [address] | | | [place] [address] | + + + | Home Phone | | + + + | Preferred Language | Unknown | + + + | Marital Status | | + + + | Mandaen Affiliation | 1076 | + + + | Race | Unknown | + + + | Ethnic Group | Unknown | + + + Author + + + | Author | [facility] | | | and [place] | + + + | Organization | [facility] | | | and [place] | + + + | Address | Unknown | + + + | Phone | Unavailable | + + + Support + + + + + | Name | Relationship | Address | Phone | + + + + + | Jessica Shepard | ECON | [address] | | | | | [place] | | | | | [address] | | + + + + + | Bel Solis | ECON | Unknown | | + + + + + Care Team Providers + +------+ + | Care Nautical Instrument Mechanic Name | Role | Phone | + +------+ + | Jamar Manuel MD | PCP | | + +------+ + Encounter Details +--------+ + + + + | Date | Type | Department | Care Team | Description | +--------+ + + + + | 04/18/ | Anesthesia | [facility] | Khadra Cheng, | | | 2019 | [facility] | [address] | | | | | [address]PER[address] | [place] [address] | | | | | [address] | [phone] | | | | | [place], [place] | | | | | | [address] | | | | | | [phone] | | | +--------+ + + + [...] +----+---+ + + | | 1 | Jackson | | | | 3 | 43-degrees [...] | Sheila Cabrera, | | Lumen | Vice Provost; Kameron; Registered | | RN | | [...] | | | | lot number (specify) ([id number]); | | | | | 4 Fr, length (specify) (47cm | | | | | total [id number] out); | | | | | distraction, [...]
--- OUTSIDE RECORDS SUMMARY | ~2019-08-08 | XMS | Encounter Summary ---
Demographics + + + | Address | [address] | | | [place] [address] | + + + | Home Phone [...] + | Jessica Shepard | ECON | [address] | | | | | [place] | | | | | [address] | | + + + + + | Bel Solis | ECON | Unknown | | + + + + + Care Team Providers + +------+ + | Care Decorative Engraver Apprentice Name | Role | Phone | + +------+ + PCP | Unavailable | + +------+ + Encounter Details +--------+ + + + + | Date | Type | Department | Care Team | Description | +--------+ + + + + | 12/08/ | Hospital | [facility] | | | | 1999 | Encounter | MED CTR XRAY [address] | | | | | | [place] | | | | | | [place] [address] | | | | | | [phone] | | | +--------+ + + + [...]
--- OUTSIDE RECORDS SUMMARY | ~2019-08-08 | XMS | Encounter Summary ---
Demographics + + + | Address | [address] | | | [place] [address] | + + + | Home Phone | | + + + | Preferred Language | Unknown | + + + | Marital Status | | + + + | Denominational Affiliation | 1076 | + + + | Race | Unknown | + + + | Ethnic Group | Unknown | + + + Author + + + | Author | [facility] | | | and [place] | + + + | Organization | [facility] | | | and [place] | + + + | Address | Unknown | + + + | Phone | Unavailable | + + + Support + + + + + | Name | Relationship | Address | Phone | + + + + + | Jessica Shepard | ECON | [address] | | | | | [place] | | | | | [address] | | + + + + + | Bel Solis | ECON | Unknown | | + + + + + Care Team Providers + +------+ + | Care Social Media Designer Name | Role | Phone | + +------+ + | Dian Lr NP | PCP | | + +------+ + Encounter Details +--------+ + + + + | Date | Type | Department | Care Team | Description | +--------+ + + + + | 11/26/ | Hospital | [facility] | Toby Ortiz | Leonel osteomyelitis | | 2018 | Encounter | MED CTR OP INFUSION | [address] | of right foot (HCC) | | | | [address] | [facility] | (Primary Dx) | | | | [place] | [place] [address] | | | | | [address] | [phone] | | | | | [phone] | | | +--------+ + + + [...] saline. SBAR report to ELLIOT Ramirez @ [facility] who continues care. Dressing will Need [...]
--- OUTSIDE RECORDS SUMMARY | ~2019-08-08 | XMS | Encounter Summary ---
Demographics + + + | Address | [address] | | | [place] [address] | + + + | Home Phone | | + + + | Preferred Language | Unknown | + + + | Marital Status | | + + + | Rastafarian Affiliation | 1076 | + + + | Race | Unknown | + + + | Ethnic Group | Unknown | + + + Author + + + | Author | [facility] | | | and [place] | + + + | Organization | [facility] | | | and [place] | + + + | Address | Unknown | + + + | Phone | Unavailable | + + + Support + + + + + | Name | Relationship | Address | Phone | + + + + + | Jessica Shepard | ECON | [address] | | | | | [place] | | | | | [address] | | + + + + + | Bel Solis | ECON | Unknown | | + + + + + Care Team Providers + +------+ + | Care Housesmith Name | Role | Phone | + +------+ + | Dian Lr NP | PCP | | + +------+ + Encounter Details +--------+ + + + + | Date | Type | Department | Care Team | Description | +--------+ + + + + | 11/26/ | Hospital | [facility] | Diana Toby | | | 2018 | Encounter | MED CTR XRAY [address] | [address] | | | | | [place] | [facility] | | | | | [place] [address] | [place] [address] | | | | | [phone] | [phone] | | | | | | | [...]
--- OUTSIDE RECORDS SUMMARY | ~2019-08-08 | XMS | Encounter Summary ---
Demographics + + + | Address | [address] | | | [place] [address] | + + + | Home Phone | | + + + | Preferred Language | Unknown | + + + | Marital Status | | + + + | Amish Affiliation | 1076 | + + + | Race | Unknown | + + + | Ethnic Group | Unknown | + + + Author + + + | Author | [facility] | | | and [place] | + + + | Organization | [facility] | | | and [place] | + + + | Address | Unknown | + + + | Phone | Unavailable | + + + Support + + + + + | Name | Relationship | Address | Phone | + + + + + | Jessica Shepard | ECON | [address] | | | | | [place] | | | | | [address] | | + + + + + | Bel Solis | ECON | Unknown | | + + + + + Care Team Providers + +------+ + | Care Service Liaison Representative Name | Role | Phone | [...] + + | 05/08/ | Office | [facility] | Mika Tim, DNP | Peripheral vascular | | 2020 | Visit | VASCULAR SURGERY | [address] | disease (HCC) | | | | [address] | [place] | (Primary Dx) | | | | [place] | [address] | | | | | [address] | | | | | | [phone] | Bhanu Seaman, | | | | | | FRANCY [address] | | | | | | [address] [place] | | | | | | [place] [address] | | | | | | [phone] | | | | | | | [...] Bhanu Maguire PA-C - 05/08/2019 9:30 AM [facility] [address] [place] [address] Office: [phone] DATE OF VISIT: 05/08/2019 PATIENT NAME: Reagan Shepard : 1945; AGE: 74 y.o.; Sex:M PHONE NUMBER: ; ; PROVIDER: Bhanu Seaman PA-C PRIMARY CARE / REFERRING PHYSICIAN: Mika Tim DNP / Jamar Manuel MD / [address] / [place] [address] REASON FOR EVALUATION / CHIEF COMPLAINT: Vascular [...] have been stable. He is staying at [facility] in [place]. Mariaelena allen thinks his wounds are healing. [...] are healing well without signs of infection. [place] intact. Ulcers on right foot in h [...] o bilateral feet ulcers. Follow up with directory compiler soon. Return to vascular clinic in 2 [...]
--- OUTSIDE RECORDS SUMMARY | ~2019-08-08 | XMS | Encounter Summary ---
Demographics + + + | Address | [address] | | | [place] [address] | + + + | Home Phone [...] + | Jessica Shepard | ECON | [address] | | | | | [place] | | | | | [address] | | + + + + + | Bel Solis | ECON | Unknown | | + + + + + Care Team Providers + +------+ + | Care Crown Assembly Machine Operator Name | Role | Phone | + +------+ + | Jamar Manuel MD | PCP | | + +------+ + Encounter Details +--------+ + + + + | Date | Type | Department | Care Team | Description | +--------+ + + + + | 01/03/ | Lab | [facility] | Toby Ortiz | Other acute | | 2018 | Requisition | MED CTR LABORATORY | [address] | osteomyelitis, right | | | | [address] [place] | [facility] | ankle and foot | | | | [place], [place] | [facility] [address] | ([facility]); Diabetes | | | | [address] | [phone] | mellitus due to | | | | [phone] | | underlying condition | | | | | | with foot ulcer | | | | | | (CODE) ([facility]); Other | | | | | | longwall headgate operator (current) | | | | | | [...] results section. | | | | | ([facility]) Diabetes | | | | | | mellitus due to | | | | | | underlying condition | | | | | | with foot ulcer | | | | | | (CODE) ([facility]) Other | | | | | | longwall headgate operator (current) | | | | | | drug therapy | | + +--------+ + + + | CBC WITH | Routin | 01/03/2018 | Other acute | Results for this | | DIFFERENTIAL | e | 9:45 AM | osteomyelitis, right | procedure are in the | | | | PDT | ankle and foot | results section. | | | | | (HCC) Diabetes | | | | | | mellitus due to | | | | | | underlying condition | | | | | | with foot ulcer | | | | | | (CODE) ([facility]) Other | | | | | | longwall headgate operator (current) | | | | | | drug therapy | | + +--------+ + + + | C-REACTIVE PROTEIN | Routin | 01/03/2018 | Other acute | Results for this | | | e | 9:45 AM | osteomyelitis, right | procedure are in the | | | | PDT | ankle and foot | results section. | | | | | ([facility]) Diabetes | | | | | | mellitus due to | | | | | | underlying condition | | | | | | with foot ulcer | | | | | | (CODE) ([facility]) Other | | | | | | longwall headgate operator (current) | | | | | | drug therapy | | + +--------+ + + + | COMPREHENSIVE | Routin | 01/03/2018 | Other acute | Results for this | | METABOLIC PANEL | e | 9:45 AM | osteomyelitis, right | procedure are in the | | | | PDT | ankle and foot | results section. | | | | | ([facility]) Diabetes | | | | | | mellitus due to | | | | | | underlying condition | | | | | | with foot ulcer | | | | | | (CODE) ([facility]) Other | | | | | | alf (current) | | | | | | [...] 12 | 7 - 18 mg/dL | [facility] | | | | | | [facility] | | | | | | MEDICAL | | | | | | CENTER - | | | | | | LABORATORY | | + + + + + + | Creatinine | 0.63 | 0.60 - 1.30 | [place] | | | | | mg/dL | [facility] | | | | | | MEDICAL | | | | | | CENTER - | | | | | | LABORATORY | | + + + + + + | eGFR if not | >60Comment: GLOMERULAR | >=60 | [place] | | | | FILTRATION | mL/min/1.73m2 | [facility] | | | [place] | RATE,ESTIMATED | | MEDICAL | | | | mL/min/1.50i8Djhb than | | CENTER - | | [...] (L) | 3.2 - 5.0 g/dL | [facility] | | | | [...] + | [facility] | [address] | [place] | [phone] | | [facility] | | [address] | | | - LABORATORY | | [...] [address] | [place] | [phone] | | [facility] | | [address] | | | - LABORATORY | | | | + + + + + Sedimentation Rate (01/03/2018 9:45 AM PDT) + +--------+ + + + | Component | Value | Ref Range | Performed | Pathologist | | | | | At | Signature | + +--------+ + + + | Erythrocyte | 49 (H) | <20 mm/hr | [facility] | | | | | | [facility] | | | Sedimentati | | | [...] + | [facility] | [address] | [place] | [phone] | | [facility] | | [address] | | | - LABORATORY | | [...] [facility] | | | | | | [facility] | | | | | | MEDICAL | | | | | | CENTER - | | | | | | LABORATORY | | + + + + + + | RBC | 4.83 | 4.30 - 5.70 | [facility] | | | | | M/uL | [facility] | | | | | [...] [address] | [place] | [phone] | | [facility] | | [address] | | | - LABORATORY | | | | + + + + + documented in this encounter Visit Diagnoses + + | Diagnosis | + + | Other acute osteomyelitis, right ankle and foot (HCC) | + + | 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
--- OUTSIDE RECORDS SUMMARY | ~2019-08-08 | XMS | Encounter Summary ---
Demographics + + + | Address | [address] | | | [place] [address] | + + + | Home Phone | | + + + | Preferred Language | Unknown | + + + | Marital Status | | + + + | Pentecostalism Affiliation | 1076 | + + + | Race | Unknown | + + + | Ethnic Group | Unknown | + + + Author + + + | Author | [facility] | | | and [place] | + + + | Organization | [facility] | | | and [place] | + + + | Address | Unknown | + + + | Phone | Unavailable | + + + Support + + + + + | Name | Relationship | Address | Phone | + + + + + | Jessica Shepard | ECON | [address] | | | | | [place] | | | | | [address] | | + + + + + | Bel Solis | ECON | Unknown | | + + + + + Care Team Providers + +------+ + | Care Chemical Process Engineer Name | Role | Phone | [...] + + | 06/25/ | Telephone | [facility] | Karyn Guerra, | Follow-up | | 2019 | | VASCULAR SURGERY | RN | | | | | [address] | | | | | | [facility] [place] | | | | | | [address] | | | | | | [phone] | | | +--------+ + + + [...]
--- OUTSIDE RECORDS SUMMARY | ~2019-08-08 | XMS | Encounter Summary ---
Demographics + + + | Address | [address] | | | [place] [address] | + + + | Home Phone [...] + | Jessica Shepard | ECON | [address] | | | | | [place] | | | | | [address] | | + + + + + | Bel Solis | ECON | Unknown | | + + + + + Care Team Providers + +------+ + | Care Overnight Houseperson Name | Role | Phone | + [...] + + + + | 04/25/ | Telephone | [facility] | Ely Mcguire | Other (care | | 2020 | | INFECTIOUS DISEASE | Parminder RN | coordination) | | | | [address] | | | | | | [place], [place] | | | | | | [address] | | | | | | [phone] | | | +--------+ + + + [...]
--- OUTSIDE RECORDS SUMMARY | ~2019-08-08 | XMS | Encounter Summary ---
Demographics + + + | Address | [address] | | | [place] [address] | + + + | Home Phone | | + + + | Preferred Language | Unknown | + + + | Marital Status | | + + + | Anabaptist Affiliation | 1076 | + + + | Race | Unknown | + + + | Ethnic Group | Unknown | + + + Author + + + | Author | [facility] | | | and [place] | + + + | Organization | [facility] | | | and [place] | + + + | Address | Unknown | + + + | Phone | Unavailable | + + + Support + + + + + | Name | Relationship | Address | Phone | + + + + + | Jessica Shepard | ECON | [address] | | | | | [place] | | | | | [address] | | + + + + + | Bel Solis | ECON | Unknown | | + + + + + Care Team Providers + +------+ + | Care Lockstitch Shoulder Joiner Name | Role | Phone | + +------+ + PCP | Unavailable | + +------+ + Encounter Details +--------+ + + + + | Date | Type | Department | Care Team | Description | +--------+ + + + + | 04/16/ | Hospital | [facility] | Dian Lr NP | | | 2011 | Encounter | MED CTR XRAY [address] | [address] | | | | | [place] | [place] [address] | | | | | [place] [address] | [phone] | | | | | [phone] | | | +--------+ + + + [...] | + +--------+ + + + | DEXA BONE DENSITY | | 04/16/2011 | | Results for this | | STUDY EDDIE AUGUST FX | | 11:20 AM | | procedure are in the | | ASSESSMENT | | PST | | results section. | + +--------+ + + + documented in this encounter Results DEXA Bone Density Study (04/16/2011 11:20 AM PST) + + | Specimen | + + | | + + + + + | Narrative | Performed At | + + + | [facility] | [facility] | | [address] [facility] | [facility] | | BONE DENSITY TESTING: | DIAG IMG | | 04/16/2011 CLINICAL HISTORY: OSTEOPOROSIS. TECHNIQUE: | | | The bone mineral density was evaluated in this 66-year-old male | | | utilizing dual-energy x-r ay absorption technique applied to the left | | | femoral neck and lumbar spine. Review of the images and d kourtney sheet | | | show the study to be technically satisfactory. The average bone | | | mineral density in lumbar spine region was 1.217 g/cm2, which is 1.1 | | | standard deviat ions above peak bone density (T-score). Matched for | | | age and sex, this bone mineral density was 1.9 st andard deviations | | | above the mean (Z-score). In the femoral neck, the corresponding | | | bone mineral density was 0.749 g/cm2 which is 1.3 standard dev | | | iations below peak bone density and 0.3 standard deviations below the | | | mean. IMPRESSION: BONE MINERAL DENSITIES WHICH FALL IN THE | | | OSTEOPENIC RANGE IN THE FEMORAL NECK NOTED AB OVE. THIS MAY BE | | | THE MORE ACCURATE MEASURE OF THIS PATIENT'S TRUE BONE MINERAL DENSITY | | | BECAUSE OF DE GENERATIVE CHANGES IN THE LUMBAR REGION. | | | Dictated Date/Time: 04/16/2011 13:48 Transcribed Date/Time: | | | 04/16/2011 14:14 Disability Specialist: <Electronically Signed | | | by David Guillermo MD> 04/16/11 1459 | | + + + + + | Procedure Note | + + | Johnson, Rad Conversion - 04/27/2013 4:38 PM [facility] | | Diagnostic Imaging Department [address] [place] [address] | | BONE DENSITY TESTIN04/16/2011 CLINICAL HISTORY: | | OSTEOPOROSIS. TECHNIQUE: The bone mineral density was evaluated in this 66-year-old | | male utilizing dual-energy x-ray absorption technique applied to the left femoral neck | | and lumbar spine. Review of the images and data sheet show the study to be technically | | satisfactory. The average bone mineral density in lumbar spine region was 1.217 g/cm2, | | which is 1.1 standard deviations above peak bone density (T-score). Matched for age and | | sex, this bone mineral density was 1.9 standard deviations above the mean (Z-score). In | | the femoral neck, the corresponding bone mineral density was 0.749 g/cm2 which is 1.3 | | standard deviations below peak bone density and 0.3 standard deviations below the mean. | | IMPRESSION: BONE MINERAL DENSITIES WHICH FALL IN THE OSTEOPENIC RANGE IN THE FEMORAL | | NECK NOTED ABOVE. THIS MAY BE THE MORE ACCURATE MEASURE OF THIS PATIENT'S TRUE BONE | | MINERAL DENSITY BECAUSE OF DEGENERATIVE CHANGES IN THE LUMBAR REGION. Dictated | | Date/Time: 04/16/2011 13:48Transcribed Date/Time: 04/16/2011 14:14Transcriptionist: | | <Electronically Signed by David Guillermo MD> 04/16/11 1459 | |andard deviations above the mean (Z-score). | | | |In the femoral neck, the corresponding bone mineral density was 0.749 g/cm2 which is 1.3 st andard dev | |iations below peak bone density and 0.3 standard deviations below the mean. | | | |IMPRESSION: BONE MINERAL DENSITIES WHICH FALL IN THE OSTEOPENIC RANGE IN THE FEMORAL NECK A S NOTED AB | |OVE. THIS MAY BE THE MORE ACCURATE MEASURE OF THIS PATIENT'S TRUE BONE MINERAL DENSITY BEC AUSE OF DE | |GENERATIVE CHANGES IN THE LUMBAR REGION. | | | | | | | |Dictated Date/Time: 04/16/2011 13:48 | |Transcribed Date/Time: 04/16/2011 14:14 | |Disability Specialist: | |<Electronically Signed by David Guillermo MD> 04/16/11 1459 | + + + +---------+ + + | Performing | Address | City/State/Zipcode | Phone Number | | Organization | | | | + +---------+ + + | [place] | | | | | [place] | | | | + +---------+ + + documented in this encounter Visit Diagnoses Not on filedocumented in this encounter"
--- OUTSIDE RECORDS SUMMARY | ~2019-08-08 | XMS | Clinical Summary ---
Demographics + + + | Address | [address] | | | [place] [address] | + + + | Home Phone [...] | Author | [facility] [email or web address] (Historical as of | | | 11-04-18) | + + + | Organization | [facility] (Historical as of | | | 11-04-18) [...] Team Providers + +------+ + | Care Vision Specialist Name | Role | Phone | [...] + + + | Overview: Problem List [employer] | + + + + + | Acute left hemiparesis (HCC) | 05/14/2016 | + + + | Type 2 diabetes mellitus with hyperglycemia, with long-term | 05/14/2016 | | current use of insulin ([facility]) | | + + + | Ischemic [...] + + | MEDICARE | MEDICA | [id number] | | | [address] | | | RE | | | | [place] [address] | | | IP-OP | | | | | + +--------+ +------+ + + | VETERANS | VETERA | [id number] | | [phone] FEE SERVICES [id number] | | ADMINISTRATION | [place] | | | [phone] | | | ADMINI | | | | [place] | | | [place] | | | | [address] | | | [place] | | | [...] | Self | [birth year] | Home: | [address] | | | al/Fam | | 7 | +- | [place] | | | carlos | | | [address] | [address] | + +--------+ +--------+ + + | SAROJ AMEZQUITA | Vetera | Self | [birth year] | Home: | [address] | | | ns | | 1944 | +- | [place] | | | Admini | | | [address] | [address] | | | strati | | | | | | | on | | | | | + +--------+ +--------+ + +
--- OUTSIDE RECORDS SUMMARY | ~2019-08-08 | XMS | Encounter Summary ---
Demographics + + + | Address | [address] | | | [place] [address] | + + + | Home Phone | | + + + | Preferred Language | Unknown | + + + | Marital Status | | + + + | Gnosticism Affiliation | 1076 | + + + | Race | Unknown | + + + | Ethnic Group | Unknown | + + + Author + + + | Author | [facility] | | | and [place] | + + + | Organization | [facility] | | | and [place] | + + + | Address | Unknown | + + + | Phone | Unavailable | + + + Support + + + + + | Name | Relationship | Address | Phone | + + + + + | Jessica Shepard | ECON | [address] | | | | | [place] | | | | | [address] | | + + + + + | Bel Solis | ECON | Unknown | | + + + + + Care Team Providers + +------+ + | Care Car Unloader Name | Role | Phone | + +------+ + | Jamar Manuel MD | PCP | | + +------+ + Encounter Details +--------+ + + + + | Date | Type | Department | Care Team | Description | +--------+ + + + + | 01/03/ | Lab | [facility] | Toby Ortiz | Other acute | | 2018 | Requisition | MED CTR LABORATORY | MD [address] | osteomyelitis, right | | | | [address] [place] | [facility] | ankle and foot | | | | [place], [place] | [place] [address] | ([facility]); Diabetes | | | | [address] | [phone] | mellitus due to | | | | [phone] | | underlying condition | | | | | | with foot ulcer | | | | | | (CODE) ([facility]); Other | | | | | | watcher automat long goods (current) | | | | | | [...] results section. | | | | | ([facility]) Diabetes | | | | | | mellitus due to | | | | | | underlying condition | | | | | | with foot ulcer | | | | | | (CODE) ([facility]) Other | | | | | | watcher automat long goods (current) | | | | | | [...] | | | | | | (CODE) ([facility]) Other | | | | | | watcher automat long goods (current) | | | | | | drug therapy | | + +--------+ + + + | C-REACTIVE PROTEIN | Routin | 01/03/2018 | Other acute | Results for this | | | e | 9:45 AM | osteomyelitis, right | procedure are in the | | | | PDT | ankle and foot | results section. | | | | | ([facility]) Diabetes | | | | | | mellitus due to | | | | | | underlying condition | | | | | | with foot ulcer | | | | | | (CODE) ([facility]) Other | | | | | | watcher automat long goods (current) | | | | | | drug therapy | | + +--------+ + + + | COMPREHENSIVE | Routin | 01/03/2018 | Other acute | Results for this | | METABOLIC PANEL | e | 9:45 AM | osteomyelitis, right | procedure are in the | | | | PDT | ankle and foot | results section. | | | | | ([facility]) Diabetes | | | | | | mellitus due to | | | | | | underlying condition | | | | | | with foot ulcer | | | | | | (CODE) ([facility]) Other | | | | | | retirement (current) | | | | | | [...] 12 | 7 - 18 mg/dL | [facility] | | | | | | [facility] | | | | | | MEDICAL | | | | | | CENTER - | | | | | | LABORATORY | | + + + + + + | Creatinine | 0.63 | 0.60 - 1.30 | [facility] | | | | | mg/dL | [facility] | | | | | | MEDICAL | | | | | | CENTER - | | | | | | LABORATORY | | + + + + + + | eGFR if not | >60Comment: GLOMERULAR | >=60 | [facility] | | | | FILTRATION | mL/min/1.73m2 | [facility] | | | LATVIAN | RATE,ESTIMATED | | MEDICAL | | | | mL/min/1.92u6Cgva than | | CENTER - | | [...] + | [facility] | [address] | [place] | [phone] | | [facility] | | [address] | | | - LABORATORY | | [...] [address] | [place] | [phone] | | [facility] | | [address] | | | - LABORATORY | | [...] + | [facility] | [address] | [place] | [phone] | | [facility] | | [address] | | | - LABORATORY | | [...] [facility] | | | | | | [facility] | | | | | | MEDICAL | | | | | | CENTER - | | | | | | LABORATORY | | + + + + + + | RBC | 4.83 | 4.30 - 5.70 | [facility] | | | | | M/uL | [facility] | | | | | | [...] [address] | [place] | [phone] | | 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
--- OUTSIDE RECORDS SUMMARY | ~2019-08-08 | XMS | Encounter Summary ---
Demographics + + + | Address | [address] | | | [place] [address] | + + + | Home Phone [...] + | Jessica Shepard | ECON | [address] | | | | | [place] | | | | | [address] | | + + + + + | Bel Solis | ECON | Unknown | | + + + + + Care Team Providers + +------+ + | Care Business Objects Report Developer Name | Role | Phone | + +------+ + PCP | Unavailable | + +------+ + Encounter Details +--------+ + + + + | Date | Type | Department | Care Team | Description | +--------+ + + + + | 02/22/ | Hospital | [facility] | | | | 2000 | Encounter | MED CTR XRAY [address] | | | | | | [place] [place] | | | | | | [place] [address] | | | | | | [phone] | | | +--------+ + + + [...]
--- OUTSIDE RECORDS SUMMARY | ~2019-08-08 | XMS | Encounter Summary ---
Demographics + + + | Address | [address] | | | [place] [address] | + + + | Home Phone | | + + + | Preferred Language | Unknown | + + + | Marital Status | | + + + | Moravian Affiliation | 1076 | + + + [...] + | Jessica Shepard | ECON | [address] | | | | | [place] | | | | | [address] | | + + + + + | Bel Solis | ECON | Unknown | | + + + + + Care Team Providers + +------+ + | Care River Pilot Name | Role | Phone | + +------+ + | Jamar Manuel MD | PCP | | + +------+ + Reason for Visit +--------+ + | Reason | Comments | +--------+ + | Other | He is refusing to come to appointment. He will call us back when | | | he is ready. | +--------+ + Encounter Details +--------+ + + + + | Date | Type | Department | Care Team | Description | +--------+ + + + + | 07/22/ | Telephone | [facility] | Dylan Gaston, | Other (He is | | 2020 | | INFECTIOUS DISEASE | Hero Malave MD | refusing to come to | | | | [address] | [address] | appointment. He will | | | | [place] | [place] [address] | call us back when | | | | [address] | [phone] | he is ready.) | | | | [phone] | | | +--------+ + + + [...]
--- OUTSIDE RECORDS SUMMARY | ~2019-08-08 | XMS | Encounter Summary ---
Demographics + + + | Address | [address] | | | [place] [address] | + + + | Home Phone [...] | Author | [facility] | | | and [place] | + [...] + | Jessica Shepard | ECON | [address] | | | | | [place] | | | | | [address] | | + + + + + | Bel Solis | ECON | Unknown | | + + + + + Care Team Providers + +------+ + | Care Long Winder Tender Name | Role | Phone | + +------+ + | Jamar Manuel MD | PCP | | + +------+ + Encounter Details +--------+ + + + + | Date | Type | Department | Care Team | Description | +--------+ + + + + | 04/18/ | Anesthesia | [facility] | Khadra Cheng, | | | 2019 | [facility] | [address] | | | | | [address] | [place] [address] | | | | | [address] | [phone] | | | | | [place], [place] | | | | | | [address] | | | | | | [phone] | | | +--------+ + + + [...] +----+---+ + + | | 1 | [place] | | | | 3 | 43-degrees [...] | Sheila Cabrera, | | Lumen | Concrete Stone Finisher; Kameron; Registered | | RN | | [...] | | | | lot number (specify) ([id number]); | | | | | 4 Fr, length (specify) (47cm | | | | | total [id number] out); | | | | | distraction, [...]
--- OUTSIDE RECORDS SUMMARY | ~2019-08-08 | XMS | Encounter Summary ---
Demographics + + + | Address | [address] | | | [place] [address] | + + + | Home Phone | | + + + | Preferred Language | Unknown | + + + | Marital Status | | + + + | Sabianist Affiliation | 1076 | + + + | Race | Unknown | + + + | Ethnic Group | Unknown | + + + Author + + + | Author | [facility] | | | and [place] | + + + | Organization | [facility] | | | and [place] | + + + | Address | Unknown | + + + | Phone | Unavailable | + + + Support + + + + + | Name | Relationship | Address | Phone | + + + + + | Jessica Shepard | ECON | [address] | | | | | [place] | | | | | [address] | | + + + + + | Bel Solis | ECON | Unknown | | + + + + + Care Team Providers + +------+ + | Care Softwood Faller Name | Role | Phone | + [...] | | | | | (HCC) | [facility] | | | | | | Procedures | [address] | | | | | | [address] | Phone: | | | | | | Art Bilat w | [phone] | | | | | | CINDY Multi | Fax: | | | | | | Lvl | [phone] | | +--------+--------+ + + + + Reason for Visit + + + | Reason | Comments | + + + | Follow-up | | + + + Encounter Details +--------+---------+ + + + | Date | Type | Department | Care Team | Description | +--------+---------+ + + + | 05/21/ | Office | [facility] | Mika Tim, DNP | Peripheral vascular | | 2020 | Visit | VASCULAR SURGERY | [address] | disease (HCC) | | | | [address] [place] | [place], [place] | (Primary Dx); S/P | | | | [place], [place] | [address] | arterial stent; S/P | | | | [address] | | femoral-popliteal | | | | [phone] | | bypass surgery; | | | [...] Mika Tim DNP - 05/22/2019 10:[address] [facility] [address] [place] [address] Office: [phone] DATE OF VISIT: 05/22/2019 PATIENT NAME: Reagan Shepard : 1945; AGE: 74 y.o.; Sex:M PHONE NUMBER: ; ; PROVIDER: Mika Tim DNP PRIMARY CARE / REFERRING PHYSICIAN: No ref. provider found / Jamar Manuel MD / [address] / [place] [address] REASON FOR EVALUATION / CHIEF COMPLAINT: Vascular [...] have been stable. He is staying at [facility] in [place]. Mariaelena allen has not followed up with his magneto repairer Dr. Ceballos yet. He is taking aspirin [...] to bilateral feet ulcers. Follow up with magneto repairer soon. Return to vascular clinic in 1 [...]
--- OUTSIDE RECORDS SUMMARY | ~2019-08-08 | XMS | Encounter Summary ---
Demographics + + + | Address | [address] | | | [place] [address] | + + + | Home Phone [...] + | Jessica Shepard | ECON | [address] | | | | | [place] | | | | | [address] | | + + + + + | Bel Solis | ECON | Unknown | | + + + + + Care Team Providers + +------+ + | Care Motor Vehicles Supervisor Name | Role | Phone | + +------+ + | Jamar Manuel MD | PCP | | + +------+ + Encounter Details +--------+ + + + + | Date | Type | Department | Care Team | Description | +--------+ + + + + | 04/10/ | Anesthesia | [facility] | Haroldo Ford, | | | 2019 | [facility] | HELP DESK ADMINISTRATOR [address] | | | | | [address]PER[address] | [place] [address] | | | | | [address] | [phone] | | | | | [place], [place] | | | | | | [address] | Eli Davies, | | | | | [phone] | Gina HELP DESK ADMINISTRATOR [address] | | | | | | [address] | | | | | | [place] [address] | | | | | | [phone] | | | | | | | [...] Dhara Mendez RN | | IV | tomv-con-hmleni catheter system; | | | | | [...]
--- OUTSIDE RECORDS SUMMARY | ~2019-08-08 | XMS | Encounter Summary ---
Demographics + + + | Address | [address] | | | [place] [address] | + + + | Home Phone [...] + | Jessica Shepard | ECON | [address] | | | | | [place] | | | | | [address] | | + + + + + | Bel Solis | ECON | Unknown | | + + + + + Care Team Providers + +------+ + | Care Installation Superintendent Name | Role | Phone | + +------+ + | Jamar Manuel MD | PCP | | + +------+ + Encounter Details +--------+ + + + + | Date | Type | Department | Care Team | Description | +--------+ + + + + | 05/08/ | Hospital | [facility] | Mika Tim DNP | Peripheral vascular | | 2020 | Encounter | VASCULAR SURGERY | [address] | disease (HCC) | | | | ULTRASOUND [address] | [place], [place] | | | | | [address] | [address] | | | | | [place], [place] | | | | | | [address] | | | | | | [phone] | | | +--------+ + + + [...] the | | | | PST | ([facility]) | results section. | + +--------+ + [...]
--- OUTSIDE RECORDS SUMMARY | ~2019-08-08 | XMS | Encounter Summary ---
Demographics + + + | Address | [address] | | | [place] [address] | + + + | Home Phone | | + + + | Preferred Language | Unknown | + + + | Marital Status | | + + + | Samaritan Affiliation | 1076 | + + + | Race | Unknown | + + + | Ethnic Group | Unknown | + + + Author + + + | Author | [facility] | | | and [place] | + + + | Organization | [facility] | | | and [place] | + + + | Address | Unknown | + + + | Phone | Unavailable | + + + Support + + + + + | Name | Relationship | Address | Phone | + + + + + | Jessica Shepard | ECON | [address] | | | | | [place] | | | | | [address] | | + + + + + | Bel Solis | ECON | Unknown | | + + + + + Care Team Providers + +------+ + | Care Isobutylene Operator Chief Name | Role | Phone | + +------+ + | Jamar Manuel MD | PCP | | + +------+ + Encounter Details +--------+ + + + + | Date | Type | Department | Care Team | Description | +--------+ + + + + | 05/18/ | Documentati | [facility] | Kelsi, | | | 2020 | on | INFECTIOUS DISEASE | [address] | | | | | [address] | [address] | | | | | [place], [place] | [place] [address] | | | | | [address] | [phone] | | | | | [phone] | | | +--------+ + + + [...] further issues arise over the weekend, ID beef boner physician will be contacted.Electr onically signed by Damaris oDlan MD at 05/18/2019 1:59 PM PSTdocumented in [...]
--- OUTSIDE RECORDS SUMMARY | ~2019-08-08 | XMS | Encounter Summary ---
Demographics + + + | Address | [address] | | | [place] [address] | + + + | Home Phone [...] + | Jessica Shepard | ECON | [address] | | | | | [place] | | | | | [address] | | + + + + + | Bel Solis | ECON | Unknown | | + + + + + Care Team Providers + +------+ + | Care Gas Main Fitter Helper Name | Role | Phone | + +------+ + | Dian Lr NP | PCP | | + +------+ + Encounter Details +--------+ + + + + | Date | Type | Department | Care Team | Description | +--------+ + + + + | 11/26/ | Hospital | [facility] | Diana Toby | | | 2018 | Encounter | MED CTR XRAY [address] | [address] | | | | | [place] | [facility] | | | | | [place] [address] | [place] [address] | | | | | [phone] | [phone] | | | | | | | [...]
--- OUTSIDE RECORDS SUMMARY | ~2019-08-08 | XMS | Encounter Summary ---
Demographics + + + | Address | [address] | | | [place] [address] | + + + | Home Phone | | + + + | Preferred Language | Unknown | + + + | Marital Status | | + + + | Restorationism Affiliation | 1076 | + + + [...] + | Jessica Shepard | ECON | [address] | | | | | [place] | | | | | [address] | | + + + + + | Bel Solis | ECON | Unknown | | + + + + + Care Team Providers + +------+ + | Care Lead Radiation Therapist Name | Role | Phone | + [...] + + | 05/02/ | Telephone | [facility] | Ely Mcguire | Other (care | | 2020 | | INFECTIOUS DISEASE | Parminder RN | coordination) | | | | [address] | | | | | | [place], [place] | | | | | | [address] | | | | | | [phone] | | | +--------+ + + + [...]
--- OUTSIDE RECORDS SUMMARY | ~2019-08-08 | XMS | Encounter Summary ---
Demographics + + + | Address | [address] | | | [place] [address] | + + + | Home Phone [...] + | Jessica Shepard | ECON | [address] | | | | | [place] | | | | | [address] | | + + + + + | Bel Solis | ECON | Unknown | | + + + + + Care Team Providers + +------+ + | Care Toddler Nanny Name | Role | Phone | + +------+ + | Dian Lr NP | PCP | | + +------+ + Encounter Details +--------+ + + + + | Date | Type | Department | Care Team | Description | +--------+ + + + + | 07/31/ | Orders Only | [facility] | Conversion | | | 2019 | | INFECTIOUS DISEASE | Transaction, | | | | | [address] | Provider Unknown | | | | | [place], [place] | | | | | | [address] | (Fax) | | | | | [phone] | | | +--------+ + + + [...]
--- OUTSIDE RECORDS SUMMARY | ~2019-08-08 | XMS | Encounter Summary ---
Demographics + + + | Address | [address] | | | [place] [address] | + + + | Home Phone | | + + + | Preferred Language | Unknown | + + + | Marital Status | | + + + | Anabaptism Affiliation | 1076 | + + + | Race | Unknown | + + + | Ethnic Group | Unknown | + + + Author + + + | Author | [facility] | | | and [place] | + + + | Organization | [facility] | | | and [place] | + + + | Address | Unknown | + + + | Phone | Unavailable | + + + Support + + + + + | Name | Relationship | Address | Phone | + + + + + | Jessica Amezquita | ECON | [address] | | | | | [place] | | | | | [address] | | + + + + + | Bel Solis | ECON | Unknown | | + + + + + Care Team Providers + +------+ + | Care Hand Inspector Name | Role | Phone | + +------+ + | Dian Lr NP | PCP | | + +------+ + Encounter Details +--------+ + + + + | Date | Type | Department | Care Team | Description | +--------+ + + + + | 04/05/ | Hospital | [facility] | Cezar Da Silvaee | | | 2014 - | Encounter | [facility] EM[facility] | MD Sunshine [address] | | | | | [place] [address] | [facility], | | | 04/06/ | | [place] | [place] [address] | | | 2013 | | [address] | [phone] | | | | | [phone] | | | +--------+ + + + [...] Performed At | + + + | [facility] | [place] | | Department [address] [facility] | [facility] | | [ rep ct [address]] [ rep ct [facility] | | [facility]] Signed | - IMAGING | | | | | Patient Name: REAGAN AMEZQUITA Physician: | | | ALICJAR. : 1945 Age: 68 Sex: M Unit #: [id number] | | | Exam Date: 04/05/13 Location: ER | | | Report #: [id number] Page: | | | %(RAD)RES..mtdd.print.filter("pg") of %(RAD) | | | RES..mtdd.print.filter("tpg") | | | | | | Accession Number: [id number] | | | ULTRASOUND OF THE ABDOMEN [...] Transcribed Date/Time: 04/06/2013 08:35 | | | Bowling Floor Manager: <<Signature on File>> | | | | | | Rico Santiago MD04/06/13 1619 <Electronically signed by Rico Santiago | | | MD> Rico Santiago MD 04/06/13 0827 Bowling Floor Manager: | | | [facility] Kndtclgemiixc64/17/14 0835 Christian Da Silva, | | | | | + + + + + + + + | Performing | Address | City/State/Zipcode | Phone Number | | Organization | | | | + + + + + | [facility] | [address] | [place] | [phone] | | [facility] | | [address] | | | - IMAGING | | | | + + + + + CT Abdomen Pelvis w Contrast (04/06/2013 7:25 AM PST) + + | Specimen | + + | | + + + + + | Narrative | Performed At | + + + | [facility] | [place] | | Department [address], [place] | [facility] | | [ rep ct [address]] [ rep ct [facility] | | st zip] Signed | - IMAGING | | | | | Patient Name: REAGAN AMEZQUITA Physician: | | | ALICJAR. : 1945 Age: 68 Sex: M Unit #: [id number] | | | Exam Date: 04/05/13 Location: ER | | | Report #: [id number] Page: | | | %(RAD)RES..mtdd.print.filter("pg") of %(RAD) | | | RES..mtdd.print.filter("tpg") | | | | | | Accession Number: [id number] | | | ENHANCED CT ABDOMEN AND [...] | fluid is evident. There are stable mejogjjeab-tt-flebph enlarged | | | kierra caval lymph [...] STABLE SPLENOMEGALY. | | | 4. STABLE CNPSPHVXKL-LO-UAJYAW ENLARGED KIERRA CAVAL LYMPH | | | [...] ER | | | staff by the [facility] radiologist on 04/05/2013 at 2147 hours. | | | Dictated Date/Time: 04/06/2013 07:25 Transcribed | | | Date/Time: 04/06/2013 07:40 Bowling Floor Manager: | | | <<Signature on File>> | | | Tez Jacobo | | | MD Yossi04/06/13 1051 <Electronically signed by Tez Sy MD> | | | Tez Sy MD 04/06/13 0725 Bowling Floor Manager: | | | [facility] Ngddezfswtgky62/17/14 0740 Christina Da Silva, | | | | | + + + + + + + + | Performing | Address | City/State/Zipcode | Phone Number | | Organization | | | | + + + + + | [facility] | [address] | [place] | [phone] | | [facility] | | [address] | | | - IMAGING | | [...] - 1.030 | [facility] | | | [place], | | | [facility] | | [address] | [place] | [phone] | | [facility] | | [address] | | | - LABORATORY | | | | + + + + + | [facility] | [address] | [place] | | | [facility] | | [address] | | | - LABORATORY | [...] + | [facility] | [address] | [place] | [phone] | | [facility] | | [address] | | | - LABORATORY | | | | + + + + + | [facility] | [address] | [place], [place] | | | [facility] | | [address], [facility] | | | - LABORATORY [...] + | [facility] | [address] | [place], [place] | [phone] | | [facility] | | [facility] | | | - LABORATORY | | | | + + + + + | [facility] | [address] | [place], [place] | | | [facility] | | [address] [place] [address] | | | - LABORATORY | | [...] [address] | [place] | [phone] | | [facility] | | [address] | | | - LABORATORY | | | | + + + + + | [facility] | [address] | [place] | | | [facility] | | [address], [facility] | | | - LABORATORY [...] | | | | | REPORT TO [facility] | | | | | | 04/05/13 @ 1919 by | | | | | | SHANE | | | | | | Comment: PHONED REPORT TO [facility] 04/05/13 @ 1919 by SHANE | | | | + + + +-- + + + + | Specimen | + + | | + + + + + + + | Performing | Address | City/State/Zipcode | Phone Number | | Organization | | | | + + + + + | [facility] | [address] | [place] | [phone] | | [facility] | | [address] | | | - LABORATORY | | | | + + + + + | [facility] | [address] | [place] | | | [facility] | | [address] | | | - LABORATORY | | | | + + + + + documented in this encounter Visit Diagnoses Not on filedocumented in this encounter
--- OUTSIDE RECORDS SUMMARY | ~2019-08-08 | XMS | Encounter Summary ---
Demographics + + + | Address | [address] | | | [place] [address] | + + + | Home Phone | | + + + | Preferred Language | Unknown | + + + | Marital Status | | + + + | Quaker Affiliation | 1076 | + + + | Race | Unknown | + + + | Ethnic Group | Unknown | + + + Author + + + | Author | [facility] | | | and [place] | + + + | Organization | [facility] | | | and [place] | + + + | Address | Unknown | + + + | Phone | Unavailable | + + + Support + + + + + | Name | Relationship | Address | Phone | + + + + + | Jessica Shepard | ECON | [address] | | | | | [place] | | | | | [address] | | + + + + + | Bel Solis | ECON | Unknown | | + + + + + Care Team Providers + +------+ + | Care Wire Straightening Machine Operator Name | Role | Phone [...] + + | 07/22/ | Telephone | [facility] | Dylan Gaston, | Other (He is | | 2020 | | INFECTIOUS DISEASE | Hero Malave MD | refusing to come to | | | | [address] | [address] | appointment. He will | | | | [place] | [place] [address] | call us back when | | | | [address] | [phone] | he is ready.) | | | | [phone] | | | +--------+ + + + [...]
--- OUTSIDE RECORDS SUMMARY | ~2019-08-08 | XMS | Encounter Summary ---
Demographics + + + | Address | [address] | | | [place] [address] | + + + | Home Phone | | + + + | Preferred Language | Unknown | + + + | Marital Status | | + + + | Congregation Affiliation | 1076 | + + + | Race | Unknown | + + + | Ethnic Group | Unknown | + + + Author + + + | Author | [facility] | | | and [place] | + + + | Organization | [facility] | | | and [place] | + + + | Address | Unknown | + + + | Phone | Unavailable | + + + Support + + + + + | Name | Relationship | Address | Phone | + + + + + | Jessica Shepard | ECON | [address] | | | | | [place] | | | | | [address] | | + + + + + | Bel Solis | ECON | Unknown | | + + + + + Care Team Providers + +------+ + | Care Crop Farm Workers Name | Role | Phone | + +------+ + | Jamar Manuel MD | PCP | | + +------+ + Encounter Details +--------+ + + + + | Date | Type | Department | Care Team | Description | +--------+ + + + + | 04/10/ | Hospital | [facility] | Aleksander oMntiel, | | | 2019 | [facility] | [facility] | MD Nash SMITH | | | | | ULTRASOUND [address] [place], [place] | | | | [address] | [address] | | | | | [place], [place] | [phone] | | | | | [address] | | | | | | [phone] | | | +--------+ + + + [...]
--- OUTSIDE RECORDS SUMMARY | ~2019-08-08 | XMS | Encounter Summary ---
Demographics + + + | Address | [address] | | | [place] [address] | + + + | Home Phone | | + + + | Preferred Language | Unknown | + + + | Marital Status | | + + + | Denominational Affiliation | 1076 | + + + | Race | Unknown | + + + | Ethnic Group | Unknown | + + + Author + + + | Author | [facility] | | | and [place] | + + + | Organization | [facility] | | | and [place] | + + + | Address | Unknown | + + + | Phone | Unavailable | + + + Support + + + + + | Name | Relationship | Address | Phone | + + + + + | Jessica Shepard | ECON | [address] | | | | | [place] | | | | | [address] | | + + + + + | Bel Solis | ECON | Unknown | | + + + + + Care Team Providers + +------+ + | Care Certified Caregiver Name | Role | Phone | + [...] + + | 05/14/ | Documentati | [facility] | Nimo Westbrook, | Other (*Labs from | 2019 | on | INFECTIOUS DISEASE | Rn Forensic | [facility] | | | | [address] | | 05/11/2019 | | | [facility] | | (CREATININE WITH | | | | [address] | | GFR)) | | | | [phone] | | | +--------+ + + + [...] as of this encounter Progress Nimo Harley, Rn Forensic - 05/14/2019 2:47 PM PST*Labs from [facility] (CREATININE WITH GFR) RECEIVED: 05/14/2019 Labs were abstracted into [email or web address] and sent to scan. Kaye CMA Tdocumented [...] | [address] [facility] | [place], [place] | [phone] | | [facility] | | [address] | | + + + + + [...]
--- OUTSIDE RECORDS SUMMARY | ~2019-08-08 | XMS | Encounter Summary ---
Demographics + + + | Address | [address] | | | [place] [address] | + + + | Home Phone [...] + | Jessica Shepard | ECON | [address] | | | | | [place] | | | | | [address] | | + + + + + | Bel Solis | ECON | Unknown | | + + + + + Care Team Providers + +------+ + | Care J2Ee Engineer Name | Role | Phone | + +------+ + PCP | Unavailable | + +------+ + Encounter Details +--------+ + + + + | Date | Type | Department | Care Team | Description | +--------+ + + + + | 12/27/ | Hospital | [facility] | | | | 2006 | Encounter | MED CTR XRAY [address] | | | | | [place] | | | | | | [place] [address] | | | | | | [phone] | | | +--------+ + + + [...]
--- OUTSIDE RECORDS SUMMARY | ~2019-08-08 | XMS | Encounter Summary ---
Demographics + + + | Address | [address] | | | [place] [address] | + + + | Home Phone [...] | Organization | [facility] | | | and [place] | + + + | Address | Unknown | + + + | Phone | Unavailable | + + + Support + + + + + | Name | Relationship | Address | Phone | + + + + + | Jessica Shepard | ECON | [address] | | | | | [place] | | | | | [address] | | + + + + + | Bel Solis | ECON | Unknown | | + + + + + Care Team Providers + +------+ + | Care Regulatory Affairs Coordinator Name | Role | Phone | + [...] + + | 05/18/ | Telephone | [facility] | Libra Weaver RN | CHF Management (CHF | | 2020 | | [address] | | quality measures) | | | | [place] | | | | | | [address] | | | | | | [phone] | | | +--------+ + + + [...]
--- OUTSIDE RECORDS SUMMARY | ~2019-08-08 | XMS | Clinical Summary ---
Demographics + + + | Address | [address] | | | [place] [address] | + + + | Home Phone | | + + + | Preferred Language | Unknown | + + + | Marital Status | | + + + | Restorationist Affiliation | 1076 | + + + | Race | Unknown | + + + | Ethnic Group | Unknown | + + + Author + + + | Author | [facility] [employer] (Historical as of | | | 11-04-18) | + + + | Organization | [facility] (Historical as of | | [...] Team Providers + +------+ + | Care Insurance Account Assistant Name | Role | Phone | [...] + + + | Overview: Problem List Multimedia Engineer Utility | + + + + + | Acute left hemiparesis (HCC) | 05/14/2016 | + + + | Type 2 diabetes mellitus with hyperglycemia, with long-term | 05/14/2016 | | current use of insulin ([facility]) | | + + + | [...] + + | MEDICARE | MEDICA | [id number] | | | [address] | | | RE | | | | [place] [address] | | | IP-OP | | | | | + +--------+ +------+ + + | VETERANS | VETERA | [id number] | | [phone] [employer]EE [employer] [address] | | ADMINISTRATION | [place] | | | [phone] | [phone] | | | ADMINI | | | | [place] | | | [place] | | | | [address] | | | ON | | | [...] | Self | [birth year] | Home: | [address] | | | al/Fam | | 7 | +- | [place] | | | carlos | | | [address] | [address] | + +--------+ +--------+ + + | SAROJ AMEZQUITA | Vetera | Self | [birth year] | Home: | [address] | | | ns | | 1944 | +- | [place] | | | Admini | | | [address] | [address] | | | strati | | | | | | | on | | | | | + +--------+ +--------+ + +
--- OUTSIDE RECORDS SUMMARY | ~2019-08-08 | XMS | Encounter Summary ---
Demographics + + + | Address | [address] | | | [place] [address] | + + + | Home Phone [...] | Author | [facility] | | | and [place] | + + + | Organization | [facility] | | | and [place] | + + + | Address | Unknown | + + + | Phone | Unavailable | + + + Support + + + + + | Name | Relationship | Address | Phone | + + + + + | Jessica Shepard | ECON | [address] | | | | | [place] | | | | | [address] | | + + + + + | Bel Solis | ECON | Unknown | | + + + + + Care Team Providers + +------+ + | Care Diamond Die Maker Name | Role | Phone | [...] + + | 04/25/ | Telephone | [facility] | Ely Mcguire | Other (care | | 2020 | | INFECTIOUS DISEASE | Parminder RN | coordination) | | | | [address] | | | | | | [place], [place] | | | | | | [address] | | | | | | [phone] | | | +--------+ + + + [...]
--- OUTSIDE RECORDS SUMMARY | ~2019-08-08 | XMS | Encounter Summary ---
Demographics + + + | Address | [address] | | | [place] [address] | + + + | Home Phone [...] + + | Author | [facility] | | | and [place] | + + + | Organization | [facility] | | | and [place] | + + + | Address | Unknown | + + + | Phone | Unavailable | + + + Support + + + + + | Name | Relationship | Address | Phone | + + + + + | Jessica Shepard | ECON | [address] | | | | | [place] | | | | | [address] | | + + + + + | Bel Solis | ECON | Unknown | | + + + + + Care Team Providers + +------+ + | Care Clinical Systems Educator Name | Role | Phone | + [...] + + | 06/25/ | Telephone | [facility] | Karyn Guerra, | Follow-up | | 2019 | | VASCULAR SURGERY | RN | | | | | [address] | | | | | | [facility] | | | | | | [address] | | | | | | [phone] | | | +--------+ + + + [...]
--- OUTSIDE RECORDS SUMMARY | ~2019-08-08 | XMS | Encounter Summary ---
Demographics + + + | Address | [address] | | | [place] [address] | + + + | Home Phone [...] + | Jessica Shepard | ECON | [address] | | | | | [place] | | | | | [address] | | + + + + + | Bel Solis | ECON | Unknown | | + + + + + Care Team Providers + +------+ + | Care Economic Adviser Name | Role | Phone | + [...] + + | 05/11/ | Documentati | [facility] | Nimo Westbrook, | Other (Labs from | | 2019 | on | INFECTIOUS DISEASE | Product Management Intern | [facility] | | | | [address] | | 04/26/2019- | | | | [place] | | 0) | | | | [address] | | | | | | [phone] | | | +--------+ + + + [...] of this encounter Progress Notes Nimo Westbrook, Product Management Intern - 05/11/2019 1:36 PM PST*Labs from [facility] 08/2019 (CBC,BMP,VANCOMYCIN TROUGH).. *Labs from [facility] 05/01/2019 (CBC,CMP, ESR,CRP, VANCOMYCIN TROUGH).. *Labs from [facility] 05/03/2019 (CMP,VANCOMYCIN TROUGH). *Labs from [facility] 05/06/2019 (BMP,VANCOMYCIN TROUGH). *Labs from [facility] 05/09/2019 (BMP,VANCOMYCIN TROUGH RECEIVED: 05/10/2019 Labs were abstracted into [employer] and sent to scan. Kaye CMA Tdocumented [...] of [facility] | [place] | [phone] | | [facility] | | [address] | | + + + + + [...] part of [facility] | [place] | [phone] | | [facility] | | [address] | | + + + + + [...] + + + | REFERENCE LAB | [address] [facility] | [place] | [phone] | | [facility] | | [address] | | + + + + + [...] of [facility] | [place] | [phone] | | [facility] | | [address] | | + + + + + [...] [address] | [place] | [phone] | | [facility] | | [address] | | + + + + + [...] part of [facility] | [place], [place] | [phone] | | [facility] | | [address] | | + + + + + [...] + + | REFERENCE LAB | [address] [facility] | [place], [place] | [phone] | | [facility] | | [address] | | + + + + + [...] + + | REFERENCE LAB | [address] | [place] | [phone] | | [facility] | | [address] | | + + + + + [...] [address] | [place] | [phone] | | [facility] | | [address] | | + + + + + [...] [address] | [place] | [phone] | | [facility] | | [address] | | + + + + + [...] + + | REFERENCE LAB | [address] [facility] [address] | [place] | [phone] | | [facility] | | [address] | | + + + + + [...] of [facility] | [place] | [phone] | | [facility] | | [address] | | + + + + + [...] part of [facility] | [place] | [phone] | | [facility] | | [address] | | + + + + + [...] [address] | [place] | [phone] | | [facility] | Bl[address] | [address] | | | LABORATORY | | | | + + + + + | REFERENCE LAB | [address] [facility] | [place], [place] | | | [facility] | Blvd. | [address] | | | LABORATORY | | | [...]
--- OUTSIDE RECORDS SUMMARY | ~2019-08-08 | XMS | Encounter Summary ---
Demographics + + + | Address | [address] | | | [place] [address] | + + + | Home Phone | | + + + | Preferred Language | Unknown | + + + | Marital Status | | + + + | Lutheran Affiliation | 1076 | + + + | Race | Unknown | + + + | Ethnic Group | Unknown | + + + Author + + + | Author | [facility] | | | and [place] | + + + | Organization | [facility] | | | and [place] | + + + | Address | Unknown | + + + | Phone | Unavailable | + + + Support + + + + + | Name | Relationship | Address | Phone | + + + + + | Jessica Shepard | ECON | [address] | | | | | [place] | | | | | [address] | | + + + + + | Bel Solis | ECON | Unknown | | + + + + + Care Team Providers + +------+ + | Care Executive Sales Assistant Name | Role | Phone | [...] + | 06/24/ | Telephone | [facility] | Mika Tim DNP | Consult | | 2019 | | VASCULAR SURGERY | [address] | | | | | [address] [place] | [place], [place] | | | | | [place], [place] | [address] | | | | | [address] | | | | | | [phone] | | | +--------+ + + + [...]
--- OUTSIDE RECORDS SUMMARY | ~2019-08-08 | XMS | Encounter Summary ---
Demographics + + + | Address | [address] | | | [place] [address] | + + + | Home Phone | | + + + | Preferred Language | Unknown | + + + | Marital Status | | + + + | Buddhism Affiliation | 1076 | + + + | Race | Unknown | + + + | Ethnic Group | Unknown | + + + Author + + + | Author | [facility] | | | and [place] | + + + | Organization | [facility] | | | and [place] | + + + | Address | Unknown | + + + | Phone | Unavailable | + + + Support + + + + + | Name | Relationship | Address | Phone | + + + + + | Jessica Shepard | ECON | [address] | | | | | [place] | | | | | [address] | | + + + + + | Bel Solis | ECON | Unknown | | + + + + + Care Team Providers + +------+ + | Care Housekeeping Department Worker Name | Role | Phone | [...] | | | | | [place] [address] | | | | | | [phone] | | | +--------+ + + + [...]
--- OUTSIDE RECORDS SUMMARY | ~2019-08-08 | XMS | Encounter Summary ---
Demographics + + + | Address | [address] | | | [place] [address] | + + + | Home Phone [...] + | Jessica Shepard | ECON | [address] | | | | | [place] | | | | | [address] | | + + + + + | Bel Solis | ECON | Unknown | | + + + + + Care Team Providers + +------+ + | Care Strickler Attendant Name | Role | Phone | + +------+ + | Jamar Manuel MD | PCP | | + +------+ + Encounter Details +--------+ + + + + | Date | Type | Department | Care Team | Description | +--------+ + + + + | 04/10/ | Anesthesia | [facility] | Haroldo Ford, | | | 2019 | [facility] | ATHLETIC FIELD CUSTODIAN [address] | | | | | [address]PER[address] | [place] [address] | | | | | [address] | [phone] | | | | | [place], [place] | | | | | | [address] | Eli Davies, | | | | | [phone] | Gina ATHLETIC FIELD CUSTODIAN [address] | | | | | | [address] | | | | | | [place] [address] | | | | | | [phone] | | | | | | | [...] Dhara Mendez RN | | IV | smab-evb-woifsl catheter system; | | | | | [...]
--- OUTSIDE RECORDS SUMMARY | ~2019-08-08 | XMS | Encounter Summary ---
Demographics + + + | Address | [address] | | | [place] [address] | + + + | Home Phone | | + + + | Preferred Language | Unknown | + + + | Marital Status | | + + + | Synagogue Affiliation | 1076 | + + + | Race | Unknown | + + + | Ethnic Group | Unknown | + + + Author + + + | Author | [facility] | | | and [place] | + + + | Organization | [facility] | | | and [place] | + + + | Address | Unknown | + + + | Phone | Unavailable | + + + Support + + + + + | Name | Relationship | Address | Phone | + + + + + | Jessica Shepard | ECON | [address] | | | | | [place] | | | | | [address] | | + + + + + | Bel Solis | ECON | Unknown | | + + + + + Care Team Providers + +------+ + | Care Aircraft Loadmaster Superintendent Name | Role | Phone | [...] + + | 05/02/ | Telephone | [facility] | Ely Mcguire | Other (care | | 2020 | | INFECTIOUS DISEASE | Parminder RN | coordination) | | | | [address] | | | | | | [place], [place] | | | | | | [address] | | | | | | [phone] | | | +--------+ + + + [...]
--- OUTSIDE RECORDS SUMMARY | ~2019-08-08 | XMS | Encounter Summary ---
Demographics + + + | Address | [address] | | | [place] [address] | + + + | Home Phone | | + + + | Preferred Language | Unknown | + + + | Marital Status | | + + + | Catholic Affiliation | 1076 | + + + | Race | Unknown | + + + | Ethnic Group | Unknown | + + + Author + + + | Author | [facility] | | | and [place] | + + + | Organization | [facility] | | | and [place] | + + + | Address | Unknown | + + + | Phone | Unavailable | + + + Support + + + + + | Name | Relationship | Address | Phone | + + + + + | Jessica Shepard | ECON | [address] | | | | | [place] | | | | | [address] | | + + + + + | Bel Solis | ECON | Unknown | | + + + + + Care Team Providers + +------+ + | Care Cushion Former Name | Role | Phone | + +------+ + | Jamar Manuel MD | PCP | | + +------+ + Reason for Visit +---------+ + | Reason | Comments | +---------+ + | Results | LABS (CMP, VANCO TROUGH, CRP, CBC, ESR 05/14/2019) | +---------+ + Encounter Details +--------+ + + + + | Date | Type | Department | Care Team | Description | +--------+ + + + + | 05/16/ | Documentati | [facility] | Dylan Gaston, | Results (LABS (CMP, | | 2019 | on | INFECTIOUS DISEASE | Hero Malave MD | VANCO TROUGH, CRP, | | | | [address] | [address] | CBC, ESR | | | | [place] | [place] [address] | 05/14/2019)) | | | | [address] | [phone] | | | | | [phone] | | | +--------+ + + + [...] documented as of this encounter Progress Notes Charlotte Castellon, Chief Nurse Anesthetist - 05/16/2019 11:48 AM PSTLab Type: CMP, VANCO TR OUGH, CRP, CBC, ESR Lab Collection date: 05/14/2019 Received from:[facility] Abstracted into [place]:YES Sent to scan:YES Author:CHARLOTTE PALENCIA CMA P STdocumented in this encounter Plan of Treatment Not [...] + documented in this encounter Results Sedimentation Rate (05/14/2019) + +--------+ + + + | Component | Value | Ref Range | Performed | Pathologist | | | | | At | Signature | + +--------+ + + + | ESR | 59 (A) | 0 - 15 mm/hr | EXTERNAL | | | | | [...] | + +---------+ + + C-Reactive Protein (05/14/2019) + + + + + + | Component | Value | Ref Range | Performed | Pathologist | | | | | At | Signature | + + + + + + | CRP | 27.0 (A) | 0 - 5 mg/L | EXTERNAL | | | | | [...] | | | + +---------+ + + CBC with Differential (05/14/2019) + [...] | | | + +---------+ + + Vancomycin, Trough (05/14/2019) + + + + + + | Component | Value | Ref Range | Performed | Pathologist | | | | | At | Signature | + + + + + + | Vancomycin, | 18.4 (A) | 10 - 15 ug/ml | EXTERNAL | | | Trough | | | LAB | | + + + + + + + + | Specimen | + + | Blood | + + + +---------+ + + | Performing | Address | City/State/Zipcode | Phone Number | | Organization | | | | + +---------+ + + | EXTERNAL LAB | | | | + +---------+ + + Comprehensive Metabolic Panel (05/14/2019) + +---------+ + + + | Component | Value | Ref Range | Performed | Pathologist | | | | | At | Signature | + +---------+ + + + | Na | 141 | 132 - 143 | EXTERNAL | | | | | mmol/L | LAB | | + +---------+ + + + | K | 4.6 | 3.6 - 5.1 | EXTERNAL | | | | | mmol/L | LAB | | + +---------+ + + + | Cl | 102 | 95 - 112 mmol/L | EXTERNAL | | | | | | LAB | | + +---------+ + + + | Carbon | 33 (A) | 19 - 31 mmol/L | EXTERNAL | | | dioxide | | | LAB | | + +---------+ + + + | Anion Gap | 11 | 7 - 21 mmol/L | EXTERNAL | | | | | | LAB | | + +---------+ + + + | Glucose | 128 (A) | 70 - 100 mg/dL | EXTERNAL | | | | | | LAB | | + +---------+ + + + | BUN | 28 (A) | 6 - 23 mg/dL | EXTERNAL | | | | | | LAB | | + +---------+ + + + | CREATININE | 1.06 | 0.70 - 1.18 | EXTERNAL | | | ([facility]) | | mg/dL | LAB | | + +---------+ + + + | Estimated | 69.0 | 60.0 | EXTERNAL | | | GFR | | mL/min/1.73m2 | LAB | | + +---------+ + + + | BUN/Creatin | 26.4 | 6.0 - 28.6 | EXTERNAL | | | ine Ratio | | | LAB | | + +---------+ + + + | Calcium | 8.2 (A) | 8.5 - 10.3 | EXTERNAL | | | | | mg/dL | LAB | | + +---------+ + + + | AST | 19 | 13 - 39 U/L | EXTERNAL | | | | | | LAB | | + +---------+ + + + | ALT | 19 | 7 - 52 U/L | EXTERNAL | | | | | | LAB | | + +---------+ + + + | Alkaline | 99 | 31 - 120 U/L | EXTERNAL | | | Phosphatase | | | LAB | | + +---------+ + + + | Bilirubin | 0.5 | 0.0 - 1.2 mg/dL | EXTERNAL | | | Total | | | LAB | | + +---------+ + + + | Protein, | 6.2 | 6.0 - 8.3 g/dL | EXTERNAL | | | Total | | | LAB | | + +---------+ + + + | Albumin | 2.8 (A) | 3.5 - 5.0 g/dL | EXTERNAL | | | | | | LAB | | + +---------+ + + + | Globulin | 3.4 | 1.8 - 3.5 g/dL | EXTERNAL | | | | | | LAB | | + +---------+ + + + | A/G Ratio | 0.8 (A) | 1.1 - 2.4 | EXTERNAL [...]
--- OUTSIDE RECORDS SUMMARY | ~2019-08-08 | XMS | Encounter Summary ---
Demographics + + + | Address | [address] | | | [place] [address] | + + + | Home Phone [...] + + | Author | [facility] | | | and [place] | + + + | Organization | [facility] | | | and [place] | + + + | Address | Unknown | + + + | Phone | Unavailable | + + + Support + + + + + | Name | Relationship | Address | Phone | + + + + + | Jessica Shepard | ECON | [address] | | | | | [place] | | | | | [address] | | + + + + + | Bel Solis | ECON | Unknown | | + + + + + Care Team Providers + +------+ + | Care Sales Office Manager Name | Role | Phone | + +------+ + PCP | Unavailable | + +------+ + Encounter Details +--------+ + + + + | Date | Type | Department | Care Team | Description | +--------+ + + + + | 09/14/ | Hospital | [facility] | | | | 2001 | Encounter | MED CTR XRAY [address] | | | | | | [place] | | | | | | [place] [address] | | | | | | [phone] | | | +--------+ + + + [...]
--- OUTSIDE RECORDS SUMMARY | ~2019-08-08 | XMS | Encounter Summary ---
Demographics + + + | Address | [address] | | | [place] [address] | + + + | Home Phone [...] + | Jessica Shepard | ECON | [address] | | | | | [place] | | | | | [address] | | + + + + + | Bel Solis | ECON | Unknown | | + + + + + Care Team Providers + +------+ + | Care Marketing Analytics Manager Name | Role | Phone | [...] + + | 05/08/ | Office | [facility] | Mika Tim, DNP | Peripheral vascular | | 2020 | Visit | VASCULAR SURGERY | [address] | disease (HCC) | | | | [address] | [place] | (Primary Dx) | | | | [place] | [address] | | | | | [address] | | | | | | [phone] | Bhanu Seaman, | | | | | | FRANCY [address] | | | | | | [address] | | | | | | [place] [address] | | | | | | [phone] | | | | | | | [...] Bhanu Maguire PA-C - 05/08/2019 9:30 AM [facility] [address] [place] [address] Office: [phone] DATE OF VISIT: 05/08/2019 PATIENT NAME: Reagan Shepard : 1945; AGE: 74 y.o.; Sex:M PHONE NUMBER: ; ; PROVIDER: Bhanu Seaman PA-C PRIMARY CARE / REFERRING PHYSICIAN: Mika Tim DNP / Jamar Manuel MD / [address] / [place] [address] REASON FOR EVALUATION / CHIEF COMPLAINT: Vascular [...] have been stable. He is staying at [facility] in [place]. Mariaelena allen thinks his wounds are healing. [...] are healing well without signs of infection. [place] intact. Ulcers on right foot in h [...] o bilateral feet ulcers. 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 Return to vascular clinic in 2 [...]
--- OUTSIDE RECORDS SUMMARY | ~2019-08-08 | XMS | Encounter Summary ---
Demographics + + + | Address | [address] | | | [place] [address] | + + + | Home Phone | | + + + | Preferred Language | Unknown | + + + | Marital Status | | + + + | Episcopal Affiliation | 1076 | + + + | Race | Unknown | + + + | Ethnic Group | Unknown | + + + Author + + + | Author | [facility] | | | and [place] | + + + | Organization | [facility] | | | and [place] | + + + | Address | Unknown | + + + | Phone | Unavailable | + + + Support + + + + + | Name | Relationship | Address | Phone | + + + + + | Jessica Shepard | ECON | [address] | | | | | [place] | | | | | [address] | | + + + + + | Bel Solis | ECON | Unknown | | + + + + + Care Team Providers + +------+ + | Care Laser Operator Name | Role | Phone | [...] + + | 06/24/ | Telephone | [facility] | Mika Tim DNP | Consult | | 2019 | | VASCULAR SURGERY | [address] | | | | | [address] | [place], [place] | | | | | [place], [place] | [address] | | | | | [address] | | | | | | [phone] | | | +--------+ + + + [...]
--- OUTSIDE RECORDS SUMMARY | ~2019-08-08 | XMS | Encounter Summary ---
Demographics + + + | Address | [address] | | | [place] [address] | + + + | Home Phone | | + + + | Preferred Language | Unknown | + + + | Marital Status | | + + + | Restorationism Affiliation | 1076 | + + + | Race | Unknown | + + + | Ethnic Group | Unknown | + + + Author + + + | Author | [facility] | | | and [place] | + + + | Organization | [facility] | | | and [place] | + + + | Address | Unknown | + + + | Phone | Unavailable | + + + Support + + + + + | Name | Relationship | Address | Phone | + + + + + | Jessica Shepard | ECON | [address] | | | | | [place] | | | | | [address] | | + + + + + | Bel Solis | ECON | Unknown | | + + + + + Care Team Providers + +------+ + | Care Hand Brush Filler Name | Role | Phone | + [...] | | | | [place] | [phone] | | | | | [address] | | | | | | [phone] | | | +--------+ + + + [...]
--- OUTSIDE RECORDS SUMMARY | ~2019-08-08 | XMS | Encounter Summary ---
Demographics + + + | Address | [address] | | | [place] [address] | + + + | Home Phone | | + + + | Preferred Language | Unknown | + + + | Marital Status | | + + + | Moravian Affiliation | 1076 | + + + | Race | Unknown | + + + | Ethnic Group | Unknown | + + + Author + + + | Author | [facility] | | | and [place] | + + + | Organization | [facility] | | | and [place] | + + + | Address | Unknown | + + + | Phone | Unavailable | + + + Support + + + + + | Name | Relationship | Address | Phone | + + + + + | Jessica Shepard | ECON | [address] | | | | | [place] | | | | | [address] | | + + + + + | Bel Solis | ECON | Unknown | | + + + + + Care Team Providers + +------+ + | Care Labor Operator Name | Role | Phone | + +------+ + PCP | Unavailable | + +------+ + Encounter Details +--------+ + + + + | Date | Type | Department | Care Team | Description | +--------+ + + + + | 12/27/ | Hospital | [facility] | | | | 2006 | Encounter | MED CTR XRAY [address] | | | | | | [place] | | | | | | [place] [address] | | | | | | [phone] | | | +--------+ + + + [...]
--- OUTSIDE RECORDS SUMMARY | ~2019-08-08 | XMS | Encounter Summary ---
Demographics + + + | Address | [address] | | | [place] [address] | + + + | Home Phone | | + + + | Preferred Language | Unknown | + + + | Marital Status | | + + + | Jehovah'S Witness Affiliation | 1076 | + + + | Race | Unknown | + + + | Ethnic Group | Unknown | + + + Author + + + | Author | [facility] | | | and [place] | + + + | Organization | [facility] | | | and [place] | + + + | Address | Unknown | + + + | Phone | Unavailable | + + + Support + + + + + | Name | Relationship | Address | Phone | + + + + + | Jessica Shepard | ECON | [address] | | | | | [place] | | | | | [address] | | + + + + + | Bel Solis | ECON | Unknown | | + + + + + Care Team Providers + +------+ + | Care Numerical Control Nesting Operator Name | Role | Phone | [...] + + | 06/25/ | Telephone | [facility] | Karyn Guerra, | Follow-up | | 2019 | | VASCULAR SURGERY | RN | | | | | [address] | | | | | | [facility] | | | | | | [address] | | | | | | [phone] | | | +--------+ + + + [...]
--- OUTSIDE RECORDS SUMMARY | ~2019-08-08 | XMS | Encounter Summary ---
Demographics + + + | Address | [address] | | | [place] [address] | + + + | Home Phone | | + + + | Preferred Language | Unknown | + + + | Marital Status | | + + + | Yarsanism Affiliation | [id number] | + + + | Race | Unknown | + + + | Ethnic Group | Unknown | + + + Author + + + | Author | [facility] | | | and [place] | + + + | Organization | [facility] | | | and [place] | + + + | Address | Unknown | + + + | Phone | Unavailable | + + + Support + + + + + | Name | Relationship | Address | Phone | + + + + + | Jessica Shepard | ECON | [address] | | | | | [place] | | | | | [address] | | + + + + + | Bel Solis | ECON | Unknown | | + + + + + Care Team Providers + +------+ + | Care Procurement Manager Name | Role | Phone | + +------+ + | Jamar Manuel MD | PCP | | + +------+ + Encounter Details +--------+---------+ + + + | Date | Type | Department | Care Team | Description | +--------+---------+ + + + | 04/18/ | Surgery | [facility] | Gianluca Robbins MD | [facility] | | 2019 | | [facility] | [address] | FEMORAL-TIBIAL | | | | OPERATING ROOM [address] | [place], [place] | | | | | [address] | [address] | | | | | [place], [place] | | | | | | [address] | | | | | | [phone] | | | +--------+---------+ + + + [...] other chronic comorbidities who pre sents to [facility] ER on 04/06 for shortness of breath admitted with 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 The patient was admitted to regular medical floor and started on optimal medical management . On-call shells inspector (Dr. Ruelas) recommended continued medical management. Patient [...] inferior defect with partial improvement at rest manager clinical was i nformed by hospitalist colleague recommended [...] their primary care provider within 1 w habematolel after discharge, follow-up with ID in 2 weeks after discharge, follow-up with vascular s urgery as per their recommendations or otherwise within 2 weeks after discharge. The patien t will need to follow-up with his outpatient shells inspector within 1 to 2 weeks after discharg [...] Results Results Reviewed. [facility]charge Information: [facility] [address] [facility] [phone] Bhanu Seaman PA-C [address] [place] [facility] [address] In 2 weeks Jamar Manuel MD [address] [place] [address] Schedule an appointment as soon as possible for a visit in 1 week Hero Gaston MD [address] [facility] [address] Schedule an appointment as soon as possible for a visit in 2 weeks Post hospital discharge follow-up Dr. [place] Ruelas [address] [facility] [address] [facility] [address] Schedule an appointment as soon as [...] mg per tablet aka: NORCO . Disposition: residential Condition: Stable Code Status: Full Code Discharge [...] numbness Complications from anesthesia Date Last Reviewed: 08/20/201519995626-2843 [employer]. [address] [place] [address]. All righ ts reserved. This information is [...] [place] PA-C - 04/21/2019 8:21 AM PST [facility] Service: Vascular Surgery Progress Note SUBJECTIVE Patient Summary: 74 y.o. man with complex medical issues and LE ischemic ulcers, he wa s recently admitted to the [facility] from 03/28/19 to 04/04/19 where he was treated/ diagnosed with systolic heart failure, type 2 ME/NSTEMI, SHAE, ARF. O2 desaturation brought him from SNF to [facility] and current admission today with CHF and [...] Anaya RN - 04/20/2019 4:40 PM PST [facility] Service: Wound Care Follow Up Note [...] Primary Wound Type: Diabetic Ulcer Side: Left [place] ation: lateral Location: foot Wound Subtype: ulceration, [...] M D - 04/20/2019 2:16 PM PST [facility] Service: Hospitalist Progress Note Pt: Reagan [...] hematuria. Recent history notable for admit to [facility] from 03/28/19 to 04/04/2019 for CHF exacerbation with eventual dischar ge to [facility]. He then re-presented to same hospital [...] encounter as of 04/20/19-14:16 IMAGING: Reviewed in [facility], no new results. PROBLEM LIST [...] Received 8 days of IV antibiotics at [facility] discharged home on with augmentin, now readmitted on 04/06 at [facility] and started on rocephin after [...] SQH Code status: Full Dispo: back to [facility] pending recovery from vascular bypass surgery (okay [...] as indicated. Thank You, Sunshine Love, PharmD, [facility] 04/20/19 1:52 PM Nandini Sánchez se, MD - 04/20/2019 8:56 AM PST [facility] Service: Infectious Diseases Progress Note Hospital [...] Component Value Units Date/Time Culture, Wound, Superficial [[id number]] (Abnormal) (Susceptibility) Collected: 04/06/191545 Order Status: Completed Lab Status: Final result Updated: 04/11/19 0728 Specimen: Body Fluid from Heel, Right Special Requests LT FOOT Special Requests Testing performed at [facility];[address] [place] [address] RESULT -- 1+ ENTEROCOCCUS FAECALIS Aminoglycosides (except [...] Sensitive SUSCEPTIBLE JESSICA Final Testing performed at [facility], [address] [place] [address] Culture, Wound, Superficial [[id number]] Collected: 04/06/191545 Order Status: Completed Lab Status: Final result Updated: 04/08/19 0937 Specimen: Body Fluid from Heel, Right Special Requests RIGHT FOOT Special Requests Testing performed at [facility];[address] [place] [address] RESULT -- 1+ NORMAL SKIN CELSA ISOLATED RESULT NO FURTHER WORKUP RESULT Testing performed at [facility], [address] [place] [address] Comment: Testing performed at [facility], [address] [place] [address] Microbiology Results (72 hrs) No results found [...] assisting with dosing and monitorization. Discussed with oil field caser regarding OPAT. Discussed with oil field caser regarding discharge planning. Dr. Dolan will take over ID service tomorrow. Please call if questions. Hero Richardson MD, MPH Infectious Diseases 04/20/19 ubbard, Sheila Diallo RN - 04/19/2019 7:20 PM PSTEnd of shift chart check complete. Shiela Cabrera RN unshine Love, [facility] - 04/19/2019 3:23 PM [...] to SHAE protocol. Dose already given t zhoaib, will keep plan to check level tomorrow afternoon and continue to monitor urine output and serum creatinine. Plan for level: 04/20 @1300 Pharmacy will continue to follow and make adjustments to vancomycin therapy as indicated. Thank You, Sunshine Love, PharmD, BCCCP 04/19/19 3:21 PM Grover Shaver MD - 04/19/2019 2:46 PM PST [facility] Service: Hospitalist Progress Note Pt: Reagan Shepard AGE/SEX: 74 y.o. male ROOM: [facility]/9119- : 1945 PCP: Jamar Manuel MD ADMIT DATE: 04/06/2019 TODAY'S DATE: 04/19/2019 Hospital Day/Hospital Course: LOS: 13 days Mr. Shepard is a 74-year-old gentleman with a history of bilateral nonhealing diabetic trisha t ulcers, and history of TBI, stroke, insulin dependent DM, who presents with CHF exacerbati on with hospital course complicated by gross hematuria. Recent history notable for admit to [facility] from 03/28/19 to 04/04/2019 for CHF exacerbation with eventual dischar ge to [facility]. He then re-presented to same hospital [...] Received 8 days of IV antibiotics at [facility] discharged home on with augmentin, now readmitted on 04/06 at [facility] and started on rocephin after [...] SQH Code status: Full Dispo: back to [facility] pending recovery from vascular bypass surgery, final ID recs , tentatively planning for ~04/21 Grover Charles MD 2:46 PM 04/19/2019 Portions of this chart may have been copied from previous notes for continuity of care purp ose Hero Sánchez MD - 04/19/2019 9:53 AM PSTFormatting of this note might be different from the [facility] Service: Infectious Diseases Progress Note Hospital Day: [...] Component Value Units Date/Time Culture, Wound, Superficial [[id number]] (Abnormal) (Susceptibility) Collected: 04/06/19 1546 Order Status: Completed Lab Status: Final result Updated: 04/11/19 0728 Specimen: Body Fluid from Heel, Right Special Requests LT FOOT Special Requests Testing performed at [facility];[address] [place] [address];[place] [address] RESULT -- 1+ ENTEROCOCCUS FAECALIS Aminoglycosides (except [...] Resistant RESISTANT JESSICA Final Vancomycin Sensitive SUSCEPTIBLE EJSSICA Final Testing performed at [facility], [address] [place] [address] Culture, Wound, Superficial [[id number]] Collected: 04/06/19 1546 Order Status: Completed Lab Status: Final result Updated: 04/08/1937 Specimen: Body Fluid from Heel, Right Special Requests RIGHT FOOT Special Requests Testing performed at [facility];[address] [place] [address] RESULT -- 1+ NORMAL SKIN CELSA ISOLATED RESULT NO FURTHER WORKUP RESULT Testing performed at [facility], [address] [place] [address] Comment: Testing performed at [facility], [address] [place] [address] Culture, Blood [[id number]] Collected: 04/06/198 Order Status: Completed Lab Status: Final result Updated: 04/12/19 0652 Specimen: Peripheral Blood Special Requests R WRIST Special Requests Testing performed at [facility];[address] [place] [address] RESULT NO GROWTH 6 DAYS RESULT Testing performed at [facility], [address] [place] [address] Comment: Testing performed at [facility], [address] [place] [address] Culture, Blood [[id number]] Collected: 04/06/19330 Order Status: Completed Lab Status: Final result Updated: 04/12/1952 Specimen: Peripheral Blood Special Requests L WRIST Special Requests Testing performed at [facility];[address] [place] [address] RESULT NO GROWTH 6 DAYS RESULT Testing performed at [facility], [address] [place] [address] Comment: Testing performed at [facility], [address] [place] [address] Microbiology Results (72 hrs) No results found [...] might be different from the o riginal. [facility] Service: Vascular Surgery Progress Note SUBJECTIVE Patient Summary: 74 y.o. man with complex medical issues and LE ischemic ulcers, he wa s recently admitted to the [facility] from 03/28/19 to 04/04/19 where he was treated/ diagnosed with systolic heart failure, type 2 ME/NSTEMI, SHAE, ARF. O2 desaturation brought him from SNF to [facility] and current admission today with CHF and [...] Rachel Altamirano RN - 04/19/2019 5:46 AM [id number] left foot dressing change complete per order. [...] Grover Shaver MD - 4:52 PM PST [facility] Service: Hospitalist Progress Note Pt: Reagan Shepard AGE/SEX: 74 y.o. male ROOM: [facility] OR INTRA OP POOL/[facility]* : 1945 PCP: Jamar Manuel MD ADMIT DATE: 04/06/2019 TODAY'S DATE: 04/18/2019 Hospital Day/Hospital Course: LOS: 12 days Mr. Shepard is a 74-year-old gentleman with a history of bilateral nonhealing diabetic trisha t ulcers, and history of TBI, stroke, insulin dependent DM, who presents with CHF exacerbati on with hospital course complicated by gross hematuria. Recent history notable for admit to [facility] from 03/28/19 to 04/04/2019 for CHF exacerbation with eventual dischar ge to [facility]. He then re-presented to same hospital [...] the last 72 hours. IMAGING: Reviewed in [facility], no new results. PROBLEM LIST [...] Received 8 days of IV antibiotics at [facility] discharged home on with augmentin, now readmitted on 04/06 at [facility] and started on rocephin after [...] SQH Code status: Full Dispo: back to [facility] pending cardiac evaluation/optimization, vascular bypass donna wero, [...] as indicated. Thank You, Sunshine Love, PharmD, [facility] 04/18/19 2:45 PM Syed López PTA - [...] might be different from t kevin original. [facility] Service: Infectious Diseases Progress Note Hospital [...] Component Value Units Date/Time Culture, Wound, Superficial [[id number]] (Abnormal) (Susceptibility) Collected: 04/06/19 1546 Order Status: Completed Lab Status: Final result Updated: 04/11/19 0728 Specimen: Body Fluid from Heel, Right Special Requests LT FOOT Special Requests Testing performed at [facility];[address] [place] [address];[place] [address] RESULT -- 1+ ENTEROCOCCUS FAECALIS Aminoglycosides (except [...] Sensitive SUSCEPTIBLE JESSICA Final Testing performed at [facility], [address] [place] [address] Culture, Wound, Superficial [[id number]] Collected: 04/06/19 1546 Order Status: Completed Lab Status: Final result Updated: 04/08/19 0937 Specimen: Body Fluid from Heel, Right Special Requests RIGHT FOOT Special Requests Testing performed at [facility];[address] [place] [address] RESULT -- 1+ NORMAL SKIN CELSA ISOLATED RESULT NO FURTHER WORKUP RESULT Testing performed at [facility], [address] [place] [address] Comment: Testing performed at [facility], [address] [place] [address] Culture, Blood [[id number]] Collected: 04/06/19 0338 Order Status: Completed Lab Status: Final result Updated: 04/12/19 0652 Specimen: Peripheral Blood Special Requests R WRIST Special Requests Testing performed at [facility];[address] [place] [address] RESULT NO GROWTH 6 DAYS RESULT Testing performed at [facility], [address] [place] [address] Comment: Testing performed at [facility], [address] [place] [address]94 Culture, Blood [[id number]] Collected: 04/06/19 0331 Order Status: Completed Lab Status: Final result Updated: 04/12/19 0652 Specimen: Peripheral Blood Special Requests L WRIST Special Requests Testing performed at [facility];[address] [place] [address] 71383 RESULT NO GROWTH 6 DAYS RESULT Testing performed at [facility], [address] [place] [address] Comment: Testing performed at [facility], [address] [place] [address]127 Microbiology Results (72 hrs) No results found [...] might be different from the o riginal. [facility] Service: Vascular Surgery Progress Note SUBJECTIVE Patient Summary: 74 y.o. man with complex medical issues and LE ischemic ulcers, he wa s recently admitted to the [facility] from 03/28/19 to 04/04/19 where he was treated/ diagnosed with systolic heart failure, type 2 ME/NSTEMI, SHAE, ARF. O2 desaturation brought him from SNF to [facility] and current admission today with CHF and [...] of shift chart check review Sunshine Chen [facility] - 04/17/2019 1:38 PM [...] as indicated. Thank You, Sunshine Love, PharmD, [facility] 04/17/19 1:38 PM Grover Shaver MD - 04/17/2019 12:25 PM PST [facility] Service: Hospitalist Progress Note Pt: Reagan Shepard AGE/SEX: 74 y.o. male ROOM: [facility]-01 : 1945 PCP: Jamar Manuel MD ADMIT DATE: 04/06/2019 TODAY'S DATE: 04/17/2019 Hospital Day/Hospital Course: LOS: 11 days Mr. Shepard is a 74-year-old gentleman with a history of bilateral nonhealing diabetic trisha t ulcers, and history of TBI, stroke, insulin dependent DM, who presents with CHF exacerbati on with hospital course complicated by gross hematuria. Recent history notable for admit to [facility] from 03/28/19 to 04/04/2019 for CHF exacerbation with eventual dischar ge to [facility]. He then re-presented to same hospital [...] Received 8 days of IV antibiotics at [facility] discharged home on with augmentin, now readmitted on 04/06 at [facility] and started on rocephin after [...] SQH Code status: Full Dispo: back to [facility] pending cardiac evaluation/optimization, vascular bypass donna wero, final ID recs, tentatively planning for ~04/21 Grover Charles MD 12:25 PM 04/17/2019 Portions of this chart may have been copied from previous notes for continuity of care purp ose Rico Modi MD - 11:19 AM PST [facility] Service: Cardiology/[facility] Interventional cardiology note RE: Reagan Sheaprd : 1945 DATE OF SERVICE: 04/06/2019 PROVIDER:Rico [...] minimal reversib ility 2. Recent non-Q wave ME 3. Severe peripheral vascular disease 4. Diabetes [...] this note might be different from the [facility] Service: Infectious Diseases Progress Note Hospital Day: [...] Component Value Units Date/Time Culture, Wound, Superficial [[id number]] (Abnormal) (Susceptibility) Collected: 04/06/19 1546 Order Status: Completed Lab Status: Final result Updated: 04/11/19 0728 Specimen: Body Fluid from Heel, Right Special Requests LT FOOT Special Requests Testing performed at [facility];[address] [place] [address];[place] [address] RESULT -- 1+ ENTEROCOCCUS FAECALIS Aminoglycosides (except [...] Sensitive SUSCEPTIBLE JESSICA Final Testing performed at [facility], [address] [place] [address]67 Culture, Wound, Superficial [[id number]] Collected: 04/06/19 1546 Order Status: Completed Lab Status: Final result Updated: 04/08/19936 Specimen: Body Fluid from Heel, Right Special Requests RIGHT FOOT Special Requests Testing performed at [facility];[address] [place] [address] RESULT -- 1+ NORMAL SKIN CELSA ISOLATED RESULT NO FURTHER WORKUP RESULT Testing performed at [facility], [address] [place] [address] Comment: Testing performed at [facility], [address] [place] [address]200 Culture, Blood [[id number]] Collected: 04/06/198 Order Status: Completed Lab Status: Final result Updated: 04/12/1952 Specimen: Peripheral Blood Special Requests R WRIST Special Requests Testing performed at [facility];[address] [place] [address]58 RESULT NO GROWTH 6 DAYS RESULT Testing performed at [facility], [address] [place] [address] Comment: Testing performed at [facility], [address] [place] [address]011 Culture, Blood [[id number]] Collected: 04/06/191 Order Status: Completed Lab Status: Final result Updated: 04/12/1952 Specimen: Peripheral Blood Special Requests L WRIST Special Requests Testing performed at [facility];[address] [place] [address] 40197 RESULT NO GROWTH 6 DAYS RESULT Testing performed at [facility], [address] [place] [address] Comment: Testing performed at [facility], [address] [place] [address] Microbiology Results (72 hrs) No results found [...] might be different from the o riginal. [facility] Service: Vascular Surgery Progress Note SUBJECTIVE Patient Summary: 74 y.o. man with complex medical issues and LE ischemic ulcers, he wa s recently admitted to the [facility] from 03/28/19 to 04/04/19 where he was treated/ diagnosed with systolic heart failure, type 2 ME/NSTEMI, SHAE, ARF. O2 desaturation brought him from SNF to [facility] and current admission today with CHF and [...] Bhanu Seaman PA-C Vascular Surgery arrar, Ambrosio Tsyon MD - 04/16/2019 7:41 PM PSTFormatting of [...] Sánchez MD - 04/16/2019 6:49 PM PST [facility] Service: Infectious Diseases Progress Note Hospital [...] Component Value Units Date/Time Culture, Wound, Superficial [[id number]] (Abnormal) (Susceptibility) Collected: 04/06/19 1546 Order Status: Completed Lab Status: Final result Updated: 04/11/19 9728 Specimen: Body Fluid from Heel, Right Special Requests LT FOOT Special Requests Testing performed at [facility];[address] [place] [address] RESULT -- 1+ ENTEROCOCCUS FAECALIS Aminoglycosides (except [...] Sensitive SUSCEPTIBLE JESSICA Final Testing performed at [facility], [address] [place] [address]99 Culture, Wound, Superficial [[id number]] Collected: 04/06/19 1546 Order Status: Completed Lab Status: Final result Updated: 04/08/19 0937 Specimen: Body Fluid from Heel, Right Special Requests RIGHT FOOT Special Requests Testing performed at [facility];[address] [place] [address] RESULT -- 1+ NORMAL SKIN CELSA ISOLATED RESULT NO FURTHER WORKUP RESULT Testing performed at [facility], [address] [place] [address] Comment: Testing performed at [facility], [address] [place] [address]68 Culture, Blood [[id number]] Collected: 04/06/19 0338 Order Status: Completed Lab Status: Final result Updated: 04/12/19 0652 Specimen: Peripheral Blood Special Requests R WRIST Special Requests Testing performed at [facility];[address] [place] [address]160 RESULT NO GROWTH 6 DAYS RESULT Testing performed at [facility], [address] [place] [address] Comment: Testing performed at [facility], [address] [place] [address]94 Culture, Blood [[id number]] Collected: 04/06/19 0331 Order Status: Completed Lab Status: Final result Updated: 04/12/19 0652 Specimen: Peripheral Blood Special Requests L WRIST Special Requests Testing performed at [facility];[address] [place] [address]40 RESULT NO GROWTH 6 DAYS RESULT Testing performed at [facility], [address] [place] [address] Comment: Testing performed at [facility], [address] [place] [address]37 Microbiology Results (72 hrs) No results found [...] note might be different from the original. [facility] Service: Hospitalist Progress Note Pt: Reagan [...] hematuria. Recent history notable for admit to [facility] from 03/28/19 to 04/04/2019 for CHF exacerbation with eventual dischar ge to [facility]. He then re-presented to same hospital [...] 04/14/19 0629 BNP 587.58* IMAGING: Reviewed in [facility], no new results. PROBLEM LIST [...] Received 8 days of IV antibiotics at [facility] discharged home on with augmentin, now readmitted on 04/06 at [facility] and started on rocephin after [...] SQH Code status: Full Dispo: back to [facility] pending cardiac evaluation/optimization, vascular bypass donna wero, [...] Rodrigez RD 04/16/2019 3:21 PM Sunshine Chen, [facility] [facility] - 04/16/2019 12:18 PM [...] Patient encouraged to discuss medication changes with shells inspector ragini stanley to stopping medications or making any changes. Patient's questions answered. Heart Fail ure Hot Line number provided to patient. Face to face time was spent with patient providing counseling and education for congestive heart failure. Bhanu Wakefield P A-C - 04/16/2019 8:43 AM PST [facility] Service: Vascular Surgery Progress Note SUBJECTIVE Patient Summary: 74 y.o. man with complex medical issues and LE ischemic ulcers, he wa s recently admitted to the [facility] from 03/28/19 to 04/04/19 where he was treated/ diagnosed with systolic heart failure, type 2 ME/NSTEMI, SHAE, ARF. O2 desaturation brought him from SNF to [facility] and current admission today with CHF and [...] MD - 04/15/2019 1 2:48 PM PST [facility] Service: Hospitalist Progress Note Pt: Reagan Shepard AGE/SEX: 74 y.o. male ROOM: [address] [place], [place] [address]- : 1945 PCP: Jamar Manuel MD ADMIT DATE: 04/06/2019 TODAY'S DATE: 04/15/2019 Hospital Day/Hospital Course: LOS: 9 days Mr. Shepard is a 74-year-old gentleman with a history of bilateral nonhealing diabetic trisha t ulcers, and history of TBI, stroke, insulin dependent DM, who presents with CHF exacerbati on with hospital course complicated by gross hematuria. Recent history notable for admit to [facility] from 03/28/19 to 04/04/2019 for CHF exacerbation with eventual dischar ge to [facility]. He then re-presented to same hospital [...] 04/14/19 0629 BNP 587.58* IMAGING: Reviewed in [facility], no new results. PROBLEM LIST [...] risk stratification . -cardiology consulted -[place] at [place] for nuc med stress test in morning [...] Received 8 days of IV antibiotics at [facility] discharged home on with augmentin, now readmitted on 04/06 at [facility] and started on rocephin after [...] SQH Code status: Full Dispo: back to [facility] pending cardiac evaluation/optimization, vascular bypass donna wero, final ID recs, likely 4-5 more days in hospital Grover Charles MD 12:48 PM 04/15/2019 Portions of this chart may have been copied from previous notes for continuity of care purp ose roctor, Sheila Brown [facility] - 04/15/2019 10:55 AM [...] might be differ ent from the original. [facility] Service: Infectious Diseases Progress Note Hospital [...] Biplane EF 53 % LV ED Volume (Bekcett's) 126.35 ml LV ED Volume Index 80 [...] Component Value Units Date/Time Culture, Wound, Superficial [[id number]] (Abnormal) (Susceptibility) Collected: 04/06/191545 Order Status: Completed Lab Status: Final result Updated: 04/11/19 0728 Specimen: Body Fluid from Heel, Right Special Requests LT FOOT Special Requests Testing performed at [facility];[address] [place] [address] RESULT -- 1+ ENTEROCOCCUS FAECALIS Aminoglycosides (except [...] Sensitive SUSCEPTIBLE JESSICA Final Testing performed at [facility], [address] [place] [address] 43696 Culture, Wound, Superficial [[id number]] Collected: 04/06/191545 Order Status: Completed Lab Status: Final result Updated: 04/08/19 0937 Specimen: Body Fluid from Heel, Right Special Requests RIGHT FOOT Special Requests Testing performed at [facility];[address] [place] [address] 43480 RESULT -- 1+ NORMAL SKIN CELSA ISOLATED RESULT NO FURTHER WORKUP RESULT Testing performed at [facility], [address] [place] [address] Comment: Testing performed at [facility], [address] [place] [address] 58077 Culture, Blood [[id number]] Collected: 04/06/19 0338 Order Status: Completed Lab Status: Final result Updated: 04/12/1952 Specimen: Peripheral Blood Special Requests R WRIST Special Requests Testing performed at [facility];[address] [place] [address] 21457 RESULT NO GROWTH 6 DAYS RESULT Testing performed at [facility], [address] [place] [address] Comment: Testing performed at [facility], [address] [place] [address] 16488 Culture, Blood [[id number]] Collected: 04/06/19330 Order Status: Completed Lab Status: Final result Updated: 04/12/1952 Specimen: Peripheral Blood Special Requests L WRIST Special Requests Testing performed at [facility];[address] [place] [address] 07773 RESULT NO GROWTH 6 DAYS RESULT Testing performed at [facility], [facility] [place] [address] Comment: Testing performed at [facility], [address] [place] [address] 24501 Microbiology Results (72 hrs) No results found [...] note might be different from the origin [facility] Service: Hospitalist Progress Note Pt: Reagan Shepard [...] hematuria. Recent history notable for admit to [facility] from 03/28/19 to 04/04/2019 for CHF exacerbation with eventual dischar ge to [facility]. He then re-presented to same hospital [...] 04/14/19 0629 BNP 587.58* IMAGING: Reviewed in [facility], no new results. PROBLEM LIST [...] Received 8 days of IV antibiotics at [facility] discharged home on with augmentin, now readmitted on 04/06 at [facility] and started on rocephin after [...] H Code status: Full Dispo: back to [facility] pending improvement in gross hematuria, CHF exacerbation, re peat angiogram, final ID recs, likely 4-5 more days in hospital Grover Charles MD 1:29 PM 04/14/2019 Portions of this chart may have been copied from previous notes for continuity of care purp ose Lyric Molina RN - 04/14/2019 1:27 PM PST [facility] Service: Wound Care Follow Up Note [...] any additional questions. Lyric Mclain RN, CMSRN, [facility] Inpatient Wound Ostomy Care [phone] 04/14/2019 1:29 PM Dheeraj Barraza, PT - [...] vs stable.Vandana Luciano RN obrandi, Meghan Wolff, [facility] - 04/14/2019 6:31 AM [...] Shaver MD - 04/13/2019 4:02 PM PST [facility] Service: Hospitalist Progress Note Pt: Reagan Shepard AGE/SEX: 74 y.o. male ROOM: [facility]2/4452-01 : 1945 PCP: Jamar Manuel MD ADMIT DATE: 04/06/2019 TODAY'S DATE: 04/13/2019 Hospital Day/Hospital Course: LOS: 7 days Mr. Shepard is a 74-year-old gentleman with a history of bilateral nonhealing diabetic trisha t ulcers, and history of TBI, stroke, insulin dependent DM, who presents with CHF exacerbati on with hospital course complicated by gross hematuria. Recent history notable for admit to [facility] from 03/28/19 to 04/04/2019 for CHF exacerbation with eventual dischar ge to [facility]. He then re-presented to same hospital [...] the last 168 hours. IMAGING: Reviewed in [facility], no new results. PROBLEM LIST [...] Received 8 days of IV antibiotics at [facility] discharged home on with augmentin, now readmitted on 04/06 at [facility] and started on rocephin after [...] with age appropriate cancer screening PPx: [facility] Code status: Full Dispo: back to [facility] pending improvement in gross hematuria, CHF exacerbation, [...] 113.3 kg Adjusted body weight: 89.1 kg [place] body weight: 73 kg Current Vital Signs: [...] patient being away at a [facility]. Drawing a level once the patient returns [...] se, MD - 04/13/2019 10:54 AM PST [facility] Service: Infectious Diseases Progress Note Hospital [...] Component Value Units Date/Time Culture, Wound, Superficial [[id number]] (Abnormal) (Susceptibility) Collected: 04/06/19 1546 Order Status: Completed Lab Status: Final result Updated: 04/11/19 0728 Specimen: Body Fluid from Heel, Right Special Requests LT FOOT Special Requests Testing performed at [facility];[address] [place] [address];[place] [address] RESULT -- 1+ ENTEROCOCCUS FAECALIS Aminoglycosides (except [...] Sensitive SUSCEPTIBLE JESSICA Final Testing performed at [facility], [address] [place] [address] 68519 Culture, Wound, Superficial [[id number]] Collected: 04/06/19 1546 Order Status: Completed Lab Status: Final result Updated: 04/08/19936 Specimen: Body Fluid from Heel, Right Special Requests RIGHT FOOT Special Requests Testing performed at [facility];[address] [place] [address] 21480 RESULT -- 1+ NORMAL SKIN CELSA ISOLATED RESULT NO FURTHER WORKUP RESULT Testing performed at [facility], [address] [place] [address] 115[address] Comment: Testing performed at [facility], [address] [place] [address] 75270 Culture, Blood [[id number]] Collected: 04/06/198 Order Status: Completed Lab Status: Final result Updated: 04/12/19651 Specimen: Peripheral Blood Special Requests R WRIST Special Requests Testing performed at [facility];[address] [place] [address] 73132 RESULT NO GROWTH 6 DAYS RESULT Testing performed at [facility], [address] [place] [address] Comment: Testing performed at [facility], [address] [place] [address] 45100 Culture, Blood [[id number]] Collected: 04/06/19 033 Order Status: Completed Lab Status: Final result Updated: 04/12/19651 Specimen: Peripheral Blood Special Requests L WRIST Special Requests Testing performed at [facility];[address] [place] [address] 61719 RESULT NO GROWTH 6 DAYS RESULT Testing performed at [facility], [address] [place] [address] 12357 Comment: Testing performed at [facility], [address] [place] [address] 46403 Microbiology Results (72 hrs) No results found [...] might be different from the o riginal. [facility] Service: Vascular Surgery Progress Note SUBJECTIVE Patient Summary: 74 y.o. man with complex medical issues and LE ischemic ulcers, he wa s recently admitted to the [facility] from 03/28/19 to 04/04/19 where he was treated/ diagnosed with systolic heart failure, type 2 ME/NSTEMI, SHAE, ARF. O2 desaturation brought him from SNF to [facility] and current admission today with CHF and [...] risks. Signed consent obtained. Will proceed to [facility] Banking Services Clerk today for right leg angiogram. Moderate Sedation [...] might be different from the o riginal. [facility] Service: Infectious Diseases Progress Note Hospital [...] Component Value Units Date/Time Culture, Wound, Superficial [[id number]] (Abnormal) (Susceptibility) Collected: 04/06/19 1546 Order Status: Completed Lab Status: Final result Updated: 04/11/19 0728 Specimen: Body Fluid from Heel, Right Special Requests LT FOOT Special Requests Testing performed at [facility];[address] [place] [address] 42177 RESULT -- 1+ ENTEROCOCCUS FAECALIS Aminoglycosides (except [...] Sensitive SUSCEPTIBLE JESSICA Final Testing performed at [facility], [address] [place] [address] 37803 Culture, Wound, Superficial [[id number]] Collected: 04/06/19 1546 Order Status: Completed Lab Status: Final result Updated: 04/08/19 0937 Specimen: Body Fluid from Heel, Right Special Requests RIGHT FOOT Special Requests Testing performed at [facility];[address] [place] [address] 18680 RESULT -- 1+ NORMAL SKIN CELSA ISOLATED RESULT NO FURTHER WORKUP RESULT Testing performed at [facility], [address] [place] [address] Comment: Testing performed at [facility], [address] [place] [address] 56506 Culture, Blood [[id number]] Collected: 04/06/19 0338 Order Status: Completed Lab Status: Final result Updated: 04/12/19 0652 Specimen: Peripheral Blood Special Requests R WRIST Special Requests Testing performed at [facility];[address] [place] [address] 02804 RESULT NO GROWTH 6 DAYS RESULT Testing performed at [facility], [address] [place] [address] Comment: Testing performed at [facility], [address] [place] [address] 79557 Culture, Blood [[id number]] Collected: 04/06/19 0331 Order Status: Completed Lab Status: Final result Updated: 04/12/1952 Specimen: Peripheral Blood Special Requests L WRIST Special Requests Testing performed at [facility];[address] [place] [address] 29427 RESULT NO GROWTH 6 DAYS RESULT Testing performed at [facility], [address] [place] [address] Comment: Testing performed at [facility], [address] [place] [address] 31378 Microbiology Results (72 hrs) No results found [...] note might be different from the [facility] Service: Hospitalist Progress Note Pt: Reagan [...] hematuria. Recent history notable for admit to [facility] from 03/28/19 to 04/04/2019 for CHF exacerbation with eventual dischar ge to [facility]. He then re-presented to same hospital [...] Received 8 days of IV antibiotics at [facility] discharged home on with augmentin, now readmitted on 04/06 at [facility] and started on rocephin after [...] H Code status: Full Dispo: back to [facility] pending improvement in gross hematuria, CHF exacerbation, re peat angiogram, final ID recs, likely 4-5 more days in hospital Grover Charles MD 4:43 PM 04/12/2019 Portions of this chart may have been copied from previous notes for continuity of care purp ose Bhanu Wakefield PA-C - 04/12/2019 4:00 PM PST [facility] Service: Vascular Surgery Progress Note SUBJECTIVE Patient Summary: 74 y.o. man with complex medical issues and LE ischemic ulcers, he wa s recently admitted to the [facility] from 03/28/19 to 04/04/19 where he was treated/ diagnosed with systolic heart failure, type 2 ME/NSTEMI, SHAE, ARF. O2 desaturation brought him from SNF to [facility] and current admission today with CHF and [...] Bhanu Seaman PA-C Vascular Surgery Sunshine Chen, [facility] - 04/12/2019 12:27 PM PST Vancomycin Dosing Per Pharmacy Subjective/Objective Reagan Shepard is a 74 y.o. 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 Additional antimicrobials: zosyn Quadriplegic/Paraplegic: no Diabetes: yes Baseline Serum Creatinine: 0.6 mg/dL Actual weight: 113.3 kg Adjusted body weight: 89.1 kg [place] body weight: 73 kg Current Vital Signs: [...] as indicated. Thank You, Sunshine Love, PharmD, [facility] 04/12/19 3:27 PM Grover Shaver MD - 04/11/2019 5:06 PM PST [facility] Service: Hospitalist Progress Note Pt: Reagan [...] hematuria. Recent history notable for admit to [facility] from 03/28/19 to 04/04/2019 for CHF exacerbation with eventual dischar ge to [facility]. He then re-presented to same hospital [...] INR 1.2 PTT 34* IMAGING: Reviewed in [facility], no new results. PROBLEM LIST [...] Received 8 days of IV antibiotics at [facility] discharged home on with augmentin, now readmitted on 04/06 at [facility] and started on rocephin after [...] above) Code status: Full Dispo: back to [facility] pending improvement in gross hematuria and CHF exacerbation Grover Charles MD 5:06 PM 04/11/2019 Portions of this chart may have been copied from previous notes for continuity of care purp ose roctor, Sheila Brown [facility] - 04/11/2019 2:03 PM PST Vancomycin Dosing Per Pharmacy Subjective/Objective Reagan Shepard is a 74 y.o. 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 Additional antimicrobials: zosyn Quadriplegic/Paraplegic: no Diabetes: yes Baseline Serum Creatinine: 0.6 mg/dL Actual weight: 113.3 kg Adjusted body weight: 89.1 kg [place] body weight: 73 kg Current Vital Signs: [...] nomogram, current renal function, and desired trough. [facility] ed on patient history, vancomycin 1250 [...] therapy as indicated. Thank You, Sheila Ahuja, [facility], 04/11/2019, 1:51 PM Hero Sánchez MD - 04/11/2019 10:09 AM PSTFormatting of this note might be different from stephanie brown original. [facility] Service: Infectious Diseases Progress Note Hospital [...] Component Value Units Date/Time Culture, Wound, Superficial [[id number]] (Abnormal) (Susceptibility) Collected: 04/06/19 1546 Order Status: Completed Lab Status: Final result Updated: 04/11/1928 Specimen: Body Fluid from Heel, Right Special Requests LT FOOT Special Requests Testing performed at [facility];[address] [place] [address];[place] [address] RESULT -- 1+ ENTEROCOCCUS FAECALIS Aminoglycosides (except [...] Sensitive SUSCEPTIBLE JESSICA Final Testing performed at [facility], [address] [place] [address], [place] [address] Culture, Wound, Superficial [[id number]] Collected: 04/06/19 1546 Order Status: Completed Lab Status: Final result Updated: 04/08/19 0937 Specimen: Body Fluid from Heel, Right Special Requests RIGHT FOOT Special Requests Testing performed at [facility];[address] [place] [address] 10676 RESULT -- 1+ NORMAL SKIN CELSA ISOLATED RESULT NO FURTHER WORKUP RESULT Testing performed at [facility], [address] [place] [address] 10998 Comment: Testing performed at [facility], [address] [place] [address] 47475 Culture, Blood [[id number]] Collected: 04/06/19 0338 Order Status: Completed Lab Status: Preliminary result Updated: 04/07/19 0813 Specimen: Peripheral Blood Special Requests R WRIST Special Requests Testing performed at [facility];[address] [place] [address] 96675 RESULT NO GROWTH AT THIS TIME RESULT Testing performed at [facility], [address] [place] [address] 01113 Comment: Testing performed at [facility], [address] [place] [address] 88904 Culture, Blood [[id number]] Collected: 04/06/19 0331 Order Status: Completed Lab Status: Preliminary result Updated: 04/07/19 0813 Specimen: Peripheral Blood Special Requests L WRIST Special Requests Testing performed at [facility];[address] [place] [address] 30681 RESULT NO GROWTH AT THIS TIME RESULT Testing performed at [facility], [address] [place] [address] 06083 Comment: Testing performed at [facility], [address] [place] [address] 16428 Microbiology Results (72 hrs) No results found [...] Shaver MD - 04/10/2019 4:51 PM PST [facility] Service: Hospitalist Progress Note Pt: Reagan Shepard AGE/SEX: 74 y.o. male ROOM: [facility]2/4452-01 : 1945 PCP: Jamar Manuel MD ADMIT DATE: 04/06/2019 TODAY'S DATE: 04/10/2019 Hospital Day/Hospital Course: LOS: 4 days Mr. Shepard is a 74-year-old gentleman with a history of bilateral nonhealing diabetic trisha t ulcers, and history of TBI, stroke, insulin dependent DM, who presents with CHF exacerbati on with hospital course complicated by gross hematuria. Recent history notable for admit to [facility] from 03/28/19 to 04/04/2019 for CHF exacerbation with eventual dischar ge to [facility]. He then re-presented to same hospital [...] INR 1.2 PTT 34* IMAGING: Reviewed in [facility], no new results. PROBLEM LIST [...] Received 8 days of IV antibiotics at [facility] discharged home on with augmentin, now readmitted on 04/06 at [facility] and started on rocephin after [...] above) Code status: Full Dispo: back to [facility] pending improvement in gross hematuria and CHF exacerbation Grover Charles MD 4:51 PM 04/10/2019 Portions of this chart may have been copied from previous notes for continuity of care purp ose Hero Sánchez MD - 04/10/2019 2:27 PM PSTFormatting of this note might be different from the [facility] Service: Infectious Diseases Progress Note Hospital Day: [...] Component Value Units Date/Time Culture, Wound, Superficial [[id number]] (Abnormal) (Susceptibility) Collected: 04/06/191545 Order Status: Completed Lab Status: Preliminary result Updated: 04/10/19 0966 Specimen: Body Fluid from Heel, Right Special Requests LT FOOT Special Requests Testing performed at [facility];[address] [place] [address];[place] [address] RESULT -- 1+ ENTEROCOCCUS FAECALIS Aminoglycosides (except for high-level resistance testing), cephalosporins, clindamycin, an d trimethoprim-sulfamethoxazole may appear active in vitro but they are not effective clinic ally. RESULT -- 1+ ENTEROBACTER CLOACAE COMPLEX RESULT -- 1+ STAPHYLOCOCCUS AUREUS RESULT SUSCEPTIBILITY TO FOLLOW RESULT Testing performed at [facility], [address] [place] [address] Susceptibility Enterococcus faecalis (1) Antibiotic Interpretation Microscan [...] Sensitive SUSCEPTIBLE JESSICA Preliminary Testing performed at [facility], [address] [place] [address] 36141 Culture, Wound, Superficial [[id number]] Collected: 04/06/191545 Order Status: Completed Lab Status: Final result Updated: 04/08/19936 Specimen: Body Fluid from Heel, Right Special Requests RIGHT FOOT Special Requests Testing performed at [facility];[address] [place] [address] 69005 RESULT -- 1+ NORMAL SKIN CELSA ISOLATED RESULT NO FURTHER WORKUP RESULT Testing performed at [facility], [address] [place] [address] 56187 Comment: Testing performed at [facility], [address] [place] [address] 66669 Culture, Blood [[id number]] Collected: 04/06/19337 Order Status: Completed Lab Status: Preliminary result Updated: 04/07/19812 Specimen: Peripheral Blood Special Requests R WRIST Special Requests Testing performed at [facility];[address] [place] [address] 01797 RESULT NO GROWTH AT THIS TIME RESULT Testing performed at [facility], [address] [place] [address] 54020 Comment: Testing performed at [facility], [address] [place] [address] 22633 Culture, Blood [[id number]] Collected: 04/06/19330 Order Status: Completed Lab Status: Preliminary result Updated: 04/07/19812 Specimen: Peripheral Blood Special Requests L WRIST Special Requests Testing performed at [facility];[address] [place] [address] 91168 RESULT NO GROWTH AT THIS TIME RESULT Testing performed at [facility], [address] [place] [address] 84495 Comment: Testing performed at [facility], [address] [place] [address] 53234 Microbiology Results (72 hrs) No results found [...] might be different from the ramiro melyssa. [facility] Service: Urology Progress Note Hospital Day: [...] of congestive failure. Signed by: Madison Solis [facility] Sign Date/Time: 04/09/2019 9:25 AM US Renal [...] essential h ypertension, insulin-dependent diabetes, history of ME, GERD, ischemic stroke, diffuse signi ficant peripheral [...] Lujan MD - 04/09/2019 6:21 PM PST [facility] Service: Urology Progress Note Hospital Day: LOS: 3 days Post-Op Day: * No surgery found * SUBJECTIVE Events Overnight: This 74-year-old gentleman with a known history of insulin-dependen t diabetes mellitus, advanced peripheral vascular disease, osteomyelitis of right foot, diab etic foot ulcers which are significant and advanced in both feet, left hemiparesis, essentia l hypertension, hyperkalemia, history of GERD and non-STEMI ME, history of bacteremia, histo ry of stroke. [...] Color, UA STRAW Clarity, UA CLEAR Specific [place], Urine 1.006 1.002 - 1.030 Leukocyte esterase, [...] there. Again, consider MRI Signed by: Madison Argueat Timothy Sign Date/Time: 04/07/2019 1:43 PM XR [...] note might be different from the [facility] Service: Vascular Surgery Progress Note SUBJECTIVE Patient Summary: 74 y.o. man with complex medical issues and LE ischemic ulcers, he wa s recently admitted to the [facility] from 03/28/19 to 04/04/19 where he was treated/ diagnosed with systolic heart failure, type 2 ME/NSTEMI, SHAE, ARF. O2 desaturation brought him from SNF to [facility] and current admission today with CHF and [...] will have him scheduled for 04/12/2019 at [facility] [employer] for his first leg, then will plan [...] Hospitalist Progress Note Reagan Shepard 74 y.o. [id number] male Jamar Manuel MD Hospital Day: LOS: 3 days Patient Summary: 74-year-old gentleman with past medical history of bilateral nonheali ng diabetic foot ulcer, and history of traumatic brain injury, stroke, diabetes mellitus typ e 2 insulin-dependent who was recently admitted to [facility] from 03/28/21 020 with acute hypoxic respiratory failure secondary to systolic CHF exacerbation with eject ion fraction of 40%, CTA chest negative for PE, troponin was minimally elevated 0.44 treated conservatively with medical therapy discharge to [facility] who went back to [facility] emergency department with worsening shortness of [...] 04/09/2019 1044 Gross per 24 hour Intake 75948 ml Output 9850 ml Net 856 ml [...] received 8 days of IV antibiotic at [facility] discharged home on on Augmentin readmitted on at [facility] and started on Rocephin after sending [...] might be different from the o riginal. [facility] Service: Podiatry Progress Note Hospital Day: LOS: 3 days Post-Op Day: * No surgery found * SUBJECTIVE Patient Summary: The patient is 74 y.o. male with significant cardiac and IDDM2 past medical history with recent admissions to [facility] where he was found to have el evated troponin level and he became decompensated and desaturated and was transferred to [facility] for a higher level of care. Although [...] Ady Mata RN - 04/08/2019 9:49 PM [id number]: pt a/o to all, vss. cbi in [...] Hospitalist Progress Note Reagan Shepard 74 y.o. [id number] male Jamar Manuel MD Hospital Day: LOS: 2 days Patient Summary: 74-year-old gentleman with past medical history of bilateral nonheali ng diabetic foot ulcer, and history of traumatic brain injury, stroke, diabetes mellitus typ e 2 insulin-dependent who was recently admitted to [facility] from 03/28/21 020 with acute hypoxic respiratory failure secondary to systolic CHF exacerbation with eject ion fraction of 40%, CTA chest negative for PE, troponin was minimally elevated 0.44 treated conservatively with medical therapy discharge to [facility] who went back to [facility] emergency department with worsening shortness of [...] results found for: POCTEMP, POCFIO2, POCPO2, BEART @[facility]@ PROBLEM LIST Principal Problem: Gross hematuria Active [...] received 8 days of IV antibiotic at [facility] discharged home on on Augmentin readmitted on at [facility] and started on Rocephin after sending [...] might be different from th e original. [facility] Service: Cardiology Progress Note Hospital Day: [...] Nandini Barboza RN - 04/07/2019 10:48 PM [id number]: pt a/o to all, occasionally forgetful, vss. [...] Hospitalist Progress Note Reagan Shepard 74 y.o. [id number] male Jamar Manuel MD Hospital Day: LOS: 1 day Patient Summary: 74-year-old gentleman with past medical history of bilateral nonheali ng diabetic foot ulcer, and history of traumatic brain injury, stroke, diabetes mellitus typ e 2 insulin-dependent who was recently admitted to [facility] from 03/28/21 020 with acute hypoxic respiratory failure secondary to systolic CHF exacerbation with eject ion fraction of 40%, CTA chest negative for PE, troponin was minimally elevated 0.44 treated conservatively with medical therapy discharge to [facility] who went back to [facility] emergency department with worsening shortness of [...] received 8 days of IV antibiotic at [facility] discharged home on on Augmentin readmitted on at [facility] and started on Rocephin after sending [...] might be different from th tiffany original. [facility] Service: Cardiology Progress Note Hospital Day: [...] Andrés Novoa RN - 04/06/2019 10:15 AM [facility] Service: Wound/Ostomy Care Progress Note [...] | | | | | right foot ([facility]) | 04/20/2019 until | | | | | | 04/20/2020 | + +---------+--------+ + + | Comprehensive | Lab | Routin | Other | Weekly for 2 | | Metabolic Panel | | e | osteomyelitis of | Occurrences starting | | | | | right foot ([facility]) | 04/20/2019 until | | | | | | 04/20/2020 | + +---------+--------+ + + | C-Reactive Protein | Lab | Routin | Other | Weekly for 6 | | | | e | osteomyelitis of | Occurrences starting | | | | | right foot ([facility]) | 04/20/2019 until | | | | | | 04/20/2020 | + +---------+--------+ + + | Sedimentation Rate | Lab | Routin | Other | Weekly for 6 | | | | e | osteomyelitis of | Occurrences starting | | | | | right foot ([facility]) | 04/20/2019 until | | [...] 3.6 | 2.3 - 4.8 mg/dL | [facility] | | | | | | LABORATORY | | + + + + + + | Estimated | >60Comment: GFR <60: | >60 | [facility] | | | GFR | [...] | | | | | | MDRD IDPA traceable | | | | | | equation.Testing | | | | | | performed at [facility] | | | | | | [facility];[place], [place] | | | | | | [address] | | | | + + + + + + + + | Specimen | + + | Blood | + + + + + + + | Performing | Address | City/State/Zipcode | Phone Number | | Organization | | | | + + + + + | [facility] | [address] | [place] [address] | [phone] | + + + + + POC Glucose (04/21/2019 11:54 AM PST) + + + + + + | Component | Value | Ref Range | Performed | Pathologist | | | | | At | Signature | + + + + + + | Glucose, | 164 (H)Comment: Testing | 65 - 99 mg/dL | [facility] | | | POC | performed at [facility];[address] | | LABORATORY | | | | [address];[place] | | | | | | [address] | | | | + + + + + + + + | Specimen | + + | | + + + + + + + | Performing | Address | City/State/Zipcode | Phone Number | | Organization | | | | + + + + + | [facility] | [address] | [place] [address] | [phone] | + + + + + POC [...] | | | POC | performed at [facility];[address] | | LABORATORY | | | | [address];[place], [place] | | | | | | [address] | | | | + + + + + + + + | Specimen | + + | | + + + + + + + | Performing | Address | City/State/Zipcode | Phone Number | | Organization | | | | + + + + + | [facility] | [address] | [place] [address] | [phone] | + + + + + POC [...] | | | POC | performed at [facility];[address] | | LABORATORY | | | | [address];[place] | | | | | | [address] | | | | + + + + + + + + | Specimen | + + | | + + + + + + + | Performing | Address | City/State/Zipcode | Phone Number | | Organization | | | | + + + + + | [facility] | [address] | [place] [address] | [phone] | + + + + + POC Glucose (04/20/2019 9:08 PM PST) + + + + + + | Component | Value | Ref Range | Performed | Pathologist | | | | | At | Signature | + + + + + + | Glucose, | 157 (H)Comment: Testing | 65 - 99 mg/dL | [facility] | | | POC | performed at [facility];[address] | | LABORATORY | | | | [address];[place] | | | | | | [address] | | | | + + + + + + + + | Specimen | + + | | + + + + + + + | Performing | Address | City/State/Zipcode | Phone Number | | Organization | | | | + + + + + | [facility] | [address] | [place] [address] | [phone] | + + + + + POC [...] | | | POC | performed at [facility];[address] | | LABORATORY | | | | [address];[place], [place] | | | | | | [address] | | | | + + + + + + + + | Specimen | + + | | + + + + + + + | Performing | Address | City/State/Zipcode | Phone Number | | Organization | | | | + + + + + | [facility] | [address] | [place] [address] | [phone] | + + + + + POC Glucose (04/20/2019 5:04 PM PST) + + + + + + | Component | Value | Ref Range | Performed | Pathologist | | | | | At | Signature | + + + + + + | Glucose, | 199 (H)Comment: Testing | 65 - 99 mg/dL | [facility] | | | POC | performed at [facility];[address] | | LABORATORY | | | | [address];[place] | | | | | | [address] | | | | + + + + + + + + | Specimen | + + | | + + + + + + + | Performing | Address | City/State/Zipcode | Phone Number | | Organization | | | | + + + + + | [facility] | [address] | [place] [address] | [phone] | + + + + + POC Glucose (04/20/2019 12:44 PM PST) + + + + + + | Component | Value | Ref Range | Performed | Pathologist | | | | | At | Signature | + + + + + + | Glucose, | 273 (H)Comment: Testing | 65 - 99 mg/dL | [facility] | | | POC | performed at [facility];[address] | | LABORATORY | | | | [address];[place], [place] | | | | | | [address] | | | | + + + + + + + + | Specimen | + + | | + + + + + + + | Performing | Address | City/State/Zipcode | Phone Number | | Organization | | | | + + + + + | [facility] | [address] | [place] [address] | [phone] | + + + + + Vancomycin Level (04/20/2019 12:39 PM PST) + + + + + + | Component | Value | Ref Range | Performed | Pathologist | | | | | At | Signature | + + + + + + | Vancomycin | 18.3Comment: Testing | ug/mL | [facility] | | | Random, | performed at [facility];[address] | | LABORATORY | | | Serum | [address];[place], [place] | | | | | | [address] | | | | + + + + + + + + | Specimen | + + | Blood | + + + + + + + | Performing | Address | City/State/Zipcode | Phone Number | | Organization | | | | + + + + + | [facility] | [address] | [place] [address] | [phone] | + + + + + POC Glucose (04/20/2019 8:58 AM PST) + + + + + + | Component | Value | Ref Range | Performed | Pathologist | | | | | At | Signature | + + + + + + | Glucose, | 244 (H)Comment: Testing | 65 - 99 mg/dL | [facility] | | | POC | performed at [facility];[address] | | LABORATORY | | | | [address];[place] | | | | | | [address] | | | | + + + + + + + + | Specimen | + + | | + + + + + + + | Performing | Address | City/State/Zipcode | Phone Number | | Organization | | | | + + + + + | [facility] | [address] | [place] [address] | [phone] | + + + + + POC Glucose (04/20/2019 8:16 AM PST) + + + + + + | Component | Value | Ref Range | Performed | Pathologist | | | | | At | Signature | + + + + + + | Glucose, | 300 (H)Comment: Testing | 65 - 99 mg/dL | [facility] | | | POC | performed at [facility];[address] | | LABORATORY | | | | [address];[place] | | | | | | [address] | | | | + + + + + + + + | Specimen | + + | | + + + + + + + | Performing | Address | City/State/Zipcode | Phone Number | | Organization | | | | + + + + + | [facility] | [address] | [place] [address] | [phone] | + + + + + POC [...] | | | POC | performed at [facility];[address] | | LABORATORY | | | | [address];[place], [place] | | | | | | [address] | | | | + + + + + + + + | Specimen | + + | | + + + + + + + | Performing | Address | City/State/Zipcode | Phone Number | | Organization | | | | + + + + + | [facility] | [address] | [place] [address] | [phone] | + + + + + POC [...] | | | POC | performed at [facility];[address] | | LABORATORY | | | | [address];[place], [place] | | | | | | [address] | | | | + + + + + + + + | Specimen | + + | | + + + + + + + | Performing | Address | City/State/Zipcode | Phone Number | | Organization | | | | + + + + + | [facility] | [address] [facility] [address] | [place] [address] | [phone] | + + + + + POC [...] | | | POC | performed at [facility];[address] | | LABORATORY | | | | [address];[place], [place] | | | | | | [address] | | | | + + + + + + + + | Specimen | + + | | + + + + + + + | Performing | Address | City/State/Zipcode | Phone Number | | Organization | | | | + + + + + | [facility] | [address] | [place] [address] | [phone] | + + + + + POC Glucose (04/19/2019 8:13 AM PST) + + + + + + | Component | Value | Ref Range | Performed | Pathologist | | | | | At | Signature | + + + + + + | Glucose, | 176 (H)Comment: Testing | 65 - 99 mg/dL | [facility] | | | POC | performed at [facility];[address] | | LABORATORY | | | | [address];[place] | | | | | | [address] | | | | + + + + + + + + | Specimen | + + | | + + + + + + + | Performing | Address | City/State/Zipcode | Phone Number | | Organization | | | | + + + + + | [facility] | [address] | [place] [address] | [phone] | + + + + + Basic [...] 8.0 (L) | 8.5 - 10.5 | [facility] | | | | | mg/dL | LABORATORY | | + + + + + + | Estimated | >60Comment: GFR <60: | >60 | [facility] | | | GFR | [...] | | | | | | MDRD IDPA traceable | | | | | | equation.Testing | | | | | | performed at [facility], [address] | | | | | | [facility], | | | | | | [place] [address] | | | | + + + + + + + + | Specimen | + + | Blood | + + + + + + + | Performing | Address | City/State/Zipcode | Phone Number | | Organization | | | | + + + + + | [facility] | [address] | [place] [address] | [phone] | + + + + + CBC [...] [address] | | | | | | [facility], | | | | | | [place] [address] | | | | | |MICRO | | | | | |NORMAL PLT MORPH | | | | | |Testing performed at [facility], [address] [facility], [place] [address] | | | | | | | | | | + + +---- + + + + + | Specimen | + + | Blood | + + + + + + + | Performing | Address | City/State/Zipcode | Phone Number | | Organization | | | | + + + + + | [facility] | [address] | [place] [address] | [phone] | + + + + + POC [...] | | | POC | performed at [facility];[address] | | LABORATORY | | | | [address];[place], [place] | | | | | | [address] | | | | + + + + + + + + | Specimen | + + | | + + + + + + + | Performing | Address | City/State/Zipcode | Phone Number | | Organization | | | | + + + + + | [facility] | [address] | [place] [address] | [phone] | + + + + + POC Glucose (04/18/2019 9:02 PM PST) + + + + + + | Component | Value | Ref Range | Performed | Pathologist | | | | | At | Signature | + + + + + + | Glucose, | 295 (H)Comment: Testing | 65 - 99 mg/dL | [facility] | | | POC | performed at [facility];[address] | | LABORATORY | | | | [address];[place] | | | | | | [address] | | | | + + + + + + + + | Specimen | + + | | + + + + + + + | Performing | Address | City/State/Zipcode | Phone Number | | Organization | | | | + + + + + | [facility] | [address] | [place] [address] | [phone] | + + + + + POC Glucose (04/18/2019 8:01 PM PST) + + + + + + | Component | Value | Ref Range | Performed | Pathologist | | | | | At | Signature | + + + + + + | Glucose, | 245 (H)Comment: Testing | 65 - 99 mg/dL | [facility] | | | POC | performed at [facility];[address] | | LABORATORY | | | | [address];[place] | | | | | | [address] | | | | + + + + + + + + | Specimen | + + | | + + + + + + + | Performing | Address | City/State/Zipcode | Phone Number | | Organization | | | | + + + + + | [facility] | [address] | [place] [address] | [phone] | + + + + + POC [...] | | | POC | performed at [facility];[address] | | LABORATORY | | | | [address];[place], [place] | | | | | | [address] | | | | + + + + + + + + | Specimen | + + | | + + + + + + + | Performing | Address | City/State/Zipcode | Phone Number | | Organization | | | | + + + + + | [facility] | [address] | [place] [address] | [phone] | + + + + + POC [...] | | | POC | performed at [facility];[address] | | LABORATORY | | | | [address];[place], [place] | | | | | | [address] | | | | + + + + + + + + | Specimen | + + | | + + + + + + + | Performing | Address | City/State/Zipcode | Phone Number | | Organization | | | | + + + + + | [facility] | [address] | [place] [address] | [phone] | + + + + + NM [...] | | | POC | performed at [facility];[address] | | LABORATORY | | | | [address];[place] | | | | | | [address] | | | | + + + + + + + + | Specimen | + + | | + + + + + + + | Performing | Address | City/State/Zipcode | Phone Number | | Organization | | | | + + + + + | [facility] | [address] | [place] [address] | [phone] | + + + + + Basic [...] | | | | | performed at [facility];[address] | | | | | | [facility];[place], [place] | | | | | | [address] | | | | + + + + + + + + | Specimen | + + | Blood | + + + + + + + | Performing | Address | City/State/Zipcode | Phone Number | | Organization | | | | + + + + + | [facility] | [address] | [place] [address] | [phone] | + + + + + CBC [...] | | | Estimate | performed at [facility];[address] | | LABORATORY | | | | [address];[place] | | | | | | [address] | | | | + + + + + + + + | Specimen | + + | Blood | + + + + + + + | Performing | Address | City/State/Zipcode | Phone Number | | Organization | | | | + + + + + | [facility] | [address] | [place] [address] | [phone] | + + + + + POC [...] | | | POC | performed at [facility];[address] | | LABORATORY | | | | [address];[place] | | | | | | [address] | | | | + + + + + + + + | Specimen | + + | | + + + + + + + | Performing | Address | City/State/Zipcode | Phone Number | | Organization | | | | + + + + + | [facility] | [address] | [place] [address] | [phone] | + + + + + POC [...] | | | POC | performed at [facility];[address] | | LABORATORY | | | | [address];[place], [place] | | | | | | [address] | | | | + + + + + + + + | Specimen | + + | | + + + + + + + | Performing | Address | City/State/Zipcode | Phone Number | | Organization | | | | + + + + + | [facility] | [address] | [place] [address] | [phone] | + + + + + Vancomycin, [...] | | | | | performed at [facility] | | | | | | [address];[place], [place] | | | | | | [address] | | | | + + + + + + + + | Specimen | + + | Blood | + + + + + + + | Performing | Address | City/State/Zipcode | Phone Number | | Organization | | | | + + + + + | [facility] | [address] | [place] [address] | [phone] | + + + + + POC Glucose (04/17/2019 12:05 PM PST) + + + + + + | Component | Value | Ref Range | Performed | Pathologist | | | | | At | Signature | + + + + + + | Glucose, | 200 (H)Comment: Testing | 65 - 99 mg/dL | [facility] | | | POC | performed at [facility];[address] | | LABORATORY | | | | [address];[place] | | | | | | [address] | | | | + + + + + + + + | Specimen | + + | | + + + + + + + | Performing | Address | City/State/Zipcode | Phone Number | | Organization | | | | + + + + + | [facility] | [address] | [place] [address] | [phone] | + + + + + POC Glucose (04/17/2019 10:11 AM PST) + + + + + + | Component | Value | Ref Range | Performed | Pathologist | | | | | At | Signature | + + + + + + | Glucose, | 138 (H)Comment: Testing | 65 - 99 mg/dL | [facility] | | | POC | performed at [facility];[address] | | LABORATORY | | | | [address];[place] | | | | | | [address] | | | | + + + + + + + + | Specimen | + + | | + + + + + + + | Performing | Address | City/State/Zipcode | Phone Number | | Organization | | | | + + + + + | [facility] | [address] | [place] [address] | [phone] | + + + + + POC [...] | | | POC | performed at [facility];[address] | | LABORATORY | | | | [address];[place], [place] | | | | | | [address] | | | | + + + + + + + + | Specimen | + + | | + + + + + + + | Performing | Address | City/State/Zipcode | Phone Number | | Organization | | | | + + + + + | [facility] | [address] | [place] [address] | [phone] | + + + + + Basic [...] | >60Comment: GFR <60: | >60 | [facility] | | | GFR | [...] | | | | | | MDRD IDPA traceable | | | | | | equation.Testing | | | | | | performed at [facility], [address] | | | | | | [facility], | | | | | | [place] [address] | | | | + + + + + + + + | Specimen | + + | Blood | + + + + + + + | Performing | Address | City/State/Zipcode | Phone Number | | Organization | | | | + + + + + | [facility] | [address] | [place] [address] | [phone] | + + + + + CBC [...] [address], | | | | | | [place] [address] | | | | | |MICRO | | | | | |NORMAL PLT MORPH | | | | | |Testing performed at [facility], [address] [facility], [place] [address] | | | | | | | | | | + + +---- + + + + + | Specimen | + + | Blood | + + + + + + + | Performing | Address | City/State/Zipcode | Phone Number | | Organization | | | | + + + + + | [facility] | [address] [facility] | [place] [address] | [phone] | + + + + + POC Glucose (04/16/2019 8:57 PM PST) + + + + + + | Component | Value | Ref Range | Performed | Pathologist | | | | | At | Signature | + + + + + + | Glucose, | 96Comment: Testing | 65 - 99 mg/dL | [facility] | | | POC | performed at [facility];8 | | LABORATORY | | | | [address];[place], [place] | | | | | | [address] | | | | + + + + + + + + | Specimen | + + | | + + + + + + + | Performing | Address | City/State/Zipcode | Phone Number | | Organization | | | | + + + + + | [facility] | [address] | [place] [address] | [phone] | + + + + + POC [...] | | | POC | performed at [facility];[address] | | LABORATORY | | | | [address];[place] | | | | | | [address] | | | | + + + + + + + + | Specimen | + + | | + + + + + + + | Performing | Address | City/State/Zipcode | Phone Number | | Organization | | | | + + + + + | [facility] | [address] | [place] [address] | [phone] | + + + + + POC Glucose (04/16/2019 1:15 PM PST) + + + + + + | Component | Value | Ref Range | Performed | Pathologist | | | | | At | Signature | + + + + + + | Glucose, | 106 (H)Comment: Testing | 65 - 99 mg/dL | [facility] | | | POC | performed at [facility];888 | | LABORATORY | | | | [address];[place] | | | | | | [address] | | | | + + + + + + + + | Specimen | + + | | + + + + + + + | Performing | Address | City/State/Zipcode | Phone Number | | Organization | | | | + + + + + | [facility] | [address] | [place] [address] | [phone] | + + + + + POC [...] | | | POC | performed at [facility];888 | | LABORATORY | | | | [address];[place] | | | | | | [address] | | | | + + + + + + + + | Specimen | + + | | + + + + + + + | Performing | Address | City/State/Zipcode | Phone Number | | Organization | | | | + + + + + | [facility] | [address] | [place] [address] | [phone] | + + + + + CBC [...] | | | | | performed at [facility], [address] | | | | | | [address], | | | | | | [place] [address] | | | | | |MICRO | | | | | |NORMAL PLT MORPH | | | | | |Testing performed at [facility], [address] [place] [address] | | | | | | | | | | + + +---- + + + + + | Specimen | + + | Blood | + + + + + + + | Performing | Address | City/State/Zipcode | Phone Number | | Organization | | | | + + + + + | [facility] | [address] [facility] | [place] [address] | [phone] | + + + + + Basic [...] | | | | | performed at [facility], [address] | | | | | | [place], | | | | | | [place] [address] | | | | + + + + + + + + | Specimen | + + | Blood | + + + + + + + | Performing | Address | City/State/Zipcode | Phone Number | | Organization | | | | + + + + + | [facility] | [address] | [place] [address] | [phone] | + + + + + POC [...] | | | POC | performed at [facility];888 | | LABORATORY | | | | [address];[place] | | | | | | [address] | | | | + + + + + + + + | Specimen | + + | | + + + + + + + | Performing | Address | City/State/Zipcode | Phone Number | | Organization | | | | + + + + + | [facility] | [address] | [place] [address] | [phone] | + + + + + POC Glucose (04/15/2019 4:51 PM PST) + + + + + + | Component | Value | Ref Range | Performed | Pathologist | | | | | At | Signature | + + + + + + | Glucose, | 239 (H)Comment: Testing | 65 - 99 mg/dL | [facility] | | | POC | performed at [facility];[address] | | LABORATORY | | | | [address];[place] | | | | | | [address] | | | | + + + + + + + + | Specimen | + + | | + + + + + + + | Performing | Address | City/State/Zipcode | Phone Number | | Organization | | | | + + + + + | [facility] | [address] | [place] [address] | [phone] | + + + + + POC Glucose (04/15/2019 1:19 PM PST) + + + + + + | Component | Value | Ref Range | Performed | Pathologist | | | | | At | Signature | + + + + + + | Glucose, | 227 (H)Comment: Testing | 65 - 99 mg/dL | [facility] | | | POC | performed at [facility];[address] | | LABORATORY | | | | [address];[place] | | | | | | [address] | | | | + + + + + + + + | Specimen | + + | | + + + + + + + | Performing | Address | City/State/Zipcode | Phone Number | | Organization | | | | + + + + + | [facility] | [address] | [place] [address] | [phone] | + + + + + Type [...] + + + | BB BAND | [id number] | | [facility] | | | | | | LABORATORY | | + + + + + + | UNIT # | [id number] | | [facility] | | | | [...] + + + | UNIT # | [id number] | | [facility] | | | | [...] + + + | UNIT # | [id number] | | [facility] | | | | [...] | | | RESULT | performed at [facility];[address] | | LABORATORY | | | | [address];[place], [place] | | | | | | [address] | | | | + + + + + + + + | Specimen | + + | Blood | + + + + + + + | Performing | Address | City/State/Zipcode | Phone Number | | Organization | | | | + + + + + | [facility] | [address] | [place] [address] | [phone] | + + + + + Red [...] | ORDER RECEIVED IN BLOOD | | [facility] | | | COMMENT | BANK. | | LABORATORY | | + + + + + + | BLOOD BANK | Testing performed at | | [facility] | | | COMMENT | [facility];[address] | | LABORATORY | | | | [address];[place] [address] | | | | + + + + + + + + | Specimen | + + | | + + + + + + + | Performing | Address | City/State/Zipcode | Phone Number | | Organization | | | | + + + + + | [facility] | [address] | [place] [address] | [phone] | + + + + + POC Glucose (04/15/2019 9:11 AM PST) + + + + + + | Component | Value | Ref Range | Performed | Pathologist | | | | | At | Signature | + + + + + + | Glucose, | 165 (H)Comment: Testing | 65 - 99 mg/dL | [facility] | | | POC | performed at [facility];[address] | | LABORATORY | | | | [address];[place] | | | | | | [address] | | | | + + + + + + + + | Specimen | + + | | + + + + + + + | Performing | Address | City/State/Zipcode | Phone Number | | Organization | | | | + + + + + | [facility] | [address] | [place] [address] | [phone] | + + + + + Vancomycin, [...] | | | | | performed at [facility] | | | | | | [address];[place], [place] | | | | | | [address] | | | | + + + + + + + + | Specimen | + + | Blood | + + + + + + + | Performing | Address | City/State/Zipcode | Phone Number | | Organization | | | | + + + + + | [facility] | [address] | [place] [address] | [phone] | + + + + + CBC [...] | | | Estimate | performed at [facility];[address] | | LABORATORY | | | | [address];[place] | | | | | | [address] | | | | + + + + + + + + | Specimen | + + | Blood | + + + + + + + | Performing | Address | City/State/Zipcode | Phone Number | | Organization | | | | + + + + + | [facility] | [address] | [place] [address] | [phone] | + + + + + Basic [...] | | | | | performed at [facility];[address] | | | | | | [facility];[place], [place] | | | | | | [address] | | | | + + + + + + + + | Specimen | + + | Blood | + + + + + + + | Performing | Address | City/State/Zipcode | Phone Number | | Organization | | | | + + + + + | [facility] | [address] | [place] [address] | [phone] | + + + + + POC Glucose (04/14/2019 8:15 PM PST) + + + + + + | Component | Value | Ref Range | Performed | Pathologist | | | | | At | Signature | + + + + + + | Glucose, | 159 (H)Comment: Testing | 65 - 99 mg/dL | [facility] | | | POC | performed at [facility];[address] | | LABORATORY | | | | [address];[place] | | | | | | [address] | | | | + + + + + + + + | Specimen | + + | | + + + + + + + | Performing | Address | City/State/Zipcode | Phone Number | | Organization | | | | + + + + + | [facility] | [address] | [place] [address] | [phone] | + + + + + POC [...] | | | POC | performed at [facility];[address] | | LABORATORY | | | | [address];[place], [place] | | | | | | [address] | | | | + + + + + + + + | Specimen | + + | | + + + + + + + | Performing | Address | City/State/Zipcode | Phone Number | | Organization | | | | + + + + + | [facility] | [address] | [place] [address] | [phone] | + + + + + POC Glucose (04/14/2019 11:43 AM PST) + + + + + + | Component | Value | Ref Range | Performed | Pathologist | | | | | At | Signature | + + + + + + | Glucose, | 153 (H)Comment: Testing | 65 - 99 mg/dL | [facility] | | | POC | performed at [facility];[address] | | LABORATORY | | | | [address];[place] | | | | | | [address] | | | | + + + + + + + + | Specimen | + + | | + + + + + + + | Performing | Address | City/State/Zipcode | Phone Number | | Organization | | | | + + + + + | [facility] | [address] | [place] [address] | [phone] | + + + + + ECHO [...] | | | POC | performed at [facility];[address] | | LABORATORY | | | | [address];[place] | | | | | | [address] | | | | + + + + + + + + | Specimen | + + | | + + + + + + + | Performing | Address | City/State/Zipcode | Phone Number | | Organization | | | | + + + + + | [facility] | [address] | [place] [address] | [phone] | + + + + + B [...] | | LABORATORY | | | | [facility];[address];[place] [address] | | | | + + + + + + + + | Specimen | + + | | + + + + + + + | Performing | Address | City/State/Zipcode | Phone Number | | Organization | | | | + + + + + | [facility] | [address] | [place] [address] | [phone] | + + + + + CBC [...] | | | Estimate | performed at [facility];[address] | | LABORATORY | | | | [address];[place] | | | | | | [address] | | | | + + + + + + + + | Specimen | + + | | + + + + + + + | Performing | Address | City/State/Zipcode | Phone Number | | Organization | | | | + + + + + | [facility] | [address] | [place] [address] | [phone] | + + + + + Troponin [...] at | | | | | | [facility];[address] [facility] | | | | | | [facility];[place] [address] | | | | + + + + + + + + | Specimen | + + | Blood | + + + + + + + | Performing | Address | City/State/Zipcode | Phone Number | | Organization | | | | + + + + + | [facility] | [address] | [place] [address] | [phone] | + + + + + Basic [...] | >60Comment: GFR <60: | >60 | [facility] | | | GFR | [...] | | | | | | MDRD [facility] traceable | | | | | | equation.Testing | | | | | | performed at [facility] | | | | | | [facility];[place], [place] | | | | | | [address] | | | | + + + + + + + + | Specimen | + + | Blood | + + + + + + + | Performing | Address | City/State/Zipcode | Phone Number | | Organization | | | | + + + + + | [facility] | [address] | [place] [address] | [phone] | + + + + + Vancomycin Level (04/14/2019 4:53 AM PST) + + + + + + | Component | Value | Ref Range | Performed | Pathologist | | | | | At | Signature | + + + + + + | Vancomycin | 20.6Comment: Testing | ug/mL | [facility] | | | Random, | performed at [facility];[address] | | LABORATORY | | | Serum | [address];[place] | | | | | | [address] | | | | + + + + + + + + | Specimen | + + | Blood | + + + + + + + | Performing | Address | City/State/Zipcode | Phone Number | | Organization | | | | + + + + + | [facility] | [address] | [place] [address] | [phone] | + + + + + POC Glucose (04/14/2019 1:46 AM PST) + + + + + + | Component | Value | Ref Range | Performed | Pathologist | | | | | At | Signature | + + + + + + | Glucose, | 166 (H)Comment: Testing | 65 - 99 mg/dL | [facility] | | | POC | performed at [facility];[address] | | LABORATORY | | | | [address];[place] | | | | | | [address] | | | | + + + + + + + + | Specimen | + + | | + + + + + + + | Performing | Address | City/State/Zipcode | Phone Number | | Organization | | | | + + + + + | [facility] | [address] | [place] [address] | [phone] | + + + + + Troponin I (04/14/2019 1:19 AM PST) + + + + + + | Component | Value | Ref Range | Performed | Pathologist | | | | | At | Signature | + + + + + + | Troponin I | 0.015Comment: 0.04 | 0.00 - 0.04 | [facility] | | | | ng/mL [...] at | | | | | | [facility];[address];[place] [address] | | | | + + + + + + + + | Specimen | + + | Blood | + + + + + + + | Performing | Address | City/State/Zipcode | Phone Number | | Organization | | | | + + + + + | [facility] | [address] | [place] [address] | [phone] | + + + + + ECG [...] | | | POC | performed at [facility];[address] | | LABORATORY | | | | [address];[place] | | | | | | [address] | | | | + + + + + + + + | Specimen | + + | | + + + + + + + | Performing | Address | City/State/Zipcode | Phone Number | | Organization | | | | + + + + + | [facility] | [address] | [place] [address] | [phone] | + + + + + POC Glucose (04/13/2019 4:19 PM PST) + + + + + + | Component | Value | Ref Range | Performed | Pathologist | | | | | At | Signature | + + + + + + | Glucose, | 109 (H)Comment: Testing | 65 - 99 mg/dL | [facility] | | | POC | performed at [facility];[address] | | LABORATORY | | | | [address];[place] | | | | | | [address] | | | | + + + + + + + + | Specimen | + + | | + + + + + + + | Performing | Address | City/State/Zipcode | Phone Number | | Organization | | | | + + + + + | [facility] | [address] | [place] [address] | [phone] | + + + + + XR [...] catheterization with right leg runoff4. Right SFA FLOW SPECIALIST | | | crossing and atherectomy using Bard 14 S crossing catheter SURGEON: | | | Simba Cheng MD COLLECTOR: None ANESTHESIA: Moderate sedation and local | [...] | | identified and brought to the Banking Services Clerk. The patient was placed supine | | [...] sized to a 4 | | | Cymraes sheath. A Omni flush catheter was then [...] inserted over the catheter and the 4 Cymraes sheath was | | | removed. A 7 Cymraes destination sheath was then inserted over the [...] | | | POC | performed at [facility];[address] | | LABORATORY | | | | [address];[place], [place] | | | | | | [address] | | | | + + + + + + + + | Specimen | + + | | + + + + + + + | Performing | Address | City/State/Zipcode | Phone Number | | Organization | | | | + + + + + | [facility] | [address] | [place] [address] | [phone] | + + + + + POC [...] | | | POC | performed at [facility];[address] | | LABORATORY | | | | [address];[place], [place] | | | | | | [address] | | | | + + + + + + + + | Specimen | + + | | + + + + + + + | Performing | Address | City/State/Zipcode | Phone Number | | Organization | | | | + + + + + | [facility] | [address] | [place] [address] | [phone] | + + + + + Basic [...] | | | | | performed at [facility], [address] | | | | | | [facility], | | | | | | [place] [address] | | | | + + + + + + + + | Specimen | + + | Blood | + + + + + + + | Performing | Address | City/State/Zipcode | Phone Number | | Organization | | | | + + + + + | [facility] | [address] | [place] [address] | [phone] | + + + + + CBC [...] | | | | | performed at [facility], [facility] [address] | | | | | | [facility], | | | | | | [place] [address] | | | | | |MICRO | | | | | |NORMAL PLT MORPH | | | | | |Testing performed at [facility], [facility] [place] [address] | | | | | | | | | | + + +---- + + + + + | Specimen | + + | Blood | + + + + + + + | Performing | Address | City/State/Zipcode | Phone Number | | Organization | | | | + + + + + | [facility] | [address] | [place] [address] | [phone] | + + + + + POC Glucose (04/13/2019 3:30 AM PST) + + + + + + | Component | Value | Ref Range | Performed | Pathologist | | | | | At | Signature | + + + + + + | Glucose, | 147 (H)Comment: Testing | 65 - 99 mg/dL | [facility] | | | POC | performed at [facility];[address] | | LABORATORY | | | | [address];[place], [place] | | | | | | [address] | | | | + + + + + + + + | Specimen | + + | | + + + + + + + | Performing | Address | City/State/Zipcode | Phone Number | | Organization | | | | + + + + + | [facility] | [address] | [place] [address] | [phone] | + + + + + POC [...] | | | POC | performed at [facility];[address] | | LABORATORY | | | | [address];[place], [place] | | | | | | [address] | | | | + + + + + + + + | Specimen | + + | | + + + + + + + | Performing | Address | City/State/Zipcode | Phone Number | | Organization | | | | + + + + + | [facility] | [address] | [place] [address] | [phone] | + + + + + POC Glucose (04/12/2019 4:28 PM PST) + + + + + + | Component | Value | Ref Range | Performed | Pathologist | | | | | At | Signature | + + + + + + | Glucose, | 211 (H)Comment: Testing | 65 - 99 mg/dL | [facility] | | | POC | performed at [facility];[address] | | LABORATORY | | | | [address];[place], [place] | | | | | | [address] | | | | + + + + + + + + | Specimen | + + | | + + + + + + + | Performing | Address | City/State/Zipcode | Phone Number | | Organization | | | | + + + + + | [facility] | [address] | [place] [address] | [phone] | + + + + + POC Glucose (04/12/2019 11:53 AM PST) + + + + + + | Component | Value | Ref Range | Performed | Pathologist | | | | | At | Signature | + + + + + + | Glucose, | 162 (H)Comment: Testing | 65 - 99 mg/dL | [facility] | | | POC | performed at [facility];[address] | | LABORATORY | | | | [address];[place] | | | | | | [address] | | | | + + + + + + + + | Specimen | + + | | + + + + + + + | Performing | Address | City/State/Zipcode | Phone Number | | Organization | | | | + + + + + | [facility] | [address] | [place] [address] | [phone] | + + + + + POC [...] | | | POC | performed at [facility];[address] | | LABORATORY | | | | [address];[place], [place] | | | | | | [address] | | | | + + + + + + + + | Specimen | + + | | + + + + + + + | Performing | Address | City/State/Zipcode | Phone Number | | Organization | | | | + + + + + | [facility] | [address] | [place] [address] | [phone] | + + + + + Basic [...] 8.2 (L) | 8.5 - 10.5 | [facility] | | | | | mg/dL | LABORATORY | | + + + + + + | Estimated | >60Comment: GFR <60: | >60 | [facility] | | | GFR | [...] | | | | | | MDRD IDPA traceable | | | | | | equation.Testing | | | | | | performed at [facility], [address] | | | | | | [facility], | | | | | | [place] [address] | | | | + + + + + + + + | Specimen | + + | Blood | + + + + + + + | Performing | Address | City/State/Zipcode | Phone Number | | Organization | | | | + + + + + | [facility] | [address] | [place] [address] | [phone] | + + + + + CBC [...] | | | | | performed at [facility], [address] | | | | | | [address], | | | | | | [place] [address] | | | | | |MICRO | | | | | |NORMAL PLT MORPH | | | | | |Testing performed at [facility], [address] [facility], [place] [address] | | | | | | | | | | + + +---- + + + + + | Specimen | + + | Blood | + + + + + + + | Performing | Address | City/State/Zipcode | Phone Number | | Organization | | | | + + + + + | [facility] | [address] [facility] | [place] [address] | [phone] | + + + + + POC [...] | | | POC | performed at [facility];[address] | | LABORATORY | | | | [address];[place], [place] | | | | | | [address] | | | | + + + + + + + + | Specimen | + + | | + + + + + + + | Performing | Address | City/State/Zipcode | Phone Number | | Organization | | | | + + + + + | [facility] | [address] | [place] [address] | [phone] | + + + + + POC [...] | | | POC | performed at [facility];[address] | | LABORATORY | | | | [address];[place] | | | | | | [address] | | | | + + + + + + + + | Specimen | + + | | + + + + + + + | Performing | Address | City/State/Zipcode | Phone Number | | Organization | | | | + + + + + | [facility] | [address] | [place] [address] | [phone] | + + + + + POC Glucose (04/11/2019 3:22 PM PST) + + + + + + | Component | Value | Ref Range | Performed | Pathologist | | | | | At | Signature | + + + + + + | Glucose, | 168 (H)Comment: Testing | 65 - 99 mg/dL | [facility] | | | POC | performed at [facility];[address] | | LABORATORY | | | | [address];[place], [place] | | | | | | [address] | | | | + + + + + + + + | Specimen | + + | | + + + + + + + | Performing | Address | City/State/Zipcode | Phone Number | | Organization | | | | + + + + + | [facility] | [address] | [place] [address] | [phone] | + + + + + IR [...] x 150 mm | | | angioplasty [id number]. Left SFA stenting using 7 x 120 mm | | | self-expanding stent SURGEON: Simba Cheng MD COLLECTOR: None ANESTHESIA: | | | Moderate sedation [...] | | identified and brought to the Banking Services Clerk. The patient was placed supine | | [...] sized to a 4 | | | Cymraes sheath. A Omni flush catheter was then [...] inserted over the catheter and the 4 Cymraes sheath was | | | removed. A 7 Cymraes destination sheath was then inserted over the [...] using a | | | Glidewire and Nemours catheter. A 0.009 wire was then passed [...] crossed using a | | |Glidewire and Nemours catheter. A 0.009 wire was then passed [...] | | | POC | performed at [facility];[address] | [address] | | | | [address];[place], [place] | | | | | | [id number] | | | | + + + + + + + + | Specimen | + + | | + + + + + + + | Performing | Address | City/State/Zipcode | Phone Number | | Organization | | | | + + + + + | [facility] | [address] | [place] [address] | [phone] | + + + + + B Type Natriuretic Peptide (04/11/2019 5:48 AM PST) + + + + + + | Component | Value | Ref Range | Performed | Pathologist | | | | | At | Signature | + + + + + + | BNP | 220.45 (H)Comment: | 0 - 100 pg/mL | [facility] | | | | Testing performed at | | LABORATORY | | | | [facility];[address] | | | | | | [address];[place] [address] | | | | + + + + + + + + | Specimen | + + | Blood | + + + + + + + | Performing | Address | City/State/Zipcode | Phone Number | | Organization | | | | + + + + + | [facility] | [address] | [place] [address] | [phone] | + + + + + Basic [...] | | | | | performed at [facility], [address] | | | | | | [facility], | | | | | | [place] [address] | | | | + + + + + + + + | Specimen | + + | Blood | + + + + + + + | Performing | Address | City/State/Zipcode | Phone Number | | Organization | | | | + + + + + | [facility] | [address] | [place] [address] | [phone] | + + + + + CBC [...] | | | | | | at [facility], [address] | | | | | | [facility], | | | | | | [place] [address] | | | | | |Testing performed at [facility], [address] [place] [address] | | | | | | | | | | + + +---- + + + + + | Specimen | + + | Blood | + + + + + + + | Performing | Address | City/State/Zipcode | Phone Number | | Organization | | | | + + + + + | [facility] | [address] | [place] [address] | [phone] | + + + + + POC [...] | | | POC | performed at [facility];[address] | | LABORATORY | | | | [address];[place] | | | | | | [address] | | | | + + + + + + + + | Specimen | + + | | + + + + + + + | Performing | Address | City/State/Zipcode | Phone Number | | Organization | | | | + + + + + | [facility] | [address] | [place] [address] | [phone] | + + + + + POC Glucose (04/10/2019 2:33 PM PST) + + + + + + | Component | Value | Ref Range | Performed | Pathologist | | | | | At | Signature | + + + + + + | Glucose, | 176 (H)Comment: Testing | 65 - 99 mg/dL | [facility] | | | POC | performed at [facility];[address] | | LABORATORY | | | | [address];[place] | | | | | | [address] | | | | + + + + + + + + | Specimen | + + | | + + + + + + + | Performing | Address | City/State/Zipcode | Phone Number | | Organization | | | | + + + + + | [facility] | [address] | [place] [address] | [phone] | + + + + + [place] [...] | | | POC | performed at [facility];[address] | | LABORATORY | | | | [address];[place], [place] | | | | | | [address] | | | | + + + + + + + + | Specimen | + + | | + + + + + + + | Performing | Address | City/State/Zipcode | Phone Number | | Organization | | | | + + + + + | [facility] | [address] | [place] [address] | [phone] | + + + + + CBC [...] [address], | | | | | | [place] [address] | | | | + + + + + + + + | Specimen | + + | Blood | + + + + + + + | Performing | Address | City/State/Zipcode | Phone Number | | Organization | | | | + + + + + | [facility] | [address] [facility] | [place] [address] | [phone] | + + + + + POC [...] | | | POC | performed at [facility];[address] | | LABORATORY | | | | [address];[place], [place] | | | | | | [address] | | | | + + + + + + + + | Specimen | + + | | + + + + + + + | Performing | Address | City/State/Zipcode | Phone Number | | Organization | | | | + + + + + | [facility] | [address] | [place] [address] | [phone] | + + + + + POC Glucose (04/09/2019 5:06 PM PST) + + + + + + | Component | Value | Ref Range | Performed | Pathologist | | | | | At | Signature | + + + + + + | Glucose, | 169 (H)Comment: Testing | 65 - 99 mg/dL | [facility] | | | POC | performed at [facility];[address] | | LABORATORY | | | | [address];[place] | | | | | | [address] | | | | + + + + + + + + | Specimen | + + | | + + + + + + + | Performing | Address | City/State/Zipcode | Phone Number | | Organization | | | | + + + + + | [facility] | [address] | [place] [address] | [phone] | + + + + + POC [...] | | | POC | performed at [facility];[address] | | LABORATORY | | | | [address];[place] | | | | | | [address] | | | | + + + + + + + + | Specimen | + + | | + + + + + + + | Performing | Address | City/State/Zipcode | Phone Number | | Organization | | | | + + + + + | [facility] | [address] | [place] [address] | [phone] | + + + + + XR [...] | 1+ (A)Comment: Testing | NONE | [facility] | | | Urine | performed at [facility], [address] | | LABORATORY | | | | [address] [place], | | | | | | [place] [address] | | | | + + + + + + + + | Specimen | + + | | + + + + + + + | Performing | Address | City/State/Zipcode | Phone Number | | Organization | | | | + + + + + | [facility] | [address] | [place] [address] | [phone] | + + + + + Urinalysis, [...] - 1.030 | [facility] | | | [place], | | | LABORATORY | | | [...] | + + + + + | [facility] | [address] | [place] [address] | [phone] | + + + + + Sedimentation Rate (04/09/2019 6:16 AM PST) + + + + + + | Component | Value | Ref Range | Performed | Pathologist | | | | | At | Signature | + + + + + + | ESR | 91 (H)Comment: Testing | 0 - 20 mm/Hr | [facility] | | | | performed at [facility], [address] | | LABORATORY | | | | [address], | | | | | | [place] [address] | | | | + + + + + + + + | Specimen | + + | Blood | + + + + + + + | Performing | Address | City/State/Zipcode | Phone Number | | Organization | | | | + + + + + | [facility] | [address] | [place] [address] | [phone] | + + + + + CBC [...] [facility] | | | | performed at [facility], [address] | | LABORATORY | | | | [address], | | | | | | [place] [address] | | | | + + + + + + + + | Specimen | + + | Blood | + + + + + + + | Performing | Address | City/State/Zipcode | Phone Number | | Organization | | | | + + + + + | [facility] | [address] | [place] [address] | [phone] | + + + + + Comprehensive [...] | | | | | performed at [facility], [address] | | | | | | [address] [facility], | | | | | | [place] [address] | | | | + + + + + + + + | Specimen | + + | Blood | + + + + + + + | Performing | Address | City/State/Zipcode | Phone Number | | Organization | | | | + + + + + | [facility] | [address] | [place] [address] | [phone] | + + + + + POC [...] | | | POC | performed at [facility];[address] | | LABORATORY | | | | [address];[place], [place] | | | | | | [address] | | | | + + + + + + + + | Specimen | + + | | + + + + + + + | Performing | Address | City/State/Zipcode | Phone Number | | Organization | | | | + + + + + | [facility] | [address] | [place] [address] | [phone] | + + + + + Fecal Hemoglobin (04/08/2019 7:27 PM PST) + + + + + + | Component | Value | Ref Range | Performed | Pathologist | | | | | At | Signature | + + + + + + | FECAL | NEGATIVEComment: Testing | NEG | [facility] | | | OCCULT BLD | performed at [facility];[address] | | LABORATORY | | | | [address];[place] | | | | | | [address] | | | | + + + + + + + + | Specimen | + + | Stool - Stool | | specimen (specimen) | + + + + + + + | Performing | Address | City/State/Zipcode | Phone Number | | Organization | | | | + + + + + | [facility] | [address] | [place] [address] | [phone] | + + + + + POC Glucose (04/08/2019 6:34 PM PST) + + + + + + | Component | Value | Ref Range | Performed | Pathologist | | | | | At | Signature | + + + + + + | Glucose, | 179 (H)Comment: Testing | 65 - 99 mg/dL | [facility] | | | POC | performed at [facility];[address] | | LABORATORY | | | | [address];[place] | | | | | | [address] | | | | + + + + + + + + | Specimen | + + | | + + + + + + + | Performing | Address | City/State/Zipcode | Phone Number | | Organization | | | | + + + + + | [facility] | [address] | [place] [address] | [phone] | + + + + + XR [...] Testing | 65 - 99 mg/dL | [facility] | | | POC | performed at [facility];[address] | | LABORATORY | | | | [address];[place] | | | | | | [address] | | | | + + + + + + + + | Specimen | + + | | + + + + + + + | Performing | Address | City/State/Zipcode | Phone Number | | Organization | | | | + + + + + | [facility] | [address] | [place] [address] | [phone] | + + + + + XR [...] | | | POC | performed at [facility];[address] | | LABORATORY | | | | [address];[place], [place] | | | | | | [address] | | | | + + + + + + + + | Specimen | + + | | + + + + + + + | Performing | Address | City/State/Zipcode | Phone Number | | Organization | | | | + + + + + | [facility] | [address] | [place] [address] | [phone] | + + + + + B [...] | | LABORATORY | | | | [facility];[address] | | | | | | [place] [address] | | | | + + + + + + + + | Specimen | + + | Blood | + + + + + + + | Performing | Address | City/State/Zipcode | Phone Number | | Organization | | | | + + + + + | [facility] | [address] | [place] [address] | [phone] | + + + + + CBC [...] [facility] | | | | performed at [facility], [address] | | LABORATORY | | | | [facility], | | | | | | [place] [address] | | | | + + + + + + + + | Specimen | + + | Blood | + + + + + + + | Performing | Address | City/State/Zipcode | Phone Number | | Organization | | | | + + + + + | [facility] | [address] | [place] [address] | [phone] | + + + + + Comprehensive [...] | | | | | | [facility]D [facility] traceable | | | | | | equation.Testing | | | | | | performed at [facility], [address] | | | | | | [facility], | | | | | | [place] [address] | | | | + + + + + + + + | Specimen | + + | Blood | + + + + + + + | Performing | Address | City/State/Zipcode | Phone Number | | Organization | | | | + + + + + | [facility] | [address] | [place] [address] | [phone] | + + + + + POC [...] | | | POC | performed at [facility];[address] | | LABORATORY | | | | [address];[place], [place] | | | | | | [address] | | | | + + + + + + + + | Specimen | + + | | + + + + + + + | Performing | Address | City/State/Zipcode | Phone Number | | Organization | | | | + + + + + | [facility] | [address] | [place] [address] | [phone] | + + + + + POC [...] | | | POC | performed at [facility];[address] | | LABORATORY | | | | [address];[place] | | | | | | [address] | | | | + + + + + + + + | Specimen | + + | | + + + + + + + | Performing | Address | City/State/Zipcode | Phone Number | | Organization | | | | + + + + + | [facility] | [address] [facility] | [place] [address] | [phone] | + + + + + POC [...] | | | POC | performed at [facility];[address] | | LABORATORY | | | | [address];[place], [place] | | | | | | [address] | | | | + + + + + + + + | Specimen | + + | | + + + + + + + | Performing | Address | City/State/Zipcode | Phone Number | | Organization | | | | + + + + + | [facility] | [address] | [place] [address] | [phone] | + + + + + XR [...] + + | Performing | Address | City/State/[facility] | Phone Number | | Organization | [...] | | | POC | performed at [facility];[address] | | LABORATORY | | | | [address];[place], [place] | | | | | | [address] | | | | + + + + + + + + | Specimen | + + | | + + + + + + + | Performing | Address | City/State/Zipcode | Phone Number | | Organization | | | | + + + + + | [facility] | [address] | [place] [address] | [phone] | + + + + + Magnesium [...] | | | | | [place] [address] | | | | + + + + + + + + | Specimen | + + | Blood | + + + + + + + | Performing | Address | City/State/Zipcode | Phone Number | | Organization | | | | + + + + + | [facility] | [address] | [place] [address] | [phone] | + + + + + CBC [...] [facility] | | | | performed at [facility];[address] | | LABORATORY | | | | [address];[place] | | | | | | [address] | | | | + + + + + + + + | Specimen | + + | Blood | + + + + + + + | Performing | Address | City/State/Zipcode | Phone Number | | Organization | | | | + + + + + | [facility] | [address] | [place] [address] | [phone] | + + + + + Comprehensive [...] [place], | | | | | | [place] [address] | | | | + + + + + + + + | Specimen | + + | Blood | + + + + + + + | Performing | Address | City/State/Zipcode | Phone Number | | Organization | | | | + + + + + | [facility] | [address] | [place] [address] | [phone] | + + + + + Iron, Total (04/07/2019 5:02 AM PST) + + + + + + | Component | Value | Ref Range | Performed | Pathologist | | | | | At | Signature | + + + + + + | Iron | 23 (L)Comment: Testing | 45 - 190 ug/dL | [facility] | | | | performed at [facility], [address] | | LABORATORY | | | | [address], | | | | | | [place] [address] | | | | + + + + + + + + | Specimen | + + | Blood | + + + + + + + | Performing | Address | City/State/Zipcode | Phone Number | | Organization | | | | + + + + + | [facility] | [address] | [place] [address] | [phone] | + + + + + POC Glucose (04/06/2019 8:54 PM PST) + + + + + + | Component | Value | Ref Range | Performed | Pathologist | | | | | At | Signature | + + + + + + | Glucose, | 216 (H)Comment: Testing | 65 - 99 mg/dL | [facility] | | | POC | performed at [facility];[address] | | LABORATORY | | | | [address];[place] | | | | | | [address] | | | | + + + + + + + + | Specimen | + + | | + + + + + + + | Performing | Address | City/State/Zipcode | Phone Number | | Organization | | | | + + + + + | [facility] | [address] | [place] [address] | [phone] | + + + + + POC Glucose (04/06/2019 4:29 PM PST) + + + + + + | Component | Value | Ref Range | Performed | Pathologist | | | | | At | Signature | + + + + + + | Glucose, | 173 (H)Comment: Testing | 65 - 99 mg/dL | [facility] | | | POC | performed at [facility];[address] | | LABORATORY | | | | [address];[place], [place] | | | | | | [address] | | | | + + + + + + + + | Specimen | + + | | + + + + + + + | Performing | Address | City/State/Zipcode | Phone Number | | Organization | | | | + + + + + | [facility] | [address] | [place] [address] | [phone] | + + + + + Culture, [...] LABORATORY | | | | Blvd;[place] [address] | | | | + + + + + + | RESULT | 1+NORMAL SKIN CELSA | | [facility] | | | | ISOLATED | | LABORATORY | | | | | | | | + + + + + + | RESULT | NO FURTHER WORKUP | | [facility] | | | | | | LABORATORY | | + + + + + + | RESULT | Testing performed at | | [facility] | | | | [facility], [address] | | LABORATORY | | | | [place] | | | | | | [address]Glvrhox: Testing | | | | | | performed at [facility], [address] | | | | | | [address] [place] | | | | | | [address] | | | | + + + + + + + + | Specimen | + + | Body Fluid - Entire | | heel (body | | structure) | + + + + + + + | Performing | Address | City/State/Zipcode | Phone Number | | Organization | | | | + + + + + | [facility] | [address] | [place] [address] | [phone] | + + + + + Culture, [...] | | LABORATORY | | | | Blvd;[place] [address] | | | | + + + [...] + | Enterococcus | Gent Synergy | JESSCIA | RESISTANT: | | faecalis | | [...] Comment: Testing | | | performed at [facility], | | | [address], | | | [place] [address] | +---+ + + + + + + | Performing | Address | City/State/Zipcode | Phone Number | | Organization | | | | + + + + + | [facility] | [address] | [place] [address] | [phone] | + + + + + Ferritin (04/06/2019 2:30 PM PST) + + + + + + | Component | Value | Ref Range | Performed | Pathologist | | | | | At | Signature | + + + + + + | Ferritin | 62Comment: Testing | 11 - 450 ng/mL | [facility] | | | | performed at [facility], [address] | | LABORATORY | | | | [address], | | | | | | [place] [address] | | | | + + + + + + + + | Specimen | + + | Blood | + + + + + + + | Performing | Address | City/State/Zipcode | Phone Number | | Organization | | | | + + + + + | [facility] | [address] | [place] [address] | [phone] | + + + + + Vitamin [...] [facility] | | | | performed at [facility], [address] | | LABORATORY | | | | [address], | | | | | | [place] [address] | | | | + + + + + + + + | Specimen | + + | Blood | + + + + + + + | Performing | Address | City/State/Zipcode | Phone Number | | Organization | | | | + + + + + | [facility] | [address] | [place] [address] | [phone] | + + + + + Troponin I (04/06/2019 2:30 PM PST) + + + + + + | Component | Value | Ref Range | Performed | Pathologist | | | | | At | Signature | + + + + + + | Troponin I | 0.161 (H)Comment: 0.04 | 0.00 - 0.04 | [facility] | | | | ng/mL [...] at | | | | | | [facility];[address] | | | | | | [address];[place] [address] | | | | + + + + + + + + | Specimen | + + | Blood | + + + + + + + | Performing | Address | City/State/Zipcode | Phone Number | | Organization | | | | + + + + + | [facility] | [address] | [place] [address] | [phone] | + + + + + POC [...] | | | POC | performed at [facility];[address] | | LABORATORY | | | | [address];[place] | | | | | | [address] | | | | + + + + + + + + | Specimen | + + | | + + + + + + + | Performing | Address | City/State/Zipcode | Phone Number | | Organization | | | | + + + + + | [facility] | [address] | [place] [address] | [phone] | + + + + + VAS [...] Testing | 65 - 99 mg/dL | [facility] | | | POC | performed at [facility];[address] | | LABORATORY | | | | [address];[place] | | | | | | [address] | | | | + + + + + + + + | Specimen | + + | | + + + + + + + | Performing | Address | City/State/Zipcode | Phone Number | | Organization | | | | + + + + + | [facility] | [address] | [place] [address] | [phone] | + + + + + Troponin I (04/06/2019 8:31 AM PST) + + + + + + | Component | Value | Ref Range | Performed | Pathologist | | | | | At | Signature | + + + + + + | Troponin I | 0.19 (H)Comment: 0.04 | 0.00 - 0.04 | [facility] | | | | ng/mL [...] at | | | | | | [facility];[address] [facility] | | | | | | [facility];[place] [address] | | | | + + + + + + + + | Specimen | + + | Blood | + + + + + + + | Performing | Address | City/State/Zipcode | Phone Number | | Organization | | | | + + + + + | [facility] | [address] | [place] [address] | [phone] | + + + + + XR [...] LABORATORY | | | | Blvd;[place] [address] | | | | + + + + + + | RESULT | NO GROWTH 6 DAYS | | [facility] | | | | | | LABORATORY | | + + + + + + | RESULT | Testing performed at | | [facility] | | | | [facility], [address] [facility] | | LABORATORY | | | | [place], [place], [place] | | | | | | [address]Xaovvrp: Testing | | | | | | performed at [facility], [address] | | | | | | [facility], [place], [place] | | | | | | [address] | | | | + + + + + + + + | Specimen | + + | Blood - Peripheral | | blood specimen | | (specimen) | + + + + + + + | Performing | Address | City/State/Zipcode | Phone Number | | Organization | | | | + + + + + | [facility] | [address] | [place] [address] | [phone] | + + + + + Culture, [...] LABORATORY | | | | Blvd;[place] [address] | | | | + + + + + + | RESULT | NO GROWTH 6 DAYS | | [facility] | | | | | | LABORATORY | | + + + + + + | RESULT | Testing performed at | | [facility] | | | | [facility], [address] | | LABORATORY | | | | [place], [place] | | | | | | [address]Upvobex: Testing | | | | | | performed at [facility], [address] | | | | | | [address] [place], [place] | | | | | | [address] | | | | + + + + + + + + | Specimen | + + | Blood - Peripheral | | blood specimen | | (specimen) | + + + + + + + | Performing | Address | City/State/Zipcode | Phone Number | | Organization | | | | + + + + + | [facility] | [address] | [place] [address] | [phone] | + + + + + B [...] | | LABORATORY | | | | [facility];[address] | | | | | | [address];[place] [address] | | | | + + + + + + + + | Specimen | + + | | + + + + + + + | Performing | Address | City/State/Zipcode | Phone Number | | Organization | | | | + + + + + | [facility] | [address] | [place] [address] | [phone] | + + + + + Lipid [...] | | | Calculated | performed at [facility], [address] | | LABORATORY | | | | [address], | | | | | | [place] [address] | | | | + + + + + + + + | Specimen | + + | Blood | + + + + + + + | Performing | Address | City/State/Zipcode | Phone Number | | Organization | | | | + + + + + | [facility] | [address] | [place] [address] | [phone] | + + + + + Hemoglobin A1C (04/06/2019 2:48 AM PST) + + + + + + | Component | Value | Ref Range | Performed | Pathologist | | | | | At | Signature | + + + + + + | Hemoglobin | 7.8 (H)Comment: HbA1c | 4.0 - 6.0 % | [facility] | | | A1c | [...] | 177 (H)Comment: | <154 mg/dL | [facility] | | | Average | Estimated Average | | LABORATORY | | | Glucose | Glucose calculated from | | | | | | hemoglobin A1c by use of | | | | | | the ADArecommended | | | | | | formula.Testing | | | | | | performed at [facility], [address] | | | | | [address], | | | | | | [place] [address] | | | | + + + + + + + + | Specimen | + + | Blood | + + + + + + + | Performing | Address | City/State/Zipcode | Phone Number | | Organization | | | | + + + + + | [facility] | [address] | [place] [address] | [phone] | + + + + + Magnesium (04/06/2019 2:48 AM PST) + + + + + + | Component | Value | Ref Range | Performed | Pathologist | | | | | At | Signature | + + + + + + | Magnesium | 1.4 (L)Comment: Testing | 1.7 - 2.4 mg/dL | [facility] | | | | performed at [facility], [address] | | LABORATORY | | | | [address], | | | | | | [place] [address] | | | | + + + + + + + + | Specimen | + + | Blood | + + + + + + + | Performing | Address | City/State/Zipcode | Phone Number | | Organization | | | | + + + + + | [facility] | [address] | [place] [address] | [phone] | + + + + + Comprehensive [...] | | | | | performed at [facility], [address] | | | | | [address], | | | | | | [place] [address] | | | | + + + + + + + + | Specimen | + + | Blood | + + + + + + + | Performing | Address | City/State/Zipcode | Phone Number | | Organization | | | | + + + + + | [facility] | [address] | [place] [address] | [phone] | + + + + + CBC [...] | | | | | | at [facility] [place];[address] [address] | | | [address];[place] [address] | | | | | |NORMAL PLT MORPH | | | | | |Testing performed at [facility];[address] [facility];[place] [address] | | | | | | | | | | + + + + + + + + | Specimen | + + | Blood | + + + + + + + | Performing | Address | City/State/Zipcode | Phone Number | | Organization | | | | + + + + + | [facility] | [address] | [place] [address] | [phone] | + + + + + Protime INR (04/06/2019 2:48 AM PST) + + + + + + | Component | Value | Ref Range | Performed | Pathologist | | | | | At | Signature | + + + + + + | INR | 1.2Comment: REFERENCE | | [facility] | | | | RANGE:0.9 [...] | | | | | performed at [facility];[address] | | | | | | [address];[place] | | | | | | [address] | | | | + + + + + + + + | Specimen | + + | Blood | + + + + + + + | Performing | Address | City/State/Zipcode | Phone Number | | Organization | | | | + + + + + | [facility] | [address] | [place] [address] | [phone] | + + + + + PTT (04/06/2019 2:48 AM PST) + + + + + + | Component | Value | Ref Range | Performed | Pathologist | | | | | At | Signature | + + + + + + | PTT | 34 (H)Comment: Testing | 23 - 32 seconds | [facility] | | | | performed at [facility];[address] | | LABORATORY | | | | [address];[place] | | | | | | [address] | | | | + + + + + + + + | Specimen | + + | Blood | + + + + + + + | Performing | Address | City/State/Zipcode | Phone Number | | Organization | | | | + + + + + | [facility] | [address] | [place] [address] | [phone] | + + + + + Troponin I (04/06/2019 2:48 AM PST) + + + + + + | Component | Value | Ref Range | Performed | Pathologist | | | | | At | Signature | + + + + + + | Troponin I | 0.198 (H)Comment: 0.04 | 0.00 - 0.04 | [facility] | | | | ng/mL [...] at | | | | | | [facility];[address] | | | | | | Blvd;[place] [address] | | | | + + + + + + + + | Specimen | + + | Blood | + + + + + + + | Performing | Address | City/State/Zipcode | Phone Number | | Organization | | | | + + + + + | [facility] | [address] | [place] [address] | [phone] | + + + + + documented [...]
--- OUTSIDE RECORDS SUMMARY | ~2019-08-08 | XMS | Encounter Summary ---
Demographics + + + | Address | [address] | | | [place] [address] | + + + | Home Phone [...] Organization | [facility] | | | and [place] | + + + | Address | Unknown | + + + | Phone | Unavailable | + + + Support + + + + + | Name | Relationship | Address | Phone | + + + + + | Jessica Shepard | ECON | [address] | | | | | [place] | | | | | [address] | | + + + + + | Bel Solis | ECON | Unknown | | + + + + + Care Team Providers + +------+ + | Care Assistant Coach Name | Role | Phone | + +------+ + | Jamar Manuel MD | PCP | | + +------+ + Encounter Details +--------+ + + + + | Date | Type | Department | Care Team | Description | +--------+ + + + + | 01/03/ | Lab | [facility] | Toby Ortiz | Other acute | | 2018 | Requisition | [facility] | MD [address] | osteomyelitis, right | | | | [address] [place] | [facility] | ankle and foot | | | | [place], [place] | [place] [address] | ([facility]); Diabetes | | | | [address] | [phone] | mellitus due to | | | | [phone] | | underlying condition | | | | | | with foot ulcer | | | | | | (CODE) ([facility]); Other | | | | | | terminal manager (current) | | | | | | [...] results section. | | | | | ([facility]) Diabetes | | | | | | mellitus due to | | | | | | underlying condition | | | | | | with foot ulcer | | | | | | (CODE) ([facility]) Other | | | | | | terminal manager (current) | | | | | | [...] | | | | | | (CODE) ([facility]) Other | | | | | | terminal manager (current) | | | | | | drug therapy | | + +--------+ + + + | C-REACTIVE PROTEIN | Routin | 01/03/2018 | Other acute | Results for this | | | e | 9:45 AM | osteomyelitis, right | procedure are in the | | | | PDT | ankle and foot | results section. | | | | | ([facility]) Diabetes | | | | | | mellitus due to | | | | | | underlying condition | | | | | | with foot ulcer | | | | | | (CODE) ([facility]) Other | | | | | | terminal manager (current) | | | | | | drug therapy | | + +--------+ + + + | COMPREHENSIVE | Routin | 01/03/2018 | Other acute | Results for this | | METABOLIC PANEL | e | 9:45 AM | osteomyelitis, right | procedure are in the | | | | PDT | ankle and foot | results section. | | | | | ([facility]) Diabetes | | | | | | mellitus due to | | | | | | underlying condition | | | | | | with foot ulcer | | | | | | (CODE) ([facility]) Other | | | | | | long-term (current) | | | | | | [...] 12 | 7 - 18 mg/dL | [facility] | | | | | | [facility] | | | | | | MEDICAL | | | | | | C[facility] - | | | | | | LABORATORY | | + + + + + + | Creatinine | 0.63 | 0.60 - 1.30 | [facility] | | | | | mg/dL | [facility] | | | | | | MEDICAL | | | | | | CENTER - | | | | | | LABORATORY | | + + + + + + | eGFR if not | >60Comment: GLOMERULAR | >=60 | [facility] | | | | FILTRATION | mL/min/1.73m2 | [facility] | | | [facility] | RATE,ESTIMATED | | MEDICAL | | | | mL/min/1.64h9Ubhq than | | CENTER - | | [...] + | [facility] | [address] | [place] | [phone] | | [facility] | | [address] | | | - LABORATORY | | [...] [address] | [place] | [phone] | | [facility] | | [address] | | | - LABORATORY | | [...] + | [facility] | [address] | [place] | [phone] | | [facility] | | [address] | | | - LABORATORY | | [...] [facility] | | | | | | [facility] | | | | | | MEDICAL | | | | | | CENTER - | | | | | | LABORATORY | | + + + + + + | RBC | 4.83 | 4.30 - 5.70 | [facility] | | | | | M/uL | 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
--- OUTSIDE RECORDS SUMMARY | ~2019-08-08 | XMS | Encounter Summary ---
Demographics + + + | Address | [address] | | | [place] [address] | + + + | Home Phone [...] + | Organization | [facility] | | | and [place] | + + + | Address | Unknown | + + + | Phone | Unavailable | + + + Support + + + + + | Name | Relationship | Address | Phone | + + + + + | Jessica Shepard | ECON | [address] | | | | | [place] | | | | | [address] | | + + + + + | Bel Solis | ECON | Unknown | | + + + + + Care Team Providers + +------+ + | Care Visiting Professor Name | Role | Phone | + +------+ + | Jamar Manuel MD | PCP | | + +------+ + Encounter Details +--------+ + + + + | Date | Type | Department | Care Team | Description | +--------+ + + + + | 04/06/ | Hospital | [facility] | Jagdish Jimenez DO | Insulin dependent | | 2020 - | Encounter | [facility] | [address] | diabetes mellitus | | | | [address] | [place] [address] | (FORMERLY [facility]) (Primary Dx); | | 04/21/ | | [place], [place] | [phone] | Peripheral vascular | | 2020 | | [address] | | disease (FORMERLY [facility]); Other | | | | [phone] | Ady Yin MD | osteomyelitis of | | | | | [address] | right foot (FORMERLY [facility]); | | | | | [place] [address] | Essential | | | | | [phone] | hypertension; Acute | | | | | | left hemiparesis | | | | | Grover Charles MD | (FORMERLY [facility]); Other | | | | | [address] | osteomyelitis of | | | | | [place] [address] | right foot ([facility]LY [facility]); | | | | | [phone] | Chronic | | | | | | osteomyelitis ([facility]LY [facility]); | | | | | Scooter Davies MD | Acute osteomyelitis | | | | | [address] | of right calcaneus | | | | | [place] | (FORMERLY [facility]); Osteomyelitis | | | | | [address] | of metatarsal | | | | | | (FORMERLY [facility]); 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 The patient was admitted to regular medical floor and started on optimal medical management . On-call program director substance abuse (Dr. Ruelas) recommended continued medical management. 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 The patien t will need to follow-up with his outpatient program director substance abuse within 1 to 2 weeks after discharg [...] Results Results Reviewed. Discharge Information: Follow up: [address] [address] Bhanu Seaman PA-C [address] [place] [phone] In 2 weeks [place] [address] Schedule an appointment as soon as possible for a visit in 1 week Hero Gaston MD [address] [facility] [phone] Schedule an appointment as soon as possible for a visit in 2 weeks Post hospital discharge follow-up Dr. New Ruelas [address] [facility] [phone] Schedule an appointment as soon as possible [...] numbness Complications from anesthesia Date Last Reviewed: 08/20/201519990514-1638 [employer]. [address] [place] [address], [place] [address]. All righ ts reserved. This information is [...] Wakefield PA-C - 04/21/2019 8:21 AM PST [facility] Service: Vascular Surgery Progress Note SUBJECTIVE Patient Summary: 74 y.o. man with complex medical issues and LE ischemic ulcers, he wa s recently admitted to the [facility] from 03/28/19 to 04/04/19 where he was treated/ diagnosed with systolic heart failure, type 2 IA/NSTEMI, SHAE, ARF. O2 desaturation brought him from SNF to [facility] and current admission today with CHF and [...] Holliday RN - 04/20/2019 4:40 PM PST [facility] Service: Wound Care Follow Up Note Hospital [...] Primary Wound Type: Diabetic Ulcer Side: Left [place] ation: lateral Location: foot Wound Subtype: ulceration, [...] M D - 04/20/2019 2:16 PM PST [facility] Service: Hospitalist Progress Note Pt: Reagan Shepard [...] hematuria. Recent history notable for admit to [facility] from 03/28/19 to 04/04/2019 [...] of 01/31/20-14:16 IMAGING: Reviewed in [facility], no new results. PROBLEM LIST Principal Problem: [...] Received 8 days of IV antibiotics at [facility] discharged home on with augmentin, now readmitted on 04/06 at [facility] and started on rocephin after sending [...] SQH Code status: Full Dispo: back to [facility] pending recovery from vascular bypass surgery (okay to go [facility] vascular surgery perspective), final ID recs, [...] therapy as indicated. Thank You, Rosendo SquiresD, [facility] 04/20/19 1:52 PM Nandini Sánchez se, MD - 04/20/2019 8:56 AM PST [facility] Service: Infectious Diseases Progress Note Hospital Day: [...] Component Value Units Date/Time Culture, Wound, Superficial [[id number]] (Abnormal) (Susceptibility) Collected: 04/06/19 1546 Order Status: Completed Lab Status: Final result Updated: 04/11/19 1828 Specimen: Body Fluid from Heel, Right Special Requests LT FOOT Special Requests Testing performed at [facility];[address] [place] [address];[place] [address] RESULT -- 1+ ENTEROCOCCUS FAECALIS Aminoglycosides (except [...] Sensitive SUSCEPTIBLE JESSICA Final Testing performed at [facility], [address] [place] [address] Culture, Wound, Superficial [[id number]] Collected: 04/06/19 1546 Order Status: Completed Lab Status: Final result Updated: 04/08/19 0937 Specimen: Body Fluid from Heel, Right Special Requests RIGHT FOOT Special Requests Testing performed at [facility];[address] [place] [address] RESULT -- 1+ NORMAL SKIN CELSA ISOLATED RESULT NO FURTHER WORKUP RESULT Testing performed at [facility], [address] [place] [address] Comment: Testing performed at [facility], [address] [place] [address] Microbiology Results (72 hrs) No results found [...] assisting with dosing and monitorization. Discussed with therapeutic case manager regarding OPAT. Discussed with therapeutic case manager regarding discharge planning. Dr. Dolan will take over ID service tomorrow. Please call if questions. Hero Richardson MD, MPH Infectious Diseases 04/20/19 heila Cabrera RN - 04/19/2019 7:20 PM PSTEnd of shift chart check complete. Sheila Cabrera RN unshine Love, [facility] - 04/19/2019 3:23 PM PSTFormatting of this [...] Shaver MD - 04/19/2019 2:46 PM PST [facility] Service: Hospitalist Progress Note Pt: Reagan Shepard [...] hematuria. Recent history notable for admit to [facility] from 03/28/19 to 04/04/2019 [...] Received 8 days of IV antibiotics at [facility] discharged home on with augmentin, now readmitted on 04/06 at [facility] and started on rocephin after sending [...] SQH Code status: Full Dispo: back to [facility] pending recovery from vascular bypass surgery, final ID recs , tentatively planning for ~04/21 Grover Charles MD 2:46 PM 04/19/2019 Portions of this chart may have been copied from previous notes for continuity of care purp ose Hero Sánchez MD - 04/19/2019 9:53 AM PSTFormatting of this note might be different from the [facility]: Infectious Diseases Progress Note Hospital [...] Component Value Units Date/Time Culture, Wound, Superficial [[id number]] (Abnormal) (Susceptibility) Collected: 04/06/191545 Order Status: Completed Lab Status: Final result Updated: 04/11/1928 Specimen: Body Fluid from Heel, Right Special Requests LT FOOT Special Requests Testing performed at [facility];[address] [place] [address] RESULT -- 1+ ENTEROCOCCUS FAECALIS Aminoglycosides (except [...] Sensitive SUSCEPTIBLE JESSICA Final Testing performed at [facility], [address] [place] [address] Culture, Wound, Superficial [[id number]] Collected: 04/06/191545 Order Status: Completed Lab Status: Final result Updated: 04/08/1937 Specimen: Body Fluid from Heel, Right Special Requests RIGHT FOOT Special Requests Testing performed at [facility];[address] [place] [address] RESULT -- 1+ NORMAL SKIN CELSA ISOLATED RESULT NO FURTHER WORKUP RESULT Testing performed at [facility], [address] [place] [address] Comment: Testing performed at [facility], [address] [place] [address] Culture, Blood [[id number]] Collected: 04/06/19337 Order Status: Completed Lab Status: Final result Updated: 04/12/1952 Specimen: Peripheral Blood Special Requests R WRIST Special Requests Testing performed at [facility];[address] [place] [address] RESULT NO GROWTH 6 DAYS RESULT Testing performed at [facility], [address] [place] [address] Comment: Testing performed at [facility], [address] [place] [address] Culture, Blood [[id number]] Collected: 04/06/19330 Order Status: Completed Lab Status: Final result Updated: 04/12/1952 Specimen: Peripheral Blood Special Requests L WRIST Special Requests Testing performed at [facility];[address] [place] [address] RESULT NO GROWTH 6 DAYS RESULT Testing performed at [facility], [address] [place] [address] Comment: Testing performed at [facility], [address] [place] [address] Microbiology Results (72 hrs) No results found [...] might be different from the o riginal. [facility] Service: Vascular Surgery Progress Note SUBJECTIVE Patient Summary: 74 y.o. man with complex medical issues and LE ischemic ulcers, he wa s recently admitted to the [facility] from 03/28/19 to 04/04/19 where he was treated/ diagnosed with systolic heart failure, type 2 IA/NSTEMI, SHAE, ARF. O2 desaturation brought him from SNF to [facility] and current admission today with CHF and [...] Rachel Altamirano RN - 04/19/2019 5:46 AM [id number] left foot dressing change complete per order. [...] Grover Shaver MD - 4:52 PM PST [facility] Service: Hospitalist Progress Note Pt: Reagan Shepard AGE/SEX: 74 y.o. male ROOM: [facility] OR INTRA OP POOL/[facility]* : 1945 PCP: Jamar Manuel MD ADMIT DATE: 04/06/2019 TODAY'S DATE: 04/18/2019 Hospital Day/Hospital Course: LOS: 12 days Mr. Shepard is a 74-year-old gentleman with a history of bilateral nonhealing diabetic trisha t ulcers, and history of TBI, stroke, insulin dependent DM, who presents with CHF exacerbati on with hospital course complicated by gross hematuria. Recent history notable for admit to [facility] from 03/28/19 to 04/04/2019 [...] the last 72 hours. IMAGING: Reviewed in [facility], no new results. PROBLEM LIST Principal Problem: [...] Received 8 days of IV antibiotics at [facility] discharged home on with augmentin, now readmitted on 04/06 at [facility] and started on rocephin after sending [...] SQH Code status: Full Dispo: back to [facility] pending cardiac evaluation/optimization, vascular bypass donna [...] as indicated. Thank You, Sunshine Love, PharmD, [facility] 04/18/19 2:45 PM Syed López PTA - [...] might be different from t kevin original. [facility] Service: Infectious Diseases Progress Note Hospital Day: [...] Component Value Units Date/Time Culture, Wound, Superficial [[id number]] (Abnormal) (Susceptibility) Collected: 04/06/191545 Order Status: Completed Lab Status: Final result Updated: 04/11/1928 Specimen: Body Fluid from Heel, Right Special Requests LT FOOT Special Requests Testing performed at [facility];[address] [place] [address] RESULT -- 1+ ENTEROCOCCUS FAECALIS Aminoglycosides (except [...] Sensitive SUSCEPTIBLE JESSICA Final Testing performed at [facility], [address] [place] [address] Culture, Wound, Superficial [[id number]] Collected: 04/06/191545 Order Status: Completed Lab Status: Final result Updated: 04/08/19 0937 Specimen: Body Fluid from Heel, Right Special Requests RIGHT FOOT Special Requests Testing performed at [facility];[address] [place] [address] RESULT -- 1+ NORMAL SKIN CELSA ISOLATED RESULT NO FURTHER WORKUP RESULT Testing performed at [facility], [address] [place] [address] Comment: Testing performed at [facility], [address] [place] [address] Culture, Blood [[id number]] Collected: 04/06/19337 Order Status: Completed Lab Status: Final result Updated: 04/12/1952 Specimen: Peripheral Blood Special Requests R WRIST Special Requests Testing performed at [facility];[address] [place] [address] RESULT NO GROWTH 6 DAYS RESULT Testing performed at [facility], [address] [place] [address] Comment: Testing performed at [facility], [address] [place] [address] Culture, Blood [[id number]] Collected: 04/06/19330 Order Status: Completed Lab Status: Final result Updated: 04/12/1952 Specimen: Peripheral Blood Special Requests L WRIST Special Requests Testing performed at [facility];[address] [place] [address] RESULT NO GROWTH 6 DAYS RESULT Testing performed at [facility], [address] [place] [address] Comment: Testing performed at [facility], [address] [place] [address] Microbiology Results (72 hrs) No results found [...] might be different from the o riginal. [facility] Service: Vascular Surgery Progress Note SUBJECTIVE Patient Summary: 74 y.o. man with complex medical issues and LE ischemic ulcers, he wa s recently admitted to the [facility] from 03/28/19 to 04/04/19 where he was treated/ diagnosed with systolic heart failure, type 2 IA/NSTEMI, SHAE, ARF. O2 desaturation brought him from SNF to [facility] and current admission today with CHF and [...] of feet - [facility]. Cryovein is in [...] chart check review Sunshine Chen, [facility] - 04/17/2019 1:38 PM PST Vancomycin Dosing [...] as indicated. Thank You, Sunshine Love, PharmD, [facility] 04/17/19 1:38 PM Grover Shaver MD - 04/17/2019 12:25 PM PST [facility] Service: Hospitalist Progress Note Pt: Reagan Shepard AGE/SEX: 74 y.o. male ROOM: [facility] : 1945 PCP: Jamar Manuel MD ADMIT DATE: 04/06/2019 TODAY'S DATE: 04/17/2019 Hospital Day/Hospital Course: LOS: 11 days Mr. Shepard is a 74-year-old gentleman with a history of bilateral nonhealing diabetic trisha t ulcers, and history of TBI, stroke, insulin dependent DM, who presents with CHF exacerbati on with hospital course complicated by gross hematuria. Recent history notable for admit to [facility] from 03/28/19 to 04/04/2019 [...] Received 8 days of IV antibiotics at [facility] discharged home on with augmentin, now readmitted on 04/06 at [facility] and started on rocephin after sending [...] SQH Code status: Full Dispo: back to [facility] pending cardiac evaluation/optimization, vascular bypass donna wero, final ID recs, tentatively planning for ~04/21 Grover Charles MD 12:25 PM 04/17/2019 Portions of this chart may have been copied from previous notes for continuity of care purp ose Rico Modi MD - 11:19 AM PST [facility] Service: Cardiology/[facility] Interventional cardiology note RE: Reagan [...] minimal reversib ility 2. Recent non-Q wave IA 3. Severe peripheral vascular disease 4. Diabetes [...] might be different from the heidi razo. [facility] Service: Infectious Diseases Progress Note Hospital Day: [...] Component Value Units Date/Time Culture, Wound, Superficial [[id number]] (Abnormal) (Susceptibility) Collected: 04/06/191545 Order Status: Completed Lab Status: Final result Updated: 04/11/1928 Specimen: Body Fluid from Heel, Right Special Requests LT FOOT Special Requests Testing performed at [facility];[address] [place] [address];[place] [address] RESULT -- 1+ ENTEROCOCCUS FAECALIS Aminoglycosides (except [...] Sensitive SUSCEPTIBLE JESSICA Final Testing performed at [facility], [address] [place] [address], [place] [address] Culture, Wound, Superficial [[id number]] Collected: 04/06/191545 Order Status: Completed Lab Status: Final result Updated: 04/08/19 0937 Specimen: Body Fluid from Heel, Right Special Requests RIGHT FOOT Special Requests Testing performed at [facility];[address] [place] [address];[place] [address] RESULT -- 1+ NORMAL SKIN CELSA ISOLATED RESULT NO FURTHER WORKUP RESULT Testing performed at [facility], [address] [place] [address] Comment: Testing performed at [facility], [address] [place] [address] Culture, Blood [[id number]] Collected: 04/06/19337 Order Status: Completed Lab Status: Final result Updated: 04/12/19651 Specimen: Peripheral Blood Special Requests R WRIST Special Requests Testing performed at [facility];[address] [place] [address] RESULT NO GROWTH 6 DAYS RESULT Testing performed at [facility], [address] [place] [address] Comment: Testing performed at [facility], [address] [place] [address] Culture, Blood [[id number]] Collected: 04/06/19330 Order Status: Completed Lab Status: Final result Updated: 04/12/1952 Specimen: Peripheral Blood Special Requests L WRIST Special Requests Testing performed at [facility];[address] [place] [address] RESULT NO GROWTH 6 DAYS RESULT Testing performed at [facility], [address] [place] [address] Comment: Testing performed at [facility], [address] [place] [address] Microbiology Results (72 hrs) No results found [...] might be different from the o riginal. [facility] Service: Vascular Surgery Progress Note SUBJECTIVE Patient Summary: 74 y.o. man with complex medical issues and LE ischemic ulcers, he wa s recently admitted to the [facility] from 03/28/19 to 04/04/19 where he was treated/ diagnosed with systolic heart failure, type 2 IA/NSTEMI, SHAE, ARF. O2 desaturation brought him from SNF to [facility] and current admission today with CHF and [...] Sánchez MD - 04/16/2019 6:49 PM PST [facility] Service: Infectious Diseases Progress Note Hospital Day: [...] Component Value Units Date/Time Culture, Wound, Superficial [[id number]] (Abnormal) (Susceptibility) Collected: 04/06/19 1546 Order Status: Completed Lab Status: Final result Updated: 04/11/19 0728 Specimen: Body Fluid from Heel, Right Special Requests LT FOOT Special Requests Testing performed at [facility];[address] [place] [address];[place] [address] RESULT -- 1+ ENTEROCOCCUS FAECALIS Aminoglycosides (except [...] Sensitive SUSCEPTIBLE JESSICA Final Testing performed at [facility], [address] [place] [address] Culture, Wound, Superficial [[id number]] Collected: 04/06/19 1546 Order Status: Completed Lab Status: Final result Updated: 04/08/1937 Specimen: Body Fluid from Heel, Right Special Requests RIGHT FOOT Special Requests Testing performed at [facility];[address] [place] [address] RESULT -- 1+ NORMAL SKIN CELSA ISOLATED RESULT NO FURTHER WORKUP RESULT Testing performed at [facility], [address] [place] [address] Comment: Testing performed at [facility], [address] [place] [address] Culture, Blood [[id number]] Collected: 04/06/19337 Order Status: Completed Lab Status: Final result Updated: 04/12/1952 Specimen: Peripheral Blood Special Requests R WRIST Special Requests Testing performed at [facility];[address] [place] [address] RESULT NO GROWTH 6 DAYS RESULT Testing performed at [facility], [address] [place] [address] Comment: Testing performed at [facility], [address] [place] [address] Culture, Blood [[id number]] Collected: 04/06/19 0331 Order Status: Completed Lab Status: Final result Updated: 04/12/19 0652 Specimen: Peripheral Blood Special Requests L WRIST Special Requests Testing performed at [facility];[address] [place] [address];[place] [address] RESULT NO GROWTH 6 DAYS RESULT Testing performed at [facility], [address] [place] [address] Comment: Testing performed at [facility], [address] [facility], [place] [address] Microbiology Results (72 hrs) No results found [...] note might be different from the original. [facility] Service: Hospitalist Progress Note Pt: Reagan Shepard [...] hematuria. Recent history notable for admit to [facility] from 03/28/19 to 04/04/2019 [...] Received 8 days of IV antibiotics at [facility] discharged home on with augmentin, now readmitted on 04/06 at [facility] and started on rocephin after sending [...] SQH Code status: Full Dispo: back to [facility] pending cardiac evaluation/optimization, vascular bypass donna [...] 04/16/2019 3:21 PM Sunshine Chen, [facility] - 04/16/2019 12:18 PM PST Vancomycin Dosing [...] Patient encouraged to discuss medication changes with program director substance abuse ragini stanley to stopping medications or making any changes. Patient's questions answered. Heart Fail ure Hot Line number provided to patient. Face to face time was spent with patient providing counseling and education for congestive heart failure. Bhanu Wakefield P A-C - 04/16/2019 8:43 AM PST [facility] Service: Vascular Surgery Progress Note SUBJECTIVE Patient Summary: 74 y.o. man with complex medical issues and LE ischemic ulcers, he wa s recently admitted to the [facility] from 03/28/19 to 04/04/19 where he was treated/ diagnosed with systolic heart failure, type 2 IA/NSTEMI, SHAE, ARF. O2 desaturation brought him from SNF to [facility] and current admission today with CHF and [...] MD - 04/15/2019 1 2:48 PM PST [facility] Service: Hospitalist Progress Note Pt: Reagan Shepard AGE/SEX: 74 y.o. male ROOM: [address] [place] [address] : 1945 PCP: Jamar Manuel MD ADMIT DATE: 04/06/2019 TODAY'S DATE: 04/15/2019 Hospital Day/Hospital Course: LOS: 9 days Mr. Shepard is a 74-year-old gentleman with a history of bilateral nonhealing diabetic trisha t ulcers, and history of TBI, stroke, insulin dependent DM, who presents with CHF exacerbati on with hospital course complicated by gross hematuria. Recent history notable for admit to [facility] from 03/28/19 to 04/04/2019 [...] BNP 587.58* IMAGING: Reviewed in [facility], no new results. PROBLEM LIST Principal Problem: [...] Received 8 days of IV antibiotics at [facility] discharged home on with augmentin, now readmitted on 04/06 at [facility] and started on rocephin after sending [...] SQH Code status: Full Dispo: back to [facility] pending cardiac evaluation/optimization, vascular bypass donna wero, final ID recs, likely 4-5 more days in hospital Grover Charles MD 12:48 PM 04/15/2019 Portions of this chart may have been copied from previous notes for continuity of care purp ose roctor, Sheila Brown [facility] - 04/15/2019 10:55 AM PST Vancomycin Dosing [...] as indicated. Thank You, Sheila Ahuja, PharmD, [facility] 04/15/2019, 10:41 AM Simba Fenton [...] might be differ ent from the original. [facility] Service: Infectious Diseases Progress Note Hospital Day: [...] Component Value Units Date/Time Culture, Wound, Superficial [[id number]] (Abnormal) (Susceptibility) Collected: 04/06/19 1546 Order Status: Completed Lab Status: Final result Updated: 04/11/19 6130 Specimen: Body Fluid from Heel, Right Special Requests LT FOOT Special Requests Testing performed at [facility];[address] [place] [address];[place] [address] RESULT -- 1+ ENTEROCOCCUS FAECALIS Aminoglycosides (except [...] Sensitive SUSCEPTIBLE JESSICA Final Testing performed at [facility], [address] [place] [address]20 Culture, Wound, Superficial [[id number]] Collected: 04/06/19 1546 Order Status: Completed Lab Status: Final result Updated: 04/08/19 0937 Specimen: Body Fluid from Heel, Right Special Requests RIGHT FOOT Special Requests Testing performed at [facility];[address] [place] [address] RESULT -- 1+ NORMAL SKIN CELSA ISOLATED RESULT NO FURTHER WORKUP RESULT Testing performed at [facility], [address] [place] [address] Comment: Testing performed at [facility], [address] [place] [address] 28094 Culture, Blood [[id number]] Collected: 04/06/198 Order Status: Completed Lab Status: Final result Updated: 04/12/19 0652 Specimen: Peripheral Blood Special Requests R WRIST Special Requests Testing performed at [facility];[address] [place] [address]39 RESULT NO GROWTH 6 DAYS RESULT Testing performed at [facility], [address] [place] [address] 8[address] Comment: Testing performed at [facility], [address] [place] [address] 26279 Culture, Blood [[id number]] Collected: 04/06/19 033 Order Status: Completed Lab Status: Final result Updated: 04/12/19 0652 Specimen: Peripheral Blood Special Requests L WRIST Special Requests Testing performed at [facility];[address] [facility];[place] [address] RESULT NO GROWTH 6 DAYS RESULT Testing performed at [facility], [address] [place] [address] Comment: Testing performed at [facility], [address] [place] [address] Microbiology Results (72 hrs) No results found [...] - 04/14/2019 1:[address] Richardosn who is in agreement with double lumen PI CC insertion. elvin, Zachary gan MD - 04/14/2019 1:29 PM PSTFormatting of this note might be different from the origin [facility] Service: Hospitalist Progress Note Pt: Reagan Shepard AGE/SEX: 74 y.o. male ROOM: [facility]/4452- : 1945 PCP: Jamar Manuel MD ADMIT DATE: 04/06/2019 TODAY'S DATE: 04/14/2019 Hospital Day/Hospital Course: LOS: 8 days Mr. Shepard is a 74-year-old gentleman with a history of bilateral nonhealing diabetic trisha t ulcers, and history of TBI, stroke, insulin dependent DM, who presents with CHF exacerbati on with hospital course complicated by gross hematuria. Recent history notable for admit to [facility] from 03/28/19 to 04/04/2019 [...] Received 8 days of IV antibiotics at [facility] discharged home on with augmentin, now readmitted on 04/06 at [facility] and started on rocephin after sending [...] date with age appropriate cancer screening PPx: [facility] Code status: Full Dispo: back to [facility] pending improvement in gross hematuria, CHF exacerbation, re peat angiogram, final ID recs, likely 4-5 more days in hospital Grover Charles MD 1:29 PM 04/14/2019 Portions of this chart may have been copied from previous notes for continuity of care purp ose Lyric Molina RN - 04/14/2019 1:27 PM PST [facility] Service: Wound Care Follow Up Note Hospital [...] any additional questions. Lyric Mclain RN, CMSRN, [facility] Inpatient Wound Ostomy Care [phone] 04/14/2019 1:29 PM Dheeraj Barraza, PT - 04/14/2019 12:57 PM PSTMISSED THERAPY VISIT Physical Therapy attempted to see the following patient today: Regaan Shepard Missed Visit (patient declined) Pt declined therapy today stating that "I have already been up to a chair yesterday and tod ay and I don't want to be up today". Advised pt that being up is going to help him improve a nd he continued to decline therapy. Vandaan Peterson RN - 04/14/2019 7:47 AM PSTLeft [...] stable.Vandana Luciano RN Meghan Alejandre [facility] - 04/14/2019 6:31 AM PST Vancomycin Dosing [...] Shaver MD - 04/13/2019 4:02 PM PST [facility] Service: Hospitalist Progress Note Pt: Reagan Shepard [...] hematuria. Recent history notable for admit to [facility] from 03/28/19 to 04/04/2019 [...] Received 8 days of IV antibiotics at [facility] discharged home on with augmentin, now readmitted on 04/06 at [facility] and started on rocephin after sending [...] date with age appropriate cancer screening PPx: [facility] Code status: Full Dispo: back to [facility] pending improvement in gross hematuria, CHF exacerbation, re peat angiogram, final ID recs, likely 4-5 more days in hospital Grover Cahrles MD 4:02 PM 04/13/2019 Portions of this [...] 113.3 kg Adjusted body weight: 89.1 kg [place] body weight: 73 kg Current Vital Signs: [...] due to patient being [facility]. Drawing a level once the patient returns [...] as indicated. Thank You, Sunshine Love, PharmD, [facility] 04/13/19 3:20 PM Nandini Sánchez se, MD - 04/13/2019 10:54 AM PST [facility] Service: Infectious Diseases Progress Note Hospital Day: [...] Component Value Units Date/Time Culture, Wound, Superficial [[id number]] (Abnormal) (Susceptibility) Collected: 04/06/19 1546 Order Status: Completed Lab Status: Final result Updated: 04/11/1928 Specimen: Body Fluid from Heel, Right Special Requests LT FOOT Special Requests Testing performed at [facility];[address] [place] [address];[place] [address] RESULT -- 1+ ENTEROCOCCUS FAECALIS Aminoglycosides (except [...] Resistant RESISTANT JESSICA Final Oxacillin Resistant RESISTANT EJSSICA Final Tetracycline Resistant RESISTANT JESSICA Final Trimethoprim + Sulfamethoxazole Resistant RESISTANT JESSICA Final Vancomycin Sensitive SUSCEPTIBLE JESSICA Final Testing performed at [facility], [address] [place] [address], [place] [address] Culture, Wound, Superficial [[id number]] Collected: 04/06/19 1546 Order Status: Completed Lab Status: Final result Updated: 04/08/19 0937 Specimen: Body Fluid from Heel, Right Special Requests RIGHT FOOT Special Requests Testing performed at [facility];[address] [place] [address] RESULT -- 1+ NORMAL SKIN CELSA ISOLATED RESULT NO FURTHER WORKUP RESULT Testing performed at [facility], [address] [place] [address] Comment: Testing performed at [facility], [address] [place] [address] 69845 Culture, Blood [[id number]] Collected: 04/06/19 0338 Order Status: Completed Lab Status: Final result Updated: 04/12/19 0652 Specimen: Peripheral Blood Special Requests R WRIST Special Requests Testing performed at [facility];[address] [place] [address] 77372 RESULT NO GROWTH 6 DAYS RESULT Testing performed at [facility], [address] [place] [address] 9[address] Comment: Testing performed at [facility], [address] [place] [address] 68433 Culture, Blood [[id number]] Collected: 04/06/19 0331 Order Status: Completed Lab Status: Final result Updated: 04/12/19 0652 Specimen: Peripheral Blood Special Requests L WRIST Special Requests Testing performed at [facility];[address] [place] [address]605 RESULT NO GROWTH 6 DAYS RESULT Testing performed at [facility], [address] [place] [address] 9[address] Comment: Testing performed at [facility], [address] [place] [address] 99706 Microbiology Results (72 hrs) No results found [...] might be different from the o riginal. [facility] Service: Vascular Surgery Progress Note SUBJECTIVE Patient Summary: 74 y.o. man with complex medical issues and LE ischemic ulcers, he wa s recently admitted to the [facility] from 03/28/19 to 04/04/19 where he was treated/ diagnosed with systolic heart failure, type 2 IA/NSTEMI, SHAE, ARF. O2 desaturation brought him from SNF to [facility] and current admission today with CHF and [...] risks. Signed consent obtained. Will proceed to [facility] today for right leg angiogram. Moderate Sedation [...] might be different from the o riginal. [facility] Service: Infectious Diseases Progress Note Hospital Day: [...] Component Value Units Date/Time Culture, Wound, Superficial [[id number]] (Abnormal) (Susceptibility) Collected: 04/06/19 1546 Order Status: Completed Lab Status: Final result Updated: 04/11/19 0728 Specimen: Body Fluid from Heel, Right Special Requests LT FOOT Special Requests Testing performed at [facility];[address] [place] [address];[place] [address] RESULT -- 1+ ENTEROCOCCUS FAECALIS Aminoglycosides (except [...] Sensitive SUSCEPTIBLE JESSICA Final Testing performed at [facility], [address] [place] [address] 48011 Culture, Wound, Superficial [[id number]] Collected: 04/06/19 1546 Order Status: Completed Lab Status: Final result Updated: 04/08/1937 Specimen: Body Fluid from Heel, Right Special Requests RIGHT FOOT Special Requests Testing performed at [facility];[address] [place] [address] RESULT -- 1+ NORMAL SKIN CELSA ISOLATED RESULT NO FURTHER WORKUP RESULT Testing performed at [facility], [address] [place] [address] 6[address] Comment: Testing performed at [facility], [address] [place] [address] 45035 Culture, Blood [[id number]] Collected: 04/06/19337 Order Status: Completed Lab Status: Final result Updated: 04/12/1952 Specimen: Peripheral Blood Special Requests R WRIST Special Requests Testing performed at [facility];[address] [place] [address] 95949 RESULT NO GROWTH 6 DAYS RESULT Testing performed at [facility], [address] [place] [address] 97[address] Comment: Testing performed at [facility], [address] [place] [address] 97515 Culture, Blood [[id number]] Collected: 04/06/19 0331 Order Status: Completed Lab Status: Final result Updated: 04/12/1952 Specimen: Peripheral Blood Special Requests L WRIST Special Requests Testing performed at [facility];[address] [place] [address] 84904 RESULT NO GROWTH 6 DAYS RESULT Testing performed at [facility], [address] [place] [address] Comment: Testing performed at [facility], [address] [place] [address] Microbiology Results (72 hrs) No results found [...] this note might be different from the [facility] Service: Hospitalist Progress Note Pt: Reagan [...] hematuria. Recent history notable for admit to [facility] from 03/28/19 to 04/04/2019 [...] Received 8 days of IV antibiotics at [facility] discharged home on with augmentin, now readmitted on 04/06 at [facility] and started on rocephin after sending [...] H Code status: Full Dispo: back to [facility] pending improvement in gross hematuria, CHF exacerbation, re peat angiogram, final ID recs, likely 4-5 more days in hospital Grover Charles MD 4:43 PM 04/12/2019 Portions of this chart may have been copied from previous notes for continuity of care purp ose Bhanu Wakefield PA-C - 04/12/2019 4:00 PM PST [facility] Service: Vascular Surgery Progress Note SUBJECTIVE Patient Summary: 74 y.o. man with complex medical issues and LE ischemic ulcers, he wa s recently admitted to the [facility] from 03/28/19 to 04/04/19 where he was treated/ diagnosed with systolic heart failure, type 2 IA/NSTEMI, SHAE, ARF. O2 desaturation brought him from SNF to [facility] and current admission today with CHF and [...] PA-C Vascular Surgery unshine Love, [facility] - 04/12/2019 12:27 PM PST Vancomycin Dosing Per Pharmacy Subjective/Objective Reagan Shepard is a 74 y.o. 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 Additional antimicrobials: zosyn Quadriplegic/Paraplegic: no Diabetes: yes Baseline Serum Creatinine: 0.6 mg/dL Actual weight: 113.3 kg Adjusted body weight: 89.1 kg [place] body weight: 73 kg Current Vital Signs: [...] as indicated. Thank You, Sunshine Love, RosendoD, [facility] 04/12/19 3:27 PM Grover Shaver MD - 04/11/2019 5:06 PM PST [facility] Service: Hospitalist Progress Note Pt: Reagan Shepard [...] hematuria. Recent history notable for admit to [facility] from 03/28/19 to 04/04/2019 [...] denies any fevers, chills, chest pain, dyspnea. Mliler remains in place and he denies any [...] Received 8 days of IV antibiotics at [facility] discharged home on with augmentin, now readmitted on 04/06 at [facility] and started on rocephin after sending [...] above) Code status: Full Dispo: back to [facility] pending improvement in gross hematuria and CHF exacerbation Grover Charles MD 5:06 PM 04/11/2019 Portions of this chart may have been copied from previous notes for continuity of care purp ose roctor, Sheila Brown [facility] - 04/11/2019 2:03 PM PST Vancomycin Dosing Per Pharmacy Subjective/Objective Reagan Shepard is a 74 y.o. 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 Additional antimicrobials: zosyn Quadriplegic/Paraplegic: no Diabetes: yes Baseline Serum Creatinine: 0.6 mg/dL Actual weight: 113.3 kg Adjusted body weight: 89.1 kg [place] body weight: 73 kg Current Vital Signs: [...] IV q12h (14 mg/kg/dose) Rationale: Based on [facility] dosing nomogram, current renal function, and desired [...] might be different from stephanie brown original. [facility] Service: Infectious Diseases Progress Note Hospital Day: [...] Component Value Units Date/Time Culture, Wound, Superficial [[id number]] (Abnormal) (Susceptibility) Collected: 04/06/191545 Order Status: Completed Lab Status: Final result Updated: 04/11/19 0728 Specimen: Body Fluid from Heel, Right Special Requests LT FOOT Special Requests Testing performed at [facility];[address] [place] [address]694 RESULT -- 1+ ENTEROCOCCUS FAECALIS Aminoglycosides (except [...] Sensitive SUSCEPTIBLE JESSICA Final Testing performed at [facility], [address] [place] [address] 64673 Culture, Wound, Superficial [[id number]] Collected: 04/06/191545 Order Status: Completed Lab Status: Final result Updated: 04/08/19 0937 Specimen: Body Fluid from Heel, Right Special Requests RIGHT FOOT Special Requests Testing performed at [facility];[address] [place] [address] 38541 RESULT -- 1+ NORMAL SKIN CELSA ISOLATED RESULT NO FURTHER WORKUP RESULT Testing performed at [facility], [address] [place] [address] Comment: Testing performed at [facility], [address] [place] [address] 50475 Culture, Blood [[id number]] Collected: 04/06/19337 Order Status: Completed Lab Status: Preliminary result Updated: 04/07/19812 Specimen: Peripheral Blood Special Requests R WRIST Special Requests Testing performed at [facility];[address] [place] [address] 69375 RESULT NO GROWTH AT THIS TIME RESULT Testing performed at [facility], [address] [place] [address] 8[address]36 Comment: Testing performed at [facility], [address] [place] [address] 67885 Culture, Blood [[id number]] Collected: 04/06/19330 Order Status: Completed Lab Status: Preliminary result Updated: 04/07/19812 Specimen: Peripheral Blood Special Requests L WRIST Special Requests Testing performed at [facility];[address] [place] [address] 42645 RESULT NO GROWTH AT THIS TIME RESULT Testing performed at [facility], [address] [place] [address] 82761 Comment: Testing performed at [facility], [address] [place] [address] 01805 Microbiology Results (72 hrs) No results found [...] Shaver MD - 04/10/2019 4:51 PM PST [facility] Service: Hospitalist Progress Note Pt: Reagan Shepard AGE/SEX: 74 y.o. male ROOM: [facility]- : 1945 PCP: Jamar Manuel MD ADMIT DATE: 04/06/2019 TODAY'S DATE: 04/10/2019 Hospital Day/Hospital Course: LOS: 4 days Mr. Shepard is a 74-year-old gentleman with a history of bilateral nonhealing diabetic trisha t ulcers, and history of TBI, stroke, insulin dependent DM, who presents with CHF exacerbati on with hospital course complicated by gross hematuria. Recent history notable for admit to [facility] from 03/28/19 to 04/04/2019 [...] Received 8 days of IV antibiotics at [facility] discharged home on with augmentin, now readmitted on 04/06 at [facility] and started on rocephin after sending [...] above) Code status: Full Dispo: back to [facility] pending improvement in gross hematuria and CHF exacerbation Grover Charles MD 4:51 PM 04/10/2019 Portions of this chart may have been copied from previous notes for continuity of care purp ose Hero Sánchez MD - 04/10/2019 2:27 PM PSTFormatting of this note might be different from the [facility]: Infectious Diseases Progress Note Hospital [...] Component Value Units Date/Time Culture, Wound, Superficial [[id number]] (Abnormal) (Susceptibility) Collected: 04/06/19 1546 Order Status: Completed Lab Status: Preliminary result Updated: 04/10/19 0930 Specimen: Body Fluid from Heel, Right Special Requests LT FOOT Special Requests Testing performed at [facility];[address] [place] [address] 76361 RESULT -- 1+ ENTEROCOCCUS FAECALIS Aminoglycosides (except for high-level resistance testing), cephalosporins, clindamycin, an d trimethoprim-sulfamethoxazole may appear active in vitro but they are not effective clinic ally. RESULT -- 1+ ENTEROBACTER CLOACAE COMPLEX RESULT -- 1+ STAPHYLOCOCCUS AUREUS RESULT SUSCEPTIBILITY TO FOLLOW RESULT Testing performed at [facility], [address] [place] [address] 96993 Susceptibility Enterococcus faecalis (1) Antibiotic Interpretation Microscan [...] Sensitive SUSCEPTIBLE JESSICA Preliminary Testing performed at [facility], [address] [place] [address] 86903 Culture, Wound, Superficial [[id number]] Collected: 04/06/191545 Order Status: Completed Lab Status: Final result Updated: 04/08/19 0937 Specimen: Body Fluid from Heel, Right Special Requests RIGHT FOOT Special Requests Testing performed at [facility];[address] [place] [address] 93847 RESULT -- 1+ NORMAL SKIN CELSA ISOLATED RESULT NO FURTHER WORKUP RESULT Testing performed at [facility], [address] [place] [address] 47300 Comment: Testing performed at [facility], [address] [place] [address] 20649 Culture, Blood [[id number]] Collected: 01/337 Order Status: Completed Lab Status: Preliminary result Updated: 04/07/19812 Specimen: Peripheral Blood Special Requests R WRIST Special Requests Testing performed at [facility];[address] [place] [address] 32549 RESULT NO GROWTH AT THIS TIME RESULT Testing performed at [facility], [address] [place] [address] 44082 Comment: Testing performed at [facility], [address] [place] [address] 98058 Culture, Blood [[id number]] Collected: 04/06/19330 Order Status: Completed Lab Status: Preliminary result Updated: 04/07/19812 Specimen: Peripheral Blood Special Requests L WRIST Special Requests Testing performed at [facility];[address] [place] [address] 46171 RESULT NO GROWTH AT THIS TIME RESULT Testing performed at [facility], [address] [place] [address] 03203 Comment: Testing performed at [facility], [address] [place] [address] 44532 Microbiology Results (72 hrs) No results found [...] might be different from the ramiro falcon [facility] Service: Urology Progress Note Hospital Day: LOS: [...] essential h ypertension, insulin-dependent diabetes, history of IA, GERD, ischemic stroke, diffuse signi ficant peripheral [...] Lujan MD - 04/09/2019 6:21 PM PST [facility] Service: Urology Progress Note Hospital Day: LOS: 3 days Post-Op Day: * No surgery found * SUBJECTIVE Events Overnight: This 74-year-old gentleman with a known history of insulin-dependen t diabetes mellitus, advanced peripheral vascular disease, osteomyelitis of right foot, diab etic foot ulcers which are significant and advanced in both feet, left hemiparesis, essentia l hypertension, hyperkalemia, history of GERD and non-STEMI IA, history of bacteremia, histo ry of stroke. [...] Color, UA STRAW Clarity, UA CLEAR Specific [place], Urine 1.006 1.002 - 1.030 Leukocyte esterase, [...] failure. Signed by: Madison Solis, [facility] Sign Date/Time: 04/09/2019 9:25 AM PROBLEM [...] longstanding history of diabetes, hypertension, GERD, ac [place] left hemiparesis, essential hypertension and very advanced [...] might be different from the terry miller [facility] Service: Vascular Surgery Progress Note SUBJECTIVE Patient Summary: 74 y.o. man with complex medical issues and LE ischemic ulcers, he wa s recently admitted to the [facility] from 03/28/19 to 04/04/19 where he was treated/ diagnosed with systolic heart failure, type 2 IA/NSTEMI, SHAE, ARF. O2 desaturation brought him from SNF to [facility] and current admission today with CHF and [...] will have him scheduled for 04/12/2019 at [facility] Director [employer] for his first leg, then will plan [...] Hospitalist Progress Note Reagan Shepard 74 y.o. [id number] male Jamar Manuel MD Hospital Day: LOS: 3 days Patient Summary: 74-year-old gentleman with past medical history of bilateral nonheali ng diabetic foot ulcer, and history of traumatic brain injury, stroke, diabetes mellitus typ e 2 insulin-dependent who [facility] [facility] from 03/28/21 020 with acute hypoxic respiratory failure secondary to systolic CHF exacerbation with eject ion fraction of 40%, CTA chest negative for PE, troponin was minimally elevated 0.44 treated conservatively with medical therapy discharge to [facility] who went back to [facility] [...] 04/09/2019 1044 Gross per 24 hour Intake 48882 ml Output 9850 ml Net 856 ml [...] received 8 days of IV antibiotic at [facility] discharged home on on Augmentin readmitted on at [facility] and started on Rocephin after sending 2 [...] might be different from the o sheryl. [facility] Service: Podiatry Progress Note Hospital Day: LOS: 3 days Post-Op Day: * No surgery found * SUBJECTIVE Patient Summary: The patient is 74 y.o. male with significant cardiac and IDDM2 past medical history with recent admissions to [facility] where he was found to have el evated troponin level and he became decompensated and desaturated and was transferred to [facility] for a higher level [...] Ady Mata RN - 04/08/2019 9:49 PM [id number]: pt a/o to all, vss. cbi in [...] Hospitalist Progress Note Reagan Shepard 74 y.o. [id number] male Jamar Manuel MD Hospital Day: LOS: 2 days Patient Summary: 74-year-old gentleman with past medical history of bilateral nonheali ng diabetic foot ulcer, and history of traumatic brain injury, stroke, diabetes mellitus typ e 2 insulin-dependent who was recently admitted to [facility] from 03/28/21 020 with acute hypoxic respiratory failure secondary to systolic CHF exacerbation with eject ion fraction of 40%, CTA chest negative for PE, troponin was minimally elevated 0.44 treated conservatively with medical therapy discharge to [facility] who went back to [facility] [...] Augmentin. Patient was evaluated by Dr. New Rueals from cardiology who recommend medical ma nagement [...] received 8 days of IV antibiotic at [facility] discharged home on on Augmentin readmitted on at [facility] and started on Rocephin after sending 2 [...] might be different from trina allen original. [facility] Service: Cardiology Progress Note Hospital Day: LOS: [...] Nandini Barboza RN - 04/07/2019 10:48 PM [id number]: pt a/o to all, occasionally forgetful, vss. [...] Hospitalist Progress Note Reagan Shepard 74 y.o. [id number] male Jamar Manuel MD Hospital Day: LOS: 1 day Patient Summary: 74-year-old gentleman with past medical history of bilateral nonheali ng diabetic foot ulcer, and history of traumatic brain injury, stroke, diabetes mellitus typ e 2 insulin-dependent who was recently admitted to [facility] from 03/28/21 020 with acute hypoxic respiratory failure secondary to systolic CHF exacerbation with eject ion fraction of 40%, CTA chest negative for PE, troponin was minimally elevated 0.44 treated conservatively with medical therapy discharge to [facility] who went back to [facility] [...] received 8 days of IV antibiotic at [facility] discharged home on on Augmentin readmitted on at [facility] and started on Rocephin after sending 2 [...] might be different from trina allen original. [facility] Service: Cardiology Progress Note Hospital Day: LOS: [...] Andrés Novoa RN - 04/06/2019 10:15 AM [facility] Service: Wound/Ostomy Care Progress Note [...] | | | | right foot ([facility]) | 04/20/2019 until | | | | | | 04/20/2020 | + +---------+--------+ + + | C-Reactive Protein | Lab | Routin | Other | Weekly for 6 | | | | e | osteomyelitis of | Occurrences starting | | | | | right foot ([facility]) | 04/20/2019 until | | | | | | 04/20/2020 | + +---------+--------+ + + | Sedimentation Rate | Lab | Routin | Other | Weekly for 6 | | | | e | osteomyelitis of | Occurrences starting | | | | | right foot ([facility]) | 04/20/2019 until | | | | [...] PST | ([facility]) Peripheral | | | | | | vascular disease | | | | | | ([facility]) Other | | | | | | osteomyelitis of | | | | | | right foot ([facility]) | | | | | | Essential | | | | | | hypertension Acute | | | | | | left hemiparesis | | | | | | ([facility]) | | + +--------+ + + + [...] | | | | | performed at [facility] | | | | | | [facility];[place], [place] | | | | | | [address] | | | | + + + + + + + + | Specimen | + + | Blood | + + + + + + + | Performing | Address | City/State/Zipcode | Phone Number | | Organization | | | | + + + + + | [facility] | [address] | [place] [address] | [phone] | + + + + + POC Glucose (04/21/2019 11:54 AM PST) + + + + + + | Component | Value | Ref Range | Performed | Pathologist | | | | | At | Signature | + + + + + + | Glucose, | 164 (H)Comment: Testing | 65 - 99 mg/dL | [facility] | | | POC | performed at [facility];[address] | | LABORATORY | | | | [address];[place], [place] | | | | | | [address] | | | | + + + + + + + + | Specimen | + + | | + + + + + + + | Performing | Address | City/State/Zipcode | Phone Number | | Organization | | | | + + + + + | [facility] | [address] | [place] [address] | [phone] | + + + + + POC Glucose (04/21/2019 8:10 AM PST) + + + + + + | Component | Value | Ref Range | Performed | Pathologist | | | | | At | Signature | + + + + + + | Glucose, | 131 (H)Comment: Testing | 65 - 99 mg/dL | [facility] | | | POC | performed at [facility];[address] | | LABORATORY | | | | [address];[place] | | | | | | [address] | | | | + + + + + + + + | Specimen | + + | | + + + + + + + | Performing | Address | City/State/Zipcode | Phone Number | | Organization | | | | + + + + + | [facility] | [address] | [place] [address] | [phone] | + + + + + POC [...] | | | POC | performed at [facility];[address] | | LABORATORY | | | | [address];[place], [place] | | | | | | [address] | | | | + + + + + + + + | Specimen | + + | | + + + + + + + | Performing | Address | City/State/Zipcode | Phone Number | | Organization | | | | + + + + + | [facility] | [address] | [place] [address] | [phone] | + + + + + POC [...] | | | POC | performed at [facility];[address] | | LABORATORY | | | | [address];[place] | | | | | | [address] | | | | + + + + + + + + | Specimen | + + | | + + + + + + + | Performing | Address | City/State/Zipcode | Phone Number | | Organization | | | | + + + + + | [facility] | [address] | [place] [address] | [phone] | + + + + + POC [...] | | | POC | performed at [facility];[address] | | LABORATORY | | | | [address];[place], [place] | | | | | | [address] | | | | + + + + + + + + | Specimen | + + | | + + + + + + + | Performing | Address | City/State/Zipcode | Phone Number | | Organization | | | | + + + + + | [facility] | [address] | [place] [address] | [phone] | + + + + + POC [...] | | | POC | performed at [facility];[address] | | LABORATORY | | | | [address];[place], [place] | | | | | | [address] | | | | + + + + + + + + | Specimen | + + | | + + + + + + + | Performing | Address | City/State/Zipcode | Phone Number | | Organization | | | | + + + + + | [facility] | [address] | [place] [address] | [phone] | + + + + + POC Glucose (04/20/2019 12:44 PM PST) + + + + + + | Component | Value | Ref Range | Performed | Pathologist | | | | | At | Signature | + + + + + + | Glucose, | 273 (H)Comment: Testing | 65 - 99 mg/dL | [facility] | | | POC | performed at [facility];[address] | | LABORATORY | | | | [address];[place], [place] | | | | | | [address] | | | | + + + + + + + + | Specimen | + + | | + + + + + + + | Performing | Address | City/State/Zipcode | Phone Number | | Organization | | | | + + + + + | [facility] | [address] | [place] [address] | [phone] | + + + + + Vancomycin Level (04/20/2019 12:39 PM PST) + + + + + + | Component | Value | Ref Range | Performed | Pathologist | | | | | At | Signature | + + + + + + | Vancomycin | 18.3Comment: Testing | ug/mL | [facility] | | | Random, | performed at [facility];[address] | | LABORATORY | | | Serum | [address];[place] | | | | | | [address] | | | | + + + + + + + + | Specimen | + + | Blood | + + + + + + + | Performing | Address | City/State/Zipcode | Phone Number | | Organization | | | | + + + + + | [facility] | [address] | [place] [address] | [phone] | + + + + + POC [...] | | | POC | performed at [facility];[address] | | LABORATORY | | | | [address];[place] | | | | | | [address] | | | | + + + + + + + + | Specimen | + + | | + + + + + + + | Performing | Address | City/State/Zipcode | Phone Number | | Organization | | | | + + + + + | [facility] | [address] | [place] [address] | [phone] | + + + + + POC Glucose (04/20/2019 8:16 AM PST) + + + + + + | Component | Value | Ref Range | Performed | Pathologist | | | | | At | Signature | + + + + + + | Glucose, | 300 (H)Comment: Testing | 65 - 99 mg/dL | [facility] | | | POC | performed at [facility];[address] | | LABORATORY | | | | [address];[place] | | | | | | [address] | | | | + + + + + + + + | Specimen | + + | | + + + + + + + | Performing | Address | City/State/Zipcode | Phone Number | | Organization | | | | + + + + + | [facility] | [address] | [place] [address] | [phone] | + + + + + POC [...] | | | POC | performed at [facility];[address] | | LABORATORY | | | | [address];[place], [place] | | | | | | [address] | | | | + + + + + + + + | Specimen | + + | | + + + + + + + | Performing | Address | City/State/Zipcode | Phone Number | | Organization | | | | + + + + + | [facility] | [address] | [place] [address] | [phone] | + + + + + POC [...] | | | POC | performed at [facility];[address] | | LABORATORY | | | | [address];[place] | | | | | | [address] | | | | + + + + + + + + | Specimen | + + | | + + + + + + + | Performing | Address | City/State/Zipcode | Phone Number | | Organization | | | | + + + + + | [facility] | [address] | [place] [address] | [phone] | + + + + + POC Glucose (04/19/2019 12:44 PM PST) + + + + + + | Component | Value | Ref Range | Performed | Pathologist | | | | | At | Signature | + + + + + + | Glucose, | 209 (H)Comment: Testing | 65 - 99 mg/dL | [facility] | | | POC | performed at [facility];[address] | | LABORATORY | | | | [address];[place], [place] | | | | | | [address] | | | | + + + + + + + + | Specimen | + + | | + + + + + + + | Performing | Address | City/State/Zipcode | Phone Number | | Organization | | | | + + + + + | [facility] | [address] | [place] [address] | [phone] | + + + + + POC [...] | | | POC | performed at [facility];[address] | | LABORATORY | | | | [address];[place], [place] | | | | | | [address] | | | | + + + + + + + + | Specimen | + + | | + + + + + + + | Performing | Address | City/State/Zipcode | Phone Number | | Organization | | | | + + + + + | [facility] | [address] | [place] [address] | [phone] | + + + + + Basic [...] | >60Comment: GFR <60: | >60 | [facility] | | | GFR | CHRONIC [...] | | | | | | MDRD [facility] traceable | | | | | | equation.Testing | | | | | | performed at [facility], [address] | | | | | | [facility], | | | | | | [place] [address] | | | | + + + + + + + + | Specimen | + + | Blood | + + + + + + + | Performing | Address | City/State/Zipcode | Phone Number | | Organization | | | | + + + + + | [facility] | [address] | [place] [address] | [phone] | + + + + + CBC [...] | | | | | performed at [facility], [address] | | | | | | [facility], | | | | | | [place] [address] | | | | | |MICRO | | | | | |NORMAL PLT MORPH | | | | | |Testing performed at [facility], [address] [facility], [place] [address] | | | | | | | | | | + + +---- + + + + + | Specimen | + + | Blood | + + + + + + + | Performing | Address | City/State/Zipcode | Phone Number | | Organization | | | | + + + + + | [facility] | [address] | [place] [address] | [phone] | + + + + + POC [...] | | | POC | performed at [facility];[address] | | LABORATORY | | | | [address];[place] | | | | | | [address] | | | | + + + + + + + + | Specimen | + + | | + + + + + + + | Performing | Address | City/State/Zipcode | Phone Number | | Organization | | | | + + + + + | [facility] | [address] [facility] [facility] | [place] [address] | [phone] | + + + + + POC Glucose (04/18/2019 9:02 PM PST) + + + + + + | Component | Value | Ref Range | Performed | Pathologist | | | | | At | Signature | + + + + + + | Glucose, | 295 (H)Comment: Testing | 65 - 99 mg/dL | [facility] | | | POC | performed at [facility];[address] | | LABORATORY | | | | [address];[place] | | | | | | [address] | | | | + + + + + + + + | Specimen | + + | | + + + + + + + | Performing | Address | City/State/Zipcode | Phone Number | | Organization | | | | + + + + + | [facility] | [address] | [place] [address] | [phone] | + + + + + POC Glucose (04/18/2019 8:01 PM PST) + + + + + + | Component | Value | Ref Range | Performed | Pathologist | | | | | At | Signature | + + + + + + | Glucose, | 245 (H)Comment: Testing | 65 - 99 mg/dL | [facility] | | | POC | performed at [facility];[address] | | LABORATORY | | | | [address];[place] | | | | | | [address] | | | | + + + + + + + + | Specimen | + + | | + + + + + + + | Performing | Address | City/State/Zipcode | Phone Number | | Organization | | | | + + + + + | [facility] | [address] | [place] [address] | [phone] | + + + + + POC [...] | | | POC | performed at [facility];[address] | | LABORATORY | | | | [address];[place], [place] | | | | | | [address] | | | | + + + + + + + + | Specimen | + + | | + + + + + + + | Performing | Address | City/State/Zipcode | Phone Number | | Organization | | | | + + + + + | [facility] | [address] | [place] [address] | [phone] | + + + + + POC [...] | | | POC | performed at [facility];[address] | | LABORATORY | | | | [address];[place] | | | | | | [address] | | | | + + + + + + + + | Specimen | + + | | + + + + + + + | Performing | Address | City/State/Zipcode | Phone Number | | Organization | | | | + + + + + | [facility] | [address] | [place] [address] | [phone] | + + + + + NM [...] | | | POC | performed at [facility];[address] | | LABORATORY | | | | [address];[place], [place] | | | | | | [address] | | | | + + + + + + + + | Specimen | + + | | + + + + + + + | Performing | Address | City/State/Zipcode | Phone Number | | Organization | | | | + + + + + | [facility] | [address] | [place] [address] | [phone] | + + + + + Basic [...] 8.0 (L) | 8.5 - 10.5 | [facility] | | | | | mg/dL | LABORATORY | | + + + + + + | Estimated | >60Comment: GFR <60: | >60 | [facility] | | | GFR | CHRONIC [...] | | | | | performed at [facility] | | | | | | [facility];[place], [place] | | | | | | [address] | | | | + + + + + + + + | Specimen | + + | Blood | + + + + + + + | Performing | Address | City/State/Zipcode | Phone Number | | Organization | | | | + + + + + | [facility] | [address] | [place] [address] | [phone] | + + + + + CBC [...] | | | Estimate | performed at [facility];[address] | | LABORATORY | | | | [address];[place] | | | | | | [address] | | | | + + + + + + + + | Specimen | + + | Blood | + + + + + + + | Performing | Address | City/State/Zipcode | Phone Number | | Organization | | | | + + + + + | [facility] | [address] | [place] [address] | [phone] | + + + + + POC [...] | | | POC | performed at [facility];[address] | | LABORATORY | | | | [address];[place], [place] | | | | | | [address] | | | | + + + + + + + + | Specimen | + + | | + + + + + + + | Performing | Address | City/State/Zipcode | Phone Number | | Organization | | | | + + + + + | [facility] | [address] | [place] [address] | [phone] | + + + + + POC [...] | | | POC | performed at [facility];[address] | | LABORATORY | | | | [address];[place] | | | | | | [address] | | | | + + + + + + + + | Specimen | + + | | + + + + + + + | Performing | Address | City/State/Zipcode | Phone Number | | Organization | | | | + + + + + | [facility] | [address] | [place] [address] | [phone] | + + + + + Vancomycin, [...] | | | | | performed at [facility] | | | | | | [facility];[place], [place] | | | | | | [address] | | | | + + + + + + + + | Specimen | + + | Blood | + + + + + + + | Performing | Address | City/State/Zipcode | Phone Number | | Organization | | | | + + + + + | [facility] | [address] | [place] [address] | [phone] | + + + + + POC Glucose (04/17/2019 12:05 PM PST) + + + + + + | Component | Value | Ref Range | Performed | Pathologist | | | | | At | Signature | + + + + + + | Glucose, | 200 (H)Comment: Testing | 65 - 99 mg/dL | [facility] | | | POC | performed at [facility];[address] | | LABORATORY | | | | [address];[place] | | | | | | [address] | | | | + + + + + + + + | Specimen | + + | | + + + + + + + | Performing | Address | City/State/Zipcode | Phone Number | | Organization | | | | + + + + + | [facility] | [address] | [place] [address] | [phone] | + + + + + POC [...] | | | POC | performed at [facility];[address] | | LABORATORY | | | | [address];[place] | | | | | | [address] | | | | + + + + + + + + | Specimen | + + | | + + + + + + + | Performing | Address | City/State/Zipcode | Phone Number | | Organization | | | | + + + + + | [facility] | [address] | [place] [address] | [phone] | + + + + + POC [...] | | | POC | performed at [facility];[address] | | LABORATORY | | | | [address];[place], [place] | | | | | | [address] | | | | + + + + + + + + | Specimen | + + | | + + + + + + + | Performing | Address | City/State/Zipcode | Phone Number | | Organization | | | | + + + + + | [facility] | [address] | [place] [address] | [phone] | + + + + + Basic [...] | >60Comment: GFR <60: | >60 | [facility] | | | GFR | CHRONIC [...] | | | | | performed at [facility], [address] | | | | | | [facility], | | | | | | [place] [address] | | | | + + + + + + + + | Specimen | + + | Blood | + + + + + + + | Performing | Address | City/State/Zipcode | Phone Number | | Organization | | | | + + + + + | [facility] | [address] | [place] [address] | [phone] | + + + + + CBC [...] | | | | | performed at [facility], [facility] [address] | | | | | | [facility], | | | | | | [place] [address] | | | | | |MICRO | | | | | |NORMAL PLT MORPH | | | | | |Testing performed at [facility], [facility] [place] [address] | | | | | | | | | | + + +---- + + + + + | Specimen | + + | Blood | + + + + + + + | Performing | Address | City/State/Zipcode | Phone Number | | Organization | | | | + + + + + | [facility] | [address] | [place] [address] | [phone] | + + + + + POC Glucose (04/16/2019 8:57 PM PST) + + + + + + | Component | Value | Ref Range | Performed | Pathologist | | | | | At | Signature | + + + + + + | Glucose, | 96Comment: Testing | 65 - 99 mg/dL | [facility] | | | POC | performed at [facility];[address] | | LABORATORY | | | | [address];[place] | | | | | | [address] | | | | + + + + + + + + | Specimen | + + | | + + + + + + + | Performing | Address | City/State/Zipcode | Phone Number | | Organization | | | | + + + + + | [facility] | [address] | [place] [address] | [phone] | + + + + + POC [...] | | | POC | performed at [facility];[address] | | LABORATORY | | | | [address];[place], [place] | | | | | | [address] | | | | + + + + + + + + | Specimen | + + | | + + + + + + + | Performing | Address | City/State/Zipcode | Phone Number | | Organization | | | | + + + + + | [facility] | [address] | [place] [address] | [phone] | + + + + + POC [...] | | | POC | performed at [facility];[address] | | LABORATORY | | | | [address];[place], [place] | | | | | | [address] | | | | + + + + + + + + | Specimen | + + | | + + + + + + + | Performing | Address | City/State/Zipcode | Phone Number | | Organization | | | | + + + + + | [facility] | [address] [facility] | [place] [address] | [phone] | + + + + + POC [...] | | | POC | performed at [facility];[address] | | LABORATORY | | | | [address];[place], [place] | | | | | | [address] | | | | + + + + + + + + | Specimen | + + | | + + + + + + + | Performing | Address | City/State/Zipcode | Phone Number | | Organization | | | | + + + + + | [facility] | [address] | [place] [address] | [phone] | + + + + + CBC [...] | | | | | performed at [facility], [address] | | | | | | [facility], | | | | | | [place] [address] | | | | | |MICRO | | | | | |NORMAL PLT MORPH | | | | | |Testing performed at [facility], [address] [facility], [place] [address] | | | | | | | | | | + + +---- + + + + + | Specimen | + + | Blood | + + + + + + + | Performing | Address | City/State/Zipcode | Phone Number | | Organization | | | | + + + + + | [facility] | [address] | [place] [address] | [phone] | + + + + + Basic [...] W | | | | | | [facility], | | | | | | [place] [address] | | | | + + + + + + + + | Specimen | + + | Blood | + + + + + + + | Performing | Address | City/State/Zipcode | Phone Number | | Organization | | | | + + + + + | [facility] | [address] | [place] [address] | [phone] | + + + + + POC Glucose (04/15/2019 9:03 PM PST) + + + + + + | Component | Value | Ref Range | Performed | Pathologist | | | | | At | Signature | + + + + + + | Glucose, | 171 (H)Comment: Testing | 65 - 99 mg/dL | [facility] | | | POC | performed at [facility] [place];[address] | | | | [address];[place], [place] | | | | | | [address] | | | | + + + + + + + + | Specimen | + + | | + + + + + + + | Performing | Address | City/State/Zipcode | Phone Number | | Organization | | | | + + + + + | [facility] LABORATORY | [address] | [place] [address] | [phone] | + + + + + POC [...] | | | POC | performed at [facility];[address] | | LABORATORY | | | | [address];[place], [place] | | | | | | [address] | | | | + + + + + + + + | Specimen | + + | | + + + + + + + | Performing | Address | City/State/Zipcode | Phone Number | | Organization | | | | + + + + + | [facility] | [address] | [place] [address] | [phone] | + + + + + POC Glucose (04/15/2019 1:19 PM PST) + + + + + + | Component | Value | Ref Range | Performed | Pathologist | | | | | At | Signature | + + + + + + | Glucose, | 227 (H)Comment: Testing | 65 - 99 mg/dL | [facility] | | | POC | performed at [facility];[address] | | LABORATORY | | | | [address];[place], [place] | | | | | | [address] | | | | + + + + + + + + | Specimen | + + | | + + + + + + + | Performing | Address | City/State/Zipcode | Phone Number | | Organization | | | | + + + + + | [facility] | [address] | [place] [address] | [phone] | + + + + + Type [...] + + + | BB BAND | [id number] | | [facility] | | | | | | LABORATORY | | + + + + + + | UNIT # | [id number] | | [facility] | | | | [...] + + + | UNIT # | [id number] | | [facility] | | | | [...] + + + | UNIT # | [id number] | | [facility] | | | | [...] | | | RESULT | performed at [facility];888 | | LABORATORY | | | | [address];[place] | | | | | | [address] | | | | + + + + + + + + | Specimen | + + | Blood | + + + + + + + | Performing | Address | City/State/Zipcode | Phone Number | | Organization | | | | + + + + + | [facility] | [address] | [place] [address] | [phone] | + + + + + Red [...] | ORDER RECEIVED IN BLOOD | | [facility] | | | COMMENT | BANK. | | LABORATORY | | + + + + + + | BLOOD BANK | Testing performed at | | [facility] | | | COMMENT | [facility];[address] | | LABORATORY | | | | [address];[place] [address] | | | | + + + + + + + + | Specimen | + + | | + + + + + + + | Performing | Address | City/State/Zipcode | Phone Number | | Organization | | | | + + + + + | [facility] | [address] | [place] [address] | [phone] | + + + + + POC [...] | | | POC | performed at [facility];[address] | | LABORATORY | | | | [address];[place], [place] | | | | | | [address] | | | | + + + + + + + + | Specimen | + + | | + + + + + + + | Performing | Address | City/State/Zipcode | Phone Number | | Organization | | | | + + + + + | [facility] | [address] | [place] [address] | [phone] | + + + + + Vancomycin, [...] | | | | | performed at [facility];888 | | | | | | [address];[place] | | | | | | [address] | | | | + + + + + + + + | Specimen | + + | Blood | + + + + + + + | Performing | Address | City/State/Zipcode | Phone Number | | Organization | | | | + + + + + | [facility] | [address] | [place] [address] | [phone] | + + + + + CBC [...] | | | Estimate | performed at [facility] | | LABORATORY | | | | [address];[place] | | | | | | [address] | | | | + + + + + + + + | Specimen | + + | Blood | + + + + + + + | Performing | Address | City/State/Zipcode | Phone Number | | Organization | | | | + + + + + | [facility] | [address] | [place] [address] | [phone] | + + + + + Basic [...] 8.1 (L) | 8.5 - 10.5 | [facility] | | | | | mg/dL | LABORATORY | | + + + + + + | Estimated | >60Comment: GFR <60: | >60 | [facility] | | | GFR | CHRONIC [...] | | | | | | MDRD IDAZ traceable | | | | | | equation.Testing | | | | | | performed at [facility];88 | | | | | | [facility];[place], [place] | | | | | | [address] | | | | + + + + + + + + | Specimen | + + | Blood | + + + + + + + | Performing | Address | City/State/Zipcode | Phone Number | | Organization | | | | + + + + + | [facility] | [address] | [place] [address] | [phone] | + + + + + POC [...] | | | POC | performed at [facility];[address] | | LABORATORY | | | | [address];[place] | | | | | | [address] | | | | + + + + + + + + | Specimen | + + | | + + + + + + + | Performing | Address | City/State/Zipcode | Phone Number | | Organization | | | | + + + + + | [facility] | [address] [facility] | [place] [address] | [phone] | + + + + + POC [...] | | | POC | performed at [facility];[address] | | LABORATORY | | | | [address];[place], [place] | | | | | | [address] | | | | + + + + + + + + | Specimen | + + | | + + + + + + + | Performing | Address | City/State/Zipcode | Phone Number | | Organization | | | | + + + + + | [facility] | [address] | [place] [address] | [phone] | + + + + + POC [...] | | | POC | performed at [facility];[address] | | LABORATORY | | | | [address];[place] | | | | | | [address] | | | | + + + + + + + + | Specimen | + + | | + + + + + + + | Performing | Address | City/State/Zipcode | Phone Number | | Organization | | | | + + + + + | [facility] | [address] | [place] [address] | [phone] | + + + + + ECHO [...] | | | POC | performed at [facility];[address] | | LABORATORY | | | | [address];[place] | | | | | | [address] | | | | + + + + + + + + | Specimen | + + | | + + + + + + + | Performing | Address | City/State/Zipcode | Phone Number | | Organization | | | | + + + + + | [facility] | [address] | [place] [address] | [phone] | + + + + + B Type Natriuretic Peptide (04/14/2019 6:29 AM PST) + + + + + + | Component | Value | Ref Range | Performed | Pathologist | | | | | At | Signature | + + + + + + | BNP | 587.58 (H)Comment: | 0 - 100 pg/mL | [facility] | | | | Testing performed at | | LABORATORY | | | | [facility];[address] | | | | | | [address];[place] [address] | | | | + + + + + + + + | Specimen | + + | | + + + + + + + | Performing | Address | City/State/Zipcode | Phone Number | | Organization | | | | + + + + + | [facility] | [address] | [place] [address] | [phone] | + + + + + CBC [...] | | | Estimate | performed at [facility] | | LABORATORY | | | | [address];[place], [place] | | | | | | [address] | | | | + + + + + + + + | Specimen | + + | | + + + + + + + | Performing | Address | City/State/Zipcode | Phone Number | | Organization | | | | + + + + + | [facility] | [address] | [place] [address] | [phone] | + + + + + Troponin [...] at | | | | | | [facility];[address] | | | | | | [place] [address] | | | | + + + + + + + + | Specimen | + + | Blood | + + + + + + + | Performing | Address | City/State/Zipcode | Phone Number | | Organization | | | | + + + + + | [facility] | [address] | [place] [address] | [phone] | + + + + + Basic [...] | | | | | | MDRD [facility] traceable | | | | | | equation.Testing | | | | | | performed at [facility];[address] | | | | | | [facility];[place], [place] | | | | | | [address] | | | | + + + + + + + + | Specimen | + + | Blood | + + + + + + + | Performing | Address | City/State/Zipcode | Phone Number | | Organization | | | | + + + + + | [facility] | [address] [facility] | [place] [address] | [phone] | + + + + + Vancomycin Level (04/14/2019 4:53 AM PST) + + + + + + | Component | Value | Ref Range | Performed | Pathologist | | | | | At | Signature | + + + + + + | Vancomycin | 20.6Comment: Testing | ug/mL | [facility] | | | Random, | performed at [facility];[address] | | LABORATORY | | | Serum | [facility];[place], [place] | | | | | | [address] | | | | + + + + + + + + | Specimen | + + | Blood | + + + + + + + | Performing | Address | City/State/Zipcode | Phone Number | | Organization | | | | + + + + + | [facility] | [address] | [place] [address] | [phone] | + + + + + POC [...] | | | POC | performed at [facility];[address] | | LABORATORY | | | | [address];[place] | | | | | | [address] | | | | + + + + + + + + | Specimen | + + | | + + + + + + + | Performing | Address | City/State/Zipcode | Phone Number | | Organization | | | | + + + + + | [facility] | [address] | [place] [address] | [phone] | + + + + + Troponin I (04/14/2019 1:19 AM PST) + + + + + + | Component | Value | Ref Range | Performed | Pathologist | | | | | At | Signature | + + + + + + | Troponin I | 0.015Comment: 0.04 | 0.00 - 0.04 | [facility] | | | | ng/mL or [...] at | | | | | | [facility];[address] [facility] | | | | | | Blvd;[place] [address] | | | | + + + + + + + + | Specimen | + + | Blood | + + + + + + + | Performing | Address | City/State/Zipcode | Phone Number | | Organization | | | | + + + + + | [facility] | [address] | [place] [address] | [phone] | + + + + + ECG [...] | | | POC | performed at [facility];[address] | | LABORATORY | | | | [address];[place] | | | | | | [address] | | | | + + + + + + + + | Specimen | + + | | + + + + + + + | Performing | Address | City/State/Zipcode | Phone Number | | Organization | | | | + + + + + | [facility] | [address] | [place] [address] | [phone] | + + + + + POC Glucose (04/13/2019 4:19 PM PST) + + + + + + | Component | Value | Ref Range | Performed | Pathologist | | | | | At | Signature | + + + + + + | Glucose, | 109 (H)Comment: Testing | 65 - 99 mg/dL | [facility] | | | POC | performed at [facility];[address] | | LABORATORY | | | | [address];[place] | | | | | | [address] | | | | + + + + + + + + | Specimen | + + | | + + + + + + + | Performing | Address | City/State/Zipcode | Phone Number | | Organization | | | | + + + + + | [facility] | [address] | [place] [address] | [phone] | + + + + + XR [...] + + | Performing | Address | City[facility]State[facility] | Phone Number | | [...] catheterization with right leg runoff4. Right SFA GLASS FINISHER | | | crossing and atherectomy using Bard 14 S crossing catheter SURGEON: | | | Simba Cheng MD DRUG ROOM OPERATOR: None ANESTHESIA: Moderate sedation and local [...] | | identified and brought to the Director Intelligence Analysis Programs. The patient was placed supine | | [...] sized to a 4 | | | [place] sheath. A Omni flush catheter was then [...] inserted over the catheter and the 4 [place] sheath was | | | removed. A 7 [place] destination sheath was then inserted over the [...] | | | POC | performed at [facility];[address] | | LABORATORY | | | | [address];[place] | | | | | | [address] | | | | + + + + + + + + | Specimen | + + | | + + + + + + + | Performing | Address | City/State/Zipcode | Phone Number | | Organization | | | | + + + + + | [facility] | [address] | [place] [address] | [phone] | + + + + + POC Glucose (04/13/2019 7:59 AM PST) + + + + + + | Component | Value | Ref Range | Performed | Pathologist | | | | | At | Signature | + + + + + + | Glucose, | 124 (H)Comment: Testing | 65 - 99 mg/dL | [facility] | | | POC | performed at [facility];[address] | | LABORATORY | | | | [address];[place] | | | | | | [address] | | | | + + + + + + + + | Specimen | + + | | + + + + + + + | Performing | Address | City/State/Zipcode | Phone Number | | Organization | | | | + + + + + | [facility] | [address] | [place] [address] | [phone] | + + + + + Basic [...] | | | | | performed at [facility], [address] | | | | | | [address], | | | | | | [place] [address] | | | | + + + + + + + + | Specimen | + + | Blood | + + + + + + + | Performing | Address | City/State/Zipcode | Phone Number | | Organization | | | | + + + + + | [facility] | [address] | [place] [address] | [phone] | + + + + + CBC [...] | | | | | performed at [facility], [facility] [address] | | | | | | [facility], | | | | | | [place] [address] | | | | | |MICRO | | | | | |NORMAL PLT MORPH | | | | | |Testing performed at [facility], [facility] [place] [address] | | | | | | | | | | + + +---- + + + + + | Specimen | + + | Blood | + + + + + + + | Performing | Address | City/State/Zipcode | Phone Number | | Organization | | | | + + + + + | [facility] | [address] | [place] [address] | [phone] | + + + + + POC Glucose (04/13/2019 3:30 AM PST) + + + + + + | Component | Value | Ref Range | Performed | Pathologist | | | | | At | Signature | + + + + + + | Glucose, | 147 (H)Comment: Testing | 65 - 99 mg/dL | [facility] | | | POC | performed at [facility];[address] | | LABORATORY | | | | [address];[place], [place] | | | | | | [address] | | | | + + + + + + + + | Specimen | + + | | + + + + + + + | Performing | Address | City/State/Zipcode | Phone Number | | Organization | | | | + + + + + | [facility] | [address] | [place] [address] | [phone] | + + + + + POC [...] | | | POC | performed at [facility];[address] | | LABORATORY | | | | [address];[place], [place] | | | | | | [address] | | | | + + + + + + + + | Specimen | + + | | + + + + + + + | Performing | Address | City/State/Zipcode | Phone Number | | Organization | | | | + + + + + | [facility] | [address] | [place] [address] | [phone] | + + + + + POC Glucose (04/12/2019 4:28 PM PST) + + + + + + | Component | Value | Ref Range | Performed | Pathologist | | | | | At | Signature | + + + + + + | Glucose, | 211 (H)Comment: Testing | 65 - 99 mg/dL | [facility] | | | POC | performed at [facility];[address] | | LABORATORY | | | | [address];[place] | | | | | | [address] | | | | + + + + + + + + | Specimen | + + | | + + + + + + + | Performing | Address | City/State/Zipcode | Phone Number | | Organization | | | | + + + + + | [facility] | [address] | [place] [address] | [phone] | + + + + + POC Glucose (04/12/2019 11:53 AM PST) + + + + + + | Component | Value | Ref Range | Performed | Pathologist | | | | | At | Signature | + + + + + + | Glucose, | 162 (H)Comment: Testing | 65 - 99 mg/dL | [facility] | | | POC | performed at [facility];[address] | | LABORATORY | | | | [address];[place], [place] | | | | | | [address] | | | | + + + + + + + + | Specimen | + + | | + + + + + + + | Performing | Address | City/State/Zipcode | Phone Number | | Organization | | | | + + + + + | [facility] | [address] | [place] [address] | [phone] | + + + + + POC [...] | | | POC | performed at [facility];[address] | | LABORATORY | | | | [address];[place], [place] | | | | | | [address] | | | | + + + + + + + + | Specimen | + + | | + + + + + + + | Performing | Address | City/State/Zipcode | Phone Number | | Organization | | | | + + + + + | [facility] | [address] | [place] [address] | [phone] | + + + + + Basic [...] | >60Comment: GFR <60: | >60 | [facility] | | | GFR | CHRONIC [...] | | | | | | MDRD IDAZ traceable | | | | | | equation.Testing | | | | | | performed at [facility], [address] | | | | | | [facility], | | | | | | [place] [address] | | | | + + + + + + + + | Specimen | + + | Blood | + + + + + + + | Performing | Address | City/State/Zipcode | Phone Number | | Organization | | | | + + + + + | [facility] | [address] | [place] [address] | [phone] | + + + + + CBC [...] | | | | | performed at [facility], [facility] [address] | | | | | | [facility], | | | | | | [place] [address] | | | | | |MICRO | | | | | |NORMAL PLT MORPH | | | | | |Testing performed at [facility], [facility] [place] [address] | | | | | | | | | | + + +---- + + + + + | Specimen | + + | Blood | + + + + + + + | Performing | Address | City/State/Zipcode | Phone Number | | Organization | | | | + + + + + | [facility] | [address] | [place] [address] | [phone] | + + + + + POC Glucose (04/11/2019 9:20 PM PST) + + + + + + | Component | Value | Ref Range | Performed | Pathologist | | | | | At | Signature | + + + + + + | Glucose, | 199 (H)Comment: Testing | 65 - 99 mg/dL | [facility] | | | POC | performed at [facility];[address] | | LABORATORY | | | | [address];[place] | | | | | | [address] | | | | + + + + + + + + | Specimen | + + | | + + + + + + + | Performing | Address | City/State/Zipcode | Phone Number | | Organization | | | | + + + + + | [facility] | [address] | [place] [address] | [phone] | + + + + + POC [...] | | | POC | performed at [facility];[address] | | LABORATORY | | | | [address];[place] | | | | | | [address] | | | | + + + + + + + + | Specimen | + + | | + + + + + + + | Performing | Address | City/State/Zipcode | Phone Number | | Organization | | | | + + + + + | [facility] | [address] | [place] [address] | [phone] | + + + + + POC [...] | | | POC | performed at [facility];[address] | | LABORATORY | | | | [address];[place] | | | | | | [address] | | | | + + + + + + + + | Specimen | + + | | + + + + + + + | Performing | Address | City/State/Zipcode | Phone Number | | Organization | | | | + + + + + | [facility] | [address] | [place] [address] | [phone] | + + + + + IR [...] x 150 mm | | | angioplasty [id number]. Left SFA stenting using 7 x 120 mm | | | self-expanding stent SURGEON: Simba Cheng MD DRUG ROOM OPERATOR: None ANESTHESIA: | | | Moderate [...] | | identified and brought to the Director Intelligence Analysis Programs. The patient was placed supine | | [...] sized to a 4 | | | [place] sheath. A Omni flush catheter was then [...] inserted over the catheter and the 4 [place] sheath was | | | removed. A 7 [place] destination sheath was then inserted over the [...] using a | | | Glidewire and [place] catheter. A 0.009 wire was then passed [...] crossed using a | | |Glidewire and [place] catheter. A 0.009 wire was then passed [...] | | | POC | performed at [facility];[address] | | LABORATORY | | | | [address];[place], [place] | | | | | | [address] | | | | + + + + + + + + | Specimen | + + | | + + + + + + + | Performing | Address | City/State/Zipcode | Phone Number | | Organization | | | | + + + + + | [facility] | [address] | [place] [address] | [phone] | + + + + + B Type Natriuretic Peptide (04/11/2019 5:48 AM PST) + + + + + + | Component | Value | Ref Range | Performed | Pathologist | | | | | At | Signature | + + + + + + | BNP | 220.45 (H)Comment: | 0 - 100 pg/mL | [facility] | | | | Testing performed at | | LABORATORY | | | | [facility];[address] | | | | [address];[place] [address] | | | | + + + + + + + + | Specimen | + + | Blood | + + + + + + + | Performing | Address | City/State/Zipcode | Phone Number | | Organization | | | | + + + + + | [facility] | [address] | [place] [address] | [phone] | + + + + + Basic [...] | | | | | performed at [facility], [address] | | | | | | [address], | | | | | | [place] [address] | | | | + + + + + + + + | Specimen | + + | Blood | + + + + + + + | Performing | Address | City/State/Zipcode | Phone Number | | Organization | | | | + + + + + | [facility] | [address] | [place] [address] | [phone] | + + + + + CBC [...] | | | | | | at [facility], [address] | | | | | | [facility], | | | | | | [place] [address] | | | | | |Testing performed at [facility], [address] [facility], [place] [address] | | | | | | | | | | + + +---- + + + + + | Specimen | + + | Blood | + + + + + + + | Performing | Address | City/State/Zipcode | Phone Number | | Organization | | | | + + + + + | [facility] | [address] | [place] [address] | [phone] | + + + + + POC Glucose (04/10/2019 9:22 PM PST) + + + + + + | Component | Value | Ref Range | Performed | Pathologist | | | | | At | Signature | + + + + + + | Glucose, | 127 (H)Comment: Testing | 65 - 99 mg/dL | [facility] | | | POC | performed at [facility];[address] | | LABORATORY | | | | [address];[place] | | | | | | [address] | | | | + + + + + + + + | Specimen | + + | | + + + + + + + | Performing | Address | City/State/Zipcode | Phone Number | | Organization | | | | + + + + + | [facility] | [address] | [place] [address] | [phone] | + + + + + POC Glucose (04/10/2019 2:33 PM PST) + + + + + + | Component | Value | Ref Range | Performed | Pathologist | | | | | At | Signature | + + + + + + | Glucose, | 176 (H)Comment: Testing | 65 - 99 mg/dL | [facility] | | | POC | performed at [facility];[address] | | LABORATORY | | | | [address];[place] | | | | | | [address] | | | | + + + + + + + + | Specimen | + + | | + + + + + + + | Performing | Address | City/State/Zipcode | Phone Number | | Organization | | | | + + + + + | [facility] | [address] | [place] [address] | [phone] | + + + + + [place] [...] | | | POC | performed at [facility] [place] | | LABORATORY | | | | Kiara Jaramillo;[place] | | | | | | [address] | | | | + + + + + + + + | Specimen | + + | | + + + + + + + | Performing | Address | City/State/Zipcode | Phone Number | | Organization | | | | + + + + + | [facility] | [address] | [place] [address] | [phone] | + + + + + CBC [...] | LABORATORY | | | | Loi Jraamillo, | | | | | | [place] [address] | | | | + + + + + + + + | Specimen | + + | Blood | + + + + + + + | Performing | Address | City/State/Zipcode | Phone Number | | Organization | | | | + + + + + | [facility] | [address] | [place] [address] | [phone] | + + + + + POC Glucose (04/09/2019 9:57 PM PST) + + + + + + | Component | Value | Ref Range | Performed | Pathologist | | | | | At | Signature | + + + + + + | Glucose, | 151 (H)Comment: Testing | 65 - 99 mg/dL | [facility] | | | POC | performed at [facility] [place] | | LABORATORY | | | | Kiara Jaramillo;[place] | | | | | | [address] | | | | + + + + + + + + | Specimen | + + | | + + + + + + + | Performing | Address | City/State/Zipcode | Phone Number | | Organization | | | | + + + + + | [facility] | [address] | [place] [address] | [phone] | + + + + + POC [...] | | | POC | performed at [facility] [place];[address] | | LABORATORY | | | | [address], [place] | | | | | | [address] | | | | + + + + + + + + | Specimen | + + | | + + + + + + + | Performing | Address | City/State/Zipcode | Phone Number | | Organization | | | | + + + + + | [facility] | [address] [address] | [place] [address] | [phone] | + + + + + POC [...] | | | POC | performed at [facility];[address] | | LABORATORY | | | | [address];[place] | | | | | | [address] | | | | + + + + + + + + | Specimen | + + | | + + + + + + + | Performing | Address | City/State/Zipcode | Phone Number | | Organization | | | | + + + + + | [facility] | [address] | [place] [address] | [phone] | + + + + + XR Chest AP Portable (04/09/2019 9:02 AM PST) + + | Specimen | + + | | + + + + + | Impressions | Performed At | + + + | Hypoventilatory exam, it would be difficult to exclude an element of | [facility] | | congestive failure. Signed by: Madison Solis, [facility] | | | Sign Date/Time: 04/09/2019 [...] | | | Urine | performed at [facility], [address] | | LABORATORY | | | | [address], | | | | | | [place] [address] | | | | + + + + + + + + | Specimen | + + | | + + + + + + + | Performing | Address | City/State/Zipcode | Phone Number | | Organization | | | | + + + + + | [facility] | [address] | [place] [address] | [phone] | + + + + + Urinalysis, [...] - 1.030 | [facility] | | | [place], | | | LABORATORY | | | [...] | + + + + + | [facility] | [address] | [place] [address] | [phone] | + + + + + Sedimentation Rate (04/09/2019 6:16 AM PST) + + + + + + | Component | Value | Ref Range | Performed | Pathologist | | | | | At | Signature | + + + + + + | ESR | 91 (H)Comment: Testing | 0 - 20 mm/Hr | [facility] | | | | performed at [facility], [address] | | LABORATORY | | | | [address], | | | | | | [place] [address] | | | | + + + + + + + + | Specimen | + + | Blood | + + + + + + + | Performing | Address | City/State/Zipcode | Phone Number | | Organization | | | | + + + + + | [facility] | [address] | [place] [address] | [phone] | + + + + + CBC [...] [facility] | | | | performed at [facility], [address] | | LABORATORY | | | | [address], | | | | | | [place] [address] | | | | + + + + + + + + | Specimen | + + | Blood | + + + + + + + | Performing | Address | City/State/Zipcode | Phone Number | | Organization | | | | + + + + + | [facility] | [address] | [place] [address] | [phone] | + + + + + Comprehensive [...] | | | | | performed at [facility], [address] | | | | | | [facility], | | | | | | [place] [address] | | | | + + + + + + + + | Specimen | + + | Blood | + + + + + + + | Performing | Address | City/State/Zipcode | Phone Number | | Organization | | | | + + + + + | [facility] | [address] | [place] [address] | [phone] | + + + + + POC Glucose (04/08/2019 10:09 PM PST) + + + + + + | Component | Value | Ref Range | Performed | Pathologist | | | | | At | Signature | + + + + + + | Glucose, | 168 (H)Comment: Testing | 65 - 99 mg/dL | [facility] | | | POC | performed at [facility];[address] | | LABORATORY | | | | [address];[place] | | | | | | [address] | | | | + + + + + + + + | Specimen | + + | | + + + + + + + | Performing | Address | City/State/Zipcode | Phone Number | | Organization | | | | + + + + + | [facility] | [address] | [place] [address] | [phone] | + + + + + Fecal Hemoglobin (04/08/2019 7:27 PM PST) + + + + + + | Component | Value | Ref Range | Performed | Pathologist | | | | | At | Signature | + + + + + + | FECAL | NEGATIVEComment: Testing | NEG | [facility] | | | OCCULT BLD | performed at [facility];[address] | | LABORATORY | | | | [address];[place] | | | | | | [address] | | | | + + + + + + + + | Specimen | + + | Stool - Stool | | specimen (specimen) | + + + + + + + | Performing | Address | City/State/Zipcode | Phone Number | | Organization | | | | + + + + + | [facility] | [address] | [place] [address] | [phone] | + + + + + POC Glucose (04/08/2019 6:34 PM PST) + + + + + + | Component | Value | Ref Range | Performed | Pathologist | | | | | At | Signature | + + + + + + | Glucose, | 179 (H)Comment: Testing | 65 - 99 mg/dL | [facility] | | | POC | performed at [facility];[address] | | LABORATORY | | | | [address];[place], [place] | | | | | | [address] | | | | + + + + + + + + | Specimen | + + | | + + + + + + + | Performing | Address | City/State/Zipcode | Phone Number | | Organization | | | | + + + + + | [facility] | [address] | [place] [address] | [phone] | + + + + + XR [...] Testing | 65 - 99 mg/dL | [facility] | | | POC | performed at [facility];[address] | | LABORATORY | | | | [address];[place], [place] | | | | | | [address] | | | | + + + + + + + + | Specimen | + + | | + + + + + + + | Performing | Address | City/State/Zipcode | Phone Number | | Organization | | | | + + + + + | [facility] | [address] | [place] [address] | [phone] | + + + + + XR [...] | | | POC | performed at [facility];[address] | | LABORATORY | | | | [address];[place], [place] | | | | | | [address] | | | | + + + + + + + + | Specimen | + + | | + + + + + + + | Performing | Address | City/State/Zipcode | Phone Number | | Organization | | | | + + + + + | [facility] | [address] | [place] [address] | [phone] | + + + + + B Type Natriuretic Peptide (04/08/2019 5:45 AM PST) + + + + + + | Component | Value | Ref Range | Performed | Pathologist | | | | | At | Signature | + + + + + + | BNP | 580.26 (H)Comment: | 0 - 100 pg/mL | [facility] | | | | Testing performed at | | LABORATORY | | | | [facility];[address] | | | [address];[place] [address] | | | | + + + + + + + + | Specimen | + + | Blood | + + + + + + + | Performing | Address | City/State/Zipcode | Phone Number | | Organization | | | | + + + + + | [facility] | [address] | [place] [address] | [phone] | + + + + + CBC [...] [facility] | | | | performed at [facility], [address] | | LABORATORY | | | | [address], | | | | | | [place] [address] | | | | + + + + + + + + | Specimen | + + | Blood | + + + + + + + | Performing | Address | City/State/Zipcode | Phone Number | | Organization | | | | + + + + + | [facility] | [address] | [place] [address] | [phone] | + + + + + Comprehensive [...] | | | | | performed at [facility], [address] | | | | | | [address], | | | | | | [place] [address] | | | | + + + + + + + + | Specimen | + + | Blood | + + + + + + + | Performing | Address | City/State/Zipcode | Phone Number | | Organization | | | | + + + + + | [facility] | [address] [facility] | [place] [address] | [phone] | + + + + + POC [...] | | | POC | performed at [facility];[address] | | LABORATORY | | | | [address];[place], [place] | | | | | | [address] | | | | + + + + + + + + | Specimen | + + | | + + + + + + + | Performing | Address | City/State/Zipcode | Phone Number | | Organization | | | | + + + + + | [facility] | [address] | [place] [address] | [phone] | + + + + + POC [...] | | | POC | performed at [facility];[address] | | LABORATORY | | | | [address];[place] | | | | | | [address] | | | | + + + + + + + + | Specimen | + + | | + + + + + + + | Performing | Address | City/State/Zipcode | Phone Number | | Organization | | | | + + + + + | [facility] | [address] | [place] [address] | [phone] | + + + + + POC Glucose (04/07/2019 12:40 PM PST) + + + + + + | Component | Value | Ref Range | Performed | Pathologist | | | | | At | Signature | + + + + + + | Glucose, | 252 (H)Comment: Testing | 65 - 99 mg/dL | [facility] | | | POC | performed at [facility];[address] | | LABORATORY | | | | [address];[place], [place] | | | | | | [address] | | | | + + + + + + + + | Specimen | + + | | + + + + + + + | Performing | Address | City/State/Zipcode | Phone Number | | Organization | | | | + + + + + | [facility] | [address] | [place] [address] | [phone] | + + + + + XR [...] Testing | 65 - 99 mg/dL | [facility] | | | POC | performed at [facility];[address] | | LABORATORY | | | | [address];[place] | | | | | | [address] | | | | + + + + + + + + | Specimen | + + | | + + + + + + + | Performing | Address | City/State/Zipcode | Phone Number | | Organization | | | | + + + + + | [facility] | [address] | [place] [address] | [phone] | + + + + + Magnesium (04/07/2019 5:02 AM PST) + + + + + + | Component | Value | Ref Range | Performed | Pathologist | | | | | At | Signature | + + + + + + | Magnesium | 2.1Comment: Testing | 1.7 - 2.4 mg/dL | [facility] | | | | performed at [facility], [address] | | LABORATORY | | | | [address], | | | | | | [place] [address] | | | | + + + + + + + + | Specimen | + + | Blood | + + + + + + + | Performing | Address | City/State/Zipcode | Phone Number | | Organization | | | | + + + + + | [facility] | [address] | [place] [address] | [phone] | + + + + + CBC [...] IDA | | | | performed at [facility];[address] | | LABORATORY | | | | [address];[place] | | | | | | [address] | | | | + + + + + + + + | Specimen | + + | Blood | + + + + + + + | Performing | Address | City/State/Zipcode | Phone Number | | Organization | | | | + + + + + | [facility] | [address] | [place] [address] | [phone] | + + + + + Comprehensive [...] W | | | | | | [facility], | | | | | | [place] [address] | | | | + + + + + + + + | Specimen | + + | Blood | + + + + + + + | Performing | Address | City/State/Zipcode | Phone Number | | Organization | | | | + + + + + | [facility] | [address] | [place] [address] | [phone] | + + + + + Iron, Total (04/07/2019 5:02 AM PST) + + + + + + | Component | Value | Ref Range | Performed | Pathologist | | | | | At | Signature | + + + + + + | Iron | 23 (L)Comment: Testing | 45 - 190 ug/dL | [facility] | | | | performed at [facility], [address] | | LABORATORY | | | | [address], | | | | | | [place] [address] | | | | + + + + + + + + | Specimen | + + | Blood | + + + + + + + | Performing | Address | City/State/Zipcode | Phone Number | | Organization | | | | + + + + + | [facility] | [address] | [place] [address] | [phone] | + + + + + POC [...] | | | POC | performed at [facility];[address] | | LABORATORY | | | | [address];[place], [place] | | | | | | [address] | | | | + + + + + + + + | Specimen | + + | | + + + + + + + | Performing | Address | City/State/Zipcode | Phone Number | | Organization | | | | + + + + + | [facility] | [address] | [place] [address] | [phone] | + + + + + POC Glucose (04/06/2019 4:29 PM PST) + + + + + + | Component | Value | Ref Range | Performed | Pathologist | | | | | At | Signature | + + + + + + | Glucose, | 173 (H)Comment: Testing | 65 - 99 mg/dL | [facility] | | | POC | performed at [facility];[address] | | LABORATORY | | | | [address];[place] | | | | | | [address] | | | | + + + + + + + + | Specimen | + + | | + + + + + + + | Performing | Address | City/State/Zipcode | Phone Number | | Organization | | | | + + + + + | [facility] | [address] | [place] [address] | [phone] | + + + + + Culture, [...] | | LABORATORY | | | | Blvd;[place] [address] | | | | + + + [...] RESULT | Testing performed at | | [facility] | | | | [facility], [address] | | LABORATORY | | | | [place], [place] | | | | | | [address]Kfsxqgx: Testing | | | | | | performed at [facility], [address] | | | | | | [address] [place], [place] | | | | | | [address] | | | | + + + + + + + + | Specimen | + + | Body Fluid - Entire | | heel (body | | structure) | + + + + + + + | Performing | Address | City/State/Zipcode | Phone Number | | Organization | | | | + + + + + | [facility] | [address] | [place] [address] | [phone] | + + + + + Culture, [...] LABORATORY | | | | Blvd;[place] [address] | | | | + + + [...] Comment: Testing | | | performed at [facility], | | | [address], | | | [place] [address] | +---+ + + + + + + | Performing | Address | City/State/Zipcode | Phone Number | | Organization | | | | + + + + + | [facility] | [address] | [place] [address] | [phone] | + + + + + Ferritin (04/06/2019 2:30 PM PST) + + + + + + | Component | Value | Ref Range | Performed | Pathologist | | | | | At | Signature | + + + + + + | Ferritin | 62Comment: Testing | 11 - 450 ng/mL | [facility] | | | | performed at [facility], [address] | | LABORATORY | | | | [address], | | | | | | [place] [address] | | | | + + + + + + + + | Specimen | + + | Blood | + + + + + + + | Performing | Address | City/State/Zipcode | Phone Number | | Organization | | | | + + + + + | [facility] | [address] | [place] [address] | [phone] | + + + + + Vitamin [...] | 12.3Comment: Testing | >5.4 ng/mL | [facility] | | | | performed at [facility], [address] | | LABORATORY | | | | [address], | | | | | | [place] [address] | | | | + + + + + + + + | Specimen | + + | Blood | + + + + + + + | Performing | Address | City/State/Zipcode | Phone Number | | Organization | | | | + + + + + | [facility] | [address] | [place] [address] | [phone] | + + + + + Troponin I (04/06/2019 2:30 PM PST) + + + + + + | Component | Value | Ref Range | Performed | Pathologist | | | | | At | Signature | + + + + + + | Troponin I | 0.161 (H)Comment: 0.04 | 0.00 - 0.04 | [facility] | | | | ng/mL or [...] at | | | | | | [facility];[address] | | | | | | [facility];[place] [address] | | | | + + + + + + + + | Specimen | + + | Blood | + + + + + + + | Performing | Address | City/State/Zipcode | Phone Number | | Organization | | | | + + + + + | [facility] | [address] | [place] [address] | [phone] | + + + + + POC Glucose (04/06/2019 11:28 AM PST) + + + + + + | Component | Value | Ref Range | Performed | Pathologist | | | | | At | Signature | + + + + + + | Glucose, | 175 (H)Comment: Testing | 65 - 99 mg/dL | [facility] | | | POC | performed at [facility];[address] | | LABORATORY | | | | [address];[place], [place] | | | | | | [address] | | | | + + + + + + + + | Specimen | + + | | + + + + + + + | Performing | Address | City/State/Zipcode | Phone Number | | Organization | | | | + + + + + | [facility] | [address] | [place] [address] | [phone] | + + + + + VAS [...] | | | POC | performed at [facility];[address] | | LABORATORY | | | | [address];[place], [place] | | | | | | [address] | | | | + + + + + + + + | Specimen | + + | | + + + + + + + | Performing | Address | City/State/Zipcode | Phone Number | | Organization | | | | + + + + + | [facility] | [address] | [place] [address] | [phone] | + + + + + Troponin [...] at | | | | | | [facility];[address] | | | | | | [facility];[place] [address] | | | | + + + + + + + + | Specimen | + + | Blood | + + + + + + + | Performing | Address | City/State/Zipcode | Phone Number | | Organization | | | | + + + + + | [facility] | [address] | [place] [address] | [phone] | + + + + + XR [...] LABORATORY | | | | [address];[place] [address] | | | | + + + [...] [place] | | | | | | [address]Tvrkuyr: Testing | | | | | | performed at [facility], [address] | | | | | | [address], [place], [place] | | | | | | [address] | | | | + + + + + + + + | Specimen | + + | Blood - Peripheral | | blood specimen | | (specimen) | + + + + + + + | Performing | Address | City/State/Zipcode | Phone Number | | Organization | | | | + + + + + | [facility] | [address] | [place] [address] | [phone] | + + + + + Culture, [...] LABORATORY | | | | Blvd;[place] [address] | | | | + + + + + + | RESULT | NO GROWTH 6 DAYS | | [facility] | | | | | | LABORATORY | | + + + + + + | RESULT | Testing performed at | | [facility] | | | | [facility], [address] | | LABORATORY | | | | [place], [place] | | | | | | [id number]: Testing | | | | | | performed at [facility], [address] | | | | | | [address], [place], [place] | | | | | | [address] | | | | + + + + + + + + | Specimen | + + | Blood - Peripheral | | blood specimen | | (specimen) | + + + + + + + | Performing | Address | City/State/Zipcode | Phone Number | | Organization | | | | + + + + + | [facility] | [address] | [place] [address] | [phone] | + + + + + B [...] | | LABORATORY | | | | [facility];[address] [facility] | | | | | | Blvd;[place] [address] | | | | + + + + + + + + | Specimen | + + | | + + + + + + + | Performing | Address | City/State/Zipcode | Phone Number | | Organization | | | | + + + + + | [facility] | [address] | [place] [address] | [phone] | + + + + + Lipid [...] | | | Calculated | performed at [facility], [address] | | LABORATORY | | | | [address], | | | | | | [place] [address] | | | | + + + + + + + + | Specimen | + + | Blood | + + + + + + + | Performing | Address | City/State/Zipcode | Phone Number | | Organization | | | | + + + + + | [facility] | [address] | [place] [address] | [phone] | + + + + + Hemoglobin A1C (04/06/2019 2:48 AM PST) + + + + + + | Component | Value | Ref Range | Performed | Pathologist | | | | | At | Signature | + + + + + + | Hemoglobin | 7.8 (H)Comment: HbA1c | 4.0 - 6.0 % | [facility] | | | A1c | method [...] | 177 (H)Comment: | <154 mg/dL | [facility] | | | Average | Estimated Average | | LABORATORY | | | Glucose | Glucose calculated from | | | | | | hemoglobin A1c by use of | | | | | | the ADArecommended | | | | | | formula.Testing | | | | | | performed at [facility], [address] | | | | | | [facility], | | | | | | [place] [address] | | | | + + + + + + + + | Specimen | + + | Blood | + + + + + + + | Performing | Address | City/State/Zipcode | Phone Number | | Organization | | | | + + + + + | [facility] | [address] | [place] [address] | [phone] | + + + + + Magnesium (04/06/2019 2:48 AM PST) + + + + + + | Component | Value | Ref Range | Performed | Pathologist | | | | | At | Signature | + + + + + + | Magnesium | 1.4 (L)Comment: Testing | 1.7 - 2.4 mg/dL | [facility] | | | | performed at [facility], [address] | | LABORATORY | | | | [address], | | | | | | [place] [address] | | | | + + + + + + + + | Specimen | + + | Blood | + + + + + + + | Performing | Address | City/State/Zipcode | Phone Number | | Organization | | | | + + + + + | [facility] | [address] | [place] [address] | [phone] | + + + + + Comprehensive [...] | | | | | performed at [facility], [address] | | | | | | [facility], | | | | | | [place] [address] | | | | + + + + + + + + | Specimen | + + | Blood | + + + + + + + | Performing | Address | City/State/Zipcode | Phone Number | | Organization | | | | + + + + + | [facility] | [address] | [place] [address] | [phone] | + + + + + CBC [...] | | | | | | at [facility];[address] | | | | | | [address];[place] [address] | | | | | |NORMAL PLT MORPH | | | | | |Testing performed at [facility];[address];[place] [address] | | | | | | | | | | + + + + + + + + | Specimen | + + | Blood | + + + + + + + | Performing | Address | City/State/Zipcode | Phone Number | | Organization | | | | + + + + + | [facility] | [address] | [place] [address] | [phone] | + + + + + Protime INR (04/06/2019 2:48 AM PST) + + + + + + | Component | Value | Ref Range | Performed | Pathologist | | | | | At | Signature | + + + + + + | INR | 1.2Comment: REFERENCE | | [facility] | | | | RANGE:0.9 - [...] | | | | | performed at [facility];[address] | | | | | | [address];[place] | | | | | | [address] | | | | + + + + + + + + | Specimen | + + | Blood | + + + + + + + | Performing | Address | City/State/Zipcode | Phone Number | | Organization | | | | + + + + + | [facility] | [address] | [place] [address] | [phone] | + + + + + PTT (04/06/2019 2:48 AM PST) + + + + + + | Component | Value | Ref Range | Performed | Pathologist | | | | | At | Signature | + + + + + + | PTT | 34 (H)Comment: Testing | 23 - 32 seconds | [facility] | | | | performed at [facility];[address] | | LABORATORY | | | | [address];[place] | | | | | | [address] | | | | + + + + + + + + | Specimen | + + | Blood | + + + + + + + | Performing | Address | City/State/Zipcode | Phone Number | | Organization | | | | + + + + + | [facility] | [address] | [place] [address] | [phone] | + + + + + Troponin I (04/06/2019 2:48 AM PST) + + + + + + | Component | Value | Ref Range | Performed | Pathologist | | | | | At | Signature | + + + + + + | Troponin I | 0.198 (H)Comment: 0.04 | 0.00 - 0.04 | [facility] | | | | ng/mL or [...] at | | | | | | [facility] [place] | | | | | | [place] [address] | | | | + + + + + + + + | Specimen | + + | Blood | + + + + + + + | Performing | Address | City/State/Zipcode | Phone Number | | Organization | | | | + + + + + | [facility] | [address] | [place] [address] | [phone] | + + + + + documented [...] | | | | | dose on [facility] 04/12/19 at 0900 | | AM PST [...] | | | | | | longer, upnxog-mjn-rxlsp use of | | | | | [...] | | | | | | | [id number] Use NIGHT DOSE for | | | | | | | doses scheduled: HS, 3AM, | | | | | | | Nighttime 9493-7927 If the BG is | | | [...] PRN, Sore Throat, | | | Starting [facility] 04/12/19 at 2120 | | + +---+ [...] | | | discussed with [facility]. Thank you. | | | | | [...]
--- OUTSIDE RECORDS SUMMARY | ~2019-08-08 | XMS | Encounter Summary ---
Demographics + + + | Address | [address] | | | [place] [address] | + + + | Home Phone | | + + + | Preferred Language | Unknown | + + + | Marital Status | | + + + | Voodoo Affiliation | 1076 | + + + | Race | Unknown | + + + | Ethnic Group | Unknown | + + + Author + + + | Author | [facility] | | | and [place] | + + + | Organization | [facility] | | | and [place] | + + + | Address | Unknown | + + + | Phone | Unavailable | + + + Support + + + + + | Name | Relationship | Address | Phone | + + + + + | Jessica Amezquita | ECON | [address] | | | | | [place] | | | | | [address] | | + + + + + | Bel Solis | ECON | Unknown | | + + + + + Care Team Providers + +------+ + | Care Supervisor Customer Records Division Name | Role | Phone | + +------+ + PCP | Unavailable | + +------+ + Encounter Details +--------+ + + + + | Date | Type | Department | Care Team | Description | +--------+ + + + + | 04/21/ | Hospital | [facility] | Christina Da Silva | | | 2012 | Encounter | [facility] EM[facility]Y | MD [place] [address] | | | | | [place] [address] | [facility], | | | | | [place], [place] | [place] [address] | | | | | [address] | [phone] | | | | | [phone] | | | | | | | Cody Goodwin | | | | | | MD Evelia [address] | | | | | | [place], [place] | | | | | | [address] | | | | | | [phone] | | | | | | | [...] Performed At | + + + | [facility] | [facility] | | Department [address] [facility], [place] | [facility] | | [ rep [address]] [ rep [facility] | | st zip] Signed | - IMAGING | | | | | Patient Name: BIAREAGAN Physician: | | | BILL.[birth year] : 1945 Age: 67 Sex: M Unit #: [id number] | | | Exam Date: 04/21/12 Location: ER | | | Report #: [id number] Page: | | | %(RAD)RES..mtdd.print.filter("pg") of %(RAD) | | | RES..mtdd.print.filter("tpg") | | | | | | Accession Number: [id number] | | | ABDOMEN ONE VIEW 04/22/2012 [...] Transcribed Date/Time: | | | 04/22/2012 18:46 Radiology Teacher: | | | <<Signature on File>> | | | Rico | | | MD Jack04/23/12 0933 <Electronically signed by Rico Santiago MD> | | | Rico Santiago MD 04/22/12 1424 Radiology Teacher: Abhishek | | | Sxqodlkhhdujw79/02/13 1846 Cody Goodwin MD | | | | | + + + + + + + + | Performing | Address | City[facility]State[facility] | Phone Number | | Organization | | | | + + + + + | [facility] | [address] | [place], [place] | [phone] | | [facility] | | [address] | | | - IMAGING | | | | + + + + + CT Abdomen Pelvis w Contrast (04/22/2012 11:43 AM PST) + + | Specimen | + + | | + + + + + | Narrative | Performed At | + + + | [facility] | [place] | | Department [address], [place] | [facility] | | [ rep [address]] [ rep ct [facility] | | st zip] Signed | - IMAGING | | | | | Patient Name: REAGAN AMEZQUITA Physician: | | | BILL. : 1945 Age: 67 Sex: M Unit #: [id number] | | | Exam Date: 04/21/12 Location: ER | | | Report #: [id number] Page: | | | %(RAD)RES..mtdd.print.filter("pg") of %(RAD) | | | RES..mtdd.print.filter("tpg") | | | | | | Accession Number: [id number] | | | CT SCAN OF THE [...] | | PRELIMINARY REPORT WAS SENT BY [employer] AT 10:02 P.M. ON | | | 04/21/12. Dictated Date/Time: 04/22/2012 11:43 | | | Transcribed Date/Time: 04/22/2012 15:29 Radiology Teacher: | | | <<Signature on File>> | | | Rico | | | MD Jack04/23/12 0933 <Electronically signed by Rico Santiago MD> | | | Rico Santiago MD 04/22/12 1143 Radiology Teacher: Abhishek | | | [id number]/02/13 1529 Cody Goodwin MD | | | | | + + + + + + + + | Performing | Address | City/State/Zipcode | Phone Number | | Organization | | | | + + + + + | [facility] | [address] | [place] | [phone] | | [facility] | | [address] | | | - IMAGING | | [...] + | [facility] | [address] | [place] | [phone] | | [facility] | | [address] | | | - LABORATORY | | | | + + + + + | [facility] | [address] | [place], [place] | | | [facility] | | [address] | | | - LABORATORY | [...] + | [facility] | [address] | [place] | [phone] | | [facility] | | [facility] | | | - LABORATORY | | | | + + + + + | [facility] | [address] | [place], [place] | | | [facility] | | [address] [place] [address] | | | - LABORATORY | | | | + + + + + documented in this encounter Visit Diagnoses Not on filedocumented in this encounter
--- OUTSIDE RECORDS SUMMARY | ~2019-08-08 | XMS | Encounter Summary ---
Demographics + + + | Address | [address] | | | [place] [address] | + + + | Home Phone [...] + | Jessica Shepard | ECON | [address] | | | | | [place] | | | | | [address] | | + + + + + | Bel Solis | ECON | Unknown | | + + + + + Care Team Providers + +------+ + | Care Senior Ui Developer Name | Role | Phone | [...] + + | 05/11/ | Documentati | [facility] | Nimo Westbrook, | Other (Labs from | | 2019 | on | INFECTIOUS DISEASE | Industrial Engineering Technologist | [facility] | | | | [address] | | 04/26/2019- | | | | [place] | | 0) | | | | [address] | | | | | | [phone] | | | +--------+ + + + [...] of this encounter Progress Notes Nimo Westbrook, Industrial Engineering Technologist - 05/11/2019 1:36 PM PST*Labs from [facility] 08/2019 (CBC,BMP,VANCOMYCIN TROUGH).. *Labs from [facility] 05/01/2019 (CBC,CMP, ESR,CRP, VANCOMYCIN TROUGH).. *Labs from [facility] 05/03/2019 (CMP,VANCOMYCIN TROUGH). *Labs from [facility] 05/06/2019 (BMP,VANCOMYCIN TROUGH). *Labs from [facility] 05/09/2019 (BMP,VANCOMYCIN TROUGH RECEIVED: 05/10/2019 Labs were abstracted into [facility] and sent to scan. Kaey CMA Tdocumented in this encounter Plan of [...] LAB | [address] [facility] | [place] | [phone] | | [facility] | | [address] | | + + + + + [...] LAB | [address] [facility] | [place] | [phone] | | [facility] | | [address] | | + + + + + [...] + + + | REFERENCE LAB | [address] [facility] | [place] | [phone] | | [facility] | | [address] | | + + + + + [...] LAB | [address] [facility] | [place] | [phone] | | [facility] | | [address] | | + + + + + [...] [address] | [place] | [phone] | | [facility] | | [address] | | + + + + + [...] LAB | [address] [facility] | [place], [place] | [phone] | | [facility] | | [address] | | + + + + + [...] + | REFERENCE LAB | [address] [facility] | [place], [place] | [phone] | | [facility] | | [address] | | + + + + + [...] + | REFERENCE LAB | [address] | [place] | [phone] | | [facility] | | [address] | | + + + + + [...] [address] | [place] | [phone] | | [facility] | | [address] | | + + + + + [...] [address] | [place] | [phone] | | [facility] | | [address] | | + + + + + [...] + + | REFERENCE LAB | [address] [facility] | [place] | [phone] | | [facility] | | [address] | | + + + + + [...] LAB | [address] [facility] | [place] | [phone] | | [facility] | | [address] | | + + + + + [...] | [address] [facility] | [place] | [phone] | | [facility] | | [address] | | + + + + + [...] [address] | [place] | [phone] | | [facility] | Blvd. | [address] | | | LABORATORY | | | | + + + + + | REFERENCE LAB | [address] [facility] | [place], [place] | | | [facility] | Blvd. | [address] | | | LABORATORY | | | [...]
--- OUTSIDE RECORDS SUMMARY | ~2019-08-08 | XMS | Encounter Summary ---
Demographics + + + | Address | [address] | | | [place] [address] | + + + | Home Phone [...] + | Jessica Shepard | ECON | [address] | | | | | [place] | | | | | [address] | | + + + + + | Bel Solis | ECON | Unknown | | + + + + + Care Team Providers + +------+ + | Care Driller Portable Name | Role | Phone | + +------+ + PCP | Unavailable | + +------+ + Encounter Details +--------+ + + + + | Date | Type | Department | Care Team | Description | +--------+ + + + + | 09/14/ | Hospital | [facility] | | | | 2001 | Encounter | MED CTR XRAY [address] | | | | | | [place] | | | | | | [place] [address] | | | | | | [phone] | | | +--------+ + + + [...]
--- OUTSIDE RECORDS SUMMARY | ~2019-08-08 | XMS | Encounter Summary ---
Demographics + + + | Address | [address] | | | [place] [address] | + + + | Home Phone [...] + | Jessica Shepard | ECON | [address] | | | | | [place] | | | | | [address] | | + + + + + | Bel Solis | ECON | Unknown | | + + + + + Care Team Providers + +------+ + | Care Bacteriologist Industrial Name | Role | Phone | + +------+ + | Jamar Manuel MD | PCP | | + +------+ + Encounter Details +--------+---------+ + + + | Date | Type | Department | Care Team | Description | +--------+---------+ + + + | 04/10/ | Surgery | [facility] | Aleksander Montiel, | CYSTOSCOPY | | 2019 | | [facility] | MD Nash SMITH | | | | | OPERATING ROOM [address] [place], [place] | | | | | [facility] | [address] | | | | | [place], [place] | [phone] | | | | | [address] | | | | | | [phone] | | | +--------+---------+ + + + [...] other chronic comorbidities who pre sents to [facility] ER on 04/06 for shortness of breath admitted with 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 The patient was admitted to regular medical floor and started on optimal medical management . On-call country manager (Dr. Ruelas) recommended continued medical management. Patient [...] inferior defect with partial improvement at rest secretary administrative assistant was i nformed by hospitalist colleague recommended [...] their primary care provider within 1 w [facility] after discharge, follow-up with ID in 2 weeks after discharge, follow-up with vascular s urgery as per their recommendations or otherwise within 2 weeks after discharge. The patien t will need to follow-up with his outpatient country manager within 1 to 2 weeks after discharg [...] Reviewed. Discharge Information: Follow up: [facility] SAMM [address] [facility] [id number] Bhanu Seaman PA-C [address] [place] [facility] [address] In 2 weeks Jamar Manuel MD [address] [place] [address] Schedule an appointment as soon as possible for a visit in 1 week Hero Gaston MD [address] [facility] [address] Schedule an appointment as soon as possible for a visit in 2 weeks Post hospital discharge follow-up Dr. [place] Ruelas [address] [facility] [address] [facility] [address] Schedule an appointment as soon as [...] per tablet aka: NORCO . Disposition: senior living Condition: Stable Code Status: Full Code Discharge [...] numbness Complications from anesthesia Date Last Reviewed: 08/20/[id number] [employer] [place] [address]. All righ ts reserved. This information is [...] Wakefield PA-C - 04/21/2019 8:21 AM PST [facility] Service: Vascular Surgery Progress Note SUBJECTIVE Patient Summary: 74 y.o. man with complex medical issues and LE ischemic ulcers, he wa s recently admitted to the [facility] from 03/28/19 to 04/04/19 where he was treated/ diagnosed with systolic heart failure, type 2 SD/NSTEMI, SHAE, ARF. O2 desaturation brought him from SNF to [facility] and current admission today with CHF and [...] Holliday RN - 04/20/2019 4:40 PM PST [facility] Service: Wound Care Follow Up Note Hospital [...] Wound Type: Diabetic Ulcer Side: Left [place] ation: lateral Location: foot Wound Subtype: ulceration, [...] M D - 04/20/2019 2:16 PM PST [facility] Service: Hospitalist Progress Note Pt: Reagan Shepard [...] history notable for admit to [facility] from 03/28/19 to 04/04/2019 for CHF exacerbation with eventual dischar ge to [facility]. He then re-presented to same hospital due [...] encounter as of 04/20/19-14:16 IMAGING: Reviewed in [facility], no new results. PROBLEM LIST Principal [...] days of IV antibiotics at [facility] discharged home on with augmentin, now readmitted on 04/06 at [facility] and started on rocephin after [...] SQH Code status: Full Dispo: back to [facility] pending recovery from vascular bypass [...] as indicated. Thank You, Sunshine Love, PharmD, [facility] 04/20/19 1:52 PM Nandini Sánchez se, MD - 04/20/2019 8:56 AM PST [facility] Service: Infectious Diseases Progress [...] Component Value Units Date/Time Culture, Wound, Superficial [[id number]] (Abnormal) (Susceptibility) Collected: 04/06/191545 Order Status: Completed Lab Status: Final result Updated: 04/11/19727 Specimen: Body Fluid from Heel, Right Special Requests LT FOOT Special Requests Testing performed at [facility];[address] [place] [address] RESULT -- 1+ ENTEROCOCCUS FAECALIS Aminoglycosides (except [...] Sensitive SUSCEPTIBLE JESSICA Final Testing performed at [facility], [address] [place] [address] Culture, Wound, Superficial [[id number]] Collected: 04/06/191545 Order Status: Completed Lab Status: Final result Updated: 04/08/1937 Specimen: Body Fluid from Heel, Right Special Requests RIGHT FOOT Special Requests Testing performed at [facility];[address] [place] [address] RESULT -- 1+ NORMAL SKIN CELSA ISOLATED RESULT NO FURTHER WORKUP RESULT Testing performed at [facility], [address] [place] [address] Comment: Testing performed at [facility], [address] [place] [address] Microbiology Results (72 hrs) No results found [...] assisting with dosing and monitorization. Discussed with corrections caseworker regarding OPAT. Discussed with corrections caseworker regarding discharge planning. Dr. Dolan will take over ID service tomorrow. Please call if questions. Hero Richardson MD, MPH Infectious Diseases 04/20/19 Sheila Gage RN - 04/19/2019 7:20 PM PSTEnd of shift chart check complete. Sheila Cabrera RN Sunshine Chen, [facility] - 04/19/2019 3:23 PM PSTFormatting [...] Shaver MD - 04/19/2019 2:46 PM PST [facility] Service: Hospitalist Progress Note Pt: Reagan Shepard [...] history notable for admit to [facility] from 03/28/19 to 04/04/2019 for CHF exacerbation with eventual dischar ge to [facility]. He then re-presented to same hospital due [...] days of IV antibiotics at [facility] discharged home on with augmentin, now readmitted on 04/06 at [facility] and started on rocephin after [...] SQH Code status: Full Dispo: back to [facility] pending recovery from vascular bypass surgery, final ID recs , tentatively planning for ~04/21 Grover Charles MD 2:46 PM 04/19/2019 Portions of this chart may have been copied from previous notes for continuity of care purp ose Hero Sánchez MD - 04/19/2019 9:53 AM PSTFormatting of this note might be different from the ramiro ragsdale. [facility] Service: Infectious Diseases Progress [...] Component Value Units Date/Time Culture, Wound, Superficial [[id number]] (Abnormal) (Susceptibility) Collected: 04/06/19 1546 Order Status: Completed Lab Status: Final result Updated: 04/11/1928 Specimen: Body Fluid from Heel, Right Special Requests LT FOOT Special Requests Testing performed at [facility];[address] [place] [address];[place] [address] RESULT -- 1+ ENTEROCOCCUS FAECALIS Aminoglycosides (except [...] Sensitive SUSCEPTIBLE JESSICA Final Levofloxacin Sensitive SUSCEPTIBLE JESSCIA Final Tobramycin Sensitive SUSCEPTIBLE JESSICA Final Trimethoprim [...] Sensitive SUSCEPTIBLE JESSICA Final Testing performed at [facility], [address] [place] [address] Culture, Wound, Superficial [[id number]] Collected: 04/06/19 1546 Order Status: Completed Lab Status: Final result Updated: 04/08/1937 Specimen: Body Fluid from Heel, Right Special Requests RIGHT FOOT Special Requests Testing performed at [facility];[address] [place] [address] RESULT -- 1+ NORMAL SKIN CELSA ISOLATED RESULT NO FURTHER WORKUP RESULT Testing performed at [facility], [address] [place] [address] Comment: Testing performed at [facility], [address] [place] [address] Culture, Blood [[id number]] Collected: 04/06/19 0338 Order Status: Completed Lab Status: Final result Updated: 04/12/1952 Specimen: Peripheral Blood Special Requests R WRIST Special Requests Testing performed at [facility];[address] [place] [address] RESULT NO GROWTH 6 DAYS RESULT Testing performed at [facility], [address] [place] [address] Comment: Testing performed at [facility], [address] [place] [address] Culture, Blood [[id number]] Collected: 04/06/19 0331 Order Status: Completed Lab Status: Final result Updated: 04/12/1952 Specimen: Peripheral Blood Special Requests L WRIST Special Requests Testing performed at [facility];[address] [place] [address] RESULT NO GROWTH 6 DAYS RESULT Testing performed at [facility], [address] [place] [address] Comment: Testing performed at [facility], [address] [place] [address] Microbiology Results (72 hrs) No results found [...] might be different from the o sheryl. [facility] Service: Vascular Surgery Progress Note SUBJECTIVE Patient Summary: 74 y.o. man with complex medical issues and LE ischemic ulcers, he wa s recently admitted to the [facility] from 03/28/19 to 04/04/19 where he was treated/ diagnosed with systolic heart failure, type 2 SD/NSTEMI, SHAE, ARF. O2 desaturation brought him from SNF to [facility] and current admission today with CHF and [...] Rachel Patino RN - 04/19/2019 5:46 AM [id number] left foot dressing change complete per order. [...] Grover Shaver MD - 4:52 PM PST [facility] Service: Hospitalist Progress Note Pt: Reagan Shepard AGE/SEX: 74 y.o. male ROOM: [facility] OR INTRA OP POOL/[facility]* : 1945 PCP: Jamar Manuel MD ADMIT DATE: 04/06/2019 TODAY'S DATE: 04/18/2019 Hospital Day/Hospital Course: LOS: 12 days Mr. Shepard is a 74-year-old gentleman with a history of bilateral nonhealing diabetic trisha t ulcers, and history of TBI, stroke, insulin dependent DM, who presents with CHF exacerbati on with hospital course complicated by gross hematuria. Recent history notable for admit to [facility] from 03/28/19 to 04/04/2019 for CHF exacerbation with eventual dischar ge to [facility]. He then re-presented to same hospital due [...] the last 72 hours. IMAGING: Reviewed in [facility], no new results. PROBLEM LIST Principal [...] days of IV antibiotics at [facility] discharged home on with augmentin, now readmitted on 04/06 at [facility] and started on rocephin after [...] SQH Code status: Full Dispo: back to [facility] pending cardiac evaluation/optimization, vascular bypass [...] as indicated. Thank You, Sunshine Love, PharmD, [facility] 04/18/19 2:45 PM Syed López PTA [...] might be different from t kevin original. [facility] Service: Infectious Diseases Progress [...] Component Value Units Date/Time Culture, Wound, Superficial [[id number]] (Abnormal) (Susceptibility) Collected: 04/06/19 1546 Order Status: Completed Lab Status: Final result Updated: 04/11/19 0728 Specimen: Body Fluid from Heel, Right Special Requests LT FOOT Special Requests Testing performed at [facility];[address] [place] [address];[place] [address] RESULT -- 1+ ENTEROCOCCUS FAECALIS Aminoglycosides (except [...] Sensitive SUSCEPTIBLE JESSICA Final Testing performed at [facility], [address] [place] [address] Culture, Wound, Superficial [[id number]] Collected: 04/06/19 1546 Order Status: Completed Lab Status: Final result Updated: 04/08/1937 Specimen: Body Fluid from Heel, Right Special Requests RIGHT FOOT Special Requests Testing performed at [facility];[address] [place] [address] RESULT -- 1+ NORMAL SKIN CELSA ISOLATED RESULT NO FURTHER WORKUP RESULT Testing performed at [facility], [address] [place] [address] Comment: Testing performed at [facility], [address] [place] [address] Culture, Blood [[id number]] Collected: 04/06/198 Order Status: Completed Lab Status: Final result Updated: 04/12/1952 Specimen: Peripheral Blood Special Requests R WRIST Special Requests Testing performed at [facility];[address] [place] [address] RESULT NO GROWTH 6 DAYS RESULT Testing performed at [facility], [address] [place] [address] Comment: Testing performed at [facility], [address] [place] [address] Culture, Blood [[id number]] Collected: 04/06/19330 Order Status: Completed Lab Status: Final result Updated: 04/12/1952 Specimen: Peripheral Blood Special Requests L WRIST Special Requests Testing performed at [facility];[address] [place] [address] RESULT NO GROWTH 6 DAYS RESULT Testing performed at [facility], [address] [place] [address] Comment: Testing performed at [facility], [address] [place] [address] Microbiology Results (72 hrs) No results found [...] might be different from the o riginal. [facility] Service: Vascular Surgery Progress Note SUBJECTIVE Patient Summary: 74 y.o. man with complex medical issues and LE ischemic ulcers, he wa s recently admitted to the [facility] from 03/28/19 to 04/04/19 where he was treated/ diagnosed with systolic heart failure, type 2 SD/NSTEMI, SHAE, ARF. O2 desaturation brought him from SNF to [facility] and current admission today with CHF and [...] of shift chart check review Sunshine Chen [facility] - 04/17/2019 1:38 PM PST [...] as indicated. Thank You, Sunshine Love, PharmD, [facility] 04/17/19 1:38 PM Grover Shaver MD - 04/17/2019 12:25 PM PST [facility] Service: Hospitalist Progress Note Pt: Reagan Shepard AGE/SEX: 74 y.o. male ROOM: [address] [place] [address] : 1945 PCP: Jamar Manuel MD ADMIT DATE: 04/06/2019 TODAY'S DATE: 04/17/2019 Hospital Day/Hospital Course: LOS: 11 days Mr. Shepard is a 74-year-old gentleman with a history of bilateral nonhealing diabetic trisha t ulcers, and history of TBI, stroke, insulin dependent DM, who presents with CHF exacerbati on with hospital course complicated by gross hematuria. Recent history notable for admit to [facility] from 03/28/19 to 04/04/2019 for CHF exacerbation with eventual dischar ge to [facility]. He then re-presented to same hospital due [...] the last 72 hours. IMAGING: Reviewed in [facility], no new results. PROBLEM LIST Principal [...] days of IV antibiotics at [facility] discharged home on with augmentin, now readmitted on 04/06 at [facility] and started on rocephin after [...] SQH Code status: Full Dispo: back to [facility] pending cardiac evaluation/optimization, vascular bypass donna wero, final ID recs, tentatively planning for ~04/21 Grover Charles MD 12:25 PM 04/17/2019 Portions of this chart may have been copied from previous notes for continuity of care purp ose Rico Modi MD - 11:19 AM PST [facility] Service: Cardiology/[facility] Interventional cardiology note RE: Reagan [...] minimal reversib ility 2. Recent non-Q wave SD 3. Severe peripheral vascular disease 4. Diabetes [...] might be different from the origi nal. [facility] Service: Infectious Diseases Progress [...] Component Value Units Date/Time Culture, Wound, Superficial [[id number]] (Abnormal) (Susceptibility) Collected: 04/06/19 1546 Order Status: Completed Lab Status: Final result Updated: 04/11/19 0728 Specimen: Body Fluid from Heel, Right Special Requests LT FOOT Special Requests Testing performed at [facility];[address] [place] [address];[place] [address] RESULT -- 1+ ENTEROCOCCUS FAECALIS Aminoglycosides (except [...] Sensitive SUSCEPTIBLE JESSICA Final Testing performed at [facility], [address] [place] [address] Culture, Wound, Superficial [[id number]] Collected: 04/06/19 1546 Order Status: Completed Lab Status: Final result Updated: 04/08/19 0937 Specimen: Body Fluid from Heel, Right Special Requests RIGHT FOOT Special Requests Testing performed at [facility];[address] [place] [address] RESULT -- 1+ NORMAL SKIN CELSA ISOLATED RESULT NO FURTHER WORKUP RESULT Testing performed at [facility], [address] [place] [address] Comment: Testing performed at [facility], [address] [place] [address] Culture, Blood [[id number]] Collected: 04/06/19 0338 Order Status: Completed Lab Status: Final result Updated: 04/12/19 0652 Specimen: Peripheral Blood Special Requests R WRIST Special Requests Testing performed at [facility];[address] [place] [address] RESULT NO GROWTH 6 DAYS RESULT Testing performed at [facility], [address] [place] [address] Comment: Testing performed at [facility], [address] [place] [address] Culture, Blood [[id number]] Collected: 04/06/19 0331 Order Status: Completed Lab Status: Final result Updated: 04/12/19 0652 Specimen: Peripheral Blood Special Requests L WRIST Special Requests Testing performed at [facility];[address] [place] [address] RESULT NO GROWTH 6 DAYS RESULT Testing performed at [facility], [address] [place] [address] Comment: Testing performed at [facility], [address] [place] [address] Microbiology Results (72 hrs) No results found [...] might be different from the o sheryl. [facility] Service: Vascular Surgery Progress Note SUBJECTIVE Patient Summary: 74 y.o. man with complex medical issues and LE ischemic ulcers, he wa s recently admitted to the [facility] from 03/28/19 to 04/04/19 where he was treated/ diagnosed with systolic heart failure, type 2 SD/NSTEMI, SHAE, ARF. O2 desaturation brought him from SNF to [facility] and current admission today with CHF and [...] Gross hematuria CODE STATUS: Full Code Ambrosio Tyosn MD DAILY PROGRESS NOTE CURRENT ASSESSMENT AND [...] Sánchez MD - 04/16/2019 6:49 PM PST [facility] Service: Infectious Diseases Progress [...] Component Value Units Date/Time Culture, Wound, Superficial [[id number]] (Abnormal) (Susceptibility) Collected: 04/06/19 1546 Order Status: Completed Lab Status: Final result Updated: 04/11/19 0163 Specimen: Body Fluid from Heel, Right Special Requests LT FOOT Special Requests Testing performed at [facility];[address] [place] [address] RESULT -- 1+ ENTEROCOCCUS FAECALIS Aminoglycosides (except [...] Sensitive SUSCEPTIBLE JESSICA Final Testing performed at [facility], [address] [place] [address] Culture, Wound, Superficial [[id number]] Collected: 04/06/19 1546 Order Status: Completed Lab Status: Final result Updated: 04/08/19 0937 Specimen: Body Fluid from Heel, Right Special Requests RIGHT FOOT Special Requests Testing performed at [facility];[address] [place] [address] RESULT -- 1+ NORMAL SKIN CELSA ISOLATED RESULT NO FURTHER WORKUP RESULT Testing performed at [facility], [address] [place] [address] Comment: Testing performed at [facility], [address] [place] [address] Culture, Blood [[id number]] Collected: 04/06/19 0338 Order Status: Completed Lab Status: Final result Updated: 04/12/19 0652 Specimen: Peripheral Blood Special Requests R WRIST Special Requests Testing performed at [facility];[address] [place] [address] RESULT NO GROWTH 6 DAYS RESULT Testing performed at [facility], [address] [place] [address] Comment: Testing performed at [facility], [address] [place] [address], [place] [address] Culture, Blood [[id number]] Collected: 04/06/19 0331 Order Status: Completed Lab Status: Final result Updated: 04/12/1952 Specimen: Peripheral Blood Special Requests L WRIST Special Requests Testing performed at [facility];[address] [place] [address];[place] [address] RESULT NO GROWTH 6 DAYS RESULT Testing performed at [facility], [address] [facility], [place] [address] Comment: Testing performed at [facility], [address] [place] [address], [place] [address] Microbiology Results (72 hrs) No results found [...] note might be different from the original. [facility] Service: Hospitalist Progress Note Pt: Reagan Shepard AGE/SEX: 74 y.o. male ROOM: [address] [place] [address] : 1945 PCP: Jamar Manuel MD ADMIT DATE: 04/06/2019 TODAY'S DATE: 04/16/2019 Hospital Day/Hospital Course: LOS: 10 days Mr. Shepard is a 74-year-old gentleman with a history of bilateral nonhealing diabetic trisha t ulcers, and history of TBI, stroke, insulin dependent DM, who presents with CHF exacerbati on with hospital course complicated by gross hematuria. Recent history notable for admit to [facility] from 03/28/19 to 04/04/2019 for CHF exacerbation with eventual dischar ge to [facility]. He then re-presented to same hospital due [...] days of IV antibiotics at [facility] discharged home on with augmentin, now readmitted on 04/06 at [facility] and started on rocephin after [...] SQH Code status: Full Dispo: back to [facility] pending cardiac evaluation/optimization, vascular bypass [...] [address]ige[address] RD 04/16/2019 3:21 PM Sunshine Chen, [facility] - 04/16/2019 12:18 PM PST [...] Patient encouraged to discuss medication changes with country manager ragini stanley to stopping medications or making any changes. Patient's questions answered. Heart Fail ure Hot Line number provided to patient. Face to face time was spent with patient providing counseling and education for congestive heart failure. Bhanu Wakefield P A-C - 04/16/2019 8:43 AM PST [facility] Service: Vascular Surgery Progress Note SUBJECTIVE Patient Summary: 74 y.o. man with complex medical issues and LE ischemic ulcers, he wa s recently admitted to the [facility] from 03/28/19 to 04/04/19 where he was treated/ diagnosed with systolic heart failure, type 2 SD/NSTEMI, SHAE, ARF. O2 desaturation brought him from SNF to [facility] and current admission today with CHF and [...] MD - 04/15/2019 1 2:48 PM PST [facility] Service: Hospitalist Progress Note Pt: Reagan Shepard AGE/SEX: 74 y.o. male ROOM: [facility]/4452- : 1945 PCP: Jamar Manuel MD [...] history notable for admit to [facility] from 03/28/19 to 04/04/2019 for CHF exacerbation with eventual dischar ge to [facility]. He then re-presented to same hospital due [...] 04/14/19 0629 BNP 587.58* IMAGING: Reviewed in [facility], no new results. PROBLEM LIST Principal [...] risk stratification . -cardiology consulted -NPO at [facility] for nuc med stress test in morning [...] days of IV antibiotics at [facility] discharged home on with augmentin, now readmitted on 04/06 at [facility] and started on rocephin after [...] SQH Code status: Full Dispo: back to [facility] pending cardiac evaluation/optimization, vascular bypass donna wero, final ID recs, likely 4-5 more days in hospital Grover Charles MD 12:48 PM 04/15/2019 Portions of this chart may have been copied from previous notes for continuity of care purp ose roctor, Sheila Brown [facility] - 04/15/2019 10:55 AM PST [...] might be differ ent from the original. [facility] Service: Infectious Diseases Progress [...] Component Value Units Date/Time Culture, Wound, Superficial [[id number]] (Abnormal) (Susceptibility) Collected: 04/06/19 1546 Order Status: Completed Lab Status: Final result Updated: 04/11/19 0728 Specimen: Body Fluid from Heel, Right Special Requests LT FOOT Special Requests Testing performed at [facility];[address] [place] [address] RESULT -- 1+ ENTEROCOCCUS FAECALIS Aminoglycosides (except [...] Sensitive SUSCEPTIBLE JESSICA Final Testing performed at [facility], [address] [place] [address]11 Culture, Wound, Superficial [[id number]] Collected: 04/06/19 1546 Order Status: Completed Lab Status: Final result Updated: 04/08/19 0937 Specimen: Body Fluid from Heel, Right Special Requests RIGHT FOOT Special Requests Testing performed at [facility];[address] [place] [address]682 RESULT -- 1+ NORMAL SKIN CELSA ISOLATED RESULT NO FURTHER WORKUP RESULT Testing performed at [facility], [address] [place] [address] Comment: Testing performed at [facility], [address] [place] [address]46 Culture, Blood [[id number]] Collected: 04/06/19 0338 Order Status: Completed Lab Status: Final result Updated: 04/12/1952 Specimen: Peripheral Blood Special Requests R WRIST Special Requests Testing performed at [facility];[address] [place] [address] 7[address] RESULT NO GROWTH 6 DAYS RESULT Testing performed at [facility], [address] [place] [address] Comment: Testing performed at [facility], [address] [place] [address] Culture, Blood [[id number]] Collected: 04/06/19 0331 Order Status: Completed Lab Status: Final result Updated: 04/12/1952 Specimen: Peripheral Blood Special Requests L WRIST Special Requests Testing performed at [facility];[address] [place] [address] 8[address] RESULT NO GROWTH 6 DAYS RESULT Testing performed at [facility], [facility] [place] [address] Comment: Testing performed at [facility], [address] [place] [address] Microbiology Results (72 hrs) No results found [...] note might be different from the origin [facility] Service: Hospitalist Progress Note Pt: Reagan [...] history notable for admit to [facility] from 03/28/19 to 04/04/2019 for CHF exacerbation with eventual dischar ge to [facility]. He then re-presented to same hospital due [...] 04/14/19 0629 BNP 587.58* IMAGING: Reviewed in [facility], no new results. PROBLEM LIST Principal [...] days of IV antibiotics at [facility] discharged home on with augmentin, now readmitted on 04/06 at [facility] and started on rocephin after [...] date with age appropriate cancer screening PPx: [facility] Code status: Full Dispo: back to [facility] pending improvement in gross hematuria, CHF exacerbation, re peat angiogram, final ID recs, likely 4-5 more days in hospital Grover Charles MD 1:29 PM 04/14/2019 Portions of this chart may have been copied from previous notes for continuity of care purp ose Lyric Molina RN - 04/14/2019 1:27 PM PST [facility] Service: Wound Care Follow Up Note Hospital [...] any additional questions. Lyric Mclain RN, CMSRN, [facility] Inpatient Wound Ostomy Care [phone] 04/14/2019 1:29 PM Dheeraj Barraza, PT - [...] vs stable.Vandana Luciano RN obrandi, Meghan Wolff, [facility] - 04/14/2019 6:31 AM PST [...] indicated. Thank You, Meghan Calvillo, Pharm D, [facility] 04/14/2019, 6:19 AM Vancomycin Dosing History Date [...] Shaver MD - 04/13/2019 4:02 PM PST [facility] Service: Hospitalist Progress Note Pt: Reagan Shepard AGE/SEX: 74 y.o. male ROOM: [address] [place] [address] : 1945 PCP: Jamar Manuel MD ADMIT DATE: 04/06/2019 TODAY'S DATE: 04/13/2019 Hospital Day/Hospital Course: LOS: 7 days Mr. Shepard is a 74-year-old gentleman with a history of bilateral nonhealing diabetic trisha t ulcers, and history of TBI, stroke, insulin dependent DM, who presents with CHF exacerbati on with hospital course complicated by gross hematuria. Recent history notable for admit to [facility] from 03/28/19 to 04/04/2019 for CHF exacerbation with eventual dischar ge to [facility]. He then re-presented to same hospital due [...] days of IV antibiotics at [facility] discharged home on with augmentin, now readmitted on 04/06 at [facility] and started on rocephin after [...] date with age appropriate cancer screening PPx: [facility] Code status: Full Dispo: back to [facility] pending improvement in gross hematuria, [...] 113.3 kg Adjusted body weight: 89.1 kg [place] body weight: 73 kg Current Vital Signs: [...] [facility]ing a level once the patient [...] as indicated. Thank You, Sunshine Love, PharmD, [facility] 04/13/19 3:20 PM Nandini Sánchez se, MD - 04/13/2019 10:54 AM PST [facility] Service: Infectious Diseases Progress [...] Component Value Units Date/Time Culture, Wound, Superficial [[id number]] (Abnormal) (Susceptibility) Collected: 04/06/19 1546 Order Status: Completed Lab Status: Final result Updated: 04/11/19 0728 Specimen: Body Fluid from Heel, Right Special Requests LT FOOT Special Requests Testing performed at [facility];[address] [place] [address];[place] [address] RESULT -- 1+ ENTEROCOCCUS FAECALIS Aminoglycosides (except [...] Resistant RESISTANT JESSICA Final Cefepime Sensitive SUSCEPTIBLE JSESICA Final Cefoxitin Resistant RESISTANT JESSICA Final Ceftazidime [...] Sensitive SUSCEPTIBLE JESSICA Final Testing performed at [facility], [address] [place] [address] Culture, Wound, Superficial [[id number]] Collected: 04/06/19 1546 Order Status: Completed Lab Status: Final result Updated: 04/08/1937 Specimen: Body Fluid from Heel, Right Special Requests RIGHT FOOT Special Requests Testing performed at [facility];[address] [place] [address]162 RESULT -- 1+ NORMAL SKIN CELAS ISOLATED RESULT NO FURTHER WORKUP RESULT Testing performed at [facility], [address] [place] [address] Comment: Testing performed at [facility], [address] [place] [address] 7[address]45 Culture, Blood [[id number]] Collected: 04/06/198 Order Status: Completed Lab Status: Final result Updated: 04/12/1952 Specimen: Peripheral Blood Special Requests R WRIST Special Requests Testing performed at [facility];[address] [place] [address]558 RESULT NO GROWTH 6 DAYS RESULT Testing performed at [facility], [address] [place] [address] Comment: Testing performed at [facility], [address] [place] [address] 34887 Culture, Blood [[id number]] Collected: 04/06/19330 Order Status: Completed Lab Status: Final result Updated: 04/12/1952 Specimen: Peripheral Blood Special Requests L WRIST Special Requests Testing performed at [facility];[address] [place] [address]141 RESULT NO GROWTH 6 DAYS RESULT Testing performed at [facility], [address] [place] [address] Comment: Testing performed at [facility], [address] [place] [address] 24953 Microbiology Results (72 hrs) No results found [...] might be different from the o sheryl. [facility] Service: Vascular Surgery Progress Note SUBJECTIVE Patient Summary: 74 y.o. man with complex medical issues and LE ischemic ulcers, he wa s recently admitted to the [facility] from 03/28/19 to 04/04/19 where he was treated/ diagnosed with systolic heart failure, type 2 SD/NSTEMI, SHAE, ARF. O2 desaturation brought him from SNF to [facility] and current admission today with CHF and [...] risks. Signed consent obtained. Will proceed to [facility] Caramel Cutter Hand today for right leg angiogram. Moderate Sedation [...] might be different from the o riginal. [facility] Service: Infectious Diseases Progress [...] Component Value Units Date/Time Culture, Wound, Superficial [[id number]] (Abnormal) (Susceptibility) Collected: 04/06/19 1546 Order Status: Completed Lab Status: Final result Updated: 04/11/19 0728 Specimen: Body Fluid from Heel, Right Special Requests LT FOOT Special Requests Testing performed at [facility];[address] [place] [address];[place] [address] RESULT -- 1+ ENTEROCOCCUS FAECALIS Aminoglycosides (except [...] Sensitive SUSCEPTIBLE JESSICA Final Testing performed at [facility], [address] [place] [address] Culture, Wound, Superficial [[id number]] Collected: 04/06/19 1546 Order Status: Completed Lab Status: Final result Updated: 04/08/19 0937 Specimen: Body Fluid from Heel, Right Special Requests RIGHT FOOT Special Requests Testing performed at [facility];[address] [place] [address] RESULT -- 1+ NORMAL SKIN CELSA ISOLATED RESULT NO FURTHER WORKUP RESULT Testing performed at [facility], [address] [place] [address] Comment: Testing performed at [facility], [address] [place] [address]234 Culture, Blood [[id number]] Collected: 04/06/19 0338 Order Status: Completed Lab Status: Final result Updated: 04/12/19 0652 Specimen: Peripheral Blood Special Requests R WRIST Special Requests Testing performed at [facility];[address] [place] [address]4488 RESULT NO GROWTH 6 DAYS RESULT Testing performed at [facility], [address] [place] [address] Comment: Testing performed at [facility], [address] [place] [address]19 Culture, Blood [[id number]] Collected: 04/06/19 0331 Order Status: Completed Lab Status: Final result Updated: 04/12/19 0652 Specimen: Peripheral Blood Special Requests L WRIST Special Requests Testing performed at [facility];[address] [place] [address];[place] [address] RESULT NO GROWTH 6 DAYS RESULT Testing performed at [facility], [address] [place] [address] Comment: Testing performed at [facility], [address] [place] [address], [place] [address] Microbiology Results (72 hrs) No results found [...] might be different from the origi nal. [facility] Service: Hospitalist Progress Note Pt: Reagan Shepard [...] history notable for admit to [facility] from 03/28/19 to 04/04/2019 for CHF exacerbation with eventual dischar ge to [facility]. He then re-presented to same hospital due [...] days of IV antibiotics at [facility] discharged home on with augmentin, now readmitted on 04/06 at [facility] and started on rocephin after [...] SQH Code status: Full Dispo: back to [facility] pending improvement in gross hematuria, CHF exacerbation, re peat angiogram, final ID recs, likely 4-5 more days in hospital Grover Charles MD 4:43 PM 04/12/2019 Portions of this chart may have been copied from previous notes for continuity of care purp ose Bhanu Wakefield PA-C - 04/12/2019 4:00 PM PST [facility] Service: Vascular Surgery Progress Note SUBJECTIVE Patient Summary: 74 y.o. man with complex medical issues and LE ischemic ulcers, he wa s recently admitted to the [facility] from 03/28/19 to 04/04/19 where he was treated/ diagnosed with systolic heart failure, type 2 SD/NSTEMI, SHAE, ARF. O2 desaturation brought him from SNF to [facility] and current admission today with CHF and [...] Bhanu Seaman PA-C Vascular Surgery roSunshine streeter, [facility] - 04/12/2019 12:27 PM PST Vancomycin Dosing Per Pharmacy Subjective/Objective Reagan Shepard is a 74 y.o. 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 Additional antimicrobials: zosyn Quadriplegic/Paraplegic: no Diabetes: yes Baseline Serum Creatinine: 0.6 mg/dL Actual weight: 113.3 kg Adjusted body weight: 89.1 kg [place] body weight: 73 kg Current Vital Signs: [...] as indicated. Thank You, Sunshine Love, PharmD, [facility] 04/12/19 3:27 PM Grover Shaver MD - 04/11/2019 5:06 PM PST [facility] Service: Hospitalist Progress Note Pt: Reagan Shepard [...] history notable for admit to [facility] from 03/28/19 to 04/04/2019 for CHF exacerbation with eventual dischar ge to [facility]. He then re-presented to same hospital due [...] days of IV antibiotics at [facility] discharged home on with augmentin, now readmitted on 04/06 at [facility] and started on rocephin after [...] above) Code status: Full Dispo: back to [facility] pending improvement in gross hematuria and CHF exacerbation Grover Charles MD 5:06 PM 04/11/2019 Portions of this chart may have been copied from previous notes for continuity of care purp ose roctor, Sheila Brown [facility] - 04/11/2019 2:03 PM PST Vancomycin Dosing Per Pharmacy Subjective/Objective Reagan Shepard is a 74 y.o. 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 Additional antimicrobials: zosyn Quadriplegic/Paraplegic: no Diabetes: yes Baseline Serum Creatinine: 0.6 mg/dL Actual weight: 113.3 kg Adjusted body weight: 89.1 kg [place] body weight: 73 kg Current Vital Signs: [...] therapy as indicated. Thank You, Sheila Ahuja [facility], 04/11/2019, 1:51 PM Hero Sánchez MD - 04/11/2019 10:09 AM PSTFormatting of this note might be different from stephanie brown original. [facility] Service: Infectious Diseases Progress [...] Component Value Units Date/Time Culture, Wound, Superficial [[id number]] (Abnormal) (Susceptibility) Collected: 04/06/19 154 Order Status: Completed Lab Status: Final result Updated: 04/11/19727 Specimen: Body Fluid from Heel, Right Special Requests LT FOOT Special Requests Testing performed at [facility];[address] [place] [address];[place] [address] RESULT -- 1+ ENTEROCOCCUS FAECALIS Aminoglycosides (except [...] Sensitive SUSCEPTIBLE JESSICA Final Testing performed at [facility], [address] [place] [address], [place] [address] Culture, Wound, Superficial [[id number]] Collected: 04/06/19 1546 Order Status: Completed Lab Status: Final result Updated: 04/08/19936 Specimen: Body Fluid from Heel, Right Special Requests RIGHT FOOT Special Requests Testing performed at [facility];[address] [place] [address] RESULT -- 1+ NORMAL SKIN CELSA ISOLATED RESULT NO FURTHER WORKUP RESULT Testing performed at [facility], [address] [place] [address] Comment: Testing performed at [facility], [address] [place] [address] Culture, Blood [[id number]] Collected: 04/06/198 Order Status: Completed Lab Status: Preliminary result Updated: 04/07/19812 Specimen: Peripheral Blood Special Requests R WRIST Special Requests Testing performed at [facility];[address] [place] [address]01 RESULT NO GROWTH AT THIS TIME RESULT Testing performed at [facility], [address] [place] [address] Comment: Testing performed at [facility], [address] [place] [address] 35009 Culture, Blood [[id number]] Collected: 04/06/191 Order Status: Completed Lab Status: Preliminary result Updated: 04/07/19812 Specimen: Peripheral Blood Special Requests L WRIST Special Requests Testing performed at [facility];[address] [place] [address] 23829 RESULT NO GROWTH AT THIS TIME RESULT Testing performed at [facility], [address] [place] [address] 7[address]51 Comment: Testing performed at [facility], [address] [place] [address]22 Microbiology Results (72 hrs) No results found [...] Shaver MD - 04/10/2019 4:51 PM PST [facility] Service: Hospitalist Progress Note Pt: Reagan Shepard AGE/SEX: 74 y.o. male ROOM: [facility]/4452- : 1945 PCP: Jamar Manuel MD [...] history notable for admit to [facility] from 03/28/19 to 04/04/2019 for CHF exacerbation with eventual dischar ge to [facility]. He then re-presented to same hospital due [...] INR 1.2 PTT 34* IMAGING: Reviewed in [facility], no new results. PROBLEM LIST Principal [...] days of IV antibiotics at [facility] discharged home on with augmentin, now readmitted on 04/06 at [facility] and started on rocephin after [...] above) Code status: Full Dispo: back to [facility] pending improvement in gross hematuria and CHF exacerbation Grover Charles MD 4:51 PM 04/10/2019 Portions of this chart may have been copied from previous notes for continuity of care purp ose Hero Sánchez MD - 04/10/2019 2:27 PM PSTFormatting of this note might be different from the ramiro ragsdale. [facility] Service: Infectious Diseases Progress [...] Component Value Units Date/Time Culture, Wound, Superficial [[id number]] (Abnormal) (Susceptibility) Collected: 04/06/191545 Order Status: Completed Lab Status: Preliminary result Updated: 04/10/19929 Specimen: Body Fluid from Heel, Right Special Requests LT FOOT Special Requests Testing performed at [facility];[address] [place] [address];[place] [address] RESULT -- 1+ ENTEROCOCCUS FAECALIS Aminoglycosides (except for high-level resistance testing), cephalosporins, clindamycin, an d trimethoprim-sulfamethoxazole may appear active in vitro but they are not effective clinic ally. RESULT -- 1+ ENTEROBACTER CLOACAE COMPLEX RESULT -- 1+ STAPHYLOCOCCUS AUREUS RESULT SUSCEPTIBILITY TO FOLLOW RESULT Testing performed at [facility], [address] [place] [address] Susceptibility Enterococcus faecalis (1) Antibiotic Interpretation Microscan [...] Sensitive SUSCEPTIBLE JESSICA Preliminary Testing performed at [facility], [address] [place] [address], [place] [address] Culture, Wound, Superficial [[id number]] Collected: 04/06/191545 Order Status: Completed Lab Status: Final result Updated: 04/08/1937 Specimen: Body Fluid from Heel, Right Special Requests RIGHT FOOT Special Requests Testing performed at [facility];[address] [place] [address]406 RESULT -- 1+ NORMAL SKIN CELSA ISOLATED RESULT NO FURTHER WORKUP RESULT Testing performed at [facility], [address] [place] [address]407 Comment: Testing performed at [facility], [address] [place] [address]39 Culture, Blood [[id number]] Collected: 04/06/19337 Order Status: Completed Lab Status: Preliminary result Updated: 04/07/19812 Specimen: Peripheral Blood Special Requests R WRIST Special Requests Testing performed at [facility];[address] [place] [address]27 RESULT NO GROWTH AT THIS TIME RESULT Testing performed at [facility], [address] [place] [address] Comment: Testing performed at [facility], [address] [place] [address] 17579 Culture, Blood [[id number]] Collected: 04/06/19330 Order Status: Completed Lab Status: Preliminary result Updated: 04/07/19812 Specimen: Peripheral Blood Special Requests L WRIST Special Requests Testing performed at [facility];[address] [place] [address] 98710 RESULT NO GROWTH AT THIS TIME RESULT Testing performed at [facility], [address] [place] [address] 26769 Comment: Testing performed at [facility], [address] [place] [address] Microbiology Results (72 hrs) No results found [...] this note might be different from the [facility] Service: Urology Progress Note Hospital Day: LOS: [...] of congestive failure. Signed by: Madison Solis [facility] Sign Date/Time: 04/09/2019 9:25 AM US Renal [...] essential h ypertension, insulin-dependent diabetes, history of SD, GERD, ischemic stroke, diffuse signi ficant peripheral [...] Lujan MD - 04/09/2019 6:21 PM PST [facility] Service: Urology Progress Note Hospital Day: LOS: 3 days Post-Op Day: * No surgery found * SUBJECTIVE Events Overnight: This 74-year-old gentleman with a known history of insulin-dependen t diabetes mellitus, advanced peripheral vascular disease, osteomyelitis of right foot, diab etic foot ulcers which are significant and advanced in both feet, left hemiparesis, essentia l hypertension, hyperkalemia, history of GERD and non-STEMI SD, history of bacteremia, histo ry of stroke. [...] Color, UA STRAW Clarity, UA CLEAR Specific Finley, Urine 1.006 1.002 - 1.030 Leukocyte esterase, [...] of congestive failure. Signed by: Madison Solis, [facility] Sign Date/Time: 04/09/2019 9:25 AM PROBLEM LIST [...] longstanding history of diabetes, hypertension, GERD, ac [place] left hemiparesis, essential hypertension and very advanced [...] this time. Continue current diet as Rx'd. Amriluz l follow progress/course and offer wound healing supplements as indicated when POC/GOC are k nown. Following with team. Nutritional Risk Required Follow Up: (L 04/16/2019) Radha Anaya RD 04/09/2019 5:14 PM Beatrice Wakefield PA-C - 04/09/2019 1:55 PM PSTFormatting of this note might be different from the [facility] Service: Vascular Surgery Progress Note SUBJECTIVE Patient Summary: 74 y.o. man with complex medical issues and LE ischemic ulcers, he wa s recently admitted to the [facility] from 03/28/19 to 04/04/19 where he was treated/ diagnosed with systolic heart failure, type 2 SD/NSTEMI, SHAE, ARF. O2 desaturation brought him from SNF to [facility] and current admission today with CHF and [...] will have him scheduled for 04/12/2019 at [facility] [employer] for his first leg, then will plan [...] Hospitalist Progress Note Reagan Shepard 74 y.o. [id number] male Jamar Manuel MD Hospital Day: LOS: 3 days Patient Summary: 74-year-old gentleman with past medical history of bilateral nonheali ng diabetic foot ulcer, and history of traumatic brain injury, stroke, diabetes mellitus typ e 2 insulin-dependent who was recently admitted to [facility] from 03/28/21 020 with acute hypoxic respiratory failure secondary to systolic CHF exacerbation with eject ion fraction of 40%, CTA chest negative for PE, troponin was minimally elevated 0.44 treated conservatively with medical therapy discharge to [facility] who went back to [facility] emergency department with worsening shortness of [...] 04/09/2019 1044 Gross per 24 hour Intake 63231 ml Output 9850 ml Net 856 ml [...] received 8 days of IV antibiotic at [facility] discharged home on on Augmentin readmitted on at [facility] and started on Rocephin after sending [...] might be different from the o riginal. [facility] Service: Podiatry Progress Note Hospital Day: LOS: 3 days Post-Op Day: * No surgery found * SUBJECTIVE Patient Summary: The patient is 74 y.o. male with significant cardiac and IDDM2 past medical history with recent admissions to [facility] where he was found to have el evated troponin level and he became decompensated and desaturated and was transferred to [facility] for a higher level [...] Ady Mata RN - 04/08/2019 9:49 PM [id number]: pt a/o to all, vss. cbi in [...] Hospitalist Progress Note Reagan Shepard 74 y.o. [id number] male Jamar Manuel MD Hospital Day: LOS: 2 days Patient Summary: 74-year-old gentleman with past medical history of bilateral nonheali ng diabetic foot ulcer, and history of traumatic brain injury, stroke, diabetes mellitus typ e 2 insulin-dependent who was recently admitted to [facility] from 03/28/21 020 with acute hypoxic respiratory failure secondary to systolic CHF exacerbation with eject ion fraction of 40%, CTA chest negative for PE, troponin was minimally elevated 0.44 treated conservatively with medical therapy discharge to [facility] who went back to [facility] emergency department with worsening shortness of [...] received 8 days of IV antibiotic at [facility] discharged home on on Augmentin readmitted on at [facility] and started on Rocephin after sending [...] might be different from th e original. [facility] Service: Cardiology Progress Note Hospital Day: LOS: [...] Nandini Barboza RN - 04/07/2019 10:48 PM [id number]: pt a/o to all, occasionally forgetful, vss. [...] Hospitalist Progress Note Reagan Shepard 74 y.o. [id number] male Jamar Manuel MD Hospital Day: LOS: 1 day Patient Summary: 74-year-old gentleman with past medical history of bilateral nonheali ng diabetic foot ulcer, and history of traumatic brain injury, stroke, diabetes mellitus typ e 2 insulin-dependent who was recently admitted to [facility] from 03/28/21 020 with acute hypoxic respiratory failure secondary to systolic CHF exacerbation with eject ion fraction of 40%, CTA chest negative for PE, troponin was minimally elevated 0.44 treated conservatively with medical therapy discharge to [facility] who went back to [facility] emergency department with worsening shortness of [...] received 8 days of IV antibiotic at [facility] discharged home on on Augmentin readmitted on at [facility] and started on Rocephin after sending [...] might be different from th e original. [facility] Service: Cardiology Progress Note Hospital Day: LOS: [...] Andrés Novoa RN - 04/06/2019 10:15 AM [facility] Service: Wound/Ostomy Care Progress Note [...] | | right foot ([facility]) | 04/20/2019 until | | | | | | 04/20/2020 | + +---------+--------+ + + | Comprehensive | Lab | Routin | Other | Weekly for 2 | | Metabolic Panel | | e | osteomyelitis of | Occurrences starting | | | | | right foot ([facility]) | 04/20/2019 until | | | | | | 04/20/2020 | + +---------+--------+ + + | C-Reactive Protein | Lab | Routin | Other | Weekly for 6 | | | | e | osteomyelitis of | Occurrences starting | | | | | right foot ([facility]) | 04/20/2019 until | | | | | | 04/20/2020 | + +---------+--------+ + + | Sedimentation Rate | Lab | Routin | Other | Weekly for 6 | | | | e | osteomyelitis of | Occurrences starting | | | | | right foot ([facility]) | 04/20/2019 until | | | [...] + + + | EDDIE ISABEL | AMRELY | 04/17/2019 | | Results for this [...] | | | | | PST | ([facility]) Peripheral | | | | | | vascular disease | | | | | | ([facility]) Other | | | | | | osteomyelitis of | | | | | | right foot ([facility]) | | | | | | Essential | | | | | | hypertension Acute | | | | | | left hemiparesis | | | | | | ([facility]) | | + +--------+ + + [...] | | | | | performed at [facility];[address] | | | | | | [facility] [address];[place], [place] | | | | | | [address] | | | | + + + + + + + + | Specimen | + + | Blood | + + + + + + + | Performing | Address | City/State/Zipcode | Phone Number | | Organization | | | | + + + + + | [facility] | [address] [facility] [address] | [place] [address] | [phone] | + + + + + POC [...] | | | POC | performed at [facility];[address] | | LABORATORY | | | | [address];[place], [place] | | | | | | [address] | | | | + + + + + + + + | Specimen | + + | | + + + + + + + | Performing | Address | City/State/Zipcode | Phone Number | | Organization | | | | + + + + + | [facility] | [address] | [place] [address] | [phone] | + + + + + POC [...] | | | POC | performed at [facility];[address] | | LABORATORY | | | | [address];[place] | | | | | | [address] | | | | + + + + + + + + | Specimen | + + | | + + + + + + + | Performing | Address | City/State/Zipcode | Phone Number | | Organization | | | | + + + + + | [facility] | [address] | [place] [address] | [phone] | + + + + + POC Glucose (04/21/2019 5:12 AM PST) + + + + + + | Component | Value | Ref Range | Performed | Pathologist | | | | | At | Signature | + + + + + + | Glucose, | 146 (H)Comment: Testing | 65 - 99 mg/dL | [facility] | | | POC | performed at [facility];[address] | | LABORATORY | | | | [address];[place], [place] | | | | | | [address] | | | | + + + + + + + + | Specimen | + + | | + + + + + + + | Performing | Address | City/State/Zipcode | Phone Number | | Organization | | | | + + + + + | [facility] | [address] | [place] [address] | [phone] | + + + + + POC [...] | | | POC | performed at [facility];[address] | | LABORATORY | | | | [address];[place] | | | | | | [address] | | | | + + + + + + + + | Specimen | + + | | + + + + + + + | Performing | Address | City/State/Zipcode | Phone Number | | Organization | | | | + + + + + | [facility] | [address] | [place] [address] | [phone] | + + + + + POC Glucose (04/20/2019 5:30 PM PST) + + + + + + | Component | Value | Ref Range | Performed | Pathologist | | | | | At | Signature | + + + + + + | Glucose, | 220 (H)Comment: Testing | 65 - 99 mg/dL | [facility] | | | POC | performed at [facility];[address] | | LABORATORY | | | | [address];[place] | | | | | | [address] | | | | + + + + + + + + | Specimen | + + | | + + + + + + + | Performing | Address | City/State/Zipcode | Phone Number | | Organization | | | | + + + + + | [facility] | [address] | [place] [address] | [phone] | + + + + + POC Glucose (04/20/2019 5:04 PM PST) + + + + + + | Component | Value | Ref Range | Performed | Pathologist | | | | | At | Signature | + + + + + + | Glucose, | 199 (H)Comment: Testing | 65 - 99 mg/dL | [facility] | | | POC | performed at [facility];[address] | | LABORATORY | | | | [address];[place] | | | | | | [address] | | | | + + + + + + + + | Specimen | + + | | + + + + + + + | Performing | Address | City/State/Zipcode | Phone Number | | Organization | | | | + + + + + | [facility] | [address] | [place] [address] | [phone] | + + + + + POC [...] | | | POC | performed at [facility];[address] | | LABORATORY | | | | [address];[place], [place] | | | | | | [address] | | | | + + + + + + + + | Specimen | + + | | + + + + + + + | Performing | Address | City/State/Zipcode | Phone Number | | Organization | | | | + + + + + | [facility] | [address] | [place] [address] | [phone] | + + + + + Vancomycin Level (04/20/2019 12:39 PM PST) + + + + + + | Component | Value | Ref Range | Performed | Pathologist | | | | | At | Signature | + + + + + + | Vancomycin | 18.3Comment: Testing | ug/mL | [facility] | | | Random, | performed at [facility];[address] | | LABORATORY | | | Serum | [address];[place] | | | | | | [address] | | | | + + + + + + + + | Specimen | + + | Blood | + + + + + + + | Performing | Address | City/State/Zipcode | Phone Number | | Organization | | | | + + + + + | [facility] | [address] | [place] [address] | [phone] | + + + + + POC Glucose (04/20/2019 8:58 AM PST) + + + + + + | Component | Value | Ref Range | Performed | Pathologist | | | | | At | Signature | + + + + + + | Glucose, | 244 (H)Comment: Testing | 65 - 99 mg/dL | [facility] | | | POC | performed at [facility];[address] | | LABORATORY | | | | [address];[place] | | | | | | [address] | | | | + + + + + + + + | Specimen | + + | | + + + + + + + | Performing | Address | City/State/Zipcode | Phone Number | | Organization | | | | + + + + + | [facility] | [address] | [place] [address] | [phone] | + + + + + POC Glucose (04/20/2019 8:16 AM PST) + + + + + + | Component | Value | Ref Range | Performed | Pathologist | | | | | At | Signature | + + + + + + | Glucose, | 300 (H)Comment: Testing | 65 - 99 mg/dL | [facility] | | | POC | performed at [facility];[address] | | LABORATORY | | | | [address];[place], [place] | | | | | | [address] | | | | + + + + + + + + | Specimen | + + | | + + + + + + + | Performing | Address | City/State/Zipcode | Phone Number | | Organization | | | | + + + + + | [facility] | [address] | [place] [address] | [phone] | + + + + + POC [...] | | | POC | performed at [facility];[address] | | LABORATORY | | | | [address];[place] | | | | | | [address] | | | | + + + + + + + + | Specimen | + + | | + + + + + + + | Performing | Address | City/State/Zipcode | Phone Number | | Organization | | | | + + + + + | [facility] | [address] | [place] [address] | [phone] | + + + + + POC [...] | | | POC | performed at [facility];[address] | | LABORATORY | | | | [address];[place], [place] | | | | | | [address] | | | | + + + + + + + + | Specimen | + + | | + + + + + + + | Performing | Address | City/State/Zipcode | Phone Number | | Organization | | | | + + + + + | [facility] | [address] | [place] [address] | [phone] | + + + + + POC Glucose (04/19/2019 12:44 PM PST) + + + + + + | Component | Value | Ref Range | Performed | Pathologist | | | | | At | Signature | + + + + + + | Glucose, | 209 (H)Comment: Testing | 65 - 99 mg/dL | [facility] | | | POC | performed at [facility];[address] | | LABORATORY | | | | [address];[place] | | | | | | [address] | | | | + + + + + + + + | Specimen | + + | | + + + + + + + | Performing | Address | City/State/Zipcode | Phone Number | | Organization | | | | + + + + + | [facility] | [address] | [place] [address] | [phone] | + + + + + POC Glucose (04/19/2019 8:13 AM PST) + + + + + + | Component | Value | Ref Range | Performed | Pathologist | | | | | At | Signature | + + + + + + | Glucose, | 176 (H)Comment: Testing | 65 - 99 mg/dL | [facility] | | | POC | performed at [facility];[address] | | LABORATORY | | | | [address];[place], [place] | | | | | | [address] | | | | + + + + + + + + | Specimen | + + | | + + + + + + + | Performing | Address | City/State/Zipcode | Phone Number | | Organization | | | | + + + + + | [facility] | [address] | [place] [address] | [phone] | + + + + + Basic [...] | | | | | performed at [facility], [address] | | | | | | [facility], | | | | | | [place] [address] | | | | + + + + + + + + | Specimen | + + | Blood | + + + + + + + | Performing | Address | City/State/Zipcode | Phone Number | | Organization | | | | + + + + + | [facility] | [address] | [place] [address] | [phone] | + + + + + CBC [...] | | | | | performed at [facility], [address] | | | | | | [facility], | | | | | | [place] [address] | | | | | |MICRO | | | | | |NORMAL PLT MORPH | | | | | |Testing performed at [facility], [address] [facility], [place] [address] | | | | | | | | | | + + +---- + + + + + | Specimen | + + | Blood | + + + + + + + | Performing | Address | City/State/Zipcode | Phone Number | | Organization | | | | + + + + + | [facility] | [address] | [place] [address] | [phone] | + + + + + POC [...] | | | POC | performed at [facility];[address] | | LABORATORY | | | | [address];[place] | | | | | | [address] | | | | + + + + + + + + | Specimen | + + | | + + + + + + + | Performing | Address | City/State/Zipcode | Phone Number | | Organization | | | | + + + + + | [facility] | [address] | [place] [address] | [phone] | + + + + + POC Glucose (04/18/2019 9:02 PM PST) + + + + + + | Component | Value | Ref Range | Performed | Pathologist | | | | | At | Signature | + + + + + + | Glucose, | 295 (H)Comment: Testing | 65 - 99 mg/dL | [facility] | | | POC | performed at [facility];[address] | | LABORATORY | | | | [address];[place] | | | | | | [address] | | | | + + + + + + + + | Specimen | + + | | + + + + + + + | Performing | Address | City/State/Zipcode | Phone Number | | Organization | | | | + + + + + | [facility] | [address] | [place] [address] | [phone] | + + + + + POC Glucose (04/18/2019 8:01 PM PST) + + + + + + | Component | Value | Ref Range | Performed | Pathologist | | | | | At | Signature | + + + + + + | Glucose, | 245 (H)Comment: Testing | 65 - 99 mg/dL | [facility] | | | POC | performed at [facility];[address] | | LABORATORY | | | | [address];[place] | | | | | | [address] | | | | + + + + + + + + | Specimen | + + | | + + + + + + + | Performing | Address | City/State/Zipcode | Phone Number | | Organization | | | | + + + + + | [facility] | [address] | [place] [address] | [phone] | + + + + + POC Glucose (04/18/2019 6:08 PM PST) + + + + + + | Component | Value | Ref Range | Performed | Pathologist | | | | | At | Signature | + + + + + + | Glucose, | 181 (H)Comment: Testing | 65 - 99 mg/dL | [facility] | | | POC | performed at [facility];[address] | | LABORATORY | | | | [address];[place], [place] | | | | | | [address] | | | | + + + + + + + + | Specimen | + + | | + + + + + + + | Performing | Address | City/State/Zipcode | Phone Number | | Organization | | | | + + + + + | [facility] | [address] | [place] [address] | [phone] | + + + + + POC [...] | | | POC | performed at [facility];[address] | | LABORATORY | | | | [address];[place], [place] | | | | | | [address] | | | | + + + + + + + + | Specimen | + + | | + + + + + + + | Performing | Address | City/State/Zipcode | Phone Number | | Organization | | | | + + + + + | [facility] | [address] | [place] [address] | [phone] | + + + + + NM [...] Testing | 65 - 99 mg/dL | [facility] | | | POC | performed at [facility];[address] | | LABORATORY | | | | [address];[place] | | | | | | [address] | | | | + + + + + + + + | Specimen | + + | | + + + + + + + | Performing | Address | City/State/Zipcode | Phone Number | | Organization | | | | + + + + + | [facility] | [address] | [place] [address] | [phone] | + + + + + Basic [...] | | | | | performed at [facility];[address] | | | | | | [address];[place], [place] | | | | | | [address] | | | | + + + + + + + + | Specimen | + + | Blood | + + + + + + + | Performing | Address | City/State/Zipcode | Phone Number | | Organization | | | | + + + + + | [facility] | [address] | [place] [address] | [phone] | + + + + + CBC [...] | | | Estimate | performed at [facility] | | LABORATORY | | | | [address];[place] | | | | | | [address] | | | | + + + + + + + + | Specimen | + + | Blood | + + + + + + + | Performing | Address | City/State/Zipcode | Phone Number | | Organization | | | | + + + + + | [facility] | [address] | [place] [address] | [phone] | + + + + + POC Glucose (04/17/2019 8:41 PM PST) + + + + + + | Component | Value | Ref Range | Performed | Pathologist | | | | | At | Signature | + + + + + + | Glucose, | 183 (H)Comment: Testing | 65 - 99 mg/dL | [facility] | | | POC | performed at [facility];[address] | | LABORATORY | | | | [address];[place], [place] | | | | | | [address] | | | | + + + + + + + + | Specimen | + + | | + + + + + + + | Performing | Address | City/State/Zipcode | Phone Number | | Organization | | | | + + + + + | [facility] | [address] | [place] [address] | [phone] | + + + + + POC [...] | | | POC | performed at [facility];[address] | | LABORATORY | | | | [address];[place] | | | | | | [address] | | | | + + + + + + + + | Specimen | + + | | + + + + + + + | Performing | Address | City/State/Zipcode | Phone Number | | Organization | | | | + + + + + | [facility] | [address] | [place] [address] | [phone] | + + + + + Vancomycin, Trough (04/17/2019 12:30 PM PST) + + + + + + | Component | Value | Ref Range | Performed | Pathologist | | | | | At | Signature | + + + + + + | Vancomycin, | 17.2Comment: 15 to 20 | 10 - 20 ug/mL | [facility] | | | Trough | [...] | | | | | performed at [facility];[address] | | | | | | [address];[place] | | | | | | [address] | | | | + + + + + + + + | Specimen | + + | Blood | + + + + + + + | Performing | Address | City/State/Zipcode | Phone Number | | Organization | | | | + + + + + | [facility] | [address] | [place] [address] | [phone] | + + + + + POC [...] | | | POC | performed at [facility];[address] | | LABORATORY | | | | [address];[place] | | | | | | [address] | | | | + + + + + + + + | Specimen | + + | | + + + + + + + | Performing | Address | City/State/Zipcode | Phone Number | | Organization | | | | + + + + + | [facility] | [address] | [place] [address] | [phone] | + + + + + POC [...] | | | POC | performed at [facility];[address] | | LABORATORY | | | | [address];[place] | | | | | | [address] | | | | + + + + + + + + | Specimen | + + | | + + + + + + + | Performing | Address | City/State/Zipcode | Phone Number | | Organization | | | | + + + + + | [facility] | [address] | [place] [address] | [phone] | + + + + + POC [...] | | | POC | performed at [facility];[address] | | LABORATORY | | | | [address];[place], [place] | | | | | | [address] | | | | + + + + + + + + | Specimen | + + | | + + + + + + + | Performing | Address | City/State/Zipcode | Phone Number | | Organization | | | | + + + + + | [facility] | [address] | [place] [address] | [phone] | + + + + + Basic [...] | | | | | performed at [facility], [address] | | | | | | [facility], | | | | | | [place] [address] | | | | + + + + + + + + | Specimen | + + | Blood | + + + + + + + | Performing | Address | City/State/Zipcode | Phone Number | | Organization | | | | + + + + + | [facility] | [address] | [place] [address] | [phone] | + + + + + CBC [...] | | | | | performed at [facility], [address] | | | | | | [facility], | | | | | | [place] [address] | | | | | |MICRO | | | | | |NORMAL PLT MORPH | | | | | |Testing performed at [facility], [address] [facility], [place] [address] | | | | | | | | | | + + +---- + + + + + | Specimen | + + | Blood | + + + + + + + | Performing | Address | City/State/Zipcode | Phone Number | | Organization | | | | + + + + + | [facility] | [address] | [place] [address] | [phone] | + + + + + POC Glucose (04/16/2019 8:57 PM PST) + + + + + + | Component | Value | Ref Range | Performed | Pathologist | | | | | At | Signature | + + + + + + | Glucose, | 96Comment: Testing | 65 - 99 mg/dL | [facility] | | | POC | performed at [facility];888 | | LABORATORY | | | | [address];[place] | | | | | | [address] | | | | + + + + + + + + | Specimen | + + | | + + + + + + + | Performing | Address | City/State/Zipcode | Phone Number | | Organization | | | | + + + + + | [facility] | [address] | [place] [address] | [phone] | + + + + + POC Glucose (04/16/2019 4:39 PM PST) + + + + + + | Component | Value | Ref Range | Performed | Pathologist | | | | | At | Signature | + + + + + + | Glucose, | 192 (H)Comment: Testing | 65 - 99 mg/dL | [facility] | | | POC | performed at [facility];[address] | | LABORATORY | | | | [address];[place], [place] | | | | | | [address] | | | | + + + + + + + + | Specimen | + + | | + + + + + + + | Performing | Address | City/State/Zipcode | Phone Number | | Organization | | | | + + + + + | [facility] | [address] | [place] [address] | [phone] | + + + + + POC [...] | | | POC | performed at [facility];[address] | | LABORATORY | | | | [address];[place], [place] | | | | | | [address] | | | | + + + + + + + + | Specimen | + + | | + + + + + + + | Performing | Address | City/State/Zipcode | Phone Number | | Organization | | | | + + + + + | [facility] | [address] | [place] [address] | [phone] | + + + + + POC Glucose (04/16/2019 7:36 AM PST) + + + + + + | Component | Value | Ref Range | Performed | Pathologist | | | | | At | Signature | + + + + + + | Glucose, | 100 (H)Comment: Testing | 65 - 99 mg/dL | [facility] | | | POC | performed at [facility];[address] | | LABORATORY | | | | [address];[place], [place] | | | | | | [address] | | | | + + + + + + + + | Specimen | + + | | + + + + + + + | Performing | Address | City/State/Zipcode | Phone Number | | Organization | | | | + + + + + | [facility] | [address] | [place] [address] | [phone] | + + + + + CBC [...] | | | | | performed at [facility], [address] | | | | | | [facility], | | | | | | [place] [address] | | | | | |MICRO | | | | | |NORMAL PLT MORPH | | | | | |Testing performed at [facility], [address] [place] [address] | | | | | | | | | | + + +---- + + + + + | Specimen | + + | Blood | + + + + + + + | Performing | Address | City/State/Zipcode | Phone Number | | Organization | | | | + + + + + | [facility] | [address] | [place] [address] | [phone] | + + + + + Basic [...] | >60Comment: GFR <60: | >60 | [facility] | | | GFR | [...] | | | | | performed at [facility], [address] | | | | | | [facility], | | | | | | [place] [address] | | | | + + + + + + + + | Specimen | + + | Blood | + + + + + + + | Performing | Address | City/State/Zipcode | Phone Number | | Organization | | | | + + + + + | [facility] | [address] | [place] [address] | [phone] | + + + + + POC [...] | | | POC | performed at [facility];[address] | | LABORATORY | | | | [address];[place] | | | | | | [address] | | | | + + + + + + + + | Specimen | + + | | + + + + + + + | Performing | Address | City/State/Zipcode | Phone Number | | Organization | | | | + + + + + | [facility] | [address] | [place] [address] | [phone] | + + + + + POC Glucose (04/15/2019 4:51 PM PST) + + + + + + | Component | Value | Ref Range | Performed | Pathologist | | | | | At | Signature | + + + + + + | Glucose, | 239 (H)Comment: Testing | 65 - 99 mg/dL | [facility] | | | POC | performed at [facility];[address] | | LABORATORY | | | | [address];[place] | | | | | | [address] | | | | + + + + + + + + | Specimen | + + | | + + + + + + + | Performing | Address | City/State/Zipcode | Phone Number | | Organization | | | | + + + + + | [facility] | [address] | [place] [address] | [phone] | + + + + + POC [...] | | | POC | performed at [facility];[address] | | LABORATORY | | | | [address];[place], [place] | | | | | | [address] | | | | + + + + + + + + | Specimen | + + | | + + + + + + + | Performing | Address | City/State/Zipcode | Phone Number | | Organization | | | | + + + + + | [facility] | [address] | [place] [address] | [phone] | + + + + + Type [...] + + + | BB BAND | [id number] | | [facility] | | | | | | LABORATORY | | + + + + + + | UNIT # | [id number] | | [facility] | | | | [...] + + + | UNIT # | [id number] | | [facility] | | | | [...] + + + | UNIT # | [id number] | | [facility] | | | | [...] | | | RESULT | performed at [facility];[address] | | LABORATORY | | | | [address];[place], [place] | | | | | | [address] | | | | + + + + + + + + | Specimen | + + | Blood | + + + + + + + | Performing | Address | City/State/Zipcode | Phone Number | | Organization | | | | + + + + + | [facility] | [address] | [place] [address] | [phone] | + + + + + Red [...] | [facility] | | | COMMENT | [facility];[address] | | LABORATORY | | | | [address];[place] [address] | | | | + + + + + + + + | Specimen | + + | | + + + + + + + | Performing | Address | City/State/Zipcode | Phone Number | | Organization | | | | + + + + + | [facility] | [address] | [place] [address] | [phone] | + + + + + POC Glucose (04/15/2019 9:11 AM PST) + + + + + + | Component | Value | Ref Range | Performed | Pathologist | | | | | At | Signature | + + + + + + | Glucose, | 165 (H)Comment: Testing | 65 - 99 mg/dL | [facility] | | | POC | performed at [facility];[address] | | LABORATORY | | | | [address];[place] | | | | | | [address] | | | | + + + + + + + + | Specimen | + + | | + + + + + + + | Performing | Address | City/State/Zipcode | Phone Number | | Organization | | | | + + + + + | [facility] | [address] | [place] [address] | [phone] | + + + + + Vancomycin, [...] | | | | | performed at [facility];[address] | | | | | | [address];[place], [place] | | | | | | [address] | | | | + + + + + + + + | Specimen | + + | Blood | + + + + + + + | Performing | Address | City/State/Zipcode | Phone Number | | Organization | | | | + + + + + | [facility] | [address] | [place] [address] | [phone] | + + + + + CBC [...] | | | Estimate | performed at [facility];[address] | | LABORATORY | | | | [address];[place] | | | | | | [address] | | | | + + + + + + + + | Specimen | + + | Blood | + + + + + + + | Performing | Address | City/State/Zipcode | Phone Number | | Organization | | | | + + + + + | [facility] | [address] | [place] [address] | [phone] | + + + + + Basic [...] | | | | | performed at [facility];[address] | | | | | | [facility];[place], [place] | | | | | | [address] | | | | + + + + + + + + | Specimen | + + | Blood | + + + + + + + | Performing | Address | City/State/Zipcode | Phone Number | | Organization | | | | + + + + + | [facility] | [address] | [place] [address] | [phone] | + + + + + POC [...] | | | POC | performed at [facility];[address] | | LABORATORY | | | | [address];[place], [place] | | | | | | [address] | | | | + + + + + + + + | Specimen | + + | | + + + + + + + | Performing | Address | City/State/Zipcode | Phone Number | | Organization | | | | + + + + + | [facility] | [address] | [place] [address] | [phone] | + + + + + POC Glucose (04/14/2019 4:58 PM PST) + + + + + + | Component | Value | Ref Range | Performed | Pathologist | | | | | At | Signature | + + + + + + | Glucose, | 175 (H)Comment: Testing | 65 - 99 mg/dL | [facility] | | | POC | performed at [facility];[address] | | LABORATORY | | | | [address];[place], [place] | | | | | | [address] | | | | + + + + + + + + | Specimen | + + | | + + + + + + + | Performing | Address | City/State/Zipcode | Phone Number | | Organization | | | | + + + + + | [facility] | [address] | [place] [address] | [phone] | + + + + + POC Glucose (04/14/2019 11:43 AM PST) + + + + + + | Component | Value | Ref Range | Performed | Pathologist | | | | | At | Signature | + + + + + + | Glucose, | 153 (H)Comment: Testing | 65 - 99 mg/dL | [facility] | | | POC | performed at [facility];[address] | | LABORATORY | | | | [address];[place] | | | | | | [address] | | | | + + + + + + + + | Specimen | + + | | + + + + + + + | Performing | Address | City/State/Zipcode | Phone Number | | Organization | | | | + + + + + | [facility] | [address] | [place] [address] | [phone] | + + + + + ECHO [...] Testing | 65 - 99 mg/dL | [facility] | | | POC | performed at [facility];[address] | | LABORATORY | | | | [address];[place] | | | | | | [address] | | | | + + + + + + + + | Specimen | + + | | + + + + + + + | Performing | Address | City/State/Zipcode | Phone Number | | Organization | | | | + + + + + | [facility] | [address] | [place] [address] | [phone] | + + + + + B [...] | | LABORATORY | | | | [facility];[address] [facility] | | | | | | Blvd;[place] [address] | | | | + + + + + + + + | Specimen | + + | | + + + + + + + | Performing | Address | City/State/Zipcode | Phone Number | | Organization | | | | + + + + + | [facility] | [address] | [place] [address] | [phone] | + + + + + CBC [...] | | | Estimate | performed at [facility];[address] | | LABORATORY | | | | [address];[place] | | | | | | [address] | | | | + + + + + + + + | Specimen | + + | | + + + + + + + | Performing | Address | City/State/Zipcode | Phone Number | | Organization | | | | + + + + + | [facility] | [address] | [place] [address] | [phone] | + + + + + Troponin I (04/14/2019 6:29 AM PST) + + + + + + | Component | Value | Ref Range | Performed | Pathologist | | | | | At | Signature | + + + + + + | Troponin I | 0.014Comment: 0.04 | 0.00 - 0.04 | [facility] | | | | ng/mL [...] at | | | | | | [facility];[address] [place] [address] | | | | | | Bl;[place] [address] | | | | + + + + + + + + | Specimen | + + | Blood | + + + + + + + | Performing | Address | City/State/Zipcode | Phone Number | | Organization | | | | + + + + + | [facility] | [address] | [place] [address] | [phone] | + + + + + Basic [...] | | | | | performed at [facility];[address] | | | | | | [address];[place], [place] | | | | | | [address] | | | | + + + + + + + + | Specimen | + + | Blood | + + + + + + + | Performing | Address | City/State/Zipcode | Phone Number | | Organization | | | | + + + + + | [facility] | [address] | [place] [address] | [phone] | + + + + + Vancomycin Level (04/14/2019 4:53 AM PST) + + + + + + | Component | Value | Ref Range | Performed | Pathologist | | | | | At | Signature | + + + + + + | Vancomycin | 20.6Comment: Testing | ug/mL | [facility] | | | Random, | performed at [facility];[address] | | LABORATORY | | | Serum | [address];[place] | | | | | | [address] | | | | + + + + + + + + | Specimen | + + | Blood | + + + + + + + | Performing | Address | City/State/Zipcode | Phone Number | | Organization | | | | + + + + + | [facility] | [address] | [place] [address] | [phone] | + + + + + POC [...] | | | POC | performed at [facility];[address] | | LABORATORY | | | | [address];[place], [place] | | | | | | [address] | | | | + + + + + + + + | Specimen | + + | | + + + + + + + | Performing | Address | City/State/Zipcode | Phone Number | | Organization | | | | + + + + + | [facility] | [address] | [place] [address] | [phone] | + + + + + Troponin I (04/14/2019 1:19 AM PST) + + + + + + | Component | Value | Ref Range | Performed | Pathologist | | | | | At | Signature | + + + + + + | Troponin I | 0.015Comment: 0.04 | 0.00 - 0.04 | [facility] | | | | ng/mL [...] at | | | | | | [facility];[address] [facility] | | | | | | [facility];[place] [address] | | | | + + + + + + + + | Specimen | + + | Blood | + + + + + + + | Performing | Address | City/State/Zipcode | Phone Number | | Organization | | | | + + + + + | [facility] | [address] | [place] [address] | [phone] | + + + + + ECG [...] | | | POC | performed at [facility];[address] | | LABORATORY | | | | [address];[place], [place] | | | | | | [address] | | | | + + + + + + + + | Specimen | + + | | + + + + + + + | Performing | Address | City/State/Zipcode | Phone Number | | Organization | | | | + + + + + | [facility] | [address] | [place] [address] | [phone] | + + + + + POC Glucose (04/13/2019 4:19 PM PST) + + + + + + | Component | Value | Ref Range | Performed | Pathologist | | | | | At | Signature | + + + + + + | Glucose, | 109 (H)Comment: Testing | 65 - 99 mg/dL | [facility] | | | POC | performed at [facility];[address] | | LABORATORY | | | | [address];[place] | | | | | | [address] | | | | + + + + + + + + | Specimen | + + | | + + + + + + + | Performing | Address | City/State/Zipcode | Phone Number | | Organization | | | | + + + + + | [facility] | [address] | [place] [address] | [phone] | + + + + + XR [...] catheterization with right leg runoff4. Right SFA BUNGHOLE BORER | | | crossing and atherectomy using Bard 14 S crossing catheter SURGEON: | | | Simba Cheng MD COMMUNITY PLANNING TECHNICIAN: None ANESTHESIA: Moderate sedation and local | [...] | | identified and brought to the Caramel Cutter Hand. The patient was placed supine | | [...] sized to a 4 | | | Croatian sheath. A Omni flush catheter was then [...] inserted over the catheter and the 4 Croatian sheath was | | | removed. A 7 Croatian destination sheath was then inserted over the [...] | | | POC | performed at [facility];[address] | | LABORATORY | | | | [address];[place] | | | | | | [address] | | | | + + + + + + + + | Specimen | + + | | + + + + + + + | Performing | Address | City/State/Zipcode | Phone Number | | Organization | | | | + + + + + | [facility] | [address] | [place] [address] | [phone] | + + + + + POC Glucose (04/13/2019 7:59 AM PST) + + + + + + | Component | Value | Ref Range | Performed | Pathologist | | | | | At | Signature | + + + + + + | Glucose, | 124 (H)Comment: Testing | 65 - 99 mg/dL | [facility] | | | POC | performed at [facility];[address] | | LABORATORY | | | | [address];[place] | | | | | | [address] | | | | + + + + + + + + | Specimen | + + | | + + + + + + + | Performing | Address | City/State/Zipcode | Phone Number | | Organization | | | | + + + + + | [facility] | [address] | [place] [address] | [phone] | + + + + + Basic [...] 8.2 (L) | 8.5 - 10.5 | [facility] | | | | | mg/dL | LABORATORY | | + + + + + + | Estimated | >60Comment: GFR <60: | >60 | [facility] | | | GFR | [...] W | | | | | | [facility], | | | | | | [place] [address] | | | | + + + + + + + + | Specimen | + + | Blood | + + + + + + + | Performing | Address | City/State/Zipcode | Phone Number | | Organization | | | | + + + + + | [facility] | [address] | [place] [address] | [phone] | + + + + + CBC [...] | | | | | performed at [facility], [address] | | | | | | [facility], | | | | | | [place] [address] | | | | | |MICRO | | | | | |NORMAL PLT MORPH | | | | | |Testing performed at [facility], [address] [facility], [place] [address] | | | | | | | | | | + + +---- + + + + + | Specimen | + + | Blood | + + + + + + + | Performing | Address | City/State/Zipcode | Phone Number | | Organization | | | | + + + + + | [facility] | [address] | [place] [address] | [phone] | + + + + + POC [...] | | | POC | performed at [facility];[address] | | LABORATORY | | | | [address];[place], [place] | | | | | | [address] | | | | + + + + + + + + | Specimen | + + | | + + + + + + + | Performing | Address | City/State/Zipcode | Phone Number | | Organization | | | | + + + + + | [facility] | [address] | [place] [address] | [phone] | + + + + + POC Glucose (04/12/2019 9:14 PM PST) + + + + + + | Component | Value | Ref Range | Performed | Pathologist | | | | | At | Signature | + + + + + + | Glucose, | 183 (H)Comment: Testing | 65 - 99 mg/dL | [facility] | | | POC | performed at [facility];[address] | | LABORATORY | | | | [address];[place] | | | | | | [address] | | | | + + + + + + + + | Specimen | + + | | + + + + + + + | Performing | Address | City/State/Zipcode | Phone Number | | Organization | | | | + + + + + | [facility] | [address] | [place] [address] | [phone] | + + + + + POC Glucose (04/12/2019 4:28 PM PST) + + + + + + | Component | Value | Ref Range | Performed | Pathologist | | | | | At | Signature | + + + + + + | Glucose, | 211 (H)Comment: Testing | 65 - 99 mg/dL | [facility] | | | POC | performed at [facility];[address] | | LABORATORY | | | | [address];[place] | | | | | | [address] | | | | + + + + + + + + | Specimen | + + | | + + + + + + + | Performing | Address | City/State/Zipcode | Phone Number | | Organization | | | | + + + + + | [facility] | [address] | [place] [address] | [phone] | + + + + + POC [...] | | | POC | performed at [facility];[address] | | LABORATORY | | | | [address];[place] | | | | | | [address] | | | | + + + + + + + + | Specimen | + + | | + + + + + + + | Performing | Address | City/State/Zipcode | Phone Number | | Organization | | | | + + + + + | [facility] | [address] | [place] [address] | [phone] | + + + + + POC [...] | | | POC | performed at [facility];[address] | | LABORATORY | | | | [address];[place] | | | | | | [address] | | | | + + + + + + + + | Specimen | + + | | + + + + + + + | Performing | Address | City/State/Zipcode | Phone Number | | Organization | | | | + + + + + | [facility] | [address] [facility] | [place] [address] | [phone] | + + + + + Basic [...] | | | | | performed at [facility], [address] | | | | | | [facility], | | | | | | [place] [address] | | | | + + + + + + + + | Specimen | + + | Blood | + + + + + + + | Performing | Address | City/State/Zipcode | Phone Number | | Organization | | | | + + + + + | [facility] | [address] | [place] [address] | [phone] | + + + + + CBC [...] | | | | | performed at [facility], [address] | | | | | | [facility], | | | | | | [place] [address] | | | | | |MICRO | | | | | |NORMAL PLT MORPH | | | | | |Testing performed at [facility], [address] [facility], [place] [address] | | | | | | | | | | + + +---- + + + + + | Specimen | + + | Blood | + + + + + + + | Performing | Address | City/State/Zipcode | Phone Number | | Organization | | | | + + + + + | [facility] | [address] | [place] [address] | [phone] | + + + + + POC Glucose (04/11/2019 9:20 PM PST) + + + + + + | Component | Value | Ref Range | Performed | Pathologist | | | | | At | Signature | + + + + + + | Glucose, | 199 (H)Comment: Testing | 65 - 99 mg/dL | [facility] | | | POC | performed at [facility];[address] | | LABORATORY | | | | [address];[place] | | | | | | [address] | | | | + + + + + + + + | Specimen | + + | | + + + + + + + | Performing | Address | City/State/Zipcode | Phone Number | | Organization | | | | + + + + + | [facility] | [address] | [place] [address] | [phone] | + + + + + POC [...] | | | POC | performed at [facility];[address] | | LABORATORY | | | | [address];[place], [place] | | | | | | [address] | | | | + + + + + + + + | Specimen | + + | | + + + + + + + | Performing | Address | City/State/Zipcode | Phone Number | | Organization | | | | + + + + + | [facility] | [address] | [place] [address] | [phone] | + + + + + POC [...] | | | POC | performed at [facility];[address] | | LABORATORY | | | | [address];[place], [place] | | | | | | [address] | | | | + + + + + + + + | Specimen | + + | | + + + + + + + | Performing | Address | City/State/Zipcode | Phone Number | | Organization | | | | + + + + + | [facility] | [address] | [place] [address] | [phone] | + + + + + IR [...] x 150 mm | | | angioplasty [id number]. Left SFA stenting using 7 x 120 mm | | | self-expanding stent SURGEON: Simba Cheng MD COMMUNITY PLANNING TECHNICIAN: None ANESTHESIA: | | | Moderate sedation [...] | | identified and brought to the Caramel Cutter Hand. The patient was placed supine | | [...] sized to a 4 | | | [place] sheath. A Omni flush catheter was then [...] inserted over the catheter and the 4 [place] sheath was | | | removed. A 7 [place] destination sheath was then inserted over the [...] using a | | | Glidewire and [place] catheter. A 0.009 wire was then passed [...] crossed using a | | |Glidewire and [place] catheter. A 0.009 wire was then passed [...] Testing | 65 - 99 mg/dL | [facility] | | | POC | performed at [facility];[address] | | LABORATORY | | | | [address];[place] | | | | | | [address] | | | | + + + + + + + + | Specimen | + + | | + + + + + + + | Performing | Address | City/State/Zipcode | Phone Number | | Organization | | | | + + + + + | [facility] | [address] | [place] [address] | [phone] | + + + + + B Type Natriuretic Peptide (04/11/2019 5:48 AM PST) + + + + + + | Component | Value | Ref Range | Performed | Pathologist | | | | | At | Signature | + + + + + + | BNP | 220.45 (H)Comment: | 0 - 100 pg/mL | [facility] | | | | Testing performed at | | LABORATORY | | | | [facility];[address] | | | [address];[place] [address] | | | | + + + + + + + + | Specimen | + + | Blood | + + + + + + + | Performing | Address | City/State/Zipcode | Phone Number | | Organization | | | | + + + + + | [facility] | [address] | [place] [address] | [phone] | + + + + + Basic [...] | >60Comment: GFR <60: | >60 | [facility] | | | GFR | [...] | | | | | performed at [facility], [address] | | | | | | [facility], | | | | | | [place] [address] | | | | + + + + + + + + | Specimen | + + | Blood | + + + + + + + | Performing | Address | City/State/Zipcode | Phone Number | | Organization | | | | + + + + + | [facility] | [address] | [place] [address] | [phone] | + + + + + CBC [...] | | | | | | at [facility], [address] | | | | | | [address], | | | | | | [place] [address] | | | | | |Testing performed at [facility], [address] [place] [address] | | | | | | | | | | + + +---- + + + + + | Specimen | + + | Blood | + + + + + + + | Performing | Address | City/State/Zipcode | Phone Number | | Organization | | | | + + + + + | [facility] | [address] | [place] [address] | [phone] | + + + + + POC Glucose (04/10/2019 9:22 PM PST) + + + + + + | Component | Value | Ref Range | Performed | Pathologist | | | | | At | Signature | + + + + + + | Glucose, | 127 (H)Comment: Testing | 65 - 99 mg/dL | [facility] | | | POC | performed at [facility];[address] | | LABORATORY | | | | [address];[place] | | | | | | [address] | | | | + + + + + + + + | Specimen | + + | | + + + + + + + | Performing | Address | City/State/Zipcode | Phone Number | | Organization | | | | + + + + + | [facility] | [address] | [place] [address] | [phone] | + + + + + POC [...] | | | POC | performed at [facility];[address] | | LABORATORY | | | | [address];[place] | | | | | | [address] | | | | + + + + + + + + | Specimen | + + | | + + + + + + + | Performing | Address | City/State/Zipcode | Phone Number | | Organization | | | | + + + + + | [facility] | [address] | [place] [address] | [phone] | + + + + + [place] [...] | | | POC | performed at [facility];[address] | | LABORATORY | | | | [address];[place] | | | | | | [address] | | | | + + + + + + + + | Specimen | + + | | + + + + + + + | Performing | Address | City/State/Zipcode | Phone Number | | Organization | | | | + + + + + | [facility] | [address] | [place] [address] | [phone] | + + + + + CBC [...] [facility] | | | | performed at [facility], [address] | | LABORATORY | | | | [address], | | | | | | [place] [address] | | | | + + + + + + + + | Specimen | + + | Blood | + + + + + + + | Performing | Address | City/State/Zipcode | Phone Number | | Organization | | | | + + + + + | [facility] | [address] | [place] [address] | [phone] | + + + + + POC [...] | | | POC | performed at [facility];[address] | | LABORATORY | | | | [address];[place] | | | | | | [address] | | | | + + + + + + + + | Specimen | + + | | + + + + + + + | Performing | Address | City/State/Zipcode | Phone Number | | Organization | | | | + + + + + | [facility] | [address] | [place] [address] | [phone] | + + + + + POC Glucose (04/09/2019 5:06 PM PST) + + + + + + | Component | Value | Ref Range | Performed | Pathologist | | | | | At | Signature | + + + + + + | Glucose, | 169 (H)Comment: Testing | 65 - 99 mg/dL | [facility] | | | POC | performed at [facility];[address] | | LABORATORY | | | | [address];[place] | | | | | | [address] | | | | + + + + + + + + | Specimen | + + | | + + + + + + + | Performing | Address | City/State/Zipcode | Phone Number | | Organization | | | | + + + + + | [facility] | [address] | [place] [address] | [phone] | + + + + + POC [...] | | | POC | performed at [facility];[address] | | LABORATORY | | | | [address];[place] | | | | | | [address] | | | | + + + + + + + + | Specimen | + + | | + + + + + + + | Performing | Address | City/State/Zipcode | Phone Number | | Organization | | | | + + + + + | [facility] | [address] | [place] [address] | [phone] | + + + + + XR [...] | | | Urine | performed at [facility], [address] | | LABORATORY | | | | [address], | | | | | | [place] [address] | | | | + + + + + + + + | Specimen | + + | | + + + + + + + | Performing | Address | City/State/Zipcode | Phone Number | | Organization | | | | + + + + + | [facility] | [address] | [place] [address] | [phone] | + + + + + Urinalysis, [...] - 1.030 | [facility] | | | [place], | | | LABORATORY | | | [...] | + + + + + | [facility] | [address] | [place] [address] | [phone] | + + + + + Sedimentation Rate (04/09/2019 6:16 AM PST) + + + + + + | Component | Value | Ref Range | Performed | Pathologist | | | | | At | Signature | + + + + + + | ESR | 91 (H)Comment: Testing | 0 - 20 mm/Hr | [facility] | | | | performed at [facility], [address] | | LABORATORY | | | | [address], | | | | | | [place] [address] | | | | + + + + + + + + | Specimen | + + | Blood | + + + + + + + | Performing | Address | City/State/Zipcode | Phone Number | | Organization | | | | + + + + + | [facility] | [address] | [place] [address] | [phone] | + + + + + CBC [...] [facility] | | | | performed at [facility], [address] | | LABORATORY | | | | [facility], | | | | | | [place] [address] | | | | + + + + + + + + | Specimen | + + | Blood | + + + + + + + | Performing | Address | City/State/Zipcode | Phone Number | | Organization | | | | + + + + + | [facility] | [address] | [place] [address] | [phone] | + + + + + Comprehensive [...] | | | | | performed at [facility], [address] | | | | | | [facility], | | | | | | [place] [address] | | | | + + + + + + + + | Specimen | + + | Blood | + + + + + + + | Performing | Address | City/State/Zipcode | Phone Number | | Organization | | | | + + + + + | [facility] | [address] | [place] [address] | [phone] | + + + + + POC Glucose (04/08/2019 10:09 PM PST) + + + + + + | Component | Value | Ref Range | Performed | Pathologist | | | | | At | Signature | + + + + + + | Glucose, | 168 (H)Comment: Testing | 65 - 99 mg/dL | [facility] | | | POC | performed at [facility];[address] | | LABORATORY | | | | [address];[place] | | | | | | [address] | | | | + + + + + + + + | Specimen | + + | | + + + + + + + | Performing | Address | City/State/Zipcode | Phone Number | | Organization | | | | + + + + + | [facility] | [address] | [place] [address] | [phone] | + + + + + Fecal Hemoglobin (04/08/2019 7:27 PM PST) + + + + + + | Component | Value | Ref Range | Performed | Pathologist | | | | | At | Signature | + + + + + + | FECAL | NEGATIVEComment: Testing | NEG | [facility] | | | OCCULT BLD | performed at [facility];[address] | | LABORATORY | | | | [address];[place], [place] | | | | | | [address] | | | | + + + + + + + + | Specimen | + + | Stool - Stool | | specimen (specimen) | + + + + + + + | Performing | Address | City/State/Zipcode | Phone Number | | Organization | | | | + + + + + | [facility] | [address] | [place] [address] | [phone] | + + + + + POC [...] | | | POC | performed at [facility];[address] | | LABORATORY | | | | [address];[place] | | | | | | [address] | | | | + + + + + + + + | Specimen | + + | | + + + + + + + | Performing | Address | City/State/Zipcode | Phone Number | | Organization | | | | + + + + + | [facility] | [address] | [place] [address] | [phone] | + + + + + XR [...] | | | POC | performed at [facility];[address] | | LABORATORY | | | | [address];[place] | | | | | | [address] | | | | + + + + + + + + | Specimen | + + | | + + + + + + + | Performing | Address | City/State/Zipcode | Phone Number | | Organization | | | | + + + + + | [facility] | [address] | [place] [address] | [phone] | + + + + + XR [...] Testing | 65 - 99 mg/dL | [facility] | | | POC | performed at [facility];[address] | | LABORATORY | | | | [address];[place] | | | | | | [address] | | | | + + + + + + + + | Specimen | + + | | + + + + + + + | Performing | Address | City/State/Zipcode | Phone Number | | Organization | | | | + + + + + | [facility] | [address] | [place] [address] | [phone] | + + + + + B [...] [address] | | | | | [address];[place] [address] | | | | + + + + + + + + | Specimen | + + | Blood | + + + + + + + | Performing | Address | City/State/Zipcode | Phone Number | | Organization | | | | + + + + + | [facility] | [address] | [place] [address] | [phone] | + + + + + CBC [...] | | | | | [place] [address] | | | | + + + + + + + + | Specimen | + + | Blood | + + + + + + + | Performing | Address | City/State/Zipcode | Phone Number | | Organization | | | | + + + + + | [facility] | [address] | [place] [address] | [phone] | + + + + + Comprehensive [...] | | | | | performed at [facility], [address] | | | | | | [facility], | | | | | | [place] [address] | | | | + + + + + + + + | Specimen | + + | Blood | + + + + + + + | Performing | Address | City/State/Zipcode | Phone Number | | Organization | | | | + + + + + | [facility] | [address] | [place] [address] | [phone] | + + + + + POC [...] | | | POC | performed at [facility];[address] | | LABORATORY | | | | [address];[place] | | | | | | [address] | | | | + + + + + + + + | Specimen | + + | | + + + + + + + | Performing | Address | City/State/Zipcode | Phone Number | | Organization | | | | + + + + + | [facility] | [address] [facility] | [place] [address] | [phone] | + + + + + POC [...] | | | POC | performed at [facility];[address] | | LABORATORY | | | | [address];[place] | | | | | | [address] | | | | + + + + + + + + | Specimen | + + | | + + + + + + + | Performing | Address | City/State/Zipcode | Phone Number | | Organization | | | | + + + + + | [facility] | [address] | [place] [address] | [phone] | + + + + + POC Glucose (04/07/2019 12:40 PM PST) + + + + + + | Component | Value | Ref Range | Performed | Pathologist | | | | | At | Signature | + + + + + + | Glucose, | 252 (H)Comment: Testing | 65 - 99 mg/dL | [facility] | | | POC | performed at [facility];[address] | | LABORATORY | | | | [address];[place] | | | | | | [address] | | | | + + + + + + + + | Specimen | + + | | + + + + + + + | Performing | Address | City/State/Zipcode | Phone Number | | Organization | | | | + + + + + | [facility] | [address] | [place] [address] | [phone] | + + + + + XR [...] | | | POC | performed at [facility];[address] | | LABORATORY | | | | [address];[place] | | | | | | [address] | | | | + + + + + + + + | Specimen | + + | | + + + + + + + | Performing | Address | City/State/Zipcode | Phone Number | | Organization | | | | + + + + + | [facility] | [address] | [place] [address] | [phone] | + + + + + Magnesium (04/07/2019 5:02 AM PST) + + + + + + | Component | Value | Ref Range | Performed | Pathologist | | | | | At | Signature | + + + + + + | Magnesium | 2.1Comment: Testing | 1.7 - 2.4 mg/dL | [facility] | | | | performed at [facility], [address] | | LABORATORY | | | | [address], | | | | | | [place] [address] | | | | + + + + + + + + | Specimen | + + | Blood | + + + + + + + | Performing | Address | City/State/Zipcode | Phone Number | | Organization | | | | + + + + + | [facility] | [address] | [place] [address] | [phone] | + + + + + CBC [...] [facility] | | | | performed at [facility];[address] | | LABORATORY | | | | [address];[place], [place] | | | | | | [address] | | | | + + + + + + + + | Specimen | + + | Blood | + + + + + + + | Performing | Address | City/State/Zipcode | Phone Number | | Organization | | | | + + + + + | [facility] | [address] | [place] [address] | [phone] | + + + + + Comprehensive [...] | >60Comment: GFR <60: | >60 | [facility] | | | GFR | [...] | | | | | performed at [facility], [address] | | | | | | [facility], | | | | | | [place] [address] | | | | + + + + + + + + | Specimen | + + | Blood | + + + + + + + | Performing | Address | City/State/Zipcode | Phone Number | | Organization | | | | + + + + + | [facility] | [address] | [place] [address] | [phone] | + + + + + Iron, Total (04/07/2019 5:02 AM PST) + + + + + + | Component | Value | Ref Range | Performed | Pathologist | | | | | At | Signature | + + + + + + | Iron | 23 (L)Comment: Testing | 45 - 190 ug/dL | [facility] | | | | performed at [facility], [address] | | LABORATORY | | | | [address], | | | | | | [place] [address] | | | | + + + + + + + + | Specimen | + + | Blood | + + + + + + + | Performing | Address | City/State/Zipcode | Phone Number | | Organization | | | | + + + + + | [facility] | [address] | [place] [address] | [phone] | + + + + + POC [...] | | | POC | performed at [facility];[address] | | LABORATORY | | | | [address];[place] | | | | | | [address] | | | | + + + + + + + + | Specimen | + + | | + + + + + + + | Performing | Address | City/State/Zipcode | Phone Number | | Organization | | | | + + + + + | [facility] | [address] | [place] [address] | [phone] | + + + + + POC [...] | | | POC | performed at [facility];[address] | | LABORATORY | | | | [address];[place], [place] | | | | | | [address] | | | | + + + + + + + + | Specimen | + + | | + + + + + + + | Performing | Address | City/State/Zipcode | Phone Number | | Organization | | | | + + + + + | [facility] | [address] | [place] [address] | [phone] | + + + + + Culture, [...] | [facility] | | | Requests | [facility];[address] [facility] | | LABORATORY | | | | [address];[place] [address] | | | | + + + + + + | RESULT | 1+NORMAL SKIN CELSA | | [facility] | | | | ISOLATED | | LABORATORY | | | | | | | | + + + + + + | RESULT | NO FURTHER WORKUP | | [facility] | | | | | | LABORATORY | | + + + + + + | RESULT | Testing performed at | | [facility] | | | | [facility], [address] [facility] | | LABORATORY | | | | [place], [place] | | | | | | [id number]: Testing | | | | | | performed at [facility], [address] | | | | | [address], [place] | | | | | | [address] | | | | + + + + + + + + | Specimen | + + | Body Fluid - Entire | | heel (body | | structure) | + + + + + + + | Performing | Address | City/State/Zipcode | Phone Number | | Organization | | | | + + + + + | [facility] | [address] | [place] [address] | [phone] | + + + + + Culture, [...] | [facility] | | | Requests | [facility];[address] [place] [address] | | LABORATORY | | | | Blvd;[place] [address] | | | | + + + [...] Comment: Testing | | | performed at [facility], | | | [address], | | | [place] [address] | +---+ + + + + + + | Performing | Address | City/State/Zipcode | Phone Number | | Organization | | | | + + + + + | [facility] | [address] | [place] [address] | [phone] | + + + + + Ferritin (04/06/2019 2:30 PM PST) + + + + + + | Component | Value | Ref Range | Performed | Pathologist | | | | | At | Signature | + + + + + + | Ferritin | 62Comment: Testing | 11 - 450 ng/mL | [facility] | | | | performed at [facility], [address] | | LABORATORY | | | | [address], | | | | | | [place] [address] | | | | + + + + + + + + | Specimen | + + | Blood | + + + + + + + | Performing | Address | City/State/Zipcode | Phone Number | | Organization | | | | + + + + + | [facility] | [address] | [place] [address] | [phone] | + + + + + Vitamin [...] [facility] | | | | performed at [facility], [address] | | LABORATORY | | | | [address], | | | | | | [place] [address] | | | | + + + + + + + + | Specimen | + + | Blood | + + + + + + + | Performing | Address | City/State/Zipcode | Phone Number | | Organization | | | | + + + + + | [facility] | [address] | [place] [address] | [phone] | + + + + + Troponin [...] at | | | | | | [facility];[address] [facility] | | | | | | [facility];[place] [address] | | | | + + + + + + + + | Specimen | + + | Blood | + + + + + + + | Performing | Address | City/State/Zipcode | Phone Number | | Organization | | | | + + + + + | [facility] | [address] | [place] [address] | [phone] | + + + + + POC Glucose (04/06/2019 11:28 AM PST) + + + + + + | Component | Value | Ref Range | Performed | Pathologist | | | | | At | Signature | + + + + + + | Glucose, | 175 (H)Comment: Testing | 65 - 99 mg/dL | [facility] | | | POC | performed at [facility];[address] | | LABORATORY | | | | [address];[place] | | | | | | [address] | | | | + + + + + + + + | Specimen | + + | | + + + + + + + | Performing | Address | City/State/Zipcode | Phone Number | | Organization | | | | + + + + + | [facility] | [address] | [place] [address] | [phone] | + + + + + VAS [...] | | | POC | performed at [facility];[address] | | LABORATORY | | | | [address];[place] | | | | | | [address] | | | | + + + + + + + + | Specimen | + + | | + + + + + + + | Performing | Address | City/State/Zipcode | Phone Number | | Organization | | | | + + + + + | [facility] | [address] | [place] [address] | [phone] | + + + + + Troponin I (04/06/2019 8:31 AM PST) + + + + + + | Component | Value | Ref Range | Performed | Pathologist | | | | | At | Signature | + + + + + + | Troponin I | 0.19 (H)Comment: 0.04 | 0.00 - 0.04 | [facility] | | | | ng/mL [...] at | | | | | | [facility];[address] [place] [address] | | | | | | [facility];[place] [address] | | | | + + + + + + + + | Specimen | + + | Blood | + + + + + + + | Performing | Address | City/State/Zipcode | Phone Number | | Organization | | | | + + + + + | [facility] | [address] | [place] [address] | [phone] | + + + + + XR [...] Special | Testing performed at | | [facility] | | | Requests | [facility];[address] | | LABORATORY | | | | [address];[place] [address] | | | | + + + + + + | RESULT | NO GROWTH 6 DAYS | | [facility] | | | | | | LABORATORY | | + + + + + + | RESULT | Testing performed at | | [facility] | | | | [facility], [address] [facility] | | LABORATORY | | | | [place], [place] | | | | | | [id number]: Testing | | | | | | performed at [facility], [address] | | | | | [address], [place], [place] | | | | | | [address] | | | | + + + [...] [facility] | [address] | [place] [address] | [phone] | + + + + + Culture, [...] Special | Testing performed at | | [facility] | | | Requests | [facility];[address] | | LABORATORY | | | | [place];[place] [address] | | | | + + + + + + | RESULT | NO GROWTH 6 DAYS | | [facility] | | | | | | LABORATORY | | + + + + + + | RESULT | Testing performed at | | [facility] | | | | [place]CL, [address] [facility] | | LABORATORY | | | | [place], [place] | | | | | | [id number]: Testing | | | | | | performed at [facility], [facility] | | | | | | [address] [place], [place] | | | | | | [address] | | | | + + + + + + + + | Specimen | + + | Blood - Peripheral | | blood specimen | | (specimen) | + + + + + + + | Performing | Address | City/State/Zipcode | Phone Number | | Organization | | | | + + + + + | [facility] | [address] | [place] [address] | [phone] | + + + + + B [...] | | LABORATORY | | | | [facility] [place] | | | | | | [address];[place] [address] | | | | + + + + + + + + | Specimen | + + | | + + + + + + + | Performing | Address | City/State/Zipcode | Phone Number | | Organization | | | | + + + + + | [facility] | [address] | [place] [address] | [phone] | + + + + + Lipid [...] | 13Comment: Testing | <100 mg/dL | [facility] | | | Calculated | performed at [facility], [address] | | LABORATORY | | | | [address], | | | | | | [place] [address] | | | | + + + + + + + + | Specimen | + + | Blood | + + + + + + + | Performing | Address | City/State/Zipcode | Phone Number | | Organization | | | | + + + + + | [facility] | [address] | [place] [address] | [phone] | + + + + + Hemoglobin A1C (04/06/2019 2:48 AM PST) + + + + + + | Component | Value | Ref Range | Performed | Pathologist | | | | | At | Signature | + + + + + + | Hemoglobin | 7.8 (H)Comment: HbA1c | 4.0 - 6.0 % | [facility] | | | A1c | [...] | 177 (H)Comment: | <154 mg/dL | [facility] | | | Average | Estimated Average | | LABORATORY | | | Glucose | Glucose calculated from | | | | | | hemoglobin A1c by use of | | | | | | the ADArecommended | | | | | | formula.Testing | | | | | | performed at [facility], [address] | | | | | | [address], | | | | | | [place] [address] | | | | + + + + + + + + | Specimen | + + | Blood | + + + + + + + | Performing | Address | City/State/Zipcode | Phone Number | | Organization | | | | + + + + + | [facility] | [address] | [place] [address] | [phone] | + + + + + Magnesium (04/06/2019 2:48 AM PST) + + + + + + | Component | Value | Ref Range | Performed | Pathologist | | | | | At | Signature | + + + + + + | Magnesium | 1.4 (L)Comment: Testing | 1.7 - 2.4 mg/dL | [facility] | | | | performed at [facility], [address] | | LABORATORY | | | | [address], | | | | | | [place] [address] | | | | + + + + + + + + | Specimen | + + | Blood | + + + + + + + | Performing | Address | City/State/Zipcode | Phone Number | | Organization | | | | + + + + + | [facility] | [address] | [place] [address] | [phone] | + + + + + Comprehensive [...] | | | | | performed at [facility], [address] | | | | | | [facility], | | | | | | [place] [address] | | | | + + + + + + + + | Specimen | + + | Blood | + + + + + + + | Performing | Address | City/State/Zipcode | Phone Number | | Organization | | | | + + + + + | [facility] | [address] | [place] [address] | [phone] | + + + + + CBC [...] | | | | | | at [facility];[address];[place] [address] | | | | | |NORMAL PLT MORPH | | | | | |Testing performed at [facility];[address];[place] [address] | | | | | | | | | | + + + + + + + + | Specimen | + + | Blood | + + + + + + + | Performing | Address | City/State/Zipcode | Phone Number | | Organization | | | | + + + + + | [facility] | [address] | [place] [address] | [phone] | + + + + + Ev [...] | | | | | performed at [facility] | | | | | | [address];[place], [place] | | | | | | [address] | | | | + + + + + + + + | Specimen | + + | Blood | + + + + + + + | Performing | Address | City/State/Zipcode | Phone Number | | Organization | | | | + + + + + | [facility] | [address] | [place] [address] | [phone] | + + + + + PTT (04/06/2019 2:48 AM PST) + + + + + + | Component | Value | Ref Range | Performed | Pathologist | | | | | At | Signature | + + + + + + | PTT | 34 (H)Comment: Testing | 23 - 32 seconds | IDA | | | | performed at [facility];[address] | | LABORATORY | | | | [address];[place] | | | | | | [address] | | | | + + + + + + + + | Specimen | + + | Blood | + + + + + + + | Performing | Address | City/State/Zipcode | Phone Number | | Organization | | | | + + + + + | [facility] | [address] | [place] [address] | [phone] | + + + + + Troponin [...] at | | | | | | [facility];[address] [place] [address] | | | | | | [facility];[place] [address] | | | | + + + + + + + + | Specimen | + + | Blood | + + + + + + + | Performing | Address | City/State/Zipcode | Phone Number | | Organization | | | | + + + + + | [facility] | [address] | [place] [address] | [phone] | + + + + + documented [...] | | | | | dose on [facility] 04/12/19 at 2100 | | | [...]
--- OUTSIDE RECORDS SUMMARY | ~2019-08-08 | XMS | Encounter Summary ---
Demographics + + + | Address | [address] | | | [place] [address] | + + + | Home Phone | | + + + | Preferred Language | Unknown | + + + | Marital Status | | + + + | Nondenominational Affiliation | 1076 | + + + [...] + | Jessica Shepard | ECON | [address] | | | | | [place] | | | | | [address] | | + + + + + | Bel Solis | ECON | Unknown | | + + + + + Care Team Providers + +------+ + | Care Dado Operator Name | Role | Phone | [...] + + | 07/22/ | Telephone | [facility] | Dylan Gaston, | Other (He is | | 2020 | | INFECTIOUS DISEASE | Hero Malave MD | refusing to come to | | | | [address] | [address] | appointment. He will | | | | [place] | [place] [address] | call us back when | | | | [address] | [phone] | he is ready.) | | | | [phone] | | | +--------+ + + + [...]
--- OUTSIDE RECORDS SUMMARY | ~2019-08-08 | XMS | Encounter Summary ---
Demographics + + + | Address | [address] | | | [place] [address] | + + + | Home Phone | | + + + | Preferred Language | Unknown | + + + | Marital Status | | + + + | Baptism Affiliation | 1076 | + + + | Race | Unknown | + + + | Ethnic Group | Unknown | + + + Author + + + | Author | [facility] | | | and [place] | + + + | Organization | [facility] | | | and [place] | + + + | Address | Unknown | + + + | Phone | Unavailable | + + + Support + + + + + | Name | Relationship | Address | Phone | + + + + + | Jessica Shepard | ECON | [address] | | | | | [place] | | | | | [address] | | + + + + + | Bel Solis | ECON | Unknown | | + + + + + Care Team Providers + +------+ + | Care Staff Radiographer Name | Role | Phone | + [...] + + | 05/14/ | Documentati | [facility] | Nimo [place], | Other (*Labs from | 2019 | on | INFECTIOUS DISEASE | Mobile Pet Groomer | [facility] | | | | [address] | | 05/11/2019 | | | | [facility] | | (CREATININE WITH | | | | [address] | | GFR)) | | | | [phone] | | | +--------+ + + + [...] as of this encounter Progress Nimo Harley, Mobile Pet Groomer - 05/14/2019 2:47 PM PST*Labs from [facility] (CREATININE WITH GFR) RECEIVED: 05/14/2019 Labs were abstracted into [employer] and sent to scan. Kaye CMA Tdocumented [...] | [address] [facility] | [place], [place] | [phone] | | [facility] | | [address] | | + + + + + [...]
--- OUTSIDE RECORDS SUMMARY | ~2019-08-08 | XMS | Encounter Summary ---
Demographics + + + | Address | [address] | | | [place] [address] | + + + | Home Phone [...] + + | Author | [facility] | | | and [place] | + + + | Organization | [facility] | | | and [place] | + + + | Address | Unknown | + + + | Phone | Unavailable | + + + Support + + + + + | Name | Relationship | Address | Phone | + + + + + | Jessica Shepard | ECON | [address] | | | | | [place] | | | | | [address] | | + + + + + | Bel Solis | ECON | Unknown | | + + + + + Care Team Providers + +------+ + | Care Vegetable Scullion Name | Role | Phone | + [...] + + | 05/23/ | Telephone | [facility] | Nimo [place]brook, | Care Coordination | | 2020 | | INFECTIOUS DISEASE | Drupal Php Developer | (EOT??); Other (pic | | | | [address] | | d/c) | | | | [place] | | | | | | [address] | | | | | | [phone] | | | +--------+ + + + [...]
--- OUTSIDE RECORDS SUMMARY | ~2019-08-08 | XMS | Encounter Summary ---
Demographics + + + | Address | [address] | | | [place] [address] | + + + | Home Phone | | + + + | Preferred Language | Unknown | + + + | Marital Status | | + + + | Temple Affiliation | 1076 | + + + | Race | Unknown | + + + | Ethnic Group | Unknown | + + + Author + + + | Author | [facility] | | | and [place] | + + + | Organization | [facility] | | | and [place] | + + + | Address | Unknown | + + + | Phone | Unavailable | + + + Support + + + + + | Name | Relationship | Address | Phone | + + + + + | Jessica Shepard | ECON | [address] | | | | | [place] | | | | | [address] | | + + + + + | Bel Solis | ECON | Unknown | | + + + + + Care Team Providers + +------+ + | Care Roads Superintendent Name | Role | Phone | + +------+ + | Dian Lr NP | PCP | | + +------+ + Encounter Details +--------+ + + + + | Date | Type | Department | Care Team | Description | +--------+ + + + + | 05/14/ | Hospital | [facility] | Conversion | Pain | | 2017 | Encounter | CONVERSION [address] | Transaction, | | | | [address] | Provider Unknown | | | | | [place] | [phone] | | | | | [address] | | | | | | [phone] | | | +--------+ + + + [...]
--- OUTSIDE RECORDS SUMMARY | ~2019-08-08 | XMS | Encounter Summary ---
Demographics + + + | Address | [address] | | | [place] [address] | + + + | Home Phone | | + + + | Preferred Language | Unknown | + + + | Marital Status | | + + + | Taoism Affiliation | 1076 | + + + | Race | Unknown | + + + | Ethnic Group | Unknown | + + + Author + + + | Author | [facility] | | | and [place] | + + + | Organization | [facility] | | | and [place] | + + + | Address | Unknown | + + + | Phone | Unavailable | + + + Support + + + + + | Name | Relationship | Address | Phone | + + + + + | Jessica Shepard | ECON | [address] | | | | | [place] | | | | | [address] | | + + + + + | Bel Solis | ECON | Unknown | | + + + + + Care Team Providers + +------+ + | Care It Solutions Sales Consultant Name | Role | Phone | + +------+ + | Dian Lr NP | PCP | | + +------+ + Encounter Details +--------+ + + + + | Date | Type | Department | Care Team | Description | +--------+ + + + + | 10/16/ | Orders Only | [facility] | Provider, | Other acute | | 2019 | | SYSTEM GENERIC OP | MD [address] | osteomyelitis, right | | | | CONVERSION [address] | [address] | ankle and foot | | | | [address] [place], [place] | [place] [address] | ([facility]) | | | | [address] | | | | | | [phone] | | | +--------+ + + + [...]
--- OUTSIDE RECORDS SUMMARY | ~2019-08-08 | XMS | Encounter Summary ---
Demographics + + + | Address | [address] | | | [place] [address] | + + + | Home Phone | | + + + | Preferred Language | Unknown | + + + | Marital Status | | + + + | Gnosticist Affiliation | 1076 | + + + [...] + | Jessica Shepard | ECON | [address] | | | | | [place] | | | | | [address] | | + + + + + | Bel Solis | ECON | Unknown | | + + + + + Care Team Providers + +------+ + | Care Supervisor Prop Making Name | Role | Phone | + [...] + + | 05/15/ | Office | [facility] | Dylan Gaston, | Chronic | | 2020 | Visit | INFECTIOUS DISEASE | Hero Malave MD | osteomyelitis of | | | | [address] | [address] | right foot (HCC) | | | | [place], [place] | [place] [address] | (Primary Dx); Acute | | | | [address] | [phone] | osteomyelitis of | | | | [phone] | | metatarsal bone, | | | [...] Garcia MD - 05/15/2019 3:20 PM PST [facility] Service: Infectious Diseases Outpatient [...] atory failurewho presents as a transfer from [place] ED. Patient is somewhat of a poor historian so the majority of the history is obtained from the record and from the ED physic jacob. Patient had recently been admitted to the [facility] from 03/28/19 to 04/04/19 w here he was treated/diagnosed with systolic heart failure, type 2 ND/NSTEMI, SHAE, ARF. It ap pears that patient [...] patient was brought the to ED at [facility] again (03/1618). Patient was found to [...] coverage a call was made to the conventional mortgage underwriter funeral home associate here at [facility] (Dr. Jessenia Wallace), who recommended patient [...] Procedure: CYSTOSCOPY; Surgeon: Aleksander Montiel MD; [facility] CHOLECYSTECTOMY FEMORAL-TIBIAL BYPASS GRAFT Right 04/18/2019 Procedure: BYPASS GRAFT FEMORAL-TIBIAL; Surgeon: Gianluca Robbins MD; [facility] HERNIA REPAIR TOE AMPUTATION Right 11/21/2017 Procedure: Amputation Right 5th Metatarsal; Surgeon: Simone Aceves DPM; [facility] Social History Socioeconomic History [...] file Gets together: Not on file Attends congregational service: Not on file Active member of [...] bacterial infection 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
--- OUTSIDE RECORDS SUMMARY | ~2019-08-08 | XMS | Encounter Summary ---
Demographics + + + | Address | [address] | | | [place] [address] | + + + | Home Phone [...] + | Jessica Shepard | ECON | [address] | | | | | [place] | | | | | [address] | | + + + + + | Bel Solis | ECON | Unknown | | + + + + + Care Team Providers + +------+ + | Care General Accounting Clerk Name | Role | Phone | + +------+ + PCP | Unavailable | + +------+ + Encounter Details +--------+ + + + + | Date | Type | Department | Care Team | Description | +--------+ + + + + | 12/27/ | Hospital | [facility] | | | | 2006 | Encounter | MED CTR XRAY [address] | | | | | | [employer] [place] | | | | | | [place] [address] | | | | | | [phone] | | | +--------+ + + + [...]
--- OUTSIDE RECORDS SUMMARY | ~2019-08-08 | XMS | Encounter Summary ---
Demographics + + + | Address | [address] | | | [place] [address] | + + + | Home Phone | | + + + | Preferred Language | Unknown | + + + | Marital Status | | + + + | Lutheran Affiliation | 1076 | + + + | Race | Unknown | + + + | Ethnic Group | Unknown | + + + Author + + + | Author | [facility] | | | and [place] | + + + | Organization | [facility] | | | and [place] | + + + | Address | Unknown | + + + | Phone | Unavailable | + + + Support + + + + + | Name | Relationship | Address | Phone | + + + + + | Jessica Shepard | ECON | [address] | | | | | [place] | | | | | [address] | | + + + + + | Bel Solis | ECON | Unknown | | + + + + + Care Team Providers + +------+ + | Care Senior Market Intelligence Consultant Name | Role | Phone | [...] + + | 05/22/ | Documentati | [facility] | Nimo [place], | Other (*Labs from | 2019 | on | INFECTIOUS DISEASE | Programmer Operator Numerical Control | [facility] | | | | [address] | | 05/21/2019 | | | | [place] | | (CBC,CMP,ESR,CRP,VAN | | | | [address] | | [place] TROUGH)) | | | | [phone] | | | +--------+ + + + [...] as of this encounter Progress Nimo Harley, Programmer Operator Numerical Control - 05/23/2019 3:55 PM PST*Labs from [facility] 04/2019 (CBC,CMP,ESR,CRP,VANCO TROUGH) RECEIVED: 05/23/2019 Labs were abstracted into [employer] and sent to scan. Kaye CMA Tdocumented [...] [address] | [place] | [phone] | | [facility] | | [address] | | + + + + + [...] + + + | REFERENCE LAB | [facility] | [place] | [phone] | | [facility] | | [address] | | + + + + + [...] + | REFERENCE LAB | [address] | [place] | [phone] | | [facility] | | [address] | | + + + + + [...] + | REFERENCE LAB | [address] | [place] | [phone] | | [facility] | | [address] | | + + + + + [...] + + | REFERENCE LAB | [address] [facility] | [place] | [phone] | | [facility] | | [address] | | + + + + + [...]
--- OUTSIDE RECORDS SUMMARY | ~2019-08-08 | XMS | Encounter Summary ---
Demographics + + + | Address | [address] | | | [place] [address] | + + + | Home Phone [...] + | Jessica Amezquita | ECON | [address] | | | | | [place] | | | | | [address] | | + + + + + | Bel Solis | ECON | Unknown | | + + + + + Care Team Providers + +------+ + | Care Drafter Refrigeration Name | Role | Phone | + +------+ + | Dian Lr NP | PCP | | + +------+ + Encounter Details +--------+ + + + + | Date | Type | Department | Care Team | Description | +--------+ + + + + | 05/14/ | Hospital | [facility] | Marlin Mckeon | Received intravenous | | 2017 - | Encounter | [facility] | MD [place] [address] | tissue plasminogen | | | | CARE FLOOR [address] [place], [place] | activator (tPA) in | | 05/19/ | | [facility] | [id number] | emergency | | 2017 | | [place], [place] | | department; Acute | | | | [address] | | left hemiparesis | | | | [phone] | | ([facility]); 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 | | | | | | with hyperglycemia, | | | | | | with long-term | | | | | | current use of | | | | | | insulin ([facility]); | | | | | | Ischemic stroke | | | | | | diagnosed during | | | | | | current admission | | | | | | ([facility]); 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, with | | | | | | long-term current | | | | | | use of insulin | | | | | | ([facility]); Moderate | | | | | | protein-calorie | | | | | | malnutrition ([facility]); | | | | | [...] Date of Service: 05/19/16 105 Status: Signed Gate Mortiser Operator: Jeff Corley DO (Physician) [facility]: Hospitalist Discharge Summary Date of [...] edema Skin - dry no erythema Disposition: residential Condition: Stable Code Status: Full [...] Tolerated Follow up: Saurabh Fritz DO [address] [address] Medication List START taking these medications atorvastatin [...] Date of Service: 05/19/16 1231 Status: Signed Gate Mortiser Operator: Sandra Cedillo RN (Registered Nurse) Report given to ELLIOT M[facility]quez at [facility]. Pt aware of transfer plan. Facility van to pick pt up at 1300. onver elder Transaction, Provider Unknown - 05/19/2016 11:41 AM PST Case Management by Lisa Hogan RN at 05/19/16 1141 Author: Lisa Hogan RN Service: (none) Author Type: Registered Nurse Filed: 05/19/16 1142 Date of Service: 05/19/16 1141 Status: Signed Gate Mortiser Operator: Lisa Hogan RN (Registered Nurse) 05/19/16 1128 Anticipated Disposition Facility Type care home facility Discharge Appointment Time 1300 Medicare Important Message (ROS) Given Fdc Facility Other (comment) ([facility]) Disposition: [facility] Transportation: W/C van provided by facility All orders, signed AVS, and prescriptions have been faxed All DC paperwork completed Patient and family in agreement with discharge plan Medicare important message (Given or N/A): yes Tc to spouse Jessica who agrees with d/c plan to [facility]. Negar onver elder Transaction, Provider Unknown - 05/19/2016 11:40 AM PST Therapy Progress Note by Theresa Gonzales PT at 05/19/16 1140 Author: Theresa Gonzales PT Service: (none) Author Type: Physical Therapist Filed: 05/19/16 1140 Date of Service: 05/19/16 1140 Status: Signed Gate Mortiser Operator: Theresa Gonzales PT (Physical Therapist) 05/19/16 1139 [...] Author: HARIS Lemon Service: (none) Author Type: Spotlight Operator Filed: 05/19/16 1114 Date of Service: 05/19/16 1102 Status: Signed Gate Mortiser Operator: HARIS Lemon (Spotlight Operator) 05/19/16 1100 Discharge Planning Evaluation Admitting Diagnosis CVA, TPA given Anticipated Disposition Facility Type care home facility Fdc Facility Other (comment) ([facility]) SHIPFITTERS SUPERVISOR p/c Cheryl Bashir [facility] [place], states she received phone call from [facility], asking for authorization. SHIPFITTERS SUPERVISOR assisted Pt and Pt (Jessica Devyn [phone]) regarding [facility] form, assisted with form and faxed to [facility] [place] - Cheryl Bashir [phone] ext. [phone]. During filli ng out [facility] [place], Pt stated "We wanted [facility] over [facility], but we were told [facility] was denied by [place]." SHIPFITTERS SUPERVISOR provided choice of accepting facili ties. SHIPFITTERS SUPERVISOR p/c Carlos with [facility] states they will accept Pt, they are VA contracted, if Pt choice. SHIPFITTERS SUPERVISOR met with Negar ZARATE regarding the discrepancy of information about Pt choice. SHIPFITTERS SUPERVISOR with Neg[facility] Z[facility] met with Pt and Pt (Jessica Amezquita) regarding choice, after lengthy discussion, they went back and forth regarding facilities, Pt finally chose [facility]. DCP: [facility] NAOMY BOGGSSTANLEY, Spotlight Operator [phone] cell onver elder Transaction, Provider Unknown - 05/19/2016 8:06 AM PST Case Management by Lisa Hogan RN at 05/19/16 0806 Author: Lisa Hogan RN Service: (none) Author Type: Registered Nurse Filed: 05/19/161111 Date of Service: 05/19/16805 Status: Addendum Gate Mortiser Operator: Lisa Hogan RN (Registered Nurse) Related Notes: Original Note by Lisa Hogan RN (Registered Nurse) filed at 05/19/16 082 1 0800:Tc to Carlos at [facility]/[phone] re VA benefits and acceptance. Tc to Jessica, she states she rather have pt go to [facility] and not [facility]/. Went to meet with pt and he spoke to Jessica over the phone and agrees with going to [facility]. Tc to Jimmy at [facility], left [facility] re acceptance. 1030: per Jimmy, they can [...] Note by Hero You RN at 05/19/16 8603 Author: Hero You RN Service: (none) Author Type: Registered Nurse Filed: 05/19/16 0525 Date of Service: 05/19/16524 Status: Signed Gate Mortiser Operator: Hero You RN (Registered Nurse) No acute changes from previous end of shift report. Will continue monitoring. Hero You RN 05/19/2016 onver elder Transaction, Provider Unknown - 05/18/2016 6:32 PM PST Nurse Progress Note by Sandra Cedillo RN at 05/18/161831 Author: Sandra Cedillo RN Service: (none) Author Type: Registered Nurse Filed: 05/18/161833 Date of Service: 05/18/161831 Status: Signed Gate Mortiser Operator: Sandra Cedillo RN (Registered Nurse) Pt had [...] Date of Service: 05/18/16 1252 Status: Signed Gate Mortiser Operator: Jeff Corley DO (Physician) PROGRESS NOTE 05/18/2016 [...] Problem: Ischemic stroke diagnosed during current admission ([facility]) Active Problems: Received intravenous tissue [...] had an extended conversation with c ase medical and health services manager about which SNF's/towns he liked and [...] Notes by Jenn Richey RD at 05/18/16 3007 Author: Jenn Richey RD Service: (none) Author Type: Registered Dietitian Filed: 05/18/16 1157 Date of Service: 05/18/16 1150 Status: Signed Gate Mortiser Operator: Jenn Richey RD (Registered Dietitian) 05/18/16 1055 [...] Physical Findings Digestive System (Mouth to Rectum) 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 Per Ly, pt needs to go to a VA contracted snf if he wants the VA to provide for copay after his medicare coverage no longer pays 100%. Ly statesthese are some available VA c ontracted snfs: [facility], [facility], [facility], [facility]. [facility] are not contracted with them. Per Ly, if paperwork(PT/MD notes and GEC form ) is submitted now, they can admit pt to a VA contracted snf under VA benefits. Informed Salo wang will discuss with pt and spouse Jessica. Per email from Sheila with [facility], pt declined for IPR. 1130:Tc to Jinny/[facility], she states pt retail shift leader nurse's note, pt has been restless an d applications developer light continously and on IV fentanyl, she is not sure she has the man power to acc ept pt. 1200: Tc to spouse Jessica, , [facility] regarding snf placement. Met with pt regarding snf and VA benefits. Pt states he will discuss with spouse, but would consider going to [place]. Sent e-referrals. Pt states Jessica will be here this evening and would like to discuss with CM options. Informed pt [facility]) has accepted pt but they are not VA contracted. 1300: per rounding with pt, he wants referral sent to [facility] too. Referral sent. Referral sent to HARIS Nichols to assist with "GEC" paperwork for the VA 1500: Tc to Carlos with [facility]([phone]), he thinks pt can be accepted when medically roseann dy, but first have to review pt's VA benefits to make sure rehab is covered. Tc to Jessica again,([phone]) left [facility] about rehab placement. Attempted to call Shonda reilly at work,[phone], busy signal. 1530: per Jimmy at [facility], they can accept pt when he is medically ready and if he wants to go there. Notified pt onver elder Transaction, Provider Unknown - 05/18/2016 10:37 AM PST Progress Notes by Khadra Osman RD, DANNY at 05/18/16 1037 Author: Khadra Osman RD, CDE Service: (none) Author Type: Electro Mechanical Engineer Filed: 05/18/16 1044 Date of Service: 05/18/16 1037 Status: Signed Gate Mortiser Operator: Khadra Osman RD, CDE (Electro Mechanical Engineer) Met with pt. Reports he's had diabetes for 6 years. He gets all medications through the [facility] for his diabetes. States his of 49 years also has insulin dependent diabetes. At [facility] he was prescribed: 50 units of [...] his blood sugar. Reports he's been through [employer] es education classes two times - but [...] the VA. Khadra Osman RD, MPH, CDE, Electro Mechanical Engineer 05/18/2016 10:43 AM onver elder Transaction, Provider Unknown - 05/18/2016 4:36 AM PST Nurse Progress Note by Hero You RN at 05/18/16435 Author: Hero You RN Service: (none) Author Type: Registered Nurse Filed: 05/18/16436 Date of Service: 05/18/16435 Status: Signed Gate Mortiser Operator: Hero You RN (Registered Nurse) Pts VSS, [...] 05/17/161701 Date of Service: 05/17/161699 Status: Signed Gate Mortiser Operator: Sandra Cedillo RN (Registered Nurse) Pt anxious [...] Date of Service: 05/17/16 1500 Status: Signed Gate Mortiser Operator: Cheryl Rodney PT (Physical Therapist) 05/17/16 1500 PT Last Visit PT Received On 05/17/16 Reason for Treatment Stroke Requires PT Follow Up Yes Follow up PT Only? Yes (complexity) Assistance Required 2 person Services Delivery Driver Needed No Precautions UE Precaution(s) LUE Precautions/WB [...] lift for transfer back to bed - RN/TEST ENGINE MECHANIC aware of pt positioning/abilities and need for [...] Barriers to Discharge Cognitive Deficits Impacting Functional [place];Self-care Defici ts Impacting Functional [place];Physical Deficits Impacting Functional [place];Malik rological Impairment (see comment) Recommendation Comments Pt [...] Date of Service: 05/17/16 1238 Status: Addendum Gate Mortiser Operator: Jeff Corley DO (Physician) Related Notes: Original Note by Jeff Corley DO (Physician) filed at 05/17/16 1559 PROGRESS NOTE 05/17/2016 for Reagan Amezquita on the hospitalist service. ASSESSMENT & PLAN Acute CVA S/p tPA, monitored in ICU, neuro stable. Continue aspirin, statin. BP has been in normal range, not an antihypertensives here or at home. Therapies working with patient, hope to transfer to [facility] pending insurance authorization ([place] si[place]). May need to follow with vascular [...] Problem: Ischemic stroke diagnosed during current admission ([facility]) Active Problems: Received intravenous tissue [...] Management by Lisa Hogan RN at 05/17/16 2639 Author: Lisa Hogan RN Service: (none) Author Type: Registered Nurse Filed: 05/17/16 9986 Date of Service: 05/17/16 6143 Status: Addendum Gate Mortiser Operator: Lisa Hogan RN (Registered Nurse) Related Notes: Original Note by Lisa Hogan RN (Registered Nurse) filed at 05/17/16 130 3 Per rounding with pt, he is A&O x4. Pending IPR. Sent email to Sheila at [facility] for status. Left VM for PT regarding f/u with pt 1230:Tc to spouse Jessica regarding snf placement in case [facility] declines pt. Jessica upset as s he thought "doctor" had told her son yesterday that pt was a good candidate for [facility] and was accepted to [facility]. Informed Jessica Machado has not made decision yet as he is "following pt". Jessica wants referrals sent to [facility] , [facility] and [facility]. Jessica asks that we dont mention to pt snf placement yet until a decision i s made about IPR. Negar onver elder Harris, Provider Unknown - 05/17/2016 10:05 AM PST Therapy Progress Note by TOLU Xiao/Parminder at 05/17/16 1005 Author: GABE Xiao Service: (none) Author Type: Occupational Therapist Filed: 05/17/16 1240 Date of Service: 05/17/16 1005 Status: Signed Gate Mortiser Operator: GABE Xiao (Occupational Therapist) 05/17/16 1005 OT Last Visit OT Received On 05/17/16 Reason for Treatment Stroke Requires OT Follow Up Awaiting tx order OT Eval/Reassessment Date 05/17/16 Assistance Required 2 person Services Delivery Driver Needed No Family/Caregiver Present No Precautions Other Precautions high fall risk, L hemiparesis Other Comments Comments OT eval orders received/verified. Pt willing to participate in OT this AM. Chart r eviewed-relevant to OT evaluation: Left sided weakness, s/p IV rtPA with little improvement, due to right bogdan infarction, most likely naqbkm-[id number] in etiology related to uncontrol led DM; [...] Days Recommendation Recommendation Rehab consult Equipment Recommended Analytical Consultant;Bedside commode;Elastic shoe laces;[facility] Ready for Discharge Yes (may [...] note for PLOF Prior Function Level of [place] Independent with functional mobility;Independent with ADLs;Independe nt [...] equipment (bed level) LE Dressing Adaptive Equipment Analytical Consultant;Dressing stick Arm Goals Pt Will Tolerate SROM [...] order Recommendation Recommendation Rehab consult Equipment Recommended Analytical Consultant;Bedside commode;Elastic shoe laces;[facility] OT Ready for Discharge [...] stroke, neurological resource center guide Moderate - 72304 High - 19399 History Expanded review of medical records; additional review of physical, cognitive, or ps ychosocial skills Examination Identification of 5 or more performance deficits Decision Making Presents with comorbidities; significant modification of tasks or assistan ce is needed to complete eval Clinical Decision Making Complexity: Moderate 84339 onver elder Transaction, Provider Unknown - 05/17/2016 5:44 AM PST Nurse Progress Note by Hero You RN at 05/17/16543 Author: Hero You RN Service: (none) Author Type: Registered Nurse Filed: 05/17/1650 Date of Service: 05/17/16543 Status: Signed Gate Mortiser Operator: Hero You RN (Registered Nurse) Pts VSS, [...] 05/16/161652 Date of Service: 05/16/161651 Status: Addendum Gate Mortiser Operator: Teena Matthew RN (Registered Nurse) Related Notes: Original Note by Teena Matthew RN (Registered Nurse) filed at 2353 No change from previous assessment. VSS, hourly [...] 05/16/161513 Date of Service: 05/16/161511 Status: Signed Gate Mortiser Operator: Wing Nina Machado MD (Physician) Patient seen [...] Calculation (Bezet) 05/14/2016 455 Final Calculated P Mauldin 05/14/2016 28 Final Calculated R Mauldin 05/14/2016 -3 Final Calculated T Mauldin 05/14/2016 38 Final Diagnosis 05/14/2016 Final Value:Normal [...] by HARIS De La Garza at 05/16/16 4270 Author: HARIS De La Garza Service: (none) Author Type: Ranch Cook Filed: 05/16/16 7760 Date of Service: 05/16/16 7674 Status: Signed Gate Mortiser Operator: HARIS De La Garza (Ranch Cook) 05/16/16 1201 Discharge Planning Evaluation Admitting Diagnosis [...] Yes Name of Pharmacy [facility] in [place], [place] or the [place] in [place] Previous home health equipment Yes;Comment (Pt uses a cane at baseline) Vascular access device No Ostomy/Drains/Appliances (TBD) Anticipated Disposition Facility Type Other (Comment) Met with patient Reagan Amezquita and discussed discharge planning. 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 The patient resides with his in [facility]. The patient was alert and oriented. [...] disease, and TBI who initially presented to [facility] with left facial droop and left-sided weakness. He had an episode of urinary incontinence and fall, EMS called and patient was brought to [facility] ED. " "Patient is also complaining of a 3-week history of intermittent left-sided weakness and fal ls. He uses a cane for ambulation." Patient's PCP is: Patient's insurance: [employer] & Medicare Coverage concerns: no Medication coverage/concerns: no Rx Bedside Delivery: Preferred Pharmacy[facility] [place] or [facility] Community resources utilized / needed: TBD Assistance in transportation: Spouse - Jessica Amezquita [phone] or work [phone] Identification of any specific education / training: no Barriers to Discharge / Alternative housing needed: TBD Anticipated DCP: Home DWIGHT De La Garza John Hill MD - 05/16/2016 8:26 AM PST Progress Notes by John Myrick MD at 05/16/16 08 Author: John Myrick MD Service: (none) Author Type: Physician Filed: 05/16/16 1131 Date of Service: 05/16/16825 Status: Addendum Gate Mortiser Operator: John Myrick MD (Physician) Related Notes: Original Note by John Myrick MD (Physician) filed at 05/16/16 1108 [facility]: Hospitalist Progress Note Pt: Reagan Amezquita AGE/SEX: 71 y.o. male : 1945 ROOM: [address] [place] [address] REQUESTING PROVIDER: John Myrick MD TODAY'S DATE: 05/16/2016 Hospital Day: LOS: 2 days + past medical history of DM 2 with neuropathy, DDD and TBI Transfer from [facility] seen there with left facial droop and left-sided weakness.,episode of urinary incontin ence and fall, .Acute infarction in the right bogdan, CT head unremarkablMRI e, no ICH. As N IHSS score of 14 TPA Was givien tranfer to [facility] for further care SUBJECTIVE aprt from witness [...] hours. No results for input(s): PHART, PO2ART, FPM0FOO, E7UKFKND, BEART in the last 168 hours. No results for input(s): APTT, INR, PTT in the last 168 hours. No results for input(s): TSH, T3FREE, FREET4 in the last 168 hours. No results for input(s): CKTOTAL, TROPONINI, TROPONINT, CKMBINDEX in the last 168 hours. PROBLEM LIST Principal Problem: Ischemic stroke diagnosed during current admission ([facility]) Active Problems: Received intravenous tissue [...] this point his current strok are pattern legal editor ior circulation at this point asymtomatic carotid stenosiis Consider and need f/ up vascular at out patie nt once d/c Angelica Pearson M D - 05/16/2016 8:26 AM PST Progress Notes by Angelica Bernardo MD at 05/16/16825 Author: Angelica Bernardo MD Service: Neurology Author Type: Physician Filed: 05/16/16840 Date of Service: 05/16/16825 Status: Signed Gate Mortiser Operator: Angelica Bernardo MD (Physician) Subjective: Patient seen [...] due to right bogdan infarction, most likely lmtkqa-qm-pdxowd in etiology related to uncontrolled DM. 2- [...] per patient and no documen tation), recommend emt intermediate Holter (30 days). 8. General care including [...] Date of Service: 05/16/16 0513 Status: Signed Gate Mortiser Operator: Hero You RN (Registered Nurse) Pt A&OX4, [...] 05/15/161938 Date of Service: 05/15/161930 Status: Addendum Gate Mortiser Operator: Sandra Cedillo RN (Registered Nurse) Related Notes: [...] Date of Service: 05/15/16 1242 Status: Signed Gate Mortiser Operator: Douglas Coelho PT (Physical Therapist) 05/15/16 1242 PT Last Visit PT Received On 05/15/16 Reason for Treatment Stroke Requires PT Follow Up Awaiting tx order Follow up PT Only? Yes (complexity) PT Eval/Reassessment Date 05/15/16 Assistance Required 2 person Services Delivery Driver Needed No Home Environment Type of Home Home two story Home Exterior Layout Entry steps none Home Interior Layout Flight one;Rail on L ascending;Lives on main level with bedroom/bathro om;Walker accessible Bathroom Shower/Tub Tub/shower unit Bathroom Toilet Standard Bathroom Equipment Hand-held shower head;Tub transfer bench Bathroom Accessibility Accessible via walker Home Equipment Walker 4 wheeled;Cane single point Prior Function Level of [place] Independent with functional mobility;Independent with ADLs;Independe nt [...] Barriers to Discharge Cognitive Deficits Impacting Functional [place];Physical Deficit s Impacting Functional [place];Self-care Deficits Impacting Functional [place];Malik rological Impairment (see comment) Recommendation Comments pt. needs Max x 2 for transfers and mobility and should benefit fro m SNF to improve strength, endurance and functional mobility 05/15/16 1242 PT Last Visit PT Received On 05/15/16 Reason for Treatment Stroke Requires PT Follow Up Awaiting tx order Follow up PT Only? Yes (complexity) PT Eval/Reassessment Date 05/15/16 Assistance Required 2 person Services Delivery Driver Needed No Precautions UE Precaution(s) LUE Precautions/WB [...] Barriers to Discharge Cognitive Deficits Impacting Functional [place];Physical Deficit s Impacting Functional [place];Self-care Deficits Impacting Functional [place];Malik rological Impairment (see comment) Recommendation Comments pt. needs Max x 2 for transfers and mobility and should benefit fro m SNF to improve strength, endurance and functional mobility Low - 84867 Moderate - 80948 High - 42937 History no personal factors &/or comorbidities 1-2 personal factors &/or comorbidities 3 o r more personal factors &/or comorbidities Examination 1-2 elements 3 elements 4 or more elements Clinical Presentation stable evolving unstable Clinical Decision Making Complexity: Low 82477 Moderate 27688 High 26438 Viviana Ferrer ARNP - 05/15/2016 9:41 AM PSTFormatting of this note might be different from stephanie brown original. Progress Notes by RUBEN Atkins at 05/15/16 09 Author: RUBEN Atkins Service: Melt Down Furnace Operator Author Type: Advanced Registered Nu rse Practitioner Filed: 05/15/16 1345 Date of Service: 05/15/16940 Status: Signed Gate Mortiser Operator: RUBEN Atkins (Advanced Registered Nurse Practitioner) [facility]: Melt Down Furnace Operator Progress Note Reagan Amezquita 71 [facility].o. Hospital [...] disease, and TBI who initially presented to [facility] with left facial droop and left-sided weakness. He had an episode of uri nary incontinence and fall, EMS called and patient was brought to [facility] ED. Patient was last seen [...] Problem: Ischemic stroke diagnosed during current admission ([facility]) Active Problems: Received intravenous tissue [...] of 14. Follow up on arrival to [facility] 9. Dr. Bernardo following Keep BP < 180/105 mmHg, brain MRI 24 hours post-TPA with no e/o hemorrhage. Keep normoth ermic, normoglycemic. PT/OT/REGIONAL FLATBED TRUCK DRIVER following. ? cardioembolic as cause for ischemic [...] On room air. GI/NUTRITION: Moderate protein-calorie malnutrition: [place] thick liquids per REGIONAL FLATBED TRUCK DRIVER recs. GERD: on protonix at home. Continue [...] Service: Neurology Author Type: Physician Filed: 05/15/16 6300 Date of Service: 05/15/16912 Status: Signed Gate Mortiser Operator: Angelica Bernardo MD (Physician) Subjective: Patient seen [...] due to right bogdan infarction, most likely [id number] in etiology related to uncontrolled DM. 2- [...] per patient and no documen tation), recommend long-term Holter (30 days). 9. Consult PT, OT, [...] 05/14/161528 Date of Service: 05/14/161528 Status: Signed Gate Mortiser Operator: Pretty Dhillon RD, CD (Registered Dietitian) 05/14/16 1395 Subjective Timepoint Admit (dysphagia) Pt c/o Pt [...] Fluid / Beverage Intake Oral Fluids Amount [place] thick liquids ad bryant. Ok for 1 [...] subcutaneous fat. 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 Skin Intact. Anthropometrics Weight [...] Estimated Energy Needs Total Energy Estimated Needs 1396-2709 kcal/day Method for Estimating Needs 25-30 kcal/kg admit wt (84.7 kg) Estimated Protein Needs Total Protein Estimated Needs 102-127 g protein/day Method for Estimating Needs 1.2-1.5 g protein/kg admit wt (84.7 kg) Recommendations Recommended energy needs Recommend adding diabetic diet restrictions to current [employer]IVER diet or nigel to help optimize glycemic [...] Therapy Progress Note by Kate Hale MA CCC-REGIONAL FLATBED TRUCK DRIVER at 05/14/16911 Author: Kate Hale MA CCC-REGIONAL [employer]ED TRUCK DRIVER Service: (none) Author Type: Speech and Language Patholo gist Filed: 05/14/1645 Date of Service: 05/14/16911 Status: Signed Gate Mortiser Operator: Kate Hale MA CCC-REGIONAL FLATBED TRUCK DRIVER (Speech and Language Pathologist) 05/14/16911 REGIONAL [employer]ED TRUCK DRIVER Last Visit [employer]IONAL FL[employer]BED TRUCK DRIVER Received On 05/14/16 Requires [employer]ED TRUCK DRIVER Follow Up Yes Swallowing Assessment Eval Swallowing [...] 1/2 trials by cup, none by spoon) [place] Presentation Cup;Self Fed Oral WFL Pharyngeal Phase [...] Larynge al Elevation Recommendations Liquids Consistency Recommendations [place] thick;Ice chips for oral comfort Diet Consistency [...] diet textures, no awareness until cued by [employer]IONAL [employer]ED TRUCK DRIVER. At this time, recommen d puree diet [...] monitoring;Patient/Family education; Assessment for upgrade Dysphagia Goals Half-Way Goals Safe/efficient oral intake Pt will have safe/efficient oral intake Thin liquids;Mechanical soft diet;With min cues;Ne w/revised goal Short Term Goals Tolerate liquid consistency Pt will tolerate tolerate liquid consistency [place] thick liquids;with 1:1 supervision;New /revised goal onver elder Transaction, Provider Unknown - 05/14/2016 9:12 AM PST Therapy Progress Note by Zenon Schaeffer PT at 05/14/16911 Author: Zenon Schaeffer PT Service: Physical Medicine and Rehab Author Type: Physical Therapist Filed: 05/14/16 1556 Date of Service: 05/14/16911 Status: Signed Gate Mortiser Operator: Zenon Schaeffer PT (Physical Therapist) 05/14/16911 PT [...] 0557 Date of Service: 05/14/16556 Status: Signed Gate Mortiser Operator: Iggy Lee RPH (Pharmacist) Pharmacy will renal [...] | | | Fingerstick | performed at [facility];[address] | | LAB | | | | [address];[place], [place] | | | | | | [address] | | | | + + + [...] | | | Fingerstick | performed at [facility];[address] | | LAB | | | | [address];[place], [place] | | | | | | [address] | | | | + + + [...] | | | Fingerstick | performed at [facility];[address] | | LAB | | | | [place] [address];[place] | | | | | | [address] | | | | + + + [...] | | | Fingerstick | performed at [facility];[address] | | LAB | | | | [place] [address];[place] | | | | | | [address] | | | | + + + [...] | | | Fingerstick | performed at [facility];[address] | | LAB | | | | [place] [address] | | | | | | [address] | | | | + + + [...] | | | Fingerstick | performed at [facility];[address] | | LAB | | | | [address];[place], [place] | | | | | | [address] | | | | + + + [...] EXTERNAL | | | | performed at [facility], [address] | K/uL | LAB | | | | [address], | | | | | | [place] [address] | | | | + + + + + + | Red Blood | 4.96Comment: Testing | 4.20 - 5.70 | EXTERNAL | | | Cells | performed at [facility], [address] | M/uL | LAB | | | Counted | [address], | | | | | | [place] [address] | | | | + + + + + + | Hemoglobin | 14.1Comment: Testing | 13.2 - 17.0 | EXTERNAL | | | | performed at [facility], [address] | g/dL | LAB | | | | [address], | | | | | | [place], [place] [address] | | | | + + + + + + | Hematocrit, | 40.8Comment: Testing | 39.0 - 50.0 % | EXTERNAL | | | POC | performed at [facility], [address] | | LAB | | | | [address], | | | | | | [place] [address] | | | | + + + + + + | MCV | 82.3Comment: Testing | 80.0 - 100.0 fl | EXTERNAL | | | | performed at [facility], [address] | | LAB | | | | [address], | | | | | | [place] [address] | | | | + + + + + + | MCH | 28.5Comment: Testing | 27.0 - 34.0 pg | EXTERNAL | | | | performed at [facility], [address] | | LAB | | | | [address], | | | | | | [place] [address] | | | | + + + + + + | MCHC | 34.6Comment: Testing | 32.0 - 35.5 | EXTERNAL | | | | performed at [facility], [address] | g/dL | LAB | | | | [address], | | | | | | [place] [address] | | | | + + + + + + | RDW-CV | 42.0Comment: Testing | 37 - 53 fl | EXTERNAL | | | | performed at [facility], [address] | | LAB | | | | [address], | | | | | | [place] [address] | | | | + + + + + + | Platelet | 219Comment: Testing | 150 - 400 K/uL | EXTERNAL | | | Count | performed at [facility], [address] | | LAB | | | Plasma | [address], | | | | | | [place] [address] | | | | + + + + + + | MPV | 8.6Comment: Testing | fl | EXTERNAL | | | | performed at [facility], [address] | | LAB | | | | [address], | | | | | | [place] [address] | | | | + + + + + + | Differentia | AUTOMATEDComment: | | EXTERNAL | | | l Type | Testing performed at | | LAB | | | | [facility], [address] | | | | | | [place] | | | | | | [address] | | | | + + + + + + | % Segmented | 65.52Comment: Testing | % | EXTERNAL | | | | performed at [facility], [address] | | LAB | | | Neutrophils | [address], | | | | | | [place] [address] | | | | + + + + + + | % | 22.13Comment: Testing | % | EXTERNAL | | | Lymphocytes | performed at [facility], [address] | | LAB | | | | [address], | | | | | | [place] [address] | | | | + + + + + + | % Monocytes | 9.16Comment: Testing | % | EXTERNAL | | | | performed at [facility], [address] | | LAB | | | | [address], | | | | | | [place] [address] | | | | + + + + + + | % | 2.44Comment: Testing | % | EXTERNAL | | | Eosinophils | performed at [facility], [address] | | LAB | | | | [address], | | | | | | [place] [address] | | | | + + + + + + | % Basophils | 0.75Comment: Testing | % | EXTERNAL | | | | performed at [facility], [address] | | LAB | | | | [address], | | | | | | [place] [address] | | | | + + + + + + | Absolute | 6.91Comment: Testing | 1.90 - 7.40 | EXTERNAL | | | Segmented | performed at [facility], [address] | K/uL | LAB | | | Neutrophils | [address], | | | | | | [place] [address] | | | | + + + + + + | Absolute | 2.33Comment: Testing | 1.00 - 3.90 | EXTERNAL | | | Lymphocytes | performed at [facility], [address] | K/uL | LAB | | | | [address], | | | | | | [place] [address] | | | | + + + + + + | Absolute | 0.97 (H)Comment: Testing | 0.00 - 0.80 | EXTERNAL | | | Monocytes | performed at [facility], [address] | K/uL | LAB | | | | [address], | | | | | | [place] [address] | | | | + + + + + + | Absolute | 0.26Comment: Testing | 0.00 - 0.50 | EXTERNAL | | | Eosinophils | performed at [facility], [address] | K/uL | LAB | | | | [address], | | | | | | [place] [address] | | | | + + + + + + | Absolute | 0.08Comment: Testing | 0.00 - 0.10 | EXTERNAL | | | Basophils | performed at [facility], [address] | K/uL | LAB | | | | [address], | | | | | | [place] [address] | | | | + + + [...] EXTERNAL | | | | performed at [facility], [address] | | LAB | | | | [address], | | | | | | [place] [address] | | | | + + + [...] EXTERNAL | | | | performed at [facility], [address] | | LAB | | | | [address], | | | | | | [place] [address] | | | | + + + [...] | | | | | [place] [address] | | | | + + + + + + | K | 4.1Comment: Testing | 3.5 - 4.9 | EXTERNAL | | | | performed at [facility], [address] | mmol/L | LAB | | | | [address], | | | | | | [place] [address] | | | | + + + + + + | Cl | 104Comment: Testing | 99 - 109 mmol/L | EXTERNAL | | | | performed at [facility], [address] | | LAB | | | | [address], | | | | | | [place] [address] | | | | + + + + + + | CO2 | 27Comment: Testing | 23 - 32 mmol/L | EXTERNAL | | | | performed at [facility], [address] | | LAB | | | | [address], | | | | | | [place] [address] | | | | + + + + + + | Anion Gap | 12Comment: Testing | 5 - 20 mmol/L | EXTERNAL | | | | performed at [facility], [address] | | LAB | | | | [address], | | | | | | [place] [address] | | | | + + + + + + | Glucose, | 143 (H)Comment: Testing | 65 - 99 mg/dL | EXTERNAL | | | Fasting | performed at [facility], [address] | | LAB | | | | [address], | | | | | | [place] [address] | | | | + + + + + + | BUN | 9Comment: Testing | 8 - 25 mg/dL | EXTERNAL | | | | performed at [facility], [address] | | LAB | | | | [address], | | | | | | [place] [address] | | | | + + + + + + | Creatinine | 0.6 (L)Comment: Testing | 0.70 - 1.30 | EXTERNAL | | | | performed at [facility], [address] | mg/dL | LAB | | | | [address], | | | | | | [place] [address] | | | | + + + + + + | BUN/Creatin | 15Comment: Testing | | EXTERNAL | | | ine Ratio | performed at [facility], [address] | | LAB | | | | [address], | | | | | | [place] [address] | | | | + + + + + + | Calcium | 8.6Comment: Testing | 8.5 - 10.5 | EXTERNAL | | | | performed at [facility], [address] | mg/dL | LAB | | | | [facility], | | | | | | [place] [address] | | | | + + + [...] W | | | | | | [facility], | | | | | | [place] [address] | | | | + + + [...] | | | Fingerstick | performed at [facility];[address] | | LAB | | | | [address];[place] | | | | | | [address] | | | | + + + [...] | | | Fingerstick | performed at [facility];[address] | | LAB | | | | [address];[place], [place] | | | | | | [address] | | | | + + + [...] | | | Fingerstick | performed at [facility];[address] | | LAB | | | | [address];[place], [place] | | | | | | [address] | | | | + + + [...] | | | Fingerstick | performed at [facility];[address] | | LAB | | | | [address];[place], [place] | | | | | | [address] | | | | + + + [...] | | | | [facility], [address] [facility] | | | | | | [place] | | | | | | [address] | | | | + + + + + + | Red Blood | 4.92Comment: Testing | 4.20 - 5.70 | EXTERNAL | | | Cells | performed at [facility], [address] | M/uL | LAB | | | Counted | [address], | | | | | | [place] [address] | | | | + + + + + + | Hemoglobin | 13.9Comment: Testing | 13.2 - 17.0 | EXTERNAL | | | | performed at [facility], [address] | g/dL | LAB | | | | [address], | | | | | | [place] [address] | | | | + + + + + + | Hematocrit, | 40.8Comment: Testing | 39.0 - 50.0 % | EXTERNAL | | | POC | performed at [facility], [address] | | LAB | | | | [address], | | | | | | [place] [address] | | | | + + + + + + | MCV | 83.0Comment: Testing | 80.0 - 100.0 fl | EXTERNAL | | | | performed at [facility], [address] | | LAB | | | | [address], | | | | | | [place] [address] | | | | + + + + + + | MCH | 28.3Comment: Testing | 27.0 - 34.0 pg | EXTERNAL | | | | performed at [facility], [address] | | LAB | | | | [address], | | | | | | [place] [address] | | | | + + + + + + | MCHC | 34.0Comment: Testing | 32.0 - 35.5 | EXTERNAL | | | | performed at [facility], [address] | g/dL | LAB | | | | [address], | | | | | | [place] [address] | | | | + + + + + + | RDW-CV | 42.4Comment: Testing | 37 - 53 fl | EXTERNAL | | | | performed at [facility], [address] | | LAB | | | | [address], | | | | | | [place] [address] | | | | + + + + + + | Platelet | 215Comment: Testing | 150 - 400 K/uL | EXTERNAL | | | Count | performed at [facility], [address] | | LAB | | | Plasma | [address], | | | | | | [place] [address] | | | | + + + + + + | MPV | 8.5Comment: Testing | fl | EXTERNAL | | | | performed at [facility], [address] | | LAB | | | | [address], | | | | | | [place] [address] | | | | + + + + + + | Differentia | AUTOMATEDComment: | | EXTERNAL | | | l Type | Testing performed at | | LAB | | | | [facility], [address] | | | | | | [place] | | | | | | [address] | | | | + + + + + + | % Segmented | 70.19Comment: Testing | % | EXTERNAL | | | | performed at [facility], [address] | | LAB | | | Neutrophils | [address], | | | | | | [place] [address] | | | | + + + + + + | % | 17.93Comment: Testing | % | EXTERNAL | | | Lymphocytes | performed at [facility], [address] | | LAB | | | | [address], | | | | | | [place] [address] | | | | + + + + + + | % Monocytes | 8.97Comment: Testing | % | EXTERNAL | | | | performed at [facility], [address] | | LAB | | | | [address], | | | | | | [place] [address] | | | | + + + + + + | % | 2.27Comment: Testing | % | EXTERNAL | | | Eosinophils | performed at [facility], [address] | | LAB | | | | [address], | | | | | | [place] [address] | | | | + + + + + + | % Basophils | 0.64Comment: Testing | % | EXTERNAL | | | | performed at [facility], [address] | | LAB | | | | [address], | | | | | | [place] [address] | | | | + + + + + + | Absolute | 7.86 (H)Comment: Testing | 1.90 - 7.40 | EXTERNAL | | | Segmented | performed at [facility], [address] | [address] | LAB | | | Neutrophils | [address], | | | | | | [place] [address] | | | | + + + + + + | Absolute | 2.01Comment: Testing | 1.00 - 3.90 | EXTERNAL | | | Lymphocytes | performed at [facility], [address] | K/uL | LAB | | | | [address], | | | | | | [place] [address] | | | | + + + + + + | Absolute | 1.01 (H)Comment: Testing | 0.00 - 0.80 | EXTERNAL | | | Monocytes | performed at [facility], [address] | [address]/uL | LAB | | | | [address], | | | | | | [place] [address] | | | | + + + + + + | Absolute | 0.25Comment: Testing | 0.00 - 0.50 | EXTERNAL | | | Eosinophils | performed at [facility], [address] | K/uL | LAB | | | | [address], | | | | | | [place] [address] | | | | + + + + + + | Absolute | 0.07Comment: Testing | 0.00 - 0.10 | EXTERNAL | | | Basophils | performed at [facility], [address] | K/uL | LAB | | | | [address], | | | | | | [place] [address] | | | | + + + [...] EXTERNAL | | | | performed at [facility], [address] | | LAB | | | | [address], | | | | | | [place] [address] | | | | + + + [...] EXTERNAL | | | | performed at [facility], [address] | | LAB | | | | [address], | | | | | | [place] [address] | | | | + + + [...] | | | | | [place] [address] | | | | + + + + + + | K | 3.9Comment: Testing | 3.5 - 4.9 | EXTERNAL | | | | performed at [facility], [address] | mmol/L | LAB | | | | [address], | | | | | | [place] [address] | | | | + + + + + + | Cl | 103Comment: Testing | 99 - 109 mmol/L | EXTERNAL | | | | performed at [facility], [address] | | LAB | | | | [address], | | | | | | [place] [address] | | | | + + + + + + | CO2 | 25Comment: Testing | 23 - 32 mmol/L | EXTERNAL | | | | performed at [facility], [address] | | LAB | | | | [address], | | | | | | [place] [address] | | | | + + + + + + | Anion Gap | 15Comment: Testing | 5 - 20 mmol/L | EXTERNAL | | | | performed at [facility], [address] | | LAB | | | | [address], | | | | | | [place] [address] | | | | + + + + + + | Glucose, | 132 (H)Comment: Testing | 65 - 99 mg/dL | EXTERNAL | | | Fasting | performed at [facility], [address] | | LAB | | | | [address], | | | | | | [place] [address] | | | | + + + + + + | BUN | 9Comment: Testing | 8 - 25 mg/dL | EXTERNAL | | | | performed at [facility], [address] | | LAB | | | | [address], | | | | | | [place] [address] | | | | + + + + + + | Creatinine | 0.5 (L)Comment: Testing | 0.70 - 1.30 | EXTERNAL | | | | performed at [facility], [address] | mg/dL | LAB | | | | [address], | | | | | | [place] [address] | | | | + + + + + + | BUN/Creatin | 18Comment: Testing | | EXTERNAL | | | ine Ratio | performed at [facility], [address] | | LAB | | | | [address], | | | | | | [place] [address] | | | | + + + + + + | Calcium | 8.4 (L)Comment: Testing | 8.5 - 10.5 | EXTERNAL | | | | performed at [facility], [address] | mg/dL | LAB | | | | [address], | | | | | | [place] [address] | | | | + + + + + + | Protein, | 6.0 (L)Comment: Testing | 6.3 - 8.2 g/dL | EXTERNAL | | | Total | performed at [facility], [address] | | LAB | | | | [address], | | | | | | [place] [address] | | | | + + + + + + | Albumin | 3.0 (L)Comment: Testing | 3.3 - 4.8 g/dL | EXTERNAL | | | | performed at [facility], [address] | | LAB | | | | [address], | | | | | | [place] [address] | | | | + + + + + + | Globulin | 3.0Comment: Testing | 1.3 - 4.9 g/dL | EXTERNAL | | | | performed at [facility], [address] | | LAB | | | | [address], | | | | | | [place] [address] | | | | + + + + + + | A/G Ratio | 1.0Comment: Testing | 1.0 - 2.4 | EXTERNAL | | | | performed at [facility], [address] | | LAB | | | | [address], | | | | | | [place] [address] | | | | + + + + + + | Bilirubin | 1.4Comment: Testing | 0.1 - 1.5 mg/dL | EXTERNAL | | | Total | performed at [facility], [address] | | LAB | | | | [address], | | | | | | [place] [address] | | | | + + + + + + | ALP, | 77Comment: Testing | 35 - 115 U/L | EXTERNAL | | | External | performed at [facility], [address] | | LAB | | | | [address], | | | | | | [place] [address] | | | | + + + + + + | AST | 14Comment: Testing | 10 - 45 U/L | EXTERNAL | | | | performed at [facility], [address] | | LAB | | | | [address], | | | | | | [place] [address] | | | | + + + + + + | ALT | 13Comment: Testing | 10 - 65 U/L | EXTERNAL | | | | performed at [facility], [address] | | LAB | | | | [address], | | | | | | [place] [address] | | | | + + + [...] | | | | | [place] [address] | | | | + + + [...] | | | Fingerstick | performed at [facility];[address] | | LAB | | | | [address];[place] | | | | | | [address] | | | | + + + [...] | | | Fingerstick | performed at [facility];[address] | | LAB | | | | [address];[place], [place] | | | | | | [address] | | | | + + + [...] | | to suboptimal images. MEASUREMENTS Assembly Line Supervisor: | | | KVW Authenticated by: Aleksandar [...] to suboptimal images. MEASUREMENTS | | Assembly Line Supervisor: ELIZABEHTuthenticated by: Aleksandar DotsonReport Date/Time: 05-16-2016 20:59:22 | [...] |MEASUREMENTS | | | | | |Assembly Line Supervisor: MARILUW | |Authenticated by: Aleksandar Dotson | [...] | | | Fingerstick | performed at [facility];[address] | | LAB | | | | [place] | | | | | | [address] | | | | + + + [...] was also examined | | | with [employer] 3D software for evaluation of the cerebral [...] Conversion - 11/02/2018 6:55 AM PDT REAGAN [id number] years MaleCTA | | HEAD NECK W [...] The data set was also examined with [employer] 3[employer] software for evaluation of the cerebral [...] | | | | [facility], [address] [facility] | | | | | | [place] | | | | | | [address] | | | | + + + + + + | Red Blood | 4.77Comment: Testing | 4.20 - 5.70 | EXTERNAL | | | Cells | performed at [facility], [address] | M/uL | LAB | | | Counted | [facility] | | | | | | [place] [address] | | | | + + + + + + | Hemoglobin | 13.4Comment: Testing | 13.2 - 17.0 | EXTERNAL | | | | performed at [facility], [address] | g/dL | LAB | | | | [address], | | | | | | [place] [address] | | | | + + + + + + | Hematocrit, | 39.1Comment: Testing | 39.0 - 50.0 % | EXTERNAL | | | POC | performed at [facility], [address] | | LAB | | | | [address], | | | | | | [place] [address] | | | | + + + + + + | MCV | 82.0Comment: Testing | 80.0 - 100.0 fl | EXTERNAL | | | | performed at [facility], [address] | | LAB | | | | [address], | | | | | | [place] [address] | | | | + + + + + + | MCH | 28.0Comment: Testing | 27.0 - 34.0 pg | EXTERNAL | | | | performed at [facility], [address] | | LAB | | | | [address], | | | | | | [place] [address] | | | | + + + + + + | MCHC | 34.1Comment: Testing | 32.0 - 35.5 | EXTERNAL | | | | performed at [facility], [address] | g/dL | LAB | | | | [address], | | | | | | [place] [address] | | | | + + + + + + | RDW-CV | 42.9Comment: Testing | 37 - 53 fl | EXTERNAL | | | | performed at [facility], [address] | | LAB | | | | [address], | | | | | | [place] [address] | | | | + + + + + + | Platelet | 238Comment: Testing | 150 - 400 K/uL | EXTERNAL | | | Count | performed at [facility], [address] | | LAB | | | Plasma | [address], | | | | | | [place] [address] | | | | + + + + + + | MPV | 8.8Comment: Testing | fl | EXTERNAL | | | | performed at [facility], [address] | | LAB | | | | [address], | | | | | | [place] [address] | | | | + + + + + + | Differentia | AUTOMATEDComment: | | EXTERNAL | | | l Type | Testing performed at | | LAB | | | | [facility], [address] | | | | | | [place] | | | | | | [address] | | | | + + + + + + | % Segmented | 68.92Comment: Testing | % | EXTERNAL | | | | performed at [facility], [address] | | LAB | | | Neutrophils | [address], | | | | | | [place] [address] | | | | + + + + + + | % | 18.94Comment: Testing | % | EXTERNAL | | | Lymphocytes | performed at [facility], [address] | | LAB | | | | [address], | | | | | | [place] [address] | | | | + + + + + + | % Monocytes | 10.32Comment: Testing | % | EXTERNAL | | | | performed at [facility], [address] | | LAB | | | | [address], | | | | | | [place] [address] | | | | + + + + + + | % | 1.25Comment: Testing | % | EXTERNAL | | | Eosinophils | performed at [facility], [address] | | LAB | | | | [address], | | | | | | [place] [address] | | | | + + + + + + | % Basophils | 0.57Comment: Testing | % | EXTERNAL | | | | performed at [facility], [address] | | LAB | | | | [address], | | | | | | [place] [address] | | | | + + + + + + | Absolute | 8.86 (H)Comment: Testing | 1.90 - 7.40 | EXTERNAL | | | Segmented | performed at [facility], [address] | K/uL | LAB | | | Neutrophils | [address], | | | | | | [place] [address] | | | | + + + + + + | Absolute | 2.44Comment: Testing | 1.00 - 3.90 | EXTERNAL | | | Lymphocytes | performed at [facility], [address] | [address] | LAB | | | | [address], | | | | | | [place] [address] | | | | + + + + + + | Absolute | 1.33 (H)Comment: Testing | 0.00 - 0.80 | EXTERNAL | | | Monocytes | performed at [facility], [address] | [address] | LAB | | | | [address], | | | | | | [place] [address] | | | | + + + + + + | Absolute | 0.16Comment: Testing | 0.00 - 0.50 | EXTERNAL | | | Eosinophils | performed at [facility], [address] | [address] | LAB | | | | [address], | | | | | | [place] [address] | | | | + + + + + + | Absolute | 0.07Comment: Testing | 0.00 - 0.10 | EXTERNAL | | | Basophils | performed at [facility], [address] | [address] | LAB | | | | [address], | | | | | | [place] [address] | | | | + + + [...] | | | Fingerstick | performed at [facility];[address] | | LAB | | | | [address];[place], [place] | | | | | | [address] | | | | + + + [...] | | performed at [facility], [address] | | | | | | [address], | | | | | | [place] [address] | | | | + + + [...] W | | | | | | [facility], | | | | | | [place] [address] | | | | + + + [...] | | | | | [place] [address] | | | | + + + + + + | K | 4.2Comment: SPECIMEN | 3.5 - 4.9 | EXTERNAL | | | | SLIGHTLY | mmol/L | LAB | | | | HEMOLYZEDTesting | | | | | | performed at [facility], [address] | | | | | | [address], | | | | | | [place] [address] | | | | + + + + + + | Cl | 104Comment: Testing | 99 - 109 mmol/L | EXTERNAL | | | | performed at [facility], [address] | | LAB | | | | [address], | | | | | | [place] [address] | | | | + + + + + + | CO2 | 25Comment: Testing | 23 - 32 mmol/L | EXTERNAL | | | | performed at [facility], [address] | | LAB | | | | [address], | | | | | | [place] [address] | | | | + + + + + + | Anion Gap | 14Comment: Testing | 5 - 20 mmol/L | EXTERNAL | | | | performed at [facility], [address] | | LAB | | | | [address], | | | | | | [place] [address] | | | | + + + [...] | | | | | [place] [address] | | | | + + + [...] | | | | | [place] [address] | | | | + + + + + + | BUN/Creatin | 13Comment: Testing | | EXTERNAL | | | ine Ratio | performed at [facility], [address] | | LAB | | | | [address], | | | | | | [place] [address] | | | | + + + + + + | Calcium | 8.5Comment: Testing | 8.5 - 10.5 | EXTERNAL | | | | performed at [facility], [address] | mg/dL | LAB | | | | [address], | | | | | | [place] [address] | | | | + + + + + + | Protein, | 5.8 (L)Comment: Testing | 6.3 - 8.2 g/dL | EXTERNAL | | | Total | performed at [facility], [address] | | LAB | | | | [address], | | | | | | [place] [address] | | | | + + + + + + | Albumin | 2.8 (L)Comment: Testing | 3.3 - 4.8 g/dL | EXTERNAL | | | | performed at [facility], [address] | | LAB | | | | [address], | | | | | | [place] [address] | | | | + + + + + + | Globulin | 3.0Comment: Testing | 1.3 - 4.9 g/dL | EXTERNAL | | | | performed at [facility], [address] | | LAB | | | | [address], | | | | | | [place] [address] | | | | + + + + + + | A/G Ratio | 0.9 (L)Comment: Testing | 1.0 - 2.4 | EXTERNAL | | | | performed at [facility], [address] | | LAB | | | | [address], | | | | | | [place] [address] | | | | + + + + + + | Bilirubin | 1.7 (H)Comment: SPECIMEN | 0.1 - 1.5 mg/dL | EXTERNAL | | | Total | SLIGHTLY | | LAB | | | | HEMOLYZEDTesting | | | | | | performed at [facility], [address] | | | | | | [address], | | | | | | [place] [address] | | | | + + + + + + | ALP, | 77Comment: Testing | 35 - 115 U/L | EXTERNAL | | | External | performed at [facility], [address] | | LAB | | | | [address], | | | | | | [place] [address] | | | | + + + + + + | AST | 18Comment: SPECIMEN | 10 - 45 U/L | EXTERNAL | | | | SLIGHTLY | | LAB | | | | HEMOLYZEDTesting | | | | | | performed at [facility], [address] | | | | | | [address], | | | | | | [place] [address] | | | | + + + + + + | ALT | 15Comment: SPECIMEN | 10 - 65 U/L | EXTERNAL | | | | SLIGHTLY | | LAB | | | | HEMOLYZEDTesting | | | | | | performed at [facility], [address] | | | | | | [address], | | | | | | [place] [address] | | | | + + + [...] | | | | | [place] [address] | | | | + + + [...] | | | Fingerstick | performed at [facility];[address] | | LAB | | | | [address];[place], [place] | | | | | | [address] | | | | + + + [...] | | | Fingerstick | performed at [facility];[address] | | LAB | | | | [address];[place] | | | | | | [address] | | | | + + + [...] | | | | | [place] [address] | | | | + + + [...] | | | Fingerstick | performed at [facility];[address] | | LAB | | | | [address];[place] | | | | | | [address] | | | | + + + [...] Performed At | + + + | [facility] BRAIN WO AND MRA HEAD 05/15/2016 10:47 AM | | | HISTORY: Stroke. Status post TPA administration. TECHNIQUE: | | | Multiplanar MR imaging was performed through the brain without | | | gadolinium. 3-D ayqg-jq-abyieu MR angiography was also performed to | [...] Johnson, Rad Conversion - 11/02/2018 6:55 AM [facility] BRAIN WO AND MRA | | HEAD05/15/2016 10:47 AM HISTORY:Stroke. Status post TPA administration. | | TECHNIQUE:Multiplanar MR imaging was performed through the brain without gadolinium. 3-D | | uxwj-cz-zkneos MR angiography was also performed to the [...] | | | Fingerstick | performed at [facility];[address] | | LAB | | | | [address];[place] | | | | | | [address] | | | | + + + [...] | | | Fingerstick | performed at [facility];[address] | | LAB | | | | [address];[place] | | | | | | [address] | | | | + + + [...] | | | Fingerstick | performed at [facility];[address] | | LAB | | | | [address];[place], [place] | | | | | | [address] | | | | + + + [...] | | | Fingerstick | performed at [facility];[address] | | LAB | | | | [address];[place] | | | | | | [address] | | | | + + + [...] [facility] | | | | | | [place] | | | | | | [address] | | | | + + + + + + | Red Blood | 5.01Comment: Testing | 4.20 - 5.70 | EXTERNAL | | | Cells | performed at [facility], [address] | M/uL | LAB | | | Counted | [address], | | | | | | [place] [address] | | | | + + + + + + | Hemoglobin | 14.0Comment: Testing | 13.2 - 17.0 | EXTERNAL | | | | performed at [facility], [address] | g/dL | LAB | | | | [address], | | | | | | [place] [address] | | | | + + + + + + | Hematocrit, | 40.8Comment: Testing | 39.0 - 50.0 % | EXTERNAL | | | POC | performed at [facility], [address] | | LAB | | | | [address], | | | | | | [place] [address] | | | | + + + + + + | MCV | 81.5Comment: Testing | 80.0 - 100.0 fl | EXTERNAL | | | | performed at [facility], [address] | | LAB | | | [address], | | | | | | [place] [address] | | | | + + + + + + | MCH | 27.9Comment: Testing | 27.0 - 34.0 pg | EXTERNAL | | | | performed at [facility], [address] | | LAB | | | | [address], | | | | | | [place] [address] | | | | + + + + + + | MCHC | 34.2Comment: Testing | 32.0 - 35.5 | EXTERNAL | | | | performed at [facility], [address] | g/dL | LAB | | | | [address], | | | | | | [place] [address] | | | | + + + + + + | RDW-CV | 42.0Comment: Testing | 37 - 53 fl | EXTERNAL | | | | performed at [facility], [address] | | LAB | | | | [address], | | | | | | [place] [address] | | | | + + + + + + | Platelet | 257Comment: Testing | 150 - 400 K/uL | EXTERNAL | | | Count | performed at [facility], [address] | | LAB | | | Plasma | [address], | | | | | | [place] [address] | | | | + + + + + + | MPV | 8.4Comment: Testing | fl | EXTERNAL | | | | performed at [facility], [address] | | LAB | | | | [address], | | | | | | [place] [address] | | | | + + + + + + | Differentia | AUTOMATEDComment: | | EXTERNAL | | | l Type | Testing performed at | | LAB | | | | [facility], [address] | | | | | | [place] | | | | | | [address] | | | | + + + + + + | % Segmented | 72.88Comment: Testing | % | EXTERNAL | | | | performed at [facility], [address] | | LAB | | | Neutrophils | [address], | | | | | | [place], [place] [address] | | | | + + + + + + | % | 17.64Comment: Testing | % | EXTERNAL | | | Lymphocytes | performed at [facility], [address] | | LAB | | | | [address], | | | | | | [place], [place] [address] | | | | + + + + + + | % Monocytes | 8.16Comment: Testing | % | EXTERNAL | | | | performed at [facility], [address] | | LAB | | | | [address], | | | | | | [place] [address] | | | | + + + + + + | % | 1.06Comment: Testing | % | EXTERNAL | | | Eosinophils | performed at [facility], [address] | | LAB | | | | [address], | | | | | | [place] [address] | | | | + + + + + + | % Basophils | 0.26Comment: Testing | % | EXTERNAL | | | | performed at [facility], [address] | | LAB | | | | [address], | | | | | | [place] [address] | | | | + + + + + + | Absolute | 10.84 (H)Comment: | 1.90 - 7.40 | EXTERNAL | | | Segmented | Testing performed at | K/uL | LAB | | | Neutrophils | [facility], [address] | | | | | | [place] | | | | | | [address] | | | | + + + + + + | Absolute | 2.62Comment: Testing | 1.00 - 3.90 | EXTERNAL | | | Lymphocytes | performed at [facility], [address] | K/uL | LAB | | | | [address], | | | | | | [place] [address] | | | | + + + + + + | Absolute | 1.21 (H)Comment: Testing | 0.00 - 0.80 | EXTERNAL | | | Monocytes | performed at [facility], [address] | K/uL | LAB | | | | [address], | | | | | | [place] [address] | | | | + + + + + + | Absolute | 0.16Comment: Testing | 0.00 - 0.50 | EXTERNAL | | | Eosinophils | performed at [facility], [address] | K/uL | LAB | | | | [address], | | | | | | [place] [address] | | | | + + + + + + | Absolute | 0.04Comment: Testing | 0.00 - 0.10 | EXTERNAL | | | Basophils | performed at [facility], [address] | K/uL | LAB | | | | [address], | | | | | | [place] [address] | | | | + + + [...] EXTERNAL | | | | performed at [facility], [address] | | LAB | | | | [address], | | | | | | [place] [address] | | | | + + + [...] EXTERNAL | | | | performed at [facility], [address] | | LAB | | | | [address], | | | | | | [place] [address] | | | | + + + [...] | EXTERNAL | | | A1c | Singaporean Diabetes | | LAB | | | [...] | | performed at [facility], [address] | | | | | | [address], | | | | | | [place] [address] | | | | + + + [...] | | performed at [facility], [address] | | | | | | [address], | | | | | | [place] [address] | | | | + + + [...] EXTERNAL | | | | performed at [facility], [address] | | LAB | | | | [address], | | | | | | [place] [address] | | | | + + + + + + | Triglycerid | 152 (H)Comment: Testing | mg/dL | EXTERNAL | | | es | performed at [facility], [address] | | LAB | | | | [address], | | | | | | [place] [address] | | | | + + + + + + | HDL | 31 (L)Comment: Testing | mg/dL | EXTERNAL | | | | performed at [facility], [address] | | LAB | | | | [address], | | | | | | [place] [address] | | | | + + + + + + | LDL, | 47Comment: Testing | mg/dL | EXTERNAL | | | Calculated | performed at [facility], [address] | | LAB | | | | [address], | | | | | | [place] [address] | | | | + + [...] | | | | | [place] [address] | | | | + + + + + + | K | 3.3 (L)Comment: Testing | 3.5 - 4.9 | EXTERNAL | | | | performed at [facility], [address] | mmol/L | LAB | | | | [address], | | | | | | [place] [address] | | | | + + + + + + | Cl | 104Comment: Testing | 99 - 109 mmol/L | EXTERNAL | | | | performed at [facility], [address] | | LAB | | | | [address], | | | | | | [place] [address] | | | | + + + + + + | CO2 | 25Comment: Testing | 23 - 32 mmol/L | EXTERNAL | | | | performed at [facility], [address] | | LAB | | | | [address], | | | | | | [place] [address] | | | | + + + + + + | Anion Gap | 12Comment: Testing | 5 - 20 mmol/L | EXTERNAL | | | | performed at [facility], [address] | | LAB | | | | [address], | | | | | | [place] [address] | | | | + + + + + + | Glucose, | 125 (H)Comment: Testing | 65 - 99 mg/dL | EXTERNAL | | | Fasting | performed at [facility], [address] | | LAB | | | | [address], | | | | | | [place] [address] | | | | + + + + + + | BUN | 11Comment: Testing | 8 - 25 mg/dL | EXTERNAL | | | | performed at [facility], [address] | | LAB | | | | [address], | | | | | | [place] [address] | | | | + + + + + + | Creatinine | 0.7Comment: Testing | 0.70 - 1.30 | EXTERNAL | | | | performed at [facility], [address] | mg/dL | LAB | | | | [address], | | | | | | [place] [address] | | | | + + + + + + | BUN/Creatin | 16Comment: Testing | | EXTERNAL | | | ine Ratio | performed at [facility], [address] | | LAB | | | | [address], | | | | | | [place] [address] | | | | + + + + + + | Calcium | 8.3 (L)Comment: Testing | 8.5 - 10.5 | EXTERNAL | | | | performed at [facility], [address] | mg/dL | LAB | | | | [address], | | | | | | [place] [address] | | | | + + + [...] [address], | | | | | | [place] [address] | | | | + + + [...] | | | Fingerstick | performed at [facility];[address] | | LAB | | | | [address];[place], [place] | | | | | | [address] | | | | + + + [...] | | | Fingerstick | performed at [facility];[address] | | LAB | | | | [address];[place], [place] | | | | | | [address] | | | | + + + [...] | | | Fingerstick | performed at [facility];[address] | | LAB | | | | [address];[place] | | | | | | [address] | | | | + + + [...] | | | Fingerstick | performed at [facility];[address] | | LAB | | | | [address];[place], [place] | | | | | | [address] | | | | + + + [...] | | | Fingerstick | performed at [facility];[address] | | LAB | | | | [address];[place] | | | | | | [address] | | | | + + + [...] | | | Fingerstick | performed at [facility];[address] | | LAB | | | | [address];[place] | | | | | | [address] | | | | + + + [...] | | | Fingerstick | performed at [facility];[address] | | LAB | | | | [address];[place] | | | | | | [address] | | | | + + + [...] | | | Fingerstick | performed at [facility];[address] | | LAB | | | | [address];[place] | | | | | | [address] | | | | + + + [...] | | | Fingerstick | performed at [facility];[address] | | LAB | | | | [address];[place], [place] | | | | | | [address] | | | | + + + [...] | | | Fingerstick | performed at [facility];[address] | | LAB | | | | [address];[place], [place] | | | | | | [address] | | | | + + + [...] | | | Fingerstick | performed at [facility];[address] | | LAB | | | | [address];[place] | | | | | | [address] | | | | + + + [...] | | | Fingerstick | performed at [facility];[address] | | LAB | | | | [address];[place] | | | | | | [address] | | | | + + + [...] | | | Fingerstick | performed at [facility];[address] | | LAB | | | | [address];[place] | | | | | | [address] | | | | + + + [...] | | | Fingerstick | performed at [facility];[address] | | LAB | | | | [address];[place] | | | | | | [address] | | | | + + + [...] | | | Fingerstick | performed at [facility];[address] | | LAB | | | | [address];[place] | | | | | | [address] | | | | + + + [...] | | | Fingerstick | performed at [facility];[address] | | LAB | | | | [address];[place], [place] | | | | | | [address] | | | | + + + [...] | | Jefe: 0.48 m/s TV Dec Stone: 3.62 m/s2 TV Dec Time: 136.62 | | | ms TV E Jefe: 0.49 m/s TV E/A Ratio: 1.02 Assembly Line Supervisor: TRINY | | | Authenticated by: Aleksandar Westbrookdeerfield Report Date/Time: 05-14-2016 | | | 17:14:37 [...] | Index (A-L): 25.78 ml/m2LAAs A2C: 20.06 gw2SMEJV A-L A2C: 56.80 mlLAESV MOD A2C: | | 53.98 mlLALs A2C: 6.01 cmLAAs A4C: 18.67 by3LQCPQ A-L A4C: 45.70 mlLAESV MOD A4C: | | 43.69 mlLALs A4C: 6.47 cmHR: 94.31 BPMAV maxP.45 mmHgAV meanP.54 | | mmHgAV Vmax: 1.61 m/Abilio Vmean: 1.22 m/Abilio VTI: 27.30 cmAVA Vmax: 2.68 cm2AVA | | (VTI): 2.69 lh7HQAY Vmax: 0.00 cm2/m2AVAI (VTI): 0.00 cm2/m2LVCI Dopp: 3.08 | | l/nfxz6QKMC Dopp: 6.31 l/minHR: 85.80 BPMLVOT maxP.48 mmHgLVOT meanP.11 | | mmHgLVSI Dopp: 35.92 ml/m2LVSV Dopp: 73.65 mlLVOT Vmax: 1.36 m/sLVOT Vmean: 0.96 | | m/sLVOT VTI: 23.22 cmMCO: 392.13 msMV A Jefe: 1.50 m/sMV DecT: 213.25 msMV E | | Jefe: 0.88 m/sMV E/A Ratio: 0.59MV PHT: 74.39 msMVA By PHT: 2.95 dt3Kwrecl e': | | 0.05 m/sSeptal E/e': 14.80RAP: 8 mmHgTV A Jefe: 0.48 m/sTV Dec Stone: 3.62 m/s2TV | | Dec Time: 136.62 msTV E Jefe: 0.49 m/sTV E/A Ratio: 1.02 Assembly Line Supervisor: | | GDAuthenticated by: [facility]ksand[facility] Date/Time: 05-14-2016 17:14:37 IMPRESSION: 1. | [...] A Jefe: 0.48 m/s | |TV Dec Stone: 3.62 m/s2 | |TV Dec Time: 136.62 ms | |TV E Jefe: 0.49 m/s | |TV E/A Ratio: 1.02 | | | |Assembly Line Supervisor: TRINY | |Authenticated by: Aleksandar Dotson | [...] EXTERNAL LAB | | Testing performed at [address];[place] [address] MRSA PCR | | | NEGATIVE Testing performed at | | | [address];[place] [address] | | + + + + +---------+ [...] | | | Fingerstick | performed at [facility];[address] | | LAB | | | [address];[place], [place] | | | | | | [address] | | | | + + + [...] + + | Historically converted procedure from [facility] Epic environment | EXTERNAL LAB | + [...]
--- OUTSIDE RECORDS SUMMARY | ~2019-08-08 | XMS | Encounter Summary ---
Demographics + + + | Address | [address] | | | [place] [address] | + + + | Home Phone | | + + + | Preferred Language | Unknown | + + + | Marital Status | | + + + | Congregational Affiliation | [id number] | + + + | Race | Unknown | + + + | Ethnic Group | Unknown | + + + Author + + + | Author | [facility] | | | and [place] | + + + | Organization | [facility] | | | and [place] | + + + | Address | Unknown | + + + | Phone | Unavailable | + + + Support + + + + + | Name | Relationship | Address | Phone | + + + + + | Jessica Shepard | ECON | [address] | | | | | [place] | | | | | [address] | | + + + + + | [place] | ECON | Unknown | | + + + + + Care Team Providers + +------+ + | Care Micro Computer Data Processor Name | Role | Phone | + [...] + + | 04/25/ | Documentati | [facility] | Dylan Gaston, | Results (CBC, CMP, | | 2020 | on | INFECTIOUS DISEASE | Hero Malave MD | ESR, CRP, Vanco | | | | [address] | [address] | [place]) | | | | [place], [place] | [place] [address] | | | | | [address] | [phone] | | | | | [phone] | | | +--------+ + + + [...] of this encounter Progress Notes Kady Westbrook, Net Trainer - 04/25/2019 1:18 PM PSTReceived lab results [...] | REFERENCE LAB | [address] | [place], [place] | [phone] | | [facility] | | [address] | | + + + + + [...] | REFERENCE LAB | [address] | [place], [place] | [phone] | | [facility] | | [address] | | + + + + + [...] + + + | REFERENCE LAB | [address] | [place] | [phone] | | [facility] | | [address] | | + + + + + [...] | REFERENCE LAB | [address] | [place] | [phone] | | [facility] | | [address] | | + + + + + [...] + + + | REFERENCE LAB | [address] | [place] | [phone] | | [facility] | | [address] | | + + + + + [...]
--- OUTSIDE RECORDS SUMMARY | ~2019-08-08 | XMS | Encounter Summary ---
Demographics + + + | Address | [address] | | | [place] [address] | + + + | Home Phone [...] + | Jessica Shepard | ECON | [address] | | | | | [place] | | | | | [address] | | + + + + + | Bel Solis | ECON | Unknown | | + + + + + Care Team Providers + +------+ + | Care Trucker Name | Role | Phone | + [...] + + | 05/22/ | Documentati | [facility] | Nimo Westbrook, | Other (*Labs from | 2019 | on | INFECTIOUS DISEASE | Product Marketing Specialist | [facility] | | | | [address] | | 05/21/2019 | | | | [place] | | (CBC,CMP,ESR,CRP,VAN | | | | [address] | | [place])) | | | | [phone] | | | +--------+ + + + [...] as of this encounter Progress Nimo Harley, Product Marketing Specialist - 05/23/2019 3:55 PM PST*Labs from [facility] DOS 04/2019 (CBC,CMP,ESR,CRP,VANCO TROUGH) RECEIVED: 05/23/2019 Labs were abstracted into [employer] and sent to scan. Kaye CMA Tdocumented [...] [address] | [place] | [phone] | | [facility] | | [address] | | + + + + + [...] + + | REFERENCE LAB | [facility] | [place] | [phone] | | [facility] | | [address] | | + + + + + [...] + | REFERENCE LAB | [address] | [place] | [phone] | | [facility] | | [address] | | + + + + + [...] + | REFERENCE LAB | [address] | [place] | [phone] | | [facility] | | [address] | | + + + + + [...] | REFERENCE LAB | [address] [facility] | [place] | [phone] | | [facility] | | [address] | | + + + + + [...]
--- OUTSIDE RECORDS SUMMARY | ~2019-08-08 | XMS | Clinical Summary ---
Demographics + + + | Address | [address] | | | [place] [address] | + + + | Home Phone [...] + | Jessica Shepard | ECON | [address] | | | | | [place] | | | | | [address] | | + + + + + | Bel Solis | ECON | Unknown | | + + + + + Care Team Providers + +------+ + | Care Metal Mover Name | Role | Phone | + [...] automatically from request for surgery | | [id number] | + + + + + | Acute osteomyelitis of calcaneum, right | 07/14/2018 | + + + | Essential hypertension | 11/25/2017 | + + + | Insulin dependent diabetes mellitus | 11/22/2017 | + + + + + | Overview: Problem List Portfolio Manager Utility | + + + + + [...] + + + | Overview: Problem List Portfolio Manager Utility | + + + + + [...] Coordination | | 2019 | | | Skiving Machine Operator | (EOT??); Other (picc | | | | | | d/c) | +--------+ + + + + | 05/22/ | Documentati | Infectious Diseases | Nimo Westbrook, | Other (*Labs from | 2019 | on | | Skiving Machine Operator | [facility] | | | [...] | | | | of right foot ([facility]) | +--------+ + + + + | 05/14/ | Documentati | Infectious Diseases | Nimo Westbrook, | Other (*Labs from | 2019 | on | | Skiving Machine Operator | [facility] | | | [...] from | 2019 | on | | Skiving Machine Operator | [facility] | | | [...] Vasc Epic | | | [place] | [id number] | 10/14/ | [id number] | | [id number]: | | | SCIENTIFIC | [id number] | 2023 | [id number] | | Qty: 1 on 04/11/2019 by Prosper, | | | CHRISTIANO - BSCI | 80 | | 220 / | | Simba Ames [place] | | | | | | /[id number] | | | | | | | | 748 | + +------+--------+ +--------+--------+--------+ | Algrft Cv Saph Vein 80-100cm | | Right: | LEMAITRE | | 09/14/ | [id number] | | - | | Leg | VASCULAR | | 2023 | /[id number] | | [id number] | | | INC - MOE | | | [id number] | | ed: Qty: 1 on 04/18/2019 by | | | | | | [id number] | | Gianluca Robbins MD at [facility] | | | | | | 3002 | | [facility] | | | | | | [...] [address] | [place] | [phone] | | [facility] | | [address] | | + + + + + [...] + | REFERENCE LAB | [address] | [place] | [phone] | | [facility] | | [address] | | + + + + + [...] + + + | REFERENCE LAB | [facility] | [place] | [phone] | | [facility] | | [address] | | + + + + + [...] + + | REFERENCE LAB | [address] [facility] | [place] | [phone] | | [facility] | | [address] | | + + [...] + + | REFERENCE LAB | [address] [facility] | [place] | [phone] | | [facility] | | [address] | | + + + + + [...] + + + | REFERENCE LAB | [address] [facility] | [place] | [phone] | | [place] | | [address] | | + + + + + [...] +--------+ +---------+--------+ | MEDICARE | MEDICA | [id number] | | [phone] | | Medica | | | RE | | 012-Pr | 5 | | re | | | PART A | | esent | | | | | | AND B | | | | | | + +--------+ +--------+ +---------+--------+ | V[employer]ER[employer] ADMIN | [facility] | [id number] | | | | Indemn | | | NS | | 018-Pr | | | ity | | | ADMIN | | esent | | | | | | [place] | | | | | | | | [place] | | | | | | + +--------+ +--------+ +---------+--------+ | MEDICARE | MEDICA | [id number] | | [phone] | | Medica | | | RE | | 012-Pr | 5 | | re | | | PART A | | esent | | | | | | AND B | | | | | | + +--------+ +--------+ +---------+--------+ | MEDICARE | MEDICA | [id number] | | [phone] | | Medica | | | RE | | 012-Pr | 5 | | re | | | PART A | | esent | | | | | | AND B | | | | | | + +--------+ +--------+ +---------+--------+ | | TRICAR | [id number] | | [phone] | | Indemn | | | E [...] Person | Self [birth year] | [address] | | | al/Fam | | 1945 | [phone] | [place] | | | carlos | | | 2 (Home) | [address] | + +--------+ +--------+ + + | Reagan Shepadr | Person | Self | [birth year] | | [address] | | | al/Fam | | 1945 | [phone] | [place] | | | carlos | | | 2 (Home) | [address] | + +--------+ +--------+ + + | Reagan Shepard | Person | Self | [birth year] | [address] | | | al/Fam | | 1945 | [phone] | [place] | | | carlos | | | 2 (Home) | [address] | + +--------+ +--------+ + + Advance Directives + + + + + | Type | Date Recorded | Patient | Explanation | | | | Group Therapist | | + + + + + | Power of | | | | | Top Knitter | | | | + + + [...]
--- OUTSIDE RECORDS SUMMARY | ~2019-08-08 | XMS | Encounter Summary ---
Demographics + + + | Address | [address] | | | [place] [address] | + + + | Home Phone [...] + | Jessica Shepard | ECON | [address] | | | | | [place] | | | | | [address] | | + + + + + | Bel Solis | ECON | Unknown | | + + + + + Care Team Providers + +------+ + | Care Outer Diameter Grinder Tool Name | Role | Phone | + [...] | | | | | [place] [address] | | | | | | [phone] | | | +--------+ + + + [...]
--- OUTSIDE RECORDS SUMMARY | ~2019-08-08 | XMS | Encounter Summary ---
Demographics + + + | Address | [address] | | | [place] [address] | + + + | Home Phone [...] Author | [facility] | | | and [...] + | Jessica Shepard | ECON | [address] | | | | | [place] | | | | | [address] | | + + + + + | Bel Solis | ECON | Unknown | | + + + + + Care Team Providers + +------+ + | Care Fabricating Machine Operator Name | Role | Phone | + +------+ + | Dian Lr NP | PCP | | + +------+ + Encounter Details +--------+ + + + + | Date | Type | Department | Care Team | Description | +--------+ + + + + | 11/26/ | Hospital | [facility] | Diana Toby | | | 2018 | Encounter | MED CTR XRAY [address] | MD [address] | | | | | [place] | [facility] | | | | | [place] [address] | [place] [address] | | | | | [phone] | [phone] | | | | | | | [...]
--- OUTSIDE RECORDS SUMMARY | ~2019-08-08 | XMS | Encounter Summary ---
Demographics + + + | Address | [address] | | | [place] [address] | + + + | Home Phone [...] + | Jessica Shepard | ECON | [address] | | | | | [place] | | | | | [address] | | + + + + + | Bel Solis | ECON | Unknown | | + + + + + Care Team Providers + +------+ + | Care Program Supervisor Name | Role | Phone | [...] + + | 04/25/ | Telephone | [facility] | Ely Mcguire | Other (care | | 2020 | | INFECTIOUS DISEASE | Parminder RN | coordination) | | | | [address] | | | | | | [place], [place] | | | | | | [address] | | | | | | [phone] | | | +--------+ + + + [...]
--- OUTSIDE RECORDS SUMMARY | ~2019-08-08 | XMS | Encounter Summary ---
Demographics + + + | Address | [address] | | | [place] [address] | + + + | Home Phone [...] + | Jessica Shepard | ECON | [address] | | | | | [place] | | | | | [address] | | + + + + + | Bel Solis | ECON | Unknown | | + + + + + Care Team Providers + +------+ + | Care Pta Name | Role | Phone | + +------+ + | Dian Lr NP | PCP | | + +------+ + Encounter Details +--------+ + + + + | Date | Type | Department | Care Team | Description | +--------+ + + + + | 07/31/ | Orders Only | [facility] | Conversion | | | 2019 | | INFECTIOUS DISEASE | Transaction, | | | | | [address] | Provider Unknown | | | | | [place], [place] | | | | | | [address] | (Fax) | | | | | [phone] | | | +--------+ + + + [...]
--- OUTSIDE RECORDS SUMMARY | ~2019-08-08 | XMS | Encounter Summary ---
Demographics + + + | Address | [address] | | | [place] [address] | + + + | Home Phone [...] + | Jessica Shepard | ECON | [address] | | | | | [place] | | | | | [address] | | + + + + + | Bel Solis | ECON | Unknown | | + + + + + Care Team Providers + +------+ + | Care Podiatry Doctor Name | Role | Phone | + [...] + + | 04/25/ | Documentati | [facility] | Dylan Gaston, | Results (CBC, CMP, | | 2020 | on | INFECTIOUS DISEASE | Hero Malave MD | ESR, CRP, [place] | | | | [address] | [address] | Trough) | | | | [place], [place] | [place] [address] | | | | | [address] | [phone] | | | | | [phone] | | | +--------+ + + + [...] of this encounter Progress Notes Kady Westbrook, Medical Social Worker - 04/25/2019 1:18 PM PSTReceived lab results [...] + + | REFERENCE LAB | [address] [facility] | [place], [place] | [phone] | | [facility] | | [address] | | + + + + + [...] + + | REFERENCE LAB | [address] [facility] | [place], [place] | [phone] | | [facility] | | [address] | | + + + + + [...] + + + | REFERENCE LAB | [address] [facility] | [place] | [phone] | | [facility] | | [address] | | + + + + + [...] + + | REFERENCE LAB | [address] [facility] | [place] | [phone] | | [facility] | | [address] | | + + + + + [...] + + + | REFERENCE LAB | [address] [facility] | [place] | [phone] | | [facility] | | [address] | | + + + + + [...]
--- OUTSIDE RECORDS SUMMARY | ~2019-08-08 | XMS | Encounter Summary ---
Demographics + + + | Address | [address] | | | [place] [address] | + + + | Home Phone [...] + | Jessica Shepard | ECON | [address] | | | | | [place] | | | | | [address] | | + + + + + | Bel Solis | ECON | Unknown | | + + + + + Care Team Providers + +------+ + | Care Dairy Farmworker Name | Role | Phone | + [...] + + | 05/15/ | Office | [facility] | Dylan Gaston, | Chronic | | 2020 | Visit | INFECTIOUS DISEASE | Hero Malave MD | osteomyelitis of | | | | [address] | [address] | right foot (HCC) | | | | [place], [place] | [place] [address] | (Primary Dx); Acute | | | | [address] | [phone] | osteomyelitis of | | | | [phone] | | metatarsal bone, | | | [...] Garcia MD - 05/15/2019 3:20 PM PST [facility] Service: Infectious Diseases Outpatient Follow Up Note [...] atory failurewho presents as a transfer from [place] [facility]. Patient is somewhat of a poor historian so the majority of the history is obtained from the record and from the ED physic jacob. Patient had recently been admitted to the [facility] from 03/28/19 to 04/04/19 w here he was treated/diagnosed with systolic heart failure, type 2 DC/NSTEMI, SHAE, ARF. It ap pears that patient [...] on the . Patient was discharged to [facility]. While there patient apparently became decompensated and desaturated into t he 80s so patient was brought the to ED at [facility] again (03/1618). Patient was found to have [...] coverage a call was made to the broadcast correspondent clinical specialty rep here at [facility] (Dr. Jessenia Wallace), who recommended patient [...] Procedure: CYSTOSCOPY; Surgeon: Aleksander Montiel MD; [place] [facility] [place] CHOLECYSTECTOMY FEMORAL-TIBIAL BYPASS GRAFT Right 04/18/2019 Procedure: BYPASS GRAFT FEMORAL-TIBIAL; Surgeon: Gianluca Robbins MD; [place] [facility] HERNIA REPAIR TOE AMPUTATION Right 11/21/2017 Procedure: Amputation Right 5th Metatarsal; Surgeon: Simone Aceves DPM; Location: [facility] SOCIAL HISTORY Social History Socioeconomic History Marital [...] file Gets together: Not on file Attends anabaptist service: Not on file Active member of [...] bacterial infection Gangrene of left foot (HCC) 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
--- OUTSIDE RECORDS SUMMARY | ~2019-08-08 | XMS | Encounter Summary ---
Demographics + + + | Address | [address] | | | [place] [address] | + + + | Home Phone | | + + + | Preferred Language | Unknown | + + + | Marital Status | | + + + | Amish Affiliation | 1076 | + + + | Race | Unknown | + + + | Ethnic Group | Unknown | + + + Author + + + | Author | [facility] | | | and [place] | + + + | Organization | [facility] | | | and [place] | + + + | Address | Unknown | + + + | Phone | Unavailable | + + + Support + + + + + | Name | Relationship | Address | Phone | + + + + + | Jessica Shepard | ECON | [address] | | | | | [place] | | | | | [address] | | + + + + + | Bel Solis | ECON | Unknown | | + + + + + Care Team Providers + +------+ + | Care Refractory Grinder Operator Name | Role | Phone | [...] + + | 07/22/ | Telephone | [facility] | Dylan Gaston, | Other (He is | | 2020 | | INFECTIOUS DISEASE | Hero Malave MD | refusing to come to | | | | [address] | [address] | appointment. He will | | | | [place] | [place] [address] | call us back when | | | | [address] | [phone] | he is ready.) | | | | [phone] | | | +--------+ + + + [...]
--- OUTSIDE RECORDS SUMMARY | ~2019-08-08 | XMS | Encounter Summary ---
Demographics + + + | Address | [address] | | | [place] [address] | + + + | Home Phone [...] + | Jessica Shepard | ECON | [address] | | | | | [place] | | | | | [address] | | + + + + + | Bel Solis | ECON | Unknown | | + + + + + Care Team Providers + +------+ + | Care Diving Supervisor Name | Role | Phone | [...] + + | 04/25/ | Telephone | [facility] | Ely Mcguire | Other (care | | 2020 | | INFECTIOUS DISEASE | Parminder RN | coordination) | | | | [address] | | | | | | [place], [place] | | | | | | [address] | | | | | | [phone] | | | +--------+ + + + [...]
--- OUTSIDE RECORDS SUMMARY | ~2019-08-08 | XMS | Encounter Summary ---
Demographics + + + | Address | [address] | | | [place] [address] | + + + | Home Phone [...] Organization | [facility] | | | and [place] | + + + | Address | Unknown | + + + | Phone | Unavailable | + + + Support + + + + + | Name | Relationship | Address | Phone | + + + + + | Jessica Shepard | ECON | [address] | | | | | [place] | | | | | [address] | | + + + + + | Bel Solis | ECON | Unknown | | + + + + + Care Team Providers + +------+ + | Care Software Release Engineer Name | Role | Phone | + +------+ + | Jamar Manuel MD | PCP | | + +------+ + Encounter Details +--------+ + + + + | Date | Type | Department | Care Team | Description | +--------+ + + + + | 04/10/ | Hospital | [facility] | Aleksander Montiel, | | | 2019 | [facility] | [facility] | MD Nash SMITH | | | | | ULTRASOUND [address] [place], [place] | | | | [address] | [address] | | | | | [place], [place] | [phone] | | | | | [address] | | | | | | [phone] | | | +--------+ + + + [...]
--- OUTSIDE RECORDS SUMMARY | ~2019-08-08 | XMS | Encounter Summary ---
Demographics + + + | Address | [address] | | | [place] [address] | + + + | Home Phone [...] | Organization | [facility] | | | and [place] | + + + | Address | Unknown | + + + | Phone | Unavailable | + + + Support + + + + + | Name | Relationship | Address | Phone | + + + + + | Jessica Shepard | ECON | [address] | | | | | [place] | | | | | [address] | | + + + + + | Bel Solis | ECON | Unknown | | + + + + + Care Team Providers + +------+ + | Care Agricultural Mechanic Name | Role | Phone | [...] + + | 05/08/ | Office | [facility] | Mika Tim, DNP | Peripheral vascular | | 2020 | Visit | VASCULAR SURGERY | [address] | disease (HCC) | | | | [address] | [place] | (Primary Dx) | | | | [place] | [address] | | | | | [address] | | | | | | [phone] | Bhanu Seaman, | | | | | | FRANCY [address] | | | | | | [address] | | | | | | [place] [address] | | | | | | [phone] | | | | | | | [...] Bhanu Maguire PA-C - 05/08/2019 9:30 AM [facility] [address] [place] [address] Office: [phone] DATE OF VISIT: 05/08/2019 PATIENT NAME: Reagan Shepard : 1945; AGE: 74 y.o.; Sex:M PHONE NUMBER: ; ; PROVIDER: Bhanu Seaman PA-C PRIMARY CARE / REFERRING PHYSICIAN: Mika Tim DNP / Jamar Manuel MD / [address] / [place] [address] REASON FOR EVALUATION / CHIEF COMPLAINT: Vascular [...] have been stable. He is staying at [facility] in [place]. Mariaelena allen thinks his wounds are healing. [...] are healing well without signs of infection. [place] intact. Ulcers on right foot in h [...] o bilateral feet ulcers. Follow up with computer repair engineer soon. Return to vascular clinic in 2 [...]
--- OUTSIDE RECORDS SUMMARY | ~2019-08-08 | XMS | Encounter Summary ---
Demographics + + + | Address | [address] | | | [place] [address] | + + + | Home Phone [...] + | Jessica Shepard | ECON | [address] | | | | | [place] | | | | | [address] | | + + + + + | Ble Solis | ECON | Unknown | | + + + + + Care Team Providers + +------+ + | Care Package Line Operator Name | Role | Phone | [...] + + | 05/11/ | Telephone | [facility] | Ely Mcguire | Other (care | | 2020 | | INFECTIOUS DISEASE | ELLIOT Zurita | coordination- | | | | [address] | | vancomycin trough ) | | | | [place] | | | | | | [address] | | | | | | [phone] | | | +--------+ + + + [...]
--- OUTSIDE RECORDS SUMMARY | ~2019-08-08 | XMS | Encounter Summary ---
Demographics + + + | Address | [address] | | | [place] [address] | + + + | Home Phone [...] + | Jessica Shepard | ECON | [address] | | | | | [place] | | | | | [address] | | + + + + + | Bel Solis | ECON | Unknown | | + + + + + Care Team Providers + +------+ + | Care Plaque Maker Name | Role | Phone | + +------+ + | Dian Lr NP | PCP | | + +------+ + Encounter Details +--------+ + + + + | Date | Type | Department | Care Team | Description | +--------+ + + + + | 11/26/ | Hospital | [facility] | Toby Ortiz | Leonel osteomyelitis | | 2018 | Encounter | MED CTR OP INFUSION | MD [address] | of right foot (HCC) | | | | [address] | [facility] | (Primary Dx) | | | | [place] | [place] [address] | | | | | [address] | [phone] | | | | | [phone] | | | +--------+ + + + [...] saline. SBAR report to ELLIOT Ramirez @ [facility] who continues care. Dressing will Need to [...]
--- OUTSIDE RECORDS SUMMARY | ~2019-08-08 | XMS | Encounter Summary ---
Demographics + + + | Address | [address] | | | [place] [address] | + + + | Home Phone [...] | [facility] | | | and [place] | + + + | Organization | [facility] | | | and [place] | + + + | Address | Unknown | + + + | Phone | Unavailable | + + + Support + + + + + | Name | Relationship | Address | Phone | + + + + + | Jessica Shepard | ECON | [address] | | | | | [place] | | | | | [address] | | + + + + + | Bel Solis | ECON | Unknown | | + + + + + Care Team Providers + +------+ + | Care Typer Name | Role | Phone | + [...] + + | 05/22/ | Documentati | [facility] | Nimo Westbrook, | Other (*Labs from | 2019 | on | INFECTIOUS DISEASE | Order Builder | [facility] | | | | [address] | | 05/21/2019 | | | | [place] | | (CBC,CMP,ESR,CRP,VAN | | | | [address] | | [place] TROUGH)) | | | | [phone] | | | +--------+ + + + [...] as of this encounter Progress Nimo Harley, Order Builder - 05/23/2019 3:55 PM PST*Labs from [facility] DOS 04/2019 (CBC,CMP,ESR,CRP,VANCO TROUGH) RECEIVED: 05/23/2019 Labs were abstracted into [facility] and sent to scan. Kaye CMA Tdocumented [...] [address] | [place] | [phone] | | [facility] | | [address] | | + + + + + [...] + + + | REFERENCE LAB | Pending sale to [facility] | [place] | [phone] | | [facility] | | [address] | | + + + + + [...] + | REFERENCE LAB | [address] | [place] | [phone] | | [facility] | | [address] | | + + + + + [...] + | REFERENCE LAB | [address] | [place] | [phone] | | [facility] | | [address] | | + + + + + [...] [facility] | [place] | [phone] | | [facility] | | [address] | | + + + + + [...]
--- OUTSIDE RECORDS SUMMARY | ~2019-08-08 | XMS | Encounter Summary ---
Demographics + + + | Address | [address] | | | [place] [address] | + + + | Home Phone [...] + | Jessica Shepard | ECON | [address] | | | | | [place] | | | | | [address] | | + + + + + | Bel Solis | ECON | Unknown | | + + + + + Care Team Providers + +------+ + | Care Coupon Collection Clerk Name | Role | Phone | [...] + + | 11/21/ | Surgery | [facility] | Simone Aceves, | Amputation Right 5th | | 2018 | | MED CTR OR INTRA OP | DPM [address] | Metatarsal | | | | [address] | [place], [place] | | | | | [place], [place] | [address] | | | | | [address] | [phone] | | | | | [phone] | | | +--------+---------+ + + + [...] other anesthesia was used during the case. [facility] lower extremity was then scrubbed, [...] -PT/OT ordered Code Status: Full Code [facility] Condition: Stable, very deconditioned and weak at baseline Pleasant, no distress RRR, no m/r/g CTA bilaterally Soft, obese, NT Ext WWP, right foot ulcer with deep wound, slight purulent drainage Contact information for after-discharge care Placement Destination [facility] . Specialty: [facility] Facility Contact information: [place] [phone] Discharge [...] signed by: Justin Reyna MD, 11/25/2017 13:01 [facility] documented in this encounter Medications [...] might be different f rom the original. [facility] PMG Hospitalist Progress Note Reagan [...] pantoprazole Mechanical fall -PT/OT ordered [facility] as [facility]/25 Prophylaxis : [...] as outlined above. Justin Reyna 11/24/2017 18:16 [facility] Sang Duff MD - 11/24/2017 1:59 PM PDTWe are evaluating the patient for further medical rehabilitatio n services. He does not qualify per CMS guidelines for full inpatient rehab . I recommend he be transferred to SNF for further skilled therapies once he is cleared acute ly. Justin Rodriguez MD - 11/23/2017 2:[address] [facility] PMG Hospitalist Progress Note Reagan [...] as outlined above. Justin Reyna 11/23/2017 14:24 [facility] oSimone mcmullen DPM - 11/23/2017 1:58 PM [...] Value Units Date/Time Culture, Wound, Smear, w/Anaerobe [[id number]] Collected: 11/21/171207 Order Status: Sent Lab Status: In process Updated: 11/21/171249 Specimen: Tissue from Toe, Fifth/Small, Right Narrative: The following orders were created for panel order Culture, Wound, Smear, w/Anaerobe. Procedure Abnormality Status --------- ------ Culture, Wound, Smear[[id number]] In process Culture, Anaerobic[[id number]] In process Please view results for these tests on the individual orders. 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 PMG Hospitalist Progress Note Reagan [...] as outlined above. Justin Reyna 11/22/2017 17:40 [facility] Danielle Claire, Installation And Service Technician - 11/22/2017 2:13 PM PDTFormatting of this [...] cerebral hemisphere; Diabetes mellitus (HCC); Stroke (cerebrum) ([facility]); an d TBI (traumatic brain injury) ([facility]). No risk factors for MDR organisms. HPI: [...] Value Units Date/Time Culture, Wound, Smear, w/Anaerobe [[id number]] Collected: 11/21/17 1208 Order Status: Sent Lab Status: In process Updated: 11/21/17 1250 Specimen: Tissue from Toe, Fifth/Small, Right Narrative: The following orders were created for panel order Culture, Wound, Smear, w/Anaerobe. Procedure Abnormality Status --------- ------ Culture, Wound, Smear[[id number]] Preliminary result Culture, Anaerobic[[id number]] In process Please view results for these tests on the individual orders. Culture, Wound, Smear [[id number]] Collected: 11/21/17 1208 Order Status: Completed Lab Status: Preliminary result Updated: 11/22/17 1021 Specimen: Tissue from Toe, Fifth/Small, Right Culture 2+ Lactose Fermenting Gram Negative Bacilli Comment: Identification and susceptibility to follow. Gram Stain Result 2+ White Blood Cells 1+ Epithelial cells 2+ Gram negative rods Culture, Anaerobic [[id number]] Collected: 11/21/17 1208 Order Status: Sent Lab Status: In process Updated: 11/21/17 1250 Specimen: Tissue from Toe, Fifth/Small, Right Respiratory Virus Panel, NAAT [[id number]] Collected: 11/20/17 1257 Order Status: Completed Lab [...] pneumoniae DNA Not Detected Narrative: Performed at: [address] [place] [address] [id number] Pulping Machine Operator: Jurgen Costa MD, Phone: [phone] Culture, Wound, Smear [[id number]] (Susceptibility) Collected: 11/20/17 0825 Order Status: Completed [...] Sulfamethoxazole <=20 ug/mL Sensitive Culture, Wound, Smear [[id number]] (Susceptibility) Collected: 11/19/17 2031 Order Status: Completed [...] no longer reported. Culture, Respiratory, Lower, Smear [[id number]] Order Status: Sent Lab Status: No result Specimen: Body Fluid from Sputum, Expectorated Culture, Wound, Smear [[id number]] Order Status: Canceled Lab Status: No result Specimen: Tissue from Leg, Left Culture, Blood [[id number]] (Normal) Collected: 11/19/17 1537 Order Status: Completed Lab Status: Preliminary result Updated: 11/20/17 0351 Specimen: Blood from Peripheral Blood Culture No growth: Monitored continually by instrument for 5 days Culture, Blood [[id number]] (Normal) Collected: 11/19/17 1506 Order Status: Completed Lab Status: Preliminary result Updated: 11/20/17 0321 Specimen: Blood from Peripheral Blood Culture No growth: Monitored continually by instrument for 5 days Culture, Urine [[id number]] Collected: 11/19/17 1416 Order Status: Completed Lab [...] Monitoring Protocol Electronically signed by: Danielle Guillermo, Installation And Service Technician 11/22/2017 14:13 Associated attestation - Luther Hampton, [...] DPSunshine Shepard Age/Gender 72 y.o. male Location [facility] [...] Value Units Date/Time Culture, Wound, Smear, w/Anaerobe [[id number]] Collected: 11/21/171207 Order Status: Sent Lab Status: In process Updated: 11/21/17 1250 Specimen: Tissue from Toe, Fifth/Small, Right Narrative: The following orders were created for panel order Culture, Wound, Smear, w/Anaerobe. Procedure Abnormality Status --------- ------ Culture, Wound, Smear[[id number]] In process Culture, Anaerobic[[id number]] In process Please view results for these tests on the individual orders. Culture, Wound, Smear [[id number]] Collected: 11/21/171207 Order Status: Sent Lab Status: In process Updated: 11/21/17 1250 Specimen: Tissue from Toe, Fifth/Small, Right Culture, Anaerobic [[id number]] Collected: 11/21/171207 Order Status: Sent Lab Status: [...] cerebral hemisphere; Diabetes mellitus (HCC); Stroke (cerebrum) ([facility]); an d TBI (traumatic brain injury) ([facility]). . No risk factors for MDR organisms. [...] Value Units Date/Time Culture, Wound, Smear, w/Anaerobe [[id number]] Collected: 11/21/171207 Order Status: Sent Lab Status: In process Updated: 11/21/17 125 Specimen: Tissue from Toe, Fifth/Small, Right Narrative: The following orders were created for panel order Culture, Wound, Smear, w/Anaerobe. Procedure Abnormality Status --------- ------ Culture, Wound, Smear[[id number]] In process Culture, Anaerobic[[id number]] In process Please view results for these tests on the individual orders. Culture, Wound, Smear [[id number]] Collected: 11/21/17 120 Order Status: Sent Lab Status: In process Updated: 11/21/17 125 Specimen: Tissue from Toe, Fifth/Small, Right Culture, Anaerobic [[id number]] Collected: 11/21/17 120 Order Status: Sent Lab Status: In process Updated: 11/21/17 1250 Specimen: Tissue from Toe, Fifth/Small, Right Respiratory Virus Panel, NAAT [[id number]] Collected: 11/20/17 1257 Order Status: Sent Lab Status: In process Updated: 11/20/17 1302 Specimen: Tissue from Nasopharynx Culture, Wound, Smear [[id number]] Collected: 11/20/17 0825 Order Status: Completed Lab Status: Preliminary result Updated: 11/21/17 0739 Specimen: Tissue from Foot, Right Culture 1+ Gram Negative Jayesh, NOT Pseudomonas Comment: Identification and susceptibility to follow. 1+ Gram Positive Cocci Comment: Isolating for additional information. Gram Stain Result 1+ White Blood Cells No organisms seen Culture, Wound, Smear [[id number]] (Susceptibility) Collected: 11/19/17 203 Order Status: Completed [...] <=20 ug/mL Sensitive Culture, Respiratory, Lower, Smear [[id number]] Order Status: Sent Lab Status: No result Specimen: Body Fluid from Sputum, Expectorated Culture, Wound, Smear [[id number]] Order Status: Canceled Lab Status: No result Specimen: Tissue from Leg, Left Culture, Blood [[id number]] (Normal) Collected: 11/19/17 1537 Order Status: Completed Lab Status: Preliminary result Updated: 11/20/17 0351 Specimen: Blood from Peripheral Blood Culture No growth: Monitored continually by instrument for 5 days Culture, Blood [[id number]] (Normal) Collected: 11/19/17 1506 Order Status: Completed Lab Status: Preliminary result Updated: 11/20/17 0321 Specimen: Blood from Peripheral Blood Culture No growth: Monitored continually by instrument for 5 days Culture, Urine [[id number]] Collected: 11/19/17 1416 Order Status: Completed Lab [...] Hoff MD - 11/21/2017 11:05 AM PDT [facility] KELLIE GUTIERREZ HOSPITALIST PROGRESS NOTE Patient: Reagan Shepard : 1945: Age: 72 y.o. MedRec: [id number] Admission date: 11/19/2017 Hospital day # : [...] E' Septal Velocity 4.79 cm/s MV Deceleration Bladen 336.24 cm/s2 MV Deceleration Time 332.96 msec [...] Value Units Date/Time Respiratory Virus Panel, NAAT [[id number]] Collected: 11/20/17 1257 Order Status: Sent Lab Status: In process Updated: 11/20/17 1302 Specimen: Tissue from Nasopharynx Culture, Wound, Smear [[id number]] Collected: 11/20/17 0825 Order Status: Completed Lab Status: Preliminary result Updated: 11/21/17 0739 Specimen: Tissue from Foot, Right Culture 1+ Gram Negative Jayesh, NOT Pseudomonas Comment: Identification and susceptibility to follow. 1+ Gram Positive Cocci Comment: Isolating for additional information. Gram Stain Result 1+ White Blood Cells No organisms seen Culture, Wound, Smear [[id number]] (Susceptibility) Collected: 11/19/17 203 Order Status: Completed [...] + Sulfamethoxazole <=20 ug/mL Sensitive Culture, Blood [[id number]] (Normal) Collected: 11/19/17 1537 Order Status: Completed Lab Status: Preliminary result Updated: 11/20/17 0351 Specimen: Blood from Peripheral Blood Culture No growth: Monitored continually by instrument for 5 days Culture, Blood [[id number]] (Normal) Collected: 11/19/17 1506 Order Status: Completed Lab Status: Preliminary result Updated: 11/20/17 0321 Specimen: Blood from Peripheral Blood Culture No growth: Monitored continually by instrument for 5 days Culture, Urine [[id number]] Collected: 11/19/17 1416 Order Status: Completed Lab [...] Other Pharmacy Consult Nasim Jimenez 11/21/2017 11:05 [facility] Nasim Hoff MD - 11/20/2017 10:04 AM PDT [facility] KELLIE GUTIERREZ HOSPITALIST PROGRESS NOTE Patient: Reagan Shepard : 1945: Age: 72 y.o. MedRec: [id number] Admission date: 11/19/2017 Hospital day # : [...] PH UA 5.0 5.0 - 8.0 Specific [place] 1.017 1.001 - 1.030 PROTEIN UA 30 [...] Component Value Units Date/Time Culture, Wound, Smear [[id number]] Collected: 11/20/17 0825 Order Status: Sent Lab Status: In process Updated: 11/20/17 0829 Specimen: Tissue from Foot, Right Culture, Wound, Smear [[id number]] Collected: 11/19/172030 Order Status: Completed Lab Status: Preliminary result Updated: 11/20/17 09 Specimen: Tissue from Leg, Lower, Right Culture 2+ Gram Negative Jayesh, NOT Pseudomonas Comment: Identification and susceptibility to follow. 1+ Gram Positive Cocci Comment: Isolating for additional information. Gram Stain Result No white blood cells (PMNs) seen 1+ Gram negative rods Culture, Blood [[id number]] (Normal) Collected: 11/19/17 1537 Order Status: Completed Lab Status: Preliminary result Updated: 11/20/17 0351 Specimen: Blood from Peripheral Blood Culture No growth: Monitored continually by instrument for 5 days Culture, Blood [[id number]] (Normal) Collected: 11/19/17 1506 Order Status: Completed Lab Status: Preliminary result Updated: 11/20/17 0321 Specimen: Blood from Peripheral Blood Culture No growth: Monitored continually by instrument for 5 days Culture, Urine [[id number]] (Normal) Collected: 11/19/17 1416 Order Status: Completed [...] Other Pharmacy Consult Nasim Jimenez 11/20/2017 10:05 [facility] ico, Shirley Fuller mD - 11/20/2017 9:10 [...] damage to right cerebral hemisphere; Diabetes mellitus ([facility]); Stroke (cerebrum) ([facility]); an d TBI (traumatic brain injury) ([facility]). . No risk factors for MDR organisms. HPI: history of DM, presented with fatigue and slipped wearing socks/falling backwards at h ome w/ left hip/shoulder pain thereafter. No LOC. No dysuria. Fever yesterday, cough with lo ose nonproductive x few days, fatigue and malaise last few days. Chronic right lower alanis wo und care x 1 year per [facility]. Antimicrobials - Current Antibiotic Dates of Therapy vancomycin 11/19- zosyn 11/19- Antimicrobials - Discontinued Antibiotic Dates of Therapy Historical Vancomycin dosing (previous & current encounter): none Micro/Cultures/Diagnostics: Microbiology Results (Last 14 Days by Collected Date with Culture/Sensitivity) Procedure Component Value Units Date/Time Culture, Wound, Smear [[id number]] Collected: 11/20/17824 Order Status: Sent Lab Status: In process Updated: 11/20/17828 Specimen: Tissue from Foot, Right Culture, Wound, Smear [[id number]] Collected: 11/19/172030 Order Status: Completed Lab Status: Preliminary result Updated: 11/20/17899 Specimen: Tissue from Leg, Lower, Right Culture 2+ Gram Negative Jayesh, NOT Pseudomonas Comment: Identification and susceptibility to follow. 1+ Gram Positive Cocci Comment: Isolating for additional information. Gram Stain Result No white blood cells (PMNs) seen 1+ Gram negative rods Culture, Respiratory, Lower, Smear [[id number]] Order Status: Sent Lab Status: No result Specimen: Body Fluid from Sputum, Expectorated Culture, Wound, Smear [[id number]] Order Status: Canceled Lab Status: No result Specimen: Tissue from Leg, Left Culture, Blood [[id number]] (Normal) Collected: 11/19/17 1537 Order Status: Completed Lab Status: Preliminary result Updated: 11/20/17 0351 Specimen: Blood from Peripheral Blood Culture No growth: Monitored continually by instrument for 5 days Culture, Blood [[id number]] (Normal) Collected: 11/19/17 1506 Order Status: Completed Lab Status: Preliminary result Updated: 11/20/17 0321 Specimen: Blood from Peripheral Blood Culture No growth: Monitored continually by instrument for 5 days Culture, Urine [[id number]] (Normal) Collected: 11/19/17 1416 Order Status: Completed [...] cerebral hemisphere; Diabetes mellitus (HCC); Stroke (cerebrum) ([facility]); an d TBI (traumatic brain injury) ([facility]). . No risk factors for MDR organisms. [...] Value Units Date/Time Culture, Respiratory, Lower, Smear [[id number]] Order Status: Sent Lab Status: No result Specimen: Body Fluid from Sputum, Expectorated Culture, Wound, Smear [[id number]] Order Status: Sent Lab Status: No result Specimen: Tissue from Leg, Left Culture, Blood [[id number]] Collected: 11/19/17 1537 Order Status: Sent Lab Status: In process Updated: 11/19/17 1543 Specimen: Blood from Peripheral Blood Culture, Blood [[id number]] Collected: 11/19/17 1506 Order Status: Sent Lab Status: In process Updated: 11/19/17 1511 Specimen: Blood from Peripheral Blood Culture, Urine [[id number]] Collected: 11/19/17 1416 Order Status: Sent Lab [...] the | | | | PDT | ([facility]) | results section. | + +--------+ + [...] K?MRN: | | | | | | [id number] | | | [id number] | | | his | | | [...] | | | ent/06 | | | [id number] | | | -9b07- | | | [...] | | | St. | | | [place] | | | y H. | | [...] | | | St. | | | [place] | | | y | | | [...] [address] | [place] | [phone] | | [facility] | | [address] | | | - LABORATORY | | [...] + | [facility] | [address] | [place] | [phone] | | [facility] | | [address] | | | - LABORATORY | | [...] + | [facility] | [address] | [place] | [phone] | | [facility] | | [address] | | | - LABORATORY | | [...] | | | FILTRATION | mL/min/1.73m2 | [facility] | | | [facility] | RATE,ESTIMATED | | MEDICAL | | | | mL/min/1.43m0Ctie than | | CENTER - | | [...] [address] | [place] | [phone] | | [facility] | | [address] | | | - LABORATORY | | [...] | Basophils | | K/uL | [facility] | | | | | | MEDICAL [...] [address] | [place] | [phone] | | [facility] | | [address] | | | - LABORATORY | | [...] [address] | [place] | [phone] | | [facility] | | [address] | | | - [...] [address] | [place] | [phone] | | [facility] | | [address] | | | - LABORATORY | | [...] [address] | [place] | [phone] | | [facility] | | [address] | | | - LABORATORY | | [...] + | [facility] | [address] | [place] | [phone] | | [facility] | | [address] | | | - LABORATORY | | [...] mL/min/1.73m2 | [facility] | | | [facility] | RATE,ESTIMATED | | MEDICAL | | | | mL/min/1.55z0Kqyb than | | CENTER - | | [...] [address] | [place] | [phone] | | [facility] | | [address] | | | - LABORATORY | | [...] | | | Neutrophils | | | [facility] | | [...] [address] | [place] | [phone] | | [facility] | | [address] | | | - LABORATORY | | [...] + | [facility] | [address] | [place] | [phone] | | [facility] | | [address] | | | - LABORATORY | | [...] [address] | [place] | [phone] | | [facility] | | [address] | | | - LABORATORY | | [...] [address] | [place] | [phone] | | [facility] | | [address] | | | - LABORATORY | | [...] + | [facility] | [address] | [place] | [phone] | | [facility] | | [address] | | | - LABORATORY | | [...] [address] | [place] | [phone] | | [facility] | | [address] | | | - LABORATORY | | [...] mL/min/1.73m2 | [facility] | | | [facility] | RATE,ESTIMATED | | MEDICAL | | | | mL/min/1.79c4Zviz than | | CENTER - | | [...] [address] | [place] | [phone] | | [facility] | | [address] | | | - LABORATORY | | [...] + | [facility] | [address] | [place] | [phone] | | [facility] | | [address] | | | - LABORATORY | | [...] [address] | [place] | [phone] | | [facility] | | [address] | | | - LABORATORY | | [...] [address] | [place] | [phone] | | [facility] | | [address] | | | - LABORATORY | | [...] + | [facility] | [address] | [place] | [phone] | | [facility] | | [address] | | | - LABORATORY | | [...] ST. | [address] | [place] | [phone] | | [facility] | | [address] | | | - [...] [address] | [place] | [phone] | | [facility] | | [address] | | | - LABORATORY | | [...] [address] | [place] | [phone] | | [facility] | | [address] | | | - LABORATORY | | [...] ST. | [address] | [place] | [phone] | | [facility] | | [address] | | | - LABORATORY | | [...] | 1.04 | 0.60 - 1.30 | [facility] | | | | | mg/dL | [facility] | | | | | | MEDICAL | | | | | | CENTER - | | | | | | LABORATORY | | + + + + + + | eGFR if not | >60Comment: GLOMERULAR | >=60 | [facility] | | | | FILTRATION | mL/min/1.73m2 | [facility] | | | [facility] | RATE,ESTIMATED | | MEDICAL | | | | mL/min/1.50e9Szex than | | CENTER - | | [...] [address] | [place] | [phone] | | [facility] | | [address] | | | - LABORATORY | | [...] [address] | [place] | [phone] | | [facility] | | [address] | | | - LABORATORY | | [...] ST. | [address] | [place] | [phone] | | [facility] | | [address] | | | - LABORATORY | | [...] [address] | [place] | [phone] | | [facility] | | [address] | | | - LABORATORY | | [...] [facility] | | | | | | [facility] | | | | | | MEDICAL [...] [address] | [place] | [phone] | | [facility] | | [address] | | | - LABORATORY | | [...] [address] | [place] | [phone] | | [facility] | | [address] | | | - LABORATORY | | [...] [address] | [place] | [phone] | | [facility] | | [address] | | | - LABORATORY | | [...] + | [facility] | [address] | [place], [place] | [phone] | | [facility] | | [address] | | | - LABORATORY | | [...] | | s | | | [facility] | | [...] cells seen | [facility] | | | [facility] | | | [facility] | | | - LABORATORY | + + + + + + + + | Performing | Address | City/State/Zipcode | Phone Number | | Organization | | | | + + + + + | [facility] | [address] | [place] | [phone] | | [facility] | | [address] | | | - LABORATORY | | [...] + | [facility] | [address] | [place] | [phone] | | [facility] | | [address] | | | - LABORATORY | | [...] [address] | [place] | [phone] | | [facility] | | [address] | | | - LABORATORY | | [...] [address] | [place] | [phone] | | [facility] | | [address] | | | - LABORATORY | | [...] [address] | [place] | [phone] | | [facility] | | [address] | | | - LABORATORY | | [...] + | [facility] | [address] | [place] | [phone] | | [facility] | | [address] | | | - LABORATORY | | [...] | mL/min/1.73m2 | [facility] | | | [facility] | RATE,ESTIMATED | | MEDICAL | | | | mL/min/1.24b3Lkpv than | | CENTER - | | [...] [address] | [place] | [phone] | | [facility] | | [address] | | | - LABORATORY | | [...] [address] | [place] | [phone] | | [facility] | | [address] | | | - LABORATORY | | [...] [address] [address] | [place] | [phone] | | [facility] | | [address] | | | - LABORATORY | | [...] | chronic inflammation suggestive of osteomyelitis. JVR:[facility]:C2NR | | | MICROSCOPIC EXAMINATION: Histologic [...] in decal | | | STAT).. am:AMB:[facility] PERFORMING LABORATORY: The technical | | | component was performed by [employer], [address] [facility], | | | [facility] [address] (Sorting Grapple Operator: Khadra Gill MD; CLIA# | | | [id number]). Professional interpretation was performed by [employer] | | | [employer], [facility], [address] [place] [address] (Sorting Grapple Operator: Ambrosio | | | Madison Hall). Diagnostician: Ambrosio Hall MD | | | Pathologist Electronically Signed 11/23/2017 | | + + + + +---------+ + + | Performing | Address | City/State/Zipcode | Phone Number | | Organization | | | | + +---------+ + + | [facility] | | | | | [facility] | | | | + +---------+ + [...] + | [facility] | [address] | [place] | [phone] | | [facility] | | [address] | | | - LABORATORY | | [...] | | | | | | n [place] | | | | | + +---------+ [...] + | [facility] | [address] | [place] | [phone] | | [facility] | | [address] | | | - LABORATORY | | [...] + + | Performed at: 01 - [facility] [address], | REFERENCE LAB | | [place], [place] [id number] Pulping Machine Operator: Jurgen Costa MD, Phone: | [facility] | | [phone] | | + + + + + + + + | Performing | Address | City/State/Zipcode | Phone Number | | Organization | | | | + + + + + | REFERENCE LAB | [address] | [place], [place] | [phone] | | [facility] | [place] | [address] | | + + + + + [...] + | [facility] | [address] | [place] | [phone] | | [facility] | | [address] | | | - LABORATORY | | [...] [address] | [place] | [phone] | | [facility] | | [address] | | | - LABORATORY | | [...] [address] | [place] | [phone] | | [facility] | | [address] | | | - LABORATORY | | [...] [address] | [place] | [phone] | | [facility] | | [address] | | | - LABORATORY | | [...] [address] | [place] | [phone] | | [facility] | | [address] | | | - LABORATORY | | [...] [address] | [place] | [phone] | | [facility] | | [address] | | | - LABORATORY | | [...] [address] | [place] | [phone] | | [facility] | | [address] | | | - LABORATORY | | [...] [address] | [place] | [phone] | | [facility] | | [address] | | | - LABORATORY | | [...] + | [facility] | [address] | [place] | [phone] | | [facility] | | [address] | | | - LABORATORY | | [...] | mL/min/1.73m2 | [facility] | | | [facility] | RATE,ESTIMATED | | MEDICAL | | | | mL/min/1.04h1Eerz than | | CENTER - | | [...] [address] | [place] | [phone] | | [facility] | | [address] | | | - LABORATORY | | [...] + | [facility] | [address] | [place], [place] | [phone] | | [facility] | | [address] | | | - LABORATORY | | [...] | | POC | | | [facility] | | | | | | MEDICAL [...] [address] | [place] | [phone] | | [facility] | | [address] | | | - LABORATORY | | [...] + | [facility] | [address] | [place] | [phone] | | [facility] | | [address] | | | - LABORATORY | | [...] [address] | [place] | [phone] | | [facility] | | [address] | | | - LABORATORY | | [...] + | [facility] | [address] | [place] | [phone] | | [facility] | | [address] | | | - LABORATORY | | [...] + | [facility] | [address] | [place] | [phone] | | [facility] | | [address] | | | - LABORATORY | | [...] ST. | [address] | [place], [place] | [phone] | | [facility] | | [address] | | | - LABORATORY | | [...] + | [facility] | [address] | [place] | [phone] | | [facility] | | [address] | | | - [...] mL/min/1.73m2 | [facility] | | | [facility] | RATE,ESTIMATED | | MEDICAL | | | | mL/min/1.24f3Fpwt than | | CENTER - | | [...] ST. | [address] | [place], [place] | [phone] | | [facility] | | [address] | | | - LABORATORY | | [...] [address] | [place] | [phone] | | [facility] | | [address] | | | - LABORATORY | | [...] | REFERENCE | | | | of [facility] | | LAB [facility] | | | | standards require a | | - BKR | | | | culture to beperformed | | | | | | on CSF specimens | | | | | | submitted for bacterial | | | | | | antigen testing.(CAP | | | | | | [id number]) Urine | | | | | | specimens will not be | | | | | | cultured. | | | | + + + + + + + + | Specimen | + + | Urine | + + + + + | Narrative | Performed At | + + + | Performed at: 01 - [facility] [address] [facility], | REFERENCE LAB | | [place], [place] [id number] Pulping Machine Operator: Christ Deal MD, Phone: | [facility] | | [phone] | | + + + + + + + + | Performing | Address | City/State/Zipcode | Phone Number | | Organization | | | | + + + + + | REFERENCE LAB | [address] | [place], [place] | [phone] | | [facility] | [facility] | [address] | | + + + + + [...] + | [facility] | [address] | [place] | [phone] | | [facility] | | [address] | | | - LABORATORY | | [...] - 1.030 | [facility] | | | [place], | | | [facility] | | [...] [address] | [place] | [phone] | | [facility] | | [address] | | | - LABORATORY | | [...] | | | | | | use Edmonson 10/325 if ordered. If | | | [...] scheduled: AC, NPO, Daytime | | | 5039-9124 Use NIGHT DOSE for | | | doses scheduled: HS, 3AM, | | | Nighttime 5461-9891, | | + +---+ | | | [...] | | | MEALS, First dose on [facility] 11/24/17 | | | | | | [...]
--- OUTSIDE RECORDS SUMMARY | ~2019-08-08 | XMS | Encounter Summary ---
Demographics + + + | Address | [address] | | | [place] [address] | + + + | Home Phone [...] + | Jessica Shepard | ECON | [address] | | | | | [place] | | | | | [address] | | + + + + + | Bel Solis | ECON | Unknown | | + + + + + Care Team Providers + +------+ + | Care Rock Singer Name | Role | Phone | + +------+ + | Jamar Manuel MD | PCP | | + +------+ + Encounter Details +--------+ + + + + | Date | Type | Department | Care Team | Description | +--------+ + + + + | 04/06/ | Hospital | [facility] | Jagdish Jimenez DO | Insulin dependent | | 2020 - | Encounter | [facility] | [address] | diabetes mellitus | | | | [address] | [place] [address] | ([facility]) (Primary Dx); | | 04/21/ | | [place], [place] | [phone] | Peripheral vascular | | 2020 | | [address] | | disease ([facility]); Other | | | | [phone] | Ady Yin MD | osteomyelitis of | | | | | [address] | right foot ([facility]); | | | | | [place] [address] | Essential | | | | | [phone] | hypertension; Acute | | | | | | left hemiparesis | | | | | Grover Charles MD | ([facility]); Other | | | | | [address] | osteomyelitis of | | | | | [place] [address] | right foot ([facility]); | | | | | [phone] | Chronic | | | | | | osteomyelitis ([facility]); | | | | | Scooter Davies MD | Acute osteomyelitis | | | | | [address] | of right calcaneus | | | | | [place] | ([facility]); Osteomyelitis | | | | | [address] | of metatarsal | | | | | | ([facility]); 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 The patient was admitted to regular medical floor and started on optimal medical management . On-call blue leather sorter (Dr. Ruelas) recommended continued medical management. Patient [...] inferior defect with partial improvement at rest oxidation operator was i nformed by hospitalist colleague [...] their primary care provider within [address] after discharge, follow-up with ID in 2 weeks after discharge, follow-up with vascular s minnie as per their recommendations or otherwise within 2 weeks after discharge. The patien t will need to follow-up with his outpatient blue leather sorter within 1 to 2 weeks after discharg [...] Results Results Reviewed. Discharge Information: Follow up: [address] [address] Bhanu Seaman PA-C [address] [place] [id number] In 2 weeks Jamar Manuel [place] [address] Schedule an appointment as soon as possible for a visit in 1 week Hero Gaston MD [address] [facility] [phone] Schedule an appointment as soon as possible for a visit in 2 weeks Post hospital discharge follow-up Dr. [place] Ruelas [address] [facility] [phone] Schedule an appointment as soon as possible [...] numbness Complications from anesthesia Date Last Reviewed: 08/20/201519992103-9526 [employer]. [address] [place] [address], [place] [address]. All righ ts reserved. This information is [...] Wakefield PA-C - 04/21/2019 8:21 AM PST [facility]: Vascular Surgery Progress Note SUBJECTIVE Patient Summary: 74 y.o. man with complex medical issues and LE ischemic ulcers, he wa s recently admitted to the [facility] from 03/28/19 to 04/04/19 where he was treated/ diagnosed with systolic heart failure, type 2 MO/NSTEMI, SHAE, ARF. O2 desaturation brought him from [...] Holliday RN - 04/20/2019 4:40 PM PST [facility]: Wound Care Follow Up Note [...] Primary Wound Type: Diabetic Ulcer Side: Left Hobson ation: lateral Location: foot Wound Subtype: ulceration, [...] M D - 04/20/2019 2:16 PM PST [facility]: Hospitalist Progress Note Pt: Reagan [...] history notable for admit to [facility] from 03/28/19 to 04/04/2019 for CHF [...] encounter as of 01/31/20-14:16 IMAGING: Reviewed in [facility], no new results. PROBLEM LIST [...] days of IV antibiotics at [facility] discharged home on with augmentin, now readmitted on 04/06 at [facility] and started on rocephin after sending [...] Dispo: back to [facility] pending recovery from vascular bypass surgery (okay to go [facility] vascular surgery perspective), final ID recs, [...] therapy as indicated. Thank You, Rosendo SquiresD, [facility] 04/20/19 1:52 PM Nandini Sánchez se, MD - 04/20/2019 8:56 AM PST [facility]: Infectious Diseases Progress Note Hospital [...] Component Value Units Date/Time Culture, Wound, Superficial [[id number]] (Abnormal) (Susceptibility) Collected: 04/06/19 1546 Order Status: Completed Lab Status: Final result Updated: 04/11/19 5128 Specimen: Body Fluid from Heel, Right Special Requests LT FOOT Special Requests Testing performed at [facility];[address] [place] [address];[place] [address] RESULT -- 1+ ENTEROCOCCUS FAECALIS Aminoglycosides (except [...] Sensitive SUSCEPTIBLE JESSICA Final Testing performed at [facility], [address] [place] [address] Culture, Wound, Superficial [[id number]] Collected: 04/06/19 1546 Order Status: Completed Lab Status: Final result Updated: 04/08/19 0937 Specimen: Body Fluid from Heel, Right Special Requests RIGHT FOOT Special Requests Testing performed at [facility];[address] [place] [address] RESULT -- 1+ NORMAL SKIN CELSA ISOLATED RESULT NO FURTHER WORKUP RESULT [facility], [address] [place] [address] Comment: Testing performed at [facility], [address] [place] [address] Microbiology Results (72 hrs) No results found [...] assisting with dosing and monitorization. Discussed with returned case inspector regarding OPAT. Discussed with returned case inspector regarding discharge planning. Dr. Dolan will take over ID service tomorrow. Please call if questions. Hero Richardson MD, MPH Infectious Diseases 04/20/19 heila Cabrera RN - 04/19/2019 7:20 PM PSTEnd of shift chart check complete. Sheila Cabrera RN unshine Love, [facility] - 04/19/2019 3:23 PM PSTFormatting [...] Shaver MD - 04/19/2019 2:46 PM PST [facility]: Hospitalist Progress Note Pt: Reagan [...] history notable for admit to [facility] from 03/28/19 to 04/04/2019 for CHF [...] days of IV antibiotics at [facility] discharged home on with augmentin, now readmitted on 04/06 at [facility] and started on rocephin after sending [...] evacuation of bladder clots and placement of mliler catheter with CBI by Dr. Montiel on 04/10/19. -continue flomax BID Obstipation: resolved, continue lactulose HTN: normotensive, continue above meds TII DM: HgA1c of 7.8, continue lantus 30u and LDISS PPx: SQH Code status: Full Dispo: back to [facility] pending recovery from vascular bypass surgery, final ID recs , tentatively planning for ~04/21 Grover Charles MD 2:46 PM 04/19/2019 Portions of this chart may have been copied from previous notes for continuity of care purp ose Hero Sánchez MD - 04/19/2019 9:53 AM PSTFormatting of this note might be different from the [facility]: Infectious Diseases Progress Note Hospital Day: [...] Component Value Units Date/Time Culture, Wound, Superficial [[id number]] (Abnormal) (Susceptibility) Collected: 04/06/191545 Order Status: Completed Lab Status: Final result Updated: 04/11/1928 Specimen: Body Fluid from Heel, Right Special Requests LT FOOT Special Requests Testing performed at [facility];[address] [place] [address] RESULT -- 1+ ENTEROCOCCUS FAECALIS Aminoglycosides (except [...] Sensitive SUSCEPTIBLE JESSICA Final Testing performed at [facility], [address] [place] [address] Culture, Wound, Superficial [[id number]] Collected: 04/06/191545 Order Status: Completed Lab Status: Final result Updated: 04/08/1937 Specimen: Body Fluid from Heel, Right Special Requests RIGHT FOOT Special Requests Testing performed at [facility];[address] [place] [address] RESULT -- 1+ NORMAL SKIN CELSA ISOLATED RESULT NO FURTHER WORKUP RESULT Testing performed [facility], [address] [place] [address] Comment: Testing performed at [facility], [address] [place] [address] Culture, Blood [[id number]] Collected: 04/06/19337 Order Status: Completed Lab Status: Final result Updated: 04/12/1952 Specimen: Peripheral Blood Special Requests R WRIST Special Requests Testing performed at [facility];[address] [place] [address] RESULT NO GROWTH 6 DAYS RESULT Testing performed at [facility], [address] [place] [address] Comment: Testing performed at [facility], [address] [place] [address] Culture, Blood [[id number]] Collected: 04/06/19330 Order Status: Completed Lab Status: Final result Updated: 04/12/1952 Specimen: Peripheral Blood Special Requests L WRIST Special Requests Testing performed at [facility];[address] [place] [address] RESULT NO GROWTH 6 DAYS RESULT Testing performed at [facility], [address] [place] [address] Comment: Testing performed at [facility], [address] [place] [address] Microbiology Results (72 hrs) No results found [...] might be different from the o riginal. [facility]: Vascular Surgery Progress Note SUBJECTIVE Patient Summary: 74 y.o. man with complex medical issues and LE ischemic ulcers, he wa s recently admitted to the [facility] from 03/28/19 to 04/04/19 where he was treated/ diagnosed with systolic heart failure, type 2 MO/NSTEMI, SHAE, ARF. O2 desaturation brought him from [...] Rachel Altamirano RN - 04/19/2019 5:46 AM [id number] left foot dressing change complete per order. Patient R groi n site with WENDY intact old drainage marked and unchanged patient reported burning pain BLE st ayed warm and pulses dopplered. Patient on 2L NC. Miller in place. Chart check complete. Leeanne rAias RN ujj, Vladimir Stover RN - 04/18/2019 [...] Grover Shaver MD - 4:52 PM PST [facility]: Hospitalist Progress Note Pt: Reagan [...] history notable for admit to [facility] from 03/28/19 to 04/04/2019 for CHF [...] the last 72 hours. IMAGING: Reviewed in [facility], no new results. PROBLEM LIST Principal Problem: [...] days of IV antibiotics at [facility] discharged home on with augmentin, now readmitted on 04/06 at [facility] and started on rocephin after sending [...] Dispo: back to [facility] pending cardiac evaluation/optimization, vascular bypass donna wero, [...] as indicated. Thank You, Sunshine Love, PharmD, [facility] 04/18/19 2:45 PM Syed López PTA [...] might be different from t kevin original. [facility]: Infectious Diseases Progress Note Hospital [...] Component Value Units Date/Time Culture, Wound, Superficial [[id number]] (Abnormal) (Susceptibility) Collected: 04/06/191545 Order Status: Completed Lab Status: Final result Updated: 04/11/1928 Specimen: Body Fluid from Heel, Right Special Requests LT FOOT Special Requests Testing performed at [facility];[address] [place] [address] RESULT -- 1+ ENTEROCOCCUS FAECALIS Aminoglycosides (except [...] Sensitive SUSCEPTIBLE JESSICA Final Testing performed at [facility], [address] [place] [address] Culture, Wound, Superficial [[id number]] Collected: 04/06/191545 Order Status: Completed Lab Status: Final result Updated: 04/08/19 0937 Specimen: Body Fluid from Heel, Right Special Requests RIGHT FOOT Special Requests Testing performed at [facility];[address] [place] [address] RESULT -- 1+ NORMAL SKIN CELSA ISOLATED RESULT NO FURTHER WORKUP RESULT Testing performed [facility], [address] [place] [address] Comment: Testing performed at [facility], [address] [place] [address] 390[address] Culture, Blood [[id number]] Collected: 04/06/19337 Order Status: Completed Lab Status: Final result Updated: 04/12/1952 Specimen: Peripheral Blood Special Requests R WRIST Special Requests Testing performed at [facility];[address] [place] [address] RESULT NO GROWTH 6 DAYS RESULT Testing performed [facility], [address] [place] [address] Comment: Testing performed at [facility], [address] [place] [address] 44042 Culture, Blood [[id number]] Collected: 04/06/19330 Order Status: Completed Lab Status: Final result Updated: 04/12/1952 Specimen: Peripheral Blood Special Requests L WRIST Special Requests Testing performed at [facility];[address] [place] [address] 11851 RESULT NO GROWTH 6 DAYS RESULT Testing performed [facility], [address] [place] [address] Comment: Testing performed at [facility], [address] [place] [address] 46782 Microbiology Results (72 hrs) No results found [...] might be different from the o riginal. [facility]: Vascular Surgery Progress Note SUBJECTIVE Patient Summary: 74 y.o. man with complex medical issues and LE ischemic ulcers, he wa s recently admitted to the [facility] from 03/28/19 to 04/04/19 where he was treated/ diagnosed with systolic heart failure, type 2 MO/NSTEMI, SHAE, ARF. O2 desaturation brought him from [...] of feet - [facility]. Cryovein is in [...] of shift chart check review Sunshine Chen, [facility] - 04/17/2019 1:38 PM PST [...] as indicated. Thank You, Sunshine Love, PharmD, [facility] 04/17/19 1:38 PM Grover Shaver MD - 04/17/2019 12:25 PM PST [facility]: Hospitalist Progress Note Pt: Reagan Shepard AGE/SEX: 74 y.o. male ROOM: [facility]4452-01 : 1945 PCP: Jamar Manuel MD ADMIT DATE: 04/06/2019 TODAY'S DATE: 04/17/2019 Hospital Day/Hospital Course: LOS: 11 days Mr. Shepard is a 74-year-old gentleman with a history of bilateral nonhealing diabetic trisha t ulcers, and history of TBI, stroke, insulin dependent DM, who presents with CHF exacerbati on with hospital course complicated by gross hematuria. Recent history notable for admit to [facility] from 03/28/19 to 04/04/2019 for CHF [...] days of IV antibiotics at [facility] discharged home on with augmentin, now readmitted on 04/06 at [facility] and started on rocephin after sending [...] Dispo: back to [facility] pending cardiac evaluation/optimization, vascular bypass donna wero, final ID recs, tentatively planning for ~04/21 Grover Charles MD 12:25 PM 04/17/2019 Portions of this chart may have been copied from previous notes for continuity of care purp ose Rico Modi MD - 11:19 AM PST [facility]: Cardiology/[facility] Interventional cardiology note RE: Reagan [...] minimal reversib ility 2. Recent non-Q wave MO 3. Severe peripheral vascular disease 4. Diabetes [...] might be different from the heidi razo. [facility]: Infectious Diseases Progress Note Hospital [...] Component Value Units Date/Time Culture, Wound, Superficial [[id number]] (Abnormal) (Susceptibility) Collected: 04/06/191545 Order Status: Completed Lab Status: Final result Updated: 04/11/1928 Specimen: Body Fluid from Heel, Right Special Requests LT FOOT Special Requests Testing performed at [facility];[address] [place] [address];[place] [address] RESULT -- 1+ ENTEROCOCCUS FAECALIS Aminoglycosides (except [...] Sensitive SUSCEPTIBLE JESSICA Final Testing performed at [facility], [address] [place] [address], [place] [address] Culture, Wound, Superficial [[id number]] Collected: 04/06/191545 Order Status: Completed Lab Status: Final result Updated: 04/08/19 0937 Specimen: Body Fluid from Heel, Right Special Requests RIGHT FOOT Special Requests Testing performed at [facility];[address] [place] [address];[place] [address] RESULT -- 1+ NORMAL SKIN CELSA ISOLATED RESULT NO FURTHER WORKUP RESULT [facility] performed [facility], [address] [place] [address] Comment: Testing performed at [facility], [address] [place] [address] 36599 Culture, Blood [[id number]] Collected: 04/06/19337 Order Status: Completed Lab Status: Final result Updated: 04/12/19651 Specimen: Peripheral Blood Special Requests R WRIST Special Requests Testing performed at [facility];[address] [place] [address]35 RESULT NO GROWTH 6 DAYS RESULT Testing performed [facility], [address] [place] [address] Comment: Testing performed at [facility], [address] [place] [address]67[address] Culture, Blood [[id number]] Collected: 04/06/19330 Order Status: Completed Lab Status: Final result Updated: 04/12/1952 Specimen: Peripheral Blood Special Requests L WRIST Special Requests Testing performed at [facility];[address] [place] [address]3848 RESULT NO GROWTH 6 DAYS RESULT Testing performed [facility], [address] [place] [address] Comment: Testing performed at [facility], [address] [place] [address] Microbiology Results (72 hrs) No results found [...] might be different from the o riginal. [facility]: Vascular Surgery Progress Note SUBJECTIVE Patient Summary: 74 y.o. man with complex medical issues and LE ischemic ulcers, he wa s recently admitted to the [facility] from 03/28/19 to 04/04/19 where he was treated/ diagnosed with systolic heart failure, type 2 MO/NSTEMI, SHAE, ARF. O2 desaturation brought him from [...] Sánchez MD - 04/16/2019 6:49 PM PST [facility]: Infectious Diseases Progress Note Hospital [...] Component Value Units Date/Time Culture, Wound, Superficial [[id number]] (Abnormal) (Susceptibility) Collected: 04/06/19 1546 Order Status: Completed Lab Status: Final result Updated: 04/11/19 0728 Specimen: Body Fluid from Heel, Right Special Requests LT FOOT Special Requests Testing performed at [facility];[address] [place] [address];[place] [address] RESULT -- 1+ ENTEROCOCCUS FAECALIS Aminoglycosides (except [...] Sensitive SUSCEPTIBLE JESSICA Final Testing performed at [facility], [address] [place] [address] Culture, Wound, Superficial [[id number]] Collected: 04/06/19 1546 Order Status: Completed Lab Status: Final result Updated: 04/08/1937 Specimen: Body Fluid from Heel, Right Special Requests RIGHT FOOT Special Requests Testing performed at [facility];[address] [place] [address] RESULT -- 1+ NORMAL SKIN CELSA ISOLATED RESULT NO FURTHER WORKUP RESULT Testing performed [facility], [address] [place] [address] Comment: Testing performed at [facility], [address] [place] [address] Culture, Blood [[id number]] Collected: 04/06/19337 Order Status: Completed Lab Status: Final result Updated: 04/12/1952 Specimen: Peripheral Blood Special Requests R WRIST Special Requests Testing performed at [facility];[address] [place] [address] RESULT NO GROWTH 6 DAYS RESULT Testing performed [facility], [address] [place] [address] Comment: Testing performed at [facility], [address] [place] [address]708 Culture, Blood [[id number]] Collected: 04/06/19 0331 Order Status: Completed Lab Status: Final result Updated: 04/12/19 0652 Specimen: Peripheral Blood Special Requests L WRIST Special Requests Testing performed at [facility];[address] [place] [address];[place] [address] RESULT NO GROWTH 6 DAYS RESULT Testing performed [facility], [address] [place] [address] Comment: Testing performed at [facility], [address] [facility], [place] [address] Microbiology Results (72 hrs) No results found [...] note might be different from the original. [facility]: Hospitalist Progress Note Pt: Reagan [...] history notable for admit to [facility] from 03/28/19 to 04/04/2019 for CHF [...] days of IV antibiotics at [facility] discharged home on with augmentin, now readmitted on 04/06 at [facility] and started on rocephin after sending [...] Dispo: back to [facility] pending cardiac evaluation/optimization, vascular bypass donna wero, [...] RD 04/16/2019 3:21 PM Sunshine Chen, [facility] - 04/16/2019 12:18 PM PST [...] Patient encouraged to discuss medication changes with blue leather sorter ragini stanley to stopping medications or making any changes. Patient's questions answered. Heart Fail ure Hot Line number provided to patient. Face to face time was spent with patient providing counseling and education for congestive heart failure. Bhanu Wakefield P A-C - 04/16/2019 8:43 AM PST [facility]: Vascular Surgery Progress Note SUBJECTIVE Patient Summary: 74 y.o. man with complex medical issues and LE ischemic ulcers, he wa s recently admitted to the [facility] from 03/28/19 to 04/04/19 where he was treated/ diagnosed with systolic heart failure, type 2 MO/NSTEMI, SHAE, ARF. O2 desaturation brought him from [...] MD - 04/15/2019 1 2:48 PM PST [facility]: Hospitalist Progress Note Pt: Reagan Shepard AGE/SEX: 74 y.o. male ROOM: [address] [place] [address] : 1945 PCP: Jamar Manuel MD ADMIT DATE: 04/06/2019 TODAY'S DATE: 04/15/2019 Hospital Day/Hospital Course: LOS: 9 days Mr. Shepard is a 74-year-old gentleman with a history of bilateral nonhealing diabetic trisha t ulcers, and history of TBI, stroke, insulin dependent DM, who presents with CHF exacerbati on with hospital course complicated by gross hematuria. Recent history notable for admit to [facility] from 03/28/19 to 04/04/2019 for CHF [...] 04/14/19 0629 BNP 587.58* IMAGING: Reviewed in [facility], no new results. PROBLEM LIST [...] risk stratification . -cardiology consulted -NPO at [place] for nuc med stress test in morning [...] days of IV antibiotics at [facility] discharged home on with augmentin, now readmitted on 04/06 at [facility] and started on rocephin after sending [...] Dispo: back to [facility] pending cardiac evaluation/optimization, vascular bypass donna wero, final ID recs, likely 4-5 more days in hospital Grover Charles MD 12:48 PM 04/15/2019 Portions of this chart may have been copied from previous notes for continuity of care purp ose roctor, Sheila Brown [facility] - 04/15/2019 10:55 AM PST [...] as indicated. Thank You, Sheila Ahuja, PharmD, [facility] 04/15/2019, 10:41 AM Simba Fenton MD - [...] might be differ ent from the original. [facility]: Infectious Diseases Progress Note Hospital [...] Component Value Units Date/Time Culture, Wound, Superficial [[id number]] (Abnormal) (Susceptibility) Collected: 04/06/19 1546 Order Status: Completed Lab Status: Final result Updated: 04/11/19 1135 Specimen: Body Fluid from Heel, Right Special Requests LT FOOT Special Requests Testing performed at [facility];[address] [place] [address];[place] [address] RESULT -- 1+ ENTEROCOCCUS FAECALIS Aminoglycosides (except [...] Sensitive SUSCEPTIBLE JESSICA Final Testing performed at [facility], [address] [place] [address]707 Culture, Wound, Superficial [[id number]] Collected: 04/06/19 1546 Order Status: Completed Lab Status: Final result Updated: 04/08/19 0937 Specimen: Body Fluid from Heel, Right Special Requests RIGHT FOOT Special Requests Testing performed at [facility];[address] [place] [address] RESULT -- 1+ NORMAL SKIN CELSA ISOLATED RESULT NO FURTHER WORKUP RESULT [facility], [address] [place] [address]373 Comment: Testing performed at [facility], [address] [place] [address]011 Culture, Blood [[id number]] Collected: 04/06/198 Order Status: Completed Lab Status: Final result Updated: 04/12/19 0652 Specimen: Peripheral Blood Special Requests R WRIST Special Requests Testing performed at [facility];[address] [place] [address] 97524 RESULT NO GROWTH 6 DAYS RESULT Testing [facility], [address] [place] [address]118 Comment: Testing performed at [facility], [address] [place] [address] 19876 Culture, Blood [[id number]] Collected: 04/06/19 033 Order Status: Completed Lab Status: Final result Updated: 04/12/19 0652 Specimen: Peripheral Blood Special Requests L WRIST Special Requests Testing performed at [facility];[address] [facility];[place] [address] RESULT NO GROWTH 6 DAYS RESULT Testing performed [facility], [address] [place] [address] Comment: Testing performed at [facility], [address] [place] [address] Microbiology Results (72 hrs) No results found [...] note might be different from the origin [facility] Service: Hospitalist Progress Note Pt: [...] history notable for admit to [facility] from 03/28/19 to 04/04/2019 for CHF [...] days of IV antibiotics at [facility] discharged home on with augmentin, now readmitted on 04/06 at [facility] and started on rocephin after sending [...] date with age appropriate cancer screening PPx: [facility] Code status: Full Dispo: back to [facility] pending improvement in gross hematuria, CHF exacerbation, re peat angiogram, final ID recs, likely 4-5 more days in hospital Grover Charles MD 1:29 PM 04/14/2019 Portions of this chart may have been copied from previous notes for continuity of care purp ose Lyric Molina RN - 04/14/2019 1:27 PM PST [facility]: Wound Care Follow Up Note [...] any additional questions. Lyric Mclain RN, CMSRN, [facility] Inpatient Wound Ostomy Care [phone] 04/14/2019 1:29 PM Dheeraj Barraza, PT - [...] far vs stable.Vandana Luciano RN Meghan Alejandre [facility] - 04/14/2019 6:31 AM PST [...] Shaver MD - 04/13/2019 4:02 PM PST [facility]: Hospitalist Progress Note Pt: Reagan [...] history notable for admit to [facility] from 03/28/19 to 04/04/2019 for CHF [...] days of IV antibiotics at [facility] discharged home on with augmentin, now readmitted on 04/06 at [facility] and started on rocephin after sending [...] date with age appropriate cancer screening PPx: [facility] Code status: Full Dispo: back to [facility] pending improvement in gross hematuria, CHF exacerbation, [...] 113.3 kg Adjusted body weight: 89.1 kg [place] body weight: 73 kg Current Vital Signs: [...] due to patient being away at a [facility]. Drawing a level once the patient returns [...] as indicated. Thank You, Sunshine Love, PharmD, [facility] 04/13/19 3:20 PM Nandini Sánchez se, MD - 04/13/2019 10:54 AM PST [facility]: Infectious Diseases Progress Note Hospital [...] Component Value Units Date/Time Culture, Wound, Superficial [[id number]] (Abnormal) (Susceptibility) Collected: 04/06/19 1546 Order Status: Completed Lab Status: Final result Updated: 04/11/1928 Specimen: Body Fluid from Heel, Right Special Requests LT FOOT Special Requests Testing performed at [facility];[address] [place] [address];[place] [address] RESULT -- 1+ ENTEROCOCCUS FAECALIS Aminoglycosides (except [...] Resistant RESISTANT JESSICA Final Tetracycline Resistant RESISTANT JESSCIA Final Trimethoprim + Sulfamethoxazole Resistant RESISTANT JESSICA Final Vancomycin Sensitive SUSCEPTIBLE JESSICA Final Testing performed at [facility], [address] [place] [address], [place] [address] Culture, Wound, Superficial [[id number]] Collected: 04/06/19 1546 Order Status: Completed Lab Status: Final result Updated: 04/08/19 0937 Specimen: Body Fluid from Heel, Right Special Requests RIGHT FOOT Special Requests Testing performed at [facility];[address] [place] [address]108 RESULT -- 1+ NORMAL SKIN CELSA ISOLATED RESULT NO FURTHER WORKUP RESULT [facility], [address] [place] [address] 16[address] Comment: Testing performed at [facility], [address] [place] [address]1980 Culture, Blood [[id number]] Collected: 04/06/19 0338 Order Status: Completed Lab Status: Final result Updated: 04/12/19 0652 Specimen: Peripheral Blood Special Requests R WRIST Special Requests Testing performed at [facility];[address] [place] [address] 94135 RESULT NO GROWTH 6 DAYS RESULT Testing performed [facility], [address] [place] [address] Comment: Testing performed at [facility], [address] [place] [address] 75627 Culture, Blood [[id number]] Collected: 04/06/19 0331 Order Status: Completed Lab Status: Final result Updated: 04/12/19 0652 Specimen: Peripheral Blood Special Requests L WRIST Special Requests Testing performed at [facility];[address] [place] [address] 78120 RESULT NO GROWTH 6 DAYS RESULT Testing performed [facility], [address] [place] [address] Comment: Testing performed at [facility], [address] [place] [address] Microbiology Results (72 hrs) No results found [...] might be different from the o riginal. [facility]: Vascular Surgery Progress Note SUBJECTIVE Patient Summary: 74 y.o. man with complex medical issues and LE ischemic ulcers, he wa s recently admitted to the [facility] from 03/28/19 to 04/04/19 where he was treated/ diagnosed with systolic heart failure, type 2 MO/NSTEMI, SHAE, ARF. O2 desaturation brought him from [...] risks. Signed consent obtained. Will proceed to [facility] Disassembler today for right leg angiogram. Moderate Sedation [...] might be different from the o riginal. [facility]: Infectious Diseases Progress Note Hospital [...] Component Value Units Date/Time Culture, Wound, Superficial [[id number]] (Abnormal) (Susceptibility) Collected: 04/06/19 1546 Order Status: Completed Lab Status: Final result Updated: 04/11/19 0728 Specimen: Body Fluid from Heel, Right Special Requests LT FOOT Special Requests Testing performed at [facility];[address] [place] [address];[place] [address] RESULT -- 1+ ENTEROCOCCUS FAECALIS Aminoglycosides (except [...] Sensitive SUSCEPTIBLE JESSICA Final Testing performed at [facility], [address] [place] [address] 75814 Culture, Wound, Superficial [[id number]] Collected: 04/06/19 1546 Order Status: Completed Lab Status: Final result Updated: 04/08/1937 Specimen: Body Fluid from Heel, Right Special Requests RIGHT FOOT Special Requests Testing performed at [facility];[address] [place] [address] 91563 RESULT -- 1+ NORMAL SKIN CELSA ISOLATED RESULT NO FURTHER WORKUP RESULT [facility] performed [facility], [address] [place] [address] Comment: Testing performed at [facility], [address] [place] [address] 47051 Culture, Blood [[id number]] Collected: 04/06/19337 Order Status: Completed Lab Status: Final result Updated: 04/12/1952 Specimen: Peripheral Blood Special Requests R WRIST Special Requests Testing performed at [facility];[address] [place] [address]79 RESULT NO GROWTH 6 DAYS RESULT Testing performed [facility], [address] [place] [address]184 Comment: Testing performed at [facility], [address] [place] [address] 88470 Culture, Blood [[id number]] Collected: 04/06/19 0331 Order Status: Completed Lab Status: Final result Updated: 04/12/1952 Specimen: Peripheral Blood Special Requests L WRIST Special Requests Testing performed at [facility];[address] [place] [address] 79934 RESULT NO GROWTH 6 DAYS RESULT Testing performed [facility], [address] [place] [address] Comment: Testing performed at [facility], [address] [place] [address] Microbiology Results (72 hrs) No results found [...] this note might be different from the [facility] Service: Hospitalist Progress Note Pt: [...] history notable for admit to [facility] from 03/28/19 to 04/04/2019 for CHF [...] days of IV antibiotics at [facility] discharged home on with augmentin, now readmitted on 04/06 at [facility] and started on rocephin after sending [...] H Code status: Full Dispo: back to [facility] pending improvement in gross hematuria, CHF exacerbation, re peat angiogram, final ID recs, likely 4-5 more days in hospital Grover Charles MD 4:43 PM 04/12/2019 Portions of this chart may have been copied from previous notes for continuity of care purp ose Bhanu Wakefield PA-C - 04/12/2019 4:00 PM PST [facility]: Vascular Surgery Progress Note SUBJECTIVE Patient Summary: 74 y.o. man with complex medical issues and LE ischemic ulcers, he wa s recently admitted to the [facility] from 03/28/19 to 04/04/19 where he was treated/ diagnosed with systolic heart failure, type 2 MO/NSTEMI, SHAE, ARF. O2 desaturation brought him from [...] Bhanu Seaman PA-C Vascular Surgery unshine Love, [facility] - 04/12/2019 12:27 PM PST Vancomycin Dosing Per Pharmacy Subjective/Objective Reagan Shepard is a 74 y.o. 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 Additional antimicrobials: zosyn Quadriplegic/Paraplegic: no Diabetes: yes Baseline Serum Creatinine: 0.6 mg/dL Actual weight: 113.3 kg Adjusted body weight: 89.1 kg [place] body weight: 73 kg Current Vital Signs: [...] as indicated. Thank You, Sunshine Love, RosendoD, [facility] 04/12/19 3:27 PM Grover Shaver MD - 04/11/2019 5:06 PM PST [facility]: Hospitalist Progress Note Pt: Reagan [...] history notable for admit to [facility] from 03/28/19 to 04/04/2019 for CHF [...] days of IV antibiotics at [facility] discharged home on with augmentin, now readmitted on 04/06 at [facility] and started on rocephin after sending [...] Dispo: back to [facility] pending improvement in gross hematuria and CHF exacerbation Grover Charles MD 5:06 PM 04/11/2019 Portions of this chart may have been copied from previous notes for continuity of care purp ose roctor, Sheila Brown [facility] - 04/11/2019 2:03 PM PST Vancomycin Dosing Per Pharmacy Subjective/Objective Reagan Shepard is a 74 y.o. 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 Additional antimicrobials: zosyn Quadriplegic/Paraplegic: no Diabetes: yes Baseline Serum Creatinine: 0.6 mg/dL Actual weight: 113.3 kg Adjusted body weight: 89.1 kg [place] body weight: 73 kg Current Vital Signs: [...] might be different from stephanie brown original. [facility]: Infectious Diseases Progress Note Hospital [...] Component Value Units Date/Time Culture, Wound, Superficial [[id number]] (Abnormal) (Susceptibility) Collected: 04/06/191545 Order Status: Completed Lab Status: Final result Updated: 04/11/19 0728 Specimen: Body Fluid from Heel, Right Special Requests LT FOOT Special Requests Testing performed at [facility];[address] [place] [address]145 RESULT -- 1+ ENTEROCOCCUS FAECALIS Aminoglycosides (except [...] Sensitive SUSCEPTIBLE JESSICA Final Testing performed at [facility], [address] [place] [address] 30599 Culture, Wound, Superficial [[id number]] Collected: 04/06/191545 Order Status: Completed Lab Status: Final result Updated: 04/08/19 0937 Specimen: Body Fluid from Heel, Right Special Requests RIGHT FOOT Special Requests Testing performed at [facility];[address] [place] [address]87 RESULT -- 1+ NORMAL SKIN CELSA ISOLATED RESULT NO FURTHER WORKUP RESULT [facility], [address] [place] [address] Comment: Testing performed at [facility], [address] [place] [address] 97800 Culture, Blood [[id number]] Collected: 04/06/19337 Order Status: Completed Lab Status: Preliminary result Updated: 04/07/19812 Specimen: Peripheral Blood Special Requests R WRIST Special Requests Testing performed at [facility];[address] [place] [address] 06306 RESULT NO GROWTH AT THIS TIME RESULT Testing performed [facility], [address] [place] [address] 0[address]18 Comment: Testing performed at [facility], [address] [place] [address] 33749 Culture, Blood [[id number]] Collected: 04/06/19330 Order Status: Completed Lab Status: Preliminary result Updated: 04/07/19812 Specimen: Peripheral Blood Special Requests L WRIST Special Requests Testing performed at [facility];[address] [place] [address] 62784 RESULT NO GROWTH AT THIS TIME RESULT Testing performed at [facility], [address] [place] [address]17 Comment: Testing performed at [facility], [address] [place] [address] 21953 Microbiology Results (72 hrs) No results found [...] Shaver MD - 04/10/2019 4:51 PM PST [facility]: Hospitalist Progress Note Pt: Reagan Shepard AGE/SEX: 74 y.o. male ROOM: [facility]- : 1945 PCP: Jamar Manuel MD ADMIT DATE: 04/06/2019 TODAY'S DATE: 04/10/2019 Hospital Day/Hospital Course: LOS: 4 days Mr. Shepard is a 74-year-old gentleman with a history of bilateral nonhealing diabetic trisha t ulcers, and history of TBI, stroke, insulin dependent DM, who presents with CHF exacerbati on with hospital course complicated by gross hematuria. Recent history notable for admit to [facility] from 03/28/19 to 04/04/2019 for CHF [...] days of IV antibiotics at [facility] discharged home on with augmentin, now readmitted on 04/06 at [facility] and started on rocephin after sending [...] Dispo: back to [facility] pending improvement in gross hematuria and CHF exacerbation Grover Charles MD 4:51 PM 04/10/2019 Portions of this chart may have been copied from previous notes for continuity of care purp ose Hero Sánchez MD - 04/10/2019 2:27 PM PSTFormatting of this note might be different from the [facility] Service: Infectious Diseases Progress Note Hospital Day: [...] Component Value Units Date/Time Culture, Wound, Superficial [[id number]] (Abnormal) (Susceptibility) Collected: 04/06/19 1546 Order Status: Completed Lab Status: Preliminary result Updated: 04/10/19 0930 Specimen: Body Fluid from Heel, Right Special Requests LT FOOT Special Requests Testing performed at [facility];[address] [place] [address] 08105 RESULT -- 1+ ENTEROCOCCUS FAECALIS Aminoglycosides (except for high-level resistance testing), cephalosporins, clindamycin, an d trimethoprim-sulfamethoxazole may appear active in vitro but they are not effective clinic ally. RESULT -- 1+ ENTEROBACTER CLOACAE COMPLEX RESULT -- 1+ STAPHYLOCOCCUS AUREUS RESULT SUSCEPTIBILITY TO FOLLOW RESULT [facility], [address] [place] [address] 92708 Susceptibility Enterococcus faecalis (1) Antibiotic Interpretation Microscan [...] Sensitive SUSCEPTIBLE JESSICA Preliminary Testing performed at [facility], [address] [place] [address] 86224 Culture, Wound, Superficial [[id number]] Collected: 04/06/191545 Order Status: Completed Lab Status: Final result Updated: 04/08/19 0937 Specimen: Body Fluid from Heel, Right Special Requests RIGHT FOOT Special Requests Testing performed at [facility];[address] [place] [address] 08216 RESULT -- 1+ NORMAL SKIN CELSA ISOLATED RESULT NO FURTHER WORKUP RESULT Testing performed [facility], [address] [place] [address]195 Comment: Testing performed at [facility], [address] [place] [address] 89685 Culture, Blood [[id number]] Collected: 01/337 Order Status: Completed Lab Status: Preliminary result Updated: 04/07/19812 Specimen: Peripheral Blood Special Requests R WRIST Special Requests Testing performed at [facility];[address] [place] [address] 32810 RESULT NO GROWTH AT THIS TIME RESULT Testing performed [facility], [address] [place] [address] 20971 Comment: Testing performed at [facility], [address] [place] [address] 95059 Culture, Blood [[id number]] Collected: 04/06/19330 Order Status: Completed Lab Status: Preliminary result Updated: 04/07/19812 Specimen: Peripheral Blood Special Requests L WRIST Special Requests Testing performed at [facility];[address] [place] [address] 36645 RESULT NO GROWTH AT THIS TIME RESULT Testing performed [facility], [address] [place] [address] 56673 Comment: Testing performed at [facility], [address] [place] [address] 62696 Microbiology Results (72 hrs) No results found [...] might be different from the ramiro falcon [facility]: Urology Progress Note Hospital Day: [...] essential h ypertension, insulin-dependent diabetes, history of MO, GERD, ischemic stroke, diffuse signi ficant peripheral [...] Lujan MD - 04/09/2019 6:21 PM PST [facility]: Urology Progress Note Hospital Day: LOS: 3 days Post-Op Day: * No surgery found * SUBJECTIVE Events Overnight: This 74-year-old gentleman with a known history of insulin-dependen t diabetes mellitus, advanced peripheral vascular disease, osteomyelitis of right foot, diab etic foot ulcers which are significant and advanced in both feet, left hemiparesis, essentia l hypertension, hyperkalemia, history of GERD and non-STEMI MO, history of bacteremia, histo ry of stroke. [...] Color, UA STRAW Clarity, UA CLEAR Specific [place], Urine 1.006 1.002 - 1.030 Leukocyte esterase, [...] of congestive failure. Signed by: Madison Solis, [facility] Sign Date/Time: 04/09/2019 9:25 AM PROBLEM LIST [...] longstanding history of diabetes, hypertension, GERD, ac moapa left hemiparesis, essential hypertension and very advanced [...] might be different from the terry miller [facility]: Vascular Surgery Progress Note SUBJECTIVE Patient Summary: 74 y.o. man with complex medical issues and LE ischemic ulcers, he wa s recently admitted to the [facility] from 03/28/19 to 04/04/19 where he was treated/ diagnosed with systolic heart failure, type 2 MO/NSTEMI, SHAE, ARF. O2 desaturation brought him from [...] will have him scheduled for 04/12/2019 at [facility] Disassembler for his first leg, then will plan [...] Hospitalist Progress Note Reagan Shepard 74 y.o. [id number] male Jamar Manuel MD Hospital Day: LOS: 3 days Patient Summary: 74-year-old gentleman with past medical history of bilateral nonheali ng diabetic foot ulcer, and history of traumatic brain injury, stroke, diabetes mellitus typ e 2 insulin-dependent who was recently admitted to [facility] from 03/28/21 020 with acute hypoxic respiratory failure secondary to systolic CHF exacerbation with eject ion fraction of 40%, CTA chest negative for PE, troponin was minimally elevated 0.44 treated conservatively with medical therapy discharge to [facility] who went back to [facility] emergency department with worsening shortness of breath [...] infectious disease. Patient was evaluated by Dr. Nwe Ruelas from cardiology who recommend medical ma [...] 04/09/2019 1044 Gross per 24 hour Intake 23611 ml Output 9850 ml Net 856 ml [...] received 8 days of IV antibiotic at [facility] discharged home on on Augmentin readmitted [...] might be different from the o sheryl. [facility] Service: Podiatry Progress Note Hospital Day: LOS: 3 days Post-Op Day: * No surgery found * SUBJECTIVE Patient Summary: The patient is 74 y.o. male with significant cardiac and IDDM2 past medical history with recent admissions to [facility] where he was found to have el evated troponin level and he became decompensated and desaturated and was transferred to [facility] for a higher level of care. [...] Ady Mata RN - 04/08/2019 9:49 PM [id number]: pt a/o to [facility] in [...] Hospitalist Progress Note Reagan Shepard 74 y.o. [id number] male Jamar Manuel MD Hospital Day: LOS: 2 days Patient Summary: 74-year-old gentleman with past medical history of bilateral nonheali ng diabetic foot ulcer, and history of traumatic brain injury, stroke, diabetes mellitus typ e 2 insulin-dependent who was recently admitted to [facility] from 03/28/21 020 with acute hypoxic respiratory failure secondary to systolic CHF exacerbation with eject ion fraction of 40%, CTA chest negative for PE, troponin was minimally elevated 0.44 treated conservatively with medical therapy [facility] [facility] emergency department with worsening shortness of breath [...] received 8 days of IV antibiotic at [facility] discharged home on on Augmentin readmitted [...] might be different from trina allen original. [facility]: Cardiology Progress Note Hospital Day: [...] Nandini Barboza RN - 04/07/2019 10:48 PM [id number]: pt a/o to all, occasionally forgetful, vss. [...] Hospitalist Progress Note Reagan Shepard 74 y.o. [id number] male Jamar Manuel MD Hospital Day: LOS: 1 day Patient Summary: 74-year-old gentleman with past medical history of bilateral nonheali ng diabetic foot ulcer, and history of traumatic brain injury, stroke, diabetes mellitus typ e 2 insulin-dependent who was recently admitted to [facility] from 03/28/21 020 with acute hypoxic respiratory failure secondary to systolic CHF exacerbation with eject ion fraction of 40%, CTA chest negative for PE, troponin was minimally elevated 0.44 treated conservatively with medical therapy discharge to [facility] who went back to [facility] emergency department with worsening shortness of breath [...] received 8 days of IV antibiotic at [facility] discharged home on on Augmentin readmitted [...] might be different from trina allen original. [facility]: Cardiology Progress Note Hospital Day: [...] Andrés Novoa RN - 04/06/2019 10:15 AM [facility] Service: Wound/Ostomy Care Progress Note Wound [...] | | | | | PST | ([facility]) Peripheral | | | | | | vascular disease | | | | | | ([facility]) Other | | | | | | osteomyelitis of | | | | | | right foot ([facility]) | | | | | | Essential | | | | | | hypertension Acute | | | | | | left hemiparesis | | | | | | ([facility]) | | + +--------+ + + + [...] at [facility] | | | | | | [facility];[place], [place] | | | | | | [address] | | | | + + + + + + + + | Specimen | + + | Blood | + + + + + + + | Performing | Address | City/State/Zipcode | Phone Number | | Organization | | | | + + + + + | [facility] | [address] | [place] [address] | [phone] | + + + + + POC Glucose (04/21/2019 11:54 AM PST) + + + + + + | Component | Value | Ref Range | Performed | Pathologist | | | | | At | Signature | + + + + + + | Glucose, | 164 (H)Comment: Testing | 65 - 99 mg/dL | [facility] | | | POC | performed at [facility];[address] | | LABORATORY | | | | [address];[place], [place] | | | | | | [address] | | | | + + + + + + + + | Specimen | + + | | + + + + + + + | Performing | Address | City/State/Zipcode | Phone Number | | Organization | | | | + + + + + | [facility] | [address] | [place] [address] | [phone] | + + + + + POC Glucose (04/21/2019 8:10 AM PST) + + + + + + | Component | Value | Ref Range | Performed | Pathologist | | | | | At | Signature | + + + + + + | Glucose, | 131 (H)Comment: Testing | 65 - 99 mg/dL | [facility] | | | POC | performed at [facility];[address] | | LABORATORY | | | | [address];[place] | | | | | | [address] | | | | + + + + + + + + | Specimen | + + | | + + + + + + + | Performing | Address | City/State/Zipcode | Phone Number | | Organization | | | | + + + + + | [facility] | [address] | [place] [address] | [phone] | + + + + + POC [...] | LABORATORY | | | | [address];[place], [place] | | | | | | [address] | | | | + + + + + + + + | Specimen | + + | | + + + + + + + | Performing | Address | City/State/Zipcode | Phone Number | | Organization | | | | + + + + + | [facility] | [address] | [place] [address] | [phone] | + + + + + POC [...] | LABORATORY | | | | [address];[place] | | | | | | [address] | | | | + + + + + + + + | Specimen | + + | | + + + + + + + | Performing | Address | City/State/Zipcode | Phone Number | | Organization | | | | + + + + + | [facility] | [address] | [place] [address] | [phone] | + + + + + POC [...] | LABORATORY | | | | [address];[place], [place] | | | | | | [address] | | | | + + + + + + + + | Specimen | + + | | + + + + + + + | Performing | Address | City/State/Zipcode | Phone Number | | Organization | | | | + + + + + | [facility] | [address] | [place] [address] | [phone] | + + + + + POC [...] | LABORATORY | | | | [address];[place], [place] | | | | | | [address] | | | | + + + + + + + + | Specimen | + + | | + + + + + + + | Performing | Address | City/State/Zipcode | Phone Number | | Organization | | | | + + + + + | [facility] | [address] | [place] [address] | [phone] | + + + + + POC Glucose (04/20/2019 12:44 PM PST) + + + + + + | Component | Value | Ref Range | Performed | Pathologist | | | | | At | Signature | + + + + + + | Glucose, | 273 (H)Comment: Testing | 65 - 99 mg/dL | [facility] | | | POC | performed at [facility];[address] | | LABORATORY | | | | [address];[place], [place] | | | | | | [address] | | | | + + + + + + + + | Specimen | + + | | + + + + + + + | Performing | Address | City/State/Zipcode | Phone Number | | Organization | | | | + + + + + | [facility] | [address] | [place] [address] | [phone] | + + + + + Vancomycin [...] LABORATORY | | | Serum | [address];[place] | | | | | | [address] | | | | + + + + + + + + | Specimen | + + | Blood | + + + + + + + | Performing | Address | City/State/Zipcode | Phone Number | | Organization | | | | + + + + + | [facility] | [address] | [place] [address] | [phone] | + + + + + POC [...] [place] | | | | | | [address] | | | | + + + + + + + + | Specimen | + + | | + + + + + + + | Performing | Address | City/State/Zipcode | Phone Number | | Organization | | | | + + + + + | [facility] | [address] | [place] [address] | [phone] | + + + + + POC Glucose (04/20/2019 8:16 AM PST) + + + + + + | Component | Value | Ref Range | Performed | Pathologist | | | | | At | Signature | + + + + + + | Glucose, | 300 (H)Comment: Testing | 65 - 99 mg/dL | [facility] | | | POC | performed at [facility];[address] | | LABORATORY | | | | [address];[place] | | | | | | [address] | | | | + + + + + + + + | Specimen | + + | | + + + + + + + | Performing | Address | City/State/Zipcode | Phone Number | | Organization | | | | + + + + + | [facility] | [address] | [place] [address] | [phone] | + + + + + POC [...] | LABORATORY | | | | [address];[place], [place] | | | | | | [address] | | | | + + + + + + + + | Specimen | + + | | + + + + + + + | Performing | Address | City/State/Zipcode | Phone Number | | Organization | | | | + + + + + | [facility] | [address] | [place] [address] | [phone] | + + + + + POC [...] [place] | | | | | | [address] | | | | + + + + + + + + | Specimen | + + | | + + + + + + + | Performing | Address | City/State/Zipcode | Phone Number | | Organization | | | | + + + + + | [facility] | [address] | [place] [address] | [phone] | + + + + + POC Glucose (04/19/2019 12:44 PM PST) + + + + + + | Component | Value | Ref Range | Performed | Pathologist | | | | | At | Signature | + + + + + + | Glucose, | 209 (H)Comment: Testing | 65 - 99 mg/dL | [facility] | | | POC | performed at [facility];[address] | | LABORATORY | | | | [address];[place], [place] | | | | | | [address] | | | | + + + + + + + + | Specimen | + + | | + + + + + + + | Performing | Address | City/State/Zipcode | Phone Number | | Organization | | | | + + + + + | [facility] | [address] | [place] [address] | [phone] | + + + + + POC [...] | LABORATORY | | | | [address];[place], [place] | | | | | | [address] | | | | + + + + + + + + | Specimen | + + | | + + + + + + + | Performing | Address | City/State/Zipcode | Phone Number | | Organization | | | | + + + + + | [facility] | [address] | [place] [address] | [phone] | + + + + + Basic [...] | >60Comment: GFR <60: | >60 | [facility] | | | GFR | CHRONIC [...] | | | | | | MDRD [facility] traceable | | | | | | equation.Testing | | | | | | performed at [facility], [address] | | | | | | [facility], | | | | | | [place] [address] | | | | + + + + + + + + | Specimen | + + | Blood | + + + + + + + | Performing | Address | City/State/Zipcode | Phone Number | | Organization | | | | + + + + + | [facility] | [address] | [place] [address] | [phone] | + + + + + CBC [...] | | | | | performed at [facility], [address] | | | | | | [facility], | | | | | | [place] [address] | | | | | |MICRO | | | | | |NORMAL PLT MORPH | | | | | |Testing performed at [facility], [address] [facility], [place] [address] | | | | | | | | | | + + +---- + + + + + | Specimen | + + | Blood | + + + + + + + | Performing | Address | City/State/Zipcode | Phone Number | | Organization | | | | + + + + + | [facility] | [address] | [place] [address] | [phone] | + + + + + POC [...] [place] | | | | | | [address] | | | | + + + + + + + + | Specimen | + + | | + + + + + + + | Performing | Address | City/State/Zipcode | Phone Number | | Organization | | | | + + + + + | [facility] | [address] | [place] [address] | [phone] | + + + + + POC Glucose (04/18/2019 9:02 PM PST) + + + + + + | Component | Value | Ref Range | Performed | Pathologist | | | | | At | Signature | + + + + + + | Glucose, | 295 (H)Comment: Testing | 65 - 99 mg/dL | [facility] | | | POC | performed at [facility];[address] | | LABORATORY | | | | [address];[place] | | | | | | [address] | | | | + + + + + + + + | Specimen | + + | | + + + + + + + | Performing | Address | City/State/Zipcode | Phone Number | | Organization | | | | + + + + + | [facility] | [address] | [place] [address] | [phone] | + + + + + POC Glucose (04/18/2019 8:01 PM PST) + + + + + + | Component | Value | Ref Range | Performed | Pathologist | | | | | At | Signature | + + + + + + | Glucose, | 245 (H)Comment: Testing | 65 - 99 mg/dL | [facility] | | | POC | performed at [facility];[address] | | LABORATORY | | | | [address];[place] | | | | | | [address] | | | | + + + + + + + + | Specimen | + + | | + + + + + + + | Performing | Address | City/State/Zipcode | Phone Number | | Organization | | | | + + + + + | [facility] | [address] | [place] [address] | [phone] | + + + + + POC [...] | LABORATORY | | | | [address];[place], [place] | | | | | | [address] | | | | + + + + + + + + | Specimen | + + | | + + + + + + + | Performing | Address | City/State/Zipcode | Phone Number | | Organization | | | | + + + + + | [facility] | [address] | [place] [address] | [phone] | + + + + + POC [...] [place] | | | | | | [address] | | | | + + + + + + + + | Specimen | + + | | + + + + + + + | Performing | Address | City/State/Zipcode | Phone Number | | Organization | | | | + + + + + | [facility] | [address] | [place] [address] | [phone] | + + + + + NM [...] | LABORATORY | | | | [address];[place], [place] | | | | | | [address] | | | | + + + + + + + + | Specimen | + + | | + + + + + + + | Performing | Address | City/State/Zipcode | Phone Number | | Organization | | | | + + + + + | [facility] | [address] | [place] [address] | [phone] | + + + + + Basic [...] 8.0 (L) | 8.5 - 10.5 | [facility] | | | | | mg/dL | LABORATORY | | + + + + + + | Estimated | >60Comment: GFR <60: | >60 | [facility] | | | GFR | CHRONIC [...] at [facility] | | | | | | [facility];[place], [place] | | | | | | [address] | | | | + + + + + + + + | Specimen | + + | Blood | + + + + + + + | Performing | Address | City/State/Zipcode | Phone Number | | Organization | | | | + + + + + | [facility] | [address] | [place] [address] | [phone] | + + + + + CBC [...] [place] | | | | | | [address] | | | | + + + + + + + + | Specimen | + + | Blood | + + + + + + + | Performing | Address | City/State/Zipcode | Phone Number | | Organization | | | | + + + + + | [facility] | [address] | [place] [address] | [phone] | + + + + + POC [...] | LABORATORY | | | | [address];[place], [place] | | | | | | [address] | | | | + + + + + + + + | Specimen | + + | | + + + + + + + | Performing | Address | City/State/Zipcode | Phone Number | | Organization | | | | + + + + + | [facility] | [address] | [place] [address] | [phone] | + + + + + POC [...] [place] | | | | | | [address] | | | | + + + + + + + + | Specimen | + + | | + + + + + + + | Performing | Address | City/State/Zipcode | Phone Number | | Organization | | | | + + + + + | [facility] | [address] | [place] [address] | [phone] | + + + + + Vancomycin, [...] at [facility] | | | | | | [facility];[place], [place] | | | | | | [address] | | | | + + + + + + + + | Specimen | + + | Blood | + + + + + + + | Performing | Address | City/State/Zipcode | Phone Number | | Organization | | | | + + + + + | [facility] | [address] | [place] [address] | [phone] | + + + + + POC Glucose (04/17/2019 12:05 PM PST) + + + + + + | Component | Value | Ref Range | Performed | Pathologist | | | | | At | Signature | + + + + + + | Glucose, | 200 (H)Comment: Testing | 65 - 99 mg/dL | [facility] | | | POC | performed at [facility];[address] | | LABORATORY | | | | [address];[place] | | | | | | [address] | | | | + + + + + + + + | Specimen | + + | | + + + + + + + | Performing | Address | City/State/Zipcode | Phone Number | | Organization | | | | + + + + + | [facility] | [address] | [place] [address] | [phone] | + + + + + POC [...] | LABORATORY | | | | [address];[place] | | | | | | [address] | | | | + + + + + + + + | Specimen | + + | | + + + + + + + | Performing | Address | City/State/Zipcode | Phone Number | | Organization | | | | + + + + + | [facility] | [address] | [place] [address] | [phone] | + + + + + POC [...] | LABORATORY | | | | [address];[place], [place] | | | | | | [address] | | | | + + + + + + + + | Specimen | + + | | + + + + + + + | Performing | Address | City/State/Zipcode | Phone Number | | Organization | | | | + + + + + | [facility] | [address] | [place] [address] | [phone] | + + + + + Basic [...] | >60Comment: GFR <60: | >60 | [facility] | | | GFR | CHRONIC [...] | | | | | performed at [facility], [address] | | | | | | [facility], | | | | | | [place] [address] | | | | + + + + + + + + | Specimen | + + | Blood | + + + + + + + | Performing | Address | City/State/Zipcode | Phone Number | | Organization | | | | + + + + + | [facility] | [address] | [place] [address] | [phone] | + + + + + CBC [...] | | | | | performed at [facility], [facility] [address] | | | | | | [facility], | | | | | | [place] [address] | | | | | |MICRO | | | | | |NORMAL PLT MORPH | | | | | |Testing performed at [facility], [facility] [address] | | | | | | | | | | + + +---- + + + + + | Specimen | + + | Blood | + + + + + + + | Performing | Address | City/State/Zipcode | Phone Number | | Organization | | | | + + + + + | [facility] | [address] | [place] [address] | [phone] | + + + + + POC Glucose (04/16/2019 8:57 PM PST) + + + + + + | Component | Value | Ref Range | Performed | Pathologist | | | | | At | Signature | + + + + + + | Glucose, | 96Comment: Testing | 65 - 99 mg/dL | [facility] | | | POC | performed at [facility];[address] | | LABORATORY | | | | [address];[place] | | | | | | [address] | | | | + + + + + + + + | Specimen | + + | | + + + + + + + | Performing | Address | City/State/Zipcode | Phone Number | | Organization | | | | + + + + + | [facility] | [address] | [place] [address] | [phone] | + + + + + POC [...] | LABORATORY | | | | [address];[place], [place] | | | | | | [address] | | | | + + + + + + + + | Specimen | + + | | + + + + + + + | Performing | Address | City/State/Zipcode | Phone Number | | Organization | | | | + + + + + | [facility] | [address] | [place] [address] | [phone] | + + + + + POC [...] | LABORATORY | | | | [address];[place], [place] | | | | | | [address] | | | | + + + + + + + + | Specimen | + + | | + + + + + + + | Performing | Address | City/State/Zipcode | Phone Number | | Organization | | | | + + + + + | [facility] | [address] | [place] [address] | [phone] | + + + + + POC [...] | LABORATORY | | | | [address];[place], [place] | | | | | | [address] | | | | + + + + + + + + | Specimen | + + | | + + + + + + + | Performing | Address | City/State/Zipcode | Phone Number | | Organization | | | | + + + + + | [facility] | [address] | [place] [address] | [phone] | + + + + + CBC [...] | | | | | performed at [facility], [address] | | | | | | [facility], | | | | | | [place] [address] | | | | | |MICRO | | | | | |NORMAL PLT MORPH | | | | | |Testing performed at [facility], [address] [facility], [place] [address] | | | | | | | | | | + + +---- + + + + + | Specimen | + + | Blood | + + + + + + + | Performing | Address | City/State/Zipcode | Phone Number | | Organization | | | | + + + + + | [facility] | [address] | [place] [address] | [phone] | + + + + + Basic [...] | + + + + + | [facility] | [address] | [place] [address] | [phone] | + + + + + POC Glucose (04/15/2019 9:03 PM PST) + + + + + + | Component | Value | Ref Range | Performed | Pathologist | | | | | At | Signature | + + + + + + | Glucose, | 171 (H)Comment: Testing | 65 - 99 mg/dL | [facility] | | | POC | performed at [facility];[address] | | LABORATORY | | | | [address];[place], [place] | | | | | | [address] | | | | + + + + + + + + | Specimen | + + | | + + + + + + + | Performing | Address | City/State/Zipcode | Phone Number | | Organization | | | | + + + + + | [facility] | [address] | [place] [address] | [phone] | + + + + + POC [...] | LABORATORY | | | | [address];[place], [place] | | | | | | [address] | | | | + + + + + + + + | Specimen | + + | | + + + + + + + | Performing | Address | City/State/Zipcode | Phone Number | | Organization | | | | + + + + + | [facility] | [address] | [place] [address] | [phone] | + + + + + POC Glucose (04/15/2019 1:19 PM PST) + + + + + + | Component | Value | Ref Range | Performed | Pathologist | | | | | At | Signature | + + + + + + | Glucose, | 227 (H)Comment: Testing | 65 - 99 mg/dL | [facility] | | | POC | performed at [facility];[address] | | LABORATORY | | | | [address];[place], [place] | | | | | | [address] | | | | + + + + + + + + | Specimen | + + | | + + + + + + + | Performing | Address | City/State/Zipcode | Phone Number | | Organization | | | | + + + + + | [facility] | [address] | [place] [address] | [phone] | + + + + + Type [...] + + + | BB BAND | [id number] | | [facility] | | | | | | LABORATORY | | + + + + + + | UNIT # | [id number] | | [facility] | | | | [...] + + + | UNIT # | [id number] | | [facility] | | | | [...] + + + | UNIT # | [id number] | | [facility] | | | | [...] [place] | | | | | | [address] | | | | + + + + + + + + | Specimen | + + | Blood | + + + + + + + | Performing | Address | City/State/Zipcode | Phone Number | | Organization | | | | + + + + + | [facility] | [address] | [place] [address] | [phone] | + + + + + Red [...] | ORDER RECEIVED IN BLOOD | | [facility] | | | COMMENT | BANK. | | LABORATORY | | + + + + + + | BLOOD BANK | Testing performed at | | [facility] | | | COMMENT | [facility];[address] | | LABORATORY | | | [address];[place] [address] | | | | + + + + + + + + | Specimen | + + | | + + + + + + + | Performing | Address | City/State/Zipcode | Phone Number | | Organization | | | | + + + + + | [facility] | [address] | [place] [address] | [phone] | + + + + + POC [...] | LABORATORY | | | | [address];[place], [place] | | | | | | [address] | | | | + + + + + + + + | Specimen | + + | | + + + + + + + | Performing | Address | City/State/Zipcode | Phone Number | | Organization | | | | + + + + + | [facility] | [address] | [place] [address] | [phone] | + + + + + Vancomycin, [...] [place] | | | | | | [address] | | | | + + + + + + + + | Specimen | + + | Blood | + + + + + + + | Performing | Address | City/State/Zipcode | Phone Number | | Organization | | | | + + + + + | [facility] | [address] | [place] [address] | [phone] | + + + + + CBC [...] at [facility] | | LABORATORY | | | | Kiara Jaramillo;[place] | | | | | | [address] | | | | + + + + + + + + | Specimen | + + | Blood | + + + + + + + | Performing | Address | City/State/Zipcode | Phone Number | | Organization | | | | + + + + + | [facility] | [address] | [place] [address] | [phone] | + + + + + Basic [...] 8.1 (L) | 8.5 - 10.5 | [facility] | | | | | mg/dL | LABORATORY | | + + + + + + | Estimated | >60Comment: GFR <60: | >60 | [facility] | | | GFR | CHRONIC [...] at [facility];[address] | | | | | | [facility];[place], [place] | | | | | | [address] | | | | + + + + + + + + | Specimen | + + | Blood | + + + + + + + | Performing | Address | City/State/Zipcode | Phone Number | | Organization | | | | + + + + + | [facility] | [address] | [place] [address] | [phone] | + + + + + POC [...] | LABORATORY | | | | Kiara Jaramillo;[place] | | | | | | [address] | | | | + + + + + + + + | Specimen | + + | | + + + + + + + | Performing | Address | City/State/Zipcode | Phone Number | | Organization | | | | + + + + + | [facility] | [address] | [place] [address] | [phone] | + + + + + POC [...] | LABORATORY | | | | [address];[place], [place] | | | | | | [address] | | | | + + + + + + + + | Specimen | + + | | + + + + + + + | Performing | Address | City/State/Zipcode | Phone Number | | Organization | | | | + + + + + | [facility] | [address] | [place] [address] | [phone] | + + + + + POC [...] | LABORATORY | | | | [address];[place] | | | | | | [address] | | | | + + + + + + + + | Specimen | + + | | + + + + + + + | Performing | Address | City/State/Zipcode | Phone Number | | Organization | | | | + + + + + | [facility] | [address] | [place] [address] | [phone] | + + + + + ECHO [...] + | Performing | Address | City/State/[facility] | Phone Number | | [...] | LABORATORY | | | | [address];[place] | | | | | | [address] | | | | + + + + + + + + | Specimen | + + | | + + + + + + + | Performing | Address | City/State/Zipcode | Phone Number | | Organization | | | | + + + + + | [facility] | [address] | [place] [address] | [phone] | + + + + + B Type Natriuretic Peptide (04/14/2019 6:29 AM PST) + + + + + + | Component | Value | Ref Range | Performed | Pathologist | | | | | At | Signature | + + + + + + | BNP | 587.58 (H)Comment: | 0 - 100 pg/mL | [facility] | | | | Testing performed at | | LABORATORY | | | | [facility];[address];[place] [address] | | | | + + + + + + + + | Specimen | + + | | + + + + + + + | Performing | Address | City/State/Zipcode | Phone Number | | Organization | | | | + + + + + | [facility] | [address] | [place] [address] | [phone] | + + + + + CBC [...] at [facility] | | LABORATORY | | | | [address];[place], [place] | | | | | | [address] | | | | + + + + + + + + | Specimen | + + | | + + + + + + + | Performing | Address | City/State/Zipcode | Phone Number | | Organization | | | | + + + + + | [facility] | [address] | [place] [address] | [phone] | + + + + + Troponin [...] [address] | | | | | [address];[place] [address] | | | | + + + + + + + + | Specimen | + + | Blood | + + + + + + + | Performing | Address | City/State/Zipcode | Phone Number | | Organization | | | | + + + + + | [facility] | [address] | [place] [address] | [phone] | + + + + + Basic [...] | | | | | | MDRD [facility] traceable | | | | | | equation.Testing | | | | | | performed at [facility];[address] | | | | | | [address];[place], [place] | | | | | | [address] | | | | + + + + + + + + | Specimen | + + | Blood | + + + + + + + | Performing | Address | City/State/Zipcode | Phone Number | | Organization | | | | + + + + + | [facility] | [address] | [place] [address] | [phone] | + + + + + Vancomycin [...] | LABORATORY | | | Serum | [address];[place], [place] | | | | | | [address] | | | | + + + + + + + + | Specimen | + + | Blood | + + + + + + + | Performing | Address | City/State/Zipcode | Phone Number | | Organization | | | | + + + + + | [facility] | [address] | [place] [address] | [phone] | + + + + + POC [...] | LABORATORY | | | | [address];[place] | | | | | | [address] | | | | + + + + + + + + | Specimen | + + | | + + + + + + + | Performing | Address | City/State/Zipcode | Phone Number | | Organization | | | | + + + + + | [facility] | [address] | [place] [address] | [phone] | + + + + + Troponin I (04/14/2019 1:19 AM PST) + + + + + + | Component | Value | Ref Range | Performed | Pathologist | | | | | At | Signature | + + + + + + | Troponin I | 0.015Comment: 0.04 | 0.00 - 0.04 | [facility] | | | | ng/mL or [...] | [facility];[address] | | | | | | Blvd;[place] [address] | | | | + + + + + + + + | Specimen | + + | Blood | + + + + + + + | Performing | Address | City/State/Zipcode | Phone Number | | Organization | | | | + + + + + | [facility] | [address] | [place] [address] | [phone] | + + + + + ECG [...] [place] | | | | | | [address] | | | | + + + + + + + + | Specimen | + + | | + + + + + + + | Performing | Address | City/State/Zipcode | Phone Number | | Organization | | | | + + + + + | [facility] | [address] | [place] [address] | [phone] | + + + + + POC Glucose (04/13/2019 4:19 PM PST) + + + + + + | Component | Value | Ref Range | Performed | Pathologist | | | | | At | Signature | + + + + + + | Glucose, | 109 (H)Comment: Testing | 65 - 99 mg/dL | [facility] | | | POC | performed at [facility];[address] | | LABORATORY | | | | [address];[place] | | | | | | [address] | | | | + + + + + + + + | Specimen | + + | | + + + + + + + | Performing | Address | City/State/Zipcode | Phone Number | | Organization | | | | + + + + + | [facility] | [address] | [place] [address] | [phone] | + + + + + XR [...] + + | Performing | Address | City/State[facility] | Phone Number | | Organization [...] catheterization with right leg runoff4. Right SFA DATA PROCESSING CLERK | | | crossing and atherectomy using Bard 14 S crossing catheter SURGEON: | | | Simba Cheng MD TACTICAL DEBRIEFER OFFICER: None ANESTHESIA: Moderate sedation and local | [...] | | identified and brought to the Disassembler. The patient was placed supine | | [...] sized to a 4 | | | Marshallese sheath. A Omni flush catheter was then [...] inserted over the catheter and the 4 Marshallese sheath was | | | removed. A 7 Marshallese destination sheath was then inserted over the [...] | LABORATORY | | | | [address];[place] | | | | | | [address] | | | | + + + + + + + + | Specimen | + + | | + + + + + + + | Performing | Address | City/State/Zipcode | Phone Number | | Organization | | | | + + + + + | [facility] | [address] | [place] [address] | [phone] | + + + + + POC Glucose (04/13/2019 7:59 AM PST) + + + + + + | Component | Value | Ref Range | Performed | Pathologist | | | | | At | Signature | + + + + + + | Glucose, | 124 (H)Comment: Testing | 65 - 99 mg/dL | [facility] | | | POC | performed at [facility];[address] | | LABORATORY | | | | [address];[place] | | | | | | [address] | | | | + + + + + + + + | Specimen | + + | | + + + + + + + | Performing | Address | City/State/Zipcode | Phone Number | | Organization | | | | + + + + + | [facility] | [address] | [place] [address] | [phone] | + + + + + Basic [...] | | | | | performed at [facility], [address] | | | | | | [address], | | | | | | [place] [address] | | | | + + + + + + + + | Specimen | + + | Blood | + + + + + + + | Performing | Address | City/State/Zipcode | Phone Number | | Organization | | | | + + + + + | [facility] | [address] | [place] [address] | [phone] | + + + + + CBC [...] | | | | | performed at [facility], [facility] [address] | | | | | | [facility], | | | | | | [place] [address] | | | | | |MICRO | | | | | |NORMAL PLT MORPH | | | | | |Testing performed at [facility], [facility] [place] [address] | | | | | | | | | | + + +---- + + + + + | Specimen | + + | Blood | + + + + + + + | Performing | Address | City/State/Zipcode | Phone Number | | Organization | | | | + + + + + | [facility] | [address] | [place] [address] | [phone] | + + + + + POC Glucose (04/13/2019 3:30 AM PST) + + + + + + | Component | Value | Ref Range | Performed | Pathologist | | | | | At | Signature | + + + + + + | Glucose, | 147 (H)Comment: Testing | 65 - 99 mg/dL | [facility] | | | POC | performed at [facility];[address] | | LABORATORY | | | | [address];[place], [place] | | | | | | [address] | | | | + + + + + + + + | Specimen | + + | | + + + + + + + | Performing | Address | City/State/Zipcode | Phone Number | | Organization | | | | + + + + + | [facility] | [address] | [place] [address] | [phone] | + + + + + POC [...] | LABORATORY | | | | [address];[place], [place] | | | | | | [address] | | | | + + + + + + + + | Specimen | + + | | + + + + + + + | Performing | Address | City/State/Zipcode | Phone Number | | Organization | | | | + + + + + | [facility] | [address] | [place] [address] | [phone] | + + + + + POC Glucose (04/12/2019 4:28 PM PST) + + + + + + | Component | Value | Ref Range | Performed | Pathologist | | | | | At | Signature | + + + + + + | Glucose, | 211 (H)Comment: Testing | 65 - 99 mg/dL | [facility] | | | POC | performed at [facility];[address] | | LABORATORY | | | | [address];[place] | | | | | | [address] | | | | + + + + + + + + | Specimen | + + | | + + + + + + + | Performing | Address | City/State/Zipcode | Phone Number | | Organization | | | | + + + + + | [facility] | [address] | [place] [address] | [phone] | + + + + + POC Glucose (04/12/2019 11:53 AM PST) + + + + + + | Component | Value | Ref Range | Performed | Pathologist | | | | | At | Signature | + + + + + + | Glucose, | 162 (H)Comment: Testing | 65 - 99 mg/dL | [facility] | | | POC | performed at [facility];[address] | | LABORATORY | | | | [address];[place], [place] | | | | | | [address] | | | | + + + + + + + + | Specimen | + + | | + + + + + + + | Performing | Address | City/State/Zipcode | Phone Number | | Organization | | | | + + + + + | [facility] | [address] | [place] [address] | [phone] | + + + + + POC [...] | LABORATORY | | | | [address];[place], [place] | | | | | | [address] | | | | + + + + + + + + | Specimen | + + | | + + + + + + + | Performing | Address | City/State/Zipcode | Phone Number | | Organization | | | | + + + + + | [facility] | [address] | [place] [address] | [phone] | + + + + + Basic [...] | >60Comment: GFR <60: | >60 | [facility] | | | GFR | CHRONIC [...] | | | | | performed at [facility], [address] | | | | | | [facility], | | | | | | [place] [address] | | | | + + + + + + + + | Specimen | + + | Blood | + + + + + + + | Performing | Address | City/State/Zipcode | Phone Number | | Organization | | | | + + + + + | [facility] | [address] | [place] [address] | [phone] | + + + + + CBC [...] | | | | | performed at [facility] [address] | | | | | | [facility], | | | | | | [place] [address] | | | | | |MICRO | | | | | |NORMAL PLT MORPH | | | | | |Testing performed at [facility], [facility] [place] [address] | | | | | | | | | | + + +---- + + + + + | Specimen | + + | Blood | + + + + + + + | Performing | Address | City/State/Zipcode | Phone Number | | Organization | | | | + + + + + | [facility] | [address] | [place] [address] | [phone] | + + + + + POC Glucose (04/11/2019 9:20 PM PST) + + + + + + | Component | Value | Ref Range | Performed | Pathologist | | | | | At | Signature | + + + + + + | Glucose, | 199 (H)Comment: Testing | 65 - 99 mg/dL | [facility] | | | POC | performed at [facility];[address] | | LABORATORY | | | | [address];[place] | | | | | | [address] | | | | + + + + + + + + | Specimen | + + | | + + + + + + + | Performing | Address | City/State/Zipcode | Phone Number | | Organization | | | | + + + + + | [facility] | [address] | [place] [address] | [phone] | + + + + + POC [...] | LABORATORY | | | | [address];[place] | | | | | | [address] | | | | + + + + + + + + | Specimen | + + | | + + + + + + + | Performing | Address | City/State/Zipcode | Phone Number | | Organization | | | | + + + + + | [facility] | [address] | [place] [address] | [phone] | + + + + + POC [...] | LABORATORY | | | | [address];[place] | | | | | | [address] | | | | + + + + + + + + | Specimen | + + | | + + + + + + + | Performing | Address | City/State/Zipcode | Phone Number | | Organization | | | | + + + + + | [facility] | [address] | [place] [address] | [phone] | + + + + + IR [...] x 150 mm | | | angioplasty [id number]. Left SFA stenting using 7 x 120 mm | | | self-expanding stent SURGEON: Simba Cheng MD TACTICAL DEBRIEFER OFFICER: None ANESTHESIA: | | | Moderate sedation [...] | | identified and brought to the Disassembler. The patient was placed supine | | [...] sized to a 4 | | | Marshallese sheath. A Omni flush catheter was then [...] inserted over the catheter and the 4 Marshallese sheath was | | | removed. A 7 Marshallese destination sheath was then inserted over the [...] using a | | | Glidewire and [place] catheter. A 0.009 wire was then passed [...] crossed using a | | |Glidewire and [place] catheter. A 0.009 wire was then passed [...] | LABORATORY | | | | [address];[place], [place] | | | | | | [address] | | | | + + + + + + + + | Specimen | + + | | + + + + + + + | Performing | Address | City/State/Zipcode | Phone Number | | Organization | | | | + + + + + | [facility] | [address] | [place] [address] | [phone] | + + + + + B Type Natriuretic Peptide (04/11/2019 5:48 AM PST) + + + + + + | Component | Value | Ref Range | Performed | Pathologist | | | | | At | Signature | + + + + + + | BNP | 220.45 (H)Comment: | 0 - 100 pg/mL | [facility] | | | | Testing performed at | | LABORATORY | | | | [facility];[address];[place] [address] | | | | + + + + + + + + | Specimen | + + | Blood | + + + + + + + | Performing | Address | City/State/Zipcode | Phone Number | | Organization | | | | + + + + + | [facility] | [address] | [place] [address] | [phone] | + + + + + Basic [...] | | | | | performed at [facility], [address] | | | | | | [address], | | | | | | [place] [address] | | | | + + + + + + + + | Specimen | + + | Blood | + + + + + + + | Performing | Address | City/State/Zipcode | Phone Number | | Organization | | | | + + + + + | [facility] | [address] | [place] [address] | [phone] | + + + + + CBC [...] | | | | | | at [facility], [address] | | | | | | [facility], | | | | | | [place] [address] | | | | | |Testing performed at [facility], [address] [facility], [place] [address] | | | | | | | | | | + + +---- + + + + + | Specimen | + + | Blood | + + + + + + + | Performing | Address | City/State/Zipcode | Phone Number | | Organization | | | | + + + + + | [facility] | [address] | [place] [address] | [phone] | + + + + + POC Glucose (04/10/2019 9:22 PM PST) + + + + + + | Component | Value | Ref Range | Performed | Pathologist | | | | | At | Signature | + + + + + + | Glucose, | 127 (H)Comment: Testing | 65 - 99 mg/dL | [facility] | | | POC | performed at [facility];[address] | | LABORATORY | | | | [address];[place] | | | | | | [address] | | | | + + + + + + + + | Specimen | + + | | + + + + + + + | Performing | Address | City/State/Zipcode | Phone Number | | Organization | | | | + + + + + | [facility] | [address] | [place] [address] | [phone] | + + + + + POC Glucose (04/10/2019 2:33 PM PST) + + + + + + | Component | Value | Ref Range | Performed | Pathologist | | | | | At | Signature | + + + + + + | Glucose, | 176 (H)Comment: Testing | 65 - 99 mg/dL | [facility] | | | POC | performed at [facility];[address] | | LABORATORY | | | | [address];[place] | | | | | | [address] | | | | + + + + + + + + | Specimen | + + | | + + + + + + + | Performing | Address | City/State/Zipcode | Phone Number | | Organization | | | | + + + + + | [facility] | [address] | [place] [address] | [phone] | + + + + + [place] [...] | LABORATORY | | | | [address];[place] | | | | | | [address] | | | | + + + + + + + + | Specimen | + + | | + + + + + + + | Performing | Address | City/State/Zipcode | Phone Number | | Organization | | | | + + + + + | [facility] | [address] | [place] [address] | [phone] | + + + + + CBC [...] | | | | | | [place] [address] | | | | + + + + + + + + | Specimen | + + | Blood | + + + + + + + | Performing | Address | City/State/Zipcode | Phone Number | | Organization | | | | + + + + + | [facility] | [address] | [place] [address] | [phone] | + + + + + POC Glucose (04/09/2019 9:57 PM PST) + + + + + + | Component | Value | Ref Range | Performed | Pathologist | | | | | At | Signature | + + + + + + | Glucose, | 151 (H)Comment: Testing | 65 - 99 mg/dL | [facility] | | | POC | performed at [facility];[address] | | LABORATORY | | | | [address];[place] | | | | | | [address] | | | | + + + + + + + + | Specimen | + + | | + + + + + + + | Performing | Address | City/State/Zipcode | Phone Number | | Organization | | | | + + + + + | [facility] | [address] | [place] [address] | [phone] | + + + + + POC [...] | LABORATORY | | | | [address];[place], [place] | | | | | | [address] | | | | + + + + + + + + | Specimen | + + | | + + + + + + + | Performing | Address | City/State/Zipcode | Phone Number | | Organization | | | | + + + + + | [facility] | [address] | [place] [address] | [phone] | + + + + + POC [...] [place] | | | | | | [address] | | | | + + + + + + + + | Specimen | + + | | + + + + + + + | Performing | Address | City/State/Zipcode | Phone Number | | Organization | | | | + + + + + | [facility] | [address] | [place] [address] | [phone] | + + + + + XR Chest AP Portable (04/09/2019 9:02 AM PST) + + | Specimen | + + | | + + + + + | Impressions | Performed At | + + + | Hypoventilatory exam, it would be difficult to exclude an element of | [facility] | | congestive failure. Signed by: Madison Solis, [facility] | | | Sign Date/Time: 04/09/2019 [...] | | | Urine | performed at [facility], [address] | | LABORATORY | | | | [address], | | | | | | [place] [address] | | | | + + + + + + + + | Specimen | + + | | + + + + + + + | Performing | Address | City/State/Zipcode | Phone Number | | Organization | | | | + + + + + | [facility] | [address] | [place] [address] | [phone] | + + + + + Urinalysis, [...] - 1.030 | [facility] | | | [place], | | | LABORATORY | | | [...] | + + + + + | [facility] | [address] | [place] [address] | [phone] | + + + + + Sedimentation Rate (04/09/2019 6:16 AM PST) + + + + + + | Component | Value | Ref Range | Performed | Pathologist | | | | | At | Signature | + + + + + + | ESR | 91 (H)Comment: Testing | 0 - 20 mm/Hr | [facility] | | | | performed at [facility], [address] | | LABORATORY | | | | [address], | | | | | | [place] [address] | | | | + + + + + + + + | Specimen | + + | Blood | + + + + + + + | Performing | Address | City/State/Zipcode | Phone Number | | Organization | | | | + + + + + | [facility] | [address] | [place] [address] | [phone] | + + + + + CBC [...] [facility] | | | | performed at [facility], [address] | | LABORATORY | | | | [address], | | | | | | [place] [address] | | | | + + + + + + + + | Specimen | + + | Blood | + + + + + + + | Performing | Address | City/State/Zipcode | Phone Number | | Organization | | | | + + + + + | [facility] | [address] | [place] [address] | [phone] | + + + + + Comprehensive [...] | | | | | performed at [facility], [address] | | | | | | [facility], | | | | | | [place] [address] | | | | + + + + + + + + | Specimen | + + | Blood | + + + + + + + | Performing | Address | City/State/Zipcode | Phone Number | | Organization | | | | + + + + + | [facility] | [address] | [place] [address] | [phone] | + + + + + POC Glucose (04/08/2019 10:09 PM PST) + + + + + + | Component | Value | Ref Range | Performed | Pathologist | | | | | At | Signature | + + + + + + | Glucose, | 168 (H)Comment: Testing | 65 - 99 mg/dL | [facility] | | | POC | performed at [facility];[address] | | LABORATORY | | | | [address];[place] | | | | | | [address] | | | | + + + + + + + + | Specimen | + + | | + + + + + + + | Performing | Address | City/State/Zipcode | Phone Number | | Organization | | | | + + + + + | [facility] | [address] | [place] [address] | [phone] | + + + + + Fecal Hemoglobin (04/08/2019 7:27 PM PST) + + + + + + | Component | Value | Ref Range | Performed | Pathologist | | | | | At | Signature | + + + + + + | FECAL | NEGATIVEComment: Testing | NEG | [facility] | | | OCCULT BLD | performed at [facility];[address] | | LABORATORY | | | | [address];[place] | | | | | | [address] | | | | + + + + + + + + | Specimen | + + | Stool - Stool | | specimen (specimen) | + + + + + + + | Performing | Address | City/State/Zipcode | Phone Number | | Organization | | | | + + + + + | [facility] | [address] | [place] [address] | [phone] | + + + + + POC Glucose (04/08/2019 6:34 PM PST) + + + + + + | Component | Value | Ref Range | Performed | Pathologist | | | | | At | Signature | + + + + + + | Glucose, | 179 (H)Comment: Testing | 65 - 99 mg/dL | [facility] | | | POC | performed at [facility];[address] | | LABORATORY | | | | [address];[place], [place] | | | | | | [address] | | | | + + + + + + + + | Specimen | + + | | + + + + + + + | Performing | Address | City/State/Zipcode | Phone Number | | Organization | | | | + + + + + | [facility] | [address] | [place] [address] | [phone] | + + + + + XR [...] Testing | 65 - 99 mg/dL | [facility] | | | POC | performed at [facility];[address] | | LABORATORY | | | | [address];[place], [place] | | | | | | [address] | | | | + + + + + + + + | Specimen | + + | | + + + + + + + | Performing | Address | City/State/Zipcode | Phone Number | | Organization | | | | + + + + + | [facility] | [address] | [place] [address] | [phone] | + + + + + XR [...] | LABORATORY | | | | [address];[place], [place] | | | | | | [address] | | | | + + + + + + + + | Specimen | + + | | + + + + + + + | Performing | Address | City/State/Zipcode | Phone Number | | Organization | | | | + + + + + | [facility] | [address] | [place] [address] | [phone] | + + + + + B Type Natriuretic Peptide (04/08/2019 5:45 AM PST) + + + + + + | Component | Value | Ref Range | Performed | Pathologist | | | | | At | Signature | + + + + + + | BNP | 580.26 (H)Comment: | 0 - 100 pg/mL | [facility] | | | | Testing performed at | | LABORATORY | | | | [facility];[address] | | | | | [address];[place] [address] | | | | + + + + + + + + | Specimen | + + | Blood | + + + + + + + | Performing | Address | City/State/Zipcode | Phone Number | | Organization | | | | + + + + + | [facility] | [address] | [place] [address] | [phone] | + + + + + CBC [...] [facility] | | | | performed at [facility], [address] | | LABORATORY | | | | [address], | | | | | | [place] [address] | | | | + + + + + + + + | Specimen | + + | Blood | + + + + + + + | Performing | Address | City/State/Zipcode | Phone Number | | Organization | | | | + + + + + | [facility] | [address] | [place] [address] | [phone] | + + + + + Comprehensive [...] | | | | | performed at [facility], [address] | | | | | | [address], | | | | | | [place] [address] | | | | + + + + + + + + | Specimen | + + | Blood | + + + + + + + | Performing | Address | City/State/Zipcode | Phone Number | | Organization | | | | + + + + + | [facility] | [address] | [place] [address] | [phone] | + + + + + POC [...] | LABORATORY | | | | [address];[place], [place] | | | | | | [address] | | | | + + + + + + + + | Specimen | + + | | + + + + + + + | Performing | Address | City/State/Zipcode | Phone Number | | Organization | | | | + + + + + | [facility] | [address] | [place] [address] | [phone] | + + + + + POC [...] [place] | | | | | | [address] | | | | + + + + + + + + | Specimen | + + | | + + + + + + + | Performing | Address | City/State/Zipcode | Phone Number | | Organization | | | | + + + + + | [facility] | [address] | [place] [address] | [phone] | + + + + + POC Glucose (04/07/2019 12:40 PM PST) + + + + + + | Component | Value | Ref Range | Performed | Pathologist | | | | | At | Signature | + + + + + + | Glucose, | 252 (H)Comment: Testing | 65 - 99 mg/dL | [facility] | | | POC | performed at [facility];[address] | | LABORATORY | | | | [address];[place], [place] | | | | | | [address] | | | | + + + + + + + + | Specimen | + + | | + + + + + + + | Performing | Address | City/State/Zipcode | Phone Number | | Organization | | | | + + + + + | [facility] | [address] | [place] [address] | [phone] | + + + + + XR [...] MRI Signed | | | by: Madison Arugeta, Jamar Sign Date/Time: 04/07/2019 1:43 PM | [...] Testing | 65 - 99 mg/dL | [facility] | | | POC | performed at [facility];[address] | | LABORATORY | | | | [address];[place] | | | | | | [address] | | | | + + + + + + + + | Specimen | + + | | + + + + + + + | Performing | Address | City/State/Zipcode | Phone Number | | Organization | | | | + + + + + | [facility] | [address] | [place] [address] | [phone] | + + + + + Magnesium (04/07/2019 5:02 AM PST) + + + + + + | Component | Value | Ref Range | Performed | Pathologist | | | | | At | Signature | + + + + + + | Magnesium | 2.1Comment: Testing | 1.7 - 2.4 mg/dL | [facility] | | | | performed at [facility], [address] | | LABORATORY | | | | [address], | | | | | | [place] [address] | | | | + + + + + + + + | Specimen | + + | Blood | + + + + + + + | Performing | Address | City/State/Zipcode | Phone Number | | Organization | | | | + + + + + | [facility] | [address] | [place] [address] | [phone] | + + + + + CBC [...] [place] | | | | | | [address] | | | | + + + + + + + + | Specimen | + + | Blood | + + + + + + + | Performing | Address | City/State/Zipcode | Phone Number | | Organization | | | | + + + + + | [facility] | [address] | [place] [address] | [phone] | + + + + + Comprehensive [...] Center, | | | | | | [place] [address] | | | | + + + + + + + + | Specimen | + + | Blood | + + + + + + + | Performing | Address | City/State/Zipcode | Phone Number | | Organization | | | | + + + + + | [facility] | [address] | [place] [address] | [phone] | + + + + + Iron, Total (04/07/2019 5:02 AM PST) + + + + + + | Component | Value | Ref Range | Performed | Pathologist | | | | | At | Signature | + + + + + + | Iron | 23 (L)Comment: Testing | 45 - 190 ug/dL | [facility] | | | | performed at [facility], [address] | | LABORATORY | | | | [address], | | | | | | [place] [address] | | | | + + + + + + + + | Specimen | + + | Blood | + + + + + + + | Performing | Address | City/State/Zipcode | Phone Number | | Organization | | | | + + + + + | [facility] | [address] | [place] [address] | [phone] | + + + + + POC [...] | LABORATORY | | | | [address];[place], [place] | | | | | | [address] | | | | + + + + + + + + | Specimen | + + | | + + + + + + + | Performing | Address | City/State/Zipcode | Phone Number | | Organization | | | | + + + + + | [facility] | [address] | [place] [address] | [phone] | + + + + + POC Glucose (04/06/2019 4:29 PM PST) + + + + + + | Component | Value | Ref Range | Performed | Pathologist | | | | | At | Signature | + + + + + + | Glucose, | 173 (H)Comment: Testing | 65 - 99 mg/dL | [facility] | | | POC | performed at [facility];[address] | | LABORATORY | | | | [address];[place] | | | | | | [address] | | | | + + + + + + + + | Specimen | + + | | + + + + + + + | Performing | Address | City/State/Zipcode | Phone Number | | Organization | | | | + + + + + | [facility] | [address] | [place] [address] | [phone] | + + + + + Culture, [...] | | LABORATORY | | | | Blvd;[place] [address] | | | | + + + [...] RESULT | Testing performed at | | [facility] | | | | [facility], [address] | | LABORATORY | | | | [place], [place] | | | | | | [id number]: Testing | | | | | | performed at [facility], [address] | | | | | [address] [place], [place] | | | | | | [address] | | | | + + + + + + + + | Specimen | + + | Body Fluid - Entire | | heel (body | | structure) | + + + + + + + | Performing | Address | City/State/Zipcode | Phone Number | | Organization | | | | + + + + + | [facility] | [address] | [place] [address] | [phone] | + + + + + Culture, [...] LABORATORY | | | | Blvd;[place] [address] | | | | + + + [...] Comment: Testing | | | performed at [facility], | | | [address], | | | [place] [address] | +---+ + + + + + + | Performing | Address | City/State/Zipcode | Phone Number | | Organization | | | | + + + + + | [facility] | [address] | [place] [address] | [phone] | + + + + + Ferritin (04/06/2019 2:30 PM PST) + + + + + + | Component | Value | Ref Range | Performed | Pathologist | | | | | At | Signature | + + + + + + | Ferritin | 62Comment: Testing | 11 - 450 ng/mL | [facility] | | | | performed at [facility], [address] | | LABORATORY | | | | [address], | | | | | | [place] [address] | | | | + + + + + + + + | Specimen | + + | Blood | + + + + + + + | Performing | Address | City/State/Zipcode | Phone Number | | Organization | | | | + + + + + | [facility] | [address] | [place] [address] | [phone] | + + + + + Vitamin [...] | 12.3Comment: Testing | >5.4 ng/mL | [facility] | | | | performed at [facility], [address] | | LABORATORY | | | | [address], | | | | | | [place] [address] | | | | + + + + + + + + | Specimen | + + | Blood | + + + + + + + | Performing | Address | City/State/Zipcode | Phone Number | | Organization | | | | + + + + + | [facility] | [address] | [place] [address] | [phone] | + + + + + Troponin I (04/06/2019 2:30 PM PST) + + + + + + | Component | Value | Ref Range | Performed | Pathologist | | | | | At | Signature | + + + + + + | Troponin I | 0.161 (H)Comment: 0.04 | 0.00 - 0.04 | [facility] | | | | ng/mL or [...] [address] | | | | | | [facility];[place] [address] | | | | + + + + + + + + | Specimen | + + | Blood | + + + + + + + | Performing | Address | City/State/Zipcode | Phone Number | | Organization | | | | + + + + + | [facility] | [address] | [place] [address] | [phone] | + + + + + POC Glucose (04/06/2019 11:28 AM PST) + + + + + + | Component | Value | Ref Range | Performed | Pathologist | | | | | At | Signature | + + + + + + | Glucose, | 175 (H)Comment: Testing | 65 - 99 mg/dL | [facility] | | | POC | performed at [facility];[address] | | LABORATORY | | | | [address];[place], [place] | | | | | | [address] | | | | + + + + + + + + | Specimen | + + | | + + + + + + + | Performing | Address | City/State/Zipcode | Phone Number | | Organization | | | | + + + + + | [facility] | [address] | [place] [address] | [phone] | + + + + + VAS [...] | LABORATORY | | | | [address];[place], [place] | | | | | | [address] | | | | + + + + + + + + | Specimen | + + | | + + + + + + + | Performing | Address | City/State/Zipcode | Phone Number | | Organization | | | | + + + + + | [facility] | [address] | [place] [address] | [phone] | + + + + + Troponin [...] | [facility];[address] | | | | | | [facility];[place] [address] | | | | + + + + + + + + | Specimen | + + | Blood | + + + + + + + | Performing | Address | City/State/Zipcode | Phone Number | | Organization | | | | + + + + + | [facility] | [address] | [place] [address] | [phone] | + + + + + XR [...] LABORATORY | | | | [address];[place] [address] | | | | + + + [...] [place] | | | | | | [id number]: Testing | | | | | | performed at [facility], [address] | | | | | | [address], [place], [place] | | | | | | [address] | | | | + + + + + + + + | Specimen | + + | Blood - Peripheral | | blood specimen | | (specimen) | + + + + + + + | Performing | Address | City/State/Zipcode | Phone Number | | Organization | | | | + + + + + | [facility] | [address] | [place] [address] | [phone] | + + + + + Culture, [...] LABORATORY | | | | Blvd;[place] [address] | | | | + + + + + + | RESULT | NO GROWTH 6 DAYS | | [facility] | | | | | | LABORATORY | | + + + + + + | RESULT | Testing performed at | | [facility] | | | | [facility], [address] | | LABORATORY | | | | [place], [place] | | | | | | [id number]: Testing | | | | | | performed at [facility], [address] | | | | | | [address], [place], [place] | | | | | | [address] | | | | + + + + + + + + | Specimen | + + | Blood - Peripheral | | blood specimen | | (specimen) | + + + + + + + | Performing | Address | City/State/Zipcode | Phone Number | | Organization | | | | + + + + + | [facility] | [address] | [place] [address] | [phone] | + + + + + B [...] [facility];[address] [facility] | | | | | | Blvd;[place] [address] | | | | + + + + + + + + | Specimen | + + | | + + + + + + + | Performing | Address | City/State/Zipcode | Phone Number | | Organization | | | | + + + + + | [facility] | [address] | [place] [address] | [phone] | + + + + + Lipid [...] | | | Calculated | performed at [facility], [address] | | LABORATORY | | | | [address], | | | | | | [place] [address] | | | | + + + + + + + + | Specimen | + + | Blood | + + + + + + + | Performing | Address | City/State/Zipcode | Phone Number | | Organization | | | | + + + + + | [facility] | [address] | [place] [address] | [phone] | + + + + + Hemoglobin A1C (04/06/2019 2:48 AM PST) + + + + + + | Component | Value | Ref Range | Performed | Pathologist | | | | | At | Signature | + + + + + + | Hemoglobin | 7.8 (H)Comment: HbA1c | 4.0 - 6.0 % | [facility] | | | A1c | method [...] | 177 (H)Comment: | <154 mg/dL | [facility] | | | Average | Estimated Average | | LABORATORY | | | Glucose | Glucose calculated from | | | | | | hemoglobin A1c by use of | | | | | | the ADArecommended | | | | | | formula.Testing | | | | | | performed at [facility], [address] | | | | | | [facility], | | | | | | [place] [address] | | | | + + + + + + + + | Specimen | + + | Blood | + + + + + + + | Performing | Address | City/State/Zipcode | Phone Number | | Organization | | | | + + + + + | [facility] | [address] | [place] [address] | [phone] | + + + + + Magnesium (04/06/2019 2:48 AM PST) + + + + + + | Component | Value | Ref Range | Performed | Pathologist | | | | | At | Signature | + + + + + + | Magnesium | 1.4 (L)Comment: Testing | 1.7 - 2.4 mg/dL | [facility] | | | | performed at [facility], [address] | | LABORATORY | | | | [address], | | | | | | [place] [address] | | | | + + + + + + + + | Specimen | + + | Blood | + + + + + + + | Performing | Address | City/State/Zipcode | Phone Number | | Organization | | | | + + + + + | [facility] | [address] | [place] [address] | [phone] | + + + + + Comprehensive [...] | | | | | performed at [facility], [address] | | | | | | [facility], | | | | | | [place] [address] | | | | + + + + + + + + | Specimen | + + | Blood | + + + + + + + | Performing | Address | City/State/Zipcode | Phone Number | | Organization | | | | + + + + + | [facility] | [address] | [place] [address] | [phone] | + + + + + CBC [...] [address] | | | | | | [address];[place] [address] | | | | | |NORMAL PLT MORPH | | | | | |Testing performed at [facility];[address];[place] [address] | | | | | | | | | | + + + + + + + + | Specimen | + + | Blood | + + + + + + + | Performing | Address | City/State/Zipcode | Phone Number | | Organization | | | | + + + + + | [facility] | [address] | [place] [address] | [phone] | + + + + + Protime INR (04/06/2019 2:48 AM PST) + + + + + + | Component | Value | Ref Range | Performed | Pathologist | | | | | At | Signature | + + + + + + | INR | 1.2Comment: REFERENCE | | [facility] | | | | RANGE:0.9 - [...] | | | | | | [address];[place] | | | | | | [address] | | | | + + + + + + + + | Specimen | + + | Blood | + + + + + + + | Performing | Address | City/State/Zipcode | Phone Number | | Organization | | | | + + + + + | [facility] | [address] | [place] [address] | [phone] | + + + + + PTT [...] | LABORATORY | | | | [address];[place] | | | | | | [address] | | | | + + + + + + + + | Specimen | + + | Blood | + + + + + + + | Performing | Address | City/State/Zipcode | Phone Number | | Organization | | | | + + + + + | [facility] | [address] | [place] [address] | [phone] | + + + + + Troponin I (04/06/2019 2:48 AM PST) + + + + + + | Component | Value | Ref Range | Performed | Pathologist | | | | | At | Signature | + + + + + + | Troponin I | 0.198 (H)Comment: 0.04 | 0.00 - 0.04 | [facility] | | | | ng/mL or [...] [address] | | | | | | [place] [address] | | | | + + + + + + + + | Specimen | + + | Blood | + + + + + + + | Performing | Address | City/State/Zipcode | Phone Number | | Organization | | | | + + + + + | [facility] | [address] | [place] [address] | [phone] | + + + + + documented [...] | | | | | dose on [facility] 04/12/19 at 0900 | | AM PST [...] | | | | | | longer, [id number]-gbm-[id number] use of | | | | | [...] | | | | | | | 8526-4472 Use NIGHT DOSE for | | | | | | | doses scheduled: HS, 3AM, | | | | | | | Nighttime 9696-8643 If the BG is | | | [...] PRN, Sore Throat, | | | Starting [facility] 04/12/19 at 2120 | | + +---+ [...] | | | | | discussed with [facility]. Thank you. | | | | [...]
--- OUTSIDE RECORDS SUMMARY | ~2019-08-08 | XMS | Encounter Summary ---
Demographics + + + | Address | [address] | | | [place] [address] | + + + | Home Phone [...] + | Jessica Shepard | ECON | [address] | | | | | [place] | | | | | [phone] | | + + + + + | Bel Solis | ECON | Unknown | | + + + + + Care Team Providers + +------+ + | Care Water Pumper Name | Role | Phone | + +------+ + | Jamar Manuel MD | PCP | | + +------+ + Encounter Details +--------+---------+ + + + | Date | Type | Department | Care Team | Description | +--------+---------+ + + + | 04/18/ | Surgery | [facility] | Gianluca Robbins MD | [facility] | | 2019 | | [facility] | [address] | FEMORAL-TIBIAL | | | | OPERATING ROOM [address] | [address] [place], [place] | | | | | [address] | [address] | | | | | [place], [place] | | | | | | [address] | | | | | | [phone] | | | +--------+---------+ + + + [...] other chronic comorbidities who pre sents to [facility] ER on 04/06 for shortness of breath admitted with 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 The patient was admitted to regular medical floor and started on optimal medical management . On-call wastewater treatment supervisor (Dr. Ruelas) recommended continued medical management. Patient [...] inferior defect with partial improvement at rest precinct police lieutenant was i nformed by hospitalist colleague recommended [...] their primary care provider within 1 w [place] after discharge, follow-up with ID in 2 weeks after discharge, follow-up with vascular s urgery as per their recommendations or otherwise within 2 weeks after discharge. The patien t will need to follow-up with his outpatient wastewater treatment supervisor within 1 to 2 weeks after discharg [...] Results Results Reviewed. Discharge Information: [facility] [address] [facility] [id number] Bhanu Seaman PA-C [address] [place] [facility] [address] In 2 weeks Jamar Manuel MD [address] [place] [address] Schedule an appointment as soon as possible for a visit in 1 week Hero Gaston MD [address] [facility] [address] Schedule an appointment as soon as possible for a visit in 2 weeks Post hospital discharge follow-up Dr. New Ruelas [address] [facility] [address] [facility] [address] Schedule an appointment as soon [...] mg per tablet aka: NORCO . Disposition: penitentiary Condition: Stable Code Status: Full [...] numbness Complications from anesthesia Date Last Reviewed: 08/20/201519999307-15[address] [place] [address]. All righ ts reserved. This information is [...] Wakefield PA-C - 04/21/2019 8:[address] AM [address] [facility] Service: Vascular Surgery Progress Note SUBJECTIVE Patient Summary: 74 y.o. man with complex medical issues and LE ischemic ulcers, he wa s recently admitted to the [facility] from 03/28/19 to 04/04/19 where he was treated/ diagnosed with systolic heart failure, type 2 ID/NSTEMI, SHAE, ARF. O2 desaturation brought him from SNF to [facility] and current admission today with CHF and [...] calf wo und with dressing intact and WNEDY with serosanguinous drainage. WENDY drains removed today. [...] Anaya RN - 04/20/2019 4:[address] [facility] Service: Wound Care Follow Up Note Hospital [...] Primary Wound Type: Diabetic Ulcer Side: Left [place] ation: lateral Location: foot Wound Subtype: ulceration, [...] in the care of this patient. Hannah Anaay RN, CWFRED 16:41 Grover Shaver M D - 04/20/2019 2:[address] [facility] Service: Hospitalist Progress Note Pt: [...] hematuria. Recent history notable for admit to [facility] from 03/28/19 to 04/04/2019 for CHF exacerbation with eventual dischar ge to [facility]. He then re-presented to same hospital [...] encounter as of 04/20/19-14:16 IMAGING: Reviewed in [facility], no new results. PROBLEM LIST Principal Problem: [...] Received 8 days of IV antibiotics at [facility] discharged home on with augmentin, now readmitted on 04/06 at [facility] and started on rocephin after sending [...] as indicated. Thank You, Sunshine Love, PharmD, [facility] 04/20/19 1:52 PM Nandini Sánchez se, MD - 04/20/2019 8:56 AM PST [facility] Service: Infectious Diseases Progress Note Hospital [...] Component Value Units Date/Time Culture, Wound, Superficial [[id number]] (Abnormal) (Susceptibility) Collected: 04/06/191545 Order Status: Completed Lab Status: Final result Updated: 04/11/19 0728 Specimen: Body Fluid from Heel, Right Special Requests LT FOOT Special Requests Testing performed at [facility];[address] [place] [address] RESULT -- 1+ ENTEROCOCCUS FAECALIS Aminoglycosides (except [...] Sensitive SUSCEPTIBLE JESSICA Final Testing performed at [facility], [address] [place] [address] Culture, Wound, Superficial [[id number]] Collected: 04/06/191545 Order Status: Completed Lab Status: Final result Updated: 04/08/19 0937 Specimen: Body Fluid from Heel, Right Special Requests RIGHT FOOT Special Requests Testing performed at [facility];[address] [place] [address] RESULT -- 1+ NORMAL SKIN CELSA ISOLATED RESULT NO FURTHER WORKUP RESULT Testing performed at [facility], [address] [place] [address] Comment: Testing performed at [facility], [address] [place] [address] Microbiology Results (72 hrs) No results found [...] with dosing and monitorization. Discussed with case worker regarding OPAT. Discussed with case worker regarding discharge planning. Dr. Dolan will take over ID service tomorrow. Please call if questions. Hero Richardson MD, MPH Infectious Diseases 04/20/19 ubbard, Sheila Diallo RN - 04/19/2019 7:20 PM PSTEnd of shift chart check complete. Sheila Cabrera RN unshine Love, [facility] - 04/19/2019 3:23 PM PSTFormatting of this [...] Shaver MD - 04/19/2019 2:[address] [facility] Service: Hospitalist Progress Note Pt: Reagan Shepard AGE/SEX: 74 y.o. male ROOM: [facility]/9119- : 1945 PCP: Jamar Manuel MD ADMIT DATE: 04/06/2019 TODAY'S DATE: 04/19/2019 Hospital Day/Hospital Course: LOS: 13 days Mr. Shepard is a 74-year-old gentleman with a history of bilateral nonhealing diabetic trisha t ulcers, and history of TBI, stroke, insulin dependent DM, who presents with CHF exacerbati on with hospital course complicated by gross hematuria. Recent history notable for admit to [facility] from 03/28/19 to 04/04/2019 for CHF exacerbation with eventual dischar ge to [facility]. He then re-presented to same hospital [...] Received 8 days of IV antibiotics at [facility] discharged home on with augmentin, now readmitted on 04/06 at [facility] and started on rocephin after sending [...] this note might be different from the [facility] Service: Infectious Diseases Progress Note Hospital Day: [...] Component Value Units Date/Time Culture, Wound, Superficial [[id number]] (Abnormal) (Susceptibility) Collected: 04/06/19 1546 Order Status: Completed Lab Status: Final result Updated: 04/11/19 0728 Specimen: Body Fluid from Heel, Right Special Requests LT FOOT Special Requests Testing performed at [facility];[address] [place] [address];[place] [address] RESULT -- 1+ ENTEROCOCCUS FAECALIS Aminoglycosides (except [...] Sensitive SUSCEPTIBLE JESSICA Final Testing performed at [facility], [address] [place] [address] Culture, Wound, Superficial [[id number]] Collected: 04/06/19 1546 Order Status: Completed Lab Status: Final result Updated: 04/08/1937 Specimen: Body Fluid from Heel, Right Special Requests RIGHT FOOT Special Requests Testing performed at [facility];[address] [place] [address] RESULT -- 1+ NORMAL SKIN CELSA ISOLATED RESULT NO FURTHER WORKUP RESULT Testing performed at [facility], [address] [place] [address] Comment: Testing performed at [facility], [address] [place] [address] Culture, Blood [[id number]] Collected: 04/06/198 Order Status: Completed Lab Status: Final result Updated: 04/12/19 0652 Specimen: Peripheral Blood Special Requests R WRIST Special Requests Testing performed at [facility];[address] [place] [address] RESULT NO GROWTH 6 DAYS RESULT Testing performed at [facility], [address] [place] [address] Comment: Testing performed at [facility], [address] [place] [address] Culture, Blood [[id number]] Collected: 04/06/19330 Order Status: Completed Lab Status: Final result Updated: 04/12/1952 Specimen: Peripheral Blood Special Requests L WRIST Special Requests Testing performed at [facility];[address] [place] [address] RESULT NO GROWTH 6 DAYS RESULT Testing performed at [facility], [address] [place] [address] Comment: Testing performed at [facility], [address] [place] [address] Microbiology Results (72 hrs) No results found [...] might be different from the o riginal. [facility] Service: Vascular Surgery Progress Note SUBJECTIVE Patient Summary: 74 y.o. man with complex medical issues and LE ischemic ulcers, he wa s recently admitted to the [facility] from 03/28/19 to 04/04/19 where he was treated/ diagnosed with systolic heart failure, type 2 ID/NSTEMI, SHAE, ARF. O2 desaturation brought him from SNF to [facility] and current admission today with CHF and [...] Rachel Altamirano RN - 04/19/2019 5:46 AM [id number] left foot dressing change complete per order. [...] Grover Shaver MD - 4:[address] PM [address] [facility] Service: Hospitalist Progress Note Pt: Reagan Shepard AGE/SEX: 74 y.o. male ROOM: [facility] OR INTRA OP POOL/[facility]* : 1945 PCP: Jamar Manuel MD ADMIT DATE: 04/06/2019 TODAY'S DATE: 04/18/2019 Hospital Day/Hospital Course: LOS: 12 days Mr. Shepard is a 74-year-old gentleman with a history of bilateral nonhealing diabetic trisha t ulcers, and history of TBI, stroke, insulin dependent DM, who presents with CHF exacerbati on with hospital course complicated by gross hematuria. Recent history notable for admit to [facility] from 03/28/19 to 04/04/2019 for CHF exacerbation with eventual dischar ge to [facility]. He then re-presented to same hospital [...] the last 72 hours. IMAGING: Reviewed in [facility], no new results. PROBLEM LIST Principal Problem: [...] Received 8 days of IV antibiotics at [facility] discharged home on with augmentin, now readmitted on 04/06 at [facility] and started on rocephin after sending [...] as indicated. Thank You, Sunshine Love, PharmD, [facility] 04/18/19 2:45 PM Syed López [...] might be different from t kevin original. [facility] Service: Infectious Diseases Progress Note Hospital [...] Component Value Units Date/Time Culture, Wound, Superficial [[id number]] (Abnormal) (Susceptibility) Collected: 04/06/19 1546 Order Status: Completed Lab Status: Final result Updated: 04/11/19 0728 Specimen: Body Fluid from Heel, Right Special Requests LT FOOT Special Requests Testing performed at [facility];[address] [place] [address];[place] [address] RESULT -- 1+ ENTEROCOCCUS FAECALIS Aminoglycosides (except [...] Sensitive SUSCEPTIBLE JESSICA Final Testing performed at [facility], [address] [place] [address] Culture, Wound, Superficial [[id number]] Collected: 04/06/19 1546 Order Status: Completed Lab Status: Final result Updated: 04/08/19 0937 Specimen: Body Fluid from Heel, Right Special Requests RIGHT FOOT Special Requests Testing performed at [facility];[address] [place] [address] RESULT -- 1+ NORMAL SKIN CELSA ISOLATED RESULT NO FURTHER WORKUP RESULT Testing performed at [facility], [address] [place] [address] Comment: Testing performed at [facility], [address] [place] [address] Culture, Blood [[id number]] Collected: 04/06/19 0338 Order Status: Completed Lab Status: Final result Updated: 04/12/19 0652 Specimen: Peripheral Blood Special Requests R WRIST Special Requests Testing performed at [facility];[address] [place] [address] RESULT NO GROWTH 6 DAYS RESULT Testing performed at [facility], [address] [place] [address] Comment: Testing performed at [facility], [address] [place] [address] Culture, Blood [[id number]] Collected: 04/06/19 0331 Order Status: Completed Lab Status: Final result Updated: 04/12/19 0652 Specimen: Peripheral Blood Special Requests L WRIST Special Requests Testing performed at [facility];[address] [place] [address]602 RESULT NO GROWTH 6 DAYS RESULT Testing performed at [facility], [address] [place] [address] Comment: Testing performed at [facility], [address] [place] [address] Microbiology Results (72 hrs) No results found [...] might be different from the o riginal. [facility] Service: Vascular Surgery Progress Note SUBJECTIVE Patient Summary: 74 y.o. man with complex medical issues and LE ischemic ulcers, he wa s recently admitted to the [facility] from 03/28/19 to 04/04/19 where he was treated/ diagnosed with systolic heart failure, type 2 ID/NSTEMI, SHAE, ARF. O2 desaturation brought him from SNF to [facility] and current admission today with CHF and [...] of feet - [facility]. Cryovein is in house [...] of shift chart check review Sunshine Chen [facility] - 04/17/2019 1:38 PM PST Vancomycin Dosing [...] as indicated. Thank You, Sunshine Love, PharmD, [facility] 04/17/19 1:38 PM Grover Shaver MD - 04/17/2019 12:[address] [facility] Service: Hospitalist Progress Note Pt: Reagan Shepard AGE/SEX: 74 y.o. male ROOM: [facility]4452-01 : 1945 PCP: Jamar Manuel MD ADMIT DATE: 04/06/2019 TODAY'S DATE: 04/17/2019 Hospital Day/Hospital Course: LOS: 11 days Mr. Shepard is a 74-year-old gentleman with a history of bilateral nonhealing diabetic trisha t ulcers, and history of TBI, stroke, insulin dependent DM, who presents with CHF exacerbati on with hospital course complicated by gross hematuria. Recent history notable for admit to [facility] from 03/28/19 to 04/04/2019 for CHF exacerbation with eventual dischar ge to [facility]. He then re-presented to same hospital [...] Received 8 days of IV antibiotics at [facility] discharged home on with augmentin, now readmitted on 04/06 at [facility] and started on rocephin after sending [...] Rico Modi MD - 11:[address] [facility] Service: Cardiology/[facility] Interventional cardiology note RE: Reagan [...] minimal reversib ility 2. Recent non-Q wave ID 3. Severe peripheral vascular disease 4. Diabetes [...] this note might be different from the [facility] Service: Infectious Diseases Progress Note Hospital Day: [...] Component Value Units Date/Time Culture, Wound, Superficial [[id number]] (Abnormal) (Susceptibility) Collected: 04/06/19 1546 Order Status: Completed Lab Status: Final result Updated: 04/11/19 0728 Specimen: Body Fluid from Heel, Right Special Requests LT FOOT Special Requests Testing performed at [facility];[address] [place] [address];[place] [address] RESULT -- 1+ ENTEROCOCCUS FAECALIS Aminoglycosides (except [...] Sensitive SUSCEPTIBLE JESSICA Final Levofloxacin Resistant RESISTANT EJSSICA Final Moxifloxacin Resistant RESISTANT JESSICA Final Oxacillin Resistant RESISTANT JESSICA Final Tetracycline Resistant RESISTANT JESSICA Final Trimethoprim + Sulfamethoxazole Resistant RESISTANT JESSICA Final Vancomycin Sensitive SUSCEPTIBLE JESSICA Final Testing performed at [facility], [address] [place] [address] Culture, Wound, Superficial [[id number]] Collected: 04/06/19 1546 Order Status: Completed Lab Status: Final result Updated: 04/08/19936 Specimen: Body Fluid from Heel, Right Special Requests RIGHT FOOT Special Requests Testing performed at [facility];[address] [place] [address]692 RESULT -- 1+ NORMAL SKIN CELSA ISOLATED RESULT NO FURTHER WORKUP RESULT Testing performed at [facility], [address] [place] [address] Comment: Testing performed at [facility], [address] [place] [address] Culture, Blood [[id number]] Collected: 04/06/198 Order Status: Completed Lab Status: Final result Updated: 04/12/1952 Specimen: Peripheral Blood Special Requests R WRIST Special Requests Testing performed at [facility];[address] [place] [address] RESULT NO GROWTH 6 DAYS RESULT Testing performed at [facility], [address] [place] [address] Comment: Testing performed at [facility], [address] [place] [address] 11453 Culture, Blood [[id number]] Collected: 04/06/191 Order Status: Completed Lab Status: Final result Updated: 04/12/1952 Specimen: Peripheral Blood Special Requests L WRIST Special Requests Testing performed at [facility];[address] [place] [address] RESULT NO GROWTH 6 DAYS RESULT Testing performed at [facility], [address] [place] [address] Comment: Testing performed at [facility], [address] [place] [address] 10020 Microbiology Results (72 hrs) No results found [...] might be different from the o riginal. [facility] Service: Vascular Surgery Progress Note SUBJECTIVE Patient Summary: 74 y.o. man with complex medical issues and LE ischemic ulcers, he wa s recently admitted to the [facility] from 03/28/19 to 04/04/19 where he was treated/ diagnosed with systolic heart failure, type 2 ID/NSTEMI, SHAE, ARF. O2 desaturation brought him from SNF to [facility] and current admission today with CHF and [...] Sánchez MD - 04/16/2019 6:[address] [facility] Service: Infectious Diseases Progress Note Hospital [...] Component Value Units Date/Time Culture, Wound, Superficial [[id number]] (Abnormal) (Susceptibility) Collected: 04/06/19 1546 Order Status: Completed Lab Status: Final result Updated: 04/11/19 7828 Specimen: Body Fluid from Heel, Right Special Requests LT FOOT Special Requests Testing performed at [facility];[address] [place] [address] RESULT -- 1+ ENTEROCOCCUS FAECALIS Aminoglycosides (except [...] Sensitive SUSCEPTIBLE JESSICA Final Testing performed at [facility], [address] [place] [address]08 Culture, Wound, Superficial [[id number]] Collected: 04/06/19 1546 Order Status: Completed Lab Status: Final result Updated: 04/08/19 0937 Specimen: Body Fluid from Heel, Right Special Requests RIGHT FOOT Special Requests Testing performed at [facility];[address] [place] [address] RESULT -- 1+ NORMAL SKIN CELSA ISOLATED RESULT NO FURTHER WORKUP RESULT Testing performed at [facility], [address] [place] [address] Comment: Testing performed at [facility], [address] [place] [address] 02046 Culture, Blood [[id number]] Collected: 04/06/19 0338 Order Status: Completed Lab Status: Final result Updated: 04/12/19 0652 Specimen: Peripheral Blood Special Requests R WRIST Special Requests Testing performed at [facility];[address] [place] [address] RESULT NO GROWTH 6 DAYS RESULT Testing performed at [facility], [address] [place] [address] Comment: Testing performed at [facility], [address] [place] [address]2393 Culture, Blood [[id number]] Collected: 04/06/19 0331 Order Status: Completed Lab Status: Final result Updated: 04/12/19 0652 Specimen: Peripheral Blood Special Requests L WRIST Special Requests Testing performed at [facility];[address] [place] [address]22 RESULT NO GROWTH 6 DAYS RESULT Testing performed at [facility], [address] [place] [address] Comment: Testing performed at [facility], [address] [place] [address]13 Microbiology Results (72 hrs) No results found [...] note might be different from the original. [facility] Service: Hospitalist Progress Note Pt: [...] hematuria. Recent history notable for admit to [facility] from 03/28/19 to 04/04/2019 for CHF exacerbation with eventual dischar ge to [facility]. He then re-presented to same hospital [...] BNP 587.58* IMAGING: Reviewed in [facility], no new results. PROBLEM LIST Principal Problem: [...] Received 8 days of IV antibiotics at [facility] discharged home on with augmentin, now readmitted on 04/06 at [facility] and started on rocephin after sending [...] Rodrigez RD 04/16/2019 3:21 PM Sunshine Chen, [facility] - 04/16/2019 12:18 PM PST Vancomycin Dosing [...] Patient encouraged to discuss medication changes with wastewater treatment supervisor ragini stanley to stopping medications or making any changes. Patient's questions answered. Heart Fail ure Hot Line number provided to patient. Face to face time was spent with patient providing counseling and education for congestive heart failure. Bhanu Wakefield P A-C - 04/16/2019 8:[address] AM PST [facility] Service: Vascular Surgery Progress Note SUBJECTIVE Patient Summary: 74 y.o. man with complex medical issues and LE ischemic ulcers, he wa s recently admitted to the [facility] from 03/28/19 to 04/04/19 where he was treated/ diagnosed with systolic heart failure, type 2 ID/NSTEMI, SHAE, ARF. O2 desaturation brought him from SNF to [facility] and current admission today with CHF and [...] MD - 04/15/2019 1 2:[address] [facility] Service: Hospitalist Progress Note Pt: Reagan Shepard AGE/SEX: 74 y.o. male ROOM: [address] [place], [place] [address]- : 1945 PCP: Jamar Manuel MD ADMIT DATE: 04/06/2019 TODAY'S DATE: 04/15/2019 Hospital Day/Hospital Course: LOS: 9 days Mr. Shepard is a 74-year-old gentleman with a history of bilateral nonhealing diabetic trisha t ulcers, and history of TBI, stroke, insulin dependent DM, who presents with CHF exacerbati on with hospital course complicated by gross hematuria. Recent history notable for admit to [facility] from 03/28/19 to 04/04/2019 for CHF exacerbation with eventual dischar ge to [facility]. He then re-presented to same hospital [...] BNP 587.58* IMAGING: Reviewed in [facility], no new results. PROBLEM LIST Principal Problem: [...] risk stratification . -cardiology consulted -NPO at DC for nuc med stress test in morning [...] Received 8 days of IV antibiotics at [facility] discharged home on with augmentin, now readmitted on 04/06 at [facility] and started on rocephin after sending [...] of care purp ose roctor, Sheila Brown [facility] - 04/15/2019 10:55 AM PST Vancomycin Dosing [...] might be differ ent from the original. [facility] Service: Infectious Diseases Progress Note Hospital [...] Component Value Units Date/Time Culture, Wound, Superficial [[id number]] (Abnormal) (Susceptibility) Collected: 04/06/191545 Order Status: Completed Lab Status: Final result Updated: 04/11/19 0728 Specimen: Body Fluid from Heel, Right Special Requests LT FOOT Special Requests Testing performed at [facility];[address] [place] [address] 15297 RESULT -- 1+ ENTEROCOCCUS FAECALIS Aminoglycosides (except [...] Sensitive SUSCEPTIBLE JESSICA Final Testing performed at [facility], [address] [place] [address] 92244 Culture, Wound, Superficial [[id number]] Collected: 04/06/191545 Order Status: Completed Lab Status: Final result Updated: 04/08/19 0937 Specimen: Body Fluid from Heel, Right Special Requests RIGHT FOOT Special Requests Testing performed at [facility] [place] [facility];[address] [place] [address] 82339 RESULT -- 1+ NORMAL SKIN CELSA ISOLATED RESULT NO FURTHER WORKUP RESULT Testing performed at [facility], [address] [place] [address] Comment: Testing performed at [facility], [address] [place] [address] 12447 Culture, Blood [[id number]] Collected: 04/06/19 0338 Order Status: Completed Lab Status: Final result Updated: 04/12/1952 Specimen: Peripheral Blood Special Requests R WRIST Special Requests Testing performed at [facility] [place];[address] [place] [address] 54116 RESULT NO GROWTH 6 DAYS RESULT Testing performed at [facility], [address] [place] [address] 46026 Comment: Testing performed at [facility], [address] [place] [address] 65259 Culture, Blood [[id number]] Collected: 04/06/19330 Order Status: Completed Lab Status: Final result Updated: 04/12/1952 Specimen: Peripheral Blood Special Requests L WRIST Special Requests Testing performed at [facility] [place];[address] [place] [address] 97859 RESULT NO GROWTH 6 DAYS RESULT Testing performed at [facility], [place] [address] Comment: Testing performed at [facility], [address] [place] [address] 07121 Microbiology Results (72 hrs) No results found [...] previous [facility]. Discussed this with Dr Cahrles and he is in agreement with double lumen PICC insertion in Rt arm. ady Houser RN - 04/14/2019 1:[address] Richardson who is in agreement with double lumen PI CC insertion. achary Charles MD - 04/14/2019 1:29 PM PSTFormatting of this note might be different from the origin [facility] Service: Hospitalist Progress Note Pt: [...] hematuria. Recent history notable for admit to [facility] from 03/28/19 to 04/04/2019 for CHF exacerbation with eventual dischar ge to [facility]. He then re-presented to same hospital [...] BNP 587.58* IMAGING: Reviewed in [facility], no new results. PROBLEM LIST Principal Problem: [...] Received 8 days of IV antibiotics at [facility] discharged home on with augmentin, now readmitted on 04/06 at [facility] and started on rocephin after sending [...] H Code status: Full Dispo: back to [facility] pending improvement in gross hematuria, CHF exacerbation, re peat angiogram, final ID recs, likely 4-5 more days in hospital Grover Charles MD 1:29 PM 04/14/2019 Portions of this chart may have been copied from previous notes for continuity of care purp ose Lyric Molina RN - 04/14/2019 1:[address] [facility] Service: Wound Care Follow Up Note Hospital [...] any additional questions. Lyric Mclain RN, CMSRN, [facility] Inpatient Wound Ostomy Care [phone] 04/14/2019 1:29 PM Dheeraj Barraza, PT - [...] vs stable.Vandana Luciano RN obrandi, Meghan Wolff, [facility] - 04/14/2019 6:31 AM PST Vancomycin Dosing [...] patient. End of shift chart check complete. Groevr Shaver MD - 04/13/2019 4:[address] [facility] Service: Hospitalist Progress Note Pt: Reagan Shepard AGE/SEX: 74 y.o. male ROOM: [facility]2/4452-01 : 1945 PCP: Jamar Manuel MD ADMIT DATE: 04/06/2019 TODAY'S DATE: 04/13/2019 Hospital Day/Hospital Course: LOS: 7 days Mr. Shepard is a 74-year-old gentleman with a history of bilateral nonhealing diabetic trisha t ulcers, and history of TBI, stroke, insulin dependent DM, who presents with CHF exacerbati on with hospital course complicated by gross hematuria. Recent history notable for admit to [facility] from 03/28/19 to 04/04/2019 for CHF exacerbation with eventual dischar ge to [facility]. He then re-presented to same hospital [...] the last 168 hours. IMAGING: Reviewed in [facility], no new results. PROBLEM LIST Principal Problem: [...] Received 8 days of IV antibiotics at [facility] discharged home on with augmentin, now readmitted on 04/06 at [facility] and started on rocephin after sending [...] date with age appropriate cancer screening PPx: [facility] Code status: Full Dispo: back to [facility] [...] 113.3 kg Adjusted body weight: 89.1 kg Sargents body weight: 73 kg Current Vital Signs: [...] [facility] Drawing a level once the patient [...] indicated. Thank You, Sunshine Love, PharmD, [facility] 04/13/19 3:20 PM Nandini Sánchez se, MD - 04/13/2019 10:[address] [facility] Service: Infectious Diseases Progress Note Hospital [...] Component Value Units Date/Time Culture, Wound, Superficial [[id number]] (Abnormal) (Susceptibility) Collected: 04/06/19 1546 Order Status: Completed Lab Status: Final result Updated: 04/11/19 0728 Specimen: Body Fluid from Heel, Right Special Requests LT FOOT Special Requests Testing performed at [facility] [place];[address] [place] [address];[place] [address] RESULT -- 1+ ENTEROCOCCUS FAECALIS Aminoglycosides (except [...] Sensitive SUSCEPTIBLE JESSICA Final Levofloxacin Resistant RESISTANT JESSCIA Final Moxifloxacin Resistant RESISTANT JESSICA Final Oxacillin Resistant RESISTANT JESSICA Final Tetracycline Resistant RESISTANT JESSICA Final Trimethoprim + Sulfamethoxazole Resistant RESISTANT JESSICA Final Vancomycin Sensitive SUSCEPTIBLE JESSICA Final Testing performed at [facility], [address] [place] [address] 96618 Culture, Wound, Superficial [[id number]] Collected: 04/06/19 1546 Order Status: Completed Lab Status: Final result Updated: 04/08/19936 Specimen: Body Fluid from Heel, Right Special Requests RIGHT FOOT Special Requests Testing performed at [facility] [place];[address] [place] [address] 43520 RESULT -- 1+ NORMAL SKIN CELSA ISOLATED RESULT NO FURTHER WORKUP RESULT Testing performed at [facility], [address] [place] [address] 6[address] Comment: Testing performed at [facility], [address] [place] [address] 98245 Culture, Blood [[id number]] Collected: 04/06/198 Order Status: Completed Lab Status: Final result Updated: 04/12/19651 Specimen: Peripheral Blood Special Requests R WRIST Special Requests Testing performed at [facility] [place];[address] [place] [address] 73119 RESULT NO GROWTH 6 DAYS RESULT Testing performed at [facility], [address] [place] [address] Comment: Testing performed at [facility], [address] [place] [address] 23281 Culture, Blood [[id number]] Collected: 04/06/19 033 Order Status: Completed Lab Status: Final result Updated: 04/12/19651 Specimen: Peripheral Blood Special Requests L WRIST Special Requests Testing performed at [facility] [place];[address] [place] [address] 61071 RESULT NO GROWTH 6 DAYS RESULT Testing performed at [facility], [address] [place] [address] 78974 Comment: Testing performed at [facility], [address] [place] [address] 84353 Microbiology Results (72 hrs) No results found [...] might be different from the o riginal. [facility] Service: Vascular Surgery Progress Note SUBJECTIVE Patient Summary: 74 y.o. man with complex medical issues and LE ischemic ulcers, he wa s recently admitted to the [facility] from 03/28/19 to 04/04/19 where he was treated/ diagnosed with systolic heart failure, type 2 ID/NSTEMI, SHAE, ARF. O2 desaturation brought him from SNF to [facility] and current admission today with CHF and [...] risks. Signed consent obtained. Will proceed to [facility] [employer] today for right leg angiogram. Moderate Sedation [...] might be different from the o riginal. [facility] Service: Infectious Diseases Progress Note Hospital [...] Component Value Units Date/Time Culture, Wound, Superficial [[id number]] (Abnormal) (Susceptibility) Collected: 04/06/19 1546 Order Status: Completed Lab Status: Final result Updated: 04/11/19 0728 Specimen: Body Fluid from Heel, Right Special Requests LT FOOT Special Requests Testing performed at [facility] [place] [facility];[address] [place] [address] 80277 RESULT -- 1+ ENTEROCOCCUS FAECALIS Aminoglycosides (except [...] Sensitive SUSCEPTIBLE JESSICA Final Testing performed at [facility], [address] [place] [address] 64134 Culture, Wound, Superficial [[id number]] Collected: 04/06/19 1546 Order Status: Completed Lab Status: Final result Updated: 04/08/19 0937 Specimen: Body Fluid from Heel, Right Special Requests RIGHT FOOT Special Requests Testing performed at [facility] [place];[address] [place] [address] 68344 RESULT -- 1+ NORMAL SKIN CELSA ISOLATED RESULT NO FURTHER WORKUP RESULT Testing performed at [facility], [address] [place] [address] Comment: Testing performed at [facility], [address] [place] [address] 70000 Culture, Blood [[id number]] Collected: 04/06/19 0338 Order Status: Completed Lab Status: Final result Updated: 04/12/19 0652 Specimen: Peripheral Blood Special Requests R WRIST Special Requests Testing performed at [facility] [place];[address] [place] [address] 98546 RESULT NO GROWTH 6 DAYS RESULT Testing performed at [facility], [address] [place] [address] Comment: Testing performed at [facility], [address] [place] [address] 05958 Culture, Blood [[id number]] Collected: 04/06/19 0331 Order Status: Completed Lab Status: Final result Updated: 04/12/1952 Specimen: Peripheral Blood Special Requests L WRIST Special Requests Testing performed at [facility] [place];[address] [place] [address] 43546 RESULT NO GROWTH 6 DAYS RESULT Testing performed at [facility], [address] [place] [address] Comment: Testing performed at [facility], [address] [place] [address] 27331 Microbiology Results (72 hrs) No results found [...] this note might be different from the [facility] Service: Hospitalist [...] hematuria. Recent history notable for admit to [facility] from 03/28/19 to 04/04/2019 for CHF exacerbation with eventual dischar ge to [facility]. He then re-presented to same hospital [...] Received 8 days of IV antibiotics at [facility] discharged home on with augmentin, now readmitted on 04/06 at [facility] and started on rocephin after sending [...] H Code status: Full Dispo: back to [facility] pending improvement in gross hematuria, CHF exacerbation, re peat angiogram, final ID recs, likely 4-5 more days in hospital Grover Charles MD 4:43 PM 04/12/2019 Portions of this chart may have been copied from previous notes for continuity of care purp ose Bhanu Wakefield PA-C - 04/12/2019 4:[address] [facility] Service: Vascular Surgery Progress Note SUBJECTIVE Patient Summary: 74 y.o. man with complex medical issues and LE ischemic ulcers, he wa s recently admitted to the [facility] from 03/28/19 to 04/04/19 where he was treated/ diagnosed with systolic heart failure, type 2 ID/NSTEMI, SHAE, ARF. O2 desaturation brought him from SNF to [facility] and current admission today with CHF and [...] Bhanu Seaman PA-C Vascular Surgery Sunshine Chen, [facility] - 04/12/2019 12:27 PM PST Vancomycin Dosing Per Pharmacy Subjective/Objective Reagan Shepard is a 74 y.o. 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 Additional antimicrobials: zosyn Quadriplegic/Paraplegic: no Diabetes: yes Baseline Serum Creatinine: 0.6 mg/dL Actual weight: 113.3 kg Adjusted body weight: 89.1 kg Sargents body weight: 73 kg Current Vital Signs: [...] as indicated. Thank You, Sunshine Love, PharmD, [facility] 04/12/19 3:27 PM Grover Shaver MD - 04/11/2019 5:[address] [facility] Service: Hospitalist Progress Note Pt: [...] hematuria. Recent history notable for admit to [facility] from 03/28/19 to 04/04/2019 for CHF exacerbation with eventual dischar ge to [facility]. He then re-presented to same hospital [...] INR 1.2 PTT 34* IMAGING: Reviewed in [facility], no new results. PROBLEM LIST Principal Problem: [...] Received 8 days of IV antibiotics at [facility] discharged home on with augmentin, now readmitted on 04/06 at [facility] and started on rocephin after sending [...] of care purp ose roctor, Sheila Brown [facility] - 04/11/2019 2:03 PM PST Vancomycin Dosing Per Pharmacy Subjective/Objective Reagan Shepard is a 74 y.o. 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 Additional antimicrobials: zosyn Quadriplegic/Paraplegic: no Diabetes: yes Baseline Serum Creatinine: 0.6 mg/dL Actual weight: 113.3 kg Adjusted body weight: 89.1 kg Sargents body weight: 73 kg Current Vital Signs: [...] nomogram, current renal function, and desired trough. [employer] [facility] ed on patient history, vancomycin 1250 mg [...] therapy as indicated. Thank You, Sheila Ahuja, [facility], 04/11/2019, 1:51 PM Hero Sánchez MD - 04/11/2019 10:09 AM PSTFormatting of this note might be different from stephanie brown original. [facility] Service: Infectious Diseases Progress Note Hospital [...] Component Value Units Date/Time Culture, Wound, Superficial [[id number]] (Abnormal) (Susceptibility) Collected: 04/06/19 1546 Order Status: Completed Lab Status: Final result Updated: 04/11/1928 Specimen: Body Fluid from Heel, Right Special Requests LT FOOT Special Requests Testing performed at [facility] [place];[address] [place] [address];[place] [address] RESULT -- 1+ ENTEROCOCCUS FAECALIS Aminoglycosides (except [...] Sensitive SUSCEPTIBLE JESSICA Final Testing performed at [facility], [address] [place] [address], [place] [address] Culture, Wound, Superficial [[id number]] Collected: 04/06/19 1546 Order Status: Completed Lab Status: Final result Updated: 04/08/19 0937 Specimen: Body Fluid from Heel, Right Special Requests RIGHT FOOT Special Requests Testing performed at [facility] [place] [facility];[address] [place] [address] 30736 RESULT -- 1+ NORMAL SKIN CELSA ISOLATED RESULT NO FURTHER WORKUP RESULT Testing performed at [facility], [address] [place] [address] 58803 Comment: Testing performed at [facility], [address] [place] [address] 13957 Culture, Blood [[id number]] Collected: 04/06/19 0338 Order Status: Completed Lab Status: Preliminary result Updated: 04/07/19 0813 Specimen: Peripheral Blood Special Requests R WRIST Special Requests Testing performed at [facility] [place];[address] [place] [address] 53440 RESULT NO GROWTH AT THIS TIME RESULT Testing performed at [facility], [address] [place] [address] 75950 Comment: Testing performed at [facility], [address] [place] [address] 28461 Culture, Blood [[id number]] Collected: 04/06/19 0331 Order Status: Completed Lab Status: Preliminary result Updated: 04/07/19 0813 Specimen: Peripheral Blood Special Requests L WRIST Special Requests Testing performed at [facility] [place];[address] [place] [address] 72984 RESULT NO GROWTH AT THIS TIME RESULT Testing performed at [facility], [address] [place] [address] 11880 Comment: Testing performed at [facility], [address] [place] [address] 11166 Microbiology Results (72 hrs) No results found [...] Shaver MD - 04/10/2019 4:[address] [facility] Service: Hospitalist Progress Note Pt: Reagan Shepard AGE/SEX: 74 y.o. male ROOM: [facility]2/4452-01 : 1945 PCP: Jamar Manuel MD ADMIT DATE: 04/06/2019 TODAY'S DATE: 04/10/2019 Hospital Day/Hospital Course: LOS: 4 days Mr. Shepard is a 74-year-old gentleman with a history of bilateral nonhealing diabetic trisha t ulcers, and history of TBI, stroke, insulin dependent DM, who presents with CHF exacerbati on with hospital course complicated by gross hematuria. Recent history notable for admit to [facility] from 03/28/19 to 04/04/2019 for CHF exacerbation with eventual dischar ge to [facility]. He then re-presented to same hospital [...] INR 1.2 PTT 34* IMAGING: Reviewed in [facility], no new results. PROBLEM LIST Principal Problem: [...] Received 8 days of IV antibiotics at [facility] discharged home on with augmentin, now readmitted on 04/06 at [facility] and started on rocephin after sending [...] note might be different [facility]: Infectious Diseases Progress Note Hospital Day: [...] Component Value Units Date/Time Culture, Wound, Superficial [[id number]] (Abnormal) (Susceptibility) Collected: 04/06/191545 Order Status: Completed Lab Status: Preliminary result Updated: 04/10/19 0954 Specimen: Body Fluid from Heel, Right Special Requests LT FOOT Special Requests Testing performed at [facility] [place];[address] [place] [address];[place] [address] RESULT -- 1+ ENTEROCOCCUS FAECALIS Aminoglycosides (except for high-level resistance testing), cephalosporins, clindamycin, an d trimethoprim-sulfamethoxazole may appear active in vitro but they are not effective clinic ally. RESULT -- 1+ ENTEROBACTER CLOACAE COMPLEX RESULT -- 1+ STAPHYLOCOCCUS AUREUS RESULT SUSCEPTIBILITY TO FOLLOW RESULT Testing performed at [facility], [address] [place] [address] Susceptibility Enterococcus faecalis (1) Antibiotic Interpretation Microscan [...] Sensitive SUSCEPTIBLE JESSICA Preliminary Testing performed at [facility], [address] [place] [address] 12462 Culture, Wound, Superficial [[id number]] Collected: 04/06/191545 Order Status: Completed Lab Status: Final result Updated: 04/08/19936 Specimen: Body Fluid from Heel, Right Special Requests RIGHT FOOT Special Requests Testing performed at [facility] [place];[address] [place] [address] 92935 RESULT -- 1+ NORMAL SKIN CELSA ISOLATED RESULT NO FURTHER WORKUP RESULT Testing performed at [facility], [address] [place] [address] 96208 Comment: Testing performed at [facility], [address] [place] [address] 77941 Culture, Blood [[id number]] Collected: 04/06/19337 Order Status: Completed Lab Status: Preliminary result Updated: 04/07/19812 Specimen: Peripheral Blood Special Requests R WRIST Special Requests Testing performed at [facility] [place];[address] [place] [address] 89089 RESULT NO GROWTH AT THIS TIME RESULT Testing performed at [facility], [address] [place] [address] 87903 Comment: Testing performed at [facility], [address] [place] [address] 41320 Culture, Blood [[id number]] Collected: 04/06/19330 Order Status: Completed Lab Status: Preliminary result Updated: 04/07/19812 Specimen: Peripheral Blood Special Requests L WRIST Special Requests Testing performed at [facility] [place];[address] [place] [address] 92103 RESULT NO GROWTH AT THIS TIME RESULT Testing performed at [facility], [address] [place] [address] 55688 Comment: Testing performed at [facility], [address] [place] [address] 91062 Microbiology Results (72 hrs) No results found [...] might be different from the ramiro melyssa. [facility] Service: Urology Progress Note Hospital Day: LOS: [...] of congestive failure. Signed by: Madison [facility] Sign Date/Time: 04/09/2019 9:25 AM US Renal [...] essential h ypertension, insulin-dependent diabetes, history of ID, GERD, ischemic stroke, diffuse signi ficant peripheral [...] Lujan MD - 04/09/2019 6:[address] [facility] Service: Urology Progress Note Hospital Day: LOS: 3 days Post-Op Day: * No surgery found * SUBJECTIVE Events Overnight: This 74-year-old gentleman with a known history of insulin-dependen t diabetes mellitus, advanced peripheral vascular disease, osteomyelitis of right foot, diab etic foot ulcers which are significant and advanced in both feet, left hemiparesis, essentia l hypertension, hyperkalemia, history of GERD and non-STEMI ID, history of bacteremia, histo ry of stroke. [...] Color, UA STRAW Clarity, UA CLEAR Specific Hallie, Urine 1.006 1.002 - 1.030 Leukocyte esterase, [...] this note might be different from the [facility] Service: Vascular Surgery Progress Note SUBJECTIVE Patient Summary: 74 y.o. man with complex medical issues and LE ischemic ulcers, he wa s recently admitted to the [facility] from 03/28/19 to 04/04/19 where he was treated/ diagnosed with systolic heart failure, type 2 ID/NSTEMI, SHAE, ARF. O2 desaturation brought him from SNF to [facility] and current admission today with CHF and [...] will have him scheduled for 04/12/2019 at [facility] [employer] for his first leg, then will plan [...] Hospitalist Progress Note Reagan Shepard 74 y.o. [id number] male Jamar Manuel MD Hospital Day: LOS: 3 days Patient Summary: 74-year-old gentleman with past medical history of bilateral nonheali ng diabetic foot ulcer, and history of traumatic brain injury, stroke, diabetes mellitus typ e 2 insulin-dependent who was recently admitted to [facility] from 03/28/21 020 with acute hypoxic respiratory failure secondary to systolic CHF exacerbation with eject ion fraction of 40%, CTA chest negative for PE, troponin was minimally elevated 0.44 treated conservatively with medical therapy discharge to [facility] who went back to [facility] emergency department with worsening shortness of [...] 04/09/2019 1044 Gross per 24 hour Intake 54620 ml Output 9850 ml Net 856 ml [...] received 8 days of IV antibiotic at [facility] discharged home on on Augmentin readmitted on at [facility] and started on Rocephin after sending [...] might be different from the o riginal. [facility] Service: Podiatry Progress Note Hospital Day: LOS: 3 days Post-Op Day: * No surgery found * SUBJECTIVE Patient Summary: The patient is 74 y.o. male with significant cardiac and IDDM2 past medical history with recent admissions to [facility] where he was found to have el evated troponin level and he became decompensated and desaturated and was transferred to [facility] for a higher level of care. Although [...] Ady Mata RN - 04/08/2019 9:49 PM [id number]: pt a/o to all, vss. cbi in [...] Hospitalist Progress Note Reagan Shepard 74 y.o. [id number] male Jamar Manuel MD Hospital Day: LOS: 2 days Patient Summary: 74-year-old gentleman with past medical history of bilateral nonheali ng diabetic foot ulcer, and history of traumatic brain injury, stroke, diabetes mellitus typ e 2 insulin-dependent who was recently admitted to [facility] from 03/28/21 020 with acute hypoxic respiratory failure secondary to systolic CHF exacerbation with eject ion fraction of 40%, CTA chest negative for PE, troponin was minimally elevated 0.44 treated conservatively with medical therapy discharge to [facility] who went back to [facility] emergency department with worsening shortness of [...] results found for: POCTEMP, POCFIO2, POCPO2, BEART @[facility]@ PROBLEM LIST Principal Problem: Gross hematuria [...] received 8 days of IV antibiotic at [facility] discharged home on on Augmentin readmitted on at [facility] and started on Rocephin after sending [...] might be different from th e original. [facility] Service: Cardiology Progress Note Hospital Day: LOS: [...] Nandini Barboza RN - 04/07/2019 10:48 PM [id number]: pt a/o to all, occasionally forgetful, vss. [...] Hospitalist Progress Note Reagan Shepard 74 y.o. [id number] male Jamar Manuel MD Hospital Day: LOS: 1 day Patient Summary: 74-year-old gentleman with past medical history of bilateral nonheali ng diabetic foot ulcer, and history of traumatic brain injury, stroke, diabetes mellitus typ e 2 insulin-dependent who was recently admitted to [facility] from 03/28/21 020 with acute hypoxic respiratory failure secondary to systolic CHF exacerbation with eject ion fraction of 40%, CTA chest negative for PE, troponin was minimally elevated 0.44 treated conservatively with medical therapy discharge to [facility] who went back to [facility] emergency department with worsening shortness of [...] received 8 days of IV antibiotic at [facility] discharged home on on Augmentin readmitted on at [facility] and started on Rocephin after sending [...] might be different from th tiffany original. [facility] Service: Cardiology Progress Note Hospital Day: LOS: [...] Novoa RN - 04/06/2019 10:15 AM [facility] Service: Wound/Ostomy Care Progress Note Wound [...] | | | | | right foot ([facility]) | 04/20/2019 until | | | | | | 04/20/2020 | + +---------+--------+ + + | Comprehensive | Lab | Routin | Other | Weekly for 2 | | Metabolic Panel | | e | osteomyelitis of | Occurrences starting | | | | | right foot ([facility]) | 04/20/2019 until | | | | | | 04/20/2020 | + +---------+--------+ + + | C-Reactive Protein | Lab | Routin | Other | Weekly for 6 | | | | e | osteomyelitis of | Occurrences starting | | | | | right foot ([facility]) | 04/20/2019 until | | | | | | 04/20/2020 | + +---------+--------+ + + | Sedimentation Rate | Lab | Routin | Other | Weekly for 6 | | | | e | osteomyelitis of | Occurrences starting | | | | | right foot ([facility]) | 04/20/2019 until | | | [...] 3.6 | 2.3 - 4.8 mg/dL | [facility] | | | | | | LABORATORY | | + + + + + + | Estimated | >60Comment: GFR <60: | >60 | [facility] | | | GFR | CHRONIC [...] | | | | | performed at [facility] | | | | | | [facility];[place], [place] | | | | | | [address] | | | | + + + + + + + + | Specimen | + + | Blood | + + + + + + + | Performing | Address | City/State/Zipcode | Phone Number | | Organization | | | | + + + + + | [facility] | [address] | [place] [address] | [phone] | + + + + + POC Glucose (04/21/2019 11:54 AM PST) + + + + + + | Component | Value | Ref Range | Performed | Pathologist | | | | | At | Signature | + + + + + + | Glucose, | 164 (H)Comment: Testing | 65 - 99 mg/dL | [facility] | | | POC | performed at [facility];[address] | | LABORATORY | | | | [address];[place] | | | | | | [address] | | | | + + + + + + + + | Specimen | + + | | + + + + + + + | Performing | Address | City/State/Zipcode | Phone Number | | Organization | | | | + + + + + | [facility] | [address] | [place] [address] | [phone] | + + + + + POC [...] | | | POC | performed at [facility];[address] | | LABORATORY | | | | [address];[place], [place] | | | | | | [address] | | | | + + + + + + + + | Specimen | + + | | + + + + + + + | Performing | Address | City/State/Zipcode | Phone Number | | Organization | | | | + + + + + | [facility] | [address] | [place] [address] | [phone] | + + + + + POC [...] | | | POC | performed at [facility];[address] | | LABORATORY | | | | [address];[place] | | | | | | [address] | | | | + + + + + + + + | Specimen | + + | | + + + + + + + | Performing | Address | City/State/Zipcode | Phone Number | | Organization | | | | + + + + + | [facility] | [address] | [place] [address] | [phone] | + + + + + POC Glucose (04/20/2019 9:08 PM PST) + + + + + + | Component | Value | Ref Range | Performed | Pathologist | | | | | At | Signature | + + + + + + | Glucose, | 157 (H)Comment: Testing | 65 - 99 mg/dL | [facility] | | | POC | performed at [facility];[address] | | LABORATORY | | | | [address];[place] | | | | | | [address] | | | | + + + + + + + + | Specimen | + + | | + + + + + + + | Performing | Address | City/State/Zipcode | Phone Number | | Organization | | | | + + + + + | [facility] | [address] | [place] [address] | [phone] | + + + + + POC [...] | | | POC | performed at [facility];[address] | | LABORATORY | | | | [address];[place], [place] | | | | | | [address] | | | | + + + + + + + + | Specimen | + + | | + + + + + + + | Performing | Address | City/State/Zipcode | Phone Number | | Organization | | | | + + + + + | [facility] | [address] | [place] [address] | [phone] | + + + + + POC Glucose (04/20/2019 5:04 PM PST) + + + + + + | Component | Value | Ref Range | Performed | Pathologist | | | | | At | Signature | + + + + + + | Glucose, | 199 (H)Comment: Testing | 65 - 99 mg/dL | [facility] | | | POC | performed at [facility];[address] | | LABORATORY | | | | [address];[place] | | | | | | [address] | | | | + + + + + + + + | Specimen | + + | | + + + + + + + | Performing | Address | City/State/Zipcode | Phone Number | | Organization | | | | + + + + + | [facility] | [address] | [place] [address] | [phone] | + + + + + POC Glucose (04/20/2019 12:44 PM PST) + + + + + + | Component | Value | Ref Range | Performed | Pathologist | | | | | At | Signature | + + + + + + | Glucose, | 273 (H)Comment: Testing | 65 - 99 mg/dL | [facility] | | | POC | performed at [facility];[address] | | LABORATORY | | | | [address];[place], [place] | | | | | | [address] | | | | + + + + + + + + | Specimen | + + | | + + + + + + + | Performing | Address | City/State/Zipcode | Phone Number | | Organization | | | | + + + + + | [facility] | [address] | [place] [address] | [phone] | + + + + + Vancomycin Level (04/20/2019 12:39 PM PST) + + + + + + | Component | Value | Ref Range | Performed | Pathologist | | | | | At | Signature | + + + + + + | Vancomycin | 18.3Comment: Testing | ug/mL | [facility] | | | Random, | performed at [facility];[address] | | LABORATORY | | | Serum | [address];[place], [place] | | | | | | [address] | | | | + + + + + + + + | Specimen | + + | Blood | + + + + + + + | Performing | Address | City/State/Zipcode | Phone Number | | Organization | | | | + + + + + | [facility] | [address] | [place] [address] | [phone] | + + + + + POC Glucose (04/20/2019 8:58 AM PST) + + + + + + | Component | Value | Ref Range | Performed | Pathologist | | | | | At | Signature | + + + + + + | Glucose, | 244 (H)Comment: Testing | 65 - 99 mg/dL | [facility] | | | POC | performed at [facility];[address] | | LABORATORY | | | | [address];[place] | | | | | | [address] | | | | + + + + + + + + | Specimen | + + | | + + + + + + + | Performing | Address | City/State/Zipcode | Phone Number | | Organization | | | | + + + + + | [facility] | [address] | [place] [address] | [phone] | + + + + + POC Glucose (04/20/2019 8:16 AM PST) + + + + + + | Component | Value | Ref Range | Performed | Pathologist | | | | | At | Signature | + + + + + + | Glucose, | 300 (H)Comment: Testing | 65 - 99 mg/dL | [facility] | | | POC | performed at [facility];[address] | | LABORATORY | | | | [address];[place] | | | | | | [address] | | | | + + + + + + + + | Specimen | + + | | + + + + + + + | Performing | Address | City/State/Zipcode | Phone Number | | Organization | | | | + + + + + | [facility] | [address] | [place] [address] | [phone] | + + + + + POC [...] | | | POC | performed at [facility];[address] | | LABORATORY | | | | [address];[place], [place] | | | | | | [address] | | | | + + + + + + + + | Specimen | + + | | + + + + + + + | Performing | Address | City/State/Zipcode | Phone Number | | Organization | | | | + + + + + | [facility] | [address] | [place] [address] | [phone] | + + + + + POC [...] | | | POC | performed at [facility];[address] | | LABORATORY | | | | [address];[place], [place] | | | | | | [address] | | | | + + + + + + + + | Specimen | + + | | + + + + + + + | Performing | Address | City/State/Zipcode | Phone Number | | Organization | | | | + + + + + | [facility] | [address] | [place] [address] | [phone] | + + + + + POC [...] | | | POC | performed at [facility];[address] | | LABORATORY | | | | [address];[place], [place] | | | | | | [address] | | | | + + + + + + + + | Specimen | + + | | + + + + + + + | Performing | Address | City/State/Zipcode | Phone Number | | Organization | | | | + + + + + | [facility] | [address] | [place] [address] | [phone] | + + + + + POC Glucose (04/19/2019 8:13 AM PST) + + + + + + | Component | Value | Ref Range | Performed | Pathologist | | | | | At | Signature | + + + + + + | Glucose, | 176 (H)Comment: Testing | 65 - 99 mg/dL | [facility] | | | POC | performed at [facility];[address] | | LABORATORY | | | | [address];[place] | | | | | | [address] | | | | + + + + + + + + | Specimen | + + | | + + + + + + + | Performing | Address | City/State/Zipcode | Phone Number | | Organization | | | | + + + + + | [facility] | [address] | [place] [address] | [phone] | + + + + + Basic [...] 8.0 (L) | 8.5 - 10.5 | [facility] | | | | | mg/dL | LABORATORY | | + + + + + + | Estimated | >60Comment: GFR <60: | >60 | [facility] | | | GFR | CHRONIC [...] | | | | | performed at [facility], [address] | | | | | | [facility], | | | | | | [place] [address] | | | | + + + + + + + + | Specimen | + + | Blood | + + + + + + + | Performing | Address | City/State/Zipcode | Phone Number | | Organization | | | | + + + + + | [facility] | [address] | [place] [address] | [phone] | + + + + + CBC [...] W | | | | | | [facility], | | | | | | [place] [address] | | | | | |MICRO | | | | | |NORMAL PLT MORPH | | | | | |Testing performed at [facility], [address] [facility], [place] [address] | | | | | | | | | | + + +---- + + + + + | Specimen | + + | Blood | + + + + + + + | Performing | Address | City/State/Zipcode | Phone Number | | Organization | | | | + + + + + | [facility] | [address] | [place] [address] | [phone] | + + + + + POC [...] | | | POC | performed at [facility];[address] | | LABORATORY | | | | [address];[place], [place] | | | | | | [address] | | | | + + + + + + + + | Specimen | + + | | + + + + + + + | Performing | Address | City/State/Zipcode | Phone Number | | Organization | | | | + + + + + | [facility] | [address] | [place] [address] | [phone] | + + + + + POC Glucose (04/18/2019 9:02 PM PST) + + + + + + | Component | Value | Ref Range | Performed | Pathologist | | | | | At | Signature | + + + + + + | Glucose, | 295 (H)Comment: Testing | 65 - 99 mg/dL | [facility] | | | POC | performed at [facility];[address] | | LABORATORY | | | | [address];[place] | | | | | | [address] | | | | + + + + + + + + | Specimen | + + | | + + + + + + + | Performing | Address | City/State/Zipcode | Phone Number | | Organization | | | | + + + + + | [facility] | [address] | [place] [address] | [phone] | + + + + + POC Glucose (04/18/2019 8:01 PM PST) + + + + + + | Component | Value | Ref Range | Performed | Pathologist | | | | | At | Signature | + + + + + + | Glucose, | 245 (H)Comment: Testing | 65 - 99 mg/dL | [facility] | | | POC | performed at [facility];[address] | | LABORATORY | | | | [address];[place] | | | | | | [address] | | | | + + + + + + + + | Specimen | + + | | + + + + + + + | Performing | Address | City/State/Zipcode | Phone Number | | Organization | | | | + + + + + | [facility] | [address] | [place] [address] | [phone] | + + + + + POC [...] | | | POC | performed at [facility];[address] | | LABORATORY | | | | [address];[place], [place] | | | | | | [address] | | | | + + + + + + + + | Specimen | + + | | + + + + + + + | Performing | Address | City/State/Zipcode | Phone Number | | Organization | | | | + + + + + | [facility] | [address] | [place] [address] | [phone] | + + + + + POC [...] | | | POC | performed at [facility];[address] | | LABORATORY | | | | [address];[place], [place] | | | | | | [address] | | | | + + + + + + + + | Specimen | + + | | + + + + + + + | Performing | Address | City/State/Zipcode | Phone Number | | Organization | | | | + + + + + | [facility] | [address] | [place] [address] | [phone] | + + + + + NM [...] | | | POC | performed at [facility];[address] | | LABORATORY | | | | [address];[place] | | | | | | [address] | | | | + + + + + + + + | Specimen | + + | | + + + + + + + | Performing | Address | City/State/Zipcode | Phone Number | | Organization | | | | + + + + + | [facility] | [address] | [place] [address] | [phone] | + + + + + Basic [...] | | | | | performed at [facility];[address] | | | | | | [address] [facility];[place], [place] | | | | | | [address] | | | | + + + + + + + + | Specimen | + + | Blood | + + + + + + + | Performing | Address | City/State/Zipcode | Phone Number | | Organization | | | | + + + + + | [facility] | [address] | [place] [address] | [phone] | + + + + + CBC [...] | | | Estimate | performed at [facility];[address] | | LABORATORY | | | | [address];[place] | | | | | | [address] | | | | + + + + + + + + | Specimen | + + | Blood | + + + + + + + | Performing | Address | City/State/Zipcode | Phone Number | | Organization | | | | + + + + + | [facility] | [address] | [place] [address] | [phone] | + + + + + POC [...] | | | POC | performed at [facility];[address] | | LABORATORY | | | | [address];[place] | | | | | | [address] | | | | + + + + + + + + | Specimen | + + | | + + + + + + + | Performing | Address | City/State/Zipcode | Phone Number | | Organization | | | | + + + + + | [facility] | [address] | [place] [address] | [phone] | + + + + + POC [...] | | | POC | performed at [facility];[address] | | LABORATORY | | | | [address];[place], [place] | | | | | | [address] | | | | + + + + + + + + | Specimen | + + | | + + + + + + + | Performing | Address | City/State/Zipcode | Phone Number | | Organization | | | | + + + + + | [facility] | [address] | [place] [address] | [phone] | + + + + + Vancomycin, [...] | | | | | performed at [facility] | | | | | | [address];[place], [place] | | | | | | [address] | | | | + + + + + + + + | Specimen | + + | Blood | + + + + + + + | Performing | Address | City/State/Zipcode | Phone Number | | Organization | | | | + + + + + | [facility] | [address] | [place] [address] | [phone] | + + + + + POC Glucose (04/17/2019 12:05 PM PST) + + + + + + | Component | Value | Ref Range | Performed | Pathologist | | | | | At | Signature | + + + + + + | Glucose, | 200 (H)Comment: Testing | 65 - 99 mg/dL | [facility] | | | POC | performed at [facility];[address] | | LABORATORY | | | | [address];[place] | | | | | | [address] | | | | + + + + + + + + | Specimen | + + | | + + + + + + + | Performing | Address | City/State/Zipcode | Phone Number | | Organization | | | | + + + + + | [facility] | [address] | [place] [address] | [phone] | + + + + + POC Glucose (04/17/2019 10:11 AM PST) + + + + + + | Component | Value | Ref Range | Performed | Pathologist | | | | | At | Signature | + + + + + + | Glucose, | 138 (H)Comment: Testing | 65 - 99 mg/dL | [facility] | | | POC | performed at [facility];[address] | | LABORATORY | | | | [address];[place] | | | | | | [address] | | | | + + + + + + + + | Specimen | + + | | + + + + + + + | Performing | Address | City/State/Zipcode | Phone Number | | Organization | | | | + + + + + | [facility] | [address] | [place] [address] | [phone] | + + + + + POC [...] | | | POC | performed at [facility];[address] | | LABORATORY | | | | [address];[place], [place] | | | | | | [address] | | | | + + + + + + + + | Specimen | + + | | + + + + + + + | Performing | Address | City/State/Zipcode | Phone Number | | Organization | | | | + + + + + | [facility] | [address] | [place] [address] | [phone] | + + + + + Basic [...] | >60Comment: GFR <60: | >60 | [facility] | | | GFR | CHRONIC [...] | | | | | performed at [facility], [address] | | | | | [facility], | | | | | | [place] [address] | | | | + + + + + + + + | Specimen | + + | Blood | + + + + + + + | Performing | Address | City/State/Zipcode | Phone Number | | Organization | | | | + + + + + | [facility] | [address] | [place] [address] | [phone] | + + + + + CBC [...] [address], | | | | | | [place] [address] | | | | | |MICRO | | | | | |NORMAL PLT MORPH | | | | | |Testing performed at [facility], [address] [facility], [place] [address] | | | | | | | | | | + + +---- + + + + + | Specimen | + + | Blood | + + + + + + + | Performing | Address | City/State/Zipcode | Phone Number | | Organization | | | | + + + + + | [facility] | [address] [facility] | [place] [address] | [phone] | + + + + + POC Glucose (04/16/2019 8:57 PM PST) + + + + + + | Component | Value | Ref Range | Performed | Pathologist | | | | | At | Signature | + + + + + + | Glucose, | 96Comment: Testing | 65 - 99 mg/dL | [facility] | | | POC | performed at [facility];[address] | | LABORATORY | | | | [address];[place], [place] | | | | | | [address] | | | | + + + + + + + + | Specimen | + + | | + + + + + + + | Performing | Address | City/State/Zipcode | Phone Number | | Organization | | | | + + + + + | [facility] | [address] | [place] [address] | [phone] | + + + + + POC [...] | | | POC | performed at [facility];[address] | | LABORATORY | | | | [address];[place] | | | | | | [address] | | | | + + + + + + + + | Specimen | + + | | + + + + + + + | Performing | Address | City/State/Zipcode | Phone Number | | Organization | | | | + + + + + | [facility] | [address] | [place] [address] | [phone] | + + + + + POC Glucose (04/16/2019 1:15 PM PST) + + + + + + | Component | Value | Ref Range | Performed | Pathologist | | | | | At | Signature | + + + + + + | Glucose, | 106 (H)Comment: Testing | 65 - 99 mg/dL | [facility] | | | POC | performed at [facility] [place];[address] | | LABORATORY | | | | [address];[place] | | | | | | [id number] | | | | + + + + + + + + | Specimen | + + | | + + + + + + + | Performing | Address | City/State/Zipcode | Phone Number | | Organization | | | | + + + + + | [facility] | [address] | [place] [address] | [phone] | + + + + + POC [...] | | | POC | performed at [facility] [place];[address] | | LABORATORY | | | | [address];[place] | | | | | | [id number] | | | | + + + + + + + + | Specimen | + + | | + + + + + + + | Performing | Address | City/State/Zipcode | Phone Number | | Organization | | | | + + + + + | [facility] | [address] | [place] [address] | [phone] | + + + + + CBC [...] | | | | | performed at [facility], [address] | | | | | | [address], | | | | | | [place] [address] | | | | | |MICRO | | | | | |NORMAL PLT MORPH | | | | | |Testing performed at [facility], [address] [place] [address] | | | | | | | | | | + + +---- + + + + + | Specimen | + + | Blood | + + + + + + + | Performing | Address | City/State/Zipcode | Phone Number | | Organization | | | | + + + + + | [facility] | [address] [facility] | [place] [address] | [phone] | + + + + + Basic [...] | | | | | performed at [facility], [address] | | | | | | [place], | | | | | | [place] [address] | | | | + + + + + + + + | Specimen | + + | Blood | + + + + + + + | Performing | Address | City/State/Zipcode | Phone Number | | Organization | | | | + + + + + | [facility] | [address] | [place] [address] | [phone] | + + + + + POC [...] | | | POC | performed at [facility];[address] | | LABORATORY | | | | [address];[place] | | | | | | [address] | | | | + + + + + + + + | Specimen | + + | | + + + + + + + | Performing | Address | City/State/Zipcode | Phone Number | | Organization | | | | + + + + + | [facility] | [address] | [place] [address] | [phone] | + + + + + POC Glucose (04/15/2019 4:51 PM PST) + + + + + + | Component | Value | Ref Range | Performed | Pathologist | | | | | At | Signature | + + + + + + | Glucose, | 239 (H)Comment: Testing | 65 - 99 mg/dL | [facility] | | | POC | performed at [facility];[address] | | LABORATORY | | | | [address];[place] | | | | | | [address] | | | | + + + + + + + + | Specimen | + + | | + + + + + + + | Performing | Address | City/State/Zipcode | Phone Number | | Organization | | | | + + + + + | [facility] | [address] | [place] [address] | [phone] | + + + + + POC Glucose (04/15/2019 1:19 PM PST) + + + + + + | Component | Value | Ref Range | Performed | Pathologist | | | | | At | Signature | + + + + + + | Glucose, | 227 (H)Comment: Testing | 65 - 99 mg/dL | [facility] | | | POC | performed at [facility];[address] | | LABORATORY | | | | [address];[place] | | | | | | [address] | | | | + + + + + + + + | Specimen | + + | | + + + + + + + | Performing | Address | City/State/Zipcode | Phone Number | | Organization | | | | + + + + + | [facility] | [address] | [place] [address] | [phone] | + + + + + Type [...] + + + | BB BAND | [id number] | | [facility] | | | | | | LABORATORY | | + + + + + + | UNIT # | [id number] | | [facility] | | | | [...] + + + | UNIT # | [id number] | | [facility] | | | | [...] + + + | UNIT # | [id number] | | [facility] | | | | [...] | | | RESULT | performed at [facility];[address] | | LABORATORY | | | | [address];[place], [place] | | | | | | [address] | | | | + + + + + + + + | Specimen | + + | Blood | + + + + + + + | Performing | Address | City/State/Zipcode | Phone Number | | Organization | | | | + + + + + | [facility] | [address] | [place] [address] | [phone] | + + + + + Red [...] | ORDER RECEIVED IN BLOOD | | [facility] | | | COMMENT | BANK. | | LABORATORY | | + + + + + + | BLOOD BANK | Testing performed at | | [facility] | | | COMMENT | [facility];[address] | | LABORATORY | | | | [address];[place] [address] | | | | + + + + + + + + | Specimen | + + | | + + + + + + + | Performing | Address | City/State/Zipcode | Phone Number | | Organization | | | | + + + + + | [facility] | [address] | [place] [address] | [phone] | + + + + + POC Glucose (04/15/2019 9:11 AM PST) + + + + + + | Component | Value | Ref Range | Performed | Pathologist | | | | | At | Signature | + + + + + + | Glucose, | 165 (H)Comment: Testing | 65 - 99 mg/dL | [facility] | | | POC | performed at [facility];[address] | | LABORATORY | | | | [address];[place] | | | | | | [address] | | | | + + + + + + + + | Specimen | + + | | + + + + + + + | Performing | Address | City/State/Zipcode | Phone Number | | Organization | | | | + + + + + | [facility] | [address] | [place] [address] | [phone] | + + + + + Vancomycin, [...] | | | | | performed at [facility] | | | | | | [address];[place], [place] | | | | | | [address] | | | | + + + + + + + + | Specimen | + + | Blood | + + + + + + + | Performing | Address | City/State/Zipcode | Phone Number | | Organization | | | | + + + + + | [facility] | [address] | [place] [address] | [phone] | + + + + + CBC [...] | | | Estimate | performed at [facility];[address] | | LABORATORY | | | | [address];[place] | | | | | | [address] | | | | + + + + + + + + | Specimen | + + | Blood | + + + + + + + | Performing | Address | City/State/Zipcode | Phone Number | | Organization | | | | + + + + + | [facility] | [address] | [place] [address] | [phone] | + + + + + Basic [...] | | | | | performed at [facility];[address] | | | | | | [facility];[place], [place] | | | | | | [address] | | | | + + + + + + + + | Specimen | + + | Blood | + + + + + + + | Performing | Address | City/State/Zipcode | Phone Number | | Organization | | | | + + + + + | [facility] | [address] | [place] [address] | [phone] | + + + + + POC Glucose (04/14/2019 8:15 PM PST) + + + + + + | Component | Value | Ref Range | Performed | Pathologist | | | | | At | Signature | + + + + + + | Glucose, | 159 (H)Comment: Testing | 65 - 99 mg/dL | [facility] | | | POC | performed at [facility];[address] | | LABORATORY | | | | [address];[place] | | | | | | [address] | | | | + + + + + + + + | Specimen | + + | | + + + + + + + | Performing | Address | City/State/Zipcode | Phone Number | | Organization | | | | + + + + + | [facility] | [address] | [place] [address] | [phone] | + + + + + POC [...] | | | POC | performed at [facility];[address] | | LABORATORY | | | | [address];[place], [place] | | | | | | [address] | | | | + + + + + + + + | Specimen | + + | | + + + + + + + | Performing | Address | City/State/Zipcode | Phone Number | | Organization | | | | + + + + + | [facility] | [address] | [place] [address] | [phone] | + + + + + POC Glucose (04/14/2019 11:43 AM PST) + + + + + + | Component | Value | Ref Range | Performed | Pathologist | | | | | At | Signature | + + + + + + | Glucose, | 153 (H)Comment: Testing | 65 - 99 mg/dL | [facility] | | | POC | performed at [facility];[address] | | LABORATORY | | | | [address];[place] | | | | | | [address] | | | | + + + + + + + + | Specimen | + + | | + + + + + + + | Performing | Address | City/State/Zipcode | Phone Number | | Organization | | | | + + + + + | [facility] | [address] | [place] [address] | [phone] | + + + + + ECHO [...] | | | POC | performed at [facility];[address] | | LABORATORY | | | | [address];[place] | | | | | | [address] | | | | + + + + + + + + | Specimen | + + | | + + + + + + + | Performing | Address | City/State/Zipcode | Phone Number | | Organization | | | | + + + + + | [facility] | [address] | [place] [address] | [phone] | + + + + + B [...] | | LABORATORY | | | | [facility];[address];[place] [address] | | | | + + + + + + + + | Specimen | + + | | + + + + + + + | Performing | Address | City/State/Zipcode | Phone Number | | Organization | | | | + + + + + | [facility] | [address] | [place] [address] | [phone] | + + + + + CBC [...] | | | Estimate | performed at [facility];[address] | | LABORATORY | | | | [address];[place] | | | | | | [address] | | | | + + + + + + + + | Specimen | + + | | + + + + + + + | Performing | Address | City/State/Zipcode | Phone Number | | Organization | | | | + + + + + | [facility] | [address] | [place] [address] | [phone] | + + + + + Troponin [...] at | | | | | | [facility];[address] [facility] | | | | | | [facility];[place] [address] | | | | + + + + + + + + | Specimen | + + | Blood | + + + + + + + | Performing | Address | City/State/Zipcode | Phone Number | | Organization | | | | + + + + + | [facility] | [address] | [place] [address] | [phone] | + + + + + Basic [...] | >60Comment: GFR <60: | >60 | [facility] | | | GFR | CHRONIC [...] | | | | | | MDRD [facility] traceable | | | | | | equation.Testing | | | | | | performed at [facility] | | | | | | [facility];[place], [place] | | | | | | [address] | | | | + + + + + + + + | Specimen | + + | Blood | + + + + + + + | Performing | Address | City/State/Zipcode | Phone Number | | Organization | | | | + + + + + | [facility] | [address] | [place] [address] | [phone] | + + + + + Vancomycin Level (04/14/2019 4:53 AM PST) + + + + + + | Component | Value | Ref Range | Performed | Pathologist | | | | | At | Signature | + + + + + + | Vancomycin | 20.6Comment: Testing | ug/mL | [facility] | | | Random, | performed at [facility];[address] | | LABORATORY | | | Serum | [address];[place] | | | | | | [address] | | | | + + + + + + + + | Specimen | + + | Blood | + + + + + + + | Performing | Address | City/State/Zipcode | Phone Number | | Organization | | | | + + + + + | [facility] | [address] | [place] [address] | [phone] | + + + + + POC Glucose (04/14/2019 1:46 AM PST) + + + + + + | Component | Value | Ref Range | Performed | Pathologist | | | | | At | Signature | + + + + + + | Glucose, | 166 (H)Comment: Testing | 65 - 99 mg/dL | [facility] | | | POC | performed at [facility];[address] | | LABORATORY | | | | [address];[place] | | | | | | [address] | | | | + + + + + + + + | Specimen | + + | | + + + + + + + | Performing | Address | City/State/Zipcode | Phone Number | | Organization | | | | + + + + + | [facility] | [address] | [place] [address] | [phone] | + + + + + Troponin I (04/14/2019 1:19 AM PST) + + + + + + | Component | Value | Ref Range | Performed | Pathologist | | | | | At | Signature | + + + + + + | Troponin I | 0.015Comment: 0.04 | 0.00 - 0.04 | [facility] | | | | ng/mL or [...] at | | | | | | [facility];[address];[place] [address] | | | | + + + + + + + + | Specimen | + + | Blood | + + + + + + + | Performing | Address | City/State/Zipcode | Phone Number | | Organization | | | | + + + + + | [facility] | [address] | [place] [address] | [phone] | + + + + + ECG [...] | | | POC | performed at [facility];[address] | | LABORATORY | | | | [address];[place] | | | | | | [address] | | | | + + + + + + + + | Specimen | + + | | + + + + + + + | Performing | Address | City/State/Zipcode | Phone Number | | Organization | | | | + + + + + | [facility] | [address] | [place] [address] | [phone] | + + + + + POC Glucose (04/13/2019 4:19 PM PST) + + + + + + | Component | Value | Ref Range | Performed | Pathologist | | | | | At | Signature | + + + + + + | Glucose, | 109 (H)Comment: Testing | 65 - 99 mg/dL | [facility] | | | POC | performed at [facility];[address] | | LABORATORY | | | | [address];[place] | | | | | | [address] | | | | + + + + + + + + | Specimen | + + | | + + + + + + + | Performing | Address | City/State/Zipcode | Phone Number | | Organization | | | | + + + + + | [facility] | [address] | [place] [address] | [phone] | + + + + + XR [...] catheterization with right leg runoff4. Right SFA GROUND CREWMAN MISSION SUPPORT | | | crossing and atherectomy using Bard 14 S crossing catheter SURGEON: | | | Simba Cheng MD HOUSING INSTALLER: None ANESTHESIA: Moderate sedation and local | [...] | | identified and brought to the Paper [employer] Drying Machine Operator. The patient was placed supine | | [...] sized to a 4 | | | South African sheath. A Omni flush catheter was then [...] inserted over the catheter and the 4 South African sheath was | | | removed. A 7 South African destination sheath was then inserted over the [...] | | | POC | performed at [facility];[address] | | LABORATORY | | | | [address];[place], [place] | | | | | | [address] | | | | + + + + + + + + | Specimen | + + | | + + + + + + + | Performing | Address | City/State/Zipcode | Phone Number | | Organization | | | | + + + + + | [facility] | [address] | [place] [address] | [phone] | + + + + + POC [...] | | | POC | performed at [facility];[address] | | LABORATORY | | | | [address];[place], [place] | | | | | | [address] | | | | + + + + + + + + | Specimen | + + | | + + + + + + + | Performing | Address | City/State/Zipcode | Phone Number | | Organization | | | | + + + + + | [facility] | [address] | [place] [address] | [phone] | + + + + + Basic [...] | | | | | performed at [facility], [address] | | | | | | [facility], | | | | | | [place] [address] | | | | + + + + + + + + | Specimen | + + | Blood | + + + + + + + | Performing | Address | City/State/Zipcode | Phone Number | | Organization | | | | + + + + + | [facility] | [address] | [place] [address] | [phone] | + + + + + CBC [...] | | | | | performed at [facility], [facility] [address] | | | | | | [facility], | | | | | | [place] [address] | | | | | |MICRO | | | | | |NORMAL PLT MORPH | | | | | |Testing performed at [facility], [place] [address] | | | | | | | | | | + + +---- + + + + + | Specimen | + + | Blood | + + + + + + + | Performing | Address | City/State/Zipcode | Phone Number | | Organization | | | | + + + + + | [facility] | [address] | [place] [address] | [phone] | + + + + + POC Glucose (04/13/2019 3:30 AM PST) + + + + + + | Component | Value | Ref Range | Performed | Pathologist | | | | | At | Signature | + + + + + + | Glucose, | 147 (H)Comment: Testing | 65 - 99 mg/dL | [facility] | | | POC | performed at [facility];[address] | | LABORATORY | | | | [address];[place], [place] | | | | | | [address] | | | | + + + + + + + + | Specimen | + + | | + + + + + + + | Performing | Address | City/State/Zipcode | Phone Number | | Organization | | | | + + + + + | [facility] | [address] | [place] [address] | [phone] | + + + + + POC [...] | | | POC | performed at [facility];[address] | | LABORATORY | | | | [address];[place], [place] | | | | | | [address] | | | | + + + + + + + + | Specimen | + + | | + + + + + + + | Performing | Address | City/State/Zipcode | Phone Number | | Organization | | | | + + + + + | [facility] | [address] | [place] [address] | [phone] | + + + + + POC Glucose (04/12/2019 4:28 PM PST) + + + + + + | Component | Value | Ref Range | Performed | Pathologist | | | | | At | Signature | + + + + + + | Glucose, | 211 (H)Comment: Testing | 65 - 99 mg/dL | [facility] | | | POC | performed at [facility];[address] | | LABORATORY | | | | [address];[place], [place] | | | | | | [address] | | | | + + + + + + + + | Specimen | + + | | + + + + + + + | Performing | Address | City/State/Zipcode | Phone Number | | Organization | | | | + + + + + | [facility] | [address] | [place] [address] | [phone] | + + + + + POC Glucose (04/12/2019 11:53 AM PST) + + + + + + | Component | Value | Ref Range | Performed | Pathologist | | | | | At | Signature | + + + + + + | Glucose, | 162 (H)Comment: Testing | 65 - 99 mg/dL | [facility] | | | POC | performed at [facility];[address] | | LABORATORY | | | | [address];[place] | | | | | | [address] | | | | + + + + + + + + | Specimen | + + | | + + + + + + + | Performing | Address | City/State/Zipcode | Phone Number | | Organization | | | | + + + + + | [facility] | [address] | [place] [address] | [phone] | + + + + + POC [...] | | | POC | performed at [facility];[address] | | LABORATORY | | | | [address];[place], [place] | | | | | | [address] | | | | + + + + + + + + | Specimen | + + | | + + + + + + + | Performing | Address | City/State/Zipcode | Phone Number | | Organization | | | | + + + + + | [facility] | [address] | [place] [address] | [phone] | + + + + + Basic [...] 8.2 (L) | 8.5 - 10.5 | [facility] | | | | | mg/dL | LABORATORY | | + + + + + + | Estimated | >60Comment: GFR <60: | >60 | [facility] | | | GFR | CHRONIC [...] | | | | | performed at [facility], [address] | | | | | | [facility], | | | | | | [place] [address] | | | | + + + + + + + + | Specimen | + + | Blood | + + + + + + + | Performing | Address | City/State/Zipcode | Phone Number | | Organization | | | | + + + + + | [facility] | [address] | [place] [address] | [phone] | + + + + + CBC [...] | | | | | performed at [facility], [address] | | | | | | [address], | | | | | | [place] [address] | | | | | |MICRO | | | | | |NORMAL PLT MORPH | | | | | |Testing performed at [facility], [address] [facility], [place] [address] | | | | | | | | | | + + +---- + + + + + | Specimen | + + | Blood | + + + + + + + | Performing | Address | City/State/Zipcode | Phone Number | | Organization | | | | + + + + + | [facility] | [address] [facility] | [place] [address] | [phone] | + + + + + POC [...] | | | POC | performed at [facility];[address] | | LABORATORY | | | | [address];[place], [place] | | | | | | [address] | | | | + + + + + + + + | Specimen | + + | | + + + + + + + | Performing | Address | City/State/Zipcode | Phone Number | | Organization | | | | + + + + + | [facility] | [address] | [place] [address] | [phone] | + + + + + POC [...] | | | POC | performed at [facility];[address] | | LABORATORY | | | | [address];[place] | | | | | | [address] | | | | + + + + + + + + | Specimen | + + | | + + + + + + + | Performing | Address | City/State/Zipcode | Phone Number | | Organization | | | | + + + + + | [facility] | [address] | [place] [address] | [phone] | + + + + + POC Glucose (04/11/2019 3:22 PM PST) + + + + + + | Component | Value | Ref Range | Performed | Pathologist | | | | | At | Signature | + + + + + + | Glucose, | 168 (H)Comment: Testing | 65 - 99 mg/dL | [facility] | | | POC | performed at [facility];[address] | | LABORATORY | | | | [address];[place], [place] | | | | | | [address] | | | | + + + + + + + + | Specimen | + + | | + + + + + + + | Performing | Address | City/State/Zipcode | Phone Number | | Organization | | | | + + + + + | [facility] | [address] | [place] [address] | [phone] | + + + + + IR [...] x 150 mm | | | angioplasty [id number]. Left SFA stenting using 7 x 120 mm | | | self-expanding stent SURGEON: Simba Cheng MD HOUSING INSTALLER: None ANESTHESIA: | | | Moderate sedation [...] | | identified and brought to the [employer] Drying Machine Operator. The patient was placed supine | | [...] sized to a 4 | | | South African sheath. A Omni flush catheter was then [...] inserted over the catheter and the 4 South African sheath was | | | removed. A 7 South African destination sheath was then inserted over the [...] using a | | | Glidewire and Ophir catheter. A 0.009 wire was then passed [...] crossed using a | | |Glidewire and Ophir catheter. A 0.009 wire was then passed [...] | | | POC | performed at [facility] [place];[address] | [address] | | | | [address];[place], [place] | | | | | | [address] | | | | + + + + + + + + | Specimen | + + | | + + + + + + + | Performing | Address | City/State/Zipcode | Phone Number | | Organization | | | | + + + + + | [facility] | [address] | [place] [address] | [phone] | + + + + + B Type Natriuretic Peptide (04/11/2019 5:48 AM PST) + + + + + + | Component | Value | Ref Range | Performed | Pathologist | | | | | At | Signature | + + + + + + | BNP | 220.45 (H)Comment: | 0 - 100 pg/mL | [facility] | | | | Testing performed at | | LABORATORY | | | | [facility] [place];[address] | | | | | | [address];[place] [address] | | | | + + + + + + + + | Specimen | + + | Blood | + + + + + + + | Performing | Address | City/State/Zipcode | Phone Number | | Organization | | | | + + + + + | [facility] | [address] | [place] [address] | [phone] | + + + + + Basic [...] | | | | | performed at [facility], [address] | | | | | [facility], | | | | | | [place] [address] | | | | + + + + + + + + | Specimen | + + | Blood | + + + + + + + | Performing | Address | City/State/Zipcode | Phone Number | | Organization | | | | + + + + + | [facility] | [address] | [place] [address] | [phone] | + + + + + CBC [...] | | | | | | at [facility], [address] | | | | | | [facility], | | | | | | [place] [address] | | | | | |Testing performed at [facility], [address] [place] [address] | | | | | | | | | | + + +---- + + + + + | Specimen | + + | Blood | + + + + + + + | Performing | Address | City/State/Zipcode | Phone Number | | Organization | | | | + + + + + | [facility] | [address] | [place] [address] | [phone] | + + + + + POC [...] | | | POC | performed at [facility] [place];[address] | [address] | | | | [address];[place] | | | | | | [address] | | | | + + + + + + + + | Specimen | + + | | + + + + + + + | Performing | Address | City/State/Zipcode | Phone Number | | Organization | | | | + + + + + | [facility] | [address] | [place] [address] | [phone] | + + + + + POC Glucose (04/10/2019 2:33 PM PST) + + + + + + | Component | Value | Ref Range | Performed | Pathologist | | | | | At | Signature | + + + + + + | Glucose, | 176 (H)Comment: Testing | 65 - 99 mg/dL | [facility] | | | POC | performed at [facility];[address] | | LABORATORY | | | | [address];[place] | | | | | | [address] | | | | + + + + + + + + | Specimen | + + | | + + + + + + + | Performing | Address | City/State/Zipcode | Phone Number | | Organization | | | | + + + + + | [facility] | [address] | [place] [address] | [phone] | + + + + + [place] [...] | | | POC | performed at [facility];[address] | | LABORATORY | | | | [address];[place], [place] | | | | | | [address] | | | | + + + + + + + + | Specimen | + + | | + + + + + + + | Performing | Address | City/State/Zipcode | Phone Number | | Organization | | | | + + + + + | [facility] | [address] | [place] [address] | [phone] | + + + + + CBC [...] Jaramillo, | | | | | | [place] [address] | | | | + + + + + + + + | Specimen | + + | Blood | + + + + + + + | Performing | Address | City/State/Zipcode | Phone Number | | Organization | | | | + + + + + | [facility] | [address] [facility] | [place] [address] | [phone] | + + + + + POC [...] | | | POC | performed at [facility];[address] | | LABORATORY | | | | [address];[place], [place] | | | | | | [address] | | | | + + + + + + + + | Specimen | + + | | + + + + + + + | Performing | Address | City/State/Zipcode | Phone Number | | Organization | | | | + + + + + | [facility] | [address] | [place] [address] | [phone] | + + + + + POC Glucose (04/09/2019 5:06 PM PST) + + + + + + | Component | Value | Ref Range | Performed | Pathologist | | | | | At | Signature | + + + + + + | Glucose, | 169 (H)Comment: Testing | 65 - 99 mg/dL | [facility] | | | POC | performed at [facility];[address] | | LABORATORY | | | | [address];[place] | | | | | | [address] | | | | + + + + + + + + | Specimen | + + | | + + + + + + + | Performing | Address | City/State/Zipcode | Phone Number | | Organization | | | | + + + + + | [facility] | [address] | [place] [address] | [phone] | + + + + + POC [...] | | | POC | performed at [facility];888 | | LABORATORY | | | | [address];[place] | | | | | | [address] | | | | + + + + + + + + | Specimen | + + | | + + + + + + + | Performing | Address | City/State/Zipcode | Phone Number | | Organization | | | | + + + + + | [facility] | [address] | [place] [address] | [phone] | + + + + + XR [...] | 1+ (A)Comment: Testing | NONE | [facility] | | | Urine | performed at [facility], [address] | | LABORATORY | | | | [address], | | | | | | [place] [address] | | | | + + + + + + + + | Specimen | + + | | + + + + + + + | Performing | Address | City/State/Zipcode | Phone Number | | Organization | | | | + + + + + | [facility] | [address] | [place] [address] | [phone] | + + + + + Urinalysis, [...] - 1.030 | [facility] | | | [place], | | | LABORATORY | | | [...] | + + + + + | [facility] | [address] | [place] [address] | [phone] | + + + + + Sedimentation Rate (04/09/2019 6:16 AM PST) + + + + + + | Component | Value | Ref Range | Performed | Pathologist | | | | | At | Signature | + + + + + + | ESR | 91 (H)Comment: Testing | 0 - 20 mm/Hr | [facility] | | | | performed at [facility], [address] | | LABORATORY | | | | [address], | | | | | | [place] [address] | | | | + + + + + + + + | Specimen | + + | Blood | + + + + + + + | Performing | Address | City/State/Zipcode | Phone Number | | Organization | | | | + + + + + | [facility] | [address] | [place] [address] | [phone] | + + + + + CBC [...] [facility] | | | | performed at [facility], [address] | | LABORATORY | | | | [address], | | | | | | [place] [address] | | | | + + + + + + + + | Specimen | + + | Blood | + + + + + + + | Performing | Address | City/State/Zipcode | Phone Number | | Organization | | | | + + + + + | [facility] | [address] | [place] [address] | [phone] | + + + + + Comprehensive [...] | | | | | performed at [facility], [address] | | | | | | [address] [facility], | | | | | | [place] [address] | | | | + + + + + + + + | Specimen | + + | Blood | + + + + + + + | Performing | Address | City/State/Zipcode | Phone Number | | Organization | | | | + + + + + | [facility] | [address] | [place] [address] | [phone] | + + + + + POC [...] | | | POC | performed at [facility];[address] | | LABORATORY | | | | [address];[place], [place] | | | | | | [address] | | | | + + + + + + + + | Specimen | + + | | + + + + + + + | Performing | Address | City/State/Zipcode | Phone Number | | Organization | | | | + + + + + | [facility] | [address] | [place] [address] | [phone] | + + + + + Fecal Hemoglobin (04/08/2019 7:27 PM PST) + + + + + + | Component | Value | Ref Range | Performed | Pathologist | | | | | At | Signature | + + + + + + | FECAL | NEGATIVEComment: Testing | NEG | [facility] | | | OCCULT BLD | performed at [facility];[address] | | LABORATORY | | | | [address];[place] | | | | | | [address] | | | | + + + + + + + + | Specimen | + + | Stool - Stool | | specimen (specimen) | + + + + + + + | Performing | Address | City/State/Zipcode | Phone Number | | Organization | | | | + + + + + | [facility] | [address] | [place] [address] | [phone] | + + + + + POC Glucose (04/08/2019 6:34 PM PST) + + + + + + | Component | Value | Ref Range | Performed | Pathologist | | | | | At | Signature | + + + + + + | Glucose, | 179 (H)Comment: Testing | 65 - 99 mg/dL | [facility] | | | POC | performed at [facility];[address] | | LABORATORY | | | | [address];[place] | | | | | | [address] | | | | + + + + + + + + | Specimen | + + | | + + + + + + + | Performing | Address | City/State/Zipcode | Phone Number | | Organization | | | | + + + + + | [facility] | [address] | [place] [address] | [phone] | + + + + + XR [...] Testing | 65 - 99 mg/dL | [facility] | | | POC | performed at [facility];[address] | | LABORATORY | | | | [address];[place] | | | | | | [address] | | | | + + + + + + + + | Specimen | + + | | + + + + + + + | Performing | Address | City/State/Zipcode | Phone Number | | Organization | | | | + + + + + | [facility] | [address] | [place] [address] | [phone] | + + + + + XR [...] | | | POC | performed at [facility];[address] | | LABORATORY | | | | [address];[place], [place] | | | | | | [address] | | | | + + + + + + + + | Specimen | + + | | + + + + + + + | Performing | Address | City/State/Zipcode | Phone Number | | Organization | | | | + + + + + | [facility] | [address] | [place] [address] | [phone] | + + + + + B [...] | | LABORATORY | | | | [facility];[address] | | | | | | [place] [address] | | | | + + + + + + + + | Specimen | + + | Blood | + + + + + + + | Performing | Address | City/State/Zipcode | Phone Number | | Organization | | | | + + + + + | [facility] | [address] | [place] [address] | [phone] | + + + + + CBC [...] [facility] | | | | performed at [facility], [address] | | LABORATORY | | | | [facility], | | | | | | [place] [address] | | | | + + + + + + + + | Specimen | + + | Blood | + + + + + + + | Performing | Address | City/State/Zipcode | Phone Number | | Organization | | | | + + + + + | [facility] | [address] | [place] [address] | [phone] | + + + + + Comprehensive [...] | | | | | | [facility]D [facility] traceable | | | | | | equation.Testing | | | | | | performed at [facility], [address] | | | | | | [facility], | | | | | | [place] [address] | | | | + + + + + + + + | Specimen | + + | Blood | + + + + + + + | Performing | Address | City/State/Zipcode | Phone Number | | Organization | | | | + + + + + | [facility] | [address] | [place] [address] | [phone] | + + + + + POC [...] | | | POC | performed at [facility];[address] | | LABORATORY | | | | [address];[place], [place] | | | | | | [address] | | | | + + + + + + + + | Specimen | + + | | + + + + + + + | Performing | Address | City/State/Zipcode | Phone Number | | Organization | | | | + + + + + | [facility] | [address] | [place] [address] | [phone] | + + + + + POC [...] | | | POC | performed at [facility];[address] | | LABORATORY | | | | [address];[place] | | | | | | [address] | | | | + + + + + + + + | Specimen | + + | | + + + + + + + | Performing | Address | City/State/Zipcode | Phone Number | | Organization | | | | + + + + + | [facility] | [address] [facility] | [place] [address] | [phone] | + + + + + POC [...] | | | POC | performed at [facility];[address] | | LABORATORY | | | | [address];[place], [place] | | | | | | [address] | | | | + + + + + + + + | Specimen | + + | | + + + + + + + | Performing | Address | City/State/Zipcode | Phone Number | | Organization | | | | + + + + + | [facility] | [address] | [place] [address] | [phone] | + + + + + XR [...] + | Performing | Address | City/State/[facility] | Phone Number | | Organization [...] | | | POC | performed at [facility];[address] | | LABORATORY | | | | [address];[place], [place] | | | | | | [address] | | | | + + + + + + + + | Specimen | + + | | + + + + + + + | Performing | Address | City/State/Zipcode | Phone Number | | Organization | | | | + + + + + | [facility] | [address] | [place] [address] | [phone] | + + + + + Magnesium [...] | | | | | [place] [address] | | | | + + + + + + + + | Specimen | + + | Blood | + + + + + + + | Performing | Address | City/State/Zipcode | Phone Number | | Organization | | | | + + + + + | [facility] | [address] | [place] [address] | [phone] | + + + + + CBC [...] [facility] | | | | performed at [facility];[address] | | LABORATORY | | | | [address];[place] | | | | | | [address] | | | | + + + + + + + + | Specimen | + + | Blood | + + + + + + + | Performing | Address | City/State/Zipcode | Phone Number | | Organization | | | | + + + + + | [facility] | [address] | [place] [address] | [phone] | + + + + + Comprehensive [...] [place], | | | | | | [place] [address] | | | | + + + + + + + + | Specimen | + + | Blood | + + + + + + + | Performing | Address | City/State/Zipcode | Phone Number | | Organization | | | | + + + + + | [facility] | [address] | [place] [address] | [phone] | + + + + + Iron, Total (04/07/2019 5:02 AM PST) + + + + + + | Component | Value | Ref Range | Performed | Pathologist | | | | | At | Signature | + + + + + + | Iron | 23 (L)Comment: Testing | 45 - 190 ug/dL | [facility] | | | | performed at [facility], [address] | | LABORATORY | | | | [address], | | | | | | [place] [address] | | | | + + + + + + + + | Specimen | + + | Blood | + + + + + + + | Performing | Address | City/State/Zipcode | Phone Number | | Organization | | | | + + + + + | [facility] | [address] | [place] [address] | [phone] | + + + + + POC Glucose (04/06/2019 8:54 PM PST) + + + + + + | Component | Value | Ref Range | Performed | Pathologist | | | | | At | Signature | + + + + + + | Glucose, | 216 (H)Comment: Testing | 65 - 99 mg/dL | [facility] | | | POC | performed at [facility];[address] | | LABORATORY | | | | [address];[place] | | | | | | [address] | | | | + + + + + + + + | Specimen | + + | | + + + + + + + | Performing | Address | City/State/Zipcode | Phone Number | | Organization | | | | + + + + + | [facility] | [address] | [place] [address] | [phone] | + + + + + POC Glucose (04/06/2019 4:29 PM PST) + + + + + + | Component | Value | Ref Range | Performed | Pathologist | | | | | At | Signature | + + + + + + | Glucose, | 173 (H)Comment: Testing | 65 - 99 mg/dL | [facility] | | | POC | performed at [facility];[address] | | LABORATORY | | | | [address];[place], [place] | | | | | | [address] | | | | + + + + + + + + | Specimen | + + | | + + + + + + + | Performing | Address | City/State/Zipcode | Phone Number | | Organization | | | | + + + + + | [facility] | [address] | [place] [address] | [phone] | + + + + + Culture, [...] LABORATORY | | | | Blvd;[place] [address] | | | | + + + + + + | RESULT | 1+NORMAL SKIN CELSA | | [facility] | | | | ISOLATED | | LABORATORY | | | | | | | | + + + + + + | RESULT | NO FURTHER WORKUP | | [facility] | | | | | | LABORATORY | | + + + + + + | RESULT | Testing performed at | | [facility] | | | | [facility], [address] | | LABORATORY | | | | [place] | | | | | | [address]Zbndufh: Testing | | | | | | performed at [facility], [address] | | [address] [place] | | | | | | [address] | | | | + + + + + + + + | Specimen | + + | Body Fluid - Entire | | heel (body | | structure) | + + + + + + + | Performing | Address | City/State/Zipcode | Phone Number | | Organization | | | | + + + + + | [facility] | [address] | [place] [address] | [phone] | + + + + + Culture, [...] | | LABORATORY | | | | Blvd;[place] [address] | | | | + + + [...] Comment: Testing | | | performed at [facility], | | | [address], | | | [place] [address] | +---+ + + + + + + | Performing | Address | City/State/Zipcode | Phone Number | | Organization | | | | + + + + + | [facility] | [address] | [place] [address] | [phone] | + + + + + Ferritin (04/06/2019 2:30 PM PST) + + + + + + | Component | Value | Ref Range | Performed | Pathologist | | | | | At | Signature | + + + + + + | Ferritin | 62Comment: Testing | 11 - 450 ng/mL | [facility] | | | | performed at [facility], [address] | | LABORATORY | | | | [address], | | | | | | [place] [address] | | | | + + + + + + + + | Specimen | + + | Blood | + + + + + + + | Performing | Address | City/State/Zipcode | Phone Number | | Organization | | | | + + + + + | [facility] | [address] | [place] [address] | [phone] | + + + + + Vitamin [...] [facility] | | | | performed at [facility], [address] | | LABORATORY | | | | [address], | | | | | | [place] [address] | | | | + + + + + + + + | Specimen | + + | Blood | + + + + + + + | Performing | Address | City/State/Zipcode | Phone Number | | Organization | | | | + + + + + | [facility] | [address] | [place] [address] | [phone] | + + + + + Troponin I (04/06/2019 2:30 PM PST) + + + + + + | Component | Value | Ref Range | Performed | Pathologist | | | | | At | Signature | + + + + + + | Troponin I | 0.161 (H)Comment: 0.04 | 0.00 - 0.04 | [facility] | | | | ng/mL or [...] at | | | | | | [facility];[address] | | | | | | [address];[place] [address] | | | | + + + + + + + + | Specimen | + + | Blood | + + + + + + + | Performing | Address | City/State/Zipcode | Phone Number | | Organization | | | | + + + + + | [facility] | [address] | [place] [address] | [phone] | + + + + + POC [...] | | | POC | performed at [facility];[address] | | LABORATORY | | | | [address];[place] | | | | | | [address] | | | | + + + + + + + + | Specimen | + + | | + + + + + + + | Performing | Address | City/State/Zipcode | Phone Number | | Organization | | | | + + + + + | [facility] | [address] | [place] [address] | [phone] | + + + + + VAS [...] Testing | 65 - 99 mg/dL | [facility] | | | POC | performed at [facility];[address] | | LABORATORY | | | | [address];[place] | | | | | | [address] | | | | + + + + + + + + | Specimen | + + | | + + + + + + + | Performing | Address | City/State/Zipcode | Phone Number | | Organization | | | | + + + + + | [facility] | [address] | [place] [address] | [phone] | + + + + + Troponin I (04/06/2019 8:31 AM PST) + + + + + + | Component | Value | Ref Range | Performed | Pathologist | | | | | At | Signature | + + + + + + | Troponin I | 0.19 (H)Comment: 0.04 | 0.00 - 0.04 | [facility] | | | | ng/mL or [...] at | | | | | | [facility];[address] [facility] | | | | | | [facility];[place] [address] | | | | + + + + + + + + | Specimen | + + | Blood | + + + + + + + | Performing | Address | City/State/Zipcode | Phone Number | | Organization | | | | + + + + + | [facility] | [address] | [place] [address] | [phone] | + + + + + XR [...] LABORATORY | | | | Blvd;[place] [address] | | | | + + + + + + | RESULT | NO GROWTH 6 DAYS | | [facility] | | | | | | LABORATORY | | + + + + + + | RESULT | Testing performed at | | [facility] | | | | [facility], [address] [facility] | | LABORATORY | | | | [place], [place], [place] | | | | | | [address]Opqnsgi: Testing | | | | | | performed at [facility], [address] | | | | | [facility], [place], [place] | | | | | | [address] | | | | + + + + + + + + | Specimen | + + | Blood - Peripheral | | blood specimen | | (specimen) | + + + + + + + | Performing | Address | City/State/Zipcode | Phone Number | | Organization | | | | + + + + + | [facility] | [address] | [place] [address] | [phone] | + + + + + Culture, [...] LABORATORY | | | | Blvd;[place] [address] | | | | + + + + + + | RESULT | NO GROWTH 6 DAYS | | [facility] | | | | | | LABORATORY | | + + + + + + | RESULT | Testing performed at | | [facility] | | | | [facility], [address] | | LABORATORY | | | | [place], [place] | | | | | | [address]Svxipor: Testing | | | | | | performed at [facility], [address] | | | | | [address] [place], [place] | | | | | | [address] | | | | + + + + + + + + | Specimen | + + | Blood - Peripheral | | blood specimen | | (specimen) | + + + + + + + | Performing | Address | City/State/Zipcode | Phone Number | | Organization | | | | + + + + + | [facility] | [address] | [place] [address] | [phone] | + + + + + B [...] | | LABORATORY | | | | [facility];[address] | | | | | | [address];[place] [address] | | | | + + + + + + + + | Specimen | + + | | + + + + + + + | Performing | Address | City/State/Zipcode | Phone Number | | Organization | | | | + + + + + | [facility] | [address] | [place] [address] | [phone] | + + + + + Lipid [...] | | | Calculated | performed at [facility], [address] | | LABORATORY | | | | [address], | | | | | | [place] [address] | | | | + + + + + + + + | Specimen | + + | Blood | + + + + + + + | Performing | Address | City/State/Zipcode | Phone Number | | Organization | | | | + + + + + | [facility] | [address] | [place] [address] | [phone] | + + + + + Hemoglobin A1C (04/06/2019 2:48 AM PST) + + + + + + | Component | Value | Ref Range | Performed | Pathologist | | | | | At | Signature | + + + + + + | Hemoglobin | 7.8 (H)Comment: HbA1c | 4.0 - 6.0 % | [facility] | | | A1c | method [...] | 177 (H)Comment: | <154 mg/dL | [facility] | | | Average | Estimated Average | | LABORATORY | | | Glucose | Glucose calculated from | | | | | | hemoglobin A1c by use of | | | | | | the ADArecommended | | | | | | formula.Testing | | | | | | performed at [facility], [address] | | | | | | [address], | | | | | | [place] [address] | | | | + + + + + + + + | Specimen | + + | Blood | + + + + + + + | Performing | Address | City/State/Zipcode | Phone Number | | Organization | | | | + + + + + | [facility] | [address] | [place] [address] | [phone] | + + + + + Magnesium (04/06/2019 2:48 AM PST) + + + + + + | Component | Value | Ref Range | Performed | Pathologist | | | | | At | Signature | + + + + + + | Magnesium | 1.4 (L)Comment: Testing | 1.7 - 2.4 mg/dL | [facility] | | | | performed at [facility], [address] | | LABORATORY | | | | [address], | | | | | | [place] [address] | | | | + + + + + + + + | Specimen | + + | Blood | + + + + + + + | Performing | Address | City/State/Zipcode | Phone Number | | Organization | | | | + + + + + | [facility] | [address] | [place] [address] | [phone] | + + + + + Comprehensive [...] | | | | | performed at [facility], [address] | | | | | [address], | | | | | | [place] [address] | | | | + + + + + + + + | Specimen | + + | Blood | + + + + + + + | Performing | Address | City/State/Zipcode | Phone Number | | Organization | | | | + + + + + | [facility] | [address] | [place] [address] | [phone] | + + + + + CBC [...] | | | | | | at [facility] [place];[address];[place] [address] | | | | | |NORMAL PLT MORPH | | | | | |Testing performed at [facility] [place];[address] [address];[place] [address] | | | | | | | | | | + + + + + + + + | Specimen | + + | Blood | + + + + + + + | Performing | Address | City/State/Zipcode | Phone Number | | Organization | | | | + + + + + | [facility] | [address] | [place] [address] | [phone] | + + + + + Protime INR (04/06/2019 2:48 AM PST) + + + + + + | Component | Value | Ref Range | Performed | Pathologist | | | | | At | Signature | + + + + + + | INR | 1.2Comment: REFERENCE | | [facility] | | | | RANGE:0.9 - [...] | | | | | performed at [facility] [place];[address] | | | [address] | [address];[place] | | | | | | [address] | | | | + + + + + + + + | Specimen | + + | Blood | + + + + + + + | Performing | Address | City/State/Zipcode | Phone Number | | Organization | | | | + + + + + | [facility] | [address] | [place] [address] | [phone] | + + + + + PTT (04/06/2019 2:48 AM PST) + + + + + + | Component | Value | Ref Range | Performed | Pathologist | | | | | At | Signature | + + + + + + | PTT | 34 (H)Comment: Testing | 23 - 32 seconds | [facility] | | | | performed at [facility] [place];[address] | | LABORATORY | | | | Kiara Jaramillo;[place] | | | | | | [address] | | | | + + + + + + + + | Specimen | + + | Blood | + + + + + + + | Performing | Address | City/State/Zipcode | Phone Number | | Organization | | | | + + + + + | [facility] | [address] | [place] [address] | [phone] | + + + + + Troponin I (04/06/2019 2:48 AM PST) + + + + + + | Component | Value | Ref Range | Performed | Pathologist | | | | | At | Signature | + + + + + + | Troponin I | 0.198 (H)Comment: 0.04 | 0.00 - 0.04 | [facility] | | | | ng/mL or [...] at | | | | | | [facility] [place];[address] | | | | | | [address]vd;[place] [address] | | | | + + + + + + + + | Specimen | + + | Blood | + + + + + + + | Performing | Address | City/State/Zipcode | Phone Number | | Organization | | | | + + + + + | [facility] | [address] | [place] [address] | [phone] | + + + + + documented [...]
--- OUTSIDE RECORDS SUMMARY | ~2019-08-08 | XMS | Encounter Summary ---
Demographics + + + | Address | [address] | | | [place] [address] | + + + | Home Phone | | + + + | Preferred Language | Unknown | + + + | Marital Status | | + + + | Mu-Ism Affiliation | 1076 | + + + | Race | Unknown | + + + | Ethnic Group | Unknown | + + + Author + + + | Author | [facility] | | | and [place] | + + + | Organization | [facility] | | | and [place] | + + + | Address | Unknown | + + + | Phone | Unavailable | + + + Support + + + + + | Name | Relationship | Address | Phone | + + + + + | Jessica Shepard | ECON | [address] | | | | | [place] | | | | | [address] | | + + + + + | Bel Solis | ECON | Unknown | | + + + + + Care Team Providers + +------+ + | Care Hostess Name | Role | Phone | + +------+ + PCP | Unavailable | + +------+ + Encounter Details +--------+ + + + + | Date | Type | Department | Care Team | Description | +--------+ + + + + | 02/22/ | Hospital | [facility] | | | | 2000 | Encounter | MED CTR XRAY [address] | | | | | | [place] | | | | | | [place] [address] | | | | | | [phone] | | | +--------+ + + + [...]
--- OUTSIDE RECORDS SUMMARY | ~2019-08-08 | XMS | Encounter Summary ---
Demographics + + + | Address | [address] | | | [place] [address] | + + + | Home Phone [...] + | Jessica Shepard | ECON | [address] | | | | | [place] | | | | | [address] | | + + + + + | Bel Solis | ECON | Unknown | | + + + + + Care Team Providers + +------+ + | Care Finished Metal Repairer Name | Role | Phone | [...] + + | 05/14/ | Documentati | [facility] | Nimo [place], | Other (*Labs from | 2019 | on | INFECTIOUS DISEASE | Family Assessment Worker | [facility] | | | | [address] | | 05/11/2019 | | | | [facility] | | (CREATININE WITH | | | | [address] | | GFR)) | | | | [phone] | | | +--------+ + + + [...] as of this encounter Progress Nimo Harley, Family Assessment Worker - 05/14/2019 2:47 PM PST*Labs from [facility] (CREATININE WITH GFR) RECEIVED: 05/14/2019 Labs were abstracted into [facility] [employer] [facility] and sent to scan. Kaye CMA Tdocumented [...] | [address] | [place], [place] | [phone] | | [facility] | | [address] | | + + + + + [...]
--- OUTSIDE RECORDS SUMMARY | ~2019-08-08 | XMS | Encounter Summary ---
Demographics + + + | Address | [address] | | | [place] [address] | + + + | Home Phone [...] [facility] | | | and [place] | + + + | Address | Unknown | + + + | Phone | Unavailable | + + + Support + + + + + | Name | Relationship | Address | Phone | + + + + + | Jessica Shepard | ECON | [address] | | | | | [place] | | | | | [address] | | + + + + + | Bel Solis | ECON | Unknown | | + + + + + Care Team Providers + +------+ + | Care Fruit Bar Maker Name | Role | Phone | + +------+ + | Dian Lr NP | PCP | | + +------+ + Encounter Details +--------+ + + + + | Date | Type | Department | Care Team | Description | +--------+ + + + + | 05/14/ | Hospital | [facility] | Conversion | Pain | | 2017 | Encounter | CONVERSION DEP [address] | Transaction, | | | | | [address] | Provider Unknown | | | | | [place] | [phone] | | | | | [address] | | | | | | [phone] | | | +--------+ + + + [...]
--- OUTSIDE RECORDS SUMMARY | ~2019-08-08 | XMS | Encounter Summary ---
Demographics + + + | Address | [address] | | | [place] [address] | + + + | Home Phone | | + + + | Preferred Language | Unknown | + + + | Marital Status | | + + + | Evangelical Affiliation | 1076 | + + + | Race | Unknown | + + + | Ethnic Group | Unknown | + + + Author + + + | Author | [facility] | | | and [place] | + + + | Organization | [facility] | | | and [place] | + + + | Address | Unknown | + + + | Phone | Unavailable | + + + Support + + + + + | Name | Relationship | Address | Phone | + + + + + | Jessica Shepard | ECON | [address] | | | | | [place] | | | | | [address] | | + + + + + | Bel Solis | ECON | Unknown | | + + + + + Care Team Providers + +------+ + | Care Lacquer Mixer Name | Role | Phone | + +------+ + PCP | Unavailable | + +------+ + Encounter Details +--------+ + + + + | Date | Type | Department | Care Team | Description | +--------+ + + + + | 12/08/ | Hospital | [facility] | | | | 1999 | Encounter | MED CTR XRAY [address] | | | | | | [place] | | | | | | [place] [address] | | | | | | [phone] | | | +--------+ + + + [...]
--- OUTSIDE RECORDS SUMMARY | ~2019-08-08 | XMS | Encounter Summary ---
Demographics + + + | Address | [address] | | | [place] [address] | + + + | Home Phone [...] + | Jessica Shepard | ECON | [address] | | | | | [place] | | | | | [address] | | + + + + + | Bel Solis | ECON | Unknown | | + + + + + Care Team Providers + +------+ + | Care Presentation Specialist Name | Role | Phone | [...] + + | 05/14/ | Documentati | [facility] | Nimo [place], | Other (*Labs from | 2019 | on | INFECTIOUS DISEASE | High School Chemistry Teacher | [facility] | | | | [address] | | 05/11/2019 | | | | [facility] | | (CREATININE WITH | | | | [address] | | GFR)) | | | | [phone] | | | +--------+ + + + [...] as of this encounter Progress Nimo Harley, High School Chemistry Teacher - 05/14/2019 2:47 PM PST*Labs from [facility] (CREATININE WITH GFR) RECEIVED: 05/14/2019 Labs were abstracted into [employer] and sent to scan. Kaye CMA Tdocumented [...] [facility] | [place], [place] | [phone] | | [facility] | | [address] | | + + + + + [...]
--- OUTSIDE RECORDS SUMMARY | ~2019-08-08 | XMS | Encounter Summary ---
Demographics + + + | Address | [address] | | | [place] [address] | + + + | Home Phone | | + + + | Preferred Language | Unknown | + + + | Marital Status | | + + + | Religion Affiliation | 1076 | + + + [...] + | Jessica Shepard | ECON | [address] | | | | | [place] | | | | | [address] | | + + + + + | Bel Solis | ECON | Unknown | | + + + + + Care Team Providers + +------+ + | Care Speech Pathology Teacher Name | Role | Phone | + +------+ + | Jamar Manuel MD | PCP | | + +------+ + Encounter Details +--------+ + + + + | Date | Type | Department | Care Team | Description | +--------+ + + + + | 04/06/ | Hospital | [facility] | Jagdish Jimenez DO | Insulin dependent | | 2020 - | Encounter | [facility] | [address] | diabetes mellitus | | | | [address] | [place] [address] | ([facility]LY [facility]) (Primary Dx); | | 04/21/ | | [place], [place] | [phone] | Peripheral vascular | | 2020 | | [address] | | disease ([facility]); Other | | | | [phone] | Ady Yin MD | osteomyelitis of | | | | | [address] | right foot ([facility]); | | | | | [place] [address] | Essential | | | | | [phone] | hypertension; Acute | | | | | | left hemiparesis | | | | | Grover Charles MD | ([facility]); Other | | | | | [address] | osteomyelitis of | | | | | [place] [address] | right foot ([facility]); | | | | | [phone] | Chronic | | | | | | osteomyelitis ([facility]); | | | | | Scooter Davies MD | Acute osteomyelitis | | | | | [address] | of right calcaneus | | | | | [place] | ([facility]); Osteomyelitis | | | | | [address] | of metatarsal | | | | | | ([facility]); 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 The patient was admitted to regular medical floor and started on optimal medical management . On-call pharmacy retail support specialist (Dr. Ruelas) recommended continued medical management. Patient [...] per chan artery bypass surgery (04/18 Dr. oRbbins). The patient was maintained on aspirin and sta tin. The patient's hospital stay was also complicated by gross hematic area requiring CBI a nd urology consultation with noted improvement. The patient's elevated troponin on admiss ion were presumed to be secondary to demand ischemia. Stress test performed on 04/16 demon strated inferior defect with partial improvement at rest sewing pattern layout technician was i nformed by hospitalist colleague recommended [...] their primary care provider within 1 w inupiat after discharge, follow-up with ID in 2 weeks after discharge, follow-up with vascular s minnie as per their recommendations or otherwise within 2 weeks after discharge. The patien t will need to follow-up with his outpatient pharmacy retail support specialist within 1 to 2 weeks after discharg [...] Results Results Reviewed. Discharge Information: Follow up: [address] [address] Bhanu Seaman PA-C [address] [place] [id number] In 2 weeks Jamar Manuel MD [place] [address] Schedule an appointment as soon as possible for a visit in 1 week Hero Gaston MD [address] [facility] [id number] Schedule an appointment as soon as possible for a visit in 2 weeks Post hospital discharge follow-up Dr. New Ruelas [address] [facility] [id number] Schedule an appointment as soon as possible [...] numbness Complications from anesthesia Date Last Reviewed: 08/20/201519996262-1487 [employer]. [address] [place] [address], [place] [address]. All righ ts reserved. This information is [...] Wakefield PA-C - 04/21/2019 8:21 AM PST [facility] Service: Vascular Surgery Progress Note SUBJECTIVE Patient Summary: 74 y.o. man with complex medical issues and LE ischemic ulcers, he wa s recently admitted to the [facility] from 03/28/19 to 04/04/19 where he was treated/ diagnosed with systolic heart failure, type 2 MA/NSTEMI, SHAE, ARF. O2 desaturation brought him from SNF to [facility] and current admission today with [...] Holliday RN - 04/20/2019 4:40 PM PST [facility] Service: Wound Care Follow Up [...] Primary Wound Type: Diabetic Ulcer Side: Left [place] ation: lateral Location: foot Wound Subtype: ulceration, [...] M D - 04/20/2019 2:16 PM PST [facility] Service: Hospitalist Progress Note Pt: [...] hematuria. Recent history notable for admit to [facility] from 03/28/19 to 04/04/2019 for CHF exacerbation with eventual dischar ge to [facility]. He then re-presented to same hospital [...] encounter as of 01/31/20-14:16 IMAGING: Reviewed in [facility], no new results. PROBLEM LIST Principal [...] Received 8 days of IV antibiotics at [facility] discharged home on with augmentin, now readmitted on 04/06 at [facility] and started on rocephin after sending 2 [...] SQH Code status: Full Dispo: back to [facility] pending recovery from vascular bypass surgery (okay to go [facility] vascular surgery perspective), final ID recs, tentatively [...] therapy as indicated. Thank You, Rosendo SquiresD, [facility] 04/20/19 1:52 PM Nandini Sánchez se, MD - 04/20/2019 8:56 AM PST [facility] Service: Infectious Diseases Progress Note [...] Component Value Units Date/Time Culture, Wound, Superficial [[id number]] (Abnormal) (Susceptibility) Collected: 04/06/19 1546 Order Status: Completed Lab Status: Final result Updated: 04/11/19 5028 Specimen: Body Fluid from Heel, Right Special Requests LT FOOT Special Requests Testing performed at [facility];[address] [place] [address];[place] [address] RESULT -- 1+ ENTEROCOCCUS FAECALIS Aminoglycosides (except for high-level resistance testing), cephalosporins, clindamycin, an d trimethoprim-sulfamethoxazole may appear active in vitro but they are not effective clinic ally. RESULT -- 1+ ENTEROBACTER CLOACAE COMPLEX RESULT -- 1+ METHICILLIN RESISTANT S. AUREUS (MRSA) Susceptibility Enterococcus faecalis (1) Antibiotic Interpretation Microscan Method Status Ampicillin Sensitive SUSCEPTIBLE JESSICA Final Penicillin G Sensitive SUSCEPTIBLE JESISCA Final Gent Synergy Resistant RESISTANT JESSICA Final [...] Sensitive SUSCEPTIBLE JESSICA Final Testing performed at [facility], [address] [place] [address] Culture, Wound, Superficial [[id number]] Collected: 04/06/19 1546 Order Status: Completed Lab Status: Final result Updated: 04/08/19 0937 Specimen: Body Fluid from Heel, Right Special Requests RIGHT FOOT Special Requests Testing performed at [facility];[address] [place] [address] RESULT -- 1+ NORMAL SKIN CELSA ISOLATED RESULT NO FURTHER WORKUP RESULT Testing performed at [facility], [address] [place] [address] Comment: Testing performed at [facility], [address] [place] [address] Microbiology Results (72 hrs) No results found [...] assisting with dosing and monitorization. Discussed with caser up regarding OPAT. Discussed with caser up regarding discharge planning. Dr. Dolan will take over ID service tomorrow. Please call if questions. Hero Richardson MD, MPH Infectious Diseases 04/20/19 heila Cabrera RN - 04/19/2019 7:20 PM PSTEnd of shift chart check complete. Sheila Cabrera RN unshine Love, [facility] - 04/19/2019 3:23 PM PSTFormatting of [...] Shaver MD - 04/19/2019 2:46 PM PST [facility] Service: Hospitalist Progress Note Pt: [...] hematuria. Recent history notable for admit to [facility] from 03/28/19 to 04/04/2019 for CHF exacerbation with eventual dischar ge to [facility]. He then re-presented to same hospital [...] Received 8 days of IV antibiotics at [facility] discharged home on with augmentin, now readmitted on 04/06 at [facility] and started on rocephin after sending 2 [...] SQH Code status: Full Dispo: back to [facility] pending recovery from vascular bypass surgery, final ID recs , tentatively planning for ~04/21 Grover Charles MD 2:46 PM 04/19/2019 Portions of this chart may have been copied from previous notes for continuity of care purp ose Hero Sánchez MD - 04/19/2019 9:53 AM PSTFormatting of this note might be different from the [facility] Service: Infectious Diseases Progress Note [...] Component Value Units Date/Time Culture, Wound, Superficial [[id number]] (Abnormal) (Susceptibility) Collected: 04/06/191545 Order Status: Completed Lab Status: Final result Updated: 04/11/1928 Specimen: Body Fluid from Heel, Right Special Requests LT FOOT Special Requests Testing performed at [facility];[address] [place] [address] RESULT -- 1+ ENTEROCOCCUS FAECALIS Aminoglycosides (except [...] Sensitive SUSCEPTIBLE JESSICA Final Testing performed at [facility], [address] [place] [address] Culture, Wound, Superficial [[id number]] Collected: 04/06/191545 Order Status: Completed Lab Status: Final result Updated: 04/08/1937 Specimen: Body Fluid from Heel, Right Special Requests RIGHT FOOT Special Requests Testing performed at [facility];[address] [place] [address] RESULT -- 1+ NORMAL SKIN CELSA ISOLATED RESULT NO FURTHER WORKUP RESULT Testing performed at [facility], [address] [place] [address] Comment: Testing performed at [facility], [address] [place] [address] Culture, Blood [[id number]] Collected: 04/06/19337 Order Status: Completed Lab Status: Final result Updated: 04/12/1952 Specimen: Peripheral Blood Special Requests R WRIST Special Requests Testing performed at [facility];[address] [place] [address] RESULT NO GROWTH 6 DAYS RESULT Testing performed at [facility], [address] [place] [address] Comment: Testing performed at [facility], [address] [place] [address] Culture, Blood [[id number]] Collected: 04/06/19330 Order Status: Completed Lab Status: Final result Updated: 04/12/1952 Specimen: Peripheral Blood Special Requests L WRIST Special Requests Testing performed at [facility];[address] [place] [address] RESULT NO GROWTH 6 DAYS RESULT Testing performed at [facility], [address] [place] [address] Comment: Testing performed at [facility], [address] [place] [address] Microbiology Results (72 hrs) No results found [...] might be different from the o riginal. [facility] Service: Vascular Surgery Progress Note SUBJECTIVE Patient Summary: 74 y.o. man with complex medical issues and LE ischemic ulcers, he wa s recently admitted to the [facility] from 03/28/19 to 04/04/19 where he was treated/ diagnosed with systolic heart failure, type 2 MA/NSTEMI, SHAE, ARF. O2 desaturation brought him from SNF to [facility] and current admission today with [...] Rachel Altamirano RN - 04/19/2019 5:46 AM [id number] left foot dressing change complete per order. [...] Grover Shaver MD - 4:52 PM PST [facility] Service: Hospitalist Progress Note Pt: Reagan Shepard AGE/SEX: 74 y.o. male ROOM: [facility] OR INTRA OP POOL/[facility]* : 1945 PCP: Jamar Manuel MD ADMIT DATE: 04/06/2019 TODAY'S DATE: 04/18/2019 Hospital Day/Hospital Course: LOS: 12 days Mr. Shepard is a 74-year-old gentleman with a history of bilateral nonhealing diabetic trisha t ulcers, and history of TBI, stroke, insulin dependent DM, who presents with CHF exacerbati on with hospital course complicated by gross hematuria. Recent history notable for admit to [facility] from 03/28/19 to 04/04/2019 for CHF exacerbation with eventual dischar ge to [facility]. He then re-presented to same hospital [...] the last 72 hours. IMAGING: Reviewed in [facility], no new results. PROBLEM LIST Principal Problem: [...] Received 8 days of IV antibiotics at [facility] discharged home on with augmentin, now readmitted on 04/06 at [facility] and started on rocephin after sending 2 [...] SQH Code status: Full Dispo: back to [facility] pending cardiac evaluation/optimization, vascular bypass donna [...] as indicated. Thank You, Sunshine Love, PharmD, [facility] 04/18/19 2:45 PM Syed López PTA [...] might be different from t kevin original. [facility] Service: Infectious Diseases Progress Note [...] Component Value Units Date/Time Culture, Wound, Superficial [[id number]] (Abnormal) (Susceptibility) Collected: 04/06/191545 Order Status: Completed Lab Status: Final result Updated: 04/11/1928 Specimen: Body Fluid from Heel, Right Special Requests LT FOOT Special Requests Testing performed at [facility];[address] [place] [address] RESULT -- 1+ ENTEROCOCCUS FAECALIS Aminoglycosides (except [...] Sensitive SUSCEPTIBLE JESSICA Final Testing performed at [facility], [address] [place] [address] Culture, Wound, Superficial [[id number]] Collected: 04/06/191545 Order Status: Completed Lab Status: Final result Updated: 04/08/19 0937 Specimen: Body Fluid from Heel, Right Special Requests RIGHT FOOT Special Requests Testing performed at [facility];[address] [place] [address] RESULT -- 1+ NORMAL SKIN CELSA ISOLATED RESULT NO FURTHER WORKUP RESULT Testing performed at [facility], [address] [place] [address] Comment: Testing performed at [facility], [address] [place] [address] Culture, Blood [[id number]] Collected: 04/06/19337 Order Status: Completed Lab Status: Final result Updated: 04/12/1952 Specimen: Peripheral Blood Special Requests R WRIST Special Requests Testing performed at [facility];[address] [place] [address] RESULT NO GROWTH 6 DAYS RESULT Testing performed at [facility], [address] [place] [address] Comment: Testing performed at [facility], [address] [place] [address] 32027 Culture, Blood [[id number]] Collected: 04/06/19330 Order Status: Completed Lab Status: Final result Updated: 04/12/1952 Specimen: Peripheral Blood Special Requests L WRIST Special Requests Testing performed at [facility];[address] [place] [address] RESULT NO GROWTH 6 DAYS RESULT Testing performed at [facility], [address] [place] [address] Comment: Testing performed at [facility], [address] [place] [address]24 Microbiology Results (72 hrs) No results found [...] might be different from the o riginal. [facility] Service: Vascular Surgery Progress Note SUBJECTIVE Patient Summary: 74 y.o. man with complex medical issues and LE ischemic ulcers, he wa s recently admitted to the [facility] from 03/28/19 to 04/04/19 where he was treated/ diagnosed with systolic heart failure, type 2 MA/NSTEMI, SHAE, ARF. O2 desaturation brought him from SNF to [facility] and current admission today with [...] of feet - [facility]. Cryovein is in house [...] of shift chart check review Sunshine Chen, [facility] - 04/17/2019 1:38 PM PST Vancomycin [...] as indicated. Thank You, Sunshine Love, PharmD, [facility] 04/17/19 1:38 PM Grover Shaver MD - 04/17/2019 12:25 PM PST [facility] Service: Hospitalist Progress Note Pt: Reagan Shepard AGE/SEX: 74 y.o. male ROOM: [id number] : 1945 PCP: Jamar Manuel MD ADMIT DATE: 04/06/2019 TODAY'S DATE: 04/17/2019 Hospital Day/Hospital Course: LOS: 11 days Mr. Shepard is a 74-year-old gentleman with a history of bilateral nonhealing diabetic trisha t ulcers, and history of TBI, stroke, insulin dependent DM, who presents with CHF exacerbati on with hospital course complicated by gross hematuria. Recent history notable for admit to [facility] from 03/28/19 to 04/04/2019 for CHF exacerbation with eventual dischar ge to [facility]. He then re-presented to same hospital [...] Received 8 days of IV antibiotics at [facility] discharged home on with augmentin, now readmitted on 04/06 at [facility] and started on rocephin after sending 2 [...] SQH Code status: Full Dispo: back to [facility] pending cardiac evaluation/optimization, vascular bypass donna wero, final ID recs, tentatively planning for ~04/21 Grover Charles MD 12:25 PM 04/17/2019 Portions of this chart may have been copied from previous notes for continuity of care purp ose Rico Modi MD - 11:19 AM PST [facility] Service: Cardiology/[facility] Interventional cardiology note RE: Reagan [...] minimal reversib ility 2. Recent non-Q wave MA 3. Severe peripheral vascular disease 4. Diabetes [...] might be different from the heidi razo. [facility] Service: Infectious Diseases Progress Note [...] Component Value Units Date/Time Culture, Wound, Superficial [[id number]] (Abnormal) (Susceptibility) Collected: 04/06/191545 Order Status: Completed Lab Status: Final result Updated: 04/11/1928 Specimen: Body Fluid from Heel, Right Special Requests LT FOOT Special Requests Testing performed at [facility];[address] [place] [address];[place] [address] RESULT -- 1+ ENTEROCOCCUS FAECALIS Aminoglycosides (except [...] Sensitive SUSCEPTIBLE JESSICA Final Testing performed at [facility], [address] [place] [address], [place] [address] Culture, Wound, Superficial [[id number]] Collected: 04/06/191545 Order Status: Completed Lab Status: Final result Updated: 04/08/19 0937 Specimen: Body Fluid from Heel, Right Special Requests RIGHT FOOT Special Requests Testing performed at [facility];[address] [place] [address];[place] [address] RESULT -- 1+ NORMAL SKIN CELSA ISOLATED RESULT NO FURTHER WORKUP RESULT Testing performed at [facility], [address] [place] [address] Comment: Testing performed at [facility], [address] [place] [address] Culture, Blood [[id number]] Collected: 04/06/19337 Order Status: Completed Lab Status: Final result Updated: 04/12/19651 Specimen: Peripheral Blood Special Requests R WRIST Special Requests Testing performed at [facility];[address] [place] [address] RESULT NO GROWTH 6 DAYS RESULT Testing performed at [facility], [address] [place] [address] Comment: Testing performed at [facility], [address] [place] [address]45 Culture, Blood [[id number]] Collected: 04/06/19330 Order Status: Completed Lab Status: Final result Updated: 04/12/1952 Specimen: Peripheral Blood Special Requests L WRIST Special Requests Testing performed at [facility];[address] [place] [address] RESULT NO GROWTH 6 DAYS RESULT Testing performed at [facility], [address] [place] [address] Comment: Testing performed at [facility], [address] [place] [address] 32188 Microbiology Results (72 hrs) No results found [...] might be different from the o riginal. [facility] Service: Vascular Surgery Progress Note SUBJECTIVE Patient Summary: 74 y.o. man with complex medical issues and LE ischemic ulcers, he wa s recently admitted to the [facility] from 03/28/19 to 04/04/19 where he was treated/ diagnosed with systolic heart failure, type 2 MA/NSTEMI, SHAE, ARF. O2 desaturation brought him from SNF to [facility] and current admission today with CHF and +tropo oliiva. He is on IV heparin for his [...] Sánchez MD - 04/16/2019 6:49 PM PST [facility] Service: Infectious Diseases Progress Note [...] Component Value Units Date/Time Culture, Wound, Superficial [[id number]] (Abnormal) (Susceptibility) Collected: 04/06/19 1546 Order Status: Completed Lab Status: Final result Updated: 04/11/19 0728 Specimen: Body Fluid from Heel, Right Special Requests LT FOOT Special Requests Testing performed at [facility];[address] [place] [address];[place] [address] RESULT -- 1+ ENTEROCOCCUS FAECALIS Aminoglycosides (except [...] Resistant RESISTANT JESSICA Final Gentamicin Sensitive SUSCEPTIBLE JESSCIA Final Levofloxacin Resistant RESISTANT JESSICA Final Moxifloxacin Resistant RESISTANT JESSICA Final Oxacillin Resistant RESISTANT JESSICA Final Tetracycline Resistant RESISTANT JESSICA Final Trimethoprim + Sulfamethoxazole Resistant RESISTANT JESSICA Final Vancomycin Sensitive SUSCEPTIBLE JESSICA Final Testing performed at [facility], [address] [place] [address]47 Culture, Wound, Superficial [[id number]] Collected: 04/06/19 1546 Order Status: Completed Lab Status: Final result Updated: 04/08/1937 Specimen: Body Fluid from Heel, Right Special Requests RIGHT FOOT Special Requests Testing performed at [facility];[address] [place] [address] RESULT -- 1+ NORMAL SKIN CELSA ISOLATED RESULT NO FURTHER WORKUP RESULT Testing performed at [facility], [address] [place] [address] Comment: Testing performed at [facility], [address] [place] [address]190 Culture, Blood [[id number]] Collected: 04/06/19337 Order Status: Completed Lab Status: Final result Updated: 04/12/1952 Specimen: Peripheral Blood Special Requests R WRIST Special Requests Testing performed at [facility];[address] [place] [address]70 RESULT NO GROWTH 6 DAYS RESULT Testing performed at [facility], [address] [place] [address] Comment: Testing performed at [facility], [address] [place] [address] Culture, Blood [[id number]] Collected: 04/06/19 0331 Order Status: Completed Lab Status: Final result Updated: 04/12/19 0652 Specimen: Peripheral Blood Special Requests L WRIST Special Requests Testing performed at [facility];[address] [place] [address];[place] [address] RESULT NO GROWTH 6 DAYS RESULT Testing performed at [facility], [address] [place] [address] Comment: Testing performed at [facility], [address] [facility], [place] [address] Microbiology Results (72 hrs) No results found [...] note might be different from the original. [facility] Service: Hospitalist Progress Note Pt: [...] hematuria. Recent history notable for admit to [facility] from 03/28/19 to 04/04/2019 for CHF exacerbation with eventual dischar ge to [facility]. He then re-presented to same hospital [...] Received 8 days of IV antibiotics at [facility] discharged home on with augmentin, now readmitted on 04/06 at [facility] and started on rocephin after sending 2 [...] SQH Code status: Full Dispo: back to [facility] pending cardiac evaluation/optimization, vascular bypass donna [...] Rodrigez RD 04/16/2019 3:21 PM Sunshine Chen, [facility] - 04/16/2019 12:18 PM PST Vancomycin [...] Patient encouraged to discuss medication changes with pharmacy retail support specialist ragini stanley to stopping medications or making any changes. Patient's questions answered. Heart Fail ure Hot Line number provided to patient. Face to face time was spent with patient providing counseling and education for congestive heart failure. Bhanu Wakefield P A-C - 04/16/2019 8:43 AM PST [facility] Service: Vascular Surgery Progress Note SUBJECTIVE Patient Summary: 74 y.o. man with complex medical issues and LE ischemic ulcers, he wa s recently admitted to the [facility] from 03/28/19 to 04/04/19 where he was treated/ diagnosed with systolic heart failure, type 2 MA/NSTEMI, SHAE, ARF. O2 desaturation brought him from SNF to [facility] and current admission today with [...] MD - 04/15/2019 1 2:48 PM PST [facility] Service: Hospitalist Progress Note Pt: Reagan Shepard AGE/SEX: 74 y.o. male ROOM: [address] [place] [address] : 1945 PCP: Jamar Manuel MD ADMIT DATE: 04/06/2019 TODAY'S DATE: 04/15/2019 Hospital Day/Hospital Course: LOS: 9 days Mr. Shepard is a 74-year-old gentleman with a history of bilateral nonhealing diabetic trisha t ulcers, and history of TBI, stroke, insulin dependent DM, who presents with CHF exacerbati on with hospital course complicated by gross hematuria. Recent history notable for admit to [facility] from 03/28/19 to 04/04/2019 for CHF exacerbation with eventual dischar ge to [facility]. He then re-presented to same hospital [...] 04/14/19 0629 BNP 587.58* IMAGING: Reviewed in [facility], no new results. PROBLEM LIST Principal [...] Received 8 days of IV antibiotics at [facility] discharged home on with augmentin, now readmitted on 04/06 at [facility] and started on rocephin after sending 2 [...] SQH Code status: Full Dispo: back to [facility] pending cardiac evaluation/optimization, vascular bypass donna wero, final ID recs, likely 4-5 more days in hospital Grover Charles MD 12:48 PM 04/15/2019 Portions of this chart may have been copied from previous notes for continuity of care purp ose roctor, Sheila Brown [facility] - 04/15/2019 10:55 AM PST Vancomycin [...] as indicated. Thank You, Sheila Ahuja, PharmD, [facility] 04/15/2019, 10:41 AM Simba Fenton MD [...] might be differ ent from the original. [facility] Service: Infectious Diseases Progress Note [...] Component Value Units Date/Time Culture, Wound, Superficial [[id number]] (Abnormal) (Susceptibility) Collected: 04/06/19 1546 Order Status: Completed Lab Status: Final result Updated: 04/11/19 7936 Specimen: Body Fluid from Heel, Right Special Requests LT FOOT Special Requests Testing performed at [facility];[address] [place] [address];[place] [address] RESULT -- 1+ ENTEROCOCCUS FAECALIS Aminoglycosides (except [...] Sensitive SUSCEPTIBLE JESSICA Final Testing performed at [facility], [address] [place] [address] Culture, Wound, Superficial [[id number]] Collected: 04/06/19 1546 Order Status: Completed Lab Status: Final result Updated: 04/08/19 0937 Specimen: Body Fluid from Heel, Right Special Requests RIGHT FOOT Special Requests Testing performed at [facility];[address] [place] [address] RESULT -- 1+ NORMAL SKIN CELSA ISOLATED RESULT NO FURTHER WORKUP RESULT Testing performed at [facility], [address] [place] [address] Comment: Testing performed at [facility], [address] [place] [address] Culture, Blood [[id number]] Collected: 04/06/198 Order Status: Completed Lab Status: Final result Updated: 04/12/19 0652 Specimen: Peripheral Blood Special Requests R WRIST Special Requests Testing performed at [facility];[address] [place] [address] 90329 RESULT NO GROWTH 6 DAYS RESULT Testing performed at [facility], [address] [place] [address] Comment: Testing performed at [facility], [address] [place] [address] Culture, Blood [[id number]] Collected: 04/06/19 033 Order Status: Completed Lab Status: Final result Updated: 04/12/19 0652 Specimen: Peripheral Blood Special Requests L WRIST Special Requests Testing performed at [facility];[address] [facility];[place] [address] RESULT NO GROWTH 6 DAYS RESULT Testing performed at [facility], [address] [place] [address] Comment: Testing performed at [facility], [address] [place] [address] Microbiology Results (72 hrs) No results found [...] note might be different from the origin [facility] Service: Hospitalist Progress Note Pt: Reagan Shepard AGE/SEX: 74 y.o. male ROOM: [facility]/4452- : 1945 PCP: Jamar Manuel MD ADMIT DATE: 04/06/2019 TODAY'S DATE: 04/14/2019 Hospital Day/Hospital Course: LOS: 8 days Mr. Shepard is a 74-year-old gentleman with a history of bilateral nonhealing diabetic trisha t ulcers, and history of TBI, stroke, insulin dependent DM, who presents with CHF exacerbati on with hospital course complicated by gross hematuria. Recent history notable for admit to [facility] from 03/28/19 to 04/04/2019 for CHF exacerbation with eventual dischar ge to [facility]. He then re-presented to same hospital [...] Received 8 days of IV antibiotics at [facility] discharged home on with augmentin, now readmitted on 04/06 at [facility] and started on rocephin after sending 2 [...] date with age appropriate cancer screening PPx: [facility] Code status: Full Dispo: back to [facility] pending improvement in gross hematuria, CHF exacerbation, re peat angiogram, final ID recs, likely 4-5 more days in hospital Grover Charles MD 1:29 PM 04/14/2019 Portions of this chart may have been copied from previous notes for continuity of care purp ose Lyric Molina RN - 04/14/2019 1:27 PM PST [facility] Service: Wound Care Follow Up [...] any additional questions. Lyric Mclain RN, CMSRN, [facility] Inpatient Wound Ostomy Care [phone] 04/14/2019 1:29 PM Dheeraj Barraza, PT - [...] far vs stable.Vandana Luciano RN Meghan Alejandre [facility] - 04/14/2019 6:31 AM PST Vancomycin [...] Shaver MD - 04/13/2019 4:02 PM PST [facility] Service: Hospitalist Progress Note Pt: [...] hematuria. Recent history notable for admit to [facility] from 03/28/19 to 04/04/2019 for CHF exacerbation with eventual dischar ge to [facility]. He then re-presented to same hospital [...] Received 8 days of IV antibiotics at [facility] discharged home on with augmentin, now readmitted on 04/06 at [facility] and started on rocephin after sending 2 [...] date with age appropriate cancer screening PPx: [facility] Code status: Full Dispo: back to [facility] pending improvement in gross hematuria, CHF [...] 113.3 kg Adjusted body weight: 89.1 kg Dunbar body weight: 73 kg Current Vital Signs: [...] patient being away at a [facility]. Drawing a level once the patient [...] as indicated. Thank You, Sunshine Love, PharmD, [facility] 04/13/19 3:20 PM Nandini Sánchez se, MD - 04/13/2019 10:54 AM PST [facility] Service: Infectious Diseases Progress Note [...] Component Value Units Date/Time Culture, Wound, Superficial [[id number]] (Abnormal) (Susceptibility) Collected: 04/06/19 1546 Order Status: Completed Lab Status: Final result Updated: 04/11/1928 Specimen: Body Fluid from Heel, Right Special Requests LT FOOT Special Requests Testing performed at [facility];[address] [place] [address];[place] [address] RESULT -- 1+ ENTEROCOCCUS FAECALIS Aminoglycosides (except [...] Sensitive SUSCEPTIBLE JESSICA Final Testing performed at [facility], [address] [place] [address], [place] [address] Culture, Wound, Superficial [[id number]] Collected: 04/06/19 1546 Order Status: Completed Lab Status: Final result Updated: 04/08/19 0937 Specimen: Body Fluid from Heel, Right Special Requests RIGHT FOOT Special Requests Testing performed at [facility];[address] [place] [address] RESULT -- 1+ NORMAL SKIN CELSA ISOLATED RESULT NO FURTHER WORKUP RESULT Testing performed at [facility], [address] [place] [address] Comment: Testing performed at [facility], [address] [place] [address] Culture, Blood [[id number]] Collected: 04/06/19 0338 Order Status: Completed Lab Status: Final result Updated: 04/12/19 0652 Specimen: Peripheral Blood Special Requests R WRIST Special Requests Testing performed at [facility];[address] [place] [address] RESULT NO GROWTH 6 DAYS RESULT Testing performed at [facility], [address] [place] [address] Comment: Testing performed at [facility], [address] [place] [address]93 Culture, Blood [[id number]] Collected: 04/06/19 0331 Order Status: Completed Lab Status: Final result Updated: 04/12/19 0652 Specimen: Peripheral Blood Special Requests L WRIST Special Requests Testing performed at [facility];[address] [place] [address] RESULT NO GROWTH 6 DAYS RESULT Testing performed at [facility], [address] [place] [address] Comment: Testing performed at [facility], [address] [place] [address] Microbiology Results (72 hrs) No results found [...] Hero Richardson MD, MPH Infectious Diseases 04/13/19 Ahsu, Yoel car PA-C - 04/13/2019 7:47 AM PSTFormatting of this note might be different from the o riginal. [facility] Service: Vascular Surgery Progress Note SUBJECTIVE Patient Summary: 74 y.o. man with complex medical issues and LE ischemic ulcers, he wa s recently admitted to the [facility] from 03/28/19 to 04/04/19 where he was treated/ diagnosed with systolic heart failure, type 2 MA/NSTEMI, SHAE, ARF. O2 desaturation brought him from SNF to [facility] and current admission today with [...] risks. Signed consent obtained. Will proceed to [facility] Cold Type Artist today for right leg angiogram. Moderate Sedation [...] might be different from the o riginal. [facility] Service: Infectious Diseases Progress Note [...] Component Value Units Date/Time Culture, Wound, Superficial [[id number]] (Abnormal) (Susceptibility) Collected: 04/06/19 1546 Order Status: Completed Lab Status: Final result Updated: 04/11/19 0728 Specimen: Body Fluid from Heel, Right Special Requests LT FOOT Special Requests Testing performed at [facility];[address] [place] [address];[place] [address] RESULT -- 1+ ENTEROCOCCUS FAECALIS Aminoglycosides (except [...] Resistant RESISTANT JESSICA Final Gentamicin Sensitive SUSCEPTIBLE JSESICA Final Levofloxacin Resistant RESISTANT JESSICA Final Moxifloxacin Resistant RESISTANT JESSICA Final Oxacillin Resistant RESISTANT JESSICA Final Tetracycline Resistant RESISTANT JESSICA Final Trimethoprim + Sulfamethoxazole Resistant RESISTANT JESSICA Final Vancomycin Sensitive SUSCEPTIBLE JESSICA Final Testing performed at [facility], [address] [place] [address] Culture, Wound, Superficial [[id number]] Collected: 04/06/19 1546 Order Status: Completed Lab Status: Final result Updated: 04/08/1937 Specimen: Body Fluid from Heel, Right Special Requests RIGHT FOOT Special Requests Testing performed at [facility];[address] [place] [address] RESULT -- 1+ NORMAL SKIN CELSA ISOLATED RESULT NO FURTHER WORKUP RESULT Testing performed at [facility], [address] [place] [address] Comment: Testing performed at [facility], [address] [place] [address]20 Culture, Blood [[id number]] Collected: 04/06/19337 Order Status: Completed Lab Status: Final result Updated: 04/12/1952 Specimen: Peripheral Blood Special Requests R WRIST Special Requests Testing performed at [facility];[address] [place] [address] RESULT NO GROWTH 6 DAYS RESULT Testing performed at [facility], [address] [place] [address] Comment: Testing performed at [facility], [address] [place] [address]16 Culture, Blood [[id number]] Collected: 04/06/19 0331 Order Status: Completed Lab Status: Final result Updated: 04/12/1952 Specimen: Peripheral Blood Special Requests L WRIST Special Requests Testing performed at [facility];[address] [place] [address]503 RESULT NO GROWTH 6 DAYS RESULT Testing performed at [facility], [address] [place] [address] Comment: Testing performed at [facility], [address] [place] [address] Microbiology Results (72 hrs) No results found [...] this note might be different from the [facility] Service: Hospitalist Progress Note Pt: Reagan [...] hematuria. Recent history notable for admit to [facility] from 03/28/19 to 04/04/2019 for CHF exacerbation with eventual dischar ge to [facility]. He then re-presented to same hospital [...] Received 8 days of IV antibiotics at [facility] discharged home on with augmentin, now readmitted on 04/06 at [facility] and started on rocephin after sending 2 [...] H Code status: Full Dispo: back to [facility] pending improvement in gross hematuria, CHF exacerbation, re peat angiogram, final ID recs, likely 4-5 more days in hospital Grover Charles MD 4:43 PM 04/12/2019 Portions of this chart may have been copied from previous notes for continuity of care purp ose Bhanu Wakefield PA-C - 04/12/2019 4:00 PM PST [facility] Service: Vascular Surgery Progress Note SUBJECTIVE Patient Summary: 74 y.o. man with complex medical issues and LE ischemic ulcers, he wa s recently admitted to the [facility] from 03/28/19 to 04/04/19 where he was treated/ diagnosed with systolic heart failure, type 2 MA/NSTEMI, SHAE, ARF. O2 desaturation brought him from SNF to [facility] and current admission today with [...] Bhanu Seaman PA-C Vascular Surgery unshine Love, [facility] - 04/12/2019 12:27 PM PST Vancomycin Dosing Per Pharmacy Subjective/Objective Reagan Shepard is a 74 y.o. 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 Additional antimicrobials: zosyn Quadriplegic/Paraplegic: no Diabetes: yes Baseline Serum Creatinine: 0.6 mg/dL Actual weight: 113.3 kg Adjusted body weight: 89.1 kg Dunbar body weight: 73 kg Current Vital Signs: [...] as indicated. Thank You, Sunshine Love, RosendoD, [facility] 04/12/19 3:27 PM Grover Shaver MD - 04/11/2019 5:06 PM PST [facility] Service: Hospitalist Progress Note Pt: [...] hematuria. Recent history notable for admit to [facility] from 03/28/19 to 04/04/2019 for CHF exacerbation with eventual dischar ge to [facility]. He then re-presented to same hospital [...] Received 8 days of IV antibiotics at [facility] discharged home on with augmentin, now readmitted on 04/06 at [facility] and started on rocephin after sending 2 [...] above) Code status: Full Dispo: back to [facility] pending improvement in gross hematuria and CHF exacerbation Grover Charles MD 5:06 PM 04/11/2019 Portions of this chart may have been copied from previous notes for continuity of care purp ose roctor, Sheila Brown [facility] - 04/11/2019 2:03 PM PST Vancomycin Dosing Per Pharmacy Subjective/Objective Reagan Shepard is a 74 y.o. 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 Additional antimicrobials: zosyn Quadriplegic/Paraplegic: no Diabetes: yes Baseline Serum Creatinine: 0.6 mg/dL Actual weight: 113.3 kg Adjusted body weight: 89.1 kg Dunbar body weight: 73 kg Current Vital Signs: [...] IV q12h (14 mg/kg/dose) Rationale: Based on [facility] dosing nomogram, current renal function, and desired [...] vancomycin therapy as indicated. Thank You, Sheila Ahjua RPH, 04/11/2019, 1:51 PM Hero Sánchez MD - 04/11/2019 10:09 AM PSTFormatting of this note might be different from stephanie brown original. [facility] Service: Infectious Diseases Progress Note [...] Component Value Units Date/Time Culture, Wound, Superficial [[id number]] (Abnormal) (Susceptibility) Collected: 04/06/191545 Order Status: Completed Lab Status: Final result Updated: 04/11/19 0728 Specimen: Body Fluid from Heel, Right Special Requests LT FOOT Special Requests Testing performed at [facility];[address] [place] [address] RESULT -- 1+ ENTEROCOCCUS FAECALIS Aminoglycosides (except [...] Sensitive SUSCEPTIBLE JESSICA Final Testing performed at [facility], [address] [place] [address]10 Culture, Wound, Superficial [[id number]] Collected: 04/06/191545 Order Status: Completed Lab Status: Final result Updated: 04/08/19 0937 Specimen: Body Fluid from Heel, Right Special Requests RIGHT FOOT Special Requests Testing performed at [facility];[address] [place] [address]160 RESULT -- 1+ NORMAL SKIN CELSA ISOLATED RESULT NO FURTHER WORKUP RESULT Testing performed at [facility], [address] [place] [address] Comment: Testing performed at [facility], [address] [place] [address]14 Culture, Blood [[id number]] Collected: 04/06/19337 Order Status: Completed Lab Status: Preliminary result Updated: 04/07/19812 Specimen: Peripheral Blood Special Requests R WRIST Special Requests Testing performed at [facility];[address] [place] [address] 94125 RESULT NO GROWTH AT THIS TIME RESULT Testing performed at [facility], [address] [place] [address] Comment: Testing performed at [facility], [address] [place] [address] 21432 Culture, Blood [[id number]] Collected: 04/06/19330 Order Status: Completed Lab Status: Preliminary result Updated: 04/07/19812 Specimen: Peripheral Blood Special Requests L WRIST Special Requests Testing performed at [facility];[address] [place] [address] 85090 RESULT NO GROWTH AT THIS TIME RESULT Testing performed at [facility], [address] [place] [address] 8[address]43 Comment: Testing performed at [facility], [address] [place] [address] Microbiology Results (72 hrs) No results found [...] Shaver MD - 04/10/2019 4:51 PM PST [facility] Service: Hospitalist Progress Note Pt: Reagan Shepard AGE/SEX: 74 y.o. male ROOM: [id number]- : 1945 PCP: Jamar Manuel MD ADMIT DATE: 04/06/2019 TODAY'S DATE: 04/10/2019 Hospital Day/Hospital Course: LOS: 4 days Mr. Shepard is a 74-year-old gentleman with a history of bilateral nonhealing diabetic trisha t ulcers, and history of TBI, stroke, insulin dependent DM, who presents with CHF exacerbati on with hospital course complicated by gross hematuria. Recent history notable for admit to [facility] from 03/28/19 to 04/04/2019 for CHF exacerbation with eventual dischar ge to [facility]. He then re-presented to same hospital [...] Received 8 days of IV antibiotics at [facility] discharged home on with augmentin, now readmitted on 04/06 at [facility] and started on rocephin after sending 2 [...] above) Code status: Full Dispo: back to [facility] pending improvement in gross hematuria and CHF exacerbation Grover Charles MD 4:51 PM 04/10/2019 Portions of this chart may have been copied from previous notes for continuity of care purp ose Hero Sánchez MD - 04/10/2019 2:27 PM PSTFormatting of this note might be different from the [facility]: Infectious Diseases Progress Note [...] Component Value Units Date/Time Culture, Wound, Superficial [[id number]] (Abnormal) (Susceptibility) Collected: 04/06/19 1546 Order Status: Completed Lab Status: Preliminary result Updated: 04/10/19 0930 Specimen: Body Fluid from Heel, Right Special Requests LT FOOT Special Requests Testing performed at [facility];[address] [place] [address] RESULT -- 1+ ENTEROCOCCUS FAECALIS Aminoglycosides (except for high-level resistance testing), cephalosporins, clindamycin, an d trimethoprim-sulfamethoxazole may appear active in vitro but they are not effective clinic ally. RESULT -- 1+ ENTEROBACTER CLOACAE COMPLEX RESULT -- 1+ STAPHYLOCOCCUS AUREUS RESULT SUSCEPTIBILITY TO FOLLOW RESULT Testing performed at [facility], [address] [place] [address]2475 Susceptibility Enterococcus faecalis (1) Antibiotic Interpretation Microscan [...] Sensitive SUSCEPTIBLE JESSICA Preliminary Testing performed at [facility], [address] [place] [address]34 Culture, Wound, Superficial [[id number]] Collected: 04/06/191545 Order Status: Completed Lab Status: Final result Updated: 04/08/19 0937 Specimen: Body Fluid from Heel, Right Special Requests RIGHT FOOT Special Requests Testing performed at [facility];[address] [place] [address] 6[address]31 RESULT -- 1+ NORMAL SKIN CELSA ISOLATED RESULT NO FURTHER WORKUP RESULT Testing performed at [facility], [address] [place] [address] Comment: Testing performed at [facility], [address] [place] [address] 54489 Culture, Blood [[id number]] Collected: 01/337 Order Status: Completed Lab Status: Preliminary result Updated: 04/07/19812 Specimen: Peripheral Blood Special Requests R WRIST Special Requests Testing performed at [facility];[address] [place] [address] 19640 RESULT NO GROWTH AT THIS TIME RESULT Testing performed at [facility], [address] [place] [address]15 Comment: Testing performed at [facility], [address] [place] [address] 73382 Culture, Blood [[id number]] Collected: 04/06/19330 Order Status: Completed Lab Status: Preliminary result Updated: 04/07/19812 Specimen: Peripheral Blood Special Requests L WRIST Special Requests Testing performed at [facility];[address] [place] [address] 94153 RESULT NO GROWTH AT THIS TIME RESULT Testing performed at [facility], [address] [place] [address]3680 Comment: Testing performed at [facility], [address] [place] [id number] Microbiology Results (72 hrs) No results found [...] might be different from the ramiro falcon [facility] Service: Urology Progress Note Hospital [...] lung volumes done for scoliosis. Signed by: Madsion Acosta, Ling Luis Sign Date/Time: 04/08/2019 9:32 [...] essential h ypertension, insulin-dependent diabetes, history of MA, GERD, ischemic stroke, diffuse signi ficant peripheral [...] Lujan MD - 04/09/2019 6:21 PM PST [facility] Service: Urology Progress Note Hospital [...] hypertension, hyperkalemia, history of GERD and non-STEMI MA, history of bacteremia, histo ry of stroke. [...] Color, UA STRAW Clarity, UA CLEAR Specific [place], Urine 1.006 1.002 - 1.030 Leukocyte esterase, [...] longstanding history of diabetes, hypertension, GERD, ac scammon bay left hemiparesis, essential hypertension and very advanced [...] might be different from the terry miller [facility] Service: Vascular Surgery Progress Note SUBJECTIVE Patient Summary: 74 y.o. man with complex medical issues and LE ischemic ulcers, he wa s recently admitted to the [facility] from 03/28/19 to 04/04/19 where he was treated/ diagnosed with systolic heart failure, type 2 MA/NSTEMI, SHAE, ARF. O2 desaturation brought him from SNF to [facility] and current admission today with [...] will have him scheduled for 04/12/2019 at [facility] Cold Type Artist for his first leg, then will plan [...] Hospitalist Progress Note Reagan Shepard 74 y.o. [id number] male Jamar Manuel MD Hospital Day: LOS: 3 days Patient Summary: 74-year-old gentleman with past medical history of bilateral nonheali ng diabetic foot ulcer, and history of traumatic brain injury, stroke, diabetes mellitus typ e 2 insulin-dependent who was recently admitted to [facility] from 03/28/21 020 with acute hypoxic respiratory failure secondary to systolic CHF exacerbation with eject ion fraction of 40%, CTA chest negative for PE, troponin was minimally elevated 0.44 treated conservatively with medical therapy discharge to [facility] who went back to [facility] emergency department with worsening shortness of [...] 04/09/2019 1044 Gross per 24 hour Intake 72530 ml Output 9850 ml Net 856 ml [...] 8 days of IV antibiotic at [facility] discharged home on on Augmentin readmitted on at [facility] and started on Rocephin after [...] might be different from the o sheryl. [facility] Service: Podiatry Progress Note Hospital Day: LOS: 3 days Post-Op Day: * No surgery found * SUBJECTIVE Patient Summary: The patient is 74 y.o. male with significant cardiac and IDDM2 past medical history with recent admissions to [facility] where he was found to have el evated troponin level and he became decompensated and desaturated and was transferred to [facility] for a higher level of care. [...] Ady Mata RN - 04/08/2019 9:49 PM [id number]: pt a/o to all, vss. cbi in [...] Hospitalist Progress Note Reagan Shepard 74 y.o. [id number] male Jamar Manuel MD Hospital Day: LOS: 2 days Patient Summary: 74-year-old gentleman with past medical history of bilateral nonheali ng diabetic foot ulcer, and history of traumatic brain injury, stroke, diabetes mellitus typ e 2 insulin-dependent who was recently admitted to [facility] from 03/28/21 020 with acute hypoxic respiratory failure secondary to systolic CHF exacerbation with eject ion fraction of 40%, CTA chest negative for PE, troponin was minimally elevated 0.44 treated conservatively with medical therapy discharge to [facility] who went back to [facility] emergency department with worsening shortness of [...] 8 days of IV antibiotic at [facility] discharged home on on Augmentin readmitted on at [facility] and started on Rocephin after [...] might be different from trina allen original. [facility] Service: Cardiology Progress Note Hospital [...] Nandini Barboza RN - 04/07/2019 10:48 PM [id number]: pt a/o to all, occasionally forgetful, vss. [...] Hospitalist Progress Note Reagan Shepard 74 y.o. [id number] male Jamar Manuel MD Hospital Day: LOS: 1 day Patient Summary: 74-year-old gentleman with past medical history of bilateral nonheali ng diabetic foot ulcer, and history of traumatic brain injury, stroke, diabetes mellitus typ e 2 insulin-dependent who was recently admitted to [facility] from 03/28/21 020 with acute hypoxic respiratory failure secondary to systolic CHF exacerbation with eject ion fraction of 40%, CTA chest negative for PE, troponin was minimally elevated 0.44 treated conservatively with medical therapy discharge to [facility] who went back to [facility] emergency department with worsening shortness of [...] 8 days of IV antibiotic at [facility] discharged home on on Augmentin readmitted on at [facility] and started on Rocephin after [...] might be different from trina allen original. [facility] Service: Cardiology Progress Note Hospital [...] Andrés Novoa RN - 04/06/2019 10:15 AM [facility] Service: Wound/Ostomy Care Progress Note Wound care [...] | | | | right foot ([facility]) | 04/20/2019 until | | | | | | 04/20/2020 | + +---------+--------+ + + | C-Reactive Protein | Lab | Routin | Other | Weekly for 6 | | | | e | osteomyelitis of | Occurrences starting | | | | | right foot ([facility]) | 04/20/2019 until | | | | | | 04/20/2020 | + +---------+--------+ + + | Sedimentation Rate | Lab | Routin | Other | Weekly for 6 | | | | e | osteomyelitis of | Occurrences starting | | | | | right foot ([facility]) | 04/20/2019 until | | [...] | | | | PST | ([facility]) Peripheral | | | | | | vascular disease | | | | | | ([facility]) Other | | | | | | osteomyelitis of | | | | | | right foot ([facility]) | | | | | | Essential | | | | | | hypertension Acute | | | | | | left hemiparesis | | | | | | ([facility]) | | + +--------+ + [...] | | | | | performed at [facility] | | | | | | [facility];[place], [place] | | | | | | [address] | | | | + + + + + + + + | Specimen | + + | Blood | + + + + + + + | Performing | Address | City/State/Zipcode | Phone Number | | Organization | | | | + + + + + | [facility] | [address] | [place] [address] | [phone] | + + + + + POC Glucose (04/21/2019 11:54 AM PST) + + + + + + | Component | Value | Ref Range | Performed | Pathologist | | | | | At | Signature | + + + + + + | Glucose, | 164 (H)Comment: Testing | 65 - 99 mg/dL | [facility] | | | POC | performed at [facility];[address] | | LABORATORY | | | | [address];[place], [place] | | | | | | [address] | | | | + + + + + + + + | Specimen | + + | | + + + + + + + | Performing | Address | City/State/Zipcode | Phone Number | | Organization | | | | + + + + + | [facility] | [address] | [place] [address] | [phone] | + + + + + POC Glucose (04/21/2019 8:10 AM PST) + + + + + + | Component | Value | Ref Range | Performed | Pathologist | | | | | At | Signature | + + + + + + | Glucose, | 131 (H)Comment: Testing | 65 - 99 mg/dL | [facility] | | | POC | performed at [facility];[address] | | LABORATORY | | | | [address];[place] | | | | | | [address] | | | | + + + + + + + + | Specimen | + + | | + + + + + + + | Performing | Address | City/State/Zipcode | Phone Number | | Organization | | | | + + + + + | [facility] | [address] | [place] [address] | [phone] | + + + + + POC [...] | | | POC | performed at [facility];[address] | | LABORATORY | | | | [address];[place], [place] | | | | | | [address] | | | | + + + + + + + + | Specimen | + + | | + + + + + + + | Performing | Address | City/State/Zipcode | Phone Number | | Organization | | | | + + + + + | [facility] | [address] | [place] [address] | [phone] | + + + + + POC [...] | | | POC | performed at [facility];[address] | | LABORATORY | | | | [address];[place] | | | | | | [address] | | | | + + + + + + + + | Specimen | + + | | + + + + + + + | Performing | Address | City/State/Zipcode | Phone Number | | Organization | | | | + + + + + | [facility] | [address] | [place] [address] | [phone] | + + + + + POC [...] | | | POC | performed at [facility];[address] | | LABORATORY | | | | [address];[place], [place] | | | | | | [address] | | | | + + + + + + + + | Specimen | + + | | + + + + + + + | Performing | Address | City/State/Zipcode | Phone Number | | Organization | | | | + + + + + | [facility] | [address] | [place] [address] | [phone] | + + + + + POC [...] | | | POC | performed at [facility];[address] | | LABORATORY | | | | [address];[place], [place] | | | | | | [address] | | | | + + + + + + + + | Specimen | + + | | + + + + + + + | Performing | Address | City/State/Zipcode | Phone Number | | Organization | | | | + + + + + | [facility] | [address] | [place] [address] | [phone] | + + + + + POC Glucose (04/20/2019 12:44 PM PST) + + + + + + | Component | Value | Ref Range | Performed | Pathologist | | | | | At | Signature | + + + + + + | Glucose, | 273 (H)Comment: Testing | 65 - 99 mg/dL | [facility] | | | POC | performed at [facility];[address] | | LABORATORY | | | | [address];[place], [place] | | | | | | [address] | | | | + + + + + + + + | Specimen | + + | | + + + + + + + | Performing | Address | City/State/Zipcode | Phone Number | | Organization | | | | + + + + + | [facility] | [address] | [place] [address] | [phone] | + + + + + Vancomycin Level (04/20/2019 12:39 PM PST) + + + + + + | Component | Value | Ref Range | Performed | Pathologist | | | | | At | Signature | + + + + + + | Vancomycin | 18.3Comment: Testing | ug/mL | [facility] | | | Random, | performed at [facility];[address] | | LABORATORY | | | Serum | [address];[place] | | | | | | [address] | | | | + + + + + + + + | Specimen | + + | Blood | + + + + + + + | Performing | Address | City/State/Zipcode | Phone Number | | Organization | | | | + + + + + | [facility] | [address] | [place] [address] | [phone] | + + + + + POC [...] | | | POC | performed at [facility];[address] | | LABORATORY | | | | [address];[place] | | | | | | [address] | | | | + + + + + + + + | Specimen | + + | | + + + + + + + | Performing | Address | City/State/Zipcode | Phone Number | | Organization | | | | + + + + + | [facility] | [address] | [place] [address] | [phone] | + + + + + POC Glucose (04/20/2019 8:16 AM PST) + + + + + + | Component | Value | Ref Range | Performed | Pathologist | | | | | At | Signature | + + + + + + | Glucose, | 300 (H)Comment: Testing | 65 - 99 mg/dL | [facility] | | | POC | performed at [facility];[address] | | LABORATORY | | | | [address];[place] | | | | | | [address] | | | | + + + + + + + + | Specimen | + + | | + + + + + + + | Performing | Address | City/State/Zipcode | Phone Number | | Organization | | | | + + + + + | [facility] | [address] | [place] [address] | [phone] | + + + + + POC [...] | | | POC | performed at [facility];[address] | | LABORATORY | | | | [address];[place], [place] | | | | | | [address] | | | | + + + + + + + + | Specimen | + + | | + + + + + + + | Performing | Address | City/State/Zipcode | Phone Number | | Organization | | | | + + + + + | [facility] | [address] | [place] [address] | [phone] | + + + + + POC [...] | | | POC | performed at [facility];[address] | | LABORATORY | | | | [address];[place] | | | | | | [address] | | | | + + + + + + + + | Specimen | + + | | + + + + + + + | Performing | Address | City/State/Zipcode | Phone Number | | Organization | | | | + + + + + | [facility] | [address] | [place] [address] | [phone] | + + + + + POC Glucose (04/19/2019 12:44 PM PST) + + + + + + | Component | Value | Ref Range | Performed | Pathologist | | | | | At | Signature | + + + + + + | Glucose, | 209 (H)Comment: Testing | 65 - 99 mg/dL | [facility] | | | POC | performed at [facility];[address] | | LABORATORY | | | | [address];[place], [place] | | | | | | [address] | | | | + + + + + + + + | Specimen | + + | | + + + + + + + | Performing | Address | City/State/Zipcode | Phone Number | | Organization | | | | + + + + + | [facility] | [address] | [place] [address] | [phone] | + + + + + POC [...] | | | POC | performed at [facility];[address] | | LABORATORY | | | | [address];[place], [place] | | | | | | [address] | | | | + + + + + + + + | Specimen | + + | | + + + + + + + | Performing | Address | City/State/Zipcode | Phone Number | | Organization | | | | + + + + + | [facility] | [address] | [place] [address] | [phone] | + + + + + Basic [...] | >60Comment: GFR <60: | >60 | [facility] | | | GFR | CHRONIC KIDNEY [...] | | | | | | MDRD [facility] traceable | | | | | | equation.Testing | | | | | | performed at [facility], [address] | | | | | | [facility], | | | | | | [place] [address] | | | | + + + + + + + + | Specimen | + + | Blood | + + + + + + + | Performing | Address | City/State/Zipcode | Phone Number | | Organization | | | | + + + + + | [facility] | [address] | [place] [address] | [phone] | + + + + + CBC [...] | | | | | performed at [facility], [address] | | | | | | [facility], | | | | | | [place] [address] | | | | | |MICRO | | | | | |NORMAL PLT MORPH | | | | | |Testing performed at [facility], [address] [facility], [place] [address] | | | | | | | | | | + + +---- + + + + + | Specimen | + + | Blood | + + + + + + + | Performing | Address | City/State/Zipcode | Phone Number | | Organization | | | | + + + + + | [facility] | [address] | [place] [address] | [phone] | + + + + + POC [...] | | | POC | performed at [facility];[address] | | LABORATORY | | | | [address];[place] | | | | | | [address] | | | | + + + + + + + + | Specimen | + + | | + + + + + + + | Performing | Address | City/State/Zipcode | Phone Number | | Organization | | | | + + + + + | [facility] | [address] | [place] [address] | [phone] | + + + + + POC Glucose (04/18/2019 9:02 PM PST) + + + + + + | Component | Value | Ref Range | Performed | Pathologist | | | | | At | Signature | + + + + + + | Glucose, | 295 (H)Comment: Testing | 65 - 99 mg/dL | [facility] | | | POC | performed at [facility];[address] | | LABORATORY | | | | [address];[place] | | | | | | [address] | | | | + + + + + + + + | Specimen | + + | | + + + + + + + | Performing | Address | City/State/Zipcode | Phone Number | | Organization | | | | + + + + + | [facility] | [address] | [place] [address] | [phone] | + + + + + POC Glucose (04/18/2019 8:01 PM PST) + + + + + + | Component | Value | Ref Range | Performed | Pathologist | | | | | At | Signature | + + + + + + | Glucose, | 245 (H)Comment: Testing | 65 - 99 mg/dL | [facility] | | | POC | performed at [facility];[address] | | LABORATORY | | | | [address];[place] | | | | | | [address] | | | | + + + + + + + + | Specimen | + + | | + + + + + + + | Performing | Address | City/State/Zipcode | Phone Number | | Organization | | | | + + + + + | [facility] | [address] | [place] [address] | [phone] | + + + + + POC [...] | | | POC | performed at [facility];[address] | | LABORATORY | | | | [address];[place], [place] | | | | | | [address] | | | | + + + + + + + + | Specimen | + + | | + + + + + + + | Performing | Address | City/State/Zipcode | Phone Number | | Organization | | | | + + + + + | [facility] | [address] | [place] [address] | [phone] | + + + + + POC [...] | | | POC | performed at [facility];[address] | | LABORATORY | | | | [address];[place] | | | | | | [address] | | | | + + + + + + + + | Specimen | + + | | + + + + + + + | Performing | Address | City/State/Zipcode | Phone Number | | Organization | | | | + + + + + | [facility] | [address] | [place] [address] | [phone] | + + + + + NM [...] | | | POC | performed at [facility];[address] | | LABORATORY | | | | [address];[place], [place] | | | | | | [address] | | | | + + + + + + + + | Specimen | + + | | + + + + + + + | Performing | Address | City/State/Zipcode | Phone Number | | Organization | | | | + + + + + | [facility] | [address] | [place] [address] | [phone] | + + + + + Basic [...] 8.0 (L) | 8.5 - 10.5 | [facility] | | | | | mg/dL | LABORATORY | | + + + + + + | Estimated | >60Comment: GFR <60: | >60 | [facility] | | | GFR | CHRONIC KIDNEY [...] | | | | | performed at [facility] | | | | | | [facility];[place], [place] | | | | | | [address] | | | | + + + + + + + + | Specimen | + + | Blood | + + + + + + + | Performing | Address | City/State/Zipcode | Phone Number | | Organization | | | | + + + + + | [facility] | [address] | [place] [address] | [phone] | + + + + + CBC [...] | | | Estimate | performed at [facility];[address] | | LABORATORY | | | | [address];[place] | | | | | | [address] | | | | + + + + + + + + | Specimen | + + | Blood | + + + + + + + | Performing | Address | City/State/Zipcode | Phone Number | | Organization | | | | + + + + + | [facility] | [address] | [place] [address] | [phone] | + + + + + POC [...] | | | POC | performed at [facility];[address] | | LABORATORY | | | | [address];[place], [place] | | | | | | [address] | | | | + + + + + + + + | Specimen | + + | | + + + + + + + | Performing | Address | City/State/Zipcode | Phone Number | | Organization | | | | + + + + + | [facility] | [address] | [place] [address] | [phone] | + + + + + POC [...] | | | POC | performed at [facility];[address] | | LABORATORY | | | | [address];[place] | | | | | | [address] | | | | + + + + + + + + | Specimen | + + | | + + + + + + + | Performing | Address | City/State/Zipcode | Phone Number | | Organization | | | | + + + + + | [facility] | [address] | [place] [address] | [phone] | + + + + + Vancomycin, [...] | | | | | performed at [facility] | | | | | | [facility];[place], [place] | | | | | | [address] | | | | + + + + + + + + | Specimen | + + | Blood | + + + + + + + | Performing | Address | City/State/Zipcode | Phone Number | | Organization | | | | + + + + + | [facility] | [address] | [place] [address] | [phone] | + + + + + POC Glucose (04/17/2019 12:05 PM PST) + + + + + + | Component | Value | Ref Range | Performed | Pathologist | | | | | At | Signature | + + + + + + | Glucose, | 200 (H)Comment: Testing | 65 - 99 mg/dL | [facility] | | | POC | performed at [facility];[address] | | LABORATORY | | | | [address];[place] | | | | | | [address] | | | | + + + + + + + + | Specimen | + + | | + + + + + + + | Performing | Address | City/State/Zipcode | Phone Number | | Organization | | | | + + + + + | [facility] | [address] | [place] [address] | [phone] | + + + + + POC [...] | | | POC | performed at [facility];[address] | | LABORATORY | | | | [address];[place] | | | | | | [address] | | | | + + + + + + + + | Specimen | + + | | + + + + + + + | Performing | Address | City/State/Zipcode | Phone Number | | Organization | | | | + + + + + | [facility] | [address] | [place] [address] | [phone] | + + + + + POC [...] | | | POC | performed at [facility];[address] | | LABORATORY | | | | [address];[place], [place] | | | | | | [address] | | | | + + + + + + + + | Specimen | + + | | + + + + + + + | Performing | Address | City/State/Zipcode | Phone Number | | Organization | | | | + + + + + | [facility] | [address] | [place] [address] | [phone] | + + + + + Basic [...] | >60Comment: GFR <60: | >60 | [facility] | | | GFR | CHRONIC KIDNEY [...] | | | | | performed at [facility], [address] | | | | | | [facility], | | | | | | [place] [address] | | | | + + + + + + + + | Specimen | + + | Blood | + + + + + + + | Performing | Address | City/State/Zipcode | Phone Number | | Organization | | | | + + + + + | [facility] | [address] | [place] [address] | [phone] | + + + + + CBC [...] | | | | | performed at [facility], [facility] [address] | | | | | | [facility], | | | | | | [place] [address] | | | | | |MICRO | | | | | |NORMAL PLT MORPH | | | | | |Testing performed at [facility], [facility] [place] [address] | | | | | | | | | | + + +---- + + + + + | Specimen | + + | Blood | + + + + + + + | Performing | Address | City/State/Zipcode | Phone Number | | Organization | | | | + + + + + | [facility] | [address] | [place] [address] | [phone] | + + + + + POC Glucose (04/16/2019 8:57 PM PST) + + + + + + | Component | Value | Ref Range | Performed | Pathologist | | | | | At | Signature | + + + + + + | Glucose, | 96Comment: Testing | 65 - 99 mg/dL | [facility] | | | POC | performed at [facility];[address] | | LABORATORY | | | | [address];[place] | | | | | | [address] | | | | + + + + + + + + | Specimen | + + | | + + + + + + + | Performing | Address | City/State/Zipcode | Phone Number | | Organization | | | | + + + + + | [facility] | [address] | [place] [address] | [phone] | + + + + + POC [...] | | | POC | performed at [facility];[address] | | LABORATORY | | | | [address];[place], [place] | | | | | | [address] | | | | + + + + + + + + | Specimen | + + | | + + + + + + + | Performing | Address | City/State/Zipcode | Phone Number | | Organization | | | | + + + + + | [facility] | [address] | [place] [address] | [phone] | + + + + + POC [...] | | | POC | performed at [facility];[address] | | LABORATORY | | | | [address];[place], [place] | | | | | | [address] | | | | + + + + + + + + | Specimen | + + | | + + + + + + + | Performing | Address | City/State/Zipcode | Phone Number | | Organization | | | | + + + + + | [facility] | [address] | [place] [address] | [phone] | + + + + + POC [...] | | | POC | performed at [facility];[address] | | LABORATORY | | | | [address];[place], [place] | | | | | | [address] | | | | + + + + + + + + | Specimen | + + | | + + + + + + + | Performing | Address | City/State/Zipcode | Phone Number | | Organization | | | | + + + + + | [facility] | [address] | [place] [address] | [phone] | + + + + + CBC [...] | | | | | performed at [facility], [address] | | | | | | [facility], | | | | | | [place] [address] | | | | | |MICRO | | | | | |NORMAL PLT MORPH | | | | | |Testing performed at [facility], [address] [facility], [place] [address] | | | | | | | | | | + + +---- + + + + + | Specimen | + + | Blood | + + + + + + + | Performing | Address | City/State/Zipcode | Phone Number | | Organization | | | | + + + + + | [facility] | [address] | [place] [address] | [phone] | + + + + + Basic [...] W | | | | | | [facility], | | | | | | [place] [address] | | | | + + + + + + + + | Specimen | + + | Blood | + + + + + + + | Performing | Address | City/State/Zipcode | Phone Number | | Organization | | | | + + + + + | [facility] | [address] | [place] [address] | [phone] | + + + + + POC Glucose (04/15/2019 9:03 PM PST) + + + + + + | Component | Value | Ref Range | Performed | Pathologist | | | | | At | Signature | + + + + + + | Glucose, | 171 (H)Comment: Testing | 65 - 99 mg/dL | [facility] | | | POC | performed at [facility];[address] | | LABORATORY | | | | [address];[place], [place] | | | | | | [address] | | | | + + + + + + + + | Specimen | + + | | + + + + + + + | Performing | Address | City/State/Zipcode | Phone Number | | Organization | | | | + + + + + | [facility] | [address] | [place] [address] | [phone] | + + + + + POC [...] | | | POC | performed at [facility];[address] | | LABORATORY | | | | [address];[place], [place] | | | | | | [address] | | | | + + + + + + + + | Specimen | + + | | + + + + + + + | Performing | Address | City/State/Zipcode | Phone Number | | Organization | | | | + + + + + | [facility] | [address] | [place] [address] | [phone] | + + + + + POC Glucose (04/15/2019 1:19 PM PST) + + + + + + | Component | Value | Ref Range | Performed | Pathologist | | | | | At | Signature | + + + + + + | Glucose, | 227 (H)Comment: Testing | 65 - 99 mg/dL | [facility] | | | POC | performed at [facility];[address] | | LABORATORY | | | | [address];[place], [place] | | | | | | [address] | | | | + + + + + + + + | Specimen | + + | | + + + + + + + | Performing | Address | City/State/Zipcode | Phone Number | | Organization | | | | + + + + + | [facility] | [address] | [place] [address] | [phone] | + + + + + Type [...] + + + | BB BAND | [id number] | | [facility] | | | | | | LABORATORY | | + + + + + + | UNIT # | [id number] | | [facility] | | | | [...] + + + | UNIT # | [id number] | | [facility] | | | | [...] + + + | UNIT # | [id number] | | [facility] | | | | [...] | | | RESULT | performed at [facility];888 | | LABORATORY | | | | [address];[place] | | | | | | [address] | | | | + + + + + + + + | Specimen | + + | Blood | + + + + + + + | Performing | Address | City/State/Zipcode | Phone Number | | Organization | | | | + + + + + | [facility] | [address] | [place] [address] | [phone] | + + + + + Red [...] | ORDER RECEIVED IN BLOOD | | [facility] | | | COMMENT | BANK. | | LABORATORY | | + + + + + + | BLOOD BANK | Testing performed at | | [facility] | | | COMMENT | [facility];[address] | | LABORATORY | | | | [address];[place] [address] | | | | + + + + + + + + | Specimen | + + | | + + + + + + + | Performing | Address | City/State/Zipcode | Phone Number | | Organization | | | | + + + + + | [facility] | [address] | [place] [address] | [phone] | + + + + + POC [...] | | | POC | performed at [facility];[address] | | LABORATORY | | | | [address];[place], [place] | | | | | | [address] | | | | + + + + + + + + | Specimen | + + | | + + + + + + + | Performing | Address | City/State/Zipcode | Phone Number | | Organization | | | | + + + + + | [facility] | [address] | [place] [address] | [phone] | + + + + + Vancomycin, [...] | | | | | performed at [facility];[address] | | | | | | [address];[place] | | | | | | [address] | | | | + + + + + + + + | Specimen | + + | Blood | + + + + + + + | Performing | Address | City/State/Zipcode | Phone Number | | Organization | | | | + + + + + | [facility] | [address] | [place] [address] | [phone] | + + + + + CBC [...] | | | Estimate | performed at [facility] | | LABORATORY | | | | [address];[place] | | | | | | [address] | | | | + + + + + + + + | Specimen | + + | Blood | + + + + + + + | Performing | Address | City/State/Zipcode | Phone Number | | Organization | | | | + + + + + | [facility] | [address] | [place] [address] | [phone] | + + + + + Basic [...] 8.1 (L) | 8.5 - 10.5 | [facility] | | | | | mg/dL | LABORATORY | | + + + + + + | Estimated | >60Comment: GFR <60: | >60 | [facility] | | | GFR | CHRONIC KIDNEY [...] | | | | | | MDRD IDMA traceable | | | | | | equation.Testing | | | | | | performed at [facility];[address] | | | | | | [facility];[place], [place] | | | | | | [address] | | | | + + + + + + + + | Specimen | + + | Blood | + + + + + + + | Performing | Address | City/State/Zipcode | Phone Number | | Organization | | | | + + + + + | [facility] | [address] | [place] [address] | [phone] | + + + + + POC [...] | | | POC | performed at [facility];888 | | LABORATORY | | | | [address];[place] | | | | | | [address] | | | | + + + + + + + + | Specimen | + + | | + + + + + + + | Performing | Address | City/State/Zipcode | Phone Number | | Organization | | | | + + + + + | [facility] | [address] [facility] | [place] [address] | [phone] | + + + + + POC [...] | | | POC | performed at [facility];[address] | | LABORATORY | | | | [address];[place], [place] | | | | | | [address] | | | | + + + + + + + + | Specimen | + + | | + + + + + + + | Performing | Address | City/State/Zipcode | Phone Number | | Organization | | | | + + + + + | [facility] | [address] | [place] [address] | [phone] | + + + + + POC [...] | | | POC | performed at [facility];[address] | | LABORATORY | | | | [address];[place] | | | | | | [address] | | | | + + + + + + + + | Specimen | + + | | + + + + + + + | Performing | Address | City/State/Zipcode | Phone Number | | Organization | | | | + + + + + | [facility] | [address] | [place] [address] | [phone] | + + + + + ECHO [...] + + | Performing | Address | City/State/Rustcode | Phone Number | | Organization | [...] | | | POC | performed at [facility];[address] | | LABORATORY | | | | [address];[place] | | | | | | [address] | | | | + + + + + + + + | Specimen | + + | | + + + + + + + | Performing | Address | City/State/Zipcode | Phone Number | | Organization | | | | + + + + + | [facility] | [address] | [place] [address] | [phone] | + + + + + B Type Natriuretic Peptide (04/14/2019 6:29 AM PST) + + + + + + | Component | Value | Ref Range | Performed | Pathologist | | | | | At | Signature | + + + + + + | BNP | 587.58 (H)Comment: | 0 - 100 pg/mL | [facility] | | | | Testing performed at | | LABORATORY | | | | [facility];[address] | [address] | | | [address];[place] [address] | | | | + + + + + + + + | Specimen | + + | | + + + + + + + | Performing | Address | City/State/Zipcode | Phone Number | | Organization | | | | + + + + + | [facility] | [address] | [place] [address] | [phone] | + + + + + CBC [...] | | | Estimate | performed at [facility] | | LABORATORY | | | | [address];[place], [place] | | | | | | [address] | | | | + + + + + + + + | Specimen | + + | | + + + + + + + | Performing | Address | City/State/Zipcode | Phone Number | | Organization | | | | + + + + + | [facility] | [address] | [place] [address] | [phone] | + + + + + Troponin [...] at | | | | | | [facility];[address] | | | | | | [address];[place] [address] | | | | + + + + + + + + | Specimen | + + | Blood | + + + + + + + | Performing | Address | City/State/Zipcode | Phone Number | | Organization | | | | + + + + + | [facility] | [address] | [place] [address] | [phone] | + + + + + Basic [...] | | | | | | MDRD [facility] traceable | | | | | | equation.Testing | | | | | | performed at [facility];[address] | | | | | | [facility];[place], [place] | | | | | | [address] | | | | + + + + + + + + | Specimen | + + | Blood | + + + + + + + | Performing | Address | City/State/Zipcode | Phone Number | | Organization | | | | + + + + + | [facility] | [address] | [place] [address] | [phone] | + + + + + Vancomycin Level (04/14/2019 4:53 AM PST) + + + + + + | Component | Value | Ref Range | Performed | Pathologist | | | | | At | Signature | + + + + + + | Vancomycin | 20.6Comment: Testing | ug/mL | [facility] | | | Random, | performed at [facility];[address] | | LABORATORY | | | Serum | [facility];[place], [place] | | | | | | [address] | | | | + + + + + + + + | Specimen | + + | Blood | + + + + + + + | Performing | Address | City/State/Zipcode | Phone Number | | Organization | | | | + + + + + | [facility] | [address] | [place] [address] | [phone] | + + + + + POC [...] | | | POC | performed at [facility];[address] | | LABORATORY | | | | [address];[place] | | | | | | [address] | | | | + + + + + + + + | Specimen | + + | | + + + + + + + | Performing | Address | City/State/Zipcode | Phone Number | | Organization | | | | + + + + + | [facility] | [address] | [place] [address] | [phone] | + + + + + Troponin I (04/14/2019 1:19 AM PST) + + + + + + | Component | Value | Ref Range | Performed | Pathologist | | | | | At | Signature | + + + + + + | Troponin I | 0.015Comment: 0.04 | 0.00 - 0.04 | [facility] | | | | ng/mL or less [...] at | | | | | | [facility];[address] [address] | | | | | | Blvd;[place] [address] | | | | + + + + + + + + | Specimen | + + | Blood | + + + + + + + | Performing | Address | City/State/Zipcode | Phone Number | | Organization | | | | + + + + + | [facility] | [address] | [place] [address] | [phone] | + + + + + ECG [...] | | | POC | performed at [facility];[address] | | LABORATORY | | | | [address];[place] | | | | | | [address] | | | | + + + + + + + + | Specimen | + + | | + + + + + + + | Performing | Address | City/State/Zipcode | Phone Number | | Organization | | | | + + + + + | [facility] | [address] | [place] [address] | [phone] | + + + + + POC Glucose (04/13/2019 4:19 PM PST) + + + + + + | Component | Value | Ref Range | Performed | Pathologist | | | | | At | Signature | + + + + + + | Glucose, | 109 (H)Comment: Testing | 65 - 99 mg/dL | [facility] | | | POC | performed at [facility];[address] | | LABORATORY | | | | [address];[place] | | | | | | [address] | | | | + + + + + + + + | Specimen | + + | | + + + + + + + | Performing | Address | City/State/Zipcode | Phone Number | | Organization | | | | + + + + + | [facility] | [address] | [place] [address] | [phone] | + + + + + XR [...] + + | Performing | Address | City[facility] | Phone Number | | [...] catheterization with right leg runoff4. Right SFA WEIGHMASTER | | | crossing and atherectomy using Bard 14 S crossing catheter SURGEON: | | | Simba Cheng MD PURCHASING/RECEIVING: None ANESTHESIA: Moderate sedation and local | [...] | | identified and brought to the Cold Type Artist. The patient was placed supine | | [...] sized to a 4 | | | Tristanian sheath. A Omni flush catheter was then [...] inserted over the catheter and the 4 Tristanian sheath was | | | removed. A 7 Tristanian destination sheath was then inserted over the [...] | | | POC | performed at [facility];[address] | | LABORATORY | | | | [address];[place] | | | | | | [address] | | | | + + + + + + + + | Specimen | + + | | + + + + + + + | Performing | Address | City/State/Zipcode | Phone Number | | Organization | | | | + + + + + | [facility] | [address] | [place] [address] | [phone] | + + + + + POC Glucose (04/13/2019 7:59 AM PST) + + + + + + | Component | Value | Ref Range | Performed | Pathologist | | | | | At | Signature | + + + + + + | Glucose, | 124 (H)Comment: Testing | 65 - 99 mg/dL | [facility] | | | POC | performed at [facility];[address] | | LABORATORY | | | | [address];[place] | | | | | | [address] | | | | + + + + + + + + | Specimen | + + | | + + + + + + + | Performing | Address | City/State/Zipcode | Phone Number | | Organization | | | | + + + + + | [facility] | [address] | [place] [address] | [phone] | + + + + + Basic [...] | | | | | performed at [facility], [address] | | | | | | [address], | | | | | | [place] [address] | | | | + + + + + + + + | Specimen | + + | Blood | + + + + + + + | Performing | Address | City/State/Zipcode | Phone Number | | Organization | | | | + + + + + | [facility] | [address] | [place] [address] | [phone] | + + + + + CBC [...] | | | | | performed at [facility], [facility] [address] | | | | | | [facility], | | | | | | [place] [address] | | | | | |MICRO | | | | | |NORMAL PLT MORPH | | | | | |Testing performed at [facility], [facility] [place] [address] | | | | | | | | | | + + +---- + + + + + | Specimen | + + | Blood | + + + + + + + | Performing | Address | City/State/Zipcode | Phone Number | | Organization | | | | + + + + + | [facility] | [address] | [place] [address] | [phone] | + + + + + POC Glucose (04/13/2019 3:30 AM PST) + + + + + + | Component | Value | Ref Range | Performed | Pathologist | | | | | At | Signature | + + + + + + | Glucose, | 147 (H)Comment: Testing | 65 - 99 mg/dL | [facility] | | | POC | performed at [facility];[address] | | LABORATORY | | | | [address];[place], [place] | | | | | | [address] | | | | + + + + + + + + | Specimen | + + | | + + + + + + + | Performing | Address | City/State/Zipcode | Phone Number | | Organization | | | | + + + + + | [facility] | [address] | [place] [address] | [phone] | + + + + + POC [...] | | | POC | performed at [facility];[address] | | LABORATORY | | | | [address];[place], [place] | | | | | | [address] | | | | + + + + + + + + | Specimen | + + | | + + + + + + + | Performing | Address | City/State/Zipcode | Phone Number | | Organization | | | | + + + + + | [facility] | [address] | [place] [address] | [phone] | + + + + + POC Glucose (04/12/2019 4:28 PM PST) + + + + + + | Component | Value | Ref Range | Performed | Pathologist | | | | | At | Signature | + + + + + + | Glucose, | 211 (H)Comment: Testing | 65 - 99 mg/dL | [facility] | | | POC | performed at [facility];[address] | | LABORATORY | | | | [address];[place] | | | | | | [address] | | | | + + + + + + + + | Specimen | + + | | + + + + + + + | Performing | Address | City/State/Zipcode | Phone Number | | Organization | | | | + + + + + | [facility] | [address] | [place] [address] | [phone] | + + + + + POC Glucose (04/12/2019 11:53 AM PST) + + + + + + | Component | Value | Ref Range | Performed | Pathologist | | | | | At | Signature | + + + + + + | Glucose, | 162 (H)Comment: Testing | 65 - 99 mg/dL | [facility] | | | POC | performed at [facility];[address] | | LABORATORY | | | | [address];[place], [place] | | | | | | [address] | | | | + + + + + + + + | Specimen | + + | | + + + + + + + | Performing | Address | City/State/Zipcode | Phone Number | | Organization | | | | + + + + + | [facility] | [address] | [place] [address] | [phone] | + + + + + POC [...] | | | POC | performed at [facility];[address] | | LABORATORY | | | | [address];[place], [place] | | | | | | [address] | | | | + + + + + + + + | Specimen | + + | | + + + + + + + | Performing | Address | City/State/Zipcode | Phone Number | | Organization | | | | + + + + + | [facility] | [address] | [place] [address] | [phone] | + + + + + Basic [...] | >60Comment: GFR <60: | >60 | [facility] | | | GFR | CHRONIC KIDNEY [...] | | | | | | MDRD IDMA traceable | | | | | | equation.Testing | | | | | | performed at [facility], [address] | | | | | | [facility], | | | | | | [place] [address] | | | | + + + + + + + + | Specimen | + + | Blood | + + + + + + + | Performing | Address | City/State/Zipcode | Phone Number | | Organization | | | | + + + + + | [facility] | [address] | [place] [address] | [phone] | + + + + + CBC [...] | | | | | performed at [facility], [facility] [address] | | | | | | [facility], | | | | | | [place] [address] | | | | | |MICRO | | | | | |NORMAL PLT MORPH | | | | | |Testing performed at [facility], [facility] [place] [address] | | | | | | | | | | + + +---- + + + + + | Specimen | + + | Blood | + + + + + + + | Performing | Address | City/State/Zipcode | Phone Number | | Organization | | | | + + + + + | [facility] | [address] | [place] [address] | [phone] | + + + + + POC Glucose (04/11/2019 9:20 PM PST) + + + + + + | Component | Value | Ref Range | Performed | Pathologist | | | | | At | Signature | + + + + + + | Glucose, | 199 (H)Comment: Testing | 65 - 99 mg/dL | [facility] | | | POC | performed at [facility];[address] | | LABORATORY | | | | [address];[place] | | | | | | [address] | | | | + + + + + + + + | Specimen | + + | | + + + + + + + | Performing | Address | City/State/Zipcode | Phone Number | | Organization | | | | + + + + + | [facility] | [address] | [place] [address] | [phone] | + + + + + POC [...] | | | POC | performed at [facility];[address] | | LABORATORY | | | | [address];[place] | | | | | | [address] | | | | + + + + + + + + | Specimen | + + | | + + + + + + + | Performing | Address | City/State/Zipcode | Phone Number | | Organization | | | | + + + + + | [facility] | [address] | [place] [address] | [phone] | + + + + + POC [...] | | | POC | performed at [facility];[address] | | LABORATORY | | | | [address];[place] | | | | | | [address] | | | | + + + + + + + + | Specimen | + + | | + + + + + + + | Performing | Address | City/State/Zipcode | Phone Number | | Organization | | | | + + + + + | [facility] | [address] | [place] [address] | [phone] | + + + + + IR [...] x 150 mm | | | angioplasty [id number]. Left SFA stenting using 7 x 120 mm | | | self-expanding stent SURGEON: Simba Cheng MD PURCHASING/RECEIVING: None ANESTHESIA: | | | Moderate sedation [...] | | identified and brought to the Cold Type Artist. The patient was placed supine | | [...] sized to a 4 | | | Tristanian sheath. A Omni flush catheter was then [...] inserted over the catheter and the 4 Tristanian sheath was | | | removed. A 7 Tristanian destination sheath was then inserted over the [...] using a | | | Glidewire and Ashford catheter. A 0.009 wire was then passed [...] crossed using a | | |Glidewire and Ashford catheter. A 0.009 wire was then passed [...] | | | POC | performed at [facility];[address] | | LABORATORY | | | | [address];[place], [place] | | | | | | [address] | | | | + + + + + + + + | Specimen | + + | | + + + + + + + | Performing | Address | City/State/Zipcode | Phone Number | | Organization | | | | + + + + + | [facility] | [address] | [place] [address] | [phone] | + + + + + B Type Natriuretic Peptide (04/11/2019 5:48 AM PST) + + + + + + | Component | Value | Ref Range | Performed | Pathologist | | | | | At | Signature | + + + + + + | BNP | 220.45 (H)Comment: | 0 - 100 pg/mL | [facility] | | | | Testing performed at | | LABORATORY | | | | [facility];[address] | | | [address];[place] [address] | | | | + + + + + + + + | Specimen | + + | Blood | + + + + + + + | Performing | Address | City/State/Zipcode | Phone Number | | Organization | | | | + + + + + | [facility] | [address] | [place] [address] | [phone] | + + + + + Basic [...] | | | | | performed at [facility], [address] | | | | | [address], | | | | | | [place] [address] | | | | + + + + + + + + | Specimen | + + | Blood | + + + + + + + | Performing | Address | City/State/Zipcode | Phone Number | | Organization | | | | + + + + + | [facility] | [address] | [place] [address] | [phone] | + + + + + CBC [...] | | | | | | at [facility], [address] | | | | | | [facility], | | | | | | [place] [address] | | | | | |Testing performed at [facility], [address] [facility], [place] [place] [address] | | | | | | | | | | + + +---- + + + + + | Specimen | + + | Blood | + + + + + + + | Performing | Address | City/State/Zipcode | Phone Number | | Organization | | | | + + + + + | [facility] | [address] | [place] [address] | [phone] | + + + + + POC Glucose (04/10/2019 9:22 PM PST) + + + + + + | Component | Value | Ref Range | Performed | Pathologist | | | | | At | Signature | + + + + + + | Glucose, | 127 (H)Comment: Testing | 65 - 99 mg/dL | [facility] | | | POC | performed at [facility];[address] | | LABORATORY | | | | [address];[place] | | | | | | [address] | | | | + + + + + + + + | Specimen | + + | | + + + + + + + | Performing | Address | City/State/Zipcode | Phone Number | | Organization | | | | + + + + + | [facility] | [address] | [place] [address] | [phone] | + + + + + POC Glucose (04/10/2019 2:33 PM PST) + + + + + + | Component | Value | Ref Range | Performed | Pathologist | | | | | At | Signature | + + + + + + | Glucose, | 176 (H)Comment: Testing | 65 - 99 mg/dL | [facility] | | | POC | performed at [facility];[address] | | LABORATORY | | | | [address];[place] | | | | | | [address] | | | | + + + + + + + + | Specimen | + + | | + + + + + + + | Performing | Address | City/State/Zipcode | Phone Number | | Organization | | | | + + + + + | [facility] | [address] | [place] [address] | [phone] | + + + + + [place] [...] | | | POC | performed at [facility];[address] | | LABORATORY | | | | [address];[place] | | | | | | [address] | | | | + + + + + + + + | Specimen | + + | | + + + + + + + | Performing | Address | City/State/Zipcode | Phone Number | | Organization | | | | + + + + + | [facility] | [address] | [place] [address] | [phone] | + + + + + CBC [...] | | | | | [place] [address] | | | | + + + + + + + + | Specimen | + + | Blood | + + + + + + + | Performing | Address | City/State/Zipcode | Phone Number | | Organization | | | | + + + + + | [facility] | [address] | [place] [address] | [phone] | + + + + + POC Glucose (04/09/2019 9:57 PM PST) + + + + + + | Component | Value | Ref Range | Performed | Pathologist | | | | | At | Signature | + + + + + + | Glucose, | 151 (H)Comment: Testing | 65 - 99 mg/dL | [facility] | | | POC | performed at [facility];[address] | | LABORATORY | | | | [address];[place] | | | | | | [address] | | | | + + + + + + + + | Specimen | + + | | + + + + + + + | Performing | Address | City/State/Zipcode | Phone Number | | Organization | | | | + + + + + | [facility] | [address] | [place] [address] | [phone] | + + + + + POC [...] | | | POC | performed at [facility];[address] | | LABORATORY | | | | [address];[place], [place] | | | | | | [address] | | | | + + + + + + + + | Specimen | + + | | + + + + + + + | Performing | Address | City/State/Zipcode | Phone Number | | Organization | | | | + + + + + | [facility] | [address] | [place] [address] | [phone] | + + + + + POC [...] | | | POC | performed at [facility];[address] | | LABORATORY | | | | [address];[place] | | | | | | [address] | | | | + + + + + + + + | Specimen | + + | | + + + + + + + | Performing | Address | City/State/Zipcode | Phone Number | | Organization | | | | + + + + + | [facility] | [address] | [place] [address] | [phone] | + + + + + XR Chest AP Portable (04/09/2019 9:02 AM PST) + + | Specimen | + + | | + + + + + | Impressions | Performed At | + + + | Hypoventilatory exam, it would be difficult to exclude an element of | [facility] | | congestive failure. Signed by: Madison Solis, [facility] | | | Sign Date/Time: 04/09/2019 9:25 [...] | | | Urine | performed at [facility], [address] | | LABORATORY | | | | [address], | | | | | | [place] [address] | | | | + + + + + + + + | Specimen | + + | | + + + + + + + | Performing | Address | City/State/Zipcode | Phone Number | | Organization | | | | + + + + + | [facility] | [address] | [place] [address] | [phone] | + + + + + Urinalysis, [...] - 1.030 | [facility] | | | [place], | | | LABORATORY | | | [...] | + + + + + | [facility] | [address] | [place] [address] | [phone] | + + + + + Sedimentation Rate (04/09/2019 6:16 AM PST) + + + + + + | Component | Value | Ref Range | Performed | Pathologist | | | | | At | Signature | + + + + + + | ESR | 91 (H)Comment: Testing | 0 - 20 mm/Hr | [facility] | | | | performed at [facility], [address] | | LABORATORY | | | | [address], | | | | | | [place] [address] | | | | + + + + + + + + | Specimen | + + | Blood | + + + + + + + | Performing | Address | City/State/Zipcode | Phone Number | | Organization | | | | + + + + + | [facility] | [address] | [place] [address] | [phone] | + + + + + CBC [...] [facility] | | | | performed at [facility], [address] | | LABORATORY | | | | [address], | | | | | | [place] [address] | | | | + + + + + + + + | Specimen | + + | Blood | + + + + + + + | Performing | Address | City/State/Zipcode | Phone Number | | Organization | | | | + + + + + | [facility] | [address] | [place] [address] | [phone] | + + + + + Comprehensive [...] | | | | | performed at [facility], [address] | | | | | | [facility], | | | | | | [place] [address] | | | | + + + + + + + + | Specimen | + + | Blood | + + + + + + + | Performing | Address | City/State/Zipcode | Phone Number | | Organization | | | | + + + + + | [facility] | [address] | [place] [address] | [phone] | + + + + + POC Glucose (04/08/2019 10:09 PM PST) + + + + + + | Component | Value | Ref Range | Performed | Pathologist | | | | | At | Signature | + + + + + + | Glucose, | 168 (H)Comment: Testing | 65 - 99 mg/dL | [facility] | | | POC | performed at [facility];[address] | | LABORATORY | | | | [address];[place] | | | | | | [address] | | | | + + + + + + + + | Specimen | + + | | + + + + + + + | Performing | Address | City/State/Zipcode | Phone Number | | Organization | | | | + + + + + | [facility] | [address] | [place] [address] | [phone] | + + + + + Fecal Hemoglobin (04/08/2019 7:27 PM PST) + + + + + + | Component | Value | Ref Range | Performed | Pathologist | | | | | At | Signature | + + + + + + | FECAL | NEGATIVEComment: Testing | NEG | [facility] | | | OCCULT BLD | performed at [facility];[address] | | LABORATORY | | | | [address];[place] | | | | | | [address] | | | | + + + + + + + + | Specimen | + + | Stool - Stool | | specimen (specimen) | + + + + + + + | Performing | Address | City/State/Zipcode | Phone Number | | Organization | | | | + + + + + | [facility] | [address] | [place] [address] | [phone] | + + + + + POC Glucose (04/08/2019 6:34 PM PST) + + + + + + | Component | Value | Ref Range | Performed | Pathologist | | | | | At | Signature | + + + + + + | Glucose, | 179 (H)Comment: Testing | 65 - 99 mg/dL | [facility] | | | POC | performed at [facility];[address] | | LABORATORY | | | | [address];[place], [place] | | | | | | [address] | | | | + + + + + + + + | Specimen | + + | | + + + + + + + | Performing | Address | City/State/Zipcode | Phone Number | | Organization | | | | + + + + + | [facility] | [address] | [place] [address] | [phone] | + + + + + XR [...] Testing | 65 - 99 mg/dL | [facility] | | | POC | performed at [facility];[address] | | LABORATORY | | | | [address];[place], [place] | | | | | | [address] | | | | + + + + + + + + | Specimen | + + | | + + + + + + + | Performing | Address | City/State/Zipcode | Phone Number | | Organization | | | | + + + + + | [facility] | [address] | [place] [address] | [phone] | + + + + + XR [...] | | | POC | performed at [facility];[address] | | LABORATORY | | | | [address];[place], [place] | | | | | | [address] | | | | + + + + + + + + | Specimen | + + | | + + + + + + + | Performing | Address | City/State/Zipcode | Phone Number | | Organization | | | | + + + + + | [facility] | [address] | [place] [address] | [phone] | + + + + + B Type Natriuretic Peptide (04/08/2019 5:45 AM PST) + + + + + + | Component | Value | Ref Range | Performed | Pathologist | | | | | At | Signature | + + + + + + | BNP | 580.26 (H)Comment: | 0 - 100 pg/mL | [facility] | | | | Testing performed at | | LABORATORY | | | | [facility];[address] | | | [address];[place] [address] | | | | + + + + + + + + | Specimen | + + | Blood | + + + + + + + | Performing | Address | City/State/Zipcode | Phone Number | | Organization | | | | + + + + + | [facility] | [address] | [place] [address] | [phone] | + + + + + CBC [...] [facility] | | | | performed at [facility], [address] | | LABORATORY | | | | [address], | | | | | | [place] [address] | | | | + + + + + + + + | Specimen | + + | Blood | + + + + + + + | Performing | Address | City/State/Zipcode | Phone Number | | Organization | | | | + + + + + | [facility] | [address] | [place] [address] | [phone] | + + + + + Comprehensive [...] | | | | | performed at [facility], [address] | | | | | | [address], | | | | | | [place] [address] | | | | + + + + + + + + | Specimen | + + | Blood | + + + + + + + | Performing | Address | City/State/Zipcode | Phone Number | | Organization | | | | + + + + + | [facility] | [address] [facility] | [place] [address] | [phone] | + + + + + POC [...] | | | POC | performed at [facility];[address] | | LABORATORY | | | | [address];[place], [place] | | | | | | [address] | | | | + + + + + + + + | Specimen | + + | | + + + + + + + | Performing | Address | City/State/Zipcode | Phone Number | | Organization | | | | + + + + + | [facility] | [address] | [place] [address] | [phone] | + + + + + POC [...] | | | POC | performed at [facility];[address] | | LABORATORY | | | | [address];[place] | | | | | | [address] | | | | + + + + + + + + | Specimen | + + | | + + + + + + + | Performing | Address | City/State/Zipcode | Phone Number | | Organization | | | | + + + + + | [facility] | [address] | [place] [address] | [phone] | + + + + + POC Glucose (04/07/2019 12:40 PM PST) + + + + + + | Component | Value | Ref Range | Performed | Pathologist | | | | | At | Signature | + + + + + + | Glucose, | 252 (H)Comment: Testing | 65 - 99 mg/dL | [facility] | | | POC | performed at [facility];[address] | | LABORATORY | | | | [address];[place], [place] | | | | | | [address] | | | | + + + + + + + + | Specimen | + + | | + + + + + + + | Performing | Address | City/State/Zipcode | Phone Number | | Organization | | | | + + + + + | [facility] | [address] | [place] [address] | [phone] | + + + + + XR [...] Testing | 65 - 99 mg/dL | [facility] | | | POC | performed at [facility];[address] | | LABORATORY | | | | [address];[place] | | | | | | [address] | | | | + + + + + + + + | Specimen | + + | | + + + + + + + | Performing | Address | City/State/Zipcode | Phone Number | | Organization | | | | + + + + + | [facility] | [address] | [place] [address] | [phone] | + + + + + Magnesium (04/07/2019 5:02 AM PST) + + + + + + | Component | Value | Ref Range | Performed | Pathologist | | | | | At | Signature | + + + + + + | Magnesium | 2.1Comment: Testing | 1.7 - 2.4 mg/dL | [facility] | | | | performed at [facility], [address] | | LABORATORY | | | | [address], | | | | | | [place] [address] | | | | + + + + + + + + | Specimen | + + | Blood | + + + + + + + | Performing | Address | City/State/Zipcode | Phone Number | | Organization | | | | + + + + + | [facility] | [address] | [place] [address] | [phone] | + + + + + CBC [...] IDA | | | | performed at [facility];[address] | | LABORATORY | | | | [address];[place] | | | | | | [address] | | | | + + + + + + + + | Specimen | + + | Blood | + + + + + + + | Performing | Address | City/State/Zipcode | Phone Number | | Organization | | | | + + + + + | [facility] | [address] | [place] [address] | [phone] | + + + + + Comprehensive [...] W | | | | | | [facility], | | | | | | [place] [address] | | | | + + + + + + + + | Specimen | + + | Blood | + + + + + + + | Performing | Address | City/State/Zipcode | Phone Number | | Organization | | | | + + + + + | [facility] | [address] | [place] [address] | [phone] | + + + + + Iron, Total (04/07/2019 5:02 AM PST) + + + + + + | Component | Value | Ref Range | Performed | Pathologist | | | | | At | Signature | + + + + + + | Iron | 23 (L)Comment: Testing | 45 - 190 ug/dL | [facility] | | | | performed at [facility], [address] | | LABORATORY | | | | [address], | | | | | | [place] [address] | | | | + + + + + + + + | Specimen | + + | Blood | + + + + + + + | Performing | Address | City/State/Zipcode | Phone Number | | Organization | | | | + + + + + | [facility] | [address] | [place] [address] | [phone] | + + + + + POC [...] | | | POC | performed at [facility];[address] | | LABORATORY | | | | [address];[place], [place] | | | | | | [address] | | | | + + + + + + + + | Specimen | + + | | + + + + + + + | Performing | Address | City/State/Zipcode | Phone Number | | Organization | | | | + + + + + | [facility] | [address] | [place] [address] | [phone] | + + + + + POC Glucose (04/06/2019 4:29 PM PST) + + + + + + | Component | Value | Ref Range | Performed | Pathologist | | | | | At | Signature | + + + + + + | Glucose, | 173 (H)Comment: Testing | 65 - 99 mg/dL | [facility] | | | POC | performed at [facility];[address] | | LABORATORY | | | | [address];[place] | | | | | | [address] | | | | + + + + + + + + | Specimen | + + | | + + + + + + + | Performing | Address | City/State/Zipcode | Phone Number | | Organization | | | | + + + + + | [facility] | [address] | [place] [address] | [phone] | + + + + + Culture, [...] | | LABORATORY | | | | Blvd;[place] [address] | | | | + + [...] RESULT | Testing performed at | | [facility] | | | | [facility], [address] | | LABORATORY | | | | [place], [place] | | | | | | [id number]: Testing | | | | | | performed at [facility], [address] | | | | | [address] [place], [place] | | | | | | [address] | | | | + + + + + + + + | Specimen | + + | Body Fluid - Entire | | heel (body | | structure) | + + + + + + + | Performing | Address | City/State/Zipcode | Phone Number | | Organization | | | | + + + + + | [facility] | [address] | [place] [address] | [phone] | + + + + + Culture, [...] LABORATORY | | | | [address]vd;[place] [address] | | | | + + + [...] Comment: Testing | | | performed at [facility], | | | [address], | | | [place] [address] | +---+ + + + + + + | Performing | Address | City/State/Zipcode | Phone Number | | Organization | | | | + + + + + | [facility] | [address] | [place] [address] | [phone] | + + + + + Ferritin (04/06/2019 2:30 PM PST) + + + + + + | Component | Value | Ref Range | Performed | Pathologist | | | | | At | Signature | + + + + + + | Ferritin | 62Comment: Testing | 11 - 450 ng/mL | [facility] | | | | performed at [facility], [address] | | LABORATORY | | | | [address], | | | | | | [place] [address] | | | | + + + + + + + + | Specimen | + + | Blood | + + + + + + + | Performing | Address | City/State/Zipcode | Phone Number | | Organization | | | | + + + + + | [facility] | [address] | [place] [address] | [phone] | + + + + + Vitamin [...] | 12.3Comment: Testing | >5.4 ng/mL | [facility] | | | | performed at [facility], [address] | | LABORATORY | | | | [address], | | | | | | [place] [address] | | | | + + + + + + + + | Specimen | + + | Blood | + + + + + + + | Performing | Address | City/State/Zipcode | Phone Number | | Organization | | | | + + + + + | [facility] | [address] | [place] [address] | [phone] | + + + + + Troponin I (04/06/2019 2:30 PM PST) + + + + + + | Component | Value | Ref Range | Performed | Pathologist | | | | | At | Signature | + + + + + + | Troponin I | 0.161 (H)Comment: 0.04 | 0.00 - 0.04 | [facility] | | | | ng/mL or less [...] at | | | | | | [facility];[address] | | | | | | [facility];[place] [address] | | | | + + + + + + + + | Specimen | + + | Blood | + + + + + + + | Performing | Address | City/State/Zipcode | Phone Number | | Organization | | | | + + + + + | [facility] | [address] | [place] [address] | [phone] | + + + + + POC Glucose (04/06/2019 11:28 AM PST) + + + + + + | Component | Value | Ref Range | Performed | Pathologist | | | | | At | Signature | + + + + + + | Glucose, | 175 (H)Comment: Testing | 65 - 99 mg/dL | [facility] | | | POC | performed at [facility];[address] | | LABORATORY | | | | [address];[place], [place] | | | | | | [address] | | | | + + + + + + + + | Specimen | + + | | + + + + + + + | Performing | Address | City/State/Zipcode | Phone Number | | Organization | | | | + + + + + | [facility] | [address] | [place] [address] | [phone] | + + + + + VAS [...] | | | POC | performed at [facility];[address] | | LABORATORY | | | | [address];[place], [place] | | | | | | [address] | | | | + + + + + + + + | Specimen | + + | | + + + + + + + | Performing | Address | City/State/Zipcode | Phone Number | | Organization | | | | + + + + + | [facility] | [address] | [place] [address] | [phone] | + + + + + Troponin [...] at | | | | | | [facility];[address] | | | | | | [facility];[place] [address] | | | | + + + + + + + + | Specimen | + + | Blood | + + + + + + + | Performing | Address | City/State/Zipcode | Phone Number | | Organization | | | | + + + + + | [facility] | [address] | [place] [address] | [phone] | + + + + + XR [...] LABORATORY | | | | [address];[place] [address] | | | | + + + [...] [place] | | | | | | [address]Nqsjbnb: Testing | | | | | | performed at [facility], [address] | | | | | [address], [place], [place] | | | | | | [address] | | | | + + + + + + + + | Specimen | + + | Blood - Peripheral | | blood specimen | | (specimen) | + + + + + + + | Performing | Address | City/State/Zipcode | Phone Number | | Organization | | | | + + + + + | [facility] | [address] | [place] [address] | [phone] | + + + + + Culture, [...] LABORATORY | | | | Blvd;[place] [address] | | | | + + + + + + | RESULT | NO GROWTH 6 DAYS | | [facility] | | | | | | LABORATORY | | + + + + + + | RESULT | Testing performed at | | [facility] | | | | [facility], [address] | | LABORATORY | | | | [place], [place] | | | | | | [id number]: Testing | | | | | | performed at [facility], [address] | | | | | | [address], [place], [place] | | | | | | [address] | | | | + + + + + + + + | Specimen | + + | Blood - Peripheral | | blood specimen | | (specimen) | + + + + + + + | Performing | Address | City/State/Zipcode | Phone Number | | Organization | | | | + + + + + | [facility] | [address] | [place] [address] | [phone] | + + + + + B [...] | | LABORATORY | | | | [facility];[address] [facility] | | | | | | Blvd;[place] [address] | | | | + + + + + + + + | Specimen | + + | | + + + + + + + | Performing | Address | City/State/Zipcode | Phone Number | | Organization | | | | + + + + + | [facility] | [address] | [place] [address] | [phone] | + + + + + Lipid [...] | | | Calculated | performed at [facility], [address] | | LABORATORY | | | | [address], | | | | | | [place] [address] | | | | + + + + + + + + | Specimen | + + | Blood | + + + + + + + | Performing | Address | City/State/Zipcode | Phone Number | | Organization | | | | + + + + + | [facility] | [address] | [place] [address] | [phone] | + + + + + Hemoglobin A1C (04/06/2019 2:48 AM PST) + + + + + + | Component | Value | Ref Range | Performed | Pathologist | | | | | At | Signature | + + + + + + | Hemoglobin | 7.8 (H)Comment: HbA1c | 4.0 - 6.0 % | [facility] | | | A1c | method is [...] | 177 (H)Comment: | <154 mg/dL | [facility] | | | Average | Estimated Average | | LAB[facility]ORY | | | Glucose | Glucose calculated from | | | | | | hemoglobin A1c by use of | | | | | | the ADArecommended | | | | | | formula.Testing | | | | | | performed at [facility], [address] | | | | | [facility], | | | | | | [place] [address] | | | | + + + + + + + + | Specimen | + + | Blood | + + + + + + + | Performing | Address | City/State/Zipcode | Phone Number | | Organization | | | | + + + + + | [facility] | [address] | [place] [address] | [phone] | + + + + + Magnesium (04/06/2019 2:48 AM PST) + + + + + + | Component | Value | Ref Range | Performed | Pathologist | | | | | At | Signature | + + + + + + | Magnesium | 1.4 (L)Comment: Testing | 1.7 - 2.4 mg/dL | [facility] | | | | performed at [facility], [address] | | LABORATORY | | | | [address], | | | | | | [place] [address] | | | | + + + + + + + + | Specimen | + + | Blood | + + + + + + + | Performing | Address | City/State/Zipcode | Phone Number | | Organization | | | | + + + + + | [facility] | [address] | [place] [address] | [phone] | + + + + + Comprehensive [...] | | | | | performed at [facility], [address] | | | | | | [facility], | | | | | | [place] [address] | | | | + + + + + + + + | Specimen | + + | Blood | + + + + + + + | Performing | Address | City/State/Zipcode | Phone Number | | Organization | | | | + + + + + | [facility] [facility] | [address] | [place] [address] | [phone] | + + + + + CBC [...] | | | | | | at [facility];[address];[place] [address] | | | | | |NORMAL PLT MORPH | | | | | |Testing performed at [facility];[address];[place] [address] | | | | | | | | | | + + + + + + + + | Specimen | + + | Blood | + + + + + + + | Performing | Address | City/State/Zipcode | Phone Number | | Organization | | | | + + + + + | [facility] | [address] | [place] [address] | [phone] | + + + + + Protime INR (04/06/2019 2:48 AM PST) + + + + + + | Component | Value | Ref Range | Performed | Pathologist | | | | | At | Signature | + + + + + + | INR | 1.2Comment: REFERENCE | | [facility] | | | | RANGE:0.9 - 1.2 [...] | | | | | performed at [facility];[address];[place] | | | | | | [address] | | | | + + + + + + + + | Specimen | + + | Blood | + + + + + + + | Performing | Address | City/State/Zipcode | Phone Number | | Organization | | | | + + + + + | [facility] | [address] | [place] [address] | [phone] | + + + + + PTT (04/06/2019 2:48 AM PST) + + + + + + | Component | Value | Ref Range | Performed | Pathologist | | | | | At | Signature | + + + + + + | PTT | 34 (H)Comment: Testing | 23 - 32 seconds | IDA | | | | performed at [facility];[address] | [address] | | | | [address];[place] | | | | | | [address] | | | | + + + + + + + + | Specimen | + + | Blood | + + + + + + + | Performing | Address | City/State/Zipcode | Phone Number | | Organization | | | | + + + + + | [facility] | [address] | [place] [address] | [phone] | + + + + + Troponin I (04/06/2019 2:48 AM PST) + + + + + + | Component | Value | Ref Range | Performed | Pathologist | | | | | At | Signature | + + + + + + | Troponin I | 0.198 (H)Comment: 0.04 | 0.00 - 0.04 | [facility] | | | | ng/mL or less [...] at | | | | | | [facility];[address] | | | | | | [address];[place] [address] | | | | + + + + + + + + | Specimen | + + | Blood | + + + + + + + | Performing | Address | City/State/Zipcode | Phone Number | | Organization | | | | + + + + + | [facility] | [address] | [place] [address] | [phone] | + + + + + documented [...] | | | | | dose on [facility] 04/12/19 at 0900 | | AM [...] | | | | | | longer, [id number]-adn-isjcp use of | | | | | [...] | | | | | | | 4108-0754 Use NIGHT DOSE for | | | | | | | doses scheduled: HS, 3AM, | | | | | | | Nighttime 8974-0751 If the BG is | | | [...] PRN, Sore Throat, | | | Starting [facility] 04/12/19 at 2120 | | + [...] | | | | | discussed with [facility]. Thank you. | | | | [...]
--- OUTSIDE RECORDS SUMMARY | ~2019-08-08 | XMS | Encounter Summary ---
Demographics + + + | Address | [address] | | | [place] [address] | + + + | Home Phone | | + + + | Preferred Language | Unknown | + + + | Marital Status | | + + + | Mormonism Affiliation | [id number] | + + + [...] + | Jessica Shepard | ECON | [address] | | | | | [place] | | | | | [address] | | + + + + + | Bel Solis | ECON | Unknown | | + + + + + Care Team Providers + +------+ + | Care Academic Support Assistant Name | Role | Phone | + +------+ + | Jamar Manuel MD | PCP | | + +------+ + Encounter Details +--------+---------+ + + + | Date | Type | Department | Care Team | Description | +--------+---------+ + + + | 04/18/ | Surgery | [facility] | Gianluca Robbins MD | [facility] | | 2019 | | [facility] | [address] | FEMORAL-TIBIAL | | | | OPERATING ROOM [address] | [place], [place] | | | | | [address] | [address] | | | | | [place], [place] | | | | | | [address] | | | | | | [phone] | | | +--------+---------+ + + + [...] 04/21/2019 Treatment Team: Lior Trujillo MD; Aleksander Monitel MD; Simba Cheng MD; Ambrosio Barreto MD; [...] other chronic comorbidities who pre sents to [facility] ER on 04/06 for shortness of breath admitted with 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 The patient was admitted to regular medical floor and started on optimal medical management . On-call converter skimmer (Dr. Ruelas) recommended continued medical management. Patient [...] inferior defect with partial improvement at rest ware tester was i nformed by hospitalist colleague recommended [...] their primary care provider within 1 w comanche after discharge, follow-up with ID in 2 weeks after discharge, follow-up with vascular s urgery as per their recommendations or otherwise within 2 weeks after discharge. The patien t will need to follow-up with his outpatient converter skimmer within 1 to 2 weeks after discharg [...] Results Results Reviewed. [facility] Information[facility] [address] [facility] [phone] Bhanu Seaman PA-C [address] [place] [facility] [address] In 2 weeks Jamar Manuel MD [address] [place] [address] Schedule an appointment as soon as possible for a visit in 1 week Hero Gaston MD [address] [facility] [address] Schedule an appointment as soon as possible for a visit in 2 weeks Post hospital discharge follow-up Dr. [place] Ruelas [address] [facility] [address] [facility] [address] Schedule an appointment as soon [...] mg per tablet aka: NORCO . Disposition: snf Condition: Stable Code Status: Full Code Discharge [...] numbness Complications from anesthesia Date Last Reviewed: 08/20/201519993856-70[address] [employer] [place] [id number]. All righ ts reserved. This information is [...] Wakefield PA-C - 04/21/2019 8:21 AM PST [facility] Service: Vascular Surgery Progress Note SUBJECTIVE Patient Summary: 74 y.o. man with complex medical issues and LE ischemic ulcers, he wa s recently admitted to the [facility] from 03/28/19 to 04/04/19 where he was treated/ diagnosed with systolic heart failure, type 2 FL/NSTEMI, SHAE, ARF. O2 desaturation brought him from SNF to [facility] and current admission today with CHF and [...] Anaya RN - 04/20/2019 4:40 PM PST [facility] Service: Wound Care Follow Up [...] Primary Wound Type: Diabetic Ulcer Side: Left Zamora ation: lateral Location: foot Wound Subtype: ulceration, [...] M D - 04/20/2019 2:16 PM PST [facility] Service: Hospitalist Progress Note Pt: [...] encounter as of 04/20/19-14:16 IMAGING: Reviewed in [facility], no new results. PROBLEM LIST Principal [...] with augmentin, now readmitted on 04/06 at [facility] and started on rocephin after [...] SQH Code status: Full Dispo: back to [facility] pending recovery from vascular bypass [...] Sunshine Love, PharmD, [facility] 04/20/19 1:52 PM Nandini Sánchez se, MD - 04/20/2019 8:56 AM PST [facility] Service: Infectious Diseases Progress Note [...] Component Value Units Date/Time Culture, Wound, Superficial [[id number]] (Abnormal) (Susceptibility) Collected: 04/06/191545 Order Status: Completed Lab Status: Final result Updated: 04/11/19 0728 Specimen: Body Fluid from Heel, Right Special Requests LT FOOT Special Requests Testing performed at [facility];[address] [place] [address] RESULT -- 1+ ENTEROCOCCUS FAECALIS Aminoglycosides (except [...] Sensitive SUSCEPTIBLE JESSICA Final Testing performed at [facility], [address] [place] [address] Culture, Wound, Superficial [[id number]] Collected: 04/06/191545 Order Status: Completed Lab Status: Final result Updated: 04/08/19 0937 Specimen: Body Fluid from Heel, Right Special Requests RIGHT FOOT Special Requests Testing performed at [facility];[address] [place] [address] RESULT -- 1+ NORMAL SKIN CELSA ISOLATED RESULT NO FURTHER WORKUP RESULT Testing performed at [facility], [address] [place] [address] Comment: Testing performed at [facility], [address] [place] [address] Microbiology Results (72 hrs) No results found [...] assisting with dosing and monitorization. Discussed with window caser regarding OPAT. Discussed with window caser regarding discharge planning. Dr. Dolan will take over ID service tomorrow. Please call if questions. Hero Richardson MD, MPH Infectious Diseases 04/20/19 ubbard, Sheila Diallo RN - 04/19/2019 7:20 PM PSTEnd of shift chart check complete. Sheila Cabrera RN unshine Love, [facility] - 04/19/2019 3:23 PM PSTFormatting of this note might be different from the teryr l. Vancomycin Dosing Per Pharmacy Subjective/Objective Reagan [...] Shaver MD - 04/19/2019 2:46 PM PST [facility] Service: Hospitalist Progress Note Pt: Reagan Shepard AGE/SEX: 74 y.o. male ROOM: [facility]/9119- : 1945 PCP: Jamar Manuel MD ADMIT [...] with augmentin, now readmitted on 04/06 at [facility] and started on rocephin after [...] SQH Code status: Full Dispo: back to [facility] pending recovery from vascular bypass surgery, final ID recs , tentatively planning for ~04/21 Grover Charles MD 2:46 PM 04/19/2019 Portions of this chart may have been copied from previous notes for continuity of care purp ose Hero Sánchez MD - 04/19/2019 9:53 AM PSTFormatting of this note might be different from the [facility] Service: Infectious Diseases Progress Note [...] Component Value Units Date/Time Culture, Wound, Superficial [[id number]] (Abnormal) (Susceptibility) Collected: 04/06/19 1546 Order Status: Completed Lab Status: Final result Updated: 04/11/19 0728 Specimen: Body Fluid from Heel, Right Special Requests LT FOOT Special Requests Testing performed at [facility];[address] [place] [address];[place] [address] RESULT -- 1+ ENTEROCOCCUS FAECALIS Aminoglycosides (except [...] Sensitive SUSCEPTIBLE JESSICA Final Testing performed at [facility], [address] [place] [address] Culture, Wound, Superficial [[id number]] Collected: 04/06/19 1546 Order Status: Completed Lab Status: Final result Updated: 04/08/1937 Specimen: Body Fluid from Heel, Right Special Requests RIGHT FOOT Special Requests Testing performed at [facility];[address] [place] [address] RESULT -- 1+ NORMAL SKIN CELSA ISOLATED RESULT NO FURTHER WORKUP RESULT Testing performed at [facility], [address] [place] [address] Comment: Testing performed at [facility], [address] [place] [address] Culture, Blood [[id number]] Collected: 04/06/198 Order Status: Completed Lab Status: Final result Updated: 04/12/19 0652 Specimen: Peripheral Blood Special Requests R WRIST Special Requests Testing performed at [facility];[address] [place] [address] RESULT NO GROWTH 6 DAYS RESULT Testing performed at [facility], [address] [place] [address] Comment: Testing performed at [facility], [address] [place] [address] Culture, Blood [[id number]] Collected: 04/06/19330 Order Status: Completed Lab Status: Final result Updated: 04/12/1952 Specimen: Peripheral Blood Special Requests L WRIST Special Requests Testing performed at [facility];[address] [place] [address] RESULT NO GROWTH 6 DAYS RESULT Testing performed at [facility], [address] [place] [address] Comment: Testing performed at [facility], [address] [place] [address] Microbiology Results (72 hrs) No results found [...] might be different from the o riginal. [facility] Service: Vascular Surgery Progress Note SUBJECTIVE Patient Summary: 74 y.o. man with complex medical issues and LE ischemic ulcers, he wa s recently admitted to the [facility] from 03/28/19 to 04/04/19 where he was treated/ diagnosed with systolic heart failure, type 2 FL/NSTEMI, SHAE, ARF. O2 desaturation brought him from SNF to [facility] and current admission today with CHF and [...] Rachel Altamirano RN - 04/19/2019 5:46 AM [id number] left foot dressing change complete per order. [...] Grover Shaver MD - 4:52 PM PST [facility] Service: Hospitalist Progress Note Pt: Reagan Shepard AGE/SEX: 74 y.o. male ROOM: [facility] OR INTRA OP POOL/[facility]* : 1945 PCP: Jamar Manuel MD ADMIT [...] the last 72 hours. IMAGING: Reviewed in [facility], no new results. PROBLEM LIST Principal [...] with augmentin, now readmitted on 04/06 at [facility] and started on rocephin after [...] SQH Code status: Full Dispo: back to [facility] pending cardiac evaluation/optimization, vascular bypass [...] might be different from t kevin original. [facility] Service: Infectious Diseases Progress Note [...] Component Value Units Date/Time Culture, Wound, Superficial [[id number]] (Abnormal) (Susceptibility) Collected: 04/06/19 1546 Order Status: Completed Lab Status: Final result Updated: 04/11/19 0728 Specimen: Body Fluid from Heel, Right Special Requests LT FOOT Special Requests Testing performed at [facility];[address] [place] [address];[place] [address] RESULT -- 1+ ENTEROCOCCUS FAECALIS Aminoglycosides (except [...] Sensitive SUSCEPTIBLE JESSICA Final Testing performed at [facility], [address] [place] [address] Culture, Wound, Superficial [[id number]] Collected: 04/06/19 1546 Order Status: Completed Lab Status: Final result Updated: 04/08/19 0937 Specimen: Body Fluid from Heel, Right Special Requests RIGHT FOOT Special Requests Testing performed at [facility];[address] [place] [address] RESULT -- 1+ NORMAL SKIN CELSA ISOLATED RESULT NO FURTHER WORKUP RESULT Testing performed at [facility], [address] [place] [address] Comment: Testing performed at [facility], [address] [place] [address] Culture, Blood [[id number]] Collected: 04/06/19 0338 Order Status: Completed Lab Status: Final result Updated: 04/12/19 0652 Specimen: Peripheral Blood Special Requests R WRIST Special Requests Testing performed at [facility];[address] [place] [address] 7[address]75 RESULT NO GROWTH 6 DAYS RESULT Testing performed at [facility], [address] [place] [address] Comment: Testing performed at [facility], [address] [place] [address] Culture, Blood [[id number]] Collected: 04/06/19 0331 Order Status: Completed Lab Status: Final result Updated: 04/12/19 0652 Specimen: Peripheral Blood Special Requests L WRIST Special Requests Testing performed at [facility];[address] [place] [address] 46066 RESULT NO GROWTH 6 DAYS RESULT Testing performed at [facility], [address] [place] [address] Comment: Testing performed at [facility], [address] [place] [address] Microbiology Results (72 hrs) No results found [...] might be different from the o riginal. [facility] Service: Vascular Surgery Progress Note SUBJECTIVE Patient Summary: 74 y.o. man with complex medical issues and LE ischemic ulcers, he wa s recently admitted to the [facility] from 03/28/19 to 04/04/19 where he was treated/ diagnosed with systolic heart failure, type 2 FL/NSTEMI, SHAE, ARF. O2 desaturation brought him from SNF to [facility] and current admission today with CHF and [...] feet - [facility]. Cryovein is in house [...] Shaver MD - 04/17/2019 12:25 PM PST [facility] Service: Hospitalist Progress Note Pt: Reagan Shepard AGE/SEX: 74 y.o. male ROOM: [facility]4452-01 : 1945 PCP: Jamar Manuel MD [...] with augmentin, now readmitted on 04/06 at [facility] and started on rocephin after [...] SQH Code status: Full Dispo: back to [facility] pending cardiac evaluation/optimization, vascular bypass donna wero, final ID recs, tentatively planning for ~04/21 Grover Charles MD 12:25 PM 04/17/2019 Portions of this chart may have been copied from previous notes for continuity of care purp ose Rico Modi MD - 11:19 AM PST [facility] Service: Cardiology/[facility] Interventional cardiology note RE: Reagan [...] minimal reversib ility 2. Recent non-Q wave FL 3. Severe peripheral vascular disease 4. Diabetes [...] be different [facility] the [facility] Service: Infectious Diseases Progress Note [...] Component Value Units Date/Time Culture, Wound, Superficial [[id number]] (Abnormal) (Susceptibility) Collected: 04/06/19 1546 Order Status: Completed Lab Status: Final result Updated: 04/11/19 0728 Specimen: Body Fluid from Heel, Right Special Requests LT FOOT Special Requests Testing performed at [facility];[address] [place] [address];[place] [address] RESULT -- 1+ ENTEROCOCCUS FAECALIS Aminoglycosides (except [...] Sensitive SUSCEPTIBLE JESSICA Final Testing performed at [facility], [address] [place] [address] 90842 Culture, Wound, Superficial [[id number]] Collected: 04/06/19 1546 Order Status: Completed Lab Status: Final result Updated: 04/08/19936 Specimen: Body Fluid from Heel, Right Special Requests RIGHT FOOT Special Requests Testing performed at [facility];[address] [place] [address] 89558 RESULT -- 1+ NORMAL SKIN CELSA ISOLATED RESULT NO FURTHER WORKUP RESULT Testing performed at [facility], [address] [place] [address] Comment: Testing performed at [facility], [address] [place] [address] 85279 Culture, Blood [[id number]] Collected: 04/06/198 Order Status: Completed Lab Status: Final result Updated: 04/12/1952 Specimen: Peripheral Blood Special Requests R WRIST Special Requests Testing performed at [facility];[address] [place] [address] 55962 RESULT NO GROWTH 6 DAYS RESULT Testing performed at [facility], [address] [place] [address]562 Comment: Testing performed at [facility], [address] [place] [address] 09764 Culture, Blood [[id number]] Collected: 04/06/191 Order Status: Completed Lab Status: Final result Updated: 04/12/1952 Specimen: Peripheral Blood Special Requests L WRIST Special Requests Testing performed at [facility];[address] [place] [address] 47063 RESULT NO GROWTH 6 DAYS RESULT Testing performed at [facility], [address] [place] [address] Comment: Testing performed at [facility], [address] [place] [address]59 Microbiology Results (72 hrs) No results found [...] Follow vancomycin levels. Discussed with attending provider: Grovre Chalres MD Monitoring toxicity of iv antibiotic therapy, [...] might be different from the o riginal. [facility] Service: Vascular Surgery Progress Note SUBJECTIVE Patient Summary: 74 y.o. man with complex medical issues and LE ischemic ulcers, he wa s recently admitted to the [facility] from 03/28/19 to 04/04/19 where he was treated/ diagnosed with systolic heart failure, type 2 FL/NSTEMI, SHAE, ARF. O2 desaturation brought him from SNF to [facility] and current admission today with CHF and [...] Sánchez MD - 04/16/2019 6:49 PM PST [facility] Service: Infectious Diseases Progress Note [...] Component Value Units Date/Time Culture, Wound, Superficial [[id number]] (Abnormal) (Susceptibility) Collected: 04/06/19 1546 Order Status: Completed Lab Status: Final result Updated: 04/11/19 4928 Specimen: Body Fluid from Heel, Right Special Requests LT FOOT Special Requests Testing performed at [facility];[address] [place] [address] 11791 RESULT -- 1+ ENTEROCOCCUS FAECALIS Aminoglycosides (except [...] Sensitive SUSCEPTIBLE JESSICA Final Testing performed at [facility], [address] [place] [address] 61742 Culture, Wound, Superficial [[id number]] Collected: 04/06/19 1546 Order Status: Completed Lab Status: Final result Updated: 04/08/19 0937 Specimen: Body Fluid from Heel, Right Special Requests RIGHT FOOT Special Requests Testing performed at [facility];[address] [place] [address]405 RESULT -- 1+ NORMAL SKIN CELSA ISOLATED RESULT NO FURTHER WORKUP RESULT Testing performed at [facility], [address] [place] [address] Comment: Testing performed at [facility], [address] [place] [address] 29241 Culture, Blood [[id number]] Collected: 04/06/19 0338 Order Status: Completed Lab Status: Final result Updated: 04/12/19 0652 Specimen: Peripheral Blood Special Requests R WRIST Special Requests Testing performed at [facility];[address] [place] [address] 97506 RESULT NO GROWTH 6 DAYS RESULT Testing performed at [facility], [address] [place] [address] Comment: Testing performed at [facility], [address] [place] [address] 50681 Culture, Blood [[id number]] Collected: 04/06/19 0331 Order Status: Completed Lab Status: Final result Updated: 04/12/19 0652 Specimen: Peripheral Blood Special Requests L WRIST Special Requests Testing performed at [facility];[address] [place] [address] 99670 RESULT NO GROWTH 6 DAYS RESULT Testing performed at [facility], [address] [place] [address] Comment: Testing performed at [facility], [address] [place] [address] 86525 Microbiology Results (72 hrs) No results found [...] note might be different from the original. [facility] Service: Hospitalist Progress Note Pt: [...] 04/14/19 0629 BNP 587.58* IMAGING: Reviewed in [facility], no new results. PROBLEM LIST Principal [...] with augmentin, now readmitted on 04/06 at [facility] and started on rocephin after [...] SQH Code status: Full Dispo: back to [facility] pending cardiac evaluation/optimization, vascular bypass [...] Patient encouraged to discuss medication changes with converter skimmer rgaini stanley to stopping medications or making any changes. Patient's questions answered. Heart Fail ure Hot Line number provided to patient. Face to face time was spent with patient providing counseling and education for congestive heart failure. Bhanu Wakefield P A-C - 04/16/2019 8:43 AM PST [facility] Service: Vascular Surgery Progress Note SUBJECTIVE Patient Summary: 74 y.o. man with complex medical issues and LE ischemic ulcers, he wa s recently admitted to the [facility] from 03/28/19 to 04/04/19 where he was treated/ diagnosed with systolic heart failure, type 2 FL/NSTEMI, SHAE, ARF. O2 desaturation brought him from SNF to [facility] and current admission today with CHF and +tropo olivia. He is on IV heparin for his cardiac condition. Strep. agalactiae bacteremia, likely disseminated from patient non-healing diabetic foot ul cers. Patient currently being treated with oral Augmentin for this. Patient had undergone bedside debridement with Dr. Ceabllos (podiatry). Events Overnight: Scheduled for nuclear stress [...] MD - 04/15/2019 1 2:48 PM PST [facility] Service: Hospitalist Progress Note Pt: Reagan Shepard AGE/SEX: 74 y.o. male ROOM: [address] [place], [place] [address]- : 1945 PCP: Jamar Manuel MD ADMIT [...] 04/14/19 0629 BNP 587.58* IMAGING: Reviewed in [facility], no new results. PROBLEM LIST Principal [...] risk stratification . -cardiology consulted -NPO at [place] for nuc med stress test in morning [...] with augmentin, now readmitted on 04/06 at [facility] and started on rocephin after [...] SQH Code status: Full Dispo: back to [facility] pending cardiac evaluation/optimization, vascular bypass [...] might be differ ent from the original. [facility] Service: Infectious Diseases Progress Note [...] Component Value Units Date/Time Culture, Wound, Superficial [[id number]] (Abnormal) (Susceptibility) Collected: 04/06/191545 Order Status: Completed Lab Status: Final result Updated: 04/11/19 0728 Specimen: Body Fluid from Heel, Right Special Requests LT FOOT Special Requests Testing performed at [facility];[address] [place] [address] 17942 RESULT -- 1+ ENTEROCOCCUS FAECALIS Aminoglycosides (except [...] Resistant RESISTANT JESSICA Final Levofloxacin Sensitive SUSCEPTIBLE JSESICA Final Streptomycin synergy Sensitive SUSCEPTIBLE JESSICA Final [...] Sensitive SUSCEPTIBLE JESSICA Final Testing performed at [facility], [address] [place] [address] 02337 Culture, Wound, Superficial [[id number]] Collected: 04/06/191545 Order Status: Completed Lab Status: Final result Updated: 04/08/19 0937 Specimen: Body Fluid from Heel, Right Special Requests RIGHT FOOT Special Requests Testing performed at [facility];[address] [place] [address] 02322 RESULT -- 1+ NORMAL SKIN CELSA ISOLATED RESULT NO FURTHER WORKUP RESULT Testing performed at [facility], [address] [place] [address] Comment: Testing performed at [facility], [address] [place] [address] 51462 Culture, Blood [[id number]] Collected: 04/06/19 0338 Order Status: Completed Lab Status: Final result Updated: 04/12/1952 Specimen: Peripheral Blood Special Requests R WRIST Special Requests Testing performed at [facility];[address] [place] [address] 94804 RESULT NO GROWTH 6 DAYS RESULT Testing performed at [facility], [address] [place] [address] 95[address] Comment: Testing performed at [facility], [address] [place] [address] 56039 Culture, Blood [[id number]] Collected: 04/06/19330 Order Status: Completed Lab Status: Final result Updated: 04/12/1952 Specimen: Peripheral Blood Special Requests L WRIST Special Requests Testing performed at [facility];[address] [place] [address] 59446 RESULT NO GROWTH 6 DAYS RESULT Testing performed at [facility], [place] [address] Comment: Testing performed at [facility], [address] [place] [address] 64992 Microbiology Results (72 hrs) No results found [...] note might be different from the origin [facility] Service: Hospitalist Progress Note Pt: Reagan [...] 04/14/19 0629 BNP 587.58* IMAGING: Reviewed in [facility], no new results. PROBLEM LIST Principal [...] with augmentin, now readmitted on 04/06 at [facility] and started on rocephin after [...] H Code status: Full Dispo: back to [facility] pending improvement in gross hematuria, CHF exacerbation, re peat angiogram, final ID recs, likely 4-5 more days in hospital Grover Charles MD 1:29 PM 04/14/2019 Portions of this chart may have been copied from previous notes for continuity of care purp ose Lyric Molina RN - 04/14/2019 1:27 PM PST [facility] Service: Wound Care Follow Up [...] any additional questions. Lyric Mclain RN, CMSRN, [facility] Inpatient Wound Ostomy Care [phone] 04/14/2019 1:29 PM Dheeraj Barraza, PT - [...] Shaver MD - 04/13/2019 4:02 PM PST [facility] Service: Hospitalist Progress Note Pt: Reagan Shepard AGE/SEX: 74 y.o. male ROOM: [facility]2/4452-01 : 1945 PCP: Jamar Manuel MD ADMIT [...] the last 168 hours. IMAGING: Reviewed in [facility], no new results. PROBLEM LIST Principal [...] with augmentin, now readmitted on 04/06 at [facility] and started on rocephin after [...] with age appropriate cancer screening PPx: [facility] Code status: Full Dispo: back to [facility] pending improvement in gross hematuria, [...] 113.3 kg Adjusted body weight: 89.1 kg [place] body weight: 73 kg Current Vital Signs: [...] [facility] Drawing a level once the patient [...] se, MD - 04/13/2019 10:54 AM PST [facility] Service: Infectious Diseases Progress Note [...] Component Value Units Date/Time Culture, Wound, Superficial [[id number]] (Abnormal) (Susceptibility) Collected: 04/06/19 1546 Order Status: Completed Lab Status: Final result Updated: 04/11/19 0728 Specimen: Body Fluid from Heel, Right Special Requests LT FOOT Special Requests Testing performed at [facility];[address] [place] [address];[place] [address] RESULT -- 1+ ENTEROCOCCUS FAECALIS Aminoglycosides (except [...] Sensitive SUSCEPTIBLE JESSICA Final Testing performed at [facility], [address] [place] [address] 13427 Culture, Wound, Superficial [[id number]] Collected: 04/06/19 1546 Order Status: Completed Lab Status: Final result Updated: 04/08/19936 Specimen: Body Fluid from Heel, Right Special Requests RIGHT FOOT Special Requests Testing performed at [facility];[address] [place] [address] 52607 RESULT -- 1+ NORMAL SKIN CELSA ISOLATED RESULT NO FURTHER WORKUP RESULT Testing performed at [facility], [address] [place] [address] 96169 Comment: Testing performed at [facility], [address] [place] [address] 77407 Culture, Blood [[id number]] Collected: 04/06/198 Order Status: Completed Lab Status: Final result Updated: 04/12/19651 Specimen: Peripheral Blood Special Requests R WRIST Special Requests Testing performed at [facility];[address] [place] [address] 28728 RESULT NO GROWTH 6 DAYS RESULT Testing performed at [facility], [address] [place] [address] 59454 Comment: Testing performed at [facility], [address] [place] [address] 08205 Culture, Blood [[id number]] Collected: 04/06/19 033 Order Status: Completed Lab Status: Final result Updated: 04/12/19651 Specimen: Peripheral Blood Special Requests L WRIST Special Requests Testing performed at [facility];[address] [place] [address] 69964 RESULT NO GROWTH 6 DAYS RESULT Testing performed at [facility], [address] [place] [address] 29007 Comment: Testing performed at [facility], [address] [place] [address] 51597 Microbiology Results (72 hrs) No results found [...] might be different from the o riginal. [facility] Service: Vascular Surgery Progress Note SUBJECTIVE Patient Summary: 74 y.o. man with complex medical issues and LE ischemic ulcers, he wa s recently admitted to the [facility] from 03/28/19 to 04/04/19 where he was treated/ diagnosed with systolic heart failure, type 2 FL/NSTEMI, SHAE, ARF. O2 desaturation brought him from SNF to [facility] and current admission today with CHF and [...] risks. Signed consent obtained. Will proceed to [facility] [employer] today for right leg angiogram. Moderate [...] might be different from the o riginal. [facility] Service: Infectious Diseases Progress Note [...] Component Value Units Date/Time Culture, Wound, Superficial [[id number]] (Abnormal) (Susceptibility) Collected: 04/06/19 1546 Order Status: Completed Lab Status: Final result Updated: 04/11/19 0728 Specimen: Body Fluid from Heel, Right Special Requests LT FOOT Special Requests Testing performed at [facility];[address] [place] [address] 60236 RESULT -- 1+ ENTEROCOCCUS FAECALIS Aminoglycosides (except [...] Sensitive SUSCEPTIBLE JESSICA Final Testing performed at [facility], [address] [place] [address] 38598 Culture, Wound, Superficial [[id number]] Collected: 04/06/19 1546 Order Status: Completed Lab Status: Final result Updated: 04/08/19 0937 Specimen: Body Fluid from Heel, Right Special Requests RIGHT FOOT Special Requests Testing performed at [facility];[address] [place] [address] 82169 RESULT -- 1+ NORMAL SKIN CELSA ISOLATED RESULT NO FURTHER WORKUP RESULT Testing performed at [facility], [address] [place] [address] Comment: Testing performed at [facility], [address] [place] [address] 09281 Culture, Blood [[id number]] Collected: 04/06/19 0338 Order Status: Completed Lab Status: Final result Updated: 04/12/19 0652 Specimen: Peripheral Blood Special Requests R WRIST Special Requests Testing performed at [facility];[address] [place] [address] 70874 RESULT NO GROWTH 6 DAYS RESULT Testing performed at [facility], [address] [place] [address] Comment: Testing performed at [facility], [address] [place] [address] 65402 Culture, Blood [[id number]] Collected: 04/06/19 0331 Order Status: Completed Lab Status: Final result Updated: 04/12/1952 Specimen: Peripheral Blood Special Requests L WRIST Special Requests Testing performed at [facility];[address] [place] [address] 94028 RESULT NO GROWTH 6 DAYS RESULT Testing performed at [facility], [address] [place] [address] Comment: Testing performed at [facility], [address] [place] [address] 38440 Microbiology Results (72 hrs) No results found [...] this note might be different from the [facility] Service: Hospitalist Progress [...] with augmentin, now readmitted on 04/06 at [facility] and started on rocephin after [...] H Code status: Full Dispo: back to [facility] pending improvement in gross hematuria, CHF exacerbation, re peat angiogram, final ID recs, likely 4-5 more days in hospital Grover Charles MD 4:43 PM 04/12/2019 Portions of this chart may have been copied from previous notes for continuity of care purp ose Bhanu Wakefield PA-C - 04/12/2019 4:00 PM PST [facility] Service: Vascular Surgery Progress Note SUBJECTIVE Patient Summary: 74 y.o. man with complex medical issues and LE ischemic ulcers, he wa s recently admitted to the [facility] from 03/28/19 to 04/04/19 where he was treated/ diagnosed with systolic heart failure, type 2 FL/NSTEMI, SHAE, ARF. O2 desaturation brought him from SNF to [facility] and current admission today with CHF and [...] Bhanu Seaman PA-C Vascular Surgery Sunshine Chen, [facility] - 04/12/2019 12:27 PM PST Vancomycin Dosing Per Pharmacy Subjective/Objective Reagan Shepard is a 74 y.o. 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 Additional antimicrobials: zosyn Quadriplegic/Paraplegic: no Diabetes: yes Baseline Serum Creatinine: 0.6 mg/dL Actual weight: 113.3 kg Adjusted body weight: 89.1 kg [place] body weight: 73 kg Current Vital Signs: [...] Sunshine Love, PharmD[facility]12/[facility] 3:27 PM Grover Shaver MD - 04/11/2019 5:06 PM PST [facility] Service: Hospitalist Progress Note Pt: [...] INR 1.2 PTT 34* IMAGING: Reviewed in [facility], no new results. PROBLEM LIST Principal [...] with augmentin, now readmitted on 04/06 at [facility] and started on rocephin after [...] above) Code status: Full Dispo: back to [facility] pending improvement in gross hematuria [...] 113.3 kg Adjusted body weight: 89.1 kg [place] body weight: 73 kg Current Vital Signs: [...] nomogram, current renal function, and desired trough. [facility] ed on patient history, vancomycin 1250 mg [...] therapy as indicated. Thank You, Sheila Ahuja, [facility], 04/11/2019, 1:51 PM Hero Sánchez MD - 04/11/2019 10:09 AM PSTFormatting of this note might be different from stephanie brown original. [facility] Service: Infectious Diseases Progress Note [...] Component Value Units Date/Time Culture, Wound, Superficial [[id number]] (Abnormal) (Susceptibility) Collected: 04/06/19 1546 Order Status: Completed Lab Status: Final result Updated: 04/11/1928 Specimen: Body Fluid from Heel, Right Special Requests LT FOOT Special Requests Testing performed at [facility];[address] [place] [address];[place] [address] RESULT -- 1+ ENTEROCOCCUS FAECALIS Aminoglycosides (except [...] Sensitive SUSCEPTIBLE JSESICA Final Testing performed at [facility], [address] [place] [address], [place] [address] Culture, Wound, Superficial [[id number]] Collected: 04/06/19 1546 Order Status: Completed Lab Status: Final result Updated: 04/08/19 0937 Specimen: Body Fluid from Heel, Right Special Requests RIGHT FOOT Special Requests Testing performed at [facility];[address] [place] [address] 49366 RESULT -- 1+ NORMAL SKIN CELSA ISOLATED RESULT NO FURTHER WORKUP RESULT Testing performed at [facility], [address] [place] [address] 96463 Comment: Testing performed at [facility], [address] [place] [address] 07456 Culture, Blood [[id number]] Collected: 04/06/19 0338 Order Status: Completed Lab Status: Preliminary result Updated: 04/07/19 0813 Specimen: Peripheral Blood Special Requests R WRIST Special Requests Testing performed at [facility];[address] [place] [address] 07507 RESULT NO GROWTH AT THIS TIME RESULT Testing performed at [facility], [address] [place] [address] 81503 Comment: Testing performed at [facility], [address] [place] [address] 79795 Culture, Blood [[id number]] Collected: 04/06/19 0331 Order Status: Completed Lab Status: Preliminary result Updated: 04/07/19 0813 Specimen: Peripheral Blood Special Requests L WRIST Special Requests Testing performed at [facility];[address] [place] [address] 73242 RESULT NO GROWTH AT THIS TIME RESULT Testing performed at [facility], [address] [place] [address]91 Comment: Testing performed at [facility], [address] [place] [address] 79285 Microbiology Results (72 hrs) No results found [...] Shaver MD - 04/10/2019 4:51 PM PST [facility] Service: Hospitalist Progress Note Pt: Reagan Shpeard AGE/SEX: 74 y.o. male ROOM: [facility]/4452-01 : 1945 PCP: Jamar Manuel MD ADMIT [...] INR 1.2 PTT 34* IMAGING: Reviewed in [facility], no new results. PROBLEM LIST Principal [...] with augmentin, now readmitted on 04/06 at [facility] and started on rocephin after [...] above) Code status: Full Dispo: back to [facility] pending improvement in gross hematuria [...] Component Value Units Date/Time Culture, Wound, Superficial [[id number]] (Abnormal) (Susceptibility) Collected: 04/06/191545 Order Status: Completed Lab Status: Preliminary result Updated: 04/10/19 0994 Specimen: Body Fluid from Heel, Right Special Requests LT FOOT Special Requests Testing performed at [facility];[address] [place] [address];[place] [address] RESULT -- 1+ ENTEROCOCCUS FAECALIS Aminoglycosides (except for high-level resistance testing), cephalosporins, clindamycin, an d trimethoprim-sulfamethoxazole may appear active in vitro but they are not effective clinic ally. RESULT -- 1+ ENTEROBACTER CLOACAE COMPLEX RESULT -- 1+ STAPHYLOCOCCUS AUREUS RESULT SUSCEPTIBILITY TO FOLLOW RESULT Testing performed at [facility], [address] [place] [address] Susceptibility Enterococcus faecalis (1) Antibiotic Interpretation Microscan [...] Sensitive SUSCEPTIBLE JESSICA Preliminary Testing performed at [facility], [address] [place] [address] 30412 Culture, Wound, Superficial [[id number]] Collected: 04/06/191545 Order Status: Completed Lab Status: Final result Updated: 04/08/19936 Specimen: Body Fluid from Heel, Right Special Requests RIGHT FOOT Special Requests Testing performed at [facility];[address] [place] [address] 97720 RESULT -- 1+ NORMAL SKIN CELSA ISOLATED RESULT NO FURTHER WORKUP RESULT Testing performed at [facility], [address] [place] [address] 98501 Comment: Testing performed at [facility], [address] [place] [address] 46499 Culture, Blood [[id number]] Collected: 04/06/19337 Order Status: Completed Lab Status: Preliminary result Updated: 04/07/19812 Specimen: Peripheral Blood Special Requests R WRIST Special Requests Testing performed at [facility];[address] [place] [address] 98429 RESULT NO GROWTH AT THIS TIME RESULT Testing performed at [facility], [address] [place] [address] 40268 Comment: Testing performed at [facility], [address] [place] [address] 69106 Culture, Blood [[id number]] Collected: 04/06/19330 Order Status: Completed Lab Status: Preliminary result Updated: 04/07/19812 Specimen: Peripheral Blood Special Requests L WRIST Special Requests Testing performed at [facility];[address] [place] [address] 99773 RESULT NO GROWTH AT THIS TIME RESULT Testing performed at [facility], [address] [place] [address] 59425 Comment: Testing performed at [facility], [address] [place] [address] 94565 Microbiology Results (72 hrs) No results found [...] might be different from the ramiro melyssa. [facility] Service: Urology Progress Note Hospital [...] of congestive failure. Signed by: Madison Solis [facility] Sign Date/Time: 04/09/2019 9:25 AM US [...] essential h ypertension, insulin-dependent diabetes, history of FL, GERD, ischemic stroke, diffuse signi ficant peripheral [...] Lujan MD - 04/09/2019 6:21 PM PST [facility] Service: Urology Progress Note Hospital [...] hypertension, hyperkalemia, history of GERD and non-STEMI FL, history of bacteremia, histo ry of stroke. [...] Color, UA STRAW Clarity, UA CLEAR Specific [place], Urine 1.006 1.002 - 1.030 Leukocyte esterase, [...] this note might be different from the [facility] Service: Vascular Surgery Progress Note SUBJECTIVE Patient Summary: 74 y.o. man with complex medical issues and LE ischemic ulcers, he wa s recently admitted to the [facility] from 03/28/19 to 04/04/19 where he was treated/ diagnosed with systolic heart failure, type 2 FL/NSTEMI, SHAE, ARF. O2 desaturation brought him from SNF to [facility] and current admission today with CHF and [...] will have him scheduled for 04/12/2019 at [facility] [employer] for his first leg, then will [...] Hospitalist Progress Note Reagan Shepard 74 y.o. [id number] male Jamar Manuel MD Hospital Day: LOS: 3 days Patient Summary: 74-year-old gentleman with past medical history of bilateral nonheali ng diabetic foot ulcer, and history of traumatic brain injury, stroke, diabetes mellitus typ e 2 insulin-dependent who was recently admitted to [facility] from 03/28/21 020 with acute hypoxic respiratory failure secondary to systolic CHF exacerbation with eject ion fraction of 40%, CTA chest negative for PE, troponin was minimally elevated 0.44 treated conservatively with medical therapy discharge to [facility] who went back to [facility] emergency department with worsening shortness [...] 04/09/2019 1044 Gross per 24 hour Intake 19614 ml Output 9850 ml Net 856 ml [...] received 8 days of IV antibiotic at [facility] discharged home on on Augmentin readmitted on at [facility] and started on Rocephin after sending [...] might be different from the o riginal. [facility] Service: Podiatry Progress Note Hospital Day: LOS: 3 days Post-Op Day: * No surgery found * SUBJECTIVE Patient Summary: The patient is 74 y.o. male with significant cardiac and IDDM2 past medical history with recent admissions to [facility] where he was found to have el evated troponin level and he became decompensated and desaturated and was transferred to [facility] for a higher level of care. Although [...] intervention is needed/indicated. Code Status: Full Code uDong Ramírez DPM 04/09/2019 Ady Mata RN - 04/08/2019 9:49 PM [id number]: pt a/o to all, vss. cbi in [...] Hospitalist Progress Note Reagan Shepard 74 y.o. [id number] male Jamar Manuel MD Hospital Day: LOS: 2 days Patient Summary: 74-year-old gentleman with past medical history of bilateral nonheali ng diabetic foot ulcer, and history of traumatic brain injury, stroke, diabetes mellitus typ e 2 insulin-dependent who was recently admitted to [facility] from 03/28/21 020 with acute hypoxic respiratory failure secondary to systolic CHF exacerbation with eject ion fraction of 40%, CTA chest negative for PE, troponin was minimally elevated 0.44 treated conservatively with medical therapy discharge to [facility] who went back to [facility] emergency department with worsening shortness [...] results found for: POCTEMP, POCFIO2, POCPO2, BEART @[facility]@ PROBLEM LIST Principal Problem: Gross [...] received 8 days of IV antibiotic at [facility] discharged home on on Augmentin readmitted on at [facility] and started on Rocephin after sending [...] might be different from th e original. [facility] Service: Cardiology Progress Note Hospital [...] Nandini Barboza RN - 04/07/2019 10:48 PM [id number]: pt a/o to all, occasionally forgetful, vss. [...] Hospitalist Progress Note Reagan Shepard 74 y.o. [id number] male Jamar Manuel MD Hospital Day: LOS: 1 day Patient Summary: 74-year-old gentleman with past medical history of bilateral nonheali ng diabetic foot ulcer, and history of traumatic brain injury, stroke, diabetes mellitus typ e 2 insulin-dependent who was recently admitted to [facility] from 03/28/21 020 with acute hypoxic respiratory failure secondary to systolic CHF exacerbation with eject ion fraction of 40%, CTA chest negative for PE, troponin was minimally elevated 0.44 treated conservatively with medical therapy discharge to [facility] who went back to [facility] emergency department with worsening shortness [...] received 8 days of IV antibiotic at [facility] discharged home on on Augmentin readmitted on at [facility] and started on Rocephin after sending [...] might be different from th tiffany original. [facility] Service: Cardiology Progress Note Hospital [...] Novoa RN - 04/06/2019 10:15 AM [facility] Service: Wound/Ostomy Care Progress Note Wound [...] 3.6 | 2.3 - 4.8 mg/dL | [facility] | | | | | | LABORATORY | | + + + + + + | Estimated | >60Comment: GFR <60: | >60 | [facility] | | | GFR | [...] | | | | | performed at [facility] | | | | | | [facility];[place], [place] | | | | | | [address] | | | | + + + + + + + + | Specimen | + + | Blood | + + + + + + + | Performing | Address | City/State/Zipcode | Phone Number | | Organization | | | | + + + + + | [facility] | [address] | [place] [address] | [phone] | + + + + + POC Glucose (04/21/2019 11:54 AM PST) + + + + + + | Component | Value | Ref Range | Performed | Pathologist | | | | | At | Signature | + + + + + + | Glucose, | 164 (H)Comment: Testing | 65 - 99 mg/dL | [facility] | | | POC | performed at [facility];[address] | | LABORATORY | | | | [address];[place] | | | | | | [address] | | | | + + + + + + + + | Specimen | + + | | + + + + + + + | Performing | Address | City/State/Zipcode | Phone Number | | Organization | | | | + + + + + | [facility] | [address] | [place] [address] | [phone] | + + + + + POC [...] | | | POC | performed at [facility];[address] | | LABORATORY | | | | [address];[place], [place] | | | | | | [address] | | | | + + + + + + + + | Specimen | + + | | + + + + + + + | Performing | Address | City/State/Zipcode | Phone Number | | Organization | | | | + + + + + | [facility] | [address] | [place] [address] | [phone] | + + + + + POC [...] | | | POC | performed at [facility];[address] | | LABORATORY | | | | [address];[place] | | | | | | [address] | | | | + + + + + + + + | Specimen | + + | | + + + + + + + | Performing | Address | City/State/Zipcode | Phone Number | | Organization | | | | + + + + + | [facility] | [address] | [place] [address] | [phone] | + + + + + POC Glucose (04/20/2019 9:08 PM PST) + + + + + + | Component | Value | Ref Range | Performed | Pathologist | | | | | At | Signature | + + + + + + | Glucose, | 157 (H)Comment: Testing | 65 - 99 mg/dL | [facility] | | | POC | performed at [facility];[address] | | LABORATORY | | | | [address];[place] | | | | | | [address] | | | | + + + + + + + + | Specimen | + + | | + + + + + + + | Performing | Address | City/State/Zipcode | Phone Number | | Organization | | | | + + + + + | [facility] | [address] | [place] [address] | [phone] | + + + + + POC [...] | | | POC | performed at [facility];[address] | | LABORATORY | | | | [address];[place], [place] | | | | | | [address] | | | | + + + + + + + + | Specimen | + + | | + + + + + + + | Performing | Address | City/State/Zipcode | Phone Number | | Organization | | | | + + + + + | [facility] | [address] | [place] [address] | [phone] | + + + + + POC Glucose (04/20/2019 5:04 PM PST) + + + + + + | Component | Value | Ref Range | Performed | Pathologist | | | | | At | Signature | + + + + + + | Glucose, | 199 (H)Comment: Testing | 65 - 99 mg/dL | [facility] | | | POC | performed at [facility];[address] | | LABORATORY | | | | [address];[place] | | | | | | [address] | | | | + + + + + + + + | Specimen | + + | | + + + + + + + | Performing | Address | City/State/Zipcode | Phone Number | | Organization | | | | + + + + + | [facility] | [address] | [place] [address] | [phone] | + + + + + POC Glucose (04/20/2019 12:44 PM PST) + + + + + + | Component | Value | Ref Range | Performed | Pathologist | | | | | At | Signature | + + + + + + | Glucose, | 273 (H)Comment: Testing | 65 - 99 mg/dL | [facility] | | | POC | performed at [facility];[address] | | LABORATORY | | | | [address];[place], [place] | | | | | | [address] | | | | + + + + + + + + | Specimen | + + | | + + + + + + + | Performing | Address | City/State/Zipcode | Phone Number | | Organization | | | | + + + + + | [facility] | [address] | [place] [address] | [phone] | + + + + + Vancomycin Level (04/20/2019 12:39 PM PST) + + + + + + | Component | Value | Ref Range | Performed | Pathologist | | | | | At | Signature | + + + + + + | Vancomycin | 18.3Comment: Testing | ug/mL | [facility] | | | Random, | performed at [facility];[address] | | LABORATORY | | | Serum | [address];[place], [place] | | | | | | [address] | | | | + + + + + + + + | Specimen | + + | Blood | + + + + + + + | Performing | Address | City/State/Zipcode | Phone Number | | Organization | | | | + + + + + | [facility] | [address] | [place] [address] | [phone] | + + + + + POC Glucose (04/20/2019 8:58 AM PST) + + + + + + | Component | Value | Ref Range | Performed | Pathologist | | | | | At | Signature | + + + + + + | Glucose, | 244 (H)Comment: Testing | 65 - 99 mg/dL | [facility] | | | POC | performed at [facility];[address] | | LABORATORY | | | | [address];[place] | | | | | | [address] | | | | + + + + + + + + | Specimen | + + | | + + + + + + + | Performing | Address | City/State/Zipcode | Phone Number | | Organization | | | | + + + + + | [facility] | [address] | [place] [address] | [phone] | + + + + + POC Glucose (04/20/2019 8:16 AM PST) + + + + + + | Component | Value | Ref Range | Performed | Pathologist | | | | | At | Signature | + + + + + + | Glucose, | 300 (H)Comment: Testing | 65 - 99 mg/dL | [facility] | | | POC | performed at [facility];[address] | | LABORATORY | | | | [address];[place] | | | | | | [address] | | | | + + + + + + + + | Specimen | + + | | + + + + + + + | Performing | Address | City/State/Zipcode | Phone Number | | Organization | | | | + + + + + | [facility] | [address] | [place] [address] | [phone] | + + + + + POC [...] | | | POC | performed at [facility];[address] | | LABORATORY | | | | [address];[place], [place] | | | | | | [address] | | | | + + + + + + + + | Specimen | + + | | + + + + + + + | Performing | Address | City/State/Zipcode | Phone Number | | Organization | | | | + + + + + | [facility] | [address] | [place] [address] | [phone] | + + + + + POC [...] | | | POC | performed at [facility];[address] | | LABORATORY | | | | [address];[place], [place] | | | | | | [address] | | | | + + + + + + + + | Specimen | + + | | + + + + + + + | Performing | Address | City/State/Zipcode | Phone Number | | Organization | | | | + + + + + | [facility] | [address] [facility] | [place] [address] | [phone] | + + + + + POC [...] | | | POC | performed at [facility];[address] | | LABORATORY | | | | [address];[place], [place] | | | | | | [address] | | | | + + + + + + + + | Specimen | + + | | + + + + + + + | Performing | Address | City/State/Zipcode | Phone Number | | Organization | | | | + + + + + | [facility] | [address] | [place] [address] | [phone] | + + + + + POC Glucose (04/19/2019 8:13 AM PST) + + + + + + | Component | Value | Ref Range | Performed | Pathologist | | | | | At | Signature | + + + + + + | Glucose, | 176 (H)Comment: Testing | 65 - 99 mg/dL | [facility] | | | POC | performed at [facility];[address] | | LABORATORY | | | | [address];[place] | | | | | | [address] | | | | + + + + + + + + | Specimen | + + | | + + + + + + + | Performing | Address | City/State/Zipcode | Phone Number | | Organization | | | | + + + + + | [facility] | [address] | [place] [address] | [phone] | + + + + + Basic [...] 8.0 (L) | 8.5 - 10.5 | [facility] | | | | | mg/dL | LABORATORY | | + + + + + + | Estimated | >60Comment: GFR <60: | >60 | [facility] | | | GFR | [...] | | | | | performed at [facility], [address] | | | | | | [facility], | | | | | | [place] [address] | | | | + + + + + + + + | Specimen | + + | Blood | + + + + + + + | Performing | Address | City/State/Zipcode | Phone Number | | Organization | | | | + + + + + | [facility] | [address] | [place] [address] | [phone] | + + + + + CBC [...] Hospital, | | | | | | [place] [address] | | | | | |MICRO | | | | | |NORMAL PLT MORPH | | | | | |Testing performed at [facility], [address] [facility], [place] [address] | | | | | | | | | | + + +---- + + + + + | Specimen | + + | Blood | + + + + + + + | Performing | Address | City/State/Zipcode | Phone Number | | Organization | | | | + + + + + | [facility] | [address] | [place] [address] | [phone] | + + + + + POC [...] | | | POC | performed at [facility];[address] | | LABORATORY | | | | [address];[place], [place] | | | | | | [address] | | | | + + + + + + + + | Specimen | + + | | + + + + + + + | Performing | Address | City/State/Zipcode | Phone Number | | Organization | | | | + + + + + | [facility] | [address] | [place] [address] | [phone] | + + + + + POC Glucose (04/18/2019 9:02 PM PST) + + + + + + | Component | Value | Ref Range | Performed | Pathologist | | | | | At | Signature | + + + + + + | Glucose, | 295 (H)Comment: Testing | 65 - 99 mg/dL | [facility] | | | POC | performed at [facility];[address] | | LABORATORY | | | | [address];[place] | | | | | | [address] | | | | + + + + + + + + | Specimen | + + | | + + + + + + + | Performing | Address | City/State/Zipcode | Phone Number | | Organization | | | | + + + + + | [facility] | [address] | [place] [address] | [phone] | + + + + + POC Glucose (04/18/2019 8:01 PM PST) + + + + + + | Component | Value | Ref Range | Performed | Pathologist | | | | | At | Signature | + + + + + + | Glucose, | 245 (H)Comment: Testing | 65 - 99 mg/dL | [facility] | | | POC | performed at [facility];[address] | | LABORATORY | | | | [address];[place] | | | | | | [address] | | | | + + + + + + + + | Specimen | + + | | + + + + + + + | Performing | Address | City/State/Zipcode | Phone Number | | Organization | | | | + + + + + | [facility] | [address] | [place] [address] | [phone] | + + + + + POC [...] | | | POC | performed at [facility];[address] | | LABORATORY | | | | [address];[place], [place] | | | | | | [address] | | | | + + + + + + + + | Specimen | + + | | + + + + + + + | Performing | Address | City/State/Zipcode | Phone Number | | Organization | | | | + + + + + | [facility] | [address] | [place] [address] | [phone] | + + + + + POC [...] | | | POC | performed at [facility];[address] | | LABORATORY | | | | [address];[place], [place] | | | | | | [address] | | | | + + + + + + + + | Specimen | + + | | + + + + + + + | Performing | Address | City/State/Zipcode | Phone Number | | Organization | | | | + + + + + | [facility] | [address] [facility] [address] | [place] [address] | [phone] | + + + + + NM [...] | | | POC | performed at [facility];[address] | | LABORATORY | | | | [address];[place] | | | | | | [address] | | | | + + + + + + + + | Specimen | + + | | + + + + + + + | Performing | Address | City/State/Zipcode | Phone Number | | Organization | | | | + + + + + | [facility] | [address] | [place] [address] | [phone] | + + + + + Basic [...] | | | | | performed at [facility];[address] | | | | | | [facility];[place], [place] | | | | | | [address] | | | | + + + + + + + + | Specimen | + + | Blood | + + + + + + + | Performing | Address | City/State/Zipcode | Phone Number | | Organization | | | | + + + + + | [facility] | [address] | [place] [address] | [phone] | + + + + + CBC [...] | | | Estimate | performed at [facility];[address] | | LABORATORY | | | | [address];[place] | | | | | | [address] | | | | + + + + + + + + | Specimen | + + | Blood | + + + + + + + | Performing | Address | City/State/Zipcode | Phone Number | | Organization | | | | + + + + + | [facility] | [address] | [place] [address] | [phone] | + + + + + POC [...] | | | POC | performed at [facility];[address] | | LABORATORY | | | | [address];[place] | | | | | | [address] | | | | + + + + + + + + | Specimen | + + | | + + + + + + + | Performing | Address | City/State/Zipcode | Phone Number | | Organization | | | | + + + + + | [facility] | [address] | [place] [address] | [phone] | + + + + + POC [...] | | | POC | performed at [facility];[address] | | LABORATORY | | | | [address];[place], [place] | | | | | | [address] | | | | + + + + + + + + | Specimen | + + | | + + + + + + + | Performing | Address | City/State/Zipcode | Phone Number | | Organization | | | | + + + + + | [facility] | [address] | [place] [address] | [phone] | + + + + + Vancomycin, [...] | | | | | performed at [facility] | | | | | | [address];[place], [place] | | | | | | [address] | | | | + + + + + + + + | Specimen | + + | Blood | + + + + + + + | Performing | Address | City/State/Zipcode | Phone Number | | Organization | | | | + + + + + | [facility] | [address] | [place] [address] | [phone] | + + + + + POC Glucose (04/17/2019 12:05 PM PST) + + + + + + | Component | Value | Ref Range | Performed | Pathologist | | | | | At | Signature | + + + + + + | Glucose, | 200 (H)Comment: Testing | 65 - 99 mg/dL | [facility] | | | POC | performed at [facility];[address] | | LABORATORY | | | | [address];[place] | | | | | | [address] | | | | + + + + + + + + | Specimen | + + | | + + + + + + + | Performing | Address | City/State/Zipcode | Phone Number | | Organization | | | | + + + + + | [facility] | [address] | [place] [address] | [phone] | + + + + + POC Glucose (04/17/2019 10:11 AM PST) + + + + + + | Component | Value | Ref Range | Performed | Pathologist | | | | | At | Signature | + + + + + + | Glucose, | 138 (H)Comment: Testing | 65 - 99 mg/dL | [facility] | | | POC | performed at [facility];[address] | | LABORATORY | | | | [address];[place] | | | | | | [address] | | | | + + + + + + + + | Specimen | + + | | + + + + + + + | Performing | Address | City/State/Zipcode | Phone Number | | Organization | | | | + + + + + | [facility] | [address] | [place] [address] | [phone] | + + + + + POC [...] | | | POC | performed at [facility];[address] | | LABORATORY | | | | [address];[place], [place] | | | | | | [address] | | | | + + + + + + + + | Specimen | + + | | + + + + + + + | Performing | Address | City/State/Zipcode | Phone Number | | Organization | | | | + + + + + | [facility] | [address] | [place] [address] | [phone] | + + + + + Basic [...] | >60Comment: GFR <60: | >60 | [facility] | | | GFR | [...] | | | | | performed at [facility], [address] | | | | | | [facility], | | | | | | [place] [address] | | | | + + + + + + + + | Specimen | + + | Blood | + + + + + + + | Performing | Address | City/State/Zipcode | Phone Number | | Organization | | | | + + + + + | [facility] | [address] | [place] [address] | [phone] | + + + + + CBC [...] [address], | | | | | | [place] [address] | | | | | |MICRO | | | | | |NORMAL PLT MORPH | | | | | |Testing performed at [facility], [address] [facility], [place] [address] | | | | | | | | | | + + +---- + + + + + | Specimen | + + | Blood | + + + + + + + | Performing | Address | City/State/Zipcode | Phone Number | | Organization | | | | + + + + + | [facility] | [address] [facility] | [place] [address] | [phone] | + + + + + POC Glucose (04/16/2019 8:57 PM PST) + + + + + + | Component | Value | Ref Range | Performed | Pathologist | | | | | At | Signature | + + + + + + | Glucose, | 96Comment: Testing | 65 - 99 mg/dL | [facility] | | | POC | performed at [facility];[address] | | LABORATORY | | | | [address];[place], [place] | | | | | | [address] | | | | + + + + + + + + | Specimen | + + | | + + + + + + + | Performing | Address | City/State/Zipcode | Phone Number | | Organization | | | | + + + + + | [facility] | [address] | [place] [address] | [phone] | + + + + + POC [...] | | | POC | performed at [facility];[address] | | LABORATORY | | | | [address];[place] | | | | | | [address] | | | | + + + + + + + + | Specimen | + + | | + + + + + + + | Performing | Address | City/State/Zipcode | Phone Number | | Organization | | | | + + + + + | [facility] | [address] | [place] [address] | [phone] | + + + + + POC Glucose (04/16/2019 1:15 PM PST) + + + + + + | Component | Value | Ref Range | Performed | Pathologist | | | | | At | Signature | + + + + + + | Glucose, | 106 (H)Comment: Testing | 65 - 99 mg/dL | [facility] | | | POC | performed at [facility];[address] | | LABORATORY | | | | [address];[place] | | | | | | [address] | | | | + + + + + + + + | Specimen | + + | | + + + + + + + | Performing | Address | City/State/Zipcode | Phone Number | | Organization | | | | + + + + + | [facility] | [address] | [place] [address] | [phone] | + + + + + POC [...] | | | POC | performed at [facility];[address] | | LABORATORY | | | | [address];[place] | | | | | | [address] | | | | + + + + + + + + | Specimen | + + | | + + + + + + + | Performing | Address | City/State/Zipcode | Phone Number | | Organization | | | | + + + + + | [facility] | [address] | [place] [address] | [phone] | + + + + + CBC [...] | | | | | performed at [facility], [address] | | | | | | [address], | | | | | | [place] [address] | | | | | |MICRO | | | | | |NORMAL PLT MORPH | | | | | |Testing performed at [facility], [address] [place] [address] | | | | | | | | | | + + +---- + + + + + | Specimen | + + | Blood | + + + + + + + | Performing | Address | City/State/Zipcode | Phone Number | | Organization | | | | + + + + + | [facility] | [address] [facility] | [place] [address] | [phone] | + + + + + Basic [...] | | | | | performed at [facility], [address] | | | | | [...] | + + + + + | [facility] | [address] | [place] [address] | [phone] | + + + + + POC [...] | | | POC | performed at [facility];[address] | | LABORATORY | | | | [address];[place] | | | | | | [address] | | | | + + + + + + + + | Specimen | + + | | + + + + + + + | Performing | Address | City/State/Zipcode | Phone Number | | Organization | | | | + + + + + | [facility] | [address] | [place] [address] | [phone] | + + + + + POC Glucose (04/15/2019 4:51 PM PST) + + + + + + | Component | Value | Ref Range | Performed | Pathologist | | | | | At | Signature | + + + + + + | Glucose, | 239 (H)Comment: Testing | 65 - 99 mg/dL | [facility] | | | POC | performed at [facility];[address] | | LABORATORY | | | | [address];[place] | | | | | | [address] | | | | + + + + + + + + | Specimen | + + | | + + + + + + + | Performing | Address | City/State/Zipcode | Phone Number | | Organization | | | | + + + + + | [facility] | [address] | [place] [address] | [phone] | + + + + + POC Glucose (04/15/2019 1:19 PM PST) + + + + + + | Component | Value | Ref Range | Performed | Pathologist | | | | | At | Signature | + + + + + + | Glucose, | 227 (H)Comment: Testing | 65 - 99 mg/dL | [facility] | | | POC | performed at [facility];[address] | | LABORATORY | | | | [address];[place] | | | | | | [address] | | | | + + + + + + + + | Specimen | + + | | + + + + + + + | Performing | Address | City/State/Zipcode | Phone Number | | Organization | | | | + + + + + | [facility] | [address] | [place] [address] | [phone] | + + + + + Type [...] + + + | BB BAND | [id number] | | [facility] | | | | | | LABORATORY | | + + + + + + | UNIT # | [id number] | | [facility] | | | | [...] + + + | UNIT # | [id number] | | [facility] | | | | [...] + + + | UNIT # | [id number] | | [facility] | | | | [...] | | | RESULT | performed at [facility];[address] | | LABORATORY | | | | [address];[place], [place] | | | | | | [address] | | | | + + + + + + + + | Specimen | + + | Blood | + + + + + + + | Performing | Address | City/State/Zipcode | Phone Number | | Organization | | | | + + + + + | [facility] | [address] | [place] [address] | [phone] | + + + + + Red [...] | ORDER RECEIVED IN BLOOD | | [facility] | | | COMMENT | BANK. | | LABORATORY | | + + + + + + | BLOOD BANK | Testing performed at | | [facility] | | | COMMENT | [facility];[address] | | LABORATORY | | | | [address];[place] [address] | | | | + + + + + + + + | Specimen | + + | | + + + + + + + | Performing | Address | City/State/Zipcode | Phone Number | | Organization | | | | + + + + + | [facility] | [address] | [place] [address] | [phone] | + + + + + POC Glucose (04/15/2019 9:11 AM PST) + + + + + + | Component | Value | Ref Range | Performed | Pathologist | | | | | At | Signature | + + + + + + | Glucose, | 165 (H)Comment: Testing | 65 - 99 mg/dL | [facility] | | | POC | performed at [facility];[address] | LABORATORY | | | [address];[place] | | | | | | [address] | | | | + + + + + + + + | Specimen | + + | | + + + + + + + | Performing | Address | City/State/Zipcode | Phone Number | | Organization | | | | + + + + + | [facility] | [address] | [place] [address] | [phone] | + + + + + Vancomycin, [...] | | | | | performed at [facility] | | | | | | [address];[place], [place] | | | | | | [address] | | | | + + + + + + + + | Specimen | + + | Blood | + + + + + + + | Performing | Address | City/State/Zipcode | Phone Number | | Organization | | | | + + + + + | [facility] | [address] | [place] [address] | [phone] | + + + + + CBC [...] | | | Estimate | performed at [facility];[address] | | LABORATORY | | | | [address];[place] | | | | | | [address] | | | | + + + + + + + + | Specimen | + + | Blood | + + + + + + + | Performing | Address | City/State/Zipcode | Phone Number | | Organization | | | | + + + + + | [facility] | [address] | [place] [address] | [phone] | + + + + + Basic [...] | | | | | performed at [facility];[address] | | | | | | [facility];[place], [place] | | | | | | [address] | | | | + + + + + + + + | Specimen | + + | Blood | + + + + + + + | Performing | Address | City/State/Zipcode | Phone Number | | Organization | | | | + + + + + | [facility] | [address] | [place] [address] | [phone] | + + + + + POC Glucose (04/14/2019 8:15 PM PST) + + + + + + | Component | Value | Ref Range | Performed | Pathologist | | | | | At | Signature | + + + + + + | Glucose, | 159 (H)Comment: Testing | 65 - 99 mg/dL | [facility] | | | POC | performed at [facility];[address] | | LABORATORY | | | | [address];[place] | | | | | | [address] | | | | + + + + + + + + | Specimen | + + | | + + + + + + + | Performing | Address | City/State/Zipcode | Phone Number | | Organization | | | | + + + + + | [facility] | [address] | [place] [address] | [phone] | + + + + + POC [...] | | | POC | performed at [facility];[address] | | LABORATORY | | | | [address];[place], [place] | | | | | | [address] | | | | + + + + + + + + | Specimen | + + | | + + + + + + + | Performing | Address | City/State/Zipcode | Phone Number | | Organization | | | | + + + + + | [facility] | [address] | [place] [address] | [phone] | + + + + + POC Glucose (04/14/2019 11:43 AM PST) + + + + + + | Component | Value | Ref Range | Performed | Pathologist | | | | | At | Signature | + + + + + + | Glucose, | 153 (H)Comment: Testing | 65 - 99 mg/dL | [facility] | | | POC | performed at [facility];[address] | | LABORATORY | | | | [address];[place] | | | | | | [address] | | | | + + + + + + + + | Specimen | + + | | + + + + + + + | Performing | Address | City/State/Zipcode | Phone Number | | Organization | | | | + + + + + | [facility] | [address] | [place] [address] | [phone] | + + + + + ECHO [...] | | | POC | performed at [facility];[address] | | LABORATORY | | | | [address] [address];[place] | | | | | | [address] | | | | + + + + + + + + | Specimen | + + | | + + + + + + + | Performing | Address | City/State/Zipcode | Phone Number | | Organization | | | | + + + + + | [facility] | [address] | [place] [address] | [phone] | + + + + + B [...] | | LABORATORY | | | | [facility];[address] | | | | | [address];[place] [address] | | | | + + + + + + + + | Specimen | + + | | + + + + + + + | Performing | Address | City/State/Zipcode | Phone Number | | Organization | | | | + + + + + | [facility] | [address] | [place] [address] | [phone] | + + + + + CBC [...] | | | Estimate | performed at [facility];[address] | | LABORATORY | | | | [address];[place] | | | | | | [address] | | | | + + + + + + + + | Specimen | + + | | + + + + + + + | Performing | Address | City/State/Zipcode | Phone Number | | Organization | | | | + + + + + | [facility] | [address] | [place] [address] | [phone] | + + + + + Troponin [...] at | | | | | | [facility];[address] [facility] | | | | | | [facility];[place] [address] | | | | + + + + + + + + | Specimen | + + | Blood | + + + + + + + | Performing | Address | City/State/Zipcode | Phone Number | | Organization | | | | + + + + + | [facility] | [address] | [place] [address] | [phone] | + + + + + Basic [...] | >60Comment: GFR <60: | >60 | [facility] | | | GFR | [...] | | | | | | [facility]D [facility] traceable | | | | | | equation.Testing | | | | | | performed at [facility] | | | | | | [facility];[place], [place] | | | | | | [address] | | | | + + + + + + + + | Specimen | + + | Blood | + + + + + + + | Performing | Address | City/State/Zipcode | Phone Number | | Organization | | | | + + + + + | [facility] | [address] | [place] [address] | [phone] | + + + + + Vancomycin Level (04/14/2019 4:53 AM PST) + + + + + + | Component | Value | Ref Range | Performed | Pathologist | | | | | At | Signature | + + + + + + | Vancomycin | 20.6Comment: Testing | ug/mL | [facility] | | | Random, | performed at [facility];[address] | | LABORATORY | | | Serum | [address];[place] | | | | | | [address] | | | | + + + + + + + + | Specimen | + + | Blood | + + + + + + + | Performing | Address | City/State/Zipcode | Phone Number | | Organization | | | | + + + + + | [facility] | [address] | [place] [address] | [phone] | + + + + + POC Glucose (04/14/2019 1:46 AM PST) + + + + + + | Component | Value | Ref Range | Performed | Pathologist | | | | | At | Signature | + + + + + + | Glucose, | 166 (H)Comment: Testing | 65 - 99 mg/dL | [facility] | | | POC | performed at [facility];[address] | | LABORATORY | | | | [address];[place] | | | | | | [address] | | | | + + + + + + + + | Specimen | + + | | + + + + + + + | Performing | Address | City/State/Zipcode | Phone Number | | Organization | | | | + + + + + | [facility] | [address] | [place] [address] | [phone] | + + + + + Troponin I (04/14/2019 1:19 AM PST) + + + + + + | Component | Value | Ref Range | Performed | Pathologist | | | | | At | Signature | + + + + + + | Troponin I | 0.015Comment: 0.04 | 0.00 - 0.04 | [facility] | | | | ng/mL [...] at | | | | | | [facility];[address] | [address];[place] [address] | | | | + + + + + + + + | Specimen | + + | Blood | + + + + + + + | Performing | Address | City/State/Zipcode | Phone Number | | Organization | | | | + + + + + | [facility] | [address] | [place] [address] | [phone] | + + + + + ECG [...] | | | POC | performed at [facility];[address] | | LABORATORY | | | | [address];[place] | | | | | | [address] | | | | + + + + + + + + | Specimen | + + | | + + + + + + + | Performing | Address | City/State/Zipcode | Phone Number | | Organization | | | | + + + + + | [facility] | [address] | [place] [address] | [phone] | + + + + + POC Glucose (04/13/2019 4:19 PM PST) + + + + + + | Component | Value | Ref Range | Performed | Pathologist | | | | | At | Signature | + + + + + + | Glucose, | 109 (H)Comment: Testing | 65 - 99 mg/dL | [facility] | | | POC | performed at [facility];[address] | | LABORATORY | | | | [address];[place] | | | | | | [address] | | | | + + + + + + + + | Specimen | + + | | + + + + + + + | Performing | Address | City/State/Zipcode | Phone Number | | Organization | | | | + + + + + | [facility] | [address] | [place] [address] | [phone] | + + + + + XR [...] catheterization with right leg runoff4. Right SFA FLEXOGRAPHIC PRESS OPERATOR | | | crossing and atherectomy using Bard 14 S crossing catheter SURGEON: | | | Simba Cheng MD INFORMATION TECHNOLOGY DATA ANALYST: None ANESTHESIA: Moderate sedation and local | [...] | | identified and brought to the Powerhouse Operator. The patient was placed supine | [...] sized to a 4 | | | [place] sheath. A Omni flush catheter was then [...] inserted over the catheter and the 4 [place] sheath was | | | removed. A 7 [place] destination sheath was then inserted over the [...] | | | POC | performed at [facility];[address] | | LABORATORY | | | | [address];[place], [place] | | | | | | [address] | | | | + + + + + + + + | Specimen | + + | | + + + + + + + | Performing | Address | City/State/Zipcode | Phone Number | | Organization | | | | + + + + + | [facility] | [address] | [place] [address] | [phone] | + + + + + POC [...] | | | POC | performed at [facility];[address] | | LABORATORY | | | | [address];[place], [place] | | | | | | [address] | | | | + + + + + + + + | Specimen | + + | | + + + + + + + | Performing | Address | City/State/Zipcode | Phone Number | | Organization | | | | + + + + + | [facility] | [address] | [place] [address] | [phone] | + + + + + Basic [...] | | | | | performed at [facility], [address] | | | | | | [facility], | | | | | | [place] [address] | | | | + + + + + + + + | Specimen | + + | Blood | + + + + + + + | Performing | Address | City/State/Zipcode | Phone Number | | Organization | | | | + + + + + | [facility] | [address] | [place] [address] | [phone] | + + + + + CBC [...] | | | | | performed at [facility], [facility] [address] | | | | | | [facility], | | | | | | [place] [address] | | | | | |MICRO | | | | | |NORMAL PLT MORPH | | | | | |Testing performed at [facility], [facility] [place] [address] | | | | | | | | | | + + +---- + + + + + | Specimen | + + | Blood | + + + + + + + | Performing | Address | City/State/Zipcode | Phone Number | | Organization | | | | + + + + + | [facility] | [address] | [place] [address] | [phone] | + + + + + POC Glucose (04/13/2019 3:30 AM PST) + + + + + + | Component | Value | Ref Range | Performed | Pathologist | | | | | At | Signature | + + + + + + | Glucose, | 147 (H)Comment: Testing | 65 - 99 mg/dL | [facility] | | | POC | performed at [facility];[address] | | LABORATORY | | | | [address];[place], [place] | | | | | | [address] | | | | + + + + + + + + | Specimen | + + | | + + + + + + + | Performing | Address | City/State/Zipcode | Phone Number | | Organization | | | | + + + + + | [facility] | [address] | [place] [address] | [phone] | + + + + + POC [...] | | | POC | performed at [facility];[address] | | LABORATORY | | | | [address];[place], [place] | | | | | | [address] | | | | + + + + + + + + | Specimen | + + | | + + + + + + + | Performing | Address | City/State/Zipcode | Phone Number | | Organization | | | | + + + + + | [facility] | [address] | [place] [address] | [phone] | + + + + + POC Glucose (04/12/2019 4:28 PM PST) + + + + + + | Component | Value | Ref Range | Performed | Pathologist | | | | | At | Signature | + + + + + + | Glucose, | 211 (H)Comment: Testing | 65 - 99 mg/dL | [facility] | | | POC | performed at [facility];[address] | | LABORATORY | | | | [address];[place], [place] | | | | | | [address] | | | | + + + + + + + + | Specimen | + + | | + + + + + + + | Performing | Address | City/State/Zipcode | Phone Number | | Organization | | | | + + + + + | [facility] | [address] | [place] [address] | [phone] | + + + + + POC Glucose (04/12/2019 11:53 AM PST) + + + + + + | Component | Value | Ref Range | Performed | Pathologist | | | | | At | Signature | + + + + + + | Glucose, | 162 (H)Comment: Testing | 65 - 99 mg/dL | [facility] | | | POC | performed at [facility];[address] | | LABORATORY | | | | [address];[place] | | | | | | [address] | | | | + + + + + + + + | Specimen | + + | | + + + + + + + | Performing | Address | City/State/Zipcode | Phone Number | | Organization | | | | + + + + + | [facility] | [address] | [place] [address] | [phone] | + + + + + POC [...] | | | POC | performed at [facility];[address] | | LABORATORY | | | | [address];[place], [place] | | | | | | [address] | | | | + + + + + + + + | Specimen | + + | | + + + + + + + | Performing | Address | City/State/Zipcode | Phone Number | | Organization | | | | + + + + + | [facility] | [address] | [place] [address] | [phone] | + + + + + Basic [...] 8.2 (L) | 8.5 - 10.5 | [facility] | | | | | mg/dL | LABORATORY | | + + + + + + | Estimated | >60Comment: GFR <60: | >60 | [facility] | | | GFR | [...] | | | | | performed at [facility], [address] | | | | | | [facility], | | | | | | [place] [address] | | | | + + + + + + + + | Specimen | + + | Blood | + + + + + + + | Performing | Address | City/State/Zipcode | Phone Number | | Organization | | | | + + + + + | [facility] | [address] | [place] [address] | [phone] | + + + + + CBC [...] | | | | | performed at [facility], [address] | | | | | | [address], | | | | | | [place] [address] | | | | | |MICRO | | | | | |NORMAL PLT MORPH | | | | | |Testing performed at [facility], [address] [facility], [place] [address] | | | | | | | | | | + + +---- + + + + + | Specimen | + + | Blood | + + + + + + + | Performing | Address | City/State/Zipcode | Phone Number | | Organization | | | | + + + + + | [facility] | [address] [facility] | [place] [address] | [phone] | + + + + + POC [...] | | | POC | performed at [facility];[address] | | LABORATORY | | | | [address];[place], [place] | | | | | | [address] | | | | + + + + + + + + | Specimen | + + | | + + + + + + + | Performing | Address | City/State/Zipcode | Phone Number | | Organization | | | | + + + + + | [facility] | [address] | [place] [address] | [phone] | + + + + + POC [...] | | | POC | performed at [facility];[address] | | LABORATORY | | | | [address];[place] | | | | | | [address] | | | | + + + + + + + + | Specimen | + + | | + + + + + + + | Performing | Address | City/State/Zipcode | Phone Number | | Organization | | | | + + + + + | [facility] | [address] | [place] [address] | [phone] | + + + + + POC Glucose (04/11/2019 3:22 PM PST) + + + + + + | Component | Value | Ref Range | Performed | Pathologist | | | | | At | Signature | + + + + + + | Glucose, | 168 (H)Comment: Testing | 65 - 99 mg/dL | [facility] | | | POC | performed at [facility];[address] | | LABORATORY | | | | [address];[place], [place] | | | | | | [address] | | | | + + + + + + + + | Specimen | + + | | + + + + + + + | Performing | Address | City/State/Zipcode | Phone Number | | Organization | | | | + + + + + | [facility] | [address] | [place] [address] | [phone] | + + + + + IR [...] x 150 mm | | | angioplasty [id number]. Left SFA stenting using 7 x 120 mm | | | self-expanding stent SURGEON: Simba Cheng MD INFORMATION TECHNOLOGY DATA ANALYST: None ANESTHESIA: | | | Moderate sedation [...] | | identified and brought to the Powerhouse Operator. The patient was placed supine | [...] sized to a 4 | | | [place] sheath. A Omni flush catheter was then [...] inserted over the catheter and the 4 [place] sheath was | | | removed. A 7 [place] Citizen destination sheath was then inserted over the [...] using a | | | Glidewire and [place] catheter. A 0.009 wire was then passed [...] crossed using a | | |Glidewire and [place] catheter. A 0.009 wire was then passed [...] | | | POC | performed at [facility];[address] | | LABORATORY | | | | [address];[place], [place] | | | | | | [address] | | | | + + + + + + + + | Specimen | + + | | + + + + + + + | Performing | Address | City/State/Zipcode | Phone Number | | Organization | | | | + + + + + | [facility] | [address] | [place] [address] | [phone] | + + + + + B Type Natriuretic Peptide (04/11/2019 5:48 AM PST) + + + + + + | Component | Value | Ref Range | Performed | Pathologist | | | | | At | Signature | + + + + + + | BNP | 220.45 (H)Comment: | 0 - 100 pg/mL | [facility] | | | | Testing performed at | | LABORATORY | | | | [facility];[address] | | | | | | [address];[place] [address] | | | | + + + + + + + + | Specimen | + + | Blood | + + + + + + + | Performing | Address | City/State/Zipcode | Phone Number | | Organization | | | | + + + + + | [facility] | [address] | [place] [address] | [phone] | + + + + + Basic [...] | | | | | performed at [facility], [address] | | | | | | [facility], | | | | | | [place] [address] | | | | + + + + + + + + | Specimen | + + | Blood | + + + + + + + | Performing | Address | City/State/Zipcode | Phone Number | | Organization | | | | + + + + + | [facility] | [address] | [place] [address] | [phone] | + + + + + CBC [...] | | | | | | at [facility], [address] | | | | | | [facility], | | | | | | [place] [address] | | | | | |Testing performed at [facility], [address] [place] [address] | | | | | | | | | | + + +---- + + + + + | Specimen | + + | Blood | + + + + + + + | Performing | Address | City/State/Zipcode | Phone Number | | Organization | | | | + + + + + | [facility] | [address] | [place] [address] | [phone] | + + + + + POC [...] | | | POC | performed at [facility];[address] | | LABORATORY | | | | [address];[place] | | | | | | [address] | | | | + + + + + + + + | Specimen | + + | | + + + + + + + | Performing | Address | City/State/Zipcode | Phone Number | | Organization | | | | + + + + + | [facility] | [address] | [place] [address] | [phone] | + + + + + POC Glucose (04/10/2019 2:33 PM PST) + + + + + + | Component | Value | Ref Range | Performed | Pathologist | | | | | At | Signature | + + + + + + | Glucose, | 176 (H)Comment: Testing | 65 - 99 mg/dL | [facility] | | | POC | performed at [facility];[address] | | LABORATORY | | | | [address];[place] | | | | | | [address] | | | | + + + + + + + + | Specimen | + + | | + + + + + + + | Performing | Address | City/State/Zipcode | Phone Number | | Organization | | | | + + + + + | [facility] | [address] | [place] [address] | [phone] | + + + + + [place] [...] | | | POC | performed at [facility];[address] | | LABORATORY | | | | [address];[place], [place] | | | | | | [address] | | | | + + + + + + + + | Specimen | + + | | + + + + + + + | Performing | Address | City/State/Zipcode | Phone Number | | Organization | | | | + + + + + | [facility] | [address] | [place] [address] | [phone] | + + + + + CBC [...] [address], | | | | | | [place] [address] | | | | + + + + + + + + | Specimen | + + | Blood | + + + + + + + | Performing | Address | City/State/Zipcode | Phone Number | | Organization | | | | + + + + + | [facility] | [address] [facility] | [place] [address] | [phone] | + + + + + POC [...] | | | POC | performed at [facility];[address] | | LABORATORY | | | | [address];[place], [place] | | | | | | [address] | | | | + + + + + + + + | Specimen | + + | | + + + + + + + | Performing | Address | City/State/Zipcode | Phone Number | | Organization | | | | + + + + + | [facility] | [address] | [place] [address] | [phone] | + + + + + POC Glucose (04/09/2019 5:06 PM PST) + + + + + + | Component | Value | Ref Range | Performed | Pathologist | | | | | At | Signature | + + + + + + | Glucose, | 169 (H)Comment: Testing | 65 - 99 mg/dL | [facility] | | | POC | performed at [facility];[address] | | LABORATORY | | | | [address];[place] | | | | | | [address] | | | | + + + + + + + + | Specimen | + + | | + + + + + + + | Performing | Address | City/State/Zipcode | Phone Number | | Organization | | | | + + + + + | [facility] | [address] | [place] [address] | [phone] | + + + + + POC [...] | | | POC | performed at [facility];[address] | | LABORATORY | | | | [address];[place] | | | | | | [address] | | | | + + + + + + + + | Specimen | + + | | + + + + + + + | Performing | Address | City/State/Zipcode | Phone Number | | Organization | | | | + + + + + | [facility] | [address] | [place] [address] | [phone] | + + + + + XR [...] | 1+ (A)Comment: Testing | NONE | [facility] | | | Urine | performed at [facility], [address] | | LABORATORY | | | | [address], | | | | | | [place] [address] | | | | + + + + + + + + | Specimen | + + | | + + + + + + + | Performing | Address | City/State/Zipcode | Phone Number | | Organization | | | | + + + + + | [facility] | [address] | [place] [address] | [phone] | + + + + + Urinalysis, [...] - 1.030 | [facility] | | | [place], | | | LABORATORY | | | [...] | + + + + + | [facility] | [address] | [place] [address] | [phone] | + + + + + Sedimentation Rate (04/09/2019 6:16 AM PST) + + + + + + | Component | Value | Ref Range | Performed | Pathologist | | | | | At | Signature | + + + + + + | ESR | 91 (H)Comment: Testing | 0 - 20 mm/Hr | [facility] | | | | performed at [facility], [address] | | LABORATORY | | | | [address], | | | | | | [place] [address] | | | | + + + + + + + + | Specimen | + + | Blood | + + + + + + + | Performing | Address | City/State/Zipcode | Phone Number | | Organization | | | | + + + + + | [facility] | [address] | [place] [address] | [phone] | + + + + + CBC [...] [facility] | | | | performed at [facility], [address] | | LABORATORY | | | | [address], | | | | | | [place] [address] | | | | + + + + + + + + | Specimen | + + | Blood | + + + + + + + | Performing | Address | City/State/Zipcode | Phone Number | | Organization | | | | + + + + + | [facility] | [address] | [place] [address] | [phone] | + + + + + Comprehensive [...] | | | | | performed at [facility], [address] | | | | | | [facility], | | | | | | [place] [address] | | | | + + + + + + + + | Specimen | + + | Blood | + + + + + + + | Performing | Address | City/State/Zipcode | Phone Number | | Organization | | | | + + + + + | [facility] | [address] | [place] [address] | [phone] | + + + + + POC [...] | | | POC | performed at [facility];[address] | LABORATORY | | | | [address];[place], [place] | | | | | | [address] | | | | + + + + + + + + | Specimen | + + | | + + + + + + + | Performing | Address | City/State/Zipcode | Phone Number | | Organization | | | | + + + + + | [facility] | [address] | [place] [address] | [phone] | + + + + + Fecal Hemoglobin (04/08/2019 7:27 PM PST) + + + + + + | Component | Value | Ref Range | Performed | Pathologist | | | | | At | Signature | + + + + + + | FECAL | NEGATIVEComment: Testing | NEG | IDA | | | OCCULT BLD | performed at [facility];[address] | | LABORATORY | | | | [address];[place] | | | | | | [address] | | | | + + + + + + + + | Specimen | + + | Stool - Stool | | specimen (specimen) | + + + + + + + | Performing | Address | City/State/Zipcode | Phone Number | | Organization | | | | + + + + + | [facility] | [address] | [place] [address] | [phone] | + + + + + POC Glucose (04/08/2019 6:34 PM PST) + + + + + + | Component | Value | Ref Range | Performed | Pathologist | | | | | At | Signature | + + + + + + | Glucose, | 179 (H)Comment: Testing | 65 - 99 mg/dL | [facility] | | | POC | performed at [facility];[address] | | LABORATORY | | | | [address];[place] | | | | | | [address] | | | | + + + + + + + + | Specimen | + + | | + + + + + + + | Performing | Address | City/State/Zipcode | Phone Number | | Organization | | | | + + + + + | [facility] | [address] | [place] [address] | [phone] | + + + + + XR [...] Testing | 65 - 99 mg/dL | [facility] | | | POC | performed at [facility];[address] | | LABORATORY | | | | [address];[place] | | | | | | [address] | | | | + + + + + + + + | Specimen | + + | | + + + + + + + | Performing | Address | City/State/Zipcode | Phone Number | | Organization | | | | + + + + + | [facility] | [address] | [place] [address] | [phone] | + + + + + XR [...] | | | POC | performed at [facility];[address] | | LABORATORY | | | | [address];[place], [place] | | | | | | [address] | | | | + + + + + + + + | Specimen | + + | | + + + + + + + | Performing | Address | City/State/Zipcode | Phone Number | | Organization | | | | + + + + + | [facility] | [address] | [place] [address] | [phone] | + + + + + B [...] | | LABORATORY | | | | [facility];[address] | | | | | | [place] [address] | | | | + + + + + + + + | Specimen | + + | Blood | + + + + + + + | Performing | Address | City/State/Zipcode | Phone Number | | Organization | | | | + + + + + | [facility] | [address] | [place] [address] | [phone] | + + + + + CBC [...] [facility] | | | | performed at [facility], [address] | | LABORATORY | | | | [facility], | | | | | | [place] [address] | | | | + + + + + + + + | Specimen | + + | Blood | + + + + + + + | Performing | Address | City/State/Zipcode | Phone Number | | Organization | | | | + + + + + | [facility] | [address] | [place] [address] | [phone] | + + + + + Comprehensive [...] | | | | | | [facility] traceable | | | | | | equation.Testing | | | | | | performed at [facility], [address] | | | | | | [facility], | | | | | | [place] [address] | | | | + + + + + + + + | Specimen | + + | Blood | + + + + + + + | Performing | Address | City/State/Zipcode | Phone Number | | Organization | | | | + + + + + | [facility] | [address] | [place] [address] | [phone] | + + + + + POC [...] | | | POC | performed at [facility];[address] | | LABORATORY | | | | [address]illo;[place], [place] | | | | | | [address] | | | | + + + + + + + + | Specimen | + + | | + + + + + + + | Performing | Address | City/State/Zipcode | Phone Number | | Organization | | | | + + + + + | [facility] | [address] | [place] [address] | [phone] | + + + + + POC [...] | | | POC | performed at [facility];[address] | | LABORATORY | | | | [address];[place] | | | | | | [address] | | | | + + + + + + + + | Specimen | + + | | + + + + + + + | Performing | Address | City/State/Zipcode | Phone Number | | Organization | | | | + + + + + | [facility] | [address] [facility] | [place] [address] | [phone] | + + + + + POC [...] | | | POC | performed at [facility];[address] | | LABORATORY | | | | [address];[place], [place] | | | | | | [address] | | | | + + + + + + + + | Specimen | + + | | + + + + + + + | Performing | Address | City/State/Zipcode | Phone Number | | Organization | | | | + + + + + | [facility] | [address] | [place] [address] | [phone] | + + + + + XR [...] | | | | Signed by: Madison Argeuta Timothy | | Sign Date/Time: 04/07/2019 1:43 [...] | | | POC | performed at [facility];[address] | | LABORATORY | | | | [address];[place], [place] | | | | | | [address] | | | | + + + + + + + + | Specimen | + + | | + + + + + + + | Performing | Address | City/State/Zipcode | Phone Number | | Organization | | | | + + + + + | [facility] | [address] | [place] [address] | [phone] | + + + + + Magnesium [...] | | | | | [place] [address] | | | | + + + + + + + + | Specimen | + + | Blood | + + + + + + + | Performing | Address | City/State/Zipcode | Phone Number | | Organization | | | | + + + + + | [facility] | [address] | [place] [address] | [phone] | + + + + + CBC [...] [facility] | | | | performed at [facility];[address] | | LABORATORY | | | | [address];[place] | | | | | | [address] | | | | + + + + + + + + | Specimen | + + | Blood | + + + + + + + | Performing | Address | City/State/Zipcode | Phone Number | | Organization | | | | + + + + + | [facility] | [address] | [place] [address] | [phone] | + + + + + Comprehensive [...] [place], | | | | | | [place] [address] | | | | + + + + + + + + | Specimen | + + | Blood | + + + + + + + | Performing | Address | City/State/Zipcode | Phone Number | | Organization | | | | + + + + + | [facility] | [address] | [place] [address] | [phone] | + + + + + Iron, Total (04/07/2019 5:02 AM PST) + + + + + + | Component | Value | Ref Range | Performed | Pathologist | | | | | At | Signature | + + + + + + | Iron | 23 (L)Comment: Testing | 45 - 190 ug/dL | [facility] | | | | performed at [facility], [address] | | LABORATORY | | | | [address], | | | | | | [place] [address] | | | | + + + + + + + + | Specimen | + + | Blood | + + + + + + + | Performing | Address | City/State/Zipcode | Phone Number | | Organization | | | | + + + + + | [facility] | [address] | [place] [address] | [phone] | + + + + + POC Glucose (04/06/2019 8:54 PM PST) + + + + + + | Component | Value | Ref Range | Performed | Pathologist | | | | | At | Signature | + + + + + + | Glucose, | 216 (H)Comment: Testing | 65 - 99 mg/dL | [facility] | | | POC | performed at [facility];[address] | | LABORATORY | | | | [address];[place] | | | | | | [address] | | | | + + + + + + + + | Specimen | + + | | + + + + + + + | Performing | Address | City/State/Zipcode | Phone Number | | Organization | | | | + + + + + | [facility] | [address] | [place] [address] | [phone] | + + + + + POC Glucose (04/06/2019 4:29 PM PST) + + + + + + | Component | Value | Ref Range | Performed | Pathologist | | | | | At | Signature | + + + + + + | Glucose, | 173 (H)Comment: Testing | 65 - 99 mg/dL | [facility] | | | POC | performed at [facility];[address] | | LABORATORY | | | | [address];[place], [place] | | | | | | [address] | | | | + + + + + + + + | Specimen | + + | | + + + + + + + | Performing | Address | City/State/Zipcode | Phone Number | | Organization | | | | + + + + + | [facility] | [address] | [place] [address] | [phone] | + + + + + Culture, [...] LABORATORY | | | | Blvd;[place] [address] | | | | + + + + + + | RESULT | 1+NORMAL SKIN CELSA | | [facility] | | | | ISOLATED | | LABORATORY | | | | | | | | + + + + + + | RESULT | NO FURTHER WORKUP | | [facility] | | | | | | LABORATORY | | + + + + + + | RESULT | Testing performed at | | [facility] | | | | [facility], [address] | | LABORATORY | | | | [place] | | | | | | [id number]: Testing | | | | | | performed at [facility], [address] | | | | | | [address] [place] | | | | | | [address] | | | | + + + + + + + + | Specimen | + + | Body Fluid - Entire | | heel (body | | structure) | + + + + + + + | Performing | Address | City/State/Zipcode | Phone Number | | Organization | | | | + + + + + | [facility] | [address] | [place] [address] | [phone] | + + + + + Culture, [...] | | LABORATORY | | | | Blvd;[place] [address] | | | | + + + [...] Comment: Testing | | | performed at [facility], | | | [address], | | | [place] [address] | +---+ + + + + + + | Performing | Address | City/State/Zipcode | Phone Number | | Organization | | | | + + + + + | [facility] | [address] | [place] [address] | [phone] | + + + + + Ferritin (04/06/2019 2:30 PM PST) + + + + + + | Component | Value | Ref Range | Performed | Pathologist | | | | | At | Signature | + + + + + + | Ferritin | 62Comment: Testing | 11 - 450 ng/mL | [facility] | | | | performed at [facility], [address] | | LABORATORY | | | | [place] [place], | | | | | | [place] [address] | | | | + + + + + + + + | Specimen | + + | Blood | + + + + + + + | Performing | Address | City/State/Zipcode | Phone Number | | Organization | | | | + + + + + | [facility] | [address] | [place] [address] | [phone] | + + + + + Vitamin [...] [facility] | | | | performed at [facility], [address] | | LABORATORY | | | | [address], | | | | | | [place] [address] | | | | + + + + + + + + | Specimen | + + | Blood | + + + + + + + | Performing | Address | City/State/Zipcode | Phone Number | | Organization | | | | + + + + + | [facility] | [address] | [place] [address] | [phone] | + + + + + Troponin I (04/06/2019 2:30 PM PST) + + + + + + | Component | Value | Ref Range | Performed | Pathologist | | | | | At | Signature | + + + + + + | Troponin I | 0.161 (H)Comment: 0.04 | 0.00 - 0.04 | [facility] | | | | ng/mL [...] at | | | | | | [facility];[address] | | | | | | [place] [address] | | | | + + + + + + + + | Specimen | + + | Blood | + + + + + + + | Performing | Address | City/State/Zipcode | Phone Number | | Organization | | | | + + + + + | [facility] | [address] | [place] [address] | [phone] | + + + + + POC [...] | | | POC | performed at [facility];[address] | | LABORATORY | | | | [address];[place] | | | | | | [address] | | | | + + + + + + + + | Specimen | + + | | + + + + + + + | Performing | Address | City/State/Zipcode | Phone Number | | Organization | | | | + + + + + | [facility] | [address] | [place] [address] | [phone] | + + + + + VAS [...] Testing | 65 - 99 mg/dL | [facility] | | | POC | performed at [facility];[address] | | LABORATORY | | | | [address];[place] | | | | | | [address] | | | | + + + + + + + + | Specimen | + + | | + + + + + + + | Performing | Address | City/State/Zipcode | Phone Number | | Organization | | | | + + + + + | [facility] | [address] | [place] [address] | [phone] | + + + + + Troponin I (04/06/2019 8:31 AM PST) + + + + + + | Component | Value | Ref Range | Performed | Pathologist | | | | | At | Signature | + + + + + + | Troponin I | 0.19 (H)Comment: 0.04 | 0.00 - 0.04 | [facility] | | | | ng/mL [...] at | | | | | | [facility];[address] [facility] | | | | | | [facility];[place] [address] | | | | + + + + + + + + | Specimen | + + | Blood | + + + + + + + | Performing | Address | City/State/Zipcode | Phone Number | | Organization | | | | + + + + + | [facility] | [address] | [place] [address] | [phone] | + + + + + XR [...] LABORATORY | | | | Blvd;[place] [address] | | | | + + + + + + | RESULT | NO GROWTH 6 DAYS | | [facility] | | | | | | LABORATORY | | + + + + + + | RESULT | Testing performed at | | [facility] | | | | [facility], [address] [facility] | | LABORATORY | | | | [place], [place], [place] | | | | | | [id number]: Testing | | | | | | performed at [facility], [address] | | | | | | [facility], [place], [place] | | | | | | [address] | | | | + + + + + + + + | Specimen | + + | Blood - Peripheral | | blood specimen | | (specimen) | + + + + + + + | Performing | Address | City/State/Zipcode | Phone Number | | Organization | | | | + + + + + | [facility] | [address] | [place] [address] | [phone] | + + + + + Culture, [...] LABORATORY | | | | Blvd;[place] [address] | | | | + + + + + + | RESULT | NO GROWTH 6 DAYS | | [facility] | | | | | | LABORATORY | | + + + + + + | RESULT | Testing performed at | | [facility] | | | | [facility], [address] | | LABORATORY | | | | [place], [place] | | | | | | [id number]: Testing | | | | | | performed at [facility], [address] | | | | | | [address] [place], [place] | | | | | | [address] | | | | + + + + + + + + | Specimen | + + | Blood - Peripheral | | blood specimen | | (specimen) | + + + + + + + | Performing | Address | City/State/Zipcode | Phone Number | | Organization | | | | + + + + + | [facility] | [address] | [place] [address] | [phone] | + + + + + B [...] | | LABORATORY | | | | [facility];[address] | | | | | | [address]vd;[place] [address] | | | | + + + + + + + + | Specimen | + + | | + + + + + + + | Performing | Address | City/State/Zipcode | Phone Number | | Organization | | | | + + + + + | [facility] | [address] | [place] [address] | [phone] | + + + + + Lipid [...] | | | Calculated | performed at [facility], [address] | | LABORATORY | | | | [address], | | | | | | [place] [address] | | | | + + + + + + + + | Specimen | + + | Blood | + + + + + + + | Performing | Address | City/State/Zipcode | Phone Number | | Organization | | | | + + + + + | [facility] | [address] | [place] [address] | [phone] | + + + + + Hemoglobin A1C (04/06/2019 2:48 AM PST) + + + + + + | Component | Value | Ref Range | Performed | Pathologist | | | | | At | Signature | + + + + + + | Hemoglobin | 7.8 (H)Comment: HbA1c | 4.0 - 6.0 % | [facility] | | | A1c | [...] | 177 (H)Comment: | <154 mg/dL | [facility] | | | Average | Estimated Average | | LABORATORY | | | Glucose | Glucose calculated from | | | | | | hemoglobin A1c by use of | | | | | | the ADArecommended | | | | | | formula.Testing | | | | | | performed at [facility], [address] | | | | | | [address], | | | | | | [place] [address] | | | | + + + + + + + + | Specimen | + + | Blood | + + + + + + + | Performing | Address | City/State/Zipcode | Phone Number | | Organization | | | | + + + + + | [facility] | [address] | [place] [address] | [phone] | + + + + + Magnesium (04/06/2019 2:48 AM PST) + + + + + + | Component | Value | Ref Range | Performed | Pathologist | | | | | At | Signature | + + + + + + | Magnesium | 1.4 (L)Comment: Testing | 1.7 - 2.4 mg/dL | [facility] | | | | performed at [facility], [address] | | LABORATORY | | | | [address], | | | | | | [place] [address] | | | | + + + + + + + + | Specimen | + + | Blood | + + + + + + + | Performing | Address | City/State/Zipcode | Phone Number | | Organization | | | | + + + + + | [facility] | [address] | [place] [address] | [phone] | + + + + + Comprehensive [...] | | | | | performed at [facility], [address] | | | | | | [address], | | | | | | [place] [address] | | | | + + + + + + + + | Specimen | + + | Blood | + + + + + + + | Performing | Address | City/State/Zipcode | Phone Number | | Organization | | | | + + + + + | [facility] | [address] | [place] [address] | [phone] | + + + + + CBC [...] | | | | | | at [facility];[address] | | | | | | [address];[place] [address] | | | | | |NORMAL [address]T MORPH | | | | | |Testing performed at [facility];[address] [facility];[place] [address] | | | | | | | | | | + + + + + + + + | Specimen | + + | Blood | + + + + + + + | Performing | Address | City/State/Zipcode | Phone Number | | Organization | | | | + + + + + | [facility] | [address] | [place] [address] | [phone] | + + + + + Protime INR (04/06/2019 2:48 AM PST) + + + + + + | Component | Value | Ref Range | Performed | Pathologist | | | | | At | Signature | + + + + + + | INR | 1.2Comment: REFERENCE | | [facility] | | | | RANGE:0.9 - [...] | | | | | performed at [facility];[address] | | | | | | [address];[place] | | | | | | [address] | | | | + + + + + + + + | Specimen | + + | Blood | + + + + + + + | Performing | Address | City/State/Zipcode | Phone Number | | Organization | | | | + + + + + | [facility] | [address] | [place] [address] | [phone] | + + + + + PTT (04/06/2019 2:48 AM PST) + + + + + + | Component | Value | Ref Range | Performed | Pathologist | | | | | At | Signature | + + + + + + | PTT | 34 (H)Comment: Testing | 23 - 32 seconds | [facility] | | | | performed at [facility];[address] | | LABORATORY | | | | [address];[place] | | | | | | [address] | | | | + + + + + + + + | Specimen | + + | Blood | + + + + + + + | Performing | Address | City/State/Zipcode | Phone Number | | Organization | | | | + + + + + | [facility] | [address] | [place] [address] | [phone] | + + + + + Troponin I (04/06/2019 2:48 AM PST) + + + + + + | Component | Value | Ref Range | Performed | Pathologist | | | | | At | Signature | + + + + + + | Troponin I | 0.198 (H)Comment: 0.04 | 0.00 - 0.04 | [facility] | | | | ng/mL [...] at | | | | | | [facility];[address] [facility] | | | | | | Blvd;[place] [address] | | | | + + + + + + + + | Specimen | + + | Blood | + + + + + + + | Performing | Address | City/State/Zipcode | Phone Number | | Organization | | | | + + + + + | [facility] | [address] | [place] [address] | [phone] | + + + + + documented [...]
--- OUTSIDE RECORDS SUMMARY | ~2019-08-08 | XMS | Encounter Summary ---
Demographics + + + | Address | [address] | | | [place] [address] | + + + | Home Phone [...] | Organization | [facility] | | | and [place] | + + + | Address | Unknown | + + + | Phone | Unavailable | + + + Support + + + + + | Name | Relationship | Address | Phone | + + + + + | Jessica Amezquita | ECON | [address] | | | | | [place] | | | | | [address] | | + + + + + | Bel Solis | ECON | Unknown | | + + + + + Care Team Providers + +------+ + | Care Manufacturing Chief Engineer Name | Role | Phone | + +------+ + | Dian Lr NP | PCP | | + +------+ + Encounter Details +--------+ + + + + | Date | Type | Department | Care Team | Description | +--------+ + + + + | 05/14/ | Hospital | [facility] | Marlin Mckeon | Received intravenous | | 2017 - | Encounter | [facility] | MD [place] [address] | tissue plasminogen | | | | CARE FLOOR [address] [place], [place] | activator (tPA) in | | 05/19/ | | [facility] | [id number] | emergency | | 2017 | | [place], [place] | | department; Acute | | | | [address] | | left hemiparesis | | | | [phone] | | ([facility]); Type [...] Date of Service: 05/19/16 105 Status: Signed Telegraph Operator: Jeff Corley DO (Physician) [facility]: Hospitalist Discharge Summary Date of [...] edema Skin - dry no erythema Disposition: [facility] Condition: Stable Code Status: Full Code Discharge [...] Tolerated Follow up: Saurabh Fritz DO [address] [address] Medication List START taking these medications atorvastatin [...] Date of Service: 05/19/16 1231 Status: Signed Telegraph Operator: Sandra Cedillo RN (Registered Nurse) Report given to ELLIOT Márquez at [facility]. Pt aware of transfer plan. Facility van to pick pt up at 1300. onver elder Transaction, Provider Unknown - 05/19/2016 11:41 AM PST Case Management by Lisa Hogan RN at 05/19/16 1141 Author: Lisa Hogan RN Service: (none) Author Type: Registered Nurse Filed: 05/19/16 1142 Date of Service: 05/19/16 1141 Status: Signed Telegraph Operator: Lisa Hogan RN (Registered Nurse) 05/19/16 1128 Anticipated Disposition Facility Type senior living facility Discharge Appointment Time 1300 Medicare Important Message (ROS) Given Nursing Home Facility Other (comment) ([facility]) Disposition: [facility] Transportation: W/C van provided by facility All orders, signed AVS, and prescriptions have been faxed All DC paperwork completed Patient and family in agreement with discharge plan Medicare important message (Given or N/A): yes Tc to spouse Jessica who agrees with d/c plan to [facility]. Negar onver elder Transaction, Provider Unknown - 05/19/2016 11:40 AM PST Therapy Progress Note by Theresa Gonzales PT at 05/19/16 1140 Author: Theresa Gonzales PT Service: (none) Author Type: Physical Therapist Filed: 05/19/16 1140 Date of Service: 05/19/16 1140 Status: Signed Telegraph Operator: Theresa Gonzales PT (Physical Therapist) 05/19/16 [...] Author: HARIS Lemon Service: (none) Author Type: Education Paraprofessional Filed: 05/19/16 1114 Date of Service: 05/19/16 1102 Status: Signed Telegraph Operator: HARIS Lemon (Education Paraprofessional) 05/19/16 1100 Discharge Planning Evaluation Admitting Diagnosis CVA, TPA given Anticipated Disposition Facility Type senior living facility Nursing Home Facility Other (comment) ([facility]) INSPECTOR RAG SORTING p/c Cherly Bashir [facility] Coordinator, states she received phone call from [facility] W Evelia, asking for authorization. INSPECTOR RAG SORTING assisted Pt and Pt (Jessica Devyn [phone]) regarding [facility] form, assisted with form and faxed to [facility] Coordinator - Cheryl Bashir [phone] ext. [phone]. During filli ng out [facility] form, Pt stated "We wanted [facility] Derek Reed over [facility], but we were told [facility] was denied by [place]." INSPECTOR RAG SORTING provided choice of accepting facili ties. INSPECTOR RAG SORTING p/c Carlos with [facility] states they will accept Pt, they are VA contracted, if Pt choice. INSPECTOR RAG SORTING met with Negar ZARATE regarding the discrepancy of information about Pt choice. INSPECTOR RAG SORTING with Negar ZARATE met with Pt and Pt (Jessica Amezquita) regarding choice, after lengthy discussion, they went back and forth regarding facilities, Pt finally chose [facility]. DCP: [facility] NAOMY BOGGSSTANLEY, Education Paraprofessional [phone] cell onver elder Transaction, Provider Unknown - 05/19/2016 8:06 AM PST Case Management by Lisa Hogan RN at 05/19/16 0806 Author: Lisa Hogan RN Service: (none) Author Type: Registered Nurse Filed: 05/19/161111 Date of Service: 05/19/16805 Status: Addendum Telegraph Operator: Lisa Hogan RN (Registered Nurse) Related Notes: Original Note by Lsia Hogan RN (Registered Nurse) filed at 05/19/16 082 1 0800:Tc to Carlos at [facility]/[phone] re VA benefits and acceptance. Tc to Jessica, she states she rather have pt go to [facility] and not [facility]/. Went to meet with pt and he spoke to Jessica over the phone and agrees with going to [facility]. Tc to Jimmy at [facility], left [facility] re acceptance. 1030: per Jimmy, they can [...] Note by Hero You RN at 05/19/16 9155 Author: Hero You RN Service: (none) Author Type: Registered Nurse Filed: 05/19/16 0525 Date of Service: 05/19/16524 Status: Signed Telegraph Operator: Hero You RN (Registered Nurse) No acute changes from previous end of shift report. Will continue monitoring. Hero You RN 05/19/2016 onver elder Transaction, Provider Unknown - 05/18/2016 6:32 PM PST Nurse Progress Note by Sandra Cedillo RN at 05/18/161831 Author: Sandra Cedillo RN Service: (none) Author Type: Registered Nurse Filed: 05/18/161833 Date of Service: 05/18/161831 Status: Signed Telegraph Operator: Sandra Cedillo RN (Registered Nurse) Pt [...] Date of Service: 05/18/16 1252 Status: Signed Telegraph Operator: Jeff Corley DO (Physician) PROGRESS NOTE [...] had an extended conversation with c ase inside sales territory manager about which SNF's/towns he liked and [...] 05/18/2016 11:50 AM PST Progress Notes by Jnen Richey RD at 05/18/16 5593 Author: Jenn Richey RD Service: (none) Author Type: Registered Dietitian Filed: 05/18/16 1155 Date of Service: 05/18/16 1150 Status: Signed Telegraph Operator: Jenn Richey RD (Registered Dietitian) 05/18/16 105 Subjective Timepoint Follow up Pt c/o In [...] Physical Findings Digestive System (Mouth to Rectum) OWNER MANAGER following for dysphagia Anthropometrics Weight change Wt [...] Date of Service: 05/18/16 1131 Status: Addendum Telegraph Operator: Lisa Hogan RN (Registered Nurse) Related Notes: Original Note by Lisa Hogan RN (Registered Nurse) filed at 05/18/16 154 2 1000: Tc melyssa Olmedo([phone] ext [phone]) with VA "Gec" program regardign snf placemen t. Per Ly, pt needs to go to a VA contracted snf if he wants the VA to provide for copay after his medicare coverage no longer pays 100%. Ly statesthese are some available VA c ontracted snfs: [facility], [facility], [facility], [facility]. RR a nd Jessie are not contracted with them. Per Ly, if paperwork(PT/MD notes and GEC form ) is submitted now, they can admit pt to a VA contracted snf under VA benefits. Informed Salo wang will discuss with pt and spouse Jessica. Per email from Sheila with IPR, pt declined for IPR. 1130:Tc to Jinny/[facility], she states pt rugby union footballer nurse's note, pt has been restless an d educational therapist light continously and on IV fentanyl, she is not sure she has the man power to acc ept pt. 1200: Tc to spouse Jessica, , [facility] regarding snf placement. Met with pt regarding snf and VA benefits. Pt states he will discuss with spouse, but would consider going to [place]/[facility]. Sent e-referrals. Pt states Jessica will be here this evening and would like to discuss with CM options. Informed pt [facility]) has accepted pt but they are not VA contracted. 1300: per rounding with pt, he wants referral sent to [facility] too. Referral sent. Referral sent to HARIS Nichols to assist with "GEC" paperwork for the VA 1500: Tc to Carlos with [facility]([phone]), he thinks pt can be accepted when medically roseann dy, but first have to review pt's VA benefits to make sure rehab is covered. Tc to Jessica again,([phone]) left [facility] about rehab placement. Attempted to call Shonda reilly at work,[phone], busy signal. 1530: per Jimmy at [facility], they can accept pt when he is medically ready and if he wants to go there. Notified pt onver elder Transaction, Provider Unknown - 05/18/2016 10:37 AM PST Progress Notes by Khadra Osman RD, DANNY at 05/18/16 1037 Author: Khadra Osman RD, CDE Service: (none) Author Type: Supervisor Ship Maintenance Services Filed: 05/18/16 1044 Date of Service: 05/18/16 1037 Status: Signed Telegraph Operator: Khadra Osman RD, CDE (Supervisor Ship Maintenance Services) Met with pt. Reports he's had diabetes for 6 years. He gets all medications through the [facility] for his diabetes. States his of 49 years also has insulin dependent diabetes. At [facility] he was prescribed: 50 units of [...] his blood sugar. Reports he's been through [employer] es education classes two times - but [...] the VA. Khadra Osman RD, MPH, CDE, Supervisor Ship Maintenance Services 05/18/2016 10:43 AM onver elder Transaction, Provider Unknown - 05/18/2016 4:36 AM PST Nurse Progress Note by Hero You RN at 05/18/16435 Author: Hero You RN Service: (none) Author Type: Registered Nurse Filed: 05/18/16436 Date of Service: 05/18/16435 Status: Signed Telegraph Operator: Hero You RN (Registered Nurse) Pts [...] 05/17/161701 Date of Service: 05/17/161699 Status: Signed Telegraph Operator: Sandra Cedillo RN (Registered Nurse) Pt [...] Date of Service: 05/17/16 1500 Status: Signed Telegraph Operator: Cheryl Rodney PT (Physical Therapist) 05/17/16 1500 PT Last Visit PT Received On 05/17/16 Reason for Treatment Stroke Requires PT Follow Up Yes Follow up PT Only? Yes (complexity) Assistance Required 2 person Communications Officer Needed No Precautions UE Precaution(s) LUE Precautions/WB [...] lift for transfer back to bed - RN/HAND CANDLE DIPPER aware of pt positioning/abilities and need for [...] Barriers to Discharge Cognitive Deficits Impacting Functional [place];Self-care Defici ts Impacting Functional [place];Physical Deficits Impacting Functional [place];Malik rological Impairment (see comment) Recommendation Comments Pt [...] Date of Service: 05/17/16 1238 Status: Addendum Telegraph Operator: Jeff Corley DO (Physician) Related Notes: [...] working with patient, hope to transfer to [facility] pending insurance authorization (dc siobhan). May need to follow with vascular [...] Management by Lisa Hogan RN at 05/17/16 8713 Author: Lisa Hogan RN Service: (none) Author Type: Registered Nurse Filed: 05/17/16 1145 Date of Service: 05/17/16 5800 Status: Addendum Telegraph Operator: Lisa Hogan RN (Registered Nurse) Related Notes: Original Note by Lisa Hogan RN (Registered Nurse) filed at 05/17/16 130 3 Per rounding with pt, he is A&O x4. Pending IPR. Sent email to Sheila at [facility] for status. Left VM for PT regarding f/u with pt 1230:Tc to spouse Jessica regarding snf placement in case IPR declines pt. Jessica upset as s he thought "doctor" had told her son yesterday that pt was a good candidate for IPR and was accepted to [facility]. Informed Jessica Machado has not made decision yet as he is "following pt". Jessica wants referrals sent to Jessie/[facility] , [facility] and [facility]. Jessica asks that we dont mention to pt snf placement yet until a decision i s made about IPR. Negar onver elder Harris, Provider Unknown - 05/17/2016 10:05 AM PST Therapy Progress Note by TOLU Xiao/Parminder at 05/17/16 1005 Author: GABE Xiao Service: (none) Author Type: Occupational Therapist Filed: 05/17/16 1240 Date of Service: 05/17/16 1005 Status: Signed Telegraph Operator: GABE Xiao (Occupational Therapist) 05/17/16 1005 OT Last Visit OT Received On 05/17/16 Reason for Treatment Stroke Requires OT Follow Up Awaiting tx order OT Eval/Reassessment Date 05/17/16 Assistance Required 2 person Communications Officer Needed No Family/Caregiver Present No Precautions Other Precautions high fall risk, L hemiparesis Other Comments Comments OT eval orders received/verified. Pt willing to participate in OT this AM. Chart r eviewed-relevant to OT evaluation: Left sided weakness, s/p IV rtPA with little improvement, due to right bogdan infarction, most likely hcukzl-pq-ginicj in etiology related to uncontrol led DM; [...] Days Recommendation Recommendation Rehab consult Equipment Recommended Digital Archivist;Bedside commode;Elastic shoe laces;[facility] Ready for Discharge Yes (may [...] note for PLOF Prior Function Level of [place] Independent with functional mobility;Independent with ADLs;Independe nt [...] equipment (bed level) LE Dressing Adaptive Equipment Digital Archivist;Dressing stick Arm Goals Pt Will Tolerate SROM [...] order Recommendation Recommendation Rehab consult Equipment Recommended Digital Archivist;Bedside commode;Elastic shoe laces;[facility] OT Ready for Discharge [...] stroke, neurological resource center guide Moderate - 42126 High - 55115 History Expanded review of medical records; additional review of physical, cognitive, or ps ychosocial skills Examination Identification of 5 or more performance deficits Decision Making Presents with comorbidities; significant modification of tasks or assistan ce is needed to complete eval Clinical Decision Making Complexity: Moderate 82161 onver elder Transaction, Provider Unknown - 05/17/2016 5:44 AM PST Nurse Progress Note by Hero You RN at 05/17/16543 Author: Hero You RN Service: (none) Author Type: Registered Nurse Filed: 05/17/1650 Date of Service: 05/17/16543 Status: Signed Telegraph Operator: Hero You RN (Registered Nurse) Pts [...] 05/16/161652 Date of Service: 05/16/161651 Status: Addendum Telegraph Operator: Teena Matthew RN (Registered Nurse) Related Notes: Original Note by Teena Matthew RN (Registered Nurse) filed at 2415 No change from previous assessment. VSS, hourly [...] 05/16/161513 Date of Service: 05/16/161511 Status: Signed Telegraph Operator: Wing Nina Machado MD (Physician) Patient [...] Calculation (Bezet) 05/14/2016 455 Final Calculated P [place] 05/14/2016 28 Final Calculated R [place] 05/14/2016 -3 Final Calculated T [place] 05/14/2016 38 Final Diagnosis 05/14/2016 Final Value:Normal [...] by HARIS De La Garza at 05/16/16 1239 Author: HARIS De La Garza Service: (none) Author Type: Cheese Wrapper Filed: 05/16/16 9319 Date of Service: 05/16/16 2458 Status: Signed Telegraph Operator: HARIS De La Garza (Cheese Wrapper) 05/16/16 1201 Discharge Planning Evaluation Admitting Diagnosis [...] Yes Name of Pharmacy [facility] in [place], [place] or the [place] Previous home health equipment Yes;Comment (Pt uses [...] disease, and TBI who initially presented to [facility] with left facial droop and left-sided weakness. He had an episode of urinary incontinence and fall, EMS called and patient was brought to [place]' ED. " "Patient is also complaining of a 3-week history of intermittent left-sided weakness and fal ls. He uses a cane for ambulation." Patient's PCP is: Patient's insurance: [employer] & Medicare Coverage concerns: no Medication coverage/concerns: no Rx Bedside Delivery: Preferred Pharmacy: [facility] [place] or [facility] Community resources utilized / needed: TBD Assistance in transportation: Spouse - Jessica Amezquita [phone] or work [phone] Identification of any specific education / training: no Barriers to Discharge / Alternative housing needed: TBD Anticipated DCP: Home DWIGHT De La Garza John Hill MD - 05/16/2016 8:26 AM PST Progress Notes by John Myrick MD at 05/16/16 08 Author: John Myrick MD Service: (none) Author Type: Physician Filed: 05/16/16 1131 Date of Service: 05/16/16825 Status: Addendum Telegraph Operator: John Myrick MD (Physician) Related Notes: Original Note by John Myrick MD (Physician) filed at 05/16/16 1108 [facility]: Hospitalist Progress Note Pt: Reagan Amezquita AGE/SEX: 71 y.o. male : 1945 ROOM: [address] [place] [address] REQUESTING PROVIDER: John Myrick MD TODAY'S DATE: 05/16/2016 Hospital Day: LOS: 2 days + past medical history of DM 2 with neuropathy, DDD and TBI Transfer from [facility] seen there with left facial droop and left-sided weakness.,episode of urinary incontin ence and fall, .Acute infarction in the right bogdan, CT head unremarkablMRI e, no ICH. As N IHSS score of 14 TPA Was givien tranfer to [facility] for further care SUBJECTIVE aprt from witness [...] hours. No results for input(s): PHART, PO2ART, BNE7EVZ, D2TXNZKU, BEART in the last 168 hours. 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 2- [...] per patient and no documen tation), recommend manager terminal Holter (30 days). 8. General care including [...] Date of Service: 05/16/16 0513 Status: Signed Telegraph Operator: Hero You RN (Registered Nurse) Pt [...] 05/15/161938 Date of Service: 05/15/161930 Status: Addendum Telegraph Operator: Sandra Cedillo RN (Registered Nurse) Related [...] Date of Service: 05/15/16 1242 Status: Signed Telegraph Operator: Douglas Coelho PT (Physical Therapist) 05/15/16 1242 PT Last Visit PT Received On 05/15/16 Reason for Treatment Stroke Requires PT Follow Up Awaiting tx order Follow up PT Only? Yes (complexity) PT Eval/Reassessment Date 05/15/16 Assistance Required 2 person Communications Officer Needed No Home Environment Type of Home Home two story Home Exterior Layout Entry steps none Home Interior Layout Flight one;Rail on L ascending;Lives on main level with bedroom/bathro om;Walker accessible Bathroom Shower/Tub Tub/shower unit Bathroom Toilet Standard Bathroom Equipment Hand-held shower head;Tub transfer bench Bathroom Accessibility Accessible via walker Home Equipment Walker 4 wheeled;Cane single point Prior Function Level of [place] Independent with functional mobility;Independent with ADLs;Independe nt [...] Barriers to Discharge Cognitive Deficits Impacting Functional [place];Physical Deficit s Impacting Functional [place];Self-care Deficits Impacting Functional [place];Malik rological Impairment (see comment) Recommendation Comments pt. needs Max x 2 for transfers and mobility and should benefit fro m SNF to improve strength, endurance and functional mobility 05/15/16 1242 PT Last Visit PT Received On 05/15/16 Reason for Treatment Stroke Requires PT Follow Up Awaiting tx order Follow up PT Only? Yes (complexity) PT Eval/Reassessment Date 05/15/16 Assistance Required 2 person Communications Officer Needed No Precautions UE Precaution(s) LUE Precautions/WB [...] Barriers to Discharge Cognitive Deficits Impacting Functional [place];Physical Deficit s Impacting Functional [place];Self-care Deficits Impacting Functional [place];Malik rological Impairment (see comment) Recommendation Comments pt. needs Max x 2 for transfers and mobility and should benefit fro m SNF to improve strength, endurance and functional mobility Low - 66149 Moderate - 22992 High - 63123 History no personal factors &/or comorbidities 1-2 personal factors &/or comorbidities 3 o r more personal factors &/or comorbidities Examination 1-2 elements 3 elements 4 or more elements Clinical Presentation stable evolving unstable Clinical Decision Making Complexity: Low 91427 Moderate 18701 High 57241 Viviana Ferrer ARNP - 05/15/2016 9:41 AM PSTFormatting of this note might be different from stephanie brown original. Progress Notes by RUBEN Atkins at 05/15/16 09 Author: RUBEN Atkins Service: Technology Resource Teacher Author Type: Advanced Registered Nu rse Practitioner Filed: 05/15/16 1345 Date of Service: 05/15/16940 Status: Signed Telegraph Operator: RUBEN Atkins (Advanced Registered Nurse Practitioner) [facility]: Technology Resource Teacher Progress Note Reagan Amezquita 71 y.o. Hospital [...] disease, and TBI who initially presented to [facility] with left facial droop and left-sided weakness. He had an episode of uri nary incontinence and fall, EMS called and patient was brought to [facility] ED. Patient was last seen normal on [...] of 14. Follow up on arrival to [facility] 9. Dr. Bernardo following Keep BP < 180/105 mmHg, brain MRI 24 hours post-TPA with no e/o hemorrhage. Keep normoth ermic, normoglycemic. PT/OT/OWNER MANAGER following. ? cardioembolic as cause for ischemic [...] On room air. GI/NUTRITION: Moderate protein-calorie malnutrition: [place] thick liquids per OWNER MANAGER recs. GERD: on protonix at home. Continue [...] Service: Neurology Author Type: Physician Filed: 05/15/16 5430 Date of Service: 05/15/16912 Status: Signed Telegraph Operator: Angelica Bernardo MD (Physician) Subjective: Patient [...] due to right bogdan infarction, most likely cewvns-ae-gfopen in etiology related to uncontrolled DM. 2- [...] per patient and no documen tation), recommend snf Holter (30 days). 9. Consult PT, OT, [...] 05/14/161528 Date of Service: 05/14/161528 Status: Signed Telegraph Operator: Pretty Dhillon RD, CD (Registered Dietitian) 05/14/16 9398 Subjective Timepoint Admit (dysphagia) Pt c/o Pt [...] Fluid / Beverage Intake Oral Fluids Amount [place] thick liquids ad bryant. Ok for 1 [...] subcutaneous fat. Digestive System (Mouth to Rectum) OWNER MANAGER following for dysphagia. Skin Intact. Anthropometrics Weight [...] Estimated Energy Needs Total Energy Estimated Needs 2893-8356 kcal/day Method for Estimating Needs 25-30 kcal/kg admit wt (84.7 kg) Estimated Protein Needs Total Protein Estimated Needs 102-127 g protein/day Method for Estimating Needs 1.2-1.5 g protein/kg admit wt (84.7 kg) Recommendations Recommended energy needs Recommend adding diabetic diet restrictions to current OWNER MANAGER diet or nigel to help optimize glycemic [...] Therapy Progress Note by Kate Hale MA CCC-OWNER MANAGER at 05/14/16911 Author: Kate Hale MA CCC-OWNER MANAGER Service: (none) Author Type: Speech and Language Patholo gist Filed: 05/14/1645 Date of Service: 05/14/16911 Status: Signed Telegraph Operator: Kate Hale MA CCC-OWNER MANAGER (Speech and Language Pathologist) 05/14/16911 OWNER MANAGER Last Visit OWNER MANAGER Received On 05/14/16 Requires OWNER MANAGER Follow Up Yes Swallowing Assessment Eval Swallowing [...] 1/2 trials by cup, none by spoon) [place] Presentation Cup;Self Fed Oral WFL Pharyngeal Phase [...] Larynge al Elevation Recommendations Liquids Consistency Recommendations [place] thick;Ice chips for oral comfort Diet Consistency [...] diet textures, no awareness until cued by OWNER MANAGER. At this time, recommen d puree diet [...] monitoring;Patient/Family education; Assessment for upgrade Dysphagia Goals Skilled Nursing Goals Safe/efficient oral intake Pt will have safe/efficient oral intake Thin liquids;Mechanical soft diet;With min cues;Ne w/revised goal Short Term Goals Tolerate liquid consistency Pt will tolerate tolerate liquid consistency [place] thick liquids;with 1:1 supervision;New /revised goal onver elder Transaction, Provider Unknown - 05/14/2016 9:12 AM PST Therapy Progress Note by Zenon Schaeffer PT at 05/14/16911 Author: Zenon Schaeffer PT Service: Physical Medicine and Rehab Author Type: Physical Therapist Filed: 05/14/16 1556 Date of Service: 05/14/16911 Status: Signed Telegraph Operator: Zenon Schaeffer PT (Physical Therapist) 05/14/16911 PT Last Visit PT Received On 05/14/16 (Per notes received tPA around 2 a.m. Will hold PT to allow) Requires PT Follow Up On hold (24 hour therapeutic window s/p tPA) onver elder Transaction, Provider Unknown - 05/14/2016 5:57 AM PST Progress Notes by Iggy Lee RPH at 05/14/16 0557 Author: Iggy eLe RPH Service: Pharmacy Author Type: Pharmacist Filed: 05/14/16 0557 Date of Service: 05/14/16556 Status: Signed Telegraph Operator: Iggy Lee RPH (Pharmacist) Pharmacy will [...] | | | Fingerstick | performed at [facility];[address] | | LAB | | | | [address];[place], [place] | | | | | | [address] | | | | + + + [...] | | | Fingerstick | performed at [facility];[address] | | LAB | | | | [address];[place], [place] | | | | | | [address] | | | | + + + [...] | | | Fingerstick | performed at [facility];[address] | | LAB | | | | [place] [address] | | | | | | [address] | | | | + + + [...] | | | Fingerstick | performed at [facility];[address] | | LAB | | | | [place] [address] | | | | | | [address] | | | | + + + [...] | | | Fingerstick | performed at [facility];[address] | | LAB | | | | [place] | | | | | | [address] | | | | + + + [...] | | | Fingerstick | performed at [facility];[address] | | LAB | | | | [address];[place], [place] | | | | | | [address] | | | | + + + [...] EXTERNAL | | | | performed at [facility], [address] | K/uL | LAB | | | | [address], | | | | | | [place] [address] | | | | + + + + + + | Red Blood | 4.96Comment: Testing | 4.20 - 5.70 | EXTERNAL | | | Cells | performed at [facility], [address] | M/uL | LAB | | | Counted | [address], | | | | | | [place] [address] | | | | + + + + + + | Hemoglobin | 14.1Comment: Testing | 13.2 - 17.0 | EXTERNAL | | | | performed at [facility], [address] | g/dL | LAB | | | | [address], | | | | | | [place], [place] [address] | | | | + + + + + + | Hematocrit, | 40.8Comment: Testing | 39.0 - 50.0 % | EXTERNAL | | | POC | performed at [facility], [address] | | LAB | | | | [address], | | | | | | [place] [address] | | | | + + + + + + | MCV | 82.3Comment: Testing | 80.0 - 100.0 fl | EXTERNAL | | | | performed at [facility], [address] | | LAB | | | | [address], | | | | | | [place] [address] | | | | + + + + + + | MCH | 28.5Comment: Testing | 27.0 - 34.0 pg | EXTERNAL | | | | performed at [facility], [address] | | LAB | | | | [address], | | | | | | [place] [address] | | | | + + + + + + | MCHC | 34.6Comment: Testing | 32.0 - 35.5 | EXTERNAL | | | | performed at [facility], [address] | g/dL | LAB | | | | [address], | | | | | | [place] [address] | | | | + + + + + + | RDW-CV | 42.0Comment: Testing | 37 - 53 fl | EXTERNAL | | | | performed at [facility], [address] | | LAB | | | | [address], | | | | | | [place] [address] | | | | + + + + + + | Platelet | 219Comment: Testing | 150 - 400 K/uL | EXTERNAL | | | Count | performed at [facility], [address] | | LAB | | | Plasma | [address], | | | | | | [place] [address] | | | | + + + + + + | MPV | 8.6Comment: Testing | fl | EXTERNAL | | | | performed at [facility], [address] | | LAB | | | | [address], | | | | | | [place] [address] | | | | + + + + + + | Differentia | AUTOMATEDComment: | | EXTERNAL | | | l Type | Testing performed at | | LAB | | | | [facility], [address] | | | | | | [place] | | | | | | [address] | | | | + + + + + + | % Segmented | 65.52Comment: Testing | % | EXTERNAL | | | | performed at [facility], [address] | | LAB | | | Neutrophils | [address], | | | | | | [place] [address] | | | | + + + + + + | % | 22.13Comment: Testing | % | EXTERNAL | | | Lymphocytes | performed at [facility], [address] | | LAB | | | | [address], | | | | | | [place] [address] | | | | + + + + + + | % Monocytes | 9.16Comment: Testing | % | EXTERNAL | | | | performed at [facility], [address] | | LAB | | | | [address], | | | | | | [place] [address] | | | | + + + + + + | % | 2.44Comment: Testing | % | EXTERNAL | | | Eosinophils | performed at [facility], [address] | | LAB | | | | [address], | | | | | | [place] [address] | | | | + + + + + + | % Basophils | 0.75Comment: Testing | % | EXTERNAL | | | | performed at [facility], [address] | | LAB | | | | [address], | | | | | | [place] [address] | | | | + + + + + + | Absolute | 6.91Comment: Testing | 1.90 - 7.40 | EXTERNAL | | | Segmented | performed at [facility], [address] | K/uL | LAB | | | Neutrophils | [address], | | | | | | [place] [address] | | | | + + + + + + | Absolute | 2.33Comment: Testing | 1.00 - 3.90 | EXTERNAL | | | Lymphocytes | performed at [facility], [address] | K/uL | LAB | | | | [address], | | | | | | [place] [address] | | | | + + + + + + | Absolute | 0.97 (H)Comment: Testing | 0.00 - 0.80 | EXTERNAL | | | Monocytes | performed at [facility], [address] | K/uL | LAB | | | | [address], | | | | | | [place] [address] | | | | + + + + + + | Absolute | 0.26Comment: Testing | 0.00 - 0.50 | EXTERNAL | | | Eosinophils | performed at [facility], [address] | K/uL | LAB | | | | [address], | | | | | | [place] [address] | | | | + + + + + + | Absolute | 0.08Comment: Testing | 0.00 - 0.10 | EXTERNAL | | | Basophils | performed at [facility], [address] | K/uL | LAB | | | | [address], | | | | | | [place] [address] | | | | + + + [...] EXTERNAL | | | | performed at [facility], [address] | | LAB | | | | [address], | | | | | | [place] [address] | | | | + + + [...] EXTERNAL | | | | performed at [facility], [address] | | LAB | | | | [address], | | | | | | [place] [address] | | | | + + + [...] | | | | | [place] [address] | | | | + + + + + + | K | 4.1Comment: Testing | 3.5 - 4.9 | EXTERNAL | | | | performed at [facility], [address] | mmol/L | LAB | | | | [address], | | | | | | [place] [address] | | | | + + + + + + | Cl | 104Comment: Testing | 99 - 109 mmol/L | EXTERNAL | | | | performed at [facility], [address] | | LAB | | | | [address], | | | | | | [place] [address] | | | | + + + + + + | CO2 | 27Comment: Testing | 23 - 32 mmol/L | EXTERNAL | | | | performed at [facility], [address] | | LAB | | | | [address], | | | | | | [place] [address] | | | | + + + + + + | Anion Gap | 12Comment: Testing | 5 - 20 mmol/L | EXTERNAL | | | | performed at [facility], [address] | | LAB | | | | [address], | | | | | | [place] [address] | | | | + + + + + + | Glucose, | 143 (H)Comment: Testing | 65 - 99 mg/dL | EXTERNAL | | | Fasting | performed at [facility], [address] | | LAB | | | | [address], | | | | | | [place] [address] | | | | + + + + + + | BUN | 9Comment: Testing | 8 - 25 mg/dL | EXTERNAL | | | | performed at [facility], [address] | | LAB | | | | [address], | | | | | | [place] [address] | | | | + + + + + + | Creatinine | 0.6 (L)Comment: Testing | 0.70 - 1.30 | EXTERNAL | | | | performed at [facility], [address] | mg/dL | LAB | | | | [address], | | | | | | [place] [address] | | | | + + + + + + | BUN/Creatin | 15Comment: Testing | | EXTERNAL | | | ine Ratio | performed at [facility], [address] | | LAB | | | | [address], | | | | | | [place] [address] | | | | + + + + + + | Calcium | 8.6Comment: Testing | 8.5 - 10.5 | EXTERNAL | | | | performed at [facility], [address] | mg/dL | LAB | | | | [facility], | | | | | | [place] [address] | | | | + + + [...] W | | | | | | [facility], | | | | | | [place] [address] | | | | + + + [...] | | | Fingerstick | performed at [facility];[address] | | LAB | | | | [address];[place] | | | | | | [address] | | | | + + + [...] | | | Fingerstick | performed at [facility];[address] | | LAB | | | | [address];[place], [place] | | | | | | [address] | | | | + + + [...] | | | Fingerstick | performed at [facility];[address] | | LAB | | | | [address];[place], [place] | | | | | | [address] | | | | + + + [...] | | | Fingerstick | performed at [facility];[address] | | LAB | | | | [address];[place], [place] | | | | | | [address] | | | | + + + [...] | | [facility], [address] [facility] | | | | | | [place] | | | | | | [address] | | | | + + + + + + | Red Blood | 4.92Comment: Testing | 4.20 - 5.70 | EXTERNAL | | | Cells | performed at [facility], [address] | M/uL | LAB | | | Counted | [address], | | | | | | [place] [address] | | | | + + + + + + | Hemoglobin | 13.9Comment: Testing | 13.2 - 17.0 | EXTERNAL | | | | performed at [facility], [address] | g/dL | LAB | | | | [address], | | | | | | [place] [address] | | | | + + + + + + | Hematocrit, | 40.8Comment: Testing | 39.0 - 50.0 % | EXTERNAL | | | POC | performed at [facility], [address] | | LAB | | | | [address], | | | | | | [place] [address] | | | | + + + + + + | MCV | 83.0Comment: Testing | 80.0 - 100.0 fl | EXTERNAL | | | | performed at [facility], [address] | | LAB | | | | [address], | | | | | | [place] [address] | | | | + + + + + + | MCH | 28.3Comment: Testing | 27.0 - 34.0 pg | EXTERNAL | | | | performed at [facility], [address] | | LAB | | | [address], | | | | | | [place] [address] | | | | + + + + + + | MCHC | 34.0Comment: Testing | 32.0 - 35.5 | EXTERNAL | | | | performed at [facility], [address] | g/dL | LAB | | | | [address], | | | | | | [place] [address] | | | | + + + + + + | RDW-CV | 42.4Comment: Testing | 37 - 53 fl | EXTERNAL | | | | performed at [facility], [address] | | LAB | | | | [address], | | | | | | [place] [address] | | | | + + + + + + | Platelet | 215Comment: Testing | 150 - 400 K/uL | EXTERNAL | | | Count | performed at [facility], [address] | | LAB | | | Plasma | [address], | | | | | | [place] [address] | | | | + + + + + + | MPV | 8.5Comment: Testing | fl | EXTERNAL | | | | performed at [facility], [address] | | LAB | | | | [address], | | | | | | [place] [address] | | | | + + + + + + | Differentia | AUTOMATEDComment: | | EXTERNAL | | | l Type | Testing performed at | | LAB | | | | [facility], [address] | | | | | | [place] | | | | | | [address] | | | | + + + + + + | % Segmented | 70.19Comment: Testing | % | EXTERNAL | | | | performed at [facility], [address] | | LAB | | | Neutrophils | [address], | | | | | | [place] [address] | | | | + + + + + + | % | 17.93Comment: Testing | % | EXTERNAL | | | Lymphocytes | performed at [facility], [address] | | LAB | | | | [address], | | | | | | [place] [address] | | | | + + + + + + | % Monocytes | 8.97Comment: Testing | % | EXTERNAL | | | | performed at [facility], [address] | | LAB | | | | [address], | | | | | | [place] [address] | | | | + + + + + + | % | 2.27Comment: Testing | % | EXTERNAL | | | Eosinophils | performed at [facility], [address] | | LAB | | | | [address], | | | | | | [place] [address] | | | | + + + + + + | % Basophils | 0.64Comment: Testing | % | EXTERNAL | | | | performed at [facility], [address] | | LAB | | | | [address], | | | | | | [place] [address] | | | | + + + + + + | Absolute | 7.86 (H)Comment: Testing | 1.90 - 7.40 | EXTERNAL | | | Segmented | performed at [facility], [address] | [address] | LAB | | | Neutrophils | [address], | | | | | | [place] [address] | | | | + + + + + + | Absolute | 2.01Comment: Testing | 1.00 - 3.90 | EXTERNAL | | | Lymphocytes | performed at [facility], [address] | K/uL | LAB | | | | [address], | | | | | | [place] [address] | | | | + + + + + + | Absolute | 1.01 (H)Comment: Testing | 0.00 - 0.80 | EXTERNAL | | | Monocytes | performed at [facility], [address] | [address]/uL | LAB | | | | [address], | | | | | | [place] [address] | | | | + + + + + + | Absolute | 0.25Comment: Testing | 0.00 - 0.50 | EXTERNAL | | | Eosinophils | performed at [facility], [address] | K/uL | LAB | | | | [address], | | | | | | [place] [address] | | | | + + + + + + | Absolute | 0.07Comment: Testing | 0.00 - 0.10 | EXTERNAL | | | Basophils | performed at [facility], [address] | K/uL | LAB | | | | [address], | | | | | | [place] [address] | | | | + + + [...] EXTERNAL | | | | performed at [facility], [address] | | LAB | | | | [address], | | | | | | [place] [address] | | | | + + + [...] EXTERNAL | | | | performed at [facility], [address] | | LAB | | | | [address], | | | | | | [place] [address] | | | | + + + [...] | | | | | [place] [address] | | | | + + + + + + | K | 3.9Comment: Testing | 3.5 - 4.9 | EXTERNAL | | | | performed at [facility], [address] | mmol/L | LAB | | | | [address], | | | | | | [place] [address] | | | | + + + + + + | Cl | 103Comment: Testing | 99 - 109 mmol/L | EXTERNAL | | | | performed at [facility], [address] | | LAB | | | | [address], | | | | | | [place] [address] | | | | + + + + + + | CO2 | 25Comment: Testing | 23 - 32 mmol/L | EXTERNAL | | | | performed at [facility], [address] | | LAB | | | | [address], | | | | | | [place] [address] | | | | + + + + + + | Anion Gap | 15Comment: Testing | 5 - 20 mmol/L | EXTERNAL | | | | performed at [facility], [address] | | LAB | | | | [address], | | | | | | [place] [address] | | | | + + + + + + | Glucose, | 132 (H)Comment: Testing | 65 - 99 mg/dL | EXTERNAL | | | Fasting | performed at [facility], [address] | | LAB | | | | [address], | | | | | | [place] [address] | | | | + + + + + + | BUN | 9Comment: Testing | 8 - 25 mg/dL | EXTERNAL | | | | performed at [facility], [address] | | LAB | | | | [address], | | | | | | [place] [address] | | | | + + + + + + | Creatinine | 0.5 (L)Comment: Testing | 0.70 - 1.30 | EXTERNAL | | | | performed at [facility], [address] | mg/dL | LAB | | | | [address], | | | | | | [place] [address] | | | | + + + + + + | BUN/Creatin | 18Comment: Testing | | EXTERNAL | | | ine Ratio | performed at [facility], [address] | | LAB | | | | [address], | | | | | | [place] [address] | | | | + + + + + + | Calcium | 8.4 (L)Comment: Testing | 8.5 - 10.5 | EXTERNAL | | | | performed at [facility], [address] | mg/dL | LAB | | | | [address], | | | | | | [place] [address] | | | | + + + + + + | Protein, | 6.0 (L)Comment: Testing | 6.3 - 8.2 g/dL | EXTERNAL | | | Total | performed at [facility], [address] | | LAB | | | | [address], | | | | | | [place] [address] | | | | + + + + + + | Albumin | 3.0 (L)Comment: Testing | 3.3 - 4.8 g/dL | EXTERNAL | | | | performed at [facility], [address] | | LAB | | | | [address], | | | | | | [place] [address] | | | | + + + + + + | Globulin | 3.0Comment: Testing | 1.3 - 4.9 g/dL | EXTERNAL | | | | performed at [facility], [address] | | LAB | | | | [address], | | | | | | [place] [address] | | | | + + + + + + | A/G Ratio | 1.0Comment: Testing | 1.0 - 2.4 | EXTERNAL | | | | performed at [facility], [address] | | LAB | | | | [address], | | | | | | [place] [address] | | | | + + + + + + | Bilirubin | 1.4Comment: Testing | 0.1 - 1.5 mg/dL | EXTERNAL | | | Total | performed at [facility], [address] | | LAB | | | | [address], | | | | | | [place] [address] | | | | + + + + + + | ALP, | 77Comment: Testing | 35 - 115 U/L | EXTERNAL | | | External | performed at [facility], [address] | | LAB | | | | [address], | | | | | | [place] [address] | | | | + + + + + + | AST | 14Comment: Testing | 10 - 45 U/L | EXTERNAL | | | | performed at [facility], [address] | | LAB | | | | [address], | | | | | | [place] [address] | | | | + + + + + + | ALT | 13Comment: Testing | 10 - 65 U/L | EXTERNAL | | | | performed at [facility], [address] | | LAB | | | | [address], | | | | | | [place] [address] | | | | + + + [...] | | | | | [place] [address] | | | | + + + [...] | | | Fingerstick | performed at [facility];[address] | | LAB | | | | [place];[place] | | | | | | [address] | | | | + + + [...] | | | Fingerstick | performed at [facility];[address] | | LAB | | | | [address];[place], [place] | | | | | | [address] | | | | + + + [...] | | | to suboptimal images. MEASUREMENTS Rehabilitator: | | | KVW Authenticated by: Aleksandar [...] due to suboptimal images. MEASUREMENTS | | Rehabilitator: ELIZABETHuthenticated by: Aleksandar DotsonReport Date/Time: 05-16-2016 20:59:22 [...] | |MEASUREMENTS | | | | | |Rehabilitator: MARILUW | |Authenticated by: Aleksandar Dotson | [...] | | | Fingerstick | performed at [facility];[address] | | LAB | | | | [place];[place] | | | | | | [address] | | | | + + + [...] was also examined | | | with [employer] [employer] 3D software for evaluation of the cerebral [...] Conversion - 11/02/2018 6:55 AM PDT REAGAN [id number] years MaleCTA | | HEAD NECK W [...] The data set was also examined with [place] [employer] 3D software for evaluation of the cerebral [...] | | | | [facility], [address] [facility] | | | | | | [place] | | | | | | [address] | | | | + + + + + + | Red Blood | 4.77Comment: Testing | 4.20 - 5.70 | EXTERNAL | | | Cells | performed at [facility], [address] | M/uL | LAB | | | Counted | [facility], | | | | | | [place] [address] | | | | + + + + + + | Hemoglobin | 13.4Comment: Testing | 13.2 - 17.0 | EXTERNAL | | | | performed at [facility], [address] | g/dL | LAB | | | | [address], | | | | | | [place] [address] | | | | + + + + + + | Hematocrit, | 39.1Comment: Testing | 39.0 - 50.0 % | EXTERNAL | | | POC | performed at [facility], [address] | | LAB | | | | [address], | | | | | | [place] [address] | | | | + + + + + + | MCV | 82.0Comment: Testing | 80.0 - 100.0 fl | EXTERNAL | | | | performed at [facility], [address] | | LAB | | | | [address], | | | | | | [place] [address] | | | | + + + + + + | MCH | 28.0Comment: Testing | 27.0 - 34.0 pg | EXTERNAL | | | | performed at [facility], [address] | | LAB | | | | [address], | | | | | | [place] [address] | | | | + + + + + + | MCHC | 34.1Comment: Testing | 32.0 - 35.5 | EXTERNAL | | | | performed at [facility], [address] | g/dL | LAB | | | | [address], | | | | | | [place] [address] | | | | + + + + + + | RDW-CV | 42.9Comment: Testing | 37 - 53 fl | EXTERNAL | | | | performed at [facility], [address] | | LAB | | | | [address], | | | | | | [place] [address] | | | | + + + + + + | Platelet | 238Comment: Testing | 150 - 400 K/uL | EXTERNAL | | | Count | performed at [facility], [address] | | LAB | | | Plasma | [address], | | | | | | [place] [address] | | | | + + + + + + | MPV | 8.8Comment: Testing | fl | EXTERNAL | | | | performed at [facility], [address] | | LAB | | | | [address], | | | | | | [place] [address] | | | | + + + + + + | Differentia | AUTOMATEDComment: | | EXTERNAL | | | l Type | Testing performed at | | LAB | | | | [facility], [address] | | | | | | [place] | | | | | | [address] | | | | + + + + + + | % Segmented | 68.92Comment: Testing | % | EXTERNAL | | | | performed at [facility], [address] | | LAB | | | Neutrophils | [address], | | | | | | [place] [address] | | | | + + + + + + | % | 18.94Comment: Testing | % | EXTERNAL | | | Lymphocytes | performed at [facility], [address] | | LAB | | | | [address], | | | | | | [place] [address] | | | | + + + + + + | % Monocytes | 10.32Comment: Testing | % | EXTERNAL | | | | performed at [facility], [address] | | LAB | | | | [address], | | | | | | [place] [address] | | | | + + + + + + | % | 1.25Comment: Testing | % | EXTERNAL | | | Eosinophils | performed at [facility], [address] | | LAB | | | | [address], | | | | | | [place] [address] | | | | + + + + + + | % Basophils | 0.57Comment: Testing | % | EXTERNAL | | | | performed at [facility], [address] | | LAB | | | | [address], | | | | | | [place] [address] | | | | + + + + + + | Absolute | 8.86 (H)Comment: Testing | 1.90 - 7.40 | EXTERNAL | | | Segmented | performed at [facility], [address] | K/uL | LAB | | | Neutrophils | [address], | | | | | | [place] [address] | | | | + + + + + + | Absolute | 2.44Comment: Testing | 1.00 - 3.90 | EXTERNAL | | | Lymphocytes | performed at [facility], [address] | K/uL | LAB | | | | [address], | | | | | | [place] [address] | | | | + + + + + + | Absolute | 1.33 (H)Comment: Testing | 0.00 - 0.80 | EXTERNAL | | | Monocytes | performed at [facility], [address] | K/uL | LAB | | | | [address], | | | | | | [place] [address] | | | | + + + + + + | Absolute | 0.16Comment: Testing | 0.00 - 0.50 | EXTERNAL | | | Eosinophils | performed at [facility], [address] | [address] | LAB | | | | [address], | | | | | | [place] [address] | | | | + + + + + + | Absolute | 0.07Comment: Testing | 0.00 - 0.10 | EXTERNAL | | | Basophils | performed at [facility], [address] | [address] | LAB | | | | [address], | | | | | | [place] [address] | | | | + + + [...] | | | Fingerstick | performed at [facility];[address] | | LAB | | | | [address];[place], [place] | | | | | | [address] | | | | + + + [...] | | | | | performed at [facility], [address] | | | | | | [address], | | | | | | [place] [address] | | | | + + + [...] W | | | | | | [facility], | | | | | | [place] [address] | | | | + + + [...] | | | | | [place] [address] | | | | + + + + + + | K | 4.2Comment: SPECIMEN | 3.5 - 4.9 | EXTERNAL | | | | SLIGHTLY | mmol/L | LAB | | | | HEMOLYZEDTesting | | | | | | performed at [facility], [address] | | | | | | [address], | | | | | | [place] [address] | | | | + + + + + + | Cl | 104Comment: Testing | 99 - 109 mmol/L | EXTERNAL | | | | performed at [facility], [address] | | LAB | | | | [address], | | | | | | [place] [address] | | | | + + + + + + | CO2 | 25Comment: Testing | 23 - 32 mmol/L | EXTERNAL | | | | performed at [facility], [address] | | LAB | | | | [address], | | | | | | [place] [address] | | | | + + + + + + | Anion Gap | 14Comment: Testing | 5 - 20 mmol/L | EXTERNAL | | | | performed at [facility], [address] | | LAB | | | | [address], | | | | | | [place] [address] | | | | + + + [...] | | | | | [place] [address] | | | | + + + + + + | BUN | 9Comment: Testing | 8 - 25 mg/dL | EXTERNAL | | | | performed at [facility], [address] | | LAB | | | | [address], | | | | | | [place] [address] | | | | + + + + + + | Creatinine | 0.7Comment: SPECIMEN | 0.70 - 1.30 | EXTERNAL | | | | SLIGHTLY | mg/dL | LAB | | | | HEMOLYZEDTesting | | | | | | performed at [facility], [address] | | | | [address], | | | | | | [place] [address] | | | | + + + + + + | BUN/Creatin | 13Comment: Testing | | EXTERNAL | | | ine Ratio | performed at [facility], [address] | | LAB | | | | [address], | | | | | | [place] [address] | | | | + + + + + + | Calcium | 8.5Comment: Testing | 8.5 - 10.5 | EXTERNAL | | | | performed at [facility], [address] | mg/dL | LAB | | | | [address], | | | | | | [place] [address] | | | | + + + + + + | Protein, | 5.8 (L)Comment: Testing | 6.3 - 8.2 g/dL | EXTERNAL | | | Total | performed at [facility], [address] | | LAB | | | | [address], | | | | | | [place] [address] | | | | + + + + + + | Albumin | 2.8 (L)Comment: Testing | 3.3 - 4.8 g/dL | EXTERNAL | | | | performed at [facility], [address] | | LAB | | | | [address], | | | | | | [place] [address] | | | | + + + + + + | Globulin | 3.0Comment: Testing | 1.3 - 4.9 g/dL | EXTERNAL | | | | performed at [facility], [address] | | LAB | | | | [address], | | | | | | [place] [address] | | | | + + + + + + | A/G Ratio | 0.9 (L)Comment: Testing | 1.0 - 2.4 | EXTERNAL | | | | performed at [facility], [address] | | LAB | | | | [address], | | | | | | [place] [address] | | | | + + + + + + | Bilirubin | 1.7 (H)Comment: SPECIMEN | 0.1 - 1.5 mg/dL | EXTERNAL | | | Total | SLIGHTLY | | LAB | | | | HEMOLYZEDTesting | | | | | | performed at [facility], [address] | | | | | | [address], | | | | | | [place] [address] | | | | + + + + + + | ALP, | 77Comment: Testing | 35 - 115 U/L | EXTERNAL | | | External | performed at [facility], [address] | | LAB | | | | [address], | | | | | | [place] [address] | | | | + + + + + + | AST | 18Comment: SPECIMEN | 10 - 45 U/L | EXTERNAL | | | | SLIGHTLY | | LAB | | | | HEMOLYZEDTesting | | | | | | performed at [facility], [address] | | | | | | [address], | | | | | | [place] [address] | | | | + + + + + + | ALT | 15Comment: SPECIMEN | 10 - 65 U/L | EXTERNAL | | | | SLIGHTLY | | LAB | | | | HEMOLYZEDTesting | | | | | | performed at [facility], [address] | | | | | | [address], | | | | | | [place] [address] | | | | + + + [...] | | | | | [place] [address] | | | | + + + [...] | | | Fingerstick | performed at [facility];[address] | | LAB | | | | [address];[place], [place] | | | | | | [address] | | | | + + + [...] | | | Fingerstick | performed at [facility];[address] | | LAB | | | | [address];[place] | | | | | | [address] | | | | + + + [...] | | | | | [place] [address] | | | | + + + [...] | | | Fingerstick | performed at [facility];[address] | | LAB | | | | [address];[place] | | | | | | [address] | | | | + + + [...] Performed At | + + + | [facility] MRI BRAIN WO AND MRA HEAD 05/15/2016 10:47 AM | | | HISTORY: Stroke. Status post TPA administration. TECHNIQUE: | | | Multiplanar MR imaging was performed through the brain without | | | gadolinium. 3-D cvnh-pf-vrijwy MR angiography was also performed to | [...] Johnson, Rad Conversion - 11/02/2018 6:55 AM [facility] BRAIN WO AND MRA | | HEAD05/15/2016 10:47 AM HISTORY:Stroke. Status post TPA administration. | | TECHNIQUE:Multiplanar MR imaging was performed through the brain without gadolinium. 3-D | | bdbv-uz-uxutij MR angiography was also performed to the [...] | | | Fingerstick | performed at [facility];[address] | | LAB | | | | [place] [address];[place] | | | | | | [address] | | | | + + + [...] | | | Fingerstick | performed at [facility];[address] | | LAB | | | | [place] [address];[place] | | | | | | [address] | | | | + + + [...] | | | Fingerstick | performed at [facility];[address] | | LAB | | | | [address];[place], [place] | | | | | | [address] | | | | + + + [...] | | | Fingerstick | performed at [facility];[address] | | LAB | | | | [address];[place] | | | | | | [address] | | | | + + + [...] | | | | [facility], [address] [facility] | | | | | | [place] | | | | | | [address] | | | | + + + + + + | Red Blood | 5.01Comment: Testing | 4.20 - 5.70 | EXTERNAL | | | Cells | performed at [facility], [address] | M/uL | LAB | | | Counted | [address], | | | | | | [place] [address] | | | | + + + + + + | Hemoglobin | 14.0Comment: Testing | 13.2 - 17.0 | EXTERNAL | | | | performed at [facility], [address] | g/dL | LAB | | | | [address], | | | | | | [place] [address] | | | | + + + + + + | Hematocrit, | 40.8Comment: Testing | 39.0 - 50.0 % | EXTERNAL | | | POC | performed at [facility], [address] | | LAB | | | | [address], | | | | | | [place] [address] | | | | + + + + + + | MCV | 81.5Comment: Testing | 80.0 - 100.0 fl | EXTERNAL | | | | performed at [facility], [address] | | LAB | | | | [address], | | | | | | [place] [address] | | | | + + + + + + | MCH | 27.9Comment: Testing | 27.0 - 34.0 pg | EXTERNAL | | | | performed at [facility], [address] | | LAB | | | | [address], | | | | | | [place] [address] | | | | + + + + + + | MCHC | 34.2Comment: Testing | 32.0 - 35.5 | EXTERNAL | | | | performed at [facility], [address] | g/dL | LAB | | | | [address], | | | | | | [place] [address] | | | | + + + + + + | RDW-CV | 42.0Comment: Testing | 37 - 53 fl | EXTERNAL | | | | performed at [facility], [address] | | LAB | | | | [address], | | | | | | [place] [address] | | | | + + + + + + | Platelet | 257Comment: Testing | 150 - 400 K/uL | EXTERNAL | | | Count | performed at [facility], [address] | | LAB | | | Plasma | [address], | | | | | | [place] [address] | | | | + + + + + + | MPV | 8.4Comment: Testing | fl | EXTERNAL | | | | performed at [facility], [address] | | LAB | | | | [address], | | | | | | [place] [address] | | | | + + + + + + | Differentia | AUTOMATEDComment: | | EXTERNAL | | | l Type | Testing performed at | | LAB | | | | [facility], [address] | | | | | | [place] | | | | | | [address] | | | | + + + + + + | % Segmented | 72.88Comment: Testing | % | EXTERNAL | | | | performed at [facility], [address] | | LAB | | | Neutrophils | [address], | | | | | | [place], [place] [address] | | | | + + + + + + | % | 17.64Comment: Testing | % | EXTERNAL | | | Lymphocytes | performed at [facility], [address] | | LAB | | | | [address], | | | | | | [place], [place] [address] | | | | + + + + + + | % Monocytes | 8.16Comment: Testing | % | EXTERNAL | | | | performed at [facility], [address] | | LAB | | | | [address], | | | | | | [place] [address] | | | | + + + + + + | % | 1.06Comment: Testing | % | EXTERNAL | | | Eosinophils | performed at [facility], [address] | | LAB | | | | [address], | | | | | | [place] [address] | | | | + + + + + + | % Basophils | 0.26Comment: Testing | % | EXTERNAL | | | | performed at [facility], [address] | | LAB | | | | [address], | | | | | | [place] [address] | | | | + + + + + + | Absolute | 10.84 (H)Comment: | 1.90 - 7.40 | EXTERNAL | | | Segmented | Testing performed at | K/uL | LAB | | | Neutrophils | [facility], [address] | | | | | | [place] | | | | | | [address] | | | | + + + + + + | Absolute | 2.62Comment: Testing | 1.00 - 3.90 | EXTERNAL | | | Lymphocytes | performed at [facility], [address] | K/uL | LAB | | | | [address], | | | | | | [place] [address] | | | | + + + + + + | Absolute | 1.21 (H)Comment: Testing | 0.00 - 0.80 | EXTERNAL | | | Monocytes | performed at [facility], [address] | [address] | LAB | | | | [address], | | | | | | [place] [address] | | | | + + + + + + | Absolute | 0.16Comment: Testing | 0.00 - 0.50 | EXTERNAL | | | Eosinophils | performed at [facility], [address] | K/uL | LAB | | | | [address], | | | | | | [place] [address] | | | | + + + + + + | Absolute | 0.04Comment: Testing | 0.00 - 0.10 | EXTERNAL | | | Basophils | performed at [facility], [address] | K/uL | LAB | | | | [address], | | | | | | [place] [address] | | | | + + + [...] EXTERNAL | | | | performed at [facility], [address] | | LAB | | | | [address], | | | | | | [place] [address] | | | | + + + [...] EXTERNAL | | | | performed at [facility], [address] | | LAB | | | | [address], | | | | | | [place] [address] | | | | + + + [...] | EXTERNAL | | | A1c | [facility] Diabetes | | LAB | | | [...] | | | | | performed at [facility], [address] | | | | | | [address], | | | | | | [place] [address] | | | | + + + [...] | | | | | performed at [facility], [address] | | | | | | [address], | | | | | | [place] [address] | | | | + + + [...] EXTERNAL | | | | performed at [facility], [address] | | LAB | | | | [address], | | | | | | [place] [address] | | | | + + + + + + | Triglycerid | 152 (H)Comment: Testing | mg/dL | EXTERNAL | | | es | performed at [facility], [address] | | LAB | | | | [address], | | | | | | [place] [address] | | | | + + + + + + | HDL | 31 (L)Comment: Testing | mg/dL | EXTERNAL | | | | performed at [facility], [address] | | LAB | | | | [address], | | | | | | [place] [address] | | | | + + + + + + | LDL, | 47Comment: Testing | mg/dL | EXTERNAL | | | Calculated | performed at [facility], [address] | | LAB | | | | [address], | | | | | | [place] [address] | | | | + + + [...] | | | | | [place] [address] | | | | + + + + + + | K | 3.3 (L)Comment: Testing | 3.5 - 4.9 | EXTERNAL | | | | performed at [facility], [address] | mmol/L | LAB | | | | [address], | | | | | | [place] [address] | | | | + + + + + + | Cl | 104Comment: Testing | 99 - 109 mmol/L | EXTERNAL | | | | performed at [facility], [address] | | LAB | | | | [address], | | | | | | [place] [address] | | | | + + + + + + | CO2 | 25Comment: Testing | 23 - 32 mmol/L | EXTERNAL | | | | performed at [facility], [address] | | LAB | | | | [address], | | | | | | [place] [address] | | | | + + + + + + | Anion Gap | 12Comment: Testing | 5 - 20 mmol/L | EXTERNAL | | | | performed at [facility], [address] | | LAB | | | | [address], | | | | | | [place] [address] | | | | + + + + + + | Glucose, | 125 (H)Comment: Testing | 65 - 99 mg/dL | EXTERNAL | | | Fasting | performed at [facility], [address] | | LAB | | | | [address], | | | | | | [place] [address] | | | | + + + + + + | BUN | 11Comment: Testing | 8 - 25 mg/dL | EXTERNAL | | | | performed at [facility], [address] | | LAB | | | | [address], | | | | | | [place] [address] | | | | + + + + + + | Creatinine | 0.7Comment: Testing | 0.70 - 1.30 | EXTERNAL | | | | performed at [facility], [address] | mg/dL | LAB | | | | [address], | | | | | | [place] [address] | | | | + + + + + + | BUN/Creatin | 16Comment: Testing | | EXTERNAL | | | ine Ratio | performed at [facility], [address] | | LAB | | | | [address], | | | | | | [place] [address] | | | | + + + + + + | Calcium | 8.3 (L)Comment: Testing | 8.5 - 10.5 | EXTERNAL | | | | performed at [facility], [address] | mg/dL | LAB | | | | [address], | | | | | | [place] [address] | | | | + + + [...] [address], | | | | | | [place] [address] | | | | + + + [...] | | | Fingerstick | performed at [facility];[address] | | LAB | | | | [address];[place], [place] | | | | | | [address] | | | | + + + [...] | | | Fingerstick | performed at [facility];[address] | | LAB | | | | [address];[place], [place] | | | | | | [address] | | | | + + + [...] | | | Fingerstick | performed at [facility];[address] | | LAB | | | | [address];[place] | | | | | | [address] | | | | + + + [...] | | | Fingerstick | performed at [facility];[address] | | LAB | | | | [address];[place], [place] | | | | | | [address] | | | | + + + [...] | | | Fingerstick | performed at [facility];[address] | | LAB | | | | [address];[place] | | | | | | [address] | | | | + + + [...] | | | Fingerstick | performed at [facility];[address] | | LAB | | | | [address];[place] | | | | | | [address] | | | | + + + [...] | | | Fingerstick | performed at [facility];[address] | | LAB | | | | [address];[place] | | | | | | [address] | | | | + + + [...] | | | Fingerstick | performed at [facility];[address] | | LAB | | | | [address];[place] | | | | | | [address] | | | | + + + [...] | | | Fingerstick | performed at [facility];[address] | | LAB | | | | [address];[place], [place] | | | | | | [address] | | | | + + + [...] | | | Fingerstick | performed at [facility];[address] | | LAB | | | | [address];[place], [place] | | | | | | [address] | | | | + + + [...] | | | Fingerstick | performed at [facility];[address] | | LAB | | | | [address];[place] | | | | | | [address] | | | | + + + [...] | | | Fingerstick | performed at [facility];[address] | | LAB | | | | [address];[place] | | | | | | [address] | | | | + + + [...] | | | Fingerstick | performed at [facility];[address] | | LAB | | | | [address];[place] | | | | | | [address] | | | | + + + [...] | | | Fingerstick | performed at [facility];[address] | | LAB | | | | [address];[place] | | | | | | [address] | | | | + + + [...] | | | Fingerstick | performed at [facility];[address] | | LAB | | | | [address];[place] | | | | | | [address] | | | | + + + [...] | | | Fingerstick | performed at [facility];[address] | | LAB | | | | [address];[place], [place] | | | | | | [address] | | | | + + + [...] | | Jefe: 0.48 m/s TV Dec [place]: 3.62 m/s2 TV Dec Time: 136.62 | | | ms TV E Jefe: 0.49 m/s TV E/A Ratio: 1.02 Rehabilitator: TRINY | | | Authenticated by: [place]ar [place] Report Date/Time: 05-14-2016 | | | 17:14:37 [...] | Index (A-L): 25.78 ml/m2LAAs A2C: 20.06 [id number] A-L A2C: 56.80 mlLAESV MOD A2C: | | 53.98 mlLALs A2C: 6.01 cmLAAs A4C: 18.67 [id number] A-L A4C: 45.70 mlLAESV MOD A4C: | | 43.69 mlLALs A4C: 6.47 cmHR: 94.31 BPMAV maxP.45 mmHgAV meanP.54 | | mmHgAV Vmax: 1.61 m/Abilio Vmean: 1.22 m/Abilio VTI: 27.30 cmAVA Vmax: 2.68 cm2AVA | | (VTI): 2.69 mf5YVBI Vmax: 0.00 cm2/m2AVAI (VTI): 0.00 cm2/m2LVCI Dopp: 3.08 | | l/[id number] Dopp: 6.31 l/minHR: 85.80 BPMLVOT maxP.48 mmHgLVOT meanP.11 | | mmHgLVSI Dopp: 35.92 ml/m2LVSV Dopp: 73.65 mlLVOT Vmax: 1.36 m/sLVOT Vmean: 0.96 | | m/sLVOT VTI: 23.22 cmMCO: 392.13 msMV A Jefe: 1.50 m/sMV DecT: 213.25 msMV E | | Jefe: 0.88 m/sMV E/A Ratio: 0.59MV PHT: 74.39 msMVA By PHT: 2.95 [id number] e': | | 0.05 m/sSeptal E/e': 14.80RAP: 8 mmHgTV A Jefe: 0.48 m/sTV Dec [place]: 3.62 m/s2TV | | Dec Time: 136.62 msTV E Jefe: 0.49 m/sTV E/A Ratio: 1.02 Rehabilitator: | | GDAuthenticated by: Aleksandar WestbrookSt. Anthony's [...] A Jefe: 0.48 m/s | |TV Dec [place]: 3.62 m/s2 | |TV Dec Time: 136.62 ms | |TV E Jefe: 0.49 m/s | |TV E/A Ratio: 1.02 | | | |Rehabilitator: TRINY | |Authenticated by: Aleksandar Dotson | [...] EXTERNAL LAB | | Testing performed at [address];[place] [address] MRSA PCR | | | NEGATIVE Testing performed at | | | [address];[place] [address] | | + + + + +---------+ [...] | | | Fingerstick | performed at [facility];[address] | | LAB | | | [address];[place], [place] | | | | | | [address] | | | | + + + [...] + + | Historically converted procedure from [facility] environment | EXTERNAL LAB | + [...]
--- OUTSIDE RECORDS SUMMARY | ~2019-08-08 | XMS | Encounter Summary ---
Demographics + + + | Address | [address] | | | [place] [address] | + + + | Home Phone [...] Organization | [facility] | | | and [place] | + + + | Address | Unknown | + + + | Phone | Unavailable | + + + Support + + + + + | Name | Relationship | Address | Phone | + + + + + | Jessica Shepard | ECON | [address] | | | | | [place] | | | | | [address] | | + + + + + | Bel Solis | ECON | Unknown | | + + + + + Care Team Providers + +------+ + | Care Bus Dispatcher [place] Name | Role | Phone | + +------+ + | Dian Lr NP | PCP | | + +------+ + Encounter Details +--------+ + + + + | Date | Type | Department | Care Team | Description | +--------+ + + + + | 11/26/ | Hospital | [facility] | Toby Ortiz | 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 SBAR report to ELLIOT Ramirez @ [facility] who continues care. Dressing will Need to [...]
--- OUTSIDE RECORDS SUMMARY | ~2019-08-08 | XMS | Encounter Summary ---
Demographics + + + | Address | [address] | | | [place] [address] | + + + | Home Phone [...] + | Jessica Shepard | ECON | [address] | | | | | [place] | | | | | [address] | | + + + + + | Bel Solis | ECON | Unknown | | + + + + + Care Team Providers + +------+ + | Care Rail Car Mechanic Name | Role | Phone | [...] + + | 05/23/ | Telephone | [facility] | Nimo Westbrook, | Care Coordination | | 2020 | | INFECTIOUS DISEASE | Product Distribution Specialist | (EOT??); Other (pic | | | | [address] | | d/c) | | | | [place] | | | | | | [address] | | | | | | [phone] | | | +--------+ + + + [...]
--- OUTSIDE RECORDS SUMMARY | ~2019-08-08 | XMS | Encounter Summary ---
Demographics + + + | Address | [address] | | | [place] [address] | + + + | Home Phone [...] + | Jessica Shepard | ECON | [address] | | | | | [place] | | | | | [address] | | + + + + + | Bel Solis | ECON | Unknown | | + + + + + Care Team Providers + +------+ + | Care Marketing Summer Intern Name | Role | Phone | + [...] + + | 11/21/ | Surgery | [facility] | Simone Aceves, | Amputation Right 5th | | 2018 | | MED CTR OR INTRA OP | DPM [address] | Metatarsal | | | | [address] | [place], [place] | | | | | [place], [place] | [address] | | | | | [address] | [phone] | | | | | [phone] | | | +--------+---------+ + + + [...] other anesthesia was used during the case. [facility] lower extremity was then scrubbed, prepped and [...] -PT/OT ordered Code Status: Full Code Disposition: [facility] Discharge Condition: Stable, very deconditioned and weak at baseline Pleasant, no distress RRR, no m/r/g CTA bilaterally Soft, obese, NT Ext WWP, right foot ulcer with deep wound, slight purulent drainage Contact information for after-discharge care Placement Destination [facility] . Specialty: Assisted Facility Contact information: [place] [phone] Discharge [...] signed by: Justin Reyna MD, 11/25/2017 13:01 [facility] documented in this encounter Medications at [...] pantoprazole Mechanical fall -PT/OT ordered Disposition : [facility] as soon as 11/25 Prophylaxis : heparin [...] as outlined above. Justin Reyna 11/24/2017 18:16 [facility] Sang Duff MD - 11/24/2017 1:59 [...] as outlined above. Justin Reyna 11/23/2017 14:24 [facility] oSimone mcmullen DPM - 11/23/2017 1:58 PM PDT Foot & Ankle Surgery Progress Note Simone Shepard Age/Gender 72 y.o. male Location [facility] Attending Mil Sandoval MD Hosp [...] Value Units Date/Time Culture, Wound, Smear, w/Anaerobe [[id number]] Collected: 11/21/171207 Order Status: Sent Lab Status: In process Updated: 11/21/171249 Specimen: Tissue from Toe, Fifth/Small, Right Narrative: The following orders were created for panel order Culture, Wound, Smear, w/Anaerobe. Procedure Abnormality Status --------- ------ Culture, Wound, Smear[[id number]] In process Culture, Anaerobic[[id number]] In process Please view results for these tests on the individual orders. Culture, Wound, Smear [[id number]] Collected: 11/21/171207 Order Status: Sent Lab Status: In process Updated: 11/21/17 125 Specimen: Tissue from Toe, Fifth/Small, Right Culture, Anaerobic [[id number]] Collected: 11/21/171207 Order Status: Sent Lab Status: [...] Simone Aceves DPM 13:58; 11/23/2017 Irasema Dominguez, Director [facility] - 11/23/2017 9:43 AM PDT PHARMACY SERVICES: [...] strength, and directions X Pharmacy list names: [facility] X [employer] insurance reported information X Care [...] Prior to Admission Sig: Patient taking differently DIRECTOR REPORT as: Hydrocodone-acetaminophen 10-325 mg Take one tablet by mouth four times daily as needed fo r pain Patient taking 1 tablet three times daily as a scheduled dose Best possible DIRECTOR REPORT medication list after pharmacy review: PT REPORTED [...] performed and electronically signed by Blanquita Bertrand, At Risk Specialist 11/22/2017 8:38 Electronically signed by: Irasema Moyer, Director [facility] 11/23/2017 9:43 each, Justin Ferrell MD - 11/22/2017 5:22 PM PDT [place] [...] as outlined above. Justin Reyna 11/22/2017 17:40 [facility] Danielle Claire, Cut Out Worker - 11/22/2017 2:13 PM PDTFormatting of this [...] mellitus (HCC); Stroke (cerebrum) ([facility]); an d TBI (traumatic brain injury) ([facility]). No risk factors for MDR organisms. HPI: [...] Value Units Date/Time Culture, Wound, Smear, w/Anaerobe [[id number]] Collected: 11/21/17 1208 Order Status: Sent Lab Status: In process Updated: 11/21/17 1250 Specimen: Tissue from Toe, Fifth/Small, Right Narrative: The following orders were created for panel order Culture, Wound, Smear, w/Anaerobe. Procedure Abnormality Status --------- ------ Culture, Wound, Smear[[id number]] Preliminary result Culture, Anaerobic[[id number]] In process Please view results for these tests on the individual orders. Culture, Wound, Smear [[id number]] Collected: 11/21/17 1208 Order Status: Completed Lab Status: Preliminary result Updated: 11/22/17 1021 Specimen: Tissue from Toe, Fifth/Small, Right Culture 2+ Lactose Fermenting Gram Negative Bacilli Comment: Identification and susceptibility to follow. Gram Stain Result 2+ White Blood Cells 1+ Epithelial cells 2+ Gram negative rods Culture, Anaerobic [[id number]] Collected: 11/21/17 1208 Order Status: Sent Lab Status: In process Updated: 11/21/17 1250 Specimen: Tissue from Toe, Fifth/Small, Right Respiratory Virus Panel, NAAT [[id number]] Collected: 11/20/17 1257 Order Status: Completed Lab [...] pneumoniae DNA Not Detected Narrative: Performed at: [address] [place] [id number] Occasional Babysitter: Jurgen Costa MD, Phone: [phone] Culture, Wound, Smear [[id number]] (Susceptibility) Collected: 11/20/17 0825 Order Status: Completed [...] Sulfamethoxazole <=20 ug/mL Sensitive Culture, Wound, Smear [[id number]] (Susceptibility) Collected: 11/19/17 2031 Order Status: Completed [...] no longer reported. Culture, Respiratory, Lower, Smear [[id number]] Order Status: Sent Lab Status: No result Specimen: Body Fluid from Sputum, Expectorated Culture, Wound, Smear [[id number]] Order Status: Canceled Lab Status: No result Specimen: Tissue from Leg, Left Culture, Blood [[id number]] (Normal) Collected: 11/19/17 1537 Order Status: Completed Lab Status: Preliminary result Updated: 11/20/17 0351 Specimen: Blood from Peripheral Blood Culture No growth: Monitored continually by instrument for 5 days Culture, Blood [[id number]] (Normal) Collected: 11/19/17 1506 Order Status: Completed Lab Status: Preliminary result Updated: 11/20/17 0321 Specimen: Blood from Peripheral Blood Culture No growth: Monitored continually by instrument for 5 days Culture, Urine [[id number]] Collected: 11/19/17 1416 Order Status: Completed Lab [...] Monitoring Protocol Electronically signed by: Danielle Guillermo, Cut Out Worker 11/22/2017 14:13 Associated attestation - Luther Hampton, [...] DPSunshine Shepard Age/Gender 72 y.o. male Location [facility] Attending Mil Sandoval MD Hosp [...] Value Units Date/Time Culture, Wound, Smear, w/Anaerobe [[id number]] Collected: 11/21/171207 Order Status: Sent Lab Status: In process Updated: 11/21/17 1250 Specimen: Tissue from Toe, Fifth/Small, Right Narrative: The following orders were created for panel order Culture, Wound, Smear, w/Anaerobe. Procedure Abnormality Status --------- ------ Culture, Wound, Smear[[id number]] In process Culture, Anaerobic[[id number]] In process Please view results for these tests on the individual orders. Culture, Wound, Smear [[id number]] Collected: 11/21/171207 Order Status: Sent Lab Status: In process Updated: 11/21/17 1250 Specimen: Tissue from Toe, Fifth/Small, Right Culture, Anaerobic [[id number]] Collected: 11/21/171207 Order Status: Sent Lab Status: [...] mellitus (HCC); Stroke (cerebrum) ([facility]); an d TBI (traumatic brain injury) ([facility]). . No risk factors for MDR organisms. [...] Value Units Date/Time Culture, Wound, Smear, w/Anaerobe [[id number]] Collected: 11/21/171207 Order Status: Sent Lab Status: In process Updated: 11/21/17 125 Specimen: Tissue from Toe, Fifth/Small, Right Narrative: The following orders were created for panel order Culture, Wound, Smear, w/Anaerobe. Procedure Abnormality Status --------- ------ Culture, Wound, Smear[[id number]] In process Culture, Anaerobic[[id number]] In process Please view results for these tests on the individual orders. Culture, Wound, Smear [[id number]] Collected: 11/21/17 120 Order Status: Sent Lab Status: In process Updated: 11/21/17 125 Specimen: Tissue from Toe, Fifth/Small, Right Culture, Anaerobic [[id number]] Collected: 11/21/17 120 Order Status: Sent Lab Status: In process Updated: 11/21/17 1250 Specimen: Tissue from Toe, Fifth/Small, Right Respiratory Virus Panel, NAAT [[id number]] Collected: 11/20/17 1257 Order Status: Sent Lab Status: In process Updated: 11/20/17 1302 Specimen: Tissue from Nasopharynx Culture, Wound, Smear [[id number]] Collected: 11/20/17 0825 Order Status: Completed Lab Status: Preliminary result Updated: 11/21/17 0739 Specimen: Tissue from Foot, Right Culture 1+ Gram Negative Jayesh, NOT Pseudomonas Comment: Identification and susceptibility to follow. 1+ Gram Positive Cocci Comment: Isolating for additional information. Gram Stain Result 1+ White Blood Cells No organisms seen Culture, Wound, Smear [[id number]] (Susceptibility) Collected: 11/19/17 203 Order Status: Completed [...] <=20 ug/mL Sensitive Culture, Respiratory, Lower, Smear [[id number]] Order Status: Sent Lab Status: No result Specimen: Body Fluid from Sputum, Expectorated Culture, Wound, Smear [[id number]] Order Status: Canceled Lab Status: No result Specimen: Tissue from Leg, Left Culture, Blood [[id number]] (Normal) Collected: 11/19/17 1537 Order Status: Completed Lab Status: Preliminary result Updated: 11/20/17 0351 Specimen: Blood from Peripheral Blood Culture No growth: Monitored continually by instrument for 5 days Culture, Blood [[id number]] (Normal) Collected: 11/19/17 1506 Order Status: Completed Lab Status: Preliminary result Updated: 11/20/17 0321 Specimen: Blood from Peripheral Blood Culture No growth: Monitored continually by instrument for 5 days Culture, Urine [[id number]] Collected: 11/19/17 1416 Order Status: Completed Lab [...] Hoff MD - 11/21/2017 11:05 AM PDT [facility] KELLIE GUTIERREZ HOSPITALIST PROGRESS NOTE Patient: Reagan Shepard : 1945: Age: 72 y.o. MedRec: [id number] Admission date: 11/19/2017 Hospital day # : [...] E' Septal Velocity 4.79 cm/s MV Deceleration [place] 336.24 cm/s2 MV Deceleration Time 332.96 msec [...] Value Units Date/Time Respiratory Virus Panel, NAAT [[id number]] Collected: 11/20/17 1257 Order Status: Sent Lab Status: In process Updated: 11/20/17 1302 Specimen: Tissue from Nasopharynx Culture, Wound, Smear [[id number]] Collected: 11/20/17 0825 Order Status: Completed Lab Status: Preliminary result Updated: 11/21/17 0739 Specimen: Tissue from Foot, Right Culture 1+ Gram Negative Jayesh, NOT Pseudomonas Comment: Identification and susceptibility to follow. 1+ Gram Positive Cocci Comment: Isolating for additional information. Gram Stain Result 1+ White Blood Cells No organisms seen Culture, Wound, Smear [[id number]] (Susceptibility) Collected: 11/19/17 203 Order Status: Completed [...] + Sulfamethoxazole <=20 ug/mL Sensitive Culture, Blood [[id number]] (Normal) Collected: 11/19/17 1537 Order Status: Completed Lab Status: Preliminary result Updated: 11/20/17 0351 Specimen: Blood from Peripheral Blood Culture No growth: Monitored continually by instrument for 5 days Culture, Blood [[id number]] (Normal) Collected: 11/19/17 1506 Order Status: Completed Lab Status: Preliminary result Updated: 11/20/17 0321 Specimen: Blood from Peripheral Blood Culture No growth: Monitored continually by instrument for 5 days Culture, Urine [[id number]] Collected: 11/19/17 1416 Order Status: Completed Lab [...] Other Pharmacy Consult Nasim Jimenez 11/21/2017 11:05 [facility] Nasim Hoff MD - 11/20/2017 10:04 AM PDT [facility] KELLIE GUTIERREZ HOSPITALIST PROGRESS NOTE Patient: Reagan Shepard : 1945: Age: 72 y.o. MedRec: [id number] Admission date: 11/19/2017 Hospital day # : [...] PH UA 5.0 5.0 - 8.0 Specific [place] 1.017 1.001 - 1.030 PROTEIN UA 30 [...] Component Value Units Date/Time Culture, Wound, Smear [[id number]] Collected: 11/20/17 0825 Order Status: Sent Lab Status: In process Updated: 11/20/17 0829 Specimen: Tissue from Foot, Right Culture, Wound, Smear [[id number]] Collected: 11/19/172030 Order Status: Completed Lab Status: Preliminary result Updated: 11/20/17 09 Specimen: Tissue from Leg, Lower, Right Culture 2+ Gram Negative Jayesh, NOT Pseudomonas Comment: Identification and susceptibility to follow. 1+ Gram Positive Cocci Comment: Isolating for additional information. Gram Stain Result No white blood cells (PMNs) seen 1+ Gram negative rods Culture, Blood [[id number]] (Normal) Collected: 11/19/17 1537 Order Status: Completed Lab Status: Preliminary result Updated: 11/20/17 0351 Specimen: Blood from Peripheral Blood Culture No growth: Monitored continually by instrument for 5 days Culture, Blood [[id number]] (Normal) Collected: 11/19/17 1506 Order Status: Completed Lab Status: Preliminary result Updated: 11/20/17 0321 Specimen: Blood from Peripheral Blood Culture No growth: Monitored continually by instrument for 5 days Culture, Urine [[id number]] (Normal) Collected: 11/19/17 1416 Order Status: Completed [...] Other Pharmacy Consult Nasim Jimenez 11/20/2017 10:05 [facility] ico, Shirley Fuller mD - 11/20/2017 9:10 [...] damage to right cerebral hemisphere; Diabetes mellitus ([facility]); Stroke (cerebrum) ([facility]); an d TBI (traumatic brain injury) ([facility]). . No risk factors for MDR organisms. HPI: history of DM, presented with fatigue and slipped wearing socks/falling backwards at h ome w/ left hip/shoulder pain thereafter. No LOC. No dysuria. Fever yesterday, cough with lo ose nonproductive x few days, fatigue and malaise last few days. Chronic right lower alanis wo und care x 1 year per [place]. Antimicrobials - Current Antibiotic Dates of Therapy vancomycin 11/19- zosyn 11/19- Antimicrobials - Discontinued Antibiotic Dates of Therapy Historical Vancomycin dosing (previous & current encounter): none Micro/Cultures/Diagnostics: Microbiology Results (Last 14 Days by Collected Date with Culture/Sensitivity) Procedure Component Value Units Date/Time Culture, Wound, Smear [[id number]] Collected: 11/20/17824 Order Status: Sent Lab Status: In process Updated: 11/20/17828 Specimen: Tissue from Foot, Right Culture, Wound, Smear [[id number]] Collected: 11/19/172030 Order Status: Completed Lab Status: Preliminary result Updated: 11/20/17899 Specimen: Tissue from Leg, Lower, Right Culture 2+ Gram Negative Jayesh, NOT Pseudomonas Comment: Identification and susceptibility to follow. 1+ Gram Positive Cocci Comment: Isolating for additional information. Gram Stain Result No white blood cells (PMNs) seen 1+ Gram negative rods Culture, Respiratory, Lower, Smear [[id number]] Order Status: Sent Lab Status: No result Specimen: Body Fluid from Sputum, Expectorated Culture, Wound, Smear [[id number]] Order Status: Canceled Lab Status: No result Specimen: Tissue from Leg, Left Culture, Blood [[id number]] (Normal) Collected: 11/19/17 1537 Order Status: Completed Lab Status: Preliminary result Updated: 11/20/17 0351 Specimen: Blood from Peripheral Blood Culture No growth: Monitored continually by instrument for 5 days Culture, Blood [[id number]] (Normal) Collected: 11/19/17 1506 Order Status: Completed Lab Status: Preliminary result Updated: 11/20/17 0321 Specimen: Blood from Peripheral Blood Culture No growth: Monitored continually by instrument for 5 days Culture, Urine [[id number]] (Normal) Collected: 11/19/17 1416 Order Status: Completed [...] mellitus (HCC); Stroke (cerebrum) ([facility]); an d TBI (traumatic brain injury) ([facility]). . No risk factors for MDR organisms. [...] Value Units Date/Time Culture, Respiratory, Lower, Smear [[id number]] Order Status: Sent Lab Status: No result Specimen: Body Fluid from Sputum, Expectorated Culture, Wound, Smear [[id number]] Order Status: Sent Lab Status: No result Specimen: Tissue from Leg, Left Culture, Blood [[id number]] Collected: 11/19/17 1537 Order Status: Sent Lab Status: In process Updated: 11/19/17 1543 Specimen: Blood from Peripheral Blood Culture, Blood [[id number]] Collected: 11/19/17 1506 Order Status: Sent Lab Status: In process Updated: 11/19/17 1511 Specimen: Blood from Peripheral Blood Culture, Urine [[id number]] Collected: 11/19/17 1416 Order Status: Sent Lab [...] the | | | | PDT | ([facility]) | results section. | + +--------+ + [...] K?MRN: | | | | | | [id number] | | | [id number] | | | his | | | [...] | | | ent/06 | | | b3122c | | | -9b07- | | | [...] | | | St. | | | [place] | | | y H. | | [...] | | | St. | | | [place] | | | y | | | [...] [address] | [place] | [phone] | | [facility] | | [address] | | | - LABORATORY | | [...] + | [facility] | [address] | [place] | [phone] | | [facility] | | [address] | | | - LABORATORY | | [...] + | [facility] | [address] | [place] | [phone] | | [facility] | | [address] | | | - LABORATORY | | [...] | | FILTRATION | mL/min/1.73m2 | [facility] | | | AF[place]AN | RATE,ESTIMATED | | MEDICAL | | | | mL/min/1.37b9Slni than | | CENTER - | | [...] + | Performing | Address | City/State/[facility] | Phone Number | | Organization | | | | + + + + + | [facility] | [address] | [place] | [phone] | | [facility] | | [address] | | | - LABORATORY | | [...] | Basophils | | K/uL | [facility] | | | | | | [...] [address] | [place] | [phone] | | [facility] | | [address] | | | - LABORATORY | | [...] [address] | [place] | [phone] | | [facility] | | [address] | | | - LABORATORY | | [...] [address] | [place] | [phone] | | [facility] | | [address] | | | - LABORATORY | | [...] [address] | [place] | [phone] | | [facility] | | [address] | | | - LABORATORY | | [...] + | [facility] | [address] | [place] | [phone] | | [facility] | | [address] | | | - LABORATORY | | [...] mL/min/1.73m2 | [facility] | | | AF[place]AN | RATE,ESTIMATED | | MEDICAL | | | | mL/min/1.43g4Ssvw than | | CENTER - | | [...] [address] | [place] | [phone] | | [facility] | | [address] | | | - LABORATORY | | [...] [address] | [place] | [phone] | | [facility] | | [address] | | | - LABORATORY | | [...] + | [facility] | [address] | [place] | [phone] | | [facility] | | [address] | | | - LABORATORY | | [...] [address] | [place] | [phone] | | [facility] | | [address] | | | - LABORATORY | | [...] [address] | [place] | [phone] | | [facility] | | [address] | | | - LABORATORY | | [...] + | [facility] | [address] | [place] | [phone] | | [facility] | | [address] | | | - LABORATORY | | [...] [address] | [place] | [phone] | | [facility] | | [address] | | | - LABORATORY | | [...] mL/min/1.73m2 | [facility] | | | AF[place]AN | RATE,ESTIMATED | | MEDICAL | | | | mL/min/1.97j0Crxj than | | CENTER - | | [...] [address] | [place] | [phone] | | [facility] | | [address] | | | - LABORATORY | | [...] + | [facility] | [address] | [place] | [phone] | | [facility] | | [address] | | | - LABORATORY | | [...] [address] | [place] | [phone] | | [facility] | | [address] | | | - LABORATORY | | [...] [address] | [place] | [phone] | | [facility] | | [address] | | | - LABORATORY | | [...] + | [facility] | [address] | [place] | [phone] | | [facility] | | [address] | | | - LABORATORY | | [...] ST. | [address] | [place] | [phone] | | [facility] | | [address] | | | - LABORATORY | | [...] [address] | [place] | [phone] | | [facility] | | [address] | | | - LABORATORY | | [...] [address] | [place] | [phone] | | [facility] | | [address] | | | - LABORATORY | | [...] ST. | [address] | [place] | [phone] | | [facility] | | [address] | | | - LABORATORY | | [...] | 1.04 | 0.60 - 1.30 | [facility] | [...] mL/min/1.73m2 | [facility] | | | AFGHAN | RATE,ESTIMATED | | MEDICAL | | | | mL/min/1.90s8Pwqa than | | CENTER - | | [...] [address] | [place] | [phone] | | [facility] | | [address] | | | - LABORATORY | | [...] [address] | [place] | [phone] | | [facility] | | [address] | | | - LABORATORY | | [...] ST. | [address] | [place] | [phone] | | [facility] | | [address] | | | - LABORATORY | | [...] [address] | [place] | [phone] | | [facility] | | [address] | | | - LABORATORY | | [...] [facility] | | | | | | [facility] | | | | | | [...] [address] | [place] | [phone] | | [facility] | | [address] | | | - LABORATORY | | [...] [address] | [place] | [phone] | | [facility] | | [address] | | | - LABORATORY | | [...] [address] | [place] | [phone] | | [facility] | | [address] | | | - LABORATORY | | [...] + | [facility] | [address] | [place], [place] | [phone] | | [facility] | | [address] | | | - LABORATORY | | [...] cells seen | [facility] | | | [facility] | | | [facility] | | | - LABORATORY | + + + + + + + + | Performing | Address | City/State/Zipcode | Phone Number | | Organization | | | | + + + + + | [facility] | [address] | [place] | [phone] | | [facility] | | [address] | | | - LABORATORY | | [...] + | [facility] | [address] | [place] | [phone] | | [facility] | | [address] | | | - LABORATORY | | [...] [address] | [place] | [phone] | | [facility] | | [address] | | | - LABORATORY | | [...] [address] | [place] | [phone] | | [facility] | | [address] | | | - LABORATORY | | [...] [address] | [place] | [phone] | | [facility] | | [address] | | | - LABORATORY | | [...] + | [facility] | [address] | [place] | [phone] | | [facility] | | [address] | | | - LABORATORY | | [...] | mL/min/1.73m2 | [facility] | | | AFGHAN | RATE,ESTIMATED | | MEDICAL | | | | mL/min/1.62n2Jieo than | | CENTER - | | [...] [address] | [place] | [phone] | | [facility] | | [address] | | | - LABORATORY | | [...] [address] | [place] | [phone] | | [facility] | | [address] | | | - LABORATORY | | [...] [address] | [place] | [phone] | | [facility] | | [address] | | | - LABORATORY | | [...] | | chronic inflammation suggestive of osteomyelitis. JVR:[facility]:C2NR | | | MICROSCOPIC EXAMINATION: Histologic [...] decalcified in decal | | | STAT).. am:AMB:[facility] PERFORMING LABORATORY: The technical | | | component was performed by [employer], [address] [facility], | | | [facility] [address] ([employer] Professor: Khadra Gill MD; CLIA# | | | [id number]). Professional interpretation was performed by [employer] | | | [employer], [facility], [address] [place] [address] ([employer] Professor: Ambrosio | | | [place] Hall). Diagnostician: Ambrosio Hall MD | | | Pathologist Electronically Signed 11/23/2017 | | + + + + +---------+ + + | Performing | Address | City/State/Zipcode | Phone Number | | Organization | | | | + +---------+ + + | [facility] | | | | | [email or web address] | | | | + +---------+ + [...] + | [facility] | [address] | [place] | [phone] | | [facility] | | [address] | | | - LABORATORY | | [...] | | | | | | n [place] | | | | | + +---------+ [...] | | POC | | | [facility] | | [...] + | [facility] | [address] | [place] | [phone] | | [facility] | | [address] | | | - LABORATORY | | [...] + + | Performed at: 01 - [facility] [address], | REFERENCE LAB | | [place], [place] [id number] Occasional Babysitter: Jurgen Costa MD, Phone: | [facility] | | [phone] | | + + + + + + + + | Performing | Address | City/State/Zipcode | Phone Number | | Organization | | | | + + + + + | REFERENCE LAB | [address] | [place], [place] | [phone] | | [facility] | [place]inne Vargas | [address] | | + + + + + [...] + | [facility] | [address] | [place] | [phone] | | [facility] | | [address] | | | - LABORATORY | | [...] [address] | [place] | [phone] | | [facility] | | [address] | | | - LABORATORY | | [...] [address] | [place] | [phone] | | [facility] | | [address] | | | - LABORATORY | | [...] [address] | [place] | [phone] | | [facility] | | [address] | | | - LABORATORY | | [...] [address] | [place] | [phone] | | [facility] | | [address] | | | - LABORATORY | | [...] [address] | [place] | [phone] | | [facility] | | [address] | | | - LABORATORY | | [...] [address] | [place] | [phone] | | [facility] | | [address] | | | - LABORATORY | | [...] [address] | [place] | [phone] | | [facility] | | [address] | | | - LABORATORY | | [...] + | [facility] | [address] | [place] | [phone] | | [facility] | | [address] | | | - LABORATORY | | [...] | mL/min/1.73m2 | [facility] | | | AFGHAN | RATE,ESTIMATED | | MEDICAL | | | | mL/min/1.09g1Xoug than | | CENTER - | | [...] [address] | [place] | [phone] | | [facility] | | [address] | | | - LABORATORY | | [...] + | [facility] | [address] | [place], [place] | [phone] | | [facility] | | [address] | | | - LABORATORY | | [...] | | POC | | | [facility] | | | | | | [...] [address] | [place] | [phone] | | [facility] | | [address] | | | - LABORATORY | | [...] + | [facility] | [address] | [place] | [phone] | | [facility] | | [address] | | | - LABORATORY | | [...] [address] | [place] | [phone] | | [facility] | | [address] | | | - LABORATORY | | [...] + | [facility] | [address] | [place] | [phone] | | [facility] | | [address] | | | - LABORATORY | | [...] + | [facility] | [address] | [place] | [phone] | | [facility] | | [address] | | | - LABORATORY | | [...] ST. | [address] | [place], [place] | [phone] | | [facility] | | [address] | | | - LABORATORY | | [...] + | [facility] | [address] | [place] | [phone] | | [facility] | | [address] | | | - LABORATORY | | [...] mL/min/1.73m2 | [facility] | | | AFGHAN | RATE,ESTIMATED | | MEDICAL | | | | mL/min/1.47n1Fiiw than | | CENTER - | | [...] ST. | [address] | [place], [place] | [phone] | | [facility] | | [address] | | | - LABORATORY | | [...] [address] | [place] | [phone] | | [facility] | | [address] | | | - LABORATORY | | [...] | REFERENCE | | | | of [place] [facility] | | LAB [facility] | | | | standards require a | | - BKR | | | | culture to beperformed | | | | | | on CSF specimens | | | | | | submitted for bacterial | | | | | | antigen testing.(CAP | | | | | | [id number]) Urine | | | | | | specimens will not be | | | | | | cultured. | | | | + + + + + + + + | Specimen | + + | Urine | + + + + + | Narrative | Performed At | + + + | Performed at: 01 - [facility] [place] [address] [facility], | REFERENCE LAB | | [place], [place] [id number] Occasional Babysitter: Christ Dela MD, Phone: | [facility] | | [phone] | | + + + + + + + + | Performing | Address | City/State/Zipcode | Phone Number | | Organization | | | | + + + + + | REFERENCE LAB | [address] | [place], [place] | [phone] | | [facility] | [facility] | [address] | | + + + + + [...] + | [facility] | [address] | [place] | [phone] | | [facility] | | [address] | | | - LABORATORY | | [...] - 1.030 | [facility] | | | [place], | | | [facility] | | [...] [address] | [place] | [phone] | | [facility] | | [address] | | | - LABORATORY | | [...] | | | | | | use [place] 10/325 if ordered. If | | | [...] scheduled: AC, NPO, Daytime | | | 1694-7776 Use NIGHT DOSE for | | | doses scheduled: HS, 3AM, | | | Nighttime 7657-6034, | | + +---+ | | | [...] | | | MEALS, First dose on [facility] 11/24/17 | | | | | [...]
--- OUTSIDE RECORDS SUMMARY | ~2019-08-08 | XMS | Encounter Summary ---
Demographics + + + | Address | [address] | | | [place] [address] | + + + | Home Phone [...] + | Jessica Shepard | ECON | [id number] | | | | | [place] | | | | | [address] | | + + + + + | Bel Solis | ECON | Unknown | | + + + + + Care Team Providers + +------+ + | Care Wrapper Sorter Name | Role | Phone | + +------+ + PCP | Unavailable | + +------+ + Encounter Details +--------+ + + + + | Date | Type | Department | Care Team | Description | +--------+ + + + + | 02/22/ | Hospital | [facility] | | | | 2000 | Encounter | MED [facility] XRAY [address] | | | | | | [place] | | | | | | [place] [address] | | | | | | [phone] | | | +--------+ + + + [...]
--- OUTSIDE RECORDS SUMMARY | ~2019-08-08 | XMS | Encounter Summary ---
Demographics + + + | Address | [address] | | | [place] [address] | + + + | Home Phone [...] + | Jessica Shepard | ECON | [address] | | | | | [place] | | | | | [address] | | + + + + + | Bel Solis | ECON | Unknown | | + + + + + Care Team Providers + +------+ + | Care Sail Repair Person Name | Role | Phone | + [...] + + | 04/25/ | Documentati | [facility] | Dylan Gaston, | Results (CBC, CMP, | | 2020 | on | INFECTIOUS DISEASE | Hero Malave MD | ESR, CRP, Vanco | | | | [address] | [address] | [place]) | | | | [place], [place] | [place] [address] | | | | | [address] | [phone] | | | | | [phone] | | | +--------+ + + + [...] of this encounter Progress Notes Kady Westbrook, Patient Care Technician Instructor - 04/25/2019 1:18 PM PSTReceived lab results [...] + + | REFERENCE LAB | [address] | [place], [place] | [phone] | | [facility] | | [address] | | + + + + + [...] + + | REFERENCE LAB | [address] | [place], [place] | [phone] | | [facility] | | [address] | | + + + + + [...] + + + | REFERENCE LAB | [address] | [place] | [phone] | | [facility] | | [address] | | + + + + + [...] + + | REFERENCE LAB | [address] | [place] | [phone] | | [facility] | | [address] | | + + + + + [...] + + + | REFERENCE LAB | [address] | [place] | [phone] | | [facility] | | [address] | | + + + + + [...]
--- OUTSIDE RECORDS SUMMARY | ~2019-08-08 | XMS | Encounter Summary ---
Demographics + + + | Address | [address] | | | [place] [address] | + + + | Home Phone [...] + | Jessica Shepard | ECON | [phone] | | | | | [place] | | | | | [address] | | + + + + + | Bel Solis | ECON | Unknown | | + + + + + Care Team Providers + +------+ + | Care Supervisor [employer] Name | Role | Phone | + [...] + + | 04/23/ | Telephone | [facility] | Dianna Hernandez, | Follow-up | | 2019 | | VASCULAR SURGERY | Program Assistant | | | | | [address] | | | | | | [place] | | | | | | [address] | | | | | | [phone] | | | +--------+ + + + [...]
--- OUTSIDE RECORDS SUMMARY | ~2019-08-08 | XMS | Encounter Summary ---
Demographics + + + | Address | [address] | | | [place] [address] | + + + | Home Phone [...] + | Jessica Shepard | ECON | [address] | | | | | [place] | | | | | [address] | | + + + + + | Bel Solis | ECON | Unknown | | + + + + + Care Team Providers + +------+ + | Care Graphic Arts Instructor Name | Role | Phone | + [...] + + | 04/23/ | Telephone | [facility] | Dianna Hernandez, | Follow-up | | 2019 | | VASCULAR SURGERY | [employer] | | | | | [address] | | | | | | [place] | | | | | | [address] | | | | | | [phone] | | | +--------+ + + + [...]
--- OUTSIDE RECORDS SUMMARY | ~2019-08-08 | XMS | Encounter Summary ---
Demographics + + + | Address | [address] | | | [place] [address] | + + + | Home Phone [...] + | Jessica Shepard | ECON | [id number] | | | | | [place] | | | | | [address] | | + + + + + | Bel Solis | ECON | Unknown | | + + + + + Care Team Providers + +------+ + | Care Parts Picker Name | Role | Phone | + [...] + | 05/11/ | Telephone | [facility] | [place] Mcguire | Other (care | | 2020 | | INFECTIOUS DISEASE | [place] | coordination- | | | | [address] | | vancomycin trough ) | | | | [place] | | | | | | [address] | | | | | | [phone] | | | +--------+ + + + [...]
--- OUTSIDE RECORDS SUMMARY | ~2019-08-08 | XMS | Encounter Summary ---
Demographics + + + | Address | [address] | | | [place] [address] | + + + | Home Phone | | + + + | Preferred Language | Unknown | + + + | Marital Status | | + + + | Uatsdin Affiliation | [id number] | + + + [...] + | Jessica Shepard | ECON | [address] | | | | | [place] | | | | | [address] | | + + + + + | Bel Solis | ECON | Unknown | | + + + + + Care Team Providers + +------+ + | Care Sandblaster Supervisor Name | Role | Phone | + +------+ + | Jamar Manuel MD | PCP | | + +------+ + Encounter Details +--------+---------+ + + + | Date | Type | Department | Care Team | Description | +--------+---------+ + + + | 04/10/ | Surgery | [facility] | Aleksander Montiel, | CYSTOSCOPY | | 2019 | | [facility] | MD Nash SMITH | | | | | OPERATING ROOM [address] [place], [place] | | | | | [facility] | [address] | | | | | [place], [place] | [phone] | | | | | [address] | | | | | | [phone] | | | +--------+---------+ + + + [...] other chronic comorbidities who pre sents to [facility] ER on 04/06 for shortness of breath admitted with 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 The patient was admitted to regular medical floor and started on optimal medical management . On-call gravedigger (Dr. Ruelas) recommended continued medical management. Patient [...] inferior defect with partial improvement at rest waste reduction coordinator was i nformed by hospitalist colleague [...] their primary care provider within 1 w mo[place]gan after discharge, follow-up with ID in 2 weeks after discharge, follow-up with vascular s urgery as per their recommendations or otherwise within 2 weeks after discharge. The patien t will need to follow-up with his outpatient gravedigger within 1 to 2 weeks after discharg [...] Results Results Reviewed. Discharge Information: Follow up: [facility] SAMM [address] [facility] [address] Bhanu Seaman PA-C [address] [place] [facility] [address] In 2 weeks Jamar Manuel MD [address] [place] [address] Schedule an appointment as soon as possible for a visit in 1 week Hero Gaston MD [address] [facility] [address] Schedule an appointment as soon as possible for a visit in 2 weeks Post hospital discharge follow-up Dr. New Ruelas [address] [facility] [address] [facility] [address] Schedule an appointment as [...] mg per tablet aka: NORCO . Disposition: longterm Condition: Stable Code Status: Full Code Discharge took 45 minutes, to include final examination, discussion of admission, and prepa ration of prescriptions, instructions for on-going care, follow-up and documentation of disc harge summary. Scooetr Davies MD 11:53 AM 04/21/2019 documented in [...] numbness Complications from anesthesia Date Last Reviewed: 08/20/201519996883-[address] [employer] [place] [id number]. All righ ts reserved. This information is [...] Wakefield PA-C - 04/21/2019 8:21 AM PST [facility]: Vascular Surgery Progress Note SUBJECTIVE Patient Summary: 74 y.o. man with complex medical issues and LE ischemic ulcers, he wa s recently admitted to the [facility] from 03/28/19 to 04/04/19 where he was treated/ diagnosed with systolic heart failure, type 2 VA/NSTEMI, SHAE, ARF. O2 desaturation brought him from SNF to [facility] and current admission today [...] AM PSTHydrocodone x 1 given PRN pain. WNEDY right groin to bulb suction, o utput [...] Holliday RN - 04/20/2019 4:40 PM PST [facility]: Wound Care Follow Up Note [...] Primary Wound Type: Diabetic Ulcer Side: Left [place] ation: lateral Location: foot Wound Subtype: ulceration, [...] M D - 04/20/2019 2:16 PM PST [facility]: Hospitalist Progress Note Pt: Reagan [...] hematuria. Recent history notable for admit to [facility] from 03/28/19 to 04/04/2019 for CHF exacerbation with eventual dischar ge to [facility]. He then re-presented to same [...] encounter as of 04/20/19-14:16 IMAGING: Reviewed in [facility], no new results. PROBLEM LIST [...] Received 8 days of IV antibiotics at [facility] discharged home on with augmentin, now readmitted on 04/06 at [facility] and started on rocephin after [...] SQH Code status: Full Dispo: back to [facility] pending recovery from vascular bypass [...] as indicated. Thank You, Sunshine Love, PharmD, [facility] 04/20/19 1:52 PM Nandini Sánchez se, MD - 04/20/2019 8:56 AM PST [facility]: Infectious Diseases Progress Note Hospital [...] Component Value Units Date/Time Culture, Wound, Superficial [[id number]] (Abnormal) (Susceptibility) Collected: 04/06/191545 Order Status: Completed Lab Status: Final result Updated: 04/11/19727 Specimen: Body Fluid from Heel, Right Special Requests LT FOOT Special Requests Testing performed at [facility];[address] [place] [address] RESULT -- 1+ ENTEROCOCCUS FAECALIS Aminoglycosides (except [...] Sensitive SUSCEPTIBLE JESSICA Final Testing performed at [facility], [address] [place] [address] Culture, Wound, Superficial [[id number]] Collected: 04/06/191545 Order Status: Completed Lab Status: Final result Updated: 04/08/1937 Specimen: Body Fluid from Heel, Right Special Requests RIGHT FOOT Special Requests Testing performed at [facility];[address] [place] [address] RESULT -- 1+ NORMAL SKIN CELSA ISOLATED RESULT NO FURTHER WORKUP RESULT Testing performed at [facility], [address] [place] [address] Comment: Testing performed at [facility], [address] [place] [address] Microbiology Results (72 hrs) No results found [...] assisting with dosing and monitorization. Discussed with assistant case manager regarding OPAT. Discussed with assistant case manager regarding discharge planning. Dr. Dolan will take over ID service tomorrow. Please call if questions. Hero Richardson MD, MPH Infectious Diseases 04/20/19 Sheila Gage RN - 04/19/2019 7:20 PM PSTEnd of shift chart check complete. Sheila Cabrera RN Sunshine Chen, [facility] - 04/19/2019 3:23 PM PSTFormatting of [...] Shaver MD - 04/19/2019 2:46 PM PST [facility]: Hospitalist Progress Note Pt: Reagan [...] hematuria. Recent history notable for admit to [facility] from 03/28/19 to 04/04/2019 for CHF exacerbation with eventual dischar ge to [facility]. He then re-presented to same [...] Received 8 days of IV antibiotics at [facility] discharged home on with augmentin, now readmitted on 04/06 at [facility] and started on rocephin after [...] SQH Code status: Full Dispo: back to [facility] pending recovery from vascular bypass surgery, final ID recs , tentatively planning for ~04/21 Grover Charles MD 2:46 PM 04/19/2019 Portions of this chart may have been copied from previous notes for continuity of care purp ose Hero Sánchez MD - 04/19/2019 9:53 AM PSTFormatting of this note might be different from the ramiro ragsdale. [facility]: Infectious Diseases Progress Note Hospital [...] Component Value Units Date/Time Culture, Wound, Superficial [[id number]] (Abnormal) (Susceptibility) Collected: 04/06/19 1546 Order Status: Completed Lab Status: Final result Updated: 04/11/1928 Specimen: Body Fluid from Heel, Right Special Requests LT FOOT Special Requests Testing performed at [facility];[address] [place] [address];[place] [address] RESULT -- 1+ ENTEROCOCCUS FAECALIS Aminoglycosides (except [...] Sensitive SUSCEPTIBLE JESSICA Final Testing performed at [facility], [address] [place] [address] Culture, Wound, Superficial [[id number]] Collected: 04/06/19 1546 Order Status: Completed Lab Status: Final result Updated: 04/08/1937 Specimen: Body Fluid from Heel, Right Special Requests RIGHT FOOT Special Requests Testing performed at [facility];[address] [place] [address] RESULT -- 1+ NORMAL SKIN CELSA ISOLATED RESULT NO FURTHER WORKUP RESULT Testing performed at [facility], [address] [place] [address] Comment: Testing performed at [facility], [address] [place] [address] Culture, Blood [[id number]] Collected: 04/06/19 0338 Order Status: Completed Lab Status: Final result Updated: 04/12/1952 Specimen: Peripheral Blood Special Requests R WRIST Special Requests Testing performed at [facility];[address] [place] [address] RESULT NO GROWTH 6 DAYS RESULT Testing performed at [facility], [address] [place] [address] Comment: Testing performed at [facility], [address] [place] [address] Culture, Blood [[id number]] Collected: 04/06/19 0331 Order Status: Completed Lab Status: Final result Updated: 04/12/1952 Specimen: Peripheral Blood Special Requests L WRIST Special Requests Testing performed at [facility];[address] [place] [address] RESULT NO GROWTH 6 DAYS RESULT Testing performed at [facility], [address] [place] [address] Comment: Testing performed at [facility], [address] [place] [address] Microbiology Results (72 hrs) No results found [...] might be different from the o sheryl. [facility]: Vascular Surgery Progress Note SUBJECTIVE Patient Summary: 74 y.o. man with complex medical issues and LE ischemic ulcers, he wa s recently admitted to the [facility] from 03/28/19 to 04/04/19 where he was treated/ diagnosed with systolic heart failure, type 2 VA/NSTEMI, SHAE, ARF. O2 desaturation brought him from SNF to [facility] and current admission today [...] Rachel Patino RN - 04/19/2019 5:46 AM [id number] left foot dressing change complete per order. [...] Grover Shaver MD - 4:52 PM PST [facility]: Hospitalist Progress Note Pt: Reagan Shepard AGE/SEX: 74 y.o. male ROOM: [facility] OR INTRA OP POOL/[facility]* : 1945 PCP: Jamar [...] hematuria. Recent history notable for admit to [facility] from 03/28/19 to 04/04/2019 for CHF exacerbation with eventual dischar ge to [facility]. He then re-presented to same [...] the last 72 hours. IMAGING: Reviewed in [facility], no new results. PROBLEM LIST [...] Received 8 days of IV antibiotics at [facility] discharged home on with augmentin, now readmitted on 04/06 at [facility] and started on rocephin after [...] SQH Code status: Full Dispo: back to [facility] pending cardiac evaluation/optimization, vascular bypass [...] as indicated. Thank You, Sunshine Love, PharmD, [facility] 04/18/19 2:45 PM Syed López PTA [...] might be different from t kevin original. [facility]: Infectious Diseases Progress Note Hospital [...] Component Value Units Date/Time Culture, Wound, Superficial [[id number]] (Abnormal) (Susceptibility) Collected: 04/06/19 1546 Order Status: Completed Lab Status: Final result Updated: 04/11/19 0728 Specimen: Body Fluid from Heel, Right Special Requests LT FOOT Special Requests Testing performed at [facility];[address] [place] [address];[place] [address] RESULT -- 1+ ENTEROCOCCUS FAECALIS Aminoglycosides (except [...] Sensitive SUSCEPTIBLE JESSICA Final Testing performed at [facility], [address] [place] [address] Culture, Wound, Superficial [[id number]] Collected: 04/06/19 1546 Order Status: Completed Lab Status: Final result Updated: 04/08/1937 Specimen: Body Fluid from Heel, Right Special Requests RIGHT FOOT Special Requests Testing performed at [facility];[address] [place] [address] RESULT -- 1+ NORMAL SKIN CELSA ISOLATED RESULT NO FURTHER WORKUP RESULT Testing performed at [facility], [address] [place] [address] Comment: Testing performed at [facility], [address] [place] [address] Culture, Blood [[id number]] Collected: 04/06/198 Order Status: Completed Lab Status: Final result Updated: 04/12/1952 Specimen: Peripheral Blood Special Requests R WRIST Special Requests Testing performed at [facility];[address] [place] [address] RESULT NO GROWTH 6 DAYS RESULT Testing performed at [facility], [address] [place] [address] Comment: Testing performed at [facility], [address] [place] [address] Culture, Blood [[id number]] Collected: 04/06/19330 Order Status: Completed Lab Status: Final result Updated: 04/12/1952 Specimen: Peripheral Blood Special Requests L WRIST Special Requests Testing performed at [facility];[address] [place] [address] RESULT NO GROWTH 6 DAYS RESULT Testing performed at [facility], [address] [place] [address] Comment: Testing performed at [facility], [address] [place] [address] Microbiology Results (72 hrs) No results found [...] might be different from the o riginal. [facility]: Vascular Surgery Progress Note SUBJECTIVE Patient Summary: 74 y.o. man with complex medical issues and LE ischemic ulcers, he wa s recently admitted to the [facility] from 03/28/19 to 04/04/19 where he was treated/ diagnosed with systolic heart failure, type 2 VA/NSTEMI, SHAE, ARF. O2 desaturation brought him from SNF to [facility] and current admission today [...] of shift chart check review Sunshine Chen [facility] - 04/17/2019 1:38 PM PST Vancomycin [...] indicated. Thank You, Sunshine Love, PharmD, [facility] 04/17/19 1:38 PM Grover Shaver MD - 04/17/2019 12:25 PM PST [facility]: Hospitalist Progress Note Pt: Reagan Shepard AGE/SEX: 74 y.o. male ROOM: [address] [place] [address] : 1945 PCP: Jamar Manuel MD ADMIT DATE: 04/06/2019 TODAY'S DATE: 04/17/2019 Hospital Day/Hospital Course: LOS: 11 days Mr. Shepard is a 74-year-old gentleman with a history of bilateral nonhealing diabetic trisha t ulcers, and history of TBI, stroke, insulin dependent DM, who presents with CHF exacerbati on with hospital course complicated by gross hematuria. Recent history notable for admit to [facility] from 03/28/19 to 04/04/2019 for CHF exacerbation with eventual dischar ge to [facility]. He then re-presented to same [...] the last 72 hours. IMAGING: Reviewed in [facility], no new results. PROBLEM LIST [...] Received 8 days of IV antibiotics at [facility] discharged home on with augmentin, now readmitted on 04/06 at [facility] and started on rocephin after [...] SQH Code status: Full Dispo: back to [facility] pending cardiac evaluation/optimization, vascular bypass donna wero, final ID recs, tentatively planning for ~04/21 Grover Charles MD 12:25 PM 04/17/2019 Portions of this chart may have been copied from previous notes for continuity of care purp ose Rico Modi MD - 11:19 AM PST [facility]: Cardiology/[facility] Interventional cardiology note RE: Reagan [...] might be different from the origi nal. [facility]: Infectious Diseases Progress Note Hospital [...] Component Value Units Date/Time Culture, Wound, Superficial [[id number]] (Abnormal) (Susceptibility) Collected: 04/06/19 1546 Order Status: Completed Lab Status: Final result Updated: 04/11/19 0728 Specimen: Body Fluid from Heel, Right Special Requests LT FOOT Special Requests Testing performed at [facility];[address] [place] [address];[place] [address] RESULT -- 1+ ENTEROCOCCUS FAECALIS Aminoglycosides (except [...] Sensitive SUSCEPTIBLE JESSICA Final Testing performed at [facility], [address] [place] [address] Culture, Wound, Superficial [[id number]] Collected: 04/06/19 1546 Order Status: Completed Lab Status: Final result Updated: 04/08/19 0937 Specimen: Body Fluid from Heel, Right Special Requests RIGHT FOOT Special Requests Testing performed at [facility];[address] [place] [address] RESULT -- 1+ NORMAL SKIN CELSA ISOLATED RESULT NO FURTHER WORKUP RESULT Testing performed at [facility], [address] [place] [address] Comment: Testing performed at [facility], [address] [place] [address] Culture, Blood [[id number]] Collected: 04/06/19 0338 Order Status: Completed Lab Status: Final result Updated: 04/12/19 0652 Specimen: Peripheral Blood Special Requests R WRIST Special Requests Testing performed at [facility];[address] [place] [address] RESULT NO GROWTH 6 DAYS RESULT Testing performed at [facility], [address] [place] [address] Comment: Testing performed at [facility], [address] [place] [address] Culture, Blood [[id number]] Collected: 04/06/19 0331 Order Status: Completed Lab Status: Final result Updated: 04/12/19 0652 Specimen: Peripheral Blood Special Requests L WRIST Special Requests Testing performed at [facility];[address] [place] [address] RESULT NO GROWTH 6 DAYS RESULT Testing performed at [facility], [address] [place] [address] Comment: Testing performed at [facility], [address] [place] [address] Microbiology Results (72 hrs) No results found [...] Follow vancomycin levels. Discussed with attending provider: Grvoer Charles MD Monitoring toxicity of iv antibiotic [...] might be different from the o sheryl. [facility]: Vascular Surgery Progress Note SUBJECTIVE Patient Summary: 74 y.o. man with complex medical issues and LE ischemic ulcers, he wa s recently admitted to the [facility] from 03/28/19 to 04/04/19 where he was treated/ diagnosed with systolic heart failure, type 2 VA/NSTEMI, SHAE, ARF. O2 desaturation brought him from SNF to [facility] and current admission today [...] Sánchez MD - 04/16/2019 6:49 PM PST [facility]: Infectious Diseases Progress Note Hospital [...] Component Value Units Date/Time Culture, Wound, Superficial [[id number]] (Abnormal) (Susceptibility) Collected: 04/06/19 1546 Order Status: Completed Lab Status: Final result Updated: 04/11/19 0386 Specimen: Body Fluid from Heel, Right Special Requests LT FOOT Special Requests Testing performed at [facility];[address] [place] [address] RESULT -- 1+ ENTEROCOCCUS FAECALIS Aminoglycosides (except [...] SUSCEPTIBLE JESSICA Final Streptomycin synergy Sensitive SUSCEPTIBLE JESSIAC Final Vancomycin Sensitive SUSCEPTIBLE JESSICA Final Enterobacter [...] Sensitive SUSCEPTIBLE JESSICA Final Testing performed at [facility], [address] [place] [address] Culture, Wound, Superficial [[id number]] Collected: 04/06/19 1546 Order Status: Completed Lab Status: Final result Updated: 04/08/19 0937 Specimen: Body Fluid from Heel, Right Special Requests RIGHT FOOT Special Requests Testing performed at [facility];[address] [place] [address] RESULT -- 1+ NORMAL SKIN CELSA ISOLATED RESULT NO FURTHER WORKUP RESULT Testing performed at [facility], [address] [place] [address] Comment: Testing performed at [facility], [address] [place] [address] Culture, Blood [[id number]] Collected: 04/06/19 0338 Order Status: Completed Lab Status: Final result Updated: 04/12/19 0652 Specimen: Peripheral Blood Special Requests R WRIST Special Requests Testing performed at [facility];[address] [place] [address] RESULT NO GROWTH 6 DAYS RESULT Testing performed at [facility], [address] [place] [address] Comment: Testing performed at [facility], [address] [place] [address], [place] [address] Culture, Blood [[id number]] Collected: 04/06/19 0331 Order Status: Completed Lab Status: Final result Updated: 04/12/1952 Specimen: Peripheral Blood Special Requests L WRIST Special Requests Testing performed at [facility];[address] [place] [address];[place] [address] RESULT NO GROWTH 6 DAYS RESULT Testing performed at [facility], [address] [facility], [place] [address] Comment: Testing performed at [facility], [address] [place] [address], [place] [address] Microbiology Results (72 hrs) No results found [...] note might be different from the original. [facility]: Hospitalist Progress Note Pt: Reagan Shepard AGE/SEX: 74 y.o. male ROOM: [address] [place] [address] : 1945 PCP: Jamar Manuel MD ADMIT DATE: 04/06/2019 TODAY'S DATE: 04/16/2019 Hospital Day/Hospital Course: LOS: 10 days Mr. Shepard is a 74-year-old gentleman with a history of bilateral nonhealing diabetic trisah t ulcers, and history of TBI, stroke, insulin dependent DM, who presents with CHF exacerbati on with hospital course complicated by gross hematuria. Recent history notable for admit to [facility] from 03/28/19 to 04/04/2019 for CHF exacerbation with eventual dischar ge to [facility]. He then re-presented to same [...] Received 8 days of IV antibiotics at [facility] discharged home on with augmentin, now readmitted on 04/06 at [facility] and started on rocephin after [...] SQH Code status: Full Dispo: back to [facility] pending cardiac evaluation/optimization, vascular bypass [...] 04/16/2019 3:21 PM Sunshine Chen, [facility] - 04/16/2019 12:18 PM PST Vancomycin [...] Patient encouraged to discuss medication changes with gravedigger ragini stanley to stopping medications or making any changes. Patient's questions answered. Heart Fail ure Hot Line number provided to patient. Face to face time was spent with patient providing counseling and education for congestive heart failure. Bhanu Wakefield P A-C - 04/16/2019 8:43 AM PST [facility]: Vascular Surgery Progress Note SUBJECTIVE Patient Summary: 74 y.o. man with complex medical issues and LE ischemic ulcers, he wa s recently admitted to the [facility] from 03/28/19 to 04/04/19 where he was treated/ diagnosed with systolic heart failure, type 2 VA/NSTEMI, SHAE, ARF. O2 desaturation brought him from SNF to [facility] and current admission today [...] MD - 04/15/2019 1 2:48 PM PST [facility] Service: Hospitalist Progress Note Pt: Reagan Shepard AGE/SEX: 74 y.o. male ROOM: [facility]/4452- : 1945 PCP: Jamar Manuel MD ADMIT DATE: 04/06/2019 TODAY'S DATE: 04/15/2019 Hospital Day/Hospital Course: LOS: 9 days Mr. Shepard is a 74-year-old gentleman with a history of bilateral nonhealing diabetic trisha t ulcers, and history of TBI, stroke, insulin dependent DM, who presents with CHF exacerbati on with hospital course complicated by gross hematuria. Recent history notable for admit to [facility] from 03/28/19 to 04/04/2019 for CHF exacerbation with eventual dischar ge to [facility]. He then re-presented to same [...] 04/14/19 0629 BNP 587.58* IMAGING: Reviewed in [facility], no new results. PROBLEM LIST [...] risk stratification . -cardiology consulted -NPO at OR for nuc med stress test in morning [...] Received 8 days of IV antibiotics at [facility] discharged home on with augmentin, now readmitted on 04/06 at [facility] and started on rocephin after [...] SQH Code status: Full Dispo: back to [facility] pending cardiac evaluation/optimization, vascular bypass donna wero, final ID recs, likely 4-5 more days in hospital Grover Charles MD 12:48 PM 04/15/2019 Portions of this chart may have been copied from previous notes for continuity of care purp ose roctor, Sheila Brown [facility] - 04/15/2019 10:55 AM PST Vancomycin [...] might be differ ent from the original. [facility] Service: Infectious Diseases Progress Note Hospital [...] Component Value Units Date/Time Culture, Wound, Superficial [[id number]] (Abnormal) (Susceptibility) Collected: 04/06/19 1546 Order Status: Completed Lab Status: Final result Updated: 04/11/19 0728 Specimen: Body Fluid from Heel, Right Special Requests LT FOOT Special Requests Testing performed at [facility];[address] [place] [address] RESULT -- 1+ ENTEROCOCCUS FAECALIS Aminoglycosides (except [...] Sensitive SUSCEPTIBLE JESSICA Final Testing performed at [facility], [address] [place] [address] Culture, Wound, Superficial [[id number]] Collected: 04/06/19 1546 Order Status: Completed Lab Status: Final result Updated: 04/08/19 0937 Specimen: Body Fluid from Heel, Right Special Requests RIGHT FOOT Special Requests Testing performed at [facility];[address] [place] [address] RESULT -- 1+ NORMAL SKIN CELSA ISOLATED RESULT NO FURTHER WORKUP RESULT Testing performed at [facility], [address] [place] [address] Comment: Testing performed at [facility], [address] [place] [address]95[address] Culture, Blood [[id number]] Collected: 04/06/19 0338 Order Status: Completed Lab Status: Final result Updated: 04/12/1952 Specimen: Peripheral Blood Special Requests R WRIST Special Requests Testing performed at [facility];[address] [place] [address] 59126 RESULT NO GROWTH 6 DAYS RESULT Testing performed at [facility], [address] [place] [address] Comment: Testing performed at [facility], [address] [place] [address] 90243 Culture, Blood [[id number]] Collected: 04/06/19 0331 Order Status: Completed Lab Status: Final result Updated: 04/12/1952 Specimen: Peripheral Blood Special Requests L WRIST Special Requests Testing performed at [facility];[address] [place] [address] 51065 RESULT NO GROWTH 6 DAYS RESULT Testing performed at [facility], [facility] [place] [address] Comment: Testing performed at [facility], [address] [place] [address] 94649 Microbiology Results (72 hrs) No results found [...] might be different from the origin [facility] Service: Hospitalist Progress Note Pt: [...] hematuria. Recent history notable for admit to [facility] from 03/28/19 to 04/04/2019 for CHF exacerbation with eventual dischar ge to [facility]. He then re-presented to same [...] 04/14/19 0629 BNP 587.58* IMAGING: Reviewed in [facility], no new results. PROBLEM LIST [...] Received 8 days of IV antibiotics at [facility] discharged home on with augmentin, now readmitted on 04/06 at [facility] and started on rocephin after [...] age appropriate cancer screening PPx: [facility] Code status: Full Dispo: back to [facility] pending improvement in gross hematuria, CHF exacerbation, re peat angiogram, final ID recs, likely 4-5 more days in hospital Grover Charles MD 1:29 PM 04/14/2019 Portions of this chart may have been copied from previous notes for continuity of care purp ose Lyric Molina RN - 04/14/2019 1:27 PM PST [facility]: Wound Care Follow Up Note [...] any additional questions. Lyric Mclain RN, CMSRN, [facility] Inpatient Wound Ostomy Care [phone] 04/14/2019 1:29 PM Dheeraj Barraza, PT - [...] vs stable.Vandana Luciano RN obrandi, Meghan Wolff, [facility] - 04/14/2019 6:31 AM PST Vancomycin [...] indicated. Thank You, Meghan Calvillo, Pharm D, [facility] 04/14/2019, 6:19 AM Vancomycin Dosing History [...] Shaver MD - 04/13/2019 4:02 PM PST [facility] Service: Hospitalist Progress Note Pt: Reagan Shepard AGE/SEX: 74 y.o. male ROOM: [address] [place] [address] : 1945 PCP: Jamar Manuel MD ADMIT DATE: 04/06/2019 TODAY'S DATE: 04/13/2019 Hospital Day/Hospital Course: LOS: 7 days Mr. Shepard is a 74-year-old gentleman with a history of bilateral nonhealing diabetic trisha t ulcers, and history of TBI, stroke, insulin dependent DM, who presents with CHF exacerbati on with hospital course complicated by gross hematuria. Recent history notable for admit to [facility] from 03/28/19 to 04/04/2019 for CHF exacerbation with eventual dischar ge to [facility]. He then re-presented to same [...] Received 8 days of IV antibiotics at [facility] discharged home on with augmentin, now readmitted on 04/06 at [facility] and started on rocephin after [...] age appropriate cancer screening PPx: [facility] Code status: Full Dispo: back to [facility] pending improvement in gross hematuria, [...] kg Adjusted body weight: 89.1 kg [place] body weight: 73 kg Current Vital Signs: [...] [facility] Drawing a level once the patient [...] indicated. Thank You, Sunshine Love, PharmD, [facility] 04/13/19 3:20 PM Nandini Sánchez se, MD - 04/13/2019 10:54 AM PST [facility] Service: Infectious Diseases Progress Note Hospital [...] Component Value Units Date/Time Culture, Wound, Superficial [[id number]] (Abnormal) (Susceptibility) Collected: 04/06/19 1546 Order Status: Completed Lab Status: Final result Updated: 04/11/19 0728 Specimen: Body Fluid from Heel, Right Special Requests LT FOOT Special Requests Testing performed at [facility];[address] [place] [address];[place] [address] RESULT -- 1+ ENTEROCOCCUS FAECALIS Aminoglycosides (except [...] Sensitive SUSCEPTIBLE JESSICA Final Testing performed at [facility], [address] [place] [address]54 Culture, Wound, Superficial [[id number]] Collected: 04/06/19 1546 Order Status: Completed Lab Status: Final result Updated: 04/08/1937 Specimen: Body Fluid from Heel, Right Special Requests RIGHT FOOT Special Requests Testing performed at [facility];[address] [place] [address] RESULT -- 1+ NORMAL SKIN CELSA ISOLATED RESULT NO FURTHER WORKUP RESULT Testing performed at [facility], [address] [place] [address] Comment: Testing performed at [facility], [address] [place] [address] 40056 Culture, Blood [[id number]] Collected: 04/06/198 Order Status: Completed Lab Status: Final result Updated: 04/12/1952 Specimen: Peripheral Blood Special Requests R WRIST Special Requests Testing performed at [facility];[address] [place] [address] 00289 RESULT NO GROWTH 6 DAYS RESULT Testing performed at [facility], [address] [place] [address] Comment: Testing performed at [facility], [address] [place] [address] 37632 Culture, Blood [[id number]] Collected: 04/06/19330 Order Status: Completed Lab Status: Final result Updated: 04/12/1952 Specimen: Peripheral Blood Special Requests L WRIST Special Requests Testing performed at [facility];[address] [place] [address] 93954 RESULT NO GROWTH 6 DAYS RESULT Testing performed at [facility], [address] [place] [address] Comment: Testing performed at [facility], [address] [place] [address] 68779 Microbiology Results (72 hrs) No results found [...] might be different from the o sheryl. [facility] Service: Vascular Surgery Progress Note SUBJECTIVE Patient Summary: 74 y.o. man with complex medical issues and LE ischemic ulcers, he wa s recently admitted to the [facility] from 03/28/19 to 04/04/19 where he was treated/ diagnosed with systolic heart failure, type 2 VA/NSTEMI, SHAE, ARF. O2 desaturation brought him from SNF to [facility] and current admission today [...] risks. Signed consent obtained. Will proceed to [facility] today for right leg angiogram. Moderate Sedation [...] might be different from the o riginal. [facility]: Infectious Diseases Progress Note Hospital [...] Component Value Units Date/Time Culture, Wound, Superficial [[id number]] (Abnormal) (Susceptibility) Collected: 04/06/19 1546 Order Status: Completed Lab Status: Final result Updated: 04/11/19 0728 Specimen: Body Fluid from Heel, Right Special Requests LT FOOT Special Requests Testing performed at [facility];[address] [place] [address];[place] [address] RESULT -- 1+ ENTEROCOCCUS FAECALIS Aminoglycosides (except [...] Sensitive SUSCEPTIBLE JESSICA Final Testing performed at [facility], [address] [place] [address]142 Culture, Wound, Superficial [[id number]] Collected: 04/06/19 1546 Order Status: Completed Lab Status: Final result Updated: 04/08/19 0937 Specimen: Body Fluid from Heel, Right Special Requests RIGHT FOOT Special Requests Testing performed at [facility];[address] [place] [address] RESULT -- 1+ NORMAL SKIN CELSA ISOLATED RESULT NO FURTHER WORKUP RESULT Testing performed at [facility], [address] [place] [address] Comment: Testing performed at [facility], [address] [place] [address]608 Culture, Blood [[id number]] Collected: 04/06/19 0338 Order Status: Completed Lab Status: Final result Updated: 04/12/19 0652 Specimen: Peripheral Blood Special Requests R WRIST Special Requests Testing performed at [facility];[address] [place] [address] 57351 RESULT NO GROWTH 6 DAYS RESULT Testing performed at [facility], [address] [place] [address] Comment: Testing performed at [facility], [address] [place] [address]31 Culture, Blood [[id number]] Collected: 04/06/19 0331 Order Status: Completed Lab Status: Final result Updated: 04/12/19 0652 Specimen: Peripheral Blood Special Requests L WRIST Special Requests Testing performed at [facility];[address] [place] [address];[place] [address] RESULT NO GROWTH 6 DAYS RESULT Testing performed at [facility], [address] [place] [address] Comment: Testing performed at [facility], [address] [place] [address], [place] [address] Microbiology Results (72 hrs) No results found [...] might be different from the origi nal. [facility]: Hospitalist Progress Note Pt: Reagan [...] hematuria. Recent history notable for admit to [facility] from 03/28/19 to 04/04/2019 for CHF exacerbation with eventual dischar ge to [facility]. He then re-presented to same [...] Received 8 days of IV antibiotics at [facility] discharged home on with augmentin, now readmitted on 04/06 at [facility] and started on rocephin after [...] SQH Code status: Full Dispo: back to [facility] pending improvement in gross hematuria, CHF exacerbation, re peat angiogram, final ID recs, likely 4-5 more days in hospital Grover Charles MD 4:43 PM 04/12/2019 Portions of this chart may have been copied from previous notes for continuity of care purp ose Bhanu Wakefield PA-C - 04/12/2019 4:00 PM PST [facility] Service: Vascular Surgery Progress Note SUBJECTIVE Patient Summary: 74 y.o. man with complex medical issues and LE ischemic ulcers, he wa s recently admitted to the [facility] from 03/28/19 to 04/04/19 where he was treated/ diagnosed with systolic heart failure, type 2 VA/NSTEMI, SHAE, ARF. O2 desaturation brought him from SNF to [facility] and current admission today [...] Bhanu Seaman PA-C Vascular Surgery roSunshine streeter, [facility] - 04/12/2019 12:27 PM PST Vancomycin Dosing Per Pharmacy Subjective/Objective Reagan Shepard is a 74 y.o. 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 Additional antimicrobials: zosyn Quadriplegic/Paraplegic: no Diabetes: yes Baseline Serum Creatinine: 0.6 mg/dL Actual weight: 113.3 kg Adjusted body weight: 89.1 kg [place] body weight: 73 kg Current Vital Signs: [...] as indicated. Thank You, Sunshine Love, PharmD, [facility] 04/12/19 3:27 PM Grover Shaver MD - 04/11/2019 5:06 PM PST [facility]: Hospitalist Progress Note Pt: Reagan [...] hematuria. Recent history notable for admit to [facility] from 03/28/19 to 04/04/2019 for CHF exacerbation with eventual dischar ge to [facility]. He then re-presented to same hospital due to worsening SOB and again found to have CHF exacerbation though this time with elevated troponin to 0.17. Dr. Jessenia alwson called and accepted the patient in transfer [...] Received 8 days of IV antibiotics at [facility] discharged home on with augmentin, now readmitted on 04/06 at [facility] and started on rocephin after [...] above) Code status: Full Dispo: back to [facility] pending improvement in gross hematuria and CHF exacerbation Grover Charles MD 5:06 PM 04/11/2019 Portions of this chart may have been copied from previous notes for continuity of care purp ose roctor, Sheila Brown [facility] - 04/11/2019 2:03 PM PST Vancomycin Dosing Per Pharmacy Subjective/Objective Reagan Shepard is a 74 y.o. 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 Additional antimicrobials: zosyn Quadriplegic/Paraplegic: no Diabetes: yes Baseline Serum Creatinine: 0.6 mg/dL Actual weight: 113.3 kg Adjusted body weight: 89.1 kg [place] body weight: 73 kg Current Vital Signs: [...] nomogram, current renal function, and desired trough. [facility] ed on patient history, vancomycin 1250 [...] therapy as indicated. Thank You, Sheila Ahuja [facility], 04/11/2019, 1:51 PM Hero Sánchez MD - 04/11/2019 10:09 AM PSTFormatting of this note might be different from stephanie brown original. [facility]: Infectious Diseases Progress Note Hospital [...] Component Value Units Date/Time Culture, Wound, Superficial [[id number]] (Abnormal) (Susceptibility) Collected: 04/06/19 154 Order Status: Completed Lab Status: Final result Updated: 04/11/19727 Specimen: Body Fluid from Heel, Right Special Requests LT FOOT Special Requests Testing performed at [facility];[address] [place] [address];[place] [address] RESULT -- 1+ ENTEROCOCCUS FAECALIS Aminoglycosides (except [...] Sensitive SUSCEPTIBLE JESSICA Final Testing performed at [facility], [address] [place] [address], [place] [address] Culture, Wound, Superficial [[id number]] Collected: 04/06/19 1546 Order Status: Completed Lab Status: Final result Updated: 04/08/19936 Specimen: Body Fluid from Heel, Right Special Requests RIGHT FOOT Special Requests Testing performed at [facility];[address] [place] [address] RESULT -- 1+ NORMAL SKIN CELSA ISOLATED RESULT NO FURTHER WORKUP RESULT Testing performed at [facility], [address] [place] [address] Comment: Testing performed at [facility], [address] [place] [address] 16148 Culture, Blood [[id number]] Collected: 04/06/198 Order Status: Completed Lab Status: Preliminary result Updated: 04/07/19812 Specimen: Peripheral Blood Special Requests R WRIST Special Requests Testing performed at [facility];[address] [place] [address] 22056 RESULT NO GROWTH AT THIS TIME RESULT Testing performed at [facility], [address] [place] [address] 8[address]25 Comment: Testing performed at [facility], [address] [place] [address] 54558 Culture, Blood [[id number]] Collected: 04/06/191 Order Status: Completed Lab Status: Preliminary result Updated: 04/07/19812 Specimen: Peripheral Blood Special Requests L WRIST Special Requests Testing performed at [facility];[address] [place] [address] 70275 RESULT NO GROWTH AT THIS TIME RESULT Testing performed at [facility], [address] [place] [address]407 Comment: Testing performed at [facility], [address] [place] [address] 38412 Microbiology Results (72 hrs) No results found [...] Shaver MD - 04/10/2019 4:51 PM PST [facility]: Hospitalist Progress Note Pt: Reagan Shepard AGE/SEX: 74 y.o. male ROOM: [facility]/4452- : 1945 PCP: Jamar Manuel MD ADMIT DATE: 04/06/2019 TODAY'S DATE: 04/10/2019 Hospital Day/Hospital Course: LOS: 4 days Mr. Shepard is a 74-year-old gentleman with a history of bilateral nonhealing diabetic trisha t ulcers, and history of TBI, stroke, insulin dependent DM, who presents with CHF exacerbati on with hospital course complicated by gross hematuria. Recent history notable for admit to [facility] from 03/28/19 to 04/04/2019 for CHF exacerbation with eventual dischar ge to [facility]. He then re-presented to same [...] INR 1.2 PTT 34* IMAGING: Reviewed in [facility], no new results. PROBLEM LIST [...] Received 8 days of IV antibiotics at [facility] discharged home on with augmentin, now readmitted on 04/06 at [facility] and started on rocephin after [...] above) Code status: Full Dispo: back to [facility] pending improvement in gross hematuria and CHF exacerbation Grover Charles MD 4:51 PM 04/10/2019 Portions of this chart may have been copied from previous notes for continuity of care purp ose Hero Sánchez MD - 04/10/2019 2:27 PM PSTFormatting of this note might be different from the ramiro ragsdale. [facility]: Infectious Diseases Progress Note Hospital [...] Component Value Units Date/Time Culture, Wound, Superficial [[id number]] (Abnormal) (Susceptibility) Collected: 04/06/191545 Order Status: Completed Lab Status: Preliminary result Updated: 04/10/19929 Specimen: Body Fluid from Heel, Right Special Requests LT FOOT Special Requests Testing performed at [facility];[address] [place] [address];[place] [address] RESULT -- 1+ ENTEROCOCCUS FAECALIS Aminoglycosides (except for high-level resistance testing), cephalosporins, clindamycin, an d trimethoprim-sulfamethoxazole may appear active in vitro but they are not effective clinic ally. RESULT -- 1+ ENTEROBACTER CLOACAE COMPLEX RESULT -- 1+ STAPHYLOCOCCUS AUREUS RESULT SUSCEPTIBILITY TO FOLLOW RESULT Testing performed at [facility], [address] [place] [address] Susceptibility Enterococcus faecalis (1) Antibiotic Interpretation Microscan [...] Sensitive SUSCEPTIBLE JESSICA Preliminary Testing performed at [facility], [address] [place] [address], [place] [address] Culture, Wound, Superficial [[id number]] Collected: 04/06/191545 Order Status: Completed Lab Status: Final result Updated: 04/08/1937 Specimen: Body Fluid from Heel, Right Special Requests RIGHT FOOT Special Requests Testing performed at [facility];[address] [place] [address] RESULT -- 1+ NORMAL SKIN CELSA ISOLATED RESULT NO FURTHER WORKUP RESULT Testing performed at [facility], [address] [place] [address] Comment: Testing performed at [facility], [address] [place] [address] 28777 Culture, Blood [[id number]] Collected: 04/06/19337 Order Status: Completed Lab Status: Preliminary result Updated: 04/07/19812 Specimen: Peripheral Blood Special Requests R WRIST Special Requests Testing performed at [facility];[address] [place] [address] 41251 RESULT NO GROWTH AT THIS TIME RESULT Testing performed at [facility], [address] [place] [address] 28287 Comment: Testing performed at [facility], [address] [place] [address] 35256 Culture, Blood [[id number]] Collected: 04/06/19330 Order Status: Completed Lab Status: Preliminary result Updated: 04/07/19812 Specimen: Peripheral Blood Special Requests L WRIST Special Requests Testing performed at [facility];[address] [place] [address] 75938 RESULT NO GROWTH AT THIS TIME RESULT Testing performed at [facility], [address] [place] [address] 7[address] Comment: Testing performed at [facility], [address] [place] [address]119 Microbiology Results (72 hrs) No results found [...] this note might be different from the [facility] Service: Urology Progress Note Hospital Day: [...] of congestive failure. Signed by: Madison Solis [facility] Sign Date/Time: 04/09/2019 9:25 AM US [...] Lujan MD - 04/09/2019 6:21 PM PST [facility]: Urology Progress Note Hospital [...] Color, UA STRAW Clarity, UA CLEAR Specific [place], Urine 1.006 1.002 - 1.030 Leukocyte esterase, [...] of congestive failure. Signed by: Madison Solis, [facility] Sign Date/Time: 04/09/2019 9:25 AM PROBLEM [...] longstanding history of diabetes, hypertension, GERD, ac nisqually left hemiparesis, essential hypertension and very advanced [...] this note might be different from the [facility]: Vascular Surgery Progress Note SUBJECTIVE Patient Summary: 74 y.o. man with complex medical issues and LE ischemic ulcers, he wa s recently admitted to the [facility] from 03/28/19 to 04/04/19 where he was treated/ diagnosed with systolic heart failure, type 2 VA/NSTEMI, SHAE, ARF. O2 desaturation brought him from SNF to [facility] and current admission today [...] will have him scheduled for 04/12/2019 at [facility] for his first leg, then will plan [...] Hospitalist Progress Note Reagan Shepard 74 y.o. [id number] male Jamar Manuel MD Hospital Day: LOS: 3 days Patient Summary: 74-year-old gentleman with past medical history of bilateral nonheali ng diabetic foot ulcer, and history of traumatic brain injury, stroke, diabetes mellitus typ e 2 insulin-dependent who was recently admitted to [facility] from 03/28/21 020 with acute hypoxic respiratory failure secondary to systolic CHF exacerbation with eject ion fraction of 40%, CTA chest negative for PE, troponin was minimally elevated 0.44 treated conservatively with medical therapy discharge to [facility] who went back to [facility] emergency department with worsening shortness of [...] 04/09/2019 1044 Gross per 24 hour Intake 21910 ml Output 9850 ml Net 856 ml [...] home on on Augmentin readmitted on at [facility] and started on Rocephin after [...] might be different from the o riginal. [facility] Service: Podiatry Progress Note Hospital Day: LOS: 3 days Post-Op Day: * No surgery found * SUBJECTIVE Patient Summary: The patient is 74 y.o. male with significant cardiac and IDDM2 past medical history with recent admissions to [facility] where he was found to have el evated troponin level and he became decompensated and desaturated and was transferred to [facility] for a higher level of care. [...] Ady Mata RN - 04/08/2019 9:49 PM [id number]: pt a/o to all, vss. cbi in [...] Hospitalist Progress Note Reagan Shepard 74 y.o. [id number] male Jamar Manuel MD Hospital Day: LOS: 2 days Patient Summary: 74-year-old gentleman with past medical history of bilateral nonheali ng diabetic foot ulcer, and history of traumatic brain injury, stroke, diabetes mellitus typ e 2 insulin-dependent who was recently admitted to [facility] from 03/28/21 020 with acute hypoxic respiratory failure secondary to systolic CHF exacerbation with eject ion fraction of 40%, CTA chest negative for PE, troponin was minimally elevated 0.44 treated conservatively with medical therapy discharge to [facility] who went back to [facility] emergency department with worsening shortness of [...] home on on Augmentin readmitted on at [facility] and started on Rocephin after [...] might be different from th e original. [facility] Service: Cardiology Progress Note Hospital Day: [...] Nandini Barboza RN - 04/07/2019 10:48 PM [id number]: pt a/o to all, occasionally forgetful, vss. [...] Hospitalist Progress Note Reagan Shepard 74 y.o. [id number] male Jamar Manuel MD Hospital Day: LOS: 1 day Patient Summary: 74-year-old gentleman with past medical history of bilateral nonheali ng diabetic foot ulcer, and history of traumatic brain injury, stroke, diabetes mellitus typ e 2 insulin-dependent who was recently admitted to [facility] from 03/28/21 020 with acute hypoxic respiratory failure secondary to systolic CHF exacerbation with eject ion fraction of 40%, CTA chest negative for PE, troponin was minimally elevated 0.44 treated conservatively with medical therapy discharge to [facility] who went back to [facility] emergency department with worsening shortness of [...] home on on Augmentin readmitted on at [facility] and started on Rocephin after [...] might be different from th e original. [facility] Service: Cardiology Progress Note Hospital Day: [...] - 04/06/2019 10:15 AM [facility] Service: Wound/Ostomy Care Progress Note Wound care [...] | | | | right foot ([facility]) | 04/20/2019 until | | | | | | 04/20/2020 | + +---------+--------+ + + | Comprehensive | Lab | Routin | Other | Weekly for 2 | | Metabolic Panel | | e | osteomyelitis of | Occurrences starting | | | | | right foot ([facility]) | 04/20/2019 until | | | | | | 04/20/2020 | + +---------+--------+ + + | C-Reactive Protein | Lab | Routin | Other | Weekly for 6 | | | | e | osteomyelitis of | Occurrences starting | | | | | right foot ([facility]) | 04/20/2019 until | | | | | | 04/20/2020 | + +---------+--------+ + + | Sedimentation Rate | Lab | Routin | Other | Weekly for 6 | | | | e | osteomyelitis of | Occurrences starting | | | | | right foot ([facility]) | 04/20/2019 until | | | [...] | | | | | PST | ([facility]) Peripheral | | | | | | vascular disease | | | | | | ([facility]) Other | | | | | | osteomyelitis of | | | | | | right foot ([facility]) | | | | | | Essential | | | | | | hypertension Acute | | | | | | left hemiparesis | | | | | | ([facility]) | | + +--------+ + + [...] | | | | | performed at [facility];[address] | | | | | | [facility];[place], [place] | | | | | | [address] | | | | + + + + + + + + | Specimen | + + | Blood | + + + + + + + | Performing | Address | City/State/Zipcode | Phone Number | | Organization | | | | + + + + + | [facility] | [address] | [place] [address] | [phone] | + + + + + POC [...] | | | POC | performed at [facility];[address] | | LABORATORY | | | | [address];[place], [place] | | | | | | [address] | | | | + + + + + + + + | Specimen | + + | | + + + + + + + | Performing | Address | City/State/Zipcode | Phone Number | | Organization | | | | + + + + + | [facility] | [address] | [place] [address] | [phone] | + + + + + POC [...] | | | POC | performed at [facility];[address] | | LABORATORY | | | | [address];[place] | | | | | | [address] | | | | + + + + + + + + | Specimen | + + | | + + + + + + + | Performing | Address | City/State/Zipcode | Phone Number | | Organization | | | | + + + + + | [facility] | [address] | [place] [address] | [phone] | + + + + + POC Glucose (04/21/2019 5:12 AM PST) + + + + + + | Component | Value | Ref Range | Performed | Pathologist | | | | | At | Signature | + + + + + + | Glucose, | 146 (H)Comment: Testing | 65 - 99 mg/dL | [facility] | | | POC | performed at [facility];[address] | | LABORATORY | | | | [address];[place], [place] | | | | | | [address] | | | | + + + + + + + + | Specimen | + + | | + + + + + + + | Performing | Address | City/State/Zipcode | Phone Number | | Organization | | | | + + + + + | [facility] | [address] | [place] [address] | [phone] | + + + + + POC [...] | | | POC | performed at [facility];[address] | | LABORATORY | | | | [address];[place] | | | | | | [address] | | | | + + + + + + + + | Specimen | + + | | + + + + + + + | Performing | Address | City/State/Zipcode | Phone Number | | Organization | | | | + + + + + | [facility] | [address] | [place] [address] | [phone] | + + + + + POC Glucose (04/20/2019 5:30 PM PST) + + + + + + | Component | Value | Ref Range | Performed | Pathologist | | | | | At | Signature | + + + + + + | Glucose, | 220 (H)Comment: Testing | 65 - 99 mg/dL | [facility] | | | POC | performed at [facility];[address] | | LABORATORY | | | | [address];[place] | | | | | | [address] | | | | + + + + + + + + | Specimen | + + | | + + + + + + + | Performing | Address | City/State/Zipcode | Phone Number | | Organization | | | | + + + + + | [facility] | [address] | [place] [address] | [phone] | + + + + + POC Glucose (04/20/2019 5:04 PM PST) + + + + + + | Component | Value | Ref Range | Performed | Pathologist | | | | | At | Signature | + + + + + + | Glucose, | 199 (H)Comment: Testing | 65 - 99 mg/dL | [facility] | | | POC | performed at [facility];[address] | | LABORATORY | | | | [address];[place] | | | | | | [address] | | | | + + + + + + + + | Specimen | + + | | + + + + + + + | Performing | Address | City/State/Zipcode | Phone Number | | Organization | | | | + + + + + | [facility] | [address] | [place] [address] | [phone] | + + + + + POC [...] | | | POC | performed at [facility];[address] | | LABORATORY | | | | [address];[place], [place] | | | | | | [address] | | | | + + + + + + + + | Specimen | + + | | + + + + + + + | Performing | Address | City/State/Zipcode | Phone Number | | Organization | | | | + + + + + | [facility] | [address] | [place] [address] | [phone] | + + + + + Vancomycin Level (04/20/2019 12:39 PM PST) + + + + + + | Component | Value | Ref Range | Performed | Pathologist | | | | | At | Signature | + + + + + + | Vancomycin | 18.3Comment: Testing | ug/mL | [facility] | | | Random, | performed at [facility];[address] | | LABORATORY | | | Serum | [address];[place] | | | | | | [address] | | | | + + + + + + + + | Specimen | + + | Blood | + + + + + + + | Performing | Address | City/State/Zipcode | Phone Number | | Organization | | | | + + + + + | [facility] | [address] | [place] [address] | [phone] | + + + + + POC Glucose (04/20/2019 8:58 AM PST) + + + + + + | Component | Value | Ref Range | Performed | Pathologist | | | | | At | Signature | + + + + + + | Glucose, | 244 (H)Comment: Testing | 65 - 99 mg/dL | [facility] | | | POC | performed at [facility];[address] | | LABORATORY | | | | [address];[place] | | | | | | [address] | | | | + + + + + + + + | Specimen | + + | | + + + + + + + | Performing | Address | City/State/Zipcode | Phone Number | | Organization | | | | + + + + + | [facility] | [address] | [place] [address] | [phone] | + + + + + POC Glucose (04/20/2019 8:16 AM PST) + + + + + + | Component | Value | Ref Range | Performed | Pathologist | | | | | At | Signature | + + + + + + | Glucose, | 300 (H)Comment: Testing | 65 - 99 mg/dL | [facility] | | | POC | performed at [facility];[address] | | LABORATORY | | | | [address];[place], [place] | | | | | | [address] | | | | + + + + + + + + | Specimen | + + | | + + + + + + + | Performing | Address | City/State/Zipcode | Phone Number | | Organization | | | | + + + + + | [facility] | [address] | [place] [address] | [phone] | + + + + + POC [...] | | | POC | performed at [facility];[address] | | LABORATORY | | | | [address];[place] | | | | | | [address] | | | | + + + + + + + + | Specimen | + + | | + + + + + + + | Performing | Address | City/State/Zipcode | Phone Number | | Organization | | | | + + + + + | [facility] | [address] | [place] [address] | [phone] | + + + + + POC [...] | | | POC | performed at [facility];[address] | | LABORATORY | | | | [address];[place], [place] | | | | | | [address] | | | | + + + + + + + + | Specimen | + + | | + + + + + + + | Performing | Address | City/State/Zipcode | Phone Number | | Organization | | | | + + + + + | [facility] | [address] | [place] [address] | [phone] | + + + + + POC Glucose (04/19/2019 12:44 PM PST) + + + + + + | Component | Value | Ref Range | Performed | Pathologist | | | | | At | Signature | + + + + + + | Glucose, | 209 (H)Comment: Testing | 65 - 99 mg/dL | [facility] | | | POC | performed at [facility];[address] | | LABORATORY | | | | [address];[place] | | | | | | [address] | | | | + + + + + + + + | Specimen | + + | | + + + + + + + | Performing | Address | City/State/Zipcode | Phone Number | | Organization | | | | + + + + + | [facility] | [address] | [place] [address] | [phone] | + + + + + POC Glucose (04/19/2019 8:13 AM PST) + + + + + + | Component | Value | Ref Range | Performed | Pathologist | | | | | At | Signature | + + + + + + | Glucose, | 176 (H)Comment: Testing | 65 - 99 mg/dL | [facility] | | | POC | performed at [facility];[address] | | LABORATORY | | | | [address];[place], [place] | | | | | | [address] | | | | + + + + + + + + | Specimen | + + | | + + + + + + + | Performing | Address | City/State/Zipcode | Phone Number | | Organization | | | | + + + + + | [facility] | [address] | [place] [address] | [phone] | + + + + + Basic [...] | | | | | performed at [facility], [address] | | | | | | [facility], | | | | | | [place] [address] | | | | + + + + + + + + | Specimen | + + | Blood | + + + + + + + | Performing | Address | City/State/Zipcode | Phone Number | | Organization | | | | + + + + + | [facility] | [address] | [place] [address] | [phone] | + + + + + CBC [...] | | | | | performed at [facility], [address] | | | | | | [address] [employer], | | | | | | [place] [address] | | | | | |MICRO | | | | | |NORMAL PLT MORPH | | | | | |Testing performed at [facility], [address] [facility], [place] [address] | | | | | | | | | | + + +---- + + + + + | Specimen | + + | Blood | + + + + + + + | Performing | Address | City/State/Zipcode | Phone Number | | Organization | | | | + + + + + | [facility] | [address] | [place] [address] | [phone] | + + + + + POC [...] | | | POC | performed at [facility];[address] | | LABORATORY | | | | [address];[place] | | | | | | [address] | | | | + + + + + + + + | Specimen | + + | | + + + + + + + | Performing | Address | City/State/Zipcode | Phone Number | | Organization | | | | + + + + + | [facility] | [address] | [place] [address] | [phone] | + + + + + POC Glucose (04/18/2019 9:02 PM PST) + + + + + + | Component | Value | Ref Range | Performed | Pathologist | | | | | At | Signature | + + + + + + | Glucose, | 295 (H)Comment: Testing | 65 - 99 mg/dL | [facility] | | | POC | performed at [facility];[address] | | LABORATORY | | | | [address];[place] | | | | | | [address] | | | | + + + + + + + + | Specimen | + + | | + + + + + + + | Performing | Address | City/State/Zipcode | Phone Number | | Organization | | | | + + + + + | [facility] | [address] | [place] [address] | [phone] | + + + + + POC Glucose (04/18/2019 8:01 PM PST) + + + + + + | Component | Value | Ref Range | Performed | Pathologist | | | | | At | Signature | + + + + + + | Glucose, | 245 (H)Comment: Testing | 65 - 99 mg/dL | [facility] | | | POC | performed at [facility];[address] | | LABORATORY | | | | [address];[place] | | | | | | [address] | | | | + + + + + + + + | Specimen | + + | | + + + + + + + | Performing | Address | City/State/Zipcode | Phone Number | | Organization | | | | + + + + + | [facility] | [address] | [place] [address] | [phone] | + + + + + POC Glucose (04/18/2019 6:08 PM PST) + + + + + + | Component | Value | Ref Range | Performed | Pathologist | | | | | At | Signature | + + + + + + | Glucose, | 181 (H)Comment: Testing | 65 - 99 mg/dL | [facility] | | | POC | performed at [facility];[address] | | LABORATORY | | | | [address];[place], [place] | | | | | | [address] | | | | + + + + + + + + | Specimen | + + | | + + + + + + + | Performing | Address | City/State/Zipcode | Phone Number | | Organization | | | | + + + + + | [facility] | [address] | [place] [address] | [phone] | + + + + + POC [...] | | | POC | performed at [facility];[address] | | LABORATORY | | | | [address];[place], [place] | | | | | | [address] | | | | + + + + + + + + | Specimen | + + | | + + + + + + + | Performing | Address | City/State/Zipcode | Phone Number | | Organization | | | | + + + + + | [facility] | [address] | [place] [address] | [phone] | + + + + + NM [...] Testing | 65 - 99 mg/dL | [facility] | | | POC | performed at [facility];[address] | | LABORATORY | | | | [address];[place] | | | | | | [address] | | | | + + + + + + + + | Specimen | + + | | + + + + + + + | Performing | Address | City/State/Zipcode | Phone Number | | Organization | | | | + + + + + | [facility] | [address] | [place] [address] | [phone] | + + + + + Basic [...] | | | | | performed at [facility];[address] | | | | | | [address];[place], [place] | | | | | | [address] | | | | + + + + + + + + | Specimen | + + | Blood | + + + + + + + | Performing | Address | City/State/Zipcode | Phone Number | | Organization | | | | + + + + + | [facility] | [address] | [place] [address] | [phone] | + + + + + CBC [...] | | | Estimate | performed at [facility] | | LABORATORY | | | | [address];[place] | | | | | | [address] | | | | + + + + + + + + | Specimen | + + | Blood | + + + + + + + | Performing | Address | City/State/Zipcode | Phone Number | | Organization | | | | + + + + + | [facility] | [address] | [place] [address] | [phone] | + + + + + POC Glucose (04/17/2019 8:41 PM PST) + + + + + + | Component | Value | Ref Range | Performed | Pathologist | | | | | At | Signature | + + + + + + | Glucose, | 183 (H)Comment: Testing | 65 - 99 mg/dL | [facility] | | | POC | performed at [facility];[address] | | LABORATORY | | | | [address];[place], [place] | | | | | | [address] | | | | + + + + + + + + | Specimen | + + | | + + + + + + + | Performing | Address | City/State/Zipcode | Phone Number | | Organization | | | | + + + + + | [facility] | [address] | [place] [address] | [phone] | + + + + + POC [...] | | | POC | performed at [facility];[address] | | LABORATORY | | | | [address];[place] | | | | | | [address] | | | | + + + + + + + + | Specimen | + + | | + + + + + + + | Performing | Address | City/State/Zipcode | Phone Number | | Organization | | | | + + + + + | [facility] | [address] | [place] [address] | [phone] | + + + + + Vancomycin, Trough (04/17/2019 12:30 PM PST) + + + + + + | Component | Value | Ref Range | Performed | Pathologist | | | | | At | Signature | + + + + + + | Vancomycin, | 17.2Comment: 15 to 20 | 10 - 20 ug/mL | [facility] | | | Trough | [...] | | | | | performed at [facility];[address] | | | | | | [address];[place] | | | | | | [address] | | | | + + + + + + + + | Specimen | + + | Blood | + + + + + + + | Performing | Address | City/State/Zipcode | Phone Number | | Organization | | | | + + + + + | [facility] | [address] | [place] [address] | [phone] | + + + + + POC [...] | | | POC | performed at [facility];[address] | | LABORATORY | | | | [address];[place] | | | | | | [address] | | | | + + + + + + + + | Specimen | + + | | + + + + + + + | Performing | Address | City/State/Zipcode | Phone Number | | Organization | | | | + + + + + | [facility] | [address] | [place] [address] | [phone] | + + + + + POC [...] | | | POC | performed at [facility];[address] | | LABORATORY | | | | [address];[place] | | | | | | [address] | | | | + + + + + + + + | Specimen | + + | | + + + + + + + | Performing | Address | City/State/Zipcode | Phone Number | | Organization | | | | + + + + + | [facility] | [address] | [place] [address] | [phone] | + + + + + POC [...] | | | POC | performed at [facility];[address] | | LABORATORY | | | | [address];[place], [place] | | | | | | [address] | | | | + + + + + + + + | Specimen | + + | | + + + + + + + | Performing | Address | City/State/Zipcode | Phone Number | | Organization | | | | + + + + + | [facility] | [address] | [place] [address] | [phone] | + + + + + Basic [...] | | | | | performed at [facility], [address] | | | | | | [facility], | | | | | | [place] [address] | | | | + + + + + + + + | Specimen | + + | Blood | + + + + + + + | Performing | Address | City/State/Zipcode | Phone Number | | Organization | | | | + + + + + | [facility] | [address] | [place] [address] | [phone] | + + + + + CBC [...] | | | | | performed at [facility], [address] | | | | | | [facility], | | | | | | [place] [address] | | | | | |MICRO | | | | | |NORMAL PLT MORPH | | | | | |Testing performed at [facility], [address] [facility], [place] [address] | | | | | | | | | | + + +---- + + + + + | Specimen | + + | Blood | + + + + + + + | Performing | Address | City/State/Zipcode | Phone Number | | Organization | | | | + + + + + | [facility] | [address] | [place] [address] | [phone] | + + + + + POC Glucose (04/16/2019 8:57 PM PST) + + + + + + | Component | Value | Ref Range | Performed | Pathologist | | | | | At | Signature | + + + + + + | Glucose, | 96Comment: Testing | 65 - 99 mg/dL | [facility] | | | POC | performed at [facility];[address] | | LABORATORY | | | | [address];[place] | | | | | | [address] | | | | + + + + + + + + | Specimen | + + | | + + + + + + + | Performing | Address | City/State/Zipcode | Phone Number | | Organization | | | | + + + + + | [facility] | [address] | [place] [address] | [phone] | + + + + + POC Glucose (04/16/2019 4:39 PM PST) + + + + + + | Component | Value | Ref Range | Performed | Pathologist | | | | | At | Signature | + + + + + + | Glucose, | 192 (H)Comment: Testing | 65 - 99 mg/dL | [facility] | | | POC | performed at [facility];[address] | | LABORATORY | | | | [address];[place], [place] | | | | | | [address] | | | | + + + + + + + + | Specimen | + + | | + + + + + + + | Performing | Address | City/State/Zipcode | Phone Number | | Organization | | | | + + + + + | [facility] | [address] | [place] [address] | [phone] | + + + + + POC [...] | | | POC | performed at [facility];[address] | | LABORATORY | | | | [address];[place], [place] | | | | | | [address] | | | | + + + + + + + + | Specimen | + + | | + + + + + + + | Performing | Address | City/State/Zipcode | Phone Number | | Organization | | | | + + + + + | [facility] | [address] | [place] [address] | [phone] | + + + + + POC Glucose (04/16/2019 7:36 AM PST) + + + + + + | Component | Value | Ref Range | Performed | Pathologist | | | | | At | Signature | + + + + + + | Glucose, | 100 (H)Comment: Testing | 65 - 99 mg/dL | [facility] | | | POC | performed at [facility];[address] | | LABORATORY | | | | [address];[place], [place] | | | | | | [address] | | | | + + + + + + + + | Specimen | + + | | + + + + + + + | Performing | Address | City/State/Zipcode | Phone Number | | Organization | | | | + + + + + | [facility] | [address] | [place] [address] | [phone] | + + + + + CBC [...] | | | | | performed at [facility], [address] | | | | | | [facility], | | | | | | [place] [address] | | | | | |MICRO | | | | | |NORMAL PLT MORPH | | | | | |Testing performed at [facility], [address] [place] [address] | | | | | | | | | | + + +---- + + + + + | Specimen | + + | Blood | + + + + + + + | Performing | Address | City/State/Zipcode | Phone Number | | Organization | | | | + + + + + | [facility] | [address] | [place] [address] | [phone] | + + + + + Basic [...] | >60Comment: GFR <60: | >60 | [facility] | | | GFR | [...] | | | | | performed at [facility], [address] | | | | | | [facility], | | | | | | [place] [address] | | | | + + + + + + + + | Specimen | + + | Blood | + + + + + + + | Performing | Address | City/State/Zipcode | Phone Number | | Organization | | | | + + + + + | [facility] | [address] | [place] [address] | [phone] | + + + + + POC [...] | | | POC | performed at [facility];[address] | | LABORATORY | | | | [address];[place] | | | | | | [address] | | | | + + + + + + + + | Specimen | + + | | + + + + + + + | Performing | Address | City/State/Zipcode | Phone Number | | Organization | | | | + + + + + | [facility] | [address] | [place] [address] | [phone] | + + + + + POC Glucose (04/15/2019 4:51 PM PST) + + + + + + | Component | Value | Ref Range | Performed | Pathologist | | | | | At | Signature | + + + + + + | Glucose, | 239 (H)Comment: Testing | 65 - 99 mg/dL | [facility] | | | POC | performed at [facility];[address] | | LABORATORY | | | | [address];[place] | | | | | | [address] | | | | + + + + + + + + | Specimen | + + | | + + + + + + + | Performing | Address | City/State/Zipcode | Phone Number | | Organization | | | | + + + + + | [facility] | [address] | [place] [address] | [phone] | + + + + + POC [...] | | | POC | performed at [facility];[address] | | LABORATORY | | | | [address];[place], [place] | | | | | | [address] | | | | + + + + + + + + | Specimen | + + | | + + + + + + + | Performing | Address | City/State/Zipcode | Phone Number | | Organization | | | | + + + + + | [facility] | [address] | [place] [address] | [phone] | + + + + + Type [...] + + + | BB BAND | [id number] | | [facility] | | | | | | LABORATORY | | + + + + + + | UNIT # | [id number] | | [facility] | | | | [...] + + + | UNIT # | [id number] | | [facility] | | | | [...] + + + | UNIT # | [id number] | | [facility] | | | | [...] | | | RESULT | performed at [facility];[address] | | LABORATORY | | | | [address];[place], [place] | | | | | | [address] | | | | + + + + + + + + | Specimen | + + | Blood | + + + + + + + | Performing | Address | City/State/Zipcode | Phone Number | | Organization | | | | + + + + + | [facility] | [address] | [place] [address] | [phone] | + + + + + Red [...] | [facility] | | | COMMENT | [facility];[address] | | LABORATORY | | | | [address];[place] [address] | | | | + + + + + + + + | Specimen | + + | | + + + + + + + | Performing | Address | City/State/Zipcode | Phone Number | | Organization | | | | + + + + + | [facility] | [address] | [place] [address] | [phone] | + + + + + POC Glucose (04/15/2019 9:11 AM PST) + + + + + + | Component | Value | Ref Range | Performed | Pathologist | | | | | At | Signature | + + + + + + | Glucose, | 165 (H)Comment: Testing | 65 - 99 mg/dL | [facility] | | | POC | performed at [facility];[address] | | LABORATORY | | | | [address];[place] | | | | | | [address] | | | | + + + + + + + + | Specimen | + + | | + + + + + + + | Performing | Address | City/State/Zipcode | Phone Number | | Organization | | | | + + + + + | [facility] | [address] | [place] [address] | [phone] | + + + + + Vancomycin, [...] | | | | | performed at [facility];[address] | | | | | | [address];[place], [place] | | | | | | [address] | | | | + + + + + + + + | Specimen | + + | Blood | + + + + + + + | Performing | Address | City/State/Zipcode | Phone Number | | Organization | | | | + + + + + | [facility] | [address] | [place] [address] | [phone] | + + + + + CBC [...] | | | Estimate | performed at [facility];[address] | | LABORATORY | | | | [address];[place] | | | | | | [address] | | | | + + + + + + + + | Specimen | + + | Blood | + + + + + + + | Performing | Address | City/State/Zipcode | Phone Number | | Organization | | | | + + + + + | [facility] | [address] | [place] [address] | [phone] | + + + + + Basic [...] | | | | | | MDRD [facility] traceable | | | | | | equation.Testing | | | | | | performed at [facility];[address] | | | | | | [facility];[place], [place] | | | | | | [address] | | | | + + + + + + + + | Specimen | + + | Blood | + + + + + + + | Performing | Address | City/State/Zipcode | Phone Number | | Organization | | | | + + + + + | [facility] | [address] | [place] [address] | [phone] | + + + + + POC [...] | | | POC | performed at [facility];[address] | | LABORATORY | | | | [address];[place], [place] | | | | | | [address] | | | | + + + + + + + + | Specimen | + + | | + + + + + + + | Performing | Address | City/State/Zipcode | Phone Number | | Organization | | | | + + + + + | [facility] | [address] | [place] [address] | [phone] | + + + + + POC Glucose (04/14/2019 4:58 PM PST) + + + + + + | Component | Value | Ref Range | Performed | Pathologist | | | | | At | Signature | + + + + + + | Glucose, | 175 (H)Comment: Testing | 65 - 99 mg/dL | [facility] | | | POC | performed at [facility];[address] | | LABORATORY | | | | [address];[place], [place] | | | | | | [address] | | | | + + + + + + + + | Specimen | + + | | + + + + + + + | Performing | Address | City/State/Zipcode | Phone Number | | Organization | | | | + + + + + | [facility] | [address] | [place] [address] | [phone] | + + + + + POC Glucose (04/14/2019 11:43 AM PST) + + + + + + | Component | Value | Ref Range | Performed | Pathologist | | | | | At | Signature | + + + + + + | Glucose, | 153 (H)Comment: Testing | 65 - 99 mg/dL | [facility] | | | POC | performed at [facility];[address] | | LABORATORY | | | | [address];[place] | | | | | | [address] | | | | + + + + + + + + | Specimen | + + | | + + + + + + + | Performing | Address | City/State/Zipcode | Phone Number | | Organization | | | | + + + + + | [facility] | [address] | [place] [address] | [phone] | + + + + + ECHO [...] Testing | 65 - 99 mg/dL | [facility] | | | POC | performed at [facility];[address] | | LABORATORY | | | | [address];[place] | | | | | | [address] | | | | + + + + + + + + | Specimen | + + | | + + + + + + + | Performing | Address | City/State/Zipcode | Phone Number | | Organization | | | | + + + + + | [facility] | [address] | [place] [address] | [phone] | + + + + + B [...] | | LABORATORY | | | | [facility];[address] [facility] | | | | | | Blvd;[place] [address] | | | | + + + + + + + + | Specimen | + + | | + + + + + + + | Performing | Address | City/State/Zipcode | Phone Number | | Organization | | | | + + + + + | [facility] | [address] | [place] [address] | [phone] | + + + + + CBC [...] | | | Estimate | performed at [facility];[address] | | LABORATORY | | | | [address];[place] | | | | | | [address] | | | | + + + + + + + + | Specimen | + + | | + + + + + + + | Performing | Address | City/State/Zipcode | Phone Number | | Organization | | | | + + + + + | [facility] | [address] | [place] [address] | [phone] | + + + + + Troponin I (04/14/2019 6:29 AM PST) + + + + + + | Component | Value | Ref Range | Performed | Pathologist | | | | | At | Signature | + + + + + + | Troponin I | 0.014Comment: 0.04 | 0.00 - 0.04 | [facility] | | | | ng/mL [...] at | | | | | | [facility];[address] [place] [address] | | | | | | Bl;[place] [address] | | | | + + + + + + + + | Specimen | + + | Blood | + + + + + + + | Performing | Address | City/State/Zipcode | Phone Number | | Organization | | | | + + + + + | [facility] | [address] | [place] [address] | [phone] | + + + + + Basic [...] | | | | | performed at [facility];[address] | | | | | | [address];[place], [place] | | | | | | [address] | | | | + + + + + + + + | Specimen | + + | Blood | + + + + + + + | Performing | Address | City/State/Zipcode | Phone Number | | Organization | | | | + + + + + | [facility] | [address] | [place] [address] | [phone] | + + + + + Vancomycin Level (04/14/2019 4:53 AM PST) + + + + + + | Component | Value | Ref Range | Performed | Pathologist | | | | | At | Signature | + + + + + + | Vancomycin | 20.6Comment: Testing | ug/mL | [facility] | | | Random, | performed at [facility];[address] | | LABORATORY | | | Serum | [address];[place] | | | | | | [address] | | | | + + + + + + + + | Specimen | + + | Blood | + + + + + + + | Performing | Address | City/State/Zipcode | Phone Number | | Organization | | | | + + + + + | [facility] | [address] | [place] [address] | [phone] | + + + + + POC [...] | | | POC | performed at [facility];[address] | | LABORATORY | | | | [address];[place], [place] | | | | | | [address] | | | | + + + + + + + + | Specimen | + + | | + + + + + + + | Performing | Address | City/State/Zipcode | Phone Number | | Organization | | | | + + + + + | [facility] | [address] | [place] [address] | [phone] | + + + + + Troponin I (04/14/2019 1:19 AM PST) + + + + + + | Component | Value | Ref Range | Performed | Pathologist | | | | | At | Signature | + + + + + + | Troponin I | 0.015Comment: 0.04 | 0.00 - 0.04 | [facility] | | | | ng/mL [...] at | | | | | | [facility];[address] [facility] | | | | | | [facility];[place] [address] | | | | + + + + + + + + | Specimen | + + | Blood | + + + + + + + | Performing | Address | City/State/Zipcode | Phone Number | | Organization | | | | + + + + + | [facility] | [address] | [place] [address] | [phone] | + + + + + ECG [...] | | | POC | performed at [facility];[address] | | LABORATORY | | | | [address];[place], [place] | | | | | | [address] | | | | + + + + + + + + | Specimen | + + | | + + + + + + + | Performing | Address | City/State/Zipcode | Phone Number | | Organization | | | | + + + + + | [facility] | [address] | [place] [address] | [phone] | + + + + + POC Glucose (04/13/2019 4:19 PM PST) + + + + + + | Component | Value | Ref Range | Performed | Pathologist | | | | | At | Signature | + + + + + + | Glucose, | 109 (H)Comment: Testing | 65 - 99 mg/dL | [facility] | | | POC | performed at [facility];[address] | | LABORATORY | | | | [address];[place] | | | | | | [address] | | | | + + + + + + + + | Specimen | + + | | + + + + + + + | Performing | Address | City/State/Zipcode | Phone Number | | Organization | | | | + + + + + | [facility] | [address] | [place] [address] | [phone] | + + + + + XR [...] catheterization with right leg runoff4. 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 The patient was placed supine | | [...] sized to a 4 | | | [place] sheath. A Omni flush catheter was then [...] inserted over the catheter and the 4 [place]an sheath was | | | removed. A 7 Com[place]an destination sheath was then inserted over the [...] | | | POC | performed at [facility];[address] | | LABORATORY | | | | [address];[place] | | | | | | [address] | | | | + + + + + + + + | Specimen | + + | | + + + + + + + | Performing | Address | City/State/Zipcode | Phone Number | | Organization | | | | + + + + + | [facility] | [address] | [place] [address] | [phone] | + + + + + POC Glucose (04/13/2019 7:59 AM PST) + + + + + + | Component | Value | Ref Range | Performed | Pathologist | | | | | At | Signature | + + + + + + | Glucose, | 124 (H)Comment: Testing | 65 - 99 mg/dL | [facility] | | | POC | performed at [facility];[address] | | LABORATORY | | | | [address];[place] | | | | | | [address] | | | | + + + + + + + + | Specimen | + + | | + + + + + + + | Performing | Address | City/State/Zipcode | Phone Number | | Organization | | | | + + + + + | [facility] | [address] | [place] [address] | [phone] | + + + + + Basic [...] 8.2 (L) | 8.5 - 10.5 | [facility] | | | | | mg/dL | LABORATORY | | + + + + + + | Estimated | >60Comment: GFR <60: | >60 | [facility] | | | GFR | [...] Center, | | | | | | [place] [address] | | | | + + + + + + + + | Specimen | + + | Blood | + + + + + + + | Performing | Address | City/State/Zipcode | Phone Number | | Organization | | | | + + + + + | [facility] | [address] | [place] [address] | [phone] | + + + + + CBC [...] | | | | | performed at [facility], [address] | | | | | | [facility], | | | | | | [place] [address] | | | | | |MICRO | | | | | |NORMAL PLT MORPH | | | | | |Testing performed at [facility], [address] [facility], [place] [address] | | | | | | | | | | + + +---- + + + + + | Specimen | + + | Blood | + + + + + + + | Performing | Address | City/State/Zipcode | Phone Number | | Organization | | | | + + + + + | [facility] | [address] | [place] [address] | [phone] | + + + + + POC [...] | | | POC | performed at [facility];[address] | | LABORATORY | | | | [address];[place], [place] | | | | | | [address] | | | | + + + + + + + + | Specimen | + + | | + + + + + + + | Performing | Address | City/State/Zipcode | Phone Number | | Organization | | | | + + + + + | [facility] | [address] | [place] [address] | [phone] | + + + + + POC Glucose (04/12/2019 9:14 PM PST) + + + + + + | Component | Value | Ref Range | Performed | Pathologist | | | | | At | Signature | + + + + + + | Glucose, | 183 (H)Comment: Testing | 65 - 99 mg/dL | [facility] | | | POC | performed at [facility];[address] | | LABORATORY | | | | [address];[place] | | | | | | [address] | | | | + + + + + + + + | Specimen | + + | | + + + + + + + | Performing | Address | City/State/Zipcode | Phone Number | | Organization | | | | + + + + + | [facility] | [address] | [place] [address] | [phone] | + + + + + POC Glucose (04/12/2019 4:28 PM PST) + + + + + + | Component | Value | Ref Range | Performed | Pathologist | | | | | At | Signature | + + + + + + | Glucose, | 211 (H)Comment: Testing | 65 - 99 mg/dL | [facility] | | | POC | performed at [facility];[address] | | LABORATORY | | | | [address];[place] | | | | | | [address] | | | | + + + + + + + + | Specimen | + + | | + + + + + + + | Performing | Address | City/State/Zipcode | Phone Number | | Organization | | | | + + + + + | [facility] | [address] | [place] [address] | [phone] | + + + + + POC [...] | | | POC | performed at [facility];[address] | | LABORATORY | | | | [address];[place] | | | | | | [address] | | | | + + + + + + + + | Specimen | + + | | + + + + + + + | Performing | Address | City/State/Zipcode | Phone Number | | Organization | | | | + + + + + | [facility] | [address] | [place] [address] | [phone] | + + + + + POC [...] | | | POC | performed at [facility];[address] | | LABORATORY | | | | [address];[place] | | | | | | [address] | | | | + + + + + + + + | Specimen | + + | | + + + + + + + | Performing | Address | City/State/Zipcode | Phone Number | | Organization | | | | + + + + + | [facility] | [address] [facility] | [place] [address] | [phone] | + + + + + Basic [...] | | | | | performed at [facility], [address] | | | | | | [facility], | | | | | | [place] [address] | | | | + + + + + + + + | Specimen | + + | Blood | + + + + + + + | Performing | Address | City/State/Zipcode | Phone Number | | Organization | | | | + + + + + | [facility] | [address] | [place] [address] | [phone] | + + + + + CBC [...] | | | | | performed at [facility], [address] | | | | | | [facility], | | | | | | [place] [address] | | | | | |MICRO | | | | | |NORMAL PLT MORPH | | | | | |Testing performed at [facility], [address] [facility], [place] [address] | | | | | | | | | | + + +---- + + + + + | Specimen | + + | Blood | + + + + + + + | Performing | Address | City/State/Zipcode | Phone Number | | Organization | | | | + + + + + | [facility] | [address] | [place] [address] | [phone] | + + + + + POC Glucose (04/11/2019 9:20 PM PST) + + + + + + | Component | Value | Ref Range | Performed | Pathologist | | | | | At | Signature | + + + + + + | Glucose, | 199 (H)Comment: Testing | 65 - 99 mg/dL | [facility] | | | POC | performed at [facility];[address] | | LABORATORY | | | | [address];[place] | | | | | | [address] | | | | + + + + + + + + | Specimen | + + | | + + + + + + + | Performing | Address | City/State/Zipcode | Phone Number | | Organization | | | | + + + + + | [facility] | [address] | [place] [address] | [phone] | + + + + + POC [...] | | | POC | performed at [facility];[address] | | LABORATORY | | | | [address];[place], [place] | | | | | | [address] | | | | + + + + + + + + | Specimen | + + | | + + + + + + + | Performing | Address | City/State/Zipcode | Phone Number | | Organization | | | | + + + + + | [facility] | [address] | [place] [address] | [phone] | + + + + + POC [...] | | | POC | performed at [facility];[address] | | LABORATORY | | | | [address];[place], [place] | | | | | | [address] | | | | + + + + + + + + | Specimen | + + | | + + + + + + + | Performing | Address | City/State/Zipcode | Phone Number | | Organization | | | | + + + + + | [facility] | [address] | [place] [address] | [phone] | + + + + + IR [...] x 150 mm | | | angioplasty [id number]. Left SFA stenting using 7 x 120 mm | | | self-expanding stent SURGEON: Simba Cheng MD ADJUSTER PIANO ACTION: None ANESTHESIA: | | | Moderate sedation [...] | | identified and brought to the [facility]. The patient was placed supine | | [...] sized to a 4 | | | [place] sheath. A Omni flush catheter was then [...] inserted over the catheter and the 4 [place] sheath was | | | removed. A 7 [place] destination sheath was then inserted over the [...] using a | | | Glidewire and [place] catheter. A 0.009 wire was then passed [...] crossed using a | | |Glidewire and [place] catheter. A 0.009 wire was then passed [...] Testing | 65 - 99 mg/dL | [facility] | | | POC | performed at [facility];[address] | | LABORATORY | | | | [address];[place] | | | | | | [address] | | | | + + + + + + + + | Specimen | + + | | + + + + + + + | Performing | Address | City/State/Zipcode | Phone Number | | Organization | | | | + + + + + | [facility] | [address] | [place] [address] | [phone] | + + + + + B Type Natriuretic Peptide (04/11/2019 5:48 AM PST) + + + + + + | Component | Value | Ref Range | Performed | Pathologist | | | | | At | Signature | + + + + + + | BNP | 220.45 (H)Comment: | 0 - 100 pg/mL | [facility] | | | | Testing performed at | | LABORATORY | | | | [facility];[address];[place] [address] | | | | + + + + + + + + | Specimen | + + | Blood | + + + + + + + | Performing | Address | City/State/Zipcode | Phone Number | | Organization | | | | + + + + + | [facility] | [address] | [place] [address] | [phone] | + + + + + Basic [...] | >60Comment: GFR <60: | >60 | [facility] | | | GFR | [...] | | | | | | MDRD IDNH traceable | | | | | | equation.Testing | | | | | | performed at [facility], [address] | | | | | [facility], | | | | | | [place] [address] | | | | + + + + + + + + | Specimen | + + | Blood | + + + + + + + | Performing | Address | City/State/Zipcode | Phone Number | | Organization | | | | + + + + + | [facility] | [address] | [place] [address] | [phone] | + + + + + CBC [...] | | | | | | at [facility], [address] | | | | | | [address], | | | | | | [place] [address] | | | | | |Testing performed at [facility], [address] [place] [address] | | | | | | | | | | + + +---- + + + + + | Specimen | + + | Blood | + + + + + + + | Performing | Address | City/State/Zipcode | Phone Number | | Organization | | | | + + + + + | [facility] | [address] | [place] [address] | [phone] | + + + + + POC Glucose (04/10/2019 9:22 PM PST) + + + + + + | Component | Value | Ref Range | Performed | Pathologist | | | | | At | Signature | + + + + + + | Glucose, | 127 (H)Comment: Testing | 65 - 99 mg/dL | [facility] | | | POC | performed at [facility];[address] | | LABORATORY | | | | [address];[place] | | | | | | [address] | | | | + + + + + + + + | Specimen | + + | | + + + + + + + | Performing | Address | City/State/Zipcode | Phone Number | | Organization | | | | + + + + + | [facility] | [address] | [place] [address] | [phone] | + + + + + POC [...] | | | POC | performed at [facility];[address] | | LABORATORY | | | | [address]am[address];[place] | | | | | | [address] | | | | + + + + + + + + | Specimen | + + | | + + + + + + + | Performing | Address | City/State/Zipcode | Phone Number | | Organization | | | | + + + + + | [facility] | [address] | [place] [address] | [phone] | + + + + + [place] [...] | | | POC | performed at [facility];[address] | | LABORATORY | | | | [address];[place] | | | | | | [address] | | | | + + + + + + + + | Specimen | + + | | + + + + + + + | Performing | Address | City/State/Zipcode | Phone Number | | Organization | | | | + + + + + | [facility] | [address] | [place] [address] | [phone] | + + + + + CBC [...] [facility] | | | | performed at [facility], [address] | | LABORATORY | | | | [address], | | | | | | [place] [address] | | | | + + + + + + + + | Specimen | + + | Blood | + + + + + + + | Performing | Address | City/State/Zipcode | Phone Number | | Organization | | | | + + + + + | [facility] | [address] | [place] [address] | [phone] | + + + + + POC [...] | | | POC | performed at [facility];[address] | | LABORATORY | | | | [address];[place] | | | | | | [address] | | | | + + + + + + + + | Specimen | + + | | + + + + + + + | Performing | Address | City/State/Zipcode | Phone Number | | Organization | | | | + + + + + | [facility] | [address] | [place] [address] | [phone] | + + + + + POC Glucose (04/09/2019 5:06 PM PST) + + + + + + | Component | Value | Ref Range | Performed | Pathologist | | | | | At | Signature | + + + + + + | Glucose, | 169 (H)Comment: Testing | 65 - 99 mg/dL | [facility] | | | POC | performed at [facility];[address] | | LABORATORY | | | | [address]illo;[place] | | | | | | [address] | | | | + + + + + + + + | Specimen | + + | | + + + + + + + | Performing | Address | City/State/Zipcode | Phone Number | | Organization | | | | + + + + + | [facility] | [address] | [place] [address] | [phone] | + + + + + POC [...] | | | POC | performed at [facility];[address] | | LABORATORY | | | | [address];[place] | | | | | | [address] | | | | + + + + + + + + | Specimen | + + | | + + + + + + + | Performing | Address | City/State/Zipcode | Phone Number | | Organization | | | | + + + + + | [facility] | [address] | [place] [address] | [phone] | + + + + + XR [...] | | | Urine | performed at [facility], [address] | | LABORATORY | | | | [address], | | | | | | [place] [address] | | | | + + + + + + + + | Specimen | + + | | + + + + + + + | Performing | Address | City/State/Zipcode | Phone Number | | Organization | | | | + + + + + | [facility] | [address] | [place] [address] | [phone] | + + + + + Urinalysis, [...] - 1.030 | [facility] | | | [place], | | | LABORATORY | | | [...] | + + + + + | [facility] | [address] | [place] [address] | [phone] | + + + + + Sedimentation Rate (04/09/2019 6:16 AM PST) + + + + + + | Component | Value | Ref Range | Performed | Pathologist | | | | | At | Signature | + + + + + + | ESR | 91 (H)Comment: Testing | 0 - 20 mm/Hr | [facility] | | | | performed at [facility], [address] | | LABORATORY | | | | [address], | | | | | | [place] [address] | | | | + + + + + + + + | Specimen | + + | Blood | + + + + + + + | Performing | Address | City/State/Zipcode | Phone Number | | Organization | | | | + + + + + | [facility] | [address] | [place] [address] | [phone] | + + + + + CBC [...] [facility] | | | | performed at [facility], [address] | | LABORATORY | | | | [facility], | | | | | | [place] [address] | | | | + + + + + + + + | Specimen | + + | Blood | + + + + + + + | Performing | Address | City/State/Zipcode | Phone Number | | Organization | | | | + + + + + | [facility] | [address] | [place] [address] | [phone] | + + + + + Comprehensive [...] | | | | | | MDRD IDNH traceable | | | | | | equation.Testing | | | | | | performed at [facility], [address] | | | | | | [facility], | | | | | | [place] [address] | | | | + + + + + + + + | Specimen | + + | Blood | + + + + + + + | Performing | Address | City/State/Zipcode | Phone Number | | Organization | | | | + + + + + | [facility] | [address] | [place] [address] | [phone] | + + + + + POC Glucose (04/08/2019 10:09 PM PST) + + + + + + | Component | Value | Ref Range | Performed | Pathologist | | | | | At | Signature | + + + + + + | Glucose, | 168 (H)Comment: Testing | 65 - 99 mg/dL | [facility] | | | POC | performed at [facility];[address] | | LABORATORY | | | | [address];[place] | | | | | | [address] | | | | + + + + + + + + | Specimen | + + | | + + + + + + + | Performing | Address | City/State/Zipcode | Phone Number | | Organization | | | | + + + + + | [facility] | [address] | [place] [address] | [phone] | + + + + + Fecal Hemoglobin (04/08/2019 7:27 PM PST) + + + + + + | Component | Value | Ref Range | Performed | Pathologist | | | | | At | Signature | + + + + + + | FECAL | NEGATIVEComment: Testing | NEG | [facility] | | | OCCULT BLD | performed at [facility];[address] | | LABORATORY | | | | [address];[place], [place] | | | | | | [address] | | | | + + + + + + + + | Specimen | + + | Stool - Stool | | specimen (specimen) | + + + + + + + | Performing | Address | City/State/Zipcode | Phone Number | | Organization | | | | + + + + + | [facility] | [address] | [place] [address] | [phone] | + + + + + POC [...] | | | POC | performed at [facility];[address] | | LABORATORY | | | | [address]am[address];[place] | | | | | | [address] | | | | + + + + + + + + | Specimen | + + | | + + + + + + + | Performing | Address | City/State/Zipcode | Phone Number | | Organization | | | | + + + + + | [facility] | [address] | [place] [address] | [phone] | + + + + + XR [...] | | | POC | performed at [facility];[address] | | LABORATORY | | | | [address];[place] | | | | | | [address] | | | | + + + + + + + + | Specimen | + + | | + + + + + + + | Performing | Address | City/State/Zipcode | Phone Number | | Organization | | | | + + + + + | [facility] | [address] | [place] [address] | [phone] | + + + + + XR [...] Testing | 65 - 99 mg/dL | [facility] | | | POC | performed at [facility];[address] | | LABORATORY | | | | [address];[place] | | | | | | [address] | | | | + + + + + + + + | Specimen | + + | | + + + + + + + | Performing | Address | City/State/Zipcode | Phone Number | | Organization | | | | + + + + + | [facility] | [address] | [place] [address] | [phone] | + + + + + B [...] [address] | | | | | | [address];[place] [address] | | | | + + + + + + + + | Specimen | + + | Blood | + + + + + + + | Performing | Address | City/State/Zipcode | Phone Number | | Organization | | | | + + + + + | [facility] | [address] | [place] [address] | [phone] | + + + + + CBC [...] | | | | | [place] [address] | | | | + + + + + + + + | Specimen | + + | Blood | + + + + + + + | Performing | Address | City/State/Zipcode | Phone Number | | Organization | | | | + + + + + | [facility] | [address] | [place] [address] | [phone] | + + + + + Comprehensive [...] | | | | | performed at [facility], [address] | | | | | | [facility], | | | | | | [place] [address] | | | | + + + + + + + + | Specimen | + + | Blood | + + + + + + + | Performing | Address | City/State/Zipcode | Phone Number | | Organization | | | | + + + + + | [facility] | [address] | [place] [address] | [phone] | + + + + + POC [...] | | | POC | performed at [facility];[address] | | LABORATORY | | | | [address];[place] | | | | | | [address] | | | | + + + + + + + + | Specimen | + + | | + + + + + + + | Performing | Address | City/State/Zipcode | Phone Number | | Organization | | | | + + + + + | [facility] | [address] | [place] [address] | [phone] | + + + + + POC [...] | | | POC | performed at [facility];[address] | | LABORATORY | | | | [address];[place] | | | | | | [address] | | | | + + + + + + + + | Specimen | + + | | + + + + + + + | Performing | Address | City/State/Zipcode | Phone Number | | Organization | | | | + + + + + | [facility] | [address] | [place] [address] | [phone] | + + + + + POC Glucose (04/07/2019 12:40 PM PST) + + + + + + | Component | Value | Ref Range | Performed | Pathologist | | | | | At | Signature | + + + + + + | Glucose, | 252 (H)Comment: Testing | 65 - 99 mg/dL | [facility] | | | POC | performed at [facility];[address] | | LABORATORY | | | | [address];[place] | | | | | | [address] | | | | + + + + + + + + | Specimen | + + | | + + + + + + + | Performing | Address | City/State/Zipcode | Phone Number | | Organization | | | | + + + + + | [facility] | [address] | [place] [address] | [phone] | + + + + + XR [...] | | | POC | performed at [facility];[address] | | LABORATORY | | | | [address];[place] | | | | | | [address] | | | | + + + + + + + + | Specimen | + + | | + + + + + + + | Performing | Address | City/State/Zipcode | Phone Number | | Organization | | | | + + + + + | [facility] | [address] | [place] [address] | [phone] | + + + + + Magnesium (04/07/2019 5:02 AM PST) + + + + + + | Component | Value | Ref Range | Performed | Pathologist | | | | | At | Signature | + + + + + + | Magnesium | 2.1Comment: Testing | 1.7 - 2.4 mg/dL | [facility] | | | | performed at [facility], [address] | | LABORATORY | | | | [address], | | | | | | [place] [address] | | | | + + + + + + + + | Specimen | + + | Blood | + + + + + + + | Performing | Address | City/State/Zipcode | Phone Number | | Organization | | | | + + + + + | [facility] | [address] | [place] [address] | [phone] | + + + + + CBC [...] [facility] | | | | performed at [facility];[address] | | LABORATORY | | | | [address];[place], [place] | | | | | | [address] | | | | + + + + + + + + | Specimen | + + | Blood | + + + + + + + | Performing | Address | City/State/Zipcode | Phone Number | | Organization | | | | + + + + + | [facility] | [address] | [place] [address] | [phone] | + + + + + Comprehensive [...] | >60Comment: GFR <60: | >60 | [facility] | | | GFR | [...] | | | | | | MDRD IDNH traceable | | | | | | equation.Testing | | | | | | performed at [facility], [address] | | | | | | [facility], | | | | | | [place] [address] | | | | + + + + + + + + | Specimen | + + | Blood | + + + + + + + | Performing | Address | City/State/Zipcode | Phone Number | | Organization | | | | + + + + + | [facility] | [address] | [place] [address] | [phone] | + + + + + Iron, Total (04/07/2019 5:02 AM PST) + + + + + + | Component | Value | Ref Range | Performed | Pathologist | | | | | At | Signature | + + + + + + | Iron | 23 (L)Comment: Testing | 45 - 190 ug/dL | [facility] | | | | performed at [facility], [address] | | LABORATORY | | | | [address], | | | | | | [place] [address] | | | | + + + + + + + + | Specimen | + + | Blood | + + + + + + + | Performing | Address | City/State/Zipcode | Phone Number | | Organization | | | | + + + + + | [facility] | [address] | [place] [address] | [phone] | + + + + + POC [...] | | | POC | performed at [facility];[address] | | LABORATORY | | | | [address];[place] | | | | | | [address] | | | | + + + + + + + + | Specimen | + + | | + + + + + + + | Performing | Address | City/State/Zipcode | Phone Number | | Organization | | | | + + + + + | [facility] | [address] | [place] [address] | [phone] | + + + + + POC [...] | | | POC | performed at [facility];[address] | | LABORATORY | | | | [address];[place], [place] | | | | | | [address] | | | | + + + + + + + + | Specimen | + + | | + + + + + + + | Performing | Address | City/State/Zipcode | Phone Number | | Organization | | | | + + + + + | [facility] | [address] | [place] [address] | [phone] | + + + + + Culture, [...] | [facility] | | | Requests | [facility];[address] [facility] | | LABORATORY | | | | [address];[place] [address] | | | | + + + + + + | RESULT | 1+NORMAL SKIN CELSA | | [facility] | | | | ISOLATED | | LABORATORY | | | | | | | | + + + + + + | RESULT | NO FURTHER WORKUP | | [facility] | | | | | | LABORATORY | | + + + + + + | RESULT | Testing performed at | | [facility] | | | | TCL, [address] [facility] | | LABORATORY | | | | [place], [place] | | | | | | [id number]: Testing | | | | | | performed at [facility], [address] | | | | | | [address] [place], [place] | | | | | | [address] | | | | + + + + + + + + | Specimen | + + | Body Fluid - Entire | | heel (body | | structure) | + + + + + + + | Performing | Address | City/State/Zipcode | Phone Number | | Organization | | | | + + + + + | [facility] | [address] | [place] [address] | [phone] | + + + + + Culture, [...] | [facility] | | | Requests | [facility];[address] [place] [address] | | LABORATORY | | | | Blvd;[place] [address] | | | | + + + [...] Comment: Testing | | | performed at [facility], | | | [address], | | | [place] [address] | +---+ + + + + + + | Performing | Address | City/State/Zipcode | Phone Number | | Organization | | | | + + + + + | [facility] | [address] | [place] [address] | [phone] | + + + + + Ferritin (04/06/2019 2:30 PM PST) + + + + + + | Component | Value | Ref Range | Performed | Pathologist | | | | | At | Signature | + + + + + + | Ferritin | 62Comment: Testing | 11 - 450 ng/mL | [facility] | | | | performed at [facility], [address] | | LABORATORY | | | | [address], | | | | | | [place] [address] | | | | + + + + + + + + | Specimen | + + | Blood | + + + + + + + | Performing | Address | City/State/Zipcode | Phone Number | | Organization | | | | + + + + + | [facility] | [address] | [place] [address] | [phone] | + + + + + Vitamin [...] [facility] | | | | performed at [facility], [address] | | LABORATORY | | | | [address], | | | | | | [place] [address] | | | | + + + + + + + + | Specimen | + + | Blood | + + + + + + + | Performing | Address | City/State/Zipcode | Phone Number | | Organization | | | | + + + + + | [facility] | [address] | [place] [address] | [phone] | + + + + + Troponin [...] at | | | | | | [facility];[address] [facility] | | | | | | [facility];[place] [address] | | | | + + + + + + + + | Specimen | + + | Blood | + + + + + + + | Performing | Address | City/State/Zipcode | Phone Number | | Organization | | | | + + + + + | [facility] | [address] | [place] [address] | [phone] | + + + + + POC Glucose (04/06/2019 11:28 AM PST) + + + + + + | Component | Value | Ref Range | Performed | Pathologist | | | | | At | Signature | + + + + + + | Glucose, | 175 (H)Comment: Testing | 65 - 99 mg/dL | [facility] | | | POC | performed at [facility];[address] | | LABORATORY | | | | [address];[place] | | | | | | [address] | | | | + + + + + + + + | Specimen | + + | | + + + + + + + | Performing | Address | City/State/Zipcode | Phone Number | | Organization | | | | + + + + + | [facility] | [address] | [place] [address] | [phone] | + + + + + VAS [...] | | | POC | performed at [facility];[address] | | LABORATORY | | | | [address];[place] | | | | | | [address] | | | | + + + + + + + + | Specimen | + + | | + + + + + + + | Performing | Address | City/State/Zipcode | Phone Number | | Organization | | | | + + + + + | [facility] | [address] | [place] [address] | [phone] | + + + + + Troponin I (04/06/2019 8:31 AM PST) + + + + + + | Component | Value | Ref Range | Performed | Pathologist | | | | | At | Signature | + + + + + + | Troponin I | 0.19 (H)Comment: 0.04 | 0.00 - 0.04 | [facility] | | | | ng/mL [...] at | | | | | | [facility];[address] [place] [address] | | | | | | [facility];[place] [address] | | | | + + + + + + + + | Specimen | + + | Blood | + + + + + + + | Performing | Address | City/State/Zipcode | Phone Number | | Organization | | | | + + + + + | [facility] | [address] | [place] [address] | [phone] | + + + + + XR [...] Special | Testing performed at | | [facility] | | | Requests | [facility];[address] | | LABORATORY | | | | [address];[place] [address] | | | | + + + + + + | RESULT | NO GROWTH 6 DAYS | | [facility] | | | | | | LABORATORY | | + + + + + + | RESULT | Testing performed at | | [facility] | | | | [facility], [address] [facility] | | LABORATORY | | | | [place], [place] | | | | | | [id number]: Testing | | | | | | performed at [facility], [address] | | | | | [address] [place], [place], [place] | | | | | | [address] | | | | + + + [...] [facility] | [address] | [place] [address] | [phone] | + + + + + Culture, [...] Special | Testing performed at | | [facility] | | | Requests | [facility];[address] | | LABORATORY | | | | [address];[place] [address] | | | | + + + + + + | RESULT | NO GROWTH 6 DAYS | | [facility] | | | | | | LABORATORY | | + + + + + + | RESULT | Testing performed at | | [facility] | | | | T[facility], [address] [facility] | | LABORATORY | | | | [place], [place] | | | | | | [id number]: Testing | | | | | | performed at [facility], [facility] | | | | | | [address] [place], [place] | | | | | | [address] | | | | + + + + + + + + | Specimen | + + | Blood - Peripheral | | blood specimen | | (specimen) | + + + + + + + | Performing | Address | City/State/Zipcode | Phone Number | | Organization | | | | + + + + + | [facility] | [address] | [place] [address] | [phone] | + + + + + B [...] | | LABORATORY | | | | [facility];[address] | | | | [address];[place] [address] | | | | + + + + + + + + | Specimen | + + | | + + + + + + + | Performing | Address | City/State/Zipcode | Phone Number | | Organization | | | | + + + + + | [facility] | [address] | [place] [address] | [phone] | + + + + + Lipid [...] | 13Comment: Testing | <100 mg/dL | [facility] | | | Calculated | performed at [facility], [address] | | LABORATORY | | | | [address], | | | | | | [place] [address] | | | | + + + + + + + + | Specimen | + + | Blood | + + + + + + + | Performing | Address | City/State/Zipcode | Phone Number | | Organization | | | | + + + + + | [facility] | [address] | [place] [address] | [phone] | + + + + + Hemoglobin A1C (04/06/2019 2:48 AM PST) + + + + + + | Component | Value | Ref Range | Performed | Pathologist | | | | | At | Signature | + + + + + + | Hemoglobin | 7.8 (H)Comment: HbA1c | 4.0 - 6.0 % | [facility] | | | A1c | [...] | 177 (H)Comment: | <154 mg/dL | [facility] | | | Average | Estimated Average | | LABORATORY | | | Glucose | Glucose calculated from | | | | | | hemoglobin A1c by use of | | | | | | the ADArecommended | | | | | | formula.Testing | | | | | | performed at [facility], [address] | | | | | [address], | | | | | | [place] [address] | | | | + + + + + + + + | Specimen | + + | Blood | + + + + + + + | Performing | Address | City/State/Zipcode | Phone Number | | Organization | | | | + + + + + | [facility] | [address] | [place] [address] | [phone] | + + + + + Magnesium (04/06/2019 2:48 AM PST) + + + + + + | Component | Value | Ref Range | Performed | Pathologist | | | | | At | Signature | + + + + + + | Magnesium | 1.4 (L)Comment: Testing | 1.7 - 2.4 mg/dL | [facility] | | | | performed at [facility], [address] | | LABORATORY | | | | [address], | | | | | | [place] [address] | | | | + + + + + + + + | Specimen | + + | Blood | + + + + + + + | Performing | Address | City/State/Zipcode | Phone Number | | Organization | | | | + + + + + | [facility] | [address] | [place] [address] | [phone] | + + + + + Comprehensive [...] | | | | | performed at [facility], [address] | | | | | | [facility], | | | | | | [place] [address] | | | | + + + + + + + + | Specimen | + + | Blood | + + + + + + + | Performing | Address | City/State/Zipcode | Phone Number | | Organization | | | | + + + + + | [facility] | [address] | [place] [address] | [phone] | + + + + + CBC [...] | | | | | | at [facility];[address] | | | [address];[place] [address] | | | | | |NORMAL PLT MORPH | | | | | |Testing performed at [facility];[address];[place] [address] | | | | | | | | | | + + + + + + + + | Specimen | + + | Blood | + + + + + + + | Performing | Address | City/State/Zipcode | Phone Number | | Organization | | | | + + + + + | [facility] | [address] | [place] [address] | [phone] | + + + + + Ev [...] | | | | | performed at [facility] | | | | | | [address];[place], [place] | | | | | | [address] | | | | + + + + + + + + | Specimen | + + | Blood | + + + + + + + | Performing | Address | City/State/Zipcode | Phone Number | | Organization | | | | + + + + + | [facility] | [address] | [place] [address] | [phone] | + + + + + PTT (04/06/2019 2:48 AM PST) + + + + + + | Component | Value | Ref Range | Performed | Pathologist | | | | | At | Signature | + + + + + + | PTT | 34 (H)Comment: Testing | 23 - 32 seconds | IDA | | | | performed at [facility];[address] | | LABORATORY | | | | [address];[place] | | | | | | [address] | | | | + + + + + + + + | Specimen | + + | Blood | + + + + + + + | Performing | Address | City/State/Zipcode | Phone Number | | Organization | | | | + + + + + | [facility] | [address] | [place] [address] | [phone] | + + + + + Troponin [...] at | | | | | | [facility];[address] [place] [address] | | | | | | [facility];[place] [address] | | | | + + + + + + + + | Specimen | + + | Blood | + + + + + + + | Performing | Address | City/State/Zipcode | Phone Number | | Organization | | | | + + + + + | [facility] | [address] | [place] [address] | [phone] | + + + + + documented [...] | | | | | dose on [facility] 04/12/19 at 2100 | | | [...]
--- OUTSIDE RECORDS SUMMARY | ~2019-08-08 | XMS | Encounter Summary ---
Demographics + + + | Address | [address] | | | [place] [address] | + + + | Home Phone | | + + + | Preferred Language | Unknown | + + + | Marital Status | | + + + | Evangelical Affiliation | 1076 | + + + | Race | Unknown | + + + | Ethnic Group | Unknown | + + + Author + + + | Author | [facility] | | | and [place] | + + + | Organization | [facility] | | | and [place] | + + + | Address | Unknown | + + + | Phone | Unavailable | + + + Support + + + + + | Name | Relationship | Address | Phone | + + + + + | Jessica Amezquita | ECON | [address] | | | | | [place] | | | | | [address] | | + + + + + | Bel Solis | ECON | Unknown | | + + + + + Care Team Providers + +------+ + | Care Funeral Driver Name | Role | Phone | + +------+ + PCP | Unavailable | + +------+ + Encounter Details +--------+ + + + + | Date | Type | Department | Care Team | Description | +--------+ + + + + | 04/21/ | Hospital | [facility] | Christina Da Silva | | | 2012 | Encounter | [facility] | MD Sunshine [address] | | | | | [facility] [address] | [facility], | | | | | [place], [place] | [place] [address] | | | | | [address] | [phone] | | | | | [phone] | | | | | | | Cody Goodwin | | | | | | MD Evelia [address] | | | | | | [place], [place] | | | | | | [address] | | | | | | [phone] | | | | | | | [...] Performed At | + + + | [facility] | [facility] | | Department [address] [facility], [place] | [facility] | | [ rep [address]] [ rep [facility] | | st zip] Signed | - IMAGING | | | | | Patient Name: BIAREAGAN Physician: | | | BILL.[birth year] : 1945 Age: 67 Sex: M Unit #: [id number] | | | Exam Date: 04/21/12 Location: ER | | | Report #: [id number] Page: | | | %(RAD)RES..mtdd.print.filter("pg") of %(RAD) | | | RES..mtdd.print.filter("tpg") | | | | | | Accession Number: [id number] | | | ABDOMEN ONE VIEW 04/22/2012 [...] Transcribed Date/Time: | | | 04/22/2012 18:46 B2B Appointment Setter: | | | <<Signature on File>> | | | Rico | | | MD Jack04/23/12 0933 <Electronically signed by Rico Santiago MD> | | | Rico Santiago MD 04/22/12 1424 B2B Appointment Setter: Abhishek | | | Xspdqptmnuprv14/02/13 1846 Cody Goodwin MD | | | | | + + + + + + + + | Performing | Address | City/State[facility] | Phone Number | | Organization | | | | + + + + + | [facility] | [address] | [place], [place] | [phone] | | [facility] | | [address] | | | - IMAGING | | | | + + + + + CT Abdomen Pelvis w Contrast (04/22/2012 11:43 AM PST) + + | Specimen | + + | | + + + + + | Narrative | Performed At | + + + | [facility] | [place] | | Department [address], [place] | [facility] | | [ rep [address]] [ rep ct [facility] | | st zip] Signed | - IMAGING | | | | | Patient Name: REAGAN AMEZQUITA Physician: | | | BILL. : 1945 Age: 67 Sex: M Unit #: [id number] | | | Exam Date: 04/21/12 Location: ER | | | Report #: [id number] Page: | | | %(RAD)RES..mtdd.print.filter("pg") of %(RAD) | | | RES..mtdd.print.filter("tpg") | | | | | | Accession Number: [id number] | | | CT SCAN OF THE [...] | | PRELIMINARY REPORT WAS SENT BY [employer] AT 10:02 P.M. ON | | | 04/21/12. Dictated Date/Time: 04/22/2012 11:43 | | | Transcribed Date/Time: 04/22/2012 15:29 B2B Appointment Setter: | | | <<Signature on File>> | | | Rico | | | MD Jack04/23/12 0933 <Electronically signed by iRco Santiago MD> | | | Rico Santiago MD 04/22/12 1143 B2B Appointment Setter: Abhishek | | | Rrvfwakriehdi42/02/13 1529 Cody Goodwin MD | | | | | + + + + + + + + | Performing | Address | City/State/Zipcode | Phone Number | | Organization | | | | + + + + + | [facility] | [address] | [place] | [phone] | | [facility] | | [address] | | | - IMAGING | | [...] + | [facility] | [address] | [place] | [phone] | | [facility] | | [address] | | | - LABORATORY | | | | + + + + + | [facility] | [address] | [place], [place] | | | [facility] | | [address] | | | - LABORATORY | [...] + | [facility] | [address] | [place] | [phone] | | [facility] | | Pending [facility] to [facility] | | | - LABORATORY | | | | + + + + + | [facility] | [address] | [place], [place] | | | [facility] | | [address] [place] [address] | | | - LABORATORY | | | | + + + + + documented in this encounter Visit Diagnoses Not on filedocumented in this encounter
--- OUTSIDE RECORDS SUMMARY | ~2019-08-08 | XMS | Encounter Summary ---
Demographics + + + | Address | [address] | | | [place] [address] | + + + | Home Phone [...] | Organization | [facility] | | | and [place] | + + + | Address | Unknown | + + + | Phone | Unavailable | + + + Support + + + + + | Name | Relationship | Address | Phone | + + + + + | Jessica Shepard | ECON | [address] | | | | | [place] | | | | | [address] | | + + + + + | Bel Solis | ECON | Unknown | | + + + + + Care Team Providers + +------+ + | Care Fish Inspector Name | Role | Phone | + +------+ + | Dian Lr NP | PCP | | + +------+ + Encounter Details +--------+ + + + + | Date | Type | Department | Care Team | Description | +--------+ + + + + | 10/16/ | Orders Only | [facility] | Provider, | Other acute | | 2019 | | SYSTEM GENERIC OP | MD [address] | osteomyelitis, right | | | | CONVERSION [address] | [address] | ankle and foot | | | | [address] [place], [place] | [place] [address] | ([facility]) | | | | [address] | | | | | | [phone] | | | +--------+ + + + [...]
--- OUTSIDE RECORDS SUMMARY | ~2019-08-08 | XMS | Encounter Summary ---
Demographics + + + | Address | [address] | | | [place] [address] | + + + | Home Phone | | + + + | Preferred Language | Unknown | + + + | Marital Status | | + + + | Holiness Affiliation | 1076 | + + + | Race | Unknown | + + + | Ethnic Group | Unknown | + + + Author + + + | Author | [facility] | | | and [place] | + + + | Organization | [facility] | | | and [place] | + + + | Address | Unknown | + + + | Phone | Unavailable | + + + Support + + + + + | Name | Relationship | Address | Phone | + + + + + | Jessica Shepard | ECON | [address] | | | | | [place] | | | | | [address] | | + + + + + | Bel Solis | ECON | Unknown | | + + + + + Care Team Providers + +------+ + | Care Alum Plant Supervisor Name | Role | Phone | + +------+ + | Jamar Manuel MD | PCP | | + +------+ + Encounter Details +--------+ + + + + | Date | Type | Department | Care Team | Description | +--------+ + + + + | 05/08/ | Hospital | [facility] | Mika Tim DNP | Peripheral vascular | | 2020 | Encounter | VASCULAR SURGERY | [address] | disease (HCC) | | | | ULTRASOUND [address] | [place], [place] | | | | | [address] | [address] | | | | | [place], [place] | | | | | | [address] | | | | | | [phone] | | | +--------+ + + + [...] the | | | | PST | ([facility]) | results section. | + +--------+ [...]
--- OUTSIDE RECORDS SUMMARY | ~2019-08-08 | XMS | Encounter Summary ---
Demographics + + + | Address | [address] | | | [place] [address] | + + + | Home Phone | | + + + | Preferred Language | Unknown | + + + | Marital Status | | + + + | Lutheran Affiliation | 1076 | + + + | Race | Unknown | + + + | Ethnic Group | Unknown | + + + Author + + + | Author | [facility] | | | and [place] | + + + | Organization | [facility] | | | and [place] | + + + | Address | Unknown | + + + | Phone | Unavailable | + + + Support + + + + + | Name | Relationship | Address | Phone | + + + + + | Jessica Shepard | ECON | [address] | | | | | [place] | | | | | [address] | | + + + + + | Bel Solis | ECON | Unknown | | + + + + + Care Team Providers + +------+ + | Care Schedule Planning Manager Name | Role | Phone | [...] + + | 05/11/ | Telephone | [facility] | Ely Mcguire | Other (care | | 2020 | | INFECTIOUS DISEASE | [place] | coordination- | | | | [address] | | vancomycin trough ) | | | | [place] | | | | | | [address] | | | | | | [phone] | | | +--------+ + + + [...]
--- OUTSIDE RECORDS SUMMARY | ~2019-08-08 | XMS | Encounter Summary ---
Demographics + + + | Address | [address] | | | [place] [address] | + + + | Home Phone [...] + | Jessica Shepard | ECON | [address] | | | | | [place] | | | | | [address] | | + + + + + | Bel Solis | ECON | Unknown | | + + + + + Care Team Providers + +------+ + | Care Infertility Medical Assistant Name | Role | Phone | [...] + + | 11/21/ | Surgery | [facility] | Simone Aceves, | Amputation Right 5th | | 2018 | | MED CTR OR INTRA OP | DPM [address] | Metatarsal | | | | [address] | [place], [place] | | | | | [place], [place] | [address] | | | | | [address] | [phone] | | | | | [phone] | | | +--------+---------+ + + + [...] other anesthesia was used during the case. [facility] lower extremity was then scrubbed, prepped and [...] -PT/OT ordered Code Status: Full Code Disposition: [facility] Discharge Condition: Stable, very deconditioned and weak at baseline Pleasant, no distress RRR, no m/r/g CTA bilaterally Soft, obese, NT Ext WWP, right foot ulcer with deep wound, slight purulent drainage Contact information for after-discharge care Placement Destination [facility] . Specialty: Long-Term Facility Contact information: [place] [address] Discharge [...] signed by: Justin Reyna MD, 11/25/2017 13:01 [facility] documented in this encounter Medications [...] pantoprazole Mechanical fall -PT/OT ordered Disposition : [facility] as soon as 11/25 Prophylaxis : [...] as outlined above. Justin Reyna 11/24/2017 18:16 [facility] Sang Duff MD - 11/24/2017 [...] as outlined above. Justin Reyna 11/23/2017 14:24 [facility] oSimone mcmullen DPM - 11/23/2017 1:58 PM PDT Foot & Ankle Surgery Progress Note Simone Shepard Age/Gender 72 y.o. male Location [facility] Attending Mil Sandoval MD Hosp Day [...] Value Units Date/Time Culture, Wound, Smear, w/Anaerobe [[id number]] Collected: 11/21/171207 Order Status: Sent Lab Status: In process Updated: 11/21/171249 Specimen: Tissue from Toe, Fifth/Small, Right Narrative: The following orders were created for panel order Culture, Wound, Smear, w/Anaerobe. Procedure Abnormality Status --------- ------ Culture, Wound, Smear[[id number]] In process Culture, Anaerobic[[id number]] In process Please view results for these tests on the individual orders. Culture, Wound, Smear [[id number]] Collected: 11/21/171207 Order Status: Sent Lab Status: In process Updated: 11/21/17 125 Specimen: Tissue from Toe, Fifth/Small, Right Culture, Anaerobic [[id number]] Collected: 11/21/171207 Order Status: Sent Lab Status: [...] Simone Aceves DPM 13:58; 11/23/2017 Irasema Dominguez, Pheresis Specialist - 11/23/2017 9:43 AM PDT PHARMACY SERVICES: [...] strength, and directions X Pharmacy list names: [facility] X [employer] insurance reported information X [...] Prior to Admission Sig: Patient taking differently [employer] as: Hydrocodone-acetaminophen 10-325 mg Take one tablet by mouth four times daily as needed fo r pain Patient taking 1 tablet three times daily as a scheduled dose Best possible [employer] medication list after pharmacy review: PT REPORTED [...] performed and electronically signed by Blanquita Bertrand, Life Science Technician 11/22/2017 8:38 Electronically signed by: Irasema Moyer, Pheresis Specialist 11/23/2017 9:43 each, Justin Ferrell MD - 11/22/2017 5:22 PM PDT Located [...] as outlined above. Justin Reyna 11/22/2017 17:40 [facility] Danielle Claire, Computer Engineer - 11/22/2017 2:13 PM PDTFormatting of this note might be different from t kevin original. VANCOMYCIN PER PHARMACY PROTOCOL: AMS/Drug Name - vancomycin, zosyn Patient: Reagan Sheprad [id number] Admit: 11/19/2017 13:19 RELEVANT ALLERGIES: none [...] Value Units Date/Time Culture, Wound, Smear, w/Anaerobe [[id number]] Collected: 11/21/17 1208 Order Status: Sent Lab Status: In process Updated: 11/21/17 1250 Specimen: Tissue from Toe, Fifth/Small, Right Narrative: The following orders were created for panel order Culture, Wound, Smear, w/Anaerobe. Procedure Abnormality Status --------- ------ Culture, Wound, Smear[[id number]] Preliminary result Culture, Anaerobic[[id number]] In process Please view results for these tests on the individual orders. Culture, Wound, Smear [[id number]] Collected: 11/21/17 1208 Order Status: Completed Lab Status: Preliminary result Updated: 11/22/17 1021 Specimen: Tissue from Toe, Fifth/Small, Right Culture 2+ Lactose Fermenting Gram Negative Bacilli Comment: Identification and susceptibility to follow. Gram Stain Result 2+ White Blood Cells 1+ Epithelial cells 2+ Gram negative rods Culture, Anaerobic [[id number]] Collected: 11/21/17 1208 Order Status: Sent Lab Status: In process Updated: 11/21/17 1250 Specimen: Tissue from Toe, Fifth/Small, Right Respiratory Virus Panel, NAAT [[id number]] Collected: 11/20/17 1257 Order Status: Completed Lab [...] pneumoniae DNA Not Detected Narrative: Performed at: [address] [place] [id number] Dental Chair Assembler: Jurgen Costa MD, Phone: [phone] Culture, Wound, Smear [[id number]] (Susceptibility) Collected: 11/20/17 0825 Order Status: Completed [...] Sulfamethoxazole <=20 ug/mL Sensitive Culture, Wound, Smear [[id number]] (Susceptibility) Collected: 11/19/17 2031 Order Status: Completed [...] no longer reported. Culture, Respiratory, Lower, Smear [[id number]] Order Status: Sent Lab Status: No result Specimen: Body Fluid from Sputum, Expectorated Culture, Wound, Smear [[id number]] Order Status: Canceled Lab Status: No result Specimen: Tissue from Leg, Left Culture, Blood [[id number]] (Normal) Collected: 11/19/17 1537 Order Status: Completed Lab Status: Preliminary result Updated: 11/20/17 0351 Specimen: Blood from Peripheral Blood Culture No growth: Monitored continually by instrument for 5 days Culture, Blood [[id number]] (Normal) Collected: 11/19/17 1506 Order Status: Completed Lab Status: Preliminary result Updated: 11/20/17 0321 Specimen: Blood from Peripheral Blood Culture No growth: Monitored continually by instrument for 5 days Culture, Urine [[id number]] Collected: 11/19/17 1416 Order Status: Completed Lab [...] Monitoring Protocol Electronically signed by: Danielle Guillermo, Computer Engineer 11/22/2017 14:13 Associated attestation - Luther Hampton, [...] DPSunshine Shepard Age/Gender 72 y.o. male Location [facility] Attending Mil Sandoval MD Hosp Day [...] Value Units Date/Time Culture, Wound, Smear, w/Anaerobe [[id number]] Collected: 11/21/171207 Order Status: Sent Lab Status: In process Updated: 11/21/17 1250 Specimen: Tissue from Toe, Fifth/Small, Right Narrative: The following orders were created for panel order Culture, Wound, Smear, w/Anaerobe. Procedure Abnormality Status --------- ------ Culture, Wound, Smear[[id number]] In process Culture, Anaerobic[[id number]] In process Please view results for these tests on the individual orders. Culture, Wound, Smear [[id number]] Collected: 11/21/171207 Order Status: Sent Lab Status: In process Updated: 11/21/17 1250 Specimen: Tissue from Toe, Fifth/Small, Right Culture, Anaerobic [[id number]] Collected: 11/21/171207 Order Status: Sent Lab Status: [...] Value Units Date/Time Culture, Wound, Smear, w/Anaerobe [[id number]] Collected: 11/21/171207 Order Status: Sent Lab Status: In process Updated: 11/21/17 125 Specimen: Tissue from Toe, Fifth/Small, Right Narrative: The following orders were created for panel order Culture, Wound, Smear, w/Anaerobe. Procedure Abnormality Status --------- ------ Culture, Wound, Smear[[id number]] In process Culture, Anaerobic[[id number]] In process Please view results for these tests on the individual orders. Culture, Wound, Smear [[id number]] Collected: 11/21/17 120 Order Status: Sent Lab Status: In process Updated: 11/21/17 125 Specimen: Tissue from Toe, Fifth/Small, Right Culture, Anaerobic [[id number]] Collected: 11/21/17 120 Order Status: Sent Lab Status: In process Updated: 11/21/17 1250 Specimen: Tissue from Toe, Fifth/Small, Right Respiratory Virus Panel, NAAT [[id number]] Collected: 11/20/17 1257 Order Status: Sent Lab Status: In process Updated: 11/20/17 1302 Specimen: Tissue from Nasopharynx Culture, Wound, Smear [[id number]] Collected: 11/20/17 0825 Order Status: Completed Lab Status: Preliminary result Updated: 11/21/17 0739 Specimen: Tissue from Foot, Right Culture 1+ Gram Negative Jayesh, NOT Pseudomonas Comment: Identification and susceptibility to follow. 1+ Gram Positive Cocci Comment: Isolating for additional information. Gram Stain Result 1+ White Blood Cells No organisms seen Culture, Wound, Smear [[id number]] (Susceptibility) Collected: 11/19/17 203 Order Status: Completed [...] <=20 ug/mL Sensitive Culture, Respiratory, Lower, Smear [[id number]] Order Status: Sent Lab Status: No result Specimen: Body Fluid from Sputum, Expectorated Culture, Wound, Smear [[id number]] Order Status: Canceled Lab Status: No result Specimen: Tissue from Leg, Left Culture, Blood [[id number]] (Normal) Collected: 11/19/17 1537 Order Status: Completed Lab Status: Preliminary result Updated: 11/20/17 0351 Specimen: Blood from Peripheral Blood Culture No growth: Monitored continually by instrument for 5 days Culture, Blood [[id number]] (Normal) Collected: 11/19/17 1506 Order Status: Completed Lab Status: Preliminary result Updated: 11/20/17 0321 Specimen: Blood from Peripheral Blood Culture No growth: Monitored continually by instrument for 5 days Culture, Urine [[id number]] Collected: 11/19/17 1416 Order Status: Completed Lab [...] MD - 11/21/2017 11:05 AM PDT [facility] KELLIE GUTIERREZ HOSPITALIST PROGRESS NOTE Patient: Reagan Shepard : 1945: Age: 72 y.o. MedRec: [id number] Admission date: 11/19/2017 Hospital day # : [...] E' Septal Velocity 4.79 cm/s MV Deceleration Saunders 336.24 cm/s2 MV Deceleration Time 332.96 msec [...] Value Units Date/Time Respiratory Virus Panel, NAAT [[id number]] Collected: 11/20/17 1257 Order Status: Sent Lab Status: In process Updated: 11/20/17 1302 Specimen: Tissue from Nasopharynx Culture, Wound, Smear [[id number]] Collected: 11/20/17 0825 Order Status: Completed Lab Status: Preliminary result Updated: 11/21/17 0739 Specimen: Tissue from Foot, Right Culture 1+ Gram Negative Jayesh, NOT Pseudomonas Comment: Identification and susceptibility to follow. 1+ Gram Positive Cocci Comment: Isolating for additional information. Gram Stain Result 1+ White Blood Cells No organisms seen Culture, Wound, Smear [[id number]] (Susceptibility) Collected: 11/19/17 203 Order Status: Completed [...] + Sulfamethoxazole <=20 ug/mL Sensitive Culture, Blood [[id number]] (Normal) Collected: 11/19/17 1537 Order Status: Completed Lab Status: Preliminary result Updated: 11/20/17 0351 Specimen: Blood from Peripheral Blood Culture No growth: Monitored continually by instrument for 5 days Culture, Blood [[id number]] (Normal) Collected: 11/19/17 1506 Order Status: Completed Lab Status: Preliminary result Updated: 11/20/17 0321 Specimen: Blood from Peripheral Blood Culture No growth: Monitored continually by instrument for 5 days Culture, Urine [[id number]] Collected: 11/19/17 1416 Order Status: Completed Lab [...] Other Pharmacy Consult Nasim Jimenez 11/21/2017 11:05 [facility] Nasim Hoff MD - 11/20/2017 10:04 AM PDT [facility] KELLIE GUTIERREZ HOSPITALIST PROGRESS NOTE Patient: Reagan Shepard : 1945: Age: 72 y.o. MedRec: [id number] Admission date: 11/19/2017 Hospital day # : [...] PH UA 5.0 5.0 - 8.0 Specific [place] 1.017 1.001 - 1.030 PROTEIN UA 30 [...] Component Value Units Date/Time Culture, Wound, Smear [[id number]] Collected: 11/20/17 0825 Order Status: Sent Lab Status: In process Updated: 11/20/17 0829 Specimen: Tissue from Foot, Right Culture, Wound, Smear [[id number]] Collected: 11/19/172030 Order Status: Completed Lab Status: Preliminary result Updated: 11/20/17 09 Specimen: Tissue from Leg, Lower, Right Culture 2+ Gram Negative Jayesh, NOT Pseudomonas Comment: Identification and susceptibility to follow. 1+ Gram Positive Cocci Comment: Isolating for additional information. Gram Stain Result No white blood cells (PMNs) seen 1+ Gram negative rods Culture, Blood [[id number]] (Normal) Collected: 11/19/17 1537 Order Status: Completed Lab Status: Preliminary result Updated: 11/20/17 0351 Specimen: Blood from Peripheral Blood Culture No growth: Monitored continually by instrument for 5 days Culture, Blood [[id number]] (Normal) Collected: 11/19/17 1506 Order Status: Completed Lab Status: Preliminary result Updated: 11/20/17 0321 Specimen: Blood from Peripheral Blood Culture No growth: Monitored continually by instrument for 5 days Culture, Urine [[id number]] (Normal) Collected: 11/19/17 1416 Order Status: Completed [...] acute osseous findings. Dictated and Signed by: Rioc Santiago MD Electronically sign ed: 11/19/2017 4:16 [...] Other Pharmacy Consult Nasim Jimenez 11/20/2017 10:05 [facility] ico, Shirley Fuller mD - [...] wo und care x 1 year per [place]. Antimicrobials - Current Antibiotic Dates of Therapy vancomycin 11/19- zosyn 11/19- Antimicrobials - Discontinued Antibiotic Dates of Therapy Historical Vancomycin dosing (previous & current encounter): none Micro/Cultures/Diagnostics: Microbiology Results (Last 14 Days by Collected Date with Culture/Sensitivity) Procedure Component Value Units Date/Time Culture, Wound, Smear [[id number]] Collected: 11/20/17824 Order Status: Sent Lab Status: In process Updated: 11/20/17828 Specimen: Tissue from Foot, Right Culture, Wound, Smear [[id number]] Collected: 11/19/172030 Order Status: Completed Lab Status: Preliminary result Updated: 11/20/17899 Specimen: Tissue from Leg, Lower, Right Culture 2+ Gram Negative Jayesh, NOT Pseudomonas Comment: Identification and susceptibility to follow. 1+ Gram Positive Cocci Comment: Isolating for additional information. Gram Stain Result No white blood cells (PMNs) seen 1+ Gram negative rods Culture, Respiratory, Lower, Smear [[id number]] Order Status: Sent Lab Status: No result Specimen: Body Fluid from Sputum, Expectorated Culture, Wound, Smear [[id number]] Order Status: Canceled Lab Status: No result Specimen: Tissue from Leg, Left Culture, Blood [[id number]] (Normal) Collected: 11/19/17 1537 Order Status: Completed Lab Status: Preliminary result Updated: 11/20/17 0351 Specimen: Blood from Peripheral Blood Culture No growth: Monitored continually by instrument for 5 days Culture, Blood [[id number]] (Normal) Collected: 11/19/17 1506 Order Status: Completed Lab Status: Preliminary result Updated: 11/20/17 0321 Specimen: Blood from Peripheral Blood Culture No growth: Monitored continually by instrument for 5 days Culture, Urine [[id number]] (Normal) Collected: 11/19/17 1416 Order Status: Completed [...] Value Units Date/Time Culture, Respiratory, Lower, Smear [[id number]] Order Status: Sent Lab Status: No result Specimen: Body Fluid from Sputum, Expectorated Culture, Wound, Smear [[id number]] Order Status: Sent Lab Status: No result Specimen: Tissue from Leg, Left Culture, Blood [[id number]] Collected: 11/19/17 1537 Order Status: Sent Lab Status: In process Updated: 11/19/17 1543 Specimen: Blood from Peripheral Blood Culture, Blood [[id number]] Collected: 11/19/17 1506 Order Status: Sent Lab Status: In process Updated: 11/19/17 1511 Specimen: Blood from Peripheral Blood Culture, Urine [[id number]] Collected: 11/19/17 1416 Order Status: Sent Lab [...] K?MRN: | | | | | | [id number] | | | [id number] | | | his | | | [...] | | | ent/06 | | | [id number] | | | -9b07- | | | [...] | | | St. | | | Sarah Ann | | | y H. | | [...] | | | St. | | | Sarah Ann | | | y | | | [...] [address] | [place] | [phone] | | [facility] | | [address] | | | - LABORATORY | | [...] + | [facility] | [address] | [place] | [phone] | | [facility] | | [address] | | | - LABORATORY | | [...] + | [facility] | [address] | [place] | [phone] | | [facility] | | [address] | | | - LABORATORY | | [...] | | | FILTRATION | mL/min/1.73m2 | [facility] | | | [place] | RATE,ESTIMATED | | MEDICAL | | | | mL/min/1.67q1Rluh than | | CENTER - | | [...] [address] | [place] | [phone] | | [facility] | | [address] | | | - LABORATORY | | [...] | Basophils | | K/uL | [facility] | | | | | [...] [address] | [place] | [phone] | | [facility] | | [address] | | | - LABORATORY | | [...] [address] | [place] | [phone] | | [facility] | | [address] | | | - LABORATORY | | [...] [address] | [place] | [phone] | | [facility] | | [address] | | | - LABORATORY | | [...] [address] | [place] | [phone] | | [facility] | | [address] | | | - LABORATORY | | [...] + | [facility] | [address] | [place] | [phone] | | [facility] | | [address] | | | - LABORATORY | | [...] mL/min/1.73m2 | [facility] | | | [place] | RATE,ESTIMATED | | MEDICAL | | | | mL/min/1.38y7Efaf than | | CENTER - | | [...] [address] | [place] | [phone] | | [facility] | | [address] | | | [...] [address] | [place] | [phone] | | [facility] | | [address] | | | - LABORATORY | | [...] + | [facility] | [address] | [place] | [phone] | | [facility] | | [address] | | | - LABORATORY | | [...] [address] | [place] | [phone] | | [facility] | | [address] | | | - LABORATORY | | [...] [address] | [place] | [phone] | | [facility] | | [address] | | | - LABORATORY | | [...] + | [facility] | [address] | [place] | [phone] | | [facility] | | [address] | | | - LABORATORY | | [...] [address] | [place] | [phone] | | [facility] | | [address] | | | - LABORATORY | | [...] mL/min/1.73m2 | [facility] | | | [place] | RATE,ESTIMATED | | MEDICAL | | | | mL/min/1.92d0Elix than | | CENTER - | | [...] [address] | [place] | [phone] | | [facility] | | [address] | | | - LABORATORY | | [...] + | [facility] | [address] | [place] | [phone] | | [facility] | | [address] | | | - LABORATORY | | [...] [address] | [place] | [phone] | | [facility] | | [address] | | | - LABORATORY | | [...] [address] | [place] | [phone] | | [facility] | | [address] | | | - LABORATORY | | [...] + | [facility] | [address] | [place] | [phone] | | [facility] | | [address] | | | - LABORATORY | | [...] ST. | [address] | [place] | [phone] | | [facility] | | [address] | | | - LABORATORY | | [...] [address] | [place] | [phone] | | [facility] | | [address] | | | - LABORATORY | | [...] [address] | [place] | [phone] | | [facility] | | [address] | | | - LABORATORY | | [...] ST. | [address] | [place] | [phone] | | [facility] | | [address] | | | - LABORATORY | | [...] | 1.04 | 0.60 - 1.30 | [facility] | [...] mL/min/1.73m2 | [facility] | | | [place] | RATE,ESTIMATED | | MEDICAL | | | | mL/min/1.37r7Spsy than | | CENTER - | | [...] [address] | [place] | [phone] | | [facility] | | [address] | | | - LABORATORY | | [...] [address] | [place] | [phone] | | [facility] | | [address] | | | - LABORATORY | | [...] ST. | [address] | [place] | [phone] | | [facility] | | [address] | | | - LABORATORY | | [...] [address] | [place] | [phone] | | [facility] | | [address] | | | - LABORATORY | | [...] [facility] | | | | | | [facility] | | | | | [...] [address] | [place] | [phone] | | [facility] | | [address] | | | - LABORATORY | | [...] [address] | [place] | [phone] | | [facility] | | [address] | | | - LABORATORY | | [...] [address] | [place] | [phone] | | [facility] | | [address] | | | - LABORATORY | | [...] + | [facility] | [address] | [place], [place] | [phone] | | [facility] | | [address] | | | - LABORATORY | | [...] cells seen | [facility] | | | [facility] | | | [facility] | | | - LABORATORY | + + + + + + + + | Performing | Address | City/State/Zipcode | Phone Number | | Organization | | | | + + + + + | [facility] | [address] | [place] | [phone] | | [facility] | | [address] | | | - LABORATORY | | [...] + | [facility] | [address] | [place] | [phone] | | [facility] | | [address] | | | - LABORATORY | | [...] [address] | [place] | [phone] | | [facility] | | [address] | | | - LABORATORY | | [...] [address] | [place] | [phone] | | [facility] | | [address] | | | - LABORATORY | | [...] [address] | [place] | [phone] | | [facility] | | [address] | | | - LABORATORY | | [...] + | [facility] | [address] | [place] | [phone] | | [facility] | | [address] | | | - LABORATORY | | [...] | mL/min/1.73m2 | [facility] | | | [place] | RATE,ESTIMATED | | MEDICAL | | | | mL/min/1.01l4Vmei than | | CENTER - | | [...] [address] | [place] | [phone] | | [facility] | | [address] | | | - LABORATORY | | [...] [address] | [place] | [phone] | | [facility] | | [address] | | | - LABORATORY | | [...] [address] | [place] | [phone] | | [facility] | | [address] | | | - LABORATORY | | [...] | | chronic inflammation suggestive of osteomyelitis. [facility]:C2NR | | | MICROSCOPIC EXAMINATION: Histologic [...] decalcified in decal | | | STAT).. am:[facility] PERFORMING LABORATORY: The technical | | | component was performed by [facility], [address] [facility], | | | [facility] [address] (Tread Builder: Khadra Gill MD; CLIA# | | | [id number]). Professional interpretation was performed by [facility] | | | [employer], [facility], [address] [place] [address] (Tread Builder: Ambrosio | | | Madison Hall). Diagnostician: Ambrosio Hall MD | | | Pathologist Electronically Signed 11/23/2017 | | + + + + +---------+ + + | Performing | Address | City/State/Zipcode | Phone Number | | Organization | | | | + +---------+ + + | [place] [facility] | | | | | [facility] | | | | + +---------+ + [...] + | [facility] | [address] | [place] | [phone] | | [facility] | | [address] | | | - LABORATORY | | [...] | | | | | | n Saunders | | | | | + +---------+ [...] + | [facility] | [address] | [place] | [phone] | | [facility] | | [address] | | | - LABORATORY | | [...] + + | Performed at: [address] [facility] [address], | REFERENCE LAB | | [place], [place] [id number] Dental Chair Assembler: Jurgen Costa MD, Phone: | [facility] | | [phone] | | + + + + + + + + | Performing | Address | City/State/Zipcode | Phone Number | | Organization | | | | + + + + + | REFERENCE LAB | [address] | [place], [place] | [phone] | | [facility] | [place]ne [place]argas | [address] | | + + + + + [...] + | [facility] | [address] | [place] | [phone] | | [facility] | | [address] | | | - LABORATORY | | [address] | [place] | [phone] | | [facility] | | [address] | | | - LABORATORY | | [...] [address] | [place] | [phone] | | [facility] | | [address] | | | - LABORATORY | | [...] [address] | [place] | [phone] | | [facility] | | [address] | | | - LABORATORY | | [...] [address] | [place] | [phone] | | [facility] | | [address] | | | - LABORATORY | | [...] [address] | [place] | [phone] | | [facility] | | [address] | | | - LABORATORY | | [...] [address] | [place] | [phone] | | [facility] | | [address] | | | - LABORATORY | | [...] [address] | [place] | [phone] | | [facility] | | [address] | | | - LABORATORY | | [...] + | [facility] | [address] | [place] | [phone] | | [facility] | | [address] | | | - LABORATORY | | [...] | mL/min/1.73m2 | [facility] | | | [facility]O [facility]OME[facility] | RATE,ESTIMATED | | MEDICAL | | | | mL/min/1.35y3Omwf than | | CENTER - | | [...] [address] | [place] | [phone] | | [facility] | | [address] | | | [...] + | [facility] | [address] | [place], [place] | [phone] | | [facility] | | [address] | | | - LABORATORY | | [...] | | POC | | | [facility] | | | | | [...] [address] | [place] | [phone] | | [facility] | | [address] | | | - LABORATORY | | [...] + | [facility] | [address] | [place] | [phone] | | [facility] | | [address] | | | - LABORATORY | | [...] [address] | [place] | [phone] | | [facility] | | [address] | | | - LABORATORY | | [...] + | [facility] | [address] | [place] | [phone] | | [facility] | | [address] | | | - LABORATORY | | [...] + | [facility] | [address] | [place] | [phone] | | [facility] | | [address] | | | - LABORATORY | | [...] ST. | [address] | [place], [place] | [phone] | | [facility] | | [address] | | | - LABORATORY | | [...] + | [facility] | [address] | [place] | [phone] | | [facility] | | [address] | | | - LABORATORY | | [...] mL/min/1.73m2 | [facility] | | | [facility] | RATE,ESTIMATED | | MEDICAL | | | | mL/min/1.12g7Uczt than | | CENTER - | | [...] ST. | [address] | [place], [place] | [phone] | | [facility] | | [address] | | | - LABORATORY | | [...] [address] | [place] | [phone] | | [facility] | | [address] | | | - LABORATORY | | [...] | REFERENCE | | | | of [employer] | | LAB [facility] | | | | standards require a | | - BKR | | | | culture to beperformed | | | | | | on CSF specimens | | | | | | submitted for bacterial | | | | | | antigen testing.(CAP | | | | | | [id number]) Urine | | | | | | specimens will not be | | | | | | cultured. | | | | + + + + + + + + | Specimen | + + | Urine | + + + + + | Narrative | Performed At | + + + | Performed at: 01 - [facility] [address], | REFERENCE LAB | | [place], [place] [id number] Dental Chair Assembler: Christ Deal MD, Phone: | [facility] | | [phone] | | + + + + + + + + | Performing | Address | City/State/Zipcode | Phone Number | | Organization | | | | + + + + + | REFERENCE LAB | [address] | [place], [place] | [phone] | | [place] [facility] [place] | [facility] | [address] | | + + + + + [...] + | [facility] | [address] | [place] | [phone] | | [facility] | | [address] | | | - LABORATORY | | [...] - 1.030 | [facility] | | | [place], | | | [facility] | | [...] [address] | [place] | [phone] | | [facility] | | [address] | | | - LABORATORY | | [...] | | | | | | use Marshall 10/325 if ordered. If | | | [...] scheduled: AC, NPO, Daytime | | | 2416-7775 Use NIGHT DOSE for | | | doses scheduled: HS, 3AM, | | | Nighttime 5048-3968, | | + +---+ | | | [...] | | | MEALS, First dose on [facility] 11/24/17 | | | | | [...]
--- OUTSIDE RECORDS SUMMARY | ~2019-08-08 | XMS | Encounter Summary ---
Demographics + + + | Address | [address] | | | [place] [address] | + + + | Home Phone [...] + | Jessica Shepard | ECON | [address] | | | | | [place] | | | | | [address] | | + + + + + | Bel Solis | ECON | Unknown | | + + + + + Care Team Providers + +------+ + | Care Special Education Resource Teacher Name | Role | Phone | [...] + + | 05/16/ | Documentati | [facility] | Dylan Gaston, | Results (LABS (CMP, | | 2019 | on | INFECTIOUS DISEASE | Hero Malave MD | VANCO TROUGH, CRP, | | | | [address] | [address] | CBC, ESR | | | | [place] | [place] [address] | 05/14/2019)) | | | | [address] | [phone] | | | | | [phone] | | | +--------+ + + + [...] of this encounter Progress Notes Charlotte Castellon, [place] - 05/16/2019 11:48 AM PSTLab Type: CMP, VANCO TR OUGH, CRP, CBC, ESR Lab Collection date: 05/14/2019 Received from:[facility] Abstracted into Videregen:YES Sent to scan:YES Author:CHARLOTTE PALENCIA CMA P [...]
--- OUTSIDE RECORDS SUMMARY | ~2019-08-08 | XMS | Encounter Summary ---
Demographics + + + | Address | [address] | | | [place] [address] | + + + | Home Phone [...] + | Jessica Shepard | ECON | [address] | | | | | [place] | | | | | [address] | | + + + + + | Bel Solis | ECON | Unknown | | + + + + + Care Team Providers + +------+ + | Care Personal Counselor Name | Role | Phone | + +------+ + PCP | Unavailable | + +------+ + Encounter Details +--------+ + + + + | Date | Type | Department | Care Team | Description | +--------+ + + + + | 09/14/ | Hospital | [facility] | | | | 2001 | Encounter | MED CTR XRAY [address] | | | | | | [place] | | | | | | [place] [address] | | | | | | [phone] | | | +--------+ + + + [...]
--- OUTSIDE RECORDS SUMMARY | ~2019-08-08 | XMS | Encounter Summary ---
Demographics + + + | Address | [address] | | | [place] [address] | + + + | Home Phone [...] + | Jessica Shepard | ECON | [address] | | | | | [place] | | | | | [address] | | + + + + + | Bel Solis | ECON | Unknown | | + + + + + Care Team Providers + +------+ + | Care Master Motorcycle Technician Name | Role | Phone | [...] + + | 05/15/ | Office | [facility] | Dylan Gaston, | Chronic | | 2020 | Visit | INFECTIOUS DISEASE | Hero Malave MD | osteomyelitis of | | | | [address] | [address] | right foot (HCC) | | | | [place], [place] | [place] [address] | (Primary Dx); Acute | | | | [address] | [phone] | osteomyelitis of | | | | [phone] | | metatarsal bone, | | | [...] MD - 05/15/2019 3:[address] [facility] Service: Infectious Diseases Outpatient Follow [...] atory failurewho presents as a transfer from [place] ED. Patient is somewhat of a poor historian so the majority of the history is obtained from the record and from the ED physic jacob. Patient had recently been admitted to the [facility] from 03/28/19 to 04/04/19 w here he was treated/diagnosed with systolic heart failure, type 2 ID/NSTEMI, SHAE, ARF. It ap pears that patient [...] . Patient was discharged to [facility]. While there patient apparently became decompensated and desaturated into t he 80s so patient was brought the to ED at [facility] again (03/1618). Patient was found to [...] coverage a call was made to the astronomy department chair transmitter chief here at [facility] (Dr. Jessenia Wallace), who recommended patient [...] Procedure: CYSTOSCOPY; Surgeon: Aleksander Montiel MD; [place] [facility] [place] CHOLECYSTECTOMY FEMORAL-TIBIAL BYPASS GRAFT Right 04/18/2019 Procedure: BYPASS GRAFT FEMORAL-TIBIAL; Surgeon: Gianluca Robbins MD; [place] [facility] [place] HERNIA REPAIR TOE AMPUTATION Right 11/21/2017 Procedure: Amputation Right 5th Metatarsal; Surgeon: Simone Aceves DPM; Location: [facility] SOCIAL HISTORY Social History Socioeconomic History Marital [...] file Gets together: Not on file Attends temple service: Not on file Active member of [...] bacterial infection Gangrene of left foot (HCC) 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
--- OUTSIDE RECORDS SUMMARY | ~2019-08-08 | XMS | Encounter Summary ---
Demographics + + + | Address | [address] | | | [place] [address] | + + + | Home Phone [...] + | Jessica Shepard | ECON | [address] | | | | | [place] | | | | | [address] | | + + + + + | Bel Solis | ECON | Unknown | | + + + + + Care Team Providers + +------+ + | Care Funnel Coater Name | Role | Phone | + +------+ + | Jamar Manuel MD | PCP | | + +------+ + Encounter Details +--------+ + + + + | Date | Type | Department | Care Team | Description | +--------+ + + + + | 05/08/ | Hospital | [facility] | Mika Tim DNP | Peripheral vascular | | 2020 | Encounter | VASCULAR SURGERY | [address] | disease (HCC) | | | | ULTRASOUND [address] | [place], [place] | | | | | [address] | [address] | | | | | [place], [place] | | | | | | [address] | | | | | | [phone] | | | +--------+ + + + [...] | | | | PST | ([facility]) | results section. | + [...]
--- OUTSIDE RECORDS SUMMARY | ~2019-08-08 | XMS | Encounter Summary ---
Demographics + + + | Address | [address] | | | [place] [address] | + + + | Home Phone | | + + + | Preferred Language | Unknown | + + + | Marital Status | | + + + | Lutheran Affiliation | [id number] | + + + | Race | Unknown | + + + | Ethnic Group | Unknown | + + + Author + + + | Author | [facility] | | | and [place] | + + + | Organization | [facility] | | | and [place] | + + + | Address | Unknown | + + + | Phone | Unavailable | + + + Support + + + + + | Name | Relationship | Address | Phone | + + + + + | Jessica Shepard | ECON | [address] | | | | | [place] | | | | | [address] | | + + + + + | Bel Solis | ECON | Unknown | | + + + + + Care Team Providers + +------+ + | Care Farm Agent Name | Role | Phone | + [...] + + | 11/21/ | Surgery | [facility] | Simone Aceves, | Amputation Right 5th | | 2018 | | MED CTR OR INTRA OP | DPM [address] | Metatarsal | | | | [address] | [place], [place] | | | | | [place], [place] | [address] | | | | | [address] | [phone] | | | | | [phone] | | | +--------+---------+ + + + [...] other anesthesia was used during the case. [facility] lower extremity was then scrubbed, prepped [...] -PT/OT ordered Code Status: Full Code Disposition: [facility] Discharge Condition: Stable, very deconditioned and weak at baseline Pleasant, no distress RRR, no m/r/g CTA bilaterally Soft, obese, NT Ext WWP, right foot ulcer with deep wound, slight purulent drainage Contact information for after-discharge care Placement Destination [facility] . Specialty: [facility] Facility Contact information: [place] [phone] Discharge [...] by: Justin Reyna MD, 11/25/2017 13:01 [facility] documented in this encounter Medications at Time [...] might be different f rom the original. [facility] PMG Hospitalist Progress Note Reagan [...] pantoprazole Mechanical fall -PT/OT ordered Disposition : [facility] as soon as 11/25 Prophylaxis [...] as outlined above. Justin Reyna 11/24/2017 18:16 [facility] Sang Duff MD - 11/24/2017 1:59 PM PDTWe are evaluating the patient for further medical rehabilitatio n services. He does not qualify per CMS guidelines for full inpatient rehab . I recommend he be transferred to SNF for further skilled therapies once he is cleared acute ly. Justin Rodriguez MD - 11/23/2017 2:24 PM PDT [facility] PMG Hospitalist Progress Note Reagan [...] as outlined above. Justin Reyna 11/23/2017 14:24 [facility] oSimone mcmullen DPM - 11/23/2017 1:58 PM PDT Foot & Ankle Surgery Progress Note Simone Shepard Age/Gender 72 y.o. male Location [facility] Attending Mil Sandoval MD Hosp [...] Value Units Date/Time Culture, Wound, Smear, w/Anaerobe [[id number]] Collected: 11/21/171207 Order Status: Sent Lab Status: In process Updated: 11/21/171249 Specimen: Tissue from Toe, Fifth/Small, Right Narrative: The following orders were created for panel order Culture, Wound, Smear, w/Anaerobe. Procedure Abnormality Status --------- ------ Culture, Wound, Smear[[id number]] In process Culture, Anaerobic[[id number]] In process Please view results for these tests on the individual orders. Culture, Wound, Smear [[id number]] Collected: 11/21/171207 Order Status: Sent Lab Status: In process Updated: 11/21/17 125 Specimen: Tissue from Toe, Fifth/Small, Right Culture, Anaerobic [[id number]] Collected: 11/21/171207 Order Status: Sent Lab Status: [...] Simone Aceves DPM 13:58; 11/23/2017 Irasema Dominguez, Car Construction Superintendent - 11/23/2017 9:43 AM PDT PHARMACY SERVICES: [...] strength, and directions X Pharmacy list names: [facility] X [employer] insurance reported information X [...] Prior to Admission Sig: Patient taking differently EXPLOSIVES HANDLER as: Hydrocodone-acetaminophen 10-325 mg Take one tablet by mouth four times daily as needed fo r pain Patient taking 1 tablet three times daily as a scheduled dose Best possible EXPLOSIVES HANDLER medication list after pharmacy review: PT REPORTED [...] performed and electronically signed by Blanquita Bertrand, Cascade Operator 11/22/2017 8:38 Electronically signed by: Irasema Moyer, Car Construction Superintendent 11/23/2017 9:43 each, Justin Ferrell MD - 11/22/2017 5:22 PM PDT [facility] PMG Hospitalist Progress Note Reagan [...] as outlined above. 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 No risk factors for MDR organisms. HPI: [...] Value Units Date/Time Culture, Wound, Smear, w/Anaerobe [[id number]] Collected: 11/21/17 1208 Order Status: Sent Lab Status: In process Updated: 11/21/17 1250 Specimen: Tissue from Toe, Fifth/Small, Right Narrative: The following orders were created for panel order Culture, Wound, Smear, w/Anaerobe. Procedure Abnormality Status --------- ------ Culture, Wound, Smear[[id number]] Preliminary result Culture, Anaerobic[[id number]] In process Please view results for these tests on the individual orders. Culture, Wound, Smear [[id number]] Collected: 11/21/17 1208 Order Status: Completed Lab Status: Preliminary result Updated: 11/22/17 1021 Specimen: Tissue from Toe, Fifth/Small, Right Culture 2+ Lactose Fermenting Gram Negative Bacilli Comment: Identification and susceptibility to follow. Gram Stain Result 2+ White Blood Cells 1+ Epithelial cells 2+ Gram negative rods Culture, Anaerobic [[id number]] Collected: 11/21/17 1208 Order Status: Sent Lab Status: In process Updated: 11/21/17 1250 Specimen: Tissue from Toe, Fifth/Small, Right Respiratory Virus Panel, NAAT [[id number]] Collected: 11/20/17 1257 Order Status: Completed Lab [...] DNA Not Detected Narrative: Performed at: [address] [place] [id number] Mapping Analyst: Jurgen Costa MD, Phone: [phone] Culture, Wound, Smear [[id number]] (Susceptibility) Collected: 11/20/17 0825 Order Status: Completed [...] Sulfamethoxazole <=20 ug/mL Sensitive Culture, Wound, Smear [[id number]] (Susceptibility) Collected: 11/19/17 2031 Order Status: Completed [...] no longer reported. Culture, Respiratory, Lower, Smear [[id number]] Order Status: Sent Lab Status: No result Specimen: Body Fluid from Sputum, Expectorated Culture, Wound, Smear [[id number]] Order Status: Canceled Lab Status: No result Specimen: Tissue from Leg, Left Culture, Blood [[id number]] (Normal) Collected: 11/19/17 1537 Order Status: Completed Lab Status: Preliminary result Updated: 11/20/17 0351 Specimen: Blood from Peripheral Blood Culture No growth: Monitored continually by instrument for 5 days Culture, Blood [[id number]] (Normal) Collected: 11/19/17 1506 Order Status: Completed Lab Status: Preliminary result Updated: 11/20/17 0321 Specimen: Blood from Peripheral Blood Culture No growth: Monitored continually by instrument for 5 days Culture, Urine [[id number]] Collected: 11/19/17 1416 Order Status: Completed Lab [...] Monitoring Protocol Electronically signed by: Danielle Guillermo, Engineer Of System Development 11/22/2017 14:13 Associated attestation - Luther Hampton, [...] DPSunshine Shepard Age/Gender 72 y.o. male Location [facility] Attending Mil Sandoval MD Hosp [...] Value Units Date/Time Culture, Wound, Smear, w/Anaerobe [[id number]] Collected: 11/21/171207 Order Status: Sent Lab Status: In process Updated: 11/21/17 1250 Specimen: Tissue from Toe, Fifth/Small, Right Narrative: The following orders were created for panel order Culture, Wound, Smear, w/Anaerobe. Procedure Abnormality Status --------- ------ Culture, Wound, Smear[[id number]] In process Culture, Anaerobic[[id number]] In process Please view results for these tests on the individual orders. Culture, Wound, Smear [[id number]] Collected: 11/21/171207 Order Status: Sent Lab Status: In process Updated: 11/21/17 1250 Specimen: Tissue from Toe, Fifth/Small, Right Culture, Anaerobic [[id number]] Collected: 11/21/171207 Order Status: Sent Lab Status: [...] Diabetes mellitus (HCC); Stroke (cerebrum) ([facility]); an d TBI (traumatic brain injury) ([facility]). . No risk factors for MDR organisms. [...] Value Units Date/Time Culture, Wound, Smear, w/Anaerobe [[id number]] Collected: 11/21/171207 Order Status: Sent Lab Status: In process Updated: 11/21/17 125 Specimen: Tissue from Toe, Fifth/Small, Right Narrative: The following orders were created for panel order Culture, Wound, Smear, w/Anaerobe. Procedure Abnormality Status --------- ------ Culture, Wound, Smear[[id number]] In process Culture, Anaerobic[[id number]] In process Please view results for these tests on the individual orders. Culture, Wound, Smear [[id number]] Collected: 11/21/17 120 Order Status: Sent Lab Status: In process Updated: 11/21/17 125 Specimen: Tissue from Toe, Fifth/Small, Right Culture, Anaerobic [[id number]] Collected: 11/21/17 120 Order Status: Sent Lab Status: In process Updated: 11/21/17 1250 Specimen: Tissue from Toe, Fifth/Small, Right Respiratory Virus Panel, NAAT [[id number]] Collected: 11/20/17 1257 Order Status: Sent Lab Status: In process Updated: 11/20/17 1302 Specimen: Tissue from Nasopharynx Culture, Wound, Smear [[id number]] Collected: 11/20/17 0825 Order Status: Completed Lab Status: Preliminary result Updated: 11/21/17 0739 Specimen: Tissue from Foot, Right Culture 1+ Gram Negative Jayesh, NOT Pseudomonas Comment: Identification and susceptibility to follow. 1+ Gram Positive Cocci Comment: Isolating for additional information. Gram Stain Result 1+ White Blood Cells No organisms seen Culture, Wound, Smear [[id number]] (Susceptibility) Collected: 11/19/17 203 Order Status: Completed [...] <=20 ug/mL Sensitive Culture, Respiratory, Lower, Smear [[id number]] Order Status: Sent Lab Status: No result Specimen: Body Fluid from Sputum, Expectorated Culture, Wound, Smear [[id number]] Order Status: Canceled Lab Status: No result Specimen: Tissue from Leg, Left Culture, Blood [[id number]] (Normal) Collected: 11/19/17 1537 Order Status: Completed Lab Status: Preliminary result Updated: 11/20/17 0351 Specimen: Blood from Peripheral Blood Culture No growth: Monitored continually by instrument for 5 days Culture, Blood [[id number]] (Normal) Collected: 11/19/17 1506 Order Status: Completed Lab Status: Preliminary result Updated: 11/20/17 0321 Specimen: Blood from Peripheral Blood Culture No growth: Monitored continually by instrument for 5 days Culture, Urine [[id number]] Collected: 11/19/17 1416 Order Status: Completed Lab [...] Hoff MD - 11/21/2017 11:[address] [facility] KELLIE GUTIERREZ HOSPITALIST PROGRESS NOTE Patient: Reagan Shepard : 1945: Age: 72 y.o. MedRec: [id number] Admission date: 11/19/2017 Hospital day # : [...] E' Septal Velocity 4.79 cm/s MV Deceleration Garden 336.24 cm/s2 MV Deceleration Time 332.96 msec [...] Value Units Date/Time Respiratory Virus Panel, NAAT [[id number]] Collected: 11/20/17 1257 Order Status: Sent Lab Status: In process Updated: 11/20/17 1302 Specimen: Tissue from Nasopharynx Culture, Wound, Smear [[id number]] Collected: 11/20/17 0825 Order Status: Completed Lab Status: Preliminary result Updated: 11/21/17 0739 Specimen: Tissue from Foot, Right Culture 1+ Gram Negative Jayesh, NOT Pseudomonas Comment: Identification and susceptibility to follow. 1+ Gram Positive Cocci Comment: Isolating for additional information. Gram Stain Result 1+ White Blood Cells No organisms seen Culture, Wound, Smear [[id number]] (Susceptibility) Collected: 11/19/17 203 Order Status: Completed [...] + Sulfamethoxazole <=20 ug/mL Sensitive Culture, Blood [[id number]] (Normal) Collected: 11/19/17 1537 Order Status: Completed Lab Status: Preliminary result Updated: 11/20/17 0351 Specimen: Blood from Peripheral Blood Culture No growth: Monitored continually by instrument for 5 days Culture, Blood [[id number]] (Normal) Collected: 11/19/17 1506 Order Status: Completed Lab Status: Preliminary result Updated: 11/20/17 0321 Specimen: Blood from Peripheral Blood Culture No growth: Monitored continually by instrument for 5 days Culture, Urine [[id number]] Collected: 11/19/17 1416 Order Status: Completed Lab [...] Other Pharmacy Consult Nasim Jimenez 11/21/2017 11:05 [facility] Nasim Hoff MD - 11/20/2017 10:[address] [facility] KELLIE UGTIERREZ HOSPITALIST PROGRESS NOTE Patient: Reagan Shepard : 1945: Age: 72 y.o. MedRec: [id number] Admission date: 11/19/2017 Hospital day # : [...] PH UA 5.0 5.0 - 8.0 Specific [place] 1.017 1.001 - 1.030 PROTEIN UA 30 [...] Component Value Units Date/Time Culture, Wound, Smear [[id number]] Collected: 11/20/17 0825 Order Status: Sent Lab Status: In process Updated: 11/20/17 0829 Specimen: Tissue from Foot, Right Culture, Wound, Smear [[id number]] Collected: 11/19/172030 Order Status: Completed Lab Status: Preliminary result Updated: 11/20/17 09 Specimen: Tissue from Leg, Lower, Right Culture 2+ Gram Negative Jayesh, NOT Pseudomonas Comment: Identification and susceptibility to follow. 1+ Gram Positive Cocci Comment: Isolating for additional information. Gram Stain Result No white blood cells (PMNs) seen 1+ Gram negative rods Culture, Blood [[id number]] (Normal) Collected: 11/19/17 1537 Order Status: Completed Lab Status: Preliminary result Updated: 11/20/17 0351 Specimen: Blood from Peripheral Blood Culture No growth: Monitored continually by instrument for 5 days Culture, Blood [[id number]] (Normal) Collected: 11/19/17 1506 Order Status: Completed Lab Status: Preliminary result Updated: 11/20/17 0321 Specimen: Blood from Peripheral Blood Culture No growth: Monitored continually by instrument for 5 days Culture, Urine [[id number]] (Normal) Collected: 11/19/17 1416 Order Status: Completed [...] Other Pharmacy Consult Nasim Jimenez 11/20/2017 10:05 [facility] ico, Shirley Fuller mD - 11/20/2017 [...] damage to right cerebral hemisphere; Diabetes mellitus ([facility]); Stroke (cerebrum) ([facility]); an d TBI (traumatic brain injury) ([facility]). . No risk factors for MDR organisms. HPI: history of DM, presented with fatigue and slipped wearing socks/falling backwards at h ome w/ left hip/shoulder pain thereafter. No LOC. No dysuria. Fever yesterday, cough with lo ose nonproductive x few days, fatigue and malaise last few days. Chronic right lower alanis wo und care x 1 year per ID. Antimicrobials - Current Antibiotic Dates of Therapy vancomycin 11/19- zosyn 11/19- Antimicrobials - Discontinued Antibiotic Dates of Therapy Historical Vancomycin dosing (previous & current encounter): none Micro/Cultures/Diagnostics: Microbiology Results (Last 14 Days by Collected Date with Culture/Sensitivity) Procedure Component Value Units Date/Time Culture, Wound, Smear [[id number]] Collected: 11/20/17824 Order Status: Sent Lab Status: In process Updated: 11/20/17828 Specimen: Tissue from Foot, Right Culture, Wound, Smear [[id number]] Collected: 11/19/172030 Order Status: Completed Lab Status: Preliminary result Updated: 11/20/17899 Specimen: Tissue from Leg, Lower, Right Culture 2+ Gram Negative Jayesh, NOT Pseudomonas Comment: Identification and susceptibility to follow. 1+ Gram Positive Cocci Comment: Isolating for additional information. Gram Stain Result No white blood cells (PMNs) seen 1+ Gram negative rods Culture, Respiratory, Lower, Smear [[id number]] Order Status: Sent Lab Status: No result Specimen: Body Fluid from Sputum, Expectorated Culture, Wound, Smear [[id number]] Order Status: Canceled Lab Status: No result Specimen: Tissue from Leg, Left Culture, Blood [[id number]] (Normal) Collected: 11/19/17 1537 Order Status: Completed Lab Status: Preliminary result Updated: 11/20/17 0351 Specimen: Blood from Peripheral Blood Culture No growth: Monitored continually by instrument for 5 days Culture, Blood [[id number]] (Normal) Collected: 11/19/17 1506 Order Status: Completed Lab Status: Preliminary result Updated: 11/20/17 0321 Specimen: Blood from Peripheral Blood Culture No growth: Monitored continually by instrument for 5 days Culture, Urine [[id number]] (Normal) Collected: 11/19/17 1416 Order Status: Completed [...] Diabetes mellitus (HCC); Stroke (cerebrum) ([facility]); an d TBI (traumatic brain injury) ([facility]). . No risk factors for MDR organisms. [...] Value Units Date/Time Culture, Respiratory, Lower, Smear [[id number]] Order Status: Sent Lab Status: No result Specimen: Body Fluid from Sputum, Expectorated Culture, Wound, Smear [[id number]] Order Status: Sent Lab Status: No result Specimen: Tissue from Leg, Left Culture, Blood [[id number]] Collected: 11/19/17 1537 Order Status: Sent Lab Status: In process Updated: 11/19/17 1543 Specimen: Blood from Peripheral Blood Culture, Blood [[id number]] Collected: 11/19/17 1506 Order Status: Sent Lab Status: In process Updated: 11/19/17 1511 Specimen: Blood from Peripheral Blood Culture, Urine [[id number]] Collected: 11/19/17 1416 Order Status: Sent Lab [...] | | | PDT | ([facility]) | results section. | + +--------+ [...] K?MRN: | | | | | | [id number] | | | [id number] | | | his | | | [...] | | | ent/06 | | | [id number] | | | -9b07- | | | [...] | | | St. | | | [place] | | | y H. | | [...] | | | St. | | | [place] | | | y | | | [...] [address] | [place] | [phone] | | [facility] | | [address] | | | - LABORATORY | | [...] + | [facility] | [address] | [place] | [phone] | | [facility] | | [address] | | | - LABORATORY | | [...] + | [facility] | [address] | [place] | [phone] | | [facility] | | [address] | | | - LABORATORY | | [...] | | | FILTRATION | mL/min/1.73m2 | [facility] | | | LUX[place] | RATE,ESTIMATED | | MEDICAL | | | | mL/min/1.76l9Npsh than | | CENTER - | | [...] + + | Performing | Address | City/State/[facility]code | Phone Number | | Organization | | | | + + + + + | [facility] | [address] | [place] | [phone] | | [facility] | | [address] | | | - LABORATORY | | [...] | Basophils | | K/uL | [facility] | | | | [...] [address] | [place] | [phone] | | [facility] | | [address] | | | - LABORATORY | | [...] [address] | [place] | [phone] | | [facility] | | [address] | | | - LABORATORY | | [...] [address] | [place] | [phone] | | [facility] | | [address] | | | - LABORATORY | | [...] [address] | [place] | [phone] | | [facility] | | [address] | | | - LABORATORY | | [...] + | [facility] | [address] | [place] | [phone] | | [facility] | | [address] | | | - LABORATORY | | [...] mL/min/1.73m2 | [facility] | | | [place] | RATE,ESTIMATED | | MEDICAL | | | | mL/min/1.67p4Lbve than | | CENTER - | | [...] [address] | [place] | [phone] | | [facility] | | [address] | | | - LABORATORY | | [...] [address] | [place] | [phone] | | [facility] | | [address] | | | - LABORATORY | | [...] + | [facility] | [address] | [place] | [phone] | | [facility] | | [address] | | | - LABORATORY | | [...] [address] | [place] | [phone] | | [facility] | | [address] | | | - LABORATORY | | [address] | [place] | [phone] | | [facility] | | [address] | | | - LABORATORY | | [...] + | [facility] | [address] | [place] | [phone] | | [facility] | | [address] | | | - LABORATORY | | [address] | [place] | [phone] | | [facility] | | [address] | | | - LABORATORY | | [...] mL/min/1.73m2 | [facility] | | | [place] | RATE,ESTIMATED | | MEDICAL | | | | mL/min/1.82c6Tuwn than | | CENTER - | | [...] [address] | [place] | [phone] | | [facility] | | [address] | | | - LABORATORY | | [...] + | [facility] | [address] | [place] | [phone] | | [facility] | | [address] | | | - LABORATORY | | [...] [address] | [place] | [phone] | | [facility] | | [address] | | | - LABORATORY | | [...] [address] | [place] | [phone] | | [facility] | | [address] | | | - LABORATORY | | [...] + | [facility] | [address] | [place] | [phone] | | [facility] | | [address] | | | - LABORATORY | | [...] ST. | [address] | [place] | [phone] | | [facility] | | [address] | | | - LABORATORY | | [...] [address] | [place] | [phone] | | [facility] | | [address] | | | - LABORATORY | | [...] [address] | [place] | [phone] | | [facility] | | [address] | | | - LABORATORY | | [...] ST. | [address] | [place] | [phone] | | [facility] | | [address] | | | - LABORATORY | | [...] | 1.04 | 0.60 - 1.30 | [facility] | | | | | mg/dL | [facility] | | | | | | MEDICAL | | | | | | CENTER - | | | | | | LABORATORY | | + + + + + + | eGFR if not | >60Comment: GLOMERULAR | >=60 | [facility] | | | | FILTRATION | mL/min/1.73m2 | [facility] | | | [place] | RATE,ESTIMATED | | MEDICAL | | | | mL/min/1.90o4Wppt than | | CENTER - | | [...] [address] | [place] | [phone] | | [facility] | | [address] | | | - LABORATORY | | [...] [address] | [place] | [phone] | | [facility] | | [address] | | | - LABORATORY | | [...] ST. | [address] | [place] | [phone] | | [facility] | | [address] | | | - LABORATORY | | [...] [address] | [place] | [phone] | | [facility] | | [address] | | | - LABORATORY | | [...] [facility] | | | | | | [facility] | | | | [...] [address] | [place] | [phone] | | [facility] | | [address] | | | - LABORATORY | | [...] [address] | [place] | [phone] | | [facility] | | [address] | | | - LABORATORY | | [...] [address] | [place] | [phone] | | [facility] | | [address] | | | - LABORATORY | | [...] + | [facility] | [address] | [place], [place] | [phone] | | [facility] | | [address] | | | - LABORATORY | | [...] cells seen | [facility] | | | [facility] | | | [facility] | | | - LABORATORY | + + + + + + + + | Performing | Address | City/State/Zipcode | Phone Number | | Organization | | | | + + + + + | [facility] | [address] | [place] | [phone] | | [facility] | | [address] | | | - LABORATORY | | [...] + | [facility] | [address] | [place] | [phone] | | [facility] | | [address] | | | - LABORATORY | | [address] | [place] | [phone] | | [facility] | | [address] | | | - LABORATORY | | [...] [address] | [place] | [phone] | | [facility] | | [address] | | | - LABORATORY | | [...] [address] | [place] | [phone] | | [facility] | | [address] | | | - LABORATORY | | [...] | | Lymphocytes | | | [facility] | | [...] + | [facility] | [address] | [place] | [phone] | | [facility] | | [address] | | | - LABORATORY | | [...] | mL/min/1.73m2 | [facility] | | | LUXEMBOURGER | RATE,ESTIMATED | | MEDICAL | | | | mL/min/1.10y2Ccwz than | | CENTER - | | [...] [address] | [place] | [phone] | | [facility] | | [address] | | | - LABORATORY | | [...] [address] | [place] | [phone] | | [facility] | | [address] | | | - LABORATORY | | [...] [address] | [place] | [phone] | | [facility] | | [address] | | | - LABORATORY | | [...] | | chronic inflammation suggestive of osteomyelitis. JVR:[facility]:C2NR | | | MICROSCOPIC EXAMINATION: Histologic sections [...] decalcified in decal | | | STAT).. am:AMB:[facility] PERFORMING LABORATORY: The technical | | | component was performed by [employer], [address] [facility], | | | [facility] [address] (Programming Development Project Manager: Khadra Gill MD; CLIA# | | | [id number]). Professional interpretation was performed by [employer] | | | [employer], [facility], [address] [place] [address] (Programming Development Project Manager: Ambrosio | | | Madison Hall). Diagnostician: Ambrosio Hall MD | | | Pathologist Electronically Signed 11/23/2017 | | + + + + +---------+ + + | Performing | Address | City/State/Zipcode | Phone Number | | Organization | | | | + +---------+ + + | [place] [facility] | | | | | [employer] | | | | + +---------+ + [...] + | [facility] | [address] | [place] | [phone] | | [facility] | | [address] | | | - LABORATORY | | [...] | | | | | | n Garden | | | | | + +---------+ [...] + | [facility] | [address] | [place] | [phone] | | [facility] | | [address] | | | - LABORATORY | | [...] + + | Performed at: 01 - [facility] [address], | REFERENCE LAB | | [place], [place] [id number] Mapping Analyst: Jurgen Costa MD, Phone: | [facility] [place] | | [phone] | | + + + + + + + + | Performing | Address | City/State/Zipcode | Phone Number | | Organization | | | | + + + + + | REFERENCE LAB | [address] | [place], [place] | [phone] | | [facility] | Corinne Vargas | [address] | | + + + + + [...] + | [facility] | [address] | [place] | [phone] | | [facility] | | [address] | | | - LABORATORY | | [...] [address] | [place] | [phone] | | [facility] | | [address] | | | - LABORATORY | | [...] [address] | [place] | [phone] | | [facility] | | [address] | | | - LABORATORY | | [...] [address] | [place] | [phone] | | [facility] | | [address] | | | - LABORATORY | | [...] [address] | [place] | [phone] | | [facility] | | [address] | | | - LABORATORY | | [...] [address] | [place] | [phone] | | [facility] | | [address] | | | - LABORATORY | | [...] [address] | [place] | [phone] | | [facility] | | [address] | | | - LABORATORY | | [...] [address] | [place] | [phone] | | [facility] | | [address] | | | - LABORATORY | | [...] + | [facility] | [address] | [place] | [phone] | | [facility] | | [address] | | | - LABORATORY | | [...] | mL/min/1.73m2 | [facility] | | | LUXEMBOURGER | RATE,ESTIMATED | | MEDICAL | | | | mL/min/1.11e0Nztd than | | CENTER - | | [...] [address] | [place] | [phone] | | [facility] | | [address] | | | - LABORATORY | | [...] + | [facility] | [address] | [place], [place] | [phone] | | [facility] | | [address] | | | - LABORATORY | | [...] | | POC | | | [facility] | | | | [...] [address] | [place] | [phone] | | [facility] | | [address] | | | - LABORATORY | | [...] + | [facility] | [address] | [place] | [phone] | | [facility] | | [address] | | | - LABORATORY | | [...] [address] | [place] | [phone] | | [facility] | | [address] | | | - LABORATORY | | [...] + | [facility] | [address] | [place] | [phone] | | [facility] | | [address] | | | - LABORATORY | | [...] + | [facility] | [address] | [place] | [phone] | | [facility] | | [address] | | | - LABORATORY | | [...] ST. | [address] | [place], [place] | [phone] | | [facility] | | [address] | | | - LABORATORY | | [...] + | [facility] | [address] | [place] | [phone] | | [facility] | | [address] | | | - LABORATORY | | [...] mL/min/1.73m2 | [facility] | | | LUXEMBOURGER | RATE,ESTIMATED | | MEDICAL | | | | mL/min/1.91e1Cdeq than | | CENTER - | | [...] ST. | [address] | [place], [place] | [phone] | | [facility] | | [address] | | | - LABORATORY | | [...] [address] | [place] | [phone] | | [facility] | | [address] | | | - LABORATORY | | [...] | REFERENCE | | | | of [place] Pathologists | | LAB [facility] | | | | standards require a | | - BKR | | | | culture to beperformed | | | | | | on CSF specimens | | | | | | submitted for bacterial | | | | | | antigen testing.(CAP | | | | | | [id number]) Urine | | | | | | specimens will not be | | | | | | cultured. | | | | + + + + + + + + | Specimen | + + | Urine | + + + + + | Narrative | Performed At | + + + | Performed at: 01 - [facility] [address] [facility], | REFERENCE LAB | | [place], [place] [id number] Mapping Analyst: Christ Deal MD, Phone: | [facility] | | [phone] | | + + + + + + + + | Performing | Address | City/State/Zipcode | Phone Number | | Organization | | | | + + + + + | REFERENCE LAB | [address] | [place], [place] | [phone] | | [facility] | [facility] | [address] | | + + + + + [...] + | [facility] | [address] | [place] | [phone] | | [facility] | | [address] | | | - LABORATORY | | [...] - 1.030 | [facility] | | | [place], | | | [facility] | | [...] [address] | [place] | [phone] | | [facility] | | [address] | | | - LABORATORY | | [...] | | | | | | use Sherrill 10/325 if ordered. If | | | [...] scheduled: AC, NPO, Daytime | | | 8008-2271 Use NIGHT DOSE for | | | doses scheduled: HS, 3AM, | | | Nighttime 8379-1758, | | + +---+ | | | [...] | | | MEALS, First dose on [facility] 11/24/17 | | | | | [...]
--- OUTSIDE RECORDS SUMMARY | ~2019-08-08 | XMS | Encounter Summary ---
Demographics + + + | Address | [address] | | | [place] [address] | + + + | Home Phone [...] + | Jessica Shepard | ECON | [address] | | | | | [place] | | | | | [address] | | + + + + + | Bel Solis | ECON | Unknown | | + + + + + Care Team Providers + +------+ + | Care Mathematical Statistician Name | Role | Phone | + +------+ + PCP | Unavailable | + +------+ + Encounter Details +--------+ + + + + | Date | Type | Department | Care Team | Description | +--------+ + + + + | 02/22/ | Hospital | [facility] | | | | 2000 | Encounter | MED CTR XRAY [address] | | | | | | [place] | | | | | | [place] [address] | | | | | | [phone] | | | +--------+ + + + [...]
--- OUTSIDE RECORDS SUMMARY | ~2019-08-08 | XMS | Encounter Summary ---
Demographics + + + | Address | [address] | | | [place] [address] | + + + | Home Phone [...] + | Jessica Shepard | ECON | [address] | | | | | [place] | | | | | [address] | | + + + + + | Bel Solis | ECON | Unknown | | + + + + + Care Team Providers + +------+ + | Care Dental Hygiene Teacher Name | Role | Phone | [...] + + | 05/16/ | Documentati | [facility] | Dylan Gaston, | Results (LABS (CMP, | | 2019 | on | INFECTIOUS DISEASE | Hero Malave MD | VANCO TROUGH, CRP, | | | | [address] | [address] | CBC, ESR | | | | [place] | [place] [address] | 05/14/2019)) | | | | [address] | [phone] | | | | | [phone] | | | +--------+ + + + [...] of this encounter Progress Notes Charlotte Castellon, School Supervisor - 05/16/2019 11:48 AM PSTLab Type: CMP, VANCO TR OUGH, CRP, CBC, ESR Lab Collection date: 05/14/2019 Received from:[facility] Abstracted into Trade[employer]riefs:YES Sent to scan:YES Author:CHARLOTTE PALENCIA CMA P [...]
--- OUTSIDE RECORDS SUMMARY | ~2019-08-08 | XMS | Encounter Summary ---
Demographics + + + | Address | [address] | | | [place] [address] | + + + | Home Phone [...] Author | [facility] | | | and [place] | + + + | Organization | [facility] | | | and [place] | + + + | Address | Unknown | + + + | Phone | Unavailable | + + + Support + + + + + | Name | Relationship | Address | Phone | + + + + + | Jessica Amezquita | ECON | [address] | | | | | [place] | | | | | [address] | | + + + + + | Bel Solis | ECON | Unknown | | + + + + + Care Team Providers + +------+ + | Care Painter Spring Name | Role | Phone | + +------+ + | Dian Lr NP | PCP | | + +------+ + Encounter Details +--------+ + + + + | Date | Type | Department | Care Team | Description | +--------+ + + + + | 04/05/ | Hospital | [facility] | Cezar Da Silvaee | | | 2014 - | Encounter | MED CTR EMERGENCY | MD Sunshine [address] | | | | | [place] [address] | [facility], | | | 04/06/ | | [place] | [place] [address] | | | 2013 | | [address] | [phone] | | | | | [phone] | | | +--------+ + + + [...] Performed At | + + + | [facility] | RU[facility] | | Department [address] [facility] | [facility] | | [ rep ct street[address]] [ rep ct [facility] | | [facility]] Signed | - IMAGING | | | | | Patient Name: REAGAN AMEZQUITA Physician: | | | ALICJAR. : 1945 Age: 68 Sex: M Unit #: [id number] | | | Exam Date: 04/05/13 Location: ER | | | Report #: [id number] Page: | | | %(RAD)RES..mtdd.print.filter("pg") of %(RAD) | | | RES..mtdd.print.filter("tpg") | | | | | | Accession Number: [id number] | | | ULTRASOUND OF THE ABDOMEN [...] Transcribed Date/Time: 04/06/2013 08:35 | | | Packing Machine Tender: <<Signature on File>> | | | | | | Rico Santiago MD04/06/13 1619 <Electronically signed by Rico Santiago | | | MD> Rico Santiago MD 04/06/13 0827 Packing Machine Tender: | | | [employer] Isfkbevahjiwz73/17/14 0835 Christina Da Silva, | | | | | + + + + + + + + | Performing | Address | City/State/Zipcode | Phone Number | | Organization | | | | + + + + + | [facility] | [address] | [place] | [phone] | | [facility] | | [address] | | | - IMAGING | | | | + + + + + CT Abdomen Pelvis w Contrast (04/06/2013 7:25 AM PST) + + | Specimen | + + | | + + + + + | Narrative | Performed At | + + + | [facility] | RU[facility] | | Department [address], [place] | [facility] | | [ rep ct street1+2] [ rep ct [facility] | | st zip] Signed | - IMAGING | | | | | Patient Name: REAGAN AMEZQUITA Physician: | | | ALICJAR. : 1945 Age: 68 Sex: M Unit #: [id number] | | | Exam Date: 04/05/13 Location: ER | | | Report #: [id number] Page: | | | %(RAD)RES..mtdd.print.filter("pg") of %(RAD) | | | RES..mtdd.print.filter("tpg") | | | | | | Accession Number: [id number] | | | ENHANCED CT ABDOMEN AND [...] | fluid is evident. There are stable jqjqtplecq-cv-xwuyru enlarged | | | kierra caval lymph [...] STABLE SPLENOMEGALY. | | | 4. STABLE ZNXFSPNOGV-YL-LOHAWR ENLARGED KIERRA CAVAL LYMPH | | | [...] ER | | | staff by the [facility] radiologist on 04/05/2013 at 2147 hours. | | | Dictated Date/Time: 04/06/2013 07:25 Transcribed | | | Date/Time: 04/06/2013 07:40 Packing Machine Tender: | | | <<Signature on File>> | | | Tez Jacobo | | | MD Yossi04/06/13 1051 <Electronically signed by Tez Sy MD> | | | Tez Sy MD 04/06/13 0725 Packing Machine Tender: | | | [employer] Adhaqgaitqybk36/17/14 0740 Christina Da Silva, | | | | | + + + + + + + + | Performing | Address | City/State/Zipcode | Phone Number | | Organization | | | | + + + + + | [facility] | [address] | [place] | [phone] | | [facility] | | [address] | | | - IMAGING | | [...] - 1.030 | [facility] | | | [place], | | | [facility] | | [...] [address] | [place] | [phone] | | [facility] | | [address] | | | - LABORATORY | | | | + + + + + | [facility] | [address] | [place] | | | [facility] | | [address] | | | - LABORATORY | | [...] + | [facility] | [address] | [place] | [phone] | | [facility] | | [address] | | | - LABORATORY | | | | + + + + + | [facility] | [address] | [place], [place] | | | [facility] | | [address], [facility] | | | - LABORATORY | [...] + | [facility] | [address] | [place], [place] | [phone] | | [facility] | | [facility] | | | - LABORATORY | | | | + + + + + | [facility] | [address] | [place], [place] | | | [facility] | | [address] [place] [address] | | | - LABORATORY | | [...] [address] | [place] | [phone] | | [facility] | | [address] | | | - LABORATORY | | | | + + + + + | [facility] | [address] | [place] | | | [facility] | | [address], [facility] | | | - LABORATORY | [...] | | | | REPORT TO [facility] | | | | | | 04/05/13 @ 1919 by | | | | | | SHANE | | | | | | Comment: PHONED REPORT TO [facility] 04/05/13 @ 1919 by SHANE | | [...] [address] | [place] | [phone] | | [facility] | | [address] | | | - LABORATORY | | | | + + + + + | [facility] | [address] | [place] | | | [facility] | | [address] | | | - LABORATORY | | | | + + + + + documented in this encounter Visit Diagnoses Not on filedocumented in this encounter
--- OUTSIDE RECORDS SUMMARY | ~2019-08-08 | XMS | Clinical Summary ---
Demographics + + + | Address | [address] | | | [place] [address] | + + + | Home Phone [...] + | Jessica Shepard | ECON | [address] | | | | | [place] | | | | | [address] | | + + + + + | Bel Solis | ECON | Unknown | | + + + + + Care Team Providers + +------+ + | Care Metal Fabricating Inspector Name | Role | Phone | [...] automatically from request for surgery | | [id number] | + + + + + | Acute osteomyelitis of calcaneum, right | 07/14/2018 | + + + | Essential hypertension | 11/25/2017 | + + + | Insulin dependent diabetes mellitus | 11/22/2017 | + + + + + | Overview: Problem List Project Engineering Manager Utility | + + + + [...] + + + | Overview: Problem List Project Engineering Manager Utility | + + + + [...] Coordination | | 2019 | | | Fixed Capital Clerk | (EOT??); Other (picc | | | | | | d/c) | +--------+ + + + + | 05/22/ | Documentati | Infectious Diseases | Nimo Westbrook, | Other (*Labs from | 2019 | on | | Fixed Capital Clerk | [facility] | | | [...] | Office | Infectious Diseases | Dylan aGston, | Chronic | | 2019 | Visit [...] | | | | of right foot ([facility]) | +--------+ + + + + | 05/14/ | Documentati | Infectious Diseases | Nimo Westbrook, | Other (*Labs from | 2019 | on | | Fixed Capital Clerk | [facility] | | | [...] from | 2019 | on | | Fixed Capital Clerk | [facility] | | | [...] Vasc Epic | | | [place] | [id number] | 10/14/ | [id number] | | [id number]: | | | SCIENTIFIC | [id number] | 2023 | [id number] | | Qty: 1 on 04/11/2019 by Prosper, | | | CHRISTIANO - BSCI | 80 | | 220 / | | Simba Ames MD | | | | | | /[id number] | | | | | | | | 748 | + +------+--------+ +--------+--------+--------+ | Algrft Cv Saph Vein 80-100cm | | Right: | LEMAITRE | | 09/14/ | [id number] | | - | | Leg | VASCULAR | | 2023 | /[id number] | | [id number] | | | INC - MOE | | | [id number] | | ed: Qty: 1 on 04/18/2019 by | | | | | | [id number] | | Gianluca Robbins MD at [facility] | | | | | | 3002 | | [facility] | | | | | | /NA [...] [address] | [place] | [phone] | | [facility] | | [address] | | + + + + + [...] + | REFERENCE LAB | [address] | [place] | [phone] | | [facility] | | [address] | | + + + + + [...] + + | REFERENCE LAB | [facility] | [place] | [phone] | | [facility] | | [address] | | + + + + + [...] + + | REFERENCE LAB | [address] [facility] | [place] | [phone] | | [facility] | | [address] | | + + + + + [...] + + | REFERENCE LAB | [address] [facility] | [place] | [phone] | | [facility] | | [address] | | + + + + + [...] + + + | REFERENCE LAB | [address] [facility] | [place] | [phone] | | [place] | | [address] | | + + + + + [...] +--------+ +---------+--------+ | MEDICARE | MEDICA | [id number] | | [phone] | | Medica | | | RE | | 012-Pr | 5 | | re | | | PART A | | esent | | | | | | AND B | | | | | | + +--------+ +--------+ +---------+--------+ | VETERANS ADMIN | VETERA | [id number] | | | | Indemn | | | NS | | 018-Pr | | | ity | | | ADMIN | | esent | | | | | | [place] | | | | | | | | [place] | | | | | | + +--------+ +--------+ +---------+--------+ | MEDICARE | MEDICA | [id number] | | [phone] | | Medica | | | RE | | 012-Pr | 5 | | re | | | PART A | | esent | | | | | | AND B | | | | | | + +--------+ +--------+ +---------+--------+ | MEDICARE | MEDICA | [id number] | | [phone] | | Medica | | | RE | | 012-Pr | 5 | | re | | | PART A | | esent | | | | | | AND B | | | | | | + +--------+ +--------+ +---------+--------+ | | TRICAR | [id number] | | [phone] | | Indemn | | | E [...] Person | Self | [birth year] | | [address] | | | al/Fam | | 1945 | [phone] | [place] | | | carlos | | | 2 (Home) | [address] | + +--------+ +--------+ + + | Reagan Shepard | Person | Self | [birth year] | | [address] | | | al/Fam | | 1945 | [phone] | [place] | | | carlos | | | 2 (Home) | [address] | + +--------+ +--------+ + + | Reagan Shepard | Person | Self | [birth year] | | [address] | | | al/Fam | | 1945 | [phone] | [place] | | | carlos | | | 2 (Home) | [address] | + +--------+ +--------+ + + Advance Directives + + + + + | Type | Date Recorded | Patient | Explanation | | | | Microfilm Equipment Inspector | | + + + + + | Power of | | | | | Sales Person | | | | + + + [...]
--- OUTSIDE RECORDS SUMMARY | ~2019-08-08 | XMS | Encounter Summary ---
Demographics + + + | Address | [address] | | | [place] [address] | + + + | Home Phone [...] + | Jessica Shepard | ECON | [address] | | | | | [place] | | | | | [address] | | + + + + + | Bel Solis | ECON | Unknown | | + + + + + Care Team Providers + +------+ + | Care Crib Tender Name | Role | Phone | [...] | | | | | (HCC) | [facility] | | | | | | Procedures | [address] | | | | | | [address] | Phone: | | | | | | Art Bilat w | [phone] | | | | | | CINDY Multi | Fax: | | | | | | Lvl | [phone] | | +--------+--------+ + + + + Reason for Visit + + + | Reason | Comments | + + + | Follow-up | | + + + Encounter Details +--------+---------+ + + + | Date | Type | Department | Care Team | Description | +--------+---------+ + + + | 05/21/ | Office | [facility] | Mika Tim, DNP | Peripheral vascular | | 2020 | Visit | VASCULAR SURGERY | [address] | disease (HCC) | | | | [address] | [place], [place] | (Primary Dx); S/P | | | | [place], [place] | [address] | arterial stent; S/P | | | | [address] | | femoral-popliteal | | | | [phone] | | bypass surgery; | | | [...] Mika Tim DNP - 05/22/2019 10:30 AM [facility] [address] [place] [address] Office: [phone] DATE OF VISIT: 05/22/2019 PATIENT NAME: Reagan Shepard : 1945; AGE: 74 y.o.; Sex:M PHONE NUMBER: ; ; PROVIDER: Mika Tim DNP PRIMARY CARE / REFERRING PHYSICIAN: No ref. provider found / Jamar Manuel MD / [address] / [place] [address] REASON FOR EVALUATION / CHIEF COMPLAINT: Vascular [...] have been stable. He is staying at [facility] in [place]. Mraiaelena allen has not followed up with his supervisor word processing Dr. Ceballos yet. He is taking aspirin [...] to bilateral feet ulcers. Follow up with supervisor word processing soon. Return to vascular clinic in 1 [...]
--- OUTSIDE RECORDS SUMMARY | ~2019-08-08 | XMS | Encounter Summary ---
Demographics + + + | Address | [address] | | | [place] [address] | + + + | Home Phone [...] + | Jessica Shepard | ECON | [address] | | | | | [place] | | | | | [address] | | + + + + + | Bel Solis | ECON | Unknown | | + + + + + Care Team Providers + +------+ + | Care Bead Supervisor Name | Role | Phone | [...] | | | | | [place] [address] | | | | | | [phone] | | | +--------+ + + + [...]
--- OUTSIDE RECORDS SUMMARY | ~2019-08-08 | XMS | Encounter Summary ---
Demographics + + + | Address | [address] | | | [place] [address] | + + + | Home Phone [...] + | Jessica Shepard | ECON | [address] | | | | | [place] | | | | | [address] | | + + + + + | Bel Solis | ECON | Unknown | | + + + + + Care Team Providers + +------+ + | Care Ambulance Assistant Name | Role | Phone | [...] | | | | | (HCC) | [facility] | | | | | | Procedures | [address] | | | | | | [address] | Phone: | | | | | | Art Bilat w | [phone] | | | | | | CINDY Multi | Fax: | | | | | | Lvl | [phone] | | +--------+--------+ + + + + Reason for Visit + + + | Reason | Comments | + + + | Follow-up | | + + + Encounter Details +--------+---------+ + + + | Date | Type | Department | Care Team | Description | +--------+---------+ + + + | 05/21/ | Office | [facility] | Mika Tim, DNP | Peripheral vascular | | 2020 | Visit | VASCULAR SURGERY | [address] | disease (HCC) | | | | [address] | [place], [place] | (Primary Dx); S/P | | | | [place], [place] | [id number] | arterial stent; S/P | | | | [id number] | | femoral-popliteal | | | | [phone] | | bypass surgery; | | | [...] Mika Tim DNP - 05/22/2019 10:30 AM [facility] [address] [place] [address] Office: [phone] DATE OF VISIT: 05/22/2019 PATIENT NAME: Reagan Shepard : 1945; AGE: 74 y.o.; Sex:M PHONE NUMBER: ; ; PROVIDER: Mika Tim DNP PRIMARY CARE / REFERRING PHYSICIAN: No ref. provider found / Jamar Manuel MD / [address] / [place] [id number] REASON FOR EVALUATION / CHIEF COMPLAINT: Vascular [...] have been stable. He is staying at [facility] in [place]. Mariaelena allen has not followed up with his migration specialist Dr. Ceballos yet. He is taking aspirin [...] to bilateral feet ulcers. Follow up with migration specialist soon. Return to vascular clinic in 1 [...]
--- OUTSIDE RECORDS SUMMARY | ~2019-08-08 | XMS | Encounter Summary ---
Demographics + + + | Address | [address] | | | [place] [address] | + + + | Home Phone [...] + | Jessica Shepard | ECON | [address] | | | | | [place] | | | | | [address] | | + + + + + | Bel Solis | ECON | Unknown | | + + + + + Care Team Providers + +------+ + | Care Management Nurse Rn Name | Role | Phone | + [...] + + | 05/18/ | Telephone | [facility] | Libra Weaver RN | CHF Management (CHF | | 2020 | | [address] | | quality measures) | | | | [place] | | | | | | [address] | | | | | | [phone] | | | +--------+ + + + [...]
--- OUTSIDE RECORDS SUMMARY | ~2019-08-08 | XMS | Encounter Summary ---
Demographics + + + | Address | [address] | | | [place] [address] | + + + | Home Phone [...] + | Jessica Shepard | ECON | [address] | | | | | [place] | | | | | [address] | | + + + + + | Bel Solis | ECON | Unknown | | + + + + + Care Team Providers + +------+ + | Care Disposal Operator Name | Role | Phone | + +------+ + | Dian Lr NP | PCP | | + +------+ + Encounter Details +--------+ + + + + | Date | Type | Department | Care Team | Description | +--------+ + + + + | 05/14/ | Hospital | [facility] | Conversion | Pain | | 2017 | Encounter | CONVERSION DEP [address] | [address], | | | [address] | Provider Unknown | | | | | [place] | [phone] | | | | | [address] | | | | | | [phone] | | | +--------+ + + + [...]
--- OUTSIDE RECORDS SUMMARY | ~2019-08-08 | XMS | Encounter Summary ---
Demographics + + + | Address | [address] | | | [place] [address] | + + + | Home Phone | | + + + | Preferred Language | Unknown | + + + | Marital Status | | + + + | Cheondoism Affiliation | 1076 | + + + | Race | Unknown | + + + | Ethnic Group | Unknown | + + + Author + + + | Author | [facility] | | | and [place] | + + + | Organization | [facility] | | | and [place] | + + + | Address | Unknown | + + + | Phone | Unavailable | + + + Support + + + + + | Name | Relationship | Address | Phone | + + + + + | Jessica Amezquita | ECON | [address] | | | | | [place] | | | | | [address] | | + + + + + | Bel Solis | ECON | Unknown | | + + + + + Care Team Providers + +------+ + | Care Workday Director Name | Role | Phone | + +------+ + | Dian Lr NP | PCP | | + +------+ + Encounter Details +--------+ + + + + | Date | Type | Department | Care Team | Description | +--------+ + + + + | 05/14/ | Hospital | [facility] | Marlin Mckeon | Received intravenous | | 2017 - | Encounter | [facility] | MD [place] [address] | tissue plasminogen | | | | CARE FLOOR [address] [place], [place] | activator (tPA) in | | 05/19/ | | [facility] | [id number] | emergency | | 2017 | | [place], [place] | | department; Acute | | | | [address] | | left hemiparesis | | | | [phone] | | ([facility]); 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 | | | | | | with hyperglycemia, | | | | | | with long-term | | | | | | current use of | | | | | | insulin ([facility]); | | | | | | Ischemic stroke | | | | | | diagnosed during | | | | | | current admission | | | | | | ([facility]); 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, with | | | | | | long-term current | | | | | | use of insulin | | | | | | ([facility]); Moderate | | | | | | protein-calorie | | | | | | malnutrition ([facility]); | | | | | | Gastroesophageal [...] Date of Service: 05/19/16 105 Status: Signed Roundhouse Worker: Jeff Corley DO (Physician) [facility] Service: Hospitalist Discharge Summary Date of [...] edema Skin - dry no erythema Disposition: [facility] Condition: Stable Code Status: Full Code Discharge [...] Tolerated Follow up: Saurabh Fritz DO [address] [address] Medication List START taking these medications atorvastatin [...] Date of Service: 05/19/16 1231 Status: Signed Roundhouse Worker: Sandra Cedillo RN (Registered Nurse) Report given to ELLIOT Márquez at [facility]. Pt aware of transfer plan. Facility van to pick pt up at 1300. onver elder Transaction, Provider Unknown - 05/19/2016 11:41 AM PST Case Management by Lisa Hogan RN at 05/19/16 1141 Author: Lisa Hogan RN Service: (none) Author Type: Registered Nurse Filed: 05/19/16 1142 Date of Service: 05/19/16 1141 Status: Signed Roundhouse Worker: Lisa Hogan RN (Registered Nurse) 05/19/16 1128 Anticipated Disposition Facility Type senior living facility Discharge Appointment Time 1300 Medicare Important Message (ROS) Given Half-Way Facility Other (comment) ([facility]) Disposition: [facility] Transportation: W/C van provided by facility All orders, signed AVS, and prescriptions have been faxed All DC paperwork completed Patient and family in agreement with discharge plan Medicare important message (Given or N/A): yes Tc to spouse Jessica who agrees with d/c plan to [facility]. Negar onver elder Transaction, Provider Unknown - 05/19/2016 11:40 AM PST Therapy Progress Note by Theresa Gonzales PT at 05/19/16 1140 Author: Theresa Gonzales PT Service: (none) Author Type: Physical Therapist Filed: 05/19/16 1140 Date of Service: 05/19/16 1140 Status: Signed Roundhouse Worker: Theresa Gonzales PT (Physical Therapist) 05/19/16 1139 [...] Author: HARIS Lemon Service: (none) Author Type: Quarter Doper Filed: 05/19/16 1114 Date of Service: 05/19/16 1102 Status: Signed Roundhouse Worker: HARIS Lemon (Quarter Doper) 05/19/16 1100 Discharge Planning Evaluation Admitting Diagnosis CVA, TPA given Anticipated Disposition Facility Type senior living facility Half-Way Facility Other (comment) ([facility]) HAND STEMMER p/c Cheryl Bashir [facility] Coordinator, states she received phone call from [facility] Evel[facility], asking for authorization. HAND STEMMER assisted Pt and Pt (Jessica Devyn [phone]) regarding [facility] form, assisted with form and faxed to [facility] Coordinator - Cheryl Bashir [phone] ext. [phone]. During filli ng out [facility] form, Pt stated "We wanted [facility] over [facility], but we were told [facility] was denied by [place]." HAND STEMMER provided choice of accepting facili ties. HAND STEMMER p/c Carols with [facility] states they will accept Pt, they are VA contracted, if Pt choice. HAND STEMMER met with Negar ZARATE regarding the discrepancy of information about Pt choice. HAND STEMMER with Negar Z[facility] met with Pt and Pt (Jessica Amezquita) regarding choice, after lengthy discussion, they went back and forth regarding facilities, Pt finally chose [facility]. DCP: [facility] NAOMY BOGGSSTANLEY, Quarter Doper [phone] cell onver elder Transaction, Provider Unknown - 05/19/2016 8:06 AM PST Case Management by Lisa Hogan RN at 05/19/16 0806 Author: Lisa Hogan RN Service: (none) Author Type: Registered Nurse Filed: 05/19/161111 Date of Service: 05/19/16805 Status: Addendum Roundhouse Worker: Lisa Hogan RN (Registered Nurse) Related Notes: Original Note by Lisa Hogan RN (Registered Nurse) filed at 05/19/16 082 1 0800:Tc to Carlos at [facility]/[phone] re VA benefits and acceptance. Tc to Jessica, she states she rather have pt go to [facility] and not [facility]/. Went to meet with pt and he spoke to Jessica over the phone and agrees with going to [facility]. Tc to Jimmy at [facility], left [facility] re acceptance. 1030: per Jimmy, they can [...] Note by Hero You RN at 05/19/16 1347 Author: Hero You RN Service: (none) Author Type: Registered Nurse Filed: 05/19/16 0525 Date of Service: 05/19/16524 Status: Signed Roundhouse Worker: Hero You RN (Registered Nurse) No acute changes from previous end of shift report. Will continue monitoring. Hero You RN 05/19/2016 onver elder Transaction, Provider Unknown - 05/18/2016 6:32 PM PST Nurse Progress Note by Sandra Cedillo RN at 05/18/161831 Author: Sandra Cedillo RN Service: (none) Author Type: Registered Nurse Filed: 05/18/161833 Date of Service: 05/18/161831 Status: Signed Roundhouse Worker: Sandra Cedillo RN (Registered Nurse) Pt had [...] Date of Service: 05/18/16 1252 Status: Signed Roundhouse Worker: Jeff Corley DO (Physician) PROGRESS NOTE 05/18/2016 [...] stroke diagnosed during current admission ([facility]) Active Problems: Received intravenous tissue plasminogen activator [...] had an extended conversation with c ase senior care manager about which SNF's/towns he liked and [...] Notes by Jenn Richey RD at 05/18/16 9211 Author: Jenn Richey RD Service: (none) Author Type: Registered Dietitian Filed: 05/18/16 1152 Date of Service: 05/18/16 1150 Status: Signed Roundhouse Worker: Jenn Richey RD (Registered Dietitian) 05/18/16 1054 Subjective Timepoint Follow up Pt c/o In [...] Physical Findings Digestive System (Mouth to Rectum) PRINTER TECHNICIAN following for dysphagia Anthropometrics Weight change Wt [...] Date of Service: 05/18/16 1131 Status: Addendum Roundhouse Worker: Lisa Hogan RN (Registered Nurse) Related Notes: Original Note by Lisa Hogan RN (Registered Nurse) filed at 05/18/16 154 2 1000: Tc melyssa Olmedo([phone] ext [phone]) with VA "Gec" program regardign snf placemen t. Per Ly, pt needs to go to a VA contracted snf if he wants the VA to provide for copay after his medicare coverage no longer pays 100%. Ly statesthese are some available VA c ontracted snfs: [facility], [facility], [facility], [facility]. [facility] nd [facility] are not contracted with them. Per Ly, if paperwork(PT/MD notes and GEC form ) is submitted now, they can admit pt to a VA contracted snf under VA benefits. Informed Salo wang will discuss with pt and spouse Jessica. Per email from Sheila with [facility], pt declined for [facility]PR. 1130:Tc to [facility], she states pt shift supervisor film processing nurse's note, pt has been restless an d primary care nurse practitioner light continously and on IV fentanyl, she is not sure she has the man power to acc ept pt. 1200: Tc to spouse Jessica, , [facility] regarding snf placement. Met with pt regarding snf and VA benefits. Pt states he will discuss with spouse, but would consider going to [facility]. Sent e-referrals. Pt states Jessica will be here this evening and would like to discuss with CM options. Informed pt [facility]) has accepted pt but they are not VA contracted. 1300: per rounding with pt, he wants referral sent to [facility] too. Referral sent. Referral sent to HARIS Nichols to assist with "GEC" paperwork for the VA 1500: Tc to Carlos with [facility]([phone]), he thinks pt can be accepted when medically roseann dy, but first have to review pt's VA benefits to make sure rehab is covered. Tc to Jessica again,([phone]) left [facility] about rehab placement. Attempted to call Shonda reilly at work,[phone], busy signal. 1530: per Jimmy at [facility], they can accept pt when he is medically ready and if he wants to go there. Notified pt onver elder Transaction, Provider Unknown - 05/18/2016 10:37 AM PST Progress Notes by Khadra Osman RD, DANNY at 05/18/16 1037 Author: Khadra Osman RD, CDE Service: (none) Author Type: Line Camera Operator Filed: 05/18/16 1044 Date of Service: 05/18/16 1037 Status: Signed Roundhouse Worker: Khadra Osman RD, CDE (Line Camera Operator) Met with pt. Reports he's had diabetes for 6 years. He gets all medications through the [facility] for his diabetes. States his of 49 years also has insulin dependent diabetes. At [facility] he was prescribed: 50 units of Lantus [...] his blood sugar. Reports he's been through [employer] es education classes two times - but [...] the VA. Khadra Osman RD, MPH, CDE, Line Camera Operator 05/18/2016 10:43 AM onver elder Transaction, Provider Unknown - 05/18/2016 4:36 AM PST Nurse Progress Note by Hero You RN at 05/18/16435 Author: Hero You RN Service: (none) Author Type: Registered Nurse Filed: 05/18/16436 Date of Service: 05/18/16435 Status: Signed Roundhouse Worker: Hero You RN (Registered Nurse) Pts VSS, [...] 05/17/161701 Date of Service: 05/17/161699 Status: Signed Roundhouse Worker: Sandra Cedillo RN (Registered Nurse) Pt anxious [...] Date of Service: 05/17/16 1500 Status: Signed Roundhouse Worker: Cheryl Rodney PT (Physical Therapist) 05/17/16 1500 PT Last Visit PT Received On 05/17/16 Reason for Treatment Stroke Requires PT Follow Up Yes Follow up PT Only? Yes (complexity) Assistance Required 2 person Manager Product Design Needed No Precautions UE Precaution(s) LUE Precautions/WB [...] lift for transfer back to bed - RN/STRAW HAT BRIM CUTTER OPERATOR aware of pt positioning/abilities and need for [...] Barriers to Discharge Cognitive Deficits Impacting Functional [place];Self-care Defici ts Impacting Functional [place];Physical Deficits Impacting Functional [place];Malik rological Impairment (see comment) Recommendation Comments Pt [...] Date of Service: 05/17/16 1238 Status: Addendum Roundhouse Worker: Jeff Corley DO (Physician) Related Notes: Original Note by Jeff Corley DO (Physician) filed at 05/17/16 1559 PROGRESS NOTE 05/17/2016 for Reagan Amezquita on the hospitalist service. ASSESSMENT & PLAN Acute CVA S/p tPA, monitored in ICU, neuro stable. Continue aspirin, statin. BP has been in normal range, not an antihypertensives here or at home. Therapies working with patient, hope to transfer to [facility] pending insurance authorization (tx siobhan). May need to follow with vascular [...] stroke diagnosed during current admission ([facility]) Active Problems: Received intravenous tissue plasminogen activator [...] Management by Lisa Hogan RN at 05/17/16 8708 Author: Lisa Hogan RN Service: (none) Author Type: Registered Nurse Filed: 05/17/16 0096 Date of Service: 05/17/16 1463 Status: Addendum Roundhouse Worker: Lisa Hogan RN (Registered Nurse) Related Notes: Original Note by Lisa Hogan RN (Registered Nurse) filed at 05/17/16 130 3 Per rounding with pt, he is A&O x4. Pending IPR. Sent email to Sheila at [facility] for status. Left VM for PT regarding f/u with pt 1230:Tc to spouse Jessica regarding snf placement in case [facility] declines pt. Jessica upset as s he thought "doctor" had told her son yesterday that pt was a good candidate for [facility] and was accepted to [facility]. Informed Jessica Machado has not made decision yet as he is "following pt". Jessica wants referrals sent to [facility] , [facility] and [facility]. Jessica asks that we dont mention to pt snf placement yet until a decision i s made about IPR. Negar onver elder Harris, Provider Unknown - 05/17/2016 10:05 AM PST Therapy Progress Note by TOLU Xiao/Parminder at 05/17/16 1005 Author: GABE Xiao Service: (none) Author Type: Occupational Therapist Filed: 05/17/16 1240 Date of Service: 05/17/16 1005 Status: Signed Roundhouse Worker: GABE Xiao (Occupational Therapist) 05/17/16 1005 OT Last Visit OT Received On 05/17/16 Reason for Treatment Stroke Requires OT Follow Up Awaiting tx order OT Eval/Reassessment Date 05/17/16 Assistance Required 2 person Manager Product Design Needed No Family/Caregiver Present No Precautions Other Precautions high fall risk, L hemiparesis Other Comments Comments OT eval orders received/verified. Pt willing to participate in OT this AM. Chart r eviewed-relevant to OT evaluation: Left sided weakness, s/p IV rtPA with little improvement, due to right bogdan infarction, most likely mravhi-it-peuqiy in etiology related to uncontrol led DM; [...] Days Recommendation Recommendation Rehab consult Equipment Recommended Pulmonary Function Technician;Bedside commode;Elastic shoe laces;[facility] Ready for Discharge Yes (may benefit [...] note for PLOF Prior Function Level of [place] Independent with functional mobility;Independent with ADLs;Independe nt [...] equipment (bed level) LE Dressing Adaptive Equipment Pulmonary Function Technician;Dressing stick Arm Goals Pt Will Tolerate [...] order Recommendation Recommendation Rehab consult Equipment Recommended Pulmonary Function Technician;Bedside commode;Elastic shoe laces;[facility] OT Ready for [...] stroke, neurological resource center guide Moderate - 96945 High - 11526 History Expanded review of medical records; additional review of physical, cognitive, or ps ychosocial skills Examination Identification of 5 or more performance deficits Decision Making Presents with comorbidities; significant modification of tasks or assistan ce is needed to complete eval Clinical Decision Making Complexity: Moderate 31026 onver elder Transaction, Provider Unknown - 05/17/2016 5:44 AM PST Nurse Progress Note by Hero You RN at 05/17/16543 Author: Hero You RN Service: (none) Author Type: Registered Nurse Filed: 05/17/1650 Date of Service: 05/17/16543 Status: Signed Roundhouse Worker: Hero You RN (Registered Nurse) Pts VSS, [...] 05/16/161652 Date of Service: 05/16/161651 Status: Addendum Roundhouse Worker: Teena Matthew RN (Registered Nurse) Related Notes: Original Note by Teena Matthew RN (Registered Nurse) filed at 3219 No change from previous assessment. VSS, hourly [...] 05/16/161513 Date of Service: 05/16/161511 Status: Signed Roundhouse Worker: Wing Nina Machado MD (Physician) Patient seen [...] Calculation (Bezet) 05/14/2016 455 Final Calculated P [place] 05/14/2016 28 Final Calculated R [place] 05/14/2016 -3 Final Calculated T [place] 05/14/2016 38 Final Diagnosis 05/14/2016 Final Value:Normal [...] by HARIS De La Garza at 05/16/16 2004 Author: HARIS De La Garza Service: (none) Author Type: Building Supplies Salesperson Retail Filed: 05/16/16 5932 Date of Service: 05/16/16 0797 Status: Signed Roundhouse Worker: HARIS De La Garza (Building Supplies Salesperson Retail) 05/16/16 1201 Discharge Planning Evaluation Admitting Diagnosis [...] Yes Name of Pharmacy [facility] in [place], [place] or the [facility] in [place] Previous home health equipment Yes;Comment (Pt uses a cane at baseline) Vascular access device No Ostomy/Drains/Appliances (TBD) Anticipated Disposition Facility Type Other (Comment) Met with patient Reagan Amezquita and discussed discharge planning. 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 The patient resides with his in [facility]. The patient was alert and oriented. [...] disease, and TBI who initially presented to [facility] with left facial droop and left-sided weakness. He had an episode of urinary incontinence and fall, EMS called and patient was brought to [facility]' ED. " "Patient is also complaining of a 3-week history of intermittent left-sided weakness and fal ls. He uses a cane for ambulation." Patient's PCP is: Patient's insurance: [employer] & Medicare Coverage concerns: no Medication coverage/concerns: no Rx Bedside Delivery: Preferred Pharmacy: [facility] [place] or [facility] Community resources utilized / needed: TBD Assistance in transportation: Spouse - Jessica Amezquita [phone] or work [phone] Identification of any specific education / training: no Barriers to Discharge / Alternative housing needed: TBD Anticipated DCP: Home DWIGHT De La Garza John Hill MD - 05/16/2016 8:26 AM PST Progress Notes by John Myrick MD at 05/16/16 08 Author: John Myrick MD Service: (none) Author Type: Physician Filed: 05/16/16 1131 Date of Service: 05/16/16825 Status: Addendum Roundhouse Worker: John Myrick MD (Physician) Related Notes: Original Note by John Myrick MD (Physician) filed at 05/16/16 1108 [facility] Service: Hospitalist Progress Note Pt: Reagan Amezquita AGE/SEX: 71 y.o. male : 1945 ROOM: [address] [place] [address] REQUESTING PROVIDER: John Myrick MD TODAY'S DATE: 05/16/2016 Hospital Day: LOS: 2 days + past medical history of DM 2 with neuropathy, DDD and TBI Transfer from [facility] seen there with left facial droop and left-sided weakness.,episode of urinary incontin ence and fall, .Acute infarction in the right bogdan, CT head unremarkablMRI e, no ICH. As N IHSS score of 14 TPA Was givien tranfer to [facility] for further care SUBJECTIVE aprt from witness [...] hours. No results for input(s): PHART, PO2ART, LMH5VNZ, Q5ZQXDWO, BEART in the last 168 hours. No results for input(s): APTT, INR, PTT in the last 168 hours. No results for input(s): TSH, T3FREE, FREET4 in the last 168 hours. No results for input(s): CKTOTAL, TROPONINI, TROPONINT, CKMBINDEX in the last 168 hours. 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 2- [...] per patient and no documen tation), recommend informatica architect Holter (30 days). 8. General care including [...] Date of Service: 05/16/16 0513 Status: Signed Roundhouse Worker: Hero You RN (Registered Nurse) Pt A&OX4, [...] 05/15/161938 Date of Service: 05/15/161930 Status: Addendum Roundhouse Worker: Sandra Cedillo RN (Registered Nurse) Related Notes: [...] Date of Service: 05/15/16 1242 Status: Signed Roundhouse Worker: Douglas Coelho PT (Physical Therapist) 05/15/16 1242 PT Last Visit PT Received On 05/15/16 Reason for Treatment Stroke Requires PT Follow Up Awaiting tx order Follow up PT Only? Yes (complexity) PT Eval/Reassessment Date 05/15/16 Assistance Required 2 person Manager Product Design Needed No Home Environment Type of Home Home two story Home Exterior Layout Entry steps none Home Interior Layout Flight one;Rail on L ascending;Lives on main level with bedroom/bathro om;Walker accessible Bathroom Shower/Tub Tub/shower unit Bathroom Toilet Standard Bathroom Equipment Hand-held shower head;Tub transfer bench Bathroom Accessibility Accessible via walker Home Equipment Walker 4 wheeled;Cane single point Prior Function Level of [place] Independent with functional mobility;Independent with ADLs;Independe nt [...] Barriers to Discharge Cognitive Deficits Impacting Functional [place];Physical Deficit s Impacting Functional [place];Self-care Deficits Impacting Functional [place];Malik rological Impairment (see comment) Recommendation Comments pt. needs Max x 2 for transfers and mobility and should benefit fro m SNF to improve strength, endurance and functional mobility 05/15/16 1242 PT Last Visit PT Received On 05/15/16 Reason for Treatment Stroke Requires PT Follow Up Awaiting tx order Follow up PT Only? Yes (complexity) PT Eval/Reassessment Date 05/15/16 Assistance Required 2 person Manager Product Design Needed No Precautions UE Precaution(s) LUE Precautions/WB [...] Barriers to Discharge Cognitive Deficits Impacting Functional [place];Physical Deficit s Impacting Functional [place];Self-care Deficits Impacting Functional [place];Malik rological Impairment (see comment) Recommendation Comments pt. needs Max x 2 for transfers and mobility and should benefit fro m SNF to improve strength, endurance and functional mobility Low - 66493 Moderate - 40261 High - 41419 History no personal factors &/or comorbidities 1-2 personal factors &/or comorbidities 3 o r more personal factors &/or comorbidities Examination 1-2 elements 3 elements 4 or more elements Clinical Presentation stable evolving unstable Clinical Decision Making Complexity: Low 03551 Moderate 63243 High 60384 Viviana Ferrer ARNP - 05/15/2016 9:41 AM PSTFormatting of this note might be different from stephanie brown original. Progress Notes by RUBEN Atkins at 05/15/16 09 Author: RUBEN Atkins Service: Transition Lead Author Type: Advanced Registered Nu rse Practitioner Filed: 05/15/16 1345 Date of Service: 05/15/16940 Status: Signed Roundhouse Worker: RUBEN Atkins (Advanced Registered Nurse Practitioner) [facility] Service: Transition Lead Progress Note Reagan Amezquita 71 [facility] [...] disease, and TBI who initially presented to [facility] with left facial droop and left-sided weakness. He had an episode of uri nary incontinence and fall, EMS called and patient was brought to [facility] ED. Patient was last seen normal [...] stroke diagnosed during current admission ([facility]) Active Problems: Received intravenous tissue plasminogen activator [...] of 14. Follow up on arrival to [facility] [facility] 9. Dr. Bernardo following Keep BP < 180/105 mmHg, brain MRI 24 hours post-TPA with no e/o hemorrhage. Keep normoth ermic, normoglycemic. PT/OT/PRINTER TECHNICIAN following. ? cardioembolic as cause for ischemic [...] On room air. GI/NUTRITION: Moderate protein-calorie malnutrition: Silver Plume thick liquids per PRINTER TECHNICIAN recs. GERD: on protonix at home. Continue [...] Service: Neurology Author Type: Physician Filed: 05/15/16 5650 Date of Service: 05/15/16912 Status: Signed Roundhouse Worker: Angelica Bernardo MD (Physician) Subjective: Patient seen [...] due to right bogdan infarction, most likely [id number] in etiology related to uncontrolled DM. 2- [...] per patient and no documen tation), recommend care home Holter (30 days). 9. Consult PT, [...] 05/14/161528 Date of Service: 05/14/161528 Status: Signed Roundhouse Worker: Pretty Dhillon RD, CD (Registered Dietitian) 05/14/16 3213 Subjective Timepoint Admit (dysphagia) Pt c/o Pt [...] Fluid / Beverage Intake Oral Fluids Amount Silver Plume thick liquids ad bryant. Ok for 1 [...] subcutaneous fat. Digestive System (Mouth to Rectum) PRINTER TECHNICIAN following for dysphagia. Skin Intact. Anthropometrics Weight [...] Estimated Energy Needs Total Energy Estimated Needs 2927-4473 kcal/day Method for Estimating Needs 25-30 kcal/kg admit wt (84.7 kg) Estimated Protein Needs Total Protein Estimated Needs 102-127 g protein/day Method for Estimating Needs 1.2-1.5 g protein/kg admit wt (84.7 kg) Recommendations Recommended energy needs Recommend adding diabetic diet restrictions to current PRINTER TECHNICIAN diet or nigel to help optimize glycemic [...] Therapy Progress Note by Kate Hale MA CCC-PRINTER TECHNICIAN at 05/14/16911 Author: Kate Hale MA CCC-PRINTER TECHNICIAN Service: (none) Author Type: Speech and Language Patholo gist Filed: 05/14/1645 Date of Service: 05/14/16911 Status: Signed Roundhouse Worker: Kate Hale MA CCC-PRINTER TECHNICIAN (Speech and Language Pathologist) 05/14/16911 PRINTER TECHNICIAN Last Visit PRINTER TECHNICIAN Received On 05/14/16 Requires PRINTER TECHNICIAN Follow Up Yes Swallowing Assessment Eval Swallowing [...] 1/2 trials by cup, none by spoon) Silver Plume Presentation Cup;Self Fed Oral WFL Pharyngeal Phase [...] Larynge al Elevation Recommendations Liquids Consistency Recommendations Silver Plume thick;Ice chips for oral comfort Diet Consistency [...] diet textures, no awareness until cued by PRINTER TECHNICIAN. At this time, recommen d puree diet [...] monitoring;Patient/Family education; Assessment for upgrade Dysphagia Goals Longterm Goals Safe/efficient oral intake Pt will have safe/efficient oral intake Thin liquids;Mechanical soft diet;With min cues;Ne w/revised goal Short Term Goals Tolerate liquid consistency Pt will tolerate tolerate liquid consistency Silver Plume thick liquids;with 1:1 supervision;New /revised goal onver elder Transaction, Provider Unknown - 05/14/2016 9:12 AM PST Therapy Progress Note by Zenon Schaeffer PT at 05/14/16911 Author: Zenon Schaeffer PT Service: Physical Medicine and Rehab Author Type: Physical Therapist Filed: 05/14/16 1556 Date of Service: 05/14/16911 Status: Signed Roundhouse Worker: Zenon Schaeffer PT (Physical Therapist) 05/14/16911 PT [...] 0557 Date of Service: 05/14/16556 Status: Signed Roundhouse Worker: Iggy Lee RPH (Pharmacist) Pharmacy will renal [...] | | | Fingerstick | performed at [facility];[address] | | LAB | | | | [address];[place], [place] | | | | | | [address] | | | | + + + [...] | | | Fingerstick | performed at [facility];[address] | | LAB | | | | [address];[place], [place] | | | | | | [address] | | | | + + + [...] | | | Fingerstick | performed at [facility];[address] | | LAB | | | | [address];[place] | | | | | | [address] | | | | + + + [...] | | | Fingerstick | performed at [facility];[address] | | LAB | | | | [address];[place] | | | | | | [address] | | | | + + + [...] | | | Fingerstick | performed at [facility];[address] | | LAB | | | | [address];[place] | | | | | | [address] | | | | + + + [...] | | | Fingerstick | performed at [facility];[address] | | LAB | | | | [address];[place], [place] | | | | | | [address] | | | | + + + [...] EXTERNAL | | | | performed at [facility], [address] | K/uL | LAB | | | | [address], | | | | | | [place] [address] | | | | + + + + + + | Red Blood | 4.96Comment: Testing | 4.20 - 5.70 | EXTERNAL | | | Cells | performed at [facility], [address] | M/uL | LAB | | | Counted | [address], | | | | | | [place] [address] | | | | + + + + + + | Hemoglobin | 14.1Comment: Testing | 13.2 - 17.0 | EXTERNAL | | | | performed at [facility], [address] | g/dL | LAB | | | | [address], | | | | | | [place], [place] [address] | | | | + + + + + + | Hematocrit, | 40.8Comment: Testing | 39.0 - 50.0 % | EXTERNAL | | | POC | performed at [facility], [address] | | LAB | | | | [address], | | | | | | [place] [address] | | | | + + + + + + | MCV | 82.3Comment: Testing | 80.0 - 100.0 fl | EXTERNAL | | | | performed at [facility], [address] | | LAB | | | | [address], | | | | | | [place] [address] | | | | + + + + + + | MCH | 28.5Comment: Testing | 27.0 - 34.0 pg | EXTERNAL | | | | performed at [facility], [address] | | LAB | | | | [address], | | | | | | [place] [address] | | | | + + + + + + | MCHC | 34.6Comment: Testing | 32.0 - 35.5 | EXTERNAL | | | | performed at [facility], [address] | g/dL | LAB | | | | [address], | | | | | | [place] [address] | | | | + + + + + + | RDW-CV | 42.0Comment: Testing | 37 - 53 fl | EXTERNAL | | | | performed at [facility], [address] | | LAB | | | | [address], | | | | | | [place] [address] | | | | + + + + + + | Platelet | 219Comment: Testing | 150 - 400 K/uL | EXTERNAL | | | Count | performed at [facility], [address] | | LAB | | | Plasma | [address], | | | | | | [place] [address] | | | | + + + + + + | MPV | 8.6Comment: Testing | fl | EXTERNAL | | | | performed at [facility], [address] | | LAB | | | | [address], | | | | | | [place] [address] | | | | + + + + + + | Differentia | AUTOMATEDComment: | | EXTERNAL | | | l Type | Testing performed at | | LAB | | | | [facility], [address] | | | | | | [place] | | | | | | [address] | | | | + + + + + + | % Segmented | 65.52Comment: Testing | % | EXTERNAL | | | | performed at [facility], [address] | | LAB | | | Neutrophils | [address], | | | | | | [place] [address] | | | | + + + + + + | % | 22.13Comment: Testing | % | EXTERNAL | | | Lymphocytes | performed at [facility], [address] | | LAB | | | | [address], | | | | | | [place] [address] | | | | + + + + + + | % Monocytes | 9.16Comment: Testing | % | EXTERNAL | | | | performed at [facility], [address] | | LAB | | | | [address], | | | | | | [place] [address] | | | | + + + + + + | % | 2.44Comment: Testing | % | EXTERNAL | | | Eosinophils | performed at [facility], [address] | | LAB | | | | [address], | | | | | | [place] [address] | | | | + + + + + + | % Basophils | 0.75Comment: Testing | % | EXTERNAL | | | | performed at [facility], [address] | | LAB | | | | [address], | | | | | | [place] [address] | | | | + + + + + + | Absolute | 6.91Comment: Testing | 1.90 - 7.40 | EXTERNAL | | | Segmented | performed at [facility], [address] | K/uL | LAB | | | Neutrophils | [address], | | | | | | [place] [address] | | | | + + + + + + | Absolute | 2.33Comment: Testing | 1.00 - 3.90 | EXTERNAL | | | Lymphocytes | performed at [facility], [address] | K/uL | LAB | | | | [address], | | | | | | [place] [address] | | | | + + + + + + | Absolute | 0.97 (H)Comment: Testing | 0.00 - 0.80 | EXTERNAL | | | Monocytes | performed at [facility], [address] | K/uL | LAB | | | | [address], | | | | | | [place] [address] | | | | + + + + + + | Absolute | 0.26Comment: Testing | 0.00 - 0.50 | EXTERNAL | | | Eosinophils | performed at [facility], [address] | K/uL | LAB | | | | [address], | | | | | | [place] [address] | | | | + + + + + + | Absolute | 0.08Comment: Testing | 0.00 - 0.10 | EXTERNAL | | | Basophils | performed at [facility], [address] | K/uL | LAB | | | | [address], | | | | | | [place] [address] | | | | + + + [...] EXTERNAL | | | | performed at [facility], [address] | | LAB | | | | [address], | | | | | | [place] [address] | | | | + + + [...] EXTERNAL | | | | performed at [facility], [address] | | LAB | | | | [address], | | | | | | [place] [address] | | | | + + + [...] | | | | | [place] [address] | | | | + + + + + + | K | 4.1Comment: Testing | 3.5 - 4.9 | EXTERNAL | | | | performed at [facility], [address] | mmol/L | LAB | | | | [address], | | | | | | [place] [address] | | | | + + + + + + | Cl | 104Comment: Testing | 99 - 109 mmol/L | EXTERNAL | | | | performed at [facility], [address] | | LAB | | | | [address], | | | | | | [place] [address] | | | | + + + + + + | CO2 | 27Comment: Testing | 23 - 32 mmol/L | EXTERNAL | | | | performed at [facility], [address] | | LAB | | | | [address], | | | | | | [place] [address] | | | | + + + + + + | Anion Gap | 12Comment: Testing | 5 - 20 mmol/L | EXTERNAL | | | | performed at [facility], [address] | | LAB | | | | [address], | | | | | | [place] [address] | | | | + + + + + + | Glucose, | 143 (H)Comment: Testing | 65 - 99 mg/dL | EXTERNAL | | | Fasting | performed at [facility], [address] | | LAB | | | | [address], | | | | | | [place] [address] | | | | + + + + + + | BUN | 9Comment: Testing | 8 - 25 mg/dL | EXTERNAL | | | | performed at [facility], [address] | | LAB | | | | [address], | | | | | | [place] [address] | | | | + + + + + + | Creatinine | 0.6 (L)Comment: Testing | 0.70 - 1.30 | EXTERNAL | | | | performed at [facility], [address] | mg/dL | LAB | | | | [address], | | | | | | [place] [address] | | | | + + + + + + | BUN/Creatin | 15Comment: Testing | | EXTERNAL | | | ine Ratio | performed at [facility], [address] | | LAB | | | | [address], | | | | | | [place] [address] | | | | + + + + + + | Calcium | 8.6Comment: Testing | 8.5 - 10.5 | EXTERNAL | | | | performed at [facility], [address] | mg/dL | LAB | | | | [facility], | | | | | | [place] [address] | | | | + + + [...] W | | | | | | [facility], | | | | | | [place] [address] | | | | + + + [...] | | | Fingerstick | performed at [facility];[address] | | LAB | | | | [address];[place] | | | | | | [address] | | | | + + + [...] | | | Fingerstick | performed at [facility];[address] | | LAB | | | | [address];[place], [place] | | | | | | [address] | | | | + + + [...] | | | Fingerstick | performed at [facility];[address] | | LAB | | | | [address];[place], [place] | | | | | | [address] | | | | + + + [...] | | | Fingerstick | performed at [facility];[address] | | LAB | | | | [address];[place], [place] | | | | | | [address] | | | | + + + [...] | | | | [facility], [address] | | | | | | [place] | | | | | | [address] | | | | + + + + + + | Red Blood | 4.92Comment: Testing | 4.20 - 5.70 | EXTERNAL | | | Cells | performed at [facility], [address] | M/uL | LAB | | | Counted | [address], | | | | | | [place] [address] | | | | + + + + + + | Hemoglobin | 13.9Comment: Testing | 13.2 - 17.0 | EXTERNAL | | | | performed at [facility], [address] | g/dL | LAB | | | | [address], | | | | | | [place] [address] | | | | + + + + + + | Hematocrit, | 40.8Comment: Testing | 39.0 - 50.0 % | EXTERNAL | | | POC | performed at [facility], [address] | | LAB | | | | [address], | | | | | | [place] [address] | | | | + + + + + + | MCV | 83.0Comment: Testing | 80.0 - 100.0 fl | EXTERNAL | | | | performed at [facility], [address] | | LAB | | | | [address], | | | | | | [place] [address] | | | | + + + + + + | MCH | 28.3Comment: Testing | 27.0 - 34.0 pg | EXTERNAL | | | | performed at [facility], [address] | | LAB | | | | [address], | | | | | | [place] [address] | | | | + + + + + + | MCHC | 34.0Comment: Testing | 32.0 - 35.5 | EXTERNAL | | | | performed at [facility], [address] | g/dL | LAB | | | | [address], | | | | | | [place] [address] | | | | + + + + + + | RDW-CV | 42.4Comment: Testing | 37 - 53 fl | EXTERNAL | | | | performed at [facility], [address] | | LAB | | | | [address], | | | | | | [place] [address] | | | | + + + + + + | Platelet | 215Comment: Testing | 150 - 400 K/uL | EXTERNAL | | | Count | performed at [facility], [address] | | LAB | | | Plasma | [address], | | | | | | [place] [address] | | | | + + + + + + | MPV | 8.5Comment: Testing | fl | EXTERNAL | | | | performed at [facility], [address] | | LAB | | | | [address], | | | | | | [place] [address] | | | | + + + + + + | Differentia | AUTOMATEDComment: | | EXTERNAL | | | l Type | Testing performed at | | LAB | | | | [facility], [address] | | | | | | [place] | | | | | | [address] | | | | + + + + + + | % Segmented | 70.19Comment: Testing | % | EXTERNAL | | | | performed at [facility], [address] | | LAB | | | Neutrophils | [address], | | | | | | [place] [address] | | | | + + + + + + | % | 17.93Comment: Testing | % | EXTERNAL | | | Lymphocytes | performed at [facility], [address] | | LAB | | | | [address], | | | | | | [place] [address] | | | | + + + + + + | % Monocytes | 8.97Comment: Testing | % | EXTERNAL | | | | performed at [facility], [address] | | LAB | | | | [address], | | | | | | [place] [address] | | | | + + + + + + | % | 2.27Comment: Testing | % | EXTERNAL | | | Eosinophils | performed at [facility], [address] | | LAB | | | | [address], | | | | | | [place] [address] | | | | + + + + + + | % Basophils | 0.64Comment: Testing | % | EXTERNAL | | | | performed at [facility], [address] | | LAB | | | | [address], | | | | | | [place] [address] | | | | + + + + + + | Absolute | 7.86 (H)Comment: Testing | 1.90 - 7.40 | EXTERNAL | | | Segmented | performed at [facility], [address] | [address] | LAB | | | Neutrophils | [address], | | | | | | [place] [address] | | | | + + + + + + | Absolute | 2.01Comment: Testing | 1.00 - 3.90 | EXTERNAL | | | Lymphocytes | performed at [facility], [address] | K/uL | LAB | | | | [address], | | | | | | [place] [address] | | | | + + + + + + | Absolute | 1.01 (H)Comment: Testing | 0.00 - 0.80 | EXTERNAL | | | Monocytes | performed at [facility], [address] | [address]/uL | LAB | | | | [address], | | | | | | [place] [address] | | | | + + + + + + | Absolute | 0.25Comment: Testing | 0.00 - 0.50 | EXTERNAL | | | Eosinophils | performed at [facility], [address] | K/uL | LAB | | | | [address], | | | | | | [place] [address] | | | | + + + + + + | Absolute | 0.07Comment: Testing | 0.00 - 0.10 | EXTERNAL | | | Basophils | performed at [facility], [address] | K/uL | LAB | | | | [address], | | | | | | [place] [address] | | | | + + [...] EXTERNAL | | | | performed at [facility], [address] | | LAB | | | | [address], | | | | | | [place] [address] | | | | + + + [...] EXTERNAL | | | | performed at [facility], [address] | | LAB | | | | [address], | | | | | | [place] [address] | | | | + + + [...] | | | | | [place] [address] | | | | + + + + + + | K | 3.9Comment: Testing | 3.5 - 4.9 | EXTERNAL | | | | performed at [facility], [address] | mmol/L | LAB | | | | [address], | | | | | | [place] [address] | | | | + + + + + + | Cl | 103Comment: Testing | 99 - 109 mmol/L | EXTERNAL | | | | performed at [facility], [address] | | LAB | | | | [address], | | | | | | [place] [address] | | | | + + + + + + | CO2 | 25Comment: Testing | 23 - 32 mmol/L | EXTERNAL | | | | performed at [facility], [address] | | LAB | | | | [address], | | | | | | [place] [address] | | | | + + + + + + | Anion Gap | 15Comment: Testing | 5 - 20 mmol/L | EXTERNAL | | | | performed at [facility], [address] | | LAB | | | | [address], | | | | | | [place] [address] | | | | + + + + + + | Glucose, | 132 (H)Comment: Testing | 65 - 99 mg/dL | EXTERNAL | | | Fasting | performed at [facility], [address] | | LAB | | | | [address], | | | | | | [place] [address] | | | | + + + + + + | BUN | 9Comment: Testing | 8 - 25 mg/dL | EXTERNAL | | | | performed at [facility], [address] | | LAB | | | | [address], | | | | | | [place] [address] | | | | + + + + + + | Creatinine | 0.5 (L)Comment: Testing | 0.70 - 1.30 | EXTERNAL | | | | performed at [facility], [address] | mg/dL | LAB | | | | [address], | | | | | | [place] [address] | | | | + + + + + + | BUN/Creatin | 18Comment: Testing | | EXTERNAL | | | ine Ratio | performed at [facility], [address] | | LAB | | | | [address], | | | | | | [place] [address] | | | | + + + + + + | Calcium | 8.4 (L)Comment: Testing | 8.5 - 10.5 | EXTERNAL | | | | performed at [facility], [address] | mg/dL | LAB | | | | [address], | | | | | | [place] [address] | | | | + + + + + + | Protein, | 6.0 (L)Comment: Testing | 6.3 - 8.2 g/dL | EXTERNAL | | | Total | performed at [facility], [address] | | LAB | | | | [address], | | | | | | [place] [address] | | | | + + + + + + | Albumin | 3.0 (L)Comment: Testing | 3.3 - 4.8 g/dL | EXTERNAL | | | | performed at [facility], [address] | | LAB | | | | [address], | | | | | | [place] [address] | | | | + + + + + + | Globulin | 3.0Comment: Testing | 1.3 - 4.9 g/dL | EXTERNAL | | | | performed at [facility], [address] | | LAB | | | | [address], | | | | | | [place] [address] | | | | + + + + + + | A/G Ratio | 1.0Comment: Testing | 1.0 - 2.4 | EXTERNAL | | | | performed at [facility], [address] | | LAB | | | | [address], | | | | | | [place] [address] | | | | + + + + + + | Bilirubin | 1.4Comment: Testing | 0.1 - 1.5 mg/dL | EXTERNAL | | | Total | performed at [facility], [address] | | LAB | | | | [address], | | | | | | [place] [address] | | | | + + + + + + | ALP, | 77Comment: Testing | 35 - 115 U/L | EXTERNAL | | | External | performed at [facility], [address] | | LAB | | | | [address], | | | | | | [place] [address] | | | | + + + + + + | AST | 14Comment: Testing | 10 - 45 U/L | EXTERNAL | | | | performed at [facility], [address] | | LAB | | | | [address], | | | | | | [place] [address] | | | | + + + + + + | ALT | 13Comment: Testing | 10 - 65 U/L | EXTERNAL | | | | performed at [facility], [address] | | LAB | | | | [address], | | | | | | [place] [address] | | | | + + + [...] | | | | | [place] [address] | | | | + + + [...] | | | Fingerstick | performed at [facility];[address] | | LAB | | | | [address];[place] | | | | | | [address] | | | | + + + [...] | | | Fingerstick | performed at [facility];[address] | | LAB | | | | [address];[place], [place] | | | | | | [address] | | | | + + + [...] | | | to suboptimal images. MEASUREMENTS Wash House Supervisor: | | | KVW Authenticated by: [...] due to suboptimal images. MEASUREMENTS | | Wash House Supervisor: ELIZABETHuthenticated by: Aleksandar DotsonReport Date/Time: 05-16-2016 20:59:22 [...] | |MEASUREMENTS | | | | | |Wash House Supervisor: MARILUW | |Authenticated by: Aleksandar Dotson [...] | | | Fingerstick | performed at [facility];[address] | | LAB | | | | [address];[place] | | | | | | [address] | | | | + + + [...] was also examined | | | with [employer] 3D software for evaluation of the cerebral [...] Conversion - 11/02/2018 6:55 AM PDT REAGAN [id number] years MaleCTA | | HEAD NECK W [...] The data set was also examined with [employer] 3[employer] software for evaluation of the cerebral [...] | | | | [facility], [address] [facility] | | | | | | [place] | | | | | | [address] | | | | + + + + + + | Red Blood | 4.77Comment: Testing | 4.20 - 5.70 | EXTERNAL | | | Cells | performed at [facility], [address] | M/uL | LAB | | | Counted | [facility], | | | | | | [place] [address] | | | | + + + + + + | Hemoglobin | 13.4Comment: Testing | 13.2 - 17.0 | EXTERNAL | | | | performed at [facility], [address] | g/dL | LAB | | | | [address], | | | | | | [place] [address] | | | | + + + + + + | Hematocrit, | 39.1Comment: Testing | 39.0 - 50.0 % | EXTERNAL | | | POC | performed at [facility], [address] | | LAB | | | | [address], | | | | | | [place] [address] | | | | + + + + + + | MCV | 82.0Comment: Testing | 80.0 - 100.0 fl | EXTERNAL | | | | performed at [facility], [address] | | LAB | | | | [address], | | | | | | [place] [address] | | | | + + + + + + | MCH | 28.0Comment: Testing | 27.0 - 34.0 pg | EXTERNAL | | | | performed at [facility], [address] | | LAB | | | | [address], | | | | | | [place] [address] | | | | + + + + + + | MCHC | 34.1Comment: Testing | 32.0 - 35.5 | EXTERNAL | | | | performed at [facility], [address] | g/dL | LAB | | | | [address], | | | | | | [place] [address] | | | | + + + + + + | RDW-CV | 42.9Comment: Testing | 37 - 53 fl | EXTERNAL | | | | performed at [facility], [address] | | LAB | | | | [address], | | | | | | [place] [address] | | | | + + + + + + | Platelet | 238Comment: Testing | 150 - 400 K/uL | EXTERNAL | | | Count | performed at [facility], [address] | | LAB | | | Plasma | [address], | | | | | | [place] [address] | | | | + + + + + + | MPV | 8.8Comment: Testing | fl | EXTERNAL | | | | performed at [facility], [address] | | LAB | | | | [address], | | | | | | [place] [address] | | | | + + + + + + | Differentia | AUTOMATEDComment: | | EXTERNAL | | | l Type | Testing performed at | | LAB | | | | [facility], [address] | | | | | | [place] | | | | | | [address] | | | | + + + + + + | % Segmented | 68.92Comment: Testing | % | EXTERNAL | | | | performed at [facility], [address] | | LAB | | | Neutrophils | [address], | | | | | | [place] [address] | | | | + + + + + + | % | 18.94Comment: Testing | % | EXTERNAL | | | Lymphocytes | performed at [facility], [address] | | LAB | | | | [address], | | | | | | [place] [address] | | | | + + + + + + | % Monocytes | 10.32Comment: Testing | % | EXTERNAL | | | | performed at [facility], [address] | | LAB | | | | [address], | | | | | | [place] [address] | | | | + + + + + + | % | 1.25Comment: Testing | % | EXTERNAL | | | Eosinophils | performed at [facility], [address] | | LAB | | | | [address], | | | | | | [place] [address] | | | | + + + + + + | % Basophils | 0.57Comment: Testing | % | EXTERNAL | | | | performed at [facility], [address] | | LAB | | | | [address], | | | | | | [place] [address] | | | | + + + + + + | Absolute | 8.86 (H)Comment: Testing | 1.90 - 7.40 | EXTERNAL | | | Segmented | performed at [facility], [address] | [address] | LAB | | | Neutrophils | [address], | | | | | | [place] [address] | | | | + + + + + + | Absolute | 2.44Comment: Testing | 1.00 - 3.90 | EXTERNAL | | | Lymphocytes | performed at [facility], [address] | [address] | LAB | | | | [address], | | | | | | [place] [address] | | | | + + + + + + | Absolute | 1.33 (H)Comment: Testing | 0.00 - 0.80 | EXTERNAL | | | Monocytes | performed at [facility], [address] | LAB | | | | [address], | | | | | | [place] [address] | | | | + + + + + + | Absolute | 0.16Comment: Testing | 0.00 - 0.50 | EXTERNAL | | | Eosinophils | performed at [facility], [address] | LAB | | | | [address], | | | | | | [place] [address] | | | | + + + + + + | Absolute | 0.07Comment: Testing | 0.00 - 0.10 | EXTERNAL | | | Basophils | performed at [facility], [address] | [address] | LAB | | | | [address], | | | | | | [place] [address] | | | | + + + [...] | | | Fingerstick | performed at [facility];[address] | | LAB | | | | [address];[place], [place] | | | | | | [address] | | | | + + + [...] | | | | | performed at [facility], [address] | | | | | | [address], | | | | | | [place] [address] | | | | + + + [...] W | | | | | | [facility], | | | | | | [place] [address] | | | | + + + [...] | | | | | [place] [address] | | | | + + + + + + | K | 4.2Comment: SPECIMEN | 3.5 - 4.9 | EXTERNAL | | | | SLIGHTLY | mmol/L | LAB | | | | HEMOLYZEDTesting | | | | | | performed at [facility], [address] | | | | | | [address], | | | | | | [place] [address] | | | | + + + + + + | Cl | 104Comment: Testing | 99 - 109 mmol/L | EXTERNAL | | | | performed at [facility], [address] | | LAB | | | | [address], | | | | | | [place] [address] | | | | + + + + + + | CO2 | 25Comment: Testing | 23 - 32 mmol/L | EXTERNAL | | | | performed at [facility], [address] | | LAB | | | | [address], | | | | | | [place] [address] | | | | + + + + + + | Anion Gap | 14Comment: Testing | 5 - 20 mmol/L | EXTERNAL | | | | performed at [facility], [address] | | LAB | | | | [address], | | | | | | [place] [address] | | | | + + + [...] | | | | | [place] [address] | | | | + + + + + + | BUN | 9Comment: Testing | 8 - 25 mg/dL | EXTERNAL | | | | performed at TCL, [address] | | LAB | | | | [address], | | | | | | [place] [address] | | | | + + + + + + | Creatinine | 0.7Comment: SPECIMEN | 0.70 - 1.30 | EXTERNAL | | | | SLIGHTLY | mg/dL | LAB | | | | HEMOLYZEDTesting | | | | | | performed at T[facility], [address] | | | | | [address], | | | | | | [place] [address] | | | | + + + + + + | BUN/Creatin | 13Comment: Testing | | EXTERNAL | | | ine Ratio | performed at [facility], [address] | | LAB | | | | [address], | | | | | | [place] [address] | | | | + + + + + + | Calcium | 8.5Comment: Testing | 8.5 - 10.5 | EXTERNAL | | | | performed at [facility], [address] | mg/dL | LAB | | | | [address], | | | | | | [place] [address] | | | | + + + + + + | Protein, | 5.8 (L)Comment: Testing | 6.3 - 8.2 g/dL | EXTERNAL | | | Total | performed at TC, [address] | | LAB | | | | [address], | | | | | | [place] [address] | | | | + + + + + + | Albumin | 2.8 (L)Comment: Testing | 3.3 - 4.8 g/dL | EXTERNAL | | | | performed at TC, [address] | | LAB | | | | [address], | | | | | | [place] [address] | | | | + + + + + + | Globulin | 3.0Comment: Testing | 1.3 - 4.9 g/dL | EXTERNAL | | | | performed at TC, [address] | | LAB | | | | [address], | | | | | | [place] [address] | | | | + + + + + + | A/G Ratio | 0.9 (L)Comment: Testing | 1.0 - 2.4 | EXTERNAL | | | | performed at TC, [address] | | LAB | | | | [address], | | | | | | [place] [address] | | | | + + + + + + | Bilirubin | 1.7 (H)Comment: SPECIMEN | 0.1 - 1.5 mg/dL | EXTERNAL | | | Total | SLIGHTLY | | LAB | | | | HEMOLYZEDTesting | | | | | | performed at [facility], [address] | | | | | | [address], | | | | | | [place] [address] | | | | + + + + + + | ALP, | 77Comment: Testing | 35 - 115 U/L | EXTERNAL | | | External | performed at [facility], [address] | | LAB | | | | [address], | | | | | | [place] [address] | | | | + + + + + + | AST | 18Comment: SPECIMEN | 10 - 45 U/L | EXTERNAL | | | | SLIGHTLY | | LAB | | | | HEMOLYZEDTesting | | | | | | performed at [facility], [address] | | | | | | [address], | | | | | | [place] [address] | | | | + + + + + + | ALT | 15Comment: SPECIMEN | 10 - 65 U/L | EXTERNAL | | | | SLIGHTLY | | LAB | | | | HEMOLYZEDTesting | | | | | | performed at [facility], [address] | | | | | | [address], | | | | | | [place] [address] | | | | + + + [...] | | | | | [place] [address] | | | | + + + [...] | | | Fingerstick | performed at [facility];[address] | | LAB | | | | [address];[place], [place] | | | | | | [address] | | | | + + + [...] | | | Fingerstick | performed at [facility];[address] | | LAB | | | | [address];[place] | | | | | | [address] | | | | + + + [...] | | | | | [place] [address] | | | | + + + [...] | | | Fingerstick | performed at [facility];[address] | | LAB | | | | [address];[place] | | | | | | [address] | | | | + + + [...] Performed At | + + + | [facility] MRI BRAIN WO AND MRA HEAD 05/15/2016 10:47 AM | | | HISTORY: Stroke. Status post TPA administration. TECHNIQUE: | | | Multiplanar MR imaging was performed through the brain without | | | gadolinium. 3-D jcmd-ty-mppwhy MR angiography was also performed to | [...] Johnson, Rad Conversion - 11/02/2018 6:55 AM [facility] | | HEAD05/15/2016 10:47 AM HISTORY:Stroke. Status post TPA administration. | | TECHNIQUE:Multiplanar MR imaging was performed through the brain without gadolinium. 3-D | | yowb-un-ukjixq MR angiography was also performed to the [...] | | | Fingerstick | performed at [facility];[address] | | LAB | | | | [place] | | | | | | [address] | | | | + + + [...] | | | Fingerstick | performed at [facility];[address] | | LAB | | | | [address];[place] | | | | | | [address] | | | | + + + [...] | | | Fingerstick | performed at [facility];[address] | | LAB | | | | [address];[place], [place] | | | | | | [address] | | | | + + + [...] | | | Fingerstick | performed at [facility];[address] | | LAB | | | | [address];[place] | | | | | | [address] | | | | + + + [...] | | | | [facility], [address] [facility] | | | | | | [place] | | | | | | [address] | | | | + + + + + + | Red Blood | 5.01Comment: Testing | 4.20 - 5.70 | EXTERNAL | | | Cells | performed at [facility], [address] | M/uL | LAB | | | Counted | [address], | | | | | | [place] [address] | | | | + + + + + + | Hemoglobin | 14.0Comment: Testing | 13.2 - 17.0 | EXTERNAL | | | | performed at [facility], [address] | g/dL | LAB | | | | [address], | | | | | | [place] [address] | | | | + + + + + + | Hematocrit, | 40.8Comment: Testing | 39.0 - 50.0 % | EXTERNAL | | | POC | performed at [facility], [address] | | LAB | | | | [address], | | | | | | [place] [address] | | | | + + + + + + | MCV | 81.5Comment: Testing | 80.0 - 100.0 fl | EXTERNAL | | | | performed at [facility], [address] | | LAB | | | [address], | | | | | | [place] [address] | | | | + + + + + + | MCH | 27.9Comment: Testing | 27.0 - 34.0 pg | EXTERNAL | | | | performed at [facility], [address] | | LAB | | | | [address], | | | | | | [place] [address] | | | | + + + + + + | MCHC | 34.2Comment: Testing | 32.0 - 35.5 | EXTERNAL | | | | performed at [facility], [address] | g/dL | LAB | | | | [address], | | | | | | [place] [address] | | | | + + + + + + | RDW-CV | 42.0Comment: Testing | 37 - 53 fl | EXTERNAL | | | | performed at [facility], [address] | | LAB | | | | [address], | | | | | | [place] [address] | | | | + + + + + + | Platelet | 257Comment: Testing | 150 - 400 K/uL | EXTERNAL | | | Count | performed at [facility], [address] | | LAB | | | Plasma | [address], | | | | | | [place] [address] | | | | + + + + + + | MPV | 8.4Comment: Testing | fl | EXTERNAL | | | | performed at [facility], [address] | | LAB | | | | [address], | | | | | | [place] [address] | | | | + + + + + + | Differentia | AUTOMATEDComment: | | EXTERNAL | | | l Type | Testing performed at | | LAB | | | | [facility], [address] | | | | | | [place] | | | | | | [address] | | | | + + + + + + | % Segmented | 72.88Comment: Testing | % | EXTERNAL | | | | performed at T[facility], [address] | | LAB | | | Neutrophils | [address], | | | | | | [place], [place] [address] | | | | + + + + + + | % | 17.64Comment: Testing | % | EXTERNAL | | | Lymphocytes | performed at [facility], [address] | | LAB | | | | [address], | | | | | | [place], [place] [address] | | | | + + + + + + | % Monocytes | 8.16Comment: Testing | % | EXTERNAL | | | | performed at [facility], [address] | | LAB | | | | [address], | | | | | | [place] [address] | | | | + + + + + + | % | 1.06Comment: Testing | % | EXTERNAL | | | Eosinophils | performed at [facility], [address] | | LAB | | | | [address], | | | | | | [place] [address] | | | | + + + + + + | % Basophils | 0.26Comment: Testing | % | EXTERNAL | | | | performed at [facility], [address] | | LAB | | | | [address], | | | | | | [place] [address] | | | | + + + + + + | Absolute | 10.84 (H)Comment: | 1.90 - 7.40 | EXTERNAL | | | Segmented | Testing performed at | K/uL | LAB | | | Neutrophils | [facility], [address] | | | | | | [place] | | | | | | [address] | | | | + + + + + + | Absolute | 2.62Comment: Testing | 1.00 - 3.90 | EXTERNAL | | | Lymphocytes | performed at [facility], [address] | K/uL | LAB | | | | [address], | | | | | | [place] [address] | | | | + + + + + + | Absolute | 1.21 (H)Comment: Testing | 0.00 - 0.80 | EXTERNAL | | | Monocytes | performed at [facility], [address] | K/uL | LAB | | | | [address], | | | | | | [place] [address] | | | | + + + + + + | Absolute | 0.16Comment: Testing | 0.00 - 0.50 | EXTERNAL | | | Eosinophils | performed at [facility], [address] | K/uL | LAB | | | | [address], | | | | | | [place] [address] | | | | + + + + + + | Absolute | 0.04Comment: Testing | 0.00 - 0.10 | EXTERNAL | | | Basophils | performed at [facility], [address] | K/uL | LAB | | | | [address], | | | | | | [place] [address] | | | | + + + [...] EXTERNAL | | | | performed at [facility], [address] | | LAB | | | | [address], | | | | | | [place] [address] | | | | + + + [...] EXTERNAL | | | | performed at [facility], [address] | | LAB | | | | [address], | | | | | | [place] [address] | | | | + + + [...] | EXTERNAL | | | A1c | [facility] | | LAB | | | [...] | | | | | performed at [facility], [address] | | | | | [address], | | | | | | [place] [address] | | | | + + + [...] | | | | | performed at [facility], [address] | | | | | | [address], | | | | | | [place] [address] | | | | + + + [...] EXTERNAL | | | | performed at [facility], [address] | | LAB | | | | [address], | | | | | | [place] [address] | | | | + + + + + + | Triglycerid | 152 (H)Comment: Testing | mg/dL | EXTERNAL | | | es | performed at [facility], [address] | | LAB | | | | [address], | | | | | | [place] [address] | | | | + + + + + + | HDL | 31 (L)Comment: Testing | mg/dL | EXTERNAL | | | | performed at TC, [address] | | LAB | | | | [address], | | | | | | [place] [address] | | | | + + + + + + | LDL, | 47Comment: Testing | mg/dL | EXTERNAL | | | Calculated | performed at TC, [address] | | LAB | | | | [address], | | | | | | [place] [address] | | | | + + + [...] | | | | | [place] [address] | | | | + + + + + + | K | 3.3 (L)Comment: Testing | 3.5 - 4.9 | EXTERNAL | | | | performed at [facility], [address] | mmol/L | LAB | | | | [address], | | | | | | [place] [address] | | | | + + + + + + | Cl | 104Comment: Testing | 99 - 109 mmol/L | EXTERNAL | | | | performed at [facility], [address] | | LAB | | | | [address], | | | | | | [place] [address] | | | | + + + + + + | CO2 | 25Comment: Testing | 23 - 32 mmol/L | EXTERNAL | | | | performed at [facility], [address] | | LAB | | | | [address], | | | | | | [place] [address] | | | | + + + + + + | Anion Gap | 12Comment: Testing | 5 - 20 mmol/L | EXTERNAL | | | | performed at [facility], [address] | | LAB | | | | [address], | | | | | | [place] [address] | | | | + + + + + + | Glucose, | 125 (H)Comment: Testing | 65 - 99 mg/dL | EXTERNAL | | | Fasting | performed at [facility], [address] | | LAB | | | | [address], | | | | | | [place] [address] | | | | + + + + + + | BUN | 11Comment: Testing | 8 - 25 mg/dL | EXTERNAL | | | | performed at [facility], [address] | | LAB | | | | [address], | | | | | | [place] [address] | | | | + + + + + + | Creatinine | 0.7Comment: Testing | 0.70 - 1.30 | EXTERNAL | | | | performed at [facility], [address] | mg/dL | LAB | | | | [address], | | | | | | [place] [address] | | | | + + + + + + | BUN/Creatin | 16Comment: Testing | | EXTERNAL | | | ine Ratio | performed at TC, [address] | | LAB | | | | [address], | | | | | | [place] [address] | | | | + + + + + + | Calcium | 8.3 (L)Comment: Testing | 8.5 - 10.5 | EXTERNAL | | | | performed at [facility], [address] | mg/dL | LAB | | | | [address], | | | | | | [place] [address] | | | | + + + [...] [address], | | | | | | [place] [address] | | | | + + + [...] | | | Fingerstick | performed at [facility];[address] | | LAB | | | | [address];[place], [place] | | | | | | [address] | | | | + + + [...] | | | Fingerstick | performed at [facility];[address] | | LAB | | | | [address];[place], [place] | | | | | | [address] | | | | + + + [...] | | | Fingerstick | performed at [facility];[address] | | LAB | | | | [place] [address];[place] | | | | | | [address] | | | | + + + [...] | | | Fingerstick | performed at [facility];[address] | | LAB | | | | [address];[place], [place] | | | | | | [address] | | | | + + + [...] | | | Fingerstick | performed at [facility];[address] | | LAB | | | | [address];[place] | | | | | | [address] | | | | + + + [...] | | | Fingerstick | performed at [facility];[address] | | LAB | | | | [address];[place] | | | | | | [address] | | | | + + + [...] | | | Fingerstick | performed at [facility];[address] | | LAB | | | | [address];[place] | | | | | | [address] | | | | + + + [...] | | | Fingerstick | performed at [facility];[address] | | LAB | | | | [address];[place] | | | | | | [address] | | | | + + + [...] | | | Fingerstick | performed at [facility];[address] | | LAB | | | | [address];[place], [place] | | | | | | [address] | | | | + + + [...] | | | Fingerstick | performed at [facility];[address] | | LAB | | | | [address];[place], [place] | | | | | | [address] | | | | + + + [...] | | | Fingerstick | performed at [facility];[address] | | LAB | | | | [address];[place] | | | | | | [address] | | | | + + + [...] | | | Fingerstick | performed at [facility];[address] | | LAB | | | | [place];[place] | | | | | | [address] | | | | + + + [...] | | | Fingerstick | performed at [facility];[address] | | LAB | | | | [address];[place] | | | | | | [address] | | | | + + + [...] | | | Fingerstick | performed at [facility];[address] | | LAB | | | | [address];[place] | | | | | | [address] | | | | + + + [...] | | | Fingerstick | performed at [facility];[address] | | LAB | | | | [place] | | | | | | [address] | | | | + + + [...] | | | Fingerstick | performed at [facility];[address] | | LAB | | | | [place];[place], [place] | | | | | | [address] | | | | + + + [...] | | Jefe: 0.48 m/s TV Dec [place]: 3.62 m/s2 TV Dec Time: 136.62 | | | ms TV E Jefe: 0.49 m/s TV E/A Ratio: 1.02 Wash House Supervisor: TRINY | | | Authenticated by: Aleksandar Westbrookmendota Report Date/Time: 05-14-2016 | | | 17:14:37 | | + + + + + | Procedure Note | + + | Eliel Ornelas Conversion - 11/02/2018 6:55 AM PDT Patient Name: Aria AMEZQIUTA of | | : 1945 Performing Physician: [...] | Index (A-L): 25.78 ml/m2LAAs A2C: 20.06 [id number] A-L A2C: 56.80 mlLAESV MOD A2C: | | 53.98 mlLALs A2C: 6.01 cmLAAs A4C: 18.67 [id number] A-L A4C: 45.70 mlLAESV MOD A4C: | | 43.69 mlLALs A4C: 6.47 cmHR: 94.31 BPMAV maxP.45 mmHgAV meanP.54 | | mmHgAV Vmax: 1.61 m/Abilio Vmean: 1.22 m/Abilio VTI: 27.30 cmAVA Vmax: 2.68 cm2AVA | | (VTI): 2.69 wv4HSWC Vmax: 0.00 cm2/m2AVAI (VTI): 0.00 cm2/m2LVCI Dopp: 3.08 | | l/ieep6YZOU Dopp: 6.31 l/minHR: 85.80 BPMLVOT maxP.48 mmHgLVOT meanP.11 | | mmHgLVSI Dopp: 35.92 ml/m2LVSV Dopp: 73.65 mlLVOT Vmax: 1.36 m/sLVOT Vmean: 0.96 | | m/sLVOT VTI: 23.22 cmMCO: 392.13 msMV A Jefe: 1.50 m/sMV DecT: 213.25 msMV E | | Jefe: 0.88 m/sMV E/A Ratio: 0.59MV PHT: 74.39 msMVA By PHT: 2.95 rl1Rstfee e': | | 0.05 m/sSeptal E/e': 14.80RAP: 8 mmHgTV A Jefe: 0.48 m/sTV Dec [place]: 3.62 m/s2TV | | Dec Time: 136.62 msTV E Jefe: 0.49 m/sTV E/A Ratio: 1.02 Wash House Supervisor: | | GDAuthenticated by: [facility] Date/Time: 05-14-2016 17:14:37 IMPRESSION: 1. | [...] A Jefe: 0.48 m/s | |TV Dec [place]: 3.62 m/s2 | |TV Dec Time: 136.62 ms | |TV E Jefe: 0.49 m/s | |TV E/A Ratio: 1.02 | | | |Wash House Supervisor: TRINY | |Authenticated by: Aleksandar Dotson [...] EXTERNAL LAB | | Testing performed at [address];[place] [address] MRSA PCR | | | NEGATIVE Testing performed at | | | [address];[place] [address] | | + + + + +---------+ [...] | | | Fingerstick | performed at [facility];[address] | | LAB | | | | [address];[place], [place] | | | | | | [address] | | | | + + + [...] + + | Historically converted procedure from [facility] Epic environment | EXTERNAL LAB | + [...]
--- OUTSIDE RECORDS SUMMARY | ~2019-08-08 | XMS | Clinical Summary ---
Demographics + + + | Address | [address] | | | [place] [address] | + + + | Home Phone [...] Author | [facility] [employer] (Historical as of | | | 11-04-18) | + + + | Organization | [facility] (Historical as of | | | [...] Providers + +------+ + | Care Data Center Engineer Name | Role | Phone | [...] + + + | Overview: Problem List [employer] | + + + + + | Acute left hemiparesis (HCC) | 05/14/2016 | + + + | Type 2 diabetes mellitus with hyperglycemia, with long-term | 05/14/2016 | | current use of insulin ([facility]) | | + + + | [...] + + | MEDICARE | MEDICA | [id number] | | | [address] | | | RE | | | | [place] [address] | | | IP-OP | | | | | + +--------+ +------+ + + | VETERANS | VETERA | [id number] | | [phone] [employer]EE SERVICES [id number] | | ADMINISTRATION | [place] | | | [phone] | | | ADMINI | | | | [place] | | | [place] | | | | [phone] | | | ON | | | [...] | Self | [birth year] | Home: | [address] | | | al/Fam | | 7 | +- | [place] | | | carlos | | | [address] | [address] | + +--------+ +--------+ + + | SAROJ AMEZQUITA | Vetera | Self | [birth year] | Home: | [address] | | | ns | | 1944 | +- | [place] | | | Admini | | | [phone] | [address] | | | strati | | | | | | | on | | | | | + +--------+ +--------+ + +
--- OUTSIDE RECORDS SUMMARY | ~2019-08-08 | XMS | Encounter Summary ---
Demographics + + + | Address | [address] | | | [place] [address] | + + + | Home Phone [...] + | Jessica Shepard | ECON | [address] | | | | | [place] | | | | | [address] | | + + + + + | [place] | ECON | Unknown | | + + + + + Care Team Providers + +------+ + | Care Plate Embosser Name | Role | Phone | + [...] 2019 | on | INFECTIOUS DISEASE | Curriculum And Instruction Director | [facility] | | | | [address] | | 05/21/2019 | | | | [place] | | (CBC,CMP,ESR,CRP,VAN | | | | [address] | | CO TROUGH)) | | | | [phone] | | | +--------+ + + + [...] as of this encounter Progress Nimo Harley, Curriculum And Instruction Director - 05/23/2019 3:55 PM PST*Labs from [facility] 04/2019 (CBC,CMP,ESR,CRP,VANCO TROUGH) RECEIVED: 05/23/2019 Labs were abstracted into [employer] and sent to scan. Kaye CMA Tdocumented [...] [address] | [place] | [phone] | | [facility] | | [address] | | + + + + + [...] + + + | REFERENCE LAB | [facility] | [place] | [phone] | | [facility] | | [address] | | + + + + + [...] + | REFERENCE LAB | [address] | [place] | [phone] | | [facility] | | [address] | | + + + + + [...] + | REFERENCE LAB | [address] | [place] | [phone] | | [facility] | | [address] | | + + + + + [...] LAB | [address] [facility] | [place] | [phone] | | [facility] | | [address] | | + + + + + [...]
--- OUTSIDE RECORDS SUMMARY | ~2019-08-08 | XMS | Encounter Summary ---
Demographics + + + | Address | [address] | | | [place] [address] | + + + | Home Phone [...] + | Jessica Shepard | ECON | [address] | | | | | [place] | | | | | [address] | | + + + + + | [place] | ECON | Unknown | | + + + + + Care Team Providers + +------+ + | Care Afternoon Nanny Name | Role | Phone | + +------+ + | Jamar Manuel MD | PCP | | + +------+ + Encounter Details +--------+ + + + + | Date | Type | Department | Care Team | Description | +--------+ + + + + | 05/08/ | Hospital | [facility] | Mika Tim DNP | Peripheral vascular | | 2020 | Encounter | VASCULAR SURGERY | [address] | disease (HCC) | | | | ULTRASOUND [address] | [place] [address] [place], [place] | | | | | [address] | [address] | | | | | [place], [place] | | | | | | [address] | | | | | | [phone] | | | +--------+ + + + [...] the | | | | PST | ([facility]) | results section. | + [...]
--- OUTSIDE RECORDS SUMMARY | ~2019-08-08 | XMS | Encounter Summary ---
Demographics + + + | Address | [address] | | | [place] [address] | + + + | Home Phone [...] + | Jessica Shepard | ECON | [address] | | | | | [place] | | | | | [address] | | + + + + + | [place] | ECON | Unknown | | + + + + + Care Team Providers + +------+ + | Care Incident Response Engineer Name | Role | Phone | + +------+ + PCP | Unavailable | + +------+ + Encounter Details +--------+ + + + + | Date | Type | Department | Care Team | Description | +--------+ + + + + | 04/16/ | Hospital | [facility] | Dian Lr NP | | | 2011 | Encounter | MED CTR XRAY [address] | | | | | [place] | [place] [address] | | | | | [place] [address] | [phone] | | | | | [phone] | | | +--------+ + + + [...] Performed At | + + + | [facility] Diagnostic Imaging Department | [facility] | | [address] | [facility] | | [...] Transcribed Date/Time: | | | 04/16/2011 14:14 Metal Cutter: <Electronically Signed | | | by David Guillermo MD> 04/16/11 1459 | | + + + + + | Procedure Note | + + | Johnson, Rad Conversion - 04/27/2013 4:[address] [facility] | | Diagnostic Imaging Department [address] [place] [address] | | BONE DENSITY TESTIN04/16/2011 CLINICAL HISTORY: [...] 13:48 | |Transcribed Date/Time: 04/16/2011 14:14 | |Metal Cutter: | |<Electronically Signed by David Guillermo MD> [...]
--- OUTSIDE RECORDS SUMMARY | ~2019-08-08 | XMS | Clinical Summary ---
Demographics + + + | Address | [address] | | | [place] [address] | + + + | Home Phone [...] + | Jessica Shepard | ECON | [address] | | | | | [place] | | | | | [address] | | + + + + + | Bel Solis | ECON | Unknown | | + + + + + Care Team Providers + +------+ + | [facility] President Name | Role | Phone | + [...] automatically from request for surgery | | [id number] | + + + + + | Acute osteomyelitis of calcaneum, right | 07/14/2018 | + + + | Essential hypertension | 11/25/2017 | + + + | Insulin dependent diabetes mellitus | 11/22/2017 | + + + + + | Overview: Problem List [employer] | + + + + + [...] + + + | Overview: Problem List [employer] | + + + + + [...] Coordination | | 2019 | | | Pension Agent | (EOT??); Other (picc | | | | | | d/c) | +--------+ + + + + | 05/22/ | Documentati | Infectious Diseases | Nimo Westbrook, | Other (*Labs from | 2019 | on | | Pension Agent | [facility] | | | [...] | | of right foot ([facility]) | +--------+ + + + + | 05/14/ | Documentati | Infectious Diseases | Nimo Westbrook, | Other (*Labs from | 2019 | on | | Pension Agent | [facility] | | | [...] from | 2019 | on | | Pension Agent | [facility] | | | [...] Vasc Epic | | | [place] | [id number] | 10/14/ | [id number] | | [id number]: | | | SCIENTIFIC | [id number] | 2023 | [id number] | | Qty: 1 on 04/11/2019 by Prosper, | | | CHRISTIANO - BSCI | 80 | | 220 / | | Simba Ames MD | | | | | | /[id number] | | | | | | | | 748 | + +------+--------+ +--------+--------+--------+ | Algrft Cv Saph Vein 80-100cm | | Right: | LEMAITRE | | 09/14/ | [id number] | | - | | Leg | VASCULAR | | 2023 | [id number] | | [id number] | | | INC - MOE | | | [id number] | | ed: Qty: 1 on 04/18/2019 by | | | | | | [id number] | | Gianluca Robbins MD at [facility] | | | | | | [address] | | [facility] | | | | | [...] [address] | [place] | [phone] | | [facility] | | [address] | | + + + + + [...] + | REFERENCE LAB | [address] [place] | [place] | [phone] | | [facility] | | [address] | | + + + + + [...] + + + | REFERENCE LAB | [facility] | [place] | [phone] | | [facility] | | [address] | | + + + + + [...] LAB | [address] [facility] | [place] | [phone] | | [facility] | | [address] | | + + + + + [...] LAB | [address] [facility] | [place] | [phone] | | [facility] | | [address] | | + + + + + [...] + + + | REFERENCE LAB | [address] [facility] | [place] | [phone] | | [place] | | [address] | | + + + + + [...] +--------+ +---------+--------+ | MEDICARE | MEDICA | [id number] | | [phone] | | Medica | | | RE | | 012-Pr | 5 | | re | | | PART A | | esent | | | | | | AND B | | | | | | + +--------+ +--------+ +---------+--------+ | VETERANS ADMIN | VETERA | [id number] | | | | Indemn | | | NS | | 018-Pr | | | ity | | | ADMIN | | esent | | | | | | [place] | | | | | | | | [place] | | | | | | + +--------+ +--------+ +---------+--------+ | MEDICARE | MEDICA | [id number] | | [phone] | | Medica | | | RE | | 012-Pr | 5 | | re | | | PART A | | esent | | | | | | AND B | | | | | | + +--------+ +--------+ +---------+--------+ | MEDICARE | MEDICA | [id number] | | [phone] | | Medica | | | RE | | 012-Pr | 5 | | re | | | PART A | | esent | | | | | | AND B | | | | | | + +--------+ +--------+ +---------+--------+ | | TRICAR | [id number] | | [phone] | | Indemn | | | E [...] Person | Self | [birth year] | [address] | | | al/Fam | | 1945 | [phone] | [place] | | | carlos | | | 2 (Home) | [address] | + +--------+ +--------+ + + | Reagan Shepard | Person | Self | [birth year] | [address] | | | al/Fam | | 1945 | [phone] | [place] | | | carlos | | | 2 (Home) | [address] | + +--------+ +--------+ + + | Reagan Sehpard | Person | Self | [birth year] | | [address] | | | al/Fam | | 1945 | [phone] | [place] | | | carlos | | | 2 (Home) | [address] | + +--------+ +--------+ + + Advance Directives + + + + + | Type | Date Recorded | Patient | Explanation | | | | Alumni Secretary | | + + + + + | Power of | | | | | Credit Risk Associate | | | | + + + [...]
--- OUTSIDE RECORDS SUMMARY | ~2019-08-08 | XMS | Encounter Summary ---
Demographics + + + | Address | [address] | | | [place] [address] | + + + | Home Phone [...] + | Jessica Shepard | ECON | [address] | | | | | [place] | | | | | [address] | | + + + + + | Bel Solis | ECON | Unknown | | + + + + + Care Team Providers + +------+ + | Care Purse Framer Name | Role | Phone | + +------+ + | Dian Lr NP | PCP | | + +------+ + Encounter Details +--------+ + + + + | Date | Type | Department | Care Team | Description | +--------+ + + + + | 07/21/ | Orders Only | [facility] | Conversion | | | 2019 | | INFECTIOUS DISEASE | Transaction, | | | | | [address] | Provider Unknown | | | | | [place], [place] | | | | | | [address] | (Fax) | | | | | [phone] | | | +--------+ + + + [...]
--- OUTSIDE RECORDS SUMMARY | ~2019-08-08 | XMS | Encounter Summary ---
Demographics + + + | Address | [address] | | | [place] [address] | + + + | Home Phone [...] + | Jessica Shepard | ECON | [address] | | | | | [place] | | | | | [address] | | + + + + + | Bel Solis | ECON | Unknown | | + + + + + Care Team Providers + +------+ + | Care Hat Sizer Name | Role | Phone | + [...] + + | 11/19/ | Hospital | [facility] | Jurgen Casiano | [place], [place] | | 2018 - | Encounter | [facility] | MD Shayne [address] | encounter (Primary | | | | [address] [place] | [address] [place] | Dx); Fever, | | 11/25/ | | [place] [address] | [place] [address] | unspecified fever | | 2017 | | [phone] | [phone] | cause; Pneumonia due | | | | | | to infectious | | | | | Gray Perea MD | organism, | | | | | [address] | unspecified | | | | | [place], [place] | laterality, | | | | | [id number] | unspecified part of | | | | | | lung; Sepsis, due to | | | | | Mil Sandoval MD | unspecified | | | | | [address] | organism (HCC); | | | | | [place] | Insulin dependent | | | | | [address] | diabetes mellitus | | | | | | ([facility]); Other chronic | | | | | | osteomyelitis of | | | | | | right foot ([facility]); | | | | | | Peripheral vascular | | | | | | disease ([facility]) | [...] other anesthesia was used during the case. [place] t lower extremity was then scrubbed, prepped [...] -PT/OT ordered Code Status: Full Code Disposition: [facility] Discharge Condition: Stable, very deconditioned and weak at baseline [place], no distress RRR, no m/r/g CTA bilaterally Soft, obese, NT Ext WWP, right foot ulcer with deep wound, slight purulent drainage Contact information for after-discharge care Placement Destination [facility] . Specialty: Half-Way Facility Contact information: [address] [facility] [address] Discharge Medications New Medications Details [...] might be different f rom the original. [facility]G Hospitalist Progress Note Reagan Shepard is [...] pantoprazole Mechanical fall -PT/OT ordered Disposition : [facility] as soon as 11/25 Prophylaxis : heparin [...] as outlined above. Justin Reyna 11/24/2017 18:16 [facility] Sang Duff MD - 11/24/2017 1:59 PM PDTWe are evaluating the patient for further medical rehabilitatio n services. He does not qualify per CMS guidelines for full inpatient rehab . I recommend he be transferred to SNF for further skilled therapies once he is cleared acute ly. Justin Rodriguez MD - 11/23/2017 2:24 PM PDT [facility] PMG Hospitalist Progress Note Reagan Shepard is [...] as outlined above. Justin Reyna 11/23/2017 14:24 [facility] orjuno, Simone VossARIM - 11/23/2017 [...] Value Units Date/Time Culture, Wound, Smear, w/Anaerobe [[id number]] Collected: 11/21/17 1208 Order Status: Sent Lab Status: In process Updated: 11/21/17 1250 Specimen: Tissue from Toe, Fifth/Small, Right Narrative: The following orders were created for panel order Culture, Wound, Smear, w/Anaerobe. Procedure Abnormality Status --------- ------ Culture, Wound, Smear[[id number]] In process Culture, Anaerobic[[id number]] In process Please view results for these tests on the individual orders. Culture, Wound, Smear [[id number]] Collected: 11/21/171207 Order Status: Sent Lab Status: In process Updated: 11/21/17 1250 Specimen: Tissue from Toe, Fifth/Small, Right Culture, Anaerobic [[id number]] Collected: 11/21/171207 Order Status: Sent Lab Status: [...] Simone Aceves DPM 13:58; 11/23/2017 Irasema Dominguez, Dairy Worker - 11/23/2017 9:43 AM PDT PHARMACY SERVICES: [...] and directions X Pharmacy list names: [facility] X [employer] insurance reported information X [...] Prior to Admission Sig: Patient taking differently [employer] as: Hydrocodone-acetaminophen 10-325 mg Take one tablet by mouth four times daily as needed fo r pain Patient taking 1 tablet three times daily as a scheduled dose Best possible [place] [place] medication list after pharmacy review: PT REPORTED [...] performed and electronically signed by Blanquita Bertrand, Door Opener 11/22/2017 8:38 Electronically signed by: Irasema Moyer, Dairy Worker 11/23/2017 9:43 Justin Rodriguez MD - 11/22/2017 5:22 PM PDT [facility] PMG Hospitalist Progress Note Reagan Shepard is [...] as outlined above. Justin Reyna 11/22/2017 17:40 [facility] anielle Guillermo, Smoking Pipe Maker - 11/22/2017 2:13 PM PDTFormatting of this [...] cerebral hemisphere; Diabetes mellitus (HCC); Stroke (cerebrum) ([facility]); an d TBI (traumatic brain injury) ([facility]). No risk factors for MDR [...] Value Units Date/Time Culture, Wound, Smear, w/Anaerobe [[id number]] Collected: 11/21/17 1208 Order Status: Sent Lab Status: In process Updated: 11/21/17 1250 Specimen: Tissue from Toe, Fifth/Small, Right Narrative: The following orders were created for panel order Culture, Wound, Smear, w/Anaerobe. Procedure Abnormality Status --------- ------ Culture, Wound, Smear[[id number]] Preliminary result Culture, Anaerobic[[id number]] In process Please view results for these tests on the individual orders. Culture, Wound, Smear [[id number]] Collected: 11/21/17 1208 Order Status: Completed Lab Status: Preliminary result Updated: 11/22/17 1021 Specimen: Tissue from Toe, Fifth/Small, Right Culture 2+ Lactose Fermenting Gram Negative Bacilli Comment: Identification and susceptibility to follow. Gram Stain Result 2+ White Blood Cells 1+ Epithelial cells 2+ Gram negative rods Culture, Anaerobic [[id number]] Collected: 11/21/17 1208 Order Status: Sent Lab Status: In process Updated: 11/21/17 1250 Specimen: Tissue from Toe, Fifth/Small, Right Respiratory Virus Panel, NAAT [[id number]] Collected: 11/20/17 1257 Order Status: Completed Lab [...] pneumoniae DNA Not Detected Narrative: Performed at: [address] [place] [id number] In Tube Conversion Technician: Jurgen Costa MD, Phone: [phone] Culture, Wound, Smear [[id number]] (Susceptibility) Collected: 11/20/17 0825 Order Status: Completed [...] Sulfamethoxazole <=20 ug/mL Sensitive Culture, Wound, Smear [[id number]] (Susceptibility) Collected: 11/19/172030 Order Status: Completed Lab [...] no longer reported. Culture, Respiratory, Lower, Smear [[id number]] Order Status: Sent Lab Status: No result Specimen: Body Fluid from Sputum, Expectorated Culture, Wound, Smear [[id number]] Order Status: Canceled Lab Status: No result Specimen: Tissue from Leg, Left Culture, Blood [[id number]] (Normal) Collected: 11/19/17 1537 Order Status: Completed Lab Status: Preliminary result Updated: 11/20/17 0351 Specimen: Blood from Peripheral Blood Culture No growth: Monitored continually by instrument for 5 days Culture, Blood [[id number]] (Normal) Collected: 11/19/17 1506 Order Status: Completed Lab Status: Preliminary result Updated: 11/20/17 0321 Specimen: Blood from Peripheral Blood Culture No growth: Monitored continually by instrument for 5 days Culture, Urine [[id number]] Collected: 11/19/17 1416 Order Status: Completed Lab [...] Monitoring Protocol Electronically signed by: Danielle Guillermo, Smoking Pipe Maker 11/22/2017 14:13 Associated attestation - Luther Hampton [...] Simone Shepard Age/Gender 72 y.o. male Location [place] [...] Value Units Date/Time Culture, Wound, Smear, w/Anaerobe [[id number]] Collected: 11/21/171207 Order Status: Sent Lab Status: In process Updated: 11/21/17 1250 Specimen: Tissue from Toe, Fifth/Small, Right Narrative: The following orders were created for panel order Culture, Wound, Smear, w/Anaerobe. Procedure Abnormality Status --------- ------ Culture, Wound, Smear[[id number]] In process Culture, Anaerobic[[id number]] In process Please view results for these tests on the individual orders. Culture, Wound, Smear [[id number]] Collected: 11/21/171207 Order Status: Sent Lab Status: In process Updated: 11/21/17 1250 Specimen: Tissue from Toe, Fifth/Small, Right Culture, Anaerobic [[id number]] Collected: 09/03/18 1208 Order Status: Sent Lab [...] cerebral hemisphere; Diabetes mellitus (HCC); Stroke (cerebrum) ([facility]); an d TBI (traumatic brain injury) ([facility]). . No risk factors for [...] Value Units Date/Time Culture, Wound, Smear, w/Anaerobe [[id number]] Collected: 11/21/17 1208 Order Status: Sent Lab Status: In process Updated: 11/21/17 1250 Specimen: Tissue from Toe, Fifth/Small, Right Narrative: The following orders were created for panel order Culture, Wound, Smear, w/Anaerobe. Procedure Abnormality Status --------- ------ Culture, Wound, Smear[[id number]] In process Culture, Anaerobic[[id number]] In process Please view results for these tests on the individual orders. Culture, Wound, Smear [[id number]] Collected: 11/21/17 1208 Order Status: Sent Lab Status: In process Updated: 11/21/17 1250 Specimen: Tissue from Toe, Fifth/Small, Right Culture, Anaerobic [[id number]] Collected: 11/21/17 1208 Order Status: Sent Lab Status: In process Updated: 11/21/17 1250 Specimen: Tissue from Toe, Fifth/Small, Right Respiratory Virus Panel, NAAT [[id number]] Collected: 11/20/17 1257 Order Status: Sent Lab Status: In process Updated: 11/20/17 1302 Specimen: Tissue from Nasopharynx Culture, Wound, Smear [[id number]] Collected: 11/20/17 0825 Order Status: Completed Lab Status: Preliminary result Updated: 11/21/17 0739 Specimen: Tissue from Foot, Right Culture 1+ Gram Negative Jayesh, NOT Pseudomonas Comment: Identification and susceptibility to follow. 1+ Gram Positive Cocci Comment: Isolating for additional information. Gram Stain Result 1+ White Blood Cells No organisms seen Culture, Wound, Smear [[id number]] (Susceptibility) Collected: 11/19/17 203 Order Status: Completed [...] <=20 ug/mL Sensitive Culture, Respiratory, Lower, Smear [[id number]] Order Status: Sent Lab Status: No result Specimen: Body Fluid from Sputum, Expectorated Culture, Wound, Smear [[id number]] Order Status: Canceled Lab Status: No result Specimen: Tissue from Leg, Left Culture, Blood [[id number]] (Normal) Collected: 11/19/17 1537 Order Status: Completed Lab Status: Preliminary result Updated: 11/20/17 0351 Specimen: Blood from Peripheral Blood Culture No growth: Monitored continually by instrument for 5 days Culture, Blood [[id number]] (Normal) Collected: 11/19/17 1506 Order Status: Completed Lab Status: Preliminary result Updated: 11/20/17 0321 Specimen: Blood from Peripheral Blood Culture No growth: Monitored continually by instrument for 5 days Culture, Urine [[id number]] Collected: 11/19/17 1416 Order Status: Completed Lab [...] Hoff MD - 11/21/2017 11:05 AM PDT [place] HOSPITALIST PROGRESS NOTE Patient: Reagan Shepard : 1945: Age: 72 y.o. MedRec: [id number] Admission date: 11/19/2017 Hospital day # : [...] E' Septal Velocity 4.79 cm/s MV Deceleration [place] 336.24 cm/s2 MV Deceleration Time 332.96 msec [...] Value Units Date/Time Respiratory Virus Panel, NAAT [[id number]] Collected: 11/20/17 1257 Order Status: Sent Lab Status: In process Updated: 11/20/17 1302 Specimen: Tissue from Nasopharynx Culture, Wound, Smear [[id number]] Collected: 11/20/17 0825 Order Status: Completed Lab Status: Preliminary result Updated: 11/21/17 0739 Specimen: Tissue from Foot, Right Culture 1+ Gram Negative Jayesh, NOT Pseudomonas Comment: Identification and susceptibility to follow. 1+ Gram Positive Cocci Comment: Isolating for additional information. Gram Stain Result 1+ White Blood Cells No organisms seen Culture, Wound, Smear [[id number]] (Susceptibility) Collected: 11/19/172030 Order Status: Completed Lab [...] + Sulfamethoxazole <=20 ug/mL Sensitive Culture, Blood [[id number]] (Normal) Collected: 11/19/17 1537 Order Status: Completed Lab Status: Preliminary result Updated: 11/20/17 0351 Specimen: Blood from Peripheral Blood Culture No growth: Monitored continually by instrument for 5 days Culture, Blood [[id number]] (Normal) Collected: 11/19/17 1506 Order Status: Completed Lab Status: Preliminary result Updated: 11/20/17 0321 Specimen: Blood from Peripheral Blood Culture No growth: Monitored continually by instrument for 5 days Culture, Urine [[id number]] Collected: 11/19/17 1416 Order Status: Completed Lab [...] Other Pharmacy Consult Nasim Jimenez 11/21/2017 11:05 [facility] Nasim Hoff MD - 11/20/2017 10:04 AM PDT [facility] [place] HOSPITALIST PROGRESS NOTE Patient: Reagan Shepard : 1945: Age: 72 y.o. MedRec: [id number] Admission date: 11/19/2017 Hospital day # : [...] PH UA 5.0 5.0 - 8.0 Specific [place] 1.017 1.001 - 1.030 PROTEIN UA 30 [...] Component Value Units Date/Time Culture, Wound, Smear [[id number]] Collected: 11/20/17824 Order Status: Sent Lab Status: In process Updated: 11/20/17828 Specimen: Tissue from Foot, Right Culture, Wound, Smear [[id number]] Collected: 11/19/172030 Order Status: Completed Lab Status: Preliminary result Updated: 11/20/17899 Specimen: Tissue from Leg, Lower, Right Culture 2+ Gram Negative Jayesh, NOT Pseudomonas Comment: Identification and susceptibility to follow. 1+ Gram Positive Cocci Comment: Isolating for additional information. Gram Stain Result No white blood cells (PMNs) seen 1+ Gram negative rods Culture, Blood [[id number]] (Normal) Collected: 11/19/17 1537 Order Status: Completed Lab Status: Preliminary result Updated: 11/20/17 0351 Specimen: Blood from Peripheral Blood Culture No growth: Monitored continually by instrument for 5 days Culture, Blood [[id number]] (Normal) Collected: 11/19/17 1506 Order Status: Completed Lab Status: Preliminary result Updated: 11/20/17 0321 Specimen: Blood from Peripheral Blood Culture No growth: Monitored continually by instrument for 5 days Culture, Urine [[id number]] (Normal) Collected: 11/19/17 1416 Order Status: Completed [...] Other Pharmacy Consult Nasim Jimenez 11/20/2017 10:05 [facility] Khadra Mac Phar mD - [...] (HCC); an d TBI (traumatic brain injury) ([facility]). . No risk factors for [...] Component Value Units Date/Time Culture, Wound, Smear [[id number]] Collected: 11/20/17 0825 Order Status: Sent Lab Status: In process Updated: 11/20/17828 Specimen: Tissue from Foot, Right Culture, Wound, Smear [[id number]] Collected: 11/19/172030 Order Status: Completed Lab Status: Preliminary result Updated: 11/20/17 09 Specimen: Tissue from Leg, Lower, Right Culture 2+ Gram Negative Jayesh, NOT Pseudomonas Comment: Identification and susceptibility to follow. 1+ Gram Positive Cocci Comment: Isolating for additional information. Gram Stain Result No white blood cells (PMNs) seen 1+ Gram negative rods Culture, Respiratory, Lower, Smear [[id number]] Order Status: Sent Lab Status: No result Specimen: Body Fluid from Sputum, Expectorated Culture, Wound, Smear [[id number]] Order Status: Canceled Lab Status: No result Specimen: Tissue from Leg, Left Culture, Blood [[id number]] (Normal) Collected: 11/19/17 1537 Order Status: Completed Lab Status: Preliminary result Updated: 11/20/17 0351 Specimen: Blood from Peripheral Blood Culture No growth: Monitored continually by instrument for 5 days Culture, Blood [[id number]] (Normal) Collected: 11/19/17 1506 Order Status: Completed Lab Status: Preliminary result Updated: 11/20/17 0321 Specimen: Blood from Peripheral Blood Culture No growth: Monitored continually by instrument for 5 days Culture, Urine [[id number]] (Normal) Collected: 11/19/17 1416 Order Status: Completed [...] cerebral hemisphere; Diabetes mellitus (HCC); Stroke (cerebrum) ([facility]); an d TBI (traumatic brain injury) ([facility]). . No risk factors for [...] Value Units Date/Time Culture, Respiratory, Lower, Smear [[id number]] Order Status: Sent Lab Status: No result Specimen: Body Fluid from Sputum, Expectorated Culture, Wound, Smear [[id number]] Order Status: Sent Lab Status: No result Specimen: Tissue from Leg, Left Culture, Blood [[id number]] Collected: 11/19/17 1537 Order Status: Sent Lab Status: In process Updated: 11/19/17 1543 Specimen: Blood from Peripheral Blood Culture, Blood [[id number]] Collected: 11/19/17 1506 Order Status: Sent Lab Status: In process Updated: 11/19/17 1511 Specimen: Blood from Peripheral Blood Culture, Urine [[id number]] Collected: 11/19/17 1416 Order Status: Sent Lab [...] K?MRN: | | | | | | [id number] | | | [id number] | | | his | | | [...] | | | ent/06 | | | [id number] | | | -9b07- | | | [...] | | | St. | | | [place] | | | y H. | | [...] | | | St. | | | [place] | | | y | | | [...] + | [facility] | [address] | [place] | [phone] | | [facility] | | [address] | | | - LABORATORY | | [...] [address] | [place] | [phone] | | [facility] | | [address] | | | - LABORATORY | | [...] [address] | [place] | [phone] | | [facility] | | [address] | | | - LABORATORY | | [...] 15 | 7 - 18 mg/dL | [facility] | | | | | | [facility] | | | | | | MEDICAL | | | | | | CENTER - | | | | | | LABORATORY | | + + + + + + | Creatinine | 0.91 | 0.60 - 1.30 | [facility] | | | | | mg/dL | [facility] | | | | | | MEDICAL | | | | | | CENTER - | | | | | | LABORATORY | | + + + + + + | eGFR if not | >60Comment: GLOMERULAR | >=60 | [facility] | | | | FILTRATION | mL/min/1.73m2 | [facility] | | | [place] | RATE,ESTIMATED | | MEDICAL | | | | mL/min/1.95g5Kqsg than | | CENTER - | | [...] + | [facility] | [address] | [place] | [phone] | | [facility] | | [address] | | | - LABORATORY | | [...] + | [facility] | [address] | [place], [place] | [phone] | | [facility] | | [address] | | | - LABORATORY | | [...] [address] | [place] | [phone] | | [facility] | | [address] | | | - LABORATORY | | [...] [address] | [place] | [phone] | | [facility] | | [address] | | | - LABORATORY | | [...] [address] | [place] | [phone] | | [facility] | | [address] | | | - LABORATORY | | [...] [address] | [place] | [phone] | | [facility] | | [address] | | | - LABORATORY | | [...] | 0.91 | 0.60 - 1.30 | [facility] | | | | | mg/dL | [facility] | | | | | | MEDICAL | | | | | | CENTER - | | | | | | LABORATORY | | + + + + + + | eGFR if not | >60Comment: GLOMERULAR | >=60 | [facility] | | | | FILTRATION | mL/min/1.73m2 | [facility] | | | [place] | RATE,ESTIMATED | | MEDICAL | | | | mL/min/1.69b1Xgkb than | | CENTER - | | [...] + | [facility] | [address] | [place] | [phone] | | [facility] | | [address] | | | - LABORATORY | | [...] + | [facility] | [address] | [place] | [phone] | | [facility] | | [address] | | | - LABORATORY | | [...] [address] | [place] | [phone] | | [facility] | | [address] | | | - [...] [address] | [place] | [phone] | | [facility] | | [address] | | | - LABORATORY | | [...] | + + + + + | [facility] | [address] | [place] | [phone] | | [facility] | | [address] | | | - LABORATORY | | [...] ST. | [address] | [place] | [phone] | | [facility] | | [address] | | | - LABORATORY | | [...] [address] | [place] | [phone] | | [facility] | | [address] | | | - LABORATORY | | [...] | 0.87 | 0.60 - 1.30 | [facility] | | | | | mg/dL | [facility] | | | | | | MEDICAL | | | | | | CENTER - | | | | | | LABORATORY | | + + + + + + | eGFR if not | >60Comment: GLOMERULAR | >=60 | [facility] | | | | FILTRATION | mL/min/1.73m2 | [facility] | | | [place] | RATE,ESTIMATED | | MEDICAL | | | | mL/min/1.32p7Zrqt than | | CENTER - | | [...] + | [facility] | [address] | [place] | [phone] | | [facility] | | [address] | | | - LABORATORY | | [address] | [place] | [phone] | | [facility] | | [address] | | | - LABORATORY | | [...] [address] | [place] | [phone] | | [facility] | | [address] | | | - LABORATORY | | [...] + | [facility] | [address] | [place] | [phone] | | [facility] | | [address] | | | - LABORATORY | | [...] + | [facility] | [address] | [place] | [phone] | | [facility] | | [address] | | | - LABORATORY | | [...] [address] | [place] | [phone] | | [facility] | | [address] | | | - LABORATORY | | [...] [address] | [place] | [phone] | | [facility] | | [address] | | | - LABORATORY | | [...] [address] | [place] | [phone] | | [facility] | | [address] | | | - LABORATORY | | [...] + | [facility] | [address] | [place] | [phone] | | [facility] | | [address] | | | - LABORATORY | | [...] mL/min/1.73m2 | [facility] | | | [place] | RATE,ESTIMATED | | MEDICAL | | | | mL/min/1.11e1Csmb than | | CENTER - | | [...] [address] | [place] | [phone] | | [facility] | | [address] | | | - LABORATORY | | [...] [address] | [place] | [phone] | | [facility] | | [address] | | | - LABORATORY | | [...] + | [facility] | [address] | [place] | [phone] | | [facility] | | [address] | | | - LABORATORY | | [...] [address] | [place] | [phone] | | [facility] | | [address] | | | - LABORATORY | | [...] [address] | [place] | [phone] | | [facility] | | [address] | | | - LABORATORY | | [...] | | | | aerogenesComment: | | [facility] | | | | [...] [address] | [place] | [phone] | | [facility] | | [address] | | | - LABORATORY | | [...] + | [facility] | [address] | [place] | [phone] | | [facility] | | [address] | | | - LABORATORY | | [...] [address] | [place] | [phone] | | [facility] | | [address] | | | - LABORATORY | | [...] [address] | [place] | [phone] | | [facility] | | [address] | | | - LABORATORY | | [...] [address] | [place] | [phone] | | [facility] | | [address] | | | - LABORATORY | | [...] [address] | [place] | [phone] | | [facility] | | [address] | | | - LABORATORY | | [...] [address] | [place] | [phone] | | [facility] | | [address] | | | - LABORATORY | | [...] + | [facility] | [address] | [place] | [phone] | | [facility] | | [address] | | | - LABORATORY | | [...] | Lymphocytes | | K/uL | [facility] | | | | | | [...] 0.20 (H) | 0.00 - 0.10 | [facility] | | | Basophils | | K/uL [...] + + + + + | [facility] | [address] | [place] | [phone] | | [facility] | | [address] | | | - LABORATORY | | [...] 14 | 7 - 18 mg/dL | [facility] | | | | | | [facility] | | | | | | MEDICAL | | | | | | CENTER - | | | | | | LABORATORY | | + + + + + + | Creatinine | 1.02 | 0.60 - 1.30 | [facility] | | | | | mg/dL | [facility] | | | | | | MEDICAL | | | | | | CENTER - | | | | | | LABORATORY | | + + + + + + | eGFR if not | >60Comment: GLOMERULAR | >=60 | [facility] | | | | FILTRATION | mL/min/1.73m2 | [facility] | | | [place] | RATE,ESTIMATED | | MEDICAL | | | | mL/min/1.08z1Gumg than | | CENTER - | | [...] + | [facility] | [address] | [place] | [phone] | | [facility] | | [address] | | | - LABORATORY | | [...] [address] | [place] | [phone] | | [facility] | | [address] | | | - LABORATORY | | [...] ST. | [address] [address] | [place] | [phone] | | [facility] | | [address] | | | - LABORATORY | | [...] | | chronic inflammation suggestive of osteomyelitis. JVR:[facility]:C2NR | | | MICROSCOPIC [...] decalcified in decal | | | STAT).. am:AMB:[facility] PERFORMING LABORATORY: The technical | | | component was performed by [facility], [address] [place] [address] | | | [place] [address] (Hospital Corpsman: Khadra Gill MD; CLIA# | | | [id number]). Professional interpretation was performed by [facility] | [facility], [address] | | | [place] [address] (Hospital Corpsman: Ambrosio | | | [place]). Diagnostician: [...] [address] | [place] | [phone] | | [facility] | | [address] | | | - LABORATORY | | [...] | | | | | | n [place] | | | | | + +---------+ [...] ST. | [address] | [place] | [phone] | | [facility] | | [address] | | | - LABORATORY | | [...] + | Performed at: 01 - [place] [address], | REFERENCE LAB | | [place], [place] [id number] In Tube Conversion Technician: Jurgen Costa MD, Phone: | NIKKI - BKElba | | [phone] | | + + + + + + + + | Performing | Address | City/State/Zipcode | Phone Number | | Organization | | | | + + + + + | REFERENCE LAB | [address] | [place], [place] | [phone] | | [facility] | [address] | [address] | | + + + + + [...] + | [facility] | [address] | [place] | [phone] | | [facility] | | [address] | | | - LABORATORY | | [...] [address] | [place] | [phone] | | [facility] | | [address] | | | - LABORATORY | | [...] + | [facility] | [address] | [place] | [phone] | | [facility] | | [address] | | | - LABORATORY | | [...] + | [address] | [address] | [place] | [phone] | | [facility] | | [address] | | | - LABORATORY | | [...] [address] | [place] | [phone] | | [facility] | | [address] | | | - LABORATORY | | [...] [address] | [place] | [phone] | | [facility] | | [address] | | | - LABORATORY | | [...] [address] | [place] | [phone] | | [facility] | | [address] | | | - LABORATORY | | [...] + | [facility] | [address] | [place], [place] | [phone] | | [facility] | | [address] | | | - LABORATORY | | [...] [address] | [place] | [phone] | | [facility] | | [address] | | | - LABORATORY | | [...] 15 | 7 - 18 mg/dL | [facility] | | | | | | [facility] | | | | | | MEDICAL | | | | | | CENTER - | | | | | | LABORATORY | | + + + + + + | Creatinine | 0.91 | 0.60 - 1.30 | [facility] | | | | | mg/dL | [facility] | | | | | | MEDICAL | | | | | | CENTER - | | | | | | LABORATORY | | + + + + + + | eGFR if not | >60Comment: GLOMERULAR | >=60 | [facility] | | | | FILTRATION | mL/min/1.73m2 | [facility] | | | [place] | RATE,ESTIMATED | | MEDICAL | | | | mL/min/1.01l9Bini than | | CENTER - | | [...] + | [facility] | [address] | [place] | [phone] | | [facility] | | [address] | | | - LABORATORY | | [...] [address] | [place] | [phone] | | [facility] | | [address] | | | - LABORATORY | | [...] [address] | [place] | [phone] | | [facility] | | [address] | | | - LABORATORY | | [...] [address] | [place] | [phone] | | [facility] | | [address] | | | - LABORATORY | | [...] + | [address] | [address] | [place] | [phone] | | [facility] | | [address] | | | - LABORATORY | | [...] [address] | [place] | [phone] | | [facility] | | [address] | | | - LABORATORY | | [...] [address] | [place] | [phone] | | [facility] | | [address] | | | - LABORATORY | | [...] + | [facility] | [address] | [place] | [phone] | | [facility] | | [address] | | | - LABORATORY | | [...] [address] | [place] | [phone] | | [facility] | | [address] | | | - LABORATORY | | [...] | | | | | mg/dL | [facility] | | | | | | MEDICAL | | | | | | CENTER - | | | | | | LABORATORY | | + + + + + + | eGFR if not | >60Comment: GLOMERULAR | >=60 | [facility] | | | | FILTRATION | mL/min/1.73m2 | [facility] | | | [place] | RATE,ESTIMATED | | MEDICAL | | | | mL/min/1.17x0Bvyq than | | CENTER - | | [...] | | | | | mg/dL | [facility] | | | | [...] [address] | [place] | [phone] | | [facility] | | [address] | | | - LABORATORY | | [...] [address] | [place] | [phone] | | [facility] | | [address] | | | - LABORATORY | | [...] | REFERENCE | | | | of [place] | | LAB [facility] | | | | standards require a | | - [facility] | | | | culture to beperformed | | | | | | on CSF specimens | | | | | | submitted for bacterial | | | | | | antigen testing.(CAP | | | | | | [email or web address]) Urine | | | | | | specimens will not be | | | | | | cultured. | | | | + + + + + + + + | Specimen | + + | Urine | + + + + + | Narrative | Performed At | + + + | Performed at: 01 - [facility] [place] [address] [place] [address], | REFERENCE LAB | | [place], [place] [id number] In Tube Conversion Technician: Christ Deal MD, Phone: | NIKKI - NICOLÁS | | [phone] | | + + + + + + + + | Performing | Address | City/State/Zipcode | Phone Number | | Organization | | | | + + + + + | REFERENCE LAB | [address] | [place], [place] | [phone] | | [facility] | [facility] | [address] | | + + + + + [...] + | [address] [facility] | [address] | [place] | [phone] | | [facility] | | [address] | | | - LABORATORY | | [...] - 1.030 | [facility] | | | [place], | | | [facility] | | [...] [address] | [place] | [phone] | | [facility] | | [address] | | | - LABORATORY | | [...] | | | | | | use Olema 10/325 if ordered. If | | | [...] | | | | last modification) on [facility] 11/24/17 | | | | | [...] | | | | | | | 9269-6143 Use NIGHT DOSE for | | | | | | | doses scheduled: HS, 3AM, | | | | | | | Nighttime 1477-3453, | | | | | | + [...] scheduled: AC, NPO, Daytime | | | 7439-1724 Use NIGHT DOSE for | | | doses scheduled: HS, 3AM, | | | Nighttime 1043-0302, | | + +---+ | | | [...] | | | | | | | 8564-2515 Use NIGHT DOSE for | | | | | | | doses scheduled: HS, 3AM, | | | | | | | Nighttime 2314-2062, | | | | | | + [...] | | | | | Subcutaneous, ONCE, [facility] 11/24/17 at | | | | [...]
--- OUTSIDE RECORDS SUMMARY | ~2019-08-08 | XMS | Encounter Summary ---
Demographics + + + | Address | [address] | | | [place] [address] | + + + | Home Phone [...] + | Jessica Shepard | ECON | [address] | | | | | [place] | | | | | [address] | | + + + + + | Bel Solis | ECON | Unknown | | + + + + + Care Team Providers + +------+ + | Care Furniture Inspector Name | Role | Phone | + +------+ + | Dian Lr NP | PCP | | + +------+ + Encounter Details +--------+ + + + + | Date | Type | Department | Care Team | Description | +--------+ + + + + | 05/14/ | Hospital | [facility] | Conversion | Pain | | 2017 | Encounter | CONVERSION DEP [address] | Transaction, | | | | | [address] | Provider Unknown | | | | | [place] | [phone] | | | | | [address] | | | | | | [phone] | | | +--------+ + + + [...]
--- OUTSIDE RECORDS SUMMARY | ~2019-08-08 | XMS | Encounter Summary ---
Demographics + + + | Address | [address] | | | [place] [address] | + + + | Home Phone [...] + | Jessica Shepard | ECON | [phone] | | | | | [place] | | | | | [address] | | + + + + + | Bel Solis | ECON | Unknown | | + + + + + Care Team Providers + +------+ + | Care Arcade Games Mechanic Name | Role | Phone | + +------+ + | Dian Lr NP | PCP | | + +------+ + Encounter Details +--------+ + + + + | Date | Type | Department | Care Team | Description | +--------+ + + + + | 11/26/ | Hospital | [facility] | Diana Toby | | | 2018 | Encounter | MED CTR XRAY [address] | [address] | | | | | [place] | [facility] | | | | | [place] [address] | [place] [address] | | | | | [phone] | [phone] | | | | | | | [...]
--- OUTSIDE RECORDS SUMMARY | ~2019-08-08 | XMS | Encounter Summary ---
Demographics + + + | Address | [address] | | | [place] [address] | + + + | Home Phone [...] + | Jessica Shepard | ECON | [address] | | | | | [place] | | | | | [address] | | + + + + + | Bel Solis | ECON | Unknown | | + + + + + Care Team Providers + +------+ + | Care Architectural Renderer Name | Role | Phone | + +------+ + PCP | Unavailable | + +------+ + Encounter Details +--------+ + + + + | Date | Type | Department | Care Team | Description | +--------+ + + + + | 04/16/ | Hospital | [facility] | Dian Lr NP | | | 2011 | Encounter | MED CTR XRAY [address] | [address] | | | | | [place] | [place] [address] | | | | | [place] [address] | [phone] | | | | | [phone] | | | +--------+ + + + [...] + + + | [facility] | [facility] | | [address] [facility] | [facility] | | BONE DENSITY [...] Transcribed Date/Time: | | | 04/16/2011 14:14 Stack Attendant: <Electronically Signed | | | by David Guillermo MD> 04/16/11 1459 | | + + + + + | Procedure Note | + + | Johnson, Rad Conversion - 04/27/2013 4:38 PM [facility] | | Diagnostic Imaging Department [address] [place] [address] | | BONE DENSITY TESTIN04/16/2011 CLINICAL HISTORY: [...] 13:48 | |Transcribed Date/Time: 04/16/2011 14:14 | |Stack Attendant: | |<Electronically Signed by David Guillermo MD> [...]
--- OUTSIDE RECORDS SUMMARY | ~2019-08-08 | XMS | Encounter Summary ---
Demographics + + + | Address | [address] | | | [place] [address] | + + + | Home Phone [...] + | Jessica Amezquita | ECON | [address] | | | | | [place] | | | | | [address] | | + + + + + | Bel Solis | ECON | Unknown | | + + + + + Care Team Providers + +------+ + | Care Jack Strip Assembler Name | Role | Phone | + +------+ + | Dian Lr NP | PCP | | + +------+ + Encounter Details +--------+ + + + + | Date | Type | Department | Care Team | Description | +--------+ + + + + | 05/14/ | Hospital | [facility] | Marlin Mckeon | Received intravenous | | 2017 - | Encounter | [facility] | MD [place] [address] | tissue plasminogen | | | | CARE FLOOR [address] [place], [place] | activator (tPA) in | | 05/19/ | | [facility] | [id number] | emergency | | 2017 | | [place], [place] | | department; Acute | | | | [address] | | left hemiparesis | | | | [phone] | | ([facility]); 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 | | | | | | with hyperglycemia, | | | | | | with long-term | | | | | | current use of | | | | | | insulin ([facility]); | | | | | | Ischemic stroke | | | | | | diagnosed during | | | | | | current admission | | | | | | ([facility]); 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, with | | | | | | long-term current | | | | | | use of insulin | | | | | | ([facility]); Moderate | | | | | | protein-calorie | | | | | | malnutrition ([facility]); | | | | | | Gastroesophageal [...] Date of Service: 05/19/16 105 Status: Signed Last Puller: Jeff Corley DO (Physician) [facility] Service: Hospitalist Discharge Summary Date of [...] edema Skin - dry no erythema Disposition: long term Condition: Stable Code Status: [...] Tolerated Follow up: Saurabh Fritz DO [address] [address] Medication List START taking these medications atorvastatin [...] Date of Service: 05/19/16 1231 Status: Signed Last Puller: Sandra Cedillo RN (Registered Nurse) Report given to ELLIOT Márquez at [facility]. Pt aware of transfer plan. Facility van to pick pt up at 1300. onver elder Transaction, Provider Unknown - 05/19/2016 11:41 AM PST Case Management by Lisa Hogan RN at 05/19/16 1141 Author: Lisa Hogan RN Service: (none) Author Type: Registered Nurse Filed: 05/19/16 1142 Date of Service: 05/19/16 1141 Status: Signed Last Puller: Lisa Hogan RN (Registered Nurse) 05/19/16 1128 Anticipated Disposition Facility Type correction facility Discharge Appointment Time 1300 Medicare Important Message (ROS) Given Detention Facility Other (comment) ([facility]) Disposition: [facility] Transportation: W/C van provided by facility All orders, signed AVS, and prescriptions have been faxed All DC paperwork completed Patient and family in agreement with discharge plan Medicare important message (Given or N/A): yes Tc to spouse Jessica who agrees with d/c plan to [facility]. Negar onver elder Transaction, Provider Unknown - 05/19/2016 11:40 AM PST Therapy Progress Note by Thersea Gonzales PT at 05/19/16 1140 Author: Theresa Gonzales PT Service: (none) Author Type: Physical Therapist Filed: 05/19/16 1140 Date of Service: 05/19/16 1140 Status: Signed Last Puller: Theresa Gonzales PT (Physical Therapist) 05/19/16 1139 [...] Author: HARIS Lemon Service: (none) Author Type: Loading Machine Operator Filed: 05/19/16 1114 Date of Service: 05/19/16 1102 Status: Signed Last Puller: HARIS Lemon (Loading Machine Operator) 05/19/16 1100 Discharge Planning Evaluation Admitting Diagnosis CVA, TPA given Anticipated Disposition Facility Type correction facility Detention Facility Other (comment) ([facility]) RETAIL REPRESENTATIVE p/c Cheryl Bashir [facility] [place], states she received phone call from [facility], asking for authorization. RETAIL REPRESENTATIVE assisted Pt and Pt (Jessica Devyn [phone]) regarding [facility] form, assisted with form and faxed to [facility] [place] - Cheryl Bashir [phone] ext. [phone]. During filli ng out [facility] form, Pt stated "We wanted [facility] over [facility], but we were told [facility] was denied by [place]." RETAIL REPRESENTATIVE provided choice of accepting facili ties. RETAIL REPRESENTATIVE p/c Carlos with [facility] states they will accept Pt, they are VA contracted, if Pt choice. RETAIL REPRESENTATIVE met with Negar ZARATE regarding the discrepancy of information about Pt choice. RETAIL REPRESENTATIVE with [facility] met with Pt and Pt (Jessica Amezquita) regarding choice, after lengthy discussion, they went back and forth regarding facilities, Pt finally chose [facility]. DCP: [facility] NAOMY BOGGSSTANLEY, Loading Machine Operator [phone] cell onver elder Transaction, Provider Unknown - 05/19/2016 8:06 AM PST Case Management by Lisa Hogan RN at 05/19/16 0806 Author: Lisa Hogan RN Service: (none) Author Type: Registered Nurse Filed: 05/19/161111 Date of Service: 05/19/16805 Status: Addendum Last Puller: Lisa Hogan RN (Registered Nurse) Related Notes: Original Note by Lisa Hogan RN (Registered Nurse) filed at 05/19/16 082 1 0800:Tc to Carlos at [facility]/[phone] re VA benefits and acceptance. Tc to Jessica, she states she rather have pt go to [facility] and not [facility]/. Went to meet with pt and he spoke to Jessica over the phone and agrees with going to [facility]. Tc to Jimmy at [facility], left [facility] re acceptance. 1030: per Jimmy, they can [...] Note by Hero You RN at 05/19/16 2927 Author: Hero You RN Service: (none) Author Type: Registered Nurse Filed: 05/19/16 0525 Date of Service: 05/19/16524 Status: Signed Last Puller: Hero You RN (Registered Nurse) No acute changes from previous end of shift report. Will continue monitoring. Hero You RN 05/19/2016 onver elder Transaction, Provider Unknown - 05/18/2016 6:32 PM PST Nurse Progress Note by Sandra Cedillo RN at 05/18/161831 Author: Sandra Cedillo RN Service: (none) Author Type: Registered Nurse Filed: 05/18/161833 Date of Service: 05/18/161831 Status: Signed Last Puller: Sandra Cedillo RN (Registered Nurse) Pt had [...] Date of Service: 05/18/16 1252 Status: Signed Last Puller: Jeff Corley DO (Physician) PROGRESS NOTE 05/18/2016 [...] Problem: Ischemic stroke diagnosed during current admission ([facility]) Active Problems: Received intravenous tissue plasminogen activator [...] had an extended conversation with c ase research and development manager about which SNF's/towns he liked and [...] Notes by Jenn Richey RD at 05/18/16 4348 Author: Jenn Richey RD Service: (none) Author Type: Registered Dietitian Filed: 05/18/16 1155 Date of Service: 05/18/16 1150 Status: Signed Last Puller: Jenn Richey RD (Registered Dietitian) 05/18/16 105 [...] Physical Findings Digestive System (Mouth to Rectum) DIRECTOR EQUIPMENT following for dysphagia Anthropometrics Weight change Wt [...] Date of Service: 05/18/16 1131 Status: Addendum Last Puller: Lisa Hogan RN (Registered Nurse) Related Notes: Original Note by Lisa Hogan RN (Registered Nurse) filed at 05/18/16 154 2 1000: Tc melyssa Olmedo([phone] ext [phone]) with VA "[facility]" program regardign snf placemen t. Per Ly, pt needs to go to a VA contracted snf if he wants the VA to provide for copay after his medicare coverage no longer pays 100%. Ly statesthese are some available VA c ontracted snfs: [facility], [facility], [facility], [facility]. [facility] are not contracted with them. Per Ly, if paperwork(PT/MD notes and [facility] form ) is submitted now, they can admit pt to a VA contracted snf under VA benefits. Informed Salo wang will discuss with pt and spouse Jessica. Per email from Sheila with [facility], pt declined for IPR. 1130:Tc to Jinny/[facility], she states pt night monitor nurse's note, pt has been restless an d public relations light continously and on IV fentanyl, she is not sure she has the man power to acc ept pt. 1200: Tc to spouse Jessica, , [facility] regarding snf placement. Met with pt regarding snf and VA benefits. Pt states he will discuss with spouse, but would consider going to [place]/[facility]. Sent e-referrals. Pt states Jessica [...] VA 1500: Tc to Carlos with [facility]([phone]), he thinks pt can be accepted when medically roseann dy, but first have to review pt's VA benefits to make sure rehab is covered. Tc to Jessica again,([phone]) left [facility] about rehab placement. Attempted to call Shonda reilly at work,[phone], busy signal. 1530: per Jimmy at [facility], they can accept pt when he is medically ready and if he wants to go there. Notified pt onver elder Transaction, Provider Unknown - 05/18/2016 10:37 AM PST Progress Notes by Khadra Osman RD, DANNY at 05/18/16 1037 Author: Khadra Osman RD, CDE Service: (none) Author Type: Acquisition Advisor Filed: 05/18/16 1044 Date of Service: 05/18/16 1037 Status: Signed Last Puller: Khadra Osman RD, CDE (Acquisition Advisor) Met with pt. Reports he's had diabetes [...] his blood sugar. Reports he's been through [employer] education classes two times - but [...] the VA. Khadra Osman RD, MPH, CDE, Acquisition Advisor 05/18/2016 10:43 AM onver elder Transaction, Provider Unknown - 05/18/2016 4:36 AM PST Nurse Progress Note by Hero You RN at 05/18/16435 Author: Hero You RN Service: (none) Author Type: Registered Nurse Filed: 05/18/16436 Date of Service: 05/18/16435 Status: Signed Last Puller: Hero You RN (Registered Nurse) Pts VSS, [...] 05/17/161701 Date of Service: 05/17/161699 Status: Signed Last Puller: Sandra Cedillo RN (Registered Nurse) Pt anxious [...] Date of Service: 05/17/16 1500 Status: Signed Last Puller: Cheryl Rodney PT (Physical Therapist) 05/17/16 1500 PT Last Visit PT Received On 05/17/16 Reason for Treatment Stroke Requires PT Follow Up Yes Follow up PT Only? Yes (complexity) Assistance Required 2 person Crop Pest Control Specialist Needed No Precautions UE Precaution(s) LUE Precautions/WB [...] lift for transfer back to bed - RN/TAX SERVICES PROFESSIONAL aware of pt positioning/abilities and need for [...] Barriers to Discharge Cognitive Deficits Impacting Functional [place];Self-care Defici ts Impacting Functional [place];Physical Deficits Impacting Functional [place];Malik rological Impairment (see comment) Recommendation Comments Pt [...] Date of Service: 05/17/16 1238 Status: Addendum Last Puller: Jeff Corley DO (Physician) Related Notes: Original [...] with patient, hope to transfer to [facility] pending insurance authorization (or siobhan). May need to follow with vascular [...] Problem: Ischemic stroke diagnosed during current admission ([facility]) Active Problems: Received intravenous tissue plasminogen activator [...] Management by Lisa Hogan RN at 05/17/16 8508 Author: Lisa Hogan RN Service: (none) Author Type: Registered Nurse Filed: 05/17/16 6572 Date of Service: 05/17/16 2735 Status: Addendum Last Puller: Lisa Hogan RN (Registered Nurse) Related Notes: Original Note by Lisa Hogan RN (Registered Nurse) filed at 05/17/16 130 3 Per rounding with pt, he is A&O x4. Pending IPR. Sent email to Sheila at [facility] for status. Left VM for PT regarding f/u with pt 1230:Tc to spouse Jessica regarding snf placement in case [facility] declines pt. Jessica upset as s he thought "doctor" had told her son yesterday that pt was a good candidate for [facility] and was accepted to [facility]. Informed Jessica Machado has not made decision yet as he is "following pt". Jessica wants referrals sent to [facility] , [facility] and [facility]. Jessica asks that we dont mention to pt snf placement yet until a decision i s made about [facility]. Negar onver elder Harris, Provider Unknown - 05/17/2016 10:05 AM PST Therapy Progress Note by TOLU Xiao/Parminder at 05/17/16 1005 Author: GABE Xiao Service: (none) Author Type: Occupational Therapist Filed: 05/17/16 1240 Date of Service: 05/17/16 1005 Status: Signed Last Puller: GABE Xiao (Occupational Therapist) 05/17/16 1005 OT Last Visit OT Received On 05/17/16 Reason for Treatment Stroke Requires OT Follow Up Awaiting tx order OT Eval/Reassessment Date 05/17/16 Assistance Required 2 person Crop Pest Control Specialist Needed No Family/Caregiver Present No Precautions Other Precautions high fall risk, L hemiparesis Other Comments Comments OT eval orders received/verified. Pt willing to participate in OT this AM. Chart r eviewed-relevant to OT evaluation: Left sided weakness, s/p IV rtPA with little improvement, due to right bogdan infarction, most likely [id number] in etiology related to uncontrol led DM; [...] Days Recommendation Recommendation Rehab consult Equipment Recommended Reconditioner;Bedside commode;Elastic shoe laces;[facility] Ready for Discharge Yes (may benefit [...] note for PLOF Prior Function Level of [place] Independent with functional mobility;Independent with ADLs;Independe nt [...] equipment (bed level) LE Dressing Adaptive Equipment Reconditioner;Dressing stick Arm Goals Pt Will Tolerate SROM [...] order Recommendation Recommendation Rehab consult Equipment Recommended Reconditioner;Bedside commode;Elastic shoe laces;[facility] OT Ready for Discharge [...] stroke, neurological resource center guide Moderate - 18653 High - 72220 History Expanded review of medical records; additional review of physical, cognitive, or ps ychosocial skills Examination Identification of 5 or more performance deficits Decision Making Presents with comorbidities; significant modification of tasks or assistan ce is needed to complete eval Clinical Decision Making Complexity: Moderate 14193 onver elder Transaction, Provider Unknown - 05/17/2016 5:44 AM PST Nurse Progress Note by Hero You RN at 05/17/16543 Author: Hero You RN Service: (none) Author Type: Registered Nurse Filed: 05/17/1650 Date of Service: 05/17/16543 Status: Signed Last Puller: Hero You RN (Registered Nurse) Pts VSS, [...] 05/16/161652 Date of Service: 05/16/161651 Status: Addendum Last Puller: Teena Matthew RN (Registered Nurse) Related Notes: Original Note by Teena Matthew RN (Registered Nurse) filed at 4130 No change from previous assessment. VSS, hourly [...] 05/16/161513 Date of Service: 05/16/161511 Status: Signed Last Puller: Wing Nina Machado MD (Physician) Patient seen [...] Calculation (Bezet) 05/14/2016 455 Final Calculated P Addis 05/14/2016 28 Final Calculated R Addis 05/14/2016 -3 Final Calculated T Addis 05/14/2016 38 Final Diagnosis 05/14/2016 Final Value:Normal [...] by HARIS De La Garza at 05/16/16 9535 Author: HARIS De La Garza Service: (none) Author Type: Ham Stringer Filed: 05/16/16 0944 Date of Service: 05/16/16 2338 Status: Signed Last Puller: HARIS De La Garza (Ham Stringer) 05/16/16 1201 Discharge Planning Evaluation Admitting Diagnosis [...] Yes Name of Pharmacy [facility] in [place], [place] or the [place] in [place] Previous home health equipment Yes;Comment (Pt uses a cane at baseline) Vascular access device No Ostomy/Drains/Appliances (TBD) Anticipated Disposition Facility Type Other (Comment) Met with patient Reagan Amezquita and discussed discharge planning. 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 The patient resides with his in [facility]. The patient was alert and [...] EMS called and patient was brought to [place]' ED. " "Patient is also complaining of a 3-week history of intermittent left-sided weakness and fal ls. He uses a cane for ambulation." Patient's PCP is: Patient's insurance: [employer] & Medicare Coverage concerns: no Medication coverage/concerns: no Rx Bedside Delivery: Preferred Pharmacy: [facility] [place] or [facility] Community resources utilized / needed: TBD Assistance in transportation: Spouse - Jessica Amezquita [phone] or work [phone] Identification of any specific education / training: no Barriers to Discharge / Alternative housing needed: TBD Anticipated DCP: Home DW[facility] De La Garza John Hill MD - 05/16/2016 8:26 AM PST Progress Notes by John Myrick MD at 05/16/16 08 Author: John Myrick MD Service: (none) Author Type: Physician Filed: 05/16/16 1131 Date of Service: 05/16/16825 Status: Addendum Last Puller: John Myrick MD (Physician) Related Notes: Original Note by John Myrick MD (Physician) filed at 05/16/16 1108 [facility] Service: Hospitalist Progress Note Pt: Reagan Amezquita AGE/SEX: 71 y.o. male : 1945 ROOM: [address] [place] [address] REQUESTING PROVIDER: John Myrick MD TODAY'S DATE: 05/16/2016 Hospital Day: LOS: 2 days + past medical history of DM 2 with neuropathy, DDD and TBI Transfer from [facility] seen there with left facial droop and left-sided weakness.,episode of urinary incontin ence and fall, .Acute infarction in the right bogdan, CT head unremarkablMRI e, no ICH. As N IHSS score of 14 TPA Was givien tranfer to [facility] for further care SUBJECTIVE aprt from witness [...] hours. No results for input(s): PHART, PO2ART, GUY3KOA, D5EGWLMF, BEART in the last 168 hours. No results for input(s): APTT, INR, PTT in the last 168 hours. No results for input(s): TSH, T3FREE, FREET4 in the last 168 hours. No results for input(s): CKTOTAL, TROPONINI, TROPONINT, CKMBINDEX in the last 168 hours. PROBLEM LIST Principal Problem: Ischemic stroke diagnosed during current admission ([facility]) Active Problems: Received intravenous tissue plasminogen activator [...] this point his current strok are pattern merchandise examiner ior circulation at this point asymtomatic carotid stenosiis Consider and need f/ up vascular at out patie nt once d/c Angelica Pearson M D - 05/16/2016 8:26 AM PST Progress Notes by Angelica Bernardo MD at 05/16/16825 Author: Angelica Bernardo MD Service: Neurology Author Type: Physician Filed: 05/16/16840 Date of Service: 05/16/16825 Status: Signed Last Puller: Angelica Bernardo MD (Physician) Subjective: Patient seen [...] due to right bogdan infarction, most likely gckklw-jq-nlqald in etiology related to uncontrolled DM. 2- [...] per patient and no documen tation), recommend surgical services coordinator Holter (30 days). 8. General care including [...] Date of Service: 05/16/16 0513 Status: Signed Last Puller: Hero You RN (Registered Nurse) Pt A&OX4, [...] 05/15/161938 Date of Service: 05/15/161930 Status: Addendum Last Puller: Sandra Cedillo RN (Registered Nurse) Related Notes: [...] Date of Service: 05/15/16 1242 Status: Signed Last Puller: Douglas Coelho PT (Physical Therapist) 05/15/16 1242 PT Last Visit PT Received On 05/15/16 Reason for Treatment Stroke Requires PT Follow Up Awaiting tx order Follow up PT Only? Yes (complexity) PT Eval/Reassessment Date 05/15/16 Assistance Required 2 person Crop Pest Control Specialist Needed No Home Environment Type of Home Home two story Home Exterior Layout Entry steps none Home Interior Layout Flight one;Rail on L ascending;Lives on main level with bedroom/bathro om;Walker accessible Bathroom Shower/Tub Tub/shower unit Bathroom Toilet Standard Bathroom Equipment Hand-held shower head;Tub transfer bench Bathroom Accessibility Accessible via walker Home Equipment Walker 4 wheeled;Cane single point Prior Function Level of [place] Independent with functional mobility;Independent with ADLs;Independe nt [...] Barriers to Discharge Cognitive Deficits Impacting Functional [place];Physical Deficit s Impacting Functional [place];Self-care Deficits Impacting Functional [place];Malik rological Impairment (see comment) Recommendation Comments pt. needs Max x 2 for transfers and mobility and should benefit fro m SNF to improve strength, endurance and functional mobility 05/15/16 1242 PT Last Visit PT Received On 05/15/16 Reason for Treatment Stroke Requires PT Follow Up Awaiting tx order Follow up PT Only? Yes (complexity) PT Eval/Reassessment Date 05/15/16 Assistance Required 2 person Crop Pest Control Specialist Needed No Precautions UE Precaution(s) LUE Precautions/WB [...] Barriers to Discharge Cognitive Deficits Impacting Functional [place];Physical Deficit s Impacting Functional [place];Self-care Deficits Impacting Functional [place];Malik rological Impairment (see comment) Recommendation Comments pt. needs Max x 2 for transfers and mobility and should benefit fro m SNF to improve strength, endurance and functional mobility Low - 06024 Moderate - 61419 High - 75017 History no personal factors &/or comorbidities 1-2 personal factors &/or comorbidities 3 o r more personal factors &/or comorbidities Examination 1-2 elements 3 elements 4 or more elements Clinical Presentation stable evolving unstable Clinical Decision Making Complexity: Low 81436 Moderate 10506 High 77932 Viviana Ferrer ARNP - 05/15/2016 9:41 AM PSTFormatting of this note might be different from stephanie brown original. Progress Notes by RUBEN Atkins at 05/15/16 09 Author: RUBEN Atkins Service: Foreign Service Teacher Author Type: Advanced Registered Nu rse Practitioner Filed: 05/15/16 1345 Date of Service: 05/15/16940 Status: Signed Last Puller: RUBEN Atkins (Advanced Registered Nurse Practitioner) [facility] Service: Foreign Service Teacher Progress Note Reagan Amezquita 71 y.o. [...] EMS called and patient was brought to [facility] ED. Patient was last seen normal on [...] Problem: Ischemic stroke diagnosed during current admission ([facility]) Active Problems: Received intravenous tissue plasminogen activator [...] of 14. Follow up on arrival to [facility] 9. Dr. Bernardo following Keep BP < 180/105 mmHg, brain MRI 24 hours post-TPA with no e/o hemorrhage. Keep normoth ermic, normoglycemic. PT/OT/DIRECTOR EQUIPMENT following. ? cardioembolic as cause for ischemic [...] On room air. GI/NUTRITION: Moderate protein-calorie malnutrition: [place] thick liquids per DIRECTOR EQUIPMENT recs. GERD: on protonix at home. Continue [...] Service: Neurology Author Type: Physician Filed: 05/15/16 9040 Date of Service: 05/15/16912 Status: Signed Last Puller: Angelica Bernardo MD (Physician) Subjective: Patient seen [...] due to right bogdan infarction, most likely yqppzw-cj-nmukat in etiology related to uncontrolled DM. 2- [...] per patient and no documen tation), recommend intermediate Holter (30 days). 9. Consult PT, OT, [...] 05/14/161528 Date of Service: 05/14/161528 Status: Signed Last Puller: Pretty Dhillon RD, CD (Registered Dietitian) 05/14/16 8095 Subjective Timepoint Admit (dysphagia) Pt c/o Pt [...] Fluid / Beverage Intake Oral Fluids Amount [place] thick liquids ad bryant. Ok for 1 [...] subcutaneous fat. Digestive System (Mouth to Rectum) DIRECTOR EQUIPMENT following for dysphagia. Skin Intact. Anthropometrics Weight [...] Estimated Energy Needs Total Energy Estimated Needs 3587-2323 kcal/day Method for Estimating Needs 25-30 kcal/kg admit wt (84.7 kg) Estimated Protein Needs Total Protein Estimated Needs 102-127 g protein/day Method for Estimating Needs 1.2-1.5 g protein/kg admit wt (84.7 kg) Recommendations Recommended energy needs Recommend adding diabetic diet restrictions to current DIRECTOR EQUIPMENT diet or nigel to help optimize glycemic [...] Therapy Progress Note by Kate Hale MA CCC-DIRECTOR EQUIPMENT at 05/14/16911 Author: Kate Hale MA CCC-DIRECTOR EQUIPMENT Service: (none) Author Type: Speech and Language Patholo gist Filed: 05/14/1645 Date of Service: 05/14/16911 Status: Signed Last Puller: Kate Hale MA CCC-DIRECTOR EQUIPMENT (Speech and Language Pathologist) 05/14/16911 DIRECTOR EQUIPMENT Last Visit DIRECTOR EQUIPMENT Received On 05/14/16 Requires DIRECTOR EQUIPMENT Follow Up Yes Swallowing Assessment Eval Swallowing [...] 1/2 trials by cup, none by spoon) [place] Presentation Cup;Self Fed Oral WFL Pharyngeal Phase [...] Larynge al Elevation Recommendations Liquids Consistency Recommendations [place] thick;Ice chips for oral comfort Diet Consistency [...] diet textures, no awareness until cued by DIRECTOR EQUIPMENT. At this time, recommen d puree diet [...] monitoring;Patient/Family education; Assessment for upgrade Dysphagia Goals Residential Goals Safe/efficient oral intake Pt will have safe/efficient oral intake Thin liquids;Mechanical soft diet;With min cues;Ne w/revised goal Short Term Goals Tolerate liquid consistency Pt will tolerate tolerate liquid consistency [place] thick liquids;with 1:1 supervision;New /revised goal onver elder Transaction, Provider Unknown - 05/14/2016 9:12 AM PST Therapy Progress Note by Zenon Schaeffer PT at 05/14/16911 Author: Zenon Schaeffer PT Service: Physical Medicine and Rehab Author Type: Physical Therapist Filed: 05/14/16 1556 Date of Service: 05/14/16911 Status: Signed Last Puller: Zenon Schaeffer PT (Physical Therapist) 05/14/16911 PT [...] [id number] Date of Service: 05/14/16556 Status: Signed Last Puller: Iggy Lee RPH (Pharmacist) Pharmacy will renal [...] | | | Fingerstick | performed at [facility];[address] | | LAB | | | | [address];[place], [place] | | | | | | [address] [...] | | | Fingerstick | performed at [facility];[address] | | LAB | | | | [address];[place], [place] | | | | | | [address] | | | | + + + [...] | | | Fingerstick | performed at [facility];[address] | | LAB | | | | [address];[place] | | | | | | [address] | | | | + + + [...] | | | Fingerstick | performed at [facility];[address] | | LAB | | | | [address];[place] | | | | | | [address] | | | | + + + [...] | | | Fingerstick | performed at [facility];[address] | | LAB | | | | [place] | | | | | | [address] | | | | + + + [...] | | | Fingerstick | performed at [facility];[address] | | LAB | | | | [address];[place], [place] | | | | | | [address] | | | | + + + [...] EXTERNAL | | | | performed at [facility], [address] | K/uL | LAB | | | | [address], | | | | | | [place] [address] | | | | + + + + + + | Red Blood | 4.96Comment: Testing | 4.20 - 5.70 | EXTERNAL | | | Cells | performed at [facility], [address] | M/uL | LAB | | | Counted | [address], | | | | | | [place] [address] | | | | + + + + + + | Hemoglobin | 14.1Comment: Testing | 13.2 - 17.0 | EXTERNAL | | | | performed at [facility], [address] | g/dL | LAB | | | | [address], | | | | | | [place], [place] [address] | | | | + + + + + + | Hematocrit, | 40.8Comment: Testing | 39.0 - 50.0 % | EXTERNAL | | | POC | performed at [facility], [address] | | LAB | | | | [address], | | | | | | [place] [address] | | | | + + + + + + | MCV | 82.3Comment: Testing | 80.0 - 100.0 fl | EXTERNAL | | | | performed at [facility], [address] | | LAB | | | | [address], | | | | | | [place] [address] | | | | + + + + + + | MCH | 28.5Comment: Testing | 27.0 - 34.0 pg | EXTERNAL | | | | performed at [facility], [address] | | LAB | | | | [address], | | | | | | [place] [address] | | | | + + + + + + | MCHC | 34.6Comment: Testing | 32.0 - 35.5 | EXTERNAL | | | | performed at [facility], [address] | g/dL | LAB | | | | [address], | | | | | | [place] [address] | | | | + + + + + + | RDW-CV | 42.0Comment: Testing | 37 - 53 fl | EXTERNAL | | | | performed at [facility], [address] | | LAB | | | | [address], | | | | | | [place] [address] | | | | + + + + + + | Platelet | 219Comment: Testing | 150 - 400 K/uL | EXTERNAL | | | Count | performed at [facility], [address] | | LAB | | | Plasma | [address], | | | | | | [place] [address] | | | | + + + + + + | MPV | 8.6Comment: Testing | fl | EXTERNAL | | | | performed at [facility], [address] | | LAB | | | | [address], | | | | | | [place] [address] | | | | + + + + + + | Differentia | AUTOMATEDComment: | | EXTERNAL | | | l Type | Testing performed at | | LAB | | | | [facility], [address] | | | | | | [place] | | | | | | [address] | | | | + + + + + + | % Segmented | 65.52Comment: Testing | % | EXTERNAL | | | | performed at [facility], [address] | | LAB | | | Neutrophils | [address], | | | | | | [place] [address] | | | | + + + + + + | % | 22.13Comment: Testing | % | EXTERNAL | | | Lymphocytes | performed at [facility], [address] | | LAB | | | | [address], | | | | | | [place] [address] | | | | + + + + + + | % Monocytes | 9.16Comment: Testing | % | EXTERNAL | | | | performed at [facility], [address] | | LAB | | | | [address], | | | | | | [place] [address] | | | | + + + + + + | % | 2.44Comment: Testing | % | EXTERNAL | | | Eosinophils | performed at [facility], [address] | | LAB | | | | [address], | | | | | | [place] [address] | | | | + + + + + + | % Basophils | 0.75Comment: Testing | % | EXTERNAL | | | | performed at [facility], [address] | | LAB | | | | [address], | | | | | | [place] [address] | | | | + + + + + + | Absolute | 6.91Comment: Testing | 1.90 - 7.40 | EXTERNAL | | | Segmented | performed at [facility], [address] | K/uL | LAB | | | Neutrophils | [address], | | | | | | [place] [address] | | | | + + + + + + | Absolute | 2.33Comment: Testing | 1.00 - 3.90 | EXTERNAL | | | Lymphocytes | performed at [facility], [address] | K/uL | LAB | | | | [address], | | | | | | [place] [address] | | | | + + + + + + | Absolute | 0.97 (H)Comment: Testing | 0.00 - 0.80 | EXTERNAL | | | Monocytes | performed at [facility], [address] | K/uL | LAB | | | | [address], | | | | | | [place] [address] | | | | + + + + + + | Absolute | 0.26Comment: Testing | 0.00 - 0.50 | EXTERNAL | | | Eosinophils | performed at [facility], [address] | K/uL | LAB | | | | [address], | | | | | | [place] [address] | | | | + + + + + + | Absolute | 0.08Comment: Testing | 0.00 - 0.10 | EXTERNAL | | | Basophils | performed at [facility], [address] | K/uL | LAB | | | | [address], | | | | | | [place] [address] | | | | + + + [...] EXTERNAL | | | | performed at [facility], [address] | | LAB | | | | [address], | | | | | | [place] [address] | | | | + + + [...] EXTERNAL | | | | performed at [facility], [address] | | LAB | | | | [address], | | | | | | [place] [address] | | | | + + + [...] | | | | | [place] [address] | | | | + + + + + + | K | 4.1Comment: Testing | 3.5 - 4.9 | EXTERNAL | | | | performed at [facility], [address] | mmol/L | LAB | | | | [address], | | | | | | [place] [address] | | | | + + + + + + | Cl | 104Comment: Testing | 99 - 109 mmol/L | EXTERNAL | | | | performed at [facility], [address] | | LAB | | | | [address], | | | | | | [place] [address] | | | | + + + + + + | CO2 | 27Comment: Testing | 23 - 32 mmol/L | EXTERNAL | | | | performed at [facility], [address] | | LAB | | | | [address], | | | | | | [place] [address] | | | | + + + + + + | Anion Gap | 12Comment: Testing | 5 - 20 mmol/L | EXTERNAL | | | | performed at [facility], [address] | | LAB | | | | [address], | | | | | | [place] [address] | | | | + + + + + + | Glucose, | 143 (H)Comment: Testing | 65 - 99 mg/dL | EXTERNAL | | | Fasting | performed at [facility], [address] | | LAB | | | | [address], | | | | | | [place] [address] | | | | + + + + + + | BUN | 9Comment: Testing | 8 - 25 mg/dL | EXTERNAL | | | | performed at [facility], [address] | | LAB | | | | [address], | | | | | | [place] [address] | | | | + + + + + + | Creatinine | 0.6 (L)Comment: Testing | 0.70 - 1.30 | EXTERNAL | | | | performed at [facility], [address] | mg/dL | LAB | | | | [address], | | | | | | [place] [address] | | | | + + + + + + | BUN/Creatin | 15Comment: Testing | | EXTERNAL | | | ine Ratio | performed at [facility], [address] | | LAB | | | | [address], | | | | | | [place] [address] | | | | + + + + + + | Calcium | 8.6Comment: Testing | 8.5 - 10.5 | EXTERNAL | | | | performed at [facility], [address] | mg/dL | LAB | | | | [facility], | | | | | | [place] [address] | | | | + + + [...] W | | | | | | [facility], | | | | | | [place] [address] | | | | + + + [...] | | | Fingerstick | performed at [facility];[address] | | LAB | | | | [address];[place] | | | | | | [address] | | | | + + + [...] | | | Fingerstick | performed at [facility];[address] | | LAB | | | | [address];[place], [place] | | | | | | [address] | | | | + + + [...] | | | Fingerstick | performed at [facility];[address] | | LAB | | | | [address];[place], [place] | | | | | | [address] | | | | + + + [...] | | | Fingerstick | performed at [facility];[address] | | LAB | | | | [address];[place], [place] | | | | | | [address] | | | | + + + [...] | | | | [facility], [address] [facility] | | | | | | [place] | | | | | | [address] | | | | + + + + + + | Red Blood | 4.92Comment: Testing | 4.20 - 5.70 | EXTERNAL | | | Cells | performed at [facility], [address] | M/uL | LAB | | | Counted | [address], | | | | | | [place] [address] | | | | + + + + + + | Hemoglobin | 13.9Comment: Testing | 13.2 - 17.0 | EXTERNAL | | | | performed at [facility], [address] | g/dL | LAB | | | | [address], | | | | | | [place] [address] | | | | + + + + + + | Hematocrit, | 40.8Comment: Testing | 39.0 - 50.0 % | EXTERNAL | | | POC | performed at [facility], [address] | | LAB | | | | [address], | | | | | | [place] [address] | | | | + + + + + + | MCV | 83.0Comment: Testing | 80.0 - 100.0 fl | EXTERNAL | | | | performed at [facility], [address] | | LAB | | | | [address], | | | | | | [place] [address] | | | | + + + + + + | MCH | 28.3Comment: Testing | 27.0 - 34.0 pg | EXTERNAL | | | | performed at [facility], [address] | | LAB | | | | [address], | | | | | | [place] [address] | | | | + + + + + + | MCHC | 34.0Comment: Testing | 32.0 - 35.5 | EXTERNAL | | | | performed at [facility], [address] | g/dL | LAB | | | | [address], | | | | | | [place] [address] | | | | + + + + + + | RDW-CV | 42.4Comment: Testing | 37 - 53 fl | EXTERNAL | | | | performed at [facility], [address] | | LAB | | | | [address], | | | | | | [place] [address] | | | | + + + + + + | Platelet | 215Comment: Testing | 150 - 400 K/uL | EXTERNAL | | | Count | performed at [facility], [address] | | LAB | | | Plasma | [address], | | | | | | [place] [address] | | | | + + + + + + | MPV | 8.5Comment: Testing | fl | EXTERNAL | | | | performed at [facility], [address] | | LAB | | | | [address], | | | | | | [place] [address] | | | | + + + + + + | Differentia | AUTOMATEDComment: | | EXTERNAL | | | l Type | Testing performed at | | LAB | | | | [facility], [address] | | | | | | [place] | | | | | | [address] | | | | + + + + + + | % Segmented | 70.19Comment: Testing | % | EXTERNAL | | | | performed at [facility], [address] | | LAB | | | Neutrophils | [address], | | | | | | [place] [address] | | | | + + + + + + | % | 17.93Comment: Testing | % | EXTERNAL | | | Lymphocytes | performed at [facility], [address] | | LAB | | | | [address], | | | | | | [place] [address] | | | | + + + + + + | % Monocytes | 8.97Comment: Testing | % | EXTERNAL | | | | performed at [facility], [address] | | LAB | | | | [address], | | | | | | [place] [address] | | | | + + + + + + | % | 2.27Comment: Testing | % | EXTERNAL | | | Eosinophils | performed at [facility], [address] | | LAB | | | | [address], | | | | | | [place] [address] | | | | + + + + + + | % Basophils | 0.64Comment: Testing | % | EXTERNAL | | | | performed at [facility], [address] | | LAB | | | | [address], | | | | | | [place] [address] | | | | + + + + + + | Absolute | 7.86 (H)Comment: Testing | 1.90 - 7.40 | EXTERNAL | | | Segmented | performed at [facility], [address] | [address] | LAB | | | Neutrophils | [address], | | | | | | [place] [address] | | | | + + + + + + | Absolute | 2.01Comment: Testing | 1.00 - 3.90 | EXTERNAL | | | Lymphocytes | performed at [facility], [address] | K/uL | LAB | | | | [address], | | | | | | [place] [address] | | | | + + + + + + | Absolute | 1.01 (H)Comment: Testing | 0.00 - 0.80 | EXTERNAL | | | Monocytes | performed at [facility], [address] | [address]/uL | LAB | | | | [address], | | | | | | [place] [address] | | | | + + + + + + | Absolute | 0.25Comment: Testing | 0.00 - 0.50 | EXTERNAL | | | Eosinophils | performed at [facility], [address] | K/uL | LAB | | | | [address], | | | | | | [place] [address] | | | | + + + + + + | Absolute | 0.07Comment: Testing | 0.00 - 0.10 | EXTERNAL | | | Basophils | performed at [facility], [address] | K/uL | LAB | | | | [address], | | | | | | [place] [address] | | | | + + + [...] EXTERNAL | | | | performed at [facility], [address] | | LAB | | | | [address], | | | | | | [place] [address] | | | | + + + [...] EXTERNAL | | | | performed at [facility], [address] | | LAB | | | | [address], | | | | | | [place] [address] | | | | + + + [...] | | | | | [place] [address] | | | | + + + + + + | K | 3.9Comment: Testing | 3.5 - 4.9 | EXTERNAL | | | | performed at [facility], [address] | mmol/L | LAB | | | | [address], | | | | | | [place] [address] | | | | + + + + + + | Cl | 103Comment: Testing | 99 - 109 mmol/L | EXTERNAL | | | | performed at [facility], [address] | | LAB | | | | [address], | | | | | | [place] [address] | | | | + + + + + + | CO2 | 25Comment: Testing | 23 - 32 mmol/L | EXTERNAL | | | | performed at [facility], [address] | | LAB | | | | [address], | | | | | | [place] [address] | | | | + + + + + + | Anion Gap | 15Comment: Testing | 5 - 20 mmol/L | EXTERNAL | | | | performed at [facility], [address] | | LAB | | | | [address], | | | | | | [place] [address] | | | | + + + + + + | Glucose, | 132 (H)Comment: Testing | 65 - 99 mg/dL | EXTERNAL | | | Fasting | performed at [facility], [address] | | LAB | | | | [address], | | | | | | [place] [address] | | | | + + + + + + | BUN | 9Comment: Testing | 8 - 25 mg/dL | EXTERNAL | | | | performed at [facility], [address] | | LAB | | | | [address], | | | | | | [place] [address] | | | | + + + + + + | Creatinine | 0.5 (L)Comment: Testing | 0.70 - 1.30 | EXTERNAL | | | | performed at [facility], [address] | mg/dL | LAB | | | | [address], | | | | | | [place] [address] | | | | + + + + + + | BUN/Creatin | 18Comment: Testing | | EXTERNAL | | | ine Ratio | performed at [facility], [address] | | LAB | | | | [address], | | | | | | [place] [address] | | | | + + + + + + | Calcium | 8.4 (L)Comment: Testing | 8.5 - 10.5 | EXTERNAL | | | | performed at [facility], [address] | mg/dL | LAB | | | | [address], | | | | | | [place] [address] | | | | + + + + + + | Protein, | 6.0 (L)Comment: Testing | 6.3 - 8.2 g/dL | EXTERNAL | | | Total | performed at [facility], [address] | | LAB | | | | [address], | | | | | | [place] [address] | | | | + + + + + + | Albumin | 3.0 (L)Comment: Testing | 3.3 - 4.8 g/dL | EXTERNAL | | | | performed at [facility], [address] | | LAB | | | | [address], | | | | | | [place] [address] | | | | + + + + + + | Globulin | 3.0Comment: Testing | 1.3 - 4.9 g/dL | EXTERNAL | | | | performed at [facility], [address] | | LAB | | | | [address], | | | | | | [place] [address] | | | | + + + + + + | A/G Ratio | 1.0Comment: Testing | 1.0 - 2.4 | EXTERNAL | | | | performed at [facility], [address] | | LAB | | | | [address], | | | | | | [place] [address] | | | | + + + + + + | Bilirubin | 1.4Comment: Testing | 0.1 - 1.5 mg/dL | EXTERNAL | | | Total | performed at [facility], [address] | | LAB | | | | [address], | | | | | | [place] [address] | | | | + + + + + + | ALP, | 77Comment: Testing | 35 - 115 U/L | EXTERNAL | | | External | performed at [facility], [address] | | LAB | | | | [address], | | | | | | [place] [address] | | | | + + + + + + | AST | 14Comment: Testing | 10 - 45 U/L | EXTERNAL | | | | performed at [facility], [address] | | LAB | | | | [address], | | | | | | [place] [address] | | | | + + + + + + | ALT | 13Comment: Testing | 10 - 65 U/L | EXTERNAL | | | | performed at [facility], [address] | | LAB | | | | [address], | | | | | | [place] [address] | | | | + + + [...] | | | | | [place] [address] | | | | + + + [...] | | | Fingerstick | performed at [facility];[address] | | LAB | | | | [address];[place] | | | | | | [address] | | | | + + + [...] | | | Fingerstick | performed at [facility];[address] | | LAB | | | | [address];[place], [place] | | | | | | [address] | | | | + + + [...] | | | to suboptimal images. MEASUREMENTS Chief Technician: | | | KVW Authenticated by: Aleksandar [...] due to suboptimal images. MEASUREMENTS | | Chief Technician: ELIZABETHuthenticated by: Aleksandar DotsonReport Date/Time: 05-16-2016 20:59:22 [...] | |MEASUREMENTS | | | | | |Chief Technician: MARILUW | |Authenticated by: Aleksandar Dotson | [...] | | | Fingerstick | performed at [facility];[address] | | LAB | | | | [address];[place] | | | | | | [address] | | | | + + + [...] was also examined | | | with [employer] 3D software for evaluation of the cerebral [...] Conversion - 11/02/2018 6:55 AM PDT REAGAN [id number] years MaleCTA | | HEAD NECK W [...] The data set was also examined with [employer] 3D software for evaluation of the cerebral [...] | | | | [facility], [address] [facility] | | | | | | [place] | | | | | | [address] | | | | + + + + + + | Red Blood | 4.77Comment: Testing | 4.20 - 5.70 | EXTERNAL | | | Cells | performed at [facility], [address] | M/uL | LAB | | | Counted | [facility], | | | | | | [place] [address] | | | | + + + + + + | Hemoglobin | 13.4Comment: Testing | 13.2 - 17.0 | EXTERNAL | | | | performed at [facility], [address] | g/dL | LAB | | | | [address], | | | | | | [place] [address] | | | | + + + + + + | Hematocrit, | 39.1Comment: Testing | 39.0 - 50.0 % | EXTERNAL | | | POC | performed at [facility], [address] | | LAB | | | | [address], | | | | | | [place] [address] | | | | + + + + + + | MCV | 82.0Comment: Testing | 80.0 - 100.0 fl | EXTERNAL | | | | performed at [facility], [address] | | LAB | | | | [address], | | | | | | [place] [address] | | | | + + + + + + | MCH | 28.0Comment: Testing | 27.0 - 34.0 pg | EXTERNAL | | | | performed at [facility], [address] | | LAB | | | | [address], | | | | | | [place] [address] | | | | + + + + + + | MCHC | 34.1Comment: Testing | 32.0 - 35.5 | EXTERNAL | | | | performed at [facility], [address] | g/dL | LAB | | | | [address], | | | | | | [place] [address] | | | | + + + + + + | RDW-CV | 42.9Comment: Testing | 37 - 53 fl | EXTERNAL | | | | performed at [facility], [address] | | LAB | | | | [address], | | | | | | [place] [address] | | | | + + + + + + | Platelet | 238Comment: Testing | 150 - 400 K/uL | EXTERNAL | | | Count | performed at [facility], [address] | | LAB | | | Plasma | [address], | | | | | | [place] [address] | | | | + + + + + + | MPV | 8.8Comment: Testing | fl | EXTERNAL | | | | performed at [facility], [address] | | LAB | | | | [address], | | | | | | [place] [address] | | | | + + + + + + | Differentia | AUTOMATEDComment: | | EXTERNAL | | | l Type | Testing performed at | | LAB | | | | [facility], [address] | | | | | | [place] | | | | | | [address] | | | | + + + + + + | % Segmented | 68.92Comment: Testing | % | EXTERNAL | | | | performed at [facility], [address] | | LAB | | | Neutrophils | [address], | | | | | | [place] [address] | | | | + + + + + + | % | 18.94Comment: Testing | % | EXTERNAL | | | Lymphocytes | performed at [facility], [address] | | LAB | | | | [address], | | | | | | [place] [address] | | | | + + + + + + | % Monocytes | 10.32Comment: Testing | % | EXTERNAL | | | | performed at [facility], [address] | | LAB | | | | [address], | | | | | | [place] [address] | | | | + + + + + + | % | 1.25Comment: Testing | % | EXTERNAL | | | Eosinophils | performed at [facility], [address] | | LAB | | | | [address], | | | | | | [place] [address] | | | | + + + + + + | % Basophils | 0.57Comment: Testing | % | EXTERNAL | | | | performed at [facility], [address] | | LAB | | | | [address], | | | | | | [place] [address] | | | | + + + + + + | Absolute | 8.86 (H)Comment: Testing | 1.90 - 7.40 | EXTERNAL | | | Segmented | performed at [facility], [address] | K/uL | LAB | | | Neutrophils | [address], | | | | | | [place] [address] | | | | + + + + + + | Absolute | 2.44Comment: Testing | 1.00 - 3.90 | EXTERNAL | | | Lymphocytes | performed at [facility], [address] | K/uL | LAB | | | | [address], | | | | | | [place] [address] | | | | + + + + + + | Absolute | 1.33 (H)Comment: Testing | 0.00 - 0.80 | EXTERNAL | | | Monocytes | performed at [facility], [address] | K/uL | LAB | | | | [address], | | | | | | [place] [address] | | | | + + + + + + | Absolute | 0.16Comment: Testing | 0.00 - 0.50 | EXTERNAL | | | Eosinophils | performed at [facility], [address] | K/uL | LAB | | | | [address], | | | | | | [place] [address] | | | | + + + + + + | Absolute | 0.07Comment: Testing | 0.00 - 0.10 | EXTERNAL | | | Basophils | performed at [facility], [address] | K/uL | LAB | | | | [address], | | | | | | [place] [address] | | | | + + + [...] | | | Fingerstick | performed at [facility];[address] | | LAB | | | | [address];[place], [place] | | | | | | [address] | | | | + + + [...] | | | | | performed at [facility], [address] | | | | | | [address], | | | | | | [place] [address] | | | | + + + [...] W | | | | | | [facility], | | | | | | [place] [address] | | | | + + + [...] | | | | | [place] [address] | | | | + + + + + + | K | 4.2Comment: SPECIMEN | 3.5 - 4.9 | EXTERNAL | | | | SLIGHTLY | mmol/L | LAB | | | | HEMOLYZEDTesting | | | | | | performed at [facility], [address] | | | | | | [address], | | | | | | [place] [address] | | | | + + + + + + | Cl | 104Comment: Testing | 99 - 109 mmol/L | EXTERNAL | | | | performed at [facility], [address] | | LAB | | | | [address], | | | | | | [place] [address] | | | | + + + + + + | CO2 | 25Comment: Testing | 23 - 32 mmol/L | EXTERNAL | | | | performed at [facility], [address] | | LAB | | | | [address], | | | | | | [place] [address] | | | | + + + + + + | Anion Gap | 14Comment: Testing | 5 - 20 mmol/L | EXTERNAL | | | | performed at [facility], [address] | | LAB | | | | [address], | | | | | | [place] [address] | | | | + + + [...] | | | | | [place] [address] | | | | + + + + + + | BUN | 9Comment: Testing | 8 - 25 mg/dL | EXTERNAL | | | | performed at [facility], [address] | | LAB | | | | [address], | | | | | | [place] [address] | | | | + + + + + + | Creatinine | 0.7Comment: SPECIMEN | 0.70 - 1.30 | EXTERNAL | | | | SLIGHTLY | mg/dL | LAB | | | | HEMOLYZEDTesting | | | | | | performed at [facility], [address] | | | [address], | | | | | | [place] [address] | | | | + + + + + + | BUN/Creatin | 13Comment: Testing | | EXTERNAL | | | ine Ratio | performed at [facility], [address] | | LAB | | | | [address], | | | | | | [place] [address] | | | | + + + + + + | Calcium | 8.5Comment: Testing | 8.5 - 10.5 | EXTERNAL | | | | performed at [facility], [address] | mg/dL | LAB | | | | [address], | | | | | | [place] [address] | | | | + + + + + + | Protein, | 5.8 (L)Comment: Testing | 6.3 - 8.2 g/dL | EXTERNAL | | | Total | performed at [facility], [address] | | LAB | | | | [address], | | | | | | [place] [address] | | | | + + + + + + | Albumin | 2.8 (L)Comment: Testing | 3.3 - 4.8 g/dL | EXTERNAL | | | | performed at [facility], [address] | | LAB | | | | [address], | | | | | | [place] [address] | | | | + + + + + + | Globulin | 3.0Comment: Testing | 1.3 - 4.9 g/dL | EXTERNAL | | | | performed at [facility], [address] | | LAB | | | | [address], | | | | | | [place] [address] | | | | + + + + + + | A/G Ratio | 0.9 (L)Comment: Testing | 1.0 - 2.4 | EXTERNAL | | | | performed at [facility], [address] | | LAB | | | | [address], | | | | | | [place] [address] | | | | + + + [...] | | | | | [place] [address] | | | | + + + + + + | ALP, | 77Comment: Testing | 35 - 115 U/L | EXTERNAL | | | External | performed at [facility], [address] | | LAB | | | | [address], | | | | | | [place] [address] | | | | + + + + + + | AST | 18Comment: SPECIMEN | 10 - 45 U/L | EXTERNAL | | | | SLIGHTLY | | LAB | | | | HEMOLYZEDTesting | | | | | | performed at [facility], [address] | | | | | | [address], | | | | | | [place] [address] | | | | + + + + + + | ALT | 15Comment: SPECIMEN | 10 - 65 U/L | EXTERNAL | | | | SLIGHTLY | | LAB | | | | HEMOLYZEDTesting | | | | | | performed at [facility], [address] | | | | | | [address], | | | | | | [place] [address] | | | | + + + [...] | | | | | [place] [address] | | | | + + + [...] | | | Fingerstick | performed at [facility];[address] | | LAB | | | | Kiara Jaramillo;[place], [place] | | | | | | [address] | | | | + + + [...] | | | Fingerstick | performed at [facility];[address] | | LAB | | | | Kiara Jaramillo;[place] | | | | | | [address] | | | | + + + [...] | | | | | [place] [address] | | | | + + + [...] | | | Fingerstick | performed at [facility];[address] | | LAB | | | | Kiara Jaramillo;[place] | | | | | | [address] | | | | + + + [...] Performed At | + + + | [facility] MRI BRAIN WO AND MRA HEAD 05/15/2016 10:47 AM | | | HISTORY: Stroke. Status post TPA administration. TECHNIQUE: | | | Multiplanar MR imaging was performed through the brain without | | | gadolinium. 3-D zjlt-lf-klezqd MR angiography was also performed to | [...] Johnson, Rad Conversion - 11/02/2018 6:[address] [facility] BRAIN WO AND MRA | | HEAD05/15/2016 10:47 AM HISTORY:Stroke. Status post TPA administration. | | TECHNIQUE:Multiplanar MR imaging was performed through the brain without gadolinium. 3-D | | qusx-ap-onecrm MR angiography was also performed to the [...] | | | Fingerstick | performed at [facility];[address] | | LAB | | | | [place] Jaram[place] | | | | | | [address] | | | | + + + [...] | | | Fingerstick | performed at [facility];[address] | | LAB | | | | [place] | | | | | | [address] | | | | + + + [...] | | | Fingerstick | performed at [facility];[address] | | LAB | | | | [address];[place], [place] | | | | | | [address] | | | | + + + [...] | | | Fingerstick | performed at [facility];[address] | | LAB | | | | [place] Jaram[place] | | | | | | [address] | | | | + + + [...] | | | | [facility], [address] [facility] | | | | | | [place] | | | | | | [address] | | | | + + + + + + | Red Blood | 5.01Comment: Testing | 4.20 - 5.70 | EXTERNAL | | | Cells | performed at [facility], [address] | M/uL | LAB | | | Counted | [address], | | | | | | [place] [address] | | | | + + + [...] | | | | | [place] [address] | | | | + + + + + + | MCV | 81.5Comment: Testing | 80.0 - 100.0 fl | EXTERNAL | | | | performed at [facility], [address] | | LAB | | | | [address], | | | | | | [place] [address] | | | | + + + + + + | MCH | 27.9Comment: Testing | 27.0 - 34.0 pg | EXTERNAL | | | | performed at [facility], [address] | | LAB | | | | [address], | | | | | | [place] [address] | | | | + + + + + + | MCHC | 34.2Comment: Testing | 32.0 - 35.5 | EXTERNAL | | | | performed at [facility], [address] | g/dL | LAB | | | | [address], | | | | | | [place] [address] | | | | + + + + + + | RDW-CV | 42.0Comment: Testing | 37 - 53 fl | EXTERNAL | | | | performed at [facility], [address] | | LAB | | | | [address], | | | | | | [place] [address] | | | | + + + + + + | Platelet | 257Comment: Testing | 150 - 400 K/uL | EXTERNAL | | | Count | performed at [facility], [address] | | LAB | | | Plasma | [address] [place], | | | | | | [place] [address] | | | | + + + + + + | MPV | 8.4Comment: Testing | fl | EXTERNAL | | | | performed at [facility], [address] | | LAB | | | | [address], | | | | | | [place] [address] | | | | + + + + + + | Differentia | AUTOMATEDComment: | | EXTERNAL | | | l Type | Testing performed at | | LAB | | | | [facility], [address] | | | | | | [place] | | | | | | [address] | | | | + + + + + + | % Segmented | 72.88Comment: Testing | % | EXTERNAL | | | | performed at [facility], [address] | | LAB | | | Neutrophils | [address], | | | | | | [place], [place] [address] | | | | + + + + + + | % | 17.64Comment: Testing | % | EXTERNAL | | | Lymphocytes | performed at [facility], [address] | | LAB | | | | [address], | | | | | | [place], [place] [address] | | | | + + + + + + | % Monocytes | 8.16Comment: Testing | % | EXTERNAL | | | | performed at [facility], [address] | | LAB | | | | [address], | | | | | | [place] [address] | | | | + + + + + + | % | 1.06Comment: Testing | % | EXTERNAL | | | Eosinophils | performed at [facility], [address] | | LAB | | | | [address], | | | | | | [place] [address] | | | | + + + + + + | % Basophils | 0.26Comment: Testing | % | EXTERNAL | | | | performed at [facility], [address] | | LAB | | | | [address], | | | | | | [place] [address] | | | | + + + + + + | Absolute | 10.84 (H)Comment: | 1.90 - 7.40 | EXTERNAL | | | Segmented | Testing performed at | K/uL | LAB | | | Neutrophils | [facility], [address] | | | | | | [place] | | | | | | [address] | | | | + + + + + + | Absolute | 2.62Comment: Testing | 1.00 - 3.90 | EXTERNAL | | | Lymphocytes | performed at [facility], [address] | K/uL | LAB | | | | [address], | | | | | | [place] [address] | | | | + + + + + + | Absolute | 1.21 (H)Comment: Testing | 0.00 - 0.80 | EXTERNAL | | | Monocytes | performed at [facility], [address] | K/uL | LAB | | | | [address], | | | | | | [place] [address] | | | | + + + + + + | Absolute | 0.16Comment: Testing | 0.00 - 0.50 | EXTERNAL | | | Eosinophils | performed at [facility], [address] | K/uL | LAB | | | | [address], | | | | | | [place] [address] | | | | + + + + + + | Absolute | 0.04Comment: Testing | 0.00 - 0.10 | EXTERNAL | | | Basophils | performed at [facility], [address] | K/uL | LAB | | | | [address], | | | | | | [place] [address] | | | | + + + [...] EXTERNAL | | | | performed at [facility], [address] | | LAB | | | | [address], | | | | | | [place] [address] | | | | + + + [...] EXTERNAL | | | | performed at [facility], [address] | | LAB | | | | [address], | | | | | | [place] [address] | | | | + + + [...] | EXTERNAL | | | A1c | [facility] Diabetes | | LAB | | | [...] | | | | | performed at [facility], [address] | | | | | [address], | | | | | | [place] [address] | | | | + + + [...] | | | | | performed at [facility], [address] | | | | | | [address], | | | | | | [place] [address] | | | | + + + [...] EXTERNAL | | | | performed at [facility], [address] | | LAB | | | | [address], | | | | | | [place] [address] | | | | + + + + + + | Triglycerid | 152 (H)Comment: Testing | mg/dL | EXTERNAL | | | es | performed at [facility], [address] | | LAB | | | | [address], | | | | | | [place] [address] | | | | + + + + + + | HDL | 31 (L)Comment: Testing | mg/dL | EXTERNAL | | | | performed at [facility], [address] | | LAB | | | | [address], | | | | | | [place] [address] | | | | + + + + + + | LDL, | 47Comment: Testing | mg/dL | EXTERNAL | | | Calculated | performed at [facility], [address] | | LAB | | | | [address], | | | | | | [place] [address] | | | | + + + [...] | | | | | [place] [address] | | | | + + + + + + | K | 3.3 (L)Comment: Testing | 3.5 - 4.9 | EXTERNAL | | | | performed at [facility], [address] | mmol/L | LAB | | | | [address], | | | | | | [place] [address] | | | | + + + + + + | Cl | 104Comment: Testing | 99 - 109 mmol/L | EXTERNAL | | | | performed at [facility], [address] | | LAB | | | | [address], | | | | | | [place] [address] | | | | + + + + + + | CO2 | 25Comment: Testing | 23 - 32 mmol/L | EXTERNAL | | | | performed at [facility], [address] | | LAB | | | | [address], | | | | | | [place] [address] | | | | + + + + + + | Anion Gap | 12Comment: Testing | 5 - 20 mmol/L | EXTERNAL | | | | performed at [facility], [address] | | LAB | | | | [address], | | | | | | [place] [address] | | | | + + + + + + | Glucose, | 125 (H)Comment: Testing | 65 - 99 mg/dL | EXTERNAL | | | Fasting | performed at [facility], [address] | | LAB | | | | [address], | | | | | | [place] [address] | | | | + + + + + + | BUN | 11Comment: Testing | 8 - 25 mg/dL | EXTERNAL | | | | performed at [facility], [address] | | LAB | | | | [address], | | | | | | [place] [address] | | | | + + + + + + | Creatinine | 0.7Comment: Testing | 0.70 - 1.30 | EXTERNAL | | | | performed at [facility], [address] | mg/dL | LAB | | | | [address], | | | | | | [place] [address] | | | | + + + + + + | BUN/Creatin | 16Comment: Testing | | EXTERNAL | | | ine Ratio | performed at [facility], [address] | | LAB | | | | [address], | | | | | | [place] [address] | | | | + + + + + + | Calcium | 8.3 (L)Comment: Testing | 8.5 - 10.5 | EXTERNAL | | | | performed at [facility], [address] | mg/dL | LAB | | | | [address], | | | | | | [place] [address] | | | | + + + [...] [address], | | | | | | [place] [address] | | | | + + + [...] | | | Fingerstick | performed at [facility];[address] | | LAB | | | | [address];[place], [place] | | | | | | [address] | | | | + + + [...] | | | Fingerstick | performed at [facility];[address] | | LAB | | | | [address];[place], [place] | | | | | | [address] | | | | + + + [...] | | | Fingerstick | performed at [facility];[address] | | LAB | | | | [place] [address] | | | | | | [address] | | | | + + + [...] | | | Fingerstick | performed at [facility];[address] | | LAB | | | | [address];[place], [place] | | | | | | [address] | | | | + + + [...] | | | Fingerstick | performed at [facility];[address] | | LAB | | | | [place] [address] | | | | | | [address] | | | | + + + [...] | | | Fingerstick | performed at [facility];[address] | | LAB | | | | [address];[place] | | | | | | [address] | | | | + + + [...] | | | Fingerstick | performed at [facility];[address] | | LAB | | | | [place] [address];[place] | | | | | | [address] | | | | + + + [...] | | | Fingerstick | performed at [facility];[address] | | LAB | | | | [address];[place] | | | | | | [address] | | | | + + + [...] | | | Fingerstick | performed at [facility];[address] | | LAB | | | | [address];[place], [place] | | | | | | [address] | | | | + + + [...] | | | Fingerstick | performed at [facility];[address] | | LAB | | | | [address];[place], [place] | | | | | | [address] | | | | + + + [...] | | | Fingerstick | performed at [facility];[address] | | LAB | | | | [place];[place] | | | | | | [address] | | | | + + + [...] | | | Fingerstick | performed at [facility];[address] | | LAB | | | | [place] [address];[place] | | | | | | [address] | | | | + + + [...] | | | Fingerstick | performed at [facility];[address] | | LAB | | | | [address];[place] | | | | | | [address] | | | | + + + [...] | | | Fingerstick | performed at [facility];[address] | | LAB | | | | [place] | | | | | | [address] | | | | + + + [...] | | | Fingerstick | performed at [facility];[address] | | LAB | | | | [place] | | | | | | [address] | | | | + + + [...] | | | Fingerstick | performed at [facility];8 | | LAB | | | | [place] [address];[place], [place] | | | | | | [address] | | | | + + + [...] | | Jefe: 0.48 m/s TV Dec Potter: 3.62 m/s2 TV Dec Time: 136.62 | | | ms TV E Jefe: 0.49 m/s TV E/A Ratio: 1.02 Chief Technician: TRINY | | | Authenticated by: Aleksandar [place] Report Date/Time: 05-14-2016 | | | 17:14:37 [...] | Index (A-L): 25.78 ml/m2LAAs A2C: 20.06 [id number] A-L A2C: 56.80 mlLAESV MOD A2C: | | 53.98 mlLALs A2C: 6.01 cmLAAs A4C: 18.67 [id number] A-L A4C: 45.70 mlLAESV MOD A4C: | | 43.69 mlLALs A4C: 6.47 cmHR: 94.31 BPMAV maxP.45 mmHgAV meanP.54 | | mmHgAV Vmax: 1.61 m/Abilio Vmean: 1.22 m/Abilio VTI: 27.30 cmAVA Vmax: 2.68 cm2AVA | | (VTI): 2.69 [id number] Vmax: 0.00 cm2/m2AVAI (VTI): 0.00 cm2/m2LVCI Dopp: 3.08 | | l/[id number] Dopp: 6.31 l/minHR: 85.80 BPMLVOT maxP.48 mmHgLVOT meanP.11 | | mmHgLVSI Dopp: 35.92 ml/m2LVSV Dopp: 73.65 mlLVOT Vmax: 1.36 m/sLVOT Vmean: 0.96 | | m/sLVOT VTI: 23.22 cmMCO: 392.13 msMV A Jefe: 1.50 m/sMV DecT: 213.25 msMV E | | Jefe: 0.88 m/sMV E/A Ratio: 0.59MV PHT: 74.39 msMVA By PHT: 2.95 [id number] e': | | 0.05 m/sSeptal E/e': 14.80RAP: 8 mmHgTV A Jefe: 0.48 m/sTV Dec Potter: 3.62 m/s2TV | | Dec Time: 136.62 msTV E Jefe: 0.49 m/sTV E/A Ratio: 1.02 Chief Technician: | | GDAuthenticated by: [facility] Date/Time: 05-14-2016 17:14:37 IMPRESSION: 1. | [...] A Jefe: 0.48 m/s | |TV Dec Potter: 3.62 m/s2 | |TV Dec Time: 136.62 ms | |TV E Jefe: 0.49 m/s | |TV E/A Ratio: 1.02 | | | |Chief Technician: TRINY | |Authenticated by: Aleksandar Dotson | [...] EXTERNAL LAB | | Testing performed at [address];[place] [address] MRSA PCR | | | NEGATIVE Testing performed at | | | [address];[place] [address] | | + + + + +---------+ [...] | | | Fingerstick | performed at [facility];[address] | | LAB | | | [address];[place], [place] | | | | | | [address] | | | | + + + [...] + + | [facility] Epic environment | EXTERNAL LAB | [...]
--- OUTSIDE RECORDS SUMMARY | ~2019-08-08 | XMS | Encounter Summary ---
Demographics + + + | Address | [address] | | | [place] [address] | + + + | Home Phone [...] + | Organization | [facility] | | | and [place] | + + + | Address | Unknown | + + + | Phone | Unavailable | + + + Support + + + + + | Name | Relationship | Address | Phone | + + + + + | Jessica Shepard | ECON | [address] | | | | | [place] | | | | | [address] | | + + + + + | Bel Solis | ECON | Unknown | | + + + + + Care Team Providers + +------+ + | Care Decontamination Technician Name | Role | Phone | [...] + + | 11/19/ | Hospital | [facility] | Jurgen Casiano | [place] | | 2018 - | Encounter | [facility] | MD Shayne [address] | encounter (Primary | | | | [address] [place] | [address] [place] | Dx); Fever, | | 11/25/ | | [facility] [place] [address] | [place] [address] | unspecified fever | | 2017 | | [phone] | [phone] | cause; Pneumonia due | | | | | | to infectious | | | | | Gray Perea MD | organism, | | | | | [address] | unspecified | | | | | [place], [place] | laterality, | | | | | [id number] | unspecified part of | | | | | | lung; Sepsis, due to | | | | | Mil Sandoval MD | unspecified | | | | | [address] | organism (HCC); | | | | | [place] | Insulin dependent | | | | | [address] | diabetes mellitus | | | | | | ([facility]); Other chronic | | | | | | osteomyelitis of | | | | | | right foot ([facility]); | | | | | | Peripheral vascular | | | | | | disease ([facility]) | +--------+ + + + + Social [...] other anesthesia was used during the case. [facility] t lower extremity was then scrubbed, [...] -PT/OT ordered Code Status: Full Code Disposition: [facility] Discharge Condition: Stable, very deconditioned and weak at baseline Pleasant, no distress RRR, no m/r/g CTA bilaterally Soft, obese, NT Ext WWP, right foot ulcer with deep wound, slight purulent drainage Contact information for after-discharge care Placement Destination [facility] . Specialty: [facility] Contact information: [address] [facility] [address] Discharge Medications New Medications Details [...] signed by: Justin Reyna MD, 11/25/2017 13:01 [facility] documented in this encounter Medications at [...] be different f rom the original. [facility]G Hospitalist Progress Note Reagan [...] pantoprazole Mechanical fall -PT/OT ordered Disposition : [facility] as soon as 11/25 Prophylaxis : [...] as outlined above. Justin Reyna 11/24/2017 18:16 [facility] Sang Duff MD - 11/24/2017 1:59 PM PDTWe are evaluating the patient for further medical rehabilitatio n services. He does not qualify per CMS guidelines for full inpatient rehab . I recommend he be transferred to SNF for further skilled therapies once he is cleared acute ly. Justin Rodriguez MD - 11/23/2017 2:[address] [facility] Hospitalist Progress Note Reagan [...] as outlined above. Justin Reyna 11/23/2017 14:24 [facility] orjuno, Simone VossARIM - 11/23/2017 1:58 PM PDT Foot & Ankle Surgery Progress Note Simone Aceves DPM Reagan Shepard Age/Gender 72 y.o. male Location [facility] MEDICAL Attending Mil Sandoval MD [...] Value Units Date/Time Culture, Wound, Smear, w/Anaerobe [[id number]] Collected: 11/21/17 1208 Order Status: Sent Lab Status: In process Updated: 11/21/17 1250 Specimen: Tissue from Toe, Fifth/Small, Right Narrative: The following orders were created for panel order Culture, Wound, Smear, w/Anaerobe. Procedure Abnormality Status --------- ------ Culture, Wound, Smear[[id number]] In process Culture, Anaerobic[[id number]] In process Please view results for these tests on the individual orders. 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 Hospitalist Progress Note Reagan [...] as outlined above. Justin Reyna 11/22/2017 17:40 [facility] anielle Guillermo, Telecom Coordinator - 11/22/2017 2:13 PM PDTFormatting of [...] hemisphere; Diabetes mellitus (HCC); Stroke (cerebrum) ([facility]); an d TBI (traumatic brain injury) ([facility]). No risk factors for MDR organisms. HPI: [...] Value Units Date/Time Culture, Wound, Smear, w/Anaerobe [[id number]] Collected: 11/21/17 1208 Order Status: Sent Lab Status: In process Updated: 11/21/17 1250 Specimen: Tissue from Toe, Fifth/Small, Right Narrative: The following orders were created for panel order Culture, Wound, Smear, w/Anaerobe. Procedure Abnormality Status --------- ------ Culture, Wound, Smear[[id number]] Preliminary result Culture, Anaerobic[[id number]] In process Please view results for these tests on the individual orders. Culture, Wound, Smear [[id number]] Collected: 11/21/17 1208 Order Status: Completed Lab Status: Preliminary result Updated: 11/22/17 1021 Specimen: Tissue from Toe, Fifth/Small, Right Culture 2+ Lactose Fermenting Gram Negative Bacilli Comment: Identification and susceptibility to follow. Gram Stain Result 2+ White Blood Cells 1+ Epithelial cells 2+ Gram negative rods Culture, Anaerobic [[id number]] Collected: 11/21/17 1208 Order Status: Sent Lab Status: In process Updated: 11/21/17 1250 Specimen: Tissue from Toe, Fifth/Small, Right Respiratory Virus Panel, NAAT [[id number]] Collected: 11/20/17 1257 Order Status: Completed Lab [...] DNA Not Detected Narrative: Performed at: [address] [place] [id number] Prosthetist: Jurgen Costa MD, Phone: [phone] Culture, Wound, Smear [[id number]] (Susceptibility) Collected: 11/20/17 0825 Order Status: Completed [...] Sulfamethoxazole <=20 ug/mL Sensitive Culture, Wound, Smear [[id number]] (Susceptibility) Collected: 11/19/172030 Order Status: Completed Lab [...] no longer reported. Culture, Respiratory, Lower, Smear [[id number]] Order Status: Sent Lab Status: No result Specimen: Body Fluid from Sputum, Expectorated Culture, Wound, Smear [[id number]] Order Status: Canceled Lab Status: No result Specimen: Tissue from Leg, Left Culture, Blood [[id number]] (Normal) Collected: 11/19/17 1537 Order Status: Completed Lab Status: Preliminary result Updated: 11/20/17 0351 Specimen: Blood from Peripheral Blood Culture No growth: Monitored continually by instrument for 5 days Culture, Blood [[id number]] (Normal) Collected: 11/19/17 1506 Order Status: Completed Lab Status: Preliminary result Updated: 11/20/17 0321 Specimen: Blood from Peripheral Blood Culture No growth: Monitored continually by instrument for 5 days Culture, Urine [[id number]] Collected: 11/19/17 1416 Order Status: Completed Lab [...] Monitoring Protocol Electronically signed by: Danielle Guillermo, Telecom Coordinator 11/22/2017 14:13 Associated attestation - Luther Hampton [...] Simone Shepard Age/Gender 72 y.o. male Location [facility] MEDICAL Attending Mil Sandoval MD [...] Value Units Date/Time Culture, Wound, Smear, w/Anaerobe [[id number]] Collected: 11/21/171207 Order Status: Sent Lab Status: In process Updated: 11/21/17 1250 Specimen: Tissue from Toe, Fifth/Small, Right Narrative: The following orders were created for panel order Culture, Wound, Smear, w/Anaerobe. Procedure Abnormality Status --------- ------ Culture, Wound, Smear[[id number]] In process Culture, Anaerobic[[id number]] In process Please view results for these tests on the individual orders. Culture, Wound, Smear [[id number]] Collected: 11/21/171207 Order Status: Sent Lab Status: In process Updated: 11/21/17 1250 Specimen: Tissue from Toe, Fifth/Small, Right Culture, Anaerobic [[id number]] Collected: 09/03/18 1208 Order Status: Sent Lab [...] hemisphere; Diabetes mellitus (HCC); Stroke (cerebrum) ([facility]); an d TBI (traumatic brain injury) ([facility]). . No risk factors for MDR organisms. [...] Value Units Date/Time Culture, Wound, Smear, w/Anaerobe [[id number]] Collected: 11/21/17 1208 Order Status: Sent Lab Status: In process Updated: 11/21/17 1250 Specimen: Tissue from Toe, Fifth/Small, Right Narrative: The following orders were created for panel order Culture, Wound, Smear, w/Anaerobe. Procedure Abnormality Status --------- ------ Culture, Wound, Smear[[id number]] In process Culture, Anaerobic[[id number]] In process Please view results for these tests on the individual orders. Culture, Wound, Smear [[id number]] Collected: 11/21/17 1208 Order Status: Sent Lab Status: In process Updated: 11/21/17 1250 Specimen: Tissue from Toe, Fifth/Small, Right Culture, Anaerobic [[id number]] Collected: 11/21/17 1208 Order Status: Sent Lab Status: In process Updated: 11/21/17 1250 Specimen: Tissue from Toe, Fifth/Small, Right Respiratory Virus Panel, NAAT [[id number]] Collected: 11/20/17 1257 Order Status: Sent Lab Status: In process Updated: 11/20/17 1302 Specimen: Tissue from Nasopharynx Culture, Wound, Smear [[id number]] Collected: 11/20/17 0825 Order Status: Completed Lab Status: Preliminary result Updated: 11/21/17 0739 Specimen: Tissue from Foot, Right Culture 1+ Gram Negative Jayesh, NOT Pseudomonas Comment: Identification and susceptibility to follow. 1+ Gram Positive Cocci Comment: Isolating for additional information. Gram Stain Result 1+ White Blood Cells No organisms seen Culture, Wound, Smear [[id number]] (Susceptibility) Collected: 11/19/17 203 Order Status: Completed [...] <=20 ug/mL Sensitive Culture, Respiratory, Lower, Smear [[id number]] Order Status: Sent Lab Status: No result Specimen: Body Fluid from Sputum, Expectorated Culture, Wound, Smear [[id number]] Order Status: Canceled Lab Status: No result Specimen: Tissue from Leg, Left Culture, Blood [[id number]] (Normal) Collected: 11/19/17 1537 Order Status: Completed Lab Status: Preliminary result Updated: 11/20/17 0351 Specimen: Blood from Peripheral Blood Culture No growth: Monitored continually by instrument for 5 days Culture, Blood [[id number]] (Normal) Collected: 11/19/17 1506 Order Status: Completed Lab Status: Preliminary result Updated: 11/20/17 0321 Specimen: Blood from Peripheral Blood Culture No growth: Monitored continually by instrument for 5 days Culture, Urine [[id number]] Collected: 11/19/17 1416 Order Status: Completed Lab [...] Hoff MD - 11/21/2017 11:05 AM PDT [place], [place] HOSPITALIST PROGRESS NOTE Patient: Reagan Shepard : 1945: Age: 72 y.o. MedRec: [id number] Admission date: 11/19/2017 Hospital day # : [...] tablet 17.2 mg 17.2 mg Oral QAM Mli Sandoval MD 17.2 mg at 11/20/17 0807 [...] E' Septal Velocity 4.79 cm/s MV Deceleration Sharkey 336.24 cm/s2 MV Deceleration Time 332.96 msec [...] Value Units Date/Time Respiratory Virus Panel, NAAT [[id number]] Collected: 11/20/17 1257 Order Status: Sent Lab Status: In process Updated: 11/20/17 1302 Specimen: Tissue from Nasopharynx Culture, Wound, Smear [[id number]] Collected: 11/20/17 0825 Order Status: Completed Lab Status: Preliminary result Updated: 11/21/17 0739 Specimen: Tissue from Foot, Right Culture 1+ Gram Negative Jayesh, NOT Pseudomonas Comment: Identification and susceptibility to follow. 1+ Gram Positive Cocci Comment: Isolating for additional information. Gram Stain Result 1+ White Blood Cells No organisms seen Culture, Wound, Smear [[id number]] (Susceptibility) Collected: 11/19/172030 Order Status: Completed Lab [...] + Sulfamethoxazole <=20 ug/mL Sensitive Culture, Blood [[id number]] (Normal) Collected: 11/19/17 1537 Order Status: Completed Lab Status: Preliminary result Updated: 11/20/17 0351 Specimen: Blood from Peripheral Blood Culture No growth: Monitored continually by instrument for 5 days Culture, Blood [[id number]] (Normal) Collected: 11/19/17 1506 Order Status: Completed Lab Status: Preliminary result Updated: 11/20/17 0321 Specimen: Blood from Peripheral Blood Culture No growth: Monitored continually by instrument for 5 days Culture, Urine [[id number]] Collected: 11/19/17 1416 Order Status: Completed Lab [...] Other Pharmacy Consult Nasim Jimenez 11/21/2017 11:05 [facility] Nasim Hoff MD - 11/20/2017 10:04 AM PDT [facility] [place] HOSPITALIST PROGRESS NOTE Patient: Reagan Shepard : 1945: Age: 72 y.o. MedRec: [id number] Admission date: 11/19/2017 Hospital day # : [...] PH UA 5.0 5.0 - 8.0 Specific [place] 1.017 1.001 - 1.030 PROTEIN UA 30 [...] Component Value Units Date/Time Culture, Wound, Smear [[id number]] Collected: 11/20/17824 Order Status: Sent Lab Status: In process Updated: 11/20/17828 Specimen: Tissue from Foot, Right Culture, Wound, Smear [[id number]] Collected: 11/19/172030 Order Status: Completed Lab Status: Preliminary result Updated: 11/20/17899 Specimen: Tissue from Leg, Lower, Right Culture 2+ Gram Negative Jayesh, NOT Pseudomonas Comment: Identification and susceptibility to follow. 1+ Gram Positive Cocci Comment: Isolating for additional information. Gram Stain Result No white blood cells (PMNs) seen 1+ Gram negative rods Culture, Blood [[id number]] (Normal) Collected: 11/19/17 1537 Order Status: Completed Lab Status: Preliminary result Updated: 11/20/17 0351 Specimen: Blood from Peripheral Blood Culture No growth: Monitored continually by instrument for 5 days Culture, Blood [[id number]] (Normal) Collected: 11/19/17 1506 Order Status: Completed Lab Status: Preliminary result Updated: 11/20/17 0321 Specimen: Blood from Peripheral Blood Culture No growth: Monitored continually by instrument for 5 days Culture, Urine [[id number]] (Normal) Collected: 11/19/17 1416 Order Status: Completed [...] Other Pharmacy Consult Nasim Jimenez 11/20/2017 10:05 [facility] Khadra Mac Phar mD - 11/20/2017 [...] (HCC); an d TBI (traumatic brain injury) ([facility]). . No risk factors for MDR organisms. [...] Component Value Units Date/Time Culture, Wound, Smear [[id number]] Collected: 11/20/17 0825 Order Status: Sent Lab Status: In process Updated: 11/20/17828 Specimen: Tissue from Foot, Right Culture, Wound, Smear [[id number]] Collected: 11/19/172030 Order Status: Completed Lab Status: Preliminary result Updated: 11/20/17 09 Specimen: Tissue from Leg, Lower, Right Culture 2+ Gram Negative Jayesh, NOT Pseudomonas Comment: Identification and susceptibility to follow. 1+ Gram Positive Cocci Comment: Isolating for additional information. Gram Stain Result No white blood cells (PMNs) seen 1+ Gram negative rods Culture, Respiratory, Lower, Smear [[id number]] Order Status: Sent Lab Status: No result Specimen: Body Fluid from Sputum, Expectorated Culture, Wound, Smear [[id number]] Order Status: Canceled Lab Status: No result Specimen: Tissue from Leg, Left Culture, Blood [[id number]] (Normal) Collected: 11/19/17 1537 Order Status: Completed Lab Status: Preliminary result Updated: 11/20/17 0351 Specimen: Blood from Peripheral Blood Culture No growth: Monitored continually by instrument for 5 days Culture, Blood [[id number]] (Normal) Collected: 11/19/17 1506 Order Status: Completed Lab Status: Preliminary result Updated: 11/20/17 0321 Specimen: Blood from Peripheral Blood Culture No growth: Monitored continually by instrument for 5 days Culture, Urine [[id number]] (Normal) Collected: 11/19/17 1416 Order Status: Completed [...] hemisphere; Diabetes mellitus (HCC); Stroke (cerebrum) ([facility]); an d TBI (traumatic brain injury) ([facility]). . No risk factors for MDR organisms. [...] Value Units Date/Time Culture, Respiratory, Lower, Smear [[id number]] Order Status: Sent Lab Status: No result Specimen: Body Fluid from Sputum, Expectorated Culture, Wound, Smear [[id number]] Order Status: Sent Lab Status: No result Specimen: Tissue from Leg, Left Culture, Blood [[id number]] Collected: 11/19/17 1537 Order Status: Sent Lab Status: In process Updated: 11/19/17 1543 Specimen: Blood from Peripheral Blood Culture, Blood [[id number]] Collected: 11/19/17 1506 Order Status: Sent Lab Status: In process Updated: 11/19/17 1511 Specimen: Blood from Peripheral Blood Culture, Urine [[id number]] Collected: 11/19/17 1416 Order Status: Sent Lab [...] K?MRN: | | | | | | [id number] | | | [id number] | | | his | | | [...] | | | ent/06 | | | [id number] | | | -9b07- | | | [...] | | | St. | | | [place] | | | y H. | | [...] | | | St. | | | [place] | | | y | | | [...] + | [facility] | [address] | [place] | [phone] | | [facility] | | [address] | | | - LABORATORY | | [...] [address] | [place] | [phone] | | [facility] | | [address] | | | - LABORATORY | | [...] [address] | [place] | [phone] | | [facility] | | [address] | | | - LABORATORY | | [...] 15 | 7 - 18 mg/dL | [facility] | | | | | | [facility] | | | | | | MEDICAL | | | | | | CENTER - | | | | | | LABORATORY | | + + + + + + | Creatinine | 0.91 | 0.60 - 1.30 | [facility] | | | | | mg/dL | [facility] | | | | | | MEDICAL | | | | | | CENTER - | | | | | | LABORATORY | | + + + + + + | eGFR if not | >60Comment: GLOMERULAR | >=60 | [facility] | | | | FILTRATION | mL/min/1.73m2 | [facility] | | | [facility] | RATE,ESTIMATED | | MEDICAL | | | | mL/min/1.45b8Xgwc than | | CENTER - | | [...] + | [facility] | [address] | [place] | [phone] | | [facility] | | [address] | | | - LABORATORY | | [...] + | [facility] | [address] | [place], [place] | [phone] | | [facility] | | [address] | | | - LABORATORY | | [...] + + | Performing | Address | City/State/[facility] | Phone Number | | Organization | | | | + + + + + | [facility] | [address] | [place] | [phone] | | [facility] | | [address] | | | - LABORATORY | | [...] [address] | [place] | [phone] | | [facility] | | [address] | | | - LABORATORY | | [...] [address] | [place] | [phone] | | [facility] | | [address] | | | - LABORATORY | | [...] [address] | [place] | [phone] | | [facility] | | [address] | | | - LABORATORY | | [...] | 0.91 | 0.60 - 1.30 | [facility] | | | | | mg/dL | [facility] | | | | | | MEDICAL | | | | | | CENTER - | | | | | | LABORATORY | | + + + + + + | eGFR if not | >60Comment: GLOMERULAR | >=60 | [facility] | | | | FILTRATION | mL/min/1.73m2 | [facility] | | | [place] | RATE,ESTIMATED | | MEDICAL | | | | mL/min/1.22t0Ihrm than | | CENTER - | | [...] + | [facility] | [address] | [place] | [phone] | | [facility] | | [address] | | | - LABORATORY | | [...] + | [facility] | [address] | [place] | [phone] | | [facility] | | [address] | | | - LABORATORY | | [...] [address] | [place] | [phone] | | [facility] | | [address] | | | - LABORATORY | | [...] [address] | [place] | [phone] | | [facility] | | [address] | | | - LABORATORY | | [address] | [place] | [phone] | | [facility] | | [address] | | | - LABORATORY | | [...] ST. | [address] | [place] | [phone] | | [facility] | | [address] | | | - LABORATORY | | [...] [address] | [place] | [phone] | | [facility] | | [address] | | | - LABORATORY | | [...] | 0.87 | 0.60 - 1.30 | [facility] | | | | | mg/dL | [facility] | | | | | | MEDICAL | | | | | | CENTER - | | | | | | LABORATORY | | + + + + + + | eGFR if not | >60Comment: GLOMERULAR | >=60 | [facility] | | | | FILTRATION | mL/min/1.73m2 | [facility] | | | [place] | RATE,ESTIMATED | | MEDICAL | | | | mL/min/1.34m0Xzfa than | | CENTER - | | [...] + | [facility] | [address] | [place] | [phone] | | [facility] | | [address] | | | - LABORATORY | | [...] [address] | [place] | [phone] | | [facility] | | [address] | | | - LABORATORY | | [...] [address] | [place] | [phone] | | [facility] | | [address] | | | - LABORATORY | | [...] + | [facility] | [address] | [place] | [phone] | | [facility] | | [address] | | | - LABORATORY | | [...] + | [facility] | [address] | [place] | [phone] | | [facility] | | [address] | | | - LABORATORY | | [...] [address] | [place] | [phone] | | [facility] | | [address] | | | - LABORATORY | | [...] [address] | [place] | [phone] | | [facility] | | [address] | | | - LABORATORY | | [...] [address] | [place] | [phone] | | [facility] | | [address] | | | - LABORATORY | | [...] + | [facility] | [address] | [place] | [phone] | | [facility] | | [address] | | | - LABORATORY | | [...] mL/min/1.73m2 | [facility] | | | [facility] | RATE,ESTIMATED | | MEDICAL | | | | mL/min/1.45k4Jrau than | | CENTER - | | [...] [address] | [place] | [phone] | | [facility] | | [address] | | | - LABORATORY | | [...] [address] | [place] | [phone] | | [facility] | | [address] | | | - LABORATORY | | [...] + | [facility] | [address] | [place] | [phone] | | [facility] | | [address] | | | - LABORATORY | | [...] [address] | [place] | [phone] | | [facility] | | [address] | | | - LABORATORY | | [...] [address] | [place] | [phone] | | [facility] | | [address] | | | - LABORATORY | | [...] | | | | aerogenesComment: | | [facility] | | | | Consider combination | [...] [address] | [place] | [phone] | | [facility] | | [address] | | | - LABORATORY | | [...] + | [facility] | [address] | [place] | [phone] | | [facility] | | [address] | | | - LABORATORY | | [...] [address] | [place] | [phone] | | [facility] | | [address] | | | - LABORATORY | | [...] [address] | [place] | [phone] | | [facility] | | [address] | | | - LABORATORY | | [...] [address] | [place] | [phone] | | [facility] | | [address] | | | - LABORATORY | | [...] [address] | [place] | [phone] | | [facility] | | [address] | | | - LABORATORY | | [...] [address] | [place] | [phone] | | [facility] | | [address] | | | - LABORATORY | | [...] | | | | | | [facility] | | | | | | MEDICAL [...] + | [facility] | [address] | [place] | [phone] | | [facility] | | [address] | | | - LABORATORY | | [...] 0.20 (H) | 0.00 - 0.10 | [facility] | | | Basophils | | K/uL | [facility] | | | | | [...] [address] | [place] | [phone] | | [facility] | | [address] | | | - LABORATORY | | [...] 14 | 7 - 18 mg/dL | [facility] | | | | | | [facility] | | | | | | MEDICAL | | | | | | CENTER - | | | | | | LABORATORY | | + + + + + + | Creatinine | 1.02 | 0.60 - 1.30 | [facility] | | | | | mg/dL | [facility] | | [facility] | | | MEDICAL | | | | | | CENTER - | | | | | | LABORATORY | | + + + + + + | eGFR if not | >60Comment: GLOMERULAR | >=60 | [facility] | | | | FILTRATION | mL/min/1.73m2 | [facility] | | | ARMENIAN | RATE,ESTIMATED | | MEDICAL | | | | mL/min/1.57r2Cetp than | | CENTER - | | [...] + | [facility] | [address] | [place] | [phone] | | [facility] | | [address] | | | - LABORATORY | | [...] [address] | [place] | [phone] | | [facility] | | [address] | | | - LABORATORY | | [...] ST. | [address] | [place] | [phone] | | [facility] | | [address] | | | - LABORATORY | | [...] | | chronic inflammation suggestive of osteomyelitis. JVR:[facility]:C2NR | | | MICROSCOPIC EXAMINATION: Histologic [...] decalcified in decal | | | STAT).. am:AMB:[facility] PERFORMING LABORATORY: The technical | | | component was performed by [facility], [address] [place] [address] | | | [place] [address] (Supervisor Melt House: Khadra Gill MD; CLIA# | | | [id number]). Professional interpretation was performed by [facility] | | | [facility], [address] | | | [place] [address] (Supervisor Melt House: Ambrosio | | | [place]). Diagnostician: [...] [address] | [place] | [phone] | | [facility] | | [address] | | | - LABORATORY | | [...] | | | | | | n Sharkey | | | | | + +---------+ [...] ST. | [address] | [place] | [phone] | | [facility] | | [address] | | | - LABORATORY | | [...] + + | Performing | Address | City/State/[facility] Cent[facility] | Phone Number | [...] + | Performed at: 01 - [place] [address], | REFERENCE LAB | | [place], [place] [id number] Prosthetist: Jurgen Costa MD, Phone: | NIKKI - BKElba | | [phone] | | + + + + + + + + | Performing | Address | City/State/Zipcode | Phone Number | | Organization | | | | + + + + + | REFERENCE LAB | [address] | [place], [place] | [phone] | | [facility] | [address] | [address] | | + + + + + [...] + | [facility] | [address] | [place] | [phone] | | [facility] | | [address] | | | - LABORATORY | | [...] [address] | [place] | [phone] | | [facility] | | [address] | | | - LABORATORY | | [...] + | [facility] | [address] | [place] | [phone] | | [facility] | | [address] | | | - LABORATORY | | [...] + | [facility] | [address] | [place] | [phone] | | [facility] | | [address] | | | - [...] [address] | [place] | [phone] | | [facility] | | [address] | | | - LABORATORY | | [...] [address] | [place] | [phone] | | [facility] | | [address] | | | - LABORATORY | | [...] [address] | [place] | [phone] | | [facility] | | [address] | | | - LABORATORY | | [...] + | [facility] | [address] | [place], [place] | [phone] | | [facility] | | [address] | | | - LABORATORY | | [...] [address] | [place] | [phone] | | [facility] | | [address] | | | - LABORATORY | | [...] 15 | 7 - 18 mg/dL | [facility] | | | | | | [facility] | | | | | MEDICAL | | | | | | CENTER - | | | | | | LABORATORY | | + + + + + + | Creatinine | 0.91 | 0.60 - 1.30 | [facility] | | | | | mg/dL | [facility] | | | | | | MEDICAL | | | | | | CENTER - | | | | | | LABORATORY | | + + + + + + | eGFR if not | >60Comment: GLOMERULAR | >=60 | [facility] | | | | FILTRATION | mL/min/1.73m2 | [facility] | | | ARMENIAN | RATE,ESTIMATED | | MEDICAL | | | | mL/min/1.62r5Iiqr than | | CENTER - | | [...] + | [facility] | [address] | [place] | [phone] | | [facility] | | [address] | | | - LABORATORY | | [...] [address] | [place] | [phone] | | [facility] | | [address] | | | - LABORATORY | | [...] [address] | [place] | [phone] | | [facility] | | [address] | | | - LABORATORY | | [...] [address] | [place] | [phone] | | [facility] | | [address] | | | - LABORATORY | | [...] + | [facility] | [address] | [place] | [phone] | | [facility] | | [address] | | | - LABORATORY | | [...] [address] | [place] | [phone] | | [facility] | | [address] | | | - LABORATORY | | [...] [address] | [place] | [phone] | | [facility] | | [address] | | | - LABORATORY | | [...] + | [facility] | [address] | [place] | [phone] | | [facility] | | [address] | | | - LABORATORY | | [...] [address] | [place] | [phone] | | [facility] | | [address] | | | - LABORATORY | | [...] | | | | | mg/dL | [facility] | | | | | | MEDICAL | | | | | | CENTER - | | | | | | LABORATORY | | + + + + + + | eGFR if not | >60Comment: GLOMERULAR | >=60 | [facility] | | | | FILTRATION | mL/min/1.73m2 | [facility] | | | ARMENIAN | RATE,ESTIMATED | | MEDICAL | | | | mL/min/1.89u0Irlb than | | CENTER - | | [...] | | | | | mg/dL | [facility] | | | | | | MEDICAL [...] [address] | [place] | [phone] | | [facility] | | [address] | | | - LABORATORY | | [...] [address] | [place] | [phone] | | [facility] | | [address] | | | - LABORATORY | | [...] + + | Performing | Address | City/State/[facility] Cent[facility]ode | Phone Number | [...] | REFERENCE | | | | of [facility] | | LAB [facility] | | | | standards require a | | - [facility] | | | | culture to beperformed | | | | | | on CSF specimens | | | | | | submitted for bacterial | | | | | | antigen testing.(CAP | | | | | | [id number]) Urine | | | | | | specimens will not be | | | | | | cultured. | | | | + + + + + + + + | Specimen | + + | Urine | + + + + + | Narrative | Performed At | + + + | Performed at: 01 - [place] [place] [address], | REFERENCE LAB | | [place], [place] [id number] Prosthetist: Christ Deal MD, Phone: | NIKKI - NICOLÁS | | [phone] | | + + + + + + + + | Performing | Address | City/State/Zipcode | Phone Number | | Organization | | | | + + + + + | REFERENCE LAB | [address] | [place], [place] | [phone] | | [facility] | [facility] | [address] | | + + + + + [...] + | [facility] | [address] | [place] | [phone] | | [facility] | | [address] | | | - LABORATORY | | [...] - 1.030 | [facility] | | | [place], | | | [facility] | | [...] [address] | [place] | [phone] | | [facility] | | [address] | | | - LABORATORY | | [...] | | | | | | use Rhodes 10/325 if ordered. If | | | [...] | | | | last modification) on [facility] 11/24/17 | | | | | | [...] | | | | | | | 4373-2068 Use NIGHT DOSE for | | | | | | | doses scheduled: HS, 3AM, | | | | | | | Nighttime 5945-5278, | | | | | | + [...] scheduled: AC, NPO, Daytime | | | 6689-2536 Use NIGHT DOSE for | | | doses scheduled: HS, 3AM, | | | Nighttime 9079-6856, | | + +---+ | | | [...] | | | | | | | 1120-1515 Use NIGHT DOSE for | | | | | | | doses scheduled: HS, 3AM, | | | | | | | Nighttime 7696-3251, | | | | | | + [...] | | | | | Subcutaneous, ONCE, [facility] 11/24/17 at | | | | | [...]
--- OUTSIDE RECORDS SUMMARY | ~2019-08-08 | XMS | Clinical Summary ---
Demographics + + + | Address | [address] | | | [place] [address] | + + + | Home Phone [...] Author | [facility] [employer] (Historical as of | | | 11-04-18) | + + + | Organization | [facility] (Historical as of | | | 11-04-18) [...] Team Providers + +------+ + | Care Music Education Adjunct Professor Name | Role | Phone | [...] + + + | Overview: Problem List Demo Specialist Utility | + + + + + | Acute left hemiparesis (HCC) | 05/14/2016 | + + + | Type 2 diabetes mellitus with hyperglycemia, with long-term | 05/14/2016 | | current use of insulin ([facility]) | | + + + | [...] + + | MEDICARE | MEDICA | [id number] | | | [address] | | | RE | | | | [place] [phone] | | | IP-OP | | | | | + +--------+ +------+ + + | VETERANS | VETERA | [id number] | | [phone] [employer]EE [employer] [id number] | | ADMINISTRATION | [place] | | | [phone] | | | ADMINI | | | | [place] | | | [place] | | | | [address] | | | ON | | | [...] | Self | [birth year] | Home: | [address] | | | al/Fam | | 7 | +- | [place] | | | carlos | | | [address] | [address] | + +--------+ +--------+ + + | SAROJ AMEZQUITA | Vetera | Self | [birth year] | Home: | [address] | | | ns | | 1944 | +- | [place] | | | Admini | | | [address] | [address] | | | strati | | | | | | | on | | | | | + +--------+ +--------+ + +
--- OUTSIDE RECORDS SUMMARY | ~2019-08-08 | XMS | Encounter Summary ---
Demographics + + + | Address | [address] | | | [place] [address] | + + + | Home Phone | | + + + | Preferred Language | Unknown | + + + | Marital Status | | + + + | Uatsdin Affiliation | 1076 | + + + | Race | Unknown | + + + | Ethnic Group | Unknown | + + + Author + + + | Author | [facility] | | | and [place] | + + + | Organization | [facility] | | | and [place] | + + + | Address | Unknown | + + + | Phone | Unavailable | + + + Support + + + + + | Name | Relationship | Address | Phone | + + + + + | Jessica Shepard | ECON | [address] | | | | | [place] | | | | | [address] | | + + + + + | Bel Solis | ECON | Unknown | | + + + + + Care Team Providers + +------+ + | Care Webbing Inspector Name | Role | Phone | [...] [place] | | | | | | [address] | | | | | | [phone] | | | +--------+ + + + [...]
--- OUTSIDE RECORDS SUMMARY | ~2019-08-08 | XMS | Encounter Summary ---
Demographics + + + | Address | [address] | | | [place] [address] | + + + | Home Phone [...] + | Jessica Shepard | ECON | [address] | | | | | [place] | | | | | [address] | | + + + + + | Bel Solis | ECON | Unknown | | + + + + + Care Team Providers + +------+ + | Care Hand I Blocker Name | Role | Phone | + +------+ + | Jamar Manuel MD | PCP | | + +------+ + Encounter Details +--------+ + + + + | Date | Type | Department | Care Team | Description | +--------+ + + + + | 01/03/ | Lab | [facility] | Toby Ortiz | Other acute | | 2018 | Requisition | [facility] | MD [address] | osteomyelitis, right | | | | [address] [place] | [facility] | ankle and foot | | | | [place], [place] | [facility] [place] [address] | ([facility]); Diabetes | | | | [address] | [phone] | mellitus due to | | | | [phone] | | underlying condition | | | | | | with foot ulcer | | | | | | (CODE) ([facility]); Other | | | | | | ferry terminal agent (current) | | | | | | [...] section. | | | | | ([facility]) Diabetes | | | | | | mellitus due to | | | | | | underlying condition | | | | | | with foot ulcer | | | | | | (CODE) ([facility]) Other | | | | | | ferry terminal agent (current) | | | | | | [...] | | | | | (CODE) ([facility]) Other | | | | | | ferry terminal agent (current) | | | | | | drug therapy | | + +--------+ + + + | C-REACTIVE PROTEIN | Routin | 01/03/2018 | Other acute | Results for this | | | e | 9:45 AM | osteomyelitis, right | procedure are in the | | | | PDT | ankle and foot | results section. | | | | | ([facility]) Diabetes | | | | | | mellitus due to | | | | | | underlying condition | | | | | | with foot ulcer | | | | | | (CODE) ([facility]) Other | | | | | | ferry terminal agent (current) | | | | | | [...] section. | | | | | ([facility]) Diabetes | | | | | | mellitus due to | | | | | | underlying condition | | | | | | with foot ulcer | | | | | | (CODE) ([facility]) Other | | | | | | [...] 12 | 7 - 18 mg/dL | [facility] | | | | | | [facility] | | | | | | MEDICAL | | | | | | CENTER - | | | | | | LABORATORY | | + + + + + + | Creatinine | 0.63 | 0.60 - 1.30 | [facility] | | | | | mg/dL | [facility] | | | | | | MEDICAL | | | | | | CENTER - | | | | | | LABORATORY | | + + + + + + | eGFR if not | >60Comment: GLOMERULAR | >=60 | [facility] | | | | FILTRATION | mL/min/1.73m2 | [facility] | | | [facility]UNG[facility]IAN | RATE,ESTIMATED | | MEDICAL | | | | mL/min/1.14c6Xxsp than | | CENTER - | | [...] + | [facility] | [address] | [place] | [phone] | | [facility] | | [address] | | | - LABORATORY | | [...] [address] | [place] | [phone] | | [facility] | | [address] | | | - LABORATORY | | [...] + | [facility] | [address] | [place] | [phone] | | [facility] | | [address] | | | - LABORATORY | | [...] [facility] | | | | | | [facility] | | | | | | MEDICAL | | | | | | CENTER - | | | | | | LABORATORY | | + + + + + + | RBC | 4.83 | 4.30 - 5.70 | [facility] | | | | | M/uL | [facility] | | | | | | [...] [address] | [place] | [phone] | | [facility] | | [address] | | | - LABORATORY | | | | + + + + + documented in this encounter Visit Diagnoses + + | Diagnosis | + + | Other acute osteomyelitis, right ankle and foot (HCC) | + + | 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
--- OUTSIDE RECORDS SUMMARY | ~2019-08-08 | XMS | Encounter Summary ---
Demographics + + + | Address | [address] | | | [place] [address] | + + + | Home Phone [...] + | Jessica Shepard | ECON | [address] | | | | | [place] | | | | | [address] | | + + + + + | Bel Solis | ECON | Unknown | | + + + + + Care Team Providers + +------+ + | Care Facility Worker Name | Role | Phone | + +------+ + | Jamar Manuel MD | PCP | | + +------+ + Encounter Details +--------+ + + + + | Date | Type | Department | Care Team | Description | +--------+ + + + + | 04/10/ | Anesthesia | [facility] | Haroldo Ford, | | | 2019 | [facility] | HEALTH INFORMATICS ADVISOR [address] | | | | | OPERATING RO[address] | [place] [address] | | | | | [address] | [phone] | | | | | [place], [place] | | | | | | [address] | Eli Davies, | | | | | [phone] | Gina HEALTH INFORMATICS ADVISOR [address] | | | | | | [address] | | | | | | [place] [address] | | | | | | [phone] | | | | | | | [...] Dhara Mendez RN | | IV | qvbr-lrw-tikywb catheter system; | | | | | [...]
--- OUTSIDE RECORDS SUMMARY | ~2019-08-08 | XMS | Encounter Summary ---
Demographics + + + | Address | [address] | | | [place] [address] | + + + | Home Phone | | + + + | Preferred Language | Unknown | + + + | Marital Status | | + + + | Latter Day Affiliation | 1076 | + + + [...] + | Jessica Shepard | ECON | [address] | | | | | [place] | | | | | [address] | | + + + + + | Bel Solis | ECON | Unknown | | + + + + + Care Team Providers + +------+ + | Care Electronic Die Maker Name | Role | Phone [...] + + | 05/11/ | Documentati | [facility] | Nimo Westbrook, | Other (Labs from | | 2019 | on | INFECTIOUS DISEASE | Travel Counselor | [facility] | | | | [address] | | 04/26/2019- | | | | [place] | | 0) | | | | [address] | | | | | | [phone] | | | +--------+ + + + [...] of this encounter Progress Notes Nimo Westbrook, Travel Counselor - 05/11/2019 1:36 PM PST*Labs from [facility] 08/2019 (CBC,BMP,VANCOMYCIN TROUGH).. *Labs from [facility] 05/01/2019 (CBC,CMP, ESR,CRP, VANCOMYCIN TROUGH).. *Labs from [facility] 05/03/2019 (CMP,VANCOMYCIN TROUGH). *Labs from [facility] 05/06/2019 (BMP,VANCOMYCIN TROUGH). *Labs from [facility] 05/09/2019 (BMP,VANCOMYCIN TROUGH RECEIVED: 05/10/2019 Labs were abstracted into [employer] and sent to scan. Kaye CMA Tdocumented [...] + + | REFERENCE LAB | [address] | [place] | [phone] | | [facility] | | [address] | | + + + + + [...] + + | REFERENCE LAB | [address] | [place] | [phone] | | [facility] | | [address] | | + + + + + [...] + + + | REFERENCE LAB | [address] | [place] | [phone] | | [facility] | | [address] | | + + + + + [...] + + | REFERENCE LAB | [address] | [place] | [phone] | | [facility] | | [address] | | + + + + + [...] [address] | [place] | [phone] | | [facility] | | [address] | | + + + + + [...] + + | REFERENCE LAB | [address] | [place], [place] | [phone] | | [facility] | | [address] | | + + + + + [...] + | REFERENCE LAB | [address] [facility] | [place], [place] | [phone] | | [facility] | | [address] | | + + + + + [...] + + | REFERENCE LAB | [address] | [place] | [phone] | | [facility] | | [address] | | + + + + + [...] [address] | [place] | [phone] | | [facility] | | [address] | | + + + + + [...] [address] | [place] | [phone] | | [facility] | | [address] | | + + + + + [...] + + | REFERENCE LAB | [address] [facility] | [place] | [phone] | | [facility] | | [address] | | + + + + + [...] + + | REFERENCE LAB | [address] | [place] | [phone] | | [facility] | | [address] | | + + + + + [...] + + | REFERENCE LAB | [address] | [place] | [phone] | | [facility] | | [address] | | + + + + + [...] [address] | [place] | [phone] | | [facility] | [address] | [address] | | | LABORATORY | | | | + + + + + | REFERENCE LAB | [address] [facility] | [place], [place] | | | [facility] | Blvd[address] | [address] | | | LABORATORY | | | [...]
--- OUTSIDE RECORDS SUMMARY | ~2019-08-08 | XMS | Encounter Summary ---
Demographics + + + | Address | [address] | | | [place] [address] | + + + | Home Phone [...] + | Jessica Shepard | ECON | [address] | | | | | [place] | | | | | [address] | | + + + + + | Bel Solis | ECON | Unknown | | + + + + + Care Team Providers + +------+ + | Care Process Improvement Analyst Name | Role | Phone | [...] | | | | | (HCC) | [facility] | | | | | | Procedures | [address] | | | | | | VAS Lwr [address] | Phone: | | | | | | Art Bilat w | [phone] | | | | | | CINDY Multi | Fax: | | | | | | Lvl | [phone] | | +--------+--------+ + + + + Reason for Visit + + + | Reason | Comments | + + + | Follow-up | | + + + Encounter Details +--------+---------+ + + + | Date | Type | Department | Care Team | Description | +--------+---------+ + + + | 05/21/ | Office | [facility] | Mika Tim, DNP | Peripheral vascular | | 2020 | Visit | VASCULAR SURGERY | [address] | disease (HCC) | | | | [address] [place] | [place], [place] | (Primary Dx); S/P | | | | [place], [place] | [address] | arterial stent; S/P | | | | [address] | | femoral-popliteal | | | | [phone] | | bypass surgery; | | | [...] Tim DNP - 05/22/2019 10:30 AM [facility] [address] [place] [address] Office: [phone] DATE OF VISIT: 05/22/2019 PATIENT NAME: Reagan Shepard : 1945; AGE: 74 y.o.; Sex:M PHONE NUMBER: ; ; PROVIDER: Mika Tim DNP PRIMARY CARE / REFERRING PHYSICIAN: No ref. provider found / Jamar Manuel MD / NORA PAZ / [place] [address] REASON FOR EVALUATION / CHIEF COMPLAINT: Vascular [...] have been stable. He is staying at [facility] in [place]. Mariaelena allen has not followed up with his analytic manager Dr. Ceballos yet. He is taking aspirin [...] to bilateral feet ulcers. Follow up with analytic manager soon. Return to vascular clinic in 1 [...]
--- OUTSIDE RECORDS SUMMARY | ~2019-08-08 | XMS | Encounter Summary ---
Demographics + + + | Address | [address] | | | [place] [address] | + + + | Home Phone | | + + + | Preferred Language | Unknown | + + + | Marital Status | | + + + | Catholic Affiliation | 1076 | + + + | Race | Unknown | + + + | Ethnic Group | Unknown | + + + Author + + + | Author | [facility] | | | and [place] | + + + | Organization | [facility] | | | and [place] | + + + | Address | Unknown | + + + | Phone | Unavailable | + + + Support + + + + + | Name | Relationship | Address | Phone | + + + + + | Jessica Sheprad | ECON | [address] | | | | | [place] | | | | | [address] | | + + + + + | Bel Solis | ECON | Unknown | | + + + + + Care Team Providers + +------+ + | Care Epic Specialist Name | Role | Phone | + +------+ + | Dian Lr NP | PCP | | + +------+ + Encounter Details +--------+ + + + + | Date | Type | Department | Care Team | Description | +--------+ + + + + | 07/31/ | Orders Only | [facility] | Conversion | | | 2019 | | INFECTIOUS DISEASE | Transaction, | | | | | [address] | Provider Unknown | | | | | [place], [place] | | | | | | [address] | (Fax) | | | | | [phone] | | | +--------+ + + + [...]
--- OUTSIDE RECORDS SUMMARY | ~2019-08-08 | XMS | Encounter Summary ---
Demographics + + + | Address | [address] | | | [place] [address] | + + + | Home Phone [...] + | Jessica Shepard | ECON | [address] | | | | | [place] | | | | | [address] | | + + + + + | Bel Solis | ECON | Unknown | | + + + + + Care Team Providers + +------+ + | Care Toe Pounder Name | Role | Phone | + [...] + + | 05/16/ | Documentati | [facility] | Dylan Gaston, | Results (LABS (CMP, | | 2019 | on | INFECTIOUS DISEASE | Hero Malave MD | VANCO TROUGH, CRP, | | | | [address] | [address] | CBC, ESR | | | | [place] | [place] [address] | 05/14/2019)) | | | | [address] | [phone] | | | | | [phone] | | | +--------+ + + + [...] of this encounter Progress Notes Charlotte Castellon, Cable Puller - 05/16/2019 11:48 AM PSTLab Type: CMP, VANCO TR OUGH, CRP, CBC, ESR Lab Collection date: 05/14/2019 Received from:[facility] Abstracted into [employer]:YES Sent to scan:YES Author:CHARLOTTE PALENCIA CMA P [...]
--- OUTSIDE RECORDS SUMMARY | ~2019-08-08 | XMS | Encounter Summary ---
Demographics + + + | Address | [address] | | | [place] [address] | + + + | Home Phone [...] + | Jessica Shepard | ECON | [address] | | | | | [place] | | | | | [address] | | + + + + + | Bel Solis | ECON | Unknown | | + + + + + Care Team Providers + +------+ + | Care Financial Foundations Representative Name | Role | Phone | + +------+ + | Dian Lr NP | PCP | | + +------+ + Encounter Details +--------+ + + + + | Date | Type | Department | Care Team | Description | +--------+ + + + + | 07/21/ | Orders Only | [facility] | Conversion | | | 2019 | | INFECTIOUS DISEASE | Transaction, | | | | | [address] | Provider Unknown | | | | | [place], [place] | | | | | | [address] | (Fax) | | | | | [phone] | | | +--------+ + + + [...]
--- OUTSIDE RECORDS SUMMARY | ~2019-08-08 | XMS | Encounter Summary ---
Demographics + + + | Address | [address] | | | [place] [address] | + + + | Home Phone [...] + | Jessica Amezquita | ECON | [address] | | | | | [place] | | | | | [address] | | + + + + + | Bel Solis | ECON | Unknown | | + + + + + Care Team Providers + +------+ + | Care Tree And Shrub Worker Name | Role | Phone | + +------+ + | Dian Lr NP | PCP | | + +------+ + Encounter Details +--------+ + + + + | Date | Type | Department | Care Team | Description | +--------+ + + + + | 04/05/ | Hospital | [facility] | Cezar Da Silvaee | | | 2014 - | Encounter | MED CTR EMERGENCY | MD Sunshine [address] | | | | | [place] [address] | [facility], | | | 04/06/ | | [place] | [place] [address] | | | 2013 | | [address] | [phone] | | | | | [phone] | | | +--------+ + + + [...] At | + + + | [facility] | [place] | | Department [address] [facility] | [facility] | | [ rep ct [address]] [ rep ct [facility] | | [facility]] Signed | - IMAGING | | | | | Patient Name: REAGAN AMEZQUITA Physician: | | | ALICJAR. : 1945 Age: 68 Sex: M Unit #: [id number] | | | Exam Date: 04/05/13 Location: ER | | | Report #: [id number] Page: | | | %(RAD)RES..mtdd.print.filter("pg") of %(RAD) | | | RES..mtdd.print.filter("tpg") | | | | | | Accession Number: [id number] | | | ULTRASOUND OF THE ABDOMEN [...] Transcribed Date/Time: 04/06/2013 08:35 | | | Skein Winding Operator: <<Signature on File>> | | | | | | Rico Santiago MD04/06/13 1619 <Electronically signed by Rico Santiago | | | MD> Rico Santiago MD 04/06/13 0827 Skein Winding Operator: | | | Rippld Gqvvnorqnhnbx76/17/14 0835 Christina Da Silva, | | | | | + + + + + + + + | Performing | Address | City/State/Zipcode | Phone Number | | Organization | | | | + + + + + | [facility] | [address] | [place] | [phone] | | [facility] | | [address] | | | - IMAGING | | | | + + + + + CT Abdomen Pelvis w Contrast (04/06/2013 7:25 AM PST) + + | Specimen | + + | | + + + + + | Narrative | Performed At | + + + | [facility] | [place] | | Department [address], [place] | [facility] | | [ rep ct [address]] [ rep ct [facility] | | st zip] Signed | - IMAGING | | | | | Patient Name: REAGAN AMEZQUITA Physician: | | | ALICJAR. : 1945 Age: 68 Sex: M Unit #: [id number] | | | Exam Date: 04/05/13 Location: ER | | | Report #: [id number] Page: | | | %(RAD)RES..mtdd.print.filter("pg") of %(RAD) | | | RES..mtdd.print.filter("tpg") | | | | | | Accession Number: [id number] | | | ENHANCED CT ABDOMEN AND [...] | fluid is evident. There are stable givtkvczcz-ru-rpsgtq enlarged | | | kierra caval lymph [...] STABLE SPLENOMEGALY. | | | 4. STABLE EWXPGSIJUE-HO-ERCXXS ENLARGED KIERRA CAVAL LYMPH | | | [...] ER | | | staff by the [facility] radiologist on 04/05/2013 at 2147 hours. | | | Dictated Date/Time: 04/06/2013 07:25 Transcribed | | | Date/Time: 04/06/2013 07:40 Skein Winding Operator: | | | <<Signature on File>> | | | Tez Jacobo | | | MD Yossi04/06/13 1051 <Electronically signed by Tez Sy MD> | | | Tez Sy MD 04/06/13 0725 Skein Winding Operator: | | | Rippld Gqmturlouxuun59/17/14 0740 Christina Da Silva, | | | | | + + + + + + + + | Performing | Address | City/State/Zipcode | Phone Number | | Organization | | | | + + + + + | [facility] | [address] | [place] | [phone] | | [facility] | | [address] | | | - IMAGING | | [...] - 1.030 | [facility] | | | [facility], | | | [facility] | | [...] [address] | [place] | [phone] | | [facility] | | [address] | | | - LABORATORY | | | | + + + + + | [facility] | [address] | [place] | | | [facility] | | [address] | | | - LABORATORY | [...] + | [facility] | [address] | [place] | [phone] | | [facility] | | [address] | | | - LABORATORY | | | | + + + + + | [facility] | [address] | [place], [place] | | | [facility] | | [address], [facility] | | | - LABORATORY | [...] | | | | | | [facility] | | [...] + | [facility] | [address] | [place], [place] | [phone] | | [facility] | | [facility] | | | - LABORATORY | | | | + + + + + | [facility] | [address] | [place], [place] | | | [facility] | | [address] [place] [address] | | | - LABORATORY | | [...] [address] | [place] | [phone] | | [facility] | | [address] | | | - LABORATORY | | | | + + + + + | [facility] | [address] | [place] | | | [facility] | | [address], [facility] | | | - LABORATORY | [...] | | | | | REPORT TO [facility] | | | | | | 04/05/13 @ 1919 by | | | | | | SHANE | | | | | | Comment: PHONED REPORT TO [facility] 04/05/13 @ 1919 by SHANE [...] [address] | [place] | [phone] | | [facility] | | [address] | | | - LABORATORY | | | | + + + + + | [facility] | [address] | [place] | | | [facility] | | [address] | | | - LABORATORY | | | | + + + + + documented in this encounter Visit Diagnoses Not on filedocumented in this encounter
--- OUTSIDE RECORDS SUMMARY | ~2019-08-08 | XMS | Encounter Summary ---
Demographics + + + | Address | [address] | | | [place] [address] | + + + | Home Phone [...] + | Jessica Shepard | ECON | [address] | | | | | [place] | | | | | [address] | | + + + + + | Bel Solis | ECON | Unknown | | + + + + + Care Team Providers + +------+ + | Care Exterminator Helper Name | Role | Phone | + +------+ + | Dian Lr NP | PCP | | + +------+ + Encounter Details +--------+ + + + + | Date | Type | Department | Care Team | Description | +--------+ + + + + | 07/31/ | Orders Only | [facility] | Conversion | | | 2019 | | INFECTIOUS DISEASE | Transaction, | | | | | [address] | Provider Unknown | | | | | [place], [place] | | | | | | [address] | (Fax) | | | | | [phone] | | | +--------+ + + + [...]
--- OUTSIDE RECORDS SUMMARY | ~2019-08-08 | XMS | Encounter Summary ---
Demographics + + + | Address | [address] | | | [place] [address] | + + + | Home Phone [...] + | Jessica Shepard | ECON | [address] | | | | | [place] | | | | | [address] | | + + + + + | Bel Solis | ECON | Unknown | | + + + + + Care Team Providers + +------+ + | Care Lap Maker Name | Role | Phone | [...] + + | 05/11/ | Telephone | [facility] | Ely Mcguire | Other (care | | 2020 | | INFECTIOUS DISEASE | [place]LL[place] Zurita | coordination- | | | | [address] | | vancomycin trough ) | | | | [place] | | | | | | [address] | | | | | | [phone] | | | +--------+ + + + [...]
--- OUTSIDE RECORDS SUMMARY | ~2019-08-08 | XMS | Encounter Summary ---
Demographics + + + | Address | [address] | | | [place] [address] | + + + | Home Phone [...] + | Jesisca Shepard | ECON | [address] | | | | | [place] | | | | | [address] | | + + + + + | Bel Solis | ECON | Unknown | | + + + + + Care Team Providers + +------+ + | Care Sales And Catering Coordinator Name | Role | Phone | + +------+ + | Dian rL NP | PCP | | + +------+ + Encounter Details +--------+ + + + + | Date | Type | Department | Care Team | Description | +--------+ + + + + | 10/16/ | Orders Only | [facility] | Provider, | Other acute | | 2019 | | SYSTEM GENERIC OP | [address] | osteomyelitis, right | | | | CONVERSION [address] | [address] | ankle and foot | | | | [address] [place], [place] | [place] [address] | ([facility]) | | | | [address] | | | | | | [phone] | | | +--------+ + + + [...]
--- OUTSIDE RECORDS SUMMARY | ~2019-08-08 | XMS | Encounter Summary ---
Demographics + + + | Address | [address] | | | [place] [address] | + + + | Home Phone [...] + | Jessica Shepard | ECON | [address] | | | | | [place] | | | | | [address] | | + + + + + | Bel Solis | ECON | Unknown | | + + + + + Care Team Providers + +------+ + | Care Top Steep Tender Name | Role | Phone | + +------+ + | Dian Lr NP | PCP | | + +------+ + Encounter Details +--------+ + + + + | Date | Type | Department | Care Team | Description | +--------+ + + + + | 05/14/ | Hospital | [facility] | Conversion | Pain | | 2017 | Encounter | CONVERSION [address] | Transaction, | | | | [address] | Provider Unknown | | | | | [place] | [phone] | | | | | [address] | | | | | | [phone] | | | +--------+ + + + [...] Procedure Note | + + | Eliel Onrelas - 11/02/2018 6:55 AM PDT This is a non-reportable procedure | | without a radiologist report and isused for image storage only | + + documented in this encounter Visit Diagnoses + + | Diagnosis | + + | Pain Generalized pain | + + documented in this encounter"
--- OUTSIDE RECORDS SUMMARY | ~2019-08-08 | XMS | Encounter Summary ---
Demographics + + + | Address | [address] | | | [place] [address] | + + + | Home Phone [...] + | Jessica Shepard | ECON | [address] | | | | | [place] | | | | | [address] | | + + + + + | Bel Solis | ECON | Unknown | | + + + + + Care Team Providers + +------+ + | Care Gas Turbine Assembler Name | Role | Phone | + +------+ + PCP | Unavailable | + +------+ + Encounter Details +--------+ + + + + | Date | Type | Department | Care Team | Description | +--------+ + + + + | 04/16/ | Hospital | [facility] | Dian Lr NP | | | 2011 | Encounter | MED CTR XRAY [address] | [address] | | | | | [address] | [place] [address] | | | | | [place] [address] | [phone] | | | | | [phone] | | | +--------+ + + + [...] At | + + + | [facility] Diagnostic Imaging Department | [facility] | | [address] [facility] | [facility] | | BONE DENSITY TESTING: | [...] Transcribed Date/Time: | | | 04/16/2011 14:14 Enrollment Counselor: <Electronically Signed | | | by David Guillermo MD> 04/16/11 1459 | | + + + + + | Procedure Note | + + | Johnson, Rad Conversion - 04/27/2013 4:[address] [facility] | | Diagnostic Imaging Department [address] [place] [address] | | BONE DENSITY TESTIN04/16/2011 CLINICAL HISTORY: [...] 13:48 | |Transcribed Date/Time: 04/16/2011 14:14 | |Enrollment Counselor: | |<Electronically Signed by David Guillermo MD> [...]
--- OUTSIDE RECORDS SUMMARY | ~2019-08-08 | XMS | Encounter Summary ---
Demographics + + + | Address | [address] | | | [place] [address] | + + + | Home Phone [...] + | Jessica Shepard | ECON | [address] | | | | | [place] | | | | | [address] | | + + + + + | Bel Solis | ECON | Unknown | | + + + + + Care Team Providers + +------+ + | Care Lead Etl Developer Name | Role | Phone | [...] + + | 05/02/ | Telephone | [facility] | Ely Mcguire | Other (care | | 2020 | | INFECTIOUS DISEASE | Parminder RN | coordination) | | | | [address] | | | | | | [place], [place] | | | | | | [address] | | | | | | [phone] | | | +--------+ + + + [...]
--- OUTSIDE RECORDS SUMMARY | ~2019-08-08 | XMS | Encounter Summary ---
Demographics + + + | Address | [address] | | | [place] [address] | + + + | Home Phone [...] + | Jessica Shepard | ECON | [address] | | | | | [place] | | | | | [address] | | + + + + + | Bel Solis | ECON | Unknown | | + + + + + Care Team Providers + +------+ + | Care Male Infertility Specialist Name | Role | Phone | [...] + + | 04/23/ | Telephone | [facility] | Dianna Hernandez, | Follow-up | | 2019 | | VASCULAR SURGERY | [address] | | | | | [address] | | | | | | [place] | | | | | | [address] | | | | | | [phone] | | | +--------+ + + + [...]
--- OUTSIDE RECORDS SUMMARY | ~2019-08-08 | XMS | Encounter Summary ---
Demographics + + + | Address | [address] | | | [place] [address] | + + + | Home Phone [...] + | Jessica Shepard | ECON | [address] | | | | | [place] | | | | | [address] | | + + + + + | Bel Solis | ECON | Unknown | | + + + + + Care Team Providers + +------+ + | Care Commission Sales Associate Name | Role | Phone | [...] + + | 05/23/ | Telephone | [facility] | Nimo Westbrook, | Care Coordination | | 2020 | | INFECTIOUS DISEASE | Cantilever Crane Operator | (EOT??); Other (pic | | | | [address] | | d/c) | | | | [place] | | | | | | [address] | | | | | | [phone] | | | +--------+ + + + [...]
[~2019-08-08 14:54] MED LIST changes: +ASPIRIN81 MG PO; -DOCUSATE CALCI240 MG PO; +DOCUSATE SODIU100 MG PO; +ONDANSETRON ODT4 MG PO; +PAIN RELIEF325 MG PO; -PAIN RELIEF650 MG PO; -ZOFRAN4 MG PO
--- OUTSIDE RECORDS SUMMARY | 2019-08-08 14:58 | XMS ---
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 Care History Medical/Surgical 03/27/2019 [facility] - PATIENT HAS PCP-DR ROSLYN JONES AT THE [facility] HIS PCP- - LAST VISIT WITH DR JONES WAS ON 02/05/19 AND PT WAS SCHEDULED FOR PATIENT- PATIENT WAS SUPPOSED TO BE SEEN ON 03/22/2019 FOR PT - PROVIDER DOES NOT HAVE RECORDS. - PATIENT RECENTLY HAD A GEC DONE BY THE [place] PROVIDER IN OCTOBER 2018. - [facility] WILL HAVE ALL RECENT ED RECORDS SENT TO PCP AT THE [facility]-PATIENT DOES NOT HAVE DR [facility] PCP. Jovany VISIT COUNT (12 MO.) 8 [facility] TOTAL 8 NOTE: Visits indicate total known visits. ED/UCC VISIT TRACKING (12 MO.) 08/08/2019 14:55 [facility] [place] TYPE: Emergency COMPLAINT: - ALTERED MENTAL STATUS 05/18/2019 15:02 [facility] [place] TYPE: Emergency COMPLAINT: - ARM SWELLING DIAGNOSES: - Presence of cardiac and vascular implant and graft, unspecifi - long-term (current) use of insulin - Personal history of nicotine dependence - Post-traumatic stress disorder, unspecified - Other long term acute care registered nurse (current) drug therapy - Other specified soft tissue disorders - Pain in right upper arm - Type 2 diabetes mellitus with diabetic polyneuropathy - watermelon inspector (current) use of aspirin 04/24/2019 13:13 [facility] [place] TYPE: Emergency COMPLAINT: - CHOKING EPISODE DIAGNOSES: - Shortness of breath - Personal history of nicotine dependence - Other specified symptoms and signs involving the circulatory - Type 2 diabetes mellitus with diabetic neuropathy, unspecifie - Other specified symptoms and signs involving the circulatory 04/05/2019 15:20 [facility] [place] TYPE: Emergency COMPLAINT: - SOB DIAGNOSES: - Other specified abnormal findings of blood chemistry - watermelon inspector (current) use of aspirin - Personal history of transient ischemic attack (TIA), and cere - Other long-term (current) drug therapy - Personal history of nicotine dependence - watermelon inspector (current) use of insulin - Dyspnea, unspecified - Acute on chronic systolic (congestive) heart failure - Type 2 diabetes mellitus with diabetic polyneuropathy 03/28/2019 09:43 [facility] [place] TYPE: Emergency COMPLAINT: - ALTERED LOC 03/22/2019 18:35 [facility] [place] TYPE: Emergency COMPLAINT: - SOB DIAGNOSES: - Shortness of breath - Heart failure, unspecified - Other long-term (current) drug therapy - Type 2 diabetes mellitus with diabetic polyneuropathy - Personal history of nicotine dependence 03/16/2019 17:57 [facility] [place] TYPE: Emergency COMPLAINT: - DRESSING CHANGE DIAGNOSES: - Type 2 diabetes mellitus with diabetic polyneuropathy - Acquired absence of left foot - Other long-term (current) drug therapy - Non-pressure chronic ulcer of other part of left foot with un - Type 2 diabetes mellitus with foot ulcer - long-term (current) use of insulin - Personal history of nicotine dependence - Non-pressure chronic ulcer of other part of right foot with u - Encounter for change or removal of surgical wound dressing - long-term (current) use of aspirin 01/06/2019 00:10 [facility] TYPE: Emergency COMPLAINT: - POST OP PROBLEM DIAGNOSES: - watermelon inspector (current) use of aspirin - Personal history of nicotine dependence - Type 2 diabetes mellitus with diabetic neuropathy, unspecifie - Other long-term (current) drug therapy - Encounter for change or removal of surgical wound dressing - watermelon inspector (current) use of insulin INPATIENT VISIT TRACKING (12 MO.) 04/06/2019 01:[facility] TYPE: Vascular Surgery DIAGNOSES: - Other osteomyelitis, ankle and foot - Other chronic osteomyelitis, unspecified site - Bacterial infection, unspecified - long-term (current) use of insulin - Essential (primary) hypertension - NSTEMI - Peripheral vascular disease, unspecified - Chest pain, unspecified - Hemiplegia, unspecified affecting left nondominant side - Osteomyelitis, unspecified - Other acute osteomyelitis, right ankle and foot - Gangrene, not elsewhere classified - Methicillin resistant Staphylococcus aureus infection, unspec - Type 2 diabetes mellitus without complications 03/28/2019 15:00 [facility] [place] TYPE: Medical Surgical COMPLAINT: - ACUTE RESP FAILURE/ACUTE CHF SYSTOLIC DIAGNOSES: - Sepsis due to streptococcus, group B - Acute respiratory failure with hypoxia - Iron deficiency anemia, unspecified - Hypertensive heart disease with heart failure - Nephropathy induced by other drugs, medicaments and biologica - Acute on chronic systolic (congestive) heart failure - Non-pressure chronic ulcer of other part of right lower leg w - Personal history of nicotine dependence - Gastro-esophageal reflux disease without esophagitis - Type 2 diabetes mellitus with diabetic polyneuropathy - Personal history of traumatic brain injury - long-term (current) use of insulin - Low back pain - Adverse effect of diagnostic agents, initial encounter - Low back pain - long-term (current) use of aspirin - Acute respiratory failure with hypoxia - Sepsis due to streptococcus, group B - Bed confinement status - Unspecified place in hospital as the place of occurrence of t - Personal history of traumatic brain injury - Hypertensive heart disease with heart failure - long-term (current) use of aspirin - Non-pressure chronic ulcer of other part of right lower leg w - Type 2 diabetes mellitus with diabetic peripheral angiopathy - Unspecified place in hospital as the place of occurrence of t - Gastro-esophageal reflux disease without esophagitis - Acute on chronic systolic (congestive) heart failure - 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 - Hypo-osmolality and hyponatremia - Other chronic pain - Acute kidney failure, unspecified - Severe sepsis with septic shock - Type 2 diabetes mellitus with foot ulcer - Nephropathy induced by other drugs, medicaments and biologica - 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 - Other long-term (current) drug therapy - Bed confinement status - Adverse effect of diagnostic agents, initial encounter - Non-pressure chronic ulcer of left heel and midfoot with necr - Type 2 diabetes mellitus with foot ulcer - Myocardial infarction type 2 - 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 - Hypo-osmolality and hyponatremia - Iron deficiency anemia, unspecified - Shortness of breath - 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
[2019-08-09] MEDS ORDERED: HUMALOG100 UNITS/ SUB-Q ×2 (11:25→11:27)
[2019-08-09] MEDS ORDERED: LANTUS100 UNITS/ SUB-Q (11:28)
[2019-08-09] MEDS ORDERED: GLUCAGON EMERGEN1 M1 IM (11:30)
[2019-08-09] MEDS ORDERED: AVODART0.5 MG PO (11:33)
[2019-08-09] MEDS ORDERED: MIRTAZAPINE7.5 MG PO (11:34)
[2019-08-09] MEDS ORDERED: MULTI VITAMIN1 EACH PO (12:08)
[2019-08-09] MEDS ORDERED: PROTONIX40 MG PO (12:09)
[2019-08-09] MEDS ORDERED: FLORASTOR250 MG PO (12:10)
[2019-08-09] MEDS ORDERED: ONGLYZA5 MG PO (12:11)
[2019-08-09] MEDS ORDERED: METAMUCIL660 GM PO (12:14)
[2019-08-09] MEDS ORDERED: ARTIFICIAL TEAR15 M3 OU (12:17)
[2019-08-09] MEDS ORDERED: DULCOLAX10 MG PR (12:19)
[2019-08-09] MEDS ORDERED: FLEET ENEMA133 ML PR (12:21)
[2019-08-09] MEDS ORDERED: SENNA8.6 MG PO (12:22)
[2019-08-09] MEDS ORDERED: LOPERAMIDE2 M1 PO (12:23)
[2019-08-09] MEDS ORDERED: MILK OF MA400 MG/5 M PO (12:24)
[2019-08-09] MEDS ORDERED: OXYCODONE HCL5 MG PO (12:27)
[2019-08-09] MEDS ORDERED: VOLTAREN100 GM TOP (13:47)
[2019-08-10] MEDS ORDERED: AMOX TR-K CLV1 EAC1 PO (07:48)
[2019-08-10] MEDS ORDERED: TRAZODONE HCL50 MG PO (07:58)
[2019-08-10] MEDS ORDERED: TORSEMIDE10 MG PO (08:08)
[2019-08-10] MEDS ORDERED: LANTUS100 UNITS/ SUB-Q (08:20)
== END 2019-08-10 13:15 | disposition home or self-care (01) ==
LOC: ED 14:54 → CCU 14:56 → ED 18:09 → CCU 18:09 → MS 08-09 18:18
PROVIDERS: ADMIT Internal Medicine
DX: R50.9 Fever, unspecified (principal); R09.02 Hypoxemia; I95.9 Hypotension, unspecified; R41.82 Altered mental status, unspecified; I50.22 Chronic systolic (congestive) heart failure; M54.9 Dorsalgia, unspecified; G89.29 Other chronic pain; E11.42 Type 2 diabetes mellitus with diabetic polyneuropathy; R11.10 Vomiting, unspecified; Z86.73 Personal history of transient ischemic attack (TIA), 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 deficits; Z87.820 Personal history of traumatic brain injury; Z87.891 Personal history of nicotine dependence; Z20.828 Contact with and (suspected) exposure to other viral communicable diseases
CPT/HCPCS: 36415; 36600; 51702; 71045; 80048; 80053; 81001; 82803; 83605; 85025; 87040; 87088; 94640; 96372; 96376; 99285-25; G0378; J1650; J1815; J2405; J2543; J7030; J7042; U0002

== ENCOUNTER 2019-08-23 08:28 | Emergency (ER) | payer MEDICARE ==
[~2019-08-23] VITALS: Ht 177.8 cm; Wt 92.8 kg
--- OUTSIDE RECORDS SUMMARY | ~2019-08-23 | XMS | Encounter Summary ---
Demographics + + + | Address | [address] | | | [place] [address] | + + + | Home Phone | | + + + | Preferred Language | Unknown | + + + | Marital Status | | + + + | Judaism Affiliation | 1076 | + + + | Race | Unknown | + + + | Ethnic Group | Unknown | + + + Author + + + | Author | [facility] | | | and [place] | + + + | Organization | [facility] | | | and [place] | + + + | Address | Unknown | + + + | Phone | Unavailable | + + + Support + + + + + | Name | Relationship | Address | Phone | + + + + + | Jessica Shepard | ECON | [address] | | | | | [place] | | | | | [address] | | + + + + + | Bel Solis | ECON | Unknown | | + + + + + Care Team Providers + +------+ + | Care Band Instrument Repairer Name | Role | Phone | + +------+ + | Jamar Manuel MD | PCP | | + +------+ + Reason for Visit +--------+ + | Reason | Comments | +--------+ + | Other | care coordination- vancomycin trough | +--------+ + Encounter Details +--------+ + + + + | Date | Type | Department | Care Team | Description | +--------+ + + + + | 05/11/ | Telephone | [facility] | Ely Mcguire | Other (care | | 2020 | | INFECTIOUS DISEASE | [place] | coordination- | | | | [address] | | vancomycin trough ) | | | | [place] | | | | | | [address] | | | | | | [phone] | | | +--------+ + + + + Social History + +-------+ +--------+------+ | Tobacco Use | Types | Packs/Day | Years | Date | | | | | Used | | + +-------+ +--------+------+ | Former Smoker | | | | | + +-------+ +--------+------+ + +---+---+---+ | Smokeless Tobacco: | | | | | Never Used | | | | + +---+---+---+ + + +---------+ + | Alcohol Use | Drinks/Week | oz/Week | Comments | + + +---------+ + | No | | | | + + +---------+ + + + + | Sex Assigned at | Date Recorded | | | | + + + | Not on file | | + + + + + + + | Job Start Date | Occupation | Industry | + + + + | Not on file | Not on file | Not on file | + + + + + + + + | Travel History | Travel Start | Travel End | + + + + + + | No recent travel history available. | + + documented as of this encounter Functional Status + + + + | Functional Status | Response | Date of Assessment | + + + + | Are you deaf or do you have serious | No | 11/25/2017 | | difficulty hearing? | | | + + + + | Are you blind or do you have serious | No | 11/25/2017 | | difficulty seeing, even when wearing | | | | glasses? | | | + + + + | Do you have serious difficulty walking or | Yes | 11/25/2017 | | climbing stairs? (5 years old or older) | | | + + + + | Do you have difficulty dressing or bathing? | Yes | 11/25/2017 | | (5 years old or older) | | | + + + + | Because of a physical, mental, or emotional | No | 11/25/2017 | | condition, do you have difficulty doing | | | | errands alone such as visiting a doctor's | | | | office or shopping? [15 years old or | | | | older)] | | | + + + + + + + + | Cognitive Status | Response | Date of Assessment | + + + + | Because of a physical, mental, or emotional | No | 11/25/2017 | | condition, do you have serious difficulty | | | | concentrating, remembering, or making | | | | decisions? (5 years old or older) | | | + + + + documented as of this encounter Plan of Treatment Not on filedocumented as of this encounter Visit Diagnoses Not on filedocumented in this encounter Additional Health Concerns + + + + | Infection | Noted Time | Resolved Time | + + + + | Methicillin-resistant Staphylococcus aureus | 04/11/2019 2:01 PM | | | | PST | | + + + + documented as of this encounter"
--- OUTSIDE RECORDS SUMMARY | ~2019-08-23 | XMS | Encounter Summary ---
Demographics + + + | Address | [address] | | | [place] [address] | + + + | Home Phone | | + + + | Preferred Language | Unknown | + + + | Marital Status | | + + + | Muslim Affiliation | 1076 | + + + | Race | Unknown | + + + | Ethnic Group | Unknown | + + + Author + + + | Author | [facility] | | | and [place] | + + + | Organization | [facility] | | | and [place] | + + + | Address | Unknown | + + + | Phone | Unavailable | + + + Support + + + + + | Name | Relationship | Address | Phone | + + + + + | Jessica Shepard | ECON | [address] | | | | | [place] | | | | | [address] | | + + + + + | Bel Solis | ECON | Unknown | | + + + + + Care Team Providers + +------+ + | Care Documentation Lead Name | Role | Phone | + +------+ + | Jamar Manuel MD | PCP | | + +------+ + Reason for Visit +---------+ + | Reason | Comments | +---------+ + | Consult | | +---------+ + Encounter Details +--------+ + + + + | Date | Type | Department | Care Team | Description | +--------+ + + + + | 06/24/ | Telephone | [facility] | Mika Tim DNP | Consult | | 2019 | | VASCULAR SURGERY | [address] | | | | | [address] [place] | [place], [place] | | | | | [place], [place] | [address] | | | | | [address] | | | | | | [phone] | | | +--------+ + + + [...]
--- OUTSIDE RECORDS SUMMARY | ~2019-08-23 | XMS | Encounter Summary ---
Demographics + + + | Address | [address] | | | [place] [address] | + + + | Home Phone | | + + + | Preferred Language | Unknown | + + + | Marital Status | | + + + | Mandaeism Affiliation | 1076 | + + + | Race | Unknown | + + + | Ethnic Group | Unknown | + + + Author + + + | Author | [facility] | | | and [place] | + + + | Organization | [facility] | | | and [place] | + + + | Address | Unknown | + + + | Phone | Unavailable | + + + Support + + + + + | Name | Relationship | Address | Phone | + + + + + | Jessica Shepard | ECON | [address] | | | | | [place] | | | | | [address] | | + + + + + | Bel Solis | ECON | Unknown | | + + + + + Care Team Providers + +------+ + | Care Server Assistant Name | Role | Phone | + +------+ + | Jamar Manuel MD | PCP | | + +------+ + Reason for Visit + + + | Reason | Comments | + + + | Follow-up | | + + + Encounter Details +--------+ + + + + | Date | Type | Department | Care Team | Description | +--------+ + + + + | 06/25/ | Telephone | [facility] | Karyn Guerra, | Follow-up | | 2019 | | VASCULAR SURGERY | RN | | | | | [address] | | | | | | [facility] | | | | | | [address] | | | | | | [phone] | | | +--------+ + + + [...]
--- OUTSIDE RECORDS SUMMARY | ~2019-08-23 | XMS | Encounter Summary ---
Demographics + + + | Address | [address] | | | [place] [address] | + + + | Home Phone | | + + + | Preferred Language | Unknown | + + + | Marital Status | | + + + | Rastafari Affiliation | 1076 | + + + | Race | Unknown | + + + | Ethnic Group | Unknown | + + + Author + + + | Author | [facility] | | | and [place] | + + + | Organization | [facility] | | | and [place] | + + + | Address | Unknown | + + + | Phone | Unavailable | + + + Support + + + + + | Name | Relationship | Address | Phone | + + + + + | Jessica Shepard | ECON | [address] | | | | | [place] | | | | | [address] | | + + + + + | Bel Solis | ECON | Unknown | | + + + + + Care Team Providers + +------+ + | Care Edge Runner Name | Role | Phone | + +------+ + | Jamar Manuel MD | PCP | | + +------+ + Reason for Visit +--------+ + | Reason | Comments | +--------+ + | Other | *Labs from [facility] 05/11/2019 (CREATININE WITH GFR) | +--------+ + Encounter Details +--------+ + + + + | Date | Type | Department | Care Team | Description | +--------+ + + + + | 05/14/ | Documentati | [facility] | Nimo Westbrook, | Other (*Labs from | 2019 | on | INFECTIOUS DISEASE | [facility] | [facility] | | | | [address] | | 05/11/2019 | | | | [facility] | | (CREATININE WITH | | | | [address] | | GFR)) | | | | [phone] | | | +--------+ + + + [...] + documented as of this encounter Progress Nimo Harley, [employer]ter - 05/14/2019 2:47 PM PST*Labs from [facility] (CREATININE WITH GFR) RECEIVED: 05/14/2019 Labs were abstracted into [facility] and sent to scan. Kaye CMA Tdocumented in this encounter Plan of Treatment Not on filedocumented as of this encounter Procedures + +--------+ + + + | Procedure Name | Priori | Date/Time | Associated Diagnosis | Comments | | | ty | | | | + +--------+ + + + | CREATININE | Routin | 05/11/2019 | | Results for this | | | e | 3:51 PM | | procedure are in the | | | | PST | | results section. | + +--------+ + + + documented in this encounter Results Creatinine (05/11/2019 3:51 PM PST) + +-------+ + + + | Component | Value | Ref Range | Performed | Pathologist | | | | | At | Signature | + +-------+ + + + | Creatinine | 1.10 | 0.70 - 1.18 | REFERENCE | | | | | | LAB | | | | | | [facility] | | | | | | [facility] | | + +-------+ + + + | GFR | 66 | | REFERENCE | | | ESTIMATE | | | LAB | | | (REF) | | | [facility] | | | | | | [facility] | | + +-------+ + + + + + | Specimen | + + | Blood | + + + + + + + | Performing | Address | City/State/Zipcode | Phone Number | | Organization | | | | + + + + + | REFERENCE LAB | [address] | [place], [place] | [phone] | | [facility] | | [id number] | | + + + + + [...]
--- OUTSIDE RECORDS SUMMARY | ~2019-08-23 | XMS | Encounter Summary ---
Demographics + + + | Address | [address] | | | [place] [address] | + + + | Home Phone | | + + + | Preferred Language | Unknown | + + + | Marital Status | | + + + | Church Affiliation | 1076 | + + + | Race | Unknown | + + + | Ethnic Group | Unknown | + + + Author + + + | Author | [facility] | | | and [place] | + + + | Organization | [facility] | | | and [place] | + + + | Address | Unknown | + + + | Phone | Unavailable | + + + Support + + + + + | Name | Relationship | Address | Phone | + + + + + | Jessica Shepard | ECON | [address] | | | | | [place] | | | | | [address] | | + + + + + | Bel Solis | ECON | Unknown | | + + + + + Care Team Providers + +------+ + | Care Gynecologist Name | Role | Phone | + [...] + + | 05/18/ | Telephone | [facility] | Libra Weaver RN | CHF Management (CHF | | 2020 | | [address] | | quality measures) | | | | [place] | | | | | | [address] | | | | | | [phone] | | | +--------+ + + + [...]
--- OUTSIDE RECORDS SUMMARY | ~2019-08-23 | XMS | Encounter Summary ---
Demographics + + + | Address | [address] | | | [place] [address] | + + + | Home Phone | | + + + | Preferred Language | Unknown | + + + | Marital Status | | + + + | Faith Affiliation | 1076 | + + + | Race | Unknown | + + + | Ethnic Group | Unknown | + + + Author + + + | Author | [facility] | | | and [place] | + + + | Organization | [facility] | | | and [place] | + + + | Address | Unknown | + + + | Phone | Unavailable | + + + Support + + + + + | Name | Relationship | Address | Phone | + + + + + | Jessica Amezquita | ECON | [address] | | | | | [place] | | | | | [address] | | + + + + + | Bel Solis | ECON | Unknown | | + + + + + Care Team Providers + +------+ + | Care Sheep Sorter Name | Role | Phone | + +------+ + | Dian Lr NP | PCP | | + +------+ + Encounter Details +--------+ + + + + | Date | Type | Department | Care Team | Description | +--------+ + + + + | 05/14/ | Hospital | [facility] | Marlin Mckeon | Received intravenous | | 2017 - | Encounter | [facility] | [place] [address] | tissue plasminogen | | | | CARE FLOOR [address] [place], [place] | activator (tPA) in | | 05/19/ | | [facility] | [id number] | emergency | | 2017 | | [place], [place] | | department; Acute | | | | [address] | | left hemiparesis | | | | [phone] | | ([facility]); 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 | | | | | | with hyperglycemia, | | | | | | with long-term | | | | | | current use of | | | | | | insulin ([facility]); | | | | | | Ischemic stroke | | | | | | diagnosed during | | | | | | current admission | | | | | | ([facility]); 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, with | | | | | | long-term current | | | | | | use of insulin | | | | | | ([facility]); Moderate | | | | | | protein-calorie | | | | | | malnutrition ([facility]); | | | | | | Gastroesophageal [...] Date of Service: 05/19/16 105 Status: Signed Hospitality Manager: Jeff Corley DO (Physician) [facility] Service: Hospitalist Discharge Summary Date of Admission: 05/14/2016 Date of Discharge: 05/19/2016 Discharge Provider: Jeff Corley DO Treatment Team: Consulting Physician: Wing Nina Machado MD Consulting Physician: Angelica Bernardo MD Admitting [...] edema Skin - dry no erythema Disposition: penitentiary Condition: Stable Code Status: Full Code Discharge [...] liquids Activity as Tolerated Follow up: Saurabh Fritz DO [address] [address] Medication List START taking these medications atorvastatin [...] Date of Service: 05/19/16 1231 Status: Signed Hospitality Manager: Sandra Cedillo RN (Registered Nurse) Report given to ELLIOT M[facility]quez at [facility]. Pt aware of transfer plan. Facility van to pick pt up at 1300. onver elder Transaction, Provider Unknown - 05/19/2016 11:41 AM PST Case Management by Lisa Hogan RN at 05/19/16 1141 Author: Lisa Hogan RN Service: (none) Author Type: Registered Nurse Filed: 05/19/16 1142 Date of Service: 05/19/16 1141 Status: Signed Hospitality Manager: Lisa Hogan RN (Registered Nurse) 05/19/16 1128 Anticipated Disposition Facility Type care home facility Discharge Appointment Time 1300 Medicare Important Message (ROS) Given Detention Facility Other (comment) ([facility]) Disposition: [facility] Transportation: W/C van provided by facility All orders, signed AVS, and prescriptions have been faxed All DC paperwork completed Patient and family in agreement with discharge plan Medicare important message (Given or N/A): yes Tc to spouse Jessica who agrees with d/c plan to [facility]. Negar onver elder Transaction, Provider Unknown - 05/19/2016 11:40 AM PST Therapy Progress Note by Theresa Gonzales PT at 05/19/16 1140 Author: Theresa Gonzales PT Service: (none) Author Type: Physical Therapist Filed: 05/19/16 1140 Date of Service: 05/19/16 1140 Status: Signed Hospitality Manager: Theresa Gonzales PT (Physical Therapist) 05/19/16 1139 [...] Author: HARIS Lemon Service: (none) Author Type: Transit Bus Operator Filed: 05/19/16 1114 Date of Service: 05/19/16 1102 Status: Signed Hospitality Manager: HARIS Lemon (Transit Bus Operator) 05/19/16 1100 Discharge Planning Evaluation Admitting Diagnosis CVA, TPA given Anticipated Disposition Facility Type care home facility Detention Facility Other (comment) ([facility]) DONATIONS ATTENDANT p/c Cheryl Bashir [facility] Coordinator, states she received phone call from [facility] Evelia, asking for authorization. DONATIONS ATTENDANT assisted Pt and Pt (Jessica Devyn [phone]) regarding [facility] form, assisted with form and faxed to [facility] Coordinator - Cheryl Bashir [phone] ext. [phone]. During filli ng out [facility] form, Pt stated "We wanted [facility] over [facility], but we were told [facility] was denied by [place]." DONATIONS ATTENDANT provided choice of accepting facili ties. DONATIONS ATTENDANT p/c Carlos with [facility] states they will accept Pt, they are VA contracted, if Pt choice. DONATIONS ATTENDANT met with eNgar ZARATE regarding the discrepancy of information about Pt choice. DONATIONS ATTENDANT with Negar ZARATE met with Pt and Pt (Jessica Amezquita) regarding choice, after lengthy discussion, they went back and forth regarding facilities, Pt finally chose [facility]. DCP: [facility] NAOMY BOGGSSTANLEY, Transit Bus Operator [phone] cell onver elder Transaction, Provider Unknown - 05/19/2016 8:06 AM PST Case Management by Lisa Hogan RN at 05/19/16 0806 Author: Lisa Hogan RN Service: (none) Author Type: Registered Nurse Filed: 05/19/161111 Date of Service: 05/19/16805 Status: Addendum Hospitality Manager: Lisa Hogan RN (Registered Nurse) Related Notes: Original Note by Lisa Hogan RN (Registered Nurse) filed at 05/19/16 082 1 0800:Tc to Carlos at [facility]/[phone] re VA benefits and acceptance. Tc to Jessica, she states she rather have pt go to [facility] and not [facility]/. Went to meet with pt and he spoke to Jessica over the phone and agrees with going to [facility]. Tc to Jimmy at [facility], left [facility] re acceptance. 1030: per Jimmy, they can transport pt today at 1300 via w/c van. Jimmy states they are VA contracted and pt does not have to move to another VA facility after the 20 days of medicar e have . Pt can be transitioned to VA on the day if the GEC paperwork is submitt ed now to the VA. Notified pt and spouse Jessica as this was their concern. HARIS Nichols was given referral to assist in completing the GEC process. Faxed PT/MD notes to Ly/MYRNA GEc coordinator per her request. Notified primary RN and Dr Corley about d/cMariana Bills onver elder Transaction, Provider Unknown - 05/19/2016 5:25 AM PST Nurse Progress Note by Hero You RN at 05/19/16 7376 Author: Hero You RN Service: (none) Author Type: Registered Nurse Filed: 05/19/16 0525 Date of Service: 05/19/16524 Status: Signed Hospitality Manager: Hero You RN (Registered Nurse) No acute changes from previous end of shift report. Will continue monitoring. Hero You RN 05/19/2016 onver elder Transaction, Provider Unknown - 05/18/2016 6:32 PM PST Nurse Progress Note by Sandra Cedillo RN at 05/18/161831 Author: Sandra Cedillo RN Service: (none) Author Type: Registered Nurse Filed: 05/18/161833 Date of Service: 05/18/161831 Status: Signed Hospitality Manager: Sandra Cedillo RN (Registered Nurse) Pt had [...] Service: Hospitalist Author Type: Physician Filed: 05/18/16 1259 Date of Service: 05/18/16 1252 Status: Signed Hospitality Manager: Jeff Corley DO (Physician) PROGRESS NOTE 05/18/2016 for Reagan Amezquita on the hospitalist service. ASSESSMENT & PLAN [...] Problem: Ischemic stroke diagnosed during current admission ([facility]) Active Problems: Received intravenous tissue plasminogen activator [...] had an extended conversation with c ase manager of housekeeping about which SNF's/towns he liked and which [...] oz)] 85.7 kg (188 lb 15 oz) (05/18 347) Physical exam: NAD AOx3 HENT - MMM, [...] Notes by Jenn Richey RD at 05/18/16 5747 Author: Jenn Richey RD Service: (none) Author Type: Registered Dietitian Filed: 05/18/16 1155 Date of Service: 05/18/16 1150 Status: Signed Hospitality Manager: Jenn Richey RD (Registered Dietitian) 05/18/16 1052 Subjective Timepoint Follow up Pt c/o In [...] Physical Findings Digestive System (Mouth to Rectum) SHAKE CUTTER following for dysphagia Anthropometrics Weight change Wt [...] Date of Service: 05/18/16 1131 Status: Addendum Hospitality Manager: Lisa Hogan RN (Registered Nurse) Related Notes: Original Note by Lisa Hogan RN (Registered Nurse) filed at 05/18/16 154 2 1000: Tc melyssa Olmedo([phone] ext [phone]) with VA "Gec" program regardign snf placemen t. Per Ly, pt needs to go to a VA contracted snf if he wants the VA to provide for copay after his medicare coverage no longer pays 100%. Ly statesthese are some available VA c ontracted snfs: [facility], [facility], [facility], [facility]. [facility] are not contracted with them. Per Ly, if paperwork(PT/MD notes and GEC form ) is submitted now, they can admit pt to a VA contracted snf under VA benefits. Informed Salo wang will discuss with pt and spouse Jessica. Per email from Sheila with IPR, pt declined for IPR. 1130:Tc to J[facility], she states pt shift supervisor rn nurse's note, pt has been restless an d bail bond agent light continously and on IV fentanyl, she is not sure she has the man power to acc ept pt. 1200: Tc to spouse Jessica, , [facility] regarding snf placement. Met with pt regarding snf and VA benefits. Pt states he will discuss with spouse, but would consider going to [place]. Sent e-referrals. Pt states Jessica will be here this evening and would like to discuss with CM options. Informed pt [facility]) has accepted pt but they are not VA contracted. 1300: per rounding with pt, he wants referral sent to [facility] too. Referral sent. Referral sent to HARIS Nichols to assist with "GEC" paperwork for the VA 1500: Tc to Carlos with [facility]([phone]), he thinks pt can be accepted when medically roseann dy, but first have to review pt's VA benefits to make sure rehab is covered. Tc to Jessica again,([phone]) left [facility] about rehab placement. Attempted to call Shonda reilly at work,[phone], busy signal. 1530: per Jimmy at [facility], they can accept pt when he is medically ready and if he wants to go there. Notified pt onver elder Transaction, Provider Unknown - 05/18/2016 10:37 AM PST Progress Notes by Khadra Osman RD, DANNY at 05/18/16 1037 Author: Khadra Osman RD, CDE Service: (none) Author Type: Fixed Assets Accountant Filed: 05/18/16 1044 Date of Service: 05/18/16 1037 Status: Signed Hospitality Manager: Khadra Osman RD, CDE (Fixed Assets Accountant) Met with pt. Reports he's had diabetes for 6 years. He gets all medications through the [facility] for his diabetes. States his of 49 years also has insulin dependent diabetes. At [facility] he was prescribed: 50 units of [...] his blood sugar. Reports he's been through [employer] es education classes two times - but [...] the VA. Khadra Osman RD, MPH, CDE, Fixed Assets Accountant 05/18/2016 10:43 AM onver elder Transaction, Provider Unknown - 05/18/2016 4:36 AM PST Nurse Progress Note by Hero You RN at 05/18/16435 Author: Hero You RN Service: (none) Author Type: Registered Nurse Filed: 05/18/16436 Date of Service: 05/18/16435 Status: Signed Hospitality Manager: Hero You RN (Registered Nurse) Pts VSS, Pt c/o back pain, IV fentanyl given x1. Pt calling constantly during shift to be r epositioned. No other changes at this time. Will continue monitoring. Hero You RN 017 onver elder Transaction, Provider Unknown - 05/17/2016 5:00 PM PST Nurse Progress Note by Sandra Cedillo RN at 05/17/16 170 Author: Sandra Cedillo RN Service: (none) Author Type: Registered Nurse Filed: 05/17/161701 Date of Service: 05/17/161699 Status: Signed Hospitality Manager: Sandra Cedillo RN (Registered Nurse) Pt anxious [...] (none) Author Type: Physical Therapist Filed: 05/17/16 1619 Date of Service: 05/17/16 1500 Status: Signed Hospitality Manager: Cheryl Rodney PT (Physical Therapist) 05/17/16 1500 PT Last Visit PT Received On 05/17/16 Reason for Treatment Stroke Requires PT Follow Up Yes Follow up PT Only? Yes (complexity) Assistance Required 2 person Ergonomist Needed No Precautions UE Precaution(s) LUE Precautions/WB [...] lift for transfer back to bed - RN/MACHINE INSPECTOR aware of pt positioning/abilities and need for [...] Barriers to Discharge Cognitive Deficits Impacting Functional [place];Self-care Defici ts Impacting Functional [place];Physical Deficits Impacting Functional [place];Malik rological Impairment (see comment) Recommendation Comments Pt demonstrating good motivation to work in therapy- currently pt w ith L hemiparesis and currently requiring maxA x 1-2 for all transfers. Pt eager to particip ate in therapy and likely could tolerate intensity of therapy required for IPR. rowJeff srinivasan DO - 05/17/2016 12:38 PM PSTFormatting of this note might be different from the ramiro melyssa. Progress Notes by Jeff Corley DO at 05/17/16 1238 Author: Jeff Corley DO Service: Hospitalist Author Type: Physician Filed: 05/17/16 1600 Date of Service: 05/17/16 1238 Status: Addendum Hospitality Manager: Jeff Corley DO (Physician) Related Notes: Original Note by Jeff Corley DO (Physician) filed at 05/17/16 1559 PROGRESS NOTE 05/17/2016 for Reagan Amezquita on the hospitalist service. ASSESSMENT & PLAN Acute CVA S/p tPA, monitored in ICU, neuro stable. Continue aspirin, statin. BP has been in normal range, not an antihypertensives here or at home. Therapies working with patient, hope to transfer to [facility] pending insurance authorization (wy siobhan). May need to follow with vascular surgery [...] Problem: Ischemic stroke diagnosed during current admission ([facility]) Active Problems: Received intravenous tissue plasminogen activator [...] 87 (05/17 114) Resp: [18-20] 20 (05/17 114) SpO2: [92 %-99 %] 93 % (05/17 114) Weight: [78.5 kg (173 lb 1 oz)] [...] Management by Lisa Hogan RN at 05/17/16 6659 Author: Lisa Hogan RN Service: (none) Author Type: Registered Nurse Filed: 05/17/16 0516 Date of Service: 05/17/16 2159 Status: Addendum Hospitality Manager: Lisa Hogan RN (Registered Nurse) Related Notes: Original Note by Lisa Hogan RN (Registered Nurse) filed at 05/17/16 130 3 Per rounding with pt, he is A&O x4. Pending IPR. Sent email to Sheila at [facility] for status. Left VM for PT regarding f/u with pt 1230:Tc to spouse Jessica regarding snf placement in case I[facility] declines pt. Jessica upset as s he thought "doctor" had told her son yesterday that pt was a good candidate for IPR and was accepted to [facility]. Informed Jessica Machado has not made decision yet as he is "following pt". Jessica wants referrals sent to [facility] , [facility] and [facility]. Jessica asks that we dont mention to pt snf placement yet until a decision i s made about IPR. Negar onver elder Harris, Provider Unknown - 05/17/2016 10:05 AM PST Therapy Progress Note by TOLU Xiao/Parminder at 05/17/16 1005 Author: GABE Xiao Service: (none) Author Type: Occupational Therapist Filed: 05/17/16 1240 Date of Service: 05/17/16 1005 Status: Signed Hospitality Manager: GABE Xiao (Occupational Therapist) 05/17/16 1005 OT Last Visit OT Received On 05/17/16 Reason for Treatment Stroke Requires OT Follow Up Awaiting tx order OT Eval/Reassessment Date 05/17/16 Assistance Required 2 person Ergonomist Needed No Family/Caregiver Present No Precautions Other Precautions high fall risk, L hemiparesis Other Comments Comments OT eval orders received/verified. Pt willing to participate in OT this AM. Chart r eviewed-relevant to OT evaluation: Left sided weakness, s/p IV rtPA with little improvement, due to right bogdan infarction, most likely [id number] in etiology related to uncontrol led DM; [...] Days Recommendation Recommendation Rehab consult Equipment Recommended Multiple Slide Operator;Bedside commode;Elastic shoe laces;[facility] Ready for Discharge Yes (may benefit [...] note for PLOF Prior Function Level of [place] Independent with functional mobility;Independent with ADLs;Independe nt [...] equipment (bed level) LE Dressing Adaptive Equipment Multiple Slide Operator;Dressing stick Arm Goals Pt Will Tolerate SROM [...] order Recommendation Recommendation Rehab consult Equipment Recommended Multiple Slide Operator;Bedside commode;Elastic shoe laces;[facility] OT Ready for Discharge [...] stroke, neurological resource center guide Moderate - 07394 High - 35488 History Expanded review of medical records; additional review of physical, cognitive, or ps ychosocial skills Examination Identification of 5 or more performance deficits Decision Making Presents with comorbidities; significant modification of tasks or assistan ce is needed to complete eval Clinical Decision Making Complexity: Moderate 59802 onver elder Transaction, Provider Unknown - 05/17/2016 5:44 AM PST Nurse Progress Note by Hero You RN at 05/17/16543 Author: Hero You RN Service: (none) Author Type: Registered Nurse Filed: 05/17/1650 Date of Service: 05/17/16543 Status: Signed Hospitality Manager: Hero You RN (Registered Nurse) Pts VSS, pt denying pain and had multipe loose stools, pt placed on contact enteric per pro tocol. Pt repositioned as needed tonight. No other acute changes from previous end of shift report. Will continue monitoring. Hero You RN 05/17/2016 onver elder Transaction, Provider Unknown - 05/16/2016 4:52 PM PST Nurse Progress Note by Teena Matthew RN at 05/16/161651 Author: Teena Matthew RN Service: (none) Author Type: Registered Nurse Filed: 05/16/161652 Date of Service: 05/16/161651 Status: Addendum Hospitality Manager: Teena Matthew RN (Registered Nurse) Related Notes: Original Note by Teena Matthew RN (Registered Nurse) filed at 0050 No change from previous assessment. VSS, hourly rounding, call light within reach. Bed alar m set, neuro checks unchanged. Teena Matthew RN Wing Nina Fulton MD - 05/16/2016 3:12 PM PSTFormatting of this note might be different from the orig inal. Progress Notes by Wing Nina Machado MD at 05/16/16 151 Author: Wing Nina Machado MD Service: Physical Medicine and Rehab Author Type: Physician Filed: 05/16/161513 Date of Service: 05/16/161511 Status: Signed Hospitality Manager: Wing Nina Machado MD (Physician) Patient seen face-face for followup [...] clarification on his insurance situation WING Nina MACHADO MD 05/16/2016 3:12 PM Admission on 05/14/2016 Component Date Value Ref Range Status SOURCE 05/14/2016 NARES(NOSE) Final MRSA PCR 05/14/2016 NEGATIVE NEGATIVE Final Ventricular Rate 05/14/2016 90 Final Atrial Rate 05/14/2016 90 Final P-R Interval 05/14/2016 158 Final QRS Duration 05/14/2016 82 Final Q-T Interval 05/14/2016 372 Final QTC Calculation (Bezet) 05/14/2016 455 Final Calculated P [place] 05/14/2016 28 Final Calculated R [place] 05/14/2016 -3 Final Calculated T [place] 05/14/2016 38 Final Diagnosis 05/14/2016 Final Value:Normal [...] might be different from t kevin original. Case Management by HARIS De La Garza at 05/16/16 1336 Author: HARIS De La Garza Service: (none) Author Type: Science Job Titles Filed: 05/16/16 3745 Date of Service: 05/16/16 1341 Status: Signed Hospitality Manager: HARIS De La Garza (Science Job Titles) 05/16/16 1201 Discharge Planning Evaluation Admitting Diagnosis CVA, TPA given Readmission No Living Arrangements Spouse/significant other Support Systems Spouse/significant other Type of Residence Private residence House type House-Split level Steps to enter 10 Bathrooms on 1st Floor 1-Full Independent with ADL's Yes Independent with Mobility Yes;Other (comment) (pt uses a cane at baseline) Home Care Services No Caregiver after Discharge Other (comment) ( asists) Mental Status Oriented Prior functional status Independent, but having multiple falls and some left-sided weakness over past few weeks. Anticipated Discharge Plan Post Acute Care Needs Other (comment) (TBD) Resources Financial concerns No Transportation issues Yes Prescription Plan Yes Name of Pharmacy [facility] in [place], [place] or the [place] in [place] Previous home health equipment Yes;Comment (Pt uses a cane at baseline) Vascular access device No Ostomy/Drains/Appliances (TBD) Anticipated Disposition Facility Type Other (Comment) Met with patient Reagan Amezquita and discussed discharge planning. 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 The patient resides with his in [facility]. The patient was alert and oriented. He [...] disease, and TBI who initially presented to [facility] with left facial droop and left-sided weakness. He had an episode of urinary incontinence and fall, EMS called and patient was brought to [place]' ED. " "Patient is also complaining of a 3-week history of intermittent left-sided weakness and fal ls. He uses a cane for ambulation." Patient's PCP is: Patient's insurance: [employer] & Medicare Coverage concerns: no Medication coverage/concerns: no Rx Bedside Delivery: Preferred Pharmacy: [facility] in [place] or [facility] Community resources utilized / needed: TBD Assistance in transportation: Spouse - Jessica Amezquita [phone] or work [phone] Identification of any specific education / training: no Barriers to Discharge / Alternative housing needed: TBD Anticipated DCP: Home DWIGHT De La Garza John Hill MD - 05/16/2016 8:26 AM PST Progress Notes by John Myrick MD at 05/16/16 08 Author: John Myrick MD Service: (none) Author Type: Physician Filed: 05/16/16 1131 Date of Service: 05/16/16825 Status: Addendum Hospitality Manager: John Myrick MD (Physician) Related Notes: Original Note by John Myrick MD (Physician) filed at 05/16/16 1108 [facility] Service: Hospitalist Progress Note Pt: Reagan Amezquita AGE/SEX: 71 y.o. male : 1945 ROOM: [address] [place] [address] REQUESTING PROVIDER: John Myrick MD TODAY'S DATE: 05/16/2016 Hospital Day: LOS: 2 days + past medical history of DM 2 with neuropathy, DDD and TBI Transfer from [facility] seen there with left facial droop and left-sided weakness.,episode of urinary incontin ence and fall, .Acute infarction in the right bogdan, CT head unremarkablMRI e, no ICH. As N IHSS score of 14 TPA Was givien tranfer to [facility] for further care SUBJECTIVE aprt from witness [...] hours. No results for input(s): PHART, PO2ART, IIB5YBS, J8XTNYEY, BEART in the last 168 hours. No results for input(s): APTT, INR, PTT in the last 168 hours. No results for input(s): TSH, T3FREE, FREET4 in the last 168 hours. No results for input(s): CKTOTAL, TROPONINI, TROPONINT, CKMBINDEX in the last 168 hours. PROBLEM LIST Principal Problem: Ischemic stroke diagnosed during current admission ([facility]) Active Problems: Received intravenous tissue plasminogen activator (tPA) in emergency department Acute left hemiparesis (HCC) Type 2 diabetes mellitus with hyperglycemia, with long-term current use of insulin (HCC) Type 2 diabetes mellitus with diabetic neuropathy, with long-term current use of insulin (HCC) Moderate protein-calorie malnutrition (HCC) GERD (gastroesophageal reflux disease) Hypokalemia Essential hypertension, benign ASSESSMENT & PLAN Principal Problem: Ischemic stroke-Acute left hemiparesis (HCC) Ischemic stroke s/p TPA (05/14) ASA statin [...] DVT pro GI pro skin care JOHN MYRICK MD MD 05/16/2016 8:27 AM CTA review [...] this point his current strok are 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 Reagan Amezquita is a 71 y.o. male admitted to [...] due to right bogdan infarction, most likely [id number] in etiology related to uncontrolled DM. 2- [...] per patient and no documen tation), recommend terminal operations supervisor Holter (30 days). 8. General care including [...] Progress Note by Hero You RN at 05/16/16 0513 Author: Hero You RN Service: (none) Author Type: Registered Nurse Filed: 05/16/16 0515 Date of Service: 05/16/16 0513 Status: Signed Hospitality Manager: Hero You RN (Registered Nurse) Pt A&OX4, [...] 05/15/161938 Date of Service: 05/15/161930 Status: Addendum Hospitality Manager: Sandra Cedillo RN (Registered Nurse) Related Notes: [...] (none) Author Type: Physical Therapist Filed: 05/15/16 1356 Date of Service: 05/15/16 1242 Status: Signed Hospitality Manager: Douglas Coelho PT (Physical Therapist) 05/15/16 1242 PT Last Visit PT Received On 05/15/16 Reason for Treatment Stroke Requires PT Follow Up Awaiting tx order Follow up PT Only? Yes (complexity) PT Eval/Reassessment Date 05/15/16 Assistance Required 2 person Ergonomist Needed No Home Environment Type of Home Home two story Home Exterior Layout Entry steps none Home Interior Layout Flight one;Rail on L ascending;Lives on main level with bedroom/bathro om;Walker accessible Bathroom Shower/Tub Tub/shower unit Bathroom Toilet Standard Bathroom Equipment Hand-held shower head;Tub transfer bench Bathroom Accessibility Accessible via walker Home Equipment Walker 4 wheeled;Cane single point Prior Function Level of [place] Independent with functional mobility;Independent with ADLs;Independe nt [...] Barriers to Discharge Cognitive Deficits Impacting Functional [place];Physical Deficit s Impacting Functional [place];Self-care Deficits Impacting Functional [place];Malik rological Impairment (see comment) Recommendation Comments pt. needs Max x 2 for transfers and mobility and should benefit fro m SNF to improve strength, endurance and functional mobility 05/15/16 1242 PT Last Visit PT Received On 05/15/16 Reason for Treatment Stroke Requires PT Follow Up Awaiting tx order Follow up PT Only? Yes (complexity) PT Eval/Reassessment Date 05/15/16 Assistance Required 2 person Ergonomist Needed No Precautions UE Precaution(s) LUE Precautions/WB [...] Safety Devices Safety Devices in Place (call cassie in reach) Restraints Initially in Place No Plan Treatment/Interventions Bed mobility training;Balance training;Family training;Gait trainin g;Therapeutic exercise;Transfer training;W/C training PT Frequency 5-7x/wk;Once per day;Twice a day Care Duration (# of days) 7 # of days Recommendation Recommendations SNF Equipment Recommended (TBD) Barriers to Discharge Cognitive Deficits Impacting Functional [place];Physical Deficit s Impacting Functional [place];Self-care Deficits Impacting Functional [place];Malik rological Impairment (see comment) Recommendation Comments pt. needs Max x 2 for transfers and mobility and should benefit fro m SNF to improve strength, endurance and functional mobility Low - 22850 Moderate - 13837 High - 38617 History no personal factors &/or comorbidities 1-2 personal factors &/or comorbidities 3 o r more personal factors &/or comorbidities Examination 1-2 elements 3 elements 4 or more elements Clinical Presentation stable evolving unstable Clinical Decision Making Complexity: Low 41141 Moderate 46580 High 72651 Viviana Ferrer ARNP - 05/15/2016 9:41 AM PSTFormatting of this note might be different from stephanie brown original. Progress Notes by RUBEN Atkins at 05/15/16 09 Author: RUBEN Atkins Service: Medical Program Specialist Author Type: Advanced Registered Nu rse Practitioner Filed: 05/15/16 1345 Date of Service: 05/15/16940 Status: Signed Hospitality Manager: RUBEN Atkins (Advanced Registered Nurse Practitioner) [facility] Service: Medical Program Specialist Progress Note Reagan Amezquita 71 y.o. Hospital Day: LOS: 1 day Post-Op Day: * No surgery found * Consulting Physicians Treatment Team: Consulting Physician: Wing Nina Machado MD Consulting Physician: Angelica Bernardo MD Admitting Provider: Marlin Mckeon MD SUBJECTIVE Patient Summary: The patient is a 71 y.o. male with significant past medical history of DM 2 with neuropathy, degenerative disk disease, and TBI who initially presented to [facility] with left facial droop and left-sided weakness. He had an episode of uri nary incontinence and fall, EMS called and patient was brought to [facility] ED. Patient was last seen normal on [...] at 05/15/16 0941 Last data filed at 05/15/16 0800 Gross per 24 hour Intake 3509.2 [...] Problem: Ischemic stroke diagnosed during current admission ([facility]) Active Problems: Received intravenous tissue plasminogen activator [...] of 14. Follow up on arrival to [facility] 9. Dr. Bernardo following Keep BP < 180/105 mmHg, brain MRI 24 hours post-TPA with no e/o hemorrhage. Keep normoth ermic, normoglycemic. PT/OT/SHAKE CUTTER following. ? cardioembolic as cause for ischemic [...] On room air. GI/NUTRITION: Moderate protein-calorie malnutrition: [place] thick liquids per SHAKE CUTTER recs. GERD: on protonix at home. Continue [...] Progress Notes by Angelica Bernardo MD at 05/15/16912 Author: Angelica Bernardo MD Service: Neurology Author Type: Physician Filed: 05/15/16 9540 Date of Service: 05/15/16912 Status: Signed Hospitality Manager: Angelica Bernardo MD (Physician) Subjective: Patient seen and examined. Reagan Amezquita is a 71 y.o. male admitted to [...] due to right bogdan infarction, most likely [id number] in etiology related to uncontrolled DM. 2- [...] per patient and no documen tation), recommend group home Holter (30 days). 9. Consult PT, OT, [...] original. Progress Notes by Pretty Dhillon RD, CD at 05/14/16 152 Author: Pretty Dhillon RD, CD Service: (none) Author Type: Registered Dietitian Filed: 05/14/161528 Date of Service: 05/14/161528 Status: Signed Hospitality Manager: Pretty Dhillon RD, CD (Registered Dietitian) 05/14/16 5719 Subjective Timepoint Admit (dysphagia) Pt c/o Pt [...] Fluid / Beverage Intake Oral Fluids Amount [place] thick liquids ad bryant. Ok for 1 [...] subcutaneous fat. Digestive System (Mouth to Rectum) SHAKE CUTTER following for dysphagia. Skin Intact. Anthropometrics Weight [...] Estimated Energy Needs Total Energy Estimated Needs 5929-7905 kcal/day Method for Estimating Needs 25-30 kcal/kg admit wt (84.7 kg) Estimated Protein Needs Total Protein Estimated Needs 102-127 g protein/day Method for Estimating Needs 1.2-1.5 g protein/kg admit wt (84.7 kg) Recommendations Recommended energy needs Recommend adding diabetic diet restrictions to current SHAKE CUTTER diet or nigel to help optimize glycemic [...] Therapy Progress Note by Kate Hale MA CCC-SHAKE CUTTER at 05/14/16911 Author: Kate Hale MA CCC-SHAKE CUTTER Service: (none) Author Type: Speech and Language Patholo gist Filed: 05/14/1645 Date of Service: 05/14/16911 Status: Signed Hospitality Manager: Kate Hale MA CCC-SHAKE CUTTER (Speech and Language Pathologist) 05/14/16911 SHAKE CUTTER Last Visit SHAKE CUTTER Received On 05/14/16 Requires SHAKE CUTTER Follow Up Yes Swallowing Assessment Eval Swallowing [...] 1/2 trials by cup, none by spoon) [place] Presentation Cup;Self Fed Oral WFL Pharyngeal Phase [...] Larynge al Elevation Recommendations Liquids Consistency Recommendations [place] thick;Ice chips for oral comfort Diet Consistency [...] diet textures, no awareness until cued by SHAKE CUTTER. At this time, recommen d puree diet [...] monitoring;Patient/Family education; Assessment for upgrade Dysphagia Goals Retirement Goals Safe/efficient oral intake Pt will have safe/efficient oral intake Thin liquids;Mechanical soft diet;With min cues;Ne w/revised goal Short Term Goals Tolerate liquid consistency Pt will tolerate tolerate liquid consistency [place] thick liquids;with 1:1 supervision;New /revised goal onver elder Transaction, Provider Unknown - 05/14/2016 9:12 AM PST Therapy Progress Note by Zenon Schaeffer PT at 05/14/16911 Author: Zenon Schaeffer PT Service: Physical Medicine and Rehab Author Type: Physical Therapist Filed: 05/14/16 1556 Date of Service: 05/14/16911 Status: Signed Hospitality Manager: Zenon Schaeffer PT (Physical Therapist) 05/14/16911 PT Last Visit PT Received On 05/14/16 (Per notes received tPA around 2 a.m. Will hold PT to allow) Requires PT Follow Up On hold (24 hour therapeutic window s/p tPA) onver elder Transaction, Provider Unknown - 05/14/2016 5:57 AM PST Progress Notes by Iggy Lee RPH at 05/14/16 0557 Author: Iggy Lee RPH Service: Pharmacy Author Type: Pharmacist Filed: 05/14/16 0557 Date of Service: 05/14/16556 Status: Signed Hospitality Manager: Iggy Lee RPH (Pharmacist) Pharmacy will renal [...] | | | Fingerstick | performed at [facility];[address] | | LAB | | | | [address];[place], [place] | | | | | | [address] | | | | + + + [...] | | | Fingerstick | performed at [facility];[address] | | LAB | | | | [address];[place], [place] | | | | | | [address] | | | | + + + [...] | | | Fingerstick | performed at [facility];[address] | | LAB | | | | [address];[place] | | | | | | [address] | | | | + + + [...] | | | Fingerstick | performed at [facility];[address] | | LAB | | | | [address];[place] | | | | | | [address] | | | | + + + [...] | | | Fingerstick | performed at [facility];[address] | | LAB | | | | [address];[place] | | | | | | [address] | | | | + + + [...] | | | Fingerstick | performed at [facility];[address] | | LAB | | | | [address];[place], [place] | | | | | | [address] | | | | + + + [...] EXTERNAL | | | | performed at [facility], [address] | K/uL | LAB | | | | [address], | | | | | | [place] [address] | | | | + + + + + + | Red Blood | 4.96Comment: Testing | 4.20 - 5.70 | EXTERNAL | | | Cells | performed at [facility], [address] | M/uL | LAB | | | Counted | [address], | | | | | | [place] [address] | | | | + + + + + + | Hemoglobin | 14.1Comment: Testing | 13.2 - 17.0 | EXTERNAL | | | | performed at [facility], [address] | g/dL | LAB | | | | [address], | | | | | | [place], [place] [address] | | | | + + + + + + | Hematocrit, | 40.8Comment: Testing | 39.0 - 50.0 % | EXTERNAL | | | POC | performed at [facility], [address] | | LAB | | | | [address], | | | | | | [place] [address] | | | | + + + + + + | MCV | 82.3Comment: Testing | 80.0 - 100.0 fl | EXTERNAL | | | | performed at [facility], [address] | | LAB | | | | [address], | | | | | | [place] [address] | | | | + + + + + + | MCH | 28.5Comment: Testing | 27.0 - 34.0 pg | EXTERNAL | | | | performed at [facility], [address] | | LAB | | | | [address], | | | | | | [place] [address] | | | | + + + + + + | MCHC | 34.6Comment: Testing | 32.0 - 35.5 | EXTERNAL | | | | performed at [facility], [address] | g/dL | LAB | | | | [address], | | | | | | [place] [address] | | | | + + + + + + | RDW-CV | 42.0Comment: Testing | 37 - 53 fl | EXTERNAL | | | | performed at [facility], [address] | | LAB | | | | [address], | | | | | | [place] [address] | | | | + + + + + + | Platelet | 219Comment: Testing | 150 - 400 K/uL | EXTERNAL | | | Count | performed at [facility], [address] | | LAB | | | Plasma | [address], | | | | | | [place] [address] | | | | + + + + + + | MPV | 8.6Comment: Testing | fl | EXTERNAL | | | | performed at [facility], [address] | | LAB | | | | [address], | | | | | | [place] [address] | | | | + + + + + + | Differentia | AUTOMATEDComment: | | EXTERNAL | | | l Type | Testing performed at | | LAB | | | | [facility], [address] | | | | | | [place] | | | | | | [address] | | | | + + + + + + | % Segmented | 65.52Comment: Testing | % | EXTERNAL | | | | performed at [facility], [address] | | LAB | | | Neutrophils | [address], | | | | | | [place] [address] | | | | + + + + + + | % | 22.13Comment: Testing | % | EXTERNAL | | | Lymphocytes | performed at [facility], [address] | | LAB | | | | [address], | | | | | | [place] [address] | | | | + + + + + + | % Monocytes | 9.16Comment: Testing | % | EXTERNAL | | | | performed at [facility], [address] | | LAB | | | | [address], | | | | | | [place] [address] | | | | + + + + + + | % | 2.44Comment: Testing | % | EXTERNAL | | | Eosinophils | performed at [facility], [address] | | LAB | | | | [address], | | | | | | [place] [address] | | | | + + + + + + | % Basophils | 0.75Comment: Testing | % | EXTERNAL | | | | performed at [facility], [address] | | LAB | | | | [address], | | | | | | [place] [address] | | | | + + + + + + | Absolute | 6.91Comment: Testing | 1.90 - 7.40 | EXTERNAL | | | Segmented | performed at [facility], [address] | K/uL | LAB | | | Neutrophils | [address], | | | | | | [place] [address] | | | | + + + + + + | Absolute | 2.33Comment: Testing | 1.00 - 3.90 | EXTERNAL | | | Lymphocytes | performed at [facility], [address] | K/uL | LAB | | | | [address], | | | | | | [place] [address] | | | | + + + + + + | Absolute | 0.97 (H)Comment: Testing | 0.00 - 0.80 | EXTERNAL | | | Monocytes | performed at [facility], [address] | K/uL | LAB | | | | [address], | | | | | | [place] [address] | | | | + + + + + + | Absolute | 0.26Comment: Testing | 0.00 - 0.50 | EXTERNAL | | | Eosinophils | performed at [facility], [address] | K/uL | LAB | | | | [address], | | | | | | [place] [address] | | | | + + + + + + | Absolute | 0.08Comment: Testing | 0.00 - 0.10 | EXTERNAL | | | Basophils | performed at [facility], [address] | K/uL | LAB | | | | [address], | | | | | | [place] [address] | | | | + + + [...] EXTERNAL | | | | performed at [facility], [address] | | LAB | | | | [address], | | | | | | [place] [address] | | | | + + + [...] EXTERNAL | | | | performed at [facility], [address] | | LAB | | | | [address], | | | | | | [place] [address] | | | | + + + [...] | | | | | [place] [address] | | | | + + + + + + | K | 4.1Comment: Testing | 3.5 - 4.9 | EXTERNAL | | | | performed at [facility], [address] | mmol/L | LAB | | | | [address], | | | | | | [place] [address] | | | | + + + + + + | Cl | 104Comment: Testing | 99 - 109 mmol/L | EXTERNAL | | | | performed at [facility], [address] | | LAB | | | | [address], | | | | | | [place] [address] | | | | + + + + + + | CO2 | 27Comment: Testing | 23 - 32 mmol/L | EXTERNAL | | | | performed at [facility], [address] | | LAB | | | | [address], | | | | | | [place] [address] | | | | + + + + + + | Anion Gap | 12Comment: Testing | 5 - 20 mmol/L | EXTERNAL | | | | performed at [facility], [address] | | LAB | | | | [address], | | | | | | [place] [address] | | | | + + + + + + | Glucose, | 143 (H)Comment: Testing | 65 - 99 mg/dL | EXTERNAL | | | Fasting | performed at [facility], [address] | | LAB | | | | [address], | | | | | | [place] [address] | | | | + + + + + + | BUN | 9Comment: Testing | 8 - 25 mg/dL | EXTERNAL | | | | performed at [facility], [address] | | LAB | | | | [address], | | | | | | [place] [address] | | | | + + + + + + | Creatinine | 0.6 (L)Comment: Testing | 0.70 - 1.30 | EXTERNAL | | | | performed at [facility], [address] | mg/dL | LAB | | | | [address], | | | | | | [place] [address] | | | | + + + + + + | BUN/Creatin | 15Comment: Testing | | EXTERNAL | | | ine Ratio | performed at [facility], [address] | | LAB | | | | [address], | | | | | | [place] [address] | | | | + + + + + + | Calcium | 8.6Comment: Testing | 8.5 - 10.5 | EXTERNAL | | | | performed at [facility], [address] | mg/dL | LAB | | | | [facility], | | | | | | [place] [address] | | | | + + + [...] W | | | | | | [facility], | | | | | | [place] [address] | | | | + + + [...] | | | Fingerstick | performed at [facility];[address] | | LAB | | | | [address];[place] | | | | | | [address] | | | | + + + [...] | | | Fingerstick | performed at [facility];[address] | | LAB | | | | [address];[place], [place] | | | | | | [address] | | | | + + + [...] | | | Fingerstick | performed at [facility];[address] | | LAB | | | | [address];[place], [place] | | | | | | [address] | | | | + + + [...] | | | Fingerstick | performed at [facility];[address] | | LAB | | | | [address];[place], [place] | | | | | | [address] | | | | + + + [...] | | | | [facility], [address] | | | | | | [place] | | | | | | [address] | | | | + + + + + + | Red Blood | 4.92Comment: Testing | 4.20 - 5.70 | EXTERNAL | | | Cells | performed at [facility], [address] | M/uL | LAB | | | Counted | [address], | | | | | | [place] [address] | | | | + + + + + + | Hemoglobin | 13.9Comment: Testing | 13.2 - 17.0 | EXTERNAL | | | | performed at [facility], [address] | g/dL | LAB | | | | [address], | | | | | | [place] [address] | | | | + + + + + + | Hematocrit, | 40.8Comment: Testing | 39.0 - 50.0 % | EXTERNAL | | | POC | performed at [facility], [address] | | LAB | | | | [address], | | | | | | [place] [address] | | | | + + + + + + | MCV | 83.0Comment: Testing | 80.0 - 100.0 fl | EXTERNAL | | | | performed at [facility], [address] | | LAB | | | | [address], | | | | | | [place] [address] | | | | + + + + + + | MCH | 28.3Comment: Testing | 27.0 - 34.0 pg | EXTERNAL | | | | performed at [facility], [address] | | LAB | | | | [address], | | | | | | [place] [address] | | | | + + + + + + | MCHC | 34.0Comment: Testing | 32.0 - 35.5 | EXTERNAL | | | | performed at [facility], [address] | g/dL | LAB | | | | [address], | | | | | | [place] [address] | | | | + + + + + + | RDW-CV | 42.4Comment: Testing | 37 - 53 fl | EXTERNAL | | | | performed at [facility], [address] | | LAB | | | | [address], | | | | | | [place] [address] | | | | + + + + + + | Platelet | 215Comment: Testing | 150 - 400 K/uL | EXTERNAL | | | Count | performed at [facility], [address] | | LAB | | | Plasma | [address], | | | | | | [place] [address] | | | | + + + + + + | MPV | 8.5Comment: Testing | fl | EXTERNAL | | | | performed at [facility], [address] | | LAB | | | | [address], | | | | | | [place] [address] | | | | + + + + + + | Differentia | AUTOMATEDComment: | | EXTERNAL | | | l Type | Testing performed at | | LAB | | | | [facility], [address] | | | | | | [place] | | | | | | [address] | | | | + + + + + + | % Segmented | 70.19Comment: Testing | % | EXTERNAL | | | | performed at [facility], [address] | | LAB | | | Neutrophils | [address], | | | | | | [place] [address] | | | | + + + + + + | % | 17.93Comment: Testing | % | EXTERNAL | | | Lymphocytes | performed at [facility], [address] | | LAB | | | | [address], | | | | | | [place] [address] | | | | + + + + + + | % Monocytes | 8.97Comment: Testing | % | EXTERNAL | | | | performed at [facility], [address] | | LAB | | | | [address], | | | | | | [place] [address] | | | | + + + + + + | % | 2.27Comment: Testing | % | EXTERNAL | | | Eosinophils | performed at [facility], [address] | | LAB | | | | [address], | | | | | | [place] [address] | | | | + + + + + + | % Basophils | 0.64Comment: Testing | % | EXTERNAL | | | | performed at [facility], [address] | | LAB | | | | [address], | | | | | | [place] [address] | | | | + + + + + + | Absolute | 7.86 (H)Comment: Testing | 1.90 - 7.40 | EXTERNAL | | | Segmented | performed at [facility], [address] | [address] | LAB | | | Neutrophils | [address], | | | | | | [place] [address] | | | | + + + + + + | Absolute | 2.01Comment: Testing | 1.00 - 3.90 | EXTERNAL | | | Lymphocytes | performed at [facility], [address] | K/uL | LAB | | | | [address], | | | | | | [place] [address] | | | | + + + + + + | Absolute | 1.01 (H)Comment: Testing | 0.00 - 0.80 | EXTERNAL | | | Monocytes | performed at [facility], [address] | [address] | LAB | | | | [address], | | | | | | [place] [address] | | | | + + + + + + | Absolute | 0.25Comment: Testing | 0.00 - 0.50 | EXTERNAL | | | Eosinophils | performed at [facility], [address] | K/uL | LAB | | | | [address], | | | | | | [place] [address] | | | | + + + + + + | Absolute | 0.07Comment: Testing | 0.00 - 0.10 | EXTERNAL | | | Basophils | performed at [facility], [address] | K/uL | LAB | | | | [address], | | | | | | [place] [address] | | | | + + + [...] EXTERNAL | | | | performed at [facility], [address] | | LAB | | | | [address], | | | | | | [place] [address] | | | | + + + [...] EXTERNAL | | | | performed at [facility], [address] | | LAB | | | | [address], | | | | | | [place] [address] | | | | + + + [...] | | | | | [place] [address] | | | | + + + + + + | K | 3.9Comment: Testing | 3.5 - 4.9 | EXTERNAL | | | | performed at [facility], [address] | mmol/L | LAB | | | | [address], | | | | | | [place] [address] | | | | + + + + + + | Cl | 103Comment: Testing | 99 - 109 mmol/L | EXTERNAL | | | | performed at [facility], [address] | | LAB | | | | [address], | | | | | | [place] [address] | | | | + + + + + + | CO2 | 25Comment: Testing | 23 - 32 mmol/L | EXTERNAL | | | | performed at [facility], [address] | | LAB | | | | [address], | | | | | | [place] [address] | | | | + + + + + + | Anion Gap | 15Comment: Testing | 5 - 20 mmol/L | EXTERNAL | | | | performed at [facility], [address] | | LAB | | | | [address], | | | | | | [place] [address] | | | | + + + + + + | Glucose, | 132 (H)Comment: Testing | 65 - 99 mg/dL | EXTERNAL | | | Fasting | performed at [facility], [address] | | LAB | | | | [address], | | | | | | [place] [address] | | | | + + + + + + | BUN | 9Comment: Testing | 8 - 25 mg/dL | EXTERNAL | | | | performed at [facility], [address] | | LAB | | | | [address], | | | | | | [place] [address] | | | | + + + + + + | Creatinine | 0.5 (L)Comment: Testing | 0.70 - 1.30 | EXTERNAL | | | | performed at [facility], [address] | mg/dL | LAB | | | | [address], | | | | | | [place] [address] | | | | + + + + + + | BUN/Creatin | 18Comment: Testing | | EXTERNAL | | | ine Ratio | performed at [facility], [address] | | LAB | | | | [address], | | | | | | [place] [address] | | | | + + + + + + | Calcium | 8.4 (L)Comment: Testing | 8.5 - 10.5 | EXTERNAL | | | | performed at [facility], [address] | mg/dL | LAB | | | | [address], | | | | | | [place] [address] | | | | + + + + + + | Protein, | 6.0 (L)Comment: Testing | 6.3 - 8.2 g/dL | EXTERNAL | | | Total | performed at [facility], [address] | | LAB | | | | [address], | | | | | | [place] [address] | | | | + + + + + + | Albumin | 3.0 (L)Comment: Testing | 3.3 - 4.8 g/dL | EXTERNAL | | | | performed at [facility], [address] | | LAB | | | | [address], | | | | | | [place] [address] | | | | + + + + + + | Globulin | 3.0Comment: Testing | 1.3 - 4.9 g/dL | EXTERNAL | | | | performed at [facility], [address] | | LAB | | | [address], | | | | | | [place] [address] | | | | + + + + + + | A/G Ratio | 1.0Comment: Testing | 1.0 - 2.4 | EXTERNAL | | | | performed at [facility], [address] | | LAB | | | | [address], | | | | | | [place] [address] | | | | + + + + + + | Bilirubin | 1.4Comment: Testing | 0.1 - 1.5 mg/dL | EXTERNAL | | | Total | performed at [facility], [address] | | LAB | | | | [address], | | | | | | [place] [address] | | | | + + + + + + | ALP, | 77Comment: Testing | 35 - 115 U/L | EXTERNAL | | | External | performed at [facility], [address] | | LAB | | | | [address], | | | | | | [place] [address] | | | | + + + + + + | AST | 14Comment: Testing | 10 - 45 U/L | EXTERNAL | | | | performed at [facility], [address] | | LAB | | | | [address], | | | | | | [place] [address] | | | | + + + + + + | ALT | 13Comment: Testing | 10 - 65 U/L | EXTERNAL | | | | performed at [facility], [address] | | LAB | | | | [address], | | | | | | [place] [address] | | | | + + + [...] | | | | | [place] [address] | | | | + + + [...] | | | Fingerstick | performed at [facility];[address] | | LAB | | | | [place] | | | | | | [address] | | | | + + + [...] | | | Fingerstick | performed at [facility];[address] | | LAB | | | | [place] [address];[place], [place] | | | | | | [address] | | | | + + + [...] + + + | Patient Name: REAGAN AMEZQUITA Date of : 1945 | | | [...] | | | to suboptimal images. MEASUREMENTS Cleaning Laborer: | | | KVW Authenticated by: Aleksandar Dotson Report Date/Time: 05-16-2016 | | | 20:59:22 | | + + + + + | Procedure Note | + + | Johnson, Rad Conversion - 11/02/2018 6:55 AM PDT Patient Name: Aria AMEZQUITA of | | : 1945 Performing Physician: [...] due to suboptimal images. MEASUREMENTS | | Cleaning Laborer: ELIZABETHuthenticated by: Aleksandar DotsonReport Date/Time: 05-16-2016 20:59:22 | | IMPRESSION: 1. [...] | |MEASUREMENTS | | | | | |Cleaning Laborer: MARILUW | |Authenticated by: Aleksandar Dotson | |Report [...] | | | Fingerstick | performed at [facility];[address] | | LAB | | | | [place] | | | | | | [address] | | | | + + + [...] At | + + + | REAGAN AMEZQUITA 1945 71 years Male CTA HEAD NECK [...] was also examined | | | with Nebula 3D software for evaluation of the cerebral [...] Conversion - 11/02/2018 6:55 AM PDT REAGAN [id number] years MaleCTA | | HEAD NECK W [...] The data set was also examined with Nebula 3D software for evaluation of the cerebral [...] | | | + -------+ External Lab: LILY (05/16/2016 5:35 AM PST) + + + + + + | Component | Value | Ref Range | Performed | Pathologist | | | | | At | Signature | + + + + + + | WBC | 12.85 (H)Comment: | 3.80 - 11.00 | EXTERNAL | | | | Testing performed at | K/uL | LAB | | | | [facility], [address] [facility] | | | | | | [place] | | | | | | [address] | | | | + + + + + + | Red Blood | 4.77Comment: Testing | 4.20 - 5.70 | EXTERNAL | | | Cells | performed at [facility], [address] | M/uL | LAB | | | Counted | [facility], | | | | | | [place] [address] | | | | + + + + + + | Hemoglobin | 13.4Comment: Testing | 13.2 - 17.0 | EXTERNAL | | | | performed at [facility], [address] | g/dL | LAB | | | | [address], | | | | | | [place] [address] | | | | + + + + + + | Hematocrit, | 39.1Comment: Testing | 39.0 - 50.0 % | EXTERNAL | | | POC | performed at [facility], [address] | | LAB | | | [address], | | | | | | [place] [address] | | | | + + + + + + | MCV | 82.0Comment: Testing | 80.0 - 100.0 fl | EXTERNAL | | | | performed at [facility], [address] | | LAB | | | | [address], | | | | | | [place] [address] | | | | + + + + + + | MCH | 28.0Comment: Testing | 27.0 - 34.0 pg | EXTERNAL | | | | performed at [facility], [address] | | LAB | | | | [address], | | | | | | [place] [address] | | | | + + + + + + | MCHC | 34.1Comment: Testing | 32.0 - 35.5 | EXTERNAL | | | | performed at [facility], [address] | g/dL | LAB | | | | [address], | | | | | | [place] [address] | | | | + + + + + + | RDW-CV | 42.9Comment: Testing | 37 - 53 fl | EXTERNAL | | | | performed at [facility], [address] | | LAB | | | | [address], | | | | | | [place] [address] | | | | + + + + + + | Platelet | 238Comment: Testing | 150 - 400 K/uL | EXTERNAL | | | Count | performed at [facility], [address] | | LAB | | | Plasma | [address], | | | | | | [place] [address] | | | | + + + + + + | MPV | 8.8Comment: Testing | fl | EXTERNAL | | | | performed at [facility], [address] | | LAB | | | | [address], | | | | | | [place] [address] | | | | + + + + + + | Differentia | AUTOMATEDComment: | | EXTERNAL | | | l Type | Testing performed at | | LAB | | | | [facility], [address] | | | | | | [place] | | | | | | [address] | | | | + + + + + + | % Segmented | 68.92Comment: Testing | % | EXTERNAL | | | | performed at [facility], [address] | | LAB | | | Neutrophils | [address], | | | | | | [place] [address] | | | | + + + + + + | % | 18.94Comment: Testing | % | EXTERNAL | | | Lymphocytes | performed at [facility], [address] | | LAB | | | | [address], | | | | | | [place] [address] | | | | + + + + + + | % Monocytes | 10.32Comment: Testing | % | EXTERNAL | | | | performed at [facility], [address] | | LAB | | | | [address], | | | | | | [place] [address] | | | | + + + + + + | % | 1.25Comment: Testing | % | EXTERNAL | | | Eosinophils | performed at [facility], [address] | | LAB | | | | [address], | | | | | | [place] [address] | | | | + + + + + + | % Basophils | 0.57Comment: Testing | % | EXTERNAL | | | | performed at [facility], [address] | | LAB | | | | [address], | | | | | | [place] [address] | | | | + + + + + + | Absolute | 8.86 (H)Comment: Testing | 1.90 - 7.40 | EXTERNAL | | | Segmented | performed at [facility], [address] | K/uL | LAB | | | Neutrophils | [address], | | | | | | [place] [address] | | | | + + + + + + | Absolute | 2.44Comment: Testing | 1.00 - 3.90 | EXTERNAL | | | Lymphocytes | performed at [facility], [address] | K/uL | LAB | | | | [address], | | | | | | [place] [address] | | | | + + + + + + | Absolute | 1.33 (H)Comment: Testing | 0.00 - 0.80 | EXTERNAL | | | Monocytes | performed at [facility], [address] | K/uL | LAB | | | | [address], | | | | | | [place] [address] | | | | + + + + + + | Absolute | 0.16Comment: Testing | 0.00 - 0.50 | EXTERNAL | | | Eosinophils | performed at [facility], [address] | K/uL | LAB | | | | [address], | | | | | | [place] [address] | | | | + + + + + + | Absolute | 0.07Comment: Testing | 0.00 - 0.10 | EXTERNAL | | | Basophils | performed at [facility], [address] | K/uL | LAB | | | | [address], | | | | | | [place] [address] | | | | + + + [...] | | | Fingerstick | performed at [facility];[address] | | LAB | | | | [place] [address];[place], [place] | | | | | | [address] | | | | + + + [...] | | | | | performed at [facility], [address] | | | | | | [address], | | | | | | [place] [address] | | | | + + + [...] W | | | | | | [facility], | | | | | | [place] [address] | | | | + + + [...] | | | | | [place] [address] | | | | + + + + + + | K | 4.2Comment: SPECIMEN | 3.5 - 4.9 | EXTERNAL | | | | SLIGHTLY | mmol/L | LAB | | | | HEMOLYZEDTesting | | | | | | performed at [facility], [address] | | | | | | [address], | | | | | | [place] [address] | | | | + + + + + + | Cl | 104Comment: Testing | 99 - 109 mmol/L | EXTERNAL | | | | performed at [facility], [address] | | LAB | | | | [address], | | | | | | [place] [address] | | | | + + + + + + | CO2 | 25Comment: Testing | 23 - 32 mmol/L | EXTERNAL | | | | performed at [facility], [address] | | LAB | | | | [address], | | | | | | [place] [address] | | | | + + + + + + | Anion Gap | 14Comment: Testing | 5 - 20 mmol/L | EXTERNAL | | | | performed at [facility], [address] | | LAB | | | | [address], | | | | | | [place] [address] | | | | + + + [...] | | | | | [place] [address] | | | | + + + + + + | BUN | 9Comment: Testing | 8 - 25 mg/dL | EXTERNAL | | | | performed at [facility], [address] | | LAB | | | | [address], | | | | | | [place] [address] | | | | + + + + + + | Creatinine | 0.7Comment: SPECIMEN | 0.70 - 1.30 | EXTERNAL | | | | SLIGHTLY | mg/dL | LAB | | | | HEMOLYZEDTesting | | | | | | performed at [facility], [address] | | | | | [address], | | | | | | [place] [address] | | | | + + + + + + | BUN/Creatin | 13Comment: Testing | | EXTERNAL | | | ine Ratio | performed at [facility], [address] | | LAB | | | | [address], | | | | | | [place] [address] | | | | + + + + + + | Calcium | 8.5Comment: Testing | 8.5 - 10.5 | EXTERNAL | | | | performed at [facility], [address] | mg/dL | LAB | | | | [address], | | | | | | [place] [address] | | | | + + + + + + | Protein, | 5.8 (L)Comment: Testing | 6.3 - 8.2 g/dL | EXTERNAL | | | Total | performed at [facility], [address] | | LAB | | | | [address], | | | | | | [place] [address] | | | | + + + + + + | Albumin | 2.8 (L)Comment: Testing | 3.3 - 4.8 g/dL | EXTERNAL | | | | performed at [facility], [address] | | LAB | | | | [address], | | | | | | [place] [address] | | | | + + + + + + | Globulin | 3.0Comment: Testing | 1.3 - 4.9 g/dL | EXTERNAL | | | | performed at [facility], [address] | | LAB | | | | [address], | | | | | | [place] [address] | | | | + + + + + + | A/G Ratio | 0.9 (L)Comment: Testing | 1.0 - 2.4 | EXTERNAL | | | | performed at [facility], [address] | | LAB | | | | [address], | | | | | | [place] [address] | | | | + + + [...] | | | | | [place] [address] | | | | + + + + + + | ALP, | 77Comment: Testing | 35 - 115 U/L | EXTERNAL | | | External | performed at [facility], [address] | | LAB | | | | [address], | | | | | | [place] [address] | | | | + + + + + + | AST | 18Comment: SPECIMEN | 10 - 45 U/L | EXTERNAL | | | | SLIGHTLY | | LAB | | | | HEMOLYZEDTesting | | | | | | performed at [facility], [address] | | | | | | [address], | | | | | | [place] [address] | | | | + + + + + + | ALT | 15Comment: SPECIMEN | 10 - 65 U/L | EXTERNAL | | | | SLIGHTLY | | LAB | | | | HEMOLYZEDTesting | | | | | | performed at [facility], [address] | | | | | | [address], | | | | | | [place] [address] | | | | + + + [...] | | | | | [place] [address] | | | | + + + [...] | | | Fingerstick | performed at [facility];[address] | | LAB | | | | [place], [place] | | | | | | [address] | | | | + + + [...] | | | Fingerstick | performed at [facility];[address] | | LAB | | | | [place] | | | | | | [address] | | | | + + + [...] At | + + + | REAGAN AMEZQUITA US CAROTID DOPPLER, BILATERAL 05/15/2016 4:20 PM [...] Conversion - 11/02/2018 6:55 AM PDT REAGAN KENNA CAROTID DOPPLER, | | BILATERAL05/15/2016 4:20 PM [...] | | | | | [place] [address] | | | | + + + [...] | | | Fingerstick | performed at [facility];[address] | | LAB | | | | [place] | | | | | | [address] | | | | + + + [...] Performed At | + + + | [facility] MRI BRAIN WO AND MRA HEAD 05/15/2016 10:47 AM | | | HISTORY: Stroke. Status post TPA administration. TECHNIQUE: | | | Multiplanar MR imaging was performed through the brain without | | | gadolinium. 3-D uvyt-wb-zxukco MR angiography was also performed to | [...] Johnson, Rad Conversion - 11/02/2018 6:55 AM [facility] BRAIN WO AND MRA | | HEAD05/15/2016 10:47 AM HISTORY:Stroke. Status post TPA administration. | | TECHNIQUE:Multiplanar MR imaging was performed through the brain without gadolinium. 3-D | | ndju-un-gefjtd MR angiography was also performed to the [...] | | | Fingerstick | performed at [facility];[address] | | LAB | | | | [place] | | | | | | [address] | | | | + + + [...] | | | Fingerstick | performed at [facility];[address] | | LAB | | | | [place] | | | | | | [address] | | | | + + + [...] | | | Fingerstick | performed at [facility];[address] | | LAB | | | | [address];[place], [place] | | | | | | [address] | | | | + + + [...] | | | Fingerstick | performed at [facility];[address] | | LAB | | | | [place] | | | | | | [address] | | | | + + + [...] | | | | [facility], [address] [facility] | | | | | | [place] | | | | | | [address] | | | | + + + + + + | Red Blood | 5.01Comment: Testing | 4.20 - 5.70 | EXTERNAL | | | Cells | performed at [facility], [address] | M/uL | LAB | | | Counted | [address] [place], | | | | | | [place] [address] | | | | + + + + + + | Hemoglobin | 14.0Comment: Testing | 13.2 - 17.0 | EXTERNAL | | | | performed at [facility], [address] | g/dL | LAB | | | | [address] [place], | | | | | | [place] [address] | | | | + + + + + + | Hematocrit, | 40.8Comment: Testing | 39.0 - 50.0 % | EXTERNAL | | | POC | performed at [facility], [address] | | LAB | | | | [address], | | | | | | [place] [address] | | | | + + + + + + | MCV | 81.5Comment: Testing | 80.0 - 100.0 fl | EXTERNAL | | | | performed at [facility], [address] | | LAB | | | [address], | | | | | | [place] [address] | | | | + + + + + + | MCH | 27.9Comment: Testing | 27.0 - 34.0 pg | EXTERNAL | | | | performed at [facility], [address] | | LAB | | | | [address], | | | | | | [place] [address] | | | | + + + + + + | MCHC | 34.2Comment: Testing | 32.0 - 35.5 | EXTERNAL | | | | performed at [facility], [address] | g/dL | LAB | | | | [address], | | | | | | [place] [address] | | | | + + + + + + | RDW-CV | 42.0Comment: Testing | 37 - 53 fl | EXTERNAL | | | | performed at [facility], [address] | | LAB | | | | [address], | | | | | | [place] [address] | | | | + + + + + + | Platelet | 257Comment: Testing | 150 - 400 K/uL | EXTERNAL | | | Count | performed at [facility], [address] | | LAB | | | Plasma | [place], | | | | | | [place] [address] | | | | + + + + + + | MPV | 8.4Comment: Testing | fl | EXTERNAL | | | | performed at [facility], [address] | | LAB | | | | [address], | | | | | | [place] [address] | | | | + + + + + + | Differentia | AUTOMATEDComment: | | EXTERNAL | | | l Type | Testing performed at | | LAB | | | | [facility], [address] | | | | | | [place] | | | | | | [address] | | | | + + + + + + | % Segmented | 72.88Comment: Testing | % | EXTERNAL | | | | performed at [facility], [address] | | LAB | | | Neutrophils | [address], | | | | | | [place], [place] [address] | | | | + + + + + + | % | 17.64Comment: Testing | % | EXTERNAL | | | Lymphocytes | performed at [facility], [address] | | LAB | | | | [address], | | | | | | [place], [place] [address] | | | | + + + + + + | % Monocytes | 8.16Comment: Testing | % | EXTERNAL | | | | performed at [facility], [address] | | LAB | | | | [address], | | | | | | [place] [address] | | | | + + + + + + | % | 1.06Comment: Testing | % | EXTERNAL | | | Eosinophils | performed at [facility], [address] | | LAB | | | | [address], | | | | | | [place] [address] | | | | + + + + + + | % Basophils | 0.26Comment: Testing | % | EXTERNAL | | | | performed at [facility], [address] | | LAB | | | | [address], | | | | | | [place] [address] | | | | + + + + + + | Absolute | 10.84 (H)Comment: | 1.90 - 7.40 | EXTERNAL | | | Segmented | Testing performed at | K/uL | LAB | | | Neutrophils | [facility], [address] | | | | | | [place] | | | | | | [address] | | | | + + + + + + | Absolute | 2.62Comment: Testing | 1.00 - 3.90 | EXTERNAL | | | Lymphocytes | performed at [facility], [address] | K/uL | LAB | | | | [address] [place], | | | | | | [place] [address] | | | | + + + + + + | Absolute | 1.21 (H)Comment: Testing | 0.00 - 0.80 | EXTERNAL | | | Monocytes | performed at [facility], [address] | K/uL | LAB | | | | [address], | | | | | | [place] [address] | | | | + + + + + + | Absolute | 0.16Comment: Testing | 0.00 - 0.50 | EXTERNAL | | | Eosinophils | performed at [facility], [address] | K/uL | LAB | | | | [address], | | | | | | [place] [address] | | | | + + + + + + | Absolute | 0.04Comment: Testing | 0.00 - 0.10 | EXTERNAL | | | Basophils | performed at [facility], [address] | [address] | LAB | | | | [address], | | | | | | [place] [address] | | | | + + + [...] EXTERNAL | | | | performed at [facility], [address] | | LAB | | | | [address], | | | | | | [place] [address] | | | | + + + [...] EXTERNAL | | | | performed at [facility], [address] | | LAB | | | | [address], | | | | | | [place] [address] | | | | + + + [...] | EXTERNAL | | | A1c | [place] Diabetes | | LAB | | | [...] | | | | | performed at [facility], [address] | | | | | | [address], | | | | | | [place] [address] | | | | + + + [...] | | | | | performed at [facility], [address] | | | | | | [address], | | | | | | [place] [address] | | | | + + + [...] EXTERNAL | | | | performed at [facility], [address] | | LAB | | | | [address], | | | | | | [place] [address] | | | | + + + + + + | Triglycerid | 152 (H)Comment: Testing | mg/dL | EXTERNAL | | | es | performed at [facility], [address] | | LAB | | | | [address], | | | | | | [place] [address] | | | | + + + + + + | HDL | 31 (L)Comment: Testing | mg/dL | EXTERNAL | | | | performed at [facility], [address] | | LAB | | | | [address], | | | | | | [place] [address] | | | | + + + + + + | LDL, | 47Comment: Testing | mg/dL | EXTERNAL | | | Calculated | performed at [facility], [address] | | LAB | | | | [address], | | | | | | [place] [address] | | | | + + + [...] | | | | | [place] [address] | | | | + + + + + + | K | 3.3 (L)Comment: Testing | 3.5 - 4.9 | EXTERNAL | | | | performed at [facility], [address] | mmol/L | LAB | | | | [address], | | | | | | [place] [address] | | | | + + + + + + | Cl | 104Comment: Testing | 99 - 109 mmol/L | EXTERNAL | | | | performed at [facility], [address] | | LAB | | | | [address], | | | | | | [place] [address] | | | | + + + + + + | CO2 | 25Comment: Testing | 23 - 32 mmol/L | EXTERNAL | | | | performed at [facility], [address] | | LAB | | | | [address], | | | | | | [place] [address] | | | | + + + + + + | Anion Gap | 12Comment: Testing | 5 - 20 mmol/L | EXTERNAL | | | | performed at [facility], [address] | | LAB | | | | [address], | | | | | | [place] [address] | | | | + + + + + + | Glucose, | 125 (H)Comment: Testing | 65 - 99 mg/dL | EXTERNAL | | | Fasting | performed at [facility], [address] | | LAB | | | | [address], | | | | | | [place] [address] | | | | + + + + + + | BUN | 11Comment: Testing | 8 - 25 mg/dL | EXTERNAL | | | | performed at [facility], [address] | | LAB | | | | [address], | | | | | | [place] [address] | | | | + + + + + + | Creatinine | 0.7Comment: Testing | 0.70 - 1.30 | EXTERNAL | | | | performed at [facility], [address] | mg/dL | LAB | | | | [address], | | | | | | [place] [address] | | | | + + + + + + | BUN/Creatin | 16Comment: Testing | | EXTERNAL | | | ine Ratio | performed at [facility], [address] | | LAB | | | | [address], | | | | | | [place] [address] | | | | + + + + + + | Calcium | 8.3 (L)Comment: Testing | 8.5 - 10.5 | EXTERNAL | | | | performed at [facility], [address] | mg/dL | LAB | | | | [address], | | | | | | [place] [address] | | | | + + + [...] | | | | | | at L, [address] | | | | | | [address], | | | | | | [place] [address] | | | | + + + [...] | | | Fingerstick | performed at [facility];[address] | | LAB | | | | [address];[place], [place] | | | | | | [address] | | | | + + + [...] | | | Fingerstick | performed at [facility];[address] | | LAB | | | | [address];[place], [place] | | | | | | [address] | | | | + + + [...] | | | Fingerstick | performed at [facility];[address] | | LAB | | | | [place];[place] | | | | | | [address] | | | | + + + [...] | | | Fingerstick | performed at [facility];[address] | | LAB | | | | [address];[place], [place] | | | | | | [address] | | | | + + + [...] | | | Fingerstick | performed at [facility];[address] | | LAB | | | | [address];[place] | | | | | | [address] | | | | + + + [...] | | | Fingerstick | performed at [facility];[address] | | LAB | | | | [address];[place] | | | | | | [address] | | | | + + + [...] | | | Fingerstick | performed at [facility];[address] | | LAB | | | | [address];[place] | | | | | | [address] | | | | + + + [...] | | | Fingerstick | performed at [facility];[address] | | LAB | | | | [address];[place] | | | | | | [address] | | | | + + + [...] | | | Fingerstick | performed at [facility];[address] | | LAB | | | | [address];[place], [place] | | | | | | [address] | | | | + + + [...] | | | Fingerstick | performed at [facility];[address] | | LAB | | | | [address];[place], [place] | | | | | | [address] | | | | + + + [...] | | | Fingerstick | performed at [facility];[address] | | LAB | | | | [place];[place] | | | | | | [address] | | | | + + + [...] | | | Fingerstick | performed at [facility];[address] | | LAB | | | | [address];[place] | | | | | | [address] | | | | + + + [...] | | | Fingerstick | performed at [facility];[address] | | LAB | | | | [address];[place] | | | | | | [address] | | | | + + + [...] | | | Fingerstick | performed at [facility];[address] | | LAB | | | | [address];[place] | | | | | | [address] | | | | + + + [...] | | | Fingerstick | performed at [facility];[address] | | LAB | | | | [place] | | | | | | [address] | | | | + + + [...] | | | Fingerstick | performed at [facility];8 | | LAB | | | | Kiara Jaramillo;[place], [place] | | | | | | [address] | | | | + + + [...] + + + | Patient Name: REAGAN AMEZQUITA Date of : 1945 | | | [...] | | Jefe: 0.48 m/s TV Dec [place]: 3.62 m/s2 TV Dec Time: 136.62 | | | ms TV E Jefe: 0.49 m/s TV E/A Ratio: 1.02 Cleaning Laborer: TRINY | | | Authenticated by: [place]ar [place] Report Date/Time: 05-14-2016 | | | 17:14:37 | | + + + + + | Procedure Note | + + | Eliel Ornelas Conversion - 11/02/2018 6:55 AM PDT Patient Name: Aria AMEZQUITA of | | : 1945 Performing Physician: [...] | Index (A-L): 25.78 ml/m2LAAs A2C: 20.06 [id number] A-L A2C: 56.80 mlLAESV MOD A2C: | | 53.98 mlLALs A2C: 6.01 cmLAAs A4C: 18.67 [id number] A-L A4C: 45.70 mlLAESV MOD A4C: | | 43.69 mlLALs A4C: 6.47 cmHR: 94.31 BPMAV maxP.45 mmHgAV meanP.54 | | mmHgAV Vmax: 1.61 m/Abilio Vmean: 1.22 m/Abilio VTI: 27.30 cmAVA Vmax: 2.68 cm2AVA | | (VTI): 2.69 [id number] Vmax: 0.00 cm2/m2AVAI (VTI): 0.00 cm2/m2LVCI Dopp: 3.08 | | [id number] Dopp: 6.31 l/minHR: 85.80 BPMLVOT maxP.48 mmHgLVOT meanP.11 | | mmHgLVSI Dopp: 35.92 ml/m2LVSV Dopp: 73.65 mlLVOT Vmax: 1.36 m/sLVOT Vmean: 0.96 | | m/sLVOT VTI: 23.22 cmMCO: 392.13 msMV A Jefe: 1.50 m/sMV DecT: 213.25 msMV E | | Jefe: 0.88 m/sMV E/A Ratio: 0.59MV PHT: 74.39 msMVA By PHT: 2.95 oa3Buniln e': | | 0.05 m/sSeptal E/e': 14.80RAP: 8 mmHgTV A Jefe: 0.48 m/sTV Dec [place]: 3.62 m/s2TV | | Dec Time: 136.62 msTV E Jefe: 0.49 m/sTV E/A Ratio: 1.02 Cleaning Laborer: | | GDAuthenticated by: [facility] Date/Time: 05-14-2016 17:14:37 IMPRESSION: 1. | | [...] A Jefe: 0.48 m/s | |TV Dec [place]: 3.62 m/s2 | |TV Dec Time: 136.62 ms | |TV E Jefe: 0.49 m/s | |TV E/A Ratio: 1.02 | | | |Cleaning Laborer: TRINY | |Authenticated by: Aleksandar Dotson | [...] EXTERNAL LAB | | Testing performed at [address];[place] [address] MRSA PCR | | | NEGATIVE Testing performed at | | | [address];[place] [address] | | + + + + +---------+ [...] | | | Fingerstick | performed at [facility];[address] | | LAB | | | | [address];[place], [place] | | | | | | [address] | | | | + + + [...] + + | Historically converted procedure from [facility] Epic environment | EXTERNAL LAB | + + [...] | Ischemic stroke diagnosed during current admission (HCC) | + + | Type 2 diabetes mellitus with diabetic neuropathy, with long-term current use of | | insulin (HCC) | + + | Moderate protein-calorie malnutrition (HCC) Malnutrition of moderate degree | + + | Gastroesophageal reflux disease without esophagitis Esophageal reflux | + + | Hypokalemia Hypopotassemia | + + | Essential hypertension, benign | + + documented in this encounter
--- OUTSIDE RECORDS SUMMARY | ~2019-08-23 | XMS | Encounter Summary ---
Demographics + + + | Address | [address] | | | [place] [address] | + + + | Home Phone | | + + + | Preferred Language | Unknown | + + + | Marital Status | | + + + | Yazdanism Affiliation | 1076 | + + + [...] + | Jessica Shepard | ECON | [address] | | | | | [place] | | | | | [address] | | + + + + + | Bel Solis | ECON | Unknown | | + + + + + Care Team Providers + +------+ + | Care Spa Technician Name | Role | Phone | + +------+ + PCP | Unavailable | + +------+ + Encounter Details +--------+ + + + + | Date | Type | Department | Care Team | Description | +--------+ + + + + | 09/14/ | Hospital | [facility] | | | | 2001 | Encounter | MED [facility] XRAY [address] | | | | | | [place] | | | | | | [place] [address] | | | | | | [phone] | | | +--------+ + + + [...]
--- OUTSIDE RECORDS SUMMARY | ~2019-08-23 | XMS | Encounter Summary ---
Demographics + + + | Address | [address] | | | [place] [address] | + + + | Home Phone | | + + + | Preferred Language | Unknown | + + + | Marital Status | | + + + | Orthodoxy Affiliation | 1076 | + + + | Race | Unknown | + + + | Ethnic Group | Unknown | + + + Author + + + | Author | [facility] | | | and [place] | + + + | Organization | [facility] | | | and [place] | + + + | Address | Unknown | + + + | Phone | Unavailable | + + + Support + + + + + | Name | Relationship | Address | Phone | + + + + + | Jessica Shepard | ECON | [address] | | | | | [place] | | | | | [address] | | + + + + + | Bel Solis | ECON | Unknown | | + + + + + Care Team Providers + +------+ + | Care Twister In Name | Role | Phone | + [...] + + | 05/15/ | Office | [facility] | Dylan Gaston, | Chronic | | 2020 | Visit | INFECTIOUS DISEASE | Hero Malave MD | osteomyelitis of | | | | [address] | [address] | right foot (HCC) | | | | [place], [place] | [place] [address] | (Primary Dx); Acute | | | | [address] | [phone] | osteomyelitis of | | | | [phone] | | metatarsal bone, | | | [...] Garcia MD - 05/15/2019 3:20 PM PST [facility] Service: Infectious Diseases Outpatient Follow [...] atory failurewho presents as a transfer from [place] ED. Patient is somewhat of a poor historian so the majority of the history is obtained from the record and from the ED physic jacob. Patient had recently been admitted to the [facility] from 03/28/19 to 04/04/19 w here he was treated/diagnosed with systolic heart failure, type 2 MT/NSTEMI, SHAE, ARF. It ap pears that patient [...] on the . Patient was discharged to [facility]. While there patient apparently became decompensated and desaturated into t he 80s so patient was brought the to ED at [facility] again (03/1618). Patient was found to have [...] coverage a call was made to the director of corporate responsibility coal miner here at [facility] (Dr. Jessenia Wallace), who recommended patient be [...] Procedure: CYSTOSCOPY; Surgeon: Aleksander Montiel MD; Location: [facility] MAIN OR CHOLECYSTECTOMY FEMORAL-TIBIAL BYPASS GRAFT Right 04/18/2019 Procedure: BYPASS GRAFT FEMORAL-TIBIAL; Surgeon: Gianluca Robbins MD; Location: [facility] MAIN OR HERNIA REPAIR TOE AMPUTATION Right 11/21/2017 Procedure: Amputation Right 5th Metatarsal; Surgeon: Simone Aceves DPM; Location: [facility] SOCIAL HISTORY Social History Socioeconomic History Marital [...] file Gets together: Not on file Attends restorationism service: Not on file Active member of [...] bacterial infection Gangrene of left foot (HCC) 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
--- OUTSIDE RECORDS SUMMARY | ~2019-08-23 | XMS | Encounter Summary ---
Demographics + + + | Address | [address] | | | [place] [address] | + + + | Home Phone | | + + + | Preferred Language | Unknown | + + + | Marital Status | | + + + | Anglican Affiliation | 1076 | + + + | Race | Unknown | + + + | Ethnic Group | Unknown | + + + Author + + + | Author | [facility] | | | and [place] | + + + | Organization | [facility] | | | and [place] | + + + | Address | Unknown | + + + | Phone | Unavailable | + + + Support + + + + + | Name | Relationship | Address | Phone | + + + + + | Jessica Shepard | ECON | [address] | | | | | [place] | | | | | [address] | | + + + + + | Bel Solis | ECON | Unknown | | + + + + + Care Team Providers + +------+ + | Care Explosives Worker Name | Role | Phone | + +------+ + | Dian Lr NP | PCP | | + +------+ + Encounter Details +--------+ + + + + | Date | Type | Department | Care Team | Description | +--------+ + + + + | 05/14/ | Hospital | [facility] | Conversion | Pain | | 2017 | Encounter | CONVERSION DEP [address] | Transaction, | | | | | [address] | Provider Unknown | | | | | [place]IE [place]ERS | [phone] | | | | | [address] | | | | | | [phone] | | | +--------+ + + + [...] +--------+ + + + | XR CHEST 1 VIEW | Routin | 05/14/2016 | | Results for this | | | e | 3:07 AM | | procedure are in the | | | | PST | | results section. | + +--------+ + + + documented in this encounter Results XR Chest 1 Vw (05/14/2016 3:07 AM PST) + + | Specimen | + + | | + + + + + | Narrative | Performed At | + + + | This is a non-reportable procedure without a radiologist report and | | | is used for image storage only | | + + + + + | Procedure Note | + + | Eliel Ornelas - 11/02/2018 6:55 AM PDT This is a non-reportable procedure | | without a radiologist report and isused for image storage only | + + documented in this encounter Visit Diagnoses + + | Diagnosis | + + | Pain Generalized pain | + + documented in this encounter"
--- OUTSIDE RECORDS SUMMARY | ~2019-08-23 | XMS | Encounter Summary ---
Demographics + + + | Address | [address] | | | [place] [address] | + + + | Home Phone | | + + + | Preferred Language | Unknown | + + + | Marital Status | | + + + | Zoroastrianism Affiliation | 1076 | + + + | Race | Unknown | + + + | Ethnic Group | Unknown | + + + Author + + + | Author | [facility] | | | and [place] | + + + | Organization | [facility] | | | and [place] | + + + | Address | Unknown | + + + | Phone | Unavailable | + + + Support + + + + + | Name | Relationship | Address | Phone | + + + + + | Jessica Amezquita | ECON | [address] | | | | | [place] | | | | | [address] | | + + + + + | Bel Solis | ECON | Unknown | | + + + + + Care Team Providers + +------+ + | Care Internal Control Consultant Name | Role | Phone | + +------+ + | Dian Lr NP | PCP | | + +------+ + Encounter Details +--------+ + + + + | Date | Type | Department | Care Team | Description | +--------+ + + + + | 05/14/ | Hospital | [facility] | Marlin Mckeon | Received intravenous | | 2017 - | Encounter | [facility] | MD [place] [address] | tissue plasminogen | | | | CARE FLOOR [address] [place], [place] | activator (tPA) in | | 05/19/ | | [facility] | [id number] | emergency | | 2017 | | [place], [place] | | department; Acute | | | | [address] | | left hemiparesis | | | | [phone] | | ([facility]); 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 | | | | | | with hyperglycemia, | | | | | | with long-term | | | | | | current use of | | | | | | insulin ([facility]); | | | | | | Ischemic stroke | | | | | | diagnosed during | | | | | | current admission | | | | | | ([facility]); 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 Service: Hospitalist Discharge Summary Date of Admission: [...] edema Skin - dry no erythema Disposition: shelter Condition: Stable Code Status: Full Code Discharge [...] Tolerated Follow up: Saurabh Fritz DO [address] [address] Medication List START taking these medications atorvastatin [...] Date of Service: 05/19/16 1231 Status: Signed Delivery Recruiter: Sandra Cedillo RN (Registered Nurse) Report given to ELLIOT M[facility]quez at [facility]. Pt aware of transfer plan. Facility van to pick pt up at 1300. onver elder Transaction, Provider Unknown - 05/19/2016 11:41 AM PST Case Management by Lisa Hogan RN at 05/19/16 1141 Author: Lisa Hogan RN Service: (none) Author Type: Registered Nurse Filed: 05/19/16 1142 Date of Service: 05/19/16 1141 Status: Signed Delivery Recruiter: Lisa Hogan RN (Registered Nurse) 05/19/16 1128 Anticipated Disposition Facility Type USP facility Discharge Appointment Time 1300 Medicare Important Message (ROS) Given Retirement Facility Other (comment) ([facility]) Disposition: [facility] Transportation: W/C van provided by facility All orders, signed AVS, and prescriptions have been faxed All DC paperwork completed Patient and family in agreement with discharge plan Medicare important message (Given or N/A): yes Tc to spouse Jessica who agrees with d/c plan to [facility]. Negar onver elder Transaction, Provider Unknown - 05/19/2016 11:40 AM PST Therapy Progress Note by hTeresa Gonzales PT at 05/19/16 1140 Author: Theresa Gonzales PT Service: (none) Author Type: Physical Therapist Filed: 05/19/16 1140 Date of Service: 05/19/16 1140 Status: Signed Delivery Recruiter: Theresa Gonzales PT (Physical Therapist) 05/19/16 1139 [...] Author: HARIS Lemon Service: (none) Author Type: Ticker Maintainer Filed: 05/19/16 1114 Date of Service: 05/19/16 1102 Status: Signed Delivery Recruiter: HARIS Lemon (Ticker Maintainer) 05/19/16 1100 Discharge Planning Evaluation Admitting Diagnosis CVA, TPA given Anticipated Disposition Facility Type USP facility Retirement Facility Other (comment) ([facility]) CARDIOLOGY TECHNOLOGIST p/c Cheryl Bashir [facility] Coordinator, states she received phone call from [facility], asking for authorization. CARDIOLOGY TECHNOLOGIST assisted Pt and Pt (Jessica Devyn [phone]) regarding [facility] form, assisted with form and faxed to [facility] Coordinator - Cheryl Bashir [phone] ext. [phone]. During filli ng out [facility] form, Pt stated "We wanted [facility] over [facility], but we were told [facility] was denied by [place]." CARDIOLOGY TECHNOLOGIST provided choice of accepting facili ties. CARDIOLOGY TECHNOLOGIST p/c Carlos with [facility] states they will accept Pt, they are VA contracted, if Pt choice. CARDIOLOGY TECHNOLOGIST met with Negar ZARATE regarding the discrepancy of information about Pt choice. CARDIOLOGY TECHNOLOGIST with [facility] met with Pt and Pt (Jessica Amezquita) regarding choice, after lengthy discussion, they went back and forth regarding facilities, Pt finally chose [facility]. DCP: [facility] NAOMY BOGGSSTANLEY, Ticker Maintainer [phone] cell onver elder Transaction, Provider Unknown - 05/19/2016 8:06 AM PST Case Management by Lisa Hogan RN at 05/19/16 0806 Author: Lisa Hogan RN Service: (none) Author Type: Registered Nurse Filed: 05/19/161111 Date of Service: 05/19/16805 Status: Addendum Delivery Recruiter: Lisa Hogan RN (Registered Nurse) Related Notes: Original Note by Lisa Hogan RN (Registered Nurse) filed at 05/19/16 082 1 0800:Tc to Carlos at [facility]/[phone] re VA benefits and acceptance. Tc to Jessica, she states she rather have pt go to [facility] and not [facility]/. Went to meet with pt and he spoke to Jessica over the phone and agrees with going to [facility]. Tc to Jimmy at [facility], left [facility] re acceptance. 1030: per Jimmy, they can [...] Note by Hero You RN at 05/19/16 8780 Author: Hero You RN Service: (none) Author Type: Registered Nurse Filed: 05/19/16 0525 Date of Service: 05/19/16524 Status: Signed Delivery Recruiter: Hero You RN (Registered Nurse) No acute changes from previous end of shift report. Will continue monitoring. Hero You RN 05/19/2016 onver elder Transaction, Provider Unknown - 05/18/2016 6:32 PM PST Nurse Progress Note by Sandra Cedillo RN at 05/18/161831 Author: Sandra Cedillo RN Service: (none) Author Type: Registered Nurse Filed: 05/18/161833 Date of Service: 05/18/161831 Status: Signed Delivery Recruiter: Sandra Cedillo RN (Registered Nurse) Pt had [...] Date of Service: 05/18/16 1252 Status: Signed Delivery Recruiter: Jeff Corley DO (Physician) PROGRESS NOTE 05/18/2016 [...] Problem: Ischemic stroke diagnosed during current admission ([facility]) Active Problems: Received intravenous tissue plasminogen [...] had an extended conversation with c ase general manager road production about which SNF's/towns he liked and which [...] Notes by Jenn Richey RD at 05/18/16 4138 Author: Jenn Richey RD Service: (none) Author Type: Registered Dietitian Filed: 05/18/16 115 Date of Service: 05/18/16 1150 Status: Signed Delivery Recruiter: Jenn Richey RD (Registered Dietitian) 05/18/16 1055 Subjective Timepoint Follow up Pt c/o In [...] Physical Findings Digestive System (Mouth to Rectum) CYCLE COUNTER following for dysphagia Anthropometrics Weight change Wt [...] Date of Service: 05/18/16 1131 Status: Addendum Delivery Recruiter: Lisa Hogan RN (Registered Nurse) Related Notes: Original Note by Lisa Hogan RN (Registered Nurse) filed at 05/18/16 154 2 1000: Tc melyssa Olmedo([phone] ext [phone]) with VA "Gec" program regardign snf placemen t. Per Ly, pt needs to go to a VA contracted snf if he wants the VA to provide for copay after his medicare coverage no longer pays 100%. Ly statesthese are some available VA c ontracted snfs: [facility], [facility], [facility], [facility]. [facility] nd [place] are not contracted with them. Per Ly, if paperwork(PT/MD notes and GEC form ) is submitted now, they can admit pt to a VA contracted snf under VA benefits. Informed Salo wang will discuss with pt and spouse Jessica. Per email from Sheila with [facility], pt declined for [facility]. 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 1200: Tc to spouse Jessica, , [facility] regarding snf placement. Met with pt regarding snf and VA benefits. Pt states he will discuss with spouse, but would consider going to [place]/[facility]. Sent e-referrals. Pt states Jessica will be here this evening and would like to discuss with CM options. Informed pt [facility]) has accepted pt but they are not VA contracted. 1300: per rounding with pt, he wants referral sent to [facility] too. Referral sent. Referral sent to HARIS Nichols to assist with "GEC" paperwork for the VA 1500: Tc to Carlos with [facility]([phone]), he thinks pt can be accepted when medically roseann dy, but first have to review pt's VA benefits to make sure rehab is covered. Tc to Jessica again,([phone]) left [facility] about rehab placement. Attempted to call Shonda reilly at work,[phone], busy signal. 1530: per Jimmy at [facility], they can accept pt when he is medically ready and if he wants to go there. Notified pt onver elder Transaction, Provider Unknown - 05/18/2016 10:37 AM PST Progress Notes by Khadar Osman RD, DANNY at 05/18/16 1037 Author: Khadra Osman RD, CDE Service: (none) Author Type: Operating Room Surgical Technologist Filed: 05/18/16 1044 Date of Service: 05/18/16 1037 Status: Signed Delivery Recruiter: Khadra Osman RD, CDE (Operating Room Surgical Technologist) Met with pt. Reports he's had diabetes for 6 years. He gets all medications through the [facility] for his diabetes. States his of 49 years also has insulin dependent diabetes. At [facility] he was prescribed: 50 units of Lantus [...] his blood sugar. Reports he's been through [employer] [facility] education classes two times - but [...] the VA. Khadra Osman RD, MPH, CDE, Operating Room Surgical Technologist 05/18/2016 10:43 AM onver elder Transaction, Provider Unknown - 05/18/2016 4:36 AM PST Nurse Progress Note by Hero You RN at 05/18/16435 Author: Hero Yuo RN Service: (none) Author Type: Registered Nurse Filed: 05/18/16436 Date of Service: 05/18/16435 Status: Signed Delivery Recruiter: Hero You RN (Registered Nurse) Pts VSS, [...] 05/17/161701 Date of Service: 05/17/161699 Status: Signed Delivery Recruiter: Sandra Cedillo RN (Registered Nurse) Pt anxious [...] Date of Service: 05/17/16 1500 Status: Signed Delivery Recruiter: Cheryl Rodney PT (Physical Therapist) 05/17/16 1500 PT Last Visit PT Received On 05/17/16 Reason for Treatment Stroke Requires PT Follow Up Yes Follow up PT Only? Yes (complexity) Assistance Required 2 person Vector Control Assistant Needed No Precautions UE Precaution(s) LUE Precautions/WB [...] lift for transfer back to bed - RN/CODING CLERKS SUPERVISOR aware of pt positioning/abilities and need for [...] Barriers to Discharge Cognitive Deficits Impacting Functional [place];Self-care Defici ts Impacting Functional [place];Physical Deficits Impacting Functional [place];Malik rological Impairment (see comment) Recommendation Comments Pt [...] Date of Service: 05/17/16 1238 Status: Addendum Delivery Recruiter: Jeff Corley DO (Physician) Related Notes: Original Note by Jeff Corley DO (Physician) filed at 05/17/16 1559 PROGRESS NOTE 05/17/2016 for Reagan Amezquita on the hospitalist service. ASSESSMENT & PLAN Acute CVA S/p tPA, monitored in ICU, neuro stable. Continue aspirin, statin. BP has been in normal range, not an antihypertensives here or at home. Therapies working with patient, hope to transfer to [facility] pending insurance authorization (ca siobhan). May need to follow with vascular [...] Problem: Ischemic stroke diagnosed during current admission ([facility]) Active Problems: Received intravenous tissue plasminogen [...] Management by Lisa Hogan RN at 05/17/16 8312 Author: Lisa Hogan RN Service: (none) Author Type: Registered Nurse Filed: 05/17/16 1541 Date of Service: 05/17/16 0617 Status: Addendum Delivery Recruiter: Lisa Hogan RN (Registered Nurse) Related Notes: Original Note by Lisa Hogan RN (Registered Nurse) filed at 05/17/16 130 3 Per rounding with pt, he is A&O x4. Pending IPR. Sent email to Sheila at [facility] for status. Left VM for PT regarding f/u with pt 1230:Tc to spouse Jessica regarding snf placement in case [facility] declines pt. Jessica upset as s he thought "doctor" had told her son yesterday that pt was a good candidate for [facility] and was accepted to [facility]. Informed Jessica Machado has not made decision yet as he is "following pt". Jessica wants referrals sent to [place] , [facility] and [facility]. Jessica asks that we dont mention to pt snf placement yet until a decision i s made about IPR. Negar onver elder Harris, Provider Unknown - 05/17/2016 10:05 AM PST Therapy Progress Note by TOLU Xiao/Parminder at 05/17/16 1005 Author: GABE Xiao Service: (none) Author Type: Occupational Therapist Filed: 05/17/16 1240 Date of Service: 05/17/16 1005 Status: Signed Delivery Recruiter: GABE Xiao (Occupational Therapist) 05/17/16 1005 OT Last Visit OT Received On 05/17/16 Reason for Treatment Stroke Requires OT Follow Up Awaiting tx order OT Eval/Reassessment Date 05/17/16 Assistance Required 2 person Vector Control Assistant Needed No Family/Caregiver Present No Precautions Other Precautions high fall risk, L hemiparesis Other Comments Comments OT eval orders received/verified. Pt willing to participate in OT this AM. Chart r eviewed-relevant to OT evaluation: Left sided weakness, s/p IV rtPA with little improvement, due to right bogdan infarction, most likely [id number] in etiology related to uncontrol led DM; [...] Days Recommendation Recommendation Rehab consult Equipment Recommended Hazardous Materials Waste Technician;Bedside commode;Elastic shoe laces;[facility] Ready for Discharge Yes (may benefit [...] note for PLOF Prior Function Level of [place] Independent with functional mobility;Independent with ADLs;Independe nt [...] equipment (bed level) LE Dressing Adaptive Equipment Hazardous Materials Waste Technician;Dressing stick Arm Goals Pt Will Tolerate SROM [...] order Recommendation Recommendation Rehab consult Equipment Recommended Hazardous Materials Waste Technician;Bedside commode;Elastic shoe laces;[facility] OT Ready for Discharge [...] stroke, neurological resource center guide Moderate - 39526 High - 71000 History Expanded review of medical records; additional review of physical, cognitive, or ps ychosocial skills Examination Identification of 5 or more performance deficits Decision Making Presents with comorbidities; significant modification of tasks or assistan ce is needed to complete eval Clinical Decision Making Complexity: Moderate [address] onver elder Transaction, Provider Unknown - 05/17/2016 5:44 AM PST Nurse Progress Note by Hero You RN at 05/17/16543 Author: Hero You RN Service: (none) Author Type: Registered Nurse Filed: 05/17/1650 Date of Service: 05/17/16543 Status: Signed Delivery Recruiter: Hero You RN (Registered Nurse) Pts VSS, [...] 05/16/161652 Date of Service: 05/16/161651 Status: Addendum Delivery Recruiter: Teena Matthew RN (Registered Nurse) Related Notes: Original Note by Teena Matthew RN (Registered Nurse) filed at 3560 No change from previous assessment. VSS, hourly [...] 05/16/161513 Date of Service: 05/16/161511 Status: Signed Delivery Recruiter: Wing Nina Machado MD (Physician) Patient seen [...] Calculation (Bezet) 05/14/2016 455 Final Calculated P [place] 05/14/2016 28 Final Calculated R [place] 05/14/2016 -3 Final Calculated T [place] 05/14/2016 38 Final Diagnosis 05/14/2016 Final Value:Normal [...] by HARIS De La Garza at 05/16/16 3402 Author: HARIS De La Garza Service: (none) Author Type: Clinical Trainer Filed: 05/16/16 5633 Date of Service: 05/16/16 3077 Status: Signed Delivery Recruiter: HARIS De La Garza (Clinical Trainer) 05/16/16 1201 Discharge Planning Evaluation Admitting Diagnosis [...] Yes Name of Pharmacy [facility] in [place], [place] or [place] Previous home health equipment Yes;Comment (Pt uses a cane at baseline) Vascular access device No Ostomy/Drains/Appliances (TBD) Anticipated Disposition Facility Type Other (Comment) Met with patient Reagan Amezquita and discussed discharge planning. 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 The patient resides with his in [facility]. The patient was alert and oriented. [...] disease, and TBI who [facility] with left facial droop and left-sided weakness. He had an episode of urinary incontinence and fall, EMS called and patient was brought to [facility] ED. " "Patient is also complaining of a 3-week history of intermittent left-sided weakness and fal ls. He uses a cane for ambulation." Patient's PCP is: Patient's insurance: [employer] & Medicare Coverage concerns: no Medication coverage/concerns: no Rx Bedside Delivery: Preferred Pharmacy: [facility] [place] or [facility] Community resources utilized / needed: TBD Assistance in transportation: Spouse - Jessica Amezquita [phone] or work [phone] Identification of any specific education / training: no Barriers to Discharge / Alternative housing needed: TBD Anticipated DCP: Home DWIGHT De La aGrza John Hill MD - 05/16/2016 8:26 AM PST Progress Notes by John Myrick MD at 05/16/16 08 Author: John Myrick MD Service: (none) Author Type: Physician Filed: 05/16/16 1131 Date of Service: 05/16/16825 Status: Addendum Delivery Recruiter: John Myrick MD (Physician) Related Notes: Original Note by John Myrick MD (Physician) filed at 05/16/[address] [facility] Service: Hospitalist Progress Note Pt: Reagan Amezquita AGE/SEX: 71 y.o. male : 1945 ROOM: [address] [place] [address] REQUESTING PROVIDER: John Myrick MD TODAY'S DATE: 05/16/2016 Hospital Day: LOS: 2 days + past medical history of DM 2 with neuropathy, DDD and TBI Transfer from [facility] seen there with left facial droop and left-sided weakness.,episode of urinary incontin ence and fall, .Acute infarction in the right bogdan, CT head unremarkablMRI e, no ICH. As N IHSS score of 14 TPA Was givien tranfer [facility] [place] further care SUBJECTIVE aprt from witness [...] hours. No results for input(s): PHART, PO2ART, VUI8ZWW, E0HBSPNP, BEART in the last 168 hours. No results for input(s): APTT, INR, PTT in the last 168 hours. No results for input(s): TSH, T3FREE, FREET4 in the last 168 hours. No results for input(s): CKTOTAL, TROPONINI, TROPONINT, CKMBINDEX in the last 168 hours. PROBLEM LIST Principal Problem: Ischemic stroke diagnosed during current admission ([facility]) Active Problems: Received intravenous tissue plasminogen [...] this point his current strok are pattern drawing hand ior circulation at this point asymtomatic carotid stenosiis Consider and need f/ up vascular at out patie nt once d/c Angelica Pearson M D - 05/16/2016 8:26 AM PST Progress Notes by Angelica Bernardo MD at 05/16/16825 Author: Angelica Bernardo MD Service: Neurology Author Type: Physician Filed: 05/16/16840 Date of Service: 05/16/16825 Status: Signed Delivery Recruiter: Angelica Bernardo MD (Physician) Subjective: Patient seen [...] due to right bogdan infarction, most likely idoaky-vi-qjqxmn in etiology related to uncontrolled DM. 2- [...] per patient and no documen tation), recommend lunchroom monitor Holter (30 days). 8. General care including [...] Date of Service: 05/16/16 0513 Status: Signed Delivery Recruiter: Hero You RN (Registered Nurse) Pt A&OX4, [...] 05/15/161938 Date of Service: 05/15/161930 Status: Addendum Delivery Recruiter: Sandra Cedillo RN (Registered Nurse) Related Notes: [...] Date of Service: 05/15/16 1242 Status: Signed Delivery Recruiter: Douglas Coelho PT (Physical Therapist) 05/15/16 1242 PT Last Visit PT Received On 05/15/16 Reason for Treatment Stroke Requires PT Follow Up Awaiting tx order Follow up PT Only? Yes (complexity) PT Eval/Reassessment Date 05/15/16 Assistance Required 2 person Vector Control Assistant Needed No Home Environment Type of Home Home two story Home Exterior Layout Entry steps none Home Interior Layout Flight one;Rail on L ascending;Lives on main level with bedroom/bathro om;Walker accessible Bathroom Shower/Tub Tub/shower unit Bathroom Toilet Standard Bathroom Equipment Hand-held shower head;Tub transfer bench Bathroom Accessibility Accessible via walker Home Equipment Walker 4 wheeled;Cane single point Prior Function Level of [place] Independent with functional mobility;Independent with ADLs;Independe nt [...] Barriers to Discharge Cognitive Deficits Impacting Functional [place];Physical Deficit s Impacting Functional [place];Self-care Deficits Impacting Functional [place];Malik rological Impairment (see comment) Recommendation Comments pt. needs Max x 2 for transfers and mobility and should benefit fro m SNF to improve strength, endurance and functional mobility 05/15/16 1242 PT Last Visit PT Received On 05/15/16 Reason for Treatment Stroke Requires PT Follow Up Awaiting tx order Follow up PT Only? Yes (complexity) PT Eval/Reassessment Date 05/15/16 Assistance Required 2 person Vector Control Assistant Needed No Precautions UE Precaution(s) LUE Precautions/WB [...] Barriers to Discharge Cognitive Deficits Impacting Functional [place];Physical Deficit s Impacting Functional [place];Self-care Deficits Impacting Functional [place];Malik rological Impairment (see comment) Recommendation Comments pt. needs Max x 2 for transfers and mobility and should benefit fro m SNF to improve strength, endurance and functional mobility Low - 65347 Moderate - 56907 High - 02420 History no personal factors &/or comorbidities 1-2 personal factors &/or comorbidities 3 o r more personal factors &/or comorbidities Examination 1-2 elements 3 elements 4 or more elements Clinical Presentation stable evolving unstable Clinical Decision Making Complexity: Low 54381 Moderate 37253 High 59656 Viviana Ferrer ARNP - 05/15/2016 9:41 AM PSTFormatting of this note might be different from stephanie brown original. Progress Notes by RUBEN Atkins at 05/15/16 09 Author: RUBEN Atkins Service: Riprap Placing Supervisor Author Type: Advanced Registered Nu rse Practitioner Filed: 05/15/16 1345 Date of Service: 05/15/16940 Status: Signed Delivery Recruiter: RUBEN Atkins (Advanced Registered Nurse Practitioner) [facility] Service: Riprap Placing Supervisor Progress Note Reagan Amezquita 71 [facility] [...] disease, and TBI who initially presented to [facility] with left facial droop and left-sided weakness. He had an episode of uri nary incontinence and fall, EMS called and patient was brought to [facility] ED. Patient was last seen normal [...] Problem: Ischemic stroke diagnosed during current admission ([facility]) Active Problems: Received intravenous tissue plasminogen [...] of 14. Follow up on arrival to [facility] 9. Dr. Bernardo following Keep BP < 180/105 mmHg, brain MRI 24 hours post-TPA with no e/o hemorrhage. Keep normoth ermic, normoglycemic. PT/OT/CYCLE COUNTER following. ? cardioembolic as cause for ischemic [...] On room air. GI/NUTRITION: Moderate protein-calorie malnutrition: Ellijay thick liquids per CYCLE COUNTER recs. GERD: on protonix at home. Continue [...] Service: Neurology Author Type: Physician Filed: 05/15/16 8780 Date of Service: 05/15/16912 Status: Signed Delivery Recruiter: Angelica Bernardo MD (Physician) Subjective: Patient seen [...] due to right bogdan infarction, most likely [id number] in etiology related to uncontrolled DM. 2- [...] per patient and no documen tation), recommend mcfp Holter (30 days). 9. Consult PT, OT, [...] 05/14/161528 Date of Service: 05/14/161528 Status: Signed Delivery Recruiter: Pretty Dhillon RD, CD (Registered Dietitian) 05/14/16 1789 Subjective Timepoint Admit (dysphagia) Pt c/o Pt [...] Fluid / Beverage Intake Oral Fluids Amount Ellijay thick liquids ad bryant. Ok for 1 [...] subcutaneous fat. Digestive System (Mouth to Rectum) CYCLE COUNTER following for dysphagia. Skin Intact. Anthropometrics Weight [...] Estimated Energy Needs Total Energy Estimated Needs 2519-0938 kcal/day Method for Estimating Needs 25-30 kcal/kg admit wt (84.7 kg) Estimated Protein Needs Total Protein Estimated Needs 102-127 g protein/day Method for Estimating Needs 1.2-1.5 g protein/kg admit wt (84.7 kg) Recommendations Recommended energy needs Recommend adding diabetic diet restrictions to current CYCLE COUNTER diet or nigel to help optimize glycemic [...] Therapy Progress Note by Kate Hale MA CCC-CYCLE COUNTER at 05/14/16911 Author: Kate Hale MA CCC-CYCLE COUNTER Service: (none) Author Type: Speech and Language Patholo gist Filed: 05/14/1645 Date of Service: 05/14/16911 Status: Signed Delivery Recruiter: Kate Hale MA CCC-CYCLE COUNTER (Speech and Language Pathologist) 05/14/16911 CYCLE COUNTER Last Visit CYCLE COUNTER Received On 05/14/16 Requires CYCLE COUNTER Follow Up Yes Swallowing Assessment Eval Swallowing [...] 1/2 trials by cup, none by spoon) Ellijay Presentation Cup;Self Fed Oral WFL Pharyngeal Phase [...] Larynge al Elevation Recommendations Liquids Consistency Recommendations Ellijay thick;Ice chips for oral comfort Diet Consistency [...] diet textures, no awareness until cued by CYCLE COUNTER. At this time, recommen d puree diet [...] monitoring;Patient/Family education; Assessment for upgrade Dysphagia Goals [facility] Goals Safe/efficient oral intake Pt will have safe/efficient oral intake Thin liquids;Mechanical soft diet;With min cues;Ne w/revised goal Short Term Goals Tolerate liquid consistency Pt will tolerate tolerate liquid consistency Ellijay thick liquids;with 1:1 supervision;New /revised goal onver elder Transaction, Provider Unknown - 05/14/2016 9:12 AM PST Therapy Progress Note by Zenon Schaeffer PT at 05/14/16911 Author: Zenon Schaeffer PT Service: Physical Medicine and Rehab Author Type: Physical Therapist Filed: 05/14/16 1556 Date of Service: 05/14/16911 Status: Signed Delivery Recruiter: Zenon Schaeffer PT (Physical Therapist) 05/14/16911 PT [...] 0557 Date of Service: 05/14/16556 Status: Signed Delivery Recruiter: Iggy Lee RPH (Pharmacist) Pharmacy will renal [...] | | | Fingerstick | performed at [facility] | | LAB | | | | [address];[place], [place] | | | | | | [address] | | | | + + + [...] | | | Fingerstick | performed at [facility];[address] | | LAB | | | | [address];[place], [place] | | | | | | [address] | | | | + + + [...] | | | Fingerstick | performed at [facility];[address] | | LAB | | | | [place] [address];[place] | | | | | | [address] | | | | + + + [...] | | | Fingerstick | performed at [facility];[address] | | LAB | | | | [place] [address];[place] | | | | | | [address] | | | | + + + [...] | | | Fingerstick | performed at [facility];[address] | | LAB | | | | [place] [address];[place] | | | | | | [address] | | | | + + + [...] | | | Fingerstick | performed at [facility];[address] | | LAB | | | | [address];[place], [place] | | | | | | [address] | | | | + + + [...] EXTERNAL | | | | performed at [facility], [address] | K/uL | LAB | | | | [address], | | | | | | [place] [address] | | | | + + + + + + | Red Blood | 4.96Comment: Testing | 4.20 - 5.70 | EXTERNAL | | | Cells | performed at [facility], [address] | M/uL | LAB | | | Counted | [address], | | | | | | [place] [address] | | | | + + + + + + | Hemoglobin | 14.1Comment: Testing | 13.2 - 17.0 | EXTERNAL | | | | performed at [facility], [address] | g/dL | LAB | | | | [address], | | | | | | [place], [place] [address] | | | | + + + + + + | Hematocrit, | 40.8Comment: Testing | 39.0 - 50.0 % | EXTERNAL | | | POC | performed at [facility], [address] | | LAB | | | | [address], | | | | | | [place] [address] | | | | + + + + + + | MCV | 82.3Comment: Testing | 80.0 - 100.0 fl | EXTERNAL | | | | performed at [facility], [address] | | LAB | | | | [address], | | | | | | [place] [address] | | | | + + + + + + | MCH | 28.5Comment: Testing | 27.0 - 34.0 pg | EXTERNAL | | | | performed at [facility], [address] | | LAB | | | | [address], | | | | | | [place] [address] | | | | + + + + + + | MCHC | 34.6Comment: Testing | 32.0 - 35.5 | EXTERNAL | | | | performed at [facility], [address] | g/dL | LAB | | | | [address], | | | | | | [place] [address] | | | | + + + + + + | RDW-CV | 42.0Comment: Testing | 37 - 53 fl | EXTERNAL | | | | performed at [facility], [address] | | LAB | | | | [address], | | | | | | [place] [address] | | | | + + + + + + | Platelet | 219Comment: Testing | 150 - 400 K/uL | EXTERNAL | | | Count | performed at [facility], [address] | | LAB | | | Plasma | [address], | | | | | | [place] [address] | | | | + + + + + + | MPV | 8.6Comment: Testing | fl | EXTERNAL | | | | performed at [facility], [address] | | LAB | | | | [address], | | | | | | [place] [address] | | | | + + + + + + | Differentia | AUTOMATEDComment: | | EXTERNAL | | | l Type | Testing performed at | | LAB | | | | [facility], [address] | | | | | | [place] | | | | | | [address] | | | | + + + + + + | % Segmented | 65.52Comment: Testing | % | EXTERNAL | | | | performed at [facility], [address] | | LAB | | | Neutrophils | [address], | | | | | | [place] [address] | | | | + + + + + + | % | 22.13Comment: Testing | % | EXTERNAL | | | Lymphocytes | performed at [facility], [address] | | LAB | | | | [address], | | | | | | [place] [address] | | | | + + + + + + | % Monocytes | 9.16Comment: Testing | % | EXTERNAL | | | | performed at [facility], [address] | | LAB | | | | [address], | | | | | | [place] [address] | | | | + + + + + + | % | 2.44Comment: Testing | % | EXTERNAL | | | Eosinophils | performed at [facility], [address] | | LAB | | | | [address], | | | | | | [place] [address] | | | | + + + + + + | % Basophils | 0.75Comment: Testing | % | EXTERNAL | | | | performed at [facility], [address] | | LAB | | | | [address], | | | | | | [place] [address] | | | | + + + + + + | Absolute | 6.91Comment: Testing | 1.90 - 7.40 | EXTERNAL | | | Segmented | performed at [facility], [address] | K/uL | LAB | | | Neutrophils | [address], | | | | | | [place] [address] | | | | + + + + + + | Absolute | 2.33Comment: Testing | 1.00 - 3.90 | EXTERNAL | | | Lymphocytes | performed at [facility], [address] | K/uL | LAB | | | | [address], | | | | | | [place] [address] | | | | + + + + + + | Absolute | 0.97 (H)Comment: Testing | 0.00 - 0.80 | EXTERNAL | | | Monocytes | performed at [facility], [address] | K/uL | LAB | | | | [address], | | | | | | [place] [address] | | | | + + + + + + | Absolute | 0.26Comment: Testing | 0.00 - 0.50 | EXTERNAL | | | Eosinophils | performed at [facility], [address] | K/uL | LAB | | | | [address], | | | | | | [place] [address] | | | | + + + + + + | Absolute | 0.08Comment: Testing | 0.00 - 0.10 | EXTERNAL | | | Basophils | performed at [facility], [address] | K/uL | LAB | | | | [address], | | | | | | [place] [address] | | | | + + + [...] EXTERNAL | | | | performed at [facility], [address] | | LAB | | | | [address], | | | | | | [place] [address] | | | | + + + [...] EXTERNAL | | | | performed at [facility], [address] | | LAB | | | | [address], | | | | | | [place] [address] | | | | + + + [...] | | | | | [place] [address] | | | | + + + + + + | K | 4.1Comment: Testing | 3.5 - 4.9 | EXTERNAL | | | | performed at [facility], [address] | mmol/L | LAB | | | | [address], | | | | | | [place] [address] | | | | + + + + + + | Cl | 104Comment: Testing | 99 - 109 mmol/L | EXTERNAL | | | | performed at [facility], [address] | | LAB | | | | [address], | | | | | | [place] [address] | | | | + + + + + + | CO2 | 27Comment: Testing | 23 - 32 mmol/L | EXTERNAL | | | | performed at [facility], [address] | | LAB | | | | [address], | | | | | | [place] [address] | | | | + + + + + + | Anion Gap | 12Comment: Testing | 5 - 20 mmol/L | EXTERNAL | | | | performed at [facility], [address] | | LAB | | | | [address], | | | | | | [place] [address] | | | | + + + + + + | Glucose, | 143 (H)Comment: Testing | 65 - 99 mg/dL | EXTERNAL | | | Fasting | performed at [facility], [address] | | LAB | | | | [address], | | | | | | [place] [address] | | | | + + + + + + | BUN | 9Comment: Testing | 8 - 25 mg/dL | EXTERNAL | | | | performed at [facility], [address] | | LAB | | | | [address], | | | | | | [place] [address] | | | | + + + + + + | Creatinine | 0.6 (L)Comment: Testing | 0.70 - 1.30 | EXTERNAL | | | | performed at [facility], [address] | mg/dL | LAB | | | | [address], | | | | | | [place] [address] | | | | + + + + + + | BUN/Creatin | 15Comment: Testing | | EXTERNAL | | | ine Ratio | performed at [facility], [address] | | LAB | | | | [address], | | | | | | [place] [address] | | | | + + + + + + | Calcium | 8.6Comment: Testing | 8.5 - 10.5 | EXTERNAL | | | | performed at [facility], [address] | mg/dL | LAB | | | | [facility], | | | | | | [place] [address] | | | | + + + [...] W | | | | | | [facility], | | | | | | [place] [address] | | | | + + + [...] | | | Fingerstick | performed at [facility];[address] | | LAB | | | | [address];[place] | | | | | | [address] | | | | + + + [...] | | | Fingerstick | performed at [facility];[address] | | LAB | | | | [address];[place], [place] | | | | | | [address] | | | | + + + [...] | | | Fingerstick | performed at [facility];[address] | | LAB | | | | [address];[place], [place] | | | | | | [address] | | | | + + + [...] | | | Fingerstick | performed at [facility];[address] | | LAB | | | | [address];[place], [place] | | | | | | [address] | | | | + + + [...] | | | | [facility], [address] [facility] | | | | | | [place] | | | | | | [address] | | | | + + + + + + | Red Blood | 4.92Comment: Testing | 4.20 - 5.70 | EXTERNAL | | | Cells | performed at [facility], [address] | M/uL | LAB | | | Counted | [address], | | | | | | [place] [address] | | | | + + + + + + | Hemoglobin | 13.9Comment: Testing | 13.2 - 17.0 | EXTERNAL | | | | performed at [facility], [address] | g/dL | LAB | | | | [address], | | | | | | [place] [address] | | | | + + + + + + | Hematocrit, | 40.8Comment: Testing | 39.0 - 50.0 % | EXTERNAL | | | POC | performed at [facility], [address] | | LAB | | | | [address], | | | | | | [place] [address] | | | | + + + + + + | MCV | 83.0Comment: Testing | 80.0 - 100.0 fl | EXTERNAL | | | | performed at [facility], [address] | | LAB | | | | [address], | | | | | | [place] [address] | | | | + + + + + + | MCH | 28.3Comment: Testing | 27.0 - 34.0 pg | EXTERNAL | | | | performed at [facility], [address] | | LAB | | | | [address], | | | | | | [place] [address] | | | | + + + + + + | MCHC | 34.0Comment: Testing | 32.0 - 35.5 | EXTERNAL | | | | performed at [facility], [address] | g/dL | LAB | | | | [address], | | | | | | [place] [address] | | | | + + + + + + | RDW-CV | 42.4Comment: Testing | 37 - 53 fl | EXTERNAL | | | | performed at [facility], [address] | | LAB | | | | [address], | | | | | | [place] [address] | | | | + + + + + + | Platelet | 215Comment: Testing | 150 - 400 K/uL | EXTERNAL | | | Count | performed at [facility], [address] | | LAB | | | Plasma | [address], | | | | | | [place] [address] | | | | + + + + + + | MPV | 8.5Comment: Testing | fl | EXTERNAL | | | | performed at [facility], [address] | | LAB | | | | [address], | | | | | | [place] [address] | | | | + + + + + + | Differentia | AUTOMATEDComment: | | EXTERNAL | | | l Type | Testing performed at | | LAB | | | | [facility], [address] | | | | | | [place] | | | | | | [address] | | | | + + + + + + | % Segmented | 70.19Comment: Testing | % | EXTERNAL | | | | performed at [facility], [address] | | LAB | | | Neutrophils | [address], | | | | | | [place] [address] | | | | + + + + + + | % | 17.93Comment: Testing | % | EXTERNAL | | | Lymphocytes | performed at [facility], [address] | | LAB | | | | [address], | | | | | | [place] [address] | | | | + + + + + + | % Monocytes | 8.97Comment: Testing | % | EXTERNAL | | | | performed at [facility], [address] | | LAB | | | | [address], | | | | | | [place] [address] | | | | + + + + + + | % | 2.27Comment: Testing | % | EXTERNAL | | | Eosinophils | performed at [facility], [address] | | LAB | | | | [address], | | | | | | [place] [address] | | | | + + + + + + | % Basophils | 0.64Comment: Testing | % | EXTERNAL | | | | performed at [facility], [address] | | LAB | | | | [address], | | | | | | [place] [address] | | | | + + + + + + | Absolute | 7.86 (H)Comment: Testing | 1.90 - 7.40 | EXTERNAL | | | Segmented | performed at [facility], [address] | [address] | LAB | | | Neutrophils | [address], | | | | | | [place] [address] | | | | + + + + + + | Absolute | 2.01Comment: Testing | 1.00 - 3.90 | EXTERNAL | | | Lymphocytes | performed at [facility], [address] | K/uL | LAB | | | | [address], | | | | | | [place] [address] | | | | + + + + + + | Absolute | 1.01 (H)Comment: Testing | 0.00 - 0.80 | EXTERNAL | | | Monocytes | performed at [facility], [address] | [address] | LAB | | | | [address], | | | | | | [place] [address] | | | | + + + + + + | Absolute | 0.25Comment: Testing | 0.00 - 0.50 | EXTERNAL | | | Eosinophils | performed at [facility], [address] | K/uL | LAB | | | | [address], | | | | | | [place] [address] | | | | + + + + + + | Absolute | 0.07Comment: Testing | 0.00 - 0.10 | EXTERNAL | | | Basophils | performed at [facility], [address] | K/uL | LAB | | | | [address], | | | | | | [place] [address] | | | | + + + [...] EXTERNAL | | | | performed at [facility], [address] | | LAB | | | | [address], | | | | | | [place] [address] | | | | + + + [...] EXTERNAL | | | | performed at [facility], [address] | | LAB | | | | [address], | | | | | | [place] [address] | | | | + + + [...] | | | | | [place] [address] | | | | + + + + + + | K | 3.9Comment: Testing | 3.5 - 4.9 | EXTERNAL | | | | performed at [facility], [address] | mmol/L | LAB | | | | [address], | | | | | | [place] [address] | | | | + + + + + + | Cl | 103Comment: Testing | 99 - 109 mmol/L | EXTERNAL | | | | performed at [facility], [address] | | LAB | | | | [address], | | | | | | [place] [address] | | | | + + + + + + | CO2 | 25Comment: Testing | 23 - 32 mmol/L | EXTERNAL | | | | performed at [facility], [address] | | LAB | | | | [address], | | | | | | [place] [address] | | | | + + + + + + | Anion Gap | 15Comment: Testing | 5 - 20 mmol/L | EXTERNAL | | | | performed at [facility], [address] | | LAB | | | | [address], | | | | | | [place] [address] | | | | + + + + + + | Glucose, | 132 (H)Comment: Testing | 65 - 99 mg/dL | EXTERNAL | | | Fasting | performed at [facility], [address] | | LAB | | | | [address], | | | | | | [place] [address] | | | | + + + + + + | BUN | 9Comment: Testing | 8 - 25 mg/dL | EXTERNAL | | | | performed at [facility], [address] | | LAB | | | | [address], | | | | | | [place] [address] | | | | + + + + + + | Creatinine | 0.5 (L)Comment: Testing | 0.70 - 1.30 | EXTERNAL | | | | performed at [facility], [address] | mg/dL | LAB | | | | [address], | | | | | | [place] [address] | | | | + + + + + + | BUN/Creatin | 18Comment: Testing | | EXTERNAL | | | ine Ratio | performed at [facility], [address] | | LAB | | | | [address], | | | | | | [place] [address] | | | | + + + + + + | Calcium | 8.4 (L)Comment: Testing | 8.5 - 10.5 | EXTERNAL | | | | performed at [facility], [address] | mg/dL | LAB | | | | [address], | | | | | | [place] [address] | | | | + + + + + + | Protein, | 6.0 (L)Comment: Testing | 6.3 - 8.2 g/dL | EXTERNAL | | | Total | performed at [facility], [address] | | LAB | | | | [address], | | | | | | [place] [address] | | | | + + + + + + | Albumin | 3.0 (L)Comment: Testing | 3.3 - 4.8 g/dL | EXTERNAL | | | | performed at [facility], [address] | | LAB | | | | [address], | | | | | | [place] [address] | | | | + + + + + + | Globulin | 3.0Comment: Testing | 1.3 - 4.9 g/dL | EXTERNAL | | | | performed at [facility], [address] | | LAB | | | | [address], | | | | | | [place] [address] | | | | + + + + + + | A/G Ratio | 1.0Comment: Testing | 1.0 - 2.4 | EXTERNAL | | | | performed at [facility], [address] | | LAB | | | | [address], | | | | | | [place] [address] | | | | + + + + + + | Bilirubin | 1.4Comment: Testing | 0.1 - 1.5 mg/dL | EXTERNAL | | | Total | performed at [facility], [address] | | LAB | | | | [address], | | | | | | [place] [address] | | | | + + + + + + | ALP, | 77Comment: Testing | 35 - 115 U/L | EXTERNAL | | | External | performed at [facility], [address] | | LAB | | | | [address], | | | | | | [place] [address] | | | | + + + + + + | AST | 14Comment: Testing | 10 - 45 U/L | EXTERNAL | | | | performed at [facility], [address] | | LAB | | | | [address], | | | | | | [place] [address] | | | | + + + + + + | ALT | 13Comment: Testing | 10 - 65 U/L | EXTERNAL | | | | performed at [facility], [address] | | LAB | | | | [address], | | | | | | [place] [address] | | | | + + + [...] | | | | | [place] [address] | | | | + + + [...] | | | Fingerstick | performed at [facility];[address] | | LAB | | | | [address];[place] | | | | | | [address] | | | | + + + [...] | | | Fingerstick | performed at [facility];[address] | | LAB | | | | [address];[place], [place] | | | | | | [address] | | | | + + + [...] | | | to suboptimal images. MEASUREMENTS Straight Truck Driver: | | | KVW Authenticated by: Aleksandar [...] due to suboptimal images. MEASUREMENTS | | Straight Truck Driver: ELIZABETHuthenticated by: Aleksandar DotsonReport Date/Time: 05-16-2016 20:59:22 [...] | |MEASUREMENTS | | | | | |Straight Truck Driver: MARILUW | |Authenticated by: Aleksandar Dotson | [...] | | | Fingerstick | performed at [facility];[address] | | LAB | | | | [place];[place] | | | | | | [address] | | | | + + + [...] was also examined | | | with CONWEAVER 3D software for evaluation of the cerebral [...] Conversion - 11/02/2018 6:55 AM PDT REAGAN [id number] years MaleCTA | | HEAD NECK W [...] The data set was also examined with CONWEAVER 3D software for evaluation of the cerebral [...] | | | | [facility], [address] [facility] | | | | | | [place] | | | | | | [address] | | | | + + + + + + | Red Blood | 4.77Comment: Testing | 4.20 - 5.70 | EXTERNAL | | | Cells | performed at [facility], [address] | M/uL | LAB | | | Counted | [facility], | | | | | | [place] [address] | | | | + + + + + + | Hemoglobin | 13.4Comment: Testing | 13.2 - 17.0 | EXTERNAL | | | | performed at [facility], [address] | g/dL | LAB | | | | [address], | | | | | | [place] [address] | | | | + + + + + + | Hematocrit, | 39.1Comment: Testing | 39.0 - 50.0 % | EXTERNAL | | | POC | performed at [facility], [address] | | LAB | | | | [address], | | | | | | [place] [address] | | | | + + + + + + | MCV | 82.0Comment: Testing | 80.0 - 100.0 fl | EXTERNAL | | | | performed at [facility], [address] | | LAB | | | | [address], | | | | | | [place] [address] | | | | + + + + + + | MCH | 28.0Comment: Testing | 27.0 - 34.0 pg | EXTERNAL | | | | performed at [facility], [address] | | LAB | | | | [address], | | | | | | [place] [address] | | | | + + + + + + | MCHC | 34.1Comment: Testing | 32.0 - 35.5 | EXTERNAL | | | | performed at [facility], [address] | g/dL | LAB | | | | [address], | | | | | | [place] [address] | | | | + + + + + + | RDW-CV | 42.9Comment: Testing | 37 - 53 fl | EXTERNAL | | | | performed at [facility], [address] | | LAB | | | | [address], | | | | | | [place] [address] | | | | + + + + + + | Platelet | 238Comment: Testing | 150 - 400 K/uL | EXTERNAL | | | Count | performed at [facility], [address] | | LAB | | | Plasma | [address], | | | | | | [place] [address] | | | | + + + + + + | MPV | 8.8Comment: Testing | fl | EXTERNAL | | | | performed at [facility], [address] | | LAB | | | | [address], | | | | | | [place] [address] | | | | + + + + + + | Differentia | AUTOMATEDComment: | | EXTERNAL | | | l Type | Testing performed at | | LAB | | | | [facility], [address] | | | | | | [place] | | | | | | [address] | | | | + + + + + + | % Segmented | 68.92Comment: Testing | % | EXTERNAL | | | | performed at [facility], [address] | | LAB | | | Neutrophils | [address], | | | | | | [place] [address] | | | | + + + + + + | % | 18.94Comment: Testing | % | EXTERNAL | | | Lymphocytes | performed at [facility], [address] | | LAB | | | | [address], | | | | | | [place] [address] | | | | + + + + + + | % Monocytes | 10.32Comment: Testing | % | EXTERNAL | | | | performed at [facility], [address] | | LAB | | | | [address], | | | | | | [place] [address] | | | | + + + + + + | % | 1.25Comment: Testing | % | EXTERNAL | | | Eosinophils | performed at [facility], [address] | | LAB | | | | [address], | | | | | | [place] [address] | | | | + + + + + + | % Basophils | 0.57Comment: Testing | % | EXTERNAL | | | | performed at [facility], [address] | | LAB | | | | [address], | | | | | | [place] [address] | | | | + + + + + + | Absolute | 8.86 (H)Comment: Testing | 1.90 - 7.40 | EXTERNAL | | | Segmented | performed at [facility], [address] | LAB | | | [address] | [address], | | | | | | [place] [address] | | | | + + + + + + | Absolute | 2.44Comment: Testing | 1.00 - 3.90 | EXTERNAL | | | Lymphocytes | performed at [facility], [address] | [address] | LAB | | | | [address], | | | | | | [place] [address] | | | | + + + + + + | Absolute | 1.33 (H)Comment: Testing | 0.00 - 0.80 | EXTERNAL | | | Monocytes | performed at [facility], [address] | LAB | | | | [address], | | | | | | [place] [address] | | | | + + + + + + | Absolute | 0.16Comment: Testing | 0.00 - 0.50 | EXTERNAL | | | Eosinophils | performed at [facility], [address] | LAB | | | | [address], | | | | | | [place] [address] | | | | + + + + + + | Absolute | 0.07Comment: Testing | 0.00 - 0.10 | EXTERNAL | | | Basophils | performed at [facility], [address] | [address] | LAB | | | | [address], | | | | | | [place] [address] | | | | + + + [...] | | | Fingerstick | performed at [facility] | | [place] | | | | [address];[place], [place] | | | | | | [address] | | | | + + + [...] | | | | | performed at [facility], [address] | | | | | | [address], | | | | | | [place] [address] | | | | + + + [...] W | | | | | | [facility], | | | | | | [place] [address] | | | | + + + [...] | | | | | [place] [address] | | | | + + + + + + | K | 4.2Comment: SPECIMEN | 3.5 - 4.9 | EXTERNAL | | | | SLIGHTLY | mmol/L | LAB | | | | [facility] | | | | | | performed at [facility], [address] | | | | | [address], | | | | | | [place] [address] | | | | + + + + + + | Cl | 104Comment: Testing | 99 - 109 mmol/L | EXTERNAL | | | | performed at [facility], [address] | | LAB | | | | [address], | | | | | | [place] [address] | | | | + + + + + + | CO2 | 25Comment: Testing | 23 - 32 mmol/L | EXTERNAL | | | | performed at [facility], [address] | | LAB | | | | [address], | | | | | | [place] [address] | | | | + + + + + + | Anion Gap | 14Comment: Testing | 5 - 20 mmol/L | EXTERNAL | | | | performed at [facility], [address] | | LAB | | | | [address], | | | | | | [place] [address] | | | | + + + [...] | | | | | [place] [address] | | | | + + + + + + | BUN | 9Comment: Testing | 8 - 25 mg/dL | EXTERNAL | | | | performed at [facility], [address] | | LAB | | | | [address], | | | | | | [place] [address] | | | | + + + + + + | Creatinine | 0.7Comment: SPECIMEN | 0.70 - 1.30 | EXTERNAL | | | | SLIGHTLY | mg/dL | LAB | | | | [facility] | | | | | | performed at [facility], [address] | | | | [address], | | | | | | [place] [address] | | | | + + + + + + | BUN/Creatin | 13Comment: Testing | | EXTERNAL | | | ine Ratio | performed at [facility], [address] | | LAB | | | | [address], | | | | | | [place] [address] | | | | + + + + + + | Calcium | 8.5Comment: Testing | 8.5 - 10.5 | EXTERNAL | | | | performed at [facility], [address] | mg/dL | LAB | | | | [address], | | | | | | [place] [address] | | | | + + + + + + | Protein, | 5.8 (L)Comment: Testing | 6.3 - 8.2 g/dL | EXTERNAL | | | Total | performed at [facility], [address] | | LAB | | | | [address], | | | | | | [place] [address] | | | | + + + + + + | Albumin | 2.8 (L)Comment: Testing | 3.3 - 4.8 g/dL | EXTERNAL | | | | performed at [facility], [address] | | LAB | | | | [address], | | | | | | [place] [address] | | | | + + + + + + | Globulin | 3.0Comment: Testing | 1.3 - 4.9 g/dL | EXTERNAL | | | | performed at [facility], [address] | | LAB | | | | [address], | | | | | | [place] [address] | | | | + + + + + + | A/G Ratio | 0.9 (L)Comment: Testing | 1.0 - 2.4 | EXTERNAL | | | | performed at [facility], [address] | | LAB | | | | [address], | | | | | | [place] [address] | | | | + + + + + + | Bilirubin | 1.7 (H)Comment: SPECIMEN | 0.1 - 1.5 mg/dL | EXTERNAL | | | Total | SLIGHTLY | | LAB | | | | [facility] | | | | | | performed at [facility], [address] | | | | | | [address], | | | | | | [place] [address] | | | | + + + + + + | ALP, | 77Comment: Testing | 35 - 115 U/L | EXTERNAL | | | External | performed at [facility], [address] | | LAB | | | | [address], | | | | | | [place] [address] | | | | + + + + + + | AST | 18Comment: SPECIMEN | 10 - 45 U/L | EXTERNAL | | | | SLIGHTLY | | LAB | | | | [facility] | | | | | | performed at [facility], [address] | | | | | | [address], | | | | | | [place] [address] | | | | + + + + + + | ALT | 15Comment: SPECIMEN | 10 - 65 U/L | EXTERNAL | | | | SLIGHTLY | | LAB | | | | [facility] | | | | | | performed at [facility], [address] | | | | | | [address], | | | | | | [place] [address] | | | | + + + [...] | | | | | [place] [address] | | | | + + + [...] | | | Fingerstick | performed at [facility] | | LAB | | | | [address];[place], [place] | | | | | | [address] | | | | + + + [...] | | | Fingerstick | performed at [facility];[address] | | LAB | | | | [address];[place] | | | | | | [address] | | | | + + + [...] | | | | | [place] [address] | | | | + + + [...] | | | Fingerstick | performed at [facility];[address] | | LAB | | | | [place];[place] | | | | | | [address] | | | | + + + [...] Performed At | + + + | [facility] MRI BRAIN WO AND MRA HEAD 05/15/2016 10:47 AM | | | HISTORY: Stroke. Status post TPA administration. TECHNIQUE: | | | Multiplanar MR imaging was performed through the brain without | | | gadolinium. 3-D cfnv-og-vqoiju MR angiography was also performed to | [...] Johnson, Rad Conversion - 11/02/2018 6:55 AM [facility] BRAIN WO AND MRA | | HEAD05/15/2016 10:47 AM HISTORY:Stroke. Status post TPA administration. | | TECHNIQUE:Multiplanar MR imaging was performed through the brain without gadolinium. 3-D | | kkqm-bd-cnphmm MR angiography was also performed to the [...] | | | Fingerstick | performed at [facility];[address] | | LAB | | | | [place];[place] | | | | | | [address] | | | | + + + [...] | | | Fingerstick | performed at [facility];[address] | | LAB | | | | [place];[place] | | | | | | [address] | | | | + + + [...] | | | Fingerstick | performed at [facility];[address] | | LAB | | | | [address];[place], [place] | | | | | | [address] | | | | + + + [...] | | | Fingerstick | performed at [facility];[address] | | LAB | | | | [place] [place];[place] | | | | | | [address] | | | | + + + [...] | | | | [facility], [address] [facility] | | | | | | [place] | | | | | | [address] | | | | + + + + + + | Red Blood | 5.01Comment: Testing | 4.20 - 5.70 | EXTERNAL | | | Cells | performed at [facility], [address] | M/uL | LAB | | | Counted | [address], | | | | | | [place] [address] | | | | + + + + + + | Hemoglobin | 14.0Comment: Testing | 13.2 - 17.0 | EXTERNAL | | | | performed at [facility], [address] | g/dL | LAB | | | | [address], | | | | | | [place] [address] | | | | + + + + + + | Hematocrit, | 40.8Comment: Testing | 39.0 - 50.0 % | EXTERNAL | | | POC | performed at [facility], [address] | | LAB | | | | [address], | | | | | | [place] [address] | | | | + + + + + + | MCV | 81.5Comment: Testing | 80.0 - 100.0 fl | EXTERNAL | | | | performed at [facility], [address] | | LAB | | | [address], | | | | | | [place] [address] | | | | + + + + + + | MCH | 27.9Comment: Testing | 27.0 - 34.0 pg | EXTERNAL | | | | performed at [facility], [address] | | LAB | | | | [address], | | | | | | [place] [address] | | | | + + + + + + | MCHC | 34.2Comment: Testing | 32.0 - 35.5 | EXTERNAL | | | | performed at [facility], [address] | g/dL | LAB | | | | [address], | | | | | | [place] [address] | | | | + + + + + + | RDW-CV | 42.0Comment: Testing | 37 - 53 fl | EXTERNAL | | | | performed at [facility], [address] | | LAB | | | [address], | | | | | | [place] [address] | | | | + + + + + + | Platelet | 257Comment: Testing | 150 - 400 K/uL | EXTERNAL | | | Count | performed at [facility], [address] | | LAB | | | Plasma | [address] [place], | | | | | | [place] [address] | | | | + + + + + + | MPV | 8.4Comment: Testing | fl | EXTERNAL | | | | performed at [facility], [address] | | LAB | | | | [address], | | | | | | [place] [address] | | | | + + + + + + | Differentia | AUTOMATEDComment: | | EXTERNAL | | | l Type | Testing performed at | | LAB | | | | [facility], [address] | | | | | | [place] | | | | | | [address] | | | | + + + + + + | % Segmented | 72.88Comment: Testing | % | EXTERNAL | | | | performed at [facility], [address] | | LAB | | | Neutrophils | [address], | | | | | | [place], [place] [address] | | | | + + + + + + | % | 17.64Comment: Testing | % | EXTERNAL | | | Lymphocytes | performed at [facility], [address] | | LAB | | | | [address], | | | | | | [place], [place] [address] | | | | + + + + + + | % Monocytes | 8.16Comment: Testing | % | EXTERNAL | | | | performed at [facility], [address] | | LAB | | | | [address], | | | | | | [place] [address] | | | | + + + + + + | % | 1.06Comment: Testing | % | EXTERNAL | | | Eosinophils | performed at [facility], [address] | | LAB | | | | [address], | | | | | | [place] [address] | | | | + + + + + + | % Basophils | 0.26Comment: Testing | % | EXTERNAL | | | | performed at [facility], [address] | | LAB | | | | [address], | | | | | | [place] [address] | | | | + + + + + + | Absolute | 10.84 (H)Comment: | 1.90 - 7.40 | EXTERNAL | | | Segmented | Testing performed at | K/uL | LAB | | | Neutrophils | [facility], [address] | | | | | | [place] | | | | | | [address] | | | | + + + + + + | Absolute | 2.62Comment: Testing | 1.00 - 3.90 | EXTERNAL | | | Lymphocytes | performed at [facility], [address] | K/uL | LAB | | | | [address] [place], | | | | | | [place] [address] | | | | + + + + + + | Absolute | 1.21 (H)Comment: Testing | 0.00 - 0.80 | EXTERNAL | | | Monocytes | performed at [facility], [address] | K/uL | LAB | | | | [address], | | | | | | [place] [address] | | | | + + + + + + | Absolute | 0.16Comment: Testing | 0.00 - 0.50 | EXTERNAL | | | Eosinophils | performed at [facility], [address] | K/uL | LAB | | | | [address], | | | | | | [place] [address] | | | | + + + + + + | Absolute | 0.04Comment: Testing | 0.00 - 0.10 | EXTERNAL | | | Basophils | performed at [facility], [address] | K/uL | LAB | | | | [address], | | | | | | [place] [address] | | | | + + + [...] EXTERNAL | | | | performed at [facility], [address] | | LAB | | | | [address], | | | | | | [place] [address] | | | | + + + [...] EXTERNAL | | | | performed at [facility], [address] | | LAB | | | | [address], | | | | | | [place] [address] | | | | + + + [...] | EXTERNAL | | | A1c | [place] | | LAB | | | [...] | | | | | performed at [facility], [address] | | | | | [address], | | | | | | [place] [address] | | | | + + + [...] | | | | | performed at [facility], [address] | | | | | | [address], | | | | | | [place] [address] | | | | + + + [...] EXTERNAL | | | | performed at [facility], [address] | | LAB | | | | [address], | | | | | | [place] [address] | | | | + + + + + + | Triglycerid | 152 (H)Comment: Testing | mg/dL | EXTERNAL | | | es | performed at [facility], [address] | | LAB | | | | [address], | | | | | | [place] [address] | | | | + + + + + + | HDL | 31 (L)Comment: Testing | mg/dL | EXTERNAL | | | | performed at [facility], [address] | | LAB | | | | [address], | | | | | | [place] [address] | | | | + + + + + + | LDL, | 47Comment: Testing | mg/dL | EXTERNAL | | | Calculated | performed at [facility], [address] | | LAB | | | | [address], | | | | | | [place] [address] | | | | + + + [...] | | | | | [place] [address] | | | | + + + + + + | K | 3.3 (L)Comment: Testing | 3.5 - 4.9 | EXTERNAL | | | | performed at [facility], [address] | mmol/L | LAB | | | | [address], | | | | | | [place] [address] | | | | + + + + + + | Cl | 104Comment: Testing | 99 - 109 mmol/L | EXTERNAL | | | | performed at [facility], [address] | | LAB | | | | [address], | | | | | | [place] [address] | | | | + + + + + + | CO2 | 25Comment: Testing | 23 - 32 mmol/L | EXTERNAL | | | | performed at [facility], [address] | | LAB | | | | [address], | | | | | | [place] [address] | | | | + + + + + + | Anion Gap | 12Comment: Testing | 5 - 20 mmol/L | EXTERNAL | | | | performed at [facility], [address] | | LAB | | | | [address], | | | | | | [place] [address] | | | | + + + + + + | Glucose, | 125 (H)Comment: Testing | 65 - 99 mg/dL | EXTERNAL | | | Fasting | performed at [facility], [address] | | LAB | | | | [address], | | | | | | [place] [address] | | | | + + + + + + | BUN | 11Comment: Testing | 8 - 25 mg/dL | EXTERNAL | | | | performed at [facility], [address] | | LAB | | | | [address], | | | | | | [place] [address] | | | | + + + + + + | Creatinine | 0.7Comment: Testing | 0.70 - 1.30 | EXTERNAL | | | | performed at [facility], [address] | mg/dL | LAB | | | | [address], | | | | | | [place] [address] | | | | + + + + + + | BUN/Creatin | 16Comment: Testing | | EXTERNAL | | | ine Ratio | performed at [facility], [address] | | LAB | | | | [address], | | | | | | [place] [address] | | | | + + + + + + | Calcium | 8.3 (L)Comment: Testing | 8.5 - 10.5 | EXTERNAL | | | | performed at [facility], [address] | mg/dL | LAB | | | | [address], | | | | | | [place] [address] | | | | + + + [...] [address], | | | | | | [place] [address] | | | | + + + [...] | | | Fingerstick | performed at [facility];[address] | | LAB | | | | [address];[place], [place] | | | | | | [address] | | | | + + + [...] | | | Fingerstick | performed at [facility];[address] | | LAB | | | | [address];[place], [place] | | | | | | [address] | | | | + + + [...] | | | Fingerstick | performed at [facility];[address] | | LAB | | | | [address];[place] | | | | | | [address] | | | | + + + [...] | | | Fingerstick | performed at [facility];[address] | | LAB | | | | [address];[place], [place] | | | | | | [address] | | | | + + + [...] | | | Fingerstick | performed at [facility];[address] | | LAB | | | | [address];[place] | | | | | | [address] | | | | + + + [...] | | | Fingerstick | performed at [facility];[address] | | LAB | | | | [address];[place] | | | | | | [address] | | | | + + + [...] | | | Fingerstick | performed at [facility];[address] | | LAB | | | | [address];[place] | | | | | | [address] | | | | + + + [...] | | | Fingerstick | performed at [facility];[address] | | LAB | | | | [address];[place] | | | | | | [address] | | | | + + + [...] | | | Fingerstick | performed at [facility];[address] | | LAB | | | | [address];[place], [place] | | | | | | [address] | | | | + + + [...] | | | Fingerstick | performed at [facility];[address] | | LAB | | | | [address];[place], [place] | | | | | | [address] | | | | + + + [...] | | | Fingerstick | performed at [facility];[address] | | LAB | | | | [address];[place] | | | | | | [address] | | | | + + + [...] | | | Fingerstick | performed at [facility];[address] | | LAB | | | | [address];[place] | | | | | | [address] | | | | + + + [...] | | | Fingerstick | performed at [facility];[address] | | LAB | | | | [address];[place] | | | | | | [address] | | | | + + + [...] | | | Fingerstick | performed at [facility];[address] | | LAB | | | | [address];[place] | | | | | | [address] | | | | + + + [...] | | | Fingerstick | performed at [facility];[address] | | LAB | | | | [place];[place] | | | | | | [address] | | | | + + + [...] | | | Fingerstick | performed at [facility];[address] | | LAB | | | | [address];[place], [place] | | | | | | [address] | | | | + + + [...] | | Jefe: 0.48 m/s TV Dec Richardson: 3.62 m/s2 TV Dec Time: 136.62 | | | ms TV E Jefe: 0.49 m/s TV E/A Ratio: 1.02 Straight Truck Driver: TRINY | | | Authenticated by: Aleksandar Westbrookmunson Report Date/Time: 05-14-2016 | | | 17:14:37 [...] | Index (A-L): 25.78 ml/m2LAAs A2C: 20.06 [id number] A-L A2C: 56.80 mlLAESV MOD A2C: | | 53.98 mlLALs A2C: 6.01 cmLAAs A4C: 18.67 [id number] A-L A4C: 45.70 mlLAESV MOD A4C: | | 43.69 mlLALs A4C: 6.47 cmHR: 94.31 BPMAV maxP.45 mmHgAV meanP.54 | | mmHgAV Vmax: 1.61 m/Abilio Vmean: 1.22 m/Abilio VTI: 27.30 cmAVA Vmax: 2.68 cm2AVA | | (VTI): 2.69 [id number] Vmax: 0.00 cm2/m2AVAI (VTI): 0.00 cm2/m2LVCI Dopp: 3.08 | | [id number] Dopp: 6.31 l/minHR: 85.80 BPMLVOT maxP.48 mmHgLVOT meanP.11 | | mmHgLVSI Dopp: 35.92 ml/m2LVSV Dopp: 73.65 mlLVOT Vmax: 1.36 m/sLVOT Vmean: 0.96 | | m/sLVOT VTI: 23.22 cmMCO: 392.13 msMV A Jefe: 1.50 m/sMV DecT: 213.25 msMV E | | Jefe: 0.88 m/sMV E/A Ratio: 0.59MV PHT: 74.39 msMVA By PHT: 2.95 ke4Zmmmzb e': | | 0.05 m/sSeptal E/e': 14.80RAP: 8 mmHgTV A Jefe: 0.48 m/sTV Dec Richardson: 3.62 m/s2TV | | Dec Time: 136.62 msTV E Jefe: 0.49 m/sTV E/A Ratio: 1.02 Straight Truck Driver: | | GDAuthenticated by: [facility] Date/Time: 05-14-2016 17:14:37 IMPRESSION: 1. | | [...] A Jefe: 0.48 m/s | |TV Dec Richardson: 3.62 m/s2 | |TV Dec Time: 136.62 ms | |TV E Jefe: 0.49 m/s | |TV E/A Ratio: 1.02 | | | |Straight Truck Driver: TRINY | |Authenticated by: Aleksandar Dotson | [...] EXTERNAL LAB | | Testing performed at [address];[place] [address] MRSA PCR | | | NEGATIVE Testing performed at | | | [address];[place] [address] | | + + + + +---------+ [...] | | | Fingerstick | performed at [facility];[address] | | LAB | | | [address];[place], [place] | | | | | | [address] | | | | + + + [...] + + | [facility] Epic environment | EXTERNAL LAB | + [...]
--- OUTSIDE RECORDS SUMMARY | ~2019-08-23 | XMS | Encounter Summary ---
Demographics + + + | Address | [address] | | | [place] [address] | + + + | Home Phone | | + + + | Preferred Language | Unknown | + + + | Marital Status | | + + + | Alevism Affiliation | [id number] | + + + | Race | Unknown | + + + | Ethnic Group | Unknown | + + + Author + + + | Author | [facility] | | | and [place] | + + + | Organization | [facility] | | | and [place] | + + + | Address | Unknown | + + + | Phone | Unavailable | + + + Support + + + + + | Name | Relationship | Address | Phone | + + + + + | Jessica Shepard | ECON | [address] | | | | | [place] | | | | | [address] | | + + + + + | Bel [place] | ECON | Unknown | | + + + + + Care Team Providers + +------+ + | Care Airframe And Powerplant Technician Name | Role | Phone | + +------+ + | Dian Lr NP | PCP | | + +------+ + Encounter Details +--------+ + + + + | Date | Type | Department | Care Team | Description | +--------+ + + + + | 07/31/ | Orders Only | [facility] | Conversion | | | 2019 | | INFECTIOUS DISEASE | Transaction, | | | | | [address] | Provider Unknown | | | | | [place], [place] | | | | | | [address] | (Fax) | | | | | [phone] | | | +--------+ + + + [...] + + + | Red Blood | 5.27 | 10 | EXTERNAL | | | Cells | | | LAB | | | Counted | | | | | + + + + + + | Hemoglobin | 11.1 (A) | 13.5 - 18.0 [...]
--- OUTSIDE RECORDS SUMMARY | ~2019-08-23 | XMS | Encounter Summary ---
Demographics + + + | Address | [address] | | | [place] [address] | + + + | Home Phone [...] + | Jessica Shepard | ECON | [address] | | | | | [place] | | | | | [address] | | + + + + + | Bel Solis | ECON | Unknown | | + + + + + Care Team Providers + +------+ + | Care Title Curator Name | Role | Phone | + +------+ + PCP | Unavailable | + +------+ + Encounter Details +--------+ + + + + | Date | Type | Department | Care Team | Description | +--------+ + + + + | 12/08/ | Hospital | [facility] | | | | 1999 | Encounter | [facility] XRAY [address] | | | | | | [place] | | | | | | [place] [address] | | | | | | [phone] | | | +--------+ + + + [...]
--- OUTSIDE RECORDS SUMMARY | ~2019-08-23 | XMS | Encounter Summary ---
Demographics + + + | Address | [address] | | | [place] [address] | + + + | Home Phone | | + + + | Preferred Language | Unknown | + + + | Marital Status | | + + + | Jewish Affiliation | 1076 | + + + | Race | Unknown | + + + | Ethnic Group | Unknown | + + + Author + + + | Author | [facility] | | | and [place] | + + + | Organization | [facility] | | | and [place] | + + + | Address | Unknown | + + + | Phone | Unavailable | + + + Support + + + + + | Name | Relationship | Address | Phone | + + + + + | Jessica Shepard | ECON | [address] | | | | | [place] | | | | | [address] | | + + + + + | Bel Solis | ECON | Unknown | | + + + + + Care Team Providers + +------+ + | Care Rivet Hammer Machine Operator Name | Role | Phone | + +------+ + | Jamar Manuel MD | PCP | | + +------+ + Reason for Referral Diagnostic/Screening (Routine) +--------+--------+ + + + + | Status | Reason | Specialty | Diagnoses / | Referred By | Referred To | | | | | Procedures | Contact | Contact | +--------+--------+ + + + + | Closed | | Radiology | Diagnoses | Mika Tim, | | | | | | Peripheral | DNP [address] | | | | | | vascular | [address] | | | | | | disease | [place] | | | | | | (HCC) | [facility] | | | | | | Procedures | [address] | | | | | | VAS Lwr Ext | Phone: | | | | | | Art Bilat w | [phone] | | | | | | CINDY Multi | Fax: | | | | | | Lvl | [phone] | | +--------+--------+ + + + + Reason for Visit + + + | Reason | Comments | + + + | Follow-up | | + + + Encounter Details +--------+---------+ + + + | Date | Type | Department | Care Team | Description | +--------+---------+ + + + | 05/21/ | Office | [facility] | Mika Tim, DNP | Peripheral vascular | | 2020 | Visit | VASCULAR SURGERY | [address] | disease (HCC) | | | | [address] [place] | [place], [place] | (Primary Dx); S/P | | | | [place], [place] | [address] | arterial stent; S/P | | | | [address] | | femoral-popliteal | | | | [phone] | | bypass surgery; | | | [...] | | | | | type | +--------+---------+ + + + Social History [...] + + + | Blood Pressure | - | - | | + + + + + | Pulse | - | - | | + + + + + | Temperature | 36.5 C (97.7 F) | 05/22/2019 10:39 AM | | | | | PST | | + + + + + | Respiratory Rate | - | - | | + [...] documented as of this encounter Progress Notes Mika Tim DNP - 05/22/2019 10:30 AM [facility] [address] [place] [address] Office: [phone] DATE OF VISIT: 05/22/2019 PATIENT NAME: Reagan Shepard : 1945; AGE: 74 y.o.; Sex:M PHONE NUMBER: ; ; PROVIDER: Mika Tim DNP PRIMARY CARE / REFERRING PHYSICIAN: No ref. provider found / Jamar Manuel MD / [address] / [place] [id number] REASON FOR EVALUATION / CHIEF COMPLAINT: Vascular Surgery Postoperative Visit for PAD The patient presents today for a Vascular Surgery Postoperative Visit. Reagan Shepard is a 74 y.o. male patient who was diagnosed with peripheral arterial disease with clinical manifestations of bilateral lower extremity non-healing ulcerations. His wounds are located at right heel and left lateral foot. The patient does not ambulate. Mariaelena allen wears foam boot when in bed. He has had the following vascular interventions: 04/11/2019 left leg angiogram with atherectomy of left TP trunk, peroneal artery and ROSSI, ba lloon angioplasty of left SFA, popliteal artery, TP trunk, peroneal artery and ROSSI, stenting of left SFA 04/13/2019 right leg angiogram with crossing right SFA occlusion and atherectomy, however, i t was unsuccessful. He also has high grade stenosis of TP trunk. 04/18/2019 right femoral artery to below knee popliteal artery bypass with great saphenous c ryovein The patient's wounds have been stable. He is staying at [facility] in [place]. Mariaelena allen has not followed up with his state archivist Dr. Ceballos yet. He is taking aspirin and plavix daily. His Hgb A1c was 7.8% on 04/06/2019. VITAL SIGNS: Temp 36.5 C (97.7 F) (Oral) PHYSICAL EXAM: Constitutional: Well nourished, no signs of distress Cardiovascular: Normal rate, regular rhythm. Pulmonary/Chest: No respiratory distress. No adventitious sounds. Abdominal: Soft. No abdominal distension or tenderness. Musculoskeletal: Normal range of motion. Extremities: No cyanosis or clubbing. Neurological: He is alert and oriented. VASCULAR: Palpable femoralpulses were present bilaterally. Dopplerable signals were pre sent in bilateral posterior tibial arteries. Right groin and calf surgical incision wo unds are healing well without signs of infection. Bilateral feet ulcers are shown below. Assessment & Plan: Peripheral arterial disease with status post right femoral to below knee popliteal artery b ypass, left SFA stenting - I've explained to the patient that in the event he experiences acute limb ischemia as evidenced by severe pain or coldness or new lower leg wounds, the pat michellent should contact me immediately to return to my clinic or go to nearby emergency room rig ht away. Wound care instruction sent with patient, monitor for signs of infection. Avoid pre ssure to bilateral feet ulcers. Follow up with state archivist soon. Return to vascular clinic in 1 month for further follow-up with arterial duplex ultrasound for surveillance study. Hypertension - The patient is advised to maintain his antihypertensive medication to keep s ystolic blood pressure target level of 130-140 mm Hg and diastolic blood pressure level of 7 0-80 mm Hg. The patient is advised that uncontrolled hypertension can accelerate atheroscler otic disease progression. Dyslipidemia - The patient is advised to undergo lipid level evaluation with fasting blood test every 6 months with target LDL level of less than 70 mg/dL. The patient is advised to c ontinue taking antiplatelet daily for life to reduce the risk of myocardial infarction and p eripheral arterial disease ( He is currently on aspirin). Additionally, the patient is infor med that hyperlipidemia can accelerate atherosclerotic disease progression and negatively af fect the outcome of lower leg vascular interventions. Diabetic / blood glucose monitoring - The patient is advised to undergo serum glucose level evaluation to ensure that his HgB A1C is less than 7%. Patient is advised regarding the imp ortance of maintaining glucose level within appropriate range as hyperglycemiacan accelerate atherosclerotic disease progression and negatively affect the outcome of vascular intervent ion. Mika Tim DNP documented in this encounte r Plan of Treatment + +---------+--------+ + + | Name | Type | Priori | Associated Diagnoses | Order Schedule | | | | ty | | | + +---------+--------+ + + | VAS Lwr Ext Art | Imaging | Routin | Peripheral | Expected: 06/22/2019 | | Kelechi w CINDY Multi | | e | vascular disease | (Approximate), | | Lvl | | | (HCC) | Expires: 05/21/2020 | + +---------+--------+ + + documented as of this encounter Visit Diagnoses + + | Diagnosis | + + | Peripheral vascular disease (HCC) - Primary Peripheral vascular disease, unspecified | + + | S/P arterial stent | + + | S/P femoral-popliteal bypass surgery Other postprocedural status | + + | Class 1 obesity with serious comorbidity and body mass index (BMI) of 30.0 to 30.9 in | | adult, unspecified obesity type | + + documented in this encounter Additional Health Concerns + + + + | Infection | Noted Time | Resolved Time | + + + + | Methicillin-resistant Staphylococcus aureus | 04/11/2019 2:01 PM | | | | PST | | + + + + documented as of this encounter"
--- OUTSIDE RECORDS SUMMARY | ~2019-08-23 | XMS | Encounter Summary ---
Demographics + + + | Address | [address] | | | [place] [address] | + + + | Home Phone | | + + + | Preferred Language | Unknown | + + + | Marital Status | | + + + | Denominational Affiliation | 1076 | + + + | Race | Unknown | + + + | Ethnic Group | Unknown | + + + Author + + + | Author | [facility] | | | and [place] | + + + | Organization | [facility] | | | and [place] | + + + | Address | Unknown | + + + | Phone | Unavailable | + + + Support + + + + + | Name | Relationship | Address | Phone | + + + + + | Jessica Shepard | ECON | [address] | | | | | [place] | | | | | [address] | | + + + + + | Bel Solis | ECON | Unknown | | + + + + + Care Team Providers + +------+ + | Care Manager In Training Name | Role | Phone | + [...] + + | 06/24/ | Telephone | [facility] | Mika Tim DNP | Consult | | 2019 | | VASCULAR SURGERY | [address] | | | | | [address] [place] | [place], [place] | | | | | [place], [place] | [address] | | | | | [address] | | | | | | [phone] | | | +--------+ + + + [...]
--- OUTSIDE RECORDS SUMMARY | ~2019-08-23 | XMS | Encounter Summary ---
Demographics + + + | Address | [address] | | | [place] [address] | + + + | Home Phone | | + + + | Preferred Language | Unknown | + + + | Marital Status | | + + + | Shinto Affiliation | 1076 | + + + | Race | Unknown | + + + | Ethnic Group | Unknown | + + + Author + + + | Author | [facility] | | | and [place] | + + + | Organization | [facility] | | | and [place] | + + + | Address | Unknown | + + + | Phone | Unavailable | + + + Support + + + + + | Name | Relationship | Address | Phone | + + + + + | Jessica Shepard | ECON | [address] | | | | | [place] | | | | | [address] | | + + + + + | Bel Solis | ECON | Unknown | | + + + + + Care Team Providers + +------+ + | Care Real Estate Administrator Name | Role | Phone | + +------+ + PCP | Unavailable | + +------+ + Encounter Details +--------+ + + + + | Date | Type | Department | Care Team | Description | +--------+ + + + + | 09/14/ | Hospital | [facility] | | | | 2001 | Encounter | MED CTR XRAY [address] | | | | | | [place] | | | | | | [place] [address] | | | | | | [phone] | | | +--------+ + + + [...]
--- OUTSIDE RECORDS SUMMARY | ~2019-08-23 | XMS | Encounter Summary ---
Demographics + + + | Address | [address] | | | [place] [address] | + + + | Home Phone | | + + + | Preferred Language | Unknown | + + + | Marital Status | | + + + | Episcopal Affiliation | 1076 | + + + [...] + | Jessica Shepard | ECON | [address] | | | | | [place] | | | | | [address] | | + + + + + | Bel Solis | ECON | Unknown | | + + + + + Care Team Providers + +------+ + | Care Tunnel Elastic Operator Zigzag Name | Role | Phone | + [...] + + | 05/02/ | Telephone | [facility] | Ely Mcguire | Other (care | | 2020 | | INFECTIOUS DISEASE | Parminder RN | coordination) | | | | [address] | | | | | | [place], [place] | | | | | | [address] | | | | | | [phone] | | | +--------+ + + + [...]
--- OUTSIDE RECORDS SUMMARY | ~2019-08-23 | XMS | Encounter Summary ---
Demographics + + + | Address | [address] | | | [place] [address] | + + + | Home Phone [...] + | Jessica Shepard | ECON | [address] | | | | | [place] | | | | | [address] | | + + + + + | Bel Solis | ECON | Unknown | | + + + + + Care Team Providers + +------+ + | Care Electrician Journeyman Wireman Name | Role | Phone | + +------+ + | Jamar Manuel MD | PCP | | + +------+ + Encounter Details +--------+ + + + + | Date | Type | Department | Care Team | Description | +--------+ + + + + | 05/08/ | Hospital | [facility] | Mika Tim DNP | Peripheral vascular | | 2020 | Encounter | VASCULAR SURGERY | [address] | disease (HCC) | | | | ULTRASOUND [address] | [address] [address] [place], [place] | | | | | [address] | [address] | | | | | [place], [place] | | | | | | [address] | | | | | | [phone] | | | +--------+ + + + [...] tablet by | 30 | 0 | //20 | | | (KLOR-CON) 10 mEq | [...] | VAS LOWER EXTREMITY | Routin | 05/08/2019 | Peripheral | Results for this | | ARTERIES RIGHT | e | 9:05 AM | vascular disease | procedure are in the | | | | PST | ([facility]) | results section. | + +--------+ + + + documented in this encounter Results VAS Lower Extremity Arteries Right (05/08/2019 9:05 AM PST) + + | Specimen | + + | | + + + + + | Impressions | Performed At | + + + | Limited examination given patient positioning and immobility, | [facility] | | otherwise widely patent right femoral popliteal artery bypass graft | | | with single-vessel runoff to the foot via the peroneal artery | | | Signed by: Madison Ford David Sign Date/Time: 05/09/2019 6:58 AM | | | | | + + + + + + | Narrative | Performed At | + + + | VAS LOWER EXTREMITY ARTERIES RIGHT CLINICAL INFORMATION: | [facility] | | Follow up post right fem-pop bypass 04/18/19 COMPARISON: IR | | | ANGIOGRAM LOWER EXTREMITY RIGHT (04/13/2019); VAS LOWER EXTREMITY | | | ARTERIES BILATERAL (04/06/2019); PROCEDURE: Duplex and color | | | Doppler evaluation of the arteries of the right lower extremity | | | including spectral analysis. FINDINGS: Limited examination given | | | patient is nonmobile and wheelchair-bound, unable to transfer to bed | | | for examination. Proximal anastomosis and inflow not visualized due | | | to patient positioning. Peak systolic velocity and waveforms. All | | | velocities in cm/sec. Inflow: Not visualized Proximal | | | anastomosis: Not visualized Graft proximal: 56 Graft mid: 91, 1.6 | | | ratio Graft distal: 27, 0.3 ratio Distal anastomosis: 36, 1.4 ratio | | | Outflow: 42, 1.2 ratio Single-vessel runoff to the ankle via the | | | peroneal artery. Occluded anterior tibial and posterior tibial | | | arteries. Gore Scale Findings: Proximal anastomosis of the common | | | femoral artery. Distal anastomosis in the popliteal. | | + + + + + | Procedure Note | + + | Johnson, Rad Results In 05/09/2019 7:02 AM PST | | VAS LOWER EXTREMITY ARTERIES RIGHT | | | | CLINICAL INFORMATION: | | Follow up post right fem-pop bypass 04/18/19 | | | | COMPARISON: | | IR ANGIOGRAM LOWER EXTREMITY RIGHT (04/13/2019); VAS LOWER EXTREMITY | | ARTERIES BILATERAL (04/06/2019); | | | | PROCEDURE: | | Duplex and color Doppler evaluation of the arteries of the right lower | | extremity including spectral analysis. | | | | FINDINGS: | | Limited examination given patient is nonmobile and wheelchair-bound, | | unable to transfer to bed for examination. Proximal anastomosis and | | inflow not visualized due to patient positioning. | | | | Peak systolic velocity and waveforms. All velocities in cm/sec. | | | | Inflow: Not visualized | | Proximal anastomosis: Not visualized | | Graft proximal: 56 | | Graft mid: 91, 1.6 ratio | | Graft distal: 27, 0.3 ratio | | Distal anastomosis: 36, 1.4 ratio | | Outflow: 42, 1.2 ratio | | | | Single-vessel runoff to the ankle via the peroneal artery. Occluded | | anterior tibial and posterior tibial arteries. | | | | Gore Scale Findings: Proximal anastomosis of the common femoral artery. | | Distal anastomosis in the popliteal. | | | | IMPRESSION: | | Limited examination given patient positioning and immobility, otherwise | | widely patent right femoral popliteal artery bypass graft with | | single-vessel runoff to the foot via the peroneal artery | | | | | | | | Signed by: Madison Ford David | | Sign Date/Time: 05/09/2019 6:58 AM | + + + +---------+ + [...]
--- OUTSIDE RECORDS SUMMARY | ~2019-08-23 | XMS | Encounter Summary ---
Demographics + + + | Address | [address] | | | [place] [address] | + + + | Home Phone | | + + + | Preferred Language | Unknown | + + + | Marital Status | | + + + | Adventist Affiliation | 1076 | + + + | Race | Unknown | + + + | Ethnic Group | Unknown | + + + Author + + + | Author | [facility] | | | and [place] | + + + | Organization | [facility] | | | and [place] | + + + | Address | Unknown | + + + | Phone | Unavailable | + + + Support + + + + + | Name | Relationship | Address | Phone | + + + + + | Jessica Shepard | ECON | [address] | | | | | [place] | | | | | [address] | | + + + + + | Bel Solis | ECON | Unknown | | + + + + + Care Team Providers + +------+ + | Care Stitch Bonder Machine Operator Helper Name | Role | Phone | + +------+ + | Jamar Manuel MD | PCP | | + +------+ + Encounter Details +--------+ + + + + | Date | Type | Department | Care Team | Description | +--------+ + + + + | 04/10/ | Anesthesia | [facility] | Haroldo Ford, | | | 2019 | [facility] | JOURNEYMAN PIPE FITTER [address] | | | | | [address]PER[address] | [place] [address] | | | | | [address] | [phone] | | | | | [place], [place] | | | | | | [address] | Eli Davies, | | | | | [phone] | Gina JOURNEYMAN PIPE FITTER [address] | | | | | | [address] | | | | | | [place] [address] | | | | | | [phone] | | | | | | | | +--------+ + + + + Anesthesia Record + + + + + | Procedure Name | Responsible | Anesthesia Start | Anesthesia Stop Time | | | Anesthesiologist | Time | | + + + + + | CYSTOSCOPY (N/A | Haroldo Ford CRNA | 04/10/191830 | 04/10/191858 | | Perineum) | | | | + + + + + +----+---+ + + | Da | T | Event | Comment | | te | i | | | | | m | | | | | e | | | +----+---+ + + | 01 | 1 | An Start | Reassessment prior to anesthesia induction/procedure. | | /2 | 8 | | | | 1/ | 3 | | | | 20 | 1 | | | | 20 | | | | +----+---+ + + | | 1 | Anesthesia | | | | 8 | Ready | | | | 3 | | | | | 8 | | | +----+---+ + + | | 1 | Pre-Procedu | | | | 8 | ral Timeout | | | | 4 | Completed | | | | 0 | | | +----+---+ + + | | 1 | | | | | 8 | | | | | 4 | | | | | 1 | | | +----+---+ + + | | 1 | First | | | | 8 | Inc/Proc St | | | | 4 | | | | | 1 | | | +----+---+ + + | | 1 | an stop | | | | 8 | data | | | | 5 | | | | | 5 | | | +----+---+ + + | | 1 | An Stop | Patient handed off to recovery nurse. | | | 5 | | | | | 9 | | | +----+---+ + + +------+ | Meds | +------+ + +--------+ | Name | Total | + +--------+ | Plasmalyte | 300 mL | + +--------+ + + | Name | + + | N2O Flow Rate (L/Min) | + + | O2 Flow Rate (L/Min) | + + | Insp O2 | + + | Exp N2O | + + | Exp SEV | + + | Air Flow Rate (L/Min) | + + | Secondary O2 Flow Rate | + + + + | No blood administrations on file. | + + +--------+ + + + | Type | Details | Placement | Removal | +--------+ + + + | Wound | 11/19/17; 1720; Diabetic ulc; | 11/19/17 1720 by Janny | | | | Left; lateral; foot; ulceration, | Janice Jarvis RN | | | | arterial; 1 cm x 3 cm | | | +--------+ + + + | Wound | 11/19/17; 1720; Pressure inj; | 11/19/17 1720 by Janny | | | | Right; heel; Ulcer 4x5 mm | Janice Jarvis RN | | +--------+ + + + | Urethr | 04/06/19; 129 (In place on | 04/06/19129 by | 04/10/191838 by | | al | gume); yes; indicated for | Shawn Cabrera RN | Kindra Holcomb RN | | Zaid | critically ill with need for | | | | er | accurate I/O; 04/10/191838 | | | +--------+ + + + | Periph | 04/06/19; 129; yes; Right; | 04/06/19129 by | 04/13/19 0600 by | | eral | Anterior (palmar); Wrist; | Shawn Cabrera RN | Dhara Mendez RN | | IV | [id number] catheter system; | | | | | 20 gauge; removed inadvertently; | | | | | 04/13/19; 0600 | | | +--------+ + + + | Urethr | 04/10/19; 1846; indicated due to | 04/10/191846 by | 04/14/191648 by | | al | specific surgical procedure | Kindra Holcomb RN | Debby Borjas RN | | Cathet | (continuous bladder irrigation); | | | | er | indwelling triple lumen catheter; | | | | | latex; 20; 1; 04/14/19; 164 | | | +--------+ + + + [...] filedocumented in this encounter Administered Medications + +---------+ +------+------+------+ | Medication Order | MAR | Action | Dose | Rate | Site | | | Action | Date | | | | + +---------+ +------+------+------+ | balanced electrolytes in water | New Bag | 04/10/19 | | | | | (PLASMALYTE-148/NORMOSOL-R) | | 20 6:21 | | | | | infusion Intravenous, CONTINUOUS | | PM PST | | | | | PRN, Starting 04/10/19 at | | | | | | | 1821, Anesthesia Intra-op | | | | | | + +---------+ +------+------+------+ +---+---+ | | | +---+---+ documented in this encounter"
--- OUTSIDE RECORDS SUMMARY | ~2019-08-23 | XMS | Encounter Summary ---
Demographics + + + | Address | [address] | | | [place] [address] | + + + | Home Phone [...] + | Jessica Shepard | ECON | [address] | | | | | [place] | | | | | [address] | | + + + + + | Bel Solis | ECON | Unknown | | + + + + + Care Team Providers + +------+ + | Care Global Marketing Specialist Name | Role | Phone | + +------+ + | Jamar Manuel MD | PCP | | + +------+ + Encounter Details +--------+ + + + + | Date | Type | Department | Care Team | Description | +--------+ + + + + | 05/18/ | Documentati | [facility] | Kelsi, | | | 2020 | on | INFECTIOUS DISEASE | [address] | | | | | [address] | [address] | | | | | [place], [place] | [place] [address] | | | | | [address] | [phone] | | | | | [phone] | | | +--------+ + + + [...] further issues arise over the weekend, ID data center consultant physician will be contacted.Electr onically signed by [...]
--- OUTSIDE RECORDS SUMMARY | ~2019-08-23 | XMS | Encounter Summary ---
Demographics + + + | Address | [address] | | | [place] [address] | + + + | Home Phone | | + + + | Preferred Language | Unknown | + + + | Marital Status | | + + + | Scientology Affiliation | 1076 | + + + | Race | Unknown | + + + | Ethnic Group | Unknown | + + + Author + + + | Author | [facility] | | | and [place] | + + + | Organization | [facility] | | | and [place] | + + + | Address | Unknown | + + + | Phone | Unavailable | + + + Support + + + + + | Name | Relationship | Address | Phone | + + + + + | Jessica Shepard | ECON | [address] | | | | | [place] | | | | | [address] | | + + + + + | Bel Solis | ECON | Unknown | | + + + + + Care Team Providers + +------+ + | Care Lettuce Cutter Name | Role | Phone | + [...] + + | 05/18/ | Telephone | [facility] | Libra Weaver RN | CHF Management (CHF | | 2020 | | [address] | | quality measures) | | | | [place] | | | | | | [address] | | | | | | [phone] | | | +--------+ + + + [...]
--- OUTSIDE RECORDS SUMMARY | ~2019-08-23 | XMS | Encounter Summary ---
Demographics + + + | Address | [address] | | | [place] [address] | + + + | Home Phone [...] + | Jessica Shepard | ECON | [address] | | | | | [place] | | | | | [address] | | + + + + + | Bel Solis | ECON | Unknown | | + + + + + Care Team Providers + +------+ + | Care Respiratory Physician Name | Role | Phone | + [...] +--------+--------+ + + + + Encounter Details +--------+---------+ + + + | Date | Type | Department | Care Team | Description | +--------+---------+ + + + | 11/21/ | Surgery | [facility] | Simone Aceves, | Amputation Right 5th | | 2018 | | MED CTR OR INTRA OP | DPM [address] | Metatarsal | | | | [address] | [place], [place] | | | | | [place], [place] | [address] | | | | | [address] | [phone] | | | | | [phone] | | | +--------+---------+ + + + [...] other anesthesia was used during the case. [facility] lower extremity was then scrubbed, prepped [...] -PT/OT ordered Code Status: Full Code Disposition: [facility] Discharge Condition: Stable, very deconditioned and weak at baseline Pleasant, no distress RRR, no m/r/g CTA bilaterally Soft, obese, NT Ext WWP, right foot ulcer with deep wound, slight purulent drainage Contact information for after-discharge care Placement Destination [facility] . Specialty: [facility] Contact information: [place] [phone] Discharge Medications New Medications Details acetaminophen [...] signed by: Justin Reyna MD, 11/25/2017 13:01 [facility] documented in this encounter Medications [...] Units | 3 mL | 0 | 11/25/ | | | (HUMALOG KWIKPEN) | under [...] might be different f rom the original. [facility] Hospitalist Progress Note Reagan Shepard [...] oz) Intake/Output Summary (Last 24 hours) at 11/24/17 1816 Last data filed at 11/24/17 1300 Gross [...] pantoprazole Mechanical fall -PT/OT ordered Disposition : [facility] as soon as 11/25 Prophylaxis [...] as outlined above. Justin Reyna 11/24/2017 18:16 [facility] Sang Duff MD - 11/24/2017 1:59 PM PDTWe are evaluating the patient for further medical rehabilitatio n services. He does not qualify per CMS guidelines for full inpatient rehab . I recommend he be transferred to SNF for further skilled therapies once he is cleared acute ly. Justin Rodriguez MD - 11/23/2017 2:24 PM PDT [facility]G Hospitalist Progress Note Reagan Shepard [...] as outlined above. Justin Reyna 11/23/2017 14:24 [facility] oSimone mcmullen DPM - 11/23/2017 1:58 PM PDT Foot & Ankle Surgery Progress Note Simone Shepard Age/Gender 72 y.o. male Location [facility] Attending Mil Sandoval MD Hosp [...] Value Units Date/Time Culture, Wound, Smear, w/Anaerobe [[id number]] Collected: 11/21/171207 Order Status: Sent Lab Status: In process Updated: 11/21/171249 Specimen: Tissue from Toe, Fifth/Small, Right Narrative: The following orders were created for panel order Culture, Wound, Smear, w/Anaerobe. Procedure Abnormality Status --------- ------ Culture, Wound, Smear[[id number]] In process Culture, Anaerobic[[id number]] In process Please view results for these tests on the individual orders. Culture, Wound, Smear [[id number]] Collected: 11/21/171207 Order Status: Sent Lab Status: In process Updated: 11/21/17 125 Specimen: Tissue from Toe, Fifth/Small, Right Culture, Anaerobic [[id number]] Collected: 11/21/171207 Order Status: Sent Lab Status: [...] Simone Aceves DPM 13:58; 11/23/2017 Irasema Dominguez, Manager Underwriting - 11/23/2017 9:43 AM PDT PHARMACY SERVICES: [...] strength, and directions X Pharmacy list names: [facility] X [employer] insurance reported information X [...] Prior to Admission Sig: Patient taking differently AUDIT DIRECTOR as: Hydrocodone-acetaminophen 10-325 mg Take one tablet by mouth four times daily as needed fo r pain Patient taking 1 tablet three times daily as a scheduled dose Best possible AUDIT DIRECTOR medication list after pharmacy review: PT REPORTED TAKING NOT TAKING Medication Sig Last Dose Dispense Doc. Provider aspirin 325 mg tablet Take 325 mg by mouth Daily. Taking Historical Provider, atorvaSTATin (LIPITOR) 40 mg tablet Take 40 mg by mouth nightly. Taking Historical Provid er, MD medleyteJermainsenna (SENOKOT-S) 50-8.6 mg per tablet Take 1 [...] mg by mouth Daily. Taking Historical Provid MD jurgen Medication review performed and electronically signed by Blanquita Bertrand, Rail Bender 11/22/2017 8:38 Electronically signed by: Irasema Moyer, Manager Underwriting 11/23/2017 9:43 each, Justin Ferrell MD - 11/22/2017 5:22 PM PDT [facility] Hospitalist Progress Note Reagan Shepard [...] as outlined above. Justin Reyna 11/22/2017 17:40 [facility] Danielle Claire, Road Crew Member - 11/22/2017 2:13 PM PDTFormatting of this note might be different from t kevin original. VANCOMYCIN PER PHARMACY PROTOCOL: AMS/Drug Name - vancomycin, zosyn Patient: Reagan Shepard [id number] Admit: 11/19/2017 13:19 RELEVANT ALLERGIES: none 72 yrs old male patient admitted on 11/19/2017 for sepsis Patient is receiving vancomycin s tarting on 11/19/2017 for bacteremia. 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 No risk factors for MDR organisms. [...] Value Units Date/Time Culture, Wound, Smear, w/Anaerobe [[id number]] Collected: 11/21/17 1208 Order Status: Sent Lab Status: In process Updated: 11/21/17 1250 Specimen: Tissue from Toe, Fifth/Small, Right Narrative: The following orders were created for panel order Culture, Wound, Smear, w/Anaerobe. Procedure Abnormality Status --------- ------ Culture, Wound, Smear[[id number]] Preliminary result Culture, Anaerobic[[id number]] In process Please view results for these tests on the individual orders. Culture, Wound, Smear [[id number]] Collected: 11/21/17 1208 Order Status: Completed Lab Status: Preliminary result Updated: 11/22/17 1021 Specimen: Tissue from Toe, Fifth/Small, Right Culture 2+ Lactose Fermenting Gram Negative Bacilli Comment: Identification and susceptibility to follow. Gram Stain Result 2+ White Blood Cells 1+ Epithelial cells 2+ Gram negative rods Culture, Anaerobic [[id number]] Collected: 11/21/17 1208 Order Status: Sent Lab Status: In process Updated: 11/21/17 1250 Specimen: Tissue from Toe, Fifth/Small, Right Respiratory Virus Panel, NAAT [[id number]] Collected: 11/20/17 1257 Order Status: Completed Lab [...] pneumoniae DNA Not Detected Narrative: Performed at: [address] [place] [address] [id number] Laboratory Phlebotomist: Jurgen Costa MD, Phone: [phone] Culture, Wound, Smear [[id number]] (Susceptibility) Collected: 11/20/17 0825 Order Status: Completed [...] Sulfamethoxazole <=20 ug/mL Sensitive Culture, Wound, Smear [[id number]] (Susceptibility) Collected: 11/19/17 2031 Order Status: Completed Lab Status: Final result [...] no longer reported. Culture, Respiratory, Lower, Smear [[id number]] Order Status: Sent Lab Status: No result Specimen: Body Fluid from Sputum, Expectorated Culture, Wound, Smear [[id number]] Order Status: Canceled Lab Status: No result Specimen: Tissue from Leg, Left Culture, Blood [[id number]] (Normal) Collected: 11/19/17 1537 Order Status: Completed Lab Status: Preliminary result Updated: 11/20/17 0351 Specimen: Blood from Peripheral Blood Culture No growth: Monitored continually by instrument for 5 days Culture, Blood [[id number]] (Normal) Collected: 11/19/17 1506 Order Status: Completed Lab Status: Preliminary result Updated: 11/20/17 0321 Specimen: Blood from Peripheral Blood Culture No growth: Monitored continually by instrument for 5 days Culture, Urine [[id number]] Collected: 11/19/17 1416 Order Status: Completed Lab [...] Monitoring Protocol Electronically signed by: Danielle Guillermo, Road Crew Member 11/22/2017 14:13 Associated attestation - Luther Hampton, PharmD - 11/22/2017 2:26 PM PDTBret Mariella Maylin Hampton rmD 11/22/2017 14:26 Maria De Jesus Contreras RN [...] ELLIOT Romeo who continues care. T easton aiyana for this referral. Electronically signed by: Maria De Jesus Contreras RN 11/22/2017 10:21 Simone Roth DPM - 11/22/2017 8:28 AM PDT . Foot & Ankle Surgery Progress Note Simone Aceves DPSunshine Shepard Age/Gender 72 y.o. male Location [facility] Attending Mil Sandoval MD Hosp [...] Value Units Date/Time Culture, Wound, Smear, w/Anaerobe [[id number]] Collected: 11/21/171207 Order Status: Sent Lab Status: In process Updated: 11/21/17 1250 Specimen: Tissue from Toe, Fifth/Small, Right Narrative: The following orders were created for panel order Culture, Wound, Smear, w/Anaerobe. Procedure Abnormality Status --------- ------ Culture, Wound, Smear[[id number]] In process Culture, Anaerobic[[id number]] In process Please view results for these tests on the individual orders. Culture, Wound, Smear [[id number]] Collected: 11/21/171207 Order Status: Sent Lab Status: In process Updated: 11/21/17 1250 Specimen: Tissue from Toe, Fifth/Small, Right Culture, Anaerobic [[id number]] Collected: 11/21/171207 Order Status: Sent Lab Status: [...] Diabetes mellitus (HCC); Stroke (cerebrum) ([facility]); an d TBI (traumatic brain injury) ([facility]). . No risk factors for MDR [...] - Discontinued Antibiotic Dates of Therapy Zosyn 11/19- Historical Vancomycin dosing (previous & current encounter): none Micro/Cultures/Diagnostics: Microbiology Results (Last 14 Days by Collected Date with Culture/Sensitivity) Procedure Component Value Units Date/Time Culture, Wound, Smear, w/Anaerobe [[id number]] Collected: 11/21/171207 Order Status: Sent Lab Status: In process Updated: 11/21/17 125 Specimen: Tissue from Toe, Fifth/Small, Right Narrative: The following orders were created for panel order Culture, Wound, Smear, w/Anaerobe. Procedure Abnormality Status --------- ------ Culture, Wound, Smear[[id number]] In process Culture, Anaerobic[[id number]] In process Please view results for these tests on the individual orders. Culture, Wound, Smear [[id number]] Collected: 11/21/17 120 Order Status: Sent Lab Status: In process Updated: 11/21/17 125 Specimen: Tissue from Toe, Fifth/Small, Right Culture, Anaerobic [[id number]] Collected: 11/21/17 120 Order Status: Sent Lab Status: In process Updated: 11/21/17 1250 Specimen: Tissue from Toe, Fifth/Small, Right Respiratory Virus Panel, NAAT [[id number]] Collected: 11/20/17 1257 Order Status: Sent Lab Status: In process Updated: 11/20/17 1302 Specimen: Tissue from Nasopharynx Culture, Wound, Smear [[id number]] Collected: 11/20/17 0825 Order Status: Completed Lab Status: Preliminary result Updated: 11/21/17 0739 Specimen: Tissue from Foot, Right Culture 1+ Gram Negative Jayesh, NOT Pseudomonas Comment: Identification and susceptibility to follow. 1+ Gram Positive Cocci Comment: Isolating for additional information. Gram Stain Result 1+ White Blood Cells No organisms seen Culture, Wound, Smear [[id number]] (Susceptibility) Collected: 11/19/17 203 Order Status: Completed [...] <=20 ug/mL Sensitive Culture, Respiratory, Lower, Smear [[id number]] Order Status: Sent Lab Status: No result Specimen: Body Fluid from Sputum, Expectorated Culture, Wound, Smear [[id number]] Order Status: Canceled Lab Status: No result Specimen: Tissue from Leg, Left Culture, Blood [[id number]] (Normal) Collected: 11/19/17 1537 Order Status: Completed Lab Status: Preliminary result Updated: 11/20/17 0351 Specimen: Blood from Peripheral Blood Culture No growth: Monitored continually by instrument for 5 days Culture, Blood [[id number]] (Normal) Collected: 11/19/17 1506 Order Status: Completed Lab Status: Preliminary result Updated: 11/20/17 0321 Specimen: Blood from Peripheral Blood Culture No growth: Monitored continually by instrument for 5 days Culture, Urine [[id number]] Collected: 11/19/17 1416 Order Status: Completed Lab [...] Dosing and Monitoring Protocol Electronically signed by: Kharda Walsh, PharmD 11/21/2017 13:35 Nasim Hoff MD - 11/21/2017 11:05 AM PDT [facility] [place] HOSPITALIST PROGRESS NOTE Patient: Reagan Shepard : 1945: Age: 72 y.o. MedRec: [id number] Admission date: 11/19/2017 Hospital day # : [...] day Mil Sandoval MD 5,000 Units at 11/21/17912 HYDROcodone-acetaminophen (NORCO) 5-325 mg per tablet 1-2 [...] E' Septal Velocity 4.79 cm/s MV Deceleration Carroll 336.24 cm/s2 MV Deceleration Time 332.96 msec [...] Value Units Date/Time Respiratory Virus Panel, NAAT [[id number]] Collected: 11/20/17 1257 Order Status: Sent Lab Status: In process Updated: 11/20/17 1302 Specimen: Tissue from Nasopharynx Culture, Wound, Smear [[id number]] Collected: 11/20/17 0825 Order Status: Completed Lab Status: Preliminary result Updated: 11/21/17 0739 Specimen: Tissue from Foot, Right Culture 1+ Gram Negative Jayesh, NOT Pseudomonas Comment: Identification and susceptibility to follow. 1+ Gram Positive Cocci Comment: Isolating for additional information. Gram Stain Result 1+ White Blood Cells No organisms seen Culture, Wound, Smear [[id number]] (Susceptibility) Collected: 11/19/17 203 Order Status: Completed [...] + Sulfamethoxazole <=20 ug/mL Sensitive Culture, Blood [[id number]] (Normal) Collected: 11/19/17 1537 Order Status: Completed Lab Status: Preliminary result Updated: 11/20/17 0351 Specimen: Blood from Peripheral Blood Culture No growth: Monitored continually by instrument for 5 days Culture, Blood [[id number]] (Normal) Collected: 11/19/17 1506 Order Status: Completed Lab Status: Preliminary result Updated: 11/20/17 0321 Specimen: Blood from Peripheral Blood Culture No growth: Monitored continually by instrument for 5 days Culture, Urine [[id number]] Collected: 11/19/17 1416 Order Status: Completed Lab [...] Other Pharmacy Consult Nasim Jimenez 11/21/2017 11:05 [facility] Nasim Hoff MD - 11/20/2017 10:04 AM PDT [facility] [place] GUTIER[place] HOSPITALIST PROGRESS NOTE Patient: Reagan Shepard : 1945: Age: 72 y.o. MedRec: [id number] Admission date: 11/19/2017 Hospital day # : 1 Physician author: Nasim iJmenez MD Today: 11/20/2017 Allergies: No Known Allergies [...] PH UA 5.0 5.0 - 8.0 Specific [place] 1.017 1.001 - 1.030 PROTEIN UA 30 [...] Component Value Units Date/Time Culture, Wound, Smear [[id number]] Collected: 11/20/17 0825 Order Status: Sent Lab Status: In process Updated: 11/20/17 0829 Specimen: Tissue from Foot, Right Culture, Wound, Smear [[id number]] Collected: 11/19/172030 Order Status: Completed Lab Status: Preliminary result Updated: 11/20/17 09 Specimen: Tissue from Leg, Lower, Right Culture 2+ Gram Negative Jayesh, NOT Pseudomonas Comment: Identification and susceptibility to follow. 1+ Gram Positive Cocci Comment: Isolating for additional information. Gram Stain Result No white blood cells (PMNs) seen 1+ Gram negative rods Culture, Blood [[id number]] (Normal) Collected: 11/19/17 1537 Order Status: Completed Lab Status: Preliminary result Updated: 11/20/17 0351 Specimen: Blood from Peripheral Blood Culture No growth: Monitored continually by instrument for 5 days Culture, Blood [[id number]] (Normal) Collected: 11/19/17 1506 Order Status: Completed Lab Status: Preliminary result Updated: 11/20/17 0321 Specimen: Blood from Peripheral Blood Culture No growth: Monitored continually by instrument for 5 days Culture, Urine [[id number]] (Normal) Collected: 11/19/17 1416 Order Status: Completed [...] Other Pharmacy Consult Nasim Jimenez 11/20/2017 10:05 [facility] ico, Shirley Fuller mD - 11/20/2017 9:10 AM PDT VANCOMYCIN PER PHARMACY PROTOCOL: AMS/Drug Name - vancomycin, zosyn Patient: Reagan Shepard [id number] Admit: 11/19/2017 13:19 RELEVANT ALLERGIES: none 72 yrs old male patient admitted on 11/19/2017 for sepsis Patient is receiving vancomycin s tarting on 11/19/2017 for bacteremia. 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 . No risk factors for MDR organisms. HPI: history of DM, presented with fatigue and slipped wearing socks/falling backwards at h ome w/ left hip/shoulder pain thereafter. No LOC. No dysuria. Fever yesterday, cough with lo ose nonproductive x few days, fatigue and malaise last few days. Chronic right lower alanis wo und care x 1 year per [place]. Antimicrobials - Current Antibiotic Dates of Therapy vancomycin 11/19- zosyn 11/19- Antimicrobials - Discontinued Antibiotic Dates of Therapy Historical Vancomycin dosing (previous & current encounter): none Micro/Cultures/Diagnostics: Microbiology Results (Last 14 Days by Collected Date with Culture/Sensitivity) Procedure Component Value Units Date/Time Culture, Wound, Smear [[id number]] Collected: 11/20/17824 Order Status: Sent Lab Status: In process Updated: 11/20/17828 Specimen: Tissue from Foot, Right Culture, Wound, Smear [[id number]] Collected: 11/19/172030 Order Status: Completed Lab Status: Preliminary result Updated: 11/20/17899 Specimen: Tissue from Leg, Lower, Right Culture 2+ Gram Negative Jayesh, NOT Pseudomonas Comment: Identification and susceptibility to follow. 1+ Gram Positive Cocci Comment: Isolating for additional information. Gram Stain Result No white blood cells (PMNs) seen 1+ Gram negative rods Culture, Respiratory, Lower, Smear [[id number]] Order Status: Sent Lab Status: No result Specimen: Body Fluid from Sputum, Expectorated Culture, Wound, Smear [[id number]] Order Status: Canceled Lab Status: No result Specimen: Tissue from Leg, Left Culture, Blood [[id number]] (Normal) Collected: 11/19/17 1537 Order Status: Completed Lab Status: Preliminary result Updated: 11/20/17 0351 Specimen: Blood from Peripheral Blood Culture No growth: Monitored continually by instrument for 5 days Culture, Blood [[id number]] (Normal) Collected: 11/19/17 1506 Order Status: Completed Lab Status: Preliminary result Updated: 11/20/17 0321 Specimen: Blood from Peripheral Blood Culture No growth: Monitored continually by instrument for 5 days Culture, Urine [[id number]] (Normal) Collected: 11/19/17 1416 Order Status: Completed [...] Monitoring Protocol Electronically signed by: Khadra Walsh, Deneen 11/20/2017 9:10 Kim Leal P harmD - [...] Diabetes mellitus (HCC); Stroke (cerebrum) ([facility]); an d TBI (traumatic brain injury) ([facility]). . No risk factors for MDR [...] Value Units Date/Time Culture, Respiratory, Lower, Smear [[id number]] Order Status: Sent Lab Status: No result Specimen: Body Fluid from Sputum, Expectorated Culture, Wound, Smear [[id number]] Order Status: Sent Lab Status: No result Specimen: Tissue from Leg, Left Culture, Blood [[id number]] Collected: 11/19/17 1537 Order Status: Sent Lab Status: In process Updated: 11/19/17 1543 Specimen: Blood from Peripheral Blood Culture, Blood [[id number]] Collected: 11/19/17 1506 Order Status: Sent Lab Status: In process Updated: 11/19/17 1511 Specimen: Blood from Peripheral Blood Culture, Urine [[id number]] Collected: 11/19/17 1416 Order Status: Sent Lab [...] | | | PDT | ([facility]) | results section. | + +--------+ [...] | | | 11/19/ | | | 2017 | | | [...] | | | FICATI | | | ON? | | | | | | 8 | | | 13:19? | | | HUESTI | | | ES, | | | REAGAN | | | K?MRN: | | | | | | [id number] | | | [id number] | | | his | | | [...] | | | ent/06 | | | [id number] | | | -9b07- | | | [...] | | | St. | | | [place] | | | y H. | | [...] | | | St. | | | [place] | | | y | | | [...] [address] | [place] | [phone] | | [facility] | | [address] | | | - LABORATORY | | [...] + | [facility] | [address] | [place] | [phone] | | [facility] | | [address] | | | - LABORATORY | | [...] + | [facility] | [address] | [place] | [phone] | | [facility] | | [address] | | | - LABORATORY | | [...] | | | FILTRATION | mL/min/1.73m2 | [facility] | | | [place] | RATE,ESTIMATED | | MEDICAL | | | | mL/min/1.22n6Yjdk than | | CENTER - | | [...] + + | Performing | Address | City/State/[facility] | Phone Number | | Organization | | | | + + + + + | [facility]. | [address] | [place] | [phone] | | [facility] | | [address] | | | - LABORATORY | | [...] [facility] | | | | | | . [facility] | | | | | | MEDICAL | | | | | | CENTER - | | | | | | LABORATORY | | + + + + + + | RBC | 4.60 | 4.30 - 5.70 | [facility] | | | | | M/uL | [place] | | | | | [...] | 0.10 | 0.00 - 0.10 | [facility] | | | Basophils | | K/uL | [facility] | | | | | | [...] [address] | [place] | [phone] | | [facility] | | [address] | | | - LABORATORY | | [...] [address] | [place] | [phone] | | [facility] | | [address] | | | - LABORATORY | | [...] [address] | [place] | [phone] | | [facility] | | [address] | | | - LABORATORY | | [...] [address] | [place] | [phone] | | [facility] | | [address] | | | - LABORATORY | | [...] + | [facility] | [address] | [place] | [phone] | | [facility] | | [address] | | | - LABORATORY | | [...] mL/min/1.73m2 | [facility] | | | [place] | RATE,ESTIMATED | | MEDICAL | | | | mL/min/1.56d8Xdam than | | CENTER - | | [...] [address] | [place] | [phone] | | [facility] | | [address] | | | - LABORATORY | | [...] | | | Neutrophils | | | [facility] | | | | | | [...] | | | | | | [facility] | | | | | | MEDICAL [...] | 0.10 | 0.00 - 0.10 | [facility] | | | Basophils | | K/uL | [facility] | | | | | [...] [address] | [place] | [phone] | | [facility] | | [address] | | | - LABORATORY | | [...] + | [facility] | [address] | [place] | [phone] | | [facility] | | [address] | | | - LABORATORY | | [...] [address] | [place] | [phone] | | [facility] | | [address] | | | - LABORATORY | | [...] [address] | [place] | [phone] | | [facility] | | [address] | | | - LABORATORY | | [...] + | [facility] | [address] | [place] | [phone] | | [facility] | | [address] | | | - LABORATORY | | [...] [address] | [place] | [phone] | | [facility] | | [address] | | | - LABORATORY | | [...] mL/min/1.73m2 | [facility] | | | [place] | RATE,ESTIMATED | | MEDICAL | | | | mL/min/1.87a4Jifx than | | CENTER - | | [...] | | ine Ratio | | | [facility] | | [...] [address] | [place] | [phone] | | [facility] | | [address] | | | - LABORATORY | | [...] | | Neutrophils | | K/uL | [facility] | [...] + | [facility] | [address] | [place] | [phone] | | [facility] | | [address] | | | - LABORATORY | | [...] [address] | [place] | [phone] | | [facility] | | [address] | | | - LABORATORY | | [...] [address] | [place] | [phone] | | [facility] | | [address] | | | - LABORATORY | | [...] + | [facility] | [address] | [place] | [phone] | | [facility] | | [address] | | | - LABORATORY | | [...] ST. | [address] | [place] | [phone] | | [facility] | | [address] | | | - LABORATORY | | [...] [address] | [place] [place] | [phone] | | [facility] | | [address] | | | - LABORATORY | | [...] [address] | [place] | [phone] | | [facility] | | [address] | | | - LABORATORY | | [...] | | | | | M/uL | Mariana OSEGUERA | | | | [...] ST. | [address] | [place] | [phone] | | [facility] | | [address] | | | - LABORATORY | | [...] | 1.04 | 0.60 - 1.30 | [facility] | | | | | mg/dL | [facility] | | | | | MEDICAL | | | | | | CENTER - | | | | | | LABORATORY | | + + + + + + | eGFR if not | >60Comment: GLOMERULAR | >=60 | [facility] | | | | FILTRATION | mL/min/1.73m2 | [facility] | | | [place] | RATE,ESTIMATED | | MEDICAL | | | | mL/min/1.46s7Kbek than | | CENTER - | | [...] + | [facility] | [address] | [place] | [phone] | | [facility] | | [address] | | | - LABORATORY | | [...] [address] | [place] | [phone] | | [facility] | | [address] | | | - LABORATORY | | [...] ST. | [address] | [place] | [phone] | | [facility] | | [address] | | | - LABORATORY | | [...] [address] | [place] | [phone] | | [facility] | | [address] | | | - LABORATORY | | [...] [facility] | | | | | | [facility] | | | | | | [...] [address] | [place] | [phone] | | [facility] | | [address] | | | - LABORATORY | | [...] | | | | aerogenesComment: | | . ELY | | | | Consider combination [...] | | | Result | | | . ELY | | | | | | [...] [address] | [place] | [phone] | | [facility] | | [address] | | | - LABORATORY | | [...] [address] | [place] | [phone] | | [facility] | | [address] | | | - LABORATORY | | [...] + | [facility] | [address] | [place], [place] | [phone] | | [facility] | | [address] | | | - LABORATORY | | [...] | | | Morphology | | | STMariana ELY | | [...] + | No immature cells seen | [facility] | | | [facility] | | | [facility] | | | - LABORATORY | + + + + + + + + | Performing | Address | City/State/Zipcode | Phone Number | | Organization | | | | + + + + + | [facility] | [address] | [place] | [phone] | | [facility] | | [address] | | | - LABORATORY | | [...] + | [facility] | [address] | [place] | [phone] | | [facility] | | [address] | | | - LABORATORY | | | | + + + + + Sedimentation Rate (11/21/2017 4:08 AM PDT) + +--------+ + + + | Component | Value | Ref Range | Performed | Pathologist | | | | | At | Signature | + +--------+ + + + | Erythrocyte | 67 (H) | <20 mm/hr | [facility] | | | | | | STM[facility]a [place] | | | Sedimentati | | | [...] [address] | [place] | [phone] | | [facility] | | [address] | | | - LABORATORY | | | | + + + + + C-Reactive Protein (11/21/2017 4:08 AM PDT) + + + + + + | Component | Value | Ref Range | Performed | Pathologist | | | | | At | Signature | + + + + + + | CRP | 165.00 (H) | <8.00 mg/L | [facility] | [...] [address] | [place] | [phone] | | [facility] | | [address] | | | - LABORATORY | | | | + + + + + Magnesium (11/21/2017 4:08 AM PDT) + +---------+ + + + | Component | Value | Ref Range | Performed | Pathologist | | | | | At | Signature | + +---------+ + + + | Magnesium | 1.7 (L) | 1.8 - 2.5 mg/dL | [facility] | | | | [...] [address] | [place] | [phone] | | [facility] | | [address] | | | - LABORATORY | | [...] | | Neutrophils | | K/uL | STMariana OSEGUERA | [...] + | [facility] | [address] | [place] | [phone] | | [facility] | | [address] | | | - LABORATORY | | [...] | mL/min/1.73m2 | [facility] | | | [place] | RATE,ESTIMATED | | MEDICAL | | | | mL/min/1.84r2Xevj than | | CENTER - | | [...] | ine Ratio | | | . ELY | | | | | | [...] [address] | [place] | [phone] | | [facility] | | [address] | | | - LABORATORY | | [...] [address] | [place] | [phone] | | [facility] | | [address] | | | - LABORATORY | | [...] [address] | [place] | [phone] | | [facility] | | [address] | | | - LABORATORY | | [...] | | chronic inflammation suggestive of osteomyelitis. JVR:[facility] [place]:C2NR | | | MICROSCOPIC EXAMINATION: Histologic sections [...] decalcified in decal | | | STAT).. am:AMB:tenet [place] PERFORMING LABORATORY: The technical | | | component was performed by [facility], [address] [facility], | | | [facility] [address] (Progressive Die Maker: Khadra Gill MD; CLIA# | | | [id number]). Professional interpretation was performed by [facility] | | | [facility], [facility], [address] [place] [address] (Progressive Die Maker: Ambrosio | | | Madison Hall). Diagnostician: Ambrosio Hall MD | | | Pathologist Electronically Signed 11/23/2017 | | + + + + +---------+ + + | Performing | Address | City/State/Zipcode | Phone Number | | Organization | | | | + +---------+ + + | [place] [facility] | | | | | [facility] | | | | + +---------+ + [...] + | [facility] | [address] | [place] | [phone] | | [facility] | | [address] | | | - LABORATORY | | [...] | | | | | | [place] | | | | | + +---------+ [...] + | [facility] | [address] | [place] | [phone] | | [facility] | | [address] | | | - LABORATORY | | [...] + + | Performed at: 01 - [facility] [address], | REFERENCE LAB | | [place], [place] [id number] Laboratory Phlebotomist: Jurgen Costa MD, Phone: | [facility] | | [phone] | | + + + + + + + + | Performing | Address | City/State/Zipcode | Phone Number | | Organization | | | | + + + + + | REFERENCE LAB | [address] | [place], [place] | [phone] | | [facility] | [place]inne Vargas | [address] | | + + + + + [...] + | [facility] | [address] | [place] | [phone] | | [facility] | | [address] | | | - LABORATORY | | | | + + + + + Sedimentation Rate (11/20/2017 11:35 AM PDT) + +--------+ + + + | Component | Value | Ref Range | Performed | Pathologist | | | | | At | Signature | + +--------+ + + + | Erythrocyte | 59 (H) | <20 mm/hr | [facility] | | | | | | STMariana [address] | [place] | [phone] | | [facility] | | [address] | | | - LABORATORY | | | | + + + + + C-Reactive Protein (11/20/2017 11:35 AM PDT) + + + + + + | Component | Value | Ref Range | Performed | Pathologist | | | | | At | Signature | + + + + + + | CRP | 185.35 (H) | <8.00 mg/L | MICHAEL[facility] | [...] [address] | [place] | [phone] | | [facility] | | [address] | | | - LABORATORY | | [...] [address] | [place] | [phone] | | [facility] | | [address] | | | - LABORATORY | | [...] [address] | [place] | [phone] | | [facility] | | [address] | | | - LABORATORY | | [...] [address] | [place] | [phone] | | [facility] | | [address] | | | - LABORATORY | | | | + + + + + B Type Natriuretic Peptide (11/20/2017 4:45 AM PDT) + +---------+ + + + | Component | Value | Ref Range | Performed | Pathologist | | | | | At | Signature | + +---------+ + + + | BNP | 101 (H) | <100 pg/mL | [facility] | | | | | [...] [address] | [place] | [phone] | | [facility] | | [address] | | | - LABORATORY | | | | + + + + + Magnesium (11/20/2017 4:45 AM PDT) + +-------+ + + + | Component | Value | Ref Range | Performed | Pathologist | | | | | At | Signature | + +-------+ + + + | Magnesium | 1.8 | 1.8 - 2.5 mg/dL | [facility] [...] [address] | [place] | [phone] | | [facility] | | [address] | | | - LABORATORY | | [...] + | [facility] | [address] | [place] | [phone] | | [facility] | | [address] | | | - LABORATORY | | [...] | mL/min/1.73m2 | [facility] | | | [place] | RATE,ESTIMATED | | MEDICAL | | | | mL/min/1.40c1Roim than | | CENTER - | | [...] | | | | | mg/dL | [facility] | | | | | | MEDICAL | | | | | | CENTER - | | | | | | LABORATORY | | + + + + + + | BUN/Creatin | 16.5 | | [facility] | | | ine Ratio | | | [facility] | | | [...] [address] | [place] | [phone] | | [facility] | | [address] | | | - LABORATORY | | [...] + | [facility] | [address] | [place], [place] | [phone] | | [facility] | | [address] | | | - LABORATORY | | [...] | | POC | | | STMariana [facility] | | | | | | [...] [address] | [place] | [phone] | | [facility] | | [address] | | | - LABORATORY | | [...] | | | aerogenesComment: | | [facility] | | | | Consider combination | [...] [facility] | | | | | | [facility] | | | | | | MEDICAL | | | | | | CENTER - | | | | | | LABORATORY | | + + + + + + | Gram Stain | No white blood cells | | [facility] | | | Result | (PMNs) seen | | Mariana [facility] | | | [...] + | [facility] | [address] | [place] | [phone] | | [facility] | | [address] | | | - LABORATORY | | [...] [address] | [place] | [phone] | | [facility] | | [address] | | | - LABORATORY | | [...] + | [facility] | [address] | [place] | [phone] | | [facility] | | [address] | | | - LABORATORY | | [...] + | [facility] | [address] | [place] | [phone] | | [facility] | | [address] | | | - LABORATORY | | [...] ST. | [address] | [place], [place] | [phone] | | [facility] | | [address] | | | - LABORATORY | | [...] + | [facility] | [address] | [place] | [phone] | | [facility] | | [address] | | | - LABORATORY | | [...] mL/min/1.73m2 | [facility] | | | [place] | RATE,ESTIMATED | | MEDICAL | | | | mL/min/1.29f7Cgwp than | | CENTER - | | [...] | | | | | mg/dL | [facility] | | | | | [...] ST. | [address] | [place], [place] | [phone] | | [facility] | | [address] | | | - LABORATORY | | [...] | Basophils | | K/uL | STMariana [facility] | | | | [...] [address] | [place] | [phone] | | [facility] | | [address] | | | - LABORATORY | | [...] overload. Dictated and Signed by: Rico Santiago | | | Electronically signed: 11/19/2017 4:17 PM | | [...] | REFERENCE | | | | of [place] Pathologists | | LAB [facility] | | | | standards require a | | - BKR | | | | culture to beperformed | | | | | | on CSF specimens | | | | | | submitted for bacterial | | | | | | antigen testing.(CAP | | | | | | [id number]) Urine | | | | | | specimens will not be | | | | | | cultured. | | | | + + + + + + + + | Specimen | + + | Urine | + + + + + | Narrative | Performed At | + + + | Performed at: 01 - [facility] [address] [facility], | REFERENCE LAB | | [place], [place] [address] Laboratory Phlebotomist: Christ Deal MD, Phone: | [facility] | | [phone] | | + + + + + + + + | Performing | Address | City/State/Zipcode | Phone Number | | Organization | | | | + + + + + | REFERENCE LAB | [address] | [place], [place] | [phone] | | [facility] | [facility] | [address] | | + + + + + [...] + | [facility] | [address] | [place] | [phone] | | [facility] | | [address] | | | - LABORATORY | | [...] - 1.030 | [facility] | | | [place], | | | [facility]. [facility] | | [...] [address] | [place] | [phone] | | [facility] | | [address] | | | - LABORATORY | | | | + + + + + documented in this encounter Visit Diagnoses Not on filedocumented in this encounter Administered Medications + +--------+---------+------+------+------+ [...] 3:09 | | | | | on 11/25/17 at 1315 | | PM PDT | [...] | +---+---+ + +-------+ +--------+---+ + | bupivacaine (MARCAINE) 0.25% | Given | 11/22/19 | 20 mLs | | Surgical | | injection PRN, Starting Mon | | 18 12:07 | | | Site | | 11/21/17 at 1207, Intra-op | | PM PDT | | | | + +-------+ +--------+---+ + + +---+ | | [...] | | | at 1745, Hold for , | | | | | | + [...] | | | | | | use Ackworth 10/325 if ordered. If | | | [...] | | | | last modification) on Digna 11/24/17 | | | | [...] scheduled: AC, NPO, Daytime | | | 2530-4684 Use NIGHT DOSE for | | | doses scheduled: HS, 3AM, | | | Nighttime 5541-5454, | | + +---+ | | | [...] | | | MEALS, First dose on [facility] 11/24/17 | | | | | | | at 0800 | | | | | | + +-------+ +---------+---+ + +-------+ +---------+---+ + | Given | 11/26/19 | 8 Units | | Abdomen- | | | 18 9:04 | | | LUQ | | | AM PDT | | | | +-------+ +---------+---+ + | Given | 09/06/20 | 8 Units | | Abdomen- | [...] +---+---+---+ +---+---+ | | | +---+---+ + +-------+ [...] +-------+ +---+---+---+ +---+---+ | | | +---+---+ documented in this encounter
--- OUTSIDE RECORDS SUMMARY | ~2019-08-23 | XMS | Clinical Summary ---
Demographics + + + | Address | [address] | | | [place] [address] | + + + | Home Phone | | + + + | Preferred Language | Unknown | + + + | Marital Status | | + + + | Scientologist Affiliation | 1076 | + + + [...] + | Jessica Shepard | ECON | [address] | | | | | [place] | | | | | [address] | | + + + + + | Bel Solis | ECON | Unknown | | + + + + + Care Team Providers + +------+ + | Care Health Benefits Specialist Name | Role | Phone | [...] automatically from request for surgery | | [id number] | + + + + + | Acute osteomyelitis of calcaneum, right | 07/14/2018 | + + + | Essential hypertension | 11/25/2017 | + + + | Insulin dependent diabetes mellitus | 11/22/2017 | + + + + + | Overview: Problem List Teletypesetter Monitor Utility | + + + + + [...] + + + | Overview: Problem List Teletypesetter Monitor Utility | + + + + + [...] Coordination | | 2019 | | | Service Parts Coordinator | (EOT??); Other (picc | | | | | | d/c) | +--------+ + + + + | 05/22/ | Documentati | Infectious Diseases | Nimo Westbrook, | Other (*Labs from | 2019 | on | | Service Parts Coordinator | [facility] DOS | | | | | | 05/21/2019 | | | | | | (CBC,CMP,ESR,CRP,VAN | | | | | | CO TROUGH)) | +--------+ + + + + from [...] Vasc Epic | | | [facility] | [id number] | 10/14/ | [id number] | | [id number]: | | | SCIENTIFIC | [id number] | 2023 | [id number] | | Qty: 1 on 04/11/2019 by Prosper, | | | CHRISTIANO - BSCI | 80 | | 220 / | | [place] | | | | | | /[id number] | | | | | | | | 748 | + +------+--------+ +--------+--------+--------+ | Algrft Cv Saph Vein 80-100cm | | Right: | LEMAITRE | | 09/14/ | [id number] | | - | | Leg | VASCULAR | | 2023 | /[id number] | | [id number] | | | INC - MOE | | | [id number] | | ed: Qty: 1 on 04/18/2019 by | | | | | | [id number] | | Gianluca Robbins MD at [facility] | | | | | | 3002 | | [facility] | | | | | | /NA | | CENTER | | | | | | | + +------+--------+ +--------+--------+--------+ Results Not on filefrom Last 3 Months Additional Health Concerns + [...] +--------+ +---------+--------+ | MEDICARE | MEDICA | [id number] | | [phone] | | Medica | | | RE | | 012-Pr | 5 | | re | | | PART A | | esent | | | | | | AND B | | | | | | + +--------+ +--------+ +---------+--------+ | VETERANS ADMIN | VETERA | [id number] | | | | Indemn | | | NS | | 018-Pr | | | ity | | | ADMIN | | esent | | | | | | [place] | | | | | | | | [place] | | | | | | + +--------+ +--------+ +---------+--------+ | MEDICARE | MEDICA | [id number] | | [phone] | | Medica | | | RE | | 012-Pr | 5 | | re | | | PART A | | esent | | | | | | AND B | | | | | | + +--------+ +--------+ +---------+--------+ | MEDICARE | MEDICA | [id number] | | [phone] | | Medica | | | RE | | 012-Pr | 5 | | re | | | PART A | | esent | | | | | | AND B | | | | | | + +--------+ +--------+ +---------+--------+ | | TRICAR | [id number] | | [phone] | | Indemn | | | E [...] Person | Self | [birth year] | | [address] | | | al/Fam | | 1945 | [phone] | [place] , [place] | | | [place]los | | | 2 ([place]) | [address] | + +--------+ +--------+ + + | Reagan Shepard | Person | Self | [birth year] | | [address] | | | al/Fam | | 1945 | [phone] | [place] | | | [place] | | | 2 (Home) | [address] | + +--------+ +--------+ + + | Reagan Shepard | Person | Self | [birth year] | | [address] | | | al/Fam | | 1945 | [phone] | [place] | | | [place]los | | | 2 ([place]) | [address] | + +--------+ +--------+ + + Advance Directives + + + + + | Type | Date Recorded | Patient | Explanation | | | | Veterinary Medicine Teacher | | + + + + + | Power of | | | | | Hospital Pharmacy Director | | | | + + + [...]
--- OUTSIDE RECORDS SUMMARY | ~2019-08-23 | XMS | Clinical Summary ---
Demographics + + + | Address | [address] | | | [place] [address] | + + + | Home Phone | | + + + | Preferred Language | Unknown | + + + | Marital Status | | + + + | Pentecostalism Affiliation | 1076 | + + + | Race | Unknown | + + + | Ethnic Group | Unknown | + + + Author + + + | Author | [facility] | | | and [place] | + + + | Organization | [facility] | | | and [place] | + + + | Address | Unknown | + + + | Phone | Unavailable | + + + Support + + + + + | Name | Relationship | Address | Phone | + + + + + | Jessica Shepard | ECON | [address] | | | | | [place] | | | | | [address] | | + + + + + | Bel Solis | ECON | Unknown | | + + + + + Care Team Providers + +------+ + | Care Brickmason Helper Name | Role | Phone | [...] automatically from request for surgery | | [id number] | + + + + + | Acute osteomyelitis of calcaneum, right | 07/14/2018 | + + + | Essential hypertension | 11/25/2017 | + + + | Insulin dependent diabetes mellitus | 11/22/2017 | + + + + + | Overview: Problem List Shower Doors And Panels Fabricator Utility | + + + + + [...] + + + | Overview: Problem List Shower Doors And Panels Fabricator Utility | + + + + + [...] Coordination | | 2019 | | | Screen Making Technician | (EOT??); Other (picc | | | | | | d/c) | +--------+ + + + + | 05/22/ | Documentati | Infectious Diseases | Nimo Westbrook, | Other (*Labs from | 2019 | on | | Screen Making Technician | [facility] DOS | | | [...] Vasc Epic | | | [place] | [id number] | 10/14/ | [id number] | | [id number]: | | | SCIENTIFIC | [id number] | 2023 | [id number] | | Qty: 1 on 04/11/2019 by Prosper, | | | CHRISTAINO - BSCI | 80 | | 220 / | | [place] | | | | | | /[id number] | | | | | | | | 748 | + +------+--------+ +--------+--------+--------+ | Algrft Cv Saph Vein 80-100cm | | Right: | LEMAITRE | | 09/14/ | [id number] | | - | | Leg | VASCULAR | | 2023 | /[id number] | | [id number] | | | INC - MOE | | | [id number] | | ed: Qty: 1 on 04/18/2019 by | | | | | | [id number] | | Gianluca Robbins MD at [facility] | | | | | | 3002 | | [facility] | | | | | | [...] +--------+ +---------+--------+ | MEDICARE | MEDICA | [id number] | | [phone] | | Medica | | | RE | | 012-Pr | 5 | | re | | | PART A | | esent | | | | | | AND B | | | | | | + +--------+ +--------+ +---------+--------+ | VETERANS ADMIN | VETERA | [id number] | | | | Indemn | | | NS | | 018-Pr | | | ity | | | ADMIN | | esent | | | | | | [place] | | | | | | | | [place] | | | | | | + +--------+ +--------+ +---------+--------+ | MEDICARE | MEDICA | [id number] | | [phone] | | Medica | | | RE | | 012-Pr | 5 | | re | | | PART A | | esent | | | | | | AND B | | | | | | + +--------+ +--------+ +---------+--------+ | MEDICARE | MEDICA | [id number] | | [phone] | | Medica | | | RE | | 012-Pr | 5 | | re | | | PART A | | esent | | | | | | AND B | | | | | | + +--------+ +--------+ +---------+--------+ | | TRICAR | [id number] | | [phone] | | Indemn | [...] Person | Self | [birth year] | | [address] | | | al/Fam | | 1945 | [phone] | [place] , [place] | | | carlos | | | 2 ([place]) | [address] | + +--------+ +--------+ + + | Reagan Shepard | Person | Self | [birth year] | | [address] | | | al/Fam | | 1945 | [phone] | [place] , [place] | | | carlos | | | 2 (Home) | [address] | + +--------+ +--------+ + + | Reagan Shepard | Person | Self | [birth year] | | [address] | | | al/Fam | | 1945 | [phone] | [place] , [place] | | | carlos | | | 2 ([place]) | [address] | + +--------+ +--------+ + + Advance Directives + + + + + | Type | Date Recorded | Patient | Explanation | | | | Supervisor Abattoir | | + + + + + | Power of | | | | | Military Logistics Specialist | | | | + + + [...]
--- OUTSIDE RECORDS SUMMARY | ~2019-08-23 | XMS | Encounter Summary ---
Demographics + + + | Address | [address] | | | [place] [address] | + + + | Home Phone [...] + | Jessica Shepard | ECON | [address] | | | | | [place] | | | | | [address] | | + + + + + | Bel Solis | ECON | Unknown | | + + + + + Care Team Providers + +------+ + | Care Holder Pile Driving Name | Role | Phone | + +------+ + | Dian Lr NP | PCP | | + +------+ + Encounter Details +--------+ + + + + | Date | Type | Department | Care Team | Description | +--------+ + + + + | 11/26/ | Hospital | [facility] | Diana Toby | | | 2018 | Encounter | MED CTR XRAY [address] | MD [address] | | | | | [place] | [facility] | | | | | [place] [address] | [place] [address] | | | | | [phone] | [phone] | | | | | | | [...]
--- OUTSIDE RECORDS SUMMARY | ~2019-08-23 | XMS | Encounter Summary ---
Demographics + + + | Address | [address] | | | [place] [address] | + + + | Home Phone | | + + + | Preferred Language | Unknown | + + + | Marital Status | | + + + | Voodoo Affiliation | 1076 | + + + | Race | Unknown | + + + | Ethnic Group | Unknown | + + + Author + + + | Author | [facility] | | | and [place] | + + + | Organization | [facility] | | | and [place] | + + + | Address | Unknown | + + + | Phone | Unavailable | + + + Support + + + + + | Name | Relationship | Address | Phone | + + + + + | Jessica Shepard | ECON | [address] | | | | | [place] | | | | | [address] | | + + + + + | Bel Solis | ECON | Unknown | | + + + + + Care Team Providers + +------+ + | Care Flight Test Data Acquisition Technician Name | Role | Phone | [...] + + | 04/25/ | Documentati | [facility] | Dylan Gaston, | Results (CBC, CMP, | | 2020 | on | INFECTIOUS DISEASE | Hero Malave MD | ESR, CRP, Vanco | | | | [address] | [address] | [place]) | | | | [place], [place] | [place] [address] | | | | | [address] | [phone] | | | | | [phone] | | | +--------+ + + + [...] of this encounter Progress Notes Kady Westbrook, Gauge And Weigh Machine Adjuster - 04/25/2019 1:18 PM PSTReceived lab results [...] + + | REFERENCE LAB | [address] [facility] | [place], [place] | [phone] | | [facility] | | [address] | | + + + + + [...] + + | REFERENCE LAB | [address] [facility] | [place], [place] | [phone] | | [facility] | | [address] | | + + + + + [...] + + + | REFERENCE LAB | [address] [facility] | [place] | [phone] | | [facility] | | [address] | | + + + + + [...] + + | REFERENCE LAB | [address] [facility] | [place] | [phone] | | [facility] | | [address] | | + + + + + [...] + + + | REFERENCE LAB | [address] [facility] | [place] | [phone] | | [facility] | | [address] | | + + + + + [...]
--- OUTSIDE RECORDS SUMMARY | ~2019-08-23 | XMS | Encounter Summary ---
Demographics + + + | Address | [address] | | | [place] [address] | + + + | Home Phone | | + + + | Preferred Language | Unknown | + + + | Marital Status | | + + + | [employer] Affiliation | [id number] | + + + [...] + | Jessica Shepard | ECON | [address] | | | | | [place] | | | | | [address] | | + + + + + | Bel Solis | ECON | Unknown | | + + + + + Care Team Providers + +------+ + | Care Telephone Lines Repairer Name | Role | Phone | + +------+ + | Jamar Manuel MD | PCP | | + +------+ + Encounter Details +--------+ + + + + | Date | Type | Department | Care Team | Description | +--------+ + + + + | 04/06/ | Hospital | [facility] | Jagdish Jimenez DO | Insulin dependent | | 2020 - | Encounter | [facility] | [address] | diabetes mellitus | | | | [address] | [place] [address] | ([facility]) (Primary Dx); | | 04/21/ | | [place], [place] | [phone] | Peripheral vascular | | 2020 | | [address] | | disease ([facility]); Other | | | | [phone] | Ady Yin MD | osteomyelitis of | | | | | [address] | right foot ([facility]); | | | | | [place] [address] | Essential | | | | | [phone] | hypertension; Acute | | | | | | left hemiparesis | | | | | Grover Charles MD | ([facility]); Other | | | | | [address] | osteomyelitis of | | | | | [place] [address] | right foot ([facility]); | | | | | [phone] | Chronic | | | | | | osteomyelitis ([facility]); | | | | | Scooter Davies MD | Acute osteomyelitis | | | | | [address] | of right calcaneus | | | | | [place] | ([facility]); Osteomyelitis | | | | | [address] | of metatarsal | | | | | | ([facility]); 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 The patient was admitted to regular medical floor and started on optimal medical management . On-call clinical specialist medical device (Dr. Ruelas) recommended continued medical management. Patient [...] inferior defect with partial improvement at rest partner management consultant was i nformed by hospitalist colleague recommended [...] their primary care provider within 1 w burns paiute after discharge, follow-up with ID in 2 weeks after discharge, follow-up with vascular s minnie as per their recommendations or otherwise within 2 weeks after discharge. The patien t will need to follow-up with his outpatient clinical specialist medical device within 1 to 2 weeks after discharg [...] Results Results Reviewed. Discharge Information: Follow up: [address] [address] Bhanu Seaman PA-C [address] [place] [phone] In 2 weeks [place] [address] Schedule an appointment as soon as possible for a visit in 1 week Hero Gaston MD [address] [facility] [phone] Schedule an appointment as soon as possible for a visit in 2 weeks Post hospital discharge follow-up Dr. New Ruelas [address] [facility] [phone] Schedule an appointment as soon as possible [...] mg per tablet aka: NORCO . Disposition: group home Condition: Stable Code Status: Full Code Discharge [...] numbness Complications from anesthesia Date Last Reviewed: 08/20/201519993840-4949 [employer]. [address] [place] [address], [place] [address]. All righ ts reserved. This information is [...] Wakefield PA-C - 04/21/2019 8:21 AM PST [facility] Service: Vascular Surgery Progress Note SUBJECTIVE Patient Summary: 74 y.o. man with complex medical issues and LE ischemic ulcers, he wa s recently admitted to the [facility] from 03/28/19 to 04/04/19 where he was treated/ diagnosed with systolic heart failure, type 2 MD/NSTEMI, SHAE, ARF. O2 desaturation brought him from SNF to [facility] [place] [place] and current admission today with CHF and [...] code Bhanu Seaman PA-C Vascular Surgery Regla rCum RN - 04/21/2019 6:20 AM PSTHydrocodone x [...] Holliday RN - 04/20/2019 4:40 PM PST [facility] Service: Wound Care Follow Up Note Hospital [...] Primary Wound Type: Diabetic Ulcer Side: Left [place] ation: lateral Location: foot Wound Subtype: ulceration, [...] M D - 04/20/2019 2:16 PM PST [facility] Service: Hospitalist Progress Note Pt: Reagan Shepard [...] hematuria. Recent history notable for admit to [facility] from 03/28/19 to 04/04/2019 for CHF exacerbation with eventual dischar ge to [facility]. He then re-presented to same hospital due [...] critical limb ischemia on 04/[address] Robbisn. Patient sub sequently re-evaluated by podiatry who [...] encounter as of 01/31/20-14:16 IMAGING: Reviewed in [facility], no new results. PROBLEM LIST Principal Problem: [...] Received 8 days of IV antibiotics at [facility] discharged home on with augmentin, now readmitted on 04/06 at [facility] and started on rocephin after [...] SQH Code status: Full Dispo: back to [facility] pending recovery from vascular bypass surgery ([facility]), final ID recs, tentatively [...] therapy as indicated. Thank You, Rosendo SquiresD, [facility] 04/20/19 1:52 PM Nandini Sánchez se, MD - 04/20/2019 8:56 AM PST [facility] Service: Infectious Diseases Progress Note Hospital Day: [...] Component Value Units Date/Time Culture, Wound, Superficial [[id number]] (Abnormal) (Susceptibility) Collected: 04/06/19 1546 Order Status: Completed Lab Status: Final result Updated: 04/11/19 7328 Specimen: Body Fluid from Heel, Right Special Requests LT FOOT Special Requests Testing performed at [facility] [place] [place];[address] [place] [address];[place] [address] RESULT -- 1+ ENTEROCOCCUS FAECALIS Aminoglycosides (except [...] Sensitive SUSCEPTIBLE JESSICA Final Testing performed at [facility], [address] [place] [address] Culture, Wound, Superficial [[id number]] Collected: 04/06/19 1546 Order Status: Completed Lab Status: Final result Updated: 04/08/19 0937 Specimen: Body Fluid from Heel, Right Special Requests RIGHT FOOT Special Requests Testing performed at [facility] [place] [place];[address] [place] [address] RESULT -- 1+ NORMAL SKIN CELSA ISOLATED RESULT NO FURTHER WORKUP RESULT Testing performed at [facility], [address] [place] [address] Comment: Testing performed at [facility], [address] [place] [address] Microbiology Results (72 hrs) No results found [...] assisting with dosing and monitorization. Discussed with case filler regarding OPAT. Discussed with case filler regarding discharge planning. Dr. Dolan will take over ID service tomorrow. Please call if questions. Hero Richardson MD, MPH Infectious Diseases 04/20/19 heila Cabrera RN - 04/19/2019 7:20 PM PSTEnd of shift chart check complete. Sheila Cabrera RN unshine Love, [facility] - 04/19/2019 3:23 PM PSTFormatting of [...] Shaver MD - 04/19/2019 2:46 PM PST [facility] Service: Hospitalist Progress Note Pt: Reagan Shepard [...] hematuria. Recent history notable for admit to [facility] from 03/28/19 to 04/04/2019 for CHF exacerbation with eventual dischar ge to [facility]. He then re-presented to same hospital due [...] Received 8 days of IV antibiotics at [facility] discharged home on with augmentin, now readmitted on 04/06 at [facility] and started on rocephin after [...] of miller catheter with CBI by Dr. Monitel on 04/10/19. -continue flomax BID Obstipation: resolved, continue lactulose HTN: normotensive, continue above meds TII DM: HgA1c of 7.8, continue lantus 30u and LDISS PPx: SQH Code status: Full Dispo: back to [facility] pending recovery from vascular bypass surgery, final ID recs , tentatively planning for ~04/21 Grover Charles MD 2:46 PM 04/19/2019 Portions of this chart may have been copied from previous notes for continuity of care purp ose Hero Sánchez MD - 04/19/2019 9:53 AM PSTFormatting of this note might be different from the [facility] Service: Infectious Diseases Progress Note Hospital [...] Component Value Units Date/Time Culture, Wound, Superficial [[id number]] (Abnormal) (Susceptibility) Collected: 04/06/191545 Order Status: Completed Lab Status: Final result Updated: 04/11/1928 Specimen: Body Fluid from Heel, Right Special Requests LT FOOT Special Requests Testing performed at [facility] [place] [place];[address] [place] [address] RESULT -- 1+ ENTEROCOCCUS FAECALIS Aminoglycosides (except [...] Sensitive SUSCEPTIBLE JESSICA Final Testing performed at [facility], [address] [place] [address] Culture, Wound, Superficial [[id number]] Collected: 04/06/191545 Order Status: Completed Lab Status: Final result Updated: 04/08/1937 Specimen: Body Fluid from Heel, Right Special Requests RIGHT FOOT Special Requests Testing performed at [facility] [place] [place];[address] [place] [address] RESULT -- 1+ NORMAL SKIN CELSA ISOLATED RESULT NO FURTHER WORKUP RESULT Testing performed at [facility], [address] [place] [address] Comment: Testing performed at [facility], [address] [place] [address] Culture, Blood [[id number]] Collected: 04/06/19337 Order Status: Completed Lab Status: Final result Updated: 04/12/1952 Specimen: Peripheral Blood Special Requests R WRIST Special Requests Testing performed at [facility] [place] [place];[address] [place] [address] RESULT NO GROWTH 6 DAYS RESULT Testing performed at [facility], [address] [place] [address] Comment: Testing performed at [facility], [address] [place] [address] Culture, Blood [[id number]] Collected: 04/06/19330 Order Status: Completed Lab Status: Final result Updated: 04/12/1952 Specimen: Peripheral Blood Special Requests L WRIST Special Requests Testing performed at [facility] [place] [place];[address] [place] [address] RESULT NO GROWTH 6 DAYS RESULT Testing performed at [facility], [address] [place] [address] Comment: Testing performed at [facility], [address] [place] [address] Microbiology Results (72 hrs) No results found [...] might be different from the o riginal. [facility] Service: Vascular Surgery Progress Note SUBJECTIVE Patient Summary: 74 y.o. man with complex medical issues and LE ischemic ulcers, he wa s recently admitted to the [facility] from 03/28/19 to 04/04/19 where he was treated/ diagnosed with systolic heart failure, type 2 MD/NSTEMI, SHAE, ARF. O2 desaturation brought him from SNF to [facility] [place] [place] and current admission today with CHF and [...] Rachel Altamirano RN - 04/19/2019 5:46 AM [id number] left foot dressing change complete per order. [...] Grover Shaver MD - 4:52 PM PST [facility] Service: Hospitalist Progress Note Pt: Reagan Shepard AGE/SEX: 74 y.o. male ROOM: [facility] [place] [place] OR INTRA OP POOL/[facility] [place] [place]* : 1945 PCP: Jamar Manuel MD ADMIT DATE: 04/06/2019 TODAY'S DATE: 04/18/2019 Hospital Day/Hospital Course: LOS: 12 days Mr. Shepard is a 74-year-old gentleman with a history of bilateral nonhealing diabetic trisha t ulcers, and history of TBI, stroke, insulin dependent DM, who presents with CHF exacerbati on with hospital course complicated by gross hematuria. Recent history notable for admit to [facility] from 03/28/19 to 04/04/2019 for CHF exacerbation with eventual dischar ge to [facility]. He then re-presented to same hospital due [...] the last 72 hours. IMAGING: Reviewed in [email or web address], no new results. PROBLEM LIST Principal Problem: [...] Received 8 days of IV antibiotics at [facility] discharged home on with augmentin, now readmitted on 04/06 at [facility] and started on rocephin after [...] SQH Code status: Full Dispo: back to [facility] pending cardiac evaluation/optimization, vascular bypass donna wero, [...] as indicated. Thank You, Sunshine Love, PharmD, [facility] 04/18/19 2:45 PM Syed López [...] might be different from t kevin original. [facility] Service: Infectious Diseases Progress Note Hospital Day: [...] Component Value Units Date/Time Culture, Wound, Superficial [[id number]] (Abnormal) (Susceptibility) Collected: 04/06/191545 Order Status: Completed Lab Status: Final result Updated: 04/11/1928 Specimen: Body Fluid from Heel, Right Special Requests LT FOOT Special Requests Testing performed at [facility] [place] [place];[address] [place] [address] RESULT -- 1+ ENTEROCOCCUS FAECALIS Aminoglycosides (except [...] Sensitive SUSCEPTIBLE JESSICA Final Testing performed at [facility], [address] [place] [address] Culture, Wound, Superficial [[id number]] Collected: 04/06/191545 Order Status: Completed Lab Status: Final result Updated: 04/08/19 0937 Specimen: Body Fluid from Heel, Right Special Requests RIGHT FOOT Special Requests Testing performed at [facility] [place] [place];[address] [place] [address] RESULT -- 1+ NORMAL SKIN CELSA ISOLATED RESULT NO FURTHER WORKUP RESULT Testing performed at [facility], [address] [place] [address] Comment: Testing performed at [facility], [address] [place] [address] Culture, Blood [[id number]] Collected: 04/06/19337 Order Status: Completed Lab Status: Final result Updated: 04/12/1952 Specimen: Peripheral Blood Special Requests R WRIST Special Requests Testing performed at [facility] [place] [place];[address] [place] [address] RESULT NO GROWTH 6 DAYS RESULT Testing performed at [facility], [address] [place] [address] Comment: Testing performed at [facility], [address] [place] [address]113 Culture, Blood [[id number]] Collected: 04/06/19330 Order Status: Completed Lab Status: Final result Updated: 04/12/1952 Specimen: Peripheral Blood Special Requests L WRIST Special Requests Testing performed at [facility] [place] [place];[address] [place] [address] RESULT NO GROWTH 6 DAYS RESULT Testing performed at [facility], [address] [place] [address] Comment: Testing performed at [facility], [address] [place] [address] Microbiology Results (72 hrs) No results found [...] might be different from the o riginal. [facility] Service: Vascular Surgery Progress Note SUBJECTIVE Patient Summary: 74 y.o. man with complex medical issues and LE ischemic ulcers, he wa s recently admitted to the [facility] from 03/28/19 to 04/04/19 where he was treated/ diagnosed with systolic heart failure, type 2 MD/NSTEMI, SHAE, ARF. O2 desaturation brought him from SNF to [facility] [place] [place] and current admission today with CHF and [...] of feet - [facility]. Cryovein is in [...] of shift chart check review Sunshine Chen, [facility] - 04/17/2019 1:38 PM PST Vancomycin [...] as indicated. Thank You, Sunshine Love, PharmD, [facility] 04/17/19 1:38 PM Grover Shaver MD - 04/17/2019 12:25 PM PST [facility] Service: Hospitalist Progress Note Pt: Reagan Shepard AGE/SEX: 74 y.o. male ROOM: [id number] : 1945 PCP: Jamar Manuel MD ADMIT DATE: 04/06/2019 TODAY'S DATE: 04/17/2019 Hospital Day/Hospital Course: LOS: 11 days Mr. Shepard is a 74-year-old gentleman with a history of bilateral nonhealing diabetic trisha t ulcers, and history of TBI, stroke, insulin dependent DM, who presents with CHF exacerbati on with hospital course complicated by gross hematuria. Recent history notable for admit to [facility] from 03/28/19 to 04/04/2019 for CHF exacerbation with eventual dischar ge to [facility]. He then re-presented to same hospital due [...] Received 8 days of IV antibiotics at [facility] discharged home on with augmentin, now readmitted on 04/06 at [facility] and started on rocephin after [...] SQH Code status: Full Dispo: back to [facility] pending cardiac evaluation/optimization, vascular bypass donna wero, final ID recs, tentatively planning for ~04/21 Grover Charles MD 12:25 PM 04/17/2019 Portions of this chart may have been copied from previous notes for continuity of care purp ose Rico Modi MD - 11:19 AM PST [facility] Service: Cardiology/[facility] Interventional cardiology note RE: Reagan [...] minimal reversib ility 2. Recent non-Q wave MD 3. Severe peripheral vascular disease 4. Diabetes [...] might be different from the heidi razo. [facility] Service: Infectious Diseases Progress Note Hospital Day: [...] Component Value Units Date/Time Culture, Wound, Superficial [[id number]] (Abnormal) (Susceptibility) Collected: 04/06/191545 Order Status: Completed Lab Status: Final result Updated: 04/11/1928 Specimen: Body Fluid from Heel, Right Special Requests LT FOOT Special Requests Testing performed at [facility] [place] [place];[address] [place] [address];[place] [address] RESULT -- 1+ ENTEROCOCCUS FAECALIS Aminoglycosides (except [...] Sensitive SUSCEPTIBLE JESSICA Final Testing performed at [facility], [address] [place] [address], [place] [address] Culture, Wound, Superficial [[id number]] Collected: 04/06/191545 Order Status: Completed Lab Status: Final result Updated: 04/08/19 0937 Specimen: Body Fluid from Heel, Right Special Requests RIGHT FOOT Special Requests Testing performed at [facility] [place] [place];[address] [place] [address];[place] [address] RESULT -- 1+ NORMAL SKIN CELSA ISOLATED RESULT NO FURTHER WORKUP RESULT Testing performed at [facility], [address] [place] [address] Comment: Testing performed at [facility], [address] [place] [address] Culture, Blood [[id number]] Collected: 04/06/19337 Order Status: Completed Lab Status: Final result Updated: 04/12/19651 Specimen: Peripheral Blood Special Requests R WRIST Special Requests Testing performed at [facility] [place] [place];[address] [place] [address] RESULT NO GROWTH 6 DAYS RESULT Testing performed at [facility], [address] [place] [address] Comment: Testing performed at [facility], [address] [place] [address] Culture, Blood [[id number]] Collected: 04/06/19330 Order Status: Completed Lab Status: Final result Updated: 04/12/1952 Specimen: Peripheral Blood Special Requests L WRIST Special Requests Testing performed at [facility] [place] [place];[address] [place] [address] RESULT NO GROWTH 6 DAYS RESULT Testing performed at [facility], [address] [place] [address] Comment: Testing performed at [facility], [address] [place] [address]94 Microbiology Results (72 hrs) No results found [...] might be different from the o riginal. [facility] Service: Vascular Surgery Progress Note SUBJECTIVE Patient Summary: 74 y.o. man with complex medical issues and LE ischemic ulcers, he wa s recently admitted to the [facility] from 03/28/19 to 04/04/19 where he was treated/ diagnosed with systolic heart failure, type 2 MD/NSTEMI, SHAE, ARF. O2 desaturation brought him from SNF to [facility] [place] [place] and current admission today with CHF and [...] Sánchez MD - 04/16/2019 6:49 PM PST [facility] Service: Infectious Diseases Progress Note Hospital Day: [...] Component Value Units Date/Time Culture, Wound, Superficial [[id number]] (Abnormal) (Susceptibility) Collected: 04/06/19 1546 Order Status: Completed Lab Status: Final result Updated: 04/11/19 0728 Specimen: Body Fluid from Heel, Right Special Requests LT FOOT Special Requests Testing performed at [facility] [place] [place];[address] [place] [address];[place] [address] RESULT -- 1+ ENTEROCOCCUS FAECALIS Aminoglycosides (except [...] Sensitive SUSCEPTIBLE JESSICA Final Testing performed at [facility], [address] [place] [address]241 Culture, Wound, Superficial [[id number]] Collected: 04/06/19 1546 Order Status: Completed Lab Status: Final result Updated: 04/08/1937 Specimen: Body Fluid from Heel, Right Special Requests RIGHT FOOT Special Requests Testing performed at [facility] [place] [place];[address] [place] [address] RESULT -- 1+ NORMAL SKIN CELSA ISOLATED RESULT NO FURTHER WORKUP RESULT Testing performed at [facility], [address] [place] [address] Comment: Testing performed at [facility], [address] [place] [address]703 Culture, Blood [[id number]] Collected: 04/06/19337 Order Status: Completed Lab Status: Final result Updated: 04/12/1952 Specimen: Peripheral Blood Special Requests R WRIST Special Requests Testing performed at [facility] [place] [place];[address] [place] [address] RESULT NO GROWTH 6 DAYS RESULT Testing performed at [facility], [address] [place] [address] Comment: Testing performed at [facility], [address] [place] [address]12 Culture, Blood [[id number]] Collected: 04/06/19 0331 Order Status: Completed Lab Status: Final result Updated: 04/12/19 0652 Specimen: Peripheral Blood Special Requests L WRIST Special Requests Testing performed at [facility] [place] [place];[address] [place] [address];[place] [address] RESULT NO GROWTH 6 DAYS RESULT Testing performed at [facility], [address] [place] [address] Comment: Testing performed at [facility], [address] [facility], [place] [address] Microbiology Results (72 hrs) No results found [...] note might be different from the original. [facility] Service: Hospitalist Progress Note Pt: Reagan Shepard [...] hematuria. Recent history notable for admit to [facility] from 03/28/19 to 04/04/2019 for CHF exacerbation with eventual dischar ge to [facility]. He then re-presented to same hospital due [...] Received 8 days of IV antibiotics at [facility] discharged home on with augmentin, now readmitted on 04/06 at [facility] and started on rocephin after [...] SQH Code status: Full Dispo: back to [facility] pending cardiac evaluation/optimization, vascular bypass donna wero, [...] 04/16/2019 3:21 PM Sunshine Chen, [facility] - 04/16/2019 12:18 PM PST Vancomycin [...] Patient encouraged to discuss medication changes with clinical specialist medical device ragini stanley to stopping medications or making any changes. Patient's questions answered. Heart Fail ure Hot Line number provided to patient. Face to face time was spent with patient providing counseling and education for congestive heart failure. Bhanu Wakefield P A-C - 04/16/2019 8:43 AM PST [facility] Service: Vascular Surgery Progress Note SUBJECTIVE Patient Summary: 74 y.o. man with complex medical issues and LE ischemic ulcers, he wa s recently admitted to the [facility] from 03/28/19 to 04/04/19 where he was treated/ diagnosed with systolic heart failure, type 2 MD/NSTEMI, SHAE, ARF. O2 desaturation brought him from SNF to [facility] [place] [place] and current admission today with CHF and [...] MD - 04/15/2019 1 2:48 PM PST [facility] Service: Hospitalist Progress Note Pt: Reagan Shepard AGE/SEX: 74 y.o. male ROOM: [address] [place] [address] : 1945 PCP: Jamar Manuel MD ADMIT DATE: 04/06/2019 TODAY'S DATE: 04/15/2019 Hospital Day/Hospital Course: LOS: 9 days Mr. Shepard is a 74-year-old gentleman with a history of bilateral nonhealing diabetic trisha t ulcers, and history of TBI, stroke, insulin dependent DM, who presents with CHF exacerbati on with hospital course complicated by gross hematuria. Recent history notable for admit to [facility] from 03/28/19 to 04/04/2019 for CHF exacerbation with eventual dischar ge to [facility]. He then re-presented to same hospital due [...] 04/14/19 0629 BNP 587.58* IMAGING: Reviewed in [facility], no new results. PROBLEM LIST Principal Problem: [...] risk stratification . -cardiology consulted -NPO at [place] for nuc med stress test in morning [...] Received 8 days of IV antibiotics at [facility] discharged home on with augmentin, now readmitted on 04/06 at [facility] and started on rocephin after [...] SQH Code status: Full Dispo: back to [facility] pending cardiac evaluation/optimization, vascular bypass donna wero, final ID recs, likely 4-5 more days in hospital Grover Charles MD 12:48 PM 04/15/2019 Portions of this chart may have been copied from previous notes for continuity of care purp ose roctor, Sheila Brown [facility] - 04/15/2019 10:55 AM PST Vancomycin [...] as indicated. Thank You, Sheila Ahuja, PharmD, [facility] 04/15/2019, 10:41 AM Simba Fenton MD - 04/15/2019 8:48 AM PSTDiscussion held with patient about needing a bypass for right lower extremity due to critical limb ischemia. Patient agreeable to surgery. Will need cardiac clearance prior to surgery. Cryovein has been ordered for surgery. Surgery planned for Tue. Please feel free to call with any questions or concerns. Simba Cheng MD upDebby bwoer RN - 04/14/2019 6:38 PM PSTPt had [...] might be differ ent from the original. [facility] Service: Infectious Diseases Progress Note Hospital Day: [...] Component Value Units Date/Time Culture, Wound, Superficial [[id number]] (Abnormal) (Susceptibility) Collected: 04/06/19 1546 Order Status: Completed Lab Status: Final result Updated: 04/11/19 0393 Specimen: Body Fluid from Heel, Right Special Requests LT FOOT Special Requests Testing performed at [facility] [place] [place];[address] [place] [address];[place] [address] RESULT -- 1+ ENTEROCOCCUS FAECALIS Aminoglycosides (except [...] Sensitive SUSCEPTIBLE JESSICA Final Testing performed at [facility], [address] [place] [address] Culture, Wound, Superficial [[id number]] Collected: 04/06/19 1546 Order Status: Completed Lab Status: Final result Updated: 04/08/19 0937 Specimen: Body Fluid from Heel, Right Special Requests RIGHT FOOT Special Requests Testing performed at [facility] [place] [place];[address] [place] [address] RESULT -- 1+ NORMAL SKIN CELSA ISOLATED RESULT NO FURTHER WORKUP RESULT Testing performed at [facility], [address] [place] [address] Comment: Testing performed at [facility], [address] [place] [address] Culture, Blood [[id number]] Collected: 04/06/198 Order Status: Completed Lab Status: Final result Updated: 04/12/19 0652 Specimen: Peripheral Blood Special Requests R WRIST Special Requests Testing performed at [facility] [place] [place];[address] [place] [address] RESULT NO GROWTH 6 DAYS RESULT Testing performed at [facility], [address] [place] [address] Comment: Testing performed at [facility], [address] [place] [address] Culture, Blood [[id number]] Collected: 04/06/19 033 Order Status: Completed Lab Status: Final result Updated: 04/12/19 0652 Specimen: Peripheral Blood Special Requests L WRIST Special Requests Testing performed at [facility] [place] [place];[address] [facility];[place] [address] RESULT NO GROWTH 6 DAYS RESULT Testing performed at [facility], [address] [place] [address] Comment: Testing performed at [facility], [address] [place] [address] Microbiology Results (72 hrs) No results found [...] note might be different from the origin [facility] Service: Hospitalist Progress Note Pt: Reagan Shepard AGE/SEX: 74 y.o. male ROOM: [facility]/4452- : 1945 PCP: Jamar Manuel MD ADMIT DATE: 04/06/2019 TODAY'S DATE: 04/14/2019 Hospital Day/Hospital Course: LOS: 8 days Mr. Shepard is a 74-year-old gentleman with a history of bilateral nonhealing diabetic trisha t ulcers, and history of TBI, stroke, insulin dependent DM, who presents with CHF exacerbati on with hospital course complicated by gross hematuria. Recent history notable for admit to [facility] from 03/28/19 to 04/04/2019 for CHF exacerbation with eventual dischar ge to [facility]. He then re-presented to same hospital due [...] Received 8 days of IV antibiotics at [facility] discharged home on with augmentin, now readmitted on 04/06 at [facility] and started on rocephin after [...] date with age appropriate cancer screening PPx: [facility] Code status: Full Dispo: back to [facility] pending improvement in gross hematuria, CHF exacerbation, re peat angiogram, final ID recs, likely 4-5 more days in hospital Grover Charles MD 1:29 PM 04/14/2019 Portions of this chart may have been copied from previous notes for continuity of care purp ose Lyric Molina RN - 04/14/2019 1:27 PM PST [facility] Service: Wound Care Follow Up Note Hospital [...] any additional questions. Lyric Mclain RN, CMSRN, [facility] Inpatient Wound Ostomy Care [phone] 04/14/2019 1:29 PM Dheeraj Barraza, PT - [...] far vs stable.Vandana Luciano RN Meghan Alejandre [facility] - 04/14/2019 6:31 AM PST Vancomycin [...] Shaver MD - 04/13/2019 4:02 PM PST [facility] Service: Hospitalist Progress Note Pt: Reagan Shepard [...] hematuria. Recent history notable for admit to [facility] from 03/28/19 to 04/04/2019 for CHF exacerbation with eventual dischar ge to [facility]. He then re-presented to same hospital due [...] Received 8 days of IV antibiotics at [facility] discharged home on with augmentin, now readmitted on 04/06 at [facility] and started on rocephin after [...] date with age appropriate cancer screening PPx: [facility] Code status: Full Dispo: back to [facility] pending improvement in gross hematuria, CHF exacerbation, [...] 113.3 kg Adjusted body weight: 89.1 kg [place] body weight: 73 kg Current Vital Signs: [...] due to patient being away at a [facility]. Drawing a level once the patient returns [...] as indicated. Thank You, Sunshine Love, PharmD, [facility] 04/13/19 3:20 PM Nandini Sánchez se, MD - 04/13/2019 10:54 AM PST [facility] Service: Infectious Diseases Progress Note Hospital Day: [...] Component Value Units Date/Time Culture, Wound, Superficial [[id number]] (Abnormal) (Susceptibility) Collected: 04/06/19 1546 Order Status: Completed Lab Status: Final result Updated: 04/11/1928 Specimen: Body Fluid from Heel, Right Special Requests LT FOOT Special Requests Testing performed at [facility] [place] [place];[address] [place] [address];[place] [address] RESULT -- 1+ ENTEROCOCCUS FAECALIS Aminoglycosides (except [...] Sensitive SUSCEPTIBLE JESSICA Final Testing performed at [facility], [address] [place] [address], [place] [address] Culture, Wound, Superficial [[id number]] Collected: 04/06/19 1546 Order Status: Completed Lab Status: Final result Updated: 04/08/19 0937 Specimen: Body Fluid from Heel, Right Special Requests RIGHT FOOT Special Requests Testing performed at [facility] [place] [place];[address] [place] [address] RESULT -- 1+ NORMAL SKIN CELSA ISOLATED RESULT NO FURTHER WORKUP RESULT Testing performed at [facility], [address] [place] [address] Comment: Testing performed at [facility], [address] [place] [address] Culture, Blood [[id number]] Collected: 04/06/19 0338 Order Status: Completed Lab Status: Final result Updated: 04/12/19 0652 Specimen: Peripheral Blood Special Requests R WRIST Special Requests Testing performed at [facility] [place] [place];[address] [place] [address] RESULT NO GROWTH 6 DAYS RESULT Testing performed at [facility], [address] [place] [address] Comment: Testing performed at [facility], [address] [place] [address] Culture, Blood [[id number]] Collected: 04/06/19 0331 Order Status: Completed Lab Status: Final result Updated: 04/12/19 0652 Specimen: Peripheral Blood Special Requests L WRIST Special Requests Testing performed at [facility] [place] [place];[address] [place] [address] RESULT NO GROWTH 6 DAYS RESULT Testing performed at [facility], [address] [place] [address] Comment: Testing performed at [facility], [address] [place] [address] Microbiology Results (72 hrs) No results found [...] might be different from the o riginal. [facility] Service: Vascular Surgery Progress Note SUBJECTIVE Patient Summary: 74 y.o. man with complex medical issues and LE ischemic ulcers, he wa s recently admitted to the [facility] from 03/28/19 to 04/04/19 where he was treated/ diagnosed with systolic heart failure, type 2 MD/NSTEMI, SHAE, ARF. O2 desaturation brought him from SNF to [facility] [place] [place] and current admission today with CHF and [...] risks. Signed consent obtained. Will proceed to [facility] Clam Treader today for right leg angiogram. Moderate Sedation [...] might be different from the o riginal. [facility] Service: Infectious Diseases Progress Note Hospital Day: [...] Component Value Units Date/Time Culture, Wound, Superficial [[id number]] (Abnormal) (Susceptibility) Collected: 04/06/19 1546 Order Status: Completed Lab Status: Final result Updated: 04/11/19 0728 Specimen: Body Fluid from Heel, Right Special Requests LT FOOT Special Requests Testing performed at [facility] [place] [place];[address] [place] [address];[place] [address] RESULT -- 1+ ENTEROCOCCUS FAECALIS Aminoglycosides (except [...] Sensitive SUSCEPTIBLE JESSICA Final Testing performed at [facility], [address] [place] [address] Culture, Wound, Superficial [[id number]] Collected: 04/06/19 1546 Order Status: Completed Lab Status: Final result Updated: 04/08/1937 Specimen: Body Fluid from Heel, Right Special Requests RIGHT FOOT Special Requests Testing performed at [facility] [place] [place];[address] [place] [address] RESULT -- 1+ NORMAL SKIN CELSA ISOLATED RESULT NO FURTHER WORKUP RESULT Testing performed at [facility], [address] [place] [address] Comment: Testing performed at [facility], [address] [place] [address] Culture, Blood [[id number]] Collected: 04/06/19337 Order Status: Completed Lab Status: Final result Updated: 04/12/1952 Specimen: Peripheral Blood Special Requests R WRIST Special Requests Testing performed at [facility] [place] [place];[address] [place] [address] RESULT NO GROWTH 6 DAYS RESULT Testing performed at [facility], [address] [place] [address] Comment: Testing performed at [facility], [address] [place] [address] Culture, Blood [[id number]] Collected: 04/06/19 0331 Order Status: Completed Lab Status: Final result Updated: 04/12/1952 Specimen: Peripheral Blood Special Requests L WRIST Special Requests Testing performed at [facility] [place] [place];[address] [place] [address] RESULT NO GROWTH 6 DAYS RESULT Testing performed at [facility], [address] [place] [address] Comment: Testing performed at [facility], [address] [place] [address] Microbiology Results (72 hrs) No results found [...] be different from the [facility] Service: Hospitalist Progress Note Pt: Reagan [...] hematuria. Recent history notable for admit to [facility] from 03/28/19 to 04/04/2019 for CHF exacerbation with eventual dischar ge to [facility]. He then re-presented to same hospital due [...] Received 8 days of IV antibiotics at [facility] discharged home on with augmentin, now readmitted on 04/06 at [facility] and started on rocephin after [...] H Code status: Full Dispo: back to [facility] pending improvement in gross hematuria, CHF exacerbation, re peat angiogram, final ID recs, likely 4-5 more days in hospital Grover Charles MD 4:43 PM 04/12/2019 Portions of this chart may have been copied from previous notes for continuity of care purp ose Bhanu Wakefield PA-C - 04/12/2019 4:00 PM PST [facility] Service: Vascular Surgery Progress Note SUBJECTIVE Patient Summary: 74 y.o. man with complex medical issues and LE ischemic ulcers, he wa s recently admitted to the [facility] from 03/28/19 to 04/04/19 where he was treated/ diagnosed with systolic heart failure, type 2 MD/NSTEMI, SHAE, ARF. O2 desaturation brought him from SNF to [facility] [place] [place] and current admission today with CHF and [...] Bhanu Seaman PA-C Vascular Surgery unshine Love, [facility] - 04/12/2019 12:27 PM PST Vancomycin Dosing Per Pharmacy Subjective/Objective Reagan Shepard is a 74 y.o. 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 Additional antimicrobials: zosyn Quadriplegic/Paraplegic: no Diabetes: yes Baseline Serum Creatinine: 0.6 mg/dL Actual weight: 113.3 kg Adjusted body weight: 89.1 kg [place] body weight: 73 kg Current Vital Signs: [...] as indicated. Thank You, Sunshine Love, RosendoD, [facility] 04/12/19 3:27 PM Grover Shaver MD - 04/11/2019 5:06 PM PST [facility] Service: Hospitalist Progress Note Pt: Reagan Shepard [...] hematuria. Recent history notable for admit to [facility] from 03/28/19 to 04/04/2019 for CHF exacerbation with eventual dischar ge to [facility]. He then re-presented to same hospital due [...] Received 8 days of IV antibiotics at [facility] discharged home on with augmentin, now readmitted on 04/06 at [facility] and started on rocephin after [...] above) Code status: Full Dispo: back to [facility] pending improvement in gross hematuria and CHF exacerbation Grover Charles MD 5:06 PM 04/11/2019 Portions of this chart may have been copied from previous notes for continuity of care purp ose roctor, Sheila Brown [facility] - 04/11/2019 2:03 PM PST Vancomycin Dosing Per Pharmacy Subjective/Objective Reagan Shepard is a 74 y.o. 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 Additional antimicrobials: zosyn Quadriplegic/Paraplegic: no Diabetes: yes Baseline Serum Creatinine: 0.6 mg/dL Actual weight: 113.3 kg Adjusted body weight: 89.1 kg [place] body weight: 73 kg Current Vital Signs: [...] IV q12h (14 mg/kg/dose) Rationale: Based on [facility] dosing nomogram, current renal function, and [...] might be different from stephanie brown original. [facility] Service: Infectious Diseases Progress Note Hospital Day: [...] Component Value Units Date/Time Culture, Wound, Superficial [[id number]] (Abnormal) (Susceptibility) Collected: 04/06/191545 Order Status: Completed Lab Status: Final result Updated: 04/11/19 0728 Specimen: Body Fluid from Heel, Right Special Requests LT FOOT Special Requests Testing performed at [facility] [place] [place];[address] [place] [address] RESULT -- 1+ ENTEROCOCCUS FAECALIS Aminoglycosides (except [...] Sensitive SUSCEPTIBLE JESSICA Final Testing performed at [facility], [address] [place] [address] Culture, Wound, Superficial [[id number]] Collected: 04/06/191545 Order Status: Completed Lab Status: Final result Updated: 04/08/19 0937 Specimen: Body Fluid from Heel, Right Special Requests RIGHT FOOT Special Requests Testing performed at [facility] [place] [place];[address] [place] [address] RESULT -- 1+ NORMAL SKIN CELSA ISOLATED RESULT NO FURTHER WORKUP RESULT Testing performed at [facility], [address] [place] [address] Comment: Testing performed at [facility], [address] [place] [address] Culture, Blood [[id number]] Collected: 04/06/19337 Order Status: Completed Lab Status: Preliminary result Updated: 04/07/19812 Specimen: Peripheral Blood Special Requests R WRIST Special Requests Testing performed at [facility] [place] [place];[address] [place] [address] RESULT NO GROWTH AT THIS TIME RESULT Testing performed at [facility], [address] [place] [address]25 Comment: Testing performed at [facility], [address] [place] [address]24 Culture, Blood [[id number]] Collected: 04/06/19330 Order Status: Completed Lab Status: Preliminary result Updated: 04/07/19812 Specimen: Peripheral Blood Special Requests L WRIST Special Requests Testing performed at [facility] [place] [place];[address] [place] [address] RESULT NO GROWTH AT THIS TIME RESULT Testing performed at [facility], [address] [place] [address] Comment: Testing performed at [facility], [address] [place] [address] Microbiology Results (72 hrs) No results found [...] Shaver MD - 04/10/2019 4:51 PM PST [facility] Service: Hospitalist Progress Note Pt: Reagan Shepard AGE/SEX: 74 y.o. male ROOM: [facility]- : 1945 PCP: Jamar Manuel MD ADMIT DATE: 04/06/2019 TODAY'S DATE: 04/10/2019 Hospital Day/Hospital Course: LOS: 4 days Mr. Shepard is a 74-year-old gentleman with a history of bilateral nonhealing diabetic trisha t ulcers, and history of TBI, stroke, insulin dependent DM, who presents with CHF exacerbati on with hospital course complicated by gross hematuria. Recent history notable for admit to [facility] from 03/28/19 to 04/04/2019 for CHF exacerbation with eventual dischar ge to [facility]. He then re-presented to same hospital due [...] Received 8 days of IV antibiotics at [facility] discharged home on with augmentin, now readmitted on 04/06 at [facility] and started on rocephin after [...] above) Code status: Full Dispo: back to [facility] pending improvement in gross hematuria and CHF exacerbation Grover Charles MD 4:51 PM 04/10/2019 Portions of this chart may have been copied from previous notes for continuity of care purp ose Hero Sánchez MD - 04/10/2019 2:27 PM PSTFormatting of this note might be different from the [facility]: [facility]ious Diseases Progress Note Hospital [...] Component Value Units Date/Time Culture, Wound, Superficial [[id number]] (Abnormal) (Susceptibility) Collected: 04/06/19 1546 Order Status: Completed Lab Status: Preliminary result Updated: 04/10/19 0930 Specimen: Body Fluid from Heel, Right Special Requests LT FOOT Special Requests Testing performed at [facility] [place] [place];[address] [place] [address] RESULT -- 1+ ENTEROCOCCUS FAECALIS Aminoglycosides (except for high-level resistance testing), cephalosporins, clindamycin, an d trimethoprim-sulfamethoxazole may appear active in vitro but they are not effective clinic ally. RESULT -- 1+ ENTEROBACTER CLOACAE COMPLEX RESULT -- 1+ STAPHYLOCOCCUS AUREUS RESULT SUSCEPTIBILITY TO FOLLOW RESULT Testing performed at [facility], [address] [place] [address] Susceptibility Enterococcus faecalis (1) Antibiotic Interpretation Microscan [...] Sensitive SUSCEPTIBLE JESSICA Preliminary Testing performed at [facility], [address] [place] [address] Culture, Wound, Superficial [[id number]] Collected: 04/06/191545 Order Status: Completed Lab Status: Final result Updated: 04/08/19 0937 Specimen: Body Fluid from Heel, Right Special Requests RIGHT FOOT Special Requests Testing performed at [facility] [place] [place];[address] [place] [address] RESULT -- 1+ NORMAL SKIN CELSA ISOLATED RESULT NO FURTHER WORKUP RESULT Testing performed at [facility], [address] [place] [address] Comment: Testing performed at [facility], [address] [place] [address] Culture, Blood [[id number]] Collected: 01/337 Order Status: Completed Lab Status: Preliminary result Updated: 04/07/19812 Specimen: Peripheral Blood Special Requests R WRIST Special Requests Testing performed at [facility] [place] [place];[address] [place] [address] RESULT NO GROWTH AT THIS TIME RESULT Testing performed at [facility], [address] [place] [address]161 Comment: Testing performed at [facility], [address] [place] [address] 11413 Culture, Blood [[id number]] Collected: 04/06/19330 Order Status: Completed Lab Status: Preliminary result Updated: 04/07/19812 Specimen: Peripheral Blood Special Requests L WRIST Special Requests Testing performed at [facility] [place] [place];[address] [place] [address]32 RESULT NO GROWTH AT THIS TIME RESULT Testing performed at [facility], [address] [place] [address]755 Comment: Testing performed at [facility], [address] [place] [address]19 Microbiology Results (72 hrs) No results found [...] might be different from the ramiro falcon [facility] Service: Urology Progress Note Hospital Day: LOS: [...] essential h ypertension, insulin-dependent diabetes, history of MD, GERD, ischemic stroke, diffuse signi ficant peripheral [...] Lujan MD - 04/09/2019 6:21 PM PST [facility] Service: Urology Progress Note Hospital Day: LOS: 3 days Post-Op Day: * No surgery found * SUBJECTIVE Events Overnight: This 74-year-old gentleman with a known history of insulin-dependen t diabetes mellitus, advanced peripheral vascular disease, osteomyelitis of right foot, diab etic foot ulcers which are significant and advanced in both feet, left hemiparesis, essentia l hypertension, hyperkalemia, history of GERD and non-STEMI MD, history of bacteremia, histo ry of stroke. [...] Color, UA STRAW Clarity, UA CLEAR Specific Dexter, Urine 1.006 1.002 - 1.030 Leukocyte esterase, [...] of congestive failure. Signed by: Madison Solis, [facility] Sign Date/Time: 04/09/2019 9:25 AM PROBLEM [...] longstanding history of diabetes, hypertension, GERD, ac sokaogon left hemiparesis, essential hypertension and very advanced [...] might be different from the terry miller [facility] Service: Vascular Surgery Progress Note SUBJECTIVE Patient Summary: 74 y.o. man with complex medical issues and LE ischemic ulcers, he wa s recently admitted to the [facility] from 03/28/19 to 04/04/19 where he was treated/ diagnosed with systolic heart failure, type 2 MD/NSTEMI, SHAE, ARF. O2 desaturation brought him from SNF to [facility] [place] and current admission today with CHF and [...] will have him scheduled for 04/12/2019 at [facility] for his first leg, then will plan [...] Hospitalist Progress Note Reagan Shepard 74 y.o. [id number] male Jamar Manuel MD Hospital Day: LOS: 3 days Patient Summary: 74-year-old gentleman with past medical history of bilateral nonheali ng diabetic foot ulcer, and history of traumatic brain injury, stroke, diabetes mellitus typ e 2 insulin-dependent who was recently admitted to [facility] from 03/28/21 020 with acute hypoxic respiratory failure secondary to systolic CHF exacerbation with eject ion fraction of 40%, CTA chest negative for PE, troponin was minimally elevated 0.44 treated conservatively with medical therapy discharge to [facility] who went back to [facility] emergency department with worsening shortness of breath [...] 04/09/2019 1044 Gross per 24 hour Intake 63458 ml Output 9850 ml Net 856 ml [...] home on on Augmentin readmitted on at [facility] and started on Rocephin after sending [...] might be different from the o sheryl. Service: Podiatry Progress Note Hospital Day: LOS: 3 days Post-Op Day: * No surgery found * SUBJECTIVE Patient Summary: The patient is 74 y.o. male with significant cardiac and IDDM2 past medical history with recent admissions to [facility] where he was found to have el evated troponin level and he became decompensated and desaturated and was transferred to [facility] for a higher level of [...] Ady Mata RN - 04/08/2019 9:49 PM [id number]: pt a/o to all, vss. cbi in [...] Hospitalist Progress Note Reagan Shepard 74 y.o. [id number] male Jamar Manuel MD Hospital Day: LOS: 2 days Patient Summary: 74-year-old gentleman with past medical history of bilateral nonheali ng diabetic foot ulcer, and history of traumatic brain injury, stroke, diabetes mellitus typ e 2 insulin-dependent who was recently admitted to [facility] from 03/28/21 020 with acute hypoxic respiratory failure secondary to systolic CHF exacerbation with eject ion fraction of 40%, CTA chest negative for PE, troponin was minimally elevated 0.44 treated conservatively with medical therapy discharge to [facility] who went back to [facility] emergency department with worsening shortness of breath [...] home on on Augmentin readmitted on at [facility] and started on Rocephin after sending [...] might be different from trina allen original. [facility] Service: Cardiology Progress Note Hospital Day: LOS: [...] Nandini Barboza RN - 04/07/2019 10:48 PM [id number]: pt a/o to all, occasionally forgetful, vss. [...] Hospitalist Progress Note Reagan Shepard 74 y.o. [id number] male Jamar Manuel MD Hospital Day: LOS: 1 day Patient Summary: 74-year-old gentleman with past medical history of bilateral nonheali ng diabetic foot ulcer, and history of traumatic brain injury, stroke, diabetes mellitus typ e 2 insulin-dependent who was recently admitted to [facility] from 03/28/21 020 with acute hypoxic respiratory failure secondary to systolic CHF exacerbation with eject ion fraction of 40%, CTA chest negative for PE, troponin was minimally elevated 0.44 treated conservatively with medical therapy discharge to [facility] who went back to [facility] emergency department with worsening shortness of breath [...] home on on Augmentin readmitted on at [facility] and started on Rocephin after sending 2 set of blood cultures which remain negative. We will continue the patient on Rocephin IV while in the hospital then discharge home on Augmentin Anemia secondary to iron deficiency Plan start the patient on IV iron, guaiac stools pending Hypomagnesemia repleted DVT prophylaxis on heparin Ady Yin MD 04/07/2019 Brayden Ashley MD - 04/07/2019 11:06 AM PSTFormatting of this note might be different from trina allen original. [facility] Service: Cardiology Progress Note Hospital Day: LOS: [...] Andrés Novoa RN - 04/06/2019 10:15 AM [facility] Service: Wound/Ostomy Care Progress Note Wound care [...] | | | | | right foot ([facility]) | 04/20/2019 until | | | | | | 04/20/2020 | + +---------+--------+ + + | C-Reactive Protein | Lab | Routin | Other | Weekly for 6 | | | | e | osteomyelitis of | Occurrences starting | | | | | right foot ([facility]) | 04/20/2019 until | | | | | | 04/20/2020 | + +---------+--------+ + + | Sedimentation Rate | Lab | Routin | Other | Weekly for 6 | | | | e | osteomyelitis of | Occurrences starting | | | | | right foot ([facility]) | 04/20/2019 until | | | | [...] | | | | | PST | ([facility]) Peripheral | | | | | | vascular disease | | | | | | ([facility]) Other | | | | | | osteomyelitis of | | | | | | right foot ([facility]) | | | | | | Essential | | | | | | hypertension Acute | | | | | | left hemiparesis | | | | | | ([facility]) | | + +--------+ + + + [...] | | | | | performed at [facility] [place] [place];[facility] | | | | | | [facility];[place], [place] | | | | | | [address] | | | | + + + + + + + + | Specimen | + + | Blood | + + + + + + + | Performing | Address | City/State/Zipcode | Phone Number | | Organization | | | | + + + + + | [facility] | [address] | [place] [address] | [phone] | + + + + + POC Glucose (04/21/2019 11:54 AM PST) + + + + + + | Component | Value | Ref Range | Performed | Pathologist | | | | | At | Signature | + + + + + + | Glucose, | 164 (H)Comment: Testing | 65 - 99 mg/dL | [facility] | | | POC | performed at [facility] [place] [place];[address] | | LABORATORY | | | | [address];[place], [place] | | | | | | [address] | | | | + + + + + + + + | Specimen | + + | | + + + + + + + | Performing | Address | City/State/Zipcode | Phone Number | | Organization | | | | + + + + + | [facility] | [address] | [place] [address] | [phone] | + + + + + POC Glucose (04/21/2019 8:10 AM PST) + + + + + + | Component | Value | Ref Range | Performed | Pathologist | | | | | At | Signature | + + + + + + | Glucose, | 131 (H)Comment: Testing | 65 - 99 mg/dL | [facility] | | | POC | performed at [facility] [place] [place];[address] | | LABORATORY | | | | [address];[place] | | | | | | [address] | | | | + + + + + + + + | Specimen | + + | | + + + + + + + | Performing | Address | City/State/Zipcode | Phone Number | | Organization | | | | + + + + + | [facility] | [address] | [place] [address] | [phone] | + + + + + POC [...] | | | POC | performed at [facility] [place] [place];[address] | | LABORATORY | | | | [address];[place], [place] | | | | | | [address] | | | | + + + + + + + + | Specimen | + + | | + + + + + + + | Performing | Address | City/State/Zipcode | Phone Number | | Organization | | | | + + + + + | [facility] | [address] | [place] [address] | [phone] | + + + + + POC [...] | | | POC | performed at [facility] [place] [place];[address] | | LABORATORY | | | | [address];[place] | | | | | | [address] | | | | + + + + + + + + | Specimen | + + | | + + + + + + + | Performing | Address | City/State/Zipcode | Phone Number | | Organization | | | | + + + + + | [facility] | [address] | [place] [address] | [phone] | + + + + + POC [...] | | | POC | performed at [facility] [place] [place];[address] | | LABORATORY | | | | [address];[place], [place] | | | | | | [address] | | | | + + + + + + + + | Specimen | + + | | + + + + + + + | Performing | Address | City/State/Zipcode | Phone Number | | Organization | | | | + + + + + | [facility] | [address] | [place] [address] | [phone] | + + + + + POC [...] | | | POC | performed at [facility] [place] [place];[address] | | LABORATORY | | | | [address];[place], [place] | | | | | | [address] | | | | + + + + + + + + | Specimen | + + | | + + + + + + + | Performing | Address | City/State/Zipcode | Phone Number | | Organization | | | | + + + + + | [facility] | [address] | [place] [address] | [phone] | + + + + + POC Glucose (04/20/2019 12:44 PM PST) + + + + + + | Component | Value | Ref Range | Performed | Pathologist | | | | | At | Signature | + + + + + + | Glucose, | 273 (H)Comment: Testing | 65 - 99 mg/dL | [facility] | | | POC | performed at [facility] [place] [place];[address] | | LABORATORY | | | | [address];[place], [place] | | | | | | [address] | | | | + + + + + + + + | Specimen | + + | | + + + + + + + | Performing | Address | City/State/Zipcode | Phone Number | | Organization | | | | + + + + + | [facility] | [address] | [place] [address] | [phone] | + + + + + Vancomycin Level (04/20/2019 12:39 PM PST) + + + + + + | Component | Value | Ref Range | Performed | Pathologist | | | | | At | Signature | + + + + + + | Vancomycin | 18.3Comment: Testing | ug/mL | [facility] | | | Random, | performed at [facility] [place] [place];[address] | | LABORATORY | | | Serum | [address];[place] | | | | | | [address] | | | | + + + + + + + + | Specimen | + + | Blood | + + + + + + + | Performing | Address | City/State/Zipcode | Phone Number | | Organization | | | | + + + + + | [facility] | [address] | [place] [address] | [phone] | + + + + + POC [...] | | | POC | performed at [facility] [place] [place];[address] | | LABORATORY | | | | [address];[place] | | | | | | [address] | | | | + + + + + + + + | Specimen | + + | | + + + + + + + | Performing | Address | City/State/Zipcode | Phone Number | | Organization | | | | + + + + + | [facility] | [address] | [place] [address] | [phone] | + + + + + POC Glucose (04/20/2019 8:16 AM PST) + + + + + + | Component | Value | Ref Range | Performed | Pathologist | | | | | At | Signature | + + + + + + | Glucose, | 300 (H)Comment: Testing | 65 - 99 mg/dL | [facility] | | | POC | performed at [facility] [place] [place];[address] | | LABORATORY | | | | [address];[place] | | | | | | [address] | | | | + + + + + + + + | Specimen | + + | | + + + + + + + | Performing | Address | City/State/Zipcode | Phone Number | | Organization | | | | + + + + + | [facility] | [address] | [place] [address] | [phone] | + + + + + POC [...] | | | POC | performed at [facility] [place] [place];[address] | | LABORATORY | | | | [address];[place], [place] | | | | | | [address] | | | | + + + + + + + + | Specimen | + + | | + + + + + + + | Performing | Address | City/State/Zipcode | Phone Number | | Organization | | | | + + + + + | [facility] | [address] | [place] [address] | [phone] | + + + + + POC [...] | | | POC | performed at [facility] [place] [place];[address] | | LABORATORY | | | | [address];[place] | | | | | | [address] | | | | + + + + + + + + | Specimen | + + | | + + + + + + + | Performing | Address | City/State/Zipcode | Phone Number | | Organization | | | | + + + + + | [facility] | [address] | [place] [address] | [phone] | + + + + + POC Glucose (04/19/2019 12:44 PM PST) + + + + + + | Component | Value | Ref Range | Performed | Pathologist | | | | | At | Signature | + + + + + + | Glucose, | 209 (H)Comment: Testing | 65 - 99 mg/dL | [facility] | | | POC | performed at [facility] [place] [place];[address] | | LABORATORY | | | | [address];[place], [place] | | | | | | [address] | | | | + + + + + + + + | Specimen | + + | | + + + + + + + | Performing | Address | City/State/Zipcode | Phone Number | | Organization | | | | + + + + + | [facility] | [address] | [place] [address] | [phone] | + + + + + POC [...] | | | POC | performed at [facility] [place] [place];[address] | | LABORATORY | | | | [address];[place], [place] | | | | | | [address] | | | | + + + + + + + + | Specimen | + + | | + + + + + + + | Performing | Address | City/State/Zipcode | Phone Number | | Organization | | | | + + + + + | [facility] | [address] | [place] [address] | [phone] | + + + + + Basic [...] | >60Comment: GFR <60: | >60 | [facility] | | | GFR | [...] | | | MDRD [facility] traceable | | | | | | equation.Testing | | | | | | performed at [facility], [address] | | | | | | [facility], | | | | | | [place] [address] | | | | + + + + + + + + | Specimen | + + | Blood | + + + + + + + | Performing | Address | City/State/Zipcode | Phone Number | | Organization | | | | + + + + + | [facility] | [address] | [place] [address] | [phone] | + + + + + CBC [...] | | | | | performed at [facility], [address] | | | | | | [facility], | | | | | | [place] [address] | | | | | |MICRO | | | | | |NORMAL PLT MORPH | | | | | |Testing performed at [facility], [address] [facility], [place] [address] | | | | | | | | | | + + +---- + + + + + | Specimen | + + | Blood | + + + + + + + | Performing | Address | City/State/Zipcode | Phone Number | | Organization | | | | + + + + + | [facility] | [address] | [place] [address] | [phone] | + + + + + POC [...] | | | POC | performed at [facility] [place] [place];[address] | | LABORATORY | | | | [address];[place] | | | | | | [address] | | | | + + + + + + + + | Specimen | + + | | + + + + + + + | Performing | Address | City/State/Zipcode | Phone Number | | Organization | | | | + + + + + | [facility] | [address] | [place] [address] | [phone] | + + + + + POC Glucose (04/18/2019 9:02 PM PST) + + + + + + | Component | Value | Ref Range | Performed | Pathologist | | | | | At | Signature | + + + + + + | Glucose, | 295 (H)Comment: Testing | 65 - 99 mg/dL | [facility] | | | POC | performed at [facility] [place] [place];[address] | | LABORATORY | | | | [address];[place] | | | | | | [address] | | | | + + + + + + + + | Specimen | + + | | + + + + + + + | Performing | Address | City/State/Zipcode | Phone Number | | Organization | | | | + + + + + | [facility] | [address] | [place] [address] | [phone] | + + + + + POC Glucose (04/18/2019 8:01 PM PST) + + + + + + | Component | Value | Ref Range | Performed | Pathologist | | | | | At | Signature | + + + + + + | Glucose, | 245 (H)Comment: Testing | 65 - 99 mg/dL | [facility] | | | POC | performed at [facility] [place] [place];[address] | | LABORATORY | | | | [address];[place] | | | | | | [address] | | | | + + + + + + + + | Specimen | + + | | + + + + + + + | Performing | Address | City/State/Zipcode | Phone Number | | Organization | | | | + + + + + | [facility] | [address] | [place] [address] | [phone] | + + + + + POC [...] | | | POC | performed at [facility] [place] [place];[address] | | LABORATORY | | | | [address];[place], [place] | | | | | | [address] | | | | + + + + + + + + | Specimen | + + | | + + + + + + + | Performing | Address | City/State/Zipcode | Phone Number | | Organization | | | | + + + + + | [facility] | [address] | [place] [address] | [phone] | + + + + + POC [...] | | | POC | performed at [facility] [place] [place];[address] | | LABORATORY | | | | [address];[place] | | | | | | [address] | | | | + + + + + + + + | Specimen | + + | | + + + + + + + | Performing | Address | City/State/Zipcode | Phone Number | | Organization | | | | + + + + + | [facility] | [address] | [place] [address] | [phone] | + + + + + NM [...] | | | POC | performed at [facility] [place] [place];[address] | | LABORATORY | | | | [address];[place], [place] | | | | | | [address] | | | | + + + + + + + + | Specimen | + + | | + + + + + + + | Performing | Address | City/State/Zipcode | Phone Number | | Organization | | | | + + + + + | [facility] | [address] | [place] [address] | [phone] | + + + + + Basic [...] 8.0 (L) | 8.5 - 10.5 | [facility] | | | | | mg/dL | LABORATORY | | + + + + + + | Estimated | >60Comment: GFR <60: | >60 | [facility] | | | GFR | [...] | | | | | performed at [facility] [place] [place];[facility] | | | | | | [facility];[place], [place] | | | | | | [address] | | | | + + + + + + + + | Specimen | + + | Blood | + + + + + + + | Performing | Address | City/State/Zipcode | Phone Number | | Organization | | | | + + + + + | [facility] | [address] | [place] [address] | [phone] | + + + + + CBC [...] | | | Estimate | performed at [facility] [place];[address] | | LABORATORY | | | | [address];[place] | | | | | | [address] | | | | + + + + + + + + | Specimen | + + | Blood | + + + + + + + | Performing | Address | City/State/Zipcode | Phone Number | | Organization | | | | + + + + + | [facility] | [address] | [place] [address] | [phone] | + + + + + POC [...] | | | POC | performed at [facility] [place];[address] | | LABORATORY | | | | [address];[place], [place] | | | | | | [address] | | | | + + + + + + + + | Specimen | + + | | + + + + + + + | Performing | Address | City/State/Zipcode | Phone Number | | Organization | | | | + + + + + | [facility] | [address] | [place] [address] | [phone] | + + + + + POC [...] | | | POC | performed at [facility] [place] [place];[address] | | LABORATORY | | | | [address];[place] | | | | | | [address] | | | | + + + + + + + + | Specimen | + + | | + + + + + + + | Performing | Address | City/State/Zipcode | Phone Number | | Organization | | | | + + + + + | [facility] | [address] | [place] [address] | [phone] | + + + + + Vancomycin, [...] | | | | | performed at [facility] [place];[facility] | | | | | | [facility];[place], [place] | | | | | | [address] | | | | + + + + + + + + | Specimen | + + | Blood | + + + + + + + | Performing | Address | City/State/Zipcode | Phone Number | | Organization | | | | + + + + + | [facility] | [address] | [place] [address] | [phone] | + + + + + POC Glucose (04/17/2019 12:05 PM PST) + + + + + + | Component | Value | Ref Range | Performed | Pathologist | | | | | At | Signature | + + + + + + | Glucose, | 200 (H)Comment: Testing | 65 - 99 mg/dL | [facility] | | | POC | performed at [facility] [place] [place];[address] | | LABORATORY | | | | [address];[place] | | | | | | [address] | | | | + + + + + + + + | Specimen | + + | | + + + + + + + | Performing | Address | City/State/Zipcode | Phone Number | | Organization | | | | + + + + + | [facility] | [address] | [place] [address] | [phone] | + + + + + POC [...] | | | POC | performed at [facility] [place] [place];[address] | | LABORATORY | | | | [address];[place] | | | | | | [address] | | | | + + + + + + + + | Specimen | + + | | + + + + + + + | Performing | Address | City/State/Zipcode | Phone Number | | Organization | | | | + + + + + | [facility] | [address] | [place] [address] | [phone] | + + + + + POC [...] | | | POC | performed at [facility] [place];[address] | | LABORATORY | | | | [address];[place], [place] | | | | | | [address] | | | | + + + + + + + + | Specimen | + + | | + + + + + + + | Performing | Address | City/State/Zipcode | Phone Number | | Organization | | | | + + + + + | [facility] | [address] | [place] [address] | [phone] | + + + + + Basic [...] | >60Comment: GFR <60: | >60 | [facility] | | | GFR | [...] | | | | | performed at [facility], [address] | | | | | | [facility], | | | | | | [place] [address] | | | | + + + + + + + + | Specimen | + + | Blood | + + + + + + + | Performing | Address | City/State/Zipcode | Phone Number | | Organization | | | | + + + + + | [facility] | [address] | [place] [address] | [phone] | + + + + + CBC [...] | | | | | performed at [facility], [facility] [address] | | | | | | [facility], | | | | | | [place] [address] | | | | | |MICRO | | | | | |NORMAL PLT MORPH | | | | | |Testing performed at [facility], [facility] [place] [address] | | | | | | | | | | + + +---- + + + + + | Specimen | + + | Blood | + + + + + + + | Performing | Address | City/State/Zipcode | Phone Number | | Organization | | | | + + + + + | [facility] | [address] | [place] [address] | [phone] | + + + + + POC Glucose (04/16/2019 8:57 PM PST) + + + + + + | Component | Value | Ref Range | Performed | Pathologist | | | | | At | Signature | + + + + + + | Glucose, | 96Comment: Testing | 65 - 99 mg/dL | [facility] | | | POC | performed at [facility] [place];[address] | | LABORATORY | | | | [address];[place] | | | | | | [address] | | | | + + + + + + + + | Specimen | + + | | + + + + + + + | Performing | Address | City/State/Zipcode | Phone Number | | Organization | | | | + + + + + | [facility] | [address] | [place] [address] | [phone] | + + + + + POC [...] | | | POC | performed at [facility] [place];[address] | | LABORATORY | | | | [address];[place], [place] | | | | | | [address] | | | | + + + + + + + + | Specimen | + + | | + + + + + + + | Performing | Address | City/State/Zipcode | Phone Number | | Organization | | | | + + + + + | [facility] | [address] | [place] [address] | [phone] | + + + + + POC [...] | | | POC | performed at [facility] [place];[address] | | LABORATORY | | | | [address];[place], [place] | | | | | | [address] | | | | + + + + + + + + | Specimen | + + | | + + + + + + + | Performing | Address | City/State/Zipcode | Phone Number | | Organization | | | | + + + + + | [facility] | [address] | [place] [address] | [phone] | + + + + + POC [...] | | | POC | performed at [facility] [place] [place];[address] | | LABORATORY | | | | [address];[place], [place] | | | | | | [address] | | | | + + + + + + + + | Specimen | + + | | + + + + + + + | Performing | Address | City/State/Zipcode | Phone Number | | Organization | | | | + + + + + | [facility] | [address] | [place] [address] | [phone] | + + + + + CBC [...] | | | | | performed at [facility], [address] | | | | | | [facility], | | | | | | [place] [address] | | | | | |MICRO | | | | | |NORMAL PLT MORPH | | | | | |Testing performed at [facility], [address] [facility], [place] [address] | | | | | | | | | | + + +---- + + + + + | Specimen | + + | Blood | + + + + + + + | Performing | Address | City/State/Zipcode | Phone Number | | Organization | | | | + + + + + | [facility] | [address] | [place] [address] | [phone] | + + + + + Basic [...] W | | | | | | [facility], | | | | | | [place] [address] | | | | + + + + + + + + | Specimen | + + | Blood | + + + + + + + | Performing | Address | City/State/Zipcode | Phone Number | | Organization | | | | + + + + + | [facility] | [address] | [place] [address] | [phone] | + + + + + POC Glucose (04/15/2019 9:03 PM PST) + + + + + + | Component | Value | Ref Range | Performed | Pathologist | | | | | At | Signature | + + + + + + | Glucose, | 171 (H)Comment: Testing | 65 - 99 mg/dL | [facility] | | | POC | performed at [facility] [place] [place];[address] | | LABORATORY | | | | [address];[place], [place] | | | | | | [address] | | | | + + + + + + + + | Specimen | + + | | + + + + + + + | Performing | Address | City/State/Zipcode | Phone Number | | Organization | | | | + + + + + | [facility] | [address] | [place] [address] | [phone] | + + + + + POC [...] | | | POC | performed at [facility] [place] [place];[address] | | LABORATORY | | | | [address];[place], [place] | | | | | | [address] | | | | + + + + + + + + | Specimen | + + | | + + + + + + + | Performing | Address | City/State/Zipcode | Phone Number | | Organization | | | | + + + + + | [facility] | [address] | [place] [address] | [phone] | + + + + + POC Glucose (04/15/2019 1:19 PM PST) + + + + + + | Component | Value | Ref Range | Performed | Pathologist | | | | | At | Signature | + + + + + + | Glucose, | 227 (H)Comment: Testing | 65 - 99 mg/dL | [facility] | | | POC | performed at [facility] [place] [place];[address] | | LABORATORY | | | | [address];[place], [place] | | | | | | [address] | | | | + + + + + + + + | Specimen | + + | | + + + + + + + | Performing | Address | City/State/Zipcode | Phone Number | | Organization | | | | + + + + + | [facility] | [address] | [place] [address] | [phone] | + + + + + Type [...] + + + | BB BAND | [id number] | | [facility] | | | | | | LABORATORY | | + + + + + + | UNIT # | [id number] | | [facility] | | | | [...] + + + | UNIT # | [id number] | | [facility] | | | | [...] + + + | UNIT # | [id number] | | [facility] | | | | [...] | | | RESULT | performed at [facility] [place] [place];[address] | | LABORATORY | | | | [address];[place] | | | | | | [address] | | | | + + + + + + + + | Specimen | + + | Blood | + + + + + + + | Performing | Address | City/State/Zipcode | Phone Number | | Organization | | | | + + + + + | [facility] | [address] | [place] [address] | [phone] | + + + + + Red [...] | ORDER RECEIVED IN BLOOD | | [facility] | | | COMMENT | BANK. | | LABORATORY | | + + + + + + | BLOOD BANK | Testing performed at | | [facility] | | | COMMENT | [facility] [place] [place];[address] | | LABORATORY | | | | [address];[place] [address] | | | | + + + + + + + + | Specimen | + + | | + + + + + + + | Performing | Address | City/State/Zipcode | Phone Number | | Organization | | | | + + + + + | [facility] | [address] | [place] [address] | [phone] | + + + + + POC [...] | | | POC | performed at [facility] [place] [place];[address] | | LABORATORY | | | | [address];[place], [place] | | | | | | [address] | | | | + + + + + + + + | Specimen | + + | | + + + + + + + | Performing | Address | City/State/Zipcode | Phone Number | | Organization | | | | + + + + + | [facility] | [address] | [place] [address] | [phone] | + + + + + Vancomycin, [...] | | | | | performed at [facility] [place] [place];[address] | | | | | | [address];[place] | | | | | | [address] | | | | + + + + + + + + | Specimen | + + | Blood | + + + + + + + | Performing | Address | City/State/Zipcode | Phone Number | | Organization | | | | + + + + + | [facility] | [address] | [place] [address] | [phone] | + + + + + CBC [...] | | | Estimate | performed at [facility] [place] [place];[facility] | | LABORATORY | | | | [address];[place] | | | | | | [address] | | | | + + + + + + + + | Specimen | + + | Blood | + + + + + + + | Performing | Address | City/State/Zipcode | Phone Number | | Organization | | | | + + + + + | [facility] | [address] | [place] [address] | [phone] | + + + + + Basic [...] 8.1 (L) | 8.5 - 10.5 | [facility] | | | | | mg/dL | LABORATORY | | + + + + + + | Estimated | >60Comment: GFR <60: | >60 | [facility] | | | GFR | [...] | | | | | | MDRD IDNY traceable | | | | | | equation.Testing | | | | | | performed at [facility] [place] [place];[address] | | | | | | [facility];[place], [place] | | | | | | [address] | | | | + + + + + + + + | Specimen | + + | Blood | + + + + + + + | Performing | Address | City/State/Zipcode | Phone Number | | Organization | | | | + + + + + | [facility] | [address] | [place] [address] | [phone] | + + + + + POC [...] | | | POC | performed at [facility] [place] [place];[address] | | LABORATORY | | | | [address];[place] | | | | | | [address] | | | | + + + + + + + + | Specimen | + + | | + + + + + + + | Performing | Address | City/State/Zipcode | Phone Number | | Organization | | | | + + + + + | [facility] | [address] [facility] | [place] [address] | [phone] | + + + + + POC [...] | | | POC | performed at [facility] [place] [place];[address] | | LABORATORY | | | | [address];[place], [place] | | | | | | [address] | | | | + + + + + + + + | Specimen | + + | | + + + + + + + | Performing | Address | City/State/Zipcode | Phone Number | | Organization | | | | + + + + + | [facility] | [address] | [place] [address] | [phone] | + + + + + POC [...] | | | POC | performed at [facility] [place] [place];[address] | | LABORATORY | | | | [address];[place] | | | | | | [address] | | | | + + + + + + + + | Specimen | + + | | + + + + + + + | Performing | Address | City/State/Zipcode | Phone Number | | Organization | | | | + + + + + | [facility] | [address] | [place] [address] | [phone] | + + + + + ECHO [...] + | Performing | Address | City/State/[facility] | Phone Number | | Organization [...] | | | POC | performed at [facility] [place] [place];[address] | | LABORATORY | | | | [address];[place] | | | | | | [address] | | | | + + + + + + + + | Specimen | + + | | + + + + + + + | Performing | Address | City/State/Zipcode | Phone Number | | Organization | | | | + + + + + | [facility] | [address] | [place] [address] | [phone] | + + + + + B Type Natriuretic Peptide (04/14/2019 6:29 AM PST) + + + + + + | Component | Value | Ref Range | Performed | Pathologist | | | | | At | Signature | + + + + + + | BNP | 587.58 (H)Comment: | 0 - 100 pg/mL | [facility] | | | | Testing performed at | | LABORATORY | | | | [facility] [place] [place];[address] | [address] | | [address];[place] [address] | | | | + + + + + + + + | Specimen | + + | | + + + + + + + | Performing | Address | City/State/Zipcode | Phone Number | | Organization | | | | + + + + + | [facility] | [address] | [place] [address] | [phone] | + + + + + CBC [...] | | | Estimate | performed at [facility] [place] [place];[facility] | | LABORATORY | | | | [address];[place], [place] | | | | | | [address] | | | | + + + + + + + + | Specimen | + + | | + + + + + + + | Performing | Address | City/State/Zipcode | Phone Number | | Organization | | | | + + + + + | [facility] | [address] | [place] [address] | [phone] | + + + + + Troponin [...] at | | | | | | [facility] [place] [place];[address] | | | | | | [address];[place] [address] | | | | + + + + + + + + | Specimen | + + | Blood | + + + + + + + | Performing | Address | City/State/Zipcode | Phone Number | | Organization | | | | + + + + + | [facility] | [address] | [place] [address] | [phone] | + + + + + Basic [...] | | | MDRD [facility] traceable | | | | | | equation.Testing | | | | | | performed at [facility] [place] [place];[address] | | | | | | [facility];[place], [place] | | | | | | [address] | | | | + + + + + + + + | Specimen | + + | Blood | + + + + + + + | Performing | Address | City/State/Zipcode | Phone Number | | Organization | | | | + + + + + | [facility] | [address] | [place] [address] | [phone] | + + + + + Vancomycin Level (04/14/2019 4:53 AM PST) + + + + + + | Component | Value | Ref Range | Performed | Pathologist | | | | | At | Signature | + + + + + + | Vancomycin | 20.6Comment: Testing | ug/mL | [facility] | | | Random, | performed at [facility] [place] [place];[address] | | LABORATORY | | | Serum | [facility];[place], [place] | | | | | | [address] | | | | + + + + + + + + | Specimen | + + | Blood | + + + + + + + | Performing | Address | City/State/Zipcode | Phone Number | | Organization | | | | + + + + + | [facility] | [address] | [place] [address] | [phone] | + + + + + POC [...] | | | POC | performed at [facility] [place] [place];[address] | | LABORATORY | | | | [address];[place] | | | | | | [address] | | | | + + + + + + + + | Specimen | + + | | + + + + + + + | Performing | Address | City/State/Zipcode | Phone Number | | Organization | | | | + + + + + | [facility] | [address] | [place] [address] | [phone] | + + + + + Troponin I (04/14/2019 1:19 AM PST) + + + + + + | Component | Value | Ref Range | Performed | Pathologist | | | | | At | Signature | + + + + + + | Troponin I | 0.015Comment: 0.04 | 0.00 - 0.04 | [facility] | | | | ng/mL [...] at | | | | | | [facility] [place] [place];[address] [facility] | | | | | | Blvd;[place] [address] | | | | + + + + + + + + | Specimen | + + | Blood | + + + + + + + | Performing | Address | City/State/Zipcode | Phone Number | | Organization | | | | + + + + + | [facility] | [address] | [place] [address] | [phone] | + + + + + ECG [...] | | | POC | performed at [facility] [place] [place];[address] | | LABORATORY | | | | [address];[place] | | | | | | [address] | | | | + + + + + + + + | Specimen | + + | | + + + + + + + | Performing | Address | City/State/Zipcode | Phone Number | | Organization | | | | + + + + + | [facility] | [address] | [place] [address] | [phone] | + + + + + POC Glucose (04/13/2019 4:19 PM PST) + + + + + + | Component | Value | Ref Range | Performed | Pathologist | | | | | At | Signature | + + + + + + | Glucose, | 109 (H)Comment: Testing | 65 - 99 mg/dL | [facility] | | | POC | performed at [facility] [place] [place];[address] | | LABORATORY | | | | [address];[place] | | | | | | [address] | | | | + + + + + + + + | Specimen | + + | | + + + + + + + | Performing | Address | City/State/Zipcode | Phone Number | | Organization | | | | + + + + + | [facility] | [address] | [place] [address] | [phone] | + + + + + XR [...] + + | Performing | Address | City/State[facility] | Phone Number | | Organization | [...] catheterization with right leg runoff4. Right SFA AUTOMATIC PINSETTER MECHANIC | | | crossing and atherectomy using Bard 14 S crossing catheter SURGEON: | | | Simba Cheng MD LVN HOME HEALTH: None ANESTHESIA: Moderate sedation and local | [...] | | identified and brought to the Clam Treader. The patient was placed supine | | [...] sized to a 4 | | | Singaporean sheath. A Omni flush catheter was then [...] inserted over the catheter and the 4 Singaporean sheath was | | | removed. A 7 Singaporean destination sheath was then inserted over the [...] | | | POC | performed at [facility] [place] [place];[address] | | LABORATORY | | | | [address];[place] | | | | | | [address] | | | | + + + + + + + + | Specimen | + + | | + + + + + + + | Performing | Address | City/State/Zipcode | Phone Number | | Organization | | | | + + + + + | [facility] | [address] | [place] [address] | [phone] | + + + + + POC Glucose (04/13/2019 7:59 AM PST) + + + + + + | Component | Value | Ref Range | Performed | Pathologist | | | | | At | Signature | + + + + + + | Glucose, | 124 (H)Comment: Testing | 65 - 99 mg/dL | [facility] | | | POC | performed at [facility] [place] [place];[address] | | LABORATORY | | | | [address];[place] | | | | | | [address] | | | | + + + + + + + + | Specimen | + + | | + + + + + + + | Performing | Address | City/State/Zipcode | Phone Number | | Organization | | | | + + + + + | [facility] | [address] | [place] [address] | [phone] | + + + + + Basic [...] | | | | | performed at [facility], [address] | | | | | | [address], | | | | | | [place] [address] | | | | + + + + + + + + | Specimen | + + | Blood | + + + + + + + | Performing | Address | City/State/Zipcode | Phone Number | | Organization | | | | + + + + + | [facility] | [address] | [place] [address] | [phone] | + + + + + CBC [...] | | | | | performed at [facility], [facility] [address] | | | | | | [facility], | | | | | | [place] [address] | | | | | |MICRO | | | | | |NORMAL PLT MORPH | | | | | |Testing performed at [facility], [facility] [place] [address] | | | | | | | | | | + + +---- + + + + + | Specimen | + + | Blood | + + + + + + + | Performing | Address | City/State/Zipcode | Phone Number | | Organization | | | | + + + + + | [facility] | [address] | [place] [address] | [phone] | + + + + + POC Glucose (04/13/2019 3:30 AM PST) + + + + + + | Component | Value | Ref Range | Performed | Pathologist | | | | | At | Signature | + + + + + + | Glucose, | 147 (H)Comment: Testing | 65 - 99 mg/dL | [facility] | | | POC | performed at [facility] [place];[address] | | LABORATORY | | | | [address];[place], [place] | | | | | | [address] | | | | + + + + + + + + | Specimen | + + | | + + + + + + + | Performing | Address | City/State/Zipcode | Phone Number | | Organization | | | | + + + + + | [facility] | [address] | [place] [address] | [phone] | + + + + + POC [...] | | | POC | performed at [facility] [place] [place];[address] | | LABORATORY | | | | [address];[place], [place] | | | | | | [address] | | | | + + + + + + + + | Specimen | + + | | + + + + + + + | Performing | Address | City/State/Zipcode | Phone Number | | Organization | | | | + + + + + | [facility] | [address] | [place] [address] | [phone] | + + + + + POC Glucose (04/12/2019 4:28 PM PST) + + + + + + | Component | Value | Ref Range | Performed | Pathologist | | | | | At | Signature | + + + + + + | Glucose, | 211 (H)Comment: Testing | 65 - 99 mg/dL | [facility] | | | POC | performed at [facility] [place] [place];[address] | | LABORATORY | | | | [address];[place] | | | | | | [address] | | | | + + + + + + + + | Specimen | + + | | + + + + + + + | Performing | Address | City/State/Zipcode | Phone Number | | Organization | | | | + + + + + | [facility] | [address] | [place] [address] | [phone] | + + + + + POC Glucose (04/12/2019 11:53 AM PST) + + + + + + | Component | Value | Ref Range | Performed | Pathologist | | | | | At | Signature | + + + + + + | Glucose, | 162 (H)Comment: Testing | 65 - 99 mg/dL | [facility] | | | POC | performed at [facility] [place];[address] | | LABORATORY | | | | [address];[place], [place] | | | | | | [address] | | | | + + + + + + + + | Specimen | + + | | + + + + + + + | Performing | Address | City/State/Zipcode | Phone Number | | Organization | | | | + + + + + | [facility] | [address] | [place] [address] | [phone] | + + + + + POC [...] | | | POC | performed at [facility] [place];[address] | | LABORATORY | | | | [address];[place], [place] | | | | | | [address] | | | | + + + + + + + + | Specimen | + + | | + + + + + + + | Performing | Address | City/State/Zipcode | Phone Number | | Organization | | | | + + + + + | [facility] | [address] | [place] [address] | [phone] | + + + + + Basic [...] | >60Comment: GFR <60: | >60 | [facility] | | | GFR | [...] | | | | | | MDRD IDNY traceable | | | | | | equation.Testing | | | | | | performed at [facility], [address] | | | | | | [facility], | | | | | | [place] [address] | | | | + + + + + + + + | Specimen | + + | Blood | + + + + + + + | Performing | Address | City/State/Zipcode | Phone Number | | Organization | | | | + + + + + | [facility] | [address] | [place] [address] | [phone] | + + + + + CBC [...] | | | | | performed at [facility], [facility] [address] | | | | | | [facility], | | | | | | [place] [address] | | | | | |MICRO | | | | | |NORMAL PLT MORPH | | | | | |Testing performed at [facility], [facility] [place] [address] | | | | | | | | | | + + +---- + + + + + | Specimen | + + | Blood | + + + + + + + | Performing | Address | City/State/Zipcode | Phone Number | | Organization | | | | + + + + + | [facility] | [address] | [place] [address] | [phone] | + + + + + POC Glucose (04/11/2019 9:20 PM PST) + + + + + + | Component | Value | Ref Range | Performed | Pathologist | | | | | At | Signature | + + + + + + | Glucose, | 199 (H)Comment: Testing | 65 - 99 mg/dL | [facility] | | | POC | performed at [facility] [place] [place];[address] | | LABORATORY | | | | [address];[place] | | | | | | [address] | | | | + + + + + + + + | Specimen | + + | | + + + + + + + | Performing | Address | City/State/Zipcode | Phone Number | | Organization | | | | + + + + + | [facility] | [address] | [place] [address] | [phone] | + + + + + POC [...] | | | POC | performed at [facility] [place] [place];[address] | | LABORATORY | | | | [address];[place] | | | | | | [address] | | | | + + + + + + + + | Specimen | + + | | + + + + + + + | Performing | Address | City/State/Zipcode | Phone Number | | Organization | | | | + + + + + | [facility] | [address] | [place] [address] | [phone] | + + + + + POC [...] | | | POC | performed at [facility] [place];[address] | | LABORATORY | | | | [address];[place] | | | | | | [address] | | | | + + + + + + + + | Specimen | + + | | + + + + + + + | Performing | Address | City/State/Zipcode | Phone Number | | Organization | | | | + + + + + | [facility] | [address] | [place] [address] | [phone] | + + + + + IR [...] x 150 mm | | | angioplasty [id number]. Left SFA stenting using 7 x 120 mm | | | self-expanding stent SURGEON: Simba Cheng MD LVN HOME HEALTH: None ANESTHESIA: | | | Moderate sedation [...] | | identified and brought to the Clam Treader. The patient was placed supine | | [...] sized to a 4 | | | Singaporean sheath. A Omni flush catheter was then [...] inserted over the catheter and the 4 Singaporean sheath was | | | removed. A 7 Singaporean destination sheath was then inserted over the [...] using a | | | Glidewire and Bruce catheter. A 0.009 wire was then passed [...] crossed using a | | |Glidewire and Bruce catheter. A 0.009 wire was then passed [...] | | | POC | performed at [facility] [place];[address] | | LABORATORY | | | | [address];[place], [place] | | | | | | [address] | | | | + + + + + + + + | Specimen | + + | | + + + + + + + | Performing | Address | City/State/Zipcode | Phone Number | | Organization | | | | + + + + + | [facility] | [address] | [place] [address] | [phone] | + + + + + B Type Natriuretic Peptide (04/11/2019 5:48 AM PST) + + + + + + | Component | Value | Ref Range | Performed | Pathologist | | | | | At | Signature | + + + + + + | BNP | 220.45 (H)Comment: | 0 - 100 pg/mL | [facility] | | | | Testing performed at | | LABORATORY | | | | [facility] [place];[address];[place] [address] | | | | + + + + + + + + | Specimen | + + | Blood | + + + + + + + | Performing | Address | City/State/Zipcode | Phone Number | | Organization | | | | + + + + + | [facility] | [address] | [place] [address] | [phone] | + + + + + Basic [...] | | | | | performed at [facility], [address] | | | | | | [address], | | | | | | [place] [address] | | | | + + + + + + + + | Specimen | + + | Blood | + + + + + + + | Performing | Address | City/State/Zipcode | Phone Number | | Organization | | | | + + + + + | [facility] | [address] | [place] [address] | [phone] | + + + + + CBC [...] | | | | | | at [facility], [address] | | | | | | [facility], | | | | | | [place] [address] | | | | | |Testing performed at [facility], [address] [facility], [place] [address] | | | | | | | | | | + + +---- + + + + + | Specimen | + + | Blood | + + + + + + + | Performing | Address | City/State/Zipcode | Phone Number | | Organization | | | | + + + + + | [facility] | [address] | [place] [address] | [phone] | + + + + + POC Glucose (04/10/2019 9:22 PM PST) + + + + + + | Component | Value | Ref Range | Performed | Pathologist | | | | | At | Signature | + + + + + + | Glucose, | 127 (H)Comment: Testing | 65 - 99 mg/dL | [facility] | | | POC | performed at [facility] [place] [place];[address] | LABORATORY | | | [address];[place] | | | | | | [address] | | | | + + + + + + + + | Specimen | + + | | + + + + + + + | Performing | Address | City/State/Zipcode | Phone Number | | Organization | | | | + + + + + | [facility] | [address] | [place] [address] | [phone] | + + + + + POC Glucose (04/10/2019 2:33 PM PST) + + + + + + | Component | Value | Ref Range | Performed | Pathologist | | | | | At | Signature | + + + + + + | Glucose, | 176 (H)Comment: Testing | 65 - 99 mg/dL | [facility] | | | POC | performed at [facility] [place] [place];[address] | | LABORATORY | | | | [address];[place] | | | | | | [address] | | | | + + + + + + + + | Specimen | + + | | + + + + + + + | Performing | Address | City/State/Zipcode | Phone Number | | Organization | | | | + + + + + | [facility] | [address] | [place] [address] | [phone] | + + + + + [place] [...] | | | POC | performed at [facility] [place] [place];[address] | | LABORATORY | | | | [address];[place] | | | | | | [address] | | | | + + + + + + + + | Specimen | + + | | + + + + + + + | Performing | Address | City/State/Zipcode | Phone Number | | Organization | | | | + + + + + | [facility] | [address] | [place] [address] | [phone] | + + + + + CBC [...] | | | | | [place] [address] | | | | + + + + + + + + | Specimen | + + | Blood | + + + + + + + | Performing | Address | City/State/Zipcode | Phone Number | | Organization | | | | + + + + + | [facility] | [address] | [place] [address] | [phone] | + + + + + POC Glucose (04/09/2019 9:57 PM PST) + + + + + + | Component | Value | Ref Range | Performed | Pathologist | | | | | At | Signature | + + + + + + | Glucose, | 151 (H)Comment: Testing | 65 - 99 mg/dL | [facility] | | | POC | performed at [facility] [place] [place];[address] | | LABORATORY | | | | [address];[place] | | | | | | [address] | | | | + + + + + + + + | Specimen | + + | | + + + + + + + | Performing | Address | City/State/Zipcode | Phone Number | | Organization | | | | + + + + + | [facility] | [address] | [place] [address] | [phone] | + + + + + POC [...] | | | POC | performed at [facility] [place] [place];[address] | | LABORATORY | | | | [address];[place], [place] | | | | | | [address] | | | | + + + + + + + + | Specimen | + + | | + + + + + + + | Performing | Address | City/State/Zipcode | Phone Number | | Organization | | | | + + + + + | [facility] | [address] | [place] [address] | [phone] | + + + + + POC [...] | | | POC | performed at [facility] [place] [place];[address] | | LABORATORY | | | | [address];[place] | | | | | | [address] | | | | + + + + + + + + | Specimen | + + | | + + + + + + + | Performing | Address | City/State/Zipcode | Phone Number | | Organization | | | | + + + + + | [facility] | [address] | [place] [address] | [phone] | + + + + + XR Chest AP Portable (04/09/2019 9:02 AM PST) + + | Specimen | + + | | + + + + + | Impressions | Performed At | + + + | Hypoventilatory exam, it would be difficult to exclude an element of | [facility] | | congestive failure. Signed by: Madison Solis, [facility] | | | Sign Date/Time: 04/09/2019 9:25 [...] | | | Urine | performed at [facility], [address] | | LABORATORY | | | | [address], | | | | | | [place] [address] | | | | + + + + + + + + | Specimen | + + | | + + + + + + + | Performing | Address | City/State/Zipcode | Phone Number | | Organization | | | | + + + + + | [facility] | [address] | [place] [address] | [phone] | + + + + + Urinalysis, [...] - 1.030 | [facility] | | | [place], | | | LABORATORY | | | [...] + + + + + | [facility] | [address] | [place] [address] | [phone] | + + + + + Sedimentation Rate (04/09/2019 6:16 AM PST) + + + + + + | Component | Value | Ref Range | Performed | Pathologist | | | | | At | Signature | + + + + + + | ESR | 91 (H)Comment: Testing | 0 - 20 mm/Hr | [facility] | | | | performed at [facility], [address] | | LABORATORY | | | | [address], | | | | | | [place] [address] | | | | + + + + + + + + | Specimen | + + | Blood | + + + + + + + | Performing | Address | City/State/Zipcode | Phone Number | | Organization | | | | + + + + + | [facility] | [address] | [place] [address] | [phone] | + + + + + CBC [...] [facility] | | | | performed at [facility], [address] | | LABORATORY | | | | [address], | | | | | | [place] [address] | | | | + + + + + + + + | Specimen | + + | Blood | + + + + + + + | Performing | Address | City/State/Zipcode | Phone Number | | Organization | | | | + + + + + | [facility] | [address] | [place] [address] | [phone] | + + + + + Comprehensive [...] | | | | | performed at [facility], [address] | | | | | | [facility], | | | | | | [place] [address] | | | | + + + + + + + + | Specimen | + + | Blood | + + + + + + + | Performing | Address | City/State/Zipcode | Phone Number | | Organization | | | | + + + + + | [facility] | [address] | [place] [address] | [phone] | + + + + + POC Glucose (04/08/2019 10:09 PM PST) + + + + + + | Component | Value | Ref Range | Performed | Pathologist | | | | | At | Signature | + + + + + + | Glucose, | 168 (H)Comment: Testing | 65 - 99 mg/dL | [facility] | | | POC | performed at [facility] [place] [place];[address] | | LABORATORY | | | | [address];[place] | | | | | | [address] | | | | + + + + + + + + | Specimen | + + | | + + + + + + + | Performing | Address | City/State/Zipcode | Phone Number | | Organization | | | | + + + + + | [facility] | [address] | [place] [address] | [phone] | + + + + + Fecal Hemoglobin (04/08/2019 7:27 PM PST) + + + + + + | Component | Value | Ref Range | Performed | Pathologist | | | | | At | Signature | + + + + + + | FECAL | NEGATIVEComment: Testing | NEG | [facility] | | | OCCULT BLD | performed at [facility] [place] [place];[address] | | LABORATORY | | | | [address];[place] | | | | | | [address] | | | | + + + + + + + + | Specimen | + + | Stool - Stool | | specimen (specimen) | + + + + + + + | Performing | Address | City/State/Zipcode | Phone Number | | Organization | | | | + + + + + | [facility] | [address] | [place] [address] | [phone] | + + + + + POC Glucose (04/08/2019 6:34 PM PST) + + + + + + | Component | Value | Ref Range | Performed | Pathologist | | | | | At | Signature | + + + + + + | Glucose, | 179 (H)Comment: Testing | 65 - 99 mg/dL | [facility] | | | POC | performed at [facility] [place] [place];[address] | | LABORATORY | | | | [address];[place], [place] | | | | | | [address] | | | | + + + + + + + + | Specimen | + + | | + + + + + + + | Performing | Address | City/State/Zipcode | Phone Number | | Organization | | | | + + + + + | [facility] | [address] | [place] [address] | [phone] | + + + + + XR [...] Testing | 65 - 99 mg/dL | [facility] | | | POC | performed at [facility] [place] [place];[address] | | LABORATORY | | | | [address];[place], [place] | | | | | | [address] | | | | + + + + + + + + | Specimen | + + | | + + + + + + + | Performing | Address | City/State/Zipcode | Phone Number | | Organization | | | | + + + + + | [facility] | [address] | [place] [address] | [phone] | + + + + + XR [...] | | | POC | performed at [facility] [place] [place];[address] | | LABORATORY | | | | [address];[place], [place] | | | | | | [address] | | | | + + + + + + + + | Specimen | + + | | + + + + + + + | Performing | Address | City/State/Zipcode | Phone Number | | Organization | | | | + + + + + | [facility] | [address] | [place] [address] | [phone] | + + + + + B Type Natriuretic Peptide (04/08/2019 5:45 AM PST) + + + + + + | Component | Value | Ref Range | Performed | Pathologist | | | | | At | Signature | + + + + + + | BNP | 580.26 (H)Comment: | 0 - 100 pg/mL | [facility] | | | | Testing performed at | | LABORATORY | | | | [facility] [place] [place];[address] | | | [address];[place] [address] | | | | + + + + + + + + | Specimen | + + | Blood | + + + + + + + | Performing | Address | City/State/Zipcode | Phone Number | | Organization | | | | + + + + + | [facility] | [address] | [place] [address] | [phone] | + + + + + CBC [...] [facility] | | | | performed at [facility], [address] | | LABORATORY | | | | [address], | | | | | | [place] [address] | | | | + + + + + + + + | Specimen | + + | Blood | + + + + + + + | Performing | Address | City/State/Zipcode | Phone Number | | Organization | | | | + + + + + | [facility] | [address] | [place] [address] | [phone] | + + + + + Comprehensive [...] | | | | | performed at [facility], [address] | | | | | | [address], | | | | | | [place] [address] | | | | + + + + + + + + | Specimen | + + | Blood | + + + + + + + | Performing | Address | City/State/Zipcode | Phone Number | | Organization | | | | + + + + + | [facility] | [address] [facility] | [place] [address] | [phone] | + + + + + POC [...] | | | POC | performed at [facility] [place] [place];[address] | | LABORATORY | | | | [address];[place], [place] | | | | | | [address] | | | | + + + + + + + + | Specimen | + + | | + + + + + + + | Performing | Address | City/State/Zipcode | Phone Number | | Organization | | | | + + + + + | [facility] | [address] | [place] [address] | [phone] | + + + + + POC [...] | | | POC | performed at [facility] [place] [place];[address] | | LABORATORY | | | | [address];[place] | | | | | | [address] | | | | + + + + + + + + | Specimen | + + | | + + + + + + + | Performing | Address | City/State/Zipcode | Phone Number | | Organization | | | | + + + + + | [facility] | [address] | [place] [address] | [phone] | + + + + + POC Glucose (04/07/2019 12:40 PM PST) + + + + + + | Component | Value | Ref Range | Performed | Pathologist | | | | | At | Signature | + + + + + + | Glucose, | 252 (H)Comment: Testing | 65 - 99 mg/dL | [facility] | | | POC | performed at [facility] [place] [place];[address] | | LABORATORY | | | | [address];[place], [place] | | | | | | [address] | | | | + + + + + + + + | Specimen | + + | | + + + + + + + | Performing | Address | City/State/Zipcode | Phone Number | | Organization | | | | + + + + + | [facility] | [address] | [place] [address] | [phone] | + + + + + XR [...] Testing | 65 - 99 mg/dL | [facility] | | | POC | performed at [facility] [place] [place];[address] | | LABORATORY | | | | [address];[place] | | | | | | [address] | | | | + + + + + + + + | Specimen | + + | | + + + + + + + | Performing | Address | City/State/Zipcode | Phone Number | | Organization | | | | + + + + + | [facility] | [address] | [place] [address] | [phone] | + + + + + Magnesium (04/07/2019 5:02 AM PST) + + + + + + | Component | Value | Ref Range | Performed | Pathologist | | | | | At | Signature | + + + + + + | Magnesium | 2.1Comment: Testing | 1.7 - 2.4 mg/dL | [facility] | | | | performed at [facility], [address] | | LABORATORY | | | | [address], | | | | | | [place] [address] | | | | + + + + + + + + | Specimen | + + | Blood | + + + + + + + | Performing | Address | City/State/Zipcode | Phone Number | | Organization | | | | + + + + + | [facility] | [address] | [place] [address] | [phone] | + + + + + CBC [...] IDA | | | | performed at [facility] [place] [place];[address] | | LABORATORY | | | | [address];[place] | | | | | | [address] | | | | + + + + + + + + | Specimen | + + | Blood | + + + + + + + | Performing | Address | City/State/Zipcode | Phone Number | | Organization | | | | + + + + + | [facility] | [address] | [place] [address] | [phone] | + + + + + Comprehensive [...] W | | | | | | [facility], | | | | | | [place] [address] | | | | + + + + + + + + | Specimen | + + | Blood | + + + + + + + | Performing | Address | City/State/Zipcode | Phone Number | | Organization | | | | + + + + + | [facility] | [address] | [place] [address] | [phone] | + + + + + Iron, Total (04/07/2019 5:02 AM PST) + + + + + + | Component | Value | Ref Range | Performed | Pathologist | | | | | At | Signature | + + + + + + | Iron | 23 (L)Comment: Testing | 45 - 190 ug/dL | [facility] | | | | performed at [facility], [address] | | LABORATORY | | | | [address], | | | | | | [place] [address] | | | | + + + + + + + + | Specimen | + + | Blood | + + + + + + + | Performing | Address | City/State/Zipcode | Phone Number | | Organization | | | | + + + + + | [facility] | [address] | [place] [address] | [phone] | + + + + + POC [...] | | | POC | performed at [facility] [place] [place];[address] | | LABORATORY | | | | [address];[place], [place] | | | | | | [address] | | | | + + + + + + + + | Specimen | + + | | + + + + + + + | Performing | Address | City/State/Zipcode | Phone Number | | Organization | | | | + + + + + | [facility] | [address] | [place] [address] | [phone] | + + + + + POC Glucose (04/06/2019 4:29 PM PST) + + + + + + | Component | Value | Ref Range | Performed | Pathologist | | | | | At | Signature | + + + + + + | Glucose, | 173 (H)Comment: Testing | 65 - 99 mg/dL | [facility] | | | POC | performed at [facility] [place] [place];[address] | | LABORATORY | | | | [address];[place] | | | | | | [address] | | | | + + + + + + + + | Specimen | + + | | + + + + + + + | Performing | Address | City/State/Zipcode | Phone Number | | Organization | | | | + + + + + | [facility] | [address] | [place] [address] | [phone] | + + + + + Culture, [...] | | LABORATORY | | | | Blvd;[place] [address] | | | | + + + [...] RESULT | Testing performed at | | [facility] | | | | [facility], [address] | | LABORATORY | | | | [place], [place] | | | | | | [address]Spsknud: Testing | | | | | | performed at [facility], [address] | | | | | [address] [place], [place] | | | | | | [address] | | | | + + + + + + + + | Specimen | + + | Body Fluid - Entire | | heel (body | | structure) | + + + + + + + | Performing | Address | City/State/Zipcode | Phone Number | | Organization | | | | + + + + + | [facility] | [address] | [place] [address] | [phone] | + + + + + Culture, [...] LABORATORY | | | | Blvd;[place] [address] | | | | + + + [...] Comment: Testing | | | performed at [facility], | | | [address], | | | [place] [address] | +---+ + + + + + + | Performing | Address | City/State/Zipcode | Phone Number | | Organization | | | | + + + + + | [facility] | [address] | [place] [address] | [phone] | + + + + + Ferritin (04/06/2019 2:30 PM PST) + + + + + + | Component | Value | Ref Range | Performed | Pathologist | | | | | At | Signature | + + + + + + | Ferritin | 62Comment: Testing | 11 - 450 ng/mL | [facility] | | | | performed at [facility], [address] | | LABORATORY | | | | [address], | | | | | | [place] [address] | | | | + + + + + + + + | Specimen | + + | Blood | + + + + + + + | Performing | Address | City/State/Zipcode | Phone Number | | Organization | | | | + + + + + | [facility] | [address] | [place] [address] | [phone] | + + + + + Vitamin [...] | 12.3Comment: Testing | >5.4 ng/mL | [facility] | | | | performed at [facility], [address] | | LABORATORY | | | | [address], | | | | | | [place] [address] | | | | + + + + + + + + | Specimen | + + | Blood | + + + + + + + | Performing | Address | City/State/Zipcode | Phone Number | | Organization | | | | + + + + + | [facility] | [address] | [place] [address] | [phone] | + + + + + Troponin I (04/06/2019 2:30 PM PST) + + + + + + | Component | Value | Ref Range | Performed | Pathologist | | | | | At | Signature | + + + + + + | Troponin I | 0.161 (H)Comment: 0.04 | 0.00 - 0.04 | [facility] | | | | ng/mL [...] at | | | | | | [facility] [place] [place];[address] | | | | | | [facility];[place] [address] | | | | + + + + + + + + | Specimen | + + | Blood | + + + + + + + | Performing | Address | City/State/Zipcode | Phone Number | | Organization | | | | + + + + + | [facility] | [address] | [place] [address] | [phone] | + + + + + POC Glucose (04/06/2019 11:28 AM PST) + + + + + + | Component | Value | Ref Range | Performed | Pathologist | | | | | At | Signature | + + + + + + | Glucose, | 175 (H)Comment: Testing | 65 - 99 mg/dL | [facility] | | | POC | performed at [facility] [place] [place];[address] | | LABORATORY | | | | [address];[place], [place] | | | | | | [address] | | | | + + + + + + + + | Specimen | + + | | + + + + + + + | Performing | Address | City/State/Zipcode | Phone Number | | Organization | | | | + + + + + | [facility] | [address] | [place] [address] | [phone] | + + + + + VAS [...] | | | POC | performed at [facility] [place] [place];[address] | | LABORATORY | | | | [address];[place], [place] | | | | | | [address] | | | | + + + + + + + + | Specimen | + + | | + + + + + + + | Performing | Address | City/State/Zipcode | Phone Number | | Organization | | | | + + + + + | [facility] | [address] | [place] [address] | [phone] | + + + + + Troponin [...] at | | | | | | [facility] [place] [place];[address] | | | | | | [facility];[place] [address] | | | | + + + + + + + + | Specimen | + + | Blood | + + + + + + + | Performing | Address | City/State/Zipcode | Phone Number | | Organization | | | | + + + + + | [facility] | [address] | [place] [address] | [phone] | + + + + + XR [...] LABORATORY | | | | [address];[place] [address] | | | | + + + + + + | RESULT | NO GROWTH 6 DAYS | | [facility] | | | | | | LABORATORY | | + + + + + + | RESULT | Testing performed at | | [facility] | | | | [facility], [address] | | LABORATORY | | | | [place] | | | | | | [address]Nelznbq: Testing | | | | | | performed at [facility], [address] | | | | | [address], [place], [place] | | | | | | [address] | | | | + + + + + + + + | Specimen | + + | Blood - Peripheral | | blood specimen | | (specimen) | + + + + + + + | Performing | Address | City/State/Zipcode | Phone Number | | Organization | | | | + + + + + | [facility] | [address] | [place] [address] | [phone] | + + + + + Culture, [...] LABORATORY | | | | Blvd;[place] [address] | | | | + + + + + + | RESULT | NO GROWTH 6 DAYS | | [facility] | | | | | | LABORATORY | | + + + + + + | RESULT | Testing performed at | | [facility] | | | | [facility], [address] | | LABORATORY | | | | [place], [place] | | | | | | [address]Vbusugz: Testing | | | | | | performed at [facility], [address] | | | | | | [address], [place], [place] | | | | | | [address] | | | | + + + + + + + + | Specimen | + + | Blood - Peripheral | | blood specimen | | (specimen) | + + + + + + + | Performing | Address | City/State/Zipcode | Phone Number | | Organization | | | | + + + + + | [facility] | [address] | [place] [address] | [phone] | + + + + + B [...] | | LABORATORY | | | | [facility] [place] [place];[address] [facility] | | | | | | Blvd;[place] [address] | | | | + + + + + + + + | Specimen | + + | | + + + + + + + | Performing | Address | City/State/Zipcode | Phone Number | | Organization | | | | + + + + + | [facility] | [address] | [place] [address] | [phone] | + + + + + Lipid [...] | | | Calculated | performed at [facility], [address] | | LABORATORY | | | | [address], | | | | | | [place] [address] | | | | + + + + + + + + | Specimen | + + | Blood | + + + + + + + | Performing | Address | City/State/Zipcode | Phone Number | | Organization | | | | + + + + + | [facility] | [address] | [place] [address] | [phone] | + + + + + Hemoglobin A1C (04/06/2019 2:48 AM PST) + + + + + + | Component | Value | Ref Range | Performed | Pathologist | | | | | At | Signature | + + + + + + | Hemoglobin | 7.8 (H)Comment: HbA1c | 4.0 - 6.0 % | [facility] | | | A1c | [...] | 177 (H)Comment: | <154 mg/dL | [facility] | | | Average | Estimated Average | | LABORATORY | | | Glucose | Glucose calculated from | | | | | | hemoglobin A1c by use of | | | | | | the ADArecommended | | | | | | formula.Testing | | | | | | performed at [facility], [address] | | | | | | [facility], | | | | | | [place] [address] | | | | + + + + + + + + | Specimen | + + | Blood | + + + + + + + | Performing | Address | City/State/Zipcode | Phone Number | | Organization | | | | + + + + + | [facility] | [address] | [place] [address] | [phone] | + + + + + Magnesium (04/06/2019 2:48 AM PST) + + + + + + | Component | Value | Ref Range | Performed | Pathologist | | | | | At | Signature | + + + + + + | Magnesium | 1.4 (L)Comment: Testing | 1.7 - 2.4 mg/dL | [facility] | | | | performed at [facility], [address] | | LABORATORY | | | | [address], | | | | | | [place] [address] | | | | + + + + + + + + | Specimen | + + | Blood | + + + + + + + | Performing | Address | City/State/Zipcode | Phone Number | | Organization | | | | + + + + + | [facility] | [address] | [place] [address] | [phone] | + + + + + Comprehensive [...] | | | | | performed at [facility], [address] | | | | | [facility], | | | | | | [place] [address] | | | | + + + + + + + + | Specimen | + + | Blood | + + + + + + + | Performing | Address | City/State/Zipcode | Phone Number | | Organization | | | | + + + + + | [facility] | [address] | [place] [address] | [phone] | + + + + + CBC [...] | | | | | | at [facility] [place] [place];[address];[place] [address] | | | | | |NORMAL [address]T MORPH | | | | | |Testing performed at [facility] [place] [place];[address];[place] [address] | | | | | | | | | | + + + + + + + + | Specimen | + + | Blood | + + + + + + + | Performing | Address | City/State/Zipcode | Phone Number | | Organization | | | | + + + + + | [facility] | [address] | [place] [address] | [phone] | + + + + + Protime INR (04/06/2019 2:48 AM PST) + + + + + + | Component | Value | Ref Range | Performed | Pathologist | | | | | At | Signature | + + + + + + | INR | 1.2Comment: REFERENCE | | [facility] | | | | RANGE:0.9 - 1.2 [...] | | | | | performed at [facility] [place] [place];[address];[place] | | | | | | [address] | | | | + + + + + + + + | Specimen | + + | Blood | + + + + + + + | Performing | Address | City/State/Zipcode | Phone Number | | Organization | | | | + + + + + | [facility] | [address] | [place] [address] | [phone] | + + + + + PTT (04/06/2019 2:48 AM PST) + + + + + + | Component | Value | Ref Range | Performed | Pathologist | | | | | At | Signature | + + + + + + | PTT | 34 (H)Comment: Testing | 23 - 32 seconds | IDA | | | | performed at [facility] [place], [place];[address] | | LABORATORY | | | | [address];[place] | | | | | | [address] | | | | + + + + + + + + | Specimen | + + | Blood | + + + + + + + | Performing | Address | City/State/Zipcode | Phone Number | | Organization | | | | + + + + + | [facility] | [address] | [place] [address] | [phone] | + + + + + Troponin I (04/06/2019 2:48 AM PST) + + + + + + | Component | Value | Ref Range | Performed | Pathologist | | | | | At | Signature | + + + + + + | Troponin I | 0.198 (H)Comment: 0.04 | 0.00 - 0.04 | [facility] | | | | ng/mL [...] at | | | | | | [facility] [place] [place];[address] | | | | | | [place];[place] [address] | | | | + + + + + + + + | Specimen | + + | Blood | + + + + + + + | Performing | Address | City/State/Zipcode | Phone Number | | Organization | | | | + + + + + | [facility] | [address] | [place] [address] | [phone] | + + + + + documented [...] | | | | | dose on [facility] 04/12/19 at 0900 | | AM [...] | | | | | | longer, xsovwq-ppv-cyldj use of | | | | | [...] | | | | | | | 9539-7425 Use NIGHT DOSE for | | | | | | | doses scheduled: HS, 3AM, | | | | | | | Nighttime 8574-6178 If the BG is | | | [...] PRN, Sore Throat, | | | Starting [facility] 04/12/19 at 2120 | | + [...] | | | | | discussed with [facility]. Thank you. | | | | | [...]
--- OUTSIDE RECORDS SUMMARY | ~2019-08-23 | XMS | Encounter Summary ---
Demographics + + + | Address | [address] | | | [place] [address] | + + + | Home Phone [...] | Author | [facility] | | | and [place] | + + + | Organization | [facility] | | | and [place] | + + + | Address | Unknown | + + + | Phone | Unavailable | + + + Support + + + + + | Name | Relationship | Address | Phone | + + + + + | Jessica Shepard | ECON | [address] | | | | | [place] | | | | | [address] | | + + + + + | Bel Solis | ECON | Unknown | | + + + + + Care Team Providers + +------+ + | Care Sheet [employer] Name | Role | Phone | + +------+ + | Dian Lr NP | PCP | | + +------+ + Encounter Details +--------+ + + + + | Date | Type | Department | Care Team | Description | +--------+ + + + + | 07/31/ | Orders Only | [facility] | Conversion | | | 2019 | | INFECTIOUS DISEASE | Transaction, | | | | | [address] | Provider Unknown | | | | | [place], [place] | | | | | | [address] | (Fax) | | | | | [phone] | | | +--------+ + + + [...]
--- OUTSIDE RECORDS SUMMARY | ~2019-08-23 | XMS | Encounter Summary ---
Demographics + + + | Address | [address] | | | [place] [address] | + + + | Home Phone | | + + + | Preferred Language | Unknown | + + + | Marital Status | | + + + | Protestant Affiliation | [id number] | + + + [...] + | Jessica Shepard | ECON | [address] | | | | | [place] | | | | | [address] | | + + + + + | Bel Solis | ECON | Unknown | | + + + + + Care Team Providers + +------+ + | Care Extracorporeal Technician Name | Role | Phone | [...] + + | 11/19/ | Hospital | [facility] | Jurgen Casiano | [place] | | 2018 - | Encounter | [facility] | MD Shayne [address] | encounter (Primary | | | | [address] [place] | [address] [place] | Dx); Fever, | | 11/25/ | | [facility] [place] [address] | [place] [address] | unspecified fever | | 2017 | | [phone] | [phone] | cause; Pneumonia due | | | | | | to infectious | | | | | Gray Perea MD | organism, | | | | | [address] | unspecified | | | | | [place], [place] | laterality, | | | | | [id number] | unspecified part of | | | | | | lung; Sepsis, due to | | | | | Mil Sandoval MD | unspecified | | | | | [address] | organism (HCC); | | | | | [place] | Insulin dependent | | | | | [id number] | diabetes mellitus | | | | | | ([facility]); Other chronic | | | | | | osteomyelitis of | | | | | | right foot ([facility]); | | | | | | Peripheral vascular | | | | | | disease ([facility]) | +--------+ + + + + Social [...] other anesthesia was used during the case. [facility] t lower extremity was then scrubbed, [...] -PT/OT ordered Code Status: Full Code Disposition: [facility] Discharge Condition: Stable, very deconditioned and weak at baseline Pleasant, no distress RRR, no m/r/g CTA bilaterally Soft, obese, NT Ext WWP, right foot ulcer with deep wound, slight purulent drainage Contact information for after-discharge care Placement Destination [facility] . Specialty: [facility] Facility Contact information: [address] [facility] [address] Discharge Medications New Medications Details acetaminophen [...] signed by: Justin Reyna MD, 11/25/2017 13:01 [facility] documented in this encounter Medications at [...] might be different f rom the original. [facility] Hospitalist Progress Note Reagan [...] pantoprazole Mechanical fall -PT/OT ordered Disposition : [facility] as soon as 11/25 Prophylaxis [...] as outlined above. Justin Reyna 11/24/2017 18:16 [facility] Sang Duff MD - 11/24/2017 1:59 PM PDTWe are evaluating the patient for further medical rehabilitatio n services. He does not qualify per CMS guidelines for full inpatient rehab . I recommend he be transferred to SNF for further skilled therapies once he is cleared acute ly. Justin Rodriguez MD - 11/23/2017 2:24 PM PDT [facility]G Hospitalist Progress Note Reagan [...] as outlined above. Justin Reyna 11/23/2017 14:24 [facility] orjuno, Simone VossARIM - 11/23/2017 1:58 PM PDT Foot & Ankle Surgery Progress Note Simone Aceves DPM Reagan Shepard Age/Gender 72 y.o. male Location [facility] Attending Mil Sandoval MD Hosp [...] Value Units Date/Time Culture, Wound, Smear, w/Anaerobe [[id number]] Collected: 11/21/17 1208 Order Status: Sent Lab Status: In process Updated: 11/21/17 1250 Specimen: Tissue from Toe, Fifth/Small, Right Narrative: The following orders were created for panel order Culture, Wound, Smear, w/Anaerobe. Procedure Abnormality Status --------- ------ Culture, Wound, Smear[[id number]] In process Culture, Anaerobic[[id number]] In process Please view results for these tests on the individual orders. 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 Justin Reyna 11/22/2017 17:40 [facility] anielle Guillermo, Sinter Press Operator - 11/22/2017 2:13 PM PDTFormatting of this [...] cerebral hemisphere; Diabetes mellitus (HCC); Stroke (cerebrum) ([facility]); an d TBI (traumatic brain injury) ([facility]). No risk factors for MDR organisms. HPI: [...] Value Units Date/Time Culture, Wound, Smear, w/Anaerobe [[id number]] Collected: 11/21/17 1208 Order Status: Sent Lab Status: In process Updated: 11/21/17 1250 Specimen: Tissue from Toe, Fifth/Small, Right Narrative: The following orders were created for panel order Culture, Wound, Smear, w/Anaerobe. Procedure Abnormality Status --------- ------ Culture, Wound, Smear[[id number]] Preliminary result Culture, Anaerobic[[id number]] In process Please view results for these tests on the individual orders. Culture, Wound, Smear [[id number]] Collected: 11/21/17 1208 Order Status: Completed Lab Status: Preliminary result Updated: 11/22/17 1021 Specimen: Tissue from Toe, Fifth/Small, Right Culture 2+ Lactose Fermenting Gram Negative Bacilli Comment: Identification and susceptibility to follow. Gram Stain Result 2+ White Blood Cells 1+ Epithelial cells 2+ Gram negative rods Culture, Anaerobic [[id number]] Collected: 11/21/17 1208 Order Status: Sent Lab Status: In process Updated: 11/21/17 1250 Specimen: Tissue from Toe, Fifth/Small, Right Respiratory Virus Panel, NAAT [[id number]] Collected: 11/20/17 1257 Order Status: Completed Lab [...] pneumoniae DNA Not Detected Narrative: Performed at: [address] [place] [address] [id number] Recruiting Manager: Jurgen Costa MD, Phone: [phone] Culture, Wound, Smear [[id number]] (Susceptibility) Collected: 11/20/17 0825 Order Status: Completed [...] Sulfamethoxazole <=20 ug/mL Sensitive Culture, Wound, Smear [[id number]] (Susceptibility) Collected: 11/19/172030 Order Status: Completed Lab [...] no longer reported. Culture, Respiratory, Lower, Smear [[id number]] Order Status: Sent Lab Status: No result Specimen: Body Fluid from Sputum, Expectorated Culture, Wound, Smear [[id number]] Order Status: Canceled Lab Status: No result Specimen: Tissue from Leg, Left Culture, Blood [[id number]] (Normal) Collected: 11/19/17 1537 Order Status: Completed Lab Status: Preliminary result Updated: 11/20/17 0351 Specimen: Blood from Peripheral Blood Culture No growth: Monitored continually by instrument for 5 days Culture, Blood [[id number]] (Normal) Collected: 11/19/17 1506 Order Status: Completed Lab Status: Preliminary result Updated: 11/20/17 0321 Specimen: Blood from Peripheral Blood Culture No growth: Monitored continually by instrument for 5 days Culture, Urine [[id number]] Collected: 11/19/17 1416 Order Status: Completed Lab [...] Monitoring Protocol Electronically signed by: Danielle Guillermo, Sinter Press Operator 11/22/2017 14:13 Associated attestation - Luther Hampton [...] Simone Shepard Age/Gender 72 y.o. male Location [facility] Attending Mil Sandoval MD Hosp [...] Value Units Date/Time Culture, Wound, Smear, w/Anaerobe [[id number]] Collected: 11/21/171207 Order Status: Sent Lab Status: In process Updated: 11/21/17 1250 Specimen: Tissue from Toe, Fifth/Small, Right Narrative: The following orders were created for panel order Culture, Wound, Smear, w/Anaerobe. Procedure Abnormality Status --------- ------ Culture, Wound, Smear[[id number]] In process Culture, Anaerobic[[id number]] In process Please view results for these tests on the individual orders. Culture, Wound, Smear [[id number]] Collected: 11/21/171207 Order Status: Sent Lab Status: In process Updated: 11/21/17 1250 Specimen: Tissue from Toe, Fifth/Small, Right Culture, Anaerobic [[id number]] Collected: 09/03/18 1208 Order Status: Sent Lab [...] cerebral hemisphere; Diabetes mellitus (HCC); Stroke (cerebrum) ([facility]); an d TBI (traumatic brain injury) ([facility]). . No risk factors for MDR organisms. [...] Value Units Date/Time Culture, Wound, Smear, w/Anaerobe [[id number]] Collected: 11/21/17 1208 Order Status: Sent Lab Status: In process Updated: 11/21/17 1250 Specimen: Tissue from Toe, Fifth/Small, Right Narrative: The following orders were created for panel order Culture, Wound, Smear, w/Anaerobe. Procedure Abnormality Status --------- ------ Culture, Wound, Smear[[id number]] In process Culture, Anaerobic[[id number]] In process Please view results for these tests on the individual orders. Culture, Wound, Smear [[id number]] Collected: 11/21/17 1208 Order Status: Sent Lab Status: In process Updated: 11/21/17 1250 Specimen: Tissue from Toe, Fifth/Small, Right Culture, Anaerobic [[id number]] Collected: 11/21/17 1208 Order Status: Sent Lab Status: In process Updated: 11/21/17 1250 Specimen: Tissue from Toe, Fifth/Small, Right Respiratory Virus Panel, NAAT [[id number]] Collected: 11/20/17 1257 Order Status: Sent Lab Status: In process Updated: 11/20/17 1302 Specimen: Tissue from Nasopharynx Culture, Wound, Smear [[id number]] Collected: 11/20/17 0825 Order Status: Completed Lab Status: Preliminary result Updated: 11/21/17 0739 Specimen: Tissue from Foot, Right Culture 1+ Gram Negative Jayesh, NOT Pseudomonas Comment: Identification and susceptibility to follow. 1+ Gram Positive Cocci Comment: Isolating for additional information. Gram Stain Result 1+ White Blood Cells No organisms seen Culture, Wound, Smear [[id number]] (Susceptibility) Collected: 11/19/17 203 Order Status: Completed [...] <=20 ug/mL Sensitive Culture, Respiratory, Lower, Smear [[id number]] Order Status: Sent Lab Status: No result Specimen: Body Fluid from Sputum, Expectorated Culture, Wound, Smear [[id number]] Order Status: Canceled Lab Status: No result Specimen: Tissue from Leg, Left Culture, Blood [[id number]] (Normal) Collected: 11/19/17 1537 Order Status: Completed Lab Status: Preliminary result Updated: 11/20/17 0351 Specimen: Blood from Peripheral Blood Culture No growth: Monitored continually by instrument for 5 days Culture, Blood [[id number]] (Normal) Collected: 11/19/17 1506 Order Status: Completed Lab Status: Preliminary result Updated: 11/20/17 0321 Specimen: Blood from Peripheral Blood Culture No growth: Monitored continually by instrument for 5 days Culture, Urine [[id number]] Collected: 11/19/17 1416 Order Status: Completed Lab [...] Hoff MD - 11/21/2017 11:05 AM PDT [place], [place] HOSPITALIST PROGRESS NOTE Patient: Reagan Shepard : 1945: Age: 72 y.o. MedRec: [id number] Admission date: 11/19/2017 Hospital day # : [...] E' Septal Velocity 4.79 cm/s MV Deceleration [place] 336.24 cm/s2 MV Deceleration Time 332.96 msec [...] Value Units Date/Time Respiratory Virus Panel, NAAT [[id number]] Collected: 11/20/17 1257 Order Status: Sent Lab Status: In process Updated: 11/20/17 1302 Specimen: Tissue from Nasopharynx Culture, Wound, Smear [[id number]] Collected: 11/20/17 0825 Order Status: Completed Lab Status: Preliminary result Updated: 11/21/17 0739 Specimen: Tissue from Foot, Right Culture 1+ Gram Negative Jayesh, NOT Pseudomonas Comment: Identification and susceptibility to follow. 1+ Gram Positive Cocci Comment: Isolating for additional information. Gram Stain Result 1+ White Blood Cells No organisms seen Culture, Wound, Smear [[id number]] (Susceptibility) Collected: 11/19/172030 Order Status: Completed Lab [...] + Sulfamethoxazole <=20 ug/mL Sensitive Culture, Blood [[id number]] (Normal) Collected: 11/19/17 1537 Order Status: Completed Lab Status: Preliminary result Updated: 11/20/17 0351 Specimen: Blood from Peripheral Blood Culture No growth: Monitored continually by instrument for 5 days Culture, Blood [[id number]] (Normal) Collected: 11/19/17 1506 Order Status: Completed Lab Status: Preliminary result Updated: 11/20/17 0321 Specimen: Blood from Peripheral Blood Culture No growth: Monitored continually by instrument for 5 days Culture, Urine [[id number]] Collected: 11/19/17 1416 Order Status: Completed Lab [...] Other Pharmacy Consult Nasim Jimenez 11/21/2017 11:05 [facility] Nasim Hoff MD - 11/20/2017 10:04 AM PDT [facility] [place] HOSPITALIST PROGRESS NOTE Patient: Reagan Shepard : 1945: Age: 72 y.o. MedRec: [id number] Admission date: 11/19/2017 Hospital day # : [...] PH UA 5.0 5.0 - 8.0 Specific [place] 1.017 1.001 - 1.030 PROTEIN UA 30 [...] Component Value Units Date/Time Culture, Wound, Smear [[id number]] Collected: 11/20/17824 Order Status: Sent Lab Status: In process Updated: 11/20/17828 Specimen: Tissue from Foot, Right Culture, Wound, Smear [[id number]] Collected: 11/19/172030 Order Status: Completed Lab Status: Preliminary result Updated: 11/20/17899 Specimen: Tissue from Leg, Lower, Right Culture 2+ Gram Negative Jayesh, NOT Pseudomonas Comment: Identification and susceptibility to follow. 1+ Gram Positive Cocci Comment: Isolating for additional information. Gram Stain Result No white blood cells (PMNs) seen 1+ Gram negative rods Culture, Blood [[id number]] (Normal) Collected: 11/19/17 1537 Order Status: Completed Lab Status: Preliminary result Updated: 11/20/17 0351 Specimen: Blood from Peripheral Blood Culture No growth: Monitored continually by instrument for 5 days Culture, Blood [[id number]] (Normal) Collected: 11/19/17 1506 Order Status: Completed Lab Status: Preliminary result Updated: 11/20/17 0321 Specimen: Blood from Peripheral Blood Culture No growth: Monitored continually by instrument for 5 days Culture, Urine [[id number]] (Normal) Collected: 11/19/17 1416 Order Status: Completed [...] Other Pharmacy Consult Nasim Jimenez 11/20/2017 10:05 [facility] Khadra Mac Phar mD - 11/20/2017 9:10 [...] (HCC); an d TBI (traumatic brain injury) ([facility]). . No risk factors for MDR organisms. [...] Component Value Units Date/Time Culture, Wound, Smear [[id number]] Collected: 11/20/17 0825 Order Status: Sent Lab Status: In process Updated: 11/20/17828 Specimen: Tissue from Foot, Right Culture, Wound, Smear [[id number]] Collected: 11/19/172030 Order Status: Completed Lab Status: Preliminary result Updated: 11/20/17 09 Specimen: Tissue from Leg, Lower, Right Culture 2+ Gram Negative Jayesh, NOT Pseudomonas Comment: Identification and susceptibility to follow. 1+ Gram Positive Cocci Comment: Isolating for additional information. Gram Stain Result No white blood cells (PMNs) seen 1+ Gram negative rods Culture, Respiratory, Lower, Smear [[id number]] Order Status: Sent Lab Status: No result Specimen: Body Fluid from Sputum, Expectorated Culture, Wound, Smear [[id number]] Order Status: Canceled Lab Status: No result Specimen: Tissue from Leg, Left Culture, Blood [[id number]] (Normal) Collected: 11/19/17 1537 Order Status: Completed Lab Status: Preliminary result Updated: 11/20/17 0351 Specimen: Blood from Peripheral Blood Culture No growth: Monitored continually by instrument for 5 days Culture, Blood [[id number]] (Normal) Collected: 11/19/17 1506 Order Status: Completed Lab Status: Preliminary result Updated: 11/20/17 0321 Specimen: Blood from Peripheral Blood Culture No growth: Monitored continually by instrument for 5 days Culture, Urine [[id number]] (Normal) Collected: 11/19/17 1416 Order Status: Completed [...] cerebral hemisphere; Diabetes mellitus (HCC); Stroke (cerebrum) ([facility]); an d TBI (traumatic brain injury) ([facility]). . No risk factors for MDR organisms. [...] Value Units Date/Time Culture, Respiratory, Lower, Smear [[id number]] Order Status: Sent Lab Status: No result Specimen: Body Fluid from Sputum, Expectorated Culture, Wound, Smear [[id number]] Order Status: Sent Lab Status: No result Specimen: Tissue from Leg, Left Culture, Blood [[id number]] Collected: 11/19/17 1537 Order Status: Sent Lab Status: In process Updated: 11/19/17 1543 Specimen: Blood from Peripheral Blood Culture, Blood [[id number]] Collected: 11/19/17 1506 Order Status: Sent Lab Status: In process Updated: 11/19/17 1511 Specimen: Blood from Peripheral Blood Culture, Urine [[id number]] Collected: 11/19/17 1416 Order Status: Sent Lab [...] K?MRN: | | | | | | [id number] | | | [id number] | | | his | | | [...] | | | ent/06 | | | [id number] | | | -9b07- | | | [...] | | | St. | | | [place] | | | y H. | | [...] | | | St. | | | [place] | | | y | | | [...] + | [facility] | [address] | [place] | [phone] | | [facility] | | [address] | | | - LABORATORY | | [...] [address] | [place] | [phone] | | [facility] | | [address] | | | - LABORATORY | | [...] [address] | [place] | [phone] | | [facility] | | [address] | | | - LABORATORY | | [...] 7 - 18 mg/dL | [facility] | | | | | | [facility] | | | | | | MEDICAL | | | | | | CENTER - | | | | | | LABORATORY | | + + + + + + | Creatinine | 0.91 | 0.60 - 1.30 | [facility] | | | | | mg/dL | [facility] | | | | | | MEDICAL | | | | | | CENTER - | | | | | | LABORATORY | | + + + + + + | eGFR if not | >60Comment: GLOMERULAR | >=60 | [facility] | | | | FILTRATION | mL/min/1.73m2 | Mariana [facility] | | | DJIBOUTIAN | RATE,ESTIMATED | | MEDICAL | | | | mL/min/1.47t4Sxjm than | | CENTER - | | [...] + | [facility] | [address] | [place] | [phone] | | [facility] | | [address] | | | - LABORATORY | | [...] + | [facility] | [address] | [place], [place] | [phone] | | [facility] | | [address] | | | - LABORATORY | | [...] + + | Performing | Address | City/State[facility] | Phone Number | | Organization | | | | + + + + + | [facility] | [address] | [place] | [phone] | | [facility] | | [address] | | | - LABORATORY | | [...] [address] | [place] | [phone] | | [facility] | | [address] | | | - LABORATORY | | [...] [address] | [place] | [phone] | | [facility] | | [address] | | | - LABORATORY | | [...] [address] | [place] | [phone] | | [facility] | | [address] | | | - LABORATORY | | [...] | 0.91 | 0.60 - 1.30 | [facility] | | | | | mg/dL | [facility] | | | | | | MEDICAL | | | | | | CENTER - | | | | | | LABORATORY | | + + + + + + | eGFR if not | >60Comment: GLOMERULAR | >=60 | [facility] | | | | FILTRATION | mL/min/1.73m2 | [facility] | | | DJIB[place]IAN | RATE,ESTIMATED | | MEDICAL | | | | mL/min/1.17m7Zuqf than | | CENTER - | | [...] + | [facility] | [address] | [place] | [phone] | | [facility] | | [address] | | | - LABORATORY | | [...] + | [facility] | [address] | [place] | [phone] | | [facility] | | [address] | | | - LABORATORY | | [...] [address] | [place] | [phone] | | [facility] | | [address] | | | - LABORATORY | | [...] [address] | [place] | [phone] | | [facility] | | [address] | | | - LABORATORY | | [...] [address] | [place] | [phone] | | [facility] | | [address] | | | - LABORATORY | | [...] ST. | [address] | [place] | [phone] | | [facility] | | [address] | | | - LABORATORY | | [...] [address] | [place] | [phone] | | [facility] | | [address] | | | - LABORATORY | | [...] | 0.87 | 0.60 - 1.30 | [facility] | | | | | mg/dL | [facility] | | | | | | MEDICAL | | | | | | CENTER - | | | | | | LABORATORY | | + + + + + + | eGFR if not | >60Comment: GLOMERULAR | >=60 | [facility] | | | | FILTRATION | mL/min/1.73m2 | [facility] | | | DJIBOUTIAN | RATE,ESTIMATED | | MEDICAL | | | | mL/min/1.15b2Sopi than | | CENTER - | | [...] + | [facility] | [address] | [place] | [phone] | | [facility] | | [address] | | | - LABORATORY | | [...] [address] | [place] | [phone] | | [facility] | | [address] | | | - LABORATORY | | [...] [address] | [place] | [phone] | | [facility] | | [address] | | | - LABORATORY | | [...] + | [facility] | [address] | [place] | [phone] | | [facility] | | [address] | | | - LABORATORY | | [...] + | [facility] | [address] | [place] | [phone] | | [facility] | | [address] | | | - LABORATORY | | [...] [address] | [place] | [phone] | | [facility] | | [address] | | | - LABORATORY | | [...] [address] | [place] | [phone] | | [facility] | | [address] | | | - LABORATORY | | [...] [address] | [place] | [phone] | | [facility] | | [address] | | | - LABORATORY | | [...] + | [facility] | [address] | [place] | [phone] | | [facility] | | [address] | | | - LABORATORY | | [...] mL/min/1.73m2 | [facility] | | | DJIB[place]IAN | RATE,ESTIMATED | | MEDICAL | | | | mL/min/1.08q7Cxld than | | CENTER - | | [...] [address] | [place] | [phone] | | [facility] | | [address] | | | - LABORATORY | | [...] [address] | [place] | [phone] | | [facility] | | [address] | | | - LABORATORY | | [...] + | [facility] | [address] | [place] | [phone] | | [facility] | | [address] | | | - LABORATORY | | [...] [address] | [place] | [phone] | | [facility] | | [address] | | | - LABORATORY | | [...] [address] | [place] | [phone] | | [facility] | | [address] | | | - LABORATORY | | [...] | | | | aerogenesComment: | | [facility] | | | | Consider combination [...] [address] | [place] | [phone] | | [facility] | | [address] | | | - LABORATORY | | [...] + | [facility] | [address] | [place] | [phone] | | [facility] | | [address] | | | - LABORATORY | | [...] [address] | [place] | [phone] | | [facility] | | [address] | | | - LABORATORY | | [...] [address] | [place] | [phone] | | [facility] | | [address] | | | - LABORATORY | | [...] [address] | [place] | [phone] | | [facility] | | [address] | | | - LABORATORY | | [...] [address] | [place] | [phone] | | [facility] | | [address] | | | - LABORATORY | | [...] [address] | [place] | [phone] | | [facility] | | [address] | | | - LABORATORY | | [...] + | [facility] | [address] | [place] | [phone] | | [facility] | | [address] | | | - LABORATORY | | [...] | Basophils | | K/uL | [facility] | | | | | | [...] [address] | [place] | [phone] | | [facility] | | [address] | | | - LABORATORY | | [...] 14 | 7 - 18 mg/dL | [facility] | | | | | | [facility] | | | | | | MEDICAL | | | | | | CENTER - | | | | | | LABORATORY | | + + + + + + | Creatinine | 1.02 | 0.60 - 1.30 | [facility] | | | | | mg/dL | [facility] | | | | | | MEDICAL | | | | | | CENTER - | | | | | | LABORATORY | | + + + + + + | eGFR if not | >60Comment: GLOMERULAR | >=60 | [facility] | | | | FILTRATION | mL/min/1.73m2 | [facility] | | | DJIBOUTIAN | RATE,ESTIMATED | | MEDICAL | | | | mL/min/1.74d0Wwtb than | | CENTER - | | [...] + | [facility] | [address] | [place] | [phone] | | [facility] | | [address] | | | - LABORATORY | | [...] [address] | [place] | [phone] | | [facility] | | [address] | | | - LABORATORY | | [...] ST. | [address] | [place] | [phone] | | [facility] | | [address] | | | - LABORATORY | | [...] | | chronic inflammation suggestive of osteomyelitis. JVR:[facility]:C2NR | | | MICROSCOPIC EXAMINATION: Histologic sections [...] decalcified in decal | | | STAT).. am:AMB:[facility] PERFORMING LABORATORY: The technical | | | component was performed by [facility], [address] [place] [address] | | | [place] [address] (Certified Alcohol And Drug Counselor: Khadra Gill MD; CLIA# | | | [id number]). Professional interpretation was performed by [facility] | | | [facility], [address] | | | [place] [address] (Certified Alcohol And Drug Counselor: Ambrosio | | | [place]). Diagnostician: [...] [address] | [place] | [phone] | | [facility] | | [address] | | | - LABORATORY | | [...] | | | | | | [place] | | | | | + +---------+ [...] ST. | [address] | [place] | [phone] | | [facility] | | [address] | | | - LABORATORY | | [...] + + | Performing | Address | City/State/[facility] | Phone Number | | Organization [...] + | Performed at: 01 - [place] [address], | REFERENCE LAB | | [place], [place] [id number] Recruiting Manager: Jurgen Costa MD, Phone: | NIKKI - BKElba | | [phone] | | + + + + + + + + | Performing | Address | City/State/Zipcode | Phone Number | | Organization | | | | + + + + + | REFERENCE LAB | [address] | [place], [place] | [phone] | | [facility] | [address] | [address] | | + + + + + [...] + | [facility] | [address] | [place] | [phone] | | [facility] | | [address] | | | - LABORATORY | | [...] [address] | [place] | [phone] | | [facility] | | [address] | | | - LABORATORY | | [...] + | [facility] | [address] | [place] | [phone] | | [facility] | | [address] | | | - LABORATORY | | [...] + | [facility] | [address] | [place] | [phone] | | [facility] | | [address] | | | - LABORATORY | | [...] [address] | [place] | [phone] | | [facility] | | [address] | | | - LABORATORY | | [...] [address] | [place] | [phone] | | [facility] | | [address] | | | - LABORATORY | | [...] [address] | [place] | [phone] | | [facility] | | [address] | | | - LABORATORY | | [...] + | [facility] | [address] | [place] | [phone] | | [facility] | | [address] | | | - LABORATORY | | [...] [address] | [place] | [phone] | | [facility] | | [address] | | | - LABORATORY | | [...] 15 | 7 - 18 mg/dL | [facility] | | | | | | [facility] | | | | | | MEDICAL | | | | | | CENTER - | | | | | | LABORATORY | | + + + + + + | Creatinine | 0.91 | 0.60 - 1.30 | [facility] | | | | | mg/dL | [facility] | | | | | | MEDICAL | | | | | | CENTER - | | | | | | LABORATORY | | + + + + + + | eGFR if not | >60Comment: GLOMERULAR | >=60 | [facility] | | | | FILTRATION | mL/min/1.73m2 | [facility] | | | DJIBOUTIAN | RATE,ESTIMATED | | MEDICAL | | | | mL/min/1.09w7Twln than | | CENTER - | | [...] + | [facility] | [address] | [place] | [phone] | | [facility] | | [address] | | | - LABORATORY | | [...] [address] | [place] | [phone] | | [facility] | | [address] | | | - LABORATORY | | [...] [address] | [place] | [phone] | | [facility] | | [address] | | | - LABORATORY | | [...] [address] | [place] | [phone] | | [facility] | | [address] | | | - LABORATORY | | [...] + | [facility] [facility] | [address] | [place] | [phone] | | [facility] | | [address] | | | - LABORATORY | | [...] [address] | [place] | [phone] | | [facility] | | [address] | | | - LABORATORY | | [...] [address] | [place] | [phone] | | [facility] | | [address] | | | - LABORATORY | | [...] + | [facility] | [address] | [place] | [phone] | | [facility] | | [address] | | | - LABORATORY | | [...] [address] | [place] | [phone] | | [facility] | | [address] | | | - LABORATORY | | [...] | | | | | mg/dL | [facility] | | | | | | MEDICAL | | | | | | CENTER - | | | | | | LABORATORY | | + + + + + + | eGFR if not | >60Comment: GLOMERULAR | >=60 | [facility] | | | | FILTRATION | mL/min/1.73m2 | [facility] | | | DJIBOUTIAN | RATE,ESTIMATED | | MEDICAL | | | | mL/min/1.65k0Casq than | | CENTER - | | [...] | | | | | mg/dL | [facility] | | | | | | [...] [address] | [place] | [phone] | | [facility] | | [address] | | | - LABORATORY | | [...] [address] | [place] | [phone] | | [facility] | | [address] | | | - LABORATORY | | [...] + + | Performing | Address | City/State/[facility] | Phone Number | | Organization [...] + + | Please note | CommentComment: Veit | | REFERENCE | | | | of Samoan Pathologists | | LAB [facility] | | | | standards require a | | - [facility] | | | | culture to beperformed | | | | | | on CSF specimens | | | | | | submitted for bacterial | | | | | | antigen testing.(CAP | | | | | | [id number]) Urine | | | | | | specimens will not be | | | | | | cultured. | | | | + + + + + + + + | Specimen | + + | Urine | + + + + + | Narrative | Performed At | + + + | Performed at: 01 - Nikki Jha [address] [place] [address], | REFERENCE LAB | | [place], [place] [id number] Recruiting Manager: Christ Deal MD, Phone: | NIKKI - NICOLÁS | | [phone] | | + + + + + + + + | Performing | Address | City/State/Zipcode | Phone Number | | Organization | | | | + + + + + | REFERENCE LAB | [address] | [place], [place] | [phone] | | [facility] | [facility] | [address] | | + + + + + [...] + | [facility] | [address] | [place] | [phone] | | [facility] | | [address] | | | - LABORATORY | | [...] - 1.030 | [facility] | | | [place], | | | [facility] | | [...] [address] | [place] | [phone] | | [facility] | | [address] | | | - LABORATORY | | [...] | | | | | | use [place] 10/325 if ordered. If | | | [...] | | | | last modification) on [facility] 11/24/17 | | | | | | [...] | | | | | | | 8933-1863 Use NIGHT DOSE for | | | | | | | doses scheduled: HS, 3AM, | | | | | | | Nighttime 9527-5638, | | | | | | + [...] scheduled: AC, NPO, Daytime | | | 9863-1700 Use NIGHT DOSE for | | | doses scheduled: HS, 3AM, | | | Nighttime 2929-6042, | | + +---+ | | | [...] | | | | | | | 9155-9926 Use NIGHT DOSE for | | | | | | | doses scheduled: HS, 3AM, | | | | | | | Nighttime 0636-9719, | | | | | | + [...] | | | | | Subcutaneous, ONCE, [facility] 11/24/17 at | | | | | [...]
--- OUTSIDE RECORDS SUMMARY | ~2019-08-23 | XMS | Encounter Summary ---
Demographics + + + | Address | [address] | | | [place] [address] | + + + | Home Phone [...] + | Jessica Shepard | ECON | [address] | | | | | [place] | | | | | [address] | | + + + + + | [place] Solis | ECON | Unknown | | + + + + + Care Team Providers + +------+ + | Care Stock Drier Tender Name | Role | Phone | + +------+ + | Jamar Manuel MD | PCP | | + +------+ + Reason for Visit +--------+ + | Reason | Comments | +--------+ + | Other | *Labs from [facility] 05/21/2019 (CBC,CMP,ESR,CRP,VANCO | | | TROUGH) | +--------+ + Encounter Details +--------+ + + + + | Date | Type | Department | Care Team | Description | +--------+ + + + + | 05/22/ | Documentati | [facility] | Nimo [place], | Other (*Labs from | 2019 | on | INFECTIOUS DISEASE | Beef Trimmer | [facility] | | | | [address] | | 05/21/2019 | | | | [place] | | (CBC,CMP,ESR,CRP,VAN | | | | [address] | | CO TROUGH)) | | | | [phone] | | | +--------+ + + + [...] as of this encounter Progress Nimo Harley, Beef Trimmer - 05/23/2019 3:55 PM PST*Labs from [facility] DOS 04/2019 (CBC,CMP,ESR,CRP,VANCO TROUGH) RECEIVED: 05/23/2019 Labs were abstracted into [employer] and sent to scan. Kaye CMA Tdocumented [...] documented in this encounter Results Vancomycin, Trough (05/21/2019) + + + + + + [...] + | REFERENCE LAB | [address] | [place] | [phone] | | [facility] | | [address] | | + + + + + C-Reactive Protein (05/21/2019) + + + + + + [...] + + + | REFERENCE LAB | [facility] | [place] | [phone] | | [facility] | | [address] | | + + + + + Sedimentation Rate (05/21/2019) + +--------+ + + + | Component [...] + | REFERENCE LAB | [address] | [place] | [phone] | | [facility] | | [address] | | + + + + + Comprehensive Metabolic Panel (05/21/2019) + + + + + + [...] + | REFERENCE LAB | [address] | [place] | [phone] | | [facility] | | [address] | | + + + + + [...] + + | REFERENCE LAB | [address] [facility] | [place] | [phone] | | [facility] | | [address] | | + + + + + [...]
--- OUTSIDE RECORDS SUMMARY | ~2019-08-23 | XMS | Encounter Summary ---
Demographics + + + | Address | [address] | | | [place] [address] | + + + | Home Phone | | + + + | Preferred Language | Unknown | + + + | Marital Status | | + + + | Congregational Affiliation | 1076 | + + + | Race | Unknown | + + + | Ethnic Group | Unknown | + + + Author + + + | Author | [facility] | | | and [place] | + + + | Organization | [facility] | | | and [place] | + + + | Address | Unknown | + + + | Phone | Unavailable | + + + Support + + + + + | Name | Relationship | Address | Phone | + + + + + | Jessica Sheprad | ECON | [address] | | | | | [place] | | | | | [address] | | + + + + + | Bel Solis | ECON | Unknown | | + + + + + Care Team Providers + +------+ + | Care Boat Operator Name | Role | Phone | [...] + + | 05/11/ | Telephone | [facility] | Ely Mcguire | Other (care | | 2020 | | INFECTIOUS DISEASE | [place] Zurita | coordination- | | | | [address] | | vancomycin trough ) | | | | [place] | | | | | | [address] | | | | | | [phone] | | | +--------+ + + + [...]
--- OUTSIDE RECORDS SUMMARY | ~2019-08-23 | XMS | Encounter Summary ---
Demographics + + + | Address | [address] | | | [place] [address] | + + + | Home Phone [...] + | Jessica Shepard | ECON | [address] | | | | | [place] | | | | | [address] | | + + + + + | Bel Solis | ECON | Unknown | | + + + + + Care Team Providers + +------+ + | Care Director Cardiac Name | Role | Phone | + +------+ + PCP | Unavailable | + +------+ + Encounter Details +--------+ + + + + | Date | Type | Department | Care Team | Description | +--------+ + + + + | 04/16/ | Hospital | [facility] | Dian Lr NP | | | 2011 | Encounter | MED CTR XRAY [address] | [address] | | | | | [place] | [place] [address] | | | | | [place] [address] | [phone] | | | | | [phone] | | | +--------+ + + + [...] Performed At | + + + | [facility] Diagnostic Imaging Department | [facility] | | [address] [facility] | [facility] | | BONE DENSITY TESTING: | [...] Transcribed Date/Time: | | | 04/16/2011 14:14 Store Team Member: <Electronically Signed | | | by David Guillermo MD> 04/16/11 1459 | | + + + + + | Procedure Note | + + | Johnson, Rad Conversion - 04/27/2013 4:38 PM [facility] | | Diagnostic Imaging Department [address] [place] [address] | | BONE DENSITY TESTIN04/16/2011 CLINICAL HISTORY: [...] 13:48 | |Transcribed Date/Time: 04/16/2011 14:14 | |Store Team Member: | |<Electronically Signed by David Guillermo MD> [...]
--- OUTSIDE RECORDS SUMMARY | ~2019-08-23 | XMS | Encounter Summary ---
Demographics + + + | Address | [address] | | | [place] [address] | + + + | Home Phone [...] + | Jessica Shepard | ECON | [address] | | | | | [place] | | | | | [address] | | + + + + + | Bel Solis | ECON | Unknown | | + + + + + Care Team Providers + +------+ + | Care Baker Apprentice Name | Role | Phone | + +------+ + PCP | Unavailable | + +------+ + Encounter Details +--------+ + + + + | Date | Type | Department | Care Team | Description | +--------+ + + + + | 12/08/ | Hospital | [facility] | | | | 1999 | Encounter | MED CTR XRAY [address] | | | | | | [place] | | | | | | [place] [address] | | | | | | [phone] | | | +--------+ + + + [...]
--- OUTSIDE RECORDS SUMMARY | ~2019-08-23 | XMS | Encounter Summary ---
Demographics + + + | Address | [address] | | | [place] [address] | + + + | Home Phone | | + + + | Preferred Language | Unknown | + + + | Marital Status | | + + + | Sabianism Affiliation | 1076 | + + + | Race | Unknown | + + + | Ethnic Group | Unknown | + + + Author + + + | Author | [facility] | | | and [place] | + + + | Organization | [facility] | | | and [place] | + + + | Address | Unknown | + + + | Phone | Unavailable | + + + Support + + + + + | Name | Relationship | Address | Phone | + + + + + | Jessica Shepard | ECON | [address] | | | | | [place] | | | | | [address] | | + + + + + | Bel Solis | ECON | Unknown | | + + + + + Care Team Providers + +------+ + | Care Production Zone Leader Name | Role | Phone | + [...] + + | 05/11/ | Documentati | [facility] | Nimo Westbrook, | Other (Labs from | | 2019 | on | INFECTIOUS DISEASE | Clinical Support Tech | [facility] | | | | [address] | | 04/26/2019- | | | | [place] | | 0) | | | | [address] | | | | | | [phone] | | | +--------+ + + + [...] of this encounter Progress Notes Nimo Westbrook, Clinical Support Tech - 05/11/2019 1:36 PM PST*Labs from [facility] 08/2019 (CBC,BMP,VANCOMYCIN TROUGH).. *Labs from [facility] 05/01/2019 (CBC,CMP, ESR,CRP, VANCOMYCIN TROUGH).. *Labs from [facility] 05/03/2019 (CMP,VANCOMYCIN TROUGH). *Labs from [facility] 05/06/2019 (BMP,VANCOMYCIN TROUGH). *Labs from [facility] 05/09/2019 (BMP,VANCOMYCIN TROUGH RECEIVED: 05/10/2019 Labs were abstracted into [employer] and sent to scan. Kaye CMA Tdocumented [...] | REFERENCE LAB | [address] [facility] | [place] | [phone] | | [facility] | | [address] | | + + + + + [...] | REFERENCE LAB | [address] [facility] | [place] | [phone] | | [facility] | | [address] | | + + + + + [...] + + + | REFERENCE LAB | [address] [facility] | [place] | [phone] | | [facility] | | [address] | | + + + + + [...] | REFERENCE LAB | [address] [facility] | [place] | [phone] | | [facility] | | [address] | | + + + + + [...] [address] | [place] | [phone] | | [facility] | | [address] | | + + + + + [...] | REFERENCE LAB | [address] [facility] | [place], [place] | [phone] | | [facility] | | [address] | | + + + + + [...] + + | REFERENCE LAB | [address] [facility] | [place], [place] | [phone] | | [facility] | | [address] | | + + + + + [...] + + | REFERENCE LAB | [address] | [place] | [phone] | | [facility] | | [address] | | + + + + + [...] [address] | [place] | [phone] | | [facility] | | [address] | | + + + + + [...] [address] | [place] | [phone] | | [facility] | | [address] | | + + + + + [...] + + | REFERENCE LAB | [address] [facility] | [place] | [phone] | | [facility] | | [address] | | + + + + + [...] | REFERENCE LAB | [address] [facility] | [place] | [phone] | | [facility] | | [address] | | + + + + + [...] | REFERENCE LAB | [address] [facility] | [place] | [phone] | | [facility] | | [address] | | + + + + + [...] [address] | [place] | [phone] | | [facility] | Blvd[address] | [address] | | | LABORATORY | | | | + + + + + | REFERENCE LAB | [address] [facility] | [place], [place] | | | [facility] | Blvd. | [address] | | | LABORATORY | | | [...]
--- OUTSIDE RECORDS SUMMARY | ~2019-08-23 | XMS | Encounter Summary ---
Demographics + + + | Address | [address] | | | [place] [address] | + + + | Home Phone [...] + | Jessica Amezquita | ECON | [address] | | | | | [place] | | | | | [address] | | + + + + + | Bel Solis | ECON | Unknown | | + + + + + Care Team Providers + +------+ + | Care Claim Benefit Specialist Name | Role | Phone | + +------+ + PCP | Unavailable | + +------+ + Encounter Details +--------+ + + + + | Date | Type | Department | Care Team | Description | +--------+ + + + + | 04/21/ | Hospital | [facility] | Christina Da Silva | | | 2012 | Encounter | MED CTR EMERGENCY | MD Sunshine [address] | | | | | [address] | [facility], | | | | | [place], [place] | [place] [address] | | | | | [address] | [phone] | | | | | [phone] | | | | | | | Cody Goodwin | | | | | | MD Evelia [address] | | | | | | [place], [place] | | | | | | [address] | | | | | | [phone] | | | | | | | [...] Performed At | + + + | [facility] Diagnostic Imaging | [facility] | | Department [address] [facility], [place] | [facility] | | [ rep ct [address]] [ rep [facility] | | st zip] Signed | - IMAGING | | | | | Patient Name: BIAREAGAN Physician: | | | BILL.[birth year] : 1945 Age: 67 Sex: M Unit #: [id number] | | | Exam Date: 04/21/12 Location: ER | | | Report #: [id number] Page: | | | %(RAD)RES..mtdd.print.filter("pg") of %(RAD) | | | RES..mtdd.print.filter("tpg") | | | | | | Accession Number: [id number] | | | ABDOMEN ONE VIEW 04/22/2012 [...] Transcribed Date/Time: | | | 04/22/2012 18:46 Account Executive [employer]: | | | <<Signature on File>> | | | Rico | | | MD Jack04/23/12 0933 <Electronically signed by Rico Santiago MD> | | | Rico Santiago MD 04/22/12 1424 Account [employer]: Abhishek | | | Eznhjejxxhcew43/02/13 1846 Cody Goodwin MD | | | | | + + + + + + + + | Performing | Address | City/State/[facility] | Phone Number | | Organization | | | | + + + + + | [facility] | [address] | [place], [place] | [phone] | | [facility] | | [address] | | | - IMAGING | | | | + + + + + CT Abdomen Pelvis w Contrast (04/22/2012 11:43 AM PST) + + | Specimen | + + | | + + + + + | Narrative | Performed At | + + + | [facility] Diagnostic Imaging | [facility] | | Department [address], [place] | [facility] | | [ rep ct street1+2] [ rep ct [facility] | | st zip] Signed | - IMAGING | | | | | Patient Name: REAGAN AMEZQUITA Physician: | | | BILL. : 1945 Age: 67 Sex: M Unit #: [id number] | | | Exam Date: 04/21/12 Location: ER | | | Report #: [id number] Page: | | | %(RAD)RES..mtdd.print.filter("pg") of %(RAD) | | | RES..mtdd.print.filter("tpg") | | | | | | Accession Number: [id number] | | | CT SCAN OF THE [...] | | PRELIMINARY REPORT WAS SENT BY [employer] AT 10:02 P.M. ON | | | 04/21/12. Dictated Date/Time: 04/22/2012 11:43 | | | Transcribed Date/Time: 04/22/2012 15:29 Account Executive [employer]: | | | <<Signature on File>> | | | Rico | | | MD Jack04/23/12 0933 <Electronically signed by Rico Santiago MD> | | | Rico Santiago MD 04/22/12 1143 Account [employer]: Abhishek | | | Oakqojsbygsrt30/02/13 1529 Cody Goodwin MD | | | | | + + + + + + + + | Performing | Address | City/State/Zipcode | Phone Number | | Organization | | | | + + + + + | [facility] | [address] | [place] | [phone] | | [facility] | | [address] | | | - IMAGING | | [...] + | [facility] | [address] | [place] | [phone] | | [facility] | | [address] | | | - LABORATORY | | | | + + + + + | [facility] | [address] | [place], [place] | | | [facility] | | [address] | | | - LABORATORY | [...] + | [facility] | [address] | [place] | [phone] | | [facility] | | [facility] | | | - LABORATORY | | | | + + + + + | [facility] | [address] | [place], [place] | | | [facility] | | [address] [place] [address] | | | - LABORATORY | | | | + + + + + documented in this encounter Visit Diagnoses Not on filedocumented in this encounter
--- OUTSIDE RECORDS SUMMARY | ~2019-08-23 | XMS | Encounter Summary ---
Demographics + + + | Address | [address] | | | [place] [address] | + + + | Home Phone [...] + | Jessica Shepard | ECON | [address] | | | | | [place] | | | | | [address] | | + + + + + | Bel Solis | ECON | Unknown | | + + + + + Care Team Providers + +------+ + | Care Paper Gluing Operator Name | Role | Phone | [...] + + | 05/16/ | Documentati | [facility] | Dylan Gaston, | Results (LABS (CMP, | | 2019 | on | INFECTIOUS DISEASE | Hero Malave MD | VANCO TROUGH, CRP, | | | | [address] | [address] | CBC, ESR | | | | [place] | [place] [address] | 05/14/2019)) | | | | [address] | [phone] | | | | | [phone] | | | +--------+ + + + [...] of this encounter Progress Notes Charlotte Castellon, Banking Pin Adjuster - 05/16/2019 11:48 AM PSTLab Type: CMP, VANCO TR OUGH, CRP, CBC, ESR Lab Collection date: 05/14/2019 Received from:[facility] Abstracted into [facility]:YES Sent to scan:YES Author:CHARLOTTE PALENCIA CMA P [...]
--- OUTSIDE RECORDS SUMMARY | ~2019-08-23 | XMS | Encounter Summary ---
Demographics + + + | Address | [address] | | | [place] [address] | + + + | Home Phone [...] + | Jessica Shepard | ECON | [address] | | | | | [place] | | | | | [address] | | + + + + + | Bel Solis | ECON | Unknown | | + + + + + Care Team Providers + +------+ + | Care Ruby [employer] Rails Software Developer Name | Role | Phone | + +------+ + | Dian Lr NP | PCP | | + +------+ + Encounter Details +--------+ + + + + | Date | Type | Department | Care Team | Description | +--------+ + + + + | 05/14/ | Hospital | [facility] | Conversion | Pain | | 2017 | Encounter | CONVERSION DEP [address] | Transaction, | | | | | [address] | Provider Unknown | | | | | [place] | [phone] | | | | | [address] | | | | | | [phone] | | | +--------+ + + + [...]
--- OUTSIDE RECORDS SUMMARY | ~2019-08-23 | XMS | Encounter Summary ---
Demographics + + + | Address | [address] | | | [place] [address] | + + + | Home Phone | | + + + | Preferred Language | Unknown | + + + | Marital Status | | + + + | Jain Affiliation | [id number] | + + + [...] + | Jessica Shepard | ECON | [address] | | | | | [place] | | | | | [address] | | + + + + + | Bel Solis | ECON | Unknown | | + + + + + Care Team Providers + +------+ + | Care Environmental Lawyer Name | Role | Phone | + [...] + + | 05/11/ | Documentati | [facility] | Nimo Westbrook, | Other (Labs from | | 2019 | on | INFECTIOUS DISEASE | Shower Attendant | [facility] | | | | [address] | | 04/26/2019- | | | | [place] | | 0) | | | | [address] | | | | | | [phone] | | | +--------+ + + + [...] of this encounter Progress Notes Nimo Westbrook, Shower Attendant - 05/11/2019 1:36 PM PST*Labs from [facility] 08/2019 (CBC,BMP,VANCOMYCIN TROUGH).. *Labs from [facility] 05/01/2019 (CBC,CMP, ESR,CRP, VANCOMYCIN TROUGH).. *Labs from [facility] 05/03/2019 (CMP,VANCOMYCIN TROUGH). *Labs from [facility] 05/06/2019 (BMP,VANCOMYCIN TROUGH). *Labs from [facility] 05/09/2019 (BMP,VANCOMYCIN TROUGH RECEIVED: 05/10/2019 Labs were abstracted into [employer] and sent to scan. Kaye CMA Tdocumented [...] + + | REFERENCE LAB | [address] [facility] | [place] | [phone] | | [facility] | | [address] | | + + + + + [...] + + | REFERENCE LAB | [address] [facility] | [place] | [phone] | | [facility] | | [address] | | + + + + + [...] + + + | REFERENCE LAB | [address] [facility] | [place] | [phone] | | [facility] | | [address] | | + + + + + [...] + + | REFERENCE LAB | [address] [facility] | [place] | [phone] | | [facility] | | [address] | | + + + + + [...] [address] | [place] | [phone] | | [facility] | | [address] | | + + + + + [...] + + | REFERENCE LAB | [address] [facility] | [place], [place] | [phone] | | [facility] | | [address] | | + + + + + [...] + + | REFERENCE LAB | [address] [facility] | [place], [place] | [phone] | | [facility] | | [address] | | + + + + + [...] + + | REFERENCE LAB | [address] | [place] | [phone] | | [facility] | | [address] | | + + + + + [...] LAB | [address] | [place] | [phone] | | [facility] | | [address] | | + + + + + [...] [address] | [place] | [phone] | | [facility] | | [address] | | + + + + + [...] + + | REFERENCE LAB | [address] [facility] | [place] | [phone] | | [facility] | | [address] | | + + + + + [...] + + | REFERENCE LAB | [address] [facility] | [place] | [phone] | | [facility] | | [address] | | + + + + + [...] + + | REFERENCE LAB | [address] [facility] | [place] | [phone] | | [facility] | | [address] | | + + + + + [...] [address] | [place] | [phone] | | [facility] | Bl[address] | [address] | | | LABORATORY | | | | + + + + + | REFERENCE LAB | [address] [facility] | [place], [place] | | | [facility] | Blvd. | [address] | | | LABORATORY | | | [...]
--- OUTSIDE RECORDS SUMMARY | ~2019-08-23 | XMS | Encounter Summary ---
Demographics + + + | Address | [address] | | | [place] [address] | + + + | Home Phone [...] + | Jessica Shepard | ECON | [address] | | | | | [place] | | | | | [address] | | + + + + + | Bel Solis | ECON | Unknown | | + + + + + Care Team Providers + +------+ + | Care Pet Trainer Name | Role | Phone | + +------+ + | Dian Lr NP | PCP | | + +------+ + Encounter Details +--------+ + + + + | Date | Type | Department | Care Team | Description | +--------+ + + + + | 11/26/ | Hospital | [facility] | Diana Toby | | | 2018 | Encounter | MED CTR XRAY [address] | [address] | | | | | [place] | [facility] | | | | | [place] [address] | [place] [address] | | | | | [phone] | [phone] | | | | | | | [...]
--- OUTSIDE RECORDS SUMMARY | ~2019-08-23 | XMS | Encounter Summary ---
Demographics + + + | Address | [address] | | | [place] [address] | + + + | Home Phone [...] | [facility] | | | and [place] | + [...] + | Jessica Shepard | ECON | [address] | | | | | [place] | | | | | [address] | | + + + + + | Bel Solis | ECON | Unknown | | + + + + + Care Team Providers + +------+ + | Care Senior Sales Operations Analyst Name | Role | Phone | + +------+ + | Jamar Manuel MD | PCP | | + +------+ + Encounter Details +--------+ + + + + | Date | Type | Department | Care Team | Description | +--------+ + + + + | 05/08/ | Hospital | [facility] | Mika Tim DNP | Peripheral vascular | | 2020 | Encounter | VASCULAR SURGERY | [address] | disease (HCC) | | | | ULTRASOUND [address] | [place], [place] | | | | | [address] | [address] | | | | | [place], [place] | | | | | | [address] | | | | | | [phone] | | | +--------+ + + + [...] | | | | PST | ([facility]) | results section. | + +--------+ + [...]
--- OUTSIDE RECORDS SUMMARY | ~2019-08-23 | XMS | Encounter Summary ---
Demographics + + + | Address | [address] | | | [place] [address] | + + + | Home Phone | | + + + | Preferred Language | Unknown | + + + | Marital Status | | + + + | Zoroastrianism Affiliation | 1076 | + + + | Race | Unknown | + + + | Ethnic Group | Unknown | + + + Author + + + | Author | [facility] | | | and [place] | + + + | Organization | [facility] | | | and [place] | + + + | Address | Unknown | + + + | Phone | Unavailable | + + + Support + + + + + | Name | Relationship | Address | Phone | + + + + + | Jessica Shepard | ECON | [address] | | | | | [place] | | | | | [address] | | + + + + + | Bel Solis | ECON | Unknown | | + + + + + Care Team Providers + +------+ + | Care Transcription Name | Role | Phone | + [...] + + | 05/02/ | Telephone | [facility] | Ely Mcguire | Other (care | | 2020 | | INFECTIOUS DISEASE | Parminder RN | coordination) | | | | [address] | | | | | | [place], [place] | | | | | | [address] | | | | | | [phone] | | | +--------+ + + + [...]
--- OUTSIDE RECORDS SUMMARY | ~2019-08-23 | XMS | Encounter Summary ---
Demographics + + + | Address | [address] | | | [place] [address] | + + + | Home Phone [...] + | Jessica Shepard | ECON | [address] | | | | | [place] | | | | | [address] | | + + + + + | Bel Solis | ECON | Unknown | | + + + + + Care Team Providers + +------+ + | Care Quality Assurance Test Program Manager Name | Role | Phone | + +------+ + | Jamar Manuel MD | PCP | | + +------+ + Encounter Details +--------+ + + + + | Date | Type | Department | Care Team | Description | +--------+ + + + + | 01/03/ | Lab | [facility] | Toby Ortiz | Other acute | | 2018 | Requisition | MED CTR LABORATORY | [address] | osteomyelitis, right | | | | [address] [place] | [facility] | ankle and foot | | | | [place], [place] | [place] [address] | ([facility]); Diabetes | | | | [address] | [phone] | mellitus due to | | | | [phone] | | underlying condition | | | | | | with foot ulcer | | | | | | (CODE) ([facility]); Other | | | | | | thread grinder (current) | | | | | | [...] section. | | | | | ([facility]) Diabetes | | | | | | mellitus due to | | | | | | underlying condition | | | | | | with foot ulcer | | | | | | (CODE) ([facility]) Other | | | | | | thread grinder (current) | | | | | | [...] | | | | | (CODE) ([facility]) Other | | | | | | thread grinder (current) | | | | | | drug therapy | | + +--------+ + + + | C-REACTIVE PROTEIN | Routin | 01/03/2018 | Other acute | Results for this | | | e | 9:45 AM | osteomyelitis, right | procedure are in the | | | | PDT | ankle and foot | results section. | | | | | ([facility]) Diabetes | | | | | | mellitus due to | | | | | | underlying condition | | | | | | with foot ulcer | | | | | | (CODE) ([facility]) Other | | | | | | thread grinder (current) | | | | | | [...] section. | | | | | ([facility]) Diabetes | | | | | | mellitus due to | | | | | | underlying condition | | | | | | with foot ulcer | | | | | | (CODE) ([facility]) Other | | | | | | longterm (current) | | | | | | [...] 12 | 7 - 18 mg/dL | [facility] | | | | | | [facility] | | | | | | MEDICAL | | | | | | CENTER - | | | | | | LABORATORY | | + + + + + + | Creatinine | 0.63 | 0.60 - 1.30 | [facility] | | | | | mg/dL | [facility] | | | | | | MEDICAL | | | | | | CENTER - | | | | | | LABORATORY | | + + + + + + | eGFR if not | >60Comment: GLOMERULAR | >=60 | [facility] | | | | FILTRATION | mL/min/1.73m2 | [facility] | | | IRISH | RATE,ESTIMATED | | MEDICAL | | | | mL/min/1.21p3Kbcy than | | CENTER - | | [...] + | [facility] | [address] | [place] | [phone] | | [facility] | | [address] | | | - LABORATORY | | [...] [address] | [place] | [phone] | | [facility] | | [address] | | | - LABORATORY | | [...] + | [facility] | [address] | [place] | [phone] | | [facility] | | [address] | | | - LABORATORY | | [...] [facility] | | | | | | [facility] | | | | | | MEDICAL | | | | | | CENTER - | | | | | | LABORATORY | | + + + + + + | RBC | 4.83 | 4.30 - 5.70 | [facility] | | | | | M/uL | [facility] | | | | [...] [address] | [place] | [phone] | | [facility] | | [address] | | | - LABORATORY | | | | + + + + + documented in this encounter Visit Diagnoses + + | Diagnosis | + + | Other acute osteomyelitis, right ankle and foot (HCC) | + + | 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
--- OUTSIDE RECORDS SUMMARY | ~2019-08-23 | XMS | Encounter Summary ---
Demographics + + + | Address | [address] | | | [place] [address] | + + + | Home Phone [...] + | Jessica Shepard | ECON | [address] | | | | | [place] | | | | | [address] | | + + + + + | Bel Solis | ECON | Unknown | | + + + + + Care Team Providers + +------+ + | Care Mechanics Supervisor Name | Role | Phone | + +------+ + | Jamar Manuel MD | PCP | | + +------+ + Encounter Details +--------+---------+ + + + | Date | Type | Department | Care Team | Description | +--------+---------+ + + + | 04/10/ | Surgery | [facility] | Aleksander Montiel, | CYSTOSCOPY | | 2019 | | [facility] | MD Nash SMITH | | | | | OPERATING ROOM [address] [place], [place] | | | | | [facility] | [address] | | | | | [place], [place] | [phone] | | | | | [address] | | | | | | [phone] | | | +--------+---------+ + + + [...] Discharge: 04/21/2019 Treatment Team: Lior Trujillo MD; Aleksandre Montiel MD; Simba Cheng MD; Ambrosio Barreto [...] other chronic comorbidities who pre sents to [facility] ER on 04/06 for shortness of breath admitted with 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 The patient was admitted to regular medical floor and started on optimal medical management . On-call trainer (Dr. Ruelas) recommended continued medical management. Patient [...] inferior defect with partial improvement at rest wet suit gluer was i nformed by hospitalist colleague recommended [...] their primary care provider within 1 w [place] after discharge, follow-up with ID in 2 weeks after discharge, follow-up with vascular s urgery as per their recommendations or otherwise within 2 weeks after discharge. The patien t will need to follow-up with his outpatient trainer within 1 to 2 weeks after discharg [...] Results Results Reviewed. Discharge Information: Follow up: [facility] SAMM [address] [facility] [address] Bhanu Seaman PA-C [address] [place] [facility] [address] In 2 weeks Jamar Manuel MD [address] [place] [address] Schedule an appointment as soon as possible for a visit in 1 week Hero Gaston MD [address] [facility] [address] Schedule an appointment as soon as possible for a visit in 2 weeks Post hospital discharge follow-up Dr. [place] Ruelas [address] [facility] [address] [facility] [address] Schedule an appointment as soon as [...] mg per tablet aka: NORCO . Disposition: custodial Condition: Stable Code Status: Full Code Discharge [...] numbness Complications from anesthesia Date Last Reviewed: 08/20/201519997026-7309 [employer]. [address] [place] [id number]. All righ ts reserved. This information is [...] Wakefield PA-C - 04/21/2019 8:21 AM PST [facility] Service: Vascular Surgery Progress Note SUBJECTIVE Patient Summary: 74 y.o. man with complex medical issues and LE ischemic ulcers, he wa s recently admitted to the [facility] from 03/28/19 to 04/04/19 where he was treated/ diagnosed with systolic heart failure, type 2 IA/NSTEMI, SHAE, ARF. O2 desaturation brought him from SNF to [facility] and current admission today with CHF and [...] Holliday RN - 04/20/2019 4:40 PM PST [facility] Service: Wound Care Follow Up Note [...] Primary Wound Type: Diabetic Ulcer Side: Left [place] ation: lateral Location: foot Wound Subtype: ulceration, [...] M D - 04/20/2019 2:16 PM PST [facility] Service: Hospitalist Progress Note Pt: Reagan [...] hematuria. Recent history notable for admit to [facility] from 03/28/19 to 04/04/2019 for CHF exacerbation with eventual dischar ge to [facility]. He then re-presented to [...] encounter as of 04/20/19-14:16 IMAGING: Reviewed in [facility], no new results. PROBLEM LIST Principal Problem: [...] Received 8 days of IV antibiotics at [facility] discharged home on with augmentin, now readmitted on 04/06 at [facility] and started on rocephin after sending [...] SQH Code status: Full Dispo: back to [facility] pending recovery from vascular bypass surgery [...] se, MD - 04/20/2019 8:56 AM PST [facility] Service: Infectious Diseases Progress Note Hospital [...] Component Value Units Date/Time Culture, Wound, Superficial [[id number]] (Abnormal) (Susceptibility) Collected: 04/06/191545 Order Status: Completed Lab Status: Final result Updated: 04/11/19727 Specimen: Body Fluid from Heel, Right Special Requests LT FOOT Special Requests Testing performed at [facility];[address] [place] [address] RESULT -- 1+ ENTEROCOCCUS FAECALIS Aminoglycosides (except [...] Sensitive SUSCEPTIBLE JESSICA Final Testing performed at [facility], [address] [place] [address] Culture, Wound, Superficial [[id number]] Collected: 04/06/191545 Order Status: Completed Lab Status: Final result Updated: 04/08/1937 Specimen: Body Fluid from Heel, Right Special Requests RIGHT FOOT Special Requests Testing performed at [facility];[address] [place] [address] RESULT -- 1+ NORMAL SKIN CELSA ISOLATED RESULT NO FURTHER WORKUP RESULT Testing performed at [facility], [address] [place] [address] Comment: Testing performed at [facility], [address] [place] [address] Microbiology Results (72 hrs) No results found [...] therapy, monitorization, follow-up were discussed with the setuardo brown. He will return to ID clinic [...] assisting with dosing and monitorization. Discussed with vocational case manager regarding OPAT. Discussed with vocational case manager regarding discharge planning. Dr. Dolan will take over ID service tomorrow. Please call if questions. Hero Richardson MD, MPH Infectious Diseases 04/20/19 Sheila Gage RN - 04/19/2019 7:20 PM PSTEnd of shift chart check complete. Sheila Cabrera RN Sunshine Chen, [facility] - 04/19/2019 3:23 PM PSTFormatting of this [...] Shaver MD - 04/19/2019 2:46 PM PST [facility] Service: Hospitalist Progress Note Pt: Reagan [...] hematuria. Recent history notable for admit to [facility] from 03/28/19 to 04/04/2019 for CHF exacerbation with eventual dischar ge to [facility]. He then re-presented to [...] Received 8 days of IV antibiotics at [facility] discharged home on with augmentin, now readmitted on 04/06 at [facility] and started on rocephin after sending [...] SQH Code status: Full Dispo: back to [facility] pending recovery from vascular bypass surgery, final ID recs , tentatively planning for ~04/21 Grover Charles MD 2:46 PM 04/19/2019 Portions of this chart may have been copied from previous notes for continuity of care purp ose Hero Sánchez MD - 04/19/2019 9:53 AM PSTFormatting of this note might be different from the ramiro ragsdale. [facility] Service: Infectious Diseases Progress Note Hospital [...] Component Value Units Date/Time Culture, Wound, Superficial [[id number]] (Abnormal) (Susceptibility) Collected: 04/06/19 1546 Order Status: Completed Lab Status: Final result Updated: 04/11/1928 Specimen: Body Fluid from Heel, Right Special Requests LT FOOT Special Requests Testing performed at [facility];[address] [place] [address];[place] [address] RESULT -- 1+ ENTEROCOCCUS FAECALIS Aminoglycosides (except [...] Sensitive SUSCEPTIBLE JESSICA Final Testing performed at [facility], [address] [place] [address] Culture, Wound, Superficial [[id number]] Collected: 04/06/19 1546 Order Status: Completed Lab Status: Final result Updated: 04/08/1937 Specimen: Body Fluid from Heel, Right Special Requests RIGHT FOOT Special Requests Testing performed at [facility];[address] [place] [address] RESULT -- 1+ NORMAL SKIN CELSA ISOLATED RESULT NO FURTHER WORKUP RESULT Testing performed at [facility], [address] [place] [address] Comment: Testing performed at [facility], [address] [place] [address] Culture, Blood [[id number]] Collected: 04/06/19 0338 Order Status: Completed Lab Status: Final result Updated: 04/12/1952 Specimen: Peripheral Blood Special Requests R WRIST Special Requests Testing performed at [facility];[address] [place] [address] RESULT NO GROWTH 6 DAYS RESULT Testing performed at [facility], [address] [place] [address] Comment: Testing performed at [facility], [address] [place] [address] Culture, Blood [[id number]] Collected: 04/06/19 0331 Order Status: Completed Lab Status: Final result Updated: 04/12/1952 Specimen: Peripheral Blood Special Requests L WRIST Special Requests Testing performed at [facility];[address] [place] [address] RESULT NO GROWTH 6 DAYS RESULT Testing performed at [facility], [address] [place] [address] Comment: Testing performed at [facility], [address] [place] [address] Microbiology Results (72 hrs) No results found [...] might be different from the o sheryl. [facility] Service: Vascular Surgery Progress Note SUBJECTIVE Patient Summary: 74 y.o. man with complex medical issues and LE ischemic ulcers, he wa s recently admitted to the [facility] from 03/28/19 to 04/04/19 where he was treated/ diagnosed with systolic heart failure, type 2 IA/NSTEMI, SHAE, ARF. O2 desaturation brought him from SNF to [facility] and current admission today with CHF and [...] Rachel Patino RN - 04/19/2019 5:46 AM [id number] left foot dressing change complete per order. [...] Grover Shaver MD - 4:52 PM PST [facility] Service: Hospitalist Progress Note Pt: Reagan Shepard AGE/SEX: 74 y.o. male ROOM: [facility] OR INTRA OP POOL/[facility]* : 1945 PCP: Jamar Manuel MD ADMIT DATE: 04/06/2019 TODAY'S DATE: 04/18/2019 Hospital Day/Hospital Course: LOS: 12 days Mr. Shepard is a 74-year-old gentleman with a history of bilateral nonhealing diabetic trisha t ulcers, and history of TBI, stroke, insulin dependent DM, who presents with CHF exacerbati on with hospital course complicated by gross hematuria. Recent history notable for admit to [facility] from 03/28/19 to 04/04/2019 for CHF exacerbation with eventual dischar ge to [facility]. He then re-presented to [...] the last 72 hours. IMAGING: Reviewed in [facility], no new results. PROBLEM LIST Principal Problem: [...] Received 8 days of IV antibiotics at [facility] discharged home on with augmentin, now readmitted on 04/06 at [facility] and started on rocephin after sending [...] SQH Code status: Full Dispo: back to [facility] pending cardiac evaluation/optimization, vascular bypass donna [...] might be different from t kevin original. [facility] Service: Infectious Diseases Progress Note Hospital [...] Component Value Units Date/Time Culture, Wound, Superficial [[id number]] (Abnormal) (Susceptibility) Collected: 04/06/19 1546 Order Status: Completed Lab Status: Final result Updated: 04/11/19 0728 Specimen: Body Fluid from Heel, Right Special Requests LT FOOT Special Requests Testing performed at [facility];[address] [place] [address];[place] [address] RESULT -- 1+ ENTEROCOCCUS FAECALIS Aminoglycosides (except [...] Sensitive SUSCEPTIBLE JESSICA Final Testing performed at [facility], [address] [place] [address] Culture, Wound, Superficial [[id number]] Collected: 04/06/19 1546 Order Status: Completed Lab Status: Final result Updated: 04/08/1937 Specimen: Body Fluid from Heel, Right Special Requests RIGHT FOOT Special Requests Testing performed at [facility];[address] [place] [address] RESULT -- 1+ NORMAL SKIN CELSA ISOLATED RESULT NO FURTHER WORKUP RESULT Testing performed at [facility], [address] [place] [address] Comment: Testing performed at [facility], [address] [place] [address] Culture, Blood [[id number]] Collected: 04/06/198 Order Status: Completed Lab Status: Final result Updated: 04/12/1952 Specimen: Peripheral Blood Special Requests R WRIST Special Requests Testing performed at [facility];[address] [place] [address] RESULT NO GROWTH 6 DAYS RESULT Testing performed at [facility], [address] [place] [address] Comment: Testing performed at [facility], [address] [place] [address] Culture, Blood [[id number]] Collected: 04/06/19330 Order Status: Completed Lab Status: Final result Updated: 04/12/1952 Specimen: Peripheral Blood Special Requests L WRIST Special Requests Testing performed at [facility];[address] [place] [address] RESULT NO GROWTH 6 DAYS RESULT Testing performed at [facility], [address] [place] [address] Comment: Testing performed at [facility], [address] [place] [address] Microbiology Results (72 hrs) No results found [...] might be different from the o riginal. [facility] Service: Vascular Surgery Progress Note SUBJECTIVE Patient Summary: 74 y.o. man with complex medical issues and LE ischemic ulcers, he wa s recently admitted to the [facility] from 03/28/19 to 04/04/19 where he was treated/ diagnosed with systolic heart failure, type 2 IA/NSTEMI, SHAE, ARF. O2 desaturation brought him from SNF to [facility] and current admission today with CHF and [...] of shift chart check review Sunshine Chen [facility] - 04/17/2019 1:38 PM PST Vancomycin Dosing [...] as indicated. Thank You, Sunshine Love, PharmD, [facility] 04/17/19 1:38 PM Grover Shaver MD - 04/17/2019 12:25 PM PST [facility] Service: Hospitalist Progress Note Pt: Reagan Shepard AGE/SEX: 74 y.o. male ROOM: [address] [place] [address] : 1945 PCP: Jamar Manuel MD ADMIT DATE: 04/06/2019 TODAY'S DATE: 04/17/2019 Hospital Day/Hospital Course: LOS: 11 days Mr. Shepard is a 74-year-old gentleman with a history of bilateral nonhealing diabetic trisha t ulcers, and history of TBI, stroke, insulin dependent DM, who presents with CHF exacerbati on with hospital course complicated by gross hematuria. Recent history notable for admit to [facility] from 03/28/19 to 04/04/2019 for CHF exacerbation with eventual dischar ge to [facility]. He then re-presented to [...] the last 72 hours. IMAGING: Reviewed in [facility], no new results. PROBLEM LIST Principal Problem: [...] Received 8 days of IV antibiotics at [facility] discharged home on with augmentin, now readmitted on 04/06 at [facility] and started on rocephin after sending [...] SQH Code status: Full Dispo: back to [facility] pending cardiac evaluation/optimization, vascular bypass donna wero, final ID recs, tentatively planning for ~04/21 Grover Charles MD 12:25 PM 04/17/2019 Portions of this chart may have been copied from previous notes for continuity of care purp ose Rico Modi MD - 11:19 AM PST [facility] Service: Cardiology/[facility] Interventional cardiology note RE: Reagan [...] might be different from the origi nal. [facility] Service: Infectious Diseases Progress Note Hospital [...] Component Value Units Date/Time Culture, Wound, Superficial [[id number]] (Abnormal) (Susceptibility) Collected: 04/06/19 1546 Order Status: Completed Lab Status: Final result Updated: 04/11/19 0728 Specimen: Body Fluid from Heel, Right Special Requests LT FOOT Special Requests Testing performed at [facility];[address] [place] [address];[place] [address] RESULT -- 1+ ENTEROCOCCUS FAECALIS Aminoglycosides (except [...] Sensitive SUSCEPTIBLE JESSICA Final Testing performed at [facility], [address] [place] [address] Culture, Wound, Superficial [[id number]] Collected: 04/06/19 1546 Order Status: Completed Lab Status: Final result Updated: 04/08/19 0937 Specimen: Body Fluid from Heel, Right Special Requests RIGHT FOOT Special Requests Testing performed at [facility];[address] [place] [address] RESULT -- 1+ NORMAL SKIN CELSA ISOLATED RESULT NO FURTHER WORKUP RESULT Testing performed at [facility], [address] [place] [address] Comment: Testing performed at [facility], [address] [place] [address] Culture, Blood [[id number]] Collected: 04/06/19 0338 Order Status: Completed Lab Status: Final result Updated: 04/12/19 0652 Specimen: Peripheral Blood Special Requests R WRIST Special Requests Testing performed at [facility];[address] [place] [address] RESULT NO GROWTH 6 DAYS RESULT Testing performed at [facility], [address] [place] [address] Comment: Testing performed at [facility], [address] [place] [address] Culture, Blood [[id number]] Collected: 04/06/19 0331 Order Status: Completed Lab Status: Final result Updated: 04/12/19 0652 Specimen: Peripheral Blood Special Requests L WRIST Special Requests Testing performed at [facility];[address] [place] [address]91 RESULT NO GROWTH 6 DAYS RESULT Testing performed at [facility], [address] [place] [address] Comment: Testing performed at [facility], [address] [place] [address] Microbiology Results (72 hrs) No results found [...] might be different from the o sheryl. [facility] Service: Vascular Surgery Progress Note SUBJECTIVE Patient Summary: 74 y.o. man with complex medical issues and LE ischemic ulcers, he wa s recently admitted to the [facility] from 03/28/19 to 04/04/19 where he was treated/ diagnosed with systolic heart failure, type 2 IA/NSTEMI, SHAE, ARF. O2 desaturation brought him from SNF to [facility] and current admission today with CHF and [...] Sánchez MD - 04/16/2019 6:49 PM PST [facility] Service: Infectious Diseases Progress Note Hospital [...] Component Value Units Date/Time Culture, Wound, Superficial [[id number]] (Abnormal) (Susceptibility) Collected: 04/06/19 1546 Order Status: Completed Lab Status: Final result Updated: 04/11/19 4455 Specimen: Body Fluid from Heel, Right Special Requests LT FOOT Special Requests Testing performed at [facility];[address] [place] [address] RESULT -- 1+ ENTEROCOCCUS FAECALIS Aminoglycosides (except [...] Sensitive SUSCEPTIBLE JESSICA Final Testing performed at [facility], [address] [place] [address] Culture, Wound, Superficial [[id number]] Collected: 04/06/19 1546 Order Status: Completed Lab Status: Final result Updated: 04/08/19 0937 Specimen: Body Fluid from Heel, Right Special Requests RIGHT FOOT Special Requests Testing performed at [facility];[address] [place] [address] RESULT -- 1+ NORMAL SKIN CELSA ISOLATED RESULT NO FURTHER WORKUP RESULT Testing performed at [facility], [address] [place] [address] Comment: Testing performed at [facility], [address] [place] [address] Culture, Blood [[id number]] Collected: 04/06/19 0338 Order Status: Completed Lab Status: Final result Updated: 04/12/19 0652 Specimen: Peripheral Blood Special Requests R WRIST Special Requests Testing performed at [facility];[address] [place] [address] RESULT NO GROWTH 6 DAYS RESULT Testing performed at [facility], [address] [place] [address] Comment: Testing performed at [facility], [address] [place] [address], [place] [address] Culture, Blood [[id number]] Collected: 04/06/19 0331 Order Status: Completed Lab Status: Final result Updated: 04/12/1952 Specimen: Peripheral Blood Special Requests L WRIST Special Requests Testing performed at [facility];[address] [place] [address];[place] [address] RESULT NO GROWTH 6 DAYS RESULT Testing performed at [facility], [address] [facility], [place] [address] Comment: Testing performed at [facility], [address] [place] [address], [place] [address] Microbiology Results (72 hrs) No results found [...] note might be different from the original. [facility] Service: Hospitalist Progress Note Pt: Reagan Shepard AGE/SEX: 74 y.o. male ROOM: [address] [place] [address] : 1945 PCP: Jamar Manuel MD ADMIT DATE: 04/06/2019 TODAY'S DATE: 04/16/2019 Hospital Day/Hospital Course: LOS: 10 days Mr. Shepard is a 74-year-old gentleman with a history of bilateral nonhealing diabetic trisha t ulcers, and history of TBI, stroke, insulin dependent DM, who presents with CHF exacerbati on with hospital course complicated by gross hematuria. Recent history notable for admit to [facility] from 03/28/19 to 04/04/2019 for CHF exacerbation with eventual dischar ge to [facility]. He then re-presented to [...] Received 8 days of IV antibiotics at [facility] discharged home on with augmentin, now readmitted on 04/06 at [facility] and started on rocephin after sending [...] SQH Code status: Full Dispo: back to [facility] pending cardiac evaluation/optimization, vascular bypass donna [...] Rodrigez RD 04/16/2019 3:21 PM Sunshine Chen, [facility] - 04/16/2019 12:18 PM PST Vancomycin Dosing [...] Patient encouraged to discuss medication changes with trainer argini stanley to stopping medications or making any changes. Patient's questions answered. Heart Fail ure Hot Line number provided to patient. Face to face time was spent with patient providing counseling and education for congestive heart failure. Bhanu Wakefield P A-C - 04/16/2019 8:43 AM PST [facility] Service: Vascular Surgery Progress Note SUBJECTIVE Patient Summary: 74 y.o. man with complex medical issues and LE ischemic ulcers, he wa s recently admitted to the [facility] from 03/28/19 to 04/04/19 where he was treated/ diagnosed with systolic heart failure, type 2 IA/NSTEMI, SHAE, ARF. O2 desaturation brought him from SNF to [facility] and current admission today with CHF and [...] MD - 04/15/2019 1 2:48 PM PST [facility] Service: Hospitalist Progress Note Pt: Reagan Shepard AGE/SEX: 74 y.o. male ROOM: [facility]/4[facility]- : 1945 PCP: Jamar Manuel MD ADMIT DATE: 04/06/2019 TODAY'S DATE: 04/15/2019 Hospital Day/Hospital Course: LOS: 9 days Mr. Shepard is a 74-year-old gentleman with a history of bilateral nonhealing diabetic trisha t ulcers, and history of TBI, stroke, insulin dependent DM, who presents with CHF exacerbati on with hospital course complicated by gross hematuria. Recent history notable for admit to [facility] from 03/28/19 to 04/04/2019 for CHF exacerbation with eventual dischar ge to [facility]. He then re-presented to [...] 04/14/19 0629 BNP 587.58* IMAGING: Reviewed in [facility], no new results. PROBLEM LIST Principal Problem: [...] risk stratification . -cardiology consulted -[place] at [place] for nuc med stress test in morning [...] Received 8 days of IV antibiotics at [facility] discharged home on with augmentin, now readmitted on 04/06 at [facility] and started on rocephin after sending [...] SQH Code status: Full Dispo: back to [facility] pending cardiac evaluation/optimization, vascular bypass donna wero, final ID recs, likely 4-5 more days in hospital Grover Charles MD 12:48 PM 04/15/2019 Portions of this chart may have been copied from previous notes for continuity of care purp ose roctor, Sheila Brown [facility] - 04/15/2019 10:55 AM PST Vancomycin Dosing [...] might be differ ent from the original. [facility] Service: Infectious Diseases Progress Note Hospital [...] Component Value Units Date/Time Culture, Wound, Superficial [[id number]] (Abnormal) (Susceptibility) Collected: 04/06/19 1546 Order Status: Completed Lab Status: Final result Updated: 04/11/19 0728 Specimen: Body Fluid from Heel, Right Special Requests LT FOOT Special Requests Testing performed at [facility];[address] [place] [address] 99913 RESULT -- 1+ ENTEROCOCCUS FAECALIS Aminoglycosides (except [...] Sensitive SUSCEPTIBLE JESSICA Final Testing performed at [facility], [address] [place] [address] 52779 Culture, Wound, Superficial [[id number]] Collected: 04/06/19 1546 Order Status: Completed Lab Status: Final result Updated: 04/08/19 0937 Specimen: Body Fluid from Heel, Right Special Requests RIGHT FOOT Special Requests Testing performed at [facility];[address] [place] [address] 18956 RESULT -- 1+ NORMAL SKIN CELSA ISOLATED RESULT NO FURTHER WORKUP RESULT Testing performed at [facility], [address] [place] [address] Comment: Testing performed at [facility], [address] [place] [address] 44420 Culture, Blood [[id number]] Collected: 04/06/19 0338 Order Status: Completed Lab Status: Final result Updated: 04/12/1952 Specimen: Peripheral Blood Special Requests R WRIST Special Requests Testing performed at [facility];[address] [place] [address] 80681 RESULT NO GROWTH 6 DAYS RESULT Testing performed at [facility], [address] [place] [address] 87287 Comment: Testing performed at [facility], [address] [place] [address] 20838 Culture, Blood [[id number]] Collected: 04/06/19 0331 Order Status: Completed Lab Status: Final result Updated: 04/12/1952 Specimen: Peripheral Blood Special Requests L WRIST Special Requests Testing performed at [facility];[address] [place] [address] 67364 RESULT NO GROWTH 6 DAYS RESULT Testing performed at [facility], [facility] [place] [address] Comment: Testing performed at [facility], [address] [place] [address] 46810 Microbiology Results (72 hrs) No results found [...] note might be different from the origin [facility] Service: Hospitalist Progress Note Pt: Reagan Shepard [...] hematuria. Recent history notable for admit to [facility] from 03/28/19 to 04/04/2019 for CHF exacerbation with eventual dischar ge to [facility]. He then re-presented to [...] 04/14/19 0629 BNP 587.58* IMAGING: Reviewed in [facility], no new results. PROBLEM LIST Principal Problem: [...] Received 8 days of IV antibiotics at [facility] discharged home on with augmentin, now readmitted on 04/06 at [facility] and started on rocephin after sending [...] date with age appropriate cancer screening PPx: [facility] Code status: Full Dispo: back to [facility] pending improvement in gross hematuria, CHF exacerbation, re peat angiogram, final ID recs, likely 4-5 more days in hospital Grover Charles MD 1:29 PM 04/14/2019 Portions of this chart may have been copied from previous notes for continuity of care purp ose Lyric Molina RN - 04/14/2019 1:27 PM PST [facility] Service: Wound Care Follow Up Note [...] any additional questions. Lyric Mclain RN, CMSRN, [facility] Inpatient Wound Ostomy Care [phone] 04/14/2019 1:29 PM Dheeraj Barraza, PT - [...] vs stable.Vandana Luciano RN obrandi, Meghan Wolff, [facility] - 04/14/2019 6:31 AM PST Vancomycin Dosing [...] indicated. Thank You, Meghan Calvillo, Pharm D, [facility] 04/14/2019, 6:19 AM Vancomycin Dosing History [...] Shaver MD - 04/13/2019 4:02 PM PST [facility] Service: Hospitalist Progress Note Pt: Reagan Shepard AGE/SEX: 74 y.o. male ROOM: [address] [place] [address] : 1945 PCP: Jamar Manuel MD ADMIT DATE: 04/06/2019 TODAY'S DATE: 04/13/2019 Hospital Day/Hospital Course: LOS: 7 days Mr. Shepard is a 74-year-old gentleman with a history of bilateral nonhealing diabetic trisha t ulcers, and history of TBI, stroke, insulin dependent DM, who presents with CHF exacerbati on with hospital course complicated by gross hematuria. Recent history notable for admit to [facility] from 03/28/19 to 04/04/2019 for CHF exacerbation with eventual dischar ge to [facility]. He then re-presented to [...] Received 8 days of IV antibiotics at [facility] discharged home on with augmentin, now readmitted on 04/06 at [facility] and started on rocephin after sending [...] date with age appropriate cancer screening PPx: [facility] Code status: Full Dispo: back to [facility] pending improvement in gross hematuria, CHF [...] 113.3 kg Adjusted body weight: 89.1 kg [facility] body weight: 73 kg Current Vital Signs: [...] [facility]ing a level once the patient [...] as indicated. Thank You, Sunshine Love, PharmD, [facility] 04/13/19 3:20 PM Nandini Sánchez se, MD - 04/13/2019 10:54 AM PST [facility] Service: Infectious Diseases Progress Note Hospital [...] Component Value Units Date/Time Culture, Wound, Superficial [[id number]] (Abnormal) (Susceptibility) Collected: 04/06/19 1546 Order Status: Completed Lab Status: Final result Updated: 04/11/19 0728 Specimen: Body Fluid from Heel, Right Special Requests LT FOOT Special Requests Testing performed at [facility];[address] [place] [address];[place] [address] RESULT -- 1+ ENTEROCOCCUS FAECALIS Aminoglycosides (except [...] Sensitive SUSCEPTIBLE JESSICA Final Testing performed at [facility], [address] [place] [address] 90878 Culture, Wound, Superficial [[id number]] Collected: 04/06/19 1546 Order Status: Completed Lab Status: Final result Updated: 04/08/1937 Specimen: Body Fluid from Heel, Right Special Requests RIGHT FOOT Special Requests Testing performed at [facility];[address] [place] [address] 28830 RESULT -- 1+ NORMAL SKIN CELSA ISOLATED RESULT NO FURTHER WORKUP RESULT Testing performed at [facility], [address] [place] [address] Comment: Testing performed at [facility], [address] [place] [address] 54816 Culture, Blood [[id number]] Collected: 04/06/198 Order Status: Completed Lab Status: Final result Updated: 04/12/1952 Specimen: Peripheral Blood Special Requests R WRIST Special Requests Testing performed at [facility];[address] [place] [address] 76067 RESULT NO GROWTH 6 DAYS RESULT Testing performed at [facility], [address] [place] [address] 43971 Comment: Testing performed at [facility], [address] [place] [address] 70059 Culture, Blood [[id number]] Collected: 04/06/19330 Order Status: Completed Lab Status: Final result Updated: 04/12/1952 Specimen: Peripheral Blood Special Requests L WRIST Special Requests Testing performed at [facility];[address] [place] [address] 42460 RESULT NO GROWTH 6 DAYS RESULT Testing performed at [facility], [address] [place] [address] 17431 Comment: Testing performed at [facility], [address] [place] [address] 05576 Microbiology Results (72 hrs) No results found [...] might be different from the o sheryl. [facility] Service: Vascular Surgery Progress Note SUBJECTIVE Patient Summary: 74 y.o. man with complex medical issues and LE ischemic ulcers, he wa s recently admitted to the [facility] from 03/28/19 to 04/04/19 where he was treated/ diagnosed with systolic heart failure, type 2 IA/NSTEMI, SHAE, ARF. O2 desaturation brought him from SNF to [facility] and current admission today with CHF and [...] risks. Signed consent obtained. Will proceed to [facility] [employer] today for right leg angiogram. Moderate Sedation [...] might be different from the o riginal. [facility] Service: Infectious Diseases Progress Note Hospital [...] Component Value Units Date/Time Culture, Wound, Superficial [[id number]] (Abnormal) (Susceptibility) Collected: 04/06/19 1546 Order Status: Completed Lab Status: Final result Updated: 04/11/19 0728 Specimen: Body Fluid from Heel, Right Special Requests LT FOOT Special Requests Testing performed at [facility];[address] [place] [address];[place] [address] RESULT -- 1+ ENTEROCOCCUS FAECALIS Aminoglycosides (except [...] Sensitive SUSCEPTIBLE JESSICA Final Testing performed at [facility], [address] [place] [address] 78986 Culture, Wound, Superficial [[id number]] Collected: 04/06/19 1546 Order Status: Completed Lab Status: Final result Updated: 04/08/19 0937 Specimen: Body Fluid from Heel, Right Special Requests RIGHT FOOT Special Requests Testing performed at [facility];[address] [place] [address] 21394 RESULT -- 1+ NORMAL SKIN CELSA ISOLATED RESULT NO FURTHER WORKUP RESULT Testing performed at [facility], [address] [place] [address] Comment: Testing performed at [facility], [address] [place] [address] 26273 Culture, Blood [[id number]] Collected: 04/06/19 0338 Order Status: Completed Lab Status: Final result Updated: 04/12/19 0652 Specimen: Peripheral Blood Special Requests R WRIST Special Requests Testing performed at [facility];[address] [place] [address] 03146 RESULT NO GROWTH 6 DAYS RESULT Testing performed at [facility], [address] [place] [address] Comment: Testing performed at [facility], [address] [place] [address] 27279 Culture, Blood [[id number]] Collected: 04/06/19 0331 Order Status: Completed Lab Status: Final result Updated: 04/12/19 0652 Specimen: Peripheral Blood Special Requests L WRIST Special Requests Testing performed at [facility];[address] [place] [address];[place] [address] RESULT NO GROWTH 6 DAYS RESULT Testing performed at [facility], [address] [place] [address] Comment: Testing performed at [facility], [address] [place] [address], [place] [address] Microbiology Results (72 hrs) No results found [...] might be different from the origi nal. [facility] Service: Hospitalist Progress Note Pt: Reagan [...] hematuria. Recent history notable for admit to [facility] from 03/28/19 to 04/04/2019 for CHF exacerbation with eventual dischar ge to [facility]. He then re-presented to [...] Received 8 days of IV antibiotics at [facility] discharged home on with augmentin, now readmitted on 04/06 at [facility] and started on rocephin after sending [...] SQH Code status: Full Dispo: back to [facility] pending improvement in gross hematuria, CHF exacerbation, re peat angiogram, final ID recs, likely 4-5 more days in hospital Grover Charles MD 4:43 PM 04/12/2019 Portions of this chart may have been copied from previous notes for continuity of care purp ose Bhanu Wakefield PA-C - 04/12/2019 4:00 PM PST [facility] Service: Vascular Surgery Progress Note SUBJECTIVE Patient Summary: 74 y.o. man with complex medical issues and LE ischemic ulcers, he wa s recently admitted to the [facility] from 03/28/19 to 04/04/19 where he was treated/ diagnosed with systolic heart failure, type 2 IA/NSTEMI, SHAE, ARF. O2 desaturation brought him from SNF to [facility] and current admission today with CHF and [...] Bhanu Seaman PA-C Vascular Surgery roSunshine streeter, [facility] - 04/12/2019 12:27 PM PST Vancomycin Dosing Per Pharmacy Subjective/Objective Reagan Shepard is a 74 y.o. 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 Additional antimicrobials: zosyn Quadriplegic/Paraplegic: no Diabetes: yes Baseline Serum Creatinine: 0.6 mg/dL Actual weight: 113.3 kg Adjusted body weight: 89.1 kg [facility] body weight: 73 kg Current Vital Signs: [...] Shaver MD - 04/11/2019 5:06 PM PST [facility] Service: Hospitalist Progress Note Pt: Reagan [...] hematuria. Recent history notable for admit to [facility] from 03/28/19 to 04/04/2019 for CHF exacerbation with eventual dischar ge to [facility]. He then re-presented to [...] Received 8 days of IV antibiotics at [facility] discharged home on with augmentin, now readmitted on 04/06 at [facility] and started on rocephin after sending [...] above) Code status: Full Dispo: back to [facility] pending improvement in gross hematuria and CHF exacerbation Grover Charles MD 5:06 PM 04/11/2019 Portions of this chart may have been copied from previous notes for continuity of care purp ose roctor, Sheila Brown [facility] - 04/11/2019 2:03 PM PST Vancomycin Dosing Per Pharmacy Subjective/Objective Reagan Shepard is a 74 y.o. 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 Additional antimicrobials: zosyn Quadriplegic/Paraplegic: no Diabetes: yes Baseline Serum Creatinine: 0.6 mg/dL Actual weight: 113.3 kg Adjusted body weight: 89.1 kg [facility] body weight: 73 kg Current Vital Signs: [...] therapy as indicated. Thank You, Sheila Ahuja [facility], 04/11/2019, 1:51 PM Hero Sánchez MD - 04/11/2019 10:09 AM PSTFormatting of this note might be different from stephanie brown original. [facility] Service: Infectious Diseases Progress Note Hospital [...] Component Value Units Date/Time Culture, Wound, Superficial [[id number]] (Abnormal) (Susceptibility) Collected: 04/06/19 154 Order Status: Completed Lab Status: Final result Updated: 04/11/19727 Specimen: Body Fluid from Heel, Right Special Requests LT FOOT Special Requests Testing performed at [facility];[address] [place] [address];[place] [address] RESULT -- 1+ ENTEROCOCCUS FAECALIS Aminoglycosides (except [...] Sensitive SUSCEPTIBLE JESSICA Final Testing performed at [facility], [address] [place] [address], [place] [address] Culture, Wound, Superficial [[id number]] Collected: 04/06/19 1546 Order Status: Completed Lab Status: Final result Updated: 04/08/19936 Specimen: Body Fluid from Heel, Right Special Requests RIGHT FOOT Special Requests Testing performed at [facility];[address] [place] [address] 14103 RESULT -- 1+ NORMAL SKIN CELSA ISOLATED RESULT NO FURTHER WORKUP RESULT Testing performed at [facility], [address] [place] [address] 7[address] Comment: Testing performed at [facility], [address] [place] [address] 11208 Culture, Blood [[id number]] Collected: 04/06/198 Order Status: Completed Lab Status: Preliminary result Updated: 04/07/19812 Specimen: Peripheral Blood Special Requests R WRIST Special Requests Testing performed at [facility];[address] [place] [address] 08289 RESULT NO GROWTH AT THIS TIME RESULT Testing performed at [facility], [address] [place] [address] 07392 Comment: Testing performed at [facility], [address] [place] [address] 95048 Culture, Blood [[id number]] Collected: 04/06/191 Order Status: Completed Lab Status: Preliminary result Updated: 04/07/19812 Specimen: Peripheral Blood Special Requests L WRIST Special Requests Testing performed at [facility];[address] [place] [address] 13343 RESULT NO GROWTH AT THIS TIME RESULT Testing performed at [facility], [address] [place] [address] 23150 Comment: Testing performed at [facility], [address] [place] [address] 32456 Microbiology Results (72 hrs) No results found [...] Shaver MD - 04/10/2019 4:51 PM PST [facility] Service: Hospitalist Progress Note Pt: Reagan Shepard AGE/SEX: 74 y.o. male ROOM: [facility]/4452- : 1945 PCP: Jamar Manuel MD ADMIT DATE: 04/06/2019 TODAY'S DATE: 04/10/2019 Hospital Day/Hospital Course: LOS: 4 days Mr. Shepard is a 74-year-old gentleman with a history of bilateral nonhealing diabetic trisha t ulcers, and history of TBI, stroke, insulin dependent DM, who presents with CHF exacerbati on with hospital course complicated by gross hematuria. Recent history notable for admit to [facility] from 03/28/19 to 04/04/2019 for CHF exacerbation with eventual dischar ge to [facility]. He then re-presented to [...] INR 1.2 PTT 34* IMAGING: Reviewed in [facility], no new results. PROBLEM LIST Principal Problem: [...] Received 8 days of IV antibiotics at [facility] discharged home on with augmentin, now readmitted on 04/06 at [facility] and started on rocephin after sending [...] above) Code status: Full Dispo: back to [facility] pending improvement in gross hematuria and CHF exacerbation Grover Charles MD 4:51 PM 04/10/2019 Portions of this chart may have been copied from previous notes for continuity of care purp ose Hero Sánchez MD - 04/10/2019 2:27 PM PSTFormatting of this note might be different from the ramiro ragsdale. [facility] Service: Infectious Diseases Progress Note Hospital [...] Component Value Units Date/Time Culture, Wound, Superficial [[id number]] (Abnormal) (Susceptibility) Collected: 04/06/191545 Order Status: Completed Lab Status: Preliminary result Updated: 04/10/19929 Specimen: Body Fluid from Heel, Right Special Requests LT FOOT Special Requests Testing performed at [facility];[address] [place] [address];[place] [address] RESULT -- 1+ ENTEROCOCCUS FAECALIS Aminoglycosides (except for high-level resistance testing), cephalosporins, clindamycin, an d trimethoprim-sulfamethoxazole may appear active in vitro but they are not effective clinic ally. RESULT -- 1+ ENTEROBACTER CLOACAE COMPLEX RESULT -- 1+ STAPHYLOCOCCUS AUREUS RESULT SUSCEPTIBILITY TO FOLLOW RESULT Testing performed at [facility], [address] [place] [address] Susceptibility Enterococcus faecalis (1) Antibiotic Interpretation Microscan Method Status Ampicillin Sensitive SUSCEPTIBLE JESSICA Preliminary Penicillin G Sensitive SUSCEPTIBLE JESSICA Preliminary Gent Synergy Resistant RESISTANT JESSICA Preliminary Levofloxacin Sensitive SUSCEPTIBLE JESSICA Preliminary Streptomycin synergy Sensitive SUSCEPTIBLE JESSICA Preliminary Vancomycin Sensitive SUSCEPTIBLE JESSICA Preliminary Enterobacter cloacae complex (2) Antibiotic Interpretation Microscan Method Status Cefazolin Resistant RESISTANT JESSICA Preliminary Cefepime Sensitive SUSCEPTIBLE EJSSICA Preliminary Cefoxitin Resistant RESISTANT JESSICA Preliminary Ceftazidime Sensitive SUSCEPTIBLE JESSICA Preliminary Ceftriaxone Sensitive SUSCEPTIBLE JESSICA Preliminary Ciprofloxacin Sensitive SUSCEPTIBLE JESSICA Preliminary Gentamicin Sensitive SUSCEPTIBLE JESSICA Preliminary Levofloxacin Sensitive SUSCEPTIBLE JESSICA Preliminary Tobramycin Sensitive SUSCEPTIBLE JESSICA Preliminary Trimethoprim + Sulfamethoxazole Sensitive SUSCEPTIBLE JESSICA Preliminary Testing performed at [facility], [address] [place] [address], [place] [address] Culture, Wound, Superficial [[id number]] Collected: 04/06/191545 Order Status: Completed Lab Status: Final result Updated: 04/08/1937 Specimen: Body Fluid from Heel, Right Special Requests RIGHT FOOT Special Requests Testing performed at [facility];[address] [place] [address] 92573 RESULT -- 1+ NORMAL SKIN CELSA ISOLATED RESULT NO FURTHER WORKUP RESULT Testing performed at [facility], [address] [place] [address] 17815 Comment: Testing performed at [facility], [address] [place] [address] 87593 Culture, Blood [[id number]] Collected: 04/06/19337 Order Status: Completed Lab Status: Preliminary result Updated: 04/07/19812 Specimen: Peripheral Blood Special Requests R WRIST Special Requests Testing performed at [facility];[address] [place] [address] 63388 RESULT NO GROWTH AT THIS TIME RESULT Testing performed at [facility], [address] [place] [address] 14037 Comment: Testing performed at [facility], [address] [place] [address] 67735 Culture, Blood [[id number]] Collected: 04/06/19330 Order Status: Completed Lab Status: Preliminary result Updated: 04/07/19812 Specimen: Peripheral Blood Special Requests L WRIST Special Requests Testing performed at [facility];[address] [place] [address] 71195 RESULT NO GROWTH AT THIS TIME RESULT Testing performed at [facility], [address] [place] [address]368 Comment: Testing performed at [facility], [address] [place] [address] 54511 Microbiology Results (72 hrs) No results found [...] this note might be different from the [facility] Service: [...] of congestive failure. Signed by: Madison Solis [facility] Sign Date/Time: 04/09/2019 9:25 AM US Renal [...] Lujan MD - 04/09/2019 6:21 PM PST [facility] Service: Urology Progress Note Hospital Day: [...] Color, UA STRAW Clarity, UA CLEAR Specific [place], Urine 1.006 1.002 - 1.030 Leukocyte esterase, [...] the hypoinflation. 4. No pneumothorax. Signed by: Maidson Houser, Toby Sign Date/Time: 04/06/2019 6:40 AM [...] of congestive failure. Signed by: Madison Solis, [facility] Sign Date/Time: 04/09/2019 9:25 AM PROBLEM LIST [...] longstanding history of diabetes, hypertension, GERD, ac morongo left hemiparesis, essential hypertension and very advanced [...] this note might be different from the [facility]: Vascular Surgery Progress Note SUBJECTIVE Patient Summary: 74 y.o. man with complex medical issues and LE ischemic ulcers, he wa s recently admitted to the [facility] from 03/28/19 to 04/04/19 where he was treated/ diagnosed with systolic heart failure, type 2 IA/NSTEMI, SHAE, ARF. O2 desaturation brought him from SNF to [facility] and current admission today with CHF and [...] will have him scheduled for 04/12/2019 at [facility] [employer] for his first leg, then will plan [...] Hospitalist Progress Note Reagan Shepard 74 y.o. [id number] male Jamar Manuel MD Hospital Day: LOS: 3 days Patient Summary: 74-year-old gentleman with past medical history of bilateral nonheali ng diabetic foot ulcer, and history of traumatic brain injury, stroke, diabetes mellitus typ e 2 insulin-dependent who was recently admitted to [facility] from 03/28/21 020 with acute hypoxic respiratory failure secondary to systolic CHF exacerbation with eject ion fraction of 40%, CTA chest negative for PE, troponin was minimally elevated 0.44 treated conservatively with medical therapy discharge to [facility] who went back to [facility] emergency department with worsening shortness of [...] 04/09/2019 1044 Gross per 24 hour Intake 44927 ml Output 9850 ml Net 856 ml [...] received 8 days of IV antibiotic at [facility] discharged home on on Augmentin readmitted on at [facility] and started on Rocephin after sending 2 [...] might be different from the o riginal. [facility] Service: Podiatry Progress Note Hospital Day: LOS: 3 days Post-Op Day: * No surgery found * SUBJECTIVE Patient Summary: The patient is 74 y.o. male with significant cardiac and IDDM2 past medical history with recent admissions to [facility] where he was found to have el evated troponin level and he became decompensated and desaturated and was transferred to [facility] for a higher level of care. [...] Ady Mata RN - 04/08/2019 9:49 PM [id number]: pt a/o to all, vss. cbi in [...] Hospitalist Progress Note Reagan Shepard 74 y.o. [id number] male Jamar Manuel MD Hospital Day: LOS: 2 days Patient Summary: 74-year-old gentleman with past medical history of bilateral nonheali ng diabetic foot ulcer, and history of traumatic brain injury, stroke, diabetes mellitus typ e 2 insulin-dependent who was recently admitted to [facility] from 03/28/21 020 with acute hypoxic respiratory failure secondary to systolic CHF exacerbation with eject ion fraction of 40%, CTA chest negative for PE, troponin was minimally elevated 0.44 treated conservatively with medical therapy discharge to [facility] who went back to [facility] emergency department with worsening shortness of [...] received 8 days of IV antibiotic at [facility] discharged home on on Augmentin readmitted on at [facility] and started on Rocephin after sending 2 set of blood cultures which remain negative. We will continue the patient on Rocephin IV while in the hospital then discharge home on Augmentin Anemia secondary to iron deficiency Plan continue on IV iron to, guaiac stools pending Hypomagnesemia repleted DVT prophylaxis on heparin currently on hold due to hematuria Ady Yin MD 04/08/2019 avage, Bryaden Jennings MD - 04/08/2019 10:47 AM PSTFormatting of this note might be different from th e original. [facility] Service: Cardiology Progress Note Hospital Day: [...] Nandini Barboza RN - 04/07/2019 10:48 PM [id number]: pt a/o to all, occasionally forgetful, vss. [...] Hospitalist Progress Note Reagan Shepard 74 y.o. [id number] male Jamar Manuel MD Hospital Day: LOS: 1 day Patient Summary: 74-year-old gentleman with past medical history of bilateral nonheali ng diabetic foot ulcer, and history of traumatic brain injury, stroke, diabetes mellitus typ e 2 insulin-dependent who was recently admitted to [facility] from 03/28/21 020 with acute hypoxic respiratory failure secondary to systolic CHF exacerbation with eject ion fraction of 40%, CTA chest negative for PE, troponin was minimally elevated 0.44 treated conservatively with medical therapy discharge to [facility] who went back to [facility] emergency department with worsening shortness of [...] received 8 days of IV antibiotic at [facility] discharged home on on Augmentin readmitted on at [facility] and started on Rocephin after sending 2 [...] might be different from th e original. [facility] Service: Cardiology Progress Note Hospital Day: [...] Novoa RN - 04/06/2019 10:15 AM [facility] Service: Wound/Ostomy Care Progress Note Wound care [...] | | | right foot ([facility]) | 04/20/2019 until | | | | | | 04/20/2020 | + +---------+--------+ + + | Comprehensive | Lab | Routin | Other | Weekly for 2 | | Metabolic Panel | | e | osteomyelitis of | Occurrences starting | | | | | right foot ([facility]) | 04/20/2019 until | | | | | | 04/20/2020 | + +---------+--------+ + + | C-Reactive Protein | Lab | Routin | Other | Weekly for 6 | | | | e | osteomyelitis of | Occurrences starting | | | | | right foot ([facility]) | 04/20/2019 until | | | | | | 04/20/2020 | + +---------+--------+ + + | Sedimentation Rate | Lab | Routin | Other | Weekly for 6 | | | | e | osteomyelitis of | Occurrences starting | | | | | right foot ([facility]) | 04/20/2019 until | | [...] | | | PST | ([facility]) Peripheral | | | | | | vascular disease | | | | | | ([facility]) Other | | | | | | osteomyelitis of | | | | | | right foot ([facility]) | | | | | | Essential | | | | | | hypertension Acute | | | | | | left hemiparesis | | | | | | ([facility]) | | + +--------+ + [...] | | | | | performed at [facility];[address] | | | | | | [address];[place], [place] | | | | | | [address] | | | | + + + + + + + + | Specimen | + + | Blood | + + + + + + + | Performing | Address | City/State/Zipcode | Phone Number | | Organization | | | | + + + + + | [facility] | [address] | [place] [address] | [phone] | + + + + + POC [...] | | | POC | performed at [facility];[address] | | LABORATORY | | | | [address];[place], [place] | | | | | | [address] | | | | + + + + + + + + | Specimen | + + | | + + + + + + + | Performing | Address | City/State/Zipcode | Phone Number | | Organization | | | | + + + + + | [facility] | [address] | [place] [address] | [phone] | + + + + + POC [...] | | | POC | performed at [facility];[address] | | LABORATORY | | | | [address];[place] | | | | | | [address] | | | | + + + + + + + + | Specimen | + + | | + + + + + + + | Performing | Address | City/State/Zipcode | Phone Number | | Organization | | | | + + + + + | [facility] | [address] | [place] [address] | [phone] | + + + + + POC Glucose (04/21/2019 5:12 AM PST) + + + + + + | Component | Value | Ref Range | Performed | Pathologist | | | | | At | Signature | + + + + + + | Glucose, | 146 (H)Comment: Testing | 65 - 99 mg/dL | [facility] | | | POC | performed at [facility];[address] | | LABORATORY | | | | [address];[place], [place] | | | | | | [address] | | | | + + + + + + + + | Specimen | + + | | + + + + + + + | Performing | Address | City/State/Zipcode | Phone Number | | Organization | | | | + + + + + | [facility] | [address] | [place] [address] | [phone] | + + + + + POC [...] | | | POC | performed at [facility];[address] | | LABORATORY | | | | [address];[place] | | | | | | [address] | | | | + + + + + + + + | Specimen | + + | | + + + + + + + | Performing | Address | City/State/Zipcode | Phone Number | | Organization | | | | + + + + + | [facility] | [address] | [place] [address] | [phone] | + + + + + POC Glucose (04/20/2019 5:30 PM PST) + + + + + + | Component | Value | Ref Range | Performed | Pathologist | | | | | At | Signature | + + + + + + | Glucose, | 220 (H)Comment: Testing | 65 - 99 mg/dL | [facility] | | | POC | performed at [facility];[address] | | LABORATORY | | | | [address];[place] | | | | | | [address] | | | | + + + + + + + + | Specimen | + + | | + + + + + + + | Performing | Address | City/State/Zipcode | Phone Number | | Organization | | | | + + + + + | [facility] | [address] | [place] [address] | [phone] | + + + + + POC Glucose (04/20/2019 5:04 PM PST) + + + + + + | Component | Value | Ref Range | Performed | Pathologist | | | | | At | Signature | + + + + + + | Glucose, | 199 (H)Comment: Testing | 65 - 99 mg/dL | [facility] | | | POC | performed at [facility];[address] | | LABORATORY | | | | [address];[place] | | | | | | [address] | | | | + + + + + + + + | Specimen | + + | | + + + + + + + | Performing | Address | City/State/Zipcode | Phone Number | | Organization | | | | + + + + + | [facility] | [address] | [place] [address] | [phone] | + + + + + POC [...] | | | POC | performed at [facility];[address] | | LABORATORY | | | | [address];[place], [place] | | | | | | [address] | | | | + + + + + + + + | Specimen | + + | | + + + + + + + | Performing | Address | City/State/Zipcode | Phone Number | | Organization | | | | + + + + + | [facility] | [address] | [place] [address] | [phone] | + + + + + Vancomycin Level (04/20/2019 12:39 PM PST) + + + + + + | Component | Value | Ref Range | Performed | Pathologist | | | | | At | Signature | + + + + + + | Vancomycin | 18.3Comment: Testing | ug/mL | [facility] | | | Random, | performed at [facility];[address] | | LABORATORY | | | Serum | [address];[place] | | | | | | [address] | | | | + + + + + + + + | Specimen | + + | Blood | + + + + + + + | Performing | Address | City/State/Zipcode | Phone Number | | Organization | | | | + + + + + | [facility] | [address] | [place] [address] | [phone] | + + + + + POC Glucose (04/20/2019 8:58 AM PST) + + + + + + | Component | Value | Ref Range | Performed | Pathologist | | | | | At | Signature | + + + + + + | Glucose, | 244 (H)Comment: Testing | 65 - 99 mg/dL | [facility] | | | POC | performed at [facility];[address] | | LABORATORY | | | | [address];[place] | | | | | | [address] | | | | + + + + + + + + | Specimen | + + | | + + + + + + + | Performing | Address | City/State/Zipcode | Phone Number | | Organization | | | | + + + + + | [facility] | [address] | [place] [address] | [phone] | + + + + + POC Glucose (04/20/2019 8:16 AM PST) + + + + + + | Component | Value | Ref Range | Performed | Pathologist | | | | | At | Signature | + + + + + + | Glucose, | 300 (H)Comment: Testing | 65 - 99 mg/dL | [facility] | | | POC | performed at [facility];[address] | | LABORATORY | | | | [address];[place], [place] | | | | | | [address] | | | | + + + + + + + + | Specimen | + + | | + + + + + + + | Performing | Address | City/State/Zipcode | Phone Number | | Organization | | | | + + + + + | [facility] | [address] | [place] [address] | [phone] | + + + + + POC [...] | | | POC | performed at [facility];[address] | | LABORATORY | | | | [address];[place] | | | | | | [address] | | | | + + + + + + + + | Specimen | + + | | + + + + + + + | Performing | Address | City/State/Zipcode | Phone Number | | Organization | | | | + + + + + | [facility] | [address] | [place] [address] | [phone] | + + + + + POC [...] | | | POC | performed at [facility];[address] | | LABORATORY | | | | [address];[place], [place] | | | | | | [address] | | | | + + + + + + + + | Specimen | + + | | + + + + + + + | Performing | Address | City/State/Zipcode | Phone Number | | Organization | | | | + + + + + | [facility] | [address] | [place] [address] | [phone] | + + + + + POC Glucose (04/19/2019 12:44 PM PST) + + + + + + | Component | Value | Ref Range | Performed | Pathologist | | | | | At | Signature | + + + + + + | Glucose, | 209 (H)Comment: Testing | 65 - 99 mg/dL | [facility] | | | POC | performed at [facility];[address] | | LABORATORY | | | | [address];[place] | | | | | | [address] | | | | + + + + + + + + | Specimen | + + | | + + + + + + + | Performing | Address | City/State/Zipcode | Phone Number | | Organization | | | | + + + + + | [facility] | [address] | [place] [address] | [phone] | + + + + + POC Glucose (04/19/2019 8:13 AM PST) + + + + + + | Component | Value | Ref Range | Performed | Pathologist | | | | | At | Signature | + + + + + + | Glucose, | 176 (H)Comment: Testing | 65 - 99 mg/dL | [facility] | | | POC | performed at [facility];[address] | | LABORATORY | | | | [address];[place], [place] | | | | | | [address] | | | | + + + + + + + + | Specimen | + + | | + + + + + + + | Performing | Address | City/State/Zipcode | Phone Number | | Organization | | | | + + + + + | [facility] | [address] | [place] [address] | [phone] | + + + + + Basic [...] | | | | | performed at [facility], [address] | | | | | | [facility], | | | | | | [place] [address] | | | | + + + + + + + + | Specimen | + + | Blood | + + + + + + + | Performing | Address | City/State/Zipcode | Phone Number | | Organization | | | | + + + + + | [facility] | [address] | [place] [address] | [phone] | + + + + + CBC [...] | | | | | performed at [facility], [address] | | | | | | [address], | | | | | | [place] [address] | | | | | |MICRO | | | | | |NORMAL PLT MORPH | | | | | |Testing performed at [facility], [address], [place] [address] | | | | | | | | | | + + +---- + + + + + | Specimen | + + | Blood | + + + + + + + | Performing | Address | City/State/Zipcode | Phone Number | | Organization | | | | + + + + + | [facility] | [address] | [place] [address] | [phone] | + + + + + POC [...] | | | POC | performed at [facility];[address] | | LABORATORY | | | | [address];[place] | | | | | | [address] | | | | + + + + + + + + | Specimen | + + | | + + + + + + + | Performing | Address | City/State/Zipcode | Phone Number | | Organization | | | | + + + + + | [facility] | [address] | [place] [address] | [phone] | + + + + + POC Glucose (04/18/2019 9:02 PM PST) + + + + + + | Component | Value | Ref Range | Performed | Pathologist | | | | | At | Signature | + + + + + + | Glucose, | 295 (H)Comment: Testing | 65 - 99 mg/dL | [facility] | | | POC | performed at [facility];[address] | | LABORATORY | | | | [address];[place] | | | | | | [address] | | | | + + + + + + + + | Specimen | + + | | + + + + + + + | Performing | Address | City/State/Zipcode | Phone Number | | Organization | | | | + + + + + | [facility] | [address] | [place] [address] | [phone] | + + + + + POC Glucose (04/18/2019 8:01 PM PST) + + + + + + | Component | Value | Ref Range | Performed | Pathologist | | | | | At | Signature | + + + + + + | Glucose, | 245 (H)Comment: Testing | 65 - 99 mg/dL | [facility] | | | POC | performed at [facility];[address] | | LABORATORY | | | | [address];[place] | | | | | | [address] | | | | + + + + + + + + | Specimen | + + | | + + + + + + + | Performing | Address | City/State/Zipcode | Phone Number | | Organization | | | | + + + + + | [facility] | [address] | [place] [address] | [phone] | + + + + + POC Glucose (04/18/2019 6:08 PM PST) + + + + + + | Component | Value | Ref Range | Performed | Pathologist | | | | | At | Signature | + + + + + + | Glucose, | 181 (H)Comment: Testing | 65 - 99 mg/dL | [facility] | | | POC | performed at [facility];[address] | | LABORATORY | | | | [address];[place], [place] | | | | | | [address] | | | | + + + + + + + + | Specimen | + + | | + + + + + + + | Performing | Address | City/State/Zipcode | Phone Number | | Organization | | | | + + + + + | [facility] | [address] | [place] [address] | [phone] | + + + + + POC [...] | | | POC | performed at [facility];[address] | | LABORATORY | | | | [address];[place], [place] | | | | | | [address] | | | | + + + + + + + + | Specimen | + + | | + + + + + + + | Performing | Address | City/State/Zipcode | Phone Number | | Organization | | | | + + + + + | [facility] | [address] | [place] [address] | [phone] | + + + + + NM [...] Testing | 65 - 99 mg/dL | [facility] | | | POC | performed at [facility];[address] | | LABORATORY | | | | [address];[place] | | | | | | [address] | | | | + + + + + + + + | Specimen | + + | | + + + + + + + | Performing | Address | City/State/Zipcode | Phone Number | | Organization | | | | + + + + + | [facility] | [address] | [place] [address] | [phone] | + + + + + Basic [...] | | | | | performed at [facility];[address] | | | | | | [address];[place], [place] | | | | | | [address] | | | | + + + + + + + + | Specimen | + + | Blood | + + + + + + + | Performing | Address | City/State/Zipcode | Phone Number | | Organization | | | | + + + + + | [facility] | [address] | [place] [address] | [phone] | + + + + + CBC [...] | | | Estimate | performed at [facility] | | LABORATORY | | | | [address];[place] | | | | | | [address] | | | | + + + + + + + + | Specimen | + + | Blood | + + + + + + + | Performing | Address | City/State/Zipcode | Phone Number | | Organization | | | | + + + + + | [facility] | [address] | [place] [address] | [phone] | + + + + + POC Glucose (04/17/2019 8:41 PM PST) + + + + + + | Component | Value | Ref Range | Performed | Pathologist | | | | | At | Signature | + + + + + + | Glucose, | 183 (H)Comment: Testing | 65 - 99 mg/dL | [facility] | | | POC | performed at [facility];[address] | | LABORATORY | | | | [address];[place], [place] | | | | | | [address] | | | | + + + + + + + + | Specimen | + + | | + + + + + + + | Performing | Address | City/State/Zipcode | Phone Number | | Organization | | | | + + + + + | [facility] | [address] | [place] [address] | [phone] | + + + + + POC [...] | | | POC | performed at [facility];[address] | | LABORATORY | | | | [address];[place] | | | | | | [address] | | | | + + + + + + + + | Specimen | + + | | + + + + + + + | Performing | Address | City/State/Zipcode | Phone Number | | Organization | | | | + + + + + | [facility] | [address] | [place] [address] | [phone] | + + + + + Vancomycin, Trough (04/17/2019 12:30 PM PST) + + + + + + | Component | Value | Ref Range | Performed | Pathologist | | | | | At | Signature | + + + + + + | Vancomycin, | 17.2Comment: 15 to 20 | 10 - 20 ug/mL | [facility] | | | Trough | ug/mL [...] | | | | | performed at [facility];[address] | | | | | | [address];[place] | | | | | | [address] | | | | + + + + + + + + | Specimen | + + | Blood | + + + + + + + | Performing | Address | City/State/Zipcode | Phone Number | | Organization | | | | + + + + + | [facility] | [address] | [place] [address] | [phone] | + + + + + POC [...] | | | POC | performed at [facility];[address] | | LABORATORY | | | | [address];[place] | | | | | | [address] | | | | + + + + + + + + | Specimen | + + | | + + + + + + + | Performing | Address | City/State/Zipcode | Phone Number | | Organization | | | | + + + + + | [facility] | [address] | [place] [address] | [phone] | + + + + + POC [...] | | | POC | performed at [facility];[address] | | LABORATORY | | | | [address];[place] | | | | | | [address] | | | | + + + + + + + + | Specimen | + + | | + + + + + + + | Performing | Address | City/State/Zipcode | Phone Number | | Organization | | | | + + + + + | [facility] | [address] | [place] [address] | [phone] | + + + + + POC [...] | | | POC | performed at [facility];[address] | | LABORATORY | | | | [address];[place], [place] | | | | | | [address] | | | | + + + + + + + + | Specimen | + + | | + + + + + + + | Performing | Address | City/State/Zipcode | Phone Number | | Organization | | | | + + + + + | [facility] | [address] | [place] [address] | [phone] | + + + + + Basic [...] | | | | | performed at [facility], [address] | | | | | | [facility], | | | | | | [place] [address] | | | | + + + + + + + + | Specimen | + + | Blood | + + + + + + + | Performing | Address | City/State/Zipcode | Phone Number | | Organization | | | | + + + + + | [facility] | [address] | [place] [address] | [phone] | + + + + + CBC [...] | | | | | performed at [facility], [address] | | | | | | [facility], | | | | | | [place] [address] | | | | | |MICRO | | | | | |NORMAL PLT MORPH | | | | | |Testing performed at [facility], [address] [facility] [facility], [place] [address] | | | | | | | | | | + + +---- + + + + + | Specimen | + + | Blood | + + + + + + + | Performing | Address | City/State/Zipcode | Phone Number | | Organization | | | | + + + + + | [facility] | [address] | [place] [address] | [phone] | + + + + + POC Glucose (04/16/2019 8:57 PM PST) + + + + + + | Component | Value | Ref Range | Performed | Pathologist | | | | | At | Signature | + + + + + + | Glucose, | 96Comment: Testing | 65 - 99 mg/dL | [facility] | | | POC | performed at [facility];[address] | | LABORATORY | | | | [address];[place] | | | | | | [address] | | | | + + + + + + + + | Specimen | + + | | + + + + + + + | Performing | Address | City/State/Zipcode | Phone Number | | Organization | | | | + + + + + | [facility] | [address] | [place] [address] | [phone] | + + + + + POC Glucose (04/16/2019 4:39 PM PST) + + + + + + | Component | Value | Ref Range | Performed | Pathologist | | | | | At | Signature | + + + + + + | Glucose, | 192 (H)Comment: Testing | 65 - 99 mg/dL | [facility] | | | POC | performed at [facility];[address] | | LABORATORY | | | | [address];[place], [place] | | | | | | [address] | | | | + + + + + + + + | Specimen | + + | | + + + + + + + | Performing | Address | City/State/Zipcode | Phone Number | | Organization | | | | + + + + + | [facility] | [address] | [place] [address] | [phone] | + + + + + POC [...] | | | POC | performed at [facility];[address] | | LABORATORY | | | | [address];[place], [place] | | | | | | [address] | | | | + + + + + + + + | Specimen | + + | | + + + + + + + | Performing | Address | City/State/Zipcode | Phone Number | | Organization | | | | + + + + + | [facility] | [address] | [place] [address] | [phone] | + + + + + POC Glucose (04/16/2019 7:36 AM PST) + + + + + + | Component | Value | Ref Range | Performed | Pathologist | | | | | At | Signature | + + + + + + | Glucose, | 100 (H)Comment: Testing | 65 - 99 mg/dL | [facility] | | | POC | performed at [facility];[address] | | LABORATORY | | | | [address];[place], [place] | | | | | | [address] | | | | + + + + + + + + | Specimen | + + | | + + + + + + + | Performing | Address | City/State/Zipcode | Phone Number | | Organization | | | | + + + + + | [facility] | [address] | [place] [address] | [phone] | + + + + + CBC [...] | | | | | performed at [facility], [address] | | | | | | [facility], | | | | | | [place] [address] | | | | | |MICRO | | | | | |NORMAL PLT MORPH | | | | | |Testing performed at [facility], [address] [place] [address] | | | | | | | | | | + + +---- + + + + + | Specimen | + + | Blood | + + + + + + + | Performing | Address | City/State/Zipcode | Phone Number | | Organization | | | | + + + + + | [facility] | [address] | [place] [address] | [phone] | + + + + + Basic [...] | >60Comment: GFR <60: | >60 | [facility] | | | GFR | CHRONIC [...] | | | | | performed at [facility], [address] | | | | | | [facility], | | | | | | [place] [address] | | | | + + + + + + + + | Specimen | + + | Blood | + + + + + + + | Performing | Address | City/State/Zipcode | Phone Number | | Organization | | | | + + + + + | [facility] | [address] | [place] [address] | [phone] | + + + + + POC [...] | | | POC | performed at [facility];[address] | | LABORATORY | | | | [address];[place] | | | | | | [address] | | | | + + + + + + + + | Specimen | + + | | + + + + + + + | Performing | Address | City/State/Zipcode | Phone Number | | Organization | | | | + + + + + | [facility] | [address] | [place] [address] | [phone] | + + + + + POC Glucose (04/15/2019 4:51 PM PST) + + + + + + | Component | Value | Ref Range | Performed | Pathologist | | | | | At | Signature | + + + + + + | Glucose, | 239 (H)Comment: Testing | 65 - 99 mg/dL | [facility] | | | POC | performed at [facility];[address] | | LABORATORY | | | | [address];[place] | | | | | | [address] | | | | + + + + + + + + | Specimen | + + | | + + + + + + + | Performing | Address | City/State/Zipcode | Phone Number | | Organization | | | | + + + + + | [facility] | [address] | [place] [address] | [phone] | + + + + + POC [...] | | | POC | performed at [facility];[address] | | LABORATORY | | | | [address];[place], [place] | | | | | | [address] | | | | + + + + + + + + | Specimen | + + | | + + + + + + + | Performing | Address | City/State/Zipcode | Phone Number | | Organization | | | | + + + + + | [facility] | [address] | [place] [address] | [phone] | + + + + + Type [...] + + + | BB BAND | [id number] | | [facility] | | | | | | LABORATORY | | + + + + + + | UNIT # | [id number] | | [facility] | | | | [...] + + + | UNIT # | [id number] | | [facility] | | | | [...] + + + | UNIT # | [id number] | | [facility] | | | | [...] | | | RESULT | performed at [facility];[address] | | LABORATORY | | | | [address];[place], [place] | | | | | | [address] | | | | + + + + + + + + | Specimen | + + | Blood | + + + + + + + | Performing | Address | City/State/Zipcode | Phone Number | | Organization | | | | + + + + + | [facility] | [address] | [place] [address] | [phone] | + + + + + Red [...] | [facility] | | | COMMENT | [facility];[address] | | LABORATORY | | | | [address];[place] [address] | | | | + + + + + + + + | Specimen | + + | | + + + + + + + | Performing | Address | City/State/Zipcode | Phone Number | | Organization | | | | + + + + + | [facility] | [address] | [place] [address] | [phone] | + + + + + POC Glucose (04/15/2019 9:11 AM PST) + + + + + + | Component | Value | Ref Range | Performed | Pathologist | | | | | At | Signature | + + + + + + | Glucose, | 165 (H)Comment: Testing | 65 - 99 mg/dL | [facility] | | | POC | performed at [facility];[address] | | LABORATORY | | | | [address];[place] | | | | | | [address] | | | | + + + + + + + + | Specimen | + + | | + + + + + + + | Performing | Address | City/State/Zipcode | Phone Number | | Organization | | | | + + + + + | [facility] | [address] | [place] [address] | [phone] | + + + + + Vancomycin, [...] | | | | | performed at [facility];[address] | | | | | | [address];[place], [place] | | | | | | [address] | | | | + + + + + + + + | Specimen | + + | Blood | + + + + + + + | Performing | Address | City/State/Zipcode | Phone Number | | Organization | | | | + + + + + | [facility] | [address] | [place] [address] | [phone] | + + + + + CBC [...] | | | Estimate | performed at [facility];[address] | | LABORATORY | | | | [address];[place] | | | | | | [address] | | | | + + + + + + + + | Specimen | + + | Blood | + + + + + + + | Performing | Address | City/State/Zipcode | Phone Number | | Organization | | | | + + + + + | [facility] | [address] | [place] [address] | [phone] | + + + + + Basic [...] | | | | | | [facility] traceable | | | | | | equation.Testing | | | | | | performed at [facility];[address] | | | | | | [facility];[place], [place] | | | | | | [address] | | | | + + + + + + + + | Specimen | + + | Blood | + + + + + + + | Performing | Address | City/State/Zipcode | Phone Number | | Organization | | | | + + + + + | [facility] | [address] | [place] [address] | [phone] | + + + + + POC [...] | | | POC | performed at [facility];[address] | | LABORATORY | | | | [address];[place], [place] | | | | | | [address] | | | | + + + + + + + + | Specimen | + + | | + + + + + + + | Performing | Address | City/State/Zipcode | Phone Number | | Organization | | | | + + + + + | [facility] | [address] | [place] [address] | [phone] | + + + + + POC Glucose (04/14/2019 4:58 PM PST) + + + + + + | Component | Value | Ref Range | Performed | Pathologist | | | | | At | Signature | + + + + + + | Glucose, | 175 (H)Comment: Testing | 65 - 99 mg/dL | [facility] | | | POC | performed at [facility];[address] | | LABORATORY | | | | [address];[place], [place] | | | | | | [address] | | | | + + + + + + + + | Specimen | + + | | + + + + + + + | Performing | Address | City/State/Zipcode | Phone Number | | Organization | | | | + + + + + | [facility] | [address] | [place] [address] | [phone] | + + + + + POC Glucose (04/14/2019 11:43 AM PST) + + + + + + | Component | Value | Ref Range | Performed | Pathologist | | | | | At | Signature | + + + + + + | Glucose, | 153 (H)Comment: Testing | 65 - 99 mg/dL | [facility] | | | POC | performed at [facility];[address] | | LABORATORY | | | | [address];[place] | | | | | | [address] | | | | + + + + + + + + | Specimen | + + | | + + + + + + + | Performing | Address | City/State/Zipcode | Phone Number | | Organization | | | | + + + + + | [facility] | [address] | [place] [address] | [phone] | + + + + + ECHO [...] Testing | 65 - 99 mg/dL | [facility] | | | POC | performed at [facility];[address] | | LABORATORY | | | | [address];[place] | | | | | | [address] | | | | + + + + + + + + | Specimen | + + | | + + + + + + + | Performing | Address | City/State/Zipcode | Phone Number | | Organization | | | | + + + + + | [facility] | [address] | [place] [address] | [phone] | + + + + + B [...] | | LABORATORY | | | | [facility];[address] [facility] | | | | | | Blvd;[place] [address] | | | | + + + + + + + + | Specimen | + + | | + + + + + + + | Performing | Address | City/State/Zipcode | Phone Number | | Organization | | | | + + + + + | [facility] | [address] | [place] [address] | [phone] | + + + + + CBC [...] | | | Estimate | performed at [facility];[address] | | LABORATORY | | | | [address];[place] | | | | | | [address] | | | | + + + + + + + + | Specimen | + + | | + + + + + + + | Performing | Address | City/State/Zipcode | Phone Number | | Organization | | | | + + + + + | [facility] | [address] | [place] [address] | [phone] | + + + + + Troponin I (04/14/2019 6:29 AM PST) + + + + + + | Component | Value | Ref Range | Performed | Pathologist | | | | | At | Signature | + + + + + + | Troponin I | 0.014Comment: 0.04 | 0.00 - 0.04 | [facility] | | | | ng/mL or [...] at | | | | | | [facility];[address] [place] [address] | | | | | | Bl;[place] [address] | | | | + + + + + + + + | Specimen | + + | Blood | + + + + + + + | Performing | Address | City/State/Zipcode | Phone Number | | Organization | | | | + + + + + | [facility] | [address] | [place] [address] | [phone] | + + + + + Basic [...] | | | | | performed at [facility];[address] | | | | | | [address];[place], [place] | | | | | | [address] | | | | + + + + + + + + | Specimen | + + | Blood | + + + + + + + | Performing | Address | City/State/Zipcode | Phone Number | | Organization | | | | + + + + + | [facility] | [address] | [place] [address] | [phone] | + + + + + Vancomycin Level (04/14/2019 4:53 AM PST) + + + + + + | Component | Value | Ref Range | Performed | Pathologist | | | | | At | Signature | + + + + + + | Vancomycin | 20.6Comment: Testing | ug/mL | [facility] | | | Random, | performed at [facility];[address] | | LABORATORY | | | Serum | [address];[place] | | | | | | [address] | | | | + + + + + + + + | Specimen | + + | Blood | + + + + + + + | Performing | Address | City/State/Zipcode | Phone Number | | Organization | | | | + + + + + | [facility] | [address] | [place] [address] | [phone] | + + + + + POC [...] | | | POC | performed at [facility];[address] | | LABORATORY | | | | [address];[place], [place] | | | | | | [address] | | | | + + + + + + + + | Specimen | + + | | + + + + + + + | Performing | Address | City/State/Zipcode | Phone Number | | Organization | | | | + + + + + | [facility] | [address] | [place] [address] | [phone] | + + + + + Troponin I (04/14/2019 1:19 AM PST) + + + + + + | Component | Value | Ref Range | Performed | Pathologist | | | | | At | Signature | + + + + + + | Troponin I | 0.015Comment: 0.04 | 0.00 - 0.04 | [facility] | | | | ng/mL or [...] at | | | | | | [facility];[address] [facility] | | | | | | [facility];[place] [address] | | | | + + + + + + + + | Specimen | + + | Blood | + + + + + + + | Performing | Address | City/State/Zipcode | Phone Number | | Organization | | | | + + + + + | [facility] | [address] | [place] [address] | [phone] | + + + + + ECG [...] | | | POC | performed at [facility];[address] | | LABORATORY | | | | [address];[place], [place] | | | | | | [address] | | | | + + + + + + + + | Specimen | + + | | + + + + + + + | Performing | Address | City/State/Zipcode | Phone Number | | Organization | | | | + + + + + | [facility] | [address] | [place] [address] | [phone] | + + + + + POC Glucose (04/13/2019 4:19 PM PST) + + + + + + | Component | Value | Ref Range | Performed | Pathologist | | | | | At | Signature | + + + + + + | Glucose, | 109 (H)Comment: Testing | 65 - 99 mg/dL | [facility] | | | POC | performed at [facility];[address] | | LABORATORY | | | | [address];[place] | | | | | | [address] | | | | + + + + + + + + | Specimen | + + | | + + + + + + + | Performing | Address | City/State/Zipcode | Phone Number | | Organization | | | | + + + + + | [facility] | [address] | [place] [address] | [phone] | + + + + + XR [...] catheterization with right leg runoff4. Right SFA ZIGZAG APPLIQUER | | | crossing and atherectomy using Bard 14 S crossing catheter SURGEON: | | | Simba Cheng MD EVENT PRODUCER: None ANESTHESIA: Moderate sedation and local | [...] | | identified and brought to the Term[employer] Control Servicer. The patient was placed supine | | [...] sized to a 4 | | | Pakistani sheath. A Omni flush catheter was then [...] inserted over the catheter and the 4 Pakistani sheath was | | | removed. A 7 Pakistani destination sheath was then inserted over the [...] | | | POC | performed at [facility];[address] | | LABORATORY | | | | [address];[place] | | | | | | [address] | | | | + + + + + + + + | Specimen | + + | | + + + + + + + | Performing | Address | City/State/Zipcode | Phone Number | | Organization | | | | + + + + + | [facility] | [address] | [place] [address] | [phone] | + + + + + POC Glucose (04/13/2019 7:59 AM PST) + + + + + + | Component | Value | Ref Range | Performed | Pathologist | | | | | At | Signature | + + + + + + | Glucose, | 124 (H)Comment: Testing | 65 - 99 mg/dL | [facility] | | | POC | performed at [facility];[address] | | LABORATORY | | | | [address];[place] | | | | | | [address] | | | | + + + + + + + + | Specimen | + + | | + + + + + + + | Performing | Address | City/State/Zipcode | Phone Number | | Organization | | | | + + + + + | [facility] | [address] | [place] [address] | [phone] | + + + + + Basic [...] 8.2 (L) | 8.5 - 10.5 | [facility] | | | | | mg/dL | LABORATORY | | + + + + + + | Estimated | >60Comment: GFR <60: | >60 | [facility] | | | GFR | CHRONIC [...] W | | | | | | [facility], | | | | | | [place] [address] | | | | + + + + + + + + | Specimen | + + | Blood | + + + + + + + | Performing | Address | City/State/Zipcode | Phone Number | | Organization | | | | + + + + + | [facility] | [address] | [place] [address] | [phone] | + + + + + CBC [...] | | | | | performed at [facility], [address] | | | | | | [facility], | | | | | | [place] [address] | | | | | |MICRO | | | | | |NORMAL PLT MORPH | | | | | |Testing performed at [facility], [address] [facility], [place] [address] | | | | | | | | | | + + +---- + + + + + | Specimen | + + | Blood | + + + + + + + | Performing | Address | City/State/Zipcode | Phone Number | | Organization | | | | + + + + + | [facility] | [address] | [place] [address] | [phone] | + + + + + POC [...] | | | POC | performed at [facility];[address] | | LABORATORY | | | | [address];[place], [place] | | | | | | [address] | | | | + + + + + + + + | Specimen | + + | | + + + + + + + | Performing | Address | City/State/Zipcode | Phone Number | | Organization | | | | + + + + + | [facility] | [address] | [place] [address] | [phone] | + + + + + POC Glucose (04/12/2019 9:14 PM PST) + + + + + + | Component | Value | Ref Range | Performed | Pathologist | | | | | At | Signature | + + + + + + | Glucose, | 183 (H)Comment: Testing | 65 - 99 mg/dL | [facility] | | | POC | performed at [facility];[address] | | LABORATORY | | | | [address];[place] | | | | | | [address] | | | | + + + + + + + + | Specimen | + + | | + + + + + + + | Performing | Address | City/State/Zipcode | Phone Number | | Organization | | | | + + + + + | [facility] | [address] | [place] [address] | [phone] | + + + + + POC Glucose (04/12/2019 4:28 PM PST) + + + + + + | Component | Value | Ref Range | Performed | Pathologist | | | | | At | Signature | + + + + + + | Glucose, | 211 (H)Comment: Testing | 65 - 99 mg/dL | [facility] | | | POC | performed at [facility];[address] | | LABORATORY | | | | [address];[place] | | | | | | [address] | | | | + + + + + + + + | Specimen | + + | | + + + + + + + | Performing | Address | City/State/Zipcode | Phone Number | | Organization | | | | + + + + + | [facility] | [address] | [place] [address] | [phone] | + + + + + POC [...] | | | POC | performed at [facility];[address] | | LABORATORY | | | | [address];[place] | | | | | | [address] | | | | + + + + + + + + | Specimen | + + | | + + + + + + + | Performing | Address | City/State/Zipcode | Phone Number | | Organization | | | | + + + + + | [facility] | [address] | [place] [address] | [phone] | + + + + + POC [...] | | | POC | performed at [facility];[address] | | LABORATORY | | | | [address];[place] | | | | | | [address] | | | | + + + + + + + + | Specimen | + + | | + + + + + + + | Performing | Address | City/State/Zipcode | Phone Number | | Organization | | | | + + + + + | [facility] | [address] [facility] | [place] [address] | [phone] | + + + + + Basic [...] | | | | | performed at [facility], [address] | | | | | | [facility], | | | | | | [place] [address] | | | | + + + + + + + + | Specimen | + + | Blood | + + + + + + + | Performing | Address | City/State/Zipcode | Phone Number | | Organization | | | | + + + + + | [facility] | [address] | [place] [address] | [phone] | + + + + + CBC [...] | | | | | performed at [facility], [address] | | | | | | [facility], | | | | | | [place] [address] | | | | | |MICRO | | | | | |NORMAL PLT MORPH | | | | | |Testing performed at [facility], [address] [facility], [place] [address] | | | | | | | | | | + + +---- + + + + + | Specimen | + + | Blood | + + + + + + + | Performing | Address | City/State/Zipcode | Phone Number | | Organization | | | | + + + + + | [facility] | [address] | [place] [address] | [phone] | + + + + + POC Glucose (04/11/2019 9:20 PM PST) + + + + + + | Component | Value | Ref Range | Performed | Pathologist | | | | | At | Signature | + + + + + + | Glucose, | 199 (H)Comment: Testing | 65 - 99 mg/dL | [facility] | | | POC | performed at [facility];[address] | | LABORATORY | | | | [address];[place] | | | | | | [address] | | | | + + + + + + + + | Specimen | + + | | + + + + + + + | Performing | Address | City/State/Zipcode | Phone Number | | Organization | | | | + + + + + | [facility] | [address] | [place] [address] | [phone] | + + + + + POC [...] | | | POC | performed at [facility];[address] | | LABORATORY | | | | [address];[place], [place] | | | | | | [address] | | | | + + + + + + + + | Specimen | + + | | + + + + + + + | Performing | Address | City/State/Zipcode | Phone Number | | Organization | | | | + + + + + | [facility] | [address] | [place] [address] | [phone] | + + + + + POC [...] | | | POC | performed at [facility];[address] | | LABORATORY | | | | [address];[place], [place] | | | | | | [address] | | | | + + + + + + + + | Specimen | + + | | + + + + + + + | Performing | Address | City/State/Zipcode | Phone Number | | Organization | | | | + + + + + | [facility] | [address] | [place] [address] | [phone] | + + + + + IR [...] x 150 mm | | | angioplasty [id number]. Left SFA stenting using 7 x 120 mm | | | self-expanding stent SURGEON: Simba Cheng MD EVENT PRODUCER: None ANESTHESIA: | | | Moderate sedation [...] | | identified and brought to the Termite Control Servicer. The patient was placed supine | | [...] sized to a 4 | | | Pakistani sheath. A Omni flush catheter was then [...] inserted over the catheter and the 4 Pakistani sheath was | | | removed. A 7 Pakistani destination sheath was then inserted over the [...] using a | | | Glidewire and Glasgow catheter. A 0.009 wire was then passed [...] crossed using a | | |Glidewire and Glasgow catheter. A 0.009 wire was then passed [...] Testing | 65 - 99 mg/dL | [facility] | | | POC | performed at [facility] [place];[address] | [address]ORAT[address] | | | | [address];[place] | | | | | | [address] | | | | + + + + + + + + | Specimen | + + | | + + + + + + + | Performing | Address | City/State/Zipcode | Phone Number | | Organization | | | | + + + + + | [facility] | [address] | [place] [address] | [phone] | + + + + + B Type Natriuretic Peptide (04/11/2019 5:48 AM PST) + + + + + + | Component | Value | Ref Range | Performed | Pathologist | | | | | At | Signature | + + + + + + | BNP | 220.45 (H)Comment: | 0 - 100 pg/mL | [facility] | | | | Testing performed at | | LABORATORY | | | | [facility];[address];[place] [address] | | | | + + + + + + + + | Specimen | + + | Blood | + + + + + + + | Performing | Address | City/State/Zipcode | Phone Number | | Organization | | | | + + + + + | [facility] | [address] | [place] [address] | [phone] | + + + + + Basic [...] | >60Comment: GFR <60: | >60 | [facility] | | | GFR | CHRONIC [...] | | | | | | MDRD IDDE traceable | | | | | | equation.Testing | | | | | | performed at [facility], [address] | | | | | [facility], | | | | | | [place] [address] | | | | + + + + + + + + | Specimen | + + | Blood | + + + + + + + | Performing | Address | City/State/Zipcode | Phone Number | | Organization | | | | + + + + + | [facility] | [address] | [place] [address] | [phone] | + + + + + CBC [...] | | | | | | at [facility], [address] | | | | | [address], | | | | | | [place] [address] | | | | | |Testing performed at [facility], [address] [place] [address] | | | | | | | | | | + + +---- + + + + + | Specimen | + + | Blood | + + + + + + + | Performing | Address | City/State/Zipcode | Phone Number | | Organization | | | | + + + + + | [facility] | [address] | [place] [address] | [phone] | + + + + + POC Glucose (04/10/2019 9:22 PM PST) + + + + + + | Component | Value | Ref Range | Performed | Pathologist | | | | | At | Signature | + + + + + + | Glucose, | 127 (H)Comment: Testing | 65 - 99 mg/dL | [facility] | | | POC | performed at [facility];[address] | | LABORATORY | | | | [address]amillo;[place] | | | | | | [address] | | | | + + + + + + + + | Specimen | + + | | + + + + + + + | Performing | Address | City/State/Zipcode | Phone Number | | Organization | | | | + + + + + | [facility] | [address] | [place] [address] | [phone] | + + + + + POC [...] | | | POC | performed at [facility];[address] | | LABORATORY | | | | Kiara Jaramillo;[place] | | | | | | [address] | | | | + + + + + + + + | Specimen | + + | | + + + + + + + | Performing | Address | City/State/Zipcode | Phone Number | | Organization | | | | + + + + + | [facility] | [address] | [place] [address] | [phone] | + + + + + [place] [...] | | | POC | performed at [facility];[address] | | LABORATORY | | | | [address];[place] | | | | | | [address] | | | | + + + + + + + + | Specimen | + + | | + + + + + + + | Performing | Address | City/State/Zipcode | Phone Number | | Organization | | | | + + + + + | [facility] | [address] | [place] [address] | [phone] | + + + + + CBC [...] [facility] | | | | performed at [facility], [address] | | LABORATORY | | | | [address]amillo, | | | | | | [place] [address] | | | | + + + + + + + + | Specimen | + + | Blood | + + + + + + + | Performing | Address | City/State/Zipcode | Phone Number | | Organization | | | | + + + + + | [facility] | [address] | [place] [address] | [phone] | + + + + + POC [...] | | | POC | performed at [facility];[address] | | LABORATORY | | | | [address];[place] | | | | | | [address] | | | | + + + + + + + + | Specimen | + + | | + + + + + + + | Performing | Address | City/State/Zipcode | Phone Number | | Organization | | | | + + + + + | [facility] | [address] | [place] [address] | [phone] | + + + + + POC Glucose (04/09/2019 5:06 PM PST) + + + + + + | Component | Value | Ref Range | Performed | Pathologist | | | | | At | Signature | + + + + + + | Glucose, | 169 (H)Comment: Testing | 65 - 99 mg/dL | [facility] | | | POC | performed at [facility];[address] | | LABORATORY | | | | [address] Jaramillo;[place] | | | | | | [address] | | | | + + + + + + + + | Specimen | + + | | + + + + + + + | Performing | Address | City/State/Zipcode | Phone Number | | Organization | | | | + + + + + | [facility] | [address] | [place] [address] | [phone] | + + + + + POC [...] | | | POC | performed at [facility];[address] | | LABORATORY | | | | [address];[place] | | | | | | [address] | | | | + + + + + + + + | Specimen | + + | | + + + + + + + | Performing | Address | City/State/Zipcode | Phone Number | | Organization | | | | + + + + + | [facility] | [address] | [place] [address] | [phone] | + + + + + XR [...] | | | Urine | performed at [facility], [address] | | LABORATORY | | | | [address]amillo, | | | | | | [place] [address] | | | | + + + + + + + + | Specimen | + + | | + + + + + + + | Performing | Address | City/State/Zipcode | Phone Number | | Organization | | | | + + + + + | [facility] | [address] | [place] [address] | [phone] | + + + + + Urinalysis, [...] - 1.030 | [facility] | | | [place], | | | LABORATORY | | | [...] | + + + + + | [facility] | [address] | [place] [address] | [phone] | + + + + + Sedimentation Rate (04/09/2019 6:16 AM PST) + + + + + + | Component | Value | Ref Range | Performed | Pathologist | | | | | At | Signature | + + + + + + | ESR | 91 (H)Comment: Testing | 0 - 20 mm/Hr | [facility] | | | | performed at [facility], [address] | | LABORATORY | | | | [address], | | | | | | [place] [address] | | | | + + + + + + + + | Specimen | + + | Blood | + + + + + + + | Performing | Address | City/State/Zipcode | Phone Number | | Organization | | | | + + + + + | [facility] | [address] | [place] [address] | [phone] | + + + + + CBC [...] [facility] | | | | performed at [facility], [address] | | LABORATORY | | | | [facility], | | | | | | [place] [address] | | | | + + + + + + + + | Specimen | + + | Blood | + + + + + + + | Performing | Address | City/State/Zipcode | Phone Number | | Organization | | | | + + + + + | [facility] | [address] | [place] [address] | [phone] | + + + + + Comprehensive [...] | | | | | | MDRD IDDE traceable | | | | | | equation.Testing | | | | | | performed at [facility], [address] | | | | | | [facility], | | | | | | [place] [address] | | | | + + + + + + + + | Specimen | + + | Blood | + + + + + + + | Performing | Address | City/State/Zipcode | Phone Number | | Organization | | | | + + + + + | [facility] | [address] | [place] [address] | [phone] | + + + + + POC Glucose (04/08/2019 10:09 PM PST) + + + + + + | Component | Value | Ref Range | Performed | Pathologist | | | | | At | Signature | + + + + + + | Glucose, | 168 (H)Comment: Testing | 65 - 99 mg/dL | [facility] | | | POC | performed at [facility];[address] | | LABORATORY | | | | [address];[place] | | | | | | [address] | | | | + + + + + + + + | Specimen | + + | | + + + + + + + | Performing | Address | City/State/Zipcode | Phone Number | | Organization | | | | + + + + + | [facility] | [address] | [place] [address] | [phone] | + + + + + Fecal Hemoglobin (04/08/2019 7:27 PM PST) + + + + + + | Component | Value | Ref Range | Performed | Pathologist | | | | | At | Signature | + + + + + + | FECAL | NEGATIVEComment: Testing | NEG | [facility] | | | OCCULT BLD | performed at [facility];[address] | | LABORATORY | | | | [address];[place], [place] | | | | | | [address] | | | | + + + + + + + + | Specimen | + + | Stool - Stool | | specimen (specimen) | + + + + + + + | Performing | Address | City/State/Zipcode | Phone Number | | Organization | | | | + + + + + | [facility] | [address] | [place] [address] | [phone] | + + + + + POC [...] | | | POC | performed at [facility];[address] | | LABORATORY | | | | [address]amillo;[place] | | | | | | [address] | | | | + + + + + + + + | Specimen | + + | | + + + + + + + | Performing | Address | City/State/Zipcode | Phone Number | | Organization | | | | + + + + + | [facility] | [address] | [place] [address] | [phone] | + + + + + XR [...] | | | POC | performed at [facility];[address] | | LABORATORY | | | | [address];[place] | | | | | | [address] | | | | + + + + + + + + | Specimen | + + | | + + + + + + + | Performing | Address | City/State/Zipcode | Phone Number | | Organization | | | | + + + + + | [facility] | [address] | [place] [address] | [phone] | + + + + + XR [...] Testing | 65 - 99 mg/dL | [facility] | | | POC | performed at [facility];[address] | | LABORATORY | | | | [address]am[address];[place] | | | | | | [address] | | | | + + + + + + + + | Specimen | + + | | + + + + + + + | Performing | Address | City/State/Zipcode | Phone Number | | Organization | | | | + + + + + | [facility] | [address] | [place] [address] | [phone] | + + + + + B [...] [address] | | | | | | [address];[place] [address] | | | | + + + + + + + + | Specimen | + + | Blood | + + + + + + + | Performing | Address | City/State/Zipcode | Phone Number | | Organization | | | | + + + + + | [facility] | [address] | [place] [address] | [phone] | + + + + + CBC [...] | | | | | [place] [address] | | | | + + + + + + + + | Specimen | + + | Blood | + + + + + + + | Performing | Address | City/State/Zipcode | Phone Number | | Organization | | | | + + + + + | [facility] | [address] | [place] [address] | [phone] | + + + + + Comprehensive [...] | | | | | performed at [facility], [address] | | | | | | [facility], | | | | | | [place] [address] | | | | + + + + + + + + | Specimen | + + | Blood | + + + + + + + | Performing | Address | City/State/Zipcode | Phone Number | | Organization | | | | + + + + + | [facility] | [address] | [place] [address] | [phone] | + + + + + POC [...] | | | POC | performed at [facility];[address] | | LABORATORY | | | | [address];[place] | | | | | | [address] | | | | + + + + + + + + | Specimen | + + | | + + + + + + + | Performing | Address | City/State/Zipcode | Phone Number | | Organization | | | | + + + + + | [facility] | [address] [facility] | [place] [address] | [phone] | + + + + + POC [...] | | | POC | performed at [facility];[address] | | LABORATORY | | | | [address];[place] | | | | | | [address] | | | | + + + + + + + + | Specimen | + + | | + + + + + + + | Performing | Address | City/State/Zipcode | Phone Number | | Organization | | | | + + + + + | [facility] | [address] | [place] [address] | [phone] | + + + + + POC Glucose (04/07/2019 12:40 PM PST) + + + + + + | Component | Value | Ref Range | Performed | Pathologist | | | | | At | Signature | + + + + + + | Glucose, | 252 (H)Comment: Testing | 65 - 99 mg/dL | [facility] | | | POC | performed at [facility];[address] | | LABORATORY | | | | [address];[place] | | | | | | [address] | | | | + + + + + + + + | Specimen | + + | | + + + + + + + | Performing | Address | City/State/Zipcode | Phone Number | | Organization | | | | + + + + + | [facility] | [address] | [place] [address] | [phone] | + + + + + XR [...] | | | POC | performed at [facility];[address] | | LABORATORY | | | | [address];[place] | | | | | | [address] | | | | + + + + + + + + | Specimen | + + | | + + + + + + + | Performing | Address | City/State/Zipcode | Phone Number | | Organization | | | | + + + + + | [facility] | [address] | [place] [address] | [phone] | + + + + + Magnesium (04/07/2019 5:02 AM PST) + + + + + + | Component | Value | Ref Range | Performed | Pathologist | | | | | At | Signature | + + + + + + | Magnesium | 2.1Comment: Testing | 1.7 - 2.4 mg/dL | [facility] | | | | performed at [facility], [address] | | LABORATORY | | | | [address], | | | | | | [place] [address] | | | | + + + + + + + + | Specimen | + + | Blood | + + + + + + + | Performing | Address | City/State/Zipcode | Phone Number | | Organization | | | | + + + + + | [facility] | [address] | [place] [address] | [phone] | + + + + + CBC [...] [facility] | | | | performed at [facility];[address] | | LABORATORY | | | | [address];[place], [place] | | | | | | [address] | | | | + + + + + + + + | Specimen | + + | Blood | + + + + + + + | Performing | Address | City/State/Zipcode | Phone Number | | Organization | | | | + + + + + | [facility] | [address] | [place] [address] | [phone] | + + + + + Comprehensive [...] | >60Comment: GFR <60: | >60 | [facility] | | | GFR | CHRONIC [...] | | | | | | MDRD IDDE traceable | | | | | | equation.Testing | | | | | | performed at [facility], [address] | | | | | | [facility], | | | | | | [place] [address] | | | | + + + + + + + + | Specimen | + + | Blood | + + + + + + + | Performing | Address | City/State/Zipcode | Phone Number | | Organization | | | | + + + + + | [facility] | [address] | [place] [address] | [phone] | + + + + + Iron, Total (04/07/2019 5:02 AM PST) + + + + + + | Component | Value | Ref Range | Performed | Pathologist | | | | | At | Signature | + + + + + + | Iron | 23 (L)Comment: Testing | 45 - 190 ug/dL | [facility] | | | | performed at [facility], [address] | | LABORATORY | | | | [address], | | | | | | [place] [address] | | | | + + + + + + + + | Specimen | + + | Blood | + + + + + + + | Performing | Address | City/State/Zipcode | Phone Number | | Organization | | | | + + + + + | [facility] | [address] | [place] [address] | [phone] | + + + + + POC [...] | | | POC | performed at [facility];[address] | | LABORATORY | | | | [address];[place] | | | | | | [address] | | | | + + + + + + + + | Specimen | + + | | + + + + + + + | Performing | Address | City/State/Zipcode | Phone Number | | Organization | | | | + + + + + | [facility] | [address] | [place] [address] | [phone] | + + + + + POC [...] | | | POC | performed at [facility];[address] | | LABORATORY | | | | [address];[place], [place] | | | | | | [address] | | | | + + + + + + + + | Specimen | + + | | + + + + + + + | Performing | Address | City/State/Zipcode | Phone Number | | Organization | | | | + + + + + | [facility] | [address] | [place] [address] | [phone] | + + + + + Culture, [...] | [facility] | | | Requests | [facility];[address] [facility] | | LABORATORY | | | | [address];[place] [address] | | | | + + + + + + | RESULT | 1+NORMAL SKIN CELSA | | [facility] | | | | ISOLATED | | LABORATORY | | | | | | | | + + + + + + | RESULT | NO FURTHER WORKUP | | [facility] | | | | | | LABORATORY | | + + + + + + | RESULT | Testing performed at | | [facility] | | | | TCL, [address] [facility] | | LABORATORY | | | | [place], [place] | | | | | | [address]Gdjkamr: Testing | | | | | | performed at [facility], [address] | | | | | [address] [place], [place] | | | | | | [address] | | | | + + + + + + + + | Specimen | + + | Body Fluid - Entire | | heel (body | | structure) | + + + + + + + | Performing | Address | City/State/Zipcode | Phone Number | | Organization | | | | + + + + + | [facility] | [address] | [place] [address] | [phone] | + + + + + Culture, [...] | [facility] | | | Requests | [facility];[address] [place] [address] | | LABORATORY | | | | Blvd;[place] [address] | | | | + + + [...] Comment: Testing | | | performed at [facility], | | | [address], | | | [place] [address] | +---+ + + + + + + | Performing | Address | City/State/Zipcode | Phone Number | | Organization | | | | + + + + + | [facility] | [address] | [place] [address] | [phone] | + + + + + Ferritin (04/06/2019 2:30 PM PST) + + + + + + | Component | Value | Ref Range | Performed | Pathologist | | | | | At | Signature | + + + + + + | Ferritin | 62Comment: Testing | 11 - 450 ng/mL | [facility] | | | | performed at [facility], [address] | | LABORATORY | | | | [address], | | | | | | [place] [address] | | | | + + + + + + + + | Specimen | + + | Blood | + + + + + + + | Performing | Address | City/State/Zipcode | Phone Number | | Organization | | | | + + + + + | [facility] | [address] | [place] [address] | [phone] | + + + + + Vitamin [...] [facility] | | | | performed at [facility], [address] | | LABORATORY | | | | [address], | | | | | | [place] [address] | | | | + + + + + + + + | Specimen | + + | Blood | + + + + + + + | Performing | Address | City/State/Zipcode | Phone Number | | Organization | | | | + + + + + | [facility] | [address] | [place] [address] | [phone] | + + + + + Troponin [...] at | | | | | | [facility];[address] [facility] | | | | | | [facility];[place] [address] | | | | + + + + + + + + | Specimen | + + | Blood | + + + + + + + | Performing | Address | City/State/Zipcode | Phone Number | | Organization | | | | + + + + + | [facility] | [address] | [place] [address] | [phone] | + + + + + POC Glucose (04/06/2019 11:28 AM PST) + + + + + + | Component | Value | Ref Range | Performed | Pathologist | | | | | At | Signature | + + + + + + | Glucose, | 175 (H)Comment: Testing | 65 - 99 mg/dL | [facility] | | | POC | performed at [facility];[address] | | LABORATORY | | | | [address];[place] | | | | | | [address] | | | | + + + + + + + + | Specimen | + + | | + + + + + + + | Performing | Address | City/State/Zipcode | Phone Number | | Organization | | | | + + + + + | [facility] | [address] | [place] [address] | [phone] | + + + + + VAS [...] | | | POC | performed at [facility];[address] | | LABORATORY | | | | [address];[place] | | | | | | [address] | | | | + + + + + + + + | Specimen | + + | | + + + + + + + | Performing | Address | City/State/Zipcode | Phone Number | | Organization | | | | + + + + + | [facility] | [address] | [place] [address] | [phone] | + + + + + Troponin I (04/06/2019 8:31 AM PST) + + + + + + | Component | Value | Ref Range | Performed | Pathologist | | | | | At | Signature | + + + + + + | Troponin I | 0.19 (H)Comment: 0.04 | 0.00 - 0.04 | [facility] | | | | ng/mL or [...] at | | | | | | [facility];[address] [place] [address] | | | | | | [facility];[place] [address] | | | | + + + + + + + + | Specimen | + + | Blood | + + + + + + + | Performing | Address | City/State/Zipcode | Phone Number | | Organization | | | | + + + + + | [facility] | [address] | [place] [address] | [phone] | + + + + + XR [...] Special | Testing performed at | | [facility] | | | Requests | [facility];[address] | | LABORATORY | | | | [address];[place] [address] | | | | + + + + + + | RESULT | NO GROWTH 6 DAYS | | [facility] | | | | | | LABORATORY | | + + + + + + | RESULT | Testing performed at | | [facility] | | | | TCL, [address] [facility] | | LABORATORY | | | | [place], [place] | | | | | | [id number]: Testing | | | | | | performed at [facility], [address] | | | | | | [address], [place], [place] | | | | | | [address] | | | | + + + [...] [facility] | [address] | [place] [address] | [phone] | + + + + + Culture, [...] Special | Testing performed at | | [facility] | | | Requests | [facility];[address] | | LABORATORY | | | | [place] [address] | | | | + + + + + + | RESULT | NO GROWTH 6 DAYS | | [facility] | | | | | | LABORATORY | | + + + + + + | RESULT | Testing performed at | | [facility] | | | | TCL, [address] [facility] | | LABORATORY | | | | [place], [place] | | | | | | [address]Ozjoota: Testing | | | | | | performed at [facility], [facility] | | | | | | [address], [place] | | | | | | [address] | | | | + + + + + + + + | Specimen | + + | Blood - Peripheral | | blood specimen | | (specimen) | + + + + + + + | Performing | Address | City/State/Zipcode | Phone Number | | Organization | | | | + + + + + | [facility] | [address] | [place] [address] | [phone] | + + + + + B [...] | | LABORATORY | | | | [facility];[address] | | | | | | [address];[place] [address] | | | | + + + + + + + + | Specimen | + + | | + + + + + + + | Performing | Address | City/State/Zipcode | Phone Number | | Organization | | | | + + + + + | [facility] | [address] | [place] [address] | [phone] | + + + + + Lipid [...] | 13Comment: Testing | <100 mg/dL | [facility] | | | Calculated | performed at [facility], [address] | | LABORATORY | | | | [address], | | | | | | [place] [address] | | | | + + + + + + + + | Specimen | + + | Blood | + + + + + + + | Performing | Address | City/State/Zipcode | Phone Number | | Organization | | | | + + + + + | [facility] | [address] | [place] [address] | [phone] | + + + + + Hemoglobin A1C (04/06/2019 2:48 AM PST) + + + + + + | Component | Value | Ref Range | Performed | Pathologist | | | | | At | Signature | + + + + + + | Hemoglobin | 7.8 (H)Comment: HbA1c | 4.0 - 6.0 % | [facility] | | | A1c | method [...] | 177 (H)Comment: | <154 mg/dL | [facility] | | | Average | Estimated Average | | LABORATORY | | | Glucose | Glucose calculated from | | | | | | hemoglobin A1c by use of | | | | | | the ADArecommended | | | | | | formula.Testing | | | | | | performed at [facility], [address] | | | | | [address], | | | | | | [place] [address] | | | | + + + + + + + + | Specimen | + + | Blood | + + + + + + + | Performing | Address | City/State/Zipcode | Phone Number | | Organization | | | | + + + + + | [facility] | [address] | [place] [address] | [phone] | + + + + + Magnesium (04/06/2019 2:48 AM PST) + + + + + + | Component | Value | Ref Range | Performed | Pathologist | | | | | At | Signature | + + + + + + | Magnesium | 1.4 (L)Comment: Testing | 1.7 - 2.4 mg/dL | [facility] | | | | performed at [facility], [address] | LABORATORY | | | | [address], | | | | | | [place] [address] | | | | + + + + + + + + | Specimen | + + | Blood | + + + + + + + | Performing | Address | City/State/Zipcode | Phone Number | | Organization | | | | + + + + + | [facility] | [address] | [place] [address] | [phone] | + + + + + Comprehensive [...] | | | | | performed at [facility], [address] | | | | | | [facility], | | | | | | [place] [address] | | | | + + + + + + + + | Specimen | + + | Blood | + + + + + + + | Performing | Address | City/State/Zipcode | Phone Number | | Organization | | | | + + + + + | [facility] | [address] | [place] [address] | [phone] | + + + + + CBC [...] | | | | | | at [facility];[address];[place] [address] | | | | | |[address] | | | | | |Testing performed at [facility];[address];[place] [address] | | | | | | | | | | + + + + + + + + | Specimen | + + | Blood | + + + + + + + | Performing | Address | City/State/Zipcode | Phone Number | | Organization | | | | + + + + + | [facility] | [address] | [place] [address] | [phone] | + + + + + Ev [...] | | | | | performed at [facility] | | | | | | [address];[place], [place] | | | | | | [address] | | | | + + + + + + + + | Specimen | + + | Blood | + + + + + + + | Performing | Address | City/State/Zipcode | Phone Number | | Organization | | | | + + + + + | [facility] | [address] | [place] [address] | [phone] | + + + + + PTT (04/06/2019 2:48 AM PST) + + + + + + | Component | Value | Ref Range | Performed | Pathologist | | | | | At | Signature | + + + + + + | PTT | 34 (H)Comment: Testing | 23 - 32 seconds | IDA | | | | performed at [facility];[address] | | LABORATORY | | | | [address];[place] | | | | | | [address] | | | | + + + + + + + + | Specimen | + + | Blood | + + + + + + + | Performing | Address | City/State/Zipcode | Phone Number | | Organization | | | | + + + + + | [facility] | [address] | [place] [address] | [phone] | + + + + + Troponin [...] at | | | | | | [facility];[address] [place] [address] | | | | | | [facility];[place] [address] | | | | + + + + + + + + | Specimen | + + | Blood | + + + + + + + | Performing | Address | City/State/Zipcode | Phone Number | | Organization | | | | + + + + + | [facility] | [address] | [place] [address] | [phone] | + + + + + documented [...] | | | | | dose on [facility] 04/12/19 at 2100 | | | | [...]
--- OUTSIDE RECORDS SUMMARY | ~2019-08-23 | XMS | Encounter Summary ---
Demographics + + + | Address | [address] | | | [place] [address] | + + + | Home Phone | | + + + | Preferred Language | Unknown | + + + | Marital Status | | + + + | Muslim Affiliation | 1076 | + + + | Race | Unknown | + + + | Ethnic Group | Unknown | + + + Author + + + | Author | [facility] | | | and [place] | + + + | Organization | [facility] | | | and [place] | + + + | Address | Unknown | + + + | Phone | Unavailable | + + + Support + + + + + | Name | Relationship | Address | Phone | + + + + + | Jessica Shepard | ECON | [address] | | | | | [place] | | | | | [address] | | + + + + + | Bel Solis | ECON | Unknown | | + + + + + Care Team Providers + +------+ + | Care Digital Media Analyst Name | Role | Phone | + +------+ + | Dian Lr NP | PCP | | + +------+ + Encounter Details +--------+ + + + + | Date | Type | Department | Care Team | Description | +--------+ + + + + | 07/21/ | Orders Only | [facility] | Conversion | | | 2019 | | INFECTIOUS DISEASE | Transaction, | | | | | [address] | Provider Unknown | | | | | [place], [place] | | | | | | [address] | (Fax) | | | | | [phone] | | | +--------+ + + + [...]
--- OUTSIDE RECORDS SUMMARY | ~2019-08-23 | XMS | Encounter Summary ---
Demographics + + + | Address | [address] | | | [place] [address] | + + + | Home Phone [...] + | Jessica Shepard | ECON | [address] | | | | | [place] | | | | | [address] | | + + + + + | Bel Solis | ECON | Unknown | | + + + + + Care Team Providers + +------+ + | Care Chip Mixing Machine Operator Name | Role | Phone [...] + + | 05/15/ | Office | [facility] | Dylan Gaston, | Chronic | | 2020 | Visit | INFECTIOUS DISEASE | Hero Malave MD | osteomyelitis of | | | | [address] | [address] | right foot (HCC) | | | | [place], [place] | [place] [address] | (Primary Dx); Acute | | | | [address] | [phone] | osteomyelitis of | | | | [phone] | | metatarsal bone, | | | [...] Garcia MD - 05/15/2019 3:20 PM PST [facility] Service: Infectious Diseases Outpatient Follow [...] atory failurewho presents as a transfer from [place] ED. Patient is somewhat of a poor historian so the majority of the history is obtained from the record and from the ED physic jacob. Patient had recently been admitted to the [facility] from 03/28/19 to 04/04/19 w here he was treated/diagnosed with systolic heart failure, type 2 WI/NSTEMI, SHAE, ARF. It ap pears that patient [...] on the . Patient was discharged to [facility]. While there patient apparently became decompensated and desaturated into t he 80s so patient was brought the to ED at [facility] again (03/1618). Patient was found to [...] coverage a call was made to the construction grip feeder catcher tobacco here at [facility] (Dr. Jessenia Wallace), who recommended patient be [...] Procedure: CYSTOSCOPY; Surgeon: Aleksander Montiel MD; Location: [facility] CHOLECYSTECTOMY FEMORAL-TIBIAL BYPASS GRAFT Right 04/18/2019 Procedure: BYPASS GRAFT FEMORAL-TIBIAL; Surgeon: Gianluca Robbins MD; Location: [facility] HERNIA REPAIR TOE AMPUTATION Right 11/21/2017 Procedure: Amputation Right 5th Metatarsal; Surgeon: Simone Aceves DPM; Location: [facility] SOCIAL HISTORY Social History Socioeconomic History Marital [...] file Gets together: Not on file Attends mormonism service: Not on file Active member of [...] bacterial infection 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
--- OUTSIDE RECORDS SUMMARY | ~2019-08-23 | XMS | Encounter Summary ---
Demographics + + + | Address | [address] | | | [place] [address] | + + + | Home Phone [...] Organization | [facility] | | | and [place] | + + + | Address | Unknown | + + + | Phone | Unavailable | + + + Support + + + + + | Name | Relationship | Address | Phone | + + + + + | Jessica Amezquita | ECON | [address] | | | | | [place] | | | | | [address] | | + + + + + | [place] Solis | ECON | Unknown | | + + + + + Care Team Providers + +------+ + | Care Bag Inspector Name | Role | Phone | + +------+ + PCP | Unavailable | + +------+ + Encounter Details +--------+ + + + + | Date | Type | Department | Care Team | Description | +--------+ + + + + | 04/21/ | Hospital | [facility] | Christina Da Silva | | | 2012 | Encounter | [facility] | MD Sunshine [address] | | | | | MA[address] | [facility], | | | | | [place], [place] | [place] [address] | | | | | [address] | [phone] | | | | | [phone] | | | | | | | Cody Goodwin | | | | | | MD Evelia [address] | | | | | | [place], [place] | | | | | | [address] | | | | | | [phone] | | | | | | | [...] Performed At | + + + | [facility] | [facility] | | Department [address] [facility], [place] | [facility] | | [ rep [address]] [ rep [facility] | | st zip] Signed | - IMAGING | | | | | Patient Name: BIAREAGAN Physician: | | | BILL.[birth year] : 1945 Age: 67 Sex: M Unit #: [id number] | | | Exam Date: 04/21/12 Location: ER | | | Report #: [id number] Page: | | | %(RAD)RES..mtdd.print.filter("pg") of %(RAD) | | | RES..mtdd.print.filter("tpg") | | | | | | Accession Number: [id number] | | | ABD[facility] 04/22/2012 [...] Transcribed Date/Time: | | | 04/22/2012 18:46 Online Communications Manager: | | | <<Signature on File>> | | | Rico | | | MD Jack04/23/12 0933 <Electronically signed by Rico Santiago MD> | | | Rico Santiago MD 04/22/12 1424 Online Communications Manager: Abhishek | | | Ljavlljodrllp82/02/13 1846 Cody Goodwin MD | | | | | + + + + + + + + | Performing | Address | City/State/[facility] | Phone Number | | Organization | | | | + + + + + | [facility] | [address] | [place], [place] | [phone] | | [facility] | | [address] | | | - IMAGING | | | | + + + + + CT Abdomen Pelvis w Contrast (04/22/2012 11:43 AM PST) + + | Specimen | + + | | + + + + + | Narrative | Performed At | + + + | [facility] | [place] | | Department [address], [place] | [facility] | | [ rep [address]] [ rep ct [facility] | | st zip] Signed | - IMAGING | | | | | Patient Name: REAGAN AMEZQUITA Physician: | | | BILL. : 1945 Age: 67 Sex: M Unit #: [id number] | | | Exam Date: 04/21/12 Location: ER | | | Report #: [id number] Page: | | | %(RAD)RES..mtdd.print.filter("pg") of %(RAD) | | | RES..mtdd.print.filter("tpg") | | | | | | Accession Number: [id number] | | | CT SCAN OF THE [...] | | PRELIMINARY REPORT WAS SENT BY [facility] AT 10:02 P.M. ON | | | 04/21/12. Dictated Date/Time: 04/22/2012 11:43 | | | Transcribed Date/Time: 04/22/2012 15:29 Online Communications Manager: | | | <<Signature on File>> | | | Rico | | | MD Jack04/23/12 0933 <Electronically signed by Rico Santiago MD> | | | Rico Santiago MD 04/22/12 1143 Online Communications Manager: Abhishek | | | Iqiwkcwjpevob69/02/13 1529 Cody Goodwin MD | | | | | + + + + + + + + | Performing | Address | City/State/Zipcode | Phone Number | | Organization | | | | + + + + + | [facility] | [address] | [place] | [phone] | | [facility] | | [address] | | | - IMAGING | | [...] + | [facility] | [address] | [place] | [phone] | | [facility] | | [address] | | | - LABORATORY | | | | + + + + + | [facility] | [address] | [place], [place] | | | [facility] | | [address] | | | - LABORATORY | [...] + | [facility] | [address] | [place] | [phone] | | [facility] | | [facility] | | | - LABORATORY | | | | + + + + + | [facility] | [address] | [place], [place] | | | [facility] | | [address] [place] [address] | | | - LABORATORY | | | | + + + + + documented in this encounter Visit Diagnoses Not on filedocumented in this encounter
--- OUTSIDE RECORDS SUMMARY | ~2019-08-23 | XMS | Encounter Summary ---
Demographics + + + | Address | [address] | | | [place] [address] | + + + | Home Phone [...] + | Jessica Shepard | ECON | [address] | | | | | [place] | | | | | [address] | | + + + + + | Bel Solis | ECON | Unknown | | + + + + + Care Team Providers + +------+ + | Care Assistant Finance Director Name | Role | Phone | + +------+ + | Jamar Manuel MD | PCP | | + +------+ + Encounter Details +--------+---------+ + + + | Date | Type | Department | Care Team | Description | +--------+---------+ + + + | 04/18/ | Surgery | [facility] | Gianluca Robbins MD | [facility] | | 2019 | | [facility] | [address] | FEMORAL-TIBIAL | | | | OPERATING ROOM [address] | [place], [place] | | | | | [address] | [address] | | | | | [place], [place] | | | | | | [address] | | | | | | [phone] | | | +--------+---------+ + + + [...] other chronic comorbidities who pre sents to [facility] on 04/06 for shortness of breath admitted with 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 The patient was admitted to regular medical floor and started on optimal medical management . On-call senior it recruiter (Dr. Ruelas) recommended continued medical management. Patient [...] inferior defect with partial improvement at rest doubler operator was i nformed by hospitalist colleague recommended [...] their primary care provider within 1 w [place] after discharge, follow-up with ID in 2 weeks after discharge, follow-up with vascular s urgery as per their recommendations or otherwise within 2 weeks after discharge. The patien t will need to follow-up with his outpatient senior it recruiter within 1 to 2 weeks after discharg [...] Results Results Reviewed. [facility]: [facility] [address] [facility] [phone] Bhanu Seaman PA-C [address] [place] [facility] [address] In 2 weeks Jamar Manuel MD [address] [place] [address] Schedule an appointment as soon as possible for a visit in 1 week Hero Gaston MD [address] [facility] [address] Schedule an appointment as soon as possible for a visit in 2 weeks Post hospital discharge follow-up Dr. [place] Ruelas [address] [facility] [address] [facility] [address] Schedule an appointment as soon as [...] mg per tablet aka: NORCO . Disposition: mcc Condition: Stable Code Status: Full Code Discharge [...] numbness Complications from anesthesia Date Last Reviewed: 08/20/201519991911-1621 [employer]. [address] [place] [id number]. All righ ts reserved. This information is [...] Vladimir Chapin RN 04/21/2019 2:40 PM Bhanu Wakfeield PA-C - 04/21/2019 8:21 AM PST [facility] Service: Vascular Surgery Progress Note SUBJECTIVE Patient Summary: 74 y.o. man with complex medical issues and LE ischemic ulcers, he wa s recently admitted to the [facility] from 03/28/19 to 04/04/19 where he was treated/ diagnosed with systolic heart failure, type 2 SD/NSTEMI, SHAE, ARF. O2 desaturation brought him [facility] SNF [place] [facility] and current admission today with [...] Anaya RN - 04/20/2019 4:40 PM PST [facility] Service: Wound Care Follow Up Note [...] Primary Wound Type: Diabetic Ulcer Side: Left [place] ation: lateral Location: foot Wound Subtype: ulceration, [...] M D - 04/20/2019 2:16 PM PST [facility] Service: Hospitalist Progress Note Pt: Reagan [...] hematuria. Recent history notable for admit to [facility] from 03/28/19 to 04/04/2019 for CHF exacerbation with eventual dischar ge to [facility]. He then re-presented to same [...] encounter as of 04/20/19-14:16 IMAGING: Reviewed in [facility], no new results. PROBLEM LIST [...] Received 8 days of IV antibiotics at [facility] discharged home on with augmentin, now readmitted on 04/06 at [facility] and started on rocephin after sending 2 [...] indicated. Thank You, Sunshine Love, PharmD, [facility] 04/20/19 1:52 PM Nandini Sánchez se, MD - 04/20/2019 8:56 AM PST [facility] Service: Infectious Diseases Progress Note Hospital [...] Component Value Units Date/Time Culture, Wound, Superficial [[id number]] (Abnormal) (Susceptibility) Collected: 04/06/191545 Order Status: Completed Lab Status: Final result Updated: 04/11/19 0728 Specimen: Body Fluid from Heel, Right Special Requests LT FOOT Special Requests Testing performed at [facility] [place] [address] RESULT -- 1+ ENTEROCOCCUS FAECALIS Aminoglycosides (except [...] Sensitive SUSCEPTIBLE JESSICA Final Testing performed at [facility], [address] [place] [address] Culture, Wound, Superficial [[id number]] Collected: 04/06/191545 Order Status: Completed Lab Status: Final result Updated: 04/08/19 0937 Specimen: Body Fluid from Heel, Right Special Requests RIGHT FOOT Special Requests Testing performed at [facility] [place] [address] RESULT -- 1+ NORMAL SKIN CELSA ISOLATED RESULT NO FURTHER WORKUP RESULT Testing performed at [facility], [address] [place] [address] Comment: Testing performed at [facility], [address] [place] [address] Microbiology Results (72 hrs) No results found [...] assisting with dosing and monitorization. Discussed with showcase maker regarding OPAT. Discussed with showcase maker regarding discharge planning. Dr. Dolan will take over ID service tomorrow. Please call if questions. Hero Richardson MD, MPH Infectious Diseases 04/20/19 ubbard, Sheila Diallo RN - 04/19/2019 7:20 PM PSTEnd of shift chart check complete. Sheila Cabrera RN unshine Love, [facility] - 04/19/2019 3:23 PM PSTFormatting [...] Shaver MD - 04/19/2019 2:46 PM PST [facility] Service: Hospitalist Progress Note Pt: Reagan Shepard AGE/SEX: 74 y.o. male ROOM: [facility]/9119- : 1945 PCP: Jamar Manuel MD ADMIT DATE: 04/06/2019 TODAY'S DATE: 04/19/2019 Hospital Day/Hospital Course: LOS: 13 days Mr. Shepard is a 74-year-old gentleman with a history of bilateral nonhealing diabetic trisha t ulcers, and history of TBI, stroke, insulin dependent DM, who presents with CHF exacerbati on with hospital course complicated by gross hematuria. Recent history notable for admit to [facility] from 03/28/19 to 04/04/2019 for CHF exacerbation with eventual dischar ge to [facility]. He then re-presented to same [...] Received 8 days of IV antibiotics at [facility] discharged home on with augmentin, now readmitted on 04/06 at [facility] and started on rocephin after sending 2 [...] this [facility] be [facility]: Infectious Diseases Progress Note Hospital [...] Component Value Units Date/Time Culture, Wound, Superficial [[id number]] (Abnormal) (Susceptibility) Collected: 04/06/19 1546 Order Status: Completed Lab Status: Final result Updated: 04/11/19 0728 Specimen: Body Fluid from Heel, Right Special Requests LT FOOT Special Requests Testing performed at [facility];[address] [place] [address];[place] [address] RESULT -- 1+ ENTEROCOCCUS FAECALIS Aminoglycosides (except [...] Sensitive SUSCEPTIBLE JESSICA Final Ceftriaxone Sensitive SUSCEPTIBLE JESSIAC Final Ciprofloxacin Sensitive SUSCEPTIBLE JESSICA Final Gentamicin [...] Sensitive SUSCEPTIBLE JESSICA Final Testing performed at [facility], [address] [place] [address] Culture, Wound, Superficial [[id number]] Collected: 04/06/19 1546 Order Status: Completed Lab Status: Final result Updated: 04/08/1937 Specimen: Body Fluid from Heel, Right Special Requests RIGHT FOOT Special Requests Testing performed at [facility] [place] [address] RESULT -- 1+ NORMAL SKIN CELSA ISOLATED RESULT NO FURTHER WORKUP RESULT Testing performed at [facility], [address] [place] [address] Comment: Testing performed at [facility], [address] [place] [address] Culture, Blood [[id number]] Collected: 04/06/198 Order Status: Completed Lab Status: Final result Updated: 04/12/19 0652 Specimen: Peripheral Blood Special Requests R WRIST Special Requests Testing performed at [facility];[address] [place] [address] RESULT NO GROWTH 6 DAYS RESULT Testing performed at [facility], [address] [place] [address] Comment: Testing performed at [facility], [address] [place] [address] Culture, Blood [[id number]] Collected: 04/06/19330 Order Status: Completed Lab Status: Final result Updated: 04/12/1952 Specimen: Peripheral Blood Special Requests L WRIST Special Requests Testing performed at [facility] [place] [address] RESULT NO GROWTH 6 DAYS RESULT Testing performed at [facility], [address] [place] [address] Comment: Testing performed at [facility], [address] [place] [address] Microbiology Results (72 hrs) No results found [...] might be different from the o riginal. [facility] Service: Vascular Surgery Progress Note SUBJECTIVE Patient Summary: 74 y.o. man with complex medical issues and LE ischemic ulcers, he wa s recently admitted to the [facility] from 03/28/19 to 04/04/19 where he was treated/ diagnosed with systolic heart failure, type 2 SD/NSTEMI, SHAE, ARF. O2 desaturation brought him from SNF [place] [facility] and current admission today with [...] Rachel Altamirano RN - 04/19/2019 5:46 AM [id number] left foot dressing change complete per order. [...] Grover Shaver MD - 4:52 PM PST [facility] Service: Hospitalist Progress Note Pt: Reagan Shepard AGE/SEX: 74 y.o. male ROOM: [facility] [place] [facility]TRA OP POOL/[facility] : 1945 PCP: Jamar Manuel MD ADMIT DATE: 04/06/2019 TODAY'S DATE: 04/18/2019 Hospital Day/Hospital Course: LOS: 12 days Mr. Shepard is a 74-year-old gentleman with a history of bilateral nonhealing diabetic trisha t ulcers, and history of TBI, stroke, insulin dependent DM, who presents with CHF exacerbati on with hospital course complicated by gross hematuria. Recent history notable for admit to [facility] from 03/28/19 to 04/04/2019 for CHF exacerbation with eventual dischar ge to [facility]. He then re-presented to same [...] the last 72 hours. IMAGING: Reviewed in [facility], no new results. PROBLEM LIST [...] Received 8 days of IV antibiotics at [facility] discharged home on with augmentin, now readmitted on 04/06 at [facility] and started on rocephin after sending 2 [...] indicated. Thank You, Sunshine Love, PharmD, [facility] 04/18/19 2:45 PM Syed López PTA [...] might be different from t kevin original. [facility] Service: Infectious Diseases Progress Note Hospital [...] Component Value Units Date/Time Culture, Wound, Superficial [[id number]] (Abnormal) (Susceptibility) Collected: 04/06/19 1546 Order Status: Completed Lab Status: Final result Updated: 04/11/19 0728 Specimen: Body Fluid from Heel, Right Special Requests LT FOOT Special Requests Testing performed at [facility];[address] [place] [address];[place] [address] RESULT -- 1+ ENTEROCOCCUS FAECALIS Aminoglycosides (except [...] Sensitive SUSCEPTIBLE JESSICA Final Testing performed at [facility], [address] [place] [address] Culture, Wound, Superficial [[id number]] Collected: 04/06/19 1546 Order Status: Completed Lab Status: Final result Updated: 04/08/19 0937 Specimen: Body Fluid from Heel, Right Special Requests RIGHT FOOT Special Requests Testing performed at [facility] [place] [address] RESULT -- 1+ NORMAL SKIN CELSA ISOLATED RESULT NO FURTHER WORKUP RESULT Testing performed at [facility], [address] [place] [address] Comment: Testing performed at [facility], [address] [place] [address] Culture, Blood [[id number]] Collected: 04/06/19 0338 Order Status: Completed Lab Status: Final result Updated: 04/12/19 0652 Specimen: Peripheral Blood Special Requests R WRIST Special Requests Testing performed at [facility] [place] [address] 83582 RESULT NO GROWTH 6 DAYS RESULT Testing performed at [facility], [address] [place] [address] Comment: Testing performed at [facility], [address] [place] [address] 89731 Culture, Blood [[id number]] Collected: 04/06/19 0331 Order Status: Completed Lab Status: Final result Updated: 04/12/19 0652 Specimen: Peripheral Blood Special Requests L WRIST Special Requests Testing performed at [facility] [place] [address] RESULT NO GROWTH 6 DAYS RESULT Testing performed at [facility], [address] [place] [address] Comment: Testing performed at [facility], [address] [place] [address] Microbiology Results (72 hrs) No results found [...] might be different from the o riginal. [facility] Service: Vascular Surgery Progress Note SUBJECTIVE Patient Summary: 74 y.o. man with complex medical issues and LE ischemic ulcers, he wa s recently admitted to the [facility] from 03/28/19 to 04/04/19 where he was treated/ diagnosed with systolic heart failure, type 2 SD/NSTEMI, SHAE, ARF. O2 desaturation brought him from SNF [place] [facility] and current admission today with [...] of feet - [facility]. Cryovein is in house [...] of shift chart check review Sunshine Chen [facility] - 04/17/2019 1:38 PM PST [...] indicated. Thank You, Sunshine Love, PharmD, [facility] 04/17/19 1:38 PM Grover Shaver MD - 04/17/2019 12:25 PM PST [facility] Service: Hospitalist Progress Note Pt: Reagan Shepard AGE/SEX: 74 y.o. male ROOM: Pending sale to [facility]4452-01 : 1945 PCP: Jamar Manuel MD ADMIT DATE: 04/06/2019 TODAY'S DATE: 04/17/2019 Hospital Day/Hospital Course: LOS: 11 days Mr. Shepard is a 74-year-old gentleman with a history of bilateral nonhealing diabetic trisha t ulcers, and history of TBI, stroke, insulin dependent DM, who presents with CHF exacerbati on with hospital course complicated by gross hematuria. Recent history notable for admit to [facility] from 03/28/19 to 04/04/2019 for CHF exacerbation with eventual dischar ge to [facility]. He then re-presented to same [...] Received 8 days of IV antibiotics at [facility] discharged home on with augmentin, now readmitted on 04/06 at [facility] and started on rocephin after sending 2 [...] Rico Modi MD - 11:19 AM PST [facility] Service: Cardiology/[facility] Interventional cardiology note RE: Reagan [...] note might be [facility]: Infectious Diseases Progress Note Hospital [...] Component Value Units Date/Time Culture, Wound, Superficial [[id number]] (Abnormal) (Susceptibility) Collected: 04/06/19 1546 Order Status: Completed Lab Status: Final result Updated: 04/11/19 0728 Specimen: Body Fluid from Heel, Right Special Requests LT FOOT Special Requests Testing performed at [facility];[address] [place] [address];[place] [address] RESULT -- 1+ ENTEROCOCCUS FAECALIS Aminoglycosides (except [...] Sensitive SUSCEPTIBLE JESSICA Final Testing performed at [facility], [address] [place] [address]28 Culture, Wound, Superficial [[id number]] Collected: 04/06/19 1546 Order Status: Completed Lab Status: Final result Updated: 04/08/19936 Specimen: Body Fluid from Heel, Right Special Requests RIGHT FOOT Special Requests Testing performed at [facility];[address] [place] [address] RESULT -- 1+ NORMAL SKIN CELSA ISOLATED RESULT NO FURTHER WORKUP RESULT Testing performed at [facility], [address] [place] [address] Comment: Testing performed at [facility], [address] [place] [address] 9[address]16 Culture, Blood [[id number]] Collected: 04/06/198 Order Status: Completed Lab Status: Final result Updated: 04/12/1952 Specimen: Peripheral Blood Special Requests R WRIST Special Requests Testing performed at [facility];[address] [place] [address] 10668 RESULT NO GROWTH 6 DAYS RESULT Testing performed at [facility], [address] [place] [address] 54846 Comment: Testing performed at [facility], [address] [place] [address]653 Culture, Blood [[id number]] Collected: 04/06/191 Order Status: Completed Lab Status: Final result Updated: 04/12/1952 Specimen: Peripheral Blood Special Requests L WRIST Special Requests Testing performed at [facility];[address] [place] [address]60[address] RESULT NO GROWTH 6 DAYS RESULT Testing performed at [facility], [address] [place] [address] Comment: Testing performed at [facility], [address] [place] [address] Microbiology Results (72 hrs) No results found [...] might be different from the o riginal. [facility] Service: Vascular Surgery Progress Note SUBJECTIVE Patient Summary: 74 y.o. man with complex medical issues and LE ischemic ulcers, he wa s recently admitted to the [facility] from 03/28/19 to 04/04/19 where he was treated/ diagnosed with systolic heart failure, type 2 SD/NSTEMI, SHAE, ARF. O2 desaturation brought him from SNF to [facility] and current admission today with [...] Sánchez MD - 04/16/2019 6:49 PM PST [facility] Service: Infectious Diseases Progress Note Hospital [...] Component Value Units Date/Time Culture, Wound, Superficial [[id number]] (Abnormal) (Susceptibility) Collected: 04/06/19 1546 Order Status: Completed Lab Status: Final result Updated: 04/11/19 8428 Specimen: Body Fluid from Heel, Right Special Requests LT FOOT Special Requests Testing performed at [facility];[address] [place] [address] RESULT -- 1+ ENTEROCOCCUS FAECALIS Aminoglycosides (except [...] Sensitive SUSCEPTIBLE JESSICA Final Testing performed at [facility], [address] [place] [address] 48566 Culture, Wound, Superficial [[id number]] Collected: 04/06/19 1546 Order Status: Completed Lab Status: Final result Updated: 04/08/19 0937 Specimen: Body Fluid from Heel, Right Special Requests RIGHT FOOT Special Requests Testing performed at [facility];[address] [place] [address] RESULT -- 1+ NORMAL SKIN CELSA ISOLATED RESULT NO FURTHER WORKUP RESULT Testing performed at [facility], [address] [place] [address] Comment: Testing performed at [facility], [address] [place] [address]23 Culture, Blood [[id number]] Collected: 04/06/19 0338 Order Status: Completed Lab Status: Final result Updated: 04/12/19 0652 Specimen: Peripheral Blood Special Requests R WRIST Special Requests Testing performed at [facility];[address] [place] [address] 35092 RESULT NO GROWTH 6 DAYS RESULT Testing performed at [facility], [address] [place] [address] Comment: Testing performed at [facility], [address] [place] [address] 13693 Culture, Blood [[id number]] Collected: 04/06/19 0331 Order Status: Completed Lab Status: Final result Updated: 04/12/19 0652 Specimen: Peripheral Blood Special Requests L WRIST Special Requests Testing performed at [facility];[address] [place] [address]2235 RESULT NO GROWTH 6 DAYS RESULT Testing performed at [facility], [address] [place] [address] Comment: Testing performed at [facility], [address] [place] [address] 31794 Microbiology Results (72 hrs) No results found [...] with pt. End of shift audit complete. Cirsta Sutherland RN rover Charles MD - 04/16/2019 5:02 PM PSTFormatti ng of this note might be different from the original. [facility] Service: Hospitalist Progress Note Pt: Reagan [...] hematuria. Recent history notable for admit to [facility] from 03/28/19 to 04/04/2019 for CHF exacerbation with eventual dischar ge to [facility]. He then re-presented to same [...] 04/14/19 0629 BNP 587.58* IMAGING: Reviewed in [facility], no new results. PROBLEM LIST [...] Received 8 days of IV antibiotics at [facility] discharged home on with augmentin, now readmitted on 04/06 at [facility] and started on rocephin after sending 2 [...] [address] RD 04/16/2019 3:21 PM Sunshine Chen, [facility] - 04/16/2019 12:18 PM PST [...] Patient encouraged to discuss medication changes with senior it recruiter ragini stanley to stopping medications or making any changes. Patient's questions answered. Heart Fail ure Hot Line number provided to patient. Face to face time was spent with patient providing counseling and education for congestive heart failure. Bhanu Wakefield P A-C - 04/16/2019 8:43 AM PST [facility] Service: Vascular Surgery Progress Note SUBJECTIVE Patient Summary: 74 y.o. man with complex medical issues and LE ischemic ulcers, he wa s recently admitted to the [facility] from 03/28/19 to 04/04/19 where he was treated/ diagnosed with systolic heart failure, type 2 SD/NSTEMI, SHAE, ARF. O2 desaturation brought him from SNF to [facility] and current admission today with [...] MD - 04/15/2019 1 2:48 PM PST [facility] Service: Hospitalist Progress Note Pt: Reagan Shepard AGE/SEX: 74 y.o. male ROOM: [address] [place], [place] [id number]- : 1945 PCP: Jamar Manuel MD ADMIT DATE: 04/06/2019 TODAY'S DATE: 04/15/2019 Hospital Day/Hospital Course: LOS: 9 days Mr. Shepard is a 74-year-old gentleman with a history of bilateral nonhealing diabetic trisha t ulcers, and history of TBI, stroke, insulin dependent DM, who presents with CHF exacerbati on with hospital course complicated by gross hematuria. Recent history notable for admit to [facility] from 03/28/19 to 04/04/2019 for CHF exacerbation with eventual dischar ge to [facility]. He then re-presented to same [...] 04/14/19 0629 BNP 587.58* IMAGING: Reviewed in [facility], no new results. PROBLEM LIST [...] risk stratification . -cardiology consulted -NPO at [facility] for nuc med stress test in morning [...] Received 8 days of IV antibiotics at [facility] discharged home on with augmentin, now readmitted on 04/06 at [facility] and started on rocephin after sending 2 [...] of care purp ose roctor, Sheila Brown [facility] - 04/15/2019 10:55 AM PST [...] might be differ ent from the original. [facility] Service: Infectious Diseases Progress Note Hospital [...] Component Value Units Date/Time Culture, Wound, Superficial [[id number]] (Abnormal) (Susceptibility) Collected: 04/06/191545 Order Status: Completed Lab Status: Final result Updated: 04/11/19 0728 Specimen: Body Fluid from Heel, Right Special Requests LT FOOT Special Requests [place] [facility] [place] [address] 99478 RESULT -- 1+ ENTEROCOCCUS FAECALIS Aminoglycosides (except [...] Sensitive SUSCEPTIBLE JESSICA Final Testing performed at [facility], [address] [place] [address] 84267 Culture, Wound, Superficial [[id number]] Collected: 04/06/191545 Order Status: Completed Lab Status: Final result Updated: 04/08/19 0937 Specimen: Body Fluid from Heel, Right Special Requests RIGHT FOOT Special Requests Testing performed [place] [facility] [place] [address] 49636 RESULT -- 1+ NORMAL SKIN CELSA ISOLATED RESULT NO FURTHER WORKUP RESULT Testing performed at [facility], [address] [place] [address] Comment: Testing performed at [facility], [address] [place] [address] 02233 Culture, Blood [[id number]] Collected: 04/06/19 0338 Order Status: Completed Lab Status: Final result Updated: 04/12/1952 Specimen: Peripheral Blood Special Requests R WRIST Special Requests Testing performed [place] [facility] [place] [address] 50177 RESULT NO GROWTH 6 DAYS RESULT Testing performed at [facility], [address] [place] [address] 48354 Comment: Testing performed at [facility], [address] [place] [address] 95680 Culture, Blood [[id number]] Collected: 04/06/19330 Order Status: Completed Lab Status: Final result Updated: 04/12/1952 Specimen: Peripheral Blood Special Requests L WRIST Special Requests Testing performed at [facility] [place] [address] 41181 RESULT NO GROWTH 6 DAYS RESULT Testing performed at [facility], [place] [place] [address] Comment: Testing performed at [facility], [address] [place] [address] 31491 Microbiology Results (72 hrs) No results found [...] note might be different from the origin [facility] Service: Hospitalist Progress Note Pt: Reagan Shepard AGE/SEX: 74 y.o. male ROOM: 4452/4452-01 : 1945 PCP: Jamar Manuel MD ADMIT DATE: 04/06/2019 TODAY'S DATE: 04/14/2019 Hospital Day/Hospital Course: LOS: 8 days Mr. Shepard is a 74-year-old gentleman with a history of bilateral nonhealing diabetic trsiha t ulcers, and history of TBI, stroke, insulin dependent DM, who presents with CHF exacerbati on with hospital course complicated by gross hematuria. Recent history notable for admit to [facility] from 03/28/19 to 04/04/2019 for CHF exacerbation with eventual dischar ge to [facility]. He then re-presented to same [...] 04/14/19 0629 BNP 587.58* IMAGING: Reviewed in [facility], no new results. PROBLEM LIST [...] Received 8 days of IV antibiotics at [facility] discharged home on with augmentin, now readmitted on 04/06 at [facility] and started on rocephin after sending 2 [...] H Code status: Full Dispo: back to [facility] pending improvement in gross hematuria, CHF exacerbation, re peat angiogram, final ID recs, likely 4-5 more days in hospital Grover Charles MD 1:29 PM 04/14/2019 Portions of this chart may have been copied from previous notes for continuity of care purp ose Lyric Molina RN - 04/14/2019 1:27 PM PST [facility] Service: Wound Care Follow Up Note [...] any additional questions. Lyric Mclain RN, CMSRN, [facility] Inpatient Wound Ostomy Care [phone] 04/14/2019 1:29 PM Dheeraj Barraza, PT - [...] vs stable.Vandana Luciano RN obrandi, Meghan Wolff, [facility] - 04/14/2019 6:31 AM PST [...] Shaver MD - 04/13/2019 4:02 PM PST [facility] Service: Hospitalist Progress Note Pt: Reagan Shepard AGE/SEX: 74 y.o. male ROOM: [facility]2/4452-01 : 1945 PCP: Jamar Manuel MD ADMIT DATE: 04/06/2019 TODAY'S DATE: 04/13/2019 Hospital Day/Hospital Course: LOS: 7 days Mr. Shepard is a 74-year-old gentleman with a history of bilateral nonhealing diabetic trisha t ulcers, and history of TBI, stroke, insulin dependent DM, who presents with CHF exacerbati on with hospital course complicated by gross hematuria. Recent history notable for admit to [facility] from 03/28/19 to 04/04/2019 for CHF exacerbation with eventual dischar ge to [facility]. He then re-presented to same [...] the last 168 hours. IMAGING: Reviewed in [facility], no new results. PROBLEM LIST [...] Received 8 days of IV antibiotics at [facility] discharged home on with augmentin, now readmitted on 04/06 at [facility] and started on rocephin after sending 2 [...] date with age appropriate cancer screening PPx: [facility] Code status: Full Dispo: [facility] [...] 113.3 kg Adjusted body weight: 89.1 kg [place] body weight: 73 kg Current Vital Signs: [...] [facility] Drawing a level once the patient [...] as indicated. Thank You, Sunshine Love, PharmD, [facility] 04/13/19 3:20 PM Nandini Sánchez se, MD - 04/13/2019 10:54 AM PST [facility] Service: Infectious Diseases Progress Note Hospital [...] Component Value Units Date/Time Culture, Wound, Superficial [[id number]] (Abnormal) (Susceptibility) Collected: 04/06/19 1546 Order Status: Completed Lab Status: Final result Updated: 04/11/19 0728 Specimen: Body Fluid from Heel, Right Special Requests LT FOOT Special Requests Testing performed [place] [facility] [place] [address];[place] [address] RESULT -- 1+ ENTEROCOCCUS FAECALIS Aminoglycosides (except [...] Sensitive SUSCEPTIBLE JESSICA Final Testing performed at [facility], [address] [place] [address] 83688 Culture, Wound, Superficial [[id number]] Collected: 04/06/19 1546 Order Status: Completed Lab Status: Final result Updated: 04/08/19936 Specimen: Body Fluid from Heel, Right Special Requests RIGHT FOOT Special Requests Testing performed at [facility] [place] [address] 74764 RESULT -- 1+ NORMAL SKIN CELSA ISOLATED RESULT NO FURTHER WORKUP RESULT Testing performed at [facility], [address] [place] [address] 52776 Comment: Testing performed at [facility], [address] [place] [address] 11316 Culture, Blood [[id number]] Collected: 04/06/198 Order Status: Completed Lab Status: Final result Updated: 04/12/19651 Specimen: Peripheral Blood Special Requests R WRIST Special Requests Testing performed at [facility] [place] [address] 78752 RESULT NO GROWTH 6 DAYS RESULT Testing performed at [facility], [address] [place] [address] 41563 Comment: Testing performed at [facility], [address] [place] [address] 01055 Culture, Blood [[id number]] Collected: 04/06/19 033 Order Status: Completed Lab Status: Final result Updated: 04/12/19651 Specimen: Peripheral Blood Special Requests L WRIST Special Requests Testing performed at [facility] [place] [address] 02662 RESULT NO GROWTH 6 DAYS RESULT Testing performed at [facility], [address] [place] [address] 39377 Comment: Testing performed at [facility], [address] [place] [address] 04071 Microbiology Results (72 hrs) No results found [...] might be different from the o riginal. [facility] Service: Vascular Surgery Progress Note SUBJECTIVE Patient Summary: 74 y.o. man with complex medical issues and LE ischemic ulcers, he wa s recently admitted to the [facility] from 03/28/19 to 04/04/19 where he was treated/ diagnosed with systolic heart failure, type 2 SD/NSTEMI, SHAE, ARF. O2 desaturation brought him from SNF [place] [facility] and current admission today with [...] risks. Signed consent obtained. Will proceed to [facility] [employer] today for right leg angiogram. Moderate Sedation [...] might be different from the o riginal. [facility] Service: Infectious Diseases Progress Note Hospital [...] Component Value Units Date/Time Culture, Wound, Superficial [[id number]] (Abnormal) (Susceptibility) Collected: 04/06/19 1546 Order Status: Completed Lab Status: Final result Updated: 04/11/19 0728 Specimen: Body Fluid from Heel, Right Special Requests LT FOOT Special Requests Testing performed at [facility] [place] [address] 91530 RESULT -- 1+ ENTEROCOCCUS FAECALIS Aminoglycosides (except [...] Sensitive SUSCEPTIBLE JESSICA Final Testing performed at [facility], [address] [place] [address] 25343 Culture, Wound, Superficial [[id number]] Collected: 04/06/19 1546 Order Status: Completed Lab Status: Final result Updated: 04/08/19 0937 Specimen: Body Fluid from Heel, Right Special Requests RIGHT FOOT Special Requests Testing performed [place] [facility] [place] [address] 78502 RESULT -- 1+ NORMAL SKIN CELSA ISOLATED RESULT NO FURTHER WORKUP RESULT Testing performed at [facility], [address] [place] [address] Comment: Testing performed at [facility], [address] [place] [address] 17848 Culture, Blood [[id number]] Collected: 04/06/19 0338 Order Status: Completed Lab Status: Final result Updated: 04/12/19 0652 Specimen: Peripheral Blood Special Requests R WRIST Special Requests Testing performed at [facility] [place] [address] 95028 RESULT NO GROWTH 6 DAYS RESULT Testing performed at [facility], [address] [place] [address] Comment: Testing performed at [facility], [address] [place] [address] 78227 Culture, Blood [[id number]] Collected: 04/06/19 0331 Order Status: Completed Lab Status: Final result Updated: 04/12/1952 Specimen: Peripheral Blood Special Requests L WRIST Special Requests Testing performed at [facility] [place] [address] 96943 RESULT NO GROWTH 6 DAYS RESULT Testing performed at [facility], [address] [place] [address] Comment: Testing performed at [facility], [address] [place] [address] 21883 Microbiology Results (72 hrs) No results found [...] this note might be different from the [facility] Service: Hospitalist Progress [...] hematuria. Recent history notable for admit to [facility] from 03/28/19 to 04/04/2019 for CHF exacerbation with eventual dischar ge to [facility]. He then re-presented to same [...] Received 8 days of IV antibiotics at [facility] discharged home on with augmentin, now readmitted on 04/06 at [facility] and started on rocephin after sending 2 [...] H Code status: Full Dispo: back to [facility] pending improvement in gross hematuria, CHF exacerbation, re peat angiogram, final ID recs, likely 4-5 more days in hospital Grover Charles MD 4:43 PM 04/12/2019 Portions of this chart may have been copied from previous notes for continuity of care purp ose Bhanu Wakefield PA-C - 04/12/2019 4:00 PM PST [facility] Service: Vascular Surgery Progress Note SUBJECTIVE Patient Summary: 74 y.o. man with complex medical issues and LE ischemic ulcers, he wa s recently admitted to the [facility] from 03/28/19 to 04/04/19 where he was treated/ diagnosed with systolic heart failure, type 2 SD/NSTEMI, SHAE, ARF. O2 desaturation brought him from SNF [place] [facility] and current admission today with [...] Bhanu Seaman PA-C Vascular Surgery Sunshine Chen, [facility] - 04/12/2019 12:27 PM PST Vancomycin Dosing Per Pharmacy Subjective/Objective Reagan Shepard is a 74 y.o. 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 Additional antimicrobials: zosyn Quadriplegic/Paraplegic: no Diabetes: yes Baseline Serum Creatinine: 0.6 mg/dL Actual weight: 113.3 kg Adjusted body weight: 89.1 kg [place] body weight: 73 kg Current Vital Signs: [...] indicated. Thank You, Sunshine Love, PharmD, [facility] 04/12/19 3:27 PM Grover Shaver MD - 04/11/2019 5:06 PM PST [facility] Service: Hospitalist Progress Note Pt: Reagan [...] hematuria. Recent history notable for admit to [facility] from 03/28/19 to 04/04/2019 for CHF exacerbation with eventual dischar ge to [facility]. He then re-presented to same [...] INR 1.2 PTT 34* IMAGING: Reviewed in [facility], no new results. PROBLEM LIST [...] Received 8 days of IV antibiotics at [facility] discharged home on with augmentin, now readmitted on 04/06 at [facility] and started on rocephin after sending 2 [...] of care purp ose roctor, Sheila Brown [facility] - 04/11/2019 2:03 PM PST Vancomycin Dosing Per Pharmacy Subjective/Objective Reagan Shepard is a 74 y.o. 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 Additional antimicrobials: zosyn Quadriplegic/Paraplegic: no Diabetes: yes Baseline Serum Creatinine: 0.6 mg/dL Actual weight: 113.3 kg Adjusted body weight: 89.1 kg [place] body weight: 73 kg Current Vital Signs: [...] nomogram, current renal function, and desired trough. [facility] ed on patient history, vancomycin 1250 [...] therapy as indicated. Thank You, Sheila Ahuja, [facility], 04/11/2019, 1:51 PM Hero Sánchez MD - 04/11/2019 10:09 AM PSTFormatting of this note might be different from stephanie brown original. [facility] Service: Infectious Diseases Progress Note Hospital [...] Component Value Units Date/Time Culture, Wound, Superficial [[id number]] (Abnormal) (Susceptibility) Collected: 04/06/19 1546 Order Status: Completed Lab Status: Final result Updated: 04/11/1928 Specimen: Body Fluid from Heel, Right Special Requests LT FOOT Special Requests Testing performed at [facility] [place] [address];[place] [address] RESULT -- 1+ ENTEROCOCCUS FAECALIS Aminoglycosides (except [...] Sensitive SUSCEPTIBLE JESSICA Final Testing performed at [facility], [address] [place] [address], [place] [address] Culture, Wound, Superficial [[id number]] Collected: 04/06/19 1546 Order Status: Completed Lab Status: Final result Updated: 04/08/19 0937 Specimen: Body Fluid from Heel, Right Special Requests RIGHT FOOT Special Requests Testing performed at [facility] [place] [address] 93857 RESULT -- 1+ NORMAL SKIN CELSA ISOLATED RESULT NO FURTHER WORKUP RESULT Testing performed at [facility], [address] [place] [address] 00959 Comment: Testing performed at [facility], [address] [place] [address] 22944 Culture, Blood [[id number]] Collected: 04/06/19 0338 Order Status: Completed Lab Status: Preliminary result Updated: 04/07/19 0813 Specimen: Peripheral Blood Special Requests R WRIST Special Requests Testing performed at [facility] [place] [address] 63405 RESULT NO GROWTH AT THIS TIME RESULT Testing performed at [facility], [address] [place] [address] 07523 Comment: Testing performed at [facility], [address] [place] [address] 22814 Culture, Blood [[id number]] Collected: 04/06/19 0331 Order Status: Completed Lab Status: Preliminary result Updated: 04/07/19 0813 Specimen: Peripheral Blood Special Requests L WRIST Special Requests Testing performed at [facility] [place] [address] 02431 RESULT NO GROWTH AT THIS TIME RESULT Testing performed at [facility], [address] [place] [address] 44057 Comment: Testing performed at [facility], [address] [place] [address] 82672 Microbiology Results (72 hrs) No results found [...] Shaver MD - 04/10/2019 4:51 PM PST [facility] Service: Hospitalist Progress Note Pt: Reagan Shepard AGE/SEX: 74 y.o. male ROOM: [facility]2/4452-01 : 1945 PCP: Jamar Manuel MD ADMIT DATE: 04/06/2019 TODAY'S DATE: 04/10/2019 Hospital Day/Hospital Course: LOS: 4 days Mr. Shepard is a 74-year-old gentleman with a history of bilateral nonhealing diabetic trisha t ulcers, and history of TBI, stroke, insulin dependent DM, who presents with CHF exacerbati on with hospital course complicated by gross hematuria. Recent history notable for admit to [facility] from 03/28/19 to 04/04/2019 for CHF exacerbation with eventual dischar ge to [facility]. He then re-presented to same [...] INR 1.2 PTT 34* IMAGING: Reviewed in [facility], no new results. PROBLEM LIST [...] Received 8 days of IV antibiotics at [facility] discharged home on with augmentin, now readmitted on 04/06 at [facility] and started on rocephin after sending 2 [...] note [facility] be [facility]: [facility]ious Diseases [facility] Hospital [...] Component Value Units Date/Time Culture, Wound, Superficial [[id number]] (Abnormal) (Susceptibility) Collected: 04/06/191545 Order Status: Completed Lab Status: Preliminary result Updated: 04/10/19 0936 Specimen: Body Fluid from Heel, Right Special Requests LT FOOT Special Requests Testing performed at [facility] [place] [address];[place] [address] RESULT -- 1+ ENTEROCOCCUS FAECALIS Aminoglycosides (except for high-level resistance testing), cephalosporins, clindamycin, an d trimethoprim-sulfamethoxazole may appear active in vitro but they are not effective clinic ally. RESULT -- 1+ ENTEROBACTER CLOACAE COMPLEX RESULT -- 1+ STAPHYLOCOCCUS AUREUS RESULT SUSCEPTIBILITY TO FOLLOW RESULT Testing performed at [facility], [address] [place] [address] Susceptibility Enterococcus faecalis (1) Antibiotic Interpretation Microscan [...] Sensitive SUSCEPTIBLE JESSICA Preliminary Testing performed at [facility], [address] [place] [address] 52338 Culture, Wound, Superficial [[id number]] Collected: 04/06/191545 Order Status: Completed Lab Status: Final result Updated: 04/08/19936 Specimen: Body Fluid from Heel, Right Special Requests RIGHT FOOT Special Requests Testing performed at [facility] [place] [address] 88454 RESULT -- 1+ NORMAL SKIN CELSA ISOLATED RESULT NO FURTHER WORKUP RESULT Testing performed at [facility], [address] [place] [address] 81363 Comment: Testing performed at [facility], [address] [place] [address] 84407 Culture, Blood [[id number]] Collected: 04/06/19337 Order Status: Completed Lab Status: Preliminary result Updated: 04/07/19812 Specimen: Peripheral Blood Special Requests R WRIST Special Requests Testing performed at [facility] [place] [address] 82339 RESULT NO GROWTH AT THIS TIME RESULT Testing performed at [facility], [address] [place] [address] 63175 Comment: Testing performed at [facility], [address] [place] [address] 29143 Culture, Blood [[id number]] Collected: 04/06/19330 Order Status: Completed Lab Status: Preliminary result Updated: 04/07/19812 Specimen: Peripheral Blood Special Requests L WRIST Special Requests Testing performed at [facility] [place] [address] 27150 RESULT NO GROWTH AT THIS TIME RESULT Testing performed at [facility], [address] [place] [address] 84552 Comment: Testing performed at [facility], [address] [place] [address] 52630 Microbiology Results (72 hrs) No results found [...] might be different from the ramiro melyssa. [facility] Service: Urology Progress Note Hospital Day: [...] of congestive failure. Signed by: Madison Solis [facility] Sign Date/Time: 04/09/2019 9:25 AM US [...] Lujan MD - 04/09/2019 6:21 PM PST [facility] Service: Urology Progress Note Hospital Day: [...] Color, UA STRAW Clarity, UA CLEAR Specific [place], Urine 1.006 1.002 - 1.030 Leukocyte esterase, [...] this note might be different from the [facility] Service: Vascular Surgery Progress Note SUBJECTIVE Patient Summary: 74 y.o. man with complex medical issues and LE ischemic ulcers, he wa s recently admitted to the [facility] from 03/28/19 to 04/04/19 where he was treated/ diagnosed with systolic heart failure, type 2 SD/NSTEMI, SHAE, ARF. O2 desaturation brought him from SNF [place] [facility] and current admission today with [...] will have him scheduled for 04/12/2019 at [facility] [employer] for his first leg, then will plan [...] Hospitalist Progress Note Reagan Shepard 74 y.o. [id number] [id number] male Jamar Manuel MD Hospital Day: LOS: 3 days Patient Summary: 74-year-old gentleman with past medical history of bilateral nonheali ng diabetic foot ulcer, and history of traumatic brain injury, stroke, diabetes mellitus typ e 2 insulin-dependent who was recently admitted to [facility] from 03/28/21 020 with acute hypoxic respiratory failure secondary to systolic CHF exacerbation with eject ion fraction of 40%, CTA chest negative for PE, troponin was minimally elevated 0.44 treated conservatively with medical therapy discharge to [facility] who went back to [facility] [...] 04/09/2019 1044 Gross per 24 hour Intake 80682 ml Output 9850 ml Net 856 ml [...] home on on Augmentin readmitted on at [facility] and started on Rocephin after sending [...] be different from the o riginal. [facility] Service: Podiatry Progress Note Hospital Day: LOS: 3 days Post-Op Day: * No surgery found * SUBJECTIVE Patient Summary: The patient is 74 y.o. male with significant cardiac and IDDM2 past medical history with recent admissions to [facility] where he was found to have el evated troponin level and he became decompensated and desaturated and was transferred to [facility] for a higher level of care. [...] Ady Mata RN - 04/08/2019 9:49 PM [id number]: pt a/o to all, vss. cbi in [...] Hospitalist Progress Note Reagan Shepard 74 y.o. [id number] male Jamar Manuel MD Hospital Day: LOS: 2 days Patient Summary: 74-year-old gentleman with past medical history of bilateral nonheali ng diabetic foot ulcer, and history of traumatic brain injury, stroke, diabetes mellitus typ e 2 insulin-dependent who was recently admitted to [facility] from 03/28/21 020 with acute hypoxic respiratory failure secondary to systolic CHF exacerbation with eject ion fraction of 40%, CTA chest negative for PE, troponin was minimally elevated 0.44 treated conservatively with medical therapy discharge to [facility] who went back to [facility] [...] results found for: POCTEMP, POCFIO2, POCPO2, BEART @[facility]@ PROBLEM LIST Principal Problem: Gross hematuria [...] home on on Augmentin readmitted on at [facility] and started on Rocephin after sending [...] might be different from th e original. [facility] Service: Cardiology Progress Note Hospital Day: [...] Nandini Barboza RN - 04/07/2019 10:48 PM [id number]: pt a/o to all, occasionally forgetful, vss. [...] Hospitalist Progress Note Reagan Shepard 74 y.o. [id number] male Jamar Manuel MD Hospital Day: LOS: 1 day Patient Summary: 74-year-old gentleman with past medical history of bilateral nonheali ng diabetic foot ulcer, and history of traumatic brain injury, stroke, diabetes mellitus typ e 2 insulin-dependent who was recently admitted to [facility] from 03/28/21 020 with acute hypoxic respiratory failure secondary to systolic CHF exacerbation with eject ion fraction of 40%, CTA chest negative for PE, troponin was minimally elevated 0.44 treated conservatively with medical therapy discharge to [facility] who went back to [facility] [...] home on on Augmentin readmitted on at [facility] and started on Rocephin after sending 2 set of blood cultures which remain negative. We will continue the patient on Rocephin IV while in the hospital then discharge home on Augmentin Anemia secondary to iron deficiency Plan start the patient on IV iron, guaiac stools pending Hypomagnesemia repleted DVT prophylaxis on heparin dAy Yin MD 04/07/2019 avage, Brayden Jennings MD - 04/07/2019 11:06 AM PSTFormatting of this note might be different from th tiffany original. [facility] Service: Cardiology Progress Note Hospital Day: [...] Andrés Novoa RN - 04/06/2019 10:15 AM [facility] Service: Wound/Ostomy Care Progress Note [...] | | | | | right foot ([facility]) | 04/20/2019 until | | | | | | 04/20/2020 | + +---------+--------+ + + | Comprehensive | Lab | Routin | Other | Weekly for 2 | | Metabolic Panel | | e | osteomyelitis of | Occurrences starting | | | | | right foot ([facility]) | 04/20/2019 until | | | | | | 04/20/2020 | + +---------+--------+ + + | C-Reactive Protein | Lab | Routin | Other | Weekly for 6 | | | | e | osteomyelitis of | Occurrences starting | | | | | right foot ([facility]) | 04/20/2019 until | | | | | | 04/20/2020 | + +---------+--------+ + + | Sedimentation Rate | Lab | Routin | Other | Weekly for 6 | | | | e | osteomyelitis of | Occurrences starting | | | | | right foot ([facility]) | 04/20/2019 until | | [...] 3.6 | 2.3 - 4.8 mg/dL | [facility] | | | | | | [facility]ORATORY | | + + + + + + | Estimated | >60Comment: GFR <60: | >60 | [facility] | | | GFR | CHRONIC KIDNEY [...] | | | | | performed at [facility] | | | | | | [facility];[place], [place] | | | | | | [address] | | | | + + + + + + + + | Specimen | + + | Blood | + + + + + + + | Performing | Address | City/State/Zipcode | Phone Number | | Organization | | | | + + + + + | [facility] | [address] | [place] [address] | [phone] | + + + + + POC Glucose (04/21/2019 11:54 AM PST) + + + + + + | Component | Value | Ref Range | Performed | Pathologist | | | | | At | Signature | + + + + + + | Glucose, | 164 (H)Comment: Testing | 65 - 99 mg/dL | [facility] | | | POC | performed at [facility] | | LAB[facility]ATORY | | | | [address];[place] | | | | | | [address] | | | | + + + + + + + + | Specimen | + + | | + + + + + + + | Performing | Address | City/State/Zipcode | Phone Number | | Organization | | | | + + + + + | [facility] | [address] | [place] [address] | [phone] | + + + + + POC [...] | | | POC | performed at [facility] | | LABORATORY | | | | [address];[place], [place] | | | | | | [address] | | | | + + + + + + + + | Specimen | + + | | + + + + + + + | Performing | Address | City/State/Zipcode | Phone Number | | Organization | | | | + + + + + | [facility] | [address] | [place] [address] | [phone] | + + + + + POC [...] | | | POC | performed at [facility] | | LABORATORY | | | | [address];[place] | | | | | | [address] | | | | + + + + + + + + | Specimen | + + | | + + + + + + + | Performing | Address | City/State/Zipcode | Phone Number | | Organization | | | | + + + + + | [facility] | [address] | [place] [address] | [phone] | + + + + + POC Glucose (04/20/2019 9:08 PM PST) + + + + + + | Component | Value | Ref Range | Performed | Pathologist | | | | | At | Signature | + + + + + + | Glucose, | 157 (H)Comment: Testing | 65 - 99 mg/dL | [facility] | | | POC | performed at [facility] | | LABORATORY | | | | [address];[place] | | | | | | [address] | | | | + + + + + + + + | Specimen | + + | | + + + + + + + | Performing | Address | City/State/Zipcode | Phone Number | | Organization | | | | + + + + + | [facility] | [address] | [place] [address] | [phone] | + + + + + POC [...] | | | POC | performed at [facility] | | LABORATORY | | | | [address];[place], [place] | | | | | | [address] | | | | + + + + + + + + | Specimen | + + | | + + + + + + + | Performing | Address | City/State/Zipcode | Phone Number | | Organization | | | | + + + + + | [facility] | [address] | [place] [address] | [phone] | + + + + + POC Glucose (04/20/2019 5:04 PM PST) + + + + + + | Component | Value | Ref Range | Performed | Pathologist | | | | | At | Signature | + + + + + + | Glucose, | 199 (H)Comment: Testing | 65 - 99 mg/dL | [facility] | | | POC | performed at [facility] | | LABORATORY | | | | [address];[place] | | | | | | [address] | | | | + + + + + + + + | Specimen | + + | | + + + + + + + | Performing | Address | City/State/Zipcode | Phone Number | | Organization | | | | + + + + + | [facility] | [address] | [place] [address] | [phone] | + + + + + POC Glucose (04/20/2019 12:44 PM PST) + + + + + + | Component | Value | Ref Range | Performed | Pathologist | | | | | At | Signature | + + + + + + | Glucose, | 273 (H)Comment: Testing | 65 - 99 mg/dL | [facility] | | | POC | performed at [facility] | | LABORATORY | | | | [address];[place], [place] | | | | | | [address] | | | | + + + + + + + + | Specimen | + + | | + + + + + + + | Performing | Address | City/State/Zipcode | Phone Number | | Organization | | | | + + + + + | [facility] | [address] | [place] [address] | [phone] | + + + + + Vancomycin Level (04/20/2019 12:39 PM PST) + + + + + + | Component | Value | Ref Range | Performed | Pathologist | | | | | At | Signature | + + + + + + | Vancomycin | 18.3Comment: Testing | ug/mL | [facility] | | | Random, | performed at [facility] | | LABORATORY | | | Serum | [address];[place], [place] | | | | | | [address] | | | | + + + + + + + + | Specimen | + + | Blood | + + + + + + + | Performing | Address | City/State/Zipcode | Phone Number | | Organization | | | | + + + + + | [facility] | [address] | [place] [address] | [phone] | + + + + + POC Glucose (04/20/2019 8:58 AM PST) + + + + + + | Component | Value | Ref Range | Performed | Pathologist | | | | | At | Signature | + + + + + + | Glucose, | 244 (H)Comment: Testing | 65 - 99 mg/dL | [facility] | | | POC | performed at [facility] | | LABORATORY | | | | [address];[place] | | | | | | [address] | | | | + + + + + + + + | Specimen | + + | | + + + + + + + | Performing | Address | City/State/Zipcode | Phone Number | | Organization | | | | + + + + + | [facility] | [address] | [place] [address] | [phone] | + + + + + POC Glucose (04/20/2019 8:16 AM PST) + + + + + + | Component | Value | Ref Range | Performed | Pathologist | | | | | At | Signature | + + + + + + | Glucose, | 300 (H)Comment: Testing | 65 - 99 mg/dL | [facility] | | | POC | performed at [facility] | | LAB[facility]ATORY | | | | [address];[place] | | | | | | [address] | | | | + + + + + + + + | Specimen | + + | | + + + + + + + | Performing | Address | City/State/Zipcode | Phone Number | | Organization | | | | + + + + + | [facility] | [address] | [place] [address] | [phone] | + + + + + POC [...] | | | POC | performed at [facility] | | LABORATORY | | | | [address];[place], [place] | | | | | | [address] | | | | + + + + + + + + | Specimen | + + | | + + + + + + + | Performing | Address | City/State/Zipcode | Phone Number | | Organization | | | | + + + + + | [facility] | [address] | [place] [address] | [phone] | + + + + + POC [...] | | | POC | performed at [facility] | | LABORATORY | | | | [address];[place], [place] | | | | | | [address] | | | | + + + + + + + + | Specimen | + + | | + + + + + + + | Performing | Address | City/State/Zipcode | Phone Number | | Organization | | | | + + + + + | [facility] | [address] [facility] | [place] [address] | [phone] | + + + + + POC [...] | | | POC | performed at [facility] | | LABORATORY | | | | [address];[place], [place] | | | | | | [address] | | | | + + + + + + + + | Specimen | + + | | + + + + + + + | Performing | Address | City/State/Zipcode | Phone Number | | Organization | | | | + + + + + | [facility] | [address] | [place] [address] | [phone] | + + + + + POC Glucose (04/19/2019 8:13 AM PST) + + + + + + | Component | Value | Ref Range | Performed | Pathologist | | | | | At | Signature | + + + + + + | Glucose, | 176 (H)Comment: Testing | 65 - 99 mg/dL | [facility] | | | POC | performed at [facility] | | LABORATORY | | | | [address];[place] | | | | | | [address] | | | | + + + + + + + + | Specimen | + + | | + + + + + + + | Performing | Address | City/State/Zipcode | Phone Number | | Organization | | | | + + + + + | [facility] | [address] | [place] [address] | [phone] | + + + + + Basic [...] 8.0 (L) | 8.5 - 10.5 | [facility] | | | | | mg/dL | LABORATORY | | + + + + + + | Estimated | >60Comment: GFR <60: | >60 | [facility] | | | GFR | CHRONIC KIDNEY [...] | | | | | performed at [facility], [address] | | | | | | [facility], | | | | | | [place] [address] | | | | + + + + + + + + | Specimen | + + | Blood | + + + + + + + | Performing | Address | City/State/Zipcode | Phone Number | | Organization | | | | + + + + + | [facility] | [address] | [place] [address] | [phone] | + + + + + CBC [...] W | | | | | | [facility], | | | | | | [place] [address] | | | | | |MICRO | | | | | |NORMAL PLT MORPH | | | | | |Testing performed at [facility], [address] [facility], [place] [address] | | | | | | | | | | + + +---- + + + + + | Specimen | + + | Blood | + + + + + + + | Performing | Address | City/State/Zipcode | Phone Number | | Organization | | | | + + + + + | [facility] | [address] [facility] | [place] [address] | [phone] | + + + + + POC [...] | | | POC | performed at [facility] | | LABORATORY | | | | [address];[place], [place] | | | | | | [address] | | | | + + + + + + + + | Specimen | + + | | + + + + + + + | Performing | Address | City/State/Zipcode | Phone Number | | Organization | | | | + + + + + | [facility] | [address] | [place] [address] | [phone] | + + + + + POC Glucose (04/18/2019 9:02 PM PST) + + + + + + | Component | Value | Ref Range | Performed | Pathologist | | | | | At | Signature | + + + + + + | Glucose, | 295 (H)Comment: Testing | 65 - 99 mg/dL | [facility] | | | POC | performed at [facility] | | LABORATORY | | | | [address];[place] | | | | | | [address] | | | | + + + + + + + + | Specimen | + + | | + + + + + + + | Performing | Address | City/State/Zipcode | Phone Number | | Organization | | | | + + + + + | [facility] | [address] | [place] [address] | [phone] | + + + + + POC Glucose (04/18/2019 8:01 PM PST) + + + + + + | Component | Value | Ref Range | Performed | Pathologist | | | | | At | Signature | + + + + + + | Glucose, | 245 (H)Comment: Testing | 65 - 99 mg/dL | [facility] | | | POC | performed at [facility] | | LABORATORY | | | | [address];[place] | | | | | | [address] | | | | + + + + + + + + | Specimen | + + | | + + + + + + + | Performing | Address | City/State/Zipcode | Phone Number | | Organization | | | | + + + + + | [facility] | [address] | [place] [address] | [phone] | + + + + + POC [...] | | | POC | performed at [facility] | | LABORATORY | | | | [address];[place], [place] | | | | | | [address] | | | | + + + + + + + + | Specimen | + + | | + + + + + + + | Performing | Address | City/State/Zipcode | Phone Number | | Organization | | | | + + + + + | [facility] | [address] | [place] [address] | [phone] | + + + + + POC [...] | | | POC | performed at [facility] | | LABORATORY | | | | [address];[place], [place] | | | | | | [address] | | | | + + + + + + + + | Specimen | + + | | + + + + + + + | Performing | Address | City/State/Zipcode | Phone Number | | Organization | | | | + + + + + | [facility] | [address] [facility] | [place] [address] | [phone] | + + + + + NM [...] | | | POC | performed at [facility] | | LABORATORY | | | | [address];[place] | | | | | | [address] | | | | + + + + + + + + | Specimen | + + | | + + + + + + + | Performing | Address | City/State/Zipcode | Phone Number | | Organization | | | | + + + + + | [facility] | [address] | [place] [address] | [phone] | + + + + + Basic [...] | | | | | performed at [facility] | | | | | | [facility];[place], [place] | | | | | | [address] | | | | + + + + + + + + | Specimen | + + | Blood | + + + + + + + | Performing | Address | City/State/Zipcode | Phone Number | | Organization | | | | + + + + + | [facility] | [address] | [place] [address] | [phone] | + + + + + CBC [...] | | | Estimate | performed at [facility] | | LABORATORY | | | | [address];[place] | | | | | | [address] | | | | + + + + + + + + | Specimen | + + | Blood | + + + + + + + | Performing | Address | City/State/Zipcode | Phone Number | | Organization | | | | + + + + + | [facility] | [address] | [place] [address] | [phone] | + + + + + POC [...] | | | POC | performed at [facility] | | LABORATORY | | | | [address];[place] | | | | | | [address] | | | | + + + + + + + + | Specimen | + + | | + + + + + + + | Performing | Address | City/State/Zipcode | Phone Number | | Organization | | | | + + + + + | [facility] | [address] | [place] [address] | [phone] | + + + + + POC [...] | | | POC | performed at [facility] | | LABORATORY | | | | [address];[place], [place] | | | | | | [address] | | | | + + + + + + + + | Specimen | + + | | + + + + + + + | Performing | Address | City/State/Zipcode | Phone Number | | Organization | | | | + + + + + | [facility] | [address] | [place] [address] | [phone] | + + + + + Vancomycin, [...] | | | | | performed at [facility] | | | | | | [address];[place], [place] | | | | | | [address] | | | | + + + + + + + + | Specimen | + + | Blood | + + + + + + + | Performing | Address | City/State/Zipcode | Phone Number | | Organization | | | | + + + + + | [facility] | [address] | [place] [address] | [phone] | + + + + + POC Glucose (04/17/2019 12:05 PM PST) + + + + + + | Component | Value | Ref Range | Performed | Pathologist | | | | | At | Signature | + + + + + + | Glucose, | 200 (H)Comment: Testing | 65 - 99 mg/dL | [facility] | | | POC | performed at [facility] | | LABORATORY | | | | [address];[place] | | | | | | [address] | | | | + + + + + + + + | Specimen | + + | | + + + + + + + | Performing | Address | City/State/Zipcode | Phone Number | | Organization | | | | + + + + + | [facility] | [address] | [place] [address] | [phone] | + + + + + POC Glucose (04/17/2019 10:11 AM PST) + + + + + + | Component | Value | Ref Range | Performed | Pathologist | | | | | At | Signature | + + + + + + | Glucose, | 138 (H)Comment: Testing | 65 - 99 mg/dL | [facility] | | | POC | performed at [facility] | | LABORATORY | | | | [address];[place] | | | | | | [address] | | | | + + + + + + + + | Specimen | + + | | + + + + + + + | Performing | Address | City/State/Zipcode | Phone Number | | Organization | | | | + + + + + | [facility] | [address] | [place] [address] | [phone] | + + + + + POC [...] | | | POC | performed at [facility] | | LABORATORY | | | | [address];[place], [place] | | | | | | [address] | | | | + + + + + + + + | Specimen | + + | | + + + + + + + | Performing | Address | City/State/Zipcode | Phone Number | | Organization | | | | + + + + + | [facility] | [address] | [place] [address] | [phone] | + + + + + Basic [...] | >60Comment: GFR <60: | >60 | [facility] | | | GFR | CHRONIC KIDNEY [...] | | | | | performed at [facility], [address] | | | | | | [facility], | | | | | | [place] [address] | | | | + + + + + + + + | Specimen | + + | Blood | + + + + + + + | Performing | Address | City/State/Zipcode | Phone Number | | Organization | | | | + + + + + | [facility] | [address] | [place] [address] | [phone] | + + + + + CBC [...] [address], | | | | | | [place] [address] | | | | | |MICRO | | | | | |NORMAL PLT MORPH | | | | | |Testing performed at [facility], [address] [facility], [place] [address] | | | | | | | | | | + + +---- + + + + + | Specimen | + + | Blood | + + + + + + + | Performing | Address | City/State/Zipcode | Phone Number | | Organization | | | | + + + + + | [facility] | [address] [facility] | [place] [address] | [phone] | + + + + + POC Glucose (04/16/2019 8:57 PM PST) + + + + + + | Component | Value | Ref Range | Performed | Pathologist | | | | | At | Signature | + + + + + + | Glucose, | 96Comment: Testing | 65 - 99 mg/dL | [facility] | | | POC | performed at [facility] | | LABORATORY | | | | [address];[place], [place] | | | | | | [address] | | | | + + + + + + + + | Specimen | + + | | + + + + + + + | Performing | Address | City/State/Zipcode | Phone Number | | Organization | | | | + + + + + | [facility] | [address] | [place] [address] | [phone] | + + + + + POC [...] | | | POC | performed at [facility] | | LABORATORY | | | | [address];[place] | | | | | | [address] | | | | + + + + + + + + | Specimen | + + | | + + + + + + + | Performing | Address | City/State/Zipcode | Phone Number | | Organization | | | | + + + + + | [facility] | [address] | [place] [address] | [phone] | + + + + + POC Glucose (04/16/2019 1:15 PM PST) + + + + + + | Component | Value | Ref Range | Performed | Pathologist | | | | | At | Signature | + + + + + + | Glucose, | 106 (H)Comment: Testing | 65 - 99 mg/dL | [facility] [place] | | | POC | [place] [facility] [place] | | [place] | | | | [address];[place] | | | | | | [address] | | | | + + + + + + + + | Specimen | + + | | + + + + + + + | Performing | Address | City/State/Zipcode | Phone Number | | Organization | | | | + + + + + | [facility] | [address] | [place] [address] | [phone] | + + + + + POC [...] | | | POC | performed at [facility] [place] | | [place] | | | | [address];[place] | | | | | | [address] | | | | + + + + + + + + | Specimen | + + | | + + + + + + + | Performing | Address | City/State/Zipcode | Phone Number | | Organization | | | | + + + + + | [facility] | [address] | [place] [address] | [phone] | + + + + + CBC [...] | | | | | performed at [facility], [address] | | | | | | Loi Jaramillo, | | | | | | [place] [address] | | | | | |MICRO | | | | | |NORMAL PLT MORPH | | | | | |Testing performed at [facility], [address] [place] [address] | | | | | | | | | | + + +---- + + + + + | Specimen | + + | Blood | + + + + + + + | Performing | Address | City/State/Zipcode | Phone Number | | Organization | | | | + + + + + | [facility] | [address] [facility] | [place] [address] | [phone] | + + + + + Basic [...] | | | | | performed at [facility], [address] | | | | | | [place], | | | | | | [place] [address] | | | | + + + + + + + + | Specimen | + + | Blood | + + + + + + + | Performing | Address | City/State/Zipcode | Phone Number | | Organization | | | | + + + + + | [facility] | [address] | [place] [address] | [phone] | + + + + + POC [...] | | | POC | performed at [facility] | | LABORATORY | | | | [address];[place] | | | | | | [address] | | | | + + + + + + + + | Specimen | + + | | + + + + + + + | Performing | Address | City/State/Zipcode | Phone Number | | Organization | | | | + + + + + | [facility] | [address] | [place] [address] | [phone] | + + + + + POC Glucose (04/15/2019 4:51 PM PST) + + + + + + | Component | Value | Ref Range | Performed | Pathologist | | | | | At | Signature | + + + + + + | Glucose, | 239 (H)Comment: Testing | 65 - 99 mg/dL | [facility] | | | POC | performed at [facility] | | LABORATORY | | | | [address];[place] | | | | | | [address] | | | | + + + + + + + + | Specimen | + + | | + + + + + + + | Performing | Address | City/State/Zipcode | Phone Number | | Organization | | | | + + + + + | [facility] | [address] | [place] [address] | [phone] | + + + + + POC Glucose (04/15/2019 1:19 PM PST) + + + + + + | Component | Value | Ref Range | Performed | Pathologist | | | | | At | Signature | + + + + + + | Glucose, | 227 (H)Comment: Testing | 65 - 99 mg/dL | [facility] | | | POC | performed at [facility] | | LABORATORY | | | | [address];[place] | | | | | | [address] | | | | + + + + + + + + | Specimen | + + | | + + + + + + + | Performing | Address | City/State/Zipcode | Phone Number | | Organization | | | | + + + + + | [facility] | [address] | [place] [address] | [phone] | + + + + + Type [...] + + + | BB BAND | [id number] | | [facility] | | | | | | LABORATORY | | + + + + + + | UNIT # | [id number] | | [facility] | | | | [...] + + + | UNIT # | [id number] | | [facility] | | | | [...] + + + | UNIT # | [id number] | | [facility] | | | | [...] | | | RESULT | performed at [facility] | | LABORATORY | | | | [address];[place], [place] | | | | | | [address] | | | | + + + + + + + + | Specimen | + + | Blood | + + + + + + + | Performing | Address | City/State/Zipcode | Phone Number | | Organization | | | | + + + + + | [facility] | [address] | [place] [address] | [phone] | + + + + + Red [...] | ORDER RECEIVED IN BLOOD | | [facility] | | | COMMENT | BANK. | | LABORATORY | | + + + + + + | BLOOD BANK | Testing performed at | | [facility] | | | COMMENT | [facility] | | LABORATORY | | | | [place] [address] | | | | + + + + + + + + | Specimen | + + | | + + + + + + + | Performing | Address | City/State/Zipcode | Phone Number | | Organization | | | | + + + + + | [facility] | [address] | [place] [address] | [phone] | + + + + + POC Glucose (04/15/2019 9:11 AM PST) + + + + + + | Component | Value | Ref Range | Performed | Pathologist | | | | | At | Signature | + + + + + + | Glucose, | 165 (H)Comment: Testing | 65 - 99 mg/dL | [facility] | | | POC | performed at [facility] | | LABORATORY | | | | [address];[place] | | | | | | [address] | | | | + + + + + + + + | Specimen | + + | | + + + + + + + | Performing | Address | City/State/Zipcode | Phone Number | | Organization | | | | + + + + + | [facility] | [address] | [place] [address] | [phone] | + + + + + Vancomycin, [...] | | | | | performed at [facility] | | | | | | [address];[place], [place] | | | | | | [address] | | | | + + + + + + + + | Specimen | + + | Blood | + + + + + + + | Performing | Address | City/State/Zipcode | Phone Number | | Organization | | | | + + + + + | [facility] | [address] | [place] [address] | [phone] | + + + + + CBC [...] | | | Estimate | performed at [facility] | | LABORATORY | | | | [address];[place] | | | | | | [address] | | | | + + + + + + + + | Specimen | + + | Blood | + + + + + + + | Performing | Address | City/State/Zipcode | Phone Number | | Organization | | | | + + + + + | [facility] | [address] | [place] [address] | [phone] | + + + + + Basic [...] | | | | | performed at [facility] | | | | | | [facility], [place] | | | | | | [address] | | | | + + + + + + + + | Specimen | + + | Blood | + + + + + + + | Performing | Address | City/State/Zipcode | Phone Number | | Organization | | | | + + + + + | [facility] | [address] | [place] [address] | [phone] | + + + + + POC Glucose (04/14/2019 8:15 PM PST) + + + + + + | Component | Value | Ref Range | Performed | Pathologist | | | | | At | Signature | + + + + + + | Glucose, | 159 (H)Comment: Testing | 65 - 99 mg/dL | [facility] | | | POC | performed at [facility] | | LABORATORY | | | | [address];[place] | | | | | | [address] | | | | + + + + + + + + | Specimen | + + | | + + + + + + + | Performing | Address | City/State/Zipcode | Phone Number | | Organization | | | | + + + + + | [facility] | [address] | [place] [address] | [phone] | + + + + + POC [...] | | | POC | performed at [facility] | | LABORATORY | | | | [address];[place], [place] | | | | | | [address] | | | | + + + + + + + + | Specimen | + + | | + + + + + + + | Performing | Address | City/State/Zipcode | Phone Number | | Organization | | | | + + + + + | [facility] | [address] | [place] [address] | [phone] | + + + + + POC Glucose (04/14/2019 11:43 AM PST) + + + + + + | Component | Value | Ref Range | Performed | Pathologist | | | | | At | Signature | + + + + + + | Glucose, | 153 (H)Comment: Testing | 65 - 99 mg/dL | [facility] | | | POC | performed at [facility] | | LABORATORY | | | | [address];[place] | | | | | | [address] | | | | + + + + + + + + | Specimen | + + | | + + + + + + + | Performing | Address | City/State/Zipcode | Phone Number | | Organization | | | | + + + + + | [facility] | [address] | [place] [address] | [phone] | + + + + + ECHO [...] | | | POC | performed at [facility];[address] | | LABORATORY | | | | [address];[place] | | | | | | [address] | | | | + + + + + + + + | Specimen | + + | | + + + + + + + | Performing | Address | City/State/Zipcode | Phone Number | | Organization | | | | + + + + + | [facility] | [address] | [place] [address] | [phone] | + + + + + B [...] | | LABORATORY | | | | [facility];[place] [address] | | | | + + + + + + + + | Specimen | + + | | + + + + + + + | Performing | Address | City/State/Zipcode | Phone Number | | Organization | | | | + + + + + | [facility] | [address] | [place] [address] | [phone] | + + + + + CBC [...] | | | Estimate | performed at [facility];[address] | | LABORATORY | | | | [address];[place] | | | | | | [address] | | | | + + + + + + + + | Specimen | + + | | + + + + + + + | Performing | Address | City/State/Zipcode | Phone Number | | Organization | | | | + + + + + | [facility] | [address] | [place] [address] | [phone] | + + + + + Troponin [...] at | | | | | | [facility] [facility] | | | | | | [facility];[place] [address] | | | | + + + + + + + + | Specimen | + + | Blood | + + + + + + + | Performing | Address | City/State/Zipcode | Phone Number | | Organization | | | | + + + + + | [facility] | [address] | [place] [address] | [phone] | + + + + + Basic [...] | >60Comment: GFR <60: | >60 | [facility] | | | GFR | CHRONIC KIDNEY [...] | | | | | | [facility] traceable | | | | | | equation.Testing | | | | | | performed at [facility] | | | | | | [facility];[place], [place] | | | | | | [address] | | | | + + + + + + + + | Specimen | + + | Blood | + + + + + + + | Performing | Address | City/State/Zipcode | Phone Number | | Organization | | | | + + + + + | [facility] | [address] | [place] [address] | [phone] | + + + + + Vancomycin Level (04/14/2019 4:53 AM PST) + + + + + + | Component | Value | Ref Range | Performed | Pathologist | | | | | At | Signature | + + + + + + | Vancomycin | 20.6Comment: Testing | ug/mL | [facility] | | | Random, | performed at [facility];[address] | | LABORATORY | | | Serum | [address];[place] | | | | | | [address] | | | | + + + + + + + + | Specimen | + + | Blood | + + + + + + + | Performing | Address | City/State/Zipcode | Phone Number | | Organization | | | | + + + + + | [facility] | [address] | [place] [address] | [phone] | + + + + + POC Glucose (04/14/2019 1:46 AM PST) + + + + + + | Component | Value | Ref Range | Performed | Pathologist | | | | | At | Signature | + + + + + + | Glucose, | 166 (H)Comment: Testing | 65 - 99 mg/dL | [facility] | | | POC | performed at [facility];[address] | | LABORATORY | | | | [address];[place] | | | | | | [address] | | | | + + + + + + + + | Specimen | + + | | + + + + + + + | Performing | Address | City/State/Zipcode | Phone Number | | Organization | | | | + + + + + | [facility] | [address] | [place] [address] | [phone] | + + + + + Troponin I (04/14/2019 1:19 AM PST) + + + + + + | Component | Value | Ref Range | Performed | Pathologist | | | | | At | Signature | + + + + + + | Troponin I | 0.015Comment: 0.04 | 0.00 - 0.04 | [facility] | | | | ng/mL or less [...] at | | | | | | [facility];[address];[place] [address] | | | | + + + + + + + + | Specimen | + + | Blood | + + + + + + + | Performing | Address | City/State/Zipcode | Phone Number | | Organization | | | | + + + + + | [facility] | [address] | [place] [address] | [phone] | + + + + + ECG [...] | | | POC | performed at [facility];[address] | | LABORATORY | | | | [address];[place] | | | | | | [address] | | | | + + + + + + + + | Specimen | + + | | + + + + + + + | Performing | Address | City/State/Zipcode | Phone Number | | Organization | | | | + + + + + | [facility] | [address] | [place] [address] | [phone] | + + + + + POC Glucose (04/13/2019 4:19 PM PST) + + + + + + | Component | Value | Ref Range | Performed | Pathologist | | | | | At | Signature | + + + + + + | Glucose, | 109 (H)Comment: Testing | 65 - 99 mg/dL | [facility] | | | POC | performed at [facility];[address] | | LABORATORY | | | | [address];[place] | | | | | | [address] | | | | + + + + + + + + | Specimen | + + | | + + + + + + + | Performing | Address | City/State/Zipcode | Phone Number | | Organization | | | | + + + + + | [facility] | [address] | [place] [address] | [phone] | + + + + + XR [...] catheterization with right leg runoff4. Right SFA VERIFICATION REP | | | crossing and atherectomy using Bard 14 S crossing catheter SURGEON: | | | Simba Cheng MD WET PROCESS MILLER: None ANESTHESIA: Moderate sedation and local | [...] | | identified and brought to the Motocross [facility]acer. The patient was placed supine | | [...] | | | POC | performed at [facility];[address] | | LABORATORY | | | | [address];[place], [place] | | | | | | [address] | | | | + + + + + + + + | Specimen | + + | | + + + + + + + | Performing | Address | City/State/Zipcode | Phone Number | | Organization | | | | + + + + + | [facility] | [address] | [place] [address] | [phone] | + + + + + POC [...] | | | POC | performed at [facility];[address] | | LABORATORY | | | | [address];[place], [place] | | | | | | [address] | | | | + + + + + + + + | Specimen | + + | | + + + + + + + | Performing | Address | City/State/Zipcode | Phone Number | | Organization | | | | + + + + + | [facility] | [address] | [place] [address] | [phone] | + + + + + Basic [...] | | | | | performed at [facility], [address] | | | | | | [facility], | | | | | | [place] [address] | | | | + + + + + + + + | Specimen | + + | Blood | + + + + + + + | Performing | Address | City/State/Zipcode | Phone Number | | Organization | | | | + + + + + | [facility] | [address] | [place] [address] | [phone] | + + + + + CBC [...] | | | | | performed at [facility], [facility] [address] | | | | | | [facility], | | | | | | [place] [address] | | | | | |MICRO | | | | | |NORMAL PLT MORPH | | | | | |Testing performed at [facility], [facility] [place] [address] | | | | | | | | | | + + +---- + + + + + | Specimen | + + | Blood | + + + + + + + | Performing | Address | City/State/Zipcode | Phone Number | | Organization | | | | + + + + + | [facility] | [address] | [place] [address] | [phone] | + + + + + POC Glucose (04/13/2019 3:30 AM PST) + + + + + + | Component | Value | Ref Range | Performed | Pathologist | | | | | At | Signature | + + + + + + | Glucose, | 147 (H)Comment: Testing | 65 - 99 mg/dL | [facility] | | | POC | performed at [facility];[address] | | LABORATORY | | | | [address];[place], [place] | | | | | | [address] | | | | + + + + + + + + | Specimen | + + | | + + + + + + + | Performing | Address | City/State/Zipcode | Phone Number | | Organization | | | | + + + + + | [facility] | [address] | [place] [address] | [phone] | + + + + + POC [...] | | | POC | performed at [facility];[address] | | LABORATORY | | | | [address];[place], [place] | | | | | | [address] | | | | + + + + + + + + | Specimen | + + | | + + + + + + + | Performing | Address | City/State/Zipcode | Phone Number | | Organization | | | | + + + + + | [facility] | [address] | [place] [address] | [phone] | + + + + + POC Glucose (04/12/2019 4:28 PM PST) + + + + + + | Component | Value | Ref Range | Performed | Pathologist | | | | | At | Signature | + + + + + + | Glucose, | 211 (H)Comment: Testing | 65 - 99 mg/dL | [facility] | | | POC | performed at [facility];[address] | | LABORATORY | | | | [address];[place], [place] | | | | | | [address] | | | | + + + + + + + + | Specimen | + + | | + + + + + + + | Performing | Address | City/State/Zipcode | Phone Number | | Organization | | | | + + + + + | [facility] | [address] | [place] [address] | [phone] | + + + + + POC Glucose (04/12/2019 11:53 AM PST) + + + + + + | Component | Value | Ref Range | Performed | Pathologist | | | | | At | Signature | + + + + + + | Glucose, | 162 (H)Comment: Testing | 65 - 99 mg/dL | [facility] | | | POC | performed at [facility];[address] | | LABORATORY | | | | [address];[place] | | | | | | [address] | | | | + + + + + + + + | Specimen | + + | | + + + + + + + | Performing | Address | City/State/Zipcode | Phone Number | | Organization | | | | + + + + + | [facility] | [address] | [place] [address] | [phone] | + + + + + POC [...] | | | POC | performed at [facility];[address] | | LABORATORY | | | | [address];[place], [place] | | | | | | [address] | | | | + + + + + + + + | Specimen | + + | | + + + + + + + | Performing | Address | City/State/Zipcode | Phone Number | | Organization | | | | + + + + + | [facility] | [address] | [place] [address] | [phone] | + + + + + Basic [...] 8.2 (L) | 8.5 - 10.5 | [facility] | | | | | mg/dL | LABORATORY | | + + + + + + | Estimated | >60Comment: GFR <60: | >60 | [facility] | | | GFR | CHRONIC KIDNEY [...] | | | | | performed at [facility], [address] | | | | | | [facility], | | | | | | [place] [address] | | | | + + + + + + + + | Specimen | + + | Blood | + + + + + + + | Performing | Address | City/State/Zipcode | Phone Number | | Organization | | | | + + + + + | [facility] | [address] | [place] [address] | [phone] | + + + + + CBC [...] | | | | | performed at [facility], [address] | | | | | | [address] [place], | | | | | | [place] [address] | | | | | |MICRO | | | | | |NORMAL PLT MORPH | | | | | |Testing performed at [facility], [address] [facility], [place] [address] | | | | | | | | | | + + +---- + + + + + | Specimen | + + | Blood | + + + + + + + | Performing | Address | City/State/Zipcode | Phone Number | | Organization | | | | + + + + + | [facility] | [address] [facility] | [place] [address] | [phone] | + + + + + POC [...] | | | POC | performed at [facility];[address] | | LABORATORY | | | | [address];[place], [place] | | | | | | [address] | | | | + + + + + + + + | Specimen | + + | | + + + + + + + | Performing | Address | City/State/Zipcode | Phone Number | | Organization | | | | + + + + + | [facility] | [address] | [place] [address] | [phone] | + + + + + POC [...] | | | POC | performed at [facility];[address] | | LABORATORY | | | | [address];[place] | | | | | | [address] | | | | + + + + + + + + | Specimen | + + | | + + + + + + + | Performing | Address | City/State/Zipcode | Phone Number | | Organization | | | | + + + + + | [facility] | [address] | [place] [address] | [phone] | + + + + + POC Glucose (04/11/2019 3:22 PM PST) + + + + + + | Component | Value | Ref Range | Performed | Pathologist | | | | | At | Signature | + + + + + + | Glucose, | 168 (H)Comment: Testing | 65 - 99 mg/dL | [facility] | | | POC | performed at [facility];[address] | | LABORATORY | | | | [address];[place], [place] | | | | | | [address] | | | | + + + + + + + + | Specimen | + + | | + + + + + + + | Performing | Address | City/State/Zipcode | Phone Number | | Organization | | | | + + + + + | [facility] | [address] | [place] [address] | [phone] | + + + + + IR [...] x 150 mm | | | angioplasty [id number]. Left SFA stenting using 7 x 120 mm | | | self-expanding stent SURGEON: Simba Cheng MD WET PROCESS MILLER: None ANESTHESIA: | | | Moderate sedation [...] | | identified and brought to the Motocross Racer. The patient was placed supine | | [...] using a | | | Glidewire and [place] catheter. A 0.009 wire was then passed [...] crossed using a | | |Glidewire and [place] catheter. A 0.009 wire was then passed [...] | | | POC | performed at [facility];[address] | | LABORATORY | | | | [address];[place], [place] | | | | | | [address] | | | | + + + + + + + + | Specimen | + + | | + + + + + + + | Performing | Address | City/State/Zipcode | Phone Number | | Organization | | | | + + + + + | [facility] | [address] | [place] [address] | [phone] | + + + + + B Type Natriuretic Peptide (04/11/2019 5:48 AM PST) + + + + + + | Component | Value | Ref Range | Performed | Pathologist | | | | | At | Signature | + + + + + + | BNP | 220.45 (H)Comment: | 0 - 100 pg/mL | [facility] | | | | Testing performed at | | LABORATORY | | | | [facility] [place] | | | | | | [address];[place] [address] | | | | + + + + + + + + | Specimen | + + | Blood | + + + + + + + | Performing | Address | City/State/Zipcode | Phone Number | | Organization | | | | + + + + + | [facility] | [address] | [place] [address] | [phone] | + + + + + Basic [...] | | | | | performed at [facility], [address] | | | | | [facility], | | | | | | [place] [address] | | | | + + + + + + + + | Specimen | + + | Blood | + + + + + + + | Performing | Address | City/State/Zipcode | Phone Number | | Organization | | | | + + + + + | [facility] | [address] | [place] [address] | [phone] | + + + + + CBC [...] | | | | | | at [facility], [address] | | | | | | [facility], | | | | | | [place] [address] | | | | | |Testing performed at [facility], [address] [place] [address] | | | | | | | | | | + + +---- + + + + + | Specimen | + + | Blood | + + + + + + + | Performing | Address | City/State/Zipcode | Phone Number | | Organization | | | | + + + + + | [facility] | [address] | [place] [address] | [phone] | + + + + + POC [...] | | | POC | performed at [facility] [place] | [address] | | | | [address];[place] | | | | | | [address] | | | | + + + + + + + + | Specimen | + + | | + + + + + + + | Performing | Address | City/State/Zipcode | Phone Number | | Organization | | | | + + + + + | [facility] | [address] | [place] [address] | [phone] | + + + + + POC Glucose (04/10/2019 2:33 PM PST) + + + + + + | Component | Value | Ref Range | Performed | Pathologist | | | | | At | Signature | + + + + + + | Glucose, | 176 (H)Comment: Testing | 65 - 99 mg/dL | [facility] | | | POC | performed at [facility] | | LABORATORY | | | | [address];[place] | | | | | | [address] | | | | + + + + + + + + | Specimen | + + | | + + + + + + + | Performing | Address | City/State/Zipcode | Phone Number | | Organization | | | | + + + + + | [facility] | [address] | [place] [address] | [phone] | + + + + + [place] [...] | | | POC | performed at [facility] | | LABORATORY | | | | [address]illo;[place], [place] | | | | | | [address] | | | | + + + + + + + + | Specimen | + + | | + + + + + + + | Performing | Address | City/State/Zipcode | Phone Number | | Organization | | | | + + + + + | [facility] | [address] | [place] [address] | [phone] | + + + + + CBC [...] Jaramillo, | | | | | | [place] [address] | | | | + + + + + + + + | Specimen | + + | Blood | + + + + + + + | Performing | Address | City/State/Zipcode | Phone Number | | Organization | | | | + + + + + | [facility] | [address] [facility] | [place] [address] | [phone] | + + + + + POC [...] | | | POC | performed at [facility] | | LABORATORY | | | | [address]illo;[place], [place] | | | | | | [address] | | | | + + + + + + + + | Specimen | + + | | + + + + + + + | Performing | Address | City/State/Zipcode | Phone Number | | Organization | | | | + + + + + | [facility] | [address] | [place] [address] | [phone] | + + + + + POC Glucose (04/09/2019 5:06 PM PST) + + + + + + | Component | Value | Ref Range | Performed | Pathologist | | | | | At | Signature | + + + + + + | Glucose, | 169 (H)Comment: Testing | 65 - 99 mg/dL | [facility] | | | POC | performed at [facility] | | LABORATORY | | | | [address];[place] | | | | | | [address] | | | | + + + + + + + + | Specimen | + + | | + + + + + + + | Performing | Address | City/State/Zipcode | Phone Number | | Organization | | | | + + + + + | [facility] | [address] | [place] [address] | [phone] | + + + + + POC [...] | | | POC | performed at [facility] | | LABORATORY | | | | [address]illo;[place] | | | | | | [address] | | | | + + + + + + + + | Specimen | + + | | + + + + + + + | Performing | Address | City/State/Zipcode | Phone Number | | Organization | | | | + + + + + | [facility] | [address] | [place] [address] | [phone] | + + + + + XR [...] | 1+ (A)Comment: Testing | NONE | [facility] | | | Urine | performed at [facility], [address] | | LABORATORY | | | | [place] [place], | | | | | | [place] [address] | | | | + + + + + + + + | Specimen | + + | | + + + + + + + | Performing | Address | City/State/Zipcode | Phone Number | | Organization | | | | + + + + + | [facility] | [address] | [place] [address] | [phone] | + + + + + Urinalysis, [...] - 1.030 | [facility] | | | [place], | | | LABORATORY | | | [...] | + + + + + | [facility] | [address] | [place] [address] | [phone] | + + + + + Sedimentation Rate (04/09/2019 6:16 AM PST) + + + + + + | Component | Value | Ref Range | Performed | Pathologist | | | | | At | Signature | + + + + + + | ESR | 91 (H)Comment: Testing | 0 - 20 mm/Hr | [facility] | | | | performed at [facility], [address] | | LABORATORY | | | | [address], | | | | | | [place] [address] | | | | + + + + + + + + | Specimen | + + | Blood | + + + + + + + | Performing | Address | City/State/Zipcode | Phone Number | | Organization | | | | + + + + + | [facility] | [address] | [place] [address] | [phone] | + + + + + CBC [...] [facility] | | | | performed at [facility], [address] | | LABORATORY | | | | [place], | | | | | | [place] [address] | | | | + + + + + + + + | Specimen | + + | Blood | + + + + + + + | Performing | Address | City/State/Zipcode | Phone Number | | Organization | | | | + + + + + | [facility] | [address] | [place] [address] | [phone] | + + + + + Comprehensive [...] | | | | | performed at [facility], [address] | | | | | | [address] [facility], | | | | | | [place] [address] | | | | + + + + + + + + | Specimen | + + | Blood | + + + + + + + | Performing | Address | City/State/Zipcode | Phone Number | | Organization | | | | + + + + + | [facility] | [address] | [place] [address] | [phone] | + + + + + POC [...] | | | POC | performed at [facility];[address] | | LABORATORY | | | | [address];[place], [place] | | | | | | [address] | | | | + + + + + + + + | Specimen | + + | | + + + + + + + | Performing | Address | City/State/Zipcode | Phone Number | | Organization | | | | + + + + + | [facility] | [address] | [place] [address] | [phone] | + + + + + Fecal Hemoglobin (04/08/2019 7:27 PM PST) + + + + + + | Component | Value | Ref Range | Performed | Pathologist | | | | | At | Signature | + + + + + + | FECAL | NEGATIVEComment: Testing | NEG | [facility] | | | OCCULT BLD | performed at [facility];[address] | | LABORATORY | | | | [address];[place] | | | | | | [address] | | | | + + + + + + + + | Specimen | + + | Stool - Stool | | specimen (specimen) | + + + + + + + | Performing | Address | City/State/Zipcode | Phone Number | | Organization | | | | + + + + + | [facility] | [address] | [place] [address] | [phone] | + + + + + POC Glucose (04/08/2019 6:34 PM PST) + + + + + + | Component | Value | Ref Range | Performed | Pathologist | | | | | At | Signature | + + + + + + | Glucose, | 179 (H)Comment: Testing | 65 - 99 mg/dL | [facility] | | | POC | performed at [facility];[address] | | LABORATORY | | | | [address];[place] | | | | | | [address] | | | | + + + + + + + + | Specimen | + + | | + + + + + + + | Performing | Address | City/State/Zipcode | Phone Number | | Organization | | | | + + + + + | [facility] | [address] | [place] [address] | [phone] | + + + + + XR [...] Testing | 65 - 99 mg/dL | [facility] | | | POC | performed at [facility];[address] | | LABORATORY | | | | [address];[place] | | | | | | [address] | | | | + + + + + + + + | Specimen | + + | | + + + + + + + | Performing | Address | City/State/Zipcode | Phone Number | | Organization | | | | + + + + + | [facility] | [address] | [place] [address] | [phone] | + + + + + XR [...] | | | POC | performed at [facility] | | LABORATORY | | | | [address];[place], [place] | | | | | | [address] | | | | + + + + + + + + | Specimen | + + | | + + + + + + + | Performing | Address | City/State/Zipcode | Phone Number | | Organization | | | | + + + + + | [facility] | [address] | [place] [address] | [phone] | + + + + + B [...] | | LABORATORY | | | | [facility] | | | | | | [place] [address] | | | | + + + + + + + + | Specimen | + + | Blood | + + + + + + + | Performing | Address | City/State/Zipcode | Phone Number | | Organization | | | | + + + + + | [facility] | [address] | [place] [address] | [phone] | + + + + + CBC [...] [facility] | | | | performed at [facility], [address] | | LABORATORY | | | | [facility], | | | | | | [place] [address] | | | | + + + + + + + + | Specimen | + + | Blood | + + + + + + + | Performing | Address | City/State/Zipcode | Phone Number | | Organization | | | | + + + + + | [facility] | [address] | [place] [address] | [phone] | + + + + + Comprehensive [...] | | | | | | [facility] traceable | | | | | | equation.Testing | | | | | | performed at [facility], [address] | | | | | | [facility], | | | | | | [place] [address] | | | | + + + + + + + + | Specimen | + + | Blood | + + + + + + + | Performing | Address | City/State/Zipcode | Phone Number | | Organization | | | | + + + + + | [facility] | [address] | [place] [address] | [phone] | + + + + + POC [...] | | | POC | performed at [facility];[address] | | LABORATORY | | | | [address];[place], [place] | | | | | | [address] | | | | + + + + + + + + | Specimen | + + | | + + + + + + + | Performing | Address | City/State/Zipcode | Phone Number | | Organization | | | | + + + + + | [facility] | [address] | [place] [address] | [phone] | + + + + + POC [...] | | | POC | performed at [facility];[address] | | LABORATORY | | | | [address];[place] | | | | | | [address] | | | | + + + + + + + + | Specimen | + + | | + + + + + + + | Performing | Address | City/State/Zipcode | Phone Number | | Organization | | | | + + + + + | [facility] | [address] [facility] | [place] [address] | [phone] | + + + + + POC [...] | | | POC | performed at [facility];[address] | | LABORATORY | | | | [address];[place], [place] | | | | | | [address] | | | | + + + + + + + + | Specimen | + + | | + + + + + + + | Performing | Address | City/State/Zipcode | Phone Number | | Organization | | | | + + + + + | [facility] | [address] | [place] [address] | [phone] | + + + + + XR [...] + + | Performing | Address | City/State/[facility] | Phone Number | | [...] | | | POC | performed at [facility];[address] | | LABORATORY | | | | [address];[place], [place] | | | | | | [address] | | | | + + + + + + + + | Specimen | + + | | + + + + + + + | Performing | Address | City/State/Zipcode | Phone Number | | Organization | | | | + + + + + | [facility] | [address] | [place] [address] | [phone] | + + + + + Magnesium [...] | | | | | [place] [address] | | | | + + + + + + + + | Specimen | + + | Blood | + + + + + + + | Performing | Address | City/State/Zipcode | Phone Number | | Organization | | | | + + + + + | [facility] | [address] | [place] [address] | [phone] | + + + + + CBC [...] [facility] | | | | performed at [facility];[address] | | LABORATORY | | | | [address];[place] | | | | | | [address] | | | | + + + + + + + + | Specimen | + + | Blood | + + + + + + + | Performing | Address | City/State/Zipcode | Phone Number | | Organization | | | | + + + + + | [facility] | [address] | [place] [address] | [phone] | + + + + + Comprehensive [...] [place], | | | | | | [place] [address] | | | | + + + + + + + + | Specimen | + + | Blood | + + + + + + + | Performing | Address | City/State/Zipcode | Phone Number | | Organization | | | | + + + + + | [facility] | [address] | [place] [address] | [phone] | + + + + + Iron, Total (04/07/2019 5:02 AM PST) + + + + + + | Component | Value | Ref Range | Performed | Pathologist | | | | | At | Signature | + + + + + + | Iron | 23 (L)Comment: Testing | 45 - 190 ug/dL | [facility] | | | | performed at [facility], [address] | | LABORATORY | | | | [address], | | | | | | [place] [address] | | | | + + + + + + + + | Specimen | + + | Blood | + + + + + + + | Performing | Address | City/State/Zipcode | Phone Number | | Organization | | | | + + + + + | [facility] | [address] | [place] [address] | [phone] | + + + + + POC Glucose (04/06/2019 8:54 PM PST) + + + + + + | Component | Value | Ref Range | Performed | Pathologist | | | | | At | Signature | + + + + + + | Glucose, | 216 (H)Comment: Testing | 65 - 99 mg/dL | [facility] | | | POC | performed at [facility];[address] | | LABORATORY | | | | [address];[place] | | | | | | [address] | | | | + + + + + + + + | Specimen | + + | | + + + + + + + | Performing | Address | City/State/Zipcode | Phone Number | | Organization | | | | + + + + + | [facility] | [address] | [place] [address] | [phone] | + + + + + POC Glucose (04/06/2019 4:29 PM PST) + + + + + + | Component | Value | Ref Range | Performed | Pathologist | | | | | At | Signature | + + + + + + | Glucose, | 173 (H)Comment: Testing | 65 - 99 mg/dL | [facility] | | | POC | performed at [facility];[address] | | LABORATORY | | | | [address];[place], [place] | | | | | | [address] | | | | + + + + + + + + | Specimen | + + | | + + + + + + + | Performing | Address | City/State/Zipcode | Phone Number | | Organization | | | | + + + + + | [facility] | [address] | [place] [address] | [phone] | + + + + + Culture, [...] LABORATORY | | | | Blvd;[place] [address] | | | | + + + + + + | RESULT | 1+NORMAL SKIN CELSA | | [facility] | | | | ISOLATED | | LABORATORY | | | | | | | | + + + + + + | RESULT | NO FURTHER WORKUP | | [facility] | | | | | | LABORATORY | | + + + + + + | RESULT | Testing performed at | | [facility] | | | | [facility], [address] | | LABORATORY | | | | [place] | | | | | | [id number]: Testing | | | | | | performed at [facility], [address] | | | | | | [address] [place] | | | | | | [address] | | | | + + + + + + + + | Specimen | + + | Body Fluid - Entire | | heel (body | | structure) | + + + + + + + | Performing | Address | City/State/Zipcode | Phone Number | | Organization | | | | + + + + + | [facility] | [address] | [place] [address] | [phone] | + + + + + Culture, [...] | | LABORATORY | | | | Blvd;[place] [address] | | | | + + + [...] Comment: Testing | | | performed at [facility], | | | [address], | | | [place] [address] | +---+ + + + + + + | Performing | Address | City/State/Zipcode | Phone Number | | Organization | | | | + + + + + | [facility] | [address] | [place] [address] | [phone] | + + + + + Ferritin (04/06/2019 2:30 PM PST) + + + + + + | Component | Value | Ref Range | Performed | Pathologist | | | | | At | Signature | + + + + + + | Ferritin | 62Comment: Testing | 11 - 450 ng/mL | [facility] | | | | performed at [facility], [address] | | LABORATORY | | | | [address], | | | | | | [place] [address] | | | | + + + + + + + + | Specimen | + + | Blood | + + + + + + + | Performing | Address | City/State/Zipcode | Phone Number | | Organization | | | | + + + + + | [facility] | [address] | [place] [address] | [phone] | + + + + + Vitamin [...] [facility] | | | | performed at [facility], [address] | | LABORATORY | | | | [address], | | | | | | [place] [address] | | | | + + + + + + + + | Specimen | + + | Blood | + + + + + + + | Performing | Address | City/State/Zipcode | Phone Number | | Organization | | | | + + + + + | [facility] | [address] | [place] [address] | [phone] | + + + + + Troponin I (04/06/2019 2:30 PM PST) + + + + + + | Component | Value | Ref Range | Performed | Pathologist | | | | | At | Signature | + + + + + + | Troponin I | 0.161 (H)Comment: 0.04 | 0.00 - 0.04 | [facility] | | | | ng/mL or less [...] at | | | | | | [facility];[address] | | | | | | [place] [address] | | | | + + + + + + + + | Specimen | + + | Blood | + + + + + + + | Performing | Address | City/State/Zipcode | Phone Number | | Organization | | | | + + + + + | [facility] | [address] | [place] [address] | [phone] | + + + + + POC [...] | | | POC | performed at [facility];[address] | | LABORATORY | | | | [address];[place] | | | | | | [address] | | | | + + + + + + + + | Specimen | + + | | + + + + + + + | Performing | Address | City/State/Zipcode | Phone Number | | Organization | | | | + + + + + | [facility] | [address] | [place] [address] | [phone] | + + + + + VAS [...] Testing | 65 - 99 mg/dL | [facility] | | | POC | performed at [facility];[address] | | LABORATORY | | | | [address];[place] | | | | | | [address] | | | | + + + + + + + + | Specimen | + + | | + + + + + + + | Performing | Address | City/State/Zipcode | Phone Number | | Organization | | | | + + + + + | [facility] | [address] | [place] [address] | [phone] | + + + + + Troponin I (04/06/2019 8:31 AM PST) + + + + + + | Component | Value | Ref Range | Performed | Pathologist | | | | | At | Signature | + + + + + + | Troponin I | 0.19 (H)Comment: 0.04 | 0.00 - 0.04 | [facility] | | | | ng/mL or less [...] at | | | | | | [facility];[address] [facility] | | | | | | [facility];[place] [address] | | | | + + + + + + + + | Specimen | + + | Blood | + + + + + + + | Performing | Address | City/State/Zipcode | Phone Number | | Organization | | | | + + + + + | [facility] | [address] | [place] [address] | [phone] | + + + + + XR [...] LABORATORY | | | | Blvd;[place] [address] | | | | + + + + + + | RESULT | NO GROWTH 6 DAYS | | [facility] | | | | | | LABORATORY | | + + + + + + | RESULT | Testing performed at | | [facility] | | | | [facility], [address] [facility] | | LABORATORY | | | | [place], [place], [place] | | | | | | [id number]: Testing | | | | | | performed at [facility], [address] | | | | | | [facility], [place], [place] | | | | | | [address] | | | | + + + + + + + + | Specimen | + + | Blood - Peripheral | | blood specimen | | (specimen) | + + + + + + + | Performing | Address | City/State/Zipcode | Phone Number | | Organization | | | | + + + + + | [facility] | [address] | [place] [address] | [phone] | + + + + + Culture, [...] LABORATORY | | | | Blvd;[place] [address] | | | | + + + + + + | RESULT | NO GROWTH 6 DAYS | | [facility] | | | | | | LABORATORY | | + + + + + + | RESULT | Testing performed at | | [facility] | | | | [facility], [address] | | LABORATORY | | | | [place], [place] | | | | | | [id number]: Testing | | | | | | performed at [facility], [address] | | | | | | [address] [place], [place] | | | | | | [address] | | | | + + + + + + + + | Specimen | + + | Blood - Peripheral | | blood specimen | | (specimen) | + + + + + + + | Performing | Address | City/State/Zipcode | Phone Number | | Organization | | | | + + + + + | [facility] | [address] | [place] [address] | [phone] | + + + + + B [...] | | LABORATORY | | | | [facility];[address] | | | | | | [address];[place] [address] | | | | + + + + + + + + | Specimen | + + | | + + + + + + + | Performing | Address | City/State/Zipcode | Phone Number | | Organization | | | | + + + + + | [facility] | [address] | [place] [address] | [phone] | + + + + + Lipid [...] | | | Calculated | performed at [facility], [address] | | LABORATORY | | | | [address], | | | | | | [place] [address] | | | | + + + + + + + + | Specimen | + + | Blood | + + + + + + + | Performing | Address | City/State/Zipcode | Phone Number | | Organization | | | | + + + + + | [facility] | [address] | [place] [address] | [phone] | + + + + + Hemoglobin A1C (04/06/2019 2:48 AM PST) + + + + + + | Component | Value | Ref Range | Performed | Pathologist | | | | | At | Signature | + + + + + + | Hemoglobin | 7.8 (H)Comment: HbA1c | 4.0 - 6.0 % | [facility] | | | A1c | method is [...] | 177 (H)Comment: | <154 mg/dL | [facility] [place] | | | Average | Estimated Average | | LABORATORY | | | Glucose | Glucose calculated from | | | | | | hemoglobin A1c by use of | | | | | | the ADArecommended | | | | | | formula.Testing | | | | | | performed at [facility], [address] | | | | | [address], | | | | | | [place] [address] | | | | + + + + + + + + | Specimen | + + | Blood | + + + + + + + | Performing | Address | City/State/Zipcode | Phone Number | | Organization | | | | + + + + + | [facility] | [address] | [place] [address] | [phone] | + + + + + Magnesium (04/06/2019 2:48 AM PST) + + + + + + | Component | Value | Ref Range | Performed | Pathologist | | | | | At | Signature | + + + + + + | Magnesium | 1.4 (L)Comment: Testing | 1.7 - 2.4 mg/dL | [facility] | | | | performed at [facility], [address] | | LABORATORY | | | | [address], | | | | | | [place] [address] | | | | + + + + + + + + | Specimen | + + | Blood | + + + + + + + | Performing | Address | City/State/Zipcode | Phone Number | | Organization | | | | + + + + + | [facility] | [address] | [place] [address] | [phone] | + + + + + Comprehensive [...] | | | | | performed at [facility], [address] | | | | | [address], | | | | | | [place] [address] | | | | + + + + + + + + | Specimen | + + | Blood | + + + + + + + | Performing | Address | City/State/Zipcode | Phone Number | | Organization | | | | + + + + + | [facility] | [address] | [place] [address] | [phone] | + + + + + CBC [...] | | | | | | at [facility] [place];[place] [address] | | | | | |[address] | | | | | |Testing performed at [facility] [place] [address] | | | | | | | | | | + + + + + + + + | Specimen | + + | Blood | + + + + + + + | Performing | Address | City/State/Zipcode | Phone Number | | Organization | | | | + + + + + | [facility] | [address] | [place] [address] | [phone] | + + + + + Protime INR (04/06/2019 2:48 AM PST) + + + + + + | Component | Value | Ref Range | Performed | Pathologist | | | | | At | Signature | + + + + + + | INR | 1.2Comment: REFERENCE | | [facility] | | | | RANGE:0.9 - 1.2 [...] | | | | | performed at [facility] [facility] | | | | | [...] | + + + + + | [facility] | [address] | [place] [address] | [phone] | + + + + + PTT (04/06/2019 2:48 AM PST) + + + + + + | Component | Value | Ref Range | Performed | Pathologist | | | | | At | Signature | + + + + + + | PTT | 34 (H)Comment: Testing | 23 - 32 seconds | [facility] | | | | performed at [facility] | | LABORATORY | | | | [address];[place] | | | | | | [address] | | | | + + + + + + + + | Specimen | + + | Blood | + + + + + + + | Performing | Address | City/State/Zipcode | Phone Number | | Organization | | | | + + + + + | [facility] | [address] | [place] [address] | [phone] | + + + + + Troponin I (04/06/2019 2:48 AM PST) + + + + + + | Component | Value | Ref Range | Performed | Pathologist | | | | | At | Signature | + + + + + + | Troponin I | 0.198 (H)Comment: 0.04 | 0.00 - 0.04 | [facility] | | | | ng/mL or less [...] at | | | | | | [facility] [facility] | | | | | | Blvd;[place] [address] | | | | + + + + + + + + | Specimen | + + | Blood | + + + + + + + | Performing | Address | City/State/Zipcode | Phone Number | | Organization | | | | + + + + + | [facility] | [address] | [place] [address] | [phone] | + + + + + documented [...]
--- OUTSIDE RECORDS SUMMARY | ~2019-08-23 | XMS | Encounter Summary ---
Demographics + + + | Address | [address] | | | [place] [address] | + + + | Home Phone [...] + | Jessica Shepard | ECON | [address] | | | | | [place] | | | | | [address] | | + + + + + | Bel Solis | ECON | Unknown | | + + + + + Care Team Providers + +------+ + | Care Gritting Machine Operator Name | Role | Phone | + +------+ + | Jamar Manuel MD | PCP | | + +------+ + Encounter Details +--------+ + + + + | Date | Type | Department | Care Team | Description | +--------+ + + + + | 05/18/ | Documentati | [facility] | Kelsi, | | | 2020 | on | INFECTIOUS DISEASE | MD [address] | | | | | [address] | [address] | | | | | [place], [place] | [place] [address] | | | | | [address] | [phone] | | | | | [phone] | | | +--------+ + + + [...] further issues arise over the weekend, ID contract engineer physician will be contacted.Electr onically signed by [...]
--- OUTSIDE RECORDS SUMMARY | ~2019-08-23 | XMS | Encounter Summary ---
Demographics + + + | Address | [address] | | | [place] [address] | + + + | Home Phone [...] + | Jessica Shepard | ECON | [address] | | | | | [place] | | | | | [address] | | + + + + + | Bel Solis | ECON | Unknown | | + + + + + Care Team Providers + +------+ + | Care Track And Field Coach Name | Role | Phone | [...] + + | 05/16/ | Documentati | [facility] | Dylan Gaston, | Results (LABS (CMP, | | 2019 | on | INFECTIOUS DISEASE | Hero Malave MD | VANCO TROUGH, CRP, | | | | [address] | [address] | CBC, ESR | | | | [place] | [place] [address] | 05/14/2019)) | | | | [address] | [phone] | | | | | [phone] | | | +--------+ + + + [...] of this encounter Progress Notes Charlotte Castellon, Can Labeler - 05/16/2019 11:48 AM PSTLab Type: CMP, VANCO TR OUGH, CRP, CBC, ESR Lab Collection date: 05/14/2019 Received from:[facility] Abstracted into Influitive:YES Sent to scan:YES Author:CHARLOTTE PALENCIA CMA P [...]
--- OUTSIDE RECORDS SUMMARY | ~2019-08-23 | XMS | Encounter Summary ---
Demographics + + + | Address | [address] | | | [place] [address] | + + + | Home Phone | | + + + | Preferred Language | Unknown | + + + | Marital Status | | + + + | Gnosticist Affiliation | 1076 | + + + | Race | Unknown | + + + | Ethnic Group | Unknown | + + + Author + + + | Author | [facility] | | | and [place] | + + + | Organization | [facility] | | | and [place] | + + + | Address | Unknown | + + + | Phone | Unavailable | + + + Support + + + + + | Name | Relationship | Address | Phone | + + + + + | Jessica Shepard | ECON | [address] | | | | | [place] | | | | | [address] | | + + + + + | Bel Solis | ECON | Unknown | | + + + + + Care Team Providers + +------+ + | Care Private Duty Aide Name | Role | Phone | + +------+ + | Jamar Manuel MD | PCP | | + +------+ + Encounter Details +--------+ + + + + | Date | Type | Department | Care Team | Description | +--------+ + + + + | 01/03/ | Lab | [facility] | Toby Ortiz | Other acute | | 2018 | Requisition | [facility] | MD [address] | osteomyelitis, right | | | | [address] [place] | [facility] | ankle and foot | | | | [place], [place] | [facility] [place] [address] | ([facility]); Diabetes | | | | [address] | [phone] | mellitus due to | | | | [phone] | | underlying condition | | | | | | with foot ulcer | | | | | | (CODE) ([facility]); Other | | | | | | long term acute care registered nurse (current) | | | | | | [...] section. | | | | | ([facility]) Diabetes | | | | | | mellitus due to | | | | | | underlying condition | | | | | | with foot ulcer | | | | | | (CODE) ([facility]) Other | | | | | | long term acute care registered nurse (current) | | | | | | [...] | | | | | (CODE) ([facility]) Other | | | | | | long term acute care registered nurse (current) | | | | | | drug therapy | | + +--------+ + + + | C-REACTIVE PROTEIN | Routin | 01/03/2018 | Other acute | Results for this | | | e | 9:45 AM | osteomyelitis, right | procedure are in the | | | | PDT | ankle and foot | results section. | | | | | ([facility]) Diabetes | | | | | | mellitus due to | | | | | | underlying condition | | | | | | with foot ulcer | | | | | | (CODE) ([facility]) Other | | | | | | long term acute care registered nurse (current) | | | | | | [...] section. | | | | | ([facility]) Diabetes | | | | | | mellitus due to | | | | | | underlying condition | | | | | | with foot ulcer | | | | | | (CODE) ([facility]) Other | | | | | | care home (current) | | | | | | [...] 12 | 7 - 18 mg/dL | [facility] | | | | | | [facility] | | | | | | MEDICAL | | | | | | CENTER - | | | | | | LABORATORY | | + + + + + + | Creatinine | 0.63 | 0.60 - 1.30 | [facility] | | | | | mg/dL | [facility] | | | | | | MEDICAL | | | | | | CENTER - | | | | | | LABORATORY | | + + + + + + | eGFR if not | >60Comment: GLOMERULAR | >=60 | [facility] | | | | FILTRATION | mL/min/1.73m2 | [facility] | | | NIUEAN | RATE,ESTIMATED | | MEDICAL | | | | mL/min/1.16x1Wnif than | | CENTER - | | [...] + | [facility] | [address] | [place] | [phone] | | [facility] | | [address] | | | - LABORATORY | | [...] [address] | [place] | [phone] | | [facility] | | [address] | | | - LABORATORY | | [...] + | [facility] | [address] | [place] | [phone] | | [facility] | | [address] | | | - LABORATORY | | [...] [facility] | | | | | | [facility] | | | | | | MEDICAL | | | | | | CENTER - | | | | | | LABORATORY | | + + + + + + | RBC | 4.83 | 4.30 - 5.70 | [facility] | | | | | M/uL | [facility] | | | | | | MEDICAL [...] [address] | [place] | [phone] | | [facility] | | [address] | | | - LABORATORY | | | | + + + + + documented in this encounter Visit Diagnoses + + | Diagnosis | + + | Other acute osteomyelitis, right ankle and foot (HCC) | + + | 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
--- OUTSIDE RECORDS SUMMARY | ~2019-08-23 | XMS | Encounter Summary ---
Demographics + + + | Address | [address] | | | [place] [address] | + + + | Home Phone [...] + | Jessica Shepard | ECON | [address] | | | | | [place] | | | | | [address] | | + + + + + | Bel Solis | ECON | Unknown | | + + + + + Care Team Providers + +------+ + | Care Machine Inker Name | Role | Phone | + +------+ + PCP | Unavailable | + +------+ + Encounter Details +--------+ + + + + | Date | Type | Department | Care Team | Description | +--------+ + + + + | 12/27/ | Hospital | [facility] | | | | 2006 | Encounter | MED CTR XRAY [address] | | | | | | [place] | | | | | | [place] [address] | | | | | | [phone] | | | +--------+ + + + [...]
--- OUTSIDE RECORDS SUMMARY | ~2019-08-23 | XMS | Encounter Summary ---
Demographics + + + | Address | [address] | | | [place] [address] | + + + | Home Phone [...] + | Jessica Shepard | ECON | [address] | | | | | [place] | | | | | [address] | | + + + + + | Bel Solis | ECON | Unknown | | + + + + + Care Team Providers + +------+ + | Care Venue Manager Name | Role | Phone | + +------+ + | Jamar Manuel MD | PCP | | + +------+ + Encounter Details +--------+ + + + + | Date | Type | Department | Care Team | Description | +--------+ + + + + | 04/18/ | Anesthesia | [facility] | Khadra Cheng, | | | 2019 | [facility] | [address] | | | | | [address]PER[address] | [place] [address] | | | | | [address] | [phone] | | | | | [place], [place] | | | | | | [address] | | | | | | [phone] | | | +--------+ + + + [...] +----+---+ + + | | 1 | [place] | | | | 3 | 43-degrees [...] | Sheila Cabrera, | | Lumen | [employer] School Professional; Kamer[place]; Registered | | RN | | [...] | | | | lot number (specify) ([id number]); | | | | | 4 Fr, length (specify) (47cm | | | | | total [id number] out); | | | | | distraction, [...]
--- OUTSIDE RECORDS SUMMARY | ~2019-08-23 | XMS | Encounter Summary ---
Demographics + + + | Address | [address] | | | [place] [address] | + + + | Home Phone [...] + | Jessica Shepard | ECON | [address] | | | | | [place] | | | | | [address] | | + + + + + | Bel Solis | ECON | Unknown | | + + + + + Care Team Providers + +------+ + | Care Piping Designer Name | Role | Phone | [...] + + | 04/25/ | Documentati | [facility] | Dylan Gaston, | Results (CBC, CMP, | | 2020 | on | INFECTIOUS DISEASE | Hero Malave MD | ESR, CRP, Vanco | | | | [address] | [address] | Trough) | | | | [place], [place] | [place] [address] | | | | | [address] | [phone] | | | | | [phone] | | | +--------+ + + + [...] of this encounter Progress Notes Kady Westbrook, Pediatric Oncologist - 04/25/2019 1:18 PM PSTReceived lab results [...] + + | REFERENCE LAB | [address] | [place], [place] | [phone] | | [facility] | | [address] | | + + + + + [...] + + | REFERENCE LAB | [address] | [place], [place] | [phone] | | [facility] | | [address] | | + + + + + [...] + + + | REFERENCE LAB | [address] | [place] | [phone] | | [facility] | | [address] | | + + + + + [...] + + | REFERENCE LAB | [address] | [place] | [phone] | | [facility] | | [address] | | + + + + + [...] + + + | REFERENCE LAB | [address] | [place] | [phone] | | [facility] | | [address] | | + + + + + [...]
--- OUTSIDE RECORDS SUMMARY | ~2019-08-23 | XMS | Encounter Summary ---
Demographics + + + | Address | [address] | | | [place] [address] | + + + | Home Phone | | + + + | Preferred Language | Unknown | + + + | Marital Status | | + + + | Hinduism Affiliation | 1076 | + + + | Race | Unknown | + + + | Ethnic Group | Unknown | + + + Author + + + | Author | [facility] | | | and [place] | + + + | Organization | [facility] | | | and [place] | + + + | Address | Unknown | + + + | Phone | Unavailable | + + + Support + + + + + | Name | Relationship | Address | Phone | + + + + + | Jessica Shepard | ECON | [address] | | | | | [place] | | | | | [address] | | + + + + + | Bel Solis | ECON | Unknown | | + + + + + Care Team Providers + +------+ + | Care Manufacturing Development Engineer Name | Role | Phone | [...] (HCC) | | | | [address] | [facility] | (Primary Dx) | | | | [address] [place] [address] | [place] [address] | | | | | [address] | [phone] | | | | | [phone] | | | +--------+ + + + [...] saline. SBAR report to ELLIOT Ramirez @ [facility] who continues care. Dressing will Need to [...]
--- OUTSIDE RECORDS SUMMARY | ~2019-08-23 | XMS | Encounter Summary ---
Demographics + + + | Address | [address] | | | [place] [address] | + + + | Home Phone [...] | Organization | [facility] | | | and [place] | + + + | Address | Unknown | + + + | Phone | Unavailable | + + + Support + + + + + | Name | Relationship | Address | Phone | + + + + + | Jessica Shepard | ECON | [address] | | | | | [place] | | | | | [address] | | + + + + + | Bel Solis | ECON | Unknown | | + + + + + Care Team Providers + +------+ + | Care Computer Peripheral Equipment Operator Name | Role | Phone | [...] + + | 05/23/ | Telephone | [facility] | Nimo Westbrook, | Care Coordination | | 2020 | | INFECTIOUS DISEASE | Displayer | (EOT??); Other (pic | | | | [address] | | d/c) | | | | [place] | | | | | | [address] | | | | | | [phone] | | | +--------+ + + + [...]
--- OUTSIDE RECORDS SUMMARY | ~2019-08-23 | XMS | Encounter Summary ---
Demographics + + + | Address | [address] | | | [place] [address] | + + + | Home Phone | | + + + | Preferred Language | Unknown | + + + | Marital Status | | + + + | Hoahaoism Affiliation | 1076 | + + + | Race | Unknown | + + + | Ethnic Group | Unknown | + + + Author + + + | Author | [facility] | | | and [place] | + + + | Organization | [facility] | | | and [place] | + + + | Address | Unknown | + + + | Phone | Unavailable | + + + Support + + + + + | Name | Relationship | Address | Phone | + + + + + | Jessica Shepard | ECON | [address] | | | | | [place] | | | | | [address] | | + + + + + | Bel Solis | ECON | Unknown | | + + + + + Care Team Providers + +------+ + | Care Boiler Tender Name | Role | Phone | [...] + + | 04/25/ | Telephone | [facility] | Ely Mcguire | Other (care | | 2020 | | INFECTIOUS DISEASE | Parminder RN | coordination) | | | | [address] | | | | | | [place], [place] | | | | | | [address] | | | | | | [phone] | | | +--------+ + + + [...]
--- OUTSIDE RECORDS SUMMARY | ~2019-08-23 | XMS | Encounter Summary ---
Demographics + + + | Address | [address] | | | [place] [address] | + + + | Home Phone [...] + | Jessica Shepard | ECON | [address] | | | | | [place] | | | | | [address] | | + + + + + | Bel Solis | ECON | Unknown | | + + + + + Care Team Providers + +------+ + | Care Switchboard Operator Helper Name | Role | Phone [...] | | | | | | [facility] | | | | | | [address] | | | | | | [phone] | | | +--------+ + + + [...]
--- OUTSIDE RECORDS SUMMARY | ~2019-08-23 | XMS | Encounter Summary ---
Demographics + + + | Address | [address] | | | [place] [address] | + + + | Home Phone [...] + | Jessica Shepard | ECON | [address] | | | | | [place] | | | | | [address] | | + + + + + | Bel Solis | ECON | Unknown | | + + + + + Care Team Providers + +------+ + | Care Associate Professor Name | Role | Phone | + +------+ + | Jamar Manuel MD | PCP | | + +------+ + Encounter Details +--------+ + + + + | Date | Type | Department | Care Team | Description | +--------+ + + + + | 04/10/ | Hospital | [facility] | Aleksander Montiel, | | | 2019 | [facility] | [facility] | MD Nash SMITH | | | | | ULTRASOUND [address] [place], [place] | | | | | [address] | [address] | | | | | [place], [place] | [phone] | | | | | [address] | | | | | | [phone] | | | +--------+ + + + [...]
--- OUTSIDE RECORDS SUMMARY | ~2019-08-23 | XMS | Encounter Summary ---
Demographics + + + | Address | [address] | | | [place] [address] | + + + | Home Phone [...] + | Jessica Shepard | ECON | [address] | | | | | [place] | | | | | [address] | | + + + + + | Bel Solis | ECON | Unknown | | + + + + + Care Team Providers + +------+ + | Care Supervisor Special Effects Name | Role | Phone | + [...] + + | 05/08/ | Office | [facility] | Mika Tim, DNP | Peripheral vascular | | 2020 | Visit | VASCULAR SURGERY | [address] | disease (HCC) | | | | [address] | [place] | (Primary Dx) | | | | [place] | [address] | | | | | [address] | | | | | | [phone] | Bhanu Seaman, | | | | | | FRANCY [address] | | | | | | [address] [place] | | | | | | [place] [address] | | | | | | [phone] | | | | | | | [...] Maguire PA-C - 05/08/2019 9:30 AM [facility] [address] [place] [address] Office: [phone] DATE OF VISIT: 05/08/2019 PATIENT NAME: Reagan Shepard : 1945; AGE: 74 y.o.; Sex:M PHONE NUMBER: ; ; PROVIDER: Bhanu Seaman PA-C PRIMARY CARE / REFERRING PHYSICIAN: Mika Tim DNP / Jamar Manuel MD / [address] / [place] [address] REASON FOR EVALUATION / CHIEF COMPLAINT: Vascular [...] have been stable. He is staying at [facility] in [place]. Mariaelena allen thinks his wounds are healing. [...] are healing well without signs of infection. [place] intact. Ulcers on right foot in h [...] o bilateral feet ulcers. Follow up with family court counsellor soon. Return to vascular clinic in 2 [...]
--- OUTSIDE RECORDS SUMMARY | ~2019-08-23 | XMS | Encounter Summary ---
Demographics + + + | Address | [address] | | | [place] [address] | + + + | Home Phone [...] + | Jessica Shepard | ECON | [address] | | | | | [place] | | | | | [address] | | + + + + + | Bel Solis | ECON | Unknown | | + + + + + Care Team Providers + +------+ + | Care Electrophysiology Technician Name | Role | Phone | [...] | | | | | (HCC) | [facility] [place] | | | | | | Procedures | [address] | | | | | | [address] | Phone: | | | | | | Art Bilat w | [phone] | | | | | | CINDY Multi | Fax: | | | | | | Lvl | [phone] | | +--------+--------+ + + + + Reason for Visit + + + | Reason | Comments | + + + | Follow-up | | + + + Encounter Details +--------+---------+ + + + | Date | Type | Department | Care Team | Description | +--------+---------+ + + + | 05/21/ | Office | [facility] | Mika Tim, DNP | Peripheral vascular | | 2020 | Visit | VASCULAR SURGERY | [address] | disease (HCC) | | | | [address] | [place], [place] | (Primary Dx); S/P | | | | [place], [place] | [address] | arterial stent; S/P | | | | [address] | | femoral-popliteal | | | | [phone] | | bypass surgery; | | | [...] Mika Tim DNP - 05/22/2019 10:30 AM [facility] [address] [place] [address] Office: [phone] DATE OF VISIT: 05/22/2019 PATIENT NAME: Reagan Shepard : 1945; AGE: 74 y.o.; Sex:M PHONE NUMBER: ; ; PROVIDER: Mika Tim DNP PRIMARY CARE / REFERRING PHYSICIAN: No ref. provider found / Jamar Manuel MD / [address] / [place] [address] REASON FOR EVALUATION / CHIEF COMPLAINT: Vascular [...] have been stable. He is staying at [facility] in [place]. Mariaelena allen has not followed up with his senior estimator Dr. Ceballos yet. He is taking aspirin [...] to bilateral feet ulcers. Follow up with senior estimator soon. Return to vascular clinic in 1 [...]
--- OUTSIDE RECORDS SUMMARY | ~2019-08-23 | XMS | Encounter Summary ---
Demographics + + + | Address | [address] | | | [place] [address] | + + + | Home Phone | | + + + | Preferred Language | Unknown | + + + | Marital Status | | + + + | Protestant Affiliation | 1076 | + + + | Race | Unknown | + + + | Ethnic Group | Unknown | + + + Author + + + | Author | [facility] | | | and [place] | + + + | Organization | [facility] | | | and [place] | + + + | Address | Unknown | + + + | Phone | Unavailable | + + + Support + + + + + | Name | Relationship | Address | Phone | + + + + + | Jessica Shepard | ECON | [address] | | | | | [place] | | | | | [address] | | + + + + + | Bel Solis | ECON | Unknown | | + + + + + Care Team Providers + +------+ + | Care Graphics Editor Name | Role | Phone | + +------+ + | Jamar Manuel MD | PCP | | + +------+ + Encounter Details +--------+---------+ + + + | Date | Type | Department | Care Team | Description | +--------+---------+ + + + | 04/10/ | Surgery | [facility] | Aleksander Montiel, | CYSTOSCOPY | | 2019 | | [facility] | MD Nash SMITH | | | | | OPERATING ROOM [address] [place], [place] | | | | | [facility] | [address] | | | | | [place], [place] | [phone] | | | | | [address] | | | | | | [phone] | | | +--------+---------+ + + + [...] other chronic comorbidities who pre sents to [facility] ER on 04/06 for shortness of breath admitted with 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 The patient was admitted to regular medical floor and started on optimal medical management . On-call tan room supervisor (Dr. Ruelas) recommended continued medical management. [...] inferior defect with partial improvement at rest lumber planer was i nformed by hospitalist colleague recommended [...] their primary care provider within 1 w jackson after discharge, follow-up with ID in 2 weeks after discharge, follow-up with vascular s urgery as per their recommendations or otherwise within 2 weeks after discharge. The patien t will need to follow-up with his outpatient tan room supervisor within 1 to 2 weeks after [...] Reviewed. Discharge Information: Follow up: [facility] SAMM [address] [facility] [address] Bhanu Seaman PA-C [address] [place] [facility] [address] In 2 weeks Jamar Manuel MD [address] [place] [address] Schedule an appointment as soon as possible for a visit in 1 week Hero Gaston MD [address] [facility] [address] Schedule an appointment as soon as possible for a visit in 2 weeks Post hospital discharge follow-up Dr. New Ruelas [address] [facility] [address] [facility] [address] Schedule an appointment as soon [...] mg per tablet aka: NORCO . [facility] [place] [facility] Condition: Stable Code Status: Full Code Discharge [...] numbness Complications from anesthesia Date Last Reviewed: 08/20/201519994821-95[address] [employer] [place] [address]. All righ ts reserved. This information is [...] PA-C - 04/21/2019 8:[address] [facility] Service: Vascular Surgery Progress Note SUBJECTIVE Patient Summary: 74 y.o. man with complex medical issues and LE ischemic ulcers, he wa s recently admitted to the [facility] from 03/28/19 to 04/04/19 where he was treated/ diagnosed with systolic heart failure, type 2 GA/NSTEMI, SHAE, ARF. O2 desaturation brought him from SNF to [facility] and current admission today with CHF and [...] RN - 04/20/2019 4:[address] [facility] Service: Wound Care Follow Up Note [...] Primary Wound Type: Diabetic Ulcer Side: Left Marshall ation: lateral Location: foot Wound Subtype: ulceration, [...] D - 04/20/2019 2:[address] [facility] Service: Hospitalist Progress Note Pt: Reagan [...] hematuria. Recent history notable for admit to [facility] from 03/28/19 to 04/04/2019 for CHF [...] encounter as of 04/20/19-14:16 IMAGING: Reviewed in [facility], no new results. PROBLEM LIST [...] Received 8 days of IV antibiotics at [facility] discharged home on with augmentin, now readmitted on 04/06 at [facility] and started on rocephin after sending 2 [...] as indicated. Thank You, Sunshine Love, PharmD, [facility] 04/20/19 1:52 PM Electronically signed by Sunshine Love [facility] at 04/20/2019 1:53 PM Nandini Sánchez se, MD - 04/20/2019 8:[address] [facility] Service: Infectious Diseases Progress Note Hospital [...] Component Value Units Date/Time Culture, Wound, Superficial [[id number]] (Abnormal) (Susceptibility) Collected: 04/06/191545 Order Status: Completed Lab Status: Final result Updated: 04/11/19727 Specimen: Body Fluid from Heel, Right Special Requests LT FOOT Special Requests Testing performed at [facility];[address] [place] [address] RESULT -- 1+ ENTEROCOCCUS FAECALIS Aminoglycosides (except [...] Sensitive SUSCEPTIBLE JESSICA Final Testing performed at [facility], [address] [place] [address] Culture, Wound, Superficial [[id number]] Collected: 04/06/191545 Order Status: Completed Lab Status: Final result Updated: 04/08/1937 Specimen: Body Fluid from Heel, Right Special Requests RIGHT FOOT Special Requests Testing performed at [facility];[address] [place] [address] RESULT -- 1+ NORMAL SKIN CELSA ISOLATED RESULT NO FURTHER WORKUP RESULT Testing performed at [facility], [address] [place] [address] Comment: Testing performed at [facility], [address] [place] [address] Microbiology Results (72 hrs) No results found [...] assisting with dosing and monitorization. Discussed with heel caser regarding OPAT. Discussed with heel caser regarding discharge planning. Dr. Dolan will take over ID service tomorrow. Please call if questions. Hero Richardson MD, MPH Infectious Diseases 04/20/19 Sheila Gage RN - 04/19/2019 7:20 PM PSTEnd of shift chart check complete. Sheila Cabrera RN Sunshine Chen, [facility] - 04/19/2019 3:23 PM PSTFormatting of this [...] Sunshine Love, PharmD, BCCCP 04/19/19 3:21 PM Electronically signed by Sunshine Love [facility] at 04/19/2019 3:23 PM Grover Shaver MD - 04/19/2019 2:[address] [facility] Service: Hospitalist Progress Note Pt: Reagan [...] hematuria. Recent history notable for admit to [facility] from 03/28/19 to 04/04/2019 for CHF [...] Received 8 days of IV antibiotics at [facility] discharged home on with augmentin, now readmitted on 04/06 at [facility] and started on rocephin after sending 2 [...] might be different from the ramiro ragsdale. [facility] Service: Infectious Diseases Progress Note Hospital [...] Component Value Units Date/Time Culture, Wound, Superficial [[id number]] (Abnormal) (Susceptibility) Collected: 04/06/19 1546 Order Status: Completed Lab Status: Final result Updated: 04/11/1928 Specimen: Body Fluid from Heel, Right Special Requests LT FOOT Special Requests Testing performed at [facility];[address] [place] [address];[place] [address] RESULT -- 1+ ENTEROCOCCUS FAECALIS Aminoglycosides (except [...] Sensitive SUSCEPTIBLE JESSICA Final Testing performed at [facility], [address] [place] [address] Culture, Wound, Superficial [[id number]] Collected: 04/06/19 1546 Order Status: Completed Lab Status: Final result Updated: 04/08/1937 Specimen: Body Fluid from Heel, Right Special Requests RIGHT FOOT Special Requests Testing performed at [facility];[address] [place] [address] RESULT -- 1+ NORMAL SKIN CELSA ISOLATED RESULT NO FURTHER WORKUP RESULT Testing performed at [facility], [address] [place] [address] Comment: Testing performed at [facility], [address] [place] [address] Culture, Blood [[id number]] Collected: 04/06/19 0338 Order Status: Completed Lab Status: Final result Updated: 04/12/1952 Specimen: Peripheral Blood Special Requests R WRIST Special Requests Testing performed at [facility];[address] [place] [address] RESULT NO GROWTH 6 DAYS RESULT Testing performed at [facility], [address] [place] [address] Comment: Testing performed at [facility], [address] [place] [address] Culture, Blood [[id number]] Collected: 04/06/19 0331 Order Status: Completed Lab Status: Final result Updated: 04/12/1952 Specimen: Peripheral Blood Special Requests L WRIST Special Requests Testing performed at [facility];[address] [place] [address] RESULT NO GROWTH 6 DAYS RESULT Testing performed at [facility], [address] [place] [address] Comment: Testing performed at [facility], [address] [place] [address] Microbiology Results (72 hrs) No results found [...] might be different from the o sheryl. [facility] Service: Vascular Surgery Progress Note SUBJECTIVE Patient Summary: 74 y.o. man with complex medical issues and LE ischemic ulcers, he wa s recently admitted to the [facility] from 03/28/19 to 04/04/19 where he was treated/ diagnosed with systolic heart failure, type 2 GA/NSTEMI, SHAE, ARF. O2 desaturation brought him from SNF to [facility] and current admission today with CHF and [...] Rachel Patino RN - 04/19/2019 5:46 AM [id number] left foot dressing change complete per order. [...] Shaver MD - 4:[address] [facility] Service: Hospitalist Progress Note Pt: Reagan Shepard AGE/SEX: 74 y.o. male ROOM: [facility] OR INTRA OP POOL/[facility]* : 1945 PCP: Jamar Manuel MD ADMIT DATE: 04/06/2019 TODAY'S DATE: 04/18/2019 Hospital Day/Hospital Course: LOS: 12 days Mr. Shepard is a 74-year-old gentleman with a history of bilateral nonhealing diabetic trisha t ulcers, and history of TBI, stroke, insulin dependent DM, who presents with CHF exacerbati on with hospital course complicated by gross hematuria. Recent history notable for admit to [facility] from 03/28/19 to 04/04/2019 for CHF exacerbation with eventual dischar ge to [facility]. He then re-presented to same hospital due to worsening SOB and again found to have CHF exacerbation though this time with elevated troponin to 0.17. Dr. Jessenia kahn as called and accepted the patient in [...] the last 72 hours. IMAGING: Reviewed in [facility], no new results. PROBLEM LIST [...] Received 8 days of IV antibiotics at [facility] discharged home on with augmentin, now readmitted on 04/06 at [facility] and started on rocephin after sending 2 [...] as indicated. Thank You, Sunshine Love, PharmD, [facility] 04/18/19 2:45 PM Electronically signed by Sunshine Love [facility] at 04/18/2019 2:45 PM Syed López PTA - 04/18/2019 [...] be different from t kevin original. [facility] Service: Infectious Diseases Progress Note Hospital [...] Component Value Units Date/Time Culture, Wound, Superficial [[id number]] (Abnormal) (Susceptibility) Collected: 04/06/19 1546 Order Status: Completed Lab Status: Final result Updated: 04/11/19 0728 Specimen: Body Fluid from Heel, Right Special Requests LT FOOT Special Requests Testing performed at [facility];[address] [place] [address];[place] [address] RESULT -- 1+ ENTEROCOCCUS FAECALIS Aminoglycosides (except [...] Sensitive SUSCEPTIBLE JESSICA Final Testing performed at [facility], [address] [place] [address] Culture, Wound, Superficial [[id number]] Collected: 04/06/19 1546 Order Status: Completed Lab Status: Final result Updated: 04/08/1937 Specimen: Body Fluid from Heel, Right Special Requests RIGHT FOOT Special Requests Testing performed at [facility];[address] [place] [address] RESULT -- 1+ NORMAL SKIN CELSA ISOLATED RESULT NO FURTHER WORKUP RESULT Testing performed at [facility], [address] [place] [address] Comment: Testing performed at [facility], [address] [place] [address] Culture, Blood [[id number]] Collected: 04/06/198 Order Status: Completed Lab Status: Final result Updated: 04/12/1952 Specimen: Peripheral Blood Special Requests R WRIST Special Requests Testing performed at [facility];[address] [place] [address] RESULT NO GROWTH 6 DAYS RESULT Testing performed at [facility], [address] [place] [address] Comment: Testing performed at [facility], [address] [place] [address] Culture, Blood [[id number]] Collected: 04/06/19330 Order Status: Completed Lab Status: Final result Updated: 04/12/1952 Specimen: Peripheral Blood Special Requests L WRIST Special Requests Testing performed at [facility];[address] [place] [address] RESULT NO GROWTH 6 DAYS RESULT Testing performed at [facility], [address] [place] [address] Comment: Testing performed at [facility], [address] [place] [address] Microbiology Results (72 hrs) No results found [...] be different from the o riginal. [facility] Service: Vascular Surgery Progress Note SUBJECTIVE Patient Summary: 74 y.o. man with complex medical issues and LE ischemic ulcers, he wa s recently admitted to the [facility] from 03/28/19 to 04/04/19 where he was treated/ diagnosed with systolic heart failure, type 2 GA/NSTEMI, SHAE, ARF. O2 desaturation brought him from SNF to [facility] and current admission today with CHF and [...] of shift chart check review [facility] Chen [facility] - 04/17/2019 1:38 PM PST Vancomycin Dosing [...] as indicated. Thank You, Sunshine Love, PharmD, [facility] 04/17/19 1:38 PM Electronically signed by Sunshine Love [facility] at 04/17/2019 1:39 PM Grover Shaver MD - 04/17/2019 12:[address] [facility] Service: Hospitalist Progress Note Pt: Reagan Shepard AGE/SEX: 74 y.o. male ROOM: [address] [place] [address] : 1945 PCP: Jamar Manuel MD ADMIT DATE: 04/06/2019 TODAY'S DATE: 04/17/2019 Hospital Day/Hospital Course: LOS: 11 days Mr. Shepard is a 74-year-old gentleman with a history of bilateral nonhealing diabetic trisha t ulcers, and history of TBI, stroke, insulin dependent DM, who presents with CHF exacerbati on with hospital course complicated by gross hematuria. Recent history notable for admit to [facility] from 03/28/19 to 04/04/2019 for CHF [...] the last 72 hours. IMAGING: Reviewed in [facility], no new results. PROBLEM LIST [...] Received 8 days of IV antibiotics at [facility] discharged home on with augmentin, now readmitted on 04/06 at [facility] and started on rocephin after sending 2 [...] Modi MD - 11:[address] [facility] Service: Cardiology/[facility] Interventional cardiology note RE: Reagan [...] minimal reversib ility 2. Recent non-Q wave GA 3. Severe peripheral vascular disease 4. Diabetes [...] might be different from the origi nal. [facility] Service: Infectious Diseases Progress Note Hospital [...] Component Value Units Date/Time Culture, Wound, Superficial [[id number]] (Abnormal) (Susceptibility) Collected: 04/06/19 1546 Order Status: Completed Lab Status: Final result Updated: 04/11/19 0728 Specimen: Body Fluid from Heel, Right Special Requests LT FOOT Special Requests Testing performed at [facility];[address] [place] [address];[place] [address] RESULT -- 1+ ENTEROCOCCUS FAECALIS Aminoglycosides (except [...] Sensitive SUSCEPTIBLE JESSICA Final Cefoxitin Resistant RESISTANT JESSCIA Final Ceftazidime Sensitive SUSCEPTIBLE JESSICA Final Ceftriaxone [...] Sensitive SUSCEPTIBLE JESSICA Final Testing performed at [facility], [address] [place] [address] Culture, Wound, Superficial [[id number]] Collected: 04/06/19 1546 Order Status: Completed Lab Status: Final result Updated: 04/08/19 0937 Specimen: Body Fluid from Heel, Right Special Requests RIGHT FOOT Special Requests Testing performed at [facility];[address] [place] [address] RESULT -- 1+ NORMAL SKIN CELSA ISOLATED RESULT NO FURTHER WORKUP RESULT Testing performed at [facility], [address] [place] [address] Comment: Testing performed at [facility], [address] [place] [address] Culture, Blood [[id number]] Collected: 04/06/19 0338 Order Status: Completed Lab Status: Final result Updated: 04/12/19 0652 Specimen: Peripheral Blood Special Requests R WRIST Special Requests Testing performed at [facility];[address] [place] [address] RESULT NO GROWTH 6 DAYS RESULT Testing performed at [facility], [address] [place] [address] Comment: Testing performed at [facility], [address] [place] [address] Culture, Blood [[id number]] Collected: 04/06/19 0331 Order Status: Completed Lab Status: Final result Updated: 04/12/19 0652 Specimen: Peripheral Blood Special Requests L WRIST Special Requests Testing performed at [facility];[address] [place] [address] RESULT NO GROWTH 6 DAYS RESULT Testing performed at [facility], [address] [place] [address] Comment: Testing performed at [facility], [address] [place] [address] Microbiology Results (72 hrs) No results found [...] might be different from the o sheryl. [facility] Service: Vascular Surgery Progress Note SUBJECTIVE Patient Summary: 74 y.o. man with complex medical issues and LE ischemic ulcers, he wa s recently admitted to the [facility] from 03/28/19 to 04/04/19 where he was treated/ diagnosed with systolic heart failure, type 2 GA/NSTEMI, SHAE, ARF. O2 desaturation brought him from SNF to [facility] and current admission today with CHF and [...] MD - 04/16/2019 6:[address] [facility] Service: Infectious Diseases Progress Note Hospital [...] Component Value Units Date/Time Culture, Wound, Superficial [[id number]] (Abnormal) (Susceptibility) Collected: 04/06/19 1546 Order Status: Completed Lab Status: Final result Updated: 04/11/19 9142 Specimen: Body Fluid from Heel, Right Special Requests LT FOOT Special Requests Testing performed at [facility];[address] [place] [address]45 RESULT -- 1+ ENTEROCOCCUS FAECALIS Aminoglycosides (except [...] Sensitive SUSCEPTIBLE JESSICA Final Testing performed at [facility], [address] [place] [address] Culture, Wound, Superficial [[id number]] Collected: 04/06/19 1546 Order Status: Completed Lab Status: Final result Updated: 04/08/19 0937 Specimen: Body Fluid from Heel, Right Special Requests RIGHT FOOT Special Requests Testing performed at [facility];[address] [place] [address] RESULT -- 1+ NORMAL SKIN CELSA ISOLATED RESULT NO FURTHER WORKUP RESULT Testing performed at [facility], [address] [place] [address] Comment: Testing performed at [facility], [address] [place] [address] Culture, Blood [[id number]] Collected: 04/06/19 0338 Order Status: Completed Lab Status: Final result Updated: 04/12/19 0652 Specimen: Peripheral Blood Special Requests R WRIST Special Requests Testing performed at [facility];[address] [place] [address] RESULT NO GROWTH 6 DAYS RESULT Testing performed at [facility], [address] [place] [address] Comment: Testing performed at [facility], [address] [place] [address], [place] [address] Culture, Blood [[id number]] Collected: 04/06/19 0331 Order Status: Completed Lab Status: Final result Updated: 04/12/1952 Specimen: Peripheral Blood Special Requests L WRIST Special Requests Testing performed at [facility];[address] [place] [address];[place] [address] RESULT NO GROWTH 6 DAYS RESULT Testing performed at [facility], [address] [facility], [place] [address] Comment: Testing performed at [facility], [address] [place] [address], [place] [address] Microbiology Results (72 hrs) No results found [...] might be different from the original. [facility] Service: Hospitalist Progress Note Pt: Reagan Shepard AGE/SEX: 74 y.o. male ROOM: [address] [place] [address] : 1945 PCP: Jamar Manuel MD ADMIT DATE: 04/06/2019 TODAY'S DATE: 04/16/2019 Hospital Day/Hospital Course: LOS: 10 days Mr. Shepard is a 74-year-old gentleman with a history of bilateral nonhealing diabetic trisha t ulcers, and history of TBI, stroke, insulin dependent DM, who presents with CHF exacerbati on with hospital course complicated by gross hematuria. Recent history notable for admit to [facility] from 03/28/19 to 04/04/2019 for CHF [...] Received 8 days of IV antibiotics at [facility] discharged home on with augmentin, now readmitted on 04/06 at [facility] and started on rocephin after sending 2 [...] [address] RD 04/16/2019 3:21 PM Sunshine Chen, [facility] - 04/16/2019 12:18 PM PST Vancomycin Dosing [...] Patient encouraged to discuss medication changes with tan room supervisor ragini stanley to stopping medications or making any changes. Patient's questions answered. Heart Fail ure Hot Line number provided to patient. Face to face time was spent with patient providing counseling and education for congestive heart failure. Bhanu Wakefield P A-C - 04/16/2019 8:[address] [facility] Service: Vascular Surgery Progress Note SUBJECTIVE Patient Summary: 74 y.o. man with complex medical issues and LE ischemic ulcers, he wa s recently admitted to the [facility] from 03/28/19 to 04/04/19 where he was treated/ diagnosed with systolic heart failure, type 2 GA/NSTEMI, SHAE, ARF. O2 desaturation brought him from SNF to [facility] and current admission today with CHF and [...] - 04/15/2019 1 2:[address] [facility] Service: Hospitalist Progress Note Pt: Reagan Shepard AGE/SEX: 74 y.o. male ROOM: [facility]/4452- : 1945 PCP: Jamar Manuel MD ADMIT DATE: 04/06/2019 TODAY'S DATE: 04/15/2019 Hospital Day/Hospital Course: LOS: 9 days Mr. Shepard is a 74-year-old gentleman with a history of bilateral nonhealing diabetic trisha t ulcers, and history of TBI, stroke, insulin dependent DM, who presents with CHF exacerbati on with hospital course complicated by gross hematuria. Recent history notable for admit to [facility] from 03/28/19 to 04/04/2019 for CHF [...] 04/14/19 0629 BNP 587.58* IMAGING: Reviewed in [facility], no new results. PROBLEM LIST [...] risk stratification . -cardiology consulted -NPO at [place] for nuc med stress test in morning [...] Received 8 days of IV antibiotics at [facility] discharged home on with augmentin, now readmitted on 04/06 at [facility] and started on rocephin after sending 2 [...] of care purp ose roctor, [facility] - 04/15/2019 10:55 AM PST Vancomycin Dosing [...] Sheila Ahuja, PharmD, BCPS 04/15/2019, 10:41 AM Electronically signed by [facility] at 04/15/2019 10:55 AM Simba Fenton MD - 04/15/2019 8:48 [...] be differ ent from the original. [facility] Service: Infectious Diseases Progress Note Hospital [...] Component Value Units Date/Time Culture, Wound, Superficial [[id number]] (Abnormal) (Susceptibility) Collected: 04/06/19 1546 Order Status: Completed Lab Status: Final result Updated: 04/11/19 0728 Specimen: Body Fluid from Heel, Right Special Requests LT FOOT Special Requests Testing performed at [facility];[address] [place] [address] 55576 RESULT -- 1+ ENTEROCOCCUS FAECALIS Aminoglycosides (except [...] Sensitive SUSCEPTIBLE JESSICA Final Testing performed at [facility], [address] [place] [address] 60574 Culture, Wound, Superficial [[id number]] Collected: 04/06/19 1546 Order Status: Completed Lab Status: Final result Updated: 04/08/19 0937 Specimen: Body Fluid from Heel, Right Special Requests RIGHT FOOT Special Requests Testing performed at [facility];[address] [place] [address] 57227 RESULT -- 1+ NORMAL SKIN CELSA ISOLATED RESULT NO FURTHER WORKUP RESULT Testing performed at [facility], [address] [place] [address] Comment: Testing performed at [facility], [address] [place] [address] 61284 Culture, Blood [[id number]] Collected: 04/06/19 0338 Order Status: Completed Lab Status: Final result Updated: 04/12/1952 Specimen: Peripheral Blood Special Requests R WRIST Special Requests Testing performed at [facility];[address] [place] [address] 13558 RESULT NO GROWTH 6 DAYS RESULT Testing performed at [facility], [address] [place] [address] Comment: Testing performed at [facility], [address] [place] [address] 14179 Culture, Blood [[id number]] Collected: 04/06/19 0331 Order Status: Completed Lab Status: Final result Updated: 04/12/1952 Specimen: Peripheral Blood Special Requests L WRIST Special Requests Testing performed at [facility];[address] [place] [address] 11982 RESULT NO GROWTH 6 DAYS RESULT Testing performed at [facility], [facility] [place] [address] Comment: Testing performed at [facility], [address] [place] [address] 07280 Microbiology Results (72 hrs) No results found [...] note might be different from the origin [facility] Service: Hospitalist Progress Note Pt: Reagan [...] hematuria. Recent history notable for admit to [facility] from 03/28/19 to 04/04/2019 for CHF [...] 04/14/19 0629 BNP 587.58* IMAGING: Reviewed in [facility], no new results. PROBLEM LIST [...] Received 8 days of IV antibiotics at [facility] discharged home on with augmentin, now readmitted on 04/06 at [facility] and started on rocephin after sending 2 [...] date with age appropriate cancer screening PPx: [facility] Code status: Full Dispo: back to [facility] pending improvement in gross hematuria, CHF exacerbation, re peat angiogram, final ID recs, likely 4-5 more days in hospital Grover Charles MD 1:29 PM 04/14/2019 Portions of this chart may have been copied from previous notes for continuity of care purp ose Lyric Molina RN - 04/14/2019 1:[address] [facility] Service: Wound Care Follow Up Note [...] any additional questions. Lyric Mclain RN, CMSRN, [facility] Inpatient Wound Ostomy Care [phone] 04/14/2019 1:29 PM Dheeraj Barraza, PT - [...] vs stable.Vandana Luciano RN obrandi, Meghan Wolff, [facility] - 04/14/2019 6:31 AM PST Vancomycin Dosing [...] indicated. Thank You, Meghan Calvillo, Pharm D, [facility] 04/14/2019, 6:19 AM Vancomycin Dosing History [...] MD - 04/13/2019 4:[address] [facility] Service: Hospitalist Progress Note Pt: Reagan Shepard AGE/SEX: 74 y.o. male ROOM: [address] [place] [address] : 1945 PCP: Jamar Manuel MD ADMIT DATE: 04/06/2019 TODAY'S DATE: 04/13/2019 Hospital Day/Hospital Course: LOS: 7 days Mr. Shepard is a 74-year-old gentleman with a history of bilateral nonhealing diabetic trisha t ulcers, and history of TBI, stroke, insulin dependent DM, who presents with CHF exacerbati on with hospital course complicated by gross hematuria. Recent history notable for admit to [facility] from 03/28/19 to 04/04/2019 for CHF [...] Received 8 days of IV antibiotics at [facility] discharged home on with augmentin, now readmitted on 04/06 at [facility] and started on rocephin after sending 2 [...] date with age appropriate cancer screening PPx: [facility] Code status: Full Dispo: [facility] to [facility] [...] 113.3 kg Adjusted body weight: 89.1 kg [place] body weight: 73 kg Current Vital Signs: [...] [facility] Drawing a level once the patient returns [...] as indicated. Thank You, Sunshine Love, PharmD, [facility] 04/13/19 3:20 PM Electronically signed by Sunshine Love [facility] at 04/13/2019 3:20 PM Nandini Sánchez se, MD - 04/13/2019 10:[address] [facility] Service: Infectious Diseases Progress Note Hospital [...] Component Value Units Date/Time Culture, Wound, Superficial [[id number]] (Abnormal) (Susceptibility) Collected: 04/06/19 1546 Order Status: Completed Lab Status: Final result Updated: 04/11/19 0728 Specimen: Body Fluid from Heel, Right Special Requests LT FOOT Special Requests Testing performed at [facility];[address] [place] [address];[place] [address] RESULT -- 1+ ENTEROCOCCUS FAECALIS Aminoglycosides (except [...] Sensitive SUSCEPTIBLE JESSICA Final Testing performed at [facility], [address] [place] [address] 78243 Culture, Wound, Superficial [[id number]] Collected: 04/06/19 1546 Order Status: Completed Lab Status: Final result Updated: 04/08/1937 Specimen: Body Fluid from Heel, Right Special Requests RIGHT FOOT Special Requests Testing performed at [facility];[address] [place] [address] 91046 RESULT -- 1+ NORMAL SKIN CELSA ISOLATED RESULT NO FURTHER WORKUP RESULT Testing performed at [facility], [address] [place] [address] 61435 Comment: Testing performed at [facility], [address] [place] [address] 76323 Culture, Blood [[id number]] Collected: 04/06/198 Order Status: Completed Lab Status: Final result Updated: 04/12/1952 Specimen: Peripheral Blood Special Requests R WRIST Special Requests Testing performed at [facility];[address] [place] [address] 51954 RESULT NO GROWTH 6 DAYS RESULT Testing performed at [facility], [address] [place] [address]341 Comment: Testing performed at [facility], [address] [place] [address] 43977 Culture, Blood [[id number]] Collected: 04/06/19330 Order Status: Completed Lab Status: Final result Updated: 04/12/1952 Specimen: Peripheral Blood Special Requests L WRIST Special Requests Testing performed at [facility];[address] [place] [address] 77648 RESULT NO GROWTH 6 DAYS RESULT Testing performed at [facility], [address] [place] [address] 94991 Comment: Testing performed at [facility], [address] [place] [address] 05400 Microbiology Results (72 hrs) No results found [...] might be different from the o sheryl. [facility] Service: Vascular Surgery Progress Note SUBJECTIVE Patient Summary: 74 y.o. man with complex medical issues and LE ischemic ulcers, he wa s recently admitted to the [facility] from 03/28/19 to 04/04/19 where he was treated/ diagnosed with systolic heart failure, type 2 GA/NSTEMI, SHAE, ARF. O2 desaturation brought him from SNF to [facility] and current admission today with CHF and [...] risks. Signed consent obtained. Will proceed to [facility] [employer] today for right leg angiogram. Moderate Sedation [...] be different from the o riginal. [facility] Service: Infectious Diseases Progress Note Hospital [...] Component Value Units Date/Time Culture, Wound, Superficial [[id number]] (Abnormal) (Susceptibility) Collected: 04/06/19 1546 Order Status: Completed Lab Status: Final result Updated: 04/11/19 0728 Specimen: Body Fluid from Heel, Right Special Requests LT FOOT Special Requests Testing performed at [facility];[address] [place] [address];[place] [address] RESULT -- 1+ ENTEROCOCCUS FAECALIS Aminoglycosides (except [...] Resistant RESISTANT JESSICA Final Vancomycin Sensitive SUSCEPTIBLE JSESICA Final Testing performed at [facility], [address] [place] [address] 41118 Culture, Wound, Superficial [[id number]] Collected: 04/06/19 1546 Order Status: Completed Lab Status: Final result Updated: 04/08/19 0937 Specimen: Body Fluid from Heel, Right Special Requests RIGHT FOOT Special Requests Testing performed at [facility];[address] [place] [address] 24579 RESULT -- 1+ NORMAL SKIN CELSA ISOLATED RESULT NO FURTHER WORKUP RESULT Testing performed at [facility], [address] [place] [address] 38512 Comment: Testing performed at [facility], [address] [place] [address] 33078 Culture, Blood [[id number]] Collected: 04/06/19 0338 Order Status: Completed Lab Status: Final result Updated: 04/12/19 0652 Specimen: Peripheral Blood Special Requests R WRIST Special Requests Testing performed at [facility];[address] [place] [address] 99737 RESULT NO GROWTH 6 DAYS RESULT Testing performed at [facility], [address] [place] [address] Comment: Testing performed at [facility], [address] [place] [address] 42738 Culture, Blood [[id number]] Collected: 04/06/19 0331 Order Status: Completed Lab Status: Final result Updated: 04/12/19 0652 Specimen: Peripheral Blood Special Requests L WRIST Special Requests Testing performed at [facility];[address] [place] [address];[place] [address] RESULT NO GROWTH 6 DAYS RESULT Testing performed at [facility], [address] [place] [address] Comment: Testing performed at [facility], [address] [place] [address], [place] [address] Microbiology Results (72 hrs) No results found [...] might be different from the origi nal. [facility] Service: Hospitalist Progress Note Pt: Reagan [...] hematuria. Recent history notable for admit to [facility] from 03/28/19 to 04/04/2019 for CHF [...] Received 8 days of IV antibiotics at [facility] discharged home on with augmentin, now readmitted on 04/06 at [facility] and started on rocephin after sending 2 [...] PA-C - 04/12/2019 4:[address] [facility] Service: Vascular Surgery Progress Note SUBJECTIVE Patient Summary: 74 y.o. man with complex medical issues and LE ischemic ulcers, he wa s recently admitted to the [facility] from 03/28/19 to 04/04/19 where he was treated/ diagnosed with systolic heart failure, type 2 GA/NSTEMI, SHAE, ARF. O2 desaturation brought him from SNF to [facility] and current admission today with CHF and [...] Bhanu Seaman PA-C Vascular Surgery roSunshine streeter, [facility] - 04/12/2019 12:27 PM PST Vancomycin Dosing Per Pharmacy Subjective/Objective Reagan Shepard is a 74 y.o. 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 Additional antimicrobials: zosyn Quadriplegic/Paraplegic: no Diabetes: yes Baseline Serum Creatinine: 0.6 mg/dL Actual weight: 113.3 kg Adjusted body weight: 89.1 kg [place] body weight: 73 kg Current Vital Signs: [...] as indicated. Thank You, Sunshine Love, PharmD, [facility] 04/12/19 3:27 PM Electronically signed by Sunshine Love [facility] at 04/12/2019 3:29 PM Grover Shaver MD - 04/11/2019 5:[address] [facility] Service: Hospitalist Progress Note Pt: Reagan [...] hematuria. Recent history notable for admit to [facility] from 03/28/19 to 04/04/2019 for CHF [...] Received 8 days of IV antibiotics at [facility] discharged home on with augmentin, now readmitted on 04/06 at [facility] and started on rocephin after sending 2 [...] of care purp ose roctor, [facility] - 04/11/2019 2:03 PM PST Vancomycin Dosing Per Pharmacy Subjective/Objective Reagan Shepard is a 74 y.o. 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 Additional antimicrobials: zosyn Quadriplegic/Paraplegic: no Diabetes: yes Baseline Serum Creatinine: 0.6 mg/dL Actual weight: 113.3 kg Adjusted body weight: 89.1 kg [place] body weight: 73 kg Current Vital Signs: [...] nomogram, current renal function, and desired trough. [facility] ed on patient history, vancomycin [...] therapy as indicated. Thank You, [facility], 04/11/2019, 1:51 PM Hero Sánchez MD - 04/11/2019 10:09 AM PSTFormatting of this note might be different from stephanie brown original. [facility] Service: Infectious Diseases Progress Note Hospital [...] Component Value Units Date/Time Culture, Wound, Superficial [[id number]] (Abnormal) (Susceptibility) Collected: 04/06/19 154 Order Status: Completed Lab Status: Final result Updated: 04/11/19727 Specimen: Body Fluid from Heel, Right Special Requests LT FOOT Special Requests Testing performed at [facility];[address] [place] [address];[place] [address] RESULT -- 1+ ENTEROCOCCUS FAECALIS Aminoglycosides (except [...] Sensitive SUSCEPTIBLE JESSICA Final Testing performed at [facility], [address] [place] [address], [place] [address] Culture, Wound, Superficial [[id number]] Collected: 04/06/19 1546 Order Status: Completed Lab Status: Final result Updated: 04/08/19936 Specimen: Body Fluid from Heel, Right Special Requests RIGHT FOOT Special Requests Testing performed at [facility];[address] [place] [address] 8[address]23 RESULT -- 1+ NORMAL SKIN CELSA ISOLATED RESULT NO FURTHER WORKUP RESULT Testing performed at [facility], [address] [place] [address] 21062 Comment: Testing performed at [facility], [address] [place] [address] 08851 Culture, Blood [[id number]] Collected: 04/06/198 Order Status: Completed Lab Status: Preliminary result Updated: 04/07/19812 Specimen: Peripheral Blood Special Requests R WRIST Special Requests Testing performed at [facility];[address] [place] [address] 01028 RESULT NO GROWTH AT THIS TIME RESULT Testing performed at [facility], [address] [place] [address] 41240 Comment: Testing performed at [facility], [address] [place] [address] 54215 Culture, Blood [[id number]] Collected: 04/06/191 Order Status: Completed Lab Status: Preliminary result Updated: 04/07/19812 Specimen: Peripheral Blood Special Requests L WRIST Special Requests Testing performed at [facility];[address] [place] [address] 21984 RESULT NO GROWTH AT THIS TIME RESULT Testing performed at [facility], [address] [place] [address] 31335 Comment: Testing performed at [facility], [address] [place] [address] 07441 Microbiology Results (72 hrs) No results found [...] MD - 04/10/2019 4:[address] [facility] Service: Hospitalist Progress Note Pt: Reagan Shepard AGE/SEX: 74 y.o. male ROOM: [facility]/4452- : 1945 PCP: Jamar Manuel MD ADMIT DATE: 04/06/2019 TODAY'S DATE: 04/10/2019 Hospital Day/Hospital Course: LOS: 4 days Mr. Shepard is a 74-year-old gentleman with a history of bilateral nonhealing diabetic trisha t ulcers, and history of TBI, stroke, insulin dependent DM, who presents with CHF exacerbati on with hospital course complicated by gross hematuria. Recent history notable for admit to [facility] from 03/28/19 to 04/04/2019 for CHF [...] INR 1.2 PTT 34* IMAGING: Reviewed in [facility], no new results. PROBLEM LIST [...] Received 8 days of IV antibiotics at [facility] discharged home on with augmentin, now readmitted on 04/06 at [facility] and started on rocephin after sending 2 [...] might be different from the ramiro rags[place]. [facility] Service: Infectious Diseases Progress Note Hospital [...] Component Value Units Date/Time Culture, Wound, Superficial [[id number]] (Abnormal) (Susceptibility) Collected: 04/06/191545 Order Status: Completed Lab Status: Preliminary result Updated: 04/10/19929 Specimen: Body Fluid from Heel, Right Special Requests LT FOOT Special Requests Testing performed at [facility];[address] [place] [address];[place] [address] RESULT -- 1+ ENTEROCOCCUS FAECALIS Aminoglycosides (except for high-level resistance testing), cephalosporins, clindamycin, an d trimethoprim-sulfamethoxazole may appear active in vitro but they are not effective clinic ally. RESULT -- 1+ ENTEROBACTER CLOACAE COMPLEX RESULT -- 1+ STAPHYLOCOCCUS AUREUS RESULT SUSCEPTIBILITY TO FOLLOW RESULT Testing performed at [facility], [address] [place] [address] Susceptibility Enterococcus faecalis (1) Antibiotic Interpretation Microscan [...] Sensitive SUSCEPTIBLE JESSICA Preliminary Testing performed at [facility], [address] [place] [address], [place] [address] Culture, Wound, Superficial [[id number]] Collected: 04/06/191545 Order Status: Completed Lab Status: Final result Updated: 04/08/1937 Specimen: Body Fluid from Heel, Right Special Requests RIGHT FOOT Special Requests Testing performed at [facility];[address] [place] [address] 81423 RESULT -- 1+ NORMAL SKIN CELSA ISOLATED RESULT NO FURTHER WORKUP RESULT Testing performed at [facility], [address] [place] [address] 46950 Comment: Testing performed at [facility], [address] [place] [address] 50056 Culture, Blood [[id number]] Collected: 04/06/19337 Order Status: Completed Lab Status: Preliminary result Updated: 04/07/19812 Specimen: Peripheral Blood Special Requests R WRIST Special Requests Testing performed at [facility];[address] [place] [address] 80392 RESULT NO GROWTH AT THIS TIME RESULT Testing performed at [facility], [address] [place] [address] 32015 Comment: Testing performed at [facility], [address] [place] [address] 96293 Culture, Blood [[id number]] Collected: 04/06/19330 Order Status: Completed Lab Status: Preliminary result Updated: 04/07/19812 Specimen: Peripheral Blood Special Requests L WRIST Special Requests Testing performed at [facility];[address] [place] [address] 17678 RESULT NO GROWTH AT THIS TIME RESULT Testing performed at [facility], [address] [place] [address] 34668 Comment: Testing performed at [facility], [address] [place] [address] 29603 Microbiology Results (72 hrs) No results found [...] this note might be different from the [facility] Service: Urology Progress Note Hospital Day: [...] lung volumes done for scoliosis. Signed by: Madisno Acosta C. Mark Sign Date/Time: 04/08/2019 9:32 [...] of congestive failure. Signed by: Madison Solis [facility] Sign Date/Time: 04/09/2019 9:25 AM [...] essential h ypertension, insulin-dependent diabetes, history of GA, GERD, ischemic stroke, diffuse signi ficant peripheral [...] MD - 04/09/2019 6:[address] [facility] Service: Urology Progress Note Hospital Day: LOS: 3 days Post-Op Day: * No surgery found * SUBJECTIVE Events Overnight: This 74-year-old gentleman with a known history of insulin-dependen t diabetes mellitus, advanced peripheral vascular disease, osteomyelitis of right foot, diab etic foot ulcers which are significant and advanced in both feet, left hemiparesis, essentia l hypertension, hyperkalemia, history of GERD and non-STEMI GA, history of bacteremia, histo ry of stroke. [...] Color, UA STRAW Clarity, UA CLEAR Specific [place], Urine 1.006 1.002 - 1.030 Leukocyte esterase, [...] of congestive failure. Signed by: Madison Solis, [facility] Sign Date/Time: 04/09/2019 9:25 AM [...] longstanding history of diabetes, hypertension, GERD, ac [place] left hemiparesis, essential hypertension and very advanced [...] this note might be different from the [facility] Service: Vascular Surgery Progress Note SUBJECTIVE Patient Summary: 74 y.o. man with complex medical issues and LE ischemic ulcers, he wa s recently admitted to the [facility] from 03/28/19 to 04/04/19 where he was treated/ diagnosed with systolic heart failure, type 2 GA/NSTEMI, SHAE, ARF. O2 desaturation brought him from SNF to [facility] and current admission today with CHF and [...] will have him scheduled for 04/12/2019 at [facility] [employer] Strategy [employer] for his first leg, then will plan [...] Hospitalist Progress Note Reagan Shepard 74 y.o. [id number] male Jamar Manuel MD Hospital Day: [facility] to [facility] emergency department with worsening shortness of [...] 04/09/2019 1044 Gross per 24 hour Intake 93460 ml Output 9850 ml Net 856 ml [...] received 8 days of IV antibiotic at [facility] discharged home on on Augmentin readmitted on at [facility] and started on Rocephin after sending 2 [...] might be different from the o riginal. [facility] Service: Podiatry Progress Note Hospital Day: LOS: 3 days Post-Op Day: * No surgery found * SUBJECTIVE Patient Summary: The patient is 74 y.o. male with significant cardiac and IDDM2 past medical history with recent admissions to [facility] where he was found to have el evated troponin level and he became decompensated and desaturated and was transferred to [facility] for a higher level of [...] Ady Mata RN - 04/08/2019 9:49 PM [id number]: pt a/o to all, vss. cbi in [...] Hospitalist Progress Note Reagan Shepard 74 y.o. [id number] male Jamar Manuel MD Hospital Day: [...] [facility] who went back to [facility] emergency department with worsening shortness of [...] received 8 days of IV antibiotic at [facility] discharged home on on Augmentin readmitted on at [facility] and started on Rocephin after sending 2 [...] might be different from th e original. [facility] Service: Cardiology Progress Note Hospital Day: [...] Nandini Barboza RN - 04/07/2019 10:48 PM [id number]: pt a/o to all, occasionally forgetful, vss. [...] Hospitalist Progress Note Reagan Shepard 74 y.o. [id number] male Jamar Manuel MD Hospital Day: [...] [facility] who went back to [facility] emergency department with worsening shortness of [...] received 8 days of IV antibiotic at [facility] discharged home on on Augmentin readmitted on at [facility] and started on Rocephin after sending 2 [...] might be different from th e original. [facility] Service: Cardiology Progress Note Hospital Day: [...] Andrés Novoa RN - 04/06/2019 10:15 AM [facility] Service: Wound/Ostomy Care Progress Note Wound [...] | | | right foot ([facility]) | 04/20/2019 until | | | | | | 04/20/2020 | + +---------+--------+ + + | Comprehensive | Lab | Routin | Other | Weekly for 2 | | Metabolic Panel | | e | osteomyelitis of | Occurrences starting | | | | | right foot ([facility]) | 04/20/2019 until | | | | | | 04/20/2020 | + +---------+--------+ + + | C-Reactive Protein | Lab | Routin | Other | Weekly for 6 | | | | e | osteomyelitis of | Occurrences starting | | | | | right foot ([facility]) | 04/20/2019 until | | | | | | 04/20/2020 | + +---------+--------+ + + | Sedimentation Rate | Lab | Routin | Other | Weekly for 6 | | | | e | osteomyelitis of | Occurrences starting | | | | | right foot ([facility]) | 04/20/2019 until | | [...] | | | | | PST | ([facility]) Peripheral | | | | | | vascular disease | | | | | | ([facility]) Other | | | | | | osteomyelitis of | | | | | | right foot ([facility]) | | | | | | Essential | | | | | | hypertension Acute | | | | | | left hemiparesis | | | | | | ([facility]) | | + +--------+ + [...] | | | | | performed at [facility];[address] | | | | | | [address];[place], [place] | | | | | | [address] | | | | + + + + + + + + | Specimen | + + | Blood | + + + + + + + | Performing | Address | City/State/Zipcode | Phone Number | | Organization | | | | + + + + + | [facility] | [address] | [place] [address] | [phone] | + + + + + POC [...] | | | POC | performed at [facility];[address] | | LABORATORY | | | | [address];[place], [place] | | | | | | [address] | | | | + + + + + + + + | Specimen | + + | | + + + + + + + | Performing | Address | City/State/Zipcode | Phone Number | | Organization | | | | + + + + + | [facility] | [address] | [place] [address] | [phone] | + + + + + POC [...] | | | POC | performed at [facility];[address] | | LABORATORY | | | | [address];[place] | | | | | | [address] | | | | + + + + + + + + | Specimen | + + | | + + + + + + + | Performing | Address | City/State/Zipcode | Phone Number | | Organization | | | | + + + + + | [facility] | [address] | [place] [address] | [phone] | + + + + + POC Glucose (04/21/2019 5:12 AM PST) + + + + + + | Component | Value | Ref Range | Performed | Pathologist | | | | | At | Signature | + + + + + + | Glucose, | 146 (H)Comment: Testing | 65 - 99 mg/dL | [facility] | | | POC | performed at [facility];[address] | | LABORATORY | | | | [address];[place], [place] | | | | | | [address] | | | | + + + + + + + + | Specimen | + + | | + + + + + + + | Performing | Address | City/State/Zipcode | Phone Number | | Organization | | | | + + + + + | [facility] | [address] | [place] [address] | [phone] | + + + + + POC [...] | | | POC | performed at [facility];[address] | | LABORATORY | | | | [address];[place] | | | | | | [address] | | | | + + + + + + + + | Specimen | + + | | + + + + + + + | Performing | Address | City/State/Zipcode | Phone Number | | Organization | | | | + + + + + | [facility] | [address] | [place] [address] | [phone] | + + + + + POC Glucose (04/20/2019 5:30 PM PST) + + + + + + | Component | Value | Ref Range | Performed | Pathologist | | | | | At | Signature | + + + + + + | Glucose, | 220 (H)Comment: Testing | 65 - 99 mg/dL | [facility] | | | POC | performed at [facility];[address] | | LABORATORY | | | | [address];[place] | | | | | | [address] | | | | + + + + + + + + | Specimen | + + | | + + + + + + + | Performing | Address | City/State/Zipcode | Phone Number | | Organization | | | | + + + + + | [facility] | [address] | [place] [address] | [phone] | + + + + + POC Glucose (04/20/2019 5:04 PM PST) + + + + + + | Component | Value | Ref Range | Performed | Pathologist | | | | | At | Signature | + + + + + + | Glucose, | 199 (H)Comment: Testing | 65 - 99 mg/dL | [facility] | | | POC | performed at [facility];[address] | | LABORATORY | | | | [address];[place] | | | | | | [address] | | | | + + + + + + + + | Specimen | + + | | + + + + + + + | Performing | Address | City/State/Zipcode | Phone Number | | Organization | | | | + + + + + | [facility] | [address] | [place] [address] | [phone] | + + + + + POC [...] | | | POC | performed at [facility];[address] | | LABORATORY | | | | [address];[place], [place] | | | | | | [address] | | | | + + + + + + + + | Specimen | + + | | + + + + + + + | Performing | Address | City/State/Zipcode | Phone Number | | Organization | | | | + + + + + | [facility] | [address] | [place] [address] | [phone] | + + + + + Vancomycin Level (04/20/2019 12:39 PM PST) + + + + + + | Component | Value | Ref Range | Performed | Pathologist | | | | | At | Signature | + + + + + + | Vancomycin | 18.3Comment: Testing | ug/mL | [facility] | | | Random, | performed at [facility];[address] | | LABORATORY | | | Serum | [address];[place] | | | | | | [address] | | | | + + + + + + + + | Specimen | + + | Blood | + + + + + + + | Performing | Address | City/State/Zipcode | Phone Number | | Organization | | | | + + + + + | [facility] | [address] | [place] [address] | [phone] | + + + + + POC Glucose (04/20/2019 8:58 AM PST) + + + + + + | Component | Value | Ref Range | Performed | Pathologist | | | | | At | Signature | + + + + + + | Glucose, | 244 (H)Comment: Testing | 65 - 99 mg/dL | [facility] | | | POC | performed at [facility];[address] | | LABORATORY | | | | [address];[place] | | | | | | [address] | | | | + + + + + + + + | Specimen | + + | | + + + + + + + | Performing | Address | City/State/Zipcode | Phone Number | | Organization | | | | + + + + + | [facility] | [address] | [place] [address] | [phone] | + + + + + POC Glucose (04/20/2019 8:16 AM PST) + + + + + + | Component | Value | Ref Range | Performed | Pathologist | | | | | At | Signature | + + + + + + | Glucose, | 300 (H)Comment: Testing | 65 - 99 mg/dL | [facility] | | | POC | performed at [facility];[address] | | LABORATORY | | | | [address];[place], [place] | | | | | | [address] | | | | + + + + + + + + | Specimen | + + | | + + + + + + + | Performing | Address | City/State/Zipcode | Phone Number | | Organization | | | | + + + + + | [facility] | [address] | [place] [address] | [phone] | + + + + + POC [...] | | | POC | performed at [facility];[address] | | LABORATORY | | | | [address];[place] | | | | | | [address] | | | | + + + + + + + + | Specimen | + + | | + + + + + + + | Performing | Address | City/State/Zipcode | Phone Number | | Organization | | | | + + + + + | [facility] | [address] | [place] [address] | [phone] | + + + + + POC [...] | | | POC | performed at [facility];[address] | | LABORATORY | | | | [address];[place], [place] | | | | | | [address] | | | | + + + + + + + + | Specimen | + + | | + + + + + + + | Performing | Address | City/State/Zipcode | Phone Number | | Organization | | | | + + + + + | [facility] | [address] | [place] [address] | [phone] | + + + + + POC Glucose (04/19/2019 12:44 PM PST) + + + + + + | Component | Value | Ref Range | Performed | Pathologist | | | | | At | Signature | + + + + + + | Glucose, | 209 (H)Comment: Testing | 65 - 99 mg/dL | [facility] | | | POC | performed at [facility];[address] | | LABORATORY | | | | [address];[place] | | | | | | [address] | | | | + + + + + + + + | Specimen | + + | | + + + + + + + | Performing | Address | City/State/Zipcode | Phone Number | | Organization | | | | + + + + + | [facility] | [address] | [place] [address] | [phone] | + + + + + POC Glucose (04/19/2019 8:13 AM PST) + + + + + + | Component | Value | Ref Range | Performed | Pathologist | | | | | At | Signature | + + + + + + | Glucose, | 176 (H)Comment: Testing | 65 - 99 mg/dL | [facility] | | | POC | performed at [facility];[address] | | LABORATORY | | | | [address];[place], [place] | | | | | | [address] | | | | + + + + + + + + | Specimen | + + | | + + + + + + + | Performing | Address | City/State/Zipcode | Phone Number | | Organization | | | | + + + + + | [facility] | [address] | [place] [address] | [phone] | + + + + + Basic [...] | | | | | performed at [facility], [address] | | | | | | [facility], | | | | | | [place] [address] | | | | + + + + + + + + | Specimen | + + | Blood | + + + + + + + | Performing | Address | City/State/Zipcode | Phone Number | | Organization | | | | + + + + + | [facility] | [address] | [place] [address] | [phone] | + + + + + CBC [...] | | | | | performed at [facility], [address] | | | | | | [facility], | | | | | | [place] [address] | | | | | |MICRO | | | | | |NORMAL PLT MORPH | | | | | |Testing performed at [facility], [address] [facility], [place] [address] | | | | | | | | | | + + +---- + + + + + | Specimen | + + | Blood | + + + + + + + | Performing | Address | City/State/Zipcode | Phone Number | | Organization | | | | + + + + + | [facility] | [address] | [place] [address] | [phone] | + + + + + POC [...] | | | POC | performed at [facility];[address] | | LABORATORY | | | | [address];[place] | | | | | | [address] | | | | + + + + + + + + | Specimen | + + | | + + + + + + + | Performing | Address | City/State/Zipcode | Phone Number | | Organization | | | | + + + + + | [facility] | [address] | [place] [address] | [phone] | + + + + + POC Glucose (04/18/2019 9:02 PM PST) + + + + + + | Component | Value | Ref Range | Performed | Pathologist | | | | | At | Signature | + + + + + + | Glucose, | 295 (H)Comment: Testing | 65 - 99 mg/dL | [facility] | | | POC | performed at [facility];[address] | | LABORATORY | | | | [address];[place] | | | | | | [address] | | | | + + + + + + + + | Specimen | + + | | + + + + + + + | Performing | Address | City/State/Zipcode | Phone Number | | Organization | | | | + + + + + | [facility] | [address] | [place] [address] | [phone] | + + + + + POC Glucose (04/18/2019 8:01 PM PST) + + + + + + | Component | Value | Ref Range | Performed | Pathologist | | | | | At | Signature | + + + + + + | Glucose, | 245 (H)Comment: Testing | 65 - 99 mg/dL | [facility] | | | POC | performed at [facility];[address] | | LABORATORY | | | | [address];[place] | | | | | | [address] | | | | + + + + + + + + | Specimen | + + | | + + + + + + + | Performing | Address | City/State/Zipcode | Phone Number | | Organization | | | | + + + + + | [facility] | [address] | [place] [address] | [phone] | + + + + + POC Glucose (04/18/2019 6:08 PM PST) + + + + + + | Component | Value | Ref Range | Performed | Pathologist | | | | | At | Signature | + + + + + + | Glucose, | 181 (H)Comment: Testing | 65 - 99 mg/dL | [facility] | | | POC | performed at [facility];[address] | | LABORATORY | | | | [address];[place], [place] | | | | | | [address] | | | | + + + + + + + + | Specimen | + + | | + + + + + + + | Performing | Address | City/State/Zipcode | Phone Number | | Organization | | | | + + + + + | [facility] | [address] | [place] [address] | [phone] | + + + + + POC [...] | | | POC | performed at [facility];[address] | | LABORATORY | | | | [address];[place], [place] | | | | | | [address] | | | | + + + + + + + + | Specimen | + + | | + + + + + + + | Performing | Address | City/State/Zipcode | Phone Number | | Organization | | | | + + + + + | [facility] | [address] | [place] [address] | [phone] | + + + + + NM [...] Testing | 65 - 99 mg/dL | [facility] | | | POC | performed at [facility];[address] | | LABORATORY | | | | [address];[place] | | | | | | [address] | | | | + + + + + + + + | Specimen | + + | | + + + + + + + | Performing | Address | City/State/Zipcode | Phone Number | | Organization | | | | + + + + + | [facility] | [address] | [place] [address] | [phone] | + + + + + Basic [...] | | | | | performed at [facility];[address] | | | | | | [address];[place], [place] | | | | | | [address] | | | | + + + + + + + + | Specimen | + + | Blood | + + + + + + + | Performing | Address | City/State/Zipcode | Phone Number | | Organization | | | | + + + + + | [facility] | [address] | [place] [address] | [phone] | + + + + + CBC [...] | | | Estimate | performed at [facility] | | LABORATORY | | | | [address];[place] | | | | | | [address] | | | | + + + + + + + + | Specimen | + + | Blood | + + + + + + + | Performing | Address | City/State/Zipcode | Phone Number | | Organization | | | | + + + + + | [facility] | [address] | [place] [address] | [phone] | + + + + + POC Glucose (04/17/2019 8:41 PM PST) + + + + + + | Component | Value | Ref Range | Performed | Pathologist | | | | | At | Signature | + + + + + + | Glucose, | 183 (H)Comment: Testing | 65 - 99 mg/dL | [facility] | | | POC | performed at [facility];[address] | | LABORATORY | | | | [address];[place], [place] | | | | | | [address] | | | | + + + + + + + + | Specimen | + + | | + + + + + + + | Performing | Address | City/State/Zipcode | Phone Number | | Organization | | | | + + + + + | [facility] | [address] | [place] [address] | [phone] | + + + + + POC [...] | | | POC | performed at [facility];[address] | | LABORATORY | | | | [address];[place] | | | | | | [address] | | | | + + + + + + + + | Specimen | + + | | + + + + + + + | Performing | Address | City/State/Zipcode | Phone Number | | Organization | | | | + + + + + | [facility] | [address] | [place] [address] | [phone] | + + + + + Vancomycin, Trough (04/17/2019 12:30 PM PST) + + + + + + | Component | Value | Ref Range | Performed | Pathologist | | | | | At | Signature | + + + + + + | Vancomycin, | 17.2Comment: 15 to 20 | 10 - 20 ug/mL | [facility] | | | Trough | ug/mL for [...] | | | | | performed at [facility];[address] | | | | | | [address];[place] | | | | | | [address] | | | | + + + + + + + + | Specimen | + + | Blood | + + + + + + + | Performing | Address | City/State/Zipcode | Phone Number | | Organization | | | | + + + + + | [facility] | [address] | [place] [address] | [phone] | + + + + + POC [...] | | | POC | performed at [facility];[address] | | LABORATORY | | | | [address];[place] | | | | | | [address] | | | | + + + + + + + + | Specimen | + + | | + + + + + + + | Performing | Address | City/State/Zipcode | Phone Number | | Organization | | | | + + + + + | [facility] | [address] | [place] [address] | [phone] | + + + + + POC [...] | | | POC | performed at [facility];[address] | | LABORATORY | | | | [address];[place] | | | | | | [address] | | | | + + + + + + + + | Specimen | + + | | + + + + + + + | Performing | Address | City/State/Zipcode | Phone Number | | Organization | | | | + + + + + | [facility] | [address] | [place] [address] | [phone] | + + + + + POC [...] | | | POC | performed at [facility];[address] | | LABORATORY | | | | [address];[place], [place] | | | | | | [address] | | | | + + + + + + + + | Specimen | + + | | + + + + + + + | Performing | Address | City/State/Zipcode | Phone Number | | Organization | | | | + + + + + | [facility] | [address] [facility] | [place] [address] | [phone] | + + + + + Basic [...] | | | | | performed at [facility], [address] | | | | | | [facility], | | | | | | [place] [address] | | | | + + + + + + + + | Specimen | + + | Blood | + + + + + + + | Performing | Address | City/State/Zipcode | Phone Number | | Organization | | | | + + + + + | [facility] | [address] | [place] [address] | [phone] | + + + + + CBC [...] | | | | | performed at [facility], [address] | | | | | | [facility], | | | | | | [place] [address] | | | | | |MICRO | | | | | |NORMAL PLT MORPH | | | | | |Testing performed at [facility], [address] [facility], [place] [address] | | | | | | | | | | + + +---- + + + + + | Specimen | + + | Blood | + + + + + + + | Performing | Address | City/State/Zipcode | Phone Number | | Organization | | | | + + + + + | [facility] | [address] | [place] [address] | [phone] | + + + + + POC Glucose (04/16/2019 8:57 PM PST) + + + + + + | Component | Value | Ref Range | Performed | Pathologist | | | | | At | Signature | + + + + + + | Glucose, | 96Comment: Testing | 65 - 99 mg/dL | [facility] | | | POC | performed at [facility];[address] | | LABORATORY | | | | [address];[place] | | | | | | [address] | | | | + + + + + + + + | Specimen | + + | | + + + + + + + | Performing | Address | City/State/Zipcode | Phone Number | | Organization | | | | + + + + + | [facility] | [address] | [place] [address] | [phone] | + + + + + POC Glucose (04/16/2019 4:39 PM PST) + + + + + + | Component | Value | Ref Range | Performed | Pathologist | | | | | At | Signature | + + + + + + | Glucose, | 192 (H)Comment: Testing | 65 - 99 mg/dL | [facility] | | | POC | performed at [facility];[address] | | LABORATORY | | | | [address];[place], [place] | | | | | | [address] | | | | + + + + + + + + | Specimen | + + | | + + + + + + + | Performing | Address | City/State/Zipcode | Phone Number | | Organization | | | | + + + + + | [facility] | [address] | [place] [address] | [phone] | + + + + + POC [...] | | | POC | performed at [facility];[address] | | LABORATORY | | | | [address];[place], [place] | | | | | | [address] | | | | + + + + + + + + | Specimen | + + | | + + + + + + + | Performing | Address | City/State/Zipcode | Phone Number | | Organization | | | | + + + + + | [facility] | [address] | [place] [address] | [phone] | + + + + + POC Glucose (04/16/2019 7:36 AM PST) + + + + + + | Component | Value | Ref Range | Performed | Pathologist | | | | | At | Signature | + + + + + + | Glucose, | 100 (H)Comment: Testing | 65 - 99 mg/dL | [facility] | | | POC | performed at [facility];[address] | | LABORATORY | | [address];[place], [place] | | | | | | [address] | | | | + + + + + + + + | Specimen | + + | | + + + + + + + | Performing | Address | City/State/Zipcode | Phone Number | | Organization | | | | + + + + + | [facility] | [address] | [place] [address] | [phone] | + + + + + CBC [...] | | | | | performed at [facility], [address] | | | | | | [facility], | | | | | | [place] [address] | | | | | |MICRO | | | | | |NORMAL PLT MORPH | | | | | |Testing performed at [facility], [address] [place] [address] | | | | | | | | | | + + +---- + + + + + | Specimen | + + | Blood | + + + + + + + | Performing | Address | City/State/Zipcode | Phone Number | | Organization | | | | + + + + + | [facility] | [address] | [place] [address] | [phone] | + + + + + Basic [...] | >60Comment: GFR <60: | >60 | [facility] | | | GFR | CHRONIC KIDNEY [...] | | | | | performed at [facility], [address] | | | | | | [facility], | | | | | | [place] [address] | | | | + + + + + + + + | Specimen | + + | Blood | + + + + + + + | Performing | Address | City/State/Zipcode | Phone Number | | Organization | | | | + + + + + | [facility] | [address] | [place] [address] | [phone] | + + + + + POC [...] | | | POC | performed at [facility];[address] | | LABORATORY | | | | [address];[place] | | | | | | [address] | | | | + + + + + + + + | Specimen | + + | | + + + + + + + | Performing | Address | City/State/Zipcode | Phone Number | | Organization | | | | + + + + + | [facility] | [address] | [place] [address] | [phone] | + + + + + POC Glucose (04/15/2019 4:51 PM PST) + + + + + + | Component | Value | Ref Range | Performed | Pathologist | | | | | At | Signature | + + + + + + | Glucose, | 239 (H)Comment: Testing | 65 - 99 mg/dL | [facility] | | | POC | performed at [facility];[address] | | LABORATORY | | | | [address];[place] | | | | | | [address] | | | | + + + + + + + + | Specimen | + + | | + + + + + + + | Performing | Address | City/State/Zipcode | Phone Number | | Organization | | | | + + + + + | [facility] | [address] | [place] [address] | [phone] | + + + + + POC [...] | | | POC | performed at [facility];[address] | | LABORATORY | | | | [address];[place], [place] | | | | | | [address] | | | | + + + + + + + + | Specimen | + + | | + + + + + + + | Performing | Address | City/State/Zipcode | Phone Number | | Organization | | | | + + + + + | [facility] | [address] | [place] [address] | [phone] | + + + + + Type [...] + + + | BB BAND | [id number] | | [facility] | | | | | | LABORATORY | | + + + + + + | UNIT # | [id number] | | [facility] | | | | [...] + + + | UNIT # | [id number] | | [facility] | | | | [...] + + + | UNIT # | [id number] | | [facility] | | | | [...] | | | RESULT | performed at [facility];[address] | | LABORATORY | | | | [address];[place], [place] | | | | | | [address] | | | | + + + + + + + + | Specimen | + + | Blood | + + + + + + + | Performing | Address | City/State/Zipcode | Phone Number | | Organization | | | | + + + + + | [facility] | [address] | [place] [address] | [phone] | + + + + + Red [...] | [facility] | | | COMMENT | [facility];[address] | | LABORATORY | | | | [address];[place] [address] | | | | + + + + + + + + | Specimen | + + | | + + + + + + + | Performing | Address | City/State/Zipcode | Phone Number | | Organization | | | | + + + + + | [facility] | [address] | [place] [address] | [phone] | + + + + + POC Glucose (04/15/2019 9:11 AM PST) + + + + + + | Component | Value | Ref Range | Performed | Pathologist | | | | | At | Signature | + + + + + + | Glucose, | 165 (H)Comment: Testing | 65 - 99 mg/dL | [facility] | | | POC | performed at [facility];[address] | | LABORATORY | | | | [address];[place] | | | | | | [address] | | | | + + + + + + + + | Specimen | + + | | + + + + + + + | Performing | Address | City/State/Zipcode | Phone Number | | Organization | | | | + + + + + | [facility] | [address] | [place] [address] | [phone] | + + + + + Vancomycin, [...] | | | | | performed at [facility];[address] | | | | | | [address];[place], [place] | | | | | | [address] | | | | + + + + + + + + | Specimen | + + | Blood | + + + + + + + | Performing | Address | City/State/Zipcode | Phone Number | | Organization | | | | + + + + + | [facility] | [address] | [place] [address] | [phone] | + + + + + CBC [...] | | | Estimate | performed at [facility];[address] | | LABORATORY | | | | [address];[place] | | | | | | [address] | | | | + + + + + + + + | Specimen | + + | Blood | + + + + + + + | Performing | Address | City/State/Zipcode | Phone Number | | Organization | | | | + + + + + | [facility] | [address] | [place] [address] | [phone] | + + + + + Basic [...] | | | | | | MDRD [facility] traceable | | | | | | equation.Testing | | | | | | performed at [facility];[address] | | | | | | [facility];[place], [place] | | | | | | [address] | | | | + + + + + + + + | Specimen | + + | Blood | + + + + + + + | Performing | Address | City/State/Zipcode | Phone Number | | Organization | | | | + + + + + | [facility] | [address] [facility] | [place] [address] | [phone] | + + + + + POC [...] | | | POC | performed at [facility];[address] | | LABORATORY | | | | [address];[place], [place] | | | | | | [address] | | | | + + + + + + + + | Specimen | + + | | + + + + + + + | Performing | Address | City/State/Zipcode | Phone Number | | Organization | | | | + + + + + | [facility] | [address] | [place] [address] | [phone] | + + + + + POC Glucose (04/14/2019 4:58 PM PST) + + + + + + | Component | Value | Ref Range | Performed | Pathologist | | | | | At | Signature | + + + + + + | Glucose, | 175 (H)Comment: Testing | 65 - 99 mg/dL | [facility] | | | POC | performed at [facility];[address] | | LABORATORY | | | | [address];[place], [place] | | | | | | [address] | | | | + + + + + + + + | Specimen | + + | | + + + + + + + | Performing | Address | City/State/Zipcode | Phone Number | | Organization | | | | + + + + + | [facility] | [address] | [place] [address] | [phone] | + + + + + POC Glucose (04/14/2019 11:43 AM PST) + + + + + + | Component | Value | Ref Range | Performed | Pathologist | | | | | At | Signature | + + + + + + | Glucose, | 153 (H)Comment: Testing | 65 - 99 mg/dL | [facility] | | | POC | performed at [facility];[address] | | LABORATORY | | | | [address];[place] | | | | | | [address] | | | | + + + + + + + + | Specimen | + + | | + + + + + + + | Performing | Address | City/State/Zipcode | Phone Number | | Organization | | | | + + + + + | [facility] | [address] | [place] [address] | [phone] | + + + + + ECHO [...] Testing | 65 - 99 mg/dL | [facility] | | | POC | performed at [facility];[address] | | LABORATORY | | | | [address];[place] | | | | | | [address] | | | | + + + + + + + + | Specimen | + + | | + + + + + + + | Performing | Address | City/State/Zipcode | Phone Number | | Organization | | | | + + + + + | [facility] | [address] | [place] [address] | [phone] | + + + + + B [...] | | LABORATORY | | | | [facility];[address] [facility] | | | | | | Blvd;[place] [address] | | | | + + + + + + + + | Specimen | + + | | + + + + + + + | Performing | Address | City/State/Zipcode | Phone Number | | Organization | | | | + + + + + | [facility] | [address] | [place] [address] | [phone] | + + + + + CBC [...] | | | Estimate | performed at [facility];[address] | | LABORATORY | | | | [address];[place] | | | | | | [address] | | | | + + + + + + + + | Specimen | + + | | + + + + + + + | Performing | Address | City/State/Zipcode | Phone Number | | Organization | | | | + + + + + | [facility] | [address] | [place] [address] | [phone] | + + + + + Troponin I (04/14/2019 6:29 AM PST) + + + + + + | Component | Value | Ref Range | Performed | Pathologist | | | | | At | Signature | + + + + + + | Troponin I | 0.014Comment: 0.04 | 0.00 - 0.04 | [facility] | | | | ng/mL or less [...] at | | | | | | [facility];[address] [place] [address] | | | | | | Bl;[place] [address] | | | | + + + + + + + + | Specimen | + + | Blood | + + + + + + + | Performing | Address | City/State/Zipcode | Phone Number | | Organization | | | | + + + + + | [facility] | [address] | [place] [address] | [phone] | + + + + + Basic [...] | | | | | performed at [facility];[address] | | | | | | [address];[place], [place] | | | | | | [address] | | | | + + + + + + + + | Specimen | + + | Blood | + + + + + + + | Performing | Address | City/State/Zipcode | Phone Number | | Organization | | | | + + + + + | [facility] | [address] | [place] [address] | [phone] | + + + + + Vancomycin Level (04/14/2019 4:53 AM PST) + + + + + + | Component | Value | Ref Range | Performed | Pathologist | | | | | At | Signature | + + + + + + | Vancomycin | 20.6Comment: Testing | ug/mL | [facility] | | | Random, | performed at [facility];[address] | | LABORATORY | | | Serum | [address];[place] | | | | | | [address] | | | | + + + + + + + + | Specimen | + + | Blood | + + + + + + + | Performing | Address | City/State/Zipcode | Phone Number | | Organization | | | | + + + + + | [facility] | [address] | [place] [address] | [phone] | + + + + + POC [...] | | | POC | performed at [facility];[address] | | LABORATORY | | | | [address];[place], [place] | | | | | | [address] | | | | + + + + + + + + | Specimen | + + | | + + + + + + + | Performing | Address | City/State/Zipcode | Phone Number | | Organization | | | | + + + + + | [facility] | [address] | [place] [address] | [phone] | + + + + + Troponin I (04/14/2019 1:19 AM PST) + + + + + + | Component | Value | Ref Range | Performed | Pathologist | | | | | At | Signature | + + + + + + | Troponin I | 0.015Comment: 0.04 | 0.00 - 0.04 | [facility] | | | | ng/mL or less [...] at | | | | | | [facility];[address] [facility] | | | | | | [facility];[place] [address] | | | | + + + + + + + + | Specimen | + + | Blood | + + + + + + + | Performing | Address | City/State/Zipcode | Phone Number | | Organization | | | | + + + + + | [facility] | [address] | [place] [address] | [phone] | + + + + + ECG [...] | | | POC | performed at [facility];[address] | | LABORATORY | | | | [address];[place], [place] | | | | | | [address] | | | | + + + + + + + + | Specimen | + + | | + + + + + + + | Performing | Address | City/State/Zipcode | Phone Number | | Organization | | | | + + + + + | [facility] | [address] | [place] [address] | [phone] | + + + + + POC Glucose (04/13/2019 4:19 PM PST) + + + + + + | Component | Value | Ref Range | Performed | Pathologist | | | | | At | Signature | + + + + + + | Glucose, | 109 (H)Comment: Testing | 65 - 99 mg/dL | [facility] | | | POC | performed at [facility];[address] | | LABORATORY | | | | [address];[place] | | | | | | [address] | | | | + + + + + + + + | Specimen | + + | | + + + + + + + | Performing | Address | City/State/Zipcode | Phone Number | | Organization | | | | + + + + + | [facility] | [address] | [place] [address] | [phone] | + + + + + XR [...] catheterization with right leg runoff4. 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 The patient was placed supine | | [...] sized to a 4 | | | [place] sheath. A Omni flush catheter was then [...] inserted over the catheter and the 4 [place] sheath was | | | removed. A 7 [place] destination sheath was then inserted over the [...] | | | POC | performed at [facility];[address] | | LABORATORY | | | | [address];[place] | | | | | | [address] | | | | + + + + + + + + | Specimen | + + | | + + + + + + + | Performing | Address | City/State/Zipcode | Phone Number | | Organization | | | | + + + + + | [facility] | [address] | [place] [address] | [phone] | + + + + + POC Glucose (04/13/2019 7:59 AM PST) + + + + + + | Component | Value | Ref Range | Performed | Pathologist | | | | | At | Signature | + + + + + + | Glucose, | 124 (H)Comment: Testing | 65 - 99 mg/dL | [facility] | | | POC | performed at [facility];[address] | | LABORATORY | | | | [address];[place] | | | | | | [address] | | | | + + + + + + + + | Specimen | + + | | + + + + + + + | Performing | Address | City/State/Zipcode | Phone Number | | Organization | | | | + + + + + | [facility] | [address] | [place] [address] | [phone] | + + + + + Basic [...] 8.2 (L) | 8.5 - 10.5 | [facility] | | | | | mg/dL | LABORATORY | | + + + + + + | Estimated | >60Comment: GFR <60: | >60 | [facility] | | | GFR | CHRONIC KIDNEY [...] Hospital, | | | | | | [place] [address] | | | | + + + + + + + + | Specimen | + + | Blood | + + + + + + + | Performing | Address | City/State/Zipcode | Phone Number | | Organization | | | | + + + + + | [facility] | [address] | [place] [address] | [phone] | + + + + + CBC [...] | | | | | performed at [facility], [address] | | | | | | [facility], | | | | | | [place] [address] | | | | | |MICRO | | | | | |NORMAL PLT MORPH | | | | | |Testing performed at [facility], [address] [facility], [place] [address] | | | | | | | | | | + + +---- + + + + + | Specimen | + + | Blood | + + + + + + + | Performing | Address | City/State/Zipcode | Phone Number | | Organization | | | | + + + + + | [facility] | [address] | [place] [address] | [phone] | + + + + + POC [...] | | | POC | performed at [facility];[address] | | LABORATORY | | | | [address];[place], [place] | | | | | | [address] | | | | + + + + + + + + | Specimen | + + | | + + + + + + + | Performing | Address | City/State/Zipcode | Phone Number | | Organization | | | | + + + + + | [facility] | [address] | [place] [address] | [phone] | + + + + + POC Glucose (04/12/2019 9:14 PM PST) + + + + + + | Component | Value | Ref Range | Performed | Pathologist | | | | | At | Signature | + + + + + + | Glucose, | 183 (H)Comment: Testing | 65 - 99 mg/dL | [facility] | | | POC | performed at [facility];[address] | | LABORATORY | | | | [address];[place] | | | | | | [address] | | | | + + + + + + + + | Specimen | + + | | + + + + + + + | Performing | Address | City/State/Zipcode | Phone Number | | Organization | | | | + + + + + | [facility] | [address] | [place] [address] | [phone] | + + + + + POC Glucose (04/12/2019 4:28 PM PST) + + + + + + | Component | Value | Ref Range | Performed | Pathologist | | | | | At | Signature | + + + + + + | Glucose, | 211 (H)Comment: Testing | 65 - 99 mg/dL | [facility] | | | POC | performed at [facility];[address] | | LABORATORY | | | | [address];[place] | | | | | | [address] | | | | + + + + + + + + | Specimen | + + | | + + + + + + + | Performing | Address | City/State/Zipcode | Phone Number | | Organization | | | | + + + + + | [facility] | [address] | [place] [address] | [phone] | + + + + + POC [...] | | | POC | performed at [facility];[address] | | LABORATORY | | | | [address];[place] | | | | | | [address] | | | | + + + + + + + + | Specimen | + + | | + + + + + + + | Performing | Address | City/State/Zipcode | Phone Number | | Organization | | | | + + + + + | [facility] | [address] | [place] [address] | [phone] | + + + + + POC [...] | | | POC | performed at [facility];[address] | | LABORATORY | | | | [address];[place] | | | | | | [address] | | | | + + + + + + + + | Specimen | + + | | + + + + + + + | Performing | Address | City/State/Zipcode | Phone Number | | Organization | | | | + + + + + | [facility] | [address] [facility] | [place] [address] | [phone] | + + + + + Basic [...] | | | | | performed at [facility], [address] | | | | | | [facility], | | | | | | [place] [address] | | | | + + + + + + + + | Specimen | + + | Blood | + + + + + + + | Performing | Address | City/State/Zipcode | Phone Number | | Organization | | | | + + + + + | [facility] | [address] | [place] [address] | [phone] | + + + + + CBC [...] | | | | | performed at [facility], [address] | | | | | | [facility], | | | | | | [place] [address] | | | | | |MICRO | | | | | |NORMAL PLT MORPH | | | | | |Testing performed at [facility], [address] [facility], [place] [address] | | | | | | | | | | + + +---- + + + + + | Specimen | + + | Blood | + + + + + + + | Performing | Address | City/State/Zipcode | Phone Number | | Organization | | | | + + + + + | [facility] | [address] | [place] [address] | [phone] | + + + + + POC Glucose (04/11/2019 9:20 PM PST) + + + + + + | Component | Value | Ref Range | Performed | Pathologist | | | | | At | Signature | + + + + + + | Glucose, | 199 (H)Comment: Testing | 65 - 99 mg/dL | [facility] | | | POC | performed at [facility];[address] | | LABORATORY | | | | [address];[place] | | | | | | [address] | | | | + + + + + + + + | Specimen | + + | | + + + + + + + | Performing | Address | City/State/Zipcode | Phone Number | | Organization | | | | + + + + + | [facility] | [address] | [place] [address] | [phone] | + + + + + POC [...] | | | POC | performed at [facility];[address] | | LABORATORY | | | | [address];[place], [place] | | | | | | [address] | | | | + + + + + + + + | Specimen | + + | | + + + + + + + | Performing | Address | City/State/Zipcode | Phone Number | | Organization | | | | + + + + + | [facility] | [address] | [place] [address] | [phone] | + + + + + POC [...] | | | POC | performed at [facility];[address] | | LABORATORY | | | | [address];[place], [place] | | | | | | [address] | | | | + + + + + + + + | Specimen | + + | | + + + + + + + | Performing | Address | City/State/Zipcode | Phone Number | | Organization | | | | + + + + + | [facility] | [address] | [place] [address] | [phone] | + + + + + IR [...] x 150 mm | | | angioplasty [id number]. Left SFA stenting using 7 x 120 mm | | | self-expanding stent SURGEON: Simba Cheng MD AUTOMATION ARCHITECT: None ANESTHESIA: | | | Moderate sedation [...] | | identified and brought to the Sales Strategy Manager. The patient was placed supine | | [...] sized to a 4 | | | [place] sheath. A Omni flush catheter was then [...] inserted over the catheter and the 4 [place] sheath was | | | removed. A 7 [place] destination sheath was then inserted over the [...] using a | | | Glidewire and [place] catheter. A 0.009 wire was then passed [...] crossed using a | | |Glidewire and [place] catheter. A 0.009 wire was then passed [...] Testing | 65 - 99 mg/dL | [facility] | | | POC | performed at [facility];[address] | | LABORATORY | | | | [address];[place] | | | | | | [address] | | | | + + + + + + + + | Specimen | + + | | + + + + + + + | Performing | Address | City/State/Zipcode | Phone Number | | Organization | | | | + + + + + | [facility] | [address] | [place] [address] | [phone] | + + + + + B Type Natriuretic Peptide (04/11/2019 5:48 AM PST) + + + + + + | Component | Value | Ref Range | Performed | Pathologist | | | | | At | Signature | + + + + + + | BNP | 220.45 (H)Comment: | 0 - 100 pg/mL | [facility] | | | | Testing performed at | | LABORATORY | | | | [facility];[address];[place] [address] | | | | + + + + + + + + | Specimen | + + | Blood | + + + + + + + | Performing | Address | City/State/Zipcode | Phone Number | | Organization | | | | + + + + + | [facility] | [address] | [place] [address] | [phone] | + + + + + Basic [...] | >60Comment: GFR <60: | >60 | [facility] | | | GFR | CHRONIC KIDNEY [...] | | | | | | MDRD IDNC traceable | | | | | | equation.Testing | | | | | | performed at [facility], [address] | | | | | [facility], | | | | | | [place] [address] | | | | + + + + + + + + | Specimen | + + | Blood | + + + + + + + | Performing | Address | City/State/Zipcode | Phone Number | | Organization | | | | + + + + + | [facility] | [address] | [place] [address] | [phone] | + + + + + CBC [...] | | | | | | at [facility], [address] | | | | | [employer], | | | | | | [place] [address] | | | | | |Testing performed at [facility], [address] [facility] [place] [address] | | | | | | | | | | + + +---- + + + + + | Specimen | + + | Blood | + + + + + + + | Performing | Address | City/State/Zipcode | Phone Number | | Organization | | | | + + + + + | [facility] | [address] | [place] [address] | [phone] | + + + + + POC Glucose (04/10/2019 9:22 PM PST) + + + + + + | Component | Value | Ref Range | Performed | Pathologist | | | | | At | Signature | + + + + + + | Glucose, | 127 (H)Comment: Testing | 65 - 99 mg/dL | [facility] | | | POC | performed at [facility];[address] | | LABORATORY | | | | Kiara Jaramillo;[place] | | | | | | [address] | | | | + + + + + + + + | Specimen | + + | | + + + + + + + | Performing | Address | City/State/Zipcode | Phone Number | | Organization | | | | + + + + + | [facility] | [address] | [place] [address] | [phone] | + + + + + POC [...] | | | POC | performed at [facility];[address] | | LABORATORY | | | | Kiara Jaramillo;[place] | | | | | | [address] | | | | + + + + + + + + | Specimen | + + | | + + + + + + + | Performing | Address | City/State/Zipcode | Phone Number | | Organization | | | | + + + + + | [facility] | [address] | [place] [address] | [phone] | + + + + + [place] [...] | | | POC | performed at [facility];[address] | | LABORATORY | | | | [address];[place] | | | | | | [address] | | | | + + + + + + + + | Specimen | + + | | + + + + + + + | Performing | Address | City/State/Zipcode | Phone Number | | Organization | | | | + + + + + | [facility] | [address] | [place] [address] | [phone] | + + + + + CBC [...] [facility] | | | | performed at [facility], [address] | | LABORATORY | | | | Loi [address]amillo, | | | | | | [place] [address] | | | | + + + + + + + + | Specimen | + + | Blood | + + + + + + + | Performing | Address | City/State/Zipcode | Phone Number | | Organization | | | | + + + + + | [facility] | [address] | [place] [address] | [phone] | + + + + + POC [...] | | | POC | performed at [facility];[address] | | LABORATORY | | | | [address];[place] | | | | | | [address] | | | | + + + + + + + + | Specimen | + + | | + + + + + + + | Performing | Address | City/State/Zipcode | Phone Number | | Organization | | | | + + + + + | [facility] | [address] | [place] [address] | [phone] | + + + + + POC Glucose (04/09/2019 5:06 PM PST) + + + + + + | Component | Value | Ref Range | Performed | Pathologist | | | | | At | Signature | + + + + + + | Glucose, | 169 (H)Comment: Testing | 65 - 99 mg/dL | [facility] | | | POC | performed at [facility];888 | | LABORATORY | | | | Kiara Jaramillo;[place] | | | | | | [address] | | | | + + + + + + + + | Specimen | + + | | + + + + + + + | Performing | Address | City/State/Zipcode | Phone Number | | Organization | | | | + + + + + | [facility] | [address] | [place] [address] | [phone] | + + + + + POC [...] | | | POC | performed at [facility];[address] | | LABORATORY | | | | [address];[place] | | | | | | [address] | | | | + + + + + + + + | Specimen | + + | | + + + + + + + | Performing | Address | City/State/Zipcode | Phone Number | | Organization | | | | + + + + + | [facility] | [address] | [place] [address] | [phone] | + + + + + XR [...] | | | Urine | performed at [facility], [address] | | LABORATORY | | | | Loi Jaramillo, | | | | | | [place] [address] | | | | + + + + + + + + | Specimen | + + | | + + + + + + + | Performing | Address | City/State/Zipcode | Phone Number | | Organization | | | | + + + + + | [facility] | [address] | [place] [address] | [phone] | + + + + + Urinalysis, [...] - 1.030 | [facility] | | | [place], | | | LABORATORY | | | [...] | + + + + + | [facility] | [address] | [place] [address] | [phone] | + + + + + Sedimentation Rate (04/09/2019 6:16 AM PST) + + + + + + | Component | Value | Ref Range | Performed | Pathologist | | | | | At | Signature | + + + + + + | ESR | 91 (H)Comment: Testing | 0 - 20 mm/Hr | [facility] | | | | performed at [facility], [address] | | LABORATORY | | | | Loi [address]amillo, | | | | | | [place] [address] | | | | + + + + + + + + | Specimen | + + | Blood | + + + + + + + | Performing | Address | City/State/Zipcode | Phone Number | | Organization | | | | + + + + + | [facility] | [address] | [place] [address] | [phone] | + + + + + CBC [...] [facility] | | | | performed at [facility], [address] | | LABORATORY | | | | [address] [facility] [address], | | | | | | [place] [address] | | | | + + + + + + + + | Specimen | + + | Blood | + + + + + + + | Performing | Address | City/State/Zipcode | Phone Number | | Organization | | | | + + + + + | [facility] | [address] | [place] [address] | [phone] | + + + + + Comprehensive [...] | | | | | | MDRD IDNC traceable | | | | | | equation.Testing | | | | | | performed at [facility], [address] | | | | | | [facility], | | | | | | [place] [address] | | | | + + + + + + + + | Specimen | + + | Blood | + + + + + + + | Performing | Address | City/State/Zipcode | Phone Number | | Organization | | | | + + + + + | [facility] | [address] | [place] [address] | [phone] | + + + + + POC Glucose (04/08/2019 10:09 PM PST) + + + + + + | Component | Value | Ref Range | Performed | Pathologist | | | | | At | Signature | + + + + + + | Glucose, | 168 (H)Comment: Testing | 65 - 99 mg/dL | [facility] | | | POC | performed at [facility];[address] | | LABORATORY | | | | [address];[place] | | | | | | [address] | | | | + + + + + + + + | Specimen | + + | | + + + + + + + | Performing | Address | City/State/Zipcode | Phone Number | | Organization | | | | + + + + + | [facility] | [address] | [place] [address] | [phone] | + + + + + Fecal Hemoglobin (04/08/2019 7:27 PM PST) + + + + + + | Component | Value | Ref Range | Performed | Pathologist | | | | | At | Signature | + + + + + + | FECAL | NEGATIVEComment: Testing | NEG | [facility] | | | OCCULT BLD | performed at [facility];[address] | | LABORATORY | | | | [address];[place], [place] | | | | | | [address] | | | | + + + + + + + + | Specimen | + + | Stool - Stool | | specimen (specimen) | + + + + + + + | Performing | Address | City/State/Zipcode | Phone Number | | Organization | | | | + + + + + | [facility] | [address] | [place] [address] | [phone] | + + + + + POC [...] | | | POC | performed at [facility];[address] | | LABORATORY | | | | Kiara Jaramillo;[place] | | | | | | [address] | | | | + + + + + + + + | Specimen | + + | | + + + + + + + | Performing | Address | City/State/Zipcode | Phone Number | | Organization | | | | + + + + + | [facility] | [address] | [place] [address] | [phone] | + + + + + XR [...] | | | POC | performed at [facility];[address] | | LABORATORY | | | | [address];[place] | | | | | | [address] | | | | + + + + + + + + | Specimen | + + | | + + + + + + + | Performing | Address | City/State/Zipcode | Phone Number | | Organization | | | | + + + + + | [facility] | [address] | [place] [address] | [phone] | + + + + + XR [...] Testing | 65 - 99 mg/dL | [facility] | | | POC | performed at [facility];[address] | | LABORATORY | | | | Kiara Jaramillo;[place] | | | | | | [address] | | | | + + + + + + + + | Specimen | + + | | + + + + + + + | Performing | Address | City/State/Zipcode | Phone Number | | Organization | | | | + + + + + | [facility] | [address] | [place] [address] | [phone] | + + + + + B [address] | | | | [address];[place] [address] | | | | + + + + + + + + | Specimen | + + | Blood | + + + + + + + | Performing | Address | City/State/Zipcode | Phone Number | | Organization | | | | + + + + + | [facility] | [address] | [place] [address] | [phone] | + + + + + CBC [...] | | | | | [place] [address] | | | | + + + + + + + + | Specimen | + + | Blood | + + + + + + + | Performing | Address | City/State/Zipcode | Phone Number | | Organization | | | | + + + + + | [facility] | [address] | [place] [address] | [phone] | + + + + + Comprehensive [...] | | | | | performed at [facility], [address] | | | | | | [facility], | | | | | | [place] [address] | | | | + + + + + + + + | Specimen | + + | Blood | + + + + + + + | Performing | Address | City/State/Zipcode | Phone Number | | Organization | | | | + + + + + | [facility] | [address] | [place] [address] | [phone] | + + + + + POC [...] | | | POC | performed at [facility];[address] | | LABORATORY | | | | Kiara Jaramillo;[place] | | | | | | [address] | | | | + + + + + + + + | Specimen | + + | | + + + + + + + | Performing | Address | City/State/Zipcode | Phone Number | | Organization | | | | + + + + + | [facility] | [address] [facility] | [place] [address] | [phone] | + + + + + POC [...] | | | POC | performed at [facility];[address] | | LABORATORY | | | | Kiaar Jaramillo;[place] | | | | | | [address] | | | | + + + + + + + + | Specimen | + + | | + + + + + + + | Performing | Address | City/State/Zipcode | Phone Number | | Organization | | | | + + + + + | [facility] | [address] | [place] [address] | [phone] | + + + + + POC Glucose (04/07/2019 12:40 PM PST) + + + + + + | Component | Value | Ref Range | Performed | Pathologist | | | | | At | Signature | + + + + + + | Glucose, | 252 (H)Comment: Testing | 65 - 99 mg/dL | [facility] | | | POC | performed at [facility];[address] | | LABORATORY | | | | [address];[place] | | | | | | [address] | | | | + + + + + + + + | Specimen | + + | | + + + + + + + | Performing | Address | City/State/Zipcode | Phone Number | | Organization | | | | + + + + + | [facility] | [address] | [place] [address] | [phone] | + + + + + XR [...] | | | POC | performed at [facility];[address] | | LABORATORY | | | | Kiara [address]amillo;[place] | | | | | | [address] | | | | + + + + + + + + | Specimen | + + | | + + + + + + + | Performing | Address | City/State/Zipcode | Phone Number | | Organization | | | | + + + + + | [facility] | [address] | [place] [address] | [phone] | + + + + + Magnesium (04/07/2019 5:02 AM PST) + + + + + + | Component | Value | Ref Range | Performed | Pathologist | | | | | At | Signature | + + + + + + | Magnesium | 2.1Comment: Testing | 1.7 - 2.4 mg/dL | [facility] | | | | performed at [facility], [address] | | LABORATORY | | | | [address], | | | | | | [place] [address] | | | | + + + + + + + + | Specimen | + + | Blood | + + + + + + + | Performing | Address | City/State/Zipcode | Phone Number | | Organization | | | | + + + + + | [facility] | [address] | [place] [address] | [phone] | + + + + + CBC [...] [facility] | | | | performed at [facility];[address] | | LABORATORY | | | | [address];[place], [place] | | | | | | [address] | | | | + + + + + + + + | Specimen | + + | Blood | + + + + + + + | Performing | Address | City/State/Zipcode | Phone Number | | Organization | | | | + + + + + | [facility] | [address] | [place] [address] | [phone] | + + + + + Comprehensive [...] | >60Comment: GFR <60: | >60 | [facility] | | | GFR | CHRONIC KIDNEY [...] | | | | | | MDRD IDNC traceable | | | | | | equation.Testing | | | | | | performed at [facility], [address] | | | | | | [facility], | | | | | | [place] [address] | | | | + + + + + + + + | Specimen | + + | Blood | + + + + + + + | Performing | Address | City/State/Zipcode | Phone Number | | Organization | | | | + + + + + | [facility] | [address] | [place] [address] | [phone] | + + + + + Iron, Total (04/07/2019 5:02 AM PST) + + + + + + | Component | Value | Ref Range | Performed | Pathologist | | | | | At | Signature | + + + + + + | Iron | 23 (L)Comment: Testing | 45 - 190 ug/dL | [facility] | | | | performed at [facility], [address] | | LABORATORY | | | | [address], | | | | | | [place] [address] | | | | + + + + + + + + | Specimen | + + | Blood | + + + + + + + | Performing | Address | City/State/Zipcode | Phone Number | | Organization | | | | + + + + + | [facility] | [address] | [place] [address] | [phone] | + + + + + POC [...] | | | POC | performed at [facility];[address] | | LABORATORY | | | | [address];[place] | | | | | | [address] | | | | + + + + + + + + | Specimen | + + | | + + + + + + + | Performing | Address | City/State/Zipcode | Phone Number | | Organization | | | | + + + + + | [facility] | [address] | [place] [address] | [phone] | + + + + + POC [...] | | | POC | performed at [facility];[address] | | LABORATORY | | | | [address];[place], [place] | | | | | | [address] | | | | + + + + + + + + | Specimen | + + | | + + + + + + + | Performing | Address | City/State/Zipcode | Phone Number | | Organization | | | | + + + + + | [facility] | [address] | [place] [address] | [phone] | + + + + + Culture, [...] | [facility] | | | Requests | [facility];[address] [facility] | | LABORATORY | | | | [address];[place] [address] | | | | + + + + + + | RESULT | 1+NORMAL SKIN CELSA | | [facility] | | | | ISOLATED | | LABORATORY | | | | | | | | + + + + + + | RESULT | NO FURTHER WORKUP | | [facility] | | | | | | LABORATORY | | + + + + + + | RESULT | Testing performed at | | [facility] | | | | [facility], [address] [facility] | | LABORATORY | | | | [place], [place] | | | | | | [id number]: Testing | | | | | | performed at [facility], [address] | | | | | | [address] [place], [place] | | | | | | [address] | | | | + + + + + + + + | Specimen | + + | Body Fluid - Entire | | heel (body | | structure) | + + + + + + + | Performing | Address | City/State/Zipcode | Phone Number | | Organization | | | | + + + + + | [facility] | [address] | [place] [address] | [phone] | + + + + + Culture, [...] | [facility] | | | Requests | [facility];[address] [place] [address] | | LABORATORY | | | | Blvd;[place] [address] | | | | + + + [...] Comment: Testing | | | performed at [facility], | | | [address], | | | [place] [address] | +---+ + + + + + + | Performing | Address | City/State/Zipcode | Phone Number | | Organization | | | | + + + + + | [facility] | [address] | [place] [address] | [phone] | + + + + + Ferritin (04/06/2019 2:30 PM PST) + + + + + + | Component | Value | Ref Range | Performed | Pathologist | | | | | At | Signature | + + + + + + | Ferritin | 62Comment: Testing | 11 - 450 ng/mL | [facility] | | | | performed at [facility], [address] | | LABORATORY | | | | [address], | | | | | | [place] [address] | | | | + + + + + + + + | Specimen | + + | Blood | + + + + + + + | Performing | Address | City/State/Zipcode | Phone Number | | Organization | | | | + + + + + | [facility] | [address] | [place] [address] | [phone] | + + + + + Vitamin [...] [facility] | | | | performed at [facility], [address] | | LABORATORY | | | | [address], | | | | | | [place] [address] | | | | + + + + + + + + | Specimen | + + | Blood | + + + + + + + | Performing | Address | City/State/Zipcode | Phone Number | | Organization | | | | + + + + + | [facility] | [address] | [place] [address] | [phone] | + + + + + Troponin [...] at | | | | | | [facility];[address] [facility] | | | | | | [facility];[place] [address] | | | | + + + + + + + + | Specimen | + + | Blood | + + + + + + + | Performing | Address | City/State/Zipcode | Phone Number | | Organization | | | | + + + + + | [facility] | [address] | [place] [address] | [phone] | + + + + + POC Glucose (04/06/2019 11:28 AM PST) + + + + + + | Component | Value | Ref Range | Performed | Pathologist | | | | | At | Signature | + + + + + + | Glucose, | 175 (H)Comment: Testing | 65 - 99 mg/dL | [facility] | | | POC | performed at [facility];[address] | | LABORATORY | | | | [address];[place] | | | | | | [address] | | | | + + + + + + + + | Specimen | + + | | + + + + + + + | Performing | Address | City/State/Zipcode | Phone Number | | Organization | | | | + + + + + | [facility] | [address] | [place] [address] | [phone] | + + + + + VAS [...] | | | POC | performed at [facility];[address] | | LABORATORY | | | | [address];[place] | | | | | | [address] | | | | + + + + + + + + | Specimen | + + | | + + + + + + + | Performing | Address | City/State/Zipcode | Phone Number | | Organization | | | | + + + + + | [facility] | [address] | [place] [address] | [phone] | + + + + + Troponin I (04/06/2019 8:31 AM PST) + + + + + + | Component | Value | Ref Range | Performed | Pathologist | | | | | At | Signature | + + + + + + | Troponin I | 0.19 (H)Comment: 0.04 | 0.00 - 0.04 | [facility] | | | | ng/mL or less [...] at | | | | | | [facility];[address] [place] [address] | | | | | | [facility];[place] [address] | | | | + + + + + + + + | Specimen | + + | Blood | + + + + + + + | Performing | Address | City/State/Zipcode | Phone Number | | Organization | | | | + + + + + | [facility] | [address] | [place] [address] | [phone] | + + + + + XR [...] Special | Testing performed at | | [facility] | | | Requests | [facility];[address] | | LABORATORY | | | | [address];[place] [address] | | | | + + + + + + | RESULT | NO GROWTH 6 DAYS | | [facility] | | | | | | LABORATORY | | + + + + + + | RESULT | Testing performed at | | [facility] | | | | [facility], [address] [facility] | | LABORATORY | | | | [place], [place] | | | | | | [id number]: Testing | | | | | | performed at [facility], [address] | | | | | | [address] [place], [place], [place] | | | | | | [address] | | | | + + + [...] [facility] | [address] | [place] [address] | [phone] | + + + + + Culture, [...] Special | Testing performed at | | [facility] | | | Requests | [facility];[address] | | LABORATORY | | | | [place] [address] | | | | + + + + + + | RESULT | NO GROWTH 6 DAYS | | [facility] | | | | | | LABORATORY | | + + + + + + | RESULT | Testing performed at | | [facility] | | | | [facility], [address] [facility] | | LABORATORY | | | | [place], [place] | | | | | | [id number]: Testing | | | | | | performed at [facility], [facility] | | | | | | [address], [place] | | | | | | [address] | | | | + + + + + + + + | Specimen | + + | Blood - Peripheral | | blood specimen | | (specimen) | + + + + + + + | Performing | Address | City/State/Zipcode | Phone Number | | Organization | | | | + + + + + | [facility] | [address] | [place] [address] | [phone] | + + + + + B [...] | | LABORATORY | | | | [facility];[address] | | | [address];[place] [address] | | | | + + + + + + + + | Specimen | + + | | + + + + + + + | Performing | Address | City/State/Zipcode | Phone Number | | Organization | | | | + + + + + | [facility] | [address] | [place] [address] | [phone] | + + + + + Lipid [...] | 13Comment: Testing | <100 mg/dL | [facility] | | | Calculated | performed at [facility], [address] | | LABORATORY | | | | [address], | | | | | | [place] [address] | | | | + + + + + + + + | Specimen | + + | Blood | + + + + + + + | Performing | Address | City/State/Zipcode | Phone Number | | Organization | | | | + + + + + | [facility] | [address] | [place] [address] | [phone] | + + + + + Hemoglobin A1C (04/06/2019 2:48 AM PST) + + + + + + | Component | Value | Ref Range | Performed | Pathologist | | | | | At | Signature | + + + + + + | Hemoglobin | 7.8 (H)Comment: HbA1c | 4.0 - 6.0 % | [facility] | | | A1c | method is [...] | 177 (H)Comment: | <154 mg/dL | [facility] | | | Average | Estimated Average | | LABORATORY | | | Glucose | Glucose calculated from | | | | | | hemoglobin A1c by use of | | | | | | the ADArecommended | | | | | | formula.Testing | | | | | | performed at [facility], [address] | | | | | [address], | | | | | | [place] [address] | | | | + + + + + + + + | Specimen | + + | Blood | + + + + + + + | Performing | Address | City/State/Zipcode | Phone Number | | Organization | | | | + + + + + | [facility] | [address] | [place] [address] | [phone] | + + + + + Magnesium (04/06/2019 2:48 AM PST) + + + + + + | Component | Value | Ref Range | Performed | Pathologist | | | | | At | Signature | + + + + + + | Magnesium | 1.4 (L)Comment: Testing | 1.7 - 2.4 mg/dL | [facility] | | | | performed at [facility], [address] | LABORATORY | | | | [address], | | | | | | [place] [address] | | | | + + + + + + + + | Specimen | + + | Blood | + + + + + + + | Performing | Address | City/State/Zipcode | Phone Number | | Organization | | | | + + + + + | [facility] | [address] | [place] [address] | [phone] | + + + + + Comprehensive [...] | | | | | performed at [facility], [address] | | | | | | [facility], | | | | | | [place] [address] | | | | + + + + + + + + | Specimen | + + | Blood | + + + + + + + | Performing | Address | City/State/Zipcode | Phone Number | | Organization | | | | + + + + + | [facility] | [address] | [place] [address] | [phone] | + + + + + CBC [...] | | | | | | at [facility];[address] | [address];[place] [address] | | | | | |NORMAL PLT MORPH | | | | | |Testing performed at [facility];[address];[place] [address] | | | | | | | | | | + + + + + + + + | Specimen | + + | Blood | + + + + + + + | Performing | Address | City/State/Zipcode | Phone Number | | Organization | | | | + + + + + | [facility] | [address] | [place] [address] | [phone] | + + + + + Ev [...] | | | | | performed at [facility] | | | | | | [address];[place], [place] | | | | | | [address] | | | | + + + + + + + + | Specimen | + + | Blood | + + + + + + + | Performing | Address | City/State/Zipcode | Phone Number | | Organization | | | | + + + + + | [facility] | [address] | [place] [address] | [phone] | + + + + + PTT (04/06/2019 2:48 AM PST) + + + + + + | Component | Value | Ref Range | Performed | Pathologist | | | | | At | Signature | + + + + + + | PTT | 34 (H)Comment: Testing | 23 - 32 seconds | IDA | | | | performed at [facility];[address] | | LABORATORY | | | | [address];[place] | | | | | | [address] | | | | + + + + + + + + | Specimen | + + | Blood | + + + + + + + | Performing | Address | City/State/Zipcode | Phone Number | | Organization | | | | + + + + + | [facility] | [address] | [place] [address] | [phone] | + + + + + Troponin [...] at | | | | | | [facility];[address] [place] [address] | | | | | | [facility];[place] [address] | | | | + + + + + + + + | Specimen | + + | Blood | + + + + + + + | Performing | Address | City/State/Zipcode | Phone Number | | Organization | | | | + + + + + | [facility] | [address] | [place] [address] | [phone] | + + + + + documented [...] | | | | | dose on [facility] 04/12/19 at 2100 | | [...]
--- OUTSIDE RECORDS SUMMARY | ~2019-08-23 | XMS | Encounter Summary ---
Demographics + + + | Address | [address] | | | [place] [address] | + + + | Home Phone [...] + | Jessica Shepard | ECON | [address] | | | | | [place] | | | | | [address] | | + + + + + | Bel Solis | ECON | Unknown | | + + + + + Care Team Providers + +------+ + | Care Data Warehousing Engineer Name | Role | Phone | [...] + + | 04/23/ | Telephone | [facility] | Dianna Heranndez, | Follow-up | | 2019 | | VASCULAR SURGERY | [employer] | | | | | [address] | | | | | | [place] | | | | | | [address] | | | | | | [phone] | | | +--------+ + + + [...]
--- OUTSIDE RECORDS SUMMARY | ~2019-08-23 | XMS | Encounter Summary ---
Demographics + + + | Address | [address] | | | [place] [address] | + + + | Home Phone | | + + + | Preferred Language | Unknown | + + + | Marital Status | | + + + | Bahai Affiliation | 1076 | + + + | Race | Unknown | + + + | Ethnic Group | Unknown | + + + Author + + + | Author | [facility] | | | and [place] | + + + | Organization | [facility] | | | and [place] | + + + | Address | Unknown | + + + | Phone | Unavailable | + + + Support + + + + + | Name | Relationship | Address | Phone | + + + + + | Jessica Amezquita | ECON | [address] | | | | | [place] | | | | | [address] | | + + + + + | Bel Solis | ECON | Unknown | | + + + + + Care Team Providers + +------+ + | Care Weather Clerk Name | Role | Phone | + +------+ + | Dian Lr NP | PCP | | + +------+ + Encounter Details +--------+ + + + + | Date | Type | Department | Care Team | Description | +--------+ + + + + | 04/05/ | Hospital | [facility] | Cezar Da Silvaee | | | 2014 - | Encounter | MED CTR EMERGENCY | MD [place] | | | | | [place] [address] | [facility], | | | 04/06/ | | [place] | [place] [address] | | | 2013 | | [address] | [phone] | | | | | [phone] | | | +--------+ + + + [...] + | [facility] Diagnostic Imaging | NUNDA | | Department [address] [facility] | [facility] | | [ rep ct [address]] [ rep ct [facility] | | [facility]] Signed | - IMAGING | | | | | Patient Name: REAGAN AMEZQUITA Physician: | | | ALICJAR. : 1945 Age: 68 Sex: M Unit #: [id number] | | | Exam Date: 04/05/13 Location: ER | | | Report #: [id number] Page: | | | %(RAD)RES..mtdd.print.filter("pg") of %(RAD) | | | RES..mtdd.print.filter("tpg") | | | | | | Accession Number: [id number] | | | ULTRASOUND OF THE ABDOMEN [...] Transcribed Date/Time: 04/06/2013 08:35 | | | Basket Filler: <<Signature on File>> | | | | | | Rico Santiago MD04/06/13 1619 <Electronically signed by Rico Santiago | | | MD> Rico Santiago MD 04/06/13 0827 Basket Filler: | | | Plovgh Muccfjxedhiqu40/17/14 0835 Christina Da Silva, | | | | | + + + + + + + + | Performing | Address | City/State/Zipcode | Phone Number | | Organization | | | | + + + + + | [facility] | [address] | [place] | [phone] | | [facility] | | [address] | | | - IMAGING | | | | + + + + + CT Abdomen Pelvis w Contrast (04/06/2013 7:25 AM PST) + + | Specimen | + + | | + + + + + | Narrative | Performed At | + + + | [facility] Diagnostic Imaging | NUNDA | | Department [address], [place] | [facility] | | [ rep ct [address]] [ rep ct [facility] | | st zip] Signed | - IMAGING | | | | | Patient Name: REAGAN AMEZQUITA Physician: | | | ALICJAR. : 1945 Age: 68 Sex: M Unit #: [id number] | | | Exam Date: 04/05/13 Location: ER | | | Report #: [id number] Page: | | | %(RAD)RES..mtdd.print.filter("pg") of %(RAD) | | | RES..mtdd.print.filter("tpg") | | | | | | Accession Number: [id number] | | | ENHANCED CT ABDOMEN AND [...] | fluid is evident. There are stable imgxusoteo-ff-abvjqh enlarged | | | kierra caval lymph [...] STABLE SPLENOMEGALY. | | | 4. STABLE GNFADAJIEY-WW-AEYJAY ENLARGED KIERRA CAVAL LYMPH | | | [...] ER | | | staff by the [facility] radiologist on 04/05/2013 at 2147 hours. | | | Dictated Date/Time: 04/06/2013 07:25 Transcribed | | | Date/Time: 04/06/2013 07:40 Basket Filler: | | | <<Signature on File>> | | | Tez Jacobo | | | MD Yossi04/06/13 1051 <Electronically signed by Tez Sy MD> | | | Tez Sy MD 04/06/13 0725 Basket Filler: | | | Plovgh Crezljbsqpewz64/17/14 0740 Christina Da Silva, | | | | | + + + + + + + + | Performing | Address | City/State/Zipcode | Phone Number | | Organization | | | | + + + + + | [facility] | [address] | [place] | [phone] | | [facility] | | [address] | | | - IMAGING | | [...] - 1.030 | [facility] | | | [place], | | | [facility] | | [...] [address] | [place] | [phone] | | [facility] | | [address] | | | - LABORATORY | | | | + + + + + | [facility] | [address] | [place] | | | [facility] | | [address] | | | - LABORATORY [...] + | [facility] | [address] | [place] | [phone] | | [facility] | | [address] | | | - LABORATORY | | | | + + + + + | [facility] | [address] | [place], [place] | | | [facility] | | [address], [facility] | | | - LABORATORY | [...] | | | | | | [facility] | | | | | | MEDICAL [...] + | [facility] | [address] | [place], [place] | [phone] | | [facility] | | [facility] | | | - LABORATORY | | | | + + + + + | [facility] | [address] | [place], [place] | | | [facility] | | [address] [place] [address] | | | - LABORATORY | | [...] [address] | [place] | [phone] | | [facility] | | [address] | | | - LABORATORY | | | | + + + + + | [facility] | [address] | [place] | | | [facility] | | [address], [facility] | | | - LABORATORY | [...] | | | | | REPORT TO [facility] | | | | | | 04/05/13 @ 1919 by | | | | | | SHANE | | | | | | Comment: PHONED REPORT TO [facility] 04/05/13 @ 1919 by [...] [address] | [place] | [phone] | | [facility] | | [address] | | | - LABORATORY | | | | + + + + + | [facility] | [address] | [place] | | | [facility] | | [address] | | | - LABORATORY | | | | + + + + + documented in this encounter Visit Diagnoses Not on filedocumented in this encounter
--- OUTSIDE RECORDS SUMMARY | ~2019-08-23 | XMS | Encounter Summary ---
Demographics + + + | Address | [address] | | | [place] [address] | + + + | Home Phone [...] + | Jessica Shepard | ECON | [address] | | | | | [place] | | | | | [address] | | + + + + + | Bel Solis | ECON | Unknown | | + + + + + Care Team Providers + +------+ + | Care Seed Yeast Operator Name | Role | Phone | [...] + + | 07/22/ | Telephone | [facility] | Dylan Gaston, | Other (He is | | 2020 | | INFECTIOUS DISEASE | Hero Malave MD | refusing to come to | | | | [address] | [address] | appointment. He will | | | | [place] | [place] [address] | call us back when | | | | [address] | [phone] | he is ready.) | | | | [phone] | | | +--------+ + + + [...]
--- OUTSIDE RECORDS SUMMARY | ~2019-08-23 | XMS | Encounter Summary ---
Demographics + + + | Address | [address] | | | [place] [address] | + + + | Home Phone [...] + | Jessica Shepard | ECON | [address] | | | | | [place] | | | | | [address] | | + + + + + | Bel Solis | ECON | Unknown | | + + + + + Care Team Providers + +------+ + | Care Cane Weigher Name | Role | Phone | + [...] | | | | | [place] [address] | | | | | | [phone] | | | +--------+ + + + [...]
--- OUTSIDE RECORDS SUMMARY | ~2019-08-23 | XMS | Encounter Summary ---
Demographics + + + | Address | [address] | | | [place] [address] | + + + | Home Phone [...] + | Jessica Shepard | ECON | [address] | | | | | [place] | | | | | [address] | | + + + + + | Bel Solis | ECON | Unknown | | + + + + + Care Team Providers + +------+ + | Care Cotton Feeder Name | Role | Phone | + +------+ + | Jamar Manuel MD | PCP | | + +------+ + Encounter Details +--------+ + + + + | Date | Type | Department | Care Team | Description | +--------+ + + + + | 04/10/ | Anesthesia | [facility] | Haroldo Ford, | | | 2019 | [facility] | BALE COVERER [address] | | | | | OPER[address] | [place] [address] | | | | | [address] | [phone] | | | | | [place], [place] | | | | | | [address] | Eli Davies, | | | | | [phone] | Gina BALE COVERER [address] | | | | | | [address] | | | | | | [place] [address] | | | | | | [phone] | | | | | | | [...] 1720; Diabetic ulc; | 11/19/17 1720 by Janyn | | | | Left; lateral; foot; [...] Dhara Mendez RN | | IV | iwmh-kdf-mjwiyw catheter system; | | | | | [...]
--- OUTSIDE RECORDS SUMMARY | ~2019-08-23 | XMS | Encounter Summary ---
Demographics + + + | Address | [address] | | | [place] [address] | + + + | Home Phone | | + + + | Preferred Language | Unknown | + + + | Marital Status | | + + + | Jainism Affiliation | [id number] | + + + [...] + | Jessica Shepard | ECON | [id number] | | | | | [place] | | | | | [address] | | + + + + + | Bel Solis | ECON | Unknown | | + + + + + Care Team Providers + +------+ + | Care Military Professional Name | Role | Phone | + [...] + + | 11/19/ | Hospital | [facility] | Jurgen Casiano | [place] | | 2018 - | Encounter | [facility] | MD Shayne [address] | encounter (Primary | | | | [address] [place] | [address] [place] | Dx); Fever, | | 11/25/ | | [place] [address] | [place] [address] | unspecified fever | | 2017 | | [phone] | [phone] | cause; Pneumonia due | | | | | | to infectious | | | | | Gray Perea MD | organism, | | | | | [address] | unspecified | | | | | [place], [place] | laterality, | | | | | [id number] | unspecified part of | | | | | | lung; Sepsis, due to | | | | | Mil Sandoval MD | unspecified | | | | | [address] | organism (HCC); | | | | | [place] | Insulin dependent | | | | | [id number] | diabetes mellitus | | | | | | ([facility]); Other chronic | | | | | | osteomyelitis of | | | | | | right foot ([facility]); | | | | | | Peripheral vascular | | | | | | disease ([facility]) | +--------+ + + + [...] other anesthesia was used during the case. [facility] t lower extremity was then scrubbed, [...] -PT/OT ordered Code Status: Full Code Disposition: [facility] Discharge Condition: Stable, very deconditioned and weak at baseline Pleasant, no distress RRR, no m/r/g CTA bilaterally Soft, obese, NT Ext WWP, right foot ulcer with deep wound, slight purulent drainage Contact information for after-discharge care Placement Destination [facility] . Specialty: [facility] Facility Contact information: [address] [facility] [address] Discharge Medications New Medications Details acetaminophen [...] signed by: Justin Reyna MD, 11/25/2017 13:01 [facility] documented in this encounter Medications at Time [...] might be different f rom the original. [facility] Hospitalist Progress Note Reagan [...] pantoprazole Mechanical fall -PT/OT ordered Disposition : [facility] as soon as 11/25 Prophylaxis [...] as outlined above. Justin Reyna 11/24/2017 18:16 [facility] Sang Duff MD - 11/24/2017 1:59 PM PDTWe are evaluating the patient for further medical rehabilitatio n services. He does not qualify per CMS guidelines for full inpatient rehab . I recommend he be transferred to SNF for further skilled therapies once he is cleared acute ly. Justin Rodriguez MD - 11/23/2017 2:24 PM PDT [facility]G Hospitalist Progress Note Reagan [...] as outlined above. Justin Reyna 11/23/2017 14:24 [facility] orjuno, Simone VossARIM - 11/23/2017 1:58 PM PDT Foot & Ankle Surgery Progress Note Simone Aceves DPM Reagan Shepard Age/Gender 72 y.o. male Location [facility] Attending Mil Sandoval MD Hosp [...] Value Units Date/Time Culture, Wound, Smear, w/Anaerobe [[id number]] Collected: 11/21/17 1208 Order Status: Sent Lab Status: In process Updated: 11/21/17 1250 Specimen: Tissue from Toe, Fifth/Small, Right Narrative: The following orders were created for panel order Culture, Wound, Smear, w/Anaerobe. Procedure Abnormality Status --------- ------ Culture, Wound, Smear[[id number]] In process Culture, Anaerobic[[id number]] In process Please view results for these tests on the individual orders. Culture, Wound, Smear [[id number]] Collected: 11/21/171207 Order Status: Sent Lab Status: In process Updated: 11/21/17 1250 Specimen: Tissue from Toe, Fifth/Small, Right Culture, Anaerobic [[id number]] Collected: 11/21/171207 Order Status: Sent Lab Status: [...] Simone Aceves DPM 13:58; 11/23/2017 Irasema Dominguez, Recruitment Director - 11/23/2017 9:43 AM PDT PHARMACY SERVICES: [...] strength, and directions X Pharmacy list names: [facility] X [employer] insurance reported information [...] Prior to Admission Sig: Patient taking differently BALE COVERER as: Hydrocodone-acetaminophen 10-325 mg Take one tablet by mouth four times daily as needed fo r pain Patient taking 1 tablet three times daily as a scheduled dose Best possible BALE COVERER medication list after pharmacy review: PT REPORTED [...] performed and electronically signed by Blanquita Bertrand, Bridge Instructor 11/22/2017 8:38 Electronically signed by: Irasema Moyer, Recruitment Director 11/23/2017 9:43 Justin Rodriguez MD - 11/22/2017 5:22 PM PDT [facility] Hospitalist Progress Note Reagan [...] as outlined above. Justin Reyna 11/22/2017 17:40 [facility] anielle Guillermo, Compression Molding Machine Tender - 11/22/2017 2:13 PM PDTFormatting of this [...] cerebral hemisphere; Diabetes mellitus (HCC); Stroke (cerebrum) ([facility]); an d TBI (traumatic brain injury) ([facility]). No risk factors for MDR [...] Value Units Date/Time Culture, Wound, Smear, w/Anaerobe [[id number]] Collected: 11/21/17 1208 Order Status: Sent Lab Status: In process Updated: 11/21/17 1250 Specimen: Tissue from Toe, Fifth/Small, Right Narrative: The following orders were created for panel order Culture, Wound, Smear, w/Anaerobe. Procedure Abnormality Status --------- ------ Culture, Wound, Smear[[id number]] Preliminary result Culture, Anaerobic[[id number]] In process Please view results for these tests on the individual orders. Culture, Wound, Smear [[id number]] Collected: 11/21/17 1208 Order Status: Completed Lab Status: Preliminary result Updated: 11/22/17 1021 Specimen: Tissue from Toe, Fifth/Small, Right Culture 2+ Lactose Fermenting Gram Negative Bacilli Comment: Identification and susceptibility to follow. Gram Stain Result 2+ White Blood Cells 1+ Epithelial cells 2+ Gram negative rods Culture, Anaerobic [[id number]] Collected: 11/21/17 1208 Order Status: Sent Lab Status: In process Updated: 11/21/17 1250 Specimen: Tissue from Toe, Fifth/Small, Right Respiratory Virus Panel, NAAT [[id number]] Collected: 11/20/17 1257 Order Status: Completed Lab [...] pneumoniae DNA Not Detected Narrative: Performed at: [address] [place] [id number] Stand Up Forklift Operator: Jurgen Costa MD, Phone: [phone] Culture, Wound, Smear [[id number]] (Susceptibility) Collected: 11/20/17 0825 Order Status: Completed [...] Sulfamethoxazole <=20 ug/mL Sensitive Culture, Wound, Smear [[id number]] (Susceptibility) Collected: 11/19/172030 Order Status: Completed Lab [...] no longer reported. Culture, Respiratory, Lower, Smear [[id number]] Order Status: Sent Lab Status: No result Specimen: Body Fluid from Sputum, Expectorated Culture, Wound, Smear [[id number]] Order Status: Canceled Lab Status: No result Specimen: Tissue from Leg, Left Culture, Blood [[id number]] (Normal) Collected: 11/19/17 1537 Order Status: Completed Lab Status: Preliminary result Updated: 11/20/17 0351 Specimen: Blood from Peripheral Blood Culture No growth: Monitored continually by instrument for 5 days Culture, Blood [[id number]] (Normal) Collected: 11/19/17 1506 Order Status: Completed Lab Status: Preliminary result Updated: 11/20/17 0321 Specimen: Blood from Peripheral Blood Culture No growth: Monitored continually by instrument for 5 days Culture, Urine [[id number]] Collected: 11/19/17 1416 Order Status: Completed Lab [...] Monitoring Protocol Electronically signed by: Danielle Guillermo, Compression Molding Machine Tender 11/22/2017 14:13 Associated attestation - Luther Hampton [...] Shepard Age/Gender 72 y.[address] male Location [facility] Attending Mil Sandoval MD Hosp [...] Value Units Date/Time Culture, Wound, Smear, w/Anaerobe [[id number]] Collected: 11/21/171207 Order Status: Sent Lab Status: In process Updated: 11/21/17 1250 Specimen: Tissue from Toe, Fifth/Small, Right Narrative: The following orders were created for panel order Culture, Wound, Smear, w/Anaerobe. Procedure Abnormality Status --------- ------ Culture, Wound, Smear[[id number]] In process Culture, Anaerobic[[id number]] In process Please view results for these tests on the individual orders. Culture, Wound, Smear [[id number]] Collected: 11/21/171207 Order Status: Sent Lab Status: In process Updated: 11/21/17 1250 Specimen: Tissue from Toe, Fifth/Small, Right Culture, Anaerobic [[id number]] Collected: 09/03/18 1208 Order Status: Sent Lab [...] cerebral hemisphere; Diabetes mellitus (HCC); Stroke (cerebrum) ([facility]); an d TBI (traumatic brain injury) ([facility]). . No risk factors for [...] Value Units Date/Time Culture, Wound, Smear, w/Anaerobe [[id number]] Collected: 11/21/17 1208 Order Status: Sent Lab Status: In process Updated: 11/21/17 1250 Specimen: Tissue from Toe, Fifth/Small, Right Narrative: The following orders were created for panel order Culture, Wound, Smear, w/Anaerobe. Procedure Abnormality Status --------- ------ Culture, Wound, Smear[[id number]] In process Culture, Anaerobic[[id number]] In process Please view results for these tests on the individual orders. Culture, Wound, Smear [[id number]] Collected: 11/21/17 1208 Order Status: Sent Lab Status: In process Updated: 11/21/17 1250 Specimen: Tissue from Toe, Fifth/Small, Right Culture, Anaerobic [[id number]] Collected: 11/21/17 1208 Order Status: Sent Lab Status: In process Updated: 11/21/17 1250 Specimen: Tissue from Toe, Fifth/Small, Right Respiratory Virus Panel, NAAT [[id number]] Collected: 11/20/17 1257 Order Status: Sent Lab Status: In process Updated: 11/20/17 1302 Specimen: Tissue from Nasopharynx Culture, Wound, Smear [[id number]] Collected: 11/20/17 0825 Order Status: Completed Lab Status: Preliminary result Updated: 11/21/17 0739 Specimen: Tissue from Foot, Right Culture 1+ Gram Negative Jayesh, NOT Pseudomonas Comment: Identification and susceptibility to follow. 1+ Gram Positive Cocci Comment: Isolating for additional information. Gram Stain Result 1+ White Blood Cells No organisms seen Culture, Wound, Smear [[id number]] (Susceptibility) Collected: 11/19/17 203 Order Status: Completed [...] <=20 ug/mL Sensitive Culture, Respiratory, Lower, Smear [[id number]] Order Status: Sent Lab Status: No result Specimen: Body Fluid from Sputum, Expectorated Culture, Wound, Smear [[id number]] Order Status: Canceled Lab Status: No result Specimen: Tissue from Leg, Left Culture, Blood [[id number]] (Normal) Collected: 11/19/17 1537 Order Status: Completed Lab Status: Preliminary result Updated: 11/20/17 0351 Specimen: Blood from Peripheral Blood Culture No growth: Monitored continually by instrument for 5 days Culture, Blood [[id number]] (Normal) Collected: 11/19/17 1506 Order Status: Completed Lab Status: Preliminary result Updated: 11/20/17 0321 Specimen: Blood from Peripheral Blood Culture No growth: Monitored continually by instrument for 5 days Culture, Urine [[id number]] Collected: 11/19/17 1416 Order Status: Completed Lab [...] Hoff MD - 11/21/2017 11:05 AM PDT [place], [place] HOSPITALIST PROGRESS NOTE Patient: Reagan Shepard : 1945: Age: 72 y.o. MedRec: [id number] Admission date: 11/19/2017 Hospital day # : [...] LV Systolic Area PSAX 13.46 cm2 LV Bekcett's Biplane EF 69 % AV Acceleration Time 103.6 msec LV ED Volume (Beckett's) 60.04 ml LV ED Volume Index 27 ml/m2 LV ES Volume 18.45 ml LVOT Mean Velocity 67.93 cm/s MV E' Lateral Velocity 5.96 cm/s MV E' Septal Velocity 4.79 cm/s MV Deceleration [place] 336.24 cm/s2 MV Deceleration Time 332.96 msec [...] Value Units Date/Time Respiratory Virus Panel, NAAT [[id number]] Collected: 11/20/17 1257 Order Status: Sent Lab Status: In process Updated: 11/20/17 1302 Specimen: Tissue from Nasopharynx Culture, Wound, Smear [[id number]] Collected: 11/20/17 0825 Order Status: Completed Lab Status: Preliminary result Updated: 11/21/17 0739 Specimen: Tissue from Foot, Right Culture 1+ Gram Negative Jayesh, NOT Pseudomonas Comment: Identification and susceptibility to follow. 1+ Gram Positive Cocci Comment: Isolating for additional information. Gram Stain Result 1+ White Blood Cells No organisms seen Culture, Wound, Smear [[id number]] (Susceptibility) Collected: 11/19/172030 Order Status: Completed Lab [...] + Sulfamethoxazole <=20 ug/mL Sensitive Culture, Blood [[id number]] (Normal) Collected: 11/19/17 1537 Order Status: Completed Lab Status: Preliminary result Updated: 11/20/17 0351 Specimen: Blood from Peripheral Blood Culture No growth: Monitored continually by instrument for 5 days Culture, Blood [[id number]] (Normal) Collected: 11/19/17 1506 Order Status: Completed Lab Status: Preliminary result Updated: 11/20/17 0321 Specimen: Blood from Peripheral Blood Culture No growth: Monitored continually by instrument for 5 days Culture, Urine [[id number]] Collected: 11/19/17 1416 Order Status: Completed Lab [...] Other Pharmacy Consult Nasim Jimenez 11/21/2017 11:05 [facility] Nasim Hoff MD - 11/20/2017 10:04 AM PDT [facility] [place] HOSPITALIST PROGRESS NOTE Patient: Reagan Shepard : 1945: Age: 72 y.o. MedRec: [id number] Admission date: 11/19/2017 Hospital day # : [...] PH UA 5.0 5.0 - 8.0 Specific [place] 1.017 1.001 - 1.030 PROTEIN UA 30 [...] Component Value Units Date/Time Culture, Wound, Smear [[id number]] Collected: 11/20/17824 Order Status: Sent Lab Status: In process Updated: 11/20/17828 Specimen: Tissue from Foot, Right Culture, Wound, Smear [[id number]] Collected: 11/19/172030 Order Status: Completed Lab Status: Preliminary result Updated: 11/20/17899 Specimen: Tissue from Leg, Lower, Right Culture 2+ Gram Negative Jayesh, NOT Pseudomonas Comment: Identification and susceptibility to follow. 1+ Gram Positive Cocci Comment: Isolating for additional information. Gram Stain Result No white blood cells (PMNs) seen 1+ Gram negative rods Culture, Blood [[id number]] (Normal) Collected: 11/19/17 1537 Order Status: Completed Lab Status: Preliminary result Updated: 11/20/17 0351 Specimen: Blood from Peripheral Blood Culture No growth: Monitored continually by instrument for 5 days Culture, Blood [[id number]] (Normal) Collected: 11/19/17 1506 Order Status: Completed Lab Status: Preliminary result Updated: 11/20/17 0321 Specimen: Blood from Peripheral Blood Culture No growth: Monitored continually by instrument for 5 days Culture, Urine [[id number]] (Normal) Collected: 11/19/17 1416 Order Status: Completed [...] Other Pharmacy Consult Nasim Jimenez 11/20/2017 10:05 [facility] Khadra Mac Phar mD - 11/20/2017 [...] (HCC); an d TBI (traumatic brain injury) ([facility]). . No risk factors for [...] Component Value Units Date/Time Culture, Wound, Smear [[id number]] Collected: 11/20/17 0825 Order Status: Sent Lab Status: In process Updated: 11/20/17828 Specimen: Tissue from Foot, Right Culture, Wound, Smear [[id number]] Collected: 11/19/172030 Order Status: Completed Lab Status: Preliminary result Updated: 11/20/17 09 Specimen: Tissue from Leg, Lower, Right Culture 2+ Gram Negative Jayesh, NOT Pseudomonas Comment: Identification and susceptibility to follow. 1+ Gram Positive Cocci Comment: Isolating for additional information. Gram Stain Result No white blood cells (PMNs) seen 1+ Gram negative rods Culture, Respiratory, Lower, Smear [[id number]] Order Status: Sent Lab Status: No result Specimen: Body Fluid from Sputum, Expectorated Culture, Wound, Smear [[id number]] Order Status: Canceled Lab Status: No result Specimen: Tissue from Leg, Left Culture, Blood [[id number]] (Normal) Collected: 11/19/17 1537 Order Status: Completed Lab Status: Preliminary result Updated: 11/20/17 0351 Specimen: Blood from Peripheral Blood Culture No growth: Monitored continually by instrument for 5 days Culture, Blood [[id number]] (Normal) Collected: 11/19/17 1506 Order Status: Completed Lab Status: Preliminary result Updated: 11/20/17 0321 Specimen: Blood from Peripheral Blood Culture No growth: Monitored continually by instrument for 5 days Culture, Urine [[id number]] (Normal) Collected: 11/19/17 1416 Order Status: Completed [...] cerebral hemisphere; Diabetes mellitus (HCC); Stroke (cerebrum) ([facility]); an d TBI (traumatic brain injury) ([facility]). . No risk factors for [...] Value Units Date/Time Culture, Respiratory, Lower, Smear [[id number]] Order Status: Sent Lab Status: No result Specimen: Body Fluid from Sputum, Expectorated Culture, Wound, Smear [[id number]] Order Status: Sent Lab Status: No result Specimen: Tissue from Leg, Left Culture, Blood [[id number]] Collected: 11/19/17 1537 Order Status: Sent Lab Status: In process Updated: 11/19/17 1543 Specimen: Blood from Peripheral Blood Culture, Blood [[id number]] Collected: 11/19/17 1506 Order Status: Sent Lab Status: In process Updated: 11/19/17 1511 Specimen: Blood from Peripheral Blood Culture, Urine [[id number]] Collected: 11/19/17 1416 Order Status: Sent Lab [...] K?MRN: | | | | | | [id number] | | | [id number] | | | his | | | [...] | | | ent/06 | | | [id number] | | | -9b07- | | | [...] | | | St. | | | [facility] | | | y H. | | [...] | | | St. | | | [facility] | | | y | | | [...] + | [facility] | [address] | [place] | [phone] | | [facility] | | [address] | | | - LABORATORY | | [...] [address] | [place] | [phone] | | [facility] | | [address] | | | - LABORATORY | | [...] [address] | [place] | [phone] | | [facility] | | [address] | | | - LABORATORY | | [...] 15 | 7 - 18 mg/dL | [facility] | | | | | | [facility] | | | | | | MEDICAL | | | | | | CENTER - | | | | | | LABORATORY | | + + + + + + | Creatinine | 0.91 | 0.60 - 1.30 | [place] | | | | | mg/dL | [facility] | | | | | | MEDICAL | | | | | | CENTER - | | | | | | LABORATORY | | + + + + + + | eGFR if not | >60Comment: GLOMERULAR | >=60 | [place] | | | | FILTRATION | mL/min/1.73m2 | [facility] | | | [place] | RATE,ESTIMATED | | MEDICAL | | | | mL/min/1.06n1Yryo than | | CENTER - | | [...] + | [facility] | [address] | [place] | [phone] | | [facility] | | [address] | | | - LABORATORY | | [...] + | [facility] | [address] | [place], [place] | [phone] | | [facility] | | [address] | | | - LABORATORY | | [...] + + | Performing | Address | City/State/[facility] | Phone Number | | Organization | | | | + + + + + | [facility] | [address] | [place] | [phone] | | [facility] | | [address] | | | - LABORATORY | | [...] [address] | [place] | [phone] | | [facility] | | [address] | | | - LABORATORY | | [...] [address] | [place] | [phone] | | [facility] | | [address] | | | - LABORATORY | | [...] [address] | [place] | [phone] | | [facility] | | [address] | | | - LABORATORY | | [...] | 0.91 | 0.60 - 1.30 | [facility] | | | | | mg/dL | [facility] | | | | | | MEDICAL | | | | | | CENTER - | | | | | | LABORATORY | | + + + + + + | eGFR if not | >60Comment: GLOMERULAR | >=60 | [facility] | | | | FILTRATION | mL/min/1.73m2 | [facility] | | | [place] | RATE,ESTIMATED | | MEDICAL | | | | mL/min/1.17k5Msoh than | | CENTER - | | [...] + | [facility] | [address] | [place] | [phone] | | [facility] | | [address] | | | - LABORATORY | | [...] + | [facility] | [address] | [place] | [phone] | | [facility] | | [address] | | | - LABORATORY | | [...] [address] | [place] | [phone] | | [facility] | | [address] | | | - LABORATORY | | [...] [address] | [place] | [phone] | | [facility] | | [address] | | | - LABORATORY | | [address] | [place] | [phone] | | [facility] | | [address] | | | - LABORATORY | | [...] ST. | [address] | [place] | [phone] | | [facility] | | [address] | | | - LABORATORY | | [...] [address] | [place] | [phone] | | [facility] | | [address] | | | - LABORATORY | | [...] | 0.87 | 0.60 - 1.30 | [facility] | | | | | mg/dL | [facility] | | | | | | MEDICAL | | | | | | CENTER - | | | | | | LABORATORY | | + + + + + + | eGFR if not | >60Comment: GLOMERULAR | >=60 | [facility] | | | | FILTRATION | mL/min/1.73m2 | [facility] | | | [place] | RATE,ESTIMATED | | MEDICAL | | | | mL/min/1.38h0Rdit than | | CENTER - | | [...] + | [facility] | [address] | [place] | [phone] | | [facility] | | [address] | | | - LABORATORY | | [...] [place]. | [address] | [place] | [phone] | | [facility] | | [address] | | | - LABORATORY | | [...] [address] | [place] | [phone] | | [facility] | | [address] | | | - LABORATORY | | [...] + | [facility] | [address] | [place] | [phone] | | [facility] | | [address] | | | - LABORATORY | | [...] + | [facility] | [address] | [place] | [phone] | | [facility] | | [address] | | | - LABORATORY | | [...] [address] | [place] | [phone] | | [facility] | | [address] | | | - LABORATORY | | [...] [address] | [place] | [phone] | | [facility] | | [address] | | | - LABORATORY | | [...] [address] | [place] | [phone] | | [facility] | | [address] | | | - LABORATORY | | [...] + | [facility] | [address] | [place] | [phone] | | [facility] | | [address] | | | - LABORATORY | | [...] mL/min/1.73m2 | [facility] | | | [place] | RATE,ESTIMATED | | MEDICAL | | | | mL/min/1.80z2Qeip than | | CENTER - | | [...] [address] | [place] | [phone] | | [facility] | | [address] | | | - LABORATORY | | [...] [address] | [place] | [phone] | | [facility] | | [address] | | | - LABORATORY | | [...] + | [facility] | [address] | [place] | [phone] | | [facility] | | [address] | | | - LABORATORY | | [...] [address] | [place] | [phone] | | [facility] | | [address] | | | - LABORATORY | | [...] [address] | [place] | [phone] | | [facility] | | [address] | | | - LABORATORY | | [...] | | | aerogenesComment: | | [facility] | | | | Consider [...] [address] | [place] | [phone] | | [facility] | | [address] | | | - LABORATORY | | [...] + | [facility] | [address] | [place] | [phone] | | [facility] | | [address] | | | - LABORATORY | | [...] | [address] | [place] | [phone] | | [facility] | | [address] | | | - LABORATORY | | [...] [address] | [place] | [phone] | | [facility] | | [address] | | | - LABORATORY | | [...] [address] | [place] | [phone] | | [facility] | | [address] | | | - LABORATORY | | [...] [address] | [place] | [phone] | | [facility] | | [address] | | | - LABORATORY | | [...] [address] | [place] | [phone] | | [facility] | | [address] | | | - LABORATORY | | [...] + | [facility] | [address] | [place] | [phone] | | [facility] | | [address] | | | - LABORATORY | | [...] 0.20 (H) | 0.00 - 0.10 | [facility] | | | Basophils | | K/uL | [facility] [facility] | | | | | | MEDICAL [...] [address] | [place] | [phone] | | [facility] | | [address] | | | - LABORATORY | | [...] 14 | 7 - 18 mg/dL | [facility] | | | | | | [facility] | | | | | | MEDICAL | | | | | | CENTER - | | | | | | LABORATORY | | + + + + + + | Creatinine | 1.02 | 0.60 - 1.30 | [facility] | | | | | mg/dL | [facility] | | | | | | MEDICAL | | | | | | CENTER - | | | | | | LABORATORY | | + + + + + + | eGFR if not | >60Comment: GLOMERULAR | >=60 | [facility] | | | | FILTRATION | mL/min/1.73m2 | [facility] | | | [place] | RATE,ESTIMATED | | MEDICAL | | | | mL/min/1.58c2Cqnm than | | CENTER - | | [...] + | [facility] | [address] | [place] | [phone] | | [facility] | | [address] | | | - LABORATORY | | [...] [address] | [place] | [phone] | | [facility] | | [address] | | | - LABORATORY | | [...] ST. | [address] | [place] | [phone] | | [facility] | | [address] | | | - LABORATORY | | [...] | | | component was performed by [facility], [address] [place] [address] | | | [place] [address] (Research And Development Tester: Khadra Gill MD; CLIA# | | | [id number]). Professional interpretation was performed by [facility] | | | [facility], [address] | | | [place] [address] (Research And Development Tester: Ambrosio | | | [place]). Diagnostician: [...] [address] | [place] | [phone] | | [facility] | | [address] | | | - LABORATORY | | [...] | | | | | | n [place] | | | | | + +---------+ [...] ST. | [address] | [place] | [phone] | | [facility] | | [address] | | | - LABORATORY | | [...] + + | Performing | Address | City/State/[facility] | Phone Number | | Organization [...] + | Performed at: 01 - [place] [address], | REFERENCE LAB | | [place], [place] [id number] Stand Up Forklift Operator: Jurgen Costa MD, Phone: | NIKKI - BKElba | | [phone] | | + + + + + + + + | Performing | Address | City/State/Zipcode | Phone Number | | Organization | | | | + + + + + | REFERENCE LAB | [address] | [place], [place] | [phone] | | [facility] | [address] | [address] | | + + + [...] + | [facility] | [address] | [place] | [phone] | | [facility] | | [address] | | | - LABORATORY | | [...] [address] | [place] | [phone] | | [facility] | | [address] | | | - LABORATORY | | [...] + | [facility] | [address] | [place] | [phone] | | [facility] | | [address] | | | - LABORATORY | | [...] + | [facility] [facility] | [address] | [place] | [phone] | | [facility] | | [address] | | | - LABORATORY | | [...] [address] | [place] | [phone] | | [facility] | | [address] | | | - LABORATORY | | [...] [address] | [place] | [phone] | | [facility] | | [address] | | | - LABORATORY | | [...] [address] | [place] | [phone] | | [facility] | | [address] | | | - LABORATORY | | [...] + | [facility] | [address] | [place], [place] | [phone] | | [facility] | | [address] | | | - LABORATORY | | [...] [address] | [place] | [phone] | | [facility] | | [address] | | | - LABORATORY | | [...] 15 | 7 - 18 mg/dL | [facility] | | | | | | [facility] | | | | | | MEDICAL | | | | | | CENTER - | | | | | | LABORATORY | | + + + + + + | Creatinine | 0.91 | 0.60 - 1.30 | [facility] | | | | | mg/dL | [facility] | | | | | | MEDICAL | | | | | | CENTER - | | | | | | LABORATORY | | + + + + + + | eGFR if not | >60Comment: GLOMERULAR | >=60 | [facility] | | | | FILTRATION | mL/min/1.73m2 | [facility] | | | [place] | RATE,ESTIMATED | | MEDICAL | | | | mL/min/1.04r3Rbrh than | | CENTER - | | [...] + | [facility] | [address] | [place] | [phone] | | [facility] | | [address] | | | - LABORATORY | | [...] [address] | [place] | [phone] | | [facility] | | [address] | | | - LABORATORY | | [...] [address] | [place] | [phone] | | [facility] | | [address] | | | - LABORATORY | | [...] [address] | [place] | [phone] | | [facility] | | [address] | | | - LABORATORY | | [...] + | [address] [facility] | [address] | [place] | [phone] | | [facility] | | [address] | | | - LABORATORY | | [...] [address] | [place] | [phone] | | [facility] | | [address] | | | - LABORATORY | | [...] [address] | [place] | [phone] | | [facility] | | [address] | | | - LABORATORY | | [...] + | [facility] | [address] | [place] | [phone] | | [facility] | | [address] | | | - LABORATORY | | [...] [address] | [place] | [phone] | | [facility] | | [address] | | | - LABORATORY | | [...] | | | | mg/dL | [facility] | | | | | | MEDICAL | | | | | | CENTER - | | | | | | LABORATORY | | + + + + + + | eGFR if not | >60Comment: GLOMERULAR | >=60 | [facility] | | | | FILTRATION | mL/min/1.73m2 | [facility] | | | [place] | RATE,ESTIMATED | | MEDICAL | | | | mL/min/1.39d9Mqro than | | CENTER - | | [...] | | | | mg/dL | [facility] | | | | | [...] [address] | [place] | [phone] | | [facility] | | [address] | | | - LABORATORY | | [...] + | [facility] | [address] | [place] | [phone] | | [facility] | | [address] | | | - LABORATORY | | [...] | | | Dictated and Signed by: Rcio Santiago MD | | Electronically signed: 11/19/2017 4:16 PM | + + + +---------+ + + | Performing | Address | City/State/[facility]code | Phone Number | | Organization [...] | REFERENCE | | | | [facility] [place] | | LAB [facility] | | | | standards require a | | - [facility] | | | | culture to beperformed | | | | | | on CSF specimens | | | | | | submitted for bacterial | | | | | | antigen testing.(CAP | | | | | | [id number]) Urine | | | | | | specimens will not be | | | | | | cultured. | | | | + + + + + + + + | Specimen | + + | Urine | + + + + + | Narrative | Performed At | + + + | Performed at: 01 - [facility] [address] [place] [address], | REFERENCE LAB | | [place], [place] [id number] Stand Up Forklift Operator: Christ Deal MD, Phone: | NIKKI - NICOLÁS | | [phone] | | + + + + + + + + | Performing | Address | City/State/Zipcode | Phone Number | | Organization | | | | + + + + + | REFERENCE LAB | [address] | [place], [place] | [phone] | | [facility] | [facility] | [address] | | + + + + + [...] + | [facility] | [address] | [place] | [phone] | | [facility] | | [address] | | | - LABORATORY | | [...] - 1.030 | [facility] | | | [place], | | | [facility] | | [...] [address] | [place] | [phone] | | [facility] | | [address] | | | - LABORATORY | | [...] | | | | | | use [place] 10/325 if ordered. If | | | [...] | | | | last modification) on [facility] 11/24/17 | | | | | [...] | | | | | | | 3824-7778 Use NIGHT DOSE for | | | | | | | doses scheduled: HS, 3AM, | | | | | | | Nighttime 6180-4330, | | | | | | + [...] scheduled: AC, NPO, Daytime | | | 4376-7251 Use NIGHT DOSE for | | | doses scheduled: HS, 3AM, | | | Nighttime 6629-9525, | | + +---+ | | | [...] | | | | | | | 2732-5831 Use NIGHT DOSE for | | | | | | | doses scheduled: HS, 3AM, | | | | | | | Nighttime 1256-1924, | | | | | | + [...] | | | | | Subcutaneous, ONCE, [facility] 11/24/17 at | | | | [...]
--- OUTSIDE RECORDS SUMMARY | ~2019-08-23 | XMS | Encounter Summary ---
Demographics + + + | Address | [address] | | | [place] [address] | + + + | Home Phone [...] + | Jessica Shepard | ECON | [address] | | | | | [place] | | | | | [address] | | + + + + + | Bel Solis | ECON | Unknown | | + + + + + Care Team Providers + +------+ + | Care Assurance Senior Manager Name | Role | Phone | + +------+ + PCP | Unavailable | + +------+ + Encounter Details +--------+ + + + + | Date | Type | Department | Care Team | Description | +--------+ + + + + | 12/27/ | Hospital | [facility] | | | | 2006 | Encounter | MED CTR XRAY [address] | | | | | [place] | | | | | | [place] [address] | | | | | | [phone] | | | +--------+ + + + [...]
--- OUTSIDE RECORDS SUMMARY | ~2019-08-23 | XMS | Encounter Summary ---
Demographics + + + | Address | [address] | | | [place] [address] | + + + | Home Phone [...] + | Jessica Shepard | ECON | [address] | | | | | [place] | | | | | [address] | | + + + + + | Bel Solis | ECON | Unknown | | + + + + + Care Team Providers + +------+ + | Care Toggler Name | Role | Phone | + +------+ + | Dian Lr NP | PCP | | + +------+ + Encounter Details +--------+ + + + + | Date | Type | Department | Care Team | Description | +--------+ + + + + | 10/16/ | Orders Only | [facility] | Provider, | Other acute | | 2019 | | SYSTEM GENERIC OP | MD [address] | osteomyelitis, right | | | | CONVERSION [address] | [address] | ankle and foot | | | | [address] [place], [place] | [place] [address] | ([facility]) | | | | [address] | | | | | | [phone] | | | +--------+ + + + [...]
--- OUTSIDE RECORDS SUMMARY | ~2019-08-23 | XMS | Encounter Summary ---
Demographics + + + | Address | [address] | | | [place] [address] | + + + | Home Phone [...] + | Jessica Shepard | ECON | [address] | | | | | [place] | | | | | [address] | | + + + + + | Bel Solis | ECON | Unknown | | + + + + + Care Team Providers + +------+ + | Care International Account Executive Name | Role | Phone | + [...] + + | 04/25/ | Telephone | [facility] | Ely Mcguire | Other (care | | 2020 | | INFECTIOUS DISEASE | Parminder RN | coordination) | | | | [address] | | | | | | [place], [place] | | | | | | [address] | | | | | | [phone] | | | +--------+ + + + [...]
--- OUTSIDE RECORDS SUMMARY | ~2019-08-23 | XMS | Encounter Summary ---
Demographics + + + | Address | [address] | | | [place] [address] | + + + | Home Phone [...] + | Jessica Shepard | ECON | [address] | | | | | [place] | | | | | [address] | | + + + + + | Bel Solis | ECON | Unknown | | + + + + + Care Team Providers + +------+ + | Care Electrical Engineering Technician Name | Role | Phone | [...] | | | | | [place] [address] | | | | | | [phone] | | | +--------+ + + + [...]
--- OUTSIDE RECORDS SUMMARY | ~2019-08-23 | XMS | Encounter Summary ---
Demographics + + + | Address | [address] | | | [place] [address] | + + + | Home Phone [...] + | Jessica Shepard | ECON | [address] | | | | | [place] | | | | | [address] | | + + + + + | Bel Solis | ECON | Unknown | | + + + + + Care Team Providers + +------+ + | Care Tank Welder Name | Role | Phone | + +------+ + | Dian Lr NP | PCP | | + +------+ + Encounter Details +--------+ + + + + | Date | Type | Department | Care Team | Description | +--------+ + + + + | 05/14/ | Hospital | [facility] | Conversion | Pain | | 2017 | Encounter | CONVERSION [address] | Transaction, | | | | | [address] | Provider Unknown | | | | | [place] | [phone] | | | | | [address] | | | | | | [phone] | | | +--------+ + + + [...]
--- OUTSIDE RECORDS SUMMARY | ~2019-08-23 | XMS | Encounter Summary ---
Demographics + + + | Address | [address] | | | [place] [address] | + + + | Home Phone [...] + | Jessica Shepard | ECON | [address] | | | | | [place] | | | | | [address] | | + + + + + | Bel Solis | ECON | Unknown | | + + + + + Care Team Providers + +------+ + | Care Lidar Scientist Name | Role | Phone | + +------+ + | Jamar Manuel MD | PCP | | + +------+ + Encounter Details +--------+ + + + + | Date | Type | Department | Care Team | Description | +--------+ + + + + | 04/06/ | Hospital | [facility] | Jagdish Jimenez DO | Insulin dependent | | 2020 - | Encounter | [facility] | [address] | diabetes mellitus | | | | [address] | [place] [address] | ([facility]) (Primary Dx); | | 04/21/ | | [place], [place] | [phone] | Peripheral vascular | | 2020 | | [address] | | disease ([facility]); Other | | | | [phone] | Ady Yin MD | osteomyelitis of | | | | | [address] | right foot ([facility]); | | | | | [place] [address] | Essential | | | | | [phone] | hypertension; Acute | | | | | | left hemiparesis | | | | | Grover Charles MD | ([facility]); Other | | | | | [address] | osteomyelitis of | | | | | [place] [address] | right foot ([facility]); | | | | | [phone] | Chronic | | | | | | osteomyelitis ([facility]); | | | | | Scooter Davies MD | Acute osteomyelitis | | | | | [address] | of right calcaneus | | | | | [place] | ([facility]); Osteomyelitis | | | | | [address] | of metatarsal | | | | | | ([facility]); 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 The patient was admitted to regular medical floor and started on optimal medical management . On-call hand loom weaver (Dr. Ruelas) recommended continued medical management. Patient [...] inferior defect with partial improvement at rest driver recruiter was i nformed by hospitalist colleague recommended [...] their primary care provider within 1 w squaxin after discharge, follow-up with ID in 2 weeks after discharge, follow-up with vascular s minnie as per their recommendations or otherwise within 2 weeks after discharge. The patien t will need to follow-up with his outpatient hand loom weaver within 1 to 2 weeks after discharg [...] Results Results Reviewed. Discharge Information: Follow up: [address] [address] Bhanu Seaman PA-C [address] [place] [phone] In 2 weeks Jamar Manuel [place] [address] Schedule an appointment as soon as possible for a visit in 1 week Hero Gaston MD [address] [facility] [phone] Schedule an appointment as soon as possible for a visit in 2 weeks Post hospital discharge follow-up Dr. New Ruelas [address] [facility] [phone] Schedule an appointment as soon as possible [...] numbness Complications from anesthesia Date Last Reviewed: 08/20/201519994150-0247 [employer]. [address] [place] [address], [place] [address]. All righ ts reserved. This information is [...] Wakefield PA-C - 04/21/2019 8:21 AM PST [facility] Service: Vascular Surgery Progress Note SUBJECTIVE Patient Summary: 74 y.o. man with complex medical issues and LE ischemic ulcers, he wa s recently admitted to the [facility] from 03/28/19 to 04/04/19 where he was treated/ diagnosed with systolic heart failure, type 2 AZ/NSTEMI, SHAE, ARF. O2 desaturation brought him from SNF [place] [facility] and current admission today with CHF and [...] Holliday RN - 04/20/2019 4:40 PM PST [facility] Service: Wound Care Follow Up Note Hospital [...] Primary Wound Type: Diabetic Ulcer Side: Left [place] ation: lateral Location: foot Wound Subtype: ulceration, [...] M D - 04/20/2019 2:16 PM PST [facility] Service: Hospitalist Progress Note Pt: Reagan Shepard [...] hematuria. Recent history notable for admit to [facility] from 03/28/19 to 04/04/2019 for CHF exacerbation with eventual dischar ge to [facility]. He then re-presented to same hospital due [...] encounter as of 01/31/20-14:16 IMAGING: Reviewed in [facility], no new results. PROBLEM LIST Principal [...] Received 8 days of IV antibiotics at [facility] discharged home on with augmentin, now readmitted on 04/06 at [facility] and started on rocephin after [...] SQH Code status: Full Dispo: back to [facility] pending recovery from vascular bypass surgery (okay to go [facility] vascular surgery perspective), final ID [...] therapy as indicated. Thank You, Rosendo SquiresD, [facility]ENTER[facility] 04/20/19 1:52 PM Nandini Sánchez se, MD - 04/20/2019 8:56 AM PST [facility] Service: Infectious Diseases Progress Note Hospital Day: [...] Component Value Units Date/Time Culture, Wound, Superficial [[id number]] (Abnormal) (Susceptibility) Collected: 04/06/19 1546 Order Status: Completed Lab Status: Final result Updated: 04/11/19 2728 Specimen: Body Fluid from Heel, Right Special Requests LT FOOT Special Requests Testing performed at [facility];[address] [place] [address];[place] [address] RESULT -- 1+ ENTEROCOCCUS FAECALIS Aminoglycosides (except [...] Sensitive SUSCEPTIBLE JESSICA Final Testing performed at [facility], [address] [place] [address] Culture, Wound, Superficial [[id number]] Collected: 04/06/19 1546 Order Status: Completed Lab Status: Final result Updated: 04/08/19 0937 Specimen: Body Fluid from Heel, Right Special Requests RIGHT FOOT Special Requests Testing performed at [facility];[address] [place] [address] RESULT -- 1+ NORMAL SKIN CELSA ISOLATED RESULT NO FURTHER WORKUP RESULT Testing performed at [facility], [address] [place] [address] Comment: Testing performed at [facility], [address] [place] [address] Microbiology Results (72 hrs) No results found [...] check complete. Sheila Cabrera RN unshine Love, [facility] - 04/19/2019 3:23 PM PSTFormatting of [...] Shaver MD - 04/19/2019 2:46 PM PST [facility] Service: Hospitalist Progress Note Pt: Reagan Shepard [...] hematuria. Recent history notable for admit to [facility] from 03/28/19 to 04/04/2019 for CHF exacerbation with eventual dischar ge to [facility]. He then re-presented to same hospital due [...] Received 8 days of IV antibiotics at [facility] discharged home on with augmentin, now readmitted on 04/06 at [facility] and started on rocephin after [...] SQH Code status: Full Dispo: back to [facility] pending recovery from vascular bypass surgery, final ID recs , tentatively planning for ~04/21 Grover Charles MD 2:46 PM 04/19/2019 Portions of this chart may have been copied from previous notes for continuity of care purp ose Hero Sánchez MD - 04/19/2019 9:53 AM PSTFormatting of this note might be different from the [facility]: Infectious Diseases Progress Note [...] Component Value Units Date/Time Culture, Wound, Superficial [[id number]] (Abnormal) (Susceptibility) Collected: 04/06/191545 Order Status: Completed Lab Status: Final result Updated: 04/11/1928 Specimen: Body Fluid from Heel, Right Special Requests LT FOOT Special Requests Testing performed at [facility];[address] [place] [address] RESULT -- 1+ ENTEROCOCCUS FAECALIS Aminoglycosides (except [...] Sensitive SUSCEPTIBLE JESSICA Final Testing performed at [facility], [address] [place] [address] Culture, Wound, Superficial [[id number]] Collected: 04/06/191545 Order Status: Completed Lab Status: Final result Updated: 04/08/1937 Specimen: Body Fluid from Heel, Right Special Requests RIGHT FOOT Special Requests Testing performed at [facility];[address] [place] [address] RESULT -- 1+ NORMAL SKIN CELSA ISOLATED RESULT NO FURTHER WORKUP RESULT Testing performed at [facility], [address] [place] [address] Comment: Testing performed at [facility], [address] [place] [address] Culture, Blood [[id number]] Collected: 04/06/19337 Order Status: Completed Lab Status: Final result Updated: 04/12/1952 Specimen: Peripheral Blood Special Requests R WRIST Special Requests Testing performed at [facility];[address] [place] [address] RESULT NO GROWTH 6 DAYS RESULT Testing performed at [facility], [address] [place] [address] Comment: Testing performed at [facility], [address] [place] [address] Culture, Blood [[id number]] Collected: 04/06/19330 Order Status: Completed Lab Status: Final result Updated: 04/12/1952 Specimen: Peripheral Blood Special Requests L WRIST Special Requests Testing performed at [facility];[address] [place] [address]34 RESULT NO GROWTH 6 DAYS RESULT Testing performed at [facility], [address] [place] [address] Comment: Testing performed at [facility], [address] [place] [address]62 Microbiology Results (72 hrs) No results found [...] might be different from the o riginal. [facility] Service: Vascular Surgery Progress Note SUBJECTIVE Patient Summary: 74 y.o. man with complex medical issues and LE ischemic ulcers, he wa s recently admitted to the [facility] from 03/28/19 to 04/04/19 where he was treated/ diagnosed with systolic heart failure, type 2 AZ/NSTEMI, SHAE, ARF. O2 desaturation brought him from SNF to [facility] and current admission today with CHF and [...] Rachel Altamirano RN - 04/19/2019 5:46 AM [id number] left foot dressing change complete per order. [...] Grover Shaver MD - 4:52 PM PST [facility] Service: Hospitalist Progress Note Pt: Reagan Shepard AGE/SEX: 74 y.o. male ROOM: [facility] OR INTRA OP POOL/[facility] : 1945 PCP: Jamar Manuel MD ADMIT DATE: 04/06/2019 TODAY'S DATE: 04/18/2019 Hospital Day/Hospital Course: LOS: 12 days Mr. Shepard is a 74-year-old gentleman with a history of bilateral nonhealing diabetic trisha t ulcers, and history of TBI, stroke, insulin dependent DM, who presents with CHF exacerbati on with hospital course complicated by gross hematuria. Recent history notable for admit to [facility] from 03/28/19 to 04/04/2019 for CHF exacerbation with eventual dischar ge to [facility]. He then re-presented to same hospital due [...] the last 72 hours. IMAGING: Reviewed in thePlatform, no new results. PROBLEM LIST Principal Problem: [...] Received 8 days of IV antibiotics at [facility] discharged home on with augmentin, now readmitted on 04/06 at [facility] and started on rocephin after [...] SQH Code status: Full Dispo: back to [facility] pending cardiac evaluation/optimization, vascular bypass donna wero, [...] might be different from t kevin original. [facility] Service: Infectious Diseases Progress Note Hospital Day: [...] Component Value Units Date/Time Culture, Wound, Superficial [[id number]] (Abnormal) (Susceptibility) Collected: 04/06/191545 Order Status: Completed Lab Status: Final result Updated: 04/11/1928 Specimen: Body Fluid from Heel, Right Special Requests LT FOOT Special Requests Testing performed at [facility];[address] [place] [address] RESULT -- 1+ ENTEROCOCCUS FAECALIS Aminoglycosides (except [...] Sensitive SUSCEPTIBLE JESSICA Final Testing performed at [facility], [address] [place] [address] Culture, Wound, Superficial [[id number]] Collected: 04/06/191545 Order Status: Completed Lab Status: Final result Updated: 04/08/19 0937 Specimen: Body Fluid from Heel, Right Special Requests RIGHT FOOT Special Requests Testing performed at [facility];[address] [place] [address] RESULT -- 1+ NORMAL SKIN CELSA ISOLATED RESULT NO FURTHER WORKUP RESULT Testing performed at [facility], [address] [place] [address] Comment: Testing performed at [facility], [address] [place] [address] Culture, Blood [[id number]] Collected: 04/06/19337 Order Status: Completed Lab Status: Final result Updated: 04/12/1952 Specimen: Peripheral Blood Special Requests R WRIST Special Requests Testing performed at [facility];[address] [place] [address] RESULT NO GROWTH 6 DAYS RESULT Testing performed at [facility], [address] [place] [address] Comment: Testing performed at [facility], [address] [place] [address]603 Culture, Blood [[id number]] Collected: 04/06/19330 Order Status: Completed Lab Status: Final result Updated: 04/12/1952 Specimen: Peripheral Blood Special Requests L WRIST Special Requests Testing performed at [facility];[address] [place] [address] RESULT NO GROWTH 6 DAYS RESULT Testing performed at [facility], [address] [place] [address] Comment: Testing performed at [facility], [address] [place] [address] 12863 Microbiology Results (72 hrs) No results found [...] might be different from the o riginal. [facility] Service: Vascular Surgery Progress Note SUBJECTIVE Patient Summary: 74 y.o. man with complex medical issues and LE ischemic ulcers, he wa s recently admitted to the [facility] from 03/28/19 to 04/04/19 where he was treated/ diagnosed with systolic heart failure, type 2 AZ/NSTEMI, SHAE, ARF. O2 desaturation brought him from SNF to [facility] and current admission today with CHF and [...] of feet - [facility]. Cryovein is in [...] of shift chart check review Sunshine Chen, [facility] - 04/17/2019 1:38 PM PST Vancomycin [...] Shaver MD - 04/17/2019 12:25 PM PST [facility] Service: Hospitalist Progress Note Pt: Reagan Shepard [...] hematuria. Recent history notable for admit to [facility] from 03/28/19 to 04/04/2019 for CHF exacerbation with eventual dischar ge to [facility]. He then re-presented to same hospital due [...] Received 8 days of IV antibiotics at [facility] discharged home on with augmentin, now readmitted on 04/06 at [facility] and started on rocephin after [...] SQH Code status: Full Dispo: back to [facility] pending cardiac evaluation/optimization, vascular bypass donna wero, final ID recs, tentatively planning for ~04/21 Grover Charles MD 12:25 PM 04/17/2019 Portions of this chart may have been copied from previous notes for continuity of care purp ose Rico Modi MD - 11:19 AM PST [facility] Service: Cardiology/[facility] Interventional cardiology note RE: Reagan [...] minimal reversib ility 2. Recent non-Q wave AZ 3. Severe peripheral vascular disease 4. Diabetes [...] might be different from the heidi razo. [facility] Service: Infectious Diseases Progress Note Hospital Day: [...] Component Value Units Date/Time Culture, Wound, Superficial [[id number]] (Abnormal) (Susceptibility) Collected: 04/06/191545 Order Status: Completed Lab Status: Final result Updated: 04/11/1928 Specimen: Body Fluid from Heel, Right Special Requests LT FOOT Special Requests Testing performed at [facility];[address] [place] [address];[place] [address] RESULT -- 1+ ENTEROCOCCUS FAECALIS Aminoglycosides (except [...] Sensitive SUSCEPTIBLE JESSICA Final Testing performed at [facility], [address] [place] [address], [place] [address] Culture, Wound, Superficial [[id number]] Collected: 04/06/191545 Order Status: Completed Lab Status: Final result Updated: 04/08/19 0937 Specimen: Body Fluid from Heel, Right Special Requests RIGHT FOOT Special Requests Testing performed at [facility];[address] [place] [address];[place] [address] RESULT -- 1+ NORMAL SKIN CELSA ISOLATED RESULT NO FURTHER WORKUP RESULT Testing performed at [facility], [address] [place] [address] Comment: Testing performed at [facility], [address] [place] [address] Culture, Blood [[id number]] Collected: 04/06/19337 Order Status: Completed Lab Status: Final result Updated: 04/12/19651 Specimen: Peripheral Blood Special Requests R WRIST Special Requests Testing performed at [facility];[address] [place] [address] 21659 RESULT NO GROWTH 6 DAYS RESULT Testing performed at [facility], [address] [place] [address] Comment: Testing performed at [facility], [address] [place] [address] Culture, Blood [[id number]] Collected: 04/06/19330 Order Status: Completed Lab Status: Final result Updated: 04/12/1952 Specimen: Peripheral Blood Special Requests L WRIST Special Requests Testing performed at [facility];[address] [place] [address] RESULT NO GROWTH 6 DAYS RESULT Testing performed at [facility], [address] [place] [address] Comment: Testing performed at [facility], [address] [place] [address]11 Microbiology Results (72 hrs) No results found [...] might be different from the o riginal. [facility] Service: Vascular Surgery Progress Note SUBJECTIVE Patient Summary: 74 y.o. man with complex medical issues and LE ischemic ulcers, he wa s recently admitted to the [facility] from 03/28/19 to 04/04/19 where he was treated/ diagnosed with systolic heart failure, type 2 AZ/NSTEMI, SHAE, ARF. O2 desaturation brought him from SNF to [facility] and current admission today with CHF and [...] Sánchez MD - 04/16/2019 6:49 PM PST [facility] Service: Infectious Diseases Progress Note Hospital Day: [...] Component Value Units Date/Time Culture, Wound, Superficial [[id number]] (Abnormal) (Susceptibility) Collected: 04/06/19 1546 Order Status: Completed Lab Status: Final result Updated: 04/11/19 0728 Specimen: Body Fluid from Heel, Right Special Requests LT FOOT Special Requests Testing performed at [facility];[address] [place] [address];[place] [address] RESULT -- 1+ ENTEROCOCCUS FAECALIS Aminoglycosides (except [...] Sensitive SUSCEPTIBLE JESSICA Final Testing performed at [facility], [address] [place] [address] Culture, Wound, Superficial [[id number]] Collected: 04/06/19 1546 Order Status: Completed Lab Status: Final result Updated: 04/08/1937 Specimen: Body Fluid from Heel, Right Special Requests RIGHT FOOT Special Requests Testing performed at [facility];[address] [place] [address] RESULT -- 1+ NORMAL SKIN CELSA ISOLATED RESULT NO FURTHER WORKUP RESULT Testing performed at [facility], [address] [place] [address] Comment: Testing performed at [facility], [address] [place] [address] Culture, Blood [[id number]] Collected: 04/06/19337 Order Status: Completed Lab Status: Final result Updated: 04/12/1952 Specimen: Peripheral Blood Special Requests R WRIST Special Requests Testing performed at [facility];[address] [place] [address] RESULT NO GROWTH 6 DAYS RESULT Testing performed at [facility], [address] [place] [address] Comment: Testing performed at [facility], [address] [place] [address]42 Culture, Blood [[id number]] Collected: 04/06/19 0331 Order Status: Completed Lab Status: Final result Updated: 04/12/19 0652 Specimen: Peripheral Blood Special Requests L WRIST Special Requests Testing performed at [facility];[address] [place] [address];[place] [address] RESULT NO GROWTH 6 DAYS RESULT Testing performed at [facility], [address] [place] [address] Comment: Testing performed at [facility], [address] [facility], [place] [address] Microbiology Results (72 hrs) No results found [...] note might be different from the original. [facility] Service: Hospitalist Progress Note Pt: Reagan Shepard [...] hematuria. Recent history notable for admit to [facility] from 03/28/19 to 04/04/2019 for CHF exacerbation with eventual dischar ge to [facility]. He then re-presented to same hospital due [...] Received 8 days of IV antibiotics at [facility] discharged home on with augmentin, now readmitted on 04/06 at [facility] and started on rocephin after [...] SQH Code status: Full Dispo: back to [facility] pending cardiac evaluation/optimization, vascular bypass donna wero, [...] Rodrigez RD 04/16/2019 3:21 PM Sunshine Chen, [facility] - 04/16/2019 12:18 PM PST Vancomycin [...] encouraged to discuss medication changes with hand loom weaver ragini stanley to stopping medications or making any changes. Patient's questions answered. Heart Fail ure Hot Line number provided to patient. Face to face time was spent with patient providing counseling and education for congestive heart failure. Bhanu Wakefield P A-C - 04/16/2019 8:43 AM PST [facility] Service: Vascular Surgery Progress Note SUBJECTIVE Patient Summary: 74 y.o. man with complex medical issues and LE ischemic ulcers, he wa s recently admitted to the [facility] from 03/28/19 to 04/04/19 where he was treated/ diagnosed with systolic heart failure, type 2 AZ/NSTEMI, SHAE, ARF. O2 desaturation brought him from SNF to [facility] and current admission today with CHF and [...] MD - 04/15/2019 1 2:48 PM PST [facility] Service: Hospitalist Progress Note Pt: Reagan Shepard AGE/SEX: 74 y.o. male ROOM: [address] [place] [address] : 1945 PCP: Jamar Manuel MD ADMIT DATE: 04/06/2019 TODAY'S DATE: 04/15/2019 Hospital Day/Hospital Course: LOS: 9 days Mr. Shepard is a 74-year-old gentleman with a history of bilateral nonhealing diabetic trisha t ulcers, and history of TBI, stroke, insulin dependent DM, who presents with CHF exacerbati on with hospital course complicated by gross hematuria. Recent history notable for admit to [facility] from 03/28/19 to 04/04/2019 for CHF exacerbation with eventual dischar ge to [facility]. He then re-presented to same hospital due [...] 04/14/19 0629 BNP 587.58* IMAGING: Reviewed in [facility], no new results. PROBLEM LIST Principal [...] risk stratification . -cardiology consulted -NPO at [place] for nuc med stress test in morning [...] Received 8 days of IV antibiotics at [facility] discharged home on with augmentin, now readmitted on 04/06 at [facility] and started on rocephin after [...] SQH Code status: Full Dispo: back to [facility] pending cardiac evaluation/optimization, vascular bypass donna wero, final ID recs, likely 4-5 more days in hospital Grover Charles MD 12:48 PM 04/15/2019 Portions of this chart may have been copied from previous notes for continuity of care purp ose roctor, Sheila Brown [facility] - 04/15/2019 10:55 AM PST Vancomycin [...] as indicated. Thank You, Sheila Ahuja, PharmD, [facility] 04/15/2019, 10:41 AM Simba Fenton MD - [...] might be differ ent from the original. [facility] Service: Infectious Diseases Progress Note Hospital Day: [...] Component Value Units Date/Time Culture, Wound, Superficial [[id number]] (Abnormal) (Susceptibility) Collected: 04/06/19 1546 Order Status: Completed Lab Status: Final result Updated: 04/11/19 7343 Specimen: Body Fluid from Heel, Right Special Requests LT FOOT Special Requests Testing performed at [facility];[address] [place] [address];[place] [address] RESULT -- 1+ ENTEROCOCCUS FAECALIS Aminoglycosides (except [...] Sensitive SUSCEPTIBLE JESSICA Final Testing performed at [facility], [address] [place] [address] Culture, Wound, Superficial [[id number]] Collected: 04/06/19 1546 Order Status: Completed Lab Status: Final result Updated: 04/08/19 0937 Specimen: Body Fluid from Heel, Right Special Requests RIGHT FOOT Special Requests Testing performed at [facility];[address] [place] [address] RESULT -- 1+ NORMAL SKIN CELSA ISOLATED RESULT NO FURTHER WORKUP RESULT Testing performed at [facility], [address] [place] [address] 36898 Comment: Testing performed at [facility], [address] [place] [address] Culture, Blood [[id number]] Collected: 04/06/198 Order Status: Completed Lab Status: Final result Updated: 04/12/19 0652 Specimen: Peripheral Blood Special Requests R WRIST Special Requests Testing performed at [facility];[address] [place] [address] 63541 RESULT NO GROWTH 6 DAYS RESULT Testing performed at [facility], [address] [place] [address] 9[address] Comment: Testing performed at [facility], [address] [place] [address] 91425 Culture, Blood [[id number]] Collected: 04/06/19 033 Order Status: Completed Lab Status: Final result Updated: 04/12/19 0652 Specimen: Peripheral Blood Special Requests L WRIST Special Requests Testing performed at [facility];[address] [facility];[place] [address] RESULT NO GROWTH 6 DAYS RESULT Testing performed at [facility], [address] [place] [address] Comment: Testing performed at [facility], [address] [place] [address] Microbiology Results (72 hrs) No results found [...] Reagan Shepard AGE/SEX: 74 y.o. male ROOM: [facility]/4452- : 1945 PCP: Jamar Manuel MD ADMIT DATE: 04/06/2019 TODAY'S DATE: 04/14/2019 Hospital Day/Hospital Course: LOS: 8 days Mr. Shepard is a 74-year-old gentleman with a history of bilateral nonhealing diabetic trisha t ulcers, and history of TBI, stroke, insulin dependent DM, who presents with CHF exacerbati on with hospital course complicated by gross hematuria. Recent history notable for admit to [facility] from 03/28/19 to 04/04/2019 for CHF exacerbation with eventual dischar ge to [facility]. He then re-presented to same hospital due [...] Received 8 days of IV antibiotics at [facility] discharged home on with augmentin, now readmitted on 04/06 at [facility] and started on rocephin after [...] date with age appropriate cancer screening PPx: [facility] Code status: Full Dispo: back to [facility] pending improvement in gross hematuria, CHF exacerbation, re peat angiogram, final ID recs, likely 4-5 more days in hospital Grover Charles MD 1:29 PM 04/14/2019 Portions of this chart may have been copied from previous notes for continuity of care purp ose Lyric Molina RN - 04/14/2019 1:27 PM PST [facility] Service: Wound Care Follow Up Note Hospital [...] [facility] Inpatient Wound Ostomy Care [phone] 04/14/2019 1:29 PM Dheeraj Barraza, PT - [...] far vs stable.Vandana Luciano RN Meghan Alejandre [facility] - 04/14/2019 6:31 AM PST Vancomycin [...] Shaver MD - 04/13/2019 4:02 PM PST [facility] Service: Hospitalist Progress Note Pt: Reagan Shepard [...] hematuria. Recent history notable for admit to [facility] from 03/28/19 to 04/04/2019 for CHF exacerbation with eventual dischar ge to [facility]. He then re-presented to same hospital due [...] Received 8 days of IV antibiotics at [facility] discharged home on with augmentin, now readmitted on 04/06 at [facility] and started on rocephin after [...] date with age appropriate cancer screening PPx: [facility] Code status: Full Dispo: back to [facility] pending improvement in gross hematuria, CHF exacerbation, [...] kg Adjusted body weight: 89.1 kg [place] body weight: 73 kg Current Vital Signs: [...] due to [facility]. Drawing a level once the [...] You, Sunshine Love, PharmD, [facility] 04/13/19 3:20 PM Nandini Sánchez se, MD - 04/13/2019 10:54 AM PST [facility] Service: Infectious Diseases Progress Note Hospital Day: [...] Component Value Units Date/Time Culture, Wound, Superficial [[id number]] (Abnormal) (Susceptibility) Collected: 04/06/19 1546 Order Status: Completed Lab Status: Final result Updated: 04/11/1928 Specimen: Body Fluid from Heel, Right Special Requests LT FOOT Special Requests Testing performed at [facility];[address] [place] [address];[place] [address] RESULT -- 1+ ENTEROCOCCUS FAECALIS Aminoglycosides (except [...] Sensitive SUSCEPTIBLE JESSICA Final Testing performed at [facility], [address] [place] [address], [place] [address] Culture, Wound, Superficial [[id number]] Collected: 04/06/19 1546 Order Status: Completed Lab Status: Final result Updated: 04/08/19 0937 Specimen: Body Fluid from Heel, Right Special Requests RIGHT FOOT Special Requests Testing performed at [facility];[address] [place] [address] 06846 RESULT -- 1+ NORMAL SKIN CELSA ISOLATED RESULT NO FURTHER WORKUP RESULT Testing performed at [facility], [address] [place] [address] 13357 Comment: Testing performed at [facility], [address] [place] [address] 14624 Culture, Blood [[id number]] Collected: 04/06/19 0338 Order Status: Completed Lab Status: Final result Updated: 04/12/19 0652 Specimen: Peripheral Blood Special Requests R WRIST Special Requests Testing performed at [facility];[address] [place] [address] 30526 RESULT NO GROWTH 6 DAYS RESULT Testing performed at [facility], [address] [place] [address] 9[address] Comment: Testing performed at [facility], [address] [place] [address] 01240 Culture, Blood [[id number]] Collected: 04/06/19 0331 Order Status: Completed Lab Status: Final result Updated: 04/12/19 0652 Specimen: Peripheral Blood Special Requests L WRIST Special Requests Testing performed at [facility];[address] [place] [address] 21701 RESULT NO GROWTH 6 DAYS RESULT Testing performed at [facility], [address] [place] [address] 399[address] Comment: Testing performed at [facility], [address] [place] [address] 43771 Microbiology Results (72 hrs) No results found [...] might be different from the o riginal. [facility] Service: Vascular Surgery Progress Note SUBJECTIVE Patient Summary: 74 y.o. man with complex medical issues and LE ischemic ulcers, he wa s recently admitted to the [facility] from 03/28/19 to 04/04/19 where he was treated/ diagnosed with systolic heart failure, type 2 AZ/NSTEMI, SHAE, ARF. O2 desaturation brought him from SNF to [facility] and current admission today with CHF and [...] risks. Signed consent obtained. Will proceed to [facility] today for right leg angiogram. Moderate Sedation [...] might be different from the o riginal. [facility] Service: Infectious Diseases Progress Note Hospital Day: [...] Component Value Units Date/Time Culture, Wound, Superficial [[id number]] (Abnormal) (Susceptibility) Collected: 04/06/19 1546 Order Status: Completed Lab Status: Final result Updated: 04/11/19 0728 Specimen: Body Fluid from Heel, Right Special Requests LT FOOT Special Requests Testing performed at [facility];[address] [place] [address];[place] [address] RESULT -- 1+ ENTEROCOCCUS FAECALIS Aminoglycosides (except [...] Sensitive SUSCEPTIBLE JESSICA Final Testing performed at [facility], [address] [place] [address]2723 Culture, Wound, Superficial [[id number]] Collected: 04/06/19 1546 Order Status: Completed Lab Status: Final result Updated: 04/08/1937 Specimen: Body Fluid from Heel, Right Special Requests RIGHT FOOT Special Requests Testing performed at [facility];[address] [place] [address]9775 RESULT -- 1+ NORMAL SKIN CELSA ISOLATED RESULT NO FURTHER WORKUP RESULT Testing performed at [facility], [address] [place] [address] Comment: Testing performed at [facility], [address] [place] [address] Culture, Blood [[id number]] Collected: 04/06/19337 Order Status: Completed Lab Status: Final result Updated: 04/12/1952 Specimen: Peripheral Blood Special Requests R WRIST Special Requests Testing performed at [facility];[address] [place] [address] 88627 RESULT NO GROWTH 6 DAYS RESULT Testing performed at [facility], [address] [place] [address] Comment: Testing performed at [facility], [address] [place] [address] 33336 Culture, Blood [[id number]] Collected: 04/06/19 0331 Order Status: Completed Lab Status: Final result Updated: 04/12/1952 Specimen: Peripheral Blood Special Requests L WRIST Special Requests Testing performed at [facility];[address] [place] [address]153 RESULT NO GROWTH 6 DAYS RESULT Testing performed at [facility], [address] [place] [address] Comment: Testing performed at [facility], [address] [place] [address] Microbiology Results (72 hrs) No results found [...] this note might be different from the [facility] Service: Hospitalist Progress Note [...] hematuria. Recent history notable for admit to [facility] from 03/28/19 to 04/04/2019 for CHF exacerbation with eventual dischar ge to [facility]. He then re-presented to same hospital due [...] Received 8 days of IV antibiotics at [facility] discharged home on with augmentin, now readmitted on 04/06 at [facility] and started on rocephin after [...] H Code status: Full Dispo: back to [facility] pending improvement in gross hematuria, CHF exacerbation, re peat angiogram, final ID recs, likely 4-5 more days in hospital Grover Charles MD 4:43 PM 04/12/2019 Portions of this chart may have been copied from previous notes for continuity of care purp ose Bhanu Wakefield PA-C - 04/12/2019 4:00 PM PST [facility] Service: Vascular Surgery Progress Note SUBJECTIVE Patient Summary: 74 y.o. man with complex medical issues and LE ischemic ulcers, he wa s recently admitted to the [facility] from 03/28/19 to 04/04/19 where he was treated/ diagnosed with systolic heart failure, type 2 AZ/NSTEMI, SHAE, ARF. O2 desaturation brought him from SNF to [facility] and current admission today with CHF and [...] Bhanu Seaman PA-C Vascular Surgery unshine Love, [facility] - 04/12/2019 12:27 PM PST Vancomycin Dosing Per Pharmacy Subjective/Objective Reagan Shepard is a 74 y.o. 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 Additional antimicrobials: zosyn Quadriplegic/Paraplegic: no Diabetes: yes Baseline Serum Creatinine: 0.6 mg/dL Actual weight: 113.3 kg Adjusted body weight: 89.1 kg [place] body weight: 73 kg Current Vital Signs: [...] Shaver MD - 04/11/2019 5:06 PM PST [facility] Service: Hospitalist Progress Note Pt: Reagan Shepard [...] hematuria. Recent history notable for admit to [facility] from 03/28/19 to 04/04/2019 for CHF exacerbation with eventual dischar ge to [facility]. He then re-presented to same hospital due [...] Received 8 days of IV antibiotics at [facility] discharged home on with augmentin, now readmitted on 04/06 at [facility] and started on rocephin after [...] above) Code status: Full Dispo: back to [facility] pending improvement in gross hematuria and CHF exacerbation Grover Charles MD 5:06 PM 04/11/2019 Portions of this chart may have been copied from previous notes for continuity of care purp ose roctor, Sheila Brown [facility] - 04/11/2019 2:03 PM PST Vancomycin Dosing Per Pharmacy Subjective/Objective Reagan Shepard is a 74 y.o. 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 Additional antimicrobials: zosyn Quadriplegic/Paraplegic: no Diabetes: yes Baseline Serum Creatinine: 0.6 mg/dL Actual weight: 113.3 kg Adjusted body weight: 89.1 kg [place] body weight: 73 kg Current Vital Signs: [...] q12h (14 mg/kg/dose) Rationale: Based on [facility] dosing nomogram, current renal function, and desired [...] might be different from stephanie brown original. [facility] Service: Infectious Diseases Progress Note Hospital Day: [...] Component Value Units Date/Time Culture, Wound, Superficial [[id number]] (Abnormal) (Susceptibility) Collected: 04/06/191545 Order Status: Completed Lab Status: Final result Updated: 04/11/19 0728 Specimen: Body Fluid from Heel, Right Special Requests LT FOOT Special Requests Testing performed at [facility];[address] [place] [address]64 RESULT -- 1+ ENTEROCOCCUS FAECALIS Aminoglycosides (except [...] Sensitive SUSCEPTIBLE JESSICA Final Testing performed at [facility], [address] [place] [address] 99622 Culture, Wound, Superficial [[id number]] Collected: 04/06/191545 Order Status: Completed Lab Status: Final result Updated: 04/08/19 0937 Specimen: Body Fluid from Heel, Right Special Requests RIGHT FOOT Special Requests Testing performed at [facility];[address] [place] [address]45 RESULT -- 1+ NORMAL SKIN CELSA ISOLATED RESULT NO FURTHER WORKUP RESULT Testing performed at [facility], [address] [place] [address] Comment: Testing performed at [facility], [address] [place] [address] 59318 Culture, Blood [[id number]] Collected: 04/06/19337 Order Status: Completed Lab Status: Preliminary result Updated: 04/07/19812 Specimen: Peripheral Blood Special Requests R WRIST Special Requests Testing performed at [facility];[address] [place] [address] 41468 RESULT NO GROWTH AT THIS TIME RESULT Testing performed at [facility], [address] [place] [address] 6[address]32 Comment: Testing performed at [facility], [address] [place] [address] 46349 Culture, Blood [[id number]] Collected: 04/06/19330 Order Status: Completed Lab Status: Preliminary result Updated: 04/07/19812 Specimen: Peripheral Blood Special Requests L WRIST Special Requests Testing performed at [facility];[address] [place] [address] 62340 RESULT NO GROWTH AT THIS TIME RESULT Testing performed at [facility], [address] [place] [address] 59003 Comment: Testing performed at [facility], [address] [place] [address] 32502 Microbiology Results (72 hrs) No results found [...] Shaver MD - 04/10/2019 4:51 PM PST [facility] Service: Hospitalist Progress Note Pt: Reagan Shepard [...] hematuria. Recent history notable for admit to [facility] from 03/28/19 to 04/04/2019 for CHF exacerbation with eventual dischar ge to [facility]. He then re-presented to same hospital due [...] Received 8 days of IV antibiotics at [facility] discharged home on with augmentin, now readmitted on 04/06 at [facility] and started on rocephin after [...] above) Code status: Full Dispo: back to [facility] pending improvement in gross hematuria and CHF exacerbation Grover Charles MD 4:51 PM 04/10/2019 Portions of this chart may have been copied from previous notes for continuity of care purp ose Hero Sánchez MD - 04/10/2019 2:27 PM PSTFormatting of this note might be different from the [facility]: Infectious Diseases Progress Note [...] Component Value Units Date/Time Culture, Wound, Superficial [[id number]] (Abnormal) (Susceptibility) Collected: 04/06/19 1546 Order Status: Completed Lab Status: Preliminary result Updated: 04/10/19 0930 Specimen: Body Fluid from Heel, Right Special Requests LT FOOT Special Requests Testing performed at [facility];[address] [place] [address] 78757 RESULT -- 1+ ENTEROCOCCUS FAECALIS Aminoglycosides (except for high-level resistance testing), cephalosporins, clindamycin, an d trimethoprim-sulfamethoxazole may appear active in vitro but they are not effective clinic ally. RESULT -- 1+ ENTEROBACTER CLOACAE COMPLEX RESULT -- 1+ STAPHYLOCOCCUS AUREUS RESULT SUSCEPTIBILITY TO FOLLOW RESULT Testing performed at [facility], [address] [place] [address] 68500 Susceptibility Enterococcus faecalis (1) Antibiotic Interpretation Microscan [...] Sensitive SUSCEPTIBLE JESSICA Preliminary Testing performed at [facility], [address] [place] [address] 93948 Culture, Wound, Superficial [[id number]] Collected: 04/06/191545 Order Status: Completed Lab Status: Final result Updated: 04/08/19 0937 Specimen: Body Fluid from Heel, Right Special Requests RIGHT FOOT Special Requests Testing performed at [facility];[address] [place] [address] 77815 RESULT -- 1+ NORMAL SKIN CELSA ISOLATED RESULT NO FURTHER WORKUP RESULT Testing performed at [facility], [address] [place] [address]97 Comment: Testing performed at [facility], [address] [place] [address] 65530 Culture, Blood [[id number]] Collected: 01/337 Order Status: Completed Lab Status: Preliminary result Updated: 04/07/19812 Specimen: Peripheral Blood Special Requests R WRIST Special Requests Testing performed at [facility];[address] [place] [address] 12797 RESULT NO GROWTH AT THIS TIME RESULT Testing performed at [facility], [address] [place] [address] 73348 Comment: Testing performed at [facility], [address] [place] [address] 37096 Culture, Blood [[id number]] Collected: 04/06/19330 Order Status: Completed Lab Status: Preliminary result Updated: 04/07/19812 Specimen: Peripheral Blood Special Requests L WRIST Special Requests Testing performed at [facility];[address] [place] [address] 09605 RESULT NO GROWTH AT THIS TIME RESULT Testing performed at [facility], [address] [place] [address] 91608 Comment: Testing performed at [facility], [address] [place] [address] 72822 Microbiology Results (72 hrs) No results found [...] might be different from the ramiro falcon [facility] Service: Urology Progress Note Hospital Day: LOS: [...] essential h ypertension, insulin-dependent diabetes, history of AZ, GERD, ischemic stroke, diffuse signi ficant peripheral [...] Lujan MD - 04/09/2019 6:21 PM PST [facility] Service: Urology Progress Note Hospital Day: LOS: 3 days Post-Op Day: * No surgery found * SUBJECTIVE Events Overnight: This 74-year-old gentleman with a known history of insulin-dependen t diabetes mellitus, advanced peripheral vascular disease, osteomyelitis of right foot, diab etic foot ulcers which are significant and advanced in both feet, left hemiparesis, essentia l hypertension, hyperkalemia, history of GERD and non-STEMI AZ, history of bacteremia, histo ry of stroke. [...] Color, UA STRAW Clarity, UA CLEAR Specific [place], Urine 1.006 1.002 - 1.030 Leukocyte esterase, [...] of congestive failure. Signed by: Madison Solis, [facility] Sign Date/Time: 04/09/2019 9:25 AM [...] longstanding history of diabetes, hypertension, GERD, [place] left hemiparesis, essential hypertension and very advanced [...] the morning. Code Status: Full Code Aleksander Motniel MD 04/09/[address] - 04/09/2019 [...] might be different from the terry miller [facility] Service: Vascular Surgery Progress Note SUBJECTIVE Patient Summary: 74 y.o. man with complex medical issues and LE ischemic ulcers, he wa s recently admitted to the [facility] from 03/28/19 to 04/04/19 where he was treated/ diagnosed with systolic heart failure, type 2 AZ/NSTEMI, SHAE, ARF. O2 desaturation brought him from SNF to [facility] and current admission today with CHF and [...] will have him scheduled for 04/12/2019 at [facility] [employer] for his first leg, then will plan [...] Hospitalist Progress Note Reagan Shepard 74 y.o. [id number] male Jamar Manuel MD Hospital Day: LOS: 3 days Patient Summary: 74-year-old gentleman with past medical history of bilateral nonheali ng diabetic foot ulcer, and history of traumatic brain injury, stroke, diabetes mellitus typ e 2 insulin-dependent who was recently admitted to [facility] from 03/28/21 020 with acute hypoxic respiratory failure secondary to systolic CHF exacerbation with eject ion fraction of 40%, CTA chest negative for PE, troponin was minimally elevated 0.44 treated conservatively with medical therapy discharge to [facility] who went back to [facility] emergency department with worsening shortness of [...] 04/09/2019 1044 Gross per 24 hour Intake 30632 ml Output 9850 ml Net 856 ml [...] received 8 days of IV antibiotic at [facility] discharged home on on Augmentin readmitted on at [facility] and started on Rocephin after sending 2 [...] might be different from the o sheryl. [facility] Service: Podiatry Progress Note Hospital Day: LOS: 3 days Post-Op Day: * No surgery found * SUBJECTIVE Patient Summary: The patient is 74 y.o. male with significant cardiac and IDDM2 past medical history with recent admissions to [facility] where he was found to have el evated troponin level and he became decompensated and desaturated and was transferred to [facility] for a higher level of care. Although [...] Ady Mata RN - 04/08/2019 9:49 PM [id number]: pt a/o to all, vss. [facility] in [...] Hospitalist Progress Note Reagan Shepard 74 y.o. [id number] male Jamar Manuel MD Hospital Day: LOS: 2 days Patient Summary: 74-year-old gentleman with past medical history of bilateral nonheali ng diabetic foot ulcer, and history of traumatic brain injury, stroke, diabetes mellitus typ e 2 insulin-dependent who was recently admitted to [facility] from 03/28/21 020 with acute hypoxic respiratory failure secondary to systolic CHF exacerbation with eject ion fraction of 40%, CTA chest negative for PE, troponin was minimally elevated 0.44 treated conservatively with medical therapy discharge to [facility] who went back to [facility] emergency department with worsening shortness of [...] received 8 days of IV antibiotic at [facility] discharged home on on Augmentin readmitted on at [facility] and started on Rocephin after sending 2 [...] might be different from trina allen original. [facility] Service: Cardiology Progress Note Hospital Day: LOS: [...] Nandini Barboza RN - 04/07/2019 10:48 PM [id number]: pt a/o to all, occasionally forgetful, vss. [...] Hospitalist Progress Note Reagan Shepard 74 y.o. [id number] male Jamar Manuel MD Hospital Day: LOS: 1 day Patient Summary: 74-year-old gentleman with past medical history of bilateral nonheali ng diabetic foot ulcer, and history of traumatic brain injury, stroke, diabetes mellitus typ e 2 insulin-dependent who was recently admitted to [facility] from 03/28/21 020 with acute hypoxic respiratory failure secondary to systolic CHF exacerbation with eject ion fraction of 40%, CTA chest negative for PE, troponin was minimally elevated 0.44 treated conservatively with medical therapy discharge to [facility] who went back to [facility] emergency department with worsening shortness of [...] received 8 days of IV antibiotic at [facility] discharged home on on Augmentin readmitted on at [facility] and started on Rocephin after sending 2 [...] might be different from trina allen original. [facility] Service: Cardiology Progress Note Hospital Day: LOS: [...] Novoa RN - 04/06/2019 10:15 AM [facility] Service: Wound/Ostomy Care Progress Note Wound care [...] | right foot ([facility]) | 04/20/2019 until | | | | | | 04/20/2020 | + +---------+--------+ + + | C-Reactive Protein | Lab | Routin | Other | Weekly for 6 | | | | e | osteomyelitis of | Occurrences starting | | | | | right foot ([facility]) | 04/20/2019 until | | | | | | 04/20/2020 | + +---------+--------+ + + | Sedimentation Rate | Lab | Routin | Other | Weekly for 6 | | | | e | osteomyelitis of | Occurrences starting | | | | | right foot ([facility]) | 04/20/2019 until | | | | [...] | | | | | PST | ([facility]) Peripheral | | | | | | vascular disease | | | | | | ([facility]) Other | | | | | | osteomyelitis of | | | | | | right foot ([facility]) | | | | | | Essential | | | | | | hypertension Acute | | | | | | left hemiparesis | | | | | | ([facility]) | | + +--------+ + + + [...] | | | | performed at [facility] | | | | | | [facility];[place], [place] | | | | | | [address] | | | | + + + + + + + + | Specimen | + + | Blood | + + + + + + + | Performing | Address | City/State/Zipcode | Phone Number | | Organization | | | | + + + + + | [facility] | [address] | [place] [address] | [phone] | + + + + + POC Glucose (04/21/2019 11:54 AM PST) + + + + + + | Component | Value | Ref Range | Performed | Pathologist | | | | | At | Signature | + + + + + + | Glucose, | 164 (H)Comment: Testing | 65 - 99 mg/dL | [facility] | | | POC | performed at [facility];[address] | | LABORATORY | | | | [address];[place], [place] | | | | | | [address] | | | | + + + + + + + + | Specimen | + + | | + + + + + + + | Performing | Address | City/State/Zipcode | Phone Number | | Organization | | | | + + + + + | [facility] | [address] | [place] [address] | [phone] | + + + + + POC Glucose (04/21/2019 8:10 AM PST) + + + + + + | Component | Value | Ref Range | Performed | Pathologist | | | | | At | Signature | + + + + + + | Glucose, | 131 (H)Comment: Testing | 65 - 99 mg/dL | [facility] | | | POC | performed at [facility];[address] | | LABORATORY | | | | [address];[place] | | | | | | [address] | | | | + + + + + + + + | Specimen | + + | | + + + + + + + | Performing | Address | City/State/Zipcode | Phone Number | | Organization | | | | + + + + + | [facility] | [address] | [place] [address] | [phone] | + + + + + POC [...] | | POC | performed at [facility];[address] | | LABORATORY | | | | [address];[place], [place] | | | | | | [address] | | | | + + + + + + + + | Specimen | + + | | + + + + + + + | Performing | Address | City/State/Zipcode | Phone Number | | Organization | | | | + + + + + | [facility] | [address] | [place] [address] | [phone] | + + + + + POC [...] | | POC | performed at [facility];[address] | | LABORATORY | | | | [address];[place] | | | | | | [address] | | | | + + + + + + + + | Specimen | + + | | + + + + + + + | Performing | Address | City/State/Zipcode | Phone Number | | Organization | | | | + + + + + | [facility] | [address] | [place] [address] | [phone] | + + + + + POC [...] | | POC | performed at [facility];[address] | | LABORATORY | | | | [address];[place], [place] | | | | | | [address] | | | | + + + + + + + + | Specimen | + + | | + + + + + + + | Performing | Address | City/State/Zipcode | Phone Number | | Organization | | | | + + + + + | [facility] | [address] | [place] [address] | [phone] | + + + + + POC [...] | | POC | performed at [facility];[address] | | LABORATORY | | | | [address];[place], [place] | | | | | | [address] | | | | + + + + + + + + | Specimen | + + | | + + + + + + + | Performing | Address | City/State/Zipcode | Phone Number | | Organization | | | | + + + + + | [facility] | [address] | [place] [address] | [phone] | + + + + + POC Glucose (04/20/2019 12:44 PM PST) + + + + + + | Component | Value | Ref Range | Performed | Pathologist | | | | | At | Signature | + + + + + + | Glucose, | 273 (H)Comment: Testing | 65 - 99 mg/dL | [facility] | | | POC | performed at [facility];[address] | | LABORATORY | | | | [address];[place], [place] | | | | | | [address] | | | | + + + + + + + + | Specimen | + + | | + + + + + + + | Performing | Address | City/State/Zipcode | Phone Number | | Organization | | | | + + + + + | [facility] | [address] | [place] [address] | [phone] | + + + + + Vancomycin Level (04/20/2019 12:39 PM PST) + + + + + + | Component | Value | Ref Range | Performed | Pathologist | | | | | At | Signature | + + + + + + | Vancomycin | 18.3Comment: Testing | ug/mL | [facility] | | | Random, | performed at [facility];[address] | | LABORATORY | | | Serum | [address];[place] | | | | | | [address] | | | | + + + + + + + + | Specimen | + + | Blood | + + + + + + + | Performing | Address | City/State/Zipcode | Phone Number | | Organization | | | | + + + + + | [facility] | [address] | [place] [address] | [phone] | + + + + + POC [...] | | POC | performed at [facility];[address] | | LABORATORY | | | | [...] | + + + + + | [facility] | [address] | [place] [address] | [phone] | + + + + + POC Glucose (04/20/2019 8:16 AM PST) + + + + + + | Component | Value | Ref Range | Performed | Pathologist | | | | | At | Signature | + + + + + + | Glucose, | 300 (H)Comment: Testing | 65 - 99 mg/dL | [facility] | | | POC | performed at [facility];[address] | | LABORATORY | | | | [address];[place] | | | | | | [address] | | | | + + + + + + + + | Specimen | + + | | + + + + + + + | Performing | Address | City/State/Zipcode | Phone Number | | Organization | | | | + + + + + | [facility] | [address] | [place] [address] | [phone] | + + + + + POC [...] | | POC | performed at [facility];[address] | | LABORATORY | | | | [address];[place], [place] | | | | | | [address] | | | | + + + + + + + + | Specimen | + + | | + + + + + + + | Performing | Address | City/State/Zipcode | Phone Number | | Organization | | | | + + + + + | [facility] | [address] | [place] [address] | [phone] | + + + + + POC [...] | | POC | performed at [facility];[address] | | LABORATORY | | | | [address];[place] | | | | | | [address] | | | | + + + + + + + + | Specimen | + + | | + + + + + + + | Performing | Address | City/State/Zipcode | Phone Number | | Organization | | | | + + + + + | [facility] | [address] | [place] [address] | [phone] | + + + + + POC Glucose (04/19/2019 12:44 PM PST) + + + + + + | Component | Value | Ref Range | Performed | Pathologist | | | | | At | Signature | + + + + + + | Glucose, | 209 (H)Comment: Testing | 65 - 99 mg/dL | [facility] | | | POC | performed at [facility];[address] | | LABORATORY | | | | [address];[place], [place] | | | | | | [address] | | | | + + + + + + + + | Specimen | + + | | + + + + + + + | Performing | Address | City/State/Zipcode | Phone Number | | Organization | | | | + + + + + | [facility] | [address] | [place] [address] | [phone] | + + + + + POC [...] | | POC | performed at [facility];[address] | | LABORATORY | | | | [address];[place], [place] | | | | | | [address] | | | | + + + + + + + + | Specimen | + + | | + + + + + + + | Performing | Address | City/State/Zipcode | Phone Number | | Organization | | | | + + + + + | [facility] | [address] | [place] [address] | [phone] | + + + + + Basic [...] | >60Comment: GFR <60: | >60 | [facility] | | | GFR | [...] | | | | | | [facility]D [facility] traceable | | | | | | equation.Testing | | | | | | performed at [facility], [address] | | | | | | [facility], | | | | | | [place] [address] | | | | + + + + + + + + | Specimen | + + | Blood | + + + + + + + | Performing | Address | City/State/Zipcode | Phone Number | | Organization | | | | + + + + + | [facility] | [address] | [place] [address] | [phone] | + + + + + CBC [...] | | | | | performed at [facility], [address] | | | | | | [facility], | | | | | | [place] [address] | | | | | |MICRO | | | | | |NORMAL PLT MORPH | | | | | |Testing performed at [facility], [address] [facility], [place] [address] | | | | | | | | | | + + +---- + + + + + | Specimen | + + | Blood | + + + + + + + | Performing | Address | City/State/Zipcode | Phone Number | | Organization | | | | + + + + + | [facility] | [address] | [place] [address] | [phone] | + + + + + POC [...] | | POC | performed at [facility];[address] | | LABORATORY | | | | [address];[place] | | | | | | [address] | | | | + + + + + + + + | Specimen | + + | | + + + + + + + | Performing | Address | City/State/Zipcode | Phone Number | | Organization | | | | + + + + + | [facility] | [address] | [place] [address] | [phone] | + + + + + POC Glucose (04/18/2019 9:02 PM PST) + + + + + + | Component | Value | Ref Range | Performed | Pathologist | | | | | At | Signature | + + + + + + | Glucose, | 295 (H)Comment: Testing | 65 - 99 mg/dL | [facility] | | | POC | performed at [facility];[address] | | LABORATORY | | | | [address];[place] | | | | | | [address] | | | | + + + + + + + + | Specimen | + + | | + + + + + + + | Performing | Address | City/State/Zipcode | Phone Number | | Organization | | | | + + + + + | [facility] | [address] | [place] [address] | [phone] | + + + + + POC Glucose (04/18/2019 8:01 PM PST) + + + + + + | Component | Value | Ref Range | Performed | Pathologist | | | | | At | Signature | + + + + + + | Glucose, | 245 (H)Comment: Testing | 65 - 99 mg/dL | [facility] | | | POC | performed at [facility];[address] | | LABORATORY | | | | [address];[place] | | | | | | [address] | | | | + + + + + + + + | Specimen | + + | | + + + + + + + | Performing | Address | City/State/Zipcode | Phone Number | | Organization | | | | + + + + + | [facility] | [address] | [place] [address] | [phone] | + + + + + POC [...] | | POC | performed at [facility];[address] | | LABORATORY | | | | [address];[place], [place] | | | | | | [address] | | | | + + + + + + + + | Specimen | + + | | + + + + + + + | Performing | Address | City/State/Zipcode | Phone Number | | Organization | | | | + + + + + | [facility] | [address] | [place] [address] | [phone] | + + + + + POC [...] | | POC | performed at [facility];[address] | | LABORATORY | | | | [address];[place] | | | | | | [address] | | | | + + + + + + + + | Specimen | + + | | + + + + + + + | Performing | Address | City/State/Zipcode | Phone Number | | Organization | | | | + + + + + | [facility] | [address] | [place] [address] | [phone] | + + + + + NM [...] | | POC | performed at [facility];[address] | | LABORATORY | | | | [address];[place], [place] | | | | | | [address] | | | | + + + + + + + + | Specimen | + + | | + + + + + + + | Performing | Address | City/State/Zipcode | Phone Number | | Organization | | | | + + + + + | [facility] | [address] | [place] [address] | [phone] | + + + + + Basic [...] 8.0 (L) | 8.5 - 10.5 | [facility] | | | | | mg/dL | LAB[facility]ATORY | | + + + + + + | Estimated | >60Comment: GFR <60: | >60 | [facility] | | | GFR | [...] | | | | performed at [facility] | | | | | | [facility];[place], [place] | | | | | | [address] | | | | + + + + + + + + | Specimen | + + | Blood | + + + + + + + | Performing | Address | City/State/Zipcode | Phone Number | | Organization | | | | + + + + + | [facility] | [address] | [place] [address] | [phone] | + + + + + CBC [...] | | Estimate | performed at [facility];[address] | | LABORATORY | | | | [address];[place] | | | | | | [address] | | | | + + + + + + + + | Specimen | + + | Blood | + + + + + + + | Performing | Address | City/State/Zipcode | Phone Number | | Organization | | | | + + + + + | [facility] | [address] | [place] [address] | [phone] | + + + + + POC [...] | | POC | performed at [facility];[address] | | LABORATORY | | | | [address];[place], [place] | | | | | | [address] | | | | + + + + + + + + | Specimen | + + | | + + + + + + + | Performing | Address | City/State/Zipcode | Phone Number | | Organization | | | | + + + + + | [facility] | [address] | [place] [address] | [phone] | + + + + + POC [...] | | POC | performed at [facility];[address] | | LABORATORY | | | | [address];[place] | | | | | | [address] | | | | + + + + + + + + | Specimen | + + | | + + + + + + + | Performing | Address | City/State/Zipcode | Phone Number | | Organization | | | | + + + + + | [facility] | [address] | [place] [address] | [phone] | + + + + + Vancomycin, [...] | | | | performed at [facility] | | | | | | [facility];[place], [place] | | | | | | [address] | | | | + + + + + + + + | Specimen | + + | Blood | + + + + + + + | Performing | Address | City/State/Zipcode | Phone Number | | Organization | | | | + + + + + | [facility] | [address] | [place] [address] | [phone] | + + + + + POC Glucose (04/17/2019 12:05 PM PST) + + + + + + | Component | Value | Ref Range | Performed | Pathologist | | | | | At | Signature | + + + + + + | Glucose, | 200 (H)Comment: Testing | 65 - 99 mg/dL | [facility] | | | POC | performed at [facility];[address] | | LABORATORY | | | | [address];[place] | | | | | | [address] | | | | + + + + + + + + | Specimen | + + | | + + + + + + + | Performing | Address | City/State/Zipcode | Phone Number | | Organization | | | | + + + + + | [facility] | [address] | [place] [address] | [phone] | + + + + + POC [...] | | POC | performed at [facility];[address] | | LABORATORY | | | | [address];[place] | | | | | | [address] | | | | + + + + + + + + | Specimen | + + | | + + + + + + + | Performing | Address | City/State/Zipcode | Phone Number | | Organization | | | | + + + + + | [facility] | [address] | [place] [address] | [phone] | + + + + + POC [...] | | POC | performed at [facility];[address] | | LABORATORY | | | | [address];[place], [place] | | | | | | [address] | | | | + + + + + + + + | Specimen | + + | | + + + + + + + | Performing | Address | City/State/Zipcode | Phone Number | | Organization | | | | + + + + + | [facility] | [address] | [place] [address] | [phone] | + + + + + Basic [...] | >60Comment: GFR <60: | >60 | [facility] | | | GFR | [...] | | | | | performed at [facility], [address] | | | | | | [facility], | | | | | | [place] [address] | | | | + + + + + + + + | Specimen | + + | Blood | + + + + + + + | Performing | Address | City/State/Zipcode | Phone Number | | Organization | | | | + + + + + | [facility] | [address] | [place] [address] | [phone] | + + + + + CBC [...] | | | | | performed at [facility], [facility] [address] | | | | | | [facility], | | | | | | [place] [address] | | | | | |MICRO | | | | | |NORMAL PLT MORPH | | | | | |Testing performed at [facility], [facility] [place] [address] | | | | | | | | | | + + +---- + + + + + | Specimen | + + | Blood | + + + + + + + | Performing | Address | City/State/Zipcode | Phone Number | | Organization | | | | + + + + + | [facility] | [address] | [place] [address] | [phone] | + + + + + POC Glucose (04/16/2019 8:57 PM PST) + + + + + + | Component | Value | Ref Range | Performed | Pathologist | | | | | At | Signature | + + + + + + | Glucose, | 96Comment: Testing | 65 - 99 mg/dL | [facility] | | | POC | performed at [facility];[address] | | LABORATORY | | | | [address];[place] | | | | | | [address] | | | | + + + + + + + + | Specimen | + + | | + + + + + + + | Performing | Address | City/State/Zipcode | Phone Number | | Organization | | | | + + + + + | [facility] | [address] | [place] [address] | [phone] | + + + + + POC [...] | | POC | performed at [facility];[address] | | LABORATORY | | | | [address];[place], [place] | | | | | | [address] | | | | + + + + + + + + | Specimen | + + | | + + + + + + + | Performing | Address | City/State/Zipcode | Phone Number | | Organization | | | | + + + + + | [facility] | [address] | [place] [address] | [phone] | + + + + + POC [...] | | POC | performed at [facility];[address] | | LABORATORY | | | | [address];[place], [place] | | | | | | [address] | | | | + + + + + + + + | Specimen | + + | | + + + + + + + | Performing | Address | City/State/Zipcode | Phone Number | | Organization | | | | + + + + + | [facility] | [address] | [place] [address] | [phone] | + + + + + POC [...] | | POC | performed at [facility];[address] | | LABORATORY | | | | [address];[place], [place] | | | | | | [address] | | | | + + + + + + + + | Specimen | + + | | + + + + + + + | Performing | Address | City/State/Zipcode | Phone Number | | Organization | | | | + + + + + | [facility] | [address] | [place] [address] | [phone] | + + + + + CBC [...] | | | | | performed at [facility], [address] | | | | | | [facility], | | | | | | [place] [address] | | | | | |MICRO | | | | | |NORMAL PLT MORPH | | | | | |Testing performed at [facility], [address] [facility], [place] [address] | | | | | | | | | | + + +---- + + + + + | Specimen | + + | Blood | + + + + + + + | Performing | Address | City/State/Zipcode | Phone Number | | Organization | | | | + + + + + | [facility] | [address] | [place] [address] | [phone] | + + + + + Basic [...] W | | | | | | [facility], | | | | | | [place] [address] | | | | + + + + + + + + | Specimen | + + | Blood | + + + + + + + | Performing | Address | City/State/Zipcode | Phone Number | | Organization | | | | + + + + + | [facility] | [address] | [place] [address] | [phone] | + + + + + POC Glucose (04/15/2019 9:03 PM PST) + + + + + + | Component | Value | Ref Range | Performed | Pathologist | | | | | At | Signature | + + + + + + | Glucose, | 171 (H)Comment: Testing | 65 - 99 mg/dL | [facility] | | | POC | performed at [facility];[address] | | LABORATORY | | | | [address];[place], [place] | | | | | | [address] | | | | + + + + + + + + | Specimen | + + | | + + + + + + + | Performing | Address | City/State/Zipcode | Phone Number | | Organization | | | | + + + + + | [facility] | [address] | [place] [address] | [phone] | + + + + + POC [...] | | POC | performed at [facility];[address] | | LABORATORY | | | | [address];[place], [place] | | | | | | [address] | | | | + + + + + + + + | Specimen | + + | | + + + + + + + | Performing | Address | City/State/Zipcode | Phone Number | | Organization | | | | + + + + + | [facility] | [address] | [place] [address] | [phone] | + + + + + POC Glucose (04/15/2019 1:19 PM PST) + + + + + + | Component | Value | Ref Range | Performed | Pathologist | | | | | At | Signature | + + + + + + | Glucose, | 227 (H)Comment: Testing | 65 - 99 mg/dL | [facility] | | | POC | performed at [facility] [place] | | [facility]AT[facility] | | | | [address];[place], [place] | | | | | | [id number] | | | | + + + + + + + + | Specimen | + + | | + + + + + + + | Performing | Address | City/State/Zipcode | Phone Number | | Organization | | | | + + + + + | [facility] | [address] | [place] [address] | [phone] | + + + + + Type [...] + + + | [facility] | [id number] | | [facility] | | | | | | LABORATORY | | + + + + + + | UNIT # | [id number] | | [facility] | | | | [...] + + + | UNIT # | [id number] | | [facility] | | | | [...] + + + | UNIT # | [id number] | | [facility] | | | | [...] | | RESULT | performed at [facility] | | LABORATORY | | | | [address];[place] | | | | | | [address] | | | | + + + + + + + + | Specimen | + + | Blood | + + + + + + + | Performing | Address | City/State/Zipcode | Phone Number | | Organization | | | | + + + + + | [facility] | [address] | [place] [address] | [phone] | + + + + + Red [...] | ORDER RECEIVED IN BLOOD | | [facility] | | | COMMENT | BANK. | | LABORATORY | | + + + + + + | BLOOD BANK | Testing performed at | | [facility] | | | COMMENT | [facility];[address] | | LABORATORY | | | | [address];[place] [address] | | | | + + + + + + + + | Specimen | + + | | + + + + + + + | Performing | Address | City/State/Zipcode | Phone Number | | Organization | | | | + + + + + | [facility] | [address] | [place] [address] | [phone] | + + + + + POC [...] | | POC | performed at [facility];[address] | | LABORATORY | | | | [address];[place], [place] | | | | | | [address] | | | | + + + + + + + + | Specimen | + + | | + + + + + + + | Performing | Address | City/State/Zipcode | Phone Number | | Organization | | | | + + + + + | [facility] | [address] | [place] [address] | [phone] | + + + + + Vancomycin, [...] | | | | performed at [facility];[address] | | | | | | [address]amillo;[place] | | | | | | [address] | | | | + + + + + + + + | Specimen | + + | Blood | + + + + + + + | Performing | Address | City/State/Zipcode | Phone Number | | Organization | | | | + + + + + | [facility] | [address] | [place] [address] | [phone] | + + + + + CBC [...] | | Estimate | performed at [facility] | | LABORATORY | | | | [address]amillo;[place] | | | | | | [address] | | | | + + + + + + + + | Specimen | + + | Blood | + + + + + + + | Performing | Address | City/State/Zipcode | Phone Number | | Organization | | | | + + + + + | [facility] | [address] | [place] [address] | [phone] | + + + + + Basic [...] 8.1 (L) | 8.5 - 10.5 | [facility] | | | | | mg/dL | LABORATORY | | + + + + + + | Estimated | >60Comment: GFR <60: | >60 | [facility] | | | GFR | [...] | | | | | | MDRD IDWV traceable | | | | | | equation.Testing | | | | | | performed at [facility];[address] | | | | | | [facility];[place], [place] | | | | | | [address] | | | | + + + + + + + + | Specimen | + + | Blood | + + + + + + + | Performing | Address | City/State/Zipcode | Phone Number | | Organization | | | | + + + + + | [facility] | [address] | [place] [address] | [phone] | + + + + + POC [...] | | POC | performed at [facility];[address] | | LABORATORY | | | | [address];[place] | | | | | | [address] | | | | + + + + + + + + | Specimen | + + | | + + + + + + + | Performing | Address | City/State/Zipcode | Phone Number | | Organization | | | | + + + + + | [facility] | [address] [facility] | [place] [address] | [phone] | + + + + + POC [...] | | POC | performed at [facility];[address] | | LABORATORY | | | | [address];[place], [place] | | | | | | [address] | | | | + + + + + + + + | Specimen | + + | | + + + + + + + | Performing | Address | City/State/Zipcode | Phone Number | | Organization | | | | + + + + + | [facility] | [address] | [place] [address] | [phone] | + + + + + POC [...] | | POC | performed at [facility];[address] | | LABORATORY | | | | [address];[place] | | | | | | [address] | | | | + + + + + + + + | Specimen | + + | | + + + + + + + | Performing | Address | City/State/Zipcode | Phone Number | | Organization | | | | + + + + + | [facility] | [address] | [place] [address] | [phone] | + + + + + ECHO [...] + + | Performing | Address | City/State/[facility] [[email or web address] | Phone Number | | Organization | [...] | | POC | performed at [facility];[address] | | LABORATORY | | | | [address];[place] | | | | | | [address] | | | | + + + + + + + + | Specimen | + + | | + + + + + + + | Performing | Address | City/State/Zipcode | Phone Number | | Organization | | | | + + + + + | [facility] | [address] | [place] [address] | [phone] | + + + + + B Type Natriuretic Peptide (04/14/2019 6:29 AM PST) + + + + + + | Component | Value | Ref Range | Performed | Pathologist | | | | | At | Signature | + + + + + + | BNP | 587.58 (H)Comment: | 0 - 100 pg/mL | [facility] | | | | Testing performed at | | LABORATORY | | | | [facility];[address] | | | | | | Blvd;[place] [address] | | | | + + + + + + + + | Specimen | + + | | + + + + + + + | Performing | Address | City/State/Zipcode | Phone Number | | Organization | | | | + + + + + | [facility] | [address] | [place] [address] | [phone] | + + + + + CBC [...] | | Estimate | performed at [facility] | | LABORATORY | | | | [address];[place], [place] | | | | | | [address] | | | | + + + + + + + + | Specimen | + + | | + + + + + + + | Performing | Address | City/State/Zipcode | Phone Number | | Organization | | | | + + + + + | [facility] | [address] | [place] [address] | [phone] | + + + + + Troponin [...] | | | | | | [facility];[address] | | | | | | Bl;[place] [address] | | | | + + + + + + + + | Specimen | + + | Blood | + + + + + + + | Performing | Address | City/State/Zipcode | Phone Number | | Organization | | | | + + + + + | [facility] | [address] | [place] [address] | [phone] | + + + + + Basic [...] | | | | | | MDRD [facility] traceable | | | | | | equation.Testing | | | | | | performed at [facility];[address] | | | | | | [facility];[place], [place] | | | | | | [address] | | | | + + + + + + + + | Specimen | + + | Blood | + + + + + + + | Performing | Address | City/State/Zipcode | Phone Number | | Organization | | | | + + + + + | [facility] | [address] [facility] | [place] [address] | [phone] | + + + + + Vancomycin Level (04/14/2019 4:53 AM PST) + + + + + + | Component | Value | Ref Range | Performed | Pathologist | | | | | At | Signature | + + + + + + | Vancomycin | 20.6Comment: Testing | ug/mL | [facility] | | | Random, | performed at [facility];[address] | | LABORATORY | | | Serum | [facility];[place], [place] | | | | | | [address] | | | | + + + + + + + + | Specimen | + + | Blood | + + + + + + + | Performing | Address | City/State/Zipcode | Phone Number | | Organization | | | | + + + + + | [facility] | [address] | [place] [address] | [phone] | + + + + + POC [...] | | POC | performed at [facility];[address] | | LABORATORY | | | | [address];[place] | | | | | | [address] | | | | + + + + + + + + | Specimen | + + | | + + + + + + + | Performing | Address | City/State/Zipcode | Phone Number | | Organization | | | | + + + + + | [facility] | [address] | [place] [address] | [phone] | + + + + + Troponin I (04/14/2019 1:19 AM PST) + + + + + + | Component | Value | Ref Range | Performed | Pathologist | | | | | At | Signature | + + + + + + | Troponin I | 0.015Comment: 0.04 | 0.00 - 0.04 | [facility] | | | | ng/mL [...] | | | | | | [facility];[address] [facility] | | | | | | Blvd;[place] [address] | | | | + + + + + + + + | Specimen | + + | Blood | + + + + + + + | Performing | Address | City/State/Zipcode | Phone Number | | Organization | | | | + + + + + | [facility] | [address] | [place] [address] | [phone] | + + + + + ECG [...] | | POC | performed at [facility];[address] | | LABORATORY | | | | [address];[place] | | | | | | [address] | | | | + + + + + + + + | Specimen | + + | | + + + + + + + | Performing | Address | City/State/Zipcode | Phone Number | | Organization | | | | + + + + + | [facility] | [address] | [place] [address] | [phone] | + + + + + POC Glucose (04/13/2019 4:19 PM PST) + + + + + + | Component | Value | Ref Range | Performed | Pathologist | | | | | At | Signature | + + + + + + | Glucose, | 109 (H)Comment: Testing | 65 - 99 mg/dL | [facility] | | | POC | performed at [facility];[address] | | LABORATORY | | | | [address];[place] | | | | | | [address] | | | | + + + + + + + + | Specimen | + + | | + + + + + + + | Performing | Address | City/State/Zipcode | Phone Number | | Organization | | | | + + + + + | [facility] | [address] | [place] [address] | [phone] | + + + + + XR [...] + + | Performing | Address | City/State/[place] | Phone Number | | Organization | [...] catheterization with right leg [id number]. 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 The patient was placed supine | | [...] a 4 | | | [place] sheath. A Omni flush catheter was then [...] the catheter and the 4 [place] sheath was | | | removed. A 7 [place] destination sheath was then inserted over the [...] | | POC | performed at [facility];[address] | | LABORATORY | | | | [address];[place] | | | | | | [address] | | | | + + + + + + + + | Specimen | + + | | + + + + + + + | Performing | Address | City/State/Zipcode | Phone Number | | Organization | | | | + + + + + | [facility] | [address] | [place] [address] | [phone] | + + + + + POC Glucose (04/13/2019 7:59 AM PST) + + + + + + | Component | Value | Ref Range | Performed | Pathologist | | | | | At | Signature | + + + + + + | Glucose, | 124 (H)Comment: Testing | 65 - 99 mg/dL | [facility] | | | POC | performed at [facility];[address] | | LABORATORY | | | | [address];[place] | | | | | | [address] | | | | + + + + + + + + | Specimen | + + | | + + + + + + + | Performing | Address | City/State/Zipcode | Phone Number | | Organization | | | | + + + + + | [facility] | [address] | [place] [address] | [phone] | + + + + + Basic [...] | | | | | performed at [facility], [address] | | | | | | [address], | | | | | | [place] [address] | | | | + + + + + + + + | Specimen | + + | Blood | + + + + + + + | Performing | Address | City/State/Zipcode | Phone Number | | Organization | | | | + + + + + | [facility] | [address] | [place] [address] | [phone] | + + + + + CBC [...] | | | | | performed at [facility], [facility] [address] | | | | | | [facility], | | | | | | [place] [address] | | | | | |MICRO | | | | | |NORMAL PLT MORPH | | | | | |Testing performed at [facility], [facility] [place] [address] | | | | | | | | | | + + +---- + + + + + | Specimen | + + | Blood | + + + + + + + | Performing | Address | City/State/Zipcode | Phone Number | | Organization | | | | + + + + + | [facility] | [address] | [place] [address] | [phone] | + + + + + POC Glucose (04/13/2019 3:30 AM PST) + + + + + + | Component | Value | Ref Range | Performed | Pathologist | | | | | At | Signature | + + + + + + | Glucose, | 147 (H)Comment: Testing | 65 - 99 mg/dL | [facility] | | | POC | performed at [facility];[address] | | LABORATORY | | | | [address];[place], [place] | | | | | | [address] | | | | + + + + + + + + | Specimen | + + | | + + + + + + + | Performing | Address | City/State/Zipcode | Phone Number | | Organization | | | | + + + + + | [facility] | [address] | [place] [address] | [phone] | + + + + + POC [...] | | POC | performed at [facility];[address] | | LABORATORY | | | | [address];[place], [place] | | | | | | [address] | | | | + + + + + + + + | Specimen | + + | | + + + + + + + | Performing | Address | City/State/Zipcode | Phone Number | | Organization | | | | + + + + + | [facility] | [address] | [place] [address] | [phone] | + + + + + POC Glucose (04/12/2019 4:28 PM PST) + + + + + + | Component | Value | Ref Range | Performed | Pathologist | | | | | At | Signature | + + + + + + | Glucose, | 211 (H)Comment: Testing | 65 - 99 mg/dL | [facility] | | | POC | performed at [facility];[address] | | LABORATORY | | | | [address];[place] | | | | | | [address] | | | | + + + + + + + + | Specimen | + + | | + + + + + + + | Performing | Address | City/State/Zipcode | Phone Number | | Organization | | | | + + + + + | [facility] | [address] | [place] [address] | [phone] | + + + + + POC Glucose (04/12/2019 11:53 AM PST) + + + + + + | Component | Value | Ref Range | Performed | Pathologist | | | | | At | Signature | + + + + + + | Glucose, | 162 (H)Comment: Testing | 65 - 99 mg/dL | [facility] | | | POC | performed at [facility];[address] | | LABORATORY | | | | [address];[place], [place] | | | | | | [address] | | | | + + + + + + + + | Specimen | + + | | + + + + + + + | Performing | Address | City/State/Zipcode | Phone Number | | Organization | | | | + + + + + | [facility] | [address] | [place] [address] | [phone] | + + + + + POC [...] | | POC | performed at [facility];[address] | | LABORATORY | | | | [address];[place], [place] | | | | | | [address] | | | | + + + + + + + + | Specimen | + + | | + + + + + + + | Performing | Address | City/State/Zipcode | Phone Number | | Organization | | | | + + + + + | [facility] | [address] | [place] [address] | [phone] | + + + + + Basic [...] | >60Comment: GFR <60: | >60 | [facility] | | | GFR | [...] | | | | | | MDRD IDWV traceable | | | | | | equation.Testing | | | | | | performed at [facility], [address] | | | | | | [facility], | | | | | | [place] [address] | | | | + + + + + + + + | Specimen | + + | Blood | + + + + + + + | Performing | Address | City/State/Zipcode | Phone Number | | Organization | | | | + + + + + | [facility] | [address] | [place] [address] | [phone] | + + + + + CBC [...] | | | | | performed at [facility], [facility] [address] | | | | | | [facility], | | | | | | [place] [address] | | | | | |MICRO | | | | | |NORMAL PLT MORPH | | | | | |Testing performed at [facility], [facility] [place] [address] | | | | | | | | | | + + +---- + + + + + | Specimen | + + | Blood | + + + + + + + | Performing | Address | City/State/Zipcode | Phone Number | | Organization | | | | + + + + + | [facility] | [address] | [place] [address] | [phone] | + + + + + POC Glucose (04/11/2019 9:20 PM PST) + + + + + + | Component | Value | Ref Range | Performed | Pathologist | | | | | At | Signature | + + + + + + | Glucose, | 199 (H)Comment: Testing | 65 - 99 mg/dL | [facility] | | | POC | performed at [facility];[address] | | LABORATORY | | | | [address];[place] | | | | | | [address] | | | | + + + + + + + + | Specimen | + + | | + + + + + + + | Performing | Address | City/State/Zipcode | Phone Number | | Organization | | | | + + + + + | [facility] | [address] | [place] [address] | [phone] | + + + + + POC [...] | | POC | performed at [facility];[address] | | LABORATORY | | | | [address];[place] | | | | | | [address] | | | | + + + + + + + + | Specimen | + + | | + + + + + + + | Performing | Address | City/State/Zipcode | Phone Number | | Organization | | | | + + + + + | [facility] | [address] | [place] [address] | [phone] | + + + + + POC [...] | | POC | performed at [facility];[address] | | LABORATORY | | | | [address];[place] | | | | | | [address] | | | | + + + + + + + + | Specimen | + + | | + + + + + + + | Performing | Address | City/State/Zipcode | Phone Number | | Organization | | | | + + + + + | [facility] | [address] | [place] [address] | [phone] | + + + + + IR [...] x 150 mm | | | angioplasty [id number]. Left SFA stenting using 7 x 120 mm | | | self-expanding stent SURGEON: Simba Cheng MD AUTOMOTIVE TEACHER: None ANESTHESIA: | | | Moderate [...] | | identified and brought to the Flash Designer. The patient was placed supine | | [...] a 4 | | | [place] sheath. A Omni flush catheter was then [...] the catheter and the 4 [place] sheath was | | | removed. A 7 [place] destination sheath was then inserted over the [...] using a | | | Glidewire and Glen catheter. A 0.009 wire was then passed [...] crossed using a | | |Glidewire and Glen catheter. A 0.009 wire was then passed [...] | | POC | performed at [facility];[address] | | LABORATORY | | | | [address];[place], [place] | | | | | | [address] | | | | + + + + + + + + | Specimen | + + | | + + + + + + + | Performing | Address | City/State/Zipcode | Phone Number | | Organization | | | | + + + + + | [facility] | [address] | [place] [address] | [phone] | + + + + + B Type Natriuretic Peptide (04/11/2019 5:48 AM PST) + + + + + + | Component | Value | Ref Range | Performed | Pathologist | | | | | At | Signature | + + + + + + | BNP | 220.45 (H)Comment: | 0 - 100 pg/mL | [facility] | | | | Testing performed at | | LABORATORY | | | | [facility];[address] | | [address];[place] [address] | | | | + + + + + + + + | Specimen | + + | Blood | + + + + + + + | Performing | Address | City/State/Zipcode | Phone Number | | Organization | | | | + + + + + | [facility] | [address] | [place] [address] | [phone] | + + + + + Basic [...] | | | | | performed at [facility], [address] | | | | | | [address], | | | | | | [place] [address] | | | | + + + + + + + + | Specimen | + + | Blood | + + + + + + + | Performing | Address | City/State/Zipcode | Phone Number | | Organization | | | | + + + + + | [facility] | [address] | [place] [address] | [phone] | + + + + + CBC [...] | | | | | | at [facility], [address] | | | | | | [facility], | | | | | | [place] [address] | | | | | |Testing performed at [facility], [address] [facility], [place] [address] | | | | | | | | | | + + +---- + + + + + | Specimen | + + | Blood | + + + + + + + | Performing | Address | City/State/Zipcode | Phone Number | | Organization | | | | + + + + + | [facility] | [address] | [place] [address] | [phone] | + + + + + POC Glucose (04/10/2019 9:22 PM PST) + + + + + + | Component | Value | Ref Range | Performed | Pathologist | | | | | At | Signature | + + + + + + | Glucose, | 127 (H)Comment: Testing | 65 - 99 mg/dL | [facility] | | | POC | performed at [facility];[address] | | LABORATORY | | | | [address];[place] | | | | | | [address] | | | | + + + + + + + + | Specimen | + + | | + + + + + + + | Performing | Address | City/State/Zipcode | Phone Number | | Organization | | | | + + + + + | [facility] | [address] | [place] [address] | [phone] | + + + + + POC Glucose (04/10/2019 2:33 PM PST) + + + + + + | Component | Value | Ref Range | Performed | Pathologist | | | | | At | Signature | + + + + + + | Glucose, | 176 (H)Comment: Testing | 65 - 99 mg/dL | [facility] | | | POC | performed at [facility];[address] | | LABORATORY | | | | [address];[place] | | | | | | [address] | | | | + + + + + + + + | Specimen | + + | | + + + + + + + | Performing | Address | City/State/Zipcode | Phone Number | | Organization | | | | + + + + + | [facility] | [address] | [place] [address] | [phone] | + + + + + [place] [...] | | POC | performed at [facility];[address] | | LABORATORY | | | | [address];[place] | | | | | | [address] | | | | + + + + + + + + | Specimen | + + | | + + + + + + + | Performing | Address | City/State/Zipcode | Phone Number | | Organization | | | | + + + + + | [facility] | [address] | [place] [address] | [phone] | + + + + + CBC [...] | | | | | [place] [address] | | | | + + + + + + + + | Specimen | + + | Blood | + + + + + + + | Performing | Address | City/State/Zipcode | Phone Number | | Organization | | | | + + + + + | [facility] | [address] | [place] [address] | [phone] | + + + + + POC Glucose (04/09/2019 9:57 PM PST) + + + + + + | Component | Value | Ref Range | Performed | Pathologist | | | | | At | Signature | + + + + + + | Glucose, | 151 (H)Comment: Testing | 65 - 99 mg/dL | [facility] | | | POC | performed at [facility];[address] | | LABORATORY | | | | [address];[place] | | | | | | [address] | | | | + + + + + + + + | Specimen | + + | | + + + + + + + | Performing | Address | City/State/Zipcode | Phone Number | | Organization | | | | + + + + + | [facility] | [address] | [place] [address] | [phone] | + + + + + POC [...] | | POC | [place] [facility] [place] | | [place]ATORY | | | | [address];[place], [place] | | | | | | [address] | | | | + + + + + + + + | Specimen | + + | | + + + + + + + | Performing | Address | City/State/Zipcode | Phone Number | | Organization | | | | + + + + + | [facility] | [address] | [place] [address] | [phone] | + + + + + POC [...] | | POC | performed at [facility] [place] | | LABORATORY | | | | [address];[place] | | | | | | [address] | | | | + + + + + + + + | Specimen | + + | | + + + + + + + | Performing | Address | City/State/Zipcode | Phone Number | | Organization | | | | + + + + + | [facility] | [address] | [place] [address] | [phone] | + + + + + XR Chest AP Portable (04/09/2019 9:02 AM PST) + + | Specimen | + + | | + + + + + | Impressions | Performed At | + + + | Hypoventilatory exam, it would be difficult to exclude an element of | [facility] | | congestive failure. Signed by: Madison Solis, [facility] | | | Sign Date/Time: [...] | | | Urine | performed at [facility], [address] | | LABORATORY | | | | [address], | | | | | | [place] [address] | | | | + + + + + + + + | Specimen | + + | | + + + + + + + | Performing | Address | City/State/Zipcode | Phone Number | | Organization | | | | + + + + + | [facility] | [address] | [place] [address] | [phone] | + + + + + Urinalysis, [...] - 1.030 | [facility] | | | [place], | | | LABORATORY | | | [...] | + + + + + | [facility] | [address] | [place] [address] | [phone] | + + + + + Sedimentation Rate (04/09/2019 6:16 AM PST) + + + + + + | Component | Value | Ref Range | Performed | Pathologist | | | | | At | Signature | + + + + + + | ESR | 91 (H)Comment: Testing | 0 - 20 mm/Hr | [facility] | | | | performed at [facility], [address] | | LABORATORY | | | | [address], | | | | | | [place] [address] | | | | + + + + + + + + | Specimen | + + | Blood | + + + + + + + | Performing | Address | City/State/Zipcode | Phone Number | | Organization | | | | + + + + + | [facility] | [address] | [place] [address] | [phone] | + + + + + CBC [...] [facility] | | | | performed at [facility], [address] | | LABORATORY | | | | [address], | | | | | | [place] [address] | | | | + + + + + + + + | Specimen | + + | Blood | + + + + + + + | Performing | Address | City/State/Zipcode | Phone Number | | Organization | | | | + + + + + | [facility] | [address] | [place] [address] | [phone] | + + + + + Comprehensive [...] | | | | | performed at [facility], [address] | | | | | | [facility], | | | | | | [place] [address] | | | | + + + + + + + + | Specimen | + + | Blood | + + + + + + + | Performing | Address | City/State/Zipcode | Phone Number | | Organization | | | | + + + + + | [facility] | [address] | [place] [address] | [phone] | + + + + + POC Glucose (04/08/2019 10:09 PM PST) + + + + + + | Component | Value | Ref Range | Performed | Pathologist | | | | | At | Signature | + + + + + + | Glucose, | 168 (H)Comment: Testing | 65 - 99 mg/dL | [facility] | | | POC | performed at [facility] | | LABORATORY | | | | [address];[place] | | | | | | [address] | | | | + + + + + + + + | Specimen | + + | | + + + + + + + | Performing | Address | City/State/Zipcode | Phone Number | | Organization | | | | + + + + + | [facility] | [address] | [place] [address] | [phone] | + + + + + Fecal Hemoglobin (04/08/2019 7:27 PM PST) + + + + + + | Component | Value | Ref Range | Performed | Pathologist | | | | | At | Signature | + + + + + + | FECAL | NEGATIVEComment: Testing | NEG | [facility] | | | OCCULT BLD | performed at [facility];[address] | | LABORATORY | | | | [address];[place] | | | | | | [address] | | | | + + + + + + + + | Specimen | + + | Stool - Stool | | specimen (specimen) | + + + + + + + | Performing | Address | City/State/Zipcode | Phone Number | | Organization | | | | + + + + + | [facility] | [address] | [place] [address] | [phone] | + + + + + POC Glucose (04/08/2019 6:34 PM PST) + + + + + + | Component | Value | Ref Range | Performed | Pathologist | | | | | At | Signature | + + + + + + | Glucose, | 179 (H)Comment: Testing | 65 - 99 mg/dL | [facility] | | | POC | performed at [facility];[address] | | LABORATORY | | | | [address];[place], [place] | | | | | | [address] | | | | + + + + + + + + | Specimen | + + | | + + + + + + + | Performing | Address | City/State/Zipcode | Phone Number | | Organization | | | | + + + + + | [facility] | [address] | [place] [address] | [phone] | + + + + + XR [...] Testing | 65 - 99 mg/dL | [facility] | | | POC | performed at [facility];[address] | | LABORATORY | | | | [address];[place], [place] | | | | | | [address] | | | | + + + + + + + + | Specimen | + + | | + + + + + + + | Performing | Address | City/State/Zipcode | Phone Number | | Organization | | | | + + + + + | [facility] | [address] | [place] [address] | [phone] | + + + + + XR [...] | | POC | performed at [facility];[address] | | LABORATORY | | | | [address];[place], [place] | | | | | | [address] | | | | + + + + + + + + | Specimen | + + | | + + + + + + + | Performing | Address | City/State/Zipcode | Phone Number | | Organization | | | | + + + + + | [facility] | [address] | [place] [address] | [phone] | + + + + + B Type Natriuretic Peptide (04/08/2019 5:45 AM PST) + + + + + + | Component | Value | Ref Range | Performed | Pathologist | | | | | At | Signature | + + + + + + | BNP | 580.26 (H)Comment: | 0 - 100 pg/mL | [facility] | | | | Testing performed at | | LABORATORY | | | | [facility];[address] | | | | | [address];[place] [address] | | | | + + + + + + + + | Specimen | + + | Blood | + + + + + + + | Performing | Address | City/State/Zipcode | Phone Number | | Organization | | | | + + + + + | [facility] | [address] | [place] [address] | [phone] | + + + + + CBC [...] [facility] | | | | performed at [facility], [address] | | LABORATORY | | | | [address], | | | | | | [place] [address] | | | | + + + + + + + + | Specimen | + + | Blood | + + + + + + + | Performing | Address | City/State/Zipcode | Phone Number | | Organization | | | | + + + + + | [facility] | [address] | [place] [address] | [phone] | + + + + + Comprehensive [...] | | | | | performed at [facility], [address] | | | | | | [address], | | | | | | [place] [address] | | | | + + + + + + + + | Specimen | + + | Blood | + + + + + + + | Performing | Address | City/State/Zipcode | Phone Number | | Organization | | | | + + + + + | [facility] | [address] [facility] | [place] [address] | [phone] | + + + + + POC [...] | | POC | performed at [facility];[address] | | LABORATORY | | | | [address];[place], [place] | | | | | | [address] | | | | + + + + + + + + | Specimen | + + | | + + + + + + + | Performing | Address | City/State/Zipcode | Phone Number | | Organization | | | | + + + + + | [facility] | [address] | [place] [address] | [phone] | + + + + + POC [...] | | POC | performed at [facility];[address] | | LABORATORY | | | | [address];[place] | | | | | | [address] | | | | + + + + + + + + | Specimen | + + | | + + + + + + + | Performing | Address | City/State/Zipcode | Phone Number | | Organization | | | | + + + + + | [facility] | [address] | [place] [address] | [phone] | + + + + + POC Glucose (04/07/2019 12:40 PM PST) + + + + + + | Component | Value | Ref Range | Performed | Pathologist | | | | | At | Signature | + + + + + + | Glucose, | 252 (H)Comment: Testing | 65 - 99 mg/dL | [facility] | | | POC | performed at [facility];[address] | | LABORATORY | | | | [address];[place], [place] | | | | | | [address] | | | | + + + + + + + + | Specimen | + + | | + + + + + + + | Performing | Address | City/State/Zipcode | Phone Number | | Organization | | | | + + + + + | [facility] | [address] | [place] [address] | [phone] | + + + + + XR [...] Testing | 65 - 99 mg/dL | [facility] | | | POC | performed at [facility];[address] | | LABORATORY | | | | [address];[place] | | | | | | [address] | | | | + + + + + + + + | Specimen | + + | | + + + + + + + | Performing | Address | City/State/Zipcode | Phone Number | | Organization | | | | + + + + + | [facility] | [address] | [place] [address] | [phone] | + + + + + Magnesium (04/07/2019 5:02 AM PST) + + + + + + | Component | Value | Ref Range | Performed | Pathologist | | | | | At | Signature | + + + + + + | Magnesium | 2.1Comment: Testing | 1.7 - 2.4 mg/dL | [facility] | | | | performed at [facility], [address] | | LABORATORY | | | | [address], | | | | | | [place] [address] | | | | + + + + + + + + | Specimen | + + | Blood | + + + + + + + | Performing | Address | City/State/Zipcode | Phone Number | | Organization | | | | + + + + + | [facility] | [address] | [place] [address] | [phone] | + + + + + CBC [...] | | | | performed at [facility];[address] | | LABORATORY | | | | [address];[place] | | | | | | [address] | | | | + + + + + + + + | Specimen | + + | Blood | + + + + + + + | Performing | Address | City/State/Zipcode | Phone Number | | Organization | | | | + + + + + | [facility] | [address] | [place] [address] | [phone] | + + + + + Comprehensive [...] W | | | | | | [facility], | | | | | | [place] [address] | | | | + + + + + + + + | Specimen | + + | Blood | + + + + + + + | Performing | Address | City/State/Zipcode | Phone Number | | Organization | | | | + + + + + | [facility] | [address] | [place] [address] | [phone] | + + + + + Iron, Total (04/07/2019 5:02 AM PST) + + + + + + | Component | Value | Ref Range | Performed | Pathologist | | | | | At | Signature | + + + + + + | Iron | 23 (L)Comment: Testing | 45 - 190 ug/dL | [facility] | | | | performed at [facility], [address] | | LABORATORY | | | | [address], | | | | | | [place] [address] | | | | + + + + + + + + | Specimen | + + | Blood | + + + + + + + | Performing | Address | City/State/Zipcode | Phone Number | | Organization | | | | + + + + + | [facility] | [address] | [place] [address] | [phone] | + + + + + POC [...] | | POC | performed at [facility];[address] | | LABORATORY | | | | [address];[place], [place] | | | | | | [address] | | | | + + + + + + + + | Specimen | + + | | + + + + + + + | Performing | Address | City/State/Zipcode | Phone Number | | Organization | | | | + + + + + | [facility] | [address] | [place] [address] | [phone] | + + + + + POC Glucose (04/06/2019 4:29 PM PST) + + + + + + | Component | Value | Ref Range | Performed | Pathologist | | | | | At | Signature | + + + + + + | Glucose, | 173 (H)Comment: Testing | 65 - 99 mg/dL | [facility] | | | POC | performed at [facility];[address] | | LABORATORY | | | | [address];[place] | | | | | | [address] | | | | + + + + + + + + | Specimen | + + | | + + + + + + + | Performing | Address | City/State/Zipcode | Phone Number | | Organization | | | | + + + + + | [facility] | [address] | [place] [address] | [phone] | + + + + + Culture, [...] | | LABORATORY | | | | Blvd;[place] [address] | | | | + + + [...] RESULT | Testing performed at | | [facility] | | | | [facility], [address] | | LABORATORY | | | | [place], [place] | | | | | | [address]Flaglbd: Testing | | | | | | performed at [facility], [address] | | | | | | [address] [place], [place] | | | | | | [address] | | | | + + + + + + + + | Specimen | + + | Body Fluid - Entire | | heel (body | | structure) | + + + + + + + | Performing | Address | City/State/Zipcode | Phone Number | | Organization | | | | + + + + + | [facility] | [address] | [place] [address] | [phone] | + + + + + Culture, [...] LABORATORY | | | | Blvd;[place] [address] | | | | + + + [...] Comment: Testing | | | performed at [facility], | | | [address], | | | [place] [address] | +---+ + + + + + + | Performing | Address | City/State/Zipcode | Phone Number | | Organization | | | | + + + + + | [facility] | [address] | [place] [address] | [phone] | + + + + + Ferritin (04/06/2019 2:30 PM PST) + + + + + + | Component | Value | Ref Range | Performed | Pathologist | | | | | At | Signature | + + + + + + | Ferritin | 62Comment: Testing | 11 - 450 ng/mL | [facility] | | | | performed at [facility], [address] | | LABORATORY | | | | [address], | | | | | | [place] [address] | | | | + + + + + + + + | Specimen | + + | Blood | + + + + + + + | Performing | Address | City/State/Zipcode | Phone Number | | Organization | | | | + + + + + | [facility] | [address] | [place] [address] | [phone] | + + + + + Vitamin [...] | 12.3Comment: Testing | >5.4 ng/mL | [facility] | | | | performed at [facility], [address] | | LABORATORY | | | | [address], | | | | | | [place] [address] | | | | + + + + + + + + | Specimen | + + | Blood | + + + + + + + | Performing | Address | City/State/Zipcode | Phone Number | | Organization | | | | + + + + + | [facility] | [address] | [place] [address] | [phone] | + + + + + Troponin I (04/06/2019 2:30 PM PST) + + + + + + | Component | Value | Ref Range | Performed | Pathologist | | | | | At | Signature | + + + + + + | Troponin I | 0.161 (H)Comment: 0.04 | 0.00 - 0.04 | [facility] | | | | ng/mL [...] | | | | | | [facility];[address] | | | | | | [facility];[place] [address] | | | | + + + + + + + + | Specimen | + + | Blood | + + + + + + + | Performing | Address | City/State/Zipcode | Phone Number | | Organization | | | | + + + + + | [facility] | [address] | [place] [address] | [phone] | + + + + + POC Glucose (04/06/2019 11:28 AM PST) + + + + + + | Component | Value | Ref Range | Performed | Pathologist | | | | | At | Signature | + + + + + + | Glucose, | 175 (H)Comment: Testing | 65 - 99 mg/dL | [facility] | | | POC | performed at [facility];[address] | | LABORATORY | | | | [address];[place], [place] | | | | | | [address] | | | | + + + + + + + + | Specimen | + + | | + + + + + + + | Performing | Address | City/State/Zipcode | Phone Number | | Organization | | | | + + + + + | [facility] | [address] | [place] [address] | [phone] | + + + + + VAS [...] | | POC | performed at [facility];[address] | | LABORATORY | | | | [address];[place], [place] | | | | | | [address] | | | | + + + + + + + + | Specimen | + + | | + + + + + + + | Performing | Address | City/State/Zipcode | Phone Number | | Organization | | | | + + + + + | [facility] | [address] | [place] [address] | [phone] | + + + + + Troponin [...] | | | | | | [facility];[address] | | | | | | [facility];[place] [address] | | | | + + + + + + + + | Specimen | + + | Blood | + + + + + + + | Performing | Address | City/State/Zipcode | Phone Number | | Organization | | | | + + + + + | [facility] | [address] | [place] [address] | [phone] | + + + + + XR [...] LABORATORY | | | | [address];[place] [address] | | | | + + + + + + | RESULT | NO GROWTH 6 DAYS | | [facility] | | | | | | LABORATORY | | + + + + + + | RESULT | Testing performed at | | [facility] | | | | [facility], [address] | | LABORATORY | | | | [place] | | | | | | [address]Cljhfai: Testing | | | | | | performed at [facility], [address] | | | | | | [address], [place], [place] | | | | | | [address] | | | | + + + + + + + + | Specimen | + + | Blood - Peripheral | | blood specimen | | (specimen) | + + + + + + + | Performing | Address | City/State/Zipcode | Phone Number | | Organization | | | | + + + + + | [facility] | [address] | [place] [address] | [phone] | + + + + + Culture, [...] LABORATORY | | | | Blvd;[place] [address] | | | | + + + + + + | RESULT | NO GROWTH 6 DAYS | | [facility] | | | | | | LABORATORY | | + + + + + + | RESULT | Testing performed at | | [facility] | | | | [facility], [address] | | LABORATORY | | | | [place], [place] | | | | | | [address]Srqboem: Testing | | | | | | performed at [facility], [address] | | | | | | [address], [place], [place] | | | | | | [address] | | | | + + + + + + + + | Specimen | + + | Blood - Peripheral | | blood specimen | | (specimen) | + + + + + + + | Performing | Address | City/State/Zipcode | Phone Number | | Organization | | | | + + + + + | [facility] | [address] | [place] [address] | [phone] | + + + + + B [...] | LABORATORY | | | | [facility];[address] [facility] | | | | | | Blvd;[place] [address] | | | | + + + + + + + + | Specimen | + + | | + + + + + + + | Performing | Address | City/State/Zipcode | Phone Number | | Organization | | | | + + + + + | [facility] | [address] | [place] [address] | [phone] | + + + + + Lipid [...] | | | Calculated | performed at [facility], [address] | | LABORATORY | | | | [address], | | | | | | [place] [address] | | | | + + + + + + + + | Specimen | + + | Blood | + + + + + + + | Performing | Address | City/State/Zipcode | Phone Number | | Organization | | | | + + + + + | [facility] | [address] | [place] [address] | [phone] | + + + + + Hemoglobin A1C (04/06/2019 2:48 AM PST) + + + + + + | Component | Value | Ref Range | Performed | Pathologist | | | | | At | Signature | + + + + + + | Hemoglobin | 7.8 (H)Comment: HbA1c | 4.0 - 6.0 % | [facility] | | | A1c | [...] | 177 (H)Comment: | <154 mg/dL | [facility] | | | Average | Estimated Average | | LABORATORY | | | Glucose | Glucose calculated from | | | | | | hemoglobin A1c by use of | | | | | | the ADArecommended | | | | | | formula.Testing | | | | | | performed at [facility], [address] | | | | | | [facility], | | | | | | [place] [address] | | | | + + + + + + + + | Specimen | + + | Blood | + + + + + + + | Performing | Address | City/State/Zipcode | Phone Number | | Organization | | | | + + + + + | [facility] | [address] | [place] [address] | [phone] | + + + + + Magnesium (04/06/2019 2:48 AM PST) + + + + + + | Component | Value | Ref Range | Performed | Pathologist | | | | | At | Signature | + + + + + + | Magnesium | 1.4 (L)Comment: Testing | 1.7 - 2.4 mg/dL | [facility] | | | | performed at [facility], [address] | | LABORATORY | | | | [address], | | | | | | [place] [address] | | | | + + + + + + + + | Specimen | + + | Blood | + + + + + + + | Performing | Address | City/State/Zipcode | Phone Number | | Organization | | | | + + + + + | [facility] | [address] | [place] [address] | [phone] | + + + + + Comprehensive [...] | | | | | performed at [facility], [address] | | | | | | [facility], | | | | | | [place] [address] | | | | + + + + + + + + | Specimen | + + | Blood | + + + + + + + | Performing | Address | City/State/Zipcode | Phone Number | | Organization | | | | + + + + + | [facility] | [address] | [place] [address] | [phone] | + + + + + CBC [...] | | | | | at [facility];[address] | | | | | | [address];[place] [address] | | | | | |NORMAL [address]T MORPH | | | | | |Testing performed at [facility];[address];[place] [address] | | | | | | | | | | + + + + + + + + | Specimen | + + | Blood | + + + + + + + | Performing | Address | City/State/Zipcode | Phone Number | | Organization | | | | + + + + + | [facility] | [address] | [place] [address] | [phone] | + + + + + Protime INR (04/06/2019 2:48 AM PST) + + + + + + | Component | Value | Ref Range | Performed | Pathologist | | | | | At | Signature | + + + + + + | INR | 1.2Comment: REFERENCE | | [facility] | | | | RANGE:0.9 [...] | | | | performed at [facility];[address] | | | | | | [address];[place] | | | | | | [address] | | | | + + + + + + + + | Specimen | + + | Blood | + + + + + + + | Performing | Address | City/State/Zipcode | Phone Number | | Organization | | | | + + + + + | [facility] | [address] | [place] [address] | [phone] | + + + + + PTT (04/06/2019 2:48 AM PST) + + + + + + | Component | Value | Ref Range | Performed | Pathologist | | | | | At | Signature | + + + + + + | PTT | 34 (H)Comment: Testing | 23 - 32 seconds | [facility] | | | | performed at [facility];[address] | | LABORATORY | | | | [address];[place] | | | | | | [address] | | | | + + + + + + + + | Specimen | + + | Blood | + + + + + + + | Performing | Address | City/State/Zipcode | Phone Number | | Organization | | | | + + + + + | [facility] | [address] | [place] [address] | [phone] | + + + + + Troponin I (04/06/2019 2:48 AM PST) + + + + + + | Component | Value | Ref Range | Performed | Pathologist | | | | | At | Signature | + + + + + + | Troponin I | 0.198 (H)Comment: 0.04 | 0.00 - 0.04 | [facility] | | | | ng/mL [...] | | | | | | [facility];[address] | | | | | | [address];[place] [address] | | | | + + + + + + + + | Specimen | + + | Blood | + + + + + + + | Performing | Address | City/State/Zipcode | Phone Number | | Organization | | | | + + + + + | [facility] | [address] | [place] [address] | [phone] | + + + + + documented [...] | | | | | dose on [facility] 04/12/19 at 0900 | | AM [...] | | | | | | longer, rrnnrg-uxy-kgnzp use of | | | | | [...] | | | | | | | 1594-7132 Use NIGHT DOSE for | | | | | | | doses scheduled: HS, 3AM, | | | | | | | Nighttime 8776-1955 If the BG is | | | [...] PRN, Sore Throat, | | | Starting [facility] 04/12/19 at 2120 | | + [...] | | | | | discussed with [facility]. Thank you. | | | | [...]
--- OUTSIDE RECORDS SUMMARY | ~2019-08-23 | XMS | Encounter Summary ---
Demographics + + + | Address | [address] | | | [place] [address] | + + + | Home Phone [...] + | Jessica Shepard | ECON | [address] | | | | | [place] | | | | | [address] | | + + + + + | Bel Solis | ECON | Unknown | | + + + + + Care Team Providers + +------+ + | Care Chief Estimator Name | Role | Phone | + [...] (HCC) | | | | [address] | [facility] | (Primary Dx) | | | | [place] | [place] [address] | | | | | [address] | [phone] | | | | | [phone] | | | +--------+ + + + [...] saline. SBAR report to ELLIOT Ramirez @ [facility] who continues care. Dressing will Need to [...]
--- OUTSIDE RECORDS SUMMARY | ~2019-08-23 | XMS | Encounter Summary ---
Demographics + + + | Address | [address] | | | [place] [address] | + + + | Home Phone [...] + | Jessica Shepard | ECON | [address] | | | | | [place] | | | | | [address] | | + + + + + | Bel Solis | ECON | Unknown | | + + + + + Care Team Providers + +------+ + | Care Secondary Connector Armature Name | Role | Phone | + +------+ + | Dian Lr NP | PCP | | + +------+ + Encounter Details +--------+ + + + + | Date | Type | Department | Care Team | Description | +--------+ + + + + | 10/16/ | Orders Only | [facility] | Provider, | Other acute | | 2019 | | SYSTEM GENERIC OP | MD [address] | osteomyelitis, right | | | | CONVERSION [address] | [address] | ankle and foot | | | | [address] [place], [place] | [place] [address] | ([facility]) | | | | [address] | | | | | | [phone] | | | +--------+ + + + [...]
--- OUTSIDE RECORDS SUMMARY | ~2019-08-23 | XMS | Encounter Summary ---
Demographics + + + | Address | [address] | | | [place] [address] | + + + | Home Phone [...] + | Organization | [facility] | | | and [place] | + + + | Address | Unknown | + + + | Phone | Unavailable | + + + Support + + + + + | Name | Relationship | Address | Phone | + + + + + | Jessica Shepard | ECON | [address] | | | | | [place] | | | | | [address] | | + + + + + | Bel Solis | ECON | Unknown | | + + + + + Care Team Providers + +------+ + | Care Sql Programmer Analyst Name | Role | Phone | + +------+ + PCP | Unavailable | + +------+ + Encounter Details +--------+ + + + + | Date | Type | Department | Care Team | Description | +--------+ + + + + | 02/22/ | Hospital | [facility] [address] | | | | 2000 | Encounter | MED CTR XRAY [address] | | | | | | [place] | | | | | | [place] [address] | | | | | | [phone] | | | +--------+ + + + [...]
--- OUTSIDE RECORDS SUMMARY | ~2019-08-23 | XMS | Encounter Summary ---
Demographics + + + | Address | [address] | | | [place] [address] | + + + | Home Phone [...] + | Jessica Shepard | ECON | [address] | | | | | [place] | | | | | [address] | | + + + + + | Bel Solis | ECON | Unknown | | + + + + + Care Team Providers + +------+ + | Care Supervisor Coal Handling Name | Role | Phone | + [...] + + | 05/22/ | Documentati | [facility] | Nimo Westbrook, | Other (*Labs from | 2019 | on | INFECTIOUS DISEASE | Project Management Analyst | [facility] | | | | [address] | | 05/21/2019 | | | | [place] | | (CBC,CMP,ESR,CRP,VAN | | | | [address] | | CO TROUGH)) | | | | [phone] | | | +--------+ + + + [...] as of this encounter Progress Nimo Harley, Project Management Analyst - 05/23/2019 3:55 PM PST*Labs from [facility] 04/2019 (CBC,CMP,ESR,CRP,VANCO TROUGH) RECEIVED: 05/23/2019 Labs were abstracted into [facility] and sent to scan. Kaye CMA Tdocumented [...] [address] | [place] | [phone] | | [facility] | | [address] | | + + + + + [...] + + + | REFERENCE LAB | [facility] | [place] | [phone] | | [facility] | | [address] | | + + + + + [...] + | REFERENCE LAB | [address] | [place] | [phone] | | [facility] | | [address] | | + + + + + [...] + | REFERENCE LAB | [address] | [place] | [phone] | | [facility] | | [address] | | + + + + + [...] + | REFERENCE LAB | [address] [facility] | [place] | [phone] | | [facility] | | [address] | | + + + + + [...]
--- OUTSIDE RECORDS SUMMARY | ~2019-08-23 | XMS | Encounter Summary ---
Demographics + + + | Address | [address] | | | [place] [address] | + + + | Home Phone [...] + | Jessica Shepard | ECON | [address] | | | | | [place] | | | | | [address] | | + + + + + | Bel Solis | ECON | Unknown | | + + + + + Care Team Providers + +------+ + | Care Postal Carrier Name | Role | Phone | + +------+ + PCP | Unavailable | + +------+ + Encounter Details +--------+ + + + + | Date | Type | Department | Care Team | Description | +--------+ + + + + | 02/22/ | Hospital | [address] [facility] | | | | 2000 | Encounter | MED CTR XRAY [address] | | | | | | [place] | | | | | | [place] [address] | | | | | | [phone] | | | +--------+ + + + [...]
--- OUTSIDE RECORDS SUMMARY | ~2019-08-23 | XMS | Encounter Summary ---
Demographics + + + | Address | [address] | | | [place] [address] | + + + | Home Phone [...] + | Jessica Shepard | ECON | [address] | | | | | [place] | | | | | [address] | | + + + + + | Bel Solis | ECON | Unknown | | + + + + + Care Team Providers + +------+ + | Care [place] Hanger Helper Name | Role | Phone | [...] + + | 07/22/ | Telephone | [facility] | Dylan Gaston, | Other (He is | | 2020 | | INFECTIOUS DISEASE | Hero Malave MD | refusing to come to | | | | [address] | [address] | appointment. He will | | | | [place] | [place] [address] | call us back when | | | | [address] | [phone] | he is ready.) | | | | [phone] | | | +--------+ + + + [...]
--- OUTSIDE RECORDS SUMMARY | ~2019-08-23 | XMS | Encounter Summary ---
Demographics + + + | Address | [address] | | | [place] [address] | + + + | Home Phone | | + + + | Preferred Language | Unknown | + + + | Marital Status | | + + + | Church Affiliation | 1076 | + + + | Race | Unknown | + + + | Ethnic Group | Unknown | + + + Author + + + | Author | [facility] | | | and [place] | + + + | Organization | [facility] | | | and [place] | + + + | Address | Unknown | + + + | Phone | Unavailable | + + + Support + + + + + | Name | Relationship | Address | Phone | + + + + + | Jessica Shepard | ECON | [address] | | | | | [place] | | | | | [address] | | + + + + + | Bel Solis | ECON | Unknown | | + + + + + Care Team Providers + +------+ + | Care Flight Radio Officer Name | Role | Phone | + +------+ + | Dian Lr NP | PCP | | + +------+ + Encounter Details +--------+ + + + + | Date | Type | Department | Care Team | Description | +--------+ + + + + | 07/21/ | Orders Only | [facility] | Conversion | | | 2019 | | INFECTIOUS DISEASE | Transaction, | | | | | [address] | Provider Unknown | | | | | [place], [place] | | | | | | [address] | (Fax) | | | | | [phone] | | | +--------+ + + + [...]
--- OUTSIDE RECORDS SUMMARY | ~2019-08-23 | XMS | Encounter Summary ---
Demographics + + + | Address | [address] | | | [place] [address] | + + + | Home Phone [...] + | Jessica Shepard | ECON | [address] | | | | | [place] | | | | | [address] | | + + + + + | Bel Solis | ECON | Unknown | | + + + + + Care Team Providers + +------+ + | Care Bottom Stop Attacher Name | Role | Phone | + +------+ + | Jamar Manuel MD | PCP | | + +------+ + Encounter Details +--------+---------+ + + + | Date | Type | Department | Care Team | Description | +--------+---------+ + + + | 04/18/ | Surgery | [facility] | Gianluca Robbins MD | [facility] | | 2019 | | [facility] | [address] | FEMORAL-TIBIAL | | | | OPERATING ROOM [address] | [address] [place], [place] | | | | | [address] | [address] | | | | | [place], [place] | | | | | | [address] | | | | | | [phone] | | | +--------+---------+ + + + [...] other chronic comorbidities who pre sents to [facility] ER on 04/06 for shortness of breath admitted with 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 The patient was admitted to regular medical floor and started on optimal medical management . On-call serging machine operator (Dr. Ruelas) recommended continued medical management. Patient [...] inferior defect with partial improvement at rest door to door sales representative was i nformed by hospitalist colleague recommended continued medical management without any surg ical intervention. Of note, the patient at another facility was noted to have strep bactere jsoh repeat blood cultures x2 demonstrate no growth [...] their primary care provider within 1 w [facility] after discharge, follow-up with ID in 2 weeks after discharge, follow-up with vascular s urgery as per their recommendations or otherwise within 2 weeks after discharge. The patien t will need to follow-up with his outpatient serging machine operator within 1 to 2 weeks after discharg [...] [facility] [address] [facility] [id number] Bhanu Seaman PA-C [address] [place] [facility] [address] In 2 weeks Jamar Manuel MD [address] [place] [address] Schedule an appointment as soon as possible for a visit in 1 week Hero Gaston MD [address] [facility] [address] Schedule an appointment as soon as possible for a visit in 2 weeks Post hospital discharge follow-up Dr. New Ruelas [address] [facility] [address] [facility] [address] Schedule an appointment as soon [...] mg per tablet aka: NORCO . Disposition: halfway Condition: Stable Code Status: Full Code Discharge [...] numbness Complications from anesthesia Date Last Reviewed: 08/20/201519990615-7964 [employer]. [address] [place] [address]. All righ ts reserved. This information is [...] Wakefield PA-C - 04/21/2019 8:21 AM PST [facility] Service: Vascular Surgery Progress Note SUBJECTIVE Patient Summary: 74 y.o. man with complex medical issues and LE ischemic ulcers, he wa s recently admitted to the [facility] from 03/28/19 to 04/04/19 where he was treated/ diagnosed with systolic heart failure, type 2 HI/NSTEMI, SHAE, ARF. O2 desaturation brought him from SNF to [facility] and current admission today with CHF and [...] Anaya RN - 04/20/2019 4:40 PM PST [facility] Service: Wound Care Follow Up Note [...] Primary Wound Type: Diabetic Ulcer Side: Left [place] ation: lateral Location: foot Wound Subtype: ulceration, [...] M D - 04/20/2019 2:16 PM PST [facility] Service: Hospitalist Progress Note Pt: Reagan [...] hematuria. Recent history notable for admit to [facility] from 03/28/19 to 04/04/2019 for CHF exacerbation with eventual dischar ge to [facility]. He then re-presented to same [...] encounter as of 04/20/19-14:16 IMAGING: Reviewed in [facility], no new results. PROBLEM LIST [...] Received 8 days of IV antibiotics at [facility] discharged home on with augmentin, now readmitted on 04/06 at [facility] and started on rocephin after [...] SQH Code status: Full Dispo: back to [facility] pending recovery from vascular bypass surgery (okay [...] as indicated. Thank You, Sunshine Love, PharmD, [facility] 04/20/19 1:52 PM Nandini Sánchez se, MD - 04/20/2019 8:56 AM PST [facility] Service: Infectious Diseases Progress Note Hospital [...] Component Value Units Date/Time Culture, Wound, Superficial [[id number]] (Abnormal) (Susceptibility) Collected: 04/06/191545 Order Status: Completed Lab Status: Final result Updated: 04/11/19 0728 Specimen: Body Fluid from Heel, Right Special Requests LT FOOT Special Requests Testing performed at [facility];[address] [place] [address] RESULT -- 1+ ENTEROCOCCUS FAECALIS Aminoglycosides (except [...] Sensitive SUSCEPTIBLE JESSICA Final Testing performed at [facility], [address] [place] [address] Culture, Wound, Superficial [[id number]] Collected: 04/06/191545 Order Status: Completed Lab Status: Final result Updated: 04/08/19 0937 Specimen: Body Fluid from Heel, Right Special Requests RIGHT FOOT Special Requests Testing performed at [facility];[address] [place] [address] RESULT -- 1+ NORMAL SKIN CELSA ISOLATED RESULT NO FURTHER WORKUP RESULT Testing performed at [facility], [address] [place] [address] Comment: Testing performed at [facility], [address] [place] [address] Microbiology Results (72 hrs) No results found [...] with dosing and monitorization. Discussed with case assistant regarding OPAT. Discussed with case assistant regarding discharge planning. Dr. Dolan will take over ID service tomorrow. Please call if questions. Hero Richardson MD, MPH Infectious Diseases 04/20/19 ubbard, Sheila Diallo RN - 04/19/2019 7:20 PM PSTEnd of shift chart check complete. Sheila Cabrera RN unshine Love, [facility] - 04/19/2019 3:23 PM PSTFormatting [...] Shaver MD - 04/19/2019 2:46 PM PST [facility] Service: Hospitalist Progress Note Pt: Reagan Shepard AGE/SEX: 74 y.o. male ROOM: [facility]/9119- : 1945 PCP: Jamar Manuel MD ADMIT DATE: 04/06/2019 TODAY'S DATE: 04/19/2019 Hospital Day/Hospital Course: LOS: 13 days Mr. Shepard is a 74-year-old gentleman with a history of bilateral nonhealing diabetic trisha t ulcers, and history of TBI, stroke, insulin dependent DM, who presents with CHF exacerbati on with hospital course complicated by gross hematuria. Recent history notable for admit to [facility] from 03/28/19 to 04/04/2019 for CHF exacerbation with eventual dischar ge to [facility]. He then re-presented to same [...] Received 8 days of IV antibiotics at [facility] discharged home on with augmentin, now readmitted on 04/06 at [facility] and started on rocephin after [...] SQH Code status: Full Dispo: back to [facility] pending recovery from vascular bypass surgery, final ID recs , tentatively planning for ~04/21 Grover Charles MD 2:46 PM 04/19/2019 Portions of this chart may have been copied from previous notes for continuity of care purp ose Hero Sánchez MD - 04/19/2019 9:53 AM PSTFormatting of this note might be different [facility] Service: Infectious Diseases Progress Note [...] Component Value Units Date/Time Culture, Wound, Superficial [[id number]] (Abnormal) (Susceptibility) Collected: 04/06/19 1546 Order Status: Completed Lab Status: Final result Updated: 04/11/19 0728 Specimen: Body Fluid from Heel, Right Special Requests LT FOOT Special Requests Testing performed at [facility];[address] [place] [address];[place] [address] RESULT -- 1+ ENTEROCOCCUS FAECALIS Aminoglycosides (except [...] Sensitive SUSCEPTIBLE JESSICA Final Testing performed at [facility], [address] [place] [address] Culture, Wound, Superficial [[id number]] Collected: 04/06/19 1546 Order Status: Completed Lab Status: Final result Updated: 04/08/1937 Specimen: Body Fluid from Heel, Right Special Requests RIGHT FOOT Special Requests Testing performed at [facility];[address] [place] [address] RESULT -- 1+ NORMAL SKIN CELSA ISOLATED RESULT NO FURTHER WORKUP RESULT Testing performed at [facility], [address] [place] [address] Comment: Testing performed at [facility], [address] [place] [address] Culture, Blood [[id number]] Collected: 04/06/198 Order Status: Completed Lab Status: Final result Updated: 04/12/19 0652 Specimen: Peripheral Blood Special Requests R WRIST Special Requests Testing performed at [facility];[address] [place] [address] RESULT NO GROWTH 6 DAYS RESULT Testing performed at [facility], [address] [place] [address] Comment: Testing performed at [facility], [address] [place] [address] Culture, Blood [[id number]] Collected: 04/06/19330 Order Status: Completed Lab Status: Final result Updated: 04/12/1952 Specimen: Peripheral Blood Special Requests L WRIST Special Requests Testing performed at [facility];[address] [place] [address] RESULT NO GROWTH 6 DAYS RESULT Testing performed at [facility], [address] [place] [address] Comment: Testing performed at [facility], [address] [place] [address] Microbiology Results (72 hrs) No results found [...] Pharmacy assisting with dosing and monitorization. Hero Richarsdon MD, MPH Infectious Diseases 04/19/19 Yoel Wakefield PA-C - 04/19/2019 9:21 AM PSTFormatting of this note might be different from the o riginal. [facility] Service: Vascular Surgery Progress Note SUBJECTIVE Patient Summary: 74 y.o. man with complex medical issues and LE ischemic ulcers, he wa s recently admitted to the [facility] from 03/28/19 to 04/04/19 where he was treated/ diagnosed with systolic heart failure, type 2 HI/NSTEMI, SHAE, ARF. O2 desaturation brought him from SNF to [facility] and current admission today with CHF and [...] Rachel Altamirano RN - 04/19/2019 5:46 AM [id number] left foot dressing change complete per order. [...] Grover Shaver MD - 4:52 PM PST [facility] Service: Hospitalist Progress Note Pt: Reagan Shepard AGE/SEX: 74 y.o. male ROOM: [facility] OR INTRA OP POOL/[facility]* : 1945 PCP: Jamar Manuel MD ADMIT DATE: 04/06/2019 TODAY'S DATE: 04/18/2019 Hospital Day/Hospital Course: LOS: 12 days Mr. Shepard is a 74-year-old gentleman with a history of bilateral nonhealing diabetic trisha t ulcers, and history of TBI, stroke, insulin dependent DM, who presents with CHF exacerbati on with hospital course complicated by gross hematuria. Recent history notable for admit to [facility] from 03/28/19 to 04/04/2019 for CHF exacerbation with eventual dischar ge to [facility]. He then re-presented to same [...] the last 72 hours. IMAGING: Reviewed in [facility], no new results. PROBLEM LIST [...] Received 8 days of IV antibiotics at [facility] discharged home on with augmentin, now readmitted on 04/06 at [facility] and started on rocephin after [...] SQH Code status: Full Dispo: back to [facility] pending cardiac evaluation/optimization, vascular bypass donna wero, [...] as indicated. Thank You, Sunshine Love, PharmD, [facility] 04/18/19 2:45 PM Syed López PTA - [...] might be different from t kevin original. [facility] Service: Infectious Diseases Progress Note Hospital [...] Component Value Units Date/Time Culture, Wound, Superficial [[id number]] (Abnormal) (Susceptibility) Collected: 04/06/19 1546 Order Status: Completed Lab Status: Final result Updated: 04/11/19 0728 Specimen: Body Fluid from Heel, Right Special Requests LT FOOT Special Requests Testing performed at [facility];[address] [place] [address];[place] [address] RESULT -- 1+ ENTEROCOCCUS FAECALIS Aminoglycosides (except [...] Sensitive SUSCEPTIBLE JESSICA Final Testing performed at [facility], [address] [place] [address] Culture, Wound, Superficial [[id number]] Collected: 04/06/19 1546 Order Status: Completed Lab Status: Final result Updated: 04/08/19 0937 Specimen: Body Fluid from Heel, Right Special Requests RIGHT FOOT Special Requests Testing performed at [facility];[address] [place] [address] RESULT -- 1+ NORMAL SKIN CELSA ISOLATED RESULT NO FURTHER WORKUP RESULT Testing performed at [facility], [address] [place] [address] Comment: Testing performed at [facility], [address] [place] [address] Culture, Blood [[id number]] Collected: 04/06/19 0338 Order Status: Completed Lab Status: Final result Updated: 04/12/19 0652 Specimen: Peripheral Blood Special Requests R WRIST Special Requests Testing performed at [facility];[address] [place] [address]18 RESULT NO GROWTH 6 DAYS RESULT Testing performed at [facility], [address] [place] [address] Comment: Testing performed at [facility], [address] [place] [address] 46853 Culture, Blood [[id number]] Collected: 04/06/19 0331 Order Status: Completed Lab Status: Final result Updated: 04/12/19 0652 Specimen: Peripheral Blood Special Requests L WRIST Special Requests Testing performed at [facility];[address] [place] [address] 16277 RESULT NO GROWTH 6 DAYS RESULT Testing performed at [facility], [address] [place] [address] Comment: Testing performed at [facility], [address] [place] [address] Microbiology Results (72 hrs) No results found [...] might be different from the o riginal. [facility] Service: Vascular Surgery Progress Note SUBJECTIVE Patient Summary: 74 y.o. man with complex medical issues and LE ischemic ulcers, he wa s recently admitted to the [facility] from 03/28/19 to 04/04/19 where he was treated/ diagnosed with systolic heart failure, type 2 HI/NSTEMI, SHAE, ARF. O2 desaturation brought him from SNF to [facility] and current admission today with CHF and [...] of feet - [facility]. Cryovein is in [...] chart check review Sunshine Chen [facility] - 04/17/2019 1:38 PM PST [...] as indicated. Thank You, Sunshine Love, PharmD, [facility] 04/17/19 1:38 PM Grover Shaver MD - 04/17/2019 12:25 PM PST [facility] Service: Hospitalist Progress Note Pt: Reagan Shepard AGE/SEX: 74 y.o. male ROOM: [id number] : 1945 PCP: Jamar aMnuel MD ADMIT DATE: 04/06/2019 TODAY'S DATE: 04/17/2019 Hospital Day/Hospital Course: LOS: 11 days Mr. Shepard is a 74-year-old gentleman with a history of bilateral nonhealing diabetic trisha t ulcers, and history of TBI, stroke, insulin dependent DM, who presents with CHF exacerbati on with hospital course complicated by gross hematuria. Recent history notable for admit to [facility] from 03/28/19 to 04/04/2019 for CHF exacerbation with eventual dischar ge to [facility]. He then re-presented to same [...] Received 8 days of IV antibiotics at [facility] discharged home on with augmentin, now readmitted on 04/06 at [facility] and started on rocephin after [...] SQH Code status: Full Dispo: back to [facility] pending cardiac evaluation/optimization, vascular bypass donna wero, final ID recs, tentatively planning for ~04/21 Grover Charles MD 12:25 PM 04/17/2019 Portions of this chart may have been copied from previous notes for continuity of care purp ose Rico Modi MD - 11:19 AM PST [facility] Service: Cardiology/[facility] Interventional cardiology note RE: Reagan [...] minimal reversib ility 2. Recent non-Q wave HI 3. Severe peripheral vascular disease 4. Diabetes [...] this note [facility] be [facility] Service: Infectious Diseases Progress Note [...] Component Value Units Date/Time Culture, Wound, Superficial [[id number]] (Abnormal) (Susceptibility) Collected: 04/06/19 1546 Order Status: Completed Lab Status: Final result Updated: 04/11/19 0728 Specimen: Body Fluid from Heel, Right Special Requests LT FOOT Special Requests Testing performed at [facility];[address] [place] [address];[place] [address] RESULT -- 1+ ENTEROCOCCUS FAECALIS Aminoglycosides (except [...] Sensitive SUSCEPTIBLE JESSICA Final Testing performed at [facility], [address] [place] [address] 22084 Culture, Wound, Superficial [[id number]] Collected: 04/06/19 1546 Order Status: Completed Lab Status: Final result Updated: 04/08/19936 Specimen: Body Fluid from Heel, Right Special Requests RIGHT FOOT Special Requests Testing performed at [facility];[address] [place] [address] RESULT -- 1+ NORMAL SKIN CELSA ISOLATED RESULT NO FURTHER WORKUP RESULT Testing performed at [facility], [address] [place] [address] Comment: Testing performed at [facility], [address] [place] [address] 48020 Culture, Blood [[id number]] Collected: 04/06/198 Order Status: Completed Lab Status: Final result Updated: 04/12/1952 Specimen: Peripheral Blood Special Requests R WRIST Special Requests Testing performed at [facility];[address] [place] [address] 47688 RESULT NO GROWTH 6 DAYS RESULT Testing performed at [facility], [address] [place] [address] Comment: Testing performed at [facility], [address] [place] [address]305 Culture, Blood [[id number]] Collected: 04/06/191 Order Status: Completed Lab Status: Final result Updated: 04/12/1952 Specimen: Peripheral Blood Special Requests L WRIST Special Requests Testing performed at [facility];[address] [place] [address]017 RESULT NO GROWTH 6 DAYS RESULT Testing performed at [facility], [address] [place] [address] Comment: Testing performed at [facility], [address] [place] [address] Microbiology Results (72 hrs) No results found [...] might be different from the o riginal. [facility] Service: Vascular Surgery Progress Note SUBJECTIVE Patient Summary: 74 y.o. man with complex medical issues and LE ischemic ulcers, he wa s recently admitted to the [facility] from 03/28/19 to 04/04/19 where he was treated/ diagnosed with systolic heart failure, type 2 HI/NSTEMI, SHAE, ARF. O2 desaturation brought him from SNF to [facility] and current admission today with CHF and [...] Sánchez MD - 04/16/2019 6:49 PM PST [facility] Service: Infectious Diseases Progress Note Hospital [...] Component Value Units Date/Time Culture, Wound, Superficial [[id number]] (Abnormal) (Susceptibility) Collected: 04/06/19 1546 Order Status: Completed Lab Status: Final result Updated: 04/11/19 5328 Specimen: Body Fluid from Heel, Right Special Requests LT FOOT Special Requests Testing performed at [facility];[address] [place] [address]22 RESULT -- 1+ ENTEROCOCCUS FAECALIS Aminoglycosides (except [...] Sensitive SUSCEPTIBLE JESSICA Final Testing performed at [facility], [address] [place] [address] 51372 Culture, Wound, Superficial [[id number]] Collected: 04/06/19 1546 Order Status: Completed Lab Status: Final result Updated: 04/08/19 0937 Specimen: Body Fluid from Heel, Right Special Requests RIGHT FOOT Special Requests Testing performed at [facility];[address] [place] [address] 40662 RESULT -- 1+ NORMAL SKIN CELSA ISOLATED RESULT NO FURTHER WORKUP RESULT Testing performed at [facility], [address] [place] [address] Comment: Testing performed at [facility], [address] [place] [address] 41366 Culture, Blood [[id number]] Collected: 04/06/19 0338 Order Status: Completed Lab Status: Final result Updated: 04/12/19 0652 Specimen: Peripheral Blood Special Requests R WRIST Special Requests Testing performed at [facility];[address] [place] [address] 6[address]15 RESULT NO GROWTH 6 DAYS RESULT Testing performed at [facility], [address] [place] [address] Comment: Testing performed at [facility], [address] [place] [address] 20820 Culture, Blood [[id number]] Collected: 04/06/19 0331 Order Status: Completed Lab Status: Final result Updated: 04/12/19 0652 Specimen: Peripheral Blood Special Requests L WRIST Special Requests Testing performed at [facility];[address] [place] [address] 56229 RESULT NO GROWTH 6 DAYS RESULT Testing performed at [facility], [address] [place] [address] Comment: Testing performed at [facility], [address] [place] [address]242 Microbiology Results (72 hrs) No results found [...] note might be different from the original. [facility] Service: Hospitalist Progress Note Pt: Reagan [...] hematuria. Recent history notable for admit to [facility] from 03/28/19 to 04/04/2019 for CHF exacerbation with eventual dischar ge to [facility]. He then re-presented to same [...] 04/14/19 0629 BNP 587.58* IMAGING: Reviewed in [facility], no new results. PROBLEM LIST [...] Received 8 days of IV antibiotics at [facility] discharged home on with augmentin, now readmitted on 04/06 at [facility] and started on rocephin after [...] SQH Code status: Full Dispo: back to [facility] pending cardiac evaluation/optimization, vascular bypass donna wero, [...] 04/16/2019 3:21 PM Sunshine Chen, [facility] - 04/16/2019 12:18 PM PST [...] Patient encouraged to discuss medication changes with serging machine operator ragini stanley to stopping medications or making any changes. Patient's questions answered. Heart Fail ure Hot Line number provided to patient. Face to face time was spent with patient providing counseling and education for congestive heart failure. Bhanu Wakefield P A-C - 04/16/2019 8:43 AM PST [facility] Service: Vascular Surgery Progress Note SUBJECTIVE Patient Summary: 74 y.o. man with complex medical issues and LE ischemic ulcers, he wa s recently admitted to the [facility] from 03/28/19 to 04/04/19 where he was treated/ diagnosed with systolic heart failure, type 2 HI/NSTEMI, SHAE, ARF. O2 desaturation brought him from SNF to [facility] and current admission today with CHF and [...] MD - 04/15/2019 1 2:48 PM PST [facility] Service: Hospitalist Progress Note Pt: Reagan Shepard AGE/SEX: 74 y.o. male ROOM: [address] [place], [place] [id number]- : 1945 PCP: Jamar Manuel MD ADMIT DATE: 04/06/2019 TODAY'S DATE: 04/15/2019 Hospital Day/Hospital Course: LOS: 9 days Mr. Shepard is a 74-year-old gentleman with a history of bilateral nonhealing diabetic trisha t ulcers, and history of TBI, stroke, insulin dependent DM, who presents with CHF exacerbati on with hospital course complicated by gross hematuria. Recent history notable for admit to [facility] from 03/28/19 to 04/04/2019 for CHF exacerbation with eventual dischar ge to [facility]. He then re-presented to same [...] 04/14/19 0629 BNP 587.58* IMAGING: Reviewed in [facility], no new results. PROBLEM LIST [...] risk stratification . -cardiology consulted -NPO at [place] for nuc med stress test in morning [...] Received 8 days of IV antibiotics at [facility] discharged home on with augmentin, now readmitted on 04/06 at [facility] and started on rocephin after [...] SQH Code status: Full Dispo: back to [facility] pending cardiac evaluation/optimization, vascular bypass donna wero, final ID recs, likely 4-5 more days in hospital Grover Charles MD 12:48 PM 04/15/2019 Portions of this chart may have been copied from previous notes for continuity of care purp ose roctor, Sheila Brown [facility] - 04/15/2019 10:55 AM PST [...] might be differ ent from the original. [facility] Service: Infectious Diseases Progress Note Hospital [...] Component Value Units Date/Time Culture, Wound, Superficial [[id number]] (Abnormal) (Susceptibility) Collected: 04/06/191545 Order Status: Completed Lab Status: Final result Updated: 04/11/19 0728 Specimen: Body Fluid from Heel, Right Special Requests LT FOOT Special Requests Testing performed at [facility];[address] [place] [address] 83305 RESULT -- 1+ ENTEROCOCCUS FAECALIS Aminoglycosides (except [...] Sensitive SUSCEPTIBLE JESSICA Final Testing performed at [facility], [address] [place] [address] 49151 Culture, Wound, Superficial [[id number]] Collected: 04/06/191545 Order Status: Completed Lab Status: Final result Updated: 04/08/19 0937 Specimen: Body Fluid from Heel, Right Special Requests RIGHT FOOT Special Requests Testing performed at [facility];[address] [place] [address] 37336 RESULT -- 1+ NORMAL SKIN CELSA ISOLATED RESULT NO FURTHER WORKUP RESULT Testing performed at [facility], [address] [place] [address] Comment: Testing performed at [facility], [address] [place] [address] 49699 Culture, Blood [[id number]] Collected: 04/06/19 0338 Order Status: Completed Lab Status: Final result Updated: 04/12/1952 Specimen: Peripheral Blood Special Requests R WRIST Special Requests Testing performed at [facility];[address] [place] [address] 22585 RESULT NO GROWTH 6 DAYS RESULT Testing performed at [facility], [address] [place] [address]999 Comment: Testing performed at [facility], [address] [place] [address] 74110 Culture, Blood [[id number]] Collected: 04/06/19330 Order Status: Completed Lab Status: Final result Updated: 04/12/1952 Specimen: Peripheral Blood Special Requests L WRIST Special Requests Testing performed at [facility];[address] [place] [address] 78985 RESULT NO GROWTH 6 DAYS RESULT Testing performed at [facility], [facility] [place] [address] Comment: Testing performed at [facility], [address] [place] [address] 35094 Microbiology Results (72 hrs) No results found [...] hematuria. Recent history notable for admit to [facility] from 03/28/19 to 04/04/2019 for CHF exacerbation with eventual dischar ge to [facility]. He then re-presented to same [...] 04/14/19 0629 BNP 587.58* IMAGING: Reviewed in [facility], no new results. PROBLEM LIST [...] Received 8 days of IV antibiotics at [facility] discharged home on with augmentin, now readmitted on 04/06 at [facility] and started on rocephin after [...] H Code status: Full Dispo: back to [facility] pending improvement in gross hematuria, CHF exacerbation, re peat angiogram, final ID recs, likely 4-5 more days in hospital Grover Charles MD 1:29 PM 04/14/2019 Portions of this chart may have been copied from previous notes for continuity of care purp ose Lyric Molina RN - 04/14/2019 1:27 PM PST [facility] Service: Wound Care Follow Up Note [...] [facility] Inpatient Wound Ost[facility] Care [phone] 04/14/2019 1:29 PM Dheeraj Barraza, PT - [...] Luciano RN obrandi, Meghan Wolff, [facility] - 04/14/2019 6:31 AM PST [...] Shaver MD - 04/13/2019 4:02 PM PST [facility] Service: Hospitalist Progress Note Pt: Reagan Shepard AGE/SEX: 74 y.o. male ROOM: [facility]/4452-01 : 1945 PCP: Jamar Manuel MD ADMIT DATE: 04/06/2019 TODAY'S DATE: 04/13/2019 Hospital Day/Hospital Course: LOS: 7 days Mr. Shepard is a 74-year-old gentleman with a history of bilateral nonhealing diabetic trisha t ulcers, and history of TBI, stroke, insulin dependent DM, who presents with CHF exacerbati on with hospital course complicated by gross hematuria. Recent history notable for admit to [facility] from 03/28/19 to 04/04/2019 for CHF exacerbation with eventual dischar ge to [facility]. He then re-presented to same [...] the last 168 hours. IMAGING: Reviewed in [facility], no new results. PROBLEM LIST [...] Received 8 days of IV antibiotics at [facility] discharged home on with augmentin, now readmitted on 04/06 at [facility] and started on rocephin after [...] with age appropriate cancer screening PPx: [facility] Code status: Full Dispo: back to [facility] pending improvement in gross hematuria, CHF exacerbation, [...] 113.3 kg Adjusted body weight: 89.1 kg Atkins body weight: 73 kg Current Vital Signs: [...] [facility] Drawing a level once the patient [...] se, MD - 04/13/2019 10:54 AM PST [facility] Service: Infectious Diseases Progress Note Hospital [...] Component Value Units Date/Time Culture, Wound, Superficial [[id number]] (Abnormal) (Susceptibility) Collected: 04/06/19 1546 Order Status: Completed Lab Status: Final result Updated: 04/11/19 0728 Specimen: Body Fluid from Heel, Right Special Requests LT FOOT Special Requests Testing performed at [facility];[address] [place] [address];[place] [address] RESULT -- 1+ ENTEROCOCCUS FAECALIS Aminoglycosides (except [...] Sensitive SUSCEPTIBLE JESSICA Final Testing performed at [facility], [address] [place] [address] 19193 Culture, Wound, Superficial [[id number]] Collected: 04/06/19 1546 Order Status: Completed Lab Status: Final result Updated: 04/08/19936 Specimen: Body Fluid from Heel, Right Special Requests RIGHT FOOT Special Requests Testing performed at [facility];[address] [place] [address] 37870 RESULT -- 1+ NORMAL SKIN CELSA ISOLATED RESULT NO FURTHER WORKUP RESULT Testing performed at [facility], [address] [place] [address] Comment: Testing performed at [facility], [address] [place] [address] 76385 Culture, Blood [[id number]] Collected: 04/06/198 Order Status: Completed Lab Status: Final result Updated: 04/12/19651 Specimen: Peripheral Blood Special Requests R WRIST Special Requests Testing performed at [facility];[address] [place] [address] 12358 RESULT NO GROWTH 6 DAYS RESULT Testing performed at [facility], [address] [place] [address] 60947 Comment: Testing performed at [facility], [address] [place] [address] 52255 Culture, Blood [[id number]] Collected: 04/06/19 033 Order Status: Completed Lab Status: Final result Updated: 04/12/19651 Specimen: Peripheral Blood Special Requests L WRIST Special Requests Testing performed at [facility];[address] [place] [address] 54898 RESULT NO GROWTH 6 DAYS RESULT Testing performed at [facility], [address] [place] [address] Comment: Testing performed at [facility], [address] [place] [address] 59279 Microbiology Results (72 hrs) No results found [...] might be different from the o riginal. [facility] Service: Vascular Surgery Progress Note SUBJECTIVE Patient Summary: 74 y.o. man with complex medical issues and LE ischemic ulcers, he wa s recently admitted to the [facility] from 03/28/19 to 04/04/19 where he was treated/ diagnosed with systolic heart failure, type 2 HI/NSTEMI, SHAE, ARF. O2 desaturation brought him from SNF to [facility] and current admission today with CHF and [...] risks. Signed consent obtained. Will proceed to [facility] [employer] today for right leg angiogram. Moderate Sedation [...] might be different from the o riginal. [facility] Service: Infectious Diseases Progress Note Hospital [...] Component Value Units Date/Time Culture, Wound, Superficial [[id number]] (Abnormal) (Susceptibility) Collected: 04/06/19 1546 Order Status: Completed Lab Status: Final result Updated: 04/11/19 0728 Specimen: Body Fluid from Heel, Right Special Requests LT FOOT Special Requests Testing performed at [facility];[address] [place] [address] 99067 RESULT -- 1+ ENTEROCOCCUS FAECALIS Aminoglycosides (except [...] JESSICA Final Trimethoprim + Sulfamethoxazole Resistant RESISTANT EJSSICA Final Vancomycin Sensitive SUSCEPTIBLE JESSICA Final Testing performed at [facility], [address] [place] [address] 01042 Culture, Wound, Superficial [[id number]] Collected: 04/06/19 1546 Order Status: Completed Lab Status: Final result Updated: 04/08/19 0937 Specimen: Body Fluid from Heel, Right Special Requests RIGHT FOOT Special Requests Testing performed at [facility];[address] [place] [address] 57611 RESULT -- 1+ NORMAL SKIN CELSA ISOLATED RESULT NO FURTHER WORKUP RESULT Testing performed at [facility], [address] [place] [address] Comment: Testing performed at [facility], [address] [place] [address] 62663 Culture, Blood [[id number]] Collected: 04/06/19 0338 Order Status: Completed Lab Status: Final result Updated: 04/12/19 0652 Specimen: Peripheral Blood Special Requests R WRIST Special Requests Testing performed at [facility];[address] [place] [address] 03259 RESULT NO GROWTH 6 DAYS RESULT Testing performed at [facility], [address] [place] [address] Comment: Testing performed at [facility], [address] [place] [address] 03044 Culture, Blood [[id number]] Collected: 04/06/19 0331 Order Status: Completed Lab Status: Final result Updated: 04/12/1952 Specimen: Peripheral Blood Special Requests L WRIST Special Requests Testing performed at [facility];[address] [place] [address] 53111 RESULT NO GROWTH 6 DAYS RESULT Testing performed at [facility], [address] [place] [address] Comment: Testing performed at [facility], [address] [place] [address] 80040 Microbiology Results (72 hrs) No results found [...] this note might be different from the [facility] Service: Hospitalist Progress [...] hematuria. Recent history notable for admit to [facility] from 03/28/19 to 04/04/2019 for CHF exacerbation with eventual dischar ge to [facility]. He then re-presented to same [...] Received 8 days of IV antibiotics at [facility] discharged home on with augmentin, now readmitted on 04/06 at [facility] and started on rocephin after [...] H Code status: Full Dispo: back to [facility] pending improvement in gross hematuria, CHF exacerbation, re peat angiogram, final ID recs, likely 4-5 more days in hospital Grover Charles MD 4:43 PM 04/12/2019 Portions of this chart may have been copied from previous notes for continuity of care purp ose Bhanu Wakefield PA-C - 04/12/2019 4:00 PM PST [facility] Service: Vascular Surgery Progress Note SUBJECTIVE Patient Summary: 74 y.o. man with complex medical issues and LE ischemic ulcers, he wa s recently admitted to the [facility] from 03/28/19 to 04/04/19 where he was treated/ diagnosed with systolic heart failure, type 2 HI/NSTEMI, SHAE, ARF. O2 desaturation brought him from SNF to [facility] and current admission today with CHF and [...] Bhanu Seaman PA-C Vascular Surgery Sunshine Chen, [facility] - 04/12/2019 12:27 PM PST Vancomycin Dosing Per Pharmacy Subjective/Objective Reagan Shepard is a 74 y.o. 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 Additional antimicrobials: zosyn Quadriplegic/Paraplegic: no Diabetes: yes Baseline Serum Creatinine: 0.6 mg/dL Actual weight: 113.3 kg Adjusted body weight: 89.1 kg Atkins body weight: 73 kg Current Vital Signs: [...] as indicated. Thank You, Sunshine Love, PharmD, [facility] 04/12/19 3:27 PM Grover Shaver MD - 04/11/2019 5:06 PM PST [facility] Service: Hospitalist Progress Note Pt: Reagan [...] hematuria. Recent history notable for admit to [facility] from 03/28/19 to 04/04/2019 for CHF exacerbation with eventual dischar ge to [facility]. He then re-presented to same [...] INR 1.2 PTT 34* IMAGING: Reviewed in [facility], no new results. PROBLEM LIST [...] Received 8 days of IV antibiotics at [facility] discharged home on with augmentin, now readmitted on 04/06 at [facility] and started on rocephin after [...] above) Code status: Full Dispo: back to [facility] pending improvement in gross hematuria and CHF exacerbation Grover Charles MD 5:06 PM 04/11/2019 Portions of this chart may have been copied from previous notes for continuity of care purp ose roctor, Sheila Brown [facility] - 04/11/2019 2:03 PM PST Vancomycin Dosing Per Pharmacy Subjective/Objective Reagan Shepard is a 74 y.o. 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 Additional antimicrobials: zosyn Quadriplegic/Paraplegic: no Diabetes: yes Baseline Serum Creatinine: 0.6 mg/dL Actual weight: 113.3 kg Adjusted body weight: 89.1 kg Atkins body weight: 73 kg Current Vital Signs: [...] therapy as indicated. Thank You, Sheila Ahuja, [facility], 04/11/2019, 1:51 PM Hero Sánchez MD - 04/11/2019 10:09 AM PSTFormatting of this note might be different from stephanie brown original. [facility] Service: Infectious Diseases Progress Note Hospital [...] Component Value Units Date/Time Culture, Wound, Superficial [[id number]] (Abnormal) (Susceptibility) Collected: 04/06/19 1546 Order Status: Completed Lab Status: Final result Updated: 04/11/1928 Specimen: Body Fluid from Heel, Right Special Requests LT FOOT Special Requests Testing performed at [facility];[address] [place] [address];[place] [address] RESULT -- 1+ ENTEROCOCCUS FAECALIS Aminoglycosides (except [...] Sensitive SUSCEPTIBLE JESSICA Final Testing performed at [facility], [address] [place] [address], [place] [address] Culture, Wound, Superficial [[id number]] Collected: 04/06/19 1546 Order Status: Completed Lab Status: Final result Updated: 04/08/19 0937 Specimen: Body Fluid from Heel, Right Special Requests RIGHT FOOT Special Requests Testing performed at [facility];[address] [place] [address] 50415 RESULT -- 1+ NORMAL SKIN CELSA ISOLATED RESULT NO FURTHER WORKUP RESULT Testing performed at [facility], [address] [place] [address] 48385 Comment: Testing performed at [facility], [address] [place] [address] 74445 Culture, Blood [[id number]] Collected: 04/06/19 0338 Order Status: Completed Lab Status: Preliminary result Updated: 04/07/19 0813 Specimen: Peripheral Blood Special Requests R WRIST Special Requests Testing performed at [facility];[address] [place] [address] 43252 RESULT NO GROWTH AT THIS TIME RESULT Testing performed at [facility], [address] [place] [address] 55305 Comment: Testing performed at [facility], [address] [place] [address] 33642 Culture, Blood [[id number]] Collected: 04/06/19 0331 Order Status: Completed Lab Status: Preliminary result Updated: 04/07/19 0813 Specimen: Peripheral Blood Special Requests L WRIST Special Requests Testing performed at [facility];[address] [place] [address] 50957 RESULT NO GROWTH AT THIS TIME RESULT Testing performed at [facility], [address] [place] [address] 22360 Comment: Testing performed at [facility], [address] [place] [address] 28263 Microbiology Results (72 hrs) No results found [...] Shaver MD - 04/10/2019 4:51 PM PST [facility] Service: Hospitalist Progress Note Pt: Reagan Shepard AGE/SEX: 74 y.o. male ROOM: [facility]/4[facility]-01 : 1945 PCP: Jamar Manuel MD ADMIT DATE: 04/06/2019 TODAY'S DATE: 04/10/2019 Hospital Day/Hospital Course: LOS: 4 days Mr. Shepard is a 74-year-old gentleman with a history of bilateral nonhealing diabetic trisha t ulcers, and history of TBI, stroke, insulin dependent DM, who presents with CHF exacerbati on with hospital course complicated by gross hematuria. Recent history notable for admit to [facility] from 03/28/19 to 04/04/2019 for CHF exacerbation with eventual dischar ge to [facility]. He then re-presented to same [...] INR 1.2 PTT 34* IMAGING: Reviewed in [facility], no new results. PROBLEM LIST [...] Received 8 days of IV antibiotics at [facility] discharged home on with augmentin, now readmitted on 04/06 at [facility] and started on rocephin after [...] above) Code status: Full Dispo: back to [facility] pending improvement in gross hematuria and CHF exacerbation Grover Charles MD 4:51 PM 04/10/2019 Portions of this chart may have been copied from previous notes for continuity of care purp ose Hero Sánchez MD - 04/10/2019 2:27 PM PSTFormatting of this note might be different from the [facility] Service: Infectious Diseases Progress Note [...] Component Value Units Date/Time Culture, Wound, Superficial [[id number]] (Abnormal) (Susceptibility) Collected: 04/06/191545 Order Status: Completed Lab Status: Preliminary result Updated: 04/10/19 0987 Specimen: Body Fluid from Heel, Right Special Requests LT FOOT Special Requests Testing performed at [facility];[address] [place] [address];[place] [address] RESULT -- 1+ ENTEROCOCCUS FAECALIS Aminoglycosides (except for high-level resistance testing), cephalosporins, clindamycin, an d trimethoprim-sulfamethoxazole may appear active in vitro but they are not effective clinic ally. RESULT -- 1+ ENTEROBACTER CLOACAE COMPLEX RESULT -- 1+ STAPHYLOCOCCUS AUREUS RESULT SUSCEPTIBILITY TO FOLLOW RESULT Testing performed at [facility], [address] [place] [address] Susceptibility Enterococcus faecalis (1) Antibiotic Interpretation Microscan [...] Sensitive SUSCEPTIBLE JESSICA Preliminary Testing performed at [facility], [address] [place] [address] 54708 Culture, Wound, Superficial [[id number]] Collected: 04/06/191545 Order Status: Completed Lab Status: Final result Updated: 04/08/19936 Specimen: Body Fluid from Heel, Right Special Requests RIGHT FOOT Special Requests Testing performed at [facility];[address] [place] [address] 38531 RESULT -- 1+ NORMAL SKIN CELSA ISOLATED RESULT NO FURTHER WORKUP RESULT Testing performed at [facility], [address] [place] [address] 81459 Comment: Testing performed at [facility], [address] [place] [address] 39704 Culture, Blood [[id number]] Collected: 04/06/19337 Order Status: Completed Lab Status: Preliminary result Updated: 04/07/19812 Specimen: Peripheral Blood Special Requests R WRIST Special Requests Testing performed at [facility];[address] [place] [address] 22308 RESULT NO GROWTH AT THIS TIME RESULT Testing performed at [facility], [address] [place] [address] 73520 Comment: Testing performed at [facility], [address] [place] [address] 72406 Culture, Blood [[id number]] Collected: 04/06/19330 Order Status: Completed Lab Status: Preliminary result Updated: 04/07/19812 Specimen: Peripheral Blood Special Requests L WRIST Special Requests Testing performed at [facility];[address] [place] [address] 83508 RESULT NO GROWTH AT THIS TIME RESULT Testing performed at [facility], [address] [place] [address] 24581 Comment: Testing performed at [facility], [address] [place] [address] 41436 Microbiology Results (72 hrs) No results found [...] with attending provider: Grover Charles MD . eHro Richardson MD, MPH Infectious Diseases 04/10/19 inesh, Aleksander Brown MD - 04/10/2019 1:26 PM PSTFormatting of this note might be different from the ramiro melyssa. [facility] Service: Urology Progress Note Hospital Day: [...] of congestive failure. Signed by: Madison Solis [facility] Sign Date/Time: 04/09/2019 9:25 AM [...] essential h ypertension, insulin-dependent diabetes, history of HI, GERD, ischemic stroke, diffuse signi ficant peripheral [...] Lujan MD - 04/09/2019 6:21 PM PST [facility] Service: Urology Progress Note Hospital Day: LOS: 3 days Post-Op Day: * No surgery found * SUBJECTIVE Events Overnight: This 74-year-old gentleman with a known history of insulin-dependen t diabetes mellitus, advanced peripheral vascular disease, osteomyelitis of right foot, diab etic foot ulcers which are significant and advanced in both feet, left hemiparesis, essentia l hypertension, hyperkalemia, history of GERD and non-STEMI HI, history of bacteremia, histo ry of stroke. [...] Color, UA STRAW Clarity, UA CLEAR Specific [place], Urine 1.006 1.002 - 1.030 Leukocyte esterase, [...] this note might be different from the [facility]: Vascular Surgery Progress Note SUBJECTIVE Patient Summary: 74 y.o. man with complex medical issues and LE ischemic ulcers, he wa s recently admitted to the [facility] from 03/28/19 to 04/04/19 where he was treated/ diagnosed with systolic heart failure, type 2 HI/NSTEMI, SHAE, ARF. O2 desaturation brought him from SNF to [facility] and current admission today with CHF and [...] will have him scheduled for 04/12/2019 at [facility] [employer] for his first leg, then will plan [...] Hospitalist Progress Note Reagan Shepard 74 y.o. [id number] male Jamar Manuel MD Hospital Day: LOS: 3 days Patient Summary: 74-year-old gentleman with past medical history of bilateral nonheali ng diabetic foot ulcer, and history of traumatic brain injury, stroke, diabetes mellitus typ e 2 insulin-dependent who was recently admitted to [facility] from 03/28/21 020 with acute hypoxic respiratory failure secondary to systolic CHF exacerbation with eject ion fraction of 40%, CTA chest negative for PE, troponin was minimally elevated 0.44 treated conservatively with medical therapy discharge to [facility] who went back to [facility] emergency department with worsening shortness [...] 04/09/2019 1044 Gross per 24 hour Intake 18988 ml Output 9850 ml Net 856 ml [...] 8 days of IV antibiotic at [facility] discharged home on on Augmentin readmitted on at [facility] and started on Rocephin after sending 2 set of blood cultures which remain negative. Wound culture gre w Enterobacter and Enterococcus faecalis Plan antibiotic changed to Zosyn, Rocephin discontinued Infectious disease consulted Anemia secondary to iron deficiency Plan continue on IV iron day 3, guaiac stools -ve Hypomagnesemia repleted DVT prophylaxis on heparin currently on hold due to hematuria Ady Yni MD 04/09/2019 Sallie Da Silva DPM - 04/09/2019 7:05 AM PSTFormatting of this note might be different from the o riginal. [facility] Service: Podiatry Progress Note Hospital Day: LOS: 3 days Post-Op Day: * No surgery found * SUBJECTIVE Patient Summary: The patient is 74 y.o. male with significant cardiac and IDDM2 past medical history with recent admissions to [facility] where he was found to have el evated troponin level and he became decompensated and desaturated and was transferred to [facility] for a higher level of care. [...] Ady Mata RN - 04/08/2019 9:49 PM [id number]: pt a/o to all, vss. cbi in [...] 04/08/2019 1:18 PM PST Hospitalist Progress Note eRagan Shepard 74 y.o. [id number] male Jamar Manuel MD Hospital Day: LOS: 2 days Patient Summary: 74-year-old gentleman with past medical history of bilateral nonheali ng diabetic foot ulcer, and history of traumatic brain injury, stroke, diabetes mellitus typ e 2 insulin-dependent who was recently admitted to [facility] from 03/28/21 020 with acute hypoxic respiratory failure secondary to systolic CHF exacerbation with eject ion fraction of 40%, CTA chest negative for PE, troponin was minimally elevated 0.44 treated conservatively with medical therapy discharge to [facility] who went back to [facility] emergency department with worsening shortness [...] results found for: POCTEMP, POCFIO2, POCPO2, BEART @[facility]@ PROBLEM LIST Principal Problem: Gross [...] 8 days of IV antibiotic at [facility] discharged home on on Augmentin readmitted on at [facility] and started on Rocephin after sending [...] might be different from th e original. [facility] Service: Cardiology Progress Note Hospital Day: [...] Nandini Barboza RN - 04/07/2019 10:48 PM [id number]: pt a/o to all, occasionally forgetful, vss. [...] Hospitalist Progress Note Reagan Shepard 74 y.o. [id number] male Jamar Manuel MD Hospital Day: LOS: 1 day Patient Summary: 74-year-old gentleman with past medical history of bilateral nonheali ng diabetic foot ulcer, and history of traumatic brain injury, stroke, diabetes mellitus typ e 2 insulin-dependent who was recently admitted to [facility] from 03/28/21 020 with acute hypoxic respiratory failure secondary to systolic CHF exacerbation with eject ion fraction of 40%, CTA chest negative for PE, troponin was minimally elevated 0.44 treated conservatively with medical therapy discharge to [facility] who went back to [facility] emergency department with worsening shortness [...] 8 days of IV antibiotic at [facility] discharged home on on Augmentin readmitted on at [facility] and started on Rocephin after sending [...] might be different from th tiffany original. [facility] Service: Cardiology Progress Note Hospital Day: [...] Andrés Novoa RN - 04/06/2019 10:15 AM [facility] Service: Wound/Ostomy Care Progress Note [...] | | | | | right foot ([facility]) | 04/20/2019 until | | | | | | 04/20/2020 | + +---------+--------+ + + | Comprehensive | Lab | Routin | Other | Weekly for 2 | | Metabolic Panel | | e | osteomyelitis of | Occurrences starting | | | | | right foot ([facility]) | 04/20/2019 until | | | | | | 04/20/2020 | + +---------+--------+ + + | C-Reactive Protein | Lab | Routin | Other | Weekly for 6 | | | | e | osteomyelitis of | Occurrences starting | | | | | right foot ([facility]) | 04/20/2019 until | | | | | | 04/20/2020 | + +---------+--------+ + + | Sedimentation Rate | Lab | Routin | Other | Weekly for 6 | | | | e | osteomyelitis of | Occurrences starting | | | | | right foot ([facility]) | 04/20/2019 until | | [...] 3.6 | 2.3 - 4.8 mg/dL | [facility] | | | | | | LABORATORY | | + + + + + + | Estimated | >60Comment: GFR <60: | >60 | [facility] | | | GFR | [...] | | | | | | MDRD IDND traceable | | | | | | equation.Testing | | | | | | performed at [facility];[employer] | | | | | | [facility];[place], [place] | | | | | | [address] | | | | + + + + + + + + | Specimen | + + | Blood | + + + + + + + | Performing | Address | City/State/Zipcode | Phone Number | | Organization | | | | + + + + + | [facility] | [address] | [place] [address] | [phone] | + + + + + POC Glucose (04/21/2019 11:54 AM PST) + + + + + + | Component | Value | Ref Range | Performed | Pathologist | | | | | At | Signature | + + + + + + | Glucose, | 164 (H)Comment: Testing | 65 - 99 mg/dL | [facility] | | | POC | performed at [facility];[address] | | LABORATORY | | | | [address];[place] | | | | | | [address] | | | | + + + + + + + + | Specimen | + + | | + + + + + + + | Performing | Address | City/State/Zipcode | Phone Number | | Organization | | | | + + + + + | [facility] | [address] | [place] [address] | [phone] | + + + + + POC [...] | | | POC | performed at [facility];[address] | | LABORATORY | | | | [address];[place], [place] | | | | | | [address] | | | | + + + + + + + + | Specimen | + + | | + + + + + + + | Performing | Address | City/State/Zipcode | Phone Number | | Organization | | | | + + + + + | [facility] | [address] | [place] [address] | [phone] | + + + + + POC [...] | | | POC | performed at [facility];[address] | | LABORATORY | | | | [address];[place] | | | | | | [address] | | | | + + + + + + + + | Specimen | + + | | + + + + + + + | Performing | Address | City/State/Zipcode | Phone Number | | Organization | | | | + + + + + | [facility] | [address] | [place] [address] | [phone] | + + + + + POC Glucose (04/20/2019 9:08 PM PST) + + + + + + | Component | Value | Ref Range | Performed | Pathologist | | | | | At | Signature | + + + + + + | Glucose, | 157 (H)Comment: Testing | 65 - 99 mg/dL | [facility] | | | POC | performed at [facility];[address] | | LABORATORY | | | | [address];[place] | | | | | | [address] | | | | + + + + + + + + | Specimen | + + | | + + + + + + + | Performing | Address | City/State/Zipcode | Phone Number | | Organization | | | | + + + + + | [facility] | [address] | [place] [address] | [phone] | + + + + + POC [...] | | | POC | performed at [facility];[address] | | LABORATORY | | | | [address];[place], [place] | | | | | | [address] | | | | + + + + + + + + | Specimen | + + | | + + + + + + + | Performing | Address | City/State/Zipcode | Phone Number | | Organization | | | | + + + + + | [facility] | [address] | [place] [address] | [phone] | + + + + + POC Glucose (04/20/2019 5:04 PM PST) + + + + + + | Component | Value | Ref Range | Performed | Pathologist | | | | | At | Signature | + + + + + + | Glucose, | 199 (H)Comment: Testing | 65 - 99 mg/dL | [facility] | | | POC | performed at [facility];[address] | | LABORATORY | | | | [address];[place] | | | | | | [address] | | | | + + + + + + + + | Specimen | + + | | + + + + + + + | Performing | Address | City/State/Zipcode | Phone Number | | Organization | | | | + + + + + | [facility] | [address] | [place] [address] | [phone] | + + + + + POC Glucose (04/20/2019 12:44 PM PST) + + + + + + | Component | Value | Ref Range | Performed | Pathologist | | | | | At | Signature | + + + + + + | Glucose, | 273 (H)Comment: Testing | 65 - 99 mg/dL | [facility] | | | POC | performed at [facility];[address] | | LABORATORY | | | | [address];[place], [place] | | | | | | [address] | | | | + + + + + + + + | Specimen | + + | | + + + + + + + | Performing | Address | City/State/Zipcode | Phone Number | | Organization | | | | + + + + + | [facility] | [address] | [place] [address] | [phone] | + + + + + Vancomycin Level (04/20/2019 12:39 PM PST) + + + + + + | Component | Value | Ref Range | Performed | Pathologist | | | | | At | Signature | + + + + + + | Vancomycin | 18.3Comment: Testing | ug/mL | [facility] | | | Random, | performed at [facility];[address] | | LABORATORY | | | Serum | [address];[place], [place] | | | | | | [address] | | | | + + + + + + + + | Specimen | + + | Blood | + + + + + + + | Performing | Address | City/State/Zipcode | Phone Number | | Organization | | | | + + + + + | [facility] | [address] | [place] [address] | [phone] | + + + + + POC Glucose (04/20/2019 8:58 AM PST) + + + + + + | Component | Value | Ref Range | Performed | Pathologist | | | | | At | Signature | + + + + + + | Glucose, | 244 (H)Comment: Testing | 65 - 99 mg/dL | [facility] | | | POC | performed at [facility];[address] | | LABORATORY | | | | [address];[place] | | | | | | [address] | | | | + + + + + + + + | Specimen | + + | | + + + + + + + | Performing | Address | City/State/Zipcode | Phone Number | | Organization | | | | + + + + + | [facility] | [address] | [place] [address] | [phone] | + + + + + POC Glucose (04/20/2019 8:16 AM PST) + + + + + + | Component | Value | Ref Range | Performed | Pathologist | | | | | At | Signature | + + + + + + | Glucose, | 300 (H)Comment: Testing | 65 - 99 mg/dL | [facility] | | | POC | performed at [facility];[address] | | LABORATORY | | | | [address];[place] | | | | | | [address] | | | | + + + + + + + + | Specimen | + + | | + + + + + + + | Performing | Address | City/State/Zipcode | Phone Number | | Organization | | | | + + + + + | [facility] | [address] | [place] [address] | [phone] | + + + + + POC [...] | | | POC | performed at [facility];[address] | | LABORATORY | | | | [address];[place], [place] | | | | | | [address] | | | | + + + + + + + + | Specimen | + + | | + + + + + + + | Performing | Address | City/State/Zipcode | Phone Number | | Organization | | | | + + + + + | [facility] | [address] | [place] [address] | [phone] | + + + + + POC [...] | | | POC | performed at [facility];[address] | | LABORATORY | | | | [address];[place], [place] | | | | | | [address] | | | | + + + + + + + + | Specimen | + + | | + + + + + + + | Performing | Address | City/State/Zipcode | Phone Number | | Organization | | | | + + + + + | [facility] | [address] | [place] [address] | [phone] | + + + + + POC [...] | | | POC | performed at [facility];[address] | | LABORATORY | | | | [address];[place], [place] | | | | | | [address] | | | | + + + + + + + + | Specimen | + + | | + + + + + + + | Performing | Address | City/State/Zipcode | Phone Number | | Organization | | | | + + + + + | [facility] | [address] | [place] [address] | [phone] | + + + + + POC Glucose (04/19/2019 8:13 AM PST) + + + + + + | Component | Value | Ref Range | Performed | Pathologist | | | | | At | Signature | + + + + + + | Glucose, | 176 (H)Comment: Testing | 65 - 99 mg/dL | [facility] | | | POC | performed at [facility];[address] | | LABORATORY | | | | [address];[place] | | | | | | [address] | | | | + + + + + + + + | Specimen | + + | | + + + + + + + | Performing | Address | City/State/Zipcode | Phone Number | | Organization | | | | + + + + + | [facility] | [address] | [place] [address] | [phone] | + + + + + Basic [...] 8.0 (L) | 8.5 - 10.5 | [facility] | | | | | mg/dL | LABORATORY | | + + + + + + | Estimated | >60Comment: GFR <60: | >60 | [facility] | | | GFR | [...] | | | | | | MDRD IDND traceable | | | | | | equation.Testing | | | | | | performed at [facility], [address] | | | | | | [facility], | | | | | | [place] [address] | | | | + + + + + + + + | Specimen | + + | Blood | + + + + + + + | Performing | Address | City/State/Zipcode | Phone Number | | Organization | | | | + + + + + | [facility] | [address] | [place] [address] | [phone] | + + + + + CBC [...] W | | | | | | [facility], | | | | | | [place] [address] | | | | | |MICRO | | | | | |NORMAL PLT MORPH | | | | | |Testing performed at [facility], [address] [facility], [place] [address] | | | | | | | | | | + + +---- + + + + + | Specimen | + + | Blood | + + + + + + + | Performing | Address | City/State/Zipcode | Phone Number | | Organization | | | | + + + + + | [facility] | [address] | [place] [address] | [phone] | + + + + + POC [...] | | | POC | performed at [facility];[address] | | LABORATORY | | | | [address];[place], [place] | | | | | | [address] | | | | + + + + + + + + | Specimen | + + | | + + + + + + + | Performing | Address | City/State/Zipcode | Phone Number | | Organization | | | | + + + + + | [facility] | [address] | [place] [address] | [phone] | + + + + + POC Glucose (04/18/2019 9:02 PM PST) + + + + + + | Component | Value | Ref Range | Performed | Pathologist | | | | | At | Signature | + + + + + + | Glucose, | 295 (H)Comment: Testing | 65 - 99 mg/dL | [facility] | | | POC | performed at [facility];[address] | | LABORATORY | | | | [address];[place] | | | | | | [address] | | | | + + + + + + + + | Specimen | + + | | + + + + + + + | Performing | Address | City/State/Zipcode | Phone Number | | Organization | | | | + + + + + | [facility] | [address] | [place] [address] | [phone] | + + + + + POC Glucose (04/18/2019 8:01 PM PST) + + + + + + | Component | Value | Ref Range | Performed | Pathologist | | | | | At | Signature | + + + + + + | Glucose, | 245 (H)Comment: Testing | 65 - 99 mg/dL | [facility] | | | POC | performed at [facility];[address] | | LABORATORY | | | | [address];[place] | | | | | | [address] | | | | + + + + + + + + | Specimen | + + | | + + + + + + + | Performing | Address | City/State/Zipcode | Phone Number | | Organization | | | | + + + + + | [facility] | [address] | [place] [address] | [phone] | + + + + + POC [...] | | | POC | performed at [facility];[address] | | LABORATORY | | | | [address];[place], [place] | | | | | | [address] | | | | + + + + + + + + | Specimen | + + | | + + + + + + + | Performing | Address | City/State/Zipcode | Phone Number | | Organization | | | | + + + + + | [facility] | [address] | [place] [address] | [phone] | + + + + + POC [...] | | | POC | performed at [facility];[address] | | LABORATORY | | | | [address];[place], [place] | | | | | | [address] | | | | + + + + + + + + | Specimen | + + | | + + + + + + + | Performing | Address | City/State/Zipcode | Phone Number | | Organization | | | | + + + + + | [facility] | [address] | [place] [address] | [phone] | + + + + + NM [...] | | | POC | performed at [facility];[address] | | LABORATORY | | | | [address];[place] | | | | | | [address] | | | | + + + + + + + + | Specimen | + + | | + + + + + + + | Performing | Address | City/State/Zipcode | Phone Number | | Organization | | | | + + + + + | [facility] | [address] | [place] [address] | [phone] | + + + + + Basic [...] | | | | | performed at [facility];[address] | | | | | | [facility];[place], [place] | | | | | | [address] | | | | + + + + + + + + | Specimen | + + | Blood | + + + + + + + | Performing | Address | City/State/Zipcode | Phone Number | | Organization | | | | + + + + + | [facility] | [address] | [place] [address] | [phone] | + + + + + CBC [...] | | | Estimate | performed at [facility];[address] | | LABORATORY | | | | [address];[place] | | | | | | [address] | | | | + + + + + + + + | Specimen | + + | Blood | + + + + + + + | Performing | Address | City/State/Zipcode | Phone Number | | Organization | | | | + + + + + | [facility] | [address] | [place] [address] | [phone] | + + + + + POC [...] | | | POC | performed at [facility];[address] | | LABORATORY | | | | [address];[place] | | | | | | [address] | | | | + + + + + + + + | Specimen | + + | | + + + + + + + | Performing | Address | City/State/Zipcode | Phone Number | | Organization | | | | + + + + + | [facility] | [address] | [place] [address] | [phone] | + + + + + POC [...] | | | POC | performed at [facility];[address] | | LABORATORY | | | | [address];[place], [place] | | | | | | [address] | | | | + + + + + + + + | Specimen | + + | | + + + + + + + | Performing | Address | City/State/Zipcode | Phone Number | | Organization | | | | + + + + + | [facility] | [address] | [place] [address] | [phone] | + + + + + Vancomycin, [...] | | | | | performed at [facility];[employer] | | | | | | [address];[place], [place] | | | | | | [address] | | | | + + + + + + + + | Specimen | + + | Blood | + + + + + + + | Performing | Address | City/State/Zipcode | Phone Number | | Organization | | | | + + + + + | [facility] | [address] | [place] [address] | [phone] | + + + + + POC Glucose (04/17/2019 12:05 PM PST) + + + + + + | Component | Value | Ref Range | Performed | Pathologist | | | | | At | Signature | + + + + + + | Glucose, | 200 (H)Comment: Testing | 65 - 99 mg/dL | [facility] | | | POC | performed at [facility];[address] | | LABORATORY | | | | [address];[place] | | | | | | [address] | | | | + + + + + + + + | Specimen | + + | | + + + + + + + | Performing | Address | City/State/Zipcode | Phone Number | | Organization | | | | + + + + + | [facility] | [address] | [place] [address] | [phone] | + + + + + POC Glucose (04/17/2019 10:11 AM PST) + + + + + + | Component | Value | Ref Range | Performed | Pathologist | | | | | At | Signature | + + + + + + | Glucose, | 138 (H)Comment: Testing | 65 - 99 mg/dL | [facility] | | | POC | performed at [facility];[address] | | LABORATORY | | | | [address];[place] | | | | | | [address] | | | | + + + + + + + + | Specimen | + + | | + + + + + + + | Performing | Address | City/State/Zipcode | Phone Number | | Organization | | | | + + + + + | [facility] | [address] | [place] [address] | [phone] | + + + + + POC [...] | | | POC | performed at [facility];[address] | | LABORATORY | | | | [address];[place], [place] | | | | | | [address] | | | | + + + + + + + + | Specimen | + + | | + + + + + + + | Performing | Address | City/State/Zipcode | Phone Number | | Organization | | | | + + + + + | [facility] | [address] | [place] [address] | [phone] | + + + + + Basic [...] | >60Comment: GFR <60: | >60 | [facility] | | | GFR | [...] | | | | | | MDRD IDND traceable | | | | | | equation.Testing | | | | | | performed at [facility], [address] | | | | | | [facility], | | | | | | [place] [address] | | | | + + + + + + + + | Specimen | + + | Blood | + + + + + + + | Performing | Address | City/State/Zipcode | Phone Number | | Organization | | | | + + + + + | [facility] | [address] | [place] [address] | [phone] | + + + + + CBC [...] [address], | | | | | | [place] [address] | | | | | |MICRO | | | | | |NORMAL PLT MORPH | | | | | |Testing performed at [facility], [address] [facility], [place] [address] | | | | | | | | | | + + +---- + + + + + | Specimen | + + | Blood | + + + + + + + | Performing | Address | City/State/Zipcode | Phone Number | | Organization | | | | + + + + + | [facility] | [address] [facility] | [place] [address] | [phone] | + + + + + POC Glucose (04/16/2019 8:57 PM PST) + + + + + + | Component | Value | Ref Range | Performed | Pathologist | | | | | At | Signature | + + + + + + | Glucose, | 96Comment: Testing | 65 - 99 mg/dL | [facility] | | | POC | performed at [facility];[address] | | LABORATORY | | | | [address];[place], [place] | | | | | | [address] | | | | + + + + + + + + | Specimen | + + | | + + + + + + + | Performing | Address | City/State/Zipcode | Phone Number | | Organization | | | | + + + + + | [facility] | [address] | [place] [address] | [phone] | + + + + + POC [...] | | | POC | performed at [facility] [facility];[address] | | LABORATORY | | | [address];[place] | | | | | | [address] | | | | + + + + + + + + | Specimen | + + | | + + + + + + + | Performing | Address | City/State/Zipcode | Phone Number | | Organization | | | | + + + + + | [facility] | [address] | [place] [address] | [phone] | + + + + + POC Glucose (04/16/2019 1:15 PM PST) + + + + + + | Component | Value | Ref Range | Performed | Pathologist | | | | | At | Signature | + + + + + + | Glucose, | 106 (H)Comment: Testing | 65 - 99 mg/dL | [facility] | | | POC | performed at [facility];[address] | | LABORATORY | | | | [address];[place] | | | | | | [address] | | | | + + + + + + + + | Specimen | + + | | + + + + + + + | Performing | Address | City/State/Zipcode | Phone Number | | Organization | | | | + + + + + | [facility] | [address] | [place] [address] | [phone] | + + + + + POC [...] | | | POC | performed at [facility];[address] | | LABORATORY | | | | [address];[place] | | | | | | [address] | | | | + + + + + + + + | Specimen | + + | | + + + + + + + | Performing | Address | City/State/Zipcode | Phone Number | | Organization | | | | + + + + + | [facility] | [address] | [place] [address] | [phone] | + + + + + CBC [...] | | | | | performed at [facility], [address] | | | | | | [address], | | | | | | [place] [address] | | | | | |MICRO | | | | | |NORMAL PLT MORPH | | | | | |Testing performed at [facility], [address] [place] [address] | | | | | | | | | | + + +---- + + + + + | Specimen | + + | Blood | + + + + + + + | Performing | Address | City/State/Zipcode | Phone Number | | Organization | | | | + + + + + | [facility] | [address] [facility] | [place] [address] | [phone] | + + + + + Basic [...] | | | | | performed at [facility], [address] | | | | | | [place], | | | | | | [place] [address] | | | | + + + + + + + + | Specimen | + + | Blood | + + + + + + + | Performing | Address | City/State/Zipcode | Phone Number | | Organization | | | | + + + + + | [facility] | [address] | [place] [address] | [phone] | + + + + + POC [...] | | | POC | performed at [facility];[address] | | LABORATORY | | | | [address];[place] | | | | | | [address] | | | | + + + + + + + + | Specimen | + + | | + + + + + + + | Performing | Address | City/State/Zipcode | Phone Number | | Organization | | | | + + + + + | [facility] | [address] | [place] [address] | [phone] | + + + + + POC Glucose (04/15/2019 4:51 PM PST) + + + + + + | Component | Value | Ref Range | Performed | Pathologist | | | | | At | Signature | + + + + + + | Glucose, | 239 (H)Comment: Testing | 65 - 99 mg/dL | [facility] | | | POC | performed at [facility];[address] | | LABORATORY | | | | [address];[place] | | | | | | [address] | | | | + + + + + + + + | Specimen | + + | | + + + + + + + | Performing | Address | City/State/Zipcode | Phone Number | | Organization | | | | + + + + + | [facility] | [address] | [place] [address] | [phone] | + + + + + POC Glucose (04/15/2019 1:19 PM PST) + + + + + + | Component | Value | Ref Range | Performed | Pathologist | | | | | At | Signature | + + + + + + | Glucose, | 227 (H)Comment: Testing | 65 - 99 mg/dL | [facility] | | | POC | performed at [facility];[address] | | LABORATORY | | | | [address];[place] | | | | | | [address] | | | | + + + + + + + + | Specimen | + + | | + + + + + + + | Performing | Address | City/State/Zipcode | Phone Number | | Organization | | | | + + + + + | [facility] | [address] | [place] [address] | [phone] | + + + + + Type [...] + + + | BB BAND | [id number] | | [facility] | | | | | | LABORATORY | | + + + + + + | UNIT # | [id number] | | [facility] | | | | [...] + + + | UNIT # | [id number] | | [facility] | | | | [...] + + + | UNIT # | [id number] | | [facility] | | | | [...] | | | RESULT | performed at [facility];[address] | | LABORATORY | | | | [address];[place], [place] | | | | | | [address] | | | | + + + + + + + + | Specimen | + + | Blood | + + + + + + + | Performing | Address | City/State/Zipcode | Phone Number | | Organization | | | | + + + + + | [facility] | [address] | [place] [address] | [phone] | + + + + + Red [...] | ORDER RECEIVED IN BLOOD | | [facility] | | | COMMENT | BANK. | | LABORATORY | | + + + + + + | BLOOD BANK | Testing performed at | | [facility] | | | COMMENT | [facility];[address] | | LABORATORY | | | | [address];[place] [address] | | | | + + + + + + + + | Specimen | + + | | + + + + + + + | Performing | Address | City/State/Zipcode | Phone Number | | Organization | | | | + + + + + | [facility] | [address] | [place] [address] | [phone] | + + + + + POC Glucose (04/15/2019 9:11 AM PST) + + + + + + | Component | Value | Ref Range | Performed | Pathologist | | | | | At | Signature | + + + + + + | Glucose, | 165 (H)Comment: Testing | 65 - 99 mg/dL | [facility] | | | POC | performed at [facility];[address] | | LABORATORY | | | | [address];[place] | | | | | | [address] | | | | + + + + + + + + | Specimen | + + | | + + + + + + + | Performing | Address | City/State/Zipcode | Phone Number | | Organization | | | | + + + + + | [facility] | [address] | [place] [address] | [phone] | + + + + + Vancomycin, [...] | | | | | performed at [facility];[employer] | | | | | | [address];[place], [place] | | | | | | [address] | | | | + + + + + + + + | Specimen | + + | Blood | + + + + + + + | Performing | Address | City/State/Zipcode | Phone Number | | Organization | | | | + + + + + | [facility] | [address] | [place] [address] | [phone] | + + + + + CBC [...] | | | Estimate | performed at [facility];[address] | | LABORATORY | | | | [address];[place] | | | | | | [address] | | | | + + + + + + + + | Specimen | + + | Blood | + + + + + + + | Performing | Address | City/State/Zipcode | Phone Number | | Organization | | | | + + + + + | [facility] | [address] | [place] [address] | [phone] | + + + + + Basic [...] | | | | | performed at [facility];[address] | | | | | | [facility];[place], [place] | | | | | | [address] | | | | + + + + + + + + | Specimen | + + | Blood | + + + + + + + | Performing | Address | City/State/Zipcode | Phone Number | | Organization | | | | + + + + + | [facility] | [address] | [place] [address] | [phone] | + + + + + POC Glucose (04/14/2019 8:15 PM PST) + + + + + + | Component | Value | Ref Range | Performed | Pathologist | | | | | At | Signature | + + + + + + | Glucose, | 159 (H)Comment: Testing | 65 - 99 mg/dL | [facility] | | | POC | performed at [facility];[address] | | LABORATORY | | | | [address];[place] | | | | | | [address] | | | | + + + + + + + + | Specimen | + + | | + + + + + + + | Performing | Address | City/State/Zipcode | Phone Number | | Organization | | | | + + + + + | [facility] | [address] | [place] [address] | [phone] | + + + + + POC [...] | | | POC | performed at [facility];[address] | | LABORATORY | | | | [address];[place], [place] | | | | | | [address] | | | | + + + + + + + + | Specimen | + + | | + + + + + + + | Performing | Address | City/State/Zipcode | Phone Number | | Organization | | | | + + + + + | [facility] | [address] | [place] [address] | [phone] | + + + + + POC Glucose (04/14/2019 11:43 AM PST) + + + + + + | Component | Value | Ref Range | Performed | Pathologist | | | | | At | Signature | + + + + + + | Glucose, | 153 (H)Comment: Testing | 65 - 99 mg/dL | [facility] | | | POC | performed at [facility];[address] | | LABORATORY | | | | [address];[place] | | | | | | [address] | | | | + + + + + + + + | Specimen | + + | | + + + + + + + | Performing | Address | City/State/Zipcode | Phone Number | | Organization | | | | + + + + + | [facility] | [address] | [place] [address] | [phone] | + + + + + ECHO [...] | | | POC | performed at [facility];[address] | | LABORATORY | | | | [address];[place] | | | | | | [address] | | | | + + + + + + + + | Specimen | + + | | + + + + + + + | Performing | Address | City/State/Zipcode | Phone Number | | Organization | | | | + + + + + | [facility] | [address] | [place] [address] | [phone] | + + + + + B [...] | | LABORATORY | | | | [facility];[address];[place] [address] | | | | + + + + + + + + | Specimen | + + | | + + + + + + + | Performing | Address | City/State/Zipcode | Phone Number | | Organization | | | | + + + + + | [facility] | [address] | [place] [address] | [phone] | + + + + + CBC [...] | | | Estimate | performed at [facility];[address] | | LABORATORY | | | | [address];[place] | | | | | | [address] | | | | + + + + + + + + | Specimen | + + | | + + + + + + + | Performing | Address | City/State/Zipcode | Phone Number | | Organization | | | | + + + + + | [facility] | [address] | [place] [address] | [phone] | + + + + + Troponin [...] at | | | | | | [facility] | | | | | | [facility];[place] [address] | | | | + + + + + + + + | Specimen | + + | Blood | + + + + + + + | Performing | Address | City/State/Zipcode | Phone Number | | Organization | | | | + + + + + | [facility] | [address] | [place] [address] | [phone] | + + + + + Basic [...] | >60Comment: GFR <60: | >60 | [facility] | | | GFR | [...] | | | | | | MDRD [facility] traceable | | | | | | equation.Testing | | | | | | performed at [facility];[employer] | | | | | | [facility];[place], [place] | | | | | | [address] | | | | + + + + + + + + | Specimen | + + | Blood | + + + + + + + | Performing | Address | City/State/Zipcode | Phone Number | | Organization | | | | + + + + + | [facility] | [address] | [place] [address] | [phone] | + + + + + Vancomycin Level (04/14/2019 4:53 AM PST) + + + + + + | Component | Value | Ref Range | Performed | Pathologist | | | | | At | Signature | + + + + + + | Vancomycin | 20.6Comment: Testing | ug/mL | [facility] | | | Random, | performed at [facility];[address] | | LABORATORY | | | Serum | [address];[place] | | | | | | [address] | | | | + + + + + + + + | Specimen | + + | Blood | + + + + + + + | Performing | Address | City/State/Zipcode | Phone Number | | Organization | | | | + + + + + | [facility] | [address] | [place] [address] | [phone] | + + + + + POC Glucose (04/14/2019 1:46 AM PST) + + + + + + | Component | Value | Ref Range | Performed | Pathologist | | | | | At | Signature | + + + + + + | Glucose, | 166 (H)Comment: Testing | 65 - 99 mg/dL | [facility] | | | POC | performed at [facility];[address] | | LABORATORY | | | | [address];[place] | | | | | | [address] | | | | + + + + + + + + | Specimen | + + | | + + + + + + + | Performing | Address | City/State/Zipcode | Phone Number | | Organization | | | | + + + + + | [facility] | [address] | [place] [address] | [phone] | + + + + + Troponin I (04/14/2019 1:19 AM PST) + + + + + + | Component | Value | Ref Range | Performed | Pathologist | | | | | At | Signature | + + + + + + | Troponin I | 0.015Comment: 0.04 | 0.00 - 0.04 | [facility] | | | | ng/mL [...] at | | | | | | [facility];[address];[place] [address] | | | | + + + + + + + + | Specimen | + + | Blood | + + + + + + + | Performing | Address | City/State/Zipcode | Phone Number | | Organization | | | | + + + + + | [facility] | [address] | [place] [address] | [phone] | + + + + + ECG [...] | | | POC | performed at [facility];[address] | | LABORATORY | | | | [address];[place] | | | | | | [address] | | | | + + + + + + + + | Specimen | + + | | + + + + + + + | Performing | Address | City/State/Zipcode | Phone Number | | Organization | | | | + + + + + | [facility] | [address] | [place] [address] | [phone] | + + + + + POC Glucose (04/13/2019 4:19 PM PST) + + + + + + | Component | Value | Ref Range | Performed | Pathologist | | | | | At | Signature | + + + + + + | Glucose, | 109 (H)Comment: Testing | 65 - 99 mg/dL | [facility] | | | POC | performed at [facility];[address] | | LABORATORY | | | | [address];[place] | | | | | | [address] | | | | + + + + + + + + | Specimen | + + | | + + + + + + + | Performing | Address | City/State/Zipcode | Phone Number | | Organization | | | | + + + + + | [facility] | [address] | [place] [address] | [phone] | + + + + + XR [...] catheterization with right leg runoff4. Right SFA PEPPER CUTTER | | | crossing and atherectomy using Bard 14 S crossing catheter SURGEON: | | | Simba Cheng MD MARKETING FORECASTER: None ANESTHESIA: Moderate sedation and local | [...] | | identified and brought to the Plaster Form Maker. The patient was placed supine | | [...] sized to a 4 | | | [place]er sheath. A Omni flush catheter was then [...] inserted over the catheter and the 4 Hong [place]er sheath was | | | removed. A 7 Hong [place]er destination sheath was then inserted over the [...] | | | POC | performed at [facility];[address] | | LABORATORY | | | | [address];[place], [place] | | | | | | [address] | | | | + + + + + + + + | Specimen | + + | | + + + + + + + | Performing | Address | City/State/Zipcode | Phone Number | | Organization | | | | + + + + + | [facility] | [address] | [place] [address] | [phone] | + + + + + POC [...] | | | POC | performed at [facility];[address] | | LABORATORY | | | | [address];[place], [place] | | | | | | [address] | | | | + + + + + + + + | Specimen | + + | | + + + + + + + | Performing | Address | City/State/Zipcode | Phone Number | | Organization | | | | + + + + + | [facility] | [address] | [place] [address] | [phone] | + + + + + Basic [...] | | | | | performed at [facility], [address] | | | | | | [facility], | | | | | | [place] [address] | | | | + + + + + + + + | Specimen | + + | Blood | + + + + + + + | Performing | Address | City/State/Zipcode | Phone Number | | Organization | | | | + + + + + | [facility] | [address] | [place] [address] | [phone] | + + + + + CBC [...] | | | | | performed at [facility], [facility] [address] | | | | | | [facility], | | | | | | [place] [address] | | | | | |MICRO | | | | | |NORMAL PLT MORPH | | | | | |Testing performed at [facility], [facility] [place] [address] | | | | | | | | | | + + +---- + + + + + | Specimen | + + | Blood | + + + + + + + | Performing | Address | City/State/Zipcode | Phone Number | | Organization | | | | + + + + + | [facility] | [address] | [place] [address] | [phone] | + + + + + POC Glucose (04/13/2019 3:30 AM PST) + + + + + + | Component | Value | Ref Range | Performed | Pathologist | | | | | At | Signature | + + + + + + | Glucose, | 147 (H)Comment: Testing | 65 - 99 mg/dL | [facility] | | | POC | performed at [facility];[address] | | LABORATORY | | | | [address];[place], [place] | | | | | | [address] | | | | + + + + + + + + | Specimen | + + | | + + + + + + + | Performing | Address | City/State/Zipcode | Phone Number | | Organization | | | | + + + + + | [facility] | [address] | [place] [address] | [phone] | + + + + + POC [...] | | | POC | performed at [facility];[address] | | LABORATORY | | | | [address];[place], [place] | | | | | | [address] | | | | + + + + + + + + | Specimen | + + | | + + + + + + + | Performing | Address | City/State/Zipcode | Phone Number | | Organization | | | | + + + + + | [facility] | [address] | [place] [address] | [phone] | + + + + + POC Glucose (04/12/2019 4:28 PM PST) + + + + + + | Component | Value | Ref Range | Performed | Pathologist | | | | | At | Signature | + + + + + + | Glucose, | 211 (H)Comment: Testing | 65 - 99 mg/dL | [facility] | | | POC | performed at [facility];[address] | | LABORATORY | | | | [address];[place], [place] | | | | | | [address] | | | | + + + + + + + + | Specimen | + + | | + + + + + + + | Performing | Address | City/State/Zipcode | Phone Number | | Organization | | | | + + + + + | [facility] | [address] | [place] [address] | [phone] | + + + + + POC Glucose (04/12/2019 11:53 AM PST) + + + + + + | Component | Value | Ref Range | Performed | Pathologist | | | | | At | Signature | + + + + + + | Glucose, | 162 (H)Comment: Testing | 65 - 99 mg/dL | [facility] | | | POC | performed at [facility];[address] | | LABORATORY | | | | [address];[place] | | | | | | [address] | | | | + + + + + + + + | Specimen | + + | | + + + + + + + | Performing | Address | City/State/Zipcode | Phone Number | | Organization | | | | + + + + + | [facility] | [address] | [place] [address] | [phone] | + + + + + POC [...] | | | POC | performed at [facility];[address] | | LABORATORY | | | | [address];[place], [place] | | | | | | [address] | | | | + + + + + + + + | Specimen | + + | | + + + + + + + | Performing | Address | City/State/Zipcode | Phone Number | | Organization | | | | + + + + + | [facility] | [address] | [place] [address] | [phone] | + + + + + Basic [...] 8.2 (L) | 8.5 - 10.5 | [facility] | | | | | mg/dL | LABORATORY | | + + + + + + | Estimated | >60Comment: GFR <60: | >60 | [facility] | | | GFR | [...] | | | | | | MDRD IDND traceable | | | | | | equation.Testing | | | | | | performed at [facility], [address] | | | | | | [facility], | | | | | | [place] [address] | | | | + + + + + + + + | Specimen | + + | Blood | + + + + + + + | Performing | Address | City/State/Zipcode | Phone Number | | Organization | | | | + + + + + | [facility] | [address] | [place] [address] | [phone] | + + + + + CBC [...] | | | | | performed at [facility], [address] | | | | | | [address] [place], | | | | | | [place] [address] | | | | | |MICRO | | | | | |NORMAL PLT MORPH | | | | | |Testing performed at [facility], [address] [facility], [place] [address] | | | | | | | | | | + + +---- + + + + + | Specimen | + + | Blood | + + + + + + + | Performing | Address | City/State/Zipcode | Phone Number | | Organization | | | | + + + + + | [facility] | [address] [facility] | [place] [address] | [phone] | + + + + + POC [...] | | | POC | performed at [facility];[address] | | LABORATORY | | | | [address];[place], [place] | | | | | | [address] | | | | + + + + + + + + | Specimen | + + | | + + + + + + + | Performing | Address | City/State/Zipcode | Phone Number | | Organization | | | | + + + + + | [facility] | [address] | [place] [address] | [phone] | + + + + + POC [...] | | | POC | performed at [facility];[address] | | LABORATORY | | | | [address];[place] | | | | | | [address] | | | | + + + + + + + + | Specimen | + + | | + + + + + + + | Performing | Address | City/State/Zipcode | Phone Number | | Organization | | | | + + + + + | [facility] | [address] | [place] [address] | [phone] | + + + + + POC Glucose (04/11/2019 3:22 PM PST) + + + + + + | Component | Value | Ref Range | Performed | Pathologist | | | | | At | Signature | + + + + + + | Glucose, | 168 (H)Comment: Testing | 65 - 99 mg/dL | [facility] | | | POC | performed at [facility];[address] | | LABORATORY | | | | [address];[place], [place] | | | | | | [address] | | | | + + + + + + + + | Specimen | + + | | + + + + + + + | Performing | Address | City/State/Zipcode | Phone Number | | Organization | | | | + + + + + | [facility] | [address] | [place] [address] | [phone] | + + + + + IR [...] x 150 mm | | | angioplasty [id number]. Left SFA stenting using 7 x 120 mm | | | self-expanding stent SURGEON: Simba Cheng MD MARKETING FORECASTER: None ANESTHESIA: | | | Moderate sedation [...] | | identified and brought to the Plaster Form Maker. The patient was placed supine | | [...] sized to a 4 | | | [place]er sheath. A Omni flush catheter was then [...] inserted over the catheter and the 4 [place]er sheath was | | | removed. A 7 [place]er destination sheath was then inserted over the [...] using a | | | Glidewire and Gallant catheter. A 0.009 wire was then passed [...] crossed using a | | |Glidewire and Gallant catheter. A 0.009 wire was then passed [...] | | | POC | performed at [facility];[address] | [address] | | | | [address];[place], [place] | | | | | | [address] | | | | + + + + + + + + | Specimen | + + | | + + + + + + + | Performing | Address | City/State/Zipcode | Phone Number | | Organization | | | | + + + + + | [facility] | [address] | [place] [address] | [phone] | + + + + + B Type Natriuretic Peptide (04/11/2019 5:48 AM PST) + + + + + + | Component | Value | Ref Range | Performed | Pathologist | | | | | At | Signature | + + + + + + | BNP | 220.45 (H)Comment: | 0 - 100 pg/mL | [facility] | | | | Testing performed at | | LABORATORY | | | | [facility];[address] | | | | | | [address];[place] [address] | | | | + + + + + + + + | Specimen | + + | Blood | + + + + + + + | Performing | Address | City/State/Zipcode | Phone Number | | Organization | | | | + + + + + | [facility] | [address] | [place] [address] | [phone] | + + + + + Basic [...] | | | | | performed at [facility], [address] | | | | | | [facility] [place], | | | | | | [place] [address] | | | | + + + + + + + + | Specimen | + + | Blood | + + + + + + + | Performing | Address | City/State/Zipcode | Phone Number | | Organization | | | | + + + + + | [facility] | [address] | [place] [address] | [phone] | + + + + + CBC [...] | | | | | | at [facility], [address] | | | | | | [facility], | | | | | | [place] [address] | | | | | |Testing performed at [facility], [address] [place] [address] | | | | | | | | | | + + +---- + + + + + | Specimen | + + | Blood | + + + + + + + | Performing | Address | City/State/Zipcode | Phone Number | | Organization | | | | + + + + + | [facility] | [address] | [place] [address] | [phone] | + + + + + POC [...] | | | POC | performed at [facility];[address] | | LABORATORY | | | | [address];[place] | | | | | | [address] | | | | + + + + + + + + | Specimen | + + | | + + + + + + + | Performing | Address | City/State/Zipcode | Phone Number | | Organization | | | | + + + + + | [facility] | [address] | [place] [address] | [phone] | + + + + + POC Glucose (04/10/2019 2:33 PM PST) + + + + + + | Component | Value | Ref Range | Performed | Pathologist | | | | | At | Signature | + + + + + + | Glucose, | 176 (H)Comment: Testing | 65 - 99 mg/dL | [facility] | | | POC | performed at [facility];[address] | | LABORATORY | | | | [address];[place] | | | | | | [address] | | | | + + + + + + + + | Specimen | + + | | + + + + + + + | Performing | Address | City/State/Zipcode | Phone Number | | Organization | | | | + + + + + | [facility] | [address] | [place] [address] | [phone] | + + + + + US [...] | | | POC | performed at [facility];[address] | | LABORATORY | | | | [address];[place], [place] | | | | | | [address] | | | | + + + + + + + + | Specimen | + + | | + + + + + + + | Performing | Address | City/State/Zipcode | Phone Number | | Organization | | | | + + + + + | [facility] | [address] | [place] [address] | [phone] | + + + + + CBC [...] [place], | | | | | | [place] [address] | | | | + + + + + + + + | Specimen | + + | Blood | + + + + + + + | Performing | Address | City/State/Zipcode | Phone Number | | Organization | | | | + + + + + | [facility] | [address] [facility] | [place] [address] | [phone] | + + + + + POC [...] | | | POC | performed at [facility];[address] | | LABORATORY | | | | [address];[place], [place] | | | | | | [address] | | | | + + + + + + + + | Specimen | + + | | + + + + + + + | Performing | Address | City/State/Zipcode | Phone Number | | Organization | | | | + + + + + | [facility] | [address] | [place] [address] | [phone] | + + + + + POC Glucose (04/09/2019 5:06 PM PST) + + + + + + | Component | Value | Ref Range | Performed | Pathologist | | | | | At | Signature | + + + + + + | Glucose, | 169 (H)Comment: Testing | 65 - 99 mg/dL | [facility] | | | POC | performed at [facility];[address] | | LABORATORY | | | | [address];[place] | | | | | | [address] | | | | + + + + + + + + | Specimen | + + | | + + + + + + + | Performing | Address | City/State/Zipcode | Phone Number | | Organization | | | | + + + + + | [facility] | [address] | [place] [address] | [phone] | + + + + + POC [...] | | | POC | performed at [facility];[address] | | LABORATORY | | | | [address] | | | | | | [address] | | | | + + + + + + + + | Specimen | + + | | + + + + + + + | Performing | Address | City/State/Zipcode | Phone Number | | Organization | | | | + + + + + | [facility] | [address] | [place] [address] | [phone] | + + + + + XR [...] | 1+ (A)Comment: Testing | NONE | [facility] | | | Urine | performed at [facility], [address] | | LABORATORY | | | | [address] [place], | | | | | | [place] [address] | | | | + + + + + + + + | Specimen | + + | | + + + + + + + | Performing | Address | City/State/Zipcode | Phone Number | | Organization | | | | + + + + + | [facility] | [address] | [place] [address] | [phone] | + + + + + Urinalysis, [...] - 1.030 | [facility] | | | [place], | | | LABORATORY | | | [...] | + + + + + | [facility] | [address] | [place] [address] | [phone] | + + + + + Sedimentation Rate (04/09/2019 6:16 AM PST) + + + + + + | Component | Value | Ref Range | Performed | Pathologist | | | | | At | Signature | + + + + + + | ESR | 91 (H)Comment: Testing | 0 - 20 mm/Hr | [facility] | | | | performed at [facility], [address] | | LABORATORY | | | | [place], | | | | | | [place] [address] | | | | + + + + + + + + | Specimen | + + | Blood | + + + + + + + | Performing | Address | City/State/Zipcode | Phone Number | | Organization | | | | + + + + + | [facility] | [address] | [place] [address] | [phone] | + + + + + CBC [...] [facility] | | | | performed at [facility], [address] | | LABORATORY | | | | [place] [place], | | | | | | [place] [address] | | | | + + + + + + + + | Specimen | + + | Blood | + + + + + + + | Performing | Address | City/State/Zipcode | Phone Number | | Organization | | | | + + + + + | [facility] | [address] | [place] [address] | [phone] | + + + + + Comprehensive [...] | | | | | performed at [facility], [address] | | | | | | [place] [facility], | | | | | | [place] [address] | | | | + + + + + + + + | Specimen | + + | Blood | + + + + + + + | Performing | Address | City/State/Zipcode | Phone Number | | Organization | | | | + + + + + | [facility] | [address] | [place] [address] | [phone] | + + + + + POC [...] | | | POC | performed at [facility];[address] | | LABORATORY | | | | [address];[place], [place] | | | | | | [address] | | | | + + + + + + + + | Specimen | + + | | + + + + + + + | Performing | Address | City/State/Zipcode | Phone Number | | Organization | | | | + + + + + | [facility] | [address] | [place] [address] | [phone] | + + + + + Fecal Hemoglobin (04/08/2019 7:27 PM PST) + + + + + + | Component | Value | Ref Range | Performed | Pathologist | | | | | At | Signature | + + + + + + | FECAL | NEGATIVEComment: Testing | NEG | [facility] | | | OCCULT BLD | performed at [facility];[address] | | LABORATORY | | | | [address];[place] | | | | | | [address] | | | | + + + + + + + + | Specimen | + + | Stool - Stool | | specimen (specimen) | + + + + + + + | Performing | Address | City/State/Zipcode | Phone Number | | Organization | | | | + + + + + | [facility] | [address] | [place] [address] | [phone] | + + + + + POC Glucose (04/08/2019 6:34 PM PST) + + + + + + | Component | Value | Ref Range | Performed | Pathologist | | | | | At | Signature | + + + + + + | Glucose, | 179 (H)Comment: Testing | 65 - 99 mg/dL | [facility] | | | POC | performed at [facility];[address] | | LABORATORY | | | | [address] | | | | | | [address] | | | | + + + + + + + + | Specimen | + + | | + + + + + + + | Performing | Address | City/State/Zipcode | Phone Number | | Organization | | | | + + + + + | [facility] | [address] | [place] [address] | [phone] | + + + + + XR [...] Testing | 65 - 99 mg/dL | [facility] | | | POC | performed at [facility];[address] | | LABORATORY | | | | [address];[place] | | | | | | [address] | | | | + + + + + + + + | Specimen | + + | | + + + + + + + | Performing | Address | City/State/Zipcode | Phone Number | | Organization | | | | + + + + + | [facility] | [address] | [place] [address] | [phone] | + + + + + XR [...] | | | POC | performed at [facility];[address] | | LABORATORY | | | | [address];[place], [place] | | | | | | [address] | | | | + + + + + + + + | Specimen | + + | | + + + + + + + | Performing | Address | City/State/Zipcode | Phone Number | | Organization | | | | + + + + + | [facility] | [address] | [place] [address] | [phone] | + + + + + B [...] | | LABORATORY | | | | [facility];[address] | | | | | | [place] [address] | | | | + + + + + + + + | Specimen | + + | Blood | + + + + + + + | Performing | Address | City/State/Zipcode | Phone Number | | Organization | | | | + + + + + | [facility] | [address] | [place] [address] | [phone] | + + + + + CBC [...] [facility] | | | | performed at [facility], [address] | | LABORATORY | | | | [facility], | | | | | | [place] [address] | | | | + + + + + + + + | Specimen | + + | Blood | + + + + + + + | Performing | Address | City/State/Zipcode | Phone Number | | Organization | | | | + + + + + | [facility] | [address] | [place] [address] | [phone] | + + + + + Comprehensive [...] | | | | | | [facility] traceable | | | | | | equation.Testing | | | | | | performed at [facility], [address] | | | | | | [facility], | | | | | | [place] [address] | | | | + + + + + + + + | Specimen | + + | Blood | + + + + + + + | Performing | Address | City/State/Zipcode | Phone Number | | Organization | | | | + + + + + | [facility] | [address] | [place] [address] | [phone] | + + + + + POC [...] | | | POC | performed at [facility];[address] | | LABORATORY | | | | [address];[place], [place] | | | | | | [address] | | | | + + + + + + + + | Specimen | + + | | + + + + + + + | Performing | Address | City/State/Zipcode | Phone Number | | Organization | | | | + + + + + | [facility] | [address] | [place] [address] | [phone] | + + + + + POC [...] | | | POC | performed at [facility];[address] | | LABORATORY | | | | [address];[place] | | | | | | [address] | | | | + + + + + + + + | Specimen | + + | | + + + + + + + | Performing | Address | City/State/Zipcode | Phone Number | | Organization | | | | + + + + + | [facility] | [address] [facility] | [place] [address] | [phone] | + + + + + POC [...] | | | POC | performed at [facility];[address] | | LABORATORY | | | | [address];[place], [place] | | | | | | [address] | | | | + + + + + + + + | Specimen | + + | | + + + + + + + | Performing | Address | City/State/Zipcode | Phone Number | | Organization | | | | + + + + + | [facility] | [address] | [place] [address] | [phone] | + + + + + XR [...] + + | Performing | Address | City/State/[facility] | Phone Number | | [...] | | | POC | performed at [facility];[address] | | LABORATORY | | | | [address];[place], [place] | | | | | | [address] | | | | + + + + + + + + | Specimen | + + | | + + + + + + + | Performing | Address | City/State/Zipcode | Phone Number | | Organization | | | | + + + + + | [facility] | [address] | [place] [address] | [phone] | + + + + + Magnesium [...] | | | | | [place] [address] | | | | + + + + + + + + | Specimen | + + | Blood | + + + + + + + | Performing | Address | City/State/Zipcode | Phone Number | | Organization | | | | + + + + + | [facility] | [address] | [place] [address] | [phone] | + + + + + CBC [...] [facility] | | | | performed at [facility];[address] | | LABORATORY | | | | [address];[place] | | | | | | [address] | | | | + + + + + + + + | Specimen | + + | Blood | + + + + + + + | Performing | Address | City/State/Zipcode | Phone Number | | Organization | | | | + + + + + | [facility] | [address] | [place] [address] | [phone] | + + + + + Comprehensive [...] [place], | | | | | | [place] [address] | | | | + + + + + + + + | Specimen | + + | Blood | + + + + + + + | Performing | Address | City/State/Zipcode | Phone Number | | Organization | | | | + + + + + | [facility] | [address] | [place] [address] | [phone] | + + + + + Iron, Total (04/07/2019 5:02 AM PST) + + + + + + | Component | Value | Ref Range | Performed | Pathologist | | | | | At | Signature | + + + + + + | Iron | 23 (L)Comment: Testing | 45 - 190 ug/dL | [facility] | | | | performed at [facility], [address] | | LABORATORY | | | | [address], | | | | | | [place] [address] | | | | + + + + + + + + | Specimen | + + | Blood | + + + + + + + | Performing | Address | City/State/Zipcode | Phone Number | | Organization | | | | + + + + + | [facility] | [address] | [place] [address] | [phone] | + + + + + POC Glucose (04/06/2019 8:54 PM PST) + + + + + + | Component | Value | Ref Range | Performed | Pathologist | | | | | At | Signature | + + + + + + | Glucose, | 216 (H)Comment: Testing | 65 - 99 mg/dL | [facility] | | | POC | performed at [facility];[address] | | LABORATORY | | | | [address];[place] | | | | | | [address] | | | | + + + + + + + + | Specimen | + + | | + + + + + + + | Performing | Address | City/State/Zipcode | Phone Number | | Organization | | | | + + + + + | [facility] | [address] | [place] [address] | [phone] | + + + + + POC Glucose (04/06/2019 4:29 PM PST) + + + + + + | Component | Value | Ref Range | Performed | Pathologist | | | | | At | Signature | + + + + + + | Glucose, | 173 (H)Comment: Testing | 65 - 99 mg/dL | [facility] | | | POC | performed at [facility];[address] | | LABORATORY | | | | [address];[place], [place] | | | | | | [address] | | | | + + + + + + + + | Specimen | + + | | + + + + + + + | Performing | Address | City/State/Zipcode | Phone Number | | Organization | | | | + + + + + | [facility] | [address] | [place] [address] | [phone] | + + + + + Culture, [...] LABORATORY | | | | Blvd;[place] [address] | | | | + + + + + + | RESULT | 1+NORMAL SKIN CELSA | | [facility] | | | | ISOLATED | | LABORATORY | | | | | | | | + + + + + + | RESULT | NO FURTHER WORKUP | | [facility] | | | | | | LABORATORY | | + + + + + + | RESULT | Testing performed at | | [facility] | | | | [facility], [address] | | LABORATORY | | | | [place] | | | | | | [id number]: Testing | | | | | | performed at [facility], [address] | | | | | [address] [place] | | | | | | [address] | | | | + + + + + + + + | Specimen | + + | Body Fluid - Entire | | heel (body | | structure) | + + + + + + + | Performing | Address | City/State/Zipcode | Phone Number | | Organization | | | | + + + + + | [facility] | [address] | [place] [address] | [phone] | + + + + + Culture, [...] | | LABORATORY | | | | Blvd;[place] [address] | | | | + + + [...] Comment: Testing | | | performed at [facility], | | | [address], | | | [place] [address] | +---+ + + + + + + | Performing | Address | City/State/Zipcode | Phone Number | | Organization | | | | + + + + + | [facility] | [address] | [place] [address] | [phone] | + + + + + Ferritin (04/06/2019 2:30 PM PST) + + + + + + | Component | Value | Ref Range | Performed | Pathologist | | | | | At | Signature | + + + + + + | Ferritin | 62Comment: Testing | 11 - 450 ng/mL | [facility] | | | | performed at [facility], [address] | | LABORATORY | | | | [address], | | | | | | [place] [address] | | | | + + + + + + + + | Specimen | + + | Blood | + + + + + + + | Performing | Address | City/State/Zipcode | Phone Number | | Organization | | | | + + + + + | [facility] | [address] | [place] [address] | [phone] | + + + + + Vitamin [...] [facility] | | | | performed at [facility], [address] | | LABORATORY | | | | [address] [place], | | | | | | [place] [address] | | | | + + + + + + + + | Specimen | + + | Blood | + + + + + + + | Performing | Address | City/State/Zipcode | Phone Number | | Organization | | | | + + + + + | [facility] | [address] | [place] [address] | [phone] | + + + + + Troponin I (04/06/2019 2:30 PM PST) + + + + + + | Component | Value | Ref Range | Performed | Pathologist | | | | | At | Signature | + + + + + + | Troponin I | 0.161 (H)Comment: 0.04 | 0.00 - 0.04 | [facility] | | | | ng/mL [...] at | | | | | | [facility];[address] | | | | | | [place] [address] | | | | + + + + + + + + | Specimen | + + | Blood | + + + + + + + | Performing | Address | City/State/Zipcode | Phone Number | | Organization | | | | + + + + + | [facility] | [address] | [place] [address] | [phone] | + + + + + POC [...] | | | POC | performed at [facility];[address] | | LABORATORY | | | | [address];[place] | | | | | | [address] | | | | + + + + + + + + | Specimen | + + | | + + + + + + + | Performing | Address | City/State/Zipcode | Phone Number | | Organization | | | | + + + + + | [facility] | [address] | [place] [address] | [phone] | + + + + + VAS [...] Testing | 65 - 99 mg/dL | [facility] | | | POC | performed at [facility];[address] | | LABORATORY | | | | [address];[place] | | | | | | [address] | | | | + + + + + + + + | Specimen | + + | | + + + + + + + | Performing | Address | City/State/Zipcode | Phone Number | | Organization | | | | + + + + + | [facility] | [address] | [place] [address] | [phone] | + + + + + Troponin I (04/06/2019 8:31 AM PST) + + + + + + | Component | Value | Ref Range | Performed | Pathologist | | | | | At | Signature | + + + + + + | Troponin I | 0.19 (H)Comment: 0.04 | 0.00 - 0.04 | [facility] | | | | ng/mL [...] at | | | | | | [facility];[address] [facility] | | | | | | [facility];[place] [address] | | | | + + + + + + + + | Specimen | + + | Blood | + + + + + + + | Performing | Address | City/State/Zipcode | Phone Number | | Organization | | | | + + + + + | [facility] | [address] | [place] [address] | [phone] | + + + + + XR [...] LABORATORY | | | | Blvd;[place] [address] | | | | + + + + + + | RESULT | NO GROWTH 6 DAYS | | [facility] | | | | | | LABORATORY | | + + + + + + | RESULT | Testing performed at | | [facility] | | | | [facility], [address] [facility] | | LABORATORY | | | | [place], [place], [place] | | | | | | [id number]: Testing | | | | | | performed at [facility], [address] | | | | | | [facility], [place], [place] | | | | | | [address] | | | | + + + + + + + + | Specimen | + + | Blood - Peripheral | | blood specimen | | (specimen) | + + + + + + + | Performing | Address | City/State/Zipcode | Phone Number | | Organization | | | | + + + + + | [facility] | [address] | [place] [address] | [phone] | + + + + + Culture, [...] LABORATORY | | | | Blvd;[place] [address] | | | | + + + + + + | RESULT | NO GROWTH 6 DAYS | | [facility] | | | | | | LABORATORY | | + + + + + + | RESULT | Testing performed at | | [facility] | | | | [facility], [address] | | LABORATORY | | | | [place], [place] | | | | | | [id number]: Testing | | | | | | performed at [facility], [address] | | | | | | [address] [place], [place] | | | | | | [address] | | | | + + + + + + + + | Specimen | + + | Blood - Peripheral | | blood specimen | | (specimen) | + + + + + + + | Performing | Address | City/State/Zipcode | Phone Number | | Organization | | | | + + + + + | [facility] | [address] | [place] [address] | [phone] | + + + + + B [...] | | LABORATORY | | | | [facility];[address] | | | | | | [address];[place] [address] | | | | + + + + + + + + | Specimen | + + | | + + + + + + + | Performing | Address | City/State/Zipcode | Phone Number | | Organization | | | | + + + + + | [facility] | [address] | [place] [address] | [phone] | + + + + + Lipid [...] | | | Calculated | performed at [facility], [address] | | LABORATORY | | | | [address], | | | | | | [place] [address] | | | | + + + + + + + + | Specimen | + + | Blood | + + + + + + + | Performing | Address | City/State/Zipcode | Phone Number | | Organization | | | | + + + + + | [facility] | [address] | [place] [address] | [phone] | + + + + + Hemoglobin A1C (04/06/2019 2:48 AM PST) + + + + + + | Component | Value | Ref Range | Performed | Pathologist | | | | | At | Signature | + + + + + + | Hemoglobin | 7.8 (H)Comment: HbA1c | 4.0 - 6.0 % | [facility] | | | A1c | [...] | 177 (H)Comment: | <154 mg/dL | [facility] | | | Average | Estimated Average | | LABORATORY | | | Glucose | Glucose calculated from | | | | | | hemoglobin A1c by use of | | | | | | the ADArecommended | | | | | | formula.Testing | | | | | | performed at [facility], [address] | | | | | [address], | | | | | | [place] [address] | | | | + + + + + + + + | Specimen | + + | Blood | + + + + + + + | Performing | Address | City/State/Zipcode | Phone Number | | Organization | | | | + + + + + | [facility] | [address] | [place] [address] | [phone] | + + + + + Magnesium (04/06/2019 2:48 AM PST) + + + + + + | Component | Value | Ref Range | Performed | Pathologist | | | | | At | Signature | + + + + + + | Magnesium | 1.4 (L)Comment: Testing | 1.7 - 2.4 mg/dL | [facility] | | | | performed at [facility], [address] | | LABORATORY | | | | [address], | | | | | | [place] [address] | | | | + + + + + + + + | Specimen | + + | Blood | + + + + + + + | Performing | Address | City/State/Zipcode | Phone Number | | Organization | | | | + + + + + | [facility] | [address] | [place] [address] | [phone] | + + + + + Comprehensive [...] | | | | | performed at [facility], [address] | | | | | [address], | | | | | | [place] [address] | | | | + + + + + + + + | Specimen | + + | Blood | + + + + + + + | Performing | Address | City/State/Zipcode | Phone Number | | Organization | | | | + + + + + | [facility] | [address] | [place] [address] | [phone] | + + + + + CBC [...] | | | | | | at [facility];[address] | | | [address];[place] [address] | | | | | |NORMAL [address]T [place] | | | | | |Testing performed at [facility];[address] [facility];[place] [address] | | | | | | | | | | + + + + + + + + | Specimen | + + | Blood | + + + + + + + | Performing | Address | City/State/Zipcode | Phone Number | | Organization | | | | + + + + + | [facility] | [address] | [place] [address] | [phone] | + + + + + Protime INR (04/06/2019 2:48 AM PST) + + + + + + | Component | Value | Ref Range | Performed | Pathologist | | | | | At | Signature | + + + + + + | INR | 1.2Comment: REFERENCE | | [facility] | | | | RANGE:0.9 [...] | | | | | performed at [facility];[address] | | | | | | [address];[place] | | | | | | [address] | | | | + + + + + + + + | Specimen | + + | Blood | + + + + + + + | Performing | Address | City/State/Zipcode | Phone Number | | Organization | | | | + + + + + | [facility] | [address] | [place] [address] | [phone] | + + + + + PTT (04/06/2019 2:48 AM PST) + + + + + + | Component | Value | Ref Range | Performed | Pathologist | | | | | At | Signature | + + + + + + | PTT | 34 (H)Comment: Testing | 23 - 32 seconds | [facility] | | | | performed at [facility];[address] | | LABORATORY | | | | [address];[place] | | | | | | [address] | | | | + + + + + + + + | Specimen | + + | Blood | + + + + + + + | Performing | Address | City/State/Zipcode | Phone Number | | Organization | | | | + + + + + | [facility] | [address] | [place] [address] | [phone] | + + + + + Troponin I (04/06/2019 2:48 AM PST) + + + + + + | Component | Value | Ref Range | Performed | Pathologist | | | | | At | Signature | + + + + + + | Troponin I | 0.198 (H)Comment: 0.04 | 0.00 - 0.04 | [facility] | | | | ng/mL [...] at | | | | | | [facility];[address] [facility] | | | | | | Blvd;[place] [address] | | | | + + + + + + + + | Specimen | + + | Blood | + + + + + + + | Performing | Address | City/State/Zipcode | Phone Number | | Organization | | | | + + + + + | [facility] | [address] | [place] [address] | [phone] | + + + + + documented [...]
--- OUTSIDE RECORDS SUMMARY | ~2019-08-23 | XMS | Encounter Summary ---
Demographics + + + | Address | [address] | | | [place] [address] | + + + | Home Phone [...] + | Jessica Shepard | ECON | [address] | | | | | [place] | | | | | [address] | | + + + + + | Bel Solis | ECON | Unknown | | + + + + + Care Team Providers + +------+ + | Care Route Supervisor Name | Role | Phone | + +------+ + | Jamar Manuel MD | PCP | | + +------+ + Encounter Details +--------+ + + + + | Date | Type | Department | Care Team | Description | +--------+ + + + + | 04/10/ | Hospital | [facility] | Aleksander Montiel, | | | 2019 | [facility] | [facility] | MD Nash SMITH | | | | | ULTRASOUND [address] [place], [place] | | | | | [address] | [address] | | | | | [place], [place] | [phone] | | | | | [address] | | | | | | [phone] | | | +--------+ + + + [...]
--- OUTSIDE RECORDS SUMMARY | ~2019-08-23 | XMS | Encounter Summary ---
Demographics + + + | Address | [address] | | | [place] [address] | + + + | Home Phone [...] + | Jessica Shepard | ECON | [phone] | | | | | [place] | | | | | [address] | | + + + + + | Bel Solis | ECON | Unknown | | + + + + + Care Team Providers + +------+ + | Care Nursing Project Coordinator Name | Role | Phone | [...] + + | 05/14/ | Documentati | [facility] | Nimo Westbrook, | Other (*Labs from | 2019 | on | INFECTIOUS DISEASE | Calender Worker Helper | [facility] | | | | [address] | | 05/11/2019 | | | | [facility] [address] | | (CREATININE WITH | | | | [address] | | GFR)) | | | | [phone] | | | +--------+ + + + [...] as of this encounter Progress Nimo Harley, Calender Worker Helper - 05/14/2019 2:47 PM PST*Labs from [facility] (CREATININE WITH GFR) RECEIVED: 05/14/2019 Labs were abstracted into [facility] [employer] [facility] and sent to scan. Kaye CMA Tdocumented [...] | [address] [facility] [facility] | [place], [place] | [phone] | | [facility] | | [address] | | + + + + + [...]
--- OUTSIDE RECORDS SUMMARY | ~2019-08-23 | XMS | Encounter Summary ---
Demographics + + + | Address | [address] | | | [place] [address] | + + + | Home Phone [...] + | Jessica Shepard | ECON | [phone] | | | | | [place] | | | | | [address] | | + + + + + | Bel Solis | ECON | Unknown | | + + + + + Care Team Providers + +------+ + | Care Cover Assembler Name | Role | Phone | [...] + + | 05/23/ | Telephone | [facility] | Nimo Westbrook, | Care Coordination | | 2020 | | INFECTIOUS DISEASE | [employer] | (EOT??); Other (pic | | | | [address] | | d/c) | | | | [place] | | | | | | [address] | | | | | | [phone] | | | +--------+ + + + [...]
--- OUTSIDE RECORDS SUMMARY | ~2019-08-23 | XMS | Encounter Summary ---
Demographics + + + | Address | [address] | | | [place] [address] | + + + | Home Phone [...] + | Jessica Shepard | ECON | [phone] | | | | | [place] | | | | | [address] | | + + + + + | Bel Solis | ECON | Unknown | | + + + + + Care Team Providers + +------+ + | Care Investigations Chief Name | Role | Phone | + +------+ + | Dian Lr NP | PCP | | + +------+ + Encounter Details +--------+ + + + + | Date | Type | Department | Care Team | Description | +--------+ + + + + | 05/14/ | Hospital | [facility] | Conversion | Pain | | 2017 | Encounter | CONVERSION [address]P [address] | Transaction, | | | | | [address] | Provider Unknown | | | | | [place] | [phone] | | | | | [address] | | | | | | [phone] | | | +--------+ + + + [...]
--- OUTSIDE RECORDS SUMMARY | ~2019-08-23 | XMS | Encounter Summary ---
Demographics + + + | Address | [address] | | | [place] [address] | + + + | Home Phone [...] + | Jessica Shepard | ECON | [address] | | | | | [place] | | | | | [address] | | + + + + + | Bel Solis | ECON | Unknown | | + + + + + Care Team Providers + +------+ + | Care Soft Sugar Cutter Name | Role | Phone | [...] + | 11/21/ | Surgery | [facility] | Simone Aceves, | Amputation Right 5th | | 2018 | | MED CTR OR INTRA OP | DPM [address] | Metatarsal | | | | [address] | [place], [place] | | | | | [place], [place] | [address] | | | | | [address] | [phone] | | | | | [phone] | | | +--------+---------+ + + + [...] other anesthesia was used during the case. [facility] lower extremity was then scrubbed, prepped and [...] -PT/OT ordered Code Status: Full Code Disposition: [facility] Discharge Condition: Stable, very deconditioned and weak at baseline Pleasant, no distress RRR, no m/r/g CTA bilaterally Soft, obese, NT Ext WWP, right foot ulcer with deep wound, slight purulent drainage Contact information for after-discharge care Placement Destination [facility] . Specialty: [facility] Facility Contact information: [place] [address] Discharge [...] signed by: Justin Reyna MD, 11/25/2017 13:01 [facility] documented in this encounter Medications at Time [...] might be different f rom the original. [facility] PMG Hospitalist Progress Note Reagan Shepard [...] pantoprazole Mechanical fall -PT/OT ordered Disposition : [facility] as soon as 11/25 Prophylaxis : [...] outlined above. Justin Reyna 11/24/2017 18:[address] [facility] Sang Duff MD - 11/24/2017 1:59 PM PDTWe are evaluating the patient for further medical rehabilitatio n services. He does not qualify per CMS guidelines for full inpatient rehab . I recommend he be transferred to SNF for further skilled therapies once he is cleared acute ly. Justin Rodriguez MD - 11/23/2017 2:24 PM PDT [facility] PMG Hospitalist Progress Note Reagan Shepard [...] outlined above. Justin Reyna 11/23/2017 14:[address] [facility] oSimone mcmullen DPM - 11/23/2017 1:58 PM PDT Foot & Ankle Surgery Progress Note Simone Shepard Age/Gender 72 y.o. male Location [facility] Attending Mil Sandoval MD Hosp Day [...] Value Units Date/Time Culture, Wound, Smear, w/Anaerobe [[id number]] Collected: 11/21/171207 Order Status: Sent Lab Status: In process Updated: 11/21/171249 Specimen: Tissue from Toe, Fifth/Small, Right Narrative: The following orders were created for panel order Culture, Wound, Smear, w/Anaerobe. Procedure Abnormality Status --------- ------ Culture, Wound, Smear[[id number]] In process Culture, Anaerobic[[id number]] In process Please view results for these tests on the individual orders. Culture, Wound, Smear [[id number]] Collected: 11/21/171207 Order Status: Sent Lab Status: In process Updated: 11/21/17 125 Specimen: Tissue from Toe, Fifth/Small, Right Culture, Anaerobic [[id number]] Collected: 11/21/171207 Order Status: Sent Lab Status: [...] Simone Aceves DPM 13:58; 11/23/2017 Irasema Dominguez, Corporate Statistical Financial Analyst - 11/23/2017 9:43 AM PDT PHARMACY [...] directions X Pharmacy list names: [facility] X [employer] insurance reported information X [...] Prior to Admission Sig: Patient taking differently [employer] as: Hydrocodone-acetaminophen 10-325 mg Take one tablet by mouth four times daily as needed fo r pain Patient taking 1 tablet three times daily as a scheduled dose Best possible [employer]ER [employer] medication list after pharmacy review: PT REPORTED [...] performed and electronically signed by Blanquita Bertrand, Emblem Cutter 11/22/2017 8:38 Electronically signed by: Irasema Moyer, Corporate Statistical Financial Analyst 11/23/2017 9:43 each, Justin Ferrell MD - 11/22/2017 5:22 PM PDT [facility] PMG Hospitalist Progress Note Reagan Shepard [...] outlined above. Justin Reyna 11/22/2017 17:[address] [facility] Danielle Claire, Global Coordinator - 11/22/2017 2:13 PM PDTFormatting of this [...] Value Units Date/Time Culture, Wound, Smear, w/Anaerobe [[id number]] Collected: 11/21/17 1208 Order Status: Sent Lab Status: In process Updated: 11/21/17 1250 Specimen: Tissue from Toe, Fifth/Small, Right Narrative: The following orders were created for panel order Culture, Wound, Smear, w/Anaerobe. Procedure Abnormality Status --------- ------ Culture, Wound, Smear[[id number]] Preliminary result Culture, Anaerobic[[id number]] In process Please view results for these tests on the individual orders. Culture, Wound, Smear [[id number]] Collected: 11/21/17 1208 Order Status: Completed Lab Status: Preliminary result Updated: 11/22/17 1021 Specimen: Tissue from Toe, Fifth/Small, Right Culture 2+ Lactose Fermenting Gram Negative Bacilli Comment: Identification and susceptibility to follow. Gram Stain Result 2+ White Blood Cells 1+ Epithelial cells 2+ Gram negative rods Culture, Anaerobic [[id number]] Collected: 11/21/17 1208 Order Status: Sent Lab Status: In process Updated: 11/21/17 1250 Specimen: Tissue from Toe, Fifth/Small, Right Respiratory Virus Panel, NAAT [[id number]] Collected: 11/20/17 1257 Order Status: Completed Lab [...] pneumoniae DNA Not Detected Narrative: Performed at: [address] [place] [address] [id number] Nuisance Wildlife Trapper: Jurgen Costa MD, Phone: [phone] Culture, Wound, Smear [[id number]] (Susceptibility) Collected: 11/20/17 0825 Order Status: Completed [...] Sulfamethoxazole <=20 ug/mL Sensitive Culture, Wound, Smear [[id number]] (Susceptibility) Collected: 11/19/17 2031 Order Status: Completed [...] no longer reported. Culture, Respiratory, Lower, Smear [[id number]] Order Status: Sent Lab Status: No result Specimen: Body Fluid from Sputum, Expectorated Culture, Wound, Smear [[id number]] Order Status: Canceled Lab Status: No result Specimen: Tissue from Leg, Left Culture, Blood [[id number]] (Normal) Collected: 11/19/17 1537 Order Status: Completed Lab Status: Preliminary result Updated: 11/20/17 0351 Specimen: Blood from Peripheral Blood Culture No growth: Monitored continually by instrument for 5 days Culture, Blood [[id number]] (Normal) Collected: 11/19/17 1506 Order Status: Completed Lab Status: Preliminary result Updated: 11/20/17 0321 Specimen: Blood from Peripheral Blood Culture No growth: Monitored continually by instrument for 5 days Culture, Urine [[id number]] Collected: 11/19/17 1416 Order Status: Completed Lab [...] Monitoring Protocol Electronically signed by: Danielle Guillermo, Global Coordinator 11/22/2017 14:13 Associated attestation - Luther Hampton, [...] DPSunshine Shepard Age/Gender 72 y.o. male Location [facility] Attending Mil Sandoval MD Hosp Day [...] Value Units Date/Time Culture, Wound, Smear, w/Anaerobe [[id number]] Collected: 11/21/171207 Order Status: Sent Lab Status: In process Updated: 11/21/17 1250 Specimen: Tissue from Toe, Fifth/Small, Right Narrative: The following orders were created for panel order Culture, Wound, Smear, w/Anaerobe. Procedure Abnormality Status --------- ------ Culture, Wound, Smear[[id number]] In process Culture, Anaerobic[[id number]] In process Please view results for these tests on the individual orders. Culture, Wound, Smear [[id number]] Collected: 11/21/171207 Order Status: Sent Lab Status: In process Updated: 11/21/17 1250 Specimen: Tissue from Toe, Fifth/Small, Right Culture, Anaerobic [[id number]] Collected: 11/21/171207 Order Status: Sent Lab Status: [...] Value Units Date/Time Culture, Wound, Smear, w/Anaerobe [[id number]] Collected: 11/21/171207 Order Status: Sent Lab Status: In process Updated: 11/21/17 125 Specimen: Tissue from Toe, Fifth/Small, Right Narrative: The following orders were created for panel order Culture, Wound, Smear, w/Anaerobe. Procedure Abnormality Status --------- ------ Culture, Wound, Smear[[id number]] In process Culture, Anaerobic[[id number]] In process Please view results for these tests on the individual orders. Culture, Wound, Smear [[id number]] Collected: 11/21/17 120 Order Status: Sent Lab Status: In process Updated: 11/21/17 125 Specimen: Tissue from Toe, Fifth/Small, Right Culture, Anaerobic [[id number]] Collected: 11/21/17 120 Order Status: Sent Lab Status: In process Updated: 11/21/17 1250 Specimen: Tissue from Toe, Fifth/Small, Right Respiratory Virus Panel, NAAT [[id number]] Collected: 11/20/17 1257 Order Status: Sent Lab Status: In process Updated: 11/20/17 1302 Specimen: Tissue from Nasopharynx Culture, Wound, Smear [[id number]] Collected: 11/20/17 0825 Order Status: Completed Lab Status: Preliminary result Updated: 11/21/17 0739 Specimen: Tissue from Foot, Right Culture 1+ Gram Negative Jayesh, NOT Pseudomonas Comment: Identification and susceptibility to follow. 1+ Gram Positive Cocci Comment: Isolating for additional information. Gram Stain Result 1+ White Blood Cells No organisms seen Culture, Wound, Smear [[id number]] (Susceptibility) Collected: 11/19/17 203 Order Status: Completed [...] <=20 ug/mL Sensitive Culture, Respiratory, Lower, Smear [[id number]] Order Status: Sent Lab Status: No result Specimen: Body Fluid from Sputum, Expectorated Culture, Wound, Smear [[id number]] Order Status: Canceled Lab Status: No result Specimen: Tissue from Leg, Left Culture, Blood [[id number]] (Normal) Collected: 11/19/17 1537 Order Status: Completed Lab Status: Preliminary result Updated: 11/20/17 0351 Specimen: Blood from Peripheral Blood Culture No growth: Monitored continually by instrument for 5 days Culture, Blood [[id number]] (Normal) Collected: 11/19/17 1506 Order Status: Completed Lab Status: Preliminary result Updated: 11/20/17 0321 Specimen: Blood from Peripheral Blood Culture No growth: Monitored continually by instrument for 5 days Culture, Urine [[id number]] Collected: 11/19/17 1416 Order Status: Completed Lab [...] Hoff MD - 11/21/2017 11:05 AM PDT [facility] KELLIE GUTIERREZ HOSPITALIST PROGRESS NOTE Patient: Reagan Shepard : 1945: Age: 72 y.o. MedRec: [id number] Admission date: 11/19/2017 Hospital day # : [...] E' Septal Velocity 4.79 cm/s MV Deceleration Lane 336.24 cm/s2 MV Deceleration Time 332.96 msec [...] Value Units Date/Time Respiratory Virus Panel, NAAT [[id number]] Collected: 11/20/17 1257 Order Status: Sent Lab Status: In process Updated: 11/20/17 1302 Specimen: Tissue from Nasopharynx Culture, Wound, Smear [[id number]] Collected: 11/20/17 0825 Order Status: Completed Lab Status: Preliminary result Updated: 11/21/17 0739 Specimen: Tissue from Foot, Right Culture 1+ Gram Negative Jayesh, NOT Pseudomonas Comment: Identification and susceptibility to follow. 1+ Gram Positive Cocci Comment: Isolating for additional information. Gram Stain Result 1+ White Blood Cells No organisms seen Culture, Wound, Smear [[id number]] (Susceptibility) Collected: 11/19/17 203 Order Status: Completed [...] + Sulfamethoxazole <=20 ug/mL Sensitive Culture, Blood [[id number]] (Normal) Collected: 11/19/17 1537 Order Status: Completed Lab Status: Preliminary result Updated: 11/20/17 0351 Specimen: Blood from Peripheral Blood Culture No growth: Monitored continually by instrument for 5 days Culture, Blood [[id number]] (Normal) Collected: 11/19/17 1506 Order Status: Completed Lab Status: Preliminary result Updated: 11/20/17 0321 Specimen: Blood from Peripheral Blood Culture No growth: Monitored continually by instrument for 5 days Culture, Urine [[id number]] Collected: 11/19/17 1416 Order Status: Completed Lab [...] Pharmacy Consult Nasim Jimenez 11/21/2017 11:[address] [facility] Nasim Hoff MD - 11/20/2017 10:04 AM PDT [facility] KELLIE GUTIERREZ HOSPITALIST PROGRESS NOTE Patient: Reagan Shepard : 1945: Age: 72 y.o. MedRec: [id number] Admission date: 11/19/2017 Hospital day # : [...] PH UA 5.0 5.0 - 8.0 Specific Kirby 1.017 1.001 - 1.030 PROTEIN UA 30 [...] Component Value Units Date/Time Culture, Wound, Smear [[id number]] Collected: 11/20/17 0825 Order Status: Sent Lab Status: In process Updated: 11/20/17 0829 Specimen: Tissue from Foot, Right Culture, Wound, Smear [[id number]] Collected: 11/19/172030 Order Status: Completed Lab Status: Preliminary result Updated: 11/20/17 09 Specimen: Tissue from Leg, Lower, Right Culture 2+ Gram Negative Jayesh, NOT Pseudomonas Comment: Identification and susceptibility to follow. 1+ Gram Positive Cocci Comment: Isolating for additional information. Gram Stain Result No white blood cells (PMNs) seen 1+ Gram negative rods Culture, Blood [[id number]] (Normal) Collected: 11/19/17 1537 Order Status: Completed Lab Status: Preliminary result Updated: 11/20/17 0351 Specimen: Blood from Peripheral Blood Culture No growth: Monitored continually by instrument for 5 days Culture, Blood [[id number]] (Normal) Collected: 11/19/17 1506 Order Status: Completed Lab Status: Preliminary result Updated: 11/20/17 0321 Specimen: Blood from Peripheral Blood Culture No growth: Monitored continually by instrument for 5 days Culture, Urine [[id number]] (Normal) Collected: 11/19/17 1416 Order Status: Completed [...] Pharmacy Consult Nasim Jimenez 11/20/2017 10:[address] [facility] ico, Shirley Fuller mD - [...] right cerebral hemisphere; Diabetes mellitus ([facility]); Stroke (cerebrum) ([facility]); [...] wo und care x 1 year per [place]. Antimicrobials - Current Antibiotic Dates of Therapy vancomycin 11/19- zosyn 11/19- Antimicrobials - Discontinued Antibiotic Dates of Therapy Historical Vancomycin dosing (previous & current encounter): none Micro/Cultures/Diagnostics: Microbiology Results (Last 14 Days by Collected Date with Culture/Sensitivity) Procedure Component Value Units Date/Time Culture, Wound, Smear [[id number]] Collected: 11/20/17824 Order Status: Sent Lab Status: In process Updated: 11/20/17828 Specimen: Tissue from Foot, Right Culture, Wound, Smear [[id number]] Collected: 11/19/172030 Order Status: Completed Lab Status: Preliminary result Updated: 11/20/17899 Specimen: Tissue from Leg, Lower, Right Culture 2+ Gram Negative Jayesh, NOT Pseudomonas Comment: Identification and susceptibility to follow. 1+ Gram Positive Cocci Comment: Isolating for additional information. Gram Stain Result No white blood cells (PMNs) seen 1+ Gram negative rods Culture, Respiratory, Lower, Smear [[id number]] Order Status: Sent Lab Status: No result Specimen: Body Fluid from Sputum, Expectorated Culture, Wound, Smear [[id number]] Order Status: Canceled Lab Status: No result Specimen: Tissue from Leg, Left Culture, Blood [[id number]] (Normal) Collected: 11/19/17 1537 Order Status: Completed Lab Status: Preliminary result Updated: 11/20/17 0351 Specimen: Blood from Peripheral Blood Culture No growth: Monitored continually by instrument for 5 days Culture, Blood [[id number]] (Normal) Collected: 11/19/17 1506 Order Status: Completed Lab Status: Preliminary result Updated: 11/20/17 0321 Specimen: Blood from Peripheral Blood Culture No growth: Monitored continually by instrument for 5 days Culture, Urine [[id number]] (Normal) Collected: 11/19/17 1416 Order Status: Completed [...] Value Units Date/Time Culture, Respiratory, Lower, Smear [[id number]] Order Status: Sent Lab Status: No result Specimen: Body Fluid from Sputum, Expectorated Culture, Wound, Smear [[id number]] Order Status: Sent Lab Status: No result Specimen: Tissue from Leg, Left Culture, Blood [[id number]] Collected: 11/19/17 1537 Order Status: Sent Lab Status: In process Updated: 11/19/17 1543 Specimen: Blood from Peripheral Blood Culture, Blood [[id number]] Collected: 11/19/17 1506 Order Status: Sent Lab Status: In process Updated: 11/19/17 1511 Specimen: Blood from Peripheral Blood Culture, Urine [[id number]] Collected: 11/19/17 1416 Order Status: Sent Lab [...] K?MRN: | | | | | | [id number] | | | [id number] | | | his | | | [...] | | | ent/06 | | | [id number] | | | -9b07- | | | [...] | | | St. | | | [place] | | | y H. | | [...] | | | St. | | | [place] | | | y | | | [...] [address] | [place] | [phone] | | [facility] | | [address] | | | - LABORATORY | | [...] + | [facility] | [address] | [place] | [phone] | | [facility] | | [address] | | | - LABORATORY | | [...] + | [facility] | [address] | [place] | [phone] | | [facility] | | [address] | | | - LABORATORY | | [...] | | | FILTRATION | mL/min/1.73m2 | [facility] | | | [place] | RATE,ESTIMATED | | MEDICAL | | | | mL/min/1.30t1Lpuv than | | CENTER - | | [...] + + | Performing | Address | City/State[facility] | Phone Number | | Organization | | | | + + + + + | [facility] | [address] | [place] | [phone] | | [facility] | | [address] | | | - LABORATORY | | [...] | K/uL | [facility] | | | | | | MEDICAL [...] [address] | [place] | [phone] | | [facility] | | [address] | | | - LABORATORY | | [...] [address] | [place] | [phone] | | [facility] | | [address] | | | - LABORATORY | | [...] [address] | [place] | [phone] | | [facility] | | [address] | | | - LABORATORY | | [...] [address] | [place] | [phone] | | [facility] | | [address] | | | - LABORATORY | | [...] + | [facility] | [address] | [place] | [phone] | | [facility] | | [address] | | | - LABORATORY | | [...] mL/min/1.73m2 | [facility] | | | [place] | RATE,ESTIMATED | | MEDICAL | | | | mL/min/1.73l9Sibc than | | CENTER - | | [...] [address] | [place] | [phone] | | [facility] | | [address] | | | - LABORATORY | | [...] [address] | [place] | [phone] | | [facility] | | [address] | | | - LABORATORY | | [...] + | [facility] | [address] | [place] | [phone] | | [facility] | | [address] | | | - LABORATORY | | [...] [address] | [place] | [phone] | | [facility] | | [address] | | | - LABORATORY | | [...] [address] | [place] | [phone] | | [facility] | | [address] | | | - LABORATORY | | [...] + | [facility] | [address] | [place] | [phone] | | [facility] | | [address] | | | - LABORATORY | | [...] [address] | [place] | [phone] | | [facility] | | [address] | | | - LABORATORY | | [...] mL/min/1.73m2 | [facility] | | | [place] | RATE,ESTIMATED | | MEDICAL | | | | mL/min/1.95m1Aekm than | | CENTER - | | [...] [address] | [place] | [phone] | | [facility] | | [address] | | | - LABORATORY | | [...] + | [facility] | [address] | [place] | [phone] | | [facility] | | [address] | | | - LABORATORY | | [...] [address] | [place] | [phone] | | [facility] | | [address] | | | - LABORATORY | | [...] [address] | [place] | [phone] | | [facility] | | [address] | | | - LABORATORY | | [...] + | [facility] | [address] | [place] | [phone] | | [facility] | | [address] | | | - LABORATORY | | [...] ST. | [address] | [place] | [phone] | | [facility] | | [address] | | | - LABORATORY | | [...] [address] | [place] | [phone] | | [facility] | | [address] | | | - LABORATORY | | [...] [address] | [place] | [phone] | | [facility] | | [address] | | | - LABORATORY | | [...] ST. | [address] | [place] | [phone] | | [facility] | | [address] | | | - LABORATORY | | [...] | 1.04 | 0.60 - 1.30 | [facility] | | | | | mg/dL | [facility] | | | | | | MEDICAL | | | | | | CENTER - | | | | | | LABORATORY | | + + + + + + | eGFR if not | >60Comment: GLOMERULAR | >=60 | [facility] | | | | FILTRATION | mL/min/1.73m2 | [facility] | | | [place] | RATE,ESTIMATED | | MEDICAL | | | | mL/min/1.87h5Lbyg than | | CENTER - | | [...] | | | | mg/dL | [facility] | | | | [...] [address] | [place] | [phone] | | [facility] | | [address] | | | - LABORATORY | | [...] + | [facility] | [address] | [place] | [phone] | | [facility] | | [address] | | | - LABORATORY | | [...] ST. | [address] | [place] | [phone] | | [facility] | | [address] | | | - LABORATORY | | [...] [address] | [place] | [phone] | | [facility] | | [address] | | | - LABORATORY | | [...] | | | | [facility] | | | | | | MEDICAL [...] [address] | [place] | [phone] | | [facility] | | [address] | | | - LABORATORY | | [...] [address] | [place] | [phone] | | [facility] | | [address] | | | - LABORATORY | | [...] [address] | [place] | [phone] | | [facility] | | [address] | | | - LABORATORY | | [...] + | [facility] | [address] | [place], [place] | [phone] | | [facility] | | [address] | | | - LABORATORY | | [...] cells seen | [facility] | | | [facility] | | | [facility] | | | - LABORATORY | + + + + + + + + | Performing | Address | City/State/Zipcode | Phone Number | | Organization | | | | + + + + + | [facility] | [address] | [place] | [phone] | | [facility] | | [address] | | | - LABORATORY | | [...] + | [facility] | [address] | [place] | [phone] | | [facility] | | [address] | | | - LABORATORY | | [...] [address] | [place] | [phone] | | [facility] | | [address] | | | - LABORATORY | | [...] [address] | [place] | [phone] | | [facility] | | [address] | | | - LABORATORY | | [...] [address] | [place] | [phone] | | [facility] | | [address] | | | - LABORATORY | | [...] + | [facility] | [address] | [place] | [phone] | | [facility] | | [address] | | | - LABORATORY | | [...] | mL/min/1.73m2 | [facility] | | | [place] | RATE,ESTIMATED | | MEDICAL | | | | mL/min/1.98n9Idne than | | CENTER - | | [...] [address] | [place] | [phone] | | [facility] | | [address] | | | - LABORATORY | | [...] [address] | [place] | [phone] | | [facility] | | [address] | | | - LABORATORY | | [...] [address] | [place] | [phone] | | [facility] | | [address] | | | - LABORATORY | | [...] | | chronic inflammation suggestive of osteomyelitis. JVR:[facility]:C2NR | | | MICROSCOPIC EXAMINATION: [...] decalcified in decal | | | STAT).. am:AMB:[facility] PERFORMING LABORATORY: The technical | | | component was performed by [facility], [address] [facility], | | | [facility] [address] (Communications Department Head: Khadra Gill MD; CLIA# | | | [id number]). Professional interpretation was performed by [employer] | | | [employer], [facility], [address] | [address] [place] [address] (Communications Department Head: Ambrosio | | | Madison Hall). Diagnostician: Ambrosio Hall MD | | | Pathologist Electronically Signed 11/23/2017 | | + + + + +---------+ + + | Performing | Address | City/State/Zipcode | Phone Number | | Organization | | | | + +---------+ + + | [facility] | | | | | [facility] | | | | + +---------+ + [...] + | [facility] | [address] | [place] | [phone] | | [facility] | | [address] | | | - LABORATORY | | [...] | | | | | | n [address] | | | | | + +---------+ [...] + | [facility] | [address] | [place] | [phone] | | [facility] | | [address] | | | - LABORATORY | | [...] + + | Performed at: 01 - [facility] [address], | REFERENCE LAB | | [place], [place] [id number] Nuisance Wildlife Trapper: Jurgen Costa MD, Phone: | [facility] | | [phone] | | + + + + + + + + | Performing | Address | City/State/Zipcode | Phone Number | | Organization | | | | + + + + + | REFERENCE LAB | [address] | [place], [place] | [phone] | | [facility] | Corinne Vargas | [address] | | + + + + + [...] + | [facility] | [address] | [place] | [phone] | | [facility] | | [address] | | | - LABORATORY | | [...] [address] | [place] | [phone] | | [facility] | | [address] | | | - LABORATORY | | [...] [address] | [place] | [phone] | | [facility] | | [address] | | | - LABORATORY | | [...] [address] | [place] | [phone] | | [facility] | | [address] | | | - LABORATORY | | [...] [address] | [place] | [phone] | | [facility] | | [address] | | | - LABORATORY | | [...] [address] | [place] | [phone] | | [facility] | | [address] | | | - LABORATORY | | [...] [address] | [place] | [phone] | | [facility] | | [address] | | | - LABORATORY | | [...] [address] | [place] | [phone] | | [facility] | | [address] | | | - LABORATORY | | [...] + | [facility] | [address] | [place] | [phone] | | [facility] | | [address] | | | - LABORATORY | | [...] | mL/min/1.73m2 | [facility] | | | [place] | RATE,ESTIMATED | | MEDICAL | | | | mL/min/1.65p4Vqgt than | | CENTER - | | [...] [address] | [place] | [phone] | | [facility] | | [address] | | | - LABORATORY | | [...] + | [facility] | [address] | [place], [place] | [phone] | | [facility] | | [address] | | | - LABORATORY | | [...] | | | [facility] | | | | | | MEDICAL [...] [address] | [place] | [phone] | | [facility] | | [address] | | | - LABORATORY | | [...] + | [facility] | [address] | [place] | [phone] | | [facility] | | [address] | | | - LABORATORY | | [...] [address] | [place] | [phone] | | [facility] | | [address] | | | - LABORATORY | | [...] + | [facility] | [address] | [place] | [phone] | | [facility] | | [address] | | | - LABORATORY | | [...] + | [facility] | [address] | [place] | [phone] | | [facility] | | [address] | | | - LABORATORY | | [...] ST. | [address] | [place], [place] | [phone] | | [facility] | | [address] | | | - LABORATORY | | [...] + | [facility] | [address] | [place] | [phone] | | [facility] | | [address] | | | - LABORATORY | | [...] mL/min/1.73m2 | [facility] | | | [place] | RATE,ESTIMATED | | MEDICAL | | | | mL/min/1.03j1Wrrn than | | CENTER - | | [...] ST. | [address] | [place], [place] | [phone] | | [facility] | | [address] | | | - LABORATORY | | [...] [address] | [place] | [phone] | | [facility] | | [address] | | | - LABORATORY | | [...] | REFERENCE | | | | of [facility] | | LAB [facility] | | | | standards require a | | - BKR | | | | culture to beperformed | | | | | | on CSF specimens | | | | | | submitted for bacterial | | | | | | antigen testing.(CAP | | | | | | [id number]) Urine | | | | | | specimens will not be | | | | | | cultured. | | | | + + + + + + + + | Specimen | + + | Urine | + + + + + | Narrative | Performed At | + + + | Performed at: 01 - [facility] [place] [address] [facility], | REFERENCE LAB | | [place], [place] [address] Nuisance Wildlife Trapper: Christ Deal MD, Phone: | [facility] | | [phone] | | + + + + + + + + | Performing | Address | City/State/Zipcode | Phone Number | | Organization | | | | + + + + + | REFERENCE LAB | [address] | [place], [place] | [phone] | | [facility] | [facility] | [address] | | + + + + + [...] + | [facility] | [address] | [place] | [phone] | | [facility] | | [address] | | | - LABORATORY | | [...] - 1.030 | [facility] | | | [place], | | | [facility] | | [...] [address] | [place] | [phone] | | [facility] | | [address] | | | - LABORATORY | | [...] | | | | | | use Nova 10/325 if ordered. If | | | [...] scheduled: AC, NPO, Daytime | | | 8843-7376 Use NIGHT DOSE for | | | doses scheduled: HS, 3AM, | | | Nighttime 4574-1065, | | + +---+ | | | [...] | | | MEALS, First dose on [facility] 11/24/17 | | | | | | [...]
--- OUTSIDE RECORDS SUMMARY | ~2019-08-23 | XMS | Encounter Summary ---
Demographics + + + | Address | [address] | | | [place] [address] | + + + | Home Phone [...] | Organization | [facility] | | | and [place] | + + + | Address | Unknown | + + + | Phone | Unavailable | + + + Support + + + + + | Name | Relationship | Address | Phone | + + + + + | Jessica Shepard | ECON | [address] | | | | | [place] | | | | | [address] | | + + + + + | Bel Solis | ECON | Unknown | | + + + + + Care Team Providers + +------+ + | Care Lead Material Handler Name | Role | Phone | + [...] + + | 05/08/ | Office | [facility] | Mika Tim, DNP | Peripheral vascular | | 2020 | Visit | VASCULAR SURGERY | [address] | disease (HCC) | | | | [address] | [place] | (Primary Dx) | | | | [place] | [address] | | | | | [address] | | | | | | [phone] | Bhanu Seaman, | | | | | | [place]ANC[place] [address] | | | | | | [address] | | | | | | [place] [address] | | | | | | [phone] | | | | | | | [...] Bhanu Maguire PA-C - 05/08/2019 9:30 AM [facility] [address] [place] [address] Office: [phone] DATE OF VISIT: 05/08/2019 PATIENT NAME: Reagan Shepard : 1945; AGE: 74 y.o.; Sex:M PHONE NUMBER: ; ; PROVIDER: Bhanu Seaman PA-C PRIMARY CARE / REFERRING PHYSICIAN: Mika Tim DNP / Jamar Manuel MD / [address] / [place] [address] REASON FOR EVALUATION / CHIEF COMPLAINT: Vascular [...] is staying at [facility] in [place]. Mariaelena allen thinks his wounds are healing. [...] are healing well without signs of infection. [place] intact. Ulcers on right foot in h [...] o bilateral feet ulcers. Follow up with supply chain director soon. Return to vascular clinic in 2 [...]
--- OUTSIDE RECORDS SUMMARY | ~2019-08-23 | XMS | Encounter Summary ---
Demographics + + + | Address | [address] | | | [place] [address] | + + + | Home Phone [...] + | Jessica Shepard | ECON | [address] | | | | | [place] | | | | | [address] | | + + + + + | Bel Solis | ECON | Unknown | | + + + + + Care Team Providers + +------+ + | Care Supervisor Varnish Name | Role | Phone | + +------+ + PCP | Unavailable | + +------+ + Encounter Details +--------+ + + + + | Date | Type | Department | Care Team | Description | +--------+ + + + + | 04/16/ | Hospital | [facility] | Dian Lr NP | | | 2011 | Encounter | MED CTR XRAY [address] | | | | | [address] | [place] [address] | | | | | [place] [address] | [phone] | | | | | [phone] | | | +--------+ + + + [...] At | + + + | [facility] Diagnostic Imaging Department | [facility] | | [address] [facility] | [facility] | | BONE DENSITY TESTING: [...] Transcribed Date/Time: | | | 04/16/2011 14:14 Cafeteria Server: <Electronically Signed | | | by David Guillermo MD> 04/16/11 1459 | | + + + + + | Procedure Note | + + | Johnson, Rad Conversion - 04/27/2013 4:38 PM [facility] | | Diagnostic Imaging Department [address] [place] [address] | | BONE DENSITY TESTIN04/16/2011 CLINICAL HISTORY: [...] 13:48 | |Transcribed Date/Time: 04/16/2011 14:14 | |Cafeteria Server: | |<Electronically Signed by David Guillermo MD> [...]
--- OUTSIDE RECORDS SUMMARY | ~2019-08-23 | XMS | Encounter Summary ---
Demographics + + + | Address | [address] | | | [place] [address] | + + + | Home Phone [...] + | Jessica Shepard | ECON | [address] | | | | | [place] | | | | | [address] | | + + + + + | Bel Solis | ECON | Unknown | | + + + + + Care Team Providers + +------+ + | Care Mail Clerk Name | Role | Phone | [...] + + | 04/23/ | Telephone | [facility] | Dianna Hernandez, | Follow-up | | 2019 | | VASCULAR SURGERY | Spice Fumigator | | | | | [address] | | | | | | [place] | | | | | | [address] | | | | | | [phone] | | | +--------+ + + + [...]
--- OUTSIDE RECORDS SUMMARY | ~2019-08-23 | XMS | Encounter Summary ---
Demographics + + + | Address | [address] | | | [place] [address] | + + + | Home Phone | | + + + | Preferred Language | Unknown | + + + | Marital Status | | + + + | Confucianism Affiliation | 1076 | + + + | Race | Unknown | + + + | Ethnic Group | Unknown | + + + Author + + + | Author | [facility] | | | and [place] | + + + | Organization | [facility] | | | and [place] | + + + | Address | Unknown | + + + | Phone | Unavailable | + + + Support + + + + + | Name | Relationship | Address | Phone | + + + + + | Jessica Shepard | ECON | [address] | | | | | [place] | | | | | [address] | | + + + + + | Bel Solis | ECON | Unknown | | + + + + + Care Team Providers + +------+ + | Care Spreader Box Operator Name | Role | Phone | + +------+ + | Jamar Manuel MD | PCP | | + +------+ + Encounter Details +--------+ + + + + | Date | Type | Department | Care Team | Description | +--------+ + + + + | 04/18/ | Anesthesia | [facility] | Khadra Cheng, | | | 2019 | [facility] | [address] | | | | | OPER[address] | [place] [address] | | | | | [address] | [phone] | | | | | [place], [place] | | | | | | [address] | | | | | | [phone] | | | +--------+ + + + [...] +----+---+ + + | | 1 | [employer] | | | | 3 | 43-degrees [...] | Sheila Cabrera, | | Lumen | Food Service Hotel Runner; Kameron; Registered | | RN | | [...] | | | | lot number (specify) ([id number]); | | | | | 4 Fr, length (specify) (47cm | | | | | total [id number] out); | | | | | distraction, [...] | Khadra Cheng MD Authorizing provider: Khadra Chegn MD | | | Please see intraoperative [...]
--- OUTSIDE RECORDS SUMMARY | ~2019-08-23 | XMS | Encounter Summary ---
Demographics + + + | Address | [address] | | | [place] [address] | + + + | Home Phone [...] + | Jessica Amezquita | ECON | [address] | | | | | [place] | | | | | [address] | | + + + + + | Bel Solis | ECON | Unknown | | + + + + + Care Team Providers + +------+ + | Care Reimbursement Counselor Name | Role | Phone | + +------+ + | Dian Lr NP | PCP | | + +------+ + Encounter Details +--------+ + + + + | Date | Type | Department | Care Team | Description | +--------+ + + + + | 04/05/ | Hospital | [facility] | Cezar Da Silvaee | | | 2014 - | Encounter | MED CTR EMERGENCY | MD [address] | | | | | [place] [address] | [facility], | | | 04/06/ | | [place] | [place] [address] | | | 2013 | | [address] | [phone] | | | | | [phone] | | | +--------+ + + + [...] Performed At | + + + | [facility] Diagnostic Imaging | [place] | | Department [address] [facility] | [facility] | | [ rep ct [address]] [ rep ct [facility] [place] | | st [facility]] Signed | - IMAGING | | | | | Patient Name: REAGAN AMEZQUITA Physician: | | | ALICJAR. : 1945 Age: 68 Sex: M Unit #: [id number] | | | Exam Date: 04/05/13 Location: ER | | | Report #: [id number] Page: | | | %(RAD)RES..mtdd.print.filter("pg") of %(RAD) | | | RES..mtdd.print.filter("tpg") | | | | | | Accession Number: [id number] | | | ULTRASOUND OF THE ABDOMEN [...] Transcribed Date/Time: 04/06/2013 08:35 | | | Doggy Daycare Activities Director: <<Signature on File>> | | | | | | Rico Santiago MD04/06/13 1619 <Electronically signed by Rico Santiago | | | MD> Rico Santiago MD 04/06/13 0827 Doggy Daycare Activities Director: | | | efectivox Qckslvrjhesod90/17/14 0835 Christina Da Silva, | | | | | + + + + + + + + | Performing | Address | City/State/Zipcode | Phone Number | | Organization | | | | + + + + + | [facility] | [address] | [place] | [phone] | | [facility] | | [address] | | | - IMAGING | | | | + + + + + CT Abdomen Pelvis w Contrast (04/06/2013 7:25 AM PST) + + | Specimen | + + | | + + + + + | Narrative | Performed At | + + + | [facility] Diagnostic Imaging | [place] | | Department [address], [place] | [facility] | | [ rep ct street1[address]2] [ rep ct [facility] [place] | | st zip] Signed | - IMAGING | | | | | Patient Name: REAGAN AMEZQUITA Physician: | | | ALICJAR. : 1945 Age: 68 Sex: M Unit #: [id number] | | | Exam Date: 04/05/13 Location: ER | | | Report #: [id number] Page: | | | %(RAD)RES..mtdd.print.filter("pg") of %(RAD) | | | RES..mtdd.print.filter("tpg") | | | | | | Accession Number: [id number] | | | ENHANCED CT ABDOMEN AND [...] | fluid is evident. There are stable hwywvjshwc-qm-fklydu enlarged | | | kierra caval lymph [...] STABLE SPLENOMEGALY. | | | 4. STABLE [id number] ENLARGED KIERRA CAVAL LYMPH | | | [...] ER | | | staff by the [facility] radiologist on 04/05/2013 at 2147 hours. | | | Dictated Date/Time: 04/06/2013 07:25 Transcribed | | | Date/Time: 04/06/2013 07:40 Doggy Daycare Activities Director: | | | <<Signature on File>> | | | Tez Jacobo | | | MD Yossi04/06/13 1051 <Electronically signed by Tez Sy MD> | | | Tez Sy MD 04/06/13 0725 Doggy Daycare Activities Director: | | | efectivox Wpsjgxkrecwgw17/17/14 0740 Christina Da Silva, | | | | | + + + + + + + + | Performing | Address | City/State/Zipcode | Phone Number | | Organization | | | | + + + + + | [facility] | [address] | [place] | [phone] | | [facility] | | [address] | | | - IMAGING | | [...] - 1.030 | [facility] | | | [place], | | | [facility] | | [...] [address] | [place] | [phone] | | [facility] | | [address] | | | - LABORATORY | | | | + + + + + | [facility] | [address] | [place] | | | [facility] | | [address] | | | - LABORATORY [...] + | [facility] | [address] | [place] | [phone] | | [facility] | | [address] | | | - LABORATORY | | | | + + + + + | [facility] | [address] | [place], [place] | | | [facility] | | [address], [facility] | | | - LABORATORY | | [...] + | [facility] | [address] | [place], [place] | [phone] | | [facility] | | [facility] | | | - LABORATORY | | | | + + + + + | [facility] | [address] | [place], [place] | | | [facility] | | [address] [place] [address] | | | - LABORATORY | | [...] [address] | [place] | [phone] | | [facility] | | [address] | | | - LABORATORY | | | | + + + + + | [facility] | [address] | [place] | | | [facility] | | [address], [facility] | | | - LABORATORY | | [...] | | | | | REPORT TO [facility] | | | | | | 04/05/13 @ 1919 by | | | | | | SHANE | | | | | | Comment: PHONED REPORT TO [facility] 04/05/13 @ 1919 by SHANE | | [...] [address] | [place] | [phone] | | [facility] | | [address] | | | - LABORATORY | | | | + + + + + | [facility] | [address] | [place] | | | [facility] | | [address] | | | - LABORATORY | | | | + + + + + documented in this encounter Visit Diagnoses Not on filedocumented in this encounter
[~2019-08-23 08:28] MED LIST changes: +AMOX TR-K CLV1 EAC1 PO; +ARTIFICIAL TEAR15 M3 OU; +FLORASTOR250 MG PO; +GLUCAGON EMERGEN1 M1 IM; +LOPERAMIDE2 M1 PO; +METAMUCIL660 GM PO; +MIRTAZAPINE7.5 MG PO; +PROTONIX40 MG PO; +TORSEMIDE10 MG PO; +VOLTAREN100 GM TOP
--- OUTSIDE RECORDS SUMMARY | 2019-08-23 08:30 | XMS ---
PreManage Notification: SAROJ AMEZQUITA Security Research Attorney Events No recent Security Events currently on file CRITERIA MET - 6 ED Visits in 6 Months - History of Sepsis Dx [facility] - 2 Visits in 30 Days CARE PROVIDERS Name Unknown Intermediate Facility Current PHONE: [phone] [facility] 01/08/2019-Current PHONE: [phone] Leonard Lopez [facility] Current PHONE: [phone] Name Unknown Clinic/Center: [facility] 03/27/2019-Current PHONE: [phone] Jalen has no Care Guidelines for this patient. Care History Medical/Surgical 03/27/2019 [facility] - PATIENT HAS PCP-DR ROSLYN JONES AT [facility] HIS PCP- - LAST VISIT WITH DR JONES WAS ON 02/05/19 AND PT WAS SCHEDULED FOR PATIENT- PATIENT WAS SUPPOSED TO BE SEEN ON 03/22/2019 FOR PT - PROVIDER DOES NOT HAVE RECORDS. - PATIENT RECENTLY HAD A GEC DONE BY THE [facility] PROVIDER IN OCTOBER 2018. - [facility] WILL HAVE ALL RECENT ED RECORDS SENT TO PCP AT THE [facility]-PATIENT DOES NOT HAVE DR CHI PCP. Ad. VISIT COUNT (12 MO.) 9 [facility] TOTAL 9 NOTE: Visits indicate total known visits. ED/UCC VISIT TRACKING (12 MO.) 08/23/2019 08:28 [facility] [place] TYPE: Emergency COMPLAINT: - MULTIPLE COMPLAINTS 08/08/2019 14:55 [facility] [place] TYPE: Emergency COMPLAINT: - SEPSIS 05/18/2019 15:02 [facility] [place] TYPE: Emergency COMPLAINT: - ARM SWELLING DIAGNOSES: - Presence of cardiac and vascular implant and graft, unspecifi - manager terminal (current) use of insulin - Personal history of nicotine dependence - Post-traumatic stress disorder, unspecified - Other watermaster (current) drug therapy - Other specified soft tissue disorders - Pain in right upper arm - Type 2 diabetes mellitus with diabetic polyneuropathy - manager terminal (current) use of aspirin 04/24/2019 13:13 [facility] [...] specified abnormal findings of blood chemistry - snf (current) use of aspirin - Personal history of transient ischemic attack (TIA), and cere - Other watermaster (current) drug therapy - Personal history of nicotine dependence - manager terminal (current) use of insulin - Dyspnea, unspecified - Acute on chronic systolic (congestive) heart failure - Type 2 diabetes mellitus with diabetic polyneuropathy 03/28/2019 09:43 [facility] [place] TYPE: Emergency COMPLAINT: - ALTERED LOC 03/22/2019 18:35 [facility] [place] TYPE: Emergency COMPLAINT: - SOB DIAGNOSES: - Shortness of breath - Heart failure, unspecified - Other custodial (current) drug therapy - Type 2 diabetes mellitus with diabetic polyneuropathy - Personal history of nicotine dependence 03/16/2019 17:57 [facility] [place] TYPE: Emergency COMPLAINT: - DRESSING CHANGE DIAGNOSES: - Type 2 diabetes mellitus with diabetic polyneuropathy - Acquired absence of left foot - Other custodial (current) drug therapy - Non-pressure chronic ulcer of other part of left foot with un - Type 2 diabetes mellitus with foot ulcer - snf (current) use of insulin - Personal history of nicotine dependence - Non-pressure chronic ulcer of other part of right foot with u - Encounter for change or removal of surgical wound dressing - snf (current) use of aspirin 01/06/2019 00:10 [facility] [place] TYPE: Emergency COMPLAINT: - POST OP PROBLEM DIAGNOSES: - snf (current) use of aspirin - Personal history of nicotine dependence - Type 2 diabetes mellitus with diabetic neuropathy, unspecifie - Other watermaster (current) drug therapy - Encounter for change or removal of surgical wound dressing - manager terminal (current) use of insulin INPATIENT VISIT TRACKING (12 MO.) 08/08/2019 14:56 [facility] [place] TYPE: Observation COMPLAINT: - ALTERED LEVEL OF CONSCIOUSNESS DIAGNOSES: - Dorsalgia, unspecified - Altered mental status, unspecified - Personal history of traumatic brain injury - Personal history of nicotine dependence - Other chronic pain - Personal history of transient ischemic attack (TIA), and cere - Type 2 diabetes mellitus with diabetic polyneuropathy - Chronic systolic (congestive) heart failure - Hypotension, unspecified - Contact with and (suspected) exposure to other viral communic - Vomiting, unspecified - Fever, unspecified - Hypoxemia 04/06/2019 01:23 [facility] TYPE: Vascular Surgery DIAGNOSES: - Other osteomyelitis, ankle and foot - Other chronic osteomyelitis, unspecified site - Bacterial infection, unspecified - snf (current) use of insulin - Essential (primary) [...] Personal history of traumatic brain injury - manager terminal (current) use of insulin - Low back pain - Adverse effect of diagnostic agents, initial encounter - Low back pain - manager terminal (current) use of aspirin - Acute respiratory failure with hypoxia - Sepsis due to streptococcus, group B - Bed confinement status - Unspecified place in hospital as the place of occurrence of t - Personal history of traumatic brain injury - Hypertensive heart disease with heart failure - manager terminal (current) use of aspirin - Non-pressure chronic [...] heel and midfoot with nec - Other watermaster (current) drug therapy - Bed confinement status [...] heel and midfoot with necr - Other custodial (current) drug therapy - Type 2 diabetes mellitus with diabetic peripheral angiopathy - snf (current) use of insulin - Severe sepsis with septic shock - Personal history of nicotine dependence [email or web address]
[2019-08-23] MEDS ORDERED: KLOR-CON 1010 MEQ PO (09:09)
[2019-08-23] MEDS ORDERED: PROMETHAZINE HC25 M1 PO (09:41)
[2019-08-23] MEDS ORDERED: SIMETHICONE80 MG PO (09:43)
== END 2019-08-23 14:54 | disposition short-term general hospital (02) ==
LOC: ED 08:28
DX: S22.069A Unspecified fracture of T7-T8 vertebra, initial encounter for closed fracture (principal); D64.9 Anemia, unspecified; K59.00 Constipation, unspecified; K85.90 Acute pancreatitis without necrosis or infection, unspecified; E11.42 Type 2 diabetes mellitus with diabetic polyneuropathy; Z79.899 Other long term (current) drug therapy; Z79.4 Long term (current) use of insulin; Z79.82 Long term (current) use of aspirin; Z79.02 Long term (current) use of antithrombotics/antiplatelets; X58.XXXA Exposure to other specified factors, initial encounter
CPT/HCPCS: 74177; 80053; 81001; 83605; 83690; 85025; 85651; 86140; 96361; 99285-25; J7030; Q9967

== ENCOUNTER 2020-01-24 11:45 | Inpatient (IN) | payer MEDICARE ==
[~2020-01-24] VITALS: Ht 177.8 cm; Wt 102.7 kg
[~2020-01-24 11:45] MED LIST changes: -GABAPENTIN800 MG PO; +PROMETHAZINE HC25 M1 PO; +SIMETHICONE80 MG PO
--- OUTSIDE RECORDS SUMMARY | 2020-01-24 11:48 | XMS ---
PreManage Notification: SAROJ AMEZQUITA Security Apartment Manager Events No recent Security Events currently on file CRITERIA MET - History of Sepsis Dx CARE PROVIDERS Name Unknown [facility] Current PHONE: [phone] [facility] 01/08/2019-Current PHONE: [phone] [facility] Current PHONE: [phone] Name Unknown Clinic/Center: [facility] 03/27/2019-Current PHONE: [phone] Jalen has no Care Guidelines for this patient. Care History Medical/Surgical 03/27/2019 [facility] - PATIENT HAS PCP-DR ROSLYN JONES AT THE [facility] HIS PCP- - LAST VISIT WITH DR JONES WAS ON 02/05/19 AND PT WAS SCHEDULED FOR PATIENT- PATIENT WAS SUPPOSED TO BE SEEN ON 03/22/2019 FOR PT - PROVIDER DOES NOT HAVE RECORDS. - PATIENT RECENTLY HAD A GEC DONE BY THE [facility] PROVIDER IN OCTOBER 2018. - W WILL HAVE ALL RECENT ED RECORDS SENT TO PCP AT THE [facility]-PATIENT DOES NOT HAVE DR CHI PCP. [place]. VISIT COUNT (12 MO.) 9 [facility] TOTAL 9 NOTE: Visits indicate total known visits. ED/UCC VISIT TRACKING (12 MO.) 01/24/2020 11:46 [facility] [place] TYPE: Emergency COMPLAINT: - FALL 08/23/2019 08:28 [facility] [place] TYPE: Emergency COMPLAINT: - MULTIPLE COMPLAINTS DIAGNOSES: - MCC (current) use of insulin - Anemia, unspecified - Acute pancreatitis without necrosis or infection, unspecified - Type 2 diabetes mellitus with diabetic polyneuropathy - Exposure to other specified factors, initial encounter - Constipation, unspecified - MCC (current) use of aspirin - Unspecified abdominal pain - Unspecified fracture of T7-T8 vertebra, initial encounter for closed fracture - terminal clerk (current) use of antithrombotics/antiplatelets - Other group home (current) drug therapy 08/08/2019 14:55 [facility] [place] TYPE: Emergency COMPLAINT: - SEPSIS 05/18/2019 15:02 [facility] [place] TYPE: Emergency COMPLAINT: - ARM SWELLING DIAGNOSES: - Presence of cardiac and vascular implant and graft, unspecified - terminal clerk (current) use of insulin - Personal history of nicotine dependence - Post-traumatic stress disorder, unspecified - Other director long term care (current) drug therapy - Other specified soft tissue disorders - Pain in right upper arm - Type 2 diabetes mellitus with diabetic polyneuropathy - terminal clerk (current) use of aspirin 04/24/2019 13:13 [facility] [place] TYPE: Emergency COMPLAINT: - CHOKING EPISODE DIAGNOSES: - Shortness of breath - Personal history of nicotine dependence - Other specified symptoms and signs involving the circulatory and respiratory systems - Type 2 diabetes mellitus with diabetic neuropathy, unspecified - Other specified symptoms and signs involving the circulatory and respiratory systems 04/05/2019 15:20 [facility] [place] TYPE: Emergency COMPLAINT: - SOB DIAGNOSES: - Other specified abnormal findings of blood chemistry - MCC (current) use of aspirin - Personal history of transient ischemic attack (TIA), 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 deficits - Other group home (current) drug therapy - Personal history of nicotine dependence - terminal clerk (current) use of insulin - Dyspnea, unspecified - Acute on chronic systolic (congestive) heart failure - Type 2 diabetes mellitus with diabetic polyneuropathy 03/28/2019 09:43 [facility] [place] TYPE: Emergency COMPLAINT: - ALTERED LOC 03/22/2019 18:35 [facility] [place] TYPE: Emergency COMPLAINT: - SOB DIAGNOSES: - Shortness of breath - Heart failure, unspecified - Other director long term care (current) drug therapy - Type 2 diabetes mellitus with diabetic polyneuropathy - Personal history of nicotine dependence 03/16/2019 17:57 [facility] [place] TYPE: Emergency COMPLAINT: - DRESSING CHANGE DIAGNOSES: - Type 2 diabetes mellitus with diabetic polyneuropathy - Acquired absence of left foot - Other director long term care (current) drug therapy - Non-pressure chronic ulcer of other part of left foot with unspecified severity - Type 2 diabetes mellitus with foot ulcer - MCC (current) use of insulin - Personal history of nicotine dependence - Non-pressure chronic ulcer of other part of right foot with unspecified severity - Encounter for change or removal of surgical wound dressing - terminal clerk (current) use of aspirin INPATIENT VISIT TRACKING (12 MO.) [facility] DIAGNOSES: - Obesity, unspecified - Wedge compression fracture of T7-T8 vertebra, subsequent encounter for fracture with routine healing - compression fracture 08/08/2019 14:56 [facility] TYPE: Observation COMPLAINT: - ALTERED LEVEL OF CONSCIOUSNESS DIAGNOSES: - Dorsalgia, unspecified - Altered mental status, unspecified - Personal history of traumatic brain injury - Personal history of nicotine dependence - Other chronic pain - Personal history of transient ischemic attack (TIA), 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 deficits - Type 2 diabetes mellitus with diabetic polyneuropathy - Chronic systolic (congestive) heart failure - Hypotension, unspecified - Contact with and (suspected) exposure to other viral communicable diseases - Vomiting, unspecified - Fever, unspecified - Hypoxemia 04/06/2019 01:23 [facility] TYPE: Vascular Surgery DIAGNOSES: - Other osteomyelitis, ankle and foot - Other chronic osteomyelitis, unspecified site - Bacterial infection, unspecified - terminal clerk (current) use of insulin - Essential (primary) hypertension - NSTEMI - Peripheral vascular disease, unspecified - Chest pain, unspecified - Hemiplegia, unspecified affecting left nondominant side - Osteomyelitis, unspecified - Other acute osteomyelitis, right ankle and foot - Gangrene, not elsewhere classified - Methicillin resistant Staphylococcus aureus infection, unspecified site - Type 2 diabetes mellitus without complications 03/28/2019 15:00 [facility] [place] TYPE: Medical Surgical COMPLAINT: - ACUTE RESP FAILURE/ACUTE CHF SYSTOLIC DIAGNOSES: - Sepsis due to streptococcus, group B - Acute respiratory failure with hypoxia - Iron deficiency anemia, unspecified - Hypertensive heart disease with heart failure - Nephropathy induced by other drugs, medicaments and biological substances - Acute on chronic systolic (congestive) heart failure - Non-pressure chronic ulcer of other part of right lower leg with fat layer exposed - Personal history of nicotine dependence - Gastro-esophageal reflux disease without esophagitis - Type 2 diabetes mellitus with diabetic polyneuropathy - Personal history of traumatic brain injury - MCC (current) use of insulin - Low back pain - Adverse effect of diagnostic agents, initial encounter - Low back pain - terminal clerk (current) use of aspirin - Acute respiratory failure with hypoxia - Sepsis due to streptococcus, group B - Bed confinement status - Unspecified place in hospital as the place of occurrence of the external cause - Personal history of traumatic brain injury - Hypertensive heart disease with heart failure - MCC (current) use of aspirin - Non-pressure chronic ulcer of other part of right lower leg with fat layer exposed - Type 2 diabetes mellitus with diabetic peripheral angiopathy without gangrene - Unspecified place in hospital as the place of occurrence of the external cause - Gastro-esophageal reflux disease without esophagitis - Acute on chronic systolic (congestive) heart failure - 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rosis of muscle - Hypo-osmolality and hyponatremia - Other chronic pain - Acute kidney failure, unspecified - Severe sepsis with septic shock - Type 2 diabetes mellitus with foot ulcer - Nephropathy induced by other drugs, medicaments and biological substances - 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rosis of muscle - Other group home (current) drug therapy - Bed confinement status - Adverse effect of diagnostic agents, initial encounter - Non-pressure chronic ulcer of left heel and midfoot with necrosis of muscle - Type 2 diabetes mellitus with foot ulcer - Myocardial infarction type 2 - 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cting left non-dominant side - Hypo-osmolality and hyponatremia - Iron deficiency anemia, unspecified - Shortness of breath - 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cting left non-dominant side - Type 2 diabetes mellitus with diabetic polyneuropathy - Myocardial infarction type 2 - Acute kidney failure, unspecified - Other chronic pain - Non-pressure chronic ulcer of left heel and midfoot with necrosis of muscle - Other group home (current) drug therapy - Type 2 diabetes mellitus with diabetic peripheral angiopathy without gangrene - MCC (current) use of insulin - Severe sepsis with septic shock - Personal history of nicotine dependence [email or web address]
[2020-01-24] MEDS ORDERED: LOSARTAN POTASS25 MG PO (12:16)
[2020-01-24] MEDS ORDERED: POLYETHYLENE GLY1 GM PO (12:21)
[2020-01-24] MEDS ORDERED: SENNA8.6 MG PO (12:23)
--- NOTE | 2020-01-24 14:17 | EKG ---
[facility] [address] [facility] [place], [place] [address] Signed Normal sinus rhythm Inferior infarct , age undetermined Abnormal ECG When compared with ECG of 24-APR-2019 13:21, Inferior infarct is now present Confirmed by LEXIE RAGSDALE MD ([id number]) on 01/24/2020 2:17:04 PM Electronically Signed By: LEXIE RAGSDALE MD 01/24/20 1417 PATIENT NAME: SAROJ AMEZQUITA Electrocardiogram DATE OF : 49 PHYSICIAN: LEXIE RAGSDALE MD REPORT #: [id number] REPORT IS CONFIDENTIAL AND NOT TO BE RELEASED WITHOUT AUTHORIZATION
[2020-01-24] MEDS ORDERED: LEVOTHYROXINE125 MCG PO (17:11)
[2020-01-24] MEDS ORDERED: VITAMIN D3125 MC2 PO (17:12)
[2020-01-24] MEDS ORDERED: FENOFIBRATE160 MG PO (17:12)
[2020-01-24] MEDS ORDERED: AMITRIPTYLINE H50 MG PO (17:13)
[2020-01-24] MEDS ORDERED: ALDACTONE25 MG PO (17:14)
--- NOTE | 2020-01-24 18:20 | NUR ---
FÉLIX ZARATE CALLED FROM ER TO GIVE REPORT ON PT.
--- NOTE | 2020-01-24 18:52 | NUR ---
PT ARRIVED TO UNIT VIA STRETCHER @ 1835 ACCOMPANIED BY FÉLIX ZARATE. PT APPEARS LETHARGIC, RESPONSIVE TO SHAKING AND WHEN WOKEN, HE IS CONFUSED. BG IS 121. PT HAS MULTIPLE WOUNDS, 2 TO RIGHT WATSON, ISLAND DRESSINGS C,D,I. KELSEY DRESSING TO RIGHT FOOT ULCER. LEFT BIG TOE WOUND IS OPEN TO AIR. HR IN 70'S, BP 107/58 (72) RR 22 SPO2 94 ON 2 L NC, TEMP 99.0. PT IS REPORTED TO BE INCONTINENT TO URINE AND STOOL. HAS BEEN AT [facility]. DAUGHTER IS PRESENT IN ROOM. WOULD LIKE TO SPEAK WITH MD BEFORE CONSIDERING LEAVING PT.
--- NOTE | 2020-01-24 19:30 | NUR ---
SHIFT REPORT RECIEVED. PATIENT RESTING IN BED. WAKES TO VOICE. VS STABLE. FAMILY AT BEDSIDE.
--- NOTE | 2020-01-24 19:35 | NUR ---
DISCUSSION WITH . MONSIVAIS ORDERED FOR STRICT I&O'S PATIENT IS INCONTINENT. PATIENT IS NOT A COVID RULE OUT PER MD.
--- NOTE | 2020-01-24 20:00 | NUR ---
PATIENT MORE ALERT. ABLE TO HOLD SMALL CONVERSATIONS BUT FALLS ASLEEP QUICKLY. FAMILY REPORTS THIS IS NOT HIS NORMAL LEVEL OF ACTIVITY. DISCUSSED MONSIVAIS WITH FAMILY AND PATIENT AND ALL AGREE TO PLACEMENT. PATIENT ABLE TO SIP WATER WITH ASSISTANCE AND TAKES HIS MEDS WITH NO ISSUES. REQUEST HE TAKES HIS TRAZDONE FOR EVEN WITH CURRENT LEVEL OF ALERTNESS AND AGREES TO WEAR BIPAP FOR THE NIGHT. PATIENT PLACED ON BIPAP WITH 35% Fi02 BY RT. MONSIVAIS PLACED. 675 MLS CLEAR YELLOW URINE NOTED. ATTENDS CLEAN, SMALL BM. BARRIER CREAM APPLIED. PATIENT'S INNER THIGHS, GROIN AND COCCYX ARE RED. NO OPEN AREAS NOTED. ALYVEN ON COCCYX. POSIITONED PATIENT SLGIHTLY TO RIGHT SIDE. ELEVATED LEFT ARM, WHICH APPEARS TO HAVE SOME GENERAL EDEMA. MORE THAN THE RIGHT. MULTIPLE WOUNDS NOTED ON JENNIFER LOWER EXTREMITIES. KELSEY DRESSING INTACT, GREEN LIGHT NOTED. HEELS FLOATED. IV FLUIDS PER ORDER. SITE WNL X2.
--- NOTE | 2020-01-24 20:30 | NUR ---
PATIENT TOLERATING BIPAP WELL. LABS DRAWN. IV ABX STARTED. PATIENT BLOOD GLUCOSE 90, INSULIN HELD AT THIS TIME. AWARE.
--- NOTE | 2020-01-24 22:11 | NUR ---
IV ABX STARTED PER ORDER, SITE WNL. PATIENT TOLERATING BIPAP. VS STABLE. GOOD URINE OUTPUT.
--- NOTE | 2020-01-25 00:30 | NUR ---
PATIENT REMOVED BIPAP. ASSISTED PATIENT TO DRINK SOME WATER. PATIENT IS ORIENTED TO PLACE AND YEAR, NOT THE EVENT PRIOR TO ARRIVAL. WOUND CARE DONE. PICTURES ON CHART. PATIENT PROVIDED VERBAL CONSENT. NEW DRESSINGS APPLIED TO ALL EXCEPT THE KELSEY DRESSING ON RIGHT FOOT. GOOD URINE OUTPUT NOTED. IV FLUIDS PER ORDER, SITE WNL. LUNG SOUNDS ARE CLEAR BUT DIMINISHED. PATIENT CONTINUES TO BE DROWSY AND HAS SEVERE APNIC PERIODS WHERE HE DESATS TO 85% ON 2L NC. PATIENT PLACED BACK ON BIPAP WHICH HE IS AGREEABLE TO.
--- NOTE | 2020-01-25 01:42 | NUR ---
Patient sleeping, respirations even and unlabored. Bipap in place with 35% FiO2, SpO2 of 99%. HR in the 60's. Fluids and IV abx infusing. Call light within reach.
--- NOTE | 2020-01-25 04:00 | NUR ---
PATIENT APPEARS TO BE SLEEPING SOUNDLY. WAKES EASILY TO VOICE. VS STABLE. TOLERATING BIPAP. ALLOWED PATIENT TO REST. CALL LIGHT IN REACH.
--- NOTE | 2020-01-25 05:00 | NUR ---
Patient laying in bed, removes bipap. 2LNC put in place, SpO2 remains in mid-90's. Patient reports feeling hungry, plan to bring ensure into room. Pillows adjusted under patient's left hip for comfort. Patient requests tv remote to watch tv, which is provided. Patient denies any further needs at this time, call light within reach.
--- NOTE | 2020-01-25 06:00 | NUR ---
PATIENT MORE ALERT THIS MORNING. TOLERATED BIPAP MOST OF THE NIGHT. NOW ON 2L NC WHILE AWAKE WATCHING TV. PATIENT DRANK AN ENSURE AND REPORTS BEING HUNGRY. GOOD URINE OUTPUT NOTED. PATIENT HAD MEDIUM SOFT BM. ATTENDS CHANGED. JUAN JOSE ESQUIVEL ON COCCYX. PATIENT REPOSITIONED TO RIGHT SIDE. REPORTS BEING COMOFRTABLE. SECOND ENSURE PROVIDED. IV ABX PER ORDER, SITE WNL. MORNING LABS DRAWN. PATIENT GOWN CHANGED.
--- NOTE | 2020-01-25 07:48 | NUR ---
REPORT RECEIVED FROM EARLENE RN'S. PT AWAKE ON 2 L NC THIS MORNING. UP IN BED WATCHING TV. LUNG SOUNDS BUL CLEAR, DIMINISHED IN BLL. RR 22. PT APPEARS TO HAVE SOME ACCESSORY MUSCLE USE WHILE BREATHING. SAYS HE SLEPT WELL LAST NIGHT. REQUESTING BREAKFAST THIS MORNING.
--- NOTE | 2020-01-25 09:00 | NUR ---
PT UP IN BED EATING BREAKFAST. TAKES ORAL MEDS WITH H2O WITHOUT DIFFICULTY. AWAKE AND ALERT THIS MORNING. REPORTS THE KELSEY DRESSING ON RIGHT FOOT IS CHANGED WEEKLY BY DR. CRUZ. WILL ATTEMPT TO REACH TO CONSULT ON WOUND CARE NEEDS.
--- NOTE | 2020-01-25 09:45 | NUR ---
PATIENT SLEEPING. COVID TEST PENDING.
--- NOTE | 2020-01-25 09:53 | NUR ---
CALLED AND SPOKE WITH DR. CRUZ ABOUT PT WOUND CARE. REPORTS KELSEY DRSG WAS PLACED WITH GRAFTING MATERIAL ON 01/21 AND SHOULD LAST UNTIL TUESDAY OR TUESDAY WHEN DR. CRUZ CAN COME TO FACILITY AND CHANGE DRESSING IF PT IS STILL AN INPATIENT HERE. LAST CHART NOTE AND PICTURES WILL BE FAXED TO CCU. DR. RAGSDALE IN TO ASSESS PT AT THIS TIME.
--- NOTE | 2020-01-25 10:12 | NUR ---
PT'S CEFEPIME INFUSION COMPLETED. IN TO FLUSH AND DISCONNECT PT FROM IV FLUIDS. DC'D FLUIDS.
--- NOTE | 2020-01-25 11:30 | NUR ---
SPOKE WITH ADOLFO AT [facility] WHO WANTED TO KNOW IF HE WAS ADMITTED INPATIENT. STATUS WAS AFFIRMED. SHE STATES THEY DO INTEND FOR HIS RETURN WHEN DISCHARGED.
[2020-01-25] MEDS ORDERED: BASAGLAR K100 UNIT/1 SUB-Q (12:14)
[2020-01-25] MEDS ORDERED: ASPERCREME 1035.4 GM TOP (12:22)
[2020-01-25] MEDS ORDERED: COLACE100 MG PO (12:29)
--- NOTE | 2020-01-25 12:29 | NUR ---
STAFF IN WORKING WITH PT. WILL CHECK BACK
--- NOTE | 2020-01-25 12:30 | NUR ---
PT HAS HAD A GOOD APPETITE THIS MORNING. CHANGED BRIEF AFTER BM, SMALL SOFT STOOL NOTED. REPOSITIONED TO RIGHT SIDE. WATCHING TELEVISION. CALL LIGHT WITHIN REACH.
[2020-01-25] MEDS ORDERED: TORSEMIDE20 MG PO (12:33)
[2020-01-25] MEDS ORDERED: ALLERGY EYE DRO15 ML OU (12:44)
--- NOTE | 2020-01-25 12:49 | NUR ---
MED REC COMPLETE
--- NOTE | 2020-01-25 14:30 | NUR ---
PT REPOSITIONED TO LEFT SIDE. CALL LIGHT WITHIN REACH.
--- NOTE | 2020-01-25 14:30 | NUR ---
PT ASLEEP IN BED. VISUALIZED CHEST RISE AND FALL.
--- NOTE | 2020-01-25 15:25 | NUR ---
PT C/O STOMACH DISCOMFORT. NON-TENDER ON PALPATION AND BOWEL TONES HYPERACTIVE. PT REQUESTING ROLAIDS OR TUMS. MAALOX ORDERED PER NIO. AWAITING PHARMACY TO VERIFY.
--- NOTE | 2020-01-25 15:53 | NUR ---
UNABLE TO REACH SHANE FOR DISCHARGE PLAN VIA PHONE AND STAFF STATES SHE HAS NOT COME IN YET TODAY. PLAN AT THIS TIME IS FOR PATIENT TO RETURN TO [facility] AT DISCHARGE UNLESS THEY STATE OTHERWISE. NO KNOWN BARRIERS TO THAT AT THIS TIME.
--- NOTE | 2020-01-25 15:54 | NUR ---
PT GIVEN MAALOX FOR STOMACH DISCOMFORT. ALSO REQUESTED PAIN MEDICATION. HE TAKES 10 MG OXYCODONE BID FOR CHRONIC PAIN, WHICH HE WAS GIVEN. TURNED TO LEFT SIDE TO OFF-LOAD. REDDENED AREA ON COCCYX CLEANSE AND ALLEVYN CHANGED. PT HAD BM PRIOR TO DRSG CHANGE. DRSG ON LEFT UPPER BACK REMOVED AND WOUND CLEANSED, NEW ALLEVYN PLACED. PICTURES TAKEN OF ALL WOUNDS, AND PLACED IN CHART.
--- NOTE | 2020-01-25 17:15 | NUR ---
PT VSS. PT'S HEADACHE AND JOINT PAIN RELIEVED BY OXYCODONE. LUNG SOUNDS DIM IN JULIANE AND BLL. PT HAS REMAINED AFEBRILE THIS SHIFT. OCCASIONALLY FORGETFUL ON CURRENT EVENTS. PT STILL ON BED REST D/T WEAKNESS. A&D APPLIED TO REDDENED GROIN. CATHETER CARE DONE THIS MORNING AND AFTERNOON. BOTH IV'S STILL PATENT. ABX INFUSING. INQUIRED ABOUT PT'S SLEEP APNEA AND IF HE USES A CPAP/BIPAP AT HOME. PT REPORT'S HE HAD A SLEEP STUDY DONE APPROX 10 YEARS AGO AND WAS USING A CPAP, BUT HAS REFUSED TO USE IT FOR THE LAST SEVERAL YEAR. HE SAID HE MIGHT CONSIDER USING IT IF HE RECEIVED A NEW MACHINE. PT HAS BEEN EATING AND DRINKING WELL. URINE OUTPUT HAS BEEN SUFFICIENT, CLEAR AND YELLOW. MONSIVAIS LEFT IN PLACE D/T REDDENED GROIN AREA AND RISK FOR SKIN BREAKDOWN. DR. RAGSDALE VERBALIZED THIS MORNING STAFF CAN KEEP IN PLACE PT WILL TOLERATE. PT'S UP TO VISIT. PT EATING DINNER.
--- NOTE | 2020-01-25 19:15 | NUR ---
Report received, orders acknowledged. Patient sitting up in bed watching tv, waves at nursing staff from window.
--- NOTE | 2020-01-25 20:00 | NUR ---
Patient sitting up in bed watching tv. Vital signs taken, assessment complete. PM medications given. Patient reports feeling nauseous with 8/10 abdominal pain. PRN zofran and 5mg of oxycodone given. IV abx hung and infusing at 250 mls/hr. Patient readjusted in bed for comfort with pillows underneath both hips. Miller emptied of 325 mls of yellow urine.
--- NOTE | 2020-01-25 20:30 | NUR ---
Patient begins reporting burning in the IV site with abx infusing. Abx paused, IV site examined. Swelling around IV site noted with small lump formed. Patient reports pain of 8/10 in that area. New IV site started, IV abx now infusing at 125 mls/hr into that new line. Warm compress applied to swollen IV site. Within five minutes, swelling is visibly reduced in upper LFA site. Called Dr. Cary to notify him of IV infiltration. No new orders acknowledged. Continue with plan of care and monitor the infiltrated site.
--- NOTE | 2020-01-25 22:16 | PATH ---
[facility] [address] [place], [place] [address] Signed ORDERING PHYSICIAN: Romulo Cleary MD PATIENT NAME: SAROJ AMEZQUITA GENDER: M : 1945 Prior History: No cases found. SPECIMEN(S): MOLECULAR PATHOLOGY RESULTS: SARS-CoV-2 Not Detected ADDITIONAL NOTES.: The [place] Fusion SARS-CoV-2 Assay is a multiplex real-time PCR (RT-PCR) in vitro diagnostic test intended for the qualitative detection of RNA from SARS-CoV-2 from individuals who meet COVID-19 clinical and/or epidemiological criteria. In general, SARS-CoV-2 RNA can be detected during the acute phase of infection. Positive results indicate the presence of SARS-CoV-2 RNA. Clinical correlation with patient history and other diagnostic information is necessary to determine patient infection status. Positive results do not rule out bacterial infection or co-infection with other viruses. Negative results do not preclude SARS-CoV-2 infection and should not be used as the sole basis for patient management decisions. Negative results must be combined with other clinical observations, patient history, and epidemiological information. The [place] Fusion SARS-CoV-2 Assay is not yet approved or cleared by the [place] FDA. When there are no FDA-approved or cleared tests available, and other criteria are met, FDA can make tests available under an emergency access mechanism called an Emergency Use Authorization (EUA). The EUA for this test is supported by the [place] of Health and Human Service's (HHS's) declaration that circumstances exist to justify the emergency use of in vitro diagnostics for the detection and/or diagnosis of the virus that causes COVID-19. This EUA will remain in effect for the duration of the COVID-19 declaration justifying emergency of IVDs, unless it is terminated or revoked by FDA, after which the test may no longer be used. The [place] Fusion SARS-CoV-2 Assay is for use only under EUA PATIENT NAME: SAROJ AMEZQUITA PATHOLOGY DATE OF : 49 REPORT #: [id number] PHYSICIAN: GENA DIAZ PCP: ROSLYN JONES MD REPORT IS CONFIDENTIAL AND NOT TO BE RELEASED WITHOUT AUTHORIZATION [facility] [address] [place] [id number] Signed in laboratories certified under the Clinical Laboratory Improvement Amendments of 1988 (CLIA) to perform high complexity tests. [facility] is certified under CLIA to perform high complexity clinical laboratory testing. PERFORMING LABORATORY.: Molecular testing was performed by [facility] [address] [place], [place] [address] [address] (Knitting Machine Mechanic: Robin Rivers D.O.; CLIA#: [id number]) Diagnostician: System Interface Pathologist Electronically Signed 01/25/2020 Copies: ~ PATIENT NAME: SAROJ AMEZQUITA PATHOLOGY DATE OF : 49 REPORT #: [id number] PHYSICIAN: GENA DIAZ PCP: ROSLYN JONES MD REPORT IS CONFIDENTIAL AND NOT TO BE RELEASED WITHOUT AUTHORIZATION
--- NOTE | 2020-01-25 22:30 | NUR ---
Patient laying in bed watching tv. Reports previous pain in abdomen now a 1/10 after prn medications. Denies pain in right forearm, states the burning sensation is "barely there now." Swelling is notably reduced in right forearm. Will continue to monitor. Warm compress in place. IV cefepime hung and infusing at 25 mls/hr. IV azithromycin complete. Covid results back, patient is covid negative. Patient informed and expresses relief at results. Denies any needs, call light within reach.
--- NOTE | 2020-01-25 23:38 | NUR ---
Patient reports back feels sweaty and itchy, cold cloth applied. Patient reports relief. Small BM produced, new attends and draw sheet placed. Patient adjusted in bed with pillows underneath left hip and back for comfort. Denies pain or burning in right forearm, no visible swelling noted at former IV site. 1LNC in place, SpO2 ranging from 92-97%. Will place patient on bipap soon while sleeping. Patient continues to watch tv, denies needs. Call light within reach.
--- NOTE | 2020-01-26 00:20 | NUR ---
Patient laying in bed watching tv. 1LNC in place, SpO2 ranging from 92-97%. Reports headache with a pain of 4/10, prn acetaminophen given. Patient denies further needs, call light within reach.
--- NOTE | 2020-01-26 01:34 | NUR ---
Patient laying in bed watching tv. Bipap put in place at 35% FiO2. SpO2 of 100% on bipap. Patient encouraged to sleep to have energy for tomorrows activities. TV turned off, patient closes eyes. Call light within reach.
--- NOTE | 2020-01-26 04:26 | NUR ---
Patient sleeping in bed, respirations even and unlabored. 1LNC in place. Call light within reach.
--- NOTE | 2020-01-26 04:43 | NUR ---
Patient requests a warm blanket, which is provided. Denies any further needs, call light within reach.
--- NOTE | 2020-01-26 05:05 | NUR ---
Patient sleeping in bed with 1LNC in place. Desaturates to 81% and does not rise. Bipap put in place, SpO2 climbs to 100%. Call light within reach.
--- NOTE | 2020-01-26 06:25 | NUR ---
Patient sleeping in bed with bipap in place, SpO2 in the upper 90's. IV sites flush. No swelling noted in right upper forearm. IV abx hung and infusing at 25 mls/hr. Miller emptied of 225 mls of yellow urine. Call light within reach.
--- NOTE | 2020-01-26 07:54 | NUR ---
report received from Carmen RN's. Pt did not tolerate bipap well last night. On 1 L NC and awake and alert this morning and denying pain or nausea. Requesting breakfast. Pt remains in bed on a q2h turn schedule. Watching television with call light within reach.
--- NOTE | 2020-01-26 08:58 | NUR ---
PT EATING DRINKING WELL. ENCOURAGED BY STAFF TO GET UP TO CHAIR THIS MORNING BUT IS REFUSING, SAYING HE'S NOT READY FOR THAT YET. PT ALSO REFUSING BED BATH, WILL TRY AGAIN LATER THIS MORNING.
--- NOTE | 2020-01-26 09:20 | NUR ---
COSTUMER, ANIA NOTIFIED STAFF OF TRANSFER OF PT TO MED SURG. REPORT CALLED TO MS ELLIOT VELEZ. PT RESTING IN BED WATCHING TELEVISION. CALL LIGHT WITHIN REACH. AWAITING TRANSFER ORDER FROM
--- NOTE | 2020-01-26 12:10 | NUR ---
PT HAD SMALL, SOFT BOWEL MOVEMENT. BED BATH ACCEPTED AND FULL LINEN CHANGE DONE. DRESSINGS TO LEFT UPPER BACK, FOREARM, AND UPPER RIGHT WATSON CHANGED. DR. VASQUEZ ASSESSED AND DRAINED BOIL ON LEFT UPPER BACK. BG 203, 3 UNITS OF HUMALOG GIVEN AND RESTARTED PT ON 10 UNITS OF LANTUS DAILY, ALSO GIVEN. LUNCH ORDERED AND WILL BE SENT TO MED-SURG ROOM. MONSIVAIS EMPTIED OF 275 MLS OF CLEAR YELLOW URINE. CATHETER CARE DONE. NEW MEDS ACKNOWLEDGED AND GIVEN WELL. PT TRANSFERRED TO MED-SURG, AGUSTIN RN HAS ASSUMED CARE.
--- NOTE | 2020-01-26 13:00 | NUR ---
THIS RN IN PTS ROOM PER PT REQUEST TO ASSIST PT TO SET UP HIS LUNCH TRAY TO BE IN REACH. PT HAS MINIMAL ABILITY TO MOVE LEFT HAND DUE TO A RESIDUAL WEAKNESS FROM A STROKE
--- NOTE | 2020-01-26 15:00 | NUR ---
THIS RN IN PTS ROOM TO GIVE PT AFTERNOON MEDS AND DO AFTERNOON ASSESSMENT. PT STATES THAT HE HAS NO PAIN OR HAS ANY WORRIES AT THIS TIME. PT ABLE TO ROLL AND ASSIT THIS RN TO PLACE CREAM ON HIS OPEN, NEWLY DRAINED BOIL ON LEFT SHOULDER. ALL WOUNDS ARE CLEAN/DRY/INTACT
--- NOTE | 2020-01-26 19:27 | NUR ---
awake, watchng tv, o2 in place, no sob, multiple allevyns in place over body, f/c patent, corrine dresing R foot, no c/o pain , fluids and call light at hands reach
--- NOTE | 2020-01-26 20:46 | NUR ---
SENIOR TECHNICAL PROJECT MANAGER ROUNDING NOTE. PT RESTING IN BED WATCHING TV. REPORTS HEADACHE, WOULD LIKE PRN PAIN MEDICATION. PRIMARY RN NOTIFIED. PT DENIES FURTHER QUESTIONS OR CONCERNTS. WHITE BOARD UDPATED. CALL LIGHT IN REACH.
--- NOTE | 2020-01-27 01:08 | NUR ---
O2 1L NC in place, hob elevated to his comofrt, eyes closed, no resp distress noted, f/c patent, dressing in place LE elevated
--- NOTE | 2020-01-27 06:02 | NUR ---
Pt has slepft off and on this shift. On 1LNC, lungs dim, no sob with exertion. L sided residual weakness, L hand contacture, generalized edema, multiple allevyn dressings over back, arms and legs, KELSEY dressing R foot, skin scaly,dry, elevated with pillows. Penis and scrotum red and edematous, skin care done. barrier cream applied, Incontinent of smear of bm, f/c draining QS yellow urine with strong odor, Pt coop. helps with turning, Repositioned as he favors Laying on L side. Toleraing diabetic diet well, CBG was 170 and received 1units ss Insulin. Alert, oriented, speech clear, C/o h/a earlier received Tylenol, effective, uses call light appropriately
--- NOTE | 2020-01-27 07:47 | NUR ---
THIS RN RECEIVED REPORT FROM CELSA ZARATE. PT APPEARS TO BE RESTING COMFORTABLY AT THIS TIME WITH RESPIRATIONS NOTED.
--- NOTE | 2020-01-27 07:49 | NUR ---
PATIENT AWAKE IN ROOM. WASHED FACE. WHITE BOARD UPDATED. CALL LIGHT WITHIN REACH NO FUTHER NEEDS AT THIS TIME.
--- NOTE | 2020-01-27 09:47 | NUR ---
PATIENT I&O'S DOCUMENTED. NURSE DOCUMENTED VITAL SIGNS SAID TO NOT REDO THEM. CALL LIGHT WITHIN REACH
--- NOTE | 2020-01-27 10:12 | NUR ---
NOTIFIED WBT CHARGE NURSE OF PLAN TO DISCHARGE PATIENT BACK TODAY.
[2020-01-27] MEDS ORDERED: CEFPODOXIME PR200 MG PO (11:25)
[2020-01-27] MEDS ORDERED: BASAGLAR K100 UNIT/1 SUB-Q (11:27)
[2020-01-27] MEDS ORDERED: MUPIROCIN22 GM TOP (11:34)
== END 2020-01-27 12:45 | disposition home or self-care (01) | DRG 177 ==
LOC: ED 11:45 → CCU 18:05 → MS 01-26 12:10
PROVIDERS: ADMIT Internal Medicine; ATTEND Internal Medicine
PROC: 5A09357 Assistance with Respiratory Ventilation, Less than 24 Consecutive Hours, Continuous Positive Airway Pressure (ICD-10-PCS; principal; 2020-01-24)
DX: J15.6 Pneumonia due to other Gram-negative bacteria (principal); J96.01 Acute respiratory failure with hypoxia; G93.41 Metabolic encephalopathy; I50.22 Chronic systolic (congestive) heart failure; I69.354 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cting left non-dominant side; Z20.828 Contact with and (suspected) exposure to other viral communicable diseases; L02.232 Carbuncle of back [any part, except buttock and flank]; E87.5 Hyperkalemia; E11.51 Type 2 diabetes mellitus with diabetic peripheral angiopathy without gangrene; E11.42 Type 2 diabetes mellitus with diabetic polyneuropathy; E78.5 Hyperlipidemia, unspecified; G89.4 Chronic pain syndrome; K21.9 Gastro-esophageal reflux disease without esophagitis; N40.0 Benign prostatic hyperplasia without lower urinary tract symptoms; G47.33 Obstructive sleep apnea (adult) (pediatric); G47.36 Sleep related hypoventilation in conditions classified elsewhere; D50.9 Iron deficiency anemia, unspecified; M54.9 Dorsalgia, unspecified; S81.801A Unspecified open wound, right lower leg, initial encounter; Z87.820 Personal history of traumatic brain injury; Z79.1 Long term (current) use of non-steroidal anti-inflammatories (NSAID); Z79.02 Long term (current) use of antithrombotics/antiplatelets; Z79.82 Long term (current) use of aspirin; Z79.4 Long term (current) use of insulin; Z79.891 Long term (current) use of opiate analgesic; Z79.899 Other long term (current) drug therapy
CPT/HCPCS: 36415; 51701; 51702; 70450; 71045; 72125; 80048; 80053; 81001; 83605; 83735; 83880; 84484; 85025; 93005; 93010; 94660; 96368; 99285-25; C9113; C9803; J0456; J0610; J0692; J0696; J1650; J1815; J7030; J7060; J7121

== ENCOUNTER 2020-02-11 14:05 | Inpatient (IN) | payer MEDICARE ==
[~2020-02-11] VITALS: Ht 177.8 cm; Wt 94.2 kg
[~2020-02-11 14:05] MED LIST changes: +ALDACTONE25 MG PO; +ALLERGY EYE DRO15 ML OU; +AMITRIPTYLINE H50 MG PO; +BASAGLAR K100 UNIT/1 SUB-Q; +CEFPODOXIME PR200 MG PO; +COLACE100 MG PO; +FENOFIBRATE160 MG PO; +LEVOTHYROXINE125 MCG PO; +LOSARTAN POTASS25 MG PO; +MUPIROCIN22 GM TOP; +POLYETHYLENE GLY1 GM PO; +VITAMIN D3125 MC2 PO
--- OUTSIDE RECORDS SUMMARY | 2020-02-11 14:08 | XMS ---
PreManage Notification: SAROJ AMEZQUITA Security Tester Armature Or Fields Events No recent Security Events currently on file CRITERIA MET - History of Sepsis Dx - PDMP - [facility] - 2 Visits in 30 Days CARE PROVIDERS Name Unknown Snf Facility Current PHONE: [phone] [facility] 01/08/2019-Current PHONE: [phone] [facility] Current PHONE: [phone] Name Unknown Clinic/Center: [facility] 03/27/2019-Current PHONE: [phone] Jalen has no Care Guidelines for this patient. Care History Medical/Surgical 03/27/2019 [facility] - PATIENT HAS PCP-DR ROSLYN JONES AT THE [facility] HIS PCP- - LAST VISIT WITH DR JONES WAS ON 02/05/19 AND PT WAS SCHEDULED FOR PATIENT- PATIENT WAS SUPPOSED TO BE SEEN ON 03/22/2019 FOR PT - PROVIDER DOES NOT HAVE RECORDS. - PATIENT RECENTLY HAD A [facility]EC DONE BY THE [facility] PROVIDER IN OCTOBER 2018. - [facility] WILL HAVE ALL RECENT ED RECORDS SENT TO PCP AT THE [facility]-PATIENT DOES NOT HAVE DR [facility] PCP. Jovany VISIT COUNT (12 MO.) 10 [facility] TOTAL 10 NOTE: Visits indicate total known visits. ED/UCC VISIT TRACKING (12 MO.) 02/11/2020 14:06 [facility] [place] TYPE: Emergency COMPLAINT: - POSSIBLE GI 01/24/2020 11:46 [facility] [place] TYPE: Emergency COMPLAINT: - FALL 08/23/2019 08:28 [facility] [place] TYPE: Emergency COMPLAINT: - MULTIPLE COMPLAINTS DIAGNOSES: - MCC (current) use of insulin - Anemia, unspecified - Acute pancreatitis without necrosis or infection, unspecified - Type 2 diabetes mellitus with diabetic polyneuropathy - Exposure to other specified factors, initial encounter - Constipation, unspecified - senior animal trainer (current) use of aspirin - Unspecified abdominal pain - Unspecified fracture of T7-T8 vertebra, initial encounter for closed fracture - senior animal trainer (current) use of antithrombotics/antiplatelets - Other alf (current) drug therapy 08/08/2019 14:55 [facility] [place] TYPE: Emergency COMPLAINT: - SEPSIS 05/18/2019 15:[address] [facility] [place] TYPE: Emergency COMPLAINT: - ARM SWELLING DIAGNOSES: - Presence of cardiac and vascular implant and graft, unspecified - senior animal trainer (current) use of insulin - Personal history of nicotine dependence - Post-traumatic stress disorder, unspecified - Other application security specialist (current) drug therapy - Other specified soft tissue disorders - Pain in right upper arm - Type 2 diabetes mellitus with diabetic polyneuropathy - MCC (current) use of aspirin 04/24/2019 13:13 [facility] [...] cerebral infarction without residual deficits - Other application security specialist (current) drug therapy - Personal history of nicotine dependence - MCC (current) use of insulin - Dyspnea, unspecified - Acute on chronic systolic (congestive) heart failure - Type 2 diabetes mellitus with diabetic polyneuropathy 03/28/2019 09:43 [facility] [place] TYPE: Emergency COMPLAINT: - ALTERED LOC 03/22/2019 18:35 [facility] [place] TYPE: Emergency COMPLAINT: - SOB DIAGNOSES: - Shortness of breath - Heart failure, unspecified - Other application security specialist (current) drug therapy - Type 2 diabetes mellitus with diabetic polyneuropathy - Personal history of nicotine dependence 03/16/2019 17:57 [facility] [place] TYPE: Emergency COMPLAINT: - DRESSING CHANGE DIAGNOSES: - Type 2 diabetes mellitus with diabetic polyneuropathy - Acquired absence of left foot - Other application security specialist (current) drug therapy - Non-pressure chronic ulcer of other part of left foot with unspecified severity - Type 2 diabetes mellitus with foot ulcer - senior animal trainer (current) use of insulin - Personal history of nicotine dependence - Non-pressure chronic ulcer of other part of right foot with unspecified severity - Encounter for change or removal of surgical wound dressing - MCC (current) use of aspirin INPATIENT VISIT TRACKING (12 MO.) 01/24/2020 18:05 [facility] [place] TYPE: Medical Surgical COMPLAINT: - ACUTE HYPOXIC RESPIRATORY FAILURE DIAGNOSES: - Chronic systolic (congestive) heart failure - Carbuncle of back [any part, except buttock] - Iron deficiency anemia, unspecified - Hyperlipidemia, unspecified - Gastro-esophageal reflux disease without esophagitis - Dorsalgia, unspecified - MCC (current) use of insulin - Personal history of traumatic brain injury - Unspecified open wound, right lower leg, initial encounter - 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cting left non-dominant side - Acute respiratory failure with hypoxia - Other alf (current) drug therapy - Chronic pain syndrome - 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 - MCC (current) use of opiate analgesic - Type 2 diabetes mellitus with diabetic peripheral angiopathy without gangrene - Contact with and (suspected) exposure to other viral communicable diseases - Metabolic encephalopathy - Obstructive sleep apnea (adult) (pediatric) - Type 2 diabetes mellitus with diabetic polyneuropathy - MCC (current) use of non-steroidal anti-inflammatories (NSAID) - Benign prostatic hyperplasia without lower urinary tract symptoms - Hyperkalemia - Pneumonia due to other Gram-negative bacteria - MCC (current) use of aspirin - senior animal trainer (current) use of antithrombotics/antiplatelets [facility] DIAGNOSES: - Obesity, [...] - Fever, unspecified - Hypoxemia 04/06/2019 01:23 [facility] TYPE: Vascular Surgery DIAGNOSES: - Other osteomyelitis, ankle and foot - Other chronic osteomyelitis, unspecified site - Bacterial infection, unspecified - senior animal trainer (current) use of insulin - Essential (primary) [...] Personal history of traumatic brain injury - senior animal trainer (current) use of insulin - Low back pain - Adverse effect of diagnostic agents, initial encounter - Low back pain - senior animal trainer (current) use of aspirin - Acute respiratory [...] midfoot with necrosis of muscle - Other application security specialist (current) drug therapy - Bed confinement status [...] midfoot with necrosis of muscle - Other application security specialist (current) drug therapy - Type 2 diabetes mellitus with diabetic peripheral angiopathy without gangrene - MCC (current) use of insulin - Severe sepsis with septic shock - Personal history of nicotine dependence [email or web address]
[2020-02-12] MEDS ORDERED: ARTIFICIAL TEAR15 M3 OU (11:24)
[2020-02-12] MEDS ORDERED: BASAGLAR K100 UNIT/1 SUB-Q (11:45)
--- NOTE | 2020-02-13 06:13 | CONS ---
[facility] [address], [place] [address] Signed DATE OF CONSULTATION: 02/11/2020 DATE OF CONSULTATION: 02/11/2020 REFERRING PHYSICIAN: Dr. Cary CHIEF COMPLAINT: Nausea and vomiting. HISTORY OF PRESENT ILLNESS: Saroj is a 75-year-old rather significantly disabled and nonambulatory gentleman who has been vomiting since yesterday. Apparently, there has been some coffee-grounds emesis. He is having lower abdominal pain, mostly on the right. He has not had a bowel movement in 2 days. He has been at [facility] because of a nonhealing diabetic foot ulcer. He has had a stroke in the past. He does have hemiplegia, but he does walk some, but not recently with his foot ulcer. He said he has not had a bowel movement in 2 days. PAST MEDICAL HISTORY: Stroke in 2017, herniated disk, closed head injury, posttraumatic stress disorder, scoliosis, diabetic peripheral neuropathy, hyperlipidemia, gastroesophageal reflux disease, type 2 diabetes, hemiplegia, osteomyelitis, chronic pain, hypertension, congestive heart failure, respiratory failure, peripheral arterial disease, acute kidney injury, myocardial infarction, anemia, T7 and 8 fracture, L3 fracture, urinary retention, colonic polyps and pneumonia. PAST SURGICAL HISTORY: Includes peripheral vascular grafts and stents, abdominal hernia, appendectomy, upper endoscopy, colonoscopy in 2014 and left 3rd toe amputation along with a rhinoplasty. SOCIAL HISTORY: He quit smoking. He does not drink. He normally would live with his Maite at [phone], but is currently at [facility]. He uses a walker to ambulate. He does not drive. Dr. Duarte Ceballos is his feed grinder. Dr. Jamar Jones is his primary care provider with the [facility] in [place], [place]. I spoke with his and she did maintain him as a full code. FAMILY HISTORY: Nothing significant uncovered. REVIEW OF SYSTEMS: Electronically Signed By: LUIS SANDS MD 02/13/20 0613 PATIENT NAME: SAROJ AMEZQUITA CONSULTATION DATE OF : 49 REPORT #: [id number] PHYSICIAN: LUIS SANDS MD PCP: JAMAR JONES MD REPORT IS CONFIDENTIAL AND NOT TO BE RELEASED WITHOUT AUTHORIZATION [address] [address] Signed He had 10 systems reviewed and he was unable to add anything other than what we have reviewed in the medical records. ALLERGIES: None. MEDICATIONS: 1. Cefpodoxime. 2. Diclofenac. 3. Potassium chloride. 4. Losartan. 5. Polyethylene glycol. 6. Senna. 7. Aspercreme. 8. Allergy eyedrops. 9. Colace. 10. Torsemide. 11. Insulin. 12. Mupirocin. 13. Aspirin. Atorvastatin. 14. Plavix. 15. Carvedilol. 16. Cymbalta. 17. Flomax. 18. Gabapentin. 19. Tylenol. 20. Zofran. 21. Avodart. 22. Multivitamin. 23. Protonix. 24. Onglyza. 25. Artificial Tears. 26. Dulcolax. 27. Fleet's enemas. 28. Milk of magnesia. 29. Oxycodone. PHYSICAL EXAMINATION: VITAL SIGNS: Blood pressure 111/63, heart rate 80, respiratory rate 22, his temperature is 98.2 degrees. He is 5 feet 10 inches tall at 102 kg. GENERAL: Saroj is a 75-year-old gentleman, lying supine semi-recumbent in his ER bed watching TV. He does not appear systemically ill or toxic. He is alert, awake, and interactive. He seems to be very cooperative. LUNGS: Generally clear to auscultation bilaterally. Electronically Signed By: LUIS SANDS MD 02/13/20 0613 PATIENT NAME: SAROJ AMEZQUITA CONSULTATION DATE OF : 49 REPORT #: [id number] PHYSICIAN: LUIS SANDS MD PCP: JAMAR JONES MD REPORT IS CONFIDENTIAL AND NOT TO BE RELEASED WITHOUT AUTHORIZATION [facility] [address] [place] [id number] Signed HEART: Regular rate and rhythm. He may have a very quiet murmur. ABDOMEN: Moderately protuberant, but generally soft. He has some mild tenderness in the right lower quadrant. RECTAL: On digital rectal exam, he has moderate sphincter tone. We removed around 250 mL or so of soft brown pasty stool. LABORATORY DATA: His white blood count 19.4, hemoglobin 11.4, neutrophils 71, bands are 9. BUN 50, creatinine 1.31, CO2 is 41, glucose 242. Liver function tests are negative. Albumin 3.8, lipase 29,. COVID is pending. RADIOGRAPHIC STUDIES: CT scan of the abdomen and pelvis was performed and he has an enormous amount of fluid in the stomach with a little bit of air in the wall of the stomach and a large amount of stool burden in the colon and then he does have a little bit air possibly around the bottom of the rectum and wall. No free air in the abdomen. ASSESSMENT AND PLAN: Saroj is a 75-year-old significantly disabled gentleman with significant constipation and stool impaction with nausea, vomiting, and some pneumatosis in the stomach as well as the rectum. We have done a digital rectal exam and removed probably 250 mL or more of soft, pasty brown stool. I want to talk to our hospitalist currently, but our plan is to admit him with an NG tube or Miller catheter. He will be hydrated overnight and we will at least do a Dulcolax suppository tonight and a Fleet's enema. Once he is hydrated, we could consider more aggressive bowel prep. I also discussed this with his and she wants to maintain him a full code. I have reviewed this with Saroj. He has expressed understanding and agrees the above plan. Luis Sands MD ALB/MODL /[id number] cc: Jamar Jones MD Copies: JAMAR JONES MD Electronically Signed By: LUIS SANDS MD 02/13/20 0613 PATIENT NAME: SAROJ AMEZQUITA CONSULTATION DATE OF : 49 REPORT #: [id number] PHYSICIAN: LUIS SANDS MD PCP: JAMAR JONES MD REPORT IS CONFIDENTIAL AND NOT TO BE RELEASED WITHOUT AUTHORIZATION [facility] [address] [place], [place] [address] Signed ~ Electronically Signed By: LUIS SANDS MD 02/13/20 0613 PATIENT NAME: SAROJ AMEZQUITA CONSULTATION DATE OF : 49 REPORT #: [id number] PHYSICIAN: LUIS SANDS MD PCP: JAMAR JONES MD REPORT IS CONFIDENTIAL AND NOT TO BE RELEASED WITHOUT AUTHORIZATION
--- NOTE | 2020-02-15 08:50 | DS ---
[facility] [address] [place], [place] [address] Signed ADMISSION DATE: 02/11/2020 DISCHARGE DATE: 02/14/2020 FINAL DIAGNOSIS: Stool impaction. PROCEDURES: None. HISTORY OF PRESENT ILLNESS: Saroj is a 75-year-old significantly disabled gentleman with diabetes and a previous stroke and left hemiplegia. He has been at our local [facility]. His field automobile adjuster has been following for a foot ulcer as well. Unfortunately, he developed abdominal distention and had a bowel movement in 2 days. He started vomiting for 2 days and eventually had coffee-grounds emesis. He was brought to our local emergency room for evaluation. I was asked to see him urgently in the ER. We did his digital rectal exam and disimpacted around 250 mL to 350 mL of brown pasty stool. HOSPITAL COURSE: Saroj was admitted as above and hydrated, and we started him with suppositories and enemas. After we hydrated him, we were able to add on polyethylene glycol. He had a CT scan in the emergency room and he actually had submucosal air in the gastric wall as well as the rectum. His white count had been up at 19,000. He rapidly improved with multiple bowel movements and the white count gone down to 14,000. We have not repeated that as he has continued to improve clinically. At this point, he looks and feels much better. He is very talkative at this point, eating well and his abdominal exam is benign. He is completely soft, flat, nontender. No pain, whatsoever. He said he feels like himself and he said he was ready to be discharged. DISCHARGE PLANS AND MEDICATIONS: Saroj is going to go back to his extended care facility. We are not going to change any of his medications, weightbearing status, and so forth. He can follow up in my office as needed and he can continue his followup with his primary care provider as routinely scheduled. Of course, the field automobile adjuster will see him at the alf. If he has any concerns or questions, he can certainly talk to the staff at [facility], otherwise we are going to . He has expressed understanding and agrees above plan. Electronically Signed By: LUIS SANDS MD 02/15/20 0850 PATIENT NAME: SAROJ AMEZQUITA DISCHARGE SUMMARY DATE OF : 49 REPORT #: [id number] PHYSICIAN: LUIS SANDS MD PCP: ROSLYN JONES MD REPORT IS CONFIDENTIAL AND NOT TO BE RELEASED WITHOUT AUTHORIZATION [address] [address] Signed MD STELLA Maradiaga/HOLLI /[id number] cc: MD Luis Edgar MD Terrol Marshall, DPM Copies: ROSLYN JONES MD, ANDREW L MD MARSHALL, TERROL DPM ~ Electronically Signed By: LUIS SANDS MD 02/15/20 0850 PATIENT NAME: SAROJ AMEZQUITA DISCHARGE SUMMARY DATE OF : 49 REPORT #: [id number] PHYSICIAN: LUIS SANDS MD PCP: ROSLYN JONES MD REPORT IS CONFIDENTIAL AND NOT TO BE RELEASED WITHOUT AUTHORIZATION
== END 2020-02-14 11:50 | DRG 389 ==
LOC: ED 14:05 → MS 18:34
PROVIDERS: ADMIT Colon & Rectal Surgery; ATTEND Colon & Rectal Surgery
DX: K56.41 Fecal impaction (principal); I50.32 Chronic diastolic (congestive) heart failure; I69.354 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cting left non-dominant side; T40.605A Adverse effect of unspecified narcotics, initial encounter; Z20.828 Contact with and (suspected) exposure to other viral communicable diseases; E86.0 Dehydration; E11.621 Type 2 diabetes mellitus with foot ulcer; L97.509 Non-pressure chronic ulcer of other part of unspecified foot with unspecified severity; I25.10 Atherosclerotic heart disease of native coronary artery without angina pectoris; I11.0 Hypertensive heart disease with heart failure; E11.51 Type 2 diabetes mellitus with diabetic peripheral angiopathy without gangrene; G47.33 Obstructive sleep apnea (adult) (pediatric); N40.0 Benign prostatic hyperplasia without lower urinary tract symptoms; K21.9 Gastro-esophageal reflux disease without esophagitis; E78.5 Hyperlipidemia, unspecified; G89.4 Chronic pain syndrome; E11.42 Type 2 diabetes mellitus with diabetic polyneuropathy; Z91.19 Patient's noncompliance with other medical treatment and regimen; Z79.02 Long term (current) use of antithrombotics/antiplatelets; Z79.82 Long term (current) use of aspirin; Z79.4 Long term (current) use of insulin; Z79.899 Other long term (current) drug therapy
CPT/HCPCS: 36415; 71045; 74177; 80048; 80053; 81001; 83605; 83690; 83735; 84100; 84134; 85025; 99285-25; C9113; C9803; J1815; J2405; J2550; J7030; J7121; Q9967; U0003

== ENCOUNTER 2020-02-24 09:18 | Inpatient (IN) | payer MEDICARE ==
[~2020-02-24] VITALS: Ht 177.8 cm; Wt 102.0 kg
--- NOTE | ~2020-02-24 | DS ---
[facility] [address], [place] [address] Draft ADMISSION DATE: 02/24/2020 DISCHARGE DATE: 02/27/2020 REASON FOR ADMISSION: This morbidly obese 75-year-old white man is markedly debilitated and has been at [facility] for about a year. He is accompanied by his . The patient presented with abdominal distention, hypotension and was brought from the [facility] with severe decompensation. He had been hospitalized recently under the direction of Dr. Nasim Baig for fecal impaction, at which time he was noted to have a white count of 18,000. He had disimpaction in the emergency room, and generally recovered. He returns to the emergency room with a significant hypotension, tachycardia, and a white count of nearly 36,000. He is known to have congestive heart failure with ejection fraction of about 40%. He also has obstructive sleep apnea, diabetes type 2, hyperlipidemia, chronic pain syndrome, and multiple other problems including the right ankle wound, which is managed by a business machine operator. He is admitted for further evaluation and care. PERTINENT PHYSICAL EXAMINATION: GENERAL: Showed extremely large man looking with significant distress. VITAL SIGNS: Very poor with a systolic pressure variably between 70 and 130 with pulse about 69. HEENT: Mucous membranes reasonably moist. NECK: Trachea midline. CHEST: Shows diminished respiratory excursion. ABDOMEN: Markedly obese. There is marked tenderness in the right colon. EXTREMITIES: Edema of the lower extremities with a KELSEY wound dressing on the right leg. LABORATORY STUDIES: Showed white count of 35.9, hematocrit 31.5, platelets 292,000, band forms 2%. Lactic acid was 2.4, creatinine 2.06. HOSPITAL COURSE: Given that the CT scan was performed, which showed marked colonic distention and probable ongoing or worsened fecal impaction, he was admitted to my service. I directly admitted him to the Intensive Care Unit on pressors as well as aggressive fluid resuscitation. The right internal jugular catheter was placed upon presentation to the ICU as well. A medical consultation was obtained additionally. He had improvement with the aforementioned measures of broad-spectrum antibiotic, meropenem. PATIENT NAME: SAROJ AMEZQUITA DISCHARGE SUMMARY DATE OF : 49 REPORT #: [id number] PHYSICIAN: ANI SANTIAGO MD PCP: ROSLYN JONES MD REPORT IS CONFIDENTIAL AND NOT TO BE RELEASED WITHOUT AUTHORIZATION [facility] [address], [place] [address] Draft He was considered likely to have stercoral colitis as the underlying etiology of his sepsis, though admittedly he did have some left-sided lung atelectasis and fluid, which has been seen previously. Remarkably, he had improvement, was able to be weaned from his pressor agents. Hospitalist consultation allowed for manipulation of his insulin and other medical measures. Notably, his arterial blood gas showed significant CO2 retention and respiratory acidosis. This improved as his overall condition improved. He began having bowel movements and the nasogastric tube that was placed for decompression was able to be removed. He had progressive improvement. By the day of discharge, he is tolerating solid diet, has good control of his blood pressure and other functions. His discharge back to [facility] with main change of his insulin dosage and a plan for continued use of MiraLAX. Of note, several abdominal x-ray showed clearance of his abdominal and gaseous distention of the colon and presumptive clearance of his fecal impaction. Of note, rectal exam I performed at the outset showed no sign of obstructing neoplasm of the rectum. His stool at that time was soft. Discharge medications are listed . MD LILO Salazar/KRYAL /[id number] Copies: ~ PATIENT NAME: SAROJ AMEZQUITA DISCHARGE SUMMARY DATE OF : 49 REPORT #: [id number] PHYSICIAN: ANI SANTIAGO MD PCP: ROSLYN JONES MD REPORT IS CONFIDENTIAL AND NOT TO BE RELEASED WITHOUT AUTHORIZATION
[~2020-02-24 09:18] MED LIST changes: +COZAAR50 MG PO; -LOSARTAN POTASS25 MG PO
--- OUTSIDE RECORDS SUMMARY | 2020-02-24 09:22 | XMS ---
PreManage Notification: SAROJ AMEZQUITA Security Scoop Driver Events No recent Security Events currently on file CRITERIA MET - History of Sepsis Dx - PDMP - [facility] - 2 Visits in 30 Days CARE PROVIDERS Name [facility] Current PHONE: [phone] [facility] 01/08/2019-Current PHONE: [phone] [facility] Current PHONE: [phone] Name Unknown Clinic/Center: [facility] 03/27/2019-Current PHONE: [phone] Jalen has no Care Guidelines for this patient. Care History Medical/Surgical 03/27/2019 [facility] - PATIENT HAS PCP-DR ROSLYN JONES AT THE [facility] HIS PCP- - LAST VISIT WITH DR JONES WAS ON 02/05/19 AND PT WAS SCHEDULED FOR PATIENT- PATIENT WAS SUPPOSED TO BE SEEN ON 03/22/2019 FOR PT - PROVIDER DOES NOT HAVE RECORDS. - PATIENT RECENTLY HAD A GEC DONE BY THE [facility] PROVIDER IN OCTOBER 2018. - [facility] WILL HAVE ALL RECENT ED RECORDS SENT TO PCP AT THE [facility]-PATIENT DOES NOT HAVE DR CH[facility] PCP. Jovany VISIT COUNT (12 MO.) [address] [place] [address] TOTAL 11 NOTE: Visits indicate total known visits. ED/UCC VISIT TRACKING (12 MO.) 02/24/2020 09:19 [facility] TYPE: Emergency COMPLAINT: - ABDOMINAL 02/11/2020 14:06 [facility] TYPE: Emergency COMPLAINT: - POSSIBLE GI 01/24/2020 11:46 [facility] TYPE: Emergency COMPLAINT: - FALL 08/23/2019 08:28 [facility] TYPE: Emergency COMPLAINT: - MULTIPLE COMPLAINTS DIAGNOSES: - senior living (current) use of insulin - Anemia, unspecified - Acute pancreatitis without necrosis or infection, unspecified - Type 2 diabetes mellitus with diabetic polyneuropathy - Exposure to other specified factors, initial encounter - Constipation, unspecified - terminal worker (current) use of aspirin - Unspecified abdominal pain - Unspecified fracture of T7-T8 vertebra, initial encounter for closed fracture - terminal worker (current) use of antithrombotics/antiplatelets - Other supervisor intermediates (current) drug therapy 08/08/2019 14:55 [facility] TYPE: Emergency COMPLAINT: - SEPSIS 05/18/2019 15:02 [facility] TYPE: Emergency COMPLAINT: - ARM SWELLING DIAGNOSES: - Presence of cardiac and vascular implant and graft, unspecified - senior living (current) use of insulin - Personal history of nicotine dependence - Post-traumatic stress disorder, unspecified - Other correction (current) drug therapy - Other specified soft tissue disorders - Pain in right upper arm - Type 2 diabetes mellitus with diabetic polyneuropathy - terminal worker (current) use of aspirin 04/24/2019 13:13 [facility] [...] specified abnormal findings of blood chemistry - terminal worker (current) use of aspirin - Personal history of transient ischemic attack (TIA), 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 deficits - Other correction (current) drug therapy - Personal history of nicotine dependence - senior living (current) use of insulin - Dyspnea, unspecified - Acute on chronic systolic (congestive) heart failure - Type 2 diabetes mellitus with diabetic polyneuropathy 03/28/2019 09:43 [facility] TYPE: Emergency COMPLAINT: - ALTERED LOC 03/22/2019 18:35 [facility] TYPE: Emergency COMPLAINT: - SOB DIAGNOSES: - Shortness of breath - Heart failure, unspecified - Other supervisor intermediates (current) drug therapy - Type 2 diabetes mellitus with diabetic polyneuropathy - Personal history of nicotine dependence 03/16/2019 17:57 [facility] TYPE: Emergency COMPLAINT: - DRESSING CHANGE DIAGNOSES: - Type 2 diabetes mellitus with diabetic polyneuropathy - Acquired absence of left foot - Other correction (current) drug therapy - Non-pressure chronic ulcer of other part of left foot with unspecified severity - Type 2 diabetes mellitus with foot ulcer - senior living (current) use of insulin - Personal history of nicotine dependence - Non-pressure chronic ulcer of other part of right foot with unspecified severity - Encounter for change or removal of surgical wound dressing - senior living (current) use of aspirin INPATIENT VISIT TRACKING (12 MO.) 02/11/2020 18:34 [facility] TYPE: Medical Surgical COMPLAINT: - STOOL IMPACTION DIAGNOSES: - 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cting left non-dominant side - Gastro-esophageal reflux disease without esophagitis - Hyperlipidemia, unspecified - Hypertensive heart disease with heart failure - Non-pressure chronic ulcer of other part of unspecified foot with unspecified severity - Gastro-esophageal reflux disease without esophagitis - Non-pressure chronic ulcer of other part of unspecified foot with unspecified severity - Obstructive sleep apnea (adult) (pediatric) - Adverse effect of unspecified narcotics, initial encounter - Chronic diastolic (congestive) heart failure - senior living (current) use of antithrombotics/antiplatelets - Hypertensive heart disease with heart failure - Obstructive sleep apnea (adult) (pediatric) - Fecal impaction - Benign prostatic hyperplasia without lower urinary tract symptoms - terminal worker (current) use of insulin - Hyperlipidemia, unspecified - terminal worker (current) use of aspirin - Type 2 diabetes mellitus with diabetic peripheral angiopathy without gangrene - Chronic diastolic (congestive) heart failure - senior living (current) use of aspirin - Type 2 diabetes mellitus with foot ulcer - Adverse effect of unspecified narcotics, initial encounter - Type 2 diabetes mellitus with diabetic peripheral angiopathy without gangrene - Contact with and (suspected) exposure to other viral communicable diseases - 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cting left non-dominant side - Atherosclerotic heart disease of [place] coronary artery without angina pectoris - Other correction (current) drug therapy - Other supervisor intermediates (current) drug therapy - Benign prostatic hyperplasia without lower urinary tract symptoms - senior living (current) use of antithrombotics/antiplatelets - Patient's noncompliance with other medical treatment and regimen - Chronic pain syndrome - Contact with and (suspected) exposure to other viral communicable diseases - Dehydration - Type 2 diabetes mellitus with diabetic polyneuropathy - Fecal impaction - senior living (current) use of insulin - Dehydration - Type 2 diabetes mellitus with foot ulcer - Type 2 diabetes mellitus with diabetic polyneuropathy - Patient's noncompliance with other medical treatment and regimen - Vomiting, unspecified - Chronic pain syndrome - Atherosclerotic heart disease of [place] coronary artery without angina pectoris 01/24/2020 18:05 [facility] TYPE: Medical Surgical COMPLAINT: - ACUTE HYPOXIC RESPIRATORY FAILURE DIAGNOSES: - Chronic systolic (congestive) heart failure - Carbuncle of back [any part, except buttock] - Iron deficiency anemia, unspecified - Hyperlipidemia, unspecified - Gastro-esophageal reflux disease without esophagitis - Dorsalgia, unspecified - terminal worker (current) use of insulin - Personal history of traumatic brain injury - Unspecified open wound, right lower leg, initial encounter - 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cting left non-dominant side - Acute respiratory failure with hypoxia - Other supervisor intermediates (current) drug therapy - Chronic pain syndrome - 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 - senior living (current) use of opiate analgesic - Type 2 diabetes mellitus with diabetic peripheral angiopathy without gangrene - Contact with and (suspected) exposure to other viral communicable diseases - Metabolic encephalopathy - Obstructive sleep apnea (adult) (pediatric) - Type 2 diabetes mellitus with diabetic polyneuropathy - terminal worker (current) use of non-steroidal anti-inflammatories (NSAID) - Benign prostatic hyperplasia without lower urinary tract symptoms - Hyperkalemia - Pneumonia due to other Gram-negative bacteria - senior living (current) use of aspirin - senior living (current) use of antithrombotics/antiplatelets [facility] DIAGNOSES: - Obesity, unspecified - Wedge compression fracture of T7-T8 vertebra, subsequent encounter for fracture with routine healing - compression fracture 08/08/2019 14:56 [facility] TYPE: Observation [...] - Fever, unspecified - Hypoxemia 04/06/2019 01:23 [facility] TYPE: Vascular Surgery DIAGNOSES: - Other osteomyelitis, ankle and foot - Other chronic osteomyelitis, unspecified site - Bacterial infection, unspecified - senior living (current) use of insulin - Essential (primary) hypertension - NSTEMI - Peripheral vascular disease, unspecified - Chest pain, unspecified - Hemiplegia, unspecified affecting left nondominant side - Osteomyelitis, unspecified - Other acute osteomyelitis, right ankle and foot - Gangrene, not elsewhere classified - Methicillin resistant Staphylococcus aureus infection, unspecified site - Type 2 diabetes mellitus without complications 03/28/2019 15:00 [facility] TYPE: Medical Surgical COMPLAINT: - ACUTE RESP [...] history of traumatic brain injury - senior living (current) use of insulin - Low back pain - Adverse effect of diagnostic agents, initial encounter - Low back pain - senior living (current) use of aspirin - Acute respiratory failure with hypoxia - Sepsis due to streptococcus, group B - Bed confinement status - Unspecified place in hospital as the place of occurrence of the external cause - Personal history of traumatic brain injury - Hypertensive heart disease with heart failure - terminal worker (current) use of aspirin - Non-pressure chronic [...] midfoot with necrosis of muscle - Other correction (current) drug therapy - Bed confinement status [...] midfoot with necrosis of muscle - Other correction (current) drug therapy - Type 2 diabetes mellitus with diabetic peripheral angiopathy without gangrene - terminal worker (current) use of insulin - Severe sepsis with septic shock - Personal history of nicotine dependence [email or web address]
--- NOTE | 2020-02-24 14:10 | NUR ---
REPORT RECIEVED FORM ED. PATIENT ARRIVED TO CCU ROOM 128 VIA STRETCHER. DX SEPSIS POSSIBLE R/T BOWEL OBSTRUCTION. PATIENT HAD TWO LIQUID STOOL WHILE IN ED. UPON GETTING PATIENT TO BED, DR. SANTIAGO HERE TO PLACE RIJ. PATIENT IS ABLE TO FOLLOW FEW COMMANDS AND SAY FEW WORDS. DENIES PAIN AT THIS TIME. NG TO LIS. MINIMAL SECRETIONS NOTED. DENIES NAUSEA AT HTIS TIME. MONSIVAIS CATH TO GRAVITY WITH CLEAR LIQ URINE NOTED. ADMISSION PROCESS STARTED AFTER RIJ PLACED.
--- NOTE | 2020-02-24 14:40 | NUR ---
CHEST XRAY DONE FOR LINE CONFIRMATION. OKAY GIVEN BY MD TO USE LINE. LEVOPHED GTT NOW INFUSING TO PROXIMAL (WHITE PORT) AT 5 MCG/MIN. DISTAL (BROWN PORT CAPPED). LR AT 85 ML/HR INFUSING TO MEDIAL (BROWN PORT). FAMILY MEMBERS HAVE BEEN IN ROOM. PATIENT WILL MOAN TIMES.
--- NOTE | 2020-02-24 14:45 | NUR ---
ABG RESULTS ON 4 L OXYMASK. PH-7.27, PCO2-63.2, PO2-100, HCO3-27.5. O2 CHANGED TO 2 L NC. PATIENT VERY DROWSY.
--- NOTE | 2020-02-24 15:00 | NUR ---
REQUESTING ICE. COLD ORAL SWAB GIVEN FOR ORAL COMFORT.
--- NOTE | 2020-02-24 16:15 | NUR ---
DR. VASQUEZ HERE TO SEE PATIENT, HE WILL CALL DR. SANTIAGO WITH UPDATES. PATIEN WILL OPEN EYES BRIEFLY WHEN NAME SAID.
--- NOTE | 2020-02-24 16:30 | NUR ---
REPORTED TO DR BLOOM AND PRIMARY NURSE CRITICAL TROP T 0.056 AT 1631HRS
--- NOTE | 2020-02-24 17:00 | NUR ---
BIPAP ORDERED BY DR. VASQUEZ, THIS APPLIED BY RT. SETTINGS FIO2-35%,02/25,RR-18.
--- NOTE | 2020-02-24 18:00 | NUR ---
LAB DRAWN PER ORDERS. PATIENT IS MORE ALERT, PULLING OFF BIPAP MASK. O2 TO 2 LITERS NC. PATIENT IS REFUSING BIPAP, DEMANDING ICE. WILL NOTIFY
--- NOTE | 2020-02-24 18:29 | NUR ---
DR. SANTIAGO UPDATED ON PATIENT REFUSING BIPAP AND DEMANDING. DR. SANTIAGO SAID IT IS OKAY FOR PATIENT TO HAVE ICE CUBES.
--- NOTE | 2020-02-24 19:02 | NUR ---
CONTINUES ON LEVOPHED GTT AT 5 MCG/MIN, LR 85 ML/HR. O2 AT 2 L NC. NG TO ERNA. YODIT PATENT. NO FUTHER CAHNGES. REPORT TO NEXT SHIFT. AWARE OF MOST RECENT LABS.
--- NOTE | 2020-02-24 19:47 | NUR ---
REPORT RECEIVED FROM NIGHTSHIFT RN, WILL CONTINUE PLAN OF CARE.
--- NOTE | 2020-02-24 20:47 | NUR ---
PT AWAKE AND ORIENTED LAYING IN BED WITH DAUGHTER AT BEDSIDE. PT REPORTS NO PAIN OR NAUSEA WHEN ASKED. PT WAS GIVEN ICE CHIPS HE STATES HIS MOUTH IS DRY. NG TUBE IN AND SUCTIONING, IV FLUIDS INFUSING AT ORDERED RATE, LEVOPHED TITRATED DOWN TO 4MCG/MIN. PT ASSESSED. IV ABX STARTED AT ORDERED RATE. PT REPORTS NO FURTHER NEEDS AT THIS TIME AND IS NOW WATCHING TV. BED IN LOWEST POSITION, CALL LIGHT WITHIN REACH. WILL CONTINUE PLAN OF CARE.
--- NOTE | 2020-02-24 22:11 | NUR ---
PT SLEEPING IN BED. RESPIRATIONS EVEN AND UNLABORED. PT LEFT UNDISTURBED. IV LEVOPHED TITRATED DOWN TO 3MCG/MIN. LAST BP WAS 101/58 (71). BED IN LOWEST POSITION, CALL LIGHT WITHIN REACH, WILL CONTINUE PLAN OF CARE.
--- NOTE | 2020-02-24 22:34 | NUR ---
RESPONDED TO PT CALL LIGHT. PT ASKED FOR ICE CHIPS, A SMALL AMOUNT WAS GIVEN IN A CUP. NG TUBE FLUSHED WITH 20ML'S OF WATER. SUCTION STILL ON INTERMITTENT. IV FLUIDS INFUSING AT ORDERED RATE, LEVOPHED STILL AT 3MCG/MIN. PT REPORTS NO FURTHER NEEDS, WILL CONTINUE PLAN OF CARE.
--- NOTE | 2020-02-24 23:09 | NUR ---
PT SLEEPING, RESPIRATIONS EVEN AND UNLABORED. IV ABX INFUSING ORDERED, LEVOPHED AT 3MCG/MIN AND IV FLUIDS INFUSING AT ORDERED RATE. PT ON INTERMITTENT SUCTIONING. PT REPORTS NO FURTHER NEEDS WHEN ASKED AND RETURNED BACK TO SLEEP. WILL CONTINUE PLAN OF CARE. BED IN LOWEST POSITION, CALL LIGHT WITHIN REACH.
--- NOTE | 2020-02-25 00:09 | NUR ---
PT SLEEPING. RESPIRATIONS EVEN AND UNLABORED. INTERMITTENT SUCTIONING ON, IV FLUID INFUSING ORDERED. LEVOPHED STOPPED DUR TO PRESSURES WITH CONSISTENT MAPS ABOVE 65. PT LEFT UNDISTURBED. WILL CONTINUE PLAN OF CARE.
--- NOTE | 2020-02-25 02:28 | NUR ---
PT SLEEPING, RESPIRATIONS EVEN AND UNLABORED. PT GIVEN 1 UNIT INSULIN PER SLIDING SCALE. NG TUBE FLUSHED WITH WATER. PT HAD A BM, PT WAS CLEANED AND REPOSITIONED ON THE BED. PT REPORTS NO FURTHER NEEDS AT THIS TIME AND RETURNED BACK TO SLEEP. WILL CONTINUE PLAN OF CARE, BED IN LOWEST POSITION, CALL LIGHT WITHIN REACH.
--- NOTE | 2020-02-25 03:22 | NUR ---
PT SLEEPING IN BED. RESPIRATIONS EVEN AND UNLABORED. IV FLUIDS INFUSING AT ORDERED RATE, NG TUBE ON INTERMITTENT SUCTIONING. PT ON 2L O2 SPO2 AT 100%. PT. LEFT UNDISTURBED. WILL CONTINUE PLAN OF CARE. CALL LIGHT WITHIN REACH, BED IN LOWEST POSITION.
--- NOTE | 2020-02-25 05:00 | NUR ---
BRIEF ASSESSMENT DONE WHILE PT ASLEEP.
--- NOTE | 2020-02-25 05:30 | NUR ---
PT AWAKE WHEN LABS DRAWN FROM CENTRAL LINE. NO CHANGES. TAKES ICE CHIPS WHEN AWAKE.
--- NOTE | 2020-02-25 06:53 | NUR ---
CONT TO SLEEP MOST OF TIME. CONT TO REQUEST ICE CHIPS FREQ. NG DRAINAGE IS CAR RUNNER IN COLOR NOW, IS LIGHT GREEN.
--- NOTE | 2020-02-25 08:15 | NUR ---
THIS RN IN PTS ROOM TO GIVE PT SOME MORE ICE CHIPS PER PT REQUEST. IN PTS ROOM TO DO AN EVALUATION. PT HOOKED UP TO SUCTION AT THIS TIMEAND IS ON 2L NC WITH ADEQUATE SATS.
--- NOTE | 2020-02-25 09:30 | NUR ---
ABD/CHEST XRAY DONE PER DR. SANTIAGO ORDERS. PATIENT TOLERATED WELL.
[2020-02-25] MEDS ORDERED: LACTULOSE10 GM/15 M PO (10:00)
--- NOTE | 2020-02-25 10:05 | NUR ---
MED REC COMPLETE
--- NOTE | 2020-02-25 11:28 | NUR ---
THIS RN IN PTS ROOM PER PT REQUEST TO PROVIDE ANOTHER CUP OF ICE CHIPS. PT HAS GOTTEN 2-3 TOTAL FULL CUPS OF ICE CHIPS FROM 0700 TO NOW. THIS RN ESTIMATES THAT PT HAS HAD ABOUT 600ML OF ICE CHIPS IN AT THIS POINT IN THE SHIFT.
--- NOTE | 2020-02-25 11:33 | NUR ---
THIS RN PROVIDED PTS DAUGHTER WITH AN UPDATE OVER THE PHONE. SHE STATES THAT SHE WILL CALL BACK LATER TO SEE IF HAS A PLAN FOR HIM.
--- NOTE | 2020-02-25 12:00 | NUR ---
PT IN ROOM, UPDATE GIVEN TO HER. MONSIVAIS REMAINS PATENT WITH GOOD U/O, WILL CONTINUE TO MONITOR U/O AND CHART Q 2 HRS. PATIENT DENIES PAIN, HAS BEEN ALERT/ORIENTED. CONTINUES TO TAKE ICE CHIPS FREQUENTLY.
--- NOTE | 2020-02-25 14:30 | NUR ---
DR. SANTIAGO PHONED IN ORDERS TO PAVITHRA Dubon RN, BEGIN MIRLAX WITH GATERAID BOWEL PREP.
--- NOTE | 2020-02-25 15:15 | NUR ---
THIS RN IN PTS ROOM TO REMOVE PTS NG TUBE PER VERBAL ORDER FROM . PT TOLERATED WELL
--- NOTE | 2020-02-25 15:50 | NUR ---
SECOND BOTTLA OF MIRLAX IN [facility] STARTED.
--- NOTE | 2020-02-25 16:00 | NUR ---
TAKING BOWEL PREP W/O PROBLEMS. DENIES NAUSEA, NO CHANGES. IVF INFUSING AT 85ML/HR. O2 DECREASED TO 1L NC.
--- NOTE | 2020-02-25 18:00 | NUR ---
this rn in pts room with efrain wiley to change pr from [id number] a total of 4 times for liquid black/green stool. pt rectum area is red and this rn and efrain rn applied barrier cream to pts reddened area inbetween each bowel movement. pt states that the area is painful. will discuss with ladies underwear operator to continue to monitor
--- NOTE | 2020-02-25 20:53 | NUR ---
PT WAS INITIALLY SLEEPING. WHEN ASSESSED PT WAS ALERT AND ORIENTED TO ALL BUT LOCATION. IV ABX NOW INFUSING, NO INSULIN GIVEN BLOOD SUGAR WAS WITHIN RANGE. CENTRAL LINE HEPARIN LOCKED. PT HAD A BM AND A FULL BED CHANGE WAS DONE. PT REPORTS NO FURTHER NEEDS AFTER BEING ASKED. PT ASKED FOR LIGHTS TO BE TURNED OFF TO GO TO SLEEP. PT ON 1L NC, SPO2 AT 93%. WILL CONTINUE PLAN OF CARE. CALL LIGHT WITHIN REACH, BED IN LOWEST POSITION.
--- NOTE | 2020-02-25 22:04 | NUR ---
RESPONDED TO IV PUMP ALARM. IV FLUIDS AND ABX RESTARTED AFTER ASSESSING LINE. PT STATED HE HAD A BOWEL MOVEMENT. PT WAS CLEANED AND CHANGED. PT REPORTS NO FURTHER NEEDS AT THIS TIME, WILL CONTINUE PLAN OF CARE. CALL LIGHT IN REACH, BED IN LOWEST POSITION. 1L O2 NC ON PT AND IV FLUIDS INFUSING AT ORDERED RATE.
--- NOTE | 2020-02-25 23:20 | NUR ---
PT LAYING IN BED SLEEPING. RESPIRATIONS EVEN AND UNLABORED, PT ON 1L O2 NC, SPO2 AT 98%. IV ABX COMPLETE. LR STILL INFUSING AT ORDERED RATE. PT LEFT UNDISTURBED, WILL CONTINUE PLAN OF CARE.
--- NOTE | 2020-02-26 01:11 | NUR ---
PT LAYING IN BED SLEEPING, IV FLUIDS INFUSING ORDERED. PT ASSESSED. PT HAD A BM AND A FULL BED CHANGE WAS DONE. BARRIER CREAM APPLIED AFTER CLEANING PT. PT REPORTS NO PAIN AND NO FURTHER NEEDS ASIDE FROM WATER WHICH WAS PROVIDED. PT. ON 1L NC, SPO2 100%. WILL CONTINUE PLAN OF CARE. CALL LIGHT IN REACH, BED IN LOWEST POSITION.
--- NOTE | 2020-02-26 02:31 | NUR ---
PT LAYING IN BED SLEEPING. PT HAD AN EPISODE OF INCONTINENCE, PT WAS CLEANED. PT REPORTS NO FURTHER NEEDS AFTERWARDS. PT ON 1L O2 NC, SPO2 97%. WILL CONTINUE PLAN OF CARE, BED IN LOWEST POSITION, CALL LIGHT WITHIN REACH.
--- NOTE | 2020-02-26 04:57 | NUR ---
PT SLEEPING WHEN ASSESSED. PT. HAD AN EPISODE OF INCONTINENCE, PT WAS CLEANED, BARRIER CREAM PUT ON, AND PT REPOSITIONED ON BED. PT REPORTS NO FURTHER NEEDS AT THIS TIME, WATER PROVIDED TO PT. WILL CONTINUE PLAN OF CARE. CALL LIGHT IN REACH, BED IN LOWEST POSITION.
--- NOTE | 2020-02-26 06:30 | NUR ---
AWAKE, C/O BEING COLD. INC MOD AMT STOOL. ATTENDS CHANGED. SKING IN [place] AREA CONT TO BE RED AND ANGRY APEARING. MOISTURE BARRIER APPLIED. GIVEN WARM BLANKET. STATES IS HUNGRY. GIVEN ONE CONTAINER SUGAR FREE JELLO.
--- NOTE | 2020-02-26 08:00 | NUR ---
ASSESSMENT DONE, TALKED WITH PATIENT ABOUT POC FOR DAY, INDICATES UNDERSTANDING. SITTING UP IN BED TO TAKE JELLO AND GATERAID. DENIES PAIN, NAUSEA. C/O CVC ITCHING AT SITE. WILL CHANGE DRESSING LATER THIS AM. MONSIVAIS CATH PATENT, IVF TO RIJ INFUSING.
--- NOTE | 2020-02-26 09:00 | NUR ---
[facility] DRESSING CHANGED USING [employer] FABRICATOR. REPOSIIONED. O2 TO OFF, TRIAL RA. DENIES SHORTNESS OF BREATH.
--- NOTE | 2020-02-26 09:30 | NUR ---
DR. SANTIAGO HERE TO SEE PATIENT. ORDERES RECIEVED TO GIVE 60 GM DIET, TRANSFER TO MEDICAL FLOOR. PATIENT IS AWARE OF PLAN.
--- NOTE | 2020-02-26 09:56 | NUR ---
SPOKE WITH PATIENT IN ROOM. PATIENT IS ORIENTED. PATIENT PLANS TO RETURN TO [facility] AND FEELS SAFE TO DO SO. PATIENTS ONLY CONCERN AT THIS TIME WAS HE WANTED "TO EAT". PATIENT WAITING FOR MD TO SEE HIM TO CLEAR DIET UPGRADE. PATIENT HAD NO QUESTIONS. STATES HE STILL IS BED AND CHAIR BOUND, THAT FACILITY USES [facility] TO GET HIM UP FROM BED OR TRANSFER HIM. CM WILL FOLLOW NEEDED.
--- NOTE | 2020-02-26 10:00 | NUR ---
INC OF STOOL, BED LINEN CHANGED. SITTING UP IN BED FOR BREAKFAST.
--- NOTE | 2020-02-26 10:30 | NUR ---
Agustin Nunez at [facility], checking to see is Reagan can return. She states he may return whenever needed. Will check with Dr. Bradford if he plans on dc of this pt today.
--- NOTE | 2020-02-26 12:00 | NUR ---
ASSESSMENT DONE. NO CHANGES. SITTING UP IN BED FOR LUNCH. DENIES PAIN.
--- NOTE | 2020-02-26 13:48 | NUR ---
CARTOGRAPHIC DESIGNER BUSY CARING FOR PT. WILL CHECK AGAIN
--- NOTE | 2020-02-26 14:00 | NUR ---
HAS BEEN WATHCHING TV. REPOSITIONED PRN. C/O IRRITATIONS AT [facility] INSERTIONS. TALKED WITH PATIENT ABOUT THIS MANY TIMES TODAY. PATIENT IS ASKING ME TO CALL MD AND ASK FOR THIS TO BE TAKEN OUT. I TOLD THE PATIENT I WOULDN'T DO THAT AND THE REASONS WHY.
--- NOTE | 2020-02-26 16:40 | NUR ---
INC OF DARK GREEN STOOL.
--- NOTE | 2020-02-26 16:45 | EKG ---
[facility] [address] [place], [place] [address] Signed Normal sinus rhythm Inferior infarct (cited on or before 24-JAN-2020) Cannot rule out Anterior infarct , age undetermined Abnormal ECG When compared with ECG of 24-JAN-2020 12:05, No significant change was found Confirmed by CLIFTON VASQUEZ MD ([id number]) on 02/26/2020 4:45:05 PM Electronically Signed By: CLIFTON VASQUEZ MD 02/26/20 1645 PATIENT NAME: SAROJ AMEZQUITA Electrocardiogram DATE OF : 49 PHYSICIAN: CLIFTON VASQUEZ MD REPORT #: [id number] REPORT IS CONFIDENTIAL AND NOT TO BE RELEASED WITHOUT AUTHORIZATION
--- NOTE | 2020-02-26 17:00 | NUR ---
TO CHAIR VIA LIFT.
--- NOTE | 2020-02-26 17:20 | NUR ---
BACK TO BED VIA LIFT. NOW SITTING UP IN BED FOR DINNER. DENIES NAUSEA. CONTINUES TI C/O RIJ SITE BOTHERING HIM.
--- NOTE | 2020-02-26 18:59 | NUR ---
SITTING UP IN BED EATING JELLO. NO DISTRESS NOTED.
--- NOTE | 2020-02-26 20:27 | NUR ---
PT LAYING IN BED WATCHING TV AWAKE AND ORIENTED. MEDICATIONS ADMINISTERED (SEE MAR), IV ABX INFUSING, IV FLUIDS INFUSING AT ORDERED RATE. PT REPORTS NO PAIN WHEN ASKED OR DIFFICULTY BREATHING, PT RECEIVING 1L O2 VIA NC SPO2 96%. PT PROVIDED WITH JELLO AND WATER HE ASKED. PT REPORTS NO FURTHER NEEDS, WILL CONTINUE PLAN OF CARE. CALL LIGHT IN REACH, BED IN LOWEST POSITION.
--- NOTE | 2020-02-26 20:47 | NUR ---
PT HAD A BM, PT WAS CLEANED AND NEW BRIEFS WERE PLACED. MONSIVAIS CARE DONE. PT REPORTS NO FURTHER NEEDS AT THIS TIME. WILL CONTINUE PLAN OF CARE, CALL LIGHT IN REACH, BED IN LOWEST POSITION.
--- NOTE | 2020-02-26 21:56 | NUR ---
RESPONDED TO PT CALL LIGHT. PT ASKED TO BE MOVED OVER TO THE BEDSIDE CHAIR. SLING USED TO MOVE PT OVER TO BEDSIDE CHAIR. PT LEFT ON CHAIR IN A RECLINING POSITION HE REQUESTED. CALL LIGHT IN REACH. WILL CONTINUE PLAN OF CARE.
--- NOTE | 2020-02-26 22:09 | NUR ---
RESPONDED TO PT CALL LIGHT. PT ASKED TO BE MOVED BACK TO THE BED. SLING WAS USED TO PLACE PT BACK. PT HAD A SMALL BM AND WAS CLEANED. DESETIN APPLIED TO SKIN AFTERWARDS. PT REPORTS NO FURTHER NEEDS AND IS NOW BACK ON THE BED IN A SEMIFOWLERS POSITION WATCHING TV. O2 STILL ON AT 1L THROUGH A NC. MONSIVAIS IN PLACE. IV FLUIDS AND ABX INFUSING THROUGH THE CENTRAL LINE. WILL CONTINUE PLAN OF CARE. CALL LIGHT IN REACH BED IN LOWEST POSITION.
--- NOTE | 2020-02-26 23:00 | NUR ---
RESPONDED TO PT CALL LIGHT. PT STATED HE COULND GO TO SLEEP BECASE OF THE "BEEPING" PT WAS INFORMED THE BEEPING WAS COMING FROM THE TV. PT REPORTS NO FURTHER NEEDS AT THIS TIME. WILL CONTINUE PLAN OF CARE. CALL LIGHT IN REACH BED IN LOWEST POSITION.
--- NOTE | 2020-02-27 00:27 | NUR ---
RESPONDED TO CALL LIGHT, PT LAYING IN BED AND WANTED THE TV ON. PT REPORTS NO FURTHER NEEDS AT THIS TIME. WILL CONTINUE PLAN OF CARE. CALL LIGHT IN REACH BED IN LOWEST POSITION.
--- NOTE | 2020-02-27 00:35 | NUR ---
RESPONDED TO PT CALL LIGHT. PT REPORTS INDIGESTION AND HAS ASKED FOR "TUMS OR ROLAIDS". PRN TUMS GIVEN TO PT. PT REPORTS NO FURTHER NEEDS. WILL CONTINUE PLAN OF CARE. CALL LIGHT IN REACH, BED IN LOWEST POSITION, PT ON 1L NC, IV FLUIDS INFUSING.
--- NOTE | 2020-02-27 02:19 | NUR ---
RESPONDED TO PT CALL LIGHT. PT STATED HE COULD NOT GO TO SLEEP. PT ALSO STATED HIS ABDOMEN WAS UNCOMFORTABLE. PT WAS OFFERED AN ICE OR HOT PACK, PT CHOSE THE ICE PACK. AFTER APPLYING PT STATED IT HELPED WITH HIS DISCOMFORT. PT ON 1L NC, NEW BAG OF IV FLUID STARTED. LINE OF LR CHECKED FOR BLOOD RETURN AND FLUSHED BEFORE STARTING NEW BAG OF FLUID AT ORDERED RATE. PT REPORTS NO FURTHER NEEDS AT THIS TIME WHEN ASKED, WILL CONTINUE PLAN OF CARE. CALL LIGHT IN REACH, BED IN LOWEST POSITION.
--- NOTE | 2020-02-27 03:00 | NUR ---
RESPONDED TO PT CALL LIGHT. PT JUST WANTED TO TALK AND GIVE ME AN UPDATE ON HIS TV SHOW. PT REPORTS NO FURTHER NEEDS. WILL CONTINUE PLAN OF CARE. CALL LIGHT IN REACH, BED IN LOWEST POSITION.
--- NOTE | 2020-02-27 05:19 | NUR ---
RESPONDED TO PT CALL LIGHT. PT ASKED FOR A SNACK. SUGAR FREE PUDDING WAS PROVIDED. PT REPORTS NO FURTHER NEEDS. CALL LIGHT IN REACH, BED IN LOWEST POSITION. WILL CONTINUE PLAN OF CARE.
--- NOTE | 2020-02-27 06:05 | NUR ---
C/O MASSIVE HEAD ACHE, RATED PAIN 7/10 AND IS REQUESTING TYLENOL. GIVEN 650MG PO.
--- NOTE | 2020-02-27 06:23 | NUR ---
PT HAD A BM, PT WAS CLEANED AND CHANGE WITH THE HELP OF ELLIOT ZAMORANO. PT REPORTS NO FURTHER NEEDS. IV FLUIDS INFUSING, PT ON 1L O2 NC. WILL CONTINUE PLAN OF CARE.
--- NOTE | 2020-02-27 07:05 | NUR ---
C/O STOMACH BEING UPSET, WANTS TO GET UP IN CHAIR. TO CHAIR PER SLING. FEELS LIKE IF HE GETS UP IT WILL FEEL BETTER.
--- NOTE | 2020-02-27 08:04 | NUR ---
PATIENT USES CALL LIGHT AND STATES HE WOULD LIKE TO GO BACK TO BED. PT EXPRESSES THAT HIS CENTRAL LINE ON HIS RIGHT SIDE OF NECK IS VERY BOTHERSOME, AND ITCHING HIM "LIKE CRAZY." PATIENT HELPED BACK TO BED WITH CEILING LIFT AND GREEN SLING AND TOLERATES WELL. PT HAS A GELATINOUS LIKE SOFT BM AND CHANGED IN BED. BUTTOCKS VERY EXCORIATED AND SKIN CLEANED THOROUGHLY AND DESITIN APPLIED. MONSIVAIS CATH CARE DONE PER PURSE MAKER. ANTICIPATING THAT MONSIVAIS AND CENTRAL LINE WILL BE D/C TODAY AND POTENTIAL D/C BACK TO [place]. PT NOW WAITING FOR HIS BREAKFAST. CONTINUE TO MONITOR.
--- NOTE | 2020-02-27 08:20 | NUR ---
PATIENT ASSESSMENT COMPLETED. PT. WAS NOT VERY HUNGRY AND ATE A FEW BITES OF BREAKFAST. IJ SITE FLUSHED AND HEPARIN LOCKED. RIGHT FOREARM IV SITE FLUSHED WELL AND WNL. PT. ON 1L OF O2 NC. PT. REPORTS THAT IJ SITE IS UNCOMFORTABLE, BUT OTHERWISE DENIES PAIN. PT. SITTING IN CHAIR AND TOLERATING WELL. SKIN IS DRY AND FLAKING ON FEET. RIGHT FOOT DRESSING CDI. PT. LEFT RESTING WITH CALL LIGHT IN REACH.
--- NOTE | 2020-02-27 08:21 | NUR ---
Brief changed, gown changed room picked up fresh water given.
--- NOTE | 2020-02-27 09:00 | NUR ---
PATIENT MEDS GIVEN AND MONSIVAIS EMPTIED OF 250 ML CLEAR YELLOW URINE. PT. ANXIOUS TO SEE DR. SANTIAGO.
--- NOTE | 2020-02-27 09:34 | NUR ---
Call from [facility]. RN requesting latest notes for update. Dr Bradford note and Dr. Cary consult sent.
--- NOTE | 2020-02-27 09:48 | NUR ---
CALLED DR. SANTIAGO TO DISCUSS PLAN OF CARE. ORDERS REC'D TO D/C YODIT, D/C CENTRAL LINE, AND MD WILL COME IN TO SEE PATIENT LATER THIS AM. DR. VASQUEZ IN CCU AND ALSO GIVEN UPDATE ON PATIENT. PATIENT WILL LIKELY D/C TO [facility] TODAY.
--- NOTE | 2020-02-27 10:20 | NUR ---
MONSIVAIS CATHETER REMOVED. 10ML WATER REMOVED WITH SYRINGE . CATH TIP INTACT. PATIENT TOLERATED WELL. MONSIVAIS HAD 80ML CLEAR YELLOW URINE.
--- NOTE | 2020-02-27 10:50 | NUR ---
PATIENT IJ REMOVED. 2 SUTURES REMOVED AND TIP OF CATHETER INTACT. PT. TOLERATED WELL. PRESSURE HELD FOR 2 MINUTES AND DRESSED WITH STERILE GAUZE AND DRESSING.
--- NOTE | 2020-02-27 11:50 | NUR ---
Messaged Mayra at [facility] to check if Reagan Shepard can return. She returned my call and agreed. Updated, Dr. Bradford saw Reagan and plans on dc today when he returns from surgery. Tentative plan for dc to [facility] at 1500. SNF orders, chart notes, medication list, covid test placed in folder and taken to CCU.
--- NOTE | 2020-02-27 12:24 | NUR ---
Pt. brief changed after bowel movement. Pt. moved from bed to sit in chair with angeles lift
--- NOTE | 2020-02-27 12:30 | NUR ---
PATIENT GIVEN 1 UNIT HUMULIN. ASSESSMENT COMPLETED. RIGHT IV SITE WNL. PT. UP IN THE CHAIR FOR LUNCH AND FEEDING HIMSELF. PT. DENIES PAIN. TEMP.98.1. PT. LEFT RESTING IN CHAIR WITH CALL LIGHT IN REACH.
--- NOTE | 2020-02-27 13:40 | NUR ---
Notified by staff Dr. Bradford completed orders. Orders faxed to [facility].
--- NOTE | 2020-02-27 14:00 | NUR ---
Orders reviewed and accepted by [facility] RN. WC van called by nurses and will picker and sorter load and unload Reagan's wc and bring to the hospital for dc at 1500.
--- NOTE | 2020-02-29 09:00 | HP ---
[facility] [address] [place], [place] [address] Signed ADMISSION DATE: 02/24/2020 TIME: 1:20 p.m. PROBLEM: Severe sepsis, fecal impaction, possible left-sided aspiration pneumonia. HISTORY OF PRESENT ILLNESS: This morbidly obese 75-year-old white man is markedly debilitated and has been in [facility] for about a year. He is accompanied by his . The patient presented with abdominal distention and hypotension. He was brought from the shelter with severe decompensation. He had recently been hospitalized under the direction of Dr. [place] Sands for a fecal impaction, which at that time showed a white count of 18,000 for which a fecal disimpaction in the emergency room and subsequent enemas and oral laxatives were thought to be beneficial. Of note, his CT scan performed on his previous hospitalization last week showed some extraluminal and possibly intramural air of the stomach as well as that of the sigmoid; those findings have resolved. He does not have free air on the CT scan. His presentation to the emergency room was met with intravenous fluid resuscitation at least 3 L of crystalloid solution, but he has been very oliguric despite this. He was started on Levophed pressor when his blood pressure went below 70 systolic. He has responded somewhat to these measures, but not entirely and remains with significant distention. IMAGING STUDIES: Include a plain abdominal x-ray as well as a chest x-ray showing extreme gaseous distention of the colon and CT scan showing distention of the colon without evidence of obstructing lesion and possible ongoing fecal impaction. As mentioned, previous gastric emphysema and sigmoid pneumatosis have resolved. There is no evidence of small-bowel obstruction. The stomach was distended despite placement of a nasogastric tube. The nasogastric tube effluent is thin and somewhat reddish, and Hemoccult-positive. PAST MEDICAL HISTORY: Significant for congestive heart failure. He is considered to have chronic systolic heart failure with an ejection fraction of 40%. He is known to have peripheral arterial Electronically Signed By: ANI SANTIAGO MD 02/29/20 0900 PATIENT NAME: SAROJ AMEZQUITA HISTORY AND PHYSICAL DATE OF : 49 REPORT #: [id number] PHYSICIAN: ANI SANTIAGO MD PCP: ROSLYN JONES MD REPORT IS CONFIDENTIAL AND NOT TO BE RELEASED WITHOUT AUTHORIZATION [facility] [address] [place], [place] [address] Signed disease. Obstructive sleep apnea with noncompliance to CPAP therapy. Benign prostatic hyperplasia without symptoms. 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 He has a chronic right lower extremity wound as previously noted. MEDICATIONS: At the time of admission include aspirin, atorvastatin, Plavix, carvedilol, Coreg, duloxetine, tamsulosin, gabapentin, Tylenol, insulin, pantoprazole, Onglyza, magnesium hydroxide, oxycodone, losartan, senna, DSS, and mupirocin, as well as torsemide 20 mg daily. Note is made of his hospitalization by Dr. Sands between February 10 and February 13. At the time of discharge, he is said to have been "improved." His white count had decreased from 18,000 to 14,000, which was not repeated and he was noted to be talkative and eating well. Abdominal exam was considered benign. REVIEW OF SYSTEMS: Provided in part by his who attends to him and partly by the patient himself. He does not have abdominal pain. He does not have rectal pain, he says. His notes that his weakness has been progressive. PHYSICAL EXAMINATION: GENERAL: Extremely large man, who looks to be in significant distress from vital signs standpoint. VITAL SIGNS: Systolic blood pressure variable between 70 and 130 on the monitor. Pulse is about 69. HEENT: Mucous membranes are reasonably moist. Trachea is midline. CHEST: Shows diminished respiratory excursion, he has extreme obesity. Somewhat hypoventilatory. ABDOMEN: Markedly obese. He does have significant tenderness on the right colon. EXTREMITIES: Edema. There is a bandage and Coban on his right leg with a device that appears to be a TENS unit. I did not see a wound VAC particularly. RECTAL: Exam was performed, there is soft pasty stool. There is no sign of obstructing neoplasm of the rectum. Scrotum shows mild edema. A Miller catheter is in place, which is draining clear urine. LABORATORY STUDIES: Show a white count of 35.9, hematocrit 31.5, platelets 292,000, band forms 2%. Chem profile shows a potassium of 5.0, creatinine of 2.06, glucose 261, lactic acid 2.4, calcium 7.5, AST 51. Troponin 0.054, normal to 0.010. COVID serology has been obtained, but pending still within the 2-hour window. Electronically Signed By: ANI SANTIAGO MD 02/29/20 0900 PATIENT NAME: SAROJ AMEZQUITA HISTORY AND PHYSICAL DATE OF : 49 REPORT #: [id number] PHYSICIAN: ANI SANTIAGO MD PCP: ROSLYN JONES MD REPORT IS CONFIDENTIAL AND NOT TO BE RELEASED WITHOUT AUTHORIZATION [facility] [address] [place], [place] [address] Signed IMAGING STUDIES: Today include plain abdominal x-ray showing marked distention of colonic loops. Chest x-ray showing a very large heart, clear lung field on the right, obscured somewhat left lung field, but without sign of acute infiltrate. Abdominal x-ray shows the colon to have a fair amount of air within it; there is no sign of free air. CT scan shows a distended stomach with a fair amount of fluid within despite nasogastric tube in place. Nasogastric tube has been irrigated. His drain approximated 1000 mL of relatively thin fluid that is dark reddish in tinge. He appears to be some consolidation in the left lung base with small amount of fluid appears to be significant coronary calcifications. Nasogastric tube was within the stomach. Both kidneys appear normal as was the spleen in the liver. There is no distention of the colon to the transverse and right side without sign of extraluminal air. There is no evidence of small-bowel obstruction at all. A fair amount of stool within the rectum, but without extraluminal air, intramural air, or perirectal or pericolonic infiltration, or inflammation per se. ASSESSMENT: The patient has significant sepsis as manifest by hypotension, dehydration, elevated lactic acid level, and has been initiated on broad-spectrum antibiotic by Rubina Rogers. He is on a pressor agent, Levophed currently and has had appropriate fluid resuscitation. He will be admitted to the Intensive Care Unit for further management. His underlying medical problems are significant and possibly prohibitive to survival. One wonders whether or not his left lung infiltrative process represents a pneumonia and the fecal impaction, though significant less important factor overall. I would advise that the patient was prescribed MiraLAX to be taken which he has not done because it gave him "diarrhea." Where he had to have a free perforation or signs of ischemic bowel in someway exploration might be advisable whether or not he had significant medical decompensation. His very massively distended stomach alone can certainly give a vagal response, this can manifest as hypotension and bradycardia, but decompression is underway. I have called Dr. Ruano, hospitalist over the day and asked for emergent consultation as well. As regards his code status, he was previously a no-code status, but since his recent hospitalization has been considered a "full code." I am not sure this is appropriate, however, that is the wishes that his family has stated previously and currently. Additionally, the issue of his elevated troponin in the phase of his EKG, which shows an age indeterminate, inferior infarct, and findings also unable to rule out anterior infarct are also noted and will be considered by the hospitalist also. He does not have complaints of precordial chest pain or complaints typical of myocardial infarction, but serial enzymes and additional EKGs would be appropriate. He has Electronically Signed By: ANI SANTIAGO MD 02/29/20 0900 PATIENT NAME: SAROJ AMEZQUITA HISTORY AND PHYSICAL DATE OF : 49 REPORT #: [id number] PHYSICIAN: ANI SANTIAGO MD PCP: ROSLYN JONES MD REPORT IS CONFIDENTIAL AND NOT TO BE RELEASED WITHOUT AUTHORIZATION [facility] [address] [place], [place] [address] Signed significant coronary calcification and the possibility of myocardial infarction concurrent or as the primary problem is not impossible obviously. MD LILO Salazar/HOLLI /[id number] cc: MD Clifton Wen Jr, MD Lexie Ruano, MD [place] Sands MD Copies: ADDIS MULLEN JR, MD,CLIFTON RUANO,LEXIE SANDS,[place] Zurita MD ~ Electronically Signed By: ANI SANTIAGO MD 02/29/20 0900 PATIENT NAME: SAROJ AMEZQUITA HISTORY AND PHYSICAL DATE OF : 49 REPORT #: [id number] PHYSICIAN: ANI SANTIAGO MD PCP: ROSLYN JONES MD REPORT IS CONFIDENTIAL AND NOT TO BE RELEASED WITHOUT AUTHORIZATION
--- NOTE | 2020-02-29 09:00 | OR ---
[facility] [address] [place], [place] [address] Signed DATE OF OPERATION: 02/24/2020 SURGEON: Ani Santiago MD PREOPERATIVE DIAGNOSES: Sepsis, fecal impaction, left lung infiltrate. POSTOPERATIVE DIAGNOSIS: Sepsis, fecal impaction, left lung infiltrate. PROCEDURES: Right internal jugular central venous catheter placement (Arrow Blue Tip triple-lumen catheter). ANESTHESIA: Local, 1% lidocaine (3 mL). INDICATION: A 75-year-old morbidly obese white male with multiple medical problems, admitted to the Intensive Care Unit with sepsis including elevated lactate was 2.4, hypotension requiring Levophed for pressor support after fluid resuscitation. Central venous catheterization is necessary for monitoring infusion and blood draws. I explained to the patient and previously to his , who was with him initially. The risks of bleeding, infection, pneumothorax related to the inflation of the catheter. They understand and wished to proceed. FINDINGS: Dark nonpulsatile blood was noted from the right internal jugular vein. Catheterization was without complication. Good function is noted. Chest x-ray is pending. DESCRIPTION OF PROCEDURE: In the mild Trendelenburg position in the Intensive Care Unit, head turned to the left. The right neck and upper torso were prepared with a chlorhexidine solution and draped sterilely. A 1% lidocaine without epinephrine was injected over the right sternocleidomastoid muscle without problem. Using the Seldinger technique with single pass, the right internal jugular vein was easily accessed showing dark nonpulsatile blood. A flexible J-wire was passed down the needle, needle was removed. A small amount of ventricular ectopy was noted. The site was incised with an #11 blade and the blue dilator passed over the wire and subsequently a previously inspected and irrigated Arrow Blue Tip triple-lumen catheter passed over the wire. The wire was removed. Electronically Signed By: ANI SANTIAGO MD 02/29/20 0900 PATIENT NAME: SAROJ AMEZQUITA OPERATIVE REPORT DATE OF : 49 REPORT #: [id number] PHYSICIAN: ANI SANTIAGO MD PCP: ROSLYN JONES MD REPORT IS CONFIDENTIAL AND NOT TO BE RELEASED WITHOUT AUTHORIZATION [facility] [address] [place], [place] [address] Signed Aspiration on the distal port showed dark nonpulsatile blood; it was flushed with saline. The catheter was withdrawn a few centimeters, placed in the appropriate position, secured to the skin within close collar device including a Leon needle and silk suture. An anti-infective disk was applied as was a SorbaView dressing. Of course, sterile technique was maintained throughout including glove, gown, and mask. The patient tolerated the procedure well. Chest x-ray is pending. MD LILO Salazar/KYRAL /[id number] cc: MD Nasim So MD Glyn E A Marsh Jr, MD Lohith Veerappa Reddy, MD Copies: LEXIE RAGSDALE MD, ANDREW L MD MARSH JR,ADDIS VASQUEZ,CLIFTON RAI MD ~ Electronically Signed By: ANI SANTIAGO MD 02/29/20 0900 PATIENT NAME: SAROJ AMEZQUITA OPERATIVE REPORT DATE OF : 49 REPORT #: [id number] PHYSICIAN: ANI SANTIAGO MD PCP: ROSLYN JONES MD REPORT IS CONFIDENTIAL AND NOT TO BE RELEASED WITHOUT AUTHORIZATION
== END 2020-02-27 14:50 | disposition home or self-care (01) | DRG 871 ==
LOC: ED 09:18 → CCU 13:44
PROVIDERS: ADMIT Surgery; ATTEND Surgery
PROC: 3E043XZ Introduction of Vasopressor into Central Vein, Percutaneous Approach (ICD-10-PCS; principal; 2020-02-24)
PROC: 02HV33Z Insertion of Infusion Device into Superior Vena Cava, Percutaneous Approach (ICD-10-PCS; 2020-02-24)
PROC: 5A09357 Assistance with Respiratory Ventilation, Less than 24 Consecutive Hours, Continuous Positive Airway Pressure (ICD-10-PCS; 2020-02-24)
DX: A41.9 Sepsis, unspecified organism (principal); R65.21 Severe sepsis with septic shock; G93.41 Metabolic encephalopathy; J96.22 Acute and chronic respiratory failure with hypercapnia; N17.9 Acute kidney failure, unspecified; I50.22 Chronic systolic (congestive) heart failure; I69.354 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cting left non-dominant side; J98.11 Atelectasis; Z20.828 Contact with and (suspected) exposure to other viral communicable diseases; K52.89 Other specified noninfective gastroenteritis and colitis; E66.01 Morbid (severe) obesity due to excess calories; E86.0 Dehydration; R74.02 Elevation of levels of lactic acid dehydrogenase [LDH]; K59.00 Constipation, unspecified; E11.51 Type 2 diabetes mellitus with diabetic peripheral angiopathy without gangrene; G47.33 Obstructive sleep apnea (adult) (pediatric); R79.89 Other specified abnormal findings of blood chemistry; N40.0 Benign prostatic hyperplasia without lower urinary tract symptoms; E78.5 Hyperlipidemia, unspecified; G89.4 Chronic pain syndrome; K21.9 Gastro-esophageal reflux disease without esophagitis; M25.571 Pain in right ankle and joints of right foot; D50.9 Iron deficiency anemia, unspecified; Z91.19 Patient's noncompliance with other medical treatment and regimen; Z79.899 Other long term (current) drug therapy; Z79.02 Long term (current) use of antithrombotics/antiplatelets; Z79.82 Long term (current) use of aspirin; Z79.891 Long term (current) use of opiate analgesic; Z68.32 Body mass index [BMI] 32.0-32.9, adult
CPT/HCPCS: 36600; 43752; 51702; 71045; 74018; 74176; 74177; 80048; 80053; 81001; 82247; 82465; 82803; 83036; 83605; 83615; 83690; 83735; 84100; 84478; 84484; 84550; 85025; 86850; 86900; 86901; 86920; 93005; 94660; 99285-25; C9113; C9803; J1644; J1815; J2185; J2405; J2543; J7030; J7121; U0003

== ENCOUNTER 2020-04-22 16:10 | Emergency (ER) | payer MEDICARE ==
[~2020-04-22] VITALS: Ht 177.8 cm; Wt 94.5 kg
[~2020-04-22 16:10] MED LIST changes: -COZAAR50 MG PO; +LACTULOSE10 GM/15 M PO
--- OUTSIDE RECORDS SUMMARY | 2020-04-22 16:14 | XMS ---
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 \Consumer Agent Portal (CAP)[employer] BRANSON[employer]ipGeoWILTON PHONE: [phone] ALON [facility] 01/08/2019-Current PHONE: [phone] Leonard Lopez [facility] Current PHONE: [phone] [place] P[facility] \F\ [facility]: FRANCA 03/27/2019-[facility] PHONE: [phone] Jalen has no Care Guidelines for this patient. Care History Medical/Surgical 03/27/2019 [facility] - PATIENT HAS PCP-DR ROSLYN JONES AT THE [facility] HIS PCP- - LAST VISIT WITH DR JONES WAS ON 02/05/19 AND PT WAS SCHEDULED FOR PATIENT- PATIENT WAS SUPPOSED TO BE SEEN ON 03/22/2019 FOR PT - PROVIDER DOES NOT HAVE RECORDS. - PATIENT RECENTLY HAD A GEC DONE BY THE [place] PROVIDER IN OCTOBER 2018. - [facility] WILL HAVE ALL RECENT ED RECORDS SENT TO PCP AT THE [place]-PATIENT DOES NOT HAVE DR CHI PCP. Jovany VISIT COUNT (12 MO[address] 8 [facility]. TOTAL 8 NOTE: Visits indicate total known visits. ED/UCC VISIT TRACKING (12 MO.) 04/22/2020 16:12 [facility] [place] TYPE: Emergency COMPLAINT: - R FOOT WOUND 02/24/2020 09:19 [facility] [place] TYPE: Emergency COMPLAINT: - ABDOMINAL 02/11/2020 14:06 [facility] [place] TYPE: Emergency COMPLAINT: - POSSIBLE GI 01/24/2020 11:46 [facility] [place] TYPE: Emergency COMPLAINT: - FALL 08/23/2019 08:28 [facility] [place] TYPE: Emergency COMPLAINT: - MULTIPLE COMPLAINTS DIAGNOSES: - retirement (current) use of insulin - Anemia, unspecified - Acute pancreatitis without necrosis or infection, unspecified - Type 2 diabetes mellitus with diabetic polyneuropathy - Exposure to other specified factors, initial encounter - Constipation, unspecified - retirement (current) use of aspirin - Unspecified abdominal pain - Unspecified fracture of T7-T8 vertebra, initial encounter for closed fracture - retirement (current) use of antithrombotics/antiplatelets - Other 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 wall 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 08/08/2019 14:55 [facility] [place] TYPE: Emergency COMPLAINT: - SEPSIS 05/18/2019 15:02 [facility] [place] TYPE: Emergency COMPLAINT: - ARM SWELLING DIAGNOSES: - Presence of cardiac and vascular implant and graft, unspecified - retirement (current) use of insulin - Personal history of nicotine dependence - Post-traumatic stress disorder, unspecified - Other senior living (current) drug therapy - Other specified soft tissue disorders - Pain in right upper arm - Type 2 diabetes mellitus with diabetic polyneuropathy - remote computer terminal operator (current) 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 aspirin 04/24/2019 13:13 [facility] [place] TYPE: Emergency COMPLAINT: - CHOKING EPISODE DIAGNOSES: - Shortness of breath - Personal history of nicotine dependence - Other specified symptoms and signs involving the circulatory and respiratory systems - Type 2 diabetes mellitus with diabetic neuropathy, unspecified - Other specified symptoms and signs involving the circulatory and respiratory systems INPATIENT VISIT TRACKING (12 MO.) 02/24/2020 13:44 [facility] [place] TYPE: Critical Care COMPLAINT: - SEPSIS, ELEVATED TROPONIN, FECAL IMPACTION DIAGNOSES: - Type 2 diabetes mellitus with diabetic peripheral angiopathy without gangrene - Benign prostatic hyperplasia without lower urinary tract symptoms - Acute kidney failure, unspecified - Morbid (severe) obesity due to excess calories - Chronic pain syndrome - Iron deficiency anemia, unspecified - retirement (current) use of opiate analgesic - Other specified abnormal findings of blood chemistry - 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cting left non-dominant side - Elevation of levels of lactic acid dehydrogenase [LDH] - Other specified noninfective gastroenteritis and colitis - Obstructive sleep apnea (adult) (pediatric) - Acute and chronic respiratory failure with hypercapnia - Dehydration - remote computer terminal operator (current) use of antithrombotics/antiplatelets - Hyperlipidemia, unspecified - Constipation, unspecified - Acute kidney failure, unspecified - retirement (current) use of opiate analgesic - Other specified abnormal findings of blood chemistry - Atelectasis - Severe sepsis with septic shock - Morbid (severe) obesity due to excess calories - Obstructive sleep apnea (adult) (pediatric) - Dehydration - Metabolic encephalopathy - Constipation, unspecified - Acute and chronic respiratory failure with hypercapnia - Benign prostatic hyperplasia without lower urinary tract symptoms - Sepsis, unspecified organism - Pain in right ankle and joints of right foot - remote computer terminal operator (current) use of antithrombotics/antiplatelets - remote computer terminal operator (current) use of aspirin - Contact with and (suspected) exposure to other viral communicable diseases - Severe sepsis with septic shock - 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cting left non-dominant side - Elevation of levels of lactic acid dehydrogenase [LDH] - Body mass index [BMI] 32.0-32.9, adult - Type 2 diabetes mellitus with diabetic peripheral angiopathy without gangrene - Metabolic encephalopathy - Chronic systolic (congestive) heart failure - Pain in right ankle and joints of right foot - Gastro-esophageal reflux disease without esophagitis - Hyperlipidemia, unspecified - Contact with and (suspected) exposure to other viral communicable diseases - retirement (current) use of aspirin - Gastro-esophageal reflux disease without esophagitis - Patient's noncompliance with other medical treatment and regimen - Chronic systolic (congestive) heart failure - Elevation of levels of lactic acid dehydrogenase [LDH] - Chronic pain syndrome - Body mass index [BMI] 32.0-32.9, adult - Body mass index [BMI] 32.0-32.9, adult - Other specified noninfective gastroenteritis and colitis - Patient's noncompliance with other medical treatment and regimen - Iron deficiency anemia, unspecified - Other senior living (current) drug therapy - Atelectasis - Other senior living (current) drug therapy 02/11/2020 18:[address] [facility] [place] TYPE: Medical Surgical COMPLAINT: - STOOL [...] - Chronic diastolic (congestive) heart failure - remote computer terminal operator (current) use of antithrombotics/antiplatelets - Hypertensive heart disease with heart failure - Obstructive sleep apnea (adult) (pediatric) - Fecal impaction - Benign prostatic hyperplasia without lower urinary tract symptoms - retirement (current) use of insulin - Hyperlipidemia, unspecified - remote computer terminal operator (current) use of aspirin - Type 2 diabetes mellitus with diabetic peripheral angiopathy without gangrene - Chronic diastolic (congestive) heart failure - remote computer terminal operator (current) use of aspirin - Type 2 diabetes mellitus with foot ulcer - Adverse effect of unspecified narcotics, initial encounter - Type 2 diabetes mellitus with diabetic peripheral angiopathy without gangrene - Contact with and (suspected) exposure to other viral communicable diseases - 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cting left non-dominant side - Atherosclerotic heart disease of [place] coronary artery without angina pectoris - Other senior living (current) drug therapy - Other senior living (current) drug therapy - Benign prostatic hyperplasia without lower urinary tract symptoms - remote computer terminal operator (current) use of antithrombotics/antiplatelets - Patient's noncompliance with other medical treatment and regimen - Chronic pain syndrome - Contact with and (suspected) exposure to other viral communicable diseases - Dehydration - Type 2 diabetes mellitus with diabetic polyneuropathy - Fecal impaction - remote computer terminal operator (current) use of insulin - Dehydration - Type 2 diabetes mellitus with foot ulcer - Type 2 diabetes mellitus with diabetic polyneuropathy - Patient's noncompliance with other medical treatment and regimen - Vomiting, unspecified - Chronic pain syndrome - Atherosclerotic heart disease of [place] coronary artery without angina pectoris 01/24/2020:05 [facility] [place] TYPE: Medical Surgical COMPLAINT: - ACUTE HYPOXIC RESPIRATORY FAILURE DIAGNOSES: - Chronic systolic (congestive) heart failure - Carbuncle of back [any part, except buttock] - Iron deficiency anemia, unspecified - Hyperlipidemia, unspecified - Gastro-esophageal reflux disease without esophagitis - Dorsalgia, unspecified - remote computer terminal operator (current) use of insulin - Personal history of traumatic brain injury - Unspecified open wound, right lower leg, initial encounter - 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cting left non-dominant side - Acute respiratory failure with hypoxia - Other senior living (current) drug therapy - Chronic pain syndrome - 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 - remote computer terminal operator (current) use of opiate analgesic - Type 2 diabetes mellitus with diabetic peripheral angiopathy without gangrene - Contact with and (suspected) exposure to other viral communicable diseases - Metabolic encephalopathy - Obstructive sleep apnea (adult) (pediatric) - Type 2 diabetes mellitus with diabetic polyneuropathy - retirement (current) use of non-steroidal anti-inflammatories (NSAID) - Benign prostatic hyperplasia without lower urinary tract symptoms - Hyperkalemia - Pneumonia due to other Gram-negative bacteria - remote computer terminal operator (current) use of aspirin - remote computer terminal operator (current) use of antithrombotics/antiplatelets 08/23/2019 15:[address] [facility] K[facility]OP[facility] TYPE: Surgical Services DIAGNOSES: - Obesity, unspecified - Wedge compression fracture of T7-T8 vertebra, subsequent encounter for fracture with routine healing - compression fracture 08/08/2019 14:[address] [facility] [place] TYPE: Observation COMPLAINT: - ALTERED LEVEL [...] Vomiting, unspecified - Fever, unspecified - Hypoxemia [email or web address]
[2020-04-22] MEDS ORDERED: OMEPRAZOLE20 M1 PO (17:43)
[2020-04-22] MEDS ORDERED: ONGLYZA5 MG PO (17:44)
[2020-04-22] MEDS ORDERED: METFORMIN HCL1000 MG PO (17:45)
[2020-04-22] MEDS ORDERED: DOXYCYCLINE HY100 MG PO (18:12)
== END 2020-04-22 19:21 | disposition home or self-care (01) ==
LOC: ED 16:10
DX: E11.621 Type 2 diabetes mellitus with foot ulcer (principal); L97.419 Non-pressure chronic ulcer of right heel and midfoot with unspecified severity; E11.40 Type 2 diabetes mellitus with diabetic neuropathy, unspecified; E78.5 Hyperlipidemia, unspecified; K21.9 Gastro-esophageal reflux disease without esophagitis; I11.0 Hypertensive heart disease with heart failure; I50.9 Heart failure, unspecified; I25.2 Old myocardial infarction; D50.9 Iron deficiency anemia, unspecified; Z79.899 Other long term (current) drug therapy; Z79.82 Long term (current) use of aspirin; Z79.84 Long term (current) use of oral hypoglycemic drugs
CPT/HCPCS: 73610; 83605; 85025; 99283-25

== ENCOUNTER 2020-04-23 13:11 | Observation (INO) | payer OTHER ==
[~2020-04-23 13:11] MED LIST changes: +DOXYCYCLINE HY100 MG PO; +METFORMIN HCL1000 MG PO; +OMEPRAZOLE20 M1 PO
--- NOTE | 2020-04-23 20:00 | NUR ---
PT ARRIVED TO THE FLOOR FROM ED, 3PA TRANSFER TO M/S BED, VITALS TAKEN, TELE MONITOR SUPPLIED, RN TO APPLY LEADS, CHARGE IN IN RM FOR ADMISSION ASSESSMENT
--- NOTE | 2020-04-23 20:15 | NUR ---
pt ARRIVES TO [place] FLOOR VIA STRETCHER, 3PA TO MOVE pt TO HOSPITAL BED. pt MIREYA SÁNCHEZ, FREEDOM BOUND AT [facility]. ORIENTATION TO ROOM PROVIDED. ATTENDS IN PLACE, CHUX UNDER pt. pt DENIES NEED TO VOID AT THIS TIME. TELE 6 PLACED ON pt PER ORDERS. ICE WATER PROVIDED. pt RATES PAIN 5/10 IN RIGHT FOOT. PRN PAIN MEDICATION ADMINISTERED REQUESTED. CALL LIGHT IN REACH. PERSONAL SUPPLIES IN REACH, pt NOW WATCHING TV. PRIMARY RN IN ROOM.
--- NOTE | 2020-04-23 20:37 | NUR ---
LAYING IN BED, ON ROOM AIR AT THIS TIME, LUNGS DIM AT BASES WITH FAINT CRACKLES, SATS 92% ROOM AIR. EDEMA l HAND SLIGHT CONTRACTURE PRESENT TOO. SKIN SCALY, DRY, SCABBED OVER AREA LOWER LEGS, HEALING, DRESSING BILAT HEELS. WHEELCHAIR BASELINE. SLIGH REDNESS AT LUISITO AREA. COOP WITH ASSESSMENT CBG DONE ON ADMIT RECEIVED 1 UNIT SS HUMALOG INSULIN. WATCHING TV, WAS MEDICTED WITH OXYCODONE C/O FEET PAIN. CALM. CALL LIGHT AND FLUIDS AT BEDSIDE. IVF INFUSING
--- NOTE | 2020-04-23 21:49 | NUR ---
IN TO PROVIDE PT A WARM BLANKET, PT DENIES INCNT AT THIS TIME
--- NOTE | 2020-04-23 23:54 | EKG ---
[facility] [address] [place] [address] Signed Normal sinus rhythm Inferior infarct , age undetermined Abnormal ECG Confirmed by LEXIE RAGSDALE MD ([id number]) on 04/23/2020 11:54:30 PM Electronically Signed By: LEXIE RAGSDALE MD 04/23/20 2354 PATIENT NAME: SAROJ AMEZQUITA Electrocardiogram DATE OF : 49 PHYSICIAN: LEXIE RAGSDALE MD REPORT #: [id number] REPORT IS CONFIDENTIAL AND NOT TO BE RELEASED WITHOUT AUTHORIZATION
--- NOTE | 2020-04-24 00:13 | NUR ---
LAYING ON L SIDE, NO RESP DISTRESS, IVF INFUSING, ATTENDS DRY. LEGS ELEVATED
--- NOTE | 2020-04-24 02:30 | NUR ---
IN TO GET VITALS, CHANGE PT DUE TO INCT OF VOID AND SMEAR BM, NO FURTHER NEEDS AT THIS TIME
--- NOTE | 2020-04-24 02:50 | NUR ---
Awakes easily, turned, repositioned, Incontinent of large amounts of urine, . Red penis-scrotum andperi area, barrier cream applied. Had a smear of bm when wiping, no loose stools. clean attends in place. Coop with assessment, fresh water and apple juice given on requests, Tele#[address], SR, no c/o pain or sob. Deficit L side, contracture of L hand present, very pale skin. tolerating liquids well, no n/v, uses call light.
--- NOTE | 2020-04-24 05:27 | NUR ---
Awake, watching tv, turned and reposioned, to R side, Incontinent of urine, red osmani area and edematous penis and scrotum. skin care and barrier cream applied. Pt is incontinent of bowel and bladder baseline. stool sample for C-diff to be obtained if pt has more loose stools, no loose stools this shift. L sided rresidual hemiparesis present. contractures of L hand, elevated. IVF infusing, dressing to L heel and band aid to R knee, scabbed over areas over legs healing. CBG was 168 received 1 unit ss insulin. Tolerating fluids well. uses call light, calm and receptive
--- NOTE | 2020-04-24 05:28 | NUR ---
IN TO GET VITALS, CHANGED PT DUE TO INCT OF VOID, NO FURTHER NEEDS AT THIS TIME
--- NOTE | 2020-04-24 06:48 | NUR ---
Nasim from [facility] called for updates on Pt
--- NOTE | 2020-04-24 07:23 | NUR ---
REPORT RECEIVED FROM ELLIOT STEEN. THIS ELLIOT RUBIO ASSUMING CARE OF PT WITH ASSISTANCE NEEDED FROM THIS RN. PT RESTING IN BED ON RIGHT SIDE WITH EYES CLOSED. RESPIRATIONS EVEN, MILD ABDOMINAL MUSCLE USE NOTED WITH INSPIRATION. HEAD OF BED ELEVATED TO 30 DEGREES. O2 SATURATION AT 93% ON ROOM AIR. BED RAILS UP. CALL LIGHT WITHIN REACH. PT ALLOWED TO REST.
--- NOTE | 2020-04-24 07:50 | NUR ---
PT AWAKE. BLOOD SUGAR CHECK COMPLETE = 156. PT DENIES PAIN AND NAUSEA AND REQUESTS BREAKFAST. BREAKFAST ORDER PLACED. PT DENIES ADDITIONAL REQUESTS OR COMPLAINTS. CALL LIGHT WITHIN REACH. BED RAILS UP.
--- NOTE | 2020-04-24 08:20 | NUR ---
PT CALL LIGHT ON. PT REQUESTS WARM BLANKET. WARM BLANKET PROVIDED REQUESTED. NO ADDITIONAL REQUESTS OR COMPLAINTS. PT WATCHING TV AND ANTICIPATING DISCHARGE TODAY. CALL LIGHT WITHIN REACH. BED RAILS UP.
--- NOTE | 2020-04-24 09:00 | NUR ---
REPORT RECEIVED FROM NIGHT RN AND PT. CARE RESUMED. BLOOD GLUCOSE WAS 156 AND 1 UNIT HUMALOG ADMIN. PT. PT. ATTENDS CHANGED. BUTTOX AND SCROTUM IS RED AND SORE. PERICARE PERFORMED AND BARRIER CREAM APPLIED. FOOT WOUNDS ARE DRESSED. RIGHT FOOT IS WRAPPED IN DK BANDAGE AND SMALL AMOUNT OF SERISANGINOUS DRAINAGE PRESENT. FOOT ELEVATED WITH PILLOW AND CHUX. CRACKLES PRESENT IN LLL. PT. REPOSITIONED BY 2 STAFF. PT. LEFT RESTING UPRIGHT IN BED WITH CALL LIGHT IN REACH.
--- OUTSIDE RECORDS SUMMARY | 2020-04-24 10:04 | XMS ---
PreManage Notification: SAROJ AMEZQUITA Security Record Press Tender Events No recent Security Events currently on file CRITERIA MET - History of Sepsis Dx - PDMP - [facility] - 2 Visits in 30 Days CARE PROVIDERS [facility] [employer]. \[facility]StarNOR[facility]WE[facility] [employer] PHONE: [phone] ALON [facility] 01/08/2019-Current PHONE: [phone] Leonard Lopez DO [facility] Current PHONE: [phone] [place] [facility] \F\ [facility]/Center: FRANCA 03/27/2019-[facility] PHONE: [phone] Jalen has no Care Guidelines for this patient. Care History Medical/Surgical 03/27/2019 [facility] - PATIENT HAS PCP-DR ROSLYN JONES AT THE [facility] HIS PCP- - LAST VISIT WITH DR JONES WAS ON 02/05/19 AND PT WAS SCHEDULED FOR PATIENT- PATIENT WAS SUPPOSED TO BE SEEN ON 03/22/2019 FOR PT - PROVIDER DOES NOT HAVE RECORDS. - PATIENT RECENTLY HAD A GEC DONE BY THE [place] PROVIDER IN OCTOBER 2018. - CHW WILL HAVE ALL RECENT ED RECORDS SENT TO PCP AT THE [place]-PATIENT DOES NOT HAVE DR CHI PCP. EMiguel Angel VISIT COUNT (12 MO.) [address] [facility] TOTAL 9 NOTE: Visits indicate total known visits. ED/UCC VISIT TRACKING (12 MO.) 04/23/2020 13:12 [facility] [place] TYPE: Emergency COMPLAINT: - LETHARGIC, POSSIBLE INFECTION 04/22/2020 16:12 [facility] [place] TYPE: Emergency COMPLAINT: - R FOOT WOUND 02/24/2020 09:19 [facility] [place] TYPE: Emergency COMPLAINT: - ABDOMINAL 02/11/2020 14:06 [facility] [place] TYPE: Emergency COMPLAINT: - POSSIBLE GI 01/24/2020 11:46 [facility] [place] TYPE: Emergency COMPLAINT: - FALL 08/23/2019 08:28 [facility] [place] TYPE: Emergency COMPLAINT: - MULTIPLE COMPLAINTS DIAGNOSES: - [facility] (current) use of insulin - Anemia, unspecified - Acute pancreatitis without necrosis or infection, unspecified - Type 2 diabetes mellitus with diabetic polyneuropathy - Exposure to other specified factors, initial encounter - Constipation, unspecified - termite renewal inspector (current) use of aspirin - Unspecified abdominal pain - Unspecified fracture of T7-T8 vertebra, initial encounter for closed fracture - termite renewal inspector (current) use of antithrombotics/antiplatelets - Other parts counterman (current) drug therapy 08/08/2019 14:55 [facility] [place] TYPE: Emergency COMPLAINT: - SEPSIS 05/18/2019 15:02 [facility] [place] TYPE: Emergency COMPLAINT: - ARM SWELLING DIAGNOSES: - Presence of cardiac and vascular implant and graft, unspecified - termite renewal inspector (current) use of insulin - Personal history of nicotine dependence - Post-traumatic stress disorder, unspecified - Other [facility]ci (current) drug therapy - Other specified soft tissue disorders - Pain in right upper arm - Type 2 diabetes mellitus with diabetic polyneuropathy - [facility] (current) use of aspirin 04/24/2019 13:13 [facility] [...] syndrome - Iron deficiency anemia, unspecified - termite renewal inspector (current) use of opiate analgesic - Other specified abnormal findings of blood chemistry - 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cting left non-dominant side - Elevation of levels of lactic acid dehydrogenase [LDH] - Other specified noninfective gastroenteritis and colitis - Obstructive sleep apnea (adult) (pediatric) - Acute and chronic respiratory failure with hypercapnia - Dehydration - termite renewal inspector (current) use of antithrombotics/antiplatelets - Hyperlipidemia, unspecified - Constipation, unspecified - Acute kidney failure, unspecified - [facility] (current) use of opiate analgesic - Other [...] ankle and joints of right foot - [facility] (current) use of antithrombotics/antiplatelets - [facility] (current) use of aspirin - Contact with [...] exposure to other viral communicable diseases - [facility] (current) use of aspirin - Gastro-esophageal reflux [...] - Iron deficiency anemia, unspecified - Other parts counterman (current) drug therapy - Atelectasis - Other parts counterman (current) drug therapy 02/11/2020 18:[address] [...] - Chronic diastolic (congestive) heart failure - [facility] (current) use of antithrombotics/antiplatelets - Hypertensive heart disease with heart failure - Obstructive sleep apnea (adult) (pediatric) - Fecal impaction - Benign prostatic hyperplasia without lower urinary tract symptoms - [facility] (current) use of insulin - Hyperlipidemia, unspecified - [facility] (current) use of aspirin - Type 2 diabetes mellitus with diabetic peripheral angiopathy without gangrene - Chronic diastolic (congestive) heart failure - termite renewal inspector (current) use of aspirin - Type 2 diabetes mellitus with foot ulcer - Adverse effect of unspecified narcotics, initial encounter - Type 2 diabetes mellitus with diabetic peripheral angiopathy without gangrene - Contact with and (suspected) exposure to other viral communicable diseases - 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cting left non-dominant side - Atherosclerotic heart disease of [place] coronary artery without angina pectoris - Other parts counterman (current) drug therapy - Other [facility]ci (current) drug therapy - Benign prostatic hyperplasia without lower urinary tract symptoms - [facility] (current) use of antithrombotics/antiplatelets - Patient's noncompliance with other medical treatment and regimen - Chronic pain syndrome - Contact with and (suspected) exposure to other viral communicable diseases - Dehydration - Type 2 diabetes mellitus with diabetic polyneuropathy - Fecal impaction - termite renewal inspector (current) use of insulin - Dehydration - Type 2 diabetes mellitus with foot ulcer - Type 2 diabetes mellitus with diabetic polyneuropathy - Patient's noncompliance with other medical treatment and regimen - Vomiting, unspecified - Chronic pain syndrome - Atherosclerotic heart disease of [place] coronary artery without angina pectoris 01/24/2020 18:05 [facility] [place] TYPE: Medical Surgical COMPLAINT: - ACUTE HYPOXIC RESPIRATORY FAILURE DIAGNOSES: - Chronic systolic (congestive) heart failure - Carbuncle of back [any part, except buttock] - Iron deficiency anemia, unspecified - Hyperlipidemia, unspecified - Gastro-esophageal reflux disease without esophagitis - Dorsalgia, unspecified - [facility] (current) use of insulin - Personal history of traumatic brain injury - Unspecified open wound, right lower leg, initial encounter - 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cting left non-dominant side - Acute respiratory failure with hypoxia - Other parts counterman (current) drug therapy - Chronic pain syndrome - 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 - [facility] (current) use of opiate analgesic - Type 2 diabetes mellitus with diabetic peripheral angiopathy without gangrene - Contact with and (suspected) exposure to other viral communicable diseases - Metabolic encephalopathy - Obstructive sleep apnea (adult) (pediatric) - Type 2 diabetes mellitus with diabetic polyneuropathy - termite renewal inspector (current) use of non-steroidal anti-inflammatories (NSAID) - Benign prostatic hyperplasia without lower urinary tract symptoms - Hyperkalemia - Pneumonia due to other Gram-negative bacteria - termite renewal inspector (current) use of aspirin - [facility] (current) use of antithrombotics/antiplatelets 08/23/2019 15:58 [facility] Ely GonsalezDidi Reed [place] TYPE: Surgical Services DIAGNOSES: - Obesity, unspecified [...] Vomiting, unspecified - Fever, unspecified - Hypoxemia [email or web address]
[2020-04-24] MEDS ORDERED: BASAGLAR K100 UNIT/1 SUB-Q (11:01)
--- NOTE | 2020-04-24 11:10 | NUR ---
Notified by staff, Dr. Ruano is writting dc orders. Called and confirmed with [facility] pt may return and pt accepted by [facility]. I will contact EMS as pt is unable to transport in a wc van. Called and spokew eve Mckinney at [facility]. Her crew would prefer to transfer pt now instead of at 1 pm. Will notify RN. Nonemergent transport form completed and given to Daily. Will fax dc summary when completed to [facility].
--- NOTE | 2020-04-24 11:37 | NUR ---
NON EMERGENT TRANSPORT STATES THEY WILL BE ARRIVING SOON. THIS RN TO ROOM WITH CRISS STEPHEN TO PREPARE PT FOR DISCHARGE. DEPENDS CHANGED, SOILED WITH YELLOW URINE. LUISITO CARE DONE. BARRIER CREAM APPLIED. FRESH DEPENDS, GOWN, PANTS, SOCKS AND HEEL PROTECTORS IN PLACE. VITAL SIGNS STABLE. IV DC'D PER PROTOCOL. GAUZE AND COBAN APPLIED. DISCHARGE PLAN REVEIWED WITH PT, PT VERBALIZES UNDERSTANDING OF DISCHARGE PLAN AND STATES HIS QUESITONS HAVE ALL BEEN ANSWERED. ORAL CARE DONE. NO ADDITIONAL REQUESTS OR COMPLAINTS. AWAITING NON EMERGENT TRANSPORT ARRIVAL.
[2020-04-24] MEDS ORDERED: BISACODYL10 MG PR (11:42)
[2020-04-24] MEDS ORDERED: HYDROCODON-ACE1 EA10 PO (11:44)
[2020-04-24] MEDS ORDERED: TUMS200 MG PO (11:45)
--- NOTE | 2020-04-24 11:47 | NUR ---
MED REC COMPLETE
--- NOTE | 2020-04-24 11:50 | NUR ---
[facility] TRANSPORT ARRIVED TO TAKE PT BACK TO [place]. REPORT GIVEN TO SABRINA. PT TRANSFERED TO [facility] WITH 4 PERSON ASSIST. PT REPORTS 4/10 PAIN IN HIS RIGHT HEAL AND STATES HE NEEDS PAIN MEDICATION BEFORE DISCHARGE. SEE MAR FOR MEDICATION GIVEN. WARM BLANKET PROVIDED. PT LEFT WITH NON EMERGENT TRANSPORT SERVICES.
--- NOTE | 2020-04-24 12:44 | NUR ---
REPORT CALLED TO ELLIOT OROURKE AT [facility]. SHARAD STATES HER QUESTIONS HAVE BEEN ANSWERED.
== END 2020-04-24 11:50 ==
LOC: ED 13:11 → MS 13:13
PROVIDERS: ADMIT Internal Medicine; ATTEND Internal Medicine
DX: D72.829 Elevated white blood cell count, unspecified (principal); R53.1 Weakness; R53.81 Other malaise; E87.5 Hyperkalemia; R11.0 Nausea; R91.8 Other nonspecific abnormal finding of lung field; R19.7 Diarrhea, unspecified; K62.89 Other specified diseases of anus and rectum; E11.621 Type 2 diabetes mellitus with foot ulcer; L97.419 Non-pressure chronic ulcer of right heel and midfoot with unspecified severity; M54.9 Dorsalgia, unspecified; Z20.822 Contact with and (suspected) exposure to COVID-19; G89.29 Other chronic pain; I11.0 Hypertensive heart disease with heart failure; I50.22 Chronic systolic (congestive) heart failure; E11.42 Type 2 diabetes mellitus with diabetic polyneuropathy; I69.954 Hemiplegia and hemiparesis following unspecified cerebrovascular disease affecting left non-dominant side; E78.5 Hyperlipidemia, unspecified; K21.9 Gastro-esophageal reflux disease without esophagitis; D50.9 Iron deficiency anemia, unspecified; I25.2 Old myocardial infarction; E11.51 Type 2 diabetes mellitus with diabetic peripheral angiopathy without gangrene; I25.10 Atherosclerotic heart disease of native coronary artery without angina pectoris; Z98.61 Coronary angioplasty status; Z79.82 Long term (current) use of aspirin; Z79.02 Long term (current) use of antithrombotics/antiplatelets; Z79.84 Long term (current) use of oral hypoglycemic drugs
CPT/HCPCS: 36415; 71045; 80048; 80053; 81001; 83605; 84484; 85025; 87040; 87077; 87088; 87186; 93005; 93010; 96374; 99284-25; C9803; G0378; J1815; J2405; J7030; U0003

== ENCOUNTER 2020-04-24 15:43 | Inpatient (IN) | payer OTHER ==
[~2020-04-24 15:43] MED LIST changes: +BISACODYL10 MG PR
--- NOTE | 2020-04-24 16:15 | NUR ---
Patient arrives from [facility] via cart with EMS for admission to [facility] to be admitted for Sepsis treatment. Transferred to bed. Vital signs obtained. Patient alert and oriented at this time.
--- NOTE | 2020-04-24 16:16 | NUR ---
MED REC COMPLETE
--- NOTE | 2020-04-24 16:45 | NUR ---
ASSESSMENT + VITALS + INTAKE Pt arrives to room. Pt vitals taken and initial assessment completed. MD Ceballos to bedside to change dressings on right heel and left foot. Pt tolerated well. Pt VSS and assessment charted. Pt settled in room. Pt denies pain, nausea, and needs at this time. Pt in bed, side rails up x4, table and call light within reach. Pt put on a Q2 turn schedule and positioned to comfort, extra pillows on his left side for support. Pt has left sided weakness and deficits since his CVA.
--- NOTE | 2020-04-24 17:00 | NUR ---
CBG + INSULIN + FLUIDS Pts fluids hung and started as ordered. Pts CBG was 217, 3 units of insulin given per sliding scale orders. Pt ordered dinner and is having an apple juice while he waits. Pt in bed, table and call light within reach.
--- NOTE | 2020-04-24 19:13 | NUR ---
pt CALLING OUT NURSE. pt HOLDING CALL LIGHT, REQUESTED THAT ROOM LIGHTS BE TURNED OFF. WHITEBOARD UPDATED. CALL LIGHT REMAINS IN HAND.
--- NOTE | 2020-04-24 19:19 | NUR ---
THE NURSE AND I CHANGED HIM AND TURNED HIM ALSO.
--- NOTE | 2020-04-24 20:45 | NUR ---
CALL LIGHT ON, PT STATES HE NEEDS HELP, BEEN LAYING ON HIS SIDE FOR OVER TWO HOURS, BOOSTED PT AND ADJ PILLOWS, PT REQUESTING A SNACK AND JUICE, INFORMED PT I NEED TO CHAT WITH PRIMARY RN BEFORE PROVIDING, DUE TO GLUCOSE MONITERING, PT AGREEABLE, OKAY WITH WATER FOR THE TIME BEING, RN TO BE IN RM SHORTLY
--- NOTE | 2020-04-24 20:56 | NUR ---
ASSISTED CRISS GILES IN REPOSITIONING PT IN BED. HE WANTED TO HAVE NO PILLOWS UNDERNEATH HIM FOR A WHILE. PT ASKED ABOUT HIS MEDICATIONS AND A SNACK, WILL CHECK WITH PRIMARY RN ABOUT THEM. CALL LIGHT IS CLOSE.
--- NOTE | 2020-04-24 21:30 | NUR ---
IN TO DO ASSESSMENT. pt LAYING IN BED WATCHING TV. REPORTED 5/10 PAIN IN BACK. PRN GIVEN WITH SCHEDULED MEDICATIONS. ASSESSMENT DONE. pt HAS MULTIPLE SCABS ON BOTH LEGS. DEPENDS DRY AT THIS TIME. REPOSITIONED TO FLOAT HIPS. pt REPORTED "I'M BEST ON MY BACK." DRESSING TO FEET CDI. POSSESSIONS WITHIN REACH. CALL LIGHT IN HAND. NO FURTHER REQUESTS AT THIS TIME.
--- NOTE | 2020-04-24 21:36 | NUR ---
IN TO FLOAT PT AT HIPS WITH RN, TRASH EMPTIED, NO FURTHER NEEDS AT THIS TIME
--- NOTE | 2020-04-24 22:15 | NUR ---
CALL LIGHT ON, PT WANTS TO SIT UP THE WHEELCHAIR, ABLE TO TRY SETTING THE BED TO A RECILNED CHAIR POS. FIRST, PT TRYING THIS NEW POSITION
--- NOTE | 2020-04-24 22:50 | NUR ---
IN TO ASST PT 2PA MIREYA OVER TO THE CHAIR, CHANGED PT DUT TO INCT FIRST, PT THEN DECLINES NEED TO SIT IN THE CHAIR, NO FURTHER NEEDS AT THIS TIME
--- NOTE | 2020-04-24 22:55 | NUR ---
IN TO HELP pt UP TO WHEELCHAIR. CHANGED DEPENDS. pt DENIES DESIRE TO BE IN CHAIR. ADJUSTED BED. NO FURTHER REQUESTS AT THIS TIME. CALL LIGHT WITHIN REACH.
--- NOTE | 2020-04-25 00:21 | NUR ---
PT IS RESTING WITH EYES CLOSED, RR IS EVEN AND NONLABORED. CALL LIGHT IS CLOSE.
--- NOTE | 2020-04-25 01:47 | NUR ---
VS TAKEN AND ENTERED. PT REPORTS A HEADACHE 09/27. ADMINISTERED TYLENOL. PT DENIES FURTHER NEEDS AT THIS TIME. CALL LIGHT IS CLOSE.
--- NOTE | 2020-04-25 02:41 | NUR ---
PT CALLING OUT MULTIPLE TIMES, RN INTO ROOM. PT STATES "I FEEL BLAH." PT C/O NAUSEA, ZOFRAN GIVEN. PT READJUSTED IN BED WITH ASSIST OF MEDINA ZARATE. ATTENDS CHANGED. PT TOLARATED FAIR. MEDINA ZARATE REMAINS IN ROOM.
--- NOTE | 2020-04-25 02:50 | NUR ---
CHANGED PT'S ATTENDS AND REPOSITIONED PT WITH HELP OF MAHOGANY ZARATE. RED AREA ON COCCYX NOTED AND BLANCHABLE. PT DENIES FURTHER NEEDS AT THIS TIME. CALL LIGHT IS CLOSE.
--- NOTE | 2020-04-25 04:06 | NUR ---
PT IS RESTING WITH EYES CLOSED, RR IS EVEN AND NONLABORED. CALL LIGHT IS CLOSE.
--- NOTE | 2020-04-25 06:00 | NUR ---
WITH HELP OF ROGE ZARATE WE CHANGED PT'S ATTENDS AND REPOSITIONED PT. VS AND I&O'S ENTERED. PT REPORTS PAIN AT 7/10, ADMINISTERED NORCO. PT HAS FRESH ICEWATER AMD DENIES FURTHER NEEDS. CALL LIGHT IS CLOSE.
--- NOTE | 2020-04-25 07:33 | NUR ---
REPORT FROM ASSEMBLER BONDING RN, MEDINA. DR. CRUZ INDICATED THAT HE WOULD SEE PATIENT TOMORROW. DR. RAGSDALE IS AWARE.
--- NOTE | 2020-04-25 08:21 | NUR ---
MORNING ASSESSMENT DONE, PATIENT SITTING UP IN BED TO EAT BREAKFAST. MORNING MEDICATIONS GIVEN. PATIENT REPORTS 5/10 PAIN AND THIS IS HIS PAIN GOAL.
--- NOTE | 2020-04-25 09:34 | NUR ---
PATIENT RESTING IN BED, IVF INFUSING, MRSA CONTACT PRECAUTIONS PLACED OUTSIDE OF ROOM.
--- NOTE | 2020-04-25 11:30 | NUR ---
PATIENT SLEEPING WITH REGULAR RESPIRATIONS.
--- NOTE | 2020-04-25 11:40 | NUR ---
PT RESTING IN BED, SAID HE DID NOT GET MUCH SLEEP LAST NIGHT. HOPES TO REST MORE TODAY. SEEMS DISCOURAGED HE IS HERE, FRIENDLY, FELL ASLEEP DURING VISIT GAVE BLESSING, WILL FOLLOW
--- NOTE | 2020-04-25 12:25 | NUR ---
PATIENT IS DONE HAVING ECHO, AWAKE AND SITTING UP IN BED FOR LUNCH.
--- NOTE | 2020-04-25 13:40 | NUR ---
PATIENT REPOSITIONED TO LEFT SIDE. PATIENT ATE 10% OF LUNCH, GIVEN ONE NORCO FOR 6/10 BACK PAIN.
--- NOTE | 2020-04-25 14:20 | NUR ---
Attempted to see pt, he is preparing for PICC line placement. Please see case management assessment on pt. from earlier in the day.
--- NOTE | 2020-04-25 15:07 | NUR ---
PATIENT HAS PICC TO RIGHT ARM, AWAITING X-RAY CONFIRMATION.
--- NOTE | 2020-04-25 15:12 | NUR ---
PICC LINE INSERTION NOTE WAS ASKED TO PLACE A PICC LINE BY DR. RAGSDALE FOR IV VANCO FOR AN UNKNOWN AMOUNT OF TIME. THE PT WAS EDUCATED ABOUT THE RISKS AND BENEFITS OF THE PROCEDURE. THE PT REPORTS HE HAS HAD ONE BEFORE AND KNOWS ABOUT IT. PT AGREES TO THE PROCEDURE AND SIGNS THE CONSENT. PT'S RIGHT ARM WAS EVALUATED. THE BRACHIAL ARTERY AND VEIN WERE VISUALIZED. THE BRACHIAL VEIN WAS LOCATED UNDER AND TO THE RIGHT OF THE BRACHIAL ARTERY. THE BASILIC VEIN WAS THAN VISUALIZED AND EASILY COMPRESSED. ACCORDING TO SITE RITE 8 ULTRASOUND THE 4 FR PICC LINE WOULD ONLY TAKE UP APPROXIMATELY 24% OF THE VEIN WITH NO TOURNIQUET ON. THE BASILIC VEIN WAS ACCESSED ON THE FIRST ATTEMPT. THE IV GUIDEWIRE, INTRODUCER, AND PICC LINE ALL ADVANCED INTO THE VEIN EASILY. BRISK, RED, NONPULSITILE BLOOD WAS RETURNED ON THE IV AND INTRODUCER INSERTION. THE PICC LINE DRAWS BLOOD. FLUSHES EASILY. DRESSING APPLIED AND PT GIVEN BACK HIS BELONGINGS. PT THANKFUL AT THE END OF THE PROCEDURE. BED RAILS UP X3, CALL LIGHT PROVIDED.
--- NOTE | 2020-04-25 15:39 | NUR ---
PICC LINE IS OKAY TO USE, CONFIRMED BY PICC LINE NURSE IRMA.
--- NOTE | 2020-04-25 16:16 | NUR ---
WASHED PATIENT'S FACE THIS MORING. SET HIM UP FOR BREAKFAST. WASHED HIS BACK.
--- NOTE | 2020-04-25 16:18 | NUR ---
ORDERED PATIENT'S DINNER AND BREAKFAST AFTER HE TOLD ME WHAT HE WANTED. PATIENT IS RESTING WITH HEAD UP AND 1 LITTER OF OXYGEN.
--- NOTE | 2020-04-25 17:34 | NUR ---
PATIENT IS SITTING UP IN BED TO EAT DINNER, DENIES OTHER NEEDS. PATIENT ENDORSES FEELING SLIGHTLY BETTER TODAY, IS STILL SLEEPY, MODERATE TO POOR APPETITE AT THIS TIME.
--- NOTE | 2020-04-25 19:00 | NUR ---
PT LYING IN BED. SHIFT REPORT RECIEVED BY RN. CRISS'S IN ROOM ASSISTING WITH PT CARE. CALL LIGHT IN REACH.
--- NOTE | 2020-04-25 19:35 | NUR ---
WITH HELP OF HAILEE KAHN WE CHANGED PT'S ATTENDS. BARRIER CREAM APPLIED AND REPOSITIONED PT WITH PILLOWS UNDER HIS RT SIDE. CLEAN GOWN IS IN PLACE AND PT DENIES FURTHER NEEDS. CALL LIGHT IS CLOSE.
--- NOTE | 2020-04-25 20:30 | NUR ---
PT LYING IN BED. EYES CLOSED. RR WNL WITH UNLABORED BREATHING. WHITE BOARD CLEARED. SCHEDULED MEDS GIVEN. VS STABLE. PT DENIES SOB AND PAIN. ASSESSMENT COMPLETE. I AND O'S DONE. GAUZE AND DRESSING INTACT ON R FOOT. NO DRAINAGE NOTED. 1L O2 NC. CALL LIGHT IN REACH. NO FURTHER NEEDS AT THIS TIME.
--- NOTE | 2020-04-25 23:00 | NUR ---
PT LYING IN BED. EYES CLOSED.RR WNL WITH UNLABORED BREATHING. CALL LIGHT IN REACH.
--- NOTE | 2020-04-26 01:32 | NUR ---
PT LYING IN BED. REPLACED BRIEFS, REPOSITIONED PT TO THE LEFT SIDE. CALL LIGHT IN REACH.
--- NOTE | 2020-04-26 04:50 | NUR ---
IN TO ASST PT WITH RN, VITALS TAKEN, PT CHANGED DUE TO INCT, ICE WATER REFILLED, JUICE PROVIDED, NO FURTHER NEEDS AT THIS TIME
--- NOTE | 2020-04-26 04:51 | NUR ---
PT LYING IN BED. REPLACED BRIEFS, INCONT X1. REPOSITIONED PT IN BED. DENIES PAIN. ASSESSMENT COMPLETE. VS STABLE. NO CHANGES ON R FOOT. CAP REFILL LESS THAN 3 ON TOES. GAUZE AND DRESSING INTACT. NO DRAINAGE NOTED. CALL LIGHT IN REACH.
--- NOTE | 2020-04-26 07:15 | NUR ---
RECIEVED REPORT. PT LAYING IN BED EYES CLOSED. BED ELEVATED. LAB ARRIVED TO DRAW BLOOD. AWAKE TO VOICE. CALL LIGHT WITHIN REACH.
--- NOTE | 2020-04-26 07:30 | NUR ---
REPORT RECEIVED FROM ELLIOT VERDZUCO. PT RESTING IN BED WITH EYES CLOSED, HEAD OF BED ELEVATED TO 45 DEGREES. RESPIRATIONS EVEN AND UNALBORED. PT AWAKENS TO VOICE AND LIGHT TOUCH. PT DENIES REQUESTS OR COMPLAINTS. PT DENIES PAIN AND NAUSEA. LABS DRAWN BY ELLIOT VERDUZCO. CALL LIGHT WITHIN REACH. BED RAILS UP.
--- NOTE | 2020-04-26 08:00 | NUR ---
ROUNDED WITH DR CRUZ FOR DRESSING CHANGE TO RIGHT FOOT. WOUND BED PINK. PT W/O PAIN. ALLEVYN TO LEFT FOOT LEFT IN PLACE.
--- NOTE | 2020-04-26 08:15 | NUR ---
MORNING ASSESSMENT AND MEDICATION DUE. PT RESTING IN BED. DR. CRUZ AT BEDSIDE COMPLETING DRESSING CHANGE. PT DENIES PAIN AND NAUSEA EXCPET FOR PAIN IN "MY STOMACH BECUASE I'M HUNGRY!" ASSESSMENT DONE: PICC LINE ASSESSED, FLUSHES EASILY, NO BLOOD RETURN NOTED. ALTEPLASE INFUSED INTO LINE PER PROTOCOL AND PACKAGE INSERT INSTRUCTIONS. ALCOHOL CAP APPLIED.IV TO RIGHT HAND WNL.PT FOUND TO BE ON 1L O2 BY NC WITH O2 SATRUATIONS OF 95%. PT WEANED TO ROOM AIR AND MAINATINING O2 SATURATIONS ABOVE 90%. HEART MURMUR CONTINUES PER BASELINE. DEPENDS SOILED. LUISITO CARE DONE. DEPENDS CHANGED, REDNESS NOTED TO LUISITO AREA AND SCROTUM. MINOR SWELLING NOTED TO SCROTUM. BARRIER CREAM APPLIED. PT DENIES CONSTIPATION AND REFUSES MEDICATION ORDERED. EDUCATION DONE WITH PT. PT CONTINUES TO DECLINE BOTH MIRALAX AND SENNA. WOUND TO LEFT FOOT HAS ALLEVYN IN PLACE. LEFT IN PLACE PER DOCTOR CRUZ, UNABLE TO ASSESS AT THIS TIME. WOUND TO RIGHT HEAL ALSO COVERED WITH DRESSING PLACED BY DOCTOR CRUZ. GAUZE, XEROFORM, AND COBAN IN PLACED. WOUND REMAINS COVERED PER DR. MURPHY ORDER TO LEAVE DRESSING IN PLACE. UNABLE TO ASSESS AT THIS TIME.BOTH DRESSINGS ARE CLEAN DRY AND INTACT AT THIS TIME. BANDAID TO RIGHT KNEE REMOVED, SMALL AMOUNT OF RED DRAINGED NOTED TO ABRASION ON SKIN, ALLEVYN APPLIED. MIREYA LIFT WITH 3 PERSON ZION UP TO CHAIR FOR BREAKFAST. PT EATING BREAKFAST. NO ADDITIONAL REQUESTS OR COMPLAINTS AT THIS TIME. PT REMAINS UP TO CHAIR. CALL LIGHT WITHIN REACH.
--- NOTE | 2020-04-26 08:54 | NUR ---
3 person assist, patient into chair using angeles. Patient grumbling abotu his breakfast being cold, breakfast warmed up, unhappy with breakfast in general. Face and hands washed, brief and linens changed, barrier cream appplied. RN doing assessment. Call light in reach
--- NOTE | 2020-04-26 09:26 | NUR ---
CALL LIGHT ANSWERED, PT STATES HE IS COLD. WARM BLANKETS GIVEN. NO OTHER CONCERNS. CALL LIGHT WITHIN REACH.
--- NOTE | 2020-04-26 09:45 | NUR ---
Vancomycin trough = 25.0 mcg/ml. Reduce dose to 1000mg IV q 12 hr beginning at 1200 today
--- NOTE | 2020-04-26 10:14 | NUR ---
THIS RN TO ROOM TO CHECK ON PT. STUDENT RN, CHANELLE, AT BEDSIDES HELPING PT GET COMFORTABLE BACK IN BED. CHARGE NURSE GHISLAINE, STATES PICC LINE SHOWED GOOD BLOOD RETURN AND MAGNESIUM INFUSION WAS STARTED THROUGH PICC LINE. PT DENIES ADDITIONAL REQUESTS OR COMPLAINTS. PT DENIES PAIN AND NAUSEA. CALL LIGHT WITHIN REACH. BED RAILS UP.
--- NOTE | 2020-04-26 10:16 | NUR ---
PT REPORTS PAIN IN BOTTOM. REQUESTED TO BE RETURNED TO BED. 2 PERSON ASSIST W MIREYA TO BED. URINE INCONTINENT, CHANGED, AND BARRIER CREAM APPLIED. ACTIVASE REEVALUATED, SUFFICIENT BLOOD RETURN. FLUSHED WITH NS AND MAGNISIUM STARTED. WARM BLANKETS GIVEN AND CALL LIGHT WITHIN REACH.
--- NOTE | 2020-04-26 11:22 | NUR ---
MAGNESIUM INFUSION COMPLETE. 2ND MAGNESIUM INFUSION STARTED. BLOOD SUGAR = 213. LUNCH ORDER PLACED. PT DENIES PAIN AND NAUSEA. PT DECLINES REPOSITIONING. NO ADDITIONAL REQUESTS OR COMPLAINTS AT THIS TIME. CALL LIGHT WITHIN REACH.
--- NOTE | 2020-04-26 11:28 | NUR ---
PT LAYING IN BED W EYES CLOSED. MAGNISIUM WAS CHANGED AND 2ND DOSE INFUSING. PT DENIES CONCERNS, LUNCH ORDERED. CALL LIGHT WITHIN REACH.
--- NOTE | 2020-04-26 12:20 | NUR ---
LUNCH ARRIVED. PT AGREEABLE TO GETTING UP TO CHAIR. DEPENDS SOILED, LUISITO CARE DONE, BARRIER CREAM APPLIED. DEPENDS CHANGED. MIREYA LIFT WITH 2 PERSON ASSIST UP TO CHAIR. PT EATING LUNCH. INSULIN GIVEN (SEE MAR). NO ADDITIONAL REQUESTS OR COMPLAINTS AT THIS TIME. CALL LIGHT WITHIN REACH.
--- NOTE | 2020-04-26 12:25 | NUR ---
PT ASSISTED TO CHAIR, 2 PERSON ASSIST Ck GOMES. PATIENT UP TO CHAIR FOR LUNCH, INCONTINENT, CHANGED DEPENDS,AND BARRIER CREAM APPLIED. MAGNISIUM STILL ADMINISTERING IV. CALL LIGHT WITH REACH.
--- NOTE | 2020-04-26 12:40 | NUR ---
THIS RN TO START VANCO INFUSION WITH STUDENT RN. PICC LINE ASSESSED, WNL. BRISK BLOOD RETURN NOTED. VANCOMYACIN INFUSION STARTED (SEE MAR). PT FINISHED WITH LUNCH. PT DENIES REQUESTS OR COMPLAINTS AT THIS TIME. CALL LIGHT WITHIN REACH. PT REMAINS UP TO CHAIR.
--- NOTE | 2020-04-26 12:45 | NUR ---
PT IN CHAIR WITH LEGS ELEVATED. MAGNISIUM FINISHED, IV FLUSH, CHECKED BLOOD REUTRN, AND VANCO STARTED. PT STATES NO CONCERNS. CALL LIGHT WITHIN REACH.
--- NOTE | 2020-04-26 13:34 | NUR ---
PATIENT UP IN CHAIR, RESTING WITH EYES CLOSED. WOKE TO VOICE. VITALS AND I&OS CHARTED, 1LNC PROVIDED PATIENT WAS SATTING AT 86 WHILE SLEEPING. MOTOR GRADER ROUGH GRADE NOTIFIED.
--- NOTE | 2020-04-26 13:57 | NUR ---
Vitals and i&os charted. 3pa moved patient from chair to bed, per patient request. Brief changed.
--- NOTE | 2020-04-26 13:59 | NUR ---
AFTERNOON ASSESSMENT AND MEDICATION DUE. PT REMAINS UP TO CHAIR AND REQUESTS TO GET BACK TO BED. PT DENIES PAIN AND NAUSEA. ASSESSMENT DONE: BASELINE LEFT SIDED WEAKNESS AND NEUROPATHY TO LOWER EXTREMITIES CONTINUES. MIREYA LIFT AND 3 PERSON ASSIST BACK TO BED. LUISITO CARE DONE, DEPENDS CHANGED. SMALL STOOL SMEAR NOTED. PT REPORTS HIS LAST BOWEL MOVEMENT WAS "2 DAYS AGO." BARRIER CREAM APPLIED TO REDNESS NOTED OVER GLUTEAL AREA AND SCROTUM. MILD ABDOMINAL MUSCLE ACCESSORY USE NOTED. PT WAS PREVIOUSLY PLACED ON 1L O2 BY DC PER AIRCRAFT MOTOR MECHANIC'S AND ELLIOT SCANLON. ROOM AIR TRIAL ATTEMPTED, PT DROPS TO 88% ON ROOM AIR. PT PLACED BACK ON 1L O2 BY NC. O2 SATURATIONS CLIMB TO 95% ON 1L O2 BY DC. DRESSINGS REMAIN PLACED BY DR. CRUZ TO RIGHT AND LEFT FEET REMAIN IN PLACE AND ARE C/D/I, FULL WOUND ASSESSMENT NOT DONE AT THIS TIME PER DR. CRUZ'S ORDER TO LEAVE DRESSINGS IN PLACE. ORAL/DENTURE CARE COMPLETED BY STUDENT RN, CHANELLE. PT WATCHING TV AND RESTING WITH EYES CLOSED ON AND OFF. 1L O2 BY NC REMAINS IN PLACE. HEAD OF BED ELEVATED TO 46 DEGREES. NO ADDITIONAL REQUESTS OR COMPLAINTS. CALL LIGHT WITHIN REACH. BED RAILS UP.
--- NOTE | 2020-04-26 15:27 | NUR ---
PT LAYING IN BED SLEEPING WITH EYES CLOSES. NO SIGNS OF COMPLICATIONS. HEAD OF BED ELEVATED TO 41 DEGREES. NO CONCERNS. CALL LIGHT WITHIN REACH.
--- NOTE | 2020-04-26 15:38 | NUR ---
PT HERE FOR BACTEREMIA. PT UP TO CHAIR FOR MEALS WITH MIREYA LIFT THIS SHIFT. PT TOLERATING 60G CARB DIET WITH 2GM SODIUM WITH GOOD APPITITE. LEFT SIDED HEMIPARESIS CONTINUES WITH BASLINE STRENGTH AND NEUROPATHY. PT TOLERATED ROOM AIR THIS SHIFT WHILE AWAKE AND ESPICIALLY WHEN OUT OF BED. WITH SLEEP PT PLACED ON 1L O2 BY [place] WITH O2 SATURATIONS ABOVE 92%. SCHEDULED BLOOD SUGAR CHECKS AND SLIDING SCALE INSLUIN GIVEN. PICC LINE IN PLACE, ALTEPLASE USED THIS SHIFT WITH BLOOD RETURN RESTORED. IV VANOCMYCIN GIVEN. NEW DRESSING PLACED BY DR. CRUZ TO RIGHT FOOT. NEW ORDERS PLACED FOR ONGOING DRESSING CHANGES. PT HAS DENIES PAIN AND NAUSEA SO FAR THIS SHIFT. PT CONTINUES TO HAVE INCONTANCE WITH DEPENDS CHANGED FREQUENTLY. LUISITO AREA, SCROTUM AND GLUTEAL CLEFT REDDENED, BARRIER CREAM APPLIED. PT VOIDING QUANTITY SUFFICIENT. PT USES CALL LIGHT APPROPRIATLY.
--- NOTE | 2020-04-26 15:45 | NUR ---
THIS RN TO ROOM TO CHECK ON PT. PT RESTING IN BED WITH EYES CLOSED, RESPIRATIONS EVEN AND UNLABORED. HEAD OF BED ELEVATED TO 40 DEGREES. BED RAILS UP. CALL LIGHT WITHIN REACH. PT ALLOWED TO REST.
--- NOTE | 2020-04-26 18:19 | NUR ---
THIS RN TO ROOM TO CHECK ON PT. PT FINISHED WITH DINNER AND STATES "IT WAS REALLY GOOD." PT REQUESTS ASSITANCE BACK TO BED. 2 PERSON ASSIST WITH MIREYA LIFT BACK TO BED. DEPENDS DRY AT THIS TIME. PT POSITIONED FOR COMFORT. DECLINES REPOSITIONING TO RIGHT OR LEFT SIDE STATING "I ONLY WANT TO BE ON MY BACK." EDUCATION DONE WITH PT, PT CONTINUES TO DECLINE OTHER POSITIONS. LEFT SIDE AND ARM SUPPORTED WITH PILLOW. PT DENIES ADDITIONAL REQUESTS OR COMPLAINTS. CALL LIGHT HOWIEHTIN REACH. BED RAILS UP.
--- NOTE | 2020-04-26 19:15 | NUR ---
PT LYING IN BED, EYES CLOSED. RR WNL WITH UNLABORED BREATHING. SHIFT REPORT RECIEVED BY RN.
--- NOTE | 2020-04-26 20:53 | NUR ---
PT LYING IN BED. DENIES SOB, SCHEDULED MEDS GIVEN. VS STABLE. I AND O'S DONE. ASSESSMENT COMPLETE. LUNG SOUNDS CLEAR. 1L O2 NC. +1 PITTING EDEMA R FOOT. DRESSING INTACT, NO DRAINAGE NOTED. CALL LIGHT IN REACH.
--- NOTE | 2020-04-26 20:58 | NUR ---
REPOSITIONED PT IN BED. REPLACED ATTENDS, X1 INCONT. NO FURTHER NEEDS.
--- NOTE | 2020-04-26 23:00 | NUR ---
PT LYING IN BED. 1L O2 NC INTACT. DENIES SOB. WATCHING TV. NO NEEDS AT THIS TIME.
--- NOTE | 2020-04-27 00:38 | NUR ---
PT LYING IN BED. REPLACED ATTENDS. INCONT X2. PT DENIES PAIN. REPOSITIONED PT IN BED. LYING ON THE LEFT SIDE. NO CHANGES ON R FOOT DRESSING. CDI. CALL LIGHT IN REACH.
--- NOTE | 2020-04-27 03:12 | NUR ---
PT LYING IN BED. EYES CLOSED. RR WNL WITH UNLABORED BREATHING. CALL LIGHT IN REACH.
--- NOTE | 2020-04-27 03:49 | NUR ---
PT LYING IN BED. REPOSITIONED PT IN BED TO THE RIGHT SIDE. RIGHT FOOT DRESSING CDI. ALLEYVN INTACT ON LEFT SIDE OF FOOT. NO CHANGES NOTED. ASSESSMENT COMPLETE.
--- NOTE | 2020-04-27 05:51 | NUR ---
PT LYING IN BED. C/O PAIN 6/10 ON RIGHT FOOT AND HEAD. O2 SAT 86% RA. TITRATED O2 TO 1L NC. 90% O2SAT. REPOSITIONED PT IN BED. REPLACED ATTENDS. INCONTX1. DRESSING CDI ON RIGHT FOOT. NO CHANGES NOTED. GLUCOSE 184. CALL LIGHT IN REACH.
--- NOTE | 2020-04-27 06:32 | NUR ---
PRN PAIN MEDS GIVEN PER REQUEST.
--- NOTE | 2020-04-27 07:45 | NUR ---
In for glucose check. Breakfast ordered, patient refused am care and would like to wait til after breakfast to have his brief checked/changed. Call light in reach
--- NOTE | 2020-04-27 08:15 | NUR ---
IN TO COMPLETE MORNING ASSESSMENT. MORNING MEDICATIONS GIVEN. PT INCONTINENT OF URINE, BRIEFS CHANGED, LUISITO CARE DONE AND BARRIER CREAM APPLIED TO ENTIRE LUISITO-AREA D/T REDNESS. PT REPOSITIONED TO LEFT SIDE. AMAN PICC LINE FLUSHING WELL, DRESSING INTACT. ALLEVYN TO RIGHT KNEE AND LEFT FOOT BOTH REMAIN INTACT. LUNG SOUNDS CLEAR, DIMINISHED IN BASES. VSS. SATING 97 ON ROOM AIR, PT REPORTEDLY WEARS 1 L O2 NC AT NIGHT TIME. DENIES SOB, N/V. PT DOES HAVE HEADACHE, RATES 5/10. TYLENOL WAS GIVEN PRIOR TO SHIFT CHANGE. CALL LIGHT IN REACH. PT WOULD LIKE TO REST, REPORTS HE DID NOT SLEEP WELL LAST NIGHT.
--- NOTE | 2020-04-27 08:20 | NUR ---
BG 156, 4 UNITS OF SCHEDULED AND 1 UNIT SS HUMALOG GIVEN.
--- NOTE | 2020-04-27 12:00 | NUR ---
PT BRIEFS SOILED. INCONTINENT OF URINE AND STOOL, LUISITO AREA CLEANED AND BRIEFS CHANGED. BARRIER CREAM APPLIED TO LUISITO AREA. PT MOVED TO CHAIR FOR LUNCH USING MIREYA LIFT. TOLERATED POORLY, DID NOT WANT TO GET UP TO CHAIR BUT WAS WILLING TO AFTER EDUCATED THAT IT WILL HELP IMPROVE LUNG FUNCTION AND PREVENT PNEUMONIA. NORCO GIVEN FOR 7/10 GENERALIZED PAIN. CALL LIGHT IN REACH. LUNCH SET UP FOR PT.
--- NOTE | 2020-04-27 13:55 | NUR ---
LINENS CHANGED. PT MOVED BACK TO BED FROM CHAIR USING MIREYA LIFT. 2 PERSON ASSIST. PT BRIEFS SOILED, INCONTINENT OF STOOL AND URINE. LUISITO CARE DONE AND BARRIER CREAM APPLIED, NEW ATTENDS ON. PT REPOSITIONED TO RIGHT SIDE. PICC LINE SALINE FLUSHED. PATENT AND FLUSHING WELL. CALL LIGHT IN REACH.
--- NOTE | 2020-04-27 15:00 | NUR ---
WAS IN TO GIVE PT AFTERNOON GABAPENTIN. PT DENIES PAIN OR NAUSEA. WATCHING A TV PROGRAM AND IS WITHOUT COMPLAINT. CALL LIGHT IN REACH.
--- NOTE | 2020-04-27 16:45 | NUR ---
PT INCONTINENT OF URINE/STOOL. BRIEFS CHANGED. LUISITO CARE DONE. BARRIER CREAM APPLIED. INORGANIC CHEMISTRY PROFESSOR NOTES SKIN IN GROIN AREA APPEARS TO BE IMPROVING.
--- NOTE | 2020-04-27 17:30 | NUR ---
BG 134, 4 UNITS OF SCHEDULED HUMALOG GIVEN. NO SS INSULIN REQUIRED. MEDICATIONS GIVEN W/ DINNER. PT REPOSITIONED TO RIGHT SIDE. SITTING UP IN BED EATING DINNER. IV VANCO INFUSING THROUGH AMAN PICC LINE. PT IS WITHOUT COMPLAINT. CALL LIGHT IN REACH.
--- NOTE | 2020-04-27 17:37 | NUR ---
PATIENT SITTING UP IN BED, VITALS AND I&OS CHARTED. FRESH ICE WATER GIVEN, CALL LIGHT IS WITHIN REACH, NO FURTHER NEEDS AT THIS TIME
--- NOTE | 2020-04-27 19:43 | NUR ---
REPORT RECEIVED FROM THEODORE ZARATE. PT LAYING IN BED SLEEPING AT THIS TIME AND WAS LEFT UNDISTURBED, WILL CONTINUE PLAN OF CARE.
--- NOTE | 2020-04-27 21:35 | NUR ---
THIS RN IN TO ASSESS PT. PT LAYING IN BED WATCHING TV AND IS ALERT AND ORIENTED X3. PT REPORTS NO PAIN WHEN ASKED AN NO SOB. PT GIVEN ORDERED MEDICATIONS AND 1 UNIT OF INSULIN PER SLIDING SCALE. PT ALSO REPOSITIONED ON BED WITH THE HELP OF ELLIOT HOLT. ASSESSMENT COMPLETE, VITALS STABLE. WOUND DRESSINGS ON FEET ASSESSED AND ARE C/D/I AND SHOW NO SIGNS OF BLEEDING OR EXCESS DRAINAGE. ALLEVYN ON R WATSON/KNEE IS C/D/I WELL. PULSES PRESENT ON FEET, CAP REFILL UNDER 3 SECONDS ON FEET. PT PICC LINE RETURNS BLOOD AND FLUSHES EASILY AND IS NOW SALINE LOCKED. IV IN R HAND PATENT WELL. PT REPORTS NO FURTHER NEEDS WHEN ASKED. CALL LIGHT IN REACH, BED IN LOWEST POSITION, WILL CONTINUE PLAN OF CARE.
--- NOTE | 2020-04-27 22:47 | NUR ---
pt AWAKE RESTING IN BED. INCONTINENCE OF LARGE VOID, ATTENDS, CHUX, GOWN CHANGED. SMALL SMEAR LOOSE BM NOTED. BARRIER CREAM APPLIED TO REDDENED SCROTUM, PENILE EDEMA NOTED. pt REFUSES TO BE REPOSITIONED AT THIS TIME. "5 HOURS IS ENOUGH, I WILL LET YOU TURN ME IN THE MORNING". EDUCATION PROVIDED, pt RAISES VOICE IN REFUSAL. ELLIOT HOLT IN ROOM ASSISTING WITH CHANGING pt AND REPOSITIONING HIGHER IN BED. PERSONAL SUPPLIES IN REACH. NO ADDITIONAL REQUESTS. LIGHTS OFF IN ROOM.
--- NOTE | 2020-04-28 01:14 | NUR ---
THIS RN IN TO REPOSITION PT. PT SLEEPING IN BED BUT AWOKE WHEN CALLED. PT STATES HE HAD BACKPAIN AND WAS WILLING TO TURN TO HIS SIDE. PT DENIES THE NEED FOR PAIN MEDICATION WHEN ASKED ABOUT HIS BACK ERIC. PT HAD AN EPISODE OF INCONTINENCE AND HAD BOTH A SMALL BM AND VOIDED. ATTENDS CHANGED, PERICARE DONE, BARRIER CREAM PLACED. PT THEN REPOSITIONED UP ON BED AND TURNED TO LEFT SIDE WITH PILLOWS SUPPORTING HIS BACK AND UNDERNEATH HIM. PT ASKED FOR THEM TO BE TAKEN OFF, PT STATED HE WANTED TO LAY ON HIS BACK THE WAY HE WAS. PT REFUSED TO HAVE PILLOWS LEFT UNDERNEATH, PT NOW BACK TO A BACK LAYING POSITION AND WATCHING TV. PT PROVIDED WITH JELLO PER HIS REQUEST. PT REPORTS NO FURTHER NEEDS AT THIS TIME, WILL CONTINUE PLAN OF CARE. CALL LIGHT WITHIN REACH, BED IN LOWEST POSITION.
--- NOTE | 2020-04-28 04:49 | NUR ---
THIS RN IN TO ASSESS PT. PT STATED HE WAS HAVING A BM AND WANTED MYSELF AND ELLIOT CARNEY TO COME BACK LATER. WHEN OFFERED A BEDPAN THE PT REFUSED. PT USED HIS CALL LIGHT A FEW MINUTES LATER AND HAD HAD A BM AND VOIDED. PERICARE WAS DONE, ATTENDS WHERE CHANGED, AND BARRIER CREAM WAS PLACED ON PT. ASSESSMENT COMPLETE, VS STABLE, WOUND DRESSINGS ON BOTH FEET ARE C/D/I AND SHOW NO NEW SIGNS OF DRAINAGE. ALLEVYN ON R WATSON IS C/D/I. IV IS PATENT, PICC LINE FLUSHED VIGOROUSLY, PULLS BACK BLOOD, AND IS SALINE LOCKED. PT REPORTS NO FURTHER NEEDS WHEN ASKED AND WENT BACK TO WATCHING TV. CALL LIGHT IN REACH, BED IN LOWEST POSITION, WILL CONTINUE PLAN OF CARE.
--- NOTE | 2020-04-28 06:16 | NUR ---
PT SLEPT THROUGH PART OF NIGHT. PICC LINE FLUSHING AND RETURNING BLOOD. PT HAD 3 EPISODES OF INCONTINENCE. PT ALERT AND ORIENTED AND USES CALL LIGHT. MIREYA LIFT, MRSA PRECAUTIONS. DRESSINGS C/D/I AND SHOW NO SIGNS OF DRAINAGE. PT REPORTED BACKPAIN BUT REFUSED PAIN MEDICATION. PT REPOSITIONED THROUGHOUT NIGHT BUT REFUSES TO HAVE PILLOWS PLACED UNDERNEATH HIM. CULTURES STILL PENDING.
--- NOTE | 2020-04-28 07:15 | NUR ---
RECIEVED REPORT. PT LAYING IN BED. HEAD ELEVATED. EYES CLOSED. CALL LIGHT WITHIN REACH.
--- NOTE | 2020-04-28 07:16 | NUR ---
PRN NORCO GIVEN FOR 6/10 PAIN (SEE EMAR). NO FURTHER NEEDS, CALL LIGHT IN REACH. PRIMARY RN DEMETRIUS AWARE.
--- NOTE | 2020-04-28 07:20 | NUR ---
Notes from 04/26 and 04/27 faxed to [facility] for update.
--- NOTE | 2020-04-28 07:53 | NUR ---
REPORT RECIEVED. PT IN BED, ENCOURAGED PT TO GET OOB FOR BREAKFAST. PT REFUSED STATING, "I'LL GET UP FOR YOU AT LUNCH TIME." TRYED TO OFFER REPOSITIONING INSTEAD AND PT REFUSED ATATING," I'VE BEEN DOING THIS FOR YEARS AT THE OTHER PLACE AND HAVEN'T HAD A PROBLEM SO FAR, I'M NOT DOING IT NOW. MY BACK IS BAD AND I DON'T WANT TO REPOSITION.". EDUCATED ON RISK OF SKIN BNREAKDOWN. PT STILL REFUSED AND SAID HE UNDERSTANDS THE RISK. REPORTS PAIN IN RIGHT FOOT. PRN PAIN MEDS ALREADY GIVEN THIS MORNING. WILL CONT TO MONITOR. CALL LIGHT IN REACH. DENIES FURTHER NEEDS.
--- NOTE | 2020-04-28 08:25 | NUR ---
Pt plans return to [facility] where he resides. He requires extensive care and is unable to return home at this time.
--- NOTE | 2020-04-28 09:44 | NUR ---
ASSESSMENT AND MED PASS COMPLETED. PT LYING IN BED, STILL REFUSING TO REPOSITIONS. CALL LIGHT IN REACH.
--- NOTE | 2020-04-28 10:25 | NUR ---
PT LAYING IN BED. ASSISTED CAMP DIRECTOR TO CHANGE DEPENDS, INCONTINENT TO URINE AND SMALL BOWEL MOVEMENT. SCOTUM RED AND SWOLLEN. COCCYX HAD NO REDNESS OR SIGNS OF BREAKDOWN. BARRIER CREAM APPLIED TO AREA. PT REFUSED TO GET UP IN CHAIR. REPOSITIONED PT WITH HEAD ELEVATED. CALL LIGHT WITH IN REACH.
--- NOTE | 2020-04-28 10:57 | NUR ---
PT REPORTS PAIN IN LRE. STATES PAIN IS 7/10. ADMINISTERED PRN PAIN MEDICATION. REPORTS STABBING AND SHARP IN HIS FOOT, ANKLE, AND LEG. CALL LIGHT WITHIN REACH.
[2020-04-28] MEDS ORDERED: VANCOMYCIN1.5 GM/15 IV (11:50)
[2020-04-28] MEDS ORDERED: HEPARIN 5010 UNIT/1 IV (11:51)
[2020-04-28] MEDS ORDERED: POLYETHYLENE GLY1 GM PO (11:55)
--- NOTE | 2020-04-28 12:00 | NUR ---
PT REFUSING TO GET TO CHAIR FOR LUNCH. SAT PT UP IN BED. BLOOD SUGAR 121. 4 UNITS INSULIN GIVEN PER ORDER.
--- NOTE | 2020-04-28 12:05 | NUR ---
Orders, medlist, dc summary, PASRR, faxed to [facility].
--- NOTE | 2020-04-28 12:20 | NUR ---
Confirmed with Rn pt will be ready for transport at 1300. Called [facility] and scheduled transport at or near 1 pm. Updated Mayra at T, of transport time.
--- NOTE | 2020-04-28 13:16 | NUR ---
REPORT CALLED TO CEE. THAI ZARATE.
--- NOTE | 2020-04-28 13:20 | NUR ---
PT IS TO BE DC'D LATER TODAY. PT LAYING IN BED, HANGING ON BAR, WATCHING TV. PT SAID HE HAS IMPROVED, THANKED ME FOR STOPPING BY. GAVE BLESSING,
--- NOTE | 2020-04-28 13:21 | NUR ---
[facility] TO TAKE PT HOME. REPORT GIVEN. NO QUESTIONS.
--- NOTE | 2020-04-28 13:25 | NUR ---
TRIED CALLING WIFES CELL PHONE AND HOME PHONE TWO TIMES TO INFORM HER OF PT DISCHARGE. NO ANSWER ON EITHER PHONE AND NO VOICEMAIL AVAILIBLE.
== END 2020-04-28 13:20 | DRG 854 ==
LOC: MS 15:43
PROVIDERS: ADMIT Internal Medicine; ATTEND Internal Medicine
PROC: 0JBQ0ZZ Excision of Right Foot Subcutaneous Tissue and Fascia, Open Approach (ICD-10-PCS; principal; 2020-04-24)
PROC: 02HV33Z Insertion of Infusion Device into Superior Vena Cava, Percutaneous Approach (ICD-10-PCS; 2020-04-25)
DX: A41.89 Other specified sepsis (principal); Z16.11 Resistance to penicillins; L97.414 Non-pressure chronic ulcer of right heel and midfoot with necrosis of bone; I50.22 Chronic systolic (congestive) heart failure; I69.354 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cting left non-dominant side; E11.621 Type 2 diabetes mellitus with foot ulcer; L08.9 Local infection of the skin and subcutaneous tissue, unspecified; E11.51 Type 2 diabetes mellitus with diabetic peripheral angiopathy without gangrene; E11.42 Type 2 diabetes mellitus with diabetic polyneuropathy; M54.9 Dorsalgia, unspecified; G89.4 Chronic pain syndrome; I25.10 Atherosclerotic heart disease of native coronary artery without angina pectoris; I35.0 Nonrheumatic aortic (valve) stenosis; E87.5 Hyperkalemia; D64.9 Anemia, unspecified; K59.09 Other constipation; E11.65 Type 2 diabetes mellitus with hyperglycemia; G47.33 Obstructive sleep apnea (adult) (pediatric); Z87.891 Personal history of nicotine dependence; Z87.820 Personal history of traumatic brain injury; Z79.899 Other long term (current) drug therapy; Z79.02 Long term (current) use of antithrombotics/antiplatelets; Z79.82 Long term (current) use of aspirin; Z79.4 Long term (current) use of insulin; Z79.891 Long term (current) use of opiate analgesic
CPT/HCPCS: 36415; 36569; 71045; 80048; 80053; 80202; 82565; 83036; 83735; 84520; 85007; 85025; 85032; 87040; 93306; C1751; J1650; J1815; J2405; J2997; J3370; J3475; J7030; J7060

== ENCOUNTER 2020-06-01 08:48 | Inpatient (IN) | payer OTHER ==
[~2020-06-01] VITALS: Ht 177.8 cm; Wt 114.0 kg
[~2020-06-01 08:48] MED LIST changes: +VANCOMYCIN1.5 GM/15 IV
--- OUTSIDE RECORDS SUMMARY | 2020-06-01 08:50 | XMS ---
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 \viDA [facility] [place] PHONE: [phone] ALON [facility] 01/08/2019-Current PHONE: [phone] Leonard Lopez DO [facility] Current PHONE: [phone] [place] PERRY [facility] \F\ [facility]: FRANCA 03/27/2019-[facility] PHONE: [phone] Jalen has no Care Guidelines for this patient. Care History Medical/Surgical 03/27/2019 [facility] - PATIENT HAS PCP-DR ROSLYN JONES AT [facility] HIS PCP- - LAST VISIT [...] PCP. Jovany VISIT COUNT (12 MO.) 8 [facility] TOTAL 8 NOTE: Visits indicate total known visits. ED/UCC VISIT TRACKING (12 MO.) 06/01/2020 08:48 [facility] [place] TYPE: Emergency COMPLAINT: - NAUSEA 04/23/2020 13:12 [facility] [place] TYPE: Emergency COMPLAINT: - LETHARGIC, POSSIBLE INFECTION 04/22/2020 16:12 [facility] [place] TYPE: Emergency COMPLAINT: - R FOOT WOUND DIAGNOSES: - jail (current) use of oral hypoglycemic drugs - Iron deficiency anemia, unspecified - Heart failure, unspecified - Type 2 diabetes mellitus with foot ulcer - Hyperlipidemia, unspecified - Hypertensive heart disease with heart failure - Gastro-esophageal reflux disease without esophagitis - Type 2 diabetes mellitus with diabetic neuropathy, unspecified - jail (current) use of aspirin - Old myocardial infarction - 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 - Type 2 diabetes mellitus with foot ulcer - Other intermediate (current) drug therapy 02/24/2020 09:19 [facility] [place] TYPE: Emergency COMPLAINT: - ABDOMINAL 02/11/2020 14:06 [facility] [place] TYPE: Emergency COMPLAINT: - POSSIBLE GI 01/24/2020 11:46 [facility] [place] TYPE: Emergency COMPLAINT: - FALL 08/23/2019 08:28 [facility] [place] TYPE: Emergency COMPLAINT: - MULTIPLE COMPLAINTS DIAGNOSES: - jail (current) use of insulin - Anemia, unspecified - Acute pancreatitis without necrosis or infection, unspecified - Type 2 diabetes mellitus with diabetic polyneuropathy - Exposure to other specified factors, initial encounter - Constipation, unspecified - jail (current) use of aspirin - Unspecified abdominal pain - Unspecified fracture of T7-T8 vertebra, initial encounter for closed fracture - salvage determiner (current) use of antithrombotics/antiplatelets - Other intermediate (current) drug therapy 08/08/2019 14:55 [facility] [place] TYPE: Emergency COMPLAINT: - SEPSIS INPATIENT VISIT TRACKING (12 MO.) 04/24/2020 15:56 [facility] [place] TYPE: Medical Surgical COMPLAINT: - COCCI DIAGNOSES: - Type 2 diabetes mellitus with foot ulcer - 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rosis of bone - Resistance to penicillins - 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cting left non-dominant side - Other constipation - Personal history of nicotine dependence - Chronic pain syndrome - Other intermediate (current) drug therapy - Anemia, unspecified - Sepsis, unspecified organism - Personal history of traumatic brain injury - 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 - Type 2 diabetes mellitus with diabetic peripheral angiopathy without gangrene - Other specified sepsis - Type 2 diabetes mellitus with diabetic polyneuropathy - Hyperkalemia - salvage determiner (current) use of insulin - jail (current) use of aspirin - Local infection of the skin and subcutaneous tissue, unspecified - salvage determiner (current) use of antithrombotics/antiplatelets - Chronic systolic (congestive) heart failure - Dorsalgia, unspecified - Obstructive sleep apnea (adult) (pediatric) - Type 2 diabetes mellitus with hyperglycemia - Nonrheumatic aortic (valve) stenosis - jail (current) use of opiate analgesic 04/23/2020 13:13 [facility] [place] TYPE: Observation COMPLAINT: - PNEUMONIA, DIARRHEA DIAGNOSES: - Iron deficiency anemia, unspecified - Other malaise - jail (current) use of oral hypoglycemic drugs - Elevated white blood cell count, unspecified - Type 2 diabetes mellitus with diabetic peripheral angiopathy without gangrene - Other nonspecific abnormal finding of lung field - jail (current) use of aspirin - Nausea - Hypertensive heart disease with heart failure - Coronary angioplasty status - Diarrhea, unspecified - jail (current) use of antithrombotics/antiplatelets - Hyperlipidemia, unspecified - 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 - Hemiplegia and hemiparesis following unspecified cerebrovascular disease affecting left non-dominant side - Old myocardial infarction - Type 2 diabetes mellitus with diabetic polyneuropathy - Other specified diseases of anus and rectum - 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 - Type 2 diabetes mellitus with foot ulcer - Weakness - Other chronic pain - Gastro-esophageal reflux disease without esophagitis - Hyperkalemia - Dorsalgia, unspecified - Chronic systolic (congestive) heart failure 02/24/2020 13:44 [facility] [place] TYPE: Critical Care COMPLAINT: - SEPSIS, ELEVATED TROPONIN, FECAL IMPACTION DIAGNOSES: - Type 2 diabetes mellitus with diabetic peripheral angiopathy without gangrene - Benign prostatic hyperplasia without lower urinary tract symptoms - Acute kidney failure, unspecified - Morbid (severe) obesity due to excess calories - Chronic pain syndrome - Iron deficiency anemia, unspecified - jail (current) use of opiate analgesic - Other specified abnormal findings of blood chemistry - 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cting left non-dominant side - Elevation of levels of lactic acid dehydrogenase [LDH] - Other specified noninfective gastroenteritis and colitis - Obstructive sleep apnea (adult) (pediatric) - Acute and chronic respiratory failure with hypercapnia - Dehydration - salvage determiner (current) use of antithrombotics/antiplatelets - Hyperlipidemia, unspecified - Constipation, unspecified - Acute kidney failure, unspecified - salvage determiner (current) use of opiate analgesic - Other [...] ankle and joints of right foot - jail (current) use of antithrombotics/antiplatelets - jail (current) use of aspirin - Contact with [...] exposure to other viral communicable diseases - salvage determiner (current) use of aspirin - Gastro-esophageal reflux [...] - Iron deficiency anemia, unspecified - Other terminal manager (current) drug therapy - Atelectasis - Other terminal manager (current) drug therapy 02/11/2020 18:34 [facility] [place] TYPE: Medical [...] - Chronic diastolic (congestive) heart failure - salvage determiner (current) use of antithrombotics/antiplatelets - Hypertensive heart disease with heart failure - Obstructive sleep apnea (adult) (pediatric) - Fecal impaction - Benign prostatic hyperplasia without lower urinary tract symptoms - jail (current) use of insulin - Hyperlipidemia, unspecified - jail (current) use of aspirin - Type 2 diabetes mellitus with diabetic peripheral angiopathy without gangrene - Chronic diastolic (congestive) heart failure - salvage determiner (current) use of aspirin - Type 2 diabetes mellitus with foot ulcer - Adverse effect of unspecified narcotics, initial encounter - Type 2 diabetes mellitus with diabetic peripheral angiopathy without gangrene - Contact with and (suspected) exposure to other viral communicable diseases - 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cting left non-dominant side - 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 - Other intermediate (current) drug therapy - Other terminal manager (current) drug therapy - Benign prostatic hyperplasia without lower urinary tract symptoms - jail (current) use of antithrombotics/antiplatelets - Patient's noncompliance with other medical treatment and regimen - Chronic pain syndrome - Contact with and (suspected) exposure to other viral communicable diseases - Dehydration - Type 2 diabetes mellitus with diabetic polyneuropathy - Fecal impaction - jail (current) use of insulin - Dehydration - Type 2 diabetes mellitus with foot ulcer - Type 2 diabetes mellitus with diabetic polyneuropathy - Patient's noncompliance with other medical treatment and regimen - Vomiting, unspecified - Chronic pain syndrome - 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 01/24/2020 18:05 [facility] [place] TYPE: Medical Surgical COMPLAINT: - ACUTE HYPOXIC RESPIRATORY FAILURE DIAGNOSES: - Chronic systolic (congestive) heart failure - Carbuncle of back [any part, except buttock] - Iron deficiency anemia, unspecified - Hyperlipidemia, unspecified - Gastro-esophageal reflux disease without esophagitis - Dorsalgia, unspecified - salvage determiner (current) use of insulin - Personal history of traumatic brain injury - Unspecified open wound, right lower leg, initial encounter - 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cting left non-dominant side - Acute respiratory failure with hypoxia - Other terminal manager (current) drug therapy - Chronic pain syndrome - 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 - jail (current) use of opiate analgesic - Type 2 diabetes mellitus with diabetic peripheral angiopathy without gangrene - Contact with and (suspected) exposure to other viral communicable diseases - Metabolic encephalopathy - Obstructive sleep apnea (adult) (pediatric) - Type 2 diabetes mellitus with diabetic polyneuropathy - salvage determiner (current) use of non-steroidal anti-inflammatories (NSAID) - Benign prostatic hyperplasia without lower urinary tract symptoms - Hyperkalemia - Pneumonia due to other Gram-negative bacteria - jail (current) use of aspirin - jail (current) use of antithrombotics/antiplatelets 08/23/2019 15:58 [facility] TYPE: Surgical Services DIAGNOSES: - Obesity, [...] Vomiting, unspecified - Fever, unspecified - Hypoxemia [email or web address]
[2020-06-01] MEDS ORDERED: PROBIOTIC1 EAC5 PO (14:45)
[2020-06-01] MEDS ORDERED: LINEZOLID600 MG PO (14:47)
[2020-06-01] MEDS ORDERED: VOLTAREN100 GM TOP (14:51)
--- NOTE | 2020-06-01 15:22 | NUR ---
PATIENT ARRIVES FROM ED ON CART WITH ELLIOT MARTINEZ. ASSIST TO BED FROM CART. REPOSITIONED. ASSESSMENT COMPLETED, VITALS OBTAINED. IV ANTIBIOTIC REMAINS INFUSING ON ADMISSION. CALL LIGHT IN REACH, BED RAILS UP X2.
--- NOTE | 2020-06-01 16:10 | NUR ---
REPORT TO Lien HERNANDEZ RN.
--- NOTE | 2020-06-01 16:30 | NUR ---
arrived to CCU VIA BED FROM [facility]. BIPAP 25/8, FIO2 36%,RR- 18. PT WILL OPEN EYES BRIEFLY, WILL FOLLOW FEW COMMANDS. IV SITE STARTED TO RFA. IN ROOM.
--- NOTE | 2020-06-01 16:40 | NUR ---
MONSIVAIS CATH PLACED W/O DIFFICULTY WITH RETURN OF JORDIN URINE. FLEETS ENEMA GIVEN, WAS NOT ABLE TO RETAIN EMEMA. BED LINEN CHANGED, CHUX AND ATTEND PLACED UNDER PATIENT. REMAINS ON BIPAP.
--- NOTE | 2020-06-01 18:00 | NUR ---
AWAKE, BIPAP OFF. O2 AT 2 LITER APPLIED. IS FOLLOWING ALL COMANDS. DUE TO STROKE PATIENT HAD SEVERAL YEARS AGO, LEFT SIDE WITH MINIMAL TO NO MOVEMENT.
--- NOTE | 2020-06-01 18:30 | NUR ---
SITTING UP IN BED TO EAT.
--- NOTE | 2020-06-01 19:02 | NUR ---
REMAINS ON O2 AT 2 L NC AT THIS TIME. SITTNG UP IN BED WATHCING TV. DR. LOPEZ UPDATED VIA PHONE REGARDING PATINET CONDITION. NO FUTHER ORDERS. REPORT TO NEXT SHIFT. CONTINUES TO SIP ON MAG CITRATE. TOOL MIRLAX EARLIER.
--- NOTE | 2020-06-01 19:30 | NUR ---
RECEIVED REPORT FROM [facility]. pt RESTING IN BED. ALERT AND ORIENTED. NO REQUESTS AT THIS TIME. WHITEBOARD UPDATED.
--- NOTE | 2020-06-01 20:40 | NUR ---
O2 SATS CYCLING BETWEEN 79% TO 94%. pt SLEEPING. NOT ALERT WHEN WOKEN UP. LARGE LIQUID BM NOTED. NEW LINENS AND DEPENDS. MONSIVAIS AND LUISITO CARE DONE. NOTED EXCORIATION TO LUISITO ANAL. VERY PAINFUL FOR pt. BARRIER CREAM APPLIED. MONSIVAIS DRAINING YELLOW URINE. SKIN DRY AND FLAKY, SEVERAL WOUNDS NOTED COVERED WITH ALLEVYNS. RIGHT FOOT HAS EXTENSIVE DRESSING. FEET ARE PALE AND COOL, PULSES FAINT. pt PLACED ON BiPAP, TOLERATING. LUNG SOUNDS DIM IN THE BASES.
--- NOTE | 2020-06-01 22:20 | NUR ---
IN TO GIVE MEDICATION. pt RESTING ON BiPAP. LOOSE STOOL NOTED. PERICARE DONE. pt LESS PAINFUL THAN BEFORE. FRESH DEPENDS IN PLACE. pt TURNED. pt REQUESTED TO REMAIN OFF BiPAP AT THIS TIME. O2 SATS MID 90'S ON 2L O2 VIA NC. CALL LIGHT WITHIN REACH.
--- NOTE | 2020-06-02 00:41 | NUR ---
IN TO DO ASSESSMENT. pt RESTING IN BED WITH EYES CLOSED. pt WOKE TO VOICE. REQUESTED TO BE LEFT ALONE TO SLEEP. NO BM NOTED. MONSIVAIS DRAINING YELLOW URINE. pt CONTINUES TO REFUSE BiPAP AT THIS TIME. ON 3L O2 VIA NC.
--- NOTE | 2020-06-02 02:55 | NUR ---
pt AWAKE IN BED. REQUESTED FOOD. PROVIDED SOMETHING TO EAT AND DRINK. NO FURTHER REQUESTS AT THIS TIME. SITTING UP IN BED WATCHING TV. CALL LIGHT WITHIN REACH.
--- NOTE | 2020-06-02 03:37 | NUR ---
pt HAD LOOSE BM. PERICARE DONE. pt REQUESTED MORE FOOD. PROVIDED. CALL LIGHT WITHIN REACH. REPOSITIONED
--- NOTE | 2020-06-02 04:26 | NUR ---
ASSESSMENT DONE. pt RESTING IN BED DRINKING DIET SODA. LUNG BASES LESS DIM, COARSE. NO REQUESTS AT THIS TIME. CALL LIGHT WITHIN REACH.
--- NOTE | 2020-06-02 05:16 | NUR ---
pt REPORTED HE WAS INCONT. OF STOOL. SMEAR NOTED. BARRIER CREAM APPLED. NO FURTHER REQUESTS AT THIS TIME. CALL LIGHT WITHIN REACH.
--- NOTE | 2020-06-02 05:32 | NUR ---
pt O2 SATS LOW. PLACED ON BiPAP. IV ANTIBIOTIC INFUSING PER ORDERS. pt ALERT AND AWAKE. ORIENTED.
--- NOTE | 2020-06-02 05:41 | NUR ---
pt NOT TOLERATING BiPAP, NOW ON 3L O2 VIA NC SAT 94%. EDUCATION DONE.
--- NOTE | 2020-06-02 06:10 | NUR ---
ROM DONE WITH pt INSTRUCTION. pt REPORTS FEELING "MUCH BETTER" O2 SAT LOW 90'S ON 3L.
--- NOTE | 2020-06-02 06:29 | NUR ---
pt REPORTED INCONT OF STOOL. CHANGED. SMALL AMOUNT OF STOOL. NO FURTHER REQUESTS AT THIS TIME. CALL LIGHT WITHIN REACH.
[2020-06-02] MEDS ORDERED: CYMBALTA30 MG PO (07:28)
--- NOTE | 2020-06-02 07:30 | NUR ---
REPORT RECIEVED. PATIENT IN BED WITH O2 AT [address] MINIMAL AMOUNT OF URINE NOTED IN MONSIVAIS CATH.
[2020-06-02] MEDS ORDERED: TYLENOL325 MG PO (07:34)
--- NOTE | 2020-06-02 10:00 | NUR ---
SITTING UP IN BED TO TAKE BREAKFAST. PO MEDICATIONS GIVEN. NOW ON O2 AT 3 L MARJORIE. NIALL DOOLEY.
--- NOTE | 2020-06-02 10:17 | NUR ---
TALENT ADVISOR and RN moved pt. up in bed for breakfast. no other needs at this time
--- NOTE | 2020-06-02 12:25 | NUR ---
DR. LOPEZ UPDATED ON U/O, NO FUTHER ORDERS AT THIS TIME.
--- NOTE | 2020-06-02 12:28 | NUR ---
SPOKE WITH PATIENT IN ROOM. PATIENT ANSWERS QUIETLY BUT APPROPRIATELY. STATES HE WILL RETURN TO [facility] AT DISCHARGE. STAFF STATES WAS HERE BUT HAS LEFT. TRIED CALLING , PHONE SAYS UNAVAILABLE.
--- NOTE | 2020-06-02 12:30 | NUR ---
REFUSING LUNCH. PULLS OFF BIPAP AT TIMES. IS USING O2 AT 3 L WHEN OFF BIPAP.
--- NOTE | 2020-06-02 12:40 | NUR ---
REPOSITIONED. INCONT OF SMALL AMOUNT OF STOOL. C/O SLIGHT NAUSEA. ZOFRAN 4 MG IV GIVEN.
--- NOTE | 2020-06-02 13:00 | NUR ---
IS WITH INCREASED SOMULANCE, BIPAP APPLIED.
--- NOTE | 2020-06-02 15:06 | NUR ---
SLEEPING ON RIGHT SIDE. BIPAP ON AT 35% FIO2, RR-18, MODE-AVAPS [employer] VOLUME-500. DR. LOPEZ IS AWARE OF U/O THROUGH THE DAY. NO FUTHER ORDERS REGARDING IVF. WHEN PATIENT IS AWAKE, IS IRRITABLE AT TIMES.
--- NOTE | 2020-06-02 17:09 | NUR ---
PT TURNED TO HIS LEFT SIDE AND PILLOWS APPLIED BEHIND HIS RIGHT HIP. SHARAD APPLIED AND NEW DEPENDS GIVEN. FARA ELIAS RN UPDATED.
--- NOTE | 2020-06-02 17:21 | EKG ---
[facility] [address] [place], [place] [address] Signed Normal sinus rhythm Possible Inferior infarct (cited on or before 24-JAN-2020) Abnormal ECG When compared with ECG of 23-APR-2020 14:59, No significant change was found Confirmed by HARMONY LOPEZ DO ([id number]) on 06/02/2020 5:21:23 PM Electronically Signed By: HARMONY LOPEZ DO 06/02/20 172 PATIENT NAME: SAROJ AMEZQUITA Electrocardiogram DATE OF : 49 PHYSICIAN: HARMONY LOPEZ DO REPORT #: [id number] REPORT IS CONFIDENTIAL AND NOT TO BE RELEASED WITHOUT AUTHORIZATION
--- NOTE | 2020-06-02 17:36 | NUR ---
PT BLADDER SCANNED WITH 0 ML. FARA ELIAS RN NOTIFIED.
--- NOTE | 2020-06-02 18:00 | NUR ---
LR 500 ML OVER ONE HOUR HUNG PER DR. LOPEZ ORDERS. U/O REMAINS POOR.
--- NOTE | 2020-06-02 19:55 | NUR ---
SHIFT REPORT RECEIVED FROM ELLIOT CHAUDHARI. PT REQUESTED A SNACK, CB AT THIS TIME. PROTEIN PACK AND APPLESAUCE PROVIDED TO PT.
--- NOTE | 2020-06-02 19:59 | NUR ---
[facility] REQUESTED A LATE DINNER DUE TO LATE MEAL TIMES PER DAY RN REPORT. PATIENT PROVIDED WITH A MEAT/CHEESE BOX. PATIENT DENIES ANY FUTHER NEEDS.
--- NOTE | 2020-06-02 20:30 | NUR ---
ASSESSMENT COMPLETED, PT IS ALERT/ORIENTED. DENIES PAIN. LUNGS CLEAR, DIM IN BASES, 3L O2 VIA NC IN PLACE. HR REGULAR. BOWEL TONES SLIGHTLY HYPOACTIVE. IV SITES INTACT, INFUSING WNL. MONSIVAIS PATENT, CATH CARE PROVIDED. BARRIER CREAM APPLIED TO PERIAREA. VARIOUS ABRAISIONS/BANDAGES TO LOWER LEGS-SEE DOCUMENTATION. PT DENIES NEEDS AT THIS TIME, CALL LIGHT WITHIN REACH.
--- NOTE | 2020-06-02 21:12 | NUR ---
PILLOW REMOVED FROM UNDER LEFT SIDE, PT NOW SUPINE, SITTING UP IN BED.
--- NOTE | 2020-06-02 21:39 | NUR ---
CPAP PLACED ON PT PER REQUEST.
--- NOTE | 2020-06-02 22:11 | NUR ---
CPAP REMOVED PER PT REQUEST. PT REPOSITIONED ONTO LEFT SIDE WITH PILLOW SUPPORT. NO FURTHER REQUESTS AT THIS TIME.
--- NOTE | 2020-06-02 23:40 | NUR ---
ASSESSMENT COMPLETED AND UNCHANGED. PT HAS BEEN UNABLE TO TOLERATE CPAP, REMAINS ON 3L NC. PT INCONTINENT OF LIQUID STOOL, PERICARE, BARRIER CREAM, AND NEW ATTENDS/CHUX PROVIDED. PT REPOSITIONED ONTO RIGHT SIDE WITH PILLOW SUPPORT. DENIES FURTHER REQUESTS, CALL LIGHT WITHIN REACH.
--- NOTE | 2020-06-03 00:15 | NUR ---
PT REPORTS FEELING UNCOMFORTABLE IN BED, REPOSITIONED.
--- NOTE | 2020-06-03 02:00 | NUR ---
PT CALLED, BELIEVED HE HAD BM. ATTENDS CHECKED AND CLEAN AT THIS TIME. PT REPOSITIONED ONTO RIGHT SIDE WITH PILLOW SUPPORT.
--- NOTE | 2020-06-03 04:15 | NUR ---
ASSESSMENT COMPLETED AND UNCHANGED. PT REPOSITIONED TO SUPINE IN BED, LEFT ARM ELEVATED ON PILLOW. PT DENIES NEEDS AT THIS TIME, CALL LIGHT WITHIN REACH.
--- NOTE | 2020-06-03 05:15 | NUR ---
PT HUNGRY, OFFERED HIM AVAILABLE SNACKS AND PROVIDED HIM WITH BEEF BROTH PER REQUEST.
--- NOTE | 2020-06-03 06:15 | NUR ---
PT REPOSITIONED ONTO LEFT SIDE WITH PILLOW SUPPORT. BREAKFAST ORDER RECEIVED AND CALLED TO KITCHEN.
--- NOTE | 2020-06-03 07:30 | NUR ---
REPORT RECIEVED. PATIENT IN BED, OCC MOANING. IV PATENT.
--- NOTE | 2020-06-03 07:45 | NUR ---
SAT PATIENT AT BEDSIDE FOR APPOX 10 MIN. PATIENT DID NOT TOLERATE THIS WELL, YELLING OUT HOW MUCH HE HURTS. BED LINEN CHANGED WHILE SITTING AT BEDSIDE, UPON LAYING BACK TO BED, ATTENDS CHANGED. INC OF SMALL AMOUNT OF LIQUID STOOL.
--- NOTE | 2020-06-03 08:00 | NUR ---
ASSESSMENT DONE. THEN SITTING UP IN BED FOR BREAKFAST.
--- NOTE | 2020-06-03 08:30 | NUR ---
IVF DECREASED TO 65 ML/HR. REMAINS ON 2 L NC. HAS NOT BEEN ON BIPAP THIS SHIFT.
--- NOTE | 2020-06-03 09:00 | NUR ---
TOOK BEAKFAST WELL, AFTER EATING PATIENT C/O INCREASED ABD PAIN. ROUTINE MEDICATIONS GIVEN ORDERED. ONE UNIT OF HUMALOG INSULIN GIVEN FOR BLOOD SUGAR OF 145. [facility] PATENT.
--- NOTE | 2020-06-03 09:17 | NUR ---
v/s and I&Os done. breakfast given, bed changed, pt. had bowel movement in bed. cleaned up. no other needs at this time. call light within reach
--- NOTE | 2020-06-03 10:20 | NUR ---
DR. LOPEZ HERE TO SEE PATIENT. PATIENT WITH MANY QUESTIONS ABOUT TREATMENT, THESE ANSWERED BY DR. LOPEZ.
--- NOTE | 2020-06-03 12:00 | NUR ---
assessment done. c/o general pain and nausea. told patient maybe he shuldn't eat lunch. patient said he wants to eat.
--- NOTE | 2020-06-03 12:10 | NUR ---
ZOFRAN 4 MG IV GIVEN FOR NAUSEA. PATIENT HAS BEEN YELLING OUT "HELP ME, HELP ME.
--- NOTE | 2020-06-03 13:00 | NUR ---
DR. LOPEZ UPDATED ON PATIENT PAIN AND NAUSEA. ORDERS RECIEVED.
--- NOTE | 2020-06-03 13:15 | NUR ---
PHENERGAN 12.5 MG IV GIVEN FOR NAUSEA. PATIENT INCONT OF STOOL, ATTENDS CHANGED. REPOSITIONED..
--- NOTE | 2020-06-03 13:30 | NUR ---
MYLICON 80 MG PO GIVNE FOR GAS PAIN, PATIENT CONTINUES TO YELL OUT "HELP ME, HELP ME!. REPEATS THIS OFTEN, STATES HE IS SICK. PATIENT IS FRUSTRATED.
--- NOTE | 2020-06-03 16:15 | NUR ---
Spoke with Seb and his Jessica. Pt plans on return to [facility]. Per Jessica pt is uncomfortable today, he did not sleep well. He declines to use Bipap as he is clastraphobic. Nurse updated. Spoke with Ian from [facility] and he states there is not a different mask for Bipap.
--- NOTE | 2020-06-03 17:30 | NUR ---
PT ARRIVED TO FLOOR VIA BED. PT IS ALERT AND ORIENTED. AT BEDSIDE. DINNER NOW TO ROOM. PT SAT UP IN BED TO EAT. VITALS TAKEN AND STABLE. VISIBLE FROM NURSING STATION. CALL LIGHT AND PERSONAL ITEMS WITHIN REACH.
--- NOTE | 2020-06-03 19:53 | NUR ---
RECEIVED REPORT FROM DAY SHIFT RN. PATIENT IS RESTING IN BED WATCHING TV. NO NEEDS NOTED. CALL LIGHT IN REACH.
--- NOTE | 2020-06-03 21:38 | NUR ---
V/S AND I&O'S COMPLETED AND RECORDED BY PRIMARY RN BRODERICK. CLEANED PATIENT FROM BOWEL MOVEMENT INCONTINENT. APPLIED BARRIER CREAM ON PERINEAL AREA. MONSIVAIS/LUISITO CARE DONE. PATIENT POSITONED TO FLOATING. CALL LIGHT WITHIN REACH.
--- NOTE | 2020-06-03 22:16 | NUR ---
PATIENTS ATTEND CHANGED. PATIENT HAD LOOSE BM. CREAM APPLIED TO PATIENTS SCROTAL AREA AND BOTTOM. LUISITO CARE COMPLETED. PATIENT REPOSTIIONED IN BED. PATIENTS VITALS TAKEN AND RECORDED. MONSIVAIS EMPTIED. INTAKE AND OUPUT RECORDED. PATIENT DENIES ANY PAIN. PATIENTS EVENING MEDICATIONS GIVEN PER ORDER. PATIENT REMAINS ON 2L VIA NM. NO FURTHER NEEDS NOTED. CALL LIGHT IN REACH.
--- NOTE | 2020-06-03 22:56 | NUR ---
PATIENT IS HOLLERING OUT. WHEN ROOM WAS ENTERED. PATIENT ASKED TO BE REPOSITIONED. PATIENT REPOSITIONED IN BED. NO FURTHER NEEDS NOTED. CALL LIGHT IN REACH.
--- NOTE | 2020-06-04 01:12 | NUR ---
PATIENT IS RESTING IN BED AND HOLLERS OUT OFTEN, NEVER REALLY NEEDED ANYTHING. PATIENT REPOSITIONED IN BED. CALL LIGHT IN REACH.
--- NOTE | 2020-06-04 01:30 | NUR ---
THIS BUSINESS AND SERVICES INSTRUCTOR AND PRIMARY RN BRODERICK CLEANED PATIENT HAD INCONTINENT BOWEL MOVEMENT. BARRIER CREAM APPLIED. PATIENT REPOSITIONED. CALL LIGHT IN REACH. BED ALARM ON FOR SAFETY.
--- NOTE | 2020-06-04 01:40 | NUR ---
PATIENT REPORTS NAUSEA. PRN NAUSEA MEDICATION GIVEN PER ORDER. PATIENT REPOSITIONED IN BED. PATIENT DENIES ANY PAIN. ATTEND CHANGED AND LUISITO CARE COMPLETED. NO FURTHER NEEDS NOTED. CALL LIGHT IN REACH.
--- NOTE | 2020-06-04 03:07 | NUR ---
PATIENT IS RESTING IN BED WITH EYES CLOSED, RR 17. CALL LIGHT IN REACH.
--- NOTE | 2020-06-04 05:48 | NUR ---
PATIENTS VITALS TAKEN AND RECORDED. PATIENTS ATTEND CHANGE. PATIENT HAD LOOSE BM. LUISITO CARE COMPLETED. MONSIVAIS EMPTIED AND MONSIVAIS CARE COMPLETED. INTAKE AND OUPUT RECORDED. PATIENT DENIES ANY PAIN OR NAUSEA. PATIENT REPOSITIONED IN BED. PATIENT DENIES ANY FURTHER NEEDS. CALL LIGHT IN REACH.
--- NOTE | 2020-06-04 05:49 | NUR ---
PATIENT ONLY RESTED DURING THE LATER PART OF THE SHIFT. PATIENT IS ON 2L VIA NC, AND THIS IS CHRONIC FOR HIM. PATIENT HAS MONSIVAIS IN PLACE. PATIENT IS ON A 60G ADA DIET. PATIENT RECEIVED PRN NAUSEA MEDICATION. PATIENT IS BED/WHEELCHAIR BOUND AT BASELINE. PATIENT IS WORKING WITH ST AND PT. PATIENT HAS LEFT SIDED WEAKNESS. PATIENT REFUSED BIPAP. PATIENT HAS A REDDENED LUISITO AREA, CREAM APPLIED PER ORDER. PATIENT IS CONFUSED AT TIMES AND HOLLERS. PATIENT DOES NOT USE CALL LIGHT.
--- NOTE | 2020-06-04 06:09 | NUR ---
THIS DIRECTOR OF INDIVIDUAL GIVING ASSISED RN WITH CLEANING PATIENT AND PUTTING ON FRESH BREIF. PATIENT STATES THAT HE WOKE UP AND DIDN'T KNOW WHERE HE WAS. PATIENT TOLERATED BUT VOCALIZED PAIN WHEN WIPEING AND PUTTING ON RASH CREAM. HIPS FLOATED. PATIENT STATES HE WANTS TO REST AGIN. DENIES ANY FUTHER NEEDS. CALL LIGHT GIVEN.
--- NOTE | 2020-06-04 08:10 | NUR ---
DR. CRUZ HERE, DRESSING TO RIGHT FOOT CHANGED BY DR. CRUZ. ASSESSMENT COMPLETED. DENIES PAIN AT THIS TIME. STATES HE IS FEELING BETTER AND WANTS TO GO HOME.
--- NOTE | 2020-06-04 09:16 | NUR ---
IV LR DECREASED TO 50ML/HOUR PER ORDERS.
--- NOTE | 2020-06-04 10:31 | NUR ---
REPOSITIONED IN BED, LUISITO-CARE COMPLETED AND DESITIN TO LUISITO-AREA APPLIED. MONSIVAIS CATHETER DC'D AT THIS TIME.
--- NOTE | 2020-06-04 10:50 | NUR ---
PATIENT CALLS FOR ASSISTANCE. STATES HE IS TIRED AND WANTS TO SLEEP. OFFERED TO REPOSITION, REFUSES. OFFERED TO SHUT TV OFF OR TURN IT DOWN, REFUSES THAT WELL. INSTRUCTED TO TRY TO CLOSE EYES TO REST, IF HE IS WANTING TO SLEEP. CALL LIGHT IN REACH, BED RAILS UP.
--- NOTE | 2020-06-04 12:30 | NUR ---
Received call from T requesting update. Updated pt will dc in 1-[address] Keller. Will fax notes when Dr. Keller has entered.
--- NOTE | 2020-06-04 12:32 | NUR ---
LYING IN BED, EYES CLOSED AND RESPIRATIONS EVEN AND UNLABORED. EARLIER COMPLAINTS OF "STOMACH HURTING." PRN ZOFRAN GIVEN. DENIES OTHER NEEDS. CALL LIGHT IN REACH, BED RAILS UP X2.
--- NOTE | 2020-06-04 13:38 | NUR ---
STATES HIS STOMACH STILL HURTS WITHOUT IMPROVEMENT. ASSESSMENT COMPLETED. DENIES OTHER NEEDS AT THIS TIME. CALL LIGHT IN REACH BED RAILS UP X2.
--- NOTE | 2020-06-04 14:09 | NUR ---
PATIENT LAYING IN BED WATCHING TV. VITALS AND I&OS ARE DONE AND DOCUMENTED. CALL LIGHT IS IN REACH. NO FURTHER NEEDS AT THIS TIME.
--- NOTE | 2020-06-04 14:52 | NUR ---
Updated notes from Dr. Cain and Dr. Ceballos faxed to Mayra at [facility] for update.
--- NOTE | 2020-06-04 16:48 | NUR ---
Repositioned in bed after osmani-care completed and desitin placed to buttocks and scrotum/groin. Does complain of discomfort with osmani-care. Verblizes desire to eat, informed supper will arrive around 1700. Verbalizes understanding. Call light in reach, bed rails up.
--- NOTE | 2020-06-04 17:25 | NUR ---
Calls multiple times asking for supper. MACHINE CRATER attempts to get blood glucose level, patient refuses. This nurse in to obtain blood glucose prior to supper, patient continues to refuse and refuses insulin as well. Glucose sample obtained from IV site. Glucose of 111, informed patient no insulin needed. Patient states his sugars are always low and he does not need them checked and does not need insulin. Informed of need to keep glucose levels down for healing of wound etc. Continues to refuse. States he does not believe doctor has ordered glucose checks. Unable to educate patient, as he continues to argue.
--- NOTE | 2020-06-04 17:59 | NUR ---
Patient remains in bed, wheelchair bound at baseline. Dr. Ceballos was in this AM and changed dressing to right foot. Miller was DC'd. LR was decreased to 50 mL/hour. Incontinent of bowel and bladder today, osmani-care completed, desitin applied every 2-3 hours. Open areas around anus remain unchanged. Zofran given for "abdominal pain," Tylenol given for foot pain bilat. Beginning to refuse glucose checks and insulin this evening, even with education.
--- NOTE | 2020-06-04 19:32 | NUR ---
RECEIVED REPORT FROM DAY SHIFT RN. PATIENT IS RESING IN BED WATCHING TV. PATIENT DENIES ANY NEEDS. CALL LIGHT IN REACH.
--- NOTE | 2020-06-04 20:37 | NUR ---
PATIENTS ATTEND CHANGED AND LUISITO CARE COMPLETED. DESITIN APPLIED TO LUISITO AREA AND GROIN AREA. PATIENT REPOSTIONED IN BED. PATIENT DENIES ANY PAIN. PATIENTS ASSEMENT COMPLTED. PATIENT REMAINS ON 2L VIA NC. PATIENT DENIES ANY NAUSEA. HEEL PROTECTORS PLACED ON BILAT FEET. PATIENT HAS DRESSING ON RIGHT FOOT THAT IS C/D/I. PATIENTS EVENING MEDICATIONS GIVEN PER ORDER. NO FURTHER NEEDS NOTED. CALL LIGHT IN REACH.
--- NOTE | 2020-06-04 22:02 | NUR ---
PATIENT IS RESTING IN BED WITH EYES CLOSED, RR 19. CALL LIGHT IN REACH.
--- NOTE | 2020-06-04 22:39 | NUR ---
CALL LIGHT ANSWERED. PUDDING AND JELLO PROVIDED PER PATIENT'S REQUEST. NO OTHER NEEDS AT THIS TIME. CALL LIGHT IN REACH.
--- NOTE | 2020-06-04 23:46 | NUR ---
PATIENT IS RESTING IN BED WITH EYES CLOSED, RR 19. CALL LIGHT IN REACH.
--- NOTE | 2020-06-05 00:16 | NUR ---
PATIENT CALLED. THIS J2EE ANDROID DEVELOPER AND PRIMARY RN BRODERICK CLEANED PATIENT. PATIENT IS INCONTINENT. PATIENT HAD SEMI LOOSE BOWEL MOVEMENT. BARRIER CREAM APPLIED. PATIENT REPOSITIONED. BED ALARM ON FOR SAFETY. CALL LIGHT IN REACH.
--- NOTE | 2020-06-05 00:18 | NUR ---
PATIENTS ATTEND CHANGED. PATIENT HAD MED LOOSE BM. LUISITO CARE PROVIDED AND BARRIER CREAM APPLIED TO BOTTOM AND GROIN AREA. PATIENT REPOSTIONED IN BED. PATIENT COMPLAINS OF NAUSEA. PATIENT GIVEN PRN NAUSEA MEDICATION. PATIENT DENIES ANY FURTHER NEEDS. CALL LIGHT IN REACH.
--- NOTE | 2020-06-05 00:32 | NUR ---
PATIENT CALLED. ANTONIO PROVIDED PER PATIENT'S REQUEST.
--- NOTE | 2020-06-05 01:06 | NUR ---
PATIENT REPOSITIONED IN BED PER REQUEST PATIENT CONTINUES TO HOLLER OUT. WHEN ROOM IS ENTERED, PATIENT DENIES THE NEED FOR ANYTHING. NO FURTHER NEEDS NOTED CALL LIGHT IN REACH.
--- NOTE | 2020-06-05 03:22 | NUR ---
PATIENT CALLED ON THE CALL LIGHT. WHEN ROOM WAS ENTERED PATIENT BEGAN DEMANDING THAT HIS HOSPITAL BED SHEETS BE REMOVED. EDUCATED PATIENT THAT THE SHEETS WHERE UNDER HIM AND THAT THEY COULD NOT BE REMOVED. PATIENT STATED " GET OUT". THIS RN LEFT ROOM. IMMEDIATELY PATIENT PRESSED CALL LIGHT. WHEN ROOM WAS ENTERED PATIENT HOLLERED "GET OUT". EDUCATED PATIENT THAT HE USED THE CALL LIGHT AND ASKED WHAT HE NEEDED HELP WITH. PATIENT STATED "I USED IT TO TELL YOU TO GET OUT" EDUCATED PATIENT ON PROPER USE OF CALL LIGHT. CLINICAL PARTNER PRESENT IN ROOM. PATIENT YELLED AT THIS RN TO LEAVE. BUT THAT CLINICAL PARTNER COULD STAY. PATIENT WAS ASKED BY CLINICAL PARTNER NOT TO YELL. BOTH RNS LEFT ROOM. PATIENT IS RESTING IN BED WATCHING TV. CALL LIGHT IN REACH.
--- NOTE | 2020-06-05 04:54 | NUR ---
PATIENT RESTED ON AND OFF DURING THE LATER PART OF THE SHIFT. PATIENT IS ON 2L NC, AND THIS IS CHRONIC FOR HIM. PATIENT HAS ATTEND IN PLACE. PATIENT IS ON A 60G ADA DIET. PATIENT RECEIVED PRN NAUSEA MEDICATION. PATIENT IS BED/WHEELCHAIR BOUND AT BASELINE. PATIENT IS WORKING WITH ST AND PT. PATIENT HAS LEFT SIDED WEAKNESS. PATIENT REFUSED BIPAP. PATIENT HAS A REDDENED LUISITO AREA, CREAM APPLIED PER ORDER. PATIENT IS CONFUSED AT TIMES AND HOLLERS. PATIENT DOES NOT USE CALL LIGHT.
--- NOTE | 2020-06-05 05:57 | NUR ---
V/S AND I&O'S COMPLETED. CHANGED INCONTINENT ATTENDS. PATIENT HAD BOWEL MOVEMENT AND VOIDED LARGE AMOUNT. PATIENT REPOSITIONED.CALL LIGHT WITHIN REACH.
--- NOTE | 2020-06-05 06:01 | NUR ---
PATIENTS ATTEND CHANGED. PATIENTS INTAKE AND OUPUT RECORED. PATIENTS VITALS TAKEN AND RECORDED. PATIENT IS RESTLESS AND REPORTS PAIN "ALL OVER". PATIENT GIVEN PRN TYLENOL PER ORDER. PATIENT REPOSTIONED IN BED. PATIENT DENIES ANY FURTHER NEEDS. CALL LIGHT IN REACH.
--- NOTE | 2020-06-05 07:05 | NUR ---
PATIENT IV HAS INFILTRATED. NEW IV PLACED. PATIENT TOLERATED WELL. NO NEEDS NOTED. CALL LIGHT IN REACH.
--- NOTE | 2020-06-05 07:12 | NUR ---
Report from Goran Alvarez RN. Patient resting in bed with eyes closed, respirations even and unlabored. Allowed to rest. Call light in reach. Bed rails up.
--- NOTE | 2020-06-05 09:12 | NUR ---
LYING IN BED. AM MEDICATIONS GIVEN PRESCRIBED. TAKES WITHOUT DIFFICULTY. AWAITING BREAKFAST. STATES HE IS HUNGRY. HAVING ABDOMINAL PAIN, BUT DOES NOT DESCRIBE IT. HEAD OF BED ELEVATED. DENIES OTHER NEEDS. CALL LIGHT IN REACH, BED RAILS UP X2.
--- NOTE | 2020-06-05 11:08 | NUR ---
PATIENT IN BED. WATCHING TV. CALL LIGHT IN REACH, DENIES NEEDS.
--- NOTE | 2020-06-05 12:54 | NUR ---
Placed on sling for lift to transfer to MRI bed as MRI staff will be on floor at approximately 1300 for MRI study.
--- NOTE | 2020-06-05 13:06 | NUR ---
Taken to MRI on MRI bed.
--- NOTE | 2020-06-05 13:31 | NUR ---
PT LAYING IN DARKENED RM, O2 NC IN USE. PT IS HANGING ON TO PULLUP BAR, APPARENTLY TRYING TO GET COMFORTABLE. PT QUIET, SPOKE SOFTLY AND ALWAYS APPROPRIATELY. PT STATED HE WAS ABLE TO SLEEP SOME LAST NIGHT, BLESSING GIVEN AND ENOURAGEMENT. PT DECLINED READING MATERIAL AND CLOSED EYES
--- NOTE | 2020-06-05 14:09 | NUR ---
PT CALLING OUT "HELP." THIS RN TO ROOM. PT STATES "MY HEART POPPED OUT. i CAN SEE IT OUT THERE." PT POINTS OUT TO NURSES STATION. PT UNABLE TO FUTHER CLARIFY WHAT HIS CONCER IS. HEART RATE REGULAR WITH LOUD MURMUR. DR. MOLINA AWARE. BED RAILS UP. CALL LIGHT WITHIN REACH.
--- NOTE | 2020-06-05 14:36 | NUR ---
Patient osmani-care completed and desitin applied to osmani-area. osmani-rectal area with more open areas noted, extremely painful to clean, surround tissue slightly macerated. Repositioned off buttocks. Incontinent of bowel and bladder. Denies other needs. spouse in room with patient at this time.
--- NOTE | 2020-06-05 15:07 | NUR ---
patient refused a bed bath. briefs were changed. call light in reach. no futher needs at this time.
--- NOTE | 2020-06-05 16:16 | NUR ---
PICC INSERTION NOTE: ASKED BY DR LOPEZ TO EVALUATE PATIENT FOR POTENTIAL PICC LINE PLACEMENT DUE TO CUSTOMER RELATIONS REPRESENTATIVE ABX NEEDED. AFTER REVIEWING THE CHART AND INTERVIEWING THE PATIENT, NO ABSOLUTE CONTRAINDICATIONS WERE IDENTIFIED. PATIENT'S WAS ABLE TO SIGN CONSENT FORM AND PATIENT AND ABLE TO ASK QUESTIONS. PATIENT'S RIGHT ARM WAS EVALUATED ONLY DUE TO HX OF CVA WITH DEPENDENT EDEMA TO LEFT ARM. PTS BASILIC WAS IDENTIFIED AND LOOKED TO BE A GOOD CANDIDATE, A 4FR PICC WILL ONLY TAKE UP 18% OF THE VESSEL. CDC RECOMMENDED GUIDELINES FOR STERILE PREP OF INSERTION SITE WAS THEN FOLLOWED. CEPHALIC VEIN WAS ACCESSED EASILY UPON THE FIRST ATTEMPT. BRISK, DARK, NONPULSATILE BLOOD WAS RETURNED. GUIDEWIRE THREADED EASILY INTO VEIN, WELL INTRODUCER, AND PICC LINE. SEVERAL ATTEMPTS WERE MADE TO ADJUST PICC LINE USING THE SHERLOCK TIP GUIDE/MAGNET AND ECG TRACING. CHEST XRAY OBTAINED, AND PICC WITHDRAWN 5CM. 2ND CHEST XRAY DONE. STERILE DRESSING APPLIED AND CHEST XRAY TAKEN. AWAITING OFFICIAL RADIOLOGIST READ ON CHEST XRAY. REPORT GIVEN TO LORETTA ZARATE. PATIENT GIVEN EDUCATION MATERIAL ON PICC. PRESSURES DRESSING APPLIED WITH GUAZE AND COBAN. PATIENT/ ENCOURAGED TO ASK QUESTIONS REGARDING HER PICC NEEDED.
--- NOTE | 2020-06-05 16:21 | NUR ---
PICC line inserted by PICC nurse. Turned and changed by this nurse and aide. Desitin to osmani-area. Repositioned. Spouse in room, visiting patient.
--- NOTE | 2020-06-05 18:33 | NUR ---
Reposition 2-3 hours, desitin to osmani-area. PICC line placed today. SL remains in place at this time. LR continues infusing at 50mL/hour. Glucose checks completed and insulin given with lunch and supper. Yells out intermittently.
--- NOTE | 2020-06-05 19:49 | NUR ---
RECEIVED REPORT FROM DAY SHIFT RN. PATIENT IS RESTING IN BED. ANTONIO PROCVIDED. AT BEDSIDE. CALL LIGHT IN REACH.
--- NOTE | 2020-06-05 20:30 | NUR ---
IN TO GET VITALS AND CHANGE PT DUE TO INCONT URINE AND BM, CREAM APPLIED WITH RNs HELP
--- NOTE | 2020-06-05 21:15 | NUR ---
PATIENT ASSESMENT COMPLETED. PATIENTS ATTEND CHANGED AND PER I CARE COMPLETED. CREAM APPLIED TO SCROTAL AND BUTTOCK AREA PER ORDER. PATIENTS BUTTOCK ARE REMAINS REDDENED. VITALS TAKEN AND RECORDED. INTAKE AND OUPUT RECORDED. IV INFUSING PER ORDER. RIGHT FOOT DRESSING C/D/I. PATIENT COMPLAINS OF PAIN "ALL OVER". PRN MEDICATION FOR PAIN GIVEN PER ORDER. PATIENTS SCROTAL AREA SWOLLEN AND RED, ELEVATED ON PILLOW. NO FURTHER NEEDS NOTED. CALL LIGHT IN REACH.
--- NOTE | 2020-06-06 00:32 | NUR ---
PATIENT IS RESTING IN BED WITH EYES CLSOD, RR 17. CALL LIGHT IN REACH.
--- NOTE | 2020-06-06 03:29 | NUR ---
PATIENTS ATTEND CHANGE. LUISITO CARE COMPLETED. PATIENT REPOSITIONED IN BED. PATIENT TOLERATED ACTIVITY WELL. NO FURTHER NEEDS NOTED. CALL LIGHT IN REACH.
--- NOTE | 2020-06-06 03:29 | NUR ---
IN WITH RN TO CHECK AND CHANGE PT ATTENDS DUE TO INCONT FLOATED PT AT HIPS
--- NOTE | 2020-06-06 05:14 | NUR ---
PATIENT RESTED WELL DURING THE SHIFT. PATIENT IS ON 2L VIA NC AND THIS IS CHRONIC FOR HIM. PATIENT HAS ATTEND IN PLACE. PATIENT IS ON A 60G ADA DIET. PATIENT RECEIVED PRN NAUSEA MEDICATION. PATIENT IS BED/WHEELCHAIR BOUND AT BASELINE. PATIENT IS WORKING WITH ST AND PT. PATIENT HAS LEFT SIDED WEAKNESS. PATIENT REFUSED BIPAP. PATIENT HAS A REDDENED LUISITO AREA, CREAM APPLIED PER ORDER. PATIENT IS CONFUSED AT TIMES AND HOLLERS. PATIENT DOES NOT USE CALL LIGHT.
--- NOTE | 2020-06-06 06:01 | NUR ---
PATIENTS ATTEND CHANGED, LUISITO CARE PERFORMED AND CREAM APPLIED PER ORDER. PATIENT REPOSITIONED IN BED. VTITALS TAKEN AND REOCRDED. INTAKE AND OUPUT REOCRDED. PATIENT COMPLAINS OF PAIN STATING :IT HURTS ALL OVER". TYLENOL PRN GIVEN PER ORDER. FRESH ICE WATER PROVIDED. PATIENT DENIES ANY FURTHER NEEDED. CALL LIGHT IN REACH.
--- NOTE | 2020-06-06 08:06 | NUR ---
Received call from Mayra at [facility], requesting if Reagan will return today. Updated pt will not return today. Progress note from 06/05/20 faxed.
--- NOTE | 2020-06-06 09:00 | NUR ---
PT BG 157. 1 UNIT HUMALOG GIVEN IN LEFT UPPER ARM. PT SITTING UP IN BED EATING BREAKFAST. MORNING MEDICATIONS GIVEN. LINEZOLID INFUSING INTO AMAN PICC @ 300 MLS/HR. BRIEFS CHECKED AND REMAIN DRY. PT DONE EATING BREAKFAST. TURNED FROM LEFT SIDE TO RIGHT W/ ASSISTANCE OF DANIELA KAHN. SCROTUM REMAINS ELEVATED W/ TOWELS FOR SOME MINIMAL SCROTAL EDEMA. PT DENIES FURTHER NEED. CALL LIGHT IN REACH.
--- NOTE | 2020-06-06 09:36 | NUR ---
PATIENT AWAKE IN BED, VITALS AND I&OS CHARTED. 2PA TO REPOSTITION PATIENT, PILLOWS UNDER LEFT HIP. BRIEF IS DRY. CALL LIGHT IN REACH, NO OTHER NEEDS AT THIS TIME
--- NOTE | 2020-06-06 12:00 | NUR ---
PT REFUSED NOON ACCUCHECK FOR BG.
--- NOTE | 2020-06-06 12:11 | NUR ---
patient glucose check
--- NOTE | 2020-06-06 13:23 | NUR ---
PATIENT CURRENTLY ON ZYVOX, WHICH HAS A FOOD-DRUG INTERACTION WITH FOODS/BEVERAGES HIGH IN TYRAMINE. WE DO NOT HAVE HIGH TYRAMINE FOODS ON OUR MENU HERE. DISCHARGE PLAN IS FOR PATIENT TO RETURN TO [facility], THEREFORE EDUCATION ON HIGH TYRAMINE FOODS/BEVERAGES IS NOT APPROPRIATE AT THIS TIME. WILL CONTINUE TO MONITOR.
--- NOTE | 2020-06-06 14:09 | NUR ---
PATIENT AWAKE IN BED, 3 PERSON ASSIST TO CHANGE AND CLEAN PATIENT. PATIENT TOLERATED WELL, ALTHOUGH VERY PAINFUL. DESITIN APPLIED. PILLOWS PLACED UNDER LEFT ARM AND HIP. JELLO PROVIDED PER REQUEST. [place] LIGHT IN REACH
--- NOTE | 2020-06-06 15:15 | NUR ---
PICC LINE DRESSING CHANGED TO AMAN. 5 CM EXPOSED AND 25 CM CIRCUMREFERENCE. PT TOLERATED WELL. BRISK BLOOD RETURN NOTED. POSI-FLOW CAPS CHANGED.
--- NOTE | 2020-06-06 15:37 | NUR ---
Plan for dc remains return to [facility] when pt is cleared medically.
--- NOTE | 2020-06-06 17:00 | NUR ---
PT REFUSING ACCUCHECK ONCE AGAIN DESPITE PT EDUCATION. FÉLIX ZARATE DISCUSSED WITH PT AND BLOOD DRAWN FROM PICC FOR BG (215). 3 UNITS OF HUMALOG GIVEN. PT REMINDED THAT THIS CANNOT OCCUR W/ EVERY ACCUCHECK, ONLY W/ MORNING LABS. PT STATES UNDERSTANDING, MAY NEED REINFORCEMENT AND EDUCATION FURTHER. PT ON LEFT SIDE WITH PILLOWS. CALL LIGHT IN REACH.
--- NOTE | 2020-06-06 17:56 | NUR ---
PATIENT AWAKE IN BED, EATING DINNER. VITALS AND I&OS CHARTED. CALL LIGHT IN REACH.
--- NOTE | 2020-06-06 19:00 | NUR ---
ATTEND SOILED. PT INCONTINENT OF URINE AND STOOL. CHANGED AND DESITIN APPLIED LIBERALLY. SCROTAL AREA REMAINS MODERATELY SWOLLEN AND SLIGHTLY RED ON LEFT SIDE. PT REPOSITIONED TO RIGHT SIDE W/ PILLOWS TO PREVENT FURTHER SKIN BREAKDOWN. SKIN AROUND RECTUM RED AND WEEPING. CONTINUE Q2H TURN. CALL LIGHT IN REACH.
--- NOTE | 2020-06-06 19:20 | NUR ---
PATIENT AWAKE IN BED, 3PA TO ROLL AND CHANGE PATIENT. INCONTINENT OF BM AND URINE. PATIENT REPOSITIONED IN BED. PATIENT IN VERY GOOD SPIRITS THIS AFTERNOON, TELLING STORIES ABOUT HIS FAMILY AND GRANKIDS. CALL LIGHT AND PERSONAL ITEMS WITHIN REACH
--- NOTE | 2020-06-06 19:25 | NUR ---
coffee provided to pt at this time, no further needs
--- NOTE | 2020-06-06 20:04 | NUR ---
SHIFT REPORT FROM NURSE VASQUEZ. PT IN BED WITH HIS AT BEDSIDE. PT DENIES NEEDS AT THIS TIME. CALL LIGHT WITHIN REACH. PT IN VIEW OF NURSES STATION.
--- NOTE | 2020-06-06 21:04 | NUR ---
IN ROOM FOR EVENING ASSESSMENT, VITALS, MEDS. PT REFUSED CBG AT FIRST AND THEN LATER AGREED. CBG 219 REQUIRING 3UNITS SS INSULIN. LEFT ARM REMAINS EDEMATOUS. BANDAGE ON R FOOT CDI. IV ABX INFUSING PER ORDER. PT REQUESTS SOUP; CHICKEN NOODLE SOUP PROVIDED. VSS. PICC LINE DRESSING CDI. CALL LIGHT WITHIN REACH; PT IN VIEW OF NURSES STATION.
--- NOTE | 2020-06-06 22:30 | NUR ---
in with rn to change pt's attends
--- NOTE | 2020-06-06 23:24 | NUR ---
pt called, asked for curtain to be pushed all the way open, no furhter needs
--- NOTE | 2020-06-07 00:40 | NUR ---
PT CALLED, WANTING SOMETHING TO DRINK OR EAT, PER RN ABLE TO PROVIED SUGAR FREE JELLO PER PT PREFERENCE, NO FURTHER NEEDS AT THIS TIME
--- NOTE | 2020-06-07 02:54 | NUR ---
PT REPOSITIONED TO A RIGHT TILT WITH PILLOWS UNDER LEFT SIDE. PT REQUESTS LIGHTS OUT IN ROOM. CALL LIGHT WITHIN REACH. PT IN VIEW OF NURSES STATION FOR SAFETY. NO FURTHER NEEDS AT THIS TIME.
--- NOTE | 2020-06-07 04:15 | NUR ---
PT CALLED, ASKING FOR A WARM DRINK, ABLE TO PROVIDE PT WITH WARM BROTH PER 60G CARB DIET ORDER
--- NOTE | 2020-06-07 05:10 | NUR ---
IN TO GET VITALS, WITH RN CHANGED PTs ATTENDS, FRESH ICE WATER, NO FURTHER NEEDS AT THIS TIME
--- NOTE | 2020-06-07 05:18 | NUR ---
IN ROOM FOR MORNING ASSESSMENT AND VITALS. VSS. PT WAS INCONTINENT OF URINE AND A SMALL BM. SCROTAL/PENILE EDEMA INCREASING. PT GROWING INCREASINGLY DEFIANT ABOUT TURNING Q2 AND BEING CLEANED IN RECTAL AREA. FRESH WATER PROVIDED. NO FURTHER NEEDS AT THIS TIME. CALL LIGHT WITHIN REACH.
--- NOTE | 2020-06-07 07:30 | NUR ---
Patient refused glucose check. Yelled for this mortgage assistant to "leave him alone"
--- NOTE | 2020-06-07 08:02 | NUR ---
PT INITIALLY REFUSING CBG THIS MORNING. AFTER ENCOURAGEMENT AND EDUCATION, PT FINALLY ACCEPTED. CBG 193. REQUESTING BREAKFAST, ORDERED. BED WEIGHT 113.9 KG. A WEIGHT GAIN OF 28.6 KG SINCE ADMIT ON 06/02. DR. RAGSDALE NOTIFIED OF WEIGHT GAIN. PT POSITIONED ON RIGHT SIDE W/ PILLOWS. CALL LIGHT IN REACH. CALL APPROPRIATELY.
--- NOTE | 2020-06-07 09:55 | NUR ---
PT INCONTINENT OF URINE AND STOOL. CHANGED AND DESITIN APPLIED TO LUISITO AREA. REPOSITIONED TO LEFT SIDE W/ PILLOWS. LINEZOLID INFUSION COMPLETE, RESUMED AT LR @ 50 MLS/HR. CALL LIGHT IN REACH.
--- NOTE | 2020-06-07 09:59 | NUR ---
3PA TO REPOSITION AND CHANGE PATIENTS BRIEF/GOWN. INCONT OF URINE AND STOOL. DESITIN APPLIED LIBERALLY TO RECTUM AND GROIN. PATIENT VERY PAINFUL TO TOUCH IN REACTAL AREA, RED AND IRRITATED. REPOSITIONED INTO RIGHT SIDE WITH PILLOWS UNDER LEFT HIP/SHOULDER. REFUSED BEDBATH. CALL [facility] IN [place], NO OTHER NEEDS AT THIS TIME
--- NOTE | 2020-06-07 11:47 | NUR ---
PATIENT REFUSED CBG, "I'M NOT EATING LUNCH"
--- NOTE | 2020-06-07 12:00 | NUR ---
PT REFUSING CBG AND STATES HE DOES NOT WANT LUNCH. SS INSULIN HELD. PHYSICAL THERAPIST LETI IN TO WORK W/ PT FOR EVALUATION AND EXERCISES.
--- NOTE | 2020-06-07 12:51 | NUR ---
IN TO GIVE PT PO [email or web address].
--- NOTE | 2020-06-07 15:30 | NUR ---
3PA TO GET PATIENT INTO [place] THE WHEELCHAIR, PATIENT WANTED TO GO FOR A WALK. THIS POLICY DIRECTOR AND POLICY DIRECTOR LINO WHEELED HIM ONCE AROUND NURSES STATION. PATIENT READY TO GO BACK TO BED. LINENS CHANGED, CLEAN BRIEF ON. PATIENT REQUESTS NO PILLOWS UNDER HIS BODY OR ARMS. CALL LIGHT IN REACH, NO OTHER NEEDS AT THIS TIME
--- NOTE | 2020-06-07 17:42 | NUR ---
CBG 204. 3 UNITS OF HUMALOG GIVEN IN RA.
--- NOTE | 2020-06-07 19:45 | NUR ---
CALL LIGHT ON, PT STATE HE IS FEELING CONFUSED, PT DESCRIBED 'FEELING LOST', FELT LIKE HIS BED WAS HIGH UP IN THE AIR, THIS SINGING TELEGRAM PERFORMER AND IN RM, REASURING PT AT THIS TIME, RN INFORMED, REMAINS IN RM,
--- NOTE | 2020-06-07 19:56 | NUR ---
PATIENT RESTING IN BED AT THIS TIME VISITING WITH HIS . PATIENT HAS NO CURRENT CARE NEEDS. CALL LIGHT IS IN REACH.
--- NOTE | 2020-06-07 21:50 | NUR ---
IN TO GET VITALS, RN IN TO ASST WITH CHANGING PTs ATTENDS, FRESH ICE WATER GIVEN AT THIS TIME NO FURTHER NEEDS
--- NOTE | 2020-06-07 22:11 | NUR ---
PATIENT AWAKE AND COOPERATIVE. BLOOD SUGAR WAS 200 AND 3UNITS SQ INSULIN GIVEN. PATIENT TOOK HIS PO MEDICATIONS WITHOUT DIFFICULTY. CRISS GILES IN THE ROOM WITH THIS RN. PATIENT TURNED TO HIS RIGHT SIDE AFTER INCONTINENT ATTENDS WITH A SMALL BROWN PASTY BM WERE CHANGED AND DESITIN APPLIED TO COCCYX, BUTTOCKS, AND PERIAREA. ASSESSMENT COMPLETE AND PATIENT HAD NO OTHER NEEDS AT THIS TIME. CALL LIGHT IS IN REACH.
--- NOTE | 2020-06-08 00:01 | NUR ---
PATIENT YELLED FORM HIS ROOM AND THIS RN RESPONDED. PATIENT SAID HE NEEDED SOMETHING FOR PAIN IN HIS LOWER LEGS THEY ARE BOTH HURTING 09/27. 650MG PO TYLENOL WAS GIVEN AND PATIENT WAS SATISFIED WITH THIS. PATIENT'S CALL LIGHT IS IN REACH AND PATIENT CAN BE SEEN FROM THE NURSES STATION.
--- NOTE | 2020-06-08 01:29 | NUR ---
PATIENT TURNED TO HIS LEFT SIDE. PATIENT HAS BEEN RESTING QUIETLY AFTER HIS DOSE OF TYLENOL. PATIENT HAD ME TURN OFF HIS TV. CALL LIGHT IS IN REACH.
--- NOTE | 2020-06-08 02:12 | NUR ---
CALL LIGHT ON MULITPLE TIMES, PT ASKING FOR JELLO AND POPCICLE, OR IF WE HAVE ANTHING ELSE TO EAT, ABLE TO PROVIDE SUGARFREE JELLO, NEXT PT WANTS THE TV ON, PT ALSO ASKING ME TO STRAIGHTEN OUT TRAPPEZE CHAIN,
--- NOTE | 2020-06-08 03:30 | NUR ---
PATIENT RESTING QUIETLY AT THIS TIME, EYES ARE CLOSED, RESPIRATIONS REGULAR AND EVEN, CALL LIGHT IN REACH. PATIENT CAN BE SEEN FROM THE NURSES STATION.
--- NOTE | 2020-06-08 03:42 | NUR ---
PATIENT REPOSITIONED TO HIS BACK. PATIENT TOLERATED IT WELL. CALL LIGHT IN REACH. NO OTHER CARE NEEDS AT THIS TIME.
--- NOTE | 2020-06-08 05:00 | NUR ---
PATIENT HAS RESTED ON AND OFF THROUGH THE NIGHT. PATIENT COMPLAINED OF PAIN ONCE AND RECEIVED TYLENOL PO WHICH SEEMED TO RESOLVE THE ISSUE WITH THE DISCOMFORT IN HIS LEGS. PATIENT HAS BEEN TURNED THROUGH THE NIGHT AND HAS HAD 2 EPISODES OF BOWEL AND URINARY INCONTINECE. PATIENT WAS WASHED UP AND NEW ATTENDS WERE PLACED AND DESITIN APPLIED LIBRALLY TO LUISITO-AREA AND BUTTOCKS. PATIENT REMAINS ON 2L/NC AND VS HAVE BEEN STABLE. PICC LINE INFUSING, DRAWING AND FLUSHING WELL. CALL LIGHT IS IN REACH.
--- NOTE | 2020-06-08 07:10 | NUR ---
SHIFT REPORT GIVEN TO ELLIOT ELIZABETH. PATIENT IS RESTING QUIETLY AT THIS TIME.
--- NOTE | 2020-06-08 11:25 | NUR ---
2PA CHANGED BRIEF, INCONTINENT OF STOOL AND URINE, DESITIN CREAM LIBERALLY APPLIED. PATIENT FLOATED WITH 4 PILLOWS UNDER HIPS AND UPPER BODY. CALL LIGHT IN REACH, VISITING, STEPPED OUT OF ROOM AT THIS TIME
--- NOTE | 2020-06-08 13:50 | NUR ---
PATIENT AWAKE IN BED, AT BEDSIDE. PATIENT INCONT OF URINE AND STOOL, 3PA- NEW BRIEF, CHUK, GOWN AND DRAW SHEET PROVIDED. DESITIN CREAM APPLIED LIBERALLY BY ELLIOT TIPTON. PATIENT C/O AMOUNT OF TIME IT TAKES TO CLEAN HIM UP, BUT TOLERATED WELL. CALL LIGHT IN REACH, NO OTHER NEEDS AT THIS TIME
[2020-06-08] MEDS ORDERED: GABAPENTIN300 MG PO (14:17)
--- NOTE | 2020-06-08 14:20 | NUR ---
Patient in bed resting. Patient recently changed and osmani care provided. Patient's hob elevated. No needs at this time. Call light within reach.
--- NOTE | 2020-06-08 19:47 | NUR ---
PATIENT RESTING QUIETLY AT THIS TIME, RESPIRATIONS REGULAR AND EVEN, EYES CLOSED, CALL LIGHT IN REACH, PATIENT CAN BE SEEN FROM THE NURSES STATION.
--- NOTE | 2020-06-08 21:20 | NUR ---
CALL LIGHT ANSWERED, pt'S OXYGEN OFF, NC REPLACED IN NARES. TEMPERATURE IN ROOM ADJUSTED REQUESTED. CALL LIGHT WITHIN REACH. pt HAS NO ADDITIONAL REQUESTS AT THIS TIME.
--- NOTE | 2020-06-08 21:45 | NUR ---
V/S AND BLOOD SUGAR CHECK DONE. CHICKEN BROTH AND JELLO X2 PROVIDED.
--- NOTE | 2020-06-08 22:40 | NUR ---
2 PA. THIS PATCH SANDER AND PRIMARY RN KEILA CLEANED PATIENT FROM BOWEL MOVEMENT AND URINE INCONTINENT. MONSIVAIS/LUISITO CARE DONE AND APPLIED BARRIER CREAM. PLACED FRESH ATTENDS. PATIENT REPOSITIONED.
--- NOTE | 2020-06-08 22:40 | NUR ---
PATIENT CLEANED UP FROM BOWEL AND URINE INCONTINANCE. DESITIN APPLIED LIBARALLY TO LUIS[place]-AREA AND BUTTOCKS. PATIENT POSITION CHANGED AND PATIENT FLOATED UP OFF HIS BACKSIDE WITH BILAT PILLOWS. HEAD OF BED ELEVATED. PATIENT HS ON NEW ATTENDS AND NEW CHUX WAS PLACED. PATIENT'S WATER WAS FILLED AND PATIENT HAS NO OTHER NEEDS AT THIS TIME.
--- NOTE | 2020-06-09 00:53 | NUR ---
PATIENT REPOSITIONED TO HIS LEFT SIDE. PATIENT HAS NO OTHR NEEDS AT THIS TIME. CALL LIGHT IN REACH.
--- NOTE | 2020-06-09 03:07 | NUR ---
PATIENT REPOSITIONED TO HIS RIGHT SIDE BY THIS RN. CALL LIGHT IN REACH AND PATIENT CAN BE SEEN FROM THE NURSES STATION.
--- NOTE | 2020-06-09 05:18 | NUR ---
PATIENT HAS HAD A MUCH BETTER NIGHT TONIGHT THAN THE PRIVIOUS NIGHT. HAS RESTED BETTER. ONLY ONLY 1 REAL PASTY BOWELT MOVEMENT AFTER HOLDING PM SENNA TO HELP KEEP STOOL OFF EXCORIATED RECTAL AREA. PICC LINE FLUSHES AND DRAWS WELL. SWELLING IN EXTREMITES CONTINUES TO IMPROVE. PATIENT EATING AND TAKING IN FLUIDS WELL. PATIENT HAS HAD NO COMPLAINTS OF PAIN TONIGHT. PATIENT JUST TURNED TO HIS RIGHT SIDE AFTER WET ATTENDS CHANGED AND A SMALL SMEAR OF STOOL CLEANED UP. CALL LIGHT IN REACH AND PATIENT CAN BE SEEN FROM THE NURSES STATION.
--- NOTE | 2020-06-09 07:20 | NUR ---
Patient resting in bed, eyes closed, respirations even and non labored. Patient close to RN station.
--- NOTE | 2020-06-09 09:00 | NUR ---
FAX ORDERS, PASSR, SCRIPT TO [facility]. TEXTED ADOLFO TO LET HER KNOW PT HAS BEEN CLEARED FOR DC. SHE REPLIED SHE WILL TAKE THE ORDERS TO THE RN.
--- NOTE | 2020-06-09 09:10 | NUR ---
both nares swabbed for covid-19 without complication. sample taken to [facility] for rapid testing.
--- NOTE | 2020-06-09 10:50 | NUR ---
NOTIFIED ORDERS HAVE BEEN ACCEPTED BY [facility]. NOTIFIED BY PLYCOR OPERATOR, PTIS REFUSING TO HAVE PICC DCD. CALLED AND UPDATED ERNA ZARATE AT [facility]. ORDER ADDED BY DR RAGSDALE FOR PICC CARE AND FOR [facility] TO DC WHEN PT AGREES. CALLED AND SCHEDULED EMS TRANSPORT FOR 1115.
--- NOTE | 2020-06-09 11:27 | NUR ---
PT DOES NOT WANT PICC LINE REMOVED, DISCUSSED WITH DR. RAGSDALE, OK TO LEAVE PICC IN. PICC LINE FLUSHED AND HEP LOCKED.
--- NOTE | 2020-06-09 11:54 | NUR ---
Patient declined to have IV's removed. PICC line heparin flushed. Notified Tony Bernal RN of IV sites.
== END 2020-06-09 11:44 | DRG 177 ==
LOC: ED 08:48 → MS 08:49 → CCU 16:45 → MS 06-02 10:59 → CCU 06-02 10:59 → MS 06-03 17:10
PROVIDERS: ADMIT Student in an Organized Health Care Education/Training Program; ATTEND Student in an Organized Health Care Education/Training Program
PROC: 5A09357 Assistance with Respiratory Ventilation, Less than 24 Consecutive Hours, Continuous Positive Airway Pressure (ICD-10-PCS; 2020-06-02)
PROC: 02HV33Z Insertion of Infusion Device into Superior Vena Cava, Percutaneous Approach (ICD-10-PCS; principal; 2020-06-05 15:00)
DX: J15.212 Pneumonia due to Methicillin resistant Staphylococcus aureus (principal); J96.21 Acute and chronic respiratory failure with hypoxia; G93.41 Metabolic encephalopathy; J96.22 Acute and chronic respiratory failure with hypercapnia; J44.0 Chronic obstructive pulmonary disease with (acute) lower respiratory infection; I69.354 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cting left non-dominant side; M86.671 Other chronic osteomyelitis, right ankle and foot; L97.413 Non-pressure chronic ulcer of right heel and midfoot with necrosis of muscle; N17.9 Acute kidney failure, unspecified; Z20.822 Contact with and (suspected) exposure to COVID-19; I25.10 Atherosclerotic heart disease of native coronary artery without angina pectoris; G47.33 Obstructive sleep apnea (adult) (pediatric); I35.0 Nonrheumatic aortic (valve) stenosis; G89.4 Chronic pain syndrome; E11.42 Type 2 diabetes mellitus with diabetic polyneuropathy; E87.5 Hyperkalemia; E11.69 Type 2 diabetes mellitus with other specified complication; N14.1 Nephropathy induced by other drugs, medicaments and biological substances; T50.8X5A Adverse effect of diagnostic agents, initial encounter; E11.621 Type 2 diabetes mellitus with foot ulcer; Z79.899 Other long term (current) drug therapy; Z74.01 Bed confinement status; Z79.02 Long term (current) use of antithrombotics/antiplatelets; Z79.4 Long term (current) use of insulin; Z79.891 Long term (current) use of opiate analgesic; Z79.82 Long term (current) use of aspirin
CPT/HCPCS: 36415; 36569; 36600; 51701; 51702; 71045; 73630; 73721; 74177; 80048; 80053; 81001; 82803; 83605; 83735; 83880; 84100; 84484; 85025; 87040; 87088; 93005; 93010; 94660; 94760; 94762; 96366; 96368; 96372; 96376; 97162; 97163; 99285-25; C1751; C9803; G0378; J0456; J0692; J0696; J1650; J1815; J1940; J2020; J2405; J2550; J3370; J7030; J7040; J7060; J7121; Q9967; U0003

== ENCOUNTER 2020-06-10 10:51 | Emergency (ER) | payer OTHER ==
[~2020-06-10] VITALS: Ht 177.8 cm; Wt 114.0 kg
[~2020-06-10 10:51] MED LIST changes: +LINEZOLID600 MG PO; +PROBIOTIC1 EAC5 PO
--- OUTSIDE RECORDS SUMMARY | 2020-06-10 10:54 | XMS ---
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 - 2 Visits in 30 Days CARE PROVIDERS [facility] Correction Facility [employer] TechnologiesENCOM[facility]AST VALLEYT[facility] [employer]. \DATAllegroH[facility] [employer] PHONE: [phone] [facility] 01/08/2019-Current PHONE: [phone] Leonard Lopez [facility] Current PHONE: [phone] DEREK PERRY [facility] \F\ [facility]: FRANAC 03/27/2019-Current [facility] PHONE: [phone] Jalen has no Care Guidelines for this patient. Care History Medical/Surgical 03/27/2019 [facility] - PATIENT HAS PCP-DR ROSLYN JONES AT [facility] HIS PCP- - LAST VISIT WITH DR JONES WAS ON 02/05/19 AND PT WAS SCHEDULED FOR PATIENT- PATIENT WAS SUPPOSED TO BE SEEN ON 03/22/2019 FOR PT - PROVIDER DOES NOT HAVE RECORDS. - PATIENT RECENTLY HAD A GEC DONE BY THE [facility] PROVIDER IN OCTOBER 2018. - [facility] WILL HAVE ALL RECENT ED RECORDS SENT TO PCP AT THE [facility]-PATIENT DOES NOT HAVE DR [facility] PCP. EMiguel Angel VISIT COUNT (12 MO.) 9 [facility] TOTAL 9 NOTE: Visits indicate total known visits. ED/UCC VISIT TRACKING (12 MO.) 06/10/2020 10:52 [facility] [place] TYPE: Emergency COMPLAINT: - DIFFICULTY BREATHING 06/01/2020 08:48 [facility] [place] TYPE: Emergency COMPLAINT: - NAUSEA 04/23/2020 13:12 [facility] [place] TYPE: Emergency COMPLAINT: - LETHARGIC, POSSIBLE INFECTION 04/22/2020 16:12 [facility] [place] TYPE: Emergency COMPLAINT: - R FOOT WOUND DIAGNOSES: - manager terminal (current) use of oral hypoglycemic drugs - Iron deficiency anemia, unspecified - Heart failure, unspecified - Type 2 diabetes mellitus with foot ulcer - Hyperlipidemia, unspecified - Hypertensive heart disease with heart failure - Gastro-esophageal reflux disease without esophagitis - Type 2 diabetes mellitus with diabetic neuropathy, unspecified - manager terminal (current) use of aspirin - Old myocardial infarction - 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 - Type 2 diabetes mellitus with foot ulcer - Other terminal clerk (current) drug therapy 02/24/2020 09:19 [facility] [place] TYPE: Emergency COMPLAINT: - ABDOMINAL 02/11/2020 14:06 [facility] [place] TYPE: Emergency COMPLAINT: - POSSIBLE GI 01/24/2020 11:46 [facility] [place] TYPE: Emergency COMPLAINT: - FALL 08/23/2019 08:28 [facility] [place] TYPE: Emergency COMPLAINT: - MULTIPLE COMPLAINTS DIAGNOSES: - care home (current) use of insulin - Anemia, unspecified - Acute pancreatitis without necrosis or infection, unspecified - Type 2 diabetes mellitus with diabetic polyneuropathy - Exposure to other specified factors, initial encounter - Constipation, unspecified - care home (current) use of aspirin - Unspecified abdominal pain - Unspecified fracture of T7-T8 vertebra, initial encounter for closed fracture - manager terminal (current) use of antithrombotics/antiplatelets - Other terminal clerk (current) drug therapy 08/08/2019 14:55 [facility] [place] TYPE: Emergency COMPLAINT: - SEPSIS INPATIENT VISIT TRACKING (12 MO.) 06/02/2020 10:59 [facility] [place] TYPE: Medical Surgical COMPLAINT: - PNEUMONIA DIAGNOSES: - manager terminal (current) use of insulin - 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cting left non-dominant side - care home (current) use of opiate analgesic - Acute and chronic respiratory failure with hypoxia - Other chronic osteomyelitis, right ankle and foot - 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rosis of muscle - Metabolic encephalopathy - Acute kidney failure, unspecified - Type 2 diabetes mellitus with other specified complication - Obstructive sleep apnea (adult) (pediatric) - care home (current) use of antithrombotics/antiplatelets - manager terminal (current) use of aspirin - Nephropathy induced by other drugs, medicaments and biological substances - Chronic obstructive pulmonary disease with (acute) lower respiratory infection - Bed confinement status - Acute and chronic respiratory failure with hypercapnia - Type 2 diabetes mellitus with foot ulcer - Adverse effect of diagnostic agents, initial encounter - Other terminal clerk (current) drug therapy - Atherosclerotic heart disease of [place] coronary artery without angina pectoris - Hyperkalemia - Chronic pain syndrome - Pneumonia due to Methicillin resistant Staphylococcus aureus - Nonrheumatic aortic (valve) stenosis - Type 2 diabetes mellitus with diabetic polyneuropathy 04/24/2020 15:[address] [facility] [place] TYPE: Medical Surgical COMPLAINT: - COCCI DIAGNOSES: - Type 2 diabetes mellitus with foot ulcer - 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rosis of bone - Resistance to penicillins - 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cting left non-dominant side - Other constipation - Personal history of nicotine dependence - Chronic pain syndrome - Other terminal clerk (current) drug therapy - Anemia, unspecified - Sepsis, unspecified organism - Personal history of traumatic brain injury - Atherosclerotic heart disease of [place] coronary artery without angina pectoris - Type 2 diabetes mellitus with diabetic peripheral angiopathy without gangrene - Other specified sepsis - Type 2 diabetes mellitus with diabetic polyneuropathy - Hyperkalemia - care home (current) use of insulin - care home (current) use of aspirin - Local infection of the skin and subcutaneous tissue, unspecified - care home (current) use of antithrombotics/antiplatelets - Chronic systolic (congestive) heart failure - Dorsalgia, unspecified - Obstructive sleep apnea (adult) (pediatric) - Type 2 diabetes mellitus with hyperglycemia - Nonrheumatic aortic (valve) stenosis - care home (current) use of opiate analgesic 04/23/2020 13:13 [facility] [place] TYPE: Observation COMPLAINT: - PNEUMONIA, DIARRHEA DIAGNOSES: - Iron deficiency anemia, unspecified - Other malaise - care home (current) use of oral hypoglycemic drugs - Elevated white blood cell count, unspecified - Type 2 diabetes mellitus with diabetic peripheral angiopathy without gangrene - Other nonspecific abnormal finding of lung field - manager terminal (current) use of aspirin - Nausea - Hypertensive heart disease with heart failure - Coronary angioplasty status - Diarrhea, unspecified - manager terminal (current) use of antithrombotics/antiplatelets - Hyperlipidemia, unspecified - 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 - Hemiplegia and hemiparesis following unspecified cerebrovascular disease affecting left non-dominant side - Old myocardial infarction - Type 2 diabetes mellitus with diabetic polyneuropathy - Other specified diseases of anus and rectum - Atherosclerotic heart disease of [place] coronary artery without angina pectoris - Type [...] syndrome - Iron deficiency anemia, unspecified - care home (current) use of opiate analgesic - Other specified abnormal findings of blood chemistry - 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cting left non-dominant side - Elevation of levels of lactic acid dehydrogenase [LDH] - Other specified noninfective gastroenteritis and colitis - Obstructive sleep apnea (adult) (pediatric) - Acute and chronic respiratory failure with hypercapnia - Dehydration - care home (current) use of antithrombotics/antiplatelets - Hyperlipidemia, unspecified - Constipation, unspecified - Acute kidney failure, unspecified - manager terminal (current) use of opiate analgesic - Other [...] ankle and joints of right foot - care home (current) use of antithrombotics/antiplatelets - manager terminal (current) use of aspirin - Contact with [...] exposure to other viral communicable diseases - manager terminal (current) use of aspirin - Gastro-esophageal reflux [...] - Iron deficiency anemia, unspecified - Other half-way (current) drug therapy - Atelectasis - Other terminal clerk (current) drug therapy 02/11/2020 18:[address] [...] - Chronic diastolic (congestive) heart failure - care home (current) use of antithrombotics/antiplatelets - Hypertensive heart disease with heart failure - Obstructive sleep apnea (adult) (pediatric) - Fecal impaction - Benign prostatic hyperplasia without lower urinary tract symptoms - care home (current) use of insulin - Hyperlipidemia, unspecified - care home (current) use of aspirin - Type 2 diabetes mellitus with diabetic peripheral angiopathy without gangrene - Chronic diastolic (congestive) heart failure - manager terminal (current) use of aspirin - Type 2 diabetes mellitus with foot ulcer - Adverse effect of unspecified narcotics, initial encounter - Type 2 diabetes mellitus with diabetic peripheral angiopathy without gangrene - Contact with and (suspected) exposure to other viral communicable diseases - 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cting left non-dominant side - Atherosclerotic heart disease of [place] coronary artery without angina pectoris - Other half-way (current) drug therapy - Other half-way (current) drug therapy - Benign prostatic hyperplasia without lower urinary tract symptoms - manager terminal (current) use of antithrombotics/antiplatelets - Patient's noncompliance with other medical treatment and regimen - Chronic pain syndrome - Contact with and (suspected) exposure to other viral communicable diseases - Dehydration - Type 2 diabetes mellitus with diabetic polyneuropathy - Fecal impaction - care home (current) use of insulin - Dehydration - Type 2 diabetes mellitus with foot ulcer - Type 2 diabetes mellitus with diabetic polyneuropathy - Patient's noncompliance with other medical treatment and regimen - Vomiting, unspecified - Chronic pain syndrome - Atherosclerotic heart disease of [place] coronary artery without angina pectoris 01/24/2020 18:[address] [facility] [place] TYPE: Medical Surgical COMPLAINT: - ACUTE HYPOXIC RESPIRATORY FAILURE DIAGNOSES: - Chronic systolic (congestive) heart failure - Carbuncle of back [any part, except buttock] - Iron deficiency anemia, unspecified - Hyperlipidemia, unspecified - Gastro-esophageal reflux disease without esophagitis - Dorsalgia, unspecified - care home (current) use of insulin - Personal history of traumatic brain injury - Unspecified open wound, right lower leg, initial encounter - 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cting left non-dominant side - Acute respiratory failure with hypoxia - Other terminal clerk (current) drug therapy - Chronic pain syndrome - 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 - manager terminal (current) use of opiate analgesic - Type 2 diabetes mellitus with diabetic peripheral angiopathy without gangrene - Contact with and (suspected) exposure to other viral communicable diseases - Metabolic encephalopathy - Obstructive sleep apnea (adult) (pediatric) - Type 2 diabetes mellitus with diabetic polyneuropathy - care home (current) use of non-steroidal anti-inflammatories (NSAID) - Benign prostatic hyperplasia without lower urinary tract symptoms - Hyperkalemia - Pneumonia due to other Gram-negative bacteria - manager terminal (current) use of aspirin - care home (current) use of antithrombotics/antiplatelets 08/23/2019 15:58 [facility] [place] DIAGNOSES: - Obesity, [...] Vomiting, unspecified - Fever, unspecified - Hypoxemia [email or web address]
--- NOTE | 2020-06-12 13:44 | EKG ---
[facility] [address] [place], [place] [address] Signed Normal sinus rhythm Possible Inferior infarct (cited on or before 24-JAN-2020) Abnormal ECG When compared with ECG of 01-JUN-2020 09:14, T wave amplitude has decreased in Anterolateral leads Confirmed by CLIFTON VASQUEZ MD ([id number]) on 06/12/2020 1:43:58 PM Electronically Signed By: CLIFTON VASQUEZ MD 06/12/20 1344 PATIENT NAME: SAROJ AMEZQUITA Electrocardiogram DATE OF : 49 PHYSICIAN: CLIFTON VASQUEZ MD REPORT #: [id number] REPORT IS CONFIDENTIAL AND NOT TO BE RELEASED WITHOUT AUTHORIZATION
== END 2020-06-10 14:25 | disposition home or self-care (01) ==
LOC: ED 10:51
DX: G47.33 Obstructive sleep apnea (adult) (pediatric) (principal); J96.22 Acute and chronic respiratory failure with hypercapnia; E11.42 Type 2 diabetes mellitus with diabetic polyneuropathy; E78.5 Hyperlipidemia, unspecified; K21.9 Gastro-esophageal reflux disease without esophagitis; I11.0 Hypertensive heart disease with heart failure; I50.20 Unspecified systolic (congestive) heart failure; I25.2 Old myocardial infarction; Z87.891 Personal history of nicotine dependence; Z79.899 Other long term (current) drug therapy; Z79.84 Long term (current) use of oral hypoglycemic drugs; Z79.82 Long term (current) use of aspirin
CPT/HCPCS: 36600; 71045; 80053; 82803; 83605; 84484; 85025; 93005; 93010; 94660; 99285-25